=== PATIENT | male | born 1945 | race Caucasian/White ===

== ENCOUNTER 2022-11-20 10:23 | Outpatient (OUT) | payer MEDICARE, SELFPAY ==
--- NOTE | 2022-11-20 | XR_ITS ---
The [address] [address] Patient Name: OLAF BRIONES MRN: [id number] date: 1945 Sex: M Assigned Patient Location: [facility] Current Patient Location: RAD Accession/Order Number: [id number] Exam Date: 11/20/2022 11:02 Report Date: 11/20/2022 11:58 At the request of: SHANNA IVORY Procedure: XR abdomen 1V EXAM: XR abdomen 1V HISTORY: Kidney stones N20.0 COMPARISON: None. TECHNIQUE: AP view of the abdomen. FINDINGS: Nonobstructive bowel gas pattern is noted. There are bilateral renal calculi, largest on the right measuring up to 5 mm and largest on the left measuring up to 3 mm. The osseous structures are intact. XR/XR abdomen 1V IMPRESSION: Nonobstructive bowel gas pattern. Bilateral nephrolithiasis. Electronically authenticated by: SHELLEY FRIEND Date: 11/20/2022 11:58
== END 2022-11-20 10:24 | disposition home or self-care (01) ==
LOC: RAD 10:28
PROVIDERS: PCP Family Medicine; Visit Provider Urology
DX: N20.0 Calculus of kidney (principal)
CPT/HCPCS: 74018

== ENCOUNTER 2022-12-27 11:57 | Outpatient (OUT) | payer MEDICARE, SELFPAY ==
--- NOTE | 2022-12-27 12:34 | PM.CN ---
Consult Note: HPI Data of Consult Patient: new to practice Requesting Physician: Ria Kirby NP Primary Care Provider: DAV PEGUERO Consult Narrative Reason for consult: establish care Narrative: Thomas Thorne a pleasant 77 year old male presents for evaluation and management of low back pain. Today rating pain 4/10 in low back, worse with activity and experiences weakness and cramping in legs the further he walks. Patient has benefitted from back bracing and PRN tylenol. Currently on Brilinta and had a heart attack in july of this year, currently in cardiac rehab. Patient has previously had great response to thermal RFAs in lumbar spine and would like to discuss this. cc:: CC: Ria Kirby NP Review of Systems ROS Status of ROS 10 or more systems reviewed and unremarkable except as noted in history and below Musculoskeletal Reports: back pain Exam Constitutional Documenting provider has reviewed patient's vital signs: yes Common normals: no apparent distress, oriented x3, healthy appearing, alert and well nourished General appearance: cooperative HENMT Common normals: normocephalic, hearing grossly normal bilaterally and moist oral mucous membranes Head and scalp: normocephalic Eye Common normals: PERRL Pupil: PERRL Neck & C-Spine Common normals: full ROM General: normal visual inspection Chest Common normals: inspection of chest normal Respiratory Common normals: normal respiratory effort, no retractions and no use of accessory muscles Back & Pelvis Lumbar spine/lower back: ROM limited, pain with ROM and straight leg raise negative bilaterally Sacroiliac joints: SI joint(s) abnormal (bilateral positive thigh thrust fabers gaenslens and rudolph) Extremity Common normals: normal to inspection and full ROM Neuro Common normals: oriented x3, CN's II-XII intact bilaterally, moves all extremities, no focal motor deficits, no sensory deficits noted and deep tendon reflexes 2+ bilaterally Sensorium/orientation: alert Gait (neuro): antalgic Motor exam: no movement abnormalities noted and strength abnormal (BLE 4/5) Psych Common normals: mental status grossly normal, thought process normal, cooperative, affect normal, speech normal and activity/motor behavior normal Speech: normal speech Thought process: normal thought process Results Additional Findings Additional findings: I have checked an OARRS report on this patient today and there are no aberrancies noted in the prescribing history.?? A drug screen was completed and reviewed within the last year, and if there has not been a drug screen completed we ordered one today to monitor higher risk, state monitored pain medication use. As part of providing excellent, safe, comprehensive care, the following was completed at our patient's visit: 1. A medication reconciliation and review to ensure accurate knowledge of current/active medications, including asking our patients to inform us about any [id number] medications or herbal remedies/nutritional supplements/alternative remedies. 2. A review to specifically ensure our patients have had annual screening for: elevated body mass index (BMI), tobacco use, screening for depression, and screening for unhealthy alcohol use. When screening is concerning, patients are provided with education and the specific recommendation to discuss the concerning health issue and treatment options with their primary care provider. Assessment and Plan Assessment and Plan (1) Lumbar spondylosis: (2) Lumbar stenosis with neurogenic claudication: (3) Muscle spasm: (4) Bilateral sacroiliitis: Plan continue HEP continue PRN Tylenol, avoid NSAIDs with blood thinner and heart hx discussed OTC topical lidocaine patches can continue to utilize backbrace when driving for extended period of time or really physically active, cautioned over use as this can decrease muscle strength in low back and abdomen update imaging of lumbar spine with xrays flexion and extension MRI of lumbar spine without contrast to evaluate neurogenic claudication bilateral L4-5 L5-S1 mbb x2 working towards thermal rfa follow up after procedure
== END 2022-12-27 11:58 | disposition home or self-care (01) ==
LOC: PM 11:57
PROVIDERS: PCP Family Medicine; Visit Provider Nurse Practitioner
DX: M47.816 Spondylosis without myelopathy or radiculopathy, lumbar region (principal); M48.062 Spinal stenosis, lumbar region with neurogenic claudication; M62.838 Other muscle spasm; M46.1 Sacroiliitis, not elsewhere classified
CPT/HCPCS: G0463

== ENCOUNTER 2022-12-27 13:02 | Outpatient (OUT) | payer MEDICARE, SELFPAY ==
--- NOTE | 2022-12-27 | XR_ITS ---
The [address] [address] Patient Name: OLAF BRIONES MRN: [id number] date: 1945 Sex: M Assigned Patient Location: [facility] Current Patient Location: [facility] Accession/Order Number: [id number] Exam Date: 12/27/2022 15:20 Report Date: 12/27/2022 23:37 At the request of: DAVID SCRUGGS Procedure: XR lumbar spine 6V w bending EXAM: XR lumbar spine 6V w bending HISTORY: low back pain COMPARISON: None. TECHNIQUE: 7 views lumbar spine with flexion and extension FINDINGS: There are 5 lumbar type vertebral bodies. No pars defects. Grade 1 anterolisthesis at L4-5. No significant change in anterolisthesis on dynamic imaging. Vertebral body heights are maintained. Multilevel degenerative disc disease most severe at L4-5 and L5-S1. Facet arthrosis is most notable at L4-5 and L5-S1. Incidental note of aortic vascular calcification. Degenerative changes of the sacroiliac joints. XR/XR lumbar spine 6V w bending IMPRESSION: Grade 1 anterolisthesis at L4-5 without significant change on dynamic imaging. Multilevel degenerative disc disease most severe at L4-5 and L5-S1 with facet arthrosis at these levels. Electronically authenticated by: JUSTIN ELIAS Date: 12/27/2022 23:37
== END 2022-12-27 13:03 | disposition home or self-care (01) ==
LOC: RAD 13:06
PROVIDERS: PCP Family Medicine; Visit Provider Nurse Practitioner
DX: M54.50 Low back pain, unspecified (principal); M51.36 Other intervertebral disc degeneration, lumbar region
CPT/HCPCS: 72114

== ENCOUNTER 2023-01-17 10:44 | Outpatient (OUT) | payer MEDICARE, SELFPAY ==
--- NOTE | 2023-01-17 10:48 | MR_ITS ---
The [address] [address] Patient Name: OLAF BRIONES MRN: [id number] date: 1945 Sex: M Assigned Patient Location: MRI Current Patient Location: MRI Accession/Order Number: [id number] Exam Date: 01/17/2023 11:00 Report Date: 01/17/2023 12:22 At the request of: DAVID SCRUGGS Procedure: MR lumbar spine wo con MR lumbar spine wo con, 01/17/2023 11:00 AM EST INDICATION: Lumbar Stenosis COMPARISON: Prior x-ray dated 12/27/2022 TECHNIQUE: Multiplanar, multisequential MRI images of lumbar spine were obtained without contrast. FINDINGS: For dictation purposes, the lowest complete disc space in the lumbar spine considered as L5-S1. There is grade 1 anterolisthesis of L4 on L5. There is signal abnormality on T1 and T2-weighted images in the vertebral bodies of visualized spine that may suggest bone marrow reconversion in appropriate clinical setting. Bilateral renal lesions with T2 prolongation not fully characterized by this study and statistically may suggest simple renal cyst. There is normal physiologic lumbar lordosis. The vertebral height is preserved. The conus medullaris is at the level of L1. No signal abnormality within the visualized spinal cord is noted. No neural foraminal narrowing or canal stenoses at the level of T12-L1 is noted. At the level of L1-L2, there are disc bulge with mild right and moderate left neuroforaminal narrowing and no canal stenosis. At the level of L2-L3, there are disc bulge with mild bilateral neuroforaminal narrowing and mild canal stenosis. At the level of L3-4, there are disc bulge with moderate right and mild left neuroforaminal narrowing and severe canal stenosis. There is ligamentum flavum thickening and facet joint arthrosis at this level. At the level of L4-5, there are grade 1 anterolisthesis uncovering disc with moderate bilateral neuroforaminal narrowing and severe canal stenosis. There is ligamentum flavum thickening and facet joint arthrosis at this level. At the level of L5-S1, there are disc bulge with no neuroforaminal narrowing and no canal stenosis. The paraspinal muscles are unremarkable. There is a sclerotic lesion in the left iliac bone not fully characterized by this study likely a bone island. 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 Electronically authenticated by: VIRGINIA HUTCHINS Date: 01/17/2023 12:22
== END 2023-01-17 10:45 | disposition home or self-care (01) ==
LOC: MRI 10:44
PROVIDERS: PCP Family Medicine; Visit Provider Nurse Practitioner
DX: M48.062 Spinal stenosis, lumbar region with neurogenic claudication (principal); M47.816 Spondylosis without myelopathy or radiculopathy, lumbar region; M51.36 Other intervertebral disc degeneration, lumbar region
CPT/HCPCS: 72148

== ENCOUNTER 2023-02-04 09:34 | Day surgery (SDC) | payer MEDICARE, SELFPAY ==
[2023-02-04 10:16] VITALS: BP 173/77; PULSE 75; RESP 16; TEMP 37; O2SAT 98
[2023-02-04 10:16] LABS: Glucometer 209 mg/dL (74-106)
[2023-02-04 10:45] VITALS: BP 157/79; PULSE 76; RESP 18; O2SAT 99
[2023-02-04 10:49] VITALS: BP 167/77; PULSE 67; RESP 18; O2SAT 99
--- NOTE | 2023-02-04 10:50 | W.PM.PROCNOT ---
Date of procedure: 02/04/23 Pre-op diagnosis: Lumbar spondylosis Post-op diagnosis: same as pre-op Procedure: Procedure: Bilateral L4-5, L5-S1 medial branch block Medications: Bupivacaine 0.25% 6cc The patient was seen and examined in the preoperative holding area.? An informed consent was obtained and placed on the chart.? The patient was brought to the medical procedure unit and placed in the prone position.? A timeout was completed verifying correct patient, procedure site, positioning, plan, and special equipment.? Using aseptic technique, the needle was placed at left L4. Under direct fluoroscopic visualization a Quincke-tipped spinal needle was advanced to the junction of the superior articulating process with the transverse process at the designated medial branch segment.? Preceded by negative aspiration, the above-mentioned injectate was placed in 1 mL aliquots.? The procedure was repeated at left L5, S1.? The needle was removed and insertion site was covered. The same procedure, at the same levels, was completed on the right side. The patient was taken to the postprocedural recovery area and monitored for an appropriate length of time before found suitable for discharge in the company of a responsible adult. Anesthesia: Local Surgeon: Alonzo Briscoe Pathology: none sent Condition: stable Disposition: no change
[2023-02-04] MEDS: LIDOCAINE HCL 2% PF 100 MG/5 ML VIAL 1 ML INJ (10:51)
[2023-02-04] MEDS: BUPIVACAINE HCL 0.25% PF 25 MG/10 ML VIAL 8 ML INJ (10:51)
== END 2023-02-04 10:54 | disposition home or self-care (01) ==
PROVIDERS: PCP Family Medicine; Visit Provider Anesthesiology
DX: M47.816 Spondylosis without myelopathy or radiculopathy, lumbar region (principal)
CPT/HCPCS: 36415; 64493; 64494; 82948

== ENCOUNTER 2023-02-13 07:12 | Outpatient (RCR) | payer MEDICARE, SELFPAY ==
--- NOTE | 2022-10-11 13:52 | CR1_ITS ---
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
--- NOTE | 2022-11-07 15:53 | CR1_ITS ---
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
--- NOTE | 2022-12-06 08:48 | CR1_ITS ---
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
--- NOTE | 2023-01-04 10:49 | CR1_ITS ---
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
--- NOTE | 2023-02-08 15:06 | CR1_ITS ---
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
== END 2023-02-15 17:00 | disposition home or self-care (01) ==
LOC: CR 07:12
PROVIDERS: PCP Family Medicine; Visit Provider Family Medicine
DX: I25.10 Atherosclerotic heart disease of native coronary artery without angina pectoris (principal); Z98.61 Coronary angioplasty status
CPT/HCPCS: 93798

== ENCOUNTER 2023-02-13 08:42 | Outpatient (OUT) | payer MEDICARE, SELFPAY ==
--- NOTE | 2023-02-13 09:26 | P.CN_ITS ---
Consult Note: HPI Data of Consult Patient: new to practice Requesting Physician: Ria Kirby NP Primary Care Provider: DAV PEGUERO Consult Narrative Reason for consult: establish care Narrative: Thomas Thorne a pleasant 77 year old male presents for evaluation and management of low back pain. Today rating pain 8/10 in low back and bilateral thighs, worse with activity and experiences weakness and cramping in legs the further he walks. Patient has benefitted from back bracing and PRN tylenol. Currently on Brilinta and had a heart attack in july of this year, currently in cardiac rehab. Patient had 25% relief from bilateral L4-5 L5-S1 facet medial branch block #1. Would like to review MRI and additional options. cc:: CC: Ria Kirby NP Review of Systems ROS Status of ROS 10 or more systems reviewed and unremark able except as noted in history and below Musculoskeletal Reports: back pain PFSH PFSH Medical History Kidney stone Surgical History History of transurethral resection of prostate ?Z98.890 - Other specified postprocedural states (ICD-10) ?Z90.79 - Acquired absence of other genital organ(s) (ICD-10) Meds Home Medications and Allergies Home Medications Medication Instructions Recorded Confirmed Type allopurinol 300 mg tablet 300 mg PO DAILY 01/23/23 02/04/23 History amlodipine 5 mg tablet 5 mg PO DAILY 01/23/23 02/04/23 History aspirin 81 mg tablet,delayed 81 mg PO DAILY 01/23/23 02/04/23 History release atorvastatin 80 mg tablet 40 mg PO DAILY 01/23/23 02/04/23 History carvedilol 6.25 mg tablet 6.25 mg PO Q12H 01/23/23 02/04/23 History lisinopril 2.5 mg tablet 2.5 mg PO DAILY 01/23/23 02/04/23 History nitroglycerin 0.4 mg sublingual 0.4 mg sublingual Q5M PRN chest 01/23/23 02/04/23 History tablet pain ticagrelor 90 mg tablet (Brilinta) 90 mg PO Q12H 01/23/23 02/04/23 History Allergies Allergy/AdvReac Type Severity Reaction Status Date / Time albuterol Allergy Verified 02/04/23 10:09 hydrochlorothiazide Allergy Verified 02/04/23 10:09 Exam Constitutional Documenting provider has reviewed patient's vital signs: yes Common normals: no apparent distress, oriented x3, healthy appearing, alert and well nourished General appearance: cooperative HENMT Common normals: normocephalic, hearing grossly normal bilaterally and moist oral mucous membranes Head and scalp: normocephalic Eye Common normals: PERRL Pupil: PERRL Neck & C-Spine Common normals: full ROM General: normal visual inspection Chest Common normals: inspection of chest normal Respiratory Common normals: normal respiratory effort, no retractions and no use of accessory muscles Back & Pelvis Lumbar spine/lower back: ROM limited, pain with ROM and straight leg raise negative bilaterally Extremity Common normals: normal to inspection and full ROM Neuro Common normals: oriented x3, CN's II-XII intact bilaterally, moves all extremities, no focal motor deficits, no sensory deficits noted and deep tendon reflexes 2+ bilaterally Sensorium/orientation: alert Gait (neuro): antalgic Motor exam: no movement abnormalities noted and strength abnormal (BLE 4/5) Psych Common normals: mental status grossly normal, thought process normal, cooperative, affect normal, speech normal and activity/motor behavior normal Speech: normal speech Thought process: normal thought process Assessment and Plan Assessment and Plan (1) Lumbar stenosis with neurogenic claudication: Assessment and Plan: The patient has had over 3 months of moderate to severe low back pain with NC with functional impairment and inadequate response to conservative care including NSAIDS (unless there are contraindication such as concurrent blood thinners), multiple oral or topical pain medications, and home exercise program/physical therapy.? Patient has completed >6 weeks of guided home exercise program and/or formal physical therapy program without relief of their symptoms.? I have reviewed the imaging of the lumbar spine and no red flags were identified.? The imaging reveals radiographic findings consistent with lumbar stenosis and lumbar radiculopathy We discussed the risks and benefits of the procedure with the patient, and we are NOT planning on using sedation as outlined in the guidelines from Medicare unless there is a documented reason that sedation would be strongly recommended.?? ?The procedure will be completed with fluoroscopic guidance.? (2) Lumbar spondylosis: (3) Muscle spasm: (4) Lumbar radiculopathy: Plan MRI reviewed, degenerative changes noted and multilevel severe stenosis. Patient is not interested in surgical consult. Patient would like to trial ESIs bilateral L3-4 TFESI under fluoroscopy with Dr Briscoe followed by bilateral L4-5 TFESI 2 weeks following if symptoms not improved from first injection continue current medications follow up 2 weeks after injection
== END 2023-02-13 08:43 | disposition home or self-care (01) ==
LOC: PM 08:59
PROVIDERS: PCP Family Medicine; Visit Provider Nurse Practitioner
DX: M48.062 Spinal stenosis, lumbar region with neurogenic claudication (principal); M47.816 Spondylosis without myelopathy or radiculopathy, lumbar region; M62.838 Other muscle spasm; M54.16 Radiculopathy, lumbar region
CPT/HCPCS: G0463

== ENCOUNTER 2023-03-04 08:38 | Day surgery (SDC) | payer MEDICARE, SELFPAY ==
--- OUTSIDE RECORDS SUMMARY | 2023-03-04 08:43 | XMS_ITS | CCD ---
Author Name Unknown Address [id number] [place] [address] Organization [facility] Care Team Providers Care 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 Name Role Phone Jame Barraza Unavailable Unavailable Unavailable JAME BARRAZA Primary Care Physician DR SHANNA IVORY Attending Unavailable CHRIS, DR JAME Bowers Primary Care Unavailable DR SHANNA IVORY Admitting Unavailable DR SHANNA IVORY Consulting Unavailable SAGIN[place], DR AMNA Saucedo Consulting Unavailable DOMINGUEZ GUTIERREZ Admitting Unavailable DOMINGUEZ GUTIERREZ Attending Unavailable DR JAME BARRAZA Primary Care Unavailable NON STAFF Primary Care Provider Unavailsigrid Cochran DO [facility] Emergency Provider DO Steven Zamora Attending Provider NON STAFF Primary Care Provider Unavailsigrid Cochran DO [facility] Emergency Provider [phone] DO Steven Zamora Admit Provider DO Steven Zamora Attending Provider MD Juanito Barney Other Provider [phone] JAME BARRAZA Primary Care Physician [phone] Steven Zamora Admitting Unavailable Steven Zamora Attending Unavailable NON STAFF Primary Care Unavailable Juanito Barney Consulting Unavailable Jame Barraza MD Primary Care Provider [phone] Nahomi Hernandez Unavailable DAVID ANDREWS Attending Unavailable DAVID ANDREWS Admitting Unavailable Dr. Jame Barraza Primary Care Unavailab alda Ling, Dr. Canada Attending Unavailusama Ling, Dr. Canada Referring Unavaila Dr. Jame Tejeda Edward Primary Care Unavailab Curtis, Dr. Nahomi Guerrero Primary Care Unavailab alda Ling, Dr. Canada Attending Unavaila ashley Ling, Dr. [place] Referring Unavaila ashley Zamora, Dr. Ben Wilson Attending Kushal Hernandez, Dr. Nahomi Guerrero Primary Care Unavailab alda Barraza, Dr. Jame Fountain Primary Care Unavailab alda Barraza, Dr. Jame Fountain Primary Care Unavailab alda Siddiqui, Estella Unavailable Shanna IVORY Attending Unavailable Shanna IVORY Attending Unavailable Keith Panchal H Attending Unavailable Alexandre KOROMA Attending Unavailable Alexandre KOROMA Referring Unavailable Alexandre KOROMA Attending Unavailable Ashutosh Ling MD Unavailable [phone] Dav Peguero MD Primary Care Provider [phone] ASHUTOSH LING Attending Unavailable DAV PEGUERO Primary Care Unavailable Alonzo Briscoe MD Attending Unavailable Allergies Allergy Classification Reported Allergen(s) Allergy Type Date of Onset Reaction(s) Facility (20 sources) Albuterol; Translations: [albuterol] Drug Allergy 11-12-19 12 Headache (finding), Other: See Comments, Headache [facility] (17 sources) hydroCHLOROthiazide; Translations: [hydroCHLOROthiazide TABS] Drug Allergy 08-21-19 Eruption of skin (disorder), Rash [facility] (4 sources) Sulfamethoxazole / Trimethoprim; Translations: [sulfamethoxazole-trim ethoprim] Drug Allergy Unknown (qualifier value) [facility] (1 source) Albuterol Drug Allergy [facility] (6 sources) hydroCHLOROthiazide; Translations: [HYDROCHLOROTHIAZIDE] Drug Allergy 08-21-19 Rash [facility] (2 sources) Adhesive Tape; Translations: [adhesive tape] Propensity to adverse reactions 08-22-19 [facility] (1 source) Albuterol Drug Allergy 08-21-19 [facility] (1 source) hydroCHLOROthiazide Drug Allergy 08-21-19 [facility] Medications Current Medications Medication Drug Class(es) Dates Sig (Normalized) Sig (Original) Albuterol (1 source) beta2-Adrenergic Agonist Albuterol Active aspirin 81 mg delayed release oral tablet (16 sources) Platelet Aggregation Inhibitor, Nonsteroidal Anti-inflammatory Drug Start: 01-09-2023 End: 01-09-2024 take 1 tablet by mouth every other day aspirin 81 mg EC tablet Indications: Arteriosclerotic cardiovascular disease Take 1 tablet (81 mg) by mouth every other day. 45 tablet 3 01/09/2023 01/09/2024 Active Start: 11-24-2020 End: 01-09-2023 take 1 tablet by mouth once daily aspirin, enteric coated (ASPIRIN, ENTERIC COATED) 81 mg EC tablet Take 81 mg by mouth once daily. 0 11/24/2020 Active take 1 tablet by rk th once daily Aspirin 81 81 MG 1 tablet Orally Once a day Active Comment on above: Take 81 mg by mouth once daily. hydroCHLOROthiazide (1 source) Thiazide Diuretic hydroCHLOROthi azide Active Completed/Discontinued Medications Medication Drug Class(es) Dates Sig (Normalized) Sig (Original) allopurinol 300 mg oral tablet (19 sources) Xanthine Oxidase Inhibitor Start: 10-02-2018 take 1 tablet by mouth once daily allopurinol (ZYLOPRIM) 300 mg tablet Take 300 mg by mouth once daily. 0 10/02/2018 Active Comment on above: Take 300 mg by mouth once daily. amLODIPine 5 mg oral tablet (19 sources) Dihydropyridine Calcium Channel Reynaldo Start: 10-24-2018 take 1 tablet by mouth once daily amLODIPine (NORVASC) 5 mg tablet Take 5 mg by mouth once daily. 0 10/24/2018 Active Comment on above: Take 5 mg by mouth o nce daily. atorvastatin 80 mg oral tablet (7 sources) HMG-CoA Reductase Inhibitor Start: 08-22-2022 take 1 tablet by mouth once daily Atorvastatin Calcium 80 MG Oral Tablet TAKE ONE TABLET BY MOUTH ONCE A DAY Quantity: 30 Refills: 11 Ordered: 02-Oct-2022 Ben Zamora DO Start : 01-Oct-2022 Active carvedilol 6.25 mg oral tablet (10 sources) alpha-Adrenergic Reynaldo, beta-Adrenergic Reynaldo Start: 08-22-2022 take 1 tablet by mouth twice daily at mealtime carvedilol (COREG) 6.25 mg tablet Take 6.25 mg by mouth twice daily with meals. 0 08/22/2022 Active Comment on above: Take 6.25 mg by mout h twice daily with meals. cholecalciferol 0.125 mg oral capsule (6 sources) Vitamin D Vitamin D 125 MC G (5000 UT) CAPS TAKE 1 CAPSULE Daily Quantity: 0 Refills: 0 Ordered: 24-Nov-2020 DO Active diclofenac sodium 75 mg delayed release oral tablet (20 sources) Nonsteroidal Anti-inflammatory Drug Start: 09-10-2016 take 1 tablet by mouth twice daily diclofenac, EC, (VOLTAREN) 75 mg EC tablet Take 75 mg by mouth twice daily. 0 10/24/2018 Active End: 01-09-2023 take 2 tablets by mouth once daily diclofenac (Voltaren) 75 mg EC tablet Take 2 tablets (150 mg) by mouth once daily. 0 01/09/2023 Discontinued (Therapy completed) take 1 tablet by rk th twice daily Diclofenac Sodium 75MG DR TAKE ONE TABLET BY MOUTH TWICE DAILY for 30 Not-Taking Comment on above: Take 75 mg by mouth twice daily. lisinopril 2.5 mg oral tablet (10 sources) Angiotensin Converting Enzyme Inhibitor Start: 08-22-2022 take 1 tablet by mouth once daily lisinopril 2.5 mg tablet Take 2.5 mg by mouth once daily. 0 08/22/2022 Active take 1 tablet by mouth once edelmira y lisinopril 5 mg tablet Take 1 tablet (5 mg) by mouth once daily. 0 Active take 0.5 tablet by mouth once da vangie Lisinopril 5 MG Oral Tablet TAKE 1/2 TABLET DAILY. Quantity: 45 Refills: 3 Ordered: 05-Sep-2022 Eva HAHN, Ashutosh Active Comment on above: Take 2.5 mg by mouth once daily. metoprolol tartrate 25 mg oral tablet (10 sources) beta-Adrenergic Reynaldo Start: 08-20-2022 End: 08-22-2022 take 25 mg by mouth once daily Metoprolol Tartrate Discontinued 25 MG PO Daily August 20, 2022 12:00am August 22, 2022 3:22pm Start: 10-21-2020 take 1 tablet by rk th once daily metoprolol 25 mg ER Tab 25 mg = 1 tab(s), Oral, Daily, Refills(s) 0 Start Date: 9/3/21 Status: Ordered Multi Vitamin Oral Tablet (6 sources) take 1 tablet by mouth once daily Multi Vitamin Oral Tablet TAKE 1 TABLET DAILY. Quantity: 0 Refills: 0 Ordered: 24-Nov-2020 DO Active nitroglycerin 0.4 mg sublingual tablet (10 sources) Nitrate Vasodilator Start: 09-15-19 Nitroglycerin 0.4 MG Sublingual Tablet Sublingual PLACE 1 TABLET UNDER THE TONGUE EVERY 5 MINUTES FOR UP TO 3 DOSES NEEDED FOR CHEST PAIN.CALL 911 IF PAIN PERSISTS. Quantity: 1 Refills: 3 Ordered: 14-Sep-2022 Ashutosh Ling MD Start : 14-Sep-2022 Active Start: 08-22-2022 nitroglycerin sublingual (NITROQUICK) 0.4 mg SL tablet Dissolve 0.4 mg under the tongue every 5 minutes as needed for chest pain. 0 08/22/2022 Active Nitroglycerin 0. 4 MG as directed Sublingual Active Comment on above: Dissolve 0.4 mg unde r the tongue every 5 minutes as needed for chest pain. rosuvastatin calcium 20 mg oral tablet (10 sources) HMG-CoA Reductase Inhibitor Start: 3 End: 3 take 20 mg by mouth once daily Rosuvastatin Discontinued 20 MG PO Daily August 20, 2022 12:00am August 22, 2022 3:22pm Start: 10-24-2018 take 10 mg by mouth once daily rosuvastatin 20 mg Tab 10 mg = 0.5 tab(s), Oral, Daily Start Date: 10/24/18 Status: Ordered take 1 tablet by rk once daily Rosuvastatin Calcium 10 MG Oral Tablet TAKE 1 TABLET DAILY. Quantity: 90 Refills: 3 Ordered: 01-Jun-2022 Ashutosh Ling MD Active ticagrelor 90 mg oral tablet (10 sources) Start: 08-22-2022 take 1 tablet by mouth twice daily ticagrelor (BRILINTA) 90 mg tablet Take 90 mg by mouth twice daily. 0 08/22/2022 Active Brilinta 90mg Ta kke as directed Active Comment on above: Take 90 mg by mouth twice daily. trospium chloride 20 mg oral tablet (2 sources) Cholinergic Muscarinic Antagonist Start: 08-30-2022 take 1 tablet by mouth twice daily trospium (SANCTURA) 20 mg tablet Take 1 tablet by mouth twice daily for hernandez discomfort. Stop taking 48 hours before hernandez removal. 30 tablet 1 08/30/2022 Active Comment on above: Take 1 tablet by rk th twice daily for hernandez discomfort. Stop taking 48 hours before hernandez removal. Zinc (6 sources) Zinc 15 MG TABS Take 1 tablet daily Quantity: 0 Refills: 0 Ordered: 24-Nov-2020 DO Active Problems Active Problems Problem Classification Problem Date Documented Da te Episodic/Chronic Acute myocardial infarction (8 sources) Myocardial infarction; Translations: [ST elevation (STEMI) myocardial infarction of unspecified site] Onset: 08-20-2022 08-20-2022 Chronic Calculus of urinary tract (8 sources) Kidney stone; Translations: [Calculus of kidney] Onset: 10-26-2021 Episodic Coagulation and hemorrhagic disorders (2 sources) Easy bruising; Translations: [Spontaneous ecchymoses] Onset: 01-09-2023 01-09-2023 Episodic Conditions associated with dizziness or vertigo (7 sources) Dizziness; Translations: [Dizziness and giddiness] Episodic Conduction disorders (6 sources) Heart block ; Translations: [Conduction disorder, unspecified] Onset: 08-20-2022 08-20-2022 Chronic Coronary atherosclerosis and other heart disease (11 sources) Coronary arteriosclerosis; Translations: [Atherosclerotic heart disease of [place] coronary artery without angina pectoris] Onset: 08-27-2022 08-28-2022 Chronic Coronary atherosclerosis and other heart disease (9 sources) Patient post percutaneous transluminal coronary angioplasty; Translations: [Percutaneous transluminal coronary angioplasty status] Onset: 01-08-2023 01-09-2023 Episodic Diabetes mellitus without complication (5 sources) Diabetes mellitus; Translations: [Type 2 diabetes mellitus without complication] Onset: 08-27-2022 10-24-2018 Chronic Diseases of white blood cells (2 sources) Leukocytosis; Translations: [Elevated white blood cell count, unspecified] Onset: 08-27-2022 08-27-2022 Chronic Disorders of lipid metabolism (15 sources) Hyperlipidemia; Translations: [Other and unspecified hyperlipidemia] Onset: 01-08-2023 01-09-2023 Chronic E Codes: Adverse effects of medical drugs (2 sources) Adverse effect of anticoagulant antagonists, vitamin K and other coagulants, initial encounter; Translations: [Anticoagulants causing adverse effects in therapeutic use] Onset: 08-27-2022 08-27-2022 Episodic Essential hypertension (20 sources) Hypertensive disorder; Translations: [Unspecified essential hypertension] Onset: 08-27-2022 Resolved: 01-09-2023 10-24-2018 Chronic Genitourinary symptoms and ill-defined conditions (15 sources) Microscopic hematuria; Translations: [Asymptomatic microscopic hematuria] Onset: 10-27-2021 Episodic Hyperplasia of prostate (7 sources) Benign prostatic hypertrophy with outflow obstruction; Translations: [Benign prostatic hyperplasia with lower urinary tract symptoms] Onset: 10-27-2021 Chronic Immunizations and screening for infectious disease (1 source) Patient encounter status; Translations: [Other specified vaccination] Episodic Inflammatory conditions of male genital organs (3 sources) Prostatitis 10-24-2018 Episodic Nutritional deficiencies (2 sources) Undernutrition; Translations: [Mild protein-calorie malnutrition] Onset: 08-29-2022 08-29-2022 Chronic Other diseases of kidney and ureters (1 source) Urinary tract obstruction; Translations: [Other obstructive and reflux uropathy] Onset: 08-26-2022 Episodic Other ear and sense organ disorders (1 source) Impacted cerumen, bilateral Episodic Other nutritional; endocrine; and metabolic disorders (4 sources) Body mass index 25-29 - overweight; Translations: [Body Mass Index 28.0-28.9, adult] Episodic Other nutritional; endocrine; and metabolic disorders (13 sources) Overweight in adulthood with body mass index of 25 or more but less than 30; Translations: [Overweight] Onset: 01-09-2023 01-09-2023 Episodic Other nutritional; endocrine; and metabolic disorders (2 sources) Body mass index (BMI) 26.0-26.9, adult; Translations: [Body mass index (BMI) 26.0-26.9, adult] Onset: 01-09-2023 Episodic Other screening for suspected conditions (not mental disorders or infectious disease) (20 sources) Cardiovascular stress test abnormal; Translations: [Other nonspecific abnormal results of function study of cardiovascular system] Onset: 01-08-2023 01-09-2023 Episodic Screening and history of mental health and substance abuse codes (11 sources) Ex-smoker; Translations: [Personal history of tobacco use] Episodic Comment on above: former cigar smoker; Syncope (5 sources) Syncope; Translations: [Syncope and collapse] Onset: 08-20-2022 08-20-2022 Episodic Unclassified (3 sources) Asymptomatic microscopic hematuria 10-27-2021 Urinary tract infections (1 source) Urinary tract infectious disease; Translations: [Urinary tract infection, site not specified] Onset: 08-26-2022 Episodic Past or Other Problems Problem Classification Problem Date Documented Da te Episodic/Chronic Unclassified (1 source) Onset: 01-09-2023 01-09-2023 Results Test Name Value Interpretation Reference Range Facility Ambulatory Visit Summaryon 1 Ambulatory Visit Summary OLAF BRIONES :1945 Visit Date:11/26/2022 Ambulatory Visit Instructions Your Diagnosis BPH with urinary obstruction Kidney stone Asymptomatic microscopic hematuria Tests Performed Urnls Dip Stick Auto w/o Microscopy POC [id number] XR Abdomen 1 View -- Results Pending -- Please visit your patient portal for your results or contact your primary care physician. Your Care Team Attending Physician - Shanna IVORY MD Primary Care Physician - SUDHIR HAHN, DAV Martinez This Is Your Medications List Contact prescribing physician if questions or concerns Misc Prescription ([facility] ASPIRIN EC 81 MG TABLET) allopurinol (allopurinol 300 mg Tab) amlodipine (amLODIPine 5 mg Tab) atorvastatin (atorvastatin 80 mg Tab) carvedilol (carvedilol 6.25 mg Tab) lisinopril (lisinopril 2.5 mg Tab) metoprolol (metoprolol 25 mg ER Tab) nitroglycerin (nitroglycerin 0.4 mg sublingual Tab) rosuvastatin (rosuvastatin 20 mg Tab) ticagrelor (Brilinta (ticagrelor) 90 mg oral tablet) Procedures Performed Cystourethroscopy with irrigation and evacuation of multiple obstructing clots (08/29/2022), Cystourethroscopy, with fulguration (including cryosurgery or laser surgery) of trigone, bladder neck, prostatic fossa, urethra, or periurethral glands (08/29/2022), Transurethral resection; residual or regrowth of obstructive prostate tissue including control of postoperative bleeding, complete (vasectomy, meatotomy, cystourethroscopy, urethral calibration and/or dilation, and internal urethrotomy are included) (08/29/2022), Cystoscopy (08/18/2013), TURP - Transurethral resection of prostate (2006), Urodynamics (2006), Transrectal biopsy of prostate using ultrasound (US) guidance (2005), ESWL - Extracorporeal shockwave lithotripsy for renal calculus (2000). Discharge Vitals Heart Rate (Peripheral) 58 Respiratory Rate 16 Blood Pressure 140/79 Height 172 cm Height 68 in Weight 77.4 kg Weight 170.28 lb BMI 26.16 What to do next Scheduled Follow-Up Appointments Saturday 8:45 AM EDT With: CACHORRO HAHN, Shanna Sánchez Where: [facility] Pathology Noteon 11-26-2022 Pathology Note [id number] [facility] Patient Educationon 11-27-19 Patient Education Nephrology Dietary Guidelines to Help Prevent Kidney Stones Kidney stones are deposits of minerals and salts that form inside your kidneys. Your risk of developing kidney stones may be greater depending on your diet, your lifestyle, the medicines you take, and whether you have certain medical conditions. Most people can lower their chances of developing kidney stones by following the instructions below. Your dietitian may give you more specific instructions depending on your overall health and the type of kidney stones you tend to develop. What are tips for following this plan? Reading food labels ? Choose foods with no salt added or low-salt labels. Limit your salt (sodium) intake to less than 1,500 mg a day. ? Choose foods with calcium for each meal and snack. Try to eat about 300 mg of calcium at each meal. Foods that contain 200?500 mg of calcium a serving include: ? 8 oz (237 mL) of milk, wsdtgpn-atyquqkunyvi-qiewd milk, and calcium-fortifiedfruit juice. Calcium-fortified means that calcium has been added to these drinks. ? 8 oz (237 mL) of kefir, yogurt, and soy yogurt. ? 4 oz (114 g) of tofu. ? 1 oz (28 g) of cheese. ? 1 cup (150 g) of dried figs. ? 1 cup (91 g) of cooked broccoli. ? One 3 oz (85 g) can of sardines or mackerel. Most people need 1,000?1,500 mg of calcium a day. Talk to your dietitian about how much calcium is recommended for you. Shopping ? Buy plenty of fresh fruits and vegetables. Most people do not need to avoid fruits and vegetables, even if these foods contain nutrients that may contribute to kidney stones. ? When shopping for convenience foods, choose: ? Whole pieces of fruit. ? Pre-made salads with dressing on the side. ? Low-fat fruit and yogurt smoothies. ? Avoid buying frozen meals or prepared deli foods. These can be high in sodium. ? Look for foods with live cultures, such as yogurt and kefir. ? Choose high-fiber grains, such as whole-wheat breads, oat bran, and wheat cereals. Cooking ? Do not add salt to food when cooking. Place a salt shaker on the table and allow each person to add his or her own salt to taste. ? Use vegetable protein, such as beans, textured vegetable protein (TVP), or tofu, instead of meat in pasta, casseroles, and soups. Meal planning ? Eat less salt, if told by your dietitian. To do this: ? Avoid eating processed or pre-made food. ? Avoid eating fast food. ? Eat less animal protein, including cheese, meat, poultry, or fish, if told by your dietitian. To do this: ? Limit the number of times you have meat, poultry, fish, or cheese each week. Eat a diet free of meat at least 2 days a week. ? Eat only one serving each day of meat, poultry, fish, or seafood. ? When you prepare animal protein, cut pieces into small portion sizes. For most meat and fish, one serving is about the size of the palm of your hand. ? Eat at least five servings of fresh fruits and vegetables each day. To do this: ? Keep fruits and vegetables on hand for snacks. ? Eat one piece of fruit or a handful of berries with breakfast. ? Have a salad and fruit at lunch. ? Have two kinds of vegetables at dinner. ? Limit foods that are high in a substance called oxalate. These include: ? Spinach (cooked), rhubarb, beets, sweet potatoes, and Bangladeshi chard. ? Peanuts. ? Potato chips, north korean fries, and baked potatoes with skin on. ? Nuts and nut products. ? Chocolate. ? If you regularly take a diuretic medicine, make sure to eat at least 1 or 2 servings of fruits or vegetables that are high in potassium each day. These include: ? Avocado. ? Banana. ? [place], prune, carrot, or tomato juice. ? Baked potato. ? Cabbage. ? Beans and split peas. Lifestyle ? Drink enough fluid to keep your urine pale yellow. This is the most important thing you can do. Spread your fluid intake throughout the day. ? If you drink alcohol: ? Limit how much you use to: ? 0?1 drink a day for women who are not . ? 0?2 drinks a day for men. ? Be aware of how much alcohol is in your drink. In the [place] one drink equals one 12 oz bottle of beer (355 mL), one 5 oz glass of wine (148 mL), or one 1? oz glass of hard liquor (44 mL). ? Lose weight if told by your health care provider. Work with your dietitian to find an eating plan and weight loss strategies that work best for you. General information ? Talk to your health care provider and dietitian about taking daily supplements. You may be told the following depending on your health and the cause of your kidney stones: ? Not to take supplements with vitamin C. ? To take a calcium supplement. ? To take a daily probiotic supplement. ? To take other supplements such as magnesium, fish oil, or vitamin B6. ? Take ledv-itt-gelzxzf and prescription medicines only as told by your health care provider. These include supplements. What foods should I limit? Limit your in (more content not included)... Normal [facility] RAD - MISCon 11-26-2022 ED [facility] [id number] Normal [facility] Urology Office/Clinic Noteon 11-26-2022 Urology Office/Clinic Note Chief Complaint 1yr KUB HPI Staff Pt is here today for 1yr KUB due to BPH, Kidney Stone & Microscopic Hematuria. *Allopurinol 300mg qd therapy. At that time PRW discussed DC'ing PSA checks due to pt's advancing age. Since then pt has gone [place] [facility] [place] CC: Lower Pelvic Pain & Blood clots in urine PVR at that time 500ml Catheter Placed C&S 600 cfu/ml Staphylococcus species coagulase negative Sandy not indicative of a Cath specimen CTU 08/26/22 Dr Koroma did see pt, due to recent cardiac cath & heart attack, pt was transferred to [facility]. There pt underwent Cysto/Clot Evacuation/Litholapaxy & TURP 08/28/22 Stone Analysis done 08/28/22 Pt states he has had dark colored urine for yrs, has been clear since the procedures. Denies all concerns at this time. History of Present Illness Tests reviewed: reviewed UA and KUB. I have reviewed the previous health record information and history for this patient from . I have reviewed and verified the staff HPI to be accurate for this encounter. There have been no associated fever, chills, flank pain, or blood in the urine. Denies any urinary infections since last encounter. Review of Systems PHQ Score Initial Depression Screen Score: 0 ROS - Provider Constitutional: denies weight loss, denies hot flashes. Eyes: denies eye problems. Gastrointestinal: denies nausea, denies vomiting. Cardiovascular: denies chest pain or angina. Integumentary: no dryness Musculoskeletal: denies musculoskeletal symptoms. ENMT: denies otolaryngeal symptoms. Respiratory: no shortness of breath. Heme/Lymph: denies easy bleeding tendency, denies easy bruising tendency. Psychiatric: no confusion, no anxiety. Genitourinary: See HPI. Physical Exam Vitals & Measurements HR: 58(Peripheral) RR: 16 BP: 140/79 HT: 68 in HT: 172 cm WT: 77.4 kg WT: 170.28 lb BMI: 26.16 General Appearance: alert, no distress, well nourished, well developed male. Assessment/Plan 1. BPH with urinary obstruction (N40.1: Benign prostatic hyperplasia with lower urinary tract symptoms) Pt. is not on any BPH medications at this time and is doing well overall w/ his urination w/ no bothersome symptoms. Pt states [facility] 2.5 done 04/15/20. Per last note, annual PSA checks are no longer needed due to pt's advancing age. Since then pt has gone [place] [facility] [place] CC: Lower Pelvic Pain & Blood clots in urine PVR at that time 500ml Catheter Placed C&S 600 cfu/ml Staphylococcus species coagulase negative Sandy not indicative of a Cath specimen CTU 08/26/22 Dr Koroma did see pt, due to recent cardiac cath & heart attack, pt was transferred to [facility]. There pt underwent Cysto/Clot Evacuation/Litholapaxy & TURP 08/28/22 Pt states he has had dark colored urine for yrs, has been clear since the procedures. Denies all concerns at this time. 2. Kidney stone (N20.0: Calculus of kidney) KUB 10/26/21 - bilateral nephrolithiasis, greater on the left. Right side harder to visualize due to bowel content. Continues Allopurinol 300mg qd. Will continue to monitor stones. Stone Analysis done 08/28/22 - CaOx [place] 50%, CaOx [place] 40%, and minor components 10% KUB 11/20/22 - bilat renal calculi, largest on Rt measuring up to 5mm and largest on Lt measuring up to 3mm Advised pt that the size of his stones are to the point that would most likely need treatment, but we are unable to treat them due to the pt needing to be on blood thinners since having a recent heart attack. Advised pt that we will continue to monitor them with repeat imaging. Advised pt that if one of the stones leaves the kidney, they may cause pain. Follow up in 1 yr w/KUB. All questions/concerns were discussed. Pt to call the office if he encounters any issues prior. Pt acknowledges understanding. -Will order KUB. 3. Asymptomatic microscopic hematuria (R31.21: Asymptomatic microscopic hematuria) Chronic; UA today is negative for blood and infection. Denies gross hematuria. S/p Cysto done 2018. Follow-up With When Contact Information CACHORRO HAHN, JENNIFER Carvalho In 1 year [facility] [address], [place] [address]- Additional Instructions: w/KUB Patient Education Dietary Guidelines to Help Prevent Kidney Stones I, Sheila Tripathi , personally scribed for Dr. Ivory on 11/26/2022 14:08:10. . .. Problem List/Past Medical History Ongoing Asymptomatic microscopic hematuria BPH with urinary obstruction BPH without urinary obstruction Diabetes Gross hematuria Hypertension Kidney stone Microscopic hematuria Myocardial infarction Prostatitis Weak urinary stream Historical No qualifying data Procedure/Surgical History Cystourethroscopy with irrigation and evacuation of multiple obstructing clots (08/29/2022), Cystourethroscopy, with fulguration (including cryosurgery or laser surgery) of trigone, bladder n (more content not included)... [facility] Comment on above: Result Comment: Elec tronically Signed By: CACHORRO HAHN, Shanna Sánchez\.br\Date and Time Signed: 11/26/22 14:10 EDT\.br\Electronically Co-Signed By: Sheila Tripathi\.br\Date and Time Co-Signed: 11/26/22 14:08 EDT Physician Orderon 11-20-2022 Physician Order [id number]#1.00CD:127 [facility] Auth for Release of Medical Recordson 09-27-2022 Auth for Release of Medical Records [id number]#1.00CD:127 [facility] Consultation Noteon 09-20-19 Consultation Note [id number]#1.00CD:127 [facility] Consultation Note [id number]#1.00CD:127 [facility] Consultation Note [id number]#1.00CD:127 [facility] Consultation Note [id number]#1.00CD:127 [facility] Lab Reportson 09-19-2022 Lab Reports [id number]#1.00CD:127 [facility] Lab Reports [id number]#1.00CD:127 Normal [facility] Lab Reports [id number]#1.00CD:127 Normal [facility] Lab Reports [id number]#1.00CD:127 [facility] Operative Reporton Operative Report [id number]#1.00CD:127 Normal [facility] Operative Report [id number]#1.00CD:127 [facility] CNPN Telephone (UROLMN) -- OLAF BRIONES ([id number]) 1945 M Date Time Provider Department 09/06/22 JUSTINE WILSON During your visit today, we recorded the following information about you: Justine Wilson RN 09/06/2022 10:31 AM Signed ----- Message from Jocelin Gr sent at 09/06/2022 8:23 AM EDT ----- Regarding: medciation script needed Contact: Pt is calling in to see if the flomax can be called in. The pharmacy is not at [facility]. I will need to call them when its done. Dr Koroma is asking why he is on flomax? Please advise. Justine Wilson RN 09/06/2022 10:31 AM Signed I tried calling the patient, no answer. Left VM. Dr. Andrews said patient can stop the flomax and trospium. She originally had recommended the flomax for residual prostate tissue but said he doesn't need to be on it. She is fine with him following up with Dr. Koroma for further management Justine Wilson RN Allergies As of Date: 09/06/2022 Noted Allergy Reaction ALBUTEROL 11/12/2011 14 - Other: See Comments HYDROCHLOROTHIAZIDE 08/20/2022 2 - Rash Date Reviewed: 08/31/2022 Reviewed by: Tung Rojo RN - Fully Assessed Reason for Visit: Patient Update [1234] Prescriptions as of 09/06/2022 - trospium (SANCTURA) 20 mg tablet Take 1 tablet by mouth twice daily for hernandez discomfort. Stop taking 48 hours before hernandez removal. - allopurinol (ZYLOPRIM) 300 mg tablet Take 300 mg by mouth once daily. - amLODIPine (NORVASC) 5 mg tablet Take 5 mg by mouth once daily. - carvedilol (COREG) 6.25 mg tablet Take 6.25 mg by mouth twice daily with meals. - ticagrelor (BRILINTA) 90 mg tablet Take 90 mg by mouth twice daily. - aspirin, enteric coated (ASPIRIN, ENTERIC COATED) 81 mg EC tablet Take 81 mg by mouth once daily. - lisinopril 2.5 mg tablet Take 2.5 mg by mouth once daily. - diclofenac, EC, (VOLTAREN) 75 mg EC tablet Take 75 mg by mouth twice daily. - nitroglycerin sublingual (NITROQUICK) 0.4 mg SL tablet Dissolve 0.4 mg under the tongue every 5 minutes as needed for chest pain. Problem List As Of Date 09/06/2022 Noted Resolved Hematuria [R31.9] 08/27/2022 Coronary artery disease involving [place]*08/27/2022 Adverse reaction to antiplatelet agent [T45.7X5*08/27/2022 Myocardial infarction (HCC) [I21.9] 08/27/2022 Essential (primary) hypertension [I10] 08/27/2022 Type 2 diabetes mellitus without complication, *08/27/2022 Leukocytosis [D72.829] 08/27/2022 Malnutrition of mild degree (HCC) [E44.1] 08/29/2022 Encounter Status:Closed by JUSTINE WILSON RN on 09/06/22 Normal [facility] Ambulatory Visit Summaryon 0 - Ambulatory Visit Summary OLAF BRIONES :1945 Visit Date:09/05/2022 Ambulatory Visit Instructions Your Care Team Primary Care Physician - CHRIS HAHN, JAME Bowers This Is Your Medications List allopurinol (allopurinol 300 mg Tab) amlodipine (amLODIPine 5 mg Tab) diclofenac (diclofenac sodium 75 mg Oral EC Tab) metoprolol (metoprolol 25 mg ER Tab) rosuvastatin (rosuvastatin 20 mg Tab) Procedures Performed Cystoscopy (08/18/2013), TURP - Transurethral resection of prostate (2006), Urodynamics (2006), Transrectal biopsy of prostate using ultrasound (US) guidance (2005), ESWL - Extracorporeal shockwave lithotripsy for renal calculus (2000). 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,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) Post PTCA (V45.82) (Z98.61) Orders Arteriosclerotic cardiovascular disease (ASCVD) Renew: Aspirin 81 MG Oral Tablet Delayed Release; TAKE 1 TABLET DAILY Renew: Lisinopril 5 MG Oral Tablet; TAKE 1/2 TABLET DAILY Arteriosclerotic cardiovascular disease (ASCVD), Hyperlipemia Renew: Atorvastatin Calcium 80 MG Oral Tablet; TAKE 1 TABLET AT BEDTIME Arteriosclerotic cardiovascular disease (ASCVD), Post PTCA Cardiac Rehab Referral Evaluation and Treatment Evaluate AND Treat Status: Hold For - Scheduling Requested for: [id number] Agreement : I agree to have my patient participate in the phase III outpatient cardiac rehabilitation program after completion of the phase II program. Consent : I consent to have my patient participate in the cardiac rehabilitation program. I will continue regular medical care of my patient throughout his/her participation in the program. Individualized Treatment Plan and Exercise Prescription : Request the Pulp Drier Firer to share responsibility for developing an ITP and exercise prescription for your patient only during enrollment in the phase II program I authorize the Cardiac Rehabilitation Department to : Current lab values are helpful in order to assess the lipid status and individualize diet therapy. A venous blood sample will be drawn and lipids analyzed at the laboratory I authorize the Cardiac Rehabilitation Department to : Schedule a symptom limited graded exercise test with 12 lead ECG prior to starting cardiac rehabilitation and at discharge, if needed. Overweight with body mass index (BMI) of 27 to 27.9 in adult Healthy Weight Tips; Status:Complete; Done: [id number] Some eating tips that can help you lose weight.; Status:Complete; Done: [id number] SocHx: Former smoker Tobacco Use Screening; Status:Complete; Done: [id number] Patient Instructions Please bring all medicines, vitamins, and herbal supplements with you when you come to the office. Prescriptions will not be filled unless you are compliant with your follow up appointments or have a follow up appointment scheduled as per instruction of your physician. Refills should be requested at the time of your visit. Follow up in 4 months [facility] cardiac rehab -one month History of Present Illness Assessment Patient is here for follow-up continue management for history of previous evaluation for dizziness, abnormal stress test, hypertension and hyperlipidemia. Since last time I saw him he presented to the hospital with acute inferior wall myocardial infarction. Cardiac catheterization showed RCA disease and moderate LAD disease. He was treated with PCI but following that he developed hematuria ultimately went to the [facility] where he underwent TURP and removal of bladder stone. His antiplatelet was not interrupted. Patient reports he is feeling better. He denies chest pain, lightheadedness, dizziness or syncope. He reports no recurrence of her hematuria over the last few days. Assessment 1. Recent presentation with acute inferior wall myocardial infarction and PCI to the RCA with moderate disease of the LAD 2. Borderline abnormal stress test. In the past treated conservatively due to lack of angina in the past and the size of ischemia his cardiac catheterization recently showed RCA disease which was stented and moderate LAD disease 3. Hypertension controlled on home recording with component of whitecoat effect 4. Hyperlipidemia 5. Borderline abnormal EKG 6. Borderline overweight 7. Previous history of dizziness improved and no recurrence 8. Recent history of hematuria improved after TURP and removal of bladder stone Plan 1. I reviewed with the patient results of his recent cardiac catheterization, lab work recent hospitalization record 2. I told him if there is any recurrence of his hematuria we will consider either switching him to Plavix or discontinuation of aspirin down the road 3. We discussed risk factor modification 4. I recommended cardiac rehab in 4 weeks if no further hematuria 5. Follow-up in 6 months with plan to repeat lab work 6. I I advised him to notify me change in cardiac status or symptoms Surgical History Problems Denied: History of Complete colonoscopy History of Prostate surgery History of Ureteroneocystostomy History of Urinary catheter placement Current Meds Medication NameInstruction Allopurinol 300 MG Oral TabletTAKE 1 TABLET DAILY. amLODIPine Besylate 5 MG Oral TabletTAKE 1 TABLET DAILY. Aspirin EC 81 MG TBECTAKE 1 TABLET (more content not included)... Normal [employer] Tobacco Screening.on 023 Adult depression screening assessment No [facility] [employer] DO Work Phone: Fall risk assessment a) No falls within the last year [facility] [employer] 250 DO Work Phone: Tobacco use status CP b) No M [facility] [employer] 250 DO Work Phone: CNPEliana [facility] ([id number]) 1945 M Date Time Provider Department 09/04/22 DEBORAH IBARRA PODCCP During your visit today, we recorded the following information about you: Deborah Ibarra RN 09/04/2022 12:52 PM Signed PATIENT INFORMATION Record ID: [id number] Patient Name: [facility]: [facility] [place]: [facility] Attending: David Andrews Center: Urology INSTRUCTIONS SN to remind patient of appointment date, time, location All Clear All Clear SURVEY INFORMATION Medical/Nurse Outbound Sales Specialist: Deborah Ibarra 1. Your discharge instructions are important in guiding you through the recovery process. Is there anything I could help you clarify on your discharge instructions? (Standard Question) No 2. Do you have a follow up appointment related to your hospital stay scheduled within the next 30 days? (Standard Question) Yes 3. If you have a drain or catheter, have you experienced any difficulties caring for these? (Red Flag Question) No, I have instructions I can follow 4. Have you had any stomach problems such as, constipation, diarrhea, bloating, nausea/vomiting, or pain? (Red Flag Question) No 5. Many patients have concerns about their medications once they are home. Do you have any questions about getting or taking your medications? (Standard Question) No 6. Do you have any new or different symptoms? (Standard Question) No Allergies As of Date: 09/04/2022 Noted Allergy Reaction ALBUTEROL 11/12/2011 14 - Other: See Comments HYDROCHLOROTHIAZIDE 08/20/2022 2 - Rash Date Reviewed: 08/31/2022 Reviewed by: Tung Rojo RN - Fully Assessed Reason for Visit: Follow Up Phone Call [[phone]] Cmt: All Clear Prescriptions as of 09/04/2022 - trospium (SANCTURA) 20 mg tablet Take 1 tablet by mouth twice daily for hernandez discomfort. Stop taking 48 hours before hernandez removal. - allopurinol (ZYLOPRIM) 300 mg tablet Take 300 mg by mouth once daily. - amLODIPine (NORVASC) 5 mg tablet Take 5 mg by mouth once daily. - carvedilol (COREG) 6.25 mg tablet Take 6.25 mg by mouth twice daily with meals. - ticagrelor (BRILINTA) 90 mg tablet Take 90 mg by mouth twice daily. - aspirin, enteric coated (ASPIRIN, ENTERIC COATED) 81 mg EC tablet Take 81 mg by mouth once daily. - lisinopril 2.5 mg tablet Take 2.5 mg by mouth once daily. - diclofenac, EC, (VOLTAREN) 75 mg EC tablet Take 75 mg by mouth twice daily. - nitroglycerin sublingual (NITROQUICK) 0.4 mg SL tablet Dissolve 0.4 mg under the tongue every 5 minutes as needed for chest pain. Problem List As Of Date 09/04/2022 Noted Resolved Hematuria [R31.9] 08/27/2022 Coronary artery disease involving [place]*08/27/2022 Adverse reaction to antiplatelet agent [T45.7X5*08/27/2022 Myocardial infarction (HCC) [I21.9] 08/27/2022 Essential (primary) hypertension [I10] 08/27/2022 Type 2 diabetes mellitus without complication, *08/27/2022 Leukocytosis [D72.829] 08/27/2022 Malnutrition of mild degree (HCC) [E44.1] 08/29/2022 Encounter Status:Closed by DEBORAH IBARRA on 09/04/22 Normal [facility] CBC panel Auto (Bld)on 08-31 Erythrocyte distribution width (RBC) [Ratio] 12.8 % Normal 11.5-15.0 [facility] Comment on above: Order Comment: Speci men Type: BLOOD SPECIMENOrdering Facility: [facility] Address: [address] [place] [address] Performed By: #### 5 8410-2 ####[facility] LABCLIA [id number] [place] [address] [place] Hematocrit (Bld) [Volume fraction] 30.7 % Low 39.0-51.0 [facility] Comment on above: Order Comment: Speci men Type: BLOOD SPECIMENOrdering Facility: [facility] Address: [address] [place] [address] Performed By: #### 5 8410-2 ####[facility] LABCLIA [id number] [place] [address] [place] Hemoglobin (Bld) [Mass/Vol] 10.4 g/dL Low 13.0-17.0 [facility] Comment on above: Order Comment: Speci men Type: BLOOD SPECIMENOrdering Facility: [facility] Address: [address] [address] Performed By: #### 5 8410-2 ####[facility] LABIA [id number] [address] [place] MCH (RBC) [Entitic mass] 31.4 pg Normal 26.0-34.0 [facility] Comment on above: Order Comment: Speci men Type: BLOOD SPECIMENOrdering Facility: [facility] Address: [address] [address] Performed By: #### 5 8410-2 ####[facility] LABIA [id number] [address] [place] MCHC (RBC) [Mass/Vol] 33.9 g/dL Normal 30.5-36.0 [facility] Comment on above: Order Comment: Speci men Type: BLOOD SPECIMENOrdering Facility: [facility] Address: [address] [place] [address] Performed By: #### 5 8410-2 ####[facility] LABIA [id number] [address] [place] MCV (RBC) [Entitic vol] 92.7 fL Normal 80.0-100.0 [facility] Comment on above: Order Comment: Speci men Type: BLOOD SPECIMENOrdering Facility: [facility] Address: [address] Performed By: #### 5 8410-2 ####[facility] LABIA [id number] [address] [place] Nucleated RBC (Bld) [#/Vol] 10*3/uL Normal <0.01 [facility] Comment on above: Order Comment: Speci men Type: BLOOD SPECIMENOrdering Facility: [facility] Address: [address] [place], [place] [address] Performed By: #### 5 8410-2 ####[facility] LABCLIA [id number] [place] [address] [place] Platelet mean volume (Bld) [Entitic vol] 11.5 fL Normal 9.0-12.7 [facility] Comment on above: Order Comment: Speci men Type: BLOOD SPECIMENOrdering Facility: [facility] Address: [address] [place] [address] Performed By: #### 5 8410-2 ####[facility] LABIA [id number] [place] [address] [place] Platelets (Bld) [#/Vol] 194 10*3/uL Normal 150-400 [facility] Comment on above: Order Comment: Speci men Type: BLOOD SPECIMENOrdering Facility: [facility] Address: [address] Performed By: #### 5 8410-2 ####[facility] LABIA [id number] [place] [address] [place] RBC (Bld) [#/Vol] 3.31 10*6/uL Low 4.20-6.00 [facility] Comment on above: Order Comment: Speci men Type: BLOOD SPECIMENOrdering Facility: [facility] Address: [address] [place] [address] Performed By: #### 5 8410-2 ####[facility] LABCLIA [id number] [place] [address] [place] WBC (Bld) [#/Vol] 10.56 10*3/uL Normal 3.70-11.00 [facility] Comment on above: Order Comment: Speci men Type: BLOOD SPECIMENOrdering Facility: [facility] Address: [address] [place], [place] [address] Performed By: #### 5 8410-2 ####[facility] LABCLIA [id number] [place] [id number] [facility] CNDSon 08-31-2022 CNDS HNO ID: [id number] Author: David Andrews MD Service: Urology Author Type: Physician Type: Discharge Summary Filed: 08/31/2022 12:18 PM Note Text: DISCHARGE SUMMARY UROLOGY PATIENT NAME: Olaf Briones ADMISSION DATE: 08/27/2022 DISCHARGE DATE: 08/31/2022 Attending Physician: David Andrews MD Code Status: Not on file Highest Readmission Risk Score: 18 The 30 day readmissions risk score is derived from an internally validated risk model which evaluates patient level characteristics, utilization history, medication orders and lab results up until the day of discharge. Patients with a score of 40 or above are considered highest risk for readmission. Specific patient level drivers will be listed at the bottom of the summary. Reason for Hospitalization: Gross hematuria Operations During Hospitalization: Cystoscopy, cystolithopaxy, TURP Procedures During Hospitalization: Intubation for surgery Hospital Course: Patient was transferred from OSH for management of hematuria following recent STEMI s/p drug eluting stent and DAPT. - Day of admission DOA#0: AMET for dizziness likely 2/2 orthostatic hypostation. Started on empiric IV Zosyn. Blood and urine cultures obtained. EKG ordered without ST hcanges. Cardiology consulted, recommend to continue DAPT for recent stent. Urine continued to be bloody on continuous bladder irrgation. IV fluids provided. - DOA#1: Patient was evaluated by cardiology as intermediate risk and anesthesia as high risk for surgery. Echo was done showing EF 55%. Patient was taken to OR where cystoscopy revealed bleeding from intravesical prostastic regrowth. A cystoscopy, clot evac, cystolitholapaxy, and limited TURP to remove the bleeding tissue was performed. The patient was admitted to the SICU post operatively for monitoring of hemodynamic status and electrolytes given recent STEMI and water intravesical irrigation. He was stable intervention was not required - DOA#2/POD#1: Patient stable in SICU, ready to transfer to [facility]. Hernandez light pink on traction. Discontinued on Zosyn given negative blood and urine cultures. - DOA#3/POD#2: Hemoglobin continues to be stable. Urine light pink off traction. Transferred to [facility] - DOA#4/POD#3: Will discharge today with hernandez and plan for trial of void with home urologist in 1 week. Transitions of Care Critical Issues: Discharge with hernandez LABS AND PROCEDURES PENDING AT DISCHARGE: No pending results. Consulting Teams During Hospitalization: Anesthesiology: Preop clearance Cardiology: Recent STEMI, preop clearanace Treatment Team: Attending Provider: David Andrews MD Patient Condition @ Discharge: Stable Discharge Disposition: Home with Self Care Information Provided to Patient: On discharge instructions Diet: Resume pre-hospital diet Activity: Resume pre-hospital activity Wound/Surgical Site Care: None ALLERGIES Allergen Reactions Albuterol Other: See Comments Hydrochlorothiazide Rash Discharge Medications: Medication List START taking these medications trospium 20 mg tablet Commonly known as: SANCTURA Take 1 tablet by mouth twice daily for hernandez discomfort. Stop taking 48 hours before hernandez removal. CONTINUE taking these medications allopurinol 300 mg tablet Commonly known as: ZYLOPRIM amLODIPine 5 mg tablet Commonly known as: NORVASC aspirin, enteric coated 81 mg EC tablet Commonly known as: ASPIRIN, ENTERIC COATED carvedilol 6.25 mg tablet Commonly known as: COREG diclofenac (EC) 75 mg EC tablet Commonly known as: VOLTAREN lisinopril 2.5 mg tablet nitroglycerin sublingual 0.4 mg SL tablet Commonly known as: NITROQUICK ticagrelor 90 mg tablet Commonly known as: BRILINTA Where to Get Your Medications These medications were sent to [facility] [address] [place] [address] Hours: Saturday-Saturday 7am-8pm, Saturday, Saturday and Holidays 9am-5pm trospium 20 mg tablet Future Appointments: No future appointments. The patient's risk for 30-day readmission is determined using the following contributing factors: Pt variables contributing to increased readmission risk: 30 Active Medication Orders 21 Most Recent BUN Result 9.3 First Resulted Calcium During Admission 1 Insurance - Medicare SIGNATURE: Prema Feliz MD DATE: August 31, 2022 TIME: 8:41 AM [facility] STAFF PHYSICIAN NOTE OF PERSONAL INVOLVEMENT IN CARE I have reviewed the progress note obtained and documented by the resident and I personally participated in the ewing components. I have discussed the case and management of the patient's care. The following comments revise or confirm relevant ewing components of the note. VSS, no physical signs of active bleeding. Plan for DC today and with follow up locally for catheter removal and TOV. Discussed with both patient and his . Time spent on discharge > 30 minutes including care coordinatio (more content not included)... Normal [facility] Comprehensive metabolic 2000 panelon 08-31-2022 Albumin [Mass/Vol] 3.8 g/dL Low 3.9-4.9 [facility] Comment on above: Order Comment: Speci men Type: BLOOD SPECIMENOrdering Facility: [facility] Address: [address] [address] Performed By: #### 2 4323-8, , 2776-02 ####[facility] LABCLIA [id number] [place] [address] [place] ALP [Catalytic activity/Vol] 116 U/L High 38-113 [facility] Comment on above: Order Comment: Speci men Type: BLOOD SPECIMENOrdering Facility: [facility] Address: [address] [address] Performed By: #### 2 4323-8, , 2776-02 ####[facility] LABIA [id number] [address] [place] ALT [Catalytic activity/Vol] 23 U/L Normal 10-54 [facility] Comment on above: Order Comment: Speci men Type: BLOOD SPECIMENOrdering Facility: [facility] Address: [address] [address] Performed By: #### 2 4323-8, , 2776-02 ####[facility] LABIA [id number] [address] [place] Anion gap [Moles/Vol] 9 mmol/L Normal 9-18 [facility] Comment on above: Order Comment: Speci men Type: BLOOD SPECIMENOrdering Facility: [facility] Address: [address] Performed By: #### 2 4323-8, 74177-8, 2776- ####[facility] LABCLIA [id number] [place] [address] [place] AST [Catalytic activity/Vol] 19 U/L Normal 14-40 [facility] Comment on above: Order Comment: Speci men Type: BLOOD SPECIMENOrdering Facility: [facility] Address: [address] Performed By: #### 2 4323-8, 19925-9, 2776- ####[facility] LABCLIA [id number] [place] [address] [place] Bilirubin [Mass/Vol] 0.3 mg/dL Normal 0.2-1.3 [facility] Comment on above: Order Comment: Speci men Type: BLOOD SPECIMENOrdering Facility: [facility] Address: [address] [address] Performed By: #### 2 4323-8, , 2776-02 ####[facility] LABIA [id number] [place] [address] [place] Calcium [Mass/Vol] 9.1 mg/dL Normal 8.5-10.2 [facility] Comment on above: Order Comment: Speci men Type: BLOOD SPECIMENOrdering Facility: [facility] Address: [address] Performed By: #### 2 4323-8, 31066-5, 2776-02 ####[facility] LABIA [id number] [place] [address] [place] Chloride [Moles/Vol] 105 mmol/L Normal 97-105 [facility] Comment on above: Order Comment: Speci men Type: BLOOD SPECIMENOrdering Facility: [facility] Address: [address] Performed By: #### 2 4323-8, , 2776-02 ####[facility] LABCLIA [id number] [place] [address] [place] CO2 [Moles/Vol] 25 mmol/L Normal 22-30 [facility] Comment on above: Order Comment: Speci men Type: BLOOD SPECIMENOrdering Facility: [facility] Address: [address] [place] [address] Performed By: #### 2 4323-8, , 2776-02 ####[facility] LABIA [id number] [address] [place] Creatinine [Mass/Vol] 0.88 mg/dL Normal 0.73-1.22 [facility] Comment on above: Order Comment: Speci men Type: BLOOD SPECIMENOrdering Facility: [facility] Address: [address] [place] [address] Performed By: #### 2 4323-8, , 2776-02 ####[facility] LABIA [id number] [address] [place] ESTIMATED GLOMERULAR FILTRATION RATE 89 mL/min/1.73m??? Normal >=60 [facility] Comment on above: Order Comment: Speci men Type: BLOOD SPECIMENOrdering Facility: [facility] Address: [address] [place] [address] Result Comment: Mariaelena mated Glomerular Filtration Rate (eGFR) is calculated using the 2020 CKD-EPI creatinine equation. This equation utilizes serum creatinine, sex, and age as parameters. The creatinine assay has traceable calibration to isotope dilution-mass spectrometry. Refer to KDIGO guidelines for clinical interpretation. In patients with unstable renal function, e.g. those with acute kidney injury, the eGFR may not accurately reflect actual GFR. Performed By: #### 2 4323-8, , 2776-02 ####[facility] LABCLIA [id number] [place] [address] [place] Glucose [Mass/Vol] 114 mg/dL High 74-99 [facility] Comment on above: Order Comment: Speci men Type: BLOOD SPECIMENOrdering Facility: [facility] Address: [address] [place] [address] Result Comment: The [place] Diabetes Association (ADA) provides guidance for cutoff values for fasting glucose and random glucose. The ADA defines fasting as no caloric intake for at least 8 hours. Fasting plasma glucose results between 100 to 125 mg/dL indicate increased risk for diabetes (prediabetes). Fasting plasma glucose results greater than or equal to 126 mg/dL meet the criteria for diagnosis of diabetes. In the absence of unequivocal hyperglycemia, results should be confirmed by repeat testing. In a patient with classic symptoms of hyperglycemia or hyperglycemic crisis, random plasma glucose results greater than or equal to 200 mg/dL meet the criteria for diagnosis of diabetes. Reference: Standards of Medical Care in Diabetes 2016, [place] [employer]. Diabetes Care. 2016.39(Suppl 1). Performed By: #### 2 4323-8, , 2776-02 ####[facility] LABCLIA [id number] [place] [address] [place] Potassium [Moles/Vol] 4.2 mmol/L Normal 3.7-5.1 [facility] Comment on above: Order Comment: Speci men Type: BLOOD SPECIMENOrdering Facility: [facility] Address: [address] [place], [place] [address] Performed By: #### 2 4323-8, , 2776-02 ####[facility] LABCLIA [id number] [address] [place] [id number] [place] Protein [Mass/Vol] 6.1 g/dL Low 6.3-8.0 [facility] Comment on above: Order Comment: Speci men Type: BLOOD SPECIMENOrdering Facility: [facility] Address: [address] [place] [address] Performed By: #### 2 4323-8, , 2776- ####[facility] LABCLIA [id number] [place] [address] [place] Sodium [Moles/Vol] 139 mmol/L Normal 136-144 [facility] Comment on above: Order Comment: Speci men Type: BLOOD SPECIMENOrdering Facility: [facility] Address: [address] [place] [address] Performed By: #### 2 4323-8, , 2776- ####[facility] [id number] [place] [address] [place] Urea nitrogen [Mass/Vol] 21 mg/dL Normal 9-24 [facility] Comment on above: Order Comment: Speci men Type: BLOOD SPECIMENOrdering Facility: [facility] Address: [address] [place] [address] Performed By: #### 2 4323-8, , 2776-02 ####[facility] [id number] [place] [address] [place] Magnesium SerPl-mCncon 08-31 Magnesium [Mass/Vol] 2.2 mg/dL Normal 1.7-2.3 [facility] Comment on above: Order Comment: Speci men Type: BLOOD SPECIMENOrdering Facility: [facility] Address: [address] [place] [address] Performed By: #### 2 4323-8, , 2776-02 ####[facility] [id number] [address] [place] [id number] [place] PT panel Coag (PPP)on 2022 INR Coag (PPP) [Relative time] 1.0 {INR} Normal 0.9-1.3 [facility] Comment on above: Order Comment: Speci men Type: BLOOD SPECIMENOrdering Facility: [facility] Address: [address] [place] [address] Result Comment: Mago min K Antagonist (VKA) Therapeutic Range: INR 2 to 3 (Target INR of 2.5) Note: For patients treated with VKA drugs, such as warfarin, the [place] [employer] 2012 Guideline recommends a therapeutic INR range of 2 to 3 (target INR of 2.5). This recommendation includes high-risk patients with antiphospholipid syndrome with previous arterial or venous thromboembolism, current-generation mechanical or bioprosthetic aortic heart valve replacement. Note: Patients with mechanical aortic valve replacement and additional risk factors for thromboembolic events (atrial fibrillation, previous thromboembolism, LV dysfunction, hypercoagulable conditions) or an older generation mechanical AVR (i.e., ball in-Cage) or any mechanical MVR should have a INR therapeutic range of 2.5 to 3.5 (target INR of 3). David GH, et al. Chest 2012, 141:7S-47S Daniel RA, et al. [facility] 2017, 70: 252-289 Performed By: #### 3 4528-0, 25340-7 ####[facility] LABCLIA [id number] [place] [address] [place] PT Coag (PPP) [Time] 10.4 s Normal 9.7-13.0 [facility] Comment on above: Order Comment: Speci men Type: BLOOD SPECIMENOrdering Facility: [facility] Address: [address] [place] [address] Performed By: #### 3 4528-0, 24620-7 ####[facility] LABCLIA [id number] [place] [address] [place] Phosphate SerPl-mCncon 08-31 Phosphate [Mass/Vol] 3.6 mg/dL Normal 2.7-4.8 [facility] Comment on above: Order Comment: Janiei men Type: BLOOD SPECIMENOrdering Facility: [facility] Address: [address] [place] [address] Performed By: #### 2 4323-8, 13687-9, 2777-1 ####[facility] LABCLIA [id number] [place] [address] [facility] THERAPY NTon 08-31-2022 THERAPY NT HNO ID: [id number] Author: Jenna Duggan, PT Service: Physical Therapy Author Type: Physical Therapist Type: Therapy (PT/OT/Speech/Resp) Filed: 08/31/2022 10:55 AM Note Text: Physical Therapy Treatment SERVICE DATE: 08/31/2022 SERVICE TIME: 0940 to 1003 ROOM: [address] [place] [address] Recommended Discharge Disposition: Home Anticipated Discharge Needs: Physical Assist at Home Physical Assist at Home for: Cleaning, Laundry, Shopping, Transportation Supervision at Home due to: Other: See Comment (recent STEMI) Recommended Discharge Equipment: No equipment needs anticipated PT 6 Clicks Score: 22 Precautions/Activity Restrictions: Fall Risk, Lines/Tubes/Drains Current Hospital Course: 77 y/o male with PMHx of HTN, HLD, DM, recent STEMI (08/20/2022), transferred from [facility] for gross hematuria. Currently with 18Fr 3-way catheter on CBI. 08/28/22: s/p cystoscopy, clot evacuation, cystolitholapaxy, TURP. Admitted to SICU postoperatively due to pressor requirements and risk of hyponatremia due to length of TURP. 22Fr [address] hernandez placed introp, on traction and CBI. Reason for Hospital Admission: Pt 77y/o male transferred from [facility] for gross hematuria secondary to recent STEMI on 08/20/22 Relevant Past Medical History: STEMI on 08/20/22 (s/p JUHI),HTN, HLD, DM, nephrolithiasis Response to Therapy Interventions: Good Participation in Activities, On-Track to Achieve Discharge Goals Physical Therapy Problem List: Education Deficit, Pain, Safety Deficits, Impaired Self Care, Decreased Activity Tolerance, Decreased Range Of Motion, Decreased Strength, Functional Mobility Impairment, Sensory Deficit, Balance Impaired Treatment Interventions: Education, Self Care / Home Management, Energy Conservation Training, Joint Mobility, Strengthening, Functional Mobility Training, Balance Training, Neuromuscular Re-education, Edema Management, Pain Management Plan for Next Visit: Gait Training, Stair Training Home Environment Patient Lives With: Spouse Assistance Available: 24-Hour Entry To Home: Stairs Number Of Stairs Into Home: 1 Number Of Stairs To Bed/Bath: 10 (Shower available on first floor with no stairs but preferred shower in basement, bedroom 1st floor) Tub/Shower Type: Walk-in Laundry: Basement-Spouse completes Equipment Owned: Cane, Walker- Standard Prior Functional Level: Within Functional Limits Prior Functional Level Comments: Pt previously indep in all I/ADLs, self-care, and transportation. Pt previously active, enjoys mowing lawns for friends and maintaining multiple acres of family land. Baseline Cognition: Oriented to self, Oriented to place, Oriented to time, Oriented to situation Patient Report: Agreeable to PT. CURRENT FUNCTIONAL STATUS: Most recent performance Current Functional Mobility Assist Level Additional Information Rolling Supine to Sit Stand By Assistance Sit to Supine Scooting Contact Guard Assistance Sit to Stand Contact Guard Assistance Stand to Sit Contact Guard Assistance Bed to Chair Contact Guard Assistance Bed To Chair Transfer Type: Stepping Bed To Chair Transfer Equipment: Gait Belt Toilet/Commode Gait Stand By Assistance Gait Device: IV Pole Gait Distance (feet): 300 ft Stairs Contact Guard Assistance Stairs Device: Hand Held Assist Number of Stairs: 1 (x 6 trials) Curb Step Car Transfer Blank hernandez indicate activity not attempted General Deviations/Observations: Diana decreased, Flexed trunk posture -M: 8: Walk 250 feet or more Learning/Educational Needs: Discharge Plan, Disease Process, Equipment, Functional Activities/Mobility, Pain Management, Plan of Care, Changes in Plan of Care, Precautions, PT In-Hospital Exercise Program, Safety, Respiratory Function, Rehabilitation Techniques and Procedures, Family Education/Training Goals for Plan of Care: Patient/Caregiver Goals: Walk, Go Home Goals: Patient will demonstrate progress with functional mobility to allow safe discharge to home with available support and/or physical assistance. Ambulate Up and Down Steps with: Modified Independent Number of Steps: 10 Device: Rail Progress Toward Goals: Progressing as expected Rehab Potential: Good Patient will be discontinued from Physical Therapy when no further skilled needs are identified in this setting. PLAN: PT Frequency: 2 Times Per Week Plan of Care developed with: Patient TREATMENT INTERVENTIONS: Therapy Diagnosis: Reduced mobility-other Interventions Provided: Gait Training (16442) Gait Training (04017) Treatment Minutes: 23 $ Gait Training (20419) Billed Units: 2 units Training AND Education Provided in: Benefits of In-Hospital Mobility, Bed Mobility, Energy Conservation, Equipment, Exercise Program, Expected Functional Level, Gait Pattern, Reduction of Deviations, Patient Exercise/Therapy Program Support Needs, Positioning, Precautions/Restrictions, Role of Physical Therapy, Standing Balance, (more content not included)... Normal [facility] aPTT PPPon 08-31-2022 aPTT Coag (PPP) [Time] 25.2 s Normal 23.0-32.4 [facility] Comment on above: Order Comment: Speci men Type: BLOOD SPECIMENOrdering Facility: [facility] Address: [address] [place] [address] Performed By: #### 3 4528-0, 17071-8 ####[facility] LABIA [id number] [place] [address] [place] CBC panel Auto (Bld)on 08-30 Erythrocyte distribution width (RBC) [Ratio] 12.7 % Normal 11.5-15.0 [facility] Comment on above: Order Comment: Speci men Type: BLOOD SPECIMENOrdering Facility: [facility] Address: [address] [place] [address] Performed By: #### 5 8410-2 ####[facility] LABIA [id number] [place] [address] [place] Hematocrit (Bld) [Volume fraction] 30.5 % Low 39.0-51.0 [facility] Comment on above: Order Comment: Speci men Type: BLOOD SPECIMENOrdering Facility: [facility] Address: [address] [place] [address] Performed By: #### 5 8410-2 ####[facility] LABIA [id number] [place] [address] [place] Hemoglobin (Bld) [Mass/Vol] 10.4 g/dL Low 13.0-17.0 [facility] Comment on above: Order Comment: Speci men Type: BLOOD SPECIMENOrdering Facility: [facility] Address: [address] [place] [address] Performed By: #### 5 8410-2 ####[facility] LABIA [id number] [address] [place] [facility] MCH (RBC) [Entitic mass] 31.7 pg Normal 26.0-34.0 [facility] Comment on above: Order Comment: Speci men Type: BLOOD SPECIMENOrdering Facility: [facility] Address: [address] [place] [address] Performed By: #### 5 8410-2 ####[facility] LABCLIA [id number] [address] [place] [facility] MCHC (RBC) [Mass/Vol] 34.1 g/dL Normal 30.5-36.0 [facility] Comment on above: Order Comment: Speci men Type: BLOOD SPECIMENOrdering Facility: [facility] Address: [address] [place] [address] Performed By: #### 5 8410-2 ####[facility] LABCLIA [id number] [address] [place] MCV (RBC) [Entitic vol] 93.0 fL Normal 80.0-100.0 [facility] Comment on above: Order Comment: Speci men Type: BLOOD SPECIMENOrdering Facility: [facility] Address: [address] [place] [address] Performed By: #### 5 8410-2 ####[facility] LABCLIA [id number] [place] [address] [place] Nucleated RBC (Bld) [#/Vol] 10*3/uL Normal <0.01 [facility] Comment on above: Order Comment: Speci men Type: BLOOD SPECIMENOrdering Facility: [facility] Address: [address] [place], [place] [address] Performed By: #### 5 8410-2 ####[facility] LABCLIA [id number] [place] [address] [place] Platelet mean volume (Bld) [Entitic vol] 11.6 fL Normal 9.0-12.7 [facility] Comment on above: Order Comment: Speci men Type: BLOOD SPECIMENOrdering Facility: [facility] Address: [address] [place], [place] [address] Performed By: #### 5 8410-2 ####[facility] LABCLIA [id number] [place] [address] [place] Platelets (Bld) [#/Vol] 192 10*3/uL Normal 150-400 [facility] Comment on above: Order Comment: Speci men Type: BLOOD SPECIMENOrdering Facility: [facility] Address: [address] [place], [place] [address] Performed By: #### 5 8410-2 ####[facility] LABIA [id number] [place] [address] [place] RBC (Bld) [#/Vol] 3.28 10*6/uL Low 4.20-6.00 [facility] Comment on above: Order Comment: Speci men Type: BLOOD SPECIMENOrdering Facility: [facility] Address: [address] [place], [place] [address] Performed By: #### 5 8410-2 ####[facility] LABIA [id number] [place] [address] [place] WBC (Bld) [#/Vol] 15.06 10*3/uL High 3.70-11.00 [facility] Comment on above: Order Comment: Speci men Type: BLOOD SPECIMENOrdering Facility: [facility] Address: [address] [place], [place] [address] Performed By: #### 5 8410-2 ####[facility] LABIA [id number] [place] [address] [place] Comprehensive metabolic 2000 panelon 08-30-2022 Albumin [Mass/Vol] 3.4 g/dL Low 3.9-4.9 [facility] Comment on above: Order Comment: Speci men Type: BLOOD SPECIMENOrdering Facility: [facility] Address: [address] Performed By: #### 2 4323-8, 95268-6, 2776-02 ####[facility] LABCLIA [id number] [place] [address] [place] ALP [Catalytic activity/Vol] 105 U/L Normal 38-113 [facility] Comment on above: Order Comment: Speci men Type: BLOOD SPECIMENOrdering Facility: [facility] Address: [address] Performed By: #### 2 4323-8, , 2776-02 ####[facility] LABCLIA [id number] [place] [address] [place] ALT [Catalytic activity/Vol] 18 U/L Normal 10-54 [facility] Comment on above: Order Comment: Speci men Type: BLOOD SPECIMENOrdering Facility: [facility] Address: [address] Performed By: #### 2 4323-8, , 2776-02 ####[facility] LABIA [id number] [place] [address] [place] Anion gap [Moles/Vol] 11 mmol/L Normal 9-18 [facility] Comment on above: Order Comment: Speci men Type: BLOOD SPECIMENOrdering Facility: [facility] Address: [address] Performed By: #### 2 4323-8, 40494-9, 2776-02 ####[facility] LABCLIA [id number] [place] [address] [place] AST [Catalytic activity/Vol] 16 U/L Normal 14-40 [facility] Comment on above: Order Comment: Speci men Type: BLOOD SPECIMENOrdering Facility: [facility] Address: [address] Performed By: #### 2 4323-8, , 2776-02 ####[facility] LABCLIA [id number] [place] [address] [place] Bilirubin [Mass/Vol] 0.3 mg/dL Normal 0.2-1.3 [facility] Comment on above: Order Comment: Speci men Type: BLOOD SPECIMENOrdering Facility: [facility] Address: [address] Performed By: #### 2 4323-8, , 2776-02 ####[facility] LABCLIA [id number] [place] [address] [place] Calcium [Mass/Vol] 8.9 mg/dL Normal 8.5-10.2 [facility] Comment on above: Order Comment: Speci men Type: BLOOD SPECIMENOrdering Facility: [facility] Address: [address] [place], [place] [address] Performed By: #### 2 4323-8, , 2776-02 ####[facility] LABCLIA [id number] [place] [address] [place] Chloride [Moles/Vol] 103 mmol/L Normal 97-105 [facility] Comment on above: Order Comment: Speci men Type: BLOOD SPECIMENOrdering Facility: [facility] Address: [address] [place] [address] Performed By: #### 2 4323-8, , 2776-02 ####[facility] LABCLIA [id number] [place] [address] [place] CO2 [Moles/Vol] 24 mmol/L Normal 22-30 [facility] Comment on above: Order Comment: Speci men Type: BLOOD SPECIMENOrdering Facility: [facility] Address: [address] [place], [place] [address] Performed By: #### 2 4323-8, , 2776-02 ####[facility] LABCLIA [id number] [place] [address] [place] Creatinine [Mass/Vol] 0.77 mg/dL Normal 0.73-1.22 [facility] Comment on above: Order Comment: Portia tay Type: BLOOD SPECIMENOrdering Facility: [facility] Address: [address] [address] Performed By: #### 2 4323-8, , 2776-02 ####[facility] LABIA [id number] [place] [address] [place] ESTIMATED GLOMERULAR FILTRATION RATE 92 mL/min/1.73m??? Normal >=60 [facility] Comment on above: Order Comment: Portia tay Type: BLOOD SPECIMENOrdering Facility: [facility] Address: [address] [address] Result Comment: Mariaelena mated Glomerular Filtration Rate (eGFR) is calculated using the 2020 CKD-EPI creatinine equation. This equation utilizes serum creatinine, sex, and age as parameters. The creatinine assay has traceable calibration to isotope dilution-mass spectrometry. Refer to KDIGO guidelines for clinical interpretation. In patients with unstable renal function, e.g. those with acute kidney injury, the eGFR may not accurately reflect actual GFR. Performed By: #### 2 4323-8, , 2776-02 ####[facility] LABIA [id number] [place] [id number] [place] Glucose [Mass/Vol] 124 mg/dL High 74-99 [facility] Comment on above: Order Comment: Speci men Type: BLOOD SPECIMENOrdering Facility: [facility] Address: [address] [address] Result Comment: The [place] [employer] (ADA) provides guidance for cutoff values for fasting glucose and random glucose. The ADA defines fasting as no caloric intake for at least 8 hours. Fasting plasma glucose results between 100 to 125 mg/dL indicate increased risk for diabetes (prediabetes). Fasting plasma glucose results greater than or equal to 126 mg/dL meet the criteria for diagnosis of diabetes. In the absence of unequivocal hyperglycemia, results should be confirmed by repeat testing. In a patient with classic symptoms of hyperglycemia or hyperglycemic crisis, random plasma glucose results greater than or equal to 200 mg/dL meet the criteria for diagnosis of diabetes. Reference: Standards of Medical Care in Diabetes 2016, [place] [employer]. Diabetes Care. 2016.39(Suppl 1). Performed By: #### 2 4323-8, , 2776-02 ####[facility] LABCLIA [id number] [place] [address] [place] Potassium [Moles/Vol] 3.9 mmol/L Normal 3.7-5.1 [facility] Comment on above: Order Comment: Speci men Type: BLOOD SPECIMENOrdering Facility: [facility] Address: [address] [place] [address] Performed By: #### 2 4328, , 2776-02 ####[facility] LABCLIA [id number] [place] [address] [place] Protein [Mass/Vol] 6.2 g/dL Low 6.3-8.0 [facility] Comment on above: Order Comment: Speci men Type: BLOOD SPECIMENOrdering Facility: [facility] Address: [address] [place] [address] Performed By: #### 2 4323-8, , 2776-02 ####[facility] LABIA [id number] [place] [address] [place] Sodium [Moles/Vol] 138 mmol/L Normal 136-144 [facility] Comment on above: Order Comment: Speci men Type: BLOOD SPECIMENOrdering Facility: [facility] Address: [address] Performed By: #### 2 4323-8, , 2776-02 ####[facility] LABCLIA [id number] [place] [address] [place] Urea nitrogen [Mass/Vol] 22 mg/dL Normal 9-24 [facility] Comment on above: Order Comment: Portia tay Type: BLOOD SPECIMENOrdering Facility: [facility] Address: [address] [place] [address] Performed By: #### 2 4323-8, 79713-1, 2777-1 ####[facility] LABCLIA [id number] [place] [address] [place] Magnesium SerPl-mCncon 08-30 Magnesium [Mass/Vol] 2.2 mg/dL Normal 1.7-2.3 [facility] Comment on above: Order Comment: Portia tay Type: BLOOD SPECIMENOrdering Facility: [facility] Address: [address] [place] [address] Performed By: #### 2 4323-8, 97628-7, 2777-1 ####[facility] LABCLIA [id number] [place] [address] [place] PT panel Coag (PPP)on 2022 INR Coag (PPP) [Relative time] 1.1 {INR} Normal 0.9-1.3 [facility] Comment on above: Order Comment: Portia tay Type: BLOOD SPECIMENOrdering Facility: [facility] Address: [address] [place] [address] Result Comment: Mago min K Antagonist (VKA) Therapeutic Range: INR 2 to 3 (Target INR of 2.5) Note: For patients treated with VKA drugs, such as warfarin, the [place] [employer] 2012 Guideline recommends a therapeutic INR range of 2 to 3 (target INR of 2.5). This recommendation includes high-risk patients with antiphospholipid syndrome with previous arterial or venous thromboembolism, current-generation mechanical or bioprosthetic aortic heart valve replacement. Note: Patients with mechanical aortic valve replacement and additional risk factors for thromboembolic events (atrial fibrillation, previous thromboembolism, LV dysfunction, hypercoagulable conditions) or an older generation mechanical AVR (i.e., ball in-Cage) or any mechanical MVR should have a INR therapeutic range of 2.5 to 3.5 (target INR of 3). Lupett GH, et al. Chest 2012, 141:7S-47S Daniel RA, et al. [facility] 2017, 70: 252-289 Performed By: #### 3 4528-0, 51122-7 ####[facility] LABIA [id number] [address] OF [facility] PT Coag (PPP) [Time] 10.9 s Normal 9.7-13.0 [facility] Comment on above: Order Comment: Speci men Type: BLOOD SPECIMENOrdering Facility: [facility] Address: [address] [place] [address] Performed By: #### 3 4528-0, 19460-0 ####[facility] [id number] [address] Phosphate SerPl-mCncon 08-30 Phosphate [Mass/Vol] 3.2 mg/dL Normal 2.7-4.8 [facility] Comment on above: Order Comment: Specherbie tay Type: BLOOD SPECIMENOrdering Facility: [facility] Address: [address] [place] [address] Performed By: #### 2 4323-8, 64942-7, 2777-1 ####[facility] [id number] [place] [id number] [facility] THERAPY NTon 08-30-2022 THERAPY NT HNO ID: [id number] Author: Jenna Duggan, PT Service: Physical Therapy Author Type: Physical Therapist Type: Therapy (PT/OT/Speech/Resp) Filed: 08/30/2022 3:12 PM Note Text: Physical Therapy Treatment SERVICE DATE: 08/30/2022 SERVICE TIME: 1337 to 1400 ROOM: [place] [address] Recommended Discharge Disposition: Home Anticipated Discharge Needs: Physical Assist at Home Physical Assist at Home for: Cleaning, Laundry, Shopping, Transportation Supervision at Home due to: Other: See Comment (recent STEMI) Recommended Discharge Equipment: No equipment needs anticipated PT 6 Clicks Score: 22 Precautions/Activity Restrictions: Fall Risk, Lines/Tubes/Drains Current Hospital Course: 77 y/o male with PMHx of HTN, HLD, DM, recent STEMI (08/20/2022), transferred from [facility] for gross hematuria. Currently with 18Fr 3-way catheter on CBI. 08/28/22: s/p cystoscopy, clot evacuation, cystolitholapaxy, TURP. Admitted to SICU postoperatively due to pressor requirements and risk of hyponatremia due to length of TURP. 22Fr [address] hernandez placed introp, on traction and CBI. Reason for Hospital Admission: Pt 77y/o male transferred from [facility] for gross hematuria secondary to recent STEMI on 08/20/22 Relevant Past Medical History: STEMI on 08/20/22 (s/p JUHI),HTN, HLD, DM, nephrolithiasis Response to Therapy Interventions: Good Participation in Activities, On-Track to Achieve Discharge Goals Physical Therapy Problem List: Education Deficit, Pain, Safety Deficits, Impaired Self Care, Decreased Activity Tolerance, Decreased Range Of Motion, Decreased Strength, Functional Mobility Impairment, Sensory Deficit, Balance Impaired Treatment Interventions: Education, Self Care / Home Management, Energy Conservation Training, Joint Mobility, Strengthening, Functional Mobility Training, Balance Training, Neuromuscular Re-education, Edema Management, Pain Management Home Environment Patient Lives With: Spouse Assistance Available: 24-Hour Entry To Home: Stairs Number Of Stairs Into Home: 1 Number Of Stairs To Bed/Bath: 10 (Shower available on first floor with no stairs but preferred shower in basement, bedroom 1st floor) Tub/Shower Type: Walk-in Laundry: Basement-Spouse completes Equipment Owned: Cane, Walker- Standard Prior Functional Level: Within Functional Limits Prior Functional Level Comments: Pt previously indep in all I/ADLs, self-care, and transportation. Pt previously active, enjoys mowing lawns for friends and maintaining multiple acres of family land. Baseline Cognition: Oriented to self, Oriented to place, Oriented to time, Oriented to situation CURRENT FUNCTIONAL STATUS: Most recent performance Current Functional Mobility Assist Level Additional Information Rolling Supine to Sit Stand By Assistance Sit to Supine Scooting Contact Guard Assistance Sit to Stand Contact Guard Assistance Stand to Sit Contact Guard Assistance Bed to Chair Contact Guard Assistance Bed To Chair Transfer Type: Stepping Bed To Chair Transfer Equipment: Gait Belt Toilet/Commode Gait Stand By Assistance Gait Device: IV Pole Gait Distance (feet): 300 ft Stairs Curb Step Car Transfer Blank hernandez indicate activity not attempted General Deviations/Observations: Diana decreased, Flexed trunk posture -HLM: 8: Walk 250 feet or more Learning/Educational Needs: Discharge Plan, Disease Process, Equipment, Functional Activities/Mobility, Pain Management, Plan of Care, Changes in Plan of Care, Precautions, PT In-Hospital Exercise Program, Safety, Respiratory Function, Rehabilitation Techniques and Procedures, Family Education/Training Goals for Plan of Care: Patient/Caregiver Goals: Walk, Go Home Goals: Patient will demonstrate progress with functional mobility to allow safe discharge to home with available support and/or physical assistance. Ambulate Up and Down Steps with: Modified Independent Number of Steps: 10 Device: Rail Progress Toward Goals: Progressing as expected Rehab Potential: Good Patient will be discontinued from Physical Therapy when no further skilled needs are identified in this setting. PLAN: PT Frequency: 2 Times Per Week Plan of Care developed with: Patient TREATMENT INTERVENTIONS: Therapy Diagnosis: Reduced mobility-other Interventions Provided: Therapeutic Activity (52687), Gait Training (48981) Therapeutic Activity (40476) Treatment Minutes: 8 $ Therapeutic Activity (13465) Billed Units: 1 unit Gait Training (53777) Treatment Minutes: 15 $ Gait Training (51609) Billed Units: 1 unit Training AND Education Provided in: Benefits of In-Hospital Mobility, Bed Mobility, Energy Conservation, Equipment, Exercise Program, Expected Functional Level, Gait Pattern, Reduction of Deviations, Patient Exercise/Therapy Program Support Needs, Positioning, Precautions/Restrictions, Role of Physical Therapy, Standing Balance, Treatment Protocol, Transfers The Followin (more content not included)... Normal [facility] TYPE + SCREENon 08-30-2022 ABO O Normal [facility] Comment on above: Order Comment: Speci men Type: BLOOD SPECIMENOrdering Facility: [facility] Address: [address] [place], [place] [address] Performed By: #### T SCR ####[facility] B[facility] BANKCLIA [id number] [address] [place] HISTORICAL AB SCR STATUS Negative Normal [facility] Comment on above: Order Comment: Speci men Type: BLOOD SPECIMENOrdering Facility: [facility] Address: [address] [place] [address] Performed By: #### T SCR ####[facility] BLOOD BANKCLIA [id number] [address] Rh Nom (Bld) Positive Normal [facility] Comment on above: Order Comment: Speci men Type: BLOOD SPECIMENOrdering Facility: [facility] Address: [address] [place] [address] Performed By: #### T SCR ####[facility] BLOOD BANKIA [id number] [address] TYPE AND SCREEN EXPIRATION 09/02/2022 23:59 Normal [facility] Comment on above: Order Comment: Speci men Type: BLOOD SPECIMENOrdering Facility: [facility] Address: [address] [place] [address] Performed By: #### T SCR ####[facility] BLOOD BANKIA [id number] [address] aPTT PPPon 08-30-2022 aPTT Coag (PPP) [Time] 26.5 s Normal 23.0-32.[address] [facility] Comment on above: Order Comment: Speci men Type: BLOOD SPECIMENOrdering Facility: [facility] Address: [address] [place] [address] Performed By: #### 3 4528-0, 69794-6 ####[facility] LABCLIA [id number] [address] C Urineon 08-29-2022 Bacteria identified Cx Nom (U) Microbiology PROCEDURE: Urine Culture [R1] SOURCE: U Cath BODY SITE: COLLECTED DATE/TIME: 08/26/2022 18:58 EDT RECEIVED DATE/TIME: 08/26/2022 20:47 EDT START DATE/TIME: 08/26/2022 20:47 EDT FREE TEXT SOURCE: cath SYSTEM, SYSTEM SYSTEM, SYSTEM FINAL REPORTS Final Report [] Verified Date/Time: 08/29/2022 11:29 EDT 600 cfu/ml Staphylococcus species coagulase negative Sandy not indicative of a Cath specimen Performing Locations R1: This test was performed at: [facility], [address] [place] [address], [address] , , Normal [facility] Comment on above: Performed By: #### 2 323159, [id number], 1374679, [id number], [id number] #### [facility] [address] [place] [address] CBC panel Auto (Bld)on 08-29 Erythrocyte distribution width (RBC) [Ratio] 12.5 % Normal 11.5-15.0 [facility] Comment on above: Order Comment: Speci men Type: BLOOD SPECIMENOrdering Facility: [facility] Address: [address] [place] [address] Performed By: #### 5 8410-2 ####[facility] LABCLIA [id number] [place] [address] [place] Hematocrit (Bld) [Volume fraction] 30.7 % Low 39.0-51.0 [facility] Comment on above: Order Comment: Speci men Type: BLOOD SPECIMENOrdering Facility: [facility] Address: [address] [place] [address] Performed By: #### 5 8410-2 ####[facility] LABCLIA [id number] [place] [address] [place] Hemoglobin (Bld) [Mass/Vol] 10.6 g/dL Low 13.0-17.0 [facility] Comment on above: Order Comment: Speci men Type: BLOOD SPECIMENOrdering Facility: [facility] Address: [address] [place] [address] Performed By: #### 5 8410-2 ####[facility] [id number] [place] [address] [place] MCH (RBC) [Entitic mass] 32.0 pg Normal 26.0-34.0 [facility] Comment on above: Order Comment: Speci men Type: BLOOD SPECIMENOrdering Facility: [facility] Address: [address] [place] [address] Performed By: #### 5 8410-2 ####[facility] [id number] [address] STATES [facility] MCHC (RBC) [Mass/Vol] 34.5 g/dL Normal 30.5-36.0 [facility] Comment on above: Order Comment: Speci men Type: BLOOD SPECIMENOrdering Facility: [facility] Address: [address] [place] [address] Performed By: #### 5 8410-2 ####[facility] [id number] [address] STATES OF [facility] MCV (RBC) [Entitic vol] 92.7 fL Normal 80.0-100.0 [facility] Comment on above: Order Comment: Speci men Type: BLOOD SPECIMENOrdering Facility: [facility] Address: [address] [place], [place] [address] Performed By: #### 5 8410-2 ####[facility] [id number] [address] [place] Nucleated RBC (Bld) [#/Vol] 10*3/uL Normal <0.01 [facility] Comment on above: Order Comment: Speci men Type: BLOOD SPECIMENOrdering Facility: [facility] Address: [address] [place], [place] [address] Performed By: #### 5 8410-2 ####[facility] [id number] [address] [place] Platelet mean volume (Bld) [Entitic vol] 11.6 fL Normal 9.0-12.7 [facility] Comment on above: Order Comment: Speci men Type: BLOOD SPECIMENOrdering Facility: [facility] Address: [address] [place], [place] [address] Performed By: #### 5 8410-2 ####[facility] LABCLIA [id number] [place] [address] [place] Platelets (Bld) [#/Vol] 159 10*3/uL Normal 150-400 [facility] Comment on above: Order Comment: Speci men Type: BLOOD SPECIMENOrdering Facility: [facility] Address: [address] [place], [place] [address] Performed By: #### 5 8410-2 ####[facility] LABCLIA [id number] [place] [address] [place] RBC (Bld) [#/Vol] 3.31 10*6/uL Low 4.20-6.00 [facility] Comment on above: Order Comment: Speci men Type: BLOOD SPECIMENOrdering Facility: [facility] Address: [address] [place], [place] [address] Performed By: #### 5 8410-2 ####[facility] LABCLIA [id number] [place] [address] [place] WBC (Bld) [#/Vol] 13.57 10*3/uL High 3.70-11.00 [facility] Comment on above: Order Comment: Speci men Type: BLOOD SPECIMENOrdering Facility: [facility] Address: [address] [place], [place] [address] Performed By: #### 5 8410-2 ####[facility] LABCLIA [id number] [place] [address] [place] Erythrocyte distribution width (RBC) [Ratio] 12.5 % Normal 11.5-15.0 [facility] Comment on above: Order Comment: Speci men Type: BLOOD SPECIMENOrdering Facility: [facility] Address: [address] Performed By: #### 5 8410-2 ####[facility] LABIA [id number] [address] [place] Hematocrit (Bld) [Volume fraction] 25.7 % Low 39.0-51.0 [facility] Comment on above: Order Comment: Speci men Type: BLOOD SPECIMENOrdering Facility: [facility] Address: [address] Performed By: #### 5 8410-2 ####[facility] LABIA [id number] [place] [address] [place] Hemoglobin (Bld) [Mass/Vol] 9.1 g/dL Low 13.0-17.0 [facility] Comment on above: Order Comment: Speci men Type: BLOOD SPECIMENOrdering Facility: [facility] Address: [address] Performed By: #### 5 8410-2 ####[facility] LABIA [id number] [place] [address] [place] MCH (RBC) [Entitic mass] 32.4 pg Normal 26.0-34.0 [facility] Comment on above: Order Comment: Speci men Type: BLOOD SPECIMENOrdering Facility: [facility] Address: [address] Performed By: #### 5 8410-2 ####[facility] LABIA [id number] [place] [address] [place] MCHC (RBC) [Mass/Vol] 35.4 g/dL Normal 30.5-36.0 [facility] Comment on above: Order Comment: Speci men Type: BLOOD SPECIMENOrdering Facility: [facility] Address: [address] Performed By: #### 5 8410-2 ####[facility] LABIA [id number] [place] [address] [place] MCV (RBC) [Entitic vol] 91.5 fL Normal 80.0-100.0 [facility] Comment on above: Order Comment: Speci men Type: BLOOD SPECIMENOrdering Facility: [facility] Address: [address] [place] [address] Performed By: #### 5 8410-2 ####[facility] LABIA [id number] [place] [address] [place] Nucleated RBC (Bld) [#/Vol] 10*3/uL Normal <0.01 [facility] Comment on above: Order Comment: Speci men Type: BLOOD SPECIMENOrdering Facility: [facility] Address: [address] [place] [address] Performed By: #### 5 8410-2 ####[facility] [id number] [address] STATES OF [facility] Platelet mean volume (Bld) [Entitic vol] 11.1 fL Normal 9.0-12.7 [facility] Comment on above: Order Comment: Speci men Type: BLOOD SPECIMENOrdering Facility: [facility] Address: [address] [place] [address] Performed By: #### 5 8410-2 ####[facility] LABIA [id number] [address] OF [facility] Platelets (Bld) [#/Vol] 138 10*3/uL Low 150-400 [facility] Comment on above: Order Comment: Speci men Type: BLOOD SPECIMENOrdering Facility: [facility] Address: [address] [place] [address] Result Comment: No c lot detected.Results checked and verified. Performed By: #### 5 8410-2 ####[facility] LABIA [id number] [place] [address] [place] RBC (Bld) [#/Vol] 2.81 10*6/uL Low 4.20-6.00 [facility] Comment on above: Order Comment: Speci men Type: BLOOD SPECIMENOrdering Facility: [facility] Address: [address] [place] [address] Performed By: #### 5 8410-2 ####[facility] LABCLIA [id number] [address] STATES OF [facility] WBC (Bld) [#/Vol] 11.86 10*3/uL High 3.70-11.00 [facility] Comment on above: Order Comment: Speci men Type: BLOOD SPECIMENOrdering Facility: [facility] Address: [address] [place] [address] Performed By: #### 5 8410-2 ####[facility] LABCLIA [id number] [address] OF [facility] CNPNon 08-29-2022 CNPN Telephone (UROLMN) -- OLAF BRIONES ([id number]) 1945 M Date Time Provider Department 08/29/22 DAVID ANDREWS During your visit today, we recorded the following information about you: David Andrews MD 08/29/2022 7:12 PM Signed Spoke to to update her re Olaf's progress. Requested a catheter removal and TOV in ~ 1 week locally with Drs. Koroma or Cachorro. She will call tomorrow morning to set up the appointment. Allergies As of Date: 08/29/2022 Noted Allergy Reaction ALBUTEROL 11/12/2011 14 - Other: See Comments HYDROCHLOROTHIAZIDE 08/20/2022 2 - Rash Date Reviewed: 08/28/2022 Reviewed by: Shaq Jackson RN - Fully Assessed Reason for Visit: update family [Other] Prescriptions as of 08/29/2022 - allopurinol (ZYLOPRIM) 300 mg tablet Take 300 mg by mouth once daily. - amLODIPine (NORVASC) 5 mg tablet Take 5 mg by mouth once daily. - carvedilol (COREG) 6.25 mg tablet Take 6.25 mg by mouth twice daily with meals. - ticagrelor (BRILINTA) 90 mg tablet Take 90 mg by mouth twice daily. - aspirin, enteric coated (ASPIRIN, ENTERIC COATED) 81 mg EC tablet Take 81 mg by mouth once daily. - lisinopril 2.5 mg tablet Take 2.5 mg by mouth once daily. - diclofenac, EC, (VOLTAREN) 75 mg EC tablet Take 75 mg by mouth twice daily. - nitroglycerin sublingual (NITROQUICK) 0.4 mg SL tablet Dissolve 0.4 mg under the tongue every 5 minutes as needed for chest pain. Facility-Administered Medications as of 08/29/2022 - dextrose 15 gram/32 mL 15 g (TRUEPLUS) - glucagon 1 mg injection - dextrose 10% iv bolus - insulin lispro injection (rapid acting) (HumaLOG) - atorvastatin 80 mg tab(s) (LIPITOR) - carvedilol 6.25 mg tab(s) (COREG) - potassium chloride 20-40 mEq oral powder (KLOR-CON) - potassium chloride ER 20-40 mEq tab(s) (KLOR-CON) - potassium chloride iv piggyback 20 mEq/100 mL - potassium phosphate 15 mmol in NaCl 0.9% 250 mL - potassium phosphate 30 mmol in NaCl 0.9% 250 mL - potassium phosphate 45 mmol in NaCl 0.9% 500 mL - magnesium sulfate iv piggyback in sterile water 2 g 50 mL - phosphorus 500 mg tab(s) (K PHOS NEUTRAL) - sodium phosphate 15 mmol in D5W 250 mL - sodium phosphate 30 mmol in D5W 250 mL - sodium phosphate 45 mmol in NaCl 0.9% 250 mL - docusate sodium 100 mg cap(s) (COLACE) - NaCl 0.9% iv flush bag - acetaminophen 650 mg tab(s) (TYLENOL) - oxyCODONE IR 5 mg tab(s) (ROXICODONE) - ondansetron (PF) 4 mg injection (ZOFRAN) - melatonin 3 mg tab(s) - docusate sodium 100 mg cap(s) (COLACE) - allopurinol 300 mg tab(s) (ZYLOPRIM) - amLODIPine 5 mg tab(s) (NORVASC) - aspirin 81 mg chewable tab(s) - ticagrelor 90 mg tab(s) (BRILINTA) - sodium chloride 0.9 % (flush) 2-10 mL (BD POSIFLUSH) - perflutren lipid microspheres 1.1 mg/mL 1.3 mL injection (DEFINITY) Problem List As Of Date 08/29/2022 Noted Resolved Hematuria [R31.9] 08/27/2022 Coronary artery disease involving [place]*08/27/2022 Adverse reaction to antiplatelet agent [T45.7X5*08/27/2022 Myocardial infarction (HCC) [I21.9] 08/27/2022 Primary hypertension [I10] 08/27/2022 Type 2 diabetes mellitus without complication, *08/27/2022 Leukocytosis [D72.829] 08/27/2022 Malnutrition of mild degree (HCC) [E44.1] 08/29/2022 Encounter Status:Closed by DAVID ANDREWS on 08/29/22 [facility] CONSULT PROGon 08-29-2022 CONSULT PROG HNO ID: [id number] Author: Rodriguez Miller APRN.BIOINFORMATICS SOFTWARE ENGINEER Service: Cardiovascular Medicine Author Type: Nurse Practitioner Type: Consult Progress Note Filed: 08/29/2022 11:18 AM Note Text: [facility] CONSULT PROGRESS NOTE (Template ID [id number]) CONSULTING SERVICE: Cardiology: Consult Team PRIMARY SERVICE: Urology/SICU HOSPITAL DAY: #2 SUBJECTIVE INTERVAL HISTORY: Overnight, patient has remained HDS. Patient went to OR yesterday and underwent cystourethroscopy, clot evacuation, cystolitholapaxy, and TURP. Patient continues on CBI this morning. Patient denies any CP or SOB. Denies any dizziness. OBJECTIVE MEDICATIONS: Current Facility-Administered Medications Medication Dose Route Frequency docusate sodium 100 mg cap(s) (COLACE) 100 mg ORAL BID NaCl 0.9% iv flush bag 20 mL INTRAVENOUS PRN lactated ringers iv infusion 75 mL/hr INTRAVENOUS CONTINUOUS acetaminophen 650 mg tab(s) (TYLENOL) 650 mg ORAL q 4 H PRN oxyCODONE IR 5 mg tab(s) (ROXICODONE) 5 mg ORAL q 6 H PRN ondansetron (PF) 4 mg injection (ZOFRAN) 4 mg INTRAVENOUS q 6 H PRN melatonin 3 mg tab(s) 3 mg ORAL AT BEDTIME PRN docusate sodium 100 mg cap(s) (COLACE) 100 mg ORAL BID PRN allopurinol 300 mg tab(s) (ZYLOPRIM) 300 mg ORAL DAILY amLODIPine 5 mg tab(s) (NORVASC) 5 mg ORAL DAILY aspirin 81 mg chewable tab(s) 81 mg ORAL DAILY ticagrelor 90 mg tab(s) (BRILINTA) 90 mg ORAL BID piperacillin-tazobactam iv piggyback 3.375 g in dextrose (iso-osmotic) 50 mL (ZOSYN) 3.375 g INTRAVENOUS q 6 H sodium chloride 0.9 % (flush) 2-10 mL (BD POSIFLUSH) 2-10 mL INTRAVENOUS DIRECTED PRN And perflutren lipid microspheres 1.1 mg/mL 1.3 mL injection (DEFINITY) 1.3 mL INTRAVENOUS DIRECTED PRN dextrose 15 gram/32 mL 15 g (TRUEPLUS) 15 g ORAL PRN Or glucagon 1 mg injection 1 mg INTRAMUSCULAR PRN Or dextrose 10% iv bolus 12.5 g INTRAVENOUS PRN insulin lispro injection (rapid acting) (HumaLOG) SUBCUTANEOUS w MEALS AND HS atorvastatin 80 mg tab(s) (LIPITOR) 80 mg ORAL AT BEDTIME carvedilol 6.25 mg tab(s) (COREG) 6.25 mg ORAL BID w MEALS potassium chloride 20-40 mEq oral powder (KLOR-CON) 20-40 mEq ORAL/FEEDING TUBE PRN Or potassium chloride ER 20-40 mEq tab(s) (KLOR-CON) 20-40 mEq ORAL PRN Or potassium chloride iv piggyback 20 mEq/100 mL 20 mEq INTRAVENOUS PRN Or potassium phosphate 15 mmol in NaCl 0.9% 250 mL 15 mmol INTRAVENOUS PRN Or potassium phosphate 30 mmol in NaCl 0.9% 250 mL 30 mmol INTRAVENOUS PRN Or potassium phosphate 45 mmol in NaCl 0.9% 500 mL 45 mmol INTRAVENOUS PRN magnesium sulfate iv piggyback in sterile water 2 g 50 mL 2 g INTRAVENOUS PRN phosphorus 500 mg tab(s) (K PHOS NEUTRAL) 500 mg ORAL/FEEDING TUBE PRN Or sodium phosphate 15 mmol in D5W 250 mL 15 mmol INTRAVENOUS PRN Or sodium phosphate 30 mmol in D5W 250 mL 30 mmol INTRAVENOUS PRN Or sodium phosphate 45 mmol in NaCl 0.9% 250 mL 45 mmol INTRAVENOUS PRN PHYSICAL EXAM: 08/29/22 0500 08/29/22 0600 08/29/22 0700 08/29/22 0800 BP: 119/56 118/55 120/54 123/58 Pulse: 75 71 68 72 Resp: 16 15 17 16 Temp: 36.7 ?C (98.1 ?F) TempSrc: Oral SpO2: 97% 96% 96% 97% Weight: Height: General Appearance: Well developed, Well nourished and No distress Lungs: Clear Heart: Regular rate AND rhythm Abdomen: Soft Skin: Warm and Dry Extremities: No edema Neurologic/Psychiatric: Oriented to time, place AND person Intake/Output Summary (Last 24 hours) at 08/29/2022 0835 Last data filed at 08/29/2022 0700 Gross per 24 hour Intake 24027.5 ml Output 60045 ml Net 5853.5 ml TELEMETRY: SR IMAGING: TTE 08/28/2022 CONCLUSIONS: - Exam indication: Evaluation of ventricular function following ACS - The left ventricle is normal in size. Left ventricular systolic function is normal. EF = 55 ? 5% (2D biplane) Grade I left ventricular diastolic dysfunction. - The right ventricle is normal in size. Right ventricular systolic function is normal. - Estimated right ventricular systolic pressure is not reported due to an insufficient tricuspid regurgitation signal. Estimated right atrial pressure is 3 mmHg (although IVC not seen). - The patient has not had a prior CC echocardiographic exam for comparison. 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 Normal [facility] Comprehensive metabolic 2000 panelon 08-29-2022 Albumin [Mass/Vol] 4.2 g/dL Normal 3.9-4.9 [facility] Comment on above: Order Comment: Speci men Type: BLOOD SPECIMENOrdering Facility: [facility] Address: [address] [place] [address] Performed By: #### 2 4323-8 ####[facility] LABIA [id number] [place] [address] [place] ALP [Catalytic activity/Vol] 116 U/L High 38-113 [facility] Comment on above: Order Comment: Speci men Type: BLOOD SPECIMENOrdering Facility: [facility] Address: [address] [place] [address] Performed By: #### 2 4323-8 ####[facility] LABCLIA [id number] [place] [address] [place] ALT [Catalytic activity/Vol] 20 U/L Normal 10-54 [facility] Comment on above: Order Comment: Speci men Type: BLOOD SPECIMENOrdering Facility: [facility] Address: [address] [address] Performed By: #### 2 4323-8 ####[facility] LABCLIA [id number] [place] [address] [place] Anion gap [Moles/Vol] 13 mmol/L Normal 9-18 [facility] Comment on above: Order Comment: Speci men Type: BLOOD SPECIMENOrdering Facility: [facility] Address: [address] Performed By: #### 2 4323-8 ####[facility] LABCLIA [id number] [place] [address] [place] AST [Catalytic activity/Vol] 19 U/L Normal 14-40 [facility] Comment on above: Order Comment: Speci men Type: BLOOD SPECIMENOrdering Facility: [facility] Address: [address] Performed By: #### 2 4323-8 ####[facility] LABCLIA [id number] [place] [address] [place] Bilirubin [Mass/Vol] 0.4 mg/dL Normal 0.2-1.3 [facility] Comment on above: Order Comment: Speci men Type: BLOOD SPECIMENOrdering Facility: [facility] Address: [address] Performed By: #### 2 4323-8 ####[facility] LABCLIA [id number] [place] [address] [place] Calcium [Mass/Vol] 9.4 mg/dL Normal 8.5-10.2 [facility] Comment on above: Order Comment: Speci men Type: BLOOD SPECIMENOrdering Facility: [facility] Address: [address] [place] [address] Performed By: #### 2 4323-8 ####[facility] LABCLIA [id number] [place] [address] [place] Chloride [Moles/Vol] 102 mmol/L Normal 97-105 [facility] Comment on above: Order Comment: Speci men Type: BLOOD SPECIMENOrdering Facility: [facility] Address: [address] Performed By: #### 2 4323-8 ####[facility] LABCLIA [id number] [place] [address] [place] CO2 [Moles/Vol] 25 mmol/L Normal 22-30 [facility] Comment on above: Order Comment: Speci men Type: BLOOD SPECIMENOrdering Facility: [facility] Address: [address] [place] [address] Performed By: #### 2 4323-8 ####[facility] LABCLIA [id number] [place] [address] [place] Creatinine [Mass/Vol] 0.86 mg/dL Normal 0.73-1.22 [facility] Comment on above: Order Comment: Speci men Type: BLOOD SPECIMENOrdering Facility: [facility] Address: [address] [place] [address] Performed By: #### 2 4323-8 ####[facility] LABCLIA [id number] [address] [place] ESTIMATED GLOMERULAR FILTRATION RATE 89 mL/min/1.73m??? Normal >=60 [facility] Comment on above: Order Comment: Speci men Type: BLOOD SPECIMENOrdering Facility: [facility] Address: [address] [place] [address] Result Comment: Mariaelena mated Glomerular Filtration Rate (eGFR) is calculated using the 2020 CKD-EPI creatinine equation. This equation utilizes serum creatinine, sex, and age as parameters. The creatinine assay has traceable calibration to isotope dilution-mass spectrometry. Refer to KDIGO guidelines for clinical interpretation. In patients with unstable renal function, e.g. those with acute kidney injury, the eGFR may not accurately reflect actual GFR. Performed By: #### 2 4323-8 ####[facility] LABCLIA [id number] [place] [address] [place] Glucose [Mass/Vol] 166 mg/dL High 74-99 [facility] Comment on above: Order Comment: Speci men Type: BLOOD SPECIMENOrdering Facility: [facility] Address: [address] [place], [place] [address] Result Comment: The [place] Diabetes [employer] (ADA) provides guidance for cutoff values for fasting glucose and random glucose. The ADA defines fasting as no caloric intake for at least 8 hours. Fasting plasma glucose results between 100 to 125 mg/dL indicate increased risk for diabetes (prediabetes). Fasting plasma glucose results greater than or equal to 126 mg/dL meet the criteria for diagnosis of diabetes. In the absence of unequivocal hyperglycemia, results should be confirmed by repeat testing. In a patient with classic symptoms of hyperglycemia or hyperglycemic crisis, random plasma glucose results greater than or equal to 200 mg/dL meet the criteria for diagnosis of diabetes. Reference: Standards of Medical Care in Diabetes 2016, [place] [employer]. Diabetes Care. 2016.39(Suppl 1). Performed By: #### 2 4323-8 ####[facility] LABCLIA [id number] [place] [address] [place] Potassium [Moles/Vol] 3.9 mmol/L Normal 3.7-5.1 [facility] Comment on above: Order Comment: Speci men Type: BLOOD SPECIMENOrdering Facility: [facility] Address: [address] [place] [address] Performed By: #### 2 4323-8 ####[facility] LABCLIA [id number] [place] [address] [place] Protein [Mass/Vol] 6.6 g/dL Normal 6.3-8.0 [facility] Comment on above: Order Comment: Speci men Type: BLOOD SPECIMENOrdering Facility: [facility] Address: [address] [address] Performed By: #### 2 4323-8 ####[facility] LABCLIA [id number] [place] [address] [place] Sodium [Moles/Vol] 140 mmol/L Normal 136-144 [facility] Comment on above: Order Comment: Speci men Type: BLOOD SPECIMENOrdering Facility: [facility] Address: [address] Performed By: #### 2 4323-8 ####[facility] LABCLIA [id number] [place] [address] [place] Urea nitrogen [Mass/Vol] 21 mg/dL Normal 9-24 [facility] Comment on above: Order Comment: Speci men Type: BLOOD SPECIMENOrdering Facility: [facility] Address: [address] Performed By: #### 2 4323-8 ####[facility] LABCLIA [id number] [place] [address] [place] Albumin [Mass/Vol] 3.6 g/dL Low 3.9-4.9 [facility] Comment on above: Order Comment: Speci men Type: BLOOD SPECIMENOrdering Facility: [facility] Address: [address] Performed By: #### 2 4323-8 ####[facility] LABCLIA [id number] [place] [address] [place] ALP [Catalytic activity/Vol] 96 U/L Normal 38-113 [facility] Comment on above: Order Comment: Speci men Type: BLOOD SPECIMENOrdering Facility: [facility] Address: [address] Performed By: #### 2 4323-8 ####[facility] LABCLIA [id number] [place] [address] [place] ALT [Catalytic activity/Vol] 18 U/L Normal 10-54 [facility] Comment on above: Order Comment: Speci men Type: BLOOD SPECIMENOrdering Facility: [facility] Address: [address] Performed By: #### 2 4323-8 ####[facility] LABCLIA [id number] [address] [id number] [address] [place] Anion gap [Moles/Vol] 10 mmol/L Normal 9-18 [facility] Comment on above: Order Comment: Speci men Type: BLOOD SPECIMENOrdering Facility: [facility] Address: [address] [place], [place] [address] Performed By: #### 2 4323-8 ####[facility] LABCLIA [id number] [place] [address] [place] AST [Catalytic activity/Vol] 16 U/L Normal 14-40 [facility] Comment on above: Order Comment: Speci men Type: BLOOD SPECIMENOrdering Facility: [facility] Address: [address] [place], [place] [address] Performed By: #### 2 4323-8 ####[facility] LABCLIA [id number] [place] [address] [place] Bilirubin [Mass/Vol] 0.5 mg/dL Normal 0.2-1.3 [facility] Comment on above: Order Comment: Speci men Type: BLOOD SPECIMENOrdering Facility: [facility] Address: [address] [place], [place] [address] Performed By: #### 2 4323-8 ####[facility] LABCLIA [id number] [place] [address] [place] Calcium [Mass/Vol] 8.7 mg/dL Normal 8.5-10.2 [facility] Comment on above: Order Comment: Speci men Type: BLOOD SPECIMENOrdering Facility: [facility] Address: [address] [place], [place] [address] Performed By: #### 2 4323-8 ####[facility] LABCLIA [id number] [place] [address] [place] Chloride [Moles/Vol] 105 mmol/L Normal 97-105 [facility] Comment on above: Order Comment: Speci men Type: BLOOD SPECIMENOrdering Facility: [facility] Address: [address] Performed By: #### 2 4323-8 ####[facility] LABCLIA [id number] [place] [address] [place] CO2 [Moles/Vol] 24 mmol/L Normal 22-30 [facility] Comment on above: Order Comment: Speci men Type: BLOOD SPECIMENOrdering Facility: [facility] Address: [address] [address] Performed By: #### 2 4323-8 ####[facility] LABIA [id number] [place] [address] [place] Creatinine [Mass/Vol] 0.78 mg/dL Normal 0.73-1.22 [facility] Comment on above: Order Comment: Speci men Type: BLOOD SPECIMENOrdering Facility: [facility] Address: [address] [place] [address] Performed By: #### 2 4323-8 ####[facility] LABIA [id number] [place] [address] [place] ESTIMATED GLOMERULAR FILTRATION RATE 92 mL/min/1.73m??? Normal >=60 [facility] Comment on above: Order Comment: Speci men Type: BLOOD SPECIMENOrdering Facility: [facility] Address: [address] [place] [address] Result Comment: Mariaelena mated Glomerular Filtration Rate (eGFR) is calculated using the 2020 CKD-EPI creatinine equation. This equation utilizes serum creatinine, sex, and age as parameters. The creatinine assay has traceable calibration to isotope dilution-mass spectrometry. Refer to KDIGO guidelines for clinical interpretation. In patients with unstable renal function, e.g. those with acute kidney injury, the eGFR may not accurately reflect actual GFR. Performed By: #### 2 4323-8 ####[facility] LABCLIA [id number] [place] [address] [place] Glucose [Mass/Vol] 217 mg/dL High 74-99 [facility] Comment on above: Order Comment: Speci men Type: BLOOD SPECIMENOrdering Facility: [facility] Address: [address] [place] [address] Result Comment: The [place] Diabetes Association (ADA) provides guidance for cutoff values for fasting glucose and random glucose. The ADA defines fasting as no caloric intake for at least 8 hours. Fasting plasma glucose results between 100 to 125 mg/dL indicate increased risk for diabetes (prediabetes). Fasting plasma glucose results greater than or equal to 126 mg/dL meet the criteria for diagnosis of diabetes. In the absence of unequivocal hyperglycemia, results should be confirmed by repeat testing. In a patient with classic symptoms of hyperglycemia or hyperglycemic crisis, random plasma glucose results greater than or equal to 200 mg/dL meet the criteria for diagnosis of diabetes. Reference: Standards of Medical Care in Diabetes 2016, [place] [employer]. Diabetes Care. 2016.39(Suppl 1). Performed By: #### 2 4323-8 ####[facility] LABCLIA [id number] [place] [address] [place] Potassium [Moles/Vol] 3.9 mmol/L Normal 3.7-5.1 [facility] Comment on above: Order Comment: Speci men Type: BLOOD SPECIMENOrdering Facility: [facility] Address: [address] [place] [address] Performed By: #### 2 4323-8 ####[facility] LABCLIA [id number] [place] [address] [place] Protein [Mass/Vol] 5.6 g/dL Low 6.3-8.0 [facility] Comment on above: Order Comment: Speci men Type: BLOOD SPECIMENOrdering Facility: [facility] Address: [address] [place] [address] Performed By: #### 2 4323-8 ####[facility] LABCLIA [id number] [place] [address] [place] Sodium [Moles/Vol] 139 mmol/L Normal 136-144 [facility] Comment on above: Order Comment: Speci men Type: BLOOD SPECIMENOrdering Facility: [facility] Address: [address] [address] Performed By: #### 2 4323-8 ####[facility] LABCLIA [id number] [place] [address] [place] Urea nitrogen [Mass/Vol] 14 mg/dL Normal 9-24 [facility] Comment on above: Order Comment: Speci men Type: BLOOD SPECIMENOrdering Facility: [facility] Address: [address] [address] Performed By: #### 2 4323-8 ####[facility] LABIA [id number] [place] [address] [place] Albumin [Mass/Vol] 3.6 g/dL Low 3.9-4.9 [facility] Comment on above: Order Comment: Speci men Type: BLOOD SPECIMENOrdering Facility: [facility] Address: [address] [place], [place] [address] Performed By: #### 2 777-1, 30420-3, 86002-6 ####[facility] LABIA [id number] [place] [address] [place] ALP [Catalytic activity/Vol] 98 U/L Normal 38-113 [facility] Comment on above: Order Comment: Speci men Type: BLOOD SPECIMENOrdering Facility: [facility] Address: [address] Performed By: #### 2 777-1, 20931-9, 98327-6 ####[facility] LABIA [id number] [place] [address] [place] ALT [Catalytic activity/Vol] 19 U/L Normal 10-54 [facility] Comment on above: Order Comment: Speci men Type: BLOOD SPECIMENOrdering Facility: [facility] Address: [address] [place], [place] [address] Performed By: #### 2 777-1, , ####[facility] LABCLIA [id number] [place] [address] [place] Anion gap [Moles/Vol] 12 mmol/L Normal 9-18 [facility] Comment on above: Order Comment: Speci men Type: BLOOD SPECIMENOrdering Facility: [facility] Address: [address] [place], [place] [address] Performed By: #### 2 777-1, , ####[facility] LABIA [id number] [place] [address] [place] AST [Catalytic activity/Vol] 18 U/L Normal 14-40 [facility] Comment on above: Order Comment: Speci men Type: BLOOD SPECIMENOrdering Facility: [facility] Address: [address] [place] [address] Performed By: #### 2 777-1, , ####[facility] LABIA [id number] [place] [address] [place] Bilirubin [Mass/Vol] 0.7 mg/dL Normal 0.2-1.3 [facility] Comment on above: Order Comment: Speci men Type: BLOOD SPECIMENOrdering Facility: [facility] Address: [address] [place], [place] [address] Performed By: #### 2 777-1, , ####[facility] LABIA [id number] [place] [id number] [place] Calcium [Mass/Vol] 8.3 mg/dL Low 8.5-10.2 [facility] Comment on above: Order Comment: Speci men Type: BLOOD SPECIMENOrdering Facility: [facility] Address: [address] Performed By: #### 2 777-1, , ####[facility] LABIA [id number] [place] [address] [place] Chloride [Moles/Vol] 102 mmol/L Normal 97-105 [facility] Comment on above: Order Comment: Speci men Type: BLOOD SPECIMENOrdering Facility: [facility] Address: [address] [place] [address] Performed By: #### 2 777-1, , ####[facility] LABIA [id number] [place] [address] [place] CO2 [Moles/Vol] 22 mmol/L Normal 22-30 [facility] Comment on above: Order Comment: Speci men Type: BLOOD SPECIMENOrdering Facility: [facility] Address: [address] [place] [address] Performed By: #### 2 777-1, , ####[facility] LABIA [id number] [place] [address] [place] Creatinine [Mass/Vol] 0.69 mg/dL Low 0.73-1.22 [facility] Comment on above: Order Comment: Speci men Type: BLOOD SPECIMENOrdering Facility: [facility] Address: [address] [place] [address] Performed By: #### 2 777-1, , ####[facility] [id number] [place] [address] [place] ESTIMATED GLOMERULAR FILTRATION RATE 95 mL/min/1.73m??? Normal >=60 [facility] Comment on above: Order Comment: Speci men Type: BLOOD SPECIMENOrdering Facility: [facility] Address: [address] [place], [place] [address] Result Comment: Mariaelena mated Glomerular Filtration Rate (eGFR) is calculated using the 2020 CKD-EPI creatinine equation. This equation utilizes serum creatinine, sex, and age as parameters. The creatinine assay has traceable calibration to isotope dilution-mass spectrometry. Refer to KDIGO guidelines for clinical interpretation. In patients with unstable renal function, e.g. those with acute kidney injury, the eGFR may not accurately reflect actual GFR. Performed By: #### 2 777-1, , ####[facility] LABCLIA [id number] [address] [address] [place] Glucose [Mass/Vol] 202 mg/dL High 74-99 [facility] Comment on above: Order Comment: Portia tay Type: BLOOD SPECIMENOrdering Facility: [facility] Address: [address] [address] Result Comment: The [place] Diabetes Association (ADA) provides guidance for cutoff values for fasting glucose and random glucose. The ADA defines fasting as no caloric intake for at least 8 hours. Fasting plasma glucose results between 100 to 125 mg/dL indicate increased risk for diabetes (prediabetes). Fasting plasma glucose results greater than or equal to 126 mg/dL meet the criteria for diagnosis of diabetes. In the absence of unequivocal hyperglycemia, results should be confirmed by repeat testing. In a patient with classic symptoms of hyperglycemia or hyperglycemic crisis, random plasma glucose results greater than or equal to 200 mg/dL meet the criteria for diagnosis of diabetes. Reference: Standards of Medical Care in Diabetes 2016, [place] [employer]. Diabetes Care. 2016.39(Suppl 1). Performed By: #### 2 777-1, , ####[facility] LABCLIA [id number] [place] [address] [place] Potassium [Moles/Vol] 4.1 mmol/L Normal 3.7-5.1 [facility] Comment on above: Order Comment: Portia tay Type: BLOOD SPECIMENOrdering Facility: [facility] Address: [address] [id number] Performed By: #### 2 777-1, , ####[facility] LABCLIA [id number] [address] [address] [place] Protein [Mass/Vol] 5.5 g/dL Low 6.3-8.0 [facility] Comment on above: Order Comment: Speci men Type: BLOOD SPECIMENOrdering Facility: [facility] Address: [address] [place] [address] Performed By: #### 2 777-1, 72108-7, 15537-8 ####[facility] LABCLIA [id number] [place] [address] [place] Sodium [Moles/Vol] 136 mmol/L Normal 136-144 [facility] Administration Comment on above: Order Comment: Speci men Type: BLOOD SPECIMENOrdering Facility: [facility] Address: [address] [place] [address] Performed By: #### 2 777-1, 76282-0, 86810-0 ####[facility] LABCLIA [id number] [place] [address] [place] Urea nitrogen [Mass/Vol] 14 mg/dL Normal 9-24 [facility] Comment on above: Order Comment: Speci men Type: BLOOD SPECIMENOrdering Facility: [facility] Address: [address] [place] [address] Performed By: #### 2 777-1, 70563-5, ####[facility] LABCLIA [id number] [place] [address] [place] Albumin [Mass/Vol] 3.0 g/dL Low 3.9-4.9 [facility] Comment on above: Order Comment: Speci men Type: BLOOD SPECIMENOrdering Facility: [facility] Address: [address] [place] [address] Result Comment: Resu lt rechecked. Performed By: #### 1 9123-9, 2777-1, 01085-8 ####[facility] LABCLIA [id number] [place] [address] [place] ALP [Catalytic activity/Vol] 88 U/L Normal 38-113 [facility] Comment on above: Order Comment: Speci men Type: BLOOD SPECIMENOrdering Facility: [facility] Address: [address] [place] [address] Performed By: #### 1 9123-9, 27708-18, 31728-4 ####[facility] LABCLIA [id number] [place] [address] [place] ALT [Catalytic activity/Vol] 15 U/L Normal 10-54 [facility] Comment on above: Order Comment: Speci men Type: BLOOD SPECIMENOrdering Facility: [facility] Address: [address] [place], [place] [address] Performed By: #### 1 9123-9, 2776-02, 39876-0 ####[facility] LABCLIA [id number] [place] [address] [place] Anion gap [Moles/Vol] 14 mmol/L Normal 9-18 [facility] Comment on above: Order Comment: Speci men Type: BLOOD SPECIMENOrdering Facility: [facility] Address: [address] [place], [place] [address] Performed By: #### 1 9123-9, 2776-02, 27912-8 ####[facility] LABCLIA [id number] [address] [place] AST [Catalytic activity/Vol] 16 U/L Normal 14-40 [facility] Comment on above: Order Comment: Speci men Type: BLOOD SPECIMENOrdering Facility: [facility] Address: [address] [place] [phone] Performed By: #### 1 9123-9, 27708-18, 75901-6 ####[facility] LABCLIA [id number] [place] [address] [place] Bilirubin [Mass/Vol] 0.6 mg/dL Normal 0.2-1.3 [facility] Comment on above: Order Comment: Speci men Type: BLOOD SPECIMENOrdering Facility: [facility] Address: [address] Performed By: #### 1 9123-9, 2776-02, ####[facility] LABCLIA [id number] [place] [address] [place] Calcium [Mass/Vol] 8.4 mg/dL Low 8.5-10.2 [facility] Comment on above: Order Comment: Speci men Type: BLOOD SPECIMENOrdering Facility: [facility] Address: [address] Performed By: #### 1 9123-9, 2776-02, ####[facility] LABCLIA [id number] [place] [address] [place] Chloride [Moles/Vol] 103 mmol/L Normal 97-105 [facility] Comment on above: Order Comment: Speci men Type: BLOOD SPECIMENOrdering Facility: [facility] Address: [address] Performed By: #### 1 9123-9, 2776-02, ####[facility] LABCLIA [id number] [place] [address] [place] CO2 [Moles/Vol] 20 mmol/L Low 22-30 [facility] Comment on above: Order Comment: Speci men Type: BLOOD SPECIMENOrdering Facility: [facility] Address: [address] [place] [address] Performed By: #### 1 9123-9, 2776-02, ####[facility] LABCLIA [id number] [place] [address] [place] Creatinine [Mass/Vol] 0.64 mg/dL Low 0.73-1.22 [facility] Comment on above: Order Comment: Speci men Type: BLOOD SPECIMENOrdering Facility: [facility] Address: [address] [place] [address] Performed By: #### 1 9123-9, 2777-1, 57787-7 ####[facility] LABCLIA [id number] [place] [address] [place] ESTIMATED GLOMERULAR FILTRATION RATE 98 mL/min/1.73m??? Normal >=60 [facility] Comment on above: Order Comment: Portia tay Type: BLOOD SPECIMENOrdering Facility: [facility] Address: [address] [place] [phone] Result Comment: Mariaelena mated Glomerular Filtration Rate (eGFR) is calculated using the 2020 CKD-EPI creatinine equation. This equation utilizes serum creatinine, sex, and age as parameters. The creatinine assay has traceable calibration to isotope dilution-mass spectrometry. Refer to KDIGO guidelines for clinical interpretation. In patients with unstable renal function, e.g. those with acute kidney injury, the eGFR may not accurately reflect actual GFR. Performed By: #### 1 9123-9, 2777-1, 35781-0 ####[facility] LABCLIA [id number] [place] [address] [place] Glucose [Mass/Vol] 186 mg/dL High 74-99 [facility] Comment on above: Order Comment: Portia tay Type: BLOOD SPECIMENOrdering Facility: [facility] Address: [place] [phone] Result Comment: The [place] Diabetes [employer] (ADA) provides guidance for cutoff values for fasting glucose and random glucose. The ADA defines fasting as no caloric intake for at least 8 hours. Fasting plasma glucose results between 100 to 125 mg/dL indicate increased risk for diabetes (prediabetes). Fasting plasma glucose results greater than or equal to 126 mg/dL meet the criteria for diagnosis of diabetes. In the absence of unequivocal hyperglycemia, results should be confirmed by repeat testing. In a patient with classic symptoms of hyperglycemia or hyperglycemic crisis, random plasma glucose results greater than or equal to 200 mg/dL meet the criteria for diagnosis of diabetes. Reference: Standards of Medical Care in Diabetes 2016, [place] [employer] Association. Diabetes Care. 2016.39(Suppl 1). Performed By: #### 1 9123-9, 2777-1, 38153-0 ####[facility] LABIA [id number] [place] [address] [place] Potassium [Moles/Vol] 4.0 mmol/L Normal 3.7-5.1 [facility] Comment on above: Order Comment: Speci men Type: BLOOD SPECIMENOrdering Facility: [facility] Address: [address] Performed By: #### 1 9123-9, 2777-, 88963-2 ####[facility] LABIA [id number] [place] [address] [place] Protein [Mass/Vol] 5.1 g/dL Low 6.3-8.0 [facility] Comment on above: Order Comment: Speci men Type: BLOOD SPECIMENOrdering Facility: [facility] Address: [address] Performed By: #### 1 9123-9, 27708-18, 27753-0 ####[facility] LABIA [id number] [place] [address] [place] Sodium [Moles/Vol] 137 mmol/L Normal 136-144 [facility] Comment on above: Order Comment: Speci men Type: BLOOD SPECIMENOrdering Facility: [facility] Address: [address] Performed By: #### 1 9123-9, 2777-, 77885-1 ####[facility] LABIA [id number] [place] [address] [place] Urea nitrogen [Mass/Vol] 12 mg/dL Normal 9-24 [facility] Comment on above: Order Comment: Speci men Type: BLOOD SPECIMENOrdering Facility: [facility] Address: [address] Performed By: #### 1 9123-9, 2777-1, 52691-7 ####[facility] LABIA [id number] [place] [id number] [place] ECG COMPLETEon 08-29-2022 ECG COMPLETE Ventricular Rate : 7 0 BPM Atrial Rate : 70 BPM P-R Interval : 186 ms QRS Duration : 102 ms Q-T Interval : 454 ms QTC Calculation(Bazett) : 490 ms Calculated P [place] : 44 degrees Calculated R [place] : -26 degrees Calculated T [place] : -27 degrees SINUS RHYTHM WITH PREMATURE ATRIAL COMPLEXES NONSPECIFIC ST ABNORMALITY ABNORMAL ECG Confirmed by ERICK STEWARD MD ([id number]) on 08/31/2022 7:45:00 AM NAME : OLAF BRIONES PID : [id number] : 1945 Gender : Male Race : Unknown ORD : [id number] Procedure Date : Aug 29 2022 00:07:53 Edit Date : Aug 31 2022 07:45:03 Diagnosis: SINUS RHYTHM WITH PREMATURE ATRIAL COMPLEXES NONSPECIFIC ST ABNORMALITY ABNORMAL ECG Confirmed by ERICK STEWARD MD ([id number]) on 08/31/2022 7:45:00 AM Test Reason : Post-OP Location : [address] : [place] [address] Overread By : ERICK STEWARD MD Edited By : ERICK STEWARD MD Referred By : , Acquired by : NAHOMI RINALDI [facility] Magnesium SerPl-mCncon 08-29 Magnesium [Mass/Vol] 2.1 mg/dL Normal 1.7-2.3 [facility] Comment on above: Order Comment: Speci men Type: BLOOD SPECIMENOrdering Facility: [facility] Address: [address] [place] [phone] Performed By: #### 2 777-1, 23745-8, 30866-4 ####[facility] [id number] [address] Magnesium [Mass/Vol] 1.8 mg/dL Normal 1.7-2.3 [facility] Comment on above: Order Comment: Speci men Type: BLOOD SPECIMENOrdering Facility: [facility] Address: [address] [place] [address] Performed By: #### 1 9123-9, 2777-1, 94895-2 ####[facility] LABIA [id number] [place] [address] [place] PT panel Coag (PPP)on 2022 INR Coag (PPP) [Relative time] 1.0 {INR} Normal 0.9-1.3 [facility] Comment on above: Order Comment: Speci men Type: BLOOD SPECIMENOrdering Facility: [facility] Address: [address] [place] [address] Result Comment: Mago min K Antagonist (VKA) Therapeutic Range: INR 2 to 3 (Target INR of 2.5) Note: For patients treated with VKA drugs, such as warfarin, the [place] [employer] 2012 Guideline recommends a therapeutic INR range of 2 to 3 (target INR of 2.5). This recommendation includes high-risk patients with antiphospholipid syndrome with previous arterial or venous thromboembolism, current-generation mechanical or bioprosthetic aortic heart valve replacement. Note: Patients with mechanical aortic valve replacement and additional risk factors for thromboembolic events (atrial fibrillation, previous thromboembolism, LV dysfunction, hypercoagulable conditions) or an older generation mechanical AVR (i.e., ball in-Cage) or any mechanical MVR should have a INR therapeutic range of 2.5 to 3.5 (target INR of 3). David GH, et al. Chest 2012, 141:7S-47S Daniel RA, et al. [facility] 2017, 70: 252-289 Performed By: #### 3 4528-0, 64899-9 ####[facility] LABCLIA [id number] [place] [address] [place] PT Coag (PPP) [Time] 10.7 s Normal 9.7-13.0 [facility] Comment on above: Order Comment: Portia tay Type: BLOOD SPECIMENOrdering Facility: [facility] Address: [address] [place] [address] Performed By: #### 3 4528-0, 97217-8 ####[facility] LABCLIA [id number] [place] [address] [place] INR Coag (PPP) [Relative time] 1.1 {INR} Normal 0.9-1.3 [facility] Comment on above: Order Comment: Speci men Type: BLOOD SPECIMENOrdering Facility: [facility] Address: [address] [place] [address] Result Comment: Mago min K Antagonist (VKA) Therapeutic Range: INR 2 to 3 (Target INR of 2.5) Note: For patients treated with VKA drugs, such as warfarin, the [place] [employer] 2012 Guideline recommends a therapeutic INR range of 2 to 3 (target INR of 2.5). This recommendation includes high-risk patients with antiphospholipid syndrome with previous arterial or venous thromboembolism, current-generation mechanical or bioprosthetic aortic heart valve replacement. Note: Patients with mechanical aortic valve replacement and additional risk factors for thromboembolic events (atrial fibrillation, previous thromboembolism, LV dysfunction, hypercoagulable conditions) or an older generation mechanical AVR (i.e., ball in-Cage) or any mechanical MVR should have a INR therapeutic range of 2.5 to 3.5 (target INR of 3). David GH, et al. Chest 2012, 141:7S-47S Daniel RA, et al. [facility] 2017, 70: 252-289 Performed By: #### 3 4528-0, 57283-4 ####[facility] LABIA [id number] [place] [address] [place] PT Coag (PPP) [Time] 11.2 s Normal 9.7-13.0 [facility] Comment on above: Order Comment: Speci men Type: BLOOD SPECIMENOrdering Facility: [facility] Address: [place] [address] Performed By: #### 3 4528-0, 51910-4 ####[facility] LABIA [id number] [place] [address] [place] Phosphate SerPl-ncon 08-29 Phosphate [Mass/Vol] 4.9 mg/dL High 2.7-4.8 [facility] Comment on above: Order Comment: Speci men Type: BLOOD SPECIMENOrdering Facility: [facility] Address: [address] [place] [address] Performed By: #### 2 777-1, 16297-7, 00486-3 ####[facility] LABCLIA [id number] [address] OF [facility] Phosphate [Mass/Vol] 4.2 mg/dL Normal 2.7-4.8 [facility] Comment on above: Order Comment: Speci men Type: BLOOD SPECIMENOrdering Facility: [facility] Address: [address] [place], [place] [address] Performed By: #### 1 9123-9, 2777-1, 42262-5 ####[facility] LABCLIA [id number] [address] OF [facility] THERAPY NTon 08-29-2022 THERAPY NT HNO ID: [id number] Author: Jenna Duggan, PT Service: Physical Therapy Author Type: Physical Therapist Type: Therapy (PT/OT/Speech/Resp) Filed: 08/29/2022 2:51 PM Note Text: Physical Therapy Evaluation SERVICE DATE: 08/29/2022 SERVICE TIME: 1403 to 1438 ROOM: [place] [address] Recommended Discharge Disposition: Home Anticipated Discharge Needs: Physical Assist at Home Physical Assist at Home for: Cleaning, Laundry, Shopping, Transportation Supervision at Home due to: Other: See Comment (recent STEMI) Recommended Discharge Equipment: No equipment needs anticipated PT 6 Clicks Score: 20 Precautions/Activity Restrictions: Fall Risk, Lines/Tubes/Drains Current Hospital Course: 77 y/o male with PMHx of HTN, HLD, DM, recent STEMI (08/20/2022), transferred from [facility] for gross hematuria. Currently with 18Fr 3-way catheter on CBI. 08/28/22: s/p cystoscopy, clot evacuation, cystolitholapaxy, TURP. Admitted to SICU postoperatively due to pressor requirements and risk of hyponatremia due to length of TURP. 22Fr [address] hernandez placed introp, on traction and CBI. Reason for Hospital Admission: Pt 77y/o male transferred from [facility] for gross hematuria secondary to recent STEMI on 08/20/22 Relevant Past Medical History: STEMI on 08/20/22 (s/p JUHI),HTN, HLD, DM, nephrolithiasis Response to Therapy Interventions: Good Participation in Activities, On-Track to Achieve Discharge Goals Continued Skilled Needs Due to: Continued Monitoring of Vital Signs During Mobility Required, Functional Mobility/Skill Impairments, Safety Concerns Physical Therapy Problem List: Education Deficit, Pain, Safety Deficits, Impaired Self Care, Decreased Activity Tolerance, Decreased Range Of Motion, Decreased Strength, Functional Mobility Impairment, Sensory Deficit, Balance Impaired Treatment Interventions: Education, Self Care / Home Management, Energy Conservation Training, Joint Mobility, Strengthening, Functional Mobility Training, Balance Training, Neuromuscular Re-education, Edema Management, Pain Management Plan for Next Visit: Gait Training, Stair Training Home Environment Patient Lives With: Spouse Assistance Available: 24-Hour Entry To Home: Stairs Number Of Stairs Into Home: 1 Number Of Stairs To Bed/Bath: 10 (Shower available on first floor with no stairs but preferred shower in basement, bedroom 1st floor) Tub/Shower Type: Walk-in Laundry: Basement-Spouse completes Equipment Owned: Cane, Walker- Standard Prior Functional Level: Within Functional Limits Prior Functional Level Comments: Pt previously indep in all I/ADLs, self-care, and transportation. Pt previously active, enjoys mowing lawns for friends and maintaining multiple acres of family land. Baseline Cognition: Oriented to self, Oriented to place, Oriented to time, Oriented to situation Patient Report: Agreeable to PT. CURRENT FUNCTIONAL STATUS: Most recent performance Current Functional Mobility Assist Level Additional Information Rolling Supine to Sit Stand By Assistance Sit to Supine Scooting Contact Guard Assistance Sit to Stand Contact Guard Assistance Stand to Sit Contact Guard Assistance Bed to Chair Contact Guard Assistance Bed To Chair Transfer Type: Stepping Bed To Chair Transfer Equipment: Gait Belt Toilet/Commode Gait Contact Guard Assistance Gait Device: IV Pole Gait Distance (feet): 150 ft Stairs Curb Step Car Transfer Blank hernandez indicate activity not attempted General Deviations/Observations: Diana decreased, Flexed trunk posture -M: 7: Walk 25 feet or more Learning/Educational Needs: Discharge Plan, Disease Process, Equipment, Functional Activities/Mobility, Pain Management, Plan of Care, Changes in Plan of Care, Precautions, PT In-Hospital Exercise Program, Safety, Respiratory Function, Rehabilitation Techniques and Procedures, Family Education/Training Goals for Plan of Care: Patient/Caregiver Goals: Walk, Go Home Goals: Patient will demonstrate progress with functional mobility to allow safe discharge to home with available support and/or physical assistance. Ambulate Up and Down Steps with: Modified Independent Number of Steps: 10 Device: Rail Rehab Potential: Good Patient will be discontinued from Physical Therapy when no further skilled needs are identified in this setting. PLAN: PT Frequency: 2 Times Per Week Plan of Care developed with: Patient TREATMENT INTERVENTIONS: Therapy Diagnosis: Reduced mobility-other Interventions Provided: Evaluation, Therapeutic Activity (59579), Gait Training (98109) $ Evaluation-Moderate (95270) Billed Units: 1 unit Therapeutic Activity (39552) Treatment Minutes: 7 $ Therapeutic Activity (46934) Billed Units: 0 units Gait Training (23792) Treatment Minutes: 13 $ Gait Training (08822) Billed Units: 1 unit Training AND Education Provided in: Benefits of In-Hospital Mobility, Bed Mobility, Energy Conservation, Equipment, Exer (more content not included)... Normal [facility] THERAPY NT HNO ID: [id number] Author: Alia Smith OTR/L Service: Occupational Therapy Author Type: Occupational Therapist Type: Therapy (PT/OT/Speech/Resp) Filed: 08/29/2022 11:06 AM Note Text: Occupational Therapy Evaluation SERVICE DATE: 08/29/2022 SERVICE TIME: 50 to 0921 ROOM: [place] [address] Recommended Discharge Disposition: Home Anticipated Discharge Needs: Supervision at Home, Equipment, Physical Assist at Home Physical Assist at Home for: Laundry, Transportation, Shopping, Cleaning Supervision at Home due to: Other: See Comment (recent STEMI) Recommended Discharge Equipment: Grab Bars-Shower, Shower Chair OT 6 Clicks Score: 21 Precautions/Activity Restrictions: Fall Risk, Lines/Tubes/Drains Current Hospital Course: 77 y/o male with PMHx of HTN, HLD, DM, recent STEMI (08/20/2022), transferred from [facility] for gross hematuria. Currently with 18Fr 3-way catheter on CBI. 08/28/22: s/p cystoscopy, clot evacuation, cystolitholapaxy, TURP. Admitted to SICU postoperatively due to pressor requirements and risk of hyponatremia due to length of TURP. 22Fr [address] hernandez placed introp, on traction and CBI. Reason for Hospital Admission: Pt 77y/o male transferred from [facility] for gross hematuria secondary to recent STEMI on 08/20/22 Relevant Past Medical History: STEMI on 08/20/22 (s/p JUHI),HTN, HLD, DM, nephrolithiasis Assessment Comments: Nursing approved OT session. Pt agreeable throughout. Pt AANDOx4, CAM-, and demonstrated B UE ROM WFL. Pt completed grooming task with set up assist. Functional mobility assessment deferred, awaiting clarification from urology team regarding mobility orders. One additional OT visit would be beneficial to assess functional mobility as it relates to independence in I/ADLs. Occupational Therapy Problem List: Functional Mobility Impairment, Education Deficit, Safety Deficits, Impaired Self Care, Decreased Activity Tolerance Treatment Interventions: Education, Self Care/Home Management, Energy Conservation Training, Functional Mobility Training Home Environment Patient Lives With: Spouse Assistance Available: 24-Hour Entry To Home: Stairs Number Of Stairs Into Home: 1 Number Of Stairs To Bed/Bath: 10 (Shower available on first floor with no stairs but preferred shower in basement, bedroom 1st floor) Tub/Shower Type: Walk-in Laundry: Basement-Spouse completes Equipment Owned: Cane, Walker- Standard Prior Functional Level: Within Functional Limits Prior Functional Level Comments: Pt previously indep in all I/ADLs, self-care, and transportation. Pt previously active, enjoys mowing lawns for friends and maintaining multiple acres of family land. 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 Occupational Factors Life Roles: Retired, Spouse/Significant Other, Parent, Family Member Identified Strengths: Good Support System, Involvement in Hobbies/Leisure Activities, Positive Coping Strategies, Effective Communication Skills, Strong Awareness of Deficit(s), Motivation, Memory/Attention, Follows Multi-Step Commands Identified Barriers: Medical Acuity/Chronic Condition CURRENT FUNCTIONAL STATUS: Most recent performance Current Activities of Daily Living Assist Level Additional Information Feeding Set Up Grooming Set Up Bathing Upper Body Supervision Bathing Lower Body Minimal Assistance Dressing Upper Body Supervision Dressing Lower Body Minimal Assistance Toileting Contact Guard Assistance Instrumental Activities of Daily Living Assist Level Additional Information Meal/Beverage Prep Cleaning Laundry Medication Management with Strategies Functional Mobility Assist Level Additional Information Rolling Supine to Sit Sit to Supine Scooting Sit to Stand Stand to Sit Bed to Chair Toilet/Commode Shower Functional Mobility Blank hernandez indicate activity not attempted Learning/Educational Needs: Discharge Plan, Equipment, Family Education/Training, Plan of Care, Safety, Functional Activities/Mobility, Self Care Goals for Plan of Care: Patient/Caregiver Goals: Participate in meaningful activities, Improve physical, mental and/or social well-being, Reduce ADL/IADL barriers Goals: Patient will demonstrate progress with self-care, cognitive and/or coping needs identified to allow safe discharge to home with available support and/or physical assistance. Rehab Potential: Excellent Patient will be discontinued from Occupational Therapy when no further skilled needs are identified in this setting. PLAN: OT Frequency: One Additional Visit Plan of Care developed with: Patient TREATMENT INTERVENTIONS: Therapy Diagnosis: Decreased activities of daily living (ADL), Reduced mobility-other Interventions Provided: Evaluation, Self Fpc Management (88253) $ Evaluat (more content not included)... Normal [facility] aPTT PPPon 08-29-2022 aPTT Coag (PPP) [Time] 21.0 s Low 23.0-32.4 [facility] Comment on above: Order Comment: Speci men Type: BLOOD SPECIMENOrdering Facility: [facility] Address: [address] [place] [address] Performed By: #### 3 4528-0, 02573-7 ####[facility] LABCLIA [id number] [address] [facility] aPTT Coag (PPP) [Time] 26.1 s Normal 23.0-32.4 [facility] Comment on above: Order Comment: Speci men Type: BLOOD SPECIMENOrdering Facility: [facility] Address: [address] [place] [address] Performed By: #### 3 4528-0, 32318-1 ####[facility] LABCLIA [id number] [address] [address] [place] ANES POSTPROC EVALon 023 ANES POSTPROC EVAL HNO ID: [id number] Author: Michelle Day MD Service: ? Author Type: Anesthesiologist Type: Anesthesia Postprocedure Evaluation Filed: 08/28/2022 8:38 PM Note Text: POST ANESTHESIA EVALUATION NOTE : 1945 Procedure Summary Date: 08/28/22 Room / Location: [address] Anesthesia Start: 1752 Anesthesia Stop: 2030 Procedure: CYSTOURETHROSCOPY FULGURATION BLADDER (Bladder) Diagnosis: Hematuria (Hematuria [R31.9]) Surgeons: David Andrews MD Responsible Provider: Weston Avila MD Anesthesia Type: general ASA Status: 4 - Emergent Anesthesia Type: general Airway Type: LMA Last Vitals Vitals Value Taken Time BP 126/67 08/28/222029 Temp 36.7 ?C (98.1 ?F) 08/28/222025 Pulse 77 08/28/222035 Resp 27 08/28/222035 SpO2 100 % 08/28/222035 Vitals shown include unvalidated device data. Post Anesthesia Patient Status Patient Evaluation: ICU. Anticipated Disposition: ICU unplanned admission. Neurological Status: aware and responsive. Pulmonary Status: breathing comfortably on supplemental oxygen Airway Control: returned to baseline unsupported. Cardiovascular Status: stable. Pain Management: clinically adequate Postoperative Hydration: acceptable. Intraoperative Events: no significant anesthesia events Post Operative Nausea/Vomiting Status: no significant post operative nausea or vomiting Recommendation: continue current plan of care and further care per PACU/ICU/floor team. Anesthesia Observations No Documentation SIGNATURE: Michelle Day MD PATIENT NAME: Olaf Briones DATE: August 28, 2022 TIME: 8:37 PM CSN: [id number] Normal [facility] ANES PRE-OPon 08-28-2022 ANES PRE-OP HNO ID: [id number] Author: Weston Avila MD Service: ? Author Type: Anesthesiologist Type: Anesthesia Preprocedure Evaluation Filed: 08/28/2022 6:10 PM Note Text: ANESTHESIOLOGY DAY OF SURGERY NOTE : 1945 Procedure Information Anesthesia Start Date/Time: 08/28/221752 Procedure: CYSTOURETHROSCOPY FULGURATION BLADDER (Bladder) Location: [facility] Surgeons: David Andrews MD Estimated body mass index is 25.23 kg/m? as calculated from the following: Height as of this encounter: 173 cm (5' 8.11 ). Weight as of this encounter: 75.5 kg (166 lb 7.2 oz). Most recent hematocrit and potassium results: Hematocrit 32.6 08/28/2022 Potassium 4.0 08/28/2022 Relevant Problems CARDIO (+) Coronary artery disease involving [place] coronary artery of [place] heart without angina pectoris (+) Myocardial infarction (HCC) (+) Primary hypertension ENDO (+) Type 2 diabetes mellitus without complication, without long-term current use of insulin (HCC) I - PHYSICAL EVALUATION AIRWAY Patient intubated: No. Tracheostomy tube not present Mallampati: II. TM distance: >3 FB. Neck ROM: full ROM without neurological symptoms. Mouth opening: adequate. Short neck: no. Thick neck: no DENTAL Normal dental observations. II - ANESTHESIA PLAN ASA Score: 4; emergent. Anesthetic Plan: general Airway type: LMA NPO Status: adequate Beta Reynaldo Monitoring Plan Monitoring plan: standard ASA. Post Procedure Analgesic Plan Postoperative analgesic plan: parenteral or oral opioids. Informed Consent Anesthetic risks, benefits, alternatives, personnel and consent discussed: yes. Patient / Responsible Constitution Party agrees to proceed: yes Patient / Surrogate agrees to blood products: Yes DNR status not reviewed with patient and/or family prior to surgery. Significant changes in the patient condition since the History and Physical, not otherwise documented in primary service progress note: no. Potential Anesthesia issues that may suggest increased risk of complications or contraindication to planned procedure: none. Vitals Value Taken Time BP Pulse 78 08/28/221752 Resp Temp SpO2 99 % 08/28/221752 Facility-Administered Medications as of 08/28/2022 Medication Dose Route Frequency - [Held on Transfer] dextrose 15 gram/32 mL 15 g (TRUEPLUS) 15 g ORAL PRN Or - [Held on Transfer] glucagon 1 mg injection 1 mg INTRAMUSCULAR PRN Or - [Held on Transfer] dextrose 10% iv bolus 12.5 g INTRAVENOUS PRN - [Held on Transfer] insulin lispro injection (rapid acting) (HumaLOG) SUBCUTANEOUS w MEALS AND HS - [COMPLETED] NaCl 0.9% 500 mL iv bolus 500 mL INTRAVENOUS ONCE - [Held on Transfer] docusate sodium 100 mg cap(s) (COLACE) 100 mg ORAL BID - [Held on Transfer] NaCl 0.9% iv flush bag 20 mL INTRAVENOUS PRN - [Held on Transfer] lactated ringers iv infusion 75 mL/hr INTRAVENOUS CONTINUOUS - [Held on Transfer] acetaminophen 650 mg tab(s) (TYLENOL) 650 mg ORAL q 4 H PRN - [Held on Transfer] oxyCODONE IR 5 mg tab(s) (ROXICODONE) 5 mg ORAL q 6 H PRN - [Held on Transfer] ondansetron (PF) 4 mg injection (ZOFRAN) 4 mg INTRAVENOUS q 6 H PRN - [Held on Transfer] melatonin 3 mg tab(s) 3 mg ORAL AT BEDTIME PRN - [Held on Transfer] docusate sodium 100 mg cap(s) (COLACE) 100 mg ORAL BID PRN - [Held on Transfer] allopurinol 300 mg tab(s) (ZYLOPRIM) 300 mg ORAL DAILY - [Held on Transfer] amLODIPine 5 mg tab(s) (NORVASC) 5 mg ORAL DAILY - [Held on Transfer] aspirin 81 mg chewable tab(s) 81 mg ORAL DAILY - [Held on Transfer] atorvastatin 80 mg tab(s) (LIPITOR) 80 mg ORAL AT BEDTIME - [Held on Transfer] carvedilol 6.25 mg tab(s) (COREG) 6.25 mg ORAL BID w MEALS - [Held on Transfer] ticagrelor 90 mg tab(s) (BRILINTA) 90 mg ORAL BID - [Held on Transfer] piperacillin-tazobactam iv piggyback 3.375 g in dextrose (iso-osmotic) 50 mL (ZOSYN) 3.375 g INTRAVENOUS q 6 H - [Held on Transfer] sodium chloride 0.9 % (flush) 2-10 mL (BD POSIFLUSH) 2-10 mL INTRAVENOUS DIRECTED PRN And - [Held on Transfer] perflutren lipid microspheres 1.1 mg/mL 1.3 mL injection (DEFINITY) 1.3 mL INTRAVENOUS DIRECTED PRN - [COMPLETED] lactated ringers 500 mL iv bolus 500 mL INTRAVENOUS ONCE Outpatient Medications as of 08/28/2022 Medication Sig - allopurinol (ZYLOPRIM) 300 mg tablet Take 300 mg by mouth once daily. - amLODIPine (NORVASC) 5 mg tablet Take 5 mg by mouth once daily. - carvedilol (COREG) 6.25 mg tablet Take 6.25 mg by mouth twice daily with meals. - ticagrelor (BRILINTA) 90 mg tablet Take 90 mg by mouth twice daily. - aspirin, enteric coated (ASPIRIN, ENTERIC COATED) 81 mg EC tablet Take 81 mg by mouth once daily. - lisinopril 2.5 mg tablet Take 2.5 mg by mouth once daily. - diclofenac, EC, (VOLTAREN) 75 mg EC tablet Take 75 mg by mouth twice daily. - nitroglycerin sublingual (NITROQUICK) 0.4 mg SL tablet Dissolve 0.4 mg under the tongue every 5 minutes as nee (more content not included)... Normal [facility] ANES PREOPon 08-28-2022 ANES PREOP HNO ID: [id number] Author: Jaycee Bernard MD Service: Anesthesiology Author Type: Resident Type: Anesthesia PreOp Filed: 08/28/2022 1:13 PM Note Text: -- Attestation signed by Grady Church MD at 08/28/2022 3:47 PM I reviewed the pertinent patient history and agree with the resident's recommended plan for care. Grady Church MD -- GENERAL ANESTHESIA PREOPERATIVE ASSESSMENT SERVICE DATE: 08/28/2022 SERVICE TIME: 12 PM Subjective CHIEF COMPLAINT: No chief complaint on file. HPI: This is a 77 year old male with Olaf Briones is a 77 year old male with PMHx of HTN, HLD, DM, recent STEMI (s/p JUHI, on DAPT), nephrolithiasis who presents general anesthesia pre-op evaluation for cystoscopy to evaluate gross hematuria. No past medical history on file. No past surgical history on file. No family history on file. Current Facility-Administered Medications Medication Dose Route Frequency docusate sodium 100 mg cap(s) (COLACE) 100 mg ORAL BID NaCl 0.9% iv flush bag 20 mL INTRAVENOUS PRN lactated ringers iv infusion 75 mL/hr INTRAVENOUS CONTINUOUS acetaminophen 650 mg tab(s) (TYLENOL) 650 mg ORAL q 4 H PRN oxyCODONE IR 5 mg tab(s) (ROXICODONE) 5 mg ORAL q 6 H PRN ondansetron (PF) 4 mg injection (ZOFRAN) 4 mg INTRAVENOUS q 6 H PRN melatonin 3 mg tab(s) 3 mg ORAL AT BEDTIME PRN docusate sodium 100 mg cap(s) (COLACE) 100 mg ORAL BID PRN allopurinol 300 mg tab(s) (ZYLOPRIM) 300 mg ORAL DAILY amLODIPine 5 mg tab(s) (NORVASC) 5 mg ORAL DAILY aspirin 81 mg chewable tab(s) 81 mg ORAL DAILY atorvastatin 80 mg tab(s) (LIPITOR) 80 mg ORAL AT BEDTIME carvedilol 6.25 mg tab(s) (COREG) 6.25 mg ORAL BID w MEALS ticagrelor 90 mg tab(s) (BRILINTA) 90 mg ORAL BID piperacillin-tazobactam iv piggyback 3.375 g in dextrose (iso-osmotic) 50 mL (ZOSYN) 3.375 g INTRAVENOUS q 6 H sodium chloride 0.9 % (flush) 2-10 mL (BD POSIFLUSH) 2-10 mL INTRAVENOUS DIRECTED PRN And perflutren lipid microspheres 1.1 mg/mL 1.3 mL injection (DEFINITY) 1.3 mL INTRAVENOUS DIRECTED PRN ALLERGIES Allergen Reactions Albuterol Other: See Comments Hydrochlorothiazide Rash Objective Patient Vitals for the past 72 hrs: BP Temp Temp src Pulse Resp SpO2 Height Weight 08/28/22 0927 129/70 36.7 ?C (98.1 ?F) Oral 72 18 98 % -- -- 08/28/22 0523 116/57 36.5 ?C (97.7 ?F) Oral 69 18 97 % -- -- 08/28/22 0106 98/56 36.7 ?C (98.1 ?F) Oral 68 16 95 % -- -- 08/27/22 2037 124/66 37 ?C (98.6 ?F) Oral 71 16 98 % -- -- 08/27/22 1715 107/58 37.1 ?C (98.8 ?F) Oral 67 16 98 % -- -- 08/27/22 1700 107/58 -- -- 67 -- -- -- -- 08/27/22 1319 100/63 36.8 ?C (98.2 ?F) Oral 77 16 94 % -- -- 08/27/22 0859 119/75 -- -- -- -- -- -- -- 08/27/22 0848 -- -- -- -- 16 97 % -- -- 08/27/22 0846 (!) 60/34 36.7 ?C (98.1 ?F) -- 76 -- 97 % -- -- 08/27/22 0619 136/84 36.9 ?C (98.4 ?F) Oral 87 16 99 % -- -- 08/27/22 0559 -- -- -- -- -- -- 173 cm (5' 8.11 ) 75.5 kg (166 lb 7.2 oz) REVIEW OF SYSTEMS: DAY CARE HOME MOTHER: no history of DAY CARE HOME MOTHER disease RESP: no history of pulmonary disease, no smoking history CARD: history of HTN on norvasc and coreg; and history of past VT s/p JUHI (08/20/22); currently no chest pain or SOB GI: no history of GI disease RENAL: nephrolithiasis ENDO: history of diabetes with none HEME: no history of hematologic disease RHEUM: no history of rheumatologic disease PSYCHIATRIC: no history of psychiatric disease PHYSICAL EXAM: VITAL SIGNS: BP 129/70 Pulse 72 Temp 36.7 ?C (98.1 ?F) (Oral) Resp 18 Ht 173 cm (5' 8.11 ) Wt 75.5 kg (166 lb 7.2 oz) SpO2 98% BMI 25.23 kg/m? GENERAL: Healthy, Mild distress, Cooperative. NECK: no carotid bruits CARDIAC: regular rate and rhythm LUNGS: Lungs clear to auscultation. Good air entry bilaterally. NEURO: Grossly normal, no focal deficits ANESTHESIOLOGY REVIEW: PATIENT INTUBATED AND/OR HAS TRACHEOSTOMY: no MOUTH OPENING/TMJ : Full jaw ROM MICROGNATHIA/OVERBITE: no MP SCORE: MP 3 DENTITION: Intact THYROMENTAL DIST: WNL SHORT NECK: No NECK FLEX: Full ROM NECK EXTENSION: Full ROM INTUBATION HISTORY: History of general anesthesia without difficulty. ADVERSE ANESTHESIA EVENT: No history of adverse event. Does this patient accept administration of blood and/or blood products while under anesthesia:Patient WILL accept blood products. PRE-OP PLAN ORDERED: Not Applicable PLANNED ANESTHETIC: General with LMA SPECIAL ANESTHESIA CONSIDERATIONS: n/a PAIN MANAGEMENT PLAN: routine/PRN IV Body mass index is 25.23 kg/m?. EKG READING: Confirmed - normal sinus rhythm CARDIAC TESTING: Stress Test: Not done. Echocardiogram: A TTE Echocardiogram was done on 08/28/22 showing EF of 55% and normal biventricular and valvular function follows ACS event. Cardiac Cath: Not done. PFT Test: Not done. L (more content not included)... Normal [facility] BRIEF OP NOTon 08-28-2022 BRIEF OP NOT HNO ID: [id number] Author: Gt Mcgowan MD Service: Urology Author Type: Resident Type: Brief Op Note Filed: 08/28/2022 7:50 PM Note Text: BRIEF OP NOTE LOG ID: [id number] Surgery/Procedure Date: 08/28/2022 Incision/Procedure Start Time: 6:17 PM Incision Close/Procedure End Time: Surgeon(s)/Proceduralist(s ) and Outbound Sales Specialist(s): Surgeon(s) and Role: * David Andrews MD - Primary * Gt Mcgowan MD - Resident - Assisting Procedure(s): Cystourethroscopy Clot evacuation Cystolitholapaxy TURP Anesthesia: General Findings: 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; bugbee fulgurated then eventually resected Right lateral lobe, fulgurated extensively B/L ureteral orifices uninjured 22Fr 3w hernandez on traction, CBI initiated Estimated Blood Loss: 10 mls Specimens: ID Type Source Tests Collected by Time Destination 1 : bladder stone Calculus CALCULI/CALCULUS CALCULI ANALYSIS David Andrews MD 08/28/2022 7:28 PM A : Tissue PROSTATE TISSUE (CHIPS) SURGICAL PATHOLOGY David Andrews MD 08/28/2022 6:54 PM B : #2 Tissue PROSTATE TISSUE (CHIPS) SURGICAL PATHOLOGY David Andrews MD 08/28/2022 6:55 PM Complications: None Pre-Op/Pre-Procedure Diagnosis: gross hematuria, clot retention Post-Op/Post-Procedure Diagnosis: same SIGNATURE: Gt Mcgowan MD PATIENT NAME: Olaf Briones DATE: August 28, 2022 TIME: 7:48 PM PAGER/CONTACT #: p [phone] Post-op Plan: To SICU Normal [facility] Basic metabolic 2000 panelon 08-28-2022 Anion gap [Moles/Vol] 9 mmol/L Normal 9-18 [facility] Comment on above: Order Comment: Speci men Type: BLOOD SPECIMENOrdering Facility: [facility] Address: [address] [place] [address] Performed By: #### 2 4321-2 ####[facility] [id number] [place] [address] [place] Calcium [Mass/Vol] 8.8 mg/dL Normal 8.5-10.2 [facility] Comment on above: Order Comment: Speci men Type: BLOOD SPECIMENOrdering Facility: [facility] Address: [address] [address] Performed By: #### 2 4321-2 ####[facility] LABIA [id number] [place] [address] [place] Chloride [Moles/Vol] 108 mmol/L High 97-105 [facility] Comment on above: Order Comment: Speci men Type: BLOOD SPECIMENOrdering Facility: [facility] Address: [address] [address] Performed By: #### 2 4321-2 ####[facility] LABCLIA [id number] [place] [address] [place] CO2 [Moles/Vol] 24 mmol/L Normal 22-30 [facility] Comment on above: Order Comment: Speci men Type: BLOOD SPECIMENOrdering Facility: [facility] Address: [address] [place] [address] Performed By: #### 2 4321-2 ####[facility] LABIA [id number] [address] [place] Creatinine [Mass/Vol] 0.79 mg/dL Normal 0.73-1.22 [facility] Comment on above: Order Comment: Speci men Type: BLOOD SPECIMENOrdering Facility: [facility] Address: [address] [place] [address] Performed By: #### 2 4321-2 ####[facility] LABIA [id number] [address] STATES OF [facility] ESTIMATED GLOMERULAR FILTRATION RATE 91 mL/min/1.73m??? Normal >=60 [facility] Comment on above: Order Comment: Speci men Type: BLOOD SPECIMENOrdering Facility: [facility] Address: [address] [place] [address] Result Comment: Mariaelena mated Glomerular Filtration Rate (eGFR) is calculated using the 2020 CKD-EPI creatinine equation. This equation utilizes serum creatinine, sex, and age as parameters. The creatinine assay has traceable calibration to isotope dilution-mass spectrometry. Refer to KDIGO guidelines for clinical interpretation. In patients with unstable renal function, e.g. those with acute kidney injury, the eGFR may not accurately reflect actual GFR. Performed By: #### 2 4321-2 ####[facility] LABCLIA [id number] [place] [address] [place] Glucose [Mass/Vol] 137 mg/dL High 74-99 [facility] Comment on above: Order Comment: Speci men Type: BLOOD SPECIMENOrdering Facility: [facility] Address: [address] [id number] Result Comment: The [place] Diabetes Association (ADA) provides guidance for cutoff values for fasting glucose and random glucose. The ADA defines fasting as no caloric intake for at least 8 hours. Fasting plasma glucose results between 100 to 125 mg/dL indicate increased risk for diabetes (prediabetes). Fasting plasma glucose results greater than or equal to 126 mg/dL meet the criteria for diagnosis of diabetes. In the absence of unequivocal hyperglycemia, results should be confirmed by repeat testing. In a patient with classic symptoms of hyperglycemia or hyperglycemic crisis, random plasma glucose results greater than or equal to 200 mg/dL meet the criteria for diagnosis of diabetes. Reference: Standards of Medical Care in Diabetes 2016, [place] Diabetes Association. Diabetes Care. 2016.39(Suppl 1). Performed By: #### 2 4321-2 ####[facility] LABCLIA [id number] [place] [address] [place] Potassium [Moles/Vol] 4.0 mmol/L Normal 3.7-5.1 [facility] Comment on above: Order Comment: Speci men Type: BLOOD SPECIMENOrdering Facility: [facility] Address: [address] [place], [place] [address] Performed By: #### 2 4321-2 ####[facility] LABCLIA [id number] [place] [address] [place] Sodium [Moles/Vol] 141 mmol/L Normal 136-144 [facility] Comment on above: Order Comment: Speci men Type: BLOOD SPECIMENOrdering Facility: [facility] Address: [address] [phone] Performed By: #### 2 4321-2 ####[facility] LABCLIA [id number] [place] [address] [place] Urea nitrogen [Mass/Vol] 18 mg/dL Normal 9-24 [facility] Comment on above: Order Comment: Speci men Type: BLOOD SPECIMENOrdering Facility: [facility] Address: [address] [address] Performed By: #### 2 4321-2 ####[facility] [id number] [address] [place] CALCULI ANALYSISon 3 Calculus analysis [Interp] Normal [facility] Comment on above: Order Comment: Speci men Type: CALCULUS SPECIMENOrdering Facility: [facility] Address: [address] [place] [address] Result Comment: This test was developed and its performance characteristics determined by [facility]'s [facility] Pathology and Laboratory Medicine [place] ([facility]). It has not been cleared or approved by the FDA. -[facility] is regulated under CLIA as qualified to perform high-complexity testing. This test is used for clinical purposes. It should not be regarded as investigational or for research. Performed By: #### C SA ####[facility] [id number] [address] [place] CALCULUS COLOR BROWN Normal [facility] Comment on above: Order Comment: Speci men Type: CALCULUS SPECIMENOrdering Facility: [facility] Address: [address] [place] [address] Performed By: #### C SA ####[facility] [id number] [address] [place] CALCULUS COMPOSITION 1 50% Calcium Oxala te Monohydrate Normal [facility] Comment on above: Order Comment: Speci men Type: CALCULUS SPECIMENOrdering Facility: [facility] Address: [address] [place] [address] Performed By: #### C SA ####[facility] [id number] [address] [place] CALCULUS COMPOSITION 2 40% Calcium Oxala te Dihydrate Normal [facility] Comment on above: Order Comment: Speci men Type: CALCULUS SPECIMENOrdering Facility: [facility] Address: [address] [place] [address] Performed By: #### C SA ####[facility] LABIA [id number] [address] CALCULUS COMPOSITION 3 10% Minor Components Normal [facility] Comment on above: Order Comment: Speci men Type: CALCULUS SPECIMENOrdering Facility: [facility] Address: [address] [place] [address] Performed By: #### C SA ####[facility] [id number] [address] [place] CALCULUS SIZE AND WT 0.4 X 0.3 X 0.1 CM 0.0163 GRAMS Normal [facility] Comment on above: Order Comment: Speci men Type: CALCULUS SPECIMENOrdering Facility: [facility] Address: [address] [place] [address] Performed By: #### C SA ####[facility] [id number] [address] [place] CALCULUS TYPE Calculus, CALCULI/CALCULUS Normal [facility] Comment on above: Order Comment: Speci men Type: CALCULUS SPECIMENOrdering Facility: [facility] Address: [address] [place] [address] Performed By: #### C SA ####[facility] [id number] [address] [place] CBC panel Auto (Bld)on 08-28 Erythrocyte distribution width (RBC) [Ratio] 12.7 % Normal 11.5-15.0 [facility] Comment on above: Order Comment: Speci men Type: BLOOD SPECIMENOrdering Facility: [facility] Address: [address] [place] [address] Performed By: #### 5 8410-2 ####[facility] [id number] [address] [place] Hematocrit (Bld) [Volume fraction] 35.7 % Low 39.0-51.0 [facility] Comment on above: Order Comment: Speci men Type: BLOOD SPECIMENOrdering Facility: [facility] Address: [address] [place] [address] Performed By: #### 5 8410-2 ####[facility] LABCLIA [id number] [address] [place] Hemoglobin (Bld) [Mass/Vol] 12.1 g/dL Low 13.0-17.0 [facility] Comment on above: Order Comment: Speci men Type: BLOOD SPECIMENOrdering Facility: [facility] Address: [address] [place] [address] Performed By: #### 5 8410-2 ####[facility] LABCLIA [id number] [address] MCH (RBC) [Entitic mass] 31.8 pg Normal 26.0-34.0 [facility] Comment on above: Order Comment: Speci men Type: BLOOD SPECIMENOrdering Facility: [facility] Address: [address] [place], [place] [id number] Performed By: #### 5 8410-2 ####[facility] LABCLIA [id number] [address] STATES OF [facility] MCHC (RBC) [Mass/Vol] 33.9 g/dL Normal 30.5-36.0 [facility] Comment on above: Order Comment: Speci men Type: BLOOD SPECIMENOrdering Facility: [facility] Address: [address] [place], [place] [address] Performed By: #### 5 8410-2 ####[facility] LABCLIA [id number] [address] [place] MCV (RBC) [Entitic vol] 93.7 fL Normal 80.0-100.0 C [facility] Comment on above: Order Comment: Speci men Type: BLOOD SPECIMENOrdering Facility: [facility] Address: [address] Performed By: #### 5 8410-2 ####[facility] LABIA [id number] [place] [address] [place] Nucleated RBC (Bld) [#/Vol] 10*3/uL Normal <0.01 [facility] Comment on above: Order Comment: Speci men Type: BLOOD SPECIMENOrdering Facility: [facility] Address: [address] Performed By: #### 5 8410-2 ####[facility] LABIA [id number] [place] [address] [place] Platelet mean volume (Bld) [Entitic vol] 11.3 fL Normal 9.0-12.7 [facility] Comment on above: Order Comment: Speci men Type: BLOOD SPECIMENOrdering Facility: [facility] Address: [address] Performed By: #### 5 8410-2 ####[facility] LABIA [id number] [place] [address] [place] Platelets (Bld) [#/Vol] 179 10*3/uL Normal 150-400 [facility] Comment on above: Order Comment: Speci men Type: BLOOD SPECIMENOrdering Facility: [facility] Address: [address] Performed By: #### 5 8410-2 ####[facility] LABIA [id number] [place] [address] [place] RBC (Bld) [#/Vol] 3.81 10*6/uL Low 4.20-6.00 [facility] Comment on above: Order Comment: Speci men Type: BLOOD SPECIMENOrdering Facility: [facility] Address: [address] [place], [place] [address] Performed By: #### 5 8410-2 ####[facility] LABCLIA [id number] [place] [address] [place] WBC (Bld) [#/Vol] 16.02 10*3/uL High 3.70-11.00 [facility] Comment on above: Order Comment: Speci men Type: BLOOD SPECIMENOrdering [facility] Address: [address] [place], [place] [address] Performed By: #### 5 8410-2 ####[facility] LABIA [id number] [place] [address] [place] Erythrocyte distribution width (RBC) [Ratio] 12.8 % Normal 11.5-15.0 [facility] Comment on above: Order Comment: Speci men Type: BLOOD SPECIMENOrdering Facility: [facility] Address: [address] [place], [place] [address] Performed By: #### 5 8410-2 ####[facility] LABIA [id number] [address] [place] Hematocrit (Bld) [Volume fraction] 32.6 % Low 39.0-51.0 [facility] Comment on above: Order Comment: Speci men Type: BLOOD SPECIMENOrdering Facility: [facility] Address: [address] [place], [place] [address] Performed By: #### 5 8410-2 ####[facility] LABIA [id number] [place] [address] [place] Hemoglobin (Bld) [Mass/Vol] 11.1 g/dL Low 13.0-17.0 [facility] Comment on above: Order Comment: Speci men Type: BLOOD SPECIMENOrdering Facility: [facility] Address: [address] [place], [place] [address] Performed By: #### 5 8410-2 ####[facility] LABIA [id number] MCH (RBC) [Entitic mass] 31.6 pg Normal 26.0-34.0 [facility] Comment on above: Order Comment: Speci men Type: BLOOD SPECIMENOrdering Facility: [facility] Address: [address] [place] [address] Performed By: #### 5 8410-2 ####[facility] LABCLIA [id number] [address] STATES [facility] MCHC (RBC) [Mass/Vol] 34.0 g/dL Normal 30.5-36.0 [facility] Comment on above: Order Comment: Speci men Type: BLOOD SPECIMENOrdering Facility: [facility] Address: [address] [place] [address] Performed By: #### 5 8410-2 ####[facility] LABCLIA [id number] [address] OF [place] MCV (RBC) [Entitic vol] 92.9 fL Normal 80.0-100.0 [facility] Comment on above: Order Comment: Speci men Type: BLOOD SPECIMENOrdering Facility: [facility] Address: [address] [place] [address] Performed By: #### 5 8410-2 ####[facility] LABCLIA [id number] [address] [place] Nucleated RBC (Bld) [#/Vol] 10*3/uL Normal <0.01 [facility] Comment on above: Order Comment: Speci men Type: BLOOD SPECIMENOrdering Facility: [facility] Address: [address] [place], [place] [id number] Performed By: #### 5 8410-2 ####[facility] LABCLIA [id number] [address] [place] Platelet mean volume (Bld) [Entitic vol] 11.2 fL Normal 9.0-12.7 [facility] Comment on above: Order Comment: Speci men Type: BLOOD SPECIMENOrdering Facility: [facility] Address: [address] [place] [address] Performed By: #### 5 8410-2 ####[facility] LABIA [id number] [address] OF [facility] Platelets (Bld) [#/Vol] 172 10*3/uL Normal 150-400 [facility] Comment on above: Order Comment: Speci men Type: BLOOD SPECIMENOrdering Facility: [facility] Address: [address] [place] [address] Performed By: #### 5 8410-2 ####[facility] LABIA [id number] [address] STATES OF [facility] RBC (Bld) [#/Vol] 3.51 10*6/uL Low 4.20-6.00 [facility] Comment on above: Order Comment: Speci men Type: BLOOD SPECIMENOrdering Facility: [facility] Address: [address] [place] [address] Performed By: #### 5 8410-2 ####[facility] LABIA [id number] [address] OF [facility] WBC (Bld) [#/Vol] 11.53 10*3/uL High 3.70-11.00 [facility] Comment on above: Order Comment: Speci men Type: BLOOD SPECIMENOrdering Facility: [facility] Address: [address] [place], [place] [address] Performed By: #### 5 8410-2 ####[facility] [id number] [address] OF [facility] CONSULT PROGon 08-28-2022 CONSULT PROG HNO ID: [id number] Author: Uzma Bates MD Service: Cardiovascular Medicine Author Type: Physician Type: Consult Progress Note Filed: 08/28/2022 3:21 PM Note Text: [facility] CONSULT PROGRESS NOTE CONSULTING SERVICE: Cardiology: Consult Team PRIMARY SERVICE: Urology HOSPITAL DAY: #1 SUBJECTIVE -No acute events noted overnight -Remains on DAPT for recent JUHI to prox RCA -Continues on CBI, urine remains blood tinged -Hgb downtrending 13.4-->11.1 -WBC downtrending 16-->11.5, continues on IV zosyn -Denies any cardiac complaints -Denies any further episodes of dizziness since yesterday morning -ECHO this AM shows preserved biventricular function with no significant valvular abnormalities -Plan for OR with urology today for fulguration Telemetry: NSR with PACs OBJECTIVE MEDICATIONS: Current Facility-Administered Medications Medication Dose Route Frequency docusate sodium 100 mg cap(s) (COLACE) 100 mg ORAL BID NaCl 0.9% iv flush bag 20 mL INTRAVENOUS PRN lactated ringers iv infusion 75 mL/hr INTRAVENOUS CONTINUOUS acetaminophen 650 mg tab(s) (TYLENOL) 650 mg ORAL q 4 H PRN oxyCODONE IR 5 mg tab(s) (ROXICODONE) 5 mg ORAL q 6 H PRN ondansetron (PF) 4 mg injection (ZOFRAN) 4 mg INTRAVENOUS q 6 H PRN melatonin 3 mg tab(s) 3 mg ORAL AT BEDTIME PRN docusate sodium 100 mg cap(s) (COLACE) 100 mg ORAL BID PRN allopurinol 300 mg tab(s) (ZYLOPRIM) 300 mg ORAL DAILY amLODIPine 5 mg tab(s) (NORVASC) 5 mg ORAL DAILY aspirin 81 mg chewable tab(s) 81 mg ORAL DAILY atorvastatin 80 mg tab(s) (LIPITOR) 80 mg ORAL AT BEDTIME carvedilol 6.25 mg tab(s) (COREG) 6.25 mg ORAL BID w MEALS ticagrelor 90 mg tab(s) (BRILINTA) 90 mg ORAL BID piperacillin-tazobactam iv piggyback 3.375 g in dextrose (iso-osmotic) 50 mL (ZOSYN) 3.375 g INTRAVENOUS q 6 H sodium chloride 0.9 % (flush) 2-10 mL (BD POSIFLUSH) 2-10 mL INTRAVENOUS DIRECTED PRN And perflutren lipid microspheres 1.1 mg/mL 1.3 mL injection (DEFINITY) 1.3 mL INTRAVENOUS DIRECTED PRN PHYSICAL EXAM: 08/27/22203608/28/22 0106 08/28/22 0523 08/28/22 0927 BP: 124/66 98/56 116/57 129/70 Pulse: 71 68 69 72 Resp: 16 16 18 18 Temp: 37 ?C (98.6 ?F) 36.7 ?C (98.1 ?F) 36.5 ?C (97.7 ?F) 36.7 ?C (98.1 ?F) TempSrc: Oral Oral Oral Oral SpO2: 98% 95% 97% 98% Weight: Height: General Appearance: Well developed, Well nourished , and No acute distress HEENT: EOM's intact and Sclera white Lungs: Clear and Respiratory effort: normal Heart: Regular rate AND rhythm Abdomen: Soft, Round, and Non-tender Skin: Warm and Dry Musculoskeletal: No deformities Neurologic/Psychiatric: Oriented to time, place AND person : blood tinged urine Intake/Output Summary (Last 24 hours) at 08/28/2022 1213 Last data filed at 08/28/2022 1045 Gross per 24 hour Intake 51892.5 ml Output 17350 ml Net -15895.5 ml TELEMETRY: DATA: Laboratory: Recent Labs 08/28/22 0805 08/27/22 0710 WBC 11.53* 16.24* HB 11.1* 13.4 HCT 32.6* 38.5* PLT 172 214 NA 141 140 K 4.0 4.3 CHLOR 108* 105 CO2 24 22 BUN 18 17 CREAT 0.79 0.79 GLUC 137* 197* Recent Labs 08/27/22 0710 INR 1.0 ASSESSMENT / RECOMMENDATIONS / PLAN Olaf Briones is a 77M with a past medical hx of STEMI s/p JUHI to prox RCA 08/20/22 (on ASA and Brilinta), CAD with 50-70% mid to distal LAD disease, HTN, HLD, DM, nephrolithiasis s/p ESWL (2000) and TURP (2006) who presented to [facility] ED 08/26/22 for development of gross hematuria with lower pelvic pain x2 days. He was found to have elevated WBC with + UA, and started on IV atbx. He was transferred to [facility] 08/27 for further management. He was continued on continuous bladder irrigation via hernandez catheter. On the morning of 08/27, he had a near syncopal episode after standing up from bed. He began to feel dizzy and BP was noted to be 60/34 with HR 76. AMET was called. Patient was returned to bed after which he began to feel better with rise in BP to 119/75. Cardiology was subsequently consulted for hypotension. Dr. Bates reviewed OSH TTE that appeared to show normal biventricular function. Patient appeared euvolemic on exam, so cardiology recommended volume resuscitation for possible element on orthostasis, and repeated formal TTE here. In setting of recent inferolateral STEMI s/p PCI on 08/20/22, cardiology recommended continuing DAPT despite gross hematuria. On 08/28, pt had drop in Hgb from 13.4-->11.1. Urology planning on taking to OR for bladder fulguration. Urology requested cardiac risk assessment prior to OR. EKG showed NSR 68. ECHO 08/28 showed preserved biventricular function without significant valvular abnormalities. Patient's RCRI score is 1 for hx of VT, making him a class II risk. This equates to a 6.0% 30-day risk of , VT, or cardiac arrest. Pt denies any cardiac complaints. Per Dr. Bates, no absolute contraindication to proceeding with urologic p (more content not included)... Normal [facility] Comprehensive metabolic 2000 panelon 08-28-2022 Albumin [Mass/Vol] 4.1 g/dL Normal 3.9-4.9 [facility] Comment on above: Order Comment: Speci men Type: BLOOD SPECIMENOrdering Facility: [facility] Address: [address] [id number] Performed By: #### 1 9123-9, 79139-0, 2777-1 ####[facility] LABCLIA [id number] [place] [address] [place] ALP [Catalytic activity/Vol] 119 U/L High 38-113 [facility] Comment on above: Order Comment: Speci men Type: BLOOD SPECIMENOrdering Facility: [facility] Address: [address] [place] [address] Performed By: #### 1 9123-9, 55202-6, 277- ####[facility] LABCLIA [id number] [place] [address] [place] ALT [Catalytic activity/Vol] 23 U/L Normal 10-54 [facility] Comment on above: Order Comment: Speci men Type: BLOOD SPECIMENOrdering Facility: [facility] Address: [address] [place] [address] Performed By: #### 1 9123-9, 91312-3, 277- ####[facility] LABIA [id number] [place] [address] [place] Anion gap [Moles/Vol] 10 mmol/L Normal 9-18 [facility] Comment on above: Order Comment: Speci men Type: BLOOD SPECIMENOrdering Facility: [facility] Address: [address] [place] [address] Performed By: #### 1 9123-9, , 2776-02 ####[facility] LABIA [id number] [place] [address] [place] AST [Catalytic activity/Vol] 21 U/L Normal 14-40 [facility] Comment on above: Order Comment: Speci men Type: BLOOD SPECIMENOrdering Facility: [facility] Address: [address] [place] [address] Performed By: #### 1 9123-9, 57363-8, 2776- ####[facility] LABIA [id number] [place] [address] [place] Bilirubin [Mass/Vol] 1.1 mg/dL Normal 0.2-1.3 [facility] Comment on above: Order Comment: Speci men Type: BLOOD SPECIMENOrdering Facility: [facility] Address: [address] [place] [address] Performed By: #### 1 9123-9, 30417-0, 277-1 ####[facility] LABCLIA [id number] [place] [address] [place] Calcium [Mass/Vol] 9.1 mg/dL Normal 8.5-10.2 [facility] Comment on above: Order Comment: Speci men Type: BLOOD SPECIMENOrdering Facility: [facility] Address: [address] [place] [address] Performed By: #### 1 9123-9, 96323-1, 277- ####[facility] LABCLIA [id number] [place] [address] [place] Chloride [Moles/Vol] 105 mmol/L Normal 97-105 [facility] Comment on above: Order Comment: Speci men Type: BLOOD SPECIMENOrdering Facility: [facility] Address: [address] [place] [address] Performed By: #### 1 9123-9, , 277- ####[facility] LABCLIA [id number] [place] [address] [place] CO2 [Moles/Vol] 24 mmol/L Normal 22-30 [facility] Comment on above: Order Comment: Speci men Type: BLOOD SPECIMENOrdering Facility: [facility] Address: [address] [place] [address] Performed By: #### 1 9123-9, 75287-8, 277- ####[facility] LABCLIA [id number] [place] [address] [place] Creatinine [Mass/Vol] 0.76 mg/dL Normal 0.73-1.22 [facility] Comment on above: Order Comment: Speci men Type: BLOOD SPECIMENOrdering Facility: [facility] Address: [address] [place] [address] Performed By: #### 1 9123-9, 25864-9, 2777- ####[facility] LABCLIA [id number] [place] [id number] [place] ESTIMATED GLOMERULAR FILTRATION RATE 93 mL/min/1.73m??? Normal >=60 [facility] Comment on above: Order Comment: Portia tay Type: BLOOD SPECIMENOrdering Facility: [facility] Address: [address] Result Comment: Mariaelena mated Glomerular Filtration Rate (eGFR) is calculated using the 2020 CKD-EPI creatinine equation. This equation utilizes serum creatinine, sex, and age as parameters. The creatinine assay has traceable calibration to isotope dilution-mass spectrometry. Refer to KDIGO guidelines for clinical interpretation. In patients with unstable renal function, e.g. those with acute kidney injury, the eGFR may not accurately reflect actual GFR. Performed By: #### 1 9123-9, 05663-5, 2776- ####[facility] LABCLIA [id number] [place] [address] [place] Glucose [Mass/Vol] 147 mg/dL High 74-99 [facility] Comment on above: Order Comment: Portia tay Type: BLOOD SPECIMENOrdering Facility: [facility] Address: [address] [place] [address] Result Comment: The [place] Diabetes Association (ADA) provides guidance for cutoff values for fasting glucose and random glucose. The ADA defines fasting as no caloric intake for at least 8 hours. Fasting plasma glucose results between 100 to 125 mg/dL indicate increased risk for diabetes (prediabetes). Fasting plasma glucose results greater than or equal to 126 mg/dL meet the criteria for diagnosis of diabetes. In the absence of unequivocal hyperglycemia, results should be confirmed by repeat testing. In a patient with classic symptoms of hyperglycemia or hyperglycemic crisis, random plasma glucose results greater than or equal to 200 mg/dL meet the criteria for diagnosis of diabetes. Reference: Standards of Medical Care in Diabetes 2016, [place] [employer] Association. Diabetes Care. 2016.39(Suppl 1). Performed By: #### 1 9123-9, 19332-0, 7- ####[facility] LABCLIA [id number] [place] [id number] [place] Potassium [Moles/Vol] 4.2 mmol/L Normal 3.7-5.1 [facility] Comment on above: Order Comment: Speci men Type: BLOOD SPECIMENOrdering Facility: [facility] Address: [address] [place] [address] Performed By: #### 1 9123-9, 96611-8, 2776-1 ####[facility] LABCLIA [id number] [place] [address] [place] Protein [Mass/Vol] 6.6 g/dL Normal 6.3-8.0 [facility] Comment on above: Order Comment: Speci men Type: BLOOD SPECIMENOrdering Facility: [facility] Address: [address] [place] [address] Performed By: #### 1 9123-9, 37567-2, 2776- ####[facility] LABCLIA [id number] [place] [address] [place] Sodium [Moles/Vol] 139 mmol/L Normal 136-144 [facility] Comment on above: Order Comment: Speci men Type: BLOOD SPECIMENOrdering Facility: [facility] Address: [address] [place], [place] [address] Performed By: #### 1 9123-9, 52050-3, 2776- ####[facility] LABCLIA [id number] [place] [address] [place] Urea nitrogen [Mass/Vol] 14 mg/dL Normal 9-24 [facility] Comment on above: Order Comment: Speci men Type: BLOOD SPECIMENOrdering Facility: [facility] Address: [address] [place], [place] [address] Performed By: #### 1 9123-9, 23009-5, 2776- ####[facility] LABCLIA [id number] [address] [address] [place] ECHOon 08-28-2022 Echocardiography Echocardiography Rep ort: Transthoracic Echo [facility] Bedside Date of service: 08/28/2022 9:45:03 AM SYSTEMS ANALYST Ordering physician: DAVID ANDREWS Indication: Evaluation of ventricular function following ACS Technologist: Paloma Figueredo Interpreting physician: Pantera Lee MD PATIENT: Name: OLAF BRIONES : 1945 Age: 77 years Gender: M History of coronary artery disease. Previous cardiovascular interventions: PCI (2022) Primary rhythm: sinus. Height: 173.00 cm BSA: 1.90 m Weight: 75.50 kg BMI: 25.2 kg/m Heart rate 75 bpm Blood pressure 116/57 mmHg Color Doppler was utilized to interrogate the cardiac valves assessed and spectral Doppler was utilized to determine the flow velocities and pressure gradients reported in this exam. MEASUREMENTS: Value Indexed Normal Max aortic dimension 3.2 cm Ao < 3.8 Left atrial volume 41 ml (biplane A-L) 22 ml/m Willis <= 34 LV ID (diastole) 4.7 cm (2D) 2.45 cm/m LV ID (systole) 3.2 cm (2D) 1.67 cm/m IVS, leaflet tips 1.0 cm (2D) Posterior wall thickness 1.0 cm (2D) Left ventricular mass 164 g (2D) 86 g/m LV stroke volume 51 ml (2D biplane) LV end diastolic volume 93 ml (2D biplane) 49.0 ml/m 34<=EDVi<75 LV end systolic volume 42 ml (2D biplane) 22.3 ml/m Ejection Fraction 55 % (2D biplane) EF > 52 FINDINGS: LEFT VENTRICLE The left ventricle is normal in size. Left ventricular systolic function is normal. Grade I left ventricular diastolic dysfunction. Mitral annular lateral E/e': 7.9. Mitral annular septal E/e': 12.7. Wall Motion: The basal inferior segment and basal inferoseptal segment are mildly hypokinetic. All remaining scored segments are normal. RIGHT VENTRICLE The right ventricle is normal in size. Right ventricular systolic function is normal. RV systolic tissue Doppler velocity is 14.0 cm/s. Estimated right ventricular systolic pressure is not reported due to an insufficient tricuspid regurgitation signal. Estimated right atrial pressure is 3 mmHg (although IVC not seen). LEFT ATRIUM The left atrial cavity is normal in size. RIGHT ATRIUM The right atrial cavity is normal in size. Inferior Vena Cava: The inferior vena cava appears normal measuring 1.3 cm. MITRAL VALVE There is trace mitral valve regurgitation. There is mild thickening. The pressure half time is 66 msec. The peak mitral E/A ratio is 0.95. The average mitral E/e' ratio is 10.3. The mitral flow deceleration time is 227 msec. TRICUSPID VALVE The tricuspid valve leaflets are structurally normal. There is trace tricuspid valve regurgitation. AORTIC VALVE There is no aortic valve regurgitation. Tricuspid aortic valve. There is no thickening. PULMONIC VALVE There is trace pulmonic valve regurgitation. There is no thickening. AORTA The visualized aorta is normal in size. Measurements - Mid ascending aorta 3.2 cm. PULMONARY ARTERIES The pulmonary arteries are normal. INTERATRIAL SEPTUM There is no evidence of intracardiac shunting as detected by Doppler. INTERVENTRICULAR SEPTUM There is no flow through the interventricular septum as detected by Doppler. PERICARDIUM There is no pericardial effusion. There is an epicardial fat pad. CONCLUSIONS: - Exam indication: Evaluation of ventricular function following ACS - The left ventricle is normal in size. Left ventricular systolic function is normal. EF = 55 5% (2D biplane) Grade I left ventricular diastolic dysfunction. - The right ventricle is normal in size. Right ventricular systolic function is normal. - Estimated right ventricular systolic pressure is not reported due to an insufficient tricuspid regurgitation signal. Estimated right atrial pressure is 3 mmHg (although IVC not seen). - The patient has not had a prior CC echocardiographic exam for comparison. * * * Final * * * [employer] Medical Image : [id number] Normal [facility] HISTORY PHYSICALon HISTORY PHYSICAL HNO ID: [id number] Author: Earnest Portillo MD Service: Critical Care Author Type: Physician Type: HANDP Filed: 08/28/2022 10:48 PM Note Text: SERVICE DATE: 08/28/2022 SERVICE TIME: 9:49 PM SICU HANDP NOTE HPI: Olaf Briones is a 77 year old male with PMHx of recent STEMI on 08/20/22 (s/p JUHI),HTN, HLD, DM, nephrolithiasis, transferred from [facility] for gross hematuria. He is now s/p Cystourethroscopy, clot evacuation, cystolitholapaxy, and TURP on 08/28. Intraoperative course: Airway - LMA, 2 PIV, was on golden gtt in OR, received 600 cc crystalloids, no blood products given. Per surgical team there was a significant amount of irrigation done. He was transported to SICU on nasal cannula. He was admitted to SICU for close monitoring given his recent STEMI s/p JUHI. Subjective No past medical history on file. No past surgical history on file. No family history on file. Social History Occupational History Not on file Tobacco Use Smoking status: Not on file Smokeless tobacco: Not on file Substance and Sexual Activity Alcohol use: Not on file Drug use: Not on file Sexual activity: Not on file ALLERGIES Allergen Reactions Albuterol Other: See Comments Hydrochlorothiazide Rash PRIOR TO ADMISSION MEDICATIONS: allopurinol (ZYLOPRIM) 300 mg tablet, Take 300 mg by mouth once daily., Disp: , Rfl: amLODIPine (NORVASC) 5 mg tablet, Take 5 mg by mouth once daily., Disp: , Rfl: carvedilol (COREG) 6.25 mg tablet, Take 6.25 mg by mouth twice daily with meals., Disp: , Rfl: ticagrelor (BRILINTA) 90 mg tablet, Take 90 mg by mouth twice daily., Disp: , Rfl: aspirin, enteric coated (ASPIRIN, ENTERIC COATED) 81 mg EC tablet, Take 81 mg by mouth once daily., Disp: , Rfl: lisinopril 2.5 mg tablet, Take 2.5 mg by mouth once daily., Disp: , Rfl: diclofenac, EC, (VOLTAREN) 75 mg EC tablet, Take 75 mg by mouth twice daily., Disp: , Rfl: nitroglycerin sublingual (NITROQUICK) 0.4 mg SL tablet, Dissolve 0.4 mg under the tongue every 5 minutes as needed for chest pain., Disp: , Rfl: REVIEW OF SYSTEMS: PAIN ASSESSMENT: Negative for pain, history of chronic pain, or current treatment for a chronic pain condition. Denies current pain, denies nausea. All other ROS was negative Objective Admission Weight: Weight: 75.5 kg (166 lb 7.2 oz) VITAL SIGNS BP 140/64 Pulse 64 Temp (Src) 98.1 (Oral) Resp 17 Ht 5' 8.11 (1.73m) Wt 185 lb 3 oz (84.0kg) SpO2 100% BMI 28.07 kg/(m2). O2 Therapy: Nasal Cannula, Liters: 2 lactated Ringers, Last Rate: 75 mL/hr (08/28/222143) RESPIRATORY Mechanical Ventilation: No, on supplemental O2 PHYSICAL EXAM Neuro: Awake, Follows commands, Alert, and Moving all extremities Pulmonary: Clear to auscultation. Breath Sounds Equal: Yes Cardiovascular: Regular rhythm Abdomen: Soft and Positive bowel sounds Extremities: Edema- No Peripheral pulses- Present all extremities Wounds/Drsgs- Yes DATA: Diagnostic tests reviewed for today's visit: Most recent labs and imaging results. ICU Checklist Last Documented/Reviewed time: 08/28/2022 9:32 PM A= Assess, Prevent, Manage Pain Pain adequately controlled?: Yes C= Choice of Sedation and Analgesia RASS at Goal?: Yes B= Both Spontaneous Awakening and Breathing Trials Ventilator: None D= Delirium: Assess, Prevent and Manage ICU Delirium Status: CAM Negative - no action required Sleep adequate?: Yes Restraint Status: None E= Early Mobility/Excercise ICU Mobility: ICU Mobility-Pt Has Been Out of Bed: PT/OT Consults Ordered F= Family Engagement and Empowerment ICU plan of care visit at bedside in last 24 hours: Yes, Provider, RN, Patient/ designee ICU Disposition: ICU Disposition- Is Patient Clinically Ready to Transfer to [facility] or SDU?: No Discharge Planning: To be determined Prevention: Line Status: None Hernandez Status: Present, will maintain Hernandez Status Details: Surgery related/surgical need Pressure Injury Status: None GI/Stress Ulcer Prophylaxis: None - not required Nutrition is at Goal: Advancing to goal VTE Prophylaxis: Chemoprophylaxis: No chemoprophylaxis Mechanical Prophylaxis: Knee high SCD No Chemoprophylaxis Reason: Bleeding risk Assessment AND Plan Cardiovascular Primary hypertension On home amlodipine, carvedilol, lisinopril Plan -Holding home meds immediately post-op -Re-assess on POD1 and re-add home meds if HDS Myocardial infarction (HCC) recent STEMI on 08/20/22 s/p JUHI Plan -Continue DAPT with ASA and ticagrelor Coronary artery disease involving round valley coronary artery of round valley heart without angina pectoris recent STEMI on 08/20/22 s/p JUHI Plan -Continue DAPT with ASA and ticagrelor Endocrinology Type 2 diabetes mellitus without complication, without long-term current use of insulin (HCC) No (more content not included)... Normal [facility] Magnesium SerPl-mCncon 08-28 Magnesium [Mass/Vol] 2.1 mg/dL Normal 1.7-2.3 [facility] Comment on above: Order Comment: Speci men Type: BLOOD SPECIMENOrdering Facility: [facility] Address: [address] [place] [address] Performed By: #### 1 9123-9, 15912-6, 2777-1 ####[facility] LABCLIA [id number] [place] [address] [place] OPERATIVE NOon 08-28-2022 OPERATIVE NO HNO ID: [id number] Author: David Andrews MD Service: Urology Author Type: Physician Type: Operative Report Filed: 08/28/2022 8:20 PM Note Text: OPERATIVE/PROCEDURE REPORT LOG ID: [id number] Surgery/Procedure Date: 08/28/2022 Incision/Procedure Start Time: 6:17 PM Incision Close/Procedure End Time: 7:50 PM Surgeon(s)/Proceduralist(s ) and Outbound Sales Specialist(s): Surgeon(s) and Role: * David Andrews MD - Primary * Gt Mcgowan MD - Resident - Assisting Procedure(s): Cystourethroscopy Clot evacuation Cystolitholapaxy TURP Anatomic Site: Prostate, bladder, urethra Approach: Endoscopic Anesthesia: General Operative Indications: This is a 77 year old male with a history of gross hematuria in the setting of Brillinta and aspirin use following recent STEMI managed with JUHI (08/20/22) with inability to wean continuous bladder irrigation with conservative measures. After discussing the risks, benefits, and alternatives of the procedure has elected to pursue management of their condition via the aforementioned surgery. Procedure Details: The patient was correctly identified and the operative plan was confirmed with the patient and the operative team. A weight appropriate dose of prophylactic antibiotics (Zosyn) was administered intravenously prior to the procedure and sequential compression devices were applied to the lower extremities and activated prior to induction of anesthesia. General anesthesia was induced. The patient was placed in the dorsal lithotomy position. All pressure points were padded per protocol and the operative area was prepped and draped in the standard sterile fashion. The 22Fr cystopanendoscope was advanced per urethra. The urethra was unremarkable, the prostate showed a moderate TURP defect with significant trilobar regrowth at the base of the gland, and the bladder was notable for large volume moderately well-formed clot burden. We attempted to irrigate the clot out through the scope with modest success. We then used the Ellik evacuator to clear out the remaining clot. Once this was cleared out we were able to further assess the bladder, which was notable for no notable mucosal lesions, masses, or nodules with ureteral orifices in orthotopic position bilaterally. We also identified a ~12mm bladder stone. We initially attempted to fulgurate the bladder neck where we noted the most prominent bleeding from the Right lateral lobe intravesical prostatic regrowth with the bugbee electrode, however this was minimally successful. We then removed the scope in exchange for the 24 Fr resectoscope with visual obturator, which was inserted into the meatus and the urethra and bladder. We then resected the intravesical component of the Right lateral lobe, taking care to avoid injury to the Right ureteral orifice. During this resection we noted an area of what appeared to be dystrophic calcification vs incorporation of bladder stone into the prostatic tissue near the bladder neck; this was resected and sent as a separate specimen labeled prostate chips #2 . Once the offending tissue had been resected we fulgurated the area extensively, and at conclusion hemostasis was excellent. We then flushed out the prostatic chips with the scope and the Ellik evacuator. We then addressed the bladder stone, using the cold cup biopsy forceps as a stone welfare eligibility worker to allow for the stone to be extracted through the scope; it was sent off the field as a separate specimen. It was too large to be removed intact. At conclusion the ureteral orifices and the verumonantum were unharmed by the procedure. The loop was reintroduced to fulgurate and return of bleeding. The scope was removed and a 22Fr 3w hernandez catheter was placed. 30cc of water were injected into the balloon, and traction was applied. Continuous bladder irrigation was initiated and titrated to low. The patient tolerated the procedure well, emerged from anesthesia without incident. Due to his significant cardiac risk decision was made to transfer the patient to the SICU. This transport was completed without complication Pre-Op/Pre-Procedure Diagnosis: Pre-Op Diagnosis Codes: * Hematuria [R31.9] Post-Op/Post-Procedure Diagnosis: Post-Op Diagnosis Codes: * Hematuria [R31.9] Estimated Blood Loss: 10 mls Specimens: ID Type Source Tests Collected by Time Destination 1 : bladder stone Calculus CALCULI/CALCULUS CALCULI ANALYSIS David Andrews MD 08/28/2022 7:28 PM A : Tissue PROSTATE TISSUE (CHIPS) SURGICAL PATHOLOGY David Andrews MD 08/28/2022 6:54 PM B : #2 Tissue PROSTATE TISSUE (CHIPS) SURGICAL PATHOLOGY David Andrews MD 08/28/2022 6:55 PM Implantable Devices: None Drains: 22 Fr 3w Hernandez catheter with 30cc water in the balloon Complications: None Qualifier: None Dr. Andrews performed the procedure with assistance Gt Mcgowan MD dictating on behalf of David Andrews MD [facility] STAFF PHYSICIAN NOTE OF PE (more content not included)... Normal [facility] Phosphate SerPl-ncon 08-28 Phosphate [Mass/Vol] 2.9 mg/dL Normal 2.7-4.8 [facility] Comment on above: Order Comment: Speci men Type: BLOOD SPECIMENOrdering Facility: [facility] Address: [address] [place] [id number] Performed By: #### 1 9123-9, 37464-4, 2777-1 ####[facility] LABCLIA [id number] [place] [address] [place] SURGICAL PATHOLOGYon 023 CASE REPORT Normal [facility] Comment on above: Order Comment: Speci men Type: TISSUE SPECIMENOrdering Facility: [facility] Address: [address] [place] [address] Result Comment: Surg ical Pathology Report Case: [id number] Authorizing Provider: David Andrews MD Collected: 08/28/2022 06:54 PM Ordering Location: Admitting Received: 08/29/2022 07:58 AM Pathologist: Gal Poon MD Specimens: A) - PROSTATE TISSUE (CHIPS) B) - PROSTATE TISSUE (CHIPS), #2 Performed By: #### S ####[facility] LABCLIA [id number] [address] OF [place] CLINICAL HISTORY Normal [facility] Comment on above: Order Comment: Speci men Type: TISSUE SPECIMENOrdering Facility: [facility] Address: [address] [place] [address] Result Comment: Pre- op diagnosis: Hematuria [R31.9] Performed By: #### S ####[facility] LABCLIA [id number] [address] FINAL DIAGNOSIS Normal [facility] Comment on above: Order Comment: Speci men Type: TISSUE SPECIMENOrdering Facility: [facility] Address: [address] [place] [address] Result Comment: A. P rostate, transurethral resection: - Benign prostatic hyperplasia. A. 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 Performed By: #### S ####[facility] LABCLIA [id number] [address] [place] FINAL PERFORMING LAB Normal [facility] Comment on above: Order Comment: Speci men Type: TISSUE SPECIMENOrdering Facility: [facility] Address: [address] [address] Result Comment: Diag nostic interpretation performed at [facility], [address] [address] CLIA# [id number] Family Life Educator: Jacob Urias M.D. Performed By: #### S ####[facility] LABCLIA [id number] [address] OF [facility] GROSS DESCRIPTION Normal [facility] Comment on above: Order Comment: Speci men Type: TISSUE SPECIMENOrdering Facility: [facility] Address: [address] [address] Result Comment: A. P ROSTATE TISSUE (CHIPS) Received in formalin on Telfa gauze are multiple segments of irregular chatterjee-brown to chatterjee-pink, firm tissue admixed with red-brown hemorrhagic material aggregating to 8.5 x 2.3 x 0.5, and weighing approximately 3.31 g. Totally submitted in cassette A1. B. PROSTATE TISSUE (CHIPS) Received in formalin are multiple segments of irregular chatterjee to chatterjee-brown, firm tissue aggregating to 0.8 x 0.6 x 0.4 cm, and weighing approximately 0.12 g. Totally submitted in cassette B1. Gross examination performed at [facility], [address] 08/29/2022 2:10 PM Performed By: #### S ####[facility] LABCLIA [id number] [place] [address] [place] VENOUS BLOOD GASES WITH IONI ZED MAGNESIUMon 08-28-2022 BASE DEFICIT, VENOUS -1 mmol/L Normal -2-0 [facility] Comment on above: Order Comment: Speci men Type: VENOUS BLOOD SPECIMENOrdering Facility: [facility] Address: [address] [address] Performed By: #### V ALLMG ####[facility] LABCLIA [id number] [place] [address] [place] Calcium.ionized (Bld) [Mass/Vol] 1.19 mmol/L Normal 1.08-1.30 [facility] Comment on above: Order Comment: Speci men Type: VENOUS BLOOD SPECIMENOrdering Facility: [facility] Address: [address] [place] [address] Performed By: #### V ALLMG ####[facility] LABIA [id number] [place] [address] [place] Calcium.ionized adjusted to pH 7.4 (BldA) [Moles/Vol] 1.18 mmol/L Normal 1.08-1.30 [facility] Comment on above: Order Comment: Speci men Type: VENOUS BLOOD SPECIMENOrdering Facility: [facility] Address: [address] [place] [address] Performed By: #### V ALLMG ####[facility] LABIA [id number] [address] [place] Carboxyhemoglobin (BldV) [Mass fraction] 1.9 % Normal 0.0-2.0 [facility] Comment on above: Order Comment: Speci men Type: VENOUS BLOOD SPECIMENOrdering Facility: [facility] Address: [address] [place] [address] Result Comment: Carb oxyhemoglobin Reference Range for Smokers: 2.0-8.0% Performed By: #### V ALLMG ####[facility] LABIA [id number] [place] [address] [place] CO2 (BldV) [Partial pressure] 40 mm[Hg] Low 42-55 [facility] Comment on above: Order Comment: Speci men Type: VENOUS BLOOD SPECIMENOrdering Facility: [facility] Address: [address] [place], [place] [address] Performed By: #### V ALLMG ####[facility] LABIA [id number] [place] [address] [place] CO2 [Moles/Vol] 25 mmol/L Normal 25-29 [facility] Comment on above: Order Comment: Speci men Type: VENOUS BLOOD SPECIMENOrdering Facility: [facility] Address: [address] [place] [address] Performed By: #### V ALLMG ####[facility] LABCLIA [id number] [place] [address] [place] CO2 adjusted to patient's actual temperature (BldV) [Partial pressure] 40 mmHg Low 42-55 [facility] Comment on above: Order Comment: Speci men Type: VENOUS BLOOD SPECIMENOrdering Facility: [facility] Address: [address] [place] [address] Performed By: #### V ALLMG ####[facility] LABCLIA [id number] [place] [address] [place] Glucose [Mass/Vol] 120 mg/dL High 60-105 [facility] Comment on above: Order Comment: Speci men Type: VENOUS BLOOD SPECIMENOrdering Facility: [facility] Address: [address] [place], [place] [id number] Performed By: #### V ALLMG ####[facility] LABCLIA [id number] [place] [address] [place] HCO3 (Bld) [Moles/Vol] 24 mmol/L Normal 24-28 [facility] Comment on above: Order Comment: Speci men Type: VENOUS BLOOD SPECIMENOrdering Facility: [facility] Address: [address] [place], [place] [address] Performed By: #### V ALLMG ####[facility] LABCLIA [id number] [place] [address] [place] Hematocrit (Bld) [Volume fraction] 37.2 % Low 39.0-51.0 [facility] Comment on above: Order Comment: Speci men Type: VENOUS BLOOD SPECIMENOrdering Facility: [facility] Address: [address] Performed By: #### V ALLMG ####[facility] LABCLIA [id number] [place] [address] [place] Hemoglobin (Bld) [Mass/Vol] 12.1 g/dL Low 13.0-17.0 [facility] Comment on above: Order Comment: Speci men Type: VENOUS BLOOD SPECIMENOrdering Facility: [facility] Address: [address] [address] Performed By: #### V ALLMG ####[facility] LABIA [id number] [place] [address] [place] Lactate [Moles/Vol] 1.4 mmol/L Normal 0.5-2.2 [facility] Comment on above: Order Comment: Speci men Type: VENOUS BLOOD SPECIMENOrdering Facility: [facility] Address: [address] [address] Performed By: #### V ALLMG ####[facility] LABIA [id number] [place] [address] [place] Magnesium [Moles/Vol] 0.58 mmol/L Normal 0.45-0.60 [facility] Comment on above: Order Comment: Speci men Type: VENOUS BLOOD SPECIMENOrdering Facility: [facility] Address: [address] Performed By: #### V ALLMG ####[facility] LABCLIA [id number] [place] [address] [place] Methemoglobin (Bld) [Mass fraction] 1.7 % High 0.0-1.5 [facility] Comment on above: Order Comment: Speci men Type: VENOUS BLOOD SPECIMENOrdering Facility: [facility] Address: [address] [address] Performed By: #### V ALLMG ####[facility] LABCLIA [id number] [place] [address] [place] Oxygen (BldV) [Partial pressure] 96 mm[Hg] High 35-45 [facility] Comment on above: Order Comment: Speci men Type: VENOUS BLOOD SPECIMENOrdering Facility: [facility] Address: [address] [place] [address] Performed By: #### V ALLMG ####[facility] LABCLIA [id number] [place] [address] [place] Oxygen adjusted to patient's actual temperature (BldV) [Partial pressure] 96 mmHg High 35-45 [facility] Comment on above: Order Comment: Speci men Type: VENOUS BLOOD SPECIMENOrdering Facility: [facility] Address: [address] [place] [address] Performed By: #### V ALLMG ####[facility] LABCLIA [id number] [place] [address] [place] Oxygen saturation in Venous blood 97 % High 60-85 [facility] Comment on above: Order Comment: Speci men Type: VENOUS BLOOD SPECIMENOrdering Facility: [facility] Address: [address] [place], [place] [address] Performed By: #### V ALLMG ####[facility] LABCLIA [id number] [place] [address] [place] Oxyhemoglobin (BldV) [Mass fraction] 94 % High 60-85 [facility] Comment on above: Order Comment: Speci men Type: VENOUS BLOOD SPECIMENOrdering Facility: [facility] Address: [address] [place], [place] [address] Performed By: #### V ALLMG ####[facility] LABCLIA [id number] [place] [address] [place] pH (BldV) 7.39 [pH] Normal 7.32-7.42 [facility] Comment on above: Order Comment: Speci men Type: VENOUS BLOOD SPECIMENOrdering Facility: [facility] Address: [address] [address] Performed By: #### V ALLMG ####[facility] LABCLIA [id number] [place] [address] [place] pH adjusted to patient's actual temperature (BldV) 7.39 Normal 7.32-7.42 [facility] Comment on above: Order Comment: Speci men Type: VENOUS BLOOD SPECIMENOrdering Facility: [facility] Address: [address] [place] [address] Performed By: #### V ALLMG ####[facility] LABCLIA [id number] [place] [address] [place] Potassium [Moles/Vol] 3.8 mmol/L Normal 3.5-5.0 [facility] Comment on above: Order Comment: Speci men Type: VENOUS BLOOD SPECIMENOrdering Facility: [facility] Address: [address] [place] [address] Performed By: #### V ALLMG ####[facility] LABCLIA [id number] [place] [address] [place] Sodium [Moles/Vol] 139 mmol/L Normal 136-144 [facility] Comment on above: Order Comment: Speci men Type: VENOUS BLOOD SPECIMENOrdering Facility: [facility] Address: [address] [place], [place] [address] Performed By: #### V ALLMG ####[facility] LABCLIA [id number] [place] [address] [place] XR CHEST 1V FRONTAL PORTon 0 08-28-2022 XR CHEST 1V FRONTAL PORT * * *Final Report* * * DATE OF EXAM: Aug 28 2022 9:50PM AMY [id number] - XR CHEST 1V FRONTAL PORT / PROCEDURE REASON: Dyspnea on exertion (BRASWELL) * * * * Physician Interpretation * * * * EXAMINATION: CHEST RADIOGRAPH (PORTABLE SINGLE VIEW AP) Exam Date/Time: 08/28/2022 9:50 PM Clinical History: Dyspnea on exertion (BRASWELL) MQ: [id number]_6 Comparison: 08/20/2022 RESULT: Lines, tubes, and devices: None. Lungs and pleura: Mild increase of right hemidiaphragm elevation. Increase of partial atelectasis along the medial bases. No pleural effusion or pneumothorax. Cardiomediastinal silhouette: Normal sized heart. Thoracic aorta is tortuous. Other: Generalized osteopenia. IMPRESSION: See result. Shellfish Farming Supervisor: PSCB Transcribe Date/Time: Aug 28 2022 10:04P Dictated by : AMERICO ADHIKARI MD This examination was interpreted and the report reviewed and electronically signed by: AMERICO ADHIKARI MD on Aug 28 2022 10:06PM EST [id number] Normal [facility] Bacteria Bld Culton 08-28-19 23 Bacteria identified Cx Nom (Bld) CULTURE, BLOOD: No growth 5 days Normal [facility] Comment on above: Performed By: #### 6 00-7 ####[facility] LABCLIA [id number] [place] [address] [place] Bacteria identified Cx Nom (Bld) CULTURE, BLOOD: No growth 5 days Normal [facility] Comment on above: Performed By: #### 6 00-7 ####[facility] LABCLIA [id number] [place] [address] [place] Bacteria Ur Culton 3 Bacteria identified Cx Nom (U) CULTURE, URINE: No growth (<1,000 CFU/ml) Normal [facility] Comment on above: Performed By: #### 6 30-4 ####[facility] LABIA [id number] [place] [address] [place] Basic metabolic 2000 panelon 08-27-2022 Anion gap [Moles/Vol] 13 mmol/L Normal 9-18 [facility] Comment on above: Order Comment: Speci men Type: BLOOD SPECIMENOrdering Facility: [facility] Address: [address] [place] [address] [place] [id number] Performed By: #### 2 4321-2, , 2776-02 ####[facility] LABCLIA [id number] [place] [address] [place] Calcium [Mass/Vol] 9.3 mg/dL Normal 8.5-10.2 [facility] Comment on above: Order Comment: Speci men Type: BLOOD SPECIMENOrdering Facility: [facility] Address: [address] Performed By: #### 2 4321-2, , 2776-02 ####[facility] LABCLIA [id number] [place] [address] [place] Chloride [Moles/Vol] 105 mmol/L Normal 97-105 [facility] Comment on above: Order Comment: Speci men Type: BLOOD SPECIMENOrdering Facility: [facility] Address: [address] Performed By: #### 2 4321-2, , 2776-02 ####[facility] LABCLIA [id number] [place] [address] [place] CO2 [Moles/Vol] 22 mmol/L Normal 22-30 [facility] Comment on above: Order Comment: Speci men Type: BLOOD SPECIMENOrdering Facility: [facility] Address: [address] Performed By: #### 2 4321-2, , 2776-02 ####[facility] LABCLIA [id number] [place] [id number] [place] Creatinine [Mass/Vol] 0.79 mg/dL Normal 0.73-1.22 [facility] Comment on above: Order Comment: Speci men Type: BLOOD SPECIMENOrdering Facility: [facility] Address: [address] Performed By: #### 2 432-2, , 2776-02 ####[facility] LABCLIA [id number] [place] [address] [place] ESTIMATED GLOMERULAR FILTRATION RATE 91 mL/min/1.73m??? Normal >=60 [facility] Comment on above: Order Comment: Portia tay Type: BLOOD SPECIMENOrdering Facility: [facility] Address: [address] [place] [address] Result Comment: Mariaelena mated Glomerular Filtration Rate (eGFR) is calculated using the 2020 CKD-EPI creatinine equation. This equation utilizes serum creatinine, sex, and age as parameters. The creatinine assay has traceable calibration to isotope dilution-mass spectrometry. Refer to KDIGO guidelines for clinical interpretation. In patients with unstable renal function, e.g. those with acute kidney injury, the eGFR may not accurately reflect actual GFR. Performed By: #### 2 4321-2, , 2776-02 ####[facility] LABCLIA [id number] [place] [address] [place] Glucose [Mass/Vol] 197 mg/dL High 74-99 [facility] Comment on above: Order Comment: Portia tay Type: BLOOD SPECIMENOrdering Facility: [facility] Address: [address] [place] [address] Result Comment: The [place] Diabetes Association (ADA) provides guidance for cutoff values for fasting glucose and random glucose. The ADA defines fasting as no caloric intake for at least 8 hours. Fasting plasma glucose results between 100 to 125 mg/dL indicate increased risk for diabetes (prediabetes). Fasting plasma glucose results greater than or equal to 126 mg/dL meet the criteria for diagnosis of diabetes. In the absence of unequivocal hyperglycemia, results should be confirmed by repeat testing. In a patient with classic symptoms of hyperglycemia or hyperglycemic crisis, random plasma glucose results greater than or equal to 200 mg/dL meet the criteria for diagnosis of diabetes. Reference: Standards of Medical Care in Diabetes 2016, [place] [employer] Association. Diabetes Care. 2016.39(Suppl 1). Performed By: #### 2 4321-2, , 2776- ####[facility] LABCLIA [id number] [place] [id number] [place] Potassium [Moles/Vol] 4.3 mmol/L Normal 3.7-5.1 [facility] Comment on above: Order Comment: Speci men Type: BLOOD SPECIMENOrdering Facility: [facility] Address: [address] [place] [address] Performed By: #### 2 4321-2, , 2776-02 ####[facility] LABIA [id number] [place] [address] [place] Sodium [Moles/Vol] 140 mmol/L Normal 136-144 [facility] Comment on above: Order Comment: Speci men Type: BLOOD SPECIMENOrdering Facility: [facility] Address: [address] [place] [address] Performed By: #### 2 4321-2, , 2776-02 ####[facility] LABIA [id number] [place] [address] [place] Urea nitrogen [Mass/Vol] 17 mg/dL Normal 9-24 [facility] Comment on above: Order Comment: Speci men Type: BLOOD SPECIMENOrdering Facility: [facility] Address: [address] [place] [address] Performed By: #### 2 4321-2, , 2776-02 ####[facility] LABIA [id number] [place] [id number] [place] CASE MGT INIT ASSESon 2022 CASE MGT INIT ASSES HNO ID: [id number] Author: Yane George RN Service: ? Author Type: Registered Nurse Type: Care Mgt Initial Assessment Filed: 08/27/2022 5:10 PM Note Text: CARE MANAGEMENT: ASSESSMENT AND DISCHARGE PLAN SERVICE DATE: August 27, 2022 SERVICE TIME: 3:45 PM PCP: No primary care provider on file. Primary Contact: No emergency contact information on file. 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 request copy to scan for [employer] chart) Current Living Arrangements and Support Lives with: Spouse/significant other Type of Residence: Private Residence (House) Does the patient have to climb stairs at home?: stairs outside the home;stairs within the home;Yes Support: Spouse/significant other How do you manage to accomplish the following: Independent: Ambulation;Bathe/Shower;Dr ess;Meals/Meal Prep;Going to the bathroom;Medication Management;Transportation to appointments/community Current Services/Equipment Current Post-Acute Service(s): (None) Discharge Planning Patient Goal(s): General wellness, Be able to go home [place] of Choice Explained: [place] of Choice Given: No Reason Not Given: Unable to complete with this assessment - revisit Are you interested in bedside delivery of your medications? No Discharge Planning Participant(s): Patient Patient/Family Comments: Caregiver Assessment: Caregiver is ready, willing and able to meet the patient's needs as recommended by the inter-professional team: No Caregiver needed Transport at Discharge: Transportation Arrangements: Car Destination: Home Needs Prior to Discharge: Needs Prior to Discharge: To Be Determined Post-Acute Discharge Plan: Per medical record. 77 year old male w/ recent STEMI (08/20/22) s/p 3mm JUHI to prox RCA, 50 - <70% mid to distal LAD disease, mild LCX disease, HTN, HLD, DM, nephrolithiasis who was transferred from [facility] w/ gross hematuria CM met patient in room. Patient lives with spouse at home. Patient reports independence at home with adl's/iadl's prior to admission. No oxygen, or cpaps at home. Had recent VT in past. Cardiology on consult. No current home health care. Chart reviewed. PT/OT consults - not currently ordered. Pt has a 6-click score of 20. Pt on Room Air. Pt is on Zosyn IVATB meds at this time. Pts family will provide dc transport. Discharge needs TBD Medical course. Has hernandez cath in place. CM will continue to follow. SIGNATURE: Yane George RN PATIENT NAME: Olaf Briones DATE: August 27, 2022 TIME: 5:05 PM CONTACT #: [phone] Normal [facility] CBC W Auto Differential pane l (Bld)on 08-27-2022 Basophils (Bld) [#/Vol] 0.03 10*3/uL Normal <0.11 [facility] Comment on above: Order Comment: Speci men Type: BLOOD SPECIMENOrdering Facility: [facility] Address: [address] [place] [address] Performed By: #### 5 7021-8 ####[facility] LABCLIA [id number] [place] [address] [place] Basophils/100 WBC (Bld) 0.2 % Normal [facility] Comment on above: Order Comment: Speci men Type: BLOOD SPECIMENOrdering Facility: [facility] Address: [address] [place] [address] Performed By: #### 5 7021-8 ####[facility] LABCLIA [id number] [place] [address] [place] Differential cell count method Nom (Bld) Auto Normal [facility] Comment on above: Order Comment: Speci men Type: BLOOD SPECIMENOrdering Facility: [facility] Address: [address] [place] [address] Performed By: #### 5 7021-8 ####[facility] LABCLIA [id number] [place] [address] [place] Eosinophils (Bld) [#/Vol] 10*3/uL Normal <0.46 [facility] Comment on above: Order Comment: Speci men Type: BLOOD SPECIMENOrdering Facility: [facility] Address: [address] [place], [place] [address] Performed By: #### 5 7021-8 ####[facility] LABCLIA [id number] [place] [address] [place] Eosinophils/100 WBC (Bld) 0.1 % Normal [facility] Comment on above: Order Comment: Speci men Type: BLOOD SPECIMENOrdering Facility: [facility] Address: [address] [place] [address] Performed By: #### 5 7021-8 ####[facility] LABIA [id number] [place] [address] [place] Erythrocyte distribution width (RBC) [Ratio] 12.5 % Normal 11.5-15.0 [facility] Comment on above: Order Comment: Speci men Type: BLOOD SPECIMENOrdering Facility: [facility] Address: [address] [place] [address] Performed By: #### 5 7021-8 ####[facility] LABIA [id number] [place] [address] [place] Hematocrit (Bld) [Volume fraction] 38.5 % Low 39.0-51.0 [facility] Comment on above: Order Comment: Speci men Type: BLOOD SPECIMENOrdering Facility: [facility] Address: [address] [place] [address] Performed By: #### 5 7021-8 ####[facility] LABIA [id number] [place] [address] [place] Hemoglobin (Bld) [Mass/Vol] 13.4 g/dL Normal 13.0-17.0 [facility] Comment on above: Order Comment: Speci men Type: BLOOD SPECIMENOrdering Facility: [facility] Address: [address] [place], [place] [address] Performed By: #### 5 7021-8 ####[facility] LABIA [id number] [place] [address] [place] Immature granulocytes (Bld) [#/Vol] 0.10 10*3/uL High <0.10 [facility] Comment on above: Order Comment: Speci men Type: BLOOD SPECIMENOrdering Facility: [facility] Address: [address] [place], [place] [address] Performed By: #### 5 7021-8 ####[facility] LABCLIA [id number] [place] [address] [place] Immature granulocytes/100 WBC (Bld) 0.6 % Normal [facility] Comment on above: Order Comment: Speci men Type: BLOOD SPECIMENOrdering Facility: [facility] Address: [address] [place], [place] [address] Performed By: #### 5 7021-8 ####[facility] LABIA [id number] [place] [address] [place] Lymphocytes (Bld) [#/Vol] 1.16 10*3/uL Normal 1.00-4.00 [facility] Comment on above: Order Comment: Speci men Type: BLOOD SPECIMENOrdering Facility: [facility] Address: [address] [place], [place] [address] Performed By: #### 5 7021-8 ####[facility] LABIA [id number] [place] [address] [place] Lymphocytes/100 WBC (Bld) 7.1 % Normal [facility] Comment on above: Order Comment: Speci men Type: BLOOD SPECIMENOrdering Facility: [facility] Address: [address] [place], [place] [address] Performed By: #### 5 7021-8 ####[facility] LABIA [id number] [place] [address] [place] MCH (RBC) [Entitic mass] 31.5 pg Normal 26.0-34.0 [facility] Comment on above: Order Comment: Speci men Type: BLOOD SPECIMENOrdering Facility: [facility] Address: [address] [place], [place] [address] Performed By: #### 5 7021-8 ####[facility] LABIA [id number] [address] [id number] [address] [place] MCHC (RBC) [Mass/Vol] 34.8 g/dL Normal 30.5-36.0 [facility] Comment on above: Order Comment: Speci men Type: BLOOD SPECIMENOrdering Facility: [facility] Address: [address] [place] [address] Performed By: #### 5 7021-8 ####[facility] LABCLIA [id number] [place] [address] [place] MCV (RBC) [Entitic vol] 90.6 fL Normal 80.0-100.0 [facility] Comment on above: Order Comment: Speci men Type: BLOOD SPECIMENOrdering Facility: [facility] Address: [address] [place], [place] [address] Performed By: #### 5 7021-8 ####[facility] LABCLIA [id number] [place] [address] [place] Monocytes (Bld) [#/Vol] 1.00 10*3/uL High <0.87 [facility] Comment on above: Order Comment: Speci men Type: BLOOD SPECIMENOrdering Facility: [facility] Address: [address] [place], [place] [address] Performed By: #### 5 7021-8 ####[facility] LABCLIA [id number] [place] [address] [place] Monocytes/100 WBC (Bld) 6.2 % Normal [facility] Comment on above: Order Comment: Speci men Type: BLOOD SPECIMENOrdering Facility: [facility] Address: [address] [place], [place] [address] Performed By: #### 5 7021-8 ####[facility] LABCLIA [id number] [place] [address] [place] Neutrophils (Bld) [#/Vol] 13.93 10*3/uL High 1.45-7.50 [facility] Comment on above: Order Comment: Speci men Type: BLOOD SPECIMENOrdering Facility: [facility] Address: [address] Performed By: #### 5 7021-8 ####[facility] LABCLIA [id number] [address] STATES [facility] Neutrophils/100 WBC (Bld) 85.8 % Normal [facility] Comment on above: Order Comment: Speci men Type: BLOOD SPECIMENOrdering Facility: [facility] Address: [address] Performed By: #### 5 7021-8 ####[facility] LABCLIA [id number] [place] [address] [place] Nucleated RBC (Bld) [#/Vol] 10*3/uL Normal <0.01 [facility] Comment on above: Order Comment: Speci men Type: BLOOD SPECIMENOrdering Facility: [facility] Address: [address] Performed By: #### 5 7021-8 ####[facility] LABCLIA [id number] [place] [address] [place] Nucleated RBC/100 WBC (Bld) [Ratio] 0.0 /100 WBC Normal [facility] Comment on above: Order Comment: Speci men Type: BLOOD SPECIMENOrdering Facility: [facility] Address: [address] Performed By: #### 5 7021-8 ####[facility] LABCLIA [id number] [place] [address] [place] Platelet mean volume (Bld) [Entitic vol] 11.4 fL Normal 9.0-12.7 [facility] Comment on above: Order Comment: Speci men Type: BLOOD SPECIMENOrdering Facility: [facility] Address: [address] [place], [place] [address] Performed By: #### 5 7021-8 ####[facility] LABCLIA [id number] [place] [address] [place] Platelets (Bld) [#/Vol] 214 10*3/uL Normal 150-400 [facility] Comment on above: Order Comment: Speci men Type: BLOOD SPECIMENOrdering Facility: [facility] Address: [address] [place] [address] Performed By: #### 5 7021-8 ####[facility] LABIA [id number] [place] [address] [place] RBC (Bld) [#/Vol] 4.25 10*6/uL Normal 4.20-6.00 [facility] Comment on above: Order Comment: Speci men Type: BLOOD SPECIMENOrdering Facility: [facility] Address: [address] [place] [address] Performed By: #### 5 7021-8 ####[facility] LABIA [id number] [place] [address] [place] WBC (Bld) [#/Vol] 16.24 10*3/uL High 3.70-11.00 [facility] Comment on above: Order Comment: Speci men Type: BLOOD SPECIMENOrdering Facility: [facility] Address: [address] [place] [address] Performed By: #### 5 7021-8 ####[facility] LABIA [id number] [address] [place] CONFIRM BLOOD TYPEon 023 ABO O Normal [facility] Comment on above: Order Comment: Speci men Type: BLOOD SPECIMENOrdering Facility: [facility] Address: [address] [place] [address] Performed By: #### C ONABO ####[facility] BLOOD BANKIA [id number] [place] [address] [place] Rh Nom (Bld) Positive Normal [facility] Comment on above: Order Comment: Speci men Type: BLOOD SPECIMENOrdering Facility: [facility] Address: [address] [place] [address] Performed By: #### C ONABO ####[facility] BLOOD BANKCLIA [id number] [address] [place] [id number] [address] [facility] CONSULTon 08-27-2022 CONSULT HNO ID: [id number] Author: Uzma Bates MD Service: Cardiovascular Medicine Author Type: Physician Type: Consults Filed: 08/27/2022 8:39 PM Note Text: [facility] CARDIOVASCULAR MEDICINE CONSULT NOTE (Template ID [id number]) Olaf Briones [id number] PRIMARY SERVICE: Urology CONSULTING SERVICE: Cardiovascular Medicine: General Consults DATE OF ADMISSION: 08/27/2022 DATE OF CONSULT: 08/27/2022 REASON FOR CONSULT Fluid management , near-syncope HISTORY OF PRESENT ILLNESS Olaf Briones is a 77 year old male w/ recent STEMI (08/20/22) s/p 3mm JUHI to prox RCA, 50 - <70% mid to distal LAD disease, mild LCX disease, HTN, HLD, DM, nephrolithiasis who was transferred from [facility] w/ gross hematuria. Hematuria started on Thursday 08/24 w/ lower pelvic pain and blood clots. Pt came to the ED on 08/26 and was found to have leukocytosis (15), UA+ and started on ceftriaxone. On the morning of 08/27, the patient stood up for his bed to be changed and he felt dizzy w/ a BP of 60/34 and HR of 76. And AMET was called. After laying back down, the patient felt better and the BP returned to 119/75. Urology began 75 cc/hr to resuscitate him, but was concerned to bolus him considering his recent inferolateral STEMI. Pt denies chest pain, SOB, palpitations, bloody stool. 08/20/22 hospitalization: Patient was doing some yard work and felt hot, severely diaphoretic, and passed out . Pt was taken to [facility] by EMS and was found to be in complete AV block with HR in 40's, inferolateral ST elevations. In slab installer, there were concerns that pacemaker might be necessary. After stent was deployed in prox RCA,AV block resolved and HR normalized. Pt was put on ASA, Brillinta, Lisinopril (2.5), and Coreg (6.25) and was discharged two days later. PAST MEDICAL HISTORY HTN, HLD, CAD, DM FAMILY HISTORY Son- [place], Daughter- [place] HOME MEDICATIONS allopurinol (ZYLOPRIM) 300 mg tabletTake 300 mg by mouth once daily.Disp: Rfl: amLODIPine (NORVASC) 5 mg tabletTake 5 mg by mouth once daily.Disp: Rfl: carvedilol (COREG) 6.25 mg tabletTake 6.25 mg by mouth twice daily with meals.Disp: Rfl: ticagrelor (BRILINTA) 90 mg tabletTake 90 mg by mouth twice daily.Disp: Rfl: aspirin, enteric coated (ASPIRIN, ENTERIC COATED) 81 mg EC tabletTake 81 mg by mouth once daily.Disp: Rfl: lisinopril 2.5 mg tabletTake 2.5 mg by mouth once daily.Disp: Rfl: diclofenac, EC, (VOLTAREN) 75 mg EC tabletTake 75 mg by mouth twice daily.Disp: Rfl: nitroglycerin sublingual (NITROQUICK) 0.4 mg SL tabletDissolve 0.4 mg under the tongue every 5 minutes as needed for chest pain.Disp: Rfl: INPATIENT MEDICATIONS Current Facility-Administered Medications Medication Dose Route Frequency docusate sodium 100 mg cap(s) (COLACE) 100 mg ORAL BID NaCl 0.9% iv flush bag 20 mL INTRAVENOUS PRN lactated ringers iv infusion 75 mL/hr INTRAVENOUS CONTINUOUS acetaminophen 650 mg tab(s) (TYLENOL) 650 mg ORAL q 4 H PRN oxyCODONE IR 5 mg tab(s) (ROXICODONE) 5 mg ORAL q 6 H PRN ondansetron (PF) 4 mg injection (ZOFRAN) 4 mg INTRAVENOUS q 6 H PRN melatonin 3 mg tab(s) 3 mg ORAL AT BEDTIME PRN docusate sodium 100 mg cap(s) (COLACE) 100 mg ORAL BID PRN allopurinol 300 mg tab(s) (ZYLOPRIM) 300 mg ORAL DAILY amLODIPine 5 mg tab(s) (NORVASC) 5 mg ORAL DAILY aspirin 81 mg chewable tab(s) 81 mg ORAL DAILY atorvastatin 80 mg tab(s) (LIPITOR) 80 mg ORAL AT BEDTIME carvedilol 6.25 mg tab(s) (COREG) 6.25 mg ORAL BID w MEALS ticagrelor 90 mg tab(s) (BRILINTA) 90 mg ORAL BID piperacillin-tazobactam iv piggyback 3.375 g in dextrose (iso-osmotic) 50 mL (ZOSYN) 3.375 g INTRAVENOUS q 6 H ALLERGIES ALLERGIES Allergen Reactions Albuterol Other: See Comments Hydrochlorothiazide Rash COMPLETE REVIEW OF SYSTEMS Constitutional: No weight loss, malaise or fevers. HEENT: Negative for frequent or significant headaches Respiratory: Negative for cough, wheezing, or shortness of breath Cardiovascular: Negative for chest pain, leg swelling or palpitations Gastrointestinal: Negative for abdominal discomfort, blood in stools or black stools or change in bowel habits Genitourinary: Bleeding and passing clots Endocrine: Negative for cold or heat intolerance, polyuria, polydipsia and goiter Hematologic: positive for hematuria Neurologic: No history or headaches, syncope, paralysis, seizures or tremors Integumentary: Negative for lesions, rash, and itching. PHYSICAL EXAM BP 100/63 Pulse 77 Temp 36.8 ?C (98.2 ?F) (Oral) Resp 16 Ht 173 cm (5' 8.11 ) Wt 75.5 kg (166 lb 7.2 oz) SpO2 94% BMI 25.23 kg/m? General Appearance: Well developed, Well nourished , and No acute distress HEENT: PERRLA, EOM's intact, and JVD - no Lungs: Clear and Respiratory effort: normal Heart: Regular rate AND rhythm, No heaves, No lifts, No thrills, No rubs, and S1, S2 normal Abdomen: Soft, Non-tender, and Non-distended Skin: Warm, Dry, and No rash o (more content not included)... Normal [facility] CT Urogramon 08-27-2022 CT Urogram Exam Date/Time: 08/26/2022 20:26 EDT Reason for Exam: Hematuria, gross/macroscopic;Other (please specify) Report IMPRESSION: Distention of the urinary bladder, containing Hernandez catheter, with large amount of hyperdensity within the dependent bladder, suggestive of hemorrhagic products. Etiology of the hemorrhage is not determined on this study and could be posttraumatic or secondary to underlying neoplasm. Assessment for possible underlying mass or neoplasm is limited on this study and could best be assessed with cystoscopy as clinically indicated. Mild fullness of the collecting systems could relate to the bladder distention versus mild hydronephrosis. No distinct obstructing calculi. Multiple bilateral renal calculi. EXAMINATION: CT Urogram HISTORY: Hematuria, gross/macroscopic. Lower pelvic pain, blood clots, hematuria. History of kidney stones. Recent stent placement at outside facility. History of prostate biopsy and TURP. TECHNIQUE: CT protocol including unenhanced, renal parenchymal phase and excretory phase renal imaging was obtained following IV contrast. All CT scans at this facility use dose modulation, iterative reconstruction, and/or weight based dosing when appropriate to reduce radiation dose to as low as reasonably achievable. COMPARISON: None available. RESULT: Kidneys and urinary tract: Bladder: Distention of the urinary bladder, containing Hernandez catheter. Large amount of hyperdensity within the dependent bladder. Mass effect on the bladder base from enlarged prostate with calcifications. Small volume air within the nondependent bladder, which may relate to the Hernandez catheter. Mild fullness of the bilateral renal collecting systems, slightly greater on the left, which could relate to the bladder distention versus mild hydronephrosis. No distinct obstructing ureteral calculi. Multiple bilateral renal calculi, nonobstructing with the largest measuring around 5 to 6 mm. Perinephric stranding bilaterally. Large peripelvic cyst on the right. Other low-attenuation cysts bilateral kidneys. No suspicious renal lesions. Abdomen and Pelvis: Report Liver: Subcentimeter low-attenuation lesions, too small to characterize, but most likely benign. Biliary: No bile duct dilation. Gallbladder is unremarkable. Pancreas: No mass or duct dilation. Spleen: Calcified granulomas. No splenomegaly. Adrenals: No mass. GI tract: No bowel dilation. Diverticulosis but evidence for acute diverticulitis. Normal appendix. Lymph nodes: No abdominal or pelvic lymphadenopathy. Mesentery/Peritoneum: No ascites or mass. Retroperitoneum: No mass. Vasculature: The celiac axis and SMA are patent. The portal vein and branches, splenic vein, SMV, and hepatic veins are patent. Moderate arterial atherosclerotic disease without aneurysm. Pelvis: Bladder and prostate findings as above. No significant free fluid. Trace periumbilical dehiscence containing fat. Bones/Soft Tissues: No acute osseous findings. Degenerative changes. Lower thorax: Lung bases unremarkable. Coronary calcifications. Ordering Provider: Tom Salas FINAL REPORT Dictated: 08/27/2022 9:37 am Gt Alejo MD Signed (Electronic Signature): 08/27/2022 9:37 am Signed by: Gt Alejo MD Transcribed by: KEVIN Technologist: WILMER Technical Comments GFR (mL/min/1/73m2) 88 Contrast: Isovue 300 Contrast amount in ml's: 100 Normal [facility] Consultation Noteon 08-28-19 Consultation Note Patient: ARTHUR BRIONES Age: 77 years Sex: Male : 1945 Associated Diagnoses: None Author: Alexandre KOROMA MD Chief Complaint 08/26/2022 17:07 EDT pt to ER with c/o lower pelvic pain and blood clots in urine that started saturday. history of kidney stones. just had a stent placed last saturday at [facility]. sees dr ivory Thank for consultation on this 77-year-old white male who presented with the acute onset of gross hematuria inability to urinate, passage of clots. He had an NSTEMI last week and was subsequently placed on Brilinta for anticoagulation. He is a patient of Dr. Ivory and has a history of kidney stones in the distant past. He was last seen in the office back in October with a KUB. Three-way Hernandez catheter was placed with about 500 cc urinary retention. This is draining intermittently rosaura blood in the catheter is clogging up intermittently. He just returned from CT scan. He has significant suprapubic discomfort from a distended bladder at present. The entire past medical history, past surgical history, systems review, family history, social history, medications, and allergies are as noted in the admission history and physical performed by Dr. Salguero and is unchanged. Health Status Allergies: Allergic Reactions (Selected) Severity Not Documented Albuterol- Headache. Bactrim- Unknown. HydroCHLOROthiazide- Rash., Allergies (3) Active Reaction albuterol Headache Bactrim Unknown hydroCHLOROthiazide Rash Current medications: (Selected) Documented Medications Documented allopurinol 300 mg Tab: 300 mg = 1 tab(s), Oral, Daily amLODIPine 5 mg Tab: 5 mg = 1 tab(s), Oral, Daily diclofenac sodium 75 mg Oral EC Tab: 75 mg = 1 tab(s), Oral, BID metoprolol 25 mg ER Tab: 25 mg = 1 tab(s), Oral, Daily, Refills(s) 0 rosuvastatin 20 mg Tab: 10 mg = 0.5 tab(s), Oral, Daily, Home Medications (5) Active allopurinol 300 mg Tab 300 mg = 1 tab(s), Oral, Daily amLODIPine 5 mg Tab 5 mg = 1 tab(s), Oral, Daily diclofenac sodium 75 mg Oral EC Tab 75 mg = 1 tab(s), Oral, BID metoprolol 25 mg ER Tab 25 mg = 1 tab(s), Oral, Daily rosuvastatin 20 mg Tab 10 mg = 0.5 tab(s), Oral, Daily Problem list: All Problems BPH with urinary obstruction / SNOMED CT 8739077953 / Confirmed Kidney stone / SNOMED CT 367616274 / Confirmed Weak urinary stream / SNOMED CT 075206660 / Confirmed Microscopic hematuria / SNOMED CT 810052095 / Confirmed Diabetes / SNOMED CT 144105547 / Confirmed Hypertension / SNOMED CT 7887498658 / Confirmed Prostatitis / SNOMED CT 38949422 / Confirmed BPH without urinary obstruction / SNOMED CT 8598486650 / Confirmed Gross hematuria / SNOMED CT 749472642 / Confirmed Asymptomatic microscopic hematuria / SNOMED CT 4006559045 / Confirmed, Active Problems (10) Asymptomatic microscopic hematuria BPH with urinary obstruction BPH without urinary obstruction Diabetes Gross hematuria Hypertension Kidney stone Microscopic hematuria Prostatitis Weak urinary stream Histories Past Medical History: No active or resolved past medical history items have been selected or recorded. Family History: Hypertension Father Procedure history: Cystoscopy ([id number]) on 08/18/2013 at 68 Years. Comments: 10/02/2018 16:11 Katie Rincon MA 11/08/200904/2006 TURP - Transurethral resection of prostate ([id number]) in 2006 at 61 Years. Urodynamics ([id number]) in 2006 at 61 Years. Transrectal biopsy of prostate using ultrasound (US) guidance ([id number]) in 2005 at 60 Years. ESWL - Extracorporeal shockwave lithotripsy for renal calculus ([id number]) in 2000 at 55 Years. Comments: 10/02/2018 16:11 ROLA Rogers MA, Katie Cifuentes LEFT Social History Social & Psychosocial Habits Alcohol 10/24/2018 Use: Current Frequency: 1-2 times per month 08/26/2022 Risk Assessment: Denies Alcohol Use Substance Abuse 08/26/2022 Risk Assessment: Denies Substance Abuse Tobacco 10/21/2020 Tobacco Use: Never (less than 100 in l 08/26/2022 Risk Assessment: Denies Tobacco Use . Physical Examination General: Alert and oriented, Moderate distress. Eye: Pupils are equal, round and reactive to light. HENT: Normocephalic. Neck: Supple. Respiratory: Lungs are clear to auscultation. Cardiovascular: Normal rate, Regular rhythm, No murmur. Gastrointestinal: Soft, Non-tender, Non-distended. Vital Signs 08/26/2022 20:10 EDT Heart Rate Monitored 84 bpm Respiratory Rate Monitored 16 br/min Systolic Blood Pressure 197 mmHg HI Diastolic Blood Pressure 89 mmHg Mean Arterial Pressure, Cuff 125 mmHg SpO2 96 % 08/26/2022 19:17 EDT Heart Rate Monitored 63 bpm Respiratory Rate 18 br/min Systolic Blood Pressure 131 mmHg Diastolic Blood Pressure 69 mmHg Mean Arterial Pressure, Cuff 90 mmHg SpO2 96 % 08/26/2022 18:11 EDT Heart Rate Monitored 74 bpm Respiratory Rate 18 br/min Systolic Blood Pressure 147 mmHg HI Diastolic Blood Press (more content not included)... Normal [facility] Comment on above: Result Comment: Elec tronically Signed By: Alexandre KOROMA MD\.br\Date and Time Signed: 08/26/22 22:22 EDT ECG COMPLETEon 08-27-2022 ECG COMPLETE Ventricular Rate : 6 8 BPM Atrial Rate : 68 BPM P-R Interval : 186 ms QRS Duration : 102 ms Q-T Interval : 452 ms QTC Calculation(Bazett) : 480 ms Calculated P [place] : 7 degrees Calculated R [place] : -25 degrees Calculated T [place] : -33 degrees NORMAL SINUS RHYTHM MINIMAL VOLTAGE CRITERIA FOR LVH, MAY BE NORMAL VARIANT ( R in aVL ) CANNOT EXCLUDE ANTERIOR MYOCARDIAL INFARCTION , AGE UNDETERMINED ABNORMAL ECG Confirmed by GAVINO HAHN, CODY ([id number]) on 09/01/2022 3:04:36 PM NAME : OLAF BRIONES PID : [id number] : 1945 Gender : Male Race : Unknown ORD : [id number] Procedure Date : Aug 27 2022 12:56:05 Edit Date : Sep 01 2022 15:04:38 Diagnosis: NORMAL SINUS RHYTHM MINIMAL VOLTAGE CRITERIA FOR LVH, MAY BE NORMAL VARIANT ( R in aVL ) CANNOT EXCLUDE ANTERIOR MYOCARDIAL INFARCTION , AGE UNDETERMINED ABNORMAL ECG Confirmed by CODY MANCIA MD ([id number]) on 09/01/2022 3:04:36 PM Test Reason : Arrhythmia Location : 53 : 0 [facility]- Overread By : CODY MANCIA MD Edited By : CODY MANCIA MD Referred By : , Acquired by : CAROL MALDONADO [facility] ED Clinical Summaryon 2022 ED Clinical Summary (Inserted Image. Amara ble to display) [place] [id number] ED Clinical Summary Person Information Name: OLAF BRIONES Consuelo/[facility] Age: 77 Years : 1945 Sex: Male Language: Occitan PCP: JAME BARRAZA MD Marital Status: Visit Id: Visit Reason: Hematuria; Abdominal pain; POS KIDNEY STONES Speciality: Acuity: 3 Enc Type: Emergency Med Service: Emergency Arrival: 08/26/2022 16:52:40 Discharge: 08/27/2022 04:32:11 LOS: 000 11:40 Checkin: 08/26/2022 16:52:40 Checkout: 08/27/2022 04:32:11 Dispo Type: Short-Term Hosp as IP EVENTS: Event Name Event Status Request Date/Time Start Date/Time Complete Date/Time Arrive Complete 08/26/2022 16:52:40 08/26/2022 16:52:40 08/26/2022 16:52:40 Document Home Meds Request 08/26/2022 16:52:40 Triage Complete 08/26/2022 16:52:40 08/26/2022 17:11:49 08/26/2022 17:11:49 Bed Assign Complete 08/26/2022 17:06:57 08/26/2022 17:06:57 08/26/2022 17:06:57 Dr Exam Complete 08/26/2022 17:06:57 08/26/2022 17:07:31 08/26/2022 17:07:31 RN Exam Complete 08/26/2022 17:06:58 08/26/2022 18:38:58 08/26/2022 18:38:58 Registration Complete 08/26/2022 17:07:31 08/26/2022 17:27:27 08/26/2022 17:27:27 Patient Care Complete 08/26/2022 17:19:02 08/26/2022 19:28:12 Reg Complete Request 08/26/2022 17:27:27 Patient Care Request 08/26/2022 18:32:11 Pending Labs Complete 08/26/2022 18:32:11 08/26/2022 19:11:30 Lab Complete 08/26/2022 18:32:11 08/26/2022 19:11:30 Patient Care Complete 08/26/2022 18:32:11 08/26/2022 19:28:16 Pending Labs Complete 08/26/2022 18:32:12 08/26/2022 19:11:51 Lab Complete 08/26/2022 18:32:12 08/26/2022 19:11:51 Urine Collect Complete 08/26/2022 18:32:12 08/26/2022 19:11:51 Pending Labs Complete 08/26/2022 18:46:52 08/26/2022 18:46:52 08/26/2022 19:00:06 Lab Complete 08/26/2022 18:46:52 08/26/2022 18:46:52 08/26/2022 19:00:06 Pending Labs Inlab 08/26/2022 19:04:22 08/26/2022 19:04:22 Lab Inlab 08/26/2022 19:04:22 08/26/2022 19:04:22 Dr Exam Complete 08/26/2022 19:05:52 08/26/2022 19:05:52 08/26/2022 19:05:52 Registration Request 08/26/2022 19:05:52 Pending Labs Complete 08/26/2022 19:11:30 08/26/2022 19:11:30 08/26/2022 19:11:36 Lab Complete 08/26/2022 19:11:30 08/26/2022 19:11:30 08/26/2022 19:11:36 Meds Admin Complete 08/26/2022 19:18:34 08/26/2022 19:34:28 EKG Complete 08/26/2022 20:07:57 08/26/2022 20:37:22 NPO Request 08/26/2022 21:35:44 Meds Admin Request 08/26/2022 21:37:29 Patient Care Request 08/26/2022 21:38:44 Patient Care Request 08/26/2022 22:25:49 Transfer Complete 08/26/2022 22:25:49 08/27/2022 04:32:32 08/27/2022 04:32:32 Meds Admin Complete 08/27/2022 00:11:32 08/27/2022 00:23:13 Meds Admin Complete 08/27/2022 00:29:08 08/27/2022 00:57:00 Possible SIRS Request 08/27/2022 01:41:01 Meds Admin Complete 08/27/2022 01:43:43 08/27/2022 02:52:55 Discharge Complete 08/27/2022 04:32:32 08/27/2022 04:32:32 08/27/2022 04:32:32 ADDRESS: [address] [place] [id number] [facility] DOC NOTES: MEDICAL INFORMATION: Prescriptions Given: Medications to Continue with No Changes Other Medications allopurinol (allopurinol 300 mg Tab) 1 Tablets By Mouth every day. amlodipine (amLODIPine 5 mg Tab) 1 Tablets By Mouth every day. diclofenac (diclofenac sodium 75 mg Oral EC Tab) 1 Tablets By Mouth 2 times a day. metoprolol (metoprolol 25 mg ER Tab) 1 Tablets By Mouth every day. rosuvastatin (rosuvastatin 20 mg Tab) 0.5 Tablets By Mouth every day. PATIENT EDUCATION INFORMATION: Instructions: Follow up: DIAGNOSIS: 1:Urinary retention; 2:Gross hematuria; 3:Urinary tract infection; Other obstructive and reflux uropathy Normal [facility] ED Note-Physicianon 08-28-19 ED Note-Physician Patient was signed o ut to me by the outgoing physician. He presented for hematuria and urine retention. A irrigating Hernandez was placed and he was given 1 L of bladder irrigation. His urine does show nitrate positive and with bacteria and white cells concerning for UTI so he was started on Rocephin. At the time of signout plan is to reevaluate after the initial liter of bladder irrigation. After the 1 L of bladder irrigation patient's urine remained grossly bloody. I called and spoke to Dr. Koroma who is on-call for urology who recommended a CT urogram to further evaluate. CT urogram was performed and Dr. Koroma came and evaluated the patient in the ED. He manually irrigated the patient's bladder at bedside but the patient continued to have gross hematuria and clotting. Dr. Koroma then discussed with the hospitalist on-call and they were both concerned with the addition of the antiplatelet agents that there was this much acute bleeding but also if they were to hold those agents there is the risk of occlusion of the cardiac stent. They felt that the patient would be better managed at a tertiary facility due to these concerns. I called and spoke with Dr. Johnson from the [facility] who agreed to the transfer the patient for further care. Normal [facility] Comment on above: Result Comment: Elec tronically Signed By: Tom Salas DO\.br\Date and Time Signed: 08/27/22 02:17 EDT ED Patient Education Noteon 08-27-2022 ED Patient Education Note Normal [facility] ED Patient Summaryon 023 ED Patient Summary (Inserted Image. Amara ble to display) [place] [id number] Patient Discharge Instructions Person Information Name: OLAF BRIONES Age: 77 Years Arrival Date: 08/26/2022 16:52:40 Discharge Diagnosis: 1:Urinary retention; 2:Gross hematuria; 3:Urinary tract infection; Other obstructive and reflux uropathy Primary Care Physician: CHRIS HAHN, JAME Bowers Provider Information Primary Provider: Keith Panchal M.D. Advanced Tin Stacker:None The exam and treatment you received in the Emergency Department were for an urgent problem and are not intended as complete care. It is important that you follow up with a doctor, nurse practitioner, or physician?s family law legal assistant for ongoing care. If your symptoms become worse or you do not improve as expected and you are unable to reach your usual health care provider, you should return to the Emergency Department. We are available 24 hours a day. OLAF BRIONES has been given the following list of patient education materials, prescriptions and follow-up instructions: Follow-up Instructions: In the event that this physician does not participate in your insurance network, please consult with your insurance company to find a nearby participating provider. Patient Education Materials: A MESSAGE TO ALL PATIENTS REGARDING OPIOIDS PRESCRIPTION OPIOIDS: WHAT YOU NEED TO KNOW Prescription opioids can be used to help relieve mnaxitru-ro-oqlfuy pain and are often prescribed following a surgery or injury, or for certain health conditions. These medications can be an important part of the treatment but also come with serious risks. It is important to work with your healthcare provider to make sure you are getting the safest, most effective care. WHAT ARE THE RISKS AND SIDE EFFECTS OF OPIOID USE? Prescription opioids carry serious risks of addiction and overdose, especially with prolonged use. An opioid overdose, often marked by slowed breathing, can cause sudden . The use of prescription opioids can have a number of side effects as well, even when taken as directed: ? Tolerance?meaning you might need to take more of the medication for the same pain relief ? Physical dependence?meaning you have symptoms of withdrawal when a medication is stopped ? Increased sensitivity to pain ? Constipation ? Nausea, vomiting, and dry mouth ? Sleepiness and dizziness ? Confusion ? Depression ? Low levels of testosterone that can result in lower sex drive, energy, and strength ? Itching and sweating RISKS ARE GREATER WITH: ? History of drug misuse, substance use disorder, or overdose ? Mental health conditions (such as depression or anxiety) ? Sleep apnea ? Older age (65 years and older) ? Avoid alcohol while taking prescription opioids. Also, unless specifically advised by your health care provider, medications to avoid include: ? Benzodiazepines (such as Xanax or Valium) ? Muscle relaxants (such as Soma or Flexeril) ? Hypnotics (such as Ambien or Lunesta) ? Other prescription opioids KNOW YOUR OPTIONS Talk to your health care provider about ways to manage your pain that don?t involve prescription opioids. Some of these options may actually work better and have fewer risks and side effects. Options may include: ? Pain relievers such as acetaminophen, ibuprofen, and naproxen ? Some medication that are also used for depression or seizures ? Physical therapy and exercise ? Cognitive behavioral therapy, a psychological, goal-directed approach, in which patients learn how to modify physical, behavioral, and emotional triggers of pain and stress. IF YOU ARE PRESCRIBED OPIOIDS FOR PAIN: ? Never take opioids in greater amounts or more often than prescribed. ? Follow up with your primary health care provider. o Work together to create a plan on how to manage your pain. o Talk about ways to help manage your pain that don?t involve prescription opioids. o Talk about any and all concerns and side effects. ? Help prevent misuse and abuse o Never sell or share prescription opioids. o Never use another person?s prescription opioids. ? Store prescription opioids in a secure place and out of reach of others (this may include visitors, children, friends, and family). ? Safely dispose of unused prescription opioids: Find your community drug take-back program or your pharmacy mail-back program, or flush them down the toilet, following guidance from the Food and Drug Administration (www.fda.gov/Drugs/Resourc esForYou). ? Visit www.cdc.gov/drugoverdose to learn about the risks of opioids abuse and overdose. ? If you believe you may be struggling with addiction, tell your health tree care foreman and ask for guidance or call [facility] National Helpline at 8-950-385-CHZJ. y Source: US Department of Health and Human Services/Center for Disease Control & Prevention [place] H (more content not included)... Normal [facility] HISTORY PHYSICALon HISTORY PHYSICAL HNO ID: [id number] Author: David Andrews MD Service: Urology Author Type: Physician Type: HANDP Filed: 08/27/2022 9:26 PM Note Text: UROLOGY SERVICE HISTORY AND PHYSICAL Name: Olaf Briones Bed: H050 001/H050-01 Date: 08/27/2022 After Hours [facility] Pager: [phone] ASSESSMENT AND PLAN Olaf Briones is a 77 year old male with PMHx of HTN, HLD, DM, recent STEMI (s/p JUHI), nephrolithiasis, transferred from [facility] for gross hematuria. Currently with 18Fr 3-way catheter, irrigated to light pink with minimal small clots, on CBI, fast drip with light pink output. Interval/daily plan: - Continue CBI - Continue hernandez on traction - OSH pushed CTU images to [facility] #Neuro - Pain control with PO/IV analgesia #CV/Resp - -HDS -Encourage IS #GI - -Diet: GIS, will make NPO if pt needs cysto, fulguration -Colace, Zofran # - -Scr: stable -UOP: Continue to monitor -Hernandez: in place on traction, on cbi #Activity - OOB to chair and Ambulate with assistance. Stressed importance of getting out of bed #DVT prophylaxis - SCDs, on ASA, Ticagrelor #ID/Antibiotics Continue ceftriaxone, follow up UCx from OSH #Secondary Dx/Complications- See active problems below #Discharge teaching - routine #Disposition - pending course Discussed with chief, Dr. Andrews. Naomy Adkins MD, MPH Resident Urology Chief Addendum: 08/27/2022 11:32 AM 77 yoM w/ hx of HTN, HLD, DM, recent STEMI s/p JUHI, nephrolithiasis who was transferred from OSH for gross hematuria w/ 18-Fr 3-way cathter on CBI. Patient had episode of hypotension this morning with standing. AMET called, no intervention at that time as hypotension resolved spontaneously. No tachycardia during this time. Per patient felt dizzy, no CP or SOB. Hadn't stood in some time. Hgb 13.4, leukocytosis to 16.8. Afebrile. Urine clear on exam w/ moderate rate CBI. Slowed to slow drip, will see how urine does. Has calcification in bladder, would benefit from cysto inpatient if bleeding persists or worsens as this may be the source of his bloody urine. Plan for cardiology consult, serial EKG to rule out cardiac etiology. Sending cultures to rule out infection. Patient overall looks non-toxic, will continue to monitor for now. - Urine and blood cultures - Cardiology consult (page placed) - Antihypertensives w/ hold parameters - Titrate CBI to light pink - If catheter stops flowing clamp CBI and page [phone] - Will continue to follow urine, if remains clear may be able to avoid OR this admission in setting of recent STEMI requiring PCI - Working to obtain cardiology records from [facility] Gt Encarnacion MD PGY-6, Urology Pager: [phone] After 1800 and on weekends please page [phone] for assistance. Active Problems Prior VT POA: Yes - placed on ASA 81, ticagrelor 90 mg BID Nephrolithiasis POA: Yes - Monitor HLD POA: Yes - Home atorva 80 mg DM POA: Yes - SSI HTN POA: Yes - amlodipine 5mg daily, carvedilol 6.25 BID, lisinopril 2.5 mg daily HPI Olaf Briones is a 77 year old male with a history of HTN, HLD, DM, recent STEMI (s/p JUHI), nephrolithiasis, transferred from [facility] for gross hematuria. He recently had primary revascularization of proximal RCA (3mm JUHI) placed at [facility] for STEMI on August 20. He was placed on DAPT (ASA, Ticagrelor). On 08/26, the patient presented to ER with lower pelvic pain and blood clots in the urine that began Saturday. In the ED a 3-way was placed and had return of 500 cc. He had a leukocytosis to 15, Hb 14, INR 1.2, UA 3+, + nitrites, he was started on ceftriaxone. He is seen by Dr. Ivory in [facility] for nephrolithiasis. He previously had ESWL (2000), TURP in 2006. He reports not having a recent cysto or CTU with his outpt urologist. He reports emptying his bladder completely, having some intermittency, nocturia x1, he never had gross hematuria before, denies dysuria prior to hernandez placement. He denies lightheadedness, fevers, CP, SOB, abdominal pain, changes in urination, BM. No past medical history on file. No past surgical history on file. No family history on file. MEDICATIONS: Prior to Admission Medications: allopurinol (ZYLOPRIM) 300 mg tabletTake 300 mg by mouth once daily.Disp: Rfl: amLODIPine (NORVASC) 5 mg tabletTake 5 mg by mouth once daily.Disp: Rfl: carvedilol (COREG) 6.25 mg tabletTake 6.25 mg by mouth twice daily with meals.Disp: Rfl: ticagrelor (BRILINTA) 90 mg tabletTake 90 mg by mouth twice daily.Disp: Rfl: aspirin, enteric coated (ASPIRIN, ENTERIC COATED) 81 mg EC tabletTake 81 mg by mouth once daily.Disp: Rfl: lisinopril 2.5 mg tabletTake 2.5 mg by mouth once daily.Disp: Rfl: diclofenac, EC, (VOLTAREN) 75 mg EC tabletTake 75 mg by mouth twice daily.Disp: Rfl: nitroglycerin sublingual (NITROQUICK) 0.4 mg SL tabletDissolve 0.4 mg under the tongue every 5 minutes as need (more content not included)... Normal [facility] Insurance Correspondence Off 08-27-2022 Insurance Correspondence Office [id number]:127 Normal [facility] MEDICAL EMERon 08-27-2022 MEDICAL VANDANA HNO ID: [id number] Author: Francis Irizarry MD Service: Urology Author Type: Resident Type: Chg in Clinical Condition Filed: 08/27/2022 9:40 AM Note Text: Olaf Briones 08/27/2022 9:33 AM AMET for orthostatic hypotension Assessment: Olaf Briones is a 77 year old male with PMHx of HTN, HLD, DM, recent STEMI (s/p JUHI), nephrolithiasis, transferred from [facility] for gross hematuria. Currently with 18Fr 3-way catheter, from outside hospital with CBI moderate drip with light pink output. Interval events: - Patient stood up to have bed cleaned, passed a small clot and had a bladder spasm, became hypotensive to SBP in 60s and HR at 76, recovered to SBP 109 when put back into bed - WBC is 16.8, Hgb 13.4 - Currently on brillinta for recent STEMI last week at [facility]. Unable to see ECHO data, EKG at bedside with dagmar per AMET team - Carvedilol was held this AM per nursing - IVF 75 cc/hr - Patient feels asymptomatic at this time On exam, CBI with light pink output on moderate CBI drip no clots noted in tubing or bag, flowing without issue, vitals normalized, patient alert and oriented x3, discussing meds and when his is coming to visit. Stated his card setter in [place] at [facility] is Dr. Zamora. Luis Angel on brillinta for STEMI. Plan: - Will obtain Ucx and Bcx x2 - Will start empiric zosyn after cultures drawn - Coreg dosing with hold parameters for BP - EKG ordered, and reviewed with AMET team, Cardiology consulted - Will consider adjusting fluids after cardiology input - Will keep on bedrest for now given postural hypotension - Discussed with patient and nurse at bedside to have bring records from [facility] to here. Will also request ECHO report from [facility] as well. - Continue CBI, titrate to light pink Discussed with chief, Dr. Encarnacion, and staff, Dr. Sharon Irizarry MD Pager [phone], after hours or weekends please page [phone] Urology Resident, PGY-5 Normal [facility] HNO ID: [id number] Author: Claudy William APRN.BIOINFORMATICS SOFTWARE ENGINEER Service: Critical Care Author Type: Nurse Practitioner Type: Chg in Clinical Condition Filed: 08/27/2022 9:15 AM Note Text: MEDICAL EMERGENCY TEAM AMET CODE STATUS: Code Status: Not on file BACKGROUND Pt is 77 yr old male PMHx HTN, HLD, DM, STEMI s/p JUHI 08/20 who was admitted for gross hematuria REASON FOR CALL Blood Pressure: Acute decrease in Systolic Blood Pressure <90 ASSESSMENT AMET was called to bedside when pt became dizzy/lightheaded when standing at bedside. Initial B/P was 60/34 with HR of 76. Upon arrival to the room pt is at baseline with no complaints, B/P is 119/75. Pt states he felt as though he was going to faint but did not lose consciousness. Pt was NPO yesterday but ate this morning and is on IVF at 75cc/hr. Primary team is at bedside to discuss plan. Will consult cards d/t recent STEMI. DISPOSITIONS Improved Primary Team Notified: Yes PAST MEDICAL / SURGICAL HISTORY No past medical history on file. No past surgical history on file. Peripheral 08/27/22 06 External Facility Short Right Forearm 20 Gauge (Active) Placement Date/Time: 08/27/22 06 Line, Drain, Airway Placed by: (!) External Facility Type of Peripheral Line: Short Location: Right Insertion Site: Forearm Size: 20 Gauge PERTINENT DIAGNOSTICS Diagnostic Tests Reviewed: Most recent labs Primary Team Aware/Notified: Yes SIGNATURE: Claudy William APRN.CNP PATIENT NAME: Olaf Briones DATE: August 27, 2022 TIME: 9:11 AM Normal [facility] Magnesium SerPl-mCncon 08-27 Magnesium [Mass/Vol] 2.2 mg/dL Normal 1.7-2.3 [facility] Comment on above: Order Comment: Portia tay Type: BLOOD SPECIMENOrdering Facility: [facility] Address: [address] [place] [address] Performed By: #### 2 4321-2, 94034-0, 2777-1 ####[facility] LABCLIA [id number] [address] Monitor Recordon 08-27-2022 Monitor Record [id number]:127 Normal [facility] PT panel Coag (PPP)on 2022 INR Coag (PPP) [Relative time] 1.0 {INR} Normal 0.9-1.3 [facility] Comment on above: Order Comment: Portia tay Type: BLOOD SPECIMENOrdering Facility: [facility] Address: [address] [place] [address] Result Comment: Mago min K Antagonist (VKA) Therapeutic Range: INR 2 to 3 (Target INR of 2.5) Note: For patients treated with VKA drugs, such as warfarin, the [place] [employer] 2012 Guideline recommends a therapeutic INR range of 2 to 3 (target INR of 2.5). This recommendation includes high-risk patients with antiphospholipid syndrome with previous arterial or venous thromboembolism, current-generation mechanical or bioprosthetic aortic heart valve replacement. Note: Patients with mechanical aortic valve replacement and additional risk factors for thromboembolic events (atrial fibrillation, previous thromboembolism, LV dysfunction, hypercoagulable conditions) or an older generation mechanical AVR (i.e., ball in-Cage) or any mechanical MVR should have a INR therapeutic range of 2.5 to 3.5 (target INR of 3). David GH, et al. Chest 2012, 141:7S-47S Daniel RA, et al. [facility] 2017, 70: 252-289 Performed By: #### 3 4528-0, 49303-9 ####[facility] LABCLIA [id number] [place] [address] [place] PT Coag (PPP) [Time] 10.4 s Normal 9.7-13.0 [facility] Comment on above: Order Comment: Speci men Type: BLOOD SPECIMENOrdering Facility: [facility] Address: [address] [place], [place] [address] Performed By: #### 3 4528-0, 27312-9 ####[facility] LABIA [id number] [address] [place] Phosphate SerPl-mCncon 08-27 Phosphate [Mass/Vol] 3.7 mg/dL Normal 2.7-4.8 [facility] Comment on above: Order Comment: Speci men Type: BLOOD SPECIMENOrdering Facility: [facility] Address: [address] [place] [address] Performed By: #### 2 4321-2, 21468-2, 2777-1 ####[facility] LABIA [id number] [place] [address] [place] RAD - Preliminary Cat Scan R eporton 08-27-2022 RAD - Preliminary Cat Scan Report [id number]#[id number]:127 Normal [facility] TYPE + SCREENon 08-27-2022 ABO O Normal [facility] Comment on above: Order Comment: Speci men Type: BLOOD SPECIMENOrdering Facility: [facility] Address: [address] [place] [address] Performed By: #### T SCR ####[facility] BLOOD BANKCLIA [id number] [address] HISTORICAL AB SCR STATUS Negative Normal [facility] Comment on above: Order Comment: Speci men Type: BLOOD SPECIMENOrdering Facility: [facility] Address: [address] [place] [address] Performed By: #### T SCR ####[facility] BLOOD BANKCLIA [id number] [address] Rh Nom (Bld) Positive Normal [facility] Comment on above: Order Comment: Speci men Type: BLOOD SPECIMENOrdering Facility: [facility] Address: [address] [place] [address] Performed By: #### T SCR ####[facility] BLOOD BANKCLIA [id number] [address] TYPE AND SCREEN EXPIRATION 08/30/2022 23:59 Normal [facility] Comment on above: Order Comment: Speci men Type: BLOOD SPECIMENOrdering Facility: [facility] Address: [address] [place] [address] Performed By: #### T SCR ####[facility] BLOOD BANKCLIA [id number] [address] [place] Transfer Documentson 023 Transfer Documents [id number]#[id number]:127 Normal [facility] aPTT PPPon 08-27-2022 aPTT Coag (PPP) [Time] 28.7 s Normal 23.0-32.4 [facility] Comment on above: Order Comment: Speci men Type: BLOOD SPECIMENOrdering Facility: [facility] Address: [address] [place] [address] Performed By: #### 3 4528-0, 01869-7 ####[facility] LABCLIA [id number] [address] Auto Diffon 08-26-2022 Basophils/100 WBC (Bld) 0.5 % Normal 0.0-2.0 [facility] Comment on above: Order Comment: Order Added by Discern Expert. Performed By: #### 2 197267, 07565391, 4485342, 91390980, 1367163 #### [facility] [address] [place] [address] Basophils/Leukocytes Auto (Bld) [Pure # fraction] 0.1 E9/L Normal 0.0-0.2 [facility] Comment on above: Order Comment: Order Added by Discern Expert. Performed By: #### 2 713228, 77999604, 0900759, 21428745, 7401955 #### [facility] [address] [place] [address] Eosinophils/100 WBC (Bld) 0.9 % Normal 0.0-8.0 [facility] Comment on above: Order Comment: Order Added by Discern Expert. Performed By: #### 2 879565, 79886845, 2835162, 99444823, 1607591 #### [facility] [address] [place] [address]365 Eosinophils/Leukocytes Auto (Bld) [Pure # fraction] 0.1 E9/L Normal 0.0-0.5 [facility] Comment on above: Order Comment: Order Added by Discern Expert. Performed By: #### 2 285656, 43608925, 7453102, 10372012, 6517666 #### [facility] [address] [place] [address] 04808 Lymphocytes/100 WBC (Bld) 6.1 % Low 14.0-50.0 [facility] Comment on above: Order Comment: Order Added by Discern Expert. Performed By: #### 2 113671, 78745538, 7739174, 89025104, 1034758 #### [facility] [address] [place] [address] 84995 Lymphocytes/Leukocytes Auto (Bld) [Pure # fraction] 0.9 E9/L Low 1.0-4.0 [facility] Comment on above: Order Comment: Order Added by Discern Expert. Performed By: #### 2 464891, 22781279, 6479144, 70636562, 1862722 #### [facility] [address] [place] [address] Monocytes/100 WBC (Bld) 4.9 % Normal 4.0-14.0 [facility] Comment on above: Order Comment: Order Added by Discern Expert. Performed By: #### 2 716790, 45441420, 7377180, 77415107, 5708978 #### [facility] [address] [place] [address] Monocytes/Leukocytes Auto (Bld) [Pure # fraction] 0.8 E9/L Normal 0.2-1.0 [facility] Comment on above: Order Comment: Order Added by Leticia Expert. Performed By: #### 2 662876, 89893310, 8753589, 45294953, 3358781 #### [facility] [address] [place] [address]104 Neutrophils/100 WBC (Bld) 87.6 % High 36.0-75.0 [facility] Comment on above: Order Comment: Order Added by Leticia Expert. Performed By: #### 2 750765, 81184804, 6423419, 54724418, 5981896 #### [facility] [address] [place] [address] Neutrophils/Leukocytes Auto (Bld) [Pure # fraction] 13.5 E9/L High 2.0-7.5 [facility] Comment on above: Order Comment: Order Added by Leticia Expert. Performed By: #### 2 820727, 82928193, 0581037, 58719569, 0045253 #### [facility] [address] [place] [address] BMPon 08-26-2022 Creatinine [Mass/Vol] 0.9 mg/dL Normal 0.5-1.3 [facility] Comment on above: Performed By: #### 2 006459, 26260582, 3416464, 09360289, 9583425 #### [facility] [address] [place] [address] Urea nitrogen [Mass/Vol] 18 mg/dL Normal 5-21 [facility] Comment on above: Performed By: #### 2 395811, 78359358, 9689140, 76942012, 9270017 #### [facility] [address] [place] [address] Urea nitrogen/Creatinine [Mass ratio] 20 No Units Normal 10-20 [facility] Comment on above: Performed By: #### 2 272485, 90854284, 0006701, 12660190, 3196951 #### [facility] [address] [place] [address] Anion gap [Moles/Vol] 13 mmol/L Normal 6-16 [facility] Comment on above: Performed By: #### 2 132971, 57360581, 6959056, 28921432, 1028564 #### [facility] [address] [place] [address] Calcium [Mass/Vol] 8.9 mg/dL Normal 8.9-11.1 [facility] Comment on above: Performed By: #### 2 519842, 10350240, 4174896, 29718378, 4836555 #### [facility] [address] [place] [address] Chloride [Moles/Vol] 105 mmol/L Normal 101-111 [facility] Comment on above: Performed By: #### 2 485702, 89702339, 5088734, 99654033, 2526045 #### [facility] [address] [place] [address] CO2 [Moles/Vol] 24 mmol/L Normal 21-31 [facility] Comment on above: Performed By: #### 2 070912, 04472791, 0322208, 97409138, 6967888 #### [facility] [address] [place] [address] Glucose [Mass/Vol] 154 mg/dL Normal 55-199 [facility] Comment on above: Result Comment: If t his glucose result represents a fasting glucose, interpretation should refer to the following reference range: 55-99 mg/dL Performed By: #### 2 541426, 29170310, 7344776, 30443804, 5693642 #### [facility] [address] [place] [address] Potassium [Moles/Vol] 4.0 mmol/L Normal 3.5-5.3 [facility] Comment on above: Performed By: #### 2 638536, 98076103, 7926522, 42890608, 9785710 #### [facility] [address] [place] [address] Sodium [Moles/Vol] 138 mmol/L Normal 135-145 [facility] Comment on above: Performed By: #### 2 390430, 12147087, 8366994, 74347898, 8206460 #### [facility] [address] [place] [address] CBC w/ Auto Diffon 3 Erythrocyte distribution width (RBC) [Ratio] 13.4 % Normal 10.9-14.2 [facility] Comment on above: Performed By: #### 2 552647, 15139864, 9859105, 13126197, 7055200 #### [facility] [address] [place] [address] Hematocrit (Bld) [Volume fraction] 40.9 % Normal 37.7-49.0 [facility] Comment on above: Performed By: #### 2 786288, 81085316, 4772200, 04480065, 8928705 #### [facility] [address] [place] [address] Hemoglobin (Bld) [Mass/Vol] 14.0 g/dL Normal 13.5-17.5 [facility] Comment on above: Performed By: #### 2 479878, 47406254, 0307524, 80560118, 0359240 #### [facility] [address] [place] [address] MCH (RBC) [Entitic mass] 31.3 pg Normal 27.0-34.0 [facility] Comment on above: Performed By: #### 2 758474, 04032346, 2104840, 43394397, 0093472 #### [facility] [address] [place] [address] MCHC (RBC) [Mass/Vol] 34.1 g/dL Normal 31.4-36.0 [facility] Comment on above: Performed By: #### 2 922783, 17394560, 6302614, 89469840, 5021742 #### [facility] [address] [place] [address]805 MCV (RBC) [Entitic vol] 91.9 fL Normal 80.0-100.0 [facility] Comment on above: Performed By: #### 2 198772, 84709485, 7266232, 63157495, 4113543 #### [facility] [address] [place] [address] 31177 Platelet mean volume (Bld) [Entitic vol] 9.6 fL Normal 6.4-10.8 [facility] Comment on above: Performed By: #### 2 481030, 44069093, 4814291, 55255457, 0296411 #### [facility] [address] [place] [address]393 Platelets (Bld) [#/Vol] 194.0 E9/L Normal 150. 0-500. 0 [facility] Comment on above: Performed By: #### 2 829367, 47682863, 1991373, 14818482, 7987252 #### [facility] [address] [place] [address] 39285 RBC (Bld) [#/Vol] 4.4 E12/L Normal 4.3-5.9 [facility] Comment on above: Performed By: #### 2 376765, 40686638, 1556968, 41408999, 2747864 #### [facility] [address] [place] [address] WBC corrected for nucl RBC Auto (Bld) [#/Vol] 15.5 E9/L High 4.0-11.0 [facility] Comment on above: Performed By: #### 2 840071, 47822197, 6907431, 26960434, 0964142 #### [facility] [address] [place] [address] CHEMISTRYOrdered By: SYSTEM SYSTEM on 08-26-2022 Anion gap [Moles/Vol] 13 mmol/L Normal 6 - 16 mEq/L [facility] Calcium [Mass/Vol] 8.9 mg/dL Normal 8.9 - 11. 1 mg/dL [facility] Chloride [Moles/Vol] 105 mmol/L Normal 101 - 1 11 mmol/L [facility] CO2 [Moles/Vol] 24 mmol/L Normal 21 - 31 mmol/L [facility] Creatinine [Mass/Vol] 0.9 mg/dL Normal 0.5 - 1.3 mg/dL [facility] GFR/1.73 sq M.predicted among non-blacks MDRD (S/P/Bld) [Vol rate/Area] 88 mL/min/1.73 m2 Normal >=59mL/min /1.73 m2 [facility] Chem S Glucose [Mass/Vol] 154 mg/dL Normal 55 - 199 mg/dL [facility] Potassium [Moles/Vol] 4.0 mmol/L Normal 3.5 - 5.3 mmol/L [facility] Sodium [Moles/Vol] 138 mmol/L Normal 135 - 145 mmol/L [facility] Urea nitrogen [Mass/Vol] 18 mg/dL Normal 5 - 21 mg/dL [facility] Urea nitrogen/Creatinine [Mass ratio] 20 mg/mg Normal 10 - 20 [facility] COAGULATIONOrdered By: Jordan Harp on 08-26-2022 aPTT Coag (PPP) [Time] 31.1 s Normal 25.1 - 36.5 second(s) [facility] Auto Coag INR Coag (PPP) [Relative time] 1.2 {INR} Invalid Interpretation Code [facility] Auto Coag PT Coag (PPP) [Time] 12.8 s High 9.4 - 1 2.5 second(s) [facility] Auto Coag Consent for Treatmenton Consent for Treatment [id number]#1.00CD:127 Normal [facility] ED Note-Physicianon 08-27-19 ED Note-Physician Basic Information Time Seen: Keith Panchal M.D. 08/26/2022 17:07 Chief Complaint pt to ER with c/o lower pelvic pain and blood clots in urine that started saturday. history of kidney stones. just had a stent placed last saturday at [facility]. sees dr ivory History of Present Illness The patient is a 77-year-old male past medical history of coronary artery disease status post cardiac stent on Saturday who presented to the emergency room with unable to urinate. The patient stated the last time he urinated was at noon time. He states on Saturday he had a cardiac stents and he started aspirin and Brilinta on Saturday. The patient states he is passing some clots, however now he is not able to urinate at all. The patient is complaining of pain on the suprapubic region as well as lower back pain. He thinks that this can be a kidney stone. He states last kidney stone he passed was 5 to 6 years ago. He is complaining of lower back pain as well. The patient states he has history of enlarged prostate in the past. The patient denies any other associated symptoms. Review of Systems Additional ROS info: Except as noted in the above Review of Systems and in the History of Present Illness all other systems have been reviewed and are negative or noncontributory. Physical Exam Vitals & Measurements T: 36.5 ?C(Oral) HR: 63(Monitored) RR: 18 BP: 131/69 SpO2: 96% HT: 172 cm WT: 78.2 kg BMI: 26.43 General: alert, no acute distress Skin: warm, dry Head: no trauma, normocephalic Neck: Trachea midline Eye: normal conjunctiva, sclera clear Cardiovascular: regular rate and rhythm Respiratory: Lungs CTA, respirations non labored, breath sounds equal Gastrointestinal: soft, non distended, moderate tenderness to pubic region Extremities: no deformity, no trauma Neurological: Alert and oriented, CN II-XII intact, motor strength equal & normal bilaterally, sensation equal & normal bilaterally, speech normal, no focal neuro deficits, normal coordination Psychiatric: cooperative, affect appropriate for age, Medical Decision Making MEDICAL DECISION MAKING Number and Complexity of Problems Differential Diagnosis: [] [facility] Data External documents reviewed: [] My EKG interpretation: [] My CT interpretation: [] My X-ray interpretation: [] My Ultrasound interpretation: [] Decision rules/scores evaluated: [] Discussed with: [] Treatment and Disposition ED Course: The patient presented with unable to urinate. He states he had been passing some clots earlier today. Bladder scan showed over 500 mils of urine in the bladder. Three-way Hernandez catheter placed and gross hematuria came out. Initially the bladder was irrigated with a liter of saline and he continued to be bright red blood. The blood work reviewed. He does have elevated leukocytosis. Urine shows infection. He was started on Rocephin. The care of the patient was transitioned to Dr. Salas upon shift change to follow-up with the final disposition. Shared decision making: [] Code status: [] Assessment/Plan 1. Urinary retention (R33.9: Retention of urine, unspecified) 2. Gross hematuria (R31.0: Gross hematuria) 3. Urinary tract infection (N39.0: Urinary tract infection, site not specified) Orders: ceftriaxone + Sodium Chloride 0.9% intravenous solution 50 mL, 1,000 mg = 1 EA, IV Piggyback, Once, Stop date 08/26/22 19:18:00 EDT, STAT, Start date 08/26/22 19:18:00 EDT, 100 mL/hr, Infuse over 30 minute(s), 08/26/22 19:18:00 EDT Sodium Chloride 0.9% intravenous solution, Soln-IV, Misc, Once, Stop date 08/26/22 18:33:53 EDT, Physician Stop, 08/26/22 18:33:53 EDT Automated Diff Basic Metabolic Panel Bladder Scan CBC w/ Auto Diff eGFR PT & PTT Urinary Catheter Insertion Disposition Plan Discharge Prescription List Prescriptions No active prescription medications Follow-up No qualifying data available Problem List/Past Medical History Ongoing Asymptomatic microscopic hematuria BPH with urinary obstruction BPH without urinary obstruction Diabetes Gross hematuria Hypertension Kidney stone Microscopic hematuria Prostatitis Weak urinary stream Historical No qualifying data Procedure/Surgical History Cystoscopy (08/18/2013), TURP - Transurethral resection of prostate (2006), Urodynamics (2006), Transrectal biopsy of prostate using ultrasound (US) guidance (2005), ESWL - Extracorporeal shockwave lithotripsy for renal calculus (2000). Medications Inpatient No active inpatient medications Home allopurinol 300 mg Tab, 300 mg= 1 tab(s), Oral, Daily amLODIPine 5 mg Tab, 5 mg= 1 tab(s), Oral, Daily diclofenac sodium 75 mg Oral EC Tab, 75 mg= 1 tab(s), Oral, BID metoprolol 25 mg ER Tab, 25 mg= 1 tab(s), Oral, Daily rosuvastatin 20 mg Tab, 10 mg= 0.5 tab(s), Oral, Daily Allergies Bactrim (Unknown) albuterol (Headache) hydroCHLOROthiazide (Rash) Social History Alcohol - Denies Alcohol Use, (more content not included)... Normal [facility] Comment on above: Result Comment: Elec tronically Signed By: Abdulkadir Villatoro, Keith Arnold\.portia\Date and Time Signed: 08/26/22 19:20 EDT HEMATOLOGYOrdered By: SYSTEM SYSTEM on 08-26-2022 Basophils/100 WBC (Bld) 0.5 % Normal 0.0 - 2.0 % [facility] HemeAutoSS Basophils/Leukocytes Auto (Bld) [Pure # fraction] 0.1 E9/L Normal 0.0 - 0.2 E9/L [facility] HemeAutoSS Eosinophils/100 WBC (Bld) 0.9 % Normal 0.0 - 8.0 % [facility] HemeAutoSS Eosinophils/Leukocytes Auto (Bld) [Pure # fraction] 0.1 E9/L Normal 0.0 - 0.5 E9/L [facility] HemeAutoSS Lymphocytes/100 WBC (Bld) 6.1 % Low 14.0 - 50.0 % [facility] HemeAutoSS Lymphocytes/Leukocytes Auto (Bld) [Pure # fraction] 0.9 E9/L Low 1.0 - 4.0 E9/L [facility] HemeAutoSS Monocytes/100 WBC (Bld) 4.9 % Normal 4.0 - 14.0 % [facility] HemeAutoSS Monocytes/Leukocytes Auto (Bld) [Pure # fraction] 0.8 E9/L Normal 0.2 - 1.0 E9/L [facility]eAutoSS Neutrophils/100 WBC (Bld) 87.6 % High 36.0 - 75.0 % [facility]eAutoSS Neutrophils/Leukocytes Auto (Bld) [Pure # fraction] 13.5 E9/L High 2.0 - 7.5 E9/L [facility] HemeAutoSS HEMATOLOGYOrdered By: Jani Hardy on 08-26-2022 Erythrocyte distribution width (RBC) [Ratio] 13.4 % Normal 10.9 - 14.2 % [facility] Hematocrit (Bld) [Volume fraction] 40.9 % Normal 37.7 - 49.0 % [facility] Hemoglobin (Bld) [Mass/Vol] 14.0 g/dL Normal 13.5 - 17.5 gm/dL [facility] MCH (RBC) [Entitic mass] 31.3 pg Normal 27.0 - 34.0 pg [facility] MCHC (RBC) [Mass/Vol] 34.1 g/dL Normal 31.4 - 36.0 gm/dL [facility] MCV (RBC) [Entitic vol] 91.9 fL Normal 80.0 - 100.0 fL [facility] Platelet mean volume (Bld) [Entitic vol] 9.6 fL Normal 6.4 - 10.8 fL [facility]eAuto[facility] Platelets (Bld) [#/Vol] 194.0 E9/L Normal 150. 0 - 500.0 E9/L [facility] RBC (Bld) [#/Vol] 4.4 E12/L Normal 4.3 - 5.9 E12/L [facility] WBC corrected for nucl RBC Auto (Bld) [#/Vol] 15.5 E9/L High 4.0 - 11.0 E9/L [facility] HemeAutoSS Laboratory - Microbiology an d Antimicrobial susceptibilityOrdered By: Jaye Bishop on 08-26-2022 Bacteria identified Cx Nom (U) No growth to date [facility] Monitor Recordon 08-26-2022 Monitor Record [id number]#[id number]:127 Normal [facility] Monitor Record [id number]#[id number]:127 Normal [facility] PT & PTTon 08-26-2022 aPTT Coag (PPP) [Time] 31.1 second(s) Normal 25.1-36.5 [facility] Comment on above: Result Comment: Para meter 15 days - 4 weeks 1 - 5 months 6 - 11 months 1 - 5 years 6 - 10 years 11 - 17 years PTT Mean: 35.4 (27.6-45.6) Mean: 33.5 (24.8-40.7) Mean: 32.4 (25.1-40.7) Mean: 31.6 (24.0-39.2) Mean: 31.6 (26.9-38.7) Mean: 31.0 (24.6-38.4) Pediatric Reference ranges were obtained from a study by kayla Thorpe al. prepared from 1437 samples obtained at 7 different centers using the same coagulation reagent and instrumentation as [facility]. Currently there are no coagulation studies available worldwide for children to 14 days, and no normal ranges. Heparin therapeutic range (represented by Anti-Factor Xa activity of 0.2 - 0.4 U/mL) corresponds to PTT of 56.6 - 109.0 sec. Performed By: #### 2 218217, 51101906, 0819441, 78397352, 3809229 #### [facility] [address] [place] [address] INR Coag (PPP) [Relative time] 1.2 {INR} Invalid Interpretation Code [facility] Comment on above: Result Comment: INR results are specifically intended to assess patients stabilized on long-term Anticoagulation therapy suggested INR?s ?Less Intensive Anticoagulation? 2.0 ? 3.0 Conventional Range 3.0 ? 4.5 Performed By: #### 2 955227, 78795805, 5084399, 82852143, 9269983 #### [facility] [address] [place] [address] PT Coag (PPP) [Time] 12.8 second(s) High 9.4-12.5 [facility] Comment on above: Result Comment: 15 d ays - 4 weeks 1 - 5 months 6 -11 months 1 ? 5 years 6 ? 10 years 11 -17 years Mean: 11.2 (9.5 ? 12.6) Mean: 11.0 (9.7 ? 12.8) Mean: 11.0 (9.8 ? 13.0) Mean: 11.3 (9.9 ? 13.4) Mean: 11.7 (10.0 ? 14.6) Mean: 11.8 (10.0 - 14.1) Pediatric Reference ranges were obtained from a study by Oren Hester et al. prepared from 1437 samples obtained at 7 different centers using the same coagulation reagent and instrumentation as [facility]. Currently there are no coagulation studies available worldwide for children to 14 days, and no normal ranges. Performed By: #### 2 679914, 81196698, 5850457, 37267884, 6195845 #### [facility] [address] [place] [address] UA With Cult Reflexon 2022 Bacteria LM Ql (Urine sed) 1+ /HPF Abnormal Trace [facility] Comment on above: Order Comment: Urina ry Catheter Insertion triggered Urinalysis With Culture Reflex order by discern. Performed By: #### 2 123359, 82142676, 3095289, 79520153, 5071984 #### [facility] [address] [place] [address] Bilirubin Ql (U) Negative Normal Negative [facility] Comment on above: Order Comment: Urina ry Catheter Insertion triggered Urinalysis With Culture Reflex order by discern. Performed By: #### 2 283029, 61385579, 1612977, 37472979, 9532941 #### [facility] [address] [place] [address] Clarity (U) CLOUDY Abnormal Clear [facility] Comment on above: Order Comment: Urina ry Catheter Insertion triggered Urinalysis With Culture Reflex order by discern. Performed By: #### 2 197625, 69071316, 7528208, 84404291, 3344282 #### [facility] [address] [place] [address] Color (U) RED Abnormal Yellow [facility] Comment on above: Order Comment: Urina ry Catheter Insertion triggered Urinalysis With Culture Reflex order by discern. Performed By: #### 2 657281, 66104267, 6798422, 36109629, 4092956 #### [facility] [address] [place] [address] Epithelial cells.squamous LM.HPF (Urine sed) [#/Area] 0-2 Normal 0-2 [facility] Comment on above: Order Comment: Urina ry Catheter Insertion triggered Urinalysis With Culture Reflex order by discern. Performed By: #### 2 557554, 20511975, 7874122, 53358389, 9607223 #### [facility] [address] [place] [address] Glucose Test strip (U) [Mass/Vol] TRACE Abnormal Negative [facility] Comment on above: Order Comment: Urina ry Catheter Insertion triggered Urinalysis With Culture Reflex order by discern. Performed By: #### 2 070152, 92113464, 5616623, 86055123, 4868045 #### [facility] [address] [place] [address] Hemoglobin Ql (U) 3+ Abnormal Negative [facility] Comment on above: Order Comment: Urina ry Catheter Insertion triggered Urinalysis With Culture Reflex order by discern. Performed By: #### 2 122484, 90652036, 2372273, 04694755, 4049711 #### [facility] [address] [place] [address] Ketones (U) [Mass/Vol] 1+ Abnormal Negative [facility] Comment on above: Order Comment: Urina ry Catheter Insertion triggered Urinalysis With Culture Reflex order by discern. Performed By: #### 2 260555, 53784449, 7916430, 11380990, 6689647 #### [facility] [address] [place] [address] [place].plasma/[place]. RBC (Bld) [Mass ratio] >75 Abnormal 0-3 [facility] Comment on above: Order Comment: Urina ry Catheter Insertion triggered Urinalysis With Culture Reflex order by discern. Performed By: #### 2 140515, 27942049, 9874840, 68656417, 2306432 #### [facility] [address] [place] [address] Mucus Ql (Urine sed) 1+ Normal [facility] Comment on above: Order Comment: Urina ry Catheter Insertion triggered Urinalysis With Culture Reflex order by discern. Performed By: #### 2 [id number], [id number], [id number], [id number], [id number] #### [facility] [address] [place] [address] Nitrite Ql (U) Positive Abnormal Negative [facility] Comment on above: Order Comment: Urina ry Catheter Insertion triggered Urinalysis With Culture Reflex order by discern. Performed By: #### 2 [id number], [id number], [id number], [id number], [id number] #### [facility] [address] [place] [address] pH (U) 7.5 [pH] Invalid Interpretation Code 5.0-9.0 [facility] Comment on above: Order Comment: Urina ry Catheter Insertion triggered Urinalysis With Culture Reflex order by discern. Performed By: #### 2 [id number], [id number], [id number], [id number], [id number] #### [facility] [address] [place] [address] Protein (U) [Mass/Vol] 3+ Abnormal Negative [facility] Comment on above: Order Comment: Urina ry Catheter Insertion triggered Urinalysis With Culture Reflex order by discern. Performed By: #### 2 476715, [id number], [id number], [id number], [id number] #### [facility] [address] [place] [address] Specific gravity (U) [Rel density] 1.015 Invalid Interpretation Code 1.005-1.03 0 [facility] Comment on above: Order Comment: Urina ry Catheter Insertion triggered Urinalysis With Culture Reflex order by discern. Performed By: #### 2 [id number], [id number], [id number], [id number], [id number] #### [facility] [address] [place] [address] Type of Urine collection method Catheter Normal [facility] Comment on above: Order Comment: Urina ry Catheter Insertion triggered Urinalysis With Culture Reflex order by discern. Performed By: #### 2 007936, [id number], [id number], [id number], [id number] #### [facility] [address] [place] [id number] Urobilinogen Qn (U) >=8.0 Abnormal 0.0-1.0 [facility] Comment on above: Order Comment: Urina ry Catheter Insertion triggered Urinalysis With Culture Reflex order by discern. Performed By: #### 2 438829, [id number], [id number], [id number], [id number] #### [facility] [address] [place] [address] WBC Auto Ql (U) 2+ Abnormal Negative [facility] Comment on above: Order Comment: Urina ry Catheter Insertion triggered Urinalysis With Culture Reflex order by discern. Performed By: #### 2 349704, [id number], [id number], [id number], [id number] #### [facility] [address] [place] [address] WBC LM.HPF (Urine sed) [#/Area] 16-25 Abnormal 0-5 [facility] Comment on above: Order Comment: Urina ry Catheter Insertion triggered Urinalysis With Culture Reflex order by discern. Performed By: #### 2 036945, [id number], [id number], [id number], [id number] #### [facility] [address] [place] [address] URINALYSISOrdered By: Jordan quintaan on 08-26-2022 Bacteria LM Ql (Urine sed) 1+ /HPF Invalid Interpretation Code Trace/HPF [facility] UA Auto SS Bilirubin Ql (U) Negative (08/26/22 6:58 PM) Normal Negative [facility] UA Auto SS Clarity (U) Cloudy *ABN* (08/26/22 6:58 PM) Invalid Interpretation Code Clear [facility] UA Auto SS Color (U) Red *ABN* (08/26/22 6:58 PM) Invalid Interpretation Code Yellow [facility] UA Auto SS Epithelial cells.squamous LM.HPF (Urine sed) [#/Area] 0-2 /HPF Normal 0-2/HPF [facility] UA Auto SS Glucose Test strip (U) [Mass/Vol] Trace *ABN* (08/26/22 6:58 PM) Invalid Interpretation Code Negative [facility] UA Auto SS Hemoglobin Ql (U) 3+ *ABN* (08/26/22 6:58 PM) Invalid Interpretation Code Negative [facility] UA Auto SS Ketones (U) [Mass/Vol] 1+ *ABN* (08/26/22 6:58 PM) Invalid Interpretation Code Negative [facility] UA Auto SS [place].plasma/[place]. RBC (Bld) [Mass ratio] >75 /HPF Invalid Interpretation Code 0-3/HPF [facility] UA Auto SS Mucus Ql (Urine sed) 1+ (08/26/22 6:58 PM) Normal [facility] UA Auto SS Nitrite Ql (U) Positive *ABN* (08/26/22 6:58 PM) Invalid Interpretation Code Negative [facility] UA Auto SS pH (U) 7.5 *NA* (08/26/22 6:58 PM) Invalid Interpretation Code 5.0 - 9.0 [facility] UA Auto SS Protein (U) [Mass/Vol] 3+ *ABN* (08/26/22 6:58 PM) Invalid Interpretation Code Negative [facility] UA Auto SS Specific gravity (U) [Rel density] 1.015 *NA* (08/26/22 6:58 PM) Invalid Interpretation Code 1.005 - 1.030 [facility] UA Auto SS UA Spec Desc Catheter (08/26/22 6:58 PM) Normal [facility] UA Auto SS Urobilinogen Qn (U) {[place]'U}/dL Invalid Interpretation Code 0.0 - 1.0 EU/dL [facility] UA Auto SS WBC Auto Ql (U) 2+ *ABN* (08/26/22 6:58 PM) Invalid Interpretation Code Negative [facility] UA Auto SS WBC LM.HPF (Urine sed) [#/Area] 16-25 /HPF Invalid Interpretation Code 0-5/HPF [facility] Auto SS eGFRon 08-26-2022 GFR/1.73 sq M.predicted among non-blacks MDRD (S/P/Bld) [Vol rate/Area] 88 mL/min/1.73 m2 Normal >=59 [facility] Comment on above: Order Comment: Order added by Discern Expert. Result Comment: Hardboard Supervisor elio kidney disease could be indicated at eGFR's of less than 60 mL/min/1.73m2. Kidney failure is indicated at less than 15 mL/min/1.73m2. Performed By: #### 2 [id number], [id number], [id number], [id number], [id number] #### [facility] [address] [place] [address] Basic Metabolic Panelon Anion gap [Moles/Vol] 10.8 mmol/L Normal 6.0-15.0 [facility] Comment on above: Performed By: #### H S TROP #### [facility] [address] [place] [address] [place] Calcium [Mass/Vol] 9.0 mg/dL Normal 8.6-10.3 [facility] Comment on above: Performed By: #### H S TROP #### [facility] [address] [place] [address] [place] Chloride [Moles/Vol] 105 mmol/L Normal 98-107 [facility] Comment on above: Performed By: #### H S TROP #### [facility] [address] [place] [address] [place] CO2 [Moles/Vol] 26.0 mmol/L Normal 21.0-31.0 [facility] Comment on above: Performed By: #### H S TROP #### [facility] [address] [place] [address] [place] Creatinine [Mass/Vol] 0.79 mg/dL Normal 0.70-1.30 [facility] Comment on above: Performed By: #### H S TROP #### [facility] [address] [place] [address] [place] Creatinine Clr Calc Pharmacy 74.81 [facility] Comment on above: Result Comment: PERF ORMED BY: [place] [address] PATHOLOGIST FIBERGLASS MACHINE OPERATOR DREW REAL M.D. Performed By: #### H S TROP #### [address] GFR/1.73 sq M.predicted MDRD (S/P/Bld) [Vol rate/Area] mL/min/{1.73_m2} [facility] Comment on above: Performed By: #### H S TROP #### [address] Glucose [Mass/Vol] 133 mg/dL High 70-100 [facility] Comment on above: Result Comment: [place] Glucose Reference Range is dependent on time and content of last meal. Glucose of more than 200 mg/dL in a nonstressed, ambulatory subject supports the diagnosis of Diabetes Mellitus. ADA recommended reference range Performed By: #### H S TROP #### [address] Potassium [Moles/Vol] 3.8 mmol/L Normal 3.5-5.1 [facility] Comment on above: Performed By: #### H S TROP #### [place] [address] [place] Sodium [Moles/Vol] 138 mmol/L Normal 136-145 [facility] Comment on above: Performed By: #### H S TROP #### [facility] [address] [place] [address] Urea nitrogen [Mass/Vol] 20 mg/dL Normal 7-25 [facility] Comment on above: Performed By: #### H S TROP #### [place] [address] [place] Basophils Auto (Bld) [#/Vol] Ordered By: Steven Zamora on 08-22-2022 Basophils (Bld) [#/Vol] 0.0 10*3/uL 0.0-0.2 [facility] Basophils/100 WBC Auto (Bld) Ordered By: Steven Zamora on 08-22-2022 Basophils/100 WBC (Bld) 0.3 % . [facility] Calcium [Mass/volume] in Ser um or PlasmaOrdered By: Steven Zamora on 08-22-2022 Calcium [Mass/Vol] 9.0 mg/dL 8.6-10.3 [facility] Carbon dioxide, total [Moles /volume] in Serum or PlasmaOrdered By: Steven Zamora on 08-22-2022 CO2 [Moles/Vol] 26.0 mmol/L 21.0-31.0 [facility] Chloride [Moles/volume] in S jamin or PlasmaOrdered By: Steven Zamora on 08-22-2022 Chloride [Moles/Vol] 105 mmol/L 98-107 [facility] Complete Blood Count Auto Di ffon 08-22-2022 Basophils (Bld) [#/Vol] 0.0 10*3/uL Normal 0.0-0.2 [facility] Comment on above: Result Comment: PERF ORMED BY: [place] [address] PATHOLOGIST FIBERGLASS MACHINE OPERATOR DREW REAL M.D. Performed By: #### H S TROP #### [place] [address] [place] Basophils/100 WBC (Bld) 0.3 % Normal . [facility] Comment on above: Performed By: #### H S TROP #### [facility] [address] [place] [address] [place] Eosinophils (Bld) [#/Vol] 0.1 10*3/uL Normal 0.0-0.45 [facility] Comment on above: Performed By: #### H S TROP #### [place] [address] [place] Eosinophils/100 WBC (Bld) 1.6 % Normal . [facility] Comment on above: Performed By: #### H S TROP #### [place] [address] [place] Erythrocyte distribution width (RBC) [Ratio] 13.7 % Normal 12.0-14.8 [facility] Comment on above: Performed By: #### H S TROP #### [address] Hematocrit (Bld) [Volume fraction] 41.1 % Normal 38.8-50.0 [facility] Comment on above: Performed By: #### H S TROP #### [address] Hemoglobin (Bld) [Mass/Vol] 13.9 g/dL Normal 13.0-17.0 [facility] Comment on above: Performed By: #### H S TROP #### [address] Lymphocytes (Bld) [#/Vol] 1.4 10*3/uL Normal 1.00-4.8 [facility] Comment on above: Performed By: #### H S TROP #### [address] Lymphocytes/100 WBC (Bld) 15.9 % Normal . [facility] Comment on above: Performed By: #### H S TROP #### [address] MCH (RBC) [Entitic mass] 31.5 pg Normal 27.5-35.2 [facility] Comment on above: Performed By: #### H S TROP #### [address] MCV (RBC) [Entitic vol] 92.8 fL Normal 83.5-101 [facility] Comment on above: Performed By: #### H S TROP #### [address] Mean Corpuscular HGB Conc 33.9 g/dL Normal 32.5-35.6 [facility] Comment on above: Performed By: #### H S TROP #### [address] Monocytes (Bld) [#/Vol] 0.9 10*3/uL High 0.0-0.8 [facility] Comment on above: Performed By: #### H S TROP #### [facility] [address] [place] [address] [place] Monocytes/100 WBC (Bld) 9.7 % Normal . [facility] Comment on above: Performed By: #### H S TROP #### [facility] [address] Neutrophils (Bld) [#/Vol] 6.4 10*3/uL Normal 1.8-7.7 [facility] Comment on above: Performed By: #### H S TROP #### [facility] [address] Neutrophils/100 WBC (Bld) 72.5 % Normal . [facility] Comment on above: Performed By: #### H S TROP #### [facility] [address] NRBC% 0.1 /100{WBC} Normal 0-0.5 [facility] Comment on above: Performed By: #### H S TROP #### [facility] [address] Platelet mean volume (Bld) [Entitic vol] 9.6 fL Normal 6.6-10.1 [facility] Comment on above: Performed By: #### H S TROP #### [facility] [address] [place] [address] [place] Platelets (Bld) [#/Vol] 162 10*3/uL Normal 150-450 [facility] Comment on above: Performed By: #### H S TROP #### [facility] [address] [place] [address] [place] RBC (Bld) [#/Vol] 4.43 10*6/uL Normal 3.90-5.60 [facility] Comment on above: Performed By: #### H S TROP #### [facility] [address] [place] [address] WBC (Bld) [#/Vol] 8.8 10*3/uL Normal 4.1-10.5 [facility] Comment on above: Performed By: #### H S TROP #### [address] Creatinine [Mass/volume] in Serum or PlasmaOrdered By: Steven Zamora on 08-22-2022 Creatinine [Mass/Vol] 0.79 mg/dL 0.70-1.30 [facility] ECG 12 lead ECGon 08-22-2022 ECG 12 lead ECG [facility] [place] [address] Electrocardiograph Report Signed Patient: Olaf Briones MR#: [id number] 2 : 1945 Acct:[id number] Age/Sex: 77 / M ADM Date: 08/20/22 Loc: Room: [address] [place] [address] Type: ADM IN Attending Dr: Steven Zamora DO Ordering Provider: Steven Zamora DO Date of Service: 08/22/2207/10/499 ECG/ECG 12 lead ECG: Inferolateral STEMI Copies to: Test Reason : Blood Pressure : / mmHG Vent. Rate : 060 BPM Atrial Rate : 060 BPM P-R Int : 198 ms QRS Dur : 104 ms QT Int : 470 ms P-R-T Axes : 070 005 -50 degrees QTc Int : 470 ms Sinus rhythm with premature atrial complexes with aberrant conduction T wave abnormality, consider inferolateral ischemia Prolonged QT Abnormal ECG When compared with ECG of 21-AUG-2022 06:45, QRS axis shifted right Nonspecific T wave abnormality now evident in Anterior leads T wave inversion less evident in Lateral leads Confirmed by JOSHUA ATWOOD DO ([id number]) on 08/22/2022 9:06:34 AM Referred By: Electronically Signed By:JOSHUA ATWOOD DO Transcribed By: MUS Signed By Joshua Atwood DO 08/22 0906 [facility] ECH echo transthoracicon ECH echo transthoracic [facility] [address] [place] [id number] Echocardiogram Signed Patient: Olaf Briones MR#: [id number] 2 : 1945 Acct:[id number] Age/Sex: 77 / M ADM Date: 08/20/22 Loc: Room: 4E0034-0 Type: ADM IN Attending Dr: Steven aZmora DO Ordering Provider: Steven Zamora DO Date of Service: 08/21/2206/10/499 ECH/ECH echo transthoracic: Inferolateral STEMI Copies to: Rojas Resendiz MD, FACC Steven Zamora DO BSA: 1.9 m2 BP: 116/65 mmHg HR: 70 Reason For Study: Inferolateral STEMI History: PCI 08/20/22. HTN. HLD. Interpretation Summary Mild concentric left ventricular hypertrophy. Ejection Fraction = 65-70%. The left ventricular wall motion is normal. A variety of Doppler measurements indicate impaired left ventricular relaxation, which is associated with grade I/IV or mild diastolic dysfunction. The left atrium appears mildly dilated. There is no prior echocardiogram noted for this patient. Procedure/Quality: A two-dimensional transthoracic echocardiogram with color flow, Doppler and injection of contrast agent Definity was performed. The study was technically good in quality. There is no prior echocardiogram noted for this patient. Left Ventricle: Mild concentric left ventricular hypertrophy. Left ventricular systolic function is normal. Ejection Fraction = 65-70%. A variety of Doppler measurements indicate impaired left ventricular relaxation, which is associated with grade I/IV or mild diastolic dysfunction. The left ventricular wall motion is normal. Left Atrium: The left atrium appears mildly dilated. The atrial septum appears normal. Right Atrium: The right atrium appears normal in size. Right Ventricle: The right ventricular size, thickness and function are normal. Aortic Valve: The aortic valve is normal in structure and function. Mitral Valve: The mitral valve is mildly sclerotic. Tricuspid Valve: The tricuspid valve is normal. Pulmonic Valve: The pulmonic valve is not well visualized. Arteries: The aortic root is normal size. Pericardium/Pleura: No pericardial effusion seen. There is no pleural effusion. IVC/Hepatic Viens: The IVC is normal in size with an inspiratory collapse of greater then 50%, suggesting normal right atrial pressure. Miscellaneous: No thrombus, vegetation or mass is seen. Measurements with Normals IVSd: 1.3 cm (0.7-1.1 cm)LVIDd: 4.7 cm (3.7-5.4 cm) LVPWd: 1.2 cm (0.7-1.1 cm)LVIDs: 3.3 cm (2.3-3.6 cm) LA dimension: 4.1 cm (2.3-4.0 cm)Ao root diam: 3.7 cm(2.0-3.6 cm) asc Aorta Diam: 3.7 cm(2.1-3.4cm) Doppler with Normals LV V1 max: 104.1 cm/sec (0.7-1.7m/s)MV E max chela: 51.0 cm/sec(0.8-1.3m/s) MV A max chela: 79.7 cm/sec(0.0-0.0m/s) MV E/A: 0.64 (<1.5) MMode/2D Measurements Calculations TAPSE: 2.6 cm FS: 29.4 % Ao root area: LVOT diam: 2.3 cm RV S Chela: EDV(Teich): 10.5 cm2 LVOT area: 4.3 cm2 11.1 cm/sec 102.3 ml ESV(Teich): 44.7 ml EF(Teich): 56.3 % __ LVLd ap4: 9.4 cm SV(MOD-sp4): LAV(MOD-sp4): LA A2 area: 17.5 cm2 EDV(MOD-sp4): 96.6 ml 50.0 ml 160.0 ml LAV(MOD-sp2): LA A4 area: 20.1 cm2 LVLs ap4: 7.8 cm 43.6 ml LA length (vol): ESV(MOD-sp4): 6.5 cm 63.4 ml LA vol: 46.1 ml EF(MOD-sp4): 60.4 % LA vol index: 23.8 ml/m2 Doppler Measurements Calculations MV dec time: E/E' lat: 6.5 MV dec slope: Ao V2 max: 0.20 sec E/E' med: 8.6 126.2 cm/sec 260.9 cm/sec2 Ao max P.4 mmHg Ao mean P.3 mmHg Ao V2 mean: 85.6 cm/sec Ao V2 VTI: 27.1 cm MICHAEL(I,D): 3.4 cm2 MICHAEL(V,D): 3.5 cm2 __ LV V1 max PG: TV max PG: TR max chela: 4.3 mmHg 18.0 mmHg 210.4 cm/sec LV V1 mean PG: TR max P.7 mmHg 2.5 mmHg LV V1 mean: 75.9 cm/sec LV V1 VTI: 21.3 cm Transcribed By: SCV Performed At: 08/22/22 0837 Signed By: Rojas Resendiz MD, [facility] 08/22/22 1514 Normal [facility] Eosinophils Auto (Bld) [#/Vo l]Ordered By: Steven Zamora on 08-22-2022 Eosinophils (Bld) [#/Vol] 0.1 10*3/uL 0.0-0.45 [facility] Eosinophils/100 WBC Auto (Bl d)Ordered By: Steven Zamora on 08-22-2022 Eosinophils/100 WBC (Bld) 1.6 % . [facility] Erythrocyte distribution wid th Auto (RBC) [Ratio]Ordered By: Steven Zamora on 08-22-2022 Erythrocyte distribution width (RBC) [Ratio] 13.7 % 12.0-14.8 [facility] Glucose [Mass/volume] in Ser um or PlasmaOrdered By: Steven Zamora on 08-22-2022 Glucose [Mass/Vol] 133 mg/dL 70-100 [facility] Comment on above: ADA recommended refe rence rangeRandom Glucose Reference Range is dependent on time and content of last meal. Glucose of more than 200 mg/dL in a nonstressed, ambulatory subject supports the diagnosis of Diabetes Mellitus. Hematocrit Auto (Bld) [Volum e fraction]Ordered By: Steven Zamora on 08-22-2022 Hematocrit (Bld) [Volume fraction] 41.1 % 38.8-50.0 [facility] Hemoglobin [Mass/volume] in BloodOrdered By: Steven Zamora on 08-22-2022 Hemoglobin (Bld) [Mass/Vol] 13.9 g/dL 13.0-17.0 [facility] Leukocytes [#/volume] correc betty for nucleated erythrocytes in Blood by Automated counOrdered By: Steven Zamora on 08-22-2022 WBC corrected for nucl RBC Auto (Bld) [#/Vol] 8.8 10*3/uL 4.1-10.5 [facility] Lymphocytes Auto (Bld) [#/Vo l]Ordered By: Steven Zamora on 08-22-2022 Lymphocytes (Bld) [#/Vol] 1.4 10*3/uL 1.00-4.8 [facility] Lymphocytes/100 WBC Auto (Bl d)Ordered By: Steven Zamora on 08-22-2022 Lymphocytes/100 WBC (Bld) 15.9 % . [facility] MCH Auto (RBC) [Entitic mass ]Ordered By: Steven Zamora on 08-22-2022 MCH (RBC) [Entitic mass] 31.5 pg 27.5-35.2 [facility] MCHC Auto (RBC) [Mass/Vol]Or dered By: Steven Zamora on 08-22-2022 MCHC (RBC) [Mass/Vol] 33.9 g/dL 32.5-35.6 [facility] MCV Auto (RBC) [Entitic vol] Ordered By: Steven Zamora on 08-22-2022 MCV (RBC) [Entitic vol] 92.8 fL 83.5-101 [facility] Monocytes Auto (Bld) [#/Vol] Ordered By: Steven Zamora on 08-22-2022 Monocytes (Bld) [#/Vol] 0.9 10*3/uL 0.0-0.8 [facility] Monocytes/100 WBC Auto (Bld) Ordered By: Steven Zamora on 08-22-2022 Monocytes/100 WBC (Bld) 9.7 % . [facility] Neutrophils Auto (Bld) [#/Vo l]Ordered By: Steven Zamora on 08-22-2022 Neutrophils (Bld) [#/Vol] 6.4 10*3/uL 1.8-7.7 [facility] Neutrophils/100 WBC Auto (Bl d)Ordered By: Steven Zamora on 08-22-2022 Neutrophils/100 WBC (Bld) 72.5 % . [facility] No Panel InformationOrdered By: Steven Zamora on 08-22-2022 Estimated GFR (CKD-EPI) > 60.0 mL/Min [facility] Creatinine Clearance (Chem 74.81 [facility] No Panel Informationon 08-22 0.0\S\0.0 Normal 0.0-0.2 [facility]-Sandu eduardo 250 DO Work Phone: Comment on above: PERFORMED BY:[place] [id number] [place] [id number] MEDICAL DIRECTORDREW REAL M.D. 0.1\S\0.1 Normal 0-0.5 [facility]-Sandu eduardo 250 DO Work Phone: [phone] 0.9\S\0.9 above high threshold 0.0-0.8 [facility] eduardo 250 DO Work Phone: [phone] 1.4\S\1.4 Normal 1.00-4.8 [facility]-Sandu eduardo 250 DO Work Phone: [phone] 6.4\S\6.4 Normal 1.8-7.7 [facility]-Sandu eduardo 250 DO Work Phone: [phone] 0.3\S\0.3 Normal . [facility]u eduardo 250 DO Work Phone: [phone] 1.6\S\1.6 Normal . [facility]-Sand[facility] eduardo 250 DO Work Phone: [phone] 9.7\S\9.7 Normal . [facility] eduardo 250 DO Work Phone: [phone] 15.9\S\15.9 Normal . [facility]-Sandu eduardo 250 DO Work Phone: [phone] 72.5\S\72.5 Normal . [facility] eduardo 250 DO Work Phone: [phone] 9.6\S\9.6 Normal 6.6-10.1 [facility] eduardo 250 DO Work Phone: [phone] 162\S\162 Normal 150-450 [facility] Heart-u eduardo 250 DO Work Phone: [phone] 13.7\S\13.7 Normal 12.0-14.8 [facility] eduardo 250 DO Work Phone: [phone] 33.9\S\33.9 Normal 32.5-35.6 [facility] Heart-u eduardo 250 DO Work Phone: [phone] 31.5\S\31.5 Normal 27.5-35.2 [employer]-u eduardo 250 DO Work Phone: [phone] 92.8\S\92.8 Normal 83.5-101 [facility] Heart-u eduardo 250 DO Work Phone: [phone] 41.1\S\41.1 Normal 38.8-50.0 [facility] eduardo 250 DO Work Phone: [phone] 13.9\S\13.9 Normal 13.0-17.0 [employer] [facility] eduardo 250 DO Work Phone: [phone] 4.43\S\4.43 Normal 3.90-5.60 [facility] Heart-u eduardo 250 DO Work Phone: [phone] 8.8\S\8.8 Normal 4.1-10.5 [facility] Heart-u eduardo 250 DO Work Phone: [phone] > 60.0 Normal [facility] Heart-u eduardo 250 DO Work Phone: [phone] 10.8\S\10.8 Normal 6.0-15.0 [facility] Heart-u eduardo 250 DO Work Phone: [phone] 74.81\S\74.81 Normal [facility] eduardo 250 DO Work Phone: Comment on above: PERFORMED BY:[facility] SEGALAltagraciaCOREEN [place] [id number] MEDICAL DIRECTORDREW REAL M.D. 9.0\S\9.0 Normal 8.6-10.3 [facility] eduardo 250 DO Work Phone: 26.0\S\26.0 Normal 21.0-31.0 [facility] clark 250 DO Work Phone: 105\S\105 Normal 98-107 [facility] HeartCristy clark 250 DO Work Phone: 3.8\S\3.8 Normal 3.5-5.1 [facility] HeartCristy clark 250 DO Work Phone: 138\S\138 Normal 136-145 [facility] HeartCristy clark 250 DO Work Phone: [phone] 0.79\S\0.79 Normal 0.70-1.30 [facility] HeartCristy clark 250 DO Work Phone: 20\S\20 Normal 7-25 [facility] HeartCristy clark 250 DO Work Phone: 133\S\133 above high threshold 70-100 [facility] HeartCristy clark 250 DO Work Phone: Comment on above: Random Glucose Refer ence Range is dependent on time and content of last meal. Glucose of more than 200 mg/dL in a nonstressed, ambulatory subject supports the diagnosis of Diabetes Mellitus. ADA recommended reference range Nucleated erythrocytes [Pres ence] in Blood by Automated countOrdered By: Steven Zamora on 08-22-2022 Nucleated RBC Auto Ql (Bld) 0.1 /100{WBC} 0-0.5 [facility] Platelet mean volume Auto (B ld) [Entitic vol]Ordered By: Steven Zamora on 08-22-2022 Platelet mean volume (Bld) [Entitic vol] 9.6 fL 6.6-10.1 [facility] Platelets Auto (Bld) [#/Vol] Ordered By: Steven Zamora on 08-22-2022 Platelets (Bld) [#/Vol] 162 10*3/uL 150-450 [facility] Potassium [Moles/volume] in Serum or PlasmaOrdered By: Steven Zamora on 08-22-2022 Potassium [Moles/Vol] 3.8 mmol/L 3.5-5.1 [facility] RBC Auto (Bld) [#/Vol]Ordere d By: Steven Zamora on 08-22-2022 RBC (Bld) [#/Vol] 4.43 10*6/uL 3.90-5.60 [facility] Serum or plasma anion gap de terminationOrdered By: Steven Zamora on 08-22-2022 Anion gap [Moles/Vol] 10.8 mmol/L 6.0-15.0 [facility] Sodium [Moles/volume] in Ser um or PlasmaOrdered By: Steven Zamora on 08-22-2022 Sodium [Moles/Vol] 138 mmol/L 136-145 [facility] Urea nitrogen [Mass/volume] in Serum or PlasmaOrdered By: Steven Zamora on 08-22-2022 Urea nitrogen [Mass/Vol] 20 mg/dL 7-25 [facility] WBC Auto (Bld) [#/Vol]Ordere d By: Steven Zamora on 08-22-2022 WBC (Bld) [#/Vol] 8.8 10*3/uL 4.1-10.5 [facility] Basic Metabolic Panelon 07-0 Anion gap [Moles/Vol] 11.7 mmol/L Normal 6.0-15.0 [facility] Comment on above: Performed By: #### H S TROP #### [facility] [address] [place] [address] [place] Calcium [Mass/Vol] 9.4 mg/dL Normal 8.6-10.3 [facility] Comment on above: Performed By: #### H S TROP #### [facility] [address] [place] [address] [place] Chloride [Moles/Vol] 103 mmol/L Normal 98-107 [facility] Comment on above: Performed By: #### H S TROP #### [facility] [address] CO2 [Moles/Vol] 27.1 mmol/L Normal 21.0-31.0 [facility] Comment on above: Performed By: #### H S TROP #### [facility] [address] Creatinine [Mass/Vol] 0.71 mg/dL Normal 0.70-1.30 [facility] Comment on above: Performed By: #### H S TROP #### [facility] [address] [place] [address] [place] Creatinine Clr Calc Pharmacy 74.81 [facility] Comment on above: Performed By: #### H S TROP #### [place] [address] [place] GFR/1.73 sq M.predicted MDRD (S/P/Bld) [Vol rate/Area] mL/min/{1.73_m2} [facility] Comment on above: Performed By: #### H S TROP #### [place] [address] [place] Glucose [Mass/Vol] 162 mg/dL High 70-100 [facility] Comment on above: Result Comment: [place] Glucose Reference Range is dependent on time and content of last meal. Glucose of more than 200 mg/dL in a nonstressed, ambulatory subject supports the diagnosis of Diabetes Mellitus. ADA recommended reference range Performed By: #### H S TROP #### [facility] [address] [place] [address] [place] Potassium [Moles/Vol] 3.8 mmol/L Normal 3.5-5.1 [facility] Comment on above: Performed By: #### H S TROP #### [facility] [address] [place] [address] [place] Sodium [Moles/Vol] 138 mmol/L Normal 136-145 [facility] Comment on above: Performed By: #### H S TROP #### [facility] [address] [place] [address] [place] Urea nitrogen [Mass/Vol] 12 mg/dL Normal 7-25 [facility] Comment on above: Performed By: #### H S TROP #### [facility] [address] Cholesterol [Mass/volume] in Serum or PlasmaOrdered By: Steven Zamora on 08-21-2022 Cholesterol [Mass/Vol] 132 mg/dL 140-200 [facility] Comment on above: Chol less than 200 m g/dl low riskChol 201-239 mg/dl borderline riskChol 240 mg/dl and greater high risk Cholesterol in LDL Calc [Mas s/Vol]Ordered By: Steven Zamora on 08-21-2022 Cholesterol in LDL [Mass/Vol] 62 mg/dL 0-100 [facility] Comment on above: LDL ATP III CLASSIFI CATIONLDL less than 100 mg/dL OptimalLDL 100-129 mg/dL Near or above optimalLDL 130-159 mg/dL Borderline highLDL 160-189 mg/dL HighLDL greater than 189 mg/dL Very high Cholesterol in VLDL Calc [Ma ss/Vol]Ordered By: Steven Zamora on 08-21-2022 Cholesterol in VLDL [Mass/Vol] 24 mg/dL [facility] Complete Blood Count Auto Di ffon 08-21-2022 Basophils (Bld) [#/Vol] 0.0 10*3/uL Normal 0.0-0.2 [facility] Comment on above: Result Comment: PERF ORMED BY: [place] [address] PATHOLOGIST FIBERGLASS MACHINE OPERATOR DREW REAL M.D. Performed By: #### H S TROP #### [facility] [address] [place] [address] [place] Basophils/100 WBC (Bld) 0.2 % Normal . [facility] Comment on above: Performed By: #### H S TROP #### [facility] [address] [place] [address] [place] Eosinophils (Bld) [#/Vol] 0.0 10*3/uL Normal 0.0-0.45 [facility] Comment on above: Performed By: #### H S TROP #### [place] [address] [place] Eosinophils/100 WBC (Bld) 0.1 % Normal . [facility] Comment on above: Performed By: #### H S TROP #### [address] Erythrocyte distribution width (RBC) [Ratio] 13.5 % Normal 12.0-14.8 [facility] Comment on above: Performed By: #### H S TROP #### [address] Hematocrit (Bld) [Volume fraction] 42.7 % Normal 38.8-50.0 [facility] Comment on above: Performed By: #### H S TROP #### [address] Hemoglobin (Bld) [Mass/Vol] 14.6 g/dL Normal 13.0-17.0 [facility] Comment on above: Performed By: #### H S TROP #### [address] Lymphocytes (Bld) [#/Vol] 1.1 10*3/uL Normal 1.00-4.8 [facility] Comment on above: Performed By: #### H S TROP #### [address] Lymphocytes/100 WBC (Bld) 8.2 % Normal . [facility] Comment on above: Performed By: #### H S TROP #### [address] MCH (RBC) [Entitic mass] 31.4 pg Normal 27.5-35.2 [facility] Comment on above: Performed By: #### H S TROP #### [address] MCV (RBC) [Entitic vol] 91.6 fL Normal 83.5-101 [facility] Comment on above: Performed By: #### H S TROP #### [facility] [address] Mean Corpuscular HGB Conc 34.3 g/dL Normal 32.5-35.6 [facility] Comment on above: Performed By: #### H S TROP #### [address] Monocytes (Bld) [#/Vol] 0.8 10*3/uL Normal 0.0-0.8 [facility] Comment on above: Performed By: #### H S TROP #### [address] Monocytes/100 WBC (Bld) 6.1 % Normal . [facility] Comment on above: Performed By: #### H S TROP #### [address] Neutrophils (Bld) [#/Vol] 11.7 10*3/uL High 1.8-7.7 [facility] Comment on above: Performed By: #### H S TROP #### [address] Neutrophils/100 WBC (Bld) 85.4 % Normal . [facility] Comment on above: Performed By: #### H S TROP #### [address] NRBC% 0.0 /100{WBC} Normal 0-0.5 [facility] Comment on above: Performed By: #### H S TROP #### [address] Platelet mean volume (Bld) [Entitic vol] 9.5 fL Normal 6.6-10.1 [facility] Comment on above: Performed By: #### H S TROP #### [address] Platelets (Bld) [#/Vol] 171 10*3/uL Normal 150-450 [facility] Comment on above: Performed By: #### H S TROP #### [facility] [address] [place] [address] [place] RBC (Bld) [#/Vol] 4.66 10*6/uL Normal 3.90-5.60 [facility] Comment on above: Performed By: #### H S TROP #### [facility] [address] WBC (Bld) [#/Vol] 13.6 10*3/uL High 4.1-10.5 [facility] Comment on above: Performed By: #### H S TROP #### [facility] [address] ECG 12 lead ECGon 08-21-2022 ECG 12 lead ECG [facility] [place] [address] [place] [address] Electrocardiograph Report Signed Patient: Olaf Briones MR#: [id number] [birth year] : 1945 Acct:[id number] Age/Sex: 77 / M ADM Date: 08/20/22 Loc: Room: [address] [place] [address] Type: REG SDC Attending Dr: Steven Zamora DO Ordering Provider: Steven Zamora DO Date of Service: 08/21/2206/10/499 ECG/ECG 12 lead ECG: Inferolateral STEMI Copies to: Test Reason : Blood Pressure : / mmHG Vent. Rate : 071 BPM Atrial Rate : 071 BPM P-R Int : 186 ms QRS Dur : 106 ms QT Int : 398 ms P-R-T Axes : 087 186 195 degrees QTc Int : 432 ms Sinus rhythm with premature atrial complexes Right superior axis deviation T wave abnormality, consider inferior ischemia Abnormal ECG When compared with ECG of 20-AUG-2022 16:25, Significant changes have occurred Confirmed by JOSHUA ATWOOD DO ([id number]) on 08/21/2022 9:17:41 AM Referred By: Electronically Signed By:JOSHUA ATWOOD DO Transcribed By: MUS Signed By Joshua Atwood DO 08/21 0917 Normal [facility] Glucose Glucometer (BldC) [M ass/Vol]Ordered By: Steven Zamora on 08-21-2022 Glucose [Mass/Vol] 121 mg/dL [facility] Comment on above: Random Glucose Refer ence Range is dependent on time and content of last meal. Glucose of more than 200 mg/dL in a nonstressed, ambulatory subject supports the diagnosis of Diabetes Mellitus. Glucose Poct Glucometerson 0 08-21-2022 Commemt1 Glu2: Cleaned Meter [facility] Comment on above: Result Comment: PERF ORMED BY: [place] [address] PATHOLOGIST FIBERGLASS MACHINE OPERATOR DREW REAL M.D. Performed By: #### H S TROP #### [address] Glucose [Mass/Vol] 121 mg/dL Normal [facility] Comment on above: Result Comment: [place] om Glucose Reference Range is dependent on time and content of last meal. Glucose of more than 200 mg/dL in a nonstressed, ambulatory subject supports the diagnosis of Diabetes Mellitus. Performed By: #### H S TROP #### [address] Commemt1 Glu2: Cleaned Meter [facility] Comment on above: Result Comment: PERF ORMED BY: [place] [address] PATHOLOGIST FIBERGLASS MACHINE OPERATOR DREW REAL M.D. Performed By: #### H S TROP #### [address] Glucose [Mass/Vol] 137 mg/dL Normal [facility] Comment on above: Result Comment: [place] om Glucose Reference Range is dependent on time and content of last meal. Glucose of more than 200 mg/dL in a nonstressed, ambulatory subject supports the diagnosis of Diabetes Mellitus. Performed By: #### H S TROP #### [address] Laboratory - Chemistry and C hemistry - challengeon 08-21-2022 Cholesterol [Mass/Vol] 132\S\132 below low threshold 140-200 [facility]-Sandu eduardo 250 DO Work Phone: Comment on above: Chol less than 200 m g/dl low risk Chol 201-239 mg/dl borderline risk Chol 240 mg/dl and greater high risk Cholesterol in LDL [Mass/Vol] 62\S\62 Normal 0-100 -[facility]-Sandu eduardo 250 DO Work Phone: Comment on above: LDL ATP III CLASSIFI CATION LDL less than 100 mg/dL Optimal LDL 100-129 mg/dL Near or above optimal LDL 130-159 mg/dL Borderline high LDL 160-189 mg/dL High LDL greater than 189 mg/dL Very high Lipid Panelon 08-21-2022 Cholesterol [Mass/Vol] 132 mg/dL Low 140-200 [facility] Comment on above: Result Comment: Chol less than 200 mg/dl low risk Chol 201-239 mg/dl borderline risk Chol 240 mg/dl and greater high risk Performed By: #### H S TROP #### [facility] [address] [place] [address] [place] Cholesterol in HDL [Mass/Vol] 45 mg/dL Normal 23-92 [facility] Comment on above: Result Comment: HDL CHOL ATP-III CLASSIFICATION Cardiovascular Risk HDL > or equal to 60 mg/dL LOW HDL < 40 mg/dL HIGH Performed By: #### H S TROP #### [facility] [address] [place] [address] [place] Cholesterol.total/Reny sterol in HDL [Mass ratio] 2.9 {ratio} Normal <5.0 [facility] Comment on above: Result Comment: PERF ORMED BY: [place] [address] PATHOLOGIST FIBERGLASS MACHINE OPERATOR DREW REAL M.D. Performed By: #### H S TROP #### [facility] [address] [place] [id number] [place] LDL Cholesterol,Calculated 62 mg/dL Normal 0-100 [facility] Comment on above: Result Comment: LDL ATP III CLASSIFICATION LDL less than 100 mg/dL Optimal LDL 100-129 mg/dL Near or above optimal LDL 130-159 mg/dL Borderline high LDL 160-189 mg/dL High LDL greater than 189 mg/dL Very high Performed By: #### H S TROP #### [facility] [address] Triglyceride w/Reflex 124 mg/dL Normal 0-149 [facility] Comment on above: Result Comment: TRIG ATP III CLASSIFICATION TRIG less than 150 mg/dL Normal TRIG 150-199 mg/dL Borderline high TRIG 200-500 mg/dL High TRIG greater than 500 mg/dL Very high Standard traceable to the Center for Disease Conrtrol and Prevention (CDC) test method. Performed By: #### H S TROP #### [facility] [address] VLDL CHOLESTEROL 24 mg/dL Normal [facility] Comment on above: Performed By: #### H S TROP #### [facility] [address] No Panel InformationOrdered By: Steven Zamora on 08-21-2022 Bedside Glucose Comment Glu2: cleaned meter [facility] No Panel Informationon 08-21 Glu2: Cleaned Meter Normal [facility] [place] [facility]Sandu eduardo 250 DO Work Phone: Comment on above: PERFORMED BY:[facility] [place], [place] [phone] MEDICAL DIRECTORDREW REAL M.D. 121\S\121 Normal [facility]-Sandu eduardo 250 DO Work Phone: Comment on above: Random Glucose Refer ence Range is dependent on time and content of last meal. Glucose of more than 200 mg/dL in a nonstressed, ambulatory subject supports the diagnosis of Diabetes Mellitus. Glu2: Cleaned Meter Normal [facility] [place] [facility]Sandu eduardo 250 DO Work Phone: Comment on above: PERFORMED BY:[place] [address] [address] [place], [place] [id number] MEDICAL DIRECTORDREW REAL M.D. 137\S\137 Normal [facility]-Sandu eduardo 250 DO Work Phone: Comment on above: Random Glucose Refer ence Range is dependent on time and content of last meal. Glucose of more than 200 mg/dL in a nonstressed, ambulatory subject supports the diagnosis of Diabetes Mellitus. 0.0\S\0.0 Normal 0-0.5 -[facility]-[place] eduardo 250 DO Work Phone: Comment on above: PERFORMED BY:[facility] [place], [place] [phone] MEDICAL DIRECTORDREW REAL M.D. 0.8\S\0.8 Normal 0.0-0.8 -[facility]-Sandu eduardo 250 DO Work Phone: [phone] 1.1\S\1.1 Normal 1.00-4.8 -[facility]-Sandu eduardo 250 DO Work Phone: [phone] 11.7\S\11.7 Normal 6.0-15.0 -[facility]-Sandu eduardo 250 DO Work Phone: [phone] 0.2\S\0.2 Normal . [facility]-Sandu eduardo 250 DO Work Phone: [phone] 0.1\S\0.1 Normal . [facility]-Sandu eduardo 250 DO Work Phone: [phone] 6.1\S\6.1 Normal . [facility]-Sandu eduardo 250 DO Work Phone: [phone] 8.2\S\8.2 Normal . [facility]-Sandu eduardo 250 DO Work Phone: [phone] 85.4\S\85.4 Normal . [facility]-Sandu eduardo 250 DO Work Phone: [phone] 9.5\S\9.5 Normal 6.6-10.1 [facility]-Sandu eduardo 250 DO Work Phone: [phone] 171\S\171 Normal 150-450 [facility]-Sandu eduardo 250 DO Work Phone: [phone] 13.5\S\13.5 Normal 12.0-14.8 [facility]-Sandu eduardo 250 DO Work Phone: [phone] 34.3\S\34.3 Normal 32.5-35.6 [facility]-[place]and[place] eduardo 250 DO Work Phone: [phone] 31.4\S\31.4 Normal 27.5-35.2 [facility]-[place] eduardo 250 DO Work Phone: [phone] 91.6\S\91.6 Normal 83.5-101 [facility]-[place]and[place] eduardo 250 DO Work Phone: [phone] 42.7\S\42.7 Normal 38.8-50.0 [facility]-[place]and[place] eduardo 250 DO Work Phone: [phone] 14.6\S\14.6 Normal 13.0-17.0 [facility]-[place]and[place] eduardo 250 DO Work Phone: [phone] 4.66\S\4.66 Normal 3.90-5.60 [facility]-[place]and[place] eduardo 250 DO Work Phone: [phone] 13.6\S\13.6 above high threshold 4.1-10.5 [facility]-[place]and[place] eduardo 250 DO Work Phone: [phone] > 60.0 Normal [facility]-[place] eduardo 250 DO Work Phone: [phone] 74.81\S\74.81 Normal [facility]-[place]and[place] eduardo 250 DO Work Phone: [phone] 9.4\S\9.4 Normal 8.6-10.3 [facility]-[place]and[place] eduardo 250 DO Work Phone: [phone] 27.1\S\27.1 Normal 21.0-31.0 [facility]-[place] eduardo 250 DO Work Phone: [phone] 103\S\103 Normal 98-107 [facility]-[place] eduardo 250 DO Work Phone: [phone] 3.8\S\3.8 Normal 3.5-5.1 [facility]-[place] eduardo 250 DO Work Phone: [phone] 138\S\138 Normal 136-145 [facility] Carter clark 250 DO Work Phone: 0.71\S\0.71 Normal 0.70-1.30 [facility] Carter clark 250 DO Work Phone: 12\S\12 Normal 7-25 [facility] Carter clark 250 DO Work Phone: 162\S\162 above high threshold 70-100 [facility] Carter clark 250 DO Work Phone: Comment on above: Random Glucose Refer ence Range is dependent on time and content of last meal. Glucose of more than 200 mg/dL in a nonstressed, ambulatory subject supports the diagnosis of Diabetes Mellitus. ADA recommended reference range 2.9\S\2.9 Normal <5.0 [facility] Carter Adams DO Work Phone: Comment on above: PERFORMED BY:[place] [address] [place] [place], [place] [phone] MEDICAL DIRECTORDREW REAL M.D. 24\S\24 Normal [facility] Work Phone: 124\S\124 Normal 0-149 [facility] Work Phone: Comment on above: TRIG ATP III CLASSIF ICATION TRIG less than 150 mg/dL Normal TRIG 150-199 mg/dL Borderline high TRIG 200-500 mg/dL High TRIG greater than 500 mg/dL Very high Standard traceable to the Center for Disease Conrtrol and Prevention (CDC) test method. 45\S\45 Normal 23-92 [facility] Carter Adams DO Work Phone: Comment on above: HDL CHOL ATP-III CLA SSIFICATION Cardiovascular Risk HDL > or equal to 60 mg/dL LOW HDL < 40 mg/dL HIGH 12983.9\S\66798.9 Critically high 0.0-20.0 [facility] Carter clark 250 DO Work Phone: Comment on above: Critical Result : Ca lled to and read back by: MARC BUSTILLOS at: 08/21/2022 06:30:29 by:[id number] BY:[place] [address] [place] [place], [place] [id number] MEDICAL DIRECTORDREW REAL M.D. 81137.9\S\82161.9 Critically high 0.0-20.0 [facility] 250 DO Work Phone: Comment on above: Critical Result : Ca lled to and read back by: RIDGE WATERS at: 08/21/2022 04:23:36 by:[id number] BY:[place] [address] [place] [place], [place] [phone] MEDICAL DIRECTORDREW REAL M.D. 14204.3\S\77945.3 Critically high 0.0-20.0 [facility] 250 DO Work Phone: Comment on above: Critical Result : Ca lled to and read back by: SALLY BUSTILLOS at: 08/21/2022 00:52:26 by:[id number] BY:[place] [address] [place] [place], [place] [id number] MEDICAL DIRECTORDREW REAL M.D. Serum or plasma high density lipoprotein (HDL) cholesterol measurementOrdered By: Steven Zamora on 08-21-2022 Cholesterol in HDL [Mass/Vol] 45 mg/dL 23-92 [facility] Comment on above: HDL CHOL ATP-III CLA SSIFICATION Cardiovascular RiskHDL > or equal to 60 mg/dL LOWHDL < 40 mg/dL HIGH Serum or plasma total choles terol/high density lipoprotein (HDL) cholesterol mass ratOrdered By: Steven Zamora on 08-21-2022 Cholesterol.total/Reny sterol in HDL [Mass ratio] 2.9 {ratio} <5.0 [facility] Triglyceride [Mass/volume] i n Serum or PlasmaOrdered By: Steven Zamora on 08-21-2022 Triglyceride [Mass/Vol] 124 mg/dL 0-149 [facility] Comment on above: TRIG ATP III CLASSIF ICATIONTRIG less than 150 mg/dL NormalTRIG 150-199 mg/dL Borderline highTRIG 200-500 mg/dL High TRIG greater than 500 mg/dL Very highStandard traceable to the Center for Disease Conrtrol and Prevention (CDC) test method. Troponin I High Sensitivityo n 08-21-2022 Troponin I High Sensitivity 04471.9 pg/mL Off scale high 0.0-20.0 [facility] Comment on above: Result Comment: Crit ical Result : Called to and read back by: MARC BUSTILLOS at: 08/21/2022 06:30:29 by:[id number] PERFORMED BY: [place] [phone] PATHOLOGIST FIBERGLASS MACHINE OPERATOR DREW REAL M.D. Performed By: #### H S TROP #### [address] Troponin I High Sensitivity 96413.9 pg/mL Off scale high 0.0-20.0 [facility] Comment on above: Result Comment: Crit ical Result : Called to and read back by: RIDGE WATERS at: 08/21/2022 04:23:36 by:[id number] PERFORMED BY: [phone] PATHOLOGIST FIBERGLASS MACHINE OPERATOR DREW REAL M.D. Performed By: #### H S TROP #### [address] Troponin I High Sensitivity 69218.3 pg/mL Off scale high 0.0-20.0 [facility] Comment on above: Result Comment: Crit ical Result : Called to and read back by: SALLY BUSTILLOS at: 08/21/2022 00:52:26 by:[id number] PERFORMED BY: [place] [phone] PATHOLOGIST FIBERGLASS MACHINE OPERATOR DREW REAL M.D. Performed By: #### H S TROP #### [address] Troponin I.cardiac [Mass/vol ume] in Serum or Plasma by Detection limit <= 0.01 ng/Ordered By: Steven Zamora on 08-21-2022 Troponin I.cardiac DL <= 0.01 ng/mL [Mass/Vol] 86176.9 pg/mL 0.0-20.0 [facility] Comment on above: Critical Result : Ca lled to and read back by: MARC BUSTILLOS at: 08/21/2022 06:30:29 by:[id number] Activated partial thrombopla stin time (aPTT) in platelet poor plasma by coagulation aOrdered By: Cirilo Wise on 08-20-2022 aPTT Coag (PPP) [Time] 25.1 s 25.1-36.5 [facility] B-Type Natriuretic Peptideon 08-20-2022 Natriuretic peptide B (Bld) [Mass/Vol] 24.0 pg/mL Normal 5-100 [facility] Comment on above: Result Comment: PERF ORMED BY: [place] [address] PATHOLOGIST FIBERGLASS MACHINE OPERATOR DREW REAL M.D. Performed By: #### B BIOFUELS RESEARCH SCIENTIST, CK, CBC, HS TROP, BMP, PT, PTT #### [address] Basic Metabolic Panelon 07-0 Anion gap [Moles/Vol] 14.1 mmol/L Normal 6.0-15.0 [facility] Comment on above: Performed By: #### B BIOFUELS RESEARCH SCIENTIST, CK, CBC, HS TROP, BMP, PT, PTT #### [facility] [address] [place] [address] Calcium [Mass/Vol] 9.4 mg/dL Normal 8.6-10.3 [facility] Comment on above: Performed By: #### B BIOFUELS RESEARCH SCIENTIST, CK, CBC, HS TROP, BMP, PT, PTT #### [address] Chloride [Moles/Vol] 105 mmol/L Normal 98-107 [facility] Comment on above: Performed By: #### B BIOFUELS RESEARCH SCIENTIST, CK, CBC, HS TROP, BMP, PT, PTT #### [facility] [address] CO2 [Moles/Vol] 24.3 mmol/L Normal 21.0-31.0 [facility] Comment on above: Performed By: #### B BIOFUELS RESEARCH SCIENTIST, CK, CBC, HS TROP, BMP, PT, PTT #### [facility] [address] Creatinine [Mass/Vol] 0.92 mg/dL Normal 0.70-1.30 [facility] Comment on above: Performed By: #### B BIOFUELS RESEARCH SCIENTIST, CK, CBC, HS TROP, BMP, PT, PTT #### [facility] [address] Creatinine Clr Calc Pharmacy 65.05 [facility] Comment on above: Result Comment: PERF ORMED BY: [place] [address] PATHOLOGIST FIBERGLASS MACHINE OPERATOR DREW REAL M.D. Performed By: #### B BIOFUELS RESEARCH SCIENTIST, CK, CBC, HS TROP, BMP, PT, PTT #### [facility] [address] GFR/1.73 sq M.predicted MDRD (S/P/Bld) [Vol rate/Area] mL/min/{1.73_m2} [facility] Comment on above: Performed By: #### B BIOFUELS RESEARCH SCIENTIST, CK, CBC, HS TROP, BMP, PT, PTT #### [facility] [address] Glucose [Mass/Vol] 172 mg/dL High 70-100 [facility] Comment on above: Result Comment: [place] Glucose Reference Range is dependent on time and content of last meal. Glucose of more than 200 mg/dL in a nonstressed, ambulatory subject supports the diagnosis of Diabetes Mellitus. ADA recommended reference range Performed By: #### B BIOFUELS RESEARCH SCIENTIST, CK, CBC, HS TROP, BMP, PT, PTT #### [facility] [address] Potassium [Moles/Vol] 3.4 mmol/L Low 3.5-5.1 [facility] Comment on above: Performed By: #### B BIOFUELS RESEARCH SCIENTIST, CK, CBC, HS TROP, BMP, PT, PTT #### [facility] [address] Sodium [Moles/Vol] 140 mmol/L Normal 136-145 [facility] Comment on above: Performed By: #### B BIOFUELS RESEARCH SCIENTIST, CK, CBC, HS TROP, BMP, PT, PTT #### [facility] [address] Urea nitrogen [Mass/Vol] 15 mg/dL Normal 7-25 [facility] Comment on above: Performed By: #### B BIOFUELS RESEARCH SCIENTIST, CK, CBC, HS TROP, BMP, PT, PTT #### [facility] [address] Basophils Auto (Bld) [#/Vol] Ordered By: Cirilo Wise on 08-20-2022 Basophils (Bld) [#/Vol] 0.1 10*3/uL 0.0-0.2 [facility] Basophils/100 WBC Auto (Bld) Ordered By: Cirilo Wise on 08-20-2022 Basophils/100 WBC (Bld) 0.5 % . [facility] Calcium [Mass/volume] in Ser um or PlasmaOrdered By: Cirilo Wise on 08-20-2022 Calcium [Mass/Vol] 9.4 mg/dL 8.6-10.3 [facility] Carbon dioxide, total [Moles /volume] in Serum or PlasmaOrdered By: Cirilo Wise on 08-20-2022 CO2 [Moles/Vol] 24.3 mmol/L 21.0-31.0 [facility] Chloride [Moles/volume] in S jamin or PlasmaOrdered By: Cirilo Wise on 08-20-2022 Chloride [Moles/Vol] 105 mmol/L 98-107 [facility] Complete Blood Count Auto Di ffon 08-20-2022 Basophils (Bld) [#/Vol] 0.1 10*3/uL Normal 0.0-0.2 [facility] Comment on above: Result Comment: PERF ORMED BY: [place] [address] PATHOLOGIST FIBERGLASS MACHINE OPERATOR DREW REAL M.D. Performed By: #### B BIOFUELS RESEARCH SCIENTIST, CK, CBC, HS TROP, BMP, PT, PTT #### [address] Basophils/100 WBC (Bld) 0.5 % Normal . [facility] Comment on above: Performed By: #### B BIOFUELS RESEARCH SCIENTIST, CK, CBC, HS TROP, BMP, PT, PTT #### [address] Eosinophils (Bld) [#/Vol] 0.1 10*3/uL Normal 0.0-0.45 [facility] Comment on above: Performed By: #### B BIOFUELS RESEARCH SCIENTIST, CK, CBC, HS TROP, BMP, PT, PTT #### [address] Eosinophils/100 WBC (Bld) 1.3 % Normal . [facility] Comment on above: Performed By: #### B BIOFUELS RESEARCH SCIENTIST, CK, CBC, HS TROP, BMP, PT, PTT #### [address] Erythrocyte distribution width (RBC) [Ratio] 13.6 % Normal 12.0-14.8 [facility] Comment on above: Performed By: #### B BIOFUELS RESEARCH SCIENTIST, CK, CBC, HS TROP, BMP, PT, PTT #### [address] Hematocrit (Bld) [Volume fraction] 44.0 % Normal 38.8-50.0 [facility] Comment on above: Performed By: #### B BIOFUELS RESEARCH SCIENTIST, CK, CBC, HS TROP, BMP, PT, PTT #### [address] Hemoglobin (Bld) [Mass/Vol] 15.1 g/dL Normal 13.0-17.0 [facility] Comment on above: Performed By: #### B BIOFUELS RESEARCH SCIENTIST, CK, CBC, HS TROP, BMP, PT, PTT #### [address] [address] [place] Lymphocytes (Bld) [#/Vol] 2.8 10*3/uL Normal 1.00-4.8 [facility] Comment on above: Performed By: #### B BIOFUELS RESEARCH SCIENTIST, CK, CBC, HS TROP, BMP, PT, PTT #### [address] Lymphocytes/100 WBC (Bld) 26.2 % Normal . [facility] Comment on above: Performed By: #### B BIOFUELS RESEARCH SCIENTIST, CK, CBC, HS TROP, BMP, PT, PTT #### [address] MCH (RBC) [Entitic mass] 32.1 pg Normal 27.5-35.2 [facility] Comment on above: Performed By: #### B BIOFUELS RESEARCH SCIENTIST, CK, CBC, HS TROP, BMP, PT, PTT #### [address] MCV (RBC) [Entitic vol] 93.4 fL Normal 83.5-101 [facility] Comment on above: Performed By: #### B BIOFUELS RESEARCH SCIENTIST, CK, CBC, HS TROP, BMP, PT, PTT #### [address] Mean Corpuscular HGB Conc 34.4 g/dL Normal 32.5-35.6 [facility] Comment on above: Performed By: #### B BIOFUELS RESEARCH SCIENTIST, CK, CBC, HS TROP, BMP, PT, PTT #### [address] Monocytes (Bld) [#/Vol] 0.9 10*3/uL High 0.0-0.8 [facility] Comment on above: Performed By: #### B BIOFUELS RESEARCH SCIENTIST, CK, CBC, HS TROP, BMP, PT, PTT #### [address] Monocytes/100 WBC (Bld) 16.35 % Normal 0.00-20.00 [facility] Comment on above: Performed By: #### B BIOFUELS RESEARCH SCIENTIST, CK, CBC, HS TROP, BMP, PT, PTT #### [facility] [address] Monocytes/100 WBC (Bld) 7.9 % Normal . [facility] Comment on above: Performed By: #### B BIOFUELS RESEARCH SCIENTIST, CK, CBC, HS TROP, BMP, PT, PTT #### [address] Neutrophils (Bld) [#/Vol] 6.9 10*3/uL Normal 1.8-7.7 [facility] Comment on above: Performed By: #### B BIOFUELS RESEARCH SCIENTIST, CK, CBC, HS TROP, BMP, PT, PTT #### [address] Neutrophils/100 WBC (Bld) 64.1 % Normal . [facility] Comment on above: Performed By: #### B BIOFUELS RESEARCH SCIENTIST, CK, CBC, HS TROP, BMP, PT, PTT #### [address] NRBC% 0.1 /100{WBC} Normal 0-0.5 [facility] Comment on above: Performed By: #### B BIOFUELS RESEARCH SCIENTIST, CK, CBC, HS TROP, BMP, PT, PTT #### [address] Platelet mean volume (Bld) [Entitic vol] 9.7 fL Normal 6.6-10.1 [facility] Comment on above: Performed By: #### B BIOFUELS RESEARCH SCIENTIST, CK, CBC, HS TROP, BMP, PT, PTT #### [address] Platelets (Bld) [#/Vol] 215 10*3/uL Normal 150-450 [facility] Comment on above: Performed By: #### B BIOFUELS RESEARCH SCIENTIST, CK, CBC, HS TROP, BMP, PT, PTT #### [address] RBC (Bld) [#/Vol] 4.71 10*6/uL Normal 3.90-5.60 [facility] Comment on above: Performed By: #### B BIOFUELS RESEARCH SCIENTIST, CK, CBC, HS TROP, BMP, PT, PTT #### [facility] [address] WBC (Bld) [#/Vol] 10.7 10*3/uL High 4.1-10.5 [facility] Comment on above: Performed By: #### B BIOFUELS RESEARCH SCIENTIST, CK, CBC, HS TROP, BMP, PT, PTT #### [facility] [address] [place] [id number] [facility] Creatine Kinaseon 08-20-2022 CK [Catalytic activity/Vol] 115 U/L Normal [facility] Comment on above: Performed By: #### B BIOFUELS RESEARCH SCIENTIST, CK, CBC, HS TROP, BMP, PT, PTT #### [facility] [address] Creatine kinase [Enzymatic a ctivity/volume] in Serum or PlasmaOrdered By: Cirilo Wise on 08-20-2022 CK [Catalytic activity/Vol] 115 U/L [facility] Creatinine [Mass/volume] in Serum or PlasmaOrdered By: Cirilo Wise on 08-20-2022 Creatinine [Mass/Vol] 0.92 mg/dL 0.70-1.30 [facility] ECG 12 lead ECGon 08-20-2022 ECG 12 lead ECG [facility] [place] [address] [place] [address] Electrocardiograph Report Signed Patient: Olaf Briones MR#: [id number] [birth year] : 1945 Acct:[id number] Age/Sex: 77 / M ADM Date: 08/20/22 Loc: Room: [address] [place] [address] Type: REG SDC Attending Dr: Steven Zamora DO Ordering Provider: Cirilo Wise PA-C Date of Service: 08/20/2205/11/1623 ECG/ECG 12 lead ECG: Syncope Copies to: Test Reason : Blood Pressure : / mmHG Vent. Rate : 042 BPM Atrial Rate : 059 BPM P-R Int : 000 ms QRS Dur : 108 ms QT Int : 536 ms P-R-T Axes : 000 001 092 degrees QTc Int : 447 ms Junctional bradycardia Septal infarct , age undetermined Inferior injury pattern ACUTE VT / STEMI Consider right ventricular involvement in acute inferior infarct Abnormal ECG No previous ECGs available Confirmed by SHANNON COCHRAN DO ([id number]) on 08/21/2022 2:06:14 AM Referred By: Electronically Signed By:SHANNON COCHRAN DO Transcribed By: MUS Signed By Shannon Cochran DO 08/21 0206 Normal [facility] Eosinophils Auto (Bld) [#/Vo l]Ordered By: Cirilo Wise on 08-20-2022 Eosinophils (Bld) [#/Vol] 0.1 10*3/uL 0.0-0.45 [facility] Eosinophils/100 WBC Auto (Bl d)Ordered By: Cirilo Wise on 08-20-2022 Eosinophils/100 WBC (Bld) 1.3 % . [facility] Erythrocyte distribution wid th Auto (RBC) [Ratio]Ordered By: Cirilo Wise on 08-20-2022 Erythrocyte distribution width (RBC) [Ratio] 13.6 % 12.0-14.8 [facility] Glucose [Mass/volume] in Ser um or PlasmaOrdered By: Cirilo Wise on 08-20-2022 Glucose [Mass/Vol] 172 mg/dL 70-100 [facility] Comment on above: ADA recommended refe rence rangeRandom Glucose Reference Range is dependent on time and content of last meal. Glucose of more than 200 mg/dL in a nonstressed, ambulatory subject supports the diagnosis of Diabetes Mellitus. Hematocrit Auto (Bld) [Volum e fraction]Ordered By: Cirilo Wise on 08-20-2022 Hematocrit (Bld) [Volume fraction] 44.0 % 38.8-50.0 [facility] Hemoglobin [Mass/volume] in BloodOrdered By: Cirilo Wise on 08-20-2022 Hemoglobin (Bld) [Mass/Vol] 15.1 g/dL 13.0-17.0 [facility] Laboratory - CoagulationOrde red By: Cirilo Wise on 08-20-2022 PT Coag (PPP) [Time] 11.4 s 9.0-12.9 [facility] Leukocytes [#/volume] correc betty for nucleated erythrocytes in Blood by Automated counOrdered By: Cirilo Wise on 08-20-2022 WBC corrected for nucl RBC Auto (Bld) [#/Vol] 10.7 10*3/uL 4.1-10.5 [facility] Lymphocytes Auto (Bld) [#/Vo l]Ordered By: Cirilo Wise on 08-20-2022 Lymphocytes (Bld) [#/Vol] 2.8 10*3/uL 1.00-4.8 [facility] Lymphocytes/100 WBC Auto (Bl d)Ordered By: Cirilo Wise on 08-20-2022 Lymphocytes/100 WBC (Bld) 26.2 % . [facility] MCH Auto (RBC) [Entitic mass ]Ordered By: Cirilo Wise on 08-20-2022 MCH (RBC) [Entitic mass] 32.1 pg 27.5-35.2 [facility] MCHC Auto (RBC) [Mass/Vol]Or dered By: Cirilo Wise on 08-20-2022 MCHC (RBC) [Mass/Vol] 34.4 g/dL 32.5-35.6 [facility] MCV Auto (RBC) [Entitic vol] Ordered By: Cirilo Wise on 08-20-2022 MCV (RBC) [Entitic vol] 93.4 fL 83.5-101 [facility] Monocyte distribution width [Entitic volume] in Blood by AutomatedOrdered By: Cirilo Wise on 08-20-2022 Monocyte distribution width Auto (Bld) [Entitic vol] 16.35 % 0.00-20.00 [facility] Monocytes Auto (Bld) [#/Vol] Ordered By: Cirilo Wise on 08-20-2022 Monocytes (Bld) [#/Vol] 0.9 10*3/uL 0.0-0.8 [facility] Monocytes/100 WBC Auto (Bld) Ordered By: Cirilo Wise on 08-20-2022 Monocytes/100 WBC (Bld) 7.9 % . [facility] Natriuretic peptide B [Mass/ Vol]Ordered By: Cirilo Wise on 08-20-2022 Natriuretic peptide B (Bld) [Mass/Vol] 24.0 pg/mL 5-100 [facility] Neutrophils Auto (Bld) [#/Vo l]Ordered By: Cirilo Wise on 08-20-2022 Neutrophils (Bld) [#/Vol] 6.9 10*3/uL 1.8-7.7 [facility] Neutrophils/100 WBC Auto (Bl d)Ordered By: Cirilo Wise on 08-20-2022 Neutrophils/100 WBC (Bld) 64.1 % . [facility] No Panel Informationon 08-20 2529.3\S\2529.3 Critically high 0.0-20.0 MP-N orth [facility] eduardo [address] DO Work Phone: Comment on above: Critical Result : Ca lled to and read back by: ARY BUSTILLOS at: 08/20/2022 19:45:52 by:[id number] BY:[facility] [place], [place] [id number] MEDICAL DIRECTORDREW REAL M.D. No Panel InformationOrdered By: Cirilo Wise on 08-20-2022 Estimated GFR (CKD-EPI) > 60.0 mL/Min [facility] Creatinine Clearance (Chem 65.05 [facility] Nucleated erythrocytes [Pres ence] in Blood by Automated countOrdered By: Cirilo Wise on 08-20-2022 Nucleated RBC Auto Ql (Bld) 0.1 /100{WBC} 0-0.5 [facility] Partial Thromboplastin Timeo n 08-20-2022 aPTT Coag (Bld) [Time] 25.1 s Normal 25.1-36.5 [facility] Comment on above: Result Comment: PERF ORMED BY: [facility] [address] [place] [address] PATHOLOGIST FIBERGLASS MACHINE OPERATOR DREW REAL M.D. Performed By: #### B BIOFUELS RESEARCH SCIENTIST, CK, CBC, HS TROP, BMP, PT, PTT #### [facility] [address] [place] [address] [facility] Platelet mean volume Auto (B ld) [Entitic vol]Ordered By: Cirilo Wise on 08-20-2022 Platelet mean volume (Bld) [Entitic vol] 9.7 fL 6.6-10.1 [facility] Platelet poor plasma interna tional normalized ratio (INR) by coagulation assay (relatOrdered By: Cirilo Wise on 08-20-2022 INR Coag (PPP) [Relative time] 1.0 {INR} [facility] Comment on above: INR Therapeutic Rang e A) Pre- and Peroperative OAT started two weeks before surgery. NOT HIP SURGERY: 1.5 - 2.5 HIP SURGERY: 2 - 3B) Primary and secondary prevention of venous THROMBOSIS: 2 - 3C) Active venous thrombosis, pulmonary embolismand prevention of recurrent venous thrombosis: 2 - 3D) Prevention of arterial thromboembolismincluding patients with mechanical heart valves: 3 - 4.5 Platelets Auto (Bld) [#/Vol] Ordered By: Cirilo Wise on 08-20-2022 Platelets (Bld) [#/Vol] 215 10*3/uL 150-450 [facility] Potassium [Moles/volume] in Serum or PlasmaOrdered By: Cirilo Wise on 08-20-2022 Potassium [Moles/Vol] 3.4 mmol/L 3.5-5.1 [facility] Prothrombin Time INRon 08-20 INR Coag (PPP) [Relative time] 1.0 {INR} Normal [facility] Comment on above: Result Comment: INR Therapeutic Range A) Pre- and Peroperative OAT started two weeks before surgery. NOT HIP SURGERY: 1.5 - 2.5 HIP SURGERY: 2 - 3 B) Primary and secondary prevention of venous THROMBOSIS: 2 - 3 C) Active venous thrombosis, pulmonary embolism and prevention of recurrent venous thrombosis: 2 - 3 D) Prevention of arterial thromboembolism including patients with mechanical heart valves: 3 - 4.5 Performed By: #### B BIOFUELS RESEARCH SCIENTIST, CK, CBC, HS TROP, BMP, PT, PTT #### [facility] [address] [place] [address] [place] PT Coag (PPP) [Time] 11.4 s Normal 9.0-12.9 [facility] Comment on above: Performed By: #### B BIOFUELS RESEARCH SCIENTIST, CK, CBC, HS TROP, BMP, PT, PTT #### [facility] [address] [place] [address] [place] RBC Auto (Bld) [#/Vol]Ordere d By: Cirilo Wise on 08-20-2022 RBC (Bld) [#/Vol] 4.71 10*6/uL 3.90-5.60 [facility] Serum or plasma anion gap de terminationOrdered By: Cirilo Wise on 08-20-2022 Anion gap [Moles/Vol] 14.1 mmol/L 6.0-15.0 [facility] Sodium [Moles/volume] in Ser um or PlasmaOrdered By: Cirilo Wise on 08-20-2022 Sodium [Moles/Vol] 140 mmol/L 136-145 [facility] Troponin I High Sensitivityo n 08-20-2022 Troponin I High Sensitivity 9010.4 pg/mL Off scale high 0.0-20.0 [facility] Comment on above: Result Comment: Crit ical Result : Called to and read back by: ARY BUSTILLOS at: 08/20/2022 22:35:19 by:[id number] PERFORMED BY: [place] [id number] PATHOLOGIST FIBERGLASS MACHINE OPERATOR DREW REAL M.D. Performed By: #### H S TROP #### [address] Troponin I High Sensitivity 2529.3 pg/mL Off scale high 0.0-20.0 [facility] Comment on above: Result Comment: Crit ical Result : Called to and read back by: ARY BUSTILLOS at: 08/20/2022 19:45:52 by:[id number] PERFORMED BY: [id number] PATHOLOGIST FIBERGLASS MACHINE OPERATOR DREW REAL M.D. Performed By: #### H S TROP #### [facility] [address] [place] [address] Troponin I High Sensitivity 366.3 pg/mL Off scale high 0.0-20.0 [facility] Comment on above: Result Comment: Crit ical Result : Called to and read back by: SHANNON FERREIRA at: 08/20/2022 17:43:14 by:[id number] PERFORMED BY: [place] [address] PATHOLOGIST FIBERGLASS MACHINE OPERATOR DREW REAL M.D. Performed By: #### H S TROP #### [address] Troponin I.cardiac [Mass/vol ume] in Serum or Plasma by Detection limit <= 0.01 ng/Ordered By: Cirilo Wise on 08-20-2022 Troponin I.cardiac DL <= 0.01 ng/mL [Mass/Vol] 366.3 pg/mL 0.0-20.0 [facility] Comment on above: Critical Result : Ca lled to and read back by: SHANNON FERREIRA at: 08/20/2022 17:43:14 by:[id number] Urea nitrogen [Mass/volume] in Serum or PlasmaOrdered By: Cirilo Wise on 08-20-2022 Urea nitrogen [Mass/Vol] 15 mg/dL 7-25 [facility] WBC Auto (Bld) [#/Vol]Ordere d By: Cirilo Wise on 08-20-2022 WBC (Bld) [#/Vol] 10.7 10*3/uL 4.1-10.5 [facility] XR chest 1Von 08-20-2022 XR chest 1V [facility] [place] [address] [place] [address] XRay Report Signed Patient: Olaf Briones MR#: [id number] 2 : 1945 Acct:[id number] Age/Sex: 77 / M ADM Date: 08/20/22 Loc: CL Room: Type: [facility] Attending Dr: Steven Zamora DO Copies to: NEREYDA Parker DO Ordering Provider: Cirilo Wise PA-C Date of Service: 08/20/22 XR/XR chest 1V: Syncope PORTABLE AP ERECT CHEST 1630 hours CLINICAL HISTORY: Syncopal episode today COMPARISON: None Large defibrillator pads overlie the left heart. The heart is within normal limits. There is no vascular congestion. The lungs, as visualized, are clear. There is no effusion or pneumothorax. There are degenerative changes at the spine and shoulders . 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) Former smoker (V15.82) (Z87.891) former cigar smoker Overweight with body mass index (BMI) of 28 to 28.9 in adult (278.02,V85.24) (E66.3,Z68.28) Orders Abnormal EKG Renew: Aspirin EC 81 MG Oral Tablet Delayed Release; TAKE 1 TABLET DAILY Hyperlipemia Renew: Rosuvastatin Calcium 10 MG Oral Tablet; TAKE 1 TABLET DAILY Hypertension Renew: Metoprolol Succinate ER 25 MG Oral Tablet Extended Release 24 Hour; TAKE 1 TABLET DAILY Overweight with body mass index (BMI) of 28 to 28.9 in adult Healthy Weight Tips; Status:Complete - Retrospective Authorization; Done: [id number] Some eating tips that can help you lose weight.; Status:Complete - Retrospective Authorization; Done: [id number] SocHx: Former smoker Tobacco Use Screening; Status:Complete; Done: [id number] Patient Instructions Please bring all medicines, vitamins, and herbal supplements with you when you come to the office. Prescriptions will not be filled unless you are compliant with your follow up appointments or have a follow up appointment scheduled as per instruction of your physician. Refills should be requested at the time of your visit. Follow up in 1 year. Lab as scheduled with [place] Chief Complaint OLAF BRIONES is being seen for a 9 month follow-up of. History of Present Illness Patient is here for follow-up continue management for previous evaluation of dizziness, borderline abnormal stress test, hypertension and hyperlipidemia. Since last time I saw him he reports he is feeling well. He described functional class I. He denies any complaint of chest pain, palpitation, lightheadedness, dizziness or syncope he remains fairly active. Assessment 1. prior prior complaints of intermittent dizziness I suspect due to transient hypotension. Patient denies any recurrence 2. Borderline abnormal stress test. I suspect his perfusion imaging finding are related to attenuation. The patient describe functional class I. He denies any chest pain and he is completely asymptomatic. He was started recently on low-dose beta-reynaldo 3. Hypertension controlled on home recording with component of whitecoat effect 4. Hyperlipidemia 5. Borderline abnormal EKG 6. Borderline overweight Plan 1. Considering patient is completely asymptomatic I recommended for the time being continuation with observant approach. And advised him to continue low-dose aspirin and a beta-reynaldo 2. We discussed conservative versus invasive evaluation and I suggested for the time being based on the size of the defect and lack of symptoms that medical therapy appears to be more appropriate 3. I have suggested the patient to continue to check his blood pressure 2-3 times weekly to rule out transient hypotension 4. Try to retrieve his lab work from the [place] 5. We will see him back in the office in 1 year 6. I counseled the patient regarding coronary artery disease symptoms and signs and I advised him to notify me with change in cardiac status Surgical History Problems Denied: History of Complete colonoscopy History of Prostate surgery Current Meds Medication NameInstruction Allopurinol 300 MG Oral TabletTAKE 1 TABLET DAILY. amLODIPine Besylate 5 MG Oral TabletTAKE 1 TABLET DAILY. Aspirin EC 81 MG Oral Tablet Delayed ReleaseTAKE 1 TABLET DAILY. Diclofenac Sodium 75 MG Oral Tablet Delayed ReleaseTAKE 2 TABLET Daily Metoprolol Succinate ER 25 MG Oral Tablet Extended Release 24 HourTAKE 1 TABLET DAILY. Multi Vitamin Oral TabletTAKE 1 TABLET DAILY. Rosuvastatin Calcium 10 MG Oral TabletTAKE 1 TABLET DAILY. Vitamin D 125 MCG (5000 UT) CAPSTAKE 1 CAPSULE Daily Zinc 15 MG TABSTake 1 tablet daily Allergies Medication albuterol Allergy; Headache; Recorded By: Zahida Grace; 11/24/2020 8:51:49 AM hydroCHLOROthiazide TABS Allergy; Rash; Recorded By: Zahida Grace; 11/24/2020 8:51:49 AM Social History Problems Caffeine use (V49.89) (Z78.9) 1 cup of coffee daily Former smoker (V15.82) (Z87.891) former cigar smoker No alcohol use No illicit drug use Review of Systems Constitutional: not feeling tired. Cardiovascular: no intermittent leg claudication and as noted in HPI. Respiratory: no cough and no shortness of breath. Gastrointestinal: no change in bowel habits and no blood in stools. Integumentary: no skin rashes. Neurological: no seizures and no frequent falls. All other systems have been reviewed and are negative for complaint. Vitals Vital Signs Recorded: [id number] 10:52AMRecorded: 59Ngg0501 10:34AM [id number], LUE, Sitting [id number], LUE, Sitting Heart Rate72, L Radial Height5 ft 6 in Lyfknu367 lb BMI Tployluaos93.73 kg/m2 BSA Calculated1.9 Tobacco Useb) No PHQ-2 #1. Over the last 2 weeks have you felt down, depressed (more content not included)... Normal [facility] XR KUB 1 VIEWon 10-26-2021 XR KUB 1 VIEW EXAMINATION: XR KUB 1 VIEW HISTORY: Kidney stone COMPARISON: 10/19/2020 FINDINGS: KIDNEY/URETER - RIGHT: Multiple nephroliths KIDNEY/URETER - LEFT: Multiple nephroliths PELVIS: No visible ureteral calcifications. Any visible calcifications favor phleboliths. BOWEL: No abnormal dilation or deviation. BONES: No acute abnormality. Moderate degenerative changes of the spine and hips OTHER: Vascular calcifications. No abnormal gaseous collections. 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 Prescriptions will not be filled unless you are compliant with your follow up appointments or have a follow up appointment scheduled as per instruction of your physician. Refills should be requested at the time of your visit. I, Bella Osorio LPN, am scribing for and in the presence of, Dr. Ashutosh Ling MD Follow up in 9 months Chief Complaint OLAF BRIONES is being seen for a 6 month follow-up of. History of Present Illness Patient is here for follow-up and management for previous evaluation for symptoms of dizziness attributed to transient hypotension, hypertension, hyperlipidemia and borderline abnormal EKG. Since last time I saw him he reports has been feeling well. He denies complaint of chest pain, palpitation, lightheadedness, dizziness or syncope. He clearly appears to have whitecoat hypertension affect. His blood pressure tends to run a little higher in the office. He report blood pressures under excellent control at home. He denies any cardiac symptoms and describe functional class I. Assessment 1. Few prior episodes of intermittent dizziness I suspect due to transient hypotension. Patient denies any recurrence 2. Borderline abnormal stress test. I suspect his nuclear images are related to attenuation. The patient describe functional class I. He denies any chest pain and he is completely asymptomatic. He was started recently on low-dose beta-reynaldo 3. Hypertension controlled on home recording with component of whitecoat effect 4. Hyperlipidemia 5. Borderline abnormal EKG 6. Borderline overweight Plan 1. Considering patient is completely asymptomatic I recommended for the time being continuation with observant approach. And advised him to continue low-dose aspirin and a beta-reynaldo 2. We discussed conservative versus invasive evaluation and I suggested for the time being based on the size of the defect and lack of symptoms that medical therapy appears to be more appropriate 3. I have suggested the patient to continue to check his blood pressure 2-3 times weekly to rule out transient hypotension 4. I reviewed the results of his prior diagnostic testing and recent event monitor 5. We will see him back in the office in 9 months or earlier if the need arise 6. I counseled the patient regarding coronary artery disease symptoms and signs and I advised him to notify me with change in cardiac status Surgical History Problems Denied: History of Complete colonoscopy History of Prostate surgery Current Meds Medication NameInstruction Allopurinol 300 MG Oral TabletTAKE 1 TABLET DAILY. amLODIPine Besylate 5 MG Oral TabletTAKE 1 TABLET DAILY. Diclofenac Sodium 75 MG Oral Tablet Delayed ReleaseTAKE 2 TABLET Daily Metoprolol Succinate ER 25 MG Oral Tablet Extended Release 24 HourTAKE 1 TABLET DAILY. Multi Vitamin Oral TabletTAKE 1 TABLET DAILY. Rosuvastatin Calcium 10 MG Oral TabletTAKE 1 TABLET DAILY. Vitamin D 125 MCG (5000 UT) CAPSTAKE 1 CAPSULE Daily Zinc 15 MG TABSTake 1 tablet daily Patient did not bring medication list or bottles. Updated verbally with patient Allergies Medication albuterol Allergy; Headache; Recorded By: Zahida Grace; 11/24/2020 8:51:49 AM hydroCHLOROthiazide TABS Allergy; Rash; Recorded By: Zahida Grace; 11/24/2020 8:51:49 AM Social History Problems Caffeine use (V49.89) (Z78.9) 1 cup of coffee daily Former smoker (V15.82) (Z87.891) former cigar smoker No alcohol use No illicit drug use Review of Systems Constitutional: not feeling tired. Cardiovascular: no intermittent leg claudication and as noted in HPI. Respiratory: no cough and no shortness of breath. Gastrointestinal: no change in bowel habits and no blood in stools. Integumentary: no skin rashes. Neurological: no seizures and no frequent falls. All other systems have been reviewed and are negative for complaint. Vitals Vital Signs Recorded: 18Sep2021 10:16AM Heart Rate64, L Radial [id number], (more content not included)... Normal [employer] Tobacco Screening.on 022 Fall risk assessment a) No falls within the last year [facility]u eduardo 250 DO Work Phone: Tobacco use status [facility] b) No M [facility] Carter clark 250 DO Work Phone: IO EKG Electrocardiogram- 12 [place] 11-24-2020 IO EKG Electrocardiogram- 12 Lead See Scanned Document [facility] Carter Adams DO Work Phone: Tobacco Screening.on 021 Fall risk assessment a) No falls within the last year [facility] Carter Adams DO Work Phone: Tobacco use status [facility] b) No M -[facility] Carter clark 250 DO Work Phone: Vital Signs Date Time Vital Sign Value Performing Clinician Facility 01-09-2023 15:38-0500 Body height 172.7 cm Ashutosh Ling MD Work Phone: [facility] 01-09-2023 15:38-0500 Body mass index (BMI) [Ratio] 26.76 kg/m2 Ashutosh Ling MD Work Phone: [facility] 01-09-2023 15:38-0500 Body weight 79.83 kg Ashutosh Ling MD Work Phone: [facility] 01-09-2023 15:38-0500 Diastolic blood pressure 76 mm[Hg] Ashutosh Ling MD Work Phone: [facility] 01-09-2023 15:38-0500 Heart rate 58 /min Ashutosh Ling MD Work Phone: [facility] 01-09-2023 15:38-0500 Systolic blood pressure 142 mm[Hg] Ashutosh Ling MD Work Phone: [facility] 10-29-2022 11:35-0400 Body height 172.72 cm Estella Siddiqui Other [employer] Other 10-29-2022 11:35-0400 Body mass index (BMI) [Ratio] 26.64 kg/m2 Estella Siddiqui Other [employer] Other 10-29-2022 11:35-0400 Body temperature 98.2 [degF] Estella Siddiqui Other [employer] Other 10-29-2022 11:35-0400 Body weight 79.47 kg Estella Siddiqui Other [employer] Other 10-29-2022 11:35-0400 Diastolic blood pressure 76 mm[Hg] Estella Siddiqui Other [employer] Other 10-29-2022 11:35-0400 Respiratory rate 18 /min Estella Siddiqui Other [employer] Other 10-29-2022 11:35-0400 SaO2% (BldA) [Mass fraction] 98 % Estella Siddiqui Other [employer] Other 10-29-2022 11:35-0400 Systolic blood pressure 140 mm[Hg] Estella Siddiqui Other [employer] Other 09-05-2022 13:02-0400 Body height 167.64 cm Nahomi Hernandez Work Phone: [employer] DO Work Phone: 09-05-2022 13:02-0400 Body mass index (BMI) [Ratio] 27.6 kg/m2 Nahomi Hernandez Work Phone: [employer] 250 DO Work Phone: 09-05-2022 13:02-0400 Body surface area Derived from formula 1.87 m2 Nahomi Hernandez Work Phone: [facility] 250 DO Work Phone: 09-05-2022 13:02-0400 Body weight 77.57 kg Nahomi Hernandez Work Phone: [facility] 250 DO Work Phone: 09-05-2022 13:02-0400 Diastolic blood pressure 54 mm[Hg] Nahomi Bowers David Work Phone: [facility] 250 DO Work Phone: 09-05-2022 13:02-0400 Heart rate 68 /min Nahomi Bowers David Work Phone: [facility] 250 DO Work Phone: 09-05-2022 13:02-0400 Systolic blood pressure 126 mm[Hg] Nahomi Hernandez Work Phone: [facility] 250 DO Work Phone: 08-27-2022 03:30-0400 Diastolic blood pressure 76 mm[Hg] [facility] 08-27-2022 03:30-0400 Heart rate 74 /min [facility] 08-27-2022 03:30-0400 Mean blood pressure 87 mm[Hg] [facility] 08-27-2022 03:30-0400 Respiratory rate 14 /min [facility] 08-27-2022 03:30-0400 SaO2% (BldA) [Mass fraction] 96 % [facility] 08-27-2022 03:30-0400 Systolic blood pressure 110 mm[Hg] [facility] 08-27-2022 03:00-0400 Diastolic blood pressure 80 mm[Hg] [facility] 08-27-2022 03:00-0400 Heart rate 80 /min [facility] 08-27-2022 03:00-0400 Mean blood pressure 97 mm[Hg] [facility] 08-27-2022 03:00-0400 Respiratory rate 15 /min [facility] 08-27-2022 02:30-0400 Diastolic blood pressure 73 mm[Hg] [facility] 08-27-2022 02:30-0400 Heart rate 96 /min [facility] 08-27-2022 02:30-0400 Mean blood pressure 92 mm[Hg] [facility] 08-27-2022 02:30-0400 Respiratory rate 20 /min [facility] 08-27-2022 02:30-0400 SaO2% (BldA) [Mass fraction] 98 % [facility] 08-27-2022 02:30-0400 Systolic blood pressure 130 mm[Hg] [facility] 08-26-2022 19:17-0400 Respiratory rate 18 /min [facility] 08-26-2022 18:11-0400 Respiratory rate 18 /min [facility] 08-26-2022 17:07-0400 Body temperature 97.7 [degF] [facility] 08-26-2022 17:07-0400 Heart rate 83 /min [facility] 08-26-2022 17:07-0400 Respiratory rate 18 /min [facility] 08-22-2022 15:50-0400 Body temperature 98.2 [degF] [facility] 08-22-2022 15:50-0400 Diastolic blood pressure 64 mm[Hg] [facility] 08-22-2022 15:50-0400 Heart rate 64 /min [facility] 08-22-2022 15:50-0400 Respiratory rate 18 /min [facility] 08-22-2022 15:50-0400 SaO2% (BldA) [Mass fraction] 99 % [facility] 08-22-2022 15:50-0400 Systolic blood pressure 124 mm[Hg] [facility] 08-22-2022 05:48-0400 Body weight 81 kg [facility] 08-21-2022 10:27-0400 70 1 Jame Barraza Work Phone: [facility] 250 DO Work Phone: Comment on above: [id number] 08-20-2022 18:32-0400 Body height 172.72 cm [facility] 08-20-2022 17:13-0400 Heart rate 42 /min [facility] 08-20-2022 16:38-0400 Diastolic blood pressure 60 mm[Hg] [facility] 08-20-2022 16:38-0400 Respiratory rate 18 /min [facility] 08-20-2022 16:38-0400 SaO2% (BldA) [Mass fraction] 98 % [facility] 08-20-2022 16:38-0400 Systolic blood pressure 123 mm[Hg] [facility] 08-20-2022 16:25-0400 Body height 172.72 cm [facility] 08-20-2022 16:25-0400 Body temperature 97.6 [degF] [facility] 08-20-2022 16:25-0400 Body weight 81.5 kg [facility] 10-27-2021 08:55-0400 Blood Pressure Location Shanna IVORY [facility] 10-27-2021 08:55-0400 Diastolic blood pressure 76 mm[Hg] Shanna IVORY [facility] 10-27-2021 08:55-0400 Heart rate 64 /min Shanna IVORY [facility] 10-27-2021 08:55-0400 Respiratory rate 16 /min Shanna IVORY [facility] 10-27-2021 08:55-0400 Systolic blood pressure 125 mm[Hg] Shanna IVORY [facility] 03-07-2021 15:22-0500 Diastolic blood pressure 78 mm[Hg] Jame Barraza Work Phone: [facility] 250 DO Work Phone: 03-07-2021 15:22-0500 Systolic blood pressure 139 mm[Hg] Jame Barraza Work Phone: [facility] 250 DO Work Phone: 03-07-2021 14:47-0500 Body height 167.64 cm Jame Barraza Work Phone: [facility] 250 DO Work Phone: 03-07-2021 14:47-0500 Body mass index (BMI) [Ratio] 28.73 kg/m2 Jame Barraza Work Phone: [facility] 250 DO Work Phone: 03-07-2021 14:47-0500 Body surface area Derived from formula 1.9 m2 Jame Barraza Work Phone: [facility] 250 DO Work Phone: 03-07-2021 14:47-0500 Body weight 80.74 kg Jame Barraza Work Phone: [facility] 250 DO Work Phone: 03-07-2021 14:47-0500 Diastolic blood pressure 82 mm[Hg] Jame Barraza Work Phone: [facility] 250 DO Work Phone: 03-07-2021 14:47-0500 Heart rate 84 /min Jame Barraza Work Phone: [facility] 250 DO Work Phone: 03-07-2021 14:47-0500 Systolic blood pressure 172 mm[Hg] Jame Barraza Work Phone: [facility] 250 DO Work Phone: 11-24-2020 08:51-0400 Body height 167.64 cm Jame Barraza Work Phone: [facility] 250 DO Work Phone: 11-24-2020 08:51-0400 Body mass index (BMI) [Ratio] 28.08 kg/m2 Jame Barraza Work Phone: [facility] 250 DO Work Phone: 11-24-2020 08:51-0400 Body surface area Derived from formula 1.89 m2 Jame Barraza Work Phone: [facility] 250 DO Work Phone: 11-24-2020 08:51-0400 Body weight 78.93 kg Jame Barraza Work Phone: [facility] 250 DO Work Phone: 11-24-2020 08:51-0400 Diastolic blood pressure 82 mm[Hg] Jame Barraza Work Phone: [facility] 250 DO Work Phone: 11-24-2020 08:51-0400 Diastolic blood pressure 80 mm[Hg] Jame Barraza Work Phone: [facility] 250 DO Work Phone: 11-24-2020 08:51-0400 Heart rate 66 /min Jame Barraza Work Phone: [facility] 250 DO Work Phone: 11-24-2020 08:51-0400 Systolic blood pressure 136 mm[Hg] Jame Barraza Work Phone: [facility] 250 DO Work Phone: 11-24-2020 08:51-0400 Systolic blood pressure 138 mm[Hg] Jame Barraza Work Phone: [facility] 250 DO Work Phone: Encounters Encounter Date Encounter Type Care Provider Facility Start: 11-29-2023 ambulatory Shanna IVORY [facility] ty:[facility] Start: 02-04-2023 End: 02-05-2023 ambulatory Alonzo Briscoe MD Facility:[facility] Start: 01-09-2023 End: 01-09-2023 ambulatory [facility] Start: 01-09-2023 End: 01-09-2023 Office outpatient visit 25 minutes Ashutosh Ling MD Work Phone: [facility] Comment on above: Arteriosclerotic car diovascular disease (Primary Dx); Abnormal EKG; Mixed hyperlipidemia; Primary hypertension; Post PTCA; Essential hypertension; BMI 26.0-26.9,adult; Easy bruisability Start: 11-26-2022 End: 11-27-2022 ambulatory Shanna IVORY Facility:[facility] Start: 10-29-2022 End: 10-29-2022 ambulatory Estella Siddiqui Other [employer] Other Start: 10-29-2022 Office outpatient ne w 10 minutes Estella Siddiqui [facility] Start: 10-01-2022 Rx Renewal Nahomi Hernandez Work Phone: [facility] 250 DO Work Phone: Start: 09-14-2022 Rx Renewal Nahomi Hernandez Work Phone: [facility] 250 DO Work Phone: Start: 09-06-2022 Telephone encounter [facility] Comment on above: Patient Update Start: 09-05-2022 Office outpatient vi sit 25 minutes Nahominaz Hernandez Work Phone: [facility] 250 DO Work Phone: Start: 09-05-2022 Patient encounter procedure Nahomi Hernandez Work Phone: [facility] 250 DO Work Phone: Start: 09-05-[address] Ashutosh Ling Facility: Start: 09-05-2022 End: 09-06-2022 ambulatory Alexandre KOROMA Facility:[facility] Start: 09-05-2022 End: 09-05-2022 Patient encounter procedure Alexandre KOROMA [facility] Start: 09-04-2022 Telephone encounter Deborah Ibarra RN NOC Comment on above: Follow Up Phone Call (All Clear) Start: 08-27-2022 End: 08-31-2022 Evaluation and management of inpatient DAVID ANDREWS Facility:[facility] Start: 08-26-2022 End: 08-27-2022 Emergency department patient visit [facility] Start: 08-26-2022 End: 08-27-2022 Emergency department patient visit [facility] Start: 08-26-2022 End: 08-28-2022 ambulatory Alexandre KOROMA Facility:[id number] Start: 08-24-2022 Chart Update Jame Barraza Work Phone: [facility] 250 DO Work Phone: Start: 08-22-[address] Jame Barraza Facility:[id number] Start: 08-21-[address] Jame Barraza Facility:[id number] Start: 08-20-2022 End: 08-22-2022 Evaluation and management of inpatient Steven Zamora Facility:[facility] Start: 08-20-2022 End: 08-22-2022 Evaluation and management of inpatient [facility] Work Phone: Start: 08-20-2022 Admission to [facility]er Work Phone: Start: 08-20-2022 ambulatory NON STAFF [facility] Work Phone: Start: 08-20-[address] Ben Zamoar Facility:[id number] Start: 08-20-[address] Jame Barraza Facility:[id number] Start: 06-01-[address] Nahomi Hernandez Facility: Start: 05-08-2022 ambulatory Shanna IVORY Facility :[facility] Start: 10-27-2021 End: 10-27-2021 Patient encounter procedure Shanna IVORY [facility] Start: 10-26-2021 End: 10-27-[address] SHANNA IVORY Facility:[facility]1 Start: 05-04-2021 ambulatory DOMINGUEZ GUTIERREZ Faci lity:H1 Start: 03-07-2021 Office outpatient vi sit 25 minutes Jame Barraza Work Phone: [facility] 250 DO Work Phone: Start: 11-29-2020 Chart Update Jame Barraza Work Phone: [facility] 250 DO Work Phone: Start: 11-28-2020 Patient encounter procedure Jame Barraza Work Phone: [facility] [address] [place] Work Phone: Start: 11-24-2020 AUDIT Jame Barraza Work Phone: [facility] 250 DO Work Phone: Procedures Date Procedure Procedure Detail Performing Clinician Start: 08-30-2022 Antibody screen DAVID PEREZ Comment on above: Order Comment: Speci men Type: BLOOD SPECIMENOrdering Facility: [facility] Address: [address] [address] Performed By: #### T SCR ####CC MAIN BLOOD BANKCLIA [id number] [address] Start: 08-27-2022 Antibody screen DAVID RANULFO PEREZ Comment on above: Order Comment: Speci men Type: BLOOD SPECIMENOrdering Facility: [facility] Address: [address] [place] [address] Performed By: #### T SCR ####CC MAIN BLOOD BANKIA [id number] [address] Start: 08-20-[address] acement 0 Start: 08-20-2022 CL LHC & COR Angio Start: 08-20-2022 CL PCI AMI 1st Vesse l RCA JUHI Start: 08-18-2013 Cystoscopy Shanna SALDIVAR Comment on above: 11/08/200904/2006 Start: 02-18-2006 Transurethral prostatectomy Shanna IVORY Start: 02-18-2006 Urodynamic studies Kathryn IVORY Start: 02-18-2005 Transrectal biopsy o f prostate using ultrasound guidance Shanna IVORY Start: 02-19-2000 Extracorporeal shock wave lithotripsy of calculus of kidney Shanna IVORY Comment on above: LEFT Procedure on prostate Jame Barraza Work Phone: Ureterocystostomy Nahomi blevins Work Phone: Urinary catheter placement Yue Hernandez Work Phone: NEGATED: Highlighted row has not occurred! Total colonoscopy Jame Barraza Work Phone: Plan of Treatment Date Care Activity Detail Author Start: 03-27-2031 DTaP/Tdap/Td Vaccines (2 - Td or Tdap) DTaP/Tdap/Td Vaccines (2 - Td or Tdap) [facility] Start: 03-27-2031 Urine microalbumin profile DTAP,TDAP,TD (2 - Td or Tdap) [facility] Start: 06-26-2023 End: 06-26-2023 Patient encounter procedure 06/26/2023 3:10 PM EDT Office Visit [facility] [address] [place] [id number] Ashutosh Ling MD [address] [place] [address] [facility] Start: 06-07-2023 FUV, Provider: Ashutosh Ling, Status: Pen, Time: 11:20 AM FUV, Provider: Ashutosh Ling, Status: Pen, Time: 11:20 AM [facility] 250 DO Work Phone: Start: 01-09-2023 FUV, Provider: Ashutosh Ling, Status: Pen, Time: 3:30 PM FUV, Provider: Ashutosh Ling, Status: Pen, Time: 3:30 PM [facility] 250 DO Work Phone: Start: 10-19-2022 Influenza vaccination INFLUENZA (#1) [facility] Start: 09-05-2022 FUV, Provider: Ashutosh Ling, Status: Pen, Time: 12:50 PM FUV, Provider: Ashutosh Ling, Status: Pen, Time: 12:50 PM [facility] Work Phone: Start: 08-22-2022 [facility] Start: 08-20-2022 Consultation [facility] Start: 08-20-2022 Referral to cardiac rehabilitation program [facility] Start: 08-20-2022 [facility] Start: 08-20-2022 End: 08-20-2022 Hospital admission [facility] Start: 02-18-2022 ADVANCE DIRECTIVE DISCUSSION ADVANCE DIRECTIVE DISCUSSION [facility] Start: 02-18-2022 DEPRESSION ASSESSMENT DEPRESSION ASSESSMENT [facility] Start: 08-30-2021 FUV, Provider: Ashutosh Ling, Status: Pen, Time: 2:30 PM FUV, Provider: Ashutosh Ling, Status: Pen, Time: 2:30 PM -[facility] 250 DO Work Phone: Start: 04-03-2021 COVID-19 VACCINE (4 - Pfizer series) COVID-19 VACCINE (4 - Pfizer series) [facility] Start: 03-07-2021 FUV, Provider: Ashutosh Ling, Status: Pen, Time: 2:50 PM FUV, Provider: Ashutosh Ling, Status: Pen, Time: 2:50 PM -[facility] 250 DO Work Phone: Start: 11-28-2020 EVENT ELIEZER, Provider: FADUMO BENSON HEADEND TECHNICIAN 1,[id number], Status: Pen, Time: 10:30 AM EVENT ELIEZER, Provider: FADUMO BENSON HEADEND TECHNICIAN 1,[id number], Status: Pen, Time: 10:30 AM -[facility] 250 DO Work Phone: Start: 06-18-1995 SHINGRIX VACCINE (1 of 2) SHINGRIX VACCINE (1 of 2) [facility] Start: 06-18-1995 Zoster Vaccines (1 of 2) Zoster Vaccines (1 of 2) [facility] Start: 06-18-1963 ANNUAL PCP TEAM CHRONIC DISEASE VISIT ANNUAL PCP TEAM CHRONIC DISEASE VISIT [facility] Start: 06-18-1963 BP CONTROLLED (<130/80) BP CONTROLLED (<130/80) [facility] Start: 06-18-1963 Hepatitis B surface antibody level LDL CHOLESTEROL [facility] Start: 06-18-1963 HEPATITIS C SCREENING HEPATITIS C SCREENING [facility] Start: 06-18-1963 Hepatitis C screening Hepatitis C Screening [facility] Start: 06-18-1955 3 comp foot exam completed DIABETIC FOOT EXAM [facility] Start: 06-18-1955 Hepatitis B screening URINE ALBUMIN:CREATININE RATIO [facility] Start: 06-18-1955 Hepatitis C antibody, confirmatory test DILATED RETINAL EXAM [facility] Start: 1950 Hemoglobin A1c/Hemoglobin.total in Blood HBA1C [facility] Start: 1945 Lipid panel Lipid Panel [facility] Start: 1945 Medicare Annual Wellness Visit Medicare Annual Wellness Visit (AWV) [facility] Patient Education Coronary Angio plasty (DC) Coronary Stenting (DC) Angina (DC) Chest Pain (DC) Drug Eluting Stents [facility] Work Phone: Patient referral [facility] Work Phone: Immunizations Immunization Date Immunization Notes Care Provider Fa [facility] 02-18-2022 influenza nasal, unspecified formulation Deborah Ibarra RN [facility] 12-26-2021 Fluad Quadrivalent 0 .5 ML Intramuscular Prefilled Syringe Jame Barraza Work Phone: [facility] 12-26-2021 influenza, high dose seasonal, preservative-free Ashutosh Ling MD Work Phone: [facility] Work Phone: 03-27-2021 tetanus toxoid, redu shruti diphtheria toxoid, and acellular pertussis vaccine, adsorbed Deborah Ibarra RN [facility] 02-06-2021 Macrotherapy-BioNTech COVID-19 Vacc 30 MCG/0.3ML Intramuscular Suspension Jame Barraza Work Phone: [facility] 11-18-2020 influenza nasal, unspecified formulation Deborah Ibarra RN [facility] 11-10-2020 Fluad Quadrivalent 0 .5 ML Intramuscular Prefilled Syringe Jame Barraza Work Phone: [facility] 04-12-2020 Pfizer-BioNTech COVID-19 Vacc 30 MCG/0.3ML Intramuscular Suspension Jame Barraza Work Phone: [facility] 03-28-2020 COVID-19 original vaccine, age 12+ yr, monovalent (PFIZER-BIONTECH - PURPLE TOP) Deborah Ibarra RN [facility] 03-22-2020 Pfizer-BioNTLush Technologies COVID-19 Vacc 30 MCG/0.3ML Intramuscular Suspension Jame Barraza Work Phone: [facility] 03-21-2020 SARS-CoV-2 (COVID-19 ) Ad26 vaccine, recombinant Shanna IVORY [facility] Comment on above: Result Comment: unab le to give exact dates 12-16-2019 influenza (HD-IIV4) vaccine, age 65+ yr, high dose, quadrivalent, PF (FLUZONE HIGH-DOSE) Deborah Ibarra RN [facility] 12-16-2018 AS03 adjuvant Deborah Ibarra RN [facility] 12-24-2017 AS03 adjuvant Deborah Ibarra RN [facility] 12-21-2016 influenza, high dose seasonal, preservative-free Deborah Ibarra RN [facility] 02-19-2016 pneumococcal polysaccharide vaccine, 23 valent Jame Barraza Work Phone: [facility] Comment on above: Series: 11-23-2015 influenza, high dose seasonal, preservative-free Jame Barraza Work Phone: [facility] 10-20-2015 influenza nasal, unspecified formulation Deborah Ibarra RN [facility] 11-06-2014 influenza nasal, unspecified formulation Deborah Ibarra RN [facility] 11-06-2014 pneumococcal conjuga te vaccine, 13 valent Deborah Ibarra RN [facility] Payers Date Payer Category Payer Medicare [id number] 2022 Private Health Insurance [id number] 2022 Self-pay 2022 Medicare [id number] 2022 Medicare [id number] 1959 Medicare [id number] 1959 Private Health Insurance [id number] 1945 Unknown [id number] 1945 Unknown [id number] [id number] 1945 Unknown [id number] [id number]6 1945 Unknown [id number] [id number] 1945 Unknown [id number] 2.16.840.1.183895.3.579.2.356 1945 Unknown [id number] 2.840.1.532764.3.579.2.356 1945 Unknown [id number] 2.840.1.894566.3.579.2.356 1945 Unknown [id number] 2.840.1.761861.3.579.2.356 1945 Unknown [id number] 2.16840.1.944061.3.579.2.727 1945 Unknown [id number] 2.840.1.999985.3.579.2.727 1945 Unknown [id number] 2.840.1.270895.3.579.2.727 1945 Unknown [id number] 2.840.1.194764.3.579.2.727 1945 Unknown [id number] 2.16840.1.645801.3.579.2.727 1945 Unknown [id number] 2.840.1.188652.3.579.2.1244 1945 Unknown [id number] 2.840.1.437500.3.579.2.196 Private Health Insurance [facility] [id number] Unknown Unknown [id number] [id number] Social History Date Type Detail Facility Start: 01-08-2023 No alcohol use No alcohol use -[facility] DO Work Phone: Comment on above: 1 cup of coffee edelmira y; former cigar smoker; Start: 10-21-2020 End: 08-21-2022 Tobacco smoking status Never smoked tobacco (finding) [facility] Start: 01-08-2023 Sex Assigned At Male [facility] Start: 1945 Sex Assigned At Male F [facility] Tobacco smoking status [facility] Tobacco smoking consumption unknown [facility] Start: 1945 Sex Assigned At Not on file C [facility] Start: 01-08-2023 Tobacco smoking status NHIS Ex-smoker [facility] Work Phone: History of tobacco use Current smoker [facility] Work Phone: History of tobacco use Cigar Smoker [facility] Work Phone: Start: 01-08-2023 Tobacco use and exposure Smokeless tobacco non-user [facility] Work Phone: Start: 01-09-2023 Alcohol intake Ex-drinker (finding) [facility] Work Phone: Start: 12-30-2022 End: 01-09-2023 Exposure to SARS-CoV-2 (event) Not sure [facility] Medical Equipment Procedure Code Equipment Code Equipment Origin al Text Equipment Identifier Dates CL STENT BISHOP FRONTIER 3.0 X 26 FDA Start: 08-20-2022 Femoral artery closure plug/patch, synthetic polymer [id number] FDA Start: 08-20-2022 Goals Date Patient Goal Desired Activity /State Functional Status Date Assessment Result Facility 08-26-2022 Functional Status N/A [facility] 08-22-2022 Functional status Patient at [facility] Work Phone: 10-27-2021 Functional Status N/A [facility] Mental Status Date Assessment Result Facility 08-22-2022 Cognitive function Cognitive Sta tus Patient at Baseline [facility] Work Phone: Clinical Notes 10-27-2021 to 01-09-2023 Ashutosh Ling MD - 01/09/2023 3:30 PM ESTPatient Instructions Note Date & Type Note Facility 01-09-2023 History of Present illness Narrative Subjective Olaf Briones is a 77 y.o. male Chief Complaint Follow-up HPI Patient is here for follow-up continue management for history of coronary artery disease with recent PCI to the RCA with known moderate disease of the LAD, hypertension, hyperlipidemia. Since last time I saw him he reports he is feeling well. He is finishing cardiac rehab. He reported easy bruisability. He denies any other cardiac symptoms and remains very active. Assessment 1. Recent presentation with acute inferior wall myocardial infarction and PCI to the RCA with moderate disease of the LAD 2. Easy bruisability due to dual antiplatelet therapy 3. Hypertension controlled on home recording with component of whitecoat effect 4. Hyperlipidemia [facility] 5. Borderline abnormal EKG 6. Borderline overweight 7. Previous history of dizziness improved and no recurrence 8. Recent history of hematuria improved after TURP and removal of bladder stone Plan 1. I advised the patient to continue present medical therapy except reducing his aspirin to every other day considering his easy bruisability 2. I told him if there is any recurrence of his hematuria we will consider either switching him to Plavix or discontinuation of aspirin down the road 3. We discussed risk factor modification 4. I reviewed his cardiac rehab record 5. Follow-up in 6 months 6. I I advised him to notify me change in cardiac status or symptoms 7. I advised him to forward copy of his lab work [facility] Review of Systems Constitutional: Easy bruisability All other systems reviewed and are negative. Visit Vitals BP 142/76 (BP Location: Left arm, Patient Position: Sitting) Pulse 58 Ht 1.727 m (5' 8 ) Wt 79.8 kg (176 lb) BMI 26.76 kg/m Smoking Status Former BSA 1.96 m Objective Physical Exam Constitutional: Appearance: Normal appearance. He is normal weight. HENT: Nose: Nose normal. Neck: Vascular: No carotid bruit. Cardiovascular: Rate and Rhythm: Normal rate. Pulses: Normal pulses. Heart sounds: Normal heart sounds. Pulmonary: Effort: Pulmonary effort is normal. Abdominal: General: Bowel sounds are normal. Palpations: Abdomen is soft. Genitourinary: Rectum: Normal. Musculoskeletal: General: Normal range of motion. Cervical back: Normal range of motion. Right lower leg: No edema. Left lower leg: No edema. Skin: General: Skin is warm and dry. Neurological: General: No focal deficit present. Mental Status: He is alert. Psychiatric: Mood and Affect: Mood normal. Behavior: Behavior normal. Thought Content: Thought content normal. Judgment: Judgment normal. Current Medications Current Outpatient Medications: allopurinol (Zyloprim) 300 mg tablet, Take 1 tablet (300 mg) by mouth once daily., Disp: , Rfl: amLODIPine (Norvasc) 5 mg tablet, Take 1 tablet (5 mg) by mouth once daily., Disp: , Rfl: atorvastatin (Lipitor) 80 mg tablet, Take 1 tablet (80 mg) by mouth once daily at bedtime., Disp: , Rfl: carvedilol (Coreg) 6.25 mg tablet, Take 1 tablet (6.25 mg) by mouth 2 times a day with meals., Disp: , Rfl: lisinopril 5 mg tablet, Take 1 tablet (5 mg) by mouth once daily., Disp: , Rfl: nitroglycerin (Nitrostat) 0.4 mg SL tablet, Place 1 tablet (0.4 mg) under the tongue. Place 1 tablet under the tongue every 5 minutes up to 3 doses as needed for chest pain. Call 911 if pain persists, Disp: , Rfl: ticagrelor (Brilinta) 90 mg tablet, Take 1 tablet (90 mg) by mouth 2 times a day., Disp: , Rfl: aspirin 81 mg EC tablet, Take 1 tablet (81 mg) by mouth every other day., Disp: 45 tablet, Rfl: 3 Assessment/Plan 1. Arteriosclerotic cardiovascular disease Follow Up In Cardiology aspirin 81 mg EC tablet 2. Abnormal EKG Follow Up In Cardiology 3. Mixed hyperlipidemia Follow Up In Cardiology 4. Primary hypertension 5. Post PTCA 6. Essential hypertension 7. BMI 26.0-26.9,adult 8. Easy bruisability documented in this encounter [facility] Work Phone: 01-09-2023 Instructions Tarvis Peter MA - 01/09/2023 3:30 PM EST Please bring all medicines, vitamins, and herbal supplements with you when you come to the office. Prescriptions will not be filled unless you are compliant with your follow up appointments or have a follow up appointment scheduled as per instruction of your physician. Refills should be requested at the time of your visit. documented in this encounter [facility] Work Phone: 10-29-2022 Evaluation note Encounter Date Diagnosis Assessment Notes Oct, Impacted cerumen of both ears (ICD-10 - H61.23) Cerumen impaction home care material was printed Drink plenty fluids, get plenty of rest. Continue home medications as prescribed. Follow-up with your family physician for any further concerns [employer] Other 07-20-2023 Miscellaneous Notes* Telephone Encounter - Justine Wilson RN - 09/06/2022 10:31 AM EDT I tried calling the patient, no answer. Left VM. Dr. Andrews said patient can stop the flomax and trospium. She originally had recommended the flomax for residual prostate tissue but said he doesn't need to be on it. She is fine with him following up with Dr. Koroma for further management Justine Wilson RN * Telephone Encounter - Justine Wilson RN - 09/06/2022 10:31 AM EDT ----- Message from Jocelin Gr sent at 09/06/2022 8:23 AM EDT ----- Regarding: medciation script needed Contact: Pt is calling in to see if the flomax can be called in. The pharmacy is not at [facility]. I will need to call them when its done. Dr Koroma is asking why he is on flomax? Please advise. [facility] Miscellaneous Notes* Telephone Encounter - Deborah Ibarra RN - 09/04/2022 12:51 PM EDT PATIENT INFORMATION Record ID: [id number] Patient Name: [facility]: [facility]: [facility] Attending: David Andrews Center: Urology INSTRUCTIONS SN to remind patient of appointment date, time, location All Clear All Clear SURVEY INFORMATION Medical/Nurse Outbound Sales Specialist: Deborah Ibarra 1. Your discharge instructions are important in guiding you through the recovery process. Is there anything I could help you clarify on your discharge instructions? (Standard Question) No 2. Do you have a follow up appointment related to your hospital stay scheduled within the next 30 days? (Standard Question) Yes 3. If you have a drain or catheter, have you experienced any difficulties caring for these? (Red Flag Question) No, I have instructions I can follow 4. Have you had any stomach problems such as, constipation, diarrhea, bloating, nausea/vomiting, orpain? (Red Flag Question) No 5. Many patients have concerns about their medications once they are home. Do you have any questions about getting or taking your medications? (Standard Question) No 6. Do you have any new or different symptoms? (Standard Question) No [facility]23 NoteHNO ID: [id number] Author: Kathrin Dickerson RN Service: Care Management Author Type: Registered Nurse Type: Care Mgt Progress Note Filed: 08/31/2022 9:42 AM Note Text: CARE MANAGEMENT DISCHARGE NOTE SERVICE DATE: August 31, 2022 SERVICE TIME: 9:40 AM Admission Date: 08/27/2022 LOS: 4 days Discharge Arrangement Discharge Arrangement: Home with Self Care Services Arranged Medical Services: Other: See Comment (none needed) Caregiver Assessment Caregiver is ready, willing and able to meet the patient's needs as recommended by the inter-professional team: No Caregiver needed Transportation Arrangements Transportation Arrangements: Car Date of Trip: 08/31/22 Destination: Home Handoff Communication: Handoff to: Primary Care Physician Primary Care Physician Name/Phone: Jame Barraza MD [phone] Patient is medically stable for discharge, on RA, no dc needs. IMM provided on 08/30 by previous CM. Patients to discharge home. SIGNATURE: Kathrin Dickerson RN PATIENT NAME: Olaf Briones DATE: August 31, 2022 TIME: 9:40 AM CONTACT #: [id number] Note HNO ID: [id number] Author: Danyell Morris MD Service: Critical Care Author Type: Anesthesiologist Type: Progress Notes Filed: 08/31/2022 2:15 PM Note Text: SERVICE DATE: 08/31/2022 SERVICE TIME: 8:54 AM SURGICAL INTENSIVE CARE UNIT PROGRESS NOTE BRIEF HPI: Olaf Briones is a 77 year old male with PMHx of recent STEMI on 08/20/22 (s/p JUHI),HTN, HLD, DM, nephrolithiasis, transferred from [facility] for gross hematuria. He is now s/p Cystourethroscopy, clot evacuation, cystolitholapaxy, and TURP on 08/28. Intraoperative course: Airway - LMA, 2 PIV, was on golden gtt in OR, received 600 cc crystalloids, no blood products given. Per surgical team there was a significant amount of irrigation done. He was transported to SICU on nasal cannula. He was admitted to SICU for close monitoring given his recent STEMI s/p JUHI. 08/29: Patient is HDS. Primary and SICU discussed patient transfer to [facility]. 08/30:no acute events. Hemodynamically stable. 08/31: No acute events. HDS. Patient is doing well and ready for transfer/discharge per Urology. Subjective INTERVAL EVENTS: Improved Objective MEDICATIONS: Current medications and allergies reviewed. Recommended/planned medication changes discussed in detail in the A/P section below. Please refer to [facility] for list of inpatient medications. VITAL SIGNS: BP 137/62 Pulse 69 Temp 36.9 ?C (98.4 ?F) (Oral) Resp 16 Ht 173 cm (5' 8.11 ) Wt 77.9 kg (171 lb 11.8 oz) SpO2 95% BMI 26.03 kg/m? Current Weight: Weight: 77.9 kg (171 lb 11.8 oz) Admission Weight: Weight: 75.5 kg (166 lb 7.2 oz) PHYSICAL EXAM: General: Alert, no distress, cooperative, Smiling. Patient sitting up in bed on phone when examined. Skin: Skin color, texture, turgor normal. No rashes or lesions. Eyes: PERRLA, EOMI Lungs: Lungs clear to auscultation, Good diaphragmatic excursion Cardiac: Normal S1 and S2; no rubs, murmurs, or gallops Abdomen: Abdomen soft, non-tender, BS normal, No masses or organomegaly Neuro: Grossly normal cognition, motor function, and cranial nerves III-XII Pulses: 2+ radial Wound: Clean, dry and intact DATA: Diagnostic tests reviewed for today's visit: Most recent labs and imaging results. ICU Checklist Last Documented/Reviewed time: 08/31/2022 8:49 AM A= Assess, Prevent, Manage Pain Pain adequately controlled?: Yes C= Choice of Sedation and Analgesia RASS at Goal?: Yes B= Both Spontaneous Awakening and Breathing Trials Ventilator: None D= Delirium: Assess, Prevent and Manage ICU Delirium Status: CAM Negative - no action required Sleep adequate?: Yes Restraint Status: None E= Early Mobility/Excercise ICU Mobility: ICU Mobility-Pt Has Been Out of Bed: PT/OT Consults Ordered, Yes F= Family Engagement and Empowerment ICU plan of care visit at bedside in last 24 hours: Yes, Provider, RN, Patient/ designee ICU Disposition: ICU Disposition- Is Patient Clinically Ready to Transfer to RNF or SDU?: Yes, transfer to SDU or RNF today Discharge Planning: To be determined Prevention: Line Status: None Hernandez Status: Present, will maintain Hernandez Status Details: Surgery related/surgical need Pressure Injury Status: None GI/Stress Ulcer Prophylaxis: None - not required Nutrition is at Goal: Yes VTE Prophylaxis: Chemoprophylaxis: No chemoprophylaxis Mechanical Prophylaxis: Knee high SCD No Chemoprophylaxis Reason: Bleeding risk Assessment AND Plan Cardiovascular Essential (primary) hypertension Assessment: Patient on home amlodipine, carvedilol, lisinopril Plan - On home carvedilol and amlodipine - Holding home lisinopril Myocardial infarction (HCC) Assessment: STEMI on 08/19/2022 s/p JUHI Plan - Continue dual antiplatelet therapy with aspirin and ticagrelor Coronary artery disease involving [place] coronary artery of [place] heart Assessment: STEMI on 08/19/2022 s/p JUHI Plan - Continue dual antiplatelet therapy with aspirin and ticagrelor Endocrinology Type 2 diabetes mellitus without complication, without long-term current use of insulin (HCC) Assessment: Patient is not on home medications, not on home insulin. Patient given 4 units of SSI in past 24 hours. Sugars between 146-163 Plan: - SSI 3 - Monitor BG Other * Hematuria- (present on admission) S/p Cystourethroscopy, clot evacuation, cystolitholapaxy, and TURP on 08/18. Per urology there is concern for development of hyponatremia given the significant amount of irrigation that was necessary during the prodcedure. Na is stable above 135. CBI stopped at 6:30 AM today, Urology monitoring. Plan - Continue to monitor H/H - CMP q 6 hours to monitor Na - Management per urology, pending discharge/transfer Medication and Non-Pharmacologic VTE Prophylaxis/Anticoagulants Anticoagulant AND Antiplatelet Medications (From admiss (more content not included)...[facility]07-14-[facility] NoteHNO ID: [id number] Author: Prema Feliz MD Service: Urology Author Type: Resident Type: Progress Notes Filed: 08/31/2022 6:45 AM Note Text: [facility] UROLOGY PROGRESS NOTE Name: Olaf Briones Bed: H050 013/H050-13 Date: 08/31/2022 After Hours [facility] Urology Service Pager: [phone] ASSESSMENT AND PLAN Olaf Briones is a 77 year old male with PMHx of HTN, HLD, DM, recent STEMI (s/p JUHI, on Brillinta and ASA), nephrolithiasis s/p ESWL remote, BPH s/p TURP 2001, transferred from [facility] for gross hematuria. Currently with 18Fr 3-way catheter on CBI. Now 3 Days Post-Op s/p cystoscopy, clot evacuation, cystolitholapaxy, TURP. Admitted to SICU postoperatively due to pressor requirements and risk of hyponatremia due to length of TURP. 22Fr [address] hernandez placed introp, on traction and CBI. Transferred to [facility] 08/30. Interval: - AFVSS - Doing well, no CP, SOB, N/V, F/C - Hgb 10.4 stable, WBC 10, Cr 0.88 - CBI on slow drip, urine light pink, now clamped - Plan for discharge today with TOV at home w home urologist #Neuro - Pain control with PO/IV analgesia #CV/Resp - -SEAN (08/28): No wall motion abn, EF 55% -Encourage IS -Telemetry #GI - -Diet: Regular diet -Colace, Zofran # - -Scr: stable -UOP: Continue to monitor -Hernandez: Discharge with hernandez #FEN - Continue to monitor closely for hyponatremia #Activity - Bedrest #DVT prophylaxis - SCDs - Continue DAPT (ASA, Ticagrelor) #ID/Antibiotics - Bcx (08/27): NGTD x 3 day - Ucx (08/27): NGTD - Discontinued Zosyn #Secondary Dx/Complications- See active problems below #Discharge teaching - routine #Disposition - pending course, discharge today with hernandez. Will order flomax for home. Active Problems Prior VT POA: Yes - placed on ASA 81, ticagrelor 90 mg BID Nephrolithiasis POA: Yes - Monitor HLD POA: Yes - Home atorva 80 mg DM POA: Yes - SSI HTN POA: Yes - amlodipine 5mg daily, carvedilol 6.25 BID, lisinopril 2.5 mg daily Prema Feliz MD PGY-2 Resident Physician Urology Pager: [phone] For weekend or after hours issues [place] [phone] SUBJECTIVE See above Objective OBJECTIVE Vital Signs BP 114/56 Pulse 61 Temp 36.9 ?C (98.4 ?F) (Oral) Resp 15 Ht 173 cm (5' 8.11 ) Wt 77.9 kg (171 lb 11.8 oz) SpO2 95% BMI 26.03 kg/m? Input and Output Intake/Output Summary (Last 24 hours) at 08/31/2022 0645 Last data filed at 08/31/2022 0600 Gross per 24 hour Intake 6174.7 ml Output 48550 ml Net -5325.3 ml Physical Exam GEN: Alert, NAD EYES: Anicteric CV: Warm and well perfused LUNGS: Unlabored breathing on RA ABD: Soft, appropriately tender : Hernandez catheter present Labs Recent Labs 08/31/22 0024 08/30/22 0021 08/29/22 1831 08/29/22 1208 08/29/22 0323 WBC 10.56 15.06* -- -- 13.57* HB 10.4* 10.4* -- -- 10.6* HCT 30.7* 30.5* -- -- 30.7* PLT 194 192 -- -- 159 NA 139 138 140 < > 136 K 4.2 3.9 3.9 < > 4.1 CHLOR 105 103 102 < > 102 CO2 25 24 25 < > 22 BUN 21 22 21 < > 14 CREAT 0.88 0.77 0.86 < > 0.69* GLUC 114* 124* 166* < > 202* < > = values in this interval not displayed. Imaging Reviewed Prema Feliz MD PGY-2 Resident Physician Urology Pager: [phone] For weekend or after hours issues please page the [place]ager [place] [phone]23 NoteHNO ID: [id number] Author: Danyell Morris MD Service: Critical Care Author Type: Anesthesiologist Type: Progress Notes Filed: 08/30/2022 3:36 PM Note Text: SERVICE DATE: 08/30/2022 SERVICE TIME: 3:25 PM SURGICAL INTENSIVE CARE UNIT PROGRESS NOTE BRIEF HPI: Olaf Briones is a 77 year old male with PMHx of recent STEMI on 08/20/22 (s/p JUHI),HTN, HLD, DM, nephrolithiasis, transferred from [facility] for gross hematuria. He is now s/p Cystourethroscopy, clot evacuation, cystolitholapaxy, and TURP on 08/28. Intraoperative course: Airway - LMA, 2 PIV, was on golden gtt in OR, received 600 cc crystalloids, no blood products given. Per surgical team there was a significant amount of irrigation done. He was transported to SICU on nasal cannula. He was admitted to SICU for close monitoring given his recent STEMI s/p JUHI. 08/29: Patient is HDS. Primary and SICU discussed patient transfer to [facility]. 08/30:no acute events. Hemodynamically stable. Subjective INTERVAL EVENTS: hemodynamically stable. Objective MEDICATIONS: Current medications and allergies reviewed. Recommended/planned medication changes discussed in detail in the A/P section below. Please refer to [employer] for list of inpatient medications. VITAL SIGNS: BP 141/69 Pulse 76 Temp 36.9 ?C (98.4 ?F) (Oral) Resp (!) 36 Ht 173 cm (5' 8.11 ) Wt 78.3 kg (172 lb 9.9 oz) SpO2 96% BMI 26.16 kg/m? Current Weight: Weight: 84 kg (185 lb 3 oz) Admission Weight: Weight: 75.5 kg (166 lb 7.2 oz) PHYSICAL EXAM: General: Alert, no distress, cooperative Skin: Skin color, texture, turgor normal. No rashes or lesions. Eyes: PERRLA, EOMI Lungs: Lungs clear to auscultation, Good diaphragmatic excursion Cardiac: Normal S1 and S2; no rubs, murmurs, or gallops Abdomen: Abdomen soft, non-tender, BS normal, No masses or organomegaly Neuro: Grossly normal cognition, motor function, and cranial nerves III-XII Pulses: 2+ radial Wound: Clean, dry and intact DATA: Diagnostic tests reviewed for today's visit: Most recent labs and imaging results. ICU Checklist Last Documented/Reviewed time: 08/30/2022 3:23 PM A= Assess, Prevent, Manage Pain Pain adequately controlled?: Yes C= Choice of Sedation and Analgesia RASS at Goal?: Yes B= Both Spontaneous Awakening and Breathing Trials Ventilator: None D= Delirium: Assess, Prevent and Manage ICU Delirium Status: CAM Negative - no action required Sleep adequate?: Yes Restraint Status: None E= Early Mobility/Excercise ICU Mobility: ICU Mobility-Pt Has Been Out of Bed: PT/OT Consults Ordered F= Family Engagement and Empowerment ICU plan of care visit at bedside in last 24 hours: Yes, Provider, RN, Patient/ designee ICU Disposition: ICU Disposition- Is Patient Clinically Ready to Transfer to [facility] or SDU?: Yes, transfer to SDU or [facility] today Discharge Planning: To be determined Prevention: Line Status: None Hernandez Status: Present, will maintain Hernandez Status Details: Surgery related/surgical need Pressure Injury Status: None GI/Stress Ulcer Prophylaxis: None - not required Nutrition is at Goal: Yes VTE Prophylaxis: Chemoprophylaxis: No chemoprophylaxis Mechanical Prophylaxis: Knee high SCD No Chemoprophylaxis Reason: Bleeding risk Assessment AND Plan Cardiovascular Primary hypertension Assessment: Patient on home amlodipine, carvedilol, lisinopril Plan - Started home amlodipine and carvedilol - Holding homelisinopril Myocardial infarction (HCC) Assessment: STEMI on 08/19/2022 s/p JUHI Plan - Continue dual antiplatelet therapy with aspirin and ticagrelor Coronary artery disease involving [place] coronary artery of round valley heart Assessment: STEMI on 08/19/2022 s/p JUHI Plan - Continue dual antiplatelet therapy with aspirin and ticagrelor Gastrointestinal Malnutrition of mild degree (HCC) Assessment: Patient on liquid diet. Plan: - Advance to regular diet Endocrinology Type 2 diabetes mellitus without complication, without long-term current use of insulin (HCC) Assessment: Patient is not on home medications, not on home insulin. Patient given 2 units of SSI in past 24 hours. Sugars between 147-202 Plan -SSI 3 Hematology Leukocytosis Assessment: WBC count downtrending. Blood and urine cultures negative. On Zosyn since 08/27 Plan: - D/c zosyn per primary Other * Hematuria- (present on admission) S/p Cystourethroscopy, clot evacuation, cystolitholapaxy, and TURP on 08/18. Per urology there is concern for development of hyponatremia given the significant amount of irrigation that was necessary during the prodcedure. Na is stable above 135. Plan - Continue to monitor H/H - CMP q 6 hours to monitor Na - Management per urology Medication and Non-Pharmacologic VTE Prophylaxis/Anticoagulants Anticoagulant AND Antiplatel (more content not included)...[facility]07-13-2023 NoteHNO ID: [id number] Author: Prema Feliz MD Service: Urology Author Type: Resident Type: Progress Notes Filed: 08/30/2022 7:12 AM Note Text: [facility] UROLOGY PROGRESS NOTE Name: Olaf Briones Bed: H050 013/H050-13 Date: 08/30/2022 After Hours [facility] Urology Service Pager: [phone] ASSESSMENT AND PLAN Olaf Briones is a 77 year old male with PMHx of HTN, HLD, DM, recent STEMI (s/p JUHI, on Brillinta and ASA), nephrolithiasis s/p ESWL , BPH s/p TURP 2001, transferred from [facility] for gross hematuria. Currently with 18Fr 3-way catheter on CBI. Now 2 Days Post-Op s/p cystoscopy, clot evacuation, cystolitholapaxy, TURP. Admitted to SICU postoperatively due to pressor requirements and risk of hyponatremia due to length of TURP. 22Fr [address] hernandez placed introp, on traction and CBI. Awaiting bed on RNF. Interval: - Afebrile, SBPs 110s - Doing well, no CP, SOB, nausea, emesis, fevers, chills - Cr 0.77 stable - Hgb 10.4 stable, WBC 15 likely post operative - CBI very slow drip, hernandez draining light peach urine on traction - Awaiting bed on RNF #Neuro - Pain control with PO/IV analgesia #CV/Resp - -SEAN (08/28): No wall motion abn, EF 55% -Encourage IS -Telemetry #GI - -Diet: Regular diet -Colace, Zofran # - -Scr: stable -UOP: Continue to monitor -Hernandez: Continue on CBI, titrate to clear. Take off traction today and re-evaluate in afternoon #FEN - Continue to monitor closely for hyponatremia #Activity - Bedrest #DVT prophylaxis - SCDs - Continue DAPT (ASA, Ticagrelor) #ID/Antibiotics - Bcx (08/27): NGTD x 2 day - Ucx (08/27): NGTD - Discontinued Zosyn #Secondary Dx/Complications- See active problems below #Discharge teaching - routine #Disposition - pending course, will take hernandez off traction and evaluate for return of hematuria. If remains clear, will discharge today vs tomorrow Active Problems Prior VT POA: Yes - placed on ASA 81, ticagrelor 90 mg BID Nephrolithiasis POA: Yes - Monitor HLD POA: Yes - Home atorva 80 mg DM POA: Yes - SSI HTN POA: Yes - amlodipine 5mg daily, carvedilol 6.25 BID, lisinopril 2.5 mg daily Prema Feliz MD PGY-2 Resident Physician Urology Pager: [phone] For weekend or after hours issues [place] [phone] SUBJECTIVE See above Objective OBJECTIVE Vital Signs BP 111/56 Pulse 61 Temp 36.7 ?C (98.1 ?F) (Axillary) Resp 12 Ht 173 cm (5' 8.11 ) Wt 84 kg (185 lb 3 oz) SpO2 96% BMI 28.07 kg/m? Input and Output Intake/Output Summary (Last 24 hours) at 08/30/2022 0558 Last data filed at 08/30/2022 0500 Gross per 24 hour Intake 6400 ml Output 20783 ml Net -4150 ml Physical Exam GEN: Alert, NAD EYES: Anicteric CV: Warm and well perfused LUNGS: Unlabored breathing on RA ABD: Soft, appropriately tender : Hernandez catheter present Labs Recent Labs 08/30/22 0021 08/29/22 1831 08/29/22 1208 08/29/22 0323 08/29/22 0242 WBC 15.06* -- -- 13.57* 11.86* HB 10.4* -- -- 10.6* 9.1* HCT 30.5* -- -- 30.7* 25.7* PLT 192 -- -- 159 138* NA 138 140 139 136 137 K 3.9 3.9 3.9 4.1 4.0 CHLOR 103 102 105 102 103 CO2 24 25 24 22 20* BUN 22 21 14 14 12 CREAT 0.77 0.86 0.78 0.69* 0.64* GLUC 124* 166* 217* 202* 186* Imaging Reviewed Prema Feliz MD PGY-2 Resident Physician Urology Pager: [phone] For weekend or after hours issues please page the [place]ager [place] [phone] NoteHNO ID: [id number] Author: Ary Frazier RN Service: Care Management Author Type: Registered Nurse Type: Care Mgt Progress Note Filed: 08/29/2022 12:16 PM Note Text: CARE MANAGEMENT PROGRESS NOTE SERVICE DATE: 08/29/2022 SERVICE TIME: 12:12 PM LOS: 2 days Needs Prior to Discharge: To Be Determined;OT/PT Evaluation DISCHARGE PLAN Date/Time: TBD pending hospital course Disposition: home Transport: spouse will transport patient home Other Concerns: Patient lives with spouse at home. Patient reports independence at home with adl's/iadl's prior to admission. No oxygen, or cpaps at home. Had recent VT in past. Cardiology on consult. No current home health care. OT has skilled patient for home no needs, awaiting PT recommendations. No CM facilitated needs have currently been identified for this patient. Patients spouse will transport him home once discharge is confirmed. Please contact CM if discharge needs/concerns arise. D/C date TBD pending hospital course. CM will continue to follow this patient for transition of care/discharge planning. SIGNATURE: Ary Frazier RN PATIENT NAME: Olaf Briones DATE: August 29, 2022 TIME: 12:11 PM PAGER/CONTACT #: [phone]07-12-2023 NoteHNO ID: [id number] Author: Danyell Morris MD Service: Critical Care Author Type: Anesthesiologist Type: Progress Notes Filed: 08/29/2022 3:08 PM Note Text: SERVICE DATE: 08/29/2022 SERVICE TIME: 11:28 AM SURGICAL INTENSIVE CARE UNIT PROGRESS NOTE BRIEF HPI: Olaf Briones is a 77 year old male with PMHx of recent STEMI on 08/20/22 (s/p JUHI),HTN, HLD, DM, nephrolithiasis, transferred from [facility] for gross hematuria. He is now s/p Cystourethroscopy, clot evacuation, cystolitholapaxy, and TURP on 08/28. Intraoperative course: Airway - LMA, 2 PIV, was on golden gtt in OR, received 600 cc crystalloids, no blood products given. Per surgical team there was a significant amount of irrigation done. He was transported to SICU on nasal cannula. He was admitted to SICU for close monitoring given his recent STEMI s/p JUHI. 08/29: Patient is HDS. Primary and SICU discussed patient transfer to [facility]. Subjective INTERVAL EVENTS: Improved Objective MEDICATIONS: Current medications and allergies reviewed. Recommended/planned medication changes discussed in detail in the A/P section below. Please refer to [facility] for list of inpatient medications. VITAL SIGNS: BP 135/64 Pulse 80 Temp 36.7 ?C (98.1 ?F) (Oral) Resp (!) 34 Ht 173 cm (5' 8.11 ) Wt 84 kg (185 lb 3 oz) SpO2 97% BMI 28.07 kg/m? Current Weight: Weight: 84 kg (185 lb 3 oz) Admission Weight: Weight: 75.5 kg (166 lb 7.2 oz) PHYSICAL EXAM: General: Alert, no distress, cooperative Skin: Skin color, texture, turgor normal. No rashes or lesions. Eyes: PERRLA, EOMI Lungs: Lungs clear to auscultation, Good diaphragmatic excursion Cardiac: Normal S1 and S2; no rubs, murmurs, or gallops Abdomen: Abdomen soft, non-tender, BS normal, No masses or organomegaly Neuro: Grossly normal cognition, motor function, and cranial nerves III-XII Pulses: 2+ radial Wound: Clean, dry and intact DATA: Diagnostic tests reviewed for today's visit: Most recent labs and imaging results. ICU Checklist Last Documented/Reviewed time: 08/29/2022 11:20 AM A= Assess, Prevent, Manage Pain Pain adequately controlled?: Yes C= Choice of Sedation and Analgesia RASS at Goal?: Yes B= Both Spontaneous Awakening and Breathing Trials Ventilator: None D= Delirium: Assess, Prevent and Manage ICU Delirium Status: CAM Negative - no action required Sleep adequate?: Yes Restraint Status: None E= Early Mobility/Excercise ICU Mobility: ICU Mobility-Pt Has Been Out of Bed: PT/OT Consults Ordered F= Family Engagement and Empowerment ICU plan of care visit at bedside in last 24 hours: Yes, Provider, RN, Patient/ designee ICU Disposition: ICU Disposition- Is Patient Clinically Ready to Transfer [facility] or SDU?: Yes, transfer to SDU or [facility] today Discharge Planning: To be determined Prevention: Line Status: None Hernandez Status: Present, will maintain Hernandez Status Details: Surgery related/surgical need Pressure Injury Status: None GI/Stress Ulcer Prophylaxis: None - not required Nutrition is at Goal: Yes VTE Prophylaxis: Chemoprophylaxis: No chemoprophylaxis Mechanical Prophylaxis: Knee high SCD No Chemoprophylaxis Reason: Bleeding risk Assessment AND Plan Cardiovascular Essential (primary) hypertension Assessment: Patient on home amlodipine, carvedilol, lisinopril Plan - Started home amlodipine and carvedilol - Holding homelisinopril Myocardial infarction (HCC) Assessment: STEMI on 08/19/2022 s/p JUHI Plan - Continue dual antiplatelet therapy with aspirin and ticagrelor Coronary artery disease involving [place] coronary artery of [place] heart Assessment: STEMI on 08/19/2022 s/p JUHI Plan - Continue dual antiplatelet therapy with aspirin and ticagrelor Gastrointestinal Malnutrition of mild degree (HCC) Assessment: Patient on liquid diet. Plan: - Advance to regular diet Endocrinology Type 2 diabetes mellitus without complication, without long-term current use of insulin (HCC) Assessment: Patient is not on home medications, not on home insulin. Patient given 2 units of SSI in past 24 hours. Sugars between 147-202 Plan -SSI 3 Hematology Leukocytosis Assessment: WBC count downtrending. Blood and urine cultures negative. On Zosyn since 08/27 Plan: - D/c zosyn per primary Other * Hematuria- (present on admission) S/p Cystourethroscopy, clot evacuation, cystolitholapaxy, and TURP on 08/18. Per urology there is concern for development of hyponatremia given the significant amount of irrigation that was necessary during the prodcedure. Na is stable above 135. Plan - Continue to monitor H/H - CMP q 6 hours to monitor Na - Management per urology - Urology AND SICU ok for transfer to [facility] Medication and Non-Pharmacologic VTE Prophylaxis/Anticoagulants Anticoagulant AND Antiplatelet Medica (more content not included)...[facility]07-12-2023 NoteHNO ID: [id number] Author: David Andrews MD Service: Urology Author Type: Physician Type: Progress Notes Filed: 08/29/2022 7:09 PM Note Text: [facility] UROLOGY PROGRESS NOTE Name: Olaf Briones Bed: H050 013/H050-13 Date: 08/29/2022 After Hours [facility] Urology Service Pager: [phone] ASSESSMENT AND PLAN Olaf Briones is a 77 year old male with PMHx of HTN, HLD, DM, recent STEMI (s/p JUHI, on Brillinta and ASA), nephrolithiasis s/p ESWL remote, BPH s/p TURP 2001, transferred from [facility] for gross hematuria. Currently with 18Fr 3-way catheter on CBI. Now 1 Day Post-Op s/p cystoscopy, clot evacuation, cystolitholapaxy, TURP. Admitted to SICU postoperatively due to pressor requirements and risk of hyponatremia due to length of TURP. [address] hernandez placed introp, on traction and CBI. Interval: - AFVSS, off pressors - Doing well. No chest pain, SOB - Na 136, Cr 0.69 stable - Hgb 10.6 (9.1) stable - CBI at fast drip, hernandez draining crystal clear urine without clots #Neuro - Pain control with PO/IV analgesia #CV/Resp - -SEAN (08/28): No wall motion abn, EF 55% -Encourage IS -Continue telemetry on [facility] #GI - -Diet: Regular diet -Colace, Zofran # - -Scr: stable -UOP: Continue to monitor -Hernandez: Continue on CBI, titrate to clear #FEN - Continue to monitor closely for hyponatremia #Activity - Bedrest #DVT prophylaxis - SCDs - Continue DAPT (ASA, Ticagrelor) #ID/Antibiotics - Bcx (08/27): NGTD x 1 day - Ucx (08/27): NGTD - Discontinue Zosyn #Secondary Dx/Complications- See active problems below #Discharge teaching - routine #Disposition - pending course, to [facility] today if SICU agrees it is appropriate. Plan for discharge tomorrow. Active Problems Prior VT POA: Yes - placed on ASA 81, ticagrelor 90 mg BID Nephrolithiasis POA: Yes - Monitor HLD POA: Yes - Home atorva 80 mg DM POA: Yes - SSI HTN POA: Yes - amlodipine 5mg daily, carvedilol 6.25 BID, lisinopril 2.5 mg daily Prema Feliz MD PGY-2 Resident Physician Urology Pager: [phone] For weekend or after hours issues [place] [phone] CHIEF RESIDENT ADDENDUM POD#1 s/p cysto, TURP, clot evac, bladder stone removal. Doing well, 22Fr 3w hernandez with 30cc in balloon remains on moderate traction. Patient overall feels well, minimal bladder spasms, tolerating catheter with traction without significant difficulty. On my arrival CBI clamped at bags x2, urine clear light pink in proximal tubing and clear in distal tubing suggesting recent bag change with incidental lack of initiation of drip. Manually irrigated with ~180cc of saline, miniscule small clot noted in background of clear drainage. CBI resumed at slow rate, output clear faint light pink BP 123/58 Pulse 72 Temp 36.7 ?C (98.1 ?F) (Oral) Resp 16 Ht 173 cm (5' 8.11 ) Wt 84 kg (185 lb 3 oz) SpO2 97% BMI 28.07 kg/m? Intake/Output Summary (Last 24 hours) at 08/29/2022 0835 Last data filed at 08/29/2022 0700 Gross per 24 hour Intake 37688.5 ml Output 75895 ml Net 5853.5 ml Gen: No apparent distress, appears stated age, well-nourished, supine in hospital bed, appropriate affect Eyes: Anicteric, conjugate gaze Head/Neck: Normocephalic, atraumatic Pulmonary: no increased WOB on RA Cardiac: well perfused throughout Abdomen: - Soft, non-distended, non-tender in all quadrants. : - see above Plan: -Continue hernandez catheter, wean CBI -Floor today -Tele once transferred to floor -Cont brillinta and ASA, appreciate cards recs Gt Mcgowan MD Resident PGY-6 Urology [facility] Please page Dr. Feliz with any patient care issues. SUBJECTIVE See above Objective OBJECTIVE Vital Signs BP 123/58 Pulse 72 Temp 36.5 ?C (97.7 ?F) (Oral) Resp 16 Ht 173 cm (5' 8.11 ) Wt 84 kg (185 lb 3 oz) SpO2 97% BMI 28.07 kg/m? Input and Output Intake/Output Summary (Last 24 hours) at 08/29/2022 0832 Last data filed at 08/29/2022 0700 Gross per 24 hour Intake 37023.5 ml Output 10887 ml Net 5853.5 ml Physical Exam GEN: Alert, NAD EYES: Anicteric CV: Warm and well perfused LUNGS: Unlabored breathing on RA ABD: Soft, appropriately tender : Hernandez catheter present Labs Recent Labs 08/29/22 0323 08/29/22 0242 08/28/222127 WBC 13.57* 11.86* 16.02* HB 10.6* 9.1* 12.1* HCT 30.7* 25.7* 35.7* PLT 159 138* 179 NA 136 137 139 K 4.1 4.0 4.2 CHLOR 102 103 105 CO2 22 20* 24 BUN 14 12 14 CREAT 0.69* 0.64* 0.76 GLUC 202* 186* 147* Imaging Reviewed Prema Feliz MD PGY-2 Resident Physician Urology Pager: [phone] For weekend or after hours issues [place] [phone] [facility] STAFF PHYSICIAN NOTE OF PERSONAL INVOLVEMENT IN CARE I have reviewed the progress note obtained and documented by the resident (more content not included)...[facility]07-11-2023 NoteHNO ID: [id number] Author: Molly Rosado APRN.RANGE AID Service: ? Author Type: Nurse Neurological Surgeon Type: Anesthesia Procedure Notes Filed: 08/28/2022 7:27 PM Note Text: ANESTHESIOLOGY PROCEDURE NOTE PIV General Information Procedure Start Time/Medication Administration: 08/28/2022 7:26 PM Staffing RANGE AID: Molly Rosado APRN.CRNA Preparation Sterility Preparation: hand hygiene performed prior to procedure, surgical cap used, mask used, skin prep agent completely dried prior to procedure Sterility Technique Not Completely Performed Due to Extreme Emergency: No Site Prep: alcohol Procedure Details Indication: need for IV access Needle Size/Type: 18 gauge angiocath Orientation: Left Location: Hand Imaging Guidance Used: No SIGNATURE: Molly Rosado APRN.CRNA PATIENT NAME: Olaf Briones DATE: August 28, 2022 TIME: 7:26 PM CSN: [id number] Health [facility]07-11-2023 NoteHNO ID: [id number] Author: Molly Rosado APRN.RANGE AID Service: ? Author Type: Nurse Neurological Surgeon Type: Anesthesia Procedure Notes Filed: 08/28/2022 6:31 PM Note Text: ANESTHESIOLOGY PROCEDURE NOTE Airway General Information Procedure Start Time/Medication Administration: 08/28/2022 6:10 PM Patient location during procedure: OR Timeout Performed Pre-procedure: timeout performed Consent Obtained: Yes Patient identity confirmed: arm band and patient Staffing RANGE AID: Molly Rosado APRN.CRNA Indications and Patient Condition Indications for airway management: anesthesia Preoxygenated: yes anesthesia circuit Patient position: sniffing Method: asleep Cricoid Pressure: No Manual In-Line Stabilization: No Difficult Mask: No Final Airway Details Final airway type: supraglottic airway Number of attempts at approach: 1 Final Supraglottic Airway: i-gel Size 4 Seal Adequate: yes Failed airway: no Unrecognized esophageal intubation: no Airway not difficult SIGNATURE: Molly Rosado APRN.CRNA PATIENT NAME: Olaf Briones DATE: August 28, 2022 TIME: 6:31 PM CSN: [id number] Health [facility] Hospital07-11-2023 NoteHNO ID: [id number] Author: Prema Feliz MD Service: Urology Author Type: Resident Type: Progress Notes Filed: 08/28/2022 9:47 PM Note Text: [facility] UROLOGY PROGRESS NOTE Name: Olaf Briones Bed: H0 013/H050-13 Date: 08/28/2022 After Hours [facility] Urology Service Pager: [phone] ASSESSMENT AND PLAN Olaf Briones is a 77 year old male with PMHx of HTN, HLD, DM, recent STEMI (s/p JUHI, on Brillinta and ASA), nephrolithiasis s/p ESWL , BPH s/p TURP 2001, transferred from [facility] for gross hematuria. Currently with 18Fr 3-way catheter on CBI. Now Day of Surgery s/p cystoscopy, clot evacuation, cystolitholapaxy, TURP. Admitted to SICU postoperatively due to pressor requirements and risk of hyponatremia due to length of TURP. [address] hernandez placed introp, on traction and CBI. Interval: - Admitted to SICU post op for close monitoring of electrolyte status and given recent STEMI - Doing well on post op check. Denies chest pain, shortness of breath, fever, chills, bladder pressure - BP 140s, Hr 60s, on 2L NC - Off pressors - Hgb 12.1 (11.1) stable - Urine pink with CBI on moderate/fast drip, on traction #Neuro - Pain control with PO/IV analgesia #CV/Resp - -HDS -Encourage IS -SEAN (08/28): No wall motion abn, EF 55% #GI - -Diet: Clear liquids -Colace, Zofran # - -Scr: stable -UOP: Continue to monitor -Hernandez: Continue on CBI fast dripand traction #FEN - Continue to monitor closely for hyponatremia #Activity - Bedrest #DVT prophylaxis - SCDs - Continue DAPT (ASA, Ticagrelor) #ID/Antibiotics - On IV Zosyn - F/u Ucx, BCx #Secondary Dx/Complications- See active problems below #Discharge teaching - routine #Disposition - pending course, in SICU Active Problems Prior VT POA: Yes - placed on ASA 81, ticagrelor 90 mg BID Nephrolithiasis POA: Yes - Monitor HLD POA: Yes - Home atorva 80 mg DM POA: Yes - SSI HTN POA: Yes - amlodipine 5mg daily, carvedilol 6.25 BID, lisinopril 2.5 mg daily Prema Feliz MD PGY-2 Resident Physician Urology Pager: [phone] For weekend or after hours issues [place] [phone] SUBJECTIVE See above Objective OBJECTIVE Vital Signs BP 112/52 Pulse 69 Temp 36.9 ?C (98.4 ?F) (Oral) Resp 18 Ht 173 cm (5' 8.11 ) Wt 75.5 kg (166 lb 7.2 oz) SpO2 97% BMI 25.23 kg/m? Input and Output Intake/Output Summary (Last 24 hours) at 08/28/20221955 Last data filed at 08/28/2022 1830 Gross per 24 hour Intake 68175 ml Output 30561 ml Net -1875 ml Physical Exam GEN: Alert, NAD EYES: Anicteric CV: Warm and well perfused LUNGS: Unlabored breathing on RA ABD: Soft, appropriately tender : Hernandez catheter present Labs Recent Labs 08/28/22 1923 08/28/22 0805 08/27/22 0710 WBC -- 11.53* 16.24* HB -- 11.1* 13.4 HCT -- 32.6* 38.5* PLT -- 172 214 NA -- 141 140 K -- 4.0 4.3 CHLOR -- 108* 105 CO2 25 24 22 BUN -- 18 17 CREAT -- 0.79 0.79 GLUC -- 137* 197* Imaging Reviewed Prema Feliz MD PGY-2 Resident Physician Urology Pager: [phone] For weekend or after hours issues please page the [place]-call urology [place]ager [place] [phone] Health [facility] Hospital07-11-2023 NoteHNO ID: [id number] Author: Prema Feliz MD Service: Urology Author Type: Resident Type: Progress Notes Filed: 08/28/2022 8:02 AM Note Text: [facility] UROLOGY PROGRESS NOTE Name: Olaf Briones Bed: H050 013/H050-13 Date: 08/28/2022 After Hours [facility] Service Pager: [phone] ASSESSMENT AND PLAN Olaf Briones is a 77 year old male with PMHx of HTN, HLD, DM, recent STEMI (s/p JUHI, on Brillinta and ASA), nephrolithiasis s/p ESWL remote, BPH s/p TURP 2001, transferred from [facility] for gross hematuria. Currently with 18Fr 3-way catheter on CBI. Interval: Doing well today No chest pain, lightheadedness, SOB Awaiting AM labs Urine fruit punch on fast drip CBI Planning for OR for cysto, fulguration today Will need anesthesia and cards clearance prior #Neuro - Pain control with PO/IV analgesia #CV/Resp - -HDS -Encourage IS - Appreciate cardiology recs, will obtain SEAN and clearance prior to OR - Will need anesthesia clearance prior to OR #GI - -Diet: NPO -Colace, Zofran # - -Scr: stable -UOP: Continue to monitor -Hernandez: Continue on CBI #Activity - OOB to chair and Ambulate with assistance. Stressed importance of getting out of bed #DVT prophylaxis - SCDs, on ASA, Ticagrelor #ID/Antibiotics - On IV Zosyn - F/u Ucx, BCx #Secondary Dx/Complications- See active problems below #Discharge teaching - routine #Disposition - pending course, planning for OR for cysto, fulguration today Active Problems Prior VT POA: Yes - placed on ASA 81, ticagrelor 90 mg BID Nephrolithiasis POA: Yes - Monitor HLD POA: Yes - Home atorva 80 mg DM POA: Yes - SSI HTN POA: Yes - amlodipine 5mg daily, carvedilol 6.25 BID, lisinopril 2.5 mg daily Essential elements of above plan discussed with staff, Dr. Sharon Feliz MD PGY-2 Resident Physician Urology Pager: [phone] For weekend or after hours issues [place] [phone] SUBJECTIVE See above Objective OBJECTIVE Vital Signs BP 116/57 Pulse 69 Temp 36.5 ?C (97.7 ?F) (Oral) Resp 18 Ht 173 cm (5' 8.11 ) Wt 75.5 kg (166 lb 7.2 oz) SpO2 97% BMI 25.23 kg/m? Input and Output Intake/Output Summary (Last 24 hours) at 08/28/2022721 Last data filed at 08/28/2022 0716 Gross per 24 hour Intake 20138.5 ml Output 11852 ml Net -92110.5 ml Physical Exam GEN: Alert, NAD EYES: Anicteric CV: Warm and well perfused LUNGS: Unlabored breathing on RA ABD: Soft, appropriately tender : Hernandez catheter present Labs Recent Labs 08/27/22 0710 WBC 16.24* HB 13.4 HCT 38.5* PLT 214 NA 140 K 4.3 CHLOR 105 CO2 22 BUN 17 CREAT 0.79 GLUC 197* Imaging Reviewed Prema Feliz MD PGY-2 Resident Physician Urology Pager: [phone] For weekend or after hours issues please page the on-call urology pager at [phone] NoteHNO ID: [id number] Author: Naomy Adkins MD Service: Urology Author Type: Resident Type: Plan of Care Filed: 08/27/2022 7:16 AM Note Text: UROLOGY PLAN OF CARE: Continuous Bladder Irrigation PURPOSE: - To prevent blood clot formation, allow free flow of urine, and maintain indwelling hernandez catheter patency. CATHETER BLOCKAGE: - Clot retention (catheter blockage) manifests itself with suprapubic distention, severe discomfort in the lower abdomen, sensation of needing to urinate, and passing of fluid around the catheter. Other symptoms include no urine output, and vaso-vagal symptoms ie sweating, tachycardia, hypotension, rectal urgency. - If the catheter becomes blocked during continuous bladder irrigation, the irrigation should be turned off immediately to prevent further bladder filling and further discomfort to the patient. - Manual bladder irrigation is necessary when the catheter cannot be unblocked (i.e. flushed with a bc syringe through catheter port with 60cc NS and withdraw 60cc). - Notify Urology On-Call - Re-catheterization should not be attempted by nursing team. TROUBLESHOOTIN. Drainage out is less than irrigation infused. Stop the irrigation. Recalculate I AND O. Ensure that tubing is not kinked or looped below bladder level. Palpate bladder for distention. Use bladder scanner if available. If obstruction is suspected, gentle manual irrigation may be required as per physician?s orders. Notify physician if previous measures unsuccessful. 2. Increased bloody drainage or presence of clots. Increase rate of irrigation infusion as per physician?s orders. Irrigation of catheter to aid in clot removal may be indicated. If large amount blood or clots persists, notify Urology. 3. Patient complains of pain. Palpate bladder to determine presence of distention. Check drainage tubing for kinks. Observe drainage for adequate amount, presence of clots that might be blocking drainage tube. Evaluate I AND O. Avoid cold irrigation solution as it may cause bladder spasm. 4. Solution leaks around the hernandez catheter. Assess for bladder spasms. Refer to #1 - assessing for obstruction. Once obstruction has been ruled out, consider administering antispasmodics (ditropan, belladonna and opium suppositories, levsin, etc).[facility]07-09-[facility] Evaluation + Plan noteExtracted from: Title:Urology Consult and H&P 2 Author:Alexandre KOROMA MD Date:08/26/22 Patient: OLAF BRIONES Age: 77 years Sex: Male : 1945 Associated Diagnoses: None Author: Alexandre KOROMA MD Chief Complaint 08/26/2022 17:07 EDT pt to ER with c/o lower pelvic pain and blood clots in urine that started saturday. history of kidney stones. just had a stent placed last saturday at [facility]. sees dr ivory Thank for consultation on this 77-year-old white male who presented with the acute onset of gross hematuria inability to urinate, passage of clots. He had an NSTEMI last week and was subsequently placed on Brilinta for anticoagulation. He is a patient of Dr. Ivory and has a history of kidney stones in the distant past. He was last seen in the office back in October with a KUB. Three-way Hernandez catheter was placed with about 500 cc urinary retention. This is draining intermittently rosaura blood in the catheter is clogging up intermittently. He just returned from CT scan. He has significant suprapubic discomfort from a distended bladder at present. The entire past medical history, past surgical history, systems review, family history, social history, medications, and allergies are as noted in the admission history and physical performed by Dr. Salguero and is unchanged. Health Status Allergies: Allergic Reactions (Selected) Severity Not Documented Albuterol- Headache. Bactrim- Unknown. HydroCHLOROthiazide- Rash., Allergies (3) ActiveReaction albuterolHeadache BactrimUnknown hydroCHLOROthiazideRash Current medications: (Selected) Documented Medications Documented allopurinol 300 mg Tab: 300 mg = 1 tab(s), Oral, Daily amLODIPine 5 mg Tab: 5 mg = 1 tab(s), Oral, Daily diclofenac sodium 75 mg Oral EC Tab: 75 mg = 1 tab(s), Oral, BID metoprolol 25 mg ER Tab: 25 mg = 1 tab(s), Oral, Daily, Refills(s) 0 rosuvastatin 20 mg Tab: 10 mg = 0.5 tab(s), Oral, Daily, Home Medications (5) Active allopurinol 300 mg Tab 300 mg = 1 tab(s), Oral, Daily amLODIPine 5 mg Tab 5 mg = 1 tab(s), Oral, Daily diclofenac sodium 75 mg Oral EC Tab 75 mg = 1 tab(s), Oral, BID metoprolol 25 mg ER Tab 25 mg = 1 tab(s), Oral, Daily rosuvastatin 20 mg Tab 10 mg = 0.5 tab(s), Oral, Daily Problem list: All Problems BPH with urinary obstruction / SNOMED CT 9657451549 / Confirmed Kidney stone / SNOMED CT 155000338 / Confirmed Weak urinary stream / SNOMED CT 865671559 / Confirmed Microscopic hematuria / SNOMED CT 439675100 / Confirmed Diabetes / SNOMED CT 085661398 / Confirmed Hypertension / SNOMED CT 3537340366 / Confirmed Prostatitis / SNOMED CT 57927127 / Confirmed BPH without urinary obstruction / SNOMED CT 0357239503 / Confirmed Gross hematuria / SNOMED CT 106091995 / Confirmed Asymptomatic microscopic hematuria / SNOMED CT 5094123381 / Confirmed, Active Problems (10) Asymptomatic microscopic hematuria BPH with urinary obstruction BPH without urinary obstruction Diabetes Gross hematuria Hypertension Kidney stone Microscopic hematuria Prostatitis Weak urinary stream Histories Past Medical History: No active or resolved past medical history items have been selected or recorded. Family History: Hypertension Father Procedure history: Cystoscopy ([id number]) on 08/18/2013 at 68 Years. Comments: 10/02/2018 16:11 EDT - Katie Rogers MA 11/08/200904/2006 TURP - Transurethral resection of prostate ([id number]) in 2006 at 61 Years. Urodynamics (024619764) in 2006 at 61 Years. Transrectal biopsy of prostate using ultrasound (US) guidance (3240408630) in 2005 at 60 Years. ESWL - Extracorporeal shockwave lithotripsy for renal calculus (835127317) in 2000 at 55 Years. Comments: 10/02/2018 16:11 EDT - Katie Rogers MA LEFT Social History Social & Psychosocial Habits Alcohol 10/24/2018 Use: Current Frequency: 1-2 times per month 08/26/2022Risk Assessment: Denies Alcohol Use Substance Abuse 08/26/2022Risk Assessment: Denies Substance Abuse Tobacco 10/21/2020 Tobacco Use: Never (less than 100 in l 08/26/2022Risk Assessment: Denies Tobacco Use . Physical Examination General: Alert and oriented, Moderate distress. Eye: Pupils are equal, round and reactive to light. HENT: Normocephalic. Neck: Supple. Respiratory: Lungs are clear to auscultation. Cardiovascular: Normal rate, Regular rhythm, No murmur. Gastrointestinal: Soft, Non-tender, Non-distended. Vital Signs 08/26/2022 20:10 EDT Heart Rate Monitored 84 bpm Respiratory Rate Monitored 16 br/min Systolic Blood Pressure 197 mmHg HI Diastolic Blood Pressure 89 mmHg Mean Arterial Pressure, Cuff 125 mmHg SpO2 96 % 08/26/2022 19:17 EDT Heart Rate Monitored 63 bpm Respiratory Rate 18 br/min Systolic Blood Pressure 131 mmHg Diastolic Blood Pressure 69 mmHg Mean Arterial Pressure, Cuff 90 mmHg SpO2 96 % 08/26/2022 18:11 EDT Heart Rate Monitored 74 bpm Respiratory Rate 18 br/min Systolic Blood Pressure 147 mmHg HI Diastolic Blood Pressure 84 mmHg Mean Arterial Pressure, Cuff 105 mmHg SpO2 97 % 08/26/2022 17:07 EDT Temperature Oral 36.5 DegC Peripheral Pulse Rate 83 bpm Respiratory Rate 18 br/min Systolic Blood Pressure 191 mmHg HI Diastolic Blood Pressure 143 mmHg HI SpO2 100 % Measurements from flowsheet : Measurements 08/26/2022 17:07 EDT Height/Length Measured 172 cm Height/Length Dosing 172.0 cm Weight Dosing 78.2 kg Body Mass Index Measured 26.43 kg/m2 Weight Measured 78.2 kg Genitourinary: Normal genitalia for age and sex, Three-way Hernandez catheter indwelling and intermittently draining gross blood and then grossly bloody urine. Patient has some positive suprapubic distention from incomplete emptying most likely from blood clots blocking the outlet of the catheter.. Kidney: No costovertebral angle tenderness. Groin/ inguinal region: Bilateral, Within normal limits. Penis: Within normal limits. Testes: Bilateral, Within normal limits. Epididymis: Bilateral, Within normal limits. Lymphatics: No lymphadenopathy. Musculoskeletal Normal range of motion. Integumentary: Warm, Dry, Frisbee. Neurologic: Alert, Oriented, Normal sensory. Psychiatric: Cooperative, Appropriate mood & affect, Normal judgment. Review / Management Results review: Labs (Last four charted values) Hgb 14.0(AUG 26) Hct 40.9(AUG 26) Cr 0.9(AUG 26) , Lab results 08/26/2022 18:58 EDT UA Spec Desc Catheter UA Color Red UA Clarity Cloudy UA Spec Grav 1.015 UA pH 7.5 UA Protein 3+ UA Glucose Trace UA Ketones 1+ UA Bili Negative UA Blood 3+ UA Nitrite Positive UA Urobilinogen >=8.0 EU/dL UA Leuk Est 2+ UA RBC >75 /HPF UA Squam Epithelial 0-2 /HPF UA WBC 16-25 /HPF UA Bacteria 1+ /HPF UA Mucous 1+ 08/26/2022 18:42 EDT WBC 15.5 E9/L HI RBC 4.4 E12/L HGB 14.0 gm/dL Hct 40.9 % MCV 91.9 fL MCH 31.3 pg MCHC 34.1 gm/dL RDW 13.4 % Platelet 194.0 E9/L MPV 9.6 fL Neutro Auto 87.6 % HI Lymph Auto 6.1 % LOW [place] Auto 4.9 % Eos Auto 0.9 % Basophil Auto 0.5 % Neutro Absolute 13.5 E9/L HI Lymph Absolute 0.9 E9/L LOW [place] Absolute 0.8 E9/L Eos Absolute 0.1 E9/L Basophil Absolute 0.1 E9/L PT 12.8 second(s) HI INR 1.2 NA PTT 31.1 second(s) Glucose Lvl 154 mg/dL BUN 18 mg/dL Creatinine 0.9 mg/dL eGFR 88 mL/min/1.73 m2 BUN/Creat Ratio 20 Sodium Lvl 138 mmol/L Potassium Lvl 4.0 mmol/L Chloride 105 mmol/L CO2 24 mmol/L AGAP 13 mEq/L Calcium Lvl 8.9 mg/dL . Impression and Plan Diagnosis Abnormal CT scan, bladder (ZHH13-SS R93.41, Working, Medical). Anticoagulated by anticoagulation treatment (EYI99-ZX Z79.01, Working, Medical). BPH with obstruction/lower urinary tract symptoms (XWO17-EE N40.1, Working, Medical). Gross hematuria (DQX89-WC R31.0, Discharge, Medical). S/P TURP (status post transurethral resection of prostate) (SJP40-VO Z90.79, Working, Medical). Urinary retention (XAQ25-IN R33.9, Discharge, Medical). Course: Worsening, Viewed CT scan. Discussed with the patient and his . Laboratory data reviewed, urinalysis viewed. Patient has gross hematuria and an abnormal CT scan with either blood clots or still significant prostatic enlargement despite prior prostate resection versus bladder neoplasm. He has bladder distention despite indwelling catheter, most likely from blockage from the catheter outlet port by blood clots. I performed bedside manual irrigation and obtained a fair number of clots in the bladder. Catheter placed back to CBI and is draining intermittently clear and then again bright red. This most likely would indicate ongoing gross hematuria. The patient has the complicating factor of needing to be on anticoagulants given his coronary artery stenting last week. This raises many of the risks associated with the surgery including recurrent and or persistent bleeding despite operative intervention. Further review of the CT scan/CT urogram demonstrates filling defect in the bladder which could actually be prostate despite previous prostate resection. The Hernandez catheter seems to be deviated to the left. The wrist prostatic calcification and possibly a large median lobe extending inward as well. The summary is that the patient has ongoing bleeding and will require surgical intervention most likely. I have scheduled him for cystoscopy and a declotting and possible fulguration and possible further intervention tomorrow afternoon. I discussed this with the patient and his . This is a high risk procedure. The difficulty as we cannot stop his anticoagulants secondary to the recent coronary artery stenting. Currently his hemoglobin hematocrit are acceptable but this needs monitored. We will discuss with Dr. Salguero as well, admitting hospitalist. Antibiotic prophylaxis will also be recommended. N.p.o. after midnight. Addendum by Alexandre KOROMA MD on August 26, 2022 22:22 EDT Repeat hand irrigation of multiple clots over 20 min. was required approximately 15 minutes after I had just hand irrigated for approximately half an hour. Obviously there is ongoing bleeding and clot formation. Multiple clots again obtained and again placed on CBI. Currently draining pink. I had a conversation with Dr. Salguero again concerning this patient. Our concern at this point is, that if we can get him to the operating room and declot the bladder and find the bleeding etiology, perhaps a neoplastic or even a nonneoplastic process which is currently bleeding, the possibility of needing to stop his Brilinta is present in order to get him through the postoperative period. This would carry with it a significant increased risk of clotting off his coronary stent. I feel that the patient's current status warrants tertiary care center evaluation, treatment and close monitoring with the availability of specialists we do not currently have available here at [facility] continuously. I discussed this extensively with the patient. Although disappointed, he understands the predicament. I would recommend tertiary care transfer after discussing all this with Dr. Salguero from internal medicine/hospitalist service. Extracted from: Title:ED Note Author:Abdulkadir Villatoro, Keith Correa te:08/26/22 1. Urinary retention (R33.9: Retention of urine, unspecified) 2. Gross hematuria (R31.0: Gross hematuria) 3. Urinary tract infection (N39.0: Urinary tract infection, site not specified) Orders: ceftriaxone + Sodium Chloride 0.9% intravenous solution 50 mL, 1,000 mg = 1 EA, IV Piggyback, Once, Stop date 08/26/22 19:18:00 EDT, STAT, Start date 08/26/22 19:18:00 EDT, 100 mL/hr, Infuse over 30 minute(s), 08/26/22 19:18:00 EDT Sodium Chloride 0.9% intravenous solution, Soln-IV, Misc, Once, Stop date 08/26/22 18:33:53 EDT, Physician Stop, 08/26/22 18:33:53 EDT Automated Diff Basic Metabolic Panel Bladder Scan CBC w/ Auto Diff eGFR PT & PTT Urinary Catheter Insertion Future Appointments Appointment Date:11/02/2022 08:30:00 AM Scheduled Provider:Shanna IVORY MD Location:[facility] Appointment Type:URO Office Visit [facility]07-05-2023 Hospital Discharge instructions Additional Instructions DISCHARGE INSTRUCTIONS FOR ANGIOPLASTY/CORONARY/PERIPHERAL/STENT IMPLANT FOR ADULT ANTICOAGULATION -Since the greatest risk of a blood clot forming with the stent occurs in the first 2-3 weeks after implantation, you will need to take anticoagulants for at least 12-18 months. ANTICOAGULATION MEDICATION Aspirin 81mg once a day, Ticagrelor (Brilinta) 90mg twice a day STATIN MEDICATION Atorvastatin (Lipitor) 80 mg Drug-Eluting Stent (JUHI) DO NOT discontinue Brilinta/Aspirin during the first few months regardless of what you are advised by your family doctor or pharmacist, without first calling the card setter who implanted the stent. If you require pain relief during this time, please take only ACETAMINOPHEN (TYLENOL)- NO additional aspirin or ibuprofen. DISCHARGE ACTIVITIES ARE FOLLOWS: First week after discharge: -Take it easy at home, no strenuous activity. -Do not lift or pull objects over 10-15 pounds, including children, and groceries for four weeks. If puncture site is at wrist do NOT lift more than three pounds for three days. - May walk up stairs. -May shower. -No excessive scrubbing of the affected site (groin). -May ride in car. -May resume sexual intercourse after 1-2 weeks. -No MRI for 12 days. -May drive in 4-7 days. -If puncture site is at the wrist do not manipulate the wrist for 24 hours, and no soaking wrist for three days. Second Week: -May take a bath -May start walking 3 times a week for 15-20 minutes at a leisurely pace. You should be able to carry on a conversation comfortably without feeling winded. -No strenuous activity as in jogging, running, weight lifting, stair steppers, etc. until the card setter approves these activities. Check with the card setter on your first follow-up visit. CALL YOUR PHYSICIAN at [phone]: -If bleeding should occur from the catheter insertion site- apply pressure to the site then immediately call us. -Report any fever, redness, drainage, increased swelling, or firmness at the catheter insertion site. Some bruising or slight swelling may be present at the time of discharge. -Should arm or leg become cold, numb, white, or blue, contact the card setter immediately. -IF you should experience episodes of angina, e.g. chest discomfort, heaviness, tightness, pressure burning with or without radiation to the neck, jaw, arms or back- use 1 Nitrostat tablet under your tongue every 5-10 minutes and up to three tablets. IF NO RELIEF, CALL 911 or GO TO THE NEAREST EMERGENCY ROOM. -Please notify our office if you have recurrent angina. -[Cardiac Rehab Education Provided. Participation in the Cardiopulmonary Rehabilitation program is recommended. Please call Central Scheduling at [phone] to schedule your appointment.] The attending card setter or [facility] nurse clinician should provide you with specific instructions regarding activity, diet, medications, and further follow up for you. Follow the medication instructions provided on your discharge. If the dosages and instructions on this sheet differ from the dosage and instructions on the bottle, follow the instructions on the bottle. [facility] is not responsible for incorrect prescription information provided by the patient during their visit. Do not stop your medications without consulting your health care provider. Please take the list with you to your next doctor's appointment.[facility] Work Phone: 1([phone]) 539-975507-04-2023 Consult note Author Juanito Barney [facility] August 21, 2022 11:41am Note Date/Time August 21, 2022 11:41 am [facility] [address] [place] [address] Pulmonology Consult Note Signed Patient: Olaf Briones MR#: [id number] : 1945 Acct:[id number] Age/Sex: 77 / M Adm Date: 3 Loc: Room: [address] [place] [address] Type: REG SCC Attending Dr: Steven Zamora DO Copies to: NON STAFF MD Steven Lerma, ~ HPI Date/Time of Consultation: Date of Service: 08/21/2022 Time of Service: 11:36 Consulting Provider: Juanito Barney Requesting Provider: Steven Zamora Reason for Consult: Critical care management History of Present Illness History of present illness: Mr. Briones is a 77 year old male who was diagnosed with diabetes however he has not been taking medications for it , and has history of high blood pressure was admitted through the emergency room yesterday with new onset severe chest pain and near syncope. ECG in emergency room showed complete heart block along with ST elevation in the inferior lateral leads. Receiving Dock Checker was activated, patient received PCI to RCA. Heart block resolved following intervention. No events overnight. This morning, patient awake and interactive, feels better, on room air. Review of Systems Review of Systems Review of systems: No chest pain, shortness of breath, dizziness, presyncope, abdominal pain, nausea or vomiting. Review of systems negative otherwise l PMFSH Vaccinated for COVID-19?: Yes Medical History HTN (hypertension) Hypercholesteremia Kidney stones Surgical History Hx of heart artery stent 08/20/22 Social History Smoking Status: Never smoker Substance Use Type: None Meds Medications and Allergies Allergies albuterol Allergy (Verified 08/20/22 16:29) Headache hydrochlorothiazide Allergy (Verified 08/20/22 16:29) Rash adhesive tape Adverse Reaction (Verified 08/21/22 07:05) Rash Home Medications allopurinol 300 mg tablet 300 mg PO DAILY 08/20/22 [History Confirmed 08/20/22] amlodipine 5 mg tablet 5 mg PO DAILY 08/20/22 [History Confirmed 08/20/22] diclofenac sodium 75 mg tablet,delayed release 75 mg PO BID 08/20/22 [History Confirmed 08/20/22] metoprolol tartrate 25 mg tablet 25 mg PO DAILY 08/20/22 [History Confirmed 08/20/22] rosuvastatin 20 mg tablet 20 mg PO DAILY 08/20/22 [History Confirmed 08/20/22] Exam Physical Exam Vital Signs: Temp Pulse Resp BP Pulse Ox O2 Del Method 98.2 F 74 22 125/67 97 Room Air 08/21/22 08:00 08/21/22 10:00 08/21/22 10:00 08/21/22 10:00 08/21/22 10:00 08/21/22 10:00 Narrative: [employer] MOTHER: Alert and oriented x3. No focal deficits. Eyes: Pupils equal and reactive. Neck with no JVD or carotid bruit Cardiovascular exam revealed regular rate and rhythm, S1/2 normal. No gallop. Respiratory:Normal work of breathing, breath sounds symmetric, no adventurous breath sounds. GI: Abdomen soft nondistended nontender. Bowel sounds present. Musculoskeletal: No clubbing, no deformity. Lower extremities: No edema Skin: No rash Results Intake and Output I&O - Last 24 Hours: Intake & Output 08/20/22 08/21/22 08/21/22 23:59 07:59 15:59 Intake Total 250 / 250 200 / 200 Output Total 1300 / 1300 800 / 800 Balance -1050 / -1050 -600 / -600 Weight 81.5 kg 81.4 kg Labs 08/21/22 05:30 08/21/22 05:30 Assessment/Plan (1) ST elevation (STEMI) myocardial infarction: (2) Syncope: (3) Heart block: Plan 77-year-old male with history of diabetes, untreated, history of hypertension presented to emergency room with severe chest pain and presyncopal episode. He was found to have inferior lateral ST elevation VT along with complete heart block. Receiving Dock Checker was activated, patient received PCI to RCA. Patient is currently doing much better with no signs or symptoms of heart block,he is on room air. Optimizing cardiac meds as per cardiology. Glycemic control DVT prophylaxis Discussed with nursing staff Documented By: Juanito Barney MD 08/21/22 113 6 Signed By: <Electronically signed by Juanito Barney MD> 08/21/22 1141 [facility] Work Phone: 1(642) 944-887807-04-2023 Progress note Author Elpidio Andres [facility] August 21, 2022 8:11am Note Date/Time August 21, 2022 8:11a m [facility] [address] [place] [address] Cardiology Progress Note Signed Patient: Olaf Briones MR#: [id number] : 1945 Acct:[id number] Age/Sex: 77 / M Adm Date: 3 Loc: Room: [address] [place] [address] Type: REG SDC Attending Dr: Steven Zamora DO Copies to: ~ Date of Service: 08/21/2022 Subjective Principal diagnosis: Acute inferolateral STEMI status post primary PCI to RCA Interval history: Mr. Briones is doing well this morning. No residual chest pain or other anginal symptoms. Cardiac rhythm has been normal sinus on telemetry monitoring. No evidence of recurrent heart block since primary PCI. No problems at right groinsite. Some pink-tinged urine but the patient does note he has a history of nephrolithiasis and this is not unusual for him. No other complaints or issues presently. The patient has not yet ambulated. Exam Physical Exam Vital Signs: Temp Pulse Resp BP Pulse Ox O2 Del Method 97.4 F L 62 20 146/76 H 98 Room Air 08/21/22 00:00 08/21/22 07:00 08/21/22 07:00 08/21/22 07:00 08/21/22 07:00 08/21/22 07:00 Resp Effort & Inspection: normal respiratory effort, able to speak in complete sentences and symmetric chest movement Auscultation: clear to auscultation bilaterally Cardio Jugular venous pressure: no JVD Palpation: normal PMI Rate: regular rate Rhythm: regular rhythm Heart Sounds: S1 normal, S2 normal and gallop S4 gallop Pulses: femoral pulses present Other: Right groin site without bruit or hematoma 2+ pulse Objective Labs 08/21/22 05:30 08/21/22 05:30 Labs: Laboratory Results - last 24 hr 08/20/22 08/20/22 08/20/22 16:27 16:27 16:27 Corrected WBC 10.7 H Uncorrected WBC Count 10.7 H RBC 4.71 Hgb 15.1 Hct 44.0 MCV 93.4 MCH 32.1 MCHC 34.4 RDW 13.6 Plt Count 215 MPV 9.7 Neut % (Auto) 64.1 Lymph % (Auto) 26.2 [place] % (Auto) 7.9 Eos % (Auto) 1.3 Baso % (Auto) 0.5 Nucleat RBC Rel Count 0.1 Neut # (Auto) 6.9 Lymph # (Auto) 2.8 [place] # (Auto) 0.9 H Eos # (Auto) 0.1 Baso # (Auto) 0.1 Monocyte Dist Width 16.35 PT 11.4 INR 1.0 APTT 25.1 PHA Creatinine Clear 65.05 Sodium 140 Potassium 3.4 L Chloride 105 Carbon Dioxide 24.3 Anion Gap 14.1 BUN 15 Creatinine 0.92 Est GFR (CKD-EPI) > 60.0 Glucose 172 H Calcium 9.4 Total Creatine Kinase Troponin I High Sens B-Natriuretic Peptide Triglycerides Cholesterol LDL Cholesterol, Calc VLDL Cholesterol HDL Cholesterol Cholesterol/HDL Ratio 08/20/22 08/20/22 08/20/22 16:27 16:27 19:09 Corrected WBC Uncorrected WBC Count RBC Hgb Hct MCV MCH MCHC RDW Plt Count MPV Neut % (Auto) Lymph % (Auto) [place] % (Auto) Eos % (Auto) Baso % (Auto) Nucleat RBC Rel Count Neut # (Auto) Lymph # (Auto) [place] # (Auto) Eos # (Auto) Baso # (Auto) Monocyte Dist Width PT INR APTT PHA Creatinine Clear Sodium Potassium Chloride Carbon Dioxide Anion Gap BUN Creatinine Est GFR (CKD-EPI) Glucose Calcium Total Creatine Kinase 115 Troponin I High Sens 366.3 H* 2529.3 H* B-Natriuretic Peptide 24.0 Triglycerides Cholesterol LDL Cholesterol, Calc VLDL Cholesterol HDL Cholesterol Cholesterol/HDL Ratio 08/20/22 08/21/22 08/21/22 21:57 00:13 03:17 Corrected WBC Uncorrected WBC Count RBC Hgb Hct MCV MCH MCHC RDW Plt Count MPV Neut % (Auto) Lymph % (Auto) [place] % (Auto) Eos % (Auto) Baso % (Auto) Nucleat RBC Rel Count Neut # (Auto) Lymph # (Auto) [place] # (Auto) Eos # (Auto) Baso # (Auto) Monocyte Dist Width PT INR APTT PHA Creatinine Clear Sodium Potassium Chloride Carbon Dioxide Anion Gap BUN Creatinine Est GFR (CKD-EPI) Glucose Calcium Total Creatine Kinase Troponin I High Sens 9010.4 H* 28640.3 H* 48236.9 H* B-Natriuretic Peptide Triglycerides Cholesterol LDL Cholesterol, Calc VLDL Cholesterol HDL Cholesterol Cholesterol/HDL Ratio 08/21/22 08/21/22 08/21/22 05:30 05:30 05:30 Corrected WBC 13.6 H Uncorrected WBC Count 13.6 H RBC 4.66 Hgb 14.6 Hct 42.7 MCV 91.6 MCH 31.4 MCHC 34.3 RDW 13.5 Plt Count 171 MPV 9.5 Neut % (Auto) 85.4 Lymph % (Auto) 8.2 [place] % (Auto) 6.1 Eos % (Auto) 0.1 Baso % (Auto) 0.2 Nucleat RBC Rel Count 0.0 Neut # (Auto) 11.7 H Lymph # (Auto) 1.1 [place] # (Auto) 0.8 Eos # (Auto) 0.0 Baso # (Auto) 0.0 Monocyte Dist Width PT INR APTT PHA Creatinine Clear 74.81 Sodium 138 Potassium 3.8 Chloride 103 Carbon Dioxide 27.1 Anion Gap 11.7 BUN 12 Creatinine 0.71 Est GFR (CKD-EPI) > 60.0 Glucose 162 H Calcium 9.4 Total Creatine Kinase Troponin I High Sens 29769.9 H* B-Natriuretic Peptide Triglycerides 124 Cholesterol 132 L LDL Cholesterol, Calc 62 VLDL Cholesterol 24 HDL Cholesterol 45 Cholesterol/HDL Ratio 2.9 A&P - Cardiology (1) ST elevation (STEMI) myocardial infarction: Assessment/Problem Details: Patient doing well on postprocedure day #1 status post primary PCI with drug- eluting stent placement to the dominant right coronary artery in the setting of acute inferolateral STEMI. CCS 0. Patient clinically euvolemic and well compensated. Code(s): I21.3 - ST elevation (STEMI) myocardial infarction of unspecified site Status: Acute Plan: 1. Maintain dual antiplatelet therapy with aspirin and ticagrelor 2. Maintain current medical therapy for recovery of LV systolic function 3. We will ambulate today at least 3 times daily 4. Pending a favorable clinical evolution today [facility] (2) Heart block: Assessment/Problem Details: Resolved with islam of flow to the dominant right coronary artery with primary PCI and drug-eluting stent placement. Code(s): I45.9 - Conduction disorder, unspecified Status: Acute Plan Plan as above. Disposition to home likely 24 hours. Phase 2 monitor cardiac rehabilitation is strongly recommended. Time spent with patient Time Spent With Patient (min): 20 Documented By: Elpidio Andres MD 08/21/22 0807 Signed By: <Electronically signed by Elpdiio Andres MD> 08/21/22 0811 [facility] Work Phone: 1(625) 297-867507-03-2023 History and physical note Author Steven Zamora [facility] August 20, 2022 6:29pm Note Date/Time August 20, 2022 6:24p m [facility] [address] [place] [address] Cardiology H&P Signed with Addenda Patient: Olaf Briones MR#: [id number] : 1945 Acct:[id number] Age/Sex: 77 / M Adm Date: 3 Loc: Room: [address] [place] [address] Type: REG SDC Attending Dr: Steven Zamora DO Copies to: NON STAFF Steven Zamora DO~ ADDENDUM1 Impression: Inferolateral STEMI with change in complete heart block Plan: Proceed with emergent cath and PCI. A total of 60 minutes nonprocedural critical care time were devoted to the ER staff, review of ECG, Receiving Dock Checker staff, nursing staff, both patient and family both pre and post procedurally Addendum Documented By: Steven Zamora DO 08/20/221828 Addendum Signed By: <Electronically signed by Steven Zamora DO> 08/20/221828 Date of Service: 08/20/2022 Cardiology HPI History of Present Illness Chief complaint: Inferolateral STEMI HPI: Mr. Briones is a 77 year old male admitted through the emergency room with new onset severe angina and near syncope, initial ECG revealed complete heart block and inferolateral ST elevation from the squad. Upon arrival at 1621-second ECG (first ECG in the ER) revealed similar inferior lateral STEMI criteria and transient complete heart block. Discussed case with ER attending, reviewed ECGs; Receiving Dock Checker team activated, half amp of atropine ordered in addition to routine upstream antiplatelet and Antithrombin therapies. Patient arrived at the Receiving Dock Checker at 1659 underwent first balloon activation at 1724; 63 minutes doorto device time Review of Systems Review of Systems All other systems reviewed & are negative unless noted below or in HPI Constitutional Constitutional: Reports as per [facility] Eyes Eyes: Reports system reviewed and no additional complaints, except as documented ENT Ears, Nose, Mouth, and Throat: Reports system reviewed and no additional complaints, except as documented Cardiovascular Cardiovascular: Reports as per [facility], Reports chest pain at rest, Reports diaphoresis, Reports slow heart rate and Reports syncope Respiratory Respiratory: Reports system reviewed and no additional complaints, except as documented Gastrointestinal Gastrointestinal: Reports system reviewed and no additional complaints, except as documented Genitourinary Genitourinary: Reports system reviewed and no additional complaints, except as documented Musculoskeletal Musculoskeletal: Reports system reviewed and no additional complaints, except asdocumented Integumentary/Breasts Skin/Breast: Reports system reviewed and no additional complaints, except as documented Neurologic Neurologic: Reports system reviewed and no additional complaints, except as documented [facility] Medical History (Updated 08/20/22 @ 16:41 by Ariadne Solis RN) Gout HTN (hypertension) Hypercholesteremia Meds Medications and Allergies Allergies albuterol Allergy (Verified 08/20/22 16:29) Headache hydrochlorothiazide Allergy (Verified 08/20/22 16:29) Rash Exam Physical Exam Vital Signs: Temp Pulse Resp BP Pulse Ox O2 Del Method 97.6 F 42 L 18 123/60 98 Room Air 08/20/22 16:25 08/20/22 17:13 08/20/22 16:38 08/20/22 16:38 08/20/22 16:38 08/20/22 16:38 Const General: cooperative, healthy appearing, well developed, well groomed and acute distress mild Nutritional Appearance: average body habitus Orientation: alert, awake and oriented x3 HEENT Head: normal to inspection Eyes General: appearance normal, both eyes and all related structures Neck Neck: normal visual inspection Chest Chest palpation & inspection: normal inspection of the chest Resp Effort & Inspection: normal respiratory effort Auscultation: clear to auscultation bilaterally Cardio Palpation: normal PMI Rate: regular rate Rhythm: regular rhythm Heart Sounds: S1 normal and S2 normal Pulses: radial pulses present and femoral pulses present GI Inspection: normal to inspection Palpation: soft Skin General: no rashes or lesions noted Neuro General: patient alert, patient awake and patient oriented x3 Cognition: normal cognition Speech: speech normal Extrem General: no clubbing, cyanosis or edema LIN Risk Score LIN Risk Score Predictor Historical: Age > 65 Years Old and ASA use in Past 7 Days Presentation: Recent (>/=24hr) Angina, Increased Cardiac Marker and ST Deviation>/=0.05mV Score Risk Score (0-7): 5 Results: 5 Results Labs 08/20/22 16:27 08/20/22 16:27 Lab results: Cardiac Enzymes 08/20/22 08/20/22 Range/Units 16:27 16:27 Total Creatine Kinase 115 (30-223) U/L B-Natriuretic Peptide 24.0 (5-100) pg/mL CBC 08/20/22 Range/Units 16:27 RBC 4.71 (3.90-5.60) X10E6/uL Hgb 15.1 (13.0-17.0) g/dL Hct 44.0 (38.8-50.0) % Plt Count 215 (150-450) x10E3/uL Neut # (Auto) 6.9 (1.8-7.7) x10E3/uL Lymph # (Auto) 2.8 (1.00-4.8) x10E3/uL [place] # (Auto) 0.9 H (0.0-0.8) x10E3/uL Eos # (Auto) 0.1 (0.0-0.45) x10E3/uL Baso # (Auto) 0.1 (0.0-0.2) x10E3/uL Comprehensive Metabolic Panel 08/20/22 Range/Units 16:27 Sodium 140 (136-145) mmol/L Potassium 3.4 L (3.5-5.1) mmol/L Chloride 105 (98-107) mmol/L Carbon Dioxide 24.3 (21.0-31.0) mmol/L BUN 15 (7-25) mg/dL Creatinine 0.92 (0.70-1.30) mg/dL Glucose 172 H (70-100) mg/dL Calcium 9.4 (8.6-10.3) mg/dL Intake and Output 08/20/22 08/20/22 08/20/22 07:59 15:59 23:59 Other: Weight 81.5 kg Patient Weight 08/20/22 23:59 Weight 81.5 kg Lab 08/20/22 16:27 PT 11.4 INR 1.0 APTT 25.1 Documented By: Steven Zamora DO 08/20/221819 Signed By: <Electronically signed by Steven Zamora DO> 08/20/221826 [facility] Work Phone: 1(167) 315-960107-03-2023 [facility] History general Narrative - Reported * Type Description Date Surgical History TURP 2022 Hospitalization History heart attack august 20 2022 [employer] Other 09-09-2022 Hospital Discharge instructions Patient Education 10/27/2021 09:26:04 Benign Prostatic Hyperplasia Benign Prostatic Hyperplasia Benign prostatic hyperplasia (BPH) is an enlarged prostate gland that is caused by the normal agingprocess and not by cancer. The prostate is a walnut-sized gland that is involved in the production of semen. It is located in front of the rectum and below the bladder. The bladder stores urine and the urethra is the tube that carries the urine out of the body. The prostate may get bigger as a man gets older. An enlarged prostate can press on the urethra. This can make it harder to pass urine. The build-up of urine in the bladder can cause infection. Back pressure and infection may progress to bladder damage and kidney (renal) failure. What are the causes? This condition is part of a normal aging process. However, not all men develop problems from this condition. If the prostate enlarges away from the urethra, urine flow will not be blocked. If it enlarges toward the urethra and compresses it, there will be problems passing urine. What increases the risk? This condition is more likely to develop in men over the age of 50 years. What are the signs or symptoms? Symptoms of this condition include: Getting up often during the night to urinate. Needing to urinate frequently during the day. Difficulty starting urine flow. Decrease in size and strength of your urine stream. Leaking (dribbling) after urinating. Inability to pass urine. This needs immediate treatment. Inability to completely empty your bladder. Pain when you pass urine. This is more common if there is also an infection. Urinary tract infection (UTI). How is this diagnosed? This condition is diagnosed based on your medical history, a physical exam, and your symptoms. Tests will also be done, such as: A post-void bladder scan. This measures any amount of urine that may remain in your bladder after you finish urinating. A digital rectal exam. In a rectal exam, your health care provider checks your prostate by putting a lubricated, gloved finger into your rectum to feel the back of your prostate gland. This exam detects the size of your gland and any abnormal lumps or growths. An exam of your urine (urinalysis). A prostate specific antigen (PSA) screening. This is a blood test used to screen for prostate cancer. An ultrasound. This test uses sound waves to electronically produce a picture of your prostate gland. Your health care provider may refer you to a specialist in kidney and prostate diseases (urologist). How is this treated? Once symptoms begin, your health care provider will monitor your condition (active surveillance or watchful waiting). Treatment for this condition will depend on the severity of your condition. Treatment may include: Observation and yearly exams. This may be the only treatment needed if your condition and symptoms are mild. Medicines to relieve your symptoms, including: ?Medicines to shrink the prostate. ?Medicines to relax the muscle of the prostate. Surgery in severe cases. Surgery may include: ?Prostatectomy. In this procedure, the prostate tissue is removed completely through an open incision or with a laparoscope or robotics. ?Transurethral resection of the prostate (TURP). In this procedure, a tool is inserted through the opening at the tip of the penis (urethra). It is used to cut away tissue of the inner core of the prostate. The pieces are removed through the same opening of the penis. This removes the blockage. ?Transurethral incision (TUIP). In this procedure, small cuts are made in the prostate. This lessens the prostate's pressure on the urethra. ?Transurethral microwave thermotherapy (TUMT). This procedure uses microwaves to create heat. The heat destroys and removes a small amount of prostate tissue. ?Transurethral needle ablation (TUNA). This procedure uses radio frequencies to destroy and remove a small amount of prostate tissue. ?Interstitial laser coagulation (ILC). This procedure uses a laser to destroy and remove a small amount of prostate tissue. ?Transurethral electrovaporization (TUVP). This procedure uses electrodes to destroy and remove a small amount of prostate tissue. ?Prostatic urethral lift. This procedure inserts an implant to push the lobes of the prostate away from the urethra. Follow these instructions at home: Take [id number]-lqbbyld and prescription medicines only as told by your health care provider. Monitor your symptoms for any changes. Contact your health care provider with any changes. Avoid drinking large amounts of liquid before going to bed or out in public. Avoid or reduce how much caffeine or alcohol you drink. Give yourself time when you urinate. Keep all follow-up visits as told by your health care provider. This is important. Contact a health care provider if: You have unexplained back pain. Your symptoms do not get better with treatment. You develop side effects from the medicine you are taking. Your urine becomes very dark or has a bad smell. Your lower abdomen becomes distended and you have trouble passing your urine. Get help right away if: You have a fever or chills. You suddenly cannot urinate. You feel lightheaded, or very dizzy, or you faint. There are large amounts of blood or clots in the urine. Your urinary problems become hard to manage. You develop moderate to severe low back or flank pain. The flank is the side of your body between the ribs and the hip. These symptoms may represent a serious problem that is an emergency. Do not wait to see if the symptoms will go away. Get medical help right away. Call your local emergency services (911 in the [place] Do not drive yourself to the hospital. Summary Benign prostatic hyperplasia (BPH) is an enlarged prostate that is caused by the normal aging process and not by cancer. An enlarged prostate can press on the urethra. This can make it hard to pass urine. This condition is part of a normal aging process and is more likely to develop in men over the age of 50 years. Get help right away if you suddenly cannot urinate. This information is not intended to replace advice given to you by your health care provider. Make sure you discuss any questions you have with your health care provider. Document Released: 02/04/2006 Document Revised: 12/30/2018 Document Reviewed: 03/11/2017 [employer] Patient Education 2020 [employer] Follow Up Care 10/21/2020 08:48:14 With:CACHORRO HAHN, Shanna Sánchez, URL Address: [address] [place] [address]- When: Unknown [facility] Franca consult note Author Juanito Barney [facility] August 21, 2022 11:41am Note Date/Time August 21, 2022 11:41 am [facility] [address] [place] [address] Pulmonology Consult Note Signed Patient: Olaf Briones MR#: [id number] : 1945 Acct:[id number] Age/Sex: 77 / M Adm Date: 3 Loc: Room: [address] [place] [address] Type: REG SDC Attending Dr: Steven Zamora DO Copies to: NON STAFF MD Steven Lerma, ~ HPI Date/Time of Consultation: Date of Service: 08/21/2022 Time of Service: 11:36 Consulting Provider: Juanito Barney Requesting Provider: Steven Zamora Reason for Consult: Critical care management History of Present Illness History of present illness: Mr. Briones is a 77 year old male who was diagnosed with diabetes however he has not been taking medications for it , and has history of high blood pressure was admitted through the emergency room yesterday with new onset severe chest pain and near syncope. ECG in emergency room showed complete heart block along with ST elevation in the inferior lateral leads. Receiving Dock Checker was activated, patient received PCI to RCA. Heart block resolved following intervention. No events overnight. This morning, patient awake and interactive, feels better, on room air. Review of Systems Review of Systems Review of systems: No chest pain, shortness of breath, dizziness, presyncope, abdominal pain, nausea or vomiting. Review of systems negative otherwise l PMFSH Vaccinated for COVID-19?: Yes Medical History HTN (hypertension) Hypercholesteremia Kidney stones Surgical History Hx of heart artery stent 08/20/22 Social History Smoking Status: Never smoker Substance Use Type: None Meds Medications and Allergies Allergies albuterol Allergy (Verified 08/20/22 16:29) Headache hydrochlorothiazide Allergy (Verified 08/20/22 16:29) Rash adhesive tape Adverse Reaction (Verified 08/21/22 07:05) Rash Home Medications allopurinol 300 mg tablet 300 mg PO DAILY 08/20/22 [History Confirmed 08/20/22] amlodipine 5 mg tablet 5 mg PO DAILY 08/20/22 [History Confirmed 08/20/22] diclofenac sodium 75 mg tablet,delayed release 75 mg PO BID 08/20/22 [History Confirmed 08/20/22] metoprolol tartrate 25 mg tablet 25 mg PO DAILY 08/20/22 [History Confirmed 08/20/22] rosuvastatin 20 mg tablet 20 mg PO DAILY 08/20/22 [History Confirmed 08/20/22] Exam Physical Exam Vital Signs: Temp Pulse Resp BP Pulse Ox O2 Del Method 98.2 F 74 22 125/67 97 Room Air 08/21/22 08:00 08/21/22 10:00 08/21/22 10:00 08/21/22 10:00 08/21/22 10:00 08/21/22 10:00 Narrative: [employer] MOTHER: Alert and oriented x3. No focal deficits. Eyes: Pupils equal and reactive. Neck with no JVD or carotid bruit Cardiovascular exam revealed regular rate and rhythm, S1/2 normal. No gallop. Respiratory:Normal work of breathing, breath sounds symmetric, no adventurous breath sounds. GI: Abdomen soft nondistended nontender. Bowel sounds present. Musculoskeletal: No clubbing, no deformity. Lower extremities: No edema Skin: No rash Results Intake and Output I&O - Last 24 Hours: Intake & Output 08/20/22 08/21/22 08/21/22 23:59 07:59 15:59 Intake Total 250 / 250 200 / 200 Output Total 1300 / 1300 800 / 800 Balance -1050 / -1050 -600 / -600 Weight 81.5 kg 81.4 kg Labs 08/21/22 05:30 08/21/22 05:30 Assessment/Plan (1) ST elevation (STEMI) myocardial infarction: (2) Syncope: (3) Heart block: Plan 77-year-old male with history of diabetes, untreated, history of hypertension presented to emergency room with severe chest pain and presyncopal episode. He was found to have inferior lateral ST elevation VT along with complete heart block. Receiving Dock Checker was activated, patient received PCI to RCA. Patient is currently doing much better with no signs or symptoms of heart block,he is on room air. Optimizing cardiac meds as per cardiology. Glycemic control DVT prophylaxis Discussed with nursing staff Documented By: Juanito Barney MD 08/21/22 113 6 Signed By: <Electronically signed by Juanito Barney MD> 08/21/22 1141 [facility] Work Phone: Discharge summary Author Steven Zamora [facility] August 22, 2022 3:21pm Note Date/Time August 22, 2022 3:17p m [facility] [address] [place] [address] Discharge Summary Signed Patient: Olaf Briones MR#: [id number] : 1945 Acct:[id number] Age/Sex: 77 / M Adm Date: 3 Loc: Room: [address] [place] [address]: Steven Zamora DO Copies to: NON STAFF Steven Zamora DO~ Providers Date of Discharge: 08/22/22 Discharging Provider: Steven Zamora Primary Care Provider: NON STAFF Consults: 08/20/22 19:05 Consult to Pulmonology Routine Consult to Cardiac Rehabilitation Routine Discharge Diagnosis (1) ST elevation (STEMI) myocardial infarction: (2) Syncope: (3) Heart block: Final Diagnosis Final Discharge Diagnosis: 1. Inferior STEMI 2. Primary PCI ostial/proximal RCA 3. Residual mild to moderate LAD disease 4. Normal left ventricular function 5. Transient AV block associated with presentation with syncope Summary Hospital Course Hospital course: 77-year-old gentleman presents with inferior STEMI August 20, 2022 with primary revascularization of the proximal RCA with 3 mm drug-eluting stent. LV functionis preserved by echo. Patient has residual 50 less than 70% disease throughout the mid and distal LAD, mild disease of the circumflex. Troponins peaked at 16,000 on August 21 and have trended downwards. Initial presentation was syncope and AV block with associated inferior ST elevation. There is ECGs of change shehas not had any further AV block. I personally reviewed the echocardiogram reveals normal left ventricular function He has been started on appropriate guideline directed medical therapies. His metoprolol has been discontinued in favor of low-dose carvedilol. He will follow-up with Dr. Ling in the next 2 to 4 weeks. 30 minutes of dischargeplanning, follow-up arrangements, discussion regarding residual LAD disease and further follow-up. We will hold off going back to his long cutting routine for at least 7 days and counseled him on appropriate hydration especially with the summer heat and humidity. I recommended cardiac rehab. Condition Condition at Discharge: Stable Status at Discharge Functional status at discharge: independent ambulation Overall status at discharge: patient is back to baseline Time Spent with Patient Time spent providing/coordinating discharge services (# min): 30 Surgeries and Procedures Operation Date: 08/20/22 17:30 Actual Procedures p CL LHC & COR Angio - W Steve Zamora DO p CL PCI AMI 1st Vessel RCA JUHI - W Steve Zamora DO s CL Closure Device Placement 0 - W Steve Zamora DO Complications Complications: None Diagnostic Studies Completed and Pending Studies Pending studies at discharge: 08/20/22 18:01 ECG 12 lead ECG Stat 08/23/22 05:00 ECG 12 lead ECG IN AM Basic Metabolic Panel [CHEM] IN AM Complete Blood Count Auto Diff IN AM 08/24/22 05:00 Basic Metabolic Panel [CHEM] IN AM Complete Blood Count Auto Diff IN AM 08/25/22 05:00 Basic Metabolic Panel [CHEM] IN AM Complete Blood Count Auto Diff IN AM Labs on day of discharge: 08/22/22 04:22: PHA Creatinine Clear 74.81, Sodium 138, Potassium 3.8, Chloride 105, Carbon Dioxide 26.0, Anion Gap 10.8, BUN 20, Creatinine 0.79, Est GFR (CKD-EPI) > 60.0, Glucose 133 H, Calcium 9.0 08/22/22 04:22: Corrected WBC 8.8, Uncorrected WBC Count 8.8, RBC 4.43, Hgb 13.9, Hct 41.1, MCV 92.8, MCH 31.5, MCHC 33.9, RDW 13.7, Plt Count 162, MPV 9.6, Neut % (Auto) 72.5, Lymph % (Auto) 15.9, [place] % (Auto) 9.7, Eos % (Auto) 1.6, Baso % (Auto) 0.3, Nucleat RBC Rel Count 0.1, Neut # (Auto) 6.4, Lymph # (Auto) 1.4, [place] # (Auto) 0.9 H, Eos # (Auto) 0.1, Baso # (Auto) 0.0 08/21/22 21:18: POC Glucose 121, POC Glucose Comment Glu2: cleaned meter 08/21/22 15:48: POC Glucose 137, POC Glucose Comment Glu2: cleaned meter Exam Physical Exam Vital Signs: Temp Pulse Resp BP Pulse Ox O2 Del Method 98.2 F 64 18 124/64 99 Room Air 08/22/22 12:00 08/22/22 12:00 08/22/22 12:00 08/22/22 12:00 08/22/22 12:00 08/22/22 12:00 Const General: cooperative, healthy appearing, well developed and well groomed Nutritional Appearance: average body habitus Orientation: alert, awake and oriented x3 HEENT Head: normal to inspection Eyes General: appearance normal, both eyes and all related structures Neck Neck: normal visual inspection Chest Chest palpation & inspection: normal inspection of the chest Resp Effort & Inspection: normal respiratory effort Auscultation: clear to auscultation bilaterally Cardio Palpation: normal PMI Rate: regular rate Rhythm: regular rhythm Heart Sounds: S1 normal and S2 normal Pulses: radial pulses present and femoral pulses present GI Inspection: normal to inspection Palpation: soft Skin General: no rashes or lesions noted Neuro General: patient alert, patient awake and patient oriented x3 Cognition: normal cognition Speech: speech normal Extrem General: no clubbing, cyanosis or edema Discharge Plan Discharge Plan Patient Disposition: Home Comment: NO LAWN MOWING for 7 days Diet: Low-Cholesterol Additional Instructions: DISCHARGE INSTRUCTIONS FOR ANGIOPLASTY/CORONARY/PERIPHERAL/STENT IMPLANT FOR ADULT ANTICOAGULATION -Since the greatest risk of a blood clot forming with the stent occurs in the first 2-3 weeks after implantation, you will need to take anticoagulants for at least 12-18 months. ANTICOAGULATION MEDICATION Aspirin 81mg once a day, Ticagrelor (Brilinta) 90mg twice a day STATIN MEDICATION Atorvastatin (Lipitor) 80 mg Drug-Eluting Stent (JUHI) DO NOT discontinue Brilinta/Aspirin during the first few months regardless of what you are advised by your family doctor or pharmacist, without first calling the card setter who implanted the stent. If you require pain relief during this time, please take only ACETAMINOPHEN (TYLENOL)- NO additional aspirin or ibuprofen. DISCHARGE ACTIVITIES ARE FOLLOWS: First week after discharge: -Take it easy at home, no strenuous activity. -Do not lift or pull objects over 10-15 pounds, including children, and groceries for four weeks. If puncture site is at wrist do NOT lift more than three pounds for three days. - May walk up stairs. -May shower. -No excessive scrubbing of the affected site (groin). -May ride in car. -May resume sexual intercourse after 1-2 weeks. -No MRI for 12 days. -May drive in 4-7 days. -If puncture site is at the wrist do not manipulate the wrist for 24 hours, and no soaking wrist for three days. Second Week: -May take a bath -May start walking 3 times a week for 15-20 minutes at a leisurely pace. You should be able to carry on a conversation comfortably without feeling winded. -No strenuous activity as in jogging, running, weight lifting, stair steppers, etc. until the card setter approves these activities. Check with the card setter on your first follow-up visit. CALL YOUR PHYSICIAN at [phone]: -If bleeding should occur from the catheter insertion site- apply pressure to the site then immediately call us. -Report any fever, redness, drainage, increased swelling, or firmness at the catheter insertion site. Some bruising or slight swelling may be present at the time of discharge. -Should arm or leg become cold, numb, white, or blue, contact the card setter immediately. -IF you should experience episodes of angina, e.g. chest discomfort, heaviness, tightness, pressure burning with or without radiation to the neck, jaw, arms or back- use 1 Nitrostat tablet under your tongue every 5-10 minutes and up to three tablets. IF NO RELIEF, CALL 911 or GO TO THE NEAREST EMERGENCY ROOM. -Please notify our office if you have recurrent angina. -[Cardiac Rehab Education Provided. Participation in the Cardiopulmonary Rehabilitation program is recommended. Please call Central Scheduling at [phone] to schedule your appointment.] The attending card setter or [facility] nurse clinician should provide you with specific instructions regarding activity, diet, medications, and further follow up for you. Follow the medication instructions provided on your discharge. If the dosages and instructions on this sheet differ from the dosage and instructions on the bottle, follow the instructions on the bottle. [facility] is not responsible for incorrect prescription information provided by thepatient during their visit. Do not stop your medications without consulting your health care provider. Please take the list with you to your next doctor's appointment. Instructions: Coronary Angioplasty (DC), Coronary Stenting (DC), Angina (DC), Chest Pain (DC), Drug Eluting Stents Prescriptions: New atorvastatin 80 mg Tablet 80 mg PO QPM 14 Days Qty: 14 0RF nitroglycerin 0.4 mg Tablet, Sublingual 0.4 mg sublingual Q5M PRN (Reason: Chest Pain) 30 Days Qty: 25 0RF lisinopril 2.5 mg Tablet 2.5 mg PO DAILY 14 Days Qty: 14 0RF Brilinta 90 mg Tablet 90 mg PO BID 90 Days Qty: 180 3RF aspirin 81 mg Tablet,Delayed Release (Dr/Ec) 81 mg PO DAILY 14 Days Qty: 14 0RF carvedilol 6.25 mg Tablet 6.25 mg PO BID.WITH.MEALS 14 Days Qty: 28 0RF Continued amlodipine 5 mg Tablet 5 mg PO DAILY diclofenac sodium 75 mg Tablet,Delayed Release (Dr/Ec) 75 mg PO BID allopurinol 300 mg Tablet 300 mg PO DAILY Discontinued rosuvastatin 20 mg Tablet 20 mg PO DAILY metoprolol tartrate 25 mg Tablet 25 mg PO DAILY Follow Up: Ashutosh Ling MD [Active Staff] - 09/05/22 12:50 pm NON STAFF, [Primary Care Provider] - 3-5 Days Documented By: Steven Zamora DO 08/22/22 1516 Signed By: <Electronically signed by Steven Zamora DO> 08/22/22 1521 [facility] Work Phone: Evaluation + Plan note Future Appointments Appointment Date:11/02/2022 08:30:00 AM Scheduled Provider:Shanna IVORY MD Location:[facility] Appointment Type:URO Office Visit [facility] evaluation note* Diagnosis Onset Date Resolution Status Heart block acute ST elevation (STEMI) myocardial infarction acute Syncope acute [facility] Work Phone: Evaluation note* Diagnosis Arteriosclerotic cardiovascular disease- Primary Unspecified cardiovascular disease Abnormal EKG Nonspecific abnormal electrocardiogram (ECG) (EKG) Mixed hyperlipidemia Primary hypertension Unspecified essential hypertension Post PTCA Postsurgical percutaneous transluminal coronary angioplasty status Essential hypertension Unspecified essential hypertension BMI 26.0-26.9,adult Easy bruisability Other symptoms involving skin and integumentary tissues documented in this encounter [facility] Work Phone: History and physical note Author Steven Zamora [facility] August 20, 2022 6:29pm Note Date/Time August 20, 2022 6:24p m [facility] [address] [place] [address] Cardiology H&P Signed with Addenda Patient: Olaf Briones MR#: [id number] : 1945 Acct:[id number] Age/Sex: 77 / M Adm Date: 3 Loc: Room: [address] [place] [address] Type: REG SDC Attending Dr: Steven Zamora DO Copies to: NON STAFF Steven Zamora DO~ ADDENDUM1 Impression: Inferolateral STEMI with change in complete heart block Plan: Proceed with emergent cath and PCI. A total of 60 minutes nonprocedural critical care time were devoted to the ER staff, review of ECG, Receiving Dock Checker staff, nursing staff, both patient and family both pre and post procedurally Addendum Documented By: Steven Zamora DO 08/20/221828 Addendum Signed By: <Electronically signed by Steven Zamora DO> 08/20/221828 Date of Service: 08/20/2022 Cardiology HPI History of Present Illness Chief complaint: Inferolateral STEMI HPI: Mr. Briones is a 77 year old male admitted through the emergency room with new onset severe angina and near syncope, initial ECG revealed complete heart block and inferolateral ST elevation from the squad. Upon arrival at 1621-second ECG (first ECG in the ER) revealed similar inferior lateral STEMI criteria and transient complete heart block. Discussed case with ER attending, reviewed ECGs; Receiving Dock Checker team activated, half amp of atropine ordered in addition to routine upstream antiplatelet and Antithrombin therapies. Patient arrived at the Receiving [facility]er at 1659 underwent first balloon activation at 1724; 63 minutes doorto device time Review of Systems Review of Systems All other systems reviewed & are negative unless noted below or in HPI Constitutional Constitutional: Reports as per HPI Eyes Eyes: Reports system reviewed and no additional complaints, except as documented ENT Ears, Nose, Mouth, and Throat: Reports system reviewed and no additional complaints, except as documented Cardiovascular Cardiovascular: Reports as per HPI, Reports chest pain at rest, Reports diaphoresis, Reports slow heart rate and Reports syncope Respiratory Respiratory: Reports system reviewed and no additional complaints, except as documented Gastrointestinal Gastrointestinal: Reports system reviewed and no additional complaints, except as documented Genitourinary Genitourinary: Reports system reviewed and no additional complaints, except as documented Musculoskeletal Musculoskeletal: Reports system reviewed and no additional complaints, except asdocumented Integumentary/Breasts Skin/Breast: Reports system reviewed and no additional complaints, except as documented Neurologic Neurologic: Reports system reviewed and no additional complaints, except as documented [facility] Medical History (Updated 08/20/22 @ 16:41 by Ariadne Solis RN) Gout HTN (hypertension) Hypercholesteremia Meds Medications and Allergies Allergies albuterol Allergy (Verified 08/20/22 16:29) Headache hydrochlorothiazide Allergy (Verified 08/20/22 16:29) Rash Exam Physical Exam Vital Signs: Temp Pulse Resp BP Pulse Ox O2 Del Method 97.6 F 42 L 18 123/60 98 Room Air 08/20/22 16:25 08/20/22 17:13 08/20/22 16:38 08/20/22 16:38 08/20/22 16:38 08/20/22 16:38 Const General: cooperative, healthy appearing, well developed, well groomed and acute distress mild Nutritional Appearance: average body habitus Orientation: alert, awake and oriented x3 HEENT Head: normal to inspection Eyes General: appearance normal, both eyes and all related structures Neck Neck: normal visual inspection Chest Chest palpation & inspection: normal inspection of the chest Resp Effort & Inspection: normal respiratory effort Auscultation: clear to auscultation bilaterally Cardio Palpation: normal PMI Rate: regular rate Rhythm: regular rhythm Heart Sounds: S1 normal and S2 normal Pulses: radial pulses present and femoral pulses present GI Inspection: normal to inspection Palpation: soft Skin General: no rashes or lesions noted Neuro General: patient alert, patient awake and patient oriented x3 Cognition: normal cognition Speech: speech normal Extrem General: no clubbing, cyanosis or edema LIN Risk Score LIN Risk Score Predictor Historical: Age > 65 Years Old and ASA use in Past 7 Days Presentation: Recent (>/=24hr) Angina, Increased Cardiac Marker and ST Deviation>/=0.05mV Score Risk Score (0-7): 5 Results: 5 Results Labs 08/20/22 16:27 08/20/22 16:27 Lab results: Cardiac Enzymes 08/20/22 08/20/22 Range/Units 16:27 16:27 Total Creatine Kinase 115 (30-223) U/L B-Natriuretic Peptide 24.0 (5-100) pg/mL CBC 08/20/22 Range/Units 16:27 RBC 4.71 (3.90-5.60) X10E6/uL Hgb 15.1 (13.0-17.0) g/dL Hct 44.0 (38.8-50.0) % Plt Count 215 (150-450) x10E3/uL Neut # (Auto) 6.9 (1.8-7.7) x10E3/uL Lymph # (Auto) 2.8 (1.00-4.8) x10E3/uL [place] # (Auto) 0.9 H (0.0-0.8) x10E3/uL Eos # (Auto) 0.1 (0.0-0.45) x10E3/uL Baso # (Auto) 0.1 (0.0-0.2) x10E3/uL Comprehensive Metabolic Panel 08/20/22 Range/Units 16:27 Sodium 140 (136-145) mmol/L Potassium 3.4 L (3.5-5.1) mmol/L Chloride 105 (98-107) mmol/L Carbon Dioxide 24.3 (21.0-31.0) mmol/L BUN 15 (7-25) mg/dL Creatinine 0.92 (0.70-1.30) mg/dL Glucose 172 H (70-100) mg/dL Calcium 9.4 (8.6-10.3) mg/dL Intake and Output 08/20/22 08/20/22 08/20/22 07:59 15:59 23:59 Other: Weight 81.5 kg Patient Weight 08/20/22 23:59 Weight 81.5 kg Lab 08/20/22 16:27 PT 11.4 INR 1.0 APTT 25.1 Documented By: Steven Zamora DO 08/20/221819 Signed By: <Electronically signed by Steven Zamora DO> 08/20/221826 [facility] Work Phone: History of Present illness Narrative* Patient is here for follow-up for recent evaluation for symptoms of dizziness, abnormal stress testand hypertension. Since last time I saw him he reported his been feeling well. He denies any complaint of chest pain, palpitation, lightheadedness, dizziness or syncope. His recent cardiac work-up was noted and reviewed with him. Recent event monitor failed to demonstrate any significant arrhythmia. * Assessment * 1. Few prior episodes of intermittent dizziness I suspect due to transient hypotension. Patient denies any recurrence * 2. Borderline abnormal stress test. I suspect his nuclear images are related to attenuation. The patient describe functional class I. He denies any chest pain and he is completely asymptomatic. He was started recently on low-dose beta-reynaldo * 3. Hypertension controlled * 4. Hyperlipidemia * 5. Borderline abnormal EKG * 6. Borderline overweight * Plan * 1. Considering patient is completely asymptomatic I recommended for the time being continuation with observant approach. And advised him to continue low- dose aspirin and a beta-reynaldo * 2. We discussed conservative versus invasive evaluation and I suggested for the time being based onthe size of the defect and lack of symptoms that medical therapy appears to be more appropriate * 3. I have suggested the patient to continue to check his blood pressure 2-3 times weekly to rule out transient hypotension * 4. I reviewed the results of his prior diagnostic testing and recent event monitor * 5. We will see him back in the office in 6 months or earlier if the need arise * 6. I counseled the patient regarding coronary artery disease symptoms and signs and I advised him to notify me with change in cardiac status -[facility] 250 DO Work Phone: History of Present illness Narrative* Assessment * 1. prior prior complaints of intermittent dizziness I suspect due to transient hypotension. Patientdenies any recurrence * 2. Borderline abnormal stress test. I suspect his perfusion imaging finding are related to attenuation. The patient describe functional class I. He denies any chest pain and he is completely asymptomatic. He was started recently on low-dose beta-reynaldo * 3. Hypertension controlled on home recording with component of whitecoat effect * 4. Hyperlipidemia * 5. Borderline abnormal EKG * 6. Borderline overweight * Plan * 1. Considering patient is completely asymptomatic I recommended for the time being continuation with observant approach. And advised him to continue low- dose aspirin and a beta-reynaldo * 2. We discussed conservative versus invasive evaluation and I suggested for the time being based onthe size of the defect and lack of symptoms that medical therapy appears to be more appropriate * 3. I have suggested the patient to continue to check his blood pressure 2-3 times weekly to rule out transient hypotension * 4. [facility] * 5. We will see him back in the office in 1 year * 6. I counseled the patient regarding coronary artery disease symptoms and signs and I advised him to notify me with change in cardiac status -[facility] 250 DO Work Phone: History of Present illness Narrative* Assessment * Patient is here for follow-up continue management for history of previous evaluation for dizziness,abnormal stress test, hypertension and hyperlipidemia. Since last time I saw him he presented to the hospital with acute inferior wall myocardial infarction. Cardiac catheterization showed RCA disease and moderate LAD disease. He was treated with PCI but following that he developed hematuria ultimately went to the [facility] where he underwent TURP and removal of bladder stone. His antiplatelet was not interrupted. Patient reports he is feeling better. He denies chest pain, lightheadedness, dizziness or syncope. He reports no recurrence of her hematuria over the last few days. * Assessment * 1. Recent presentation with acute inferior wall myocardial infarction and PCI to the RCA with moderate disease of the LAD * 2. Borderline abnormal stress test. In the past treated conservatively due to lack of angina in thepast and the size of ischemia his cardiac catheterization recently showed RCA disease which was stented and moderate LAD disease * 3. Hypertension controlled on home recording with component of whitecoat effect * 4. Hyperlipidemia * 5. Borderline abnormal EKG * 6. Borderline overweight * 7. Previous history of dizziness improved and no recurrence * 8. Recent history of hematuria improved after TURP and removal of bladder stone * Plan * 1. I reviewed with the patient results of his recent cardiac catheterization, lab work recent hospitalization record * 2. I told him if there is any recurrence of his hematuria we will consider either switching him to Plavix or discontinuation of aspirin down the road * 3. We discussed risk factor modification * 4. I recommended cardiac rehab in 4 weeks if no further hematuria * 5. Follow-up in 6 months with plan to repeat lab work * 6. I I advised him to notify me change in cardiac status or symptoms [facility] 250 DO Work Phone: Hospital course Narrative No data available for this section [facility] Hospital Discharge instructions No data available for this section [facility] data available for this section [facility] progress note Author Elpidio Andres [facility] August 21, 2022 8:11am Note Date/Time August 21, 2022 8:11a m [facility] [address] [place] [address] Cardiology Progress Note Signed Patient: Olaf Briones MR#: [id number] : 1945 Acct:[id number] Age/Sex: 77 / M Adm Date: 3 Loc: Room: [address] [place] [address] Type: REG [facility] Attending Dr: Steven Zamora DO Copies to: ~ Date of Service: 08/21/2022 Subjective Principal diagnosis: Acute inferolateral STEMI status post primary PCI to RCA Interval history: Mr. Briones is doing well this morning. No residual chest pain or other anginal symptoms. Cardiac rhythm has been normal sinus on telemetry monitoring. No evidence of recurrent heart block since primary PCI. No problems at right groinsite. Some pink-tinged urine but the patient does note he has a history of nephrolithiasis and this is not unusual for him. No other complaints or issues presently. The patient has not yet ambulated. Exam Physical Exam Vital Signs: Temp Pulse Resp BP Pulse Ox O2 Del Method 97.4 F L 62 20 146/76 H 98 Room Air 08/21/22 00:00 08/21/22 07:00 08/21/22 07:00 08/21/22 07:00 08/21/22 07:00 08/21/22 07:00 Resp Effort & Inspection: normal respiratory effort, able to speak in complete sentences and symmetric chest movement Auscultation: clear to auscultation bilaterally Cardio Jugular venous pressure: no JVD Palpation: normal PMI Rate: regular rate Rhythm: regular rhythm Heart Sounds: S1 normal, S2 normal and gallop S4 gallop Pulses: femoral pulses present Other: Right groin site without bruit or hematoma 2+ pulse Objective Labs 08/21/22 05:30 08/21/22 05:30 Labs: Laboratory Results - last 24 hr 08/20/22 08/20/22 08/20/22 16:27 16:27 16:27 Corrected WBC 10.7 H Uncorrected WBC Count 10.7 H RBC 4.71 Hgb 15.1 Hct 44.0 MCV 93.4 MCH 32.1 MCHC 34.4 RDW 13.6 Plt Count 215 MPV 9.7 Neut % (Auto) 64.1 Lymph % (Auto) 26.2 [place] % (Auto) 7.9 Eos % (Auto) 1.3 Baso % (Auto) 0.5 Nucleat RBC Rel Count 0.1 Neut # (Auto) 6.9 Lymph # (Auto) 2.8 [place] # (Auto) 0.9 H Eos # (Auto) 0.1 Baso # (Auto) 0.1 Monocyte Dist Width 16.35 PT 11.4 INR 1.0 APTT 25.1 PHA Creatinine Clear 65.05 Sodium 140 Potassium 3.4 L Chloride 105 Carbon Dioxide 24.3 Anion Gap 14.1 BUN 15 Creatinine 0.92 Est GFR (CKD-EPI) > 60.0 Glucose 172 H Calcium 9.4 Total Creatine Kinase Troponin I High Sens B-Natriuretic Peptide Triglycerides Cholesterol LDL Cholesterol, Calc VLDL Cholesterol HDL Cholesterol Cholesterol/HDL Ratio 08/20/22 08/20/22 08/20/22 16:27 16:27 19:09 Corrected WBC Uncorrected WBC Count RBC Hgb Hct MCV MCH MCHC RDW Plt Count MPV Neut % (Auto) Lymph % (Auto) [place] % (Auto) Eos % (Auto) Baso % (Auto) Nucleat RBC Rel Count Neut # (Auto) Lymph # (Auto) [place] # (Auto) Eos # (Auto) Baso # (Auto) Monocyte Dist Width PT INR APTT PHA Creatinine Clear Sodium Potassium Chloride Carbon Dioxide Anion Gap BUN Creatinine Est GFR (CKD-EPI) Glucose Calcium Total Creatine Kinase 115 Troponin I High Sens 366.3 H* 2529.3 H* B-Natriuretic Peptide 24.0 Triglycerides Cholesterol LDL Cholesterol, Calc VLDL Cholesterol HDL Cholesterol Cholesterol/HDL Ratio 08/20/22 08/21/22 08/21/22 21:57 00:13 03:17 Corrected WBC Uncorrected WBC Count RBC Hgb Hct MCV MCH MCHC RDW Plt Count MPV Neut % (Auto) Lymph % (Auto) [place] % (Auto) Eos % (Auto) Baso % (Auto) Nucleat RBC Rel Count Neut # (Auto) Lymph # (Auto) [place] # (Auto) Eos # (Auto) Baso # (Auto) Monocyte Dist Width PT INR APTT PHA Creatinine Clear Sodium Potassium Chloride Carbon Dioxide Anion Gap BUN Creatinine Est GFR (CKD-EPI) Glucose Calcium Total Creatine Kinase Troponin I High Sens 9010.4 H* 81717.3 H* 62065.9 H* B-Natriuretic Peptide Triglycerides Cholesterol LDL Cholesterol, Calc VLDL Cholesterol HDL Cholesterol Cholesterol/HDL Ratio 08/21/22 08/21/22 08/21/22 05:30 05:30 05:30 Corrected WBC 13.6 H Uncorrected WBC Count 13.6 H RBC 4.66 Hgb 14.6 Hct 42.7 MCV 91.6 MCH 31.4 MCHC 34.3 RDW 13.5 Plt Count 171 MPV 9.5 Neut % (Auto) 85.4 Lymph % (Auto) 8.2 [place] % (Auto) 6.1 Eos % (Auto) 0.1 Baso % (Auto) 0.2 Nucleat RBC Rel Count 0.0 Neut # (Auto) 11.7 H Lymph # (Auto) 1.1 [place] # (Auto) 0.8 Eos # (Auto) 0.0 Baso # (Auto) 0.0 Monocyte Dist Width PT INR APTT PHA Creatinine Clear 74.81 Sodium 138 Potassium 3.8 Chloride 103 Carbon Dioxide 27.1 Anion Gap 11.7 BUN 12 Creatinine 0.71 Est GFR (CKD-EPI) > 60.0 Glucose 162 H Calcium 9.4 Total Creatine Kinase Troponin I High Sens 31027.9 H* B-Natriuretic Peptide Triglycerides 124 Cholesterol 132 L LDL Cholesterol, Calc 62 VLDL Cholesterol 24 HDL Cholesterol 45 Cholesterol/HDL Ratio 2.9 A&P - Cardiology (1) ST elevation (STEMI) myocardial infarction: Assessment/Problem Details: Patient doing well on postprocedure day #1 status post primary PCI with drug- eluting stent placement to the dominant right coronary artery in the setting of acute inferolateral STEMI. CCS 0. Patient clinically euvolemic and well compensated. Code(s): I21.3 - ST elevation (STEMI) myocardial infarction of unspecified site Status: Acute Plan: 1. Maintain dual antiplatelet therapy with aspirin and ticagrelor 2. Maintain current medical therapy for recovery of LV systolic function 3. We will ambulate today at least 3 times daily 4. Pending a favorable clinical evolution today [facility] ([facility]) Heart block: Assessment/Problem Details: Resolved with islam of flow to the dominant right coronary artery with primary PCI and drug-eluting stent placement. Code(s): I45.9 - Conduction disorder, unspecified Status: Acute Plan Plan as above. Disposition to home likely 24 hours. Phase 2 monitor cardiac rehabilitation is strongly recommended. Time spent with patient Time Spent With Patient (min): 20 Documented By: Elpidio Andres MD 08/21/22 0807 Signed By: <Electronically signed by Elpidio Andres MD> 08/21/22 0811 [facility] Work Phone: Reason for referral (narrative)* Consultation (Routine) - Authorized Specialty Diagnoses / Procedures Referred By Contac t Referred To Contact Cardiology Diagnoses Arteriosclerotic cardiovascular disease Abnormal EKG Mixed hyperlipidemia Procedures Follow Up In Cardiology Ashutosh Ling MD [address], [address] [address] Ashutosh Ling MD [address] [place] [address] Referral ID Status Reason Start Date Expiration Date V isits Requested Visits Authorized [id number] Authorized 01/09/2023 01/09/2024 1 1 [facility] Work Phone: Family History No Family History Records FoundUnknown Family Member Name Dates Details Family history of hypertensi on: Father(V17.49, Z82.49) Status:Active Family history of vertigo: M other(V19.3, Z83.52) Status:Active Unknown Family Member Name Dates Details Family history of hypertensi on: Father(V17.49, Z82.49) Status:Active Family history of vertigo: M other(V19.3, Z83.52) Status:Active Unknown Family Member Name Dates Details Family history of hypertensi on: Father(V17.49, Z82.49) Status:Active Family history of vertigo: M other(V19.3, Z83.52) Status:Active Unknown Family Member Name Dates Details Family history of vertigo: M other(V19.3, Z83.52) Status:Active Family history of hypertensi on: Father(V17.49, Z82.49) Status:Active Unknown Family Member Name Dates Details Family history of hypertensi on: Father(V17.49, Z82.49) Status:Active Family history of vertigo: M other(V19.3, Z83.52) Status:Active Unknown Family Member Name Dates Details Family history of hypertensi on: Father(V17.49, Z82.49) Status:Active Family history of vertigo: M other(V19.3, Z84.89) Status:Active Unknown Family Member Name Dates Details Family history of hypertensi on: Father(V17.49, Z82.49) Status:Active Family history of vertigo: M other(V19.3, Z84.89) Status:Active Unknown Family Member Name Dates Details Family history of hypertensi on: Father(V17.49, Z82.49) Status:Active Family history of vertigo: M other(V19.3, Z84.89) Status:Active Unknown Family Member Name Dates Details Family history of hypertensi on: Father(V17.49, Z82.49) Status:Active Family history of vertigo: M other(V19.3, Z84.89) Status:Active Unknown Family Member Name Dates Details Family history of hypertensi on: Father(V17.49, Z82.49) Status:Active Family history of vertigo: M other(V19.3, Z84.89) Status:Active Unknown Family Member Name Dates Details Family history of hypertensi on: Father(V17.49, Z82.49) Status:Active Family history of vertigo: M other(V19.3, Z84.89) Status:Active Chief Complaint OLAF BRIONES is being seen for Testing Results. Summary Purpose Advance Directives No Advanced Directives Records Found Advance Directive Response Recorded Date/ Time Advance Directives No August 20 4:37pm Chief Complaint and Reason for Visit Chief Complaint chest pain Reason for Visit Heart block ST elevation (STEMI) myocardial infarction Syncope Additional Source Comments Reason for Visit (unrecogniz ed section and content) Reason Comments Follow Up Phone Call All Clear Reason Comments Patient Update Reason Comments Follow-up 4 month Care Team (unrecognized sect ion and content) Team Status: Active Member Role Status Dates NON STAFF Primary Care Provider Active Team Status: Inactive Member Role Status Dates NON STAFF Primary Care Provider Active Shannon Cochran DO Emergency Provider Active Steven Zamora DO Admit Provider, Attending Provide r Active Juanito Barney MD Other Provider Active Team Status: Active Member Role Status Dates NON STAFF Primary Care Provider Active Shannon Cochran DO Emergency Provider Active W Steve Zamora , Attending Provider Active 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 Relationship Specialty Start Date End Date Jame Barraza MD [address] [place] [address] PCP - General Family Medicine 08/31/22 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 Relationship Specialty Start Date End Date Jame Barraza MD [address] [place] [address] PCP - General Family Medicine 08/31/22 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 Relationship Specialty Start Date End Date Ashutosh Ling MD [address] [facility] [address] [place] [address] PCP - [employer] PCP 08/18/22 Dav Peguero MD [address] [facility] [address] [place] [address] PCP - General Family Medicine 01/09/23 (unrecognized sect ion and content) No Status Records FoundNo Status Records FoundNo Status Records FoundNo Status Records FoundNo Status Records FoundNo Status Records FoundNo Status Records FoundNo Status Records Found INFORMATION SOURCE (unrecogn ized section and content) DATE CREATED AUTHOR 11/15/2021 [facility] DATE CREATED AUTHOR AUTHOR'S ORGANIZ ATION 09/01/2022 [facility] DATE CREATED AUTHOR AUTHOR'S ORGANIZ ATION 09/06/2022 [employer] DATE CREATED AUTHOR AUTHOR'S ORGANIZ ATION 09/07/2022 [facility] DATE CREATED AUTHOR AUTHOR'S ORGANIZ ATION 10/10/2022 [facility] DATE CREATED AUTHOR AUTHOR'S ORGANIZ ATION 11/27/2022 [facility] Center DATE CREATED AUTHOR AUTHOR'S ORGANIZ ATION 01/12/2023 [facility] DATE CREATED AUTHOR AUTHOR'S ORGANIZ ATION 02/08/2023 [facility] Goals (unrecognized section and content) Goals may be documented in a n alternate section Source Comments (unrecognize d section and content) In the event this informatio n is protected by the Federal Confidentiality of Alcohol and Drug Abuse Patient Records regulations: The Federal rules restrict any use of the information to criminally investigate or prosecute any alcohol or drug abuse patient.[facility] the event this information is protected by the Federal Confidentiality of Alcohol and Drug Abuse Patient Records regulations: The Federal rules restrict any use of the information to criminally investigate or prosecute any alcohol or drug abuse patient.[facility] FOR RECORDS PERTAINING TO PATIENTS WHO ARE OR HAVE BEEN ENROLLED IN A CHEMICAL DEPENDENCY/SUBSTANCEABUSE PROGRAM, SOME INFORMATION MAY BE OMITTED. This clinical summary was aggregated from multiple sources. Caution should be exercised in using it in the provision of clinical care. This summary normalizes information from multiple sources, and as a consequence, information in this document may materially change the coding, format and clinical context of patient data. In addition, data may be omitted in some cases. CLINICAL DECISIONS SHOULD BE BASED ON THE PRIMARY CLINICAL RECORDS. [facility] [employer] [facility] provides no warranty or guarantee of the accuracy or completeness of information in this document.
[2023-03-04 08:52] VITALS: BP 151/72; PULSE 78; RESP 16; TEMP 36.7; O2SAT 97
[2023-03-04 10:04] VITALS: BP 132/63; PULSE 61; RESP 18; O2SAT 98
--- NOTE | 2023-03-04 10:04 | W.PM.PROCNOT ---
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 Informed consent was obtained and placed on the chart.? Patient was brought to the medical procedure unit and placed in the prone position where a timeout was completed verifying the correct patient, procedure site, position, and planned special equipment using sterile aseptic technique.? Under direct fluoroscopic visualization a 25-gauge Quincke tipped spinal needle was advanced at level left L3-4 to the designated neural foramen where contrast dye was injected to show adequate spread.? There was no evidence of vascular or adverse uptake.? Epidural spread was appreciated.? The above-mentioned injectate was then placed in a 1.5 mL aliquot preceded by negative aspiration.? The needle was removed. The same procedure, at the same level, was completed on the opposite side. ? Patient was taken to the postprocedural recovery area and monitored for an appropriate length of time before found suitable for discharge in the accompaniment of a responsible adult. Anesthesia: Local Surgeon: Alonzo Briscoe Pathology: none sent Condition: stable Disposition: no change
[2023-03-04 10:06] VITALS: BP 134/68; PULSE 58; RESP 18; O2SAT 98
[2023-03-04] MEDS: DEXAMETHASONE SOD PHOS 10 MG/ML VIAL INJ (10:08)
[2023-03-04] MEDS: BUPIVACAINE HCL 0.25% PF 25 MG/10 ML VIAL INJ (10:08)
[2023-03-04] MEDS: 0.9 % SODIUM CHLORIDE 10 ML INJ (10:08)
[2023-03-04] MEDS: LIDOCAINE HCL 2% PF 100 MG/5 ML VIAL 3 ML INJ (10:09)
[2023-03-04] MEDS: IOHEXOL 240 MG/ML - 10 ML VIAL 12 MG INJ (10:09)
== END 2023-03-04 10:08 | disposition home or self-care (01) ==
PROVIDERS: PCP Family Medicine; Visit Provider Anesthesiology
DX: M48.062 Spinal stenosis, lumbar region with neurogenic claudication (principal)
CPT/HCPCS: 64483; 64484; J0665; J1100; Q9966

== ENCOUNTER 2023-03-18 08:11 | Day surgery (SDC) | payer MEDICARE, SELFPAY ==
--- OUTSIDE RECORDS SUMMARY | 2023-03-18 08:17 | XMS_ITS | CCD ---
Author Name Unknown Address [address] [facility] [address] [place] [address] Organization [facility] Care Team Providers Care Contract Mail Carrier Name Role Phone Jame Barraza Unavailable Unavailable Unavailable JAME BARRAZA Primary Care Physician DR SHANNA IVORY Attending Unavailable CHRISTI, DR JAME Bowers Primary Care Unavailable DR SHANNA IVORY Admitting Unavailable DR SHANNA IVORY Consulting Unavailable [place]EN[place], DR AMNA Saucedo Consulting Unavailable DOMINGUEZ GUTIERREZ Admitting Unavailable DOMINGUEZ GUTIERREZ Attending Unavailable DR JAME BARRAZA Primary Care Unavailable NON STAFF Primary Care Provider UnavailDO Reymundo Perezic Emergency Provider [phone] DO Steven Zamora Attending Provider NON STAFF Primary Care Provider Unavailsigrid Cochran DO Shannon Emergency Provider [phone] DO tSeven Zamora Admit Provider [phone] DO Steven Zamora Attending Provider MD Juanito Barney Other Provider JAME BARRAZA Primary Care Physician [phone] Steven Zamora Admitting Unavailable Steven Zamora Attending Unavailable NON STAFF Primary Care Unavailable Juanito Barney Consulting Unavailable Jame Barraza MD Primary Care Provider Nahomi Hernandez Unavailable DAVID ANDREWS Attending Unavailable DAVID ANDREWS Admitting Unavailable Dr. Jame Barraza Primary Care Unavailab alda Ling, Dr. [place] Attending Unavailusama Ling, Dr. [place] Referring UnavailDr. Jame Quan Primary Care Unavailab alda Hernandez, Dr. Nahomi Guerrero Primary Care Unavailab [...] KOROMA Attending Unavailable Ashutosh Ling MD Unavailable [phone] Dav Peguero MD Primary Care Provider [phone] ASHUTOSH LING Attending Unavailable DAV PEGUERO Primary Care Unavailable DAV PEGUERO Attending Unavailable Rachna HAHN, Alonzo Bobo Attending Unavailable Rachna HAHN, Alonzo Bobo Attending Unavailable Allergies Allergy Classification Reported Allergen(s) Allergy Type Date of Onset Reaction(s) Facility (20 sources) Albuterol; Translations: [albuterol] Drug Allergy 11-12-19 12 Headache (finding), Other: See Comments, Headache [facility] (17 sources) hydroCHLOROthiazide; Translations: [hydroCHLOROthiazide TABS] Drug Allergy 08-21-19 23 Eruption of skin (disorder), Rash [facility] (4 sources) Sulfamethoxazole / Trimethoprim; Translations: [sulfamethoxazole-trim ethoprim] Drug Allergy Unknown (qualifier value) [facility] (1 source) Albuterol Drug Allergy [facility] (6 sources) hydroCHLOROthiazide; Translations: [HYDROCHLOROTHIAZIDE] Drug Allergy 08-21-19 Rash [facility] (2 sources) Adhesive Tape; Translations: [adhesive tape] Propensity to adverse reactions 08-22-19 [facility] (1 source) Albuterol Drug Allergy 08-21-19 23 [facility] (1 source) hydroCHLOROthiazide Drug Allergy 08-21-19 [facility] Medications Current Medications Medication Drug Class(es) [...] tab(s), Oral, Daily, Refills(s) 0 Start Date: 10/21/20 Status: Ordered Multi Vitamin Oral Tablet (6 [...] Coronary arteriosclerosis; Translations: [Atherosclerotic heart disease of [place] coronary artery without angina pectoris] Onset: 08-27-2022 [...] Urnls Dip Stick Auto w/o Microscopy POC 04179 XR Abdomen 1 View -- Results Pending [...] HAHN, Shanna Sánchez Where: [facility] Pathology Noteon 11-26-2022 Pathology Note [id number]#1.00TIFF [facility] Patient Educationon 11-27-19 Patient Education Nephrology Dietary [...] ? 8 oz (237 mL) of milk, jtanrar-ruuvugufwrrz-rtius milk, and calcium-fortifiedfruit juice. Calcium-fortified means that [...] Spinach (cooked), rhubarb, beets, sweet potatoes, and Guamanian chard. ? Peanuts. ? Potato chips, estonian fries, and baked potatoes with skin on. ? Nuts and nut products. ? Chocolate. ? If you regularly take a diuretic medicine, make sure to eat at least 1 or 2 servings of fruits or vegetables that are high in potassium each day. These include: ? Avocado. ? Banana. ? [place], prune, carrot, or tomato juice. ? Baked [...] fish oil, or vitamin B6. ? Take zets-ede-rnikrvl and prescription medicines only as told by your health care provider. These include supplements. What foods should I limit? Limit your in (more content not included)... Normal [facility] RAD - MISCon 11-26-2022 [facility] MIS [id number]#1.00TIFF Normal [facility] Urology Office/Clinic Noteon 11-26-2022 Urology Office/Clinic Note Chief Complaint 1yr KUB HPI Staff Pt is here today for 1yr KUB due to BPH, Kidney Stone & Microscopic Hematuria. *Allopurinol 300mg qd therapy. At that time PRW discussed DC'ing PSA checks due to pt's advancing age. Since then pt has gone to [facility] 08/26/22 CC: Lower Pelvic Pain & Blood clots in urine PVR at that time 500ml Catheter Placed C&S 600 cfu/ml Staphylococcus species coagulase negative Sandy not indicative of a Cath specimen CTU 08/26/22 Dr Koroma did see pt, due to recent cardiac cath & heart attack, pt was transferred to [facility]. There pt underwent Cysto/Clot Evacuation/Litholapaxy & TURP [...] age. Since then pt has gone to [facility] 08/26/22 CC: Lower Pelvic Pain & Blood clots in urine PVR at that time 500ml Catheter Placed C&S 600 cfu/ml Staphylococcus species coagulase negative Sandy not indicative of a Cath specimen CTU 08/26/22 Dr Koroma did see pt, due to recent cardiac cath & heart attack, pt was transferred to [facility]. There pt underwent Cysto/Clot Evacuation/Litholapaxy & TURP [...] stones. Stone Analysis done 08/28/22 - CaOx [place] 50%, CaOx [place] 40%, and minor components [...] infection. Denies gross hematuria. S/p Cysto done 2017. Follow-up With When Contact Information CACHORRO HAHN, JENNIFER Carvalho In 1 year [facility] [address], [place] [address]- Additional Instructions: w/KUB Patient Education Dietary Guidelines [...] trigone, bladder n (more content not included)... [facility] Comment on above: Result Comment: Elec tronically Signed By: CACHORRO HAHN, Shanna Sánchez\.br\Date and Time Signed: 11/26/22 14:10 EDT\.br\Electronically Co-Signed By: Sheila Tripathi.br\Date and Time Co-Signed: 11/26/22 14:08 EDT Physician Orderon 11-20-2022 Physician Order [id number]#1.00CD:127 [facility] Auth for Release of Medical Recordson 09-27-2022 Auth for Release of Medical Records [id number]#1.00CD:127 [facility] Consultation Noteon 09-20-19 Consultation Note [id number]#1.00CD:127 [facility] Consultation Note [id number]#1.00CD:127 [facility] Consultation Note [id number]#1.00CD:127 [facility] Consultation Note [id number]#1.00CD:127 [facility] Lab Reportson 09-19-2022 Lab Reports [id number]#1.00CD:127 Normal [facility] Lab Reports [id number]#1.00CD:127 Normal [facility] Lab Reports [id number]#1.00CD:127 [facility] Lab Reports [id number]#1.00CD:127 [facility] Operative Reporton 3 Operative Report [id number]#1.00CD:127 [facility] Operative Report [id number]#1.00CD:127 [facility] CNPNon 09-06-2022 CNPN Telephone (UROLMN) -- OLAF BRIONES ([id number]) 1945 M Date Time Provider Department 09/06/22 JUSTINE WILSON During your visit today, we recorded the following information about you: Justine Wilson RN 09/06/2022 10:31 AM Signed ----- Message from Jocelin Gr sent at 09/06/2022 8:23 AM EDT ----- Regarding: medciation script needed Contact: Pt is calling in to see if the flomax can be called in. The pharmacy is not at [facility]. I will need to call them when [...] Hematuria [R31.9] 08/27/20[address] disease involving [facility] hinton*08/27/2022 Adverse reaction to antiplatelet agent [T45.7X5*08/27/2022 Myocardial infarction (HCC) [I21.9] 08/27/2022 Essential (primary) hypertension [I10] 08/27/2022 Type 2 diabetes mellitus without complication, *08/27/2022 Leukocytosis [D72.829] 08/27/2022 Malnutrition of mild degree (HCC) [E44.1] 08/29/2022 Encounter Status:Closed by JUSTINE WILSON RN on 09/06/22 [facility] Ambulatory Visit Summaryon 0 09-05-2022 Ambulatory Visit Summary OLAF BRIONES :1945 Visit Date:09/05/2022 Ambulatory Visit Instructions Your Care Team Primary Care Physician - CHRISTI HAHN, JAME Bowers This Is Your Medications [...] HAHN, Shanna Sánchez Where: [facility] Office Visit (Cardiology)on 09-05-2022 [...] Status: Hold For - Scheduling Requested for: [id number] Agreement : I agree to have my patient participate in the phase III outpatient cardiac rehabilitation program after completion of the phase II program. Consent : I consent to have my patient participate in the cardiac rehabilitation program. I will continue regular medical care of my patient throughout his/her participation in the program. Individualized Treatment Plan and Exercise Prescription : Request the Super[employer] to share responsibility for developing an ITP [...] in adult Healthy Weight Tips; Status:Complete; Done: [id number] Some eating tips that can help you lose weight.; Status:Complete; Done: 40Tug1413 SocHx: Former smoker Tobacco Use Screening; Status:Complete; Done: [id number] Patient Instructions Please bring all medicines, vitamins, and herbal supplements with you when you come to the office. Prescriptions will not be filled unless you are compliant with your follow up appointments or have a follow up appointment scheduled as per instruction of your physician. Refills should be requested at the time of your visit. Follow up in 4 months [facility] cardiac rehab -one month History of [...] he developed hematuria ultimately went to the [facility] where he underwent TURP and removal of [...] 1 TABLET (more content not included)... Normal Familytic Tobacco Screening.on 023 Adult depression screening assessment No [facility] Gullivearth DO Work Phone: Fall risk assessment a) No falls within the last year [facility] Gullivearth DO Work Phone: Tobacco use status CP b) No M [facility] Gullivearth DO Work Phone: [facility] BRIONES ([id number]) 1945 Date Time Provider Department 09/04/22 DEBORAH IBARRA PODCCP During your visit today, we recorded the following information about you: Deborah Ibarra RN 09/04/2022 12:52 PM Signed PATIENT INFORMATION Record ID: [id number] Patient Name: [facility]: [facility]: [facility] Attending: David Andrews Center: Urology INSTRUCTIONS SN to remind patient of appointment date, time, location All Clear All Clear SURVEY INFORMATION Medical/Nurse Cardiac/Vascular Sonographer: Deborah Ibarra 1. Your discharge instructions are [...] Reason for Visit: Follow Up Phone Call [[id number]] Cmt: All Clear Prescriptions as of 09/04/2022 [...] Hematuria [R31.9] 08/27/[address] disease [address] [facility] [place] ira hinton*08/27/2022 Adverse reaction to antiplatelet agent [T45.7X5*08/27/2022 Myocardial infarction (HCC) [I21.9] 08/27/2022 Essential (primary) hypertension [I10] 08/27/2022 Type 2 diabetes mellitus without complication, *08/27/2022 Leukocytosis [D72.829] 08/27/2022 Malnutrition of mild degree (HCC) [E44.1] 08/29/2022 Encounter Status:Closed by DEBORAH IBARRA on 09/04/22 Normal [facility] CBC panel Auto (Bld)on 08-31 Erythrocyte distribution width (RBC) [Ratio] 12.8 % Normal 11.5-15.0 [facility] Comment on above: Order Comment: Speci men Type: BLOOD SPECIMENOrdering Facility: [facility] Address: [address] [address] Performed By: #### 5 8410-2 ####[facility] LABIA [id number] [place] [address] [place] Hematocrit (Bld) [Volume fraction] 30.7 % Low 39.0-51.0 [facility] Comment on above: Order Comment: Speci men Type: BLOOD SPECIMENOrdering Facility: [facility] Address: [address] [address] Performed By: #### 5 8410-2 ####[facility] LABCLIA [id number] [place] [address] [place] Hemoglobin (Bld) [Mass/Vol] 10.4 g/dL Low 13.0-17.0 [facility] Comment on above: Order Comment: Speci men Type: BLOOD SPECIMENOrdering Facility: [facility] Address: [address] [place], [place] [address] Performed By: #### 5 8410-2 ####[facility] LABCLIA [id number] [address] [place] MCH (RBC) [Entitic mass] 31.4 pg Normal 26.0-34.0 [facility] Comment on above: Order Comment: Speci men Type: BLOOD SPECIMENOrdering Facility: [facility] Address: [address] [place], [place] [address] Performed By: #### 5 8410-2 ####[facility] LABCLIA [id number] [address] [place] MCHC (RBC) [Mass/Vol] 33.9 g/dL Normal 30.5-36.0 [facility] Comment on above: Order Comment: Speci men Type: BLOOD SPECIMENOrdering Facility: [facility] Address: [address] [place], [place] [address] Performed By: #### 5 8410-2 ####[facility] LABCLIA [id number] [place] [address] [place] MCV (RBC) [Entitic vol] 92.7 fL Normal 80.0-100.0 [facility] Comment on above: Order Comment: Speci men Type: BLOOD SPECIMENOrdering Facility: [facility] Address: [address] [place], [place] [address] Performed By: #### 5 8410-2 ####[facility] LABCLIA [id number] [address] [place] Nucleated RBC (Bld) [#/Vol] 10*3/uL Normal <0.01 [facility] Comment on above: Order Comment: Speci men Type: BLOOD SPECIMENOrdering Facility: [facility] Address: [address] Performed By: #### 5 8410-2 ####[facility] LABIA [id number] [place] [address] [place] Platelet mean volume (Bld) [Entitic vol] 11.5 fL Normal 9.0-12.7 [facility] Comment on above: Order Comment: Speci men Type: BLOOD SPECIMENOrdering Facility: [facility] Address: [address] [place], [place] [address] Performed By: #### 5 8410-2 ####[facility] LABIA [id number] [place] [address] [place] Platelets (Bld) [#/Vol] 194 10*3/uL Normal 150-400 [facility] Comment on above: Order Comment: Speci men Type: BLOOD SPECIMENOrdering Facility: [facility] Address: [address] [place], [place] [address] Performed By: #### 5 8410-2 ####[facility] LABIA [id number] [place] [address] [place] RBC (Bld) [#/Vol] 3.31 10*6/uL Low 4.20-6.00 [facility] Comment on above: Order Comment: Speci men Type: BLOOD SPECIMENOrdering Facility: [facility] Address: [address] [place], [place] [address] Performed By: #### 5 8410-2 ####[facility] LABIA [id number] [place] [address] [place] WBC (Bld) [#/Vol] 10.56 10*3/uL Normal 3.70-11.00 [facility] Comment on above: Order Comment: Speci men Type: BLOOD SPECIMENOrdering Facility: [facility] Address: [address] [place], [place] [address] Performed By: #### 5 8410-2 ####[facility] LABCLIA [id number] [address] CNon 08-31-2022 CNDS HNO ID: [id number] Author: David Andrews MD Service: Urology Author [...] stable in SICU, ready to transfer to [facility]. Hernandez light pink on traction. Discontinued on Zosyn given negative blood and urine cultures. - DOA#3/POD#2: Hemoglobin continues to be stable. Urine light pink off traction. Transferred to [facility] - DOA#4/POD#3: Will discharge today with hernandez [...] Your Medications These medications were sent to [facility] [address] [place] [address] Hours: Saturday-Saturday 7am-8pm, Saturday, Saturday and Holidays [...] DATE: August 31, 2022 TIME: 8:41 AM [facility] STAFF PHYSICIAN NOTE OF PERSONAL INVOLVEMENT IN [...] care coordinatio (more content not included)... Normal [facility] Comprehensive metabolic 2000 panelon 08-31-2022 Albumin [Mass/Vol] 3.8 g/dL Low 3.9-4.9 [facility] Comment on above: Order Comment: Speci men Type: BLOOD SPECIMENOrdering Facility: [facility] Address: [address] [place] [address] Performed By: #### 2 432-8, , 2776-02 ####[facility] LABCLIA [id number] [place] [address] [place] ALP [Catalytic activity/Vol] 116 U/L High 38-113 [facility] Comment on above: Order Comment: Speci men Type: BLOOD SPECIMENOrdering Facility: [facility] Address: [address] [place] [address] Performed By: #### 2 432-8, , 2776-02 ####[facility] LABIA [id number] [address] [place] ALT [Catalytic activity/Vol] 23 U/L Normal 10-54 [facility] Comment on above: Order Comment: Speci men Type: BLOOD SPECIMENOrdering Facility: [facility] Address: [address] [place], [place] [address] Performed By: #### 2 4323-8, , 2776-02 ####[facility] LABCLIA [id number] [place] [address] [place] Anion gap [Moles/Vol] 9 mmol/L Normal 9-18 [facility] Comment on above: Order Comment: Speci men Type: BLOOD SPECIMENOrdering Facility: [facility] Address: [address] [place], [place] [address] Performed By: #### 2 4323-8, , 2776-02 ####[facility] LABCLIA [id number] [place] [address] [place] AST [Catalytic activity/Vol] 19 U/L Normal 14-40 [facility] Comment on above: Order Comment: Speci men Type: BLOOD SPECIMENOrdering Facility: [facility] Address: [address] [place], [place] [address] Performed By: #### 2 4323-8, , 2776-02 ####[facility] LABCLIA [id number] [place] [address] [place] Bilirubin [Mass/Vol] 0.3 mg/dL Normal 0.2-1.3 [facility] Comment on above: Order Comment: Speci men Type: BLOOD SPECIMENOrdering Facility: [facility] Address: [address] [place] [address] Performed By: #### 2 4323-8, , 2776-02 ####[facility] LABCLIA [id number] [place] [address] [place] Calcium [Mass/Vol] 9.1 mg/dL Normal 8.5-10.2 [facility] Comment on above: Order Comment: Speci men Type: BLOOD SPECIMENOrdering Facility: [facility] Address: [address] [place], [place] [address] Performed By: #### 2 4323-8, , 2776-02 ####[facility] LABCLIA [id number] [place] [address] [place] Chloride [Moles/Vol] 105 mmol/L Normal 97-105 [facility] Comment on above: Order Comment: Speci men Type: BLOOD SPECIMENOrdering Facility: [facility] Address: [address] [place] [address] Performed By: #### 2 4323-8, , 2776-02 ####[facility] LABCLIA [id number] [place] [address] [place] CO2 [Moles/Vol] 25 mmol/L Normal 22-30 [facility] Comment on above: Order Comment: Speci men Type: BLOOD SPECIMENOrdering Facility: [facility] Address: [address] [place] [address] Performed By: #### 2 4323-8, , 2776-02 ####[facility] LABCLIA [id number] [address] [place] Creatinine [Mass/Vol] 0.88 mg/dL Normal 0.73-1.22 [facility] Comment on above: Order Comment: Speci men Type: BLOOD SPECIMENOrdering Facility: [facility] Address: [address] [place] [address] Performed By: #### 2 4323-8, , 2776-02 ####[facility] LABCLIA [id number] [address] [place] ESTIMATED GLOMERULAR FILTRATION RATE 89 mL/min/1.73m??? Normal >=60 [facility] Comment on above: Order Comment: Speci men Type: BLOOD SPECIMENOrdering Facility: [facility] Address: [address] [place] [address] Result Comment: Mariaelena mated Glomerular Filtration Rate [...] Performed By: #### 2 4323-8, , 2776-02 ####[facility] LABCLIA [id number] [place] [address] [place] Glucose [Mass/Vol] 114 mg/dL High 74-99 [facility] Comment on above: Order Comment: Speci men Type: BLOOD SPECIMENOrdering Facility: [facility] Address: [address] [place] [address] Result Comment: The [place] Diabetes Association (ADA) provides guidance for cutoff [...] Standards of Medical Care in Diabetes 2016, [place] Diabetes Association. Diabetes Care. 2016.39(Suppl 1). Performed By: #### 2 4323-8, , 2776- ####[facility] [id number] [place] [address] [place] Potassium [Moles/Vol] 4.2 mmol/L Normal 3.7-5.1 [facility] Comment on above: Order Comment: Speci men Type: BLOOD SPECIMENOrdering Facility: [facility] Address: [address] [place] [address] Performed By: #### 2 4323-8, , 2776-02 ####[facility] [id number] [place] [address] [place] Protein [Mass/Vol] 6.1 g/dL Low 6.3-8.0 [facility] Comment on above: Order Comment: Speci men Type: BLOOD SPECIMENOrdering Facility: [facility] Address: [address] [place] [address] Performed By: #### 2 4323-8, , 2776-02 ####[facility] LABIA [id number] [address] [place] [id number] [place] Sodium [Moles/Vol] 139 mmol/L Normal 136-144 [facility] Comment on above: Order Comment: Speci men Type: BLOOD SPECIMENOrdering Facility: [facility] Address: [address] [place] [address] Performed By: #### 2 4323-8, , 2776-02 ####[facility] LABIA [id number] [place] [address] [place] Urea nitrogen [Mass/Vol] 21 mg/dL Normal 9-24 [facility] Comment on above: Order Comment: Speci men Type: BLOOD SPECIMENOrdering Facility: [facility] Address: [address] [place] [address] Performed By: #### 2 43238, , 2776-02 ####[facility] LABIA [id number] [place] [address] [place] Magnesium SerPl-mCncon 08-31 Magnesium [Mass/Vol] 2.2 mg/dL Normal 1.7-2.3 [facility] Comment on above: Order Comment: Speci men Type: BLOOD SPECIMENOrdering Facility: [facility] Address: [address] [place] [address] Performed By: #### 2 4323-8, , 2776-02 ####[facility] [id number] [address] [id number] [place] PT panel Coag (PPP)on 2022 INR Coag (PPP) [Relative time] 1.0 {INR} Normal 0.9-1.3 [facility] Comment on above: Order Comment: Speci men Type: BLOOD SPECIMENOrdering Facility: [facility] Address: [address] [address] Result Comment: Mago min K Antagonist (VKA) Therapeutic Range: INR 2 to 3 (Target INR of 2.5) Note: For patients treated with VKA drugs, such as warfarin, the [place] [employer] 2012 Guideline recommends [...] to 3.5 (target INR of 3). David BENITEZ, et al. Chest 2012, 141:7S-47S Daniel RA, et al. [facility] 2017, 70: 252-289 Performed By: #### 3 4528-0, 77617-5 ####[facility] LABCLIA [id number] [place] [address] [place] PT Coag (PPP) [Time] 10.4 s Normal 9.7-13.0 [facility] Comment on above: Order Comment: Speci men Type: BLOOD SPECIMENOrdering Facility: [facility] Address: [address] [place] [address] Performed By: #### 3 4528-0, 77915-2 ####[facility] LABCLIA [id number] [place] [id number] [place] Phosphate SerPl-mCncon 08-31 Phosphate [Mass/Vol] 3.6 mg/dL Normal 2.7-4.8 [facility] Comment on above: Order Comment: Speci men Type: BLOOD SPECIMENOrdering Facility: [facility] Address: [address] [place] [address] Performed By: #### 2 4323-8, 86321-5, 2777-1 ####[facility] LABCLIA [id number] [address] [place] THERAPY NTon 08-31-2022 THERAPY NT HNO ID: [id number] Author: Jenna Duggan, PT Service: Physical Therapy Author Type: Physical Therapist Type: Therapy (PT/OT/Speech/Resp) Filed: 08/31/2022 10:55 AM Note Text: Physical Therapy Treatment SERVICE DATE: 08/31/2022 SERVICE TIME: 40 to 1003 ROOM: [place] [address] Recommended Discharge Disposition: Home Anticipated Discharge Needs: [...] HLD, DM, recent STEMI (08/20/2022), transferred from [facility] for gross hematuria. Currently with 18Fr 3-way catheter on CBI. 08/28/22: s/p cystoscopy, clot evacuation, cystolitholapaxy, TURP. Admitted to SICU postoperatively due to pressor requirements and risk of hyponatremia due to length of TURP. 22Fr [address] hernandez placed introp, on traction and CBI. Reason for Hospital Admission: Pt 77y/o male transferred from [facility] for gross hematuria secondary to recent STEMI [...] Diagnosis: Reduced mobility-other Interventions Provided: Gait Training (61456) Gait Training (28270) Treatment Minutes: 23 $ Gait Training (16003) Billed Units: 2 units Training AND Education Provided in: Benefits of In-Hospital Mobility, Bed Mobility, Energy Conservation, Equipment, Exercise Program, Expected Functional Level, Gait Pattern, Reduction of Deviations, Patient Exercise/Therapy Program Support Needs, Positioning, Precautions/Restrictions, Role of Physical Therapy, Standing Balance, (more content not included)... Normal [facility] aPTT PPPon 08-31-2022 aPTT Coag (PPP) [Time] 25.2 s Normal 23.0-32.4 [facility] Comment on above: Order Comment: Speci men Type: BLOOD SPECIMENOrdering Facility: [facility] Address: [address] [place] [address] Performed By: #### 3 4528-0, 89609-7 ####[facility] LABIA [id number] [place] [address] [place] CBC panel Auto (Bld)on 08-30 Erythrocyte distribution width (RBC) [Ratio] 12.7 % Normal 11.5-15.0 [facility] Comment on above: Order Comment: Speci men Type: BLOOD SPECIMENOrdering Facility: [facility] Address: [address] [place] [address] Performed By: #### 5 8410-2 ####[facility] LABIA [id number] [place] [address] [place] Hematocrit (Bld) [Volume fraction] 30.5 % Low 39.0-51.0 [facility] Comment on above: Order Comment: Speci men Type: BLOOD SPECIMENOrdering Facility: [facility] Address: [address] [place], [place] [address] Performed By: #### 5 8410-2 ####[facility] LABIA [id number] [place] [address] [place] Hemoglobin (Bld) [Mass/Vol] 10.4 g/dL Low 13.0-17.0 [facility] Comment on above: Order Comment: Speci men Type: BLOOD SPECIMENOrdering Facility: [facility] Address: [address] [place] [address] Performed By: #### 5 8410-2 ####[facility] [id number] [place] [address] [place] MCH (RBC) [Entitic mass] 31.7 pg Normal 26.0-34.0 [facility] Comment on above: Order Comment: Speci men Type: BLOOD SPECIMENOrdering Facility: [facility] Address: [address] [place] [address] Performed By: #### 5 8410-2 ####[facility] [id number] [address] [place] MCHC (RBC) [Mass/Vol] 34.1 g/dL Normal 30.5-36.0 [facility] Comment on above: Order Comment: Speci men Type: BLOOD SPECIMENOrdering Facility: [facility] Address: [address] [place] [address] Performed By: #### 5 8410-2 ####[facility] [id number] [address] STATES OF [facility] MCV (RBC) [Entitic vol] 93.0 fL Normal 80.0-100.0 [facility] Comment on above: Order Comment: Speci men Type: BLOOD SPECIMENOrdering Facility: [facility] Address: [address] [place] [address] Performed By: #### 5 8410-2 ####[facility] [id number] [address] [place] Nucleated RBC (Bld) [#/Vol] 10*3/uL Normal <0.01 [facility] Comment on above: Order Comment: Speci men Type: BLOOD SPECIMENOrdering Facility: [facility] Address: [address] [place] [address] Performed By: #### 5 8410-2 ####[facility] [id number] [address] [place] Platelet mean volume (Bld) [Entitic vol] 11.6 fL Normal 9.0-12.7 [facility] Comment on above: Order Comment: Speci men Type: BLOOD SPECIMENOrdering Facility: [facility] Address: [address] [place], [place] [address] Performed By: #### 5 8410-2 ####[facility] LABCLIA [id number] [place] [address] [place] Platelets (Bld) [#/Vol] 192 10*3/uL Normal 150-400 [facility] Comment on above: Order Comment: Speci men Type: BLOOD SPECIMENOrdering Facility: [facility] Address: [address] [place], [place] [address] Performed By: #### 5 8410-2 ####[facility] LABCLIA [id number] [place] [address] [place] RBC (Bld) [#/Vol] 3.28 10*6/uL Low 4.20-6.00 [facility] Comment on above: Order Comment: Speci men Type: BLOOD SPECIMENOrdering Facility: [facility] Address: [address] [place], [place] [address] Performed By: #### 5 8410-2 ####[facility] LABCLIA [id number] [place] [address] [place] WBC (Bld) [#/Vol] 15.06 10*3/uL High 3.70-11.00 [facility] Comment on above: Order Comment: Speci men Type: BLOOD SPECIMENOrdering Facility: [facility] Address: [address] [place], [place] [address] Performed By: #### 5 8410-2 ####[facility] LABCLIA [id number] [place] [address] [place] Comprehensive metabolic 2000 panelon 08-30-2022 Albumin [Mass/Vol] 3.4 g/dL Low 3.9-4.9 [facility] Comment on above: Order Comment: Speci men Type: BLOOD SPECIMENOrdering Facility: [facility] Address: [address] Performed By: #### 2 4323-8, , 2776-02 ####[facility] LABCLIA [id number] [place] [address] [place] ALP [Catalytic activity/Vol] 105 U/L Normal 38-113 [facility] Comment on above: Order Comment: Speci men Type: BLOOD SPECIMENOrdering Facility: [facility] Address: [address] [place] [address] Performed By: #### 2 4323-8, , 2776-02 ####[facility] LABIA [id number] [place] [address] [place] ALT [Catalytic activity/Vol] 18 U/L Normal 10-54 [facility] Comment on above: Order Comment: Speci men Type: BLOOD SPECIMENOrdering Facility: [facility] Address: [address] [place] [address] Performed By: #### 2 4323-8, , 2776-02 ####[facility] LABIA [id number] [place] [address] [place] Anion gap [Moles/Vol] 11 mmol/L Normal 9-18 [facility] Comment on above: Order Comment: Speci men Type: BLOOD SPECIMENOrdering Facility: [facility] Address: [address] Performed By: #### 2 4323-8, , 2776-02 ####[facility] LABIA [id number] [place] [address] [place] AST [Catalytic activity/Vol] 16 U/L Normal 14-40 [facility] Comment on above: Order Comment: Speci men Type: BLOOD SPECIMENOrdering Facility: [facility] Address: [address] Performed By: #### 2 4323-8, 53827-4, 2776-02 ####[facility] LABCLIA [id number] [place] [address] [place] Bilirubin [Mass/Vol] 0.3 mg/dL Normal 0.2-1.3 [facility] Comment on above: Order Comment: Speci men Type: BLOOD SPECIMENOrdering Facility: [facility] Address: [address] Performed By: #### 2 4323-8, , 2776-02 ####[facility] LABCLIA [id number] [place] [address] [place] Calcium [Mass/Vol] 8.9 mg/dL Normal 8.5-10.2 [facility] Comment on above: Order Comment: Speci men Type: BLOOD SPECIMENOrdering Facility: [facility] Address: [address] Performed By: #### 2 4323-8, , 2776-02 ####[facility] LABIA [id number] [place] [address] [place] Chloride [Moles/Vol] 103 mmol/L Normal 97-105 [facility] Comment on above: Order Comment: Speci men Type: BLOOD SPECIMENOrdering Facility: [facility] Address: [address] Performed By: #### 2 4323-8, , 2776-02 ####[facility] LABIA [id number] [place] [address] [place] CO2 [Moles/Vol] 24 mmol/L Normal 22-30 [facility] Comment on above: Order Comment: Speci men Type: BLOOD SPECIMENOrdering Facility: [facility] Address: [address] Performed By: #### 2 4323-8, 46901-5, 2776- ####[facility] LABIA [id number] [place] [address] [place] Creatinine [Mass/Vol] 0.77 mg/dL Normal 0.73-1.22 [facility] Comment on above: Order Comment: Speci men Type: BLOOD SPECIMENOrdering Facility: [facility] Address: [address] [place] [address] Performed By: #### 2 4323-8, , 2776-02 ####[facility] [id number] [place] [address] [place] ESTIMATED GLOMERULAR FILTRATION RATE 92 mL/min/1.73m??? Normal >=60 [facility] Comment on above: Order Comment: Portia tay Type: BLOOD SPECIMENOrdering Facility: [facility] Address: [address] [place] [address] Result Comment: Mariaelena mated Glomerular Filtration Rate [...] Performed By: #### 2 4323-8, , 2776-02 ####[facility] LABIA [id number] [place] [id number] [place] Glucose [Mass/Vol] 124 mg/dL High 74-99 [facility] Comment on above: Order Comment: Janiei men Type: BLOOD SPECIMENOrdering Facility: [facility] Address: [address] [place] [address] Result Comment: The [place] Diabetes Association (ADA) provides guidance for cutoff [...] Standards of Medical Care in Diabetes 2016, [place] Diabetes Association. Diabetes Care. 2016.39(Suppl 1). Performed By: #### 2 4323-8, , 2776-02 ####[facility] LABCLIA [id number] [place] [address] [place] Potassium [Moles/Vol] 3.9 mmol/L Normal 3.7-5.1 [facility] Comment on above: Order Comment: Speci men Type: BLOOD SPECIMENOrdering Facility: [facility] Address: [address] [place] [address] Performed By: #### 2 432-8, , 2776-02 ####[facility] LABCLIA [id number] [place] [address] [place] Protein [Mass/Vol] 6.2 g/dL Low 6.3-8.0 [facility] Comment on above: Order Comment: Speci men Type: BLOOD SPECIMENOrdering Facility: [facility] Address: [address] [place], [place] [address] Performed By: #### 2 4323-8, , 2776-02 ####[facility] LABCLIA [id number] [place] [address] [place] Sodium [Moles/Vol] 138 mmol/L Normal 136-144 [facility] Comment on above: Order Comment: Speci men Type: BLOOD SPECIMENOrdering Facility: [facility] Address: [address] [place], [place] [address] Performed By: #### 2 4323-8, , 2776-02 ####[facility] LABIA [id number] [place] [id number] [place] Urea nitrogen [Mass/Vol] 22 mg/dL Normal 9-24 [facility] Comment on above: Order Comment: Portia tay Type: BLOOD SPECIMENOrdering Facility: [facility] Address: [address] [place], [place] [address] Performed By: #### 2 4323-8, 25251-8, 2777-1 ####[facility] LABIA [id number] [place] [id number] [place] Magnesium SerPl-mCncon 08-30 Magnesium [Mass/Vol] 2.2 mg/dL Normal 1.7-2.3 [facility] Comment on above: Order Comment: Portia tay Type: BLOOD SPECIMENOrdering Facility: [facility] Address: [address] [place] [address] Performed By: #### 2 4323-8, 43577-8, 2777-1 ####[facility] [id number] [place] [id number] [place] PT panel Coag (PPP)on 2022 INR Coag (PPP) [Relative time] 1.1 {INR} Normal 0.9-1.3 [facility] Comment on above: Order Comment: Portia tay Type: BLOOD SPECIMENOrdering Facility: [facility] Address: [address] [place] [address] Result Comment: Mago min K Antagonist (VKA) Therapeutic Range: INR 2 to 3 (Target INR of 2.5) Note: For patients treated with VKA drugs, such as warfarin, the [place] [employer] 2012 Guideline recommends [...] Chest 2012, 141:7S-47S Daniel RA, et al. [facility] 2017, 70: 252-289 Performed By: #### 3 4528-0, 16377-8 ####[facility] LABIA [id number] [address] [place] PT Coag (PPP) [Time] 10.9 s Normal 9.7-13.0 [facility] Comment on above: Order Comment: Portia tay Type: BLOOD SPECIMENOrdering Facility: [facility] Address: [address] [place] [address] Performed By: #### 3 4528-0, 02812-7 ####[facility] [id number] [address] [place] Phosphate SerPl-mCncon 08-30 Phosphate [Mass/Vol] 3.2 mg/dL Normal 2.7-4.8 [facility] Comment on above: Order Comment: Portia tay Type: BLOOD SPECIMENOrdering Facility: [facility] Address: [address] [place] [address] Performed By: #### 2 4323-8, 60346-9, 2777-1 ####[facility] [id number] [address] [place] THERAPY NTon 08-30-2022 THERAPY NT HNO ID: [id number] Author: Jenna Duggan, PT Service: Physical Therapy Author Type: Physical Therapist Type: Therapy (PT/OT/Speech/Resp) Filed: 08/30/2022 3:12 PM Note Text: Physical Therapy Treatment SERVICE DATE: 08/30/2022 SERVICE TIME: 1337 to 1400 ROOM: [place] [address] Recommended Discharge Disposition: Home Anticipated Discharge Needs: [...] HLD, DM, recent STEMI (08/20/2022), transferred from [facility] for gross hematuria. Currently with 18Fr 3-way catheter on CBI. 08/28/22: s/p cystoscopy, clot evacuation, cystolitholapaxy, TURP. Admitted to SICU postoperatively due to pressor requirements and risk of hyponatremia due to length of TURP. 22Fr [address] hernandez placed introp, on traction and CBI. Reason for Hospital Admission: Pt 77y/o male transferred from [facility] for gross hematuria secondary to recent STEMI [...] Diagnosis: Reduced mobility-other Interventions Provided: Therapeutic Activity (75465), Gait Training (68767) Therapeutic Activity (80541) Treatment Minutes: 8 $ Therapeutic Activity (15713) Billed Units: 1 unit Gait Training (59875) Treatment Minutes: 15 $ Gait Training (31848) Billed Units: 1 unit Training AND Education Provided in: Benefits of In-Hospital Mobility, Bed Mobility, Energy Conservation, Equipment, Exercise Program, Expected Functional Level, Gait Pattern, Reduction of Deviations, Patient Exercise/Therapy Program Support Needs, Positioning, Precautions/Restrictions, Role of Physical Therapy, Standing Balance, Treatment Protocol, Transfers The Followin (more content not included)... Normal [facility] TYPE + SCREENon 08-30-2022 ABO O Normal [facility] Comment on above: Order Comment: Speci men Type: BLOOD SPECIMENOrdering Facility: [facility] Address: [address] [place] [address] Performed By: #### T SCR ####[facility]ANKCLIA [id number] HISTORICAL AB SCR STATUS Negative Normal [facility] Comment on above: Order Comment: Speci men Type: BLOOD SPECIMENOrdering Facility: [facility] Address: [address] [place] [address] Performed By: #### T SCR ####[facility] BLOOD BANKIA [id number] [address] Rh Nom (Bld) Positive Normal [facility] Comment on above: Order Comment: Speci men Type: BLOOD SPECIMENOrdering Facility: [facility] Address: [address] [place] [address] Performed By: #### T SCR ####[facility] BLOOD BANKIA [id number] [address] TYPE AND SCREEN EXPIRATION 09/02/2022 23:59 Normal [facility] Comment on above: Order Comment: Speci men Type: BLOOD SPECIMENOrdering Facility: [facility] Address: [address] [place] [address] Performed By: #### T SCR ####[facility] BLOOD BANKIA [id number] [address] aPTT PPPon 08-30-2022 aPTT Coag (PPP) [Time] 26.5 s Normal 23.0-32.4 Cl [facility] Comment on above: Order Comment: Speci men Type: BLOOD SPECIMENOrdering Facility: [facility] Address: [address] [place] [address] Performed By: #### 3 4528-0, 40693-9 ####[facility] LABCLIA [id number] [address] C Urineon 08-29-2022 Bacteria identified Cx [...] Locations R1: This test was performed at: [facility] [place], [address] [place] [address], [address] , , Normal [facility] Comment on above: Performed By: #### 2 506817, 89108140, 5723961, [id number], 7750451 #### [facility] [address] [place] [address] CBC panel Auto (Bld)on 08-29 Erythrocyte distribution width (RBC) [Ratio] 12.5 % Normal 11.5-15.0 [facility] Comment on above: Order Comment: Speci men Type: BLOOD SPECIMENOrdering Facility: [facility] Address: [address] [place] [address] Performed By: #### 5 8410-2 ####[facility] [id number] [place] [address] [place] Hematocrit (Bld) [Volume fraction] 30.7 % Low 39.0-51.0 [facility] Comment on above: Order Comment: Speci men Type: BLOOD SPECIMENOrdering Facility: [facility] Address: [address] [place] [address] Performed By: #### 5 8410-2 ####[facility] [id number] [place] [address] [place] Hemoglobin (Bld) [Mass/Vol] 10.6 g/dL Low 13.0-17.0 [facility] Comment on above: Order Comment: Speci men Type: BLOOD SPECIMENOrdering Facility: [facility] Address: [address] [place] [address] Performed By: #### 5 8410-2 ####[facility] [id number] [address] STATES [facility] MCH (RBC) [Entitic mass] 32.0 pg Normal 26.0-34.0 [facility] Comment on above: Order Comment: Speci men Type: BLOOD SPECIMENOrdering Facility: [facility] Address: [address] [place] [address] Performed By: #### 5 8410-2 ####[facility] [id number] [address] [place] MCHC (RBC) [Mass/Vol] 34.5 g/dL Normal 30.5-36.0 [facility] Comment on above: Order Comment: Speci men Type: BLOOD SPECIMENOrdering Facility: [facility] Address: [address] [place] [address] Performed By: #### 5 8410-2 ####[facility] [id number] [address] [place] MCV (RBC) [Entitic vol] 92.7 fL Normal 80.0-100.0 C [facility] Comment on above: Order Comment: Speci men Type: BLOOD SPECIMENOrdering Facility: [facility] Address: [address] [place] [address] Performed By: #### 5 8410-2 ####[facility] [id number] [address] Nucleated RBC (Bld) [#/Vol] 10*3/uL Normal <0.01 [facility] Comment on above: Order Comment: Speci men Type: BLOOD SPECIMENOrdering Facility: [facility] Address: [address] [place] [address] Performed By: #### 5 8410-2 ####[facility] [id number] [address] [address] [address] [place] Platelet mean volume (Bld) [Entitic vol] 11.6 fL Normal 9.0-12.7 [facility] Comment on above: Order Comment: Speci men Type: BLOOD SPECIMENOrdering Facility: [facility] Address: [address] [place] [address] Performed By: #### 5 8410-2 ####[facility] LABIA [id number] [place] [address] [place] Platelets (Bld) [#/Vol] 159 10*3/uL Normal 150-400 [facility] Comment on above: Order Comment: Speci men Type: BLOOD SPECIMENOrdering Facility: [facility] Address: [address] [place], [place] [address] Performed By: #### 5 8410-2 ####[facility] LABIA [id number] [place] [address] [place] RBC (Bld) [#/Vol] 3.31 10*6/uL Low 4.20-6.00 [facility] Comment on above: Order Comment: Speci men Type: BLOOD SPECIMENOrdering Facility: [facility] Address: [address] [place], [place] [address] Performed By: #### 5 8410-2 ####[facility] LABIA [id number] [place] [address] [place] WBC (Bld) [#/Vol] 13.57 10*3/uL High 3.70-11.00 [facility] Comment on above: Order Comment: Speci men Type: BLOOD SPECIMENOrdering Facility: [facility] Address: [address] [place], [place] [address] Performed By: #### 5 8410-2 ####[facility] LABIA [id number] [place] [address] [place] Erythrocyte distribution width (RBC) [Ratio] 12.5 % Normal 11.5-15.0 [facility] Comment on above: Order Comment: Speci men Type: BLOOD SPECIMENOrdering Facility: [facility] Address: [address] Performed By: #### 5 8410-2 ####[facility] LABCLIA [id number] [address] [place] Hematocrit (Bld) [Volume fraction] 25.7 % Low 39.0-51.0 [facility] Comment on above: Order Comment: Speci men Type: BLOOD SPECIMENOrdering Facility: [facility] Address: [address] [place] [address] Performed By: #### 5 8410-2 ####[facility] LABIA [id number] [address] [place] Hemoglobin (Bld) [Mass/Vol] 9.1 g/dL Low 13.0-17.0 [facility] Comment on above: Order Comment: Speci men Type: BLOOD SPECIMENOrdering Facility: [facility] Address: [address] [place] [address] Performed By: #### 5 8410-2 ####[facility] [id number] [address] [place] MCH (RBC) [Entitic mass] 32.4 pg Normal 26.0-34.0 [facility] Comment on above: Order Comment: Speci men Type: BLOOD SPECIMENOrdering Facility: [facility] Address: [address] Performed By: #### 5 8410-2 ####[facility] [id number] [address] [place] MCHC (RBC) [Mass/Vol] 35.4 g/dL Normal 30.5-36.0 [facility] Comment on above: Order Comment: Speci men Type: BLOOD SPECIMENOrdering Facility: [facility] Address: [address] [place] [address] Performed By: #### 5 8410-2 ####[facility] [id number] [address] MCV (RBC) [Entitic vol] 91.5 fL Normal 80.0-100.0 [facility] Comment on above: Order Comment: Speci men Type: BLOOD SPECIMENOrdering Facility: [facility] Address: [address] Performed By: #### 5 8410-2 ####[facility] [id number] [address] [place] Nucleated RBC (Bld) [#/Vol] 10*3/uL Normal <0.01 [facility] Comment on above: Order Comment: Speci men Type: BLOOD SPECIMENOrdering Facility: [facility] Address: [address] [place], [place] [address] Performed By: #### 5 8410-2 ####[facility] [id number] [place] [address] [place] Platelet mean volume (Bld) [Entitic vol] 11.1 fL Normal 9.0-12.7 [facility] Comment on above: Order Comment: Speci men Type: BLOOD SPECIMENOrdering Facility: [facility] Address: [address] [place], [place] [address] Performed By: #### 5 8410-2 ####[facility] [id number] [address] [place] Platelets (Bld) [#/Vol] 138 10*3/uL Low 150-400 [facility] Comment on above: Order Comment: Speci men Type: BLOOD SPECIMENOrdering Facility: [facility] Address: [address] [place] [address] Result Comment: No c lot detected.Results checked and verified. Performed By: #### 5 8410-2 ####[facility] [id number] [place] [address] [place] RBC (Bld) [#/Vol] 2.81 10*6/uL Low 4.20-6.00 [facility] Comment on above: Order Comment: Speci men Type: BLOOD SPECIMENOrdering Facility: [facility] Address: [address] [place] [address] Performed By: #### 5 8410-2 ####[facility] [id number] [place] [address] [place] [facility] WBC (Bld) [#/Vol] 11.86 10*3/uL High 3.70-11.00 [facility] Comment on above: Order Comment: Speci men Type: BLOOD SPECIMENOrdering Facility: [facility] Address: [address] [place] [address] Performed By: #### 5 8410-2 ####[facility] [id number] [address] OF [facility] CNPNon 08-29-2022 CNPN Telephone (UROFAYE) -- OLAF BRIONES ([id number]) 1945 M Date Time Provider Department 08/29/22 DAVID ANDERWS During your visit today, we recorded the [...] lipid microspheres 1.1 mg/mL 1.3 mL injection ([place]!) Problem List As Of Date 08/29/2022 Noted Resolved Hematuria [R31.9] 08/27/2022 [address] disease involving [facility]*08/27/2022 Adverse reaction to antiplatelet agent [T45.7X5*08/27/2022 Myocardial infarction (HCC) [I21.9] 08/27/2022 Primary hypertension [I10] 08/27/2022 Type 2 diabetes mellitus without complication, *08/27/2022 Leukocytosis [D72.829] 08/27/2022 Malnutrition of mild degree (HCC) [E44.1] 08/29/2022 Encounter Status:Closed by DAVID ANDREWS on 08/29/22 [facility] CONSULT PROGon 08-29-2022 CONSULT PROG HNO ID: [id number] Author: Rodriguez Miller APRN.[employer] Service: Cardiovascular Medicine Author Type: Nurse Practitioner Type: Consult Progress Note Filed: 08/29/2022 11:18 AM Note Text: [facility] CONSULT PROGRESS NOTE (Template ID [id number]) CONSULTING SERVICE: Cardiology: Consult Team PRIMARY SERVICE: [...] 08/29/2022 0700 Gross per 24 hour Intake 80120.5 ml Output 61504 ml Net 5853.5 ml TELEMETRY: SR IMAGING: [...] echocardiographic exam for comparison. Stent card from [employer] from 08/20/2022 DATA: Laboratory: Recent Labs 08/29/22 0323 08/29/22 0242 08/28/228 WBC 13.57* 11.86* 16.02* HB 10.6* 9.1* [...] (2000) and TURP (2006) who presented [facility] (more content not included)... Normal [facility] Comprehensive metabolic 2000 panelon 08-29-2022 Albumin [Mass/Vol] 4.2 g/dL Normal 3.9-4.9 [facility] Comment on above: Order Comment: Speci men Type: BLOOD SPECIMENOrdering Facility: [facility] Address: [address] [place] [address] Performed By: #### 2 4323-8 ####[facility]CL[facility] [id number] [place] [address] [place] ALP [Catalytic activity/Vol] 116 U/L High 38-113 [facility] Comment on above: Order Comment: Speci men Type: BLOOD SPECIMENOrdering Facility: [facility] Address: [address] [place] [address] Performed By: #### 2 4323-8 ####[facility]CL[facility] [id number] [place] [address] [place] ALT [Catalytic activity/Vol] 20 U/L Normal 10-54 [facility] Comment on above: Order Comment: Speci men Type: BLOOD SPECIMENOrdering Facility: [facility] Address: [address] [address] Performed By: #### 2 4323-8 ####[facility]CLIA [id number] [place] [address] [place] Anion gap [Moles/Vol] 13 mmol/L Normal 9-18 [facility] Comment on above: Order Comment: Speci men Type: BLOOD SPECIMENOrdering Facility: [facility] Address: [address] [place] [address] Performed By: #### 2 4323-8 ####[facility]CL[facility] [id number] [place] [address] [place] AST [Catalytic activity/Vol] 19 U/L Normal 14-40 [facility] Comment on above: Order Comment: Speci men Type: BLOOD SPECIMENOrdering Facility: [facility] Address: [address] [place] [address] Performed By: #### 2 4323-8 ####[facility]CL[facility] [id number] [place] [address] [place] Bilirubin [Mass/Vol] 0.4 mg/dL Normal 0.2-1.3 [facility] Comment on above: Order Comment: Speci men Type: BLOOD SPECIMENOrdering Facility: [facility] Address: [address] [place], [place] [address] Performed By: #### 2 4323-8 ####[facility]CL[facility] [id number] [place] [address] [place] Calcium [Mass/Vol] 9.4 mg/dL Normal 8.5-10.2 [facility] Comment on above: Order Comment: Speci men Type: BLOOD SPECIMENOrdering Facility: [facility] Address: [address] [place], [place] [address] Performed By: #### 2 4323-8 ####[facility]CL[facility] [id number] [place] [address] [place] Chloride [Moles/Vol] 102 mmol/L Normal 97-105 [facility] Comment on above: Order Comment: Speci men Type: BLOOD SPECIMENOrdering Facility: [facility] Address: [address] [address] Performed By: #### 2 4323-8 ####[facility]CL[facility] [id number] [place] [address] [place] CO2 [Moles/Vol] 25 mmol/L Normal 22-30 [facility] Comment on above: Order Comment: Speci men Type: BLOOD SPECIMENOrdering Facility: [facility] Address: [address] [address] Performed By: #### 2 4323-8 ####[facility] [id number] [place] [address] [place] Creatinine [Mass/Vol] 0.86 mg/dL Normal 0.73-1.22 [facility] Comment on above: Order Comment: Speci men Type: BLOOD SPECIMENOrdering Facility: [facility] Address: [address] [place] [address] Performed By: #### 2 4323-8 ####[facility] [id number] [address] [place] ESTIMATED GLOMERULAR FILTRATION RATE 89 mL/min/1.73m??? Normal >=60 [facility] Comment on above: Order Comment: Speci men Type: BLOOD SPECIMENOrdering Facility: [facility] Address: [address] [place] [address] Result Comment: Mariaelena mated Glomerular Filtration Rate [...] actual GFR. Performed By: #### 2 4323-8 ####[facility]CL[facility] [id number] [place] [address] [place] Glucose [Mass/Vol] 166 mg/dL High 74-99 [facility] Comment on above: Order Comment: Speci men Type: BLOOD SPECIMENOrdering Facility: [facility] Address: [address] [place] [address] Result Comment: The [place] Diabetes Association (ADA) provides guidance for cutoff [...] Standards of Medical Care in Diabetes 2016, [place] Diabetes Association. Diabetes Care. 2016.39(Suppl 1). Performed By: #### 2 4323-8 ####[facility]CL[facility] [id number] [place] [address] [place] Potassium [Moles/Vol] 3.9 mmol/L Normal 3.7-5.1 [facility] Comment on above: Order Comment: Speci men Type: BLOOD SPECIMENOrdering Facility: [facility] Address: [address] [place] [address] Performed By: #### 2 4323-8 ####[facility]CL[facility] [id number] [place] [address] [place] Protein [Mass/Vol] 6.6 g/dL Normal 6.3-8.0 [facility] Comment on above: Order Comment: Speci men Type: BLOOD SPECIMENOrdering Facility: [facility] Address: [address] [place] [address] Performed By: #### 2 4323-8 ####[facility]CL[facility] [id number] [place] [address] [place] Sodium [Moles/Vol] 140 mmol/L Normal 136-144 [facility] Comment on above: Order Comment: Speci men Type: BLOOD SPECIMENOrdering Facility: [facility] Address: [address] Performed By: #### 2 4323-8 ####[facility]CL[facility] [id number] [place] [address] [place] Urea nitrogen [Mass/Vol] 21 mg/dL Normal 9-24 [facility] Comment on above: Order Comment: Speci men Type: BLOOD SPECIMENOrdering Facility: [facility] Address: [address] Performed By: #### 2 4323-8 ####[facility]CL[facility] [id number] [place] [address] [place] Albumin [Mass/Vol] 3.6 g/dL Low 3.9-4.9 [facility] Comment on above: Order Comment: Speci men Type: BLOOD SPECIMENOrdering Facility: [facility] Address: [address] Performed By: #### 2 4323-8 ####[facility]CL[facility] [id number] [place] [address] [place] ALP [Catalytic activity/Vol] 96 U/L Normal 38-113 [facility] Comment on above: Order Comment: Speci men Type: BLOOD SPECIMENOrdering Facility: [facility] Address: [address] Performed By: #### 2 4323-8 ####[facility]CL[facility] [id number] [place] [address] [place] ALT [Catalytic activity/Vol] 18 U/L Normal 10-54 [facility] Comment on above: Order Comment: Speci men Type: BLOOD SPECIMENOrdering Facility: [facility] Address: [address] Performed By: #### 2 4323-8 ####[facility]CL[facility] [id number] [place] [address] [place] Anion gap [Moles/Vol] 10 mmol/L Normal 9-18 [facility] Comment on above: Order Comment: Speci men Type: BLOOD SPECIMENOrdering Facility: [facility] Address: [address] [place] [address] Performed By: #### 2 4323-8 ####[facility]CL[facility] [id number] [place] [address] [place] AST [Catalytic activity/Vol] 16 U/L Normal 14-40 [facility] Comment on above: Order Comment: Speci men Type: BLOOD SPECIMENOrdering Facility: [facility] Address: [address] [place] [address] Performed By: #### 2 4323-8 ####[facility]CL[facility] [id number] [place] [address] [place] Bilirubin [Mass/Vol] 0.5 mg/dL Normal 0.2-1.3 [facility] Comment on above: Order Comment: Speci men Type: BLOOD SPECIMENOrdering Facility: [facility] Address: [address] [place] [address] Performed By: #### 2 4323-8 ####[facility]CLIA [id number] [place] [address] [place] Calcium [Mass/Vol] 8.7 mg/dL Normal 8.5-10.2 [facility] Comment on above: Order Comment: Speci men Type: BLOOD SPECIMENOrdering Facility: [facility] Address: [address] [place], [place] [address] Performed By: #### 2 4323-8 ####[facility]CLIA [id number] [place] [address] [place] Chloride [Moles/Vol] 105 mmol/L Normal 97-105 [facility] Comment on above: Order Comment: Speci men Type: BLOOD SPECIMENOrdering Facility: [facility] Address: [address] [address] Performed By: #### 2 4323-8 ####[facility]CLIA [id number] [address] [place] [facility] CO2 [Moles/Vol] 24 mmol/L Normal 22-30 [facility] Comment on above: Order Comment: Speci men Type: BLOOD SPECIMENOrdering Facility: [facility] Address: [address] [address] Performed By: #### 2 4323-8 ####[facility] [id number] [address] Creatinine [Mass/Vol] 0.78 mg/dL Normal 0.73-1.22 [facility] Comment on above: Order Comment: Speci men Type: BLOOD SPECIMENOrdering Facility: [facility] Address: [address] [place] [address] Performed By: #### 2 4323-8 ####[facility] [id number] [address] ESTIMATED GLOMERULAR FILTRATION RATE 92 mL/min/1.73m??? Normal >=60 [facility] Comment on above: Order Comment: Speci men Type: BLOOD SPECIMENOrdering Facility: [facility] Address: [address] [place] [address] Result Comment: Mariaelena mated Glomerular Filtration Rate [...] actual GFR. Performed By: #### 2 4323-8 ####[facility]CLIA [id number] [id number] [address] [place] Glucose [Mass/Vol] 217 mg/dL High 74-99 [facility] Comment on above: Order Comment: Speci men Type: BLOOD SPECIMENOrdering Facility: [facility] Address: [address] [place] [address] Result Comment: The [place] Diabetes Association (ADA) provides guidance for cutoff [...] Standards of Medical Care in Diabetes 2016, [place] Diabetes Association. Diabetes Care. 2016.39(Suppl 1). Performed By: #### 2 4323-8 ####[facility]CL[facility] [id number] [place] [address] [place] Potassium [Moles/Vol] 3.9 mmol/L Normal 3.7-5.1 [facility] Comment on above: Order Comment: Janiei men Type: BLOOD SPECIMENOrdering Facility: [facility] Address: [address] [place] [address] Performed By: #### 2 4323-8 ####[facility]CL[facility] [id number] [place] [address] [place] Protein [Mass/Vol] 5.6 g/dL Low 6.3-8.0 [facility] Comment on above: Order Comment: Speci men Type: BLOOD SPECIMENOrdering Facility: [facility] Address: [address] [place] [address] Performed By: #### 2 4323-8 ####[facility]CLIA [id number] [place] [address] [place] Sodium [Moles/Vol] 139 mmol/L Normal 136-144 [facility] Comment on above: Order Comment: Speci men Type: BLOOD SPECIMENOrdering Facility: [facility] Address: [address] [place], [place] [address] Performed By: #### 2 4323-8 ####[facility]CLIA [id number] [place] [address] [place] Urea nitrogen [Mass/Vol] 14 mg/dL Normal 9-24 [facility] Comment on above: Order Comment: Speci men Type: BLOOD SPECIMENOrdering Facility: [facility] Address: [address] [address] Performed By: #### 2 4323-8 ####[facility] [id number] [place] [address] [place] Albumin [Mass/Vol] 3.6 g/dL Low 3.9-4.9 [facility] Comment on above: Order Comment: Speci men Type: BLOOD SPECIMENOrdering Facility: [facility] Address: [address] [place], [place] [address] Performed By: #### 2 777-1, 52246-6, 52986-3 ####[facility] [id number] [place] [address] [place] ALP [Catalytic activity/Vol] 98 U/L Normal 38-113 [facility] Comment on above: Order Comment: Speci men Type: BLOOD SPECIMENOrdering Facility: [facility] Address: [address] Performed By: #### 2 777-1, 32434-4, 36602-1 ####[facility] [id number] [place] [address] [place] ALT [Catalytic activity/Vol] 19 U/L Normal 10-54 [facility] Comment on above: Order Comment: Speci men Type: BLOOD SPECIMENOrdering Facility: [facility] Address: [address] Performed By: #### 2 777-1, 97681-4, ####[facility] [id number] [place] [address] [place] Anion gap [Moles/Vol] 12 mmol/L Normal 9-18 [facility] Comment on above: Order Comment: Speci men Type: BLOOD SPECIMENOrdering Facility: [facility] Address: [address] [address] Performed By: #### 2 777-1, 09440-4, ####[facility] [id number] [place] [address] [place] AST [Catalytic activity/Vol] 18 U/L Normal 14-40 [facility] Comment on above: Order Comment: Speci men Type: BLOOD SPECIMENOrdering Facility: [facility] Address: [address] [place] [address] Performed By: #### 2 777-1, 60497-5, ####[facility] [id number] [place] [address] [place] Bilirubin [Mass/Vol] 0.7 mg/dL Normal 0.2-1.3 [facility] Comment on above: Order Comment: Speci men Type: BLOOD SPECIMENOrdering Facility: [facility] Address: [address] [place], [place] [address] Performed By: #### 2 777-1, 43692-1, ####[facility] [id number] [place] [address] [place] Calcium [Mass/Vol] 8.3 mg/dL Low 8.5-10.2 [facility] Comment on above: Order Comment: Speci men Type: BLOOD SPECIMENOrdering Facility: [facility] Address: [address] [place], [place] [address] Performed By: #### 2 777-1, 00859-8, ####[facility] [id number] [place] [id number] [place] Chloride [Moles/Vol] 102 mmol/L Normal 97-105 [facility] Comment on above: Order Comment: Speci men Type: BLOOD SPECIMENOrdering Facility: [facility] Address: [address] [id number] Performed By: #### 2 777-1, 04895-6, ####[facility] [id number] [place] [address] [place] CO2 [Moles/Vol] 22 mmol/L Normal 22-30 [facility] Comment on above: Order Comment: Speci men Type: BLOOD SPECIMENOrdering Facility: [facility] Address: [address] [place], [place] [address] Performed By: #### 2 777-1, 51914-8, ####[facility] [id number] [place] [address] [place] Creatinine [Mass/Vol] 0.69 mg/dL Low 0.73-1.22 [facility] Comment on above: Order Comment: Speci men Type: BLOOD SPECIMENOrdering Facility: [facility] Address: [address] [place], [place] [address] Performed By: #### 2 777-1, 78105-5, ####[facility] [id number] [place] [id number] [place] ESTIMATED GLOMERULAR FILTRATION RATE 95 mL/min/1.73m??? Normal >=60 [facility] Comment on above: Order Comment: Speci men Type: BLOOD SPECIMENOrdering Facility: [facility] Address: [address] [place] [address] Result Comment: Mariaelena mated Glomerular Filtration Rate [...] GFR. Performed By: #### 2 777-1, , ####[facility]CLIA [id number] [place] [address] [place] Glucose [Mass/Vol] 202 mg/dL High 74-99 [facility] Comment on above: Order Comment: Portia tay Type: BLOOD SPECIMENOrdering Facility: [facility] Address: [address] [address] Result Comment: The [place] Diabetes Association (ADA) provides guidance for cutoff [...] Standards of Medical Care in Diabetes 2016, [place] Diabetes Association. Diabetes Care. 2016.39(Suppl 1). Performed By: #### 2 777-1, , ####[facility] [id number] [place] [address] [place] Potassium [Moles/Vol] 4.1 mmol/L Normal 3.7-5.1 [facility] Comment on above: Order Comment: Portia tay Type: BLOOD SPECIMENOrdering Facility: [facility] Address: [address] [id number] Performed By: #### 2 777-1, 10916-7, ####[facility]CL[facility] [id number] [place] [address] [place] Protein [Mass/Vol] 5.5 g/dL Low 6.3-8.0 [facility] Comment on above: Order Comment: Speci men Type: BLOOD SPECIMENOrdering Facility: [facility] Address: [address] [place] [address] Performed By: #### 2 777-1, 76103-2, ####[facility]CL[facility] [id number] [place] [address] [place] Sodium [Moles/Vol] 136 mmol/L Normal 136-144 [facility] Comment on above: Order Comment: Speci men Type: BLOOD SPECIMENOrdering Facility: [facility] Address: [address] [place] [address] Performed By: #### 2 777-1, 90829-9, ####[facility]CL[facility] [id number] [place] [address] [place] Urea nitrogen [Mass/Vol] 14 mg/dL Normal 9-24 [facility] Comment on above: Order Comment: Speci men Type: BLOOD SPECIMENOrdering Facility: [facility] Address: [address] [place] [address] Performed By: #### 2 777-1, 05770-7, ####[facility]CL[facility] [id number] [place] [address] [place] Albumin [Mass/Vol] 3.0 g/dL Low 3.9-4.9 [facility] Comment on above: Order Comment: Speci men Type: BLOOD SPECIMENOrdering Facility: [facility] Address: [address] [place] [address] Result Comment: Resu lt rechecked. Performed By: #### 1 9123-9, 2777-1, 32977-7 ####[facility]CL[facility] [id number] [place] [address] [place] ALP [Catalytic activity/Vol] 88 U/L Normal 38-113 [facility] Comment on above: Order Comment: Speci men Type: BLOOD SPECIMENOrdering Facility: [facility] Address: [address] [address] Performed By: #### 1 9123-9, 2777-1, 29566-2 ####[facility]CL[facility] [id number] [place] [address] [place] ALT [Catalytic activity/Vol] 15 U/L Normal 10-54 [facility] Comment on above: Order Comment: Speci men Type: BLOOD SPECIMENOrdering Facility: [facility] Address: [address] [place] [address] Performed By: #### 1 9123-9, 27708-18, 63828-8 ####[facility]CL[facility] [id number] [place] [address] [place] Anion gap [Moles/Vol] 14 mmol/L Normal 9-18 [facility] Comment on above: Order Comment: Speci men Type: BLOOD SPECIMENOrdering Facility: [facility] Address: [address] [place] [address] Performed By: #### 1 9123-9, 27708-18, 96034-4 ####[facility] LABCLIA [id number] [place] [address] [place] AST [Catalytic activity/Vol] 16 U/L Normal 14-40 [facility] Comment on above: Order Comment: Speci men Type: BLOOD SPECIMENOrdering Facility: [facility] Address: [address] [place] [address] Performed By: #### 1 9123-9, 277-, 18941-5 ####[facility] LABCLIA [id number] [place] [address] [place] Bilirubin [Mass/Vol] 0.6 mg/dL Normal 0.2-1.3 [facility] Comment on above: Order Comment: Speci men Type: BLOOD SPECIMENOrdering Facility: [facility] Address: [place] [address] Performed By: #### 1 9123-9, 2776-02, ####[facility] LABCLIA [id number] [place] [address] [place] Calcium [Mass/Vol] 8.4 mg/dL Low 8.5-10.2 [facility] Comment on above: Order Comment: Speci men Type: BLOOD SPECIMENOrdering Facility: [facility] Address: [place] [address] Performed By: #### 1 9123-9, 2776-02, ####[facility] LABCLIA [id number] [place] [address] [place] Chloride [Moles/Vol] 103 mmol/L Normal 97-105 [facility] Comment on above: Order Comment: Speci men Type: BLOOD SPECIMENOrdering Facility: [facility] Address: [place] [address] Performed By: #### 1 9123-9, 2776-02, ####[facility] LABCLIA [id number] [place] [address] [place] CO2 [Moles/Vol] 20 mmol/L Low 22-30 [facility] Comment on above: Order Comment: Speci men Type: BLOOD SPECIMENOrdering Facility: [facility] Address: [place] [address] Performed By: #### 1 9123-9, 2776-02, ####[facility] LABCLIA [id number] [place] [id number] [place] Creatinine [Mass/Vol] 0.64 mg/dL Low 0.73-1.22 [facility] Comment on above: Order Comment: Portia tay Type: BLOOD SPECIMENOrdering Facility: [facility] Address: [address] [place] [id number] Performed By: #### 1 9123-9, 2777-1, 54720-1 ####[facility] LABCLIA [id number] [place] [address] [place] ESTIMATED GLOMERULAR FILTRATION RATE 98 mL/min/1.73m??? Normal >=60 [facility] Comment on above: Order Comment: Portia tay Type: BLOOD SPECIMENOrdering Facility: [facility] Address: [address] [place] [place] [address] Result Comment: Mariaelena mated Glomerular Filtration Rate [...] actual GFR. Performed By: #### 1 9123-9, 2777-, 18814-9 ####[facility] LABCLIA [id number] [place] [address] [place] Glucose [Mass/Vol] 186 mg/dL High 74-99 [facility] Comment on above: Order Comment: Portia tay Type: BLOOD SPECIMENOrdering Facility: [facility] Address: [address] Result Comment: The [place] Diabetes Association (ADA) provides guidance for cutoff [...] Standards of Medical Care in Diabetes 2016, [place] Diabetes Association. Diabetes Care. 2016.39(Suppl 1). Performed By: #### 1 9123-9, 2777-, 62504-8 ####[facility] LABCLIA [id number] [address] [address] [place] Potassium [Moles/Vol] 4.0 mmol/L Normal 3.7-5.1 [facility] Comment on above: Order Comment: Speci men Type: BLOOD SPECIMENOrdering Facility: [facility] Address: [address] Performed By: #### 1 9123-9, 2777, 92523-4 ####[facility] LABIA [id number] [place] [address] [place] Protein [Mass/Vol] 5.1 g/dL Low 6.3-8.0 [facility] Comment on above: Order Comment: Speci men Type: BLOOD SPECIMENOrdering Facility: [facility] Address: [address] [place] [address] Performed By: #### 1 9123-9, 2776-02, ####[facility] LABIA [id number] [place] [address] [place] Sodium [Moles/Vol] 137 mmol/L Normal 136-144 [facility] Comment on above: Order Comment: Speci men Type: BLOOD SPECIMENOrdering Facility: [facility] Address: [address] [place] [address] Performed By: #### 1 9123-9, 27708-18, 81187-5 ####[facility] LABIA [id number] [address] [address] [place] Urea nitrogen [Mass/Vol] 12 mg/dL Normal 9-24 [facility] Comment on above: Order Comment: Speci men Type: BLOOD SPECIMENOrdering Facility: [facility] Address: [address] [place], [place] [address] Performed By: #### 1 9123-9, 2777-1, 71769-1 ####[facility] LABIA [id number] [place] [address] [place] ECG COMPLETEon 08-29-2022 ECG COMPLETE Ventricular Rate : 7 0 BPM Atrial Rate : 70 BPM P-R Interval : 186 ms QRS Duration : 102 ms Q-T Interval : 454 ms QTC Calculation(Bazett) : 490 ms Calculated P [place] : 44 degrees Calculated R [place] : -26 degrees Calculated T [place] : -27 degrees SINUS RHYTHM WITH PREMATURE ATRIAL COMPLEXES NONSPECIFIC ST ABNORMALITY ABNORMAL ECG Confirmed by ERICK STEWARD MD ([id number]) on 08/31/2022 7:45:00 AM NAME : OLAF BRIONES PID : [id number] : 1945 Gender : Male Race : Unknown ORD : [id number] Procedure Date : Aug 29 2022 00:07:53 Edit Date : Aug 31 2022 07:45:03 Diagnosis: SINUS RHYTHM WITH PREMATURE ATRIAL COMPLEXES NONSPECIFIC ST ABNORMALITY ABNORMAL ECG Confirmed by ERICK STEWARD MD (65) on 08/31/2022 7:45:00 AM Test Reason : Post-OP Location : 154 : [facility]54[facility] Overread By : ERICK STEWARD MD Edited By : ERICK STEWARD MD Referred By : , Acquired by : NAHOMI RINALDI [facility] Magnesium SerPl-mCncon 08-29 Magnesium [Mass/Vol] 2.1 mg/dL Normal 1.7-2.3 [facility] Comment on above: Order Comment: Speci men Type: BLOOD SPECIMENOrdering Facility: [facility] Address: [address] [place], [place] [address] Performed By: #### 2 777-1, 15472-4, 60595-3 ####[facility] LABIA [id number] [place] [address] [place] Magnesium [Mass/Vol] 1.8 mg/dL Normal 1.7-2.3 [facility] Comment on above: Order Comment: Speci men Type: BLOOD SPECIMENOrdering Facility: [facility] Address: [place] [address] Performed By: #### 1 9123-9, 2777-1, 16350-7 ####[facility] LABCLIA [id number] [place] [address] [place] PT panel Coag (PPP)on 2022 INR Coag (PPP) [Relative time] 1.0 {INR} Normal 0.9-1.3 [facility] Comment on above: Order Comment: Portia tay Type: BLOOD SPECIMENOrdering Facility: [facility] Address: [place] [address] Result Comment: Mago min K Antagonist (VKA) Therapeutic Range: INR 2 to 3 (Target INR of 2.5) Note: For patients treated with VKA drugs, such as warfarin, the [place] College [employer] 2012 Guideline recommends [...] Chest 2012, 141:7S-47S Daniel RA, et al. [facility] 2017, 70: 252-289 Performed By: #### 3 4528-0, 98867-7 ####[facility] LABIA [id number] [place] [address] [place] PT Coag (PPP) [Time] 10.7 s Normal 9.7-13.0 [facility] Comment on above: Order Comment: Portia tay Type: BLOOD SPECIMENOrdering Facility: [facility] Address: [place] [address] Performed By: #### 3 4528-0, 27682-0 ####[facility] LABCLIA [id number] [address] STATES OF [facility] INR Coag (PPP) [Relative time] 1.1 {INR} Normal 0.9-1.3 [facility] Comment on above: Order Comment: Speci men Type: BLOOD SPECIMENOrdering Facility: [facility] Address: [address] [place] [address] Result Comment: Mago min K Antagonist (VKA) Therapeutic Range: INR 2 to 3 (Target INR of 2.5) Note: For patients treated with VKA drugs, such as warfarin, the [place] [employer] Chest [employer]icians 2012 Guideline recommends [...] GH, et al. Chest 2012, 141:7S-47S Daniel RA et al. [facility] 2017, 70: 252-289 Performed By: #### 3 4528-0, 75375-1 ####[facility] LABCLIA [id number] [place] [address] [place] PT Coag (PPP) [Time] 11.2 s Normal 9.7-13.0 [facility] Comment on above: Order Comment: Specherbie men Type: BLOOD SPECIMENOrdering Facility: [facility] Address: [address] [place] [id number] Performed By: #### 3 4528-0, 75730-1 ####[facility] LABCLIA [id number] [address] [place] Phosphate SerPl-mCncon 08-29 Phosphate [Mass/Vol] 4.9 mg/dL High 2.7-4.8 [facility] Comment on above: Order Comment: Speci men Type: BLOOD SPECIMENOrdering Facility: [facility] Address: [address] [place], [place] [address] Performed By: #### 2 777-1, 23995-4, 81655-7 ####[facility] LABCLIA [id number] [address] OF [place] Phosphate [Mass/Vol] 4.2 mg/dL Normal 2.7-4.8 [facility] Comment on above: Order Comment: Speci men Type: BLOOD SPECIMENOrdering Facility: [facility] Address: [address] [place] [address] Performed By: #### 1 9123-9, 2777-1, 96963-5 ####[facility] LABCLIA [id number] [address] [place] THERAPY NTon 08-29-2022 THERAPY NT HNO ID: [id number] Author: Jenna Duggan, PT Service: Physical Therapy Author Type: Physical Therapist Type: Therapy (PT/OT/Speech/Resp) Filed: 08/29/2022 2:51 PM Note Text: Physical Therapy Evaluation SERVICE DATE: 08/29/2022 SERVICE TIME: 1403 to 1438 ROOM: [place] [address] Recommended Discharge Disposition: Home Anticipated Discharge Needs: [...] HLD, DM, recent STEMI (08/20/2022), transferred from [facility] for gross hematuria. Currently with 18Fr 3-way catheter on CBI. 08/28/22: s/p cystoscopy, clot evacuation, cystolitholapaxy, TURP. Admitted to SICU postoperatively due to pressor requirements and risk of hyponatremia due to length of TURP. 22Fr [address] hernandez placed introp, on traction and CBI. Reason for Hospital Admission: Pt 77y/o male transferred from [facility] for gross hematuria secondary to recent STEMI [...] General Deviations/Observations: Diana decreased, Flexed trunk posture [facility]: 7: Walk 25 feet or more Learning/Educational [...] Reduced mobility-other Interventions Provided: Evaluation, Therapeutic Activity (45621), Gait Training (96711) $ Evaluation-Moderate (56492) Billed Units: 1 unit Therapeutic Activity (30490) Treatment Minutes: 7 $ Therapeutic Activity (46597) Billed Units: 0 units Gait Training (89852) Treatment Minutes: 13 $ Gait Training (43753) Billed Units: 1 unit Training AND Education Provided in: Benefits of In-Hospital Mobility, Bed Mobility, Energy Conservation, Equipment, Exer (more content not included)... Normal [facility] THERAPY NT HNO ID: [id number] Author: Alia Smith OTR/L Service: Occupational Therapy Author Type: Occupational Therapist Type: Therapy (PT/OT/Speech/Resp) Filed: 08/29/2022 11:06 AM Note Text: Occupational Therapy Evaluation SERVICE DATE: 08/29/2022 SERVICE TIME: 849 to 920 ROOM: [place] [address] Recommended Discharge Disposition: Home Anticipated Discharge Needs: [...] HLD, DM, recent STEMI (08/20/2022), transferred from [facility] for gross hematuria. Currently with 18Fr 3-way catheter on CBI. 08/28/22: s/p cystoscopy, clot evacuation, cystolitholapaxy, TURP. Admitted to SICU postoperatively due to pressor requirements and risk of hyponatremia due to length of TURP. 22Fr [address] hernandez placed introp, on traction and CBI. 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 Normal [facility] aPTT PPPon 08-29-2022 aPTT Coag (PPP) [Time] 21.0 s Low 23.0-32.4 [facility] Comment on above: Order Comment: Speci men Type: BLOOD SPECIMENOrdering Facility: [facility] Address: [address] [place] [id number] Performed By: #### 3 4528-0, 01532-1 ####[facility] LABCLIA [id number] [address] aPTT Coag (PPP) [Time] 26.1 s Normal 23.0-32.4 [facility] Comment on above: Order Comment: Speci men Type: BLOOD SPECIMENOrdering Facility: [facility] Address: [address] [place] [address] Performed By: #### 3 4528-0, 95782-1 ####[facility] LABCLIA [id number] [place] [address] [place] ANES POSTPROC EVALon 023 ANES POSTPROC EVAL HNO ID: [id number] Author: Michelle Day MD Service: ? Author Type: Anesthesiologist Type: Anesthesia Postprocedure Evaluation Filed: 08/28/2022 8:38 PM Note Text: POST ANESTHESIA EVALUATION NOTE : 1945 Procedure Summary Date: 08/28/22 [address]hesia Start: 1752 Anesthesia Stop: 2030 Procedure: [...] August 28, 2022 TIME: 8:37 PM CSN: [id number] Normal [facility] ANES PRE-OPon 08-28-2022 ANES PRE-OP HNO ID: [id number] Author: Weston Avila MD Service: ? Author Type: Anesthesiologist Type: Anesthesia Preprocedure Evaluation Filed: 08/28/2022 6:10 PM Note Text: ANESTHESIOLOGY DAY OF SURGERY NOTE : 1945 Procedure Information Anesthesia Start Date/Time: 08/28/221752 Procedure: CYSTOURETHROSCOPY FULGURATION BLADDER (Bladder) Location: [facility] Surgeons: David Anrdews MD Estimated body mass index is 25.23 kg/m? as calculated from the following: Height as of this encounter: 173 cm (5' 8.11 ). Weight as of this encounter: 75.5 kg (166 lb 7.2 oz). Most recent hematocrit and potassium results: Hematocrit 32.6 08/28/2022 Potassium 4.0 08/28/2022 Relevant Problems CARDIO (+) Coronary artery disease involving [facility] coronary artery of [facility] heart without angina pectoris (+) Myocardial infarction [...] and consent discussed: yes. Patient / Responsible Alliance Party agrees to proceed: yes Patient / [...] as nee (more content not included)... Normal [facility] ANES PREOPon 08-28-2022 ANES PREOP HNO ID: [id number] Author: Jaycee Bernard MD Service: Anesthesiology Author [...] (166 lb 7.2 oz) REVIEW OF SYSTEMS: AGRICULTURAL CHEMICALS INSPECTOR: no history of AGRICULTURAL CHEMICALS INSPECTOR disease RESP: no history of pulmonary disease, no smoking history CARD: history of HTN on norvasc and coreg; and history of past GA s/p JUHI (08/20/22); currently no chest pain [...] done. L (more content not included)... Normal [facility] BRIEF OP NOTon 08-28-2022 BRIEF OP NOT HNO ID: [id number] Author: Gt Mcgowan MD Service: Urology Author Type: Resident Type: Brief Op Note Filed: 08/28/2022 7:50 PM Note Text: BRIEF OP NOTE LOG ID: [id number] Surgery/Procedure Date: 08/28/2022 Incision/Procedure Start Time: 6:17 PM Incision Close/Procedure End Time: Surgeon(s)/Proceduralist(s ) and Cardiac/Vascular Sonographer(s): Surgeon(s) and Role: * David Andrews MD [...] 2022 TIME: 7:48 PM PAGER/CONTACT #: p [phone] Post-op Plan: To SICU Normal [facility] Basic metabolic 2000 panelon 08-28-2022 Anion gap [Moles/Vol] 9 mmol/L Normal 9-18 [facility] Comment on above: Order Comment: Speci men Type: BLOOD SPECIMENOrdering Facility: [facility] Address: [address] [place] [address] Performed By: #### 2 4321-2 ####[facility] [id number] [place] [address] [place] Calcium [Mass/Vol] 8.8 mg/dL Normal 8.5-10.2 [facility] Comment on above: Order Comment: Speci men Type: BLOOD SPECIMENOrdering Facility: [facility] Address: [address] [place] [place] [address] Performed By: #### 2 4321-2 ####[facility] LABIA [id number] [place] [address] [place] Chloride [Moles/Vol] 108 mmol/L High 97-105 [facility] Comment on above: Order Comment: Speci men Type: BLOOD SPECIMENOrdering Facility: [facility] Address: [address] [place] [place] [address] Performed By: #### 2 4321-2 ####[facility] LABCLIA [id number] [place] [address] [place] CO2 [Moles/Vol] 24 mmol/L Normal 22-30 [facility] Comment on above: Order Comment: Speci men Type: BLOOD SPECIMENOrdering Facility: [facility] Address: [address] [place] [place] [address] Performed By: #### 2 4321-2 ####[facility] LABIA [id number] [place] [address] [place] Creatinine [Mass/Vol] 0.79 mg/dL Normal 0.73-1.22 [facility] Comment on above: Order Comment: Speci men Type: BLOOD SPECIMENOrdering Facility: [facility] Address: [address] [place] [address] Performed By: #### 2 4321-2 ####[facility] LABIA [id number] [place] [address] [place] ESTIMATED GLOMERULAR FILTRATION RATE 91 mL/min/1.73m??? Normal >=60 [facility] Comment on above: Order Comment: Speci men Type: BLOOD SPECIMENOrdering Facility: [facility] Address: [address] [place] [address] Result Comment: Mariaelena mated Glomerular Filtration Rate [...] actual GFR. Performed By: #### 2 4321-2 ####[facility] LABCLIA [id number] [place] [address] [place] Glucose [Mass/Vol] 137 mg/dL High 74-99 [facility] Comment on above: Order Comment: Speci men Type: BLOOD SPECIMENOrdering Facility: [facility] Address: [address] [place] [address] Result Comment: The [place] Diabetes Association (ADA) provides guidance for cutoff [...] Standards of Medical Care in Diabetes 2016, [place] Diabetes Association. Diabetes Care. 2016.39(Suppl 1). Performed By: #### 2 4321-2 ####[facility] LABCLIA [id number] [place] [address] [place] Potassium [Moles/Vol] 4.0 mmol/L Normal 3.7-5.1 [facility] Comment on above: Order Comment: Speci men Type: BLOOD SPECIMENOrdering Facility: [facility] Address: [address] [place] [address] Performed By: #### 2 4321-2 ####[facility] LABCLIA [id number] [place] [address] [place] Sodium [Moles/Vol] 141 mmol/L Normal 136-144 [facility] Comment on above: Order Comment: Speci men Type: BLOOD SPECIMENOrdering Facility: [facility] Address: [address] [place] [address] Performed By: #### 2 4321-2 ####[facility] LABCLIA [id number] [place] [address] [place] Urea nitrogen [Mass/Vol] 18 mg/dL Normal 9-24 [facility] Comment on above: Order Comment: Speci men Type: BLOOD SPECIMENOrdering Facility: [facility] Address: [address] [place] [address] Performed By: #### 2 4321-2 ####[facility] LABIA [id number] [address] [place] CALCULI ANALYSISon 3 Calculus analysis [Interp] Normal [facility] Comment on above: Order Comment: Speci men Type: CALCULUS SPECIMENOrdering Facility: [facility] Address: [address] [place] [address] Result Comment: This test was developed and its performance characteristics determined by [facility] [place] [facility]). It has not been cleared or approved by the FDA. -[facility] is regulated under CLIA as qualified to perform high-complexity testing. This test is used for clinical purposes. It should not be regarded as investigational or for research. Performed By: #### C SA ####[facility] LABIA [id number] [address] [place] CALCULUS COLOR BROWN Normal [facility] Comment on above: Order Comment: Speci men Type: CALCULUS SPECIMENOrdering Facility: [facility] Address: [address] [place] [address] Performed By: #### C SA ####[facility] LABIA [id number] [address] [place] CALCULUS COMPOSITION 1 50% Calcium Oxala te Monohydrate Normal [facility] Comment on above: Order Comment: Speci men Type: CALCULUS SPECIMENOrdering Facility: [facility] Address: [address] [place] [address] Performed By: #### C SA ####[facility] LABIA [id number] [address] [place] CALCULUS COMPOSITION 2 40% Calcium Oxala te Dihydrate Normal [facility] Comment on above: Order Comment: Speci men Type: CALCULUS SPECIMENOrdering Facility: [facility] Address: [address] [place] [address] Performed By: #### C SA ####[facility] LABIA [id number] [address] CALCULUS COMPOSITION 3 10% Minor Components Normal [facility] Comment on above: Order Comment: Speci men Type: CALCULUS SPECIMENOrdering Facility: [facility] Address: [address] [place] [address] Performed By: #### C SA ####[facility] LABIA [id number] [address] STATES OF [place] CALCULUS SIZE AND WT 0.4 X 0.3 X 0.1 CM 0.0163 GRAMS Normal [facility] Comment on above: Order Comment: Speci men Type: CALCULUS SPECIMENOrdering Facility: [facility] Address: [address] [place] [address] Performed By: #### C SA ####[facility] LABIA [id number] [address] [place] OF [place] CALCULUS TYPE Calculus, CALCULI/CALCULUS Normal [facility] Comment on above: Order Comment: Speci men Type: CALCULUS SPECIMENOrdering Facility: [facility] Address: [address] [place] [address] Performed By: #### C SA ####[facility] LABIA [id number] [address] [place] CBC panel Auto (Bld)on 08-28 Erythrocyte distribution width (RBC) [Ratio] 12.7 % Normal 11.5-15.0 [facility] Comment on above: Order Comment: Speci men Type: BLOOD SPECIMENOrdering Facility: [facility] Address: [address] [place] [address] Performed By: #### 5 8410-2 ####[facility] [id number] [place] [address] [place] Hematocrit (Bld) [Volume fraction] 35.7 % Low 39.0-51.0 [facility] Comment on above: Order Comment: Speci men Type: BLOOD SPECIMENOrdering Facility: [facility] Address: [address] [place] [address] Performed By: #### 5 8410-2 ####[facility] LABIA [id number] [place] [address] [place] Hemoglobin (Bld) [Mass/Vol] 12.1 g/dL Low 13.0-17.0 [facility] Comment on above: Order Comment: Speci men Type: BLOOD SPECIMENOrdering Facility: [facility] Address: [address] [place] [address] Performed By: #### 5 8410-2 ####[facility] LABIA [id number] [address] STATES OF [facility] MCH (RBC) [Entitic mass] 31.8 pg Normal 26.0-34.0 [facility] Comment on above: Order Comment: Speci men Type: BLOOD SPECIMENOrdering Facility: [facility] Address: [address] [place] [address] Performed By: #### 5 8410-2 ####[facility] [id number] [place] [address] [place] MCHC (RBC) [Mass/Vol] 33.9 g/dL Normal 30.5-36.0 [facility] Comment on above: Order Comment: Speci men Type: BLOOD SPECIMENOrdering Facility: [facility] Address: [address] [place] [address] Performed By: #### 5 8410-2 ####[facility] LABIA [id number] [place] [address] [place] MCV (RBC) [Entitic vol] 93.7 fL Normal 80.0-100.0 [facility] Comment on above: Order Comment: Speci men Type: BLOOD SPECIMENOrdering Facility: [facility] Address: [address] [place], [place] [address] Performed By: #### 5 8410-2 ####[facility] LABCLIA [id number] [place] [address] [place] Nucleated RBC (Bld) [#/Vol] 10*3/uL Normal <0.01 [facility] Comment on above: Order Comment: Speci men Type: BLOOD SPECIMENOrdering Facility: [facility] Address: [address] [place], [place] [address] Performed By: #### 5 8410-2 ####[facility] LABIA [id number] [place] [address] [place] Platelet mean volume (Bld) [Entitic vol] 11.3 fL Normal 9.0-12.7 [facility] Comment on above: Order Comment: Speci men Type: BLOOD SPECIMENOrdering Facility: [facility] Address: [address] [place], [place] [address] Performed By: #### 5 8410-2 ####[facility] LABIA [id number] [place] [address] [place] Platelets (Bld) [#/Vol] 179 10*3/uL Normal 150-400 [facility] Comment on above: Order Comment: Speci men Type: BLOOD SPECIMENOrdering Facility: [facility] Address: [address] [place] [address] Performed By: #### 5 8410-2 ####[facility] LABIA [id number] [place] [address] [place] RBC (Bld) [#/Vol] 3.81 10*6/uL Low 4.20-6.00 [facility] Comment on above: Order Comment: Speci men Type: BLOOD SPECIMENOrdering Facility: [facility] Address: [address] Performed By: #### 5 8410-2 ####[facility] LABCLIA [id number] [place] [address] [place] WBC (Bld) [#/Vol] 16.02 10*3/uL High 3.70-11.00 [facility] Comment on above: Order Comment: Speci men Type: BLOOD SPECIMENOrdering Facility: [facility] Address: [address] [place], [place] [address] Performed By: #### 5 8410-2 ####[facility] LABCLIA [id number] [place] [address] [place] Erythrocyte distribution width (RBC) [Ratio] 12.8 % Normal 11.5-15.0 [facility] Comment on above: Order Comment: Speci men Type: BLOOD SPECIMENOrdering Facility: [facility] Address: [address] [place], [place] [address] Performed By: #### 5 8410-2 ####[facility] LABCLIA [id number] [place] [address] [place] Hematocrit (Bld) [Volume fraction] 32.6 % Low 39.0-51.0 [facility] Comment on above: Order Comment: Speci men Type: BLOOD SPECIMENOrdering Facility: [facility] Address: [address] [place], [place] [address] Performed By: #### 5 8410-2 ####[facility] LABCLIA [id number] [place] [address] [place] Hemoglobin (Bld) [Mass/Vol] 11.1 g/dL Low 13.0-17.0 [facility] Comment on above: Order Comment: Speci men Type: BLOOD SPECIMENOrdering Facility: [facility] Address: [address] [place], [place] [address] Performed By: #### 5 8410-2 ####[facility] LABCLIA [id number] [address] [place] MCH (RBC) [Entitic mass] 31.6 pg Normal 26.0-34.0 [facility] Comment on above: Order Comment: Speci men Type: BLOOD SPECIMENOrdering Facility: [facility] Address: [address] [place] [address] Performed By: #### 5 8410-2 ####[facility] [id number] [address] STATES OF [facility] MCHC (RBC) [Mass/Vol] 34.0 g/dL Normal 30.5-36.0 [facility] Comment on above: Order Comment: Speci men Type: BLOOD SPECIMENOrdering Facility: [facility] Address: [address] [place] [address] Performed By: #### 5 8410-2 ####[facility] [id number] [address] [place] MCV (RBC) [Entitic vol] 92.9 fL Normal 80.0-100.0 [facility] Comment on above: Order Comment: Speci men Type: BLOOD SPECIMENOrdering Facility: [facility] Address: [address] [place] [address] Performed By: #### 5 8410-2 ####[facility] [id number] [address] STATES OF [facility] Nucleated RBC (Bld) [#/Vol] 10*3/uL Normal <0.01 [facility] Comment on above: Order Comment: Speci men Type: BLOOD SPECIMENOrdering Facility: [facility] Address: [address] [place] [address] Performed By: #### 5 8410-2 ####[facility] [id number] [address] [place] Platelet mean volume (Bld) [Entitic vol] 11.2 fL Normal 9.0-12.7 [facility] Comment on above: Order Comment: Speci men Type: BLOOD SPECIMENOrdering Facility: [facility] Address: [address] [place] [address] Performed By: #### 5 8410-2 ####[facility] LABCLIA [id number] [place] [address] [place] Platelets (Bld) [#/Vol] 172 10*3/uL Normal 150-400 [facility] Comment on above: Order Comment: Speci men Type: BLOOD SPECIMENOrdering Facility: [facility] Address: [address] [place], [place] [address] Performed By: #### 5 8410-2 ####[facility] LABIA [id number] [place] [address] [place] RBC (Bld) [#/Vol] 3.51 10*6/uL Low 4.20-6.00 [facility] Comment on above: Order Comment: Speci men Type: BLOOD SPECIMENOrdering Facility: [facility] Address: [address] [place], [place] [address] Performed By: #### 5 8410-2 ####[facility] LABIA [id number] [place] [address] [place] WBC (Bld) [#/Vol] 11.53 10*3/uL High 3.70-11.00 [facility] Comment on above: Order Comment: Speci men Type: BLOOD SPECIMENOrdering Facility: [facility] Address: [address] [place], [place] [address] Performed By: #### 5 8410-2 ####[facility] LABCLIA [id number] [address] OF [facility] CONSULT PROGon 08-28-2022 CONSULT PROG HNO ID: [id number] Author: Uzma Bates MD Service: Cardiovascular Medicine [...] 08/28/2022 1045 Gross per 24 hour Intake 39737.5 ml Output 95254 ml Net -52412.5 ml TELEMETRY: DATA: Laboratory: Recent Labs 08/28/22 [...] (2000) and TURP (2006) who presented to [facility] ED 08/26/22 for development of gross hematuria with lower pelvic pain x2 days. He was found to have elevated WBC with + UA, and started on IV atbx. He was transferred to [facility] 08/27 for further management. He was [...] RCRI score is 1 for hx of GA, making him a class II risk. This equates to a 6.0% 30-day risk of , GA, or cardiac arrest. Pt denies any cardiac complaints. Per Dr. Bates, no absolute contraindication to proceeding with urologic p (more content not included)... Normal [facility] Comprehensive metabolic 2000 panelon 08-28-2022 Albumin [Mass/Vol] 4.1 g/dL Normal 3.9-4.9 [facility] Comment on above: Order Comment: Portia tay Type: BLOOD SPECIMENOrdering Facility: [facility] Address: [address] [place] [address] Performed By: #### 1 9123-9, 41579-8, 2777-1 ####[facility] LABCLIA [id number] [place] [address] [place] ALP [Catalytic activity/Vol] 119 U/L High 38-113 [facility] Comment on above: Order Comment: Janiei men Type: BLOOD SPECIMENOrdering Facility: [facility] Address: [address] [place] [address] Performed By: #### 1 9123-9, 08180-7, 2777- ####[facility] LABCLIA [id number] [place] [address] [place] ALT [Catalytic activity/Vol] 23 U/L Normal 10-54 [facility] Comment on above: Order Comment: Speci men Type: BLOOD SPECIMENOrdering Facility: [facility] Address: [address] [place] [address] Performed By: #### 1 9123-9, 21310-2, 2777- ####[facility] LABIA [id number] [place] [address] [place] Anion gap [Moles/Vol] 10 mmol/L Normal 9-18 [facility] Comment on above: Order Comment: Speci men Type: BLOOD SPECIMENOrdering Facility: [facility] Address: [address] [place] [address] Performed By: #### 1 9123-9, 78319-0, 277- ####[facility] LABIA [id number] [place] [address] [place] AST [Catalytic activity/Vol] 21 U/L Normal 14-40 [facility] Comment on above: Order Comment: Speci men Type: BLOOD SPECIMENOrdering Facility: [facility] Address: [address] [place], [place] [address] Performed By: #### 1 9123-9, 23931-2, 2777- ####[facility] LABIA [id number] [place] [address] [place] Bilirubin [Mass/Vol] 1.1 mg/dL Normal 0.2-1.3 [facility] Comment on above: Order Comment: Speci men Type: BLOOD SPECIMENOrdering Facility: [facility] Address: [address] [place], [place] [address] Performed By: #### 1 9123-9, 42115-8, 2776-02 ####[facility] LABCLIA [id number] [place] [address] [place] Calcium [Mass/Vol] 9.1 mg/dL Normal 8.5-10.2 [facility] Comment on above: Order Comment: Speci men Type: BLOOD SPECIMENOrdering Facility: [facility] Address: [address] [place] [address] Performed By: #### 1 9123-9, 19912-2, 2776-02 ####[facility] LABCLIA [id number] [place] [address] [place] Chloride [Moles/Vol] 105 mmol/L Normal 97-105 [facility] Comment on above: Order Comment: Speci men Type: BLOOD SPECIMENOrdering Facility: [facility] Address: [address] [place] [address] Performed By: #### 1 9123-9, , 2776-02 ####[facility] LABCLIA [id number] [place] [address] [place] CO2 [Moles/Vol] 24 mmol/L Normal 22-30 [facility] Comment on above: Order Comment: Speci men Type: BLOOD SPECIMENOrdering Facility: [facility] Address: [address] Performed By: #### 1 9123-9, 92124-1, 2776-02 ####[facility] LABCLIA [id number] [place] [address] [place] Creatinine [Mass/Vol] 0.76 mg/dL Normal 0.73-1.22 [facility] Comment on above: Order Comment: Speci men Type: BLOOD SPECIMENOrdering Facility: [facility] Address: [address] Performed By: #### 1 9123-9, 64742-4, 2776-02 ####[facility] LABCLIA [id number] [place] [address] [place] ESTIMATED GLOMERULAR FILTRATION RATE 93 mL/min/1.73m??? Normal >=60 [facility] Comment on above: Order Comment: Portia tay Type: BLOOD SPECIMENOrdering Facility: [facility] Address: [address] [place] [address] Result Comment: Mariaelena mated Glomerular Filtration Rate [...] actual GFR. Performed By: #### 1 9123-9, 90205-5, 2776-02 ####[facility] LABIA [id number] [place] [address] [place] Glucose [Mass/Vol] 147 mg/dL High 74-99 [facility] Comment on above: Order Comment: Portia tay Type: BLOOD SPECIMENOrdering Facility: [facility] Address: [address] [place] [address] Result Comment: The [place] Diabetes Association (ADA) provides guidance for cutoff [...] Standards of Medical Care in Diabetes 2016, [place] Diabetes Association. Diabetes Care. 2016.39(Suppl 1). Performed By: #### 1 9123-9, 02780-7, 2776-02 ####[facility] LABCLIA [id number] [place] [address] [place] Potassium [Moles/Vol] 4.2 mmol/L Normal 3.7-5.1 [facility] Comment on above: Order Comment: Speci men Type: BLOOD SPECIMENOrdering Facility: [facility] Address: [address] [place] [address] Performed By: #### 1 9123-9, 82270-1, 277- ####[facility] LABCLIA [id number] [place] [address] [place] Protein [Mass/Vol] 6.6 g/dL Normal 6.3-8.0 [facility] Comment on above: Order Comment: Speci men Type: BLOOD SPECIMENOrdering Facility: [facility] Address: [address] [place] [address] Performed By: #### 1 9123-9, 14336-2, 277- ####[facility] LABCLIA [id number] [place] [address] [place] Sodium [Moles/Vol] 139 mmol/L Normal 136-144 [facility] Comment on above: Order Comment: Speci men Type: BLOOD SPECIMENOrdering Facility: [facility] Address: [address] [place], [place] [address] Performed By: #### 1 9123-9, 71084-3, 277- ####[facility] LABCLIA [id number] [place] [address] [place] Urea nitrogen [Mass/Vol] 14 mg/dL Normal 9-24 [facility] Comment on above: Order Comment: Speci men Type: BLOOD SPECIMENOrdering Facility: [facility] Address: [address] [place], [place] [address] Performed By: #### 1 9123-9, 16876-2, 2777- ####[facility] LABCLIA [id number] [place] [id number] [place] ECHOon 08-28-2022 Echocardiography Echocardiography Rep ort: Transthoracic Echo [facility] Bedside Date of service: 08/28/2022 9:45:03 AM Ordering physician: DAVID ANDREWS Indication: Evaluation of [...] * * Final * * * CC Material [place] [facility] Image : [id number] Normal [facility] HISTORY PHYSICALon 3 HISTORY PHYSICAL HNO ID: [id number] Author: Earnest Portillo MD Service: Critical Care Author Type: Physician Type: HANDP Filed: 08/28/2022 10:48 PM Note Text: SERVICE DATE: 08/28/2022 SERVICE TIME: 9:49 PM SICU HANDP NOTE HPI: Olaf Briones is a 77 year old male with PMHx of recent STEMI on 08/20/22 (s/p JUHI),HTN, HLD, DM, nephrolithiasis, transferred from [facility] for gross hematuria. He is now s/p [...] Is Patient Clinically Ready to Transfer to [facility] or SDU?: No Discharge Planning: To be [...] ASA and ticagrelor Coronary artery disease involving [facility] coronary artery of [facility] heart without angina pectoris recent STEMI on 08/20/22 s/p JUHI Plan -Continue DAPT with ASA and ticagrelor Endocrinology Type 2 diabetes mellitus without complication, without long-term current use of insulin (HCC) No (more content not included)... Normal [facility] Magnesium SerPl-mCncon 08-28 Magnesium [Mass/Vol] 2.1 mg/dL Normal 1.7-2.3 [facility] Comment on above: Order Comment: Speci men Type: BLOOD SPECIMENOrdering Facility: [facility] Address: [address] [place] [address] Performed By: #### 1 9123-9, 49326-4, 2777-1 ####[facility] LABCLIA [id number] [address] [place] OPERATIVE NOon 08-28-2022 OPERATIVE NO HNO ID: [id number] Author: David Andrews MD Service: Urology Author Type: Physician Type: Operative Report Filed: 08/28/2022 8:20 PM Note Text: OPERATIVE/PROCEDURE REPORT LOG ID: [id number] Surgery/Procedure Date: 08/28/2022 Incision/Procedure Start Time: 6:17 PM Incision Close/Procedure End Time: 7:50 PM Surgeon(s)/Proceduralist(s ) and Cardiac/Vascular Sonographer(s): Surgeon(s) and Role: * David Andrews MD [...] with modest success. We then used the [employer] evacuator to clear out the remaining clot. [...] cold cup biopsy forceps as a stone filtrose crusher to allow for the stone to be [...] dictating on behalf of David Andrews MD [facility] STAFF PHYSICIAN NOTE OF PE (more content not included)... Normal [facility] Phosphate SerPl-mCncon 08-28 Phosphate [Mass/Vol] 2.9 mg/dL Normal 2.7-4.8 [facility] Comment on above: Order Comment: Speci men Type: BLOOD SPECIMENOrdering Facility: [facility] Address: [address] [place] [address] [place] [address] Performed By: #### 1 9123-9, 54334-6, 2777-1 ####[facility] LABIA [id number] [address] OF [facility] SURGICAL PATHOLOGYon 023 CASE REPORT Normal [facility] Comment on above: Order Comment: Speci men Type: TISSUE SPECIMENOrdering Facility: [facility] Address: [address] [place] [address] Result Comment: Surg [facility] Pathology Report Case: [id number] Authorizing Provider: David Andrews MD Collected: 08/28/2022 06:54 PM Ordering Location: Admitting Received: 08/29/2022 07:58 AM Pathologist: Gal Poon MD Specimens: A) - PROSTATE TISSUE (CHIPS) B) - PROSTATE TISSUE (CHIPS), #2 Performed By: #### S ####[facility] [id number] [address] CLINICAL HISTORY Normal [facility] Comment on above: Order Comment: Speci men Type: TISSUE SPECIMENOrdering Facility: [facility] Address: [address] [place] [address] Result Comment: Pre- op diagnosis: Hematuria [R31.9] Performed By: #### S ####[facility] [id number] [address] FINAL DIAGNOSIS Normal [facility] Comment on above: Order Comment: Speci men Type: TISSUE SPECIMENOrdering Facility: [facility] Address: [address] [place] [address] Result Comment: A. P rostate, transurethral resection: - Benign prostatic hyperplasia. A. 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 Performed By: #### S ####[facility] LABIA [id number] [place] [address] [place] FINAL PERFORMING LAB Normal [facility] Comment on above: Order Comment: Speci men Type: TISSUE SPECIMENOrdering Facility: [facility] Address: [address] [place] [address] Result Comment: Diag nostic interpretation performed at [facility] [place] [address] CLIA# [id number] Route Vending Machine Servicer: Jacob Urias M.D. Performed By: #### S ####[facility] LABCLIA [id number] [address] STATES OF [facility] GROSS DESCRIPTION Normal [facility] Comment on above: Order Comment: Speci men Type: TISSUE SPECIMENOrdering Facility: [facility] Address: [address] [place] [address] Result Comment: A. P ROSTATE TISSUE (CHIPS) [...] in cassette B1. Gross examination performed at [facility], [address] 08/29/2022 2:10 PM Performed By: #### S ####[facility] LABCLIA [id number] [place] [address] [place] VENOUS BLOOD GASES WITH IONI ZED MAGNESIUMon 08-28-2022 BASE DEFICIT, VENOUS -1 mmol/L Normal -2-0 [facility] Comment on above: Order Comment: Speci men Type: VENOUS BLOOD SPECIMENOrdering Facility: [facility] Address: [address] Performed By: #### V ALLMG ####[facility] LABCLIA [id number] [place] [address] [place] Calcium.ionized (Bld) [Mass/Vol] 1.19 mmol/L Normal 1.08-1.30 [facility] Comment on above: Order Comment: Speci men Type: VENOUS BLOOD SPECIMENOrdering Facility: [facility] Address: [address] [place] [address] Performed By: #### V ALLMG ####[facility] LABCLIA [id number] [place] [address] [place] Calcium.ionized adjusted to pH 7.4 (BldA) [Moles/Vol] 1.18 mmol/L Normal 1.08-1.30 [facility] Comment on above: Order Comment: Speci men Type: VENOUS BLOOD SPECIMENOrdering Facility: [facility] Address: [address] [place] [address] Performed By: #### V ALLMG ####[facility] LABCLIA [id number] [place] [address] [place] Carboxyhemoglobin (BldV) [Mass fraction] 1.9 % Normal 0.0-2.0 [facility] Comment on above: Order Comment: Speci men Type: VENOUS BLOOD SPECIMENOrdering Facility: [facility] Address: [address] [place] [address] Result Comment: Carb oxyhemoglobin Reference Range for Smokers: 2.0-8.0% Performed By: #### V ALLMG ####[facility] LABIA [id number] [place] [address] [place] CO2 (BldV) [Partial pressure] 40 mm[Hg] Low 42-55 [facility] Comment on above: Order Comment: Speci men Type: VENOUS BLOOD SPECIMENOrdering Facility: [facility] Address: [address] [place] [address] Performed By: #### V ALLMG ####[facility] LABCLIA [id number] [place] [address] [place] CO2 [Moles/Vol] 25 mmol/L Normal 25-29 [facility] Comment on above: Order Comment: Speci men Type: VENOUS BLOOD SPECIMENOrdering Facility: [facility] Address: [address] [place] [address] Performed By: #### V ALLMG ####[facility] LABCLIA [id number] [place] [address] [place] CO2 adjusted to patient's actual temperature (BldV) [Partial pressure] 40 mmHg Low 42-55 [facility] Comment on above: Order Comment: Speci men Type: VENOUS BLOOD SPECIMENOrdering Facility: [facility] Address: [address] [place] [address] Performed By: #### V ALLMG ####[facility] LABCLIA [id number] [place] [address] [place] Glucose [Mass/Vol] 120 mg/dL High 60-105 [facility] Comment on above: Order Comment: Speci men Type: VENOUS BLOOD SPECIMENOrdering Facility: [facility] Address: [address] [place] [address] Performed By: #### V ALLMG ####[facility] LABCLIA [id number] [place] [address] [place] HCO3 (Bld) [Moles/Vol] 24 mmol/L Normal 24-28 [facility] Comment on above: Order Comment: Speci men Type: VENOUS BLOOD SPECIMENOrdering Facility: [facility] Address: [address] [place], [place] [address] Performed By: #### V ALLMG ####[facility] LABCLIA [id number] [place] [address] [place] Hematocrit (Bld) [Volume fraction] 37.2 % Low 39.0-51.0 [facility] Comment on above: Order Comment: Speci men Type: VENOUS BLOOD SPECIMENOrdering Facility: [facility] Address: [address] [place] [address] Performed By: #### V ALLMG ####[facility] LABIA [id number] [place] [address] [place] Hemoglobin (Bld) [Mass/Vol] 12.1 g/dL Low 13.0-17.0 [facility] Comment on above: Order Comment: Speci men Type: VENOUS BLOOD SPECIMENOrdering Facility: [facility] Address: [address] [place] [address] Performed By: #### V ALLMG ####[facility] LABIA [id number] [place] [address] [place] Lactate [Moles/Vol] 1.4 mmol/L Normal 0.5-2.2 [facility] Comment on above: Order Comment: Speci men Type: VENOUS BLOOD SPECIMENOrdering Facility: [facility] Address: [address] [place] [place] [address] Performed By: #### V ALLMG ####[facility] LABIA [id number] [place] [address] [place] Magnesium [Moles/Vol] 0.58 mmol/L Normal 0.45-0.60 [facility] Comment on above: Order Comment: Speci men Type: VENOUS BLOOD SPECIMENOrdering Facility: [facility] Address: [address] Performed By: #### V ALLMG ####[facility] LABIA [id number] [place] [address] [place] Methemoglobin (Bld) [Mass fraction] 1.7 % High 0.0-1.5 [facility] Comment on above: Order Comment: Speci men Type: VENOUS BLOOD SPECIMENOrdering Facility: [facility] Address: [address] Performed By: #### V ALLMG ####[facility] LABCLIA [id number] [place] [address] [place] Oxygen (BldV) [Partial pressure] 96 mm[Hg] High 35-45 [facility] Comment on above: Order Comment: Speci men Type: VENOUS BLOOD SPECIMENOrdering Facility: [facility] Address: [address] [place], [place] [address] Performed By: #### V ALLMG ####[facility] LABCLIA [id number] [place] [address] [place] Oxygen adjusted to patient's actual temperature (BldV) [Partial pressure] 96 mmHg High 35-45 [facility] Comment on above: Order Comment: Speci men Type: VENOUS BLOOD SPECIMENOrdering Facility: [facility] Address: [address] [place], [place] [address] Performed By: #### V ALLMG ####[facility] LABCLIA [id number] [place] [address] [place] Oxygen saturation in Venous blood 97 % High 60-85 [facility] Comment on above: Order Comment: Speci men Type: VENOUS BLOOD SPECIMENOrdering Facility: [facility] Address: [address] [place], [place] [address] Performed By: #### V ALLMG ####[facility] LABCLIA [id number] [place] [address] [place] Oxyhemoglobin (BldV) [Mass fraction] 94 % High 60-85 [facility] Comment on above: Order Comment: Speci men Type: VENOUS BLOOD SPECIMENOrdering Facility: [facility] Address: [address] [place], [place] [address] Performed By: #### V ALLMG ####[facility] LABCLIA [id number] [place] [address] [place] pH (BldV) 7.39 [pH] Normal 7.32-7.42 [facility] Comment on above: Order Comment: Speci men Type: VENOUS BLOOD SPECIMENOrdering Facility: [facility] Address: [address] [place] [address] Performed By: #### V ALLMG ####[facility] LABCLIA [id number] [place] [address] [place] pH adjusted to patient's actual temperature (BldV) 7.39 Normal 7.32-7.42 [facility] Comment on above: Order Comment: Speci men Type: VENOUS BLOOD SPECIMENOrdering Facility: [facility] Address: [address] [place] [address] Performed By: #### V ALLMG ####[facility] LABCLIA [id number] [place] [address] [place] Potassium [Moles/Vol] 3.8 mmol/L Normal 3.5-5.0 [facility] Comment on above: Order Comment: Speci men Type: VENOUS BLOOD SPECIMENOrdering Facility: [facility] Address: [address] [place] [address] Performed By: #### V ALLMG ####[facility] LABCLIA [id number] [place] [address] [place] Sodium [Moles/Vol] 139 mmol/L Normal 136-144 [facility] Comment on above: Order Comment: Speci men Type: VENOUS BLOOD SPECIMENOrdering Facility: [facility] Address: [address] [place] [address] Performed By: #### V ALLMG ####[facility] LABCLIA [id number] [place] [address] [place] XR CHEST 1V [...] tortuous. Other: Generalized osteopenia. IMPRESSION: See result. Conference Service Coordinator: PSCB Transcribe Date/Time: Aug 28 2022 10:04P Dictated by : AMERICO ADHIKARI MD This examination was interpreted and the report reviewed and electronically signed by: AMERICO ADHIKARI MD on Aug 28 2022 10:06PM EST [id number] Normal [facility] Bacteria Bld Culton 08-28-19 23 Bacteria identified Cx Nom (Bld) CULTURE, BLOOD: No growth 5 days Normal [facility] Comment on above: Performed By: #### 6 00-7 ####[facility] LABCLIA [id number] [place] [address] [place] Bacteria identified Cx Nom (Bld) CULTURE, BLOOD: No growth 5 days Normal [facility] Comment on above: Performed By: #### 6 00-7 ####[facility] LABCLIA [id number] [place] [address] [place] Bacteria Ur Culton 3 Bacteria identified Cx Nom (U) CULTURE, URINE: No growth (<1,000 CFU/ml) Normal [facility] Comment on above: Performed By: #### 6 30-4 ####[facility] LABCLIA [id number] [place] [address] [place] Basic metabolic 2000 panelon 08-27-2022 Anion gap [Moles/Vol] 13 mmol/L Normal 9-18 [facility] Comment on above: Order Comment: Speci men Type: BLOOD SPECIMENOrdering Facility: [facility] Address: [address] Performed By: #### 2 4321-2, , 2776-02 ####[facility] LABCLIA [id number] [place] [address] [place] Calcium [Mass/Vol] 9.3 mg/dL Normal 8.5-10.2 [facility] Comment on above: Order Comment: Speci men Type: BLOOD SPECIMENOrdering Facility: [facility] Address: [address] Performed By: #### 2 4321-2, , 2776-02 ####[facility] LABCLIA [id number] [place] [address] [place] Chloride [Moles/Vol] 105 mmol/L Normal 97-105 [facility] Comment on above: Order Comment: Speci men Type: BLOOD SPECIMENOrdering Facility: [facility] Address: [address] [place], [place] [address] Performed By: #### 2 4321-2, , 2776-02 ####[facility] LABCLIA [id number] [place] [address] [place] CO2 [Moles/Vol] 22 mmol/L Normal 22-30 [facility] Comment on above: Order Comment: Speci men Type: BLOOD SPECIMENOrdering Facility: [facility] Address: [address] Performed By: #### 2 4321-2, , 2776-02 ####[facility] LABCLIA [id number] [place] [id number] [place] Creatinine [Mass/Vol] 0.79 mg/dL Normal 0.73-1.22 [facility] Comment on above: Order Comment: Speci men Type: BLOOD SPECIMENOrdering Facility: [facility] Address: [address] [place] [id number] Performed By: #### 2 4321-2, 20972-6, 2776-02 ####[facility] LAB[facility] [id number] [place] [address] [place] ESTIMATED GLOMERULAR FILTRATION RATE 91 mL/min/1.73m??? Normal >=60 [facility] Comment on above: Order Comment: Portia tay Type: BLOOD SPECIMENOrdering Facility: [facility] Address: [address] Result Comment: Mariaelena mated Glomerular Filtration [...] Performed By: #### 2 4321-2, , 2776-02 ####[facility] LABIA [id number] [place] [address] [place] Glucose [Mass/Vol] 197 mg/dL High 74-99 [facility] Comment on above: Order Comment: Portia tay Type: BLOOD SPECIMENOrdering Facility: [facility] Address: [address] [place] [address] Result Comment: The Citizen Of [place] Diabetes Association (ADA) provides guidance for cutoff [...] Standards of Medical Care in Diabetes 2016, Citizen Of [place] Diabetes Association. Diabetes Care. 2016.39(Suppl 1). Performed By: #### 2 4321-2, , 2776-02 ####[facility] LABCLIA [id number] [place] [address] [place] Potassium [Moles/Vol] 4.3 mmol/L Normal 3.7-5.1 [facility] Comment on above: Order Comment: Speci men Type: BLOOD SPECIMENOrdering Facility: [facility] Address: [address] [place] [address] Performed By: #### 2 4321-2, , 2776-02 ####[facility] LABCLIA [id number] [place] [address] [place] Sodium [Moles/Vol] 140 mmol/L Normal 136-144 [facility] Comment on above: Order Comment: Speci men Type: BLOOD SPECIMENOrdering Facility: [facility] Address: [address] [place] [address] Performed By: #### 2 4321-2, , 2776-02 ####[facility] LABCLIA [id number] [place] [address] [place] Urea nitrogen [Mass/Vol] 17 mg/dL Normal 9-24 [facility] Comment on above: Order Comment: Speci men Type: BLOOD SPECIMENOrdering Facility: [facility] Address: [address] [place] [address] Performed By: #### 2 4321-2, , 2776-02 ####[facility] LABCLIA [id number] [address] [address] [place] CASE MGT INIT NICCIESon 2022 CASE MGT INIT ASSES HNO ID: [id number] Author: Ynae George RN Service: ? Author Type: Registered [...] Current Advance Directive: Health Care Power of Diet Technician Registered (Patient reports he has AD. request copy to scan for epic chart) Current Living Arrangements and Support Lives [...] General wellness, Be able to go home [place] of Choice Explained: [place] of [place] Given: No Reason Not Given: [...] HLD, DM, nephrolithiasis who was transferred from [facility] w/ gross hematuria CM met patient in room. Patient lives with spouse at home. Patient reports independence at home with adl's/iadl's prior to admission. No oxygen, or cpaps at home. Had recent GA in past. Cardiology on consult. No current [...] 27, 2022 TIME: 5:05 PM CONTACT #: [phone] Normal [facility] CBC W Auto Differential pane l (Bld)on 08-27-2022 Basophils (Bld) [#/Vol] 0.03 10*3/uL Normal <0.11 [facility] Comment on above: Order Comment: Speci men Type: BLOOD SPECIMENOrdering Facility: [facility] Address: [address] [place] [address] Performed By: #### 5 7021-8 ####[facility] LABCLIA [id number] [place] [address] [place] Basophils/100 WBC (Bld) 0.2 % Normal [facility] Comment on above: Order Comment: Speci men Type: BLOOD SPECIMENOrdering Facility: [facility] Address: [address] [place] [address] Performed By: #### 5 7021-8 ####[facility] LABCLIA [id number] [place] [address] [place] Differential cell count method Nom (Bld) Auto Normal [facility] Comment on above: Order Comment: Speci men Type: BLOOD SPECIMENOrdering Facility: [facility] Address: [address] [place] [address] Performed By: #### 5 7021-8 ####[facility] LABCLIA [id number] [place] [address] [place] Eosinophils (Bld) [#/Vol] 10*3/uL Normal <0.46 [facility] Comment on above: Order Comment: Speci men Type: BLOOD SPECIMENOrdering Facility: [facility] Address: [address] [place] [address] Performed By: #### 5 7021-8 ####[facility] LABCLIA [id number] [place] [address] [place] Eosinophils/100 WBC (Bld) 0.1 % Normal [facility] Comment on above: Order Comment: Speci men Type: BLOOD SPECIMENOrdering Facility: [facility] Address: [address] [place] [address] Performed By: #### 5 7021-8 ####[facility] LABCLIA [id number] [place] [address] [place] Erythrocyte distribution width (RBC) [Ratio] 12.5 % Normal 11.5-15.0 [facility] Comment on above: Order Comment: Speci men Type: BLOOD SPECIMENOrdering Facility: [facility] Address: [address] [place] [address] Performed By: #### 5 7021-8 ####[facility] LABIA [id number] [place] [address] [place] Hematocrit (Bld) [Volume fraction] 38.5 % Low 39.0-51.0 [facility] Comment on above: Order Comment: Speci men Type: BLOOD SPECIMENOrdering Facility: [facility] Address: [address] [place] [address] Performed By: #### 5 7021-8 ####[facility] LABIA [id number] [place] [address] [place] Hemoglobin (Bld) [Mass/Vol] 13.4 g/dL Normal 13.0-17.0 [facility] Comment on above: Order Comment: Speci men Type: BLOOD SPECIMENOrdering Facility: [facility] Address: [address] [place], [place] [address] Performed By: #### 5 7021-8 ####[facility] LABIA [id number] [place] [address] [place] Immature granulocytes (Bld) [#/Vol] 0.10 10*3/uL High <0.10 [facility] Comment on above: Order Comment: Speci men Type: BLOOD SPECIMENOrdering Facility: [facility] Address: [address] [place] [address] Performed By: #### 5 7021-8 ####[facility] LABCLIA [id number] [address] Immature granulocytes/100 WBC (Bld) 0.6 % Normal [facility] Comment on above: Order Comment: Speci men Type: BLOOD SPECIMENOrdering Facility: [facility] Address: [address] [place] [address] Performed By: #### 5 7021-8 ####[facility] LABCLIA [id number] [place] [address] [place] Lymphocytes (Bld) [#/Vol] 1.16 10*3/uL Normal 1.00-4.00 [facility] Comment on above: Order Comment: Speci men Type: BLOOD SPECIMENOrdering Facility: [facility] Address: [address] [place] [address] Performed By: #### 5 7021-8 ####[facility] LABCLIA [id number] [address] STATES [facility] Lymphocytes/100 WBC (Bld) 7.1 % Normal [facility] Comment on above: Order Comment: Speci men Type: BLOOD SPECIMENOrdering Facility: [facility] Address: [address] [place], [place] [address] Performed By: #### 5 7021-8 ####[facility] LABCLIA [id number] [place] [address] [place] MCH (RBC) [Entitic mass] 31.5 pg Normal 26.0-34.0 [facility] Comment on above: Order Comment: Speci men Type: BLOOD SPECIMENOrdering Facility: [facility] Address: [address] [place] [address] Performed By: #### 5 7021-8 ####[facility] LABCLIA [id number] [place] [address] [place] MCHC (RBC) [Mass/Vol] 34.8 g/dL Normal 30.5-36.0 [facility] Comment on above: Order Comment: Speci men Type: BLOOD SPECIMENOrdering Facility: [facility] Address: [address] [place] [address] Performed By: #### 5 7021-8 ####[facility] LABIA [id number] [place] [address] [place] MCV (RBC) [Entitic vol] 90.6 fL Normal 80.0-100.0 [facility] Comment on above: Order Comment: Speci men Type: BLOOD SPECIMENOrdering Facility: [facility] Address: [address] [place] [address] Performed By: #### 5 7021-8 ####[facility] LABIA [id number] [place] [address] [place] Monocytes (Bld) [#/Vol] 1.00 10*3/uL High <0.87 [facility] Comment on above: Order Comment: Speci men Type: BLOOD SPECIMENOrdering Facility: [facility] Address: [address] [place], [place] [address] Performed By: #### 5 7021-8 ####[facility] LABIA [id number] [place] [address] [place] Monocytes/100 WBC (Bld) 6.2 % Normal [facility] Comment on above: Order Comment: Speci men Type: BLOOD SPECIMENOrdering Facility: [facility] Address: [address] [place], [place] [address] Performed By: #### 5 7021-8 ####[facility] LABCLIA [id number] [place] [address] [place] Neutrophils (Bld) [#/Vol] 13.93 10*3/uL High 1.45-7.50 [facility] Comment on above: Order Comment: Speci men Type: BLOOD SPECIMENOrdering Facility: [facility] Address: [address] Performed By: #### 5 7021-8 ####[facility] LABIA [id number] [address] [place] Neutrophils/100 WBC (Bld) 85.8 % Normal [facility] Comment on above: Order Comment: Speci men Type: BLOOD SPECIMENOrdering Facility: [facility] Address: [address] Performed By: #### 5 7021-8 ####[facility] LABIA [id number] [place] [address] [place] Nucleated RBC (Bld) [#/Vol] 10*3/uL Normal <0.01 [facility] Comment on above: Order Comment: Speci men Type: BLOOD SPECIMENOrdering Facility: [facility] Address: [address] Performed By: #### 5 7021-8 ####[facility] LABIA [id number] [place] [address] [place] Nucleated RBC/100 WBC (Bld) [Ratio] 0.0 /100 WBC Normal [facility] Comment on above: Order Comment: Speci men Type: BLOOD SPECIMENOrdering Facility: [facility] Address: [address] [place] [address] Performed By: #### 5 7021-8 ####[facility] LABIA [id number] [place] [address] [place] Platelet mean volume (Bld) [Entitic vol] 11.4 fL Normal 9.0-12.7 [facility] Comment on above: Order Comment: Speci men Type: BLOOD SPECIMENOrdering Facility: [facility] Address: [address] Performed By: #### 5 7021-8 ####[facility] [id number] [place] [address] [place] Platelets (Bld) [#/Vol] 214 10*3/uL Normal 150-400 [facility] Comment on above: Order Comment: Speci men Type: BLOOD SPECIMENOrdering Facility: [facility] Address: [address] [place] [address] Performed By: #### 5 7021-8 ####[facility] [id number] [place] [address] [place] RBC (Bld) [#/Vol] 4.25 10*6/uL Normal 4.20-6.00 [facility] Comment on above: Order Comment: Speci men Type: BLOOD SPECIMENOrdering Facility: [facility] Address: [address] [place] [address] Performed By: #### 5 7021-8 ####[facility] [id number] [place] [address] [place] WBC (Bld) [#/Vol] 16.24 10*3/uL High 3.70-11.00 [facility] Comment on above: Order Comment: Speci men Type: BLOOD SPECIMENOrdering Facility: [facility] Address: [address] [place] [address] Performed By: #### 5 7021-8 ####[facility] [id number] [address] OF [facility] CONFIRM BLOOD TYPEon 023 ABO O Normal [facility] Comment on above: Order Comment: Speci men Type: BLOOD SPECIMENOrdering Facility: [facility] Address: [address] [place] [address] Performed By: #### C ONABO ####[facility] [id number] [address] [place] Rh Nom (Bld) Positive Normal [facility] Comment on above: Order Comment: Speci men Type: BLOOD SPECIMENOrdering Facility: [facility] Address: [address] [place] [address] Performed By: #### C ONABO ####CC [facility] BLOOD BANKCLIA [id number] [address] [id number] [id number] [facility] CONSULTon 08-27-2022 CONSULT HNO ID: [id number] Author: Uzma Bates MD Service: Cardiovascular Medicine Author Type: Physician Type: Consults Filed: 08/27/2022 8:39 PM Note Text: [facility] CARDI[facility]ASCULAR MEDICINE CONSULT NOTE (Template ID [id number]) Olaf Briones [id number] PRIMARY SERVICE: Urology CONSULTING SERVICE: Cardiovascular Medicine: [...] HLD, DM, nephrolithiasis who was transferred from [facility] w/ gross hematuria. Hematuria started on Thursday [...] passed out . 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 In clinical laboratory technologist, there were concerns that pacemaker might be necessary. After stent was deployed in prox RCA,AV block resolved and HR normalized. Pt was put on ASA, Brillinta, Lisinopril (2.5), and Coreg (6.25) and was discharged two days later. PAST MEDICAL HISTORY HTN, HLD, CAD, DM FAMILY HISTORY Son- [place], Daughter- [place] HOME MEDICATIONS allopurinol (ZYLOPRIM) 300 mg tabletTake [...] rash o (more content not included)... Normal [facility] CT Urogramon 08-27-2022 CT Urogram Exam Date/Time: [...] 300 Contrast amount in ml's: 100 Normal [facility] Consultation Noteon 08-28-19 Consultation Note Patient: ARTHUR BRIONES Age: 77 years Sex: Male : 1945 Associated Diagnoses: None Author: Alexandre KOROMA MD Chief Complaint 08/26/2022 17:07 EDT pt to ER with c/o lower pelvic pain and blood clots in urine that started saturday. history of kidney stones. just had a stent placed last saturday at [facility]. sees dr ivory Thank for consultation on [...] BPH with urinary obstruction / SNOMED CT 6803383928 / Confirmed Kidney stone / SNOMED CT 444503333 / Confirmed Weak urinary stream / SNOMED CT 952204883 / Confirmed Microscopic hematuria / SNOMED CT 048935284 / Confirmed Diabetes / SNOMED CT 269705171 / Confirmed Hypertension / SNOMED CT 4415131840 / Confirmed Prostatitis / SNOMED CT 58976792 / Confirmed BPH without urinary obstruction / SNOMED CT 9540737110 / Confirmed Gross hematuria / SNOMED CT 569247130 / Confirmed Asymptomatic microscopic hematuria / SNOMED CT 8650407376 / Confirmed, Active Problems (10) Asymptomatic microscopic hematuria BPH with urinary obstruction BPH without urinary obstruction Diabetes Gross hematuria Hypertension Kidney stone Microscopic hematuria Prostatitis Weak urinary stream Histories Past Medical History: No active or resolved past medical history items have been selected or recorded. Family History: Hypertension Father Procedure history: Cystoscopy ([id number]) on 08/18/2013 at 68 Years. Comments: 10/02/2018 16:11 ROLA - Katie Rogers MA 11/08/200904/2006 TURP - Transurethral resection of prostate ([id number]) in 2006 at 61 Years. Urodynamics (720934202) in 2006 at 61 Years. Transrectal biopsy of prostate using ultrasound (US) guidance (2760103784) in 2005 at 60 Years. ESWL - Extracorporeal shockwave lithotripsy for renal calculus (370153301) in 2000 at 55 Years. Comments: 10/02/2018 16:11 EDT - Sue RAPP, Katie Cifuentes LEFT Social History Social & [...] Blood Press (more content not included)... Normal [facility] Comment on above: Result Comment: Elec tronically Signed By: Alexandre KOROMA MD\.br\Date and Time Signed: 08/26/22 22:22 EDT ECG COMPLETEon 08-27-2022 ECG COMPLETE Ventricular Rate : 6 8 BPM Atrial Rate : 68 BPM P-R Interval : 186 ms QRS Duration : 102 ms Q-T Interval : 452 ms QTC Calculation(Bazett) : 480 ms Calculated P [place] : 7 degrees Calculated R [place] : -25 degrees Calculated T [place] : -33 degrees NORMAL SINUS RHYTHM MINIMAL VOLTAGE CRITERIA FOR LVH, MAY BE NORMAL VARIANT ( R in aVL ) CANNOT EXCLUDE ANTERIOR MYOCARDIAL INFARCTION , AGE UNDETERMINED ABNORMAL ECG Confirmed by GAVINO HAHN, CODY (57) on 09/01/2022 3:04:36 PM NAME : OLAF BRIONES PID : [id number] : 1945 Gender : Male Race : Unknown ORD : [id number] Procedure Date : Aug 27 2022 12:56:05 Edit Date : Sep 01 2022 15:04:38 Diagnosis: NORMAL SINUS RHYTHM MINIMAL VOLTAGE CRITERIA FOR LVH, MAY BE NORMAL VARIANT ( R in aVL ) CANNOT EXCLUDE ANTERIOR MYOCARDIAL INFARCTION , AGE UNDETERMINED ABNORMAL ECG Confirmed by CODY MANCIA MD (57) on 09/01/2022 3:04:36 PM Test Reason : Arrhythmia Location : 53 : H50 H050-01 Overread By : CODY MANCIA MD Edited By : CODY MANCIA MD Referred By : , Acquired by : CAROL MALDONADO [facility] ED Clinical Summaryon 2022 ED Clinical Summary (Inserted Image. Amara ble to display) [place] [id number] ED Clinical Summary Person Information Name: OLAF BRIONES Consuelo/[facility] Age: 77 Years : 1945 Sex: Male Language: Telugu PCP: JAME BARRAZA MD Marital Status: Visit [...] 08/27/2022 04:32:32 08/27/2022 04:32:32 08/27/2022 04:32:32 ADDRESS: [address] [place] [id number] [place] [address] NOTES: MEDICAL INFORMATION: Prescriptions Given: Medications to [...] infection; Other obstructive and reflux uropathy Normal [facility] ED Note-Physicianon 08-28-19 ED Note-Physician Patient [...] and spoke with Dr. Johnson from the [facility] who agreed to the transfer the patient for further care. Normal [facility] Comment on above: Result Comment: Elec tronically Signed By: Tom Salas DO\.br\Date and Time Signed: 08/27/22 02:17 EDT ED Patient Education Noteon 08-27-2022 ED Patient Education Note Normal [facility] ED Patient Summaryon 023 ED Patient Summary (Inserted Image. Amara ble to display) [place] [id number] Patient Discharge Instructions Person Information Name: OLAF BRIONES Age: 77 Years Arrival Date: 08/26/2022 16:52:40 Discharge Diagnosis: 1:Urinary retention; 2:Gross hematuria; 3:Urinary tract infection; Other obstructive and reflux uropathy Primary Care Physician: CHRISTI HAHN, JAME Bowers Provider Information Primary Provider: Abdulkadir Villatoro, Keith Arnold Advanced Butter Fat Tester:None The exam and treatment you received in the Emergency Department were for an urgent problem and are not intended as complete care. It is important that you follow up with a doctor, nurse practitioner, or physician?s assistant librarian for ongoing care. If your symptoms become [...] opioids can be used to help relieve xgvwxubz-gw-zqsnvn pain and are often prescribed following a [...] be struggling with addiction, tell your health rn progressive care and ask for guidance or call [facility] National Helpline at 2-932-672-DAPD. v Source: [place] Department of Health and Human Services/Center for Disease Control & Prevention Citizen Of [place] H (more content not included)... Normal [facility] HISTORY PHYSICALon 3 HISTORY PHYSICAL HNO ID: [id number] Author: David Andrews MD Service: Urology Author Type: Physician Type: HANDP Filed: 08/27/2022 9:26 PM Note Text: UROLOGY SERVICE HISTORY AND PHYSICAL Name: Olaf Briones Bed: H050 001/H050-01 Date: 08/27/2022 After Hours Main [facility] Urology Service Pager: [phone] ASSESSMENT AND PLAN Olaf Briones is a 77 year old male with PMHx of HTN, HLD, DM, recent STEMI (s/p JUHI), nephrolithiasis, transferred from [facility] for gross hematuria. Currently with 18Fr 3-way [...] catheter stops flowing clamp CBI and page [phone] - Will continue to follow urine, if remains clear may be able to avoid OR this admission in setting of recent STEMI requiring PCI - Working to obtain cardiology records from [facility] Gt Encarnacion MD PGY-6, Urology Pager: [phone] After 1800 and on weekends please page [phone] for assistance. Active Problems Prior GA POA: Yes - placed on ASA 81, [...] recent STEMI (s/p JUHI), nephrolithiasis, transferred from [facility] for gross hematuria. He recently had primary revascularization of proximal RCA (3mm JUHI) placed at [facility] for STEMI on August 20. He was [...] He is seen by Dr. Ivory in [facility] for nephrolithiasis. He previously had ESWL (2000), [...] as need (more content not included)... Normal [facility] Insurance Correspondence Off 08-27-2022 Insurance Correspondence Office [id number]#1.00CD:127 Normal [facility] MEDICAL EMERon 08-27-2022 [facility] HNO ID: [id number] Author: Francis Irizarry MD Service: Urology Author Type: Resident Type: Chg in Clinical Condition Filed: 08/27/2022 9:40 AM Note Text: Olaf Briones 08/27/2022 9:33 AM AMET for orthostatic hypotension Assessment: Olaf Briones is a 77 year old male with PMHx of HTN, HLD, DM, recent STEMI (s/p JUHI), nephrolithiasis, transferred from [facility] for gross hematuria. Currently with 18Fr 3-way [...] brillinta for recent STEMI last week at [facility]. Unable to see ECHO data, EKG at bedside with bigeminy per AMET team - Carvedilol was held this AM per nursing - IVF 75 cc/hr - Patient feels asymptomatic at this time On exam, CBI with light pink output on moderate CBI drip no clots noted in tubing or bag, flowing without issue, vitals normalized, patient alert and oriented x3, discussing meds and when his is coming to visit. 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 Zamora. Luis Angel on brillinta [...] at bedside to have bring records from [facility] to here. Will also request ECHO report from [facility] as well. - Continue CBI, titrate to light pink Discussed with chief, Dr. Encarnacion, and staff, Dr. Sharon Irizarry MD Pager [phone], after hours or weekends please page [phone] Urology Resident, PGY-5 Normal [facility] HNO ID: [id number] Author: Claudy William APRN.DRIVING SCHOOL INSTRUCTOR Service: Critical Care Author Type: Nurse Practitioner [...] past surgical history on file. Peripheral 08/27/22 0600 External Facility Short Right Forearm 20 Gauge (Active) Placement Date/Time: 08/27/22 0600 Line, Drain, Airway Placed by: (!) External Facility Type of Peripheral Line: Short Location: Right Insertion Site: Forearm Size: 20 Gauge [facility] Diagnostic Tests Reviewed: Most recent labs Primary Team Aware/Notified: Yes SIGNATURE: Claudy William APRN.CNP PATIENT NAME: Olaf Briones DATE: August 27, 2022 TIME: 9:11 AM Normal [facility] Magnesium SerPl-mCncon 08-27 Magnesium [Mass/Vol] 2.2 mg/dL Normal 1.7-2.3 [facility] Comment on above: Order Comment: Portia tay Type: BLOOD SPECIMENOrdering Facility: [facility] Address: [address] [place], [place] [address] Performed By: #### 2 4321-2, 10067-7, 2777-1 ####[facility] LABCLIA [id number] [facility] [address] Monitor Recordon 08-27-2022 Monitor Record [id number]#1.00CD:127 Normal [facility] PT panel Coag (PPP)on 2022 INR Coag (PPP) [Relative time] 1.0 {INR} Normal 0.9-1.3 [facility] Comment on above: Order Comment: Portia tay Type: BLOOD SPECIMENOrdering Facility: [facility] Address: [address] [place], [place] [address] Result Comment: Mago min K Antagonist (VKA) Therapeutic Range: INR 2 to 3 (Target INR of 2.5) Note: For patients treated with VKA drugs, such as warfarin, the Citizen Of [place] College of Chest [employer]icians 2012 Guideline recommends [...] Chest 2012, 141:7S-47S Daniel RA, et al. [facility] 2017, 70: 252-289 Performed By: #### 3 4528-0, 21090-2 ####[facility] LABIA [id number] [address] STATES OF [facility] PT Coag (PPP) [Time] 10.4 s Normal 9.7-13.0 [facility] Comment on above: Order Comment: Speci men Type: BLOOD SPECIMENOrdering Facility: [facility] Address: [address] [place] [address] Performed By: #### 3 4528-0, 64147-7 ####[facility] [id number] [address] OF [place] Phosphate SerPl-mCncon 08-27 Phosphate [Mass/Vol] 3.7 mg/dL Normal 2.7-4.8 [facility] Comment on above: Order Comment: Speci men Type: BLOOD SPECIMENOrdering Facility: [facility] Address: [address] [place] [address] Performed By: #### 2 4321-2, 62516-5, 2777-1 ####[facility] [id number] [address] [place] RAD - Preliminary Cat Scan R eporton 08-27-2022 RAD - Preliminary Cat Scan Report [id number]#1.00CD:127 Normal [facility] TYPE + SCREENon 08-27-2022 ABO O Normal [facility] Comment on above: Order Comment: Speci men Type: BLOOD SPECIMENOrdering Facility: [facility] Address: [address] [place] [address] Performed By: #### T SCR ####CC MAIN BLOOD BANKCLIA [id number] [address] HISTORICAL AB SCR STATUS Negative Normal [facility] Comment on above: Order Comment: Speci men Type: BLOOD SPECIMENOrdering Facility: [facility] Address: [address] [place] [address] Performed By: #### T SCR ####CC MAIN BLOOD BANKCLIA [id number] [address] [place] Rh Nom (Bld) Positive Normal [facility] Comment on above: Order Comment: Speci men Type: BLOOD SPECIMENOrdering Facility: [facility] Address: [address] [place] [address] Performed By: #### T SCR ####CC [facility] BLOOD BANKCLIA [id number] [address] OF [place] TYPE AND SCREEN EXPIRATION 08/30/2022 23:59 Normal [facility] Comment on above: Order Comment: Speci men Type: BLOOD SPECIMENOrdering Facility: [facility] Address: [address] [place] [address] Performed By: #### T SCR ####CC [facility] BLOOD BANKCLIA [id number] [place] [address] [place] Transfer Documentson 023 Transfer Documents [id number]#[id number]:127 Normal [facility] aPTT PPPon 08-27-2022 aPTT Coag (PPP) [Time] 28.7 s Normal 23.0-32.4 [facility] Comment on above: Order Comment: Speci men Type: BLOOD SPECIMENOrdering Facility: [facility] Address: [address] [place] [address] Performed By: #### 3 4528-0, 52292-3 ####[facility] LABCLIA [id number] [place] [id number] [place] Auto Diffon 08-26-2022 Basophils/100 WBC (Bld) 0.5 % Normal 0.0-2.0 [facility] Comment on above: Order Comment: Order Added by Discern Expert. Performed By: #### 2 420341, 79774151, 7892897, 50752435, 9355286 #### [facility] [address] [place] [address] Basophils/Leukocytes Auto (Bld) [Pure # fraction] 0.1 E9/L Normal 0.0-0.2 [facility] Comment on above: Order Comment: Order Added by Discern Expert. Performed By: #### 2 629731, 56565976, 5642232, 86584628, 0063977 #### [facility] [address] [place] [address] Eosinophils/100 WBC (Bld) 0.9 % Normal 0.0-8.0 [facility] Comment on above: Order Comment: Order Added by Discern Expert. Performed By: #### 2 285868, 73952750, 7385233, 36305688, 0539734 #### [facility] [address] [place] [address] Eosinophils/Leukocytes Auto (Bld) [Pure # fraction] 0.1 E9/L Normal 0.0-0.5 [facility] Comment on above: Order Comment: Order Added by Discern Expert. Performed By: #### 2 141541, 20173887, 6183568, 20109105, 6604887 #### [facility] [address] [place] [address] Lymphocytes/100 WBC (Bld) 6.1 % Low 14.0-50.0 [facility] Comment on above: Order Comment: Order Added by Discern Expert. Performed By: #### 2 727063, 14072879, 1179244, 75102723, 3724564 #### [facility] [address] [place] [address] Lymphocytes/Leukocytes Auto (Bld) [Pure # fraction] 0.9 E9/L Low 1.0-4.0 [facility] Comment on above: Order Comment: Order Added by Discern Expert. Performed By: #### 2 304766, 11238973, 8119773, 16123275, 1761553 #### [facility] [address] [place] [address] Monocytes/100 WBC (Bld) 4.9 % Normal 4.0-14.0 [facility] Comment on above: Order Comment: Order Added by Discern Expert. Performed By: #### 2 627818, 24347796, 2377323, 55419635, 9141050 #### [facility] [address] [place] [address] Monocytes/Leukocytes Auto (Bld) [Pure # fraction] 0.8 E9/L Normal 0.2-1.0 [facility] Comment on above: Order Comment: Order Added by Discern Expert. Performed By: #### 2 444495, 68062873, 5762610, 70021260, 2602266 #### [facility] [address] [place] [address] Neutrophils/100 WBC (Bld) 87.6 % High 36.0-75.0 [facility] Comment on above: Order Comment: Order Added by Discern Expert. Performed By: #### 2 251794, 11570906, 2233181, 51165922, 3555231 #### [facility] [address] [place] [address] Neutrophils/Leukocytes Auto (Bld) [Pure # fraction] 13.5 E9/L High 2.0-7.5 [facility] Comment on above: Order Comment: Order Added by Discern Expert. Performed By: #### 2 913805, 60697591, 4583068, 61919394, 3384460 #### [facility] [address] [place] [address] BMPon 08-26-2022 Creatinine [Mass/Vol] 0.9 mg/dL Normal 0.5-1.3 [facility] Comment on above: Performed By: #### 2 558978, 06244293, 6521876, 47874936, 2109720 #### [facility] [address] [place] [address] Urea nitrogen [Mass/Vol] 18 mg/dL Normal 5-21 [facility] Comment on above: Performed By: #### 2 848551, 95899210, 4496339, 64175986, 0007318 #### [facility] [address] [place] [address] Urea nitrogen/Creatinine [Mass ratio] 20 No Units Normal 10-20 [facility] Comment on above: Performed By: #### 2 685114, 42834386, 8841094, 26262938, 6307097 #### [facility] [address] [place] [address] Anion gap [Moles/Vol] 13 mmol/L Normal 6-16 [facility] Comment on above: Performed By: #### 2 410443, 47774756, 4181787, 54011741, 7006200 #### [facility] [address] [place] [address] Calcium [Mass/Vol] 8.9 mg/dL Normal 8.9-11.1 [facility] Comment on above: Performed By: #### 2 503631, 37374023, 5854886, 81259170, 2682905 #### [facility] [address] [place] [address] Chloride [Moles/Vol] 105 mmol/L Normal 101-111 [facility] Comment on above: Performed By: #### 2 823123, 97094237, 4327661, 51705807, 8895293 #### [facility] [address] [place] [address] CO2 [Moles/Vol] 24 mmol/L Normal 21-31 [facility] Comment on above: Performed By: #### 2 628148, 76937371, 0790461, 06948094, 2451492 #### [facility] [address] [place] [address] Glucose [Mass/Vol] 154 mg/dL Normal 55-199 [facility] Comment on above: Result Comment: If t his glucose result represents a fasting glucose, interpretation should refer to the following reference range: 55-99 mg/dL Performed By: #### 2 065343, 48683642, 0312716, 83052497, 8692233 #### [facility] [address] [place] [address] Potassium [Moles/Vol] 4.0 mmol/L Normal 3.5-5.3 [facility] Comment on above: Performed By: #### 2 611950, 02373972, 3033907, 54599626, 7174311 #### [facility] [address] [place] [address] Sodium [Moles/Vol] 138 mmol/L Normal 135-145 [facility] Comment on above: Performed By: #### 2 389265, 01802627, 1640245, 20971068, 6520830 #### [facility] [address] [place] [address] CBC w/ Auto Diffon 3 Erythrocyte distribution width (RBC) [Ratio] 13.4 % Normal 10.9-14.2 [facility] Comment on above: Performed By: #### 2 102160, 72605533, 5521031, 05685911, 2301510 #### [facility] [address] [place] [address] Hematocrit (Bld) [Volume fraction] 40.9 % Normal 37.7-49.0 [facility] Comment on above: Performed By: #### 2 216108, 02908382, 4282915, 42762444, 9029931 #### [facility] [address] [place] [address] Hemoglobin (Bld) [Mass/Vol] 14.0 g/dL Normal 13.5-17.5 [facility] Comment on above: Performed By: #### 2 586000, 02325541, 9623074, 30693801, 6999196 #### [facility] [address] [place] [address] MCH (RBC) [Entitic mass] 31.3 pg Normal 27.0-34.0 [facility] Comment on above: Performed By: #### 2 736287, 78266933, 6503190, 83950436, 5568659 #### [facility] [address] [place] [address] MCHC (RBC) [Mass/Vol] 34.1 g/dL Normal 31.4-36.0 [facility] Comment on above: Performed By: #### 2 112453, 07706246, 7584380, 43566127, 0323552 #### [facility] [address] [place] [address] MCV (RBC) [Entitic vol] 91.9 fL Normal 80.0-100.0 [facility] Comment on above: Performed By: #### 2 545152, 47336043, 1561054, 17885302, 4840791 #### [facility] [address] [place] [address] Platelet mean volume (Bld) [Entitic vol] 9.6 fL Normal 6.4-10.8 [facility] Comment on above: Performed By: #### 2 132421, 62695466, 9798546, 75242835, 9702172 #### [facility] [address] [place] [address] Platelets (Bld) [#/Vol] 194.0 E9/L Normal 150. 0-500. 0 [facility] Comment on above: Performed By: #### 2 951211, 38943636, 9945846, 77325819, 1665795 #### [facility] [address] [place] [address] RBC (Bld) [#/Vol] 4.4 E12/L Normal 4.3-5.9 [facility] Comment on above: Performed By: #### 2 080842, 69635869, 5624483, 24516507, 8506396 #### [facility] [address] [place] [address] WBC corrected for nucl RBC Auto (Bld) [#/Vol] 15.5 E9/L High 4.0-11.0 [facility] Comment on above: Performed By: #### 2 798435, 04977159, 0348042, 90263345, 0349944 #### [facility] [address] [place] [address] CHEMISTRYOrdered By: [employer] on 08-26-2022 Anion gap [Moles/Vol] 13 mmol/L Normal 6 - 16 mEq/L [facility] Calcium [Mass/Vol] 8.9 mg/dL Normal 8.9 - 11. 1 mg/dL [facility] Chloride [Moles/Vol] 105 mmol/L Normal 101 - 1 11 mmol/L [facility] CO2 [Moles/Vol] 24 mmol/L Normal 21 - 31 mmol/L [facility] Creatinine [Mass/Vol] 0.9 mg/dL Normal 0.5 - 1.3 mg/dL [facility] GFR/1.73 sq M.predicted among non-blacks MDRD (S/P/Bld) [Vol rate/Area] 88 mL/min/1.73 m2 Normal >=59mL/min /1.73 m2 [facility] Chem S Glucose [Mass/Vol] 154 mg/dL Normal 55 - 199 mg/dL [facility] Potassium [Moles/Vol] 4.0 mmol/L Normal 3.5 - 5.3 mmol/L [facility] Sodium [Moles/Vol] 138 mmol/L Normal 135 [...] [Relative time] 1.2 {INR} Invalid Interpretation Code [facility] Auto Coag PT Coag (PPP) [Time] 12.8 s High 9.4 - 1 2.5 second(s) [facility] Auto Coag Consent for Treatmenton Consent for Treatment [id number]#[id number]:127 Normal [facility] ED Note-Physicianon 08-27-19 ED Note-Physician Basic Information Time Seen: Keith Panchal M.D. 08/26/2022 17:07 Chief Complaint pt to ER with c/o lower pelvic pain and blood clots in urine that started saturday. history of kidney stones. just had a stent placed last saturday at [facility]. sees dr ivory History of Present Illness [...] and Complexity of Problems Differential Diagnosis: [] [facility] Data External documents reviewed: [] My EKG [...] Alcohol Use, (more content not included)... Normal [facility] Comment on above: Result Comment: Elec tronically Signed By: Keith Panchal M.D.\.br\Date and Time Signed: 08/26/22 19:20 EDT HEMATOLOGYOrdered [...] 13.5 E9/L High 2.0 - 7.5 E9/L [facility]SS HEMATOLOGYOrdered By: Jani Hardy on 08-26-2022 Erythrocyte distribution width (RBC) [Ratio] 13.4 % Normal 10.9 - 14.2 % [facility] Hematocrit (Bld) [Volume fraction] 40.9 % Normal 37.7 - 49.0 % [facility] Hemoglobin (Bld) [Mass/Vol] 14.0 g/dL Normal 13.5 - 17.5 gm/dL [facility] MCH (RBC) [Entitic mass] 31.3 pg Normal 27.0 - 34.0 pg [facility]eAutoSS MCHC (RBC) [Mass/Vol] 34.1 g/dL Normal 31.4 - 36.0 gm/dL [facility] MCV (RBC) [Entitic vol] 91.9 fL Normal 80.0 - 100.0 fL [facility]eAutoSS Platelet mean volume (Bld) [Entitic vol] 9.6 fL Normal 6.4 - 10.8 fL [facility]SS Platelets (Bld) [#/Vol] 194.0 E9/L Normal 150. 0 - 500.0 E9/L [facility] HemeAutoSS RBC (Bld) [#/Vol] 4.4 E12/L Normal 4.3 - 5.9 E12/L [facility] WBC corrected for nucl RBC Auto (Bld) [#/Vol] 15.5 E9/L High 4.0 - 11.0 E9/L [facility] HemeAutoSS Laboratory - Microbiology an d Antimicrobial susceptibilityOrdered By: Jaye Bishop on 08-26-2022 Bacteria identified Cx Nom (U) No growth to date [facility] Monitor Recordon 08-26-2022 Monitor Record [id number]#[id number]:127 Normal [facility] Monitor Record [id number]#[id number]:127 Normal [facility] PT & PTTon 08-26-2022 aPTT Coag (PPP) [Time] 31.1 second(s) Normal 25.1-36.5 [facility] Comment on above: Result Comment: Para [...] the same coagulation reagent and instrumentation as [facility]. Currently there are no coagulation studies available worldwide for children to 14 days, and no normal ranges. Heparin therapeutic range (represented by Anti-Factor Xa activity of 0.2 - 0.4 U/mL) corresponds to PTT of 56.6 - 109.0 sec. Performed By: #### 2 132225, 80450892, 4278430, 59270253, 4884485 #### [facility] [address] [place] [address] INR Coag (PPP) [Relative time] 1.2 {INR} Invalid Interpretation Code [facility] Comment on above: Result Comment: INR results are specifically intended to assess patients stabilized on long-term Anticoagulation therapy suggested INR?s ?Less Intensive Anticoagulation? 2.0 ? 3.0 Conventional Range 3.0 ? 4.5 Performed By: #### 2 420540, 83575169, 8560955, 96146228, 1732271 #### [facility] [address] [place] [address] PT Coag (PPP) [Time] 12.8 second(s) High 9.4-12.5 [facility] Comment on above: Result Comment: 15 [...] the same coagulation reagent and instrumentation as [facility]. Currently there are no coagulation studies available worldwide for children to 14 days, and no normal ranges. Performed By: #### 2 858905, 22748219, 5423659, 86783589, 8380390 #### [facility] [address] [place] [address] UA With Cult Reflexon 2022 Bacteria LM Ql (Urine sed) 1+ /HPF Abnormal Trace [facility] Comment on above: Order Comment: Urina ry Catheter Insertion triggered Urinalysis With Culture Reflex order by discern. Performed By: #### 2 994586, 18329065, 9585205, 39792769, 8521056 #### [facility] [address] [place] [address] Bilirubin Ql (U) Negative Normal Negative [facility] Comment on above: Order Comment: Urina ry Catheter Insertion triggered Urinalysis With Culture Reflex order by discern. Performed By: #### 2 333762, 48396135, 2233867, 26717206, 3469869 #### [facility] [address] [place] [address] Clarity (U) CLOUDY Abnormal Clear [facility] Comment on above: Order Comment: Urina ry Catheter Insertion triggered Urinalysis With Culture Reflex order by discern. Performed By: #### 2 943699, 43774135, 8329241, 30669559, 3789434 #### [facility] [address] [place] [address] Color (U) RED Abnormal Yellow [facility] Comment on above: Order Comment: Urina ry Catheter Insertion triggered Urinalysis With Culture Reflex order by discern. Performed By: #### 2 327623, 01807081, 4969377, 34547177, 2993373 #### [facility] [address] [place] [address] Epithelial cells.squamous LM.HPF (Urine sed) [#/Area] 0-2 Normal 0-2 [facility] Comment on above: Order Comment: Urina ry Catheter Insertion triggered Urinalysis With Culture Reflex order by discern. Performed By: #### 2 [id number], [id number], [id number], [id number], [id number] #### [facility] [address] [place] [address] Glucose Test strip (U) [Mass/Vol] TRACE Abnormal Negative [facility] Comment on above: Order Comment: Urina ry Catheter Insertion triggered Urinalysis With Culture Reflex order by discern. Performed By: #### 2 [id number], [id number], [id number], [id number], [id number] #### [facility] [address] [place] [address] Hemoglobin Ql (U) 3+ Abnormal Negative [facility] Comment on above: Order Comment: Urina ry Catheter Insertion triggered Urinalysis With Culture Reflex order by discern. Performed By: #### 2 919890, [id number], [id number], [id number], [id number] #### [facility] [address] [place] [address] Ketones (U) [Mass/Vol] 1+ Abnormal Negative [facility] Comment on above: Order Comment: Urina ry Catheter Insertion triggered Urinalysis With Culture Reflex order by discern. Performed By: #### 2 556903, 10950569, 6984489, [id number], [id number] #### [facility] [address] [place] [address] Norvelt.plasma/Norvelt. RBC (Bld) [Mass ratio] >75 Abnormal 0-3 [facility] Comment on above: Order Comment: Urina ry Catheter Insertion triggered Urinalysis With Culture Reflex order by discern. Performed By: #### 2 464172, [id number], 9400104, [id number], [id number] #### [facility] [address] [place] [address] Mucus Ql (Urine sed) 1+ Normal [facility] Comment on above: Order Comment: Urina ry Catheter Insertion triggered Urinalysis With Culture Reflex order by discern. Performed By: #### 2 962323, [id number], 4968900, [id number], [id number] #### [facility] [address] [place] [address] Nitrite Ql (U) Positive Abnormal Negative [facility] Comment on above: Order Comment: Urina ry Catheter Insertion triggered Urinalysis With Culture Reflex order by discern. Performed By: #### 2 892769, [id number], 0882800, 83365783, [id number] #### [facility] [address] [place] [address] pH (U) 7.5 [pH] Invalid Interpretation Code 5.0-9.0 [facility] Comment on above: Order Comment: Urina ry Catheter Insertion triggered Urinalysis With Culture Reflex order by discern. Performed By: #### 2 698714, 03608545, 7432448, 16649576, 8644300 #### [facility] [address] [place] [address] Protein (U) [Mass/Vol] 3+ Abnormal Negative [facility] Comment on above: Order Comment: Urina ry Catheter Insertion triggered Urinalysis With Culture Reflex order by discern. Performed By: #### 2 739246, 16881778, 2653969, 96388480, 6648610 #### [facility] [address] [place] [address] Specific gravity (U) [Rel density] 1.015 Invalid Interpretation Code 1.005-1.03 0 [facility] Comment on above: Order Comment: Urina ry Catheter Insertion triggered Urinalysis With Culture Reflex order by discern. Performed By: #### 2 422350, [id number], [id number], [id number], [id number] #### [facility] [address] [place] [address] Type of Urine collection method Catheter Normal [facility] Comment on above: Order Comment: Urina ry Catheter Insertion triggered Urinalysis With Culture Reflex order by discern. Performed By: #### 2 478372, [id number], 0398739, 66779066, 8220295 #### [facility] [address] [place] [id number] Urobilinogen Qn (U) >=8.0 Abnormal 0.0-1.0 [facility] Comment on above: Order Comment: Urina ry Catheter Insertion triggered Urinalysis With Culture Reflex order by discern. Performed By: #### 2 871631, [id number], 6038732, 01065109, [id number] #### [facility] [address] [place] [id number] WBC Auto Ql (U) 2+ Abnormal Negative [facility] Comment on above: Order Comment: Urina ry Catheter Insertion triggered Urinalysis With Culture Reflex order by discern. Performed By: #### 2 718223, [id number], 7968213, [id number], 3073787 #### [facility] [address] [place] [address] WBC LM.HPF (Urine sed) [#/Area] 16-25 Abnormal 0-5 [facility] Comment on above: Order Comment: Urina ry Catheter Insertion triggered Urinalysis With Culture Reflex order by discern. Performed By: #### 2 753511, 10111273, 7119976, [id number], [id number] #### [facility] [address] [place] [address] URINALYSISOrdered By: Jordan quintana on 08-26-2022 Bacteria LM Ql (Urine sed) [...] Interpretation Code Negative [facility] UA Auto SS Norvelt.plasma/Norvelt. RBC (Bld) [Mass ratio] >75 /HPF Invalid [...] (08/26/22 6:58 PM) Invalid Interpretation Code Negative [facility] UA Auto SS WBC LM.HPF (Urine sed) [#/Area] 16-25 /HPF Invalid Interpretation Code 0-5/HPF [facility] UA Auto SS eGFRon 08-26-2022 GFR/1.73 sq M.predicted among non-blacks MDRD (S/P/Bld) [Vol rate/Area] 88 mL/min/1.73 m2 Normal >=59 [facility] Comment on above: Order Comment: Order added by Discern Expert. Result Comment: Stator Tester elio kidney disease could be indicated at eGFR's of less than 60 mL/min/1.73m2. Kidney failure is indicated at less than 15 mL/min/1.73m2. Performed By: #### 2 740100, 13384012, 5198849, 33368916, [id number] #### [facility] [address] [place] [address] Basic Metabolic Panelon Anion gap [Moles/Vol] 10.8 mmol/L Normal 6.0-15.0 [facility] Comment on above: Performed By: #### H S TROP #### [facility] [address] [place] [address] [place] Calcium [Mass/Vol] 9.0 mg/dL Normal 8.6-10.3 [facility] Comment on above: Performed By: #### H S TROP #### [facility] [address] [place] [address] [place] Chloride [Moles/Vol] 105 mmol/L Normal 98-107 [facility] Comment on above: Performed By: #### H S TROP #### [facility] [address] [place] [address] [place] CO2 [Moles/Vol] 26.0 mmol/L Normal 21.0-31.[address] [facility] Comment on above: Performed By: #### H S TROP #### [facility] [address] [place] [address] [place] Creatinine [Mass/Vol] 0.79 mg/dL Normal 0.70-1.30 [facility] Comment on above: Performed By: #### H S TROP #### [facility] [address] [place] [address] [place] Creatinine Clr Calc Pharmacy 74.81 [facility] Comment on above: Result Comment: PERF ORMED BY: [place] [address] PATHOLOGIST PHARMACY TECHNICIAN INFUSION DREW REAL M.D. Performed By: #### H S TROP #### [place] [address] [place] GFR/1.73 sq M.predicted MDRD (S/P/Bld) [Vol rate/Area] mL/min/{1.73_m2} [facility] Comment on above: Performed By: #### H S TROP #### [address] Glucose [Mass/Vol] 133 mg/dL High 70-100 [facility] Comment on above: Result Comment: Rosine Glucose Reference Range is dependent on time and content of last meal. Glucose of more than 200 mg/dL in a nonstressed, ambulatory subject supports the diagnosis of Diabetes Mellitus. ADA recommended reference range Performed By: #### H S TROP #### [place] [address] [place] Potassium [Moles/Vol] 3.8 mmol/L Normal 3.5-5.1 [facility] Comment on above: Performed By: #### H S TROP #### [place] [address] [place] Sodium [Moles/Vol] 138 mmol/L Normal 136-145 [facility] Comment on above: Performed By: #### H S TROP #### [place] [address] [place] Urea nitrogen [Mass/Vol] 20 mg/dL Normal 7-25 [facility] Comment on above: Performed By: #### H S TROP #### [place] [address] [place] Basophils Auto (Bld) [#/Vol] Ordered By: Steven Zamora on 08-22-2022 Basophils (Bld) [#/Vol] 0.0 10*3/uL 0.0-0.2 [facility] Basophils/100 WBC Auto (Bld) Ordered By: Steven Zamora on 08-22-2022 Basophils/100 WBC (Bld) 0.3 % . [facility] Calcium [Mass/volume] in Ser um or PlasmaOrdered By: Steven Zamora on 08-22-2022 Calcium [Mass/Vol] 9.0 mg/dL 8.6-10.3 [facility] Carbon dioxide, total [Moles /volume] in Serum or PlasmaOrdered By: Steven Zamora on 08-22-2022 CO2 [Moles/Vol] 26.0 mmol/L 21.0-31.[address] [facility] Chloride [Moles/volume] in S jamin or PlasmaOrdered By: Steven Zamora on 08-22-2022 Chloride [Moles/Vol] 105 mmol/L 98-107 [facility] Complete Blood Count Auto Di ffon 08-22-2022 Basophils (Bld) [#/Vol] 0.0 10*3/uL Normal 0.0-0.2 [facility] Comment on above: Result Comment: PERF ORMED BY: [place] [address] PATHOLOGIST PHARMACY TECHNICIAN INFUSION DREW REAL M.D. Performed By: #### H S TROP #### [facility] [address] [place] [address] [place] Basophils/100 WBC (Bld) 0.3 % Normal . [facility] Comment on above: Performed By: #### H S TROP #### [facility] [address] [place] [address] [place] Eosinophils (Bld) [#/Vol] 0.1 10*3/uL Normal 0.0-0.45 [facility] Comment on above: Performed By: #### H S TROP #### [facility] [address] [place] [address] [place] Eosinophils/100 WBC (Bld) 1.6 % Normal . [facility] Comment on above: Performed By: #### H S TROP #### [facility] [address] Erythrocyte distribution width (RBC) [Ratio] 13.7 % Normal 12.0-14.8 [facility] Comment on above: Performed By: #### H S TROP #### [facility] [address] Hematocrit (Bld) [Volume fraction] 41.1 % Normal 38.8-50.0 [facility] Comment on above: Performed By: #### H S TROP #### [address] Hemoglobin (Bld) [Mass/Vol] 13.9 g/dL Normal 13.0-17.0 [facility] Comment on above: Performed By: #### H S TROP #### [address] Lymphocytes (Bld) [#/Vol] 1.4 10*3/uL Normal 1.00-4.8 [facility] Comment on above: Performed By: #### H S TROP #### [address] Lymphocytes/100 WBC (Bld) 15.9 % Normal . [facility] Comment on above: Performed By: #### H S TROP #### [address] MCH (RBC) [Entitic mass] 31.5 pg Normal 27.5-35.2 [facility] Comment on above: Performed By: #### H S TROP #### [address] MCV (RBC) [Entitic vol] 92.8 fL Normal 83.5-101 [facility] Comment on above: Performed By: #### H S TROP #### [address] Mean Corpuscular HGB Conc 33.9 g/dL Normal 32.5-35.6 [facility] Comment on above: Performed By: #### H S TROP #### [place] [address] Monocytes (Bld) [#/Vol] 0.9 10*3/uL High 0.0-0.8 [facility] Comment on above: Performed By: #### H S TROP #### [address] Monocytes/100 WBC (Bld) 9.7 % Normal . [facility] Comment on above: Performed By: #### H S TROP #### [address] Neutrophils (Bld) [#/Vol] 6.4 10*3/uL Normal 1.8-7.7 [facility] Comment on above: Performed By: #### H S TROP #### [address] Neutrophils/100 WBC (Bld) 72.5 % Normal . [facility] Comment on above: Performed By: #### H S TROP #### [address] NRBC% 0.1 /100{WBC} Normal 0-0.5 [facility] Comment on above: Performed By: #### H S TROP #### [address] Platelet mean volume (Bld) [Entitic vol] 9.6 fL Normal 6.6-10.1 [facility] Comment on above: Performed By: #### H S TROP #### [address] Platelets (Bld) [#/Vol] 162 10*3/uL Normal 150-450 [facility] Comment on above: Performed By: #### H S TROP #### [place] [address] [place] RBC (Bld) [#/Vol] 4.43 10*6/uL Normal 3.90-5.60 [facility] Comment on above: Performed By: #### H S TROP #### [place] [address] [place] WBC (Bld) [#/Vol] 8.8 10*3/uL Normal 4.1-10.5 [facility] Comment on above: Performed By: #### H S TROP #### [address] Creatinine [Mass/volume] in Serum or PlasmaOrdered By: Steven Zamora on 08-22-2022 Creatinine [Mass/Vol] 0.79 mg/dL 0.70-1.30 [facility] ECG 12 lead ECGon 08-22-2022 ECG 12 lead ECG [facility] [address] Electrocardiograph Report Signed Patient: Olaf Briones MR#: [id number] [birth year] : 1945 Acct:[id number] Age/Sex: 77 / M ADM Date: 08/20/22 Loc: Room: [address] [place] [address] Type: ADM IN Attending Dr: Steven Zamora [...] Signed By Joshua Atwood DO 08/22 0906 [facility] ECH echo transthoracicon ECH echo transthoracic [facility] [address] [place] [id number] Echocardiogram Signed Patient: Olaf Briones MR#: [id number] 2 : 1945 Acct:[id number] Age/Sex: 77 / M ADM Date: 08/20/22 Loc: Room: 8X5235-4 Type: ADM IN Attending Dr: Steven Zamora DO Ordering Provider: Steven Zamora DO Date of Service: 08/21/2206/10/499 ECH/ECH echo transthoracic: Inferolateral STEMI Copies to: Rojas Resendiz MD, FACC Steven Zmaora DO BSA: 1.9 m2 BP: 116/65 mmHg [...] V2 VTI: 27.1 cm MICHAEL(I,D): 3.4 cm2 MIHCAEL(V,D): 3.5 cm2 __ LV V1 max PG: TV max PG: TR max chela: 4.3 mmHg 18.0 mmHg 210.4 cm/sec LV V1 mean PG: TR max P.7 mmHg 2.5 mmHg LV V1 mean: 75.9 cm/sec LV V1 VTI: 21.3 cm Transcribed By: SCV Performed At: 08/22/22 0837 Signed By: Rojas Resendiz MD, [facility] 08/22/22 1514 Normal [facility] Eosinophils Auto (Bld) [#/Vo l]Ordered By: Steven Zamora on 08-22-2022 Eosinophils (Bld) [#/Vol] 0.1 10*3/uL 0.0-0.45 [facility] Eosinophils/100 WBC Auto (Bl d)Ordered By: Steven Zamora on 08-22-2022 Eosinophils/100 WBC (Bld) 1.6 % . [facility] Erythrocyte distribution wid th Auto (RBC) [Ratio]Ordered By: Steven Zamora on 08-22-2022 Erythrocyte distribution width (RBC) [Ratio] 13.7 % 12.0-14.8 [facility] Glucose [Mass/volume] in Ser um or PlasmaOrdered By: Steven Zamora on 08-22-2022 Glucose [Mass/Vol] 133 mg/dL 70-100 [facility] Comment on above: ADA recommended refe rence rangeRandom Glucose Reference Range is dependent on time and content of last meal. Glucose of more than 200 mg/dL in a nonstressed, ambulatory subject supports the diagnosis of Diabetes Mellitus. Hematocrit Auto (Bld) [Volum e fraction]Ordered By: Steven Zamora on 08-22-2022 Hematocrit (Bld) [Volume fraction] 41.1 % 38.8-50.0 [facility] Hemoglobin [Mass/volume] in BloodOrdered By: Steven Zamora on 08-22-2022 Hemoglobin (Bld) [Mass/Vol] 13.9 g/dL 13.0-17.0 [facility] Leukocytes [#/volume] correc betty for nucleated erythrocytes in Blood by Automated counOrdered By: Steven Zamora on 08-22-2022 WBC corrected for nucl RBC Auto (Bld) [#/Vol] 8.8 10*3/uL 4.1-10.5 [facility] Lymphocytes Auto (Bld) [#/Vo l]Ordered By: Steven Zamora on 08-22-2022 Lymphocytes (Bld) [#/Vol] 1.4 10*3/uL 1.00-4.8 [facility] Lymphocytes/100 WBC Auto (Bl d)Ordered By: Steven Zamora on 08-22-2022 Lymphocytes/100 WBC (Bld) 15.9 % . [facility] MCH Auto (RBC) [Entitic mass ]Ordered By: Steven Zamora on 08-22-2022 MCH (RBC) [Entitic mass] 31.5 pg 27.5-35.2 [facility] MCHC Auto (RBC) [Mass/Vol]Or dered By: Steven Zamora on 08-22-2022 MCHC (RBC) [Mass/Vol] 33.9 g/dL 32.5-35.6 [facility] MCV Auto (RBC) [Entitic vol] Ordered By: Steven Zamora on 08-22-2022 MCV (RBC) [Entitic vol] 92.8 fL 83.5-101 [facility] Monocytes Auto (Bld) [#/Vol] Ordered By: Steven Zamora on 08-22-2022 Monocytes (Bld) [#/Vol] 0.9 10*3/uL 0.0-0.8 [facility] Monocytes/100 WBC Auto (Bld) Ordered By: Steven Zamora on 08-22-2022 Monocytes/100 WBC (Bld) 9.7 % . [facility] Neutrophils Auto (Bld) [#/Vo l]Ordered By: Steven Zamora on 08-22-2022 Neutrophils (Bld) [#/Vol] 6.4 10*3/uL 1.8-7.7 [facility] Neutrophils/100 WBC Auto (Bl d)Ordered By: Steven Zamora on 08-22-2022 Neutrophils/100 WBC (Bld) 72.5 % . [facility] No Panel InformationOrdered By: Steven Zamora on 08-22-2022 Estimated GFR (CKD-EPI) > 60.0 mL/Min [facility] Creatinine Clearance (Chem 74.81 [facility] No Panel Informationon 08-22 0.0\S\0.0 Normal 0.0-0.2 [facility] ed[address]ardo [address] DO Work Phone: Comment on above: PERFORMED BY:[facility] [place], [place] [id number] MEDICAL DIRECTORDREW REAL M.D. 0.1\S\0.1 Normal 0-0.5 [facility] [address] DO Work Phone: 0.9\S\0.9 above high threshold 0.0-0.8 [facility] [address] DO Work Phone: 1.4\S\1.4 Normal 1.00-4.8 [facility] 250 DO Work Phone: [phone] 6.4\S\6.4 Normal 1.8-7.7 [facility] [address] DO Work Phone: [phone] 0.3\S\0.3 Normal . [facility] DO Work Phone: [phone] 1.6\S\1.6 Normal . [facility] DO Work Phone: [phone] 9.7\S\9.7 Normal . [facility] DO Work Phone: 15.9\S\15.9 Normal . [facility] DO Work Phone: [phone] 72.5\S\72.5 Normal . [facility] DO Work Phone: [phone] 9.6\S\9.6 Normal 6.6-10.1 [facility] DO Work Phone: [phone] 162\S\162 Normal 150-450 [facility] DO Work Phone: [phone] 13.7\S\13.7 Normal 12.0-14.8 [facility] DO Work Phone: [phone] 33.9\S\33.9 Normal 32.5-35.6 [facility] DO Work Phone: [phone] 31.5\S\31.5 Normal 27.5-35.2 [facility] [place] eduardo 250 DO Work Phone: [phone] 92.8\S\92.8 Normal 83.5-101 [facility] ed[address]ardo 250 DO Work Phone: [phone] 41.1\S\41.1 Normal 38.8-50.0 [facility] [place] eduardo 250 DO Work Phone: [phone] 13.9\S\13.9 Normal 13.0-17.0 [facility] [place] eduardo 250 DO Work Phone: [phone] 4.43\S\4.43 Normal 3.90-5.60 [facility] [place] eduardo 250 DO Work Phone: [phone] 8.8\S\8.8 Normal 4.1-10.5 [facility] DO Work Phone: [phone] > 60.0 Normal [facility] 250 DO Work Phone: [phone] 10.8\S\10.8 Normal 6.0-15.0 [facility] [place] eduardo 250 DO Work Phone: 74.81\S\74.81 Normal [facility] eduardo 250 DO Work Phone: Comment on above: PERFORMED BY:[facility] [place] [id number] MEDICAL DIRECTORDREW REAL M.D. 9.0\S\9.0 Normal 8.6-10.3 [facility] ed[address]ardo 250 DO Work Phone: 26.0\S\26.0 Normal 21.0-31.0 [facility] ed[address]ardo 250 DO Work Phone: 105\S\105 Normal 98-107 [facility] ed[address]ardo 250 DO Work Phone: 3.8\S\3.8 Normal 3.5-5.1 [facility] ed[address]ardo 250 DO Work Phone: 138\S\138 Normal 136-145 [facility] ed[address]ardo 250 DO Work Phone: 0.79\S\0.79 Normal 0.70-1.30 [facility] ed[address]ardo 250 DO Work Phone: 20\S\20 Normal 7-25 [facility] de [place] 250 DO Work Phone: 133\S\133 above high threshold 70-100 [facility] HeartRed Hawk InteractiveCamacho eduardo 250 DO Work Phone: Comment on [...] RBC Auto Ql (Bld) 0.1 /100{WBC} 0-0.5 [facility] Platelet mean volume Auto (B ld) [Entitic vol]Ordered By: Steven Zamora on 08-22-2022 Platelet mean volume (Bld) [Entitic vol] 9.6 fL 6.6-10.1 [facility] Platelets Auto (Bld) [#/Vol] Ordered By: Steven Zamora on 08-22-2022 Platelets (Bld) [#/Vol] 162 10*3/uL 150-450 [facility] Potassium [Moles/volume] in Serum or PlasmaOrdered By: Steven Zamora on 08-22-2022 Potassium [Moles/Vol] 3.8 mmol/L 3.5-5.1 [facility] RBC Auto (Bld) [#/Vol]Ordere d By: Steven Zamora on 08-22-2022 RBC (Bld) [#/Vol] 4.43 10*6/uL 3.90-5.60 [facility] Serum or plasma anion gap de terminationOrdered By: Steven Zamora on 08-22-2022 Anion gap [Moles/Vol] 10.8 mmol/L 6.0-15.0 [facility] Sodium [Moles/volume] in Ser um or PlasmaOrdered By: Steven Zamora on 08-22-2022 Sodium [Moles/Vol] 138 mmol/L 136-145 [facility] Urea nitrogen [Mass/volume] in Serum or PlasmaOrdered By: Steven Zamora on 08-22-2022 Urea nitrogen [Mass/Vol] 20 mg/dL 7-25 [facility] WBC Auto (Bld) [#/Vol]Ordere d By: Steven Zamora on 08-22-2022 WBC (Bld) [#/Vol] 8.8 10*3/uL 4.1-10.5 [facility] Basic Metabolic Panelon Anion gap [Moles/Vol] 11.7 mmol/L Normal 6.0-15.0 [facility] Comment on above: Performed By: #### H S TROP #### [address] Calcium [Mass/Vol] 9.4 mg/dL Normal 8.6-10.3 [facility] Comment on above: Performed By: #### H S TROP #### [facility] [address] [place] [address] [place] Chloride [Moles/Vol] 103 mmol/L Normal 98-107 [facility] Comment on above: Performed By: #### H S TROP #### [facility] [address] [place] [address] [place] CO2 [Moles/Vol] 27.1 mmol/L Normal 21.0-31.[address] [facility] Comment on above: Performed By: #### H S TROP #### [facility] [address] [place] [address] [place] Creatinine [Mass/Vol] 0.71 mg/dL Normal 0.70-1.30 [facility] Comment on above: Performed By: #### H S TROP #### [place] [address] [place] Creatinine Clr Calc Pharmacy 74.81 [facility] Comment on above: Performed By: #### H S TROP #### [place] [address] [place] GFR/1.73 sq M.predicted MDRD (S/P/Bld) [Vol rate/Area] mL/min/{1.73_m2} [facility] Comment on above: Performed By: #### H S TROP #### [place] [address] [place] Glucose [Mass/Vol] 162 mg/dL High 70-100 [facility] Comment on above: Result Comment: Rosine Glucose Reference Range is dependent on time and content of last meal. Glucose of more than 200 mg/dL in a nonstressed, ambulatory subject supports the diagnosis of Diabetes Mellitus. ADA recommended reference range Performed By: #### H S TROP #### [facility] [address] [place] [address] [place] Potassium [Moles/Vol] 3.8 mmol/L Normal 3.5-5.1 [facility] Comment on above: Performed By: #### H S TROP #### [place] [address] [place] Sodium [Moles/Vol] 138 mmol/L Normal 136-145 [facility] Comment on above: Performed By: #### H S TROP #### [facility] [address] [place] [address] [place] Urea nitrogen [Mass/Vol] 12 mg/dL Normal 7-25 [facility] Comment on above: Performed By: #### H S TROP #### [facility] [address] [place] [address] [place] Cholesterol [Mass/volume] in Serum or PlasmaOrdered By: Steven Zamora on 08-21-2022 Cholesterol [Mass/Vol] 132 mg/dL 140-200 [facility] Comment on above: Chol less than 200 m g/dl low riskChol 201-239 mg/dl borderline riskChol 240 mg/dl and greater high risk Cholesterol in LDL Calc [Mas s/Vol]Ordered By: Steven Zamora on 08-21-2022 Cholesterol in LDL [Mass/Vol] 62 mg/dL 0-100 [facility] Comment on above: LDL ATP III CLASSIFI CATIONLDL less than 100 mg/dL OptimalLDL 100-129 mg/dL Near or above optimalLDL 130-159 mg/dL Borderline highLDL 160-189 mg/dL HighLDL greater than 189 mg/dL Very high Cholesterol in VLDL Calc [Ma ss/Vol]Ordered By: Steven Zamora on 08-21-2022 Cholesterol in VLDL [Mass/Vol] 24 mg/dL [facility] Complete Blood Count Auto Di ffon 08-21-2022 Basophils (Bld) [#/Vol] 0.0 10*3/uL Normal 0.0-0.2 [facility] Comment on above: Result Comment: PERF ORMED BY: [place] [address] PATHOLOGIST PHARMACY TECHNICIAN INFUSION DREW REAL M.D. Performed By: #### H S TROP #### [facility] [address] [place] [address] [place] Basophils/100 WBC (Bld) 0.2 % Normal . [facility] Comment on above: Performed By: #### H S TROP #### [facility] [address] [place] [address] [place] Eosinophils (Bld) [#/Vol] 0.0 10*3/uL Normal 0.0-0.45 [facility] Comment on above: Performed By: #### H S TROP #### [address] Eosinophils/100 WBC (Bld) 0.1 % Normal . [facility] Comment on above: Performed By: #### H S TROP #### [address] Erythrocyte distribution width (RBC) [Ratio] 13.5 % Normal 12.0-14.8 [facility] Comment on above: Performed By: #### H S TROP #### [address] Hematocrit (Bld) [Volume fraction] 42.7 % Normal 38.8-50.0 [facility] Comment on above: Performed By: #### H S TROP #### [address] Hemoglobin (Bld) [Mass/Vol] 14.6 g/dL Normal 13.0-17.0 [facility] Comment on above: Performed By: #### H S TROP #### [address] Lymphocytes (Bld) [#/Vol] 1.1 10*3/uL Normal 1.00-4.8 [facility] Comment on above: Performed By: #### H S TROP #### [address] Lymphocytes/100 WBC (Bld) 8.2 % Normal . [facility] Comment on above: Performed By: #### H S TROP #### [address] MCH (RBC) [Entitic mass] 31.4 pg Normal 27.5-35.2 [facility] Comment on above: Performed By: #### H S TROP #### [address] MCV (RBC) [Entitic vol] 91.6 fL Normal 83.5-101 [facility] Comment on above: Performed By: #### H S TROP #### [facility] [address] Mean Corpuscular HGB Conc 34.3 g/dL Normal 32.5-35.6 [facility] Comment on above: Performed By: #### H S TROP #### [facility] [address] [place] [address] [place] Monocytes (Bld) [#/Vol] 0.8 10*3/uL Normal 0.0-0.8 [facility] Comment on above: Performed By: #### H S TROP #### [place] [address] [place] Monocytes/100 WBC (Bld) 6.1 % Normal . [facility] Comment on above: Performed By: #### H S TROP #### [address] Neutrophils (Bld) [#/Vol] 11.7 10*3/uL High 1.8-7.7 [facility] Comment on above: Performed By: #### H S TROP #### [place] [address] [place] Neutrophils/100 WBC (Bld) 85.4 % Normal . [facility] Comment on above: Performed By: #### H S TROP #### [place] [address] [place] NRBC% 0.0 /100{WBC} Normal 0-0.5 [facility] Comment on above: Performed By: #### H S TROP #### [place] [address] [place] Platelet mean volume (Bld) [Entitic vol] 9.5 fL Normal 6.6-10.1 [facility] Comment on above: Performed By: #### H S TROP #### [facility] [address] [place] [address] Platelets (Bld) [#/Vol] 171 10*3/uL Normal 150-450 [facility] Comment on above: Performed By: #### H S TROP #### [facility] [address] [place] [address] [place] RBC (Bld) [#/Vol] 4.66 10*6/uL Normal 3.90-5.60 [facility] Comment on above: Performed By: #### H S TROP #### [facility] [address] [place] [id number] [facility] WBC (Bld) [#/Vol] 13.6 10*3/uL High 4.1-10.5 [facility] Comment on above: Performed By: #### H S TROP #### [facility] [address] ECG 12 lead ECGon 08-21-2022 ECG 12 lead ECG [facility] Main Jber [address] [place] [address] Electrocardiograph Report Signed Patient: Olaf Briones MR#: [id number] [birth year] : 1945 Acct:[id number] Age/Sex: 77 / M ADM Date: 08/20/22 Loc: Room: [address] [place] [address] Type: REG SDC Attending Dr: Steven Zamora [...] By Joshua Atwood DO 08/21 0917 Normal [facility] Glucose Glucometer (BldC) [M ass/Vol]Ordered By: Steven Zamora on 08-21-2022 Glucose [Mass/Vol] 121 mg/dL [facility] Comment on above: Random Glucose Refer ence Range is dependent on time and content of last meal. Glucose of more than 200 mg/dL in a nonstressed, ambulatory subject supports the diagnosis of Diabetes Mellitus. Glucose Poct Glucometerson 0 08-21-2022 Commemt1 Glu2: Cleaned Meter [facility] Comment on above: Result Comment: PERF ORMED BY: [place] [address] PATHOLOGIST PHARMACY TECHNICIAN INFUSION DREW REAL M.D. Performed By: #### H S TROP #### [address] Glucose [Mass/Vol] 121 mg/dL Normal [facility] Comment on above: Result Comment: Rosine om Glucose Reference Range is dependent on time and content of last meal. Glucose of more than 200 mg/dL in a nonstressed, ambulatory subject supports the diagnosis of Diabetes Mellitus. Performed By: #### H S TROP #### [address] Commemt1 Glu2: Cleaned Meter [facility] Comment on above: Result Comment: PERF ORMED BY: [place] [address] PATHOLOGIST PHARMACY TECHNICIAN INFUSION DREW REAL M.D. Performed By: #### H S TROP #### [address] Glucose [Mass/Vol] 137 mg/dL Normal [facility] Comment on above: Result Comment: Rosine om Glucose Reference Range is dependent on time and content of last meal. Glucose of more than 200 mg/dL in a nonstressed, ambulatory subject supports the diagnosis of Diabetes Mellitus. Performed By: #### H S TROP #### [address] Laboratory - Chemistry and C hemistry - challengeon 08-21-2022 Cholesterol [Mass/Vol] 132\S\132 below low threshold 140-200 [facility]Sandu eduardo 250 DO Work Phone: Comment on above: Chol less than 200 m g/dl low risk Chol 201-239 mg/dl borderline risk Chol 240 mg/dl and greater high risk Cholesterol in LDL [Mass/Vol] 62\S\62 Normal 0-100 -[facility]u eduardo 250 DO Work Phone: Comment on above: LDL ATP III CLASSIFI CATION LDL less than 100 mg/dL Optimal LDL 100-129 mg/dL Near or above optimal LDL 130-159 mg/dL Borderline high LDL 160-189 mg/dL High LDL greater than 189 mg/dL Very high Lipid Panelon 08-21-2022 Cholesterol [Mass/Vol] 132 mg/dL Low 140-200 [facility] Comment on above: Result Comment: Chol less than 200 mg/dl low risk Chol 201-239 mg/dl borderline risk Chol 240 mg/dl and greater high risk Performed By: #### H S TROP #### [facility] [address] [place] [phone] [place] Cholesterol in HDL [Mass/Vol] 45 mg/dL Normal 23-92 [facility] Comment on above: Result Comment: HDL CHOL ATP-III CLASSIFICATION Cardiovascular Risk HDL > or equal to 60 mg/dL LOW HDL < 40 mg/dL HIGH Performed By: #### H S TROP #### [facility] [address] [place] [phone] [place] Cholesterol.total/Reny sterol in HDL [Mass ratio] 2.9 {ratio} Normal <5.0 [facility] Comment on above: Result Comment: PERF ORMED BY: [facility] [address] [place] [address] PATHOLOGIST PHARMACY TECHNICIAN INFUSION DREW REAL M.D. Performed By: #### H S TROP #### [facility] [address] [place] [phone] [place] LDL Cholesterol,Calculated 62 mg/dL Normal 0-100 [facility] Comment on above: Result Comment: LDL ATP III CLASSIFICATION LDL less than 100 mg/dL Optimal LDL 100-129 mg/dL Near or above optimal LDL 130-159 mg/dL Borderline high LDL 160-189 mg/dL High LDL greater than 189 mg/dL Very high Performed By: #### H S TROP #### [facility] [address] Triglyceride w/Reflex 124 mg/dL Normal 0-149 [facility] Comment on above: Result Comment: TRIG ATP III CLASSIFICATION TRIG less than 150 mg/dL Normal TRIG 150-199 mg/dL Borderline high TRIG 200-500 mg/dL High TRIG greater than 500 mg/dL Very high Standard traceable to the Center for Disease Conrtrol and Prevention (CDC) test method. Performed By: #### H S TROP #### [facility] [address] VLDL CHOLESTEROL 24 mg/dL Normal [facility] Comment on above: Performed By: #### H S TROP #### [facility] [address] No Panel InformationOrdered By: Steven Zamora on 08-21-2022 Bedside Glucose Comment Glu2: cleaned meter [facility] No Panel Informationon 08-21 Glu2: Cleaned Meter Normal [facility]Sandu eduardo 250 DO Work Phone: Comment on above: PERFORMED BY:[place] [address] [address] [place], [place] [phone] MEDICAL DIRECTORDREW REAL M.D. 121\S\121 Normal [facility]Sandu eduardo 250 DO Work Phone: Comment on above: Random Glucose Refer ence Range is dependent on time and content of last meal. Glucose of more than 200 mg/dL in a nonstressed, ambulatory subject supports the diagnosis of Diabetes Mellitus. Glu2: Cleaned Meter Normal [facility]Sand[facility] eduardo 250 DO Work Phone: Comment on above: PERFORMED BY:[place] [address] [address] [place], [place] [phone] MEDICAL DIRECTORDREW REAL M.D. 137\S\137 Normal [facility]u eduardo 250 DO Work Phone: Comment on above: Random Glucose Refer ence Range is dependent on time and content of last meal. Glucose of more than 200 mg/dL in a nonstressed, ambulatory subject supports the diagnosis of Diabetes Mellitus. 0.0\S\0.0 Normal 0-0.5 -[facility] eduardo 250 DO Work Phone: Comment on above: PERFORMED BY:[facility] [place], [place] [phone] MEDICAL DIRECTORDREW REAL M.D. 0.8\S\0.8 Normal 0.0-0.8 [facility] eduardo 250 DO Work Phone: [phone] 1.1\S\1.1 Normal 1.00-4.8 -[facility] eduardo 250 DO Work Phone: [phone] 11.7\S\11.7 Normal 6.0-15.0 [facility] eduardo 250 DO Work Phone: [phone] 0.2\S\0.2 Normal . [facility] eduardo 250 DO Work Phone: [phone] 0.1\S\0.1 Normal . [facility] eduardo 250 DO Work Phone: [phone] 6.1\S\6.1 Normal . [facility] eduardo 250 DO Work Phone: [phone] 8.2\S\8.2 Normal . [facility] eduardo 250 DO Work Phone: [phone] 85.4\S\85.4 Normal . [facility]Sandu eduardo 250 DO Work Phone: [phone] 9.5\S\9.5 Normal 6.6-10.1 [facility] eduardo 250 DO Work Phone: [phone] 171\S\171 Normal 150-450 [facility] eduardo 250 DO Work Phone: [phone] 13.5\S\13.5 Normal 12.0-14.8 [facility] eduardo 250 DO Work Phone: [phone] 34.3\S\34.3 Normal 32.5-35.6 [facility] eduardo 250 DO Work Phone: [phone] 31.4\S\31.4 Normal 27.5-35.2 [facility] eduardo 250 DO Work Phone: [phone] 91.6\S\91.6 Normal 83.5-101 [facility] eduardo 250 DO Work Phone: [phone] 42.7\S\42.7 Normal 38.8-50.0 [facility] eduardo 250 DO Work Phone: [phone] 14.6\S\14.6 Normal 13.0-17.0 [facility] eduardo 250 DO Work Phone: [phone] 4.66\S\4.66 Normal 3.90-5.60 [facility] eduardo 250 DO Work Phone: [phone] 13.6\S\13.6 above high threshold 4.1-10.5 [facility] eduardo 250 DO Work Phone: [phone] > 60.0 Normal [facility] eduardo 250 DO Work Phone: [phone] 74.81\S\74.81 Normal [facility] eduardo 250 DO Work Phone: [phone] 9.4\S\9.4 Normal 8.6-10.3 [facility] Fargou eduardo 250 DO Work Phone: [phone] 27.1\S\27.1 Normal 21.0-31.0 [facility] Fargou eduardo 250 DO Work Phone: [phone] 103\S\103 Normal 98-107 [facility] eduardo 250 DO Work Phone: [phone] 3.8\S\3.8 Normal 3.5-5.1 [facility] Fargou eduardo 250 DO Work Phone: 138\S\138 Normal 136-145 [facility] Carter clark 250 DO Work Phone: 0.71\S\0.71 Normal 0.70-1.30 [facility] Carter Adams DO Work Phone: 12\S\12 Normal 7-25 [facility] Carter clark 250 DO Work Phone: 162\S\162 above high threshold 70-100 [facility] Carter Adams DO Work Phone: Comment on above: Random Glucose Refer ence Range is dependent on time and content of last meal. Glucose of more than 200 mg/dL in a nonstressed, ambulatory subject supports the diagnosis of Diabetes Mellitus. ADA recommended reference range 2.9\S\2.9 Normal <5.0 [facility] Carter Adams DO Work Phone: Comment on above: PERFORMED BY:[facility] [place], [place] [phone] MEDICAL DIRECTORDERW REAL M.D. 24\S\24 Normal [facility] Carter Adams DO Work Phone: 124\S\124 Normal 0-149 [facility] Carter Adams DO Work Phone: Comment on above: TRIG ATP III CLASSIF ICATION TRIG less than 150 mg/dL Normal TRIG 150-199 mg/dL Borderline high TRIG 200-500 mg/dL High TRIG greater than 500 mg/dL Very high Standard traceable to the Center for Disease Conrtrol and Prevention (CDC) test method. 45\S\45 Normal 23-92 [facility] Carter Adams DO Work Phone: Comment on above: HDL CHOL ATP-III CLA SSIFICATION Cardiovascular Risk HDL > or equal to 60 mg/dL LOW HDL < 40 mg/dL HIGH 09403.9\S\72337.9 Critically high 0.0-20.0 [facility] 250 DO Work Phone: Comment on above: Critical Result : Ca lled to and read back by: MARC BUSTILLOS at: 08/21/2022 06:30:29 by:[id number] BY:[address] [place], [place] [phone] MEDICAL DIRECTORDREW REAL M.D. 29216.9\S\99275.9 Critically high 0.0-20.0 [facility] 250 DO Work Phone: Comment on above: Critical Result : Ca lled to and read back by: RIDGE WATERS at: 08/21/2022 04:23:36 by:[id number] BY:[address] [place], [place] [phone] MEDICAL DIRECTORDREW REAL M.D. 61833.3\S\01937.3 Critically high 0.0-20.0 [facility] 250 DO Work Phone: Comment on above: Critical Result : Ca lled to and read back by: SALLY BUSTILLOS at: 08/21/2022 00:52:26 by:[id number] BY:[place] [address] [address] [place], [place] [phone] MEDICAL DIRECTORDREW REAL M.D. Serum or plasma high density lipoprotein (HDL) cholesterol measurementOrdered By: Steven Zamora on 08-21-2022 Cholesterol in HDL [Mass/Vol] 45 mg/dL 23- [facility] Comment on above: HDL CHOL ATP-III CLA SSIFICATION Cardiovascular RiskHDL > or equal to 60 mg/dL LOWHDL < 40 mg/dL HIGH Serum or plasma total choles terol/high density lipoprotein (HDL) cholesterol mass ratOrdered By: Steven Zamora on 08-21-2022 Cholesterol.total/Reny sterol in HDL [Mass ratio] 2.9 {ratio} <5.0 [facility] Triglyceride [Mass/volume] i n Serum or PlasmaOrdered By: Steven Zamora on 08-21-2022 Triglyceride [Mass/Vol] 124 mg/dL 0-149 [facility] Comment on above: TRIG ATP III CLASSIF ICATIONTRIG less than 150 mg/dL NormalTRIG 150-199 mg/dL Borderline highTRIG 200-500 mg/dL High TRIG greater than 500 mg/dL Very highStandard traceable to the Center for Disease Conrtrol and Prevention (CDC) test method. Troponin I High Sensitivityo n 08-21-2022 Troponin I High Sensitivity 98765.9 pg/mL Off scale high 0.0-20.0 [facility] Comment on above: Result Comment: Crit ical Result : Called to and read back by: MARC BUSTILLOS at: 08/21/2022 06:30:29 by:[id number] PERFORMED BY: [place] [address] PATHOLOGIST PHARMACY TECHNICIAN INFUSION DREW REAL M.D. Performed By: #### H S TROP #### [facility] [address] [place] [address] Troponin I High Sensitivity 34115.9 pg/mL Off scale high 0.0-20.0 [facility] Comment on above: Result Comment: Crit ical Result : Called to and read back by: RIDGE WATERS at: 08/21/2022 04:23:36 by:[id number] PERFORMED BY: [place] [address] PATHOLOGIST PHARMACY TECHNICIAN INFUSION DREW REAL M.D. Performed By: #### H S TROP #### [facility] [address] [place] [address] Troponin I High Sensitivity 49379.3 pg/mL Off scale high 0.0-20.0 [facility] Comment on above: Result Comment: Crit ical Result : Called to and read back by: SALLY BUSTILLOS at: 08/21/2022 00:52:26 by:[id number] PERFORMED BY: [place] [address] PATHOLOGIST PHARMACY TECHNICIAN INFUSION DREW REAL M.D. Performed By: #### H S TROP #### [facility] [address] Troponin I.cardiac [Mass/vol ume] in Serum or Plasma by Detection limit <= 0.01 ng/Ordered By: Steven Zamora on 08-21-2022 Troponin I.cardiac DL <= 0.01 ng/mL [Mass/Vol] 11655.9 pg/mL 0.0-20.0 [facility] Comment on above: Critical Result : Ca lled to and read back by: MARC BUSTILLOS at: 08/21/2022 06:30:29 by:[id number] Activated partial thrombopla stin time (aPTT) in platelet poor plasma by coagulation aOrdered By: Cirilo Wise on 08-20-2022 aPTT Coag (PPP) [Time] 25.1 s 25.1-36.5 [facility] B-Type Natriuretic Peptideon 08-20-2022 Natriuretic peptide B (Bld) [Mass/Vol] 24.0 pg/mL Normal 5-100 [facility] Comment on above: Result Comment: PERF ORMED BY: [place] [address] PATHOLOGIST PHARMACY TECHNICIAN INFUSION DREW REAL M.D. Performed By: #### B BRIDGE TOLL COLLECTOR, CK, CBC, HS TROP, BMP, PT, PTT #### [address] Basic Metabolic Panelon 070 Anion gap [Moles/Vol] 14.1 mmol/L Normal 6.0-15.0 [facility] Comment on above: Performed By: #### B BRIDGE TOLL COLLECTOR, CK, CBC, HS TROP, BMP, PT, PTT #### [facility] [address] Calcium [Mass/Vol] 9.4 mg/dL Normal 8.6-10.3 [facility] Comment on above: Performed By: #### B BRIDGE TOLL COLLECTOR, CK, CBC, HS TROP, BMP, PT, PTT #### [address] Chloride [Moles/Vol] 105 mmol/L Normal 98-107 [facility] Comment on above: Performed By: #### B BRIDGE TOLL COLLECTOR, CK, CBC, HS TROP, BMP, PT, PTT #### [facility] [address] CO2 [Moles/Vol] 24.3 mmol/L Normal 21.0-31.[address] [facility] Comment on above: Performed By: #### B BRIDGE TOLL COLLECTOR, CK, CBC, HS TROP, BMP, PT, PTT #### [facility] [address] Creatinine [Mass/Vol] 0.92 mg/dL Normal 0.70-1.30 [facility] Comment on above: Performed By: #### B BRIDGE TOLL COLLECTOR, CK, CBC, HS TROP, BMP, PT, PTT #### [facility] [address] Creatinine Clr Calc Pharmacy 65.05 [facility] Comment on above: Result Comment: PERF ORMED BY: [place] [address] PATHOLOGIST PHARMACY TECHNICIAN INFUSION DREW REAL M.D. Performed By: #### B BRIDGE TOLL COLLECTOR, CK, CBC, HS TROP, BMP, PT, PTT #### [address] GFR/1.73 sq M.predicted MDRD (S/P/Bld) [Vol rate/Area] mL/min/{1.73_m2} [facility] Comment on above: Performed By: #### B BRIDGE TOLL COLLECTOR, CK, CBC, HS TROP, BMP, PT, PTT #### [facility] [address] Glucose [Mass/Vol] 172 mg/dL High 70-100 [facility] Comment on above: Result Comment: Rosine Glucose Reference Range is dependent on time and content of last meal. Glucose of more than 200 mg/dL in a nonstressed, ambulatory subject supports the diagnosis of Diabetes Mellitus. ADA recommended reference range Performed By: #### B BRIDGE TOLL COLLECTOR, CK, CBC, HS TROP, BMP, PT, PTT #### [address] Potassium [Moles/Vol] 3.4 mmol/L Low 3.5-5.1 [facility] Comment on above: Performed By: #### B BRIDGE TOLL COLLECTOR, CK, CBC, HS TROP, BMP, PT, PTT #### [facility] [address] Sodium [Moles/Vol] 140 mmol/L Normal 136-145 [facility] Comment on above: Performed By: #### B BRIDGE TOLL COLLECTOR, CK, CBC, HS TROP, BMP, PT, PTT #### [facility] [address] Urea nitrogen [Mass/Vol] 15 mg/dL Normal 7-25 [facility] Comment on above: Performed By: #### B BRIDGE TOLL COLLECTOR, CK, CBC, HS TROP, BMP, PT, PTT #### [facility] [address] Basophils Auto (Bld) [#/Vol] Ordered By: Cirilo Wise on 08-20-2022 Basophils (Bld) [#/Vol] 0.1 10*3/uL 0.0-0.2 [facility] Basophils/100 WBC Auto (Bld) Ordered By: Cirilo Wise on 08-20-2022 Basophils/100 WBC (Bld) 0.5 % . [facility] Calcium [Mass/volume] in Ser um or PlasmaOrdered By: Cirilo Wise on 08-20-2022 Calcium [Mass/Vol] 9.4 mg/dL 8.6-10.3 [facility] Carbon dioxide, total [Moles /volume] in Serum or PlasmaOrdered By: Cirilo Wise on 08-20-2022 CO2 [Moles/Vol] 24.3 mmol/L 21.0-31.[address] [facility] Chloride [Moles/volume] in S jamin or PlasmaOrdered By: Cirilo Wise on 08-20-2022 Chloride [Moles/Vol] 105 mmol/L 98-107 [facility] Complete Blood Count Auto Di ffon 08-20-2022 Basophils (Bld) [#/Vol] 0.1 10*3/uL Normal 0.0-0.2 [facility] Comment on above: Result Comment: PERF ORMED BY: [place] [address] PATHOLOGIST PHARMACY TECHNICIAN INFUSION DREW REAL M.D. Performed By: #### B BRIDGE TOLL COLLECTOR, CK, CBC, HS TROP, BMP, PT, PTT #### [address] Basophils/100 WBC (Bld) 0.5 % Normal . [facility] Comment on above: Performed By: #### B BRIDGE TOLL COLLECTOR, CK, CBC, HS TROP, BMP, PT, PTT #### [address] Eosinophils (Bld) [#/Vol] 0.1 10*3/uL Normal 0.0-0.45 [facility] Comment on above: Performed By: #### B BRIDGE TOLL COLLECTOR, CK, CBC, HS TROP, BMP, PT, PTT #### [address] Eosinophils/100 WBC (Bld) 1.3 % Normal . [facility] Comment on above: Performed By: #### B BRIDGE TOLL COLLECTOR, CK, CBC, HS TROP, BMP, PT, PTT #### [address] Erythrocyte distribution width (RBC) [Ratio] 13.6 % Normal 12.0-14.8 [facility] Comment on above: Performed By: #### B BRIDGE TOLL COLLECTOR, CK, CBC, HS TROP, BMP, PT, PTT #### [address] Hematocrit (Bld) [Volume fraction] 44.0 % Normal 38.8-50.0 [facility] Comment on above: Performed By: #### B BRIDGE TOLL COLLECTOR, CK, CBC, HS TROP, BMP, PT, PTT #### [address] Hemoglobin (Bld) [Mass/Vol] 15.1 g/dL Normal 13.0-17.0 [facility] Comment on above: Performed By: #### B BRIDGE TOLL COLLECTOR, CK, CBC, HS TROP, BMP, PT, PTT #### [address] Lymphocytes (Bld) [#/Vol] 2.8 10*3/uL Normal 1.00-4.8 [facility] Comment on above: Performed By: #### B BRIDGE TOLL COLLECTOR, CK, CBC, HS TROP, BMP, PT, PTT #### [address] Lymphocytes/100 WBC (Bld) 26.2 % Normal . [facility] Comment on above: Performed By: #### B BRIDGE TOLL COLLECTOR, CK, CBC, HS TROP, BMP, PT, PTT #### [address] MCH (RBC) [Entitic mass] 32.1 pg Normal 27.5-35.2 [facility] Comment on above: Performed By: #### B BRIDGE TOLL COLLECTOR, CK, CBC, HS TROP, BMP, PT, PTT #### [address] MCV (RBC) [Entitic vol] 93.4 fL Normal 83.5-101 [facility] Comment on above: Performed By: #### B BRIDGE TOLL COLLECTOR, CK, CBC, HS TROP, BMP, PT, PTT #### [address] Mean Corpuscular HGB Conc 34.4 g/dL Normal 32.5-35.6 [facility] Comment on above: Performed By: #### B BRIDGE TOLL COLLECTOR, CK, CBC, HS TROP, BMP, PT, PTT #### [address] Monocytes (Bld) [#/Vol] 0.9 10*3/uL High 0.0-0.8 [facility] Comment on above: Performed By: #### B BRIDGE TOLL COLLECTOR, CK, CBC, HS TROP, BMP, PT, PTT #### [address] Monocytes/100 WBC (Bld) 16.35 % Normal 0.00-20.00 [facility] Comment on above: Performed By: #### B BRIDGE TOLL COLLECTOR, CK, CBC, HS TROP, BMP, PT, PTT #### [facility] [address] Monocytes/100 WBC (Bld) 7.9 % Normal . [facility] Comment on above: Performed By: #### B BRIDGE TOLL COLLECTOR, CK, CBC, HS TROP, BMP, PT, PTT #### [facility] [address] Neutrophils (Bld) [#/Vol] 6.9 10*3/uL Normal 1.8-7.7 [facility] Comment on above: Performed By: #### B BRIDGE TOLL COLLECTOR, CK, CBC, HS TROP, BMP, PT, PTT #### [facility] [address] Neutrophils/100 WBC (Bld) 64.1 % Normal . [facility] Comment on above: Performed By: #### B BRIDGE TOLL COLLECTOR, CK, CBC, HS TROP, BMP, PT, PTT #### [address] NRBC% 0.1 /100{WBC} Normal 0-0.5 [facility] Comment on above: Performed By: #### B BRIDGE TOLL COLLECTOR, CK, CBC, HS TROP, BMP, PT, PTT #### [address] Platelet mean volume (Bld) [Entitic vol] 9.7 fL Normal 6.6-10.1 [facility] Comment on above: Performed By: #### B BRIDGE TOLL COLLECTOR, CK, CBC, HS TROP, BMP, PT, PTT #### [facility] [address] Platelets (Bld) [#/Vol] 215 10*3/uL Normal 150-450 [facility] Comment on above: Performed By: #### B BRIDGE TOLL COLLECTOR, CK, CBC, HS TROP, BMP, PT, PTT #### [address] RBC (Bld) [#/Vol] 4.71 10*6/uL Normal 3.90-5.60 [facility] Comment on above: Performed By: #### B BRIDGE TOLL COLLECTOR, CK, CBC, HS TROP, BMP, PT, PTT #### [address] WBC (Bld) [#/Vol] 10.7 10*3/uL High 4.1-10.5 [facility] Comment on above: Performed By: #### B BRIDGE TOLL COLLECTOR, CK, CBC, HS TROP, BMP, PT, PTT #### [facility] [address] Creatine Kinaseon 08-20-2022 CK [Catalytic activity/Vol] 115 U/L Normal [facility] Comment on above: Performed By: #### B BRIDGE TOLL COLLECTOR, CK, CBC, HS TROP, BMP, PT, PTT #### [address] Creatine kinase [Enzymatic a ctivity/volume] in Serum or PlasmaOrdered By: Cirilo Wise on 08-20-2022 CK [Catalytic activity/Vol] 115 U/L [facility] Creatinine [Mass/volume] in Serum or PlasmaOrdered By: Cirilo Wise on 08-20-2022 Creatinine [Mass/Vol] 0.92 mg/dL 0.70-1.30 [facility] ECG 12 lead ECGon 08-20-2022 ECG 12 lead ECG [facility] [address] [place] [address] Electrocardiograph Report Signed Patient: Olaf Briones MR#: [id number] 2 : 1945 Acct:[id number] Age/Sex: 77 / M ADM Date: 08/20/22 Loc: Room: [address] [place] [address] Type: REG DCC Attending Dr: Steven Zamora DO Ordering Provider: [...] , age undetermined Inferior injury pattern ACUTE GA / STEMI Consider right ventricular involvement in acute inferior infarct Abnormal ECG No previous ECGs available Confirmed by SHANNON COCHRAN DO ([id number]) on 08/21/2022 2:06:14 AM Referred By: Electronically Signed By:SHANNON COCHRAN DO Transcribed By: MUS Signed By Shannon Cochran DO 08/21 0206 Normal [facility] Eosinophils Auto (Bld) [#/Vo l]Ordered By: Cirilo Wise on 08-20-2022 Eosinophils (Bld) [#/Vol] 0.1 10*3/uL 0.0-0.45 [facility] Eosinophils/100 WBC Auto (Bl d)Ordered By: Cirilo Wise on 08-20-2022 Eosinophils/100 WBC (Bld) 1.3 % . [facility] Erythrocyte distribution wid th Auto (RBC) [Ratio]Ordered By: Cirilo Wise on 08-20-2022 Erythrocyte distribution width (RBC) [Ratio] 13.6 % 12.0-14.8 [facility] Glucose [Mass/volume] in Ser um or PlasmaOrdered By: Cirilo Wise on 08-20-2022 Glucose [Mass/Vol] 172 mg/dL 70-100 [facility] Comment on above: ADA recommended refe rence rangeRandom Glucose Reference Range is dependent on time and content of last meal. Glucose of more than 200 mg/dL in a nonstressed, ambulatory subject supports the diagnosis of Diabetes Mellitus. Hematocrit Auto (Bld) [Volum e fraction]Ordered By: Cirilo Wise on 08-20-2022 Hematocrit (Bld) [Volume fraction] 44.0 % 38.8-50.0 [facility] Hemoglobin [Mass/volume] in BloodOrdered By: Cirilo Wise on 08-20-2022 Hemoglobin (Bld) [Mass/Vol] 15.1 g/dL 13.0-17.0 [facility] Laboratory - CoagulationOrde red By: Cirilo Wise on 08-20-2022 PT Coag (PPP) [Time] 11.4 s 9.0-12.9 [facility] Leukocytes [#/volume] correc betty for nucleated erythrocytes in Blood by Automated counOrdered By: Cirilo Wise on 08-20-2022 WBC corrected for nucl RBC Auto (Bld) [#/Vol] 10.7 10*3/uL 4.1-10.5 [facility] Lymphocytes Auto (Bld) [#/Vo l]Ordered By: Cirilo Wise on 08-20-2022 Lymphocytes (Bld) [#/Vol] 2.8 10*3/uL 1.00-4.8 [facility] Lymphocytes/100 WBC Auto (Bl d)Ordered By: Cirilo Wise on 08-20-2022 Lymphocytes/100 WBC (Bld) 26.2 % . [facility] MCH Auto (RBC) [Entitic mass ]Ordered By: Cirilo Wise on 08-20-2022 MCH (RBC) [Entitic mass] 32.1 pg 27.5-35.2 [facility] MCHC Auto (RBC) [Mass/Vol]Or dered By: Cirilo Wise on 08-20-2022 MCHC (RBC) [Mass/Vol] 34.4 g/dL 32.5-35.6 [facility] MCV Auto (RBC) [Entitic vol] Ordered By: Cirilo Wise on 08-20-2022 MCV (RBC) [Entitic vol] 93.4 fL 83.5-101 [facility] Monocyte distribution width [Entitic volume] in Blood by AutomatedOrdered By: Cirilo Wise on 08-20-2022 Monocyte distribution width Auto (Bld) [Entitic vol] 16.35 % 0.00-20.00 [facility] Monocytes Auto (Bld) [#/Vol] Ordered By: Cirilo Wise on 08-20-2022 Monocytes (Bld) [#/Vol] 0.9 10*3/uL 0.0-0.8 [facility] Monocytes/100 WBC Auto (Bld) Ordered By: Cirilo Wise on 08-20-2022 Monocytes/100 WBC (Bld) 7.9 % . [facility] Natriuretic peptide B [Mass/ Vol]Ordered By: Cirilo Wise on 08-20-2022 Natriuretic peptide B (Bld) [Mass/Vol] 24.0 pg/mL 5-100 [facility] Neutrophils Auto (Bld) [#/Vo l]Ordered By: Cirilo Wise on 08-20-2022 Neutrophils (Bld) [#/Vol] 6.9 10*3/uL 1.8-7.7 [facility] Neutrophils/100 WBC Auto (Bl d)Ordered By: Cirilo Wise on 08-20-2022 Neutrophils/100 WBC (Bld) 64.1 % . [facility] No Panel Informationon 08-20 2529.3\S\2529.3 Critically high 0.0-20.0 MP-N [facility]u eduardo 250 DO Work Phone: Comment on above: Critical Result : Ca lled to and read back by: ARY BUSTILLOS at: 08/20/2022 19:45:52 by:[id number] BY:[facility], [place] [id number] MEDICAL DIRECTORDREW REAL M.D. No Panel InformationOrdered By: Cirilo Wise on 08-20-2022 Estimated GFR (CKD-EPI) > 60.0 mL/Min [facility] Creatinine Clearance (Chem 65.05 [facility] Nucleated erythrocytes [Pres ence] in Blood by Automated countOrdered By: Cirilo Wise on 08-20-2022 Nucleated RBC Auto Ql (Bld) 0.1 /100{WBC} 0-0.5 [facility] Partial Thromboplastin Timeo n 08-20-2022 aPTT Coag (Bld) [Time] 25.1 s Normal 25.1-36.5 [facility] Comment on above: Result Comment: PERF ORMED BY: [facility] [address] [place] [address] PATHOLOGIST PHARMACY TECHNICIAN INFUSION DREW REAL M.D. Performed By: #### B BRIDGE TOLL COLLECTOR, CK, CBC, HS TROP, BMP, PT, PTT #### [facility] [address] [place] [address] [facility] Platelet mean volume Auto (B ld) [Entitic vol]Ordered By: Cirilo Wise on 08-20-2022 Platelet mean volume (Bld) [Entitic vol] 9.7 fL 6.6-10.1 [facility] Platelet poor plasma interna tional normalized ratio (INR) by coagulation assay (relatOrdered By: Cirilo Wise on 08-20-2022 INR Coag (PPP) [Relative time] 1.0 {INR} [facility] Comment on above: INR Therapeutic Rang e [...] 08-20-2022 Platelets (Bld) [#/Vol] 215 10*3/uL 150-450 [facility] Potassium [Moles/volume] in Serum or PlasmaOrdered By: Cirilo Wise on 08-20-2022 Potassium [Moles/Vol] 3.4 mmol/L 3.5-5.1 [facility] Prothrombin Time INRon 08-20 INR Coag (PPP) [Relative time] 1.0 {INR} Normal [facility] Comment on above: Result Comment: INR Therapeutic [...] 3 - 4.5 Performed By: #### B BRIDGE TOLL COLLECTOR, CK, CBC, HS TROP, BMP, PT, PTT #### [facility] [address] PT Coag (PPP) [Time] 11.4 s Normal 9.0-12.9 [facility] Comment on above: Performed By: #### B BRIDGE TOLL COLLECTOR, CK, CBC, HS TROP, BMP, PT, PTT #### [facility] [address] [place] [address] [place] RBC Auto (Bld) [#/Vol]Ordere d By: Cirilo Wise on 08-20-2022 RBC (Bld) [#/Vol] 4.71 10*6/uL 3.90-5.60 [facility] Serum or plasma anion gap de terminationOrdered By: Cirilo Wise on 08-20-2022 Anion gap [Moles/Vol] 14.1 mmol/L 6.0-15.0 [facility] Sodium [Moles/volume] in Ser um or PlasmaOrdered By: Cirilo Wise on 08-20-2022 Sodium [Moles/Vol] 140 mmol/L 136-145 [facility] Troponin I High Sensitivityo n 08-20-2022 Troponin I High Sensitivity 9010.4 pg/mL Off scale high 0.0-20.0 [facility] Comment on above: Result Comment: Crit ical Result : Called to and read back by: ARY BUSTILLOS at: 08/20/2022 22:35:19 by:[id number] PERFORMED BY: [place] [address] PATHOLOGIST PHARMACY TECHNICIAN INFUSION DREW REAL M.D. Performed By: #### H S TROP #### [facility] [address] [place] [address] Troponin I High Sensitivity 2529.3 pg/mL Off scale high 0.0-20.0 [facility] Comment on above: Result Comment: Crit ical Result : Called to and read back by: ARY BUSTILLOS at: 08/20/2022 19:45:52 by:[id number] PERFORMED BY: [place] [address] PATHOLOGIST PHARMACY TECHNICIAN INFUSION DREW REAL M.D. Performed By: #### H S TROP #### [facility] [address] [place] [address] Troponin I High Sensitivity 366.3 pg/mL Off scale high 0.0-20.0 [facility] Comment on above: Result Comment: Crit ical Result : Called to and read back by: SHANNON FERREIRA at: 08/20/2022 17:43:14 by:[id number] PERFORMED BY: [place] [address] PATHOLOGIST PHARMACY TECHNICIAN INFUSION DREW REAL M.D. Performed By: #### H S TROP #### [address] Troponin I.cardiac [Mass/vol ume] in Serum or Plasma by Detection limit <= 0.01 ng/Ordered By: Cirilo Wise on 08-20-2022 Troponin I.cardiac DL <= 0.01 ng/mL [Mass/Vol] 366.3 pg/mL 0.0-20.0 [facility] Comment on above: Critical Result : Ca lled to and read back by: SHANNON FERREIRA at: 08/20/2022 17:43:14 by:[id number] Urea nitrogen [Mass/volume] in Serum or PlasmaOrdered By: Cirilo Wise on 08-20-2022 Urea nitrogen [Mass/Vol] 15 mg/dL 7-25 [facility] WBC Auto (Bld) [#/Vol]Ordere d By: Cirilo Wise on 08-20-2022 WBC (Bld) [#/Vol] 10.7 10*3/uL 4.1-10.5 [facility] XR chest 1Von 08-20-2022 XR chest 1V [facility] [address] [place] [address] XRay Report Signed Patient: Olaf Briones MR#: [id number] 2 : 1945 Acct:[id number] Age/Sex: 77 / M ADM Date: 08/20/22 Loc: Room: Type: [facility] Attending Dr: Steven Zamora DO Copies to: [...] Lucinda Monreal M.D.08/20/2022 4:50 PM Dictation Location: [place] [address] Transcribed By: [facility] 08/20/221649 Dictated By: Lucinda Monreal MD 08/20/22 1648 Signed By: 08/20/22 165 [facility] Office Visit (Cardiology)on 06-01-2022 Follow-up visit Diagnoses/Problems [...] Weight Tips; Status:Complete - Retrospective Authorization; Done: [id number] Some eating tips that can help you lose weight.; Status:Complete - Retrospective Authorization; Done: [id number] SocHx: Former smoker Tobacco Use Screening; Status:Complete; Done: [id number] Patient Instructions Please bring all medicines, vitamins, [...] in 1 year. Lab as scheduled with [place] Chief Complaint OLAF BRIONES is being seen [...] [facility] him [facility] in [...] negative for complaint. Vitals Vital Signs Recorded: [id number] 10:52AMRecorded: [id number] 10:34AM [id number], LUE, Sitting [id number], LUE, Sitting Heart Rate72, L Radial Height5 ft 6 in Rwbfed337 lb BMI Kaqjaggxvx66.73 kg/m2 BSA Calculated1.9 Tobacco Useb) No PHQ-2 #1. Over the last 2 weeks have you felt down, depressed (more content not included)... Normal Family[facility] XR KUB 1 VIEWon 10-26-2021 XR KUB [...] by: AMNA BALDWIN Date: 2021-10-26 10:33 Normal [facility] Office Visit (Cardiology)on 09-18-2021 Follow-up visit [...] Recorded: 18Sep2021 10:16AM Heart Rate64, L Radial Tmtimfnn180, (more content not included)... Normal Familytic Tobacco Screening.on 022 Fall risk assessment a) No falls within the last year [facility]Sandu eduardo 250 DO Work Phone: Tobacco use status [facility] b) No M [facility] HeartCristy clark 250 DO Work Phone: IO EKG Electrocardiogram- 12 Leadon 11-24-2020 IO EKG Electrocardiogram- 12 Lead See Scanned Document [facility] Carter clark 250 DO Work Phone: Tobacco Screening.on 021 Fall risk assessment a) No falls within the last year [facility] Carter clark 250 DO Work Phone: Tobacco use status [facility] b) No M [facility] Carter clark 250 DO Work Phone: Vital Signs Date Time Vital Sign Value Performing Clinician Facility 01-09-2023 15:38-0500 Body height 172.7 cm Ashutosh Ling MD Work Phone: [facility] 01-09-2023 15:38-0500 Body mass index (BMI) [Ratio] 26.76 kg/m2 Ashutosh Ling MD Work Phone: [facility] 01-09-2023 15:38-0500 Body weight 79.83 kg Ashutosh Ling MD Work Phone: [facility] 01-09-2023 15:38-0500 Diastolic blood pressure 76 mm[Hg] Ashutosh Ling MD Work Phone: [facility] 01-09-2023 15:38-0500 Heart rate 58 /min Ashutosh Ling MD Work Phone: [facility] 01-09-2023 15:38-0500 Systolic blood pressure 142 mm[Hg] Ashutosh Ling MD Work Phone: [facility] 10-29-2022 11:35-0400 Body height 172.72 cm Estella Siddiqui Other [facility] Other 10-29-2022 11:35-0400 Body mass index (BMI) [Ratio] 26.64 kg/m2 Estella Siddiqui Other [facility] Other 10-29-2022 11:35-0400 Body temperature 98.2 [degF] Estella Siddiqui Other [facility] Other 10-29-2022 11:35-0400 Body weight 79.47 kg Estella Siddiqui Other [facility] Other 10-29-2022 11:35-0400 Diastolic blood pressure 76 mm[Hg] Estella Siddiqui Other [facility] Other 10-29-2022 11:35-0400 Respiratory rate 18 /min Estella Siddiqui Other [facility] Other 10-29-2022 11:35-0400 SaO2% (BldA) [Mass fraction] 98 % Estella Siddiqui Other [facility] Other 10-29-2022 11:35-0400 Systolic blood pressure 140 mm[Hg] Estella Siddiqui Other [facility] Other 09-05-2022 13:02-0400 Body height 167.64 cm Nahomi Hernandez Work Phone: [employer]Madison Visedo 250 DO Work Phone: 09-05-2022 13:02-0400 Body mass index (BMI) [Ratio] 27.6 kg/m2 Nahomi Hernandez Work Phone: [employer]ison [place]ised[place] 250 DO Work Phone: 09-05-2022 13:02-0400 Body surface area Derived from formula 1.87 m2 Nahomi Hernandez Work Phone: [facility] 250 DO Work Phone: 09-05-2022 13:02-0400 Body weight 77.57 kg Nahomi Bowers David Work Phone: [facility] 250 DO Work Phone: 09-05-2022 13:02-0400 Diastolic blood pressure 54 mm[Hg] Nahomi Bowers David Work Phone: [facility] 250 DO Work Phone: 09-05-2022 13:02-0400 Heart rate 68 /min Nahomi Bowers David Work Phone: [facility] 250 DO Work Phone: 09-05-2022 13:02-0400 Systolic blood pressure 126 mm[Hg] Nahomi Bowers David Work Phone: [facility] 250 DO Work Phone: 08-27-2022 03:30-0400 Diastolic blood pressure 76 mm[Hg] [facility] 08-27-2022 03:30-0400 Heart rate 74 /min [facility] 08-27-2022 03:30-0400 Mean blood pressure 87 mm[Hg] [facility] 08-27-2022 03:30-0400 Respiratory rate 14 /min [facility] 08-27-2022 03:30-0400 SaO2% (BldA) [Mass fraction] 96 % [facility] 08-27-2022 03:30-0400 Systolic blood pressure 110 mm[Hg] [facility] 08-27-2022 03:00-0400 Diastolic blood pressure 80 mm[Hg] [facility] 08-27-2022 03:00-0400 Heart rate 80 /min [facility] 08-27-2022 03:00-0400 Mean blood pressure 97 mm[Hg] [facility] 08-27-2022 03:00-0400 Respiratory rate 15 /min [facility] 08-27-2022 02:30-0400 Diastolic blood pressure 73 mm[Hg] [facility] 08-27-2022 02:30-0400 Heart rate 96 /min [facility] 08-27-2022 02:30-0400 Mean blood pressure 92 mm[Hg] [facility] 08-27-2022 02:30-0400 Respiratory rate 20 /min [facility] 08-27-2022 02:30-0400 SaO2% (BldA) [Mass fraction] 98 % [facility] 08-27-2022 02:30-0400 Systolic blood pressure 130 mm[Hg] [facility] 08-26-2022 19:17-0400 Respiratory rate 18 /min [facility] 08-26-2022 18:11-0400 Respiratory rate 18 /min [facility] 08-26-2022 17:07-0400 Body temperature 97.7 [degF] [facility] 08-26-2022 17:07-0400 Heart rate 83 /min [facility] 08-26-2022 17:07-0400 Respiratory rate 18 /min [facility] 08-22-2022 15:50-0400 Body temperature 98.2 [degF] [facility] 08-22-2022 15:50-0400 Diastolic blood pressure 64 mm[Hg] [facility] 08-22-2022 15:50-0400 Heart rate 64 /min [facility] 08-22-2022 15:50-0400 Respiratory rate 18 /min [facility] 08-22-2022 15:50-0400 SaO2% (BldA) [Mass fraction] 99 % [facility] 08-22-2022 15:50-0400 Systolic blood pressure 124 mm[Hg] [facility] 08-22-2022 05:48-0400 Body weight [address] [facility] 08-21-2022 10:27-0400 70 1 Jame Barraza Work Phone: [facility] 250 DO Work Phone: Comment on above: [id number] 08-20-2022 18:32-0400 Body height 172.[address] [facility] 08-20-2022 17:13-0400 Heart rate 42 /min [facility] 08-20-2022 16:38-0400 Diastolic blood pressure 60 mm[Hg] [facility] 08-20-2022 16:38-0400 Respiratory rate 18 /min [facility] 08-20-2022 16:38-0400 SaO2% (BldA) [Mass fraction] 98 % [facility] 08-20-2022 16:38-0400 Systolic blood pressure 123 mm[Hg] [facility] 08-20-2022 16:25-0400 Body height 172.[address] [facility] 08-20-2022 16:25-0400 Body temperature 97.6 [degF] [facility] 08-20-2022 16:25-0400 Body weight 81.[address] [facility] 10-27-2021 08:55-0400 Blood Pressure Location Shanna IVORY [facility] 10-27-2021 08:55-0400 Diastolic blood pressure 76 mm[Hg] Shanna IVORY [facility] 10-27-2021 08:55-0400 Heart rate 64 /min Shanna IVORY [facility] 10-27-2021 08:55-0400 Respiratory rate 16 /min Shanna IVORY [facility] 10-27-2021 08:55-0400 Systolic blood pressure 125 mm[Hg] Shanna IVORY [facility] 03-07-2021 15:22-0500 Diastolic blood pressure 78 mm[Hg] Jame Barraza Work Phone: [facility] 250 DO Work Phone: 03-07-2021 15:22-0500 Systolic blood pressure 139 mm[Hg] Jame Barraza Work Phone: [facility] 250 DO Work Phone: 03-07-2021 14:47-0500 Body height 167.64 cm Jame Barraza Work Phone: [facility] 250 DO Work Phone: 03-07-2021 14:47-0500 Body mass index (BMI) [Ratio] 28.73 kg/m2 Jame Barraza Work Phone: [facility] 250 DO Work Phone: 03-07-2021 14:47-0500 Body surface area Derived from formula 1.9 m2 Jame Barraza Work Phone: [facility] 250 DO Work Phone: 03-07-2021 14:47-0500 Body weight 80.74 kg Jame Barraza Work Phone: [facility] 250 DO Work Phone: 03-07-2021 14:47-0500 Diastolic blood pressure 82 mm[Hg] Jame Barraza Work Phone: [facility] 250 DO Work Phone: 03-07-2021 14:47-0500 Heart rate 84 /min Jame Barraza Work Phone: [facility] 250 DO Work Phone: 03-07-2021 14:47-0500 Systolic blood pressure 172 mm[Hg] Jame Barraza Work Phone: [facility] 250 DO Work Phone: 11-24-2020 08:51-0400 Body height 167.64 cm Jame Barraza Work Phone: [facility] 250 DO Work Phone: 11-24-2020 08:51-0400 Body mass index (BMI) [Ratio] 28.08 kg/m2 Jame Barraza Work Phone: [facility] 250 DO Work Phone: 11-24-2020 08:51-0400 Body surface area Derived from formula 1.89 m2 Jame Barraza Work Phone: [facility] 250 DO Work Phone: 11-24-2020 08:51-0400 Body weight 78.93 kg Jame Barraza Work Phone: [facility] 250 DO Work Phone: 11-24-2020 08:51-0400 Diastolic blood pressure 82 mm[Hg] Jame Barraza Work Phone: [facility] 250 DO Work Phone: 11-24-2020 08:51-0400 Diastolic blood pressure 80 mm[Hg] Jame Barraza Work Phone: [facility] 250 DO Work Phone: 11-24-2020 08:51-0400 Heart rate 66 /min Jame Barraza Work Phone: [facility] 250 DO Work Phone: 11-24-2020 08:51-0400 Systolic blood pressure 136 mm[Hg] Jame Barraza Work Phone: [facility] 250 DO Work Phone: 11-24-2020 08:51-0400 Systolic blood pressure 138 mm[Hg] Jame Barraza Work Phone: [facility] 250 DO Work Phone: Encounters Encounter Date Encounter Type Care Provider Facility Start: 11-29-2023 ambulatory Shanna Yousif ty:[facility] Start: 03-12-2023 End: 03-12-2023 ambulatory DAV PEGUERO Not Available Start: 03-04-2023 End: 03-05-2023 ambulatory Alonzo Briscoe MD Facility: [facility] Start: 02-04-2023 End: 02-05-2023 ambulatory Alonzo Briscoe MD Facility: [facility] Start: 01-09-2023 End: 01-09-2023 ambulatory [facility] Ambulatory Start: 01-09-2023 End: 01-09-2023 Office outpatient visit 25 minutes Ashutosh Ling MD Work Phone: [facility] Comment on above: Arteriosclerotic car diovascular disease (Primary Dx); Abnormal EKG; Mixed hyperlipidemia; Primary hypertension; Post PTCA; Essential hypertension; BMI 26.0-26.9,adult; Easy bruisability Start: 11-26-2022 End: 11-27-2022 ambulatory Shanna IVORY Facility:[facility] Start: 10-29-2022 End: 10-29-2022 ambulatory Estella Siddiqui Other [employer] Other Start: 10-29-2022 Office outpatient ne w 10 minutes Estella Siddiqui [facility] Start: 10-01-2022 Rx Renewal Nahomi Hernandez Work Phone: [facility] 250 DO Work Phone: Start: 09-14-2022 Rx Renewal Nahomi Bowers David Work Phone: [facility] 250 DO Work Phone: Start: 09-06-2022 Telephone encounter Justine Rainey Urology Comment on above: Patient Update Start: 09-05-2022 Office outpatient vi sit 25 minutes Nahomi Elissa David Work Phone: [facility] 250 DO Work Phone: Start: 09-05-2022 Patient encounter procedure Nahomi Bowers David Work Phone: [facility] 250 DO Work Phone: Start: 09-05-[address] Ashutosh Ling Facility: Start: 09-05-2022 End: 09-06-2022 ambulatory Alexandre KOROMA Facility:[facility] Start: 09-05-2022 End: 09-05-2022 Patient encounter procedure Alexandre KOROMA [facility] Start: 09-04-2022 Telephone encounter Deborah Ibarra RN NOC Comment on above: Follow Up Phone Call (All Clear) Start: 08-27-2022 End: 08-31-2022 Evaluation and management of inpatient DAVID ANDREWS Facility:[facility] Start: 08-26-2022 End: 08-27-2022 Emergency department patient visit Keith Panchal Facility:[facility] Start: 08-26-2022 End: 08-27-2022 Emergency department patient visit [facility] Catalina Panchal [facility] Start: 08-26-2022 End: 08-28-2022 ambulatory Alexandre KOROMA Facility:CD:[id number] Start: 08-24-2022 Chart Update Jame Barraza Work Phone: [facility] 250 DO Work Phone: Start: 08-22-[address] Jame Barraza Facility:[id number] Start: 08-21-[address] Jame Barraza Facility:[id number] Start: 08-20-2022 End: 08-22-2022 Evaluation and management of inpatient W Steve Zamora Facility:[facility] Start: 08-20-2022 End: 08-22-2022 Evaluation and management of inpatient [facility] [place] [facility] Work Phone: Start: 08-20-2022 Admission to [facility] [employer] Work Phone: Start: 08-20-2022 ambulatory NON STAFF [facility] Work Phone: Start: 08-20-[address] Ben Zamora Facility:[id number] Start: 08-20-[address] Jame Barraza Facility:[id number] Start: 06-01-[address] Nahomi Hernandez Facility: Start: 05-08-2022 ambulatory Shanna IVORY Facility :[facility] Start: 10-27-2021 End: 10-27-2021 Patient encounter procedure Shanna IVORY [facility] Start: 10-26-2021 End: 10-27-[address] SHANNA IVORY Facility:H1 Start: 05-04-2021 ambulatory DOMINGUEZ Neely lity:H1 Start: 03-07-2021 Office outpatient vi sit 25 minutes Jame Barraza Work Phone: [facility] 250 DO Work Phone: Start: 11-29-2020 Chart Update Jame Barraza Work Phone: [facility] 250 DO Work Phone: Start: 11-28-2020 Patient encounter procedure Jame Barraza Work Phone: [facility] 250[address] [place] Work Phone: Start: 11-24-2020 AUDIT Jame Elissa Christi Work Phone: [facility] 250 DO Work Phone: Procedures Date Procedure Procedure Detail Performing Clinician Start: 08-30-2022 Antibody screen DAVID PEREZ Comment on above: Order Comment: Speci men Type: BLOOD SPECIMENOrdering Facility: [facility] Address: [address] [place] [address] Performed By: #### T SCR ####CC MAIN BLOOD BANKCLIA [id number] [address] Start: 08-27-2022 Antibody screen DAVID PEREZ Comment on above: Order Comment: Speci men Type: BLOOD SPECIMENOrdering Facility: [facility] Address: [address] [place] [address] Performed By: #### T SCR ####CC MAIN BLOOD BANKCLIA [id number] [address] Start: 08-20-[address] acement 0 Start: 08-20-2022 CL LHC & COR Angio Start: 08-20-2022 CL PCI AMI 1st Vesse l RCA JUHI Start: 08-18-2013 Cystoscopy Shanna SALDIVAR Comment on above: 11/08/200904/2006 Start: 02-18-2006 Transurethral prostatectomy Shanan IVORY Start: 02-18-2006 Urodynamic studies Kathryn IVORY Start: 02-18-2005 Transrectal biopsy o f prostate using ultrasound guidance Shanna IVORY Start: 02-19-2000 Extracorporeal shock wave lithotripsy of calculus of kidney Shanna IVORY Comment on above: LEFT Procedure on prostate Jame Barraza Work Phone: Ureterocystostomy Nahomi blevins Work Phone: Urinary catheter placement S katie Hernandez Work Phone: NEGATED: Highlighted row has not occurred! Total colonoscopy Jame Barraza Work Phone: Plan of Treatment Date Care Activity Detail Author Start: 03-27-2031 DTaP/Tdap/Td Vaccines (2 - Td or Tdap) DTaP/Tdap/Td Vaccines (2 - Td or Tdap) [facility] Start: 03-27-2031 Urine microalbumin profile DTAP,TDAP,TD (2 - Td or Tdap) [facility] Start: 06-26-2023 End: 06-26-2023 Patient encounter procedure 06/26/2023 3:10 PM EDT Office Visit [facility] [address] [address] Ashutosh Ling MD [facility] [facility] [place] [place] [address] [facility] Start: 06-07-2023 FUV, Provider: Ashutosh Ling, Status: Pen, Time: 11:20 AM FUV, Provider: Ashutosh Ling, Status: Pen, Time: 11:20 AM [facility] 250 DO Work Phone: Start: 01-09-2023 FUV, Provider: Ashutosh Ling, Status: Pen, Time: 3:30 PM FUV, Provider: Ashutosh Ling, Status: Pen, Time: 3:30 PM [facility] 250 DO Work Phone: Start: 10-19-2022 Influenza vaccination INFLUENZA (#1) [facility] Start: 09-05-2022 FUV, Provider: Ashutosh Ling, Status: Pen, Time: 12:50 PM FUV, Provider: Ashutosh Ling, Status: Pen, Time: 12:50 PM [facility] 250 DO Work Phone: Start: 08-22-2022 [facility] Start: 08-20-2022 Consultation [facility] Start: 08-20-2022 Referral to cardiac rehabilitation program [facility] Start: 08-20-2022 [facility] Start: 08-20-2022 End: 08-20-2022 Hospital admission [facility] Start: 02-18-2022 ADVANCE DIRECTIVE DISCUSSION ADVANCE DIRECTIVE DISCUSSION [facility] Start: 02-18-2022 DEPRESSION ASSESSMENT DEPRESSION ASSESSMENT [facility] Start: 08-30-2021 FUV, Provider: Ashutosh Ling, Status: Pen, Time: 2:30 PM FUV, Provider: Ashutosh Ling, Status: Pen, Time: 2:30 PM -[facility] 250 DO Work Phone: Start: 04-03-2021 COVID-19 VACCINE (4 - Pfizer series) COVID-19 VACCINE (4 - Pfizer series) [facility] Start: 03-07-2021 FUV, Provider: Ashutosh Ling, Status: Pen, Time: 2:50 PM FUV, Provider: Ashutosh Ling, Status: Pen, Time: 2:50 PM -[facility] 250 DO Work Phone: Start: 11-28-2020 EVENT ELIEZER, Provider: FADUMO [employer] 1,[id number], Status: Pen, Time: 10:30 AM EVENT ELIEZER, Provider: FADUMO [employer] 1,[id number], Status: Pen, Time: 10:30 AM [facility] 250 DO Work Phone: Start: 06-18-1995 SHINGRIX VACCINE (1 of 2) SHINGRIX VACCINE (1 of 2) [facility] Start: 06-18-1995 Zoster Vaccines (1 of 2) Zoster Vaccines (1 of 2) [facility] Start: 06-18-1963 ANNUAL PCP TEAM CHRONIC DISEASE VISIT ANNUAL PCP TEAM CHRONIC DISEASE VISIT [facility] Start: 06-18-1963 BP CONTROLLED (<130/80) BP CONTROLLED (<130/80) [facility] Start: 06-18-1963 Hepatitis B surface antibody level LDL CHOLESTEROL [facility] Start: 06-18-1963 HEPATITIS C SCREENING HEPATITIS C SCREENING [facility] Start: 06-18-1963 Hepatitis C screening Hepatitis C Screening [facility] Start: 06-18-1955 3 comp foot exam completed DIABETIC FOOT EXAM [facility] Start: 06-18-1955 Hepatitis B screening URINE ALBUMIN:CREATININE RATIO [facility] Start: 06-18-1955 Hepatitis C antibody, confirmatory test DILATED RETINAL EXAM [facility] Start: 1950 Hemoglobin A1c/Hemoglobin.total in Blood HBA1C [facility] Start: 1945 Lipid panel Lipid Panel [facility] Start: 1945 Medicare Annual Wellness Visit Medicare Annual Wellness Visit (AWV) [facility] Patient Education Coronary Angio plasty (DC) Coronary Stenting (DC) Angina (DC) Chest Pain (DC) Drug Eluting Stents [facility] Work Phone: Patient referral [facility] Work Phone: Immunizations Immunization Date Immunization Notes Care Provider [facility] 02-18-2022 influenza nasal, unspecified formulation Deborah Ibarra RN [facility] 12-26-2021 Fluad Quadrivalent 0 .5 ML Intramuscular Prefilled Syringe Jame Barraza Work Phone: [facility] 12-26-2021 influenza, high dose seasonal, preservative-free Ashutosh Ling MD Work Phone: [facility] Work Phone: 03-27-2021 tetanus toxoid, redu shruti diphtheria toxoid, and acellular pertussis vaccine, adsorbed Deborah Ibarra RN [facility] 02-06-2021 Pfizer-BioNTech COVID-19 Vacc 30 MCG/0.3ML Intramuscular Suspension Jame Barraza Work Phone: [facility] 11-18-2020 influenza nasal, unspecified formulation Deborah Ibarra RN [facility] 11-10-2020 Fluad Quadrivalent 0 .5 ML Intramuscular Prefilled Syringe Jame Barraza Work Phone: [facility] 04-12-2020 Pfizer-BioNTech COVID-19 Vacc 30 MCG/0.3ML Intramuscular Suspension Jame Barraza Work Phone: [facility] 03-28-2020 COVID-19 original vaccine, age 12+ yr, monovalent (PFIZER-BIONTECH - PURPLE TOP) Deborah Ibarra RN [facility] 03-22-2020 Pfizer-BioNTech COVID-19 Vacc 30 MCG/0.3ML Intramuscular Suspension Jame Barraza Work Phone: [facility] 03-21-2020 SARS-CoV-2 (COVID-19 ) Ad26 vaccine, recombinant Shanna IVORY [facility] Comment on above: Result Comment: unab le to give exact dates 12-16-2019 influenza (HD-IIV4) vaccine, age 65+ yr, high dose, quadrivalent, PF (FLUZONE HIGH-DOSE) Deborah Ibarra RN [facility] 12-16-2018 AS03 adjuvant Deborah Ibarra RN [facility] 12-24-2017 AS03 adjuvant Deborah Ibarra RN [facility] 12-21-2016 influenza, high dose seasonal, preservative-free Deborah Ibarra RN [facility] 02-19-2016 pneumococcal polysaccharide vaccine, 23 valent Jame Barraza Work Phone: [facility] Comment on above: Series: 11-23-2015 influenza, high dose seasonal, preservative-free Jame Barraza Work Phone: [facility] 10-20-2015 influenza nasal, unspecified formulation Deborah Ibarra RN [facility] 11-06-2014 influenza nasal, unspecified formulation Deborah Ibarra RN [facility] 11-06-2014 pneumococcal conjuga te vaccine, 13 valent Deborah Ibarra RN [facility] Payers Date Payer Category Payer Medicare [id number] 2022 Private Health Insurance [id number] 2022 Self-pay 2022 Medicare [id number] 2022 Medicare [id number] 1959 Medicare [id number] 1959 Private Health Insurance [facility] [id number] 1945 Unknown [id number] [id number] 1945 Unknown [id number] 2.16.840.1.218921.3.579.2.593 1945 Unknown [id number] 2.16.840.1.698664.3.579.2.356 1945 Unknown [id number] 2.16.840.1.175925.3.579.2.356 1945 Unknown [id number] 2.16.840.1.023748.3.579.2.356 1945 Unknown [id number] 2.16.840.1.342158.3.579.2.356 1945 Unknown [id number] 2.16.840.1.658193.3.579.2.356 1945 Unknown [id number] 2.16.840.1.085863.3.579.2.356 1945 Unknown [id number] 2.16.840.1.392143.3.579.2.727 1945 Unknown [id number] 2.16.840.1.900315.3.579.2.727 1945 Unknown [id number] 2.16.840.1.020988.3.579.2.727 1945 Unknown [id number] 2.16.840.1.926559.3.579.2.727 1945 Unknown [id number] 2.16.840.1.127350.3.579.2.727 1945 Unknown [id number] 2.16.840.1.470144.3.579.2.1244 1945 Unknown [id number] 2.16.840.1.323835.3.579.2.1259 1945 Unknown [id number] 2.16.840.1.186367.3.579.2.196 1945 Unknown [id number] 2.16.840.1.691228.3.579.2.196 Private Health Insurance [facility] [id number] Unknown Unknown [id number] [id number] Social History Date Type Detail Facility Start: 01-08-2023 No alcohol use No alcohol use -[facility] 250 DO Work Phone: Comment on above: 1 cup of coffee edelmira y; former cigar smoker; Start: 10-21-2020 End: 08-21-2022 Tobacco smoking status Never smoked tobacco (finding) [facility] Start: 01-08-2023 Sex Assigned At Male [facility] Start: 1945 Sex Assigned At Male F [facility] Tobacco smoking status [facility] Tobacco smoking consumption unknown [facility] Start: 1945 Sex Assigned At Not on file [facility] Start: 01-08-2023 Tobacco smoking status NHIS Ex-smoker [facility] Work Phone: History of tobacco use Current smoker [facility] Work Phone: History of tobacco use Cigar Smoker [facility] Work Phone: Start: 01-08-2023 Tobacco use and exposure Smokeless tobacco non-user [facility] Work Phone: Start: 01-09-2023 Alcohol intake Ex-drinker (finding) [facility] Work Phone: Start: 12-30-2022 End: 01-09-2023 Exposure to SARS-CoV-2 (event) Not sure [facility] Medical Equipment Procedure Code Equipment Code Equipment Origin al Text Equipment Identifier Dates CL STENT BISHOP FRONTIER 3.0 X 26 FDA Start: 08-20-2022 Femoral artery closure plug/patch, synthetic polymer ([id number] FDA Start: 08-20-2022 Goals Date Patient Goal Desired Activity /State Functional Status Date Assessment Result Facility 08-26-2022 Functional Status N/A [facility] 08-22-2022 Functional status Patient at Baseline [facility] Work Phone: 10-27-2021 Functional Status N/A [facility] [place] Mental Status Date Assessment Result Facility 08-22-2022 Cognitive function Cognitive Sta tus Patient at Baseline [facility] Work Phone: Clinical Notes 10-27-2021 to [...] his lab work is done through the [place] system Review of Systems Constitutional: Easy bruisability [...] 8. Easy bruisability documented in this encounter [facility] Work Phone: 01-09-2023 Instructions Travis Peter MA - 01/09/2023 3:30 PM EST [...] of your visit. documented in this encounter [facility] Work Phone: 10-29-2022 Evaluation note Encounter Date Diagnosis Assessment Notes Oct, Impacted cerumen of both ears (ICD-10 - H61.23) Cerumen impaction home care material was printed Drink plenty fluids, get plenty of rest. Continue home medications as prescribed. Follow-up with your family physician for any further concerns [employer] Other 07-20-2023 Miscellaneous Notes* Telephone Encounter - [...] called in. The pharmacy is not at [facility]. I will need to call them when its done. Dr Koroma is asking why he is on flomax? Please advise. [facility] Miscellaneous Notes* Telephone Encounter - Deborah Ibarra RN - 09/04/2022 12:51 PM EDT PATIENT INFORMATION Record ID: [id number] Patient Name: [facility]: [facility]: [facility] Attending: David Andrews Center: Urology INSTRUCTIONS SN to remind patient of appointment date, time, location All Clear All Clear SURVEY INFORMATION Medical/Nurse Cardiac/Vascular Sonographer: Deborah Ibarra 1. Your discharge instructions are [...] symptoms? (Standard Question) No [facility]23 NoteHNO ID: [id number] Author: Kathrin Dickerson RN Service: Care Management [...] Primary Care Physician Name/Phone: Jame Barraza MD [phone] Patient is medically stable for discharge, on RA, no dc needs. IMM provided on 08/30 by previous CM. Patients to discharge home. SIGNATURE: Kathrin Dickerson RN PATIENT NAME: Olaf Briones DATE: August 31, 2022 TIME: 9:40 AM CONTACT #: [phone] [facility] Note HNO ID: [id number] Author: Danyell Morris MD Service: Critical Care Author Type: Anesthesiologist Type: Progress Notes Filed: 08/31/2022 2:15 PM Note Text: SERVICE DATE: 08/31/2022 SERVICE TIME: 8:54 AM SURGICAL INTENSIVE CARE UNIT PROGRESS NOTE BRIEF HPI: Olaf Briones is a 77 year old male with PMHx of recent STEMI on 08/20/22 (s/p JUHI),HTN, HLD, DM, nephrolithiasis, transferred from [facility] for gross hematuria. He is now s/p [...] Primary and SICU discussed patient transfer to [facility]. 08/30:no acute events. Hemodynamically stable. 08/31: No acute events. HDS. Patient is doing well and ready for transfer/discharge per Urology. Subjective INTERVAL EVENTS: Improved Objective MEDICATIONS: Current medications and allergies reviewed. Recommended/planned medication changes discussed in detail in the A/P section below. Please refer to jellyfish for list of inpatient medications. VITAL SIGNS: [...] Is Patient Clinically Ready to Transfer to [facility] or SDU?: Yes, transfer to SDU or [...] aspirin and ticagrelor Coronary artery disease involving [facility] coronary artery of [facility] heart Assessment: STEMI on 08/19/2022 s/p JUHI [...] Antiplatelet Medications (From admiss (more content not included)...[facility]07-14-2023 NoteHNO ID: [id number] Author: Prema Feliz MD Service: Urology Author Type: Resident Type: Progress Notes Filed: 08/31/2022 6:45 AM Note Text: [facility] UROLOGY PROGRESS NOTE Name: Olaf Briones Bed: H050 013/H050-13 Date: 08/31/2022 After Hours [facility] Urology Service Pager: [phone] ASSESSMENT AND PLAN Olaf Briones is a 77 year old male with PMHx of HTN, HLD, DM, recent STEMI (s/p JUHI, on Brillinta and ASA), nephrolithiasis s/p ESWL remote, BPH s/p TURP 2001, transferred from [facility] for gross hematuria. Currently with 18Fr 3-way catheter on CBI. Now 3 Days Post-Op s/p cystoscopy, clot evacuation, cystolitholapaxy, TURP. Admitted to SICU postoperatively due to pressor requirements and risk of hyponatremia due to length of TURP. 22Fr [address] hernandez placed introp, on traction and CBI. Transferred to [facility] 08/30. Interval: - AFVSS - Doing well, [...] order flomax for home. Active Problems Prior [place] POA: Yes - placed on ASA 81, ticagrelor 90 mg BID Nephrolithiasis POA: Yes - Monitor HLD POA: Yes - Home atorva 80 mg DM POA: Yes - SSI HTN POA: Yes - amlodipine 5mg daily, carvedilol 6.25 BID, lisinopril 2.5 mg daily Prema Feliz MD PGY-2 Resident Physician Urology Pager: [phone] For weekend or after hours issues [place] [phone] SUBJECTIVE See above Objective OBJECTIVE Vital Signs BP 114/56 Pulse 61 Temp 36.9 ?C (98.4 ?F) (Oral) Resp 15 Ht 173 cm (5' 8.11 ) Wt 77.9 kg (171 lb 11.8 oz) SpO2 95% BMI 26.03 kg/m? Input and Output Intake/Output Summary (Last 24 hours) at 08/31/2022 0645 Last data filed at 08/31/2022 0600 Gross per 24 hour Intake 6174.7 ml Output 76795 ml Net -5325.3 ml Physical Exam GEN: [...] Feliz MD PGY-2 Resident Physician Urology Pager: [phone] For weekend or after hours issues please page the [place] [phone] [facility]07-13-2023 NoteHNO ID: [id number] Author: Danyell Morris MD Service: Critical Care Author Type: Anesthesiologist Type: Progress Notes Filed: 08/30/2022 3:36 PM Note Text: SERVICE DATE: 08/30/2022 SERVICE TIME: 3:25 PM SURGICAL INTENSIVE CARE UNIT PROGRESS NOTE BRIEF HPI: Olaf Briones is a 77 year old male with PMHx of recent STEMI on 08/20/22 (s/p JUHI),HTN, HLD, DM, nephrolithiasis, transferred from [facility] for gross hematuria. He is now s/p [...] Primary and SICU discussed patient transfer to [facility]. 08/30:no acute events. Hemodynamically stable. Subjective INTERVAL EVENTS: hemodynamically stable. Objective MEDICATIONS: Current medications and allergies reviewed. Recommended/planned medication changes discussed in detail in the A/P section below. Please refer to jellyfish for list of inpatient medications. VITAL SIGNS: [...] Is Patient Clinically Ready to Transfer to [facility] or SDU?: Yes, transfer to SDU or [facility] today Discharge Planning: To be determined Prevention: [...] aspirin and ticagrelor Coronary artery disease involving [facility] coronary artery of [facility] heart Assessment: STEMI on 08/19/2022 s/p JUHI [...] Prophylaxis/Anticoagulants Anticoagulant AND Antiplatel (more content not included)...[facility]07-13-2023 NoteHNO ID: [id number] Author: Prema Feliz MD Service: Urology Author Type: Resident Type: Progress Notes Filed: 08/30/2022 7:12 AM Note Text: [facility] UROLOGY PROGRESS NOTE Name: Olaf Briones Bed: H050 013/H050-13 Date: 08/30/2022 After Hours [facility] Urology Service Pager: [phone] ASSESSMENT AND PLAN Olaf Briones is a 77 year old male with PMHx of HTN, HLD, DM, recent STEMI (s/p JUHI, on Brillinta and ASA), nephrolithiasis s/p ESWL remote, BPH s/p TURP 2001, transferred from [facility] for gross hematuria. Currently with 18Fr 3-way catheter on CBI. Now 2 Days Post-Op s/p cystoscopy, clot evacuation, cystolitholapaxy, TURP. Admitted to SICU postoperatively due to pressor requirements and risk of hyponatremia due to length of TURP. 22Fr [address] hernandez placed introp, on traction and CBI. Awaiting bed on [facility]. Interval: - Afebrile, SBPs 110s - Doing [...] discharge today vs tomorrow Active Problems Prior [place] POA: Yes - placed on ASA 81, ticagrelor 90 mg BID Nephrolithiasis POA: Yes - Monitor HLD POA: Yes - Home atorva 80 mg DM POA: Yes - SSI HTN POA: Yes - amlodipine 5mg daily, carvedilol 6.25 BID, lisinopril 2.5 mg daily Prema Feliz MD PGY-2 Resident Physician Urology Pager: [phone] For weekend or after hours issues [place] [phone] SUBJECTIVE See above Objective OBJECTIVE Vital Signs BP 111/56 Pulse 61 Temp 36.7 ?C (98.1 ?F) (Axillary) Resp 12 Ht 173 cm (5' 8.11 ) Wt 84 kg (185 lb 3 oz) SpO2 96% BMI 28.07 kg/m? Input and Output Intake/Output Summary (Last 24 hours) at 08/30/2022 0558 Last data filed at 08/30/2022 0500 Gross per 24 hour Intake 6400 ml Output 71724 ml Net -4150 ml Physical Exam GEN: [...] Feliz MD PGY-2 Resident Physician Urology Pager: [phone] For weekend or after hours issues please page the [place] urology [place] at [phone] Children'S Medical Center07-12-2023 NoteHNO ID: [id number] Author: Ary Frazier RN Service: Care Management [...] oxygen, or cpaps at home. Had recent GA in past. Cardiology on consult. No current [...] 29, 2022 TIME: 12:11 PM PAGER/CONTACT #: [phone] Children'S Medical Center07-12-2023 NoteHNO ID: [id number] Author: Danyell Morris MD Service: Critical Care Author Type: Anesthesiologist Type: Progress Notes Filed: 08/29/2022 3:08 PM Note Text: SERVICE DATE: 08/29/2022 SERVICE TIME: 11:28 AM SURGICAL INTENSIVE CARE UNIT PROGRESS NOTE BRIEF HPI: Olaf Briones is a 77 year old male with PMHx of recent STEMI on 08/20/22 (s/p JUHI),HTN, HLD, DM, nephrolithiasis, transferred from [facility] for gross hematuria. He is now s/p [...] Primary and SICU discussed patient transfer to [facility]. Subjective INTERVAL EVENTS: Improved Objective MEDICATIONS: Current medications and allergies reviewed. Recommended/planned medication changes discussed in detail in the A/P section below. Please refer to Epic for list of inpatient medications. VITAL SIGNS: [...] Is Patient Clinically Ready to Transfer to [facility] or SDU?: Yes, transfer to SDU or [...] aspirin and ticagrelor Coronary artery disease involving [facility] coronary artery of [facility] heart Assessment: STEMI on 08/19/2022 s/p JUHI [...] Urology AND SICU ok for transfer to [facility] Medication and Non-Pharmacologic VTE Prophylaxis/Anticoagulants Anticoagulant AND Antiplatelet Medica (more content not included)...[facility]07-12-2023 NoteHNO ID: [id number] Author: David Andrews MD Service: Urology Author Type: Physician Type: Progress Notes Filed: 08/29/2022 7:09 PM Note Text: [facility] UROLOGY PROGRESS NOTE Name: Olaf Briones Bed: H050 013/H050-13 Date: 08/29/2022 After Hours [facility] Urology Service Pager: [phone] ASSESSMENT AND PLAN Olaf Briones is a 77 year old male with PMHx of HTN, HLD, DM, recent STEMI (s/p JUHI, on Brillinta and ASA), nephrolithiasis s/p ESWL remote, BPH s/p TURP 2001, transferred from [facility] for gross hematuria. Currently with 18Fr 3-way [...] EF 55% -Encourage IS -Continue telemetry on [facility] #GI - -Diet: Regular diet -Colace, Zofran [...] - routine #Disposition - pending course, to [facility] today if SICU agrees it is appropriate. Plan for discharge tomorrow. Active Problems Prior GA POA: Yes - placed on ASA 81, ticagrelor 90 mg BID Nephrolithiasis POA: Yes - Monitor HLD POA: Yes - Home atorva 80 mg DM POA: Yes - SSI HTN POA: Yes - amlodipine 5mg daily, carvedilol 6.25 BID, lisinopril 2.5 mg daily Prema Feliz MD PGY-2 Resident Physician Urology Pager: [phone] For weekend or after hours issues [place] [phone] CHIEF RESIDENT ADDENDUM POD#1 s/p cysto, TURP, [...] 08/29/2022 0700 Gross per 24 hour Intake 64535.5 ml Output 06642 ml Net 5853.5 ml Gen: No apparent [...] recs Gt Mcgowan MD Resident PGY-6 Urology [facility] Please page Dr. Feliz with any patient [...] 08/29/2022 0700 Gross per 24 hour Intake 85004.5 ml Output 01972 ml Net 5853.5 ml Physical Exam GEN: Alert, NAD EYES: Anicteric CV: Warm and well perfused LUNGS: Unlabored breathing on RA ABD: Soft, appropriately tender : Hernandez catheter present Labs Recent Labs 08/29/22 0323 08/29/22 0242 08/28/228 WBC 13.57* 11.86* 16.02* HB 10.6* 9.1* 12.1* HCT 30.7* 25.7* 35.7* PLT 159 138* 179 NA 136 137 139 K 4.1 4.0 4.2 CHLOR 102 103 105 CO2 22 20* 24 BUN 14 12 14 CREAT 0.69* 0.64* 0.76 GLUC 202* 186* 147* Imaging Reviewed Prema Feliz MD PGY-2 Resident Physician Urology Pager: [phone] For weekend or after hours issues [place] [phone] [facility] STAFF PHYSICIAN NOTE OF PERSONAL INVOLVEMENT IN CARE I have reviewed the progress note obtained and documented by the resident (more content not included)...[facility]07-11-2023 NoteHNO ID: [id number] Author: Molly Rosado APRN.CERAMIC MOLD DESIGNER Service: ? Author Type: Nurse Plastic Surgery Specialist Type: Anesthesia Procedure Notes Filed: 08/28/2022 7:27 PM Note Text: ANESTHESIOLOGY PROCEDURE NOTE PIV General Information Procedure Start Time/Medication Administration: 08/28/2022 7:26 PM Staffing CERAMIC MOLD DESIGNER: Molly Rosado APRN.CERAMIC MOLD DESIGNER Preparation Sterility Preparation: hand hygiene performed prior [...] August 28, 2022 TIME: 7:26 PM CSN: [id number] [facility]23 NoteHNO ID: [id number] Author: Molly Rosado APRN.CERAMIC MOLD DESIGNER Service: ? Author Type: Nurse Plastic Surgery Specialist Type: Anesthesia Procedure Notes Filed: 08/28/2022 6:31 PM Note Text: ANESTHESIOLOGY PROCEDURE NOTE Airway General Information Procedure Start Time/Medication Administration: 08/28/2022 6:10 PM Patient location during procedure: OR Timeout Performed Pre-procedure: timeout performed Consent Obtained: Yes Patient identity confirmed: arm band and patient Staffing CERAMIC MOLD DESIGNER: Molly Rosado APRN.CRNA Indications and Patient Condition [...] August 28, 2022 TIME: 6:31 PM CSN: [id number] [facility]'S [facility]07-11-2023 NoteHNO ID: [id number] Author: Prema Feliz MD Service: Urology Author Type: Resident Type: Progress Notes Filed: 08/28/2022 9:47 PM Note Text: [facility] UROLOGY PROGRESS NOTE Name: Olaf Briones Bed: H050 013/H050-13 Date: 08/28/2022 After Hours [facility] Urology Service Pager: [phone] ASSESSMENT AND PLAN Olaf Briones is a 77 year old male with PMHx of HTN, HLD, DM, recent STEMI (s/p JUHI, on Brillinta and ASA), nephrolithiasis s/p ESWL remote, BPH s/p TURP 2001, transferred from [facility] for gross hematuria. Currently with 18Fr 3-way [...] pending course, in SICU Active Problems Prior GA POA: Yes - placed on ASA 81, ticagrelor 90 mg BID Nephrolithiasis POA: Yes - Monitor HLD POA: Yes - Home atorva 80 mg DM POA: Yes - SSI HTN POA: Yes - amlodipine 5mg daily, carvedilol 6.25 BID, lisinopril 2.5 mg daily Prema Feliz MD PGY-2 Resident Physician Urology Pager: [phone] For weekend or after hours issues [place] [phone] SUBJECTIVE See above Objective OBJECTIVE Vital Signs BP 112/52 Pulse 69 Temp 36.9 ?C (98.4 ?F) (Oral) Resp 18 Ht 173 cm (5' 8.11 ) Wt 75.5 kg (166 lb 7.2 oz) SpO2 97% BMI 25.23 kg/m? Input and Output Intake/Output Summary (Last 24 hours) at 08/28/20221955 Last data filed at 08/28/2022 1830 Gross per 24 hour Intake 77474 ml Output 52179 ml Net -1875 ml Physical Exam GEN: [...] Feliz MD PGY-2 Resident Physician Urology Pager: [phone] For weekend or after hours issues please page the [place] [phone] [facility]07-[facility]-2023 NoteHNO ID: [id number] Author: Prema Feliz MD Service: Urology Author Type: Resident Type: Progress Notes Filed: 08/28/2022 8:02 AM Note Text: [facility] UROLOGY PROGRESS NOTE Name: Olaf Briones Bed: H050 013/H050-13 Date: 08/28/2022 After Hours [facility] Urology Service Pager: [phone] ASSESSMENT AND PLAN Olaf Briones is a 77 year old male with PMHx of HTN, HLD, DM, recent STEMI (s/p JUHI, on Brillinta and ASA), nephrolithiasis s/p ESWL , BPH s/p TURP 2001, transferred from [facility] for gross hematuria. Currently with 18Fr 3-way [...] for cysto, fulguration today Active Problems Prior GA POA: Yes - placed on ASA 81, ticagrelor 90 mg BID Nephrolithiasis POA: Yes - Monitor HLD POA: Yes - Home atorva 80 mg DM POA: Yes - SSI HTN POA: Yes - amlodipine 5mg daily, carvedilol 6.25 BID, lisinopril 2.5 mg daily Essential elements of above plan discussed with staff, Dr. Sharon Feliz MD PGY-2 Resident Physician Urology Pager: [phone] For weekend or after hours issues [place] [phone] SUBJECTIVE See above Objective OBJECTIVE Vital Signs BP 116/57 Pulse 69 Temp 36.5 ?C (97.7 ?F) (Oral) Resp 18 Ht 173 cm (5' 8.11 ) Wt 75.5 kg (166 lb 7.2 oz) SpO2 97% BMI 25.23 kg/m? Input and Output Intake/Output Summary (Last 24 hours) at 08/28/2022 0722 Last data filed at 08/28/2022 0716 Gross per 24 hour Intake 12962.5 ml Output 31560 ml Net -50309.5 ml Physical Exam GEN: Alert, NAD EYES: Anicteric CV: Warm and well perfused LUNGS: Unlabored breathing on RA ABD: Soft, appropriately tender : Hernandez catheter present Labs Recent Labs 08/27/22 0710 WBC 16.24* HB 13.4 HCT 38.5* PLT 214 NA 140 K 4.3 CHLOR 105 CO2 22 BUN 17 CREAT 0.79 GLUC 197* Imaging Reviewed Prema Feliz MD PGY-2 Resident Physician Urology Pager: [phone] For weekend or after hours issues please page the [place] [phone] [facility]'S [facility]07-10-2023 NoteHNO ID: [id number] Author: Naomy Adkins MD Service: Urology Author [...] antispasmodics (ditropan, belladonna and opium suppositories, levsin, etc).[facility]07-09-2023 Evaluation + Plan noteExtracted from: Title:Urology Consult and H&P 2 Author:Alexandre KOROMA MD Date:08/26/22 Patient: OLAF BRIONES Age: 77 years Sex: Male : 1945 Associated Diagnoses: None Author: MARCELL HAHN, Alexandre Teixeira Chief Complaint 08/26/2022 17:07 EDT pt to ER with c/o lower pelvic pain and blood clots in urine that started saturday. history of kidney stones. just had a stent placed last saturday at [facility]. sees dr ivory Thank for consultation on [...] BPH with urinary obstruction / SNOMED CT 9055396420 / Confirmed Kidney stone / SNOMED CT 819068417 / Confirmed Weak urinary stream / SNOMED CT 559250200 / Confirmed Microscopic hematuria / SNOMED CT 036199807 / Confirmed Diabetes / SNOMED CT 557770067 / Confirmed Hypertension / SNOMED CT 1050120359 / Confirmed Prostatitis / SNOMED CT 67010045 / Confirmed BPH without urinary obstruction / SNOMED CT 0485367772 / Confirmed Gross hematuria / SNOMED CT 045599204 / Confirmed Asymptomatic microscopic hematuria / SNOMED CT 7675489307 / Confirmed, Active Problems (10) Asymptomatic microscopic hematuria BPH with urinary obstruction BPH without urinary obstruction Diabetes Gross hematuria Hypertension Kidney stone Microscopic hematuria Prostatitis Weak urinary stream Histories Past Medical History: No active or resolved past medical history items have been selected or recorded. Family History: Hypertension Father Procedure history: Cystoscopy (35250889) on 08/18/2013 at 68 Years. Comments: 10/02/2018 16:11 Katie Rincon MA 11/08/200904/2006 TURP - Transurethral resection of prostate (273590707) in 2006 at 61 Years. Urodynamics (252256057) in 2006 at 61 Years. Transrectal biopsy of prostate using ultrasound (US) guidance (8023653875) in 2005 at 60 Years. ESWL - Extracorporeal shockwave lithotripsy for renal calculus (723742315) in 2000 at 55 Years. Comments: 10/02/2018 16:11 Katie Rincon MA LEFT Social History Social & Psychosocial Habits Alcohol 10/24/2018 Use: Current Frequency: 1-2 times per month 08/26/2022Risk Assessment: Denies Alcohol Use Substance Abuse 08/26/2022Risk Assessment: Denies Substance Abuse Tobacco 10/21/2020 Tobacco Use: Never (less than 100 in l 08/26/2022k Assessment: Denies Tobacco Use . Physical Examination [...] Normal range of motion. Integumentary: Warm, Dry, Burt. Neurologic: Alert, Oriented, Normal sensory. Psychiatric: Cooperative, [...] % HI Lymph Auto 6.1 % LOW [place] Auto 4.9 % Eos Auto 0.9 % Basophil Auto 0.5 % Neutro Absolute 13.5 E9/L HI Lymph Absolute 0.9 E9/L LOW [place] Absolute 0.8 E9/L Eos Absolute 0.1 E9/L [...] and Plan Diagnosis Abnormal CT scan, bladder (UQV98-AY R93.41, Working, Medical). Anticoagulated by anticoagulation treatment (BVB20-UC Z79.01, Working, Medical). BPH with obstruction/lower urinary tract symptoms (KID32-GW N40.1, Working, Medical). Gross hematuria (OPS94-VE R31.0, Discharge, Medical). S/P TURP (status post transurethral resection of prostate) (XJW53-FO Z90.79, Working, Medical). Urinary retention (BGF17-NP R33.9, Discharge, Medical). Course: Worsening, Viewed CT [...] be recommended. N.p.o. after midnight. Addendum by MARCELL HAHN, Alexandre Teixeira on August 26, 2022 22:22 EDT Repeat [...] do not currently have available here at [facility] continuously. I discussed this extensively with the patient. Although disappointed, he understands the predicament. I would recommend tertiary care transfer after discussing all this with Dr. Salguero from internal medicine/hospitalist service. Extracted from: Title:ED Note Author:Abdulkadir Villatoro, Keith Arnold Sunny te:08/26/22 1. Urinary retention (R33.9: Retention of [...] 08:30:00 AM Scheduled Provider:Shanna IVORY MD Location:[facility] Appointment Type:URO Office Visit [facility]07-05-2023 Hospital Discharge instructions Additional Instructions DISCHARGE INSTRUCTIONS [...] doctor or pharmacist, without first calling the salon professional who implanted the stent. If you require [...] weight lifting, stair steppers, etc. until the salon professional approves these activities. Check with the salon professional on your first follow-up visit. CALL YOUR PHYSICIAN at [phone]: -If bleeding should occur from the catheter insertion site- apply pressure to the site then immediately call us. -Report any fever, redness, drainage, increased swelling, or firmness at the catheter insertion site. Some bruising or slight swelling may be present at the time of discharge. -Should arm or leg become cold, numb, white, or blue, contact the salon professional immediately. -IF you should experience episodes of [...] is recommended. Please call Central Scheduling at [phone] to schedule your appointment.] The attending salon professional or [facility] nurse clinician should provide you with specific instructions regarding activity, diet, medications, and further follow up for you. Follow the medication instructions provided on your discharge. If the dosages and instructions on this sheet differ from the dosage and instructions on the bottle, follow the instructions on the bottle. [facility] is not responsible for incorrect prescription information provided by the patient during their visit. Do not stop your medications without consulting your health care provider. Please take the list with you to your next doctor's appointment.[facility] Work Phone: 1(900) 841-640607-04-2023 Consult note Author Juanito Barney [facility] August 21, 2022 11:41am Note Date/Time August 21, 2022 11:41 am [facility] [address] [place] [address] Pulmonology Consult Note Signed Patient: Olaf Briones MR#: [id number] : 1945 Acct:[id number] Age/Sex: 77 / M Adm Date: 3 Loc: Room: 4F0917-8 Type: REG SDC Attending Dr: Steven Zamora DO Copies to: NON STAFF MD Steven Lerma, DO~ HPI Date/Time of Consultation: Date of Service: [...] ST elevation in the inferior lateral leads. Supervisor Uranium Processing was activated, patient received PCI to RCA. [...] 08/21/22 10:00 08/21/22 10:00 08/21/22 10:00 Narrative: AGRICULTURAL CHEMICALS INSPECTOR: Alert and oriented x3. No focal deficits. [...] found to have inferior lateral ST elevation GA along with complete heart block. Supervisor Uranium Processing was activated, patient received PCI to RCA. Patient is currently doing much better with no signs or symptoms of heart block,he is on room air. Optimizing cardiac meds as per cardiology. Glycemic control DVT prophylaxis Discussed with nursing staff Documented By: Juanito Barney MD 08/21/22 113 6 Signed By: <Electronically signed by Juanito Barney MD> 08/21/22 1141 [facility] Work Phone: 1(155) 922-975207-04-2023 Progress note Author Elpidio Andres [facility] August 21, 2022 8:11am Note Date/Time August 21, 2022 8:11a m [facility] [address] [place] [address] Cardiology Progress Note Signed Patient: Olaf Briones MR#: [id number] : 1945 Acct:[id number] Age/Sex: 77 / M Adm Date: 3 Loc: Room: [address] [place] [address] Type: REG SDC Attending Dr: Steven Zamora [...] % (Auto) 64.1 Lymph % (Auto) 26.2 [place] % (Auto) 7.9 Eos % (Auto) 1.3 Baso % (Auto) 0.5 Nucleat RBC Rel Count 0.1 Neut # (Auto) 6.9 Lymph # (Auto) 2.8 [place] # (Auto) 0.9 H Eos # (Auto) [...] MPV Neut % (Auto) Lymph % (Auto) [place] % (Auto) Eos % (Auto) Baso % (Auto) Nucleat RBC Rel Count Neut # (Auto) Lymph # (Auto) [place] # (Auto) Eos # (Auto) Baso # [...] MPV Neut % (Auto) Lymph % (Auto) [place] % (Auto) Eos % (Auto) Baso % (Auto) Nucleat RBC Rel Count Neut # (Auto) Lymph # (Auto) [place] # (Auto) Eos # (Auto) Baso # (Auto) Monocyte Dist Width PT INR APTT PHA Creatinine Clear Sodium Potassium Chloride Carbon Dioxide Anion Gap BUN Creatinine Est GFR (CKD-EPI) Glucose Calcium Total Creatine Kinase Troponin I High Sens 9010.4 H* 20146.3 H* 25643.9 H* B-Natriuretic Peptide Triglycerides Cholesterol LDL Cholesterol, Calc VLDL Cholesterol HDL Cholesterol Cholesterol/HDL Ratio 08/21/22 08/21/22 08/21/22 05:30 05:30 05:30 Corrected WBC 13.6 H Uncorrected WBC Count 13.6 H RBC 4.66 Hgb 14.6 Hct 42.7 MCV 91.6 MCH 31.4 MCHC 34.3 RDW 13.5 Plt Count 171 MPV 9.5 Neut % (Auto) 85.4 Lymph % (Auto) 8.2 [place] % (Auto) 6.1 Eos % (Auto) 0.1 Baso % (Auto) 0.2 Nucleat RBC Rel Count 0.0 Neut # (Auto) 11.7 H Lymph # (Auto) 1.1 [place] # (Auto) 0.8 Eos # (Auto) 0.0 Baso # (Auto) 0.0 Monocyte Dist Width PT INR APTT PHA Creatinine Clear 74.81 Sodium 138 Potassium 3.8 Chloride 103 Carbon Dioxide 27.1 Anion Gap 11.7 BUN 12 Creatinine 0.71 Est GFR (CKD-EPI) > 60.0 Glucose 162 H Calcium 9.4 Total Creatine Kinase Troponin I High Sens 26357.9 H* B-Natriuretic Peptide Triglycerides 124 Cholesterol 132 [...] evolution today [facility] (2) Heart block: Assessment/Problem Details: Resolved with hinduism of flow to the dominant right coronary [...] signed by Elpidio Andres MD> 08/21/22 0811 [facility] Work Phone: 1(615) 729-866307-03-2023 History and physical note Author Steven Zamora [facility] August 20, 2022 6:29pm Note Date/Time August 20, 2022 6:24p m [facility] [address] [place] [address] Cardiology H&P Signed with Addenda Patient: Olaf Briones MR#: [id number] : 1945 Acct:[id number] Age/Sex: 77 / M Adm Date: 3 Loc: Room: [address] [place] [address] Type: REG DCC Attending Dr: Steven Zamora DO Copies to: NON STAFF Steven Zamora DO~ ADDENDUM1 Impression: Inferolateral STEMI with change in complete heart block Plan: Proceed with emergent cath and PCI. A total of 60 minutes nonprocedural critical care time were devoted to the ER staff, review of ECG, Supervisor [employer]ranium Processing staff, nursing staff, both patient and family [...] Discussed case with ER attending, reviewed ECGs; Supervisor Uranium Processing team activated, half amp of atropine ordered in addition to routine upstream antiplatelet and Antithrombin therapies. Patient arrived at the [facility] [employer] at 1659 underwent first balloon activation at [...] and no additional complaints, except as documented COUNT INCLUDES THE [facility] Medical History (Updated 08/20/22 @ 16:41 by [...] x10E3/uL Lymph # (Auto) 2.8 (1.00-4.8) x10E3/uL [place] # (Auto) 0.9 H (0.0-0.8) x10E3/uL Eos [...] <Electronically signed by Steven Zamora DO> 08/20/221826 [facility] Work Phone: 1(275) 632-429707-03-2023 [facility] Procedure note [facility]07-03-2023 History general Narrative - Reported * Type Description Date Surgical History TURP 2022 Hospitalization History heart attack august 20 2022 [employer] [facility] Other 09-09-2022 Hospital Discharge instructions Patient Education [...] urethra. Follow these instructions at home: Take cagy-kfl-jurpaxb and prescription medicines only as told by [...] 02/04/2006 Document Revised: 12/30/2018 Document Reviewed: 03/11/2017 [email or web address] Patient Education 2020 [employer] Follow Up Care 10/21/2020 08:48:14 With:CACHORRO HAHN, Shanna Sánchez, URL Address: [address] [id number]- When: Unknown [facility] consult note Author Juanito Barney [facility] August 21, 2022 11:41am Note Date/Time August 21, 2022 11:41 am [facility] [address] [id number] Pulmonology Consult Note Signed Patient: Olaf Briones MR#: [id number] : 1945 Acct:[id number] Age/Sex: 77 / M Adm Date: 3 Loc: Room: [address] [place] [address] Type: [facility] Attending Dr: Steven Zamora DO Copies to: NON STAFF MD Steven Lerma, DO~ HPI Date/Time of Consultation: Date of Service: [...] ST elevation in the inferior lateral leads. Supervisor Uranium Processing was activated, patient received PCI to RCA. [...] 08/21/22 10:00 08/21/22 10:00 08/21/22 10:00 Narrative: AGRICULTURAL CHEMICALS INSPECTOR: Alert and oriented x3. No focal deficits. [...] found to have inferior lateral ST elevation GA along with complete heart block. Supervisor Uranium Processing was activated, patient received PCI to RCA. Patient is currently doing much better with no signs or symptoms of heart block,he is on room air. Optimizing cardiac meds as per cardiology. Glycemic control DVT prophylaxis Discussed with nursing staff Documented By: Juanito Barney MD 08/21/22 113 6 Signed By: <Electronically signed by Juanito Barney MD> 08/21/22 1141 [facility] Work Phone: Discharge summary Author Steven Zamora [facility] August 22, 2022 3:21pm Note Date/Time August 22, 2022 3:17p m [facility] [address] [place] [address] Discharge Summary Signed Patient: Olaf Briones MR#: [id number] : 1945 Acct:[id number] Age/Sex: 77 / M Adm Date: 3 Loc: Room: [address] [place] [address]: Steven Zamora DO Copies to: [...] JUHI - W Steve Zamora DO s DORIAN Closure Device Placement 0 - W Steve [...] % (Auto) 72.5, Lymph % (Auto) 15.9, [place] % (Auto) 9.7, Eos % (Auto) 1.6, Baso % (Auto) 0.3, Nucleat RBC Rel Count 0.1, Neut # (Auto) 6.4, Lymph # (Auto) 1.4, [place] # (Auto) 0.9 H, Eos # (Auto) [...] doctor or pharmacist, without first calling the salon professional who implanted the stent. If you require [...] weight lifting, stair steppers, etc. until the salon professional approves these activities. Check with the salon professional on your first follow-up visit. CALL YOUR PHYSICIAN at [phone]: -If bleeding should occur from the catheter insertion site- apply pressure to the site then immediately call us. -Report any fever, redness, drainage, increased swelling, or firmness at the catheter insertion site. Some bruising or slight swelling may be present at the time of discharge. -Should arm or leg become cold, numb, white, or blue, contact the salon professional immediately. -IF you should experience episodes of [...] is recommended. Please call Central Scheduling at [phone] to schedule your appointment.] The attending salon professional or [facility] nurse clinician should provide you with specific instructions regarding activity, diet, medications, and further follow up for you. Follow the medication instructions provided on your discharge. If the dosages and instructions on this sheet differ from the dosage and instructions on the bottle, follow the instructions on the bottle. [facility] is not responsible for incorrect prescription information [...] signed by Steven Zamora DO> 08/22/22 1521 [facility] Work Phone: Evaluation + Plan note Future Appointments Appointment Date:11/02/2022 08:30:00 AM Scheduled Provider:Shanna IVORY MD Location:[facility] Appointment Type:URO Office Visit [facility] evaluation note* Diagnosis Onset Date Resolution Status Heart block acute ST elevation (STEMI) myocardial infarction acute Syncope acute [facility] Work Phone: Evaluation note* Diagnosis Arteriosclerotic cardiovascular disease- Primary Unspecified cardiovascular disease Abnormal EKG Nonspecific abnormal electrocardiogram (ECG) (EKG) Mixed hyperlipidemia Primary hypertension Unspecified essential hypertension Post PTCA Postsurgical percutaneous transluminal coronary angioplasty status Essential hypertension Unspecified essential hypertension BMI 26.0-26.9,adult Easy bruisability Other symptoms involving skin and integumentary tissues documented in this encounter [facility] Work Phone: History and physical note Author Steven Zamora [facility] August 20, 2022 6:29pm Note Date/Time August 20, 2022 6:24p m [facility] [address] [place] [address] Cardiology H&P Signed with Addenda Patient: Olaf Briones MR#: [id number] : 1945 Acct:[id number] Age/Sex: 77 / M Adm Date: 3 Loc: Room: [address] [place] [address] Type: [place] [facility] [place]: Steven Zamora DO Copies to: NON STAFF Steven Zamora DO~ ADDENDUM1 Impression: Inferolateral STEMI with change in complete heart block Plan: Proceed with emergent cath and PCI. A total of 60 minutes nonprocedural critical care time were devoted to the ER staff, review of ECG, [employer] staff, nursing staff, both patient and family both pre and post procedurally Addendum Documented By: Steven Zamora DO 08/20/22 1829 Addendum Signed By: <Electronically signed by Steven Zamora DO> 08/20/22 1829 Date of Service: 08/20/2022 Cardiology HPI History [...] Discussed case with ER attending, reviewed ECGs; [employer] team activated, half amp of atropine ordered in addition to routine upstream antiplatelet and Antithrombin therapies. Patient arrived at the [facility] [employer] [facility] at 1659 underwent first balloon activation at [...] and no additional complaints, except as documented COUNT INCLUDES THE [facility] Medical History (Updated 08/20/22 @ 16:41 by [...] x10E3/uL Lymph # (Auto) 2.8 (1.00-4.8) x10E3/uL [place] # (Auto) 0.9 H (0.0-0.8) x10E3/uL Eos [...] <Electronically signed by Steven Zamora DO> 08/20/221826 [facility] Work Phone: History of Present illness Narrative* [...] notify me with change in cardiac status [facility] 250 DO Work Phone: History of Present [...] notify me with change in cardiac status [facility] 250 DO Work Phone: History of Present [...] he developed hematuria ultimately went to the [facility] where he underwent TURP and removal of [...] me change in cardiac status or symptoms [facility] 250 DO Work Phone: Hospital course Narrative No data available for this section [facility] Hospital Discharge instructions No data available for this section [facility] data available for this section [facility] progress note Author Elpidio Andres [facility] August 21, 2022 8:11am Note Date/Time August 21, 2022 8:11a m [facility] [address] [place] [address] Cardiology Progress Note Signed Patient: Olaf Briones MR#: [id number] : 1945 Acct:[id number] Age/Sex: 77 / M Adm Date: 3 Loc: Room: [address] [place] [address] Type: REG [facility] Attending Dr: Steven Zamora [...] % (Auto) 64.1 Lymph % (Auto) 26.2 [place] % (Auto) 7.9 Eos % (Auto) 1.3 Baso % (Auto) 0.5 Nucleat RBC Rel Count 0.1 Neut # (Auto) 6.9 Lymph # (Auto) 2.8 [place] # (Auto) 0.9 H Eos # (Auto) [...] MPV Neut % (Auto) Lymph % (Auto) [place] % (Auto) Eos % (Auto) Baso % (Auto) Nucleat RBC Rel Count Neut # (Auto) Lymph # (Auto) [place] # (Auto) Eos # (Auto) Baso # [...] MPV Neut % (Auto) Lymph % (Auto) [place] % (Auto) Eos % (Auto) Baso % (Auto) Nucleat RBC Rel Count Neut # (Auto) Lymph # (Auto) [place] # (Auto) Eos # (Auto) Baso # (Auto) Monocyte Dist Width PT INR APTT PHA Creatinine Clear Sodium Potassium Chloride Carbon Dioxide Anion Gap BUN Creatinine Est GFR (CKD-EPI) Glucose Calcium Total Creatine Kinase Troponin I High Sens 9010.4 H* 24687.3 H* 19982.9 H* B-Natriuretic Peptide Triglycerides Cholesterol LDL Cholesterol, Calc VLDL Cholesterol HDL Cholesterol Cholesterol/HDL Ratio 08/21/22 08/21/22 08/21/22 05:30 05:30 05:30 Corrected WBC 13.6 H Uncorrected WBC Count 13.6 H RBC 4.66 Hgb 14.6 Hct 42.7 MCV 91.6 MCH 31.4 MCHC 34.3 RDW 13.5 Plt Count 171 MPV 9.5 Neut % (Auto) 85.4 Lymph % (Auto) 8.2 [place] % (Auto) 6.1 Eos % (Auto) 0.1 Baso % (Auto) 0.2 Nucleat RBC Rel Count 0.0 Neut # (Auto) 11.7 H Lymph # (Auto) 1.1 [place] # (Auto) 0.8 Eos # (Auto) 0.0 Baso # (Auto) 0.0 Monocyte Dist Width PT INR APTT PHA Creatinine Clear 74.81 Sodium 138 Potassium 3.8 Chloride 103 Carbon Dioxide 27.1 Anion Gap 11.7 BUN 12 Creatinine 0.71 Est GFR (CKD-EPI) > 60.0 Glucose 162 H Calcium 9.4 Total Creatine Kinase Troponin I High Sens 28399.9 H* B-Natriuretic Peptide Triglycerides 124 Cholesterol 132 [...] evolution [facility] (2) Heart block: Assessment/Problem Details: Resolved with hinduism of flow to the dominant right coronary [...] signed by Elpidio Andres MD> 08/21/22 0811 [facility] Work Phone: Reason for referral (narrative)* Consultation (Routine) - Authorized Specialty Diagnoses / Procedures Referred By Contac t Referred To Contact Cardiology Diagnoses Arteriosclerotic cardiovascular disease Abnormal EKG Mixed hyperlipidemia Procedures Follow Up In Cardiology Ashutosh Ling MD [address] [facility], [address] [address] Ashutosh Ling MD [address] [facility] [address], [address] [place] [address] Referral ID Status Reason Start Date Expiration Date V isits Requested Visits Authorized [id number] Authorized 01/09/2023 01/09/2024 1 1 [facility] Work Phone: Family History No Family [...] Date/ Time Advance Directives No August 20 3 4:37pm Chief Complaint and Reason for Visit [...] DO Emergency Provider Active Steven Zamora DO Attending Provider Active Contract Mail Carrier Relationship Specialty Start Date End Date Jame Barraza MD [address] [place] [address] PCP - General Family Medicine 08/31/22 Contract [employer]rier Relationship Specialty Start Date End Date Jame Barraza MD [address] [place] [address] PCP - General Family Medicine 08/31/22 Contract [employer]rier Relationship Specialty Start Date End Date Ashutosh Ling MD [address] [facility] [address], [address] [place] [address] PCP - [employer] PCP 08/18/22 Dav Peguero MD [address] [facility] [address] [place] [address] PCP - General Family Medicine 01/09/23 (unrecognized sect ion and content) No Status Records FoundNo Status Records FoundNo Status Records FoundNo Status Records FoundNo Status Records FoundNo Status Records FoundNo Status Records FoundNo Status Records FoundNo Status Records Found INFORMATION SOURCE (unrecogn ized section and content) DATE CREATED AUTHOR 11/15/2021 [facility] DATE CREATED AUTHOR AUTHOR'S ORGANIZ ATION 09/01/2022 [facility] DATE CREATED AUTHOR AUTHOR'S ORGANIZ ATION 09/06/2022 [employer] DATE CREATED AUTHOR AUTHOR'S ORGANIZ ATION 09/07/2022 [facility] DATE CREATED AUTHOR AUTHOR'S ORGANIZ ATION 10/10/2022 [facility] DATE CREATED AUTHOR AUTHOR'S ORGANIZ ATION 11/27/2022 [facility] DATE CREATED AUTHOR AUTHOR'S ORGANIZ ATION 01/12/2023 [facility] DATE CREATED AUTHOR AUTHOR'S ORGANIZ ATION 03/13/2023 [facility] DATE CREATED AUTHOR AUTHOR'S ORGANIZ ATION 03/13/2023 [facility] Goals (unrecognized section and content) Goals may be documented in a n alternate section Source Comments (unrecognize d section and content) In the event this informatio n is protected by the Federal Confidentiality of Alcohol and Drug Abuse Patient Records regulations: The Federal rules restrict any use of the information to criminally investigate or prosecute any alcohol or drug abuse patient.[facility] the event this information is protected by the Federal Confidentiality of Alcohol and Drug Abuse Patient Records regulations: The Federal rules restrict any use of the information to criminally investigate or prosecute any alcohol or drug abuse patient.[facility] FOR RECORDS PERTAINING TO PATIENTS WHO [...] BE BASED ON THE PRIMARY CLINICAL RECORDS. [facility] [employer] [facility]. provides no warranty or guarantee of the accuracy or completeness of information in this document.
[2023-03-18 08:44] VITALS: BP 136/86; PULSE 79; RESP 16; TEMP 36.9; O2SAT 98
[2023-03-18] MEDS: 0.9 % SODIUM CHLORIDE 10 ML INJ (09:32)
[2023-03-18] MEDS: BUPIVACAINE HCL 0.25% PF 25 MG/10 ML VIAL INJ (09:32)
[2023-03-18] MEDS: IOHEXOL 240 MG/ML - 10 ML VIAL INJ (09:32)
[2023-03-18] MEDS: TRIAMCINOLONE ACETONIDE 40 MG/ML VIAL INJ (09:32)
[2023-03-18] MEDS: LIDOCAINE HCL 2% PF 100 MG/5 ML VIAL INJ (09:32)
[2023-03-18 09:33] VITALS: BP 130/62; BP 131/69; PULSE 62; PULSE 64; RESP 18; O2SAT 100; O2SAT 97
--- NOTE | 2023-03-18 09:37 | W.PM.PROCNOT ---
Date of procedure: 03/18/23 Pre-op diagnosis: Lumbar stenosis with neurogenic claudication Post-op diagnosis: same as pre-op Procedure: Procedure: Bilateral L4-5 transforaminal epidural steroid injection Medications: Bupivacaine 0.25% 2cc, lidocaine 2% 1cc, kenalog 80mg The patient was seen and examined in the preoperative holding area.? Informed consent was obtained and placed on the chart.? Patient was brought to the medical procedure unit and placed in the prone position where a timeout was completed verifying the correct patient, procedure site, position, and planned special equipment using sterile aseptic technique.? Under direct fluoroscopic visualization a 25-gauge Quincke tipped spinal needle was advanced at level left L4-5 to the designated neural foramen where contrast dye was injected to show adequate spread.? There was no evidence of vascular or adverse uptake.? Epidural spread was appreciated.? The above-mentioned injectate was then placed in a 1.5 mL aliquot preceded by negative aspiration.? The needle was removed. The same procedure, at the same level, was completed on the opposite side. ? Patient was taken to the postprocedural recovery area and monitored for an appropriate length of time before found suitable for discharge in the accompaniment of a responsible adult. Anesthesia: Local Surgeon: Alonzo Briscoe Pathology: none sent Condition: stable Disposition: no change
== END 2023-03-18 09:41 | disposition home or self-care (01) ==
PROVIDERS: PCP Family Medicine; Visit Provider Anesthesiology
DX: M48.062 Spinal stenosis, lumbar region with neurogenic claudication (principal)
CPT/HCPCS: 64483; J0665; J3301; Q9966

== ENCOUNTER 2023-03-27 07:00 | Outpatient (RCR) | payer MEDICARE, SELFPAY ==
--- NOTE | 2023-03-06 13:42 | CR1_ITS ---
The [facility] Test Date: 2023-03-06 Pat Name: OLAF BRIONES Department: Room: - Gender: Male Manager Sound: : 1945 Requested By: DAV PEGUERO Order Number: [id number] Jorden MD: PABLO LYNNE Interpretive Statements Session Date: Electronically Signed On 03-07-2023 7:16:02 EST by PABLO LYNNE
--- NOTE | 2023-03-27 13:22 | CR1_ITS ---
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
== END 2023-04-18 12:00 | disposition home or self-care (01) ==
LOC: CR 07:00
PROVIDERS: PCP Family Medicine; Visit Provider Family Medicine
DX: I25.10 Atherosclerotic heart disease of native coronary artery without angina pectoris (principal); Z98.61 Coronary angioplasty status
CPT/HCPCS: 93798

== ENCOUNTER 2023-04-03 08:54 | Outpatient (OUT) | payer MEDICARE, SELFPAY ==
--- OUTSIDE RECORDS SUMMARY | 2023-04-03 09:09 | XMS_ITS | CCD ---
Author Name Unknown Address [address] [facility] [address] [place] [address] Organization [facility] Care Team Providers Care 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 Name Role Phone Jame Barraza Unavailable Unavailable Unavailable JAME BARRAZA Primary Care Physician DR SHANNA IVORY Attending Unavailable CHRISTI, DR JAME Bowers Primary Care Unavailable DR SHANNA IVORY Admitting Unavailable DR SHANNA IVORY Consulting Unavailable [place], DR AMNA Saucedo Consulting Unavailable DOMINGUEZ GUTIERREZ Admitting Unavailable DOMINGUEZ GUTIERREZ Attending Unavailable DR JAME BARRAZA Primary Care Unavailable NON STAFF Primary Care Provider UnavailDO Reymundo Perezic Emergency Provider DO Steven Zamora Attending Provider NON STAFF Primary Care Provider Unavailsigrid Cochran DO Shannon Emergency Provider DO Steven Zamora Admit Provider DO Steven Zamora Attending Provider MD Juanito Barney Other Provider JAME BARRAZA Primary Care Physician [phone] Steven Zamora Admitting Unavailable Steven Zamora Attending [...] KOROMA Attending Unavailable Ashutosh Ling MD Unavailable [phone] Dav Peguero MD Primary Care Provider ASHUTOSH LING Attending Unavailable DAV PEGUERO Primary Care Unavailable DAV PEGUERO Attending Unavailable Rachna HAHN, Alonzo Bobo Attending Unavailable Rachna HAHN, Alonzo Bobo Attending Unavailable Allergies Allergy Classification Reported Allergen(s) Allergy Type Date of Onset Reaction(s) Facility (20 sources) Albuterol; Translations: [albuterol] Drug Allergy 11-12-19 12 Headache (finding), Other: See Comments, Headache [facility] (17 sources) hydroCHLOROthiazide; Translations: [hydroCHLOROthiazide TABS] Drug Allergy 08-21-19 23 Eruption of skin (disorder), Rash [facility] (4 sources) Sulfamethoxazole / Trimethoprim; Translations: [sulfamethoxazole-trim ethoprim] Drug Allergy Unknown (qualifier value) [facility] (1 source) Albuterol Drug Allergy [facility] (6 sources) hydroCHLOROthiazide; Translations: [HYDROCHLOROTHIAZIDE] Drug Allergy 08-21-19 Rash [facility] Repository (2 sources) Adhesive Tape; Translations: [adhesive tape] Propensity to adverse reactions 08-22-19 [facility] (1 source) Albuterol Drug Allergy 08-21-19 23 [facility] (1 source) hydroCHLOROthiazide Drug Allergy 08-21-19 [facility] Repository Medications Current Medications Medication Drug Class(es) [...] Coronary arteriosclerosis; Translations: [Atherosclerotic heart disease of [place] coronary artery without angina pectoris] Onset: 08-27-2022 [...] Urnls Dip Stick Auto w/o Microscopy POC 11751 XR Abdomen 1 View -- Results Pending [...] HAHN, Shanna Sánchez Where: [facility] Pathology Noteon 11-26-2022 Pathology Note [id number]#1.00TIFF [facility] Patient Educationon 11-27-19 Patient Education Nephrology [...] ? 8 oz (237 mL) of milk, ykubbpu-kujxmaivbvac-pgttj milk, and calcium-fortifiedfruit juice. Calcium-fortified means that [...] Spinach (cooked), rhubarb, beets, sweet potatoes, and [place] Citizen chard. ? Peanuts. ? Potato chips, moldovan fries, and baked potatoes with skin on. ? Nuts and nut products. ? Chocolate. ? If you regularly take a diuretic medicine, make sure to eat at least 1 or 2 servings of fruits or vegetables that are high in potassium each day. These include: ? Avocado. ? Banana. ? [place], prune, carrot, or tomato juice. ? Baked [...] fish oil, or vitamin B6. ? Take whsq-otd-xouvclh and prescription medicines only as told by your health care provider. These include supplements. What foods should I limit? Limit your in (more content not included)... Normal [facility] RAD - MISCon 11-26-2022 [facility] MIS [id number]#1.00TIFF Normal [facility] Urology Office/Clinic Noteon 11-26-2022 Urology Office/Clinic Note Chief Complaint 1yr KUB HPI Staff Pt is here today for 1yr KUB due to BPH, Kidney Stone & Microscopic Hematuria. *Allopurinol 300mg qd therapy. At that time PRW discussed DC'ing PSA checks due to pt's advancing age. Since then pt has gone to [facility] ER 08/26/22 CC: Lower Pelvic Pain & Blood clots in urine PVR at that time 500ml Catheter Placed C&S 600 cfu/ml Staphylococcus species coagulase negative Sandy not indicative of a Cath specimen CTU 08/26/22 Dr Koroma did see pt, due to recent cardiac cath & heart attack, pt was transferred to [facility]. There pt underwent Cysto/Clot Evacuation/Litholapaxy & TURP [...] age. Since then pt has gone to [facility] 08/26/22 CC: Lower Pelvic Pain & Blood clots in urine PVR at that time 500ml Catheter Placed C&S 600 cfu/ml Staphylococcus species coagulase negative Sandy not indicative of a Cath specimen CTU 08/26/22 Dr Koroma did see pt, due to recent cardiac cath & heart attack, pt was transferred to [facility]. There pt underwent Cysto/Clot Evacuation/Litholapaxy & TURP [...] stones. Stone Analysis done 08/28/22 - CaOx [place] 50%, CaOx [place] 40%, and minor components [...] [facility] [address], [place] [address]- Additional Instructions: w/KUB Patient Education Dietary Guidelines [...] trigone, bladder n (more content not included)... [facility] Comment on above: Result Comment: Elec tronically Signed By: CACHORRO HAHN, Shanna Sánchez\.br\Date and Time Signed: 11/26/22 14:10 EDT\.br\Electronically Co-Signed By: Sheila Tripathi.br\Date and Time Co-Signed: 11/26/22 14:08 EDT Physician Orderon 11-20-2022 Physician Order [id number]#1.00CD:127 [facility] Auth for Release of Medical Recordson 09-27-2022 Auth for Release of Medical Records [id number]#1.00CD:127 [facility] Consultation Noteon 09-20-19 Consultation Note [id number]#1.00CD:127 [facility] Consultation Note [id number]#1.00CD:127 [facility] Consultation Note [id number]#1.00CD:127 [facility] Consultation Note [id number]#1.00CD:127 [facility] Lab Reportson 09-19-2022 Lab Reports [id number]#1.00CD:[address] [facility] Lab Reports [id number]#1.00CD:[address] [facility] Lab Reports [id number]#1.00CD:127 [facility] Lab Reports [id number]#1.00CD:127 [facility] Operative Reporton 3 Operative Report [id number]#1.00CD:127 [facility] Operative Report [id number]#1.00CD:127 [facility] CNPNon 09-06-2022 CNPN Telephone (UROLMN) -- OLAF BRIONES ([id number]) 1945 M Date Time Provider Department 09/06/22 JUSTINE WILSON During your visit today, we recorded the following information about you: Justine Wilson RN 09/06/2022 10:31 AM Signed ----- Message from Jocelin Gr sent at 09/06/2022 8:23 AM EDT ----- Regarding: medciation script needed Contact: Pt is calling in to see if the flomax can be called in. The pharmacy is not at [facility]. I will need to call them when [...] Hematuria [R31.9] 08/27/2022 Coronary artery disease involving [place] hinton*08/27/2022 Adverse reaction to antiplatelet agent [T45.7X5*08/27/2022 Myocardial infarction (HCC) [I21.9] 08/27/2022 Essential (primary) hypertension [I10] 08/27/2022 Type 2 diabetes mellitus without complication, *08/27/2022 Leukocytosis [D72.829] 08/27/2022 Malnutrition of mild degree (HCC) [E44.1] 08/29/2022 Encounter Status:Closed by JUSTINE WILSON RN on 09/06/22 [facility] Ambulatory Visit Summaryon 0 09-05-2022 Ambulatory [...] HAHN, Shanna Sánchez Where: [facility] Office Visit (Cardiology)on 09-05-2022 Follow-up visit Diagnoses/Problems [...] Status: Hold For - Scheduling Requested for: [id number] Agreement : I agree to have my patient participate in the phase III outpatient cardiac rehabilitation program after completion of the phase II program. Consent : I consent to have my patient participate in the cardiac rehabilitation program. I will continue regular medical care of my patient throughout his/her participation in the program. Individualized Treatment Plan and Exercise Prescription : Request the Software Engineer Backend to share responsibility for developing an ITP [...] in adult Healthy Weight Tips; Status:Complete; Done: [id number] Some eating tips that can help you lose weight.; Status:Complete; Done: 15Snd8919 SocHx: Former smoker Tobacco Use Screening; Status:Complete; Done: [id number] Patient Instructions Please bring all medicines, vitamins, and herbal supplements with you when you come to the office. Prescriptions will not be filled unless you are compliant with your follow up appointments or have a follow up appointment scheduled as per instruction of your physician. Refills should be requested at the time of your visit. Follow up in 4 months [facility] cardiac rehab -one month History [...] he developed hematuria ultimately went to the [facility] where he underwent TURP and removal [...] 1 TABLET (more content not included)... Normal [facility] Tobacco Screening.on 023 Adult depression screening assessment No [facility] [employer] DO Work Phone: Fall risk assessment a) No falls within the last year [facility] [employer] DO Work Phone: Tobacco use status CP b) No M [facility] [employer] DO Work Phone: [facility] OLAF BRION[facility] ([id number]) 1945 Date Time Provider Department 09/04/22 DEBORAH IBARRA PODCCP During your visit today, we recorded the following information about you: Deborah Ibarra RN 09/04/2022 12:52 PM Signed PATIENT INFORMATION Record ID: [id number] Patient Name: [facility]: [facility] [place]: [facility] Attending: David Andrews Center: Urology INSTRUCTIONS SN to remind patient of appointment date, time, location All Clear All Clear SURVEY INFORMATION Medical/Nurse Steward/Stewardess Economy Class: Deborah Ibarra 1. Your discharge instructions are [...] Reason for Visit: Follow Up Phone Call [5437] Cmt: All Clear Prescriptions as of 09/04/2022 [...] Hematuria [R31.9] 08/27/2022 Coronary artery disease involving [place] hinton*08/27/2022 Adverse reaction to antiplatelet agent [T45.7X5*08/27/2022 Myocardial infarction (HCC) [I21.9] 08/27/2022 Essential (primary) hypertension [I10] 08/27/2022 Type 2 diabetes mellitus without complication, *08/27/2022 Leukocytosis [D72.829] 08/27/2022 Malnutrition of mild degree (HCC) [E44.1] 08/29/2022 Encounter Status:Closed by DEBORAH IBARRA on 09/04/[address] [facility] CBC panel Auto (Bld)on 08-31 Erythrocyte distribution width (RBC) [Ratio] 12.8 % Normal 11.5-15.[address] [facility] Comment on above: Order Comment: Speci men Type: BLOOD SPECIMENOrdering Facility: [facility] Address: [address] [address] Performed By: #### 5 8410-2 ####[facility]IA [id number] [place] [address] [place] Hematocrit (Bld) [Volume fraction] 30.7 % Low 39.0-51.[address] [facility] Comment on above: Order Comment: Speci men Type: BLOOD SPECIMENOrdering Facility: [facility] Address: [address] [address] Performed By: #### 5 8410-2 ####[facility] LABCLIA [id number] [place] [address] [place] Hemoglobin (Bld) [Mass/Vol] 10.4 g/dL Low 13.0-17.[address] [facility] Comment on above: Order Comment: Speci men Type: BLOOD SPECIMENOrdering Facility: [facility] Address: [address] [place], [place] [address] Performed By: #### 5 8410-2 ####[facility] LABCLIA [id number] [address] [place] MCH (RBC) [Entitic mass] 31.4 pg Normal 26.0-34.[address] [facility] Comment on above: Order Comment: Speci men Type: BLOOD SPECIMENOrdering Facility: [facility] Address: [address] [place], [place] [address] Performed By: #### 5 8410-2 ####[facility] LABCL[facility] [id number] [address] [place] MCHC (RBC) [Mass/Vol] 33.9 g/dL Normal 30.5-36.0 [facility] Comment on above: Order Comment: Speci men Type: BLOOD SPECIMENOrdering Facility: [facility] Address: [address] [place], [place] [address] Performed By: #### 5 8410-2 ####[facility] LABCLIA [id number] [place] [address] [place] MCV (RBC) [Entitic vol] 92.7 fL Normal 80.0-100.0 [facility] Comment on above: Order Comment: Speci men Type: BLOOD SPECIMENOrdering Facility: [facility] Address: [address] [place], [place] [address] Performed By: #### 5 8410-2 ####[facility] LABCLIA [id number] [address] [place] Nucleated RBC (Bld) [#/Vol] 10*3/uL Normal <0.[address] [facility] Comment on above: Order Comment: Speci men Type: BLOOD SPECIMENOrdering Facility: [facility] Address: [address] Performed By: #### 5 8410-2 ####[facility] [id number] [place] [address] [place] Platelet mean volume (Bld) [Entitic vol] 11.5 fL Normal 9.0-12.[address] [facility] Comment on above: Order Comment: Speci men Type: BLOOD SPECIMENOrdering Facility: [facility] Address: [address] [place], [place] [address] Performed By: #### 5 8410-2 ####[facility] [id number] [place] [address] [place] Platelets (Bld) [#/Vol] 194 10*3/uL Normal 150-[address] [facility] Comment on above: Order Comment: Speci men Type: BLOOD SPECIMENOrdering Facility: [facility] Address: [address] [place], [place] [address] Performed By: #### 5 8410-2 ####[facility] [id number] [place] [address] [place] RBC (Bld) [#/Vol] 3.31 10*6/uL Low 4.20-6.00 [facility] Comment on above: Order Comment: Speci men Type: BLOOD SPECIMENOrdering Facility: [facility] Address: [address] [place], [place] [address] Performed By: #### 5 8410-2 ####[facility] [id number] [place] [address] [place] WBC (Bld) [#/Vol] 10.56 10*3/uL Normal 3.70-11.00 [facility] Comment on above: Order Comment: Speci men Type: BLOOD SPECIMENOrdering Facility: [facility] Address: [address] [place], [place] [address] Performed By: #### 5 8410-2 ####[facility] LABCLIA [id number] [address] CNon 08-31-2022 CNDS HNO ID: [id number] Author: David Andrews MD Service: Urology Author [...] stable in SICU, ready to transfer to [facility]. Hernandez light pink on traction. Discontinued on Zosyn given negative blood and urine cultures. - DOA#3/POD#2: Hemoglobin continues to be stable. Urine light pink off traction. Transferred to [facility] - DOA#4/POD#3: Will discharge today with hernandez and plan for trial of void with home urologist in 1 week. Transitions of Care Critical Issues: Discharge with hernandez LABS AND PROCEDURES PENDING AT DISCHARGE: No pending results. Consulting Teams During Hospitalization: Anesthesiology: Preop clearance Cardiology: Recent STEMI, preop clearanace Treatment Team: Attending Provider: David Andresw MD Patient Condition @ Discharge: Stable Discharge [...] Your Medications These medications were sent to [facility] [address] [place] [address] Hours: Saturday-Saturday 7am-8pm, Saturday, Saturday and Holidays [...] DATE: August 31, 2022 TIME: 8:41 AM [facility] STAFF PHYSICIAN NOTE OF PERSONAL INVOLVEMENT IN [...] (more content not included)... Normal [facility] Comprehensive metabolic 2000 panelon 08-31-2022 Albumin [Mass/Vol] 3.8 g/dL Low 3.9-4.9 [facility] Comment on above: Order Comment: Speci men Type: BLOOD SPECIMENOrdering Facility: [facility] Address: [address] [place] [address] Performed By: #### 2 432-8, , 2776-02 ####[facility] LABCLIA [id number] [place] [address] [place] ALP [Catalytic activity/Vol] 116 U/L High 38-[address] [facility] Comment on above: Order Comment: Speci men Type: BLOOD SPECIMENOrdering Facility: [facility] Address: [address] [place] [address] Performed By: #### 2 432-8, , 2776-02 ####[facility] [id number] [address] [place] ALT [Catalytic activity/Vol] 23 U/L Normal 10-[address] [facility] Comment on above: Order Comment: Speci men Type: BLOOD SPECIMENOrdering Facility: [facility] Address: [address] [place], [place] [address] Performed By: #### 2 4323-8, , 2776-02 ####[facility]CLIA [id number] [place] [address] [place] Anion gap [Moles/Vol] 9 mmol/L Normal 9-18 [facility] Comment on above: Order Comment: Speci men Type: BLOOD SPECIMENOrdering Facility: [facility] Address: [address] [place], [place] [address] Performed By: #### 2 4323-8, , 2776-02 ####[facility]CLIA [id number] [place] [address] [place] AST [Catalytic activity/Vol] 19 U/L Normal 14-[address] [facility] Comment on above: Order Comment: Speci men Type: BLOOD SPECIMENOrdering Facility: [facility] Address: [address] [place], [place] [address] Performed By: #### 2 4323-8, , 2776-02 ####[facility]CL[facility] [id number] [place] [address] [place] Bilirubin [Mass/Vol] 0.3 mg/dL Normal 0.2-1.3 [facility] Comment on above: Order Comment: Speci men Type: BLOOD SPECIMENOrdering Facility: [facility] Address: [address] [place] [address] Performed By: #### 2 4323-8, , 2776-02 ####[facility]CL[facility] [id number] [place] [address] [place] Calcium [Mass/Vol] 9.1 mg/dL Normal 8.5-10.2 [facility] Comment on above: Order Comment: Speci men Type: BLOOD SPECIMENOrdering Facility: [facility] Address: [address] [place], [place] [address] Performed By: #### 2 4323-8, , 2776-02 ####[facility]CL[facility] [id number] [place] [address] [place] Chloride [Moles/Vol] 105 mmol/L Normal 97-105 [facility] Comment on above: Order Comment: Speci men Type: BLOOD SPECIMENOrdering Facility: [facility] Address: [address] [place] [address] Performed By: #### 2 4323-8, , 2776-02 ####[facility]CL[facility] [id number] [place] [address] [place] CO2 [Moles/Vol] 25 mmol/L Normal 22-[address] [facility] Comment on above: Order Comment: Speci men Type: BLOOD SPECIMENOrdering Facility: [facility] Address: [address] [place] [address] Performed By: #### 2 4323-8, , 2776-02 ####[facility]CL[facility] [id number] [address] [place] Creatinine [Mass/Vol] 0.88 mg/dL Normal 0.73-1.22 [facility] Comment on above: Order Comment: Speci men Type: BLOOD SPECIMENOrdering Facility: [facility] Address: [address] [place] [address] Performed By: #### 2 4323-8, , 2776-02 ####[facility]CL[facility] [id number] [address] [place] ESTIMATED GLOMERULAR FILTRATION RATE 89 mL/min/1.73m??? Normal >=[address] [facility] Comment on above: Order Comment: Speci men Type: BLOOD SPECIMENOrdering Facility: [facility] Address: [address] [place] [address] Result Comment: Mariaelena mated Glomerular Filtration Rate [...] Performed By: #### 2 4323-8, , 2776-02 ####[facility]CL[facility] [id number] [place] [address] [place] Glucose [Mass/Vol] 114 mg/dL High 74-99 [facility] Comment on above: Order Comment: Speci men Type: BLOOD SPECIMENOrdering Facility: [facility] Address: [address] [place] [address] Result Comment: The [place] Diabetes Association (ADA) provides guidance for cutoff [...] Standards of Medical Care in Diabetes 2016, [place] [employer] Association. Diabetes Care. 2016.39(Suppl 1). Performed By: #### 2 4323-8, , 2776- ####[facility] [id number] [place] [address] [place] Potassium [Moles/Vol] 4.2 mmol/L Normal 3.7-5.1 [facility] Comment on above: Order Comment: Speci men Type: BLOOD SPECIMENOrdering Facility: [facility] Address: [address] [place] [address] Performed By: #### 2 4323-8, , 2776-02 ####[facility] [id number] [place] [address] [place] Protein [Mass/Vol] 6.1 g/dL Low 6.3-8.0 [facility] Comment on above: Order Comment: Speci men Type: BLOOD SPECIMENOrdering Facility: [facility] Address: [address] [place] [address] Performed By: #### 2 4323-8, , 2776-02 ####[facility] [id number] [place] [id number] [place] Sodium [Moles/Vol] 139 mmol/L Normal 136-144 [facility] Comment on above: Order Comment: Speci men Type: BLOOD SPECIMENOrdering Facility: [facility] Address: [address] [place] [address] Performed By: #### 2 4323-8, , 2776-02 ####[facility] [id number] [place] [address] [place] Urea nitrogen [Mass/Vol] 21 mg/dL Normal 9-[address] [facility] Comment on above: Order Comment: Speci men Type: BLOOD SPECIMENOrdering Facility: [facility] Address: [address] [place] [address] Performed By: #### 2 43238, , 2776-02 ####[facility] [id number] [place] [address] [place] Magnesium SerPl-mCncon 08-31 Magnesium [Mass/Vol] 2.2 mg/dL Normal 1.7-2.3 [facility] Comment on above: Order Comment: Speci men Type: BLOOD SPECIMENOrdering Facility: [facility] Address: [address] [place] [address] Performed By: #### 2 4323-8, , 2776-02 ####[facility] [id number] [place] [id number] [place] PT panel Coag (PPP)on 2022 INR Coag (PPP) [Relative time] 1.0 {INR} Normal 0.9-1.[address] [facility] Comment on above: Order Comment: Speci men Type: BLOOD SPECIMENOrdering Facility: [facility] Address: [address] [address] Result Comment: Mago min K Antagonist (VKA) Therapeutic Range: INR 2 to 3 (Target INR of 2.5) Note: For patients treated with VKA drugs, such as warfarin, the [place] [employer] 2012 Guideline recommends [...] Chest 2012, 141:7S-47S Daniel RA, et al. [facility] 2017, 70: 252-289 Performed By: #### 3 4528-0, 63814-6 ####[facility] [id number] [place] [address] [place] PT Coag (PPP) [Time] 10.4 s Normal 9.7-13.0 [facility] Comment on above: Order Comment: Speci men Type: BLOOD SPECIMENOrdering Facility: [facility] Address: [address] [place] [address] Performed By: #### 3 4528-0, 57331-0 ####[facility] [id number] [place] [id number] [place] Phosphate SerPl-mCncon 08-31 Phosphate [Mass/Vol] 3.6 mg/dL Normal 2.7-4.8 [facility] Comment on above: Order Comment: Speci men Type: BLOOD SPECIMENOrdering Facility: [facility] Address: [address] [place] [address] Performed By: #### 2 4323-8, 34858-7, 2777-1 ####[facility] LABCLIA [id number] [address] [place] THERAPY NTon 08-31-2022 THERAPY NT HNO ID: [id number] Author: Jenna Duggan, PT Service: Physical Therapy Author Type: Physical Therapist Type: Therapy (PT/OT/Speech/Resp) Filed: 08/31/2022 10:55 AM Note Text: Physical Therapy Treatment SERVICE DATE: 08/31/2022 SERVICE TIME: 40 to 1003 ROOM: [place] [address] Recommended Discharge Disposition: Home Anticipated Discharge Needs: [...] HLD, DM, recent STEMI (08/20/2022), transferred from [facility] for gross hematuria. Currently with 18Fr 3-way catheter on CBI. 08/28/22: s/p cystoscopy, clot evacuation, cystolitholapaxy, TURP. Admitted to SICU postoperatively due to pressor requirements and risk of hyponatremia due to length of TURP. 22Fr [address] hernandez placed introp, on traction and CBI. Reason for Hospital Admission: Pt 77y/o male transferred from [facility] for gross hematuria secondary to recent [...] Diagnosis: Reduced mobility-other Interventions Provided: Gait Training (92179) Gait Training (86683) Treatment Minutes: 23 $ Gait Training (93557) Billed Units: 2 units Training AND Education Provided in: Benefits of In-Hospital Mobility, Bed Mobility, Energy Conservation, Equipment, Exercise Program, Expected Functional Level, Gait Pattern, Reduction of Deviations, Patient Exercise/Therapy Program Support Needs, Positioning, Precautions/Restrictions, Role of Physical Therapy, Standing Balance, (more content not included)... Normal [facility] aPTT PPPon 08-31-2022 aPTT Coag (PPP) [Time] 25.2 s Normal 23.0-32.4 [facility] Comment on above: Order Comment: Speci men Type: BLOOD SPECIMENOrdering Facility: [facility] Address: [address] [place] [address] Performed By: #### 3 4528-0, 43765-8 ####[facility] LABIA [id number] [place] [address] [place] CBC panel Auto (Bld)on 08-30 Erythrocyte distribution width (RBC) [Ratio] 12.7 % Normal 11.5-15.[address] [facility] Comment on above: Order Comment: Speci men Type: BLOOD SPECIMENOrdering Facility: [facility] Address: [address] [place] [address] Performed By: #### 5 8410-2 ####[facility] LABIA [id number] [place] [address] [place] Hematocrit (Bld) [Volume fraction] 30.5 % Low 39.0-51.[address] [facility] Comment on above: Order Comment: Speci men Type: BLOOD SPECIMENOrdering Facility: [facility] Address: [address] [place], [place] [address] Performed By: #### 5 8410-2 ####[facility] LABIA [id number] [place] [address] [place] Hemoglobin (Bld) [Mass/Vol] 10.4 g/dL Low 13.0-17.[address] [facility] Comment on above: Order Comment: Speci men Type: BLOOD SPECIMENOrdering Facility: [facility] Address: [address] [place] [address] Performed By: #### 5 8410-2 ####[facility] [id number] [place] [address] [place] MCH (RBC) [Entitic mass] 31.7 pg Normal 26.0-34.[address] [facility] Comment on above: Order Comment: Speci men Type: BLOOD SPECIMENOrdering Facility: [facility] Address: [address] [place] [address] Performed By: #### 5 8410-2 ####[facility] [id number] [address] [place] MCHC (RBC) [Mass/Vol] 34.1 g/dL Normal 30.5-36.0 [facility] Comment on above: Order Comment: Speci men Type: BLOOD SPECIMENOrdering Facility: [facility] Address: [address] [place] [address] Performed By: #### 5 8410-2 ####[facility] [id number] [address] STATES OF [facility] MCV (RBC) [Entitic vol] 93.0 fL Normal 80.0-100.0 [facility] Comment on above: Order Comment: Speci men Type: BLOOD SPECIMENOrdering Facility: [facility] Address: [address] [place] [address] Performed By: #### 5 8410-2 ####[facility] [id number] [address] STATES [place] Nucleated RBC (Bld) [#/Vol] 10*3/uL Normal <0.[address] [facility] Comment on above: Order Comment: Speci men Type: BLOOD SPECIMENOrdering Facility: [facility] Address: [address] [place] [address] Performed By: #### 5 8410-2 ####[facility] [id number] [address] [place] Platelet mean volume (Bld) [Entitic vol] 11.6 fL Normal 9.0-12.[address] [facility] Comment on above: Order Comment: Speci men Type: BLOOD SPECIMENOrdering Facility: [facility] Address: [address] [place], [place] [address] Performed By: #### 5 8410-2 ####[facility] LABCLIA [id number] [place] [address] [place] Platelets (Bld) [#/Vol] 192 10*3/uL Normal 150-[address] [facility] Comment on above: Order Comment: Speci men Type: BLOOD SPECIMENOrdering Facility: [facility] Address: [address] [place] [address] Performed By: #### 5 8410-2 ####[facility] LABCLIA [id number] [place] [address] [place] RBC (Bld) [#/Vol] 3.28 10*6/uL Low 4.20-6.00 [facility] Comment on above: Order Comment: Speci men Type: BLOOD SPECIMENOrdering Facility: [facility] Address: [address] [place], [place] [address] Performed By: #### 5 8410-2 ####[facility] LABCLIA [id number] [place] [address] [place] WBC (Bld) [#/Vol] 15.06 10*3/uL High 3.70-11.00 [facility] Comment on above: Order Comment: Speci men Type: BLOOD SPECIMENOrdering Facility: [facility] Address: [address] [place], [place] [address] Performed By: #### 5 8410-2 ####[facility] LABCLIA [id number] [place] [address] [place] Comprehensive metabolic 2000 panelon 08-30-2022 Albumin [Mass/Vol] 3.4 g/dL Low 3.9-4.9 [facility] Comment on above: Order Comment: Speci men Type: BLOOD SPECIMENOrdering Facility: [facility] Address: [address] Performed By: #### 2 4323-8, , 2776-02 ####[facility] LABCLIA [id number] [place] [address] [place] ALP [Catalytic activity/Vol] 105 U/L Normal 38-[address] [facility] Comment on above: Order Comment: Speci men Type: BLOOD SPECIMENOrdering Facility: [facility] Address: [address] [place] [address] Performed By: #### 2 4323-8, , 2776-02 ####[facility] LABIA [id number] [place] [address] [place] ALT [Catalytic activity/Vol] 18 U/L Normal 10-[address] [facility] Comment on above: Order Comment: Speci men Type: BLOOD SPECIMENOrdering Facility: [facility] Address: [address] [place] [address] Performed By: #### 2 4323-8, , 2776-02 ####[facility] LABIA [id number] [place] [address] [place] Anion gap [Moles/Vol] 11 mmol/L Normal 9-18 [facility] Comment on above: Order Comment: Speci men Type: BLOOD SPECIMENOrdering Facility: [facility] Address: [address] Performed By: #### 2 4323-8, , 2776-02 ####[facility] LABIA [id number] [place] [address] [place] AST [Catalytic activity/Vol] 16 U/L Normal 14-[address] [facility] Comment on above: Order Comment: Speci men Type: BLOOD SPECIMENOrdering Facility: [facility] Address: [address] Performed By: #### 2 4323-8, 61701-3, 2776-02 ####[facility] LABCLIA [id number] [place] [address] [place] Bilirubin [Mass/Vol] 0.3 mg/dL Normal 0.2-1.3 [facility] Comment on above: Order Comment: Speci men Type: BLOOD SPECIMENOrdering Facility: [facility] Address: [address] Performed By: #### 2 4323-8, , 2776-02 ####[facility] LABCLIA [id number] [place] [address] [place] Calcium [Mass/Vol] 8.9 mg/dL Normal 8.5-10.2 [facility] Comment on above: Order Comment: Speci men Type: BLOOD SPECIMENOrdering Facility: [facility] Address: [address] Performed By: #### 2 4323-8, , 2776-02 ####[facility] LABIA [id number] [place] [address] [place] Chloride [Moles/Vol] 103 mmol/L Normal 97-105 [facility] Comment on above: Order Comment: Speci men Type: BLOOD SPECIMENOrdering Facility: [facility] Address: [address] Performed By: #### 2 4323-8, , 2776-02 ####[facility] LABIA [id number] [place] [address] [place] CO2 [Moles/Vol] 24 mmol/L Normal 22-[address] [facility] Comment on above: Order Comment: Speci men Type: BLOOD SPECIMENOrdering Facility: [facility] Address: [address] Performed By: #### 2 4323-8, 42605-1, 2776- ####[facility] LABIA [id number] [place] [address] [place] Creatinine [Mass/Vol] 0.77 mg/dL Normal 0.73-1.22 [facility] Comment on above: Order Comment: Speci men Type: BLOOD SPECIMENOrdering Facility: [facility] Address: [address] [place] [address] Performed By: #### 2 4323-8, , 2776-02 ####[facility] [id number] [place] [address] [place] ESTIMATED GLOMERULAR FILTRATION RATE 92 mL/min/1.73m??? Normal >=[address] [facility] Comment on above: Order Comment: Portia tay Type: BLOOD SPECIMENOrdering Facility: [facility] Address: [address] [place] [address] Result Comment: Mariaelena mated Glomerular Filtration Rate [...] Performed By: #### 2 4323-8, , 2776-02 ####[facility] LABIA [id number] [place] [id number] [place] Glucose [Mass/Vol] 124 mg/dL High 74-99 [facility] Comment on above: Order Comment: Janiei men Type: BLOOD SPECIMENOrdering Facility: [facility] Address: [address] [place] [address] Result Comment: The [place] [employer] (ADA) provides guidance for cutoff [...] Standards of Medical Care in Diabetes 2016, [place] [employer]. Diabetes Care. 2016.39(Suppl 1). Performed By: #### 2 4323-8, , 2776-02 ####[facility] LABCLIA [id number] [place] [address] [place] Potassium [Moles/Vol] 3.9 mmol/L Normal 3.7-5.1 [facility] Comment on above: Order Comment: Speci men Type: BLOOD SPECIMENOrdering Facility: [facility] Address: [address] [place] [address] Performed By: #### 2 432-8, , 2776-02 ####[facility] LABCLIA [id number] [place] [address] [place] Protein [Mass/Vol] 6.2 g/dL Low 6.3-8.0 [facility] Comment on above: Order Comment: Speci men Type: BLOOD SPECIMENOrdering Facility: [facility] Address: [address] [place], [place] [address] Performed By: #### 2 4323-8, , 2776-02 ####[facility] LABCLIA [id number] [place] [address] [place] Sodium [Moles/Vol] 138 mmol/L Normal 136-144 [facility] Comment on above: Order Comment: Speci men Type: BLOOD SPECIMENOrdering Facility: [facility] Address: [address] [place], [place] [address] Performed By: #### 2 4323-8, , 2776-02 ####[facility] LABIA [id number] [place] [id number] [place] Urea nitrogen [Mass/Vol] 22 mg/dL Normal 9-[address] [facility] Comment on above: Order Comment: Portia tay Type: BLOOD SPECIMENOrdering Facility: [facility] Address: [address] [place], [place] [address] Performed By: #### 2 4323-8, 17510-6, 2777-1 ####[facility] LABIA [id number] [place] [id number] [place] Magnesium SerPl-mCncon 08-30 Magnesium [Mass/Vol] 2.2 mg/dL Normal 1.7-2.3 [facility] Comment on above: Order Comment: Portia tay Type: BLOOD SPECIMENOrdering Facility: [facility] Address: [address] [place] [address] Performed By: #### 2 4323-8, 93371-9, 2777-1 ####[facility] [id number] [place] [id number] [place] PT panel Coag (PPP)on 2022 INR Coag (PPP) [Relative time] 1.1 {INR} Normal 0.9-1.[address] [facility] Comment on above: Order Comment: Portia tay Type: BLOOD SPECIMENOrdering Facility: [facility] Address: [address] [place] [address] Result Comment: Mago min K Antagonist (VKA) Therapeutic Range: INR 2 to 3 (Target INR of 2.5) Note: For patients treated with VKA drugs, such as warfarin, the [place] [employer] 2012 Guideline recommends [...] Chest 2012, 141:7S-47S Daniel RA, et al. [facility] 2017, 70: 252-289 Performed By: #### 3 4528-0, 17713-5 ####[facility] LABIA [id number] [address] STATES OF [place] PT Coag (PPP) [Time] 10.9 s Normal 9.7-13.0 [facility] Comment on above: Order Comment: Portia tay Type: BLOOD SPECIMENOrdering Facility: [facility] Address: [address] [place] [address] Performed By: #### 3 4528-0, 41190-7 ####[facility] [id number] [address] [place] Phosphate SerPl-mCncon 08-30 Phosphate [Mass/Vol] 3.2 mg/dL Normal 2.7-4.8 [facility] Comment on above: Order Comment: Portia tay Type: BLOOD SPECIMENOrdering Facility: [facility] Address: [address] [place] [address] Performed By: #### 2 4323-8, 11351-7, 2777-1 ####[facility] [id number] [address] [place] THERAPY NTon 08-30-2022 THERAPY NT HNO ID: [id number] Author: Jenna Duggan, PT Service: Physical Therapy Author Type: Physical Therapist Type: Therapy (PT/OT/Speech/Resp) Filed: 08/30/2022 3:12 PM Note Text: Physical Therapy Treatment SERVICE DATE: 08/30/2022 SERVICE TIME: 1337 to 1400 ROOM: [place] [address] Recommended Discharge Disposition: Home Anticipated Discharge Needs: [...] HLD, DM, recent STEMI (08/20/2022), transferred from [facility] for gross hematuria. Currently with 18Fr 3-way catheter on CBI. 08/28/22: s/p cystoscopy, clot evacuation, cystolitholapaxy, TURP. Admitted to SICU postoperatively due to pressor requirements and risk of hyponatremia due to length of TURP. 22Fr [address] hernandez placed introp, on traction and CBI. Reason for Hospital Admission: Pt 77y/o male transferred from [facility] for gross hematuria secondary to recent [...] Diagnosis: Reduced mobility-other Interventions Provided: Therapeutic Activity (09916), Gait Training (63644) Therapeutic Activity (86041) Treatment Minutes: 8 $ Therapeutic Activity (98172) Billed Units: 1 unit Gait Training (02107) Treatment Minutes: 15 $ Gait Training (92669) Billed Units: 1 unit Training AND Education Provided in: Benefits of In-Hospital Mobility, Bed Mobility, Energy Conservation, Equipment, Exercise Program, Expected Functional Level, Gait Pattern, Reduction of Deviations, Patient Exercise/Therapy Program Support Needs, Positioning, Precautions/Restrictions, Role of Physical Therapy, Standing Balance, Treatment Protocol, Transfers The Followin (more content not included)... Normal [facility] TYPE + SCREENon 08-30-2022 ABO O Normal [facility] Comment on above: Order Comment: Speci men Type: BLOOD SPECIMENOrdering Facility: [facility] Address: [address] [place] [address] Performed By: #### T SCR ####CC [facility] BANKCLIA [id number] HISTORICAL AB SCR STATUS Negative Normal [facility] Comment on above: Order Comment: Speci men Type: BLOOD SPECIMENOrdering Facility: [facility] Address: [address] [place] [address] Performed By: #### T SCR ####[facility] BLOOD BANKIA [id number] [address] Rh Nom (Bld) Positive Normal [facility] Comment on above: Order Comment: Speci men Type: BLOOD SPECIMENOrdering Facility: [facility] Address: [address] [place] [address] Performed By: #### T SCR ####[facility] BLOOD BANKIA [id number] [address] TYPE AND SCREEN EXPIRATION 09/02/2022 23:[address] [facility] Comment on above: Order Comment: Speci men Type: BLOOD SPECIMENOrdering Facility: [facility] Address: [address] [place] [address] Performed By: #### T SCR ####[facility] BLOOD BANKIA [id number] [address] aPTT PPPon 08-30-2022 aPTT Coag (PPP) [Time] 26.5 s Normal 23.0-32.4 [facility] Comment on above: Order Comment: Speci men Type: BLOOD SPECIMENOrdering Facility: [facility] Address: [address] [place] [address] Performed By: #### 3 4528-0, 27036-7 ####[facility] LABCLIA [id number] [address] C Urineon 08-29-2022 Bacteria identified Cx [...] Locations R1: This test was performed at: [facility], [address] [place] [address], [address] , , Normal [facility] Comment on above: Performed By: #### 2 980852, [id number], 8521585, [id number], [id number] #### [facility] [address] [place] [address] CBC panel Auto (Bld)on 08-29 Erythrocyte distribution width (RBC) [Ratio] 12.5 % Normal 11.5-15.[address] [facility] Comment on above: Order Comment: Speci men Type: BLOOD SPECIMENOrdering Facility: [facility] Address: [address] [place] [address] Performed By: #### 5 8410-2 ####[facility] [id number] [place] [address] [place] Hematocrit (Bld) [Volume fraction] 30.7 % Low 39.0-51.[address] [facility] Comment on above: Order Comment: Speci men Type: BLOOD SPECIMENOrdering Facility: [facility] Address: [address] [place] [address] Performed By: #### 5 8410-2 ####[facility] [id number] [place] [address] [place] Hemoglobin (Bld) [Mass/Vol] 10.6 g/dL Low 13.0-17.[address] [facility] Comment on above: Order Comment: Speci men Type: BLOOD SPECIMENOrdering Facility: [facility] Address: [address] [place] [address] Performed By: #### 5 8410-2 ####[facility] [id number] [address] STATES [facility] MCH (RBC) [Entitic mass] 32.0 pg Normal 26.0-34.[address] [facility] Comment on above: Order Comment: Speci men Type: BLOOD SPECIMENOrdering Facility: [facility] Address: [address] [place] [address] Performed By: #### 5 8410-2 ####[facility] [id number] [address] [place] MCHC (RBC) [Mass/Vol] 34.5 g/dL Normal 30.5-36.0 [facility] Comment on above: Order Comment: Speci men Type: BLOOD SPECIMENOrdering Facility: [facility] Address: [address] [place] [address] Performed By: #### 5 8410-2 ####[facility] [id number] [address] [place] MCV (RBC) [Entitic vol] 92.7 fL Normal 80.0-100.0 [facility] Comment on above: Order Comment: Speci men Type: BLOOD SPECIMENOrdering Facility: [facility] Address: [address] [place] [phone] Performed By: #### 5 8410-2 ####[facility] [id number] [address] Nucleated RBC (Bld) [#/Vol] 10*3/uL Normal <0.[address] [facility] Comment on above: Order Comment: Speci men Type: BLOOD SPECIMENOrdering Facility: [facility] Address: [address] [place] [address] Performed By: #### 5 8410-2 ####[facility] [id number] [id number] [address] [place] Platelet mean volume (Bld) [Entitic vol] 11.6 fL Normal 9.0-12.[address] [facility] Comment on above: Order Comment: Speci men Type: BLOOD SPECIMENOrdering Facility: [facility] Address: [address] [place] [address] Performed By: #### 5 8410-2 ####[facility] LABIA [id number] [place] [address] [place] Platelets (Bld) [#/Vol] 159 10*3/uL Normal 150-[address] [facility] Comment on above: Order Comment: Speci men Type: BLOOD SPECIMENOrdering Facility: [facility] Address: [address] [place], [place] [address] Performed By: #### 5 8410-2 ####[facility] LABIA [id number] [place] [address] [place] RBC (Bld) [#/Vol] 3.31 10*6/uL Low 4.20-6.00 [facility] Comment on above: Order Comment: Speci men Type: BLOOD SPECIMENOrdering Facility: [facility] Address: [address] [place], [place] [address] Performed By: #### 5 8410-2 ####[facility] LABIA [id number] [place] [address] [place] WBC (Bld) [#/Vol] 13.57 10*3/uL High 3.70-11.00 [facility] Comment on above: Order Comment: Speci men Type: BLOOD SPECIMENOrdering Facility: [facility] Address: [address] [place], [place] [address] Performed By: #### 5 8410-2 ####[facility] LABIA [id number] [place] [address] [place] Erythrocyte distribution width (RBC) [Ratio] 12.5 % Normal 11.5-15.[address] [facility] Comment on above: Order Comment: Speci men Type: BLOOD SPECIMENOrdering Facility: [facility] Address: [address] Performed By: #### 5 8410-2 ####[facility] LABCLIA [id number] [address] [place] Hematocrit (Bld) [Volume fraction] 25.7 % Low 39.0-51.[address] [facility] Comment on above: Order Comment: Speci men Type: BLOOD SPECIMENOrdering Facility: [facility] Address: [address] [place] [address] Performed By: #### 5 8410-2 ####[facility] LABIA [id number] [address] [place] Hemoglobin (Bld) [Mass/Vol] 9.1 g/dL Low 13.0-17.[address] [facility] Comment on above: Order Comment: Speci men Type: BLOOD SPECIMENOrdering Facility: [facility] Address: [address] [place] [address] Performed By: #### 5 8410-2 ####[facility] LABIA [id number] [address] [place] MCH (RBC) [Entitic mass] 32.4 pg Normal 26.0-34.[address] [facility] Comment on above: Order Comment: Speci men Type: BLOOD SPECIMENOrdering Facility: [facility] Address: [address] Performed By: #### 5 8410-2 ####[facility] LABIA [id number] [address] [place] MCHC (RBC) [Mass/Vol] 35.4 g/dL Normal 30.5-36.0 [facility] Comment on above: Order Comment: Speci men Type: BLOOD SPECIMENOrdering Facility: [facility] Address: [address] [place] [address] Performed By: #### 5 8410-2 ####[facility] LABIA [id number] [address] MCV (RBC) [Entitic vol] 91.5 fL Normal 80.0-100.0 [facility] Comment on above: Order Comment: Speci men Type: BLOOD SPECIMENOrdering Facility: [facility] Address: [address] Performed By: #### 5 8410-2 ####[facility] LABIA [id number] [address] [place] Nucleated RBC (Bld) [#/Vol] 10*3/uL Normal <0.01 [facility] [facility] Comment on above: Order Comment: Speci men Type: BLOOD SPECIMENOrdering Facility: [facility] Address: [address] [place], [place] [address] Performed By: #### 5 8410-2 ####[facility] [id number] [place] [address] [place] Platelet mean volume (Bld) [Entitic vol] 11.1 fL Normal 9.0-12.[address] [facility] Comment on above: Order Comment: Speci men Type: BLOOD SPECIMENOrdering Facility: [facility] Address: [address] [place], [place] [address] Performed By: #### 5 8410-2 ####[facility] [id number] [address] [place] Platelets (Bld) [#/Vol] 138 10*3/uL Low 150-[address] [facility] Comment on above: Order Comment: Speci men Type: BLOOD SPECIMENOrdering Facility: [facility] Address: [address] [place] [address] Result Comment: No c lot detected.Results checked and verified. Performed By: #### 5 8410-2 ####[facility] [id number] [place] [address] [place] RBC (Bld) [#/Vol] 2.81 10*6/uL Low 4.20-6.00 [facility] Comment on above: Order Comment: Speci men Type: BLOOD SPECIMENOrdering Facility: [facility] Address: [address] [place] [address] Performed By: #### 5 8410-2 ####[facility] [id number] [place] [address] [place] [facility] WBC (Bld) [#/Vol] 11.86 10*3/uL High 3.70-11.00 [facility] Comment on above: Order Comment: Speci men Type: BLOOD SPECIMENOrdering Facility: [facility] Address: [address] [place] [address] Performed By: #### 5 8410-2 ####[facility] [id number] [address] OF [facility] CNPNon 08-29-2022 CNPN Telephone (UROFAYE) -- OLAF BRIONES ([id number]) 1945 M Date Time Provider Department 08/29/22 [...] lipid microspheres 1.1 mg/mL 1.3 mL injection ([employer] Problem List As Of Date 08/29/2022 Noted Resolved Hematuria [R31.9] 08/27/2022 Coronary artery disease involving [place]*08/27/2022 Adverse reaction to antiplatelet agent [T45.7X5*08/27/2022 Myocardial infarction (HCC) [I21.9] 08/27/2022 Primary hypertension [I10] 08/27/2022 Type 2 diabetes mellitus without complication, *08/27/2022 Leukocytosis [D72.829] 08/27/2022 Malnutrition of mild degree (HCC) [E44.1] 08/29/2022 Encounter Status:Closed by DAVID ANDREWS on 08/29/22 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 Stent card from [employer] from 08/20/2022 DATA: Laboratory: Recent Labs 08/29/22 [...] (2000) and TURP (2006) who presented to [facility] (more content not included)... Normal [facility] Comprehensive metabolic 2000 panelon 08-29-2022 Albumin [Mass/Vol] 4.2 g/dL Normal 3.9-4.9 [facility] Comment on above: Order Comment: Speci men Type: BLOOD SPECIMENOrdering Facility: [facility] Address: [address] [place] [address] Performed By: #### 2 4323-8 ####[facility] [id number] [place] [address] [place] ALP [Catalytic activity/Vol] 116 U/L High 38-[address] [facility] Comment on above: Order Comment: Speci men Type: BLOOD SPECIMENOrdering Facility: [facility] Address: [address] [place] [address] Performed By: #### 2 4323-8 ####[facility] [id number] [place] [address] [place] ALT [Catalytic activity/Vol] 20 U/L Normal 10-[address] [facility] Comment on above: Order Comment: Speci men Type: BLOOD SPECIMENOrdering Facility: [facility] Address: [address] [address] Performed By: #### 2 4323-8 ####[facility] [id number] [place] [address] [place] Anion gap [Moles/Vol] 13 mmol/L Normal 9-18 [facility] Comment on above: Order Comment: Speci men Type: BLOOD SPECIMENOrdering Facility: [facility] Address: [address] [place] [address] Performed By: #### 2 4323-8 ####[facility] [id number] [place] [address] [place] AST [Catalytic activity/Vol] 19 U/L Normal 14-[address] [facility] Comment on above: Order Comment: Speci men Type: BLOOD SPECIMENOrdering Facility: [facility] Address: [address] [place] [address] Performed By: #### 2 4323-8 ####[facility] [id number] [place] [address] [place] Bilirubin [Mass/Vol] 0.4 mg/dL Normal 0.2-1.3 [facility] Comment on above: Order Comment: Speci men Type: BLOOD SPECIMENOrdering Facility: [facility] Address: [address] [place], [place] [address] Performed By: #### 2 4323-8 ####[facility] [id number] [place] [address] [place] Calcium [Mass/Vol] 9.4 mg/dL Normal 8.5-10.2 [facility] Comment on above: Order Comment: Speci men Type: BLOOD SPECIMENOrdering Facility: [facility] Address: [address] [place], [place] [address] Performed By: #### 2 4323-8 ####[facility] [id number] [place] [address] [place] Chloride [Moles/Vol] 102 mmol/L Normal 97-105 [facility] Comment on above: Order Comment: Speci men Type: BLOOD SPECIMENOrdering Facility: [facility] Address: [address] [address] Performed By: #### 2 4323-8 ####[facility] [id number] [place] [address] [place] CO2 [Moles/Vol] 25 mmol/L Normal 22-[address] [facility] Comment on above: Order Comment: Speci men Type: BLOOD SPECIMENOrdering Facility: [facility] Address: [address] [address] Performed By: #### 2 4323-8 ####[facility] [id number] [place] [address] [place] Creatinine [Mass/Vol] 0.86 mg/dL Normal 0.73-1.22 [facility] Comment on above: Order Comment: Speci men Type: BLOOD SPECIMENOrdering Facility: [facility] Address: [address] [place] [address] Performed By: #### 2 4323-8 ####[facility] [id number] [address] [place] ESTIMATED GLOMERULAR FILTRATION RATE 89 mL/min/1.73m??? Normal >=[address] [facility] Comment on above: Order Comment: Speci men Type: BLOOD SPECIMENOrdering Facility: [facility] Address: [address] [place] [address] Result Comment: Mariaelena mated Glomerular Filtration Rate [...] actual GFR. Performed By: #### 2 4323-8 ####[facility] [id number] [place] [address] [place] Glucose [Mass/Vol] 166 mg/dL High 74-99 [facility] Comment on above: Order Comment: Speci men Type: BLOOD SPECIMENOrdering Facility: [facility] Address: [address] [place] [address] Result Comment: The [place] Diabetes Association (ADA) provides guidance for cutoff [...] Standards of Medical Care in Diabetes 2016, [place] [employer]. Diabetes Care. 2016.39(Suppl 1). Performed By: #### 2 4323-8 ####[facility] [id number] [place] [address] [place] Potassium [Moles/Vol] 3.9 mmol/L Normal 3.7-5.1 [facility] Comment on above: Order Comment: Speci men Type: BLOOD SPECIMENOrdering Facility: [facility] Address: [address] [place] [address] Performed By: #### 2 4323-8 ####[facility] [id number] [place] [address] [place] Protein [Mass/Vol] 6.6 g/dL Normal 6.3-8.0 [facility] Comment on above: Order Comment: Speci men Type: BLOOD SPECIMENOrdering Facility: [facility] Address: [address] [place] [address] Performed By: #### 2 4323-8 ####[facility] [id number] [place] [address] [place] Sodium [Moles/Vol] 140 mmol/L Normal 136-144 [facility] Comment on above: Order Comment: Speci men Type: BLOOD SPECIMENOrdering Facility: [facility] Address: [address] Performed By: #### 2 4323-8 ####[facility] [id number] [place] [address] [place] Urea nitrogen [Mass/Vol] 21 mg/dL Normal 9-[address] [facility] Comment on above: Order Comment: Speci men Type: BLOOD SPECIMENOrdering Facility: [facility] Address: [address] Performed By: #### 2 4323-8 ####[facility] [id number] [place] [address] [place] Albumin [Mass/Vol] 3.6 g/dL Low 3.9-4.9 [facility] Comment on above: Order Comment: Speci men Type: BLOOD SPECIMENOrdering Facility: [facility] Address: [address] Performed By: #### 2 4323-8 ####[facility] [id number] [place] [address] [place] ALP [Catalytic activity/Vol] 96 U/L Normal 38-[address] [facility] Comment on above: Order Comment: Speci men Type: BLOOD SPECIMENOrdering Facility: [facility] Address: [address] Performed By: #### 2 4323-8 ####[facility] [id number] [place] [address] [place] ALT [Catalytic activity/Vol] 18 U/L Normal 10-[address] [facility] Comment on above: Order Comment: Speci men Type: BLOOD SPECIMENOrdering Facility: [facility] Address: [address] Performed By: #### 2 4323-8 ####[facility] [id number] [place] [address] [place] Anion gap [Moles/Vol] 10 mmol/L Normal 9-18 [facility] Comment on above: Order Comment: Speci men Type: BLOOD SPECIMENOrdering Facility: [facility] Address: [address] [place] [address] Performed By: #### 2 4323-8 ####[facility] [id number] [place] [address] [place] AST [Catalytic activity/Vol] 16 U/L Normal 14-[address] [facility] Comment on above: Order Comment: Speci men Type: BLOOD SPECIMENOrdering Facility: [facility] Address: [address] [place] [address] Performed By: #### 2 4323-8 ####[facility] [id number] [place] [address] [place] Bilirubin [Mass/Vol] 0.5 mg/dL Normal 0.2-1.3 [facility] Comment on above: Order Comment: Speci men Type: BLOOD SPECIMENOrdering Facility: [facility] Address: [address] [place] [address] Performed By: #### 2 4323-8 ####[facility] [id number] [place] [address] [place] Calcium [Mass/Vol] 8.7 mg/dL Normal 8.5-10.2 [facility] Comment on above: Order Comment: Speci men Type: BLOOD SPECIMENOrdering Facility: [facility] Address: [address] [place], [place] [address] Performed By: #### 2 4323-8 ####[facility] [id number] [place] [address] [place] Chloride [Moles/Vol] 105 mmol/L Normal 97-105 [facility] Comment on above: Order Comment: Speci men Type: BLOOD SPECIMENOrdering Facility: [facility] Address: [address] [address] Performed By: #### 2 4323-8 ####[facility] [id number] [address] [place] [facility] CO2 [Moles/Vol] 24 mmol/L Normal 22-[address] [facility] Comment on above: Order Comment: Speci men Type: BLOOD SPECIMENOrdering Facility: [facility] Address: [address] [address] Performed By: #### 2 4323-8 ####[facility] [id number] [address] Creatinine [Mass/Vol] 0.78 mg/dL Normal 0.73-1.22 [facility] Comment on above: Order Comment: Speci men Type: BLOOD SPECIMENOrdering Facility: [facility] Address: [address] [place] [address] Performed By: #### 2 4323-8 ####[facility] [id number] [address] ESTIMATED GLOMERULAR FILTRATION RATE 92 mL/min/1.73m??? Normal >=[address] [facility] Comment on above: Order Comment: Speci men Type: BLOOD SPECIMENOrdering Facility: [facility] Address: [address] [place] [address] Result Comment: Mariaelena mated Glomerular Filtration Rate [...] actual GFR. Performed By: #### 2 4323-8 ####[facility] [id number] [place] [id number] [address] [place] Glucose [Mass/Vol] 217 mg/dL High 74-99 [facility] Comment on above: Order Comment: Speci men Type: BLOOD SPECIMENOrdering Facility: [facility] Address: [address] [place] [address] Result Comment: The [place] Diabetes Association (ADA) provides guidance for cutoff [...] Standards of Medical Care in Diabetes 2016, [place] [employer]. Diabetes Care. 2016.39(Suppl 1). Performed By: #### 2 4323-8 ####[facility] [id number] [place] [address] [place] Potassium [Moles/Vol] 3.9 mmol/L Normal 3.7-5.1 [facility] Comment on above: Order Comment: Janiei men Type: BLOOD SPECIMENOrdering Facility: [facility] Address: [address] [place] [address] Performed By: #### 2 4323-8 ####[facility] [id number] [place] [address] [place] Protein [Mass/Vol] 5.6 g/dL Low 6.3-8.0 [facility] Comment on above: Order Comment: Speci men Type: BLOOD SPECIMENOrdering Facility: [facility] Address: [address] [place] [address] Performed By: #### 2 4323-8 ####[facility] [id number] [place] [address] [place] Sodium [Moles/Vol] 139 mmol/L Normal 136-144 [facility] Comment on above: Order Comment: Speci men Type: BLOOD SPECIMENOrdering Facility: [facility] Address: [address] [place], [place] [address] Performed By: #### 2 4323-8 ####[facility] [id number] [place] [address] [place] Urea nitrogen [Mass/Vol] 14 mg/dL Normal 9-[address] [facility] Comment on above: Order Comment: Speci men Type: BLOOD SPECIMENOrdering Facility: [facility] Address: [address] [address] Performed By: #### 2 4323-8 ####[facility] [id number] [place] [address] [place] Albumin [Mass/Vol] 3.6 g/dL Low 3.9-4.9 [facility] Comment on above: Order Comment: Speci men Type: BLOOD SPECIMENOrdering Facility: [facility] Address: [address] [place], [place] [address] Performed By: #### 2 777-1, 56606-1, 60033-8 ####[facility] [id number] [place] [address] [place] ALP [Catalytic activity/Vol] 98 U/L Normal 38-[address] [facility] Comment on above: Order Comment: Speci men Type: BLOOD SPECIMENOrdering Facility: [facility] Address: [address] Performed By: #### 2 777-1, 25055-7, 99635-5 ####[facility] [id number] [place] [address] [place] ALT [Catalytic activity/Vol] 19 U/L Normal 10-[address] [facility] Comment on above: Order Comment: Speci men Type: BLOOD SPECIMENOrdering Facility: [facility] Address: [address] Performed By: #### 2 777-1, 72347-9, ####[facility] [id number] [place] [address] [place] Anion gap [Moles/Vol] 12 mmol/L Normal 9-18 [facility] Comment on above: Order Comment: Speci men Type: BLOOD SPECIMENOrdering Facility: [facility] Address: [address] [address] Performed By: #### 2 777-1, 15496-8, ####[facility] [id number] [place] [address] [place] AST [Catalytic activity/Vol] 18 U/L Normal 14-[address] [facility] Comment on above: Order Comment: Speci men Type: BLOOD SPECIMENOrdering Facility: [facility] Address: [address] [place] [address] Performed By: #### 2 777-1, 55027-8, ####[facility] [id number] [place] [address] [place] Bilirubin [Mass/Vol] 0.7 mg/dL Normal 0.2-1.3 [facility] Comment on above: Order Comment: Speci men Type: BLOOD SPECIMENOrdering Facility: [facility] Address: [address] [place], [place] [address] Performed By: #### 2 777-1, 77252-1, ####[facility] [id number] [place] [address] [place] Calcium [Mass/Vol] 8.3 mg/dL Low 8.5-10.2 [facility] Comment on above: Order Comment: Speci men Type: BLOOD SPECIMENOrdering Facility: [facility] Address: [address] [place], [place] [address] Performed By: #### 2 777-1, 46758-8, ####[facility] [id number] [place] [id number] [place] Chloride [Moles/Vol] 102 mmol/L Normal 97-105 [facility] Comment on above: Order Comment: Speci men Type: BLOOD SPECIMENOrdering Facility: [facility] Address: [address] [id number] Performed By: #### 2 777-1, 20631-6, ####[facility] [id number] [place] [address] [place] CO2 [Moles/Vol] 22 mmol/L Normal 22-[address] [facility] Comment on above: Order Comment: Speci men Type: BLOOD SPECIMENOrdering Facility: [facility] Address: [address] [place], [place] [address] Performed By: #### 2 777-1, 92224-1, ####[facility] [id number] [place] [address] [place] Creatinine [Mass/Vol] 0.69 mg/dL Low 0.73-1.22 [facility] Comment on above: Order Comment: Speci men Type: BLOOD SPECIMENOrdering Facility: [facility] Address: [address] [place], [place] [address] Performed By: #### 2 777-1, 19555-3, ####[facility] [id number] [place] [id number] [place] ESTIMATED GLOMERULAR FILTRATION RATE 95 mL/min/1.73m??? Normal >=[address] [facility] Comment on above: Order Comment: Speci men Type: BLOOD SPECIMENOrdering Facility: [facility] Address: [address] [place] [address] Result Comment: Mariaelena mated Glomerular Filtration Rate [...] GFR. Performed By: #### 2 777-1, , ####[facility] [id number] [place] [address] [place] Glucose [Mass/Vol] 202 mg/dL High 74-99 [facility] Comment on above: Order Comment: Portia tay Type: BLOOD SPECIMENOrdering Facility: [facility] Address: [address] [address] Result Comment: The [place] Diabetes Association (ADA) provides guidance for cutoff [...] Standards of Medical Care in Diabetes 2016, [place] [employer]. Diabetes Care. 2016.39(Suppl 1). Performed By: #### 2 777-1, , ####[facility] [id number] [place] [address] [place] Potassium [Moles/Vol] 4.1 mmol/L Normal 3.7-5.1 [facility] Comment on above: Order Comment: Portia tay Type: BLOOD SPECIMENOrdering Facility: [facility] Address: [address] [id number] Performed By: #### 2 777-1, 34352-4, ####[facility] [id number] [place] [address] [place] Protein [Mass/Vol] 5.5 g/dL Low 6.3-8.0 [facility] Comment on above: Order Comment: Speci men Type: BLOOD SPECIMENOrdering Facility: [facility] Address: [address] [place] [address] Performed By: #### 2 777-1, 97010-9, ####[facility] [id number] [place] [address] [place] Sodium [Moles/Vol] 136 mmol/L Normal 136-144 [facility] Comment on above: Order Comment: Speci men Type: BLOOD SPECIMENOrdering Facility: [facility] Address: [address] [place] [address] Performed By: #### 2 777-1, 16145-1, ####[facility] [id number] [place] [address] [place] Urea nitrogen [Mass/Vol] 14 mg/dL Normal 9-[address] [facility] Comment on above: Order Comment: Speci men Type: BLOOD SPECIMENOrdering Facility: [facility] Address: [address] [place] [address] Performed By: #### 2 777-1, 89887-8, ####[facility] [id number] [place] [address] [place] Albumin [Mass/Vol] 3.0 g/dL Low 3.9-4.9 [facility] Comment on above: Order Comment: Speci men Type: BLOOD SPECIMENOrdering Facility: [facility] Address: [address] [place] [address] Result Comment: Resu lt rechecked. Performed By: #### 1 9123-9, 2777-1, 56421-1 ####[facility] [id number] [place] [address] [place] ALP [Catalytic activity/Vol] 88 U/L Normal 38-[address] [facility] Comment on above: Order Comment: Speci men Type: BLOOD SPECIMENOrdering Facility: [facility] Address: [address] [address] Performed By: #### 1 9123-9, 2777-1, 60452-8 ####[facility] [id number] [place] [address] [place] ALT [Catalytic activity/Vol] 15 U/L Normal 10-[address] [facility] Comment on above: Order Comment: Speci men Type: BLOOD SPECIMENOrdering Facility: [facility] Address: [address] [place] [address] Performed By: #### 1 9123-9, 27708-18, 27892-5 ####[facility] [id number] [place] [address] [place] Anion gap [Moles/Vol] 14 mmol/L Normal 9-18 [facility] Comment on above: Order Comment: Speci men Type: BLOOD SPECIMENOrdering Facility: [facility] Address: [address] [place] [address] Performed By: #### 1 9123-9, 27708-18, 03236-3 ####[facility] [id number] [place] [address] [place] AST [Catalytic activity/Vol] 16 U/L Normal 14-[address] [facility] Comment on above: Order Comment: Speci men Type: BLOOD SPECIMENOrdering Facility: [facility] Address: [address] [place] [address] Performed By: #### 1 9123-9, 277-, 25604-2 ####[facility] [id number] [place] [address] [place] Bilirubin [Mass/Vol] 0.6 mg/dL Normal 0.2-1.3 [facility] Comment on above: Order Comment: Speci men Type: BLOOD SPECIMENOrdering Facility: [facility] Address: [address] [place] [address] Performed By: #### 1 9123-9, 2776-02, ####[facility] [id number] [place] [address] [place] Calcium [Mass/Vol] 8.4 mg/dL Low 8.5-10.2 [facility] Comment on above: Order Comment: Speci men Type: BLOOD SPECIMENOrdering Facility: [facility] Address: [address] [place] [address] Performed By: #### 1 9123-9, 2776-02, ####[facility] [id number] [place] [address] [place] Chloride [Moles/Vol] 103 mmol/L Normal 97-105 [facility] Comment on above: Order Comment: Speci men Type: BLOOD SPECIMENOrdering Facility: [facility] Address: [address] Performed By: #### 1 9123-9, 2776-02, ####[facility] [id number] [place] [address] [place] CO2 [Moles/Vol] 20 mmol/L Low 22-[address] [facility] Comment on above: Order Comment: Speci men Type: BLOOD SPECIMENOrdering Facility: [facility] Address: [place] Performed By: #### 1 9123-9, 2776-02, ####[facility] LABCL[facility] [id number] [place] [id number] [place] Creatinine [Mass/Vol] 0.64 mg/dL Low 0.73-1.22 [facility] Comment on above: Order Comment: Portia tay Type: BLOOD SPECIMENOrdering Facility: [facility] Address: [address] [id number] Performed By: #### 1 9123-9, 2777-1, 48079-6 ####[facility] LABCL[facility] [id number] [place] [address] [place] ESTIMATED GLOMERULAR FILTRATION RATE 98 mL/min/1.73m??? Normal >=[address] [facility] Comment on above: Order Comment: Portia tay Type: BLOOD SPECIMENOrdering Facility: [facility] Address: [address] [address] Result Comment: Mariaelena mated Glomerular Filtration Rate [...] GFR. Performed By: #### 1 9123-9, 2777-, 46735-4 ####[facility] [id number] [place] [address] [place] Glucose [Mass/Vol] 186 mg/dL High 74-99 [facility] Comment on above: Order Comment: Portia tay Type: BLOOD SPECIMENOrdering Facility: [facility] Address: [address] Result Comment: The [place] Diabetes Association (ADA) provides guidance for cutoff [...] Standards of Medical Care in Diabetes 2016, [place] [employer]. Diabetes Care. 2016.39(Suppl 1). Performed By: #### 1 9123-9, 2777-, 18902-4 ####[facility] [id number] [address] [address] [place] Potassium [Moles/Vol] 4.0 mmol/L Normal 3.7-5.1 [facility] Comment on above: Order Comment: Speci men Type: BLOOD SPECIMENOrdering Facility: [facility] Address: [address] Performed By: #### 1 9123-9, 2777, 15197-9 ####[facility] LABIA [id number] [place] [address] [place] Protein [Mass/Vol] 5.1 g/dL Low 6.3-8.0 [facility] Comment on above: Order Comment: Speci men Type: BLOOD SPECIMENOrdering Facility: [facility] Address: [address] [address] Performed By: #### 1 9123-9, 2776-02, ####[facility] LABIA [id number] [place] [address] [place] Sodium [Moles/Vol] 137 mmol/L Normal 136-144 [facility] Comment on above: Order Comment: Speci men Type: BLOOD SPECIMENOrdering Facility: [facility] Address: [address] [place] [address] Performed By: #### 1 9123-9, 27708-18, 39584-8 ####[facility] LABIA [id number] [address] [address] [place] Urea nitrogen [Mass/Vol] 12 mg/dL Normal 9-[address] [facility] Comment on above: Order Comment: Speci men Type: BLOOD SPECIMENOrdering Facility: [facility] Address: [address] [place], [place] [address] Performed By: #### 1 9123-9, 2777-1, 87487-9 ####[facility] LABIA [id number] [place] [address] [place] ECG COMPLETEon 08-29-2022 ECG COMPLETE Ventricular Rate : 7 0 BPM Atrial Rate : 70 BPM P-R Interval : 186 ms QRS Duration : 102 ms Q-T Interval : 454 ms QTC Calculation(Bazett) : 490 ms Calculated P [place] : 44 degrees Calculated R [place] : -26 degrees Calculated T [place] : -27 degrees SINUS RHYTHM WITH PREMATURE ATRIAL COMPLEXES NONSPECIFIC ST ABNORMALITY ABNORMAL ECG Confirmed by ERICK STEWARD MD (65) on 08/31/2022 7:45:00 AM NAME : OLAF BRIONES PID : [id number] : 1945 Gender : Male Race : Unknown ORD : [id number] Procedure Date : Aug 29 2022 00:07:53 Edit Date : Aug 31 2022 07:45:03 Diagnosis: SINUS RHYTHM WITH PREMATURE ATRIAL COMPLEXES NONSPECIFIC ST ABNORMALITY ABNORMAL ECG Confirmed by ERICK STEWARD MD (65) on 08/31/2022 7:45:00 AM Test Reason : Post-OP Location : 154 : [facility] Overread By : ERICK STEWARD MD Edited By : ERICK STEWARD MD Referred By : , Acquired by : NAHOMI RINALDI [facility] Magnesium SerPl-mCncon 08-29 Magnesium [Mass/Vol] 2.1 mg/dL Normal 1.7-2.3 [facility] Comment on above: Order Comment: Speci men Type: BLOOD SPECIMENOrdering Facility: [facility] Address: [address] [place], [place] [address] Performed By: #### 2 777-1, 06890-2, 81119-5 ####[facility] LABIA [id number] [place] [address] [place] Magnesium [Mass/Vol] 1.8 mg/dL Normal 1.7-2.3 [facility] Comment on above: Order Comment: Speci men Type: BLOOD SPECIMENOrdering Facility: [facility] Address: [place] [place] [address] Performed By: #### 1 9123-9, 2777-1, 29593-7 ####[facility] LABCLIA [id number] [place] [address] [place] PT panel Coag (PPP)on 2022 INR Coag (PPP) [Relative time] 1.0 {INR} Normal 0.9-1.[address] [facility] Comment on above: Order Comment: Portia tay Type: BLOOD SPECIMENOrdering Facility: [facility] Address: [place] [place] [address] Result Comment: Mago min K Antagonist (VKA) Therapeutic Range: INR 2 to 3 (Target INR of 2.5) Note: For patients treated with VKA drugs, such as warfarin, the [place] [employer] 2012 Guideline recommends [...] Chest 2012, 141:7S-47S Daniel RA, et al. [facility] 2017, 70: 252-289 Performed By: #### 3 4528-0, 61398-8 ####[facility] LABIA [id number] [place] [address] [place] PT Coag (PPP) [Time] 10.7 s Normal 9.7-13.0 [facility] Comment on above: Order Comment: Portia tay Type: BLOOD SPECIMENOrdering Facility: [facility] Address: [place] [place] [address] Performed By: #### 3 4528-0, 50340-4 ####[facility]CL[facility] [id number] [address] STATES OF [facility] INR Coag (PPP) [Relative time] 1.1 {INR} Normal 0.9-1.[address] [facility] Comment on above: Order Comment: Speci men Type: BLOOD SPECIMENOrdering Facility: [facility] Address: [address] [place] [address] Result Comment: Mago min K Antagonist (VKA) Therapeutic Range: INR 2 to 3 (Target INR of 2.5) Note: For patients treated with VKA drugs, such as warfarin, the [place] [employer] 2012 Guideline recommends [...] Chest 2012, 141:7S-47S Daniel RA et al. [facility] 2017, 70: 252-289 Performed By: #### 3 4528-0, 65932-4 ####[facility]CLIA [id number] [place] [address] [place] PT Coag (PPP) [Time] 11.2 s Normal 9.7-13.0 [facility] Comment on above: Order Comment: Specherbie men Type: BLOOD SPECIMENOrdering Facility: [facility] Address: [address] [phone] Performed By: #### 3 4528-0, 66325-4 ####[facility]CL[facility] [id number] [address] [place] Phosphate SerPl-mCncon 08-29 Phosphate [Mass/Vol] 4.9 mg/dL High 2.7-4.8 [facility] Comment on above: Order Comment: Speci men Type: BLOOD SPECIMENOrdering Facility: [facility] Address: [address] [place], [place] [address] Performed By: #### 2 777-1, 51479-4, 49203-2 ####[facility]CL[facility] [id number] [address] OF [place] Phosphate [Mass/Vol] 4.2 mg/dL Normal 2.7-4.8 [facility] Comment on above: Order Comment: Speci men Type: BLOOD SPECIMENOrdering Facility: [facility] Address: [address] [place] [address] Performed By: #### 1 9123-9, 2777-1, 25995-4 ####[facility]CL[facility] [id number] [address] [place] THERAPY NTon 08-29-2022 THERAPY NT HNO ID: [id number] Author: Jenna Duggan, PT Service: Physical Therapy Author Type: Physical Therapist Type: Therapy (PT/OT/Speech/Resp) Filed: 08/29/2022 2:51 PM Note Text: Physical Therapy Evaluation SERVICE DATE: 08/29/2022 SERVICE TIME: 1403 to 1438 ROOM: [place] [address] Recommended Discharge Disposition: Home Anticipated Discharge Needs: [...] HLD, DM, recent STEMI (08/20/2022), transferred from [facility] for gross hematuria. Currently with 18Fr 3-way catheter on CBI. 08/28/22: s/p cystoscopy, clot evacuation, cystolitholapaxy, TURP. Admitted to SICU postoperatively due to pressor requirements and risk of hyponatremia due to length of TURP. 22Fr [address] hernandez placed introp, on traction and CBI. Reason for Hospital Admission: Pt 77y/o male transferred from [facility] for gross hematuria secondary to recent [...] General Deviations/Observations: Diana decreased, Flexed trunk posture [facility]: 7: Walk 25 feet or more [...] Reduced mobility-other Interventions Provided: Evaluation, Therapeutic Activity (87544), Gait Training (11841) $ Evaluation-Moderate (11953) Billed Units: 1 unit Therapeutic Activity (85078) Treatment Minutes: 7 $ Therapeutic Activity (98248) Billed Units: 0 units Gait Training (49424) Treatment Minutes: 13 $ Gait Training (93260) Billed Units: 1 unit Training AND Education Provided in: Benefits of In-Hospital Mobility, Bed Mobility, Energy Conservation, Equipment, Exer (more content not included)... Normal [facility] THERAPY NT HNO ID: [id number] Author: Alia Smith OTR/L Service: Occupational Therapy Author Type: Occupational Therapist Type: Therapy (PT/OT/Speech/Resp) Filed: 08/29/2022 11:06 AM Note Text: Occupational Therapy Evaluation SERVICE DATE: 08/29/2022 SERVICE TIME: 849 to 920 ROOM: [place] [address] Recommended Discharge Disposition: Home Anticipated Discharge Needs: [...] HLD, DM, recent STEMI (08/20/2022), transferred from [facility] for gross hematuria. Currently with 18Fr 3-way catheter on CBI. 08/28/22: s/p cystoscopy, clot evacuation, cystolitholapaxy, TURP. Admitted to SICU postoperatively due to pressor requirements and risk of hyponatremia due to length of TURP. 22Fr [address] hernandez placed introp, on traction and CBI. 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 Normal [facility] aPTT PPPon 08-29-2022 aPTT Coag (PPP) [Time] 21.0 s Low 23.0-32.4 [facility] Comment on above: Order Comment: Speci men Type: BLOOD SPECIMENOrdering Facility: [facility] Address: [address] [phone] Performed By: #### 3 4528-0, 75335-2 ####[facility] LABCLIA [id number] [address] aPTT Coag (PPP) [Time] 26.1 s Normal 23.0-32.4 [facility] Comment on above: Order Comment: Speci men Type: BLOOD SPECIMENOrdering Facility: [facility] Address: [address] [address] Performed By: #### 3 4528-0, 25018-3 ####[facility] LABCLIA [id number] [place] [address] [place] ANES POSTPROC EVALon 023 ANES POSTPROC EVAL HNO ID: [id number] Author: Michelle Day MD Service: ? Author Type: Anesthesiologist Type: Anesthesia Postprocedure Evaluation Filed: 08/28/2022 8:38 PM Note Text: POST ANESTHESIA EVALUATION NOTE : 1945 Procedure Summary Date: 08/28/22 [address] Anesthesia Start: 1752 Anesthesia Stop: 2030 [...] August 28, 2022 TIME: 8:37 PM CSN: [id number] Normal [facility] ANES PRE-OPon 08-28-2022 ANES PRE-OP HNO ID: [id number] Author: Weston Avila MD Service: ? Author Type: Anesthesiologist Type: Anesthesia Preprocedure Evaluation Filed: 08/28/2022 6:10 PM Note Text: ANESTHESIOLOGY DAY OF SURGERY NOTE : 1945 Procedure Information Anesthesia Start Date/Time: 08/28/221752 Procedure: CYSTOURETHROSCOPY FULGURATION BLADDER (Bladder) Location: [facility] Surgeons: David Andrews MD Estimated body mass index is 25.23 kg/m? as calculated from the following: Height as of this encounter: 173 cm (5' 8.11 ). Weight as of this encounter: 75.5 kg (166 lb 7.2 oz). Most recent hematocrit and potassium results: Hematocrit 32.6 08/28/2022 Potassium 4.0 08/28/2022 Relevant Problems CARDIO (+) Coronary artery disease involving [place] coronary artery of [place] heart without angina pectoris (+) Myocardial infarction [...] and consent discussed: yes. Patient / Responsible Democrat agrees to proceed: yes Patient / Surrogate [...] (more content not included)... Normal [facility] ANES PREOPon 08-28-2022 ANES PREOP HNO ID: [id number] Author: Jaycee Bernard MD Service: Anesthesiology Author [...] (166 lb 7.2 oz) REVIEW OF SYSTEMS: COLLECTION MANAGER: no history of COLLECTION MANAGER disease RESP: no history of pulmonary disease, no smoking history CARD: history of HTN on norvasc and coreg; and history of past MA s/p JUHI (08/20/22); currently no chest pain [...] (more content not included)... Normal [facility] BRIEF OP NOTon 08-28-2022 BRIEF OP NOT HNO ID: [id number] Author: Gt Mcgowan MD Service: Urology Author Type: Resident Type: Brief Op Note Filed: 08/28/2022 7:50 PM Note Text: BRIEF OP NOTE LOG ID: [id number] Surgery/Procedure Date: 08/28/2022 Incision/Procedure Start Time: 6:17 PM Incision Close/Procedure End Time: Surgeon(s)/Proceduralist(s ) and Steward/Stewardess Economy Class(s): Surgeon(s) and Role: * David Andrews MD [...] clot retention Post-Op/Post-Procedure Diagnosis: same SIGNATURE: Gt Mcogwan MD PATIENT NAME: Olaf Briones DATE: August 28, 2022 TIME: 7:48 PM PAGER/CONTACT #: p [phone] Post-op Plan: To SICU Normal [facility] Basic metabolic 2000 panelon 08-28-2022 Anion gap [Moles/Vol] 9 mmol/L Normal 9-18 [facility] Comment on above: Order Comment: Speci men Type: BLOOD SPECIMENOrdering Facility: [facility] Address: [address] [place] [address] Performed By: #### 2 4321-2 ####[facility] [id number] [place] [address] [place] Calcium [Mass/Vol] 8.8 mg/dL Normal 8.5-10.2 [facility] Comment on above: Order Comment: Speci men Type: BLOOD SPECIMENOrdering Facility: [facility] Address: [address] [address] Performed By: #### 2 4321-2 ####[facility] LABIA [id number] [place] [address] [place] Chloride [Moles/Vol] 108 mmol/L High 97-105 [facility] Comment on above: Order Comment: Speci men Type: BLOOD SPECIMENOrdering Facility: [facility] Address: [address] [address] Performed By: #### 2 4321-2 ####[facility] LABCLIA [id number] [place] [address] [place] CO2 [Moles/Vol] 24 mmol/L Normal 22-[address] [facility] Comment on above: Order Comment: Speci men Type: BLOOD SPECIMENOrdering Facility: [facility] Address: [address] [address] Performed By: #### 2 4321-2 ####[facility] LABIA [id number] [place] [address] [place] Creatinine [Mass/Vol] 0.79 mg/dL Normal 0.73-1.22 [facility] Comment on above: Order Comment: Speci men Type: BLOOD SPECIMENOrdering Facility: [facility] Address: [address] [place] [address] Performed By: #### 2 4321-2 ####[facility] LABIA [id number] [place] [address] [place] ESTIMATED GLOMERULAR FILTRATION RATE 91 mL/min/1.73m??? Normal >=[address] [facility] Comment on above: Order Comment: Speci men Type: BLOOD SPECIMENOrdering Facility: [facility] Address: [address] [place] [address] Result Comment: Mariaelena mated Glomerular Filtration Rate [...] actual GFR. Performed By: #### 2 4321-2 ####[facility] LABCLIA [id number] [place] [address] [place] Glucose [Mass/Vol] 137 mg/dL High 74-99 [facility] Comment on above: Order Comment: Speci men Type: BLOOD SPECIMENOrdering Facility: [facility] Address: [address] [place] [address] Result Comment: The [place] Diabetes Association (ADA) provides guidance for cutoff [...] Standards of Medical Care in Diabetes 2016, [place] [employer]. Diabetes Care. 2016.39(Suppl 1). Performed By: #### 2 4321-2 ####[facility]CL[facility] [id number] [place] [address] [place] Potassium [Moles/Vol] 4.0 mmol/L Normal 3.7-5.1 [facility] Comment on above: Order Comment: Speci men Type: BLOOD SPECIMENOrdering Facility: [facility] Address: [address] [place] [address] Performed By: #### 2 4321-2 ####[facility]CL[facility] [id number] [place] [address] [place] Sodium [Moles/Vol] 141 mmol/L Normal 136-144 [facility] Comment on above: Order Comment: Speci men Type: BLOOD SPECIMENOrdering Facility: [facility] Address: [address] [place] [address] Performed By: #### 2 4321-2 ####[facility]CL[facility] [id number] [place] [address] [place] Urea nitrogen [Mass/Vol] 18 mg/dL Normal 9-[address] [facility] Comment on above: Order Comment: Speci men Type: BLOOD SPECIMENOrdering Facility: [facility] Address: [address] [place] [address] Performed By: #### 2 4321-2 ####[facility] LABIA [id number] [address] [place] CALCULI ANALYSISon 3 Calculus analysis [Interp] Normal [facility] Comment on above: Order Comment: Speci men Type: CALCULUS SPECIMENOrdering Facility: [facility] Address: [address] [place] [address] Result Comment: This test was developed and its performance characteristics determined by [facility]'s [facility] [place] ([facility] It has not been cleared or approved by the FDA. -[facility] is regulated under CLIA as qualified to perform high-complexity testing. This test is used for clinical purposes. It should not be regarded as investigational or for research. Performed By: #### C SA ####[facility] LABIA [id number] [address] [place] CALCULUS COLOR BROWN Normal [facility] Comment on above: Order Comment: Speci men Type: CALCULUS SPECIMENOrdering Facility: [facility] Address: [address] [place] [address] Performed By: #### C SA ####[facility]IA [id number] [address] [place] CALCULUS COMPOSITION 1 50% Calcium Oxala te Monohydrate Normal [facility] Comment on above: Order Comment: Speci men Type: CALCULUS SPECIMENOrdering Facility: [facility] Address: [address] [place] [address] Performed By: #### C SA ####[facility]IA [id number] [address] [place] CALCULUS COMPOSITION 2 40% Calcium Oxala te Dihydrate Normal [facility] Comment on above: Order Comment: Speci men Type: CALCULUS SPECIMENOrdering Facility: [facility] Address: [address] [place] [address] Performed By: #### C SA ####[facility]IA [id number] [address] CALCULUS COMPOSITION 3 10% Minor Components Normal [facility] Comment on above: Order Comment: Speci men Type: CALCULUS SPECIMENOrdering Facility: [facility] Address: [address] [place] [address] Performed By: #### C SA ####[facility] LABIA [id number] [address] STATES OF [place] CALCULUS SIZE AND WT 0.4 X 0.3 X 0.1 CM 0.0163 GRAMS Normal [facility] Comment on above: Order Comment: Speci men Type: CALCULUS SPECIMENOrdering Facility: [facility] Address: [address] [place] [address] Performed By: #### C SA ####[facility]IA [id number] [address] STATES OF [place] CALCULUS TYPE Calculus, CALCULI/CALCULUS Normal [facility] Comment on above: Order Comment: Speci men Type: CALCULUS SPECIMENOrdering Facility: [facility] Address: [address] [place] [address] Performed By: #### C SA ####[facility]IA [id number] [address] STATES OF [place] CBC panel Auto (Bld)on 08-28 Erythrocyte distribution width (RBC) [Ratio] 12.7 % Normal 11.5-15.[address] [facility] Comment on above: Order Comment: Speci men Type: BLOOD SPECIMENOrdering Facility: [facility] Address: [address] [place] [address] Performed By: #### 5 8410-2 ####[facility] [id number] [place] [address] [place] Hematocrit (Bld) [Volume fraction] 35.7 % Low 39.0-51.[address] [facility] Comment on above: Order Comment: Speci men Type: BLOOD SPECIMENOrdering Facility: [facility] Address: [address] [place] [address] Performed By: #### 5 8410-2 ####[facility]IA [id number] [place] [address] [place] Hemoglobin (Bld) [Mass/Vol] 12.1 g/dL Low 13.0-17.[address] [facility] Comment on above: Order Comment: Speci men Type: BLOOD SPECIMENOrdering Facility: [facility] Address: [address] [place] [address] Performed By: #### 5 8410-2 ####[facility]IA [id number] [address] STATES OF [facility] MCH (RBC) [Entitic mass] 31.8 pg Normal 26.0-34.[address] [facility] Comment on above: Order Comment: Speci men Type: BLOOD SPECIMENOrdering Facility: [facility] Address: [address] [place] [address] Performed By: #### 5 8410-2 ####[facility] [id number] [place] [address] [place] MCHC (RBC) [Mass/Vol] 33.9 g/dL Normal 30.5-36.0 [facility] Comment on above: Order Comment: Speci men Type: BLOOD SPECIMENOrdering Facility: [facility] Address: [address] [place] [address] Performed By: #### 5 8410-2 ####[facility]IA [id number] [place] [address] [place] MCV (RBC) [Entitic vol] 93.7 fL Normal 80.0-100.0 [facility] Comment on above: Order Comment: Speci men Type: BLOOD SPECIMENOrdering Facility: [facility] Address: [address] [place], [place] [address] Performed By: #### 5 8410-2 ####[facility] [id number] [place] [address] [place] Nucleated RBC (Bld) [#/Vol] 10*3/uL Normal <0.[address] [facility] Comment on above: Order Comment: Speci men Type: BLOOD SPECIMENOrdering Facility: [facility] Address: [address] [place], [place] [address] Performed By: #### 5 8410-2 ####[facility] [id number] [place] [address] [place] Platelet mean volume (Bld) [Entitic vol] 11.3 fL Normal 9.0-12.[address] [facility] Comment on above: Order Comment: Speci men Type: BLOOD SPECIMENOrdering Facility: [facility] Address: [address] [place], [place] [address] Performed By: #### 5 8410-2 ####[facility] [id number] [place] [address] [place] Platelets (Bld) [#/Vol] 179 10*3/uL Normal 150-[address] [facility] Comment on above: Order Comment: Speci men Type: BLOOD SPECIMENOrdering Facility: [facility] Address: [address] [place] [address] Performed By: #### 5 8410-2 ####[facility] [id number] [place] [address] [place] RBC (Bld) [#/Vol] 3.81 10*6/uL Low 4.20-6.00 [facility] Comment on above: Order Comment: Speci men Type: BLOOD SPECIMENOrdering Facility: [facility] Address: [address] Performed By: #### 5 8410-2 ####[facility] LABCLIA [id number] [place] [address] [place] WBC (Bld) [#/Vol] 16.02 10*3/uL High 3.70-11.00 [facility] Comment on above: Order Comment: Speci men Type: BLOOD SPECIMENOrdering Facility: [facility] Address: [address] [place], [place] [address] Performed By: #### 5 8410-2 ####[facility] LABCLIA [id number] [place] [address] [place] Erythrocyte distribution width (RBC) [Ratio] 12.8 % Normal 11.5-15.[address] [facility] Comment on above: Order Comment: Speci men Type: BLOOD SPECIMENOrdering Facility: [facility] Address: [address] [place], [place] [address] Performed By: #### 5 8410-2 ####[facility] LABCLIA [id number] [place] [address] [place] Hematocrit (Bld) [Volume fraction] 32.6 % Low 39.0-51.[address] [facility] Comment on above: Order Comment: Speci men Type: BLOOD SPECIMENOrdering Facility: [facility] Address: [address] [place], [place] [address] Performed By: #### 5 8410-2 ####[facility] LABCLIA [id number] [place] [address] [place] Hemoglobin (Bld) [Mass/Vol] 11.1 g/dL Low 13.0-17.[address] [facility] Comment on above: Order Comment: Speci men Type: BLOOD SPECIMENOrdering Facility: [facility] Address: [address] [place], [place] [address] Performed By: #### 5 8410-2 ####[facility] LABCLIA [id number] [address] [place] MCH (RBC) [Entitic mass] 31.6 pg Normal 26.0-34.[address] [facility] Comment on above: Order Comment: Speci men Type: BLOOD SPECIMENOrdering Facility: [facility] Address: [address] [place] [address] Performed By: #### 5 8410-2 ####[facility] [id number] [address] STATES OF [facility] MCHC (RBC) [Mass/Vol] 34.0 g/dL Normal 30.5-36.0 [facility] Comment on above: Order Comment: Speci men Type: BLOOD SPECIMENOrdering Facility: [facility] Address: [address] [place] [address] Performed By: #### 5 8410-2 ####[facility] [id number] [address] [place] MCV (RBC) [Entitic vol] 92.9 fL Normal 80.0-100.0 [facility] Comment on above: Order Comment: Speci men Type: BLOOD SPECIMENOrdering Facility: [facility] Address: [address] [place] [address] Performed By: #### 5 8410-2 ####[facility] [id number] [address] STATES OF [facility] Nucleated RBC (Bld) [#/Vol] 10*3/uL Normal <0.[address] [facility] Comment on above: Order Comment: Speci men Type: BLOOD SPECIMENOrdering Facility: [facility] Address: [address] [place] [address] Performed By: #### 5 8410-2 ####[facility] [id number] [address] [place] Platelet mean volume (Bld) [Entitic vol] 11.2 fL Normal 9.0-12.[address] [facility] Comment on above: Order Comment: Speci men Type: BLOOD SPECIMENOrdering Facility: [facility] Address: [address] [place] [address] Performed By: #### 5 8410-2 ####[facility] LABCLIA [id number] [place] [address] [place] Platelets (Bld) [#/Vol] 172 10*3/uL Normal 150-[address] [facility] Comment on above: Order Comment: Speci men Type: BLOOD SPECIMENOrdering Facility: [facility] Address: [address] [place] [address] Performed By: #### 5 8410-2 ####[facility] LABIA [id number] [place] [address] [place] RBC (Bld) [#/Vol] 3.51 10*6/uL Low 4.20-6.00 [facility] Comment on above: Order Comment: Speci men Type: BLOOD SPECIMENOrdering Facility: [facility] Address: [address] [place] [address] Performed By: #### 5 8410-2 ####[facility] LABIA [id number] [place] [address] [place] WBC (Bld) [#/Vol] 11.53 10*3/uL High 3.70-11.00 [facility] Comment on above: Order Comment: Speci men Type: BLOOD SPECIMENOrdering Facility: [facility] Address: [address] [place], [place] [address] Performed By: #### 5 8410-2 ####[facility] LABCLIA [id number] [address] OF [facility] CONSULT PROGon 08-28-2022 CONSULT PROG HNO ID: [id number] Author: Uzma Bates MD Service: Cardiovascular Medicine [...] 08/28/2022 1045 Gross per 24 hour Intake 30218.5 ml Output 08861 ml Net -23879.5 ml TELEMETRY: DATA: Laboratory: Recent Labs 08/28/22 [...] (2000) and TURP (2006) who presented to [facility] ED 08/26/22 for development of gross hematuria with lower pelvic pain x2 days. He was found to have elevated WBC with + UA, and started on IV atbx. He was transferred to [facility] 08/27 for further management. He was continued [...] RCRI score is 1 for hx of MA, making him a class II risk. This equates to a 6.0% 30-day risk of , MA, or cardiac arrest. Pt denies any cardiac complaints. Per Dr. Bates, no absolute contraindication to proceeding with urologic p (more content not included)... Normal [facility] Comprehensive metabolic 2000 panelon 08-28-2022 Albumin [Mass/Vol] 4.1 g/dL Normal 3.9-4.9 [facility] Comment on above: Order Comment: Portia tay Type: BLOOD SPECIMENOrdering Facility: [facility] Address: [address] [place] [address] Performed By: #### 1 9123-9, 53667-0, 2777-1 ####[facility] LABCLIA [id number] [place] [address] [place] ALP [Catalytic activity/Vol] 119 U/L High 38-[address] [facility] Comment on above: Order Comment: Janiei men Type: BLOOD SPECIMENOrdering Facility: [facility] Address: [address] [place] [address] Performed By: #### 1 9123-9, 07369-5, 2777- ####[facility] LABCLIA [id number] [place] [address] [place] ALT [Catalytic activity/Vol] 23 U/L Normal 10-[address] [facility] Comment on above: Order Comment: Speci men Type: BLOOD SPECIMENOrdering Facility: [facility] Address: [address] [address] Performed By: #### 1 9123-9, 43347-4, 2777- ####[facility] LABIA [id number] [place] [address] [place] Anion gap [Moles/Vol] 10 mmol/L Normal 9-18 [facility] Comment on above: Order Comment: Speci men Type: BLOOD SPECIMENOrdering Facility: [facility] Address: [address] [place] [address] Performed By: #### 1 9123-9, 88242-3, 277- ####[facility] LABIA [id number] [place] [address] [place] AST [Catalytic activity/Vol] 21 U/L Normal 14-[address] [facility] Comment on above: Order Comment: Speci men Type: BLOOD SPECIMENOrdering Facility: [facility] Address: [address] [place] [address] Performed By: #### 1 9123-9, 83862-6, 2777- ####[facility] LABIA [id number] [place] [address] [place] Bilirubin [Mass/Vol] 1.1 mg/dL Normal 0.2-1.3 [facility] Comment on above: Order Comment: Speci men Type: BLOOD SPECIMENOrdering Facility: [facility] Address: [address] [place], [place] [address] Performed By: #### 1 9123-9, 05020-8, 2776-02 ####[facility] LABCLIA [id number] [place] [address] [place] Calcium [Mass/Vol] 9.1 mg/dL Normal 8.5-10.2 [facility] Comment on above: Order Comment: Speci men Type: BLOOD SPECIMENOrdering Facility: [facility] Address: [address] [place] [address] Performed By: #### 1 9123-9, 30901-9, 2776-02 ####[facility] LABCLIA [id number] [place] [address] [place] Chloride [Moles/Vol] 105 mmol/L Normal 97-105 [facility] Comment on above: Order Comment: Speci men Type: BLOOD SPECIMENOrdering Facility: [facility] Address: [address] [place] [address] Performed By: #### 1 9123-9, , 2776-02 ####[facility] LABCLIA [id number] [place] [address] [place] CO2 [Moles/Vol] 24 mmol/L Normal 22-[address] [facility] Comment on above: Order Comment: Speci men Type: BLOOD SPECIMENOrdering Facility: [facility] Address: [address] Performed By: #### 1 9123-9, 58554-0, 2776-02 ####[facility] LABCLIA [id number] [place] [address] [place] Creatinine [Mass/Vol] 0.76 mg/dL Normal 0.73-1.22 [facility] Comment on above: Order Comment: Speci men Type: BLOOD SPECIMENOrdering Facility: [facility] Address: [address] Performed By: #### 1 9123-9, 55824-6, 2776-02 ####[facility] LABCLIA [id number] [place] [address] [place] ESTIMATED GLOMERULAR FILTRATION RATE 93 mL/min/1.73m??? Normal >=[address] [facility] Comment on above: Order Comment: Portia tay Type: BLOOD SPECIMENOrdering Facility: [facility] Address: [address] [address] Result Comment: Mariaelena mated Glomerular Filtration Rate [...] actual GFR. Performed By: #### 1 9123-9, 72630-2, 2776-02 ####[facility] LABIA [id number] [place] [address] [place] Glucose [Mass/Vol] 147 mg/dL High 74-99 [facility] Comment on above: Order Comment: Portia tay Type: BLOOD SPECIMENOrdering Facility: [facility] Address: [address] [place] [address] Result Comment: The [place] [employer] (ADA) provides guidance for cutoff [...] Standards of Medical Care in Diabetes 2016, [place] [employer]. Diabetes Care. 2016.39(Suppl 1). Performed By: #### 1 9123-9, 96172-3, 2776-02 ####[facility] LABCLIA [id number] [place] [address] [place] Potassium [Moles/Vol] 4.2 mmol/L Normal 3.7-5.1 [facility] Comment on above: Order Comment: Speci men Type: BLOOD SPECIMENOrdering Facility: [facility] Address: [address] [place] [address] Performed By: #### 1 9123-9, 07442-2, 277- ####[facility] LABCLIA [id number] [place] [address] [place] Protein [Mass/Vol] 6.6 g/dL Normal 6.3-8.0 [facility] Comment on above: Order Comment: Speci men Type: BLOOD SPECIMENOrdering Facility: [facility] Address: [address] [place] [address] Performed By: #### 1 9123-9, 55881-7, 277- ####[facility] LABCLIA [id number] [place] [address] [place] Sodium [Moles/Vol] 139 mmol/L Normal 136-144 [facility] Comment on above: Order Comment: Speci men Type: BLOOD SPECIMENOrdering Facility: [facility] Address: [address] [place], [place] [address] Performed By: #### 1 9123-9, 32278-9, 277- ####[facility] LABCLIA [id number] [place] [address] [place] Urea nitrogen [Mass/Vol] 14 mg/dL Normal 9-[address] [facility] Comment on above: Order Comment: Speci men Type: BLOOD SPECIMENOrdering Facility: [facility] Address: [address] [place], [place] [address] Performed By: #### 1 9123-9, 82796-8, 2777- ####[facility] LABCLIA [id number] [place] [address] [place] ECHOon 08-28-2022 Echocardiography Echocardiography Rep ort: Transthoracic Echo [facility] Bedside Date of service: 08/28/2022 9:45:03 AM DATABASE ARCHITECT Ordering physician: DAVID ANDREWS Indication: Evaluation of [...] * * Final * * * CC [employer] : [id number] Normal [facility] HISTORY PHYSICALon 3 HISTORY PHYSICAL HNO ID: [id number] Author: Earnest Portillo MD Service: Critical Care Author Type: Physician Type: HANDP Filed: 08/28/2022 10:48 PM Note Text: SERVICE DATE: 08/28/2022 SERVICE TIME: 9:49 PM SICU HANDP NOTE HPI: Olaf Briones is a 77 year old male with PMHx of recent STEMI on 08/20/22 (s/p JUHI),HTN, HLD, DM, nephrolithiasis, transferred from [facility] for gross hematuria. 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 Normal [facility] Magnesium SerPl-mCncon 08-28 Magnesium [Mass/Vol] 2.1 mg/dL Normal 1.7-2.3 [facility] Comment on above: Order Comment: Speci men Type: BLOOD SPECIMENOrdering Facility: [facility] Address: [address] [place] [address] Performed By: #### 1 9123-9, 14843-7, 2777-1 ####[facility] LABCLIA [id number] [address] [place] OPERATIVE NOon 08-28-2022 OPERATIVE NO HNO ID: [id number] Author: David Andrews MD Service: Urology Author Type: Physician Type: Operative Report Filed: 08/28/2022 8:20 PM Note Text: OPERATIVE/PROCEDURE REPORT LOG ID: [id number] Surgery/Procedure Date: 08/28/2022 Incision/Procedure Start Time: 6:17 PM Incision Close/Procedure End Time: 7:50 PM Surgeon(s)/Proceduralist(s ) and Steward/Stewardess Economy Class(s): Surgeon(s) and Role: * David Andrews MD [...] with modest success. We then used the dot429 evacuator to clear out the remaining clot. 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 Normal [facility] Phosphate SerPl-mCncon 08-28 Phosphate [Mass/Vol] 2.9 mg/dL Normal 2.7-4.8 [facility] Comment on above: Order Comment: Speci men Type: BLOOD SPECIMENOrdering Facility: [facility] Address: [address] [place] [address] [place] [address] Performed By: #### 1 9123-9, 22763-4, 2777-1 ####[facility] LABIA [id number] [address] OF [facility] SURGICAL PATHOLOGYon 023 CASE REPORT Normal [facility] Comment on above: Order Comment: Speci men Type: TISSUE SPECIMENOrdering Facility: [facility] Address: [address] [place] [address] Result Comment: Surg [facility] Pathology Report Case: [id number] Authorizing Provider: David Andrews MD Collected: 08/28/2022 06:54 PM Ordering Location: Admitting Received: 08/29/2022 07:58 AM Pathologist: Gal Poon MD Specimens: A) - PROSTATE TISSUE (CHIPS) B) - PROSTATE TISSUE (CHIPS), #2 Performed By: #### S ####[facility] [id number] [address] CLINICAL HISTORY Normal [facility] Comment on above: Order Comment: Speci men Type: TISSUE SPECIMENOrdering Facility: [facility] Address: [address] [place] [address] Result Comment: Pre- op diagnosis: Hematuria [R31.9] Performed By: #### S ####[facility] [id number] [address] FINAL DIAGNOSIS Normal [facility] Comment on above: Order Comment: Speci men Type: TISSUE SPECIMENOrdering Facility: [facility] Address: [address] [place] [address] Result Comment: A. P rostate, transurethral resection: - Benign prostatic hyperplasia. A. 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 Performed By: #### S ####[facility] LABIA [id number] [place] [address] [place] FINAL PERFORMING LAB Normal [facility] Comment on above: Order Comment: Speci men Type: TISSUE SPECIMENOrdering Facility: [facility] Address: [address] [address] Result Comment: Diag nostic interpretation performed at [facility], [facility] [place] [address] CLIA# [id number] Photocopying Equipment Repairer: Jacob Urias M.D. Performed By: #### S ####[facility] LABCLIA [id number] [address] STATES OF [facility] GROSS DESCRIPTION Normal [facility] Comment on above: Order Comment: Speci men Type: TISSUE SPECIMENOrdering Facility: [facility] Address: [address] [address] Result Comment: A. P ROSTATE TISSUE (CHIPS) [...] in cassette B1. Gross examination performed at [facility], [address] 08/29/2022 2:10 PM Performed By: #### S ####[facility] LABCLIA [id number] [place] [address] [place] VENOUS BLOOD GASES WITH IONI ZED MAGNESIUMon 08-28-2022 BASE DEFICIT, VENOUS -1 mmol/L Normal -2-0 [facility] Comment on above: Order Comment: Speci men Type: VENOUS BLOOD SPECIMENOrdering Facility: [facility] Address: [address] Performed By: #### V ALLMG ####[facility] LABCLIA [id number] [place] [address] [place] Calcium.ionized (Bld) [Mass/Vol] 1.19 mmol/L Normal 1.08-1.[address] [facility] Comment on above: Order Comment: Speci men Type: VENOUS BLOOD SPECIMENOrdering Facility: [facility] Address: [address] [place] [address] Performed By: #### V ALLMG ####[facility] LABCLIA [id number] [place] [address] [place] Calcium.ionized adjusted to pH 7.4 (BldA) [Moles/Vol] 1.18 mmol/L Normal 1.08-1.[address] [facility] Comment on above: Order Comment: Speci men Type: VENOUS BLOOD SPECIMENOrdering Facility: [facility] Address: [address] [place] [address] Performed By: #### V ALLMG ####[facility] LABCLIA [id number] [place] [address] [place] Carboxyhemoglobin (BldV) [Mass fraction] 1.9 % Normal 0.0-2.[address] [facility] Comment on above: Order Comment: Speci men Type: VENOUS BLOOD SPECIMENOrdering Facility: [facility] Address: [address] [place] [address] Result Comment: Carb oxyhemoglobin Reference Range for Smokers: 2.0-8.0% Performed By: #### V ALLMG ####[facility] LABIA [id number] [place] [address] [place] CO2 (BldV) [Partial pressure] 40 mm[Hg] Low 42-[address] [facility] Comment on above: Order Comment: Speci men Type: VENOUS BLOOD SPECIMENOrdering Facility: [facility] Address: [address] [place] [address] Performed By: #### V ALLMG ####[facility] LABCLIA [id number] [place] [address] [place] CO2 [Moles/Vol] 25 mmol/L Normal 25-[address] [facility] Comment on above: Order Comment: Speci men Type: VENOUS BLOOD SPECIMENOrdering Facility: [facility] Address: [address] [place] [address] Performed By: #### V ALLMG ####[facility] LABCLIA [id number] [place] [address] [place] CO2 adjusted to patient's actual temperature (BldV) [Partial pressure] 40 mmHg Low 42-[address] [facility] Comment on above: Order Comment: Speci men Type: VENOUS BLOOD SPECIMENOrdering Facility: [facility] Address: [address] [place] [address] Performed By: #### V ALLMG ####[facility] LABCLIA [id number] [place] [address] [place] Glucose [Mass/Vol] 120 mg/dL High 60-105 [facility] Comment on above: Order Comment: Speci men Type: VENOUS BLOOD SPECIMENOrdering Facility: [facility] Address: [address] [place] [address] Performed By: #### V ALLMG ####[facility] LABCLIA [id number] [place] [address] [place] HCO3 (Bld) [Moles/Vol] 24 mmol/L Normal 24-28 [facility] Comment on above: Order Comment: Speci men Type: VENOUS BLOOD SPECIMENOrdering Facility: [facility] Address: [address] [place], [place] [address] Performed By: #### V ALLMG ####[facility] LABCLIA [id number] [place] [address] [place] Hematocrit (Bld) [Volume fraction] 37.2 % Low 39.0-51.[address] [facility] Comment on above: Order Comment: Speci men Type: VENOUS BLOOD SPECIMENOrdering Facility: [facility] Address: [address] [address] Performed By: #### V ALLMG ####[facility] LABIA [id number] [place] [address] [place] Hemoglobin (Bld) [Mass/Vol] 12.1 g/dL Low 13.0-17.[address] [facility] Comment on above: Order Comment: Speci men Type: VENOUS BLOOD SPECIMENOrdering Facility: [facility] Address: [address] [place] [address] Performed By: #### V ALLMG ####[facility] LABIA [id number] [place] [address] [place] Lactate [Moles/Vol] 1.4 mmol/L Normal 0.5-2.2 [facility] Comment on above: Order Comment: Speci men Type: VENOUS BLOOD SPECIMENOrdering Facility: [facility] Address: [address] [address] Performed By: #### V ALLMG ####[facility] LABIA [id number] [place] [address] [place] Magnesium [Moles/Vol] 0.58 mmol/L Normal 0.45-0.60 [facility] Comment on above: Order Comment: Speci men Type: VENOUS BLOOD SPECIMENOrdering Facility: [facility] Address: [address] Performed By: #### V ALLMG ####[facility] LABIA [id number] [place] [address] [place] Methemoglobin (Bld) [Mass fraction] 1.7 % High 0.0-1.[address] [facility] Comment on above: Order Comment: Speci men Type: VENOUS BLOOD SPECIMENOrdering Facility: [facility] Address: [address] Performed By: #### V ALLMG ####[facility] LABCLIA [id number] [place] [address] [place] Oxygen (BldV) [Partial pressure] 96 mm[Hg] High 35-[address] [facility] Comment on above: Order Comment: Speci men Type: VENOUS BLOOD SPECIMENOrdering Facility: [facility] Address: [address] [place], [place] [address] Performed By: #### V ALLMG ####[facility] LABCLIA [id number] [place] [address] [place] Oxygen adjusted to patient's actual temperature (BldV) [Partial pressure] 96 mmHg High 35-[address] [facility] Comment on above: Order Comment: Speci men Type: VENOUS BLOOD SPECIMENOrdering Facility: [facility] Address: [address] [place], [place] [address] Performed By: #### V ALLMG ####[facility] LABCLIA [id number] [place] [address] [place] Oxygen saturation in Venous blood 97 % High 60-[address] [facility] Comment on above: Order Comment: Speci men Type: VENOUS BLOOD SPECIMENOrdering Facility: [facility] Address: [address] [place] [address] Performed By: #### V ALLMG ####[facility] LABCLIA [id number] [place] [address] [place] Oxyhemoglobin (BldV) [Mass fraction] 94 % High 60-[address] [facility] Comment on above: Order Comment: Speci men Type: VENOUS BLOOD SPECIMENOrdering Facility: [facility] Address: [address] [place], [place] [address] Performed By: #### V ALLMG ####[facility] LABCL[facility] [id number] [place] [address] [place] pH (BldV) 7.39 [pH] Normal 7.32-7.[address] [facility] Comment on above: Order Comment: Speci men Type: VENOUS BLOOD SPECIMENOrdering Facility: [facility] Address: [address] [place] [address] Performed By: #### V ALLMG ####[facility] LABCLIA [id number] [place] [address] [place] pH adjusted to patient's actual temperature (BldV) 7.39 Normal 7.32-7.[address] [facility] Comment on above: Order Comment: Speci men Type: VENOUS BLOOD SPECIMENOrdering Facility: [facility] Address: [address] [place] [address] Performed By: #### V ALLMG ####[facility] LABCLIA [id number] [place] [address] [place] Potassium [Moles/Vol] 3.8 mmol/L Normal 3.5-5.0 [facility] Comment on above: Order Comment: Speci men Type: VENOUS BLOOD SPECIMENOrdering Facility: [facility] Address: [address] [address] Performed By: #### V ALLMG ####[facility] LABCLIA [id number] [place] [address] [place] Sodium [Moles/Vol] 139 mmol/L Normal 136-144 [facility] Comment on above: Order Comment: Speci men Type: VENOUS BLOOD SPECIMENOrdering Facility: [facility] Address: [address] [place] [address] Performed By: #### V ALLMG ####[facility] LABCLIA [id number] [place] [address] [place] XR CHEST 1V [...] tortuous. Other: Generalized osteopenia. IMPRESSION: See result. Licensed Practical Vocational Nurse: PSCB Transcribe Date/Time: Aug 28 2022 10:04P Dictated by : AMERICO ADHIKARI MD This examination was interpreted and the report reviewed and electronically signed by: AMERICO ADHIKARI MD on Aug 28 2022 10:06PM EST [id number] Normal [facility] Bacteria Bld Culton 08-28-19 23 Bacteria identified Cx Nom (Bld) CULTURE, BLOOD: No growth 5 days Normal [facility] Comment on above: Performed By: #### 6 00-7 ####[facility] LABCLIA [id number] [place] [address] [place] Bacteria identified Cx Nom (Bld) CULTURE, BLOOD: No growth 5 days Normal [facility] Comment on above: Performed By: #### 6 00-7 ####[facility] LABCLIA [id number] [place] [address] [place] Bacteria Ur Culton 3 Bacteria identified Cx Nom (U) CULTURE, URINE: No growth (<1,000 CFU/ml) Normal [facility] Comment on above: Performed By: #### 6 30-4 ####[facility] LABCLIA [id number] [place] [address] [place] Basic metabolic 2000 panelon 08-27-2022 Anion gap [Moles/Vol] 13 mmol/L Normal 9-18 [facility] Comment on above: Order Comment: Speci men Type: BLOOD SPECIMENOrdering Facility: [facility] Address: [address] Performed By: #### 2 4321-2, , 2776-02 ####[facility] LABCLIA [id number] [place] [address] [place] Calcium [Mass/Vol] 9.3 mg/dL Normal 8.5-10.2 [facility] Comment on above: Order Comment: Speci men Type: BLOOD SPECIMENOrdering Facility: [facility] Address: [address] Performed By: #### 2 4321-2, , 2776-02 ####[facility] LABCLIA [id number] [place] [address] [place] Chloride [Moles/Vol] 105 mmol/L Normal 97-105 [facility] Comment on above: Order Comment: Speci men Type: BLOOD SPECIMENOrdering Facility: [facility] Address: [address] [place], [place] [address] Performed By: #### 2 4321-2, , 2776-02 ####[facility] LABCLIA [id number] [place] [address] [place] CO2 [Moles/Vol] 22 mmol/L Normal 22-[address] [facility] Comment on above: Order Comment: Speci men Type: BLOOD SPECIMENOrdering Facility: [facility] Address: [address] Performed By: #### 2 4321-2, , 2776-02 ####[facility] LABCLIA [id number] [place] [id number] [place] Creatinine [Mass/Vol] 0.79 mg/dL Normal 0.73-1.22 [facility] Comment on above: Order Comment: Speci men Type: BLOOD SPECIMENOrdering Facility: [facility] Address: [address] [id number] Performed By: #### 2 4321-2, 46238-8, 2776-02 ####[facility] [id number] [place] [address] [place] ESTIMATED GLOMERULAR FILTRATION RATE 91 mL/min/1.73m??? Normal >=[address] [facility] Comment on above: Order Comment: Portia tay Type: BLOOD SPECIMENOrdering Facility: [facility] Address: [address] Result Comment: Mariaelena mated Glomerular Filtration [...] Performed By: #### 2 4321-2, , 2776-02 ####[facility] LABIA [id number] [place] [address] [place] Glucose [Mass/Vol] 197 mg/dL High 74-99 [facility] Comment on above: Order Comment: Portia tay Type: BLOOD SPECIMENOrdering Facility: [facility] Address: [address] [place] [address] Result Comment: The [place] Diabetes Association (ADA) provides guidance for cutoff [...] Standards of Medical Care in Diabetes 2016, [place] Diabetes Association. Diabetes Care. 2016.39(Suppl 1). Performed By: #### 2 4321-2, , 2776-02 ####[facility] LABCLIA [id number] [place] [address] [place] Potassium [Moles/Vol] 4.3 mmol/L Normal 3.7-5.1 [facility] Comment on above: Order Comment: Speci men Type: BLOOD SPECIMENOrdering Facility: [facility] Address: [address] [place] [address] Performed By: #### 2 4321-2, , 2776-02 ####[facility] LABCLIA [id number] [place] [address] [place] Sodium [Moles/Vol] 140 mmol/L Normal 136-144 [facility] Comment on above: Order Comment: Speci men Type: BLOOD SPECIMENOrdering Facility: [facility] Address: [address] [place] [address] Performed By: #### 2 4321-2, , 2776-02 ####[facility] LABCLIA [id number] [place] [address] [place] Urea nitrogen [Mass/Vol] 17 mg/dL Normal 9-[address] [facility] Comment on above: Order Comment: Speci men Type: BLOOD SPECIMENOrdering Facility: [facility] Address: [address] [place] [address] Performed By: #### 2 4321-2, , 2776-02 ####[facility] LABCLIA [id number] [address] [address] [place] CASE MGT INIT NICCIESon 2022 CASE MGT INIT ASSES HNO ID: [id number] Author: Yane George RN Service: ? Author [...] Current Advance Directive: Health Care Power of Motivational Speaker (Patient reports he has AD. request copy [...] General wellness, Be able to go home [place] of Choice Explained: [place] of [place] Given: No Reason Not Given: [...] HLD, DM, nephrolithiasis who was transferred from [facility] w/ gross hematuria CM met patient in room. Patient lives with spouse at home. Patient reports independence at home with adl's/iadl's prior to admission. No oxygen, or cpaps at home. Had recent MA in past. Cardiology on consult. No current [...] 27, 2022 TIME: 5:05 PM CONTACT #: [phone] [facility] CBC W Auto Differential pane l (Bld)on 08-27-2022 Basophils (Bld) [#/Vol] 0.03 10*3/uL Normal <0.[address] [facility] Comment on above: Order Comment: Speci men Type: BLOOD SPECIMENOrdering Facility: [facility] Address: [address] [place] [address] Performed By: #### 5 7021-8 ####[facility] LABCLIA [id number] [place] [address] [place] Basophils/100 WBC (Bld) 0.2 % Normal [facility] Comment on above: Order Comment: Speci men Type: BLOOD SPECIMENOrdering Facility: [facility] Address: [address] [place] [address] Performed By: #### 5 7021-8 ####[facility] LABCLIA [id number] [place] [address] [place] Differential cell count method Nom (Bld) Auto Normal [facility] Comment on above: Order Comment: Speci men Type: BLOOD SPECIMENOrdering Facility: [facility] Address: [address] [place] [address] Performed By: #### 5 7021-8 ####[facility] LABCLIA [id number] [place] [address] [place] Eosinophils (Bld) [#/Vol] 10*3/uL Normal <0.[address] [facility] Comment on above: Order Comment: Speci men Type: BLOOD SPECIMENOrdering Facility: [facility] Address: [address] [place] [address] Performed By: #### 5 7021-8 ####[facility] LABCLIA [id number] [place] [address] [place] Eosinophils/100 WBC (Bld) 0.1 % Normal [facility] Comment on above: Order Comment: Speci men Type: BLOOD SPECIMENOrdering Facility: [facility] Address: [address] [place] [address] Performed By: #### 5 7021-8 ####[facility] LABCLIA [id number] [place] [address] [place] Erythrocyte distribution width (RBC) [Ratio] 12.5 % Normal 11.5-15.[address] [facility] Comment on above: Order Comment: Speci men Type: BLOOD SPECIMENOrdering Facility: [facility] Address: [address] [place] [address] Performed By: #### 5 7021-8 ####[facility] LABIA [id number] [place] [address] [place] Hematocrit (Bld) [Volume fraction] 38.5 % Low 39.0-51.[address] [facility] Comment on above: Order Comment: Speci men Type: BLOOD SPECIMENOrdering Facility: [facility] Address: [address] [place] [address] Performed By: #### 5 7021-8 ####[facility] LABIA [id number] [place] [address] [place] Hemoglobin (Bld) [Mass/Vol] 13.4 g/dL Normal 13.0-17.[address] [facility] Comment on above: Order Comment: Speci men Type: BLOOD SPECIMENOrdering Facility: [facility] Address: [address] [place], [place] [address] Performed By: #### 5 7021-8 ####[facility] LABIA [id number] [place] [address] [place] Immature granulocytes (Bld) [#/Vol] 0.10 10*3/uL High <0.[address] [facility] Comment on above: Order Comment: Speci men Type: BLOOD SPECIMENOrdering Facility: [facility] Address: [address] [address] Performed By: #### 5 7021-8 ####[facility] LABCLIA [id number] [address] Immature granulocytes/100 WBC (Bld) 0.6 % Normal [facility] Comment on above: Order Comment: Speci men Type: BLOOD SPECIMENOrdering Facility: [facility] Address: [address] [place] [address] Performed By: #### 5 7021-8 ####[facility] LABCLIA [id number] [place] [address] [place] Lymphocytes (Bld) [#/Vol] 1.16 10*3/uL Normal 1.00-4.[address] [facility] Comment on above: Order Comment: Speci men Type: BLOOD SPECIMENOrdering Facility: [facility] Address: [address] [place] [address] Performed By: #### 5 7021-8 ####[facility] LABCLIA [id number] [address] STATES [facility] Lymphocytes/100 WBC (Bld) 7.1 % Normal [facility] Comment on above: Order Comment: Speci men Type: BLOOD SPECIMENOrdering Facility: [facility] Address: [address] [place], [place] [address] Performed By: #### 5 7021-8 ####[facility] LABCLIA [id number] [place] [address] [place] MCH (RBC) [Entitic mass] 31.5 pg Normal 26.0-34.[address] [facility] Comment on above: Order Comment: Speci men Type: BLOOD SPECIMENOrdering Facility: [facility] Address: [address] [place] [address] Performed By: #### 5 7021-8 ####[facility] LABCLIA [id number] [place] [address] [place] MCHC (RBC) [Mass/Vol] 34.8 g/dL Normal 30.5-36.0 [facility] Comment on above: Order Comment: Speci men Type: BLOOD SPECIMENOrdering Facility: [facility] Address: [address] [place] [address] Performed By: #### 5 7021-8 ####[facility] LABIA [id number] [place] [address] [place] MCV (RBC) [Entitic vol] 90.6 fL Normal 80.0-100.0 [facility] Comment on above: Order Comment: Speci men Type: BLOOD SPECIMENOrdering Facility: [facility] Address: [address] [place] [address] Performed By: #### 5 7021-8 ####[facility] LABIA [id number] [place] [address] [place] Monocytes (Bld) [#/Vol] 1.00 10*3/uL High <0.[address] [facility] Comment on above: Order Comment: Speci men Type: BLOOD SPECIMENOrdering Facility: [facility] Address: [address] [place], [place] [address] Performed By: #### 5 7021-8 ####[facility] LABIA [id number] [place] [address] [place] Monocytes/100 WBC (Bld) 6.2 % Normal [facility] Comment on above: Order Comment: Speci men Type: BLOOD SPECIMENOrdering Facility: [facility] Address: [address] [place], [place] [address] Performed By: #### 5 7021-8 ####[facility] LABCLIA [id number] [place] [address] [place] Neutrophils (Bld) [#/Vol] 13.93 10*3/uL High 1.45-7.[address] [facility] Comment on above: Order Comment: Speci men Type: BLOOD SPECIMENOrdering Facility: [facility] Address: [address] Performed By: #### 5 7021-8 ####[facility] LABIA [id number] [address] [place] Neutrophils/100 WBC (Bld) 85.8 % Normal [facility] Comment on above: Order Comment: Speci men Type: BLOOD SPECIMENOrdering Facility: [facility] Address: [address] Performed By: #### 5 7021-8 ####[facility] LABIA [id number] [place] [address] [place] Nucleated RBC (Bld) [#/Vol] 10*3/uL Normal <0.[address] [facility] Comment on above: Order Comment: Speci men Type: BLOOD SPECIMENOrdering Facility: [facility] Address: [address] Performed By: #### 5 7021-8 ####[facility] LABIA [id number] [place] [address] [place] Nucleated RBC/100 WBC (Bld) [Ratio] 0.0 /100 WBC Normal [facility] Comment on above: Order Comment: Speci men Type: BLOOD SPECIMENOrdering Facility: [facility] Address: [address] [place] [address] Performed By: #### 5 7021-8 ####[facility] LABIA [id number] [place] [address] [place] Platelet mean volume (Bld) [Entitic vol] 11.4 fL Normal 9.0-12.[address] [facility] Comment on above: Order Comment: Speci men Type: BLOOD SPECIMENOrdering Facility: [facility] Address: [address] Performed By: #### 5 7021-8 ####[facility] [id number] [place] [address] [place] Platelets (Bld) [#/Vol] 214 10*3/uL Normal 150-[address] [facility] Comment on above: Order Comment: Speci men Type: BLOOD SPECIMENOrdering Facility: [facility] Address: [address] [place] [address] Performed By: #### 5 7021-8 ####[facility] [id number] [place] [address] [place] RBC (Bld) [#/Vol] 4.25 10*6/uL Normal 4.20-6.00 [facility] Comment on above: Order Comment: Speci men Type: BLOOD SPECIMENOrdering Facility: [facility] Address: [address] [place] [address] Performed By: #### 5 7021-8 ####[facility] [id number] [place] [address] [place] WBC (Bld) [#/Vol] 16.24 10*3/uL High 3.70-11.00 [facility] Comment on above: Order Comment: Speci men Type: BLOOD SPECIMENOrdering Facility: [facility] Address: [address] [place] [address] Performed By: #### 5 7021-8 ####[facility] [id number] [address] OF [facility] CONFIRM BLOOD TYPEon 023 ABO O Normal [facility] Comment on above: Order Comment: Speci men Type: BLOOD SPECIMENOrdering Facility: [facility] Address: [address] [place] [address] Performed By: #### C ONABO ####[facility] BLOOD [facility] [id number] [address] [place] Rh Nom (Bld) Positive Normal [facility] Comment on above: Order Comment: Speci men Type: BLOOD SPECIMENOrdering Facility: [facility] Address: [address] [place] [address] Performed By: #### C ONABO ####CC [facility] BLOOD BANKCLIA [id number] [id number] [id number] [facility] CONSULTon 08-27-2022 CONSULT HNO ID: [id number] Author: Uzma Bates MD Service: Cardiovascular Medicine Author Type: Physician Type: Consults Filed: 08/27/2022 8:39 PM Note Text: [facility] CARDIOVASCULAR MEDICINE CONSULT NOTE (Template ID [id number]) Olaf Briones [id number] PRIMARY SERVICE: Urology CONSULTING SERVICE: Cardiovascular Medicine: General Consults DATE OF ADMISSION: 08/27/2022 DATE OF CONSULT: 08/27/2022 REASON FOR CONSULT Fluid management , near-syncope HISTORY OF PRESENT ILLNESS Oalf Briones is a 77 year old male w/ recent STEMI (08/20/22) s/p 3mm JUHI to prox RCA, 50 - <70% mid to distal LAD disease, mild LCX disease, HTN, HLD, DM, nephrolithiasis who was transferred from [facility] w/ gross hematuria. Hematuria started on [...] passed out . Pt was [facility] to [facility] by EMS and was found to be in complete AV block with HR in 40's, inferolateral ST elevations. 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 After stent was deployed in prox RCA,AV block resolved and HR normalized. Pt was put on ASA, Brillinta, Lisinopril (2.5), and Coreg (6.25) and was discharged two days later. PAST MEDICAL HISTORY HTN, HLD, CAD, DM FAMILY HISTORY Son- MA, Daughter- MA HOME MEDICATIONS allopurinol (ZYLOPRIM) 300 mg tabletTake [...] (more content not included)... Normal [facility] CT Urogramon 08-27-2022 CT Urogram Exam [...] FINAL REPORT Dictated: 08/27/2022 9:37 am Gt Aleoj MD Signed (Electronic Signature): 08/27/2022 9:37 am Signed by: Gt Alejo MD Transcribed by: KEVIN Technologist: WILMER Technical Comments GFR (mL/min/1/73m2) 88 Contrast: Isovue 300 Contrast amount in ml's: [address] [facility] Consultation Noteon 08-28-19 Consultation Note Patient: ARTHUR BRIONES Age: 77 years Sex: Male : 1945 Associated Diagnoses: None Author: Alexandre KOROMA MD Chief Complaint 08/26/2022 17:07 EDT pt to ER with c/o lower pelvic pain and blood clots in urine that started saturday. history of kidney stones. just had a stent placed last saturday at [facility]. sees dr ivory Thank for consultation [...] BPH with urinary obstruction / SNOMED CT 4204866887 / Confirmed Kidney stone / SNOMED CT 127332854 / Confirmed Weak urinary stream / SNOMED CT 900638634 / Confirmed Microscopic hematuria / SNOMED CT 447978507 / Confirmed Diabetes / SNOMED CT 939450387 / Confirmed Hypertension / SNOMED CT 9931006071 / Confirmed Prostatitis / SNOMED CT 22292166 / Confirmed BPH without urinary obstruction / SNOMED CT 8520173351 / Confirmed Gross hematuria / SNOMED CT 897604334 / Confirmed Asymptomatic microscopic hematuria / SNOMED CT 7679818744 / Confirmed, Active Problems (10) Asymptomatic microscopic hematuria BPH with urinary obstruction BPH without urinary obstruction Diabetes Gross hematuria Hypertension Kidney stone Microscopic hematuria Prostatitis Weak urinary stream Histories Past Medical History: No active or resolved past medical history items have been selected or recorded. Family History: Hypertension Father Procedure history: Cystoscopy ([id number]) on 08/18/2013 at 68 Years. Comments: 10/02/2018 16:11 ROLA - Katie Rogers MA 11/08/200904/2006 TURP - Transurethral resection of prostate (232151800) in 2006 at 61 Years. Urodynamics (193597510) in 2006 at 61 Years. Transrectal biopsy of prostate using ultrasound (US) guidance (5956458373) in 2005 at 60 Years. ESWL - Extracorporeal shockwave lithotripsy for renal calculus (835014912) in 2000 at 55 Years. Comments: 10/02/2018 [...] Press (more content not included)... Normal [facility] Comment on above: Result Comment: Elec tronically Signed By: Alexandre KOROMA MD\.br\Date and Time Signed: 08/26/22 22:22 EDT ECG COMPLETEon 08-27-2022 ECG COMPLETE Ventricular Rate : 6 8 BPM Atrial Rate : 68 BPM P-R Interval : 186 ms QRS Duration : 102 ms Q-T Interval : 452 ms QTC Calculation(Bazett) : 480 ms Calculated P [place] : 7 degrees Calculated R [place] : -25 degrees Calculated T [place] : -33 degrees NORMAL SINUS RHYTHM MINIMAL VOLTAGE CRITERIA FOR LVH, MAY BE NORMAL VARIANT ( R in aVL ) CANNOT EXCLUDE ANTERIOR MYOCARDIAL INFARCTION , AGE UNDETERMINED ABNORMAL ECG Confirmed by GAVINO HAHN, CODY ([id number]) on 09/01/2022 3:04:36 PM NAME : OLAF BRIONES PID : [id number] : 1945 Gender : Male Race : Unknown ORD : [id number] Procedure Date : Aug 27 2022 12:56:05 [...] Acquired by : CAROL MALDONADO [facility] ED Clinical Summaryon 2022 ED Clinical Summary (Inserted Image. Amara ble to display) [place] [id number] ED Clinical Summary Person Information Name: OLAF BRIONES Consuelo/[facility] Age: 77 Years : 1945 Sex: Male [...] 08/27/2022 04:32:32 08/27/2022 04:32:32 08/27/2022 04:32:32 ADDRESS: [address] [place] [id number] [place] [address] NOTES: MEDICAL INFORMATION: Prescriptions Given: Medications to [...] Other obstructive and reflux uropathy Normal [facility] ED Note-Physicianon 08-28-19 ED Note-Physician Patient [...] and spoke with Dr. Johnson from the [facility] who agreed to the transfer the patient for further care. Normal [facility] Comment on above: Result Comment: Elec tronically Signed By: Tom Salas DO\.br\Date and Time Signed: 08/27/22 02:17 EDT ED Patient Education Noteon 08-27-2022 ED Patient Education Note Normal [facility] ED Patient Summaryon 023 ED Patient Summary (Inserted Image. Amraa ble to display) [place] [id number] Patient Discharge Instructions Person Information Name: OLAF BRIONES Age: 77 Years Arrival Date: 08/26/2022 16:52:40 Discharge Diagnosis: 1:Urinary retention; 2:Gross hematuria; 3:Urinary tract infection; Other obstructive and reflux uropathy Primary Care Physician: CHRISTI HAHN, JAME Bowers Provider Information Primary Provider: Abdulkadir Villatoro, Keith Arnold Advanced Machine Overhauler:None The exam and treatment you received in the Emergency Department were for an urgent problem and are not intended as complete care. It is important that you follow up with a doctor, nurse practitioner, or physician?s assistant tennis professional for ongoing care. If your symptoms become [...] opioids can be used to help relieve pnnnksng-yl-pvoubc pain and are often prescribed following a [...] be struggling with addiction, tell your health daycare teacher and ask for guidance or call [facility] National Helpline at 5-209-040-ZCLE. v Source: [place] Department of Health and Human Services/Center for Disease Control & Prevention [place] H (more content not included)... Normal [facility] HISTORY PHYSICALon 3 HISTORY PHYSICAL HNO ID: [id number] Author: David Andrews MD Service: Urology Author Type: Physician Type: HANDP Filed: 08/27/2022 9:26 PM Note Text: UROLOGY SERVICE HISTORY AND PHYSICAL Name: Olaf Briones Bed: H050 001/H050-01 Date: 08/27/2022 After Hours [facility] Service Pager: [phone] ASSESSMENT AND PLAN Olaf Briones is a 77 year old male with PMHx of HTN, HLD, DM, recent STEMI (s/p JUHI), nephrolithiasis, transferred from [facility] for gross hematuria. Currently with 18Fr [...] catheter stops flowing clamp CBI and page [phone] - Will continue to follow urine, if remains clear may be able to avoid OR this admission in setting of recent STEMI requiring PCI - Working to obtain cardiology records from [facility] Gt Encarnacion MD PGY-6, Urology Pager: [phone] After 1800 and on weekends please page [phone] for assistance. Active Problems Prior MA POA: Yes - placed on ASA 81, [...] recent STEMI (s/p JUHI), nephrolithiasis, transferred from [facility] for gross hematuria. He recently had primary revascularization of proximal RCA (3mm JUHI) placed at [facility] for STEMI on August 20. He [...] He is seen by Dr. Ivory in [facility] for nephrolithiasis. He previously had ESWL [...] (more content not included)... Normal [facility] Insurance Correspondence Off 08-27-2022 Insurance Correspondence Office [id number]:[address] [facility] MEDICAL EMERon 08-27-2022 MEDICAL [facility] HNO ID: [id number] Author: Francis Irizarry MD Service: Urology Author Type: Resident Type: Chg in Clinical Condition Filed: 08/27/2022 9:40 AM Note Text: Olaf Briones 08/27/2022 9:33 AM AMET for orthostatic hypotension Assessment: Olaf Briones is a 77 year old male with PMHx of HTN, HLD, DM, recent STEMI (s/p JUHI), nephrolithiasis, transferred from [facility] for gross hematuria. Currently with 18Fr [...] brillinta for recent STEMI last week at [facility]. Unable to see ECHO data, EKG [...] his is coming to visit. Stated his general ledger bookkeeper in [place] at [facility] is Dr. Zamora. Luis Angel on brillinta [...] at bedside to have bring records from [facility] to here. Will also request ECHO report from [facility] as well. - Continue CBI, titrate to light pink Discussed with chief, Dr. Encarnacion, and staff, Dr. Sharon Irizarry MD Pager [phone], after hours or weekends please page [phone] Urology Resident, PGY-5 Normal [facility] HNO ID: [id number] Author: Claudy William APRN.BAR GAUGER AND LUBRICATOR TENDER Service: Critical Care Author Type: Nurse Practitioner [...] 2022 TIME: 9:11 AM Normal [facility] Magnesium SerPl-mCncon 08-27 Magnesium [Mass/Vol] 2.2 mg/dL Normal 1.7-2.3 [facility] Comment on above: Order Comment: Portia tay Type: BLOOD SPECIMENOrdering Facility: [facility] Address: [address] [place], [place] [address] Performed By: #### 2 4321-2, 38520-4, 2777-1 ####[facility] LABCLIA [id number] [facility] [address] Monitor Recordon 08-27-2022 Monitor Record [id number]#[id number]:[address] [facility] PT panel Coag (PPP)on 2022 INR Coag (PPP) [Relative time] 1.0 {INR} Normal 0.9-1.[address] [facility] Comment on above: Order Comment: Portia tay Type: BLOOD SPECIMENOrdering Facility: [facility] Address: [address] [place], [place] [address] Result Comment: Mago min K Antagonist (VKA) Therapeutic Range: INR 2 to 3 (Target INR of 2.5) Note: For patients treated with VKA drugs, such as warfarin, the [place] [employer] 2012 Guideline recommends [...] Chest 2012, 141:7S-47S Daniel RA, et al. [facility] 2017, 70: 252-289 Performed By: #### 3 4528-0, 96194-5 ####[facility] LABIA [id number] [address] STATES OF [facility] PT Coag (PPP) [Time] 10.4 s Normal 9.7-13.0 [facility] Comment on above: Order Comment: Speci men Type: BLOOD SPECIMENOrdering Facility: [facility] Address: [address] [place] [address] Performed By: #### 3 4528-0, 01732-4 ####[facility] [id number] [address] OF [place] Phosphate SerPl-mCncon 08-27 Phosphate [Mass/Vol] 3.7 mg/dL Normal 2.7-4.8 [facility] Comment on above: Order Comment: Speci men Type: BLOOD SPECIMENOrdering Facility: [facility] Address: [address] [place] [address] Performed By: #### 2 4321-2, 47092-2, 2777-1 ####[facility] [id number] [address] [place] RAD - Preliminary Cat Scan R eporton 08-27-2022 RAD - Preliminary Cat Scan Report [id number]#[id number]:[address] [facility] TYPE + SCREENon 08-27-2022 ABO O Normal [facility] Comment on above: Order Comment: Speci men Type: BLOOD SPECIMENOrdering Facility: [facility] Address: [address] [place] [address] Performed By: #### T SCR ####CC MAIN BLOOD BANKCLIA [id number] [address] HISTORICAL AB SCR STATUS Negative Normal [facility] Comment on above: Order Comment: Speci men Type: BLOOD SPECIMENOrdering Facility: [facility] Address: [address] [place] [address] Performed By: #### T SCR ####CC MAIN BLOOD BANKCLIA [id number] [address] [place] Rh Nom (Bld) Positive Normal [facility] Comment on above: Order Comment: Speci men Type: BLOOD SPECIMENOrdering Facility: [facility] Address: [address] [place] [address] Performed By: #### T SCR ####CC [facility] BLOOD BANKCLIA [id number] [address] [place] TYPE AND SCREEN EXPIRATION 08/30/2022 23:[address] [facility] Comment on above: Order Comment: Speci men Type: BLOOD SPECIMENOrdering Facility: [facility] Address: [address] [place] [address] Performed By: #### T SCR ####CC [facility] BLOOD BANKCLIA [id number] [place] [address] [place] Transfer Documentson 023 Transfer Documents [id number]#[id number]:[address] [facility] aPTT PPPon 08-27-2022 aPTT Coag (PPP) [Time] 28.7 s Normal 23.0-32.4 [facility] Comment on above: Order Comment: Speci men Type: BLOOD SPECIMENOrdering Facility: [facility] Address: [address] [place] [address] Performed By: #### 3 4528-0, 69660-7 ####[facility] LABCLIA [id number] [place] [id number] [place] Auto Diffon 08-26-2022 Basophils/100 WBC (Bld) 0.5 % Normal 0.0-2.0 [facility] Comment on above: Order Comment: Order Added by Discern Expert. Performed By: #### 2 166342, 17976130, 8309179, 85964268, 9456671 #### [facility] [address] [place] [address] Basophils/Leukocytes Auto (Bld) [Pure # fraction] 0.1 E9/L Normal 0.0-0.[address] [facility] Comment on above: Order Comment: Order Added by Discern Expert. Performed By: #### 2 931691, 28532840, 8361299, 75765667, 4391058 #### [facility] [address] [place] [address] Eosinophils/100 WBC (Bld) 0.9 % Normal 0.0-8.[address] [facility] Comment on above: Order Comment: Order Added by Discern Expert. Performed By: #### 2 529939, 46074131, 8361123, 79613026, 5990261 #### [facility] [address] [place] [address] Eosinophils/Leukocytes Auto (Bld) [Pure # fraction] 0.1 E9/L Normal 0.0-0.[address] [facility] Comment on above: Order Comment: Order Added by Discern Expert. Performed By: #### 2 822174, 91099488, 6820237, 06570654, 4361031 #### [facility] [address] [place] [address] Lymphocytes/100 WBC (Bld) 6.1 % Low 14.0-50.[address] [facility] Comment on above: Order Comment: Order Added by Discern Expert. Performed By: #### 2 912172, 30598244, 0350753, 38450293, 6953075 #### [facility] [address] [place] [address]78 Lymphocytes/Leukocytes Auto (Bld) [Pure # fraction] 0.9 E9/L Low 1.0-4.[address] [facility] Comment on above: Order Comment: Order Added by Discern Expert. Performed By: #### 2 031485, 31123656, 7072280, 91317384, 9681332 #### [facility] [address] [place] [address] Monocytes/100 WBC (Bld) 4.9 % Normal 4.0-14.0 [facility] Comment on above: Order Comment: Order Added by Discern Expert. Performed By: #### 2 409228, 01865754, 7313718, 95032160, 0920174 #### [facility] [address] [place] [address] Monocytes/Leukocytes Auto (Bld) [Pure # fraction] 0.8 E9/L Normal 0.2-1.[address] [facility] Comment on above: Order Comment: Order Added by Discern Expert. Performed By: #### 2 398422, 97623398, 2449079, 03660625, 5031334 #### [facility] [address] [place] [address] Neutrophils/100 WBC (Bld) 87.6 % High 36.0-75.[address] [facility] Comment on above: Order Comment: Order Added by Discern Expert. Performed By: #### 2 998279, 99907031, 2607281, 54376326, 6349886 #### [facility] [address] [place] [address] Neutrophils/Leukocytes Auto (Bld) [Pure # fraction] 13.5 E9/L High 2.0-7.[address] [facility] Comment on above: Order Comment: Order Added by Discern Expert. Performed By: #### 2 733623, 48582553, 9164079, 09015308, 7976162 #### [facility] [address] [place] [address] BMPon 08-26-2022 Creatinine [Mass/Vol] 0.9 mg/dL Normal 0.5-1.3 [facility] Comment on above: Performed By: #### 2 346212, 07985672, 6371372, 40831525, 6295964 #### [facility] [address] [place] [address] Urea nitrogen [Mass/Vol] 18 mg/dL Normal 5-[address] [facility] Comment on above: Performed By: #### 2 278288, 53011901, 0144699, 93174949, 3796997 #### [facility] [address] [place] [address] Urea nitrogen/Creatinine [Mass ratio] 20 No Units Normal 10-[address] [facility] Comment on above: Performed By: #### 2 278628, 44580641, 7283319, 38716432, 1722684 #### [facility] [address] [place] [address] Anion gap [Moles/Vol] 13 mmol/L Normal 6-16 [facility] Comment on above: Performed By: #### 2 939407, 86047460, 8510890, 63145028, 5005495 #### [facility] [address] [place] [address] Calcium [Mass/Vol] 8.9 mg/dL Normal 8.9-11.[address] [facility] Comment on above: Performed By: #### 2 753060, 69410517, 6500533, 62660001, 5513992 #### [facility] [address] [place] [address] Chloride [Moles/Vol] 105 mmol/L Normal 101-111 [facility] Comment on above: Performed By: #### 2 083636, 62095724, 5031631, 39923712, 2437858 #### [facility] [address] [place] [address] CO2 [Moles/Vol] 24 mmol/L Normal 21-[address] [facility] Comment on above: Performed By: #### 2 450860, 09869677, 5845826, 36804472, 2724045 #### [facility] [address] [place] [address] Glucose [Mass/Vol] 154 mg/dL Normal 55-[address] [facility] Comment on above: Result Comment: If t his glucose result represents a fasting glucose, interpretation should refer to the following reference range: 55-99 mg/dL Performed By: #### 2 606418, 93357344, 0484346, 58248612, 0835463 #### [facility] [address] [place] [address] Potassium [Moles/Vol] 4.0 mmol/L Normal 3.5-5.3 [facility] Comment on above: Performed By: #### 2 313126, 80414703, 3642384, 63751095, 9836425 #### [facility] [address] [place] [address] Sodium [Moles/Vol] 138 mmol/L Normal 135-[address] [facility] Comment on above: Performed By: #### 2 441645, 58269638, 7881153, 43796967, 9216784 #### [facility] [address] [place] [address] CBC w/ Auto Diffon 3 Erythrocyte distribution width (RBC) [Ratio] 13.4 % Normal 10.9-14.[address] [facility] Comment on above: Performed By: #### 2 169893, 38407103, 8911240, 22556290, 7783224 #### [facility] [address] [place] [address] Hematocrit (Bld) [Volume fraction] 40.9 % Normal 37.7-49.[address] [facility] Comment on above: Performed By: #### 2 397843, 25403877, 8937033, 74820000, 5394266 #### [facility] [address] [place] [address] Hemoglobin (Bld) [Mass/Vol] 14.0 g/dL Normal 13.5-17.[address] [facility] Comment on above: Performed By: #### 2 646035, 06941511, 1146987, 37475753, 4242025 #### [facility] [address] [place] [address] MCH (RBC) [Entitic mass] 31.3 pg Normal 27.0-34.[address] [facility] Comment on above: Performed By: #### 2 574111, 49968651, 6140352, 34821582, 9346357 #### [facility] [address] [place] [address] MCHC (RBC) [Mass/Vol] 34.1 g/dL Normal 31.4-36.0 [facility] Comment on above: Performed By: #### 2 019514, 43281000, 0927031, 02624466, 9334407 #### [facility] [address] [place] [address] MCV (RBC) [Entitic vol] 91.9 fL Normal 80.0-100.0 [facility] Comment on above: Performed By: #### 2 503054, 67617066, 7274541, 39141937, 8026012 #### [facility] [address] [place] [address] Platelet mean volume (Bld) [Entitic vol] 9.6 fL Normal 6.4-10.[address] [facility] Comment on above: Performed By: #### 2 469023, 59187289, 0381072, 65282886, 3468572 #### [facility] [address] [place] [address] Platelets (Bld) [#/Vol] 194.0 E9/L Normal 150. 0-500. [address] [facility] Comment on above: Performed By: #### 2 469842, 26840694, 7993029, 42840365, 4466784 #### [facility] [address] [place] [address] RBC (Bld) [#/Vol] 4.4 E12/L Normal 4.3-5.[address] [facility] Comment on above: Performed By: #### 2 171118, 91426008, 0554910, 77380112, 9107067 #### [facility] [address] [place] [address] WBC corrected for nucl RBC Auto (Bld) [#/Vol] 15.5 E9/L High 4.0-11.[address] [facility] Comment on above: Performed By: #### 2 620903, 86861255, 1807690, 14816929, 8533702 #### [facility] [address] [place] [address] CHEMISTRYOrdered By: [employer] on 08-26-2022 Anion gap [Moles/Vol] 13 [...] 88 mL/min/1.73 m2 Normal >=59mL/min /1.73 m2 [facility] Chem S Glucose [Mass/Vol] 154 mg/dL Normal [...] [Relative time] 1.2 {INR} Invalid Interpretation Code [facility] Auto Coag PT Coag (PPP) [Time] 12.8 s High 9.4 - 1 2.5 second(s) [facility] Auto Coag Consent for Treatmenton Consent for Treatment [id number]#[id number]:[address] [facility] ED Note-Physicianon 08-27-19 ED Note-Physician Basic Information Time Seen: Keith Panchal M.D. 08/26/2022 17:07 Chief Complaint pt to ER with c/o lower pelvic pain and blood clots in urine that started saturday. history of kidney stones. just had a stent placed last saturday at [facility]. sees dr ivory History of Present [...] and Complexity of Problems Differential Diagnosis: [] [facility] Data External documents reviewed: [] My EKG [...] Use, (more content not included)... Normal [facility] Comment on above: Result Comment: Elec [...] Cx Nom (U) No growth to date [facility] Monitor Recordon 08-26-2022 Monitor Record [id number]:[address] [facility] Monitor Record [id number]:[address] [facility] PT & PTTon 08-26-2022 aPTT Coag (PPP) [Time] 31.1 second(s) Normal 25.1-36.[address] [facility] Comment on above: Result Comment: Para [...] the same coagulation reagent and instrumentation as [facility]. Currently there are no coagulation studies available worldwide for children to 14 days, and no normal ranges. Heparin therapeutic range (represented by Anti-Factor Xa activity of 0.2 - 0.4 U/mL) corresponds to PTT of 56.6 - 109.0 sec. Performed By: #### 2 728160, 61483668, 6827817, 43297467, 1606339 #### [facility] [address] [place] [address] INR Coag (PPP) [Relative time] 1.2 {INR} Invalid Interpretation Code [facility] Comment on above: Result Comment: INR results are specifically intended to assess patients stabilized on long-term Anticoagulation therapy suggested INR?s ?Less Intensive Anticoagulation? 2.0 ? 3.0 Conventional Range 3.0 ? 4.5 Performed By: #### 2 724123, 54595149, 4903487, 20459996, 8122073 #### [facility] [address] [place] [address] PT Coag (PPP) [Time] 12.8 second(s) High 9.4-12.[address] [facility] Comment on above: Result Comment: 15 [...] the same coagulation reagent and instrumentation as [facility]. Currently there are no coagulation studies available worldwide for children to 14 days, and no normal ranges. Performed By: #### 2 488371, 53689835, 7565640, 61404365, 6090165 #### [facility] [address] [place] [address] UA With Cult Reflexon 2022 Bacteria LM Ql (Urine sed) 1+ /HPF Abnormal Trace [facility] Comment on above: Order Comment: Urina ry Catheter Insertion triggered Urinalysis With Culture Reflex order by discern. Performed By: #### 2 801220, 30606347, 5430342, 62257147, 1478575 #### [facility] [address] [place] [address] Bilirubin Ql (U) Negative Normal Negative [facility] Comment on above: Order Comment: Urina ry Catheter Insertion triggered Urinalysis With Culture Reflex order by discern. Performed By: #### 2 366739, 84062269, 5710956, 17741456, 0754215 #### [facility] [address] [place] [address] Clarity (U) CLOUDY Abnormal Clear [facility] Comment on above: Order Comment: Urina ry Catheter Insertion triggered Urinalysis With Culture Reflex order by discern. Performed By: #### 2 577126, 00068772, 3000330, 69611435, 2128615 #### [facility] [address] [place] [address] Color (U) RED Abnormal Yellow [facility] Comment on above: Order Comment: Urina ry Catheter Insertion triggered Urinalysis With Culture Reflex order by discern. Performed By: #### 2 166159, 47050271, 8057326, 93491513, 1777591 #### [facility] [address] [place] [address] Epithelial cells.squamous LM.HPF (Urine sed) [#/Area] 0-2 Normal 0-[address] [facility] Comment on above: Order Comment: Urina ry Catheter Insertion triggered Urinalysis With Culture Reflex order by discern. Performed By: #### 2 444784, 97408139, 9125280, 91876180, 2625626 #### [facility] [address] [place] [address] Glucose Test strip (U) [Mass/Vol] TRACE Abnormal Negative [facility] Comment on above: Order Comment: Urina ry Catheter Insertion triggered Urinalysis With Culture Reflex order by discern. Performed By: #### 2 346311, 86939823, 3401470, 39898820, 5881108 #### [facility] [address] [place] [address] Hemoglobin Ql (U) 3+ Abnormal Negative [facility] Comment on above: Order Comment: Urina ry Catheter Insertion triggered Urinalysis With Culture Reflex order by discern. Performed By: #### 2 886124, 10782590, 4410069, 49582353, 6944751 #### [facility] [address] [place] [address] Ketones (U) [Mass/Vol] 1+ Abnormal Negative Fi [facility] Comment on above: Order Comment: Urina ry Catheter Insertion triggered Urinalysis With Culture Reflex order by discern. Performed By: #### 2 910546, 53710180, 1316882, 39030480, 7409144 #### [facility] [address] [place] [address] Delco.plasma/Delco. RBC (Bld) [Mass ratio] >75 Abnormal 0-[address] [facility] Comment on above: Order Comment: Urina ry Catheter Insertion triggered Urinalysis With Culture Reflex order by discern. Performed By: #### 2 482994, 59891902, 3674567, 56054255, 6817395 #### [facility] [address] [place] [address] Mucus Ql (Urine sed) 1+ Normal [facility] Comment on above: Order Comment: Urina ry Catheter Insertion triggered Urinalysis With Culture Reflex order by discern. Performed By: #### 2 734665, 91885269, 2844287, 23433076, 2833918 #### [facility] [address] [place] [address] Nitrite Ql (U) Positive Abnormal Negative [facility] Comment on above: Order Comment: Urina ry Catheter Insertion triggered Urinalysis With Culture Reflex order by discern. Performed By: #### 2 061179, 85908953, 8130363, 56351630, 3167232 #### [facility] [address] [place] [address] pH (U) 7.5 [pH] Invalid Interpretation Code 5.0-9.[address] [facility] Comment on above: Order Comment: Urina ry Catheter Insertion triggered Urinalysis With Culture Reflex order by discern. Performed By: #### 2 140044, 11190237, 7028427, 16974537, 7786377 #### [facility] [address] [place] [address] Protein (U) [Mass/Vol] 3+ Abnormal Negative Fi [facility] Comment on above: Order Comment: Urina ry Catheter Insertion triggered Urinalysis With Culture Reflex order by discern. Performed By: #### 2 943070, 50015653, 7635743, 03406733, 3203402 #### [facility] [address] [place] [address] Specific gravity (U) [Rel density] 1.015 Invalid Interpretation Code 1.005-1.[address] [facility] Comment on above: Order Comment: Urina ry Catheter Insertion triggered Urinalysis With Culture Reflex order by discern. Performed By: #### 2 441795, 08281651, 4151425, 73114656, 5619778 #### [facility] [address] [place] [address] Type of Urine collection method Catheter Normal [facility] Comment on above: Order Comment: Urina ry Catheter Insertion triggered Urinalysis With Culture Reflex order by discern. Performed By: #### 2 161016, 48224440, 2304903, 25967044, 3543510 #### [facility] [address] [place] [address] Urobilinogen Qn (U) >=8.0 Abnormal 0.0-1.0 [facility] Comment on above: Order Comment: Urina ry Catheter Insertion triggered Urinalysis With Culture Reflex order by discern. Performed By: #### 2 453009, 21046492, 2359748, 49657666, 6935546 #### [facility] [address] [place] [address] WBC Auto Ql (U) 2+ Abnormal Negative [facility] Comment on above: Order Comment: Urina ry Catheter Insertion triggered Urinalysis With Culture Reflex order by discern. Performed By: #### 2 568846, 95727865, 7677902, 18839784, 5231095 #### [facility] [address] [place] [address] WBC LM.HPF (Urine sed) [#/Area] 16-25 Abnormal 0-[address] [facility] Comment on above: Order Comment: Urina ry Catheter Insertion triggered Urinalysis With Culture Reflex order by discern. Performed By: #### 2 312546, 06715559, 2850819, 64042244, 9733233 #### [facility] [address] [place] [address] URINALYSISOrdered By: Jordan quintana on 08-26-2022 Bacteria [...] Interpretation Code Negative [facility] UA Auto SS Delco.plasma/Delco. RBC (Bld) [Mass ratio] >75 /HPF Invalid [...] (08/26/22 6:58 PM) Invalid Interpretation Code Negative [facility] UA Auto SS WBC LM.HPF (Urine sed) [#/Area] 16-25 /HPF Invalid Interpretation Code 0-5/HPF [facility] UA Auto SS eGFRon 08-26-2022 GFR/1.73 sq M.predicted among non-blacks MDRD (S/P/Bld) [Vol rate/Area] 88 mL/min/1.73 m2 Normal >=[address] [facility] Comment on above: Order Comment: Order added by Discern Expert. Result Comment: [employer]one Software Development Engineer elio kidney disease could be indicated at eGFR's of less than 60 mL/min/1.73m2. Kidney failure is indicated at less than 15 mL/min/1.73m2. Performed By: #### 2 [id number] #### [facility] [address] [place] [address] Basic Metabolic Panelon Anion gap [Moles/Vol] 10.8 mmol/L Normal 6.0-15.0 [facility] Comment on above: Performed By: #### H S TROP #### [facility] [address] [place] [address] [place] Calcium [Mass/Vol] 9.0 mg/dL Normal 8.6-10.3 [facility] Comment on above: Performed By: #### H S TROP #### [facility] [address] [place] [address] [place] Chloride [Moles/Vol] 105 mmol/L Normal 98-107 [facility] Comment on above: Performed By: #### H S TROP #### [facility] [address] [place] [address] [place] CO2 [Moles/Vol] 26.0 mmol/L Normal 21.0-31.0 [facility] Comment on above: Performed By: #### H S TROP #### [facility] [address] [place] [address] [place] Creatinine [Mass/Vol] 0.79 mg/dL Normal 0.70-1.30 [facility] Comment on above: Performed By: #### H S TROP #### [facility] [address] [place] [address] [place] Creatinine Clr Calc Pharmacy 74.81 [facility] Comment on above: Result Comment: PERF ORMED BY: [place] [address] PATHOLOGIST MARKER MAKER DREW REAL M.D. Performed By: #### H S TROP #### [place] [address] [place] GFR/1.73 sq M.predicted MDRD (S/P/Bld) [Vol rate/Area] mL/min/{1.73_m2} [facility] Comment on above: Performed By: #### H S TROP #### [address] Glucose [Mass/Vol] 133 mg/dL High 70-100 [facility] Comment on above: Result Comment: [place] Glucose Reference Range is dependent on time and content of last meal. Glucose of more than 200 mg/dL in a nonstressed, ambulatory subject supports the diagnosis of Diabetes Mellitus. ADA recommended reference range Performed By: #### H S TROP #### [place] [address] [place] Potassium [Moles/Vol] 3.8 mmol/L Normal 3.5-5.1 [facility] Comment on above: Performed By: #### H S TROP #### [place] [address] [place] Sodium [Moles/Vol] 138 mmol/L Normal 136-145 [facility] Comment on above: Performed By: #### H S TROP #### [place] [address] [place] Urea nitrogen [Mass/Vol] 20 mg/dL Normal 7-25 [facility] Comment on above: Performed By: #### H S TROP #### [place] [address] [place] Basophils Auto (Bld) [#/Vol] Ordered By: Steven Zamora on 08-22-2022 Basophils (Bld) [#/Vol] 0.0 10*3/uL 0.0-0.2 [facility] Basophils/100 WBC Auto (Bld) Ordered By: Steven Zamora on 08-22-2022 Basophils/100 WBC (Bld) 0.3 % . [facility] Calcium [Mass/volume] in Ser um or PlasmaOrdered By: Steven Zamora on 08-22-2022 Calcium [Mass/Vol] 9.0 mg/dL 8.6-10.3 [facility] Carbon dioxide, total [Moles /volume] in Serum or PlasmaOrdered By: Steven Zamora on 08-22-2022 CO2 [Moles/Vol] 26.0 mmol/L 21.0-31.0 [facility] Chloride [Moles/volume] in S jamin or PlasmaOrdered By: Steven Zamora on 08-22-2022 Chloride [Moles/Vol] 105 mmol/L 98-107 [facility] Complete Blood Count Auto Di ffon 08-22-2022 Basophils (Bld) [#/Vol] 0.0 10*3/uL Normal 0.0-0.2 [facility] Comment on above: Result Comment: PERF ORMED BY: [place] [address] PATHOLOGIST MARKER MAKER DREW REAL M.D. Performed By: #### H S TROP #### [facility] [address] [place] [address] [place] Basophils/100 WBC (Bld) 0.3 % Normal . [facility] Comment on above: Performed By: #### H S TROP #### [facility] [address] [place] [address] [place] Eosinophils (Bld) [#/Vol] 0.1 10*3/uL Normal 0.0-0.45 [facility] Comment on above: Performed By: #### H S TROP #### [facility] [address] [place] [address] [place] Eosinophils/100 WBC (Bld) 1.6 % Normal . [facility] Comment on above: Performed By: #### H S TROP #### [facility] [address] Erythrocyte distribution width (RBC) [Ratio] 13.7 % Normal 12.0-14.8 [facility] Comment on above: Performed By: #### H S TROP #### [facility] [address] Hematocrit (Bld) [Volume fraction] 41.1 % Normal 38.8-50.0 [facility] Comment on above: Performed By: #### H S TROP #### [address] Hemoglobin (Bld) [Mass/Vol] 13.9 g/dL Normal 13.0-17.0 [facility] Comment on above: Performed By: #### H S TROP #### [address] Lymphocytes (Bld) [#/Vol] 1.4 10*3/uL Normal 1.00-4.8 [facility] Comment on above: Performed By: #### H S TROP #### [address] Lymphocytes/100 WBC (Bld) 15.9 % Normal . [facility] Comment on above: Performed By: #### H S TROP #### [address] MCH (RBC) [Entitic mass] 31.5 pg Normal 27.5-35.2 [facility] Comment on above: Performed By: #### H S TROP #### [address] MCV (RBC) [Entitic vol] 92.8 fL Normal 83.5-101 [facility] Comment on above: Performed By: #### H S TROP #### [address] Mean Corpuscular HGB Conc 33.9 g/dL Normal 32.5-35.6 [facility] Comment on above: Performed By: #### H S TROP #### [place] [address] Monocytes (Bld) [#/Vol] 0.9 10*3/uL High 0.0-0.8 [facility] Comment on above: Performed By: #### H S TROP #### [address] Monocytes/100 WBC (Bld) 9.7 % Normal . [facility] Comment on above: Performed By: #### H S TROP #### [address] Neutrophils (Bld) [#/Vol] 6.4 10*3/uL Normal 1.8-7.7 [facility] Comment on above: Performed By: #### H S TROP #### [address] Neutrophils/100 WBC (Bld) 72.5 % Normal . [facility] Comment on above: Performed By: #### H S TROP #### [address] NRBC% 0.1 /100{WBC} Normal 0-0.5 [facility] Comment on above: Performed By: #### H S TROP #### [address] Platelet mean volume (Bld) [Entitic vol] 9.6 fL Normal 6.6-10.1 [facility] Comment on above: Performed By: #### H S TROP #### [address] Platelets (Bld) [#/Vol] 162 10*3/uL Normal 150-450 [facility] Comment on above: Performed By: #### H S TROP #### [place] [address] [place] RBC (Bld) [#/Vol] 4.43 10*6/uL Normal 3.90-5.60 [facility] Comment on above: Performed By: #### H S TROP #### [place] [address] [place] WBC (Bld) [#/Vol] 8.8 10*3/uL Normal 4.1-10.5 [facility] Comment on above: Performed By: #### H S TROP #### [address] Creatinine [Mass/volume] in Serum or PlasmaOrdered By: Steven Zamora on 08-22-2022 Creatinine [Mass/Vol] 0.79 mg/dL 0.70-1.30 [facility] ECG 12 lead ECGon 08-22-2022 ECG 12 lead ECG [facility] [place] [address] Electrocardiograph Report Signed Patient: Olaf Briones MR#: [id number] [birth year] : 1945 Acct:[id number] Age/Sex: 77 / M ADM Date: 08/20/22 Loc: Room: [address] [place] [address] Type: ADM IN Attending Dr: Steven Zamora [...] Signed By Joshua Atwood DO 08/22 0906 [facility] ECH echo transthoracicon ECH echo transthoracic [facility] Main [place] [id number] Echocardiogram Signed Patient: Olaf Briones MR#: [id number] 2 : 1945 Acct:[id number] Age/Sex: 77 / M ADM Date: 08/20/22 Loc: Room: 5F8762-2 Type: ADM IN Attending Dr: Steven Zamora [...] 08/22/22 0837 Signed By: Rojas Resendiz MD, [facility] 08/22/22 1514 Normal [facility] Eosinophils Auto (Bld) [#/Vo l]Ordered By: Steven Zamora on 08-22-2022 Eosinophils (Bld) [#/Vol] 0.1 10*3/uL 0.0-0.45 [facility] Eosinophils/100 WBC Auto (Bl d)Ordered By: Steven Zamora on 08-22-2022 Eosinophils/100 WBC (Bld) 1.6 % . [facility] Erythrocyte distribution wid th Auto (RBC) [Ratio]Ordered By: Steven Zamora on 08-22-2022 Erythrocyte distribution width (RBC) [Ratio] 13.7 % 12.0-14.8 [facility] Glucose [Mass/volume] in Ser um or PlasmaOrdered By: Steven Zamora on 08-22-2022 Glucose [Mass/Vol] 133 mg/dL 70-100 [facility] Comment on above: ADA recommended refe rence rangeRandom Glucose Reference Range is dependent on time and content of last meal. Glucose of more than 200 mg/dL in a nonstressed, ambulatory subject supports the diagnosis of Diabetes Mellitus. Hematocrit Auto (Bld) [Volum e fraction]Ordered By: Steven Zamora on 08-22-2022 Hematocrit (Bld) [Volume fraction] 41.1 % 38.8-50.0 [facility] Hemoglobin [Mass/volume] in BloodOrdered By: Steven Zamora on 08-22-2022 Hemoglobin (Bld) [Mass/Vol] 13.9 g/dL 13.0-17.0 [facility] Leukocytes [#/volume] correc betty for nucleated erythrocytes in Blood by Automated counOrdered By: Steven Zamora on 08-22-2022 WBC corrected for nucl RBC Auto (Bld) [#/Vol] 8.8 10*3/uL 4.1-10.5 [facility] Lymphocytes Auto (Bld) [#/Vo l]Ordered By: Steven Zamora on 08-22-2022 Lymphocytes (Bld) [#/Vol] 1.4 10*3/uL 1.00-4.8 [facility] Lymphocytes/100 WBC Auto (Bl d)Ordered By: Steven Zamora on 08-22-2022 Lymphocytes/100 WBC (Bld) 15.9 % . [facility] MCH Auto (RBC) [Entitic mass ]Ordered By: Steven Zamora on 08-22-2022 MCH (RBC) [Entitic mass] 31.5 pg 27.5-35.2 [facility] MCHC Auto (RBC) [Mass/Vol]Or dered By: Steven Zamora on 08-22-2022 MCHC (RBC) [Mass/Vol] 33.9 g/dL 32.5-35.6 [facility] MCV Auto (RBC) [Entitic vol] Ordered By: Steven Zamora on 08-22-2022 MCV (RBC) [Entitic vol] 92.8 fL 83.5-101 [facility] Monocytes Auto (Bld) [#/Vol] Ordered By: Steven Zamora on 08-22-2022 Monocytes (Bld) [#/Vol] 0.9 10*3/uL 0.0-0.8 [facility] Monocytes/100 WBC Auto (Bld) Ordered By: Steven Zamora on 08-22-2022 Monocytes/100 WBC (Bld) 9.7 % . [facility] Neutrophils Auto (Bld) [#/Vo l]Ordered By: Steven Zamora on 08-22-2022 Neutrophils (Bld) [#/Vol] 6.4 10*3/uL 1.8-7.7 [facility] Neutrophils/100 WBC Auto (Bl d)Ordered By: Steven Zamora on 08-22-2022 Neutrophils/100 WBC (Bld) 72.5 % . [facility] No Panel InformationOrdered By: Steven Zamora on 08-22-2022 Estimated GFR (CKD-EPI) > 60.0 mL/Min [facility] Creatinine Clearance (Chem 74.81 [facility] No Panel Informationon 08-22 0.0\S\0.0 Normal 0.0-0.2 [facility]Sandu eduardo 250 DO Work Phone: Comment on above: PERFORMED BY:[facility] [place], [place] [phone] MEDICAL DIRECTORDREW REAL M.D. 0.1\S\0.1 Normal 0-0.5 [facility] 250 DO Work Phone: 0.9\S\0.9 above high threshold 0.0-0.8 [facility]ardo 250 DO Work Phone: [phone] 1.4\S\1.4 Normal 1.00-4.8 [facility] ed[facility]ardo 250 DO Work Phone: [phone] 6.4\S\6.4 Normal 1.8-7.7 [facility] ed[address]ardo 250 DO Work Phone: [phone] 0.3\S\0.3 Normal . [facility]ardo 250 DO Work Phone: [phone] 1.6\S\1.6 Normal . [facility]ardo 250 DO Work Phone: [phone] 9.7\S\9.7 Normal . [facility]ardo 250 DO Work Phone: 15.9\S\15.9 Normal . [facility]ardo 250 DO Work Phone: [phone] 72.5\S\72.5 Normal . [facility]ardo 250 DO Work Phone: [phone] 9.6\S\9.6 Normal 6.6-10.1 [facility] ed[facility]ardo 250 DO Work Phone: [phone] 162\S\162 Normal 150-450 [facility] ed[facility]ardo 250 DO Work Phone: [phone] 13.7\S\13.7 Normal 12.0-14.8 [facility] ed[facility]ardo 250 DO Work Phone: [phone] 33.9\S\33.9 Normal 32.5-35.6 [facility] eduardo 250 DO Work Phone: [phone] 31.5\S\31.5 Normal 27.5-35.2 [facility] Work Phone: [phone] 92.8\S\92.8 Normal 83.5-101 [facility]Sandu eduardo 250 DO Work Phone: [phone] 41.1\S\41.1 Normal 38.8-50.0 [facility] Work Phone: [phone] 13.9\S\13.9 Normal 13.0-17.0 [facility] DO Work Phone: [phone] 4.43\S\4.43 Normal 3.90-5.60 [facility] Work Phone: [phone] 8.8\S\8.8 Normal 4.1-10.5 [facility] eduardo 250 DO Work Phone: [phone] > 60.0 Normal [facility] eduardo 250 DO Work Phone: [phone] 10.8\S\10.8 Normal 6.0-15.0 [facility] Work Phone: 74.81\S\74.81 Normal [facility] eduardo 250 DO Work Phone: Comment on above: PERFORMED BY:[facility] [place] [phone] MEDICAL DIRECTORDREW REAL M.D. 9.0\S\9.0 Normal 8.6-10.3 [facility] eduardo 250 DO Work Phone: 26.0\S\26.0 Normal 21.0-31.0 [facility] eduardo 250 DO Work Phone: 105\S\105 Normal 98-107 [facility] eduardo 250 DO Work Phone: 3.8\S\3.8 Normal 3.5-5.1 [facility] eduardo 250 DO Work Phone: 138\S\138 Normal 136-145 [facility] eduardo 250 DO Work Phone: 0.79\S\0.79 Normal 0.70-1.30 [facility] eduardo 250 DO Work Phone: 20\S\20 Normal 7-25 [facility]Cam[place] de souzay 250 DO Work Phone: 133\S\133 above high threshold 70-100 [facility] HeartYuanVCamacho eduardo 250 DO Work Phone: Comment on [...] RBC Auto Ql (Bld) 0.1 /100{WBC} 0-0.5 [facility] Platelet mean volume Auto (B ld) [Entitic vol]Ordered By: Steven Zamora on 08-22-2022 Platelet mean volume (Bld) [Entitic vol] 9.6 fL 6.6-10.1 [facility] Platelets Auto (Bld) [#/Vol] Ordered By: Steven Zamora on 08-22-2022 Platelets (Bld) [#/Vol] 162 10*3/uL 150-450 [facility] Potassium [Moles/volume] in Serum or PlasmaOrdered By: Steven Zamora on 08-22-2022 Potassium [Moles/Vol] 3.8 mmol/L 3.5-5.1 [facility] RBC Auto (Bld) [#/Vol]Ordere d By: Steven Zamora on 08-22-2022 RBC (Bld) [#/Vol] 4.43 10*6/uL 3.90-5.60 [facility] Serum or plasma anion gap de terminationOrdered By: Steven Zamora on 08-22-2022 Anion gap [Moles/Vol] 10.8 mmol/L 6.0-15.0 [facility] Sodium [Moles/volume] in Ser um or PlasmaOrdered By: Steven Zamora on 08-22-2022 Sodium [Moles/Vol] 138 mmol/L 136-145 [facility] Urea nitrogen [Mass/volume] in Serum or PlasmaOrdered By: Steven Zamora on 08-22-2022 Urea nitrogen [Mass/Vol] 20 mg/dL 7-25 [facility] WBC Auto (Bld) [#/Vol]Ordere d By: Steven Zamora on 08-22-2022 WBC (Bld) [#/Vol] 8.8 10*3/uL 4.1-10.5 [facility] Basic Metabolic Panelon Anion gap [Moles/Vol] 11.7 mmol/L Normal 6.0-15.0 [facility] Comment on above: Performed By: #### H S TROP #### [address] Calcium [Mass/Vol] 9.4 mg/dL Normal 8.6-10.3 [facility] Comment on above: Performed By: #### H S TROP #### [facility] [address] [place] [address] [place] Chloride [Moles/Vol] 103 mmol/L Normal 98-107 [facility] Comment on above: Performed By: #### H S TROP #### [facility] [address] [place] [address] [place] CO2 [Moles/Vol] 27.1 mmol/L Normal 21.0-31.0 [facility] Comment on above: Performed By: #### H S TROP #### [facility] [address] [place] [address] [place] Creatinine [Mass/Vol] 0.71 mg/dL Normal 0.70-1.30 [facility] Comment on above: Performed By: #### H S TROP #### [place] [address] [place] Creatinine Clr Calc Pharmacy 74.81 [facility] Comment on above: Performed By: #### H S TROP #### [place] [address] [place] GFR/1.73 sq M.predicted MDRD (S/P/Bld) [Vol rate/Area] mL/min/{1.73_m2} [facility] Comment on above: Performed By: #### H S TROP #### [place] [address] [place] Glucose [Mass/Vol] 162 mg/dL High 70-100 [facility] Comment on above: Result Comment: [place] Glucose Reference Range is dependent on time and content of last meal. Glucose of more than 200 mg/dL in a nonstressed, ambulatory subject supports the diagnosis of Diabetes Mellitus. ADA recommended reference range Performed By: #### H S TROP #### [facility] [address] [place] [address] [place] Potassium [Moles/Vol] 3.8 mmol/L Normal 3.5-5.1 [facility] Comment on above: Performed By: #### H S TROP #### [place] [address] [place] Sodium [Moles/Vol] 138 mmol/L Normal 136-145 [facility] Comment on above: Performed By: #### H S TROP #### [facility] [address] [place] [address] [place] Urea nitrogen [Mass/Vol] 12 mg/dL Normal 7-25 [facility] Comment on above: Performed By: #### H S TROP #### [facility] [address] [place] [address] [place] Cholesterol [Mass/volume] in Serum or PlasmaOrdered By: Steven Zamora on 08-21-2022 Cholesterol [Mass/Vol] 132 mg/dL 140-200 [facility] Comment on above: Chol less than 200 m g/dl low riskChol 201-239 mg/dl borderline riskChol 240 mg/dl and greater high risk Cholesterol in LDL Calc [Mas s/Vol]Ordered By: Steven Zamora on 08-21-2022 Cholesterol in LDL [Mass/Vol] 62 mg/dL 0-100 [facility] Comment on above: LDL ATP III CLASSIFI CATIONLDL less than 100 mg/dL OptimalLDL 100-129 mg/dL Near or above optimalLDL 130-159 mg/dL Borderline highLDL 160-189 mg/dL HighLDL greater than 189 mg/dL Very high Cholesterol in VLDL Calc [Ma ss/Vol]Ordered By: Steven Zamora on 08-21-2022 Cholesterol in VLDL [Mass/Vol] 24 mg/dL [facility] Complete Blood Count Auto Di ffon 08-21-2022 Basophils (Bld) [#/Vol] 0.0 10*3/uL Normal 0.0-0.2 [facility] Comment on above: Result Comment: PERF ORMED BY: [place] [address] PATHOLOGIST MARKER MAKER DREW REAL M.D. Performed By: #### H S TROP #### [facility] [address] [place] [address] [place] Basophils/100 WBC (Bld) 0.2 % Normal . [facility] Comment on above: Performed By: #### H S TROP #### [facility] [address] [place] [address] [place] Eosinophils (Bld) [#/Vol] 0.0 10*3/uL Normal 0.0-0.45 [facility] Comment on above: Performed By: #### H S TROP #### [address] Eosinophils/100 WBC (Bld) 0.1 % Normal . [facility] Comment on above: Performed By: #### H S TROP #### [address] Erythrocyte distribution width (RBC) [Ratio] 13.5 % Normal 12.0-14.8 [facility] Comment on above: Performed By: #### H S TROP #### [address] Hematocrit (Bld) [Volume fraction] 42.7 % Normal 38.8-50.0 [facility] Comment on above: Performed By: #### H S TROP #### [address] Hemoglobin (Bld) [Mass/Vol] 14.6 g/dL Normal 13.0-17.0 [facility] Comment on above: Performed By: #### H S TROP #### [address] Lymphocytes (Bld) [#/Vol] 1.1 10*3/uL Normal 1.00-4.8 [facility] Comment on above: Performed By: #### H S TROP #### [address] Lymphocytes/100 WBC (Bld) 8.2 % Normal . [facility] Comment on above: Performed By: #### H S TROP #### [address] MCH (RBC) [Entitic mass] 31.4 pg Normal 27.5-35.2 [facility] Comment on above: Performed By: #### H S TROP #### [address] MCV (RBC) [Entitic vol] 91.6 fL Normal 83.5-101 [facility] Comment on above: Performed By: #### H S TROP #### [facility] [address] Mean Corpuscular HGB Conc 34.3 g/dL Normal 32.5-35.6 [facility] Comment on above: Performed By: #### H S TROP #### [facility] [address] [place] [address] [place] Monocytes (Bld) [#/Vol] 0.8 10*3/uL Normal 0.0-0.8 [facility] Comment on above: Performed By: #### H S TROP #### [place] [address] [place] Monocytes/100 WBC (Bld) 6.1 % Normal . [facility] Comment on above: Performed By: #### H S TROP #### [address] Neutrophils (Bld) [#/Vol] 11.7 10*3/uL High 1.8-7.7 [facility] Comment on above: Performed By: #### H S TROP #### [place] [address] [place] Neutrophils/100 WBC (Bld) 85.4 % Normal . [facility] Comment on above: Performed By: #### H S TROP #### [place] [address] [place] NRBC% 0.0 /100{WBC} Normal 0-0.5 [facility] Comment on above: Performed By: #### H S TROP #### [place] [address] [place] Platelet mean volume (Bld) [Entitic vol] 9.5 fL Normal 6.6-10.1 [facility] Comment on above: Performed By: #### H S TROP #### [facility] [address] [place] [address] Platelets (Bld) [#/Vol] 171 10*3/uL Normal 150-450 [facility] Comment on above: Performed By: #### H S TROP #### [facility] [address] [place] [address] [place] RBC (Bld) [#/Vol] 4.66 10*6/uL Normal 3.90-5.60 [facility] Comment on above: Performed By: #### H S TROP #### [facility] [address] [place] [id number] [facility] WBC (Bld) [#/Vol] 13.6 10*3/uL High 4.1-10.5 [facility] Comment on above: Performed By: #### H S TROP #### [facility] [address] ECG 12 lead ECGon 08-21-2022 ECG 12 lead ECG [facility] [place] [address] [place] [address] Electrocardiograph Report Signed Patient: Olaf Briones MR#: [id number] 2 : 1945 Acct:[id number] Age/Sex: 77 / M ADM Date: 08/20/22 Loc: Room: [address] [place] [address] Type: REG SDC Attending Dr: Steven Zamora [...] By Joshua Atwood DO 08/21 0917 Normal [facility] Glucose Glucometer (BldC) [M ass/Vol]Ordered By: Steven Zamora on 08-21-2022 Glucose [Mass/Vol] 121 mg/dL [facility] Comment on above: Random Glucose Refer ence Range is dependent on time and content of last meal. Glucose of more than 200 mg/dL in a nonstressed, ambulatory subject supports the diagnosis of Diabetes Mellitus. Glucose Poct Glucometerson 0 08-21-2022 Commemt1 Glu2: [facility] Comment on above: Result Comment: PERF ORMED BY: [place] [address] PATHOLOGIST MARKER MAKER DREW REAL M.D. Performed By: #### H S TROP #### [address] Glucose [Mass/Vol] 121 mg/dL Normal [facility] Comment on above: Result Comment: [place] om Glucose Reference Range is dependent on time and content of last meal. Glucose of more than 200 mg/dL in a nonstressed, ambulatory subject supports the diagnosis of Diabetes Mellitus. Performed By: #### H S TROP #### [address] Commemt1 Glu2: [facility] Comment on above: Result Comment: PERF ORMED BY: [place] [address] PATHOLOGIST MARKER MAKER DREW REAL M.D. Performed By: #### H S TROP #### [address] Glucose [Mass/Vol] 137 mg/dL Normal [facility] Comment on above: Result Comment: [place] om Glucose Reference Range is dependent on time and content of last meal. Glucose of more than 200 mg/dL in a nonstressed, ambulatory subject supports the diagnosis of Diabetes Mellitus. Performed By: #### H S TROP #### [address] Laboratory - Chemistry and C hemistry - challengeon 08-21-2022 Cholesterol [Mass/Vol] 132\S\132 below low threshold 140-200 [facility] Heart-Sandu eduardo 250 DO Work Phone: Comment on above: Chol less than 200 m g/dl low risk Chol 201-239 mg/dl borderline risk Chol 240 mg/dl and greater high risk Cholesterol in LDL [Mass/Vol] 62\S\62 Normal 0-100 -[facility] Heart-Sandu eduardo 250 DO Work Phone: Comment on above: LDL ATP III CLASSIFI CATION LDL less than 100 mg/dL Optimal LDL 100-129 mg/dL Near or above optimal LDL 130-159 mg/dL Borderline high LDL 160-189 mg/dL High LDL greater than 189 mg/dL Very high Lipid Panelon 08-21-2022 Cholesterol [Mass/Vol] 132 mg/dL Low 140-200 [facility] Comment on above: Result Comment: Chol less than 200 mg/dl low risk Chol 201-239 mg/dl borderline risk Chol 240 mg/dl and greater high risk Performed By: #### H S TROP #### [facility] [address] [id number] [place] Cholesterol in HDL [Mass/Vol] 45 mg/dL Normal 23-92 [facility] Comment on above: Result Comment: HDL CHOL ATP-III CLASSIFICATION Cardiovascular Risk HDL > or equal to 60 mg/dL LOW HDL < 40 mg/dL HIGH Performed By: #### H S TROP #### [facility] [address] [id number] [place] Cholesterol.total/Reny sterol in HDL [Mass ratio] 2.9 {ratio} Normal <5.0 [facility] Comment on above: Result Comment: PERF ORMED BY: [facility] [address] [place] [address] PATHOLOGIST MARKER MAKER DREW REAL M.D. Performed By: #### H S TROP #### [facility] [address] [id number] [place] LDL Cholesterol,Calculated 62 mg/dL Normal 0-100 [facility] Comment on above: Result Comment: LDL ATP III CLASSIFICATION LDL less than 100 mg/dL Optimal LDL 100-129 mg/dL Near or above optimal LDL 130-159 mg/dL Borderline high LDL 160-189 mg/dL High LDL greater than 189 mg/dL Very high Performed By: #### H S TROP #### [facility] [address] Triglyceride w/Reflex 124 mg/dL Normal 0-149 [facility] Comment on above: Result Comment: TRIG ATP III CLASSIFICATION TRIG less than 150 mg/dL Normal TRIG 150-199 mg/dL Borderline high TRIG 200-500 mg/dL High TRIG greater than 500 mg/dL Very high Standard traceable to the Center for Disease Conrtrol and Prevention (CDC) test method. Performed By: #### H S TROP #### [facility] [address] VLDL CHOLESTEROL 24 mg/dL Normal [facility] Comment on above: Performed By: #### H S TROP #### [facility] [address] No Panel InformationOrdered By: Steven Zamora on 08-21-2022 Bedside Glucose Comment Glu2: cleaned meter [facility] No Panel Informationon 08-21 Glu2: Cleaned Meter Normal [facility]-Sandu eduardo 250 DO Work Phone: Comment on above: PERFORMED BY:[address] [place] [address] [place] [place], [place] [phone] MEDICAL DIRECTORDREW REAL M.D. 121\S\121 Normal [facility] Heart-Sandu eduardo 250 DO Work Phone: Comment on above: Random Glucose Refer ence Range is dependent on time and content of last meal. Glucose of more than 200 mg/dL in a nonstressed, ambulatory subject supports the diagnosis of Diabetes Mellitus. Glu2: Cleaned Meter Normal [facility]-Sandu eduardo 250 DO Work Phone: Comment on above: PERFORMED BY:[address] [address] [address] [place], [place] [phone] MEDICAL DIRECTORDREW REAL M.D. 137\S\137 Normal [facility] Heart-Sandu eduardo 250 DO Work Phone: Comment on above: Random Glucose Refer ence Range is dependent on time and content of last meal. Glucose of more than 200 mg/dL in a nonstressed, ambulatory subject supports the diagnosis of Diabetes Mellitus. 0.0\S\0.0 Normal 0-0.5 -[facility]-[place] eduardo 250 DO Work Phone: [phone] Comment on above: PERFORMED BY:[facility] [place], [place] [phone] MEDICAL DIRECTORDREW REAL M.D. 0.8\S\0.8 Normal 0.0-0.8 [facility] Heart-[place]and[place] eduarod 250 DO Work Phone: [phone] 1.1\S\1.1 Normal 1.00-4.8 -[facility] Heart-[place]and[place] eduardo 250 DO Work Phone: [phone] 11.7\S\11.7 Normal 6.0-15.0 [facility]-[place] eduardo 250 DO Work Phone: [phone] 0.2\S\0.2 Normal . [facility] eduardo 250 DO Work Phone: [phone] 0.1\S\0.1 Normal . [facility]-[place] eduardo 250 DO Work Phone: [phone] 6.1\S\6.1 Normal . [facility]-[place] eudardo 250 DO Work Phone: [phone] 8.2\S\8.2 Normal . [facility]-[place] eduardo 250 DO Work Phone: [phone] 85.4\S\85.4 Normal . [facility] Heart-Sandu eduardo 250 DO Work Phone: [phone] 9.5\S\9.5 Normal 6.6-10.1 [facility]-[place] eduardo 250 DO Work Phone: [phone] 171\S\171 Normal 150-450 [facility]-[place] eduardo 250 DO Work Phone: [phone] 13.5\S\13.5 Normal 12.0-14.8 [facility]-[place] eduardo 250 DO Work Phone: [phone] 34.3\S\34.3 Normal 32.5-35.6 [facility] eduardo 250 DO Work Phone: [phone] 31.4\S\31.4 Normal 27.5-35.2 [facility]-[place] eduardo 250 DO Work Phone: [phone] 91.6\S\91.6 Normal 83.5-101 [facility]-[place] eduardo 250 DO Work Phone: [phone] 42.7\S\42.7 Normal 38.8-50.0 [facility]-[place]and[place] eduardo 250 DO Work Phone: [phone] 14.6\S\14.6 Normal 13.0-17.0 [facility] eduardo 250 DO Work Phone: [phone] 4.66\S\4.66 Normal 3.90-5.60 [facility] eduardo 250 DO Work Phone: [phone] 13.6\S\13.6 above high threshold 4.1-10.5 [facility]-[place] eduardo 250 DO Work Phone: [phone] > 60.[address] [facility] eduardo 250 DO Work Phone: [phone] 74.81\S\74.[address] [facility] eduardo 250 DO Work Phone: [phone] 9.4\S\9.4 Normal 8.6-10.3 [facility] Work Phone: [phone] 27.1\S\27.1 Normal 21.0-31.0 [facility] DO Work Phone: [phone] 103\S\103 Normal 98-107 [facility] Heart-Nandau eduardo 250 DO Work Phone: [phone] 3.8\S\3.8 Normal 3.5-5.1 [facility] DO Work Phone: 138\S\138 Normal 136-145 [facility] Carter clark 250 DO Work Phone: 0.71\S\0.71 Normal 0.70-1.30 [facility] Carter Adams DO Work Phone: 12\S\12 Normal 7-25 [facility] Carter clark 250 DO Work Phone: 162\S\162 above high threshold 70-100 [facility] Carter Adams DO Work Phone: Comment on above: Random Glucose Refer ence Range is dependent on time and content of last meal. Glucose of more than 200 mg/dL in a nonstressed, ambulatory subject supports the diagnosis of Diabetes Mellitus. ADA recommended reference range 2.9\S\2.9 Normal <5.0 [facility] Catrer Adams DO Work Phone: Comment on above: PERFORMED BY:[facility] [place], [place] [phone] MEDICAL DIRECTORDREW REAL M.D. 24\S\24 Normal [facility] Carter Adams DO Work Phone: 124\S\124 Normal 0-149 [facility] Carter Adams DO Work Phone: Comment on above: TRIG ATP III CLASSIF ICATION TRIG less than 150 mg/dL Normal TRIG 150-199 mg/dL Borderline high TRIG 200-500 mg/dL High TRIG greater than 500 mg/dL Very high Standard traceable to the Center for Disease Conrtrol and Prevention (CDC) test method. 45\S\45 Normal 23-92 [facility] Carter Adams DO Work Phone: Comment on above: HDL CHOL ATP-III CLA SSIFICATION Cardiovascular Risk HDL > or equal to 60 mg/dL LOW HDL < 40 mg/dL HIGH 33877.9\S\97357.9 Critically high 0.0-20.0 [facility] 250 DO Work Phone: Comment on above: Critical Result : Ca lled to and read back by: MARC BUSTILLOS at: 08/21/2022 06:30:29 by:[id number] BY:[address] [place], [place] [phone] MEDICAL DIRECTORDREW REAL M.D. 84552.9\S\98537.9 Critically high 0.0-20.0 [facility] 250 DO Work Phone: Comment on above: Critical Result : Ca lled to and read back by: RIDGE WATERS at: 08/21/2022 04:23:36 by:[id number] BY:[address] [place], [place] [phone] MEDICAL DIRECTORDREW REAL M.D. 24934.3\S\39977.3 Critically high 0.0-20.0 [facility] 250 DO Work Phone: Comment on above: Critical Result : Ca lled to and read back by: SALLY BUSTILLOS at: 08/21/2022 00:52:26 by:[id number] BY:[address] [address] [address] [place], [place] [phone] MEDICAL DIRECTORDREW REAL M.D. Serum or plasma high density lipoprotein (HDL) cholesterol measurementOrdered By: Steven Zamora on 08-21-2022 Cholesterol in HDL [Mass/Vol] 45 mg/dL 23- [facility] Comment on above: HDL CHOL ATP-III CLA SSIFICATION Cardiovascular RiskHDL > or equal to 60 mg/dL LOWHDL < 40 mg/dL HIGH Serum or plasma total choles terol/high density lipoprotein (HDL) cholesterol mass ratOrdered By: Steven Zamora on 08-21-2022 Cholesterol.total/Reny sterol in HDL [Mass ratio] 2.9 {ratio} <5.0 [facility] Triglyceride [Mass/volume] i n Serum or PlasmaOrdered By: Steven Zamora on 08-21-2022 Triglyceride [Mass/Vol] 124 mg/dL 0-149 [facility] Comment on above: TRIG ATP III CLASSIF ICATIONTRIG less than 150 mg/dL NormalTRIG 150-199 mg/dL Borderline highTRIG 200-500 mg/dL High TRIG greater than 500 mg/dL Very highStandard traceable to the Center for Disease Conrtrol and Prevention (CDC) test method. Troponin I High Sensitivityo n 08-21-2022 Troponin I High Sensitivity 22234.9 pg/mL Off scale high 0.0-20.0 [facility] Comment on above: Result Comment: Crit ical Result : Called to and read back by: MARC BUSTILLOS at: 08/21/2022 06:30:29 by:[id number] PERFORMED BY: [place] [address] PATHOLOGIST MARKER MAKER DREW REAL M.D. Performed By: #### H S TROP #### [facility] [address] [place] [address] Troponin I High Sensitivity 59762.9 pg/mL Off scale high 0.0-20.0 [facility] Comment on above: Result Comment: Crit ical Result : Called to and read back by: RIDGE WATERS at: 08/21/2022 04:23:36 by:[id number] PERFORMED BY: [place] [address] PATHOLOGIST MARKER MAKER DREW REAL M.D. Performed By: #### H S TROP #### [facility] [address] [place] [address] Troponin I High Sensitivity 00531.3 pg/mL Off scale high 0.0-20.0 [facility] Comment on above: Result Comment: Crit ical Result : Called to and read back by: SALLY BUSTILLOS at: 08/21/2022 00:52:26 by:[id number] PERFORMED BY: [place] [address] PATHOLOGIST MARKER MAKER DREW REAL M.D. Performed By: #### H S TROP #### [facility] [address] Troponin I.cardiac [Mass/vol ume] in Serum or Plasma by Detection limit <= 0.01 ng/Ordered By: Steven Zamora on 08-21-2022 Troponin I.cardiac DL <= 0.01 ng/mL [Mass/Vol] 05142.9 pg/mL 0.0-20.0 [facility] Comment on above: Critical Result : Ca lled to and read back by: MARC BUSTILLOS at: 08/21/2022 06:30:29 by:[id number] Activated partial thrombopla stin time (aPTT) in platelet poor plasma by coagulation aOrdered By: Cirilo Wise on 08-20-2022 aPTT Coag (PPP) [Time] 25.1 s 25.1-36.5 [facility] B-Type Natriuretic Peptideon 08-20-2022 Natriuretic peptide B (Bld) [Mass/Vol] 24.0 pg/mL Normal 5-100 [facility] Comment on above: Result Comment: PERF ORMED BY: [place] [address] PATHOLOGIST MARKER MAKER DREW REAL M.D. Performed By: #### B TMD TEACHER, CK, CBC, HS TROP, BMP, PT, PTT #### [address] Basic Metabolic Panelon 070 Anion gap [Moles/Vol] 14.1 mmol/L Normal 6.0-15.0 [facility] Comment on above: Performed By: #### B TMD TEACHER, CK, CBC, HS TROP, BMP, PT, PTT #### [facility] [address] Calcium [Mass/Vol] 9.4 mg/dL Normal 8.6-10.3 [facility] Comment on above: Performed By: #### B TMD TEACHER, CK, CBC, HS TROP, BMP, PT, PTT #### [address] Chloride [Moles/Vol] 105 mmol/L Normal 98-107 [facility] Comment on above: Performed By: #### B TMD TEACHER, CK, CBC, HS TROP, BMP, PT, PTT #### [facility] [address] CO2 [Moles/Vol] 24.3 mmol/L Normal 21.0-31.0 [facility] Comment on above: Performed By: #### B TMD TEACHER, CK, CBC, HS TROP, BMP, PT, PTT #### [facility] [address] Creatinine [Mass/Vol] 0.92 mg/dL Normal 0.70-1.30 [facility] Comment on above: Performed By: #### B TMD TEACHER, CK, CBC, HS TROP, BMP, PT, PTT #### [facility] [address] Creatinine Clr Calc Pharmacy 65.05 [facility] Comment on above: Result Comment: PERF ORMED BY: [place] [address] PATHOLOGIST MARKER MAKER DREW REAL M.D. Performed By: #### B TMD TEACHER, CK, CBC, HS TROP, BMP, PT, PTT #### [address] GFR/1.73 sq M.predicted MDRD (S/P/Bld) [Vol rate/Area] mL/min/{1.73_m2} [facility] Comment on above: Performed By: #### B TMD TEACHER, CK, CBC, HS TROP, BMP, PT, PTT #### [facility] [address] Glucose [Mass/Vol] 172 mg/dL High 70-100 [facility] Comment on above: Result Comment: [place] Glucose Reference Range is dependent on time and content of last meal. Glucose of more than 200 mg/dL in a nonstressed, ambulatory subject supports the diagnosis of Diabetes Mellitus. ADA recommended reference range Performed By: #### B TMD TEACHER, CK, CBC, HS TROP, BMP, PT, PTT #### [address] Potassium [Moles/Vol] 3.4 mmol/L Low 3.5-5.1 [facility] Comment on above: Performed By: #### B TMD TEACHER, CK, CBC, HS TROP, BMP, PT, PTT #### [facility] [address] Sodium [Moles/Vol] 140 mmol/L Normal 136-145 [facility] Comment on above: Performed By: #### B TMD TEACHER, CK, CBC, HS TROP, BMP, PT, PTT #### [facility] [address] Urea nitrogen [Mass/Vol] 15 mg/dL Normal 7-25 [facility] Comment on above: Performed By: #### B TMD TEACHER, CK, CBC, HS TROP, BMP, PT, PTT #### [facility] [address] Basophils Auto (Bld) [#/Vol] Ordered By: Cirilo Wise on 08-20-2022 Basophils (Bld) [#/Vol] 0.1 10*3/uL 0.0-0.2 [facility] Basophils/100 WBC Auto (Bld) Ordered By: Cirilo Wise on 08-20-2022 Basophils/100 WBC (Bld) 0.5 % . [facility] Calcium [Mass/volume] in Ser um or PlasmaOrdered By: Cirilo Wise on 08-20-2022 Calcium [Mass/Vol] 9.4 mg/dL 8.6-10.3 [facility] Carbon dioxide, total [Moles /volume] in Serum or PlasmaOrdered By: Cirilo Wise on 08-20-2022 CO2 [Moles/Vol] 24.3 mmol/L 21.0-31.0 [facility] Chloride [Moles/volume] in S jamin or PlasmaOrdered By: Cirilo Wise on 08-20-2022 Chloride [Moles/Vol] 105 mmol/L 98-107 [facility] Complete Blood Count Auto Di ffon 08-20-2022 Basophils (Bld) [#/Vol] 0.1 10*3/uL Normal 0.0-0.2 [facility] Comment on above: Result Comment: PERF ORMED BY: [place] [address] PATHOLOGIST MARKER MAKER DREW REAL M.D. Performed By: #### B TMD TEACHER, CK, CBC, HS TROP, BMP, PT, PTT #### [address] Basophils/100 WBC (Bld) 0.5 % Normal . [facility] Comment on above: Performed By: #### B TMD TEACHER, CK, CBC, HS TROP, BMP, PT, PTT #### [address] Eosinophils (Bld) [#/Vol] 0.1 10*3/uL Normal 0.0-0.45 [facility] Comment on above: Performed By: #### B TMD TEACHER, CK, CBC, HS TROP, BMP, PT, PTT #### [address] Eosinophils/100 WBC (Bld) 1.3 % Normal . [facility] Comment on above: Performed By: #### B TMD TEACHER, CK, CBC, HS TROP, BMP, PT, PTT #### [address] Erythrocyte distribution width (RBC) [Ratio] 13.6 % Normal 12.0-14.8 [facility] Comment on above: Performed By: #### B TMD TEACHER, CK, CBC, HS TROP, BMP, PT, PTT #### [address] Hematocrit (Bld) [Volume fraction] 44.0 % Normal 38.8-50.0 [facility] Comment on above: Performed By: #### B TMD TEACHER, CK, CBC, HS TROP, BMP, PT, PTT #### [address] Hemoglobin (Bld) [Mass/Vol] 15.1 g/dL Normal 13.0-17.0 [facility] Comment on above: Performed By: #### B TMD TEACHER, CK, CBC, HS TROP, BMP, PT, PTT #### [address] Lymphocytes (Bld) [#/Vol] 2.8 10*3/uL Normal 1.00-4.8 [facility] Comment on above: Performed By: #### B TMD TEACHER, CK, CBC, HS TROP, BMP, PT, PTT #### [address] Lymphocytes/100 WBC (Bld) 26.2 % Normal . [facility] Comment on above: Performed By: #### B TMD TEACHER, CK, CBC, HS TROP, BMP, PT, PTT #### [address] MCH (RBC) [Entitic mass] 32.1 pg Normal 27.5-35.2 [facility] Comment on above: Performed By: #### B TMD TEACHER, CK, CBC, HS TROP, BMP, PT, PTT #### [address] MCV (RBC) [Entitic vol] 93.4 fL Normal 83.5-101 [facility] Comment on above: Performed By: #### B TMD TEACHER, CK, CBC, HS TROP, BMP, PT, PTT #### [address] Mean Corpuscular HGB Conc 34.4 g/dL Normal 32.5-35.6 [facility] Comment on above: Performed By: #### B TMD TEACHER, CK, CBC, HS TROP, BMP, PT, PTT #### [address] Monocytes (Bld) [#/Vol] 0.9 10*3/uL High 0.0-0.8 [facility] Comment on above: Performed By: #### B TMD TEACHER, CK, CBC, HS TROP, BMP, PT, PTT #### [address] Monocytes/100 WBC (Bld) 16.35 % Normal 0.00-20.00 [facility] Comment on above: Performed By: #### B TMD TEACHER, CK, CBC, HS TROP, BMP, PT, PTT #### [facility] [address] Monocytes/100 WBC (Bld) 7.9 % Normal . [facility] Comment on above: Performed By: #### B TMD TEACHER, CK, CBC, HS TROP, BMP, PT, PTT #### [facility] [address] Neutrophils (Bld) [#/Vol] 6.9 10*3/uL Normal 1.8-7.7 [facility] Comment on above: Performed By: #### B TMD TEACHER, CK, CBC, HS TROP, BMP, PT, PTT #### [facility] [address] Neutrophils/100 WBC (Bld) 64.1 % Normal . [facility] Comment on above: Performed By: #### B TMD TEACHER, CK, CBC, HS TROP, BMP, PT, PTT #### [address] NRBC% 0.1 /100{WBC} Normal 0-0.5 [facility] Comment on above: Performed By: #### B TMD TEACHER, CK, CBC, HS TROP, BMP, PT, PTT #### [address] Platelet mean volume (Bld) [Entitic vol] 9.7 fL Normal 6.6-10.1 [facility] Comment on above: Performed By: #### B TMD TEACHER, CK, CBC, HS TROP, BMP, PT, PTT #### [facility] [address] Platelets (Bld) [#/Vol] 215 10*3/uL Normal 150-450 [facility] Comment on above: Performed By: #### B TMD TEACHER, CK, CBC, HS TROP, BMP, PT, PTT #### [address] RBC (Bld) [#/Vol] 4.71 10*6/uL Normal 3.90-5.60 [facility] Comment on above: Performed By: #### B TMD TEACHER, CK, CBC, HS TROP, BMP, PT, PTT #### [address] WBC (Bld) [#/Vol] 10.7 10*3/uL High 4.1-10.5 [facility] Comment on above: Performed By: #### B TMD TEACHER, CK, CBC, HS TROP, BMP, PT, PTT #### [facility] [address] Creatine Kinaseon 08-20-2022 CK [Catalytic activity/Vol] 115 U/L Normal [facility] Comment on above: Performed By: #### B TMD TEACHER, CK, CBC, HS TROP, BMP, PT, PTT #### [address] Creatine kinase [Enzymatic a ctivity/volume] in Serum or PlasmaOrdered By: Cirilo Wise on 08-20-2022 CK [Catalytic activity/Vol] 115 U/L [facility] Creatinine [Mass/volume] in Serum or PlasmaOrdered By: Cirilo Wise on 08-20-2022 Creatinine [Mass/Vol] 0.92 mg/dL 0.70-1.30 [facility] ECG 12 lead ECGon 08-20-2022 ECG 12 lead ECG [facility] [place] [address] [place] [address] Electrocardiograph Report Signed Patient: Olaf Briones MR#: [id number] [birth year] : 1945 Acct:[id number] Age/Sex: 77 / M ADM Date: 08/20/22 Loc: Room: [address] [place] [address] Type: REG [facility] Attending Dr: Steven Zamora DO Ordering Provider: [...] , age undetermined Inferior injury pattern ACUTE MA / STEMI Consider right ventricular involvement in acute inferior infarct Abnormal ECG No previous ECGs available Confirmed by SHANNON COCHRAN DO ([id number]) on 08/21/2022 2:06:14 AM Referred By: Electronically Signed By:SHANNON COCHRAN DO Transcribed By: MUS Signed By Shannon Cochran DO 08/21 0206 Normal [facility] Eosinophils Auto (Bld) [#/Vo l]Ordered By: Cirilo Wise on 08-20-2022 Eosinophils (Bld) [#/Vol] 0.1 10*3/uL 0.0-0.45 [facility] Eosinophils/100 WBC Auto (Bl d)Ordered By: Cirilo Wise on 08-20-2022 Eosinophils/100 WBC (Bld) 1.3 % . [facility] Erythrocyte distribution wid th Auto (RBC) [Ratio]Ordered By: Cirilo Wise on 08-20-2022 Erythrocyte distribution width (RBC) [Ratio] 13.6 % 12.0-14.8 [facility] Glucose [Mass/volume] in Ser um or PlasmaOrdered By: Cirilo Wise on 08-20-2022 Glucose [Mass/Vol] 172 mg/dL 70-100 [facility] Comment on above: ADA recommended refe rence rangeRandom Glucose Reference Range is dependent on time and content of last meal. Glucose of more than 200 mg/dL in a nonstressed, ambulatory subject supports the diagnosis of Diabetes Mellitus. Hematocrit Auto (Bld) [Volum e fraction]Ordered By: Cirilo Wise on 08-20-2022 Hematocrit (Bld) [Volume fraction] 44.0 % 38.8-50.0 [facility] Hemoglobin [Mass/volume] in BloodOrdered By: Cirilo Wise on 08-20-2022 Hemoglobin (Bld) [Mass/Vol] 15.1 g/dL 13.0-17.0 [facility] Laboratory - CoagulationOrde red By: Cirilo Wise on 08-20-2022 PT Coag (PPP) [Time] 11.4 s 9.0-12.9 [facility] Leukocytes [#/volume] correc ebtty for nucleated erythrocytes in Blood by Automated counOrdered By: Cirilo Wise on 08-20-2022 WBC corrected for nucl RBC Auto (Bld) [#/Vol] 10.7 10*3/uL 4.1-10.5 [facility] Lymphocytes Auto (Bld) [#/Vo l]Ordered By: Cirilo Wise on 08-20-2022 Lymphocytes (Bld) [#/Vol] 2.8 10*3/uL 1.00-4.8 [facility] Lymphocytes/100 WBC Auto (Bl d)Ordered By: Cirilo Wise on 08-20-2022 Lymphocytes/100 WBC (Bld) 26.2 % . [facility] MCH Auto (RBC) [Entitic mass ]Ordered By: Cirilo Wise on 08-20-2022 MCH (RBC) [Entitic mass] 32.1 pg 27.5-35.2 [facility] MCHC Auto (RBC) [Mass/Vol]Or dered By: Cirilo Wise on 08-20-2022 MCHC (RBC) [Mass/Vol] 34.4 g/dL 32.5-35.6 [facility] MCV Auto (RBC) [Entitic vol] Ordered By: Cirilo Wise on 08-20-2022 MCV (RBC) [Entitic vol] 93.4 fL 83.5-101 [facility] Monocyte distribution width [Entitic volume] in Blood by AutomatedOrdered By: Cirilo Wise on 08-20-2022 Monocyte distribution width Auto (Bld) [Entitic vol] 16.35 % 0.00-20.00 [facility] Monocytes Auto (Bld) [#/Vol] Ordered By: Cirilo Wise on 08-20-2022 Monocytes (Bld) [#/Vol] 0.9 10*3/uL 0.0-0.8 [facility] Monocytes/100 WBC Auto (Bld) Ordered By: Cirilo Wise on 08-20-2022 Monocytes/100 WBC (Bld) 7.9 % . [facility] Natriuretic peptide B [Mass/ Vol]Ordered By: Cirilo Wise on 08-20-2022 Natriuretic peptide B (Bld) [Mass/Vol] 24.0 pg/mL 5-100 [facility] Neutrophils Auto (Bld) [#/Vo l]Ordered By: Cirilo Wise on 08-20-2022 Neutrophils (Bld) [#/Vol] 6.9 10*3/uL 1.8-7.7 [facility] Neutrophils/100 WBC Auto (Bl d)Ordered By: Cirilo Wise on 08-20-2022 Neutrophils/100 WBC (Bld) 64.1 % . [facility] No Panel Informationon 08-20 2529.3\S\2529.3 Critically high 0.0-20.0 [facility]Sandu eduardo 250 DO Work Phone: Comment on above: Critical Result : Ca lled to and read back by: ARY BUSTILLOS at: 08/20/2022 19:45:52 by:[id number] BY:[facility] [place], [place] [id number] MEDICAL DIRECTORDREW REAL M.D. No Panel InformationOrdered By: Cirilo Wise on 08-20-2022 Estimated GFR (CKD-EPI) > 60.0 mL/Min [facility] Creatinine Clearance (Chem 65.05 [facility] Nucleated erythrocytes [Pres ence] in Blood by Automated countOrdered By: Cirilo Wise on 08-20-2022 Nucleated RBC Auto Ql (Bld) 0.1 /100{WBC} 0-0.5 [facility] Partial Thromboplastin Timeo n 08-20-2022 aPTT Coag (Bld) [Time] 25.1 s Normal 25.1-36.5 [facility] Comment on above: Result Comment: PERF ORMED BY: [facility] [address] [place] [address] PATHOLOGIST MARKER MAKER DREW REAL M.D. Performed By: #### B TMD TEACHER, CK, CBC, HS TROP, BMP, PT, PTT #### [facility] [address] [place] [address] [facility] Platelet mean volume Auto (B ld) [Entitic vol]Ordered By: Cirilo Wise on 08-20-2022 Platelet mean volume (Bld) [Entitic vol] 9.7 fL 6.6-10.1 [facility] Platelet poor plasma interna tional normalized ratio (INR) by coagulation assay (relatOrdered By: Cirilo Wise on 08-20-2022 INR Coag (PPP) [Relative time] 1.0 {INR} [facility] Comment on above: INR Therapeutic Rang e [...] 08-20-2022 Platelets (Bld) [#/Vol] 215 10*3/uL 150-450 [facility] Potassium [Moles/volume] in Serum or PlasmaOrdered By: Cirilo Wise on 08-20-2022 Potassium [Moles/Vol] 3.4 mmol/L 3.5-5.1 [facility] Prothrombin Time INRon 08-20 INR Coag (PPP) [Relative time] 1.0 {INR} Normal [facility] Comment on above: Result Comment: INR Therapeutic [...] 3 - 4.5 Performed By: #### B TMD TEACHER, CK, CBC, HS TROP, BMP, PT, PTT #### [facility] [address] PT Coag (PPP) [Time] 11.4 s Normal 9.0-12.9 [facility] Comment on above: Performed By: #### B TMD TEACHER, CK, CBC, HS TROP, BMP, PT, PTT #### [facility] [address] [place] [address] [place] RBC Auto (Bld) [#/Vol]Ordere d By: Cirilo Wise on 08-20-2022 RBC (Bld) [#/Vol] 4.71 10*6/uL 3.90-5.60 [facility] Serum or plasma anion gap de terminationOrdered By: Cirilo Wise on 08-20-2022 Anion gap [Moles/Vol] 14.1 mmol/L 6.0-15.0 [facility] Sodium [Moles/volume] in Ser um or PlasmaOrdered By: Cirilo Wise on 08-20-2022 Sodium [Moles/Vol] 140 mmol/L 136-145 [facility] Troponin I High Sensitivityo n 08-20-2022 Troponin I High Sensitivity 9010.4 pg/mL Off scale high 0.0-20.0 [facility] Comment on above: Result Comment: Crit ical Result : Called to and read back by: ARY BUSTILLOS at: 08/20/2022 22:35:19 by:[id number] PERFORMED BY: [place] [address] PATHOLOGIST MARKER MAKER DREW REAL M.D. Performed By: #### H S TROP #### [facility] [address] [place] [address] Troponin I High Sensitivity 2529.3 pg/mL Off scale high 0.0-20.0 [facility] Comment on above: Result Comment: Crit ical Result : Called to and read back by: ARY BUSTILLOS at: 08/20/2022 19:45:52 by:[id number] PERFORMED BY: [place] [address] PATHOLOGIST MARKER MAKER DREW REAL M.D. Performed By: #### H S TROP #### [facility] [address] [place] [address] Troponin I High Sensitivity 366.3 pg/mL Off scale high 0.0-20.0 [facility] Comment on above: Result Comment: Crit ical Result : Called to and read back by: SHANNON FERREIRA at: 08/20/2022 17:43:14 by:[id number] PERFORMED BY: [place] [address] PATHOLOGIST MARKER MAKER DREW REAL M.D. Performed By: #### H S TROP #### [address] Troponin I.cardiac [Mass/vol ume] in Serum or Plasma by Detection limit <= 0.01 ng/Ordered By: Cirilo Wise on 08-20-2022 Troponin I.cardiac DL <= 0.01 ng/mL [Mass/Vol] 366.3 pg/mL 0.0-20.0 [facility] Comment on above: Critical Result : Ca lled to and read back by: SHANNON FERREIRA at: 08/20/2022 17:43:14 by:[id number] Urea nitrogen [Mass/volume] in Serum or PlasmaOrdered By: Cirilo Wise on 08-20-2022 Urea nitrogen [Mass/Vol] 15 mg/dL 7-25 [facility] WBC Auto (Bld) [#/Vol]Ordere d By: Cirilo Wise on 08-20-2022 WBC (Bld) [#/Vol] 10.7 10*3/uL 4.1-10.5 [facility] XR chest 1Von 08-20-2022 XR chest 1V [facility] [employer] [address] [place] [address] XRay Report Signed Patient: Olaf Briones MR#: [id number] 2 : 1945 Acct:[id number] Age/Sex: 77 / M ADM Date: 08/20/22 Loc: Room: Type: [facility] Attending Dr: Steven Zamora DO Copies [...] Lucinda Monreal M.D.08/20/2022 4:50 PM Dictation Location: [place] [address] Transcribed By: [facility] 08/20/221649 Dictated By: Lucinda Monreal MD 08/20/22 1648 Signed By: 08/20/22 165 [facility] Office Visit (Cardiology)on 06-01-2022 Follow-up visit Diagnoses/Problems [...] Weight Tips; Status:Complete - Retrospective Authorization; Done: [id number] Some eating tips that can help you lose weight.; Status:Complete - Retrospective Authorization; Done: [id number] SocHx: Former smoker Tobacco Use Screening; Status:Complete; Done: [id number] Patient Instructions Please bring all medicines, vitamins, [...] in 1 year. Lab as scheduled with [place] Chief Complaint OLAF BRIONES is being seen [...] negative for complaint. Vitals Vital Signs Recorded: [id number] 10:52AMRecorded: 57Yco3410 10:34AM [id number], LUE, Sitting [id number], LUE, Sitting Heart Rate72, L Radial Height5 ft 6 in Lhshid379 lb BMI Plsdohfdft59.73 kg/m2 BSA Calculated1.9 Tobacco Useb) No PHQ-2 #1. Over the last 2 weeks have you felt down, depressed (more content not included)... Normal Vdolg XR KUB 1 VIEWon 10-26-2021 XR KUB [...] by: AMNA BALDWIN Date: 2021-10-26 10:33 Normal [facility] Office Visit (Cardiology)on 09-18-2021 Follow-up visit Diagnoses/Problems [...] Recorded: 18Sep2021 10:16AM Heart Rate64, L Radial [id number], (more content not included)... Normal Vdolg Tobacco Screening.on 022 Fall risk assessment a) No falls within the last year [facility]u eduardo 250 DO Work Phone: Tobacco use status [facility] b) No M [facility] HeartCristy clark 250 DO Work Phone: IO EKG Electrocardiogram- 12 Leadon 11-24-2020 IO EKG Electrocardiogram- 12 Lead See Scanned Document [facility] Carter clark 250 DO Work Phone: Tobacco Screening.on 021 Fall risk assessment a) No falls within the last year [facility] Carter clark 250 DO Work Phone: Tobacco use status [facility] b) No M [facility] Carter clark 250 DO Work Phone: Vital Signs Date Time Vital Sign Value Performing Clinician Facility 01-09-2023 15:38-0500 Body height 172.7 cm Ashutosh Ling MD Work Phone: [facility] 01-09-2023 15:38-0500 Body mass index (BMI) [Ratio] 26.76 kg/m2 Ashutosh Ling MD Work Phone: [facility] 01-09-2023 15:38-0500 Body weight 79.83 kg Ashutosh Ling MD Work Phone: [facility] 01-09-2023 15:38-0500 Diastolic blood pressure 76 mm[Hg] Ashutosh Ling MD Work Phone: [facility] 01-09-2023 15:38-0500 Heart rate 58 /min Ashutosh Ling MD Work Phone: [facility] 01-09-2023 15:38-0500 Systolic blood pressure 142 mm[Hg] Ashutosh Ling MD Work Phone: [facility] 10-29-2022 11:35-0400 Body height 172.72 cm Estella Siddiqui Other [facility] Other 10-29-2022 11:35-0400 Body mass index (BMI) [Ratio] 26.64 kg/m2 Estella Siddiqui Other [facility] Other 10-29-2022 11:35-0400 Body temperature 98.2 [degF] Estella Siddiqui Other [facility] Other 10-29-2022 11:35-0400 Body weight 79.47 kg Estella Siddiqui Other [facility] Other 10-29-2022 11:35-0400 Diastolic blood pressure 76 mm[Hg] Estella Siddiqui Other [facility] Other 10-29-2022 11:35-0400 Respiratory rate 18 /min Estella Siddiqui Other [facility] Other 10-29-2022 11:35-0400 SaO2% (BldA) [Mass fraction] 98 % Estella Siddiqui Other [facility] Other 10-29-2022 11:35-0400 Systolic blood pressure 140 mm[Hg] Estella Siddiqui Other [facility] Other 09-05-2022 13:02-0400 Body height 167.64 cm Nahomi Hernandez Work Phone: [facility] 250 DO Work Phone: 09-05-2022 13:02-0400 Body mass index (BMI) [Ratio] 27.6 kg/m2 Nahomi Hernandez Work Phone: [facility] 250 DO Work Phone: 09-05-2022 13:02-0400 Body surface area Derived from formula 1.87 m2 Nahomi Hernandez Work Phone: [facility] 250 DO Work Phone: 09-05-2022 13:02-0400 Body weight 77.57 kg Nahomi Bowers David Work Phone: [facility] 250 DO Work Phone: 09-05-2022 13:02-0400 Diastolic blood pressure 54 mm[Hg] Nahomi Bowers David Work Phone: [facility] 250 DO Work Phone: 09-05-2022 13:02-0400 Heart rate 68 /min Nahomi Bowers David Work Phone: [facility] 250 DO Work Phone: 09-05-2022 13:02-0400 Systolic blood pressure 126 mm[Hg] Nahomi Bowers David Work Phone: [facility] 250 DO Work Phone: 08-27-2022 03:30-0400 Diastolic blood pressure 76 mm[Hg] [facility] 08-27-2022 03:30-0400 Heart rate 74 /min [facility] 08-27-2022 03:30-0400 Mean blood pressure 87 mm[Hg] [facility] 08-27-2022 03:30-0400 Respiratory rate 14 /min [facility] 08-27-2022 03:30-0400 SaO2% (BldA) [Mass fraction] 96 % [facility] 08-27-2022 03:30-0400 Systolic blood pressure 110 mm[Hg] [facility] 08-27-2022 03:00-0400 Diastolic blood pressure 80 mm[Hg] [facility] 08-27-2022 03:00-0400 Heart rate 80 /min [facility] 08-27-2022 03:00-0400 Mean blood pressure 97 mm[Hg] [facility] 08-27-2022 03:00-0400 Respiratory rate 15 /min [facility] 08-27-2022 02:30-0400 Diastolic blood pressure 73 mm[Hg] [facility] 08-27-2022 02:30-0400 Heart rate 96 /min [facility] 08-27-2022 02:30-0400 Mean blood pressure 92 mm[Hg] [facility] 08-27-2022 02:30-0400 Respiratory rate 20 /min [facility] 08-27-2022 02:30-0400 SaO2% (BldA) [Mass fraction] 98 % [facility] 08-27-2022 02:30-0400 Systolic blood pressure 130 mm[Hg] [facility] 08-26-2022 19:17-0400 Respiratory rate 18 /min [facility] 08-26-2022 18:11-0400 Respiratory rate 18 /min [facility] 08-26-2022 17:07-0400 Body temperature 97.7 [degF] [facility] 08-26-2022 17:07-0400 Heart rate 83 /min [facility] 08-26-2022 17:07-0400 Respiratory rate 18 /min [facility] 08-22-2022 15:50-0400 Body temperature 98.2 [degF] [facility] 08-22-2022 15:50-0400 Diastolic blood pressure 64 mm[Hg] [facility] 08-22-2022 15:50-0400 Heart rate 64 /min [facility] 08-22-2022 15:50-0400 Respiratory rate 18 /min [facility] 08-22-2022 15:50-0400 SaO2% (BldA) [Mass fraction] 99 % [facility] 08-22-2022 15:50-0400 Systolic blood pressure 124 mm[Hg] [facility] 08-22-2022 05:48-0400 Body weight 81 kg [facility] 08-21-2022 10:27-0400 70 1 Jame Barraza Work Phone: [facility] 250 DO Work Phone: Comment on above: [id number] 08-20-2022 18:32-0400 Body height 172.72 cm [facility] 08-20-2022 17:13-0400 Heart rate 42 /min [facility] 08-20-2022 16:38-0400 Diastolic blood pressure 60 mm[Hg] [facility] 08-20-2022 16:38-0400 Respiratory rate 18 /min [facility] 08-20-2022 16:38-0400 SaO2% (BldA) [Mass fraction] 98 % [facility] 08-20-2022 16:38-0400 Systolic blood pressure 123 mm[Hg] [facility] 08-20-2022 16:25-0400 Body height 172.72 cm [facility] 08-20-2022 16:25-0400 Body temperature 97.6 [degF] [facility] 08-20-2022 16:25-0400 Body weight 81.5 kg [facility] 10-27-2021 08:55-0400 Blood Pressure Location Shanna IVORY [facility] 10-27-2021 08:55-0400 Diastolic blood pressure 76 mm[Hg] Shanna IVORY [facility] 10-27-2021 08:55-0400 Heart rate 64 /min Shanna IVORY [facility] 10-27-2021 08:55-0400 Respiratory rate 16 /min Shanna IVORY [facility] 10-27-2021 08:55-0400 Systolic blood pressure 125 mm[Hg] Shanna IVORY [facility] 03-07-2021 15:22-0500 Diastolic blood pressure 78 mm[Hg] Jame Barraza Work Phone: [facility] 250 DO Work Phone: 03-07-2021 15:22-0500 Systolic blood pressure 139 mm[Hg] Jame Barraza Work Phone: [facility] 250 DO Work Phone: 03-07-2021 14:47-0500 Body height 167.64 cm Jame Barraza Work Phone: [facility] 250 DO Work Phone: 03-07-2021 14:47-0500 Body mass index (BMI) [Ratio] 28.73 kg/m2 Jame Barraza Work Phone: [facility] 250 DO Work Phone: 03-07-2021 14:47-0500 Body surface area Derived from formula 1.9 m2 Jame Barraza Work Phone: [facility] 250 DO Work Phone: 03-07-2021 14:47-0500 Body weight 80.74 kg Jame Barraza Work Phone: [facility] 250 DO Work Phone: 03-07-2021 14:47-0500 Diastolic blood pressure 82 mm[Hg] Jame Barraza Work Phone: [facility] 250 DO Work Phone: 03-07-2021 14:47-0500 Heart rate 84 /min Jame Barraza Work Phone: [facility] 250 DO Work Phone: 03-07-2021 14:47-0500 Systolic blood pressure 172 mm[Hg] Jame Barraza Work Phone: [facility] 250 DO Work Phone: 11-24-2020 08:51-0400 Body height 167.64 cm Jame Barraza Work Phone: [facility] 250 DO Work Phone: 11-24-2020 08:51-0400 Body mass index (BMI) [Ratio] 28.08 kg/m2 Jame Barraza Work Phone: [facility] 250 DO Work Phone: 11-24-2020 08:51-0400 Body surface area Derived from formula 1.89 m2 Jame Barraza Work Phone: [facility] 250 DO Work Phone: 11-24-2020 08:51-0400 Body weight 78.93 kg Jame Barraza Work Phone: [facility] 250 DO Work Phone: 11-24-2020 08:51-0400 Diastolic blood pressure 82 mm[Hg] Jame Barraza Work Phone: [facility] 250 DO Work Phone: 11-24-2020 08:51-0400 Diastolic blood pressure 80 mm[Hg] Jame Barraza Work Phone: [facility] 250 DO Work Phone: 11-24-2020 08:51-0400 Heart rate 66 /min Jame Barraza Work Phone: [facility] 250 DO Work Phone: 11-24-2020 08:51-0400 Systolic blood pressure 136 mm[Hg] Jame Barraza Work Phone: [facility] 250 DO Work Phone: 11-24-2020 08:51-0400 Systolic blood pressure 138 mm[Hg] Jame Barraza Work Phone: [facility] 250 DO Work Phone: Encounters Encounter Date Encounter Type Care Provider Facility Start: 11-29-2023 ambulatory Shanna Yousif ty:[facility] Start: 03-12-2023 End: 03-12-2023 ambulatory DAV PEGUERO Not Available Start: 03-04-2023 End: 03-05-2023 ambulatory Alonzo Briscoe MD Facility: [facility] Start: 02-04-2023 End: 02-05-2023 ambulatory Alonzo Briscoe MD Facility: [facility] Start: 01-09-2023 End: 01-09-2023 ambulatory [facility] Ambulatory Start: 01-09-2023 End: 01-09-2023 Office outpatient visit 25 minutes Ashutosh Ling MD Work Phone: [facility] Comment on above: Arteriosclerotic car diovascular disease (Primary Dx); Abnormal EKG; Mixed hyperlipidemia; Primary hypertension; Post PTCA; Essential hypertension; BMI 26.0-26.9,adult; Easy bruisability Start: 11-26-2022 End: 11-27-2022 ambulatory Shanna IVORY Facility:[facility] Start: 10-29-2022 End: 10-29-2022 ambulatory Estella Siddiqui Other [facility] Other Start: 10-29-2022 Office outpatient ne w 10 minutes Estella Siddiqui [facility] Start: 10-01-2022 Rx Renewal Nahomi Hernandez Work Phone: [facility] 250 DO Work Phone: Start: 09-14-2022 Rx Renewal Nahomi Bowers David Work Phone: [facility] 250 DO Work Phone: Start: 09-06-2022 Telephone encounter [facility] Comment on above: Patient Update Start: 09-05-2022 Office outpatient vi sit 25 minutes Nahomi Elissa David Work Phone: [facility] 250 DO Work Phone: Start: 09-05-2022 Patient encounter procedure Nahomi Bowers David Work Phone: [facility] DO Work Phone: Start: 09-05-[address] Ashutosh Ling Facility: Start: 09-05-2022 End: 09-06-2022 ambulatory Alexandre KOROMA Facility:[facility] Start: 09-05-2022 End: 09-05-2022 Patient encounter procedure Alexandre KOROMA [facility] Start: 09-04-2022 Telephone encounter Deborah Ibarra RN NOC Comment on above: Follow Up Phone Call (All Clear) Start: 08-27-2022 End: 08-31-2022 Evaluation and management of inpatient DAVID ANDREWS Facility:[facility] Start: 08-26-2022 End: 08-27-2022 Emergency department patient visit Keith Panchal Facility:[facility] Start: 08-26-2022 End: 08-27-2022 Emergency department patient visit [facility] Catalina Panchal [facility] Start: 08-26-2022 End: 08-28-2022 ambulatory Alexandre KOROMA Facility:[id number] Start: 08-24-2022 Chart Update Jame Barraza Work Phone: [facility] 250 DO Work Phone: Start: 08-22-[address] Jame Barraza Facility:[id number] Start: 08-21-[address] Jame Barraza Facility:[id number] Start: 08-20-2022 End: 08-22-2022 Evaluation and management of inpatient W Steve Zamora Facility:[facility] Start: 08-20-2022 End: 08-22-2022 Evaluation and management of inpatient [facility] Work Phone: Start: 08-20-2022 Admission to [facility] Work Phone: Start: 08-20-2022 ambulatory NON STAFF [facility] Work Phone: Start: 08-20-[address] Ben Zamora Facility:[id number] Start: 08-20-[address] Jame Barraza Facility:[id number] Start: 06-01-[address] Nahomi Hernandez Facility: Start: 05-08-2022 ambulatory Shanna IVORY Facility :[facility] Start: 10-27-2021 End: 10-27-2021 Patient encounter procedure Shanna IVORY [facility] Start: 10-26-2021 End: 10-27-[address] SHANNA IVORY Facility:[facility] Start: 05-04-2021 ambulatory DOMINGUEZ Neely lity:[facility] Start: 03-07-2021 Office outpatient vi sit 25 minutes Jame Barraza Work Phone: [facility] 250 DO Work Phone: Start: 11-29-2020 Chart Update Jame Barraza Work Phone: [facility] 250 DO Work Phone: Start: 11-28-2020 Patient encounter procedure Jame Barraza Work Phone: [facility] [place] Work Phone: Start: 11-24-2020 AUDIT Jame Elissa Christi Work Phone: [facility] 250 DO Work Phone: Procedures Date Procedure Procedure Detail Performing Clinician Start: 08-30-2022 Antibody screen DAVID PEREZ Comment on above: Order Comment: Speci men Type: BLOOD SPECIMENOrdering Facility: [facility] Address: [address] [place] [place] [address] Performed By: #### T SCR ####CC MAIN BLOOD BANKCLIA [id number] [address] Start: 08-27-2022 Antibody screen DAVID PEREZ Comment on above: Order Comment: Speci men Type: BLOOD SPECIMENOrdering Facility: [facility] Address: [address] [place] [place] [address] Performed By: #### T SCR ####CC MAIN BLOOD BANKCLIA [id number] [address] Start: 08-20-[address] [...] DTaP/Tdap/Td Vaccines (2 - Td or Tdap) [facility] Start: 03-27-2031 Urine microalbumin profile DTAP,TDAP,TD (2 - Td or Tdap) [facility] Start: 06-26-2023 End: 06-26-2023 Patient encounter procedure 06/26/2023 3:10 PM EDT Office Visit [facility] [address] [id number] Ashutosh Ling MD [facility] [facility], [address] [place] [address] [facility] Start: 06-07-2023 FUV, Provider: Ashutosh Ling, Status: Pen, Time: 11:20 AM FUV, Provider: Ashutosh Ling, Status: Pen, Time: 11:20 AM [facility] 250 DO Work Phone: Start: 01-09-2023 FUV, Provider: Ashutosh Ling, Status: Pen, Time: 3:30 PM FUV, Provider: Ashutosh Ling, Status: Pen, Time: 3:30 PM [facility] Work Phone: Start: 10-19-2022 Influenza vaccination INFLUENZA (#1) [facility] Start: 09-05-2022 FUV, Provider: Asuhtosh Ling, Status: Pen, Time: 12:50 PM FUV, Provider: Ashutosh Ling, Status: Pen, Time: 12:50 PM [facility] 250 DO Work Phone: Start: 08-22-2022 [facility] Start: 08-20-2022 Consultation [facility] Start: 08-20-2022 Referral to cardiac rehabilitation program [facility] Start: 08-20-2022 [facility] Start: 08-20-2022 End: 08-20-2022 Hospital admission [facility] Start: 02-18-2022 ADVANCE DIRECTIVE DISCUSSION ADVANCE DIRECTIVE DISCUSSION [facility] Start: 02-18-2022 DEPRESSION ASSESSMENT DEPRESSION ASSESSMENT [facility] Start: 08-30-2021 FUV, Provider: Ashutosh Ling, Status: Pen, Time: 2:30 PM FUV, Provider: Ashutosh Ling, Status: Pen, Time: 2:30 PM -[facility] 250 DO Work Phone: Start: 04-03-2021 COVID-19 VACCINE (4 - Pfizer series) COVID-19 VACCINE (4 - Pfizer series) [facility] Start: 03-07-2021 FUV, Provider: Ashutosh Ling, Status: Pen, Time: 2:50 PM FUV, Provider: Ashutosh Ling, Status: Pen, Time: 2:50 PM -[facility] 250 DO Work Phone: Start: 11-28-2020 EVENT ELIEZER, Provider: FADUMO BENSON PUMPING STATION ENGINEER 1,[id number], Status: Pen, Time: 10:30 AM EVENT ELIEZER, Provider: FADUMO BENSON PUMPING STATION ENGINEER 1,[id number], Status: Pen, Time: 10:30 AM [facility] 250 DO Work Phone: Start: 06-18-1995 SHINGRIX VACCINE (1 of 2) SHINGRIX VACCINE (1 of 2) [facility] Start: 06-18-1995 Zoster Vaccines (1 of 2) Zoster Vaccines (1 of 2) [facility] Start: 06-18-1963 ANNUAL PCP TEAM CHRONIC DISEASE VISIT ANNUAL PCP TEAM CHRONIC DISEASE VISIT [facility] Start: 06-18-1963 BP CONTROLLED (<130/80) BP CONTROLLED (<130/80) [facility] Start: 06-18-1963 Hepatitis B surface antibody level LDL CHOLESTEROL [facility] Start: 06-18-1963 HEPATITIS C SCREENING HEPATITIS C SCREENING [facility] Start: 06-18-1963 Hepatitis C screening Hepatitis C Screening [facility] Start: 06-18-1955 3 comp foot exam completed DIABETIC FOOT EXAM [facility] Start: 06-18-1955 Hepatitis B screening URINE ALBUMIN:CREATININE RATIO [facility] Start: 06-18-1955 Hepatitis C antibody, confirmatory test DILATED RETINAL EXAM [facility] Start: 1950 Hemoglobin A1c/Hemoglobin.total in Blood HBA1C [facility] Start: 1945 Lipid panel Lipid Panel [facility] Start: 1945 Medicare Annual Wellness Visit Medicare Annual Wellness Visit (AWV) [facility] Patient Education Coronary Angio plasty (DC) Coronary Stenting (DC) Angina (DC) Chest Pain (DC) Drug Eluting Stents [facility] Work Phone: Patient referral [facility] Work Phone: Immunizations Immunization Date Immunization Notes Care Provider Fa [facility] 02-18-2022 influenza nasal, unspecified formulation Deborah [facility]barra RN [facility] [facility] 12-26-2021 Fluad Quadrivalent 0 .5 ML Intramuscular Prefilled Syringe Jame Barraza Work Phone: [facility] 12-26-2021 influenza, high dose seasonal, preservative-free Ashutosh Ling MD Work Phone: [facility] Work Phone: 03-27-2021 tetanus toxoid, redu shruti diphtheria toxoid, and acellular pertussis vaccine, adsorbed Deborah Ibarra RN [facility] 02-06-2021 Pfizer-BioNTech COVID-19 Vacc 30 MCG/0.3ML Intramuscular Suspension Jame Barraza Work Phone: [facility] 11-18-2020 influenza nasal, unspecified formulation Deborah Ibarra RN [facility] 11-10-2020 Fluad Quadrivalent 0 .5 ML Intramuscular Prefilled Syringe Jame Barraza Work Phone: [facility] 04-12-2020 Pfizer-BioNTech COVID-19 Vacc 30 MCG/0.3ML Intramuscular Suspension Jame Barraza Work Phone: [facility] 03-28-2020 COVID-19 original vaccine, age 12+ yr, monovalent (PFIZER-BIONTECH - PURPLE TOP) Deborah Ibarra RN [facility] 03-22-2020 Pfizer-BioNTech COVID-19 Vacc 30 MCG/0.3ML Intramuscular Suspension Jame Barraza Work Phone: [facility] 03-21-2020 SARS-CoV-2 (COVID-19 ) Ad26 vaccine, recombinant Shanna IVORY [facility] Comment on above: Result Comment: unab le to give exact dates 12-16-2019 influenza (HD-IIV4) vaccine, age 65+ yr, high dose, quadrivalent, PF (FLUZONE HIGH-DOSE) Deborah Ibarra RN [facility] 12-16-2018 AS03 adjuvant Deborah Ibarra RN [facility] 12-24-2017 AS03 adjuvant Deborah Ibarra RN [facility] 12-21-2016 influenza, high dose seasonal, preservative-free Deborah Ibarra RN [facility] 02-19-2016 pneumococcal polysaccharide vaccine, 23 valent Jame Barraza Work Phone: [facility] Comment on above: Series: 11-23-2015 influenza, high dose seasonal, preservative-free Jame Barraza Work Phone: [facility] 10-20-2015 influenza nasal, unspecified formulation Deborah Ibarra RN [facility] 11-06-2014 influenza nasal, unspecified formulation Deborah Ibarra RN [facility] 11-06-2014 pneumococcal conjuga te vaccine, 13 valent Deborah Ibarra RN [facility] Payers Date Payer Category Payer Medicare [id number] 2022 Private Health Insurance [id number] 2022 Self-pay 2022 Medicare [id number] 2022 Medicare [id number] 1959 Medicare [id number] 1959 Private Health Insurance [facility] [id number] 1945 Unknown [id number] [id number] 1945 Unknown [id number] 2.16.840.1.428089.3.579.2.593 1945 Unknown [id number] 2.16.840.1.126072.3.579.2.356 1945 Unknown [id number] 2.16.840.1.677294.3.579.2.356 1945 Unknown [id number] 2.16.840.1.735848.3.579.2.356 1945 Unknown [id number] 2.16.840.1.141454.3.579.2.356 1945 Unknown [id number] 2.16.840.1.720728.3.579.2.356 1945 Unknown [id number] 2.16.840.1.369714.3.579.2.356 1945 Unknown [id number] 2.16.840.1.114143.3.579.2.727 1945 Unknown [id number] 2.16.840.1.382392.3.579.2.727 1945 Unknown [id number] 2.16.840.1.392365.3.579.2.727 1945 Unknown [id number] 2.16.840.1.541204.3.579.2.727 1945 Unknown [id number] 2.16.840.1.113843.3.579.2.727 1945 Unknown [id number] 2.16.840.1.443005.3.579.2.1244 1945 Unknown [id number] 2.16.840.1.935415.3.579.2.1259 1945 Unknown [id number] 2.16.840.1.323871.3.579.2.196 1945 Unknown [id number] 2.16.840.1.335803.3.579.2.196 Private Health Insurance [facility] [id number] Unknown Unknown [id number] [id number] Social History Date Type Detail Facility Start: 01-08-2023 No alcohol use No alcohol use -[facility] 250 DO Work Phone: Comment on above: 1 cup of coffee edelmira y; former cigar smoker; Start: 10-21-2020 End: 08-21-2022 Tobacco smoking status Never smoked tobacco (finding) [facility] Start: 01-08-2023 Sex Assigned At Male [facility] Start: 1945 Sex Assigned At Male [facility] Tobacco smoking status [facility] Tobacco smoking consumption unknown [facility] Start: 1945 Sex Assigned At Not on file [facility] Start: 01-08-2023 Tobacco smoking status NHIS Ex-smoker [facility] Work Phone: History of tobacco use Current smoker [facility] Work Phone: History of tobacco use Cigar Smoker [facility] Work Phone: Start: 01-08-2023 Tobacco use and exposure Smokeless tobacco non-user [facility] Work Phone: Start: 01-09-2023 Alcohol intake Ex-drinker (finding) [facility] Work Phone: Start: 12-30-2022 End: 01-09-2023 Exposure to SARS-CoV-2 (event) Not sure [facility] Medical Equipment Procedure Code Equipment Code Equipment Origin al Text Equipment Identifier Dates CL STENT BISHOP FRONTIER 3.0 X 26 FDA Start: 08-20-2022 Femoral artery closure plug/patch, synthetic polymer ([id number] FDA Start: 08-20-2022 Goals Date Patient Goal Desired Activity /State Functional Status Date Assessment Result Facility 08-26-2022 Functional Status N/A [facility] 08-22-2022 Functional status Patient at Baseline [facility] Work Phone: 10-27-2021 Functional Status N/A [facility] Mental Status Date Assessment Result Facility 08-22-2022 Cognitive function Cognitive Sta tus Patient at Baseline [facility] Work Phone: Clinical Notes 10-27-2021 to [...] his lab work is done through the [place] system Review of Systems Constitutional: Easy bruisability [...] 8. Easy bruisability documented in this encounter [facility] Work Phone: 01-09-2023 Instructions Travis Peter [...] of your visit. documented in this encounter [facility] Work Phone: 10-29-2022 Evaluation note Encounter Date Diagnosis Assessment Notes Oct, Impacted cerumen of both ears (ICD-10 - H61.23) Cerumen impaction home care material was printed Drink plenty fluids, get plenty of rest. Continue home medications as prescribed. Follow-up with your family physician for any further concerns [facility] Other 07-20-2023 Miscellaneous Notes* Telephone Encounter - [...] called in. The pharmacy is not at [facility]. I will need to call them when its done. Dr Koroma is asking why he is on flomax? Please advise. [facility] Miscellaneous Notes* Telephone Encounter - Deborah Ibarra RN - 09/04/2022 12:51 PM EDT PATIENT INFORMATION Record ID: [id number] Patient Name: [facility]: [facility] [place]: [facility] Attending: David Andrews Center: Urology INSTRUCTIONS SN to remind patient of appointment date, time, location All Clear All Clear SURVEY INFORMATION Medical/Nurse Steward/Stewardess Economy Class: Deborah Ibarra 1. Your discharge instructions are [...] symptoms? (Standard Question) No documented in [facility]23 NoteHNO ID: [id number] Author: Kathrin Dickerson RN Service: Care Management [...] Primary Care Physician Name/Phone: Jame Barraza MD [phone] Patient is medically stable for discharge, on RA, no dc needs. IMM provided on 08/30 by previous CM. Patients to discharge home. SIGNATURE: Kathrin Dickerson RN PATIENT NAME: Olaf Briones DATE: August 31, 2022 TIME: 9:40 AM CONTACT #: [phone] Note HNO ID: [id number] Author: Danyell Morris MD Service: Critical Care Author Type: Anesthesiologist Type: Progress Notes Filed: 08/31/2022 2:15 PM Note Text: SERVICE DATE: 08/31/2022 SERVICE TIME: 8:54 AM SURGICAL INTENSIVE CARE UNIT PROGRESS NOTE BRIEF HPI: Olaf Briones is a 77 year old male with PMHx of recent STEMI on 08/20/22 (s/p JUHI),HTN, HLD, DM, nephrolithiasis, transferred from [facility] for gross hematuria. He is now [...] Primary and SICU discussed patient transfer to [facility]. 08/30:no acute events. Hemodynamically stable. 08/31: No acute events. HDS. Patient is doing well and ready for transfer/discharge per Urology. Subjective INTERVAL EVENTS: Improved Objective MEDICATIONS: Current medications and allergies reviewed. Recommended/planned medication changes discussed in detail in the A/P section below. Please refer to [employer] for list of inpatient medications. VITAL SIGNS: [...] Is Patient Clinically Ready to Transfer to [facility] or SDU?: Yes, transfer to SDU [...] aspirin and ticagrelor Coronary artery disease involving [place] coronary artery of [place] river heart Assessment: STEMI on 08/19/2022 s/p JUHI [...] (From admiss (more content not included)...[facility]07-14-2023 NoteHNO ID: [id number] Author: Prema Feliz MD Service: Urology Author Type: Resident Type: Progress Notes Filed: 08/31/2022 6:45 AM Note Text: [facility] UROLOGY PROGRESS NOTE Name: Olaf Briones Bed: H050 013/H050-13 Date: 08/31/2022 After Hours [facility] Urology Service Pager: [phone] ASSESSMENT AND PLAN Olaf Briones is a 77 year old male with PMHx of HTN, HLD, DM, recent STEMI (s/p JUHI, on Brillinta and ASA), nephrolithiasis s/p ESWL remote, BPH s/p TURP 2001, transferred from [facility] for gross hematuria. Currently with 18Fr 3-way catheter on CBI. Now 3 Days Post-Op s/p cystoscopy, clot evacuation, cystolitholapaxy, TURP. Admitted to SICU postoperatively due to pressor requirements and risk of hyponatremia due to length of TURP. 22Fr [address] hernandez placed introp, on traction and CBI. Transferred to [facility] 08/30. Interval: - AFVSS - Doing [...] order flomax for home. Active Problems Prior MA POA: Yes - placed on ASA 81, ticagrelor 90 mg BID Nephrolithiasis POA: Yes - Monitor HLD POA: Yes - Home atorva 80 mg DM POA: Yes - SSI HTN POA: Yes - amlodipine 5mg daily, carvedilol 6.25 BID, lisinopril 2.5 mg daily Prema Feliz MD PGY-2 Resident Physician Urology Pager: [phone] For weekend or after hours issues [place] [phone] SUBJECTIVE See above Objective OBJECTIVE Vital Signs BP 114/56 Pulse 61 Temp 36.9 ?C (98.4 ?F) (Oral) Resp 15 Ht 173 cm (5' 8.11 ) Wt 77.9 kg (171 lb 11.8 oz) SpO2 95% BMI 26.03 kg/m? Input and Output Intake/Output Summary (Last 24 hours) at 08/31/2022 0645 Last data filed at 08/31/2022 0600 Gross per 24 hour Intake 6174.7 ml Output 08528 ml Net -5325.3 ml Physical Exam GEN: [...] Feliz MD PGY-2 Resident Physician Urology Pager: [phone] For weekend or after hours issues please page the [place] urology [place] [phone] [facility] [address]23 NoteHNO ID: [id number] Author: Danyell Morris MD Service: Critical Care Author Type: Anesthesiologist Type: Progress Notes Filed: 08/30/2022 3:36 PM Note Text: SERVICE DATE: 08/30/2022 SERVICE TIME: 3:25 PM SURGICAL INTENSIVE CARE UNIT PROGRESS NOTE BRIEF HPI: Olaf Briones is a 77 year old male with PMHx of recent STEMI on 08/20/22 (s/p JUHI),HTN, HLD, DM, nephrolithiasis, transferred from [facility] for gross hematuria. He is now [...] Primary and SICU discussed patient transfer to [facility]. 08/30:no acute events. Hemodynamically stable. Subjective INTERVAL EVENTS: hemodynamically stable. Objective MEDICATIONS: Current medications and allergies reviewed. Recommended/planned medication changes discussed in detail in the A/P section below. Please refer to [employer] for list of inpatient medications. VITAL SIGNS: [...] Is Patient Clinically Ready to Transfer to [facility] or SDU?: Yes, transfer to SDU or [facility] today Discharge Planning: To be determined [...] aspirin and ticagrelor Coronary artery disease involving [place] coronary artery of [place] heart Assessment: STEMI on 08/19/2022 s/p JUHI [...] AND Antiplatel (more content not included)...[facility]07-13-2023 NoteHNO ID: [id number] Author: Prema Feliz MD Service: Urology Author Type: Resident Type: Progress Notes Filed: 08/30/2022 7:12 AM Note Text: [facility] UROLOGY PROGRESS NOTE Name: Olaf Briones Bed: H050 013/H050-13 Date: 08/30/2022 After Hours [facility] Urology Service Pager: [phone] ASSESSMENT AND PLAN Olaf rBiones is a 77 year old male with PMHx of HTN, HLD, DM, recent STEMI (s/p JUHI, on Brillinta and ASA), nephrolithiasis s/p ESWL remote, BPH s/p TURP 2001, transferred from [facility] for gross hematuria. Currently with 18Fr 3-way catheter on CBI. Now 2 Days Post-Op s/p cystoscopy, clot evacuation, cystolitholapaxy, TURP. Admitted to SICU postoperatively due to pressor requirements and risk of hyponatremia due to length of TURP. 22Fr [address] hernandez placed introp, on traction and CBI. Awaiting bed on [facility]. Interval: - Afebrile, SBPs 110s - Doing [...] discharge today vs tomorrow Active Problems Prior MA POA: Yes - placed on ASA 81, ticagrelor 90 mg BID Nephrolithiasis POA: Yes - Monitor HLD POA: Yes - Home atorva 80 mg DM POA: Yes - SSI HTN POA: Yes - amlodipine 5mg daily, carvedilol 6.25 BID, lisinopril 2.5 mg daily Prema Feliz MD PGY-2 Resident Physician Urology Pager: [phone] For weekend or after hours issues [place] [phone] SUBJECTIVE See above Objective OBJECTIVE Vital Signs BP 111/56 Pulse 61 Temp 36.7 ?C (98.1 ?F) (Axillary) Resp 12 Ht 173 cm (5' 8.11 ) Wt 84 kg (185 lb 3 oz) SpO2 96% BMI 28.07 kg/m? Input and Output Intake/Output Summary (Last 24 hours) at 08/30/2022 0558 Last data filed at 08/30/2022 0500 Gross per 24 hour Intake 6400 ml Output 86728 ml Net -4150 ml Physical Exam GEN: [...] Feliz MD PGY-2 Resident Physician Urology Pager: [phone] For weekend or after hours issues please page the [place] urology [place] [phone] [facility]23 NoteHNO ID: [id number] Author: Ary Frazier RN Service: Care Management [...] oxygen, or cpaps at home. Had recent MA in past. Cardiology on consult. No current [...] 29, 2022 TIME: 12:11 PM PAGER/CONTACT #: [phone] St[facility]2023 NoteHNO ID: [id number] Author: Danyell Morris MD Service: Critical Care Author Type: Anesthesiologist Type: Progress Notes Filed: 08/29/2022 3:08 PM Note Text: SERVICE DATE: 08/29/2022 SERVICE TIME: 11:28 AM SURGICAL INTENSIVE CARE UNIT PROGRESS NOTE BRIEF HPI: Olaf Briones is a 77 year old male with PMHx of recent STEMI on 08/20/22 (s/p JUHI),HTN, HLD, DM, nephrolithiasis, transferred from [facility] for gross hematuria. He is now [...] Primary and SICU discussed patient transfer to [facility]. Subjective INTERVAL EVENTS: Improved Objective MEDICATIONS: [...] Is Patient Clinically Ready to Transfer to [facility] or SDU?: Yes, transfer to SDU [...] aspirin and ticagrelor Coronary artery disease involving [place] coronary artery of [place] heart Assessment: STEMI on 08/19/2022 s/p JUHI [...] Urology AND SICU ok for transfer to [facility] Medication and Non-Pharmacologic VTE Prophylaxis/Anticoagulants Anticoagulant AND Antiplatelet Medica (more content not included)...[facility]07-12-2023 NoteHNO ID: [id number] Author: David Andrews MD Service: Urology Author Type: Physician Type: Progress Notes Filed: 08/29/2022 7:09 PM Note Text: [facility] UROLOGY PROGRESS NOTE Name: Oalf Briones Bed: H050 013/H050-13 Date: 08/29/2022 After Hours [facility] Urology Service Pager: [phone] ASSESSMENT AND PLAN Olaf Briones is a 77 year old male with PMHx of HTN, HLD, DM, recent STEMI (s/p JUHI, on Brillinta and ASA), nephrolithiasis s/p ESWL remote, BPH s/p TURP 2001, transferred from [facility] for gross hematuria. Currently with 18Fr [...] EF 55% -Encourage IS -Continue telemetry on [facility] #GI - -Diet: Regular diet -Colace, [...] - routine #Disposition - pending course, to [facility] today if SICU agrees it is appropriate. Plan for discharge tomorrow. Active Problems Prior MA POA: Yes - placed on ASA 81, ticagrelor 90 mg BID Nephrolithiasis POA: Yes - Monitor HLD POA: Yes - Home atorva 80 mg DM POA: Yes - SSI HTN POA: Yes - amlodipine 5mg daily, carvedilol 6.25 BID, lisinopril 2.5 mg daily Prema Feliz MD PGY-2 Resident Physician Urology Pager: [phone] For weekend or after hours issues [place] [phone] CHIEF RESIDENT ADDENDUM POD#1 s/p cysto, TURP, [...] 08/29/2022 0700 Gross per 24 hour Intake 50109.5 ml Output 94783 ml Net 5853.5 ml Gen: No apparent [...] recs Gt Mcgowan MD Resident PGY-6 Urology [facility] Please page Dr. Feliz with any [...] 08/29/2022 0700 Gross per 24 hour Intake 14627.5 ml Output 64684 ml Net 5853.5 ml Physical Exam GEN: [...] Feliz MD PGY-2 Resident Physician Urology Pager: [phone] For weekend or after hours issues [place] [phone] [facility] STAFF PHYSICIAN NOTE OF PERSONAL INVOLVEMENT IN CARE I have reviewed the progress note obtained and documented by the resident (more content not included)...[facility]07-11-2023 NoteHNO ID: [id number] Author: Molly Rosado APRN.MOBILE SALES ASSISTANT Service: ? Author Type: Nurse Dermatological Surgeon Type: Anesthesia Procedure Notes Filed: 08/28/2022 7:27 PM Note Text: ANESTHESIOLOGY PROCEDURE NOTE PIV General Information Procedure Start Time/Medication Administration: 08/28/2022 7:26 PM Staffing MOBILE SALES ASSISTANT: Molly Rosado APRN.MOBILE SALES ASSISTANT Preparation Sterility Preparation: hand hygiene performed prior [...] August 28, 2022 TIME: 7:26 PM CSN: [id number] St[facility]2023 NoteHNO ID: [id number] Author: Molly Rosado APRN.MOBILE SALES ASSISTANT Service: ? Author Type: Nurse Dermatological Surgeon Type: Anesthesia Procedure Notes Filed: 08/28/2022 6:31 PM Note Text: ANESTHESIOLOGY PROCEDURE NOTE Airway General Information Procedure Start Time/Medication Administration: 08/28/2022 6:10 PM Patient location during procedure: OR Timeout Performed Pre-procedure: timeout performed Consent Obtained: Yes Patient identity confirmed: arm band and patient Staffing MOBILE SALES ASSISTANT: Molly Rosado APRN.CRNA Indications and Patient Condition [...] August 28, 2022 TIME: 6:31 PM CSN: [id number] Health St[facility]07-[facility]-2023 NoteHNO ID: [id number] Author: Prema Feliz MD Service: Urology Author Type: Resident Type: Progress Notes Filed: 08/28/2022 9:47 PM Note Text: [facility] UROLOGY PROGRESS NOTE Name: Olaf Briones Bed: H050 013/H050-13 Date: 08/28/2022 After Hours [facility] Urology Service Pager: [phone] ASSESSMENT AND PLAN Olaf Briones is a 77 year old male with PMHx of HTN, HLD, DM, recent STEMI (s/p JUHI, on Brillinta and ASA), nephrolithiasis s/p ESWL remote, BPH s/p TURP 2001, transferred from [facility] for gross hematuria. Currently with 18Fr [...] pending course, in SICU Active Problems Prior MA POA: Yes - placed on ASA 81, ticagrelor 90 mg BID Nephrolithiasis POA: Yes - Monitor HLD POA: Yes - Home atorva 80 mg DM POA: Yes - SSI HTN POA: Yes - amlodipine 5mg daily, carvedilol 6.25 BID, lisinopril 2.5 mg daily Prema Feliz MD PGY-2 Resident Physician Urology Pager: [phone] For weekend or after hours issues [place] [phone] SUBJECTIVE See above Objective OBJECTIVE Vital Signs BP 112/52 Pulse 69 Temp 36.9 ?C (98.4 ?F) (Oral) Resp 18 Ht 173 cm (5' 8.11 ) Wt 75.5 kg (166 lb 7.2 oz) SpO2 97% BMI 25.23 kg/m? Input and Output Intake/Output Summary (Last 24 hours) at 08/28/20221955 Last data filed at 08/28/2022 1830 Gross per 24 hour Intake 14233 ml Output 89237 ml Net -1875 ml Physical Exam GEN: [...] Feliz MD PGY-2 Resident Physician Urology Pager: [phone] For weekend or after hours issues please page the [place]-call urology [place] [phone] [facility] [address] [facility]23 NoteHNO ID: [id number] Author: Prema Feliz MD Service: Urology Author Type: Resident Type: Progress Notes Filed: 08/28/2022 8:02 AM Note Text: [facility] UROLOGY PROGRESS NOTE Name: Olaf Briones Bed: H050 013/H050-13 Date: 08/28/2022 After Hours [facility] Urology Service Pager: [phone] ASSESSMENT AND PLAN Olaf Briones is a 77 year old male with PMHx of HTN, HLD, DM, recent STEMI (s/p JUHI, on Brillinta and ASA), nephrolithiasis s/p ESWL , BPH s/p TURP 2001, transferred from [facility] for gross hematuria. Currently with 18Fr [...] for cysto, fulguration today Active Problems Prior MA POA: Yes - placed on ASA 81, ticagrelor 90 mg BID Nephrolithiasis POA: Yes - Monitor HLD POA: Yes - Home atorva 80 mg DM POA: Yes - SSI HTN POA: Yes - amlodipine 5mg daily, carvedilol 6.25 BID, lisinopril 2.5 mg daily Essential elements of above plan discussed with staff, Dr. Sharon Feliz MD PGY-2 Resident Physician Urology Pager: [phone] For weekend or after hours issues [place] [phone] SUBJECTIVE See above Objective OBJECTIVE Vital Signs BP 116/57 Pulse 69 Temp 36.5 ?C (97.7 ?F) (Oral) Resp 18 Ht 173 cm (5' 8.11 ) Wt 75.5 kg (166 lb 7.2 oz) SpO2 97% BMI 25.23 kg/m? Input and Output Intake/Output Summary (Last 24 hours) at 08/28/2022 0722 Last data filed at 08/28/2022 0716 Gross per 24 hour Intake 51815.5 ml Output 06744 ml Net -49642.5 ml Physical Exam GEN: Alert, NAD EYES: Anicteric CV: Warm and well perfused LUNGS: Unlabored breathing on RA ABD: Soft, appropriately tender : Hernandez catheter present Labs Recent Labs 08/27/22 0710 WBC 16.24* HB 13.4 HCT 38.5* PLT 214 NA 140 K 4.3 CHLOR 105 CO2 22 BUN 17 CREAT 0.79 GLUC 197* Imaging Reviewed Prema Feliz MD PGY-2 Resident Physician Urology Pager: [phone] For weekend or after hours issues please page the on-call urology pager at [phone] St[facility]07[facility]2023 NoteHNO ID: [id number] Author: Naomy Adkins MD Service: Urology Author [...] belladonna and opium suppositories, levsin, etc).[facility]07-09-2023 Evaluation + Plan noteExtracted from: Title:Urology [...] had a stent placed last saturday at [facility]. sees dr ivory Thank for consultation [...] BPH with urinary obstruction / SNOMED CT 3550406607 / Confirmed Kidney stone / SNOMED CT 602693922 / Confirmed Weak urinary stream / SNOMED CT 720513038 / Confirmed Microscopic hematuria / SNOMED CT 488211384 / Confirmed Diabetes / SNOMED CT 363470696 / Confirmed Hypertension / SNOMED CT 2054297941 / Confirmed Prostatitis / SNOMED CT 90209097 / Confirmed BPH without urinary obstruction / SNOMED CT 2877585433 / Confirmed Gross hematuria / SNOMED CT 217430932 / Confirmed Asymptomatic microscopic hematuria / SNOMED CT 5832674173 / Confirmed, Active Problems (10) Asymptomatic microscopic hematuria BPH with urinary obstruction BPH without urinary obstruction Diabetes Gross hematuria Hypertension Kidney stone Microscopic hematuria Prostatitis Weak urinary stream Histories Past Medical History: No active or resolved past medical history items have been selected or recorded. Family History: Hypertension Father Procedure history: Cystoscopy ([id number]) on 08/18/2013 at 68 Years. Comments: 10/02/2018 16:11 Katie Rincon MA 11/08/200904/2006 TURP - Transurethral resection of prostate ([id number]) in 2006 at 61 Years. Urodynamics ([id number]) in 2006 at 61 Years. Transrectal biopsy of prostate using ultrasound (US) guidance ([id number]) in 2005 at 60 Years. ESWL - Extracorporeal shockwave lithotripsy for renal calculus ([id number]) in 2000 at 55 Years. Comments: 10/02/2018 [...] Normal range of motion. Integumentary: Warm, Dry, [place]. Neurologic: Alert, Oriented, Normal sensory. Psychiatric: Cooperative, [...] % HI Lymph Auto 6.1 % LOW [place] Auto 4.9 % Eos Auto 0.9 % Basophil Auto 0.5 % Neutro Absolute 13.5 E9/L HI Lymph Absolute 0.9 E9/L LOW [place] Absolute 0.8 E9/L Eos Absolute 0.1 E9/L [...] and Plan Diagnosis Abnormal CT scan, bladder (THJ25-WQ R93.41, Working, Medical). Anticoagulated by anticoagulation treatment (MWQ66-GL Z79.01, Working, Medical). BPH with obstruction/lower urinary tract symptoms (QVA53-RY N40.1, Working, Medical). Gross hematuria (NOJ32-XW R31.0, Discharge, Medical). S/P TURP (status post transurethral resection of prostate) (QWD31-VH Z90.79, Working, Medical). Urinary retention (IUZ53-EX R33.9, Discharge, Medical). Course: Worsening, Viewed CT [...] not currently have available here at [facility] continuously. I discussed this extensively with [...] Date:11/02/2022 08:30:00 AM Scheduled Provider:Shanna IVORY MD Location:[facility] Appointment Type:URO Office Visit [facility]07-05-2023 Hospital Discharge instructions Additional Instructions DISCHARGE [...] doctor or pharmacist, without first calling the general ledger bookkeeper who implanted the stent. If you require [...] weight lifting, stair steppers, etc. until the general ledger bookkeeper approves these activities. Check with the general ledger bookkeeper on your first follow-up visit. CALL YOUR PHYSICIAN at [phone]: -If bleeding should occur from the catheter insertion site- apply pressure to the site then immediately call us. -Report any fever, redness, drainage, increased swelling, or firmness at the catheter insertion site. Some bruising or slight swelling may be present at the time of discharge. -Should arm or leg become cold, numb, white, or blue, contact the general ledger bookkeeper immediately. -IF you should experience episodes of [...] is recommended. Please call Central Scheduling at [phone] to schedule your appointment.] The attending general ledger bookkeeper or [facility] nurse clinician should provide you with specific [...] list with you to your next doctor's appointment.[facility] Work Phone: 1(391) 682-112207-04-2023 Consult note Author Juanito Barney [facility] August 21, 2022 11:41am Note Date/Time August 21, 2022 11:41 am [facility] [address] [place] [address] Pulmonology Consult Note Signed Patient: Olaf Briones MR#: [id number] : 1945 Acct:[id number] Age/Sex: 77 / M Adm Date: 3 Loc: Room: 6G0951-7 Type: REG SDC Attending Dr: Steven Zamora [...] ST elevation in the inferior lateral leads. Kick Press Setter was activated, patient received PCI to RCA. [...] 08/21/22 10:00 08/21/22 10:00 08/21/22 10:00 Narrative: COLLECTION MANAGER: Alert and oriented x3. No focal deficits. [...] found to have inferior lateral ST elevation MA along with complete heart block. Kick Press Setter was activated, patient received PCI to RCA. Patient is currently doing much better with no signs or symptoms of heart block,he is on room air. Optimizing cardiac meds as per cardiology. Glycemic control DVT prophylaxis Discussed with nursing staff Documented By: Juanito Barney MD 08/21/22 113 6 Signed By: <Electronically signed by Juanito Barney MD> 08/21/22 1141 [facility] Work Phone: 1(816) 365-589607-04-2023 Progress note Author Elpidio Andres [facility] August 21, 2022 8:11am Note Date/Time August 21, 2022 8:11a m [facility] [address] [place] [address] Cardiology Progress Note Signed Patient: Olaf Briones MR#: [id number] : 1945 Acct:[id number] Age/Sex: 77 / M Adm Date: 3 Loc: Room: [address] [place] [address] Type: REG SDC Attending Dr: Steven Zamora [...] % (Auto) 64.1 Lymph % (Auto) 26.2 [place] % (Auto) 7.9 Eos % (Auto) 1.3 Baso % (Auto) 0.5 Nucleat RBC Rel Count 0.1 Neut # (Auto) 6.9 Lymph # (Auto) 2.8 [place] # (Auto) 0.9 H Eos # (Auto) [...] MPV Neut % (Auto) Lymph % (Auto) [place] % (Auto) Eos % (Auto) Baso % (Auto) Nucleat RBC Rel Count Neut # (Auto) Lymph # (Auto) [place] # (Auto) Eos # (Auto) Baso # [...] MPV Neut % (Auto) Lymph % (Auto) [place] % (Auto) Eos % (Auto) Baso % (Auto) Nucleat RBC Rel Count Neut # (Auto) Lymph # (Auto) [place] # (Auto) Eos # (Auto) Baso # (Auto) Monocyte Dist Width PT INR APTT PHA Creatinine Clear Sodium Potassium Chloride Carbon Dioxide Anion Gap BUN Creatinine Est GFR (CKD-EPI) Glucose Calcium Total Creatine Kinase Troponin I High Sens 9010.4 H* 94634.3 H* 20454.9 H* B-Natriuretic Peptide Triglycerides Cholesterol LDL Cholesterol, Calc VLDL Cholesterol HDL Cholesterol Cholesterol/HDL Ratio 08/21/22 08/21/22 08/21/22 05:30 05:30 05:30 Corrected WBC 13.6 H Uncorrected WBC Count 13.6 H RBC 4.66 Hgb 14.6 Hct 42.7 MCV 91.6 MCH 31.4 MCHC 34.3 RDW 13.5 Plt Count 171 MPV 9.5 Neut % (Auto) 85.4 Lymph % (Auto) 8.2 [place] % (Auto) 6.1 Eos % (Auto) 0.1 Baso % (Auto) 0.2 Nucleat RBC Rel Count 0.0 Neut # (Auto) 11.7 H Lymph # (Auto) 1.1 [place] # (Auto) 0.8 Eos # (Auto) 0.0 Baso # (Auto) 0.0 Monocyte Dist Width PT INR APTT PHA Creatinine Clear 74.81 Sodium 138 Potassium 3.8 Chloride 103 Carbon Dioxide 27.1 Anion Gap 11.7 BUN 12 Creatinine 0.71 Est GFR (CKD-EPI) > 60.0 Glucose 162 H Calcium 9.4 Total Creatine Kinase Troponin I High Sens 20177.9 H* B-Natriuretic Peptide Triglycerides 124 Cholesterol 132 [...] evolution today [facility] (2) Heart block: Assessment/Problem Details: Resolved with uatsdin of flow to the dominant right coronary [...] signed by Elpidio Andres MD> 08/21/22 0811 [facility] Work Phone: 1(625) 679-878007-03-2023 History and physical note Author Steven Zamora [facility] August 20, 2022 6:29pm Note Date/Time August 20, 2022 6:24p m [facility] [address] [place] [address] Cardiology H&P Signed with Addenda Patient: Olaf Briones MR#: [id number] : 1945 Acct:[id number] Age/Sex: 77 / M Adm Date: 3 Loc: Room: [address] [place] [address] Type: REG [facility] Attending Dr: Steven Zamora DO Copies to: NON STAFF Steven Zamora DO~ ADDENDUM1 Impression: Inferolateral STEMI with change in complete heart block Plan: Proceed with emergent cath and PCI. A total of 60 minutes nonprocedural critical care time were devoted to the ER staff, review of ECG, Kick Press Setter staff, nursing staff, both patient and family [...] Discussed case with ER attending, reviewed ECGs; Kick Press Setter team activated, half amp of atropine ordered in addition to routine upstream antiplatelet and Antithrombin therapies. Patient arrived at the Kick Press Setter at 1659 underwent first balloon activation at [...] and no additional complaints, except as documented [facility] Medical History (Updated 08/20/22 @ 16:41 [...] x10E3/uL Lymph # (Auto) 2.8 (1.00-4.8) x10E3/uL [place] # (Auto) 0.9 H (0.0-0.8) x10E3/uL Eos [...] <Electronically signed by Steven Zamora DO> 08/20/221826 [facility] Work Phone: 1(296) 222-780107-03-2023 [facility] Procedure note [facility]07-03-2023 History general Narrative - Reported * Type Description Date Surgical History TURP 2022 Hospitalization History heart attack august 20 2022 [facility] Other 09-09-2022 Hospital Discharge instructions Patient Education [...] urethra. Follow these instructions at home: Take [id number] and prescription medicines only as told by [...] 02/04/2006 Document Revised: 12/30/2018 Document Reviewed: 03/11/2017 [employer] Patient Education 2020 [employer]. Follow Up Care 10/21/2020 08:48:14 With:CACHORRO HAHN, Shanna Sánchez, URL Address: [address] [id number]- When: Unknown [facility] consult note Author Juanito Barney [facility] August 21, 2022 11:41am Note Date/Time August 21, 2022 11:41 am [facility] [address] [id number] Pulmonology Consult Note Signed Patient: Olaf Briones MR#: [id number] : 1945 Acct:[id number] Age/Sex: 77 / M Adm Date: 3 Loc: Room: [address] [place] [address] Type: [facility] Attending Dr: Steven Zamora DO Copies [...] ST elevation in the inferior lateral leads. Kick Press Setter was activated, patient received PCI to RCA. [...] 08/21/22 10:00 08/21/22 10:00 08/21/22 10:00 Narrative: COLLECTION MANAGER: Alert and oriented x3. No focal deficits. [...] found to have inferior lateral ST elevation MA along with complete heart block. Kick Press Setter was activated, patient received PCI to RCA. Patient is currently doing much better with no signs or symptoms of heart block,he is on room air. Optimizing cardiac meds as per cardiology. Glycemic control DVT prophylaxis Discussed with nursing staff Documented By: Juanito Barney MD 08/21/22 113 6 Signed By: <Electronically signed by Juanito Barney MD> 08/21/22 1141 [facility] Work Phone: Discharge summary Author Steven Zamora [facility] August 22, 2022 3:21pm Note Date/Time August 22, 2022 3:17p m [facility] [address] [place] [address] Discharge Summary Signed Patient: Olaf Briones MR#: [id number] : 1945 Acct:[id number] Age/Sex: 77 / M Adm Date: 3 Loc: Room: [address] [place] [address]: Steven Zamora DO Copies to: [...] % (Auto) 72.5, Lymph % (Auto) 15.9, [place] % (Auto) 9.7, Eos % (Auto) 1.6, Baso % (Auto) 0.3, Nucleat RBC Rel Count 0.1, Neut # (Auto) 6.4, Lymph # (Auto) 1.4, [place] # (Auto) 0.9 H, Eos # (Auto) [...] doctor or pharmacist, without first calling the general ledger bookkeeper who implanted the stent. If you require [...] weight lifting, stair steppers, etc. until the general ledger bookkeeper approves these activities. Check with the general ledger bookkeeper on your first follow-up visit. CALL YOUR PHYSICIAN at [phone]: -If bleeding should occur from the catheter insertion site- apply pressure to the site then immediately call us. -Report any fever, redness, drainage, increased swelling, or firmness at the catheter insertion site. Some bruising or slight swelling may be present at the time of discharge. -Should arm or leg become cold, numb, white, or blue, contact the general ledger bookkeeper immediately. -IF you should experience episodes of [...] is recommended. Please call Central Scheduling at [phone] to schedule your appointment.] The attending general ledger bookkeeper or [facility] nurse clinician should provide you with specific instructions regarding activity, diet, medications, and further follow up for you. Follow the medication instructions provided on your discharge. If the dosages and instructions on this sheet differ from the dosage and instructions on the bottle, follow the instructions on the bottle. [facility] is not responsible for incorrect [...] signed by Steven Zamora DO> 08/22/22 1521 [facility] Work Phone: Evaluation + Plan note Future Appointments Appointment Date:11/02/2022 08:30:00 AM Scheduled Provider:Shanna IVORY MD Location:[facility] Appointment Type:URO Office Visit [facility] evaluation note* Diagnosis Onset Date Resolution Status Heart block acute ST elevation (STEMI) myocardial infarction acute Syncope acute [facility] Work Phone: Evaluation note* Diagnosis Arteriosclerotic cardiovascular disease- Primary Unspecified cardiovascular disease Abnormal EKG Nonspecific abnormal electrocardiogram (ECG) (EKG) Mixed hyperlipidemia Primary hypertension Unspecified essential hypertension Post PTCA Postsurgical percutaneous transluminal coronary angioplasty status Essential hypertension Unspecified essential hypertension BMI 26.0-26.9,adult Easy bruisability Other symptoms involving skin and integumentary tissues documented in this encounter [facility] Work Phone: History and physical note Author Steven Zamora [facility] August 20, 2022 6:29pm Note Date/Time August 20, 2022 6:24p m [facility] [address] [place] [address] Cardiology H&P Signed with Addenda Patient: Olaf Briones MR#: [id number] : 1945 Acct:[id number] Age/Sex: 77 / M Adm Date: 3 Loc: Room: [address] [place] [address] Type: REG [facility] Attending Dr: Steven Zamora DO Copies to: NON STAFF Steven Zamora DO~ ADDENDUM1 Impression: Inferolateral STEMI with change in complete heart block Plan: Proceed with emergent cath and PCI. A total of 60 minutes nonprocedural critical care time were devoted to the ER staff, review of ECG, Kick Press Setter staff, nursing staff, both patient and family [...] Discussed case with ER attending, reviewed ECGs; Kick Press Setter team activated, half amp of atropine ordered in addition to routine upstream antiplatelet and Antithrombin therapies. Patient arrived at the Kick Press Setter at 1659 underwent first balloon activation at [...] and no additional complaints, except as documented [facility] Medical History (Updated 08/20/22 @ 16:41 [...] x10E3/uL Lymph # (Auto) 2.8 (1.00-4.8) x10E3/uL [place] # (Auto) 0.9 H (0.0-0.8) x10E3/uL Eos [...] <Electronically signed by Steven Zamora DO> 08/20/221826 [facility] Work Phone: History of Present illness [...] notify me with change in cardiac status [facility] 250 DO Work Phone: History of Present [...] notify me with change in cardiac status [facility] 250 DO Work Phone: History of Present [...] he developed hematuria ultimately went to the [facility] where he underwent TURP and removal [...] me change in cardiac status or symptoms [facility] 250 DO Work Phone: Hospital course Narrative No data available for this section [facility] Hospital Discharge instructions No data available for this section [facility] No data available for this section [facility] progress note Author Elpidio Andres [facility] August 21, 2022 8:11am Note Date/Time August 21, 2022 8:11a m [facility] [address] [place] [address] Cardiology Progress Note Signed Patient: Olaf Briones MR#: [id number] : 1945 Acct:[id number] Age/Sex: 77 / M Adm Date: 3 Loc: Room: [address] [place] [address] Type: REG SDC Attending Dr: Steven Zamora [...] % (Auto) 64.1 Lymph % (Auto) 26.2 [place] % (Auto) 7.9 Eos % (Auto) 1.3 Baso % (Auto) 0.5 Nucleat RBC Rel Count 0.1 Neut # (Auto) 6.9 Lymph # (Auto) 2.8 [place] # (Auto) 0.9 H Eos # (Auto) [...] MPV Neut % (Auto) Lymph % (Auto) [place] % (Auto) Eos % (Auto) Baso % (Auto) Nucleat RBC Rel Count Neut # (Auto) Lymph # (Auto) [place] # (Auto) Eos # (Auto) Baso # [...] MPV Neut % (Auto) Lymph % (Auto) [place] % (Auto) Eos % (Auto) Baso % (Auto) Nucleat RBC Rel Count Neut # (Auto) Lymph # (Auto) [place] # (Auto) Eos # (Auto) Baso # (Auto) Monocyte Dist Width PT INR APTT PHA Creatinine Clear Sodium Potassium Chloride Carbon Dioxide Anion Gap BUN Creatinine Est GFR (CKD-EPI) Glucose Calcium Total Creatine Kinase Troponin I High Sens 9010.4 H* 56095.3 H* 11415.9 H* B-Natriuretic Peptide Triglycerides Cholesterol LDL Cholesterol, Calc VLDL Cholesterol HDL Cholesterol Cholesterol/HDL Ratio 08/21/22 08/21/22 08/21/22 05:30 05:30 05:30 Corrected WBC 13.6 H Uncorrected WBC Count 13.6 H RBC 4.66 Hgb 14.6 Hct 42.7 MCV 91.6 MCH 31.4 MCHC 34.3 RDW 13.5 Plt Count 171 MPV 9.5 Neut % (Auto) 85.4 Lymph % (Auto) 8.2 [place] % (Auto) 6.1 Eos % (Auto) 0.1 Baso % (Auto) 0.2 Nucleat RBC Rel Count 0.0 Neut # (Auto) 11.7 H Lymph # (Auto) 1.1 [place] # (Auto) 0.8 Eos # (Auto) 0.0 Baso # (Auto) 0.0 Monocyte Dist Width PT INR APTT PHA Creatinine Clear 74.81 Sodium 138 Potassium 3.8 Chloride 103 Carbon Dioxide 27.1 Anion Gap 11.7 BUN 12 Creatinine 0.71 Est GFR (CKD-EPI) > 60.0 Glucose 162 H Calcium 9.4 Total Creatine Kinase Troponin I High Sens 72509.9 H* B-Natriuretic Peptide Triglycerides 124 Cholesterol 132 [...] evolution today [facility] (2) Heart block: Assessment/Problem Details: Resolved with uatsdin of flow to the dominant right coronary [...] signed by Elpidio Andres MD> 08/21/22 0811 [facility] Work Phone: Reason for referral (narrative)* Consultation (Routine) - Authorized Specialty Diagnoses / Procedures Referred By Contac t Referred To Contact Cardiology Diagnoses Arteriosclerotic cardiovascular disease Abnormal EKG Mixed hyperlipidemia Procedures Follow Up In Cardiology Ashutosh Ling MD [address] [facility] [address], [address] [address] Ashutosh Ling MD [address] [facility] [address], [address] [place] [address] Referral ID Status Reason Start Date Expiration Date V isits Requested Visits Authorized [id number] Authorized 01/09/2023 01/09/2024 1 1 [facility] Work Phone: Family History No Family [...] Active Steven Zamora DO Attending Provider Active 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 Relationship Specialty Start Date End Date Jame Barraza MD [address] [place] [address] PCP - General Family Medicine 08/31/22 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 Relationship Specialty Start Date End Date Jame Barraza MD [address] [place] [address] PCP - General Family Medicine 08/31/22 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 Relationship Specialty Start Date End Date Ashutosh Ling MD [address] [facility] [address] [place] [address] PCP - [employer] PCP 08/18/22 Dav Peguero MD [facility] [address] [place] [address] PCP - General Family Medicine 01/09/23 (unrecognized sect ion and content) No Status Records FoundNo Status Records FoundNo Status Records FoundNo Status Records FoundNo Status Records FoundNo Status Records FoundNo Status Records FoundNo Status Records FoundNo Status Records Found INFORMATION SOURCE (unrecogn ized section and content) DATE CREATED AUTHOR 11/15/2021 [facility] DATE CREATED AUTHOR AUTHOR'S ORGANIZ ATION 09/01/2022 [facility] DATE CREATED AUTHOR AUTHOR'S ORGANIZ ATION 09/06/2022 [employer] DATE CREATED AUTHOR AUTHOR'S ORGANIZ ATION 09/07/[address] [facility] DATE CREATED AUTHOR AUTHOR'S ORGANIZ ATION 10/10/2022 [facility] DATE CREATED AUTHOR AUTHOR'S ORGANIZ ATION 11/27/2022 [facility] DATE CREATED AUTHOR AUTHOR'S ORGANIZ ATION 01/12/2023 [facility] DATE CREATED AUTHOR AUTHOR'S ORGANIZ ATION 03/13/2023 [facility] DATE CREATED AUTHOR AUTHOR'S ORGANIZ ATION 03/13/2023 [facility] Goals (unrecognized section and content) Goals may be documented in a n alternate section Source Comments (unrecognize d section and content) In the event this informatio n is protected by the Federal Confidentiality of Alcohol and Drug Abuse Patient Records regulations: The Federal rules restrict any use of the information to criminally investigate or prosecute any alcohol or drug abuse patient.[facility] the event this information is protected by the Federal Confidentiality of Alcohol and Drug Abuse Patient Records regulations: The Federal rules restrict any use of the information to criminally investigate or prosecute any alcohol or drug abuse patient.[facility] FOR RECORDS PERTAINING TO PATIENTS WHO [...] BE BASED ON THE PRIMARY CLINICAL RECORDS. [facility] [employer] [facility]. provides no warranty or guarantee of the accuracy or completeness of information in this document.
--- NOTE | 2023-04-03 09:22 | PM.CN ---
Consult Note: HPI Data of Consult Patient: known to practice within the last 3 years Requesting Physician: Ria Kirby NP Primary Care Provider: DAV PEGUERO Consult Narrative Reason for consult: establish care Narrative: Thomas Thorne a pleasant 77 year old male presents for evaluation and management of low back pain. Today rating pain 0/10 in low back and bilateral thighs, Patient has benefitted from back bracing and PRN tylenol. Patient reporting 100% pain relief and functional improvement from bilateral L3/4 TFESI and bilateral L4/5 TFESI. MAURICIO 0%. no pain, feels great , patient very pleased with recent injection therapy. cc:: CC: Ria Kirby NP Review of Systems ROS Status of ROS 10 or more systems reviewed and unremarkable except as noted in history and below [facility] Medical History (Updated 02/28/23 @ 10:06 by Paula Be) Enlarged prostate ?N40.0 - Benign prostatic hyperplasia without lower urinary tract symptoms (ICD-10) Low back pain ?M54.50 - Low back pain, unspecified (ICD-10) Hypertension ?I10 - Essential (primary) hypertension (ICD-10) Kidney stone Surgical History History of transurethral resection of prostate ?Z98.890 - Other specified postprocedural states (ICD-10) ?Z90.79 - Acquired absence of other genital organ(s) (ICD-10) Meds Home Medications and Allergies Home Medications Medication Instructions Recorded Confirmed Type allopurinol 300 mg tablet 300 mg PO DAILY 01/23/23 03/18/23 History amlodipine 5 mg tablet 5 mg PO DAILY 01/23/23 03/18/23 History aspirin 81 mg tablet,delayed 81 mg PO DAILY 01/23/23 03/18/23 History release atorvastatin 80 mg tablet 40 mg PO DAILY 01/23/23 03/18/23 History carvedilol 6.25 mg tablet 6.25 mg PO Q12H 01/23/23 03/18/23 History lisinopril 2.5 mg tablet 2.5 mg PO DAILY 01/23/23 03/18/23 History nitroglycerin 0.4 mg sublingual 0.4 mg sublingual Q5M PRN chest 01/23/23 03/04/23 History tablet pain ticagrelor 90 mg tablet (Brilinta) 90 mg PO Q12H 01/23/23 03/18/23 History Allergies Allergy/AdvReac Type Severity Reaction Status Date / Time albuterol Allergy Verified 03/18/23 08:41 hydrochlorothiazide Allergy Verified 03/18/23 08:41 Exam Constitutional Documenting provider has reviewed patient's vital signs: yes Common normals: no apparent distress, oriented x3, healthy appearing, alert and well nourished General appearance: cooperative HENMT Common normals: normocephalic, hearing grossly normal bilaterally and moist oral mucous membranes Head and scalp: normocephalic Eye Common normals: PERRL Pupil: PERRL Neck & C-Spine Common normals: full ROM General: normal visual inspection Chest Common normals: inspection of chest normal Respiratory Common normals: normal respiratory effort, no retractions and no use of accessory muscles Back & Pelvis Lumbar spine/lower back: lumbar ROM normal and straight leg raise negative bilaterally Extremity Common normals: normal to inspection and full ROM Neuro Common normals: oriented x3, CN's II-XII intact bilaterally, moves all extremities, no focal motor deficits, no sensory deficits noted, deep tendon reflexes 2+ bilaterally and gait normal Sensorium/orientation: alert Motor exam: strength 5/5 throughout and no movement abnormalities noted Psych Common normals: mental status grossly normal, thought process normal, cooperative, affect normal, speech normal and activity/motor behavior normal Speech: normal speech Thought process: normal thought process Results Additional Findings Additional findings: I have checked an OARRS report on this patient today and there are no aberrancies noted in the prescribing history.?? A drug screen was completed and reviewed within the last year, and if there has not been a drug screen completed we ordered one today to monitor higher risk, state monitored pain medication use. As part of providing excellent, safe, comprehensive care, the following was completed at our patient's visit: 1. A medication reconciliation and review to ensure accurate knowledge of current/active medications, including asking our patients to inform us about any [id number] medications or herbal remedies/nutritional supplements/alternative remedies. 2. A review to specifically ensure our patients have had annual screening for: elevated body mass index (BMI), tobacco use, screening for depression, and screening for unhealthy alcohol use. When screening is concerning, patients are provided with education and the specific recommendation to discuss the concerning health issue and treatment options with their primary care provider. Assessment and Plan Assessment and Plan (1) Lumbar stenosis with neurogenic claudication: Plan continue HEP as tolerated f/u 3 months, sooner if needed
== END 2023-04-03 08:55 | disposition home or self-care (01) ==
PROVIDERS: PCP Family Medicine; Visit Provider Nurse Practitioner
DX: M48.062 Spinal stenosis, lumbar region with neurogenic claudication (principal)
CPT/HCPCS: G0463

== ENCOUNTER 2023-06-11 08:34 | Outpatient (OUT) | payer MEDICARE, SELFPAY ==
--- NOTE | 2023-06-11 07:40 | NM_ITS ---
Patient Name: OLAF BRIONES MR#: [id number] : 1945 Exam Date: 06/11/2023 Ordering Doctor: DR DAV PEGUERO M.D. RADIOLOGY REPORT PROCEDURE: NM TARA PERF SPECT REST STR COMPARISON: None. INDICATIONS: CHEST PAIN, CORONARY ARTERY DISEASE TECHNIQUE: Exam Description: Stress/Rest one day protocol gated SPECT Rest Imagin.3 mCi Tc-99m Cardiolite IV on 06/11/2023 Stress Imaging 30.2 mCi Tc-99m Cardiolite IV on 06/11/2023 Exercise Protocol: Ivan Heart Rate (bpm): Rest: 70 Max: 134 PMHR: 93 Blood Pressure: Rest: 168/82 Max: 192/86 Exercise Time: Minutes: 4 Seconds: 24 Stage Reached: Stage: 2 Mets 7.0 Symptoms: Rest and peak stress ECG findings were abnormal and the exercise portion of the study was abnormal per attending physician Dr. Tucker due to EKG changes. For more details please see separate cardiac stress test report. FINDINGS: QUALITY OF STUDY: PERFUSION DEFECT: LOCATION: Basal inferoseptal. Basal inferior. SIZE: Small (1-2 segments). SEVERITY: Mild. TYPE: Persistent. WALL MOTION: Normal. LV SIZE: Normal. 106 mL. TID / TCD: None; 0.9 LVEF: Normal. Calculated EF 61%. SUMMARY: Myocardial perfusion imaging study has ABNORMAL findings. CONCLUSION: 1. Small fixed area of mildly decreased uptake in the inferior wall, RCA distribution on stress images with no evidence of reversibility 2. Abnormal exercise test secondary to EKG changes Dictated by: Amrik Dubose MD on 06/11/2023 at 13:24 Approved by: Amrik Dubose MD on 06/11/2023 at 13:27
--- NOTE | 2023-06-11 11:08 | P.STRESS_ITS ---
Stress Test Stress Test Allergies Allergy/AdvReac Type Severity Reaction Status Date / Time albuterol Allergy Verified 03/18/23 08:41 hydrochlorothiazide Allergy Verified 03/18/23 08:41 Requesting physician: DAV PEGUERO Procedure: Exercise Cardiolite stress test General Information: Reason for Stress Test: CAD Cardiac History and Risk Factors: History of DE & stent. Resting 12 - Lead Electrocardiogram: Rate & rhythm: Normal sinus at a rate of 63. [place]: Normal T-waves: Inverted/biphasic in III and aVF ST-segments: Normal orientation PVC noted Stress Test: Protocol: Ivan protocol was followed, with injection of Cardiolite once target heart rate was achieved. Exercise capacity: Fair exercise capacity. Total exercise time of 4 minutes 25 seconds reached Ivan stage 2 at 2.5MPH, 12% grade, & 7 METs. Blood pressure: Initial: 168/82, Maximum: 192/86 Rate & rhythm: Patient remained in sinus rhythm during the exercise and recovery portions of the study.? The maximum heart rate was 134, which was 93% of the maximum predicted heart rate. PACs and PVCs, including a couplet, were noted. ST-segments & T-waves: At peak exercise (4m 16sec), ST-segment downsloping/depression were noted in leads II, III, V5, and V6 but there was artifact which makes it difficult to verify this. However, 4 minutes into recover, he developed ST segment downsloping in V5 & V6. Patient response/symptoms: No chest pain reported. Interpretation: Abnormal stress test with definitive ST segment downsloping in the lateral leads (V5, V6). No chest pain reported. Cardiolite imaging interpretation will be reported separately. Clinical correlation required.?
== END 2023-06-11 08:35 | disposition home or self-care (01) ==
LOC: NM 08:35
PROVIDERS: PCP Family Medicine; Visit Provider Family Medicine
DX: I25.118 Atherosclerotic heart disease of native coronary artery with other forms of angina pectoris (principal); I25.119 Atherosclerotic heart disease of native coronary artery with unspecified angina pectoris
CPT/HCPCS: 78452; 93017; A9500

== ENCOUNTER 2023-07-04 08:40 | Outpatient (OUT) | payer MEDICARE, SELFPAY ==
--- NOTE | 2023-07-04 08:53 | P.CN_ITS ---
Consult Note: HPI Data of Consult Patient: known to practice within the last 3 years Requesting Physician: Ria Kirby NP Primary Care Provider: DAV PEGUERO Consult Narrative Reason for consult: chronic back pain with NC Narrative: Thomas Thorne a pleasant 78 year old male presents for evaluation and management of low back and bilateral leg pain. Today rating pain 3/10 in low back and bilateral thighs, increasing to 8/10 with standing walking transitioning and activity, improved with sitting and rest, Patient has benefitted from back bra cing and PRN tylenol. Patient found significant improvement from prior ESIs and would like to discuss repeating. Continuing to follow with cardiology post CT, on Brilinta currently planning to transition to plavix. cc:: CC: Ria Kirby NP Review of Systems ROS Status of ROS 10 or more systems reviewed and unremark able except as noted in history and below Musculoskeletal Reports: back pain PFSH PFSH Medical History Enlarged prostate ?N40.0 - Benign prostatic hyperplasia without lower urinary tract symptoms (ICD-10) Low back pain ?M54.50 - Low back pain, unspecified (ICD-10) Hypertension ?I10 - Essential (primary) hypertension (ICD-10) Kidney stone Surgical History History of transurethral resection of prostate ?Z98.890 - Other specified postprocedural states (ICD-10) ?Z90.79 - Acquired absence of other genital organ(s) (ICD-10) Meds Home Medications and Allergies Home Medications ?Medication ?Instructions ?Recorded ?Confirmed ?Type allopurinol 300 mg tablet 300 mg PO DAILY 01/23/23 03/18/23 History amlodipine 5 mg tablet 5 mg PO DAILY 01/23/23 03/18/23 History aspirin 81 mg tablet,delayed 81 mg PO DAILY 01/23/23 03/18/23 History release atorvastatin 80 mg tablet 40 mg PO DAILY 01/23/23 03/18/23 History carvedilol 6.25 mg tablet 6.25 mg PO Q12H 01/23/23 03/18/23 History lisinopril 2.5 mg tablet 2.5 mg PO DAILY 01/23/23 03/18/23 History nitroglycerin 0.4 mg sublingual 0.4 mg sublingual Q5M PRN chest 01/23/23 03/04/23 History tablet pain ticagrelor 90 mg tablet (Brilinta) 90 mg PO Q12H 01/23/23 03/18/23 History Allergies Allergy/AdvReac Type Severity Reaction Status Date / Time albuterol Allergy Verified 03/18/23 08:41 hydrochlorothiazide Allergy Verified 03/18/23 08:41 Exam Constitutional Documenting provider has reviewed patient's vital signs: yes Common normals: no apparent distress, oriented x3, healthy appearing, alert and well nourished General appearance: cooperative HENMD Common normals: normocephalic, hearing grossly normal bilaterally and moist oral mucous membranes Head and scalp: normocephalic Eye Common normals: PERRL Pupil: PERRL Neck & C-Spine Common normals: full ROM General: normal visual inspection Chest Common normals: inspection of chest normal Respiratory Common normals: normal respiratory effort, no retractions and no use of accessory muscles Back & Pelvis Lumbar spine/lower back: ROM limited, pain with ROM, straight leg raise positive right and straight leg raise positive left Other: decreased sensation following bilateral L4-5 pattern, strength 4/5 in BLE Extremity Common normals: normal to inspection and full ROM Neuro Common normals: oriented x3, CN's II-XII intact bilaterally, moves all extremities, no focal motor deficits, no sensory deficits noted and deep tendon reflexes 2+ bilaterally Sensorium/orientation: alert Motor exam: no movement abnormalities noted and strength abnormal Psych Common normals: mental status grossly normal, thought process normal, cooperative, affect normal, speech normal and activity/motor behavior normal Speech: normal speech Thought process: normal thought process Results Additional Findings Additional findings: If on a controlled substance or opioids, I have checked an OARRS report on this patient and there are no aberrancies noted in the prescribing history.??If on a controlled substance or opioid a drug screen was completed and reviewed within the last year, and if there has not been a drug screen completed we ordered one today to monitor higher risk, state monitored pain medication use. As part of providing excellent, safe, comprehensive care, the following was completed at our patient's visit: 1. A medication reconciliation and review to ensure accurate knowledge of current/active medications, including asking our patients to inform us about any [id number] medications or herbal remedies/nutritional supplements/alternative remedies. 2. A review to specifically ensure our patients have had annual screening for screening for depression, screening for tobacco use, and screening for unhealthy alcohol use. For concerning screenings had a discussion with the patient, provided patient education, and recommended follow-up with primary care provider when appropriate. If patient noted with a risk of falling, they received education on strength, gait, and balance training to prevent future risk of falling. Assessment and Plan Assessment and Plan (1) Lumbar stenosis with neurogenic claudication: Plan repeat bilateral L4-5 TFESI under fluoroscopy, risks vs benefits reviewed. Prior KATIE provided >50% improvement in pain and functional ability greater than 3 months. will request blood thinner hold consider vertiflex in the future, educational handout provided continue HEP as tolerated, has completed greater than 6 weeks without significant improvement continue f/u with cardiology f/u 2 weeks after KATIE
== END 2023-07-04 08:41 | disposition home or self-care (01) ==
LOC: PM 08:40
PROVIDERS: PCP Family Medicine; Visit Provider Nurse Practitioner
DX: I25.118 Atherosclerotic heart disease of native coronary artery with other forms of angina pectoris (principal); I25.119 Atherosclerotic heart disease of native coronary artery with unspecified angina pectoris; M48.062 Spinal stenosis, lumbar region with neurogenic claudication
CPT/HCPCS: G0463

== ENCOUNTER 2023-07-22 09:47 | Day surgery (SDC) | payer MEDICARE, SELFPAY ==
[2023-07-22 10:07] VITALS: BP 165/78; PULSE 73; TEMP 36.8; O2SAT 98
[2023-07-22 10:38] VITALS: PULSE 65; O2SAT 94
[2023-07-22] MEDS: BUPIVACAINE HCL 0.25% PF 25 MG/10 ML VIAL INJ (10:38)
[2023-07-22] MEDS: 0.9 % SODIUM CHLORIDE 10 ML SYRINGE - SALINE FLUSH INJ (10:38)
[2023-07-22] MEDS: IOHEXOL 240 MG/ML - 10 ML VIAL INJ (10:39)
[2023-07-22] MEDS: TRIAMCINOLONE ACETONIDE 40 MG/ML VIAL INJ (10:39)
[2023-07-22] MEDS: LIDOCAINE HCL 2% PF 100 MG/5 ML VIAL INJ (10:40)
[2023-07-22 10:42] VITALS: BP 150/70; BP 153/71; PULSE 60; O2SAT 94
--- NOTE | 2023-07-22 10:43 | W.PM.PROCNOT ---
Date of procedure: 07/22/23 Pre-op diagnosis: Lumbar stenosis with neurogenic claudication Post-op diagnosis: same as pre-op Procedure: Procedure: Bilateral L4-5 transforaminal epidural steroid injection Medications: Bupivacaine 0.25% 2cc, lidocaine 2% 1cc, kenalog 80mg The patient was seen and examined in the preoperative holding area.? Informed consent was obtained and placed on the chart.? Patient was brought to the medical procedure unit and placed in the prone position where a timeout was completed verifying the correct patient, procedure site, position, and planned special equipment using sterile aseptic technique.? Under direct fluoroscopic visualization a 25-gauge Quincke tipped spinal needle was advanced at level left L4-5 to the designated neural foramen where contrast dye was injected to show adequate spread.? There was no evidence of vascular or adverse uptake.? Epidural spread was appreciated.? The above-mentioned injectate was then placed in a 1.5 mL aliquot preceded by negative aspiration.? The needle was removed. The same procedure, at the same level, was completed on the opposite side. ? Patient was taken to the postprocedural recovery area and monitored for an appropriate length of time before found suitable for discharge in the accompaniment of a responsible adult. Anesthesia: Local Surgeon: Alonzo Briscoe Pathology: none sent Condition: stable Disposition: no change
== END 2023-07-22 10:48 | disposition home or self-care (01) ==
LOC: SURGOUT 09:48
PROVIDERS: PCP Family Medicine; Visit Provider Anesthesiology
DX: M48.062 Spinal stenosis, lumbar region with neurogenic claudication (principal)
CPT/HCPCS: 64483; Q9966

== ENCOUNTER 2023-08-01 09:24 | Outpatient (OUT) | payer MEDICARE, SELFPAY ==
--- NOTE | 2023-08-01 09:39 | P.CN_ITS ---
Consult Note: HPI Data of Consult Patient: known to practice within the last 3 years Requesting Physician: Ria Kirby NP Primary Care Provider: DAV PEGUERO Consult Narrative Reason for consult: chronic back pain with NC Narrative: Thomas Thorne a pleasant 78 year old male presents for evaluation and management of low back and bilateral leg pain. Today rating pain 0/10 in low back and bilateral thighs, increasing to 3/10 with standing walking transitioning and activity, improved with sitting and rest, Patient has benefitted from back bra cing and PRN tylenol. Continuing to follow with cardiology post MN, now on plavix. Patient recently underwent bilateral L4-5 TFESI with >90% improvement in pain and functional ability ongoing. MAURICIO 9%, patient reports significant improvement in standing walking and mowing yards. cc:: CC: Ria Kirby NP Review of Systems ROS Status of ROS 10 or more systems reviewed and unremark able except as noted in history and below PFSH PFSH Medical History Enlarged prostate ?N40.0 - Benign prostatic hyperplasia without lower urinary tract symptoms (ICD-10) Low back pain ?M54.50 - Low back pain, unspecified (ICD-10) Hypertension ?I10 - Essential (primary) hypertension (ICD-10) Kidney stone Surgical History History of transurethral resection of prostate ?Z98.890 - Other specified postprocedural states (ICD-10) ?Z90.79 - Acquired absence of other genital organ(s) (ICD-10) Meds Home Medications and Allergies Home Medications ?Medication ?Instructions ?Recorded ?Confirmed ?Type allopurinol 300 mg tablet 300 mg PO DAILY 01/23/23 07/22/23 History amlodipine 5 mg tablet 5 mg PO DAILY 01/23/23 07/22/23 History aspirin 81 mg tablet,delayed 81 mg PO DAILY 01/23/23 07/22/23 History release atorvastatin 80 mg tablet 40 mg PO DAILY 01/23/23 07/22/23 History carvedilol 6.25 mg tablet 6.25 mg PO Q12H 01/23/23 07/22/23 History lisinopril 2.5 mg tablet 2.5 mg PO DAILY 01/23/23 07/22/23 History nitroglycerin 0.4 mg sublingual 0.4 mg sublingual Q5M PRN chest 01/23/23 07/22/23 History tablet pain ticagrelor 90 mg tablet (Brilinta) 90 mg PO Q12H 01/23/23 07/22/23 History Allergies Allergy/AdvReac Type Severity Reaction Status Date / Time amoxicillin Allergy Unknown Verified 07/22/23 10:03 albuterol Allergy Verified 07/22/23 10:03 hydrochlorothiazide Allergy Verified 07/22/23 10:03 Exam Constitutional Documenting provider has reviewed patient's vital signs: yes Common normals: no apparent distress, oriented x3, healthy appearing, alert and well nourished General appearance: cooperative HENMT Common normals: normocephalic, hearing grossly normal bilaterally and moist oral mucous membranes Head and scalp: normocephalic Eye Common normals: PERRL Pupil: PERRL Neck & C-Spine Common normals: full ROM General: normal visual inspection Chest Common normals: inspection of chest normal Respiratory Common normals: normal respiratory effort, no retractions and no use of accessory muscles Back & Pelvis Lumbar spine/lower back: normal to inspection, lumbar ROM normal and straight leg raise negative bilaterally Other: strength 5/5 in BLE sensation intact BLE Extremity Common normals: normal to inspection and full ROM Neuro Common normals: oriented x3, CN's II-XII intact bilaterally, moves all extremities, no focal motor deficits, no sensory deficits noted and deep tendon reflexes 2+ bilaterally Sensorium/orientation: alert Motor exam: strength 5/5 throughout and no movement abnormalities noted Psych Common normals: mental status grossly normal, thought process normal, cooperative, affect normal, speech normal and activity/motor behavior normal Speech: normal speech Thought process: normal thought process Results Additional Findings Additional findings: If on a controlled substance or opioids, I have checked an OARRS report on this patient and there are no aberrancies noted in the prescribing history.??If on a controlled substance or opioid a drug screen was completed and reviewed within the last year, and if there has not been a drug screen completed we ordered one today to monitor higher risk, state monitored pain medication use. As part of providing excellent, safe, comprehensive care, the following was completed at our patient's visit: 1. A medication reconciliation and review to ensure accurate knowledge of current/active medications, including asking our patients to inform us about any [id number] medications or herbal remedies/nutritional supplements/alternative remedies. 2. A review to specifically ensure our patients have had annual screening for s creening for depression, screening for tobacco use, and screening for unhealthy alcohol use. For concerning screenings had a discussion with the patient, provided patient education, and recommended follow-up with primary care provider when appropriate. If patient noted with a risk of falling, they received education on strength, gait, and balance training to prevent future risk of falling. Assessment and Plan Assessment and Plan (1) Lumbar stenosis with neurogenic claudication: Plan patient doing very well at this time, recent bilateral L4-5 TFESI providing >90% improvement in pain and functional ability consider vertiflex in the future, educational handout provided continue HEP as tolerated, has completed greater than 6 weeks without significant improvement continue f/u with cardiology f/u 3 months, sooner if needed
== END 2023-08-01 09:25 | disposition home or self-care (01) ==
LOC: PM 09:24
PROVIDERS: PCP Family Medicine; Visit Provider Nurse Practitioner
DX: M48.062 Spinal stenosis, lumbar region with neurogenic claudication (principal)
CPT/HCPCS: G0463

== ENCOUNTER 2023-09-13 07:26 | Outpatient (OUT) | payer OTHER, SELFPAY ==
--- OUTSIDE RECORDS SUMMARY | 2023-09-13 07:29 | XMS_ITS | CCD ---
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 Role Phone Jame Barraza Unavailable Unavailable Unavailable JAME BARRAZA Primary Care Physician DR SHANNA IVORY Attending Unavailable CHRIS, DR JAME Bowers Primary Care Unavailable DR SHANNA IVORY Admitting Unavailable DR SHANNA IVORY Consulting Unavailable NICOLASA, DR AMNA Saucedo Consulting Unavailable DOMINGUEZ GUTIERREZ Admitting Unavailable DOMINGUEZ GUTIERREZ Attending Unavailable DR JAME BARRAZA Primary Care Unavailable NON STAFF Primary Care Provider UnavailDO Shannon Perez Emergency Provider DO Steven Zamora Attending Provider NON STAFF Primary Care Provider Unavailsigrid Cochran DO Shannon Emergency Provider [phone] DO Steven Zamora Admit Provider DO Steven Zamora Attending Provider MD Juanito Barney Other Provider JAME BARRAZA Primary Care Physician Steven Zamora Admitting Unavailable Steven Zamora Attending Unavailable NON STAFF Primary Care Unavailable Juanito Barney Consulting Unavailable Jame Barraza MD Primary Care Provider [phone] Nahomi Hernandez Unavailable DAVID ANDREWS Attending Unavailable DAVID ANDREWS Admitting Unavailable Dr. Jame Barraza Primary Care Unavailab alda Ling, Dr. Canada Attending Unavailusama Ling, Dr. Canada Referring Unavaila ashley Barraza, Dr. Jame Fountain Primary Care Unavailab Dr. Nahomi Curtis Primary Care Unavailab alda Ling, Dr. Canada Attending Unavaila ble Trabvivienne, Dr. Canada Referring Unavaila ashley Zamora, Dr. Ben Wilson Attending Kushal Hernandez, Dr. Nahomi Guerrero Primary Care Unavailab alda Barraza, Dr. Jame Fountain Primary Care Unavailab alda Barraza, Dr. Jame Fountain Primary Care Unavailab le Chen, Estella Unavailable Shanna IVORY Attending Unavailable Shanna IVORY Attending Unavailable Halakisha, Astrit H Attending Unavailable Alexandre KOROMA Attending Unavailable Alexandre KOROMA Referring Unavailable Alexandre KOROMA Attending Unavailable Ashutosh Ling MD Unavailable Sudhir HAHN, Dav [facility] DAV PEGUERO Attending Unavailable SUDHIR, DAV Martinez Attending Unavailable HEMMERLUCINDA Attending Unavailable Dav Peguero MD [facility] Primary [facility] Provider [phone] ASHUTOSH LING Attending Unavailable SUDHIRDAV Morelos Primary Care Unavailable ASHUTOSH LING Attending Unavailable ASHUTOSH LING Referring Unavailable [facility]IR [facility] Unavailable Girenetta HAHN, Andmarc Bobo Attending Unavailable Gibobitis , Andrius Jihan Attending Unavailable Gieditis , Andrius Vytcherelle Attending Unavailable Gieditis , Andrius Jihan Attending Unavailable Allergies Allergy Classification Reported Allergen(s) Allergy Type Date of Onset Reaction(s) Facility (20 sources) Albuterol; Translations: [albuterol] Drug Allergy 11-12-19 12 Headache (finding), Other: See Comments, Headache [facility] (18 sources) hydroCHLOROthiazide; Translations: [hydroCHLOROthiazide TABS] Drug Allergy 08-21-19 23 Eruption of skin (disorder), Rash [facility] (4 sources) Sulfamethoxazole / Trimethoprim; Translations: [sulfamethoxazole-trim ethoprim] Drug Allergy Unknown (qualifier value) [facility] (1 source) Albuterol Drug Allergy [facility] (6 sources) hydroCHLOROthiazide; Translations: [HYDROCHLOROTHIAZIDE] Drug Allergy 08-21-19 Rash [facility] (2 sources) Adhesive Tape; Translations: [adhesive tape] Propensity to adverse reactions 08-22-[address] [facility] (1 source) Albuterol Drug Allergy 08-21-[address] [facility] Repository (1 source) hydroCHLOROthiazide Drug Allergy 08-21-[address] [facility] Rep[facility] Medications Current Medications Medication Drug Class(es) Dates Sig (Normalized) Sig (Original) Albuterol (1 source) beta2-Adrenergic Agonist Albuterol Active aspirin 81 mg delayed release oral tablet (17 sources) Platelet Aggregation Inhibitor, Nonsteroidal Anti-inflammatory Drug [...] Take 81 mg by mouth once daily. carvedilol 3.125 mg oral tablet (12 sources) alpha-Adrenergic Reynaldo, beta-Adrenergic Reynaldo Start: End: take 1 tablet by mouth twice daily at mealtime carvedilol (Coreg) 3.125 mg tablet Indications: Arteriosclerotic cardiovascular disease , Essential hypertension Take 1 tablet (3.125 mg) by mouth 2 times a day with meals. 60 tablet 11 06/26/2023 06/25/2024 Active Start: 08-22-2022 End: 06-26-2023 take 1 tablet by mouth twice daily at mealtime carvedilol (COREG) 6.25 mg tablet Take 6.25 mg by mouth twice daily with meals. 0 08/22/2022 Active Comment on above: Take 6.25 mg by mout h twice daily with meals. citalopram 10 mg oral tablet (1 source) Serotonin Reuptake Inhibitor Start: 2023 take 1 tablet by mouth once daily citalopram (CeleXA) 10 mg tablet Take 1 tablet (10 mg) by mouth once daily. 06/18/2023 Active clopidogrel 75 mg oral tablet (1 source) P2Y12 Platelet Inhibitor Start: 2023 End: 2024 take 1 tablet by mouth once daily clopidogrel (Plavix) 75 mg tablet Indications: Arteriosclerotic cardiovascular disease Take 1 tablet (75 mg) by mouth once daily. 90 tablet 3 06/26/2023 06/25/2024 Active hydroCHLOROthiazide (1 source) Thiazide Diuretic hydroCHLOROthiazide Active Completed/Discontinued Medications Medication Drug Class(es) Dates Sig (Normalized) Sig (Original) allopurinol 300 mg oral tablet (20 sources) Xanthine Oxidase Inhibitor Start: 10-02-2018 take 1 tablet by mouth once daily allopurinol (ZYLOPRIM) 300 mg tablet Take 300 mg by mouth once daily. 0 10/02/2018 Active Comment on above: Take 300 mg by mouth once daily. amLODIPine 5 mg oral tablet (20 sources) Dihydropyridine Calcium Channel Reynaldo Start: 10-24-2018 take 1 tablet by mouth once daily amLODIPine (NORVASC) 5 mg tablet Take 5 mg by mouth once daily. 0 10/24/2018 Active Comment on above: Take 5 mg by mouth o nce daily. atorvastatin 80 mg oral tablet (9 sources) HMG-CoA Reductase Inhibitor Start: 08-22-2022 End: 06-26-2023 take 1 tablet by mouth once daily Atorvastatin Calcium 80 MG Oral Tablet TAKE ONE TABLET BY MOUTH ONCE A DAY Quantity: 30 Refills: 11 Ordered: 02-Oct-2022 Ben Zamora DO Start : 01-Oct-2022 Active take 1 tablet by mouth once edelmira y atorvastatin (Lipitor) 40 mg tablet Take 1 tablet (40 mg) by mouth once daily. Active cholecalciferol 0.125 mg oral capsule (6 sources) Vitamin D Vitamin D 125 MC G (5000 UT) CAPS TAKE 1 CAPSULE Daily Quantity: 0 Refills: 0 Ordered: 24-Nov-2020 DO Active diclofenac sodium 75 mg delayed release oral tablet (20 sources) Nonsteroidal Anti-inflammatory Drug Start: 09-11-19 17 take 1 tablet by mouth twice daily diclofenac, EC, (VOLTAREN) 75 mg EC tablet Take 75 mg by mouth twice daily. 0 10/24/2018 Active End: 01-09-2023 take 2 tablets by mouth once daily diclofenac (Voltaren) 75 mg EC tablet Take 2 tablets (150 mg) by mouth once daily. 0 01/09/2023 Discontinued (Therapy completed) take 1 tablet by rk twice daily Diclofenac Sodium 75MG DR TAKE ONE TABLET BY MOUTH TWICE DAILY for 30 Not-Taking Comment on above: Take 75 mg by mouth twice daily. lisinopril 2.5 mg oral tablet (12 sources) Angiotensin Converting Enzyme Inhibitor Start: 08-22-2022 take 1 tablet by mouth once daily lisinopril 2.5 mg tablet Take 2.5 mg by mouth once daily. 0 08/22/2022 Active End: 06-26-2023 take 1 tablet by mouth once daily lisinopril 5 mg tablet Take 1 tablet (5 mg) by mouth once daily. 06/26/2023 Discontinued (Dose adjustment) take 0.5 tablet by m out once daily Lisinopril 5 MG Oral Tablet TAKE 1/2 [...] 3:22pm Start: 10-21-2020 take 1 tablet by [facility] once daily metoprolol 25 mg ER Tab 25 mg = 1 tab(s), Oral, Daily, Refills(s) 0 Start Date: 10/21/20 Status: Ordered Multi Vitamin Oral Tablet (6 sources) take 1 tablet by mouth once daily Multi Vitamin Oral Tablet TAKE 1 TABLET DAILY. Quantity: 0 Refills: 0 Ordered: 24-Nov-2020 DO Active nitroglycerin 0.4 mg sublingual tablet (11 sources) Nitrate Vasodilator Start: 08-23-19 23 Nitroglycerin 0.4 MG Sublingual Tablet Sublingual PLACE 1 TABLET UNDER THE TONGUE EVERY 5 MINUTES FOR UP TO 3 DOSES NEEDED FOR CHEST PAIN.CALL 911 IF PAIN PERSISTS. Quantity: 1 Refills: 3 Ordered: 14-Sep-2022 Ashutosh Ling MD Start : 14-Sep-2022 Active Nitroglycerin 0. 4 MG as directed [...] Status: Ordered take 1 tablet by rk th once daily Rosuvastatin Calcium 10 MG Oral Tablet TAKE 1 TABLET DAILY. Quantity: 90 Refills: 3 Ordered: 01-Jun-2022 Ashutosh Ling MD Active ticagrelor 90 mg oral tablet (11 sources) Start: 08-22-2022 End: 06-26-2023 take 1 tablet by mouth twice daily [...] Translations: [Calculus of kidney] Onset: 10-26-2021 Episodic Conditions associated with dizziness or vertigo (7 sources) Dizziness; Translations: [Dizziness and giddiness] Episodic Conduction disorders (6 sources) Heart block ; Translations: [Conduction disorder, unspecified] Onset: 08-20-2022 08-20-2022 Chronic Coronary atherosclerosis and other heart disease (13 sources) Coronary arteriosclerosis; Translations: [Atherosclerotic heart disease of ewiiaapaayp coronary artery without angina pectoris] Onset: 08-27-2022 08-28-2022 Chronic Diabetes mellitus without complication (5 sources) Diabetes mellitus; Translations: [Type 2 diabetes mellitus without complication] Onset: 08-27-2022 10-24-2018 Chronic Diseases of white blood cells (2 sources) Leukocytosis; Translations: [Elevated white blood cell count, unspecified] Onset: 08-27-2022 08-27-2022 Chronic Disorders of lipid metabolism (17 sources) Hyperlipidemia; Translations: [Other and unspecified hyperlipidemia] [...] Episodic Other nutritional; endocrine; and metabolic disorders (15 sources) Overweight in adulthood with body mass index of 25 or more but less than 30; Translations: [Overweight] Onset: 01-09-2023 01-09-2023 Episodic Residual codes; unclassified (2 sources) Never smoked tobacco; Translations: [Other specified health status] Onset: 06-26-2023 06-26-2023 Episodic Residual codes; unclassified (2 sources) Other specified health status; Translations: [Other specified health status] Onset: 06-26-2023 Episodic Screening and history of mental health [...] Classification Problem Date Documented Da te Episodic/Chronic Coagulation and hemorrhagic disorders (3 sources) Easy bruising; Translations: [Spontaneous ecchymoses] Onset: 01-09-2023 01-09-2023 Episodic Coronary atherosclerosis and other heart disease (11 sources) Patient post percutaneous transluminal coronary angioplasty; Translations: [Percutaneous transluminal coronary angioplasty status] Onset: 01-08-2023 01-09-2023 Episodic Other nutritional; endocrine; and metabolic disorders (2 sources) Body mass index (BMI) 26.0-26.9, adult; Translations: [Body mass index (BMI) 26.0-26.9, adult] Onset: 01-09-2023 Episodic Other screening for suspected conditions (not mental disorders or infectious disease) (20 sources) Cardiovascular stress test abnormal; Translations: [Other nonspecific abnormal results of function study of cardiovascular system] Onset: 01-08-2023 01-09-2023 Episodic Unclassified (2 sources) Onset: 01-09-2023 01-09-2023 Results Test Name Value Interpretation Reference Range Facility Ambulatory Visit Summaryon 1 Ambulatory Visit Summary OLAF BRIONES :1945 Visit Date:11/26/2022 Ambulatory Visit Instructions Your Diagnosis BPH with urinary obstruction Kidney stone Asymptomatic microscopic hematuria Tests Performed Urnls Dip Stick Auto w/o Microscopy POC 56117 XR Abdomen 1 View -- Results Pending -- Please visit your patient portal for your results or contact your primary care physician. Your Care Team Attending Physician - CACHORRO HAHN, Shanna Sánchez Primary Care Physician - SUDHIR HAHN, DAV [...] Follow-Up Appointments Saturday 8:45 AM EDT With: Shanna IVORY MD Where: [facility] [place] [facility] Pathology Noteon 11-26-2022 Pathology Note [id number]#1.00TIFF [facility] Patient Educationon 11-27-19 Patient Education Nephrology [...] ? 8 oz (237 mL) of milk, tpoamsm-nmeevlmfyxyj-lslxp milk, and calcium-fortifiedfruit juice. Calcium-fortified means that [...] Spinach (cooked), rhubarb, beets, sweet potatoes, and German chard. ? Peanuts. ? Potato chips, bhutanese fries, and baked potatoes with skin on. ? Nuts and nut products. ? Chocolate. ? If you regularly take a diuretic medicine, make sure to eat at least 1 or 2 servings of fruits or vegetables that are high in potassium each day. These include: ? Avocado. ? Banana. ? Coryell, prune, carrot, or tomato juice. ? Baked [...] fish oil, or vitamin B6. ? Take qeug-ykc-zcncuye and prescription medicines only as told by your health care provider. These include supplements. What foods should I limit? Limit your in (more content not included)... [facility] [id number]#1.00TIFF [facility] Urology Office/Clinic Noteon 11-26-2022 Urology Office/Clinic Note Chief Complaint 1yr KUB HPI Staff Pt is here today for 1yr KUB due to BPH, Kidney Stone & Microscopic Hematuria. *Allopurinol 300mg qd therapy. At that time PRW discussed DC'ing PSA checks due to pt's advancing age. Since then pt has gone [place] [facility] [place] CC: Lower Pelvic Pain & Blood clots in urine PVR at that time 500ml Catheter Placed C&S 600 cfu/ml Staphylococcus species coagulase negative Sandy not indicative of a Cath specimen CTU 08/26/22 Dr Koroma did see pt, due to recent cardiac cath & heart attack, pt was transferred to [facility]. There pt underwent Cysto/Clot Evacuation/Litholapaxy & [...] then pt has gone [place] [facility] [place] CC: Lower Pelvic Pain & Blood clots in urine PVR at that time 500ml Catheter Placed C&S 600 cfu/ml Staphylococcus species coagulase negative Sandy not indicative of a Cath specimen CTU 08/26/22 Dr Koroma did see pt, due to recent cardiac cath & heart attack, pt was transferred to [facility]. There pt underwent Cysto/Clot Evacuation/Litholapaxy & [...] stones. Stone Analysis done 08/28/22 - CaOx Webster 50%, CaOx Dihy 40%, and minor components [...] year [facility] [address], [place] [address]- Additional Instructions: w/KUB Patient Education Dietary Guidelines [...] trigone, bladder n (more content not included)... [facility] Comment on above: Result Comment: Elec tronically Signed By: CACHORRO HAHN, Shanna Spicer.br\Date and Time Signed: 11/26/22 14:10 EDT\.br\Electronically Co-Signed By: Sheila Tripathi.br\Date and Time Co-Signed: 11/26/22 14:08 EDT Physician Orderon 11-20-2022 Physician Order [id number]#1.00CD:127 [facility] Auth for Release of Medical Recordson 09-27-2022 Auth for Release of Medical Records [id number]#1.00CD:127 [facility] Consultation Noteon 09-20-19 Consultation Note [id number]#1.00CD:127 [facility] Consultation Note [id number]#1.00CD:127 [facility] Consultation Note [id number]#1.00CD:127 [facility] Consultation Note [id number]#1.00CD:127 [facility] Lab Reportson 09-19-2022 Lab Reports [id number]#1.00CD:127 [facility] Lab Reports [id number]#1.00CD:127 [facility] Lab Reports [id number]#1.00CD:127 [facility] Lab Reports [id number]#1.00CD:127 [facility] Operative Reporton Operative Report [id number]:127 Normal [facility] Operative Report [id number]#1.00CD:127 [facility] CNPNon 09-06-2022 CNPN Telephone (UROLMN) -- OLAF BRIONES ([id number]) 1945 M Date Time Provider Department 09/06/22 JUSTINE WILSON During your visit today, we recorded the following information about you: Justine Wilson RN 09/06/2022 10:31 AM Signed ----- Message from Jocelin Gr sent at 09/06/2022 8:23 AM EDT ----- Regarding: medciation script needed Contact: Pt is calling in to see if the flomax can be called in. The pharmacy is not at [facility]. I will need to call them when [...] Rash Date Reviewed: 08/31/2022 Reviewed by: Tung RojoBRICE - Fully Assessed Reason for Visit: Patient [...] Hematuria [R31.9] 08/27/2022 Coronary artery disease involving ewiiaapaayp hinton*08/27/2022 Adverse reaction to antiplatelet agent [T45.7X5*08/27/2022 Myocardial infarction (HCC) [I21.9] 08/27/2022 Essential (primary) hypertension [I10] 08/27/2022 Type 2 diabetes mellitus without complication, *08/27/2022 Leukocytosis [D72.829] 08/27/2022 Malnutrition of mild degree (HCC) [E44.1] 08/29/2022 Encounter Status:Closed by JUSTINE WILSON RN on 09/06/22 Normal [facility] Ambulatory Visit Summaryon 0 09-05-2022 Ambulatory [...] HAHN, Shanna Sánchez Where: [facility] Office Visit (Cardiology)on 09-05-2022 Follow-up visit [...] Status: Hold For - Scheduling Requested for: [id number] Agreement : I agree to have my patient participate in the phase III outpatient cardiac rehabilitation program after completion of the phase II program. Consent : I consent to have my patient participate in the cardiac rehabilitation program. I will continue regular medical care of my patient throughout his/her participation in the program. Individualized Treatment Plan and Exercise Prescription : Request the Process Control Board Operator to share responsibility for developing an ITP [...] in adult Healthy Weight Tips; Status:Complete; Done: [id number] Some eating tips that can help you lose weight.; Status:Complete; Done: [id number] SocHx: Former smoker Tobacco Use Screening; Status:Complete; Done: [id number] Patient Instructions Please bring all medicines, vitamins, and herbal supplements with you when you come to the office. Prescriptions will not be filled unless you are compliant with your follow up appointments or have a follow up appointment scheduled as per instruction of your physician. Refills should be requested at the time of your visit. Follow up in 4 months [facility] cardiac rehab -one month History of Present [...] he developed hematuria ultimately went to the [facility] where he underwent TURP and [...] 1 TABLET (more content not included)... Normal [facility] Tobacco Screening.on 023 Adult depression screening assessment No [facility] V I O DO Work Phone: Fall risk assessment a) No falls within the last year [facility] I O DO Work Phone: Tobacco use status [facility] b) No [facility] V I O DO Work Phone: CNPNon 09-04-2022 CNPN Telephone (PODCCP) -- OLAF BRIONES ([id number]) 1945 M Date Time Provider Department 09/04/22 DEBORAH IBARRA PODCCP During your visit today, we recorded the following information about you: Deborah Ibarra RN 09/04/2022 12:52 PM Signed PATIENT INFORMATION Record ID: [id number] Patient Name: Olaf Briones [facility]: [facility] [place]: [facility] [place] Attending: David Andrews Center: Urology INSTRUCTIONS SN to remind patient of appointment date, time, location All Clear All Clear SURVEY INFORMATION Medical/Nurse Spreading Machine Operator: Deboarh Ibarra 1. Your discharge instructions are important [...] Rash Date Reviewed: 08/31/2022 Reviewed by: Tung Rojo, RN - Fully Assessed Reason for Visit: Follow Up Phone Call [[id number]] Cmt: All Clear Prescriptions as of 09/04/2022 - trospium (SANCTURA) 20 mg tablet Take 1 tablet by mouth twice daily for hernandez discomfort. Stop taking 48 hours before hrenandez removal. - allopurinol (ZYLOPRIM) 300 mg tablet [...] Hematuria [R31.9] 08/27/2022 Coronary artery disease involving ewiiaapaayp hinton*08/27/2022 Adverse reaction to antiplatelet agent [T45.7X5*08/27/2022 Myocardial infarction (HCC) [I21.9] 08/27/2022 Essential (primary) hypertension [I10] 08/27/2022 Type 2 diabetes mellitus without complication, *08/27/2022 Leukocytosis [D72.829] 08/27/2022 Malnutrition of mild degree (HCC) [E44.1] 08/29/2022 Encounter Status:Closed by DEBORAH IBARRA on 09/04/22 [facility] CBC panel Auto (Bld)on 08-31 Erythrocyte distribution width (RBC) [Ratio] 12.8 % Normal 11.5-15.0 [facility] Comment on above: Order Comment: Speci men Type: BLOOD SPECIMENOrdering Facility: [facility] Address: [address] [place] [address] Performed By: #### 5 8410-2 ####[facility] LABIA [id number] [place] [address] [place] Hematocrit (Bld) [Volume fraction] 30.7 % Low 39.0-51.0 [facility] Comment on above: Order Comment: Portia tay Type: BLOOD SPECIMENOrdering Facility: [facility] Address: [address] [place] [address] Performed By: #### 5 8410-2 ####[facility] LABIA [id number] [place] [address] [place] Hemoglobin (Bld) [Mass/Vol] 10.4 g/dL Low 13.0-17.0 [facility] Comment on above: Order Comment: Janiei men Type: BLOOD SPECIMENOrdering Facility: [facility] Address: [address] [place] [address] Performed By: #### 5 8410-2 ####[facility] LABIA [id number] MCH (RBC) [Entitic mass] 31.4 pg Normal 26.0-34.0 [facility] Comment on above: Order Comment: Speci men Type: BLOOD SPECIMENOrdering Facility: [facility] Address: [address] [place] [address] Performed By: #### 5 8410-2 ####[facility] LABCLIA [id number] [address] [facility] MCHC (RBC) [Mass/Vol] 33.9 g/dL Normal 30.5-36.0 [facility] Comment on above: Order Comment: Speci men Type: BLOOD SPECIMENOrdering Facility: [facility] Address: [address] [place] [address] Performed By: #### 5 8410-2 ####[facility] LABCLIA [id number] [address] OF [facility] MCV (RBC) [Entitic vol] 92.7 fL Normal 80.0-100.0 C [facility] Comment on above: Order Comment: Speci men Type: BLOOD SPECIMENOrdering Facility: [facility] Address: [address] [place] [address] Performed By: #### 5 8410-2 ####[facility] LABCLIA [id number] [place] [address] [place] Nucleated RBC (Bld) [#/Vol] 10*3/uL Normal <0.01 [facility] Comment on above: Order Comment: Speci men Type: BLOOD SPECIMENOrdering Facility: [facility] Address: [address] [place], [place] [address] Performed By: #### 5 8410-2 ####[facility] LABCLIA [id number] [address] [place] Platelet mean volume (Bld) [Entitic vol] 11.5 fL Normal 9.0-12.7 [facility] Comment on above: Order Comment: Speci men Type: BLOOD SPECIMENOrdering Facility: [facility] Address: [address] [place] [address] Performed By: #### 5 8410-2 ####[facility] LABCLIA [id number] [place] [address] [place] Platelets (Bld) [#/Vol] 194 10*3/uL Normal 150-400 [facility] Comment on above: Order Comment: Speci men Type: BLOOD SPECIMENOrdering Facility: [facility] Address: [address] [place] [address] Performed By: #### 5 8410-2 ####[facility] LABIA [id number] [place] [address] [place] RBC (Bld) [#/Vol] 3.31 10*6/uL Low 4.20-6.00 [facility] Comment on above: Order Comment: Speci men Type: BLOOD SPECIMENOrdering Facility: [facility] Address: [address] [place] [address] Performed By: #### 5 8410-2 ####[facility] LABIA [id number] [place] [address] [place] WBC (Bld) [#/Vol] 10.56 10*3/uL Normal 3.70-11.00 [facility] Comment on above: Order Comment: Speci men Type: BLOOD SPECIMENOrdering Facility: [facility] Address: [address] [place] [address] Performed By: #### 5 8410-2 ####[facility] LABIA [id number] [address] [place] CNDSon 08-31-2022 CNDS HNO ID: [id number] Author: David Andrews MD Service: Urology Author [...] stable in SICU, ready to transfer to [facility]. Hernandez light pink on traction. Discontinued on Zosyn given negative blood and urine cultures. - DOA#3/POD#2: Hemoglobin continues to be stable. Urine light pink off traction. Transferred to [facility] - DOA#4/POD#3: Will discharge today with hernandez [...] to [facility] [address] [place] [address] Hours: Saturday-Saturday 7am-8pm, Saturday, Saturday and Holidays [...] DATE: August 31, 2022 TIME: 8:41 AM [facility] STAFF PHYSICIAN NOTE OF PERSONAL [...] care coordinatio (more content not included)... Normal [facility] metabolic 2000 panelon 08-31-2022 Albumin [Mass/Vol] 3.8 g/dL Low 3.9-4.9 [facility] Comment on above: Order Comment: Speci men Type: BLOOD SPECIMENOrdering Facility: [facility] Address: [address] [place] [address] Performed By: #### 2 4323-8, 06687-2, 2776-1 ####[facility] LABCLIA [id number] [place] [address] [place] ALP [Catalytic activity/Vol] 116 U/L High 38-113 [facility] Comment on above: Order Comment: Speci men Type: BLOOD SPECIMENOrdering Facility: [facility] Address: [address] [place] [address] Performed By: #### 2 4323-8, 84194-3, 2776- ####[facility] LABCLIA [id number] [place] [address] [place] ALT [Catalytic activity/Vol] 23 U/L Normal 10-54 [facility] Comment on above: Order Comment: Speci men Type: BLOOD SPECIMENOrdering Facility: [facility] Address: [address] [place] [address] Performed By: #### 2 4323-8, 83590-4, 2776- ####[facility] LABCLIA [id number] [place] [address] [place] Anion gap [Moles/Vol] 9 mmol/L Normal 9-18 [facility] Comment on above: Order Comment: Speci men Type: BLOOD SPECIMENOrdering Facility: [facility] Address: [address] [place] [address] Performed By: #### 2 4323-8, 49060-9, 2776-1 ####[facility] LABCLIA [id number] [place] [id number] [place] AST [Catalytic activity/Vol] 19 U/L Normal 14-40 [facility] Comment on above: Order Comment: Speci men Type: BLOOD SPECIMENOrdering Facility: [facility] Address: [address] [place] [address] Performed By: #### 2 4323-8, , 2776-02 ####[facility] LABCLIA [id number] [place] [address] [place] Bilirubin [Mass/Vol] 0.3 mg/dL Normal 0.2-1.3 [facility] Comment on above: Order Comment: Speci men Type: BLOOD SPECIMENOrdering Facility: [facility] Address: [address] [place] [address] Performed By: #### 2 4323-8, , 2776-02 ####[facility] LABCLIA [id number] [place] [address] [place] Calcium [Mass/Vol] 9.1 mg/dL Normal 8.5-10.2 [facility] Comment on above: Order Comment: Speci men Type: BLOOD SPECIMENOrdering Facility: [facility] Address: [address] [place] [address] Performed By: #### 2 4323-8, , 2776-02 ####[facility] LABCLIA [id number] [place] [address] [place] Chloride [Moles/Vol] 105 mmol/L Normal 97-105 [facility] Comment on above: Order Comment: Speci men Type: BLOOD SPECIMENOrdering Facility: [facility] Address: [address] [place], [place] [address] Performed By: #### 2 4323-8, , 2776-02 ####[facility] LABCLIA [id number] [place] [address] [place] CO2 [Moles/Vol] 25 mmol/L Normal 22-30 [facility] Comment on above: Order Comment: Speci men Type: BLOOD SPECIMENOrdering Facility: [facility] Address: [address] [place] [id number] Performed By: #### 2 4323-8, , 2776-02 ####[facility] LABCLIA [id number] [place] [address] [place] Creatinine [Mass/Vol] 0.88 mg/dL Normal 0.73-1.22 [facility] Comment on above: Order Comment: Speci men Type: BLOOD SPECIMENOrdering Facility: [facility] Address: [address] [place] [address] Performed By: #### 2 4323-8, , 2776-02 ####[facility] LABCLIA [id number] [place] [address] [place] ESTIMATED GLOMERULAR FILTRATION RATE 89 mL/min/1.73m??? Normal >=60 [facility] Comment on above: Order Comment: Speci men Type: BLOOD SPECIMENOrdering Facility: [facility] Address: [address] [place] [address] Result Comment: Mariaelena mated Glomerular Filtration Rate [...] Performed By: #### 2 4323-8, , 2776-02 ####[facility] LABCLIA [id number] [place] [address] [place] Glucose [Mass/Vol] 114 mg/dL High 74-99 [facility] Comment on above: Order Comment: Speci men Type: BLOOD SPECIMENOrdering Facility: [facility] Address: [address] [place] [phone] Result Comment: The [place] Diabetes [employer] (ADA) provides guidance for cutoff [...] Standards of Medical Care in Diabetes 2016, [place] [employer]. Diabetes Care. 2016.39(Suppl 1). Performed By: #### 2 4323-8, , 2776-02 ####[facility] LABIA [id number] [place] [address] [place] Potassium [Moles/Vol] 4.2 mmol/L Normal 3.7-5.1 [facility] Comment on above: Order Comment: Speci men Type: BLOOD SPECIMENOrdering Facility: [facility] Address: [address] [place] [phone] Performed By: #### 2 4323-8, , 2776-02 ####[facility] LABIA [id number] [place] [address] [place] Protein [Mass/Vol] 6.1 g/dL Low 6.3-8.0 [facility] Comment on above: Order Comment: Speci men Type: BLOOD SPECIMENOrdering Facility: [facility] Address: [address] [place] [address] Performed By: #### 2 4323-8, , 2776-02 ####[facility] LABIA [id number] [place] [address] [place] Sodium [Moles/Vol] 139 mmol/L Normal 136-144 [facility] Comment on above: Order Comment: Speci men Type: BLOOD SPECIMENOrdering Facility: [facility] Address: [address] [place] [address] Performed By: #### 2 4323-8, 57029-4, 2776- ####[facility] LABIA [id number] [place] [id number] [place] Urea nitrogen [Mass/Vol] 21 mg/dL Normal 9-24 [facility] Comment on above: Order Comment: Speci jasvir Type: BLOOD SPECIMENOrdering Facility: [facility] Address: [address] [place], [place] [address] Performed By: #### 2 4323-8, , 2776- ####[facility] [id number] [place] [id number] [place] Magnesium SerPl-mCncon 08-31 Magnesium [Mass/Vol] 2.2 mg/dL Normal 1.7-2.3 [facility] Comment on above: Order Comment: Speci jasvir Type: BLOOD SPECIMENOrdering Facility: [facility] Address: [address] [place], [place] [address] Performed By: #### 2 4323-8, , 2776-02 ####[facility] [id number] [place] [address] [place] PT panel Coag (PPP)on 2022 INR Coag (PPP) [Relative time] 1.0 {INR} Normal 0.9-1.3 [facility] Comment on above: Order Comment: Portia tay Type: BLOOD SPECIMENOrdering Facility: [facility] Address: [address] [place], [place] [address] Result Comment: Mago min K Antagonist (VKA) Therapeutic Range: INR 2 to 3 (Target INR of 2.5) Note: For patients treated with VKA drugs, such as warfarin, the [place] [employer] 2012 Guideline recommends [...] Chest 2012, 141:7S-47S Daniel RA, et al. [facility] 2017, 70: 252-289 Performed By: #### 3 4528-0, 33339-9 ####[facility]BR[facility] [id number] [address] OF [facility] PT Coag (PPP) [Time] 10.4 s Normal 9.7-13.0 [facility] Comment on above: Order Comment: Specherbie men Type: BLOOD SPECIMENOrdering Facility: [facility] Address: [address] [place] [address] Performed By: #### 3 4528-0, 74644-3 ####[facility] [id number] [address] [place] Phosphate SerPl-mCncon 08-31 Phosphate [Mass/Vol] 3.6 mg/dL Normal 2.7-4.8 [facility] Comment on above: Order Comment: Portia tay Type: BLOOD SPECIMENOrdering Facility: [facility] Address: [address] [place] [address] Performed By: #### 2 4323-8, 32661-8, 2777-1 ####[facility] [id number] [place] [id number] [facility] OF [place] THERAPY NTon 08-31-2022 THERAPY NT HNO ID: [id number] Author: Jenna Duggan, PT Service: Physical Therapy Author Type: Physical Therapist Type: Therapy (PT/OT/Speech/Resp) Filed: 08/31/2022 10:55 AM Note Text: Physical Therapy Treatment SERVICE DATE: 08/31/2022 SERVICE TIME: 0940 to 1003 ROOM: [place] [address] Recommended Discharge Disposition: Home Anticipated Discharge Needs: [...] recent STEMI (08/20/2022), transferred from [facility] for gross hematuria. Currently with 18Fr 3-way catheter on CBI. 08/28/22: s/p cystoscopy, clot evacuation, cystolitholapaxy, TURP. Admitted to SICU postoperatively due to pressor requirements and risk of hyponatremia due to length of TURP. 22Fr [address] hernandez placed introp, on traction and CBI. Reason for Hospital Admission: Pt 77y/o male transferred from [facility] for gross hematuria secondary to recent STEMI [...] General Deviations/Observations: Diana decreased, Flexed trunk posture -[facility]: 8: Walk 250 feet or more Learning/Educational [...] Diagnosis: Reduced mobility-other Interventions Provided: Gait Training (39913) Gait Training (55261) Treatment Minutes: 23 $ Gait Training (44155) Billed Units: 2 units Training AND Education Provided in: Benefits of In-Hospital Mobility, Bed Mobility, Energy Conservation, Equipment, Exercise Program, Expected Functional Level, Gait Pattern, Reduction of Deviations, Patient Exercise/Therapy Program Support Needs, Positioning, Precautions/Restrictions, Role of Physical Therapy, Standing Balance, (more content not included)... Normal [facility] aPTT PPPon 08-31-2022 aPTT Coag (PPP) [Time] 25.2 s Normal 23.0-32.[address] [facility] Comment on above: Order Comment: Speci men Type: BLOOD SPECIMENOrdering Facility: [facility] Address: [address] [place] [address] Performed By: #### 3 4528-0, 02958-6 ####[facility] LABIA [id number] [address] [place] CBC panel Auto (Bld)on 08-30 Erythrocyte distribution width (RBC) [Ratio] 12.7 % Normal 11.5-15.0 [facility] Comment on above: Order Comment: Speci men Type: BLOOD SPECIMENOrdering Facility: [facility] Address: [address] [place] [address] Performed By: #### 5 8410-2 ####[facility] LABIA [id number] [address] [place] Hematocrit (Bld) [Volume fraction] 30.5 % Low 39.0-51.0 [facility] Comment on above: Order Comment: Speci men Type: BLOOD SPECIMENOrdering Facility: [facility] Address: [address] [place] [address] Performed By: #### 5 8410-2 ####[facility] LABIA [id number] [address] [place] Hemoglobin (Bld) [Mass/Vol] 10.4 g/dL Low 13.0-17.0 [facility] Comment on above: Order Comment: Speci men Type: BLOOD SPECIMENOrdering Facility: [facility] Address: [address] [place] [address] Performed By: #### 5 8410-2 ####[facility] LABIA [id number] [address] [place] MCH (RBC) [Entitic mass] 31.7 pg Normal 26.0-34.0 [facility] Comment on above: Order Comment: Speci men Type: BLOOD SPECIMENOrdering Facility: [facility] Address: [address] [place] [address] Performed By: #### 5 8410-2 ####[facility] LABIA [id number] [address] [place] MCHC (RBC) [Mass/Vol] 34.1 g/dL Normal 30.5-36.0 [facility] Comment on above: Order Comment: Speci men Type: BLOOD SPECIMENOrdering Facility: [facility] Address: [address] [place] [phone] Performed By: #### 5 8410-2 ####[facility] LABIA [id number] [place] [address] [place] MCV (RBC) [Entitic vol] 93.0 fL Normal 80.0-100.0 [facility] Comment on above: Order Comment: Speci men Type: BLOOD SPECIMENOrdering Facility: [facility] Address: [address] [place] [phone] Performed By: #### 5 8410-2 ####[facility] [id number] [place] [address] [place] Nucleated RBC (Bld) [#/Vol] 10*3/uL Normal <0.01 [facility] Comment on above: Order Comment: Speci men Type: BLOOD SPECIMENOrdering Facility: [facility] Address: [address] [place] [address] Performed By: #### 5 8410-2 ####[facility] LABIA [id number] [address] [place] Platelet mean volume (Bld) [Entitic vol] 11.6 fL Normal 9.0-12.7 [facility] Comment on above: Order Comment: Speci men Type: BLOOD SPECIMENOrdering Facility: [facility] Address: [address] [place] [address] Performed By: #### 5 8410-2 ####[facility]BRATT[facility] [id number] [place] [id number] [place] Platelets (Bld) [#/Vol] 192 10*3/uL Normal 150-400 [facility] Comment on above: Order Comment: Speci men Type: BLOOD SPECIMENOrdering Facility: [facility] Address: [address] [place] [address] Performed By: #### 5 8410-2 ####[facility] LABCLIA [id number] [place] [address] [place] RBC (Bld) [#/Vol] 3.28 10*6/uL Low 4.20-6.00 [facility] Comment on above: Order Comment: Speci men Type: BLOOD SPECIMENOrdering Facility: [facility] Address: [address] [place] [address] Performed By: #### 5 8410-2 ####[facility] LABCLIA [id number] [place] [address] [place] WBC (Bld) [#/Vol] 15.06 10*3/uL High 3.70-11.00 [facility] Comment on above: Order Comment: Speci men Type: BLOOD SPECIMENOrdering Facility: [facility] Address: [address] [place] [address] Performed By: #### 5 8410-2 ####[facility] LABCLIA [id number] [place] [address] [place] Comprehensive metabolic 2000 panelon 08-30-2022 Albumin [Mass/Vol] 3.4 g/dL Low 3.9-4.9 [facility] Comment on above: Order Comment: Speci men Type: BLOOD SPECIMENOrdering Facility: [facility] Address: [address] [place] [address] Performed By: #### 2 4323-8, 57337-5, 2777-1 ####[facility] LABCLIA [id number] [place] [address] [place] ALP [Catalytic activity/Vol] 105 U/L Normal 38-113 [facility] Comment on above: Order Comment: Speci men Type: BLOOD SPECIMENOrdering Facility: [facility] Address: [address] [place], [place] [address] Performed By: #### 2 4323-8, , 2776-02 ####[facility] LABCLIA [id number] [place] [address] [place] ALT [Catalytic activity/Vol] 18 U/L Normal 10-54 [facility] Comment on above: Order Comment: Speci men Type: BLOOD SPECIMENOrdering Facility: [facility] Address: [address] [place] [address] Performed By: #### 2 4323-8, , 2776-02 ####[facility] LABCLIA [id number] [place] [address] [place] Anion gap [Moles/Vol] 11 mmol/L Normal 9-18 [facility] Comment on above: Order Comment: Speci men Type: BLOOD SPECIMENOrdering Facility: [facility] Address: [address] [place], [place] [address] Performed By: #### 2 4323-8, , 2776-02 ####[facility] LABCLIA [id number] [place] [address] [place] AST [Catalytic activity/Vol] 16 U/L Normal 14-40 [facility] Comment on above: Order Comment: Speci men Type: BLOOD SPECIMENOrdering Facility: [facility] Address: [address] [place], [place] [address] Performed By: #### 2 4323-8, , 2776-02 ####[facility] LABCLIA [id number] [place] [address] [place] Bilirubin [Mass/Vol] 0.3 mg/dL Normal 0.2-1.3 [facility] Comment on above: Order Comment: Speci men Type: BLOOD SPECIMENOrdering Facility: [facility] Address: [address] Performed By: #### 2 4323-8, , 2776-02 ####[facility] LABCLIA [id number] [place] [address] [place] Calcium [Mass/Vol] 8.9 mg/dL Normal 8.5-10.2 [facility] Comment on above: Order Comment: Speci men Type: BLOOD SPECIMENOrdering Facility: [facility] Address: [address] Performed By: #### 2 4323-8, , 2776-02 ####[facility] LABCLIA [id number] [place] [address] [place] Chloride [Moles/Vol] 103 mmol/L Normal 97-105 [facility] Comment on above: Order Comment: Speci men Type: BLOOD SPECIMENOrdering Facility: [facility] Address: [address] Performed By: #### 2 4323-8, , 2776-02 ####[facility] LABCLIA [id number] [place] [address] [place] CO2 [Moles/Vol] 24 mmol/L Normal 22-30 [facility] Comment on above: Order Comment: Speci men Type: BLOOD SPECIMENOrdering Facility: [facility] Address: [address] [place] [phone] Performed By: #### 2 4323-8, , 2776-02 ####[facility] LABCLIA [id number] [address] [address] [place] Creatinine [Mass/Vol] 0.77 mg/dL Normal 0.73-1.22 [facility] Comment on above: Order Comment: Speci men Type: BLOOD SPECIMENOrdering Facility: [facility] Address: [address] [phone] Performed By: #### 2 4323-8, 01431-6, 2777-1 ####[facility] LABCLIA [id number] [place] [id number] [place] ESTIMATED GLOMERULAR FILTRATION RATE 92 mL/min/1.73m??? Normal >=60 [facility] Comment on above: Order Comment: Speci men Type: BLOOD SPECIMENOrdering Facility: [facility] Address: [address] [phone] Result Comment: Mariaelena mated Glomerular Filtration Rate [...] actual GFR. Performed By: #### 2 4323-8, 42629-7, 2777-1 ####[facility] LABIA [id number] [place] [id number] [place] Glucose [Mass/Vol] 124 mg/dL High 74-99 [facility] Comment on above: Order Comment: Janieherbie jasvir Type: BLOOD SPECIMENOrdering Facility: [facility] Address: [address] [phone] Result Comment: The [place] [employer] (ADA) provides guidance for cutoff [...] Standards of Medical Care in Diabetes 2016, [place] [employer]. Diabetes Care. 2016.39(Suppl 1). Performed By: #### 2 4323-8, 57459-5, 2776-02 ####[facility] LABCLIA [id number] [address] [address] [place] Potassium [Moles/Vol] 3.9 mmol/L Normal 3.7-5.1 [facility] Comment on above: Order Comment: Speci men Type: BLOOD SPECIMENOrdering Facility: [facility] Address: [address] [place] [place] [address] Performed By: #### 2 4323-8, , 2776-02 ####[facility] LABIA [id number] [place] [address] [place] Protein [Mass/Vol] 6.2 g/dL Low 6.3-8.0 [facility] Comment on above: Order Comment: Speci men Type: BLOOD SPECIMENOrdering Facility: [facility] Address: [address] [place] [address] Performed By: #### 2 4323-8, , 2776-02 ####[facility] LABIA [id number] [place] [address] [place] Sodium [Moles/Vol] 138 mmol/L Normal 136-144 [facility] Comment on above: Order Comment: Speci men Type: BLOOD SPECIMENOrdering Facility: [facility] Address: [address] Performed By: #### 2 4323-8, , 2776-02 ####[facility] LABIA [id number] [place] [id number] [place] Urea nitrogen [Mass/Vol] 22 mg/dL Normal 9-24 [facility] Comment on above: Order Comment: Speci men Type: BLOOD SPECIMENOrdering Facility: [facility] Address: [address] Performed By: #### 2 4323-8, 92596-3, 2777-1 ####[facility] LABCLIA [id number] [place] [id number] [facility] Magnesium SerPl-mCncon 08-30 Magnesium [Mass/Vol] 2.2 mg/dL Normal 1.7-2.3 [facility] Comment on above: Order Comment: Speci men Type: BLOOD SPECIMENOrdering Facility: [facility] Address: [address] [place] [address] Performed By: #### 2 4323-8, 06769-6, 2777- ####[facility] LABIA [id number] [address] PT panel Coag (PPP)on 2022 INR Coag (PPP) [Relative time] 1.1 {INR} Normal 0.9-1.3 [facility] Comment on above: Order Comment: Speci jasvir Type: BLOOD SPECIMENOrdering Facility: [facility] Address: [address] [place] [address] Result Comment: Mago min K Antagonist (VKA) Therapeutic Range: INR 2 to 3 (Target INR of 2.5) Note: For patients treated with VKA drugs, such as warfarin, the [employer] [employer] 2012 Guideline recommends [...] BENITEZ, et al. Chest 2012, 141:7S-47S Daniel KENNEDY, et al. [facility] 2017, 70: 252-289 Performed By: #### 3 4528-0, 60028-4 ####[facility] LABIA [id number] [address] [place] PT Coag (PPP) [Time] 10.9 s Normal 9.7-13.0 [facility] Comment on above: Order Comment: Speci men Type: BLOOD SPECIMENOrdering Facility: [facility] Address: [address] [place] [address] Performed By: #### 3 4528-0, 92166-6 ####[facility] LABIA [id number] [address] Phosphate SerPl-mCncon 08-30 Phosphate [Mass/Vol] 3.2 mg/dL Normal 2.7-4.8 [facility] Comment on above: Order Comment: Speci men Type: BLOOD SPECIMENOrdering Facility: [facility] Address: [address] [place] [address] Performed By: #### 2 4323-8, 07365-3, 2777-1 ####[facility] LABIA [id number] [address] THERAPY NTon 08-30-2022 THERAPY NT HNO ID: [id number] Author: Jenna Duggan, PT Service: Physical Therapy Author Type: Physical Therapist Type: Therapy (PT/OT/Speech/Resp) Filed: 08/30/2022 3:12 PM Note Text: Physical Therapy Treatment SERVICE DATE: 08/30/2022 SERVICE TIME: 1337 to 1400 ROOM: [place] [address] Recommended Discharge Disposition: Home Anticipated Discharge Needs: [...] recent STEMI (08/20/2022), transferred from [facility] for gross hematuria. Currently with 18Fr 3-way catheter on CBI. 08/28/22: s/p cystoscopy, clot evacuation, cystolitholapaxy, TURP. Admitted to SICU postoperatively due to pressor requirements and risk of hyponatremia due to length of TURP. 22Fr [address] hernandez placed introp, on traction and CBI. Reason for Hospital Admission: Pt 77y/o male transferred from [facility] for gross hematuria secondary to recent STEMI [...] General Deviations/Observations: Diana decreased, Flexed trunk posture -[facility]: 8: Walk 250 feet or more Learning/Educational [...] Diagnosis: Reduced mobility-other Interventions Provided: Therapeutic Activity (09025), Gait Training (13585) Therapeutic Activity (11875) Treatment Minutes: 8 $ Therapeutic Activity (26145) Billed Units: 1 unit Gait Training (14917) Treatment Minutes: 15 $ Gait Training (13798) Billed Units: 1 unit Training AND Education Provided in: Benefits of In-Hospital Mobility, Bed Mobility, Energy Conservation, Equipment, Exercise Program, Expected Functional Level, Gait Pattern, Reduction of Deviations, Patient Exercise/Therapy Program Support Needs, Positioning, Precautions/Restrictions, Role of Physical Therapy, Standing Balance, Treatment Protocol, Transfers The Followin (more content not included)... Normal [facility] TYPE + SCREENon 08-30-2022 ABO O Normal [facility] Comment on above: Order Comment: Speci men Type: BLOOD SPECIMENOrdering Facility: [facility] Address: [address] [place] [address] Performed By: #### T SCR ####CC MAIN BLOOD BANKCLIA [id number] [address] STATES OF [facility] HISTORICAL AB SCR STATUS Negative Normal [facility] Comment on above: Order Comment: Speci men Type: BLOOD SPECIMENOrdering Facility: [facility] Address: [address] [place] [address] Performed By: #### T SCR ####CC MAIN BLOOD BANKCLIA [id number] [address] [place] Rh Nom (Bld) Positive Normal [facility] Comment on above: Order Comment: Speci men Type: BLOOD SPECIMENOrdering Facility: [facility] Address: [address] [address] Performed By: #### T SCR ####CC [facility] BLOOD BANKIA [id number] [address] OF [facility] TYPE AND SCREEN EXPIRATION 09/02/2022 23:59 Normal [facility] Comment on above: Order Comment: Speci men Type: BLOOD SPECIMENOrdering Facility: [facility] Address: [address] [place] [address] Performed By: #### T SCR ####CC [facility] BLOOD [facility] [id number] [address] aPTT PPPon 08-30-2022 aPTT Coag (PPP) [Time] 26.5 s Normal 23.0-32.[address] [facility] Comment on above: Order Comment: Speci men Type: BLOOD SPECIMENOrdering Facility: [facility] Address: [address] [place] [address] Performed By: #### 3 4528-0, 89266-5 ####[facility] LABCLIA [id number] [address] C Urineon 08-29-2022 Bacteria identified Cx [...] Locations R1: This test was performed at: [facility], [address] [place] [address], [address] , [place], Normal [facility] Comment on above: Performed By: #### 2 338142, [id number], 8204256, [id number], [id number] #### [facility] [address] [place] [address] CBC panel Auto (Bld)on 08-29 Erythrocyte distribution width (RBC) [Ratio] 12.5 % Normal 11.5-15.0 [facility] Comment on above: Order Comment: Speci men Type: BLOOD SPECIMENOrdering Facility: [facility] Address: [address] [place] [address] Performed By: #### 5 8410-2 ####[facility] [id number] [address] [place] Hematocrit (Bld) [Volume fraction] 30.7 % Low 39.0-51.0 [facility] Comment on above: Order Comment: Speci men Type: BLOOD SPECIMENOrdering Facility: [facility] Address: [address] [place] [address] Performed By: #### 5 8410-2 ####[facility] [id number] [address] [place] Hemoglobin (Bld) [Mass/Vol] 10.6 g/dL Low 13.0-17.0 [facility] Comment on above: Order Comment: Speci men Type: BLOOD SPECIMENOrdering Facility: [facility] Address: [address] [address] Performed By: #### 5 8410-2 ####[facility] LABIA [id number] [place] [address] [place] MCH (RBC) [Entitic mass] 32.0 pg Normal 26.0-34.0 [facility] Comment on above: Order Comment: Speci men Type: BLOOD SPECIMENOrdering Facility: [facility] Address: [address] [place] [address] Performed By: #### 5 8410-2 ####[facility] LABCLIA [id number] [address] STATES [facility] MCHC (RBC) [Mass/Vol] 34.5 g/dL Normal 30.5-36.0 [facility] Comment on above: Order Comment: Speci men Type: BLOOD SPECIMENOrdering Facility: [facility] Address: [address] Performed By: #### 5 8410-2 ####[facility] LABCLIA [id number] [address] [place] MCV (RBC) [Entitic vol] 92.7 fL Normal 80.0-100.0 [facility] Comment on above: Order Comment: Speci men Type: BLOOD SPECIMENOrdering Facility: [facility] Address: [address] Performed By: #### 5 8410-2 ####[facility] LABIA [id number] [place] [address] [place] Nucleated RBC (Bld) [#/Vol] 10*3/uL Normal <0.01 [facility] Comment on above: Order Comment: Speci men Type: BLOOD SPECIMENOrdering Facility: [facility] Address: [address] [place] [address] Performed By: #### 5 8410-2 ####[facility] LABCLIA [id number] [place] [address] [place] Platelet mean volume (Bld) [Entitic vol] 11.6 fL Normal 9.0-12.7 [facility] Comment on above: Order Comment: Speci men Type: BLOOD SPECIMENOrdering Facility: [facility] Address: [address] Performed By: #### 5 8410-2 ####[facility] LABIA [id number] [place] [address] [place] Platelets (Bld) [#/Vol] 159 10*3/uL Normal 150-400 [facility] Comment on above: Order Comment: Speci men Type: BLOOD SPECIMENOrdering Facility: [facility] Address: [address] [place] [address] Performed By: #### 5 8410-2 ####[facility] [id number] [place] [address] [place] RBC (Bld) [#/Vol] 3.31 10*6/uL Low 4.20-6.00 [facility] Comment on above: Order Comment: Speci men Type: BLOOD SPECIMENOrdering Facility: [facility] Address: [address] [place] [address] Performed By: #### 5 8410-2 ####[facility] [id number] [place] [address] [place] WBC (Bld) [#/Vol] 13.57 10*3/uL High 3.70-11.00 [facility] Comment on above: Order Comment: Speci men Type: BLOOD SPECIMENOrdering Facility: [facility] Address: [address] [place] [address] Performed By: #### 5 8410-2 ####[facility] [id number] [place] [address] [place] Erythrocyte distribution width (RBC) [Ratio] 12.5 % Normal 11.5-15.0 [facility] Comment on above: Order Comment: Speci men Type: BLOOD SPECIMENOrdering Facility: [facility] Address: [address] [place] [address] Performed By: #### 5 8410-2 ####[facility] LABBRATTLEB[facility] [id number] [place] [address] [place] Hematocrit (Bld) [Volume fraction] 25.7 % Low 39.0-51.0 [facility] Comment on above: Order Comment: Speci men Type: BLOOD SPECIMENOrdering Facility: [facility] Address: [address] [place] [address] Performed By: #### 5 8410-2 ####[facility] LABCLIA [id number] [place] [address] [place] Hemoglobin (Bld) [Mass/Vol] 9.1 g/dL Low 13.0-17.0 [facility] Comment on above: Order Comment: Speci men Type: BLOOD SPECIMENOrdering Facility: [facility] Address: [address] [place] [address] Performed By: #### 5 8410-2 ####[facility] LABCLIA [id number] [place] [address] [place] MCH (RBC) [Entitic mass] 32.4 pg Normal 26.0-34.0 [facility] Comment on above: Order Comment: Speci men Type: BLOOD SPECIMENOrdering Facility: [facility] Address: [address] [place] [address] Performed By: #### 5 8410-2 ####[facility] LABIA [id number] [place] [address] [place] MCHC (RBC) [Mass/Vol] 35.4 g/dL Normal 30.5-36.0 [facility] Comment on above: Order Comment: Speci men Type: BLOOD SPECIMENOrdering Facility: [facility] Address: [address] [place] [address] Performed By: #### 5 8410-2 ####[facility] LABIA [id number] [place] [address] [place] MCV (RBC) [Entitic vol] 91.5 fL Normal 80.0-100.0 C [facility] Comment on above: Order Comment: Speci men Type: BLOOD SPECIMENOrdering Facility: [facility] Address: [address] [address] Performed By: #### 5 8410-2 ####[facility] LABIA [id number] [place] [address] [place] Nucleated RBC (Bld) [#/Vol] 10*3/uL Normal <0.01 [facility] Comment on above: Order Comment: Speci men Type: BLOOD SPECIMENOrdering Facility: [facility] Address: [address] [place] [address] Performed By: #### 5 8410-2 ####[facility] [id number] [place] [address] [place] Platelet mean volume (Bld) [Entitic vol] 11.1 fL Normal 9.0-12.7 [facility] Comment on above: Order Comment: Speci men Type: BLOOD SPECIMENOrdering Facility: [facility] Address: [address] [place] [address] Performed By: #### 5 8410-2 ####[facility] [id number] [place] [address] [place] Platelets (Bld) [#/Vol] 138 10*3/uL Low 150-400 [facility] Comment on above: Order Comment: Speci men Type: BLOOD SPECIMENOrdering Facility: [facility] Address: [address] [place] [address] Result Comment: No c lot detected.Results checked and verified. Performed By: #### 5 8410-2 ####[facility]BRATTLEB[facility] [id number] [place] [address] [place] RBC (Bld) [#/Vol] 2.81 10*6/uL Low 4.20-6.00 [facility] Comment on above: Order Comment: Speci men Type: BLOOD SPECIMENOrdering Facility: [facility] Address: [address] [place] [address] Performed By: #### 5 8410-2 ####[facility] LABIA [id number] [place] [address] [place] WBC (Bld) [#/Vol] 11.86 10*3/uL High 3.70-11.00 [facility] Comment on above: Order Comment: Speci men Type: BLOOD SPECIMENOrdering Facility: [facility] Address: [address] [place] [id number] Performed By: #### 5 8410-2 ####[facility] LABCLIA [id number] [address] CNPEliana 08-29-2022 CNPN Telephone (ANGEL) -- OLAF BRIONES ([id number]) 1945 M Date Time Provider Department 08/29/22 [...] Hematuria [R31.9] 08/27/2022 Coronary artery disease involving ewiiaapaayp hinton*08/27/2022 Adverse reaction to antiplatelet agent [T45.7X5*08/27/2022 Myocardial infarction (HCC) [I21.9] 08/27/2022 Primary hypertension [I10] 08/27/2022 Type 2 diabetes mellitus without complication, *08/27/2022 Leukocytosis [D72.829] 08/27/2022 Malnutrition of mild degree (HCC) [E44.1] 08/29/2022 Encounter Status:Closed by DAVID ANDREWS on 08/29/22 Normal [facility] CONSULT PROGon 08-29-2022 CONSULT PROG HNO ID: [id number] Author: Rodriguez Miller APRN.PROCESSING SPECIALIST Service: Cardiovascular Medicine Author Type: Nurse Practitioner Type: Consult Progress Note Filed: 08/29/2022 11:18 AM Note Text: [facility] CONSULT PROGRESS NOTE (Template ID [id number]) CONSULTING SERVICE: Cardiology: Consult Team PRIMARY SERVICE: [...] 08/29/2022 0700 Gross per 24 hour Intake 36645.5 ml Output 84570 ml Net 5853.5 ml TELEMETRY: SR IMAGING: [...] echocardiographic exam for comparison. Stent card from [facility] from 08/20/2022 DATA: Laboratory: Recent Labs 08/29/22 03208/29/22 02408/28/228 WBC 13.57* 11.86* 16.02* HB 10.6* 9.1* [...] TURP (2006) who presented to [facility] (more content not included)... Normal [facility] Comprehensive metabolic 2000 panelon 08-29-2022 Albumin [Mass/Vol] 4.2 g/dL Normal 3.9-4.9 [facility] Comment on above: Order Comment: Speci men Type: BLOOD SPECIMENOrdering Facility: [facility] Address: [address] [address] Performed By: #### 2 4323-8 ####[facility] LABCLIA [id number] [place] [address] [place] ALP [Catalytic activity/Vol] 116 U/L High 38-113 [facility] Comment on above: Order Comment: Speci men Type: BLOOD SPECIMENOrdering Facility: [facility] Address: [address] [address] Performed By: #### 2 4323-8 ####[facility] LABCLIA [id number] [place] [address] [place] ALT [Catalytic activity/Vol] 20 U/L Normal 10-54 [facility] Comment on above: Order Comment: Speci men Type: BLOOD SPECIMENOrdering Facility: [facility] Address: [address] [address] Performed By: #### 2 4323-8 ####[facility] LABCLIA [id number] [place] [address] [place] Anion gap [Moles/Vol] 13 mmol/L Normal 9-18 [facility] Comment on above: Order Comment: Speci men Type: BLOOD SPECIMENOrdering Facility: [facility] Address: [address] [address] Performed By: #### 2 4323-8 ####[facility] LABCLIA [id number] [place] [address] [place] AST [Catalytic activity/Vol] 19 U/L Normal 14-40 [facility] Comment on above: Order Comment: Speci men Type: BLOOD SPECIMENOrdering Facility: [facility] Address: [address] [place] [address] Performed By: #### 2 4323-8 ####[facility] LABCLIA [id number] [place] [address] [place] Bilirubin [Mass/Vol] 0.4 mg/dL Normal 0.2-1.3 [facility] Comment on above: Order Comment: Speci men Type: BLOOD SPECIMENOrdering Facility: [facility] Address: [address] [place] [address] Performed By: #### 2 4323-8 ####[facility] LABCLIA [id number] [place] [address] [place] Calcium [Mass/Vol] 9.4 mg/dL Normal 8.5-10.2 [facility] Comment on above: Order Comment: Speci men Type: BLOOD SPECIMENOrdering Facility: [facility] Address: [address] [place] [address] Performed By: #### 2 4323-8 ####[facility] LABCLIA [id number] [place] [address] [place] Chloride [Moles/Vol] 102 mmol/L Normal 97-105 [facility] Comment on above: Order Comment: Speci men Type: BLOOD SPECIMENOrdering Facility: [facility] Address: [address] [place] [address] Performed By: #### 2 4323-8 ####[facility] LABCLIA [id number] [place] [address] [place] CO2 [Moles/Vol] 25 mmol/L Normal 22-30 [facility] Comment on above: Order Comment: Speci men Type: BLOOD SPECIMENOrdering Facility: [facility] Address: [address] [address] Performed By: #### 2 4323-8 ####[facility] [id number] [address] STATES OF [facility] Creatinine [Mass/Vol] 0.86 mg/dL Normal 0.73-1.22 [facility] Comment on above: Order Comment: Speci men Type: BLOOD SPECIMENOrdering Facility: [facility] Address: [address] [address] Performed By: #### 2 4323-8 ####[facility] [id number] [address] [place] ESTIMATED GLOMERULAR FILTRATION RATE 89 mL/min/1.73m??? Normal >=60 [facility] Comment on above: Order Comment: Janiei men Type: BLOOD SPECIMENOrdering Facility: [facility] Address: [address] [place] [address] Result Comment: Mariaelena mated Glomerular Filtration Rate [...] actual GFR. Performed By: #### 2 4323-8 ####[facility]BRATT[facility] [id number] [place] [address] [place] Glucose [Mass/Vol] 166 mg/dL High 74-99 [facility] Comment on above: Order Comment: Portia tay Type: BLOOD SPECIMENOrdering Facility: [facility] Address: [address] [place] [address] Result Comment: The [place] [employer] (ADA) provides guidance for cutoff [...] Standards of Medical Care in Diabetes 2016, [place] [employer]. Diabetes Care. 2016.39(Suppl 1). Performed By: #### 2 4323-8 ####[facility] LABCLIA [id number] [place] [address] [place] Potassium [Moles/Vol] 3.9 mmol/L Normal 3.7-5.1 [facility] Comment on above: Order Comment: Speci men Type: BLOOD SPECIMENOrdering Facility: [facility] Address: [address] [place] [address] Performed By: #### 2 4323-8 ####[facility] LABIA [id number] [place] [address] [place] Protein [Mass/Vol] 6.6 g/dL Normal 6.3-8.0 [facility] Comment on above: Order Comment: Speci men Type: BLOOD SPECIMENOrdering Facility: [facility] Address: [address] [place] [address] Performed By: #### 2 4323-8 ####[facility] LABCLIA [id number] [place] [address] [place] Sodium [Moles/Vol] 140 mmol/L Normal 136-144 [facility] Comment on above: Order Comment: Speci men Type: BLOOD SPECIMENOrdering Facility: [facility] Address: [address] [address] Performed By: #### 2 4323-8 ####[facility] LABCLIA [id number] [place] [address] [place] Urea nitrogen [Mass/Vol] 21 mg/dL Normal 9-24 [facility] Comment on above: Order Comment: Speci men Type: BLOOD SPECIMENOrdering Facility: [facility] Address: [address] Performed By: #### 2 4323-8 ####[facility] LABCLIA [id number] [place] [address] [place] Albumin [Mass/Vol] 3.6 g/dL Low 3.9-4.9 [facility] Comment on above: Order Comment: Speci men Type: BLOOD SPECIMENOrdering Facility: [facility] Address: [address] Performed By: #### 2 4323-8 ####[facility] LABCLIA [id number] [place] [address] [place] ALP [Catalytic activity/Vol] 96 U/L Normal 38-113 [facility] Comment on above: Order Comment: Speci men Type: BLOOD SPECIMENOrdering Facility: [facility] Address: [address] Performed By: #### 2 4323-8 ####[facility] LABCLIA [id number] [place] [address] [place] ALT [Catalytic activity/Vol] 18 U/L Normal 10-54 [facility] Comment on above: Order Comment: Speci men Type: BLOOD SPECIMENOrdering Facility: [facility] Address: [address] [id number] Performed By: #### 2 4323-8 ####[facility] LABCLIA [id number] [place] [address] [place] Anion gap [Moles/Vol] 10 mmol/L Normal 9-18 [facility] Comment on above: Order Comment: Speci men Type: BLOOD SPECIMENOrdering Facility: [facility] Address: [address] Performed By: #### 2 4323-8 ####[facility] LABCLIA [id number] [place] [address] [place] AST [Catalytic activity/Vol] 16 U/L Normal 14-40 [facility] Comment on above: Order Comment: Speci men Type: BLOOD SPECIMENOrdering Facility: [facility] Address: [address] [place] [address] Performed By: #### 2 4323-8 ####[facility] LABCLIA [id number] [place] [address] [place] Bilirubin [Mass/Vol] 0.5 mg/dL Normal 0.2-1.3 [facility] Comment on above: Order Comment: Speci men Type: BLOOD SPECIMENOrdering Facility: [facility] Address: [address] [place] [address] Performed By: #### 2 4323-8 ####[facility] LABCLIA [id number] [place] [address] [place] Calcium [Mass/Vol] 8.7 mg/dL Normal 8.5-10.2 [facility] Comment on above: Order Comment: Speci men Type: BLOOD SPECIMENOrdering Facility: [facility] Address: [address] [place], [place] [address] Performed By: #### 2 4323-8 ####[facility] LABCLIA [id number] [place] [address] [place] Chloride [Moles/Vol] 105 mmol/L Normal 97-105 [facility] Comment on above: Order Comment: Speci men Type: BLOOD SPECIMENOrdering Facility: [facility] Address: [address] [place], [place] [address] Performed By: #### 2 4323-8 ####[facility] LABCLIA [id number] [place] [address] [place] CO2 [Moles/Vol] 24 mmol/L Normal 22-30 [facility] Comment on above: Order Comment: Speci men Type: BLOOD SPECIMENOrdering Facility: [facility] Address: [address] [address] Performed By: #### 2 4323-8 ####[facility] LABIA [id number] [place] [address] [place] Creatinine [Mass/Vol] 0.78 mg/dL Normal 0.73-1.22 [facility] Comment on above: Order Comment: Speci men Type: BLOOD SPECIMENOrdering Facility: [facility] Address: [address] [address] Performed By: #### 2 4323-8 ####[facility] LABIA [id number] [place] [address] [place] ESTIMATED GLOMERULAR FILTRATION RATE 92 mL/min/1.73m??? Normal >=60 [facility] Comment on above: Order Comment: Speci men Type: BLOOD SPECIMENOrdering Facility: [facility] Address: [address] [place] [address] Result Comment: Mariaelena mated Glomerular Filtration Rate [...] actual GFR. Performed By: #### 2 4323-8 ####[facility] LABIA [id number] [place] [address] [place] Glucose [Mass/Vol] 217 mg/dL High 74-99 [facility] Comment on above: Order Comment: Speci men Type: BLOOD SPECIMENOrdering Facility: [facility] Address: [address] [address] Result Comment: The [place] Diabetes Association (ADA) provides guidance for cutoff [...] Standards of Medical Care in Diabetes 2016, [place] [employer]. Diabetes Care. 2016.39(Suppl 1). Performed By: #### 2 4323-8 ####[facility] LABCLIA [id number] [place] [address] [place] Potassium [Moles/Vol] 3.9 mmol/L Normal 3.7-5.1 [facility] Comment on above: Order Comment: Speci men Type: BLOOD SPECIMENOrdering Facility: [facility] Address: [address] [place] [address] Performed By: #### 2 4323-8 ####[facility] LABIA [id number] [place] [address] [place] Protein [Mass/Vol] 5.6 g/dL Low 6.3-8.0 [facility] Comment on above: Order Comment: Speci men Type: BLOOD SPECIMENOrdering Facility: [facility] Address: [address] [address] Performed By: #### 2 4323-8 ####[facility] LABCLIA [id number] [place] [address] [place] Sodium [Moles/Vol] 139 mmol/L Normal 136-144 [facility] Comment on above: Order Comment: Speci men Type: BLOOD SPECIMENOrdering Facility: [facility] Address: [address] [address] Performed By: #### 2 4323-8 ####[facility] LABCLIA [id number] [place] [address] [place] Urea nitrogen [Mass/Vol] 14 mg/dL Normal 9-24 [facility] Comment on above: Order Comment: Speci men Type: BLOOD SPECIMENOrdering Facility: [facility] Address: [address] [place], [place] [address] Performed By: #### 2 4323-8 ####[facility] LABCLIA [id number] [facility] [address] [place] Albumin [Mass/Vol] 3.6 g/dL Low 3.9-4.9 [facility] Comment on above: Order Comment: Speci men Type: BLOOD SPECIMENOrdering Facility: [facility] Address: [address] [place], [place] [address] Performed By: #### 2 777-1, , ####[facility] LABCLIA [id number] [place] [address] [place] ALP [Catalytic activity/Vol] 98 U/L Normal 38-113 [facility] Comment on above: Order Comment: Speci men Type: BLOOD SPECIMENOrdering Facility: [facility] Address: [address] [place], [place] [address] Performed By: #### 2 777-1, , ####[facility] LABCLIA [id number] [place] [address] [place] ALT [Catalytic activity/Vol] 19 U/L Normal 10-54 [facility] Comment on above: Order Comment: Speci men Type: BLOOD SPECIMENOrdering Facility: [facility] Address: [address] [place], [place] [address] Performed By: #### 2 777-1, , ####[facility] LABCLIA [id number] [employer] [place] [id number] [place] Anion gap [Moles/Vol] 12 mmol/L Normal 9-18 [facility] Comment on above: Order Comment: Speci men Type: BLOOD SPECIMENOrdering Facility: [facility] Address: [address] [place] [address] Performed By: #### 2 777-1, , ####[facility] LABCLIA [id number] [place] [address] [place] AST [Catalytic activity/Vol] 18 U/L Normal 14-40 [facility] Comment on above: Order Comment: Speci men Type: BLOOD SPECIMENOrdering Facility: [facility] Address: [address] [place] [address] Performed By: #### 2 777-1, 32896-8, ####[facility] LABCLIA [id number] [place] [address] [place] Bilirubin [Mass/Vol] 0.7 mg/dL Normal 0.2-1.3 [facility] Comment on above: Order Comment: Speci men Type: BLOOD SPECIMENOrdering Facility: [facility] Address: [address] [place] [address] Performed By: #### 2 777-1, , ####[facility] LABCLIA [id number] [place] [address] [place] Calcium [Mass/Vol] 8.3 mg/dL Low 8.5-10.2 [facility] Comment on above: Order Comment: Speci men Type: BLOOD SPECIMENOrdering Facility: [facility] Address: [address] [place], [place] [address] Performed By: #### 2 777-1, 11200-1, ####[facility] LABCLIA [id number] [place] [address] [place] Chloride [Moles/Vol] 102 mmol/L Normal 97-105 [facility] Comment on above: Order Comment: Speci men Type: BLOOD SPECIMENOrdering Facility: [facility] Address: [address] [address] Performed By: #### 2 777-1, 65834-0, ####[facility] LABCLIA [id number] [place] [address] [place] CO2 [Moles/Vol] 22 mmol/L Normal 22-30 [facility] Comment on above: Order Comment: Speci men Type: BLOOD SPECIMENOrdering Facility: [facility] Address: [address] [place] [address] Performed By: #### 2 777-1, , ####[facility] LABCLIA [id number] [place] [address] [place] Creatinine [Mass/Vol] 0.69 mg/dL Low 0.73-1.22 [facility] Comment on above: Order Comment: Speci men Type: BLOOD SPECIMENOrdering Facility: [facility] Address: [address] [place] [address] Performed By: #### 2 777-1, , ####[facility] LABCLIA [id number] [place] [address] [place] ESTIMATED GLOMERULAR FILTRATION RATE 95 mL/min/1.73m??? Normal >=60 [facility] Comment on above: Order Comment: Speci men Type: BLOOD SPECIMENOrdering Facility: [facility] Address: [address] [place] [address] Result Comment: Mariaelena mated Glomerular Filtration Rate [...] GFR. Performed By: #### 2 777-1, , ####[facility] LABCLIA [id number] [place] [address] [place] Glucose [Mass/Vol] 202 mg/dL High 74-99 [facility] Comment on above: Order Comment: Speci men Type: BLOOD SPECIMENOrdering Facility: [facility] Address: [address] [place] [address] Result Comment: The [place] Diabetes Association (ADA) provides guidance for cutoff [...] Standards of Medical Care in Diabetes 2016, [place] [employer]. Diabetes Care. 2016.39(Suppl 1). Performed By: #### 2 777-1, 75467-8, 38063-4 ####[facility] LABIA [id number] [place] [address] [place] Potassium [Moles/Vol] 4.1 mmol/L Normal 3.7-5.1 [facility] Comment on above: Order Comment: Speci men Type: BLOOD SPECIMENOrdering Facility: [facility] Address: [address] [place], [place] [address] Performed By: #### 2 777-1, 95513-2, 93892-7 ####[facility] LABIA [id number] [place] [address] [place] Protein [Mass/Vol] 5.5 g/dL Low 6.3-8.0 [facility] Comment on above: Order Comment: Speci men Type: BLOOD SPECIMENOrdering Facility: [facility] Address: [address] [place] [address] Performed By: #### 2 777-1, 36903-2, ####[facility] LABCLIA [id number] [place] [address] [place] Sodium [Moles/Vol] 136 mmol/L Normal 136-144 [facility] Comment on above: Order Comment: Speci men Type: BLOOD SPECIMENOrdering Facility: [facility] Address: [address] [place], [place] [address] Performed By: #### 2 777-1, 78941-6, ####[facility] LABIA [id number] [place] [address] [place] Urea nitrogen [Mass/Vol] 14 mg/dL Normal 9-24 [facility] Comment on above: Order Comment: Speci men Type: BLOOD SPECIMENOrdering Facility: [facility] Address: [address] [place] [address] Performed By: #### 2 777-1, 66697-0, ####[facility] LABIA [id number] [place] [address] [place] Albumin [Mass/Vol] 3.0 g/dL Low 3.9-4.9 [facility] Comment on above: Order Comment: Speci men Type: BLOOD SPECIMENOrdering Facility: [facility] Address: [address] [place], [place] [address] Result Comment: Resu lt rechecked. Performed By: #### 1 9123-9, 27708-18, ####[facility] LABIA [id number] [address] [place] [id number] [place] ALP [Catalytic activity/Vol] 88 U/L Normal 38-113 [facility] Comment on above: Order Comment: Speci men Type: BLOOD SPECIMENOrdering Facility: [facility] Address: [address] [place], [place] [address] Performed By: #### 1 9123-9, 27708-18, ####[facility] LABCLIA [id number] [place] [address] [place] ALT [Catalytic activity/Vol] 15 U/L Normal 10-54 [facility] Comment on above: Order Comment: Speci men Type: BLOOD SPECIMENOrdering Facility: [facility] Address: [address] [place] [address] Performed By: #### 1 9123-9, 27708-18, ####[facility] LABCLIA [id number] [place] [address] [place] Anion gap [Moles/Vol] 14 mmol/L Normal 9-18 [facility] Comment on above: Order Comment: Speci men Type: BLOOD SPECIMENOrdering Facility: [facility] Address: [address] [place] [address] Performed By: #### 1 9123-9, 27708-18, ####[facility] LABIA [id number] [place] [address] [place] AST [Catalytic activity/Vol] 16 U/L Normal 14-40 [facility] Comment on above: Order Comment: Speci men Type: BLOOD SPECIMENOrdering Facility: [facility] Address: [address] [place] [address] Performed By: #### 1 9123-9, 27708-18, ####[facility] LABCLIA [id number] [place] [address] [place] Bilirubin [Mass/Vol] 0.6 mg/dL Normal 0.2-1.3 [facility] Comment on above: Order Comment: Speci men Type: BLOOD SPECIMENOrdering Facility: [facility] Address: [address] [place] [address] Performed By: #### 1 9123-9, 27708-18, 84967-6 ####[facility] LABCLIA [id number] [place] [address] [place] Calcium [Mass/Vol] 8.4 mg/dL Low 8.5-10.2 [facility] Comment on above: Order Comment: Speci men Type: BLOOD SPECIMENOrdering Facility: [facility] Address: [address] [place] [address] Performed By: #### 1 9123-9, 2777-, 28949-1 ####[facility] LABCLIA [id number] [place] [address] [place] Chloride [Moles/Vol] 103 mmol/L Normal 97-105 [facility] Comment on above: Order Comment: Speci men Type: BLOOD SPECIMENOrdering Facility: [facility] Address: [address] [place] [address] Performed By: #### 1 9123-9, 27708-18, 92527-1 ####[facility] LABCLIA [id number] [place] [address] [place] CO2 [Moles/Vol] 20 mmol/L Low 22-30 [facility] Comment on above: Order Comment: Speci men Type: BLOOD SPECIMENOrdering Facility: [facility] Address: [address] [place] [address] Performed By: #### 1 9123-9, 27708-18, 52137-8 ####[facility] LABCLIA [id number] [place] [address] [place] Creatinine [Mass/Vol] 0.64 mg/dL Low 0.73-1.22 [facility] Comment on above: Order Comment: Speci men Type: BLOOD SPECIMENOrdering Facility: [facility] Address: [address] [place], [place] [address] Performed By: #### 1 9123-9, 277-, 43727-2 ####[facility] LABCLIA [id number] [place] [address] [place] ESTIMATED GLOMERULAR FILTRATION RATE 98 mL/min/1.73m??? Normal >=60 [facility] Comment on above: Order Comment: Portia tay Type: BLOOD SPECIMENOrdering Facility: [facility] Address: [address] [id number] Result Comment: Mariaelena mated Glomerular Filtration Rate [...] GFR. Performed By: #### 1 9123-9, 2777-, 07005-5 ####[facility] LABCLIA [id number] [place] [address] [place] Glucose [Mass/Vol] 186 mg/dL High 74-99 [facility] Comment on above: Order Comment: Portia tay Type: BLOOD SPECIMENOrdering Facility: [facility] Address: [address] Result Comment: The [place] Diabetes Association (ADA) provides guidance for cutoff [...] Standards of Medical Care in Diabetes 2016, [place] [employer]. Diabetes Care. 2016.39(Suppl 1). Performed By: #### 1 9123-9, 2777-, 71049-8 ####[facility] LABCLIA [id number] [place] [id number] [place] Potassium [Moles/Vol] 4.0 mmol/L Normal 3.7-5.1 [facility] Comment on above: Order Comment: Speci men Type: BLOOD SPECIMENOrdering Facility: [facility] Address: [address] [address] Performed By: #### 1 9123-9, 2776-02, ####[facility] LABCLIA [id number] [facility] [place] [address] [place] Protein [Mass/Vol] 5.1 g/dL Low 6.3-8.0 [facility] Comment on above: Order Comment: Speci men Type: BLOOD SPECIMENOrdering Facility: [facility] Address: [address] [address] Performed By: #### 1 9123-9, 2776-02, ####[facility] LABCLIA [id number] [place] [address] [place] Sodium [Moles/Vol] 137 mmol/L Normal 136-144 [facility] Comment on above: Order Comment: Speci men Type: BLOOD SPECIMENOrdering Facility: [facility] Address: [address] Performed By: #### 1 9123-9, 2776-02, ####[facility] LABIA [id number] [place] [address] [place] Urea nitrogen [Mass/Vol] 12 mg/dL Normal 9-24 [facility] Comment on above: Order Comment: Speci men Type: BLOOD SPECIMENOrdering Facility: [facility] Address: [address] Performed By: #### 1 9123-9, 2776-02, ####[facility] LABCLIA [id number] [employer] [facility] [address] [address] [place] ECG COMPLETEon 08-29-2022 ECG COMPLETE Ventricular Rate : 7 0 BPM Atrial Rate : 70 BPM P-R Interval : 186 ms QRS Duration : 102 ms Q-T Interval : 454 ms QTC Calculation(Bazett) : 490 ms Calculated P [employer] [place] : 44 degrees Calculated R [employer] [place] : -26 degrees Calculated T [employer] [place] : -27 degrees SINUS RHYTHM WITH PREMATURE ATRIAL COMPLEXES NONSPECIFIC ST ABNORMALITY ABNORMAL ECG Confirmed by ERICK STEWARD MD (65) on 08/31/2022 7:45:00 AM NAME : OLAF BRIONES PID : [id number] : 1945 Gender : Male Race : Unknown ORD : [id number] Procedure Date : Aug 29 2022 00:07:53 Edit Date : Aug 31 2022 07:45:03 Diagnosis: SINUS RHYTHM WITH PREMATURE ATRIAL COMPLEXES NONSPECIFIC ST ABNORMALITY ABNORMAL ECG Confirmed by ERICK STEWARD MD (65) on 08/31/2022 7:45:00 AM Test Reason : Post-OP Location : [address] [place], [place] [id number] Overread By : ERICK STEWARD MD Edited By : ERICK STEWARD MD Referred By : , Acquired by : NAHOMI RINALDI [facility] Magnesium SerPl-ncon 08-29 Magnesium [Mass/Vol] 2.1 mg/dL Normal 1.7-2.3 [facility] Comment on above: Order Comment: Speci men Type: BLOOD SPECIMENOrdering Facility: [facility] Address: [address] [place], [place] [address] Performed By: #### 2 777-1, 23374-0, 73976-7 ####[facility] LABIA [id number] [address] STATES OF [facility] Magnesium [Mass/Vol] 1.8 mg/dL Normal 1.7-2.3 [facility] Comment on above: Order Comment: Speci men Type: BLOOD SPECIMENOrdering Facility: [facility] Address: [address] [place], [place] [address] Performed By: #### 1 9123-9, 2777-1, 26298-6 ####[facility] LABCLIA [id number] [address] [address] [place] PT panel Coag (PPP)on 2022 INR Coag (PPP) [Relative time] 1.0 {INR} Normal 0.9-1.3 [facility] Comment on above: Order Comment: Portia tay Type: BLOOD SPECIMENOrdering Facility: [facility] Address: [address] [place] [address] Result Comment: Mago min K Antagonist (VKA) Therapeutic Range: INR 2 to 3 (Target INR of 2.5) Note: For patients treated with VKA drugs, such as warfarin, the [employer] [employer] 2012 Guideline recommends [...] Chest 2012, 141:7S-47S Daniel RA, et al. [facility] 2017, 70: 252-289 Performed By: #### 3 4528-0, 41402-7 ####[facility] LABIA [id number] [place] [address] [place] PT Coag (PPP) [Time] 10.7 s Normal 9.7-13.0 [facility] Comment on above: Order Comment: Portia tay Type: BLOOD SPECIMENOrdering Facility: [facility] Address: [address] [place] [id number] Performed By: #### 3 4528-0, 28858-5 ####[facility] LABIA [id number] [address] [place] INR Coag (PPP) [Relative time] 1.1 {INR} Normal 0.9-1.3 [facility] Comment on above: Order Comment: Portia tay Type: BLOOD SPECIMENOrdering Facility: [facility] Address: [address] [id number] Result Comment: Mago min K Antagonist (VKA) Therapeutic Range: INR 2 to 3 (Target INR of 2.5) Note: For patients treated with VKA drugs, such as warfarin, the [employer] 2012 Guideline recommends [...] Chest 2012, 141:7S-47S Daniel RA, et al. [facility] 2017, 70: 252-289 Performed By: #### 3 4528-0, 25938-8 ####[facility] [id number] [place] [address] [place] PT Coag (PPP) [Time] 11.2 s Normal 9.7-13.0 [facility] Comment on above: Order Comment: Speci men Type: BLOOD SPECIMENOrdering Facility: [facility] Address: [address] [place], [place] [address] Performed By: #### 3 4528-0, 75245-4 ####[facility] [id number] [place] [id number] [place] Phosphate SerPl-mCncon 08-29 Phosphate [Mass/Vol] 4.9 mg/dL High 2.7-4.8 [facility] Comment on above: Order Comment: Janiei jasvir Type: BLOOD SPECIMENOrdering Facility: [facility] Address: [address] [place], [place] [address] Performed By: #### 2 777-1, 10311-2, 09954-1 ####[facility] LABCLIA [id number] [facility] [place] [address] [place] Phosphate [Mass/Vol] 4.2 mg/dL Normal 2.7-4.8 [facility] Comment on above: Order Comment: Speci men Type: BLOOD SPECIMENOrdering Facility: [facility] Address: [address] [place] [address] Performed By: #### 1 9123-9, 2777-1, 75724-3 ####[facility] LABCLIA [id number] [facility] [place] [address] [place] THERAPY NTon 08-29-2022 THERAPY NT HNO ID: [id number] Author: Jenna Duggan, PT Service: Physical Therapy Author Type: Physical Therapist Type: Therapy (PT/OT/Speech/Resp) Filed: 08/29/2022 2:51 PM Note Text: Physical Therapy Evaluation SERVICE DATE: 08/29/2022 SERVICE TIME: 1403 to 1438 ROOM: [place] [address] Recommended Discharge Disposition: Home Anticipated Discharge Needs: [...] recent STEMI (08/20/2022), transferred from [facility] for gross hematuria. Currently with 18Fr 3-way catheter on CBI. 08/28/22: s/p cystoscopy, clot evacuation, cystolitholapaxy, TURP. Admitted to SICU postoperatively due to pressor requirements and risk of hyponatremia due to length of TURP. 22Fr [address] hernandez placed introp, on traction and CBI. Reason for Hospital Admission: Pt 77y/o male transferred from [facility] for gross hematuria secondary to recent STEMI [...] General Deviations/Observations: Diana decreased, Flexed trunk posture -[facility]: 7: Walk 25 feet or more [...] Reduced mobility-other Interventions Provided: Evaluation, Therapeutic Activity (73281), Gait Training (44851) $ Evaluation-Moderate (36135) Billed Units: 1 unit Therapeutic Activity (86904) Treatment Minutes: 7 $ Therapeutic Activity (84812) Billed Units: 0 units Gait Training (76139) Treatment Minutes: 13 $ Gait Training (10718) Billed Units: 1 unit Training AND Education Provided in: Benefits of In-Hospital Mobility, Bed Mobility, Energy Conservation, Equipment, Exer (more content not included)... Normal [facility] THERAPY NT HNO ID: [id number] Author: Alia Smith OTR/L Service: Occupational Therapy Author Type: Occupational Therapist Type: Therapy (PT/OT/Speech/Resp) Filed: 08/29/2022 11:06 AM Note Text: Occupational Therapy Evaluation SERVICE DATE: 08/29/2022 SERVICE TIME: 0850 to 0921 ROOM: [place] [address] Recommended Discharge Disposition: Home Anticipated Discharge Needs: [...] recent STEMI (08/20/2022), transferred from [facility] for gross hematuria. Currently with 18Fr 3-way catheter on CBI. 08/28/22: s/p cystoscopy, clot evacuation, cystolitholapaxy, TURP. Admitted to SICU postoperatively due to pressor requirements and risk of hyponatremia due to length of TURP. 22Fr [address] hernandez placed introp, on traction and CBI. 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 [facility] aPTT PPPon 08-29-2022 aPTT Coag (PPP) [Time] 21.0 s Low 23.0-32.4 [facility] Comment on above: Order Comment: Speci men Type: BLOOD SPECIMENOrdering Facility: [facility] Address: [address] [address] Performed By: #### 3 4528-0, 83858-5 ####[facility] [id number] [address] aPTT Coag (PPP) [Time] 26.1 s Normal 23.0-32.4 [facility] Comment on above: Order Comment: Speci men Type: BLOOD SPECIMENOrdering Facility: [facility] Address: [address] [address] Performed By: #### 3 4528-0, 38409-3 ####[facility] [id number] [address] OF [facility] ANES POSTPROC EVALon 023 ANES POSTPROC EVAL HNO ID: [id number] Author: Michelle Day MD Service: ? Author Type: Anesthesiologist Type: Anesthesia Postprocedure Evaluation Filed: 08/28/2022 8:38 PM Note Text: POST ANESTHESIA EVALUATION NOTE : 1945 Procedure Summary Date: 08/28/22 Room / Location: [address] [facility] Anesthesia Start: 1752 Anesthesia Stop: 2030 Procedure: [...] August 28, 2022 TIME: 8:37 PM CSN: [id number] [facility] ANES PRE-OPon 08-28-2022 ANES PRE-OP HNO ID: [id number] Author: Weston Avila MD Service: ? Author Type: Anesthesiologist Type: Anesthesia Preprocedure Evaluation Filed: 08/28/2022 6:10 PM Note Text: ANESTHESIOLOGY DAY OF SURGERY NOTE : 1945 Procedure Information Anesthesia Start Date/Time: 08/28/221752 Procedure: CYSTOURETHROSCOPY FULGURATION BLADDER (Bladder) Location: [place] [address] / [facility] Surgeons: David Andrews MD Estimated body mass index is 25.23 kg/m? as calculated from the following: Height as of this encounter: 173 cm (5' 8.11 ). Weight as of this encounter: 75.5 kg (166 lb 7.2 oz). 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 Patient / Responsible Republican agrees to proceed: yes Patient / Surrogate [...] Vitals Value Taken Time BP Pulse 78 08/28/22 1753 Resp Temp SpO2 99 % 08/28/22 1753 Facility-Administered Medications as of 08/28/2022 Medication Dose [...] as nee (more content not included)... Normal [facility] ANES PREOPon 08-28-2022 ANES PREOP HNO ID: [id number] Author: Jaycee Bernard MD Service: Anesthesiology Author [...] a 77 year old male with Olaf Hahl is a 77 year old male with [...] (166 lb 7.2 oz) REVIEW OF SYSTEMS: SNAP ATTACHER: no history of SNAP ATTACHER disease RESP: no history of pulmonary disease, [...] done. L (more content not included)... Normal [facility] BRIEF OP NOTon 08-28-2022 BRIEF OP NOT HNO ID: [id number] Author: Gt Mcgowan MD Service: Urology Author Type: Resident Type: Brief Op Note Filed: 08/28/2022 7:50 PM Note Text: BRIEF OP NOTE LOG ID: [id number] Surgery/Procedure Date: 08/28/2022 Incision/Procedure Start Time: 6:17 PM Incision Close/Procedure End Time: Surgeon(s)/Proceduralist(s ) and Spreading Machine Operator(s): Surgeon(s) and Role: * David Andrews MD [...] 28, 2022 TIME: 7:48 PM PAGER/CONTACT #: [phone] Post-op Plan: To SICU Normal [facility] Basic metabolic 2000 panelon 08-28-2022 Anion gap [Moles/Vol] 9 mmol/L Normal 9-18 [facility] Comment on above: Order Comment: Speci men Type: BLOOD SPECIMENOrdering Facility: [facility] Address: [address] [place] [address] Performed By: #### 2 4321-2 ####[facility] LABCLIA [id number] [place] [address] [place] Calcium [Mass/Vol] 8.8 mg/dL Normal 8.5-10.2 [facility] Comment on above: Order Comment: Speci men Type: BLOOD SPECIMENOrdering Facility: [facility] Address: [address] [place] [address] Performed By: #### 2 4321-2 ####[facility] LABCLIA [id number] [place] [address] [place] Chloride [Moles/Vol] 108 mmol/L High 97-105 [facility] Comment on above: Order Comment: Speci men Type: BLOOD SPECIMENOrdering Facility: [facility] Address: [address] [place] [address] Performed By: #### 2 4321-2 ####[facility] LABCLIA [id number] [place] [address] [place] CO2 [Moles/Vol] 24 mmol/L Normal 22-30 [facility] Comment on above: Order Comment: Speci men Type: BLOOD SPECIMENOrdering Facility: [facility] Address: [address] [address] Performed By: #### 2 4321-2 ####[facility] LABIA [id number] [address] STATES OF [facility] Creatinine [Mass/Vol] 0.79 mg/dL Normal 0.73-1.22 [facility] Comment on above: Order Comment: Speci men Type: BLOOD SPECIMENOrdering Facility: [facility] Address: [address] [address] Performed By: #### 2 4321-2 ####[facility] LABIA [id number] [address] [place] ESTIMATED GLOMERULAR FILTRATION RATE 91 mL/min/1.73m??? Normal >=60 [facility] Comment on above: Order Comment: Speci men Type: BLOOD SPECIMENOrdering Facility: [facility] Address: [address] [address] Result Comment: Mariaelena mated Glomerular Filtration Rate [...] actual GFR. Performed By: #### 2 4321-2 ####[facility] LABIA [id number] [place] [address] [place] Glucose [Mass/Vol] 137 mg/dL High 74-99 [facility] Comment on above: Order Comment: Speci men Type: BLOOD SPECIMENOrdering Facility: [facility] Address: [address] [place] [address] Result Comment: The [place] Diabetes Association (ADA) provides guidance for cutoff [...] Standards of Medical Care in Diabetes 2016, [place] [employer]. Diabetes Care. 2016.39(Suppl 1). Performed By: #### 2 4321-2 ####[facility] LABCLIA [id number] [place] [address] [place] Potassium [Moles/Vol] 4.0 mmol/L Normal 3.7-5.1 [facility] Comment on above: Order Comment: Speci men Type: BLOOD SPECIMENOrdering Facility: [facility] Address: [address] [place] [address] Performed By: #### 2 4321-2 ####[facility] LABIA [id number] [place] [address] [place] Sodium [Moles/Vol] 141 mmol/L Normal 136-144 [facility] Comment on above: Order Comment: Speci men Type: BLOOD SPECIMENOrdering Facility: [facility] Address: [address] [place] [address] Performed By: #### 2 4321-2 ####[facility] LABIA [id number] [place] [address] [place] Urea nitrogen [Mass/Vol] 18 mg/dL Normal 9-24 [facility] Comment on above: Order Comment: Speci men Type: BLOOD SPECIMENOrdering Facility: [facility] Address: [address] [place] [address] Performed By: #### 2 4321-2 ####[facility] LABIA [id number] [place] [address] [place] CALCULI ANALYSISon 3 Calculus analysis [Interp] Normal [facility] Comment on above: Order Comment: Speci men Type: CALCULUS SPECIMENOrdering Facility: [facility] Address: [address] [place] [address] Result Comment: This test was developed and its performance characteristics determined by [facility] Pathology and Laboratory Medicine [place] ([facility]). It has not been cleared or approved by the FDA. [facility] is regulated under CLIA as qualified to perform high-complexity testing. This test is used for clinical purposes. It should not be regarded as investigational or for research. Performed By: #### C SA ####[facility] LABIA [id number] [address] CALCULUS COLOR BROWN Normal [facility] Comment on above: Order Comment: Speci men Type: CALCULUS SPECIMENOrdering Facility: [facility] Address: [address] [place] [address] Performed By: #### C SA ####[facility] LABCLIA [id number] [address] CALCULUS COMPOSITION 1 50% Calcium Oxala te Monohydrate Normal [facility] Comment on above: Order Comment: Speci men Type: CALCULUS SPECIMENOrdering Facility: [facility] Address: [address] [place] [address] Performed By: #### C SA ####[facility] LABCLIA [id number] [address] OF [facility] CALCULUS COMPOSITION 2 40% Calcium Oxala te Dihydrate Normal [facility] Comment on above: Order Comment: Speci men Type: CALCULUS SPECIMENOrdering Facility: [facility] Address: [address] [place] [address] Performed By: #### C SA ####[facility] LABIA [id number] [address] OF [facility] CALCULUS COMPOSITION 3 10% Minor Components Normal [facility] Comment on above: Order Comment: Speci men Type: CALCULUS SPECIMENOrdering Facility: [facility] Address: [address] [address] Performed By: #### C SA ####[facility] LABIA [id number] [address] CALCULUS SIZE AND WT 0.4 X 0.3 X 0.1 CM 0.0163 GRAMS Normal [facility] Comment on above: Order Comment: Speci men Type: CALCULUS SPECIMENOrdering Facility: [facility] Address: [address] [place] [address] Performed By: #### C SA ####[facility] LABIA [id number] [address] [place] CALCULUS TYPE Calculus, CALCULI/CALCULUS Normal [facility] Comment on above: Order Comment: Speci men Type: CALCULUS SPECIMENOrdering Facility: [facility] Address: [address] [place] [address] Performed By: #### C SA ####[facility] [id number] [place] [address] [place] CBC panel Auto (Bld)on 08-28 Erythrocyte distribution width (RBC) [Ratio] 12.7 % Normal 11.5-15.0 [facility] Comment on above: Order Comment: Speci men Type: BLOOD SPECIMENOrdering Facility: [facility] Address: [address] [place] [address] Performed By: #### 5 8410-2 ####[facility]BRATT[facility] [id number] [place] [address] [place] Hematocrit (Bld) [Volume fraction] 35.7 % Low 39.0-51.0 [facility] Comment on above: Order Comment: Speci men Type: BLOOD SPECIMENOrdering Facility: [facility] Address: [address] [place] [address] Performed By: #### 5 8410-2 ####[facility] LABIA [id number] [place] [address] [place] Hemoglobin (Bld) [Mass/Vol] 12.1 g/dL Low 13.0-17.0 [facility] Comment on above: Order Comment: Speci men Type: BLOOD SPECIMENOrdering Facility: [facility] Address: [address] [place] [address] Performed By: #### 5 8410-2 ####[facility] LABIA [id number] [place] [address] [place] MCH (RBC) [Entitic mass] 31.8 pg Normal 26.0-34.0 [facility] Comment on above: Order Comment: Speci men Type: BLOOD SPECIMENOrdering Facility: [facility] Address: [address] [place] [address] Performed By: #### 5 8410-2 ####[facility]BRATT[facility] [id number] [address] STATES OF [facility] MCHC (RBC) [Mass/Vol] 33.9 g/dL Normal 30.5-36.0 [facility] Comment on above: Order Comment: Speci men Type: BLOOD SPECIMENOrdering Facility: [facility] Address: [address] [place] [address] Performed By: #### 5 8410-2 ####[facility]BR[facility] [id number] [address] [place] MCV (RBC) [Entitic vol] 93.7 fL Normal 80.0-100.0 C [facility] Comment on above: Order Comment: Speci men Type: BLOOD SPECIMENOrdering Facility: [facility] Address: [address] [place] [address] Performed By: #### 5 8410-2 ####[facility]BRATT[facility] [id number] [id number] [address] [place] Nucleated RBC (Bld) [#/Vol] 10*3/uL Normal <0.01 [facility] Comment on above: Order Comment: Speci men Type: BLOOD SPECIMENOrdering Facility: [facility] Address: [address] [place], [place] [address] Performed By: #### 5 8410-2 ####[facility] LABCLIA [id number] [place] [address] [place] Platelet mean volume (Bld) [Entitic vol] 11.3 fL Normal 9.0-12.7 [facility] Comment on above: Order Comment: Speci men Type: BLOOD SPECIMENOrdering Facility: [facility] Address: [address] [place], [place] [address] Performed By: #### 5 8410-2 ####[facility] LABCLIA [id number] [place] [address] [place] Platelets (Bld) [#/Vol] 179 10*3/uL Normal 150-400 [facility] Comment on above: Order Comment: Speci men Type: BLOOD SPECIMENOrdering Facility: [facility] Address: [address] [place], [place] [address] Performed By: #### 5 8410-2 ####[facility] LABIA [id number] [place] [address] [place] RBC (Bld) [#/Vol] 3.81 10*6/uL Low 4.20-6.00 [facility] Comment on above: Order Comment: Speci men Type: BLOOD SPECIMENOrdering Facility: [facility] Address: [address] [place], [place] [address] Performed By: #### 5 8410-2 ####[facility] LABCLIA [id number] [place] [address] [place] WBC (Bld) [#/Vol] 16.02 10*3/uL High 3.70-11.00 [facility] Comment on above: Order Comment: Speci men Type: BLOOD SPECIMENOrdering Facility: [facility] Address: [address] [address] Performed By: #### 5 8410-2 ####[facility] LABIA [id number] [address] [place] Erythrocyte distribution width (RBC) [Ratio] 12.8 % Normal 11.5-15.0 [facility] Comment on above: Order Comment: Speci men Type: BLOOD SPECIMENOrdering Facility: [facility] Address: [address] [place] [address] Performed By: #### 5 8410-2 ####[facility] LABIA [id number] [address] [place] Hematocrit (Bld) [Volume fraction] 32.6 % Low 39.0-51.0 [facility] Comment on above: Order Comment: Speci men Type: BLOOD SPECIMENOrdering Facility: [facility] Address: [address] [place] [address] Performed By: #### 5 8410-2 ####[facility] LABIA [id number] [place] [address] [place] Hemoglobin (Bld) [Mass/Vol] 11.1 g/dL Low 13.0-17.0 [facility] Comment on above: Order Comment: Speci men Type: BLOOD SPECIMENOrdering Facility: [facility] Address: [address] [place], [place] [address] Performed By: #### 5 8410-2 ####[facility] LABIA [id number] [place] [address] [place] MCH (RBC) [Entitic mass] 31.6 pg Normal 26.0-34.0 [facility] Comment on above: Order Comment: Speci men Type: BLOOD SPECIMENOrdering Facility: [facility] Address: [address] [place], [place] [address] Performed By: #### 5 8410-2 ####[facility] LABIA [id number] [address] STATES [facility] MCHC (RBC) [Mass/Vol] 34.0 g/dL Normal 30.5-36.0 [facility] Comment on above: Order Comment: Speci men Type: BLOOD SPECIMENOrdering Facility: [facility] Address: [address] [place], [place] [address] Performed By: #### 5 8410-2 ####[facility] LABIA [id number] [address] [place] MCV (RBC) [Entitic vol] 92.9 fL Normal 80.0-100.0 [facility] Comment on above: Order Comment: Speci men Type: BLOOD SPECIMENOrdering Facility: [facility] Address: [address] [place], [place] [address] Performed By: #### 5 8410-2 ####[facility] [id number] [address] STATES [facility] Nucleated RBC (Bld) [#/Vol] 10*3/uL Normal <0.01 [facility] Comment on above: Order Comment: Speci men Type: BLOOD SPECIMENOrdering Facility: [facility] Address: [address] [place], [place] [address] Performed By: #### 5 8410-2 ####[facility] LABIA [id number] [address] STATES [facility] Platelet mean volume (Bld) [Entitic vol] 11.2 fL Normal 9.0-12.7 [facility] Comment on above: Order Comment: Speci men Type: BLOOD SPECIMENOrdering Facility: [facility] Address: [address] [place], [place] [address] Performed By: #### 5 8410-2 ####[facility] LABIA [id number] [address] [place] Platelets (Bld) [#/Vol] 172 10*3/uL Normal 150-400 [facility] Comment on above: Order Comment: Speci men Type: BLOOD SPECIMENOrdering Facility: [facility] Address: [address] [place] [address] Performed By: #### 5 8410-2 ####[facility] LABCLIA [id number] [place] [address] [place] RBC (Bld) [#/Vol] 3.51 10*6/uL Low 4.20-6.00 [facility] Comment on above: Order Comment: Speci men Type: BLOOD SPECIMENOrdering Facility: [facility] Address: [address] [place] [address] Performed By: #### 5 8410-2 ####[facility] LABCLIA [id number] [place] [address] [facility] WBC (Bld) [#/Vol] 11.53 10*3/uL High 3.70-11.00 [facility] Comment on above: Order Comment: Speci men Type: BLOOD SPECIMENOrdering Facility: [facility] Address: [address] [place] [address] Performed By: #### 5 8410-2 ####[facility] LABCLIA [id number] [address] OF [facility] CONSULT PROGon 08-28-2022 CONSULT PROG HNO ID: [id number] Author: Uzma Bates MD Service: Cardiovascular Medicine [...] INTRAVENOUS DIRECTED PRN PHYSICAL EXAM: 08/27/22203608/28/22 0106 08/28/2252208/28/22 09 BP: 124/66 98/56 116/57 129/70 Pulse: 71 [...] 08/28/2022 1045 Gross per 24 hour Intake 72873.5 ml Output 53013 ml Net -25984.5 ml TELEMETRY: DATA: Laboratory: Recent Labs 08/28/22 [...] TURP (2006) who presented to [facility] ED 08/26/22 for development of gross hematuria with lower pelvic pain x2 days. He was found to have elevated WBC with + UA, and started on IV atbx. He was transferred to [facility] 08/27 for further management. He was continued [...] urologic p (more content not included)... Normal [facility] Comprehensive metabolic 2000 panelon 08-28-2022 Albumin [Mass/Vol] 4.1 g/dL Normal 3.9-4.9 [facility] Comment on above: Order Comment: Speci men Type: BLOOD SPECIMENOrdering Facility: [facility] Address: [address] [id number] Performed By: #### 1 9123-9, 57137-4, 27708-18 ####[facility] LABIA [id number] [place] [address] [place] ALP [Catalytic activity/Vol] 119 U/L High 38-113 [facility] Comment on above: Order Comment: Speci men Type: BLOOD SPECIMENOrdering Facility: [facility] Address: [address] [id number] Performed By: #### 1 9123-9, 58803-9, 2777 ####[facility] LABCLIA [id number] [place] [address] [place] ALT [Catalytic activity/Vol] 23 U/L Normal 10-54 [facility] Comment on above: Order Comment: Speci men Type: BLOOD SPECIMENOrdering Facility: [facility] Address: [address] [place] [address] Performed By: #### 1 9123-9, 73022-9, 277- ####[facility] LABCLIA [id number] [place] [address] [place] Anion gap [Moles/Vol] 10 mmol/L Normal 9-18 [facility] Comment on above: Order Comment: Speci men Type: BLOOD SPECIMENOrdering Facility: [facility] Address: [address] [place] [address] Performed By: #### 1 9123-9, 54727-2, 27708-18 ####[facility] LABCLIA [id number] [place] [address] [place] AST [Catalytic activity/Vol] 21 U/L Normal 14-40 [facility] Comment on above: Order Comment: Speci men Type: BLOOD SPECIMENOrdering Facility: [facility] Address: [address] [place] [address] Performed By: #### 1 9123-9, 35784-2, 27708-18 ####[facility] LABCLIA [id number] [place] [address] [place] Bilirubin [Mass/Vol] 1.1 mg/dL Normal 0.2-1.3 [facility] Comment on above: Order Comment: Speci men Type: BLOOD SPECIMENOrdering Facility: [facility] Address: [address] [place] [address] Performed By: #### 1 9123-9, 01657-2, 277- ####[facility] LABCLIA [id number] [place] [address] [place] Calcium [Mass/Vol] 9.1 mg/dL Normal 8.5-10.2 [facility] Comment on above: Order Comment: Speci men Type: BLOOD SPECIMENOrdering Facility: [facility] Address: [address] [address] Performed By: #### 1 9123-9, 09195-5, 2777- ####[facility] LABCLIA [id number] [place] [address] [place] Chloride [Moles/Vol] 105 mmol/L Normal 97-105 [facility] Comment on above: Order Comment: Speci men Type: BLOOD SPECIMENOrdering Facility: [facility] Address: [address] [address] Performed By: #### 1 9123-9, 66711-6, 2777- ####[facility] LABCLIA [id number] [place] [address] [place] CO2 [Moles/Vol] 24 mmol/L Normal 22-30 [facility] Comment on above: Order Comment: Speci men Type: BLOOD SPECIMENOrdering Facility: [facility] Address: [address] [place] [address] Performed By: #### 1 9123-9, 28296-1, 2777- ####[facility] LABCLIA [id number] [place] [address] [place] Creatinine [Mass/Vol] 0.76 mg/dL Normal 0.73-1.22 [facility] Comment on above: Order Comment: Speci men Type: BLOOD SPECIMENOrdering Facility: [facility] Address: [address] [place], [place] [id number] Performed By: #### 1 9123-9, 42046-5, 2777- ####[facility] LABIA [id number] [place] [address] [place] ESTIMATED GLOMERULAR FILTRATION RATE 93 mL/min/1.73m??? Normal >=60 [facility] Comment on above: Order Comment: Speci men Type: BLOOD SPECIMENOrdering Facility: [facility] Address: [address] [place], [place] [address] Result Comment: Mariaelena mated Glomerular Filtration Rate [...] actual GFR. Performed By: #### 1 9123-9, 91234-6, 277- ####[facility] LABCLIA [id number] [address] [address] [place] Glucose [Mass/Vol] 147 mg/dL High 74-99 [facility] Comment on above: Order Comment: Portia tay Type: BLOOD SPECIMENOrdering Facility: [facility] Address: [address] [address] Result Comment: The [place] Diabetes Association (ADA) provides guidance for cutoff [...] Standards of Medical Care in Diabetes 2016, [place] [employer]. Diabetes Care. 2016.39(Suppl 1). Performed By: #### 1 9123-9, 29117-6, 2776-02 ####[facility] LABIA [id number] [address] [address] [place] Potassium [Moles/Vol] 4.2 mmol/L Normal 3.7-5.1 [facility] Comment on above: Order Comment: Portia tay Type: BLOOD SPECIMENOrdering Facility: [facility] Address: [address] [place] [address] Performed By: #### 1 9123-9, 07744-8, 1 ####[facility] LABCLIA [id number] [place] [address] [place] Protein [Mass/Vol] 6.6 g/dL Normal 6.3-8.0 [facility] Comment on above: Order Comment: Speci men Type: BLOOD SPECIMENOrdering Facility: [facility] Address: [address] [place] [address] Performed By: #### 1 9123-9, 68971-8, 2777 ####[facility] LABIA [id number] [place] [address] [place] Sodium [Moles/Vol] 139 mmol/L Normal 136-144 [facility] Comment on above: Order Comment: Speci men Type: BLOOD SPECIMENOrdering Facility: [facility] Address: [address] [place] [address] Performed By: #### 1 9123-9, 46958-9, 2777 ####[facility] LABIA [id number] [place] [address] [place] Urea nitrogen [Mass/Vol] 14 mg/dL Normal 9-24 [facility] Comment on above: Order Comment: Speci men Type: BLOOD SPECIMENOrdering Facility: [facility] Address: [address] [place] [address] Performed By: #### 1 9123-9, 48876-1, 2777 ####[facility] LABIA [id number] [place] [id number] [place] ECHOon 08-28-2022 Echocardiography Echocardiography Rep ort: Transthoracic Echo [facility] Bedside Date of service: 08/28/2022 9:45:03 AM ESTATE TRANSACTION COORDINATOR Ordering physician: DAVID ANDREWS Indication: Evaluation of [...] * * Final * * * [facility] : [id number] Normal [facility] HISTORY PHYSICALon HISTORY PHYSICAL HNO ID: [id number] Author: Earnest Portillo MD Service: Critical Care Author Type: Physician Type: HANDP Filed: 08/28/2022 10:48 PM Note Text: SERVICE DATE: 08/28/2022 SERVICE TIME: 9:49 PM SICU HANDP NOTE HPI: Olaf Briones is a 77 year old male with PMHx of recent STEMI on 08/20/22 (s/p JUHI),HTN, HLD, DM, nephrolithiasis, transferred from [facility] for gross hematuria. He is now s/p [...] Is Patient Clinically Ready to Transfer to [facility] or SDU?: No Discharge Planning: To be [...] ASA and ticagrelor Coronary artery disease involving ewiiaapaayp coronary artery of ewiiaapaayp heart without angina pectoris recent STEMI on 08/20/22 s/p JUHI Plan -Continue DAPT with ASA and ticagrelor Endocrinology Type 2 diabetes mellitus without complication, without long-term current use of insulin (HCC) No (more content not included)... Normal [facility] Magnesium SerPl-mCncon 08-28 Magnesium [Mass/Vol] 2.1 mg/dL Normal 1.7-2.3 [facility] Comment on above: Order Comment: Speci men Type: BLOOD SPECIMENOrdering Facility: [facility] Address: [address] [place] [address] Performed By: #### 1 9123-9, 73184-9, 2777-1 ####[facility] LABCLIA [id number] [facility] ERK [address] OPERATIVE NOon 08-28-2022 OPERATIVE NO HNO ID: [id number] Author: David Andrews MD Service: Urology Author Type: Physician Type: Operative Report Filed: 08/28/2022 8:20 PM Note Text: OPERATIVE/PROCEDURE REPORT LOG ID: [id number] Surgery/Procedure Date: 08/28/2022 Incision/Procedure Start Time: 6:17 PM Incision Close/Procedure End Time: 7:50 PM Surgeon(s)/Proceduralist(s ) and Spreading Machine Operator(s): Surgeon(s) and Role: * David Andrews MD [...] cold cup biopsy forceps as a stone field marketing director to allow for the stone to be [...] dictating on behalf of David Andrews MD [facility] STAFF PHYSICIAN NOTE OF PE (more content not included)... Normal [facility] Phosphate SerPl-ncon 08-28 Phosphate [Mass/Vol] 2.9 mg/dL Normal 2.7-4.8 [facility] Comment on above: Order Comment: Speci men Type: BLOOD SPECIMENOrdering Facility: [facility] Address: [address] [id number] Performed By: #### 1 9123-9, 40202-6, 2777-1 ####[facility] LABCLIA [id number] [place] [address] [place] SURGICAL PATHOLOGYon 023 CASE REPORT Normal [facility] Comment on above: Order Comment: Speci men Type: TISSUE SPECIMENOrdering Facility: [facility] Address: [address] [place] [address] Result Comment: Surg [facility] Pathology Report Case: [id number] Authorizing Provider: David Andrews MD Collected: 08/28/2022 06:54 PM Ordering Location: Admitting Received: 08/29/2022 07:58 AM Pathologist: Gal Poon MD Specimens: A) - PROSTATE TISSUE (CHIPS) B) - PROSTATE TISSUE (CHIPS), #2 Performed By: #### S ####[facility] LABCLIA [id number] [address] OF [facility] CLINICAL HISTORY Normal [facility] Comment on above: Order Comment: Speci men Type: TISSUE SPECIMENOrdering Facility: [facility] Address: [address] [place] [address] Result Comment: Pre- op diagnosis: Hematuria [R31.9] Performed By: #### S ####[facility] LABCLIA [id number] [address] FINAL DIAGNOSIS Normal [facility] Comment on above: Order Comment: Speci men Type: TISSUE SPECIMENOrdering Facility: [facility] Address: [address] [place] [address] Result Comment: AAltagracia Teixeira rostate, transurethral resection: - Benign prostatic hyperplasia. A. 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 Performed By: #### S ####[facility] LABCLIA [id number] [address] FINAL PERFORMING LAB Normal [facility] Comment on above: Order Comment: Speci men Type: TISSUE SPECIMENOrdering Facility: [facility] Address: [address] [place] [address] Result Comment: Diag nostic interpretation performed at [facility], [address] [address] CLIA# [id number] Chain Splitter: Jacob Urias M.D. Performed By: #### S ####[facility] [id number] [place] [address] [place] GROSS DESCRIPTION Normal [facility] Comment on above: Order Comment: Speci men Type: TISSUE SPECIMENOrdering Facility: [facility] Address: [address] [address] Result Comment: A. P ROSTATE TISSUE (CHIPS) [...] in cassette B1. Gross examination performed at [facility], [address] 08/29/2022 2:10 PM Performed By: #### S ####[facility] [id number] [place] [address] [place] VENOUS BLOOD GASES WITH IONI ZED MAGNESIUMon 08-28-2022 BASE DEFICIT, VENOUS -1 mmol/L Normal -2-0 [facility] Comment on above: Order Comment: Speci men Type: VENOUS BLOOD SPECIMENOrdering Facility: [facility] Address: [address] [address] Performed By: #### V ALLMG ####[facility] [id number] [place] [address] [place] Calcium.ionized (Bld) [Mass/Vol] 1.19 mmol/L Normal 1.08-1.30 [facility] Comment on above: Order Comment: Speci men Type: VENOUS BLOOD SPECIMENOrdering Facility: [facility] Address: [address] Performed By: #### V ALLMG ####[facility] [id number] [place] [address] [place] Calcium.ionized adjusted to pH 7.4 (BldA) [Moles/Vol] 1.18 mmol/L Normal 1.08-1.30 [facility] Comment on above: Order Comment: Speci men Type: VENOUS BLOOD SPECIMENOrdering Facility: [facility] Address: [address] [address] Performed By: #### V ALLMG ####[facility] [id number] [place] [address] [place] Carboxyhemoglobin (BldV) [Mass fraction] 1.9 % Normal 0.0-2.0 [facility] Comment on above: Order Comment: Speci men Type: VENOUS BLOOD SPECIMENOrdering Facility: [facility] Address: [address] [address] Result Comment: Carb oxyhemoglobin Reference Range for Smokers: 2.0-8.0% Performed By: #### V ALLMG ####[facility] [id number] [place] [address] [place] CO2 (BldV) [Partial pressure] 40 mm[Hg] Low 42-55 [facility] Comment on above: Order Comment: Speci men Type: VENOUS BLOOD SPECIMENOrdering Facility: [facility] Address: [address] Performed By: #### V ALLMG ####[facility]BR[facility] [id number] [place] [address] [place] CO2 [Moles/Vol] 25 mmol/L Normal 25-29 [facility] Comment on above: Order Comment: Speci men Type: VENOUS BLOOD SPECIMENOrdering Facility: [facility] Address: [address] Performed By: #### V ALLMG ####[facility] LABCLIA [id number] [place] [address] [place] CO2 adjusted to patient's actual temperature (BldV) [Partial pressure] 40 mmHg Low 42-55 [facility] Comment on above: Order Comment: Speci men Type: VENOUS BLOOD SPECIMENOrdering Facility: [facility] Address: [address] [place] [address] Performed By: #### V ALLMG ####[facility] LABCLIA [id number] [place] [address] [place] Glucose [Mass/Vol] 120 mg/dL High 60-105 [facility] Comment on above: Order Comment: Speci men Type: VENOUS BLOOD SPECIMENOrdering Facility: [facility] Address: [address] [place] [address] Performed By: #### V ALLMG ####[facility] LABCLIA [id number] [place] [address] [place] HCO3 (Bld) [Moles/Vol] 24 mmol/L Normal 24-28 [facility] Comment on above: Order Comment: Speci men Type: VENOUS BLOOD SPECIMENOrdering Facility: [facility] Address: [address] [place], [place] [address] Performed By: #### V ALLMG ####[facility] LABCLIA [id number] [place] [address] [place] Hematocrit (Bld) [Volume fraction] 37.2 % Low 39.0-51.0 [facility] Comment on above: Order Comment: Speci men Type: VENOUS BLOOD SPECIMENOrdering Facility: [facility] Address: [address] [place], [place] [address] Performed By: #### V ALLMG ####[facility] LABCLIA [id number] [place] [address] [place] Hemoglobin (Bld) [Mass/Vol] 12.1 g/dL Low 13.0-17.0 [facility] Comment on above: Order Comment: Speci men Type: VENOUS BLOOD SPECIMENOrdering Facility: [facility] Address: [address] Performed By: #### V ALLMG ####[facility] LABIA [id number] [place] [address] [place] Lactate [Moles/Vol] 1.4 mmol/L Normal 0.5-2.2 [facility] Comment on above: Order Comment: Speci men Type: VENOUS BLOOD SPECIMENOrdering Facility: [facility] Address: [address] Performed By: #### V ALLMG ####[facility] LABIA [id number] [place] [address] [place] Magnesium [Moles/Vol] 0.58 mmol/L Normal 0.45-0.60 [facility] Comment on above: Order Comment: Speci men Type: VENOUS BLOOD SPECIMENOrdering Facility: [facility] Address: [address] Performed By: #### V ALLMG ####[facility] LABIA [id number] [place] [address] [place] Methemoglobin (Bld) [Mass fraction] 1.7 % High 0.0-1.5 [facility] Comment on above: Order Comment: Speci men Type: VENOUS BLOOD SPECIMENOrdering Facility: [facility] Address: [address] Performed By: #### V ALLMG ####[facility] LABIA [id number] [place] [address] [place] Oxygen (BldV) [Partial pressure] 96 mm[Hg] High 35-45 [facility] Comment on above: Order Comment: Speci men Type: VENOUS BLOOD SPECIMENOrdering Facility: [facility] Address: [address] Performed By: #### V ALLMG ####[facility] LABCLIA [id number] [place] [address] [place] Oxygen adjusted to patient's actual temperature (BldV) [Partial pressure] 96 mmHg High 35-45 [facility] Comment on above: Order Comment: Speci men Type: VENOUS BLOOD SPECIMENOrdering Facility: [facility] Address: [address] [place], [place] [address] Performed By: #### V ALLMG ####[facility] LABCLIA [id number] [place] [address] [place] Oxygen saturation in Venous blood 97 % High 60-85 [facility] Comment on above: Order Comment: Speci men Type: VENOUS BLOOD SPECIMENOrdering Facility: [facility] Address: [address] [place], [place] [address] Performed By: #### V ALLMG ####[facility] LABCLIA [id number] [place] [address] [place] Oxyhemoglobin (BldV) [Mass fraction] 94 % High 60-85 [facility] Comment on above: Order Comment: Speci men Type: VENOUS BLOOD SPECIMENOrdering Facility: [facility] Address: [address] [place], [place] [address] Performed By: #### V ALLMG ####[facility] LABCLIA [id number] [place] [address] [place] pH (BldV) 7.39 [pH] Normal 7.32-7.42 [facility] Comment on above: Order Comment: Speci men Type: VENOUS BLOOD SPECIMENOrdering Facility: [facility] Address: [address] [place], [place] [address] Performed By: #### V ALLMG ####[facility] LABCLIA [id number] [place] [address] [place] pH adjusted to patient's actual temperature (BldV) 7.39 Normal 7.32-7.42 [facility] Comment on above: Order Comment: Speci men Type: VENOUS BLOOD SPECIMENOrdering Facility: [facility] Address: [address] [place] [address] Performed By: #### V ALLMG ####[facility] LABCLIA [id number] [place] [address] [place] Potassium [Moles/Vol] 3.8 mmol/L Normal 3.5-5.0 [facility] Comment on above: Order Comment: Speci men Type: VENOUS BLOOD SPECIMENOrdering Facility: [facility] Address: [address] [place] [address] Performed By: #### V ALLMG ####[facility] LABCLIA [id number] [place] [address] [place] Sodium [Moles/Vol] 139 mmol/L Normal 136-144 [facility] Comment on above: Order Comment: Speci men Type: VENOUS BLOOD SPECIMENOrdering Facility: [facility] Address: [address] [place] [address] Performed By: #### V ALLMG ####[facility] LABCLIA [id number] [place] [address] [place] XR CHEST 1V [...] tortuous. Other: Generalized osteopenia. IMPRESSION: See result. Locker Attendant: PSCB Transcribe Date/Time: Aug 28 2022 10:04P Dictated by : AMERICO ADHIKARI MD This examination was interpreted and the report reviewed and electronically signed by: AMERICO ADHIKARI MD on Aug 28 2022 10:06PM EST [id number] Normal [facility] Bacteria Bld Culton 08-28-19 23 Bacteria identified Cx Nom (Bld) CULTURE, BLOOD: No growth 5 days Normal [facility] Comment on above: Performed By: #### 6 00-7 ####[facility] LABCLIA [id number] [place] [address] [place] Bacteria identified Cx Nom (Bld) CULTURE, BLOOD: No growth 5 days Normal [facility] Comment on above: Performed By: #### 6 00-7 ####[facility] LABCLIA [id number] [place] [address] [place] Bacteria Ur Culton 3 Bacteria identified Cx Nom (U) CULTURE, URINE: No growth (<1,000 CFU/ml) Normal [facility] Comment on above: Performed By: #### 6 30-4 ####[facility] LABCLIA [id number] [place] [address] [place] Basic metabolic 2000 panelon 08-27-2022 Anion gap [Moles/Vol] 13 mmol/L Normal 9-18 [facility] Comment on above: Order Comment: Speci men Type: BLOOD SPECIMENOrdering Facility: [facility] Address: [address] [place], [place] [address] Performed By: #### 2 4321-2, 14212-0, 2777-1 ####[facility] LABCLIA [id number] [place] [address] [place] Calcium [Mass/Vol] 9.3 mg/dL Normal 8.5-10.2 [facility] Comment on above: Order Comment: Speci men Type: BLOOD SPECIMENOrdering Facility: [facility] Address: [address] Performed By: #### 2 4321-2, , 2776-02 ####[facility] LABCLIA [id number] [place] [address] [place] Chloride [Moles/Vol] 105 mmol/L Normal 97-105 [facility] Comment on above: Order Comment: Speci men Type: BLOOD SPECIMENOrdering Facility: [facility] Address: [address] [place], [place] [address] Performed By: #### 2 4321-2, , 2776-02 ####[facility] LABCLIA [id number] [place] [address] [place] CO2 [Moles/Vol] 22 mmol/L Normal 22-30 [facility] Comment on above: Order Comment: Speci men Type: BLOOD SPECIMENOrdering Facility: [facility] Address: [address] [place], [place] [address] Performed By: #### 2 4321-2, , 2776-02 ####[facility] LABCLIA [id number] [place] [address] [place] Creatinine [Mass/Vol] 0.79 mg/dL Normal 0.73-1.22 [facility] Comment on above: Order Comment: Speci men Type: BLOOD SPECIMENOrdering Facility: [facility] Address: [address] [place], [place] [address] Performed By: #### 2 4321-2, , 2776-02 ####[facility] LABCLIA [id number] [place] [address] [place] ESTIMATED GLOMERULAR FILTRATION RATE 91 mL/min/1.73m??? Normal >=60 [facility] Comment on above: Order Comment: Speci men Type: BLOOD SPECIMENOrdering Facility: [facility] Address: [address] [place] [address] Result Comment: Mariaelena mated Glomerular Filtration Rate [...] Performed By: #### 2 4321-2, , 2776-02 ####[facility] LABCLIA [id number] [place] [address] [place] Glucose [Mass/Vol] 197 mg/dL High 74-99 [facility] Comment on above: Order Comment: Portia tay Type: BLOOD SPECIMENOrdering Facility: [facility] Address: [address] [place] [address] Result Comment: The [place] [employer] (ADA) provides guidance for cutoff [...] Standards of Medical Care in Diabetes 2016, [place] [employer]. Diabetes Care. 2016.39(Suppl 1). Performed By: #### 2 4321-2, , 2776-02 ####[facility] LABCLIA [id number] [place] [id number] [place] Potassium [Moles/Vol] 4.3 mmol/L Normal 3.7-5.1 [facility] Comment on above: Order Comment: Portia tay Type: BLOOD SPECIMENOrdering Facility: [facility] Address: [address] [place], [place] [address] Performed By: #### 2 4321-2, 60713-4, 2777 ####[facility] LABCLIA [id number] [place] [address] [place] Sodium [Moles/Vol] 140 mmol/L Normal 136-144 [facility] Comment on above: Order Comment: Speci men Type: BLOOD SPECIMENOrdering Facility: [facility] Address: [address] [place], [place] [address] Performed By: #### 2 4321-2, 97923-6, 27708-18 ####[facility] LABCLIA [id number] [place] [address] [place] Urea nitrogen [Mass/Vol] 17 mg/dL Normal 9-24 [facility] Comment on above: Order Comment: Speci men Type: BLOOD SPECIMENOrdering Facility: [facility] Address: [address] [place] [address] Performed By: #### 2 4321-2, , 27708-18 ####[facility] LABIA [id number] [place] [address] [place] CASE MGT INIT ASSESon 2022 CASE MGT INIT ASSES HNO ID: [id number] Author: Yane George RN Service: ? Author [...] Current Advance Directive: Health Care Power of Assistant Facility Manager (Patient reports he has AD. request copy [...] General wellness, Be able to go home [place] Explained: [place] Given: No Reason Not Given: [...] HLD, DM, nephrolithiasis who was transferred from [facility] w/ gross hematuria CM met patient in [...] 27, 2022 TIME: 5:05 PM CONTACT #: [phone] Normal [facility] CBC W Auto Differential pane l (Bld)on 08-27-2022 Basophils (Bld) [#/Vol] 0.03 10*3/uL Normal <0.11 [facility] Comment on above: Order Comment: Speci men Type: BLOOD SPECIMENOrdering Facility: [facility] Address: [address] Performed By: #### 5 7021-8 ####[facility] LABCLIA [id number] [address] [place] Basophils/100 WBC (Bld) 0.2 % Normal [facility] Comment on above: Order Comment: Speci men Type: BLOOD SPECIMENOrdering Facility: [facility] Address: [address] Performed By: #### 5 7021-8 ####[facility] LABCLIA [id number] [place] [address] [place] Differential cell count method Nom (Bld) Auto Normal [facility] Comment on above: Order Comment: Speci men Type: BLOOD SPECIMENOrdering Facility: [facility] Address: [address] Performed By: #### 5 7021-8 ####[facility] [facility] LABCLIA [id number] [place] [address] [place] Eosinophils (Bld) [#/Vol] 10*3/uL Normal <0.46 [facility] Comment on above: Order Comment: Speci men Type: BLOOD SPECIMENOrdering Facility: [facility] Address: [address] Performed By: #### 5 7021-8 ####[facility] LABCLIA [id number] [address] STATES OF [facility] Eosinophils/100 WBC (Bld) 0.1 % Normal [facility] Comment on above: Order Comment: Speci men Type: BLOOD SPECIMENOrdering Facility: [facility] Address: [address] [place] [address] Performed By: #### 5 7021-8 ####[facility] LABCLIA [id number] [place] [address] [place] Erythrocyte distribution width (RBC) [Ratio] 12.5 % Normal 11.5-15.0 [facility] Comment on above: Order Comment: Speci men Type: BLOOD SPECIMENOrdering Facility: [facility] Address: [address] [place] [address] Performed By: #### 5 7021-8 ####[facility] LABCLIA [id number] [place] [address] [place] Hematocrit (Bld) [Volume fraction] 38.5 % Low 39.0-51.0 [facility] Comment on above: Order Comment: Speci men Type: BLOOD SPECIMENOrdering Facility: [facility] Address: [address] [place] [address] Performed By: #### 5 7021-8 ####[facility] LABCLIA [id number] [place] [address] [place] Hemoglobin (Bld) [Mass/Vol] 13.4 g/dL Normal 13.0-17.0 [facility] Comment on above: Order Comment: Speci men Type: BLOOD SPECIMENOrdering Facility: [facility] Address: [address] [place] [address] Performed By: #### 5 7021-8 ####[facility] LABIA [id number] [place] [address] [place] Immature granulocytes (Bld) [#/Vol] 0.10 10*3/uL High <0.10 [facility] Comment on above: Order Comment: Speci men Type: BLOOD SPECIMENOrdering Facility: [facility] Address: [address] [place], [place] [address] Performed By: #### 5 7021-8 ####[facility] LABCLIA [id number] [address] [place] Immature granulocytes/100 WBC (Bld) 0.6 % Normal [facility] Comment on above: Order Comment: Speci men Type: BLOOD SPECIMENOrdering Facility: [facility] Address: [address] [place] [address] Performed By: #### 5 7021-8 ####[facility] LABCLIA [id number] [place] [address] [place] Lymphocytes (Bld) [#/Vol] 1.16 10*3/uL Normal 1.00-4.00 [facility] Comment on above: Order Comment: Speci men Type: BLOOD SPECIMENOrdering Facility: [facility] Address: [address] [place] [address] Performed By: #### 5 7021-8 ####[facility] LABCLIA [id number] [place] [address] [place] Lymphocytes/100 WBC (Bld) 7.1 % Normal [facility] Comment on above: Order Comment: Speci men Type: BLOOD SPECIMENOrdering Facility: [facility] Address: [address] Performed By: #### 5 7021-8 ####[facility] LABCLIA [id number] [place] [address] [place] MCH (RBC) [Entitic mass] 31.5 pg Normal 26.0-34.0 [facility] Comment on above: Order Comment: Speci men Type: BLOOD SPECIMENOrdering Facility: [facility] Address: [address] Performed By: #### 5 7021-8 ####[facility] LABCLIA [id number] [place] [address] [place] MCHC (RBC) [Mass/Vol] 34.8 g/dL Normal 30.5-36.0 [facility] Comment on above: Order Comment: Speci men Type: BLOOD SPECIMENOrdering Facility: [facility] Address: [address] Performed By: #### 5 7021-8 ####[facility] LABCLIA [id number] [place] [address] [place] MCV (RBC) [Entitic vol] 90.6 fL Normal 80.0-100.0 C [facility] Comment on above: Order Comment: Speci men Type: BLOOD SPECIMENOrdering Facility: [facility] Address: [address] [place] [address] Performed By: #### 5 7021-8 ####[facility] LABIA [id number] [place] [address] [place] Monocytes (Bld) [#/Vol] 1.00 10*3/uL High <0.87 [facility] Comment on above: Order Comment: Speci men Type: BLOOD SPECIMENOrdering Facility: [facility] Address: [address] [place] [address] Performed By: #### 5 7021-8 ####[facility] LABIA [id number] [place] [address] [place] Monocytes/100 WBC (Bld) 6.2 % Normal C [facility] Comment on above: Order Comment: Speci men Type: BLOOD SPECIMENOrdering Facility: [facility] Address: [address] [place], [place] [address] Performed By: #### 5 7021-8 ####[facility] LABIA [id number] [place] [address] [place] Neutrophils (Bld) [#/Vol] 13.93 10*3/uL High 1.45-7.50 [facility] Comment on above: Order Comment: Speci men Type: BLOOD SPECIMENOrdering Facility: [facility] Address: [address] [place], [place] [address] Performed By: #### 5 7021-8 ####[facility] LABIA [id number] [place] [address] [place] Neutrophils/100 WBC (Bld) 85.8 % Normal [facility] Comment on above: Order Comment: Speci men Type: BLOOD SPECIMENOrdering Facility: [facility] Address: [address] [place], [place] [address] Performed By: #### 5 7021-8 ####[facility] LABIA [id number] [place] [address] [place] Nucleated RBC (Bld) [#/Vol] 10*3/uL Normal <0.01 [facility] Comment on above: Order Comment: Speci men Type: BLOOD SPECIMENOrdering Facility: [facility] Address: [address] [place], [place] [address] Performed By: #### 5 7021-8 ####[facility] [id number] [place] [address] [place] Nucleated RBC/100 WBC (Bld) [Ratio] 0.0 /100 WBC Normal [facility] Comment on above: Order Comment: Speci men Type: BLOOD SPECIMENOrdering Facility: [facility] Address: [address] [place], [place] [address] Performed By: #### 5 7021-8 ####[facility] LABIA [id number] [place] [address] [place] Platelet mean volume (Bld) [Entitic vol] 11.4 fL Normal 9.0-12.7 [facility] Comment on above: Order Comment: Speci men Type: BLOOD SPECIMENOrdering Facility: [facility] Address: [address] [place] [address] Performed By: #### 5 7021-8 ####[facility] LABIA [id number] [place] [address] [place] Platelets (Bld) [#/Vol] 214 10*3/uL Normal 150-400 [facility] Comment on above: Order Comment: Speci men Type: BLOOD SPECIMENOrdering Facility: [facility] Address: [address] [place] [address] Performed By: #### 5 7021-8 ####[facility] LABCLIA [id number] [place] [address] [place] RBC (Bld) [#/Vol] 4.25 10*6/uL Normal 4.20-6.00 [facility] Comment on above: Order Comment: Speci men Type: BLOOD SPECIMENOrdering Facility: [facility] Address: [address] Performed By: #### 5 7021-8 ####[facility] LABCLIA [id number] [place] [address] [place] [facility] [place] WBC (Bld) [#/Vol] 16.24 10*3/uL High 3.70-11.00 [facility] Comment on above: Order Comment: Speci men Type: BLOOD SPECIMENOrdering Facility: [facility] Address: [address] Performed By: #### 5 7021-8 ####[facility] LABCLIA [id number] [address] [place] BLOOD TYPEon 023 ABO O Normal [facility] Comment on above: Order Comment: Speci men Type: BLOOD SPECIMENOrdering Facility: [facility] Address: [address] [place], [place] [address] Performed By: #### C ONABO ####[facility] BLOOD BANKCLIA [id number] [address] [place] Rh Nom (Bld) Positive Normal [facility] Comment on above: Order Comment: Speci men Type: BLOOD SPECIMENOrdering Facility: [facility] Address: [address] Performed By: #### C ONABO ####CC [facility] BLOOD BANKCLIA [id number] [place] [address] [place] CONSULTon 08-27-2022 CONSULT HNO ID: [id number] Author: Uzma Bates MD Service: Cardiovascular Medicine Author Type: Physician Type: Consults Filed: 08/27/2022 8:39 PM Note Text: [facility] CARDIOVASCULAR MEDICINE CONSULT NOTE (Template ID [id number]) Olaf Briones [id number] PRIMARY SERVICE: Urology CONSULTING SERVICE: Cardiovascular Medicine: [...] HLD, DM, nephrolithiasis who was transferred from [facility] w/ gross hematuria. Hematuria started on Thursday [...] . 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 Normal [facility] CT Urogramon 08-27-2022 CT Urogram Exam [...] 300 Contrast amount in ml's: 100 Normal [facility] Consultation Noteon 08-28-19 Consultation Note Patient: ARTHUR BRIONES Age: 77 years Sex: Male : 1945 Associated Diagnoses: None Author: Alexandre KOROMA MD Chief Complaint 08/26/2022 17:07 EDT pt to ER with c/o lower pelvic pain and blood clots in urine that started saturday. history of kidney stones. just had a stent placed last saturday at [facility]. sees dr ivory Thank for consultation on [...] BPH with urinary obstruction / SNOMED CT 4734569627 / Confirmed Kidney stone / SNOMED CT 086738162 / Confirmed Weak urinary stream / SNOMED CT 073277928 / Confirmed Microscopic hematuria / SNOMED CT 417824371 / Confirmed Diabetes / SNOMED CT 400229511 / Confirmed Hypertension / SNOMED CT 6692066795 / Confirmed Prostatitis / SNOMED CT 42468552 / Confirmed BPH without urinary obstruction / SNOMED CT 1051967379 / Confirmed Gross hematuria / SNOMED CT 477450609 / Confirmed Asymptomatic microscopic hematuria / SNOMED CT 5437994994 / Confirmed, Active Problems (10) Asymptomatic microscopic hematuria BPH with urinary obstruction BPH without urinary obstruction Diabetes Gross hematuria Hypertension Kidney stone Microscopic hematuria Prostatitis Weak urinary stream Histories Past Medical History: No active or resolved past medical history items have been selected or recorded. Family History: Hypertension Father Procedure history: Cystoscopy (80908223) on 08/18/2013 at 68 Years. Comments: 10/02/2018 16:11 Katie Rincon MA 11/08/200904/2006 TURP - Transurethral resection of prostate (761334863) in 2006 at 61 Years. Urodynamics (457680884) in 2006 at 61 Years. Transrectal biopsy of prostate using ultrasound (US) guidance (9739968967) in 2005 at 60 Years. ESWL - Extracorporeal shockwave lithotripsy for renal calculus (036739829) in 2000 at 55 Years. Comments: 10/02/2018 [...] Blood Press (more content not included)... Normal [facility] Comment on above: Result Comment: Elec tronically Signed By: Alexandre KOROMA MD.br\Date and Time Signed: 08/26/22 22:22 EDT ECG COMPLETEon 08-27-2022 ECG COMPLETE Ventricular Rate : 6 8 BPM Atrial Rate : 68 BPM P-R Interval : 186 ms QRS Duration : 102 ms Q-T Interval : 452 ms QTC Calculation(Bazett) : 480 ms Calculated P [place] : 7 degrees Calculated R [place] : -25 degrees Calculated T [place] : -33 degrees NORMAL SINUS RHYTHM MINIMAL VOLTAGE CRITERIA FOR LVH, MAY BE NORMAL VARIANT ( R in aVL ) CANNOT EXCLUDE ANTERIOR MYOCARDIAL INFARCTION , AGE UNDETERMINED ABNORMAL ECG Confirmed by CODY MANCIA MD (57) on 09/01/2022 3:04:36 PM NAME : OLAF BRIONES PID : [id number] : 1945 Gender : Male Race : Unknown ORD : [id number] Procedure Date : Aug 27 2022 12:56:05 [...] : , Acquired by : CAROL MALDONADO [facility] ED Clinical Summaryon 2022 ED Clinical Summary (Inserted Image. Amara ble to display) [address] [address] ED Clinical Summary Person Information Name: OLAF BRIONES/[facility] Age: 77 Years : 1945 Sex: Male Language: Dominican PCP: JAME BARRAZA MD Marital Status: Visit [...] 08/27/2022 04:32:32 08/27/2022 04:32:32 08/27/2022 04:32:32 ADDRESS: [address] [place] [address] [facility] DOC NOTES: MEDICAL INFORMATION: Prescriptions Given: Medications [...] infection; Other obstructive and reflux uropathy Normal [facility] ED Note-Physicianon 08-28-19 ED Note-Physician Patient was [...] and spoke with Dr. Johnson from the [facility] who agreed to the transfer the patient for further care. Normal [facility] Comment on above: Result Comment: Elec tronically Signed By: Tom Salas DO\.br\Date and Time Signed: 08/27/22 02:17 EDT ED Patient Education Noteon 08-27-2022 ED Patient Education Note Normal [facility] ED Patient Summaryon 023 ED Patient Summary (Inserted Image. Amara ble to display) [place] [id number] Patient Discharge Instructions Person Information Name: OLAF BRIONES Age: 77 Years Arrival Date: 08/26/2022 16:52:40 Discharge Diagnosis: 1:Urinary retention; 2:Gross hematuria; 3:Urinary tract infection; Other obstructive and reflux uropathy Primary Care Physician: CHRIS HAHN, JAME Bowers Provider Information Primary Provider: Keith Panchal M.D. [employer] [place] [employer] Worker:None The exam and treatment you received in the Emergency Department were for an urgent problem and are not intended as complete care. It is important that you follow up with a doctor, nurse practitioner, or physician?s surveyor's assistant for ongoing care. If your symptoms [...] opioids can be used to help relieve ccybwula-kc-uqbtne pain and are often prescribed following a [...] be struggling with addiction, tell your health manager managed care and ask for guidance or call [facility]?S Likeeds Helpline at 8-822-698-SYIT. c Source: [place] Department of Health and Human Services/Center for Disease Control & Prevention [place] H (more content not included)... Normal [facility] HISTORY PHYSICALon HISTORY PHYSICAL HNO ID: [id number] Author: David Andrews MD Service: Urology Author Type: Physician Type: HANDP Filed: 08/27/2022 9:26 PM Note Text: UROLOGY SERVICE HISTORY AND PHYSICAL Name: Olaf Briones Bed: H050 001/H050-01 Date: 08/27/2022 After Hours [facility] Pager: [phone] ASSESSMENT AND PLAN Olaf Briones is a 77 year old male with PMHx of HTN, HLD, DM, recent STEMI (s/p JUHI), nephrolithiasis, transferred from [facility] for gross hematuria. Currently with 18Fr 3-way [...] catheter stops flowing clamp CBI and page [phone] - Will continue to follow urine, if remains clear may be able to avoid OR this admission in setting of recent STEMI requiring PCI - Working to obtain cardiology records from [facility] Gt Encarnacion MD PGY-6, Urology Pager: [phone] After 1800 and on weekends please page [phone] for assistance. Active Problems Prior [place] POA: [...] (s/p JUHI), nephrolithiasis, transferred from [facility] for gross hematuria. He recently had primary revascularization of proximal RCA (3mm JUHI) placed at [facility] for STEMI on August 20. He was [...] He is seen by Dr. Ivory in [facility] for nephrolithiasis. He previously had ESWL (2000), [...] as need (more content not included)... Normal [facility] Insurance Correspondence Off iceon 08-27-2022 Insurance Correspondence Office [id number]#[id number]:127 Normal [facility] MEDICAL EMERon 08-27-2022 MEDICAL VANDANA HNO ID: [id number] Author: Francis Irizarry MD Service: Urology Author Type: Resident Type: Chg in Clinical Condition Filed: 08/27/2022 9:40 AM Note Text: Olaf Briones 08/27/2022 9:33 AM AMET for orthostatic hypotension Assessment: Olaf Briones is a 77 year old male with PMHx of HTN, HLD, DM, recent STEMI (s/p JUHI), nephrolithiasis, transferred from [facility] for gross hematuria. Currently with 18Fr 3-way [...] recent STEMI last week at [facility]. Unable to see ECHO data, EKG at [...] his is coming to visit. Stated his supervisor frame sample and pattern in [place] at [facility] is Dr. Zamora. Luis Angel on [...] to have bring records from [facility] to here. Will also request ECHO report from [facility] as well. - Continue CBI, titrate to light pink Discussed with chief, Dr. Encarnacion, and staff, Dr. Sharon Irizarry MD Pager [phone], after hours or weekends please page [phone] Urology Resident, PGY-[address] [facility] HNO ID: [id number] Author: Claudy William APRN.CNP Service: Critical Care Author Type: Nurse Practitioner [...] No past surgical history on file. Peripheral 08/27/22599 External Facility Short Right Forearm 20 Gauge (Active) Placement Date/Time: 08/27/22599 Line, Drain, Airway Placed by: (!) External Facility Type of Peripheral Line: Short Location: Right Insertion Site: Forearm Size: 20 Gauge [facility] Diagnostic Tests Reviewed: Most recent labs Primary Team Aware/Notified: Yes SIGNATURE: Claudy William APRN.PROCESSING SPECIALIST PATIENT NAME: Olaf Briones DATE: August 27, 2022 TIME: 9:11 AM Normal [facility] Magnesium SerPl-mCncon 08-27 Magnesium [Mass/Vol] 2.2 mg/dL Normal 1.7-2.3 [facility] Comment on above: Order Comment: Portia tay Type: BLOOD SPECIMENOrdering Facility: [facility] Address: [address] [place], [place] [address] Performed By: #### 2 4321-2, 08158-9, 2777-1 ####[facility] LABCLIA [id number] [facility] [id number] Monitor Recordon 08-27-2022 Monitor Record [id number]#1.00CD:127 Normal [facility] PT panel Coag (PPP)on 2022 INR Coag (PPP) [Relative time] 1.0 {INR} Normal 0.9-1.3 [facility] Comment on above: Order Comment: Portia tay Type: BLOOD SPECIMENOrdering Facility: [facility] Address: [address] [place], [place] [address] Result Comment: Mago min K Antagonist (VKA) Therapeutic Range: INR 2 to 3 (Target INR of 2.5) Note: For patients treated with VKA drugs, such as warfarin, the [place] [employer] 2012 Guideline recommends [...] GH, et al. Chest 2012, 141:7S-47S Daniel KENNEDY et al. [facility] 2017, 70: 252-289 Performed By: #### 3 4528-0, 02145-8 ####[facility] LABCLIA [id number] [address] [place] PT Coag (PPP) [Time] 10.4 s Normal 9.7-13.0 [facility] Comment on above: Order Comment: Speci men Type: BLOOD SPECIMENOrdering Facility: [facility] Address: [address] [place] [address] Performed By: #### 3 4528-0, 63211-1 ####[facility] LABCLIA [id number] [place] [address] [place] Phosphate SerPl-mCncon 08-27 Phosphate [Mass/Vol] 3.7 mg/dL Normal 2.7-4.8 [facility] Comment on above: Order Comment: Speci men Type: BLOOD SPECIMENOrdering Facility: [facility] Address: [address] [place] [address] Performed By: #### 2 4321-2, 41408-5, 2777-1 ####[facility] LABCLIA [id number] [place] [address] [place] RAD - Preliminary Cat Scan R eporton 08-27-2022 RAD - Preliminary Cat Scan Report [id number]#1.00CD:127 Normal [facility] TYPE + SCREENon 08-27-2022 ABO O Normal [facility] Comment on above: Order Comment: Speci men Type: BLOOD SPECIMENOrdering Facility: [facility] Address: [address] [place] [address] Performed By: #### T SCR ####CC [facility] BLOOD BANKCLIA [id number] [place] [address] [place] HISTORICAL AB SCR STATUS Negative Normal [facility] Comment on above: Order Comment: Speci men Type: BLOOD SPECIMENOrdering Facility: [facility] Address: [address] [place] [address] Performed By: #### T SCR ####CC [facility] BLOOD BANKCLIA [id number] [address] Rh Nom (Bld) Positive Normal [facility] Comment on above: Order Comment: Speci men Type: BLOOD SPECIMENOrdering Facility: [facility] Address: [address] [place] [address] Performed By: #### T SCR ####[facility] BLOOD BANKIA [id number] [address] TYPE AND SCREEN EXPIRATION 08/30/2022 23:59 Normal [facility] Comment on above: Order Comment: Speci men Type: BLOOD SPECIMENOrdering Facility: [facility] Address: [address] [place] [address] Performed By: #### T SCR ####[facility] BLOOD BANKIA [id number] [address] Transfer Documentson 023 Transfer Documents [id number]#1.00CD:127 Normal [facility] aPTT PPPon 08-27-2022 aPTT Coag (PPP) [Time] 28.7 s Normal 23.0-32.4 [facility] Comment on above: Order Comment: Speci men Type: BLOOD SPECIMENOrdering Facility: [facility] Address: [address] [place] [address] Performed By: #### 3 4528-0, 35092-2 ####[facility] LABCLIA [id number] [address] Auto Diffon 08-26-2022 Basophils/100 WBC (Bld) 0.5 % Normal 0.0-2.0 [facility] Comment on above: Order Comment: Order Added by Discern Expert. Performed By: #### 2 379375, 39964831, 2387311, 95790429, 4250252 #### [facility] [address] [place] [address] Basophils/Leukocytes Auto (Bld) [Pure # fraction] 0.1 E9/L Normal 0.0-0.2 [facility] Comment on above: Order Comment: Order Added by Discern Expert. Performed By: #### 2 689603, 98412565, 6766028, 85424939, 7780753 #### [facility] [address] [place] [address] Eosinophils/100 WBC (Bld) 0.9 % Normal 0.0-8.0 [facility] Comment on above: Order Comment: Order Added by Discern Expert. Performed By: #### 2 185195, 25111966, 0479516, 90010838, 4823051 #### [facility] [address] [place] [address] Eosinophils/Leukocytes Auto (Bld) [Pure # fraction] 0.1 E9/L Normal 0.0-0.5 [facility] Comment on above: Order Comment: Order Added by Discern Expert. Performed By: #### 2 399978, 62423982, 3743863, 73918039, 9405154 #### [facility] [address] [place] [address] Lymphocytes/100 WBC (Bld) 6.1 % Low 14.0-50.0 [facility] Comment on above: Order Comment: Order Added by Discern Expert. Performed By: #### 2 702871, 97512950, 9780189, 97597115, 3773454 #### [facility] [address] [place] [address] Lymphocytes/Leukocytes Auto (Bld) [Pure # fraction] 0.9 E9/L Low 1.0-4.0 [facility] Comment on above: Order Comment: Order Added by Discern Expert. Performed By: #### 2 765752, 74076791, 1920684, 29968548, 9363692 #### [facility] [address] [place] [address] Monocytes/100 WBC (Bld) 4.9 % Normal 4.0-14.0 [facility] Comment on above: Order Comment: Order Added by Discern Expert. Performed By: #### 2 760785, 48359110, 4508522, 19517043, 0602980 #### [facility] [address] [place] [address] Monocytes/Leukocytes Auto (Bld) [Pure # fraction] 0.8 E9/L Normal 0.2-1.0 [facility] Comment on above: Order Comment: Order Added by Discern Expert. Performed By: #### 2 487672, 15178959, 2314554, 16592534, 3782901 #### [facility] [address] [place] [address] Neutrophils/100 WBC (Bld) 87.6 % High 36.0-75.0 [facility] Comment on above: Order Comment: Order Added by Discern Expert. Performed By: #### 2 838214, 07072002, 1002149, 45713507, 6506620 #### [facility] [address] [place] [address] Neutrophils/Leukocytes Auto (Bld) [Pure # fraction] 13.5 E9/L High 2.0-7.5 [facility] Comment on above: Order Comment: Order Added by Discern Expert. Performed By: #### 2 761141, 05209324, 2540698, 21092253, 1820819 #### [facility] [address] [place] [address] BMPon 08-26-2022 Creatinine [Mass/Vol] 0.9 mg/dL Normal 0.5-1.3 [facility] Comment on above: Performed By: #### 2 497330, 93475950, 1420712, 75748112, 9616689 #### [facility] [address] [place] [address] Urea nitrogen [Mass/Vol] 18 mg/dL Normal 5-21 [facility] Comment on above: Performed By: #### 2 534318, 08875277, 1516406, 63043811, 7787215 #### [facility] [address] [place] [address] Urea nitrogen/Creatinine [Mass ratio] 20 No Units Normal 10-20 [facility] Comment on above: Performed By: #### 2 638994, 35796950, 9083897, 34978471, 1664857 #### [facility] [address] [place] [address] Anion gap [Moles/Vol] 13 mmol/L Normal 6-16 [facility] Comment on above: Performed By: #### 2 067829, 99047747, 9166433, 42968640, 5956034 #### [facility] [address] [place] [address] Calcium [Mass/Vol] 8.9 mg/dL Normal 8.9-11.1 [facility] Comment on above: Performed By: #### 2 124184, 22846731, 5744125, 36104636, 6991371 #### [facility] [address] [place] [address] Chloride [Moles/Vol] 105 mmol/L Normal 101-111 [facility] Comment on above: Performed By: #### 2 158922, 73968050, 6788773, 87706340, 4719331 #### [facility] [address] [place] [address] CO2 [Moles/Vol] 24 mmol/L Normal 21-31 [facility] Comment on above: Performed By: #### 2 033876, 23396284, 1710359, 51276512, 6840795 #### [facility] [address] [place] [address] Glucose [Mass/Vol] 154 mg/dL Normal 55-199 [facility] Comment on above: Result Comment: If t his glucose result represents a fasting glucose, interpretation should refer to the following reference range: 55-99 mg/dL Performed By: #### 2 469245, 47798099, 3133413, 44409443, 3183725 #### [facility] [address] [place] [address] Potassium [Moles/Vol] 4.0 mmol/L Normal 3.5-5.3 [facility] Comment on above: Performed By: #### 2 940325, 67968965, 7891763, 15107573, 2685238 #### [facility] [address] [place] [address] Sodium [Moles/Vol] 138 mmol/L Normal 135-145 [facility] Comment on above: Performed By: #### 2 334226, 75959888, 6037187, 39819559, 2949979 #### [facility] [address] [place] [address] CBC w/ Auto Diffon 3 Erythrocyte distribution width (RBC) [Ratio] 13.4 % Normal 10.9-14.2 [facility] Comment on above: Performed By: #### 2 560787, 76240687, 0619523, 07365542, 8471751 #### [facility] [address] [place] [address] Hematocrit (Bld) [Volume fraction] 40.9 % Normal 37.7-49.0 [facility] Comment on above: Performed By: #### 2 730411, 64382830, 9717130, 16521390, 7355201 #### [facility] [address] [place] [address] Hemoglobin (Bld) [Mass/Vol] 14.0 g/dL Normal 13.5-17.5 [facility] Comment on above: Performed By: #### 2 037311, 31427478, 9677275, 75883738, 4971533 #### [facility] [address] [place] [address] MCH (RBC) [Entitic mass] 31.3 pg Normal 27.0-34.0 [facility] Comment on above: Performed By: #### 2 110370, 70168518, 0435896, 60726579, 4409117 #### [facility] [address] [place] [address] MCHC (RBC) [Mass/Vol] 34.1 g/dL Normal 31.4-36.0 [facility] Comment on above: Performed By: #### 2 746605, 88863719, 0639521, 17593778, 1875518 #### [facility] [address] [place] [address] MCV (RBC) [Entitic vol] 91.9 fL Normal 80.0-100.0 [facility] Comment on above: Performed By: #### 2 088237, 23959887, 5250766, 38329443, 8860144 #### [facility] [address] [place] [address] Platelet mean volume (Bld) [Entitic vol] 9.6 fL Normal 6.4-10.8 [facility] Comment on above: Performed By: #### 2 297630, 89778808, 6094678, 11282885, 7544349 #### [facility] [address] [place], [place] [address] Platelets (Bld) [#/Vol] 194.0 E9/L Normal 150. 0-500. 0 [facility] Comment on above: Performed By: #### 2 375048, 02170398, 2456060, 98840482, 1719456 #### [facility] [address] [place], [place] [address] RBC (Bld) [#/Vol] 4.4 E12/L Normal 4.3-5.9 [facility] Comment on above: Performed By: #### 2 762917, 35528732, 4076278, 84970808, 7590707 #### [facility] [address] [place] [address] WBC corrected for nucl RBC Auto (Bld) [#/Vol] 15.5 E9/L High 4.0-11.0 [facility] Comment on above: Performed By: #### 2 823376, 90364348, 8886435, 90859545, 7840584 #### [facility] [address] [place] [address] CHEMISTRYOrdered By: SYSTEM SYSTEM on 08-26-2022 Anion gap [Moles/Vol] 13 mmol/L Normal 6 - 16 mEq/L [facility] Calcium [Mass/Vol] 8.9 mg/dL Normal 8.9 - 11. 1 mg/dL [facility] Chloride [Moles/Vol] 105 mmol/L Normal 101 - 1 11 mmol/L [facility] CO2 [Moles/Vol] 24 mmol/L Normal 21 - 31 mmol/L [facility] Creatinine [Mass/Vol] 0.9 mg/dL Normal 0.5 - 1.3 mg/dL [facility] GFR/1.73 sq M.predicted among non-blacks MDRD (S/P/Bld) [Vol rate/Area] 88 mL/min/1.73 m2 Normal >=59mL/min /1.73 m2 [facility] [place] S Glucose [Mass/Vol] 154 mg/dL Normal 55 - 199 mg/dL [facility] Potassium [Moles/Vol] 4.0 mmol/L Normal 3.5 - 5.3 mmol/L [facility] Sodium [Moles/Vol] 138 mmol/L Normal 135 - 145 mmol/L [facility] Urea nitrogen [Mass/Vol] 18 mg/dL Normal 5 - 21 mg/dL [facility] Urea nitrogen/Creatinine [Mass ratio] 20 mg/mg Normal 10 - 20 [facility] COAGULATIONOrdered By: Jordan Harp on 08-26-2022 aPTT Coag (PPP) [Time] 31.1 s Normal 25.1 - 36.5 second(s) [facility] Auto Coag INR Coag (PPP) [Relative time] 1.2 {INR} Invalid Interpretation Code [facility] PT Coag (PPP) [Time] 12.8 s High 9.4 - 1 2.5 second(s) [facility] Auto Coag Consent for Treatmenton Consent for Treatment [id number]#[id number]:127 Normal [facility] ED Note-Physicianon 08-27-19 ED Note-Physician Basic Information Time Seen: Abdulkadir Villatoro, Keith Arnold 08/26/2022 17:07 Chief Complaint pt to ER with c/o lower pelvic pain and blood clots in urine that started saturday. history of kidney stones. just had a stent placed last saturday at [facility]. sees dr ivroy History of Present Illness The patient is [...] and Complexity of Problems Differential Diagnosis: [] [facility] Data External documents reviewed: [] My [...] Alcohol Use, (more content not included)... Normal [facility] Comment on above: Result Comment: Elec tronically Signed By: Abdulkadir Villatoro, Keith Arnold\.br\Date and Time Signed: 08/26/22 19:20 EDT HEMATOLOGYOrdered [...] 87.6 % High 36.0 - 75.0 % [facility] HemeAuto[facility] Neutrophils/Leukocytes Auto (Bld) [Pure # fraction] 13.5 E9/L High 2.0 - 7.5 E9/L [facility] HemeAuto[facility] HEMATOLOGYOrdered By: Jani Hardy on 08-26-2022 Erythrocyte distribution width (RBC) [Ratio] 13.4 % Normal 10.9 - 14.2 % [facility] Hematocrit (Bld) [Volume fraction] 40.9 % Normal 37.7 - 49.0 % [facility] Hemoglobin (Bld) [Mass/Vol] 14.0 g/dL Normal 13.5 - 17.5 gm/dL [facility] MCH (RBC) [Entitic mass] 31.3 pg Normal 27.0 - 34.0 pg [facility] MCHC (RBC) [Mass/Vol] 34.1 g/dL Normal 31.4 - 36.0 gm/dL [facility] MCV (RBC) [Entitic vol] 91.9 fL Normal 80.0 - 100.0 fL [facility] Platelet mean volume (Bld) [Entitic vol] 9.6 fL Normal 6.4 - 10.8 fL [facility] Platelets (Bld) [#/Vol] 194.0 E9/L Normal 150. 0 - 500.0 E9/L [facility] RBC (Bld) [#/Vol] 4.4 E12/L Normal 4.3 - 5.9 E12/L [facility] WBC corrected for nucl RBC Auto (Bld) [#/Vol] 15.5 E9/L High 4.0 - 11.0 E9/L [facility] HemeAutoSS Laboratory - Microbiology an d Antimicrobial susceptibilityOrdered By: Jaye Bishop on 08-26-2022 Bacteria identified Cx Nom (U) No growth to date [facility] Monitor Recordon 08-26-2022 Monitor Record [id number]:127 Normal [facility] Monitor Record [id number]#[id number]:127 Normal [facility] PT & PTTon 08-26-2022 aPTT Coag (PPP) [Time] 31.1 second(s) Normal 25.1-36.5 [facility] Comment on above: Result Comment: Para meter [...] coagulation reagent and instrumentation as [facility]. Currently there are no coagulation studies available worldwide for children to 14 days, and no normal ranges. Heparin therapeutic range (represented by Anti-Factor Xa activity of 0.2 - 0.4 U/mL) corresponds to PTT of 56.6 - 109.0 sec. Performed By: #### 2 806307, 67436571, 5896469, 90223733, 1214198 #### [facility] [address] [place] [address] INR Coag (PPP) [Relative time] 1.2 {INR} Invalid Interpretation Code [facility] Comment on above: Result Comment: INR results are specifically intended to assess patients stabilized on long-term Anticoagulation therapy suggested INR?s ?Less Intensive Anticoagulation? 2.0 ? 3.0 Conventional Range 3.0 ? 4.5 Performed By: #### 2 829652, 97817736, 5195818, 28166889, 3337096 #### [facility] [address] [place] [address] PT Coag (PPP) [Time] 12.8 second(s) High 9.4-12.5 [facility] Comment on above: Result Comment: 15 d [...] coagulation reagent and instrumentation as [facility] Currently there are no coagulation studies available worldwide for children to 14 days, and no normal ranges. Performed By: #### 2 485123, 72953546, 6999235, 30593703, 0067646 #### [facility] [address] [place] [address] UA With Cult Reflexon 2022 Bacteria LM Ql (Urine sed) 1+ /HPF Abnormal Trace [facility] Comment on above: Order Comment: Urina ry Catheter Insertion triggered Urinalysis With Culture Reflex order by discern. Performed By: #### 2 806266, 96159231, 3278344, 65645664, 0521268 #### [facility] [address] [place] [address] Bilirubin Ql (U) Negative Normal Negative [facility] Comment on above: Order Comment: Urina ry Catheter Insertion triggered Urinalysis With Culture Reflex order by discern. Performed By: #### 2 217306, 70564183, 5950252, 81645154, 0372202 #### [facility] [address] [place] [address] Clarity (U) CLOUDY Abnormal Clear [facility] Comment on above: Order Comment: Urina ry Catheter Insertion triggered Urinalysis With Culture Reflex order by discern. Performed By: #### 2 016457, 33830751, 7199166, 33421666, 1601149 #### [facility] [address] [place] [address] Color (U) RED Abnormal Yellow [facility] Comment on above: Order Comment: Urina ry Catheter Insertion triggered Urinalysis With Culture Reflex order by discern. Performed By: #### 2 731880, 16077875, 2566760, 91521165, 5039196 #### [facility] [address] [place] [address] Epithelial cells.squamous LM.HPF (Urine sed) [#/Area] 0-2 Normal 0-2 [facility] Comment on above: Order Comment: Urina ry Catheter Insertion triggered Urinalysis With Culture Reflex order by discern. Performed By: #### 2 711122, 38765368, 6697301, 22306756, 1182352 #### [facility] [address] [place] [address] Glucose Test strip (U) [Mass/Vol] TRACE Abnormal Negative [facility] Comment on above: Order Comment: Urina ry Catheter Insertion triggered Urinalysis With Culture Reflex order by discern. Performed By: #### 2 309941, 77482385, 1922758, 36958411, 1754768 #### [facility] [address] [place] [address] Hemoglobin Ql (U) 3+ Abnormal Negative [facility] Comment on above: Order Comment: Urina ry Catheter Insertion triggered Urinalysis With Culture Reflex order by discern. Performed By: #### 2 954998, 56954159, 3265488, 22625708, 5134493 #### [facility] [address] [place] [address] Ketones (U) [Mass/Vol] 1+ Abnormal Negative [facility] Comment on above: Order Comment: Urina ry Catheter Insertion triggered Urinalysis With Culture Reflex order by discern. Performed By: #### 2 399380, 76987925, 1166540, 04744269, 2645732 #### [facility] [address] [place] [address] [place].plasma/[place]. RBC (Bld) [Mass ratio] >75 Abnormal 0-3 [facility] Comment on above: Order Comment: Urina ry Catheter Insertion triggered Urinalysis With Culture Reflex order by discern. Performed By: #### 2 246034, 71827593, 1897172, 46685851, 0993345 #### [facility] [address] [place] [address] Mucus Ql (Urine sed) 1+ Normal [facility] Comment on above: Order Comment: Urina ry Catheter Insertion triggered Urinalysis With Culture Reflex order by discern. Performed By: #### 2 203976, 28175939, 8482740, 52280761, 9352819 #### [facility] [address] [place] [address] Nitrite Ql (U) Positive Abnormal Negative [facility] Comment on above: Order Comment: Urina ry Catheter Insertion triggered Urinalysis With Culture Reflex order by discern. Performed By: #### 2 398784, 24556414, 6842671, 03851154, 5336247 #### [facility] [address] [place] [address] pH (U) 7.5 [pH] Invalid Interpretation Code 5.0-9.0 [facility] Comment on above: Order Comment: Urina ry Catheter Insertion triggered Urinalysis With Culture Reflex order by discern. Performed By: #### 2 351896, 90676599, 0617612, 25704942, 2701823 #### [facility] [address] [place] [address] Protein (U) [Mass/Vol] 3+ Abnormal Negative [facility] Comment on above: Order Comment: Urina ry Catheter Insertion triggered Urinalysis With Culture Reflex order by discern. Performed By: #### 2 765055, 69499297, 8454072, 30125432, 5344940 #### [facility] [address] [place] [address] Specific gravity (U) [Rel density] 1.015 Invalid Interpretation Code 1.005-1.03 0 [facility] Comment on above: Order Comment: Urina ry Catheter Insertion triggered Urinalysis With Culture Reflex order by discern. Performed By: #### 2 960264, 53517217, 9430438, 27628724, 9118012 #### [facility] [address] [place] [address] Type of Urine collection method Catheter Normal [facility] Comment on above: Order Comment: Urina ry Catheter Insertion triggered Urinalysis With Culture Reflex order by discern. Performed By: #### 2 932800, 26187908, 4350644, 24106708, 3679058 #### [facility] [address] [place] [address] Urobilinogen Qn (U) >=8.0 Abnormal 0.0-1.0 [facility] Comment on above: Order Comment: Urina ry Catheter Insertion triggered Urinalysis With Culture Reflex order by discern. Performed By: #### 2 108383, 98640487, 1473083, 85934498, 0241744 #### [facility] [address] [place] [address] WBC Auto Ql (U) 2+ Abnormal Negative [facility] Comment on above: Order Comment: Urina ry Catheter Insertion triggered Urinalysis With Culture Reflex order by discern. Performed By: #### 2 243317, 33416368, 5079749, 80379787, 7831182 #### [facility] [address] [place] [address] WBC LM.HPF (Urine sed) [#/Area] 16-25 Abnormal 0-5 [facility] Comment on above: Order Comment: Urina ry Catheter Insertion triggered Urinalysis With Culture Reflex order by discern. Performed By: #### 2 554138, 66032718, 9800130, 62556960, 8067012 #### [facility] [address] [place] [address] URINALYSISOrdered By: Jordan quintana on 08-26-2022 Bacteria [...] Interpretation Code Negative [facility] UA Auto SS [place].plasma/[place]. RBC (Bld) [Mass ratio] >75 /HPF Invalid Interpretation Code 0-3/HPF [facility] UA Auto SS Mucus Ql (Urine sed) 1+ (08/26/22 6:58 PM) Normal [facility] UA Auto SS Nitrite Ql (U) Positive *ABN* (08/26/22 6:58 PM) Invalid Interpretation Code Negative [facility]A Auto SS pH (U) 7.5 *NA* (08/26/22 6:58 PM) Invalid Interpretation Code 5.0 - 9.0 [facility] Auto SS Protein (U) [Mass/Vol] 3+ *ABN* (08/26/22 6:58 PM) Invalid Interpretation Code Negative [facility] UA Auto SS Specific gravity (U) [Rel density] 1.015 *NA* (08/26/22 6:58 PM) Invalid Interpretation Code 1.005 - 1.030 [facility]A Auto SS UA Spec Desc Catheter (08/26/22 6:58 PM) Normal [facility] UA Auto SS Urobilinogen Qn (U) {Belem'U}/dL Invalid Interpretation Code 0.0 - 1.0 EU/dL [facility] UA Auto SS WBC Auto Ql (U) 2+ *ABN* (08/26/22 6:58 PM) Invalid Interpretation Code Negative [facility] UA Auto SS WBC LM.HPF (Urine sed) [#/Area] 16-25 /HPF Invalid Interpretation Code 0-5/HPF [facility] UA Auto SS eGFRon 08-26-2022 GFR/1.73 sq M.predicted among non-blacks MDRD (S/P/Bld) [Vol rate/Area] 88 mL/min/1.73 m2 Normal >=59 [facility] Comment on above: Order Comment: Order added by Discern Expert. Result Comment: [employer] elio kidney disease could be indicated at eGFR's of less than 60 mL/min/1.73m2. Kidney failure is indicated at less than 15 mL/min/1.73m2. Performed By: #### 2 880403, 78172232, 5132889, 39173025, 6073660 #### [facility] [address] [place] [address] Basic Metabolic Panelon 07-0 Anion gap [Moles/Vol] 10.8 mmol/L Normal 6.0-15.0 [facility] Comment on above: Performed By: #### H S TROP #### [facility] [address] [place] [address] Calcium [Mass/Vol] 9.0 mg/dL Normal 8.6-10.3 [facility] Comment on above: Performed By: #### H S TROP #### [facility] [address] Chloride [Moles/Vol] 105 mmol/L Normal 98-107 [facility] Comment on above: Performed By: #### H S TROP #### [facility] [address] CO2 [Moles/Vol] 26.0 mmol/L Normal 21.0-31.0 [facility] Comment on above: Performed By: #### H S TROP #### [facility] [address] [place] [address] [place] Creatinine [Mass/Vol] 0.79 mg/dL Normal 0.70-1.30 [facility] Comment on above: Performed By: #### H S TROP #### [facility] [address] [place] [address] [place] Creatinine Clr Calc Pharmacy 74.[address] [facility] Comment on above: Result Comment: PERF ORMED BY: [place] [address] PATHOLOGIST [employer] DREW REAL M.D. Performed By: #### H S TROP #### [place] [address] [place] GFR/1.73 sq M.predicted MDRD (S/P/Bld) [Vol rate/Area] mL/min/{1.73_m2} Normal [facility] Comment on above: Performed By: #### H S TROP #### [place] [address] [place] Glucose [Mass/Vol] 133 mg/dL High 70-100 [facility] Comment on above: Result Comment: [facility] Glucose Reference Range is dependent on time and content of last meal. Glucose of more than 200 mg/dL in a nonstressed, ambulatory subject supports the diagnosis of Diabetes Mellitus. ADA recommended reference range Performed By: #### H S TROP #### [address] Potassium [Moles/Vol] 3.8 mmol/L Normal 3.5-5.1 [facility] Comment on above: Performed By: #### H S TROP #### [place] [address] [place] Sodium [Moles/Vol] 138 mmol/L Normal 136-145 [facility] Comment on above: Performed By: #### H S TROP #### [address] Urea nitrogen [Mass/Vol] 20 mg/dL Normal 7-[address] [facility] Comment on above: Performed By: #### H S TROP #### [place] [address] [place] Basophils Auto (Bld) [#/Vol] Ordered By: Steven Zamora on 08-22-2022 Basophils (Bld) [#/Vol] 0.0 10*3/uL 0.0-0.[address] [facility] Basophils/100 WBC Auto (Bld) Ordered By: Steven Zamora on 08-22-2022 Basophils/100 WBC (Bld) 0.3 % . [facility] Calcium [Mass/volume] in Ser um or PlasmaOrdered By: Steven Zamora on 07-05-2023 Calcium [Mass/Vol] 9.0 mg/dL 8.6-10.3 [facility] Carbon dioxide, total [Moles /volume] in Serum or PlasmaOrdered By: Steven Zamora on 08-22-2022 CO2 [Moles/Vol] 26.0 mmol/L 21.0-31.0 [facility] Chloride [Moles/volume] in S jamin or PlasmaOrdered By: Steven Zamora on 08-22-2022 Chloride [Moles/Vol] 105 mmol/L 98-107 [facility] Complete Blood Count Auto Di ffon 08-22-2022 Basophils (Bld) [#/Vol] 0.0 10*3/uL Normal 0.0-0.[address] [facility] Comment on above: Result Comment: PERF ORMED BY: [place] [address] PATHOLOGIST [employer] DREW REAL M.D. Performed By: #### H S TROP #### [address] Basophils/100 WBC (Bld) 0.3 % Normal . [facility] Comment on above: Performed By: #### H S TROP #### [address] Eosinophils (Bld) [#/Vol] 0.1 10*3/uL Normal 0.0-0.[address] [facility] Comment on above: Performed By: #### H S TROP #### [address] Eosinophils/100 WBC (Bld) 1.6 % Normal . [facility] Comment on above: Performed By: #### H S TROP #### [address] Erythrocyte distribution width (RBC) [Ratio] 13.7 % Normal 12.0-14.[address] [facility] Comment on above: Performed By: #### H S TROP #### [address] Hematocrit (Bld) [Volume fraction] 41.1 % Normal 38.8-50.[address] [facility] Comment on above: Performed By: #### H S TROP #### [facility] [address] Hemoglobin (Bld) [Mass/Vol] 13.9 g/dL Normal 13.0-17.[address] [facility] Comment on above: Performed By: #### H S TROP #### [facility] [address] Lymphocytes (Bld) [#/Vol] 1.4 10*3/uL Normal 1.00-4.[address] [facility] Comment on above: Performed By: #### H S TROP #### [address] Lymphocytes/100 WBC (Bld) 15.9 % Normal . [facility] Comment on above: Performed By: #### H S TROP #### [address] MCH (RBC) [Entitic mass] 31.5 pg Normal 27.5-35.[address] [facility] Comment on above: Performed By: #### H S TROP #### [address] MCV (RBC) [Entitic vol] 92.8 fL Normal 83.5-101 [facility] Comment on above: Performed By: #### H S TROP #### [address] Mean Corpuscular HGB Conc 33.9 g/dL Normal 32.5-35.[address] [facility] Comment on above: Performed By: #### H S TROP #### [place] [address] [place] Monocytes (Bld) [#/Vol] 0.9 10*3/uL High 0.0-0.[address] [facility] Comment on above: Performed By: #### H S TROP #### [address] Monocytes/100 WBC (Bld) 9.7 % Normal . [facility] Comment on above: Performed By: #### H S TROP #### [facility] [address] [place] [address] [place] Neutrophils (Bld) [#/Vol] 6.4 10*3/uL Normal 1.8-7.[address] [facility] Comment on above: Performed By: #### H S TROP #### [facility] [address] [place] [address] [place] Neutrophils/100 WBC (Bld) 72.5 % Normal . [facility] Comment on above: Performed By: #### H S TROP #### [facility] [address] [place] [address] [place] NRBC% 0.1 /100{WBC} Normal 0-0.[address] [facility] Comment on above: Performed By: #### H S TROP #### [address] Platelet mean volume (Bld) [Entitic vol] 9.6 fL Normal 6.6-10.[address] [facility] Comment on above: Performed By: #### H S TROP #### [place] [address] [place] Platelets (Bld) [#/Vol] 162 10*3/uL Normal 150-[address] [facility] Comment on above: Performed By: #### H S TROP #### [facility] [address] [place] [address] [place] RBC (Bld) [#/Vol] 4.43 10*6/uL Normal 3.90-5.60 [facility] Comment on above: Performed By: #### H S TROP #### [place] [address] [place] WBC (Bld) [#/Vol] 8.8 10*3/uL Normal 4.1-10.5 [facility] Comment on above: Performed By: #### H S TROP #### [place] [address] [place] Creatinine [Mass/volume] in Serum or PlasmaOrdered By: Steven Zamora on 08-22-2022 Creatinine [Mass/Vol] 0.79 mg/dL 0.70-1.30 [facility] ECG 12 lead ECGon 08-22-2022 ECG 12 lead ECG [facility] [place] [address] Electrocardiograph Report Signed Patient: Olaf Briones MR#: [id number] [birth year] : 1945 Acct:[id number] Age/Sex: 77 / M ADM Date: 08/20/22 Loc: Room: [address] [place] [address] Type: ADM IN Attending Dr: Steven Zamora [...] Signed By Joshua Atwood DO 08/22 [address] [facility] ECH echo transthoracicon ECH echo transthoracic [facility] [address] Echocardiogram Signed Patient: Olaf Briones MR#: [id number] 2 : 1945 Acct:[id number] Age/Sex: 77 / M ADM Date: 08/20/22 Loc: Room: [address] [place] [address] Type: ADM IN Attending Dr: Steven Zamora DO Ordering Provider: Steven Zamora DO Date of Service: 08/21/2206/10/499 ECH/ECH echo transthoracic: Inferolateral STEMI Copies to: Rojas Resendiz MD, FACC W Steve DO Noah BSA: 1.9 m2 BP: 116/65 mmHg HR: [...] [facility] 08/22/[address] [facility] Eosinophils Auto (Bld) [#/Vo l]Ordered By: Steven Zamora on 08-22-2022 Eosinophils (Bld) [#/Vol] 0.1 10*3/uL 0.0-0.[address] [facility] Eosinophils/100 WBC Auto (Bl d)Ordered By: Steven Zamora on 08-22-2022 Eosinophils/100 WBC (Bld) 1.6 % . [facility] Erythrocyte distribution wid th Auto (RBC) [Ratio]Ordered By: Steven Zamora on 08-22-2022 Erythrocyte distribution width (RBC) [Ratio] 13.7 % 12.0-14.[address] [facility] Glucose [Mass/volume] in Ser um or PlasmaOrdered By: Steven Zamora on 08-22-2022 Glucose [Mass/Vol] 133 mg/dL 70-100 [facility] Comment on above: ADA recommended refe rence rangeRandom Glucose Reference Range is dependent on time and content of last meal. Glucose of more than 200 mg/dL in a nonstressed, ambulatory subject supports the diagnosis of Diabetes Mellitus. Hematocrit Auto (Bld) [Volum e fraction]Ordered By: Steven Zamora on 08-22-2022 Hematocrit (Bld) [Volume fraction] 41.1 % 38.8-50.[address] [facility] Hemoglobin [Mass/volume] in BloodOrdered By: Steven Zamora on 08-22-2022 Hemoglobin (Bld) [Mass/Vol] 13.9 g/dL 13.0-17.[address] [facility] Leukocytes [#/volume] correc betty for nucleated erythrocytes in Blood by Automated counOrdered By: Steven Zamora on 08-22-2022 WBC corrected for nucl RBC Auto (Bld) [#/Vol] 8.8 10*3/uL 4.1-10.[address] [facility] Lymphocytes Auto (Bld) [#/Vo l]Ordered By: Steven Zamora on 08-22-2022 Lymphocytes (Bld) [#/Vol] 1.4 10*3/uL 1.00-4.[address] [facility] Lymphocytes/100 WBC Auto (Bl d)Ordered By: Steven Zamora on 08-22-2022 Lymphocytes/100 WBC (Bld) 15.9 % . [facility] MCH Auto (RBC) [Entitic mass ]Ordered By: Steven Zamora on 08-22-2022 MCH (RBC) [Entitic mass] 31.5 pg 27.5-35.[address] [facility] MCHC Auto (RBC) [Mass/Vol]Or dered By: Steven Zamora on 08-22-2022 MCHC (RBC) [Mass/Vol] 33.9 g/dL 32.5-35.6 [facility] MCV Auto (RBC) [Entitic vol] Ordered By: Steven Zamora on 08-22-2022 MCV (RBC) [Entitic vol] 92.8 fL 83.5-101 [facility] Monocytes Auto (Bld) [#/Vol] Ordered By: Steven Zamora on 08-22-2022 Monocytes (Bld) [#/Vol] 0.9 10*3/uL 0.0-0.[address] [facility] Monocytes/100 WBC Auto (Bld) Ordered By: Steven Zamora on 08-22-2022 Monocytes/100 WBC (Bld) 9.7 % . [facility] Neutrophils Auto (Bld) [#/Vo l]Ordered By: Steven Zamora on 08-22-2022 Neutrophils (Bld) [#/Vol] 6.4 10*3/uL 1.8-7.[address] [facility] Neutrophils/100 WBC Auto (Bl d)Ordered By: Steven Zamora on 08-22-2022 Neutrophils/100 WBC (Bld) 72.5 % . [facility] No Panel InformationOrdered By: Steven Zamora on 08-22-2022 Estimated GFR (CKD-EPI) > 60.0 mL/Min [facility] Pharmacy Creatinine Clearance (Chem 74.[address] [facility] No Panel Informationon 08-22 0.0\S\0.0 Normal 0.0-0.2 -[facility] Heart-Sandu eduardo 250 DO Work Phone: [phone] Comment on above: PERFORMED BY:[facility] [place], [place] [id number] MEDICAL DIRECTORRDEW REAL M.D. 0.1\S\0.1 Normal 0-0.5 [facility]-Sandu eduardo 250 DO Work Phone: [phone] 0.9\S\0.9 above high threshold 0.0-0.8 -[facility]-Sandu eduardo 250 DO Work Phone: [phone] 1.4\S\1.4 Normal 1.00-4.8 -[facility]-Sandu eduardo 250 DO Work Phone: [phone] 6.4\S\6.4 Normal 1.8-7.7 -[facility]-Sandu eduardo 250 DO Work Phone: [phone] 0.3\S\0.3 Normal . [facility]-Sandu eduardo 250 DO Work Phone: [phone] 1.6\S\1.6 Normal . [facility] eduardo 250 DO Work Phone: [phone] 9.7\S\9.7 Normal . [facility]-Sandu eduardo 250 DO Work Phone: [phone] 15.9\S\15.9 Normal . [facility]u eduardo 250 DO Work Phone: [phone] 72.5\S\72.5 Normal . [facility]u eduardo 250 DO Work Phone: [phone] 9.6\S\9.6 Normal 6.6-10.1 -[facility]-Sandu eduardo 250 DO Work Phone: [phone] 162\S\162 Normal 150-450 -[facility]-Sandu eduardo 250 DO Work Phone: [phone] 13.7\S\13.7 Normal 12.0-14.8 [facility]-Sandu eduardo 250 DO Work Phone: [phone] 33.9\S\33.9 Normal 32.5-35.6 [facility]-Sandu eduardo 250 DO Work Phone: [phone] 31.5\S\31.5 Normal 27.5-35.2 [facility]-[place] eduardo 250 DO Work Phone: [phone] 92.8\S\92.8 Normal 83.5-101 [facility]-[place] eduardo 250 DO Work Phone: [phone] 41.1\S\41.1 Normal 38.8-50.0 [facility]-[place] eduardo 250 DO Work Phone: [phone] 13.9\S\13.9 Normal 13.0-17.0 [facility] edurado 250 DO Work Phone: [phone] 4.43\S\4.43 Normal 3.90-5.60 [facility]Su eduardo 250 DO Work Phone: [phone] 8.8\S\8.8 Normal 4.1-10.5 [facility]-[place] eduardo 250 DO Work Phone: [phone] > 60.0 Normal [facility] eduardo 250 DO Work Phone: [phone] 10.8\S\10.8 Normal 6.0-15.0 [facility] eduardo 250 DO Work Phone: [phone] 74.81\S\74.81 Normal [facility]-[place] eduardo 250 DO Work Phone: [phone] Comment on above: PERFORMED BY:[place] [address] [address] [place], [place] [phone] MEDICAL DIRECTORDREW REAL M.D. 9.0\S\9.0 Normal 8.6-10.3 [facility] eduardo 250 DO Work Phone: [phone] 26.0\S\26.0 Normal 21.0-31.0 -[facility] [employer]force Insightwalter eduardo 250 DO Work Phone: 105\S\105 Normal 98-107 [facility] [employer] Insightwalter eduardo 250 DO Work Phone: 3.8\S\3.8 Normal 3.5-5.1 -[facility] [employer] Insightwalter eduardo 250 DO Work Phone: 138\S\138 Normal 136-145 -[facility] [employer] Insightwalter eduardo 250 DO Work Phone: 0.79\S\0.79 Normal 0.70-1.30 [facility] TenlegsCamacho eduardo 250 DO Work Phone: 20\S\20 Normal 7-25 -[facility] TenlegsCamacho eduardo 250 DO Work Phone: 133\S\133 above high threshold 70-100 -[facility] TenlegsCamacho eduardo 250 DO Work Phone: Comment on [...] RBC Auto Ql (Bld) 0.1 /100{WBC} 0-0.[address] [facility] Platelet mean volume Auto (B ld) [Entitic vol]Ordered By: Steven Zamora on 08-22-2022 Platelet mean volume (Bld) [Entitic vol] 9.6 fL 6.6-10.[address] [facility] Platelets Auto (Bld) [#/Vol] Ordered By: Steven Zamora on 08-22-2022 Platelets (Bld) [#/Vol] 162 10*3/uL 150-[address] [facility] Potassium [Moles/volume] in Serum or PlasmaOrdered By: Steven Zamora on 08-22-2022 Potassium [Moles/Vol] 3.8 mmol/L 3.5-5.1 [facility] RBC Auto (Bld) [#/Vol]Ordere d By: Steven Zamora on 08-22-2022 RBC (Bld) [#/Vol] 4.43 10*6/uL 3.90-5.60 [facility] Serum or plasma anion gap de terminationOrdered By: Steven Zamora on 08-22-2022 Anion gap [Moles/Vol] 10.8 mmol/L 6.0-15.0 [facility] Sodium [Moles/volume] in Ser um or PlasmaOrdered By: Steven Zamora on 08-22-2022 Sodium [Moles/Vol] 138 mmol/L 136-145 [facility] Urea nitrogen [Mass/volume] in Serum or PlasmaOrdered By: Steven Zamora on 08-22-2022 Urea nitrogen [Mass/Vol] 20 mg/dL 7-[address] [facility] WBC Auto (Bld) [#/Vol]Ordere d By: Steven Zamora on 08-22-2022 WBC (Bld) [#/Vol] 8.8 10*3/uL 4.1-10.5 [facility] Basic Metabolic Panelon 070 Anion gap [Moles/Vol] 11.7 mmol/L Normal 6.0-15.0 [facility] Comment on above: Performed By: #### H S TROP #### [facility] [address] [place] [address] [place] Calcium [Mass/Vol] 9.4 mg/dL Normal 8.6-10.3 [facility] Comment on above: Performed By: #### H S TROP #### [facility] [address] [place] [address] [place] Chloride [Moles/Vol] 103 mmol/L Normal 98-107 [facility] Comment on above: Performed By: #### H S TROP #### [facility] [address] [place] [address] [place] CO2 [Moles/Vol] 27.1 mmol/L Normal 21.0-31.0 [facility] Comment on above: Performed By: #### H S TROP #### [facility] [address] [place] [address] [place] Creatinine [Mass/Vol] 0.71 mg/dL Normal 0.70-1.30 [facility] Comment on above: Performed By: #### H S TROP #### [facility] [address] [place] [address] [place] Creatinine Clr Calc Pharmacy 74.81 [facility] Comment on above: Performed By: #### H S TROP #### [facility] [address] [place] [address] [place] GFR/1.73 sq M.predicted MDRD (S/P/Bld) [Vol rate/Area] mL/min/{1.73_m2} [facility] Comment on above: Performed By: #### H S TROP #### [place] [address] [place] Glucose [Mass/Vol] 162 mg/dL High 70-100 [facility] Comment on above: Result Comment: [facility] Glucose Reference Range is dependent on time and content of last meal. Glucose of more than 200 mg/dL in a nonstressed, ambulatory subject supports the diagnosis of Diabetes Mellitus. ADA recommended reference range Performed By: #### H S TROP #### [place] [address] [place] Potassium [Moles/Vol] 3.8 mmol/L Normal 3.5-5.1 [facility] Comment on above: Performed By: #### H S TROP #### [place] [address] [place] Sodium [Moles/Vol] 138 mmol/L Normal 136-145 [facility] Comment on above: Performed By: #### H S TROP #### [place] [address] [place] Urea nitrogen [Mass/Vol] 12 mg/dL Normal 7-[address] [facility] Comment on above: Performed By: #### H S TROP #### [facility] [address] [place] [address] [place] Cholesterol [Mass/volume] in Serum or PlasmaOrdered By: Steven Zamora on 08-21-2022 Cholesterol [Mass/Vol] 132 mg/dL 140-200 [facility] Comment on above: Chol less than 200 m g/dl low riskChol 201-239 mg/dl borderline riskChol 240 mg/dl and greater high risk Cholesterol in LDL Calc [Mas s/Vol]Ordered By: Setven Zamora on 08-21-2022 Cholesterol in LDL [Mass/Vol] 62 mg/dL 0-[address] [facility] Comment on above: LDL ATP III CLASSIFI CATIONLDL less than 100 mg/dL OptimalLDL 100-129 mg/dL Near or above optimalLDL 130-159 mg/dL Borderline highLDL 160-189 mg/dL HighLDL greater than 189 mg/dL Very high Cholesterol in VLDL Calc [Ma ss/Vol]Ordered By: Steven Zamora on 08-21-2022 Cholesterol in VLDL [Mass/Vol] 24 mg/dL [facility] Complete Blood Count Auto Di ffon 08-21-2022 Basophils (Bld) [#/Vol] 0.0 10*3/uL Normal 0.0-0.[address] [facility] Comment on above: Result Comment: PERF ORMED BY: [place] [address] PATHOLOGIST [employer] FORMS BUILDER DREW REAL M.D. Performed By: #### H S TROP #### [facility] [address] [place] [address] [place] Basophils/100 WBC (Bld) 0.2 % Normal . [facility] Comment on above: Performed By: #### H S TROP #### [facility] [address] [place] [address] [place] Eosinophils (Bld) [#/Vol] 0.0 10*3/uL Normal 0.0-0.[address] [facility] Comment on above: Performed By: #### H S TROP #### [facility] [address] [place] [address] [place] Eosinophils/100 WBC (Bld) 0.1 % Normal . [facility] Comment on above: Performed By: #### H S TROP #### [address] Erythrocyte distribution width (RBC) [Ratio] 13.5 % Normal 12.0-14.[address] [facility] Comment on above: Performed By: #### H S TROP #### [address] Hematocrit (Bld) [Volume fraction] 42.7 % Normal 38.8-50.[address] [facility] Comment on above: Performed By: #### H S TROP #### [address] Hemoglobin (Bld) [Mass/Vol] 14.6 g/dL Normal 13.0-17.[address] [facility] Comment on above: Performed By: #### H S TROP #### [address] Lymphocytes (Bld) [#/Vol] 1.1 10*3/uL Normal 1.00-4.[address] [facility] Comment on above: Performed By: #### H S TROP #### [address] Lymphocytes/100 WBC (Bld) 8.2 % Normal . [facility] Comment on above: Performed By: #### H S TROP #### [address] MCH (RBC) [Entitic mass] 31.4 pg Normal 27.5-35.[address] [facility] Comment on above: Performed By: #### H S TROP #### [address] MCV (RBC) [Entitic vol] 91.6 fL Normal 83.5-101 [facility] Comment on above: Performed By: #### H S TROP #### [address] Mean Corpuscular HGB Conc 34.3 g/dL Normal 32.5-35.[address] [facility] Comment on above: Performed By: #### H S TROP #### [address] Monocytes (Bld) [#/Vol] 0.8 10*3/uL Normal 0.0-0.[address] [facility] Comment on above: Performed By: #### H S TROP #### [facility] [address] Monocytes/100 WBC (Bld) 6.1 % Normal . [facility] Comment on above: Performed By: #### H S TROP #### [facility] [address] Neutrophils (Bld) [#/Vol] 11.7 10*3/uL High 1.8-7.[address] [facility] Comment on above: Performed By: #### H S TROP #### [address] Neutrophils/100 WBC (Bld) 85.4 % Normal . [facility] Comment on above: Performed By: #### H S TROP #### [facility] [address] [place] [address] NRBC% 0.0 /100{WBC} Normal 0-0.[address] [facility] Comment on above: Performed By: #### H S TROP #### [facility] [address] [place] [address] Platelet mean volume (Bld) [Entitic vol] 9.5 fL Normal 6.6-10.[address] [facility] Comment on above: Performed By: #### H S TROP #### [facility] [address] [place] [address] [place] Platelets (Bld) [#/Vol] 171 10*3/uL Normal 150-[address] [facility] Comment on above: Performed By: #### H S TROP #### [facility] [address] [place] [address] [place] RBC (Bld) [#/Vol] 4.66 10*6/uL Normal 3.90-5.60 [facility] Comment on above: Performed By: #### H S TROP #### [facility] [address] [place] [address] WBC (Bld) [#/Vol] 13.6 10*3/uL High 4.1-10.5 [facility] Comment on above: Performed By: #### H S TROP #### [address] ECG 12 lead ECGon 08-21-2022 ECG 12 lead ECG [facility] Main [place] [address] [place] [address] Electrocardiograph Report Signed Patient: Olaf Briones MR#: [id number] 2 : 1945 Acct:[id number] Age/Sex: 77 / M ADM Date: 08/20/22 Loc: Room: [address] [place] [address] Type: REG SDC Attending Dr: Steven Zamora [...] Signed By Joshua Atwood DO 08/21 0917 [facility] Glucose Glucometer (BldC) [M ass/Vol]Ordered By: Steven Zamora on 08-21-2022 Glucose [Mass/Vol] 121 mg/dL [facility] Comment on above: Random Glucose Refer ence Range is dependent on time and content of last meal. Glucose of more than 200 mg/dL in a nonstressed, ambulatory subject supports the diagnosis of Diabetes Mellitus. Glucose Poct Glucometerson 0 08-21-2022 Commemt1 Glu2: Cleaned Meter [facility] Comment on above: Result Comment: PERF ORMED BY: [place] [address] PATHOLOGIST MOLD FORMS BUILDER DREW REAL M.D. Performed By: #### H S TROP #### [address] Glucose [Mass/Vol] 121 mg/dL Normal [facility] Comment on above: Result Comment: [place] [facility] Glucose Reference Range is dependent on time and content of last meal. Glucose of more than 200 mg/dL in a nonstressed, ambulatory subject supports the diagnosis of Diabetes Mellitus. Performed By: #### H S TROP #### [address] Commemt1 Glu2: Cleaned Meter Normal [facility] Comment on above: Result Comment: PERF ORMED BY: [place] [address] PATHOLOGIST MOLD FORMS BUILDER DREW REAL M.D. Performed By: #### H S TROP #### [address] Glucose [Mass/Vol] 137 mg/dL Normal [facility] Comment on above: Result Comment: [place] [facility] Glucose Reference Range is dependent on time and content of last meal. Glucose of more than 200 mg/dL in a nonstressed, ambulatory subject supports the diagnosis of Diabetes Mellitus. Performed By: #### H S TROP #### [address] Laboratory - Chemistry and C hemistry - challengeon 08-21-2022 Cholesterol [Mass/Vol] 132\S\132 below low threshold 140-200 -[facility] eduardo 250 DO Work Phone: Comment on above: Chol less than 200 m g/dl low risk Chol 201-239 mg/dl borderline risk Chol 240 mg/dl and greater high risk Cholesterol in LDL [Mass/Vol] 62\S\62 Normal 0-100 [facility] eduardo 250 DO Work Phone: Comment on above: LDL ATP III CLASSIFI CATION LDL less than 100 mg/dL Optimal LDL 100-129 mg/dL Near or above optimal LDL 130-159 mg/dL Borderline high LDL 160-189 mg/dL High LDL greater than 189 mg/dL Very high Lipid Panelon 08-21-2022 Cholesterol [Mass/Vol] 132 mg/dL Low 140-200 [facility] Comment on above: Result Comment: Chol less than 200 mg/dl low risk Chol 201-239 mg/dl borderline risk Chol 240 mg/dl and greater high risk Performed By: #### H S TROP #### [facility] [address] [place] [id number] [place] Cholesterol in HDL [Mass/Vol] 45 mg/dL Normal 23-[address] [facility] Comment on above: Result Comment: HDL CHOL ATP-III CLASSIFICATION Cardiovascular Risk HDL > or equal to 60 mg/dL LOW HDL < 40 mg/dL HIGH Performed By: #### H S TROP #### [facility] [address] [place] [address] [place] Cholesterol.total/Reny sterol in HDL [Mass ratio] 2.9 {ratio} Normal <5.[address] [facility] Comment on above: Result Comment: PERF ORMED BY: [place] [address] PATHOLOGIST [employer]MS BUILDER DREW REAL M.D. Performed By: #### H S TROP #### [facility] [address] LDL Cholesterol,Calculated 62 mg/dL Normal 0-[address] [facility] Comment on above: Result Comment: LDL ATP III CLASSIFICATION LDL less than 100 mg/dL Optimal LDL 100-129 mg/dL Near or above optimal LDL 130-159 mg/dL Borderline high LDL 160-189 mg/dL High LDL greater than 189 mg/dL Very high Performed By: #### H S TROP #### [facility] [address] [place] [id number] [place] Triglyceride w/Reflex 124 mg/dL Normal 0-149 [facility] Comment on above: Result Comment: TRIG ATP III CLASSIFICATION TRIG less than 150 mg/dL Normal TRIG 150-199 mg/dL Borderline high TRIG 200-500 mg/dL High TRIG greater than 500 mg/dL Very high Standard traceable to the Center for Disease Conrtrol and Prevention (CDC) test method. Performed By: #### H S TROP #### [facility] [address] VLDL CHOLESTEROL 24 mg/dL Normal [facility] Comment on above: Performed By: #### H S TROP #### [facility] [address] No Panel InformationOrdered By: Steven Zamora on 08-21-2022 Bedside Glucose Comment Glu2: cleaned meter [facility] No Panel Informationon 08-21 Glu2: Cleaned Meter Normal -No rth [place] [facility]-Sandu eduardo 250 DO Work Phone: Comment on above: PERFORMED BY:[place] [address] [place] [place], [place] [id number] MEDICAL DIRECTORDREW REAL M.D. 121\S\121 Normal [facility] 250 DO Work Phone: Comment on above: Random Glucose Refer ence Range is dependent on time and content of last meal. Glucose of more than 200 mg/dL in a nonstressed, ambulatory subject supports the diagnosis of Diabetes Mellitus. Glu2: Cleaned Meter Normal -No rth [place] [facility]Su eduardo 250 DO Work Phone: Comment on above: PERFORMED BY:[place] [address] [place], [place] [id number] MEDICAL DIRECTORDREW REAL M.D. 137\S\137 Normal [facility] eduardo 250 DO Work Phone: Comment on above: Random Glucose Refer ence Range is dependent on time and content of last meal. Glucose of more than 200 mg/dL in a nonstressed, ambulatory subject supports the diagnosis of Diabetes Mellitus. 0.0\S\0.0 Normal 0-0.5 [facility] eduardo 250 DO Work Phone: Comment on above: PERFORMED BY:[place] [address] [place], [place] [phone] MEDICAL DIRECTORDREW REAL M.D. 0.8\S\0.8 Normal 0.0-0.8 [facility] eduardo 250 DO Work Phone: [phone] 1.1\S\1.1 Normal 1.00-4.8 [facility] eduardo 250 DO Work Phone: [phone] 11.7\S\11.7 Normal 6.0-15.0 [facility] eduardo 250 DO Work Phone: [phone] 0.2\S\0.2 Normal . [facility] eduardo 250 DO Work Phone: [phone] 0.1\S\0.1 Normal . [facility] eduardo 250 DO Work Phone: [phone] 6.1\S\6.1 Normal . [facility] eduardo 250 DO Work Phone: [phone] 8.2\S\8.2 Normal . [facility] eduardo 250 DO Work Phone: [phone] 85.4\S\85.4 Normal . [facility] eduardo 250 DO Work Phone: [phone] 9.5\S\9.5 Normal 6.6-10.1 [facility] eduardo 250 DO Work Phone: [phone] 171\S\171 Normal 150-450 [facility] eduardo 250 DO Work Phone: [phone] 13.5\S\13.5 Normal 12.0-14.8 [facility] eduardo 250 DO Work Phone: [phone] 34.3\S\34.3 Normal 32.5-35.6 [facility] eduardo 250 DO Work Phone: [phone] 31.4\S\31.4 Normal 27.5-35.2 [facility] eduardo 250 DO Work Phone: [phone] 91.6\S\91.6 Normal 83.5-101 [facility] eduardo 250 DO Work Phone: [phone] 42.7\S\42.7 Normal 38.8-50.0 [facility] eduardo 250 DO Work Phone: [phone] 14.6\S\14.6 Normal 13.0-17.0 [facility] eduardo 250 DO Work Phone: [phone] 4.66\S\4.66 Normal 3.90-5.60 [facility]-Sand[facility] eduardo 250 DO Work Phone: [phone] 13.6\S\13.6 above high threshold 4.1-10.5 -[facility] eduardo 250 DO Work Phone: > 60.0 Normal [facility] eduardo 250 DO Work Phone: [phone] 74.81\S\74.81 Normal [facility] eduardo 250 DO Work Phone: [phone] 9.4\S\9.4 Normal 8.6-10.3 [facility] eduardo 250 DO Work Phone: 27.1\S\27.1 Normal 21.0-31.0 [facility]-Cam[facility] eduardo 250 DO Work Phone: 103\S\103 Normal 98-107 [facility] eduardo 250 DO Work Phone: [phone] 3.8\S\3.8 Normal 3.5-5.1 [facility] eduardo 250 DO Work Phone: [phone] 138\S\138 Normal 136-145 [facility] eduardo 250 DO Work Phone: [phone] 0.71\S\0.71 Normal 0.70-1.30 [facility] eduardo 250 DO Work Phone: [phone] 12\S\12 Normal 7-25 [facility]-Sandu eduardo 250 DO Work Phone: 162\S\162 above high threshold 70-100 [facility] clark flo.do DO Work Phone: Comment on above: Random Glucose Refer ence Range is dependent on time and content of last meal. Glucose of more than 200 mg/dL in a nonstressed, ambulatory subject supports the diagnosis of Diabetes Mellitus. ADA recommended reference range 2.9\S\2.9 Normal <5.0 [facility] TenlegsCamacho Powtoon DO Work Phone: Comment on above: PERFORMED BY:[place] [address] [place] [id number] MEDICAL DIRECTORDREW REAL M.D. 24\S\24 Normal [facility] eduardo flo.do DO Work Phone: 124\S\124 Normal 0-149 [facility] [employer] DO Work Phone: Comment on above: TRIG ATP III CLASSIF ICATION TRIG less than 150 mg/dL Normal TRIG 150-199 mg/dL Borderline high TRIG 200-500 mg/dL High TRIG greater than 500 mg/dL Very high Standard traceable to the Center for Disease Conrtrol and Prevention (CDC) test method. 45\S\45 Normal 23-92 [facility] TenlegsCamacho clark flo.do DO Work Phone: Comment on above: HDL CHOL ATP-III CLA SSIFICATION Cardiovascular Risk HDL > or equal to 60 mg/dL LOW HDL < 40 mg/dL HIGH 37270.9\S\61057.9 Critically high 0.0-20.0 [facility] TenlegsCamacho Powtoon DO Work Phone: Comment on above: Critical Result : Ca lled to and read back by: MARC BUSTILLOS at: 08/21/2022 06:30:29 by:[id number] BY:[place] [address] [place] [id number] MEDICAL DIRECTORDREW REAL M.D. 00765.9\S\00691.9 Critically high 0.0-20.0 [facility] eduardo 250 DO Work Phone: Comment on above: Critical Result : Ca lled to and read back by: RIDGE WATERS at: 08/21/2022 04:23:36 by:[id number] BY:[place] [address] [place] [place], [place] [id number] MEDICAL DIRECTORDREW REAL M.D. 22253.3\S\36980.3 Critically high 0.0-20.0 [facility] 250 DO Work Phone: Comment on above: Critical Result : Ca lled to and read back by: SALLY BUSTILLOS at: 08/21/2022 00:52:26 by:[id number] BY:[place] [address] [place], [place] [id number] MEDICAL DIRECTORDREW REAL M.D. Serum or plasma high density lipoprotein (HDL) cholesterol measurementOrdered By: Steven Zamora on 08-21-2022 Cholesterol in HDL [Mass/Vol] 45 mg/dL 23-[address] [facility] Comment on above: HDL CHOL ATP-III CLA SSIFICATION Cardiovascular RiskHDL > or equal to 60 mg/dL LOWHDL < 40 mg/dL HIGH Serum or plasma total choles terol/high density lipoprotein (HDL) cholesterol mass ratOrdered By: Steven Zamora on 08-21-2022 Cholesterol.total/Reny sterol in HDL [Mass ratio] 2.9 {ratio} <5.[address] [facility] Triglyceride [Mass/volume] i n Serum or PlasmaOrdered By: Steven Zamora on 08-21-2022 Triglyceride [Mass/Vol] 124 mg/dL 0-149 [facility] Comment on above: TRIG ATP III CLASSIF ICATIONTRIG less than 150 mg/dL NormalTRIG 150-199 mg/dL Borderline highTRIG 200-500 mg/dL High TRIG greater than 500 mg/dL Very highStandard traceable to the Center for Disease Conrtrol and Prevention (CDC) test method. Troponin I High Sensitivityo n 08-21-2022 Troponin I High Sensitivity 30376.9 pg/mL Off scale high 0.0-20.[address] [facility] Comment on above: Result Comment: Crit ical Result : Called to and read back by: MARC BUSTILLOS at: 08/21/2022 06:30:29 by:[id number] PERFORMED BY: [place] [address] PATHOLOGIST MOLD FORMS BUILDER DREW REAL M.D. Performed By: #### H S TROP #### [facility] [address] [place] [address] Troponin I High Sensitivity 88183.9 pg/mL Off scale high 0.0-20.[address] [facility] Comment on above: Result Comment: Crit ical Result : Called to and read back by: RIDGE WATERS at: 08/21/2022 04:23:36 by:[id number] PERFORMED BY: [place] [address] PATHOLOGIST MOLD FORMS BUILDER DREW REAL M.D. Performed By: #### H S TROP #### [address] Troponin I High Sensitivity 65807.3 pg/mL Off scale high 0.0-20.[address] [facility] Comment on above: Result Comment: Crit ical Result : Called to and read back by: SALLY BUSTILLOS at: 08/21/2022 00:52:26 by:[id number] PERFORMED BY: [place] [address] PATHOLOGIST MOLD FORMS BUILDER DREW REAL M.D. Performed By: #### H S TROP #### [facility] [address] [place] [address] Troponin I.cardiac [Mass/vol ume] in Serum or Plasma by Detection limit <= 0.01 ng/Ordered By: Steven Zamora on 08-21-2022 Troponin I.cardiac DL <= 0.01 ng/mL [Mass/Vol] 66016.9 pg/mL 0.0-20.[address] [facility] Comment on above: Critical Result : Ca lled to and read back by: MARC BUSTILLOS at: 08/21/2022 06:30:29 by:[id number] Activated partial thrombopla stin time (aPTT) in platelet poor plasma by coagulation aOrdered By: Cirilo Wise on 08-20-2022 aPTT Coag (PPP) [Time] 25.1 s 25.1-36.5 [facility] B-Type Natriuretic Peptideon 08-20-2022 Natriuretic peptide B (Bld) [Mass/Vol] 24.0 pg/mL Normal 5-[address] [facility] Comment on above: Result Comment: PERF ORMED BY: [place] [address] PATHOLOGIST M[employer] FORMS BUILDER DREW REAL M.D. Performed By: #### B METAL PUNCH PRESS OPERATOR, CK, CBC, HS TROP, BMP, PT, PTT #### [address] Basic Metabolic Panelon Anion gap [Moles/Vol] 14.1 mmol/L Normal 6.0-15.0 [facility] Comment on above: Performed By: #### B METAL PUNCH PRESS OPERATOR, CK, CBC, HS TROP, BMP, PT, PTT #### [address] Calcium [Mass/Vol] 9.4 mg/dL Normal 8.6-10.3 [facility] Comment on above: Performed By: #### B METAL PUNCH PRESS OPERATOR, CK, CBC, HS TROP, BMP, PT, PTT #### [address] Chloride [Moles/Vol] 105 mmol/L Normal 98-107 [facility] Comment on above: Performed By: #### B METAL PUNCH PRESS OPERATOR, CK, CBC, HS TROP, BMP, PT, PTT #### [address] CO2 [Moles/Vol] 24.3 mmol/L Normal 21.0-31.0 [facility] Comment on above: Performed By: #### B METAL PUNCH PRESS OPERATOR, CK, CBC, HS TROP, BMP, PT, PTT #### [facility] [address] Creatinine [Mass/Vol] 0.92 mg/dL Normal 0.70-1.30 [facility] Comment on above: Performed By: #### B METAL PUNCH PRESS OPERATOR, CK, CBC, HS TROP, BMP, PT, PTT #### [facility] [address] Creatinine Clr Calc Pharmacy 65.05 [facility] Comment on above: Result Comment: PERF ORMED BY: [place] [address] PATHOLOGIST MOLD FORMS BUILDER DREW RELA M.D. Performed By: #### B METAL PUNCH PRESS OPERATOR, CK, CBC, HS TROP, BMP, PT, PTT #### [address] GFR/1.73 sq M.predicted MDRD (S/P/Bld) [Vol rate/Area] mL/min/{1.73_m2} [facility] Comment on above: Performed By: #### B METAL PUNCH PRESS OPERATOR, CK, CBC, HS TROP, BMP, PT, PTT #### [facility] [address] Glucose [Mass/Vol] 172 mg/dL High 70-100 [facility] Comment on above: Result Comment: [facility] Glucose Reference Range is dependent on time and content of last meal. Glucose of more than 200 mg/dL in a nonstressed, ambulatory subject supports the diagnosis of Diabetes Mellitus. ADA recommended reference range Performed By: #### B METAL PUNCH PRESS OPERATOR, CK, CBC, HS TROP, BMP, PT, PTT #### [facility] [address] Potassium [Moles/Vol] 3.4 mmol/L Low 3.5-5.1 [facility] Comment on above: Performed By: #### B METAL PUNCH PRESS OPERATOR, CK, CBC, HS TROP, BMP, PT, PTT #### [facility] [address] Sodium [Moles/Vol] 140 mmol/L Normal 136-145 [facility] Comment on above: Performed By: #### B METAL PUNCH PRESS OPERATOR, CK, CBC, HS TROP, BMP, PT, PTT #### [facility] [address] Urea nitrogen [Mass/Vol] 15 mg/dL Normal 7-[address] [facility] Comment on above: Performed By: #### B METAL PUNCH PRESS OPERATOR, CK, CBC, HS TROP, BMP, PT, PTT #### [facility] [address] Basophils Auto (Bld) [#/Vol] Ordered By: Cirilo Wise on 08-20-2022 Basophils (Bld) [#/Vol] 0.1 10*3/uL 0.0-0.[address] [facility] Basophils/100 WBC Auto (Bld) Ordered By: Cirilo Wise on 08-20-2022 Basophils/100 WBC (Bld) 0.5 % . [facility] Calcium [Mass/volume] in Ser um or PlasmaOrdered By: Cirilo Wise on 08-20-2022 Calcium [Mass/Vol] 9.4 mg/dL 8.6-10.3 [facility] Carbon dioxide, total [Moles /volume] in Serum or PlasmaOrdered By: Cirilo Wise on 08-20-2022 CO2 [Moles/Vol] 24.3 mmol/L 21.0-31.0 [facility] Chloride [Moles/volume] in S jamin or PlasmaOrdered By: Cirilo Wise on 08-20-2022 Chloride [Moles/Vol] 105 mmol/L 98-107 [facility] Complete Blood Count Auto Di ffon 08-20-2022 Basophils (Bld) [#/Vol] 0.1 10*3/uL Normal 0.0-0.[address] [facility] Comment on above: Result Comment: PERF ORMED BY: [facility] [address] [place] [address] PATHOLOGIST MOLD FORMS BUILDER DREW REAL M.D. Performed By: #### B METAL PUNCH PRESS OPERATOR, CK, CBC, HS TROP, BMP, PT, PTT #### [facility] [address] Basophils/100 WBC (Bld) 0.5 % Normal . [facility] Comment on above: Performed By: #### B METAL PUNCH PRESS OPERATOR, CK, CBC, HS TROP, BMP, PT, PTT #### [address] Eosinophils (Bld) [#/Vol] 0.1 10*3/uL Normal 0.0-0.[address] [facility] Comment on above: Performed By: #### B METAL PUNCH PRESS OPERATOR, CK, CBC, HS TROP, BMP, PT, PTT #### [address] Eosinophils/100 WBC (Bld) 1.3 % Normal . [facility] Comment on above: Performed By: #### B METAL PUNCH PRESS OPERATOR, CK, CBC, HS TROP, BMP, PT, PTT #### [address] Erythrocyte distribution width (RBC) [Ratio] 13.6 % Normal 12.0-14.[address] [facility] Comment on above: Performed By: #### B METAL PUNCH PRESS OPERATOR, CK, CBC, HS TROP, BMP, PT, PTT #### [address] Hematocrit (Bld) [Volume fraction] 44.0 % Normal 38.8-50.[address] [facility] Comment on above: Performed By: #### B METAL PUNCH PRESS OPERATOR, CK, CBC, HS TROP, BMP, PT, PTT #### [address] Hemoglobin (Bld) [Mass/Vol] 15.1 g/dL Normal 13.0-17.[address] [facility] Comment on above: Performed By: #### B METAL PUNCH PRESS OPERATOR, CK, CBC, HS TROP, BMP, PT, PTT #### [address] Lymphocytes (Bld) [#/Vol] 2.8 10*3/uL Normal 1.00-4.[address] [facility] Comment on above: Performed By: #### B METAL PUNCH PRESS OPERATOR, CK, CBC, HS TROP, BMP, PT, PTT #### [address] Lymphocytes/100 WBC (Bld) 26.2 % Normal . [facility] Comment on above: Performed By: #### B METAL PUNCH PRESS OPERATOR, CK, CBC, HS TROP, BMP, PT, PTT #### [address] MCH (RBC) [Entitic mass] 32.1 pg Normal 27.5-35.[address] [facility] Comment on above: Performed By: #### B METAL PUNCH PRESS OPERATOR, CK, CBC, HS TROP, BMP, PT, PTT #### [address] MCV (RBC) [Entitic vol] 93.4 fL Normal 83.5-101 [facility] Comment on above: Performed By: #### B METAL PUNCH PRESS OPERATOR, CK, CBC, HS TROP, BMP, PT, PTT #### [address] Mean Corpuscular HGB Conc 34.4 g/dL Normal 32.5-35.[address] [facility] Comment on above: Performed By: #### B METAL PUNCH PRESS OPERATOR, CK, CBC, HS TROP, BMP, PT, PTT #### [address] Monocytes (Bld) [#/Vol] 0.9 10*3/uL High 0.0-0.[address] [facility] Comment on above: Performed By: #### B METAL PUNCH PRESS OPERATOR, CK, CBC, HS TROP, BMP, PT, PTT #### [address] Monocytes/100 WBC (Bld) 16.35 % Normal 0.00-20.00 [facility] Comment on above: Performed By: #### B METAL PUNCH PRESS OPERATOR, CK, CBC, HS TROP, BMP, PT, PTT #### [address] Monocytes/100 WBC (Bld) 7.9 % Normal . [facility] Comment on above: Performed By: #### B METAL PUNCH PRESS OPERATOR, CK, CBC, HS TROP, BMP, PT, PTT #### [place] [id number] [place] Neutrophils (Bld) [#/Vol] 6.9 10*3/uL Normal 1.8-7.[address] [facility] Comment on above: Performed By: #### B METAL PUNCH PRESS OPERATOR, CK, CBC, HS TROP, BMP, PT, PTT #### [address] Neutrophils/100 WBC (Bld) 64.1 % Normal . [facility] Comment on above: Performed By: #### B METAL PUNCH PRESS OPERATOR, CK, CBC, HS TROP, BMP, PT, PTT #### [address] NRBC% 0.1 /100{WBC} Normal 0-0.[address] [facility] Comment on above: Performed By: #### B METAL PUNCH PRESS OPERATOR, CK, CBC, HS TROP, BMP, PT, PTT #### [address] Platelet mean volume (Bld) [Entitic vol] 9.7 fL Normal 6.6-10.[address] [facility] Comment on above: Performed By: #### B METAL PUNCH PRESS OPERATOR, CK, CBC, HS TROP, BMP, PT, PTT #### [address] Platelets (Bld) [#/Vol] 215 10*3/uL Normal 150-[address] [facility] Comment on above: Performed By: #### B METAL PUNCH PRESS OPERATOR, CK, CBC, HS TROP, BMP, PT, PTT #### [address] RBC (Bld) [#/Vol] 4.71 10*6/uL Normal 3.90-5.60 [facility] Comment on above: Performed By: #### B METAL PUNCH PRESS OPERATOR, CK, CBC, HS TROP, BMP, PT, PTT #### [address] WBC (Bld) [#/Vol] 10.7 10*3/uL High 4.1-10.5 [facility] Comment on above: Performed By: #### B METAL PUNCH PRESS OPERATOR, CK, CBC, HS TROP, BMP, PT, PTT #### [facility] [address] [place] [address] [place] Creatine Kinaseon 08-20-2022 CK [Catalytic activity/Vol] 115 U/L Normal [facility] Comment on above: Performed By: #### B METAL PUNCH PRESS OPERATOR, CK, CBC, HS TROP, BMP, PT, PTT #### [facility] [address] [place] [id number] [facility] Creatine kinase [Enzymatic a ctivity/volume] in Serum or PlasmaOrdered By: Cirilo Wise on 08-20-2022 CK [Catalytic activity/Vol] 115 U/L [facility] Creatinine [Mass/volume] in Serum or PlasmaOrdered By: Cirilo Wise on 08-20-2022 Creatinine [Mass/Vol] 0.92 mg/dL 0.70-1.30 [facility] ECG 12 lead ECGon 08-20-2022 ECG 12 lead ECG [facility] Main [place] [address] [place] [address] Electrocardiograph Report Signed Patient: Olaf Briones MR#: [id number] [birth year] : 1945 Acct:[id number] Age/Sex: 77 / M ADM Date: 08/20/22 Loc: Room: [address] [place] [address] Type: REG [facility] Attending Dr: Steven Zamora DO Ordering Provider: [...] ECGs available Confirmed by SHANNON COCHRAN DO ([id number]) on 08/21/2022 2:06:14 AM Referred By: Electronically Signed By:SHANNON COCHRAN DO Transcribed By: MUS Signed By Shannon Cochran DO 08/21 [address] [facility] Eosinophils Auto (Bld) [#/Vo l]Ordered By: Cirilo Wise on 08-20-2022 Eosinophils (Bld) [#/Vol] 0.1 10*3/uL 0.0-0.[address] [facility] Eosinophils/100 WBC Auto (Bl d)Ordered By: Cirilo Wise on 08-20-2022 Eosinophils/100 WBC (Bld) 1.3 % . [facility] Erythrocyte distribution wid th Auto (RBC) [Ratio]Ordered By: Cirilo Wise on 08-20-2022 Erythrocyte distribution width (RBC) [Ratio] 13.6 % 12.0-14.[address] [facility] Glucose [Mass/volume] in Ser um or PlasmaOrdered By: Cirilo Wise on 08-20-2022 Glucose [Mass/Vol] 172 mg/dL 70-100 [facility] Comment on above: ADA recommended refe rence rangeRandom Glucose Reference Range is dependent on time and content of last meal. Glucose of more than 200 mg/dL in a nonstressed, ambulatory subject supports the diagnosis of Diabetes Mellitus. Hematocrit Auto (Bld) [Volum e fraction]Ordered By: Cirilo Wise on 08-20-2022 Hematocrit (Bld) [Volume fraction] 44.0 % 38.8-50.[address] [facility] Hemoglobin [Mass/volume] in BloodOrdered By: Cirilo Wise on 08-20-2022 Hemoglobin (Bld) [Mass/Vol] 15.1 g/dL 13.0-17.[address] [facility] Laboratory - CoagulationOrde red By: Cirilo Wise on 08-20-2022 PT Coag (PPP) [Time] 11.4 s 9.0-12.9 [facility] Leukocytes [#/volume] correc betty for nucleated erythrocytes in Blood by Automated counOrdered By: Cirilo Wise on 08-20-2022 WBC corrected for nucl RBC Auto (Bld) [#/Vol] 10.7 10*3/uL 4.1-10.[address] [facility] Lymphocytes Auto (Bld) [#/Vo l]Ordered By: Cirilo Wise on 08-20-2022 Lymphocytes (Bld) [#/Vol] 2.8 10*3/uL 1.00-4.[address] [facility] Lymphocytes/100 WBC Auto (Bl d)Ordered By: Cirilo Wise on 08-20-2022 Lymphocytes/100 WBC (Bld) 26.2 % . [facility] MCH Auto (RBC) [Entitic mass ]Ordered By: Cirilo Wise on 08-20-2022 MCH (RBC) [Entitic mass] 32.1 pg 27.5-35.[address] [facility] MCHC Auto (RBC) [Mass/Vol]Or dered By: Cirilo Wise on 08-20-2022 MCHC (RBC) [Mass/Vol] 34.4 g/dL 32.5-35.6 [facility] MCV Auto (RBC) [Entitic vol] Ordered By: Cirilo Wise on 08-20-2022 MCV (RBC) [Entitic vol] 93.4 fL 83.5-101 [facility] Monocyte distribution width [Entitic volume] in Blood by AutomatedOrdered By: Cirilo Wise on 08-20-2022 Monocyte distribution width Auto (Bld) [Entitic vol] 16.35 % 0.00-20.[address] [facility] Monocytes Auto (Bld) [#/Vol] Ordered By: Cirilo Wise on 08-20-2022 Monocytes (Bld) [#/Vol] 0.9 10*3/uL 0.0-0.[address] [facility] Monocytes/100 WBC Auto (Bld) Ordered By: Cirilo Wise on 08-20-2022 Monocytes/100 WBC (Bld) 7.9 % . [facility] Natriuretic peptide B [Mass/ Vol]Ordered By: Cirilo Wise on 08-20-2022 Natriuretic peptide B (Bld) [Mass/Vol] 24.0 pg/mL 5-[address] [facility] Neutrophils Auto (Bld) [#/Vo l]Ordered By: Cirilo Wise on 08-20-2022 Neutrophils (Bld) [#/Vol] 6.9 10*3/uL 1.8-7.[address] [facility] Neutrophils/100 WBC Auto (Bl d)Ordered By: Cirilo Wise on 08-20-2022 Neutrophils/100 WBC (Bld) 64.1 % . [facility] No Panel Informationon 08-20 2529.3\S\2529.3 Critically high 0.0-20.0 [facility] [place] [facility] eduardo 250 DO Work Phone: Comment on above: Critical Result : Ca lled to and read back by: ARY BUSTILLOS at: 08/20/2022 19:45:52 by:[id number] BY:[facility] [place], [place] [id number] MEDICAL DIRECTORDREW REAL M.D. No Panel InformationOrdered By: Cirilo Wise on 08-20-2022 Estimated GFR (CKD-EPI) > 60.0 mL/Min [facility] Pharmacy Creatinine Clearance (Chem 65.[address] [facility] Nucleated erythrocytes [Pres ence] in Blood by Automated countOrdered By: Cirilo Wise on 08-20-2022 Nucleated RBC Auto Ql (Bld) 0.1 /100{WBC} 0-0.[address] [facility] Partial Thromboplastin Timeo n 08-20-2022 aPTT Coag (Bld) [Time] 25.1 s Normal 25.1-36.5 [facility] Comment on above: Result Comment: PERF ORMED BY: [facility] [address] [place] [address] PATHOLOGIST M[employer] FORMS BUILDER DREW REAL M.D. Performed By: #### B METAL PUNCH PRESS OPERATOR, CK, CBC, HS TROP, BMP, PT, PTT #### [facility] [address] [place] [id number] [facility] Platelet mean volume Auto (B ld) [Entitic vol]Ordered By: Cirilo Wise on 08-20-2022 Platelet mean volume (Bld) [Entitic vol] 9.7 fL 6.6-10.[address] [facility] Platelet poor plasma interna tional normalized ratio (INR) by coagulation assay (relatOrdered By: Cirilo Wise on 08-20-2022 INR Coag (PPP) [Relative time] 1.0 {INR} [facility] Comment on above: INR Therapeutic [...] 08-20-2022 Platelets (Bld) [#/Vol] 215 10*3/uL 150-[address] [facility] Potassium [Moles/volume] in Serum or PlasmaOrdered By: Cirilo Wise on 08-20-2022 Potassium [Moles/Vol] 3.4 mmol/L 3.5-5.1 [facility] Prothrombin Time INRon 08-20 INR Coag (PPP) [Relative time] 1.0 {INR} Normal [facility] Comment on above: Result Comment: [...] 3 - 4.5 Performed By: #### B METAL PUNCH PRESS OPERATOR, CK, CBC, HS TROP, BMP, PT, PTT #### [facility] [address] PT Coag (PPP) [Time] 11.4 s Normal 9.0-12.9 [facility] Comment on above: Performed By: #### B METAL PUNCH PRESS OPERATOR, CK, CBC, HS TROP, BMP, PT, PTT #### [facility] [address] RBC Auto (Bld) [#/Vol]Ordere d By: Cirilo Wise on 08-20-2022 RBC (Bld) [#/Vol] 4.71 10*6/uL 3.90-5.60 [facility] Serum or plasma anion gap de terminationOrdered By: Cirilo Wise on 08-20-2022 Anion gap [Moles/Vol] 14.1 mmol/L 6.0-15.0 [facility] Sodium [Moles/volume] in Ser um or PlasmaOrdered By: Cirilo Wise on 08-20-2022 Sodium [Moles/Vol] 140 mmol/L 136-145 [facility] Troponin I High Sensitivityo n 08-20-2022 Troponin I High Sensitivity 9010.4 pg/mL Off scale high 0.0-20.[address] [facility] Comment on above: Result Comment: Crit ical Result : Called to and read back by: ARY BUSTILLOS at: 08/20/2022 22:35:19 by:[id number] PERFORMED BY: [place] [address] PATHOLOGIST M[employer] FORMS BUILDER DREW REAL M.D. Performed By: #### H S TROP #### [facility] [address] [place] [address] Troponin I High Sensitivity 2529.3 pg/mL Off scale high 0.0-20.[address] [facility] Comment on above: Result Comment: Crit ical Result : Called to and read back by: ARY BUSTILLOS at: 08/20/2022 19:45:52 by:[id number] PERFORMED BY: [place] [phone] PATHOLOGIST MOLD FORMS BUILDER DREW REAL M.D. Performed By: #### H S TROP #### [facility] [address] [place] [address] Troponin I High Sensitivity 366.3 pg/mL Off scale high 0.0-20.[address] [facility] Comment on above: Result Comment: Crit ical Result : Called to and read back by: SHANNON FERREIRA at: 08/20/2022 17:43:14 by:[id number] PERFORMED BY: [place] [address] PATHOLOGIST M[employer] FORMS BUILDER DREW REAL M.D. Performed By: #### H S TROP #### [address] Troponin I.cardiac [Mass/vol ume] in Serum or Plasma by Detection limit <= 0.01 ng/Ordered By: Cirilo Wise on 08-20-2022 Troponin I.cardiac DL <= 0.01 ng/mL [Mass/Vol] 366.3 pg/mL 0.0-20.[address] [facility] Comment on above: Critical Result : Ca lled to and read back by: SHANNON FERREIRA at: 08/20/2022 17:43:14 by:[id number] Urea nitrogen [Mass/volume] in Serum or PlasmaOrdered By: Cirilo Wise on 08-20-2022 Urea nitrogen [Mass/Vol] 15 mg/dL 09-[address] [facility] WBC Auto (Bld) [#/Vol]Ordere d By: Cirilo Wise on 08-20-2022 WBC (Bld) [#/Vol] 10.7 10*3/uL 4.1-10.5 [facility] XR chest 1Von 08-20-2022 XR chest 1V [facility] Main [place] [address] [place] [address] XRay Report Signed Patient: Olaf Briones MR#: [id number] 2 : 1945 Acct:[id number] Age/Sex: 77 / M ADM Date: 08/20/22 Loc: Room: Type: [facility] Attending Dr: Steven Zamora DO Copies [...] Lucinda Monreal M.D.08/20/2022 4:50 PM Dictation Location: [place] [address] Transcribed By: [facility] 08/20/22 1650 Dictated By: Lucinda Monreal MD 08/20/22 1648 Signed By: 08/20/22 1650 [facility] Office Visit (Cardiology)on 06-01-2022 Follow-up visit Diagnoses/Problems [...] Weight Tips; Status:Complete - Retrospective Authorization; Done: [id number] Some eating tips that can help you lose weight.; Status:Complete - Retrospective Authorization; Done: [id number] SocHx: Former smoker Tobacco Use Screening; Status:Complete; Done: [id number] Patient Instructions Please bring all medicines, vitamins, [...] in 1 year. Lab as scheduled with ID Chief Complaint OLAF BRIONES is being seen [...] negative for complaint. Vitals Vital Signs Recorded: [id number] 10:52AMRecorded: 13Lwz6410 10:34AM [id number], LUE, Sitting Vwhwmeovw1760, LUE, Sitting Heart Rate72, L Radial Height5 ft 6 in Fgheeo213 lb BMI Zejntznicr59.73 kg/m2 BSA Calculated1.9 Tobacco Useb) No PHQ-2 #1. Over the last 2 weeks have you felt down, depressed (more content not included)... Normal [facility] XR KUB 1 VIEWon 10-26-2021 XR KUB [...] by: AMNA BALDWIN Date: 2021-10-26 10:33 Normal [facility] Office Visit (Cardiology)on 09-18-2021 Follow-up visit [...] Former smoker Tobacco Use Screening; Status:Complete; Done: [id number] Tobacco Use Screening; Status:Complete; Done: [id number] Patient Instructions Please bring all medicines, vitamins, [...] Recorded: 18Sep2021 10:16AM Heart Rate64, L Radial Gbpiujti342, (more content not included)... Normal [facility] Tobacco Screening.on 022 Fall risk assessment a) No falls within the last year [facility] [employer] 250 DO Work Phone: Tobacco use status [facility] b) No M [facility] [employer] 250 DO Work Phone: IO EKG Electrocardiogram- 12 Leadon 11-24-2020 IO EKG Electrocardiogram- 12 Lead See Scanned Document [facility] [employer] 250 DO Work Phone: Tobacco Screening.on 021 Fall risk assessment a) No falls within the last year [facility] [employer] 250 DO Work Phone: Tobacco use status [facility] b) No M [facility] [employer] 250 DO Work Phone: Vital Signs Date Time Vital Sign Value Performing Clinician Facility 06-26-2023 15:02-0400 Body height 172.7 cm Ashutosh Ling MD Work Phone: [facility] 06-26-2023 15:02-0400 Body mass index (BMI) [Ratio] 26.15 kg/m2 Ashutosh Ling MD Work Phone: [facility] 06-26-2023 15:02-0400 Body weight 78.02 kg Ashutosh Ling MD Work Phone: [facility] 06-26-2023 15:02-0400 Diastolic blood pressure 68 mm[Hg] Ashutosh Ling MD Work Phone: [facility] 06-26-2023 15:02-0400 Heart rate 60 /min Ashutosh Ling MD Work Phone: [facility] 06-26-2023 15:02-0400 Systolic blood pressure 120 mm[Hg] Ashutosh Ling MD Work Phone: [facility] 01-09-2023 15:38-0500 Body height 172.7 cm Ashutosh Ling MD Work Phone: [facility] 01-09-2023 15:38-0500 Body mass index (BMI) [Ratio] 26.76 kg/m2 Ashutosh Ling MD Work Phone: [facility] 01-09-2023 15:38-0500 Body weight 79.83 kg Ashutosh Ling MD Work Phone: [facility] 01-09-2023 15:38-0500 Diastolic blood pressure 76 mm[Hg] Ashutosh Ling MD Work Phone: [facility] 01-09-2023 15:38-0500 Heart rate 58 /min Ashutosh Ling MD Work Phone: [facility] 01-09-2023 15:38-0500 Systolic blood pressure 142 mm[Hg] Ashutosh Ling MD Work Phone: [facility] 10-29-2022 11:35-0400 Body height 172.72 cm Estellascottie Siddiqui Other [employer] Other 10-29-2022 11:35-0400 Body mass index (BMI) [Ratio] 26.64 kg/m2 Estella Chen Other [employer] Other 10-29-2022 11:35-0400 Body temperature 98.2 [degF] Estella Chen Other [employer] Other 10-29-2022 11:35-0400 Body weight 79.47 kg Estella Chen Other [employer] Other 10-29-2022 11:35-0400 Diastolic blood pressure 76 mm[Hg] Estella Chen Other [employer] Other 10-29-2022 11:35-0400 Respiratory rate 18 /min Estella Chen Other [employer] Other 10-29-2022 11:35-0400 SaO2% (BldA) [Mass fraction] 98 % Estella Siddiqui Other [employer] Other 10-29-2022 11:35-0400 Systolic blood pressure 140 mm[Hg] Estella Siddiqui Other [facility] [employer] Other 09-05-2022 13:02-0400 Body height 167.64 cm Nahomi Hernandez Work Phone: [facility] 250 DO Work Phone: 09-05-2022 13:02-0400 Body mass index (BMI) [Ratio] 27.6 kg/m2 Nahomi Hernandez Work Phone: [facility] 250 DO Work Phone: 09-05-2022 13:02-0400 Body surface area Derived from formula 1.87 m2 Nahomi Hernandez Work Phone: [facility] 250 DO Work Phone: 09-05-2022 13:02-0400 Body weight 77.57 kg Nahomi Hernandez Work Phone: [facility] 250 DO Work Phone: 09-05-2022 13:02-0400 Diastolic blood pressure 54 mm[Hg] Nahomi Hernandez Work Phone: [facility] 250 DO Work Phone: 09-05-2022 13:02-0400 Heart rate 68 /min Nahomi Hernandez Work Phone: [facility] 250 DO Work Phone: 09-05-2022 13:02-0400 Systolic blood pressure 126 mm[Hg] Nahomi Hernandez Work Phone: [facility] 250 DO Work Phone: 08-27-2022 03:30-0400 Diastolic blood pressure 76 mm[Hg] [facility] 08-27-2022 03:30-0400 Heart rate 74 /min [facility] 08-27-2022 03:30-0400 Mean blood pressure 87 mm[Hg] [facility] 08-27-2022 03:30-0400 Respiratory rate 14 /min [facility] 08-27-2022 03:30-0400 SaO2% (BldA) [Mass fraction] 96 % [facility] 08-27-2022 03:30-0400 Systolic blood pressure 110 mm[Hg] [facility] 08-27-2022 03:00-0400 Diastolic blood pressure 80 mm[Hg] [facility] 08-27-2022 03:00-0400 Heart rate 80 /min [facility] 08-27-2022 03:00-0400 Mean blood pressure 97 mm[Hg] [facility] 08-27-2022 03:00-0400 Respiratory rate 15 /min [facility] 08-27-2022 02:30-0400 Diastolic blood pressure 73 mm[Hg] [facility] 08-27-2022 02:30-0400 Heart rate 96 /min [facility] 08-27-2022 02:30-0400 Mean blood pressure 92 mm[Hg] [facility] 08-27-2022 02:30-0400 Respiratory rate 20 /min [facility] 08-27-2022 02:30-0400 SaO2% (BldA) [Mass fraction] 98 % [facility] 08-27-2022 02:30-0400 Systolic blood pressure 130 mm[Hg] [facility] 08-26-2022 19:17-0400 Respiratory rate 18 /min [facility] 08-26-2022 18:11-0400 Respiratory rate 18 /min [facility] 08-26-2022 17:07-0400 Body temperature 97.7 [degF] [facility] 08-26-2022 17:07-0400 Heart rate 83 /min [facility] 08-26-2022 17:07-0400 Respiratory rate 18 /min [facility] 08-22-2022 15:50-0400 Body temperature 98.2 [degF] [facility] 08-22-2022 15:50-0400 Diastolic blood pressure 64 mm[Hg] [facility] 08-22-2022 15:50-0400 Heart rate 64 /min [facility] 08-22-2022 15:50-0400 Respiratory rate 18 /min [facility] 08-22-2022 15:50-0400 SaO2% (BldA) [Mass fraction] 99 % [facility] 08-22-2022 15:50-0400 Systolic blood pressure 124 mm[Hg] [facility] 08-22-2022 05:48-0400 Body weight 81 kg [facility] 08-21-2022 10:27-0400 70 1 Jame Musaight Work Phone: [facility] 250 DO Work Phone: Comment on above: [id number] 08-20-2022 18:32-0400 Body height 172.72 cm [facility] 08-20-2022 17:13-0400 Heart rate 42 /min [facility] 08-20-2022 16:38-0400 Diastolic blood pressure 60 mm[Hg] [facility] 08-20-2022 16:38-0400 Respiratory rate 18 /min [facility] 08-20-2022 16:38-0400 SaO2% (BldA) [Mass fraction] 98 % [facility] 08-20-2022 16:38-0400 Systolic blood pressure 123 mm[Hg] [facility] 08-20-2022 16:25-0400 Body height 172.72 cm [facility] 08-20-2022 16:25-0400 Body temperature 97.6 [degF] [facility] 08-20-2022 16:25-0400 Body weight 81.5 kg [facility] 10-27-2021 08:55-0400 Blood Pressure Location Shanna IVORY [facility] 10-27-2021 08:55-0400 Diastolic blood pressure 76 mm[Hg] Shanna IVORY [facility] 10-27-2021 08:55-0400 Heart rate 64 /min Shanna IVORY [facility] 10-27-2021 08:55-0400 Respiratory rate 16 /min Shanna IVORY [facility] 10-27-2021 08:55-0400 Systolic blood pressure 125 mm[Hg] Shannasuresh IVORY [facility] 03-07-2021 15:22-0500 Diastolic blood pressure 78 mm[Hg] Jame Barraza Work Phone: [facility] 250 DO Work Phone: 03-07-2021 15:22-0500 Systolic blood pressure 139 mm[Hg] Jame Barraza Work Phone: [facility] 250 DO Work Phone: 03-07-2021 14:47-0500 Body height 167.64 cm Jame Barraza Work Phone: [facility] 250 DO Work Phone: 03-07-2021 14:47-0500 Body mass index (BMI) [Ratio] 28.73 kg/m2 Jame Barraza Work Phone: [facility] 250 DO Work Phone: 03-07-2021 14:47-0500 Body surface area Derived from formula 1.9 m2 Jame Barraza Work Phone: [facility] 250 DO Work Phone: 03-07-2021 14:47-0500 Body weight 80.74 kg Jame Barraza Work Phone: [facility] 250 DO Work Phone: 03-07-2021 14:47-0500 Diastolic blood pressure 82 mm[Hg] Jame Barraza Work Phone: [facility] 250 DO Work Phone: 03-07-2021 14:47-0500 Heart rate 84 /min Jame Barraza Work Phone: [facility] 250 DO Work Phone: 03-07-2021 14:47-0500 Systolic blood pressure 172 mm[Hg] Jame Barraza Work Phone: [facility] 250 DO Work Phone: 11-24-2020 08:51-0400 Body height 167.64 cm Jame Barraza Work Phone: [facility] 250 DO Work Phone: 11-24-2020 08:51-0400 Body mass index (BMI) [Ratio] 28.08 kg/m2 Jame Barraza Work Phone: [facility] 250 DO Work Phone: 11-24-2020 08:51-0400 Body surface area Derived from formula 1.89 m2 Jame Barraza Work Phone: [facility] 250 DO Work Phone: 11-24-2020 08:51-0400 Body weight 78.93 kg Jame Barraza Work Phone: [facility] 250 DO Work Phone: 11-24-2020 08:51-0400 Diastolic blood pressure 82 mm[Hg] Jame Barraza Work Phone: [facility] 250 DO Work Phone: 11-24-2020 08:51-0400 Diastolic blood pressure 80 mm[Hg] Jame Barraza Work Phone: [facility] 250 DO Work Phone: 11-24-2020 08:51-0400 Heart rate 66 /min Jame Barraza Work Phone: [facility] 250 DO Work Phone: 11-24-2020 08:51-0400 Systolic blood pressure 136 mm[Hg] Jame Barraza Work Phone: [facility] 250 DO Work Phone: 11-24-2020 08:51-0400 Systolic blood pressure 138 mm[Hg] Jame Barraza Work Phone: [facility] 250 DO Work Phone: Encounters Encounter Date Encounter Type Care Provider Facility Start: 11-29-2023 ambulatory Shanna Yousif ty:LAYTON Schulte Start: 07-22-2023 End: 07-22-2023 ambulatory Alonzo Briscoe MD Facility: [facility] Start: 06-26-2023 End: 06-26-2023 [facility] Start: 06-26-2023 End: 06-26-2023 Office outpatient visit 25 minutes Ashutosh Ling MD Work Phone: [facility] Comment on above: Essential hypertensi on (Primary Dx); Arteriosclerotic cardiovascular disease; Abnormal EKG; Mixed hyperlipidemia; Post PTCA; BMI 26.0-26.9,adult; Never smoked tobacco Start: 06-18-2023 End: 06-18-2023 ambulatory LUCINDA VICKERS Not Available Start: 05-21-2023 End: 05-21-2023 ambulatory DAV Martinez SUDHIR Not Available Start: 03-18-2023 End: 03-18-2023 ambulatory [facility] Start: 03-12-2023 End: 03-12-2023 ambulatory DAV Martinez SUDHIR Not Available Start: 03-04-2023 End: 03-04-2023 ambulatory Alonzo Briscoe MD Facility:[facility] Start: 02-04-2023 End: 02-04-2023 ambulatory Alonzo Briscoe MD Facility:[facility] Start: 01-09-2023 End: 01-09-2023 [facility] Start: 01-09-2023 End: 01-09-2023 Office outpatient visit 25 minutes Ashutosh Ling MD Work Phone: [facility] Comment on above: Arteriosclerotic car diovascular disease (Primary Dx); Abnormal EKG; Mixed hyperlipidemia; Primary hypertension; Post PTCA; Essential hypertension; BMI 26.0-26.9,adult; Easy bruisability Start: 11-26-2022 End: 11-27-2022 ambulatory Shanna IVORY Facility:[facility] Start: 10-29-2022 End: 10-29-2022 ambulatory Estella Siddiqui Other [facility] [employer] Other Start: 10-29-2022 Office outpatient ne w 10 minutes Estella Siddiqui [facility] Start: 10-01-2022 Rx Renewal Nahomi Hernandez Work Phone: [facility] 250 DO Work Phone: Start: 09-14-2022 Rx Renewal Nahomi Hernandez Work Phone: [facility] 250 DO Work Phone: Start: 09-06-2022 Telephone encounter [facility] Comment on above: Patient Update Start: 09-05-2022 Office outpatient vi sit 25 minutes Nahomi Hernandez Work Phone: [facility] 250 DO Work Phone: Start: 09-05-2022 Patient encounter procedure Nahomi Elissa David Work Phone: [facility] 250 DO Work Phone: Start: 09-05-[address] Ashutosh Ling Facility:[facility] Start: 09-05-2022 End: 09-06-2022 ambulatory Alexandre KOROMA Facility:[facility] Start: 09-05-2022 End: 09-05-2022 Patient encounter procedure Alexandre KOROMA [facility] Start: 09-04-2022 Telephone encounter Deborah Ibarra RN NOC Comment on above: Follow Up Phone Call (All Clear) Start: 08-27-2022 End: 08-31-2022 Evaluation and management of inpatient DAVID ANDREWS Facility:[facility] Start: 08-26-2022 End: 08-27-2022 Emergency department patient visit [facility] Start: 08-26-2022 End: 08-27-2022 Emergency department patient visit [facility] Start: 08-26-2022 End: 08-28-2022 ambulatory Alexandre KOROMA Facility:CD:[id number] Start: 08-24-2022 Chart Update Jame Barraza Work Phone: [facility] 250 DO Work Phone: Start: 08-22-[address] Jame Barraza Facility:[id number] Start: 08-21-[address] Jame Barraza Facility:[id number] Start: 08-20-2022 End: 08-22-2022 Evaluation and management of inpatient Steven Zamora Facility:[facility] Start: 08-20-2022 End: 08-22-2022 Evaluation and management of inpatient [facility] Work Phone: Start: 08-20-2022 Admission to [facility] Instructor Work Phone: Start: 08-20-2022 ambulatory NON STAFF [facility] Work Phone: Start: 08-20-[address] Ben Zamora Facility:[id number] Start: 08-20-[address] Jame Barraza Facility:[id number] Start: 06-01-[address] Nahomi Hernandez Facility: Start: 05-08-2022 ambulatory Shanna IVORY Facility :[facility] Start: 10-27-2021 End: 10-27-2021 Patient encounter procedure Shanna IVORY [facility] Start: 10-26-2021 End: 10-27-[address] SHANNA IVORY Facility:[facility] Start: 05-04-2021 ambulatory DOMINGUEZ GUTIERREZ Faci lity:H1 Start: 03-07-2021 Office outpatient vi sit 25 minutes Jame Barraza Work Phone: [facility] 250 DO Work Phone: Start: 11-29-2020 Chart Update Jame Barraza Work Phone: [facility] 250 DO Work Phone: Start: 11-28-2020 Patient encounter procedure Jame Barraza Work Phone: [facility] [place] Work Phone: Start: 11-24-2020 AUDIT Jame Barraza Work Phone: [facility] 250 DO Work Phone: Procedures Date Procedure Procedure Detail Performing Clinician Start: 06-26-2023 FOLLOW UP IN CARDIOLOGY AHSUTOSH LING Start: 08-30-2022 Antibody screen DAVID PEREZ Comment on above: Order Comment: Speci men Type: BLOOD SPECIMENOrdering Facility: [facility] Address: [address] [place] [address] Performed By: #### T SCR ####CC MAIN BLOOD BANKCLIA [id number] [address] Start: 08-27-2022 Antibody screen DAVID RANULFO PEREZ Comment on above: Order Comment: Speci men Type: BLOOD SPECIMENOrdering Facility: [facility] Address: [address] [place] [place] [address] Performed By: #### T SCR ####CC MAIN BLOOD BANKCLIA [id number] [address] Start: 08-20-[address] [...] DTaP/Tdap/Td Vaccines (2 - Td or Tdap) [facility] Start: 03-27-2031 Urine microalbumin profile DTAP,TDAP,TD (2 - Td or Tdap) [facility] Start: 03-13-2024 End: 03-13-2024 Patient encounter procedure 03/13/2024 11:20 AM EST Office Visit [place] [id number] [facility] [address] [place] [id number] Ashutosh Ling MD [address] [facility] [address] [place] [address] [facility] Start: 06-26-2023 End: 06-26-2023 Patient encounter procedure 06/26/2023 3:10 PM EDT Office Visit [facility] [address] [facility] [address] [place] [id number] Ashutosh Ling MD [address] [facility] [address] [place] [address] [facility] Start: 06-07-2023 FUV, Provider: Ashutosh Ling, Status: Pen, Time: 11:20 AM FUV, Provider: Ashutosh Ling, Status: Pen, Time: 11:20 AM [facility] Work [facility]: Start: 01-09-2023 FUV, Provider: Ashutosh Ling, Status: Pen, Time: 3:30 PM FUV, Provider: Ashutosh Ling, Status: Pen, Time: 3:30 PM [facility] Work [facility]: Start: 10-19-2022 COVID-19 Vaccine ( season) COVID-19 Vaccine ( season) [facility] Start: 10-19-2022 Influenza vaccination INFLUENZA (#1) [facility] Start: 09-05-2022 FUV, Provider: Ashutosh Ling, Status: Pen, Time: 12:50 PM FUV, Provider: Ashutosh Ling, Status: Pen, Time: 12:50 PM [facility] 250 DO Work Phone: Start: 08-22-[address] [facility] Start: 08-20-[address] [facility] Start: 08-20-2022 Referral to cardiac rehabilitation program [facility] Start: 08-20-[address] [facility] Start: 08-20-2022 End: 08-20-2022 Hospital admission [facility] Start: 02-18-2022 ADVANCE DIRECTIVE DISCUSSION ADVANCE DIRECTIVE DISCUSSION [facility] Start: 02-18-2022 DEPRESSION ASSESSMENT DEPRESSION ASSESSMENT [facility] Start: 08-30-2021 FUV, Provider: Ashutosh Ling, Status: Pen, Time: 2:30 PM FUV, Provider: Ashutosh Ling, Status: Pen, Time: 2:30 PM [facility] DO Work Phone: Start: 04-03-2021 COVID-19 VACCINE (4 - Pfizer series) COVID-19 VACCINE (4 - Pfizer series) [facility] Start: 03-07-2021 FUV, Provider: Ashutosh Ling, Status: Pen, Time: 2:50 PM FUV, Provider: Ashutosh Ling, Status: Pen, Time: 2:50 PM [facility] 250 DO Work Phone: Start: 11-28-2020 EVENT ELIEZER, Provider: FADUMO BENSON AUDITING CODER 1,[id number], Status: Pen, Time: 10:30 AM EVENT ELIEZER, Provider: FADUMO BENSON AUDITING CODER 1,[id number], Status: Pen, Time: 10:30 AM [facility] DO Work Phone: Start: 2005 RSV patients and/or patients aged 60+ years (1 - 1-dose 60+ series) RSV patients and/or patients aged 60+ years (1 - 1-dose 60+ series) [facility] Start: 06-18-1995 SHINGRIX VACCINE (1 of 2) SHINGRIX VACCINE (1 of 2) [facility] Start: 06-18-1995 Zoster Vaccines (1 of 2) Zoster Vaccines (1 of 2) [facility] Start: 06-18-1963 ANNUAL PCP TEAM CHRONIC DISEASE VISIT ANNUAL PCP TEAM CHRONIC DISEASE VISIT [facility] Start: 06-18-1963 BP CONTROLLED (<130/80) BP CONTROLLED (<130/80) [facility] Start: 06-18-1963 Diabetes mellitus screening Diabetes Screening [facility] Start: 06-18-1963 Hepatitis B surface antibody level LDL CHOLESTEROL [facility] Start: 06-18-1963 HEPATITIS C SCREENING HEPATITIS C SCREENING [facility] Start: 06-18-1963 Hepatitis C screening Hepatitis C Screening [facility] Start: 06-18-1955 3 comp foot exam completed DIABETIC FOOT EXAM [facility] Start: 06-18-1955 Hepatitis B screening URINE ALBUMIN:CREATININE RATIO [facility] Start: 06-18-1955 Hepatitis C antibody, confirmatory test DILATED RETINAL EXAM [facility] Start: 1950 Hemoglobin A1c/Hemoglobin.total in Blood HBA1C [facility] Start: 1945 Lipid panel Lipid Panel [facility] Start: 1945 Medicare Annual Wellness Visit Medicare Annual Wellness Visit (AWV) [facility] Patient Education Coronary Angio plasty (DC) Coronary Stenting (DC) Angina (DC) Chest Pain (DC) Drug Eluting Stents [facility] Work Phone: Patient referral [facility] Work Phone: Immunizations Immunization Date Immunization Notes Care Provider Fa cility 02-18-2022 influenza nasal, unspecified formulation Deborah Ibarra RN [facility] 12-26-2021 Fluad Quadrivalent 0 .5 ML Intramuscular Prefilled Syringe Jame Barraza Work Phone: [facility] 12-26-2021 influenza, high dose seasonal, preservative-free Ashutosh Ling MD Work Phone: [facility] Work Phone: 03-27-2021 tetanus toxoid, redu shruti diphtheria toxoid, and acellular pertussis vaccine, adsorbed Deborah Ibarra RN [facility] 02-06-2021 Pfizer-BioNTech COVID-19 Vacc 30 MCG/0.3ML Intramuscular Suspension Jame Barraza Work Phone: [facility] 11-18-2020 influenza nasal, unspecified formulation Deborah Ibarra RN [facility] 11-10-2020 Fluad Quadrivalent 0 .5 ML Intramuscular Prefilled Syringe Jame Barraza Work Phone: [facility] 04-12-2020 Pfizer-BioNTech COVID-19 Vacc 30 MCG/0.3ML Intramuscular Suspension Jame Barraza Work Phone: [facility] 03-28-2020 COVID-19 original vaccine, age 12+ yr, monovalent (PFIZER-BIONTECH - PURPLE TOP) Deborah Ibarra RN [facility] 03-22-2020 Pfizer-BioNTech COVID-19 Vacc 30 MCG/0.3ML Intramuscular Suspension Jame Barraza Work Phone: [facility] 03-21-2020 SARS-CoV-2 (COVID-19 ) Ad26 vaccine, recombinant Shanna IVORY [facility] Comment on above: Result Comment: unab le to give exact dates 12-16-2019 influenza (HD-IIV4) vaccine, age 65+ yr, high dose, quadrivalent, PF (FLUZONE HIGH-DOSE) Deborah Ibarra RN [facility] 12-16-2018 AS03 adjuvant Deborah Ibarra RN [facility] 12-24-2017 AS03 adjuvant Deborah Ibarra RN [facility] 12-21-2016 influenza, high dose seasonal, preservative-free Deborah Ibarra RN [facility] 02-19-2016 pneumococcal polysaccharide vaccine, 23 valent Jame Barraza Work Phone: [facility] Comment on above: Series: 11-23-2015 influenza, high dose seasonal, preservative-free Jame Barraza Work Phone: [facility] 10-20-2015 influenza nasal, unspecified formulation Deborah Ibarra RN [facility] 11-06-2014 influenza nasal, unspecified formulation Deborah Ibarra RN [facility] 11-06-2014 pneumococcal conjuga te vaccine, 13 valent Deborah Ibarra RN [facility] Payers Date Payer Category Payer Medicare [id number] 2022 Private Health Insurance [facility] [id number] 2022 Self-pay 2022 Medicare [id number] 2022 Medicare [id number] 1959 Medicare [id number] 1959 Private Health Insurance [facility] [id number] 1945 Unknown [id number] 2.840.1.097566.3.579.2.593 1945 Unknown [id number] 2.840.1.390026.3.579.2.593 1945 Unknown [id number] 2.840.1.282795.3.579.2.356 1945 Unknown [id number] 2.840.1.716544.3.579.2.356 1945 Unknown [id number] 2.840.1.653673.3.579.2.356 1945 Unknown [id number] 2.16840.1.169712.3.579.2.356 1945 Unknown [id number] 2.16840.1.332763.3.579.2.356 1945 Unknown [id number] 2.16840.1.846489.3.579.2.356 1945 Unknown [id number] 2.16840.1.177601.3.579.2.727 1945 Unknown [id number] 2.16.840.1.982456.3.579.2.727 1945 Unknown [id number] 2.16.840.1.411291.3.579.2.727 1945 Unknown [id number] 2.16.840.1.178412.3.579.2.727 1945 Unknown [id number] 2.16.840.1.978306.3.579.2.727 1945 Unknown [id number] 2.16.840.1.233325.3.579.2.1259 1945 Unknown [id number] 2.16.840.1.000256.3.579.2.1259 1945 Unknown [id number] 2.16.840.1.846104.3.579.2.1259 1945 Unknown [id number] 2.16.840.1.716184.3.579.2.1244 1945 Unknown [id number] 2.16.840.1.906190.3.579.2.1244 1945 Unknown [id number] 2.16.840.1.042617.3.579.2.196 1945 Unknown [id number] 2.16.840.1.762267.3.579.2.196 1945 Unknown [id number] 2.16.840.1.886263.3.579.2.196 1945 Unknown [id number] 2.16.840.1.760310.3.579.2.196 Private Health Insurance [facility] [id number] Unknown Unknown [id number] 2.16.840.1.145874.3.579.2.531 Social History Date Type Detail Facility Start: 01-08-2023 End: 01-09-2023 No alcohol use No alcohol use [facility] DO Work Phone: Comment on above: 1 cup of coffee edelmira y; former cigar smoker; Start: 10-21-2020 End: 06-26-2023 Tobacco smoking status Never smoked tobacco (finding) [facility] Start: 01-08-2023 End: 01-09-2023 Sex Assigned At Male [facility] Start: 1945 Sex Assigned At Male [facility] Tobacco smoking status [facility] Tobacco smoking consumption unknown [facility] Start: 1945 Sex Assigned At Not on file [facility] Start: 01-08-2023 Tobacco smoking status NHIS Ex-smoker [facility] Work Phone: History of tobacco use Current smoker [facility] Work Phone: History of tobacco use Cigar Smoker [facility] Work Phone: Start: 01-08-2023 End: 06-26-2023 Tobacco use and exposure Smokeless tobacco non-user [facility] Work Phone: Start: 01-09-2023 End: 06-26-2023 Alcohol intake Ex-drinker (finding) [facility] Work Phone: Start: 12-30-2022 End: 06-26-2023 Exposure to SARS-CoV-2 (event) Not sure [facility] Medical Equipment Procedure Code Equipment Code Equipment Origin al Text Equipment Identifier Dates CL STENT BISHOP FRONTIER 3.0 X 26 FDA Start: 08-20-2022 Femoral artery closure plug/patch, synthetic polymer ()[id number] FDA Start: 08-20-2022 Goals Date Patient Goal Desired Activity /State Functional Status Date Assessment Result Facility 08-26-2022 Functional Status N/A [facility] 08-22-2022 Functional status Patient at Baseline [facility] Work Phone: 10-27-2021 Functional Status N/A [facility] [place] Mental Status Date Assessment Result Facility 08-22-2022 Cognitive function Cognitive Sta tus Patient at Baseline [facility] Work Phone: Clinical Notes 10-27-2021 to 06-26-2023 Ashutosh Ling MD - 06/26/2023 3:10 PM EDTPatient InstructionsMomeño Ling MD - 01/09/2023 3:30 PM ESTPatient Instructions Note Date & Type Note Facility 06-26-2023 History of Present illness Narrative Subjective Olaf Briones is a 78 y.o. male Chief Complaint Follow-up HPI Patient is here for follow-up continue management for previous presentation with inferior wall myocardial infarction with known moderate disease of the LAD, hypertension, hyperlipidemia. He reported few months back he was having vague chest heaviness and shortness of breath. He was referred for a stress test that was clinically negative. His imaging showed fixed inferior defect and no ischemia. He did have abnormal EKG response to exercise but no chest pain. Patient described functional class I. He denies any recent complaint of chest pain, palpitation, lightheadedness, dizziness or syncope. He remains fairly active. His only complaint is mild fatigue Presentation with Assessment 1. Recent presentation with acute inferior wall myocardial infarction last year and PCI to the RCA with moderate disease of the LAD. He had complained of some vague chest heaviness few months back. His stress test was negative clinically and myocardial perfusion images just showed a small fixed inferior defect. He did have an abnormal EKG response to exercise which I suspect is falsely positive 2. Easy bruisability due to dual antiplatelet therapy seem to have improved with reducing the dose of aspirin 3. Hypertension controlled on home recording with component of whitecoat effect 4. Hyperlipidemia [facility] 5. Borderline abnormal EKG 6. Borderline overweight 7. Previous history of dizziness improved and no recurrence 8. Recent history of hematuria improved after TURP and removal of bladder stone 9. Fatigue probably due to beta-reynaldo Plan 1. I advised the patient to cut down his Coreg by half and advised him he can switch his Brilinta to Plavix 2. I told him if there is any recurrence of his hematuria we will consider either switching him to Plavix or discontinuation of aspirin down the road 3. We discussed risk factor modification 4. I advised him to continue phase 3 cardiac rehab 5. Follow-up in 6 months 6. I I advised him to notify me change in cardiac status or symptoms 7. I advised him to forward copy of his lab work is done through the [facility] system Review of Systems Cardiovascular: Positive for chest pain. All other systems reviewed and are negative. Vitals: 06/26/23 1502 BP: 120/68 BP Location: Left arm Patient Position: Sitting Pulse: 60 Weight: 78 kg (172 lb) Height: 1.727 m (5' 8 ) Objective Physical Exam Constitutional: Appearance: Normal appearance. HENT: Nose: Nose normal. Neck: Vascular: No carotid bruit. Cardiovascular: Rate and Rhythm: Normal rate. Pulses: Normal pulses. Heart sounds: Normal heart sounds. Pulmonary: Effort: Pulmonary effort is normal. Abdominal: General: Bowel sounds are normal. Palpations: Abdomen is soft. Musculoskeletal: General: Normal range of motion. Cervical back: Normal range of motion. Right lower leg: No edema. Left lower leg: No edema. Skin: General: Skin is warm and dry. Neurological: General: No focal deficit present. Mental Status: He is alert. Psychiatric: Mood and Affect: Mood normal. Behavior: Behavior normal. Thought Content: Thought content normal. Judgment: Judgment normal. Allergies Albuterol and Hydrochlorothiazide Current Medications Current Outpatient Medications: allopurinol (Zyloprim) 300 mg tablet, Take 1 tablet (300 mg) by mouth once daily., Disp: , Rfl: amLODIPine (Norvasc) 5 mg tablet, Take 1 tablet (5 mg) by mouth once daily., Disp: , Rfl: aspirin 81 mg EC tablet, Take 1 tablet (81 mg) by mouth every other day., Disp: 45 tablet, Rfl: 3 atorvastatin (Lipitor) 40 mg tablet, Take 1 tablet (40 mg) by mouth once daily., Disp: , Rfl: citalopram (CeleXA) 10 mg tablet, Take 1 tablet (10 mg) by mouth once daily., Disp: , Rfl: lisinopril 2.5 mg tablet, Take 1 tablet (2.5 mg) by mouth once daily., Disp: , Rfl: nitroglycerin (Nitrostat) 0.4 mg SL tablet, Place 1 tablet (0.4 mg) under the tongue. Place 1 tablet under the tongue every 5 minutes up to 3 doses as needed for chest pain. Call 911 if pain persists, Disp: , Rfl: carvedilol (Coreg) 3.125 mg tablet, Take 1 tablet (3.125 mg) by mouth 2 times a day with meals., Disp: 60 tablet, Rfl: 11 clopidogrel (Plavix) 75 mg tablet, Take 1 tablet (75 mg) by mouth once daily., Disp: 90 tablet, Rfl: 3 Assessment/Plan 1. Essential hypertension carvedilol (Coreg) 3.125 mg tablet 2. Arteriosclerotic cardiovascular disease Follow Up In Cardiology Follow Up In Cardiology clopidogrel (Plavix) 75 mg tablet carvedilol (Coreg) 3.125 mg tablet 3. Abnormal EKG Follow Up In Cardiology 4. Mixed hyperlipidemia Follow Up In Cardiology 5. Post PTCA 6. BMI 26.0-26.9,adult 7. Never smoked tobacco Scribe Attestation By signing my name below, IMandy LPN, Scribe attest that this documentation has been prepared under the direction and in the presence of Ashutosh Ling MD. Provider Attestation - Scribe documentation All medical record entries made by the Scribe were at my direction and personally dictated by me. I have reviewed the chart and agree that the record accurately reflects my personal performance of the history, physical exam, discussion and plan. documented in this encounter [facility] Work Phone: 06-26-2023 Instructions Mandy Munoz LPN - 06/26/2023 3:10 PM EDT Please bring all medicines, vitamins, and herbal supplements with you when you come to the office. Prescriptions will not be filled unless you are compliant with your follow up appointments or have a follow up appointment scheduled as per instruction of your physician. Refills should be requested at the time of your visit. BMI was above normal measurement. Current weight: 78 kg (172 lb) Weight change since last visit (-) denotes wt loss -4 lbs Weight loss needed to achieve BMI 25: 7.9 Lbs Weight loss needed to achieve BMI 30: -24.9 Lbs Provided instructions on dietary changes. Follow up 6 months Stop Brilinta when rx runs out. Start Plavix 75 mg Reduce Coreg 3.125 mg two times daily documented in this encounter [facility] Work Phone: 01-09-2023 History of Present illness Narrative Subjective [...] his lab work is done through the [employer] system Review of Systems Constitutional: Easy bruisability [...] 8. Easy bruisability documented in this encounter [facility] Work Phone: 01-09-2023 Instructions Travis Peter [...] of your visit. documented in this encounter [facility] Work Phone: 10-29-2022 Evaluation note Encounter Date Diagnosis Assessment Notes Oct, Impacted cerumen of both ears (ICD-10 - H61.23) Cerumen impaction home care material was printed Drink plenty fluids, get plenty of rest. Continue home medications as prescribed. Follow-up with your family physician for any further concerns [facility] Other 07-20-2023 Miscellaneous Notes* Telephone Encounter - [...] called in. The pharmacy is not at [facility]. I will need to call them when its done. Dr Koroma is asking why he is on flomax? Please advise. [facility] Misc[facility] Notes* Telephone Encounter - Deborah Ibarra RN - 09/04/2022 12:51 PM EDT PATIENT INFORMATION Record ID: [id number] Patient Name: [facility]: [facility] [place]: [facility] [place] Attending: David Andrews Center: Urology INSTRUCTIONS SN to remind patient of appointment date, time, location All Clear All Clear SURVEY INFORMATION Medical/Nurse Spreading Machine Operator: Deborah Ibarra 1. Your discharge instructions are [...] symptoms? (Standard Question) No [facility]23 NoteHNO ID: [id number] Author: Kathrin Dickerson RN Service: Care Management [...] Primary Care Physician Name/Phone: Jame Barraza MD [phone] Patient is medically stable for discharge, on RA, no dc needs. IMM provided on 08/30 by previous CM. Patients to discharge home. SIGNATURE: Kathrin Dickerson RN PATIENT NAME: Olaf Briones DATE: August 31, 2022 TIME: 9:40 AM CONTACT #: [phone] Note HNO ID: [id number] Author: Danyell Morris MD Service: Critical Care Author Type: Anesthesiologist Type: Progress Notes Filed: 08/31/2022 2:15 PM Note Text: SERVICE DATE: 08/31/2022 SERVICE TIME: 8:54 AM SURGICAL INTENSIVE CARE UNIT PROGRESS NOTE BRIEF HPI: Olaf Briones is a 77 year old male with PMHx of recent STEMI on 08/20/22 (s/p JUHI),HTN, HLD, DM, nephrolithiasis, transferred from [facility] for gross hematuria. He is now s/p [...] Primary and SICU discussed patient transfer to [facility]. 08/30:no acute events. Hemodynamically stable. 08/31: No acute events. HDS. Patient is doing well and ready for transfer/discharge per Urology. Subjective INTERVAL EVENTS: Improved Objective MEDICATIONS: Current medications and allergies reviewed. Recommended/planned medication changes discussed in detail in the A/P section below. Please refer to [facility] for list of inpatient medications. VITAL SIGNS: [...] aspirin and ticagrelor Coronary artery disease involving ewiiaapaayp coronary artery of ewiiaapaayp heart Assessment: STEMI on 08/19/2022 s/p JUHI [...] Antiplatelet Medications (From admiss (more content not included)...[facility]-14[facility]23 NoteHNO ID: [id number] Author: Prema Feliz MD Service: Urology Author Type: Resident Type: Progress Notes Filed: 08/31/2022 6:45 AM Note Text: [facility] UROLOGY PROGRESS NOTE Name: Olaf Briones Bed: H050 013/H050-13 Date: 08/31/2022 After Hours [facility] Urology Service Pager: [phone] ASSESSMENT AND PLAN Olaf Briones is a 77 year old male with PMHx of HTN, HLD, DM, recent STEMI (s/p JUHI, on Brillinta and ASA), nephrolithiasis s/p ESWL , BPH s/p TURP 2001, transferred from [facility] for gross hematuria. Currently with 18Fr 3-way catheter on CBI. Now 3 Days Post-Op s/p cystoscopy, clot evacuation, cystolitholapaxy, TURP. Admitted to SICU postoperatively due to pressor requirements and risk of hyponatremia due to length of TURP. 22Fr [address] hernandez placed introp, on traction and CBI. Transferred to [facility] 08/30. Interval: - AFVSS - Doing well, [...] Feliz MD PGY-2 Resident Physician Urology Pager: [phone] For weekend or after hours issues [place] [phone] SUBJECTIVE See above Objective OBJECTIVE Vital Signs BP 114/56 Pulse 61 Temp 36.9 ?C (98.4 ?F) (Oral) Resp 15 Ht 173 cm (5' 8.11 ) Wt 77.9 kg (171 lb 11.8 oz) SpO2 95% BMI 26.03 kg/m? Input and Output Intake/Output Summary (Last 24 hours) at 08/31/2022 0645 Last data filed at 08/31/2022 0600 Gross per 24 hour Intake 6174.7 ml Output 81118 ml Net -5325.3 ml Physical Exam GEN: [...] Feliz MD PGY-2 Resident Physician Urology Pager: [phone] For weekend or after hours issues please page [place] [phone] NoteHNO ID: [id number] Author: Danyell Morris MD Service: Critical Care Author Type: Anesthesiologist Type: Progress Notes Filed: 08/30/2022 3:36 PM Note Text: SERVICE DATE: 08/30/2022 SERVICE TIME: 3:25 PM SURGICAL INTENSIVE CARE UNIT PROGRESS NOTE BRIEF HPI: Olaf Briones is a 77 year old male with PMHx of recent STEMI on 08/20/22 (s/p JUHI),HTN, HLD, DM, nephrolithiasis, transferred from [facility] for gross hematuria. He is now s/p [...] Primary and SICU discussed patient transfer to [facility]. 08/30:no acute events. Hemodynamically stable. Subjective INTERVAL EVENTS: hemodynamically stable. Objective MEDICATIONS: Current medications and allergies reviewed. Recommended/planned medication changes discussed in detail in the A/P section below. Please refer to [facility] for list of inpatient medications. VITAL SIGNS: [...] Is Patient Clinically Ready to Transfer to [facility] or SDU?: Yes, transfer to SDU or [facility] today Discharge Planning: To be determined Prevention: [...] aspirin and ticagrelor Coronary artery disease involving ewiiaapaayp coronary artery of ewiiaapaayp heart Assessment: STEMI on 08/19/2022 s/p JUHI [...] Prophylaxis/Anticoagulants Anticoagulant AND Antiplatel (more content not included)...[facility] NoteHNO ID: [id number] Author: Prema Feliz MD Service: Urology Author Type: Resident Type: Progress Notes Filed: 08/30/2022 7:12 AM Note Text: [facility] UROLOGY PROGRESS NOTE Name: Olaf Briones Bed: H050 013/H050-13 Date: 08/30/2022 After Hours [facility] Urology Service Pager: [phone] ASSESSMENT AND PLAN Olaf Briones is a 77 year old male with PMHx of HTN, HLD, DM, recent STEMI (s/p JUHI, on Brillinta and ASA), nephrolithiasis s/p ESWL , BPH s/p TURP 2001, transferred from [facility] for gross hematuria. Currently with 18Fr 3-way catheter on CBI. Now 2 Days Post-Op s/p cystoscopy, clot evacuation, cystolitholapaxy, TURP. Admitted to SICU postoperatively due to pressor requirements and risk of hyponatremia due to length of TURP. 22Fr [address] hernandez placed introp, on traction and CBI. Awaiting bed on [facility]. Interval: - Afebrile, SBPs 110s - Doing [...] Feliz MD PGY-2 Resident Physician Urology Pager: [phone] For weekend or after hours issues [place] [phone] SUBJECTIVE See above Objective OBJECTIVE Vital Signs BP 111/56 Pulse 61 Temp 36.7 ?C (98.1 ?F) (Axillary) Resp 12 Ht 173 cm (5' 8.11 ) Wt 84 kg (185 lb 3 oz) SpO2 96% BMI 28.07 kg/m? Input and Output Intake/Output Summary (Last 24 hours) at 08/30/2022 0558 Last data filed at 08/30/2022 0500 Gross per 24 hour Intake 6400 ml Output 97943 ml Net -4150 ml Physical Exam GEN: Alert, NAD EYES: Anicteric CV: Warm and well perfused LUNGS: Unlabored breathing on RA ABD: Soft, appropriately tender : Hernandze catheter present Labs Recent Labs 08/30/22 0021 [...] Feliz MD PGY-2 Resident Physician Urology Pager: [phone] For weekend or after hours issues please page the [place] [phone]07-12-2023 NoteHNO ID: [id number] Author: Ary Frazier RN Service: Care Management [...] patient for transition of care/discharge planning. SIGNATURE: Ayr Frazier RN PATIENT NAME: Olaf Briones DATE: August 29, 2022 TIME: 12:11 PM PAGER/CONTACT #: [phone]07-12-2023 NoteHNO ID: [id number] Author: Danyell Morris MD Service: Critical Care Author Type: Anesthesiologist Type: Progress Notes Filed: 08/29/2022 3:08 PM Note Text: SERVICE DATE: 08/29/2022 SERVICE TIME: 11:28 AM SURGICAL INTENSIVE CARE UNIT PROGRESS NOTE BRIEF HPI: Olaf Briones is a 77 year old male with PMHx of recent STEMI on 08/20/22 (s/p JUHI),HTN, HLD, DM, nephrolithiasis, transferred from [facility] for gross hematuria. He is now s/p [...] Primary and SICU discussed patient transfer to [facility]. Subjective INTERVAL EVENTS: Improved Objective MEDICATIONS: Current medications and allergies reviewed. Recommended/planned medication changes discussed in detail in the A/P section below. Please refer to [facility] for list of inpatient medications. VITAL SIGNS: [...] Is Patient Clinically Ready to Transfer to [facility] or SDU?: Yes, transfer to SDU or [facility] today Discharge Planning: To be determined Prevention: [...] aspirin and ticagrelor Coronary artery disease involving ewiiaapaayp coronary artery of ewiiaapaayp heart Assessment: STEMI on 08/19/2022 s/p JUHI [...] Urology AND SICU ok for transfer to [facility] Medication and Non-Pharmacologic VTE Prophylaxis/Anticoagulants Anticoagulant AND Antiplatelet Medica (more content not included)...[facility]07-12-2023 NoteHNO ID: [id number] Author: David Andrews MD Service: Urology Author Type: Physician Type: Progress Notes Filed: 08/29/2022 7:09 PM Note Text: [facility] UROLOGY PROGRESS NOTE Name: Olaf Briones Bed: H050 013/H050-13 Date: 08/29/2022 After Hours [facility] Urology Service Pager: [phone] ASSESSMENT AND PLAN Olaf Briones is a 77 year old male with PMHx of HTN, HLD, DM, recent STEMI (s/p JUHI, on Brillinta and ASA), nephrolithiasis s/p ESWL remote, BPH s/p TURP 2001, transferred from [facility] for gross hematuria. Currently with 18Fr 3-way [...] EF 55% -Encourage IS -Continue telemetry on [facility] #GI - -Diet: Regular diet -Colace, Zofran [...] - routine #Disposition - pending course, to [facility] today if SICU agrees it is appropriate. [...] Feliz MD PGY-2 Resident Physician Urology Pager: [phone] For weekend or after hours issues [place] [phone] CHIEF RESIDENT ADDENDUM POD#1 s/p cysto, TURP, [...] 08/29/2022 0700 Gross per 24 hour Intake 61187.5 ml Output 88297 ml Net 5853.5 ml Gen: No apparent [...] recs Gt Mcgowan MD Resident PGY-6 Urology [facility] [place] [facility] Please page Dr. Feliz with any [...] 08/29/2022 0700 Gross per 24 hour Intake 28807.5 ml Output 95497 ml Net 5853.5 ml Physical Exam GEN: Alert, NAD EYES: Anicteric CV: Warm and well perfused LUNGS: Unlabored breathing on RA ABD: Soft, appropriately tender : Hernandez catheter present Labs Recent Labs 08/29/22 0323 08/29/22 0242 08/28/22 2128 WBC 13.57* 11.86* 16.02* HB 10.6* 9.1* 12.1* HCT 30.7* 25.7* 35.7* PLT 159 138* 179 NA 136 137 139 K 4.1 4.0 4.2 CHLOR 102 103 105 CO2 22 20* 24 BUN 14 12 14 CREAT 0.69* 0.64* 0.76 GLUC 202* 186* 147* Imaging Reviewed Prema Feliz MD PGY-2 Resident Physician Urology Pager: [phone] For weekend or after hours issues [place] [phone] [facility] STAFF PHYSICIAN NOTE OF PERSONAL INVOLVEMENT IN CARE I have reviewed the progress note obtained and documented by the resident (more content not included)...[facility]07-11-2023 NoteHNO ID: [id number] Author: Molly Rosado APRN.PROCUREMENT ACCOUNTANT Service: ? Author Type: Nurse Bill Of Materials Clerk Type: Anesthesia Procedure Notes Filed: 08/28/2022 7:27 PM Note Text: ANESTHESIOLOGY PROCEDURE NOTE PIV General Information Procedure Start Time/Medication Administration: 08/28/2022 7:26 PM Staffing PROCUREMENT ACCOUNTANT: Molly Rosado APRN.CRNA Preparation Sterility Preparation: hand [...] August 28, 2022 TIME: 7:26 PM CSN: [id number] Hospital07-11-2023 NoteHNO ID: [id number] Author: Molly Rosado APRN.CRNA Service: ? Author Type: Nurse Bill Of Materials Clerk Type: Anesthesia Procedure Notes Filed: 08/28/2022 6:31 PM Note Text: ANESTHESIOLOGY PROCEDURE NOTE Airway General Information Procedure Start Time/Medication Administration: 08/28/2022 6:10 PM Patient location during procedure: OR Timeout Performed Pre-procedure: timeout performed Consent Obtained: Yes Patient identity confirmed: arm band and patient Staffing PROCUREMENT ACCOUNTANT: Molly Rosado APRN.CRNA Indications and Patient Condition [...] August 28, 2022 TIME: 6:31 PM CSN: [id number] Hospital07-11-2023 NoteHNO ID: [id number] Author: Prema Feliz MD Service: Urology Author Type: Resident Type: Progress Notes Filed: 08/28/2022 9:47 PM Note Text: [facility] UROLOGY PROGRESS NOTE Name: Olaf Briones Bed: H050 013/H050-13 Date: 08/28/2022 After Hours [facility] Service Pager: [phone] ASSESSMENT AND PLAN Olaf Briones is a 77 year old male with PMHx of HTN, HLD, DM, recent STEMI (s/p JUHI, on Brillinta and ASA), nephrolithiasis s/p ESWL , BPH s/p TURP 2001, transferred from [facility] for gross hematuria. Currently with 18Fr 3-way [...] Feliz MD PGY-2 Resident Physician Urology Pager: [phone] For weekend or after hours issues please [place] [phone] SUBJECTIVE See above Objective OBJECTIVE Vital Signs BP 112/52 Pulse 69 Temp 36.9 ?C (98.4 ?F) (Oral) Resp 18 Ht 173 cm (5' 8.11 ) Wt 75.5 kg (166 lb 7.2 oz) SpO2 97% BMI 25.23 kg/m? Input and Output Intake/Output Summary (Last 24 hours) at 08/28/20221955 Last data filed at 08/28/2022 1830 Gross per 24 hour Intake 43743 ml Output 38674 ml Net -1875 ml Physical Exam GEN: [...] Feliz MD PGY-2 Resident Physician Urology Pager: [phone] For weekend or after hours issues please page the [place] urology [place]ager [place] [phone] NoteHNO ID: [id number] Author: Prema Feliz MD Service: Urology Author Type: Resident Type: Progress Notes Filed: 08/28/2022 8:02 AM Note Text: [facility] UROLOGY PROGRESS NOTE Name: Olaf Briones Bed: H050 013/H050-13 Date: 08/28/2022 After Hours [facility] Urology Service Pager: [phone] ASSESSMENT AND PLAN Olaf Briones is a 77 year old male with PMHx of HTN, HLD, DM, recent STEMI (s/p JUHI, on Brillinta and ASA), nephrolithiasis s/p ESWL remote, BPH s/p TURP 2001, transferred from [facility] for gross hematuria. 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 Input and Output Intake/Output Summary (Last 24 hours) at 08/28/2022 07 Last data filed at 08/28/2022 0716 Gross per 24 hour Intake 53713.5 ml Output 31706 ml Net -59532.5 ml Physical Exam GEN: Alert, NAD EYES: Anicteric CV: Warm and well perfused LUNGS: Unlabored breathing on RA ABD: Soft, appropriately tender : Hernandez catheter present Labs Recent Labs 08/27/22 0710 WBC 16.24* HB 13.4 HCT 38.5* PLT 214 NA 140 K 4.3 CHLOR 105 CO2 22 BUN 17 CREAT 0.79 GLUC 197* Imaging Reviewed Prema Feliz MD PGY-2 Resident Physician Urology Pager: [phone] For weekend or after hours issues please page the [place] [phone] NoteHNO ID: [id number] Author: Naomy Adkins MD Service: Urology Author [...] antispasmodics (ditropan, belladonna and opium suppositories, levsin, etc).[facility]07[facility]09[facility] Evaluation + Plan noteExtracted from: Title:Urology [...] had a stent placed last saturday at [facility]. sees dr ivory Thank for consultation on [...] BPH with urinary obstruction / SNOMED CT 9214329062 / Confirmed Kidney stone / SNOMED CT 732739499 / Confirmed Weak urinary stream / SNOMED CT 414132831 / Confirmed Microscopic hematuria / SNOMED CT 743466597 / Confirmed Diabetes / SNOMED CT 107587066 / Confirmed Hypertension / SNOMED CT 1577296861 / Confirmed Prostatitis / SNOMED CT 83843390 / Confirmed BPH without urinary obstruction / SNOMED CT 7900734464 / Confirmed Gross hematuria / SNOMED CT 865060616 / Confirmed Asymptomatic microscopic hematuria / SNOMED CT 3849495359 / Confirmed, Active Problems (10) Asymptomatic microscopic hematuria BPH with urinary obstruction BPH without urinary obstruction Diabetes Gross hematuria Hypertension Kidney stone Microscopic hematuria Prostatitis Weak urinary stream Histories Past Medical History: No active or resolved past medical history items have been selected or recorded. Family History: Hypertension Father Procedure history: Cystoscopy (65157112) on 08/18/2013 at 68 Years. Comments: 10/02/2018 16:11 EDT - Katie Rogers MA 11/08/200904/2006 TURP - Transurethral resection of prostate (910037219) in 2006 at 61 Years. Urodynamics (233523500) in 2006 at 61 Years. Transrectal biopsy of prostate using ultrasound (US) guidance (7221866123) in 2005 at 60 Years. ESWL - Extracorporeal shockwave lithotripsy for renal calculus (184701137) in 2000 at 55 Years. Comments: 10/02/2018 [...] Normal range of motion. Integumentary: Warm, Dry, [place]. Neurologic: Alert, Oriented, Normal sensory. Psychiatric: Cooperative, [...] % HI Lymph Auto 6.1 % LOW Webster Auto 4.9 % Eos Auto 0.9 % Basophil Auto 0.5 % Neutro Absolute 13.5 E9/L HI Lymph Absolute 0.9 E9/L LOW Webster Absolute 0.8 E9/L Eos Absolute 0.1 E9/L [...] and Plan Diagnosis Abnormal CT scan, bladder (VQZ28-CR R93.41, Working, Medical). Anticoagulated by anticoagulation treatment (TVK43-VS Z79.01, Working, Medical). BPH with obstruction/lower urinary tract symptoms (GWS59-BS N40.1, Working, Medical). Gross hematuria (THS91-VY R31.0, Discharge, Medical). S/P TURP (status post transurethral resection of prostate) (FFD68-LL Z90.79, Working, Medical). Urinary retention (OFJ26-QZ R33.9, Discharge, Medical). Course: Worsening, Viewed CT [...] do not currently have available here at [facility] continuously. I discussed this extensively with the [...] 08:30:00 AM Scheduled Provider:Shanna IVORY MD Location:[facility] Appointment Type:URO Office Visit [facility]07-05-2023 Hospital Discharge instructions Additional Instructions [...] doctor or pharmacist, without first calling the supervisor frame sample and pattern who implanted the stent. If you require [...] weight lifting, stair steppers, etc. until the supervisor frame sample and pattern approves these activities. Check with the supervisor frame sample and pattern on your first follow-up visit. CALL YOUR PHYSICIAN at [phone]: -If bleeding should occur from the catheter insertion site- apply pressure to the site then immediately call us. -Report any fever, redness, drainage, increased swelling, or firmness at the catheter insertion site. Some bruising or slight swelling may be present at the time of discharge. -Should arm or leg become cold, numb, white, or blue, contact the supervisor frame sample and pattern immediately. -IF you should experience episodes of [...] is recommended. Please call Central Scheduling at [phone] to schedule your appointment.] The attending supervisor frame sample and pattern or [facility] nurse clinician should provide you with specific instructions regarding activity, diet, medications, and further follow up for you. Follow the medication instructions provided on your discharge. If the dosages and instructions on this sheet differ from the dosage and instructions on the bottle, follow the instructions on the bottle. [facility] is not responsible for incorrect prescription information provided by the patient during their visit. Do not stop your medications without consulting your health care provider. Please take the list with you to your next doctor's appointment.[facility] Work Phone: 1(455) 685-775907-04-2023 Consult note Author Juanito Barney [facility] August 21, 2022 11:41am Note Date/Time August 21, 2022 11:41 am [facility] [address] [place], [place] [address] Pulmonology Consult Note Signed Patient: Olaf Briones MR#: [id number] : 1945 Acct:[id number] Age/Sex: 77 / M Adm Date: 3 Loc: 4C Room: 6R5847-3 Type: REG SDC Attending Dr: Steven Zamora [...] ST elevation in the inferior lateral leads. Chemistry Instructor was activated, patient received PCI to RCA. [...] 08/21/22 10:00 08/21/22 10:00 08/21/22 10:00 Narrative: SNAP ATTACHER: Alert and oriented x3. No focal deficits. [...] elevation GA along with complete heart block. Chemistry Instructor was activated, patient received PCI to RCA. Patient is currently doing much better with no signs or symptoms of heart block,he is on room air. Optimizing cardiac meds as per cardiology. Glycemic control DVT prophylaxis Discussed with nursing staff Documented By: Juanito Barney MD 08/21/22 113 6 Signed By: <Electronically signed by Juanito Barney MD> 08/21/22 1141 [facility] Work Phone: 1(552) 684-499307-04-2023 Progress note Author Elpidio Andres [facility] August 21, 2022 8:11am Note Date/Time August 21, 2022 8:11a m [facility] [address] [place] [address] Cardiology Progress Note Signed Patient: Olaf Briones MR#: [id number] : 1945 Acct:[id number] Age/Sex: 77 / M Adm Date: 3 Loc: Room: [address] [place] [address] Type: REG SDC Attending Dr: Steven Zamora [...] % (Auto) 64.1 Lymph % (Auto) 26.2 Webster % (Auto) 7.9 Eos % (Auto) 1.3 Baso % (Auto) 0.5 Nucleat RBC Rel Count 0.1 Neut # (Auto) 6.9 Lymph # (Auto) 2.8 Webster # (Auto) 0.9 H Eos # (Auto) [...] MPV Neut % (Auto) Lymph % (Auto) Webster % (Auto) Eos % (Auto) Baso % (Auto) Nucleat RBC Rel Count Neut # (Auto) Lymph # (Auto) Webster # (Auto) Eos # (Auto) Baso # [...] MPV Neut % (Auto) Lymph % (Auto) Webster % (Auto) Eos % (Auto) Baso % (Auto) Nucleat RBC Rel Count Neut # (Auto) Lymph # (Auto) Webster # (Auto) Eos # (Auto) Baso # (Auto) Monocyte Dist Width PT INR APTT PHA Creatinine Clear Sodium Potassium Chloride Carbon Dioxide Anion Gap BUN Creatinine Est GFR (CKD-EPI) Glucose Calcium Total Creatine Kinase Troponin I High Sens 9010.4 H* 23425.3 H* 23452.9 H* B-Natriuretic Peptide Triglycerides Cholesterol LDL Cholesterol, Calc VLDL Cholesterol HDL Cholesterol Cholesterol/HDL Ratio 0708/21/22 08/21/22 05:30 05:30 05:30 Corrected WBC 13.6 H Uncorrected WBC Count 13.6 H RBC 4.66 Hgb 14.6 Hct 42.7 MCV 91.6 MCH 31.4 MCHC 34.3 RDW 13.5 Plt Count 171 MPV 9.5 Neut % (Auto) 85.4 Lymph % (Auto) 8.2 Webster % (Auto) 6.1 Eos % (Auto) 0.1 Baso % (Auto) 0.2 Nucleat RBC Rel Count 0.0 Neut # (Auto) 11.7 H Lymph # (Auto) 1.1 Webster # (Auto) 0.8 Eos # (Auto) 0.0 Baso # (Auto) 0.0 Monocyte Dist Width PT INR APTT PHA Creatinine Clear 74.81 Sodium 138 Potassium 3.8 Chloride 103 Carbon Dioxide 27.1 Anion Gap 11.7 BUN 12 Creatinine 0.71 Est GFR (CKD-EPI) > 60.0 Glucose 162 H Calcium 9.4 Total Creatine Kinase Troponin I High Sens 77979.9 H* B-Natriuretic Peptide Triglycerides 124 Cholesterol 132 [...] evolution today [facility] ([facility]) Heart block: Assessment/Problem Details: Resolved with synagogue of flow to the dominant right coronary artery with primary PCI and drug-eluting stent placement. Code(s): I45.9 - Conduction disorder, unspecified Status: Acute Plan Plan as above. Disposition to home likely 24 hours. Phase 2 monitor cardiac rehabilitation is strongly recommended. Time spent with patient Time Spent With Patient (min): 20 Documented By: Elpidio Andres MD 08/21/2207 Signed By: <Electronically signed by Elpidio Andres MD> 08/21/2211 [facility] Work Phone: [phone]) 858-929207-03-2023 History and physical note Author Steven Zamora [facility] August 20, 2022 6:29pm Note Date/Time August 20, 2022 6:24p m [facility] [address] [place] [address] Cardiology H&P Signed with Addenda Patient: Olaf Briones MR#: [id number] : 1945 Acct:[id number] Age/Sex: 77 / M Adm Date: 3 Loc: Room: [address] [place] [address] Type: REG SDC Attending Dr: Steven Zamora DO Copies to: NON STAFF Steven Zamora DO~ ADDENDUM1 Impression: Inferolateral STEMI with change in complete heart block Plan: Proceed with emergent cath and PCI. A total of 60 minutes nonprocedural critical care time were devoted to the ER staff, review of ECG, Chemistry Instructor staff, nursing staff, both patient and family [...] Discussed case with ER attending, reviewed ECGs; Chemistry Instructor team activated, half amp of atropine ordered in addition to routine upstream antiplatelet and Antithrombin therapies. Patient arrived at the Chemistry Instructor at 1659 underwent first balloon activation at [...] and no additional complaints, except as documented [facility] Medical History (Updated 08/20/22 @ 16:41 [...] x10E3/uL Lymph # (Auto) 2.8 (1.00-4.8) x10E3/uL Webster # (Auto) 0.9 H (0.0-0.8) x10E3/uL Eos [...] APTT 25.1 Documented By: Steven Zamora DO 08/20/22 7710 Signed By: <Electronically signed by Steven Zamora DO> 08/20/22 1827 [facility] Work Phone: 1(517) 361-625707-03-[address] [facility] [facility] [facility] Procedure [address] [facility]07-03-2023 History general Narrative - Reported * Type Description Date Surgical History TURP 2022 Hospitalization History heart attack august 20 2022 [facility] Other 09-09-2022 Hospital Discharge instructions Patient Education [...] urethra. Follow these instructions at home: Take caaw-twv-zqostgt and prescription medicines only as told by [...] 02/04/2006 Document Revised: 12/30/2018 Document Reviewed: 03/11/2017 [employer] Patient Education 2020 [employer]. Follow Up Care 10/21/2020 08:48:14 With:CACHORRO HAHN, Shanna Sánchez, URL Address: [address] [place] [address]- When: Unknown [facility] consult note Author Juanito Barney [facility] August 21, 2022 11:41am Note Date/Time August 21, 2022 11:41 am [facility] [address] [place] [address] Pulmonology Consult Note Signed Patient: Olaf Briones MR#: [id number] : 1945 Acct:[id number] Age/Sex: 77 / M Adm Date: 3 Loc: Room: [address] [place] [address] Type: REG SDC Attending Dr: Steven Zamora [...] ST elevation in the inferior lateral leads. Chemistry Instructor was activated, patient received PCI to RCA. [...] 08/21/22 10:00 08/21/22 10:00 08/21/22 10:00 Narrative: SNAP ATTACHER: Alert and oriented x3. No focal deficits. [...] elevation GA along with complete heart block. Chemistry Instructor was activated, patient received PCI to RCA. Patient is currently doing much better with no signs or symptoms of heart block,he is on room air. Optimizing cardiac meds as per cardiology. Glycemic control DVT prophylaxis Discussed with nursing staff Documented By: Juanito Barney MD 08/21/22 113 6 Signed By: <Electronically signed by Juanito Barney MD> 08/21/22 1141 [facility] Work Phone: Discharge summary Author Steven Zamora [facility] August 22, 2022 3:21pm Note Date/Time August 22, 2022 3:17p m [facility] [address] [place] [address] Discharge Summary Signed Patient: Olaf Briones MR#: [id number] : 1945 Acct:[id number] Age/Sex: 77 / M Adm Date: 3 Loc: Room: [address] [place] [address]: Steven Zamora DO Copies to: [...] % (Auto) 72.5, Lymph % (Auto) 15.9, Webster % (Auto) 9.7, Eos % (Auto) 1.6, Baso % (Auto) 0.3, Nucleat RBC Rel Count 0.1, Neut # (Auto) 6.4, Lymph # (Auto) 1.4, Webster # (Auto) 0.9 H, Eos # (Auto) [...] doctor or pharmacist, without first calling the supervisor frame sample and pattern who implanted the stent. If you require [...] weight lifting, stair steppers, etc. until the supervisor frame sample and pattern approves these activities. Check with the supervisor frame sample and pattern on your first follow-up visit. CALL YOUR PHYSICIAN at [phone]: -If bleeding should occur from the catheter insertion site- apply pressure to the site then immediately call us. -Report any fever, redness, drainage, increased swelling, or firmness at the catheter insertion site. Some bruising or slight swelling may be present at the time of discharge. -Should arm or leg become cold, numb, white, or blue, contact the supervisor frame sample and pattern immediately. -IF you should experience episodes of [...] is recommended. Please call Central Scheduling at [phone] to schedule your appointment.] The attending supervisor frame sample and pattern or [facility] nurse clinician should provide you with specific instructions regarding activity, diet, medications, and further follow up for you. Follow the medication instructions provided on your discharge. If the dosages and instructions on this sheet differ from the dosage and instructions on the bottle, follow the instructions on the bottle. [facility] is not responsible for incorrect [...] 08/22/22 1516 Signed By: <Electronically signed by Stevne Zamora DO> 08/22/22 1521 [facility] Work Phone: Evaluation + Plan note Future Appointments Appointment Date:11/02/2022 08:30:00 AM Scheduled Provider:Shanna IVORY MD Location:[facility] Appointment Type:URO Office Visit [facility] evaluation note* Diagnosis Onset Date Resolution Status Heart block acute ST elevation (STEMI) myocardial infarction acute Syncope acute [facility] Work Phone: Evaluation note* Diagnosis Arteriosclerotic cardiovascular disease- Primary Unspecified cardiovascular disease Abnormal EKG Nonspecific abnormal electrocardiogram (ECG) (EKG) Mixed hyperlipidemia Primary hypertension Unspecified essential hypertension Post PTCA Postsurgical percutaneous transluminal coronary angioplasty status Essential hypertension Unspecified essential hypertension BMI 26.0-26.9,adult Easy bruisability Other symptoms involving skin and integumentary tissues documented in this encounter [facility] Work Phone: Evaluation note* Diagnosis Essential hypertension- Primary Unspecified essential hypertension Arteriosclerotic cardiovascular disease Unspecified cardiovascular disease Abnormal EKG Nonspecific abnormal electrocardiogram (ECG) (EKG) Mixed hyperlipidemia Post PTCA Postsurgical percutaneous transluminal coronary angioplasty status BMI 26.0-26.9,adult Never smoked tobacco documented in this encounter [facility] Work Phone: History and physical note Author Steven Zamora [facility] August 20, 2022 6:29pm Note Date/Time August 20, 2022 6:24p m [facility] [address] [place] [address] Cardiology H&P Signed with Addenda Patient: Olaf Briones MR#: [id number] : 1945 Acct:[id number] Age/Sex: 77 / M Adm Date: 3 Loc: Room: [address] [place] [address] Type: REG SDC Attending Dr: Steven Zamora DO Copies to: NON STAFF Steven Zamora DO~ ADDENDUM1 Impression: Inferolateral STEMI with change in complete heart block Plan: Proceed with emergent cath and PCI. A total of 60 minutes nonprocedural critical care time were devoted to the ER staff, review of ECG, Chemistry Instructor staff, nursing staff, both patient and family [...] Discussed case with ER attending, reviewed ECGs; Chemistry Instructor team activated, half amp of atropine ordered in addition to routine upstream antiplatelet and Antithrombin therapies. Patient arrived at the Chemistry Instructor at 1659 underwent first balloon activation at [...] and no additional complaints, except as documented [facility] Medical History (Updated 08/20/22 @ 16:41 [...] x10E3/uL Lymph # (Auto) 2.8 (1.00-4.8) x10E3/uL Webster # (Auto) 0.9 H (0.0-0.8) x10E3/uL Eos [...] <Electronically signed by Steven Zamora DO> 08/20/221826 [facility] Work Phone: History of Present illness [...] notify me with change in cardiac status -[facility] DO Work Phone: History [...] notify me with change in cardiac status -[facility] 250 DO Work Phone: History [...] he developed hematuria ultimately went to the [facility] where he underwent TURP and [...] me change in cardiac status or symptoms [facility] 250 DO Work Phone: Hospital course Narrative No data available for this section [facility] Discharge instructions No data available for this section [facility] No data available for this section [facility] progress note Author Elpidio Andres [facility] August 21, 2022 8:11am Note Date/Time August 21, 2022 8:11a m [facility] [address] [place] [address] Cardiology Progress Note Signed Patient: Olaf Briones MR#: [id number] : 1945 Acct:[id number] Age/Sex: 77 / M Adm Date: 3 Loc: Room: [address] [place] [address] Type: REG SDC Attending Dr: Steven Zamora [...] % (Auto) 64.1 Lymph % (Auto) 26.2 Webster % (Auto) 7.9 Eos % (Auto) 1.3 Baso % (Auto) 0.5 Nucleat RBC Rel Count 0.1 Neut # (Auto) 6.9 Lymph # (Auto) 2.8 Webster # (Auto) 0.9 H Eos # (Auto) [...] MPV Neut % (Auto) Lymph % (Auto) Webster % (Auto) Eos % (Auto) Baso % (Auto) Nucleat RBC Rel Count Neut # (Auto) Lymph # (Auto) Webster # (Auto) Eos # (Auto) Baso # [...] MPV Neut % (Auto) Lymph % (Auto) Webster % (Auto) Eos % (Auto) Baso % (Auto) Nucleat RBC Rel Count Neut # (Auto) Lymph # (Auto) Webster # (Auto) Eos # (Auto) Baso # (Auto) Monocyte Dist Width PT INR APTT PHA Creatinine Clear Sodium Potassium Chloride Carbon Dioxide Anion Gap BUN Creatinine Est GFR (CKD-EPI) Glucose Calcium Total Creatine Kinase Troponin I High Sens 9010.4 H* 16849.3 H* 50687.9 H* B-Natriuretic Peptide Triglycerides Cholesterol LDL Cholesterol, Calc VLDL Cholesterol HDL Cholesterol Cholesterol/HDL Ratio 08/21/22 08/21/22 08/21/22 05:30 05:30 05:30 Corrected WBC 13.6 H Uncorrected WBC Count 13.6 H RBC 4.66 Hgb 14.6 Hct 42.7 MCV 91.6 MCH 31.4 MCHC 34.3 RDW 13.5 Plt Count 171 MPV 9.5 Neut % (Auto) 85.4 Lymph % (Auto) 8.2 Webster % (Auto) 6.1 Eos % (Auto) 0.1 Baso % (Auto) 0.2 Nucleat RBC Rel Count 0.0 Neut # (Auto) 11.7 H Lymph # (Auto) 1.1 Webster # (Auto) 0.8 Eos # (Auto) 0.0 Baso # (Auto) 0.0 Monocyte Dist Width PT INR APTT PHA Creatinine Clear 74.81 Sodium 138 Potassium 3.8 Chloride 103 Carbon Dioxide 27.1 Anion Gap 11.7 BUN 12 Creatinine 0.71 Est GFR (CKD-EPI) > 60.0 Glucose 162 H Calcium 9.4 Total Creatine Kinase Troponin I High Sens 07128.9 H* B-Natriuretic Peptide Triglycerides 124 Cholesterol 132 [...] evolution today [facility] (2) Heart block: Assessment/Problem Details: Resolved with synagogue of flow to the dominant right coronary [...] signed by Elpidio Andres MD> 08/21/22 0811 [facility] Work Phone: Reason for referral (narrative)* Consultation (Routine) - Authorized Specialty Diagnoses / Procedures Referred By Contac t Referred To Contact Cardiology Diagnoses Arteriosclerotic cardiovascular disease Abnormal EKG Mixed hyperlipidemia Procedures Follow Up In Cardiology Ashutosh Ling MD [address] [facility] 2, [address] [place] [address] Ashutosh Ling MD [address] [facility] [address], [address] [place] [address] Referral ID Status Reason Start Date Expiration Date V isits Requested Visits Authorized [id number] Authorized 01/09/2023 01/09/2024 1 1 [facility] Work Phone: Reason for referral (narrative)* Consultation (Routine) - Authorized Specialty Diagnoses / Procedures Referred By Mellissa shin Referred To Contact Cardiology Diagnoses Arteriosclerotic cardiovascular disease Procedures Follow Up In Cardiology Ashutosh Ling MD 703 [facility] 2, [address] [address] Ashutosh Ling MD [address] [place] [address] [address], [address] [address] Referral ID Status Reason Start Date Expiration Date V isits Requested Visits Authorized [id number] Authorized 06/26/2023 06/25/2024 1 1 [facility] Work Phone: Family History No Family [...] Patient Update Reason Comments Follow-up 4 month Reason Comments Follow-up 6m Specialty Diagnoses / Procedures Referred By Contdotty t Referred To Contact Cardiology Diagnoses Arteriosclerotic cardiovascular disease Abnormal EKG Mixed hyperlipidemia Procedures Follow Up In Cardiology Ashutosh Ling MD 7[address] [facility] [address], [address] [address] Ashutosh Ling MD 703 [facility] 2, [address] [address] [place] [address] Referral ID Status Reason Start Date Expiration Date V isits Requested Visits Authorized [id number] Authorized 01/09/2023 01/09/2024 1 1 Care Team (unrecognized sect ion and content) Team Status: Active Member Role Status Dates NON STAFF Primary Care Provider Active Team Status: Inactive Member Role Status Dates NON STAFF Primary Care Provider Active Shannon Cochran DO Emergency Provider Active Steven Zamora , DO Admit Provider, Attending Provide r Active Juanito Barney MD Other Provider Active Team Status: Active Member Role Status Dates NON STAFF Primary Care Provider Active Shannon Cochran , Emergency Provider Active W Steve Zamora , DO Attending Provider Active [employer] Relationship Specialty Start Date End Date Jame Barraza MD [address], [place] [id number] PCP - General Family Medicine 08/31/22 [employer] Relationship Specialty Start Date End Date Jame Barraza MD [address] [phone] PCP - General Family Medicine 08/31/22 [employer] Relationship Specialty Start Date End Date Ashutosh Ling MD [address] [facility] [address], [address] [place], [place] [id number] PCP - [employer] PCP 08/18/22 Dav Peguero MD [address] [facility] [address] [place] [address] PCP - General Family Medicine 01/09/23 [employer] Relationship Specialty Start Date End Date Dav Peguero MD PCP - General Family Medicine 01/09/23 (unrecognized sect ion and content) No Status Records FoundNo Status Records FoundNo Status Records FoundNo Status Records FoundNo Status Records FoundNo Status Records FoundNo Status Records FoundNo Status Records FoundNo Status Records Found INFORMATION SOURCE (unrecogn ized section and content) DATE CREATED AUTHOR 11/15/2021 [facility] DATE CREATED AUTHOR AUTHOR'S ORGANIZ ATION 09/01/2022 [facility] DATE CREATED AUTHOR AUTHOR'S ORGANIZ ATION 09/06/2022 [employer] DATE CREATED AUTHOR AUTHOR'S ORGANIZ ATION 09/07/2022 [facility] DATE CREATED AUTHOR AUTHOR'S ORGANIZ ATION 10/10/2022 [facility] ical Center DATE CREATED AUTHOR AUTHOR'S ORGANIZ ATION 11/27/2022 [facility] DATE CREATED AUTHOR AUTHOR'S ORGANIZ ATION 06/19/2023 [facility] EPIC DATE CREATED AUTHOR AUTHOR'S ORGANIZ ATION 06/28/2023 [facility] DATE CREATED AUTHOR AUTHOR'S ORGANIZ ATION 08/01/2023 [facility] Goals (unrecognized section and content) Goals may be documented in a n alternate section Source Comments (unrecognize d section and content) In the event this informatio n is protected by the Federal Confidentiality of Alcohol and Drug Abuse Patient Records regulations: The Federal rules restrict any use of the information to criminally investigate or prosecute any alcohol or drug abuse patient.[facility] the event this information is protected by the Federal Confidentiality of Alcohol and Drug Abuse Patient Records regulations: The Federal rules restrict any use of the information to criminally investigate or prosecute any alcohol or drug abuse patient.[facility] FOR RECORDS PERTAINING TO PATIENTS WHO [...] BE BASED ON THE PRIMARY CLINICAL RECORDS. [facility]. provides no warranty or guarantee of the accuracy or completeness of information in this document.
--- NOTE | 2023-09-13 08:00 | CA_ITS ---
Patient Name: OLAF BRIONES MR#: [id number] : 1945 Exam Date: 09/13/2023 Ordering Doctor: Non-Staff Physician ECHOCARDIOGRAM REPORT PROCEDURE: CA ECHO DOPPLER COMPLETE INDICATIONS: Hypertension, Coronary artery disease, shortness of breath COMPARISON: None. DESCRIPTION: COMPLETE ECHOCARDIOGRAM Real-time transthoracic echocardiography with 2D, M-mode, spectral and color flow Doppler performed. QUALITY: Technical quality was good. LEFT VENTRICLE: Normal chamber size. Proximal septal hypertrophy (sigmoid septum). LV EF: Global left ventricular systolic function is low normal limits; visually estimated ejection fraction is 50 to 55%. Abnormal septal motion: this may be related to bundle branch block. DIASTOLIC: Diastolic function is indeterminate. ATRIAL SEPTUM: Visually appears intact. LEFT ATRIUM: Moderate dilatation. RIGHT ATRIUM: Normal chamber size. RIGHT VENTRICLE: Normal chamber size. Normal right ventricular systolic function. TRICUSPID VALVE: Normal mobility and thickness. No stenosis with mild regurgitation. No evidence of pulmonary hypertension. RVSP 29 mmHg MITRAL VALVE: Normal mobility and thickness. No evidence of mitral valve stenosis. There is no mitral annular calcification. Trivial mitral regurgitation. AORTIC VALVE: Normal trileaflet appearance. Mild calcification. Normal leaflet mobility. No evidence of aortic valve stenosis. No aortic regurgitation. AORTIC ROOT: Normal diameter and appearance. PULMONIC VALVE: Normal thickness and mobility. No stenosis. No regurgitation. PERICARDIUM: Anterior free space; trivial effusion versus fat pad. IVC: Collapses with inspirations. IVC is normal in size. CONCLUSION: 1. Global left ventricular systolic function is lower normal limits; visually estimated ejection fraction is 50 to 55% 2. The right ventricle is normal in size and systolic function 3. The left atrium is moderately dilated 4. Diastolic function is indeterminate 5. Mild tricuspid regurgitation 6. Anterior free space; trivial effusion versus fat pad Adult Echocardiography Procedure Report Left Ventricle LVEDD (3.7 - 5.6 cm): 5.06 cm LVESD (2.2 - 4.0 cm): 4.04 cm LVIVS thickness (0.6 - 1.2 cm): 1.12 cm LVPW thickness (0.5 - 1.0 cm): 1.02 cm e': 0.11 m/s E - e': 5.98 LVOT Max Gradient: 1.63 mm[Hg] LVOT Area (cm2): 0.64 m/s Peak Velocity (LVOT): 0.64 m/s Mean Velocity (LVOT): 0.50 m/s LVOT Diameter 2.28 cm Left Atrium LA Volume Index (2D A2C): 40.94 ml/m2 Left Atrium Systolic Dimension: 3.85 cm Mitral Valve MV E to A Ratio: 0.93 Mitral Valve A-Wave Peak Velocity: 0.70 m/s Mitral Valve E-Wave Peak Velocity: 0.65 m/s Right Ventricle Aorta AO Root Diam: 3.46 cm Ascending Ao Diam: 2.63 cm Aortic Valve AoV Area (Peak Spencer): 1.82 cm2, 1.82 cm2 AoV Area (VTI): 2.07 cm2, 2.07 cm2 Peak Velocity(Antegrade Flow): 1.43 m/s Peak Gradient(Antegrade Flow): 8.15 mm[Hg] Mean Velocity(Antegrade Flow): 0.96 m/s Mean Gradient(Antegrade Flow): 4.22 mm[Hg] Velocity Time Integral: 36.76 cm Tricuspid Valve Peak Velocity (Regurgitant Flow): 2.56 m/s, 2.39 m/s Pulmonic Valve Mean Gradient: 2.41 mm[Hg] Mean Velocity: 0.72 m/s Peak Velocity: 1.07 m/s, 1.04 m/s Peak Gradient: 4.32 mm[Hg], 4.56 mm[Hg] Right Atrium Right Atrium Systolic Pressure: 29.13 ml, 29.13 ml Dictated by: Ceci Shelton M.D. on 09/13/2023 at 15:00 Approved by: Ceci Shelton M.D. on 09/13/2023 at 15:04
--- NOTE | 2023-09-13 08:38 | XR_ITS ---
The [address] [address] Patient Name: OLAF BRIONES MRN: [id number] date: 1945 Sex: M Assigned Patient Location: CARD Current Patient Location: CARD Accession/Order Number: [id number] Exam Date: 09/13/2023 08:42 Report Date: 09/13/2023 18:19 At the request of: NON-STAFF PHYSICIAN Procedure: XR chest 2V EXAM: XR chest 2V HISTORY: Hypertension, Shortness Of Breath COMPARISON: None. TECHNIQUE: Upright PA and lateral chest x-ray FINDINGS: The heart is not enlarged and the vasculature is not distended. No acute infiltrate, effusion or pneumothorax is identified. The osseous structures are grossly intact. XR/XR chest 2V IMPRESSION: No acute infiltrate or evidence of cardiac decompensation. Electronically authenticated by: DOMINGUEZ TRUJILLO Date: 09/13/2023 18:19
== END 2023-09-13 07:27 | disposition home or self-care (01) ==
PROVIDERS: PCP Family Medicine
DX: I25.10 Atherosclerotic heart disease of native coronary artery without angina pectoris (principal); I10 Essential (primary) hypertension; R06.02 Shortness of breath
CPT/HCPCS: 71046; 93306; 94010

== ENCOUNTER 2023-10-31 09:40 | Outpatient (OUT) | payer MEDICARE, SELFPAY ==
--- OUTSIDE RECORDS SUMMARY | 2023-10-31 09:51 | XMS_ITS | CCD ---
Author Organization [facility] Inform ion [facility] Care Team Providers Care Graphics Artist Name Role Phone Jame Barraza Unavailable Unavailable Unavailable JAME BARRAZA Primary Care Physician DR SHANNA VIORY Attending Unavailable CHRIS, DR JAME Bowers Primary Care Unavailable DR SHANNA IVORY Admitting Unavailable DR SHANNA IVORY Consulting Unavailable NICOLASA, DR AMNA Saucedo Consulting Unavailable DOMINGUEZ GUTIERREZ Admitting Unavailable DOMINGUEZ GUTIERREZ Attending Unavailable DR JAME BARRAZA Primary Care Unavailable NON STAFF Primary Care Provider UnavailDO Shannon Perez Emergency Provider [phone] DO Steven Zamora Attending Provider NON STAFF Primary Care Provider Unavailsigrid Cochran DO Shannon Emergency Provider [phone] DO Steven Zamora Admit Provider DO Steven [...] Primary Care Unavailab alda Barraza, Dr. Jame Fuontain Primary Care Unavailab le Chen, Estella Unavailable Shanna IVORY Attending Unavailable Shanna IVORY Attending Unavailable Halakisha, Astrit H Attending Unavailable Alexandre KOROMA Attending Unavailable Alexandre KOROMA Referring Unavailable Alexandre KOROMA Attending Unavailable Ashutosh Ling MD Unavailable Sudhir HAHN, Dav [facility] Provider [phone] DAV PEGUERO Attending Unavailable SUDHIR, DAV Martinez Attending Unavailable HEMMERLUCINDA Attending Unavailable Dav Peguero MD [facility] Primary Care Provider ASHUTOSH LING Attending Unavailable SUDHIRDAV Morelos Primary Care Unavailable ASHUTOSH LING Attending Unavailable ASHUTOSH LING Referring Unavailable [facility]UDHIR [facility] Unavailable Girenetta HAHN, Andmarc Bobo Attending Unavailable Gibobitis , Andrius Jihan Attending Unavailable Gieditis , Andrius Vytcherelle Attending Unavailable Gieditis , Andrius Jihan Attending Unavailable Allergies Allergy Classification Reported Allergen(s) Allergy Type Date of Onset Reaction(s) Facility (20 sources) Albuterol; Translations: [albuterol] Drug Allergy 11-12-19 12 Headache (finding), Other: See Comments, Headache [facility] (18 sources) hydroCHLOROthiazide; Translations: [hydroCHLOROthiazide TABS] Drug Allergy 08-21-19 23 Eruption of skin (disorder), Rash [facility] (4 sources) Sulfamethoxazole / Trimethoprim; Translations: [sulfamethoxazole-trim ethoprim] Drug Allergy Unknown (qualifier value) [facility] (1 source) Albuterol Drug Allergy [facility] (6 sources) hydroCHLOROthiazide; Translations: [HYDROCHLOROTHIAZIDE] Drug Allergy 08-21-19 Rash [facility] (2 sources) Adhesive Tape; Translations: [adhesive tape] Propensity to adverse reactions 08-22-19 Rash [facility] (1 source) Albuterol Drug Allergy 08-21-19 [facility] (1 source) hydroCHLOROthiazide Drug Allergy 08-21-19 [facility] Medications Current Medications Medication Drug [...] 3:22pm Start: 10-21-2020 take 1 tablet by [facility] once daily metoprolol 25 mg ER [...] Coronary arteriosclerosis; Translations: [Atherosclerotic heart disease of ute coronary artery without angina pectoris] Onset: 08-27-2022 [...] Urnls Dip Stick Auto w/o Microscopy POC 94130 XR Abdomen 1 View -- Results Pending [...] Shanna IVORY MD Where: [facility] Franca Tyler [facility] Pathology Noteon 11-26-2022 Pathology Note [id number]#1.00TIFF [facility] Patient Educationon 11-27-19 Patient Education Nephrology Dietary [...] ? 8 oz (237 mL) of milk, itlwslb-aovkyuhwwlng-gmvvj milk, and calcium-fortifiedfruit juice. Calcium-fortified means that [...] Spinach (cooked), rhubarb, beets, sweet potatoes, and [place] chard. ? Peanuts. ? Potato chips, italian fries, and baked potatoes with skin on. ? Nuts and nut products. ? Chocolate. ? If you regularly take a diuretic medicine, make sure to eat at least 1 or 2 servings of fruits or vegetables that are high in potassium each day. These include: ? Avocado. ? Banana. ? Graham, prune, carrot, or tomato juice. ? Baked [...] fish oil, or vitamin B6. ? Take dtcn-izi-apfvmix and prescription medicines only as told by your health care provider. These include supplements. What foods should I limit? Limit your in (more content not included)... Normal [facility] RAD - MISFormerly [facility] 11-26-2022 [facility] [id number]#1.00TIFF Normal [facility] Urology Office/Clinic Noteon 11-26-2022 Urology Office/Clinic Note Chief Complaint 1yr KUB HPI Staff Pt is here today for 1yr KUB due to BPH, Kidney Stone & Microscopic Hematuria. *Allopurinol 300mg qd therapy. At that time PRW discussed DC'ing PSA checks due to pt's advancing age. Since then pt has gone to [facility] 08/26/22 CC: Lower Pelvic Pain & Blood clots in urine PVR at that time 500ml Catheter Placed C&S 600 cfu/ml Staphylococcus species coagulase negative Sandy not indicative of a Cath specimen CTU 08/26/22 Dr Koroma did see pt, due to recent cardiac cath & heart attack, pt was transferred to [facility]. There pt underwent Cysto/Clot Evacuation/Litholapaxy & [...] age. Since then pt has gone to [facility] 08/26/22 CC: Lower Pelvic Pain & Blood clots in urine PVR at that time 500ml Catheter Placed C&S 600 cfu/ml Staphylococcus species coagulase negative Sandy not indicative of a Cath specimen CTU 08/26/22 Dr Koroma did see pt, due to recent cardiac cath & heart attack, pt was transferred to [facility]. There pt underwent Cysto/Clot Evacuation/Litholapaxy & [...] stones. Stone Analysis done 08/28/22 - CaOx Barrow 50%, CaOx Dihy 40%, and minor components [...] [facility] [address], [place] [address]- Additional Instructions: w/KUB Patient Education Dietary Guidelines [...] trigone, bladder n (more content not included)... [facility] Comment on above: Result Comment: Elec tronically Signed By: CACHORRO HAHN, Shanna Spicer.br\Date and Time Signed: 11/26/22 14:10 EDT\.br\Electronically Co-Signed By: Sheila Tripathi.br\Date and Time Co-Signed: 11/26/22 14:08 EDT Physician Orderon 11-20-2022 Physician Order [id number]#1.00CD:127 [facility] Auth for Release of Medical Recordson 09-27-2022 Auth for Release of Medical Records [id number]#1.00CD:127 [facility] Consultation Noteon 09-20-19 Consultation Note [id number]#1.00CD:127 [facility] Consultation Note [id number]#1.00CD:127 [facility] Consultation Note [id number]#1.00CD:127 [facility] Consultation Note [id number]#1.00CD:127 [facility] Lab Reportson 09-19-2022 Lab Reports [id number]#1.00CD:127 [facility] Lab Reports [id number]#1.00CD:127 [facility] Lab Reports [id number]#1.00CD:127 [facility] Lab Reports [id number]#1.00CD:127 Normal [facility] Operative Reporton Operative Report [id number]#1.00CD:127 Normal [facility] Operative Report [id number]#1.00CD:127 Normal [facility] CNPNon 09-06-2022 CNPN Telephone (UROLMN) -- OLAF BRIONES ([id number]) 1945 M Date Time Provider Department 09/06/22 JUSTINE WILSON During your visit today, we recorded the following information about you: Justine Wilson RN 09/06/2022 10:31 AM Signed ----- Message from Jocelin Gr sent at 09/06/2022 8:23 AM EDT ----- Regarding: medciation script needed Contact: Pt is calling in to see if the flomax can be called in. The pharmacy is not at [facility] I will need to call them when [...] Hematuria [R31.9] 08/27/2022 Coronary artery disease involving ute hinton*08/27/2022 Adverse reaction to antiplatelet agent [T45.7X5*08/27/2022 Myocardial infarction (HCC) [I21.9] 08/27/2022 Essential (primary) hypertension [I10] 08/27/2022 Type 2 diabetes mellitus without complication, *08/27/2022 Leukocytosis [D72.829] 08/27/2022 Malnutrition of mild degree (HCC) [E44.1] 08/29/2022 Encounter Status:Closed by JUSTINE WILSON RN on 09/06/22 Normal [facility] Ambulatory Visit Summaryon 0 09-05-2022 Ambulatory [...] HAHN, Shanna Sánchez Where: [facility] Office Visit (Cardiology)on 09-05-2022 [...] Status: Hold For - Scheduling Requested for: [id number] Agreement : I agree to have my patient participate in the phase III outpatient cardiac rehabilitation program after completion of the phase II program. Consent : I consent to have my patient participate in the cardiac rehabilitation program. I will continue regular medical care of my patient throughout his/her participation in the program. Individualized Treatment Plan and Exercise Prescription : Request the Eeler to share responsibility for developing an ITP [...] in adult Healthy Weight Tips; Status:Complete; Done: [id number] Some eating tips that can help you lose weight.; Status:Complete; Done: [id number] SocHx: Former smoker Tobacco Use Screening; Status:Complete; Done: [id number] Patient Instructions Please bring all medicines, vitamins, and herbal supplements with you when you come to the office. Prescriptions will not be filled unless you are compliant with your follow up appointments or have a follow up appointment scheduled as per instruction of your physician. Refills should be requested at the time of your visit. Follow up in 4 months [facility] cardiac rehab -one month History of Present [...] he developed hematuria ultimately went to the [facility] where he underwent TURP and removal [...] 1 TABLET (more content not included)... Normal [facility] Tobacco Screening.on 023 Adult depression screening assessment No [facility] [employer] DO Work Phone: Fall risk assessment a) No falls within the last year [facility] [employer] DO Work Phone: Tobacco use status CPHS b) No M [facility] [employer] DO Work Phone: CNPNon 09-04-2022 CNPN Telephone (PODCCP) -- OLAF BRIONES ([id number]) 1945 M Date Time Provider Department 09/04/22 DEBORAH IBARRA PODCCP During your visit today, we recorded the following information about you: Deborah Ibarra RN 09/04/2022 12:52 PM Signed PATIENT INFORMATION Record ID: [id number] Patient Name: Olaf Briones [facility] Center: [facility] Agency: Counts Include [facility] Attending: David Andrews Center: Urology INSTRUCTIONS SN to remind patient of appointment date, time, location All Clear All Clear SURVEY INFORMATION Medical/Nurse Graduate Assistant: Deborah Ibarra 1. Your discharge instructions are [...] Reason for Visit: Follow Up Phone Call [8792] Cmt: All Clear Prescriptions as of 09/04/2022 [...] Hematuria [R31.9] 08/27/2022 Coronary artery disease involving ute hinton*08/27/2022 Adverse reaction to antiplatelet agent [T45.7X5*08/27/2022 Myocardial infarction (HCC) [I21.9] 08/27/2022 Essential (primary) hypertension [I10] 08/27/2022 Type 2 diabetes mellitus without complication, *08/27/2022 Leukocytosis [D72.829] 08/27/2022 Malnutrition of mild degree (HCC) [E44.1] 08/29/2022 Encounter Status:Closed by DEBORAH IBARRA on 09/04/22 Normal [facility] CBC panel Auto (Bld)on 08-31 Erythrocyte distribution width (RBC) [Ratio] 12.8 % Normal 11.5-15.0 [facility] Comment on above: Order Comment: Speci men Type: BLOOD SPECIMENOrdering Facility: [facility] Address: [address] [place] [address] Performed By: #### 5 8410-2 ####[facility] LABIA [id number] [place] [address] [place] Hematocrit (Bld) [Volume fraction] 30.7 % Low 39.0-51.0 [facility] Comment on above: Order Comment: Portia tay Type: BLOOD SPECIMENOrdering Facility: [facility] Address: [address] [place] [address] Performed By: #### 5 8410-2 ####[facility] LABIA [id number] [place] [address] [place] Hemoglobin (Bld) [Mass/Vol] 10.4 g/dL Low 13.0-17.0 [facility] Comment on above: Order Comment: Janiei men Type: BLOOD SPECIMENOrdering Facility: [facility] Address: [address] [place] [address] Performed By: #### 5 8410-2 ####[facility] LABIA [id number] MCH (RBC) [Entitic mass] 31.4 pg Normal 26.0-34.0 [facility] Comment on above: Order Comment: Speci men Type: BLOOD SPECIMENOrdering Facility: [facility] Address: [address] [place] [address] Performed By: #### 5 8410-2 ####[facility] LABCLIA [id number] [address] STATES [facility] MCHC (RBC) [Mass/Vol] 33.9 g/dL Normal 30.5-36.0 [facility] Comment on above: Order Comment: Speci men Type: BLOOD SPECIMENOrdering Facility: [facility] Address: [address] [place] [address] Performed By: #### 5 8410-2 ####[facility] LABCLIA [id number] [address] OF [facility] MCV (RBC) [Entitic vol] 92.7 fL Normal 80.0-100.0 [facility] Comment on above: Order Comment: Speci men Type: BLOOD SPECIMENOrdering Facility: [facility] Address: [address] [place] [address] Performed By: #### 5 8410-2 ####[facility] LABCLIA [id number] [place] [address] [place] Nucleated RBC (Bld) [#/Vol] 10*3/uL Normal <0.01 [facility] Comment on above: Order Comment: Speci men Type: BLOOD SPECIMENOrdering Facility: [facility] Address: [address] [place], [place] [address] Performed By: #### 5 8410-2 ####[facility] LABCLIA [id number] [address] [place] Platelet mean volume (Bld) [Entitic vol] 11.5 fL Normal 9.0-12.7 [facility] Comment on above: Order Comment: Speci men Type: BLOOD SPECIMENOrdering Facility: [facility] Address: [address] [place] [address] Performed By: #### 5 8410-2 ####[facility] LABCLIA [id number] [place] [address] [place] Platelets (Bld) [#/Vol] 194 10*3/uL Normal 150-400 [facility] Comment on above: Order Comment: Speci men Type: BLOOD SPECIMENOrdering Facility: [facility] Address: [address] [place] [address] Performed By: #### 5 8410-2 ####[facility] LABIA [id number] [place] [address] [place] RBC (Bld) [#/Vol] 3.31 10*6/uL Low 4.20-6.00 [facility] Comment on above: Order Comment: Speci men Type: BLOOD SPECIMENOrdering Facility: [facility] Address: [address] [place] [address] Performed By: #### 5 8410-2 ####[facility] LABIA [id number] [place] [address] [place] WBC (Bld) [#/Vol] 10.56 10*3/uL Normal 3.70-11.00 [facility] Comment on above: Order Comment: Speci men Type: BLOOD SPECIMENOrdering Facility: [facility] Address: [address] [place] [address] Performed By: #### 5 8410-2 ####[facility] LABIA [id number] [address] [place] CNDSon 08-31-2022 CNDS HNO ID: [id number] Author: David Andrews MD Service: Urology Author [...] stable in SICU, ready to transfer to [facility]. Hernandez light pink on traction. Discontinued on Zosyn given negative blood and urine cultures. - DOA#3/POD#2: Hemoglobin continues to be stable. Urine light pink off traction. Transferred to [facility] - DOA#4/POD#3: Will discharge today with [...] Your Medications These medications were sent to [facility] [address] [place] [address] Hours: Saturday-Saturday 7am-8pm, Saturday, Saturday and Holidays [...] DATE: August 31, 2022 TIME: 8:41 AM [facility] STAFF PHYSICIAN NOTE OF PERSONAL INVOLVEMENT [...] care coordinatio (more content not included)... Normal [facility] metabolic 2000 panelon 08-31-2022 Albumin [Mass/Vol] 3.8 g/dL Low 3.9-4.9 [facility] Comment on above: Order Comment: Speci men Type: BLOOD SPECIMENOrdering Facility: [facility] Address: [address] [place] [address] Performed By: #### 2 4323-8, 11260-0, 2776-1 ####[facility] LABCLIA [id number] [place] [address] [place] ALP [Catalytic activity/Vol] 116 U/L High 38-113 [facility] Comment on above: Order Comment: Speci men Type: BLOOD SPECIMENOrdering Facility: [facility] Address: [address] [place] [address] Performed By: #### 2 4323-8, 01603-1, 2776- ####[facility] LABCLIA [id number] [place] [address] [place] ALT [Catalytic activity/Vol] 23 U/L Normal 10-54 [facility] Comment on above: Order Comment: Speci men Type: BLOOD SPECIMENOrdering Facility: [facility] Address: [address] [place] [address] Performed By: #### 2 4323-8, 83270-7, 2776- ####[facility] LABCLIA [id number] [place] [address] [place] Anion gap [Moles/Vol] 9 mmol/L Normal 9-18 [facility] Comment on above: Order Comment: Speci men Type: BLOOD SPECIMENOrdering Facility: [facility] Address: [address] [place] [address] Performed By: #### 2 4323-8, 40981-7, 2776-1 ####[facility] LABCLIA [id number] [place] [id number] [place] AST [Catalytic activity/Vol] 19 U/L Normal 14-40 [facility] Comment on above: Order Comment: Speci men Type: BLOOD SPECIMENOrdering Facility: [facility] Address: [address] [place] [address] Performed By: #### 2 4323-8, , 2776-02 ####[facility] LABCLIA [id number] [place] [address] [place] Bilirubin [Mass/Vol] 0.3 mg/dL Normal 0.2-1.3 [facility] Comment on above: Order Comment: Speci men Type: BLOOD SPECIMENOrdering Facility: [facility] Address: [address] [place] [address] Performed By: #### 2 4323-8, , 2776-02 ####[facility] LABCLIA [id number] [place] [address] [place] Calcium [Mass/Vol] 9.1 mg/dL Normal 8.5-10.2 [facility] Comment on above: Order Comment: Speci men Type: BLOOD SPECIMENOrdering Facility: [facility] Address: [address] [place] [address] Performed By: #### 2 4323-8, , 2776-02 ####[facility] LABCLIA [id number] [place] [address] [place] Chloride [Moles/Vol] 105 mmol/L Normal 97-105 [facility] Comment on above: Order Comment: Speci men Type: BLOOD SPECIMENOrdering Facility: [facility] Address: [address] [place], [place] [address] Performed By: #### 2 4323-8, , 2776-02 ####[facility] LABCLIA [id number] [place] [address] [place] CO2 [Moles/Vol] 25 mmol/L Normal 22-30 [facility] Comment on above: Order Comment: Speci men Type: BLOOD SPECIMENOrdering Facility: [facility] Address: [address] [place] [phone] Performed By: #### 2 4323-8, , 2776-02 ####[facility] LABCLIA [id number] [place] [address] [place] Creatinine [Mass/Vol] 0.88 mg/dL Normal 0.73-1.22 [facility] Comment on above: Order Comment: Speci men Type: BLOOD SPECIMENOrdering Facility: [facility] Address: [address] [place] [address] Performed By: #### 2 4323-8, , 2776-02 ####[facility] LABCLIA [id number] [place] [address] [place] ESTIMATED GLOMERULAR FILTRATION RATE 89 mL/min/1.73m??? Normal >=60 [facility] Comment on above: Order Comment: Speci men Type: BLOOD SPECIMENOrdering Facility: [facility] Address: [address] [place] [address] Result Comment: Mariaelena mated Glomerular Filtration Rate [...] Performed By: #### 2 4323-8, , 2776-02 ####[facility] LABCLIA [id number] [place] [address] [place] Glucose [Mass/Vol] 114 mg/dL High 74-99 [facility] Comment on above: Order Comment: Speci men Type: BLOOD SPECIMENOrdering Facility: [facility] Address: [address] [place] [place] [phone] Result Comment: The [place] Diabetes Association (ADA) provides guidance for cutoff [...] Standards of Medical Care in Diabetes 2016, [place] [employer] Association. Diabetes Care. 2016.39(Suppl 1). Performed By: #### 2 4323-8, , 2776-02 ####[facility] LABIA [id number] [place] [address] [place] Potassium [Moles/Vol] 4.2 mmol/L Normal 3.7-5.1 [facility] Comment on above: Order Comment: Speci men Type: BLOOD SPECIMENOrdering Facility: [facility] Address: [address] [place] [place] [phone] Performed By: #### 2 4323-8, , 2776-02 ####[facility] LABIA [id number] [place] [address] [place] Protein [Mass/Vol] 6.1 g/dL Low 6.3-8.0 [facility] Comment on above: Order Comment: Speci men Type: BLOOD SPECIMENOrdering Facility: [facility] Address: [address] [place] [address] Performed By: #### 2 4323-8, , 2776-02 ####[facility] LABIA [id number] [place] [address] [place] Sodium [Moles/Vol] 139 mmol/L Normal 136-144 [facility] Comment on above: Order Comment: Speci men Type: BLOOD SPECIMENOrdering Facility: [facility] Address: [address] [place] [address] Performed By: #### 2 4323-8, 15799-1, 2776- ####[facility] LABIA [id number] [place] [id number] [place] Urea nitrogen [Mass/Vol] 21 mg/dL Normal 9-24 [facility] Comment on above: Order Comment: Speci jasvir Type: BLOOD SPECIMENOrdering Facility: [facility] Address: [address] [place], [place] [address] Performed By: #### 2 4323-8, , 2776- ####[facility] [id number] [place] [id number] [place] Magnesium SerPl-mCncon 08-31 Magnesium [Mass/Vol] 2.2 mg/dL Normal 1.7-2.3 [facility] Comment on above: Order Comment: Speci jasvir Type: BLOOD SPECIMENOrdering Facility: [facility] Address: [address] [place], [place] [address] Performed By: #### 2 4323-8, , 2776-02 ####[facility] [id number] [place] [address] [place] PT panel Coag (PPP)on 2022 INR Coag (PPP) [Relative time] 1.0 {INR} Normal 0.9-1.3 [facility] Comment on above: Order Comment: Portia tay Type: BLOOD SPECIMENOrdering Facility: [facility] Address: [address] [place], [place] [address] Result Comment: Mago min K Antagonist (VKA) Therapeutic Range: INR 2 to 3 (Target INR of 2.5) Note: For patients treated with VKA drugs, such as warfarin, the [place] [employer] 2012 Guideline recommends [...] Chest 2012, 141:7S-47S Daniel RA, et al. [facility] 2017, 70: 252-289 Performed By: #### 3 4528-0, 48966-9 ####[facility] [id number] [address] OF [facility] PT Coag (PPP) [Time] 10.4 s Normal 9.7-13.0 [facility] Comment on above: Order Comment: Specherbie men Type: BLOOD SPECIMENOrdering Facility: [facility] Address: [address] [place] [address] Performed By: #### 3 4528-0, 09307-7 ####[facility] [id number] [address] OF [place] Phosphate SerPl-mCncon 08-31 Phosphate [Mass/Vol] 3.6 mg/dL Normal 2.7-4.8 [facility] Comment on above: Order Comment: Portia tay Type: BLOOD SPECIMENOrdering Facility: [facility] Address: [address] [place] [address] Performed By: #### 2 4323-8, 02761-2, 2777-1 ####[facility] [id number] [place] [id number] [facility] [place] THERAPY NTon 08-31-2022 THERAPY NT HNO ID: [id number] Author: Jenna Duggan, PT Service: Physical Therapy Author Type: Physical Therapist Type: Therapy (PT/OT/Speech/Resp) Filed: 08/31/2022 10:55 AM Note Text: Physical Therapy Treatment SERVICE DATE: 08/31/2022 SERVICE TIME: 0940 to 1003 ROOM: [place] [address] Recommended Discharge Disposition: Home Anticipated Discharge Needs: [...] HLD, DM, recent STEMI (08/20/2022), transferred from [facility] for gross hematuria. Currently with 18Fr 3-way catheter on CBI. 08/28/22: s/p cystoscopy, clot evacuation, cystolitholapaxy, TURP. Admitted to SICU postoperatively due to pressor requirements and risk of hyponatremia due to length of TURP. 22Fr [address] hernandez placed introp, on traction and CBI. Reason for Hospital Admission: Pt 77y/o male transferred from [facility] for gross hematuria secondary to recent [...] General Deviations/Observations: Diana decreased, Flexed trunk posture -[facility]: 8: Walk 250 feet or more [...] Diagnosis: Reduced mobility-other Interventions Provided: Gait Training (37621) Gait Training (35213) Treatment Minutes: 23 $ Gait Training (17800) Billed Units: 2 units Training AND Education Provided in: Benefits of In-Hospital Mobility, Bed Mobility, Energy Conservation, Equipment, Exercise Program, Expected Functional Level, Gait Pattern, Reduction of Deviations, Patient Exercise/Therapy Program Support Needs, Positioning, Precautions/Restrictions, Role of Physical Therapy, Standing Balance, (more content not included)... Normal [facility] aPTT PPPon 08-31-2022 aPTT Coag (PPP) [Time] 25.2 s Normal 23.0-32.4 [facility] Comment on above: Order Comment: Speci men Type: BLOOD SPECIMENOrdering Facility: [facility] Address: [address] [address] Performed By: #### 3 4528-0, 90143-3 ####[facility] LABIA [id number] [address] [place] CBC panel Auto (Bld)on 08-30 Erythrocyte distribution width (RBC) [Ratio] 12.7 % Normal 11.5-15.0 [facility] Comment on above: Order Comment: Speci men Type: BLOOD SPECIMENOrdering Facility: [facility] Address: [address] [place] [address] Performed By: #### 5 8410-2 ####[facility] LABIA [id number] [address] [place] Hematocrit (Bld) [Volume fraction] 30.5 % Low 39.0-51.0 [facility] Comment on above: Order Comment: Speci men Type: BLOOD SPECIMENOrdering Facility: [facility] Address: [address] [place] [address] Performed By: #### 5 8410-2 ####[facility] LABIA [id number] [address] [place] Hemoglobin (Bld) [Mass/Vol] 10.4 g/dL Low 13.0-17.0 [facility] Comment on above: Order Comment: Speci men Type: BLOOD SPECIMENOrdering Facility: [facility] Address: [address] [place] [address] Performed By: #### 5 8410-2 ####[facility] LABIA [id number] [address] [place] MCH (RBC) [Entitic mass] 31.7 pg Normal 26.0-34.0 [facility] Comment on above: Order Comment: Speci men Type: BLOOD SPECIMENOrdering Facility: [facility] Address: [address] [place] [address] Performed By: #### 5 8410-2 ####[facility] LABIA [id number] [address] [place] MCHC (RBC) [Mass/Vol] 34.1 g/dL Normal 30.5-36.0 [facility] Comment on above: Order Comment: Speci men Type: BLOOD SPECIMENOrdering Facility: [facility] Address: [address] [place] [phone] Performed By: #### 5 8410-2 ####[facility] LABIA [id number] [place] [address] [place] MCV (RBC) [Entitic vol] 93.0 fL Normal 80.0-100.0 [facility] Comment on above: Order Comment: Speci men Type: BLOOD SPECIMENOrdering Facility: [facility] Address: [address] [place] [phone] Performed By: #### 5 8410-2 ####[facility] [id number] [place] [address] [place] Nucleated RBC (Bld) [#/Vol] 10*3/uL Normal <0.01 [facility] Comment on above: Order Comment: Speci men Type: BLOOD SPECIMENOrdering Facility: [facility] Address: [address] [place] [address] Performed By: #### 5 8410-2 ####[facility] LABIA [id number] [address] [place] Platelet mean volume (Bld) [Entitic vol] 11.6 fL Normal 9.0-12.7 [facility] Comment on above: Order Comment: Speci men Type: BLOOD SPECIMENOrdering Facility: [facility] Address: [address] [place] [address] Performed By: #### 5 8410-2 ####[facility] [id number] [place] [id number] [place] Platelets (Bld) [#/Vol] 192 10*3/uL Normal 150-400 [facility] Comment on above: Order Comment: Speci men Type: BLOOD SPECIMENOrdering Facility: [facility] Address: [address] [place] [address] Performed By: #### 5 8410-2 ####[facility] LABCLIA [id number] [place] [address] [place] RBC (Bld) [#/Vol] 3.28 10*6/uL Low 4.20-6.00 [facility] Comment on above: Order Comment: Speci men Type: BLOOD SPECIMENOrdering Facility: [facility] Address: [address] [place] [address] Performed By: #### 5 8410-2 ####[facility] LABCLIA [id number] [place] [address] [place] WBC (Bld) [#/Vol] 15.06 10*3/uL High 3.70-11.00 [facility] Comment on above: Order Comment: Speci men Type: BLOOD SPECIMENOrdering Facility: [facility] Address: [address] [place] [address] Performed By: #### 5 8410-2 ####[facility] LABCLIA [id number] [place] [address] [place] Comprehensive metabolic 2000 panelon 08-30-2022 Albumin [Mass/Vol] 3.4 g/dL Low 3.9-4.9 [facility] Comment on above: Order Comment: Speci men Type: BLOOD SPECIMENOrdering Facility: [facility] Address: [address] [place] [address] Performed By: #### 2 4323-8, 19809-6, 2777-1 ####[facility] LABCLIA [id number] [place] [address] [place] ALP [Catalytic activity/Vol] 105 U/L Normal 38-113 [facility] Comment on above: Order Comment: Speci men Type: BLOOD SPECIMENOrdering Facility: [facility] Address: [address] [place], [place] [address] Performed By: #### 2 4323-8, , 2776-02 ####[facility] LABCLIA [id number] [place] [address] [place] ALT [Catalytic activity/Vol] 18 U/L Normal 10-54 [facility] Comment on above: Order Comment: Speci men Type: BLOOD SPECIMENOrdering Facility: [facility] Address: [address] [place] [address] Performed By: #### 2 4323-8, , 2776-02 ####[facility] LABCLIA [id number] [place] [address] [place] Anion gap [Moles/Vol] 11 mmol/L Normal 9-18 [facility] Comment on above: Order Comment: Speci men Type: BLOOD SPECIMENOrdering Facility: [facility] Address: [address] [place], [place] [address] Performed By: #### 2 4323-8, , 2776-02 ####[facility] LABCLIA [id number] [place] [address] [place] AST [Catalytic activity/Vol] 16 U/L Normal 14-40 [facility] Comment on above: Order Comment: Speci men Type: BLOOD SPECIMENOrdering Facility: [facility] Address: [address] [place], [place] [address] Performed By: #### 2 4323-8, , 2776-02 ####[facility] LABCLIA [id number] [place] [address] [place] Bilirubin [Mass/Vol] 0.3 mg/dL Normal 0.2-1.3 [facility] Comment on above: Order Comment: Speci men Type: BLOOD SPECIMENOrdering Facility: [facility] Address: [address] Performed By: #### 2 4323-8, , 2776-02 ####[facility] LABCLIA [id number] [place] [address] [place] Calcium [Mass/Vol] 8.9 mg/dL Normal 8.5-10.2 [facility] Comment on above: Order Comment: Speci men Type: BLOOD SPECIMENOrdering Facility: [facility] Address: [address] Performed By: #### 2 4323-8, , 2776-02 ####[facility] LABCLIA [id number] [place] [address] [place] Chloride [Moles/Vol] 103 mmol/L Normal 97-105 [facility] Comment on above: Order Comment: Speci men Type: BLOOD SPECIMENOrdering Facility: [facility] Address: [address] Performed By: #### 2 4323-8, , 2776-02 ####[facility] LABCLIA [id number] [place] [address] [place] CO2 [Moles/Vol] 24 mmol/L Normal 22-30 [facility] Comment on above: Order Comment: Speci men Type: BLOOD SPECIMENOrdering Facility: [facility] Address: [address] [phone] Performed By: #### 2 4323-8, , 2776-02 ####[facility] LABCLIA [id number] [address] [address] [place] Creatinine [Mass/Vol] 0.77 mg/dL Normal 0.73-1.22 [facility] Comment on above: Order Comment: Speci men Type: BLOOD SPECIMENOrdering Facility: [facility] Address: [address] [phone] Performed By: #### 2 4323-8, 53051-9, 2777-1 ####[facility] LABCLIA [id number] [place] [address] [place] ESTIMATED GLOMERULAR FILTRATION RATE 92 mL/min/1.73m??? Normal >=60 [facility] Comment on above: Order Comment: Speci men Type: BLOOD SPECIMENOrdering Facility: [facility] Address: [address] [phone] Result Comment: Mariaelena mated Glomerular Filtration Rate [...] actual GFR. Performed By: #### 2 4323-8, 82503-4, 2777-1 ####[facility] LABIA [id number] [place] [id number] [place] Glucose [Mass/Vol] 124 mg/dL High 74-99 [facility] Comment on above: Order Comment: Janieherbie jasvir Type: BLOOD SPECIMENOrdering Facility: [facility] Address: [address] [phone] Result Comment: The [place] [employer] Association (ADA) provides guidance for cutoff [...] Standards of Medical Care in Diabetes 2016, [place] [employer]. Diabetes Care. 2016.39(Suppl 1). Performed By: #### 2 4323-8, 17880-0, 2776-02 ####[facility] LABCLIA [id number] [address] [address] [place] Potassium [Moles/Vol] 3.9 mmol/L Normal 3.7-5.1 [facility] Comment on above: Order Comment: Speci men Type: BLOOD SPECIMENOrdering Facility: [facility] Address: [address] [address] Performed By: #### 2 4323-8, , 2776-02 ####[facility] LABIA [id number] [place] [address] [place] Protein [Mass/Vol] 6.2 g/dL Low 6.3-8.0 [facility] Comment on above: Order Comment: Speci men Type: BLOOD SPECIMENOrdering Facility: [facility] Address: [address] [address] Performed By: #### 2 4323-8, , 2776-02 ####[facility] LABIA [id number] [place] [address] [place] Sodium [Moles/Vol] 138 mmol/L Normal 136-144 [facility] Comment on above: Order Comment: Speci men Type: BLOOD SPECIMENOrdering Facility: [facility] Address: [address] Performed By: #### 2 4323-8, , 2776-02 ####[facility] LABIA [id number] [place] [address] [place] Urea nitrogen [Mass/Vol] 22 mg/dL Normal 9-24 [facility] Comment on above: Order Comment: Speci men Type: BLOOD SPECIMENOrdering Facility: [facility] Address: [address] Performed By: #### 2 4323-8, 98365-5, 2777-1 ####[facility] LABCLIA [id number] [place] [address] [facility] Magnesium SerPl-mCncon 08-30 Magnesium [Mass/Vol] 2.2 mg/dL Normal 1.7-2.3 [facility] Comment on above: Order Comment: Speci men Type: BLOOD SPECIMENOrdering Facility: [facility] Address: [address] [place] [address] Performed By: #### 2 4323-8, 57428-9, 2777- ####[facility] LABIA [id number] [address] PT panel Coag (PPP)on 2022 INR Coag (PPP) [Relative time] 1.1 {INR} Normal 0.9-1.3 [facility] Comment on above: Order Comment: Speci jasvir Type: BLOOD SPECIMENOrdering Facility: [facility] Address: [address] [place] [address] Result Comment: Mago min K Antagonist (VKA) Therapeutic Range: INR 2 to 3 (Target INR of 2.5) Note: For patients treated with VKA drugs, such as warfarin, the [place] [employer] 2012 Guideline recommends [...] Chest 2012, 141:7S-47S Daniel KENNEDY, et al. [facility] 2017, 70: 252-289 Performed By: #### 3 4528-0, 69488-8 ####[facility] LABIA [id number] [address] [place] PT Coag (PPP) [Time] 10.9 s Normal 9.7-13.0 [facility] Comment on above: Order Comment: Speci men Type: BLOOD SPECIMENOrdering Facility: [facility] Address: [address] [place] [address] Performed By: #### 3 4528-0, 98592-9 ####[facility] LABIA [id number] [address] Phosphate SerPl-mCncon 08-30 Phosphate [Mass/Vol] 3.2 mg/dL Normal 2.7-4.8 [facility] Comment on above: Order Comment: Speci men Type: BLOOD SPECIMENOrdering Facility: [facility] Address: [address] [place] [address] Performed By: #### 2 4323-8, 45906-6, 2777-1 ####[facility] LABIA [id number] [address] THERAPY NTon 08-30-2022 THERAPY NT HNO ID: [id number] Author: Jenna Duggan, PT Service: Physical Therapy Author Type: Physical Therapist Type: Therapy (PT/OT/Speech/Resp) Filed: 08/30/2022 3:12 PM Note Text: Physical Therapy Treatment SERVICE DATE: 08/30/2022 SERVICE TIME: 1337 to 1400 ROOM: [place] [address] Recommended Discharge Disposition: Home Anticipated Discharge Needs: [...] HLD, DM, recent STEMI (08/20/2022), transferred from [facility] for gross hematuria. Currently with 18Fr 3-way catheter on CBI. 08/28/22: s/p cystoscopy, clot evacuation, cystolitholapaxy, TURP. Admitted to SICU postoperatively due to pressor requirements and risk of hyponatremia due to length of TURP. 22Fr [address] hernandez placed introp, on traction and CBI. Reason for Hospital Admission: Pt 77y/o male transferred from [facility] for gross hematuria secondary to recent [...] ft Stairs Curb Step Car Transfer Blank hernandze indicate activity not attempted General Deviations/Observations: Diana decreased, Flexed trunk posture -[facility]: 8: Walk 250 feet or more [...] Diagnosis: Reduced mobility-other Interventions Provided: Therapeutic Activity (37117), Gait Training (83641) Therapeutic Activity (70462) Treatment Minutes: 8 $ Therapeutic Activity (84703) Billed Units: 1 unit Gait Training (85116) Treatment Minutes: 15 $ Gait Training (82067) Billed Units: 1 unit Training AND Education Provided in: Benefits of In-Hospital Mobility, Bed Mobility, Energy Conservation, Equipment, Exercise Program, Expected Functional Level, Gait Pattern, Reduction of Deviations, Patient Exercise/Therapy Program Support Needs, Positioning, Precautions/Restrictions, Role of Physical Therapy, Standing Balance, Treatment Protocol, Transfers The Followin (more content not included)... Normal [facility] TYPE + SCREENon 08-30-2022 ABO O Normal [facility] Comment on above: Order Comment: Speci men Type: BLOOD SPECIMENOrdering Facility: [facility] Address: [address] [place] [address] Performed By: #### T SCR ####[facility] B[facility] BANKCLIA [id number] [address] STATES OF [facility] HISTORICAL AB SCR STATUS Negative Normal [facility] Comment on above: Order Comment: Speci men Type: BLOOD SPECIMENOrdering Facility: [facility] Address: [address] [place] [address] Performed By: #### T SCR ####[facility] BLO[facility] BANKCLIA [id number] [address] [place] Rh Nom (Bld) Positive Normal [facility] Comment on above: Order Comment: Speci men Type: BLOOD SPECIMENOrdering Facility: [facility] Address: [address] [address] Performed By: #### T SCR ####[facility] BLOOD BANKIA [id number] [address] OF [facility] TYPE AND SCREEN EXPIRATION 09/02/2022 23:59 Normal [facility] Comment on above: Order Comment: Speci men Type: BLOOD SPECIMENOrdering Facility: [facility] Address: [address] [place] [address] Performed By: #### T SCR ####[facility] BLOOD [facility] [id number] [address] aPTT PPPon 08-30-2022 aPTT Coag (PPP) [Time] 26.5 s Normal 23.0-32.4 [facility] Comment on above: Order Comment: Speci men Type: BLOOD SPECIMENOrdering Facility: [facility] Address: [address] [place] [address] Performed By: #### 3 4528-0, 18657-9 ####[facility] LABCLIA [id number] [address] C Urineon 08-29-2022 Bacteria identified Cx [...] Locations R1: This test was performed at: [facility], [address] [place] [address], [address] , [place], Normal [facility] Comment on above: Performed By: #### 2 604023, 80670228, 5485384, 18259844, 3647753 #### [facility] [address] [place] [address] CBC panel Auto (Bld)on 08-29 Erythrocyte distribution width (RBC) [Ratio] 12.5 % Normal 11.5-15.0 [facility] Comment on above: Order Comment: Speci men Type: BLOOD SPECIMENOrdering Facility: [facility] Address: [address] [place] [address] Performed By: #### 5 8410-2 ####[facility] [id number] [address] [place] Hematocrit (Bld) [Volume fraction] 30.7 % Low 39.0-51.0 [facility] Comment on above: Order Comment: Speci men Type: BLOOD SPECIMENOrdering Facility: [facility] Address: [address] [place] [address] Performed By: #### 5 8410-2 ####[facility] [id number] [address] [place] Hemoglobin (Bld) [Mass/Vol] 10.6 g/dL Low 13.0-17.0 [facility] Comment on above: Order Comment: Speci men Type: BLOOD SPECIMENOrdering Facility: [facility] Address: [address] [place] [address] Performed By: #### 5 8410-2 ####[facility] LABIA [id number] [place] [address] [place] MCH (RBC) [Entitic mass] 32.0 pg Normal 26.0-34.0 [facility] Comment on above: Order Comment: Speci men Type: BLOOD SPECIMENOrdering Facility: [facility] Address: [address] [place] [address] Performed By: #### 5 8410-2 ####[facility] LABCLIA [id number] [address] STATES [facility] MCHC (RBC) [Mass/Vol] 34.5 g/dL Normal 30.5-36.0 [facility] Comment on above: Order Comment: Speci men Type: BLOOD SPECIMENOrdering Facility: [facility] Address: [address] Performed By: #### 5 8410-2 ####[facility] LABCLIA [id number] [address] [place] MCV (RBC) [Entitic vol] 92.7 fL Normal 80.0-100.0 [facility] Comment on above: Order Comment: Speci men Type: BLOOD SPECIMENOrdering Facility: [facility] Address: [address] Performed By: #### 5 8410-2 ####[facility] LABIA [id number] [place] [address] [place] Nucleated RBC (Bld) [#/Vol] 10*3/uL Normal <0.01 [facility] Comment on above: Order Comment: Speci men Type: BLOOD SPECIMENOrdering Facility: [facility] Address: [address] [place] [address] Performed By: #### 5 8410-2 ####[facility] LABCLIA [id number] [place] [address] [place] Platelet mean volume (Bld) [Entitic vol] 11.6 fL Normal 9.0-12.7 [facility] Comment on above: Order Comment: Speci men Type: BLOOD SPECIMENOrdering Facility: [facility] Address: [address] Performed By: #### 5 8410-2 ####[facility] LABIA [id number] [place] [address] [place] Platelets (Bld) [#/Vol] 159 10*3/uL Normal 150-400 [facility] Comment on above: Order Comment: Speci men Type: BLOOD SPECIMENOrdering Facility: [facility] Address: [address] [place] [address] Performed By: #### 5 8410-2 ####[facility] [id number] [place] [address] [place] RBC (Bld) [#/Vol] 3.31 10*6/uL Low 4.20-6.00 [facility] Comment on above: Order Comment: Speci men Type: BLOOD SPECIMENOrdering Facility: [facility] Address: [address] [place] [address] Performed By: #### 5 8410-2 ####[facility] [id number] [place] [address] [place] WBC (Bld) [#/Vol] 13.57 10*3/uL High 3.70-11.00 [facility] Comment on above: Order Comment: Speci men Type: BLOOD SPECIMENOrdering Facility: [facility] Address: [address] [place] [address] Performed By: #### 5 8410-2 ####[facility] [id number] [place] [address] [place] Erythrocyte distribution width (RBC) [Ratio] 12.5 % Normal 11.5-15.0 [facility] Comment on above: Order Comment: Speci men Type: BLOOD SPECIMENOrdering Facility: [facility] Address: [address] [place] [address] Performed By: #### 5 8410-2 ####[facility] [id number] [place] [address] [place] Hematocrit (Bld) [Volume fraction] 25.7 % Low 39.0-51.0 [facility] Comment on above: Order Comment: Speci men Type: BLOOD SPECIMENOrdering Facility: [facility] Address: [address] [place] [address] Performed By: #### 5 8410-2 ####[facility] LABCLIA [id number] [place] [address] [place] Hemoglobin (Bld) [Mass/Vol] 9.1 g/dL Low 13.0-17.0 [facility] Comment on above: Order Comment: Speci men Type: BLOOD SPECIMENOrdering Facility: [facility] Address: [address] [place] [address] Performed By: #### 5 8410-2 ####[facility] LABCLIA [id number] [place] [address] [place] MCH (RBC) [Entitic mass] 32.4 pg Normal 26.0-34.0 [facility] Comment on above: Order Comment: Speci men Type: BLOOD SPECIMENOrdering Facility: [facility] Address: [address] [place] [address] Performed By: #### 5 8410-2 ####[facility] LABIA [id number] [place] [address] [place] MCHC (RBC) [Mass/Vol] 35.4 g/dL Normal 30.5-36.0 [facility] Comment on above: Order Comment: Speci men Type: BLOOD SPECIMENOrdering Facility: [facility] Address: [address] [place] [address] Performed By: #### 5 8410-2 ####[facility] LABIA [id number] [place] [address] [place] MCV (RBC) [Entitic vol] 91.5 fL Normal 80.0-100.0 [facility] Comment on above: Order Comment: Speci men Type: BLOOD SPECIMENOrdering Facility: [facility] Address: [address] [address] Performed By: #### 5 8410-2 ####[facility] LABIA [id number] [place] [address] [place] Nucleated RBC (Bld) [#/Vol] 10*3/uL Normal <0.01 [facility] Comment on above: Order Comment: Speci men Type: BLOOD SPECIMENOrdering Facility: [facility] Address: [address] [place] [address] Performed By: #### 5 8410-2 ####[facility] [id number] [place] [address] [place] Platelet mean volume (Bld) [Entitic vol] 11.1 fL Normal 9.0-12.7 [facility] Comment on above: Order Comment: Speci men Type: BLOOD SPECIMENOrdering Facility: [facility] Address: [address] [place] [address] Performed By: #### 5 8410-2 ####[facility] [id number] [place] [address] [place] Platelets (Bld) [#/Vol] 138 10*3/uL Low 150-400 [facility] Comment on above: Order Comment: Speci men Type: BLOOD SPECIMENOrdering Facility: [facility] Address: [address] [place] [address] Result Comment: No c lot detected.Results checked and verified. Performed By: #### 5 8410-2 ####[facility] [id number] [place] [address] [place] RBC (Bld) [#/Vol] 2.81 10*6/uL Low 4.20-6.00 [facility] Comment on above: Order Comment: Speci men Type: BLOOD SPECIMENOrdering Facility: [facility] Address: [address] [place] [address] Performed By: #### 5 8410-2 ####[facility] LABIA [id number] [place] [address] [place] WBC (Bld) [#/Vol] 11.86 10*3/uL High 3.70-11.00 [facility] Comment on above: Order Comment: Speci men Type: BLOOD SPECIMENOrdering Facility: [facility] Address: [address] [id number] Performed By: #### 5 8410-2 ####[facility] LABCLIA [id number] [address] [place]PE[place] 08-29-2022 CNPN Telephone (ANGEL) -- OLAF BRIONES ([id number]) 1945 M Date Time Provider Department 08/29/22 [...] Hematuria [R31.9] 08/27/2022 Coronary artery disease involving ute hinton*08/27/2022 Adverse reaction to antiplatelet agent [T45.7X5*08/27/2022 Myocardial infarction (HCC) [I21.9] 08/27/2022 Primary hypertension [I10] 08/27/2022 Type 2 diabetes mellitus without complication, *08/27/2022 Leukocytosis [D72.829] 08/27/2022 Malnutrition of mild degree (HCC) [E44.1] 08/29/2022 Encounter Status:Closed by DAVID ANDREWS on 08/29/22 Normal [facility] CONSULT PROGon 08-29-2022 CONSULT PROG HNO ID: [id number] Author: Rodriguez Miller APRN.CRYPTOANALYSIS TEACHER Service: Cardiovascular Medicine Author Type: Nurse Practitioner Type: Consult Progress Note Filed: 08/29/2022 11:18 AM Note Text: [facility] CONSULT PROGRESS NOTE (Template ID [id number]) CONSULTING SERVICE: Cardiology: Consult Team PRIMARY SERVICE: [...] 08/29/2022 0700 Gross per 24 hour Intake 01951.5 ml Output 35026 ml Net 5853.5 ml TELEMETRY: SR IMAGING: [...] echocardiographic exam for comparison. Stent card from [facility] from 08/20/2022 DATA: Laboratory: Recent Labs 08/29/22 [...] (2000) and TURP (2006) who presented to [facility] (more content not included)... Normal [facility] Comprehensive metabolic 2000 panelon 08-29-2022 Albumin [Mass/Vol] 4.2 g/dL Normal 3.9-4.9 [facility] Comment on above: Order Comment: Speci men Type: BLOOD SPECIMENOrdering Facility: [facility] Address: [address] [address] Performed By: #### 2 4323-8 ####[facility] LABCLIA [id number] [place] [address] [place] ALP [Catalytic activity/Vol] 116 U/L High 38-113 [facility] Comment on above: Order Comment: Speci men Type: BLOOD SPECIMENOrdering Facility: [facility] Address: [address] [address] Performed By: #### 2 4323-8 ####[facility] LABCLIA [id number] [place] [address] [place] ALT [Catalytic activity/Vol] 20 U/L Normal 10-54 [facility] Comment on above: Order Comment: Speci men Type: BLOOD SPECIMENOrdering Facility: [facility] Address: [address] [address] Performed By: #### 2 4323-8 ####[facility] LABCLIA [id number] [place] [address] [place] Anion gap [Moles/Vol] 13 mmol/L Normal 9-18 [facility] Comment on above: Order Comment: Speci men Type: BLOOD SPECIMENOrdering Facility: [facility] Address: [address] [address] Performed By: #### 2 4323-8 ####[facility] LABCLIA [id number] [place] [address] [place] AST [Catalytic activity/Vol] 19 U/L Normal 14-40 [facility] Comment on above: Order Comment: Speci men Type: BLOOD SPECIMENOrdering Facility: [facility] Address: [address] [place] [address] Performed By: #### 2 4323-8 ####[facility] LABCLIA [id number] [place] [address] [place] Bilirubin [Mass/Vol] 0.4 mg/dL Normal 0.2-1.3 [facility] Comment on above: Order Comment: Speci men Type: BLOOD SPECIMENOrdering Facility: [facility] Address: [address] [place] [address] Performed By: #### 2 4323-8 ####[facility] LABCLIA [id number] [place] [address] [place] Calcium [Mass/Vol] 9.4 mg/dL Normal 8.5-10.2 [facility] Comment on above: Order Comment: Speci men Type: BLOOD SPECIMENOrdering Facility: [facility] Address: [address] [place] [address] Performed By: #### 2 4323-8 ####[facility] LABCLIA [id number] [place] [address] [place] Chloride [Moles/Vol] 102 mmol/L Normal 97-105 [facility] Comment on above: Order Comment: Speci men Type: BLOOD SPECIMENOrdering Facility: [facility] Address: [address] [place] [address] Performed By: #### 2 4323-8 ####[facility] LABCLIA [id number] [place] [address] [place] CO2 [Moles/Vol] 25 mmol/L Normal 22-30 [facility] Comment on above: Order Comment: Speci men Type: BLOOD SPECIMENOrdering Facility: [facility] Address: [address] [address] Performed By: #### 2 4323-8 ####[facility] [id number] [address] STATES OF [facility] Creatinine [Mass/Vol] 0.86 mg/dL Normal 0.73-1.22 [facility] Comment on above: Order Comment: Speci men Type: BLOOD SPECIMENOrdering Facility: [facility] Address: [address] [address] Performed By: #### 2 4323-8 ####[facility] [id number] [address] [place] ESTIMATED GLOMERULAR FILTRATION RATE 89 mL/min/1.73m??? Normal >=60 [facility] Comment on above: Order Comment: Janiei men Type: BLOOD SPECIMENOrdering Facility: [facility] Address: [address] [place] [address] Result Comment: Mariaelena mated Glomerular Filtration Rate [...] actual GFR. Performed By: #### 2 4323-8 ####[facility] [id number] [place] [address] [place] Glucose [Mass/Vol] 166 mg/dL High 74-99 [facility] Comment on above: Order Comment: Portia tay Type: BLOOD SPECIMENOrdering Facility: [facility] Address: [address] [place] [address] Result Comment: The [place] [employer] Association (ADA) provides guidance for cutoff [...] Standards of Medical Care in Diabetes 2016, [place] [employer]. Diabetes Care. 2016.39(Suppl 1). Performed By: #### 2 4323-8 ####[facility] LABCLIA [id number] [place] [address] [place] Potassium [Moles/Vol] 3.9 mmol/L Normal 3.7-5.1 [facility] Comment on above: Order Comment: Speci men Type: BLOOD SPECIMENOrdering Facility: [facility] Address: [address] [place] [address] Performed By: #### 2 4323-8 ####[facility] LABIA [id number] [place] [address] [place] Protein [Mass/Vol] 6.6 g/dL Normal 6.3-8.0 [facility] Comment on above: Order Comment: Speci men Type: BLOOD SPECIMENOrdering Facility: [facility] Address: [address] [place] [address] Performed By: #### 2 4323-8 ####[facility] LABCLIA [id number] [place] [address] [place] Sodium [Moles/Vol] 140 mmol/L Normal 136-144 [facility] Comment on above: Order Comment: Speci men Type: BLOOD SPECIMENOrdering Facility: [facility] Address: [address] [address] Performed By: #### 2 4323-8 ####[facility] LABCLIA [id number] [place] [address] [place] Urea nitrogen [Mass/Vol] 21 mg/dL Normal 9-24 [facility] Comment on above: Order Comment: Speci men Type: BLOOD SPECIMENOrdering Facility: [facility] Address: [address] Performed By: #### 2 4323-8 ####[facility] LABCLIA [id number] [place] [address] [place] Albumin [Mass/Vol] 3.6 g/dL Low 3.9-4.9 [facility] Comment on above: Order Comment: Speci men Type: BLOOD SPECIMENOrdering Facility: [facility] Address: [address] Performed By: #### 2 4323-8 ####[facility] LABCLIA [id number] [place] [address] [place] ALP [Catalytic activity/Vol] 96 U/L Normal 38-113 [facility] Comment on above: Order Comment: Speci men Type: BLOOD SPECIMENOrdering Facility: [facility] Address: [address] Performed By: #### 2 4323-8 ####[facility] LABCLIA [id number] [place] [address] [place] ALT [Catalytic activity/Vol] 18 U/L Normal 10-54 [facility] Comment on above: Order Comment: Speci men Type: BLOOD SPECIMENOrdering Facility: [facility] Address: [address] [id number] Performed By: #### 2 4323-8 ####[facility] LABCLIA [id number] [place] [address] [place] Anion gap [Moles/Vol] 10 mmol/L Normal 9-18 [facility] Comment on above: Order Comment: Speci men Type: BLOOD SPECIMENOrdering Facility: [facility] Address: [address] Performed By: #### 2 4323-8 ####[facility] LABCLIA [id number] [place] [address] [place] AST [Catalytic activity/Vol] 16 U/L Normal 14-40 [facility] Comment on above: Order Comment: Speci men Type: BLOOD SPECIMENOrdering Facility: [facility] Address: [address] [place] [address] Performed By: #### 2 4323-8 ####[facility] LABCLIA [id number] [place] [address] [place] Bilirubin [Mass/Vol] 0.5 mg/dL Normal 0.2-1.3 [facility] Comment on above: Order Comment: Speci men Type: BLOOD SPECIMENOrdering Facility: [facility] Address: [address] [place] [address] Performed By: #### 2 4323-8 ####[facility] LABCLIA [id number] [place] [address] [place] Calcium [Mass/Vol] 8.7 mg/dL Normal 8.5-10.2 [facility] Comment on above: Order Comment: Speci men Type: BLOOD SPECIMENOrdering Facility: [facility] Address: [address] [place], [place] [address] Performed By: #### 2 4323-8 ####[facility] LABCLIA [id number] [place] [address] [place] Chloride [Moles/Vol] 105 mmol/L Normal 97-105 [facility] Comment on above: Order Comment: Speci men Type: BLOOD SPECIMENOrdering Facility: [facility] Address: [address] [place], [place] [address] Performed By: #### 2 4323-8 ####[facility] LABCLIA [id number] [place] [address] [place] CO2 [Moles/Vol] 24 mmol/L Normal 22-30 [facility] Comment on above: Order Comment: Speci men Type: BLOOD SPECIMENOrdering Facility: [facility] Address: [address] [address] Performed By: #### 2 4323-8 ####[facility] LABIA [id number] [place] [address] [place] Creatinine [Mass/Vol] 0.78 mg/dL Normal 0.73-1.22 [facility] Comment on above: Order Comment: Speci men Type: BLOOD SPECIMENOrdering Facility: [facility] Address: [address] [address] Performed By: #### 2 4323-8 ####[facility] LABIA [id number] [place] [address] [place] ESTIMATED GLOMERULAR FILTRATION RATE 92 mL/min/1.73m??? Normal >=60 [facility] Comment on above: Order Comment: Speci men Type: BLOOD SPECIMENOrdering Facility: [facility] Address: [address] [place] [address] Result Comment: Mariaelena mated Glomerular Filtration Rate [...] actual GFR. Performed By: #### 2 4323-8 ####[facility] LABIA [id number] [place] [address] [place] Glucose [Mass/Vol] 217 mg/dL High 74-99 [facility] Comment on above: Order Comment: Speci men Type: BLOOD SPECIMENOrdering Facility: [facility] Address: [address] [address] Result Comment: The [place] Diabetes Association (ADA) provides guidance for cutoff [...] Standards of Medical Care in Diabetes 2016, [place] [employer]. Diabetes Care. 2016.39(Suppl 1). Performed By: #### 2 4323-8 ####[facility] LABCLIA [id number] [place] [address] [place] Potassium [Moles/Vol] 3.9 mmol/L Normal 3.7-5.1 [facility] Comment on above: Order Comment: Speci men Type: BLOOD SPECIMENOrdering Facility: [facility] Address: [address] [place] [address] Performed By: #### 2 4323-8 ####[facility] LABIA [id number] [place] [address] [place] Protein [Mass/Vol] 5.6 g/dL Low 6.3-8.0 [facility] Comment on above: Order Comment: Speci men Type: BLOOD SPECIMENOrdering Facility: [facility] Address: [address] [address] Performed By: #### 2 4323-8 ####[facility] LABCLIA [id number] [place] [address] [place] Sodium [Moles/Vol] 139 mmol/L Normal 136-144 [facility] Comment on above: Order Comment: Speci men Type: BLOOD SPECIMENOrdering Facility: [facility] Address: [address] [address] Performed By: #### 2 4323-8 ####[facility] LABCLIA [id number] [place] [address] [place] Urea nitrogen [Mass/Vol] 14 mg/dL Normal 9-24 [facility] Comment on above: Order Comment: Speci men Type: BLOOD SPECIMENOrdering Facility: [facility] Address: [address] [place], [place] [address] Performed By: #### 2 4323-8 ####[facility] LABCLIA [id number] [place] [address] [place] Albumin [Mass/Vol] 3.6 g/dL Low 3.9-4.9 [facility] Comment on above: Order Comment: Speci men Type: BLOOD SPECIMENOrdering Facility: [facility] Address: [address] [place], [place] [address] Performed By: #### 2 777-1, , ####[facility] LABCLIA [id number] [place] [address] [place] ALP [Catalytic activity/Vol] 98 U/L Normal 38-113 [facility] Comment on above: Order Comment: Speci men Type: BLOOD SPECIMENOrdering Facility: [facility] Address: [address] [place], [place] [address] Performed By: #### 2 777-1, , ####[facility] LABCLIA [id number] [facility] [place] [address] [place] ALT [Catalytic activity/Vol] 19 U/L Normal 10-54 [facility] Comment on above: Order Comment: Speci men Type: BLOOD SPECIMENOrdering Facility: [facility] Address: [address] [place] [address] Performed By: #### 2 777-1, , ####[facility] LABCLIA [id number] [facility] [place] [id number] [place] Anion gap [Moles/Vol] 12 mmol/L Normal 9-18 [facility] Comment on above: Order Comment: Speci men Type: BLOOD SPECIMENOrdering Facility: [facility] Address: [address] [place] [address] Performed By: #### 2 777-1, , ####[facility] LABCLIA [id number] [place] [address] [place] AST [Catalytic activity/Vol] 18 U/L Normal 14-40 [facility] Comment on above: Order Comment: Speci men Type: BLOOD SPECIMENOrdering Facility: [facility] Address: [address] [place] [address] Performed By: #### 2 777-1, 82809-9, ####[facility] LABCLIA [id number] [place] [address] [place] Bilirubin [Mass/Vol] 0.7 mg/dL Normal 0.2-1.3 [facility] Comment on above: Order Comment: Speci men Type: BLOOD SPECIMENOrdering Facility: [facility] Address: [address] [place] [address] Performed By: #### 2 777-1, , ####[facility] LABCLIA [id number] [place] [address] [place] Calcium [Mass/Vol] 8.3 mg/dL Low 8.5-10.2 [facility] Comment on above: Order Comment: Speci men Type: BLOOD SPECIMENOrdering Facility: [facility] Address: [address] [place] [address] Performed By: #### 2 777-1, 82571-0, ####[facility] LABCLIA [id number] [place] [address] [place] Chloride [Moles/Vol] 102 mmol/L Normal 97-105 [facility] Comment on above: Order Comment: Speci men Type: BLOOD SPECIMENOrdering Facility: [facility] Address: [address] [address] Performed By: #### 2 777-1, 89695-3, ####[facility] LABCLIA [id number] [place] [address] [place] CO2 [Moles/Vol] 22 mmol/L Normal 22-30 [facility] Comment on above: Order Comment: Speci men Type: BLOOD SPECIMENOrdering Facility: [facility] Address: [address] [place] [address] Performed By: #### 2 777-1, , ####[facility] LABCLIA [id number] [place] [address] [place] Creatinine [Mass/Vol] 0.69 mg/dL Low 0.73-1.22 [facility] Comment on above: Order Comment: Speci men Type: BLOOD SPECIMENOrdering Facility: [facility] Address: [address] [place] [address] Performed By: #### 2 777-1, , ####[facility] LABCLIA [id number] [place] [address] [place] ESTIMATED GLOMERULAR FILTRATION RATE 95 mL/min/1.73m??? Normal >=60 [facility] Comment on above: Order Comment: Speci men Type: BLOOD SPECIMENOrdering Facility: [facility] Address: [address] [place] [address] Result Comment: Mariaelena mated Glomerular Filtration Rate [...] GFR. Performed By: #### 2 777-1, , ####[facility] LABCLIA [id number] [place] [address] [place] Glucose [Mass/Vol] 202 mg/dL High 74-99 [facility] Comment on above: Order Comment: Speci men Type: BLOOD SPECIMENOrdering Facility: [facility] Address: [address] [place] [address] Result Comment: The [place] Diabetes Association (ADA) provides guidance for cutoff [...] Standards of Medical Care in Diabetes 2016, [place] [employer]. Diabetes Care. 2016.39(Suppl 1). Performed By: #### 2 777-1, 61581-3, 58921-5 ####[facility] LABIA [id number] [place] [address] [place] Potassium [Moles/Vol] 4.1 mmol/L Normal 3.7-5.1 [facility] Comment on above: Order Comment: Speci men Type: BLOOD SPECIMENOrdering Facility: [facility] Address: [address] [place], [place] [address] Performed By: #### 2 777-1, 42922-7, 38020-9 ####[facility] LABIA [id number] [place] [address] [place] Protein [Mass/Vol] 5.5 g/dL Low 6.3-8.0 [facility] Comment on above: Order Comment: Speci men Type: BLOOD SPECIMENOrdering Facility: [facility] Address: [address] [place] [address] Performed By: #### 2 777-1, 10444-1, ####[facility] LABCLIA [id number] [place] [address] [place] Sodium [Moles/Vol] 136 mmol/L Normal 136-144 [facility] Comment on above: Order Comment: Speci men Type: BLOOD SPECIMENOrdering Facility: [facility] Address: [address] [place], [place] [address] Performed By: #### 2 777-1, 08924-6, ####[facility] LABIA [id number] [place] [address] [place] Urea nitrogen [Mass/Vol] 14 mg/dL Normal 9-24 [facility] Comment on above: Order Comment: Speci men Type: BLOOD SPECIMENOrdering Facility: [facility] Address: [address] [place] [address] Performed By: #### 2 777-1, 33280-2, ####[facility] LABIA [id number] [place] [address] [place] Albumin [Mass/Vol] 3.0 g/dL Low 3.9-4.9 [facility] Comment on above: Order Comment: Speci men Type: BLOOD SPECIMENOrdering Facility: [facility] Address: [address] [place] [address] Result Comment: Resu lt rechecked. Performed By: #### 1 9123-9, 27708-18, ####[facility] LABIA [id number] [place] [id number] [place] ALP [Catalytic activity/Vol] 88 U/L Normal 38-113 [facility] Comment on above: Order Comment: Speci men Type: BLOOD SPECIMENOrdering Facility: [facility] Address: [address] [place], [place] [id number] Performed By: #### 1 9123-9, 27708-18, ####[facility] LABCLIA [id number] [place] [address] [place] ALT [Catalytic activity/Vol] 15 U/L Normal 10-54 [facility] Comment on above: Order Comment: Speci men Type: BLOOD SPECIMENOrdering Facility: [facility] Address: [address] [place] [address] Performed By: #### 1 9123-9, 27708-18, ####[facility] LABCLIA [id number] [place] [address] [place] Anion gap [Moles/Vol] 14 mmol/L Normal 9-18 [facility] Comment on above: Order Comment: Speci men Type: BLOOD SPECIMENOrdering Facility: [facility] Address: [address] [place] [address] Performed By: #### 1 9123-9, 27708-18, ####[facility] LABIA [id number] [place] [address] [place] AST [Catalytic activity/Vol] 16 U/L Normal 14-40 [facility] Comment on above: Order Comment: Speci men Type: BLOOD SPECIMENOrdering Facility: [facility] Address: [address] [place] [address] Performed By: #### 1 9123-9, 27708-18, ####[facility] LABCLIA [id number] [place] [address] [place] Bilirubin [Mass/Vol] 0.6 mg/dL Normal 0.2-1.3 [facility] Comment on above: Order Comment: Speci men Type: BLOOD SPECIMENOrdering Facility: [facility] Address: [address] [place] [address] Performed By: #### 1 9123-9, 27708-18, 15198-1 ####[facility] LABCLIA [id number] [place] [address] [place] Calcium [Mass/Vol] 8.4 mg/dL Low 8.5-10.2 [facility] Comment on above: Order Comment: Speci men Type: BLOOD SPECIMENOrdering Facility: [facility] Address: [address] [place] [address] Performed By: #### 1 9123-9, 2777-, 33686-4 ####[facility] LABCLIA [id number] [place] [address] [place] Chloride [Moles/Vol] 103 mmol/L Normal 97-105 [facility] Comment on above: Order Comment: Speci men Type: BLOOD SPECIMENOrdering Facility: [facility] Address: [address] [place] [address] Performed By: #### 1 9123-9, 27708-18, 22200-3 ####[facility] LABCLIA [id number] [place] [address] [place] CO2 [Moles/Vol] 20 mmol/L Low 22-30 [facility] Comment on above: Order Comment: Speci men Type: BLOOD SPECIMENOrdering Facility: [facility] Address: [address] [place] [address] Performed By: #### 1 9123-9, 27708-18, 73956-6 ####[facility] LABCLIA [id number] [place] [address] [place] Creatinine [Mass/Vol] 0.64 mg/dL Low 0.73-1.22 [facility] Comment on above: Order Comment: Speci men Type: BLOOD SPECIMENOrdering Facility: [facility] Address: [address] [place], [place] [address] Performed By: #### 1 9123-9, 277-, 91988-5 ####[facility] LABCLIA [id number] [place] [address] [place] ESTIMATED GLOMERULAR FILTRATION RATE 98 mL/min/1.73m??? Normal >=60 [facility] Comment on above: Order Comment: Portia tay Type: BLOOD SPECIMENOrdering Facility: [facility] Address: [address] [place] [phone] Result Comment: Mariaelena mated Glomerular Filtration Rate [...] GFR. Performed By: #### 1 9123-9, 2777-, 64319-6 ####[facility] LABCLIA [id number] [place] [address] [place] Glucose [Mass/Vol] 186 mg/dL High 74-99 [facility] Comment on above: Order Comment: Portia tay Type: BLOOD SPECIMENOrdering Facility: [facility] Address: [address] Result Comment: The [place] Diabetes Association (ADA) provides guidance for cutoff [...] Standards of Medical Care in Diabetes 2016, [place] [employer]. Diabetes Care. 2016.39(Suppl 1). Performed By: #### 1 9123-9, 2777-, 59145-8 ####[facility] LABCLIA [id number] [place] [id number] [place] Potassium [Moles/Vol] 4.0 mmol/L Normal 3.7-5.1 [facility] Comment on above: Order Comment: Speci men Type: BLOOD SPECIMENOrdering Facility: [facility] Address: [address] [place] [address] Performed By: #### 1 9123-9, 2776-02, ####[facility] LABCLIA [id number] [place] [address] [place] Protein [Mass/Vol] 5.1 g/dL Low 6.3-8.0 [facility] Comment on above: Order Comment: Speci men Type: BLOOD SPECIMENOrdering Facility: [facility] Address: [address] [place] [address] Performed By: #### 1 9123-9, 2776-02, ####[facility] LABCLIA [id number] [place] [address] [place] Sodium [Moles/Vol] 137 mmol/L Normal 136-144 [facility] Comment on above: Order Comment: Speci men Type: BLOOD SPECIMENOrdering Facility: [facility] Address: [place] Performed By: #### 1 9123-9, 2776-02, ####[facility] LABIA [id number] [place] [address] [place] Urea nitrogen [Mass/Vol] 12 mg/dL Normal 9-24 [facility] Comment on above: Order Comment: Speci men Type: BLOOD SPECIMENOrdering Facility: [facility] Address: [place] Performed By: #### 1 9123-9, 2776-02, ####[facility] LABCLIA [id number] [facility] [address] [address] [place] ECG COMPLETEon 08-29-2022 ECG COMPLETE Ventricular Rate : 7 0 BPM Atrial Rate : 70 BPM P-R Interval : 186 ms QRS Duration : 102 ms Q-T Interval : 454 ms QTC Calculation(Bazett) : 490 ms Calculated P [place] : 44 degrees Calculated R [place] : -26 degrees Calculated T [place] : -27 degrees SINUS RHYTHM WITH PREMATURE ATRIAL COMPLEXES NONSPECIFIC ST ABNORMALITY ABNORMAL ECG Confirmed by ERICK STEWARD MD ([id number]) on 08/31/2022 7:45:00 AM NAME : OLAF BRIONES PID : [id number] : 1945 Gender : Male Race : Unknown ORD : [id number] Procedure Date : Aug 29 2022 00:07:53 Edit Date : Aug 31 2022 07:45:03 Diagnosis: SINUS RHYTHM WITH PREMATURE ATRIAL COMPLEXES NONSPECIFIC ST ABNORMALITY ABNORMAL ECG Confirmed by ERICK STEWARD MD (65) on 08/31/2022 7:45:00 AM Test Reason : Post-OP Location : [address] [place], [place] [address] Overread By : ERICK STEWARD MD Edited By : ERICK STEWARD MD Referred By : , Acquired by : NAHOMI RINLADI [facility] Magnesium SerPl-ncon 08-29 Magnesium [Mass/Vol] 2.1 mg/dL Normal 1.7-2.3 [facility] Comment on above: Order Comment: Speci men Type: BLOOD SPECIMENOrdering Facility: [facility] Address: [address] [place], [place] [phone] Performed By: #### 2 777-1, 87728-4, 27176-7 ####[facility] LABIA [id number] [address] STATES OF [facility] Magnesium [Mass/Vol] 1.8 mg/dL Normal 1.7-2.3 [facility] Comment on above: Order Comment: Speci men Type: BLOOD SPECIMENOrdering Facility: [facility] Address: [address] [place], [place] [phone] Performed By: #### 1 9123-9, 2777-1, 08432-5 ####[facility] LABCLIA [id number] [address] [address] [place] PT panel Coag (PPP)on 2022 INR Coag (PPP) [Relative time] 1.0 {INR} Normal 0.9-1.3 [facility] Comment on above: Order Comment: Portia tay Type: BLOOD SPECIMENOrdering Facility: [facility] Address: [address] [place] [address] Result Comment: Mago min K Antagonist (VKA) Therapeutic Range: INR 2 to 3 (Target INR of 2.5) Note: For patients treated with VKA drugs, such as warfarin, the [place] [employer] 2012 Guideline recommends [...] Chest 2012, 141:7S-47S Daniel RA, et al. [facility] 2017, 70: 252-289 Performed By: #### 3 4528-0, 63782-3 ####[facility] LABIA [id number] [place] [address] [place] PT Coag (PPP) [Time] 10.7 s Normal 9.7-13.0 [facility] Comment on above: Order Comment: Portia tay Type: BLOOD SPECIMENOrdering Facility: [facility] Address: [address] [place] [address] Performed By: #### 3 4528-0, 48544-2 ####[facility] LABIA [id number] [address] [place] INR Coag (PPP) [Relative time] 1.1 {INR} Normal 0.9-1.3 [facility] Comment on above: Order Comment: Portia tay Type: BLOOD SPECIMENOrdering Facility: [facility] Address: [address] [place] [phone] Result Comment: Mago min K Antagonist (VKA) Therapeutic Range: INR 2 to 3 (Target INR of 2.5) Note: For patients treated with VKA drugs, such as warfarin, the [place] [employer] 2012 Guideline recommends [...] Chest 2012, 141:7S-47S Daniel RA, et al. [facility] 2017, 70: 252-289 Performed By: #### 3 4528-0, 37203-3 ####[facility] [id number] [place] [address] [place] PT Coag (PPP) [Time] 11.2 s Normal 9.7-13.0 [facility] Comment on above: Order Comment: Speci men Type: BLOOD SPECIMENOrdering Facility: [facility] Address: [address] [place], [place] [phone] Performed By: #### 3 4528-0, 16580-6 ####[facility] [id number] [place] [address] [place] Phosphate SerPl-mCncon 08-29 Phosphate [Mass/Vol] 4.9 mg/dL High 2.7-4.8 [facility] Comment on above: Order Comment: Janiei jasvir Type: BLOOD SPECIMENOrdering Facility: [facility] Address: [address] [place], [place] [phone] Performed By: #### 2 777-1, 37608-6, 34050-7 ####[facility] LABCLIA [id number] [place] [address] [place] Phosphate [Mass/Vol] 4.2 mg/dL Normal 2.7-4.8 [facility] Comment on above: Order Comment: Speci men Type: BLOOD SPECIMENOrdering Facility: [facility] Address: [address] [place] [address] Performed By: #### 1 9123-9, 2777-1, 31757-5 ####[facility] LABCLIA [id number] [place] [address] [place] THERAPY NTon 08-29-2022 THERAPY NT HNO ID: [id number] Author: Jenna Duggan, PT Service: Physical Therapy Author Type: Physical Therapist Type: Therapy (PT/OT/Speech/Resp) Filed: 08/29/2022 2:51 PM Note Text: Physical Therapy Evaluation SERVICE DATE: 08/29/2022 SERVICE TIME: 1403 to 1438 ROOM: [place] [address] Recommended Discharge Disposition: Home Anticipated Discharge Needs: [...] HLD, DM, recent STEMI (08/20/2022), transferred from [facility] for gross hematuria. Currently with 18Fr 3-way catheter on CBI. 08/28/22: s/p cystoscopy, clot evacuation, cystolitholapaxy, TURP. Admitted to SICU postoperatively due to pressor requirements and risk of hyponatremia due to length of TURP. 22Fr [address] hernandez placed introp, on traction and CBI. Reason for Hospital Admission: Pt 77y/o male transferred from [facility] for gross hematuria secondary to recent [...] General Deviations/Observations: Diana decreased, Flexed trunk posture -[facility]: 7: Walk 25 feet or more [...] Reduced mobility-other Interventions Provided: Evaluation, Therapeutic Activity (54337), Gait Training (08632) $ Evaluation-Moderate (34798) Billed Units: 1 unit Therapeutic Activity (56900) Treatment Minutes: 7 $ Therapeutic Activity (39296) Billed Units: 0 units Gait Training (62252) Treatment Minutes: 13 $ Gait Training (74156) Billed Units: 1 unit Training AND Education Provided in: Benefits of In-Hospital Mobility, Bed Mobility, Energy Conservation, Equipment, Exer (more content not included)... [facility] THERAPY NT HNO ID: [id number] Author: Alia Smtih OTR/L Service: Occupational Therapy Author Type: Occupational Therapist Type: Therapy (PT/OT/Speech/Resp) Filed: 08/29/2022 11:06 AM Note Text: Occupational Therapy Evaluation SERVICE DATE: 08/29/2022 SERVICE TIME: 0850 to 0921 ROOM: [place] [address] Recommended Discharge Disposition: Home Anticipated Discharge Needs: [...] HLD, DM, recent STEMI (08/20/2022), transferred from [facility] for gross hematuria. Currently with 18Fr 3-way catheter on CBI. 08/28/22: s/p cystoscopy, clot evacuation, cystolitholapaxy, TURP. Admitted to SICU postoperatively due to pressor requirements and risk of hyponatremia due to length of TURP. 22Fr [address] hernandez placed introp, on traction and CBI. 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 [facility] aPTT PPPon 08-29-2022 aPTT Coag (PPP) [Time] 21.0 s Low 23.0-32.4 [facility] Comment on above: Order Comment: Speci men Type: BLOOD SPECIMENOrdering Facility: [facility] Address: [address] [place] [address] Performed By: #### 3 4528-0, 81273-8 ####[facility] [id number] [address] aPTT Coag (PPP) [Time] 26.1 s Normal 23.0-32.4 [facility] Comment on above: Order Comment: Speci men Type: BLOOD SPECIMENOrdering Facility: [facility] Address: [address] [place] [address] Performed By: #### 3 4528-0, 10389-3 ####[facility] [id number] [address] OF [facility] ANES POSTPROC EVALon 023 ANES POSTPROC EVAL HNO ID: [id number] Author: Michelle Day MD Service: ? Author Type: Anesthesiologist Type: Anesthesia Postprocedure Evaluation Filed: 08/28/2022 8:38 PM Note Text: POST ANESTHESIA EVALUATION NOTE : 1945 Procedure Summary Date: 08/28/22 Room / Location: [address] [facility] Anesthesia Start: 1752 Anesthesia [...] August 28, 2022 TIME: 8:37 PM CSN: [id number] [facility] ANES PRE-OPon 08-28-2022 ANES PRE-OP HNO ID: [id number] Author: Weston Avila MD Service: ? Author Type: Anesthesiologist Type: Anesthesia Preprocedure Evaluation Filed: 08/28/2022 6:10 PM Note Text: ANESTHESIOLOGY DAY OF SURGERY NOTE : 1945 Procedure Information Anesthesia Start Date/Time: 08/28/221752 Procedure: CYSTOURETHROSCOPY FULGURATION BLADDER (Bladder) Location: [place] [address] / [facility] Surgeons: David Andrews MD Estimated body mass index is 25.23 kg/m? as calculated from the following: Height as of this encounter: 173 cm (5' 8.11 ). Weight as of this encounter: 75.5 kg (166 lb 7.2 oz). Most recent hematocrit and potassium results: Hematocrit 32.6 08/28/2022 Potassium 4.0 08/28/2022 Relevant Problems CARDIO (+) Coronary artery disease involving ute coronary artery of ute heart without angina pectoris (+) Myocardial infarction [...] as nee (more content not included)... 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 L (more content not included)... [facility] BRIEF OP NOTon 08-28-2022 BRIEF OP NOT HNO ID: [id number] Author: Gt Mcgowan MD Service: Urology Author Type: Resident Type: Brief Op Note Filed: 08/28/2022 7:50 PM Note Text: BRIEF OP NOTE LOG ID: [id number] Surgery/Procedure Date: 08/28/2022 Incision/Procedure Start Time: 6:17 PM Incision Close/Procedure End Time: Surgeon(s)/Proceduralist(s ) and Graduate Assistant(s): Surgeon(s) and Role: * David Andrews MD [...] 2022 TIME: 7:48 PM PAGER/CONTACT #: [phone] Post-op Plan: To SICU Normal [facility] Basic metabolic 2000 panelon 08-28-2022 Anion gap [Moles/Vol] 9 mmol/L Normal 9-18 [facility] Comment on above: Order Comment: Speci men Type: BLOOD SPECIMENOrdering Facility: [facility] Address: [address] [place] [address] Performed By: #### 2 4321-2 ####[facility] LABCLIA [id number] [place] [address] [place] Calcium [Mass/Vol] 8.8 mg/dL Normal 8.5-10.2 [facility] Comment on above: Order Comment: Speci men Type: BLOOD SPECIMENOrdering Facility: [facility] Address: [address] [place] [address] Performed By: #### 2 4321-2 ####[facility] LABCLIA [id number] [place] [address] [place] Chloride [Moles/Vol] 108 mmol/L High 97-105 [facility] Comment on above: Order Comment: Speci men Type: BLOOD SPECIMENOrdering Facility: [facility] Address: [address] [place] [address] Performed By: #### 2 4321-2 ####[facility] LABCLIA [id number] [place] [address] [place] CO2 [Moles/Vol] 24 mmol/L Normal 22-30 [facility] Comment on above: Order Comment: Speci men Type: BLOOD SPECIMENOrdering Facility: [facility] Address: [address] [place] [address] Performed By: #### 2 4321-2 ####[facility] LABIA [id number] [address] STATES OF [facility] Creatinine [Mass/Vol] 0.79 mg/dL Normal 0.73-1.22 [facility] Comment on above: Order Comment: Speci men Type: BLOOD SPECIMENOrdering Facility: [facility] Address: [address] [place] [address] Performed By: #### 2 4321-2 ####[facility] LABIA [id number] [address] [place] ESTIMATED GLOMERULAR FILTRATION RATE 91 mL/min/1.73m??? Normal >=60 [facility] Comment on above: Order Comment: Speci men Type: BLOOD SPECIMENOrdering Facility: [facility] Address: [address] [place] [address] Result Comment: Mariaelena mated Glomerular Filtration Rate [...] actual GFR. Performed By: #### 2 4321-2 ####[facility] LABIA [id number] [place] [address] [place] Glucose [Mass/Vol] 137 mg/dL High 74-99 [facility] Comment on above: Order Comment: Speci men Type: BLOOD SPECIMENOrdering Facility: [facility] Address: [address] [place] [address] Result Comment: The [place] Diabetes Association (ADA) provides guidance for cutoff [...] Standards of Medical Care in Diabetes 2016, [place] [employer]. Diabetes Care. 2016.39(Suppl 1). Performed By: #### 2 4321-2 ####[facility] LABCLIA [id number] [place] [address] [place] Potassium [Moles/Vol] 4.0 mmol/L Normal 3.7-5.1 [facility] Comment on above: Order Comment: Speci men Type: BLOOD SPECIMENOrdering Facility: [facility] Address: [address] [place] [address] Performed By: #### 2 4321-2 ####[facility] LABIA [id number] [place] [address] [place] Sodium [Moles/Vol] 141 mmol/L Normal 136-144 [facility] Comment on above: Order Comment: Speci men Type: BLOOD SPECIMENOrdering Facility: [facility] Address: [address] [place] [address] Performed By: #### 2 4321-2 ####[facility] LABIA [id number] [place] [address] [place] Urea nitrogen [Mass/Vol] 18 mg/dL Normal 9-24 [facility] Comment on above: Order Comment: Speci men Type: BLOOD SPECIMENOrdering Facility: [facility] Address: [address] [place] [address] Performed By: #### 2 4321-2 ####[facility] LABIA [id number] [place] [address] [place] CALCULI ANALYSISon 3 Calculus analysis [Interp] Normal [facility] Comment on above: Order Comment: Speci men Type: CALCULUS SPECIMENOrdering Facility: [facility] Address: [address] [place] [address] Result Comment: This test was developed and its performance characteristics determined by [facility]'s [facility] Path[facility] Laboratory Medicine [facility] ([facility]). It has not been cleared or approved by the FDA. [facility] is regulated under CLIA as qualified to perform high-complexity testing. This test is used for clinical purposes. It should not be regarded as investigational or for research. Performed By: #### C SA ####[facility] LABIA [id number] [address] CALCULUS COLOR BROWN Normal [facility] Comment on above: Order Comment: Speci men Type: CALCULUS SPECIMENOrdering Facility: [facility] Address: [address] [place] [address] Performed By: #### C SA ####[facility] LABCLIA [id number] [address] CALCULUS COMPOSITION 1 50% Calcium Oxala te Monohydrate Normal [facility] Comment on above: Order Comment: Speci men Type: CALCULUS SPECIMENOrdering Facility: [facility] Address: [address] [place] [address] Performed By: #### C SA ####[facility] LABCLIA [id number] [address] OF [facility] CALCULUS COMPOSITION 2 40% Calcium Oxala te Dihydrate Normal [facility] Comment on above: Order Comment: Speci men Type: CALCULUS SPECIMENOrdering Facility: [facility] Address: [address] [place] [address] Performed By: #### C SA ####[facility] LABIA [id number] [address] OF [facility] CALCULUS COMPOSITION 3 10% Minor Components Normal [facility] Comment on above: Order Comment: Speci men Type: CALCULUS SPECIMENOrdering Facility: [facility] Address: [address] [place] [address] Performed By: #### C SA ####[facility] LABIA [id number] [address] CALCULUS SIZE AND WT 0.4 X 0.3 X 0.1 CM 0.0163 GRAMS Normal [facility] Comment on above: Order Comment: Speci men Type: CALCULUS SPECIMENOrdering Facility: [facility] Address: [address] [place] [address] Performed By: #### C SA ####[facility] LABIA [id number] [address] [place] CALCULUS TYPE Calculus, CALCULI/CALCULUS Normal [facility] Comment on above: Order Comment: Speci men Type: CALCULUS SPECIMENOrdering Facility: [facility] Address: [address] [place] [address] Performed By: #### C SA ####[facility] [id number] [place] [address] [place] CBC panel Auto (Bld)on 08-28 Erythrocyte distribution width (RBC) [Ratio] 12.7 % Normal 11.5-15.0 [facility] Comment on above: Order Comment: Speci men Type: BLOOD SPECIMENOrdering Facility: [facility] Address: [address] [place] [address] Performed By: #### 5 8410-2 ####[facility] [id number] [place] [address] [place] Hematocrit (Bld) [Volume fraction] 35.7 % Low 39.0-51.0 [facility] Comment on above: Order Comment: Speci men Type: BLOOD SPECIMENOrdering Facility: [facility] Address: [address] [place] [address] Performed By: #### 5 8410-2 ####[facility] LABIA [id number] [place] [address] [place] Hemoglobin (Bld) [Mass/Vol] 12.1 g/dL Low 13.0-17.0 [facility] Comment on above: Order Comment: Speci men Type: BLOOD SPECIMENOrdering Facility: [facility] Address: [address] [place] [address] Performed By: #### 5 8410-2 ####[facility] LABIA [id number] [place] [address] [place] MCH (RBC) [Entitic mass] 31.8 pg Normal 26.0-34.0 [facility] Comment on above: Order Comment: Speci men Type: BLOOD SPECIMENOrdering Facility: [facility] Address: [address] [place] [address] Performed By: #### 5 8410-2 ####[facility] [id number] [address] STATES OF [facility] MCHC (RBC) [Mass/Vol] 33.9 g/dL Normal 30.5-36.0 [facility] Comment on above: Order Comment: Speci men Type: BLOOD SPECIMENOrdering Facility: [facility] Address: [address] [place] [address] Performed By: #### 5 8410-2 ####[facility] [id number] [address] [place] MCV (RBC) [Entitic vol] 93.7 fL Normal 80.0-100.0 [facility] Comment on above: Order Comment: Speci men Type: BLOOD SPECIMENOrdering Facility: [facility] Address: [address] [place] [address] Performed By: #### 5 8410-2 ####[facility] [id number] [address] [id number] [address] [place] Nucleated RBC (Bld) [#/Vol] 10*3/uL Normal <0.01 [facility] Comment on above: Order Comment: Speci men Type: BLOOD SPECIMENOrdering Facility: [facility] Address: [address] [place], [place] [address] Performed By: #### 5 8410-2 ####[facility] LABCLIA [id number] [place] [address] [place] Platelet mean volume (Bld) [Entitic vol] 11.3 fL Normal 9.0-12.7 [facility] Comment on above: Order Comment: Speci men Type: BLOOD SPECIMENOrdering Facility: [facility] Address: [address] [place], [place] [address] Performed By: #### 5 8410-2 ####[facility] LABCLIA [id number] [place] [address] [place] Platelets (Bld) [#/Vol] 179 10*3/uL Normal 150-400 [facility] Comment on above: Order Comment: Speci men Type: BLOOD SPECIMENOrdering Facility: [facility] Address: [address] [place] [address] Performed By: #### 5 8410-2 ####[facility] LABIA [id number] [place] [address] [place] RBC (Bld) [#/Vol] 3.81 10*6/uL Low 4.20-6.00 [facility] Comment on above: Order Comment: Speci men Type: BLOOD SPECIMENOrdering Facility: [facility] Address: [address] [place] [address] Performed By: #### 5 8410-2 ####[facility] LABCLIA [id number] [place] [address] [place] WBC (Bld) [#/Vol] 16.02 10*3/uL High 3.70-11.00 [facility] Comment on above: Order Comment: Speci men Type: BLOOD SPECIMENOrdering Facility: [facility] Address: [address] [address] Performed By: #### 5 8410-2 ####[facility] LABIA [id number] [address] [place] Erythrocyte distribution width (RBC) [Ratio] 12.8 % Normal 11.5-15.0 [facility] Comment on above: Order Comment: Speci men Type: BLOOD SPECIMENOrdering Facility: [facility] Address: [address] [place] [address] Performed By: #### 5 8410-2 ####[facility] LABIA [id number] [address] [place] Hematocrit (Bld) [Volume fraction] 32.6 % Low 39.0-51.0 [facility] Comment on above: Order Comment: Speci men Type: BLOOD SPECIMENOrdering Facility: [facility] Address: [address] [place] [address] Performed By: #### 5 8410-2 ####[facility] LABIA [id number] [place] [address] [place] Hemoglobin (Bld) [Mass/Vol] 11.1 g/dL Low 13.0-17.0 [facility] Comment on above: Order Comment: Speci men Type: BLOOD SPECIMENOrdering Facility: [facility] Address: [address] [place] [address] Performed By: #### 5 8410-2 ####[facility] LABIA [id number] [place] [address] [place] MCH (RBC) [Entitic mass] 31.6 pg Normal 26.0-34.0 [facility] Comment on above: Order Comment: Speci men Type: BLOOD SPECIMENOrdering Facility: [facility] Address: [address] [place] [address] Performed By: #### 5 8410-2 ####[facility] LABIA [id number] [address] STATES [facility] MCHC (RBC) [Mass/Vol] 34.0 g/dL Normal 30.5-36.0 [facility] Comment on above: Order Comment: Speci men Type: BLOOD SPECIMENOrdering Facility: [facility] Address: [address] [place] [address] Performed By: #### 5 8410-2 ####[facility] LABIA [id number] [address] [place] MCV (RBC) [Entitic vol] 92.9 fL Normal 80.0-100.0 [facility] Comment on above: Order Comment: Speci men Type: BLOOD SPECIMENOrdering Facility: [facility] Address: [address] [place] [address] Performed By: #### 5 8410-2 ####[facility] [id number] [address] STATES [facility] Nucleated RBC (Bld) [#/Vol] 10*3/uL Normal <0.01 [facility] Comment on above: Order Comment: Speci men Type: BLOOD SPECIMENOrdering Facility: [facility] Address: [address] [place] [address] Performed By: #### 5 8410-2 ####[facility] LABIA [id number] [address] STATES [facility] Platelet mean volume (Bld) [Entitic vol] 11.2 fL Normal 9.0-12.7 [facility] Comment on above: Order Comment: Speci men Type: BLOOD SPECIMENOrdering Facility: [facility] Address: [address] [place] [address] Performed By: #### 5 8410-2 ####[facility] LABIA [id number] [address] [place] Platelets (Bld) [#/Vol] 172 10*3/uL Normal 150-400 [facility] Comment on above: Order Comment: Speci men Type: BLOOD SPECIMENOrdering Facility: [facility] Address: [address] [place] [address] Performed By: #### 5 8410-2 ####[facility] LABCLIA [id number] [place] [address] [place] RBC (Bld) [#/Vol] 3.51 10*6/uL Low 4.20-6.00 [facility] Comment on above: Order Comment: Speci men Type: BLOOD SPECIMENOrdering Facility: [facility] Address: [address] [place] [address] Performed By: #### 5 8410-2 ####[facility] LABCLIA [id number] [place] [address] [place] [facility] WBC (Bld) [#/Vol] 11.53 10*3/uL High 3.70-11.00 [facility] Comment on above: Order Comment: Speci men Type: BLOOD SPECIMENOrdering Facility: [facility] Address: [address] [place] [address] Performed By: #### 5 8410-2 ####[facility] LABCLIA [id number] [address] OF [facility] CONSULT PROGon 08-28-2022 CONSULT PROG HNO ID: [id number] Author: Uzma Bates MD Service: Cardiovascular Medicine [...] 08/28/2022 1045 Gross per 24 hour Intake 38749.5 ml Output 17269 ml Net -78614.5 ml TELEMETRY: DATA: Laboratory: Recent Labs 08/28/22 [...] (2000) and TURP (2006) who presented to [facility] ED 08/26/22 for development of gross hematuria with lower pelvic pain x2 days. He was found to have elevated WBC with + UA, and started on IV atbx. He was transferred to [facility] 08/27 for further management. 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 This equates to a 6.0% 30-day risk of , NM, or cardiac arrest. Pt denies any cardiac complaints. Per Dr. Bates, no absolute contraindication to proceeding with urologic p (more content not included)... Normal [facility] Comprehensive metabolic 2000 panelon 08-28-2022 Albumin [Mass/Vol] 4.1 g/dL Normal 3.9-4.9 [facility] Comment on above: Order Comment: Speci men Type: BLOOD SPECIMENOrdering Facility: [facility] Address: [address] [id number] Performed By: #### 1 9123-9, 83491-7, 27708-18 ####[facility] LABIA [id number] [place] [address] [place] ALP [Catalytic activity/Vol] 119 U/L High 38-113 [facility] Comment on above: Order Comment: Speci men Type: BLOOD SPECIMENOrdering Facility: [facility] Address: [address] [phone] Performed By: #### 1 9123-9, 40262-2, 2777 ####[facility] LABCLIA [id number] [place] [address] [place] ALT [Catalytic activity/Vol] 23 U/L Normal 10-54 [facility] Comment on above: Order Comment: Speci men Type: BLOOD SPECIMENOrdering Facility: [facility] Address: [address] [place] [address] Performed By: #### 1 9123-9, 79421-0, 277- ####[facility] LABCLIA [id number] [place] [address] [place] Anion gap [Moles/Vol] 10 mmol/L Normal 9-18 [facility] Comment on above: Order Comment: Speci men Type: BLOOD SPECIMENOrdering Facility: [facility] Address: [address] [place] [address] Performed By: #### 1 9123-9, 79243-6, 27708-18 ####[facility] LABCLIA [id number] [place] [address] [place] AST [Catalytic activity/Vol] 21 U/L Normal 14-40 [facility] Comment on above: Order Comment: Speci men Type: BLOOD SPECIMENOrdering Facility: [facility] Address: [address] [place] [address] Performed By: #### 1 9123-9, 90986-2, 27708-18 ####[facility] LABCLIA [id number] [place] [address] [place] Bilirubin [Mass/Vol] 1.1 mg/dL Normal 0.2-1.3 [facility] Comment on above: Order Comment: Speci men Type: BLOOD SPECIMENOrdering Facility: [facility] Address: [address] [place] [address] Performed By: #### 1 9123-9, 40076-0, 277- ####[facility] LABCLIA [id number] [place] [address] [place] Calcium [Mass/Vol] 9.1 mg/dL Normal 8.5-10.2 [facility] Comment on above: Order Comment: Speci men Type: BLOOD SPECIMENOrdering Facility: [facility] Address: [address] [address] Performed By: #### 1 9123-9, 63464-6, 2777- ####[facility] LABCLIA [id number] [place] [address] [place] Chloride [Moles/Vol] 105 mmol/L Normal 97-105 [facility] Comment on above: Order Comment: Speci men Type: BLOOD SPECIMENOrdering Facility: [facility] Address: [address] [address] Performed By: #### 1 9123-9, 02815-7, 2777- ####[facility] LABCLIA [id number] [place] [address] [place] CO2 [Moles/Vol] 24 mmol/L Normal 22-30 [facility] Comment on above: Order Comment: Speci men Type: BLOOD SPECIMENOrdering Facility: [facility] Address: [address] [place] [address] Performed By: #### 1 9123-9, 95408-4, 2777- ####[facility] LABCLIA [id number] [place] [address] [place] Creatinine [Mass/Vol] 0.76 mg/dL Normal 0.73-1.22 [facility] Comment on above: Order Comment: Speci men Type: BLOOD SPECIMENOrdering Facility: [facility] Address: [address] [place] [address] Performed By: #### 1 9123-9, 53554-6, 2777- ####[facility] LABIA [id number] [place] [address] [place] ESTIMATED GLOMERULAR FILTRATION RATE 93 mL/min/1.73m??? Normal >=60 [facility] Comment on above: Order Comment: Speci men Type: BLOOD SPECIMENOrdering Facility: [facility] Address: [address] [place] [address] Result Comment: Mariaelena mated Glomerular Filtration Rate [...] actual GFR. Performed By: #### 1 9123-9, 96096-5, 277- ####[facility] LABCLIA [id number] [address] [address] [place] Glucose [Mass/Vol] 147 mg/dL High 74-99 [facility] Comment on above: Order Comment: Portia tay Type: BLOOD SPECIMENOrdering Facility: [facility] Address: [address] [phone] Result Comment: The [place] Diabetes Association (ADA) provides guidance for cutoff [...] Standards of Medical Care in Diabetes 2016, [place] [employer]. Diabetes Care. 2016.39(Suppl 1). Performed By: #### 1 9123-9, 69805-8, 2776-02 ####[facility] LABIA [id number] [address] [address] [place] Potassium [Moles/Vol] 4.2 mmol/L Normal 3.7-5.1 [facility] Comment on above: Order Comment: Portia tay Type: BLOOD SPECIMENOrdering Facility: [facility] Address: [address] [place] [address] Performed By: #### 1 9123-9, 11080-6, 1 ####[facility] LABCLIA [id number] [place] [address] [place] Protein [Mass/Vol] 6.6 g/dL Normal 6.3-8.0 [facility] Comment on above: Order Comment: Speci men Type: BLOOD SPECIMENOrdering Facility: [facility] Address: [address] [place] [address] Performed By: #### 1 9123-9, 40304-7, 2777 ####[facility] LABIA [id number] [place] [address] [place] Sodium [Moles/Vol] 139 mmol/L Normal 136-144 [facility] Comment on above: Order Comment: Speci men Type: BLOOD SPECIMENOrdering Facility: [facility] Address: [address] [place] [address] Performed By: #### 1 9123-9, 34576-3, 2777 ####[facility] LABIA [id number] [place] [address] [place] Urea nitrogen [Mass/Vol] 14 mg/dL Normal 9-24 [facility] Comment on above: Order Comment: Speci men Type: BLOOD SPECIMENOrdering Facility: [facility] Address: [address] [place] [address] Performed By: #### 1 9123-9, 11162-0, 2777 ####[facility] LABIA [id number] [address] [place] [id number] [place] ECHOon 08-28-2022 Echocardiography Echocardiography Rep ort: Transthoracic Echo [facility] Bedside Date of service: 08/28/2022 9:45:03 AM ASSISTANT Ordering physician: DAVID ANDREWS Indication: Evaluation of [...] * * Final * * * [facility] Medical Image : [id number] Normal [facility] HISTORY PHYSICALon HISTORY PHYSICAL HNO ID: [id number] Author: Earnest Portillo MD Service: Critical Care Author Type: Physician Type: HANDP Filed: 08/28/2022 10:48 PM Note Text: SERVICE DATE: 08/28/2022 SERVICE TIME: 9:49 PM SICU HANDP NOTE HPI: Olaf Briones is a 77 year old male with PMHx of recent STEMI on 08/20/22 (s/p JUHI),HTN, HLD, DM, nephrolithiasis, transferred from [facility] for gross hematuria. He is now [...] Is Patient Clinically Ready to Transfer to [facility] or SDU?: No Discharge Planning: To [...] ASA and ticagrelor Coronary artery disease involving ute coronary artery of ute heart without angina pectoris recent STEMI on 08/20/22 s/p JUHI Plan -Continue DAPT with ASA and ticagrelor Endocrinology Type 2 diabetes mellitus without complication, without long-term current use of insulin (HCC) No (more content not included)... Normal [facility] Magnesium SerPl-mCncon 08-28 Magnesium [Mass/Vol] 2.1 mg/dL Normal 1.7-2.3 [facility] Comment on above: Order Comment: Speci men Type: BLOOD SPECIMENOrdering Facility: [facility] Address: [address] [place] [address] Performed By: #### 1 9123-9, 15957-0, 2777-1 ####[facility] LABCLIA [id number] [facility] [address] OPERATIVE NOon 08-28-2022 OPERATIVE NO HNO ID: [id number] Author: David Andrews MD Service: Urology Author Type: Physician Type: Operative Report Filed: 08/28/2022 8:20 PM Note Text: OPERATIVE/PROCEDURE REPORT LOG ID: [id number] Surgery/Procedure Date: 08/28/2022 Incision/Procedure Start Time: 6:17 PM Incision Close/Procedure End Time: 7:50 PM Surgeon(s)/Proceduralist(s ) and Graduate Assistant(s): Surgeon(s) and Role: * David Andrews MD [...] 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 Normal [facility] Phosphate SerPl-ncon 08-28 Phosphate [Mass/Vol] 2.9 mg/dL Normal 2.7-4.8 [facility] Comment on above: Order Comment: Speci men Type: BLOOD SPECIMENOrdering Facility: [facility] Address: [address] [phone] Performed By: #### 1 9123-9, 75254-6, 2777-1 ####[facility] LABCLIA [id number] [place] [address] [place] SURGICAL PATHOLOGYon 023 CASE REPORT Normal [facility] Comment on above: Order Comment: Speci men Type: TISSUE SPECIMENOrdering Facility: [facility] Address: [address] [place] [address] Result Comment: Surg [facility] Pathology Report Case: [id number] Authorizing Provider: David Andrews MD Collected: 08/28/2022 06:54 PM Ordering Location: Admitting Received: 08/29/2022 07:58 AM Pathologist: Gal Poon MD Specimens: A) - PROSTATE TISSUE (CHIPS) B) - PROSTATE TISSUE (CHIPS), #2 Performed By: #### S ####[facility] LABCLIA [id number] [address] OF [facility] CLINICAL HISTORY Normal [facility] Comment on above: Order Comment: Speci men Type: TISSUE SPECIMENOrdering Facility: [facility] Address: [address] [place] [address] Result Comment: Pre- op diagnosis: Hematuria [R31.9] Performed By: #### S ####[facility] LABCLIA [id number] [address] FINAL DIAGNOSIS Normal [facility] Comment on above: Order Comment: Speci men Type: TISSUE SPECIMENOrdering Facility: [facility] Address: [address] [place] [address] Result Comment: AAltagracia Teixeira rostate, transurethral resection: - Benign prostatic hyperplasia. A. 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 Performed By: #### S ####[facility] LABCLIA [id number] [address] FINAL PERFORMING LAB Normal [facility] Comment on above: Order Comment: Speci men Type: TISSUE SPECIMENOrdering Facility: [facility] Address: [address] [place] [address] Result Comment: Diag nostic interpretation performed at [facility], [address] [address] CLIA# [id number] Print Support Specialist: Jacob Urias M.D. Performed By: #### S ####[facility] [id number] [place] [address] [place] GROSS DESCRIPTION Normal [facility] Comment on above: Order Comment: Speci men Type: TISSUE SPECIMENOrdering Facility: [facility] Address: [address] [address] Result Comment: A. P ROSTATE TISSUE (CHIPS) [...] in cassette B1. Gross examination performed at [facility], [address] 08/29/2022 2:10 PM Performed By: #### S ####[facility] [id number] [place] [address] [place] VENOUS BLOOD GASES WITH IONI ZED MAGNESIUMon 08-28-2022 BASE DEFICIT, VENOUS -1 mmol/L Normal -2-0 [facility] Comment on above: Order Comment: Speci men Type: VENOUS BLOOD SPECIMENOrdering Facility: [facility] Address: [address] [address] Performed By: #### V ALLMG ####[facility] [id number] [place] [address] [place] Calcium.ionized (Bld) [Mass/Vol] 1.19 mmol/L Normal 1.08-1.30 [facility] Comment on above: Order Comment: Speci men Type: VENOUS BLOOD SPECIMENOrdering Facility: [facility] Address: [address] Performed By: #### V ALLMG ####[facility] [id number] [place] [address] [place] Calcium.ionized adjusted to pH 7.4 (BldA) [Moles/Vol] 1.18 mmol/L Normal 1.08-1.30 [facility] Comment on above: Order Comment: Speci men Type: VENOUS BLOOD SPECIMENOrdering Facility: [facility] Address: [address] [address] Performed By: #### V ALLMG ####[facility] [id number] [place] [address] [place] Carboxyhemoglobin (BldV) [Mass fraction] 1.9 % Normal 0.0-2.0 [facility] Comment on above: Order Comment: Speci men Type: VENOUS BLOOD SPECIMENOrdering Facility: [facility] Address: [address] [address] Result Comment: Carb oxyhemoglobin Reference Range for Smokers: 2.0-8.0% Performed By: #### V ALLMG ####[facility] [id number] [place] [address] [place] CO2 (BldV) [Partial pressure] 40 mm[Hg] Low 42-55 [facility] Comment on above: Order Comment: Speci men Type: VENOUS BLOOD SPECIMENOrdering Facility: [facility] Address: [address] Performed By: #### V ALLMG ####[facility] [id number] [place] [address] [place] CO2 [Moles/Vol] 25 mmol/L Normal 25-29 [facility] Comment on above: Order Comment: Speci men Type: VENOUS BLOOD SPECIMENOrdering Facility: [facility] Address: [address] Performed By: #### V ALLMG ####[facility] LABCLIA [id number] [place] [address] [place] CO2 adjusted to patient's actual temperature (BldV) [Partial pressure] 40 mmHg Low 42-55 [facility] Comment on above: Order Comment: Speci men Type: VENOUS BLOOD SPECIMENOrdering Facility: [facility] Address: [address] [place] [address] Performed By: #### V ALLMG ####[facility] LABCLIA [id number] [place] [address] [place] Glucose [Mass/Vol] 120 mg/dL High 60-105 [facility] Comment on above: Order Comment: Speci men Type: VENOUS BLOOD SPECIMENOrdering Facility: [facility] Address: [address] [place] [address] Performed By: #### V ALLMG ####[facility] LABCLIA [id number] [place] [address] [place] HCO3 (Bld) [Moles/Vol] 24 mmol/L Normal 24-28 [facility] Comment on above: Order Comment: Speci men Type: VENOUS BLOOD SPECIMENOrdering Facility: [facility] Address: [address] [place], [place] [address] Performed By: #### V ALLMG ####[facility] LABCLIA [id number] [place] [address] [place] Hematocrit (Bld) [Volume fraction] 37.2 % Low 39.0-51.0 [facility] Comment on above: Order Comment: Speci men Type: VENOUS BLOOD SPECIMENOrdering Facility: [facility] Address: [address] [place], [place] [address] Performed By: #### V ALLMG ####[facility] LABCLIA [id number] [place] [address] [place] Hemoglobin (Bld) [Mass/Vol] 12.1 g/dL Low 13.0-17.0 [facility] Comment on above: Order Comment: Speci men Type: VENOUS BLOOD SPECIMENOrdering Facility: [facility] Address: [address] Performed By: #### V ALLMG ####[facility] LABIA [id number] [place] [address] [place] Lactate [Moles/Vol] 1.4 mmol/L Normal 0.5-2.2 [facility] Comment on above: Order Comment: Speci men Type: VENOUS BLOOD SPECIMENOrdering Facility: [facility] Address: [address] Performed By: #### V ALLMG ####[facility] LABIA [id number] [place] [address] [place] Magnesium [Moles/Vol] 0.58 mmol/L Normal 0.45-0.60 [facility] Comment on above: Order Comment: Speci men Type: VENOUS BLOOD SPECIMENOrdering Facility: [facility] Address: [address] Performed By: #### V ALLMG ####[facility] LABIA [id number] [place] [address] [place] Methemoglobin (Bld) [Mass fraction] 1.7 % High 0.0-1.5 [facility] Comment on above: Order Comment: Speci men Type: VENOUS BLOOD SPECIMENOrdering Facility: [facility] Address: [address] Performed By: #### V ALLMG ####[facility] LABIA [id number] [place] [address] [place] Oxygen (BldV) [Partial pressure] 96 mm[Hg] High 35-45 [facility] Comment on above: Order Comment: Speci men Type: VENOUS BLOOD SPECIMENOrdering Facility: [facility] Address: [address] Performed By: #### V ALLMG ####[facility] LABCLIA [id number] [place] [address] [place] Oxygen adjusted to patient's actual temperature (BldV) [Partial pressure] 96 mmHg High 35-45 [facility] Comment on above: Order Comment: Speci men Type: VENOUS BLOOD SPECIMENOrdering Facility: [facility] Address: [address] [place] [address] Performed By: #### V ALLMG ####[facility] LABCLIA [id number] [place] [address] [place] Oxygen saturation in Venous blood 97 % High 60-85 [facility] Comment on above: Order Comment: Speci men Type: VENOUS BLOOD SPECIMENOrdering Facility: [facility] Address: [address] [place] [address] Performed By: #### V ALLMG ####[facility] LABCLIA [id number] [place] [address] [place] Oxyhemoglobin (BldV) [Mass fraction] 94 % High 60-85 [facility] Comment on above: Order Comment: Speci men Type: VENOUS BLOOD SPECIMENOrdering Facility: [facility] Address: [address] [place] [address] Performed By: #### V ALLMG ####[facility] LABCLIA [id number] [place] [address] [place] pH (BldV) 7.39 [pH] Normal 7.32-7.42 [facility] Comment on above: Order Comment: Speci men Type: VENOUS BLOOD SPECIMENOrdering Facility: [facility] Address: [address] [place], [place] [address] Performed By: #### V ALLMG ####[facility] LABCLIA [id number] [place] [address] [place] pH adjusted to patient's actual temperature (BldV) 7.39 Normal 7.32-7.42 [facility] Comment on above: Order Comment: Speci men Type: VENOUS BLOOD SPECIMENOrdering Facility: [facility] Address: [address] [place] [address] Performed By: #### V ALLMG ####[facility] LABCLIA [id number] [place] [address] [place] Potassium [Moles/Vol] 3.8 mmol/L Normal 3.5-5.0 [facility] Comment on above: Order Comment: Speci men Type: VENOUS BLOOD SPECIMENOrdering Facility: [facility] Address: [address] [place] [address] Performed By: #### V ALLMG ####[facility] LABCLIA [id number] [place] [address] [place] Sodium [Moles/Vol] 139 mmol/L Normal 136-144 [facility] Comment on above: Order Comment: Speci men Type: VENOUS BLOOD SPECIMENOrdering Facility: [facility] Address: [address] [place] [address] Performed By: #### V ALLMG ####[facility] LABCLIA [id number] [place] [address] [place] XR CHEST 1V [...] tortuous. Other: Generalized osteopenia. IMPRESSION: See result. 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 Transcribe Date/Time: Aug 28 2022 10:04P Dictated by : AMERICO ADHIKARI MD This examination was interpreted and the report reviewed and electronically signed by: AMERICO ADHIKARI MD on Aug 28 2022 10:06PM EST [id number] Normal [facility] Bacteria Bld Culton 08-28-19 23 Bacteria identified Cx Nom (Bld) CULTURE, BLOOD: No growth 5 days Normal [facility] Comment on above: Performed By: #### 6 00-7 ####[facility] LABCLIA [id number] [place] [address] [place] Bacteria identified Cx Nom (Bld) CULTURE, BLOOD: No growth 5 days Normal [facility] Comment on above: Performed By: #### 6 00-7 ####[facility] LABCLIA [id number] [place] [address] [place] Bacteria Ur Culton 3 Bacteria identified Cx Nom (U) CULTURE, URINE: No growth (<1,000 CFU/ml) Normal [facility] Comment on above: Performed By: #### 6 30-4 ####[facility] LABCLIA [id number] [place] [address] [place] Basic metabolic 2000 panelon 08-27-2022 Anion gap [Moles/Vol] 13 mmol/L Normal 9-18 [facility] Comment on above: Order Comment: Speci men Type: BLOOD SPECIMENOrdering Facility: [facility] Address: [address] [place], [place] [address] Performed By: #### 2 4321-2, 85214-1, 2777-1 ####[facility] LABCLIA [id number] [place] [address] [place] Calcium [Mass/Vol] 9.3 mg/dL Normal 8.5-10.2 [facility] Comment on above: Order Comment: Speci men Type: BLOOD SPECIMENOrdering Facility: [facility] Address: [address] Performed By: #### 2 4321-2, , 2776-02 ####[facility] LABCLIA [id number] [facility] [place] [address] [place] Chloride [Moles/Vol] 105 mmol/L Normal 97-105 [facility] Comment on above: Order Comment: Speci men Type: BLOOD SPECIMENOrdering Facility: [facility] Address: [address] [place] [address] Performed By: #### 2 4321-2, , 2776-02 ####[facility] LABCLIA [id number] [place] [address] [place] CO2 [Moles/Vol] 22 mmol/L Normal 22-30 [facility] Comment on above: Order Comment: Speci men Type: BLOOD SPECIMENOrdering Facility: [facility] Address: [address] [place], [place] [address] Performed By: #### 2 4321-2, , 2776-02 ####[facility] LABCLIA [id number] [place] [address] [place] Creatinine [Mass/Vol] 0.79 mg/dL Normal 0.73-1.22 [facility] Comment on above: Order Comment: Speci men Type: BLOOD SPECIMENOrdering Facility: [facility] Address: [address] [place] [address] Performed By: #### 2 4321-2, , 2776-02 ####[facility] LABCLIA [id number] [place] [address] [place] ESTIMATED GLOMERULAR FILTRATION RATE 91 mL/min/1.73m??? Normal >=60 [facility] Comment on above: Order Comment: Speci men Type: BLOOD SPECIMENOrdering Facility: [facility] Address: [address] [place] [address] Result Comment: Mariaelena mated Glomerular Filtration Rate [...] Performed By: #### 2 4321-2, , 2776-02 ####[facility] LABCLIA [id number] [place] [address] [place] Glucose [Mass/Vol] 197 mg/dL High 74-99 [facility] Comment on above: Order Comment: Portia tay Type: BLOOD SPECIMENOrdering Facility: [facility] Address: [address] [place] [address] Result Comment: The [place] [employer] (ADA) provides guidance for cutoff [...] Standards of Medical Care in Diabetes 2016, [place] [employer]. Diabetes Care. 2016.39(Suppl 1). Performed By: #### 2 4321-2, , 2776-02 ####[facility] LABCLIA [id number] [place] [address] [place] Potassium [Moles/Vol] 4.3 mmol/L Normal 3.7-5.1 [facility] Comment on above: Order Comment: Portia tay Type: BLOOD SPECIMENOrdering Facility: [facility] Address: [address] [place], [place] [address] Performed By: #### 2 4321-2, 01819-4, 2777 ####[facility] LABCLIA [id number] [place] [id number] [place] Sodium [Moles/Vol] 140 mmol/L Normal 136-144 [facility] Comment on above: Order Comment: Speci men Type: BLOOD SPECIMENOrdering Facility: [facility] Address: [address] [place], [place] [address] Performed By: #### 2 4321-2, 67562-6, 27708-18 ####[facility] LABCLIA [id number] [place] [address] [place] Urea nitrogen [Mass/Vol] 17 mg/dL Normal 9-24 [facility] Comment on above: Order Comment: Speci men Type: BLOOD SPECIMENOrdering Facility: [facility] Address: [address] [place] [address] Performed By: #### 2 4321-2, , 27708-18 ####[facility] LABIA [id number] [place] [address] [place] CASE MGT INIT ASSESon 2022 CASE MGT INIT ASSES HNO ID: [id number] Author: Yane George RN Service: ? Author [...] Current Advance Directive: Health Care Power of Respiratory Therapy Instructor (Patient reports he has AD. request copy [...] General wellness, Be able to go home [place] Choice Explained: [place] of [place] Given: No Reason Not Given: [...] nephrolithiasis who was transferred from [facility] w/ gross hematuria CM met patient in room. Patient lives with spouse at home. Patient reports independence at home with adl's/iadl's prior to admission. No oxygen, or cpaps at home. Had recent NM in past. Cardiology on consult. No current [...] 27, 2022 TIME: 5:05 PM CONTACT #: [phone] Normal [facility] CBC W Auto Differential pane l (Bld)on 08-27-2022 Basophils (Bld) [#/Vol] 0.03 10*3/uL Normal <0.11 [facility] Comment on above: Order Comment: Speci men Type: BLOOD SPECIMENOrdering Facility: [facility] Address: [address] Performed By: #### 5 7021-8 ####[facility] LABCLIA [id number] [address] [place] Basophils/100 WBC (Bld) 0.2 % Normal [facility] Comment on above: Order Comment: Speci men Type: BLOOD SPECIMENOrdering Facility: [facility] Address: [address] Performed By: #### 5 7021-8 ####[facility] LABCLIA [id number] [place] [address] [place] Differential cell count method Nom (Bld) Auto Normal [facility] Comment on above: Order Comment: Speci men Type: BLOOD SPECIMENOrdering Facility: [facility] Address: [address] Performed By: #### 5 7021-8 ####[facility] LABCLIA [id number] [place] [address] [place] Eosinophils (Bld) [#/Vol] 10*3/uL Normal <0.46 [facility] Comment on above: Order Comment: Speci men Type: BLOOD SPECIMENOrdering Facility: [facility] Address: [address] Performed By: #### 5 7021-8 ####[facility] LABCLIA [id number] [address] STATES OF [facility] Eosinophils/100 WBC (Bld) 0.1 % Normal [facility] Comment on above: Order Comment: Speci men Type: BLOOD SPECIMENOrdering Facility: [facility] Address: [address] [place] [address] Performed By: #### 5 7021-8 ####[facility] LABCLIA [id number] [place] [address] [place] Erythrocyte distribution width (RBC) [Ratio] 12.5 % Normal 11.5-15.0 [facility] Comment on above: Order Comment: Speci men Type: BLOOD SPECIMENOrdering Facility: [facility] Address: [address] [place] [address] Performed By: #### 5 7021-8 ####[facility] LABCLIA [id number] [place] [address] [place] Hematocrit (Bld) [Volume fraction] 38.5 % Low 39.0-51.0 [facility] Comment on above: Order Comment: Speci men Type: BLOOD SPECIMENOrdering Facility: [facility] Address: [address] [place] [address] Performed By: #### 5 7021-8 ####[facility] LABCLIA [id number] [place] [address] [place] Hemoglobin (Bld) [Mass/Vol] 13.4 g/dL Normal 13.0-17.0 [facility] Comment on above: Order Comment: Speci men Type: BLOOD SPECIMENOrdering Facility: [facility] Address: [address] [place] [address] Performed By: #### 5 7021-8 ####[facility] LABIA [id number] [place] [address] [place] Immature granulocytes (Bld) [#/Vol] 0.10 10*3/uL High <0.10 [facility] Comment on above: Order Comment: Speci men Type: BLOOD SPECIMENOrdering Facility: [facility] Address: [address] [place], [place] [address] Performed By: #### 5 7021-8 ####[facility] LABCLIA [id number] [address] [place] Immature granulocytes/100 WBC (Bld) 0.6 % Normal [facility] Comment on above: Order Comment: Speci men Type: BLOOD SPECIMENOrdering Facility: [facility] Address: [address] [place] [address] Performed By: #### 5 7021-8 ####[facility] LABCLIA [id number] [place] [address] [place] Lymphocytes (Bld) [#/Vol] 1.16 10*3/uL Normal 1.00-4.00 [facility] Comment on above: Order Comment: Speci men Type: BLOOD SPECIMENOrdering Facility: [facility] Address: [address] [place] [address] Performed By: #### 5 7021-8 ####[facility] LABCLIA [id number] [place] [address] [place] Lymphocytes/100 WBC (Bld) 7.1 % Normal [facility] Comment on above: Order Comment: Speci men Type: BLOOD SPECIMENOrdering Facility: [facility] Address: [address] Performed By: #### 5 7021-8 ####[facility] LABCLIA [id number] [place] [address] [place] MCH (RBC) [Entitic mass] 31.5 pg Normal 26.0-34.0 [facility] Comment on above: Order Comment: Speci men Type: BLOOD SPECIMENOrdering Facility: [facility] Address: [address] Performed By: #### 5 7021-8 ####[facility] LABCLIA [id number] [place] [address] [place] MCHC (RBC) [Mass/Vol] 34.8 g/dL Normal 30.5-36.0 [facility] Comment on above: Order Comment: Speci men Type: BLOOD SPECIMENOrdering Facility: [facility] Address: [address] Performed By: #### 5 7021-8 ####[facility] LABCLIA [id number] [place] [address] [place] MCV (RBC) [Entitic vol] 90.6 fL Normal 80.0-100.0 [facility] Comment on above: Order Comment: Speci men Type: BLOOD SPECIMENOrdering Facility: [facility] Address: [address] [place] [address] Performed By: #### 5 7021-8 ####[facility] LABIA [id number] [place] [address] [place] Monocytes (Bld) [#/Vol] 1.00 10*3/uL High <0.87 [facility] Comment on above: Order Comment: Speci men Type: BLOOD SPECIMENOrdering Facility: [facility] Address: [address] [place] [address] Performed By: #### 5 7021-8 ####[facility] LABIA [id number] [place] [address] [place] Monocytes/100 WBC (Bld) 6.2 % Normal [facility] Comment on above: Order Comment: Speci men Type: BLOOD SPECIMENOrdering Facility: [facility] Address: [address] [place] [address] Performed By: #### 5 7021-8 ####[facility] LABIA [id number] [place] [address] [place] Neutrophils (Bld) [#/Vol] 13.93 10*3/uL High 1.45-7.50 [facility] Comment on above: Order Comment: Speci men Type: BLOOD SPECIMENOrdering Facility: [facility] Address: [address] [place] [address] Performed By: #### 5 7021-8 ####[facility] LABIA [id number] [place] [address] [place] Neutrophils/100 WBC (Bld) 85.8 % Normal [facility] Comment on above: Order Comment: Speci men Type: BLOOD SPECIMENOrdering Facility: [facility] Address: [address] [place] [address] Performed By: #### 5 7021-8 ####[facility] LABIA [id number] [place] [address] [place] Nucleated RBC (Bld) [#/Vol] 10*3/uL Normal <0.01 [facility] Comment on above: Order Comment: Speci men Type: BLOOD SPECIMENOrdering Facility: [facility] Address: [address] [place] [address] Performed By: #### 5 7021-8 ####[facility] [id number] [place] [address] [place] Nucleated RBC/100 WBC (Bld) [Ratio] 0.0 /100 WBC Normal [facility] Comment on above: Order Comment: Speci men Type: BLOOD SPECIMENOrdering Facility: [facility] Address: [address] [place] [address] Performed By: #### 5 7021-8 ####[facility] LABIA [id number] [place] [address] [place] Platelet mean volume (Bld) [Entitic vol] 11.4 fL Normal 9.0-12.7 [facility] Comment on above: Order Comment: Speci men Type: BLOOD SPECIMENOrdering Facility: [facility] Address: [address] [place] [address] Performed By: #### 5 7021-8 ####[facility] LABIA [id number] [place] [address] [place] Platelets (Bld) [#/Vol] 214 10*3/uL Normal 150-400 [facility] Comment on above: Order Comment: Speci men Type: BLOOD SPECIMENOrdering Facility: [facility] Address: [address] [place] [address] Performed By: #### 5 7021-8 ####[facility] LABCLIA [id number] [place] [address] [place] RBC (Bld) [#/Vol] 4.25 10*6/uL Normal 4.20-6.00 [facility] Comment on above: Order Comment: Speci men Type: BLOOD SPECIMENOrdering Facility: [facility] Address: [address] Performed By: #### 5 7021-8 ####[facility] LABCLIA [id number] [place] [address] [place] [facility] [place] WBC (Bld) [#/Vol] 16.24 10*3/uL High 3.70-11.00 [facility] Comment on above: Order Comment: Speci men Type: BLOOD SPECIMENOrdering Facility: [facility] Address: [address] Performed By: #### 5 7021-8 ####[facility] LABCLIA [id number] [address] [place] BLOOD TYPEon 023 ABO O Normal [facility] Comment on above: Order Comment: Speci men Type: BLOOD SPECIMENOrdering Facility: [facility] Address: [address] [place] [address] Performed By: #### C ONABO ####[facility] BLOOD BANKCLIA [id number] [address] [place] Rh Nom (Bld) Positive Normal [facility] Comment on above: Order Comment: Speci men Type: BLOOD SPECIMENOrdering Facility: [facility] Address: [address] Performed By: #### C ONABO ####[facility] BLOOD BANKCLIA [id number] [place] [address] [place] CONSULTon 08-27-2022 CONSULT HNO ID: [id number] Author: Uzma Bates MD Service: Cardiovascular Medicine Author Type: Physician Type: Consults Filed: 08/27/2022 8:39 PM Note Text: [facility] CARDIOVASCULAR MEDICINE CONSULT NOTE (Template ID [id number]) Olaf Briones [id number] PRIMARY SERVICE: Urology CONSULTING SERVICE: Cardiovascular Medicine: [...] nephrolithiasis who was transferred from [facility] w/ gross hematuria. Hematuria started on Thursday [...] passed out . 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 After stent was deployed in prox RCA,AV block resolved and HR normalized. Pt was put on ASA, Brillinta, Lisinopril (2.5), and Coreg (6.25) and was discharged two days later. PAST MEDICAL HISTORY HTN, HLD, CAD, DM FAMILY HISTORY Son- [place], Daughter- [place] HOME MEDICATIONS allopurinol (ZYLOPRIM) 300 mg tabletTake [...] rash o (more content not included)... Normal [facility] CT Urogramon 08-27-2022 CT Urogram Exam [...] 300 Contrast amount in ml's: 100 Normal [facility] Consultation Noteon 08-28-19 Consultation Note Patient: ARTHUR BRIONES Age: 77 years Sex: Male : 1945 Associated Diagnoses: None Author: Alexandre KOROMA MD Chief Complaint 08/26/2022 17:07 EDT pt to ER with c/o lower pelvic pain and blood clots in urine that started saturday. history of kidney stones. just had a stent placed last saturday at [facility]. sees dr ivory Thank for consultation on [...] BPH with urinary obstruction / SNOMED CT 3466559354 / Confirmed Kidney stone / SNOMED CT 609904140 / Confirmed Weak urinary stream / SNOMED CT 136527182 / Confirmed Microscopic hematuria / SNOMED CT 826905983 / Confirmed Diabetes / SNOMED CT 059900155 / Confirmed Hypertension / SNOMED CT 3237845986 / Confirmed Prostatitis / SNOMED CT 01283842 / Confirmed BPH without urinary obstruction / SNOMED CT 5466440989 / Confirmed Gross hematuria / SNOMED CT 712254011 / Confirmed Asymptomatic microscopic hematuria / SNOMED CT 9498723252 / Confirmed, Active Problems (10) Asymptomatic microscopic hematuria BPH with urinary obstruction BPH without urinary obstruction Diabetes Gross hematuria Hypertension Kidney stone Microscopic hematuria Prostatitis Weak urinary stream Histories Past Medical History: No active or resolved past medical history items have been selected or recorded. Family History: Hypertension Father Procedure history: Cystoscopy ([id number]) on 08/18/2013 at 68 Years. Comments: 10/02/2018 16:11 Katie Rincon MA 11/08/200904/2006 TURP - Transurethral resection of prostate ([id number]) in 2006 at 61 Years. Urodynamics ([id number]) in 2006 at 61 Years. Transrectal biopsy of prostate using ultrasound (US) guidance ([id number]) in 2005 at 60 Years. ESWL - Extracorporeal shockwave lithotripsy for renal calculus ([id number]) in 2000 at 55 Years. Comments: 10/02/2018 [...] Blood Press (more content not included)... Normal [facility] Comment on above: Result Comment: Elec tronically Signed By: Alexandre KOROMA MD.br\Date and Time Signed: 08/26/22 22:22 EDT ECG COMPLETEon 08-27-2022 ECG COMPLETE Ventricular Rate : 6 8 BPM Atrial Rate : 68 BPM P-R Interval : 186 ms QRS Duration : 102 ms Q-T Interval : 452 ms QTC Calculation(Bazett) : 480 ms Calculated P [place] : 7 degrees Calculated R [place] : -25 degrees Calculated T [place] : -33 degrees NORMAL SINUS RHYTHM MINIMAL VOLTAGE CRITERIA FOR LVH, MAY BE NORMAL VARIANT ( R in aVL ) CANNOT EXCLUDE ANTERIOR MYOCARDIAL INFARCTION , AGE UNDETERMINED ABNORMAL ECG Confirmed by CODY MANCIA MD ([id number]) on 09/01/2022 3:04:36 PM NAME : OLAF BRIONES PID : [id number] : 1945 Gender : Male Race : Unknown ORD : [id number] Procedure Date : Aug 27 2022 12:56:05 [...] : , Acquired by : CAROL MALDONADO [facility] ED Clinical Summaryon 2022 ED Clinical Summary (Inserted Image. Amara ble to display) [address] [address] ED Clinical Summary Person Information Name: OLAF BRIONES/[facility] Age: 77 Years : 1945 Sex: Male Language: Greek PCP: JAME BARRAZA MD Marital Status: Visit [...] 08/27/2022 04:32:32 08/27/2022 04:32:32 08/27/2022 04:32:32 ADDRESS: [address] [place] [address] [facility] DOC NOTES: MEDICAL INFORMATION: Prescriptions Given: [...] infection; Other obstructive and reflux uropathy Normal [facility] ED Note-Physicianon 08-28-19 ED Note-Physician Patient [...] and spoke with Dr. Johnson from the [facility] who agreed to the transfer the patient for further care. Normal [facility] Comment on above: Result Comment: Elec tronically Signed By: Tom Salas DO\.br\Date and Time Signed: 08/27/22 02:17 EDT ED Patient Education Noteon 08-27-2022 ED Patient Education Note Normal [facility] ED Patient Summaryon 023 ED Patient Summary (Inserted Image. Amara ble to display) [place] [id number] Patient Discharge Instructions Person Information Name: OLAF BRIONES Age: 77 Years Arrival Date: 08/26/2022 16:52:40 Discharge Diagnosis: 1:Urinary retention; 2:Gross hematuria; 3:Urinary tract infection; Other obstructive and reflux uropathy Primary Care Physician: CHRIS HAHN, JAME Bowers Provider Information Primary Provider: Keith Panchal M.D. Advanced Motion Picture Equipment Machinist:None The exam and treatment you received in the Emergency Department were for an urgent problem and are not intended as complete care. It is important that you follow up with a doctor, nurse practitioner, or physician?s embalmer assistant for ongoing care. If your symptoms [...] opioids can be used to help relieve edkozwba-px-pjhdrg pain and are often prescribed following a [...] be struggling with addiction, tell your health long term care social worker and ask for guidance or call [facility] [employer] Helpline at [phone]. w Source: US Department of Health and Human Services/Center for Disease Control & Prevention [place] H (more content not included)... Normal [facility] HISTORY PHYSICALon HISTORY PHYSICAL HNO ID: [id number] Author: David Andrews MD Service: Urology Author Type: Physician Type: HANDP Filed: 08/27/2022 9:26 PM Note Text: UROLOGY SERVICE HISTORY AND PHYSICAL Name: Olaf Briones Bed: H050 001/H050-01 Date: 08/27/2022 After Hours [facility] [facility] Service Pager: [phone] ASSESSMENT AND PLAN Olaf Briones is a 77 year old male with PMHx of HTN, HLD, DM, recent STEMI (s/p JUHI), nephrolithiasis, transferred from [facility] for gross hematuria. Currently with 18Fr [...] catheter stops flowing clamp CBI and page [phone] - Will continue to follow urine, if remains clear may be able to avoid OR this admission in setting of recent STEMI requiring PCI - Working to obtain cardiology records from [facility] Gt Encarnacion MD PGY-6, Urology Pager: [phone] After 1800 and on weekends please page [phone] for assistance. Active Problems Prior NM POA: Yes - placed on ASA 81, [...] recent STEMI (s/p JUHI), nephrolithiasis, transferred from [facility] for gross hematuria. He recently had primary revascularization of proximal RCA (3mm JUHI) placed at [facility] for STEMI on August 20. He [...] seen by Dr. Ivory in [facility] for nephrolithiasis. He previously had ESWL (2000), [...] as need (more content not included)... Normal [facility] Insurance Correspondence Off iceon 08-27-2022 Insurance Correspondence Office [id number]#[id number]:127 Normal [facility] MEDICAL EMERon 08-27-2022 MEDICAL VANDANA HNO ID: [id number] Author: Francis Irizarry MD Service: Urology Author Type: Resident Type: Chg in Clinical Condition Filed: 08/27/2022 9:40 AM Note Text: Olaf Briones 08/27/2022 9:33 AM AMET for orthostatic hypotension Assessment: Olaf Briones is a 77 year old male with PMHx of HTN, HLD, DM, recent STEMI (s/p JUHI), nephrolithiasis, transferred from [facility] for gross hematuria. Currently with 18Fr [...] brillinta for recent STEMI last week at [facility]. Unable to see ECHO data, EKG [...] his is coming to visit. Stated his improvement director in [employer] at [facility] is Dr. Zamora. Luis Angel on [...] at bedside to have bring records from [facility] to here. Will also request ECHO report from [facility] as well. - Continue CBI, titrate to light pink Discussed with chief, Dr. Encarnacion, and staff, Dr. 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 PATIENT NAME: Olaf Briones DATE: August 27, 2022 TIME: 9:11 AM Normal [facility] Magnesium SerPl-mCncon 08-27 Magnesium [Mass/Vol] 2.2 mg/dL Normal 1.7-2.3 [facility] Comment on above: Order Comment: Portia tay Type: BLOOD SPECIMENOrdering Facility: [facility] Address: [address] [place], [place] [address] Performed By: #### 2 4321-2, 96689-0, 2777-1 ####[facility] LABCLIA [id number] [facility] [id number] Monitor Recordon 08-27-2022 Monitor Record [id number]#1.00CD:127 Normal [facility] PT panel Coag (PPP)on 2022 INR Coag (PPP) [Relative time] 1.0 {INR} Normal 0.9-1.3 [facility] Comment on above: Order Comment: Portia tay Type: BLOOD SPECIMENOrdering Facility: [facility] Address: [address] [place], [place] [address] Result Comment: Mago min K Antagonist (VKA) Therapeutic Range: INR 2 to 3 (Target INR of 2.5) Note: For patients treated with VKA drugs, such as warfarin, the [place] [employer] 2012 Guideline recommends [...] Chest 2012, 141:7S-47S Daniel KENNEDY et al. [facility] 2017, 70: 252-289 Performed By: #### 3 4528-0, 59576-3 ####[facility] LABCLIA [id number] [address] [place] PT Coag (PPP) [Time] 10.4 s Normal 9.7-13.0 [facility] Comment on above: Order Comment: Speci men Type: BLOOD SPECIMENOrdering Facility: [facility] Address: [address] [place] [address] Performed By: #### 3 4528-0, 13574-1 ####[facility] LABCLIA [id number] [place] [address] [place] Phosphate SerPl-mCncon 08-27 Phosphate [Mass/Vol] 3.7 mg/dL Normal 2.7-4.8 [facility] Comment on above: Order Comment: Speci men Type: BLOOD SPECIMENOrdering Facility: [facility] Address: [address] [place] [address] Performed By: #### 2 4321-2, 96294-9, 2777-1 ####[facility] LABCLIA [id number] [place] [address] [place] RAD - Preliminary Cat Scan R eporton 08-27-2022 RAD - Preliminary Cat Scan Report [id number]#1.00CD:127 Normal [facility] TYPE + SCREENon 08-27-2022 ABO O Normal [facility] Comment on above: Order Comment: Speci men Type: BLOOD SPECIMENOrdering Facility: [facility] Address: [address] [place] [address] Performed By: #### T SCR ####[facility] BLOOD BANKCLIA [id number] [place] [address] [place] HISTORICAL AB SCR STATUS Negative Normal [facility] Comment on above: Order Comment: Speci men Type: BLOOD SPECIMENOrdering Facility: [facility] Address: [address] [place] [address] Performed By: #### T SCR ####[facility] BLOOD BANKCLIA [id number] [address] Rh Nom (Bld) Positive Normal [facility] Comment on above: Order Comment: Speci men Type: BLOOD SPECIMENOrdering Facility: [facility] Address: [address] [place] [address] Performed By: #### T SCR ####[facility] BLOOD BANKIA [id number] [address] TYPE AND SCREEN EXPIRATION 08/30/2022 23:59 Normal [facility] Comment on above: Order Comment: Speci men Type: BLOOD SPECIMENOrdering Facility: [facility] Address: [address] [place] [address] Performed By: #### T SCR ####[facility] BLOOD BANKIA [id number] [address] Transfer Documentson 023 Transfer Documents [id number]#[id number]:127 Normal [facility] aPTT PPPon 08-27-2022 aPTT Coag (PPP) [Time] 28.7 s Normal 23.0-32.4 [facility] Comment on above: Order Comment: Speci men Type: BLOOD SPECIMENOrdering Facility: [facility] Address: [address] [place] [address] Performed By: #### 3 4528-0, 58902-8 ####[facility] LABCLIA [id number] [address] Auto Diffon 08-26-2022 Basophils/100 WBC (Bld) 0.5 % Normal 0.0-2.0 [facility] Comment on above: Order Comment: Order Added by Discern Expert. Performed By: #### 2 191446, 66562841, 8136568, 59713762, 3236909 #### [facility] [address] [place] [address] Basophils/Leukocytes Auto (Bld) [Pure # fraction] 0.1 E9/L Normal 0.0-0.2 [facility] Comment on above: Order Comment: Order Added by Discern Expert. Performed By: #### 2 691198, 04439360, 7564630, 29091025, 0240368 #### [facility] [address] [place] [address] Eosinophils/100 WBC (Bld) 0.9 % Normal 0.0-8.0 [facility] Comment on above: Order Comment: Order Added by Discern Expert. Performed By: #### 2 612620, 89449638, 9753748, 13358689, 6640825 #### [facility] [address] [place] [address] Eosinophils/Leukocytes Auto (Bld) [Pure # fraction] 0.1 E9/L Normal 0.0-0.5 [facility] Comment on above: Order Comment: Order Added by Discern Expert. Performed By: #### 2 581400, 86001995, 7881493, 43493534, 1857378 #### [facility] [address] [place] [address] Lymphocytes/100 WBC (Bld) 6.1 % Low 14.0-50.0 [facility] Comment on above: Order Comment: Order Added by Discern Expert. Performed By: #### 2 925401, 29914301, 6876934, 33746773, 5319554 #### [facility] [address] [place] [address] Lymphocytes/Leukocytes Auto (Bld) [Pure # fraction] 0.9 E9/L Low 1.0-4.0 [facility] Comment on above: Order Comment: Order Added by Discern Expert. Performed By: #### 2 503554, 27046380, 0440034, 96253560, 9748396 #### [facility] [address] [place] [address] Monocytes/100 WBC (Bld) 4.9 % Normal 4.0-14.0 [facility] Comment on above: Order Comment: Order Added by Discern Expert. Performed By: #### 2 306247, 10941691, 2979711, 36199291, 6540060 #### [facility] [address] [place] [address] Monocytes/Leukocytes Auto (Bld) [Pure # fraction] 0.8 E9/L Normal 0.2-1.0 [facility] Comment on above: Order Comment: Order Added by Discern Expert. Performed By: #### 2 204726, 94366890, 1406750, 40855415, 9222603 #### [facility] [address] [place] [address] Neutrophils/100 WBC (Bld) 87.6 % High 36.0-75.0 [facility] Comment on above: Order Comment: Order Added by Discern Expert. Performed By: #### 2 593385, 60383237, 7181232, 80987676, 1538535 #### [facility] [address] [place] [address] Neutrophils/Leukocytes Auto (Bld) [Pure # fraction] 13.5 E9/L High 2.0-7.5 [facility] Comment on above: Order Comment: Order Added by Discern Expert. Performed By: #### 2 957233, 65065065, 2598878, 03803197, 8887520 #### [facility] [address] [place] [address] BMPon 08-26-2022 Creatinine [Mass/Vol] 0.9 mg/dL Normal 0.5-1.3 [facility] Comment on above: Performed By: #### 2 883636, 43740134, 3720521, 55229524, 1787776 #### [facility] [address] [place] [address] Urea nitrogen [Mass/Vol] 18 mg/dL Normal 5-21 [facility] Comment on above: Performed By: #### 2 336118, 51062246, 3342424, 78588728, 3815453 #### [facility] [address] [place] [address] Urea nitrogen/Creatinine [Mass ratio] 20 No Units Normal 10-20 [facility] Comment on above: Performed By: #### 2 661744, 59529080, 8379552, 84065814, 9696477 #### [facility] [address] [place] [address] Anion gap [Moles/Vol] 13 mmol/L Normal 6-16 [facility] Comment on above: Performed By: #### 2 980945, 70965460, 9963197, 26607074, 7728550 #### [facility] [address] [place] [address] Calcium [Mass/Vol] 8.9 mg/dL Normal 8.9-11.1 [facility] Comment on above: Performed By: #### 2 551641, 08483593, 5252189, 37958929, 9619087 #### [facility] [address] [place] [address] Chloride [Moles/Vol] 105 mmol/L Normal 101-111 [facility] Comment on above: Performed By: #### 2 027770, 72634772, 1350413, 70669776, 5824662 #### [facility] [address] [place] [address] CO2 [Moles/Vol] 24 mmol/L Normal 21-31 [facility] Comment on above: Performed By: #### 2 305717, 66851772, 4850443, 75490617, 2230484 #### [facility] [address] [place] [address] Glucose [Mass/Vol] 154 mg/dL Normal 55-199 [facility] Comment on above: Result Comment: If t his glucose result represents a fasting glucose, interpretation should refer to the following reference range: 55-99 mg/dL Performed By: #### 2 710856, 06213556, 9398428, 51130332, 4662268 #### [facility] [address] [place] [address] Potassium [Moles/Vol] 4.0 mmol/L Normal 3.5-5.3 [facility] Comment on above: Performed By: #### 2 208329, 50006497, 5658415, 22185673, 6890247 #### [facility] [address] [place] [address] Sodium [Moles/Vol] 138 mmol/L Normal 135-145 [facility] Comment on above: Performed By: #### 2 948327, 76017827, 2135726, 70963057, 5993829 #### [facility] [address] [place] [address] CBC w/ Auto Diffon 3 Erythrocyte distribution width (RBC) [Ratio] 13.4 % Normal 10.9-14.2 [facility] Comment on above: Performed By: #### 2 184927, 56922783, 2240268, 18487589, 4977134 #### [facility] [address] [place] [address] Hematocrit (Bld) [Volume fraction] 40.9 % Normal 37.7-49.0 [facility] Comment on above: Performed By: #### 2 618201, 64880900, 4598987, 41451445, 4072486 #### [facility] [address] [place] [address] Hemoglobin (Bld) [Mass/Vol] 14.0 g/dL Normal 13.5-17.5 [facility] Comment on above: Performed By: #### 2 679177, 88716708, 8885522, 84531509, 9862922 #### [facility] [address] [place] [address] MCH (RBC) [Entitic mass] 31.3 pg Normal 27.0-34.0 [facility] Comment on above: Performed By: #### 2 635742, 99708718, 6817355, 30989892, 6757517 #### [facility] [address] [place] [address] MCHC (RBC) [Mass/Vol] 34.1 g/dL Normal 31.4-36.0 [facility] Comment on above: Performed By: #### 2 554463, 06918139, 4808491, 49055006, 4904379 #### [facility] [address] [place] [address] MCV (RBC) [Entitic vol] 91.9 fL Normal 80.0-100.0 [facility] Comment on above: Performed By: #### 2 773283, 79342269, 5279538, 88785199, 6607229 #### [facility] [address] [place] [address] Platelet mean volume (Bld) [Entitic vol] 9.6 fL Normal 6.4-10.8 [facility] Comment on above: Performed By: #### 2 388547, 83230603, 3525266, 43534158, 6325440 #### [facility] [address] [place], [place] [address] Platelets (Bld) [#/Vol] 194.0 E9/L Normal 150. 0-500. 0 [facility] Comment on above: Performed By: #### 2 949681, 48974924, 2120040, 63254779, 5682411 #### [facility] [address] [place], [place] [address] RBC (Bld) [#/Vol] 4.4 E12/L Normal 4.3-5.9 [facility] Comment on above: Performed By: #### 2 146635, 62669258, 8796954, 97031425, 2912091 #### [facility] [address] [place] [address] WBC corrected for nucl RBC Auto (Bld) [#/Vol] 15.5 E9/L High 4.0-11.0 [facility] Comment on above: Performed By: #### 2 441516, 69450469, 9002397, 62833048, 8969105 #### [facility] [address] [place] [address] CHEMISTRYOrdered By: SYSTEM SYSTEM on 08-26-2022 Anion [...] 88 mL/min/1.73 m2 Normal >=59mL/min /1.73 m2 [facility] Chem S Glucose [Mass/Vol] 154 mg/dL Normal [...] 31.1 s Normal 25.1 - 36.5 second(s) [facility] Auto Coag INR Coag (PPP) [Relative time] 1.2 {INR} Invalid Interpretation Code [facility] Auto Coag PT Coag (PPP) [Time] 12.8 s High 9.4 - 1 2.5 second(s) [facility] Auto Coag Consent for Treatmenton Consent for Treatment [id number]#[id number]:127 Normal [facility] ED Note-Physicianon 08-27-19 ED Note-Physician Basic Information Time Seen: Abdulkadir Villatoro, Keith Arnold 08/26/2022 17:07 Chief Complaint pt to ER with c/o lower pelvic pain and blood clots in urine that started saturday. history of kidney stones. just had a stent placed last saturday at [facility]. sees dr ivory History of Present Illness [...] and Complexity of Problems Differential Diagnosis: [] [facility] Data External documents reviewed: [] My [...] Alcohol Use, (more content not included)... Normal [facility] Comment on above: Result Comment: Elec [...] 87.6 % High 36.0 - 75.0 % [facility] HemeAutoSS Neutrophils/Leukocytes Auto (Bld) [Pure # fraction] 13.5 E9/L High 2.0 - 7.5 E9/L [facility] HemeAutoSS HEMATOLOGYOrdered By: Jani Hardy on 08-26-2022 Erythrocyte distribution width (RBC) [Ratio] 13.4 % Normal 10.9 - 14.2 % [facility] HemeAutoSS Hematocrit (Bld) [Volume fraction] 40.9 % Normal 37.7 - 49.0 % [facility] HemeAutoSS Hemoglobin (Bld) [Mass/Vol] 14.0 g/dL Normal 13.5 - 17.5 gm/dL [facility] HemeAutoSS MCH (RBC) [Entitic mass] 31.3 pg Normal 27.0 - 34.0 pg [facility] HemeAutoSS MCHC (RBC) [Mass/Vol] 34.1 g/dL Normal 31.4 - 36.0 gm/dL [facility] HemeAutoSS MCV (RBC) [Entitic vol] 91.9 fL Normal 80.0 - 100.0 fL [facility] HemeAutoSS Platelet mean volume (Bld) [Entitic vol] 9.6 fL Normal 6.4 - 10.8 fL [facility] HemeAutoSS Platelets (Bld) [#/Vol] 194.0 E9/L Normal 150. 0 - 500.0 E9/L [facility] HemeAutoSS RBC (Bld) [#/Vol] 4.4 E12/L Normal 4.3 - 5.9 E12/L [facility] HemeAutoSS WBC corrected for nucl RBC Auto (Bld) [#/Vol] 15.5 E9/L High 4.0 - 11.0 E9/L [facility] HemeAutoSS Laboratory - Microbiology an d Antimicrobial susceptibilityOrdered By: Jaye Bishop on 08-26-2022 Bacteria identified Cx Nom (U) No growth to date [facility] Monitor Recordon 08-26-2022 Monitor Record [id number]#[id number]:127 Normal [facility] Monitor Record [id number]#[id number]:127 Normal [facility] PT & PTTon 08-26-2022 aPTT Coag (PPP) [Time] 31.1 second(s) Normal 25.1-36.5 [facility] Comment on above: Result Comment: Para [...] the same coagulation reagent and instrumentation as [facility]. Currently there are no coagulation studies available worldwide for children to 14 days, and no normal ranges. Heparin therapeutic range (represented by Anti-Factor Xa activity of 0.2 - 0.4 U/mL) corresponds to PTT of 56.6 - 109.0 sec. Performed By: #### 2 853936, 96854125, 3724706, 24229832, 7789666 #### [facility] [address] [place] [address] INR Coag (PPP) [Relative time] 1.2 {INR} Invalid Interpretation Code [facility] Comment on above: Result Comment: INR results are specifically intended to assess patients stabilized on long-term Anticoagulation therapy suggested INR?s ?Less Intensive Anticoagulation? 2.0 ? 3.0 Conventional Range 3.0 ? 4.5 Performed By: #### 2 449972, 62905769, 7218153, 61402625, 6395709 #### [facility] [address] [place] [address] PT Coag (PPP) [Time] 12.8 second(s) High 9.4-12.5 [facility] Comment on above: Result Comment: 15 [...] the same coagulation reagent and instrumentation as [facility]. Currently there are no coagulation studies available worldwide for children to 14 days, and no normal ranges. Performed By: #### 2 517802, 59974635, 6937610, 48763503, 9589941 #### [facility] [address] [place] [address] UA With Cult Reflexon 2022 Bacteria LM Ql (Urine sed) 1+ /HPF Abnormal Trace [facility] Comment on above: Order Comment: Urina ry Catheter Insertion triggered Urinalysis With Culture Reflex order by discern. Performed By: #### 2 975138, 69673792, 0460779, 66999328, 7922094 #### [facility] [address] [place] [address] Bilirubin Ql (U) Negative Normal Negative [facility] Comment on above: Order Comment: Urina ry Catheter Insertion triggered Urinalysis With Culture Reflex order by discern. Performed By: #### 2 178057, 97041762, 3902262, 11132175, 6243067 #### [facility] [address] [place] [address] Clarity (U) CLOUDY Abnormal Clear [facility] Comment on above: Order Comment: Urina ry Catheter Insertion triggered Urinalysis With Culture Reflex order by discern. Performed By: #### 2 258279, 88839413, 1693153, 98675325, 0532461 #### [facility] [address] [place] [address] Color (U) RED Abnormal Yellow [facility] Comment on above: Order Comment: Urina ry Catheter Insertion triggered Urinalysis With Culture Reflex order by discern. Performed By: #### 2 454506, 16690222, 1462390, 83905249, 3305689 #### [facility] [address] [place] [address] Epithelial cells.squamous LM.HPF (Urine sed) [#/Area] 0-2 Normal 0-2 [facility] Comment on above: Order Comment: Urina ry Catheter Insertion triggered Urinalysis With Culture Reflex order by discern. Performed By: #### 2 241879, 99195834, 6021975, 34484001, 0811008 #### [facility] [address] [place] [address] Glucose Test strip (U) [Mass/Vol] TRACE Abnormal Negative [facility] Comment on above: Order Comment: Urina ry Catheter Insertion triggered Urinalysis With Culture Reflex order by discern. Performed By: #### 2 907531, 49403055, 3008962, 55387425, 3750308 #### [facility] [address] [place] [address] Hemoglobin Ql (U) 3+ Abnormal Negative [facility] Comment on above: Order Comment: Urina ry Catheter Insertion triggered Urinalysis With Culture Reflex order by discern. Performed By: #### 2 [id number], [id number], [id number], [id number], [id number] #### [facility] [address] [place] [address] Ketones (U) [Mass/Vol] 1+ Abnormal Negative [facility] Comment on above: Order Comment: Urina ry Catheter Insertion triggered Urinalysis With Culture Reflex order by discern. Performed By: #### 2 139140, [id number], [id number], [id number], [id number] #### [facility] [address] [place] [address] Burt.plasma/Burt. RBC (Bld) [Mass ratio] >75 Abnormal 0-3 [facility] Comment on above: Order Comment: Urina ry Catheter Insertion triggered Urinalysis With Culture Reflex order by discern. Performed By: #### 2 515796, [id number], [id number], [id number], [id number] #### [facility] [address] [place] [address] Mucus Ql (Urine sed) 1+ Normal [facility] Comment on above: Order Comment: Urina ry Catheter Insertion triggered Urinalysis With Culture Reflex order by discern. Performed By: #### 2 511980, [id number], [id number], [id number], [id number] #### [facility] [address] [place] [address] Nitrite Ql (U) Positive Abnormal Negative [facility] Comment on above: Order Comment: Urina ry Catheter Insertion triggered Urinalysis With Culture Reflex order by discern. Performed By: #### 2 209653, [id number], [id number], [id number], [id number] #### [facility] [address] [place] [address] pH (U) 7.5 [pH] Invalid Interpretation Code 5.0-9.0 [facility] Comment on above: Order Comment: Urina ry Catheter Insertion triggered Urinalysis With Culture Reflex order by discern. Performed By: #### 2 063703, [id number], 1239741, [id number], [id number] #### [facility] [address] [place] [address] Protein (U) [Mass/Vol] 3+ Abnormal Negative [facility] Comment on above: Order Comment: Urina ry Catheter Insertion triggered Urinalysis With Culture Reflex order by discern. Performed By: #### 2 043834, [id number], 5828694, [id number], [id number] #### [facility] [address] [place] [address] Specific gravity (U) [Rel density] 1.015 Invalid Interpretation Code 1.005-1.03 0 [facility] Comment on above: Order Comment: Urina ry Catheter Insertion triggered Urinalysis With Culture Reflex order by discern. Performed By: #### 2 563876, [id number], 5394666, [id number], [id number] #### [facility] [address] [place] [address] Type of Urine collection method Catheter Normal [facility] Comment on above: Order Comment: Urina ry Catheter Insertion triggered Urinalysis With Culture Reflex order by discern. Performed By: #### 2 866679, [id number], 2345005, [id number], [id number] #### [facility] [address] [place] [address] Urobilinogen Qn (U) >=8.0 Abnormal 0.0-1.0 [facility] Comment on above: Order Comment: Urina ry Catheter Insertion triggered Urinalysis With Culture Reflex order by discern. Performed By: #### 2 014539, [id number], 8756100, [id number], [id number] #### [facility] [address] [place] [address] WBC Auto Ql (U) 2+ Abnormal Negative [facility] Comment on above: Order Comment: Urina ry Catheter Insertion triggered Urinalysis With Culture Reflex order by discern. Performed By: #### 2 031594, [id number], 1965625, [id number], [id number] #### [facility] [address] [place] [address] WBC LM.HPF (Urine sed) [#/Area] 16-25 Abnormal 0-5 [facility] Comment on above: Order Comment: Urina ry Catheter Insertion triggered Urinalysis With Culture Reflex order by discern. Performed By: #### 2 387596, [id number], 5320025, [id number], [id number] #### [facility] [address] [place] [address] URINALYSISOrdered By: Jordan quintana on 08-26-2022 Bacteria [...] Interpretation Code Negative [facility] UA Auto SS Burt.plasma/Burt. RBC (Bld) [Mass ratio] >75 /HPF Invalid Interpretation Code 0-3/HPF [facility] UA Auto SS Mucus Ql (Urine sed) 1+ (08/26/22 6:58 PM) Normal [facility] UA Auto SS Nitrite Ql (U) Positive [...] Spec Desc Catheter (08/26/22 6:58 PM) Normal [facility] UA Auto SS Urobilinogen Qn (U) {Belem'U}/dL [...] [Vol rate/Area] 88 mL/min/1.73 m2 Normal >=59 [facility] Comment on above: Order Comment: Order added by Discern Expert. Result Comment: [employer] Consultant elio kidney disease could be indicated at eGFR's of less than 60 mL/min/1.73m2. Kidney failure is indicated at less than 15 mL/min/1.73m2. Performed By: #### 2 657462, [id number], [id number], [id number], [id number] #### [facility] [address] [place] [address] Basic Metabolic Panelon 07-0 Anion gap [Moles/Vol] 10.8 mmol/L Normal 6.0-15.0 [facility] Comment on above: Performed By: #### H S TROP #### [facility] [address] [place] [address] Calcium [Mass/Vol] 9.0 mg/dL Normal 8.6-10.3 [facility] Comment on above: Performed By: #### H S TROP #### [facility] [address] Chloride [Moles/Vol] 105 mmol/L Normal 98-107 [facility] Comment on above: Performed By: #### H S TROP #### [facility] [address] CO2 [Moles/Vol] 26.0 mmol/L Normal 21.0-31.0 [facility] Comment on above: Performed By: #### H S TROP #### [facility] [address] [place] [address] [place] Creatinine [Mass/Vol] 0.79 mg/dL Normal 0.70-1.30 [facility] Comment on above: Performed By: #### H S TROP #### [facility] [address] [place] [address] [place] Creatinine Clr Calc Pharmacy 74.81 Normal [facility] Comment on above: Result Comment: PERF ORMED BY: [place] [address] PATHOLOGIST DROP CLIPPER DREW REAL M.D. Performed By: #### H S TROP #### [place] [address] [place] GFR/1.73 sq M.predicted MDRD (S/P/Bld) [Vol rate/Area] mL/min/{1.73_m2} Normal [facility] Comment on above: Performed By: #### H S TROP #### [place] [address] [place] Glucose [Mass/Vol] 133 mg/dL High 70-100 [facility] Comment on above: Result Comment: [facility] Glucose Reference Range is dependent on time and content of last meal. Glucose of more than 200 mg/dL in a nonstressed, ambulatory subject supports the diagnosis of Diabetes Mellitus. ADA recommended reference range Performed By: #### H S TROP #### [address] Potassium [Moles/Vol] 3.8 mmol/L Normal 3.5-5.1 [facility] Comment on above: Performed By: #### H S TROP #### [place] [address] [place] Sodium [Moles/Vol] 138 mmol/L Normal 136-145 [facility] Comment on above: Performed By: #### H S TROP #### [address] Urea nitrogen [Mass/Vol] 20 mg/dL Normal 7-25 [facility] Comment on above: Performed By: #### H S TROP #### [place] [address] [place] Basophils Auto (Bld) [#/Vol] Ordered By: Steven Zamora on 08-22-2022 Basophils (Bld) [#/Vol] 0.0 10*3/uL 0.0-0.2 [facility] Basophils/100 WBC Auto (Bld) Ordered By: Steven Zamora on 08-22-2022 Basophils/100 WBC (Bld) 0.3 % . [facility] Calcium [Mass/volume] in Ser um or PlasmaOrdered By: Steven Zamora on 07-05-2023 Calcium [Mass/Vol] 9.0 mg/dL 8.6-10.3 [facility] Carbon dioxide, total [Moles /volume] in Serum or PlasmaOrdered By: Steven Zamora on 08-22-2022 CO2 [Moles/Vol] 26.0 mmol/L 21.0-31.0 [facility] Chloride [Moles/volume] in S jamin or PlasmaOrdered By: Steven Zamora on 08-22-2022 Chloride [Moles/Vol] 105 mmol/L 98-107 [facility] Complete Blood Count Auto Di ffon 08-22-2022 Basophils (Bld) [#/Vol] 0.0 10*3/uL Normal 0.0-0.2 [facility] Comment on above: Result Comment: PERF ORMED BY: [place] [address] PATHOLOGIST DROP CLIPPER DREW REAL M.D. Performed By: #### H S TROP #### [address] Basophils/100 WBC (Bld) 0.3 % Normal . [facility] Comment on above: Performed By: #### H S TROP #### [address] Eosinophils (Bld) [#/Vol] 0.1 10*3/uL Normal 0.0-0.45 [facility] Comment on above: Performed By: #### H S TROP #### [address] Eosinophils/100 WBC (Bld) 1.6 % Normal . [facility] Comment on above: Performed By: #### H S TROP #### [address] Erythrocyte distribution width (RBC) [Ratio] 13.7 % Normal 12.0-14.8 [facility] Comment on above: Performed By: #### H S TROP #### [address] Hematocrit (Bld) [Volume fraction] 41.1 % Normal 38.8-50.0 [facility] Comment on above: Performed By: #### H S TROP #### [facility] [address] Hemoglobin (Bld) [Mass/Vol] 13.9 g/dL Normal 13.0-17.0 [facility] Comment on above: Performed By: #### H S TROP #### [facility] [address] Lymphocytes (Bld) [#/Vol] 1.4 10*3/uL Normal 1.00-4.8 [facility] Comment on above: Performed By: #### H S TROP #### [address] Lymphocytes/100 WBC (Bld) 15.9 % Normal . [facility] Comment on above: Performed By: #### H S TROP #### [address] MCH (RBC) [Entitic mass] 31.5 pg Normal 27.5-35.2 [facility] Comment on above: Performed By: #### H S TROP #### [address] MCV (RBC) [Entitic vol] 92.8 fL Normal 83.5-101 F [facility] Comment on above: Performed By: #### H S TROP #### [address] Mean Corpuscular HGB Conc 33.9 g/dL Normal 32.5-35.6 [facility] Comment on above: Performed By: #### H S TROP #### [place] [address] [place] Monocytes (Bld) [#/Vol] 0.9 10*3/uL High 0.0-0.8 [facility] Comment on above: Performed By: #### H S TROP #### [address] Monocytes/100 WBC (Bld) 9.7 % Normal . [facility] Comment on above: Performed By: #### H S TROP #### [facility] [address] [place] [address] [place] Neutrophils (Bld) [#/Vol] 6.4 10*3/uL Normal 1.8-7.7 [facility] Comment on above: Performed By: #### H S TROP #### [facility] [address] [place] [address] [place] Neutrophils/100 WBC (Bld) 72.5 % Normal . [facility] Comment on above: Performed By: #### H S TROP #### [facility] [address] [place] [address] [place] NRBC% 0.1 /100{WBC} Normal 0-0.5 [facility] Comment on above: Performed By: #### H S TROP #### [address] Platelet mean volume (Bld) [Entitic vol] 9.6 fL Normal 6.6-10.1 [facility] Comment on above: Performed By: #### H S TROP #### [place] [address] [place] Platelets (Bld) [#/Vol] 162 10*3/uL Normal 150-450 [facility] Comment on above: Performed By: #### H S TROP #### [facility] [address] [place] [address] [place] RBC (Bld) [#/Vol] 4.43 10*6/uL Normal 3.90-5.60 [facility] Comment on above: Performed By: #### H S TROP #### [place] [address] [place] WBC (Bld) [#/Vol] 8.8 10*3/uL Normal 4.1-10.5 [facility] Comment on above: Performed By: #### H S TROP #### [place] [address] [place] Creatinine [Mass/volume] in Serum or PlasmaOrdered By: Steven Zamora on 08-22-2022 Creatinine [Mass/Vol] 0.79 mg/dL 0.70-1.30 [facility] ECG 12 lead ECGon 08-22-2022 [address] [facility] [place] [address] Electrocardiograph Report Signed Patient: Olaf Briones MR#: [id number] [birth year] : 1945 Acct:[id number] Age/Sex: 77 / M ADM Date: 08/20/22 Loc: Room: [address] [place] [address] Type: ADM IN Attending Dr: Steven Zamora [...] By Joshua Atwood DO 08/22 0906 Normal [facility] ECH echo transthoracicon ECH echo transthoracic [facility] [place] [address] Echocardiogram Signed Patient: Olaf Briones MR#: [id number] 2 : 1945 Acct:[id number] Age/Sex: 77 / M ADM Date: 08/20/22 Loc: Room: [address] [place] [address] Type: ADM IN Attending Dr: Steven Zamora [...] 08/22/22 0837 Signed By: Rojas Resendiz MD, [facility] 08/22/22 1514 Normal [facility] Eosinophils Auto (Bld) [#/Vo l]Ordered By: Steven Zamora on 08-22-2022 Eosinophils (Bld) [#/Vol] 0.1 10*3/uL 0.0-0.45 [facility] Eosinophils/100 WBC Auto (Bl d)Ordered By: Steven Zamora on 08-22-2022 Eosinophils/100 WBC (Bld) 1.6 % . [facility] Erythrocyte distribution wid th Auto (RBC) [Ratio]Ordered By: Steven Zamora on 08-22-2022 Erythrocyte distribution width (RBC) [Ratio] 13.7 % 12.0-14.8 [facility] Glucose [Mass/volume] in Ser um or PlasmaOrdered By: Steven Zamora on 08-22-2022 Glucose [Mass/Vol] 133 mg/dL 70-100 [facility] Comment on above: ADA recommended refe rence rangeRandom Glucose Reference Range is dependent on time and content of last meal. Glucose of more than 200 mg/dL in a nonstressed, ambulatory subject supports the diagnosis of Diabetes Mellitus. Hematocrit Auto (Bld) [Volum e fraction]Ordered By: Steven Zamora on 08-22-2022 Hematocrit (Bld) [Volume fraction] 41.1 % 38.8-50.0 [facility] Hemoglobin [Mass/volume] in BloodOrdered By: Steven Zamora on 08-22-2022 Hemoglobin (Bld) [Mass/Vol] 13.9 g/dL 13.0-17.0 [facility] Leukocytes [#/volume] correc betty for nucleated erythrocytes in Blood by Automated counOrdered By: Steven Zamora on 08-22-2022 WBC corrected for nucl RBC Auto (Bld) [#/Vol] 8.8 10*3/uL 4.1-10.5 [facility] Lymphocytes Auto (Bld) [#/Vo l]Ordered By: Steven Zamora on 08-22-2022 Lymphocytes (Bld) [#/Vol] 1.4 10*3/uL 1.00-4.8 [facility] Lymphocytes/100 WBC Auto (Bl d)Ordered By: Steven Zamora on 08-22-2022 Lymphocytes/100 WBC (Bld) 15.9 % . [facility] MCH Auto (RBC) [Entitic mass ]Ordered By: Steven Zamora on 08-22-2022 MCH (RBC) [Entitic mass] 31.5 pg 27.5-35.2 [facility] MCHC Auto (RBC) [Mass/Vol]Or dered By: Steven Zamora on 08-22-2022 MCHC (RBC) [Mass/Vol] 33.9 g/dL 32.5-35.6 [facility] MCV Auto (RBC) [Entitic vol] Ordered By: Steven Zamora on 08-22-2022 MCV (RBC) [Entitic vol] 92.8 fL 83.5-101 F [facility] Monocytes Auto (Bld) [#/Vol] Ordered By: Steven Zamora on 08-22-2022 Monocytes (Bld) [#/Vol] 0.9 10*3/uL 0.0-0.8 [facility] Monocytes/100 WBC Auto (Bld) Ordered By: Steven Zamora on 08-22-2022 Monocytes/100 WBC (Bld) 9.7 % . [facility] Neutrophils Auto (Bld) [#/Vo l]Ordered By: Steven Zamora on 08-22-2022 Neutrophils (Bld) [#/Vol] 6.4 10*3/uL 1.8-7.7 [facility] Neutrophils/100 WBC Auto (Bl d)Ordered By: Steven Zamora on 08-22-2022 Neutrophils/100 WBC (Bld) 72.5 % . [facility] No Panel InformationOrdered By: Steven Zamora on 08-22-2022 Estimated GFR (CKD-EPI) > 60.0 mL/Min [facility] Creatinine Clearance (Chem 74.81 [facility] No Panel Informationon 08-22 0.0\S\0.0 Normal 0.0-0.2 -[facility]-Sandu eduardo 250 DO Work Phone: [phone] Comment on above: PERFORMED BY:[facility] [place] [phone] MEDICAL DIRECTORDREW REAL M.D. 0.1\S\0.1 Normal 0-0.5 [facility]u ed[address]ardo [address] DO Work Phone: [phone] 0.9\S\0.9 above high threshold 0.0-0.8 -[facility]u ed[address]ardo 250 DO Work Phone: [phone] 1.4\S\1.4 Normal 1.00-4.8 -[facility]u eduardo 250 DO Work Phone: [phone] 6.4\S\6.4 Normal 1.8-7.7 -[facility]-Sandu eduardo 250 DO Work Phone: [phone] 0.3\S\0.3 Normal . [facility] ed[address]ardo [address] DO Work Phone: [phone] 1.6\S\1.6 Normal . [facility] ed[address]ardo [address] DO Work Phone: [phone] 9.7\S\9.7 Normal . [facility] ed[address]ardo [address] DO Work Phone: [phone] 15.9\S\15.9 Normal . [facility] ed[address]ardo [address] DO Work Phone: [phone] 72.5\S\72.5 Normal . [facility] ed[address]ardo 250 DO Work Phone: [phone] 9.6\S\9.6 Normal 6.6-10.1 -[facility]u ed[address]ardo [address] DO Work Phone: [phone] 162\S\162 Normal 150-450 -[facility]u eduardo 250 DO Work Phone: [phone] 13.7\S\13.7 Normal 12.0-14.8 [facility]u ed[address]ardo 250 DO Work Phone: [phone] 33.9\S\33.9 Normal 32.5-35.6 [facility]-Sandu eduardo 250 DO Work Phone: [phone] 31.5\S\31.5 Normal 27.5-35.2 [facility]-[place] eduardo 250 DO Work Phone: [phone] 92.8\S\92.8 Normal 83.5-101 [facility]-[place] eduardo 250 DO Work Phone: [phone] 41.1\S\41.1 Normal 38.8-50.0 [facility]-[place] eduardo 250 DO Work Phone: [phone] 13.9\S\13.9 Normal 13.0-17.0 [facility] DO Work Phone: [phone] 4.43\S\4.43 Normal 3.90-5.60 [facility] DO Work Phone: [phone] 8.8\S\8.8 Normal 4.1-10.5 [facility]-[place] eduardo 250 DO Work Phone: [phone] > 60.0 Normal [facility] DO Work Phone: [phone] 10.8\S\10.8 Normal 6.0-15.0 [facility] DO Work Phone: [phone] 74.81\S\74.81 Normal [facility]-[place] eduardo 250 DO Work Phone: [phone] Comment on above: PERFORMED BY:[place] [address] [address] [place], [place] [phone] MEDICAL DIRECTORDREW REAL M.D. 9.0\S\9.0 Normal 8.6-10.3 [facility] ed[facility]ardo 250 DO Work Phone: 26.0\S\26.0 Normal 21.0-31.0 -[facility] Dahuwalter eduardo 250 DO Work Phone: 105\S\105 Normal 98-107 [facility] Dahuwalter eduardo 250 DO Work Phone: 3.8\S\3.8 Normal 3.5-5.1 -[facility] Dahuwalter eduardo 250 DO Work Phone: 138\S\138 Normal 136-145 -[facility] Dahuwalter eduardo 250 DO Work Phone: 0.79\S\0.79 Normal 0.70-1.30 [facility] [employer].comCamacho eduardo 250 DO Work Phone: [phone] 20\S\20 Normal 7-25 -[facility] [employer]Cone[employer].comCamacho eduardo 250 DO Work Phone: 133\S\133 above high threshold 70-100 -[facility] [employer]one[employer].comCamacho eduardo 250 DO Work Phone: Comment on [...] RBC Auto Ql (Bld) 0.1 /100{WBC} 0-0.5 [facility] Platelet mean volume Auto (B ld) [Entitic vol]Ordered By: Steven Zamora on 08-22-2022 Platelet mean volume (Bld) [Entitic vol] 9.6 fL 6.6-10.1 [facility] Platelets Auto (Bld) [#/Vol] Ordered By: Steven Zamora on 08-22-2022 Platelets (Bld) [#/Vol] 162 10*3/uL 150-450 [facility] Potassium [Moles/volume] in Serum or PlasmaOrdered By: Steven Zamora on 08-22-2022 Potassium [Moles/Vol] 3.8 mmol/L 3.5-5.1 [facility] RBC Auto (Bld) [#/Vol]Ordere d By: Steven Zamora on 08-22-2022 RBC (Bld) [#/Vol] 4.43 10*6/uL 3.90-5.60 [facility] Serum or plasma anion gap de terminationOrdered By: Steven Zamora on 08-22-2022 Anion gap [Moles/Vol] 10.8 mmol/L 6.0-15.0 [facility] Sodium [Moles/volume] in Ser um or PlasmaOrdered By: Steven Zamora on 08-22-2022 Sodium [Moles/Vol] 138 mmol/L 136-145 [facility] Urea nitrogen [Mass/volume] in Serum or PlasmaOrdered By: Steven Zamora on 08-22-2022 Urea nitrogen [Mass/Vol] 20 mg/dL 7-25 [facility] WBC Auto (Bld) [#/Vol]Ordere d By: Steven Zamora on 08-22-2022 WBC (Bld) [#/Vol] 8.8 10*3/uL 4.1-10.5 [facility] Basic Metabolic Panelon 070 Anion gap [Moles/Vol] 11.7 mmol/L Normal 6.0-15.0 [facility] Comment on above: Performed By: #### H S TROP #### [facility] [address] [place] [address] [place] Calcium [Mass/Vol] 9.4 mg/dL Normal 8.6-10.3 [facility] Comment on above: Performed By: #### H S TROP #### [facility] [address] [place] [address] [place] Chloride [Moles/Vol] 103 mmol/L Normal 98-107 [facility] Comment on above: Performed By: #### H S TROP #### [facility] [address] [place] [address] [place] CO2 [Moles/Vol] 27.1 mmol/L Normal 21.0-31.0 [facility] Comment on above: Performed By: #### H S TROP #### [facility] [address] [place] [address] [place] Creatinine [Mass/Vol] 0.71 mg/dL Normal 0.70-1.30 [facility] Comment on above: Performed By: #### H S TROP #### [facility] [address] [place] [address] [place] Creatinine Clr Calc Pharmacy 74.81 [facility] Comment on above: Performed By: #### H S TROP #### [facility] [address] [place] [address] [place] GFR/1.73 sq M.predicted MDRD (S/P/Bld) [Vol rate/Area] mL/min/{1.73_m2} [facility] Comment on above: Performed By: #### H S TROP #### [place] [address] [place] Glucose [Mass/Vol] 162 mg/dL High 70-100 [facility] Comment on above: Result Comment: [facility] Glucose Reference Range is dependent on time and content of last meal. Glucose of more than 200 mg/dL in a nonstressed, ambulatory subject supports the diagnosis of Diabetes Mellitus. ADA recommended reference range Performed By: #### H S TROP #### [place] [address] [place] Potassium [Moles/Vol] 3.8 mmol/L Normal 3.5-5.1 [facility] Comment on above: Performed By: #### H S TROP #### [place] [address] [place] Sodium [Moles/Vol] 138 mmol/L Normal 136-145 [facility] Comment on above: Performed By: #### H S TROP #### [place] [address] [place] Urea nitrogen [Mass/Vol] 12 mg/dL Normal 7-25 [facility] Comment on above: Performed By: #### H S TROP #### [facility] [address] [place] [address] [place] Cholesterol [Mass/volume] in Serum or PlasmaOrdered By: Steven Zamora on 08-21-2022 Cholesterol [Mass/Vol] 132 mg/dL 140-200 [facility] Comment on above: Chol less than 200 m g/dl low riskChol 201-239 mg/dl borderline riskChol 240 mg/dl and greater high risk Cholesterol in LDL Calc [Mas s/Vol]Ordered By: Steven Zamora on 08-21-2022 Cholesterol in LDL [Mass/Vol] 62 mg/dL 0-100 [facility] Comment on above: LDL ATP III CLASSIFI CATIONLDL less than 100 mg/dL OptimalLDL 100-129 mg/dL Near or above optimalLDL 130-159 mg/dL Borderline highLDL 160-189 mg/dL HighLDL greater than 189 mg/dL Very high Cholesterol in VLDL Calc [Ma ss/Vol]Ordered By: Steven Zamora on 08-21-2022 Cholesterol in VLDL [Mass/Vol] 24 mg/dL [facility] Complete Blood Count Auto Di ffon 08-21-2022 Basophils (Bld) [#/Vol] 0.0 10*3/uL Normal 0.0-0.2 [facility] Comment on above: Result Comment: PERF ORMED BY: [place] [address] PATHOLOGIST DROP CLIPPER DREW REAL M.D. Performed By: #### H S TROP #### [facility] [address] [place] [address] [place] Basophils/100 WBC (Bld) 0.2 % Normal . [facility] Comment on above: Performed By: #### H S TROP #### [facility] [address] [place] [address] [place] Eosinophils (Bld) [#/Vol] 0.0 10*3/uL Normal 0.0-0.45 [facility] Comment on above: Performed By: #### H S TROP #### [facility] [address] [place] [address] [place] Eosinophils/100 WBC (Bld) 0.1 % Normal . [facility] Comment on above: Performed By: #### H S TROP #### [address] Erythrocyte distribution width (RBC) [Ratio] 13.5 % Normal 12.0-14.8 [facility] Comment on above: Performed By: #### H S TROP #### [address] Hematocrit (Bld) [Volume fraction] 42.7 % Normal 38.8-50.0 [facility] Comment on above: Performed By: #### H S TROP #### [address] Hemoglobin (Bld) [Mass/Vol] 14.6 g/dL Normal 13.0-17.0 [facility] Comment on above: Performed By: #### H S TROP #### [address] Lymphocytes (Bld) [#/Vol] 1.1 10*3/uL Normal 1.00-4.8 [facility] Comment on above: Performed By: #### H S TROP #### [address] Lymphocytes/100 WBC (Bld) 8.2 % Normal . [facility] Comment on above: Performed By: #### H S TROP #### [address] MCH (RBC) [Entitic mass] 31.4 pg Normal 27.5-35.2 [facility] Comment on above: Performed By: #### H S TROP #### [address] MCV (RBC) [Entitic vol] 91.6 fL Normal 83.5-101 F [facility] Comment on above: Performed By: #### H S TROP #### [address] Mean Corpuscular HGB Conc 34.3 g/dL Normal 32.5-35.6 [facility] Comment on above: Performed By: #### H S TROP #### [address] Monocytes (Bld) [#/Vol] 0.8 10*3/uL Normal 0.0-0.8 [facility] Comment on above: Performed By: #### H S TROP #### [facility] [address] Monocytes/100 WBC (Bld) 6.1 % Normal . [facility] Comment on above: Performed By: #### H S TROP #### [facility] [address] Neutrophils (Bld) [#/Vol] 11.7 10*3/uL High 1.8-7.7 [facility] Comment on above: Performed By: #### H S TROP #### [address] Neutrophils/100 WBC (Bld) 85.4 % Normal . [facility] Comment on above: Performed By: #### H S TROP #### [facility] [address] [place] [address] NRBC% 0.0 /100{WBC} Normal 0-0.5 [facility] Comment on above: Performed By: #### H S TROP #### [facility] [address] [place] [address] Platelet mean volume (Bld) [Entitic vol] 9.5 fL Normal 6.6-10.1 [facility] Comment on above: Performed By: #### H S TROP #### [facility] [address] [place] [address] [place] Platelets (Bld) [#/Vol] 171 10*3/uL Normal 150-450 [facility] Comment on above: Performed By: #### H S TROP #### [facility] [address] [place] [address] [place] RBC (Bld) [#/Vol] 4.66 10*6/uL Normal 3.90-5.60 [facility] Comment on above: Performed By: #### H S TROP #### [facility] [address] [place] [address] WBC (Bld) [#/Vol] 13.6 10*3/uL High 4.1-10.5 [facility] Comment on above: Performed By: #### H S TROP #### [address] ECG 12 lead ECGon 08-21-2022 ECG [address] [facility] [address] [place] [address] [place] [address] Electrocardiograph Report Signed Patient: Olaf Briones MR#: [id number] [birth year] : 1945 Acct:[id number] Age/Sex: 77 / M ADM Date: 08/20/22 Loc: Room: [address] [place] [address] Type: REG SDC Attending Dr: Steven Zamora [...] Signed By Joshua Atwood DO 08/21 0917 [facility] Glucose Glucometer (BldC) [M ass/Vol]Ordered By: Steven Zamora on 08-21-2022 Glucose [Mass/Vol] 121 mg/dL [facility] Comment on above: Random Glucose Refer ence Range is dependent on time and content of last meal. Glucose of more than 200 mg/dL in a nonstressed, ambulatory subject supports the diagnosis of Diabetes Mellitus. Glucose Poct Glucometerson 0 08-21-2022 Commemt1 Glu2: Cleaned Meter [facility] Comment on above: Result Comment: PERF ORMED BY: [place] [address] PATHOLOGIST DROP CLIPPER DREW REAL M.D. Performed By: #### H S TROP #### [address] Glucose [Mass/Vol] 121 mg/dL Normal [facility] Comment on above: Result Comment: [place] om Glucose Reference Range is dependent on time and content of last meal. Glucose of more than 200 mg/dL in a nonstressed, ambulatory subject supports the diagnosis of Diabetes Mellitus. Performed By: #### H S TROP #### [address] Commemt1 Glu2: Cleaned Meter Normal [facility] Comment on above: Result Comment: PERF ORMED BY: [place] [address] PATHOLOGIST DROP CLIPPER DREW REAL M.D. Performed By: #### H S TROP #### [address] Glucose [Mass/Vol] 137 mg/dL Normal [facility] Comment on above: Result Comment: [place] om Glucose Reference Range is dependent on time and content of last meal. Glucose of more than 200 mg/dL in a nonstressed, ambulatory subject supports the diagnosis of Diabetes Mellitus. Performed By: #### H S TROP #### [address] Laboratory - Chemistry and C hemistry - challengeon 08-21-2022 Cholesterol [Mass/Vol] 132\S\132 below low threshold 140-200 -[facility] DO Work Phone: Comment on above: Chol less than 200 m g/dl low risk Chol 201-239 mg/dl borderline risk Chol 240 mg/dl and greater high risk Cholesterol in LDL [Mass/Vol] 62\S\62 Normal 0-100 [facility] DO Work Phone: Comment on above: LDL ATP III CLASSIFI CATION LDL less than 100 mg/dL Optimal LDL 100-129 mg/dL Near or above optimal LDL 130-159 mg/dL Borderline high LDL 160-189 mg/dL High LDL greater than 189 mg/dL Very high Lipid Panelon 08-21-2022 Cholesterol [Mass/Vol] 132 mg/dL Low 140-200 [facility] Comment on above: Result Comment: Chol less than 200 mg/dl low risk Chol 201-239 mg/dl borderline risk Chol 240 mg/dl and greater high risk Performed By: #### H S TROP #### [facility] [address] [place] [id number] [place] Cholesterol in HDL [Mass/Vol] 45 mg/dL Normal 23-92 [facility] Comment on above: Result Comment: HDL CHOL ATP-III CLASSIFICATION Cardiovascular Risk HDL > or equal to 60 mg/dL LOW HDL < 40 mg/dL HIGH Performed By: #### H S TROP #### [facility] [address] [place] [address] [place] Cholesterol.total/Reny sterol in HDL [Mass ratio] 2.9 {ratio} Normal <5.0 [facility] Comment on above: Result Comment: PERF ORMED BY: [place] [address] PATHOLOGIST DROP CLIPPER DREW REAL M.D. Performed By: #### H S TROP #### [facility] [address] LDL Cholesterol,Calculated 62 mg/dL Normal 0-100 [facility] Comment on above: Result Comment: LDL ATP III CLASSIFICATION LDL less than 100 mg/dL Optimal LDL 100-129 mg/dL Near or above optimal LDL 130-159 mg/dL Borderline high LDL 160-189 mg/dL High LDL greater than 189 mg/dL Very high Performed By: #### H S TROP #### [facility] [address] [place] [id number] [place] Triglyceride w/Reflex 124 mg/dL Normal 0-149 [facility] Comment on above: Result Comment: TRIG ATP III CLASSIFICATION TRIG less than 150 mg/dL Normal TRIG 150-199 mg/dL Borderline high TRIG 200-500 mg/dL High TRIG greater than 500 mg/dL Very high Standard traceable to the Center for Disease Conrtrol and Prevention (CDC) test method. Performed By: #### H S TROP #### [facility] [address] VLDL CHOLESTEROL 24 mg/dL Normal [facility] Comment on above: Performed By: #### H S TROP #### [facility] [address] No Panel InformationOrdered By: Steven Zamora on 08-21-2022 Bedside Glucose Comment Glu2: cleaned meter [facility] No Panel Informationon 08-21 Glu2: Cleaned Meter Normal -No rth [place] [facility] eduardo 250 DO Work Phone: Comment on above: PERFORMED BY:[place] [address] [address] BEASLEY[address]OLD [place], [place] [phone] MEDICAL DIRECTORDREW REAL M.D. 121\S\121 Normal [facility] 250 DO Work Phone: Comment on above: Random Glucose Refer ence Range is dependent on time and content of last meal. Glucose of more than 200 mg/dL in a nonstressed, ambulatory subject supports the diagnosis of Diabetes Mellitus. Glu2: Cleaned Meter Normal -No rth [place] [facility] DO Work Phone: Comment on above: PERFORMED BY:[place] [address] [address] BRITO[address] [place], [place] [phone] MEDICAL DIRECTORDREW REAL M.D. 137\S\137 Normal [facility] DO Work Phone: Comment on above: Random Glucose Refer ence Range is dependent on time and content of last meal. Glucose of more than 200 mg/dL in a nonstressed, ambulatory subject supports the diagnosis of Diabetes Mellitus. 0.0\S\0.0 Normal 0-0.5 [facility] DO Work Phone: Comment on above: PERFORMED BY:[place] [address] [address] [place], [place] [phone] MEDICAL DIRECTORDREW REAL M.D. 0.8\S\0.8 Normal 0.0-0.8 [facility] eduardo 250 DO Work Phone: [phone] 1.1\S\1.1 Normal 1.00-4.8 [facility] eduardo 250 DO Work Phone: [phone] 11.7\S\11.7 Normal 6.0-15.0 [facility] eduardo 250 DO Work Phone: [phone] 0.2\S\0.2 Normal . [facility] eduardo 250 DO Work Phone: [phone] 0.1\S\0.1 Normal . [facility] 250 DO Work Phone: [phone] 6.1\S\6.1 Normal . [facility] eduardo 250 DO Work Phone: [phone] 8.2\S\8.2 Normal . [facility] eduardo 250 DO Work Phone: [phone] 85.4\S\85.4 Normal . [facility] eduardo 250 DO Work Phone: [phone] 9.5\S\9.5 Normal 6.6-10.1 [facility] eduardo 250 DO Work Phone: [phone] 171\S\171 Normal 150-450 [facility] eduardo 250 DO Work Phone: [phone] 13.5\S\13.5 Normal 12.0-14.8 [facility] eduardo 250 DO Work Phone: [phone] 34.3\S\34.3 Normal 32.5-35.6 [facility] eduardo 250 DO Work Phone: [phone] 31.4\S\31.4 Normal 27.5-35.2 [facility] eduardo 250 DO Work Phone: [phone] 91.6\S\91.6 Normal 83.5-101 [facility] eduardo 250 DO Work Phone: [phone] 42.7\S\42.7 Normal 38.8-50.0 [facility] eduardo 250 DO Work Phone: [phone] 14.6\S\14.6 Normal 13.0-17.0 [facility] eduardo 250 DO Work Phone: [phone] 4.66\S\4.66 Normal 3.90-5.60 [facility] eduardo 250 DO Work Phone: [phone] 13.6\S\13.6 above high threshold 4.1-10.5 -[facility] eduardo 250 DO Work Phone: > 60.0 Normal [facility] eduardo 250 DO Work Phone: [phone] 74.81\S\74.81 Normal [facility] eduardo 250 DO Work Phone: [phone] 9.4\S\9.4 Normal 8.6-10.3 [facility] eduardo 250 DO Work Phone: 27.1\S\27.1 Normal 21.0-31.0 [facility] eduardo 250 DO Work Phone: 103\S\103 Normal 98-107 [facility] eduardo 250 DO Work Phone: [phone] 3.8\S\3.8 Normal 3.5-5.1 [facility] eduardo 250 DO Work Phone: [phone] 138\S\138 Normal 136-145 [facility] eduardo 250 DO Work Phone: [phone] 0.71\S\0.71 Normal 0.70-1.30 [facility] eduardo 250 DO Work Phone: [phone] 12\S\12 Normal 7-25 [facility] eduardo 250 DO Work Phone: 162\S\162 above high threshold 70-100 [facility] [employer] DO Work Phone: Comment on above: Random Glucose Refer ence Range is dependent on time and content of last meal. Glucose of more than 200 mg/dL in a nonstressed, ambulatory subject supports the diagnosis of Diabetes Mellitus. ADA recommended reference range 2.9\S\2.9 Normal <5.0 [facility] [employer] DO Work Phone: Comment on above: PERFORMED BY:[place] [address] [address] [place] [phone] MEDICAL DIRECTORDREW REAL M.D. 24\S\24 Normal [facility] eduardo [employer] DO Work Phone: 124\S\124 Normal 0-149 [facility] DO Work Phone: Comment on above: TRIG ATP III CLASSIF ICATION TRIG less than 150 mg/dL Normal TRIG 150-199 mg/dL Borderline high TRIG 200-500 mg/dL High TRIG greater than 500 mg/dL Very high Standard traceable to the Center for Disease Conrtrol and Prevention (CDC) test method. 45\S\45 Normal 23-92 [facility] [employer] clark [employer] [place] [employer] DO Work Phone: Comment on above: HDL CHOL ATP-III CLA SSIFICATION Cardiovascular Risk HDL > or equal to 60 mg/dL LOW HDL < 40 mg/dL HIGH 29338.9\S\07838.9 Critically high 0.0-20.0 [facility] [employer] DO Work Phone: Comment on above: Critical Result : Ca lled to and read back by: MARC BUSTILLOS at: 08/21/2022 06:30:29 by:[id number] BY:[place] [address] [address] [place] [phone] MEDICAL DIRECTORDREW REAL M.D. 31096.9\S\64253.9 Critically high 0.0-20.0 [facility] eduardo 250 DO Work Phone: Comment on above: Critical Result : Ca lled to and read back by: RIDGE WATERS at: 08/21/2022 04:23:36 by:[id number] BY:[place] [address] [place] [place], [place] [phone] MEDICAL DIRECTORDREW REAL M.D. 96235.3\S\45924.3 Critically high 0.0-20.0 [facility] 250 DO Work Phone: Comment on above: Critical Result : Ca lled to and read back by: SALLY BUSTILLOS at: 08/21/2022 00:52:26 by:[id number] BY:[place] [address] [address] [place], [place] [phone] MEDICAL DIRECTORDREW REAL M.D. Serum or plasma high density lipoprotein (HDL) cholesterol measurementOrdered By: Steven Zamroa on 08-21-2022 Cholesterol in HDL [Mass/Vol] 45 mg/dL 23-92 [facility] Comment on above: HDL CHOL ATP-III CLA SSIFICATION Cardiovascular RiskHDL > or equal to 60 mg/dL LOWHDL < 40 mg/dL HIGH Serum or plasma total choles terol/high density lipoprotein (HDL) cholesterol mass ratOrdered By: Steven Zamora on 08-21-2022 Cholesterol.total/Reny sterol in HDL [Mass ratio] 2.9 {ratio} <5.0 [facility] Triglyceride [Mass/volume] i n Serum or PlasmaOrdered By: Steven Zamora on 08-21-2022 Triglyceride [Mass/Vol] 124 mg/dL 0-149 F [facility] Comment on above: TRIG ATP III CLASSIF ICATIONTRIG less than 150 mg/dL NormalTRIG 150-199 mg/dL Borderline highTRIG 200-500 mg/dL High TRIG greater than 500 mg/dL Very highStandard traceable to the Center for Disease Conrtrol and Prevention (CDC) test method. Troponin I High Sensitivityo n 08-21-2022 Troponin I High Sensitivity 32159.9 pg/mL Off scale high 0.0-20.0 [facility] Comment on above: Result Comment: Crit ical Result : Called to and read back by: MARC BUSTILLOS at: 08/21/2022 06:30:29 by:[id number] PERFORMED BY: [place] [id number] PATHOLOGIST DROP CLIPPER DREW REAL M.D. Performed By: #### H S TROP #### [facility] [address] [place] [address] Troponin I High Sensitivity 78322.9 pg/mL Off scale high 0.0-20.0 [facility] Comment on above: Result Comment: Crit ical Result : Called to and read back by: RIDGE WATERS at: 08/21/2022 04:23:36 by:[id number] PERFORMED BY: [place] [address] PATHOLOGIST DROP CLIPPER DREW REAL M.D. Performed By: #### H S TROP #### [address] Troponin I High Sensitivity 60439.3 pg/mL Off scale high 0.0-20.0 [facility] Comment on above: Result Comment: Crit ical Result : Called to and read back by: SALLY BUSTILLOS at: 08/21/2022 00:52:26 by:[id number] PERFORMED BY: [place] [id number] PATHOLOGIST DROP CLIPPER DREW REAL M.D. Performed By: #### H S TROP #### [facility] [address] [place] [address] Troponin I.cardiac [Mass/vol ume] in Serum or Plasma by Detection limit <= 0.01 ng/Ordered By: Steven Zamora on 08-21-2022 Troponin I.cardiac DL <= 0.01 ng/mL [Mass/Vol] 12161.9 pg/mL 0.0-20.0 [facility] Comment on above: Critical Result : Ca lled to and read back by: MARC BUSTILLOS at: 08/21/2022 06:30:29 by:[id number] Activated partial thrombopla stin time (aPTT) in platelet poor plasma by coagulation aOrdered By: Cirilo Wise on 08-20-2022 aPTT Coag (PPP) [Time] 25.1 s 25.1-36.5 [facility] B-Type Natriuretic Peptideon 08-20-2022 Natriuretic peptide B (Bld) [Mass/Vol] 24.0 pg/mL Normal 5-100 [facility] Comment on above: Result Comment: PERF ORMED BY: [place] [address] PATHOLOGIST DROP CLIPPER DREW REAL M.D. Performed By: #### B LABEL DRIER, CK, CBC, HS TROP, BMP, PT, PTT #### [address] Basic Metabolic Panelon Anion gap [Moles/Vol] 14.1 mmol/L Normal 6.0-15.0 [facility] Comment on above: Performed By: #### B LABEL DRIER, CK, CBC, HS TROP, BMP, PT, PTT #### [address] Calcium [Mass/Vol] 9.4 mg/dL Normal 8.6-10.3 [facility] Comment on above: Performed By: #### B LABEL DRIER, CK, CBC, HS TROP, BMP, PT, PTT #### [address] Chloride [Moles/Vol] 105 mmol/L Normal 98-107 [facility] Comment on above: Performed By: #### B LABEL DRIER, CK, CBC, HS TROP, BMP, PT, PTT #### [address] CO2 [Moles/Vol] 24.3 mmol/L Normal 21.0-31.0 [facility] Comment on above: Performed By: #### B LABEL DRIER, CK, CBC, HS TROP, BMP, PT, PTT #### [facility] [address] Creatinine [Mass/Vol] 0.92 mg/dL Normal 0.70-1.30 [facility] Comment on above: Performed By: #### B LABEL DRIER, CK, CBC, HS TROP, BMP, PT, PTT #### [facility] [address] Creatinine Clr Calc Pharmacy 65.05 [facility] Comment on above: Result Comment: PERF ORMED BY: [place] [address] PATHOLOGIST DROP CLIPPER DREW REAL M.D. Performed By: #### B LABEL DRIER, CK, CBC, HS TROP, BMP, PT, PTT #### [address] GFR/1.73 sq M.predicted MDRD (S/P/Bld) [Vol rate/Area] mL/min/{1.73_m2} [facility] Comment on above: Performed By: #### B LABEL DRIER, CK, CBC, HS TROP, BMP, PT, PTT #### [facility] [address] Glucose [Mass/Vol] 172 mg/dL High 70-100 [facility] Comment on above: Result Comment: [facility] Glucose Reference Range is dependent on time and content of last meal. Glucose of more than 200 mg/dL in a nonstressed, ambulatory subject supports the diagnosis of Diabetes Mellitus. ADA recommended reference range Performed By: #### B LABEL DRIER, CK, CBC, HS TROP, BMP, PT, PTT #### [facility] [address] Potassium [Moles/Vol] 3.4 mmol/L Low 3.5-5.1 [facility] Comment on above: Performed By: #### B LABEL DRIER, CK, CBC, HS TROP, BMP, PT, PTT #### [facility] [address] Sodium [Moles/Vol] 140 mmol/L Normal 136-145 [facility] Comment on above: Performed By: #### B LABEL DRIER, CK, CBC, HS TROP, BMP, PT, PTT #### [facility] [address] Urea nitrogen [Mass/Vol] 15 mg/dL Normal 7-25 [facility] Comment on above: Performed By: #### B LABEL DRIER, CK, CBC, HS TROP, BMP, PT, PTT #### [facility] [address] Basophils Auto (Bld) [#/Vol] Ordered By: Cirilo Wise on 08-20-2022 Basophils (Bld) [#/Vol] 0.1 10*3/uL 0.0-0.2 [facility] Basophils/100 WBC Auto (Bld) Ordered By: Cirilo Wise on 08-20-2022 Basophils/100 WBC (Bld) 0.5 % . [facility] Calcium [Mass/volume] in Ser um or PlasmaOrdered By: Cirilo Wise on 08-20-2022 Calcium [Mass/Vol] 9.4 mg/dL 8.6-10.3 [facility] Carbon dioxide, total [Moles /volume] in Serum or PlasmaOrdered By: Cirilo Wise on 08-20-2022 CO2 [Moles/Vol] 24.3 mmol/L 21.0-31.0 [facility] Chloride [Moles/volume] in S jamin or PlasmaOrdered By: Cirilo Wise on 08-20-2022 Chloride [Moles/Vol] 105 mmol/L 98-107 [facility] Complete Blood Count Auto Di ffon 08-20-2022 Basophils (Bld) [#/Vol] 0.1 10*3/uL Normal 0.0-0.2 [facility] Comment on above: Result Comment: PERF ORMED BY: [facility] [address] [place] [address] PATHOLOGIST DROP CLIPPER DREW REAL M.D. Performed By: #### B LABEL DRIER, CK, CBC, HS TROP, BMP, PT, PTT #### [facility] [address] Basophils/100 WBC (Bld) 0.5 % Normal . [facility] Comment on above: Performed By: #### B LABEL DRIER, CK, CBC, HS TROP, BMP, PT, PTT #### [address] Eosinophils (Bld) [#/Vol] 0.1 10*3/uL Normal 0.0-0.45 [facility] Comment on above: Performed By: #### B LABEL DRIER, CK, CBC, HS TROP, BMP, PT, PTT #### [address] Eosinophils/100 WBC (Bld) 1.3 % Normal . [facility] Comment on above: Performed By: #### B LABEL DRIER, CK, CBC, HS TROP, BMP, PT, PTT #### [address] Erythrocyte distribution width (RBC) [Ratio] 13.6 % Normal 12.0-14.8 [facility] Comment on above: Performed By: #### B LABEL DRIER, CK, CBC, HS TROP, BMP, PT, PTT #### [address] Hematocrit (Bld) [Volume fraction] 44.0 % Normal 38.8-50.0 [facility] Comment on above: Performed By: #### B LABEL DRIER, CK, CBC, HS TROP, BMP, PT, PTT #### [address] Hemoglobin (Bld) [Mass/Vol] 15.1 g/dL Normal 13.0-17.0 [facility] Comment on above: Performed By: #### B LABEL DRIER, CK, CBC, HS TROP, BMP, PT, PTT #### [address] Lymphocytes (Bld) [#/Vol] 2.8 10*3/uL Normal 1.00-4.8 [facility] Comment on above: Performed By: #### B LABEL DRIER, CK, CBC, HS TROP, BMP, PT, PTT #### [address] Lymphocytes/100 WBC (Bld) 26.2 % Normal . [facility] Comment on above: Performed By: #### B LABEL DRIER, CK, CBC, HS TROP, BMP, PT, PTT #### [address] MCH (RBC) [Entitic mass] 32.1 pg Normal 27.5-35.2 [facility] Comment on above: Performed By: #### B LABEL DRIER, CK, CBC, HS TROP, BMP, PT, PTT #### [address] MCV (RBC) [Entitic vol] 93.4 fL Normal 83.5-101 F [facility] Comment on above: Performed By: #### B LABEL DRIER, CK, CBC, HS TROP, BMP, PT, PTT #### [address] Mean Corpuscular HGB Conc 34.4 g/dL Normal 32.5-35.6 [facility] Comment on above: Performed By: #### B LABEL DRIER, CK, CBC, HS TROP, BMP, PT, PTT #### [address] Monocytes (Bld) [#/Vol] 0.9 10*3/uL High 0.0-0.8 [facility] Comment on above: Performed By: #### B LABEL DRIER, CK, CBC, HS TROP, BMP, PT, PTT #### [address] [address] Monocytes/100 WBC (Bld) 16.35 % Normal 0.00-20.00 F [facility] Comment on above: Performed By: #### B LABEL DRIER, CK, CBC, HS TROP, BMP, PT, PTT #### [address] Monocytes/100 WBC (Bld) 7.9 % Normal . F [facility] Comment on above: Performed By: #### B LABEL DRIER, CK, CBC, HS TROP, BMP, PT, PTT #### [place] [id number] [place] Neutrophils (Bld) [#/Vol] 6.9 10*3/uL Normal 1.8-7.7 [facility] Comment on above: Performed By: #### B LABEL DRIER, CK, CBC, HS TROP, BMP, PT, PTT #### [address] Neutrophils/100 WBC (Bld) 64.1 % Normal . [facility] Comment on above: Performed By: #### B LABEL DRIER, CK, CBC, HS TROP, BMP, PT, PTT #### [address] NRBC% 0.1 /100{WBC} Normal 0-0.5 [facility] Comment on above: Performed By: #### B LABEL DRIER, CK, CBC, HS TROP, BMP, PT, PTT #### [address] Platelet mean volume (Bld) [Entitic vol] 9.7 fL Normal 6.6-10.1 [facility] Comment on above: Performed By: #### B LABEL DRIER, CK, CBC, HS TROP, BMP, PT, PTT #### [address] Platelets (Bld) [#/Vol] 215 10*3/uL Normal 150-450 [facility] Comment on above: Performed By: #### B LABEL DRIER, CK, CBC, HS TROP, BMP, PT, PTT #### [address] RBC (Bld) [#/Vol] 4.71 10*6/uL Normal 3.90-5.60 [facility] Comment on above: Performed By: #### B LABEL DRIER, CK, CBC, HS TROP, BMP, PT, PTT #### [address] WBC (Bld) [#/Vol] 10.7 10*3/uL High 4.1-10.5 [facility] Comment on above: Performed By: #### B LABEL DRIER, CK, CBC, HS TROP, BMP, PT, PTT #### [facility] [address] [place] [address] [place] Creatine Kinaseon 08-20-2022 CK [Catalytic activity/Vol] 115 U/L Normal [facility] Comment on above: Performed By: #### B LABEL DRIER, CK, CBC, HS TROP, BMP, PT, PTT #### [facility] [address] [place] [id number] [facility] Creatine kinase [Enzymatic a ctivity/volume] in Serum or PlasmaOrdered By: Cirilo Wise on 08-20-2022 CK [Catalytic activity/Vol] 115 U/L [facility] Creatinine [Mass/volume] in Serum or PlasmaOrdered By: Cirilo Wise on 08-20-2022 Creatinine [Mass/Vol] 0.92 mg/dL 0.70-1.30 [facility] ECG 12 lead ECGon 08-20-[address] [facility] [place] [address] [place] [address] Electrocardiograph Report Signed Patient: Olaf Briones MR#: [id number] 2 : 1945 Acct:[id number] Age/Sex: 77 / M ADM Date: 08/20/22 Loc: Room: [address] [place] [address] Type: REG [facility] Attending Dr: Steven Zamora DO Ordering Provider: [...] , age undetermined Inferior injury pattern ACUTE NM / STEMI Consider right ventricular involvement in acute inferior infarct Abnormal ECG No previous ECGs available Confirmed by SHANNON COCHRAN DO ([id number]) on 08/21/2022 2:06:14 AM Referred By: Electronically Signed By:SHANNON COCHRAN DO Transcribed By: MUS Signed By Shannon Cochran DO 08/21 0206 Normal [facility] Eosinophils Auto (Bld) [#/Vo l]Ordered By: Cirilo Wise on 08-20-2022 Eosinophils (Bld) [#/Vol] 0.1 10*3/uL 0.0-0.45 [facility] Eosinophils/100 WBC Auto (Bl d)Ordered By: Cirilo Wise on 08-20-2022 Eosinophils/100 WBC (Bld) 1.3 % . [facility] Erythrocyte distribution wid th Auto (RBC) [Ratio]Ordered By: Cirilo Wise on 08-20-2022 Erythrocyte distribution width (RBC) [Ratio] 13.6 % 12.0-14.8 [facility] Glucose [Mass/volume] in Ser um or PlasmaOrdered By: Cirilo Wise on 08-20-2022 Glucose [Mass/Vol] 172 mg/dL 70-100 [facility] Comment on above: ADA recommended refe rence rangeRandom Glucose Reference Range is dependent on time and content of last meal. Glucose of more than 200 mg/dL in a nonstressed, ambulatory subject supports the diagnosis of Diabetes Mellitus. Hematocrit Auto (Bld) [Volum e fraction]Ordered By: Cirilo Wise on 08-20-2022 Hematocrit (Bld) [Volume fraction] 44.0 % 38.8-50.0 [facility] Hemoglobin [Mass/volume] in BloodOrdered By: Cirilo Wise on 08-20-2022 Hemoglobin (Bld) [Mass/Vol] 15.1 g/dL 13.0-17.0 [facility] Laboratory - CoagulationOrde red By: Cirilo Wise on 08-20-2022 PT Coag (PPP) [Time] 11.4 s 9.0-12.9 [facility] Leukocytes [#/volume] correc betty for nucleated erythrocytes in Blood by Automated counOrdered By: Cirilo Wise on 08-20-2022 WBC corrected for nucl RBC Auto (Bld) [#/Vol] 10.7 10*3/uL 4.1-10.5 [facility] Lymphocytes Auto (Bld) [#/Vo l]Ordered By: Cirilo Wise on 08-20-2022 Lymphocytes (Bld) [#/Vol] 2.8 10*3/uL 1.00-4.8 [facility] Lymphocytes/100 WBC Auto (Bl d)Ordered By: Cirilo Wise on 08-20-2022 Lymphocytes/100 WBC (Bld) 26.2 % . [facility] MCH Auto (RBC) [Entitic mass ]Ordered By: Cirilo Wise on 08-20-2022 MCH (RBC) [Entitic mass] 32.1 pg 27.5-35.2 [facility] MCHC Auto (RBC) [Mass/Vol]Or dered By: Cirilo Wise on 08-20-2022 MCHC (RBC) [Mass/Vol] 34.4 g/dL 32.5-35.6 [facility] MCV Auto (RBC) [Entitic vol] Ordered By: Cirilo Wise on 08-20-2022 MCV (RBC) [Entitic vol] 93.4 fL 83.5-101 F [facility] Monocyte distribution width [Entitic volume] in Blood by AutomatedOrdered By: Cirilo Wise on 08-20-2022 Monocyte distribution width Auto (Bld) [Entitic vol] 16.35 % 0.00-20.00 [facility] Monocytes Auto (Bld) [#/Vol] Ordered By: Cirilo Wise on 08-20-2022 Monocytes (Bld) [#/Vol] 0.9 10*3/uL 0.0-0.8 [facility] Monocytes/100 WBC Auto (Bld) Ordered By: Cirilo Wise on 08-20-2022 Monocytes/100 WBC (Bld) 7.9 % . [facility] Natriuretic peptide B [Mass/ Vol]Ordered By: Cirilo Wise on 08-20-2022 Natriuretic peptide B (Bld) [Mass/Vol] 24.0 pg/mL 5-100 [facility] Neutrophils Auto (Bld) [#/Vo l]Ordered By: Cirilo Wise on 08-20-2022 Neutrophils (Bld) [#/Vol] 6.9 10*3/uL 1.8-7.7 [facility] Neutrophils/100 WBC Auto (Bl d)Ordered By: Cirilo Wise on 08-20-2022 Neutrophils/100 WBC (Bld) 64.1 % . [facility] No Panel Informationon 08-20 2529.3\S\2529.3 Critically high 0.0-20.0 MP-N orth [facility] 250 DO Work Phone: Comment on above: Critical Result : Ca lled to and read back by: ARY BUSTILLOS at: 08/20/2022 19:45:52 by:[id number] BY:[facility] [place], [place] [phone] MEDICAL DIRECTORDREW REAL M.D. No Panel InformationOrdered By: Cirilo Wise on 08-20-2022 Estimated GFR (CKD-EPI) > 60.0 mL/Min [facility] Creatinine Clearance (Chem 65.05 [facility] Nucleated erythrocytes [Pres ence] in Blood by Automated countOrdered By: Cirilo Wise on 08-20-2022 Nucleated RBC Auto Ql (Bld) 0.1 /100{WBC} 0-0.5 [facility] Partial Thromboplastin Timeo n 08-20-2022 aPTT Coag (Bld) [Time] 25.1 s Normal 25.1-36.5 [facility] Comment on above: Result Comment: PERF ORMED BY: [facility] [address] [place] [address] PATHOLOGIST DROP CLIPPER DREW REAL M.D. Performed By: #### B LABEL DRIER, CK, CBC, HS TROP, BMP, PT, PTT #### [facility] [address] [place] [id number] [facility] Platelet mean volume Auto (B ld) [Entitic vol]Ordered By: Cirilo Wise on 08-20-2022 Platelet mean volume (Bld) [Entitic vol] 9.7 fL 6.6-10.1 [facility] Platelet poor plasma interna tional normalized ratio (INR) by coagulation assay (relatOrdered By: Cirilo Wise on 08-20-2022 INR Coag (PPP) [Relative time] 1.0 {INR} [facility] Comment on above: INR Therapeutic Rang [...] 08-20-2022 Platelets (Bld) [#/Vol] 215 10*3/uL 150-450 [facility] Potassium [Moles/volume] in Serum or PlasmaOrdered By: Cirilo Wise on 08-20-2022 Potassium [Moles/Vol] 3.4 mmol/L 3.5-5.1 [facility] Prothrombin Time INRon 08-20 INR Coag (PPP) [Relative time] 1.0 {INR} Normal [facility] Comment on above: Result Comment: INR [...] 3 - 4.5 Performed By: #### B LABEL DRIER, CK, CBC, HS TROP, BMP, PT, PTT #### [facility] [address] PT Coag (PPP) [Time] 11.4 s Normal 9.0-12.9 [facility] Comment on above: Performed By: #### B LABEL DRIER, CK, CBC, HS TROP, BMP, PT, PTT #### [facility] [address] RBC Auto (Bld) [#/Vol]Ordere d By: Cirilo Wise on 08-20-2022 RBC (Bld) [#/Vol] 4.71 10*6/uL 3.90-5.60 [facility] Serum or plasma anion gap de terminationOrdered By: Cirilo Wise on 08-20-2022 Anion gap [Moles/Vol] 14.1 mmol/L 6.0-15.0 [facility] Sodium [Moles/volume] in Ser um or PlasmaOrdered By: Cirilo Wise on 08-20-2022 Sodium [Moles/Vol] 140 mmol/L 136-145 [facility] Troponin I High Sensitivityo n 08-20-2022 Troponin I High Sensitivity 9010.4 pg/mL Off scale high 0.0-20.0 [facility] Comment on above: Result Comment: Crit ical Result : Called to and read back by: ARY BUSTILLOS at: 08/20/2022 22:35:19 by:[id number] PERFORMED BY: [place] [address] PATHOLOGIST DROP CLIPPER DREW REAL M.D. Performed By: #### H S TROP #### [facility] [address] [place] [address] Troponin I High Sensitivity 2529.3 pg/mL Off scale high 0.0-20.0 [facility] Comment on above: Result Comment: Crit ical Result : Called to and read back by: ARY BUSTILLOS at: 08/20/2022 19:45:52 by:[id number] PERFORMED BY: [place] [phone] PATHOLOGIST DROP CLIPPER DREW REAL M.D. Performed By: #### H S TROP #### [facility] [address] [place] [address] Troponin I High Sensitivity 366.3 pg/mL Off scale high 0.0-20.0 [facility] Comment on above: Result Comment: Crit ical Result : Called to and read back by: SHANNON FERREIRA at: 08/20/2022 17:43:14 by:[id number] PERFORMED BY: [place] [address] PATHOLOGIST DROP CLIPPER DREW REAL M.D. Performed By: #### H S TROP #### [address] Troponin I.cardiac [Mass/vol ume] in Serum or Plasma by Detection limit <= 0.01 ng/Ordered By: Cirilo Wise on 08-20-2022 Troponin I.cardiac DL <= 0.01 ng/mL [Mass/Vol] 366.3 pg/mL 0.0-20.0 [facility] Comment on above: Critical Result : Ca lled to and read back by: SHANNON FERREIRA at: 08/20/2022 17:43:14 by:[id number] Urea nitrogen [Mass/volume] in Serum or PlasmaOrdered By: Cirilo Wise on 08-20-2022 Urea nitrogen [Mass/Vol] 15 mg/dL 09-11 [facility] WBC Auto (Bld) [#/Vol]Ordere d By: Cirilo Wise on 08-20-2022 WBC (Bld) [#/Vol] 10.7 10*3/uL 4.1-10.5 [facility] XR chest 1Von 08-20-[address] [facility] [place] [address] [place] [address] XRay Report Signed Patient: Olaf Briones MR#: [id number] 2 : 1945 Acct:[id number] Age/Sex: 77 / M ADM Date: 08/20/22 [...] Lucinda Monreal M.D.08/20/2022 4:50 PM Dictation Location: [place] [address] Transcribed By: [facility] 08/20/22 1650 Dictated By: Lucinda Monreal MD 08/20/22 1648 Signed By: 08/20/22 1650 [facility] Office Visit (Cardiology)on 06-01-2022 Follow-up visit Diagnoses/Problems [...] Weight Tips; Status:Complete - Retrospective Authorization; Done: [id number] Some eating tips that can help you lose weight.; Status:Complete - Retrospective Authorization; Done: [id number] SocHx: Former smoker Tobacco Use Screening; Status:Complete; Done: [id number] Patient Instructions Please bring all medicines, vitamins, [...] in 1 year. Lab as scheduled with ME Chief Complaint OLAF BRIONES is being seen [...] negative for complaint. Vitals Vital Signs Recorded: [id number] 10:52AMRecorded: 82Ukp2656 10:34AM [id number], LUE, Sitting [id number], LUE, Sitting Heart Rate72, L Radial Height5 ft 6 in Mgjoja065 lb BMI Vqwvxileiz53.73 kg/m2 BSA Calculated1.9 Tobacco Useb) No PHQ-2 #1. Over the last 2 weeks have you felt down, depressed (more content not included)... Normal [place] XR KUB 1 VIEWon 10-26-2021 XR KUB [...] by: AMNA BALDWIN Date: 2021-10-26 10:33 Normal [facility] Office Visit (Cardiology)on 09-18-2021 Follow-up visit [...] Former smoker Tobacco Use Screening; Status:Complete; Done: [id number] Tobacco Use Screening; Status:Complete; Done: [id number] Patient Instructions Please bring all medicines, vitamins, [...] Recorded: 18Sep2021 10:16AM Heart Rate64, L Radial Spctsyzl322, (more content not included)... Normal [place] Tobacco Screening.on 022 Fall risk assessment a) No falls within the last year [facility] [employer] 250 DO Work Phone: Tobacco use status [facility] b) No M [facility] [employer] 250 DO Work Phone: IO EKG Electrocardiogram- 12 Leadon 11-24-2020 IO EKG Electrocardiogram- 12 Lead See Scanned Document [facility] [employer] 250 DO Work Phone: Tobacco Screening.on 021 Fall risk assessment a) No falls within the last year [facility] [employer] eduardo 250 DO Work Phone: Tobacco use status [facility] b) No M [facility] [employer] 250 DO Work Phone: Vital Signs Date Time Vital Sign Value Performing Clinician Facility 06-26-2023 15:02-0400 Body height 172.7 cm Ashutosh Ling MD Work Phone: [facility] 06-26-2023 15:02-0400 Body mass index (BMI) [Ratio] 26.15 kg/m2 Ashutosh Ling MD Work Phone: [facility] 06-26-2023 15:02-0400 Body weight 78.02 kg Ashutosh Ling MD Work Phone: [facility] 06-26-2023 15:02-0400 Diastolic blood pressure 68 mm[Hg] Ashutosh Ling MD Work Phone: [facility] 06-26-2023 15:02-0400 Heart rate 60 /min Ashutosh Ling MD Work Phone: [facility] 06-26-2023 15:02-0400 Systolic blood pressure 120 mm[Hg] Ashutosh Ling MD Work Phone: [facility] 01-09-2023 15:38-0500 Body height 172.7 cm Ashutosh Ling MD Work Phone: [facility] 01-09-2023 15:38-0500 Body mass index (BMI) [Ratio] 26.76 kg/m2 Ashutosh Ling MD Work Phone: [facility] 01-09-2023 15:38-0500 Body weight 79.83 kg Ashutosh Ling MD Work Phone: [facility] 01-09-2023 15:38-0500 Diastolic blood pressure 76 mm[Hg] Ashutosh Ling MD Work Phone: [facility] 01-09-2023 15:38-0500 Heart rate 58 /min Ashutosh Ling MD Work Phone: [facility] 01-09-2023 15:38-0500 Systolic blood pressure 142 mm[Hg] Ashutosh Ling MD Work Phone: [facility] 10-29-2022 11:35-0400 Body height 172.72 cm Estellascottie Siddiqui Other [employer] Other 10-29-2022 11:35-0400 Body mass index (BMI) [Ratio] 26.64 kg/m2 Estella Chen Other [employer] Other 10-29-2022 11:35-0400 Body temperature 98.2 [degF] Estella Chen Other [employer] Other 10-29-2022 11:35-0400 Body weight 79.47 kg Estella Chen Other [employer] Other 10-29-2022 11:35-0400 Diastolic blood pressure 76 mm[Hg] Etsella Chen Other [employer] Other 10-29-2022 11:35-0400 Respiratory rate 18 /min Estella Chen Other [employer] Other 10-29-2022 11:35-0400 SaO2% (BldA) [Mass fraction] 98 % Estella Siddiqui Other [employer] Other 10-29-2022 11:35-0400 Systolic blood pressure 140 mm[Hg] Estella Siddiqui Other [facility] [employer] Other 09-05-2022 13:02-0400 Body height 167.64 cm Nahomi Hernandez Work Phone: [facility] 250 DO Work Phone: 09-05-2022 13:02-0400 Body mass index (BMI) [Ratio] 27.6 kg/m2 Nahomi Hernandez Work Phone: [facility] [employer] 250 DO Work Phone: 09-05-2022 13:02-0400 Body surface area Derived from formula 1.87 m2 Nahomi Hernandez Work Phone: [facility] [employer] 250 DO Work Phone: 09-05-2022 13:02-0400 Body weight 77.57 kg Nahomi Hernandez Work Phone: [facility] [employer] 250 DO Work Phone: 09-05-2022 13:02-0400 Diastolic blood pressure 54 mm[Hg] Nahomi Hernandez Work Phone: [facility] [employer] 250 DO Work Phone: 09-05-2022 13:02-0400 Heart rate 68 /min Nahomi Hernandez Work Phone: [facility] [employer] 250 DO Work Phone: 09-05-2022 13:02-0400 Systolic blood pressure 126 mm[Hg] Nahomi Hernandez Work Phone: [facility] [employer] 250 DO Work Phone: 08-27-2022 03:30-0400 Diastolic blood pressure 76 mm[Hg] [facility] 08-27-2022 03:30-0400 Heart rate 74 /min [facility] 08-27-2022 03:30-0400 Mean blood pressure 87 mm[Hg] [facility] 08-27-2022 03:30-0400 Respiratory rate 14 /min [facility] 08-27-2022 03:30-0400 SaO2% (BldA) [Mass fraction] 96 % [facility] 08-27-2022 03:30-0400 Systolic blood pressure 110 mm[Hg] [facility] 08-27-2022 03:00-0400 Diastolic blood pressure 80 mm[Hg] [facility] 08-27-2022 03:00-0400 Heart rate 80 /min [facility] 08-27-2022 03:00-0400 Mean blood pressure 97 mm[Hg] [facility] 08-27-2022 03:00-0400 Respiratory rate 15 /min [facility] 08-27-2022 02:30-0400 Diastolic blood pressure 73 mm[Hg] [facility] 08-27-2022 02:30-0400 Heart rate 96 /min [facility] 08-27-2022 02:30-0400 Mean blood pressure 92 mm[Hg] [facility] 08-27-2022 02:30-0400 Respiratory rate 20 /min [facility] 08-27-2022 02:30-0400 SaO2% (BldA) [Mass fraction] 98 % [facility] 08-27-2022 02:30-0400 Systolic blood pressure 130 mm[Hg] [facility] 08-26-2022 19:17-0400 Respiratory rate 18 /min [facility] 08-26-2022 18:11-0400 Respiratory rate 18 /min [facility] 08-26-2022 17:07-0400 Body temperature 97.7 [degF] [facility] 08-26-2022 17:07-0400 Heart rate 83 /min [facility] 08-26-2022 17:07-0400 Respiratory rate 18 /min [facility] 08-22-2022 15:50-0400 Body temperature 98.2 [degF] [facility] 08-22-2022 15:50-0400 Diastolic blood pressure 64 mm[Hg] [facility] 08-22-2022 15:50-0400 Heart rate 64 /min [facility] 08-22-2022 15:50-0400 Respiratory rate 18 /min [facility] 08-22-2022 15:50-0400 SaO2% (BldA) [Mass fraction] 99 % [facility] 08-22-2022 15:50-0400 Systolic blood pressure 124 mm[Hg] [facility] 08-22-2022 05:48-0400 Body weight 81 kg [facility] 08-21-2022 10:27-0400 70 1 Jame Musaight Work Phone: [facility] [employer] 250 DO Work Phone: Comment on above: [id number] 08-20-2022 18:32-0400 Body height 172.72 cm [facility] 08-20-2022 17:13-0400 Heart rate 42 /min [facility] 08-20-2022 16:38-0400 Diastolic blood pressure 60 mm[Hg] [facility] 08-20-2022 16:38-0400 Respiratory rate 18 /min [facility] 08-20-2022 16:38-0400 SaO2% (BldA) [Mass fraction] 98 % [facility] 08-20-2022 16:38-0400 Systolic blood pressure 123 mm[Hg] [facility] 08-20-2022 16:25-0400 Body height 172.72 cm [facility] 08-20-2022 16:25-0400 Body temperature 97.6 [degF] [facility] 08-20-2022 16:25-0400 Body weight 81.5 kg [facility] 10-27-2021 08:55-0400 Blood Pressure Location Shanna [facility] 10-27-2021 08:55-0400 Diastolic blood pressure 76 mm[Hg] Shanna IVORY [facility] 10-27-2021 08:55-0400 Heart rate 64 /min Shanna IVORY [facility] 10-27-2021 08:55-0400 Respiratory rate 16 /min Shanna IVORY [facility] 10-27-2021 08:55-0400 Systolic blood pressure 125 mm[Hg] Shannasuresh IVORY [facility] 03-07-2021 15:22-0500 Diastolic blood pressure 78 mm[Hg] Jame Barraza Work Phone: [facility] [employer] 250 DO Work Phone: 03-07-2021 15:22-0500 Systolic blood pressure 139 mm[Hg] Jame Barraza Work Phone: [facility] 250 DO Work Phone: 03-07-2021 14:47-0500 Body height 167.64 cm Jame Barraza Work Phone: [facility] [employer] 250 DO Work Phone: 03-07-2021 14:47-0500 Body mass index (BMI) [Ratio] 28.73 kg/m2 Jame Barraza Work Phone: [facility] [employer] 250 DO Work Phone: 03-07-2021 14:47-0500 Body surface area Derived from formula 1.9 m2 Jame Barraza Work Phone: [facility] [employer] 250 DO Work Phone: 03-07-2021 14:47-0500 Body weight 80.74 kg Jame Barraza Work Phone: [facility] 250 DO Work Phone: 03-07-2021 14:47-0500 Diastolic blood pressure 82 mm[Hg] Jame Barraza Work Phone: [facility] [employer] 250 DO Work Phone: 03-07-2021 14:47-0500 Heart rate 84 /min Jame Barraza Work Phone: [facility] [employer] 250 DO Work Phone: 03-07-2021 14:47-0500 Systolic blood pressure 172 mm[Hg] Jame Barraza Work Phone: [facility] [employer] 250 DO Work Phone: 11-24-2020 08:51-0400 Body height 167.64 cm Jame Barraza Work Phone: [facility] [employer] 250 DO Work Phone: 11-24-2020 08:51-0400 Body mass index (BMI) [Ratio] 28.08 kg/m2 Jame Barraza Work Phone: [facility] [employer] 250 DO Work Phone: 11-24-2020 08:51-0400 Body surface area Derived from formula 1.89 m2 Jame Barraza Work Phone: [facility] [employer] 250 DO Work Phone: 11-24-2020 08:51-0400 Body weight 78.93 kg Jame Barraza Work Phone: [facility] [employer] 250 DO Work Phone: 11-24-2020 08:51-0400 Diastolic blood pressure 82 mm[Hg] Jame Barraza Work Phone: [facility] 250 DO Work Phone: 11-24-2020 08:51-0400 Diastolic blood pressure 80 mm[Hg] Jame Barraza Work Phone: [facility] 250 DO Work Phone: 11-24-2020 08:51-0400 Heart rate 66 /min Jame Barraza Work Phone: [facility] [employer] 250 DO Work Phone: 11-24-2020 08:51-0400 Systolic blood pressure 136 mm[Hg] Jame Barraza Work Phone: [facility] 250 DO Work Phone: 11-24-2020 08:51-0400 Systolic blood pressure 138 mm[Hg] Jame Barraza Work Phone: [facility] [employer] 250 DO Work Phone: Encounters Encounter Date Encounter Type Care Provider Facility Start: 11-29-2023 ambulatory Shanna Yousif ty:LAYTON Schulte Start: 07-22-2023 End: 07-22-2023 ambulatory Alonzo Briscoe MD Facility: [facility] Start: 06-26-2023 End: 06-26[facility]2023 [facility] Start: 06-26-2023 End: 06-26-2023 Office outpatient visit 25 minutes Ashutosh Ling MD Work Phone: [facility] Comment on above: Essential hypertensi on (Primary Dx); Arteriosclerotic cardiovascular disease; Abnormal EKG; Mixed hyperlipidemia; Post PTCA; BMI 26.0-26.9,adult; Never smoked tobacco Start: 06-18-2023 End: 06-18-2023 ambulatory LUCINDA VICKERS Not Available Start: 05-21-2023 End: 05-21-2023 ambulatory DAV Martinez SUDHIR Not Available Start: 03-18-2023 End: 03-18-2023 ambulatory [facility] Start: 03-12-2023 End: 03-12-2023 ambulatory DAV Martinez SUDHIR Not Available Start: 03-04-2023 End: 03-04-2023 ambulatory Alonzo Briscoe MD Facility:[facility] Start: 02-04-2023 End: 02-04-2023 ambulatory Alonzo Briscoe MD Facility:[facility] Start: 01-09-2023 End: 01-09-2023 [facility] Start: 01-09-2023 End: 01-09-2023 Office outpatient visit 25 minutes Ahsutosh Ling MD Work Phone: [facility] Comment on above: Arteriosclerotic car diovascular disease (Primary Dx); Abnormal EKG; Mixed hyperlipidemia; Primary hypertension; Post PTCA; Essential hypertension; BMI 26.0-26.9,adult; Easy bruisability Start: 11-26-2022 End: 11-27-2022 ambulatory Shanna IVORY Facility:[facility] Start: 10-29-2022 End: 10-29-2022 ambulatory Estella Siddiqui Other [place] [employer] Other Start: 10-29-2022 Office outpatient ne w 10 minutes Estella Siddiqui [facility] [place] Start: 10-01-2022 Rx Renewal Nahomi Hernandez Work Phone: [facility] [address] DO Work Phone: Start: 09-14-2022 Rx Renewal Naohmi Hernandez Work Phone: [facility] [address] DO Work Phone: Start: 09-06-2022 Telephone encounter Justine Rainey Urology Comment on above: Patient Update Start: 09-05-2022 Office outpatient vi sit 25 minutes Nahomi Hernandez Work Phone: [facility] 250 DO Work Phone: Start: 09-05-2022 Patient encounter procedure Nahomi Elissa David Work Phone: [facility] 250 DO Work Phone: Start: 09-05-[address] Ashutosh Ling Facility:On license of [facility] Start: 09-05-2022 End: 09-06-2022 ambulatory Alexandre KOROMA Facility:[facility] Start: 09-05-2022 End: 09-05-2022 Patient encounter procedure Alexandre KOROMA [facility] Start: 09-04-2022 Telephone encounter Deborah Ibarra RN NOC Comment on above: Follow Up Phone Call (All Clear) Start: 08-27-2022 End: 08-31-2022 Evaluation and management of inpatient DAVID ANDREWS Facility:[facility] Start: 08-26-2022 End: 08-27-2022 Emergency department patient visit [facility] Facility:[facility] Start: 08-26-2022 End: 08-27-2022 Emergency department patient visit [facility] Start: 08-26-2022 End: 08-28-2022 ambulatory Alexandre KOROMA Facility:CD:[id number] Start: 08-24-2022 Chart Update Jame Barraza Work Phone: [facility] 250 DO Work Phone: Start: 08-22-[address] Jame Barraza Facility:[id number] Start: 08-21-[address] Jame Barraza Facility:[id number] Start: 08-20-2022 End: 08-22-2022 Evaluation and management of inpatient Steven Zamora Facility:[facility] Start: 08-20-2022 End: 08-22-2022 Evaluation and management of inpatient [facility] Work Phone: Start: 08-20-2022 Admission to [facility] Worker Work Phone: Start: 08-20-2022 ambulatory NON STAFF [facility] Work Phone: Start: 08-20-[address] Ben Zamora Facility:[id number] Start: 08-20-[address] Jame Barraza Facility:[id number] Start: 06-01-[address] Nahomi Hernandez Facility: Start: 05-08-2022 ambulatory Shanna IVORY Facility :[facility] Jal Start: 10-27-2021 End: 10-27-2021 Patient encounter procedure Shanna IVORY [facility] Start: 10-26-2021 End: 10-27-[address] SHANNA IVORY Facility:H1 Start: 05-04-2021 ambulatory DOMINGUEZ GUTIERREZ Faci lity:H1 Start: 03-07-2021 Office outpatient vi sit 25 minutes Jame Barraza Work Phone: [facility] 250 DO Work Phone: Start: 11-29-2020 Chart Update Jame Barraza Work Phone: [facility] 250 DO Work Phone: Start: 11-28-2020 Patient encounter procedure Jame Barraza Work Phone: [facility] [address] [place] Work Phone: Start: 11-24-2020 AUDIT Jame Barraza Work Phone: [facility] 250 DO Work Phone: Procedures Date Procedure Procedure Detail Performing Clinician Start: 06-26-2023 FOLLOW UP IN CARDIOLOGY ASHUTOSH LING Start: 08-30-2022 Antibody screen DAVID PEREZ Comment on above: Order Comment: Speci men Type: BLOOD SPECIMENOrdering Facility: [facility] Address: [address] [address] Performed By: #### T SCR ####CC MAIN BLOOD BANKCLIA [id number] [address] Start: 08-27-2022 Antibody screen DAVID RANULFO PEREZ Comment on above: Order Comment: Speci men Type: BLOOD SPECIMENOrdering Facility: [facility] Address: [address] [address] Performed By: #### T SCR ####CC MAIN BLOOD BANKCLIA [id number] [address] Start: 08-20-[address] [...] DTaP/Tdap/Td Vaccines (2 - Td or Tdap) [facility] Start: 03-27-2031 Urine microalbumin profile DTAP,TDAP,TD (2 - Td or Tdap) [facility] Start: 03-13-2024 End: 03-13-2024 Patient encounter procedure 03/13/2024 11:20 AM EST Office Visit [place] [id number] [facility] [address] [place] [id number] Ashutosh Ling MD [address] [facility] [address] [place] [address] [facility] Start: 06-26-2023 End: 06-26-2023 Patient encounter procedure 06/26/2023 3:10 PM EDT Office Visit [facility] [address] [facility] [address] [place] [phone] Ashutosh Ling MD [address] [facility] [address] [place] [address] [facility] Start: 06-07-2023 FUV, Provider: Ashutosh Ling, Status: Pen, Time: 11:20 AM FUV, Provider: Ashutosh Ling, Status: Pen, Time: 11:20 AM [facility] Work Phone: Start: 01-09-2023 FUV, Provider: Ashutosh Ling, Status: Pen, Time: 3:30 PM FUV, Provider: Ashutosh Ling, Status: Pen, Time: 3:30 PM [facility] DO Work Phone: Start: 10-19-2022 COVID-19 Vaccine ( season) COVID-19 Vaccine ( season) [facility] Start: 10-19-2022 Influenza vaccination INFLUENZA (#1) [facility] Start: 09-05-2022 FUV, Provider: Ashutosh Ling, Status: Pen, Time: 12:50 PM FUV, Provider: Ashutosh Ling, Status: Pen, Time: 12:50 PM [facility] DO Work Phone: Start: 08-22-2022 [facility] Start: 08-20-2022 Consultation [facility] Start: 08-20-2022 Referral to cardiac rehabilitation program [facility] Start: 08-20-2022 [facility] Start: 08-20-2022 End: 08-20-2022 Hospital admission [facility] Start: 02-18-2022 ADVANCE DIRECTIVE DISCUSSION ADVANCE DIRECTIVE DISCUSSION [facility] Start: 02-18-2022 DEPRESSION ASSESSMENT DEPRESSION ASSESSMENT [facility] Start: 08-30-2021 FUV, Provider: Ashutosh Ling, Status: Pen, Time: 2:30 PM FUV, Provider: Ashutosh Ling, Status: Pen, Time: 2:30 PM [facility] [address] DO Work Phone: Start: 04-03-2021 COVID-19 VACCINE (4 - Pfizer series) COVID-19 VACCINE (4 - Pfizer series) [facility] Start: 03-07-2021 FUV, Provider: Ashutosh Ling, Status: Pen, Time: 2:50 PM FUV, Provider: Ashutosh Ling, Status: Pen, Time: 2:50 PM [facility] DO Work Phone: Start: 11-28-2020 EVENT ELIEZER, Provider: FADUMO BENSON DUMPMAN 1,[id number], Status: Pen, Time: 10:30 AM EVENT ELIEZER, Provider: FADUMO BENSON DUMPMAN 1,[id number], Status: Pen, Time: 10:30 AM [facility] 250 DO Work Phone: Start: 2005 RSV patients and/or patients aged 60+ years (1 - 1-dose 60+ series) RSV patients and/or patients aged 60+ years (1 - 1-dose 60+ series) [facility] Start: 06-18-1995 SHINGRIX VACCINE (1 of 2) SHINGRIX VACCINE (1 of 2) [facility] Start: 06-18-1995 Zoster Vaccines (1 of 2) Zoster Vaccines (1 of 2) [facility] Start: 06-18-1963 ANNUAL PCP TEAM CHRONIC DISEASE VISIT ANNUAL PCP TEAM CHRONIC DISEASE VISIT [facility] Start: 06-18-1963 BP CONTROLLED (<130/80) BP CONTROLLED (<130/80) [facility] Start: 06-18-1963 Diabetes mellitus screening Diabetes Screening [facility] Start: 06-18-1963 Hepatitis B surface antibody level LDL CHOLESTEROL [facility] Start: 06-18-1963 HEPATITIS C SCREENING HEPATITIS C SCREENING [facility] Start: 06-18-1963 Hepatitis C screening Hepatitis C Screening [facility] Start: 06-18-1955 3 comp foot exam completed DIABETIC FOOT EXAM [facility] Start: 06-18-1955 Hepatitis B screening URINE ALBUMIN:CREATININE RATIO [facility] Start: 06-18-1955 Hepatitis C antibody, confirmatory test DILATED RETINAL EXAM [facility] Start: 1950 Hemoglobin A1c/Hemoglobin.total in Blood HBA1C [facility] Start: 1945 Lipid panel Lipid Panel [facility] Start: 1945 Medicare Annual Wellness Visit Medicare Annual Wellness Visit (AWV) [facility] Patient Education Coronary Angio plasty (DC) Coronary Stenting (DC) Angina (DC) Chest Pain (DC) Drug Eluting Stents [facility] Work Phone: Patient referral [facility] Work Phone: Immunizations Immunization Date Immunization Notes Care Provider Fa cility 02-18-2022 influenza nasal, unspecified formulation Deborah Ibarra RN [facility] 12-26-2021 Fluad Quadrivalent 0 .5 ML Intramuscular Prefilled Syringe Jame Barraza Work Phone: [facility] 12-26-2021 influenza, high dose seasonal, preservative-free Ashutosh Ling MD Work Phone: [facility] Work Phone: 03-27-2021 tetanus toxoid, redu shruti diphtheria toxoid, and acellular pertussis vaccine, adsorbed Deborah Ibarra RN [facility] 02-06-2021 Pfizer-BioNTech COVID-19 Vacc 30 MCG/0.3ML Intramuscular Suspension Jame Barraza Work Phone: [facility] 11-18-2020 influenza nasal, unspecified formulation Deborah Ibarra RN [facility] 11-10-2020 Fluad Quadrivalent 0 .5 ML Intramuscular Prefilled Syringe Jame Barraza Work Phone: [facility] 04-12-2020 Pfizer-BioNTech COVID-19 Vacc 30 MCG/0.3ML Intramuscular Suspension Jame Barraza Work Phone: [facility] 03-28-2020 COVID-19 original vaccine, age 12+ yr, monovalent (PFIZER-BIONTECH - PURPLE TOP) Deborah Ibarra RN [facility] 03-22-2020 Pfizer-BioNTech COVID-19 Vacc 30 MCG/0.3ML Intramuscular Suspension Jame Barraza Work Phone: [facility] 03-21-2020 SARS-CoV-2 (COVID-19 ) Ad26 vaccine, recombinant Shanna IVORY [facility] Comment on above: Result Comment: unab le to give exact dates 12-16-2019 influenza (HD-IIV4) vaccine, age 65+ yr, high dose, quadrivalent, PF (FLUZONE HIGH-DOSE) Deborah Ibarra RN [facility] 12-16-2018 AS03 adjuvant Deborah Ibarra RN [facility] 12-24-2017 AS03 adjuvant Deborah Ibarra RN [facility] 12-21-2016 influenza, high dose seasonal, preservative-free Deborah Ibarra RN [facility] 02-19-2016 pneumococcal polysaccharide vaccine, 23 valent Jame Barraza Work Phone: [facility] Comment on above: Series: 11-23-2015 influenza, high dose seasonal, preservative-free Jame Barraza Work Phone: [facility] 10-20-2015 influenza nasal, unspecified formulation Deborah Ibarra RN [facility] 11-06-2014 influenza nasal, unspecified formulation Deborah Ibarra RN [facility] 11-06-2014 pneumococcal conjuga te vaccine, 13 valent Deborah Ibarra RN [facility] Payers Date Payer Category Payer Medicare [id number] 2022 Private Health Insurance [facility] [id number] 2022 Self-pay 2022 Medicare [id number] 2022 Medicare [id number] 1959 Medicare [id number] [address] [facility] [id number] 1945 Unknown [id number] 2.840.1.193743.3.579.2.593 1945 Unknown [id number] 2.840.1.030677.3.579.2.593 1945 Unknown [id number] 2.840.1.698861.3.579.2.356 1945 Unknown [id number] 2.840.1.146196.3.579.2.356 1945 Unknown [id number] 2.840.1.702278.3.579.2.356 1945 Unknown [id number] 2.16840.1.461322.3.579.2.356 1945 Unknown [id number] 2.16840.1.077227.3.579.2.356 1945 Unknown [id number] 2.16840.1.353166.3.579.2.356 1945 Unknown [id number] 2.16840.1.862405.3.579.2.727 1945 Unknown [id number] 2.16.840.1.836918.3.579.2.727 1945 Unknown [id number] 2.16.840.1.598482.3.579.2.727 1945 Unknown [id number] 2.16.840.1.495590.3.579.2.727 1945 Unknown [id number] 2.16.840.1.276260.3.579.2.727 1945 Unknown [id number] 2.16.840.1.929598.3.579.2.1259 1945 Unknown [id number] 2.16.840.1.731570.3.579.2.1259 1945 Unknown [id number] 2.16.840.1.149178.3.579.2.1259 1945 Unknown [id number] 2.16.840.1.341442.3.579.2.1244 1945 Unknown [id number] 2.16.840.1.450113.3.579.2.1244 1945 Unknown [id number] 2.16.840.1.031376.3.579.2.196 1945 Unknown [id number] 2.16.840.1.904942.3.579.2.196 1945 Unknown [id number] 2.16.840.1.479270.3.579.2.196 1945 Unknown [id number] 2.16.840.1.312407.3.579.2.196 Private Health Insurance [facility] [id number] Unknown Unknown [id number] 2.16.840.1.895246.3.579.2.531 Social History Date Type Detail Facility Start: 01-08-2023 End: 01-09-2023 No alcohol use No alcohol use [facility] [address] DO Work Phone: Comment on above: 1 cup of coffee edelmira y; former cigar smoker; Start: 10-21-2020 End: 06-26-2023 Tobacco smoking status Never smoked tobacco (finding) [facility] Franca Start: 01-08-2023 End: 01-09-2023 Sex Assigned At Male [facility] Start: 1945 Sex Assigned At Male [facility] Tobacco smoking status [facility] Tobacco smoking consumption unknown [facility] Start: 1945 Sex Assigned At Not on file [facility] Start: 01-08-2023 Tobacco smoking status NHIS Ex-smoker [facility] Work Phone: History of tobacco use Current smoker [facility] Work Phone: History of tobacco use Cigar Smoker [facility] Work Phone: Start: 01-08-2023 End: 06-26-2023 Tobacco use and exposure Smokeless tobacco non-user [facility] Work Phone: Start: 01-09-2023 End: 06-26-2023 Alcohol intake Ex-drinker (finding) [facility] Work Phone: Start: 12-30-2022 End: 06-26-2023 Exposure to SARS-CoV-2 (event) Not sure [facility] Medical Equipment Procedure Code Equipment Code Equipment Origin al Text Equipment Identifier Dates CL STENT BISHOP FRONTIER 3.0 X 26 FDA Start: 08-20-2022 Femoral artery closure plug/patch, synthetic polymer ()[id number] FDA Start: 08-20-2022 Goals Date Patient Goal Desired Activity /State Functional Status Date Assessment Result Facility 08-26-2022 Functional Status N/A [facility] 08-22-2022 Functional status Patient at Baseline [facility] Work Phone: 10-27-2021 Functional Status N/A [facility] Jal Mental Status Date Assessment Result Facility 08-22-2022 Cognitive function Cognitive Sta tus Patient at Baseline [facility] Work Phone: Clinical Notes 10-27-2021 to [...] his lab work is done through the [facility] system Review of Systems Cardiovascular: Positive for [...] discussion and plan. documented in this encounter [facility] Work Phone: 06-26-2023 Instructions Mandy Munoz LPN [...] two times daily documented in this encounter [facility] Work Phone: 01-09-2023 History of Present illness [...] his lab work is done through the [facility] system Review of Systems Constitutional: Easy bruisability [...] 8. Easy bruisability documented in this encounter [facility] Work Phone: 01-09-2023 Instructions Travis Peter MA [...] of your visit. documented in this encounter [facility] Work Phone: 10-29-2022 Evaluation note Encounter Date Diagnosis Assessment Notes Oct, Impacted cerumen of both ears (ICD-10 - H61.23) Cerumen impaction home care material was printed Drink plenty fluids, get plenty of rest. Continue home medications as prescribed. Follow-up with your family physician for any further concerns [employer] Other 07-20-2023 Miscellaneous Notes* Telephone Encounter - [...] called in. The pharmacy is not at [facility] I will need to call them when its done. Dr Koroma is asking why he is on flomax? Please advise. [facility] Miscellaneous Notes* Telephone Encounter - Deborah Ibarra RN - 09/04/2022 12:51 PM EDT PATIENT INFORMATION Record ID: [id number] Patient Name: [facility]: [facility] Agency: Counts Include [facility] Beds At [facility] Attending: David Andrews Center: Urology INSTRUCTIONS SN to remind patient of appointment date, time, location All Clear All Clear SURVEY INFORMATION Medical/Nurse Graduate Assistant: Deborah Ibarra 1. Your discharge instructions are [...] symptoms? (Standard Question) No documented in this encounterUniversity Hospitals [facility]07-14-2023 NoteHNO ID: [id number] Author: Kathrin Dickerson RN Service: Care Management [...] Primary Care Physician Name/Phone: Jame Barraza MD [phone] Patient is medically stable for discharge, on RA, no dc needs. IMM provided on 08/30 by previous CM. Patients to discharge home. SIGNATURE: Kathrin Dickerson RN PATIENT NAME: Olaf Briones DATE: August 31, 2022 TIME: 9:40 AM CONTACT #: [phone] Note HNO ID: [id number] Author: Danyell Morris MD Service: Critical Care Author Type: Anesthesiologist Type: Progress Notes Filed: 08/31/2022 2:15 PM Note Text: SERVICE DATE: 08/31/2022 SERVICE TIME: 8:54 AM SURGICAL INTENSIVE CARE UNIT PROGRESS NOTE BRIEF HPI: Olaf Briones is a 77 year old male with PMHx of recent STEMI on 08/20/22 (s/p JUHI),HTN, HLD, DM, nephrolithiasis, transferred from [facility] for gross hematuria. He is now [...] Primary and SICU discussed patient transfer to [facility]. 08/30:no acute events. Hemodynamically stable. 08/31: No acute events. HDS. Patient is doing well and ready for transfer/discharge per Urology. Subjective INTERVAL EVENTS: Improved Objective MEDICATIONS: Current medications and allergies reviewed. Recommended/planned medication changes discussed in detail in the A/P section below. Please refer to [facility] for list of inpatient medications. VITAL [...] aspirin and ticagrelor Coronary artery disease involving ute coronary artery of ute heart Assessment: STEMI on 08/19/2022 s/p JUHI [...] Antiplatelet Medications (From admiss (more content not included)...[facility]07-14-2023 NoteHNO ID: [id number] Author: Prema Feliz MD Service: Urology Author Type: Resident Type: Progress Notes Filed: 08/31/2022 6:45 AM Note Text: [facility] UROLOGY PROGRESS NOTE Name: Olaf Briones Bed: H050 013/H050-13 Date: 08/31/2022 After Hours [facility] Urology Service Pager: [phone] ASSESSMENT AND PLAN Olaf Briones is a 77 year old male with PMHx of HTN, HLD, DM, recent STEMI (s/p JUHI, on Brillinta and ASA), nephrolithiasis s/p ESWL , BPH s/p TURP 2001, transferred from [facility] for gross hematuria. Currently with 18Fr 3-way catheter on CBI. Now 3 Days Post-Op s/p cystoscopy, clot evacuation, cystolitholapaxy, TURP. Admitted to SICU postoperatively due to pressor requirements and risk of hyponatremia due to length of TURP. 22Fr [address] hernandez placed introp, on traction and CBI. Transferred to [facility] 08/30. Interval: - AFVSS - Doing [...] order flomax for home. Active Problems Prior NM POA: Yes - placed on ASA 81, ticagrelor 90 mg BID Nephrolithiasis POA: Yes - Monitor HLD POA: Yes - Home atorva 80 mg DM POA: Yes - SSI HTN POA: Yes - amlodipine 5mg daily, carvedilol 6.25 BID, lisinopril 2.5 mg daily Prema Feliz MD PGY-2 Resident Physician Urology Pager: [phone] For weekend or after hours issues [place] [phone] SUBJECTIVE See above Objective OBJECTIVE Vital Signs BP 114/56 Pulse 61 Temp 36.9 ?C (98.4 ?F) (Oral) Resp 15 Ht 173 cm (5' 8.11 ) Wt 77.9 kg (171 lb 11.8 oz) SpO2 95% BMI 26.03 kg/m? Input and Output Intake/Output Summary (Last 24 hours) at 08/31/2022 0645 Last data filed at 08/31/2022 0600 Gross per 24 hour Intake 6174.7 ml Output 38120 ml Net -5325.3 ml Physical Exam GEN: [...] Feliz MD PGY-2 Resident Physician Urology Pager: [phone] For weekend or after hours issues please page the [place] [phone] [facility]07-13-2023 NoteHNO ID: [id number] Author: Danyell Morris MD Service: Critical Care Author Type: Anesthesiologist Type: Progress Notes Filed: 08/30/2022 3:36 PM Note Text: SERVICE DATE: 08/30/2022 SERVICE TIME: 3:25 PM SURGICAL INTENSIVE CARE UNIT PROGRESS NOTE BRIEF HPI: Olaf Briones is a 77 year old male with PMHx of recent STEMI on 08/20/22 (s/p JUHI),HTN, HLD, DM, nephrolithiasis, transferred from [facility] for gross hematuria. He is now [...] Primary and SICU discussed patient transfer to [facility]. 08/30:no acute events. Hemodynamically stable. Subjective INTERVAL EVENTS: hemodynamically stable. Objective MEDICATIONS: Current medications and allergies reviewed. Recommended/planned medication changes discussed in detail in the A/P section below. Please refer to [facility] for list of inpatient medications. VITAL SIGNS: [...] Is Patient Clinically Ready to Transfer to [facility] or SDU?: Yes, transfer to SDU or [facility] today Discharge Planning: To be determined [...] aspirin and ticagrelor Coronary artery disease involving ute coronary artery of ute heart Assessment: STEMI on 08/19/2022 s/p JUHI [...] Prophylaxis/Anticoagulants Anticoagulant AND Antiplatel (more content not included)...[facility]07-13-2023 NoteHNO ID: [id number] Author: Prema Felzi MD Service: Urology Author Type: Resident Type: Progress Notes Filed: 08/30/2022 7:12 AM Note Text: [facility] UROLOGY PROGRESS NOTE Name: Olaf Briones Bed: H050 013/H050-13 Date: 08/30/2022 After Hours [facility] Urology Service Pager: [phone] ASSESSMENT AND PLAN Olaf Briones is a 77 year old male with PMHx of HTN, HLD, DM, recent STEMI (s/p JUHI, on Brillinta and ASA), nephrolithiasis s/p ESWL , BPH s/p TURP 2001, transferred from [facility] for gross hematuria. Currently with 18Fr 3-way catheter on CBI. Now 2 Days Post-Op s/p cystoscopy, clot evacuation, cystolitholapaxy, TURP. Admitted to SICU postoperatively due to pressor requirements and risk of hyponatremia due to length of TURP. 22Fr [address] hernandez placed introp, on traction and CBI. Awaiting bed on [facility]. Interval: - Afebrile, SBPs 110s - [...] discharge today vs tomorrow Active Problems Prior NM POA: Yes - placed on ASA 81, ticagrelor 90 mg BID Nephrolithiasis POA: Yes - Monitor HLD POA: Yes - Home atorva 80 mg DM POA: Yes - SSI HTN POA: Yes - amlodipine 5mg daily, carvedilol 6.25 BID, lisinopril 2.5 mg daily Prema Feliz MD PGY-2 Resident Physician Urology Pager: [phone] For weekend or after hours issues [place] [phone] SUBJECTIVE See above Objective OBJECTIVE Vital Signs BP 111/56 Pulse 61 Temp 36.7 ?C (98.1 ?F) (Axillary) Resp 12 Ht 173 cm (5' 8.11 ) Wt 84 kg (185 lb 3 oz) SpO2 96% BMI 28.07 kg/m? Input and Output Intake/Output Summary (Last 24 hours) at 08/30/2022 0558 Last data filed at 08/30/2022 0500 Gross per 24 hour Intake 6400 ml Output 75304 ml Net -4150 ml Physical Exam GEN: [...] Feliz MD PGY-2 Resident Physician Urology Pager: [phone] For weekend or after hours issues please page the [place] [phone] NoteHNO ID: [id number] Author: Ary Frazier RN Service: Care Management [...] oxygen, or cpaps at home. Had recent NM in past. Cardiology on consult. No current [...] 29, 2022 TIME: 12:11 PM PAGER/CONTACT #: [phone] Hospital07-12-2023 NoteHNO ID: [id number] Author: Danyell Morris MD Service: Critical Care Author Type: Anesthesiologist Type: Progress Notes Filed: 08/29/2022 3:08 PM Note Text: SERVICE DATE: 08/29/2022 SERVICE TIME: 11:28 AM SURGICAL INTENSIVE CARE UNIT PROGRESS NOTE BRIEF HPI: Olaf Briones is a 77 year old male with PMHx of recent STEMI on 08/20/22 (s/p JUHI),HTN, HLD, DM, nephrolithiasis, transferred from [facility] for gross hematuria. He is now [...] Primary and SICU discussed patient transfer to [facility]. Subjective INTERVAL EVENTS: Improved Objective MEDICATIONS: Current medications and allergies reviewed. Recommended/planned medication changes discussed in detail in the A/P section below. Please refer to [facility] for list of inpatient medications. VITAL SIGNS: [...] Is Patient Clinically Ready to Transfer to [facility] or SDU?: Yes, transfer to SDU or [facility] today Discharge Planning: To be determined [...] aspirin and ticagrelor Coronary artery disease involving ute coronary artery of ute heart Assessment: STEMI on 08/19/2022 s/p JUHI [...] Urology AND SICU ok for transfer to [facility] Medication and Non-Pharmacologic VTE Prophylaxis/Anticoagulants Anticoagulant AND Antiplatelet Medica (more content not included)...[facility]-12[facility]23 NoteHNO ID: [id number] Author: David Andrews MD Service: Urology Author Type: Physician Type: Progress Notes Filed: 08/29/2022 7:09 PM Note Text: [facility] UROLOGY PROGRESS NOTE Name: Olaf Briones Bed: H050 013/H050-13 Date: 08/29/2022 After Hours [facility] Urology Service Pager: [phone] ASSESSMENT AND PLAN Olaf Briones is a 77 year old male with PMHx of HTN, HLD, DM, recent STEMI (s/p JUHI, on Brillinta and ASA), nephrolithiasis s/p ESWL remote, BPH s/p TURP 2001, transferred from [facility] for gross hematuria. Currently with 18Fr [...] EF 55% -Encourage IS -Continue telemetry on [facility] #GI - -Diet: Regular diet -Colace, [...] - routine #Disposition - pending course, to [facility] today if SICU agrees it is appropriate. Plan for discharge tomorrow. Active Problems Prior NM POA: Yes - placed on ASA 81, ticagrelor 90 mg BID Nephrolithiasis POA: Yes - Monitor HLD POA: Yes - Home atorva 80 mg DM POA: Yes - SSI HTN POA: Yes - amlodipine 5mg daily, carvedilol 6.25 BID, lisinopril 2.5 mg daily Prema Feliz MD PGY-2 Resident Physician Urology Pager: [phone] For weekend or after hours issues [place] [phone] CHIEF RESIDENT ADDENDUM POD#1 s/p cysto, TURP, [...] 08/29/2022 0700 Gross per 24 hour Intake 93887.5 ml Output 44234 ml Net 5853.5 ml Gen: No apparent [...] recs Gt Mcgowan MD Resident PGY-6 Urology Counts Include 234 Beds At [facility] Please page Dr. Feliz with any patient [...] 08/29/2022 0700 Gross per 24 hour Intake 27944.5 ml Output 64942 ml Net 5853.5 ml Physical Exam GEN: [...] Feliz MD PGY-2 Resident Physician Urology Pager: [phone] For weekend or after hours issues [place] [phone] [facility] STAFF PHYSICIAN NOTE OF PERSONAL INVOLVEMENT IN CARE I have reviewed the progress note obtained and documented by the resident (more content not included)...[facility]-11-2023 NoteHNO ID: [id number] Author: Molly Rosado APRN.LIFE ENRICHMENT MANAGER Service: ? Author Type: Nurse Business Support Professional Type: Anesthesia Procedure Notes Filed: 08/28/2022 7:27 PM Note Text: ANESTHESIOLOGY PROCEDURE NOTE PIV General Information Procedure Start Time/Medication Administration: 08/28/2022 7:26 PM Staffing LIFE ENRICHMENT MANAGER: Molly Rosado APRN.CRNA Preparation Sterility Preparation: hand [...] August 28, 2022 TIME: 7:26 PM CSN: [id number] Hospital07-11-2023 NoteHNO ID: [id number] Author: Molly Rosado APRN.CRNA Service: ? Author Type: Nurse Business Support Professional Type: Anesthesia Procedure Notes Filed: 08/28/2022 6:31 PM Note Text: ANESTHESIOLOGY PROCEDURE NOTE Airway General Information Procedure Start Time/Medication Administration: 08/28/2022 6:10 PM Patient location during procedure: OR Timeout Performed Pre-procedure: timeout performed Consent Obtained: Yes Patient identity confirmed: arm band and patient Staffing LIFE ENRICHMENT MANAGER: Molly Rosado APRN.CRNA Indications and Patient Condition [...] August 28, 2022 TIME: 6:31 PM CSN: [id number] Hospital07-11-2023 NoteHNO ID: [id number] Author: Prema Feliz MD Service: Urology Author Type: Resident Type: Progress Notes Filed: 08/28/2022 9:47 PM Note Text: [facility] UROLOGY PROGRESS NOTE Name: Olaf Briones Bed: H050 013/H050-13 Date: 08/28/2022 After Hours [facility] Service Pager: [phone] ASSESSMENT AND PLAN Olaf Briones is a 77 year old male with PMHx of HTN, HLD, DM, recent STEMI (s/p JUHI, on Brillinta and ASA), nephrolithiasis s/p ESWL , BPH s/p TURP 2001, transferred from [facility] for gross hematuria. Currently with 18Fr [...] pending course, in SICU Active Problems Prior NM POA: Yes - placed on ASA 81, ticagrelor 90 mg BID Nephrolithiasis POA: Yes - Monitor HLD POA: Yes - Home atorva 80 mg DM POA: Yes - SSI HTN POA: Yes - amlodipine 5mg daily, carvedilol 6.25 BID, lisinopril 2.5 mg daily Prema Feliz MD PGY-2 Resident Physician Urology Pager: [phone] For weekend or after hours issues [place] [phone] SUBJECTIVE See above Objective OBJECTIVE Vital Signs BP 112/52 Pulse 69 Temp 36.9 ?C (98.4 ?F) (Oral) Resp 18 Ht 173 cm (5' 8.11 ) Wt 75.5 kg (166 lb 7.2 oz) SpO2 97% BMI 25.23 kg/m? Input and Output Intake/Output Summary (Last 24 hours) at 08/28/20221955 Last data filed at 08/28/2022 1830 Gross per 24 hour Intake 35772 ml Output 01968 ml Net -1875 ml Physical Exam GEN: [...] Feliz MD PGY-2 Resident Physician Urology Pager: [phone] For weekend or after hours issues please page the [place] [phone] Hospital07-11-2023 NoteHNO ID: [id number] Author: Prema Feliz MD Service: Urology Author Type: Resident Type: Progress Notes Filed: 08/28/2022 8:02 AM Note Text: [facility] UROLOGY PROGRESS NOTE Name: Olaf Briones Bed: H050 013/H050-13 Date: 08/28/2022 After Hours [facility] Urology Service Pager: [phone] ASSESSMENT AND PLAN Olaf Briones is a 77 year old male with PMHx of HTN, HLD, DM, recent STEMI (s/p JUHI, on Brillinta and ASA), nephrolithiasis s/p ESWL remote, BPH s/p TURP 2001, transferred from [facility] for gross hematuria. Currently with 18Fr [...] for cysto, fulguration today Active Problems Prior NM POA: Yes - placed on ASA 81, ticagrelor 90 mg BID Nephrolithiasis POA: Yes - Monitor HLD POA: Yes - Home atorva 80 mg DM POA: Yes - SSI HTN POA: Yes - amlodipine 5mg daily, carvedilol 6.25 BID, lisinopril 2.5 mg daily Essential elements of above plan discussed with staff, Dr. Sharon Feliz MD PGY-2 Resident Physician Urology Pager: [phone] For weekend or after hours issues [place] [phone] SUBJECTIVE See above Objective OBJECTIVE Vital Signs BP 116/57 Pulse 69 Temp 36.5 ?C (97.7 ?F) (Oral) Resp 18 Ht 173 cm (5' 8.11 ) Wt 75.5 kg (166 lb 7.2 oz) SpO2 97% BMI 25.23 kg/m? Input and Output Intake/Output Summary (Last 24 hours) at 08/28/2022 07 Last data filed at 08/28/2022 0716 Gross per 24 hour Intake 63658.5 ml Output 03836 ml Net -89272.5 ml Physical Exam GEN: Alert, NAD EYES: Anicteric CV: Warm and well perfused LUNGS: Unlabored breathing on RA ABD: Soft, appropriately tender : Hernandez catheter present Labs Recent Labs 08/27/22 0710 WBC 16.24* HB 13.4 HCT 38.5* PLT 214 NA 140 K 4.3 CHLOR 105 CO2 22 BUN 17 CREAT 0.79 GLUC 197* Imaging Reviewed Prema Feliz MD PGY-2 Resident Physician Urology Pager: [phone] For weekend or after hours issues please page the on-call urology [place]ager at [phone] Hospital07-10-2023 NoteHNO ID: [id number] Author: Naomy Adkins MD Service: Urology Author [...] antispasmodics (ditropan, belladonna and opium suppositories, levsin, etc).[facility]07-09-2023 Evaluation + Plan noteExtracted from: Title:Urology [...] a stent placed last saturday at [facility]. sees dr ivory Thank for consultation on [...] BPH with urinary obstruction / SNOMED CT 7513877745 / Confirmed Kidney stone / SNOMED CT 683609823 / Confirmed Weak urinary stream / SNOMED CT 621766754 / Confirmed Microscopic hematuria / SNOMED CT 190407078 / Confirmed Diabetes / SNOMED CT 313647206 / Confirmed Hypertension / SNOMED CT 1515136437 / Confirmed Prostatitis / SNOMED CT 68977085 / Confirmed BPH without urinary obstruction / SNOMED CT 3042323116 / Confirmed Gross hematuria / SNOMED CT 824009322 / Confirmed Asymptomatic microscopic hematuria / SNOMED CT 8320261991 / Confirmed, Active Problems (10) Asymptomatic microscopic hematuria BPH with urinary obstruction BPH without urinary obstruction Diabetes Gross hematuria Hypertension Kidney stone Microscopic hematuria Prostatitis Weak urinary stream Histories Past Medical History: No active or resolved past medical history items have been selected or recorded. Family History: Hypertension Father Procedure history: Cystoscopy (91359163) on 08/18/2013 at 68 Years. Comments: 10/02/2018 16:11 EDT - Katie Rogers MA 11/08/200904/2006 TURP - Transurethral resection of prostate (813585600) in 2006 at 61 Years. Urodynamics (541630416) in 2006 at 61 Years. Transrectal biopsy of prostate using ultrasound (US) guidance (7878130214) in 2005 at 60 Years. ESWL - Extracorporeal shockwave lithotripsy for renal calculus (130221397) in 2000 at 55 Years. Comments: 10/02/2018 [...] Normal range of motion. Integumentary: Warm, Dry, Edna. Neurologic: Alert, Oriented, Normal sensory. Psychiatric: Cooperative, [...] % HI Lymph Auto 6.1 % LOW Barrow Auto 4.9 % Eos Auto 0.9 % Basophil Auto 0.5 % Neutro Absolute 13.5 E9/L HI Lymph Absolute 0.9 E9/L LOW Barrow Absolute 0.8 E9/L Eos Absolute 0.1 E9/L [...] and Plan Diagnosis Abnormal CT scan, bladder (KYY60-MU R93.41, Working, Medical). Anticoagulated by anticoagulation treatment (PLV55-LH Z79.01, Working, Medical). BPH with obstruction/lower urinary tract symptoms (HTE77-AV N40.1, Working, Medical). Gross hematuria (CSD84-HS R31.0, Discharge, Medical). S/P TURP (status post transurethral resection of prostate) (JYA85-ED Z90.79, Working, Medical). Urinary retention (YLS79-ZA R33.9, Discharge, Medical). Course: Worsening, Viewed CT [...] do not currently have available here at [facility] continuously. I discussed this extensively with [...] Date:11/02/2022 08:30:00 AM Scheduled Provider:Shanna IVORY MD Location:[facility] Appointment Type:URO Office Visit [facility]07-05-2023 Hospital Discharge instructions Additional Instructions DISCHARGE [...] doctor or pharmacist, without first calling the improvement director who implanted the stent. If you require [...] weight lifting, stair steppers, etc. until the improvement director approves these activities. Check with the improvement director on your first follow-up visit. CALL YOUR PHYSICIAN at [phone]: -If bleeding should occur from the catheter insertion site- apply pressure to the site then immediately call us. -Report any fever, redness, drainage, increased swelling, or firmness at the catheter insertion site. Some bruising or slight swelling may be present at the time of discharge. -Should arm or leg become cold, numb, white, or blue, contact the improvement director immediately. -IF you should experience episodes of [...] is recommended. Please call Central Scheduling at [phone] to schedule your appointment.] The attending improvement director or [facility] nurse clinician should provide you with specific instructions regarding activity, diet, medications, and further follow up for you. Follow the medication instructions provided on your discharge. If the dosages and instructions on this sheet differ from the dosage and instructions on the bottle, follow the instructions on the bottle. [facility] is not responsible for incorrect prescription information provided by the patient during their visit. Do not stop your medications without consulting your health care provider. Please take the list with you to your next doctor's appointment.[facility] Work Phone: 1(654) 436-340707-04-2023 Consult note Author Juanito Barney [facility] August 21, 2022 11:41am Note Date/Time August 21, 2022 11:41 am [facility] [address] [place], [place] [id number] Pulmonology Consult Note Signed Patient: Olaf Briones MR#: [id number] : 1945 Acct:[id number] Age/Sex: 77 / M Adm Date: 3 Loc: 4C Room: 0X5936-9 Type: REG SDC Attending Dr: Steven Zamora [...] ST elevation in the inferior lateral leads. Aniline Press Worker was activated, patient received PCI to RCA. [...] 08/21/22 10:00 08/21/22 10:00 08/21/22 10:00 Narrative: CATHODE RAY TUBE SALVAGE PROCESSOR: Alert and oriented x3. No focal deficits. [...] found to have inferior lateral ST elevation NM along with complete heart block. Aniline Press Worker was activated, patient received PCI to RCA. Patient is currently doing much better with no signs or symptoms of heart block,he is on room air. Optimizing cardiac meds as per cardiology. Glycemic control DVT prophylaxis Discussed with nursing staff Documented By: Juanito Barney MD 08/21/22 113 6 Signed By: <Electronically signed by Juanito Barney MD> 08/21/22 1141 [facility] Work Phone: 1(798) 233-417807-04-2023 Progress note Author Elpidio Andres [facility] August 21, 2022 8:11am Note Date/Time August 21, 2022 8:11a m [facility] [address] [place] [address] Cardiology Progress Note Signed Patient: Olaf Briones MR#: [id number] : 1945 Acct:[id number] Age/Sex: 77 / M Adm Date: 3 Loc: Room: [address] [place] [address] Type: REG SDC Attending Dr: Steven Zamora [...] % (Auto) 64.1 Lymph % (Auto) 26.2 Barrow % (Auto) 7.9 Eos % (Auto) 1.3 Baso % (Auto) 0.5 Nucleat RBC Rel Count 0.1 Neut # (Auto) 6.9 Lymph # (Auto) 2.8 Barrow # (Auto) 0.9 H Eos # (Auto) [...] MPV Neut % (Auto) Lymph % (Auto) Barrow % (Auto) Eos % (Auto) Baso % (Auto) Nucleat RBC Rel Count Neut # (Auto) Lymph # (Auto) Barrow # (Auto) Eos # (Auto) Baso # [...] MPV Neut % (Auto) Lymph % (Auto) Barrow % (Auto) Eos % (Auto) Baso % (Auto) Nucleat RBC Rel Count Neut # (Auto) Lymph # (Auto) Barrow # (Auto) Eos # (Auto) Baso # (Auto) Monocyte Dist Width PT INR APTT PHA Creatinine Clear Sodium Potassium Chloride Carbon Dioxide Anion Gap BUN Creatinine Est GFR (CKD-EPI) Glucose Calcium Total Creatine Kinase Troponin I High Sens 9010.4 H* 47321.3 H* 53600.9 H* B-Natriuretic Peptide Triglycerides Cholesterol LDL Cholesterol, Calc VLDL Cholesterol HDL Cholesterol Cholesterol/HDL Ratio 0708/21/22 08/21/22 05:30 05:30 05:30 Corrected WBC 13.6 H Uncorrected WBC Count 13.6 H RBC 4.66 Hgb 14.6 Hct 42.7 MCV 91.6 MCH 31.4 MCHC 34.3 RDW 13.5 Plt Count 171 MPV 9.5 Neut % (Auto) 85.4 Lymph % (Auto) 8.2 Barrow % (Auto) 6.1 Eos % (Auto) 0.1 Baso % (Auto) 0.2 Nucleat RBC Rel Count 0.0 Neut # (Auto) 11.7 H Lymph # (Auto) 1.1 Barrow # (Auto) 0.8 Eos # (Auto) 0.0 Baso # (Auto) 0.0 Monocyte Dist Width PT INR APTT PHA Creatinine Clear 74.81 Sodium 138 Potassium 3.8 Chloride 103 Carbon Dioxide 27.1 Anion Gap 11.7 BUN 12 Creatinine 0.71 Est GFR (CKD-EPI) > 60.0 Glucose 162 H Calcium 9.4 Total Creatine Kinase Troponin I High Sens 35915.9 H* B-Natriuretic Peptide Triglycerides 124 Cholesterol 132 [...] (2) Heart block: Assessment/Problem Details: Resolved with moravian of flow to the dominant right coronary [...] <Electronically signed by Elpidio Andres MD> 08/21/2211 [facility] Work Phone: 1(748) 999-667107-03-2023 History and physical note Author Steven Zamora [facility] August 20, 2022 6:29pm Note Date/Time August 20, 2022 6:24p m [facility] [address] [place] [address] Cardiology H&P Signed with Addenda Patient: Olaf Briones MR#: [id number] : 1945 Acct:[id number] Age/Sex: 77 / M Adm Date: 3 Loc: Room: [address] [place] [address] Type: REG SDC Attending Dr: Steven Zamora DO Copies to: NON STAFF Steven Zamora DO~ ADDENDUM1 Impression: Inferolateral STEMI with change in complete heart block Plan: Proceed with emergent cath and PCI. A total of 60 minutes nonprocedural critical care time were devoted to the ER staff, review of ECG, Aniline Press Worker staff, nursing staff, both patient and family [...] Discussed case with ER attending, reviewed ECGs; Aniline Press Worker team activated, half amp of atropine ordered in addition to routine upstream antiplatelet and Antithrombin therapies. Patient arrived at the Aniline Press Worker at 1659 underwent first balloon activation at [...] and no additional complaints, except as documented [facility] Medical History (Updated 08/20/22 @ 16:41 by [...] x10E3/uL Lymph # (Auto) 2.8 (1.00-4.8) x10E3/uL Barrow # (Auto) 0.9 H (0.0-0.8) x10E3/uL Eos [...] 25.1 Documented By: Steven Zamora DO 08/20/22 5770 Signed By: <Electronically signed by Steven Zamora DO> 08/20/22 1827 [facility] Work Phone: 1(693) 632-918407-03-2023 [facility] Procedure note [facility]07-03-2023 History general Narrative - Reported * Type Description Date Surgical History TURP 2022 Hospitalization History heart attack august 20 2022 Team-Match Other 09-09-2022 Hospital Discharge instructions Patient Education [...] urethra. Follow these instructions at home: Take uyyy-wda-srdfimj and prescription medicines only as told by [...] 02/04/2006 Document Revised: 12/30/2018 Document Reviewed: 03/11/2017 [employer] Patient Education 2020 setObject. Follow Up Care 10/21/2020 08:48:14 With:CACHORRO HAHN, Shanna Sánchez, URL Address: [address] [place] [address]- When: Unknown [facility] consult note Author Juanito Barney [facility] August 21, 2022 11:41am Note Date/Time August 21, 2022 11:41 am [facility] [address] [place] [address] Pulmonology Consult Note Signed Patient: Olaf Briones MR#: [id number] : 1945 Acct:[id number] Age/Sex: 77 / M Adm Date: 3 Loc: Room: [address] [place] [address] Type: REG SDC Attending Dr: Steven Zamora [...] ST elevation in the inferior lateral leads. Aniline Press Worker was activated, patient received PCI to RCA. [...] 08/21/22 10:00 08/21/22 10:00 08/21/22 10:00 Narrative: CATHODE RAY TUBE SALVAGE PROCESSOR: Alert and oriented x3. No focal deficits. [...] found to have inferior lateral ST elevation NM along with complete heart block. Aniline Press Worker was activated, patient received PCI to RCA. Patient is currently doing much better with no signs or symptoms of heart block,he is on room air. Optimizing cardiac meds as per cardiology. Glycemic control DVT prophylaxis Discussed with nursing staff Documented By: Juanito Barney MD 08/21/22 113 6 Signed By: <Electronically signed by Juanito Barney MD> 08/21/22 1141 [facility] Work Phone: Discharge summary Author Steven Zamora [facility] August 22, 2022 3:21pm Note Date/Time August 22, 2022 3:17p m [facility] [address] [place] [address] Discharge Summary Signed Patient: Olaf Briones MR#: [id number] : 1945 Acct:[id number] Age/Sex: 77 / M Adm Date: 3 Loc: Room: [address] [place] [address]: Steven Zamora DO Copies to: [...] % (Auto) 72.5, Lymph % (Auto) 15.9, Barrow % (Auto) 9.7, Eos % (Auto) 1.6, Baso % (Auto) 0.3, Nucleat RBC Rel Count 0.1, Neut # (Auto) 6.4, Lymph # (Auto) 1.4, Barrow # (Auto) 0.9 H, Eos # (Auto) [...] doctor or pharmacist, without first calling the improvement director who implanted the stent. If you require [...] weight lifting, stair steppers, etc. until the improvement director approves these activities. Check with the improvement director on your first follow-up visit. CALL YOUR PHYSICIAN at [phone]: -If bleeding should occur from the catheter insertion site- apply pressure to the site then immediately call us. -Report any fever, redness, drainage, increased swelling, or firmness at the catheter insertion site. Some bruising or slight swelling may be present at the time of discharge. -Should arm or leg become cold, numb, white, or blue, contact the improvement director immediately. -IF you should experience episodes of [...] is recommended. Please call Central Scheduling at [phone] to schedule your appointment.] The attending improvement director or [facility] nurse clinician should provide you with specific instructions regarding activity, diet, medications, and further follow up for you. Follow the medication instructions provided on your discharge. If the dosages and instructions on this sheet differ from the dosage and instructions on the bottle, follow the instructions on the bottle. [facility] is not responsible for incorrect prescription [...] signed by Steven Zamora DO> 08/22/22 1521 [facility] Work Phone: Evaluation + Plan note Future Appointments Appointment Date:11/02/2022 08:30:00 AM Scheduled Provider:Shanna IVORY MD Location:[facility] Appointment Type:URO Office Visit [facility] evaluation note* Diagnosis Onset Date Resolution Status Heart block acute ST elevation (STEMI) myocardial infarction acute Syncope acute [facility] Work Phone: Evaluation note* Diagnosis Arteriosclerotic cardiovascular disease- Primary Unspecified cardiovascular disease Abnormal EKG Nonspecific abnormal electrocardiogram (ECG) (EKG) Mixed hyperlipidemia Primary hypertension Unspecified essential hypertension Post PTCA Postsurgical percutaneous transluminal coronary angioplasty status Essential hypertension Unspecified essential hypertension BMI 26.0-26.9,adult Easy bruisability Other symptoms involving skin and integumentary tissues documented in this encounter [facility] Work Phone: Evaluation note* Diagnosis Essential hypertension- Primary Unspecified essential hypertension Arteriosclerotic cardiovascular disease Unspecified cardiovascular disease Abnormal EKG Nonspecific abnormal electrocardiogram (ECG) (EKG) Mixed hyperlipidemia Post PTCA Postsurgical percutaneous transluminal coronary angioplasty status BMI 26.0-26.9,adult Never smoked tobacco documented in this encounter [facility] Work Phone: History and physical note Author Steven Zamora [facility] August 20, 2022 6:29pm Note Date/Time August 20, 2022 6:24p m [facility] [address] [place] [address] Cardiology H&P Signed with Addenda Patient: Olaf Briones MR#: [id number] : 1945 Acct:[id number] Age/Sex: 77 / M Adm Date: 3 Loc: Room: [address] [place] [address] Type: REG SDC Attending Dr: Steven Zamora DO Copies to: NON STAFF Steven Zamora DO~ ADDENDUM1 Impression: Inferolateral STEMI with change in complete heart block Plan: Proceed with emergent cath and PCI. A total of 60 minutes nonprocedural critical care time were devoted to the ER staff, review of ECG, [employer] staff, nursing staff, both patient and family [...] Discussed case with ER attending, reviewed ECGs; [employer] team activated, half amp of atropine ordered in addition to routine upstream antiplatelet and Antithrombin therapies. Patient arrived at the [facility] at 1659 underwent first balloon activation at [...] and no additional complaints, except as documented [facility] Medical History (Updated 08/20/22 @ 16:41 by [...] x10E3/uL Lymph # (Auto) 2.8 (1.00-4.8) x10E3/uL Barrow # (Auto) 0.9 H (0.0-0.8) x10E3/uL Eos [...] <Electronically signed by Steven Zamora DO> 08/20/221826 [facility] Work Phone: History of Present illness [...] notify me with change in cardiac status -[facility] DO Work Phone: History of Present [...] notify me with change in cardiac status -[facility] DO Work Phone: History of Present [...] he developed hematuria ultimately went to the [facility] where he underwent TURP and removal [...] me change in cardiac status or symptoms [facility] 250 DO Work Phone: Hospital course Narrative No data available for this section [facility] Discharge instructions No data available for this section [facility] data available for this section [facility] progress note Author Elpidio Andres [facility] August 21, 2022 8:11am Note Date/Time August 21, 2022 8:11a m [facility] [address] [place] [address] Cardiology Progress Note Signed Patient: Olaf Briones MR#: [id number] : 1945 Acct:[id number] Age/Sex: 77 / M Adm Date: 3 Loc: Room: [address] [place] [address] Type: REG SDC Attending Dr: Steven Zamora [...] % (Auto) 64.1 Lymph % (Auto) 26.2 Barrow % (Auto) 7.9 Eos % (Auto) 1.3 Baso % (Auto) 0.5 Nucleat RBC Rel Count 0.1 Neut # (Auto) 6.9 Lymph # (Auto) 2.8 Barrow # (Auto) 0.9 H Eos # (Auto) [...] MPV Neut % (Auto) Lymph % (Auto) Barrow % (Auto) Eos % (Auto) Baso % (Auto) Nucleat RBC Rel Count Neut # (Auto) Lymph # (Auto) Barrow # (Auto) Eos # (Auto) Baso # [...] MPV Neut % (Auto) Lymph % (Auto) Barrow % (Auto) Eos % (Auto) Baso % (Auto) Nucleat RBC Rel Count Neut # (Auto) Lymph # (Auto) Barrow # (Auto) Eos # (Auto) Baso # (Auto) Monocyte Dist Width PT INR APTT PHA Creatinine Clear Sodium Potassium Chloride Carbon Dioxide Anion Gap BUN Creatinine Est GFR (CKD-EPI) Glucose Calcium Total Creatine Kinase Troponin I High Sens 9010.4 H* 14292.3 H* 42111.9 H* B-Natriuretic Peptide Triglycerides Cholesterol LDL Cholesterol, Calc VLDL Cholesterol HDL Cholesterol Cholesterol/HDL Ratio 08/21/22 08/21/22 08/21/22 05:30 05:30 05:30 Corrected WBC 13.6 H Uncorrected WBC Count 13.6 H RBC 4.66 Hgb 14.6 Hct 42.7 MCV 91.6 MCH 31.4 MCHC 34.3 RDW 13.5 Plt Count 171 MPV 9.5 Neut % (Auto) 85.4 Lymph % (Auto) 8.2 Barrow % (Auto) 6.1 Eos % (Auto) 0.1 Baso % (Auto) 0.2 Nucleat RBC Rel Count 0.0 Neut # (Auto) 11.7 H Lymph # (Auto) 1.1 Barrow # (Auto) 0.8 Eos # (Auto) 0.0 Baso # (Auto) 0.0 Monocyte Dist Width PT INR APTT PHA Creatinine Clear 74.81 Sodium 138 Potassium 3.8 Chloride 103 Carbon Dioxide 27.1 Anion Gap 11.7 BUN 12 Creatinine 0.71 Est GFR (CKD-EPI) > 60.0 Glucose 162 H Calcium 9.4 Total Creatine Kinase Troponin I High Sens 06743.9 H* B-Natriuretic Peptide Triglycerides 124 Cholesterol 132 [...] (2) Heart block: Assessment/Problem Details: Resolved with moravian of flow to the dominant right coronary [...] signed by Elpidio Andres MD> 08/21/22 0811 [facility] Work Phone: Reason for referral (narrative)* Consultation (Routine) - Authorized Specialty Diagnoses / Procedures Referred By Contac t Referred To Contact Cardiology Diagnoses Arteriosclerotic cardiovascular disease Abnormal EKG Mixed hyperlipidemia Procedures Follow Up In Cardiology Ashutosh Ling MD [address] [facility] [place] [address] Ashutosh Ling MD [address] [facility] [place] [address] Referral ID Status Reason Start Date Expiration Date V isits Requested Visits Authorized [id number] Authorized 01/09/2023 01/09/2024 1 1 [facility] Work Phone: Reason for referral (narrative)* Consultation (Routine) - Authorized Specialty Diagnoses / Procedures Referred By Mellissa shin Referred To Contact Cardiology Diagnoses Arteriosclerotic cardiovascular disease Procedures Follow Up In Cardiology Ashutosh Ling MD [address] [facility] 2, [address] [address] Ashutosh Ling MD [address] [place] [address] [address], [address] [address] Referral ID Status Reason Start Date Expiration Date V isits Requested Visits Authorized [id number] Authorized 06/26/2023 06/25/2024 1 1 [facility] Work Phone: Family History No Family History [...] Up In Cardiology Ashutosh Ling MD [address] [facility] [address], [address] [address] Ashutosh Ling MD [address] [facility], [address] [place] [address] Referral ID Status Reason Start Date Expiration Date V isits Requested Visits Authorized [id number] Authorized 01/09/2023 01/09/2024 1 1 Care Team [...] Steve Zamora , DO Attending Provider Active Graphics Artist Relationship Specialty Start Date End Date Jame Barraza MD [address], [place] [id number] PCP - General Family Medicine 08/31/22 Graphics Artist Relationship Specialty Start Date End Date Jame Barraza MD [address] [id number] PCP - General Family Medicine 08/31/22 Graphics Artist Relationship Specialty Start Date End Date Ashutosh Ling MD [address] [facility], [address] [place], [place] [id number] PCP - [employer] PCP 08/18/22 Dav Peguero MD [address] [facility] [address] [place] [address] PCP - General Family Medicine 01/09/23 Graphics Artist Relationship Specialty Start Date End Date Dav [...] DATE CREATED AUTHOR AUTHOR'S ORGANIZ ATION 09/01/2022 [facility] DATE CREATED AUTHOR AUTHOR'S ORGANIZ ATION 09/06/2022 [facility] DATE CREATED AUTHOR AUTHOR'S ORGANIZ ATION 09/07/2022 [facility] DATE CREATED AUTHOR AUTHOR'S ORGANIZ ATION 10/10/2022 [facility] DATE CREATED AUTHOR AUTHOR'S ORGANIZ ATION 11/27/2022 [facility] DATE CREATED AUTHOR AUTHOR'S ORGANIZ ATION 06/19/2023 [facility] EPIC DATE CREATED AUTHOR AUTHOR'S ORGANIZ ATION 06/28/2023 [facility] DATE CREATED AUTHOR AUTHOR'S ORGANIZ ATION 08/01/2023 [facility] Goals (unrecognized section and content) Goals may be documented in a n alternate section Source Comments (unrecognize d section and content) In the event this informatio n is protected by the Federal Confidentiality of Alcohol and Drug Abuse Patient Records regulations: The Federal rules restrict any use of the information to criminally investigate or prosecute any alcohol or drug abuse patient.[facility] the event this information is protected by the Federal Confidentiality of Alcohol and Drug Abuse Patient Records regulations: The Federal rules restrict any use of the information to criminally investigate or prosecute any alcohol or drug abuse patient.[facility] FOR RECORDS PERTAINING TO PATIENTS WHO ARE [...] THE PRIMARY CLINICAL RECORDS. [facility] [facility]. provides no warranty or guarantee of the accuracy or completeness of information in this document.
--- NOTE | 2023-10-31 10:10 | PM.CN ---
Consult Note: HPI Data of Consult Patient: known to practice within the last 3 years Requesting Physician: Ria Kirby NP Primary Care Provider: DAV PEGUERO Consult Narrative Reason for consult: chronic back pain with NC Narrative: Thomas Thorne a pleasant 78 year old male presents for evaluation and management of low back and bilateral leg pain. Today rating pain 2/10 in low back and bilateral thighs, increasing to 4/10 with standing walking transitioning and activity, improved with sitting and rest, Patient has benefitted from back bracing and PRN tylenol. Continuing to follow with cardiology post AL, now on plavix. Patient reports moderate benefit from previous TFESIs, greater than 50% improvement for 3 months but pain has returned to baseline. cc:: CC: Ria Kirby NP Review of Systems ROS Status of ROS 10 or more systems reviewed and unremarkable except as noted in history and below Musculoskeletal Reports: back pain and extremity pain PFSH PFSH Medical History Enlarged prostate ?N40.0 - Benign prostatic hyperplasia without lower urinary tract symptoms (ICD-10) Low back pain ?M54.50 - Low back pain, unspecified (ICD-10) Hypertension ?I10 - Essential (primary) hypertension (ICD-10) Kidney stone Surgical History History of transurethral resection of prostate ?Z98.890 - Other specified postprocedural states (ICD-10) ?Z90.79 - Acquired absence of other genital organ(s) (ICD-10) Meds Home Medications and Allergies Home Medications ?Medication ?Instructions ?Recorded ?Confirmed ?Type allopurinol 300 mg tablet 300 mg PO DAILY 01/23/23 07/22/23 History amlodipine 5 mg tablet 5 mg PO DAILY 01/23/23 07/22/23 History aspirin 81 mg tablet,delayed 81 mg PO DAILY 01/23/23 07/22/23 History release atorvastatin 80 mg tablet 40 mg PO DAILY 01/23/23 07/22/23 History carvedilol 6.25 mg tablet 6.25 mg PO Q12H 01/23/23 07/22/23 History lisinopril 2.5 mg tablet 2.5 mg PO DAILY 01/23/23 07/22/23 History nitroglycerin 0.4 mg sublingual 0.4 mg sublingual Q5M PRN chest 01/23/23 07/22/23 History tablet pain ticagrelor 90 mg tablet (Brilinta) 90 mg PO Q12H 01/23/23 07/22/23 History Allergies Allergy/AdvReac Type Severity Reaction Status Date / Time amoxicillin Allergy Unknown Verified 07/22/23 10:03 albuterol Allergy Verified 07/22/23 10:03 hydrochlorothiazide Allergy Verified 07/22/23 10:03 Exam Constitutional Documenting provider has reviewed patient's vital signs: yes Common normals: no apparent distress, oriented x3, healthy appearing, alert and well nourished General appearance: cooperative HENMT Common normals: normocephalic, hearing grossly normal bilaterally and moist oral mucous membranes Head and scalp: normocephalic Eye Common normals: PERRL Pupil: PERRL Neck & C-Spine Common normals: full ROM General: normal visual inspection Chest Common normals: inspection of chest normal Respiratory Common normals: normal respiratory effort, no retractions and no use of accessory muscles Back & Pelvis Lumbar spine/lower back: normal to inspection, lumbar ROM normal and straight leg raise negative bilaterally Other: strength 5/5 in BLE sensation intact BLE intermittent heaviness weakness and radicular pain with standing and walking, improved with forward flexion and rest Extremity Common normals: normal to inspection and full ROM Neuro Common normals: oriented x3, CN's II-XII intact bilaterally, moves all extremities, no focal motor deficits, no sensory deficits noted and deep tendon reflexes 2+ bilaterally Sensorium/orientation: alert Motor exam: strength 5/5 throughout and no movement abnormalities noted Psych Common normals: mental status grossly normal, thought process normal, cooperative, affect normal, speech normal and activity/motor behavior normal Speech: normal speech Thought process: normal thought process Results Additional Findings Additional findings: If on a controlled substance or opioids, I have checked an [place]AR[place] report on this patient and there are no aberrancies noted in the prescribing history.??If on a controlled substance or opioid a drug screen was completed and reviewed within the last year, and if there has not been a drug screen completed we ordered one today to monitor higher risk, state monitored pain medication use. As part of providing excellent, safe, comprehensive care, the following was completed at our patient's visit: 1. A medication reconciliation and review to ensure accurate knowledge of current/active medications, including asking our patients to inform us about any [id number] medications or herbal remedies/nutritional supplements/alternative remedies. 2. A review to specifically ensure our patients have had annual screening for screening for depression, screening for tobacco use, and screening for unhealthy alcohol use. For concerning screenings had a discussion with the patient, provided patient education, and recommended follow-up with primary care provider when appropriate. If patient noted with a risk of falling, they received education on strength, gait, and balance training to prevent future risk of falling. 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 patient would like to further think about his options. f/u as needed
== END 2023-10-31 09:41 | disposition home or self-care (01) ==
PROVIDERS: PCP Family Medicine; Visit Provider Nurse Practitioner
DX: M48.062 Spinal stenosis, lumbar region with neurogenic claudication (principal); M62.838 Other muscle spasm; M47.816 Spondylosis without myelopathy or radiculopathy, lumbar region; M46.1 Sacroiliitis, not elsewhere classified
CPT/HCPCS: G0463

== ENCOUNTER 2023-11-28 08:10 | Outpatient (OUT) | payer MEDICARE, SELFPAY ==
--- OUTSIDE RECORDS SUMMARY | 2023-11-28 08:28 | XMS_ITS | CCD ---
Author Organization [facility] Inform ion [facility] Care Team Providers Care Blending Kettle Tender Name Role Phone Jame Barraza Unavailable Unavailable Unavailable JAME BARRAZA Primary Care Physician [phone] DR SHANNA IVORY Attending Unavailable CHRIS, DR JAME Bowers Primary Care Unavailable DR SHANNA IVORY Admitting Unavailable DR SHANNA IVORY Consulting Unavailable NICOLASA, DR AMNA Saucedo Consulting Unavailable DOMINGUEZ GUTIERREZ Admitting Unavailable DOMINGUEZ GUTIERREZ Attending Unavailable DR JAME BARRAZA Primary Care Unavailable NON STAFF Primary Care Provider UnavailDO Shannon Perez Emergency Provider [phone] DO Steven Zamora Attending Provider NON STAFF Primary Care Provider Unavailsigrid Cochran DO Shannon Emergency Provider DO Steven Zamora Admit Provider DO Steven Zamora Attending Provider [phone] MD Juanito Barney Other Provider JAME BARRAZA [...] Ashutosh Ling MD Unavailable Sudhir HAHN, Dav [facility] Primary Care Provider [phone] DAV PEGUERO Attending Unavailable SUDHIR, DAV Martinez Attending Unavailable HEMMERLUCINDA Attending Unavailable Dav Peguero MD [facility] Primary Care Provider ASHUTOSH LING Attending Unavailable SUDHIRDAV Morelos Primary Care Unavailable ASHUTOSH LING Attending Unavailable ASHUTOSH LING Referring Unavailable [facility]IR [facility] Unavailable Girenetta HAHN, Andmarc Bobo Attending Unavailable Gibobitis , Andrius Jihan Attending Unavailable Gieditis , Andrius Vytcherelle Attending Unavailable Gieditis , Andrius Jihan Attending Unavailable Allergies Allergy Classification Reported Allergen(s) Allergy Type Date of Onset Reaction(s) Facility (20 sources) Albuterol; Translations: [albuterol] Drug Allergy 11-12-19 12 Headache (finding), Other: See Comments, Headache [facility] (18 sources) hydroCHLOROthiazide; Translations: [hydroCHLOROthiazide TABS] Drug Allergy 08-21-19 23 Eruption of skin (disorder), Rash [facility] (4 sources) Sulfamethoxazole / Trimethoprim; Translations: [sulfamethoxazole-trim ethoprim] Drug Allergy Unknown (qualifier value) [facility] (1 source) Albuterol Drug Allergy [facility] (6 sources) hydroCHLOROthiazide; Translations: [HYDROCHLOROTHIAZIDE] Drug Allergy 08-21-19 Rash [facility] (2 sources) Adhesive Tape; Translations: [adhesive tape] Propensity to adverse reactions 08-22-19 Rash [facility] (1 source) Albuterol Drug Allergy 08-21-19 [facility] (1 source) hydroCHLOROthiazide Drug Allergy 08-21-19 [facility] Medications Current Medications Medication Drug [...] 3:22pm Start: 10-21-2020 take 1 tablet by [facility] once daily metoprolol 25 mg ER [...] Coronary arteriosclerosis; Translations: [Atherosclerotic heart disease of belkofski coronary artery without angina pectoris] Onset: 08-27-2022 [...] Urnls Dip Stick Auto w/o Microscopy POC 41462 XR Abdomen 1 View -- Results Pending [...] Shanna IVORY MD Where: [facility] Pathology Noteon 11-26-2022 Pathology Note [id number]#1.00TIFF [facility] Patient Educationon 11-27-19 Patient Education [...] ? 8 oz (237 mL) of milk, vcmmcfr-laycdfdmnqaj-uohmy milk, and calcium-fortifiedfruit juice. Calcium-fortified means that [...] Spinach (cooked), rhubarb, beets, sweet potatoes, and Palauan chard. ? Peanuts. ? Potato chips, turks and caicos islander fries, and baked potatoes with skin on. ? Nuts and nut products. ? Chocolate. ? If you regularly take a diuretic medicine, make sure to eat at least 1 or 2 servings of fruits or vegetables that are high in potassium each day. These include: ? Avocado. ? Banana. ? [place], prune, carrot, or tomato juice. ? Baked [...] fish oil, or vitamin B6. ? Take igql-zhr-eaqzbvj and prescription medicines only as told by your health care provider. These include supplements. What foods should I limit? Limit your in (more content not included)... Normal [facility] [id number]#1.00TIFF Normal [facility] Urology Office/Clinic Noteon 11-26-2022 Urology Office/Clinic Note Chief Complaint 1yr KUB HPI Staff Pt is here today for 1yr KUB due to BPH, Kidney Stone & Microscopic Hematuria. *Allopurinol 300mg qd therapy. At that time PRW discussed DC'ing PSA checks due to pt's advancing age. Since then pt has gone to [facility] ER 08/26/22 CC: Lower Pelvic Pain & Blood clots in urine PVR at that time 500ml Catheter Placed C&S 600 cfu/ml Staphylococcus species coagulase negative Sandy not indicative of a Cath specimen CTU 08/26/22 Dr Koroma did see pt, due to recent cardiac cath & heart attack, pt was transferred to [facility]. There pt underwent Cysto/Clot Evacuation/Litholapaxy & TURP [...] age. Since then pt has gone to [facility] ER 08/26/22 CC: Lower Pelvic Pain & Blood clots in urine PVR at that time 500ml Catheter Placed C&S 600 cfu/ml Staphylococcus species coagulase negative Sandy not indicative of a Cath specimen CTU 08/26/22 Dr Koroma did see pt, due to recent cardiac cath & heart attack, pt was transferred to [facility]. There pt underwent Cysto/Clot Evacuation/Litholapaxy & TURP [...] stones. Stone Analysis done 08/28/22 - CaOx [place] 50%, CaOx [place] 40%, and minor components [...] [facility] [address], [place] [address]- Additional Instructions: w/KUB Patient Education Dietary Guidelines [...] trigone, bladder n (more content not included)... [facility] Comment on above: Result Comment: Elec tronically Signed By: CACHORRO HAHN, Shanna Spicer.br\Date and Time Signed: 11/26/22 14:10 EDT\.br\Electronically Co-Signed By: Sheila Tripathi.br\Date and Time Co-Signed: 11/26/22 14:08 EDT Physician Orderon 11-20-2022 Physician Order [id number]#1.00CD:127 [facility] Auth for Release of Medical Recordson 09-27-2022 Auth for Release of Medical Records [id number]#1.00CD:127 [facility] Consultation Noteon 09-20-19 Consultation Note [id number]#1.00CD:127 [facility] Consultation Note [id number]#1.00CD:127 [facility] Consultation Note [id number]#1.00CD:127 [facility] Consultation Note [id number]#1.00CD:127 [facility] Lab Reportson 09-19-2022 Lab Reports [id number]#1.00CD:127 [facility] Lab Reports [id number]#1.00CD:127 [facility] Lab Reports [id number]#1.00CD:127 [facility] Lab Reports [id number]#1.00CD:127 Normal [facility] Operative Reporton Operative Report [id number]#1.00CD:127 Normal [facility] Operative Report [id number]#1.00CD:127 Normal [facility] CNPNon 09-06-2022 CNPN Telephone (UROLMN) -- OLAF BRIONES ([id number]) 1945 M Date Time Provider Department 09/06/22 JUSTINE WILSON During your visit today, we recorded the following information about you: Justine Wilson RN 09/06/2022 10:31 AM Signed ----- Message from Jocelin Gr sent at 09/06/2022 8:23 AM EDT ----- Regarding: medciation script needed Contact: Pt is calling in to see if the flomax can be called in. The pharmacy is not at [facility]. I will need to call them [...] Hematuria [R31.9] 08/27/2022 Coronary artery disease involving belkofski hinton*08/27/2022 Adverse reaction to antiplatelet agent [T45.7X5*08/27/2022 Myocardial infarction (HCC) [I21.9] 08/27/2022 Essential (primary) hypertension [I10] 08/27/2022 Type 2 diabetes mellitus without complication, *08/27/2022 Leukocytosis [D72.829] 08/27/2022 Malnutrition of mild degree (HCC) [E44.1] 08/29/2022 Encounter Status:Closed by JUSTINE WILSON RN on 09/06/22 Normal [facility] Ambulatory Visit Summaryon 0 09-05-2022 Ambulatory [...] Shanna Sánchez Where: [facility] Office Visit (Cardiology)on 09-05-2022 Follow-up visit [...] Status: Hold For - Scheduling Requested for: [id number] Agreement : I agree to have my patient participate in the phase III outpatient cardiac rehabilitation program after completion of the phase II program. Consent : I consent to have my patient participate in the cardiac rehabilitation program. I will continue regular medical care of my patient throughout his/her participation in the program. Individualized Treatment Plan and Exercise Prescription : Request the Ginning Operator to share responsibility for developing an [...] in adult Healthy Weight Tips; Status:Complete; Done: [id number] Some eating tips that can help you lose weight.; Status:Complete; Done: 33Cph2726 SocHx: Former smoker Tobacco Use Screening; Status:Complete; Done: 28Xnp3724 Patient Instructions Please bring all medicines, vitamins, and herbal supplements with you when you come to the office. Prescriptions will not be filled unless you are compliant with your follow up appointments or have a follow up appointment scheduled as per instruction of your physician. Refills should be requested at the time of your visit. Follow up in 4 months [facility] cardiac rehab -one month History of [...] he developed hematuria ultimately went to the [facility] where he underwent TURP and [...] 1 TABLET (more content not included)... Normal [employer] Tobacco Screening.on 023 Adult depression screening assessment No [facility] [employer] DO Work Phone: Fall risk assessment a) No falls within the last year [facility] [employer] DO Work Phone: Tobacco use status CPHS b) No [facility] [employer] DO Work Phone: CNPNon 09-04-2022 CNPN Telephone (PODCCP) -- OLAF BRIONES ([id number]) 1945 M Date Time Provider Department 09/04/22 DEBORAH IBARRA PODCCP During your visit today, we recorded the following information about you: Deborah Ibarra RN 09/04/2022 12:52 PM Signed PATIENT INFORMATION Record ID: [id number] Patient Name: Olaf Briones [facility] [place]: [facility] [place] Attending: David Andrews Center: Urology INSTRUCTIONS SN to remind patient of appointment date, time, location All Clear All Clear SURVEY INFORMATION Medical/Nurse Social Research Assistant: Deborah Ibarra 1. Your discharge instructions [...] Reason for Visit: Follow Up Phone Call [0200] Cmt: All Clear Prescriptions as of 09/04/2022 [...] Hematuria [R31.9] 08/27/2022 Coronary artery disease involving belkofski hinton*08/27/2022 Adverse reaction to antiplatelet agent [T45.7X5*08/27/2022 Myocardial infarction (HCC) [I21.9] 08/27/2022 Essential (primary) hypertension [I10] 08/27/2022 Type 2 diabetes mellitus without complication, *08/27/2022 Leukocytosis [D72.829] 08/27/2022 Malnutrition of mild degree (HCC) [E44.1] 08/29/2022 Encounter Status:Closed by DEBORAH IBARRA on 09/04/22 Normal [facility] CBC panel Auto (Bld)on 08-31 Erythrocyte distribution width (RBC) [Ratio] 12.8 % Normal 11.5-15.0 [facility] Comment on above: Order Comment: Speci men Type: BLOOD SPECIMENOrdering Facility: [facility] Address: [address] [place] [address] Performed By: #### 5 8410-2 ####[facility] LABIA [id number] [place] [address] [place] Hematocrit (Bld) [Volume fraction] 30.7 % Low 39.0-51.0 [facility] Comment on above: Order Comment: Portia tay Type: BLOOD SPECIMENOrdering Facility: [facility] Address: [address] [place] [address] Performed By: #### 5 8410-2 ####[facility] LABIA [id number] [place] [address] [place] Hemoglobin (Bld) [Mass/Vol] 10.4 g/dL Low 13.0-17.0 [facility] Comment on above: Order Comment: Janiei men Type: BLOOD SPECIMENOrdering Facility: [facility] Address: [address] [place] [address] Performed By: #### 5 8410-2 ####[facility] LABIA [id number] [address] MCH (RBC) [Entitic mass] 31.4 pg Normal 26.0-34.0 [facility] Comment on above: Order Comment: Speci men Type: BLOOD SPECIMENOrdering Facility: [facility] Address: [address] [place] [address] Performed By: #### 5 8410-2 ####[facility] LABCLIA [id number] [address] STATES [facility] MCHC (RBC) [Mass/Vol] 33.9 g/dL Normal 30.5-36.0 [facility] Comment on above: Order Comment: Speci men Type: BLOOD SPECIMENOrdering Facility: [facility] Address: [address] [place] [address] Performed By: #### 5 8410-2 ####[facility] LABCLIA [id number] [address] OF [facility] MCV (RBC) [Entitic vol] 92.7 fL Normal 80.0-100.0 [facility] Comment on above: Order Comment: Speci men Type: BLOOD SPECIMENOrdering Facility: [facility] Address: [address] [place] [address] Performed By: #### 5 8410-2 ####[facility] LABCLIA [id number] [place] [address] [place] Nucleated RBC (Bld) [#/Vol] 10*3/uL Normal <0.01 [facility] Comment on above: Order Comment: Speci men Type: BLOOD SPECIMENOrdering Facility: [facility] Address: [address] [place], [place] [address] Performed By: #### 5 8410-2 ####[facility] LABCLIA [id number] [address] [place] Platelet mean volume (Bld) [Entitic vol] 11.5 fL Normal 9.0-12.7 [facility] Comment on above: Order Comment: Speci men Type: BLOOD SPECIMENOrdering Facility: [facility] Address: [address] [place] [address] Performed By: #### 5 8410-2 ####[facility] LABCLIA [id number] [place] [address] [place] Platelets (Bld) [#/Vol] 194 10*3/uL Normal 150-400 [facility] Comment on above: Order Comment: Speci men Type: BLOOD SPECIMENOrdering Facility: [facility] Address: [address] [place] [address] Performed By: #### 5 8410-2 ####[facility] LABIA [id number] [place] [address] [place] RBC (Bld) [#/Vol] 3.31 10*6/uL Low 4.20-6.00 [facility] Comment on above: Order Comment: Speci men Type: BLOOD SPECIMENOrdering Facility: [facility] Address: [address] [place] [address] Performed By: #### 5 8410-2 ####[facility] LABIA [id number] [place] [address] [place] WBC (Bld) [#/Vol] 10.56 10*3/uL Normal 3.70-11.00 [facility] Comment on above: Order Comment: Speci men Type: BLOOD SPECIMENOrdering Facility: [facility] Address: [address] [place] [address] Performed By: #### 5 8410-2 ####[facility] LABIA [id number] [address] OF [place] CNDSon 08-31-2022 CNDS HNO ID: [id number] Author: David Andrews MD Service: Urology Author [...] stable in SICU, ready to transfer to [facility]. Hernandez light pink on traction. Discontinued on Zosyn given negative blood and urine cultures. - DOA#3/POD#2: Hemoglobin continues to be stable. Urine light pink off traction. Transferred to [facility] - DOA#4/POD#3: Will discharge today with hernandez [...] Your Medications These medications were sent to [facility] [address] [place] [address] Hours: Saturday-Saturday 7am-8pm, Saturday, Saturday and Holidays [...] DATE: August 31, 2022 TIME: 8:41 AM [facility] STAFF PHYSICIAN NOTE OF PERSONAL INVOLVEMENT [...] care coordinatio (more content not included)... Normal [facility] metabolic 2000 panelon 08-31-2022 Albumin [Mass/Vol] 3.8 g/dL Low 3.9-4.9 [facility] Comment on above: Order Comment: Speci men Type: BLOOD SPECIMENOrdering Facility: [facility] Address: [address] [place] [address] Performed By: #### 2 4323-8, 58826-3, 2776-1 ####[facility] LABCLIA [id number] [place] [address] [place] ALP [Catalytic activity/Vol] 116 U/L High 38-113 [facility] Comment on above: Order Comment: Speci men Type: BLOOD SPECIMENOrdering Facility: [facility] Address: [address] [place] [address] Performed By: #### 2 4323-8, 05706-5, 2776- ####[facility] LABCLIA [id number] [place] [address] [place] ALT [Catalytic activity/Vol] 23 U/L Normal 10-54 [facility] Comment on above: Order Comment: Speci men Type: BLOOD SPECIMENOrdering Facility: [facility] Address: [address] [place] [address] Performed By: #### 2 4323-8, 91528-3, 2776- ####[facility] LABCLIA [id number] [place] [address] [place] Anion gap [Moles/Vol] 9 mmol/L Normal 9-18 [facility] Comment on above: Order Comment: Speci men Type: BLOOD SPECIMENOrdering Facility: [facility] Address: [address] [place] [address] Performed By: #### 2 4323-8, 57591-5, 2776-1 ####[facility] LABCLIA [id number] [place] [id number] [place] AST [Catalytic activity/Vol] 19 U/L Normal 14-40 [facility] Comment on above: Order Comment: Speci men Type: BLOOD SPECIMENOrdering Facility: [facility] Address: [address] [place] [address] Performed By: #### 2 4323-8, , 2776-02 ####[facility] LABCLIA [id number] [place] [address] [place] Bilirubin [Mass/Vol] 0.3 mg/dL Normal 0.2-1.3 [facility] Comment on above: Order Comment: Speci men Type: BLOOD SPECIMENOrdering Facility: [facility] Address: [address] [place] [address] Performed By: #### 2 4323-8, , 2776-02 ####[facility] LABCLIA [id number] [place] [address] [place] Calcium [Mass/Vol] 9.1 mg/dL Normal 8.5-10.2 [facility] Comment on above: Order Comment: Speci men Type: BLOOD SPECIMENOrdering Facility: [facility] Address: [address] [place] [address] Performed By: #### 2 4323-8, , 2776-02 ####[facility] LABCLIA [id number] [place] [address] [place] Chloride [Moles/Vol] 105 mmol/L Normal 97-105 [facility] Comment on above: Order Comment: Speci men Type: BLOOD SPECIMENOrdering Facility: [facility] Address: [address] [place], [place] [address] Performed By: #### 2 4323-8, , 2776-02 ####[facility] LABCLIA [id number] [place] [address] [place] CO2 [Moles/Vol] 25 mmol/L Normal 22-30 [facility] Comment on above: Order Comment: Speci men Type: BLOOD SPECIMENOrdering Facility: [facility] Address: [address] [place] [id number] Performed By: #### 2 4323-8, , 2776-02 ####[facility] LABCLIA [id number] [place] [address] [place] Creatinine [Mass/Vol] 0.88 mg/dL Normal 0.73-1.22 [facility] Comment on above: Order Comment: Speci men Type: BLOOD SPECIMENOrdering Facility: [facility] Address: [address] [place] [address] Performed By: #### 2 4323-8, , 2776-02 ####[facility] LABCLIA [id number] [place] [address] [place] ESTIMATED GLOMERULAR FILTRATION RATE 89 mL/min/1.73m??? Normal >=60 [facility] Comment on above: Order Comment: Speci men Type: BLOOD SPECIMENOrdering Facility: [facility] Address: [address] [place] [address] Result Comment: Mariaelena mated Glomerular Filtration Rate [...] By: #### 2 4323-8, , 2776-02 ####[facility] LABCLIA [id number] [place] [address] [place] Glucose [Mass/Vol] 114 mg/dL High 74-99 [facility] Comment on above: Order Comment: Speci men Type: BLOOD SPECIMENOrdering Facility: [facility] Address: [address] [id number] Result Comment: The [place] Diabetes Association (ADA) provides guidance for cutoff [...] Standards of Medical Care in Diabetes 2016, [place] [employer]. Diabetes Care. 2016.39(Suppl 1). Performed By: #### 2 4323-8, , 2776-02 ####[facility] LABIA [id number] [place] [address] [place] Potassium [Moles/Vol] 4.2 mmol/L Normal 3.7-5.1 [facility] Comment on above: Order Comment: Speci men Type: BLOOD SPECIMENOrdering Facility: [facility] Address: [address] [place] [phone] Performed By: #### 2 4323-8, , 2776-02 ####[facility] LABIA [id number] [place] [address] [place] Protein [Mass/Vol] 6.1 g/dL Low 6.3-8.0 [facility] Comment on above: Order Comment: Speci men Type: BLOOD SPECIMENOrdering Facility: [facility] Address: [address] [place] [address] Performed By: #### 2 4323-8, , 2776-02 ####[facility] LABIA [id number] [place] [address] [place] Sodium [Moles/Vol] 139 mmol/L Normal 136-144 [facility] Comment on above: Order Comment: Speci men Type: BLOOD SPECIMENOrdering Facility: [facility] Address: [address] [place] [address] Performed By: #### 2 4323-8, 26418-2, 2776- ####[facility] LABIA [id number] [place] [id number] [place] Urea nitrogen [Mass/Vol] 21 mg/dL Normal 9-24 [facility] Comment on above: Order Comment: Speci jasvir Type: BLOOD SPECIMENOrdering Facility: [facility] Address: [address] [place], [place] [address] Performed By: #### 2 4323-8, , 2776- ####[facility] [id number] [place] [id number] [place] Magnesium SerPl-mCncon 08-31 Magnesium [Mass/Vol] 2.2 mg/dL Normal 1.7-2.3 [facility] Comment on above: Order Comment: Speci jasvir Type: BLOOD SPECIMENOrdering Facility: [facility] Address: [address] [place], [place] [address] Performed By: #### 2 4323-8, , 2776-02 ####[facility] [id number] [place] [address] [place] PT panel Coag (PPP)on 2022 INR Coag (PPP) [Relative time] 1.0 {INR} Normal 0.9-1.3 [facility] Comment on above: Order Comment: Portia tay Type: BLOOD SPECIMENOrdering Facility: [facility] Address: [address] [place], [place] [address] Result Comment: Mago min K Antagonist (VKA) Therapeutic Range: INR 2 to 3 (Target INR of 2.5) Note: For patients treated with VKA drugs, such as warfarin, the [place] [employer] 2012 Guideline recommends [...] Chest 2012, 141:7S-47S Daniel RA, et al. [facility] 2017, 70: 252-289 Performed By: #### 3 4528-0, 27280-4 ####[facility] [facility] [id number] [address] OF [facility] PT Coag (PPP) [Time] 10.4 s Normal 9.7-13.0 [facility] Comment on above: Order Comment: Specherbie men Type: BLOOD SPECIMENOrdering Facility: [facility] Address: [address] [place] [address] Performed By: #### 3 4528-0, 71161-7 ####[facility] [id number] [address] OF [place] Phosphate SerPl-mCncon 08-31 Phosphate [Mass/Vol] 3.6 mg/dL Normal 2.7-4.8 [facility] Comment on above: Order Comment: Portia tay Type: BLOOD SPECIMENOrdering Facility: [facility] Address: [address] [place] [address] Performed By: #### 2 4323-8, 23657-0, 2777-1 ####[facility] [id number] [place] [id number] [facility] OF [place] THERAPY NTon 08-31-2022 THERAPY NT HNO ID: [id number] Author: Jenna Duggan, PT Service: Physical Therapy Author Type: Physical Therapist Type: Therapy (PT/OT/Speech/Resp) Filed: 08/31/2022 10:55 AM Note Text: Physical Therapy Treatment SERVICE DATE: 08/31/2022 SERVICE TIME: 0940 to 1003 ROOM: [place] [address] Recommended Discharge Disposition: Home Anticipated Discharge Needs: [...] HLD, DM, recent STEMI (08/20/2022), transferred from [facility] for gross hematuria. Currently with 18Fr 3-way catheter on CBI. 08/28/22: s/p cystoscopy, clot evacuation, cystolitholapaxy, TURP. Admitted to SICU postoperatively due to pressor requirements and risk of hyponatremia due to length of TURP. 22Fr [address] hernandez placed introp, on traction and CBI. Reason for Hospital Admission: Pt 77y/o male transferred from [facility] for gross hematuria secondary to recent [...] General Deviations/Observations: Diana decreased, Flexed trunk posture -[facility]: 8: Walk 250 feet or more [...] Diagnosis: Reduced mobility-other Interventions Provided: Gait Training (31963) Gait Training (14717) Treatment Minutes: 23 $ Gait Training (27946) Billed Units: 2 units Training AND Education Provided in: Benefits of In-Hospital Mobility, Bed Mobility, Energy Conservation, Equipment, Exercise Program, Expected Functional Level, Gait Pattern, Reduction of Deviations, Patient Exercise/Therapy Program Support Needs, Positioning, Precautions/Restrictions, Role of Physical Therapy, Standing Balance, (more content not included)... Normal [facility] aPTT PPPon 08-31-2022 aPTT Coag (PPP) [Time] 25.2 s Normal 23.0-32.4 Cl [facility] Comment on above: Order Comment: Speci men Type: BLOOD SPECIMENOrdering Facility: [facility] Address: [address] [address] Performed By: #### 3 4528-0, 74977-1 ####[facility] LABIA [id number] [address] STATES OF [place] CBC panel Auto (Bld)on 08-30 Erythrocyte distribution width (RBC) [Ratio] 12.7 % Normal 11.5-15.0 [facility] Comment on above: Order Comment: Speci men Type: BLOOD SPECIMENOrdering Facility: [facility] Address: [address] [place] [address] Performed By: #### 5 8410-2 ####[facility] LABIA [id number] [address] [place] Hematocrit (Bld) [Volume fraction] 30.5 % Low 39.0-51.0 [facility] Comment on above: Order Comment: Speci men Type: BLOOD SPECIMENOrdering Facility: [facility] Address: [address] [place] [address] Performed By: #### 5 8410-2 ####[facility] LABIA [id number] [address] [place] Hemoglobin (Bld) [Mass/Vol] 10.4 g/dL Low 13.0-17.0 [facility] Comment on above: Order Comment: Speci men Type: BLOOD SPECIMENOrdering Facility: [facility] Address: [address] [place] [address] Performed By: #### 5 8410-2 ####[facility] LABIA [id number] [address] [place] MCH (RBC) [Entitic mass] 31.7 pg Normal 26.0-34.0 [facility] Comment on above: Order Comment: Speci men Type: BLOOD SPECIMENOrdering Facility: [facility] Address: [address] [place] [address] Performed By: #### 5 8410-2 ####[facility] LABIA [id number] [address] [place] MCHC (RBC) [Mass/Vol] 34.1 g/dL Normal 30.5-36.0 [facility] Comment on above: Order Comment: Speci men Type: BLOOD SPECIMENOrdering Facility: [facility] Address: [address] [place] [phone] Performed By: #### 5 8410-2 ####[facility] LABIA [id number] [place] [address] [place] MCV (RBC) [Entitic vol] 93.0 fL Normal 80.0-100.0 [facility] Comment on above: Order Comment: Speci men Type: BLOOD SPECIMENOrdering Facility: [facility] Address: [address] [place] [phone] Performed By: #### 5 8410-2 ####[facility] [id number] [place] [address] [place] Nucleated RBC (Bld) [#/Vol] 10*3/uL Normal <0.01 [facility] Comment on above: Order Comment: Speci men Type: BLOOD SPECIMENOrdering Facility: [facility] Address: [address] [place] [address] Performed By: #### 5 8410-2 ####[facility] LABIA [id number] [address] [place] Platelet mean volume (Bld) [Entitic vol] 11.6 fL Normal 9.0-12.7 [facility] Comment on above: Order Comment: Speci men Type: BLOOD SPECIMENOrdering Facility: [facility] Address: [address] [place] [address] Performed By: #### 5 8410-2 ####[facility] [id number] [place] [id number] [place] Platelets (Bld) [#/Vol] 192 10*3/uL Normal 150-400 [facility] Comment on above: Order Comment: Speci men Type: BLOOD SPECIMENOrdering Facility: [facility] Address: [address] [place] [address] Performed By: #### 5 8410-2 ####[facility] [id number] [place] [address] [place] RBC (Bld) [#/Vol] 3.28 10*6/uL Low 4.20-6.00 [facility] Comment on above: Order Comment: Speci men Type: BLOOD SPECIMENOrdering Facility: [facility] Address: [address] [place] [address] Performed By: #### 5 8410-2 ####[facility] [id number] [place] [address] [place] WBC (Bld) [#/Vol] 15.06 10*3/uL High 3.70-11.00 [facility] Comment on above: Order Comment: Speci men Type: BLOOD SPECIMENOrdering Facility: [facility] Address: [address] [place] [address] Performed By: #### 5 8410-2 ####[facility] [id number] [place] [address] [place] Comprehensive metabolic 2000 panelon 08-30-2022 Albumin [Mass/Vol] 3.4 g/dL Low 3.9-4.9 [facility] Comment on above: Order Comment: Speci men Type: BLOOD SPECIMENOrdering Facility: [facility] Address: [address] [place] [address] Performed By: #### 2 4323-8, 70147-3, 2777-1 ####[facility] [id number] [place] [address] [place] ALP [Catalytic activity/Vol] 105 U/L Normal 38-113 [facility] Comment on above: Order Comment: Speci men Type: BLOOD SPECIMENOrdering Facility: [facility] Address: [address] [place], [place] [address] Performed By: #### 2 4323-8, , 2776-02 ####[facility] [id number] [place] [address] [place] ALT [Catalytic activity/Vol] 18 U/L Normal 10-54 [facility] Comment on above: Order Comment: Speci men Type: BLOOD SPECIMENOrdering Facility: [facility] Address: [address] [place] [address] Performed By: #### 2 4323-8, , 2776-02 ####[facility] [id number] [place] [address] [place] Anion gap [Moles/Vol] 11 mmol/L Normal 9-18 [facility] Comment on above: Order Comment: Speci men Type: BLOOD SPECIMENOrdering Facility: [facility] Address: [address] [place], [place] [address] Performed By: #### 2 4323-8, , 2776-02 ####[facility] [id number] [place] [address] [place] AST [Catalytic activity/Vol] 16 U/L Normal 14-40 [facility] Comment on above: Order Comment: Speci men Type: BLOOD SPECIMENOrdering Facility: [facility] Address: [address] [place], [place] [address] Performed By: #### 2 4323-8, , 2776-02 ####[facility] [id number] [place] [address] [place] Bilirubin [Mass/Vol] 0.3 mg/dL Normal 0.2-1.3 [facility] Comment on above: Order Comment: Speci men Type: BLOOD SPECIMENOrdering Facility: [facility] Address: [address] Performed By: #### 2 4323-8, , 2776-02 ####[facility] [id number] [place] [address] [place] Calcium [Mass/Vol] 8.9 mg/dL Normal 8.5-10.2 [facility] Comment on above: Order Comment: Speci men Type: BLOOD SPECIMENOrdering Facility: [facility] Address: [address] Performed By: #### 2 4323-8, , 2776-02 ####[facility] [id number] [place] [address] [place] Chloride [Moles/Vol] 103 mmol/L Normal 97-105 [facility] Comment on above: Order Comment: Speci men Type: BLOOD SPECIMENOrdering Facility: [facility] Address: [address] Performed By: #### 2 4323-8, , 2776-02 ####[facility] [id number] [place] [address] [place] CO2 [Moles/Vol] 24 mmol/L Normal 22-30 [facility] Comment on above: Order Comment: Speci men Type: BLOOD SPECIMENOrdering Facility: [facility] Address: [address] [place] [id number] Performed By: #### 2 4323-8, , 2776-02 ####[facility] [id number] [address] [address] [place] Creatinine [Mass/Vol] 0.77 mg/dL Normal 0.73-1.22 [facility] Comment on above: Order Comment: Speci men Type: BLOOD SPECIMENOrdering Facility: [facility] Address: [address] [id number] Performed By: #### 2 4323-8, 73609-4, 2777-1 ####[facility] [id number] [place] [id number] [place] ESTIMATED GLOMERULAR FILTRATION RATE 92 mL/min/1.73m??? Normal >=60 [facility] Comment on above: Order Comment: Speci men Type: BLOOD SPECIMENOrdering Facility: [facility] Address: [address] [id number] Result Comment: Mariaelena mated Glomerular Filtration Rate [...] actual GFR. Performed By: #### 2 4323-8, 10179-2, 2777-1 ####[facility] LABIA [id number] [place] [id number] [place] Glucose [Mass/Vol] 124 mg/dL High 74-99 [facility] Comment on above: Order Comment: Janieherbie jasvir Type: BLOOD SPECIMENOrdering Facility: [facility] Address: [address] [place] [id number] Result Comment: The [place] [employer] Association (ADA) provides guidance for cutoff [...] Standards of Medical Care in Diabetes 2016, [place] [employer]. Diabetes Care. 2016.39(Suppl 1). Performed By: #### 2 4323-8, 32286-8, 2776-02 ####[facility] [id number] [address] [address] [place] Potassium [Moles/Vol] 3.9 mmol/L Normal 3.7-5.1 [facility] Comment on above: Order Comment: Speci men Type: BLOOD SPECIMENOrdering Facility: [facility] Address: [address] [place] [address] Performed By: #### 2 4323-8, , 2776-02 ####[facility] LABIA [id number] [place] [address] [place] Protein [Mass/Vol] 6.2 g/dL Low 6.3-8.0 [facility] Comment on above: Order Comment: Speci men Type: BLOOD SPECIMENOrdering Facility: [facility] Address: [address] [address] Performed By: #### 2 4323-8, , 2776-02 ####[facility] LAB[facility] [id number] [place] [address] [place] Sodium [Moles/Vol] 138 mmol/L Normal 136-144 [facility] Comment on above: Order Comment: Speci men Type: BLOOD SPECIMENOrdering Facility: [facility] Address: [address] Performed By: #### 2 4323-8, , 2776-02 ####[facility] LABIA [id number] [place] [id number] [place] Urea nitrogen [Mass/Vol] 22 mg/dL Normal 9-24 [facility] Comment on above: Order Comment: Speci men Type: BLOOD SPECIMENOrdering Facility: [facility] Address: [address] Performed By: #### 2 4323-8, 69629-9, 2777-1 ####[facility] LABCLIA [id number] [place] [id number] [facility] Magnesium SerPl-mCncon 08-30 Magnesium [Mass/Vol] 2.2 mg/dL Normal 1.7-2.3 [facility] Comment on above: Order Comment: Speci men Type: BLOOD SPECIMENOrdering Facility: [facility] Address: [address] [place] [address] Performed By: #### 2 4323-8, 03870-3, 2777- ####[facility] LABIA [id number] [address] PT panel Coag (PPP)on 2022 INR Coag (PPP) [Relative time] 1.1 {INR} Normal 0.9-1.3 [facility] Comment on above: Order Comment: Speci jasvir Type: BLOOD SPECIMENOrdering Facility: [facility] Address: [address] [place] [address] Result Comment: Mago min K Antagonist (VKA) Therapeutic Range: INR 2 to 3 (Target INR of 2.5) Note: For patients treated with VKA drugs, such as warfarin, the [place] [employer] 2012 Guideline recommends [...] Chest 2012, 141:7S-47S Daniel KENNEDY, et al. [facility] 2017, 70: 252-289 Performed By: #### 3 4528-0, 89215-9 ####[facility] LABIA [id number] [address] [place] PT Coag (PPP) [Time] 10.9 s Normal 9.7-13.0 [facility] Comment on above: Order Comment: Speci men Type: BLOOD SPECIMENOrdering Facility: [facility] Address: [address] [place] [address] Performed By: #### 3 4528-0, 44912-1 ####[facility] LABIA [id number] [address] Phosphate SerPl-mCncon 08-30 Phosphate [Mass/Vol] 3.2 mg/dL Normal 2.7-4.8 [facility] Comment on above: Order Comment: Speci men Type: BLOOD SPECIMENOrdering Facility: [facility] Address: [address] [place] [address] Performed By: #### 2 4323-8, 10820-4, 2777-1 ####[facility] LABIA [id number] [address] THERAPY NTon 08-30-2022 THERAPY NT HNO ID: [id number] Author: Jenna Duggan, PT Service: Physical Therapy Author Type: Physical Therapist Type: Therapy (PT/OT/Speech/Resp) Filed: 08/30/2022 3:12 PM Note Text: Physical Therapy Treatment SERVICE DATE: 08/30/2022 SERVICE TIME: 1337 to 1400 ROOM: [place] [address] Recommended Discharge Disposition: Home Anticipated Discharge Needs: [...] HLD, DM, recent STEMI (08/20/2022), transferred from [facility] for gross hematuria. Currently with 18Fr 3-way catheter on CBI. 08/28/22: s/p cystoscopy, clot evacuation, cystolitholapaxy, TURP. Admitted to SICU postoperatively due to pressor requirements and risk of hyponatremia due to length of TURP. 22Fr [address] hernandez placed introp, on traction and CBI. Reason for Hospital Admission: Pt 77y/o male transferred from [facility] for gross hematuria secondary to recent [...] General Deviations/Observations: Diana decreased, Flexed trunk posture -[facility]: 8: Walk 250 feet or more [...] Diagnosis: Reduced mobility-other Interventions Provided: Therapeutic Activity (86150), Gait Training (15190) Therapeutic Activity (74012) Treatment Minutes: 8 $ Therapeutic Activity (64352) Billed Units: 1 unit Gait Training (86556) Treatment Minutes: 15 $ Gait Training (63136) Billed Units: 1 unit Training AND Education Provided in: Benefits of In-Hospital Mobility, Bed Mobility, Energy Conservation, Equipment, Exercise Program, Expected Functional Level, Gait Pattern, Reduction of Deviations, Patient Exercise/Therapy Program Support Needs, Positioning, Precautions/Restrictions, Role of Physical Therapy, Standing Balance, Treatment Protocol, Transfers The Followin (more content not included)... Normal [facility] TYPE + SCREENon 08-30-2022 ABO O Normal [facility] Comment on above: Order Comment: Speci men Type: BLOOD SPECIMENOrdering Facility: [facility] Address: [address] [place] [address] Performed By: #### T SCR ####CC [facility]IN BLOOD BANKCLIA [id number] [address] STATES OF [facility] HISTORICAL AB SCR STATUS Negative Normal [facility] Comment on above: Order Comment: Speci men Type: BLOOD SPECIMENOrdering Facility: [facility] Address: [address] [place] [address] Performed By: #### T SCR ####CC [facility]IN BLOOD BANKCLIA [id number] [address] [place] Rh Nom (Bld) Positive Normal [facility] Comment on above: Order Comment: Speci men Type: BLOOD SPECIMENOrdering Facility: [facility] Address: [address] [address] Performed By: #### T SCR ####CC [facility] BLOOD BANKIA [id number] [address] OF [facility] TYPE AND SCREEN EXPIRATION 09/02/2022 23:59 Normal [facility] Comment on above: Order Comment: Speci men Type: BLOOD SPECIMENOrdering Facility: [facility] Address: [address] [place] [address] Performed By: #### T SCR ####CC [facility] B[facility]OD [facility] [id number] [address] aPTT PPPon 08-30-2022 aPTT Coag (PPP) [Time] 26.5 s Normal 23.0-32.4 Cl [facility] Comment on above: Order Comment: Speci men Type: BLOOD SPECIMENOrdering Facility: [facility] Address: [address] [place] [address] Performed By: #### 3 4528-0, 68993-1 ####[facility] LABCLIA [id number] [address] C Urineon 08-29-2022 Bacteria identified Cx [...] Locations R1: This test was performed at: [facility], [address] [place] [address], [address] , [place], Normal [facility] Comment on above: Performed By: #### 2 793630, 11653177, 3175711, [id number], 5440310 #### [facility] [address] [place] [address] CBC panel Auto (Bld)on 08-29 Erythrocyte distribution width (RBC) [Ratio] 12.5 % Normal 11.5-15.0 [facility] Comment on above: Order Comment: Speci men Type: BLOOD SPECIMENOrdering Facility: [facility] Address: [address] [place] [address] Performed By: #### 5 8410-2 ####[facility] [id number] [address] [place] Hematocrit (Bld) [Volume fraction] 30.7 % Low 39.0-51.0 [facility] Comment on above: Order Comment: Speci men Type: BLOOD SPECIMENOrdering Facility: [facility] Address: [address] [place] [address] Performed By: #### 5 8410-2 ####[facility] [id number] [address] [place] Hemoglobin (Bld) [Mass/Vol] 10.6 g/dL Low 13.0-17.0 [facility] Comment on above: Order Comment: Speci men Type: BLOOD SPECIMENOrdering Facility: [facility] Address: [address] [address] Performed By: #### 5 8410-2 ####[facility] LABIA [id number] [place] [address] [place] MCH (RBC) [Entitic mass] 32.0 pg Normal 26.0-34.0 [facility] Comment on above: Order Comment: Speci men Type: BLOOD SPECIMENOrdering Facility: [facility] Address: [address] [place] [address] Performed By: #### 5 8410-2 ####[facility] LABCLIA [id number] [address] STATES [facility] MCHC (RBC) [Mass/Vol] 34.5 g/dL Normal 30.5-36.0 [facility] Comment on above: Order Comment: Speci men Type: BLOOD SPECIMENOrdering Facility: [facility] Address: [address] Performed By: #### 5 8410-2 ####[facility] LABCLIA [id number] [address] [place] MCV (RBC) [Entitic vol] 92.7 fL Normal 80.0-100.0 [facility] Comment on above: Order Comment: Speci men Type: BLOOD SPECIMENOrdering Facility: [facility] Address: [address] Performed By: #### 5 8410-2 ####[facility] LABIA [id number] [place] [address] [place] Nucleated RBC (Bld) [#/Vol] 10*3/uL Normal <0.01 [facility] Comment on above: Order Comment: Speci men Type: BLOOD SPECIMENOrdering Facility: [facility] Address: [address] [place] [address] Performed By: #### 5 8410-2 ####[facility] LABCLIA [id number] [place] [address] [place] Platelet mean volume (Bld) [Entitic vol] 11.6 fL Normal 9.0-12.7 [facility] Comment on above: Order Comment: Speci men Type: BLOOD SPECIMENOrdering Facility: [facility] Address: [address] Performed By: #### 5 8410-2 ####[facility] LABIA [id number] [place] [address] [place] Platelets (Bld) [#/Vol] 159 10*3/uL Normal 150-400 [facility] Comment on above: Order Comment: Speci men Type: BLOOD SPECIMENOrdering Facility: [facility] Address: [address] [place] [address] Performed By: #### 5 8410-2 ####[facility] [id number] [place] [address] [place] RBC (Bld) [#/Vol] 3.31 10*6/uL Low 4.20-6.00 [facility] Comment on above: Order Comment: Speci men Type: BLOOD SPECIMENOrdering Facility: [facility] Address: [address] [place] [address] Performed By: #### 5 8410-2 ####[facility] [id number] [place] [address] [place] WBC (Bld) [#/Vol] 13.57 10*3/uL High 3.70-11.00 [facility] Comment on above: Order Comment: Speci men Type: BLOOD SPECIMENOrdering Facility: [facility] Address: [address] [place] [address] Performed By: #### 5 8410-2 ####[facility] [id number] [place] [address] [place] Erythrocyte distribution width (RBC) [Ratio] 12.5 % Normal 11.5-15.0 [facility] Comment on above: Order Comment: Speci men Type: BLOOD SPECIMENOrdering Facility: [facility] Address: [address] [place] [address] Performed By: #### 5 8410-2 ####[facility] [id number] [place] [address] [place] Hematocrit (Bld) [Volume fraction] 25.7 % Low 39.0-51.0 [facility] Comment on above: Order Comment: Speci men Type: BLOOD SPECIMENOrdering Facility: [facility] Address: [address] [place] [address] Performed By: #### 5 8410-2 ####[facility] LABCLIA [id number] [place] [address] [place] Hemoglobin (Bld) [Mass/Vol] 9.1 g/dL Low 13.0-17.0 [facility] Comment on above: Order Comment: Speci men Type: BLOOD SPECIMENOrdering Facility: [facility] Address: [address] [place] [address] Performed By: #### 5 8410-2 ####[facility] LABCLIA [id number] [place] [address] [place] MCH (RBC) [Entitic mass] 32.4 pg Normal 26.0-34.0 [facility] Comment on above: Order Comment: Speci men Type: BLOOD SPECIMENOrdering Facility: [facility] Address: [address] [place] [address] Performed By: #### 5 8410-2 ####[facility] LABIA [id number] [place] [address] [place] MCHC (RBC) [Mass/Vol] 35.4 g/dL Normal 30.5-36.0 [facility] Comment on above: Order Comment: Speci men Type: BLOOD SPECIMENOrdering Facility: [facility] Address: [address] [place] [address] Performed By: #### 5 8410-2 ####[facility] LABIA [id number] [place] [address] [place] MCV (RBC) [Entitic vol] 91.5 fL Normal 80.0-100.0 [facility] Comment on above: Order Comment: Speci men Type: BLOOD SPECIMENOrdering Facility: [facility] Address: [address] [address] Performed By: #### 5 8410-2 ####[facility] LABIA [id number] [place] [address] [place] Nucleated RBC (Bld) [#/Vol] 10*3/uL Normal <0.01 [facility] Comment on above: Order Comment: Speci men Type: BLOOD SPECIMENOrdering Facility: [facility] Address: [address] [place] [address] Performed By: #### 5 8410-2 ####[facility] [id number] [place] [address] [place] Platelet mean volume (Bld) [Entitic vol] 11.1 fL Normal 9.0-12.7 [facility] Comment on above: Order Comment: Speci men Type: BLOOD SPECIMENOrdering Facility: [facility] Address: [address] [place] [address] Performed By: #### 5 8410-2 ####[facility] [id number] [place] [address] [place] Platelets (Bld) [#/Vol] 138 10*3/uL Low 150-400 [facility] Comment on above: Order Comment: Speci men Type: BLOOD SPECIMENOrdering Facility: [facility] Address: [address] [place] [address] Result Comment: No c lot detected.Results checked and verified. Performed By: #### 5 8410-2 ####[facility] [id number] [place] [address] [place] RBC (Bld) [#/Vol] 2.81 10*6/uL Low 4.20-6.00 [facility] Comment on above: Order Comment: Speci men Type: BLOOD SPECIMENOrdering Facility: [facility] Address: [address] [place] [address] Performed By: #### 5 8410-2 ####[facility] LABIA [id number] [place] [address] [place] WBC (Bld) [#/Vol] 11.86 10*3/uL High 3.70-11.00 [facility] Comment on above: Order Comment: Speci men Type: BLOOD SPECIMENOrdering Facility: [facility] Address: [address] [id number] Performed By: #### 5 8410-2 ####[facility] LABCLIA [id number] [address] CNPEl[place] 08-29-2022 CNPN Telephone (ANGEL) -- OLAF BRIONES ([id number]) 1945 M Date Time Provider Department 08/29/22 [...] Hematuria [R31.9] 08/27/2022 Coronary artery disease involving belkofski hintno*08/27/2022 Adverse reaction to antiplatelet agent [T45.7X5*08/27/2022 Myocardial infarction (HCC) [I21.9] 08/27/2022 Primary hypertension [I10] 08/27/2022 Type 2 diabetes mellitus without complication, *08/27/2022 Leukocytosis [D72.829] 08/27/2022 Malnutrition of mild degree (HCC) [E44.1] 08/29/2022 Encounter Status:Closed by DAVID ANDREWS on 08/29/22 Normal [facility] CONSULT PROGon 08-29-2022 CONSULT PROG HNO ID: [id number] Author: Rodriguez Miller APRN.SILVICULTURE TEACHER Service: Cardiovascular Medicine Author Type: Nurse Practitioner Type: Consult Progress Note Filed: 08/29/2022 11:18 AM Note Text: [facility] CONSULT PROGRESS NOTE (Template ID [id number]) CONSULTING SERVICE: Cardiology: Consult Team PRIMARY SERVICE: [...] 08/29/2022 0700 Gross per 24 hour Intake 12404.5 ml Output 22718 ml Net 5853.5 ml TELEMETRY: SR IMAGING: [...] for comparison. Stent card from [facility] from 08/20/2022 DATA: Laboratory: Recent Labs 08/29/22 [...] (2000) and TURP (2006) who presented to [facility] (more content not included)... Normal [facility] Comprehensive metabolic 2000 panelon 08-29-2022 Albumin [Mass/Vol] 4.2 g/dL Normal 3.9-4.9 [facility] Comment on above: Order Comment: Speci men Type: BLOOD SPECIMENOrdering Facility: [facility] Address: [address] [address] Performed By: #### 2 4323-8 ####[facility] LABCLIA [id number] [place] [address] [place] ALP [Catalytic activity/Vol] 116 U/L High 38-113 [facility] Comment on above: Order Comment: Speci men Type: BLOOD SPECIMENOrdering Facility: [facility] Address: [address] [address] Performed By: #### 2 4323-8 ####[facility] LABCLIA [id number] [place] [address] [place] ALT [Catalytic activity/Vol] 20 U/L Normal 10-54 [facility] Comment on above: Order Comment: Speci men Type: BLOOD SPECIMENOrdering Facility: [facility] Address: [address] [address] Performed By: #### 2 4323-8 ####[facility] LABCLIA [id number] [place] [address] [place] Anion gap [Moles/Vol] 13 mmol/L Normal 9-18 [facility] Comment on above: Order Comment: Speci men Type: BLOOD SPECIMENOrdering Facility: [facility] Address: [address] [address] Performed By: #### 2 4323-8 ####[facility] LABCLIA [id number] [place] [address] [place] AST [Catalytic activity/Vol] 19 U/L Normal 14-40 [facility] Comment on above: Order Comment: Speci men Type: BLOOD SPECIMENOrdering Facility: [facility] Address: [address] [place] [address] Performed By: #### 2 4323-8 ####[facility] LABCLIA [id number] [place] [address] [place] Bilirubin [Mass/Vol] 0.4 mg/dL Normal 0.2-1.3 [facility] Comment on above: Order Comment: Speci men Type: BLOOD SPECIMENOrdering Facility: [facility] Address: [address] [place] [address] Performed By: #### 2 4323-8 ####[facility] LABCLIA [id number] [place] [address] [place] Calcium [Mass/Vol] 9.4 mg/dL Normal 8.5-10.2 [facility] Comment on above: Order Comment: Speci men Type: BLOOD SPECIMENOrdering Facility: [facility] Address: [address] [place] [address] Performed By: #### 2 4323-8 ####[facility] LABCLIA [id number] [place] [address] [place] Chloride [Moles/Vol] 102 mmol/L Normal 97-105 [facility] Comment on above: Order Comment: Speci men Type: BLOOD SPECIMENOrdering Facility: [facility] Address: [address] [place] [address] Performed By: #### 2 4323-8 ####[facility] LABCLIA [id number] [place] [address] [place] CO2 [Moles/Vol] 25 mmol/L Normal 22-30 [facility] Comment on above: Order Comment: Speci men Type: BLOOD SPECIMENOrdering Facility: [facility] Address: [address] [address] Performed By: #### 2 4323-8 ####[facility] [id number] [address] STATES OF [facility] Creatinine [Mass/Vol] 0.86 mg/dL Normal 0.73-1.22 [facility] Comment on above: Order Comment: Speci men Type: BLOOD SPECIMENOrdering Facility: [facility] Address: [address] [address] Performed By: #### 2 4323-8 ####[facility] [id number] [address] [place] ESTIMATED GLOMERULAR FILTRATION RATE 89 mL/min/1.73m??? Normal >=60 [facility] Comment on above: Order Comment: Janiei men Type: BLOOD SPECIMENOrdering Facility: [facility] Address: [address] [place] [address] Result Comment: Mariaelena mated Glomerular Filtration Rate [...] actual GFR. Performed By: #### 2 4323-8 ####[facility] [id number] [place] [address] [place] Glucose [Mass/Vol] 166 mg/dL High 74-99 [facility] Comment on above: Order Comment: Portia tay Type: BLOOD SPECIMENOrdering Facility: [facility] Address: [address] [place] [address] Result Comment: The [place] Diabetes Association (ADA) provides guidance for cutoff [...] Standards of Medical Care in Diabetes 2016, [place] [employer]. Diabetes Care. 2016.39(Suppl 1). Performed By: #### 2 4323-8 ####[facility] LABCLIA [id number] [place] [address] [place] Potassium [Moles/Vol] 3.9 mmol/L Normal 3.7-5.1 [facility] Comment on above: Order Comment: Speci men Type: BLOOD SPECIMENOrdering Facility: [facility] Address: [address] [place] [address] Performed By: #### 2 4323-8 ####[facility] LABIA [id number] [place] [address] [place] Protein [Mass/Vol] 6.6 g/dL Normal 6.3-8.0 [facility] Comment on above: Order Comment: Speci men Type: BLOOD SPECIMENOrdering Facility: [facility] Address: [address] [place] [address] Performed By: #### 2 4323-8 ####[facility] LABCLIA [id number] [place] [address] [place] Sodium [Moles/Vol] 140 mmol/L Normal 136-144 [facility] Comment on above: Order Comment: Speci men Type: BLOOD SPECIMENOrdering Facility: [facility] Address: [address] [address] Performed By: #### 2 4323-8 ####[facility] LABCLIA [id number] [place] [address] [place] Urea nitrogen [Mass/Vol] 21 mg/dL Normal 9-24 [facility] Comment on above: Order Comment: Speci men Type: BLOOD SPECIMENOrdering Facility: [facility] Address: [address] Performed By: #### 2 4323-8 ####[facility] LABCLIA [id number] [place] [address] [place] Albumin [Mass/Vol] 3.6 g/dL Low 3.9-4.9 [facility] Comment on above: Order Comment: Speci men Type: BLOOD SPECIMENOrdering Facility: [facility] Address: [address] Performed By: #### 2 4323-8 ####[facility] LABCLIA [id number] [place] [address] [place] ALP [Catalytic activity/Vol] 96 U/L Normal 38-113 [facility] Comment on above: Order Comment: Speci men Type: BLOOD SPECIMENOrdering Facility: [facility] Address: [address] Performed By: #### 2 4323-8 ####[facility] LABCLIA [id number] [place] [address] [place] ALT [Catalytic activity/Vol] 18 U/L Normal 10-54 [facility] Comment on above: Order Comment: Speci men Type: BLOOD SPECIMENOrdering Facility: [facility] Address: [address] [id number] Performed By: #### 2 4323-8 ####[facility] LABCLIA [id number] [place] [address] [place] Anion gap [Moles/Vol] 10 mmol/L Normal 9-18 [facility] Comment on above: Order Comment: Speci men Type: BLOOD SPECIMENOrdering Facility: [facility] Address: [address] Performed By: #### 2 4323-8 ####[facility] LABCLIA [id number] [place] [address] [place] AST [Catalytic activity/Vol] 16 U/L Normal 14-40 [facility] Comment on above: Order Comment: Speci men Type: BLOOD SPECIMENOrdering Facility: [facility] Address: [address] [place] [address] Performed By: #### 2 4323-8 ####[facility] LABCLIA [id number] [place] [address] [place] Bilirubin [Mass/Vol] 0.5 mg/dL Normal 0.2-1.3 [facility] Comment on above: Order Comment: Speci men Type: BLOOD SPECIMENOrdering Facility: [facility] Address: [address] [place] [address] Performed By: #### 2 4323-8 ####[facility] LABCLIA [id number] [place] [address] [place] Calcium [Mass/Vol] 8.7 mg/dL Normal 8.5-10.2 [facility] Comment on above: Order Comment: Speci men Type: BLOOD SPECIMENOrdering Facility: [facility] Address: [address] [place], [place] [address] Performed By: #### 2 4323-8 ####[facility] LABCLIA [id number] [place] [address] [place] Chloride [Moles/Vol] 105 mmol/L Normal 97-105 [facility] Comment on above: Order Comment: Speci men Type: BLOOD SPECIMENOrdering Facility: [facility] Address: [address] [place], [place] [address] Performed By: #### 2 4323-8 ####[facility] LABCLIA [id number] [place] [address] [place] CO2 [Moles/Vol] 24 mmol/L Normal 22-30 [facility] Comment on above: Order Comment: Speci men Type: BLOOD SPECIMENOrdering Facility: [facility] Address: [address] [address] Performed By: #### 2 4323-8 ####[facility] LABIA [id number] [place] [address] [place] Creatinine [Mass/Vol] 0.78 mg/dL Normal 0.73-1.22 [facility] Comment on above: Order Comment: Speci men Type: BLOOD SPECIMENOrdering Facility: [facility] Address: [address] [address] Performed By: #### 2 4323-8 ####[facility] LABIA [id number] [place] [address] [place] ESTIMATED GLOMERULAR FILTRATION RATE 92 mL/min/1.73m??? Normal >=60 [facility] Comment on above: Order Comment: Speci men Type: BLOOD SPECIMENOrdering Facility: [facility] Address: [address] [place] [address] Result Comment: Mariaelena mated Glomerular Filtration Rate [...] actual GFR. Performed By: #### 2 4323-8 ####[facility] LABIA [id number] [place] [address] [place] Glucose [Mass/Vol] 217 mg/dL High 74-99 [facility] Comment on above: Order Comment: Speci men Type: BLOOD SPECIMENOrdering Facility: [facility] Address: [address] [address] Result Comment: The [place] Diabetes Association (ADA) provides guidance for cutoff [...] Standards of Medical Care in Diabetes 2016, [place] [employer]. Diabetes Care. 2016.39(Suppl 1). Performed By: #### 2 4323-8 ####[facility] LABCLIA [id number] [place] [address] [place] Potassium [Moles/Vol] 3.9 mmol/L Normal 3.7-5.1 [facility] Comment on above: Order Comment: Speci men Type: BLOOD SPECIMENOrdering Facility: [facility] Address: [address] [place] [address] Performed By: #### 2 4323-8 ####[facility] LABIA [id number] [place] [address] [place] Protein [Mass/Vol] 5.6 g/dL Low 6.3-8.0 [facility] Comment on above: Order Comment: Speci men Type: BLOOD SPECIMENOrdering Facility: [facility] Address: [address] [address] Performed By: #### 2 4323-8 ####[facility] LABCLIA [id number] [place] [address] [place] Sodium [Moles/Vol] 139 mmol/L Normal 136-144 [facility] Comment on above: Order Comment: Speci men Type: BLOOD SPECIMENOrdering Facility: [facility] Address: [address] [address] Performed By: #### 2 4323-8 ####[facility] LABCLIA [id number] [place] [address] [place] Urea nitrogen [Mass/Vol] 14 mg/dL Normal 9-24 [facility] Comment on above: Order Comment: Speci men Type: BLOOD SPECIMENOrdering Facility: [facility] Address: [address] [place], [place] [address] Performed By: #### 2 4323-8 ####[facility] LABCLIA [id number] [facility] [place] [address] [place] Albumin [Mass/Vol] 3.6 g/dL Low 3.9-4.9 [facility] Comment on above: Order Comment: Speci men Type: BLOOD SPECIMENOrdering Facility: [facility] Address: [address] [place], [place] [address] Performed By: #### 2 777-1, , ####[facility] LABCLIA [id number] [place] [address] [place] ALP [Catalytic activity/Vol] 98 U/L Normal 38-113 [facility] Comment on above: Order Comment: Speci men Type: BLOOD SPECIMENOrdering Facility: [facility] Address: [address] [place], [place] [address] Performed By: #### 2 777-1, , ####[facility] LABCLIA [id number] [facility] [place] [address] [place] ALT [Catalytic activity/Vol] 19 U/L Normal 10-54 [facility] Comment on above: Order Comment: Speci men Type: BLOOD SPECIMENOrdering Facility: [facility] Address: [address] [place], [place] [address] Performed By: #### 2 777-1, , ####[facility] LABCLIA [id number] [facility] [place] [id number] [place] Anion gap [Moles/Vol] 12 mmol/L Normal 9-18 [facility] Comment on above: Order Comment: Speci men Type: BLOOD SPECIMENOrdering Facility: [facility] Address: [address] [place] [address] Performed By: #### 2 777-1, , ####[facility] LABCLIA [id number] [place] [address] [place] AST [Catalytic activity/Vol] 18 U/L Normal 14-40 [facility] Comment on above: Order Comment: Speci men Type: BLOOD SPECIMENOrdering Facility: [facility] Address: [address] [place] [address] Performed By: #### 2 777-1, 15889-5, ####[facility] LABCLIA [id number] [place] [address] [place] Bilirubin [Mass/Vol] 0.7 mg/dL Normal 0.2-1.3 [facility] Comment on above: Order Comment: Speci men Type: BLOOD SPECIMENOrdering Facility: [facility] Address: [address] [place] [address] Performed By: #### 2 777-1, , ####[facility] LABCLIA [id number] [place] [address] [place] Calcium [Mass/Vol] 8.3 mg/dL Low 8.5-10.2 [facility] Comment on above: Order Comment: Speci men Type: BLOOD SPECIMENOrdering Facility: [facility] Address: [address] [place], [place] [address] Performed By: #### 2 777-1, 83794-0, ####[facility] LABCLIA [id number] [place] [address] [place] Chloride [Moles/Vol] 102 mmol/L Normal 97-105 [facility] Comment on above: Order Comment: Speci men Type: BLOOD SPECIMENOrdering Facility: [facility] Address: [address] [address] Performed By: #### 2 777-1, 67724-4, ####[facility] LABCLIA [id number] [place] [address] [place] CO2 [Moles/Vol] 22 mmol/L Normal 22-30 [facility] Comment on above: Order Comment: Speci men Type: BLOOD SPECIMENOrdering Facility: [facility] Address: [address] [place] [address] Performed By: #### 2 777-1, , ####[facility] LABCLIA [id number] [place] [address] [place] Creatinine [Mass/Vol] 0.69 mg/dL Low 0.73-1.22 [facility] Comment on above: Order Comment: Speci men Type: BLOOD SPECIMENOrdering Facility: [facility] Address: [address] [place] [address] Performed By: #### 2 777-1, , ####[facility] LABCLIA [id number] [place] [address] [place] ESTIMATED GLOMERULAR FILTRATION RATE 95 mL/min/1.73m??? Normal >=60 [facility] Comment on above: Order Comment: Speci men Type: BLOOD SPECIMENOrdering Facility: [facility] Address: [address] [place] [address] Result Comment: Mariaelena mated Glomerular Filtration Rate [...] GFR. Performed By: #### 2 777-1, , ####[facility] LABCLIA [id number] [place] [address] [place] Glucose [Mass/Vol] 202 mg/dL High 74-99 [facility] Comment on above: Order Comment: Speci men Type: BLOOD SPECIMENOrdering Facility: [facility] Address: [address] [place] [address] Result Comment: The [place] Diabetes Association (ADA) provides guidance for cutoff [...] Standards of Medical Care in Diabetes 2016, [place] [employer]. Diabetes Care. 2016.39(Suppl 1). Performed By: #### 2 777-1, 76756-6, 88571-5 ####[facility] LABIA [id number] [place] [address] [place] Potassium [Moles/Vol] 4.1 mmol/L Normal 3.7-5.1 [facility] Comment on above: Order Comment: Speci men Type: BLOOD SPECIMENOrdering Facility: [facility] Address: [address] [place], [place] [address] Performed By: #### 2 777-1, 43314-9, 74288-2 ####[facility] LABIA [id number] [place] [address] [place] Protein [Mass/Vol] 5.5 g/dL Low 6.3-8.0 [facility] Comment on above: Order Comment: Speci men Type: BLOOD SPECIMENOrdering Facility: [facility] Address: [address] [place] [address] Performed By: #### 2 777-1, 55863-4, ####[facility] LABCLIA [id number] [place] [address] [place] Sodium [Moles/Vol] 136 mmol/L Normal 136-144 [facility] Comment on above: Order Comment: Speci men Type: BLOOD SPECIMENOrdering Facility: [facility] Address: [address] [place], [place] [address] Performed By: #### 2 777-1, 17600-7, ####[facility] LABIA [id number] [place] [address] [place] Urea nitrogen [Mass/Vol] 14 mg/dL Normal 9-24 [facility] Comment on above: Order Comment: Speci men Type: BLOOD SPECIMENOrdering Facility: [facility] Address: [address] [place] [address] Performed By: #### 2 777-1, 11031-1, ####[facility] LABIA [id number] [place] [address] [place] Albumin [Mass/Vol] 3.0 g/dL Low 3.9-4.9 [facility] Comment on above: Order Comment: Speci men Type: BLOOD SPECIMENOrdering Facility: [facility] Address: [address] [place], [place] [address] Result Comment: Resu lt rechecked. Performed By: #### 1 9123-9, 27708-18, ####[facility] LABIA [id number] [place] [id number] [place] ALP [Catalytic activity/Vol] 88 U/L Normal 38-113 [facility] Comment on above: Order Comment: Speci men Type: BLOOD SPECIMENOrdering Facility: [facility] Address: [address] [place], [place] [address] Performed By: #### 1 9123-9, 27708-18, ####[facility] LABCLIA [id number] [place] [address] [place] ALT [Catalytic activity/Vol] 15 U/L Normal 10-54 [facility] Comment on above: Order Comment: Speci men Type: BLOOD SPECIMENOrdering Facility: [facility] Address: [address] [place] [address] Performed By: #### 1 9123-9, 27708-18, ####[facility] LABCLIA [id number] [place] [address] [place] Anion gap [Moles/Vol] 14 mmol/L Normal 9-18 [facility] Comment on above: Order Comment: Speci men Type: BLOOD SPECIMENOrdering Facility: [facility] Address: [address] [place] [address] Performed By: #### 1 9123-9, 27708-18, ####[facility] LABIA [id number] [place] [address] [place] AST [Catalytic activity/Vol] 16 U/L Normal 14-40 [facility] Comment on above: Order Comment: Speci men Type: BLOOD SPECIMENOrdering Facility: [facility] Address: [address] [place] [address] Performed By: #### 1 9123-9, 27708-18, ####[facility] LABCLIA [id number] [place] [address] [place] Bilirubin [Mass/Vol] 0.6 mg/dL Normal 0.2-1.3 [facility] Comment on above: Order Comment: Speci men Type: BLOOD SPECIMENOrdering Facility: [facility] Address: [address] [place] [address] Performed By: #### 1 9123-9, 27708-18, 15389-4 ####[facility] LABCLIA [id number] [place] [address] [place] Calcium [Mass/Vol] 8.4 mg/dL Low 8.5-10.2 [facility] Comment on above: Order Comment: Speci men Type: BLOOD SPECIMENOrdering Facility: [facility] Address: [address] [place] [address] Performed By: #### 1 9123-9, 2777-, 80856-7 ####[facility] LABCLIA [id number] [place] [address] [place] Chloride [Moles/Vol] 103 mmol/L Normal 97-105 [facility] Comment on above: Order Comment: Speci men Type: BLOOD SPECIMENOrdering Facility: [facility] Address: [address] [place] [address] Performed By: #### 1 9123-9, 27708-18, 94548-7 ####[facility] LABCLIA [id number] [place] [address] [place] CO2 [Moles/Vol] 20 mmol/L Low 22-30 [facility] Comment on above: Order Comment: Speci men Type: BLOOD SPECIMENOrdering Facility: [facility] Address: [address] [place] [address] Performed By: #### 1 9123-9, 27708-18, 95825-8 ####[facility] LABCLIA [id number] [place] [address] [place] Creatinine [Mass/Vol] 0.64 mg/dL Low 0.73-1.22 [facility] Comment on above: Order Comment: Speci men Type: BLOOD SPECIMENOrdering Facility: [facility] Address: [address] [place], [place] [address] Performed By: #### 1 9123-9, 277-, 66670-3 ####[facility] LABCLIA [id number] [place] [address] [place] ESTIMATED GLOMERULAR FILTRATION RATE 98 mL/min/1.73m??? Normal >=60 [facility] Comment on above: Order Comment: Portia tay Type: BLOOD SPECIMENOrdering Facility: [facility] Address: [address] [place] [id number] Result Comment: Mariaelena mated Glomerular Filtration Rate [...] GFR. Performed By: #### 1 9123-9, 2777-, 35181-0 ####[facility] LABCLIA [id number] [place] [address] [place] Glucose [Mass/Vol] 186 mg/dL High 74-99 [facility] Comment on above: Order Comment: Portia tay Type: BLOOD SPECIMENOrdering Facility: [facility] Address: [address] Result Comment: The [place] Diabetes Association (ADA) provides guidance for cutoff [...] Standards of Medical Care in Diabetes 2016, [place] [employer]. Diabetes Care. 2016.39(Suppl 1). Performed By: #### 1 9123-9, 2777-, 58555-0 ####[facility] LABCLIA [id number] [place] [id number] [place] Potassium [Moles/Vol] 4.0 mmol/L Normal 3.7-5.1 [facility] Comment on above: Order Comment: Speci men Type: BLOOD SPECIMENOrdering Facility: [facility] Address: [address] [place] [address] Performed By: #### 1 9123-9, 2776-02, ####[facility] LABCLIA [id number] [facility] [place] [address] [place] Protein [Mass/Vol] 5.1 g/dL Low 6.3-8.0 [facility] Comment on above: Order Comment: Speci men Type: BLOOD SPECIMENOrdering Facility: [facility] Address: [place] [place] [address] Performed By: #### 1 9123-9, 2776-02, ####[facility] LABCLIA [id number] [place] [address] [place] Sodium [Moles/Vol] 137 mmol/L Normal 136-144 [facility] Comment on above: Order Comment: Speci men Type: BLOOD SPECIMENOrdering Facility: [facility] Address: [place] Performed By: #### 1 9123-9, 2776-02, ####[facility] LABIA [id number] [place] [address] [place] Urea nitrogen [Mass/Vol] 12 mg/dL Normal 9-24 [facility] Comment on above: Order Comment: Speci men Type: BLOOD SPECIMENOrdering Facility: [facility] Address: [place] Performed By: #### 1 9123-9, 2776-02, ####[facility] LABCLIA [id number] [facility] [address] [address] [place] ECG COMPLETEon 08-29-2022 ECG COMPLETE Ventricular Rate : 7 0 BPM Atrial Rate : 70 BPM P-R Interval : 186 ms QRS Duration : 102 ms Q-T Interval : 454 ms QTC Calculation(Bazett) : 490 ms Calculated P [place] : 44 degrees Calculated R [place] : -26 degrees Calculated T [place] : -27 degrees SINUS RHYTHM WITH PREMATURE ATRIAL COMPLEXES NONSPECIFIC ST ABNORMALITY ABNORMAL ECG Confirmed by ERICK STEWARD MD ([id number]) on 08/31/2022 7:45:00 AM NAME : OLAF BRIONES PID : [id number] : 1945 Gender : Male Race : Unknown ORD : [id number] Procedure Date : Aug 29 2022 00:07:53 Edit Date : Aug 31 2022 07:45:03 Diagnosis: SINUS RHYTHM WITH PREMATURE ATRIAL COMPLEXES NONSPECIFIC ST ABNORMALITY ABNORMAL ECG Confirmed by ERICK STEWARD MD (65) on 08/31/2022 7:45:00 AM Test Reason : Post-OP Location : [address] [place], [place] [address] Overread By : ERICK STEWARD MD Edited By : ERICK STEWARD MD Referred By : , Acquired by : NAHOMI RINALDI [facility] Magnesium SerPl-ncon 08-29 Magnesium [Mass/Vol] 2.1 mg/dL Normal 1.7-2.3 [facility] Comment on above: Order Comment: Speci men Type: BLOOD SPECIMENOrdering Facility: [facility] Address: [address] [place], [place] [address] Performed By: #### 2 777-1, 67006-9, 27431-0 ####[facility] LABIA [id number] [address] STATES OF [facility] Magnesium [Mass/Vol] 1.8 mg/dL Normal 1.7-2.3 [facility] Comment on above: Order Comment: Speci men Type: BLOOD SPECIMENOrdering Facility: [facility] Address: [address] [place], [place] [phone] Performed By: #### 1 9123-9, 2777-1, 59508-6 ####[facility] LABCLIA [id number] [address] [address] [place] PT panel Coag (PPP)on 2022 INR Coag (PPP) [Relative time] 1.0 {INR} Normal 0.9-1.3 [facility] Comment on above: Order Comment: Portia tay Type: BLOOD SPECIMENOrdering Facility: [facility] Address: [address] [place] [address] Result Comment: Mago min K Antagonist (VKA) Therapeutic Range: INR 2 to 3 (Target INR of 2.5) Note: For patients treated with VKA drugs, such as warfarin, the [place] [employer] 2012 Guideline recommends [...] Chest 2012, 141:7S-47S Daniel RA, et al. [facility] 2017, 70: 252-289 Performed By: #### 3 4528-0, 36027-7 ####[facility] LABIA [id number] [place] [address] [place] PT Coag (PPP) [Time] 10.7 s Normal 9.7-13.0 [facility] Comment on above: Order Comment: Portia tay Type: BLOOD SPECIMENOrdering Facility: [facility] Address: [address] [place] [address] Performed By: #### 3 4528-0, 77327-6 ####[facility] LABIA [id number] [address] [place] INR Coag (PPP) [Relative time] 1.1 {INR} Normal 0.9-1.3 [facility] Comment on above: Order Comment: Portia tay Type: BLOOD SPECIMENOrdering Facility: [facility] Address: [address] [place] [id number] Result Comment: Mago min K Antagonist (VKA) Therapeutic Range: INR 2 to 3 (Target INR of 2.5) Note: For patients treated with VKA drugs, such as warfarin, the [place] [employer] 2012 Guideline recommends [...] Chest 2012, 141:7S-47S Daniel RA, et al. [facility] 2017, 70: 252-289 Performed By: #### 3 4528-0, 53380-4 ####[facility] [id number] [place] [address] [place] PT Coag (PPP) [Time] 11.2 s Normal 9.7-13.0 [facility] Comment on above: Order Comment: Speci men Type: BLOOD SPECIMENOrdering Facility: [facility] Address: [address] [place], [place] [address] Performed By: #### 3 4528-0, 32475-6 ####[facility] [id number] [place] [id number] [place] Phosphate SerPl-mCncon 08-29 Phosphate [Mass/Vol] 4.9 mg/dL High 2.7-4.8 [facility] Comment on above: Order Comment: Janiei jasvir Type: BLOOD SPECIMENOrdering Facility: [facility] Address: [address] [place], [place] [phone] Performed By: #### 2 777-1, 67824-5, 60102-8 ####[facility] LABCLIA [id number] [facility] [place] [address] [place] Phosphate [Mass/Vol] 4.2 mg/dL Normal 2.7-4.8 [facility] Comment on above: Order Comment: Speci men Type: BLOOD SPECIMENOrdering Facility: [facility] Address: [address] [place] [address] Performed By: #### 1 9123-9, 2777-1, 31899-4 ####[facility] LABCLIA [id number] [facility] [place] [place] [address] [place] THERAPY NTon 08-29-2022 THERAPY NT HNO ID: [id number] Author: Jenna Duggan, PT Service: Physical Therapy Author Type: Physical Therapist Type: Therapy (PT/OT/Speech/Resp) Filed: 08/29/2022 2:51 PM Note Text: Physical Therapy Evaluation SERVICE DATE: 08/29/2022 SERVICE TIME: 1403 to 1438 ROOM: [place] [address] Recommended Discharge Disposition: Home Anticipated Discharge Needs: [...] HLD, DM, recent STEMI (08/20/2022), transferred from [facility] for gross hematuria. Currently with 18Fr 3-way catheter on CBI. 08/28/22: s/p cystoscopy, clot evacuation, cystolitholapaxy, TURP. Admitted to SICU postoperatively due to pressor requirements and risk of hyponatremia due to length of TURP. 22Fr [address] hernandez placed introp, on traction and CBI. Reason for Hospital Admission: Pt 77y/o male transferred from [facility] for gross hematuria secondary to recent [...] General Deviations/Observations: Diana decreased, Flexed trunk posture -[facility]: 7: Walk 25 feet or more [...] Reduced mobility-other Interventions Provided: Evaluation, Therapeutic Activity (55188), Gait Training (12711) $ Evaluation-Moderate (13151) Billed Units: 1 unit Therapeutic Activity (82702) Treatment Minutes: 7 $ Therapeutic Activity (70572) Billed Units: 0 units Gait Training (71816) Treatment Minutes: 13 $ Gait Training (37063) Billed Units: 1 unit Training AND Education Provided in: Benefits of In-Hospital Mobility, Bed Mobility, Energy Conservation, Equipment, Exer (more content not included)... Normal [facility] THERAPY NT HNO ID: [id number] Author: Alia Smith OTR/L Service: Occupational Therapy Author Type: Occupational Therapist Type: Therapy (PT/OT/Speech/Resp) Filed: 08/29/2022 11:06 AM Note Text: Occupational Therapy Evaluation SERVICE DATE: 08/29/2022 SERVICE TIME: 0850 to 0921 ROOM: [place] [address] Recommended Discharge Disposition: Home Anticipated Discharge Needs: [...] HLD, DM, recent STEMI (08/20/2022), transferred from [facility] for gross hematuria. Currently with 18Fr 3-way catheter on CBI. 08/28/22: s/p cystoscopy, clot evacuation, cystolitholapaxy, TURP. Admitted to SICU postoperatively due to pressor requirements and risk of hyponatremia due to length of TURP. 22Fr [address] hernandez placed introp, on traction and CBI. 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 Normal [facility] aPTT PPPon 08-29-2022 aPTT Coag (PPP) [Time] 21.0 s Low 23.0-32.4 [facility] Comment on above: Order Comment: Speci men Type: BLOOD SPECIMENOrdering Facility: [facility] Address: [address] [place] [address] Performed By: #### 3 4528-0, 19774-1 ####[facility] [id number] [address] aPTT Coag (PPP) [Time] 26.1 s Normal 23.0-32.4 [facility] Comment on above: Order Comment: Speci men Type: BLOOD SPECIMENOrdering Facility: [facility] Address: [address] [place] [address] Performed By: #### 3 4528-0, 46811-9 ####[facility] [id number] [address] OF [facility] ANES POSTPROC EVALon 023 ANES POSTPROC EVAL HNO ID: [id number] Author: Michelle Day MD Service: ? Author Type: Anesthesiologist Type: Anesthesia Postprocedure Evaluation Filed: 08/28/2022 8:38 PM Note Text: POST ANESTHESIA EVALUATION NOTE : 1945 Procedure Summary Date: 08/28/22 Room / Location: [address] [facility] Anesthesia Start: 1752 Anesthesia [...] August 28, 2022 TIME: 8:37 PM CSN: [id number] Normal [facility] ANES PRE-OPon 08-28-2022 ANES PRE-OP HNO ID: [id number] Author: Weston Avila MD Service: ? Author Type: Anesthesiologist Type: Anesthesia Preprocedure Evaluation Filed: 08/28/2022 6:10 PM Note Text: ANESTHESIOLOGY DAY OF SURGERY NOTE : 1945 Procedure Information Anesthesia Start Date/Time: 08/28/221752 Procedure: CYSTOURETHROSCOPY FULGURATION BLADDER (Bladder) Location: [place] [address] / [facility] Surgeons: David Andrews MD Estimated body mass index is 25.23 kg/m? as calculated from the following: Height as of this encounter: 173 cm (5' 8.11 ). Weight as of this encounter: 75.5 kg (166 lb 7.2 oz). 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 Normal [facility] ANES PREOPon 08-28-2022 ANES PREOP HNO ID: [id number] Author: Jaycee Bernard MD Service: Anesthesiology Author [...] (166 lb 7.2 oz) REVIEW OF SYSTEMS: ALIGNING CHECKER: no history of ALIGNING CHECKER disease RESP: no history of pulmonary disease, no smoking history CARD: history of HTN on norvasc and coreg; and history of past [place] s/p JUHI (08/20/22); currently no chest pain [...] done. L (more content not included)... Normal [facility] BRIEF OP NOTon 08-28-2022 BRIEF OP NOT HNO ID: [id number] Author: Gt Mcgowan MD Service: Urology Author Type: Resident Type: Brief Op Note Filed: 08/28/2022 7:50 PM Note Text: BRIEF OP NOTE LOG ID: [id number] Surgery/Procedure Date: 08/28/2022 Incision/Procedure Start Time: 6:17 PM Incision Close/Procedure End Time: Surgeon(s)/Proceduralist(s ) and Social Research Assistant(s): Surgeon(s) and Role: * David Andrews [...] 2022 TIME: 7:48 PM PAGER/CONTACT #: [phone] Post-op Plan: To SICU Normal [facility] Basic metabolic 2000 panelon 08-28-2022 Anion gap [Moles/Vol] 9 mmol/L Normal 9-18 [facility] Comment on above: Order Comment: Speci men Type: BLOOD SPECIMENOrdering Facility: [facility] Address: [address] [place] [address] Performed By: #### 2 4321-2 ####[facility] LABCLIA [id number] [place] [address] [place] Calcium [Mass/Vol] 8.8 mg/dL Normal 8.5-10.2 [facility] Comment on above: Order Comment: Speci men Type: BLOOD SPECIMENOrdering Facility: [facility] Address: [address] [place] [address] Performed By: #### 2 4321-2 ####[facility] LABCLIA [id number] [place] [address] [place] Chloride [Moles/Vol] 108 mmol/L High 97-105 [facility] Comment on above: Order Comment: Speci men Type: BLOOD SPECIMENOrdering Facility: [facility] Address: [address] [place] [address] Performed By: #### 2 4321-2 ####[facility] LABCLIA [id number] [place] [address] [place] CO2 [Moles/Vol] 24 mmol/L Normal 22-30 [facility] Comment on above: Order Comment: Speci men Type: BLOOD SPECIMENOrdering Facility: [facility] Address: [address] [place] [address] Performed By: #### 2 4321-2 ####[facility] LABIA [id number] [address] STATES OF [facility] Creatinine [Mass/Vol] 0.79 mg/dL Normal 0.73-1.22 [facility] Comment on above: Order Comment: Speci men Type: BLOOD SPECIMENOrdering Facility: [facility] Address: [address] [place] [address] Performed By: #### 2 4321-2 ####[facility] LABIA [id number] [address] [place] ESTIMATED GLOMERULAR FILTRATION RATE 91 mL/min/1.73m??? Normal >=60 [facility] Comment on above: Order Comment: Speci men Type: BLOOD SPECIMENOrdering Facility: [facility] Address: [address] [place] [address] Result Comment: Mariaelena mated Glomerular Filtration Rate [...] actual GFR. Performed By: #### 2 4321-2 ####[facility] LABIA [id number] [place] [address] [place] Glucose [Mass/Vol] 137 mg/dL High 74-99 [facility] Comment on above: Order Comment: Speci men Type: BLOOD SPECIMENOrdering Facility: [facility] Address: [address] [place] [address] Result Comment: The [place] Diabetes Association (ADA) provides guidance for cutoff [...] Standards of Medical Care in Diabetes 2016, [place] [employer]. Diabetes Care. 2016.39(Suppl 1). Performed By: #### 2 4321-2 ####[facility] LABCLIA [id number] [place] [address] [place] Potassium [Moles/Vol] 4.0 mmol/L Normal 3.7-5.1 [facility] Comment on above: Order Comment: Speci men Type: BLOOD SPECIMENOrdering Facility: [facility] Address: [address] [place] [address] Performed By: #### 2 4321-2 ####[facility] LABIA [id number] [place] [address] [place] Sodium [Moles/Vol] 141 mmol/L Normal 136-144 [facility] Comment on above: Order Comment: Speci men Type: BLOOD SPECIMENOrdering Facility: [facility] Address: [address] [place] [address] Performed By: #### 2 4321-2 ####[facility] LABIA [id number] [place] [address] [place] Urea nitrogen [Mass/Vol] 18 mg/dL Normal 9-24 [facility] Comment on above: Order Comment: Speci men Type: BLOOD SPECIMENOrdering Facility: [facility] Address: [address] [place] [address] Performed By: #### 2 4321-2 ####[facility] LABIA [id number] [place] [address] [place] CALCULI ANALYSISon 3 Calculus analysis [Interp] Normal [facility] Comment on above: Order Comment: Speci men Type: CALCULUS SPECIMENOrdering Facility: [facility] Address: [address] [place] [address] Result Comment: This test was developed and its performance characteristics determined by [facility] Pathology and Laboratory Medicine [place] ([facility]). It has not been cleared or approved by the FDA. [facility] is regulated under CLIA as qualified to perform high-complexity testing. This test is used for clinical purposes. It should not be regarded as investigational or for research. Performed By: #### C SA ####[facility] LABIA [id number] [address] CALCULUS COLOR BROWN Normal [facility] Comment on above: Order Comment: Speci men Type: CALCULUS SPECIMENOrdering Facility: [facility] Address: [address] [place] [address] Performed By: #### C SA ####[facility] LABCLIA [id number] [address] CALCULUS COMPOSITION 1 50% Calcium Oxala te Monohydrate Normal [facility] Comment on above: Order Comment: Speci men Type: CALCULUS SPECIMENOrdering Facility: [facility] Address: [address] [place] [address] Performed By: #### C SA ####[facility] LABCLIA [id number] [address] OF [facility] CALCULUS COMPOSITION 2 40% Calcium Oxala te Dihydrate Normal [facility] Comment on above: Order Comment: Speci men Type: CALCULUS SPECIMENOrdering Facility: [facility] Address: [address] [place] [address] Performed By: #### C SA ####[facility] LABIA [id number] [address] OF [facility] CALCULUS COMPOSITION 3 10% Minor Components Normal [facility] Comment on above: Order Comment: Speci men Type: CALCULUS SPECIMENOrdering Facility: [facility] Address: [address] [address] Performed By: #### C SA ####[facility] LABIA [id number] [address] CALCULUS SIZE AND WT 0.4 X 0.3 X 0.1 CM 0.0163 GRAMS Normal [facility] Comment on above: Order Comment: Speci men Type: CALCULUS SPECIMENOrdering Facility: [facility] Address: [address] [place] [address] Performed By: #### C SA ####[facility] LABIA [id number] [address] [place] CALCULUS TYPE Calculus, CALCULI/CALCULUS Normal [facility] Comment on above: Order Comment: Speci men Type: CALCULUS SPECIMENOrdering Facility: [facility] Address: [address] [place] [address] Performed By: #### C SA ####[facility] [id number] [place] [address] [place] CBC panel Auto (Bld)on 08-28 Erythrocyte distribution width (RBC) [Ratio] 12.7 % Normal 11.5-15.0 [facility] Comment on above: Order Comment: Speci men Type: BLOOD SPECIMENOrdering Facility: [facility] Address: [address] [place] [address] Performed By: #### 5 8410-2 ####[facility] [id number] [place] [address] [place] Hematocrit (Bld) [Volume fraction] 35.7 % Low 39.0-51.0 [facility] Comment on above: Order Comment: Speci men Type: BLOOD SPECIMENOrdering Facility: [facility] Address: [address] [place] [address] Performed By: #### 5 8410-2 ####[facility] LABIA [id number] [place] [address] [place] [place] Hemoglobin (Bld) [Mass/Vol] 12.1 g/dL Low 13.0-17.0 [facility] Comment on above: Order Comment: Speci men Type: BLOOD SPECIMENOrdering Facility: [facility] Address: [address] [place] [address] Performed By: #### 5 8410-2 ####[facility] LABIA [id number] [place] [address] [place] MCH (RBC) [Entitic mass] 31.8 pg Normal 26.0-34.0 [facility] Comment on above: Order Comment: Speci men Type: BLOOD SPECIMENOrdering Facility: [facility] Address: [address] [place] [address] Performed By: #### 5 8410-2 ####[facility] [id number] [address] STATES OF [facility] MCHC (RBC) [Mass/Vol] 33.9 g/dL Normal 30.5-36.0 [facility] Comment on above: Order Comment: Speci men Type: BLOOD SPECIMENOrdering Facility: [facility] Address: [address] [place] [address] Performed By: #### 5 8410-2 ####[facility]GIFF[facility] [id number] [address] STATES OF [place] MCV (RBC) [Entitic vol] 93.7 fL Normal 80.0-100.0 [facility] Comment on above: Order Comment: Speci men Type: BLOOD SPECIMENOrdering Facility: [facility] Address: [address] [place] [address] Performed By: #### 5 8410-2 ####[facility]GIFF[facility] [id number] [address] [address] [place] Nucleated RBC (Bld) [#/Vol] 10*3/uL Normal <0.01 [facility] Comment on above: Order Comment: Speci men Type: BLOOD SPECIMENOrdering Facility: [facility] Address: [address] [place], [place] [address] Performed By: #### 5 8410-2 ####[facility] LABCLIA [id number] [place] [address] [place] Platelet mean volume (Bld) [Entitic vol] 11.3 fL Normal 9.0-12.7 [facility] Comment on above: Order Comment: Speci men Type: BLOOD SPECIMENOrdering Facility: [facility] Address: [address] [place], [place] [address] Performed By: #### 5 8410-2 ####[facility] LABCLIA [id number] [place] [address] [place] Platelets (Bld) [#/Vol] 179 10*3/uL Normal 150-400 [facility] Comment on above: Order Comment: Speci men Type: BLOOD SPECIMENOrdering Facility: [facility] Address: [address] [place], [place] [address] Performed By: #### 5 8410-2 ####[facility] LABIA [id number] [place] [address] [place] RBC (Bld) [#/Vol] 3.81 10*6/uL Low 4.20-6.00 [facility] Comment on above: Order Comment: Speci men Type: BLOOD SPECIMENOrdering Facility: [facility] Address: [address] [place], [place] [address] Performed By: #### 5 8410-2 ####[facility] LABCLIA [id number] [place] [address] [place] WBC (Bld) [#/Vol] 16.02 10*3/uL High 3.70-11.00 [facility] Comment on above: Order Comment: Speci men Type: BLOOD SPECIMENOrdering Facility: [facility] Address: [address] [address] Performed By: #### 5 8410-2 ####[facility] LABIA [id number] [address] STATES OF [place] Erythrocyte distribution width (RBC) [Ratio] 12.8 % Normal 11.5-15.0 [facility] Comment on above: Order Comment: Speci men Type: BLOOD SPECIMENOrdering Facility: [facility] Address: [address] [place] [address] Performed By: #### 5 8410-2 ####[facility] LABIA [id number] [address] STATES OF [place] Hematocrit (Bld) [Volume fraction] 32.6 % Low 39.0-51.0 [facility] Comment on above: Order Comment: Speci men Type: BLOOD SPECIMENOrdering Facility: [facility] Address: [address] [place] [address] Performed By: #### 5 8410-2 ####[facility] LABIA [id number] [place] [address] [place] Hemoglobin (Bld) [Mass/Vol] 11.1 g/dL Low 13.0-17.0 [facility] Comment on above: Order Comment: Speci men Type: BLOOD SPECIMENOrdering Facility: [facility] Address: [address] [place], [place] [address] Performed By: #### 5 8410-2 ####[facility] LABIA [id number] [place] [address] [place] MCH (RBC) [Entitic mass] 31.6 pg Normal 26.0-34.0 [facility] Comment on above: Order Comment: Speci men Type: BLOOD SPECIMENOrdering Facility: [facility] Address: [address] [place], [place] [address] Performed By: #### 5 8410-2 ####[facility] LABIA [id number] [address] STATES [facility] MCHC (RBC) [Mass/Vol] 34.0 g/dL Normal 30.5-36.0 [facility] Comment on above: Order Comment: Speci men Type: BLOOD SPECIMENOrdering Facility: [facility] Address: [address] [place] [address] Performed By: #### 5 8410-2 ####[facility] LABIA [id number] [address] STATES OF [place] MCV (RBC) [Entitic vol] 92.9 fL Normal 80.0-100.0 [facility] Comment on above: Order Comment: Speci men Type: BLOOD SPECIMENOrdering Facility: [facility] Address: [address] [place], [place] [address] Performed By: #### 5 8410-2 ####[facility] [id number] [address] STATES [facility] Nucleated RBC (Bld) [#/Vol] 10*3/uL Normal <0.01 [facility] Comment on above: Order Comment: Speci men Type: BLOOD SPECIMENOrdering Facility: [facility] Address: [address] [place] [address] Performed By: #### 5 8410-2 ####[facility] LABIA [id number] [address] STATES [facility] Platelet mean volume (Bld) [Entitic vol] 11.2 fL Normal 9.0-12.7 [facility] Comment on above: Order Comment: Speci men Type: BLOOD SPECIMENOrdering Facility: [facility] Address: [address] [place], [place] [address] Performed By: #### 5 8410-2 ####[facility] LABIA [id number] [address] OF [place] Platelets (Bld) [#/Vol] 172 10*3/uL Normal 150-400 [facility] Comment on above: Order Comment: Speci men Type: BLOOD SPECIMENOrdering Facility: [facility] Address: [address] [place] [address] Performed By: #### 5 8410-2 ####[facility] LABCLIA [id number] [place] [address] [place] RBC (Bld) [#/Vol] 3.51 10*6/uL Low 4.20-6.00 [facility] Comment on above: Order Comment: Speci men Type: BLOOD SPECIMENOrdering Facility: [facility] Address: [address] [place] [address] Performed By: #### 5 8410-2 ####[facility] LABCLIA [id number] [place] [address] [place] [facility] WBC (Bld) [#/Vol] 11.53 10*3/uL High 3.70-11.00 [facility] Comment on above: Order Comment: Speci men Type: BLOOD SPECIMENOrdering Facility: [facility] Address: [address] [place] [address] Performed By: #### 5 8410-2 ####[facility] LABCLIA [id number] [address] OF [facility] CONSULT PROGon 08-28-2022 CONSULT PROG HNO ID: [id number] Author: Uzma Bates MD Service: Cardiovascular Medicine [...] 08/28/2022 1045 Gross per 24 hour Intake 41660.5 ml Output 30858 ml Net -08750.5 ml TELEMETRY: DATA: Laboratory: Recent Labs 08/28/22 [...] (2000) and TURP (2006) who presented to [facility] ED 08/26/22 for development of gross hematuria with lower pelvic pain x2 days. He was found to have elevated WBC with + UA, and started on IV atbx. He was transferred to [facility] 08/27 for further management. He was [...] RCRI score is 1 for hx of [place], making him a class II risk. This equates to a 6.0% 30-day risk of , [place], or cardiac arrest. Pt denies any cardiac complaints. Per Dr. Bates, no absolute contraindication to proceeding with urologic p (more content not included)... Normal [facility] Comprehensive metabolic 2000 panelon 08-28-2022 Albumin [Mass/Vol] 4.1 g/dL Normal 3.9-4.9 [facility] Comment on above: Order Comment: Speci men Type: BLOOD SPECIMENOrdering Facility: [facility] Address: [address] [id number] Performed By: #### 1 9123-9, 29783-9, 27708-18 ####[facility] LABIA [id number] [place] [address] [place] ALP [Catalytic activity/Vol] 119 U/L High 38-113 [facility] Comment on above: Order Comment: Speci men Type: BLOOD SPECIMENOrdering Facility: [facility] Address: [address] [id number] Performed By: #### 1 9123-9, 41645-9, 2777 ####[facility] LABCLIA [id number] [place] [address] [place] ALT [Catalytic activity/Vol] 23 U/L Normal 10-54 [facility] Comment on above: Order Comment: Speci men Type: BLOOD SPECIMENOrdering Facility: [facility] Address: [address] [place] [address] Performed By: #### 1 9123-9, 03668-6, 277- ####[facility] LABCLIA [id number] [place] [address] [place] Anion gap [Moles/Vol] 10 mmol/L Normal 9-18 [facility] Comment on above: Order Comment: Speci men Type: BLOOD SPECIMENOrdering Facility: [facility] Address: [address] [place] [address] Performed By: #### 1 9123-9, 01036-3, 27708-18 ####[facility] LABCLIA [id number] [place] [address] [place] AST [Catalytic activity/Vol] 21 U/L Normal 14-40 [facility] Comment on above: Order Comment: Speci men Type: BLOOD SPECIMENOrdering Facility: [facility] Address: [address] [place] [address] Performed By: #### 1 9123-9, 10637-4, 27708-18 ####[facility] LABCLIA [id number] [place] [address] [place] Bilirubin [Mass/Vol] 1.1 mg/dL Normal 0.2-1.3 [facility] Comment on above: Order Comment: Speci men Type: BLOOD SPECIMENOrdering Facility: [facility] Address: [address] [place] [address] Performed By: #### 1 9123-9, 04009-4, 277- ####[facility] LABCLIA [id number] [place] [address] [place] Calcium [Mass/Vol] 9.1 mg/dL Normal 8.5-10.2 [facility] Comment on above: Order Comment: Speci men Type: BLOOD SPECIMENOrdering Facility: [facility] Address: [address] [address] Performed By: #### 1 9123-9, 94673-5, 2777- ####[facility] LABCLIA [id number] [place] [address] [place] Chloride [Moles/Vol] 105 mmol/L Normal 97-105 [facility] Comment on above: Order Comment: Speci men Type: BLOOD SPECIMENOrdering Facility: [facility] Address: [address] [address] Performed By: #### 1 9123-9, 40918-7, 2777- ####[facility] LABCLIA [id number] [place] [address] [place] CO2 [Moles/Vol] 24 mmol/L Normal 22-30 [facility] Comment on above: Order Comment: Speci men Type: BLOOD SPECIMENOrdering Facility: [facility] Address: [address] [place] [address] Performed By: #### 1 9123-9, 37854-9, 2777- ####[facility] LABCLIA [id number] [place] [address] [place] Creatinine [Mass/Vol] 0.76 mg/dL Normal 0.73-1.22 [facility] Comment on above: Order Comment: Speci men Type: BLOOD SPECIMENOrdering Facility: [facility] Address: [address] [place], [place] [address] Performed By: #### 1 9123-9, 82870-7, 2777- ####[facility] LABIA [id number] [place] [address] [place] ESTIMATED GLOMERULAR FILTRATION RATE 93 mL/min/1.73m??? Normal >=60 [facility] Comment on above: Order Comment: Speci men Type: BLOOD SPECIMENOrdering Facility: [facility] Address: [address] [place], [place] [address] Result Comment: Mariaelena mated Glomerular Filtration Rate [...] actual GFR. Performed By: #### 1 9123-9, 05696-3, 277- ####[facility] LABCLIA [id number] [address] [address] [place] Glucose [Mass/Vol] 147 mg/dL High 74-99 [facility] Comment on above: Order Comment: Portia tay Type: BLOOD SPECIMENOrdering Facility: [facility] Address: [address] [id number] Result Comment: The [place] Diabetes Association (ADA) provides guidance for cutoff [...] Standards of Medical Care in Diabetes 2016, [place] [employer]. Diabetes Care. 2016.39(Suppl 1). Performed By: #### 1 9123-9, 73580-6, 2776-02 ####[facility] LABIA [id number] [address] [address] [place] Potassium [Moles/Vol] 4.2 mmol/L Normal 3.7-5.1 [facility] Comment on above: Order Comment: Portia tay Type: BLOOD SPECIMENOrdering Facility: [facility] Address: [address] [place] [address] Performed By: #### 1 9123-9, 81729-0, 1 ####[facility] LABCLIA [id number] [place] [address] [place] Protein [Mass/Vol] 6.6 g/dL Normal 6.3-8.0 [facility] Comment on above: Order Comment: Speci men Type: BLOOD SPECIMENOrdering Facility: [facility] Address: [address] [place] [address] Performed By: #### 1 9123-9, 22621-6, 2777 ####[facility] LABIA [id number] [place] [address] [place] Sodium [Moles/Vol] 139 mmol/L Normal 136-144 [facility] Comment on above: Order Comment: Speci men Type: BLOOD SPECIMENOrdering Facility: [facility] Address: [address] [place] [address] Performed By: #### 1 9123-9, 53174-8, 2777 ####[facility] LABIA [id number] [place] [address] [place] Urea nitrogen [Mass/Vol] 14 mg/dL Normal 9-24 [facility] Comment on above: Order Comment: Speci men Type: BLOOD SPECIMENOrdering Facility: [facility] Address: [address] [place] [address] Performed By: #### 1 9123-9, 46088-2, 2777 ####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 Ordering physician: DAVID ANDREWS Indication: Evaluation of [...] * * Final * * * CC [employer] Medical Image : [id number] Normal [facility] HISTORY PHYSICALon HISTORY PHYSICAL HNO ID: [id number] Author: Earnest Portillo MD Service: Critical Care Author Type: Physician Type: HANDP Filed: 08/28/2022 10:48 PM Note Text: SERVICE DATE: 08/28/2022 SERVICE TIME: 9:49 PM SICU HANDP NOTE HPI: Olaf Briones is a 77 year old male with PMHx of recent STEMI on 08/20/22 (s/p JUHI),HTN, HLD, DM, nephrolithiasis, transferred from [facility] for gross hematuria. 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 Normal [facility] Magnesium SerPl-mCncon 08-28 Magnesium [Mass/Vol] 2.1 mg/dL Normal 1.7-2.3 [facility] Comment on above: Order Comment: Speci men Type: BLOOD SPECIMENOrdering Facility: [facility] Address: [address] [place] [address] Performed By: #### 1 9123-9, 35280-8, 2777-1 ####[facility] LABCLIA [id number] [facility] [address] OPERATIVE NOon 08-28-2022 OPERATIVE NO HNO ID: [id number] Author: David Andrews MD Service: Urology Author Type: Physician Type: Operative Report Filed: 08/28/2022 8:20 PM Note Text: OPERATIVE/PROCEDURE REPORT LOG ID: [id number] Surgery/Procedure Date: 08/28/2022 Incision/Procedure Start Time: 6:17 PM Incision Close/Procedure End Time: 7:50 PM Surgeon(s)/Proceduralist(s ) and Social Research Assistant(s): Surgeon(s) and Role: * David Andrews [...] cold cup biopsy forceps as a stone physician/allergy/immunology to allow for the stone to be [...] dictating on behalf of David Andrews MD [facility] STAFF PHYSICIAN NOTE OF PE (more content not included)... Normal [facility] Phosphate SerPl-ncon 08-28 Phosphate [Mass/Vol] 2.9 mg/dL Normal 2.7-4.8 [facility] Comment on above: Order Comment: Speci men Type: BLOOD SPECIMENOrdering Facility: [facility] Address: [address] [id number] Performed By: #### 1 9123-9, 80740-2, 2777-1 ####[facility] LABCLIA [id number] [place] [address] [place] SURGICAL PATHOLOGYon 023 CASE REPORT Normal [facility] Comment on above: Order Comment: Speci men Type: TISSUE SPECIMENOrdering Facility: [facility] Address: [address] [place] [address] Result Comment: Surg [facility] Pathology Report Case: [id number] Authorizing Provider: David Andrews MD Collected: 08/28/2022 06:54 PM Ordering Location: Admitting Received: 08/29/2022 07:58 AM Pathologist: Gal Poon MD Specimens: A) - PROSTATE TISSUE (CHIPS) B) - PROSTATE TISSUE (CHIPS), #2 Performed By: #### S ####[facility] LABCLIA [id number] [address] OF [facility] CLINICAL HISTORY Normal [facility] Comment on above: Order Comment: Speci men Type: TISSUE SPECIMENOrdering Facility: [facility] Address: [address] [place] [address] Result Comment: Pre- op diagnosis: Hematuria [R31.9] Performed By: #### S ####[facility] LABCLIA [id number] [address] FINAL DIAGNOSIS Normal [facility] Comment on above: Order Comment: Speci men Type: TISSUE SPECIMENOrdering Facility: [facility] Address: [address] [place] [address] Result Comment: AAltagracia Teixeira rostate, transurethral resection: - Benign prostatic hyperplasia. A. 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 Performed By: #### S ####[facility] LABCLIA [id number] [address] FINAL PERFORMING LAB Normal [facility] Comment on above: Order Comment: Speci men Type: TISSUE SPECIMENOrdering Facility: [facility] Address: [address] [place] [address] Result Comment: Diag nostic interpretation performed at [facility], [address] [address] CLIA# [id number] Glove Cutter: Jacob Urias M.D. Performed By: #### S ####[facility] [id number] [place] [address] [place] GROSS DESCRIPTION Normal [facility] Comment on above: Order Comment: Speci men Type: TISSUE SPECIMENOrdering Facility: [facility] Address: [address] [address] Result Comment: A. P ROSTATE TISSUE (CHIPS) [...] in cassette B1. Gross examination performed at [facility], [address] 08/29/2022 2:10 PM Performed By: #### S ####[facility] [id number] [place] [address] [place] VENOUS BLOOD GASES WITH IONI ZED MAGNESIUMon 08-28-2022 BASE DEFICIT, VENOUS -1 mmol/L Normal -2-0 [facility] Comment on above: Order Comment: Speci men Type: VENOUS BLOOD SPECIMENOrdering Facility: [facility] Address: [address] [address] Performed By: #### V ALLMG ####[facility] [id number] [place] [address] [place] Calcium.ionized (Bld) [Mass/Vol] 1.19 mmol/L Normal 1.08-1.30 [facility] Comment on above: Order Comment: Speci men Type: VENOUS BLOOD SPECIMENOrdering Facility: [facility] Address: [address] Performed By: #### V ALLMG ####[facility] [id number] [place] [address] [place] Calcium.ionized adjusted to pH 7.4 (BldA) [Moles/Vol] 1.18 mmol/L Normal 1.08-1.30 [facility] Comment on above: Order Comment: Speci men Type: VENOUS BLOOD SPECIMENOrdering Facility: [facility] Address: [address] [address] Performed By: #### V ALLMG ####[facility] [id number] [place] [address] [place] Carboxyhemoglobin (BldV) [Mass fraction] 1.9 % Normal 0.0-2.0 [facility] Comment on above: Order Comment: Speci men Type: VENOUS BLOOD SPECIMENOrdering Facility: [facility] Address: [address] [address] Result Comment: Carb oxyhemoglobin Reference Range for Smokers: 2.0-8.0% Performed By: #### V ALLMG ####[facility] [id number] [place] [address] [place] CO2 (BldV) [Partial pressure] 40 mm[Hg] Low 42-55 [facility] Comment on above: Order Comment: Speci men Type: VENOUS BLOOD SPECIMENOrdering Facility: [facility] Address: [address] Performed By: #### V ALLMG ####[facility] [id number] [place] [address] [place] CO2 [Moles/Vol] 25 mmol/L Normal 25-29 [facility] Comment on above: Order Comment: Speci men Type: VENOUS BLOOD SPECIMENOrdering Facility: [facility] Address: [address] Performed By: #### V ALLMG ####[facility] LABCLIA [id number] [place] [address] [place] CO2 adjusted to patient's actual temperature (BldV) [Partial pressure] 40 mmHg Low 42-55 [facility] Comment on above: Order Comment: Speci men Type: VENOUS BLOOD SPECIMENOrdering Facility: [facility] Address: [address] [place] [address] Performed By: #### V ALLMG ####[facility] LABCLIA [id number] [place] [address] [place] Glucose [Mass/Vol] 120 mg/dL High 60-105 [facility] Comment on above: Order Comment: Speci men Type: VENOUS BLOOD SPECIMENOrdering Facility: [facility] Address: [address] [place] [address] Performed By: #### V ALLMG ####[facility] LABCLIA [id number] [place] [address] [place] HCO3 (Bld) [Moles/Vol] 24 mmol/L Normal 24-28 [facility] Comment on above: Order Comment: Speci men Type: VENOUS BLOOD SPECIMENOrdering Facility: [facility] Address: [address] [place], [place] [address] Performed By: #### V ALLMG ####[facility] LABCLIA [id number] [place] [address] [place] Hematocrit (Bld) [Volume fraction] 37.2 % Low 39.0-51.0 [facility] Comment on above: Order Comment: Speci men Type: VENOUS BLOOD SPECIMENOrdering Facility[facility] Address: [address] [place], [place] [address] Performed By: #### V ALLMG ####[facility] LABCLIA [id number] [place] [address] [place] Hemoglobin (Bld) [Mass/Vol] 12.1 g/dL Low 13.0-17.0 [facility] Comment on above: Order Comment: Speci men Type: VENOUS BLOOD SPECIMENOrdering Facility: [facility] Address: [address] Performed By: #### V ALLMG ####[facility] LABIA [id number] [place] [address] [place] Lactate [Moles/Vol] 1.4 mmol/L Normal 0.5-2.2 [facility] Comment on above: Order Comment: Speci men Type: VENOUS BLOOD SPECIMENOrdering Facility: [facility] Address: [address] Performed By: #### V ALLMG ####[facility] LABIA [id number] [place] [address] [place] Magnesium [Moles/Vol] 0.58 mmol/L Normal 0.45-0.60 [facility] Comment on above: Order Comment: Speci men Type: VENOUS BLOOD SPECIMENOrdering Facility: [facility] Address: [address] Performed By: #### V ALLMG ####[facility] LABIA [id number] [place] [address] [place] Methemoglobin (Bld) [Mass fraction] 1.7 % High 0.0-1.5 [facility] Comment on above: Order Comment: Speci men Type: VENOUS BLOOD SPECIMENOrdering Facility: [facility] Address: [address] Performed By: #### V ALLMG ####[facility] LABIA [id number] [place] [address] [place] Oxygen (BldV) [Partial pressure] 96 mm[Hg] High 35-45 [facility] Comment on above: Order Comment: Speci men Type: VENOUS BLOOD SPECIMENOrdering Facility: [facility] Address: [address] Performed By: #### V ALLMG ####[facility] LABCLIA [id number] [place] [address] [place] Oxygen adjusted to patient's actual temperature (BldV) [Partial pressure] 96 mmHg High 35-45 [facility] Comment on above: Order Comment: Speci men Type: VENOUS BLOOD SPECIMENOrdering Facility: [facility] Address: [address] [place], [place] [address] Performed By: #### V ALLMG ####[facility] LABCLIA [id number] [place] [address] [place] Oxygen saturation in Venous blood 97 % High 60-85 [facility] Comment on above: Order Comment: Speci men Type: VENOUS BLOOD SPECIMENOrdering Facility: [facility] Address: [address] [place], [place] [address] Performed By: #### V ALLMG ####[facility] LABCLIA [id number] [place] [address] [place] Oxyhemoglobin (BldV) [Mass fraction] 94 % High 60-85 [facility] Comment on above: Order Comment: Speci men Type: VENOUS BLOOD SPECIMENOrdering Facility: [facility] Address: [address] [place], [place] [address] Performed By: #### V ALLMG ####[facility] LABCLIA [id number] [place] [address] [place] pH (BldV) 7.39 [pH] Normal 7.32-7.42 [facility] Comment on above: Order Comment: Speci men Type: VENOUS BLOOD SPECIMENOrdering Facility: [facility] Address: [address] [place] [address] Performed By: #### V ALLMG ####[facility] LABCLIA [id number] [place] [address] [place] pH adjusted to patient's actual temperature (BldV) 7.39 Normal 7.32-7.42 [facility] Comment on above: Order Comment: Speci men Type: VENOUS BLOOD SPECIMENOrdering Facility: [facility] Address: [address] [place] [address] Performed By: #### V ALLMG ####[facility] LABCLIA [id number] [place] [address] [place] Potassium [Moles/Vol] 3.8 mmol/L Normal 3.5-5.0 [facility] Comment on above: Order Comment: Speci men Type: VENOUS BLOOD SPECIMENOrdering Facility: [facility] Address: [address] [place] [address] Performed By: #### V ALLMG ####[facility] LABCLIA [id number] [place] [address] [place] Sodium [Moles/Vol] 139 mmol/L Normal 136-144 [facility] Comment on above: Order Comment: Speci men Type: VENOUS BLOOD SPECIMENOrdering Facility: [facility] Address: [address] [place] [address] Performed By: #### V ALLMG ####[facility] LABCLIA [id number] [place] [address] [place] XR CHEST 1V [...] tortuous. Other: Generalized osteopenia. IMPRESSION: See result. Region Manager: PSCB Transcribe Date/Time: Aug 28 2022 10:04P Dictated by : AMERICO ADHIKARI MD This examination was interpreted and the report reviewed and electronically signed by: AMERICO ADHIKARI MD on Aug 28 2022 10:06PM EST [id number] Normal [facility] Bacteria Bld Culton 08-28-19 23 Bacteria identified Cx Nom (Bld) CULTURE, BLOOD: No growth 5 days Normal [facility] Comment on above: Performed By: #### 6 00-7 ####[facility] LABCLIA [id number] [place] [address] [place] Bacteria identified Cx Nom (Bld) CULTURE, BLOOD: No growth 5 days Normal [facility] Comment on above: Performed By: #### 6 00-7 ####[facility] LABCLIA [id number] [place] [address] [place] Bacteria Ur Culton 3 Bacteria identified Cx Nom (U) CULTURE, URINE: No growth (<1,000 CFU/ml) Normal [facility] Comment on above: Performed By: #### 6 30-4 ####[facility] LABCLIA [id number] [place] [address] [place] Basic metabolic 2000 panelon 08-27-2022 Anion gap [Moles/Vol] 13 mmol/L Normal 9-18 [facility] Comment on above: Order Comment: Speci men Type: BLOOD SPECIMENOrdering Facility: [facility] Address: [address] [place], [place] [address] Performed By: #### 2 4321-2, 37606-6, 2777-1 ####[facility] LABCLIA [id number] [place] [address] [place] Calcium [Mass/Vol] 9.3 mg/dL Normal 8.5-10.2 [facility] Comment on above: Order Comment: Speci men Type: BLOOD SPECIMENOrdering Facility: [facility] Address: [address] Performed By: #### 2 4321-2, , 2776-02 ####[facility] LABCLIA [id number] [facility] [place] [address] [place] Chloride [Moles/Vol] 105 mmol/L Normal 97-105 [facility] Comment on above: Order Comment: Speci men Type: BLOOD SPECIMENOrdering Facility: [facility] Address: [address] [place], [place] [address] Performed By: #### 2 4321-2, , 2776-02 ####[facility] LABCLIA [id number] [place] [address] [place] CO2 [Moles/Vol] 22 mmol/L Normal 22-30 [facility] Comment on above: Order Comment: Speci men Type: BLOOD SPECIMENOrdering Facility: [facility] Address: [address] [place], [place] [address] Performed By: #### 2 4321-2, , 2776-02 ####[facility] LABCLIA [id number] [place] [address] [place] Creatinine [Mass/Vol] 0.79 mg/dL Normal 0.73-1.22 [facility] Comment on above: Order Comment: Speci men Type: BLOOD SPECIMENOrdering Facility: [facility] Address: [address] [place], [place] [address] Performed By: #### 2 4321-2, , 2776-02 ####[facility] LABCLIA [id number] [place] [address] [place] ESTIMATED GLOMERULAR FILTRATION RATE 91 mL/min/1.73m??? Normal >=60 [facility] Comment on above: Order Comment: Speci men Type: BLOOD SPECIMENOrdering Facility: [facility] Address: [address] [place] [address] Result Comment: Mariaelena mated Glomerular Filtration Rate [...] Performed By: #### 2 4321-2, , 2776-02 ####[facility] LABCLIA [id number] [place] [address] [place] Glucose [Mass/Vol] 197 mg/dL High 74-99 [facility] Comment on above: Order Comment: Portia tay Type: BLOOD SPECIMENOrdering Facility: [facility] Address: [address] [place] [address] Result Comment: The [place] [employer] (ADA) provides guidance for cutoff [...] Standards of Medical Care in Diabetes 2016, [place] [employer]. Diabetes Care. 2016.39(Suppl 1). Performed By: #### 2 4321-2, , 2776-02 ####[facility] LABCLIA [id number] [place] [id number] [place] Potassium [Moles/Vol] 4.3 mmol/L Normal 3.7-5.1 [facility] Comment on above: Order Comment: Portia tay Type: BLOOD SPECIMENOrdering Facility: [facility] Address: [address] [place], [place] [address] Performed By: #### 2 4321-2, 04059-0, 2777 ####[facility] LABCLIA [id number] [place] [address] [place] Sodium [Moles/Vol] 140 mmol/L Normal 136-144 [facility] Comment on above: Order Comment: Speci men Type: BLOOD SPECIMENOrdering Facility: [facility] Address: [address] [place], [place] [address] Performed By: #### 2 4321-2, 10609-8, 27708-18 ####[facility] LABCLIA [id number] [place] [address] [place] Urea nitrogen [Mass/Vol] 17 mg/dL Normal 9-24 [facility] Comment on above: Order Comment: Speci men Type: BLOOD SPECIMENOrdering Facility: [facility] Address: [address] [place] [address] Performed By: #### 2 4321-2, , 27708-18 ####[facility] LABIA [id number] [place] [address] [place] CASE MGT INIT ASSESon 2022 CASE MGT INIT ASSES HNO ID: [id number] Author: Yane George RN Service: ? Author [...] Current Advance Directive: Health Care Power of Kettle Loader (Patient reports he has AD. request copy [...] General wellness, Be able to go home Morrow of Choice Explained: Morrow of Choice Given: No Reason Not Given: [...] oxygen, or cpaps at home. Had recent [place] in past. Cardiology on consult. No current [...] 27, 2022 TIME: 5:05 PM CONTACT #: [phone] Normal [facility] CBC W Auto Differential pane l (Bld)on 08-27-2022 Basophils (Bld) [#/Vol] 0.03 10*3/uL Normal <0.11 [facility] Comment on above: Order Comment: Speci men Type: BLOOD SPECIMENOrdering Facility: [facility] Address: [address] Performed By: #### 5 7021-8 ####[facility] LABCLIA [id number] [address] [place] Basophils/100 WBC (Bld) 0.2 % Normal [facility] Comment on above: Order Comment: Speci men Type: BLOOD SPECIMENOrdering Facility: [facility] Address: [address] Performed By: #### 5 7021-8 ####[facility] LABCLIA [id number] [place] [address] [place] Differential cell count method Nom (Bld) Auto Normal [facility] Comment on above: Order Comment: Speci men Type: BLOOD SPECIMENOrdering Facility: [facility] Address: [address] Performed By: #### 5 7021-8 ####[facility] LABCLIA [id number] [place] [address] [place] Eosinophils (Bld) [#/Vol] 10*3/uL Normal <0.46 [facility] Comment on above: Order Comment: Speci men Type: BLOOD SPECIMENOrdering Facility: [facility] Address: [address] Performed By: #### 5 7021-8 ####[facility] LABCLIA [id number] [address] STATES OF [facility] Eosinophils/100 WBC (Bld) 0.1 % Normal [facility] Comment on above: Order Comment: Speci men Type: BLOOD SPECIMENOrdering Facility: [facility] Address: [address] [place] [address] Performed By: #### 5 7021-8 ####[facility] LABCLIA [id number] [place] [address] [place] Erythrocyte distribution width (RBC) [Ratio] 12.5 % Normal 11.5-15.0 [facility] Comment on above: Order Comment: Speci men Type: BLOOD SPECIMENOrdering Facility: [facility] Address: [address] [place] [address] Performed By: #### 5 7021-8 ####[facility] LABCLIA [id number] [place] [address] [place] Hematocrit (Bld) [Volume fraction] 38.5 % Low 39.0-51.0 [facility] Comment on above: Order Comment: Speci men Type: BLOOD SPECIMENOrdering Facility: [facility] Address: [address] [place] [address] Performed By: #### 5 7021-8 ####[facility] LABCLIA [id number] [place] [address] [place] Hemoglobin (Bld) [Mass/Vol] 13.4 g/dL Normal 13.0-17.0 [facility] Comment on above: Order Comment: Speci men Type: BLOOD SPECIMENOrdering Facility: [facility] Address: [address] [place] [address] Performed By: #### 5 7021-8 ####[facility] LABIA [id number] [place] [address] [place] Immature granulocytes (Bld) [#/Vol] 0.10 10*3/uL High <0.10 [facility] Comment on above: Order Comment: Speci men Type: BLOOD SPECIMENOrdering Facility: [facility] Address: [address] [place], [place] [address] Performed By: #### 5 7021-8 ####[facility] LABCLIA [id number] [address] [place] Immature granulocytes/100 WBC (Bld) 0.6 % Normal [facility] Comment on above: Order Comment: Speci men Type: BLOOD SPECIMENOrdering Facility: [facility] Address: [address] [place] [address] Performed By: #### 5 7021-8 ####[facility] LABCLIA [id number] [place] [address] [place] Lymphocytes (Bld) [#/Vol] 1.16 10*3/uL Normal 1.00-4.00 [facility] Comment on above: Order Comment: Speci men Type: BLOOD SPECIMENOrdering Facility: [facility] Address: [address] [place] [address] Performed By: #### 5 7021-8 ####[facility] LABCLIA [id number] [place] [address] [place] Lymphocytes/100 WBC (Bld) 7.1 % Normal [facility] Comment on above: Order Comment: Speci men Type: BLOOD SPECIMENOrdering Facility: [facility] Address: [address] Performed By: #### 5 7021-8 ####[facility] LABCLIA [id number] [place] [address] [place] MCH (RBC) [Entitic mass] 31.5 pg Normal 26.0-34.0 [facility] Comment on above: Order Comment: Speci men Type: BLOOD SPECIMENOrdering Facility: [facility] Address: [address] Performed By: #### 5 7021-8 ####[facility] LABCLIA [id number] [place] [address] [place] MCHC (RBC) [Mass/Vol] 34.8 g/dL Normal 30.5-36.0 [facility] Comment on above: Order Comment: Speci men Type: BLOOD SPECIMENOrdering Facility: [facility] Address: [address] Performed By: #### 5 7021-8 ####[facility] LABCLIA [id number] [place] [address] [place] MCV (RBC) [Entitic vol] 90.6 fL Normal 80.0-100.0 [facility] Comment on above: Order Comment: Speci men Type: BLOOD SPECIMENOrdering Facility: [facility] Address: [address] [place] [address] Performed By: #### 5 7021-8 ####[facility] LABIA [id number] [place] [address] [place] Monocytes (Bld) [#/Vol] 1.00 10*3/uL High <0.87 [facility] Comment on above: Order Comment: Speci men Type: BLOOD SPECIMENOrdering Facility: [facility] Address: [address] [place] [address] Performed By: #### 5 7021-8 ####[facility] LABIA [id number] [place] [address] [place] Monocytes/100 WBC (Bld) 6.2 % Normal [facility] Comment on above: Order Comment: Speci men Type: BLOOD SPECIMENOrdering Facility: [facility] Address: [address] [place], [place] [address] Performed By: #### 5 7021-8 ####[facility] LABIA [id number] [place] [address] [place] Neutrophils (Bld) [#/Vol] 13.93 10*3/uL High 1.45-7.50 [facility] Comment on above: Order Comment: Speci men Type: BLOOD SPECIMENOrdering Facility: [facility] Address: [address] [place], [place] [address] Performed By: #### 5 7021-8 ####[facility] LABIA [id number] [place] [address] [place] Neutrophils/100 WBC (Bld) 85.8 % Normal [facility] Comment on above: Order Comment: Speci men Type: BLOOD SPECIMENOrdering Facility: [facility] Address: [address] [place] [address] Performed By: #### 5 7021-8 ####[facility] LABIA [id number] [place] [address] [place] Nucleated RBC (Bld) [#/Vol] 10*3/uL Normal <0.01 [facility] Comment on above: Order Comment: Speci men Type: BLOOD SPECIMENOrdering Facility: [facility] Address: [address] [place], [place] [address] Performed By: #### 5 7021-8 ####[facility] LABGIFF[facility] [id number] [place] [address] [place] Nucleated RBC/100 WBC (Bld) [Ratio] 0.0 /100 WBC Normal [facility] Comment on above: Order Comment: Speci men Type: BLOOD SPECIMENOrdering Facility: [facility] Address: [address] [place], [place] [address] Performed By: #### 5 7021-8 ####[facility] LABIA [id number] [place] [address] [place] Platelet mean volume (Bld) [Entitic vol] 11.4 fL Normal 9.0-12.7 [facility] Comment on above: Order Comment: Speci men Type: BLOOD SPECIMENOrdering Facility: [facility] Address: [address] [place] [address] Performed By: #### 5 7021-8 ####[facility] LABIA [id number] [place] [address] [place] Platelets (Bld) [#/Vol] 214 10*3/uL Normal 150-400 [facility] Comment on above: Order Comment: Speci men Type: BLOOD SPECIMENOrdering Facility: [facility] Address: [address] [place] [address] Performed By: #### 5 7021-8 ####[facility] LABCLIA [id number] [place] [address] [place] RBC (Bld) [#/Vol] 4.25 10*6/uL Normal 4.20-6.00 [facility] Comment on above: Order Comment: Speci men Type: BLOOD SPECIMENOrdering Facility: [facility] Address: [address] Performed By: #### 5 7021-8 ####[facility] LABCLIA [id number] [place] [address] [facility] [place] WBC (Bld) [#/Vol] 16.24 10*3/uL High 3.70-11.00 [facility] Comment on above: Order Comment: Speci men Type: BLOOD SPECIMENOrdering Facility: [facility] Address: [address] Performed By: #### 5 7021-8 ####[facility] LABCLIA [id number] [address] [place] BLOOD TYPEon 023 ABO O Normal [facility] Comment on above: Order Comment: Speci men Type: BLOOD SPECIMENOrdering Facility: [facility] Address: [address] [place], [place] [address] Performed By: #### C ONABO ####[facility] BLOOD BANKCLIA [id number] [address] [place] Rh Nom (Bld) Positive Normal [facility] Comment on above: Order Comment: Speci men Type: BLOOD SPECIMENOrdering Facility: [facility] Address: [address] Performed By: #### C ONABO ####[facility] BLOOD BANKCLIA [id number] [place] [address] [place] CONSULTon 08-27-2022 CONSULT HNO ID: [id number] Author: Uzma Bates MD Service: Cardiovascular Medicine Author Type: Physician Type: Consults Filed: 08/27/2022 8:39 PM Note Text: [facility] CARDIOVASCULAR MEDICINE CONSULT NOTE (Template ID [id number]) Olaf Briones [id number] PRIMARY SERVICE: Urology CONSULTING SERVICE: Cardiovascular Medicine: [...] passed out . 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 In cytology laboratory manager, there were concerns that pacemaker might be necessary. After stent was deployed in prox RCA,AV block resolved and HR normalized. Pt was put on ASA, Brillinta, Lisinopril (2.5), and Coreg (6.25) and was discharged two days later. PAST MEDICAL HISTORY HTN, HLD, CAD, DM FAMILY HISTORY Son[place] D[place] HOME MEDICATIONS allopurinol (ZYLOPRIM) 300 mg tabletTake [...] rash o (more content not included)... Normal [facility] CT Urogramon 08-27-2022 CT Urogram Exam [...] 300 Contrast amount in ml's: 100 Normal [facility] Consultation Noteon 08-28-19 Consultation Note Patient: [...] BPH with urinary obstruction / SNOMED CT 7976331646 / Confirmed Kidney stone / SNOMED CT 761886304 / Confirmed Weak urinary stream / SNOMED CT 935790811 / Confirmed Microscopic hematuria / SNOMED CT 847188682 / Confirmed Diabetes / SNOMED CT 621782765 / Confirmed Hypertension / SNOMED CT 9694388238 / Confirmed Prostatitis / SNOMED CT 67726874 / Confirmed BPH without urinary obstruction / SNOMED CT 1397142838 / Confirmed Gross hematuria / SNOMED CT 684022192 / Confirmed Asymptomatic microscopic hematuria / SNOMED CT 6533237269 / Confirmed, Active Problems (10) Asymptomatic microscopic hematuria BPH with urinary obstruction BPH without urinary obstruction Diabetes Gross hematuria Hypertension Kidney stone Microscopic hematuria Prostatitis Weak urinary stream Histories Past Medical History: No active or resolved past medical history items have been selected or recorded. Family History: Hypertension Father Procedure history: Cystoscopy ([id number]) on 08/18/2013 at 68 Years. Comments: 10/02/2018 16:11 Katie Rincon MA 11/08/200904/2006 TURP - Transurethral resection of prostate ([id number]) in 2006 at 61 Years. Urodynamics (824875481) in 2006 at 61 Years. Transrectal biopsy of prostate using ultrasound (US) guidance (2027583086) in 2005 at 60 Years. ESWL - Extracorporeal shockwave lithotripsy for renal calculus (815632488) in 2000 at 55 Years. Comments: 10/02/2018 [...] Blood Press (more content not included)... Normal [facility] Comment on above: Result Comment: Elec tronically Signed By: Alexandre KOROMA MD.br\Date and Time Signed: 08/26/22 22:22 EDT ECG COMPLETEon 08-27-2022 ECG COMPLETE Ventricular Rate : 6 8 BPM Atrial Rate : 68 BPM P-R Interval : 186 ms QRS Duration : 102 ms Q-T Interval : 452 ms QTC Calculation(Bazett) : 480 ms Calculated P [place] : 7 degrees Calculated R [place] : -25 degrees Calculated T [place] : -33 degrees NORMAL SINUS RHYTHM MINIMAL VOLTAGE CRITERIA FOR LVH, MAY BE NORMAL VARIANT ( R in aVL ) CANNOT EXCLUDE ANTERIOR MYOCARDIAL INFARCTION , AGE UNDETERMINED ABNORMAL ECG Confirmed by CODY MANCIA MD ([id number]) on 09/01/2022 3:04:36 PM NAME : OLAF BRIONES PID : [id number] : 1945 Gender : Male Race : Unknown ORD : [id number] Procedure Date : Aug 27 2022 12:56:05 [...] : , Acquired by : CAROL MALDONADO [facility] ED Clinical Summaryon 2022 ED Clinical Summary (Inserted Image. Amara ble to display) [address] [address] ED Clinical Summary Person Information Name: OLAF BRIONES/[facility] Age: 77 Years : 1945 Sex: Male Language: Slovenian PCP: JAME BARRAZA MD Marital Status: Visit [...] 08/27/2022 04:32:32 08/27/2022 04:32:32 08/27/2022 04:32:32 ADDRESS: [address] [place] [id number] [facility] DOC NOTES: MEDICAL INFORMATION: Prescriptions Given: Medications [...] infection; Other obstructive and reflux uropathy Normal [facility] ED Note-Physicianon 08-28-19 ED Note-Physician Patient [...] and spoke with Dr. Johnson from the [facility] who agreed to the transfer the patient for further care. Normal [facility] Comment on above: Result Comment: Elec tronically Signed By: Tom Salas DO\.br\Date and Time Signed: 08/27/22 02:17 EDT ED Patient Education Noteon 08-27-2022 ED Patient Education Note Normal [facility] ED Patient Summaryon 023 ED Patient Summary (Inserted Image. Amara ble to display) [place] [id number] Patient Discharge Instructions Person Information Name: OLAF BRIONES Age: 77 Years Arrival Date: 08/26/2022 16:52:40 Discharge Diagnosis: 1:Urinary retention; 2:Gross hematuria; 3:Urinary tract infection; Other obstructive and reflux uropathy Primary Care Physician: CHRIS HAHN, JAME Bowers Provider Information Primary Provider: Keith Panchal M.D. Advanced Boat Finisher:None The exam and treatment you received in the Emergency Department were for an urgent problem and are not intended as complete care. It is important that you follow up with a doctor, nurse practitioner, or physician?s trust operations assistant for ongoing care. If your symptoms [...] opioids can be used to help relieve skpjkpcw-hq-eigxhx pain and are often prescribed following a [...] be struggling with addiction, tell your health pet care attendant and ask for guidance or call [facility]?S PharmAbcine Helpline at [phone]. z Source: US Department of Health and Human Services/Center for Disease Control & Prevention [place] H (more content not included)... Normal [facility] HISTORY PHYSICALon HISTORY PHYSICAL HNO ID: [id number] Author: David Andrews MD Service: Urology Author Type: Physician Type: HANDP Filed: 08/27/2022 9:26 PM Note Text: UROLOGY SERVICE HISTORY AND PHYSICAL Name: Olaf Briones Bed: H050 001/H050-01 Date: 08/27/2022 After Hours [facility] Pager: [phone] ASSESSMENT AND PLAN Olaf Briones is a 77 year old male with PMHx of HTN, HLD, DM, recent STEMI (s/p JUHI), nephrolithiasis, transferred from [facility] for gross hematuria. Currently with 18Fr [...] catheter stops flowing clamp CBI and page [phone] - Will continue to follow urine, if remains clear may be able to avoid OR this admission in setting of recent STEMI requiring PCI - Working to obtain cardiology records from [facility] Gt Encarnacion MD PGY-6, Urology Pager: [phone] After 1800 and on weekends please page [phone] for assistance. Active Problems Prior [place] POA: Yes - placed on ASA 81, [...] recent STEMI (s/p JUHI), nephrolithiasis, transferred from [facility] for gross hematuria. He recently had primary revascularization of proximal RCA (3mm JUHI) placed at [facility] for STEMI on August 20. He [...] as need (more content not included)... Normal [facility] Insurance Correspondence Off iceon 08-27-2022 Insurance Correspondence Office [id number]#[id number]:127 Normal [facility] MEDICAL EMERon 08-27-2022 MEDICAL VANDANA HNO ID: [id number] Author: Francis Irizarry MD Service: Urology Author Type: Resident Type: Chg in Clinical Condition Filed: 08/27/2022 9:40 AM Note Text: Olaf Briones 08/27/2022 9:33 AM AMET for orthostatic hypotension Assessment: Olaf Briones is a 77 year old male with PMHx of HTN, HLD, DM, recent STEMI (s/p JUHI), nephrolithiasis, transferred from [facility] for gross hematuria. Currently with 18Fr [...] brillinta for recent STEMI last week at [facility]. Unable to see ECHO data, EKG [...] his is coming to visit. 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 Zamora. Luis Angel on brillinta [...] at bedside to have bring records from [facility] to here. Will also request ECHO report from [facility] as well. - Continue CBI, titrate to light pink Discussed with chief, Dr. Encarnacion, and staff, Dr. 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 LABCLIA [id number] [facility] [id number] Monitor Recordon 08-27-2022 Monitor Record [id number]#1.00CD:127 Normal [facility] PT panel Coag (PPP)on 2022 INR Coag (PPP) [Relative time] 1.0 {INR} Normal 0.9-1.3 [facility] Comment on above: Order Comment: Portia tay Type: BLOOD SPECIMENOrdering Facility: [facility] Address: [address] [place], [place] [phone] Result Comment: Mago min K Antagonist (VKA) Therapeutic Range: INR 2 to 3 (Target INR of 2.5) Note: For patients treated with VKA drugs, such as warfarin, the [place] [employer] 2012 Guideline recommends [...] Chest 2012, 141:7S-47S Daniel KENNEDY et al. [facility] 2017, 70: 252-289 Performed By: #### 3 4528-0, 39498-8 ####[facility] LABCLIA [id number] [address] [place] PT Coag (PPP) [Time] 10.4 s Normal 9.7-13.0 [facility] Comment on above: Order Comment: Speci men Type: BLOOD SPECIMENOrdering Facility: [facility] Address: [address] [place] [address] Performed By: #### 3 4528-0, 91514-5 ####[facility] LABCLIA [id number] [place] [address] [place] Phosphate SerPl-mCncon 08-27 Phosphate [Mass/Vol] 3.7 mg/dL Normal 2.7-4.8 [facility] Comment on above: Order Comment: Speci men Type: BLOOD SPECIMENOrdering Facility: [facility] Address: [address] [place] [address] Performed By: #### 2 4321-2, 53075-4, 2777-1 ####[facility] LABCLIA [id number] [place] [address] [place] RAD - Preliminary Cat Scan R eporton 08-27-2022 RAD - Preliminary Cat Scan Report [id number]#1.00CD:127 Normal [facility] TYPE + SCREENon 08-27-2022 ABO O Normal [facility] Comment on above: Order Comment: Speci men Type: BLOOD SPECIMENOrdering Facility: [facility] Address: [address] [place] [address] Performed By: #### T SCR ####CC [facility] BLOOD BANKCLIA [id number] [place] [address] [place] HISTORICAL AB SCR STATUS Negative Normal [facility] Comment on above: Order Comment: Speci men Type: BLOOD SPECIMENOrdering Facility: [facility] Address: [address] [place] [address] Performed By: #### T SCR ####CC [facility] BLOOD BANKCLIA [id number] [address] Rh Nom (Bld) Positive Normal [facility] Comment on above: Order Comment: Speci men Type: BLOOD SPECIMENOrdering Facility: [facility] Address: [address] [place] [address] Performed By: #### T SCR ####CC [facility] BLOOD BANKIA [id number] [address] TYPE AND SCREEN EXPIRATION 08/30/2022 23:59 Normal [facility] Comment on above: Order Comment: Speci men Type: BLOOD SPECIMENOrdering Facility: [facility] Address: [address] [place] [address] Performed By: #### T SCR ####CC [facility] BLOOD BANKIA [id number] [address] Transfer Documentson 023 Transfer Documents [id number]#[id number]:127 Normal [facility] aPTT PPPon 08-27-2022 aPTT Coag (PPP) [Time] 28.7 s Normal 23.0-32.4 [facility] Comment on above: Order Comment: Speci men Type: BLOOD SPECIMENOrdering Facility: [facility] Address: [address] [place] [address] Performed By: #### 3 4528-0, 77989-3 ####[facility] LABCLIA [id number] [address] Auto Diffon 08-26-2022 Basophils/100 WBC (Bld) 0.5 % Normal 0.0-2.0 F [facility] Comment on above: Order Comment: Order Added by Discern Expert. Performed By: #### 2 289292, 25645681, 0006426, 27038136, 5314499 #### [facility] [address] [place] [address] Basophils/Leukocytes Auto (Bld) [Pure # fraction] 0.1 E9/L Normal 0.0-0.2 [facility] Comment on above: Order Comment: Order Added by Discern Expert. Performed By: #### 2 430476, 45874138, 8232579, 45437697, 6582489 #### [facility] [address] [place] [address] Eosinophils/100 WBC (Bld) 0.9 % Normal 0.0-8.0 [facility] Comment on above: Order Comment: Order Added by Discern Expert. Performed By: #### 2 970837, 25802346, 1544576, 40916723, 6847485 #### [facility] [address] [place] [address] Eosinophils/Leukocytes Auto (Bld) [Pure # fraction] 0.1 E9/L Normal 0.0-0.5 [facility] Comment on above: Order Comment: Order Added by Discern Expert. Performed By: #### 2 113738, 49242813, 7686784, 33669286, 1531279 #### [facility] [address] [place] [address] Lymphocytes/100 WBC (Bld) 6.1 % Low 14.0-50.0 [facility] Comment on above: Order Comment: Order Added by Discern Expert. Performed By: #### 2 829311, 43142490, 8997126, 16482953, 0997263 #### [facility] [address] [place] [address] Lymphocytes/Leukocytes Auto (Bld) [Pure # fraction] 0.9 E9/L Low 1.0-4.0 [facility] Comment on above: Order Comment: Order Added by Discern Expert. Performed By: #### 2 371508, 18708512, 4883072, 47401268, 2409472 #### [facility] [address] [place] [address] Monocytes/100 WBC (Bld) 4.9 % Normal 4.0-14.0 F [facility] Comment on above: Order Comment: Order Added by Discern Expert. Performed By: #### 2 065486, 83423600, 4375728, 59473670, 7428308 #### [facility] [address] [place] [address] Monocytes/Leukocytes Auto (Bld) [Pure # fraction] 0.8 E9/L Normal 0.2-1.0 [facility] Comment on above: Order Comment: Order Added by Discern Expert. Performed By: #### 2 073050, 80589778, 6948970, 70846283, 6343623 #### [facility] [address] [place] [address] Neutrophils/100 WBC (Bld) 87.6 % High 36.0-75.0 [facility] Comment on above: Order Comment: Order Added by Discern Expert. Performed By: #### 2 618022, 98709694, 4053224, 54180866, 1457736 #### [facility] [address] [place] [address] Neutrophils/Leukocytes Auto (Bld) [Pure # fraction] 13.5 E9/L High 2.0-7.5 [facility] Comment on above: Order Comment: Order Added by Discern Expert. Performed By: #### 2 874380, 17827152, 1750484, 01107165, 7102510 #### [facility] [address] [place] [address] BMPon 08-26-2022 Creatinine [Mass/Vol] 0.9 mg/dL Normal 0.5-1.3 [facility] Comment on above: Performed By: #### 2 397279, 84918701, 9981021, 17136928, 0165484 #### [facility] [address] [place] [address] Urea nitrogen [Mass/Vol] 18 mg/dL Normal 5-21 [facility] Comment on above: Performed By: #### 2 408474, 56701399, 3184522, 16345324, 3430311 #### [facility] [address] [place] [address] Urea nitrogen/Creatinine [Mass ratio] 20 No Units Normal 10-20 [facility] Comment on above: Performed By: #### 2 245120, 95445954, 6189965, 75298542, 1125094 #### [facility] [address] [place] [address] Anion gap [Moles/Vol] 13 mmol/L Normal 6-16 [facility] Comment on above: Performed By: #### 2 834681, 11874431, 4564937, 18565441, 1713864 #### [facility] [address] [place] [address] Calcium [Mass/Vol] 8.9 mg/dL Normal 8.9-11.1 [facility] Comment on above: Performed By: #### 2 540049, 41007596, 8765480, 34584017, 1282869 #### [facility] [address] [place] [address] Chloride [Moles/Vol] 105 mmol/L Normal 101-111 [facility] Comment on above: Performed By: #### 2 793205, 11402779, 0201553, 66787910, 6759701 #### [facility] [address] [place] [address] CO2 [Moles/Vol] 24 mmol/L Normal 21-31 [facility] Comment on above: Performed By: #### 2 890982, 89243138, 4693304, 40348357, 0752319 #### [facility] [address] [place] [address] Glucose [Mass/Vol] 154 mg/dL Normal 55-199 [facility] Comment on above: Result Comment: If t his glucose result represents a fasting glucose, interpretation should refer to the following reference range: 55-99 mg/dL Performed By: #### 2 660936, 36168221, 8851286, 28410918, 5066118 #### [facility] [address] [place] [address] Potassium [Moles/Vol] 4.0 mmol/L Normal 3.5-5.3 [facility] Comment on above: Performed By: #### 2 463297, 72507082, 9116728, 26620676, 6692374 #### [facility] [address] [place] [address] Sodium [Moles/Vol] 138 mmol/L Normal 135-145 [facility] Comment on above: Performed By: #### 2 457104, 62289413, 6793368, 04342012, 5880476 #### [facility] [address] [place] [address] CBC w/ Auto Diffon 3 Erythrocyte distribution width (RBC) [Ratio] 13.4 % Normal 10.9-14.2 [facility] Comment on above: Performed By: #### 2 702978, 67579514, 4056677, 19792645, 7426782 #### [facility] [address] [place] [address] Hematocrit (Bld) [Volume fraction] 40.9 % Normal 37.7-49.0 [facility] Comment on above: Performed By: #### 2 120890, 61985883, 6305675, 76181558, 4882241 #### [facility] [address] [place] [address] Hemoglobin (Bld) [Mass/Vol] 14.0 g/dL Normal 13.5-17.5 [facility] Comment on above: Performed By: #### 2 278323, 81051024, 4960690, 18369496, 2519405 #### [facility] [address] [place] [address] MCH (RBC) [Entitic mass] 31.3 pg Normal 27.0-34.0 [facility] Comment on above: Performed By: #### 2 671134, 38634644, 5090695, 81474918, 5273118 #### [facility] [address] [place] [address] MCHC (RBC) [Mass/Vol] 34.1 g/dL Normal 31.4-36.0 [facility] Comment on above: Performed By: #### 2 523396, 59346686, 9197568, 48753787, 0981191 #### [facility] [address] [place] [address] MCV (RBC) [Entitic vol] 91.9 fL Normal 80.0-100.0 [facility] Comment on above: Performed By: #### 2 674203, 10621896, 4389840, 73425214, 7249286 #### [facility] [address] [place] [address] Platelet mean volume (Bld) [Entitic vol] 9.6 fL Normal 6.4-10.8 [facility] Comment on above: Performed By: #### 2 038126, 40175321, 2193848, 64985616, 4020052 #### [facility] [address] [place], [place] [address] Platelets (Bld) [#/Vol] 194.0 E9/L Normal 150. 0-500. 0 [facility] Comment on above: Performed By: #### 2 420291, 21039828, 7348384, 25318483, 7129951 #### [facility] [address] [place], [place] [address] RBC (Bld) [#/Vol] 4.4 E12/L Normal 4.3-5.9 [facility] Comment on above: Performed By: #### 2 365443, 86874708, 9586081, 44520373, 9281031 #### [facility] [address] [place] [address] WBC corrected for nucl RBC Auto (Bld) [#/Vol] 15.5 E9/L High 4.0-11.0 [facility] Comment on above: Performed By: #### 2 049793, 41681090, 3392148, 20380464, 8593662 #### [facility] [address] [place] [address] CHEMISTRYOrdered By: SYSTEM SYSTEM on 08-26-2022 Anion [...] 88 mL/min/1.73 m2 Normal >=59mL/min /1.73 m2 [facility] Chem S Glucose [Mass/Vol] 154 mg/dL Normal [...] 31.1 s Normal 25.1 - 36.5 second(s) [facility] Auto Coag INR Coag (PPP) [Relative time] 1.2 {INR} Invalid Interpretation Code [facility] Auto Coag PT Coag (PPP) [Time] 12.8 s High 9.4 - 1 2.5 second(s) [facility] Auto Coag Consent for Treatmenton Consent for Treatment [id number]#[id number]:127 Normal [facility] ED Note-Physicianon 08-27-19 ED Note-Physician Basic [...] and Complexity of Problems Differential Diagnosis: [] [facility] Data External documents reviewed: [] [...] Alcohol Use, (more content not included)... Normal [facility] Comment on above: Result Comment: Elec [...] 87.6 % High 36.0 - 75.0 % [facility] HemeAutoSS Neutrophils/Leukocytes Auto (Bld) [Pure # fraction] 13.5 E9/L High 2.0 - 7.5 E9/L [facility] HemeAutoSS HEMATOLOGYOrdered By: Jani Hardy on 08-26-2022 Erythrocyte distribution width (RBC) [Ratio] 13.4 % Normal 10.9 - 14.2 % [facility] HemeAutoSS Hematocrit (Bld) [Volume fraction] 40.9 % Normal 37.7 - 49.0 % [facility] HemeAutoSS Hemoglobin (Bld) [Mass/Vol] 14.0 g/dL Normal 13.5 - 17.5 gm/dL [facility] HemeAutoSS MCH (RBC) [Entitic mass] 31.3 pg Normal 27.0 - 34.0 pg [facility] HemeAutoSS MCHC (RBC) [Mass/Vol] 34.1 g/dL Normal 31.4 - 36.0 gm/dL [facility] HemeAutoSS MCV (RBC) [Entitic vol] 91.9 fL Normal 80.0 - 100.0 fL [facility] HemeAutoSS Platelet mean volume (Bld) [Entitic vol] 9.6 fL Normal 6.4 - 10.8 fL [facility] HemeAutoSS Platelets (Bld) [#/Vol] 194.0 E9/L Normal 150. 0 - 500.0 E9/L [facility] HemeAutoSS RBC (Bld) [#/Vol] 4.4 E12/L Normal 4.3 - 5.9 E12/L [facility] HemeAutoSS WBC corrected for nucl RBC Auto (Bld) [#/Vol] 15.5 E9/L High 4.0 - 11.0 E9/L [facility] HemeAutoSS Laboratory - Microbiology an d Antimicrobial susceptibilityOrdered By: Jaye Bishop on 08-26-2022 Bacteria identified Cx Nom (U) No growth to date [facility] Monitor Recordon 08-26-2022 Monitor Record [id number]#[id number]:127 Normal [facility] Monitor Record [id number]#[id number]:127 Normal [facility] PT & PTTon 08-26-2022 aPTT Coag (PPP) [Time] 31.1 second(s) Normal 25.1-36.5 [facility] Comment on above: Result Comment: Para [...] the same coagulation reagent and instrumentation as [facility]. Currently there are no coagulation studies available worldwide for children to 14 days, and no normal ranges. Heparin therapeutic range (represented by Anti-Factor Xa activity of 0.2 - 0.4 U/mL) corresponds to PTT of 56.6 - 109.0 sec. Performed By: #### 2 497578, 52685527, 1240588, 23050846, 8011664 #### [facility] [address] [place] [address] INR Coag (PPP) [Relative time] 1.2 {INR} Invalid Interpretation Code [facility] Comment on above: Result Comment: INR results are specifically intended to assess patients stabilized on long-term Anticoagulation therapy suggested INR?s ?Less Intensive Anticoagulation? 2.0 ? 3.0 Conventional Range 3.0 ? 4.5 Performed By: #### 2 872745, 68427724, 4003816, 53615092, 3582266 #### [facility] [address] [place] [address] PT Coag (PPP) [Time] 12.8 second(s) High 9.4-12.5 [facility] Comment on above: Result Comment: 15 [...] the same coagulation reagent and instrumentation as [facility]. Currently there are no coagulation studies available worldwide for children to 14 days, and no normal ranges. Performed By: #### 2 458984, 95808451, 6324040, 30904578, 0209956 #### [facility] [address] [place] [address] UA With Cult Reflexon 2022 Bacteria LM Ql (Urine sed) 1+ /HPF Abnormal Trace [facility] Comment on above: Order Comment: Urina ry Catheter Insertion triggered Urinalysis With Culture Reflex order by discern. Performed By: #### 2 960967, 86075424, 5933937, 48619759, 3137852 #### [facility] [address] [place] [address] Bilirubin Ql (U) Negative Normal Negative [facility] Comment on above: Order Comment: Urina ry Catheter Insertion triggered Urinalysis With Culture Reflex order by discern. Performed By: #### 2 350986, 96555462, 2928184, 44826159, 8007479 #### [facility] [address] [place] [address] Clarity (U) CLOUDY Abnormal Clear [facility] Comment on above: Order Comment: Urina ry Catheter Insertion triggered Urinalysis With Culture Reflex order by discern. Performed By: #### 2 303403, 53253899, 4319981, 01526045, 9735314 #### [facility] [address] [place] [address] Color (U) RED Abnormal Yellow [facility] Comment on above: Order Comment: Urina ry Catheter Insertion triggered Urinalysis With Culture Reflex order by discern. Performed By: #### 2 178913, 67203898, 3731963, 92997898, 4121840 #### [facility] [address] [place] [address] Epithelial cells.squamous LM.HPF (Urine sed) [#/Area] 0-2 Normal 0-2 [facility] Comment on above: Order Comment: Urina ry Catheter Insertion triggered Urinalysis With Culture Reflex order by discern. Performed By: #### 2 241197, 78161253, 5709098, 58851906, 9422554 #### [facility] [address] [place] [address] Glucose Test strip (U) [Mass/Vol] TRACE Abnormal Negative [facility] Comment on above: Order Comment: Urina ry Catheter Insertion triggered Urinalysis With Culture Reflex order by discern. Performed By: #### 2 833045, 72173240, 7106346, 56824918, 9933847 #### [facility] [address] [place] [address] Hemoglobin Ql (U) 3+ Abnormal Negative [facility] Comment on above: Order Comment: Urina ry Catheter Insertion triggered Urinalysis With Culture Reflex order by discern. Performed By: #### 2 213975, 30994473, 6230348, 43466020, 5745845 #### [facility] [address] [place] [address] Ketones (U) [Mass/Vol] 1+ Abnormal Negative Fi [facility] Comment on above: Order Comment: Urina ry Catheter Insertion triggered Urinalysis With Culture Reflex order by discern. Performed By: #### 2 658841, 54690932, 5824250, 89484355, 5401413 #### [facility] [address] [place] [address] [place].plasma/[place]. RBC (Bld) [Mass ratio] >75 Abnormal 0-3 [facility] Comment on above: Order Comment: Urina ry Catheter Insertion triggered Urinalysis With Culture Reflex order by discern. Performed By: #### 2 088633, 88173995, 3298782, 64104553, 5011635 #### [facility] [address] [place] [address] Mucus Ql (Urine sed) 1+ Normal [facility] Comment on above: Order Comment: Urina ry Catheter Insertion triggered Urinalysis With Culture Reflex order by discern. Performed By: #### 2 723374, 20580342, 7878556, 51394732, 4389032 #### [facility] [address] [place] [address] Nitrite Ql (U) Positive Abnormal Negative [facility] Comment on above: Order Comment: Urina ry Catheter Insertion triggered Urinalysis With Culture Reflex order by discern. Performed By: #### 2 [id number], [id number], [id number], [id number], [id number] #### [facility] [address] [place] [address] pH (U) 7.5 [pH] Invalid Interpretation Code 5.0-9.0 [facility] Comment on above: Order Comment: Urina ry Catheter Insertion triggered Urinalysis With Culture Reflex order by discern. Performed By: #### 2 [id number], [id number], [id number], [id number], [id number] #### [facility] [address] [place] [address] Protein (U) [Mass/Vol] 3+ Abnormal Negative Fi [facility] Comment on above: Order Comment: Urina ry Catheter Insertion triggered Urinalysis With Culture Reflex order by discern. Performed By: #### 2 [id number], [id number], [id number], [id number], [id number] #### [facility] [address] [place] [address] Specific gravity (U) [Rel density] 1.015 Invalid Interpretation Code 1.005-1.03 0 [facility] Comment on above: Order Comment: Urina ry Catheter Insertion triggered Urinalysis With Culture Reflex order by discern. Performed By: #### 2 [id number], [id number], [id number], [id number], [id number] #### [facility] [address] [place] [address] Type of Urine collection method Catheter Normal [facility] Comment on above: Order Comment: Urina ry Catheter Insertion triggered Urinalysis With Culture Reflex order by discern. Performed By: #### 2 120920, [id number], [id number], [id number], [id number] #### [facility] [address] [place] [address] Urobilinogen Qn (U) >=8.0 Abnormal 0.0-1.[address] [facility] Comment on above: Order Comment: Urina ry Catheter Insertion triggered Urinalysis With Culture Reflex order by discern. Performed By: #### 2 748430, [id number], [id number], [id number], [id number] #### [facility] [address] [place] [address] WBC Auto Ql (U) 2+ Abnormal Negative [facility] Comment on above: Order Comment: Urina ry Catheter Insertion triggered Urinalysis With Culture Reflex order by discern. Performed By: #### 2 536213, [id number], [id number], [id number], [id number] #### [facility] [address] [place] [address] WBC LM.HPF (Urine sed) [#/Area] 16-25 Abnormal 0-5 [facility] Comment on above: Order Comment: Urina ry Catheter Insertion triggered Urinalysis With Culture Reflex order by discern. Performed By: #### 2 910970, [id number], [id number], [id number], [id number] #### [facility] [address] [place] [address] URINALYSISOrdered By: Jordan quintana on 08-26-2022 Bacteria [...] Interpretation Code Negative [facility] UA Auto SS [place].plasma/[place]. RBC (Bld) [Mass ratio] >75 /HPF Invalid Interpretation Code 0-3/HPF [facility] UA Auto SS Mucus Ql (Urine sed) 1+ (08/26/22 6:58 PM) Normal [facility] UA Auto SS Nitrite Ql (U) Positive [...] Spec Desc Catheter (08/26/22 6:58 PM) Normal [facility] UA Auto SS Urobilinogen Qn (U) {Belem'U}/dL [...] [Vol rate/Area] 88 mL/min/1.73 m2 Normal >=59 [facility] Comment on above: Order Comment: Order added by Discern Expert. Result Comment: Grants Analyst elio kidney disease could be indicated at eGFR's of less than 60 mL/min/1.73m2. Kidney failure is indicated at less than 15 mL/min/1.73m2. Performed By: #### 2 [id number], [id number], [id number], [id number], [id number] #### [facility] [address] [place] [address] Basic Metabolic Panelon 07-0 Anion gap [Moles/Vol] 10.8 mmol/L Normal 6.0-15.0 [facility] Comment on above: Performed By: #### H S TROP #### [facility] [address] [place] [address] Calcium [Mass/Vol] 9.0 mg/dL Normal 8.6-10.3 [facility] Comment on above: Performed By: #### H S TROP #### [facility] [address] Chloride [Moles/Vol] 105 mmol/L Normal 98-107 [facility] Comment on above: Performed By: #### H S TROP #### [facility] [address] CO2 [Moles/Vol] 26.0 mmol/L Normal 21.0-31.0 [facility] Comment on above: Performed By: #### H S TROP #### [facility] [address] [place] [address] [place] Creatinine [Mass/Vol] 0.79 mg/dL Normal 0.70-1.30 [facility] Comment on above: Performed By: #### H S TROP #### [facility] [address] [place] [address] [place] Creatinine Clr Calc Pharmacy 74.81 Normal [facility] Comment on above: Result Comment: PERF ORMED BY: [place] [address] PATHOLOGIST PUMP SERVICE SUPERVISOR DREW REAL M.D. Performed By: #### H S TROP #### [place] [address] [place] GFR/1.73 sq M.predicted MDRD (S/P/Bld) [Vol rate/Area] mL/min/{1.73_m2} Normal [facility] Comment on above: Performed By: #### H S TROP #### [place] [address] [place] Glucose [Mass/Vol] 133 mg/dL High 70-100 [facility] Comment on above: Result Comment: [facility] Glucose Reference Range is dependent on time and content of last meal. Glucose of more than 200 mg/dL in a nonstressed, ambulatory subject supports the diagnosis of Diabetes Mellitus. ADA recommended reference range Performed By: #### H S TROP #### [address] Potassium [Moles/Vol] 3.8 mmol/L Normal 3.5-5.1 [facility] Comment on above: Performed By: #### H S TROP #### [place] [address] [place] Sodium [Moles/Vol] 138 mmol/L Normal 136-145 [facility] Comment on above: Performed By: #### H S TROP #### [address] Urea nitrogen [Mass/Vol] 20 mg/dL Normal 7-25 [facility] Comment on above: Performed By: #### H S TROP #### [place] [address] [place] Basophils Auto (Bld) [#/Vol] Ordered By: Steven Zamora on 08-22-2022 Basophils (Bld) [#/Vol] 0.0 10*3/uL 0.0-0.2 [facility] Basophils/100 WBC Auto (Bld) Ordered By: Steven Zamora on 08-22-2022 Basophils/100 WBC (Bld) 0.3 % . [facility] Calcium [Mass/volume] in Ser um or PlasmaOrdered By: Steven Zamora on 07-05-2023 Calcium [Mass/Vol] 9.0 mg/dL 8.6-10.3 [facility] Carbon dioxide, total [Moles /volume] in Serum or PlasmaOrdered By: Steven Zamora on 08-22-2022 CO2 [Moles/Vol] 26.0 mmol/L 21.0-31.0 [facility] Chloride [Moles/volume] in S jamin or PlasmaOrdered By: Steven Zamora on 08-22-2022 Chloride [Moles/Vol] 105 mmol/L 98-107 [facility] Complete Blood Count Auto Di ffon 08-22-2022 Basophils (Bld) [#/Vol] 0.0 10*3/uL Normal 0.0-0.2 [facility] Comment on above: Result Comment: PERF ORMED BY: [place] [address] PATHOLOGIST PUMP SERVICE SUPERVISOR DREW REAL M.D. Performed By: #### H S TROP #### [address] Basophils/100 WBC (Bld) 0.3 % Normal . [facility] Comment on above: Performed By: #### H S TROP #### [address] Eosinophils (Bld) [#/Vol] 0.1 10*3/uL Normal 0.0-0.45 [facility] Comment on above: Performed By: #### H S TROP #### [address] Eosinophils/100 WBC (Bld) 1.6 % Normal . [facility] Comment on above: Performed By: #### H S TROP #### [address] Erythrocyte distribution width (RBC) [Ratio] 13.7 % Normal 12.0-14.8 [facility] Comment on above: Performed By: #### H S TROP #### [address] Hematocrit (Bld) [Volume fraction] 41.1 % Normal 38.8-50.0 [facility] Comment on above: Performed By: #### H S TROP #### [facility] [address] Hemoglobin (Bld) [Mass/Vol] 13.9 g/dL Normal 13.0-17.0 [facility] Comment on above: Performed By: #### H S TROP #### [facility] [address] Lymphocytes (Bld) [#/Vol] 1.4 10*3/uL Normal 1.00-4.8 [facility] Comment on above: Performed By: #### H S TROP #### [address] Lymphocytes/100 WBC (Bld) 15.9 % Normal . [facility] Comment on above: Performed By: #### H S TROP #### [address] MCH (RBC) [Entitic mass] 31.5 pg Normal 27.5-35.2 [facility] Comment on above: Performed By: #### H S TROP #### [address] MCV (RBC) [Entitic vol] 92.8 fL Normal 83.5-[address] [facility] Comment on above: Performed By: #### H S TROP #### [address] Mean Corpuscular HGB Conc 33.9 g/dL Normal 32.5-35.6 [facility] Comment on above: Performed By: #### H S TROP #### [place] [address] [place] Monocytes (Bld) [#/Vol] 0.9 10*3/uL High 0.0-0.8 [facility] Comment on above: Performed By: #### H S TROP #### [address] Monocytes/100 WBC (Bld) 9.7 % Normal . [facility] Comment on above: Performed By: #### H S TROP #### [facility] [address] [place] [address] [place] Neutrophils (Bld) [#/Vol] 6.4 10*3/uL Normal 1.8-7.7 [facility] Comment on above: Performed By: #### H S TROP #### [facility] [address] [place] [address] [place] Neutrophils/100 WBC (Bld) 72.5 % Normal . [facility] Comment on above: Performed By: #### H S TROP #### [facility] [address] [place] [address] [place] NRBC% 0.1 /100{WBC} Normal 0-0.5 [facility] Comment on above: Performed By: #### H S TROP #### [address] Platelet mean volume (Bld) [Entitic vol] 9.6 fL Normal 6.6-10.1 [facility] Comment on above: Performed By: #### H S TROP #### [place] [address] [place] Platelets (Bld) [#/Vol] 162 10*3/uL Normal 150-450 [facility] Comment on above: Performed By: #### H S TROP #### [facility] [address] [place] [address] [place] RBC (Bld) [#/Vol] 4.43 10*6/uL Normal 3.90-5.60 [facility] Comment on above: Performed By: #### H S TROP #### [place] [address] [place] WBC (Bld) [#/Vol] 8.8 10*3/uL Normal 4.1-10.5 [facility] Comment on above: Performed By: #### H S TROP #### [place] [address] [place] Creatinine [Mass/volume] in Serum or PlasmaOrdered By: Steven Zamora on 08-22-2022 Creatinine [Mass/Vol] 0.79 mg/dL 0.70-1.30 [facility] ECG 12 lead ECGon 08-22-2022 ECG 12 lead ECG [facility] [place] [address] Electrocardiograph Report Signed Patient: Olaf Briones MR#: [id number] [birth year] : 1945 Acct:[id number] Age/Sex: 77 / M ADM Date: 08/20/22 Loc: Room: [address] [place] [address] Type: ADM IN Attending Dr: Steven Zamora [...] By Joshua Atwood DO 08/22 0906 Normal [facility] ECH echo transthoracicon ECH echo transthoracic [facility] [place] [address] Echocardiogram Signed Patient: Olaf Briones MR#: [id number] 2 : 1945 Acct:[id number] Age/Sex: 77 / M ADM Date: 08/20/22 Loc: Room: [address] [place] [address] Type: ADM IN Attending Dr: Steven Zamora [...] 08/22/22 0837 Signed By: Rojas Resendiz MD, [facility] 08/22/22 1514 Normal [facility] Eosinophils Auto (Bld) [#/Vo l]Ordered By: Steven Zamora on 08-22-2022 Eosinophils (Bld) [#/Vol] 0.1 10*3/uL 0.0-0.45 [facility] Eosinophils/100 WBC Auto (Bl d)Ordered By: Steven Zamora on 08-22-2022 Eosinophils/100 WBC (Bld) 1.6 % . [facility] Erythrocyte distribution wid th Auto (RBC) [Ratio]Ordered By: Steven Zamora on 08-22-2022 Erythrocyte distribution width (RBC) [Ratio] 13.7 % 12.0-14.8 [facility] Glucose [Mass/volume] in Ser um or PlasmaOrdered By: Steven Zamora on 08-22-2022 Glucose [Mass/Vol] 133 mg/dL 70-100 [facility] Comment on above: ADA recommended refe rence rangeRandom Glucose Reference Range is dependent on time and content of last meal. Glucose of more than 200 mg/dL in a nonstressed, ambulatory subject supports the diagnosis of Diabetes Mellitus. Hematocrit Auto (Bld) [Volum e fraction]Ordered By: Steven Zamora on 08-22-2022 Hematocrit (Bld) [Volume fraction] 41.1 % 38.8-50.0 [facility] Hemoglobin [Mass/volume] in BloodOrdered By: Steven Zamora on 08-22-2022 Hemoglobin (Bld) [Mass/Vol] 13.9 g/dL 13.0-17.0 [facility] Leukocytes [#/volume] correc betty for nucleated erythrocytes in Blood by Automated counOrdered By: Steven Zamora on 08-22-2022 WBC corrected for nucl RBC Auto (Bld) [#/Vol] 8.8 10*3/uL 4.1-10.5 [facility] Lymphocytes Auto (Bld) [#/Vo l]Ordered By: Steven Zamora on 08-22-2022 Lymphocytes (Bld) [#/Vol] 1.4 10*3/uL 1.00-4.8 [facility] Lymphocytes/100 WBC Auto (Bl d)Ordered By: Steven Zamora on 08-22-2022 Lymphocytes/100 WBC (Bld) 15.9 % . [facility] MCH Auto (RBC) [Entitic mass ]Ordered By: Steven Zamora on 08-22-2022 MCH (RBC) [Entitic mass] 31.5 pg 27.5-35.2 [facility] MCHC Auto (RBC) [Mass/Vol]Or dered By: Steven Zamora on 08-22-2022 MCHC (RBC) [Mass/Vol] 33.9 g/dL 32.5-35.6 [facility] MCV Auto (RBC) [Entitic vol] Ordered By: Steven Zamora on 08-22-2022 MCV (RBC) [Entitic vol] 92.8 fL 83.5-[address] [facility] Monocytes Auto (Bld) [#/Vol] Ordered By: Steven Zamora on 08-22-2022 Monocytes (Bld) [#/Vol] 0.9 10*3/uL 0.0-0.8 [facility] Monocytes/100 WBC Auto (Bld) Ordered By: Steven Zamora on 08-22-2022 Monocytes/100 WBC (Bld) 9.7 % . [facility] Neutrophils Auto (Bld) [#/Vo l]Ordered By: Steven Zamora on 08-22-2022 Neutrophils (Bld) [#/Vol] 6.4 10*3/uL 1.8-7.7 [facility] Neutrophils/100 WBC Auto (Bl d)Ordered By: Steven Zamora on 08-22-2022 Neutrophils/100 WBC (Bld) 72.5 % . [facility] No Panel InformationOrdered By: Steven Zamora on 08-22-2022 Estimated GFR (CKD-EPI) > 60.0 mL/Min [facility] Creatinine Clearance (Chem 74.81 [facility] No Panel Informationon 08-22 0.0\S\0.0 Normal 0.0-0.2 -[facility] eduardo 250 DO Work Phone: [phone] Comment on above: PERFORMED BY:[facility] [place] [id number] MEDICAL DIRECTORDREW REAL M.D. 0.1\S\0.1 Normal 0-0.5 [facility]u ed[address]ardo 250 DO Work Phone: [phone] 0.9\S\0.9 above high threshold 0.0-0.8 -[facility] eduardo 250 DO Work Phone: [phone] 1.4\S\1.4 Normal 1.00-4.8 -[facility] eduardo 250 DO Work Phone: [phone] 6.4\S\6.4 Normal 1.8-7.7 -[facility] eduardo 250 DO Work Phone: [phone] 0.3\S\0.3 Normal . [facility] ed[address]ardo 250 DO Work Phone: [phone] 1.6\S\1.6 Normal . [facility] ed[address]ardo 250 DO Work Phone: [phone] 9.7\S\9.7 Normal . [facility] ed[address]ardo 250 DO Work Phone: [phone] 15.9\S\15.9 Normal . [facility] ed[address]ardo 250 DO Work Phone: [phone] 72.5\S\72.5 Normal . [facility] ed[address]ardo 250 DO Work Phone: [phone] 9.6\S\9.6 Normal 6.6-10.1 -[facility] eduardo 250 DO Work Phone: [phone] 162\S\162 Normal 150-450 -[facility] eduardo 250 DO Work Phone: [phone] 13.7\S\13.7 Normal 12.0-14.8 [facility] eduardo 250 DO Work Phone: [phone] 33.9\S\33.9 Normal 32.5-35.6 [facility] eduardo 250 DO Work Phone: [phone] 31.5\S\31.5 Normal 27.5-35.2 [facility]-[place] eduardo 250 DO Work Phone: [phone] 92.8\S\92.8 Normal 83.5-101 [facility]-[place] eduardo 250 DO Work Phone: [phone] 41.1\S\41.1 Normal 38.8-50.0 [facility]-[place] eduardo 250 DO Work Phone: [phone] 13.9\S\13.9 Normal 13.0-17.0 [facility] 250 DO Work Phone: [phone] 4.43\S\4.43 Normal 3.90-5.60 [facility] 250 DO Work Phone: [phone] 8.8\S\8.8 Normal 4.1-10.5 [facility]-[place] eduardo 250 DO Work Phone: [phone] > 60.0 Normal [facility] DO Work Phone: [phone] 10.8\S\10.8 Normal 6.0-15.0 [facility] 250 DO Work Phone: [phone] 74.81\S\74.81 Normal [facility]-[place] eduardo 250 DO Work Phone: [phone] Comment on above: PERFORMED BY:[place] [address] [place], [place] [id number] MEDICAL DIRECTORDREW REAL M.D. 9.0\S\9.0 Normal 8.6-10.3 [facility] eduardo 250 DO Work Phone: 26.0\S\26.0 Normal 21.0-31.0 -[facility] [employer] eduardo 250 DO Work Phone: 105\S\105 Normal 98-107 [facility] [employer] eduardo 250 DO Work Phone: 3.8\S\3.8 Normal 3.5-5.1 -[facility] [employer] eduardo 250 DO Work Phone: [phone] 138\S\138 Normal 136-145 -[facility] [employer] eduardo 250 DO Work Phone: 0.79\S\0.79 Normal 0.70-1.30 [facility] [employer] eduardo 250 DO Work Phone: 20\S\20 Normal 7-25 -[facility] [employer]tefyCamacho eduardo 250 DO Work Phone: [phone] 133\S\133 above high threshold 70-100 -[facility] EntefyCamacho eduardo 250 DO Work Phone: Comment on [...] RBC Auto Ql (Bld) 0.1 /100{WBC} 0-0.5 [facility] Platelet mean volume Auto (B ld) [Entitic vol]Ordered By: Steven Zamora on 08-22-2022 Platelet mean volume (Bld) [Entitic vol] 9.6 fL 6.6-10.1 [facility] Platelets Auto (Bld) [#/Vol] Ordered By: Steven Zamora on 08-22-2022 Platelets (Bld) [#/Vol] 162 10*3/uL 150-450 [facility] Potassium [Moles/volume] in Serum or PlasmaOrdered By: Steven Zamora on 08-22-2022 Potassium [Moles/Vol] 3.8 mmol/L 3.5-5.1 [facility] RBC Auto (Bld) [#/Vol]Ordere d By: Steven Zamora on 08-22-2022 RBC (Bld) [#/Vol] 4.43 10*6/uL 3.90-5.60 [facility] Serum or plasma anion gap de terminationOrdered By: Steven Zamora on 08-22-2022 Anion gap [Moles/Vol] 10.8 mmol/L 6.0-15.0 [facility] Sodium [Moles/volume] in Ser um or PlasmaOrdered By: Steven Zamora on 08-22-2022 Sodium [Moles/Vol] 138 mmol/L 136-145 [facility] Urea nitrogen [Mass/volume] in Serum or PlasmaOrdered By: Steven Zamora on 08-22-2022 Urea nitrogen [Mass/Vol] 20 mg/dL 7-25 [facility] WBC Auto (Bld) [#/Vol]Ordere d By: Steven Zamora on 08-22-2022 WBC (Bld) [#/Vol] 8.8 10*3/uL 4.1-10.5 [facility] Basic Metabolic Panelon 070 Anion gap [Moles/Vol] 11.7 mmol/L Normal 6.0-15.0 [facility] Comment on above: Performed By: #### H S TROP #### [facility] [address] [place] [address] [place] Calcium [Mass/Vol] 9.4 mg/dL Normal 8.6-10.3 [facility] Comment on above: Performed By: #### H S TROP #### [facility] [address] [place] [address] [place] Chloride [Moles/Vol] 103 mmol/L Normal 98-107 [facility] Comment on above: Performed By: #### H S TROP #### [facility] [address] [place] [address] [place] CO2 [Moles/Vol] 27.1 mmol/L Normal 21.0-31.0 [facility] Comment on above: Performed By: #### H S TROP #### [facility] [address] [place] [address] [place] Creatinine [Mass/Vol] 0.71 mg/dL Normal 0.70-1.30 [facility] Comment on above: Performed By: #### H S TROP #### [facility] [address] [place] [address] [place] Creatinine Clr Calc Pharmacy 74.81 [facility] Comment on above: Performed By: #### H S TROP #### [facility] [address] [place] [address] [place] GFR/1.73 sq M.predicted MDRD (S/P/Bld) [Vol rate/Area] mL/min/{1.73_m2} [facility] Comment on above: Performed By: #### H S TROP #### [place] [address] [place] Glucose [Mass/Vol] 162 mg/dL High 70-100 [facility] Comment on above: Result Comment: [facility] Glucose Reference Range is dependent on time and content of last meal. Glucose of more than 200 mg/dL in a nonstressed, ambulatory subject supports the diagnosis of Diabetes Mellitus. ADA recommended reference range Performed By: #### H S TROP #### [place] [address] [place] Potassium [Moles/Vol] 3.8 mmol/L Normal 3.5-5.1 [facility] Comment on above: Performed By: #### H S TROP #### [place] [address] [place] Sodium [Moles/Vol] 138 mmol/L Normal 136-145 [facility] Comment on above: Performed By: #### H S TROP #### [place] [address] [place] Urea nitrogen [Mass/Vol] 12 mg/dL Normal 7-25 [facility] Comment on above: Performed By: #### H S TROP #### [facility] [address] [place] [address] [place] Cholesterol [Mass/volume] in Serum or PlasmaOrdered By: Steven Zamora on 08-21-2022 Cholesterol [Mass/Vol] 132 mg/dL 140-200 [facility] Comment on above: Chol less than 200 m g/dl low riskChol 201-239 mg/dl borderline riskChol 240 mg/dl and greater high risk Cholesterol in LDL Calc [Mas s/Vol]Ordered By: Steven Zamora on 08-21-2022 Cholesterol in LDL [Mass/Vol] 62 mg/dL 0-100 [facility] Comment on above: LDL ATP III CLASSIFI CATIONLDL less than 100 mg/dL OptimalLDL 100-129 mg/dL Near or above optimalLDL 130-159 mg/dL Borderline highLDL 160-189 mg/dL HighLDL greater than 189 mg/dL Very high Cholesterol in VLDL Calc [Ma ss/Vol]Ordered By: Steven Zamora on 08-21-2022 Cholesterol in VLDL [Mass/Vol] 24 mg/dL [facility] Complete Blood Count Auto Di ffon 08-21-2022 Basophils (Bld) [#/Vol] 0.0 10*3/uL Normal 0.0-0.2 [facility] Comment on above: Result Comment: PERF ORMED BY: [place] [address] PATHOLOGIST PUMP SERVICE SUPERVISOR DREW REAL M.D. Performed By: #### H S TROP #### [facility] [address] [place] [address] [place] Basophils/100 WBC (Bld) 0.2 % Normal . [facility] Comment on above: Performed By: #### H S TROP #### [facility] [address] [place] [address] [place] Eosinophils (Bld) [#/Vol] 0.0 10*3/uL Normal 0.0-0.45 [facility] Comment on above: Performed By: #### H S TROP #### [facility] [address] [place] [address] [place] Eosinophils/100 WBC (Bld) 0.1 % Normal . [facility] Comment on above: Performed By: #### H S TROP #### [address] Erythrocyte distribution width (RBC) [Ratio] 13.5 % Normal 12.0-14.8 [facility] Comment on above: Performed By: #### H S TROP #### [address] Hematocrit (Bld) [Volume fraction] 42.7 % Normal 38.8-50.0 [facility] Comment on above: Performed By: #### H S TROP #### [address] Hemoglobin (Bld) [Mass/Vol] 14.6 g/dL Normal 13.0-17.0 [facility] Comment on above: Performed By: #### H S TROP #### [address] Lymphocytes (Bld) [#/Vol] 1.1 10*3/uL Normal 1.00-4.8 [facility] Comment on above: Performed By: #### H S TROP #### [address] Lymphocytes/100 WBC (Bld) 8.2 % Normal . [facility] Comment on above: Performed By: #### H S TROP #### [address] MCH (RBC) [Entitic mass] 31.4 pg Normal 27.5-35.2 [facility] Comment on above: Performed By: #### H S TROP #### [address] MCV (RBC) [Entitic vol] 91.6 fL Normal 83.5-[address] [facility] Comment on above: Performed By: #### H S TROP #### [address] Mean Corpuscular HGB Conc 34.3 g/dL Normal 32.5-35.6 [facility] Comment on above: Performed By: #### H S TROP #### [address] Monocytes (Bld) [#/Vol] 0.8 10*3/uL Normal 0.0-0.8 [facility] Comment on above: Performed By: #### H S TROP #### [facility] [address] Monocytes/100 WBC (Bld) 6.1 % Normal . [facility] Comment on above: Performed By: #### H S TROP #### [facility] [address] Neutrophils (Bld) [#/Vol] 11.7 10*3/uL High 1.8-7.7 [facility] Comment on above: Performed By: #### H S TROP #### [address] Neutrophils/100 WBC (Bld) 85.4 % Normal . [facility] Comment on above: Performed By: #### H S TROP #### [facility] [address] [place] [address] NRBC% 0.0 /100{WBC} Normal 0-0.5 [facility] Comment on above: Performed By: #### H S TROP #### [facility] [address] [place] [address] Platelet mean volume (Bld) [Entitic vol] 9.5 fL Normal 6.6-10.1 [facility] Comment on above: Performed By: #### H S TROP #### [facility] [address] [place] [address] [place] Platelets (Bld) [#/Vol] 171 10*3/uL Normal 150-450 [facility] Comment on above: Performed By: #### H S TROP #### [facility] [address] [place] [address] [place] RBC (Bld) [#/Vol] 4.66 10*6/uL Normal 3.90-5.60 [facility] Comment on above: Performed By: #### H S TROP #### [facility] [address] [place] [address] WBC (Bld) [#/Vol] 13.6 10*3/uL High 4.1-10.5 [facility] Comment on above: Performed By: #### H S TROP #### [address] ECG 12 lead ECGon 08-21-2022 ECG 12 lead ECG [facility] [address] [place] [address] [place] [address] Electrocardiograph Report Signed Patient: Olaf Briones MR#: [id number] 2 : 1945 Acct:[id number] Age/Sex: 77 / M ADM Date: 08/20/22 Loc: Room: [address] [place] [address] Type: REG SDC Attending Dr: Steven Zamora [...] Signed By Joshua Atwood DO 08/21 0917 [facility] Glucose Glucometer (BldC) [M ass/Vol]Ordered By: Steven Zamora on 08-21-2022 Glucose [Mass/Vol] 121 mg/dL [facility] Comment on above: Random Glucose Refer ence Range is dependent on time and content of last meal. Glucose of more than 200 mg/dL in a nonstressed, ambulatory subject supports the diagnosis of Diabetes Mellitus. Glucose Poct Glucometerson 0 08-21-2022 Commemt1 Glu2: Cleaned Meter [facility] Comment on above: Result Comment: PERF ORMED BY: [place] [address] PATHOLOGIST PUMP SERVICE SUPERVISOR DREW REAL M.D. Performed By: #### H S TROP #### [address] Glucose [Mass/Vol] 121 mg/dL Normal [facility] Comment on above: Result Comment: [place] om Glucose Reference Range is dependent on time and content of last meal. Glucose of more than 200 mg/dL in a nonstressed, ambulatory subject supports the diagnosis of Diabetes Mellitus. Performed By: #### H S TROP #### [address] Commemt1 Glu2: Cleaned Meter Normal [facility] Comment on above: Result Comment: PERF ORMED BY: [place] [address] PATHOLOGIST PUMP SERVICE SUPERVISOR DREW REAL M.D. Performed By: #### H S TROP #### [address] Glucose [Mass/Vol] 137 mg/dL Normal [facility] Comment on above: Result Comment: [place] Glucose Reference Range is dependent on time and content of last meal. Glucose of more than 200 mg/dL in a nonstressed, ambulatory subject supports the diagnosis of Diabetes Mellitus. Performed By: #### H S TROP #### [address] Laboratory - Chemistry and C hemistry - challengeon 08-21-2022 Cholesterol [Mass/Vol] 132\S\132 below low threshold 140-200 [facility] 250 DO Work Phone: Comment on above: Chol less than 200 m g/dl low risk Chol 201-239 mg/dl borderline risk Chol 240 mg/dl and greater high risk Cholesterol in LDL [Mass/Vol] 62\S\62 Normal 0-100 [facility] DO Work Phone: Comment on above: LDL ATP III CLASSIFI CATION LDL less than 100 mg/dL Optimal LDL 100-129 mg/dL Near or above optimal LDL 130-159 mg/dL Borderline high LDL 160-189 mg/dL High LDL greater than 189 mg/dL Very high Lipid Panelon 08-21-2022 Cholesterol [Mass/Vol] 132 mg/dL Low 140-200 [facility] Comment on above: Result Comment: Chol less than 200 mg/dl low risk Chol 201-239 mg/dl borderline risk Chol 240 mg/dl and greater high risk Performed By: #### H S TROP #### [facility] [address] [place] [id number] [place] Cholesterol in HDL [Mass/Vol] 45 mg/dL Normal 23-92 [facility] Comment on above: Result Comment: HDL CHOL ATP-III CLASSIFICATION Cardiovascular Risk HDL > or equal to 60 mg/dL LOW HDL < 40 mg/dL HIGH Performed By: #### H S TROP #### [facility] [address] [place] [address] [place] Cholesterol.total/Reny sterol in HDL [Mass ratio] 2.9 {ratio} Normal <5.0 [facility] Comment on above: Result Comment: PERF ORMED BY: [place] [address] PATHOLOGIST PUMP SERVICE SUPERVISOR DREW REAL M.D. Performed By: #### H S TROP #### [facility] [address] LDL Cholesterol,Calculated 62 mg/dL Normal 0-100 [facility] Comment on above: Result Comment: LDL ATP III CLASSIFICATION LDL less than 100 mg/dL Optimal LDL 100-129 mg/dL Near or above optimal LDL 130-159 mg/dL Borderline high LDL 160-189 mg/dL High LDL greater than 189 mg/dL Very high Performed By: #### H S TROP #### [facility] [address] [place] [id number] [place] Triglyceride w/Reflex 124 mg/dL Normal 0-149 [facility] Comment on above: Result Comment: TRIG ATP III CLASSIFICATION TRIG less than 150 mg/dL Normal TRIG 150-199 mg/dL Borderline high TRIG 200-500 mg/dL High TRIG greater than 500 mg/dL Very high Standard traceable to the Center for Disease Conrtrol and Prevention (CDC) test method. Performed By: #### H S TROP #### [facility] [address] VLDL CHOLESTEROL 24 mg/dL Normal [facility] Comment on above: Performed By: #### H S TROP #### [facility] [address] No Panel InformationOrdered By: Steven Zamora on 08-21-2022 Bedside Glucose Comment Glu2: cleaned meter [facility] No Panel Informationon 08-21 Glu2: Cleaned Meter Normal -No rth [facility] eduardo 250 DO Work Phone: Comment on above: PERFORMED BY:[place] [address] [address] [place], [place] [phone] MEDICAL DIRECTORDREW REAL M.D. 121\S\121 Normal [facility] 250 DO Work Phone: Comment on above: Random Glucose Refer ence Range is dependent on time and content of last meal. Glucose of more than 200 mg/dL in a nonstressed, ambulatory subject supports the diagnosis of Diabetes Mellitus. Glu2: Cleaned Meter Normal -No rth [facility] 250 DO Work Phone: Comment on above: PERFORMED BY:[place] [address] [address] [place], [place] [phone] MEDICAL DIRECTORDREW REAL M.D. 137\S\137 Normal [facility] 250 DO Work Phone: Comment on above: Random Glucose Refer ence Range is dependent on time and content of last meal. Glucose of more than 200 mg/dL in a nonstressed, ambulatory subject supports the diagnosis of Diabetes Mellitus. 0.0\S\0.0 Normal 0-0.5 [facility] 250 DO Work Phone: Comment on above: PERFORMED BY:[place] [address] [place] [place], [place] [phone] MEDICAL DIRECTORDREW REAL M.D. 0.8\S\0.8 Normal 0.0-0.8 [facility] eduardo 250 DO Work Phone: [phone] 1.1\S\1.1 Normal 1.00-4.8 [facility] eduardo 250 DO Work Phone: [phone] 11.7\S\11.7 Normal 6.0-15.0 [facility] eduardo 250 DO Work Phone: [phone] 0.2\S\0.2 Normal . [facility] eduardo 250 DO Work Phone: [phone] 0.1\S\0.1 Normal . [facility] eduardo 250 DO Work Phone: [phone] 6.1\S\6.1 Normal . [facility] eduardo 250 DO Work Phone: [phone] 8.2\S\8.2 Normal . [facility] eduardo 250 DO Work Phone: [phone] 85.4\S\85.4 Normal . [facility] eduardo 250 DO Work Phone: [phone] 9.5\S\9.5 Normal 6.6-10.1 [facility] eduardo 250 DO Work Phone: [phone] 171\S\171 Normal 150-450 [facility] eduardo 250 DO Work Phone: [phone] 13.5\S\13.5 Normal 12.0-14.8 [facility] eduardo 250 DO Work Phone: [phone] 34.3\S\34.3 Normal 32.5-35.6 [facility] eduardo 250 DO Work Phone: [phone] 31.4\S\31.4 Normal 27.5-35.2 [facility] eduardo 250 DO Work Phone: [phone] 91.6\S\91.6 Normal 83.5-101 [facility] eduardo 250 DO Work Phone: [phone] 42.7\S\42.7 Normal 38.8-50.0 [facility] eduardo 250 DO Work Phone: [phone] 14.6\S\14.6 Normal 13.0-17.0 [facility] eduardo 250 DO Work Phone: [phone] 4.66\S\4.66 Normal 3.90-5.60 [facility] eduardo 250 DO Work Phone: [phone] 13.6\S\13.6 above high threshold 4.1-10.5 -[facility] eduardo 250 DO Work Phone: > 60.0 Normal [facility] eduardo 250 DO Work Phone: [phone] 74.81\S\74.81 Normal [facility] eduardo 250 DO Work Phone: [phone] 9.4\S\9.4 Normal 8.6-10.3 [facility] eduardo 250 DO Work Phone: 27.1\S\27.1 Normal 21.0-31.0 [facility] eduardo 250 DO Work Phone: 103\S\103 Normal 98-107 [facility] eduardo 250 DO Work Phone: [phone] 3.8\S\3.8 Normal 3.5-5.1 [facility] eduardo 250 DO Work Phone: [phone] 138\S\138 Normal 136-145 [facility] eduardo 250 DO Work Phone: [phone] 0.71\S\0.71 Normal 0.70-1.30 [facility] eduardo 250 DO Work Phone: [phone] 12\S\12 Normal 7-25 [facility] eduardo 250 DO Work Phone: 162\S\162 above high threshold 70-100 [facility] [employer] DO Work Phone: Comment on above: Random Glucose Refer ence Range is dependent on time and content of last meal. Glucose of more than 200 mg/dL in a nonstressed, ambulatory subject supports the diagnosis of Diabetes Mellitus. ADA recommended reference range 2.9\S\2.9 Normal <5.0 [facility] [employer] DO Work Phone: Comment on above: PERFORMED BY:[place] [address] [address] [place] [phone] MEDICAL DIRECTORDREW REAL M.D. 24\S\24 Normal [facility] eduardo [employer] DO Work Phone: 124\S\124 Normal 0-149 [facility] Work Phone: Comment on above: TRIG ATP III CLASSIF ICATION TRIG less than 150 mg/dL Normal TRIG 150-199 mg/dL Borderline high TRIG 200-500 mg/dL High TRIG greater than 500 mg/dL Very high Standard traceable to the Center for Disease Conrtrol and Prevention (CDC) test method. 45\S\45 Normal 23-92 [facility] [employer] clark [employer] DO Work Phone: Comment on above: HDL CHOL ATP-III CLA SSIFICATION Cardiovascular Risk HDL > or equal to 60 mg/dL LOW HDL < 40 mg/dL HIGH 10155.9\S\15616.9 Critically high 0.0-20.0 [facility] [employer] DO Work Phone: Comment on above: Critical Result : Ca lled to and read back by: MARC BUSTILLOS at: 08/21/2022 06:30:29 by:[id number] BY:[place] [address] [address] [place] [phone] MEDICAL DIRECTORDREW REAL M.D. 15382.9\S\32058.9 Critically high 0.0-20.0 [facility] eduardo 250 DO Work Phone: Comment on above: Critical Result : Ca lled to and read back by: RIDGE WATERS at: 08/21/2022 04:23:36 by:[id number] BY:[place] [address] [address] [place], [place] [phone] MEDICAL DIRECTORDREW REAL M.D. 04152.3\S\90512.3 Critically high 0.0-20.0 [facility] 250 DO Work Phone: Comment on above: Critical Result : Ca lled to and read back by: SALLY BUSTILLOS at: 08/21/2022 00:52:26 by:[id number] BY:[place] [address] [address] [place], [place] [phone] MEDICAL DIRECTORDREW REAL M.D. Serum or plasma high density lipoprotein (HDL) cholesterol measurementOrdered By: Steven Zamora on 08-21-2022 Cholesterol in HDL [Mass/Vol] 45 mg/dL 23-92 [facility] Comment on above: HDL CHOL ATP-III CLA SSIFICATION Cardiovascular RiskHDL > or equal to 60 mg/dL LOWHDL < 40 mg/dL HIGH Serum or plasma total choles terol/high density lipoprotein (HDL) cholesterol mass ratOrdered By: Steven Zamora on 08-21-2022 Cholesterol.total/Reny sterol in HDL [Mass ratio] 2.9 {ratio} <5.0 [facility] Triglyceride [Mass/volume] i n Serum or PlasmaOrdered By: Steven Zamora on 08-21-2022 Triglyceride [Mass/Vol] 124 mg/dL 0-[address] [facility] Comment on above: TRIG ATP III CLASSIF ICATIONTRIG less than 150 mg/dL NormalTRIG 150-199 mg/dL Borderline highTRIG 200-500 mg/dL High TRIG greater than 500 mg/dL Very highStandard traceable to the Center for Disease Conrtrol and Prevention (CDC) test method. Troponin I High Sensitivityo n 08-21-2022 Troponin I High Sensitivity 23400.9 pg/mL Off scale high 0.0-20.0 [facility] Comment on above: Result Comment: Crit ical Result : Called to and read back by: MARC BUSTILLOS at: 08/21/2022 06:30:29 by:[id number] PERFORMED BY: [place] [address] PATHOLOGIST PUMP SERVICE SUPERVISOR DREW REAL M.D. Performed By: #### H S TROP #### [facility] [address] [place] [address] Troponin I High Sensitivity 26555.9 pg/mL Off scale high 0.0-20.0 [facility] Comment on above: Result Comment: Crit ical Result : Called to and read back by: RIDGE WATERS at: 08/21/2022 04:23:36 by:[id number] PERFORMED BY: [place] [address] PATHOLOGIST PUMP SERVICE SUPERVISOR DREW REAL M.D. Performed By: #### H S TROP #### [address] Troponin I High Sensitivity 74194.3 pg/mL Off scale high 0.0-20.0 [facility] Comment on above: Result Comment: Crit ical Result : Called to and read back by: SALLY BUSTILLOS at: 08/21/2022 00:52:26 by:[id number] PERFORMED BY: [place] [address] PATHOLOGIST PUMP SERVICE SUPERVISOR DREW REAL M.D. Performed By: #### H S TROP #### [facility] [address] [place] [address] Troponin I.cardiac [Mass/vol ume] in Serum or Plasma by Detection limit <= 0.01 ng/Ordered By: Steven Zamora on 08-21-2022 Troponin I.cardiac DL <= 0.01 ng/mL [Mass/Vol] 56124.9 pg/mL 0.0-20.0 [facility] Comment on above: Critical Result : Ca lled to and read back by: MARC BUSTILLOS at: 08/21/2022 06:30:29 by:[id number] Activated partial thrombopla stin time (aPTT) in platelet poor plasma by coagulation aOrdered By: Cirilo Wise on 08-20-2022 aPTT Coag (PPP) [Time] 25.1 s 25.1-36.5 [facility] B-Type Natriuretic Peptideon 08-20-2022 Natriuretic peptide B (Bld) [Mass/Vol] 24.0 pg/mL Normal 5-100 [facility] Comment on above: Result Comment: PERF ORMED BY: [place] [address] PATHOLOGIST PUMP SERVICE SUPERVISOR DREW REAL M.D. Performed By: #### B RELIGIOUS STUDIES PROFESSOR, CK, CBC, HS TROP, BMP, PT, PTT #### [address] Basic Metabolic Panelon Anion gap [Moles/Vol] 14.1 mmol/L Normal 6.0-15.0 [facility] Comment on above: Performed By: #### B RELIGIOUS STUDIES PROFESSOR, CK, CBC, HS TROP, BMP, PT, PTT #### [address] Calcium [Mass/Vol] 9.4 mg/dL Normal 8.6-10.3 [facility] Comment on above: Performed By: #### B RELIGIOUS STUDIES PROFESSOR, CK, CBC, HS TROP, BMP, PT, PTT #### [address] Chloride [Moles/Vol] 105 mmol/L Normal 98-107 [facility] Comment on above: Performed By: #### B RELIGIOUS STUDIES PROFESSOR, CK, CBC, HS TROP, BMP, PT, PTT #### [address] CO2 [Moles/Vol] 24.3 mmol/L Normal 21.0-31.0 [facility] Comment on above: Performed By: #### B RELIGIOUS STUDIES PROFESSOR, CK, CBC, HS TROP, BMP, PT, PTT #### [facility] [address] Creatinine [Mass/Vol] 0.92 mg/dL Normal 0.70-1.30 [facility] Comment on above: Performed By: #### B RELIGIOUS STUDIES PROFESSOR, CK, CBC, HS TROP, BMP, PT, PTT #### [facility] [address] Creatinine Clr Calc Pharmacy 65.05 [facility] Comment on above: Result Comment: PERF ORMED BY: [place] [address] PATHOLOGIST PUMP SERVICE SUPERVISOR DREW REAL M.D. Performed By: #### B RELIGIOUS STUDIES PROFESSOR, CK, CBC, HS TROP, BMP, PT, PTT #### [address] GFR/1.73 sq M.predicted MDRD (S/P/Bld) [Vol rate/Area] mL/min/{1.73_m2} [facility] Comment on above: Performed By: #### B RELIGIOUS STUDIES PROFESSOR, CK, CBC, HS TROP, BMP, PT, PTT #### [facility] [address] Glucose [Mass/Vol] 172 mg/dL High 70-100 [facility] Comment on above: Result Comment: [facility] Glucose Reference Range is dependent on time and content of last meal. Glucose of more than 200 mg/dL in a nonstressed, ambulatory subject supports the diagnosis of Diabetes Mellitus. ADA recommended reference range Performed By: #### B RELIGIOUS STUDIES PROFESSOR, CK, CBC, HS TROP, BMP, PT, PTT #### [facility] [address] Potassium [Moles/Vol] 3.4 mmol/L Low 3.5-5.1 [facility] Comment on above: Performed By: #### B RELIGIOUS STUDIES PROFESSOR, CK, CBC, HS TROP, BMP, PT, PTT #### [facility] [address] Sodium [Moles/Vol] 140 mmol/L Normal 136-145 [facility] Comment on above: Performed By: #### B RELIGIOUS STUDIES PROFESSOR, CK, CBC, HS TROP, BMP, PT, PTT #### [facility] [address] Urea nitrogen [Mass/Vol] 15 mg/dL Normal 7-25 [facility] Comment on above: Performed By: #### B RELIGIOUS STUDIES PROFESSOR, CK, CBC, HS TROP, BMP, PT, PTT #### [facility] [address] Basophils Auto (Bld) [#/Vol] Ordered By: Cirilo Wise on 08-20-2022 Basophils (Bld) [#/Vol] 0.1 10*3/uL 0.0-0.2 [facility] Basophils/100 WBC Auto (Bld) Ordered By: Cirilo Wise on 08-20-2022 Basophils/100 WBC (Bld) 0.5 % . [facility] Calcium [Mass/volume] in Ser um or PlasmaOrdered By: Cirilo Wise on 08-20-2022 Calcium [Mass/Vol] 9.4 mg/dL 8.6-10.3 [facility] Carbon dioxide, total [Moles /volume] in Serum or PlasmaOrdered By: Cirilo Wise on 08-20-2022 CO2 [Moles/Vol] 24.3 mmol/L 21.0-31.0 [facility] Chloride [Moles/volume] in S jmain or PlasmaOrdered By: Cirilo Wise on 08-20-2022 Chloride [Moles/Vol] 105 mmol/L 98-107 [facility] Complete Blood Count Auto Di ffon 08-20-2022 Basophils (Bld) [#/Vol] 0.1 10*3/uL Normal 0.0-0.2 [facility] Comment on above: Result Comment: PERF ORMED BY: [facility] [address] [place] [address] PATHOLOGIST PUMP SERVICE SUPERVISOR DREW REAL M.D. Performed By: #### B RELIGIOUS STUDIES PROFESSOR, CK, CBC, HS TROP, BMP, PT, PTT #### [facility] [address] Basophils/100 WBC (Bld) 0.5 % Normal . [facility] Comment on above: Performed By: #### B RELIGIOUS STUDIES PROFESSOR, CK, CBC, HS TROP, BMP, PT, PTT #### [address] Eosinophils (Bld) [#/Vol] 0.1 10*3/uL Normal 0.0-0.45 [facility] Comment on above: Performed By: #### B RELIGIOUS STUDIES PROFESSOR, CK, CBC, HS TROP, BMP, PT, PTT #### [address] Eosinophils/100 WBC (Bld) 1.3 % Normal . [facility] Comment on above: Performed By: #### B RELIGIOUS STUDIES PROFESSOR, CK, CBC, HS TROP, BMP, PT, PTT #### [address] Erythrocyte distribution width (RBC) [Ratio] 13.6 % Normal 12.0-14.8 [facility] Comment on above: Performed By: #### B RELIGIOUS STUDIES PROFESSOR, CK, CBC, HS TROP, BMP, PT, PTT #### [address] Hematocrit (Bld) [Volume fraction] 44.0 % Normal 38.8-50.0 [facility] Comment on above: Performed By: #### B RELIGIOUS STUDIES PROFESSOR, CK, CBC, HS TROP, BMP, PT, PTT #### [address] Hemoglobin (Bld) [Mass/Vol] 15.1 g/dL Normal 13.0-17.0 [facility] Comment on above: Performed By: #### B RELIGIOUS STUDIES PROFESSOR, CK, CBC, HS TROP, BMP, PT, PTT #### [address] Lymphocytes (Bld) [#/Vol] 2.8 10*3/uL Normal 1.00-4.8 [facility] Comment on above: Performed By: #### B RELIGIOUS STUDIES PROFESSOR, CK, CBC, HS TROP, BMP, PT, PTT #### [address] Lymphocytes/100 WBC (Bld) 26.2 % Normal . [facility] Comment on above: Performed By: #### B RELIGIOUS STUDIES PROFESSOR, CK, CBC, HS TROP, BMP, PT, PTT #### [address] MCH (RBC) [Entitic mass] 32.1 pg Normal 27.5-35.2 [facility] Comment on above: Performed By: #### B RELIGIOUS STUDIES PROFESSOR, CK, CBC, HS TROP, BMP, PT, PTT #### [address] MCV (RBC) [Entitic vol] 93.4 fL Normal 83.5-[address] [facility] Comment on above: Performed By: #### B RELIGIOUS STUDIES PROFESSOR, CK, CBC, HS TROP, BMP, PT, PTT #### [address] Mean Corpuscular HGB Conc 34.4 g/dL Normal 32.5-35.6 [facility] Comment on above: Performed By: #### B RELIGIOUS STUDIES PROFESSOR, CK, CBC, HS TROP, BMP, PT, PTT #### [address] Monocytes (Bld) [#/Vol] 0.9 10*3/uL High 0.0-0.8 [facility] Comment on above: Performed By: #### B RELIGIOUS STUDIES PROFESSOR, CK, CBC, HS TROP, BMP, PT, PTT #### [address] Monocytes/100 WBC (Bld) 16.35 % Normal 0.00-20.[address] [facility] Comment on above: Performed By: #### B RELIGIOUS STUDIES PROFESSOR, CK, CBC, HS TROP, BMP, PT, PTT #### [address] Monocytes/100 WBC (Bld) 7.9 % Normal . [facility] Comment on above: Performed By: #### B RELIGIOUS STUDIES PROFESSOR, CK, CBC, HS TROP, BMP, PT, PTT #### [place] [id number] [place] Neutrophils (Bld) [#/Vol] 6.9 10*3/uL Normal 1.8-7.7 [facility] Comment on above: Performed By: #### B RELIGIOUS STUDIES PROFESSOR, CK, CBC, HS TROP, BMP, PT, PTT #### [address] Neutrophils/100 WBC (Bld) 64.1 % Normal . [facility] Comment on above: Performed By: #### B RELIGIOUS STUDIES PROFESSOR, CK, CBC, HS TROP, BMP, PT, PTT #### [address] NRBC% 0.1 /100{WBC} Normal 0-0.5 [facility] Comment on above: Performed By: #### B RELIGIOUS STUDIES PROFESSOR, CK, CBC, HS TROP, BMP, PT, PTT #### [address] Platelet mean volume (Bld) [Entitic vol] 9.7 fL Normal 6.6-10.1 [facility] Comment on above: Performed By: #### B RELIGIOUS STUDIES PROFESSOR, CK, CBC, HS TROP, BMP, PT, PTT #### [address] Platelets (Bld) [#/Vol] 215 10*3/uL Normal 150-450 [facility] Comment on above: Performed By: #### B RELIGIOUS STUDIES PROFESSOR, CK, CBC, HS TROP, BMP, PT, PTT #### [address] RBC (Bld) [#/Vol] 4.71 10*6/uL Normal 3.90-5.60 [facility] Comment on above: Performed By: #### B RELIGIOUS STUDIES PROFESSOR, CK, CBC, HS TROP, BMP, PT, PTT #### [address] WBC (Bld) [#/Vol] 10.7 10*3/uL High 4.1-10.5 [facility] Comment on above: Performed By: #### B RELIGIOUS STUDIES PROFESSOR, CK, CBC, HS TROP, BMP, PT, PTT #### [facility] [facility] [address] [place] [address] [place] Creatine Kinaseon 08-20-2022 CK [Catalytic activity/Vol] 115 U/L Normal [facility] Comment on above: Performed By: #### B RELIGIOUS STUDIES PROFESSOR, CK, CBC, HS TROP, BMP, PT, PTT #### [facility] [address] [place] [id number] [facility] Creatine kinase [Enzymatic a ctivity/volume] in Serum or PlasmaOrdered By: Cirilo Wise on 08-20-2022 CK [Catalytic activity/Vol] 115 U/L [facility] Creatinine [Mass/volume] in Serum or PlasmaOrdered By: Cirilo Wise on 08-20-2022 Creatinine [Mass/Vol] 0.92 mg/dL 0.70-1.30 [facility] ECG 12 lead ECGon 08-20-2022 ECG 12 lead ECG [facility] [place] [address] [place] [address] Electrocardiograph Report Signed Patient: Olaf Briones MR#: [id number] 2 : 1945 Acct:[id number] Age/Sex: 77 / M ADM Date: 08/20/22 Loc: Room: [address] [place] [address] Type: REG [facility] Attending Dr: Steven Zamora DO Ordering Provider: [...] , age undetermined Inferior injury pattern ACUTE [place] / STEMI Consider right ventricular involvement in acute inferior infarct Abnormal ECG No previous ECGs available Confirmed by SHANNON COCRHAN DO ([id number]) on 08/21/2022 2:06:14 AM Referred By: Electronically Signed By:SHANNON COCHRAN DO Transcribed By: MUS Signed By Shannon Cochran DO 08/21 0206 Normal [facility] Eosinophils Auto (Bld) [#/Vo l]Ordered By: Cirilo Wise on 08-20-2022 Eosinophils (Bld) [#/Vol] 0.1 10*3/uL 0.0-0.45 [facility] Eosinophils/100 WBC Auto (Bl d)Ordered By: Cirilo Wise on 08-20-2022 Eosinophils/100 WBC (Bld) 1.3 % . [facility] Erythrocyte distribution wid th Auto (RBC) [Ratio]Ordered By: Cirilo Wise on 08-20-2022 Erythrocyte distribution width (RBC) [Ratio] 13.6 % 12.0-14.8 [facility] Glucose [Mass/volume] in Ser um or PlasmaOrdered By: Cirilo Wise on 08-20-2022 Glucose [Mass/Vol] 172 mg/dL 70-100 [facility] Comment on above: ADA recommended refe rence rangeRandom Glucose Reference Range is dependent on time and content of last meal. Glucose of more than 200 mg/dL in a nonstressed, ambulatory subject supports the diagnosis of Diabetes Mellitus. Hematocrit Auto (Bld) [Volum e fraction]Ordered By: Cirilo Wise on 08-20-2022 Hematocrit (Bld) [Volume fraction] 44.0 % 38.8-50.0 [facility] Hemoglobin [Mass/volume] in BloodOrdered By: Cirilo Wise on 08-20-2022 Hemoglobin (Bld) [Mass/Vol] 15.1 g/dL 13.0-17.0 [facility] Laboratory - CoagulationOrde red By: Cirilo Wise on 08-20-2022 PT Coag (PPP) [Time] 11.4 s 9.0-12.9 [facility] Leukocytes [#/volume] correc betty for nucleated erythrocytes in Blood by Automated counOrdered By: Cirilo Wise on 08-20-2022 WBC corrected for nucl RBC Auto (Bld) [#/Vol] 10.7 10*3/uL 4.1-10.5 [facility] Lymphocytes Auto (Bld) [#/Vo l]Ordered By: Cirilo Wise on 08-20-2022 Lymphocytes (Bld) [#/Vol] 2.8 10*3/uL 1.00-4.8 [facility] Lymphocytes/100 WBC Auto (Bl d)Ordered By: Cirilo iWse on 08-20-2022 Lymphocytes/100 WBC (Bld) 26.2 % . [facility] MCH Auto (RBC) [Entitic mass ]Ordered By: Cirilo Wise on 08-20-2022 MCH (RBC) [Entitic mass] 32.1 pg 27.5-35.2 [facility] MCHC Auto (RBC) [Mass/Vol]Or dered By: Cirilo Wise on 08-20-2022 MCHC (RBC) [Mass/Vol] 34.4 g/dL 32.5-35.6 [facility] MCV Auto (RBC) [Entitic vol] Ordered By: Cirilo Wise on 08-20-2022 MCV (RBC) [Entitic vol] 93.4 fL 83.5-[address] [facility] Monocyte distribution width [Entitic volume] in Blood by AutomatedOrdered By: Cirilo Wise on 08-20-2022 Monocyte distribution width Auto (Bld) [Entitic vol] 16.35 % 0.00-20.00 [facility] Monocytes Auto (Bld) [#/Vol] Ordered By: Cirilo Wise on 08-20-2022 Monocytes (Bld) [#/Vol] 0.9 10*3/uL 0.0-0.8 [facility] Monocytes/100 WBC Auto (Bld) Ordered By: Cirilo Wise on 08-20-2022 Monocytes/100 WBC (Bld) 7.9 % . [facility] Natriuretic peptide B [Mass/ Vol]Ordered By: Cirilo Wise on 08-20-2022 Natriuretic peptide B (Bld) [Mass/Vol] 24.0 pg/mL 5-100 [facility] Neutrophils Auto (Bld) [#/Vo l]Ordered By: Cirilo Wise on 08-20-2022 Neutrophils (Bld) [#/Vol] 6.9 10*3/uL 1.8-7.7 [facility] Neutrophils/100 WBC Auto (Bl d)Ordered By: Cirilo Wise on 08-20-2022 Neutrophils/100 WBC (Bld) 64.1 % . [facility] No Panel Informationon 08-20 2529.3\S\2529.3 Critically high 0.0-20.0 [facility] eduardo 250 DO Work Phone: Comment on above: Critical Result : Ca lled to and read back by: ARY BUSTILLOS at: 08/20/2022 19:45:52 by:[id number] BY:[facility] [place], [place] [id number] MEDICAL DIRECTORDREW REAL M.D. No Panel InformationOrdered By: Cirilo Wise on 08-20-2022 Estimated GFR (CKD-EPI) > 60.0 mL/Min [facility] Creatinine Clearance (Chem 65.05 [facility] Nucleated erythrocytes [Pres ence] in Blood by Automated countOrdered By: Cirilo Wise on 08-20-2022 Nucleated RBC Auto Ql (Bld) 0.1 /100{WBC} 0-0.5 [facility] Partial Thromboplastin Timeo n 08-20-2022 aPTT Coag (Bld) [Time] 25.1 s Normal 25.1-36.5 [facility] Comment on above: Result Comment: PERF ORMED BY: [facility] [address] [place] [address] PATHOLOGIST PUMP SERVICE SUPERVISOR DREW REAL M.D. Performed By: #### B RELIGIOUS STUDIES PROFESSOR, CK, CBC, HS TROP, BMP, PT, PTT #### [facility] [address] [place] [id number] [facility] Platelet mean volume Auto (B ld) [Entitic vol]Ordered By: Cirilo Wise on 08-20-2022 Platelet mean volume (Bld) [Entitic vol] 9.7 fL 6.6-10.1 [facility] Platelet poor plasma interna tional normalized ratio (INR) by coagulation assay (relatOrdered By: Cirilo Wise on 08-20-2022 INR Coag (PPP) [Relative time] 1.0 {INR} [facility] Comment on above: INR Therapeutic Rang [...] 08-20-2022 Platelets (Bld) [#/Vol] 215 10*3/uL 150-450 [facility] Potassium [Moles/volume] in Serum or PlasmaOrdered By: Cirilo Wise on 08-20-2022 Potassium [Moles/Vol] 3.4 mmol/L 3.5-5.1 [facility] Prothrombin Time INRon 08-20 INR Coag (PPP) [Relative time] 1.0 {INR} Normal [facility] Comment on above: Result Comment: INR [...] 3 - 4.5 Performed By: #### B RELIGIOUS STUDIES PROFESSOR, CK, CBC, HS TROP, BMP, PT, PTT #### [facility] [address] PT Coag (PPP) [Time] 11.4 s Normal 9.0-12.9 [facility] Comment on above: Performed By: #### B RELIGIOUS STUDIES PROFESSOR, CK, CBC, HS TROP, BMP, PT, PTT #### [facility] [address] RBC Auto (Bld) [#/Vol]Ordere d By: Cirilo Wise on 08-20-2022 RBC (Bld) [#/Vol] 4.71 10*6/uL 3.90-5.60 [facility] Serum or plasma anion gap de terminationOrdered By: Cirilo Wise on 08-20-2022 Anion gap [Moles/Vol] 14.1 mmol/L 6.0-15.0 [facility] Sodium [Moles/volume] in Ser um or PlasmaOrdered By: Cirilo Wise on 08-20-2022 Sodium [Moles/Vol] 140 mmol/L 136-145 [facility] Troponin I High Sensitivityo n 08-20-2022 Troponin I High Sensitivity 9010.4 pg/mL Off scale high 0.0-20.0 [facility] Comment on above: Result Comment: Crit ical Result : Called to and read back by: ARY BUSTILLOS at: 08/20/2022 22:35:19 by:[id number] PERFORMED BY: [place] [address] PATHOLOGIST PUMP SERVICE SUPERVISOR DREW REAL M.D. Performed By: #### H S TROP #### [facility] [address] [place] [address] Troponin I High Sensitivity 2529.3 pg/mL Off scale high 0.0-20.0 [facility] Comment on above: Result Comment: Crit ical Result : Called to and read back by: ARY BUSTILLOS at: 08/20/2022 19:45:52 by:[id number] PERFORMED BY: [place] [phone] PATHOLOGIST PUMP SERVICE SUPERVISOR DREW REAL M.D. Performed By: #### H S TROP #### [facility] [address] [place] [address] Troponin I High Sensitivity 366.3 pg/mL Off scale high 0.0-20.0 [facility] Comment on above: Result Comment: Crit ical Result : Called to and read back by: SHANNON FERREIRA at: 08/20/2022 17:43:14 by:[id number] PERFORMED BY: [place] [address] PATHOLOGIST PUMP SERVICE SUPERVISOR DREW REAL M.D. Performed By: #### H S TROP #### [address] Troponin I.cardiac [Mass/vol ume] in Serum or Plasma by Detection limit <= 0.01 ng/Ordered By: Cirilo Wise on 08-20-2022 Troponin I.cardiac DL <= 0.01 ng/mL [Mass/Vol] 366.3 pg/mL 0.0-20.0 [facility] Comment on above: Critical Result : Ca lled to and read back by: SHANNON FERREIRA at: 08/20/2022 17:43:14 by:[id number] Urea nitrogen [Mass/volume] in Serum or PlasmaOrdered By: Cirilo Wise on 08-20-2022 Urea nitrogen [Mass/Vol] 15 mg/dL 09-11 [facility] WBC Auto (Bld) [#/Vol]Ordere d By: Cirilo Wise on 08-20-2022 WBC (Bld) [#/Vol] 10.7 10*3/uL 4.1-10.5 [facility] XR chest 1Von 08-20-2022 XR chest 1V [facility] [place] [address] [place] [address] XRay Report Signed Patient: Olaf Briones MR#: [id number] 2 : 1945 Acct:[id number] Age/Sex: 77 / M ADM Date: 08/20/22 Loc: Room: Type: [facility] Attending Dr: Steven Zamora DO [...] Lucinda Monreal M.D.08/20/2022 4:50 PM Dictation Location: [place] [address] Transcribed By: [facility] 08/20/22 1650 Dictated By: Lucinda Monreal MD 08/20/22 1648 Signed By: 08/20/22 1650 [facility] Office Visit (Cardiology)on 06-01-2022 Follow-up visit [...] Weight Tips; Status:Complete - Retrospective Authorization; Done: [id number] Some eating tips that can help you lose weight.; Status:Complete - Retrospective Authorization; Done: [id number] SocHx: Former smoker Tobacco Use Screening; Status:Complete; Done: [id number] Patient Instructions Please bring all medicines, vitamins, [...] in 1 year. Lab as scheduled with [place] Chief Complaint OLAF BRIONES is being seen [...] negative for complaint. Vitals Vital Signs Recorded: [id number] 10:52AMRecorded: [id number] 10:34AM [id number], LUE, Sitting Mlkaujcui5494, LUE, Sitting Heart Rate72, L Radial Height5 ft 6 in Krddgk515 lb BMI Zwvsxkmkfm55.73 kg/m2 BSA Calculated1.9 Tobacco Useb) No PHQ-2 #1. Over the last 2 weeks have you felt down, depressed (more content not included)... Normal [employer] XR KUB 1 VIEWon 10-26-2021 XR KUB [...] by: AMNA BALDWIN Date: 2021-10-26 10:33 Normal [facility] Office Visit (Cardiology)on 09-18-2021 Follow-up visit [...] Former smoker Tobacco Use Screening; Status:Complete; Done: [id number] Tobacco Use Screening; Status:Complete; Done: [id number] Patient Instructions Please bring all medicines, vitamins, [...] Recorded: 18Sep2021 10:16AM Heart Rate64, L Radial Visfudcf469, (more content not included)... Normal [employer] Tobacco Screening.on 022 Fall risk assessment a) No falls within the last year [facility] [employer] 250 DO Work Phone: Tobacco use status [facility] b) No [facility] [employer] 250 DO Work Phone: IO EKG Electrocardiogram- 12 Leadon 11-24-2020 IO EKG Electrocardiogram- 12 Lead See Scanned Document [facility] [employer] 250 DO Work Phone: Tobacco Screening.on 021 Fall risk assessment a) No falls within the last year [facility] [employer] eduardo 250 DO Work Phone: Tobacco use status [facility] b) No [facility] [employer] 250 DO Work Phone: Vital Signs Date Time Vital Sign Value Performing Clinician Facility 06-26-2023 15:02-0400 Body height 172.7 cm Ashutosh Ling MD Work Phone: [facility] 06-26-2023 15:02-0400 Body mass index (BMI) [Ratio] 26.15 kg/m2 Ashutosh Ling MD Work Phone: [facility] 06-26-2023 15:02-0400 Body weight 78.02 kg Ashutosh Ling MD Work Phone: [facility] 06-26-2023 15:02-0400 Diastolic blood pressure 68 mm[Hg] Ashutosh Ling MD Work Phone: [facility] 06-26-2023 15:02-0400 Heart rate 60 /min Ashutosh Ling MD Work Phone: [facility] 06-26-2023 15:02-0400 Systolic blood pressure 120 mm[Hg] Ashutosh Ling MD Work Phone: [facility] 01-09-2023 15:38-0500 Body height 172.7 cm Ashutosh Ling MD Work Phone: [facility] 01-09-2023 15:38-0500 Body mass index (BMI) [Ratio] 26.76 kg/m2 Ashutosh Ling MD Work Phone: [facility] 01-09-2023 15:38-0500 Body weight 79.83 kg Ashutosh Ling MD Work Phone: [facility] 01-09-2023 15:38-0500 Diastolic blood pressure 76 mm[Hg] Ashutosh Ling MD Work Phone: [facility] 01-09-2023 15:38-0500 Heart rate 58 /min Ashutosh Ling MD Work Phone: [facility] 01-09-2023 15:38-0500 Systolic blood pressure 142 mm[Hg] Ashutosh Ling MD Work Phone: [facility] 10-29-2022 11:35-0400 Body height 172.72 cm [employer]ell[employer]ott[employer] Siddiqui Other [employer] Other 10-29-2022 11:35-0400 Body mass index (BMI) [Ratio] 26.64 kg/m2 Estella Chen Other [employer] Other 10-29-2022 11:35-0400 Body temperature 98.2 [degF] Estella Chen Other [employer] Other 10-29-2022 11:35-0400 Body weight 79.47 kg Estella Chen Other [employer] Other 10-29-2022 11:35-0400 Diastolic blood pressure 76 mm[Hg] Estella Chen Other [employer] Other 10-29-2022 11:35-0400 Respiratory rate 18 /min Estella Chen Other [employer] Other 10-29-2022 11:35-0400 SaO2% (BldA) [Mass fraction] 98 % Estella Siddiqui Other [employer] Other 10-29-2022 11:35-0400 Systolic blood pressure 140 mm[Hg] Estella Siddiqui Other [facility] [employer] Other 09-05-2022 13:02-0400 Body height 167.64 cm Nahomi Hernandez Work Phone: [facility] [employer] 250 DO Work Phone: 09-05-2022 13:02-0400 Body mass index (BMI) [Ratio] 27.6 kg/m2 Nahomi Hernandez Work Phone: [facility] 250 DO Work Phone: 09-05-2022 13:02-0400 Body surface area Derived from formula 1.87 m2 Nahomi Hernandez Work Phone: [facility] 250 DO Work Phone: 09-05-2022 13:02-0400 Body weight 77.57 kg Nahomi Hernandez Work Phone: [facility] 250 DO Work Phone: 09-05-2022 13:02-0400 Diastolic blood pressure 54 mm[Hg] Nahomi Hernandez Work Phone: [facility] 250 DO Work Phone: 09-05-2022 13:02-0400 Heart rate 68 /min Nahomi Hernandez Work Phone: [facility] 250 DO Work Phone: 09-05-2022 13:02-0400 Systolic blood pressure 126 mm[Hg] Nahomi Hernandez Work Phone: [facility] 250 DO Work Phone: 08-27-2022 03:30-0400 Diastolic blood pressure 76 mm[Hg] [facility] 08-27-2022 03:30-0400 Heart rate 74 /min [facility] 08-27-2022 03:30-0400 Mean blood pressure 87 mm[Hg] [facility] 08-27-2022 03:30-0400 Respiratory rate 14 /min [facility] 08-27-2022 03:30-0400 SaO2% (BldA) [Mass fraction] 96 % [facility] 08-27-2022 03:30-0400 Systolic blood pressure 110 mm[Hg] [facility] 08-27-2022 03:00-0400 Diastolic blood pressure 80 mm[Hg] [facility] 08-27-2022 03:00-0400 Heart rate 80 /min [facility] 08-27-2022 03:00-0400 Mean blood pressure 97 mm[Hg] [facility] 08-27-2022 03:00-0400 Respiratory rate 15 /min [facility] 08-27-2022 02:30-0400 Diastolic blood pressure 73 mm[Hg] [facility] 08-27-2022 02:30-0400 Heart rate 96 /min [facility] 08-27-2022 02:30-0400 Mean blood pressure 92 mm[Hg] [facility] 08-27-2022 02:30-0400 Respiratory rate 20 /min [facility] 08-27-2022 02:30-0400 SaO2% (BldA) [Mass fraction] 98 % [facility] 08-27-2022 02:30-0400 Systolic blood pressure 130 mm[Hg] [facility] 08-26-2022 19:17-0400 Respiratory rate 18 /min [facility] 08-26-2022 18:11-0400 Respiratory rate 18 /min [facility] 08-26-2022 17:07-0400 Body temperature 97.7 [degF] [facility] 08-26-2022 17:07-0400 Heart rate 83 /min [facility] 08-26-2022 17:07-0400 Respiratory rate 18 /min [facility] 08-22-2022 15:50-0400 Body temperature 98.2 [degF] [facility] 08-22-2022 15:50-0400 Diastolic blood pressure 64 mm[Hg] [facility] 08-22-2022 15:50-0400 Heart rate 64 /min [facility] 08-22-2022 15:50-0400 Respiratory rate 18 /min [facility] 08-22-2022 15:50-0400 SaO2% (BldA) [Mass fraction] 99 % [facility] 08-22-2022 15:50-0400 Systolic blood pressure 124 mm[Hg] [facility] 08-22-2022 05:48-0400 Body weight 81 kg [facility] 08-21-2022 10:27-0400 70 1 Jame Musaight Work Phone: [facility] 250 DO Work Phone: Comment on above: [id number] 08-20-2022 18:32-0400 Body height 172.72 cm [facility] 08-20-2022 17:13-0400 Heart rate 42 /min [facility] 08-20-2022 16:38-0400 Diastolic blood pressure 60 mm[Hg] [facility] 08-20-2022 16:38-0400 Respiratory rate 18 /min [facility] 08-20-2022 16:38-0400 SaO2% (BldA) [Mass fraction] 98 % [facility] 08-20-2022 16:38-0400 Systolic blood pressure 123 mm[Hg] [facility] 08-20-2022 16:25-0400 Body height 172.72 cm [facility] 08-20-2022 16:25-0400 Body temperature 97.6 [degF] [facility] 08-20-2022 16:25-0400 Body weight 81.5 kg [facility] 10-27-2021 08:55-0400 Blood Pressure Location Shanna IVORY [facility] 10-27-2021 08:55-0400 Diastolic blood pressure 76 mm[Hg] Shanna IVORY [facility] 10-27-2021 08:55-0400 Heart rate 64 /min Shanna IVORY [facility] 10-27-2021 08:55-0400 Respiratory rate 16 /min Shanna IVORY [facility] 10-27-2021 08:55-0400 Systolic blood pressure 125 mm[Hg] Shannasuresh IVORY [facility] 03-07-2021 15:22-0500 Diastolic blood pressure 78 mm[Hg] Jame Barraza Work Phone: [facility] 250 DO Work Phone: 03-07-2021 15:22-0500 Systolic blood pressure 139 mm[Hg] Jame Barraza Work Phone: [facility] 250 DO Work Phone: 03-07-2021 14:47-0500 Body height 167.64 cm Jame Barraza Work Phone: [facility] 250 DO Work Phone: 03-07-2021 14:47-0500 Body mass index (BMI) [Ratio] 28.73 kg/m2 Jame Barraza Work Phone: [facility] 250 DO Work Phone: 03-07-2021 14:47-0500 Body surface area Derived from formula 1.9 m2 Jame Barraza Work Phone: [facility] 250 DO Work Phone: 03-07-2021 14:47-0500 Body weight 80.74 kg Jame Barraza Work Phone: [facility] 250 DO Work Phone: 03-07-2021 14:47-0500 Diastolic blood pressure 82 mm[Hg] Jame Barraza Work Phone: [facility] 250 DO Work Phone: 03-07-2021 14:47-0500 Heart rate 84 /min Jame Barraza Work Phone: [facility] 250 DO Work Phone: 03-07-2021 14:47-0500 Systolic blood pressure 172 mm[Hg] Jame Barraza Work Phone: [facility] 250 DO Work Phone: 11-24-2020 08:51-0400 Body height 167.64 cm Jame Barraza Work Phone: [facility] 250 DO Work Phone: 11-24-2020 08:51-0400 Body mass index (BMI) [Ratio] 28.08 kg/m2 Jame Barraza Work Phone: [facility] 250 DO Work Phone: 11-24-2020 08:51-0400 Body surface area Derived from formula 1.89 m2 Jame Barraza Work Phone: [facility] 250 DO Work Phone: 11-24-2020 08:51-0400 Body weight 78.93 kg Jame Barraza Work Phone: [facility] 250 DO Work Phone: 11-24-2020 08:51-0400 Diastolic blood pressure 82 mm[Hg] Jame Barraza Work Phone: [facility] 250 DO Work Phone: 11-24-2020 08:51-0400 Diastolic blood pressure 80 mm[Hg] Jame Barraza Work Phone: [facility] 250 DO Work Phone: 11-24-2020 08:51-0400 Heart rate 66 /min Jame Barraza Work Phone: [facility] 250 DO Work Phone: 11-24-2020 08:51-0400 Systolic blood pressure 136 mm[Hg] Jame Barraza Work Phone: [facility] 250 DO Work Phone: 11-24-2020 08:51-0400 Systolic blood pressure 138 mm[Hg] Jame Barraza Work Phone: [facility] 250 DO Work Phone: Encounters Encounter Date Encounter Type Care Provider Facility Start: 11-29-2023 ambulatory Shanna Yousif ty:LAYTON Schulte Start: 07-22-2023 End: 07-22-2023 ambulatory Alonzo Briscoe MD Facility: [facility] Start: 06-26-2023 End: 06-26-2023 [facility] Start: 06-26-2023 End: 06-26-2023 Office outpatient visit 25 minutes Ashutosh Ling MD Work Phone: [facility] Comment on above: Essential hypertensi on (Primary Dx); Arteriosclerotic cardiovascular disease; Abnormal EKG; Mixed hyperlipidemia; Post PTCA; BMI 26.0-26.9,adult; Never smoked tobacco Start: 06-18-2023 End: 06-18-2023 ambulatory LUCINDA VICKERS Not Available Start: 05-21-2023 End: 05-21-2023 ambulatory DAV Martinez SUDHIR Not Available Start: 03-18-2023 End: 03-18-2023 ambulatory [facility] Start: 03-12-2023 End: 03-12-2023 ambulatory DAV Martinez SUDHIR Not Available Start: 03-04-2023 End: 03-04-2023 ambulatory Alonzo Briscoe MD Facility:[facility] Start: 02-04-2023 End: 02-04-2023 ambulatory Alonzo Briscoe MD Facility:[facility] Start: 01-09-2023 End: 01-09-2023 [facility] Start: 01-09-2023 End: 01-09-2023 Office outpatient visit 25 minutes Ashutosh Ling MD Work Phone: [facility] Comment on above: Arteriosclerotic car diovascular disease (Primary Dx); Abnormal EKG; Mixed hyperlipidemia; Primary hypertension; Post PTCA; Essential hypertension; BMI 26.0-26.9,adult; Easy bruisability Start: 11-26-2022 End: 11-27-2022 ambulatory Shanna IVORY Facility:[facility] Start: 10-29-2022 End: 10-29-2022 ambulatory Estella Siddiqui Other [employer] Other Start: 10-29-2022 Office outpatient ne w 10 minutes Estella Siddiqui [facility] Start: 10-01-2022 Rx Renewal Nahomi Hernandez Work Phone: [facility] 250 DO Work Phone: Start: 09-14-2022 Rx Renewal Nahomi Hernandez Work Phone: [facility] 250 DO Work Phone: Start: 09-06-2022 Telephone encounter [facility] Comment on above: Patient Update Start: 09-05-2022 Office outpatient vi sit 25 minutes Nahomi Hernandez Work Phone: [facility] 250 DO Work Phone: Start: 09-05-2022 Patient encounter procedure Nahomi Elissa David Work Phone: [facility] 250 DO Work Phone: Start: 09-05-[address] Ashutosh Ling Facility:[facility] Start: 09-05-2022 End: 09-06-2022 ambulatory Alexandre KOROMA Facility:[facility] Start: 09-05-2022 End: 09-05-2022 Patient encounter procedure Alexandre KOROMA [facility] Start: 09-04-2022 Telephone encounter Deborah Ibarra RN NOC Comment on above: Follow Up Phone Call (All Clear) Start: 08-27-2022 End: 08-31-2022 Evaluation and management of inpatient DAVID ANDREWS Facility:[facility] Start: 08-26-2022 End: 08-27-2022 Emergency department patient visit [facility] Facility:[facility] Start: 08-26-2022 End: 08-27-2022 Emergency department patient visit [facility] Start: 08-26-2022 End: 08-28-2022 ambulatory Alexandre KOROMA Facility:CD:[id number] Start: 08-24-2022 Chart Update Jame Barraza Work Phone: [facility] 250 DO Work Phone: Start: 08-22-[address] Jame Barraza Facility:[id number] Start: 08-21-[address] Jame Barraza Facility:[id number] Start: 08-20-2022 End: 08-22-2022 Evaluation and management of inpatient Steven Zamora Facility:[facility] Start: 08-20-2022 End: 08-22-2022 Evaluation and management of inpatient [facility] [place] [facility] Work Phone: Start: 08-20-2022 Admission to [facility] Work Phone: Start: 08-20-2022 ambulatory NON STAFF [facility] Work Phone: Start: 08-20-[address] Ben Zamora Facility:[id number] Start: 08-20-[address] Jame Barraza Facility:[id number] Start: 06-01-[address] Nahomi Hernandez Facility: Start: 05-08-2022 ambulatory Shanna IVORY Facility :[facility] Start: 10-27-2021 End: 10-27-2021 Patient encounter procedure Shanna IVORY [facility] Start: 10-26-2021 End: 10-27-[address] SHANNA IVORY Facility:H1 Start: 05-04-2021 ambulatory DOMINGUEZ GUTIERREZ Faci lity:H1 Start: 03-07-2021 Office outpatient vi sit 25 minutes Jame Barraza Work Phone: [facility] [address] DO Work Phone: Start: 11-29-2020 Chart Update Jame Barraza Work Phone: [facility] [address] DO Work Phone: Start: 11-28-2020 Patient encounter procedure Jame Barraza Work Phone: [facility] [address] [place] Work Phone: Start: 11-24-2020 AUDIT Jame Barraza Work Phone: [facility] DO Work Phone: Procedures Date Procedure Procedure Detail Performing Clinician Start: 06-26-2023 FOLLOW UP IN CARDIOLOGY ASHUTOSH LING Start: 08-30-2022 Antibody screen DAVID PEREZ Comment on above: Order Comment: Speci men Type: BLOOD SPECIMENOrdering Facility: [facility] Address: [address] [address] Performed By: #### T SCR ####CC MAIN BLOOD BANKCLIA [id number] [address] Start: 08-27-2022 Antibody screen DAVID RANULFO PEREZ Comment on above: Order Comment: Speci men Type: BLOOD SPECIMENOrdering Facility: [facility] Address: [address] [address] Performed By: #### T SCR ####CC MAIN BLOOD BANKCLIA [id number] [address] Start: 08-20-[address] [...] DTaP/Tdap/Td Vaccines (2 - Td or Tdap) [facility] Start: 03-27-2031 Urine microalbumin profile DTAP,TDAP,TD (2 - Td or Tdap) [facility] Start: 03-13-2024 End: 03-13-2024 Patient encounter procedure 03/13/2024 11:20 AM EST Office Visit [place] [id number] [facility] [address] [place] [id number] Ashutosh Ling MD [address] [facility] [address] [place] [address] [facility] Start: 06-26-2023 End: 06-26-2023 Patient encounter procedure 06/26/2023 3:10 PM EDT Office Visit [facility] [address] [facility] [address] [place] [id number] Ashutosh Ling MD [address] [facility] [address] [place] [address] [facility] Start: 06-07-2023 FUV, Provider: Ashutosh Ling, Status: Pen, Time: 11:20 AM FUV, Provider: Ashutosh Ling, Status: Pen, [facility]: [facility] Work [facility]: Start: 01-09-2023 FUV, Provider: Ashutosh Ling, Status: Pen, Time: 3:30 PM FUV, Provider: Ashutosh Ling, Status: Pen, Time: 3:30 PM [facility] Work Phone: Start: 10-19-2022 COVID-19 Vaccine ( season) COVID-19 Vaccine ( season) [facility] Start: 10-19-2022 Influenza vaccination INFLUENZA (#1) [facility] Start: 09-05-2022 FUV, Provider: Ashutosh Ling, Status: Pen, Time: 12:50 PM FUV, Provider: Ashutosh Ling, Status: Pen, Time: 12:50 PM [facility] DO Work Phone: Start: 08-22-2022 [facility] Start: 08-20-2022 Consultation [facility] Start: 08-20-2022 Referral to cardiac rehabilitation program [facility] Start: 08-20-2022 [facility] Start: 08-20-2022 End: 08-20-2022 Hospital admission [facility] Start: 02-18-2022 ADVANCE DIRECTIVE DISCUSSION ADVANCE DIRECTIVE DISCUSSION [facility] Start: 02-18-2022 DEPRESSION ASSESSMENT DEPRESSION ASSESSMENT [facility] Start: 08-30-2021 FUV, Provider: Ashutosh Ling, Status: Pen, Time: 2:30 PM FUV, Provider: Ashutosh Ling, Status: Pen, Time: 2:30 PM [facility] DO Work Phone: Start: 04-03-2021 COVID-19 VACCINE (4 - Pfizer series) COVID-19 VACCINE (4 - Pfizer series) [facility] Start: 03-07-2021 FUV, Provider: Ashutosh Ling, Status: Pen, Time: 2:50 PM FUV, Provider: Ashutosh Ling, Status: Pen, Time: 2:50 PM [facility] [address] DO Work Phone: Start: 11-28-2020 EVENT ELIEZER, Provider: FADUMO BENSON BRAND ENGINEER 1,[id number], Status: Pen, Time: 10:30 AM EVENT ELIEZER, Provider: FADUMO BENSON BRAND ENGINEER 1,[id number], Status: Pen, Time: 10:30 AM [facility] DO Work Phone: Start: 2005 RSV patients and/or patients aged 60+ years (1 - 1-dose 60+ series) RSV patients and/or patients aged 60+ years (1 - 1-dose 60+ series) [facility] Start: 06-18-1995 SHINGRIX VACCINE (1 of 2) SHINGRIX VACCINE (1 of 2) [facility] Start: 06-18-1995 Zoster Vaccines (1 of 2) Zoster Vaccines (1 of 2) [facility] Start: 06-18-1963 ANNUAL PCP TEAM CHRONIC DISEASE VISIT ANNUAL PCP TEAM CHRONIC DISEASE VISIT [facility] Start: 06-18-1963 BP CONTROLLED (<130/80) BP CONTROLLED (<130/80) [facility] Start: 06-18-1963 Diabetes mellitus screening Diabetes Screening [facility] Start: 06-18-1963 Hepatitis B surface antibody level LDL CHOLESTEROL [facility] Start: 06-18-1963 HEPATITIS C SCREENING HEPATITIS C SCREENING [facility] Start: 06-18-1963 Hepatitis C screening Hepatitis C Screening [facility] Start: 06-18-1955 3 comp foot exam completed DIABETIC FOOT EXAM [facility] Start: 06-18-1955 Hepatitis B screening URINE ALBUMIN:CREATININE RATIO [facility] Start: 06-18-1955 Hepatitis C antibody, confirmatory test DILATED RETINAL EXAM [facility] Start: 1950 Hemoglobin A1c/Hemoglobin.total in Blood HBA1C [facility] Start: 1945 Lipid panel Lipid Panel [facility] Start: 1945 Medicare Annual Wellness Visit Medicare Annual Wellness Visit (AWV) [facility] Patient Education Coronary Angio plasty (DC) Coronary Stenting (DC) Angina (DC) Chest Pain (DC) Drug Eluting Stents [facility] Work Phone: Patient referral [facility] Work Phone: Immunizations Immunization Date Immunization Notes Care Provider Fa cility 02-18-2022 influenza nasal, unspecified formulation Deborah Ibarra RN [facility] 12-26-2021 Fluad Quadrivalent 0 .5 ML Intramuscular Prefilled Syringe Jame Barraza Work Phone: [facility] 12-26-2021 influenza, high dose seasonal, preservative-free Ashutosh Ling MD Work Phone: [facility] Work Phone: 03-27-2021 tetanus toxoid, redu shruti diphtheria toxoid, and acellular pertussis vaccine, adsorbed Deborah Ibarra RN [facility] 02-06-2021 Pfizer-BioNTech COVID-19 Vacc 30 MCG/0.3ML Intramuscular Suspension Jame Barraza Work Phone: [facility] 11-18-2020 influenza nasal, unspecified formulation Deborah Ibarra RN [facility] 11-10-2020 Fluad Quadrivalent 0 .5 ML Intramuscular Prefilled Syringe Jame Barraza Work Phone: [facility] 04-12-2020 Pfizer-BioNTech COVID-19 Vacc 30 MCG/0.3ML Intramuscular Suspension Jame Barraza Work Phone: [facility] 03-28-2020 COVID-19 original vaccine, age 12+ yr, monovalent (PFIZER-BIONTECH - PURPLE TOP) Deborah Ibarra RN [facility] 03-22-2020 Pfizer-BioNTech COVID-19 Vacc 30 MCG/0.3ML Intramuscular Suspension Jame Barraza Work Phone: [facility] 03-21-2020 SARS-CoV-2 (COVID-19 ) Ad26 vaccine, recombinant Shanna IVORY [facility] Comment on above: Result Comment: unab le to give exact dates 12-16-2019 influenza (HD-IIV4) vaccine, age 65+ yr, high dose, quadrivalent, PF (FLUZONE HIGH-DOSE) Deborah Ibarra RN [facility] 12-16-2018 AS03 adjuvant Deborah Ibarra RN [facility] 12-24-2017 AS03 adjuvant Deborah Ibarra RN [facility] 12-21-2016 influenza, high dose seasonal, preservative-free Deborah Ibarra RN [facility] 02-19-2016 pneumococcal polysaccharide vaccine, 23 valent Jame Barraza Work Phone: [facility] Comment on above: Series: 11-23-2015 influenza, high dose seasonal, preservative-free Jame Barraza Work Phone: [facility] 10-20-2015 influenza nasal, unspecified formulation Deborah Iabrra RN [facility] 11-06-2014 influenza nasal, unspecified formulation Deborah Ibarra RN [facility] 11-06-2014 pneumococcal conjuga te vaccine, 13 valent Deborah Ibarra RN [facility] Payers Date Payer Category Payer Medicare [id number] 2022 Private Health Insurance [facility] [id number] 2022 Self-pay 2022 Medicare [id number] 2022 Medicare [id number] 1959 Medicare [id number] 1959 Private Health Insurance [facility] [id number] 1945 Unknown [id number] 2.840.1.098770.3.579.2.593 1945 Unknown [id number] 2.840.1.313252.3.579.2.593 1945 Unknown [id number] 2.840.1.620441.3.579.2.356 1945 Unknown [id number] 2.840.1.304267.3.579.2.356 1945 Unknown [id number] 2.840.1.500137.3.579.2.356 1945 Unknown [id number] 2.16840.1.850161.3.579.2.356 1945 Unknown [id number] 2.16840.1.061859.3.579.2.356 1945 Unknown [id number] 2.16840.1.943848.3.579.2.356 1945 Unknown [id number] 2.16840.1.137041.3.579.2.727 1945 Unknown [id number] 2.16.840.1.182239.3.579.2.727 1945 Unknown [id number] 2.16.840.1.595634.3.579.2.727 1945 Unknown [id number] 2.16.840.1.492567.3.579.2.727 1945 Unknown [id number] 2.16.840.1.340363.3.579.2.727 1945 Unknown [id number] 2.16.840.1.032016.3.579.2.1259 1945 Unknown [id number] 2.16.840.1.173859.3.579.2.1259 1945 Unknown [id number] 2.16.840.1.524088.3.579.2.1259 1945 Unknown [id number] 2.16.840.1.041588.3.579.2.1244 1945 Unknown [id number] 2.16.840.1.442539.3.579.2.1244 1945 Unknown [id number] 2.16.840.1.829862.3.579.2.196 1945 Unknown [id number] 2.16.840.1.381421.3.579.2.196 1945 Unknown [id number] 2.16.840.1.063434.3.579.2.196 1945 Unknown [id number] 2.16.840.1.964163.3.579.2.196 Private Health Insurance [facility] [id number] Unknown Unknown [id number] 2.16.840.1.180657.3.579.2.531 Social History Date Type Detail Facility Start: 01-08-2023 End: 01-09-2023 No alcohol use No alcohol use [facility] [address] DO Work Phone: Comment on above: 1 cup of coffee edelmira y; former cigar smoker; Start: 10-21-2020 End: 06-26-2023 Tobacco smoking status Never smoked tobacco (finding) [facility] Start: 01-08-2023 End: 01-09-2023 Sex Assigned At Male [facility] Start: 1945 Sex Assigned At Male [facility] Tobacco smoking status [facility] Tobacco smoking consumption unknown [facility] Start: 1945 Sex Assigned At Not on file [facility] Start: 01-08-2023 Tobacco smoking status NHIS Ex-smoker [facility] Work Phone: History of tobacco use Current smoker [facility] Work Phone: History of tobacco use Cigar Smoker [facility] Work Phone: Start: 01-08-2023 End: 06-26-2023 Tobacco use and exposure Smokeless tobacco non-user [facility] Work Phone: Start: 01-09-2023 End: 06-26-2023 Alcohol intake Ex-drinker (finding) [facility] Work Phone: Start: 12-30-2022 End: 06-26-2023 Exposure to SARS-CoV-2 (event) Not sure [facility] Medical Equipment Procedure Code Equipment Code Equipment Origin al Text Equipment Identifier Dates CL STENT BISHOP FRONTIER 3.0 X 26 FDA Start: 08-20-2022 Femoral artery closure plug/patch, synthetic polymer ()[id number] FDA Start: 08-20-2022 Goals Date Patient Goal Desired Activity /State Functional Status Date Assessment Result Facility 08-26-2022 Functional Status N/A [facility] 08-22-2022 Functional status Patient at Baseline [facility] Work Phone: 10-27-2021 Functional Status N/A [facility] Mental Status Date Assessment Result Facility 08-22-2022 Cognitive function Cognitive Sta tus Patient at Baseline [facility] Work Phone: Clinical Notes 10-27-2021 to 06-26-2023 [...] [place] lab [place] Review of Systems Cardiovascular: Positive for [...] discussion and plan. documented in this encounter [facility] Work Phone: 06-26-2023 Instructions Mandy Munoz [...] two times daily documented in this encounter [facility] Work Phone: 01-09-2023 History of Present [...] his lab work is done through the [facility] system Review of Systems Constitutional: Easy bruisability [...] 8. Easy bruisability documented in this encounter [facility] Work Phone: 01-09-2023 Instructions Travis Peter [...] of your visit. documented in this encounter [facility] Work Phone: 10-29-2022 Evaluation note Encounter Date Diagnosis Assessment Notes Oct, Impacted cerumen of both ears (ICD-10 - H61.23) Cerumen impaction home care material was printed Drink plenty fluids, get plenty of rest. Continue home medications as prescribed. Follow-up with your family physician for any further concerns [facility] Other 07-20-2023 Miscellaneous Notes* Telephone Encounter - [...] called in. The pharmacy is not at [facility]. I will need to call them when its done. Dr Koroma is asking why he is on flomax? Please advise. [facility] Miscellaneous Notes* Telephone Encounter - Deborah Ibarra RN - 09/04/2022 12:51 PM EDT PATIENT INFORMATION Record ID: [id number] Patient Name: [facility]: [facility]: [facility] [place] Attending: David Andrews Center: Urology INSTRUCTIONS SN to remind patient of appointment date, time, location All Clear All Clear SURVEY INFORMATION Medical/Nurse Social Research Assistant: Deborah Ibarra 1. Your discharge instructions [...] symptoms? (Standard Question) No [facility]23 NoteHNO ID: [id number] Author: Kathrin Dickerson RN Service: Care Management [...] Primary Care Physician Name/Phone: Jame Barraza MD [phone] Patient is medically stable for discharge, on RA, no dc needs. IMM provided on 08/30 by previous CM. Patients to discharge home. SIGNATURE: Kathrin Dickerson RN PATIENT NAME: Olaf Briones DATE: August 31, 2022 TIME: 9:40 AM CONTACT #: [phone] Note HNO ID: [id number] Author: Danyell Morris MD Service: Critical Care Author Type: Anesthesiologist Type: Progress Notes Filed: 08/31/2022 2:15 PM Note Text: SERVICE DATE: 08/31/2022 SERVICE TIME: 8:54 AM SURGICAL INTENSIVE CARE UNIT PROGRESS NOTE BRIEF HPI: Olaf Briones is a 77 year old male with PMHx of recent STEMI on 08/20/22 (s/p JUHI),HTN, HLD, DM, nephrolithiasis, transferred from [facility] for gross hematuria. He is now [...] Primary and SICU discussed patient transfer to [facility]. 08/30:no acute events. Hemodynamically stable. 08/31: No acute events. HDS. Patient is doing well and ready for transfer/discharge per Urology. Subjective INTERVAL EVENTS: Improved Objective MEDICATIONS: Current medications and allergies reviewed. Recommended/planned medication changes discussed in detail in the A/P section below. Please refer to [facility] for list of inpatient medications. [...] aspirin and ticagrelor Coronary artery disease involving belkofski coronary artery of belkofski heart Assessment: STEMI on 08/19/2022 s/p JUHI [...] Antiplatelet Medications (From admiss (more content not included)...[facility]07-14-2023 NoteHNO ID: [id number] Author: Prema Feliz MD Service: Urology Author Type: Resident Type: Progress Notes Filed: 08/31/2022 6:45 AM Note Text: [facility] UROLOGY PROGRESS NOTE Name: Olaf Briones Bed: H050 013/H050-13 Date: 08/31/2022 After Hours [facility] Urology Service Pager: [phone] ASSESSMENT AND PLAN Olaf Briones is a 77 year old male with PMHx of HTN, HLD, DM, recent STEMI (s/p JUHI, on Brillinta and ASA), nephrolithiasis s/p ESWL , BPH s/p TURP 2001, transferred from [facility] for gross hematuria. Currently with 18Fr 3-way catheter on CBI. Now 3 Days Post-Op s/p cystoscopy, clot evacuation, cystolitholapaxy, TURP. Admitted to SICU postoperatively due to pressor requirements and risk of hyponatremia due to length of TURP. 22Fr [address] hernandez placed introp, on traction and CBI. Transferred to [facility] 08/30. Interval: - AFVSS - Doing well, [...] order flomax for home. Active Problems Prior [place] POA: Yes - placed on ASA 81, ticagrelor 90 mg BID Nephrolithiasis POA: Yes - Monitor HLD POA: Yes - Home atorva 80 mg DM POA: Yes - SSI HTN POA: Yes - amlodipine 5mg daily, carvedilol 6.25 BID, lisinopril 2.5 mg daily Prema Feliz MD PGY-2 Resident Physician Urology Pager: [phone] For weekend or after hours issues [place] [phone] SUBJECTIVE See above Objective OBJECTIVE Vital Signs BP 114/56 Pulse 61 Temp 36.9 ?C (98.4 ?F) (Oral) Resp 15 Ht 173 cm (5' 8.11 ) Wt 77.9 kg (171 lb 11.8 oz) SpO2 95% BMI 26.03 kg/m? Input and Output Intake/Output Summary (Last 24 hours) at 08/31/2022 0645 Last data filed at 08/31/2022 0600 Gross per 24 hour Intake 6174.7 ml Output 07691 ml Net -5325.3 ml Physical Exam GEN: [...] Feliz MD PGY-2 Resident Physician Urology Pager: [phone] For weekend or after hours issues please page the [place]-call urology [place]ager [place] [phone] [facility]07-13-2023 NoteHNO ID: [id number] Author: Danyell Morris MD Service: Critical Care Author Type: Anesthesiologist Type: Progress Notes Filed: 08/30/2022 3:36 PM Note Text: SERVICE DATE: 08/30/2022 SERVICE TIME: 3:25 PM SURGICAL INTENSIVE CARE UNIT PROGRESS NOTE BRIEF HPI: Olaf Briones is a 77 year old male with PMHx of recent STEMI on 08/20/22 (s/p JUHI),HTN, HLD, DM, nephrolithiasis, transferred from [facility] for gross hematuria. He is now [...] Primary and SICU discussed patient transfer to [facility]. 08/30:no acute events. Hemodynamically stable. Subjective INTERVAL EVENTS: hemodynamically stable. Objective MEDICATIONS: Current medications and allergies reviewed. Recommended/planned medication changes discussed in detail in the A/P section below. Please refer to [facility] for list of inpatient medications. VITAL SIGNS: [...] Is Patient Clinically Ready to Transfer to [facility] or SDU?: Yes, transfer to SDU or [facility] today Discharge Planning: To be determined Prevention: [...] aspirin and ticagrelor Coronary artery disease involving belkofski coronary artery of belkofski heart Assessment: STEMI on 08/19/2022 s/p JUHI [...] Prophylaxis/Anticoagulants Anticoagulant AND Antiplatel (more content not included)...[facility]07-13-2023 NoteHNO ID: [id number] Author: Prema Feliz MD Service: Urology Author Type: Resident Type: Progress Notes Filed: 08/30/2022 7:12 AM Note Text: [facility] UROLOGY PROGRESS NOTE Name: Olaf Briones Bed: H050 013/H050-13 Date: 08/30/2022 After Hours [facility] Urology Service Pager: [phone] ASSESSMENT AND PLAN Olaf Briones is a 77 year old male with PMHx of HTN, HLD, DM, recent STEMI (s/p JUHI, on Brillinta and ASA), nephrolithiasis s/p ESWL , BPH s/p TURP 2001, transferred from [facility] for gross hematuria. Currently with 18Fr 3-way catheter on CBI. Now 2 Days Post-Op s/p cystoscopy, clot evacuation, cystolitholapaxy, TURP. Admitted to SICU postoperatively due to pressor requirements and risk of hyponatremia due to length of TURP. 22Fr [address] hernandez placed introp, on traction and CBI. Awaiting bed on [facility]. Interval: - Afebrile, SBPs 110s - Doing [...] discharge today vs tomorrow Active Problems Prior [place] POA: Yes - placed on ASA 81, ticagrelor 90 mg BID Nephrolithiasis POA: Yes - Monitor HLD POA: Yes - Home atorva 80 mg DM POA: Yes - SSI HTN POA: Yes - amlodipine 5mg daily, carvedilol 6.25 BID, lisinopril 2.5 mg daily Prema Feliz MD PGY-2 Resident Physician Urology Pager: [phone] For weekend or after hours issues [place] [phone] SUBJECTIVE See above Objective OBJECTIVE Vital Signs BP 111/56 Pulse 61 Temp 36.7 ?C (98.1 ?F) (Axillary) Resp 12 Ht 173 cm (5' 8.11 ) Wt 84 kg (185 lb 3 oz) SpO2 96% BMI 28.07 kg/m? Input and Output Intake/Output Summary (Last 24 hours) at 08/30/2022 0558 Last data filed at 08/30/2022 0500 Gross per 24 hour Intake 6400 ml Output 60679 ml Net -4150 ml Physical Exam GEN: [...] Feliz MD PGY-2 Resident Physician Urology Pager: [phone] For weekend or after hours issues please page the [place]-call urology [place] [phone] Grove City [facility]07-12-2023 NoteHNO ID: [id number] Author: Ary Frazier RN Service: Care Management [...] oxygen, or cpaps at home. Had recent [place] in past. Cardiology on consult. No current [...] 29, 2022 TIME: 12:11 PM PAGER/CONTACT #: [phone] Grove City [facility]07-12-2023 NoteHNO ID: [id number] Author: Danyell Morris MD Service: Critical Care Author Type: Anesthesiologist Type: Progress Notes Filed: 08/29/2022 3:08 PM Note Text: SERVICE DATE: 08/29/2022 SERVICE TIME: 11:28 AM SURGICAL INTENSIVE CARE UNIT PROGRESS NOTE BRIEF HPI: Olaf Briones is a 77 year old male with PMHx of recent STEMI on 08/20/22 (s/p JUHI),HTN, HLD, DM, nephrolithiasis, transferred from [facility] for gross hematuria. He is now [...] Primary and SICU discussed patient transfer to [facility]. Subjective INTERVAL EVENTS: Improved Objective MEDICATIONS: Current medications and allergies reviewed. Recommended/planned medication changes discussed in detail in the A/P section below. Please refer to enGene for list of inpatient medications. VITAL SIGNS: [...] Is Patient Clinically Ready to Transfer to [facility] or SDU?: Yes, transfer to SDU or [facility] today Discharge Planning: To be determined Prevention: [...] aspirin and ticagrelor Coronary artery disease involving belkofski coronary artery of belkofski heart Assessment: STEMI on 08/19/2022 s/p JUIH Plan - Continue dual antiplatelet therapy with [...] Urology AND SICU ok for transfer to [facility] Medication and Non-Pharmacologic VTE Prophylaxis/Anticoagulants Anticoagulant AND Antiplatelet Medica (more content not included)...[facility]07-12-2023 NoteHNO ID: [id number] Author: David Andrews MD Service: Urology Author Type: Physician Type: Progress Notes Filed: 08/29/2022 7:09 PM Note Text: [facility] UROLOGY PROGRESS NOTE Name: Olaf Briones Bed: H050 013/H050-13 Date: 08/29/2022 After Hours [facility] Urology Service Pager: [phone] ASSESSMENT AND PLAN Olaf Briones is a 77 year old male with PMHx of HTN, HLD, DM, recent STEMI (s/p JUHI, on Brillinta and ASA), nephrolithiasis s/p ESWL remote, BPH s/p TURP 2001, transferred from [facility] for gross hematuria. Currently with 18Fr [...] EF 55% -Encourage IS -Continue telemetry on [facility] #GI - -Diet: Regular diet -Colace, Zofran [...] - routine #Disposition - pending course, to [facility] today if SICU agrees it is appropriate. Plan for discharge tomorrow. Active Problems Prior [place] POA: Yes - placed on ASA 81, ticagrelor 90 mg BID Nephrolithiasis POA: Yes - Monitor HLD POA: Yes - Home atorva 80 mg DM POA: Yes - SSI HTN POA: Yes - amlodipine 5mg daily, carvedilol 6.25 BID, lisinopril 2.5 mg daily Prema Feliz MD PGY-2 Resident Physician Urology Pager: [phone] For weekend or after hours issues [place] [phone] CHIEF RESIDENT ADDENDUM POD#1 s/p cysto, TURP, [...] 08/29/2022 0700 Gross per 24 hour Intake 24850.5 ml Output 03038 ml Net 5853.5 ml Gen: No apparent [...] recs Gt Mcgowan MD Resident PGY-6 Urology [facility] Urologic and Kidney [facility] Please page Dr. Feliz with [...] 08/29/2022 0700 Gross per 24 hour Intake 67699.5 ml Output 12093 ml Net 5853.5 ml Physical Exam GEN: [...] Feliz MD PGY-2 Resident Physician Urology Pager: [phone] For weekend or after hours issues [place] [phone] [facility] STAFF PHYSICIAN NOTE OF PERSONAL INVOLVEMENT IN CARE I have reviewed the progress note obtained and documented by the resident (more content not included)...[facility]07-11-2023 NoteHNO ID: [id number] Author: Molly Rosado APRN.DATA COMMUNICATIONS SOFTWARE CONSULTANT Service: ? Author Type: Nurse [facility] Type: Anesthesia Procedure Notes Filed: 08/28/2022 7:27 PM Note Text: ANESTHESIOLOGY PROCEDURE NOTE PIV General Information Procedure Start Time/Medication Administration: 08/28/2022 7:26 PM Staffing DATA COMMUNICATIONS SOFTWARE CONSULTANT: Molly Rosado APRN.CRNA Preparation Sterility Preparation: hand [...] August 28, 2022 TIME: 7:26 PM CSN: [id number] [facility]-2023 NoteHNO ID: [id number] Author: Molly Rosado APRN.CRNA Service: ? Author Type: Nurse [facility] Type: Anesthesia Procedure Notes Filed: 08/28/2022 6:31 PM Note Text: ANESTHESIOLOGY PROCEDURE NOTE Airway General Information Procedure Start Time/Medication Administration: 08/28/2022 6:10 PM Patient location during procedure: OR Timeout Performed Pre-procedure: timeout performed Consent Obtained: Yes Patient identity confirmed: arm band and patient Staffing DATA COMMUNICATIONS SOFTWARE CONSULTANT: Molly Rosado APRN.CRNA Indications and Patient Condition [...] August 28, 2022 TIME: 6:31 PM CSN: [id number] [facility]07-[facility]-2023 NoteHNO ID: [id number] Author: Prema Feliz MD Service: Urology Author Type: Resident Type: Progress Notes Filed: 08/28/2022 9:47 PM Note Text: [facility] UROLOGY PROGRESS NOTE Name: Olaf Briones Bed: H050 013/H050-13 Date: 08/28/2022 After Hours [facility] Service Pager: [phone] ASSESSMENT AND PLAN Olaf Briones is a 77 year old male with PMHx of HTN, HLD, DM, recent STEMI (s/p JUHI, on Brillinta and ASA), nephrolithiasis s/p ESWL , BPH s/p TURP 2001, transferred from [facility] for gross hematuria. Currently with 18Fr [...] pending course, in SICU Active Problems Prior [place] POA: Yes - placed on ASA 81, ticagrelor 90 mg BID Nephrolithiasis POA: Yes - Monitor HLD POA: Yes - Home atorva 80 mg DM POA: Yes - SSI HTN POA: Yes - amlodipine 5mg daily, carvedilol 6.25 BID, lisinopril 2.5 mg daily Prema Feliz MD PGY-2 Resident Physician Urology Pager: [phone] For weekend or after hours issues [place] [phone] SUBJECTIVE See above Objective OBJECTIVE Vital Signs BP 112/52 Pulse 69 Temp 36.9 ?C (98.4 ?F) (Oral) Resp 18 Ht 173 cm (5' 8.11 ) Wt 75.5 kg (166 lb 7.2 oz) SpO2 97% BMI 25.23 kg/m? Input and Output Intake/Output Summary (Last 24 hours) at 08/28/20221955 Last data filed at 08/28/2022 1830 Gross per 24 hour Intake 17887 ml Output 68195 ml Net -1875 ml Physical Exam GEN: [...] Feliz MD PGY-2 Resident Physician Urology Pager: [phone] For weekend or after hours issues please page the [place] [phone]23 NoteHNO ID: [id number] Author: Prema Feliz MD Service: Urology Author Type: Resident Type: Progress Notes Filed: 08/28/2022 8:02 AM Note Text: [facility] UROLOGY PROGRESS NOTE Name: Olaf Briones Bed: H050 013/H050-13 Date: 08/28/2022 After Hours [facility] Urology Service Pager: [phone] ASSESSMENT AND PLAN Olaf Briones is a 77 year old male with PMHx of HTN, HLD, DM, recent STEMI (s/p JUHI, on Brillinta and ASA), nephrolithiasis s/p ESWL remote, BPH s/p TURP 2001, transferred from [facility] for gross hematuria. Currently with 18Fr [...] - -Scr: stable -UOP: Continue to monitor -Henrandez: Continue on CBI #Activity - OOB to chair and Ambulate with assistance. Stressed importance of getting out of bed #DVT prophylaxis - SCDs, on ASA, Ticagrelor #ID/Antibiotics - On IV Zosyn - F/u Ucx, BCx #Secondary Dx/Complications- See active problems below #Discharge teaching - routine #Disposition - pending course, planning for OR for cysto, fulguration today Active Problems Prior [place] POA: Yes - placed on ASA 81, ticagrelor 90 mg BID Nephrolithiasis POA: Yes - Monitor HLD POA: Yes - Home atorva 80 mg DM POA: Yes - SSI HTN POA: Yes - amlodipine 5mg daily, carvedilol 6.25 BID, lisinopril 2.5 mg daily Essential elements of above plan discussed with staff, Dr. Sharon Feliz MD PGY-2 Resident Physician Urology Pager: [phone] For weekend or after hours issues [place] [phone] SUBJECTIVE See above Objective OBJECTIVE Vital Signs BP 116/57 Pulse 69 Temp 36.5 ?C (97.7 ?F) (Oral) Resp 18 Ht 173 cm (5' 8.11 ) Wt 75.5 kg (166 lb 7.2 oz) SpO2 97% BMI 25.23 kg/m? Input and Output Intake/Output Summary (Last 24 hours) at 08/28/2022 07 Last data filed at 08/28/2022 0716 Gross per 24 hour Intake 21100.5 ml Output 83114 ml Net -00871.5 ml Physical Exam GEN: Alert, NAD EYES: Anicteric CV: Warm and well perfused LUNGS: Unlabored breathing on RA ABD: Soft, appropriately tender : Hernandez catheter present Labs Recent Labs 08/27/22 0710 WBC 16.24* HB 13.4 HCT 38.5* PLT 214 NA 140 K 4.3 CHLOR 105 CO2 22 BUN 17 CREAT 0.79 GLUC 197* Imaging Reviewed Prema Feliz MD PGY-2 Resident Physician Urology Pager: [phone] For weekend or after hours issues please page the [place]-call urology [place]ager at [phone] Grove City [facility]-10-2023 NoteHNO ID: [id number] Author: Naomy Adkins MD Service: Urology Author [...] antispasmodics (ditropan, belladonna and opium suppositories, levsin, etc).[facility]07-09-2023 Evaluation + Plan noteExtracted from: Title:Urology [...] BPH with urinary obstruction / SNOMED CT 1603990568 / Confirmed Kidney stone / SNOMED CT 038345958 / Confirmed Weak urinary stream / SNOMED CT 647712353 / Confirmed Microscopic hematuria / SNOMED CT 358285901 / Confirmed Diabetes / SNOMED CT 136172621 / Confirmed Hypertension / SNOMED CT 4094729181 / Confirmed Prostatitis / SNOMED CT 44041329 / Confirmed BPH without urinary obstruction / SNOMED CT 4802053454 / Confirmed Gross hematuria / SNOMED CT 429361164 / Confirmed Asymptomatic microscopic hematuria / SNOMED CT 6560282879 / Confirmed, Active Problems (10) Asymptomatic microscopic hematuria BPH with urinary obstruction BPH without urinary obstruction Diabetes Gross hematuria Hypertension Kidney stone Microscopic hematuria Prostatitis Weak urinary stream Histories Past Medical History: No active or resolved past medical history items have been selected or recorded. Family History: Hypertension Father Procedure history: Cystoscopy (46779312) on 08/18/2013 at 68 Years. Comments: 10/02/2018 16:11 EDT - Katie Rogers MA 11/08/200904/2006 TURP - Transurethral resection of prostate (947575700) in 2006 at 61 Years. Urodynamics (397285978) in 2006 at 61 Years. Transrectal biopsy of prostate using ultrasound (US) guidance (2221867754) in 2005 at 60 Years. ESWL - Extracorporeal shockwave lithotripsy for renal calculus (562116044) in 2000 at 55 Years. Comments: 10/02/2018 [...] Normal range of motion. Integumentary: Warm, Dry, [place]. Neurologic: Alert, Oriented, Normal sensory. Psychiatric: Cooperative, [...] % HI Lymph Auto 6.1 % LOW [place] Auto 4.9 % Eos Auto 0.9 % Basophil Auto 0.5 % Neutro Absolute 13.5 E9/L HI Lymph Absolute 0.9 E9/L LOW [place] Absolute 0.8 E9/L Eos Absolute 0.1 E9/L [...] and Plan Diagnosis Abnormal CT scan, bladder (VZP47-GC R93.41, Working, Medical). Anticoagulated by anticoagulation treatment (QGB12-BR Z79.01, Working, Medical). BPH with obstruction/lower urinary tract symptoms (GVW76-PM N40.1, Working, Medical). Gross hematuria (WKJ20-CY R31.0, Discharge, Medical). S/P TURP (status post transurethral resection of prostate) (AMZ36-MM Z90.79, Working, Medical). Urinary retention (LWG08-YB R33.9, Discharge, Medical). Course: Worsening, Viewed CT [...] do not currently have available here at [facility] continuously. I discussed this extensively with [...] Date:11/02/2022 08:30:00 AM Scheduled Provider:Shanna IVORY MD Location:[facility] Appointment Type:URO Office Visit [facility]07-05-2023 Hospital Discharge instructions Additional Instructions [...] doctor or pharmacist, without first calling the mac artist who implanted the stent. If you require [...] weight lifting, stair steppers, etc. until the mac artist approves these activities. Check with the mac artist on your first follow-up visit. CALL YOUR PHYSICIAN at [phone]: -If bleeding should occur from the catheter insertion site- apply pressure to the site then immediately call us. -Report any fever, redness, drainage, increased swelling, or firmness at the catheter insertion site. Some bruising or slight swelling may be present at the time of discharge. -Should arm or leg become cold, numb, white, or blue, contact the mac artist immediately. -IF you should experience episodes of [...] is recommended. Please call Central Scheduling at [phone] to schedule your appointment.] The attending mac artist or [facility] nurse clinician should provide you with specific instructions regarding activity, diet, medications, and further follow up for you. Follow the medication instructions provided on your discharge. If the dosages and instructions on this sheet differ from the dosage and instructions on the bottle, follow the instructions on the bottle. [facility] is not responsible for incorrect prescription information provided by the patient during their visit. Do not stop your medications without consulting your health care provider. Please take the list with you to your next doctor's appointment.[facility] Work Phone: 1(364) 744-670107-04-2023 Consult note Author Juanito Barney [facility] August 21, 2022 11:41am Note Date/Time August 21, 2022 11:41 am [facility] [address] [place], [place] [id number] Pulmonology Consult Note Signed Patient: Olaf Briones MR#: [id number] : 1945 Acct:[id number] Age/Sex: 77 / M Adm Date: 3 Loc: 4C Room: 6T3896-8 Type: REG SDC Attending Dr: Steven Zamora [...] ST elevation in the inferior lateral leads. Battery Filler was activated, patient received PCI to RCA. [...] 08/21/22 10:00 08/21/22 10:00 08/21/22 10:00 Narrative: ALIGNING CHECKER: Alert and oriented x3. No focal deficits. [...] found to have inferior lateral ST elevation [place] along with complete heart block. Battery Filler was activated, patient received PCI to RCA. Patient is currently doing much better with no signs or symptoms of heart block,he is on room air. Optimizing cardiac meds as per cardiology. Glycemic control DVT prophylaxis Discussed with nursing staff Documented By: Juanito Barney MD 08/21/22 113 6 Signed By: <Electronically signed by Juanito Barney MD> 08/21/22 1141 [facility] Work Phone: 1(400) 919-608607-04-2023 Progress note Author Elpidio Andres [facility] August 21, 2022 8:11am Note Date/Time August 21, 2022 8:11a m [facility] [address] [place] [address] Cardiology Progress Note Signed Patient: Olaf Briones MR#: [id number] : 1945 Acct:[id number] Age/Sex: 77 / M Adm Date: 3 Loc: Room: [address] [place] [address] Type: REG SDC Attending Dr: Steven Zamora [...] % (Auto) 64.1 Lymph % (Auto) 26.2 [place] % (Auto) 7.9 Eos % (Auto) 1.3 Baso % (Auto) 0.5 Nucleat RBC Rel Count 0.1 Neut # (Auto) 6.9 Lymph # (Auto) 2.8 [place] # (Auto) 0.9 H Eos # (Auto) [...] MPV Neut % (Auto) Lymph % (Auto) [place] % (Auto) Eos % (Auto) Baso % (Auto) Nucleat RBC Rel Count Neut # (Auto) Lymph # (Auto) [place] # (Auto) Eos # (Auto) Baso # [...] MPV Neut % (Auto) Lymph % (Auto) [place] % (Auto) Eos % (Auto) Baso % (Auto) Nucleat RBC Rel Count Neut # (Auto) Lymph # (Auto) [place] # (Auto) Eos # (Auto) Baso # (Auto) Monocyte Dist Width PT INR APTT PHA Creatinine Clear Sodium Potassium Chloride Carbon Dioxide Anion Gap BUN Creatinine Est GFR (CKD-EPI) Glucose Calcium Total Creatine Kinase Troponin I High Sens 9010.4 H* 88245.3 H* 59793.9 H* B-Natriuretic Peptide Triglycerides Cholesterol LDL Cholesterol, Calc VLDL Cholesterol HDL Cholesterol Cholesterol/HDL Ratio 0708/21/22 08/21/22 05:30 05:30 05:30 Corrected WBC 13.6 H Uncorrected WBC Count 13.6 H RBC 4.66 Hgb 14.6 Hct 42.7 MCV 91.6 MCH 31.4 MCHC 34.3 RDW 13.5 Plt Count 171 MPV 9.5 Neut % (Auto) 85.4 Lymph % (Auto) 8.2 [place] % (Auto) 6.1 Eos % (Auto) 0.1 Baso % (Auto) 0.2 Nucleat RBC Rel Count 0.0 Neut # (Auto) 11.7 H Lymph # (Auto) 1.1 [place] # (Auto) 0.8 Eos # (Auto) 0.0 Baso # (Auto) 0.0 Monocyte Dist Width PT INR APTT PHA Creatinine Clear 74.81 Sodium 138 Potassium 3.8 Chloride 103 Carbon Dioxide 27.1 Anion Gap 11.7 BUN 12 Creatinine 0.71 Est GFR (CKD-EPI) > 60.0 Glucose 162 H Calcium 9.4 Total Creatine Kinase Troponin I High Sens 61403.9 H* B-Natriuretic Peptide Triglycerides 124 Cholesterol 132 [...] evolution today [facility] (2) Heart block: Assessment/Problem Details: Resolved [...] <Electronically signed by Elpidio Andres MD> 08/21/2211 [facility] Work Phone: 1(651) 388-605607-03-2023 History and physical note Author Steven Zamora [facility] August 20, 2022 6:29pm Note Date/Time August 20, 2022 6:24p m [facility] [address] [place] [address] Cardiology H&P Signed with Addenda Patient: Olaf Briones MR#: [id number] : 1945 Acct:[id number] Age/Sex: 77 / M Adm Date: 3 Loc: Room: [address] [place] [address] Type: REG SDC Attending Dr: Steven Zamora DO Copies to: NON STAFF Steven Zamora DO~ ADDENDUM1 Impression: Inferolateral STEMI with change in complete heart block Plan: Proceed with emergent cath and PCI. A total of 60 minutes nonprocedural critical care time were devoted to the ER staff, review of ECG, Battery Filler staff, nursing staff, both patient and family [...] Discussed case with ER attending, reviewed ECGs; Battery Filler team activated, half amp of atropine ordered in addition to routine upstream antiplatelet and Antithrombin therapies. Patient arrived at the Battery Filler at 1659 underwent first balloon activation at [...] and no additional complaints, except as documented [facility] Medical History (Updated 08/20/22 @ 16:41 by [...] x10E3/uL Lymph # (Auto) 2.8 (1.00-4.8) x10E3/uL [place] # (Auto) 0.9 H (0.0-0.8) x10E3/uL Eos [...] 25.1 Documented By: Steven Zamora DO 08/20/22 6400 Signed By: <Electronically signed by Steven Zamora DO> 08/20/22 1827 [facility] Work Phone: 1(405) 329-430107-03-2023 [facility] Procedure note [facility]07-03-2023 History general Narrative - Reported * Type Description Date Surgical History TURP 2022 Hospitalization History heart attack august 20 2022 [facility] Other 09-09-2022 Hospital Discharge instructions Patient Education [...] urethra. Follow these instructions at home: Take xrxh-yei-polvpjo and prescription medicines only as told by [...] 02/04/2006 Document Revised: 12/30/2018 Document Reviewed: 03/11/2017 [employer] Patient Education 2020 [employer]. Follow Up Care 10/21/2020 08:48:14 With:CACHORRO HAHN, Shanna Sánchez, URL Address: [address] [place] [address]- When: Unknown [facility] consult note Author Juanito Barney [facility] August 21, 2022 11:41am Note Date/Time August 21, 2022 11:41 am [facility] [address] [place] [address] Pulmonology Consult Note Signed Patient: Olaf Briones MR#: [id number] : 1945 Acct:[id number] Age/Sex: 77 / M Adm Date: 3 Loc: Room: [address] [place] [address] Type: REG SDC Attending Dr: Steven Zamora [...] ST elevation in the inferior lateral leads. Battery Filler was activated, patient received PCI to RCA. [...] 08/21/22 10:00 08/21/22 10:00 08/21/22 10:00 Narrative: ALIGNING CHECKER: Alert and oriented x3. No focal deficits. [...] found to have inferior lateral ST elevation [place] along with complete heart block. Battery Filler was activated, patient received PCI to RCA. Patient is currently doing much better with no signs or symptoms of heart block,he is on room air. Optimizing cardiac meds as per cardiology. Glycemic control DVT prophylaxis Discussed with nursing staff Documented By: Juanito Barney MD 08/21/22 113 6 Signed By: <Electronically signed by Juanito Barney MD> 08/21/22 1141 [facility] Work Phone: Discharge summary Author Steven Zamora [facility] August 22, 2022 3:21pm Note Date/Time August 22, 2022 3:17p m [facility] [address] [place] [address] Discharge Summary Signed Patient: Olaf Briones MR#: [id number] : 1945 Acct:[id number] Age/Sex: 77 / M Adm Date: 3 Loc: Room: [address] [place] [address]: Steven Zamora DO Copies to: [...] % (Auto) 72.5, Lymph % (Auto) 15.9, [place] % (Auto) 9.7, Eos % (Auto) 1.6, Baso % (Auto) 0.3, Nucleat RBC Rel Count 0.1, Neut # (Auto) 6.4, Lymph # (Auto) 1.4, [place] # (Auto) 0.9 H, Eos # (Auto) [...] doctor or pharmacist, without first calling the mac artist who implanted the stent. If you require [...] weight lifting, stair steppers, etc. until the mac artist approves these activities. Check with the mac artist on your first follow-up visit. CALL YOUR PHYSICIAN at [phone]: -If bleeding should occur from the catheter insertion site- apply pressure to the site then immediately call us. -Report any fever, redness, drainage, increased swelling, or firmness at the catheter insertion site. Some bruising or slight swelling may be present at the time of discharge. -Should arm or leg become cold, numb, white, or blue, contact the mac artist immediately. -IF you should experience episodes of [...] is recommended. Please call Central Scheduling at [phone] to schedule your appointment.] The attending mac artist or [facility] nurse clinician should provide you with specific instructions regarding activity, diet, medications, and further follow up for you. Follow the medication instructions provided on your discharge. If the dosages and instructions on this sheet differ from the dosage and instructions on the bottle, follow the instructions on the bottle. [facility] is not responsible for incorrect prescription [...] signed by Steven Zamora DO> 08/22/22 1521 [facility] Work Phone: Evaluation + Plan note Future Appointments Appointment Date:11/02/2022 08:30:00 AM Scheduled Provider:Shanna IVORY MD Location:[facility] Appointment Type:URO Office Visit [facility] evaluation note* Diagnosis Onset Date Resolution Status Heart block acute ST elevation (STEMI) myocardial infarction acute Syncope acute [facility] Work Phone: Evaluation note* Diagnosis Arteriosclerotic cardiovascular disease- Primary Unspecified cardiovascular disease Abnormal EKG Nonspecific abnormal electrocardiogram (ECG) (EKG) Mixed hyperlipidemia Primary hypertension Unspecified essential hypertension Post PTCA Postsurgical percutaneous transluminal coronary angioplasty status Essential hypertension Unspecified essential hypertension BMI 26.0-26.9,adult Easy bruisability Other symptoms involving skin and integumentary tissues documented in this encounter [facility] Work Phone: Evaluation note* Diagnosis Essential hypertension- Primary Unspecified essential hypertension Arteriosclerotic cardiovascular disease Unspecified cardiovascular disease Abnormal EKG Nonspecific abnormal electrocardiogram (ECG) (EKG) Mixed hyperlipidemia Post PTCA Postsurgical percutaneous transluminal coronary angioplasty status BMI 26.0-26.9,adult Never smoked tobacco documented in this encounter [facility] Work Phone: History and physical note Author Steven Zamora [facility] August 20, 2022 6:29pm Note Date/Time August 20, 2022 6:24p m [facility] [address] [place] [address] Cardiology H&P Signed with Addenda Patient: Olaf Briones MR#: [id number] : 1945 Acct:[id number] Age/Sex: 77 / M Adm Date: 3 Loc: Room: [address] [place] [address] Type: REG SDC Attending Dr: Steven Zamora DO Copies to: NON STAFF Steven Zamora DO~ ADDENDUM1 Impression: Inferolateral STEMI with change in complete heart block Plan: Proceed with emergent cath and PCI. A total of 60 minutes nonprocedural critical care time were devoted to the ER staff, review of ECG, Battery Filler staff, nursing staff, both patient and family [...] Discussed case with ER attending, reviewed ECGs; Battery Filler team activated, half amp of atropine ordered in addition to routine upstream antiplatelet and Antithrombin therapies. Patient arrived at the [facility] at 1659 underwent first balloon activation at [...] and no additional complaints, except as documented [facility] Medical History (Updated 08/20/22 @ 16:41 by [...] x10E3/uL Lymph # (Auto) 2.8 (1.00-4.8) x10E3/uL [place] # (Auto) 0.9 H (0.0-0.8) x10E3/uL Eos [...] <Electronically signed by Steven Zamora DO> 08/20/221826 [facility] Work Phone: History of Present illness Narrative* [...] notify me with change in cardiac status -[facility] DO Work Phone: History [...] notify me with change in cardiac status -[facility] DO Work Phone: History [...] he developed hematuria ultimately went to the [facility] where he underwent TURP and [...] me change in cardiac status or symptoms [facility] 250 DO Work Phone: Hospital course Narrative No data available for this section [facility] Discharge instructions No data available for this section [facility] No data available for this section [facility] progress note Author Elpidio Andres [facility] August 21, 2022 8:11am Note Date/Time August 21, 2022 8:11a m [facility] [address] [place] [address] Cardiology Progress Note Signed Patient: Olaf Briones MR#: [id number] : 1945 Acct:[id number] Age/Sex: 77 / M Adm Date: 3 Loc: Room: [address] [place] [address] Type: REG SDC Attending Dr: Steven Zamora [...] % (Auto) 64.1 Lymph % (Auto) 26.2 [place] % (Auto) 7.9 Eos % (Auto) 1.3 Baso % (Auto) 0.5 Nucleat RBC Rel Count 0.1 Neut # (Auto) 6.9 Lymph # (Auto) 2.8 [place] # (Auto) 0.9 H Eos # (Auto) [...] MPV Neut % (Auto) Lymph % (Auto) [place] % (Auto) Eos % (Auto) Baso % (Auto) Nucleat RBC Rel Count Neut # (Auto) Lymph # (Auto) [place] # (Auto) Eos # (Auto) Baso # [...] MPV Neut % (Auto) Lymph % (Auto) [place] % (Auto) Eos % (Auto) Baso % (Auto) Nucleat RBC Rel Count Neut # (Auto) Lymph # (Auto) [place] # (Auto) Eos # (Auto) Baso # (Auto) Monocyte Dist Width PT INR APTT PHA Creatinine Clear Sodium Potassium Chloride Carbon Dioxide Anion Gap BUN Creatinine Est GFR (CKD-EPI) Glucose Calcium Total Creatine Kinase Troponin I High Sens 9010.4 H* 09833.3 H* 06311.9 H* B-Natriuretic Peptide Triglycerides Cholesterol LDL Cholesterol, Calc VLDL Cholesterol HDL Cholesterol Cholesterol/HDL Ratio 08/21/22 08/21/22 08/21/22 05:30 05:30 05:30 Corrected WBC 13.6 H Uncorrected WBC Count 13.6 H RBC 4.66 Hgb 14.6 Hct 42.7 MCV 91.6 MCH 31.4 MCHC 34.3 RDW 13.5 Plt Count 171 MPV 9.5 Neut % (Auto) 85.4 Lymph % (Auto) 8.2 [place] % (Auto) 6.1 Eos % (Auto) 0.1 Baso % (Auto) 0.2 Nucleat RBC Rel Count 0.0 Neut # (Auto) 11.7 H Lymph # (Auto) 1.1 [place] # (Auto) 0.8 Eos # (Auto) 0.0 Baso # (Auto) 0.0 Monocyte Dist Width PT INR APTT PHA Creatinine Clear 74.81 Sodium 138 Potassium 3.8 Chloride 103 Carbon Dioxide 27.1 Anion Gap 11.7 BUN 12 Creatinine 0.71 Est GFR (CKD-EPI) > 60.0 Glucose 162 H Calcium 9.4 Total Creatine Kinase Troponin I High Sens 00398.9 H* B-Natriuretic Peptide Triglycerides 124 Cholesterol 132 [...] [facility] (2) Heart block: Assessment/Problem Details: Resolved [...] signed by Elpidio Andres MD> 08/21/22 0811 [facility] Work Phone: Reason for referral (narrative)* Consultation (Routine) - Authorized Specialty Diagnoses / Procedures Referred By Contac t Referred To Contact Cardiology Diagnoses Arteriosclerotic cardiovascular disease Abnormal EKG Mixed hyperlipidemia Procedures Follow Up In Cardiology Ashutosh Ling MD [address] [facility] [address], [address] [place] [address] Ashutosh Ling MD [address] [facility] [address], [address] [place] [address] Referral ID Status Reason Start Date Expiration Date V isits Requested Visits Authorized [id number] Authorized 01/09/2023 01/09/2024 1 1 [facility] Work Phone: Reason for referral (narrative)* Consultation (Routine) - Authorized Specialty Diagnoses / Procedures Referred By Mellissa shin Referred To Contact Cardiology Diagnoses Arteriosclerotic cardiovascular disease Procedures Follow Up In Cardiology Ashutosh Ling MD [address] [facility] 2, [address] [address] Ashutosh Ling MD [address] [place] [address] 2, [address] [address] Referral ID Status Reason Start Date Expiration Date V isits Requested Visits Authorized [id number] Authorized 06/26/2023 06/25/2024 1 1 [facility] Work Phone: Family History No Family [...] Up In Cardiology Ashutosh Ling MD [address] [facility] 2, [address] [address] Ashutosh Ling MD [address] [facility] [address], [address] [place] [address] Referral ID Status Reason Start Date Expiration Date V isits Requested Visits Authorized [id number] Authorized 01/09/2023 01/09/2024 1 1 Care Team [...] Steve Zamora , DO Attending Provider Active Blending Kettle Tender Relationship Specialty Start Date End Date Jame Barraza MD [address] [place], [place] [phone] PCP - General Family Medicine 08/31/22 Blending Kettle Tender Relationship Specialty Start Date End Date Jame Barraza MD [address] [id number] PCP - General Family Medicine 08/31/22 [employer]ending Kettle Tender Relationship Specialty Start Date End Date Ashutosh Ling MD [address] [facility] [address], [address] [place], [place] [phone] PCP - [employer] PCP 08/18/22 Dav Peguero MD [address] [facility] [address] [place] [address] PCP - General Family Medicine 01/09/23 Blending Kettle Tender Relationship Specialty Start Date End Date Dav [...] CREATED AUTHOR AUTHOR'S ORGANIZ ATION 09/01/2022 [facility] DATE CREATED AUTHOR AUTHOR'S ORGANIZ ATION 09/06/2022 [employer] DATE CREATED AUTHOR AUTHOR'S ORGANIZ ATION 09/07/2022 [facility] DATE CREATED AUTHOR AUTHOR'S ORGANIZ ATION 10/10/2022 [facility] DATE CREATED AUTHOR AUTHOR'S ORGANIZ ATION 11/27/2022 [facility] Spencer [facility] ical Center DATE CREATED AUTHOR AUTHOR'S ORGANIZ ATION 06/19/2023 [facility] EPIC DATE CREATED AUTHOR AUTHOR'S ORGANIZ ATION 06/28/2023 [facility] DATE CREATED AUTHOR AUTHOR'S ORGANIZ ATION 08/01/2023 [facility] Goals (unrecognized section and content) Goals may be documented in a n alternate section Source Comments (unrecognize d section and content) In the event this informatio n is protected by the Federal Confidentiality of Alcohol and Drug Abuse Patient Records regulations: The Federal rules restrict any use of the information to criminally investigate or prosecute any alcohol or drug abuse patient.[facility] the event this information is protected by the Federal Confidentiality of Alcohol and Drug Abuse Patient Records regulations: The Federal rules restrict any use of the information to criminally investigate or prosecute any alcohol or drug abuse patient.[facility] FOR RECORDS PERTAINING TO PATIENTS WHO ARE [...] BE BASED ON THE PRIMARY CLINICAL RECORDS. [facility] [employer] [facility]. provides no warranty or guarantee of the accuracy or completeness of information in this document.
--- NOTE | 2023-11-28 08:30 | XR_ITS ---
The [address] [address] Patient Name: OLAF BRIONES MRN: [id number] date: 1945 Sex: M Assigned Patient Location: [facility] Current Patient Location: Accession/Order Number: [id number] Exam Date: 11/28/2023 08:32 Report Date: 11/29/2023 04:56 At the request of: SHANNA IVORY Procedure: XR abdomen 1V EXAMINATION: XR abdomen 1V HISTORY: Kidney Stones COMPARISON: XR abdomen 11/20/2022 FINDINGS: KIDNEY/URETER - RIGHT: Numerous tiny calcifications projecting over the kidney. KIDNEY/URETER - LEFT: Numerous calcifications projecting over kidney, largest is 5 mm. PELVIS: No appreciable ureteral stones. BOWEL: No abnormal dilation or deviation. BONES: No acute abnormality. OTHER: Negative. No abnormal gaseous collections. XR/XR abdomen 1V IMPRESSION: 1. Grossly stable bilateral nephrolithiasis. Electronically authenticated by: KEYLA POZO Date: 11/29/2023 04:56
== END 2023-11-28 08:11 | disposition home or self-care (01) ==
LOC: RAD 08:22
PROVIDERS: PCP Family Medicine; Visit Provider Urology
DX: N20.0 Calculus of kidney (principal)
CPT/HCPCS: 74018

== ENCOUNTER 2023-12-13 11:40 | Outpatient (OUT) | payer MEDICARE, SELFPAY ==
--- OUTSIDE RECORDS SUMMARY | 2023-12-11 12:06 | XMS_ITS | CCD ---
Author Organization [facility] CliniSyil Care Team Providers Care Supervisor Graphite Name Role Phone Jame Barraza Unavailable Unavailable Unavailable JAME BARRAZA Primary Care Physician [phone] DR SHANNA IVORY Attending Unavailable CHRISTI, DR JAME Bowers Primary Care Unavailable DR SHANNA IVORY Admitting Unavailable DR SHANNA IVORY Consulting Unavailable HAMLIN, DR AMNA Saucedo Consulting Unavailable DOMINGUEZ GUTIERREZ Admitting Unavailable DOMINGUEZ GUTIERREZ Attending Unavailable DR JAME BARRAZA Primary Care Unavailable NON STAFF Primary Care Provider Unavailsigrid Cochran DO Shannon Emergency Provider [phone] DO Steven Zamora Attending Provider NON STAFF Primary Care Provider Unavailsigrid Cochran DO Shannon Emergency Provider DO Steven Zamora Admit Provider DO Steven Zamora Attending Provider [phone] MD Juanito Barney Other Provider JAME BARRAZA Primary Care Physician Steven Zamora Admitting Unavailable Steven Zamora Attending Unavailable NON STAFF Primary Care Unavailable Juanito Barney Consulting Unavailable Jame Barraza MD Primary Care Provider Nahomi Hernandez Unavailable DAVID ANDREWS Attending Unavailable DAVID ANDREWS Admitting Unavailable Dr. Jame Barraza Primary Care Unavailab alda Ling, Dr. Canada Attending Unavailusama Ling, Dr. Canada Referring Unavailusama Barraza, Dr. Jame Fountain Primary Care Unavailab alda Hernandez, Dr. Nahomi Guerrero Primary Care Unavailab alda Ling, Dr. Canada Attending Unavaila ble Eva, Dr. Canada Referring Unavaila ashley Zamora, Dr. Ben Wilson Attending Kushal Hernandez, Dr. Nahomi Guerrero Primary Care Unavailab alda Barraza, Dr. Jame Fountain Primary Care Unavailab alda Barraza, Dr. Jame Fountain Primary Care Unavailab alda Siddiqui, Estella Unavailable Ashutosh Ling MD Unavailable [phone] Dav Peguero MD Primary Care Provider DAV PEGUERO Attending Unavailable DAV PEGUERO Attending Unavailable LUCINDA VICKERS Attending Unavailable Anat HAHN, Dav [facility] Primary [facility] Provider ASHUTOSH LING Attending Unavailable DAV PEGUERO Primary Care Unavailable ASHUTOSH LING Attending Unavailable ASHUTOSH LING Referring Unavailable DAV PEGUERO Primary Care Unavailable Rachna HAHN, Alonzo Bobo Attending Unavailable Rachna HAHN, Andmarc Bobo Attending Unavailable Rachna HAHN, Andrius Jihan Attending Unavailable Rachna HAHN, Alonzo Bobo Attending Unavailable Shanna IVORY Attending Unavailable Shanna IVORY Attending Unavailable DAV PEGUERO Primary Care Physician [phone] Allergies Allergy Classification Reported Allergen(s) Allergy Type Date of Onset Reaction(s) Facility (20 sources) Albuterol; Translations: [albuterol] Drug Allergy 11-12-19 12 Headache (finding), Other: See Comments, Headache [facility] (19 sources) hydroCHLOROthiazide; Translations: [hydroCHLOROthiazide TABS] Drug Allergy 08-21-19 23 Eruption of skin (disorder), Rash [facility] (5 sources) Sulfamethoxazole / Trimethoprim; Translations: [sulfamethoxazole-trim ethoprim] Drug Allergy Unknown (qualifier value) [facility] (1 source) Albuterol Drug Allergy [facility] (6 sources) hydroCHLOROthiazide; Translations: [HYDROCHLOROTHIAZIDE] Drug Allergy 08-21-19 23 Rash [facility] Repository (2 sources) Adhesive Tape; Translations: [adhesive tape] Propensity to adverse reactions 08-22-19 Rash [facility] (1 source) Albuterol Drug Allergy 08-21-19 [facility] Repository (1 source) hydroCHLOROthiazide Drug Allergy 08-21-19 [facility] Repository (2 sources) Amoxicillin; Translations: [amoxicillin] Drug Allergy Blood in urine (finding) [facility] Repository Medications Current Medications Medication Drug Class(es) Dates Sig (Normalized) Sig (Original) Albuterol (1 source) beta2-Adrenergic Agonist Albuterol Active allopurinol 300 mg oral tablet (20 sources) Xanthine Oxidase Inhibitor Start: 10-02-2018 take 1 tablet by mouth once daily allopurinol 300 mg Tab 300 mg = 1 tab(s), Oral, Daily Start Date: 10/02/18 Status: Ordered Comment on above: Take 300 mg by mouth once daily. amLODIPine 5 mg oral tablet (20 sources) Dihydropyridine Calcium Channel Reynaldo Start: 10-24-2018 take 1 tablet by mouth once daily amLODIPine 5 mg Tab 5 mg = 1 tab(s), Oral, Daily Start Date: 10/24/18 Status: Ordered Comment on above: Take 5 mg by mouth o nce daily. aspirin 81 mg delayed release oral tablet (19 sources) Platelet Aggregation Inhibitor, Nonsteroidal Anti-inflammatory Drug Start: 11-29-2023 take 1 tablet by mouth once daily aspirin 81 mg Oral EC Tab See Instructions, 1 tab(s) Oral Daily, Refills(s) 0 Start Date: 11/29/23 Status: Ordered Start: 01-09-2023 End: 01-09-2024 take 1 tablet by mouth every other day aspirin 81 mg EC tablet Indications: Arteriosclerotic cardiovascular disease Take 1 tablet (81 mg) by mouth every other day. 45 tablet 3 01/09/2023 01/09/2024 Active Start: 11-26-2022 [facility] ASP[facility] 81 MG TABLET [facility] ASPIRIN EC 81 MG TABLET Start Date: 11/26/22 Status: Ordered Start: 11-24-2020 End: 01-09-2023 take 1 tablet by mouth once daily aspirin, enteric coated (ASPIRIN, ENTERIC COATED) 81 mg EC tablet Take 81 mg by mouth once daily. 0 11/24/2020 Active take 1 tablet by rk th once daily Aspirin 81 81 MG 1 tablet Orally Once a day Active Comment on above: Take 81 mg by mouth once daily. atorvastatin 40 mg oral tablet (10 sources) HMG-CoA Reductase Inhibitor Start: take 1 tablet by mouth once daily atorvastatin 40 mg Tab 40 mg = 1 tab(s), Oral, Daily, Refills(s) 0 Start Date: 11/29/23 Status: Ordered Start: 08-22-2022 End: 06-26-2023 take 1 tablet by mouth once daily Atorvastatin Calcium 80 MG Oral Tablet TAKE ONE TABLET BY MOUTH ONCE A DAY Quantity: 30 Refills: 11 Ordered: 02-Oct-2022 NoahBen sanchez DO Start : 01-Oct-2022 Active take 1 tablet by rk th once daily atorvastatin (Lipitor) 40 mg tablet Take 1 tablet (40 mg) by mouth once daily. Active carvedilol 3.125 mg oral tablet (13 sources) alpha-Adrenergic Reynaldo, beta-Adrenergic Reynaldo Start: 06-26-2023 End: 06-25-2024 take 1 tablet by mouth twice daily at mealtime carvedilol (Coreg) 3.125 mg tablet Indications: Arteriosclerotic cardiovascular disease , Essential hypertension Take 1 tablet (3.125 mg) by mouth 2 times a day with meals. 60 tablet 11 06/26/2023 06/25/2024 Active Start: 08-22-2022 End: 06-26-2023 carvedilol 6.25 mg Tab Refil ls(s) 0 Start Date: 11/26/22 Status: Ordered Comment on above: Take 6.25 mg by mout h twice daily with meals. citalopram 10 mg oral tablet (1 source) Serotonin Reuptake Inhibitor Start: 2023 take 1 tablet by mouth once daily citalopram (CeleXA) 10 mg tablet Take 1 tablet (10 mg) by mouth once daily. 06/18/2023 Active clopidogrel 75 mg oral tablet (2 sources) P2Y12 Platelet Inhibitor Start: 2023 End: 2024 take 1 tablet by mouth once daily Plavix 75 mg Tab 75 mg = 1 tab(s), Oral, Daily, Refills(s) 0 Start Date: 11/29/23 Status: Ordered hydroCHLOROthiazide (1 source) Thiazide Diuretic hydroCHLOROthi azide Active lisinopril 2.5 mg oral tablet (13 sources) Angiotensin Converting Enzyme Inhibitor Start: 2022 lisinopril 2.5 mg Tab Refills(s) 0 Start Date: 11/26/22 Status: Ordered End: 06-26-2023 take 1 tablet by mouth once daily lisinopril 5 mg tablet Take 1 tablet (5 mg) by mouth once daily. 06/26/2023 Discontinued (Dose adjustment) take 0.5 tablet by m outh once daily Lisinopril 5 MG Oral Tablet TAKE 1/2 TABLET DAILY. Quantity: 45 Refills: 3 Ordered: 05-Sep-2022 Ashutosh Ling MD Active Comment on above: Take 2.5 mg by mouth once daily. nitroglycerin 0.4 mg sublingual tablet (12 sources) Nitrate Vasodilator Start: 11-26-2022 nitroglycerin 0.4 mg sublingual Tab Refills(s) 0 Start Date: 11/26/22 Status: Ordered Start: 08-22-2022 Nitroglycerin 0.4 MG Sublingual Tablet Sublingual PLACE [...] 5 minutes as needed for chest pain. Completed/Discontinued Medications Medication Drug Class(es) Dates Sig (Normalized) Sig (Original) cholecalciferol 0.125 mg oral capsule (6 sources) Vitamin D Vitamin D 125 MCG (5000 UT) CAPS TAKE 1 CAPSULE Daily [...] Take 75 mg by mouth twice daily. metoprolol tartrate 25 mg oral tablet [...] 0 Refills: 0 Ordered: 24-Nov-2020 DO Active rosuvastatin calcium 20 mg oral tablet (10 sources) HMG-CoA Reductase Inhibitor Start: End: take 20 mg by mouth once daily [...] DAILY. Quantity: 90 Refills: 3 Ordered: 01-Jun-2022 Eva HAHN, Ashutosh Active ticagrelor 90 mg oral tablet (11 sources) Start: 08-22-2022 End: 06-26-2023 take 1 tablet by mouth twice daily ticagrelor (BRILINTA) 90 mg tablet Take 90 mg by mouth twice daily. 0 08/22/2022 Active Brilinta 90mg Ta gianfranco as directed Active Comment on above: Take [...] Documented Da te Episodic/Chronic Acute myocardial infarction (9 sources) Myocardial infarction; Translations: [ST elevation (STEMI) myocardial infarction of unspecified site] Onset: 08-20-2022 08-20-2022 Chronic Calculus of urinary tract (10 sources) Kidney stone; Translations: [Calculus of kidney] Onset: 10-26-2021 Episodic Conditions associated with dizziness or vertigo (7 sources) Dizziness; Translations: [Dizziness and giddiness] Episodic Conduction disorders (6 sources) Heart block ; Translations: [Conduction disorder, unspecified] Onset: 08-20-2022 08-20-2022 Chronic Coronary atherosclerosis and other heart disease (13 sources) Coronary arteriosclerosis; Translations: [Atherosclerotic heart disease of [place] coronary artery without angina pectoris] Onset: 08-27-2022 [...] 10-24-2018 Chronic Genitourinary symptoms and ill-defined conditions (19 sources) Microscopic hematuria; Translations: [Asymptomatic microscopic hematuria] Onset: 10-27-2021 Episodic Hyperplasia of prostate (10 sources) Benign prostatic hypertrophy with outflow obstruction; Translations: [Benign prostatic hyperplasia with lower urinary tract symptoms] Onset: 10-27-2021 Chronic Immunizations and screening for infectious disease (1 source) Patient encounter status; Translations: [Other specified vaccination] Episodic Inflammatory conditions of male genital organs (4 sources) Prostatitis 10-24-2018 Episodic Nutritional deficiencies (2 sources) Undernutrition; Translations: [Mild protein-calorie malnutrition] Onset: 08-29-2022 08-29-2022 Chronic Other aftercare (1 source) Long-term current use of anticoagulant; Translations: [terminal carman (current) use of anticoagulants] Onset: 11-29-2023 Episodic Other diseases of kidney and ureters (1 source) Urinary tract obstruction; Translations: [Other obstructive and reflux uropathy] Onset: 08-26-2022 Episodic Other ear and sense organ disorders (1 source) Impacted cerumen, bilateral Episodic Other male genital disorders (2 sources) Male erectile dysfunction, unspecified; Translations: [Erectile dysfunction] Onset: 11-29-2023 Chronic Other nutritional; endocrine; and metabolic disorders (4 [...] and collapse] Onset: 08-20-2022 08-20-2022 Episodic Unclassified (4 sources) Asymptomatic microscopic hematuria 10-27-2021 Unclassified (1 source) Drug therapy finding 11-29-2023 Urinary tract infections (1 source) Urinary tract [...] Ambulatory Visit Summaryon 1 Ambulatory Visit Summary Ambulatory Visit Summary OLAF BRIONES Steven :1945 Visit Date:11/29/2023 Ambulatory Visit Instructions Your Diagnosis Kidney stone BPH with urinary obstruction Erectile dysfunction Asymptomatic microscopic hematuria Anticoagulated Your Care Team Attending Physician - Shanna IVOYR MD Primary Care Physician - DAV PEGUERO MD This Is Your Medications List Contact prescribing physician if questions or concerns Misc Prescription ([facility] ASPIRIN EC 81 MG TABLET) allopurinol (allopurinol 300 mg Tab) amlodipine (amLODIPine 5 mg Tab) aspirin (aspirin 81 mg Oral EC Tab) atorvastatin (atorvastatin 40 mg Tab) carvedilol (carvedilol 6.25 mg Tab) clopidogrel (Plavix 75 mg Tab) lisinopril (lisinopril 2.5 mg Tab) nitroglycerin (nitroglycerin 0.4 mg sublingual Tab) Procedures Performed Cystourethroscopy with irrigation and evacuation [...] lithotripsy for renal calculus (2000). Discharge Vitals Temperature (Temporal Artery) 37 ?C Heart Rate (Peripheral) 65 Respiratory Rate 16 Blood Pressure 129/65 Height 172 cm Height 68 in Weight 75.4 kg Weight 165.88 lb BMI 25.49 What to do next Scheduled Follow-Up Appointments Saturday 8:45 AM EST With: Shanna IVORY MD Where: [facility] [address] [place] [address]- You Need to Schedule the Following Appointments Follow Up with Shanna IVORY MD, URL When: Where: [facility] [address], [place] [address]- Medications What How Much When Instructions Unchanged allopurinol (allopurinol 300 mg Tab) 1 Tablets By Mouth Every day Contact prescribing physician if questions or concerns Unchanged amlodipine (amLODIPine 5 mg Tab) 1 Tablets By Mouth Every day Contact prescribing physician if questions or concerns Unchanged aspirin (aspirin 81 mg Oral EC Tab) See instructions 1 tab(s) Oral Daily Contact prescribing physician if questions or concerns Unchanged atorvastatin (atorvastatin 40 mg Tab) 1 Tablets By Mouth Every day Contact prescribing physician if questions or concerns Unchanged carvedilol (carvedilol 6.25 mg Tab) Contact prescribing physician if questions or concerns Unchanged clopidogrel (Plavix 75 mg Tab) 1 Tablets By Mouth Every day Contact prescribing physician if questions or concerns Unchanged lisinopril (lisinopril 2.5 mg Tab) Contact prescribing physician if questions or concerns Unchanged Misc Prescription ([facility] ASPIRIN EC 81 MG TABLET) 0 Contact prescribing physician if questions or concerns Unchanged nitroglycerin (nitroglycerin 0.4 mg sublingual Tab) Contact prescribing physician if questions or concerns Allergies Bactrim (Unknown) albuterol (Headache) amoxicillin (Hematuria) hydroCHLOROthiazide (Rash) Problems Ongoing - Any problem that you are currently receiving treatment for. Anticoagulated Asymptomatic microscopic hematuria BPH with urinary obstruction BPH without urinary obstruction Erectile dysfunction Gross hematuria Hypertension Kidney stone Microscopic hematuria Myocardial infarction Prostatitis Weak urinary stream Patient Survey You may receive a survey via text or e-mail asking about your office visit. Please share your experience with us by completing your survey. We appreciate your feedback and thank you for choosing us for your care. Education Materials 24-Hour Urine Collection Why am I having this test? A 24-hour urine specimen is a lab test that requires you to collect all of your urine for an entire day. This is sometimes called a timed urine test. It can provide more information than a single urine sample. There are many reasons to have this test. Your health care provider may order the test to check for or monitor the following conditions: ? High blood pressure. ? Kidney disease. ? Kidney stones. ? Urinary tract infections. ? . ? Diabetes. How do I prepare for this test? ? You may be asked to follow a special diet during or before the collection period. Follow any instructions from your health care provider. If no special instructions are given, you may eat and drink normally. ? Take [id number] and prescription medicines (more content not included)... Normal [facility] Urology Office/Clinic Noteon 11-29-2023 Urology Office/Clinic Note Urology Office/Clinic Note Chief Complaint kidney stone, BPH HPI Staff 1 yr w/ KUB. Previous dx: BPH with obstruction, kidney stone, AMH. S/p TURP 08/28/22 at [facility]. *Allopurinol 300mg qd Dysuria: denies Incomplete bladder emptying: denies Hematuria: denies Frequency: denies Urgency: denies Nocturia: 0-1x once in a while Stream: good steady Leaking: denies Post void dripping: denies Wearing pads/ Depends: denies Urge incontinence: denies Stress incontinence: denies Incontinence without Sensory Awareness: denies Abdominal pain: denies Flank pain: denies Sexual complaints: denies History of Present Illness Tests reviewed: UA, KUB I have reviewed the previous health record information and history for this patient from Dr. Ivory. I have reviewed and verified the staff HPI to be accurate for this encounter. Review of Systems PHQ Score Initial Depression Screen Score: 0 SCORE ROS - Provider Constitutional: denies weight loss, denies hot flashes. Eyes: denies eye problems. Gastrointestinal: denies nausea, denies vomiting. Cardiovascular: denies chest pain or angina. Integumentary: no dryness Musculoskeletal: denies musculoskeletal symptoms. ENMT: denies otolaryngeal symptoms. Respiratory: no shortness of breath. Heme/Lymph: denies easy bleeding tendency, denies easy bruising tendency. Psychiatric: no confusion, no anxiety. Genitourinary: See HPI. Physical Exam Vitals & Measurements T: 37 ?C(Temporal Artery) HR: 65(Peripheral) RR: 16 BP: 129/65 HT: 68 in HT: 172 cm WT: 75.4 kg WT: 165.88 lb BMI: 25.49 General Appearance: alert, no distress, well nourished, well developed male. Assessment/Plan 1. Kidney stone (N20.0: Calculus of kidney) No metabolic workup since 2019. KUB 10/26/21 - Bilateral stones, L>R. R side obscured. Stone Analysis 08/28/22 - 50% CaOx Jack, 40% CaOx Di, and 10% minor components. KUB 11/20/22 - Bilat renal calculi, largest on R measuring up to 5 mm and largest on L measuring up to 3 mm. KUB 11/28/23 [facility] - Numerous tiny stones bilaterally, largest 5 mm L kidney. Taking Allopurinol 300 mg qd. No stone issues since prior OV. Reviewed imaging with pt. Not a candidate for ESWL due to #5. Would only be a candidate for laser litho however still greater risk of bleeding due to AC. Discussed metabolic workup including 24 hour urine and blood work for stone prevention. Follow up 4 mos with metabolic workup or sooner if needed. Pt understands and agrees with plan. 2. BPH with urinary obstruction (N40.1: Benign prostatic hyperplasia with lower urinary tract symptoms) S/P TURP 2006. [1] S/p TURP 08/28/22 at [facility]. Not taking any prostate or bladder meds. Voiding well. 3. Erectile dysfunction (N52.9: Male erectile dysfunction, unspecified) Shares unable to achieve erection after second TURP, was able to achieve after first TURP. Explained potential cause of this (extensive coagulation from bleeding.). 4. Asymptomatic microscopic hematuria (R31.21: Asymptomatic microscopic hematuria) Chronic [1]. Pt unable to provide urine sample today. 5. Anticoagulated (Z79.01: terminal carman (current) use of anticoagulants) No longer on Brilinta (due to SE of back pain) now on Plavix. Also Aspirin qod. Follow-up With When Contact Information CACHORRO HAHN, Shanna Sánchez, URL [facility] [address], [place] [address]- Additional Instructions: 4 mos with metabolic workup Patient Education 24-Hour Urine Collection Laser Therapy for Kidney Stones I, Cathi Ivan, personally scribed for Dr. Ivory on 11/29/2023 09:47:20. . Documentation recorded by the scribe, Cathi Ivan, accurately reflects the services(s) I performed and decisions made by me. Authenticated by Dr. Ivory on 11/29/2023 09:53:46. Problem List/Past Medical History Ongoing Anticoagulated Asymptomatic microscopic hematuria BPH with urinary obstruction BPH without urinary obstruction Erectile dysfunction Gross hematuria Hypertension Kidney stone Microscopic hematuria [...] ESWL - Extracorporeal shockwave lithotripsy for renal ca (more content not included)... Normal [facility] Comment on above: Result Comment: Elec tronically Signed By: Shanna IVORY MD\.br\Date and Time Signed: 11/29/23 09:53 EDT\.br\Electronically Co-Signed By: Cathi Ivan\.br\Date and Time Co-Signed: 11/29/23 09:47 EDT Sea 09-06-2022 CNPN Telephone (UROLMN) -- OLAF BRIONES ([id number]) 1945 M Date Time Provider Department 09/06/22 [...] tried calling the patient, no answer. Left . Dr. Andrews said patient can stop the [...] Date Reviewed: 08/31/2022 Reviewed by: Tung Rojo, BRICE - Fully Assessed Reason for Visit: Patient [...] Hematuria [R31.9] 08/27/2022 Coronary artery disease involving [place] hinton*08/27/2022 Adverse reaction to antiplatelet agent [T45.7X5*08/27/2022 Myocardial infarction (HCC) [I21.9] 08/27/2022 Essential (primary) hypertension [I10] 08/27/2022 Type 2 diabetes mellitus without complication, *08/27/2022 Leukocytosis [D72.829] 08/27/2022 Malnutrition of mild degree (HCC) [E44.1] 08/29/2022 Encounter Status:Closed by JUSTINE WILSON RN on 09/06/22 Normal [facility] Office Visit (Cardiology)on 09-05-2022 Follow-up visit [...] Status: Hold For - Scheduling Requested for: [id number] Agreement : I agree to have my patient participate in the phase III outpatient cardiac rehabilitation program after completion of the phase II program. Consent : I consent to have my patient participate in the cardiac rehabilitation program. I will continue regular medical care of my patient throughout his/her participation in the program. Individualized Treatment Plan and Exercise Prescription : Request the Furniture Lumber Production Worker to share responsibility for developing an ITP [...] in adult Healthy Weight Tips; Status:Complete; Done: [id number] Some eating tips that can help you lose weight.; Status:Complete; Done: [id number] SocHx: Former smoker Tobacco Use Screening; Status:Complete; Done: [id number] Patient Instructions Please bring all medicines, vitamins, and herbal supplements with you when you come to the office. Prescriptions will not be filled unless you are compliant with your follow up appointments or have a follow up appointment scheduled as per instruction of your physician. Refills should be requested at the time of your visit. Follow up in 4 months Same meds cardiac rehab -one month History of Present [...] he developed hematuria ultimately went to the [facility] where he underwent TURP and removal [...] 1 TABLET (more content not included)... Normal [employer] Tobacco Screening.on 023 Adult depression screening assessment No [facility] [employer] DO Work Phone: Fall risk assessment a) No falls within the last year [facility] [employer] 250 DO Work Phone: Tobacco use status [facility] b) No [facility]-Sandu eduardo 250 DO Work Phone: Sea 09-04-2022 CNPN Telephone (PODCCP) -- OLAF BRIONES ([id number]) 1945 M Date Time Provider Department 09/04/22 DEBORAH IBARRA PODCCP During your visit today, we recorded the following information about you: Deborah Ibarra RN 09/04/2022 12:52 PM Signed PATIENT INFORMATION Record ID: [id number] Patient Name: Olaf Briones Hospital: [facility] [place]: [facility] [place] Attending: David Andrews Center: Urology INSTRUCTIONS SN to remind patient of appointment date, time, location All Clear All Clear SURVEY INFORMATION Medical/Nurse Uniform Patrol Police Officer: Deborah Ibarra 1. Your discharge instructions are [...] Reason for Visit: Follow Up Phone Call [[id number]] Cmt: All Clear Prescriptions as of 09/04/2022 [...] Hematuria [R31.9] 08/27/2022 Coronary artery disease involving [place] hinton*08/27/2022 Adverse reaction to antiplatelet agent [T45.7X5*08/27/2022 Myocardial infarction (HCC) [I21.9] 08/27/2022 Essential (primary) hypertension [I10] 08/27/2022 Type 2 diabetes mellitus without complication, *08/27/2022 Leukocytosis [D72.829] 08/27/2022 Malnutrition of mild degree (HCC) [E44.1] 08/29/2022 Encounter Status:Closed by DEBORAH IBARRA on 09/04/22 Normal [facility] CBC panel Auto (Bld)on 08-31 Erythrocyte distribution width (RBC) [Ratio] 12.8 % Normal 11.5-15.0 [facility] Comment on above: Order Comment: Speci men Type: BLOOD SPECIMENOrdering Facility: [facility] Address: [address] [place] [id number] Performed By: #### 5 [id number] ####[facility] LABCLIA [id number] [place] Hematocrit (Bld) [Volume fraction] 30.7 % Low 39.0-51.0 [facility] Comment on above: Order Comment: Speci men Type: BLOOD SPECIMENOrdering Facility: [facility] Address: [address] [place] [address] Performed By: #### 5 8410-2 ####[facility] LABIA [id number] [address] STATES OF [facility] Hemoglobin (Bld) [Mass/Vol] 10.4 g/dL Low 13.0-17.0 [facility] Comment on above: Order Comment: Speci men Type: BLOOD SPECIMENOrdering Facility: [facility] Address: [address] [place] [address] Performed By: #### 5 8410-2 ####[facility] LABIA [id number] [address] [place] [facility] MCH (RBC) [Entitic mass] 31.4 pg Normal 26.0-34.0 [facility] Comment on above: Order Comment: Speci men Type: BLOOD SPECIMENOrdering Facility: [facility] Address: [address] [place] [address] Performed By: #### 5 8410-2 ####[facility] [id number] [address] [place] MCHC (RBC) [Mass/Vol] 33.9 g/dL Normal 30.5-36.0 [facility] Comment on above: Order Comment: Speci men Type: BLOOD SPECIMENOrdering Facility: [facility] Address: [address] [place], [place] [address] Performed By: #### 5 8410-2 ####[facility] LABIA [id number] [place] [address] [place] MCV (RBC) [Entitic vol] 92.7 fL Normal 80.0-100.0 [facility] Comment on above: Order Comment: Speci men Type: BLOOD SPECIMENOrdering Facility: [facility] Address: [address] Performed By: #### 5 8410-2 ####[facility]IA [id number] [place] [address] [place] Nucleated RBC (Bld) [#/Vol] 10*3/uL Normal <0.01 [facility] Comment on above: Order Comment: Speci men Type: BLOOD SPECIMENOrdering Facility: [facility] Address: [address] Performed By: #### 5 8410-2 ####[facility]IA [id number] [place] [address] [place] Platelet mean volume (Bld) [Entitic vol] 11.5 fL Normal 9.0-12.7 [facility] Comment on above: Order Comment: Speci men Type: BLOOD SPECIMENOrdering Facility: [facility] Address: [address] Performed By: #### 5 8410-2 ####[facility]IA [id number] [place] [address] [place] Platelets (Bld) [#/Vol] 194 10*3/uL Normal 150-400 [facility] Comment on above: Order Comment: Speci men Type: BLOOD SPECIMENOrdering Facility: [facility] Address: [address] [place] [address] Performed By: #### 5 8410-2 ####[facility] [id number] [place] [address] [place] RBC (Bld) [#/Vol] 3.31 10*6/uL Low 4.20-6.00 [facility] Comment on above: Order Comment: Speci men Type: BLOOD SPECIMENOrdering Facility: [facility] Address: [address] [place] [address] Performed By: #### 5 8410-2 ####[facility] LABCLIA [id number] [address] [address] [facility] [place] WBC (Bld) [#/Vol] 10.56 10*3/uL Normal 3.70-11.00 [facility] Comment on above: Order Comment: Speci men Type: BLOOD SPECIMENOrdering Facility: [facility] Address: [address] [place] [address] Performed By: #### 5 8410-2 ####[facility] LABCLIA [id number] [address] [address] [facility] CNDSon 08-31-2022 CNDS HNO ID: [id number] Author: David Andrews MD Service: Urology Author [...] SICU, ready to transfer to [facility]. Hernandez light pink on traction. Discontinued on Zosyn given negative blood and urine cultures. - DOA#3/POD#2: Hemoglobin continues to be stable. Urine light pink off traction. Transferred to [facility] - DOA#4/POD#3: Will discharge today with hernandez [...] Your Medications These medications were sent to [facility] [address] [place] [address] Hours: Saturday-Saturday 7am-8pm, Saturday, Saturday and Holidays [...] 2022 TIME: 8:41 AM [facility] STAFF PHYSICIAN NOTE OF PERSONAL INVOLVEMENT IN [...] care coordinatio (more content not included)... Normal [facility] Comprehensive metabolic 2000 panelon 08-31-2022 Albumin [Mass/Vol] 3.8 g/dL Low 3.9-4.9 [facility] Comment on above: Order Comment: Specherbie tay Type: BLOOD SPECIMENOrdering Facility: [facility] Address: [address] [place], [place] [address] Performed By: #### 2 4323-8, , 2776-02 ####[facility] LABCLIA [id number] [place] [address] [place] ALP [Catalytic activity/Vol] 116 U/L High 38-113 [facility] Comment on above: Order Comment: Speci men Type: BLOOD SPECIMENOrdering Facility: [facility] Address: [address] [place] [address] Performed By: #### 2 4323-8, , 2776-02 ####[facility] LABCLIA [id number] [place] [id number] [place] ALT [Catalytic activity/Vol] 23 U/L Normal 10-54 [facility] Comment on above: Order Comment: Speci men Type: BLOOD SPECIMENOrdering Facility: [facility] Address: [address] Performed By: #### 2 4323-8, , 2776-02 ####[facility] LABCLIA [id number] [place] [address] [place] Anion gap [Moles/Vol] 9 mmol/L Normal 9-18 [facility] Comment on above: Order Comment: Speci men Type: BLOOD SPECIMENOrdering Facility: [facility] Address: [address] Performed By: #### 2 4323-8, , 2776-02 ####[facility] LABCLIA [id number] [place] [address] [place] AST [Catalytic activity/Vol] 19 U/L Normal 14-40 [facility] Comment on above: Order Comment: Speci men Type: BLOOD SPECIMENOrdering Facility: [facility] Address: [address] Performed By: #### 2 4323-8, , 2776-02 ####[facility] LABCLIA [id number] [place] [address] [place] Bilirubin [Mass/Vol] 0.3 mg/dL Normal 0.2-1.3 [facility] Comment on above: Order Comment: Speci men Type: BLOOD SPECIMENOrdering Facility: [facility] Address: [address] Performed By: #### 2 4323-8, , 2776-02 ####[facility] LABCLIA [id number] [place] [id number] [place] Calcium [Mass/Vol] 9.1 mg/dL Normal 8.5-10.2 [facility] Comment on above: Order Comment: Speci men Type: BLOOD SPECIMENOrdering Facility: [facility] Address: [address] [place] [address] Performed By: #### 2 4323-8, , 2776-02 ####[facility] LABCLIA [id number] [place] [address] [place] Chloride [Moles/Vol] 105 mmol/L Normal 97-105 [facility] Comment on above: Order Comment: Speci men Type: BLOOD SPECIMENOrdering Facility: [facility] Address: [address] [place] [address] Performed By: #### 2 4323-8, , 2776-02 ####[facility] LABCLIA [id number] [place] [address] [place] CO2 [Moles/Vol] 25 mmol/L Normal 22-30 [facility] Comment on above: Order Comment: Speci men Type: BLOOD SPECIMENOrdering Facility: [facility] Address: [address] [place] [address] Performed By: #### 2 4323-8, , 2776-02 ####[facility] LABCLIA [id number] [place] [address] [place] Creatinine [Mass/Vol] 0.88 mg/dL Normal 0.73-1.22 [facility] Comment on above: Order Comment: Speci men Type: BLOOD SPECIMENOrdering Facility: [facility] Address: [address] [place] [address] Performed By: #### 2 4323-8, , 2776-02 ####[facility] LABCLIA [id number] [place] [address] [place] ESTIMATED GLOMERULAR FILTRATION RATE 89 mL/min/1.73m??? Normal >=60 [facility] Comment on above: Order Comment: Speci men Type: BLOOD SPECIMENOrdering Facility: [facility] Address: [address] [place] [address] Result Comment: Mariaelena mated Glomerular Filtration Rate [...] 2 4323-8, , 2776-02 ####[facility]IA [id number] [place] [id number] [place] Glucose [Mass/Vol] 114 mg/dL High 74-99 [facility] Comment on above: Order Comment: Speci men Type: BLOOD SPECIMENOrdering Facility: [facility] Address: [address] [place] [address] Result Comment: The [place] Diabetes [employer] (ADA) provides guidance for cutoff [...] Standards of Medical Care in Diabetes 2016, [place] [employer]. Diabetes Care. 2016.39(Suppl 1). Performed By: #### 2 4323-8, , 2776-02 ####[facility] [id number] [address] [address] [place] Potassium [Moles/Vol] 4.2 mmol/L Normal 3.7-5.1 [facility] Comment on above: Order Comment: Speci men Type: BLOOD SPECIMENOrdering Facility: [facility] Address: [address] [place] [id number] Performed By: #### 2 4323-8, 47847-1, 2776-02 ####[facility] LABCLIA [id number] [address] [address] [place] Protein [Mass/Vol] 6.1 g/dL Low 6.3-8.0 [facility] Comment on above: Order Comment: Speci men Type: BLOOD SPECIMENOrdering Facility: [facility] Address: [address] [place] [id number] Performed By: #### 2 4323-8, , 2776-02 ####[facility] LABCLIA [id number] [place] [address] [place] Sodium [Moles/Vol] 139 mmol/L Normal 136-144 [facility] Comment on above: Order Comment: Speci men Type: BLOOD SPECIMENOrdering Facility: [facility] Address: [address] [place], [place] [phone] Performed By: #### 2 4323-8, , 2776-02 ####[facility] LABCLIA [id number] [place] [address] [place] Urea nitrogen [Mass/Vol] 21 mg/dL Normal 9-24 [facility] Comment on above: Order Comment: Speci men Type: BLOOD SPECIMENOrdering Facility: [facility] Address: [address] [place] [address] Performed By: #### 2 4323-8, , 2776-02 ####[facility] LABCLIA [id number] [place] [id number] [place] Magnesium SerPl-mCncon 08-31 Magnesium [Mass/Vol] 2.2 mg/dL Normal 1.7-2.3 [facility] Comment on above: Order Comment: Speci men Type: BLOOD SPECIMENOrdering Facility: [facility] Address: [address] [place] [address] Performed By: #### 2 4323-8, 07048-2, 2777-1 ####[facility] LABCLIA [id number] [place] [address] [place] PT panel Coag (PPP)on 2022 INR Coag (PPP) [Relative time] 1.0 {INR} Normal 0.9-1.3 [facility] Comment on above: Order Comment: Speci men Type: BLOOD SPECIMENOrdering Facility: [facility] Address: [address] [place] [address] Result Comment: Mago min K Antagonist (VKA) Therapeutic Range: INR 2 to 3 (Target INR of 2.5) Note: For patients treated with VKA drugs, such as warfarin, the [place] [employer] 2012 Guideline recommends [...] Chest 2012, 141:7S-47S Daniel RA, et al. [facility] 2017, 70: 252-289 Performed By: #### 3 4528-0, 09575-2 ####[facility] LABCLIA [id number] [place] [id number] [place] PT Coag (PPP) [Time] 10.4 s Normal 9.7-13.0 [facility] Comment on above: Order Comment: Speci men Type: BLOOD SPECIMENOrdering Facility: [facility] Address: [address] [place] [address] Performed By: #### 3 4528-0, 94415-1 ####[facility] LABCLIA [id number] [place] [id number] [facility] [place] Phosphate SerPl-mCncon 08-31 Phosphate [Mass/Vol] 3.6 mg/dL Normal 2.7-4.8 [facility] Comment on above: Order Comment: Speci men Type: BLOOD SPECIMENOrdering Facility: [facility] Address: [address] [place] [address] Performed By: #### 2 4323-8, 79969-1, 2777-1 ####[facility] LABCLIA [id number] [address] OF [facility] THERAPY NTon 08-31-2022 THERAPY NT HNO ID: [id number] Author: Jenna Duggan PT Service: Physical Therapy Author Type: Physical Therapist Type: Therapy (PT/OT/Speech/Resp) Filed: 08/31/2022 10:55 AM Note Text: Physical Therapy Treatment SERVICE DATE: 08/31/2022 SERVICE TIME: 0940 to 1003 ROOM: [place] [address] Recommended Discharge Disposition: Home Anticipated Discharge Needs: [...] HLD, DM, recent STEMI (08/20/2022), transferred from [facility] for gross hematuria. Currently with 18Fr 3-way catheter on CBI. 08/28/22: s/p cystoscopy, clot evacuation, cystolitholapaxy, TURP. Admitted to SICU postoperatively due to pressor requirements and risk of hyponatremia due to length of TURP. 22Fr [address] hernandez placed introp, on traction and CBI. Reason for Hospital Admission: Pt 77y/o male transferred from [facility] for gross hematuria secondary to recent STEMI [...] Diagnosis: Reduced mobility-other Interventions Provided: Gait Training (20692) Gait Training (99217) Treatment Minutes: 23 $ Gait Training (83012) Billed Units: 2 units Training AND Education Provided in: Benefits of In-Hospital Mobility, Bed Mobility, Energy Conservation, Equipment, Exercise Program, Expected Functional Level, Gait Pattern, Reduction of Deviations, Patient Exercise/Therapy Program Support Needs, Positioning, Precautions/Restrictions, Role of Physical Therapy, Standing Balance, (more content not included)... Normal [facility] aPTT PPPon 08-31-2022 aPTT Coag (PPP) [Time] 25.2 s Normal 23.0-32.4 [facility] Comment on above: Order Comment: Speci men Type: BLOOD SPECIMENOrdering Facility: [facility] Address: [address] [place] [address] Performed By: #### 3 4528-0, 20477-3 ####[facility] LABCLIA [id number] [place] [address] [place] CBC panel Auto (Bld)on 08-30 Erythrocyte distribution width (RBC) [Ratio] 12.7 % Normal 11.5-15.0 [facility] Comment on above: Order Comment: Speci men Type: BLOOD SPECIMENOrdering Facility: [facility] Address: [address] [place] [address] Performed By: #### 5 8410-2 ####[facility] LABCLIA [id number] [place] [address] [place] Hematocrit (Bld) [Volume fraction] 30.5 % Low 39.0-51.0 [facility] Comment on above: Order Comment: Speci men Type: BLOOD SPECIMENOrdering Facility: [facility] Address: [address] [place] [address] Performed By: #### 5 8410-2 ####[facility]IA [id number] [address] [place] Hemoglobin (Bld) [Mass/Vol] 10.4 g/dL Low 13.0-17.0 [facility] Comment on above: Order Comment: Speci men Type: BLOOD SPECIMENOrdering Facility: [facility] Address: [address] [place], [place] [address] Performed By: #### 5 8410-2 ####[facility]IA [id number] [address] [place] MCH (RBC) [Entitic mass] 31.7 pg Normal 26.0-34.0 [facility] Comment on above: Order Comment: Speci men Type: BLOOD SPECIMENOrdering Facility: [facility] Address: [address] [place], [place] [address] Performed By: #### 5 8410-2 ####[facility] [id number] [address] [place] MCHC (RBC) [Mass/Vol] 34.1 g/dL Normal 30.5-36.0 [facility] Comment on above: Order Comment: Speci men Type: BLOOD SPECIMENOrdering Facility: [facility] Address: [address] [place], [place] [address] Performed By: #### 5 8410-2 ####[facility]IA [id number] [address] [place] MCV (RBC) [Entitic vol] 93.0 fL Normal 80.0-100.0 [facility] Comment on above: Order Comment: Speci men Type: BLOOD SPECIMENOrdering Facility: [facility] Address: [address] [place], [place] [address] Performed By: #### 5 8410-2 ####[facility] LABIA [id number] [place] [address] [place] Nucleated RBC (Bld) [#/Vol] 10*3/uL Normal <0.01 [facility] Comment on above: Order Comment: Speci men Type: BLOOD SPECIMENOrdering Facility: [facility] Address: [address] [place] [address] Performed By: #### 5 8410-2 ####[facility] [id number] [place] [address] [place] Platelet mean volume (Bld) [Entitic vol] 11.6 fL Normal 9.0-12.7 [facility] Comment on above: Order Comment: Speci men Type: BLOOD SPECIMENOrdering Facility: [facility] Address: [address] [place] [address] Performed By: #### 5 8410-2 ####[facility]IA [id number] [place] [address] [place] Platelets (Bld) [#/Vol] 192 10*3/uL Normal 150-400 [facility] Comment on above: Order Comment: Speci men Type: BLOOD SPECIMENOrdering Facility: [facility] Address: [address] [place], [place] [address] Performed By: #### 5 8410-2 ####[facility]IA [id number] [place] [address] [place] RBC (Bld) [#/Vol] 3.28 10*6/uL Low 4.20-6.00 [facility] Comment on above: Order Comment: Speci men Type: BLOOD SPECIMENOrdering Facility: [facility] Address: [address] [place], [place] [address] Performed By: #### 5 8410-2 ####[facility] LABCLIA [id number] [place] [address] [place] WBC (Bld) [#/Vol] 15.06 10*3/uL High 3.70-11.00 [facility] Comment on above: Order Comment: Speci men Type: BLOOD SPECIMENOrdering Facility: [facility] Address: [address] [place] [address] Performed By: #### 5 8410-2 ####[facility] LABCLIA [id number] [place] [address] [place] Comprehensive metabolic 2000 panelon 08-30-2022 Albumin [Mass/Vol] 3.4 g/dL Low 3.9-4.9 [facility] Comment on above: Order Comment: Speci men Type: BLOOD SPECIMENOrdering Facility: [facility] Address: [address] [place] [address] Performed By: #### 2 4323-8, , 2776- ####[facility] LABCLIA [id number] [place] [address] [place] ALP [Catalytic activity/Vol] 105 U/L Normal 38-113 [facility] Comment on above: Order Comment: Speci men Type: BLOOD SPECIMENOrdering Facility: [facility] Address: [address] [place] [address] Performed By: #### 2 4323-8, , 2776-02 ####[facility] LABIA [id number] [address] [place] ALT [Catalytic activity/Vol] 18 U/L Normal 10-54 [facility] Comment on above: Order Comment: Speci men Type: BLOOD SPECIMENOrdering Facility: [facility] Address: [address] [place] [address] Performed By: #### 2 4323-8, , 2776-02 ####[facility] LABCLIA [id number] [place] [address] [place] Anion gap [Moles/Vol] 11 mmol/L Normal 9-18 [facility] Comment on above: Order Comment: Speci men Type: BLOOD SPECIMENOrdering Facility: [facility] Address: [address] [place] [address] Performed By: #### 2 4323-8, , 2776-02 ####[facility] LABCLIA [id number] [place] [address] [place] AST [Catalytic activity/Vol] 16 U/L Normal 14-40 [facility] Comment on above: Order Comment: Speci men Type: BLOOD SPECIMENOrdering Facility: [facility] Address: [address] [place] [address] Performed By: #### 2 4323-8, , 2776-02 ####[facility] LABCLIA [id number] [place] [address] [place] Bilirubin [Mass/Vol] 0.3 mg/dL Normal 0.2-1.3 [facility] Comment on above: Order Comment: Speci men Type: BLOOD SPECIMENOrdering Facility: [facility] Address: [address] [place] [address] Performed By: #### 2 4323-8, , 2776-02 ####[facility] LABCLIA [id number] [place] [address] [place] Calcium [Mass/Vol] 8.9 mg/dL Normal 8.5-10.2 [facility] Comment on above: Order Comment: Speci men Type: BLOOD SPECIMENOrdering Facility: [facility] Address: [address] Performed By: #### 2 4323-8, , 2776-02 ####[facility] LABCLIA [id number] [place] [address] [place] Chloride [Moles/Vol] 103 mmol/L Normal 97-105 [facility] Comment on above: Order Comment: Speci men Type: BLOOD SPECIMENOrdering Facility: [facility] Address: [address] [place] [address] Performed By: #### 2 4323-8, , 2776-02 ####[facility] LABCLIA [id number] [place] [address] [place] CO2 [Moles/Vol] 24 mmol/L Normal 22-30 [facility] Comment on above: Order Comment: Speci men Type: BLOOD SPECIMENOrdering Facility: [facility] Address: [address] [place] [address] Performed By: #### 2 4323-8, , 2776-02 ####[facility] LABCLIA [id number] [place] [address] [place] Creatinine [Mass/Vol] 0.77 mg/dL Normal 0.73-1.22 [facility] Comment on above: Order Comment: Speci men Type: BLOOD SPECIMENOrdering Facility: [facility] Address: [address] [place] [address] Performed By: #### 2 4323-8, , 2776-02 ####[facility] LABCLIA [id number] [address] [place] ESTIMATED GLOMERULAR FILTRATION RATE 92 mL/min/1.73m??? Normal >=60 [facility] Comment on above: Order Comment: Speci men Type: BLOOD SPECIMENOrdering Facility: [facility] Address: [address] [place] [address] Result Comment: Mariaelena mated Glomerular Filtration Rate [...] actual GFR. Performed By: #### 2 4323-8, 48456-7, 2776-02 ####[facility] LABCLIA [id number] [place] [address] [place] Glucose [Mass/Vol] 124 mg/dL High 74-99 [facility] Comment on above: Order Comment: Speci men Type: BLOOD SPECIMENOrdering Facility: [facility] Address: [address] [place] [address] Result Comment: The [place] [employer] (ADA) provides guidance for cutoff [...] Standards of Medical Care in Diabetes 2016, [place] [employer]. Diabetes Care. 2016.39(Suppl 1). Performed By: #### 2 4323-8, 65189-9, 2776- ####[facility] LABIA [id number] [place] [address] [place] Potassium [Moles/Vol] 3.9 mmol/L Normal 3.7-5.1 [facility] Comment on above: Order Comment: Speci men Type: BLOOD SPECIMENOrdering Facility: [facility] Address: [address] [place] [address] Performed By: #### 2 4323-8, , 27708-18 ####[facility] LABIA [id number] [place] [address] [place] Protein [Mass/Vol] 6.2 g/dL Low 6.3-8.0 [facility] Comment on above: Order Comment: Speci men Type: BLOOD SPECIMENOrdering Facility: [facility] Address: [address] [place] [address] Performed By: #### 2 4323-8, , 2776-02 ####[facility] [id number] [place] [id number] [place] Sodium [Moles/Vol] 138 mmol/L Normal 136-144 [facility] Comment on above: Order Comment: Speci men Type: BLOOD SPECIMENOrdering Facility: [facility] Address: [address] [place] [address] Performed By: #### 2 4323-8, , 2776-02 ####[facility] [id number] [place] [address] [place] Urea nitrogen [Mass/Vol] 22 mg/dL Normal 9-24 [facility] Comment on above: Order Comment: Speci men Type: BLOOD SPECIMENOrdering Facility: [facility] Address: [address] [place] [address] Performed By: #### 2 4323-8, , 2776-02 ####[facility] [id number] [place] [id number] [place] Magnesium SerPl-mCncon 08-30 Magnesium [Mass/Vol] 2.2 mg/dL Normal 1.7-2.3 [facility] Comment on above: Order Comment: Speci men Type: BLOOD SPECIMENOrdering Facility: [facility] Address: [address] [place] [address] Performed By: #### 2 4323-8, , 2776-02 ####[facility] [id number] [place] [id number] [place] PT panel Coag (PPP)on 2022 INR Coag (PPP) [Relative time] 1.1 {INR} Normal 0.9-1.3 [facility] Comment on above: Order Comment: Speci men Type: BLOOD SPECIMENOrdering Facility: [facility] Address: [address] [place], [place] [address] Result Comment: Mago min K Antagonist (VKA) Therapeutic Range: INR 2 to 3 (Target INR of 2.5) Note: For patients treated with VKA drugs, such as warfarin, the [place] [employer] 2012 Guideline recommends [...] Chest 2012, 141:7S-47S Daniel RA, et al. [facility] 2017, 70: 252-289 Performed By: #### 3 4528-0, 33013-2 ####[facility] LABCLIA [id number] [place] [address] [place] PT Coag (PPP) [Time] 10.9 s Normal 9.7-13.0 [facility] Comment on above: Order Comment: Speci men Type: BLOOD SPECIMENOrdering Facility: [facility] Address: [address] [place] [address] Performed By: #### 3 4528-0, 35144-2 ####[facility] [id number] [place] [id number] [place] Phosphate SerPl-mCncon 08-30 Phosphate [Mass/Vol] 3.2 mg/dL Normal 2.7-4.8 [facility] Comment on above: Order Comment: Speci men Type: BLOOD SPECIMENOrdering Facility: [facility] Address: [address] [place] [address] Performed By: #### 2 4323-8, 72972-4, 2777-1 ####[facility] LABCLIA [id number] [place] [id number] [place] THERAPY NTon 08-30-2022 THERAPY NT HNO ID: [id number] Author: Jenna Duggan, PT Service: Physical Therapy Author Type: Physical Therapist Type: Therapy (PT/OT/Speech/Resp) Filed: 08/30/2022 3:12 PM Note Text: Physical Therapy Treatment SERVICE DATE: 08/30/2022 SERVICE TIME: 1337 to 1400 ROOM: [place] [address] Recommended Discharge Disposition: Home Anticipated Discharge Needs: [...] HLD, DM, recent STEMI (08/20/2022), transferred from [facility] for gross hematuria. Currently with 18Fr 3-way catheter on CBI. 08/28/22: s/p cystoscopy, clot evacuation, cystolitholapaxy, TURP. Admitted to SICU postoperatively due to pressor requirements and risk of hyponatremia due to length of TURP. 22Fr [address] hernandez placed introp, on traction and CBI. Reason for Hospital Admission: Pt 77y/o male transferred from [facility] for gross hematuria secondary to recent STEMI [...] General Deviations/Observations: Diana decreased, Flexed trunk posture [facility]: 8: Walk 250 feet or more [...] Diagnosis: Reduced mobility-other Interventions Provided: Therapeutic Activity (96750), Gait Training (83779) Therapeutic Activity (23329) Treatment Minutes: 8 $ Therapeutic Activity (05411) Billed Units: 1 unit Gait Training (98290) Treatment Minutes: 15 $ Gait Training (54826) Billed Units: 1 unit Training AND Education Provided in: Benefits of In-Hospital Mobility, Bed Mobility, Energy Conservation, Equipment, Exercise Program, Expected Functional Level, Gait Pattern, Reduction of Deviations, Patient Exercise/Therapy Program Support Needs, Positioning, Precautions/Restrictions, Role of Physical Therapy, Standing Balance, Treatment Protocol, Transfers The Followin (more content not included)... Normal [facility] TYPE + SCREENon 08-30-2022 ABO O Normal [facility] Comment on above: Order Comment: Speci men Type: BLOOD SPECIMENOrdering Facility: [facility] Address: [address] [place] [address] Performed By: #### T SCR ####[facility] BANKCLIA [id number] [address] HISTORICAL AB SCR STATUS Negative Normal [facility] Comment on above: Order Comment: Speci men Type: BLOOD SPECIMENOrdering Facility: [facility] Address: [address] [place] [address] Performed By: #### T SCR ####[facility] BLOOD BANKCLIA [id number] [address] [place] Rh Nom (Bld) Positive Normal [facility] Comment on above: Order Comment: Speci men Type: BLOOD SPECIMENOrdering Facility: [facility] Address: [address] [place] [address] Performed By: #### T SCR ####[facility] BLOOD BANKCLIA [id number] [address] TYPE AND SCREEN EXPIRATION 09/02/2022 23:59 Normal [facility] Comment on above: Order Comment: Speci men Type: BLOOD SPECIMENOrdering Facility: [facility] Address: [address] [place] [address] Performed By: #### T SCR ####[facility] BLOOD BANKCLIA [id number] [address] [place] aPTT PPPon 08-30-2022 aPTT Coag (PPP) [Time] 26.5 s Normal 23.0-32.4 [facility] Comment on above: Order Comment: Speci men Type: BLOOD SPECIMENOrdering Facility: [facility] Address: [address] [place] [address] Performed By: #### 3 4528-0, 95285-6 ####[facility] [id number] [address] [place] CBC panel Auto (Bld)on 08-29 Erythrocyte distribution width (RBC) [Ratio] 12.5 % Normal 11.5-15.0 [facility] Comment on above: Order Comment: Speci men Type: BLOOD SPECIMENOrdering Facility: [facility] Address: [address] [place] [address] Performed By: #### 5 8410-2 ####[facility] [id number] [address] [place] Hematocrit (Bld) [Volume fraction] 30.7 % Low 39.0-51.0 [facility] Comment on above: Order Comment: Speci men Type: BLOOD SPECIMENOrdering Facility: [facility] Address: [address] [place] [address] Performed By: #### 5 8410-2 ####[facility] [id number] [address] [place] Hemoglobin (Bld) [Mass/Vol] 10.6 g/dL Low 13.0-17.0 [facility] Comment on above: Order Comment: Speci men Type: BLOOD SPECIMENOrdering Facility: [facility] Address: [address] [place] [address] Performed By: #### 5 8410-2 ####[facility] [id number] [address] [place] MCH (RBC) [Entitic mass] 32.0 pg Normal 26.0-34.0 [facility] Comment on above: Order Comment: Speci men Type: BLOOD SPECIMENOrdering Facility: [facility] Address: [address] [place] [address] Performed By: #### 5 8410-2 ####[facility] [id number] [address] MCHC (RBC) [Mass/Vol] 34.5 g/dL Normal 30.5-36.0 [facility] Comment on above: Order Comment: Speci men Type: BLOOD SPECIMENOrdering Facility: [facility] Address: [address] [place], [place] [address] Performed By: #### 5 8410-2 ####[facility] [id number] [address] [place] MCV (RBC) [Entitic vol] 92.7 fL Normal 80.0-100.0 [facility] Comment on above: Order Comment: Speci men Type: BLOOD SPECIMENOrdering Facility: [facility] Address: [address] [place], [place] [address] Performed By: #### 5 8410-2 ####[facility] [id number] [address] [place] Nucleated RBC (Bld) [#/Vol] 10*3/uL Normal <0.01 [facility] Comment on above: Order Comment: Speci men Type: BLOOD SPECIMENOrdering Facility: [facility] Address: [address] [place] [id number] Performed By: #### 5 8410-2 ####[facility] [id number] [address] [place] Platelet mean volume (Bld) [Entitic vol] 11.6 fL Normal 9.0-12.7 [facility] Comment on above: Order Comment: Speci men Type: BLOOD SPECIMENOrdering Facility: [facility] Address: [address] [place], [place] [address] Performed By: #### 5 8410-2 ####[facility] [id number] [place] [address] [place] Platelets (Bld) [#/Vol] 159 10*3/uL Normal 150-400 [facility] Comment on above: Order Comment: Speci men Type: BLOOD SPECIMENOrdering Facility: [facility] Address: [address] [place] [address] Performed By: #### 5 8410-2 ####[facility] LABCLIA [id number] [place] [address] [place] RBC (Bld) [#/Vol] 3.31 10*6/uL Low 4.20-6.00 [facility] Comment on above: Order Comment: Speci men Type: BLOOD SPECIMENOrdering Facility: [facility] Address: [address] [place] [address] Performed By: #### 5 8410-2 ####[facility] LABCLIA [id number] [place] [address] [place] WBC (Bld) [#/Vol] 13.57 10*3/uL High 3.70-11.00 [facility] Comment on above: Order Comment: Speci men Type: BLOOD SPECIMENOrdering Facility: [facility] Address: [address] [place], [place] [address] Performed By: #### 5 8410-2 ####[facility] LABCLIA [id number] [place] [address] [place] Erythrocyte distribution width (RBC) [Ratio] 12.5 % Normal 11.5-15.0 [facility] Comment on above: Order Comment: Speci men Type: BLOOD SPECIMENOrdering Facility: [facility] Address: [address] [place], [place] [address] Performed By: #### 5 8410-2 ####[facility] LABCLIA [id number] [place] [address] [place] Hematocrit (Bld) [Volume fraction] 25.7 % Low 39.0-51.0 [facility] Comment on above: Order Comment: Speci men Type: BLOOD SPECIMENOrdering Facility: [facility] Address: [address] [place] [address] Performed By: #### 5 8410-2 ####[facility] LABCL[facility] [id number] [place] [address] [place] Hemoglobin (Bld) [Mass/Vol] 9.1 g/dL Low 13.0-17.0 [facility] Comment on above: Order Comment: Speci men Type: BLOOD SPECIMENOrdering Facility: [facility] Address: [address] [place] [address] Performed By: #### 5 8410-2 ####[facility] [id number] [address] [place] MCH (RBC) [Entitic mass] 32.4 pg Normal 26.0-34.0 [facility] Comment on above: Order Comment: Speci men Type: BLOOD SPECIMENOrdering Facility: [facility] Address: [address] [place] [address] Performed By: #### 5 8410-2 ####[facility] [id number] [address] [place] MCHC (RBC) [Mass/Vol] 35.4 g/dL Normal 30.5-36.0 [facility] Comment on above: Order Comment: Speci men Type: BLOOD SPECIMENOrdering Facility: [facility] Address: [address] Performed By: #### 5 8410-2 ####[facility] [id number] [address] [place] MCV (RBC) [Entitic vol] 91.5 fL Normal 80.0-100.0 [facility] Comment on above: Order Comment: Speci men Type: BLOOD SPECIMENOrdering Facility: [facility] Address: [address] Performed By: #### 5 8410-2 ####[facility] [id number] [place] [address] [place] Nucleated RBC (Bld) [#/Vol] 10*3/uL Normal <0.01 [facility] Comment on above: Order Comment: Speci men Type: BLOOD SPECIMENOrdering Facility: [facility] Address: [address] [place] [address] Performed By: #### 5 8410-2 ####[facility] [id number] [place] [address] [place] [facility] [place] Platelet mean volume (Bld) [Entitic vol] 11.1 fL Normal 9.0-12.7 [facility] Comment on above: Order Comment: Speci men Type: BLOOD SPECIMENOrdering Facility: [facility] Address: [address] [place] [address] Performed By: #### 5 8410-2 ####[facility] [id number] [place] [address] [place] Platelets (Bld) [#/Vol] 138 10*3/uL Low 150-400 [facility] Comment on above: Order Comment: Speci men Type: BLOOD SPECIMENOrdering Facility: [facility] Address: [address] [place] [address] Result Comment: No c lot detected.Results checked and verified. Performed By: #### 5 8410-2 ####[facility] [id number] [place] [address] [place] RBC (Bld) [#/Vol] 2.81 10*6/uL Low 4.20-6.00 [facility] Comment on above: Order Comment: Speci men Type: BLOOD SPECIMENOrdering Facility: [facility] Address: [address] [place] [address] Performed By: #### 5 8410-2 ####[facility] [id number] [place] [address] [place] WBC (Bld) [#/Vol] 11.86 10*3/uL High 3.70-11.00 [facility] Comment on above: Order Comment: Speci men Type: BLOOD SPECIMENOrdering Facility: [facility] Address: [address] [place] [address] Performed By: #### 5 8410-2 ####[facility] [id number] [address] [place] Sea 08-29-2022 CNPN Telephone (ANGEL) -- OLAF BRIONES ([id number]) 1945 M Date Time Provider Department 08/29/22 [...] Hematuria [R31.9] 08/27/2022 Coronary artery disease involving o[place]inkie hinton*08/27/2022 Adverse reaction to antiplatelet agent [T45.7X5*08/27/2022 Myocardial infarction (HCC) [I21.9] 08/27/2022 Primary hypertension [I10] 08/27/2022 Type 2 diabetes mellitus without complication, *08/27/2022 Leukocytosis [D72.829] 08/27/2022 Malnutrition of mild degree (HCC) [E44.1] 08/29/2022 Encounter Status:Closed by DAVID ANDREWS on 08/29/22 Normal [facility] CONSULT PROGon 08-29-2022 CONSULT PROG HNO ID: [id number] Author: Rodriguez Miller APRN.SERVER ENGINEER Service: Cardiovascular Medicine Author Type: Nurse Practitioner Type: Consult Progress Note Filed: 08/29/2022 11:18 AM Note Text: [facility] CONSULT PROGRESS NOTE (Template ID [id number]) CONSULTING SERVICE: Cardiology: Consult Team PRIMARY SERVICE: [...] 08/29/2022 0700 Gross per 24 hour Intake 54491.5 ml Output 75148 ml Net 5853.5 ml TELEMETRY: SR IMAGING: [...] echocardiographic exam for comparison. Stent card from [facility] from 08/20/2022 DATA: Laboratory: Recent Labs 08/29/2232208/29/2224108/28/228 WBC 13.57* 11.86* 16.02* HB 10.6* 9.1* 12.1* HCT 30.7* 25.7* 35.7* PLT 159 138* 179 NA 136 137 139 K 4.1 4.0 4.2 CHLOR 102 103 105 CO2 22 20* 24 BUN 14 12 14 CREAT 0.69* 0.64* 0.76 GLUC 202* 186* 147* Recent Labs 08/29/22 03208/29/22 0242 08/27/22 0710 INR 1.0 1.1 1.0 ASSESSMENT / RECOMMENDATIONS / PLAN Olaf Briones is a 77M with a past medical hx of STEMI s/p JUHI to prox RCA 08/20/22 (on ASA and Brilinta), CAD with 50-70% mid to distal LAD disease, HTN, HLD, DM, nephrolithiasis s/p ESWL (2001) and TURP (2007) who presented to [facility] (more content not included)... Normal [facility] Comprehensive metabolic 2000 panelon 08-29-2022 Albumin [Mass/Vol] 4.2 g/dL Normal 3.9-4.9 [facility] Comment on above: Order Comment: Speci men Type: BLOOD SPECIMENOrdering Facility: [facility] Address: [address] [place] [address] Performed By: #### 2 4323-8 ####[facility] LABCLIA [id number] [place] [address] [place] ALP [Catalytic activity/Vol] 116 U/L High 38-113 [facility] Comment on above: Order Comment: Speci men Type: BLOOD SPECIMENOrdering Facility: [facility] Address: [address] [place] [address] Performed By: #### 2 4323-8 ####[facility] LABCLIA [id number] [address] STATES OF [facility] ALT [Catalytic activity/Vol] 20 U/L Normal 10-54 [facility] Comment on above: Order Comment: Speci men Type: BLOOD SPECIMENOrdering Facility: [facility] Address: [address] Performed By: #### 2 4323-8 ####[facility] LABCLIA [id number] [place] [address] [place] Anion gap [Moles/Vol] 13 mmol/L Normal 9-18 [facility] Comment on above: Order Comment: Speci men Type: BLOOD SPECIMENOrdering Facility: [facility] Address: [address] [place] [address] Performed By: #### 2 4323-8 ####[facility] LABCLIA [id number] [place] [address] [place] AST [Catalytic activity/Vol] 19 U/L Normal 14-40 [facility] Comment on above: Order Comment: Speci men Type: BLOOD SPECIMENOrdering Facility: [facility] Address: [address] [place] [address] Performed By: #### 2 4323-8 ####[facility] LABCL[facility] [id number] [place] [address] [place] Bilirubin [Mass/Vol] 0.4 mg/dL Normal 0.2-1.3 [facility] Comment on above: Order Comment: Speci men Type: BLOOD SPECIMENOrdering Facility: [facility] Address: [address] [place], [place] [address] Performed By: #### 2 4323-8 ####[facility] LABCLIA [id number] [place] [address] [place] Calcium [Mass/Vol] 9.4 mg/dL Normal 8.5-10.2 [facility] Comment on above: Order Comment: Speci men Type: BLOOD SPECIMENOrdering Facility: [facility] Address: [address] [place], [place] [address] Performed By: #### 2 4323-8 ####[facility]CLIA [id number] [place] [address] [place] Chloride [Moles/Vol] 102 mmol/L Normal 97-105 [facility] Comment on above: Order Comment: Speci men Type: BLOOD SPECIMENOrdering Facility: [facility] Address: [address] [place], [place] [address] Performed By: #### 2 4323-8 ####[facility]CL[facility] [id number] [place] [address] [place] CO2 [Moles/Vol] 25 mmol/L Normal 22-30 [facility] Comment on above: Order Comment: Speci men Type: BLOOD SPECIMENOrdering Facility: [facility] Address: [address] [place] [id number] Performed By: #### 2 4323-8 ####[facility] [id number] [address] STATES OF [facility] Creatinine [Mass/Vol] 0.86 mg/dL Normal 0.73-1.22 [facility] Comment on above: Order Comment: Speci men Type: BLOOD SPECIMENOrdering Facility: [facility] Address: [address] [place] [address] Performed By: #### 2 4323-8 ####[facility] [id number] [address] OF [facility] ESTIMATED GLOMERULAR FILTRATION RATE 89 mL/min/1.73m??? Normal >=60 [facility] Comment on above: Order Comment: Speci men Type: BLOOD SPECIMENOrdering Facility: [facility] Address: [address] [place] [address] Result Comment: Mariaelena mated Glomerular Filtration Rate [...] GFR. Performed By: #### 2 4323-8 ####[facility] [id number] [place] [address] [place] Glucose [Mass/Vol] 166 mg/dL High 74-99 [facility] Comment on above: Order Comment: Speci men Type: BLOOD SPECIMENOrdering Facility: [facility] Address: [address] [place] [address] Result Comment: The [place] [employer] (ADA) provides guidance for cutoff [...] Standards of Medical Care in Diabetes 2016, [place] [employer]. Diabetes Care. 2016.39(Suppl 1). Performed By: #### 2 4323-8 ####[facility] LABCL[facility] [id number] [place] [address] [place] Potassium [Moles/Vol] 3.9 mmol/L Normal 3.7-5.1 [facility] Comment on above: Order Comment: Speci men Type: BLOOD SPECIMENOrdering Facility: [facility] Address: [address] [place] [address] Performed By: #### 2 4323-8 ####[facility] [id number] [place] [address] [place] Protein [Mass/Vol] 6.6 g/dL Normal 6.3-8.0 [facility] Comment on above: Order Comment: Speci men Type: BLOOD SPECIMENOrdering Facility: [facility] Address: [address] [place] [address] Performed By: #### 2 4323-8 ####[facility] [id number] [place] [address] [place] Sodium [Moles/Vol] 140 mmol/L Normal 136-144 [facility] Comment on above: Order Comment: Speci men Type: BLOOD SPECIMENOrdering Facility: [facility] Address: [address] [place] [address] Performed By: #### 2 4323-8 ####[facility] LABCL[facility] [id number] [place] [address] [place] Urea nitrogen [Mass/Vol] 21 mg/dL Normal 9-24 [facility] Comment on above: Order Comment: Speci men Type: BLOOD SPECIMENOrdering Facility: [facility] Address: [address] [place] [address] Performed By: #### 2 4323-8 ####[facility] [id number] [place] [address] [place] Albumin [Mass/Vol] 3.6 g/dL Low 3.9-4.9 [facility] Comment on above: Order Comment: Speci men Type: BLOOD SPECIMENOrdering Facility: [facility] Address: [address] [place] [address] Performed By: #### 2 4323-8 ####[facility]CL[facility] [id number] [place] [address] [place] ALP [Catalytic activity/Vol] 96 U/L Normal 38-113 [facility] Comment on above: Order Comment: Speci men Type: BLOOD SPECIMENOrdering Facility: [facility] Address: [address] [place], [place] [address] Performed By: #### 2 4323-8 ####[facility]CL[facility] [id number] [place] [address] [place] ALT [Catalytic activity/Vol] 18 U/L Normal 10-54 [facility] Comment on above: Order Comment: Speci men Type: BLOOD SPECIMENOrdering Facility: [facility] Address: [address] [place], [place] [address] Performed By: #### 2 4323-8 ####[facility] [id number] [place] [address] [place] Anion gap [Moles/Vol] 10 mmol/L Normal 9-18 [facility] Comment on above: Order Comment: Speci men Type: BLOOD SPECIMENOrdering Facility: [facility] Address: [address] [place], [place] [address] Performed By: #### 2 4323-8 ####[facility] [id number] [place] [address] [place] AST [Catalytic activity/Vol] 16 U/L Normal 14-40 [facility] Comment on above: Order Comment: Speci men Type: BLOOD SPECIMENOrdering Facility: [facility] Address: [address] [place] [address] Performed By: #### 2 4323-8 ####[facility] LABCLIA [id number] [place] [address] [place] Bilirubin [Mass/Vol] 0.5 mg/dL Normal 0.2-1.3 [facility] Comment on above: Order Comment: Speci men Type: BLOOD SPECIMENOrdering Facility: [facility] Address: [address] [place] [address] Performed By: #### 2 4323-8 ####[facility] LABCLIA [id number] [place] [address] [place] Calcium [Mass/Vol] 8.7 mg/dL Normal 8.5-10.2 [facility] Comment on above: Order Comment: Speci men Type: BLOOD SPECIMENOrdering Facility: [facility] Address: [address] [place] [address] Performed By: #### 2 4323-8 ####[facility] LABCLIA [id number] [place] [address] [place] Chloride [Moles/Vol] 105 mmol/L Normal 97-105 [facility] Comment on above: Order Comment: Speci men Type: BLOOD SPECIMENOrdering Facility: [facility] Address: [address] [place], [place] [address] Performed By: #### 2 4323-8 ####[facility] LABCLIA [id number] [place] [address] [place] CO2 [Moles/Vol] 24 mmol/L Normal 22-30 [facility] Comment on above: Order Comment: Speci men Type: BLOOD SPECIMENOrdering Facility: [facility] Address: [address] [address] Performed By: #### 2 4323-8 ####[facility] LABIA [id number] [address] STATES OF [facility] Creatinine [Mass/Vol] 0.78 mg/dL Normal 0.73-1.22 [facility] Comment on above: Order Comment: Speci men Type: BLOOD SPECIMENOrdering Facility: [facility] Address: [address] [address] Performed By: #### 2 4323-8 ####[facility] LABIA [id number] [address] [place] ESTIMATED GLOMERULAR FILTRATION RATE 92 mL/min/1.73m??? Normal >=60 [facility] Comment on above: Order Comment: Speci men Type: BLOOD SPECIMENOrdering Facility: [facility] Address: [address] [place] [address] Result Comment: Mariaelena mated Glomerular Filtration Rate [...] GFR. Performed By: #### 2 4323-8 ####[facility] LABIA [id number] [place] [address] [place] Glucose [Mass/Vol] 217 mg/dL High 74-99 [facility] Comment on above: Order Comment: Speci men Type: BLOOD SPECIMENOrdering Facility: [facility] Address: [address] [place] [address] Result Comment: The [place] Diabetes Association (ADA) provides guidance for cutoff [...] Standards of Medical Care in Diabetes 2016, [place] [employer]. Diabetes Care. 2016.39(Suppl 1). Performed By: #### 2 4323-8 ####[facility] LABCLIA [id number] [place] [address] [place] Potassium [Moles/Vol] 3.9 mmol/L Normal 3.7-5.1 [facility] Comment on above: Order Comment: Speci men Type: BLOOD SPECIMENOrdering Facility: [facility] Address: [address] [place] [address] Performed By: #### 2 4323-8 ####[facility] LABIA [id number] [place] [address] [place] Protein [Mass/Vol] 5.6 g/dL Low 6.3-8.0 [facility] Comment on above: Order Comment: Speci men Type: BLOOD SPECIMENOrdering Facility: [facility] Address: [address] [place] [address] Performed By: #### 2 4323-8 ####[facility] LABIA [id number] [place] [address] [place] Sodium [Moles/Vol] 139 mmol/L Normal 136-144 [facility] Comment on above: Order Comment: Speci men Type: BLOOD SPECIMENOrdering Facility: [facility] Address: [address] [place] [address] Performed By: #### 2 4323-8 ####[facility] LABIA [id number] [place] [address] [place] Urea nitrogen [Mass/Vol] 14 mg/dL Normal 9-24 [facility] Comment on above: Order Comment: Speci men Type: BLOOD SPECIMENOrdering Facility: [facility] Address: [address] [place], [place] [address] Performed By: #### 2 4323-8 ####[facility] LABCLIA [id number] [place] [address] [place] Albumin [Mass/Vol] 3.6 g/dL Low 3.9-4.9 [facility] Comment on above: Order Comment: Speci men Type: BLOOD SPECIMENOrdering Facility: [facility] Address: [address] [place], [place] [address] Performed By: #### 2 777-1, , ####[facility] LABCLIA [id number] [place] [address] [place] ALP [Catalytic activity/Vol] 98 U/L Normal 38-113 [facility] Comment on above: Order Comment: Speci men Type: BLOOD SPECIMENOrdering Facility: [facility] Address: [address] [place], [place] [address] Performed By: #### 2 777-1, , ####[facility] LABCLIA [id number] [place] [address] [place] ALT [Catalytic activity/Vol] 19 U/L Normal 10-54 [facility] Comment on above: Order Comment: Speci men Type: BLOOD SPECIMENOrdering Facility: [facility] Address: [address] [place] [address] Performed By: #### 2 777-1, , ####[facility] LABCLIA [id number] [place] [address] [place] Anion gap [Moles/Vol] 12 mmol/L Normal 9-18 [facility] Comment on above: Order Comment: Speci men Type: BLOOD SPECIMENOrdering Facility: [facility] Address: [address] [place] [address] Performed By: #### 2 777-1, 42200-1, ####[facility] LABCLIA [id number] [place] [address] [place] AST [Catalytic activity/Vol] 18 U/L Normal 14-40 [facility] Comment on above: Order Comment: Speci men Type: BLOOD SPECIMENOrdering Facility: [facility] Address: [address] [place], [place] [address] Performed By: #### 2 777-1, 82541-9, ####[facility] LABCLIA [id number] [place] [address] [place] Bilirubin [Mass/Vol] 0.7 mg/dL Normal 0.2-1.3 [facility] Comment on above: Order Comment: Speci men Type: BLOOD SPECIMENOrdering Facility: [facility] Address: [address] [place], [place] [address] Performed By: #### 2 777-1, 75829-5, ####[facility] LABCLIA [id number] [place] [address] [place] Calcium [Mass/Vol] 8.3 mg/dL Low 8.5-10.2 [facility] Comment on above: Order Comment: Speci men Type: BLOOD SPECIMENOrdering Facility: [facility] Address: [address] [place] [address] Performed By: #### 2 777-1, 03768-1, ####[facility] LABIA [id number] [place] [address] [place] Chloride [Moles/Vol] 102 mmol/L Normal 97-105 [facility] Comment on above: Order Comment: Speci men Type: BLOOD SPECIMENOrdering Facility: [facility] Address: [address] [place] [address] Performed By: #### 2 777-1, 73108-9, ####[facility] LABIA [id number] [place] [address] [place] CO2 [Moles/Vol] 22 mmol/L Normal 22-30 [facility] Comment on above: Order Comment: Speci men Type: BLOOD SPECIMENOrdering Facility: [facility] Address: [address] [place] [address] Performed By: #### 2 777-1, 44583-3, ####[facility] LABIA [id number] [place] [address] [place] Creatinine [Mass/Vol] 0.69 mg/dL Low 0.73-1.22 [facility] Comment on above: Order Comment: Speci men Type: BLOOD SPECIMENOrdering Facility: [facility] Address: [address] [place] [address] Performed By: #### 2 777-1, , ####[facility] LABIA [id number] [place] [address] [place] ESTIMATED GLOMERULAR FILTRATION RATE 95 mL/min/1.73m??? Normal >=60 [facility] Comment on above: Order Comment: Speci men Type: BLOOD SPECIMENOrdering Facility: [facility] Address: [address] [place] [address] Result Comment: Mariaelena mated Glomerular Filtration Rate [...] actual GFR. Performed By: #### 2 777-1, 41286-2, 58383-5 ####[facility] LABIA [id number] [place] [address] [place] Glucose [Mass/Vol] 202 mg/dL High 74-99 [facility] Comment on above: Order Comment: Speci men Type: BLOOD SPECIMENOrdering Facility: [facility] Address: [address] [place] [address] Result Comment: The [place] Diabetes Association (ADA) provides guidance for cutoff [...] Standards of Medical Care in Diabetes 2016, [place] [employer]. Diabetes Care. 2016.39(Suppl 1). Performed By: #### 2 777-1, , ####[facility] LABIA [id number] [place] [address] [place] Potassium [Moles/Vol] 4.1 mmol/L Normal 3.7-5.1 [facility] Comment on above: Order Comment: Speci men Type: BLOOD SPECIMENOrdering Facility: [facility] Address: [address] [place], [place] [address] Performed By: #### 2 777-1, , ####[facility] LABIA [id number] [place] [address] [place] Protein [Mass/Vol] 5.5 g/dL Low 6.3-8.0 [facility] Comment on above: Order Comment: Speci men Type: BLOOD SPECIMENOrdering Facility: [facility] Address: [address] [place], [place] [address] Performed By: #### 2 777-1, , ####[facility] LABCLIA [id number] [place] [address] [place] Sodium [Moles/Vol] 136 mmol/L Normal 136-144 [facility] Comment on above: Order Comment: Speci men Type: BLOOD SPECIMENOrdering Facility: [facility] Address: [address] [place] [address] Performed By: #### 2 777-1, , ####[facility] LABCLIA [id number] [place] [address] [place] Urea nitrogen [Mass/Vol] 14 mg/dL Normal 9-24 [facility] Comment on above: Order Comment: Speci men Type: BLOOD SPECIMENOrdering Facility: [facility] Address: [address] [place] [address] Performed By: #### 2 777-1, , ####[facility] LABCLIA [id number] [place] [address] [place] Albumin [Mass/Vol] 3.0 g/dL Low 3.9-4.9 [facility] Comment on above: Order Comment: Speci men Type: BLOOD SPECIMENOrdering Facility: [facility] Address: [address] [place] [address] Result Comment: Resu lt rechecked. Performed By: #### 1 9123-9, 27708-18, ####[facility] LABCLIA [id number] [address] [address] [place] ALP [Catalytic activity/Vol] 88 U/L Normal 38-113 [facility] Comment on above: Order Comment: Speci men Type: BLOOD SPECIMENOrdering Facility: [facility] Address: [address] [place], [place] [address] Performed By: #### 1 9123-9, 277-, ####[facility] LABCLIA [id number] [place] [address] [place] ALT [Catalytic activity/Vol] 15 U/L Normal 10-54 [facility] Comment on above: Order Comment: Speci men Type: BLOOD SPECIMENOrdering Facility: [facility] Address: [address] [place] [address] Performed By: #### 1 9123-9, 2777-1, 79188-1 ####[facility] LABCLIA [id number] [place] [address] [place] Anion gap [Moles/Vol] 14 mmol/L Normal 9-18 [facility] Comment on above: Order Comment: Speci men Type: BLOOD SPECIMENOrdering Facility: [facility] Address: [address] [place] [address] Performed By: #### 1 9123-9, 2777-, 74832-5 ####[facility] LABCLIA [id number] [address] [place] AST [Catalytic activity/Vol] 16 U/L Normal 14-40 [facility] Comment on above: Order Comment: Speci men Type: BLOOD SPECIMENOrdering Facility: [facility] Address: [address] [place] [address] Performed By: #### 1 9123-9, 2777-1, 53365-8 ####[facility] LABCLIA [id number] [address] [place] Bilirubin [Mass/Vol] 0.6 mg/dL Normal 0.2-1.3 [facility] Comment on above: Order Comment: Speci men Type: BLOOD SPECIMENOrdering Facility: [facility] Address: [address] [place] [address] Performed By: #### 1 9123-9, 2777-1, 65503-7 ####[facility] LABCLIA [id number] [id number] [address] [place] Calcium [Mass/Vol] 8.4 mg/dL Low 8.5-10.2 [facility] Comment on above: Order Comment: Speci men Type: BLOOD SPECIMENOrdering Facility: [facility] Address: [address] [place] [address] Performed By: #### 1 9123-9, 2777-1, 33849-8 ####[facility] LABCLIA [id number] [place] [address] [place] Chloride [Moles/Vol] 103 mmol/L Normal 97-105 [facility] Comment on above: Order Comment: Speci men Type: BLOOD SPECIMENOrdering Facility: [facility] Address: [address] [place] [address] Performed By: #### 1 9123-9, 27708-18, 45094-3 ####[facility] LABCLIA [id number] [place] [address] [place] CO2 [Moles/Vol] 20 mmol/L Low 22-30 [facility] Comment on above: Order Comment: Speci men Type: BLOOD SPECIMENOrdering Facility: [facility] Address: [address] [place] [address] Performed By: #### 1 9123-9, 27708-18, 17699-4 ####[facility] LABCLIA [id number] [place] [address] [place] Creatinine [Mass/Vol] 0.64 mg/dL Low 0.73-1.22 [facility] Comment on above: Order Comment: Speci men Type: BLOOD SPECIMENOrdering Facility: [facility] Address: [address] [place], [place] [address] Performed By: #### 1 9123-9, 277-, 09002-8 ####[facility] LABCLIA [id number] [facility] [place] [place] [address] [place] ESTIMATED GLOMERULAR FILTRATION RATE 98 mL/min/1.73m??? Normal >=60 [facility] Comment on above: Order Comment: Specherbie tay Type: BLOOD SPECIMENOrdering Facility: [facility] Address: [place] [address] Result Comment: Mariaelena mated Glomerular Filtration Rate [...] GFR. Performed By: #### 1 9123-9, 2777-1, 23438-3 ####[facility] LABIA [id number] [place] [address] [place] Glucose [Mass/Vol] 186 mg/dL High 74-99 [facility] Comment on above: Order Comment: Portia tay Type: BLOOD SPECIMENOrdering Facility: [facility] Address: [place] [address] Result Comment: The [place] Diabetes Association (ADA) provides guidance for cutoff [...] Standards of Medical Care in Diabetes 2016, [place] [employer]. Diabetes Care. 2016.39(Suppl 1). Performed By: #### 1 9123-9, 2777-1, 23452-0 ####[facility] LABIA [id number] [address] [address] [place] Potassium [Moles/Vol] 4.0 mmol/L Normal 3.7-5.1 [facility] Comment on above: Order Comment: Speci men Type: BLOOD SPECIMENOrdering Facility: [facility] Address: [address] [address] Performed By: #### 1 9123-9, 27708-18, ####[facility] LABCLIA [id number] [place] [address] [place] Protein [Mass/Vol] 5.1 g/dL Low 6.3-8.0 [facility] Comment on above: Order Comment: Speci men Type: BLOOD SPECIMENOrdering Facility: [facility] Address: [address] [address] Performed By: #### 1 9123-9, 27708-18, ####[facility] LABIA [id number] [place] [address] [place] Sodium [Moles/Vol] 137 mmol/L Normal 136-144 [facility] Comment on above: Order Comment: Speci men Type: BLOOD SPECIMENOrdering Facility: [facility] Address: [address] [place] [address] Performed By: #### 1 9123-9, 2776-02, ####[facility] LABIA [id number] [place] [address] [place] Urea nitrogen [Mass/Vol] 12 mg/dL Normal 9-24 [facility] Comment on above: Order Comment: Speci men Type: BLOOD SPECIMENOrdering Facility: [facility] Address: [address] Performed By: #### 1 9123-9, 2776-02, ####[facility] LABIA [id number] [place] [address] [place] ECG COMPLETEon 08-29-2022 ECG COMPLETE Ventricular Rate : 7 0 BPM Atrial Rate : 70 BPM P-R Interval : 186 ms QRS Duration : 102 ms Q-T Interval : 454 ms QTC Calculation(Bazett) : 490 ms Calculated P [place] : 44 degrees Calculated R [place] : -26 degrees Calculated T [place] : -27 degrees SINUS RHYTHM WITH PREMATURE ATRIAL COMPLEXES NONSPECIFIC ST ABNORMALITY ABNORMAL ECG Confirmed by ERICK STEWARD MD (65) on 08/31/2022 7:45:00 AM NAME : OLAF BRIONES PID : [id number] : 1945 Gender : Male Race : Unknown ORD : [id number] Procedure Date : Aug 29 2022 00:07:53 Edit Date : Aug 31 2022 07:45:03 Diagnosis: SINUS RHYTHM WITH PREMATURE ATRIAL COMPLEXES NONSPECIFIC ST ABNORMALITY ABNORMAL ECG Confirmed by ERICK STEWARD MD (65) on 08/31/2022 7:45:00 AM Test Reason : Post-OP Location : 154 : [facility]54- Overread By : ERICK STEWARD MD Edited By : ERICK STEWARD MD Referred By : , Acquired by : NAHOMI RINALDI [facility] Magnesium [Mass/Vol] 2.1 mg/dL Normal 1.7-2.3 [facility] Comment on above: Order Comment: Speci men Type: BLOOD SPECIMENOrdering Facility: [facility] Address: [address] [place] [address] Performed By: #### 2 777-1, 38215-0, 90123-8 ####[facility] [id number] [address] STATES OF [facility] Magnesium [Mass/Vol] 1.8 mg/dL Normal 1.7-2.3 [facility] Comment on above: Order Comment: Speci men Type: BLOOD SPECIMENOrdering Facility: [facility] Address: [address] [place] [address] Performed By: #### 1 9123-9, 2777-1, 24403-3 ####[facility] LABIA [id number] [place] [id number] [place] PT panel Coag (PPP)on 2022 INR Coag (PPP) [Relative time] 1.0 {INR} Normal 0.9-1.3 [facility] Comment on above: Order Comment: Portia tay Type: BLOOD SPECIMENOrdering Facility: [facility] Address: [address] [place] [address] Result Comment: Mago min K Antagonist (VKA) Therapeutic Range: INR 2 to 3 (Target INR of 2.5) Note: For patients treated with VKA drugs, such as warfarin, the [place] [employer] 2012 Guideline recommends [...] Chest 2012, 141:7S-47S Daniel RA, et al. [facility] 2017, 70: 252-289 Performed By: #### 3 4528-0, 47838-9 ####[facility] [id number] [place] [address] [place] PT Coag (PPP) [Time] 10.7 s Normal 9.7-13.0 [facility] Comment on above: Order Comment: Portia tay Type: BLOOD SPECIMENOrdering Facility: [facility] Address: [address] [place] [id number] Performed By: #### 3 4528-0, 33505-8 ####[facility] [id number] [place] [address] [place] INR Coag (PPP) [Relative time] 1.1 {INR} Normal 0.9-1.3 [facility] Comment on above: Order Comment: Portia tay Type: BLOOD SPECIMENOrdering Facility: [facility] Address: [place] [address] Result Comment: Mago min K Antagonist (VKA) Therapeutic Range: INR 2 to 3 (Target INR of 2.5) Note: For patients treated with VKA drugs, such as warfarin, the [place] [employer] 2012 Guideline recommends [...] Chest 2012, 141:7S-47S Daniel KENNEDY, et al. [facility] 2017, 70: 252-289 Performed By: #### 3 4528-0, 61415-8 ####[facility] LABCLIA [id number] [place] [address] [place] PT Coag (PPP) [Time] 11.2 s Normal 9.7-13.0 [facility] Comment on above: Order Comment: Speci men Type: BLOOD SPECIMENOrdering Facility: [facility] Address: [address] [place] [id number] Performed By: #### 3 4528-0, 94568-7 ####[facility] LABCLIA [id number] [place] [id number] [place] Phosphate SerPl-mCncon 08-29 Phosphate [Mass/Vol] 4.9 mg/dL High 2.7-4.8 [facility] Comment on above: Order Comment: Speci men Type: BLOOD SPECIMENOrdering Facility: [facility] Address: [address] [place] [phone] Performed By: #### 2 777-1, 68202-4, 45762-9 ####[facility] LABCLIA [id number] [facility] [id number] [place] [address] [place] Phosphate [Mass/Vol] 4.2 mg/dL Normal 2.7-4.8 [facility] Comment on above: Order Comment: Speci men Type: BLOOD SPECIMENOrdering Facility: [facility] Address: [address] [place] [address] Performed By: #### 1 9123-9, 2777-1, 15638-6 ####[facility]CL[facility] [id number] [facility] [place] [address] [place] THERAPY NTon 08-29-2022 THERAPY NT HNO ID: [id number] Author: Jenna Duggan, PT Service: Physical Therapy Author Type: Physical Therapist Type: Therapy (PT/OT/Speech/Resp) Filed: 08/29/2022 2:51 PM Note Text: Physical Therapy Evaluation SERVICE DATE: 08/29/2022 SERVICE TIME: 1403 to 1438 ROOM: [place] [address] Recommended Discharge Disposition: Home Anticipated Discharge Needs: [...] HLD, DM, recent STEMI (08/20/2022), transferred from [facility] for gross hematuria. Currently with 18Fr 3-way catheter on CBI. 08/28/22: s/p cystoscopy, clot evacuation, cystolitholapaxy, TURP. Admitted to SICU postoperatively due to pressor requirements and risk of hyponatremia due to length of TURP. 22Fr [address] hernandez placed introp, on traction and CBI. Reason for Hospital Admission: Pt 77y/o male transferred from [facility] for gross hematuria secondary to recent STEMI [...] Reduced mobility-other Interventions Provided: Evaluation, Therapeutic Activity (07724), Gait Training (11764) $ Evaluation-Moderate (42679) Billed Units: 1 unit Therapeutic Activity (53606) Treatment Minutes: 7 $ Therapeutic Activity (08112) Billed Units: 0 units Gait Training (98450) Treatment Minutes: 13 $ Gait Training (15334) Billed Units: 1 unit Training AND Education Provided in: Benefits of In-Hospital Mobility, Bed Mobility, Energy Conservation, Equipment, Exer (more content not included)... Normal [facility] THERAPY NT HNO ID: [id number] Author: BLAYNE Miles/L Service: Occupational Therapy Author Type: Occupational Therapist Type: Therapy (PT/OT/Speech/Resp) Filed: 08/29/2022 11:06 AM Note Text: Occupational Therapy Evaluation SERVICE DATE: 08/29/2022 SERVICE TIME: 50 to 0921 ROOM: [place] [address] Recommended Discharge Disposition: Home Anticipated Discharge Needs: [...] HLD, DM, recent STEMI (08/20/2022), transferred from [facility] for gross hematuria. Currently with 18Fr 3-way catheter on CBI. 08/28/22: s/p cystoscopy, clot evacuation, cystolitholapaxy, TURP. Admitted to SICU postoperatively due to pressor requirements and risk of hyponatremia due to length of TURP. 22Fr [address] hernandez placed introp, on traction and CBI. 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 Normal [facility] aPTT PPPon 08-29-2022 aPTT Coag (PPP) [Time] 21.0 s Low 23.0-32.4 [facility] Comment on above: Order Comment: Speci men Type: BLOOD SPECIMENOrdering Facility: [facility] Address: [address] [place] [address] Performed By: #### 3 4528-0, 26024-9 ####[facility] [id number] [address] aPTT Coag (PPP) [Time] 26.1 s Normal 23.0-32.4 [facility] Comment on above: Order Comment: Speci men Type: BLOOD SPECIMENOrdering Facility: [facility] Address: [address] [place] [address] Performed By: #### 3 4528-0, 09932-1 ####[facility] [id number] [address] [place] ANES POSTPROC EVALon 023 ANES POSTPROC EVAL HNO ID: [id number] Author: Michelle Day MD Service: ? Author Type: Anesthesiologist Type: Anesthesia Postprocedure Evaluation Filed: 08/28/2022 8:38 PM Note Text: POST ANESTHESIA EVALUATION NOTE : 1945 Procedure Summary Date: 08/28/22 Room / Location: [place] [address] [facility] Anesthesia Start: 1752 Anesthesia Stop: [...] August 28, 2022 TIME: 8:37 PM CSN: [id number] Normal [facility] ANES PRE-OPon 08-28-2022 ANES PRE-OP HNO ID: [id number] Author: Weston Avila MD Service: ? Author Type: Anesthesiologist Type: Anesthesia Preprocedure Evaluation Filed: 08/28/2022 6:10 PM Note Text: ANESTHESIOLOGY DAY OF SURGERY NOTE : 1945 Procedure Information Anesthesia Start Date/Time: 08/28/221752 Procedure: CYSTOURETHROSCOPY FULGURATION BLADDER (Bladder) Location: [place] [address] [facility] Surgeons: David Andrews MD Estimated body mass index is 25.23 kg/m? as calculated from the following: Height as of this encounter: 173 cm (5' 8.11 ). Weight as of this encounter: 75.5 kg (166 lb 7.2 oz). Most recent hematocrit and potassium results: Hematocrit 32.6 08/28/2022 Potassium 4.0 08/28/2022 Relevant Problems CARDIO (+) Coronary artery disease involving [place] coronary artery of [place] heart without angina pectoris (+) Myocardial infarction [...] and consent discussed: yes. Patient / Responsible Libertarian agrees to proceed: yes Patient / Surrogate [...] as nee (more content not included)... Normal [facility] ANES PREOPon 08-28-2022 ANES PREOP HNO ID: [id number] Author: Jaycee Bernard MD Service: Anesthesiology Author [...] Oral 68 16 95 % -- -- 07/10/23 2037 124/66 37 ?C (98.6 ?F) Oral [...] (166 lb 7.2 oz) REVIEW OF SYSTEMS: BELL ATTENDANT: no history of BELL ATTENDANT disease RESP: no history of pulmonary disease, no smoking history CARD: history of HTN on norvasc and coreg; and history of past CT s/p JUHI (08/20/22); currently no chest pain [...] done. L (more content not included)... Normal [facility] BRIEF OP NOTon 08-28-2022 BRIEF OP NOT HNO ID: [id number] Author: Gt Mcgowan MD Service: Urology Author Type: Resident Type: Brief Op Note Filed: 08/28/2022 7:50 PM Note Text: BRIEF OP NOTE LOG ID: [id number] Surgery/Procedure Date: 08/28/2022 Incision/Procedure Start Time: 6:17 PM Incision Close/Procedure End Time: Surgeon(s)/Proceduralist(s ) and Uniform Patrol Police Officer(s): Surgeon(s) and Role: * David Andrews MD [...] bladder stone Calculus CALCULI/CALCULUS CALCULI ANALYSIS David Anderws MD 08/28/2022 7:28 PM A : Tissue PROSTATE TISSUE (CHIPS) SURGICAL PATHOLOGY David Andrews MD 08/28/2022 6:54 PM B : #2 Tissue PROSTATE TISSUE (CHIPS) SURGICAL PATHOLOGY David Andrews MD 08/28/2022 6:55 PM Complications: None Pre-Op/Pre-Procedure Diagnosis: gross hematuria, clot retention Post-Op/Post-Procedure Diagnosis: same SIGNATURE: Gt Mcgowan MD PATIENT NAME: Olaf Briones DATE: August 28, 2022 TIME: 7:48 PM PAGER/CONTACT #: p [phone] Post-op Plan: To SICU Normal [facility] Basic metabolic 2000 panelon 08-28-2022 Anion gap [Moles/Vol] 9 mmol/L Normal 9-18 [facility] Comment on above: Order Comment: Speci men Type: BLOOD SPECIMENOrdering Facility: [facility] Address: [address] [place] [address] Performed By: #### 2 4321-2 ####[facility] [id number] [place] [address] [place] Calcium [Mass/Vol] 8.8 mg/dL Normal 8.5-10.2 [facility] Comment on above: Order Comment: Speci men Type: BLOOD SPECIMENOrdering Facility: [facility] Address: [address] [place] [address] Performed By: #### 2 4321-2 ####[facility] [id number] [place] [address] [place] Chloride [Moles/Vol] 108 mmol/L High 97-105 [facility] Comment on above: Order Comment: Speci men Type: BLOOD SPECIMENOrdering Facility: [facility] Address: [address] [place] [address] Performed By: #### 2 4321-2 ####[facility] [id number] [place] [address] [place] CO2 [Moles/Vol] 24 mmol/L Normal 22-30 [facility] Comment on above: Order Comment: Speci men Type: BLOOD SPECIMENOrdering Facility: [facility] Address: [address] [id number] Performed By: #### 2 4321-2 ####[facility] LAB[facility] [id number] [address] STATES OF [facility] Creatinine [Mass/Vol] 0.79 mg/dL Normal 0.73-1.22 [facility] Comment on above: Order Comment: Speci men Type: BLOOD SPECIMENOrdering Facility: [facility] Address: [address] [address] Performed By: #### 2 4321-2 ####[facility] [id number] [address] OF [facility] ESTIMATED GLOMERULAR FILTRATION RATE 91 mL/min/1.73m??? Normal >=60 [facility] Comment on above: Order Comment: Speci men Type: BLOOD SPECIMENOrdering Facility: [facility] Address: [address] [place] [address] Result Comment: Mariaelena mated Glomerular Filtration Rate [...] GFR. Performed By: #### 2 4321-2 ####[facility] [id number] [place] [address] [place] Glucose [Mass/Vol] 137 mg/dL High 74-99 [facility] Comment on above: Order Comment: Speci men Type: BLOOD SPECIMENOrdering Facility: [facility] Address: [address] [place] [address] Result Comment: The [place] Diabetes Association (ADA) provides guidance for cutoff [...] Standards of Medical Care in Diabetes 2016, [place] [employer]. Diabetes Care. 2016.39(Suppl 1). Performed By: #### 2 4321-2 ####[facility] [id number] [place] [address] [place] Potassium [Moles/Vol] 4.0 mmol/L Normal 3.7-5.1 [facility] Comment on above: Order Comment: Speci men Type: BLOOD SPECIMENOrdering Facility: [facility] Address: [address] [place] [address] Performed By: #### 2 4321-2 ####[facility] [id number] [place] [address] [place] Sodium [Moles/Vol] 141 mmol/L Normal 136-144 [facility] Comment on above: Order Comment: Speci men Type: BLOOD SPECIMENOrdering Facility: [facility] Address: [address] [place] [address] Performed By: #### 2 4321-2 ####[facility] [id number] [place] [address] [place] Urea nitrogen [Mass/Vol] 18 mg/dL Normal 9-24 [facility] Comment on above: Order Comment: Speci men Type: BLOOD SPECIMENOrdering Facility: [facility] Address: [address] [place] [address] Performed By: #### 2 4321-2 ####[facility] LAB[facility] [id number] [place] [address] [place] CALCULI ANALYSISon 3 Calculus analysis [Interp] Normal [facility] Comment on above: Order Comment: Speci men Type: CALCULUS SPECIMENOrdering Facility: [facility] Address: [address] [place] [address] Result Comment: This test was developed and its performance characteristics determined by [facility] [place] ([facility]). It has not been cleared or approved by the FDA. -[facility] is regulated under CLIA as qualified to perform high-complexity testing. This test is used for clinical purposes. It should not be regarded as investigational or for research. Performed By: #### C SA ####[facility] [id number] [address] [place] CALCULUS COLOR BROWN Normal [facility] Comment on above: Order Comment: Speci men Type: CALCULUS SPECIMENOrdering Facility: [facility] Address: [address] [place] [address] Performed By: #### C SA ####[facility] [id number] [address] OF [facility] CALCULUS COMPOSITION 1 50% Calcium Oxala te Monohydrate Normal [facility] Comment on above: Order Comment: Speci men Type: CALCULUS SPECIMENOrdering Facility: [facility] Address: [address] [place] [address] Performed By: #### C SA ####[facility] [id number] [address] [place] CALCULUS COMPOSITION 2 40% Calcium Oxala te Dihydrate Normal [facility] Comment on above: Order Comment: Speci men Type: CALCULUS SPECIMENOrdering Facility: [facility] Address: [address] [place] [address] Performed By: #### C SA ####[facility] [id number] [address] [place] CALCULUS COMPOSITION 3 10% Minor Components Normal [facility] Comment on above: Order Comment: Speci men Type: CALCULUS SPECIMENOrdering Facility: [facility] Address: [address] [place] [address] Performed By: #### C SA ####[facility] [id number] [address] STATES [place] CALCULUS SIZE AND WT 0.4 X 0.3 X 0.1 CM 0.0163 GRAMS Normal [facility] Comment on above: Order Comment: Speci men Type: CALCULUS SPECIMENOrdering Facility: [facility] Address: [address] [place] [address] Performed By: #### C SA ####[facility] [id number] [address] [place] CALCULUS TYPE Calculus, CALCULI/CALCULUS Normal [facility] Comment on above: Order Comment: Speci men Type: CALCULUS SPECIMENOrdering Facility: [facility] Address: [address] [place] [address] Performed By: #### C SA ####[facility] LABIA [id number] [place] [address] [place] CBC panel Auto (Bld)on 08-28 Erythrocyte distribution width (RBC) [Ratio] 12.7 % Normal 11.5-15.0 [facility] Comment on above: Order Comment: Speci men Type: BLOOD SPECIMENOrdering Facility: [facility] Address: [address] Performed By: #### 5 8410-2 ####[facility] [id number] [place] [address] [place] Hematocrit (Bld) [Volume fraction] 35.7 % Low 39.0-51.0 [facility] Comment on above: Order Comment: Speci men Type: BLOOD SPECIMENOrdering Facility: [facility] Address: [address] [place] [address] Performed By: #### 5 8410-2 ####[facility]CL[facility] [id number] [address] STATES OF [facility] Hemoglobin (Bld) [Mass/Vol] 12.1 g/dL Low 13.0-17.0 [facility] Comment on above: Order Comment: Speci men Type: BLOOD SPECIMENOrdering Facility: [facility] Address: [address] [place] [address] Performed By: #### 5 8410-2 ####[facility] [id number] [address] MCH (RBC) [Entitic mass] 31.8 pg Normal 26.0-34.0 [facility] Comment on above: Order Comment: Speci men Type: BLOOD SPECIMENOrdering Facility: [facility] Address: [address] [place] [address] Performed By: #### 5 8410-2 ####[facility] [id number] [address] MCHC (RBC) [Mass/Vol] 33.9 g/dL Normal 30.5-36.0 [facility] Comment on above: Order Comment: Speci men Type: BLOOD SPECIMENOrdering Facility: [facility] Address: [address] [place] [address] Performed By: #### 5 8410-2 ####[facility] LABIA [id number] [address] STATES OF [facility] MCV (RBC) [Entitic vol] 93.7 fL Normal 80.0-100.0 [facility] Comment on above: Order Comment: Speci men Type: BLOOD SPECIMENOrdering Facility: [facility] Address: [address] [place], [place] [address] Performed By: #### 5 8410-2 ####[facility] [id number] [address] [place] Nucleated RBC (Bld) [#/Vol] 10*3/uL Normal <0.01 [facility] Comment on above: Order Comment: Speci men Type: BLOOD SPECIMENOrdering Facility: [facility] Address: [address] [place], [place] [address] Performed By: #### 5 8410-2 ####[facility]CL[facility] [id number] [place] [address] [place] Platelet mean volume (Bld) [Entitic vol] 11.3 fL Normal 9.0-12.7 [facility] Comment on above: Order Comment: Speci men Type: BLOOD SPECIMENOrdering Facility: [facility] Address: [address] [place], [place] [address] Performed By: #### 5 8410-2 ####[facility] [id number] [place] [address] [place] Platelets (Bld) [#/Vol] 179 10*3/uL Normal 150-400 [facility] Comment on above: Order Comment: Speci men Type: BLOOD SPECIMENOrdering Facility: [facility] Address: [address] [place], [place] [address] Performed By: #### 5 8410-2 ####[facility]CL[facility] [id number] [place] [address] [place] RBC (Bld) [#/Vol] 3.81 10*6/uL Low 4.20-6.00 [facility] Comment on above: Order Comment: Speci men Type: BLOOD SPECIMENOrdering Facility: [facility] Address: [address] [place], [place] [address] Performed By: #### 5 8410-2 ####[facility]CL[facility] [id number] [place] [address] [place] WBC (Bld) [#/Vol] 16.02 10*3/uL High 3.70-11.00 [facility] Comment on above: Order Comment: Speci men Type: BLOOD SPECIMENOrdering Facility: [facility] Address: [address] Performed By: #### 5 8410-2 ####[facility] [id number] [address] [place] Erythrocyte distribution width (RBC) [Ratio] 12.8 % Normal 11.5-15.0 [facility] Comment on above: Order Comment: Speci men Type: BLOOD SPECIMENOrdering Facility: [facility] Address: [address] Performed By: #### 5 8410-2 ####[facility]CL[facility] [id number] [place] [address] [place] Hematocrit (Bld) [Volume fraction] 32.6 % Low 39.0-51.0 [facility] Comment on above: Order Comment: Speci men Type: BLOOD SPECIMENOrdering Facility: [facility] Address: [address] [place], [place] [address] Performed By: #### 5 8410-2 ####[facility] [id number] [place] [address] [place] Hemoglobin (Bld) [Mass/Vol] 11.1 g/dL Low 13.0-17.0 [facility] Comment on above: Order Comment: Speci men Type: BLOOD SPECIMENOrdering Facility: [facility] Address: [address] Performed By: #### 5 8410-2 ####[facility] [id number] [place] [address] [place] MCH (RBC) [Entitic mass] 31.6 pg Normal 26.0-34.0 [facility] Comment on above: Order Comment: Speci men Type: BLOOD SPECIMENOrdering Facility: [facility] Address: [address] [place], [place] [address] Performed By: #### 5 8410-2 ####[facility] [id number] [place] [address] [place] MCHC (RBC) [Mass/Vol] 34.0 g/dL Normal 30.5-36.0 [facility] Comment on above: Order Comment: Speci men Type: BLOOD SPECIMENOrdering Facility: [facility] Address: [address] [place] [address] Performed By: #### 5 8410-2 ####[facility] [id number] [place] [address] [place] MCV (RBC) [Entitic vol] 92.9 fL Normal 80.0-100.0 [facility] Comment on above: Order Comment: Speci men Type: BLOOD SPECIMENOrdering Facility: [facility] Address: [address] [place] [address] Performed By: #### 5 8410-2 ####[facility] [id number] [place] [address] [place] Nucleated RBC (Bld) [#/Vol] 10*3/uL Normal <0.01 [facility] Comment on above: Order Comment: Speci men Type: BLOOD SPECIMENOrdering Facility: [facility] Address: [address] [place], [place] [address] Performed By: #### 5 8410-2 ####[facility] LABIA [id number] [place] [address] [place] Platelet mean volume (Bld) [Entitic vol] 11.2 fL Normal 9.0-12.7 [facility] Comment on above: Order Comment: Speci men Type: BLOOD SPECIMENOrdering Facility: [facility] Address: [address] [place], [place] [address] Performed By: #### 5 8410-2 ####[facility] [id number] [place] [address] [place] Platelets (Bld) [#/Vol] 172 10*3/uL Normal 150-400 [facility] Comment on above: Order Comment: Speci men Type: BLOOD SPECIMENOrdering Facility: [facility] Address: [address] [place] [address] Performed By: #### 5 8410-2 ####[facility]CL[facility] [id number] [place] [address] [place] [facility] RBC (Bld) [#/Vol] 3.51 10*6/uL Low 4.20-6.00 [facility] Comment on above: Order Comment: Speci men Type: BLOOD SPECIMENOrdering Facility: [facility] Address: [address] [place] [address] Performed By: #### 5 8410-2 ####[facility]CL[facility] [id number] [place] [address] [place] WBC (Bld) [#/Vol] 11.53 10*3/uL High 3.70-11.00 [facility] Comment on above: Order Comment: Speci men Type: BLOOD SPECIMENOrdering Facility: [facility] Address: [address] [place] [address] Performed By: #### 5 8410-2 ####[facility] LABCL[facility] [id number] [address] STATES OF [facility] CONSULT PROGon 08-28-2022 CONSULT PROG HNO ID: [id number] Author: Uzma Bates MD Service: Cardiovascular Medicine [...] 1.3 mL INTRAVENOUS DIRECTED PRN PHYSICAL EXAM: 08/27/22203608/28/226 08/28/2252208/28/22926 BP: 124/66 98/56 116/57 129/70 Pulse: 71 [...] 08/28/2022 1045 Gross per 24 hour Intake 51972.5 ml Output 28390 ml Net -21228.5 ml TELEMETRY: DATA: Laboratory: Recent Labs 08/28/22 [...] (2000) and TURP (2006) who presented to [facility] ED 08/26/22 for development of gross hematuria with lower pelvic pain x2 days. He was found to have elevated WBC with + UA, and started on IV atbx. He was transferred to [facility] 08/27 for further management. He was [...] RCRI score is [address], making him a class II risk. This equates to a 6.0% 30-day risk of , CT, or cardiac arrest. Pt denies any cardiac complaints. Per Dr. Bates, no absolute contraindication to proceeding with urologic p (more content not included)... Normal [facility] Comprehensive metabolic 2000 panelon 08-28-2022 Albumin [Mass/Vol] 4.1 g/dL Normal 3.9-4.9 [facility] Comment on above: Order Comment: Speci men Type: BLOOD SPECIMENOrdering Facility: [facility] Address: [address] [address] Performed By: #### 1 9123-9, 77642-4, 2777- ####[facility] [id number] [place] [address] [place] ALP [Catalytic activity/Vol] 119 U/L High 38-113 [facility] Comment on above: Order Comment: Speci men Type: BLOOD SPECIMENOrdering Facility: [facility] Address: [address] [id number] Performed By: #### 1 9123-9, 49182-4, 2777- ####[facility] [id number] [address] [place] ALT [Catalytic activity/Vol] 23 U/L Normal 10-54 [facility] Comment on above: Order Comment: Speci men Type: BLOOD SPECIMENOrdering Facility: [facility] Address: [address] [address] Performed By: #### 1 9123-9, 09907-6, 2777- ####[facility] [id number] [place] [address] [place] Anion gap [Moles/Vol] 10 mmol/L Normal 9-18 [facility] Comment on above: Order Comment: Speci men Type: BLOOD SPECIMENOrdering Facility: [facility] Address: [address] [place] [address] Performed By: #### 1 9123-9, 09877-4, 277- ####[facility] [id number] [place] [address] [place] AST [Catalytic activity/Vol] 21 U/L Normal 14-40 [facility] Comment on above: Order Comment: Speci men Type: BLOOD SPECIMENOrdering Facility: [facility] Address: [address] [place] [address] Performed By: #### 1 9123-9, 93900-4, 27708-18 ####[facility] [id number] [place] [address] [place] Bilirubin [Mass/Vol] 1.1 mg/dL Normal 0.2-1.3 [facility] Comment on above: Order Comment: Speci men Type: BLOOD SPECIMENOrdering Facility: [facility] Address: [address] [place] [address] Performed By: #### 1 9123-9, 52169-4, 2777- ####[facility] [id number] [place] [address] [place] Calcium [Mass/Vol] 9.1 mg/dL Normal 8.5-10.2 [facility] Comment on above: Order Comment: Speci men Type: BLOOD SPECIMENOrdering Facility: [facility] Address: [address] [place] [address] Performed By: #### 1 9123-9, 64739-0, 2777- ####[facility] [id number] [place] [address] [place] Chloride [Moles/Vol] 105 mmol/L Normal 97-105 [facility] Comment on above: Order Comment: Speci men Type: BLOOD SPECIMENOrdering Facility: [facility] Address: [address] Performed By: #### 1 9123-9, 62422-8, 2777- ####[facility] [id number] [place] [address] [place] CO2 [Moles/Vol] 24 mmol/L Normal 22-30 [facility] Comment on above: Order Comment: Speci men Type: BLOOD SPECIMENOrdering Facility: [facility] Address: [address] [place], [place] [address] Performed By: #### 1 9123-9, 21928-2, 2777- ####[facility] [id number] [place] [address] [place] Creatinine [Mass/Vol] 0.76 mg/dL Normal 0.73-1.22 [facility] Comment on above: Order Comment: Speci men Type: BLOOD SPECIMENOrdering Facility: [facility] Address: [address] [place], [place] [address] Performed By: #### 1 9123-9, 65647-4, 2777- ####[facility] [id number] [place] [address] [place] ESTIMATED GLOMERULAR FILTRATION RATE 93 mL/min/1.73m??? Normal >=60 [facility] Comment on above: Order Comment: Speci men Type: BLOOD SPECIMENOrdering Facility: [facility] Address: [address] [place] [address] Result Comment: Mariaelena mated Glomerular Filtration Rate [...] actual GFR. Performed By: #### 1 9123-9, 78024-2, 2776- ####[facility] LABCLIA [id number] [place] [address] [place] Glucose [Mass/Vol] 147 mg/dL High 74-99 [facility] Comment on above: Order Comment: Portia tay Type: BLOOD SPECIMENOrdering Facility: [facility] Address: [address] [place] [address] Result Comment: The [place] Diabetes Association (ADA) provides guidance for cutoff [...] Standards of Medical Care in Diabetes 2016, [place] [employer] Association. Diabetes Care. 2016.39(Suppl 1). Performed By: #### 1 9123-9, , 2776-02 ####[facility] LABCLIA [id number] [place] [address] [place] Potassium [Moles/Vol] 4.2 mmol/L Normal 3.7-5.1 [facility] Comment on above: Order Comment: Portia tay Type: BLOOD SPECIMENOrdering Facility: [facility] Address: [address] [place] [address] Performed By: #### 1 9123-9, 44039-2, 2776-02 ####[facility] LABCLIA [id number] [place] [address] [place] Protein [Mass/Vol] 6.6 g/dL Normal 6.3-8.0 [facility] Comment on above: Order Comment: Speci men Type: BLOOD SPECIMENOrdering Facility: [facility] Address: [address] [place] [address] Performed By: #### 1 9123-9, 32378-7, 2777-1 ####[facility] LABIA [id number] [place] [address] [place] Sodium [Moles/Vol] 139 mmol/L Normal 136-144 [facility] Comment on above: Order Comment: Speci men Type: BLOOD SPECIMENOrdering Facility: [facility] Address: [address] [place] [address] Performed By: #### 1 9123-9, 26985-0, 2777-1 ####[facility] LABIA [id number] [place] [address] [place] Urea nitrogen [Mass/Vol] 14 mg/dL Normal 9-24 [facility] Comment on above: Order Comment: Speci men Type: BLOOD SPECIMENOrdering Facility: [facility] Address: [address] [place] [address] Performed By: #### 1 9123-9, 35262-8, 2777-1 ####[facility] LABIA [id number] [place] [id number] [place] ECHOon 08-28-2022 Echocardiography Echocardiography Rep ort: Transthoracic Echo [facility] Bedside Date of service: 08/28/2022 9:45:03 AM MEDICINE PHYSICIAN Ordering physician: DAVID ANDREWS Indication: Evaluation of [...] * * Final * * * CC [facility] Image : [id number] Normal [facility] HISTORY PHYSICALon HISTORY PHYSICAL HNO ID: [id number] Author: Earnest Portillo MD Service: Critical Care Author Type: Physician Type: HANDP Filed: 08/28/2022 10:48 PM Note Text: SERVICE DATE: 08/28/2022 SERVICE TIME: 9:49 PM SICU HANDP NOTE HPI: Olaf Briones is a 77 year old male with PMHx of recent STEMI on 08/20/22 (s/p JUHI),HTN, HLD, DM, nephrolithiasis, transferred from [facility] for gross hematuria. 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 Normal [facility] Magnesium SerPl-mCncon 08-28 Magnesium [Mass/Vol] 2.1 mg/dL Normal 1.7-2.3 [facility] Comment on above: Order Comment: Speci men Type: BLOOD SPECIMENOrdering Facility: [facility] Address: [address] [place] [address] Performed By: #### 1 9123-9, 82604-9, 2777-1 ####[facility] LABCLIA [id number] [facility] [address] OPERATIVE NOon 08-28-2022 OPERATIVE NO HNO ID: [id number] Author: David Andrews MD Service: Urology Author Type: Physician Type: Operative Report Filed: 08/28/2022 8:20 PM Note Text: OPERATIVE/PROCEDURE REPORT LOG ID: [id number] Surgery/Procedure Date: 08/28/2022 Incision/Procedure Start Time: 6:17 PM Incision Close/Procedure End Time: 7:50 PM Surgeon(s)/Proceduralist(s ) and Uniform Patrol Police Officer(s): Surgeon(s) and Role: * David Andrews MD [...] cold cup biopsy forceps as a stone director general to allow for the stone to be [...] of David Andrews MD [facility] STAFF PHYSICIAN NOTE OF PE (more content not included)... Normal [facility] Phosphate SerPl-ncon 08-28 Phosphate [Mass/Vol] 2.9 mg/dL Normal 2.7-4.8 [facility] Comment on above: Order Comment: Speci men Type: BLOOD SPECIMENOrdering Facility: [facility] Address: [address] [place] [address] Performed By: #### 1 9123-9, 15603-3, 2777-1 ####[facility] LABCLIA [id number] [address] OF [facility] SURGICAL PATHOLOGYon 023 CASE REPORT Normal [facility] Comment on above: Order Comment: Speci men Type: TISSUE SPECIMENOrdering Facility: [facility] Address: [address] [place] [address] Result Comment: Surg ical Pathology Report Case: [id number] Authorizing Provider: aDvid Andrews MD Collected: 08/28/2022 06:54 PM Ordering Location: Admitting Received: 08/29/2022 07:58 AM Pathologist: Gal Poon MD Specimens: A) - PROSTATE TISSUE (CHIPS) B) - PROSTATE TISSUE (CHIPS), #2 Performed By: #### S ####[facility] LABCLIA [id number] [address] OF [facility] CLINICAL HISTORY Normal [facility] Comment on above: Order Comment: Speci men Type: TISSUE SPECIMENOrdering Facility: [facility] Address: [address] [place] [address] Result Comment: Pre- op diagnosis: Hematuria [R31.9] Performed By: #### S ####[facility] LABCLIA [id number] [address] FINAL DIAGNOSIS Normal [facility] Comment on above: Order Comment: Speci men Type: TISSUE SPECIMENOrdering Facility: [facility] Address: [address] [place] [address] Result Comment: Frank Teixeira rostate, transurethral resection: - Benign prostatic hyperplasia. A. 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 Performed By: #### S ####[facility] LABCLIA [id number] [address] FINAL PERFORMING LAB Normal [facility] Comment on above: Order Comment: Speci men Type: TISSUE SPECIMENOrdering Facility: [facility] Address: [address] [place] [address] Result Comment: Diag nostic interpretation performed at [facility], [address] [place] [address] CLIA# [id number] Railroad Brake Repairer: Jacob Urias M.D. Performed By: #### S ####[facility] LABIA [id number] [place] [address] [place] GROSS DESCRIPTION Normal [facility] Comment on above: Order Comment: Speci men Type: TISSUE SPECIMENOrdering Facility: [facility] Address: [address] [place] [address] Result Comment: A. P ROSTATE TISSUE (CHIPS) [...] in cassette B1. Gross examination performed at [facility], [address] 08/29/2022 2:10 PM Performed By: #### S ####[facility] [id number] [place] [address] [place] VENOUS BLOOD GASES WITH IONI ZED MAGNESIUMon 08-28-2022 BASE DEFICIT, VENOUS -1 mmol/L Normal -2-0 [facility] Comment on above: Order Comment: Speci men Type: VENOUS BLOOD SPECIMENOrdering Facility: [facility] Address: [address] [place] [address] Performed By: #### V ALLMG ####[facility] [id number] [place] [address] [place] Calcium.ionized (Bld) [Mass/Vol] 1.19 mmol/L Normal 1.08-1.30 [facility] Comment on above: Order Comment: Speci men Type: VENOUS BLOOD SPECIMENOrdering Facility: [facility] Address: [address] [place] [address] Performed By: #### V ALLMG ####[facility] LABCLIA [id number] [place] [address] [place] Calcium.ionized adjusted to pH 7.4 (BldA) [Moles/Vol] 1.18 mmol/L Normal 1.08-1.30 [facility] Comment on above: Order Comment: Speci men Type: VENOUS BLOOD SPECIMENOrdering Facility: [facility] Address: [address] [place] [address] Performed By: #### V ALLMG ####[facility] LABCLIA [id number] [place] [address] [place] Carboxyhemoglobin (BldV) [Mass fraction] 1.9 % Normal 0.0-2.0 [facility] Comment on above: Order Comment: Speci men Type: VENOUS BLOOD SPECIMENOrdering Facility: [facility] Address: [address] [place], [place] [address] Result Comment: Carb oxyhemoglobin Reference Range for Smokers: 2.0-8.0% Performed By: #### V ALLMG ####[facility] LABCLIA [id number] [place] [address] [place] CO2 (BldV) [Partial pressure] 40 mm[Hg] Low 42-55 [facility] Comment on above: Order Comment: Speci men Type: VENOUS BLOOD SPECIMENOrdering Facility: [facility] Address: [address] Performed By: #### V ALLMG ####[facility] LABCLIA [id number] [place] [address] [place] CO2 [Moles/Vol] 25 mmol/L Normal 25-29 [facility] Comment on above: Order Comment: Speci men Type: VENOUS BLOOD SPECIMENOrdering Facility: [facility] Address: [address] [place], [place] [address] Performed By: #### V ALLMG ####[facility] LABCLIA [id number] [address] [place] CO2 adjusted to patient's actual temperature (BldV) [Partial pressure] 40 mmHg Low 42-55 [facility] Comment on above: Order Comment: Speci men Type: VENOUS BLOOD SPECIMENOrdering Facility: [facility] Address: [address] [place] [address] Performed By: #### V ALLMG ####[facility] LABCLIA [id number] [place] [address] [place] Glucose [Mass/Vol] 120 mg/dL High 60-105 [facility] Comment on above: Order Comment: Speci men Type: VENOUS BLOOD SPECIMENOrdering Facility: [facility] Address: [address] [place] [address] Performed By: #### V ALLMG ####[facility] LABCLIA [id number] [place] [address] [place] HCO3 (Bld) [Moles/Vol] 24 mmol/L Normal 24-28 [facility] Comment on above: Order Comment: Speci men Type: VENOUS BLOOD SPECIMENOrdering Facility: [facility] Address: [address] [place] [address] Performed By: #### V ALLMG ####[facility] LABCLIA [id number] [place] [address] [place] Hematocrit (Bld) [Volume fraction] 37.2 % Low 39.0-51.0 [facility] Comment on above: Order Comment: Speci men Type: VENOUS BLOOD SPECIMENOrdering Facility: [facility] Address: [address] [place], [place] [address] Performed By: #### V ALLMG ####[facility] LABCLIA [id number] [place] [address] [place] Hemoglobin (Bld) [Mass/Vol] 12.1 g/dL Low 13.0-17.0 [facility] Comment on above: Order Comment: Speci men Type: VENOUS BLOOD SPECIMENOrdering Facility: [facility] Address: [address] Performed By: #### V ALLMG ####[facility] LABCLIA [id number] [place] [address] [place] Lactate [Moles/Vol] 1.4 mmol/L Normal 0.5-2.2 [facility] Comment on above: Order Comment: Speci men Type: VENOUS BLOOD SPECIMENOrdering Facility: [facility] Address: [address] Performed By: #### V ALLMG ####[facility] LABIA [id number] [place] [address] [place] Magnesium [Moles/Vol] 0.58 mmol/L Normal 0.45-0.60 [facility] Comment on above: Order Comment: Speci men Type: VENOUS BLOOD SPECIMENOrdering Facility: [facility] Address: [address] Performed By: #### V ALLMG ####[facility] LABIA [id number] [place] [address] [place] Methemoglobin (Bld) [Mass fraction] 1.7 % High 0.0-1.5 [facility] Comment on above: Order Comment: Speci men Type: VENOUS BLOOD SPECIMENOrdering Facility: [facility] Address: [address] Performed By: #### V ALLMG ####[facility] LABIA [id number] [place] [address] [place] Oxygen (BldV) [Partial pressure] 96 mm[Hg] High 35-45 [facility] Comment on above: Order Comment: Speci men Type: VENOUS BLOOD SPECIMENOrdering Facility: [facility] Address: [address] Performed By: #### V ALLMG ####[facility] LABCLIA [id number] [place] [address] [place] Oxygen adjusted to patient's actual temperature (BldV) [Partial pressure] 96 mmHg High 35-45 [facility] Comment on above: Order Comment: Speci men Type: VENOUS BLOOD SPECIMENOrdering Facility: [facility] Address: [address] [place] [address] Performed By: #### V ALLMG ####[facility] LABCLIA [id number] [place] [address] [place] Oxygen saturation in Venous blood 97 % High 60-85 [facility] Comment on above: Order Comment: Speci men Type: VENOUS BLOOD SPECIMENOrdering Facility: [facility] Address: [address] [place] [address] Performed By: #### V ALLMG ####[facility] LABCLIA [id number] [place] [address] [place] Oxyhemoglobin (BldV) [Mass fraction] 94 % High 60-85 [facility] Comment on above: Order Comment: Speci men Type: VENOUS BLOOD SPECIMENOrdering Facility: [facility] Address: [address] [place] [address] Performed By: #### V ALLMG ####[facility] LABCLIA [id number] [place] [address] [place] pH (BldV) 7.39 [pH] Normal 7.32-7.42 [facility] Comment on above: Order Comment: Speci men Type: VENOUS BLOOD SPECIMENOrdering Facility: [facility] Address: [address] [place], [place] [address] Performed By: #### V ALLMG ####[facility] LABCLIA [id number] [place] [address] [place] pH adjusted to patient's actual temperature (BldV) 7.39 Normal 7.32-7.42 [facility] Comment on above: Order Comment: Speci men Type: VENOUS BLOOD SPECIMENOrdering Facility: [facility] Address: [address] [place] [address] Performed By: #### V ALLMG ####[facility] LABCLIA [id number] [address] [place] Potassium [Moles/Vol] 3.8 mmol/L Normal 3.5-5.0 [facility] Comment on above: Order Comment: Speci men Type: VENOUS BLOOD SPECIMENOrdering Facility: [facility] Address: [address] [place] [address] Performed By: #### V ALLMG ####[facility] LABCLIA [id number] [place] [address] [place] Sodium [Moles/Vol] 139 mmol/L Normal 136-144 [facility] Comment on above: Order Comment: Speci men Type: VENOUS BLOOD SPECIMENOrdering Facility: [facility] Address: [address] [place] [address] Performed By: #### V ALLMG ####[facility] LABCLIA [id number] [place] [address] [place] XR CHEST 1V [...] tortuous. Other: Generalized osteopenia. IMPRESSION: See result. Shelf Filler: PSCB Transcribe Date/Time: Aug 28 2022 10:04P Dictated by : AMERICO ADHIKARI MD This examination was interpreted and the report reviewed and electronically signed by: AMERICO ADHIKARI MD on Aug 28 2022 10:06PM EST [id number] Normal [facility] Bacteria Bld Culton 08-28-19 23 Bacteria identified Cx Nom (Bld) CULTURE, BLOOD: No growth 5 days Normal [facility] Comment on above: Performed By: #### 6 00-7 ####[facility] LABCLIA [id number] [place] [address] [place] Bacteria identified Cx Nom (Bld) CULTURE, BLOOD: No growth 5 days Normal [facility] Comment on above: Performed By: #### 6 00-7 ####[facility] LABCLIA [id number] [place] [address] [place] Bacteria Ur Culton 3 Bacteria identified Cx Nom (U) CULTURE, URINE: No growth (<1,000 CFU/ml) Normal [facility] Comment on above: Performed By: #### 6 30-4 ####[facility] LABCLIA [id number] [place] [address] [place] Basic metabolic 2000 panelon 08-27-2022 Anion gap [Moles/Vol] 13 mmol/L Normal 9-18 [facility] Comment on above: Order Comment: Speci men Type: BLOOD SPECIMENOrdering Facility: [facility] Address: [address] [place], [place] [address] Performed By: #### 2 4321-2, 29445-4, 2777-1 ####[facility] LABCLIA [id number] [place] [address] [place] Calcium [Mass/Vol] 9.3 mg/dL Normal 8.5-10.2 [facility] Comment on above: Order Comment: Speci men Type: BLOOD SPECIMENOrdering Facility: [facility] Address: [address] [place], [place] [address] Performed By: #### 2 4321-2, , 2776-02 ####[facility] LABCLIA [id number] [place] [address] [place] Chloride [Moles/Vol] 105 mmol/L Normal 97-105 [facility] Comment on above: Order Comment: Speci men Type: BLOOD SPECIMENOrdering Facility: [facility] Address: [address] [place] [address] Performed By: #### 2 4321-2, , 2776-02 ####[facility] LABCLIA [id number] [place] [address] [place] CO2 [Moles/Vol] 22 mmol/L Normal 22-30 [facility] Comment on above: Order Comment: Speci men Type: BLOOD SPECIMENOrdering Facility: [facility] Address: [address] [place] [address] Performed By: #### 2 4321-2, , 2776-02 ####[facility] LABCLIA [id number] [place] [address] [place] Creatinine [Mass/Vol] 0.79 mg/dL Normal 0.73-1.22 [facility] Comment on above: Order Comment: Speci men Type: BLOOD SPECIMENOrdering Facility: [facility] Address: [address] [place], [place] [address] Performed By: #### 2 4321-2, , 2776-02 ####[facility] LABCLIA [id number] [place] [address] [place] ESTIMATED GLOMERULAR FILTRATION RATE 91 mL/min/1.73m??? Normal >=60 [facility] Comment on above: Order Comment: Speci men Type: BLOOD SPECIMENOrdering Facility: [facility] Address: [address] [place] [address] Result Comment: Mariaelena mated Glomerular Filtration Rate [...] By: #### 2 4321-2, , 2776-02 ####[facility] LABCLIA [id number] [address] [address] [place] Glucose [Mass/Vol] 197 mg/dL High 74-99 [facility] Comment on above: Order Comment: Specherbie men Type: BLOOD SPECIMENOrdering Facility: [facility] Address: [address] [place] [address] Result Comment: The [place] Diabetes [employer] (ADA) provides guidance for cutoff [...] Standards of Medical Care in Diabetes 2016, [place] [employer]. Diabetes Care. 2016.39(Suppl 1). Performed By: #### 2 4321-2, , 2776-02 ####[facility] LABCLIA [id number] [address] [address] [place] Potassium [Moles/Vol] 4.3 mmol/L Normal 3.7-5.1 [facility] Comment on above: Order Comment: Speci men Type: BLOOD SPECIMENOrdering Facility: [facility] Address: [address] [place] [address] Performed By: #### 2 4321-2, 21829-8, 2776-02 ####[facility] LABCLIA [id number] [address] [address] [place] Sodium [Moles/Vol] 140 mmol/L Normal 136-144 [facility] Comment on above: Order Comment: Speci men Type: BLOOD SPECIMENOrdering Facility: [facility] Address: [address] [place] [address] Performed By: #### 2 4321-2, , 2776-02 ####[facility] LABCLIA [id number] [place] [address] [place] Urea nitrogen [Mass/Vol] 17 mg/dL Normal 9-24 [facility] Comment on above: Order Comment: Speci men Type: BLOOD SPECIMENOrdering Facility: [facility] Address: [address] [place] [address] Performed By: #### 2 4321-2, , 2776-02 ####[facility] LABCLIA [id number] [place] [id number] [place] CASE MGT INIT ASSESon 2022 CASE MGT INIT ASSES HNO ID: [id number] Author: Yane George RN Service: ? Author [...] Current Advance Directive: Health Care Power of Helicopter Pilot (Patient reports he has AD. request copy [...] General wellness, Be able to go home [place] Explained: [place] Given: No Reason Not Given: [...] HLD, DM, nephrolithiasis who was transferred from [facility] w/ gross hematuria CM met patient in room. Patient lives with spouse at home. Patient reports independence at home with adl's/iadl's prior to admission. No oxygen, or cpaps at home. Had recent CT in past. Cardiology on consult. No current [...] 27, 2022 TIME: 5:05 PM CONTACT #: [phone] Normal [facility] CBC W Auto Differential pane l (Bld)on 08-27-2022 Basophils (Bld) [#/Vol] 0.03 10*3/uL Normal <0.11 [facility] Comment on above: Order Comment: Speci men Type: BLOOD SPECIMENOrdering Facility: [facility] Address: [address] Performed By: #### 5 7021-8 ####[facility] LABCLIA [id number] [address] [place] [facility] Basophils/100 WBC (Bld) 0.2 % Normal [facility] Comment on above: Order Comment: Speci men Type: BLOOD SPECIMENOrdering Facility: [facility] Address: [address] Performed By: #### 5 7021-8 ####[facility] LABCLIA [id number] [address] OF [facility] Differential cell count method Nom (Bld) Auto Normal [facility] Comment on above: Order Comment: Speci men Type: BLOOD SPECIMENOrdering Facility: [facility] Address: [address] [place] [address] Performed By: #### 5 7021-8 ####[facility] LABCLIA [id number] [place] [address] [place] Eosinophils (Bld) [#/Vol] 10*3/uL Normal <0.46 [facility] Comment on above: Order Comment: Speci men Type: BLOOD SPECIMENOrdering Facility: [facility] Address: [address] Performed By: #### 5 7021-8 ####[facility] LABCLIA [id number] [address] STATES OF [facility] Eosinophils/100 WBC (Bld) 0.1 % Normal [facility] Comment on above: Order Comment: Speci men Type: BLOOD SPECIMENOrdering Facility: [facility] Address: [address] [place], [place] [address] Performed By: #### 5 7021-8 ####[facility] LABCLIA [id number] [address] [place] Erythrocyte distribution width (RBC) [Ratio] 12.5 % Normal 11.5-15.0 [facility] Comment on above: Order Comment: Speci men Type: BLOOD SPECIMENOrdering Facility: [facility] Address: [address] [place] [address] Performed By: #### 5 7021-8 ####[facility] LABCLIA [id number] [place] [address] [place] Hematocrit (Bld) [Volume fraction] 38.5 % Low 39.0-51.0 [facility] Comment on above: Order Comment: Speci men Type: BLOOD SPECIMENOrdering Facility: [facility] Address: [address] [place] [address] Performed By: #### 5 7021-8 ####[facility] LABCLIA [id number] [place] [address] [place] Hemoglobin (Bld) [Mass/Vol] 13.4 g/dL Normal 13.0-17.0 [facility] Comment on above: Order Comment: Speci men Type: BLOOD SPECIMENOrdering Facility: [facility] Address: [address] [place], [place] [address] Performed By: #### 5 7021-8 ####[facility] LABIA [id number] [place] [address] [place] Immature granulocytes (Bld) [#/Vol] 0.10 10*3/uL High <0.10 [facility] Comment on above: Order Comment: Speci men Type: BLOOD SPECIMENOrdering Facility: [facility] Address: [address] [place], [place] [address] Performed By: #### 5 7021-8 ####[facility] LABCLIA [id number] [place] [address] [place] Immature granulocytes/100 WBC (Bld) 0.6 % Normal [facility] Comment on above: Order Comment: Speci men Type: BLOOD SPECIMENOrdering Facility: [facility] Address: [address] Performed By: #### 5 7021-8 ####[facility] LABCLIA [id number] [place] [address] [place] Lymphocytes (Bld) [#/Vol] 1.16 10*3/uL Normal 1.00-4.00 [facility] Comment on above: Order Comment: Speci men Type: BLOOD SPECIMENOrdering Facility: [facility] Address: [address] [place] [address] Performed By: #### 5 7021-8 ####[facility] LABCLIA [id number] [address] [place] Lymphocytes/100 WBC (Bld) 7.1 % Normal [facility] Comment on above: Order Comment: Speci men Type: BLOOD SPECIMENOrdering Facility: [facility] Address: [address] [place], [place] [address] Performed By: #### 5 7021-8 ####[facility] LABCLIA [id number] [place] [address] [place] MCH (RBC) [Entitic mass] 31.5 pg Normal 26.0-34.0 [facility] Comment on above: Order Comment: Speci men Type: BLOOD SPECIMENOrdering Facility: [facility] Address: [address] [place], [place] [address] Performed By: #### 5 7021-8 ####[facility] LABCLIA [id number] [place] [address] [place] MCHC (RBC) [Mass/Vol] 34.8 g/dL Normal 30.5-36.0 [facility] Comment on above: Order Comment: Speci men Type: BLOOD SPECIMENOrdering Facility: [facility] Address: [address] [place], [place] [address] Performed By: #### 5 7021-8 ####[facility] LABCLIA [id number] [place] [address] [place] MCV (RBC) [Entitic vol] 90.6 fL Normal 80.0-100.0 [facility] Comment on above: Order Comment: Speci men Type: BLOOD SPECIMENOrdering Facility: [facility] Address: [address] [place] [address] Performed By: #### 5 7021-8 ####[facility] LABIA [id number] [place] [address] [place] Monocytes (Bld) [#/Vol] 1.00 10*3/uL High <0.87 [facility] Comment on above: Order Comment: Speci men Type: BLOOD SPECIMENOrdering Facility: [facility] Address: [address] [place] [address] Performed By: #### 5 7021-8 ####[facility] LABIA [id number] [place] [address] [place] Monocytes/100 WBC (Bld) 6.2 % Normal [facility] Comment on above: Order Comment: Speci men Type: BLOOD SPECIMENOrdering Facility: [facility] Address: [address] [place] [address] Performed By: #### 5 7021-8 ####[facility] LABIA [id number] [place] [address] [place] Neutrophils (Bld) [#/Vol] 13.93 10*3/uL High 1.45-7.50 [facility] Comment on above: Order Comment: Speci men Type: BLOOD SPECIMENOrdering Facility: [facility] Address: [address] [place], [place] [address] Performed By: #### 5 7021-8 ####[facility] LABCLIA [id number] [place] [address] [place] Neutrophils/100 WBC (Bld) 85.8 % Normal [facility] Comment on above: Order Comment: Speci men Type: BLOOD SPECIMENOrdering Facility: [facility] Address: [address] [place] [address] Performed By: #### 5 7021-8 ####[facility] LABIA [id number] [place] [address] [place] Nucleated RBC (Bld) [#/Vol] 10*3/uL Normal <0.01 [facility] Comment on above: Order Comment: Speci men Type: BLOOD SPECIMENOrdering Facility: [facility] Address: [address] Performed By: #### 5 7021-8 ####[facility] LABIA [id number] [place] [address] [place] Nucleated RBC/100 WBC (Bld) [Ratio] 0.0 /100 WBC Normal [facility] Comment on above: Order Comment: Speci men Type: BLOOD SPECIMENOrdering Facility: [facility] Address: [address] Performed By: #### 5 7021-8 ####[facility] LABIA [id number] [place] [address] [place] Platelet mean volume (Bld) [Entitic vol] 11.4 fL Normal 9.0-12.7 [facility] Comment on above: Order Comment: Speci men Type: BLOOD SPECIMENOrdering Facility: [facility] Address: [address] [place] [address] Performed By: #### 5 7021-8 ####[facility] LABIA [id number] [place] [address] [place] Platelets (Bld) [#/Vol] 214 10*3/uL Normal 150-400 [facility] Comment on above: Order Comment: Speci men Type: BLOOD SPECIMENOrdering Facility: [facility] Address: [address] [place] [address] Performed By: #### 5 7021-8 ####[facility] LABCLIA [id number] [place] [address] [place] RBC (Bld) [#/Vol] 4.25 10*6/uL Normal 4.20-6.00 [facility] Comment on above: Order Comment: Speci men Type: BLOOD SPECIMENOrdering Facility: [facility] Address: [address] [place] [address] Performed By: #### 5 7021-8 ####[facility] LABCLIA [id number] [place] [address] [place] WBC (Bld) [#/Vol] 16.24 10*3/uL High 3.70-11.00 [facility] Comment on above: Order Comment: Speci men Type: BLOOD SPECIMENOrdering Facility: [facility] Address: [address] [place] [address] Performed By: #### 5 7021-8 ####[facility] LABCLIA [id number] [address] [place] BLOOD TYPEon 023 ABO O Normal [facility] Comment on above: Order Comment: Speci men Type: BLOOD SPECIMENOrdering Facility: [facility] Address: [address] [place] [address] Performed By: #### C ONABO ####[facility] BLOOD BANKCLIA [id number] [address] [place] Rh Nom (Bld) Positive Normal [facility] Comment on above: Order Comment: Speci men Type: BLOOD SPECIMENOrdering Facility: [facility] Address: [address] [place] [address] Performed By: #### C ONABO ####[facility]IN BLOOD BANKCLIA [id number] [address] [place] CONSULTon 08-27-2022 CONSULT HNO ID: [id number] Author: Uzma Bates MD Service: Cardiovascular Medicine Author Type: Physician Type: Consults Filed: 08/27/2022 8:39 PM Note Text: [facility] CARDI[facility]ASCULAR MEDICINE CONSULT NOTE (Template ID [id number]) Olaf Briones [id number] PRIMARY SERVICE: Urology CONSULTING SERVICE: Cardiovascular Medicine: [...] HLD, DM, nephrolithiasis who was transferred from [facility] w/ gross hematuria. Hematuria started on Thursday [...] passed out . Pt was taken to [facility] by EMS and was found to be in complete AV block with HR in 40's, inferolateral ST elevations. 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 After stent was deployed in prox RCA,AV block resolved and HR normalized. Pt was put on ASA, Brillinta, Lisinopril (2.5), and Coreg (6.25) and was discharged two days later. PAST MEDICAL HISTORY HTN, HLD, CAD, DM FAMILY HISTORY Son- CT, Daughter- CT HOME MEDICATIONS allopurinol (ZYLOPRIM) 300 mg tabletTake [...] rash o (more content not included)... Normal [facility] ECG COMPLETEon 08-27-2022 ECG COMPLETE Ventricular Rate : 6 8 BPM Atrial Rate : 68 BPM P-R Interval : 186 ms QRS Duration : 102 ms Q-T Interval : 452 ms QTC Calculation(Bazett) : 480 ms Calculated P [place] : 7 degrees Calculated R [place] : -25 degrees Calculated T [place] : -33 degrees NORMAL SINUS RHYTHM MINIMAL VOLTAGE CRITERIA FOR LVH, MAY BE NORMAL VARIANT ( R in aVL ) CANNOT EXCLUDE ANTERIOR MYOCARDIAL INFARCTION , AGE UNDETERMINED ABNORMAL ECG Confirmed by CODY MANCIA MD ([id number]) on 09/01/2022 3:04:36 PM NAME : OLAF BRIONES PID : [id number] : 1945 Gender : Male Race : Unknown ORD : [id number] Procedure Date : Aug 27 2022 12:56:05 [...] : , Acquired by : CAROL MALDONADO [facility] HISTORY PHYSICALon HISTORY PHYSICAL HNO ID: [id number] Author: David Andrews MD Service: Urology Author Type: Physician Type: HANDP Filed: 08/27/2022 9:26 PM Note Text: UROLOGY SERVICE HISTORY AND PHYSICAL Name: Olaf Briones Bed: H050 001/H050- Date: 08/27/2022 After Hours [facility] Urology Service Pager: [phone] ASSESSMENT AND PLAN Olaf Briones is a 77 year old male with PMHx of HTN, HLD, DM, recent STEMI (s/p JUHI), nephrolithiasis, transferred from [facility] for gross hematuria. Currently with 18Fr 3-way [...] s/p JUHI, nephrolithiasis who was transferred from [facility] for gross hematuria w/ 18-Fr 3-way cathter [...] catheter stops flowing clamp CBI and page [phone] - Will continue to follow urine, if remains clear may be able to avoid OR this admission in setting of recent STEMI requiring PCI - Working to obtain cardiology records from [facility] Gt Encarnacion MD PGY-6, Urology Pager: [phone] After 1800 and on weekends please page [phone] for assistance. Active Problems Prior CT POA: Yes - placed on ASA 81, [...] recent STEMI (s/p JUHI), nephrolithiasis, transferred from [facility] for gross hematuria. He recently had primary revascularization of proximal RCA (3mm JUHI) placed at [facility] for STEMI on August 20. He was [...] He is seen by Dr. Ivory in [facility] for nephrolithiasis. He previously had ESWL (2000), [...] as need (more content not included)... Normal [facility] 08-27-2022 MEDICAL [facility] HNO ID: [id number] Author: Francis Irizarry MD Service: Urology Author Type: Resident Type: Chg in Clinical Condition Filed: 08/27/2022 9:40 AM Note Text: Olaf Briones 08/27/2022 9:33 AM AMET for orthostatic hypotension Assessment: Olaf Briones is a 77 year old male with PMHx of HTN, HLD, DM, recent STEMI (s/p JUHI), nephrolithiasis, transferred from [facility] for gross hematuria. Currently with 18Fr 3-way [...] brillinta for recent STEMI last week at [facility]. Unable to see ECHO data, EKG at [...] his is coming to visit. Stated his soft crab shedder in [place] at [facility] is Dr. Zamora. Luis Angel on [...] at bedside to have bring records from [facility] to here. Will also request ECHO report from [facility] as well. - Continue CBI, titrate to light pink Discussed with chief, Dr. Encarnacion, and staff, Dr. Sharon Irizarry MD Pager [phone], after hours or weekends please page [phone] Urology Resident, PGY-5 Normal [facility] HNO ID: [id number] Author: Claudy William APRN.SERVER ENGINEER Service: Critical Care Author Type: Nurse [...] Primary Team Aware/Notified: Yes SIGNATURE: Claudy William APRN.JOCELYN PATIENT NAME: Olaf Briones DATE: August 27, 2022 TIME: 9:11 AM Normal [facility] Magnesium SerPl-mCncon 08-27 Magnesium [Mass/Vol] 2.2 mg/dL Normal 1.7-2.3 [facility] Comment on above: Order Comment: Speci jasvir Type: BLOOD SPECIMENOrdering Facility: [facility] Address: [address] [place] [address] Performed By: #### 2 4321-2, 82478-7, 2777-1 ####[facility] LABCLIA [id number] [address] [place] PT panel Coag (PPP)on 2022 INR Coag (PPP) [Relative time] 1.0 {INR} Normal 0.9-1.3 [facility] Comment on above: Order Comment: Janiei jasvir Type: BLOOD SPECIMENOrdering Facility: [facility] Address: [address] [place] [address] Result Comment: Mago min K Antagonist (VKA) Therapeutic Range: INR 2 to 3 (Target INR of 2.5) Note: For patients treated with VKA drugs, such as warfarin, the [place] [employer] 2012 Guideline recommends [...] Chest 2012, 141:7S-47S Daniel KENNEDY, et al. [facility] 2017, 70: 252-289 Performed By: #### 3 4528-0, 79355-5 ####[facility] LABCLIA [id number] [place] [address] [place] PT Coag (PPP) [Time] 10.4 s Normal 9.7-13.0 [facility] Comment on above: Order Comment: Speci men Type: BLOOD SPECIMENOrdering Facility: [facility] Address: [address] Performed By: #### 3 4528-0, 27245-1 ####[facility] LABCLIA [id number] [place] [id number] [place] Phosphate SerPl-mCncon 08-27 Phosphate [Mass/Vol] 3.7 mg/dL Normal 2.7-4.8 [facility] Comment on above: Order Comment: Speci men Type: BLOOD SPECIMENOrdering Facility: [facility] Address: [address] [place] [address] Performed By: #### 2 4321-2, 96873-0, 2777-1 ####[facility] LABCLIA [id number] [place] [address] [place] TYPE + SCREENon 08-27-2022 ABO O Normal [facility] Comment on above: Order Comment: Speci men Type: BLOOD SPECIMENOrdering Facility: [facility] Address: [address] [place] [address] Performed By: #### T SCR ####CC MAIN BLOOD BANKCLIA [id number] [address] [place] HISTORICAL AB SCR STATUS Negative Normal [facility] Comment on above: Order Comment: Speci men Type: BLOOD SPECIMENOrdering Facility: [facility] Address: [address] [place] [address] Performed By: #### T SCR ####[facility] BLOOD BANKIA [id number] [place] [address] [place] Rh Nom (Bld) Positive Normal [facility] Comment on above: Order Comment: Speci men Type: BLOOD SPECIMENOrdering Facility: [facility] Address: [address] [place] [address] Performed By: #### T SCR ####CC MAIN BLOOD BANKCLIA [id number] [address] STATES [place] TYPE AND SCREEN EXPIRATION 08/30/2022 23:59 Normal [facility] Comment on above: Order Comment: Speci men Type: BLOOD SPECIMENOrdering Facility: [facility] Address: [address] [place], [place] [address] Performed By: #### T SCR ####CC MAIN BLOOD BANKIA [id number] [place] [address] [place] aPTT PPPon 08-27-2022 aPTT Coag (PPP) [Time] 28.7 s Normal 23.0-32.4 [facility] Comment on above: Order Comment: Speci men Type: BLOOD SPECIMENOrdering Facility: [facility] Address: [address] [place], [place] [address] Performed By: #### 3 4528-0, 37037-7 ####[facility] LABCLIA [id number] LOAN [facility] [id number] STATES OF [facility] CHEMISTRYOrdered By: SYSTEM SYSTEM on 08-26-2022 Anion gap [Moles/Vol] 13 mmol/L Normal 6 - 16 mEq/L [facility] Calcium [Mass/Vol] 8.9 mg/dL Normal 8.9 - 11. 1 mg/dL [facility] Remisol Chloride [Moles/Vol] 105 mmol/L Normal 101 - 1 11 mmol/L [facility] Remisol CO2 [Moles/Vol] 24 mmol/L Normal 21 - 31 mmol/L [facility] Remisol Creatinine [Mass/Vol] 0.9 mg/dL Normal 0.5 - 1.3 mg/dL [facility] GFR/1.73 sq M.predicted among non-blacks MDRD (S/P/Bld) [Vol rate/Area] 88 mL/min/1.73 m2 Normal >=59mL/min /1.73 m2 [facility] Chem S Glucose [Mass/Vol] 154 mg/dL Normal 55 - 199 mg/dL [facility] Remisol Potassium [Moles/Vol] 4.0 mmol/L Normal 3.5 [...] s High 9.4 - 1 2.5 second(s) [facility] Auto Coag HEMATOLOGYOrdered By: SYSTEM SYSTEM on 08-26-2022 Basophils/100 [...] Cx Nom (U) No growth to date [facility] URINALYSISOrdered By: Jordan quintana on 08-26-2022 Bacteria [...] Interpretation Code Negative [facility] UA Auto SS Stark.plasma/Stark. RBC (Bld) [Mass ratio] >75 /HPF Invalid Interpretation Code 0-3/HPF [facility] UA Auto SS Mucus Ql (Urine sed) 1+ (08/26/22 6:58 PM) Normal [facility] UA Auto SS Nitrite Ql (U) Positive *ABN* (08/26/22 6:58 PM) Invalid Interpretation Code Negative [facility] UA Auto SS pH (U) 7.5 *NA* (08/26/22 6:58 PM) Invalid Interpretation Code 5.0 - 9.0 [facility] UA Auto SS Protein (U) [Mass/Vol] 3+ *ABN* (08/26/22 6:58 PM) Invalid Interpretation Code Negative [facility] UA Auto SS Specific gravity (U) [Rel density] 1.015 *NA* (08/26/22 6:58 PM) Invalid Interpretation Code 1.005 - 1.030 [facility] UA Auto SS UA Spec Desc Catheter (08/26/22 6:58 PM) Normal [facility] UA Auto SS Urobilinogen Qn (U) {Belem'U}/dL Invalid Interpretation Code 0.0 - 1.0 EU/dL [facility] UA Auto SS WBC Auto Ql (U) 2+ *ABN* (08/26/22 6:58 PM) Invalid Interpretation Code Negative [facility] UA Auto SS WBC LM.HPF (Urine sed) [#/Area] 16-25 /HPF Invalid Interpretation Code 0-5/HPF [facility] UA Auto SS Basic Metabolic Panelon 07-0 Anion gap [Moles/Vol] 10.8 mmol/L Normal 6.0-15.0 [facility] Comment on above: Performed By: #### H S TROP #### [facility] [address] [place] [address] [place] Calcium [Mass/Vol] 9.0 mg/dL Normal 8.6-10.3 [facility] Comment on above: Performed By: #### H S TROP #### [facility] [address] [place] [address] [place] Chloride [Moles/Vol] 105 mmol/L Normal 98-107 [facility] Comment on above: Performed By: #### H S TROP #### [facility] [address] [place] [id number] [place] CO2 [Moles/Vol] 26.0 mmol/L Normal 21.0-31.0 [facility] Comment on above: Performed By: #### H S TROP #### [facility] [address] [place] [address] [place] Creatinine [Mass/Vol] 0.79 mg/dL Normal 0.70-1.30 [facility] Comment on above: Performed By: #### H S TROP #### [place] [address] [place] Creatinine Clr Calc Pharmacy 74.81 Normal [facility] Comment on above: Result Comment: PERF ORMED BY: [place] [address] PATHOLOGIST SANDER AND BUFFER DREW REAL M.D. Performed By: #### H S TROP #### [place] [address] [place] GFR/1.73 sq M.predicted MDRD (S/P/Bld) [Vol rate/Area] mL/min/{1.73_m2} Normal [facility] Comment on above: Performed By: #### H S TROP #### [address] Glucose [Mass/Vol] 133 mg/dL High 70-100 [facility] Comment on above: Result Comment: [place] Glucose Reference Range is dependent on time and content of last meal. Glucose of more than 200 mg/dL in a nonstressed, ambulatory subject supports the diagnosis of Diabetes Mellitus. ADA recommended reference range Performed By: #### H S TROP #### [address] Potassium [Moles/Vol] 3.8 mmol/L Normal 3.5-5.1 [facility] Comment on above: Performed By: #### H S TROP #### [place] [address] [place] Sodium [Moles/Vol] 138 mmol/L Normal 136-145 [facility] Comment on above: Performed By: #### H S TROP #### [place] [address] [place] Urea nitrogen [Mass/Vol] 20 mg/dL Normal 7-25 [facility] Comment on above: Performed By: #### H S TROP #### [place] [address] [place] Basophils Auto (Bld) [#/Vol] Ordered By: Steven Zamora on 08-22-2022 Basophils (Bld) [#/Vol] 0.0 10*3/uL 0.0-0.2 [facility] Basophils/100 WBC Auto (Bld) Ordered By: Steven Zamora on 08-22-2022 Basophils/100 WBC (Bld) 0.3 % . F [facility] Calcium [Mass/volume] in Ser um or PlasmaOrdered By: Steven Zamora on 08-22-2022 Calcium [Mass/Vol] 9.0 mg/dL 8.6-10.3 [facility] Carbon dioxide, total [Moles /volume] in Serum or PlasmaOrdered By: Steven Zamora on 08-22-2022 CO2 [Moles/Vol] 26.0 mmol/L 21.0-31.0 [facility] Chloride [Moles/volume] in S jamin or PlasmaOrdered By: Steven Zamora on 08-22-2022 Chloride [Moles/Vol] 105 mmol/L 98-107 [facility] Complete Blood Count Auto Di ffon 08-22-2022 Basophils (Bld) [#/Vol] 0.0 10*3/uL Normal 0.0-0.2 [facility] Comment on above: Result Comment: PERF ORMED BY: [place] [address] PATHOLOGIST [employer] DREW REAL M.D. Performed By: #### H S TROP #### [facility] [address] [place] [address] [place] Basophils/100 WBC (Bld) 0.3 % Normal . F [facility] Comment on above: Performed By: #### H S TROP #### [facility] [address] [place] [address] [place] Eosinophils (Bld) [#/Vol] 0.1 10*3/uL Normal 0.0-0.45 [facility] Comment on above: Performed By: #### H S TROP #### [facility] [address] [place] [address] [place] Eosinophils/100 WBC (Bld) 1.6 % Normal . [facility] Comment on above: Performed By: #### H S TROP #### [facility] [address] Erythrocyte distribution width (RBC) [Ratio] 13.7 % Normal 12.0-14.8 [facility] Comment on above: Performed By: #### H S TROP #### [address] Hematocrit (Bld) [Volume fraction] 41.1 % Normal 38.8-50.0 [facility] Comment on above: Performed By: #### H S TROP #### [address] Hemoglobin (Bld) [Mass/Vol] 13.9 g/dL Normal 13.0-17.0 [facility] Comment on above: Performed By: #### H S TROP #### [address] Lymphocytes (Bld) [#/Vol] 1.4 10*3/uL Normal 1.00-4.8 [facility] Comment on above: Performed By: #### H S TROP #### [address] Lymphocytes/100 WBC (Bld) 15.9 % Normal . [facility] Comment on above: Performed By: #### H S TROP #### [address] MCH (RBC) [Entitic mass] 31.5 pg Normal 27.5-35.2 [facility] Comment on above: Performed By: #### H S TROP #### [address] MCV (RBC) [Entitic vol] 92.8 fL Normal 83.5-101 F [facility] Comment on above: Performed By: #### H S TROP #### [address] Mean Corpuscular HGB Conc 33.9 g/dL Normal 32.5-35.6 [facility] Comment on above: Performed By: #### H S TROP #### [facility] [address] [place] [address] [place] Monocytes (Bld) [#/Vol] 0.9 10*3/uL High 0.0-0.8 [facility] Comment on above: Performed By: #### H S TROP #### [facility] [address] [place] [address] [place] Monocytes/100 WBC (Bld) 9.7 % Normal . F [facility] Comment on above: Performed By: #### H S TROP #### [address] Neutrophils (Bld) [#/Vol] 6.4 10*3/uL Normal 1.8-7.7 [facility] Comment on above: Performed By: #### H S TROP #### [address] Neutrophils/100 WBC (Bld) 72.5 % Normal . [facility] Comment on above: Performed By: #### H S TROP #### [address] NRBC% 0.1 /100{WBC} Normal 0-0.5 [facility] Comment on above: Performed By: #### H S TROP #### [address] Platelet mean volume (Bld) [Entitic vol] 9.6 fL Normal 6.6-10.1 [facility] Comment on above: Performed By: #### H S TROP #### [place] [address] [place] Platelets (Bld) [#/Vol] 162 10*3/uL Normal 150-450 [facility] Comment on above: Performed By: #### H S TROP #### [place] [address] [place] RBC (Bld) [#/Vol] 4.43 10*6/uL Normal 3.90-5.60 [facility] Comment on above: Performed By: #### H S TROP #### [address] [address] [place] WBC (Bld) [#/Vol] 8.8 10*3/uL Normal 4.1-10.5 [facility] Comment on above: Performed By: #### H S TROP #### [facility] [address] [place] [address] Creatinine [Mass/volume] in Serum or PlasmaOrdered By: Steven Zamora on 08-22-2022 Creatinine [Mass/Vol] 0.79 mg/dL 0.70-1.30 [facility] ECG 12 lead ECGon 08-22-2022 ECG 12 lead ECG [facility] [place] [address] Electrocardiograph Report Signed Patient: Olaf Briones MR#: [id number] [birth year] : 1945 Acct:[id number] Age/Sex: 77 / M ADM Date: 08/20/22 Loc: Room: [address] [place] [address] Type: ADM IN Attending Dr: Steven Zamora [...] Signed By Joshua Atwood DO 08/22 0906 [facility] ECH echo transthoracicon ECH echo transthoracic [facility] Main [place] [id number] Echocardiogram Signed Patient: Olaf Briones MR#: [id number] 2 : 1945 Acct:[id number] Age/Sex: 77 / M ADM Date: 08/20/22 Loc: Room: 3Z9797-8 Type: ADM IN Attending Dr: Steven Zamora [...] 08/22/22 0837 Signed By: Rojas Resendiz MD, [facility] 08/22/22 1514 Normal [facility] Eosinophils Auto (Bld) [#/Vo l]Ordered By: Steven Zamora on 08-22-2022 Eosinophils (Bld) [#/Vol] 0.1 10*3/uL 0.0-0.45 [facility] Eosinophils/100 WBC Auto (Bl d)Ordered By: Steven Zamora on 08-22-2022 Eosinophils/100 WBC (Bld) 1.6 % . [facility] Erythrocyte distribution wid th Auto (RBC) [Ratio]Ordered By: Steven Zamora on 08-22-2022 Erythrocyte distribution width (RBC) [Ratio] 13.7 % 12.0-14.8 [facility] Glucose [Mass/volume] in Ser um or PlasmaOrdered By: Steven Zamora on 08-22-2022 Glucose [Mass/Vol] 133 mg/dL 70-100 [facility] Comment on above: ADA recommended refe rence rangeRandom Glucose Reference Range is dependent on time and content of last meal. Glucose of more than 200 mg/dL in a nonstressed, ambulatory subject supports the diagnosis of Diabetes Mellitus. Hematocrit Auto (Bld) [Volum e fraction]Ordered By: Steven Zamora on 08-22-2022 Hematocrit (Bld) [Volume fraction] 41.1 % 38.8-50.0 [facility] Hemoglobin [Mass/volume] in BloodOrdered By: Steven Zamora on 08-22-2022 Hemoglobin (Bld) [Mass/Vol] 13.9 g/dL 13.0-17.0 [facility] Leukocytes [#/volume] correc betty for nucleated erythrocytes in Blood by Automated counOrdered By: Steven Zamora on 08-22-2022 WBC corrected for nucl RBC Auto (Bld) [#/Vol] 8.8 10*3/uL 4.1-10.5 [facility] Lymphocytes Auto (Bld) [#/Vo l]Ordered By: Steven Zamora on 08-22-2022 Lymphocytes (Bld) [#/Vol] 1.4 10*3/uL 1.00-4.8 [facility] Lymphocytes/100 WBC Auto (Bl d)Ordered By: Steven Zamora on 08-22-2022 Lymphocytes/100 WBC (Bld) 15.9 % . [facility] MCH Auto (RBC) [Entitic mass ]Ordered By: Steven Zamora on 08-22-2022 MCH (RBC) [Entitic mass] 31.5 pg 27.5-35.2 [facility] MCHC Auto (RBC) [Mass/Vol]Or dered By: Steven Zamora on 08-22-2022 MCHC (RBC) [Mass/Vol] 33.9 g/dL 32.5-35.6 [facility] MCV Auto (RBC) [Entitic vol] Ordered By: Steven Zamora on 08-22-2022 MCV (RBC) [Entitic vol] 92.8 fL 83.5-101 [facility] Monocytes Auto (Bld) [#/Vol] Ordered By: Steven Zamora on 08-22-2022 Monocytes (Bld) [#/Vol] 0.9 10*3/uL 0.0-0.8 [facility] Monocytes/100 WBC Auto (Bld) Ordered By: Steven Zamora on 08-22-2022 Monocytes/100 WBC (Bld) 9.7 % . [facility] Neutrophils Auto (Bld) [#/Vo l]Ordered By: Steven Zamora on 08-22-2022 Neutrophils (Bld) [#/Vol] 6.4 10*3/uL 1.8-7.7 [facility] Neutrophils/100 WBC Auto (Bl d)Ordered By: Steven Zamora on 08-22-2022 Neutrophils/100 WBC (Bld) 72.5 % . [facility] No Panel InformationOrdered By: Steven Zamora on 08-22-2022 Estimated GFR (CKD-EPI) > 60.0 mL/Min [facility] Creatinine Clearance (Chem 74.81 [facility] No Panel Informationon 08-22 0.0\S\0.0 Normal 0.0-0.2 -[facility] Heart-[facility]u eduardo 250 DO Work Phone: Comment on above: PERFORMED BY:[facility] [place] [id number] MEDICAL DIRECTORDREW REAL M.D. 0.1\S\0.1 Normal 0-0.5 -[facility] eduardo 250 DO Work Phone: 0.9\S\0.9 above high threshold 0.0-0.8 -[facility] eduardo 250 DO Work Phone: 1.4\S\1.4 Normal 1.00-4.8 -[facility] eduardo 250 DO Work Phone: [phone] 6.4\S\6.4 Normal 1.8-7.7 -[facility] eduardo 250 DO Work Phone: [phone] 0.3\S\0.3 Normal . [facility] eduardo 250 DO Work Phone: [phone] 1.6\S\1.6 Normal . [facility] eduardo 250 DO Work Phone: 9.7\S\9.7 Normal . [facility]-Sand[facility] eduarod 250 DO Work Phone: 15.9\S\15.9 Normal . [facility] eduardo 250 DO Work Phone: [phone] 72.5\S\72.5 Normal . [facility] eduardo 250 DO Work Phone: 9.6\S\9.6 Normal 6.6-10.1 [facility] eduardo 250 DO Work Phone: [phone] 162\S\162 Normal 150-450 [facility] DO Work Phone: 13.7\S\13.7 Normal 12.0-14.8 [facility] eduardo 250 DO Work Phone: 33.9\S\33.9 Normal 32.5-35.6 [facility] DO Work Phone: 31.5\S\31.5 Normal 27.5-35.2 [facility] DO Work Phone: 92.8\S\92.8 Normal 83.5-101 [facility]-Pepscanu eduardo 250 DO Work Phone: 41.1\S\41.1 Normal 38.8-50.0 [facility] eduardo 250 DO Work Phone: 13.9\S\13.9 Normal 13.0-17.0 [facility]Pepscanu eduardo 250 DO Work Phone: 4.43\S\4.43 Normal 3.90-5.60 [facility]Pepscanu eduardo 250 DO Work Phone: [phone] 8.8\S\8.8 Normal 4.1-10.5 [facility] DO Work Phone: [phone] > 60.0 Normal [facility] 250 DO Work Phone: [phone] 10.8\S\10.8 Normal 6.0-15.0 [facility]-Camacho eduardo 250 DO Work Phone: 74.81\S\74.81 Normal -[facility] Heart-Camacho clark 250 DO Work Phone: Comment on above: PERFORMED BY:[facility]REZ [id number] MEDICAL DIRECTORDREW REAL M.D. 9.0\S\9.0 Normal 8.6-10.3 [facility]-Camacho de souzay 250 DO Work Phone: 26.0\S\26.0 Normal 21.0-31.0 [facility] clark 250 DO Work Phone: 105\S\105 Normal 98-107 [facility] HeartCristy clark 250 DO Work Phone: 3.8\S\3.8 Normal 3.5-5.1 [facility] HeartCristy clark 250 DO Work Phone: 138\S\138 Normal 136-145 [facility] HeartCristy clark 250 DO Work Phone: 0.79\S\0.79 Normal 0.70-1.30 [facility] HeartCristy clark 250 DO Work Phone: 20\S\20 Normal 7-25 [facility] HeartCristy clark 250 DO Work Phone: 133\S\133 above high threshold 70-100 [facility] HeartCristy clark 250 DO Work Phone: [...] RBC Auto Ql (Bld) 0.1 /100{WBC} 0-0.5 [facility] Platelet mean volume Auto (B ld) [Entitic vol]Ordered By: Steven Zamora on 08-22-2022 Platelet mean volume (Bld) [Entitic vol] 9.6 fL 6.6-10.1 [facility] Platelets Auto (Bld) [#/Vol] Ordered By: Steven Zamora on 08-22-2022 Platelets (Bld) [#/Vol] 162 10*3/uL 150-450 [facility] Potassium [Moles/volume] in Serum or PlasmaOrdered By: Steven Zamora on 08-22-2022 Potassium [Moles/Vol] 3.8 mmol/L 3.5-5.1 [facility] RBC Auto (Bld) [#/Vol]Ordere d By: Steven Zamora on 08-22-2022 RBC (Bld) [#/Vol] 4.43 10*6/uL 3.90-5.60 [facility] Serum or plasma anion gap de terminationOrdered By: Steven Zamora on 08-22-2022 Anion gap [Moles/Vol] 10.8 mmol/L 6.0-15.0 [facility] Sodium [Moles/volume] in Ser um or PlasmaOrdered By: Steven Zamora on 08-22-2022 Sodium [Moles/Vol] 138 mmol/L 136-145 [facility] Urea nitrogen [Mass/volume] in Serum or PlasmaOrdered By: Steven Zamora on 08-22-2022 Urea nitrogen [Mass/Vol] 20 mg/dL 7-25 [facility] WBC Auto (Bld) [#/Vol]Ordere d By: Steven Zamora on 08-22-2022 WBC (Bld) [#/Vol] 8.8 10*3/uL 4.1-10.5 [facility] Basic Metabolic Panelon Anion gap [Moles/Vol] 11.7 mmol/L Normal 6.0-15.0 [facility] Comment on above: Performed By: #### H S TROP #### [address] Calcium [Mass/Vol] 9.4 mg/dL Normal 8.6-10.3 [facility] Comment on above: Performed By: #### H S TROP #### [facility] [address] [place] [address] [place] Chloride [Moles/Vol] 103 mmol/L Normal 98-107 [facility] Comment on above: Performed By: #### H S TROP #### [facility] [address] [place] [address] [place] CO2 [Moles/Vol] 27.1 mmol/L Normal 21.0-31.0 [facility] Comment on above: Performed By: #### H S TROP #### [facility] [address] [place] [address] [place] Creatinine [Mass/Vol] 0.71 mg/dL Normal 0.70-1.30 [facility] Comment on above: Performed By: #### H S TROP #### [place] [address] [place] Creatinine Clr Calc Pharmacy 74.81 [facility] Comment on above: Performed By: #### H S TROP #### [place] [address] [place] GFR/1.73 sq M.predicted MDRD (S/P/Bld) [Vol rate/Area] mL/min/{1.73_m2} [facility] Comment on above: Performed By: #### H S TROP #### [place] [address] [place] Glucose [Mass/Vol] 162 mg/dL High 70-100 [facility] Comment on above: Result Comment: [place] Glucose Reference Range is dependent on time and content of last meal. Glucose of more than 200 mg/dL in a nonstressed, ambulatory subject supports the diagnosis of Diabetes Mellitus. ADA recommended reference range Performed By: #### H S TROP #### [facility] [address] [place] [address] [place] Potassium [Moles/Vol] 3.8 mmol/L Normal 3.5-5.1 [facility] Comment on above: Performed By: #### H S TROP #### [place] [address] [place] Sodium [Moles/Vol] 138 mmol/L Normal 136-145 [facility] Comment on above: Performed By: #### H S TROP #### [facility] [address] Urea nitrogen [Mass/Vol] 12 mg/dL Normal 7-25 [facility] Comment on above: Performed By: #### H S TROP #### [facility] [address] [place] [address] [place] Cholesterol [Mass/volume] in Serum or PlasmaOrdered By: Steven Zamora on 08-21-2022 Cholesterol [Mass/Vol] 132 mg/dL 140-200 [facility] Comment on above: Chol less than 200 m g/dl low riskChol 201-239 mg/dl borderline riskChol 240 mg/dl and greater high risk Cholesterol in LDL Calc [Mas s/Vol]Ordered By: Steven Zamora on 08-21-2022 Cholesterol in LDL [Mass/Vol] 62 mg/dL 0-100 [facility] Comment on above: LDL ATP III CLASSIFI CATIONLDL less than 100 mg/dL OptimalLDL 100-129 mg/dL Near or above optimalLDL 130-159 mg/dL Borderline highLDL 160-189 mg/dL HighLDL greater than 189 mg/dL Very high Cholesterol in VLDL Calc [Ma ss/Vol]Ordered By: Steven Zamora on 08-21-2022 Cholesterol in VLDL [Mass/Vol] 24 mg/dL [facility] Complete Blood Count Auto Di ffon 08-21-2022 Basophils (Bld) [#/Vol] 0.0 10*3/uL Normal 0.0-0.2 [facility] Comment on above: Result Comment: PERF ORMED BY: [place] [address] PATHOLOGIST [employer] DREW REAL M.D. Performed By: #### H S TROP #### [facility] [address] [place] [address] [place] Basophils/100 WBC (Bld) 0.2 % Normal . [facility] Comment on above: Performed By: #### H S TROP #### [facility] [address] [place] [address] [place] Eosinophils (Bld) [#/Vol] 0.0 10*3/uL Normal 0.0-0.45 [facility] Comment on above: Performed By: #### H S TROP #### [address] Eosinophils/100 WBC (Bld) 0.1 % Normal . [facility] Comment on above: Performed By: #### H S TROP #### [address] Erythrocyte distribution width (RBC) [Ratio] 13.5 % Normal 12.0-14.8 [facility] Comment on above: Performed By: #### H S TROP #### [address] Hematocrit (Bld) [Volume fraction] 42.7 % Normal 38.8-50.0 [facility] Comment on above: Performed By: #### H S TROP #### [address] Hemoglobin (Bld) [Mass/Vol] 14.6 g/dL Normal 13.0-17.0 [facility] Comment on above: Performed By: #### H S TROP #### [address] Lymphocytes (Bld) [#/Vol] 1.1 10*3/uL Normal 1.00-4.8 [facility] Comment on above: Performed By: #### H S TROP #### [address] Lymphocytes/100 WBC (Bld) 8.2 % Normal . [facility] Comment on above: Performed By: #### H S TROP #### [address] MCH (RBC) [Entitic mass] 31.4 pg Normal 27.5-35.2 [facility] Comment on above: Performed By: #### H S TROP #### [address] MCV (RBC) [Entitic vol] 91.6 fL Normal 83.5-101 [facility] Comment on above: Performed By: #### H S TROP #### [facility] [address] Mean Corpuscular HGB Conc 34.3 g/dL Normal 32.5-35.6 [facility] Comment on above: Performed By: #### H S TROP #### [facility] [address] [place] [address] [place] Monocytes (Bld) [#/Vol] 0.8 10*3/uL Normal 0.0-0.8 [facility] Comment on above: Performed By: #### H S TROP #### [address] Monocytes/100 WBC (Bld) 6.1 % Normal . [facility] Comment on above: Performed By: #### H S TROP #### [address] Neutrophils (Bld) [#/Vol] 11.7 10*3/uL High 1.8-7.7 [facility] Comment on above: Performed By: #### H S TROP #### [place] [address] [place] Neutrophils/100 WBC (Bld) 85.4 % Normal . [facility] Comment on above: Performed By: #### H S TROP #### [place] [address] [place] NRBC% 0.0 /100{WBC} Normal 0-0.5 [facility] Comment on above: Performed By: #### H S TROP #### [place] [address] [place] Platelet mean volume (Bld) [Entitic vol] 9.5 fL Normal 6.6-10.1 [facility] Comment on above: Performed By: #### H S TROP #### [facility] [address] [place] [address] [place] Platelets (Bld) [#/Vol] 171 10*3/uL Normal 150-450 [facility] Comment on above: Performed By: #### H S TROP #### [facility] [address] [place] [address] [place] RBC (Bld) [#/Vol] 4.66 10*6/uL Normal 3.90-5.60 [facility] Comment on above: Performed By: #### H S TROP #### [facility] [address] [place] [id number] [place] WBC (Bld) [#/Vol] 13.6 10*3/uL High 4.1-10.5 [facility] Comment on above: Performed By: #### H S TROP #### [facility] [address] ECG 12 lead ECGon 08-21-2022 ECG 12 lead ECG [facility] Main [place] [address] [place] [address] Electrocardiograph Report Signed Patient: Olaf Briones MR#: [id number] 2 : 1945 Acct:[id number] Age/Sex: 77 / M ADM Date: 08/20/22 Loc: Room: [address] [place] [address] Type: [facility] Attending Dr: Steven Zamora DO Ordering Provider: [...] By Joshua Atwood DO 08/21 0917 Normal [facility] Glucose Glucometer (BldC) [M ass/Vol]Ordered By: Steven Zamora on 08-21-2022 Glucose [Mass/Vol] 121 mg/dL [facility] Comment on above: Random Glucose Refer ence Range is dependent on time and content of last meal. Glucose of more than 200 mg/dL in a nonstressed, ambulatory subject supports the diagnosis of Diabetes Mellitus. Glucose Poct Glucometerson 0 08-21-2022 Commemt1 Glu2: Cleaned Meter [facility] Comment on above: Result Comment: PERF ORMED BY: [place] [address] PATHOLOGIST [employer] DREW REAL M.D. Performed By: #### H S TROP #### [address] Glucose [Mass/Vol] 121 mg/dL Normal [facility] Comment on above: Result Comment: [place] om Glucose Reference Range is dependent on time and content of last meal. Glucose of more than 200 mg/dL in a nonstressed, ambulatory subject supports the diagnosis of Diabetes Mellitus. Performed By: #### H S TROP #### [address] Commemt1 Glu2: Cleaned Meter [facility] Comment on above: Result Comment: PERF ORMED BY: [place] [address] PATHOLOGIST [employer] DREW REAL M.D. Performed By: #### H S TROP #### [address] Glucose [Mass/Vol] 137 mg/dL Normal [facility] Comment on above: Result Comment: [place] om Glucose Reference Range is dependent on time and content of last meal. Glucose of more than 200 mg/dL in a nonstressed, ambulatory subject supports the diagnosis of Diabetes Mellitus. Performed By: #### H S TROP #### [address] Laboratory - Chemistry and C hemistry - challengeon 08-21-2022 Cholesterol [Mass/Vol] 132\S\132 below low threshold 140-200 [facility] eduardo 250 DO Work Phone: Comment on above: Chol less than 200 m g/dl low risk Chol 201-239 mg/dl borderline risk Chol 240 mg/dl and greater high risk Cholesterol in LDL [Mass/Vol] 62\S\62 Normal 0-100 [facility] [employer] eduardo 250 DO Work Phone: Comment on above: LDL ATP III CLASSIFI CATION LDL less than 100 mg/dL Optimal LDL 100-129 mg/dL Near or above optimal LDL 130-159 mg/dL Borderline high LDL 160-189 mg/dL High LDL greater than 189 mg/dL Very high Lipid Panelon 08-21-2022 Cholesterol [Mass/Vol] 132 mg/dL Low 140-200 [facility] Comment on above: Result Comment: Chol less than 200 mg/dl low risk Chol 201-239 mg/dl borderline risk Chol 240 mg/dl and greater high risk Performed By: #### H S TROP #### [facility] [address] [place] [id number] [place] Cholesterol in HDL [Mass/Vol] 45 mg/dL Normal 23-92 [facility] Comment on above: Result Comment: HDL CHOL ATP-III CLASSIFICATION Cardiovascular Risk HDL > or equal to 60 mg/dL LOW HDL < 40 mg/dL HIGH Performed By: #### H S TROP #### [facility] [address] [place] [id number] [place] Cholesterol.total/Reny sterol in HDL [Mass ratio] 2.9 {ratio} Normal <5.0 [facility] Comment on above: Result Comment: PERF ORMED BY: [facility] [address] [place] [id number] PATHOLOGIST [employer] DREW REAL M.D. Performed By: #### H S TROP #### [facility] [address] [place] [id number] [place] LDL Cholesterol,Calculated 62 mg/dL Normal 0-100 [facility] Comment on above: Result Comment: LDL ATP III CLASSIFICATION LDL less than 100 mg/dL Optimal LDL 100-129 mg/dL Near or above optimal LDL 130-159 mg/dL Borderline high LDL 160-189 mg/dL High LDL greater than 189 mg/dL Very high Performed By: #### H S TROP #### [facility] [address] Triglyceride w/Reflex 124 mg/dL Normal 0-149 [facility] Comment on above: Result Comment: TRIG ATP III CLASSIFICATION TRIG less than 150 mg/dL Normal TRIG 150-199 mg/dL Borderline high TRIG 200-500 mg/dL High TRIG greater than 500 mg/dL Very high Standard traceable to the Center for Disease Conrtrol and Prevention (CDC) test method. Performed By: #### H S TROP #### [facility] [address] VLDL CHOLESTEROL 24 mg/dL Normal [facility] Comment on above: Performed By: #### H S TROP #### [facility] [address] No Panel InformationOrdered By: Steven Zamora on 08-21-2022 Bedside Glucose Comment Glu2: cleaned meter [facility] No Panel Informationon 08-21 Glu2: Cleaned Meter Normal [facility] [place] [facility] eduardo 250 DO Work Phone: Comment on above: PERFORMED BY:[place] [address] [place], [place] [phone] MEDICAL DIRECTORDREW REAL M.D. 121\S\121 Normal -[facility] eduardo 250 DO Work Phone: Comment on above: Random Glucose Refer ence Range is dependent on time and content of last meal. Glucose of more than 200 mg/dL in a nonstressed, ambulatory subject supports the diagnosis of Diabetes Mellitus. Glu2: Cleaned Meter Normal [facility] [place] [facility] eduardo 250 DO Work Phone: Comment on above: PERFORMED BY:[place] [address] [place], [place] [id number] MEDICAL DIRECTORDREW REAL M.D. 137\S\137 Normal [facility] eduardo 250 DO Work Phone: Comment on above: Random Glucose Refer ence Range is dependent on time and content of last meal. Glucose of more than 200 mg/dL in a nonstressed, ambulatory subject supports the diagnosis of Diabetes Mellitus. 0.0\S\0.0 Normal 0-0.5 [facility] eduardo 250 DO Work Phone: Comment on above: PERFORMED BY:[place] [address] [place] [place], [place] [phone] MEDICAL DIRECTORDREW REAL M.D. 0.8\S\0.8 Normal 0.0-0.8 [facility] eduardo 250 DO Work Phone: [phone] 1.1\S\1.1 Normal 1.00-4.8 [facility] eduardo 250 DO Work Phone: [phone] 11.7\S\11.7 Normal 6.0-15.0 [facility] eduardo 250 DO Work Phone: [phone] 0.2\S\0.2 Normal . [facility] eduardo 250 DO Work Phone: [phone] 0.1\S\0.1 Normal . [facility] eduardo 250 DO Work Phone: 6.1\S\6.1 Normal . [facility] eduardo 250 DO Work Phone: [phone] 8.2\S\8.2 Normal . [facility] eduardo 250 DO Work Phone: [phone] 85.4\S\85.4 Normal . [facility] eduardo 250 DO Work Phone: [phone] 9.5\S\9.5 Normal 6.6-10.1 [facility] eduardo 250 DO Work Phone: [phone] 171\S\171 Normal 150-450 [facility] eduardo 250 DO Work Phone: [phone] 13.5\S\13.5 Normal 12.0-14.8 [facility] DO Work Phone: [phone] 34.3\S\34.3 Normal 32.5-35.6 [facility] 250 DO Work Phone: [phone] 31.4\S\31.4 Normal 27.5-35.2 [facility] eduardo 250 DO Work Phone: [phone] 91.6\S\91.6 Normal 83.5-101 [facility] 250 DO Work Phone: [phone] 42.7\S\42.7 Normal 38.8-50.0 [facility] eduardo 250 DO Work Phone: [phone] 14.6\S\14.6 Normal 13.0-17.0 [facility] eduardo 250 DO Work Phone: [phone] 4.66\S\4.66 Normal 3.90-5.60 [facility] eduardo 250 DO Work Phone: [phone] 13.6\S\13.6 above high threshold 4.1-10.5 [facility] eduardo 250 DO Work Phone: [phone] > 60.0 Normal [facility] eduardo 250 DO Work Phone: [phone] 74.81\S\74.81 Normal [facility] eduardo 250 DO Work Phone: [phone] 9.4\S\9.4 Normal 8.6-10.3 [facility] eduardo 250 DO Work Phone: [phone] 27.1\S\27.1 Normal 21.0-31.0 [facility] eduardo 250 DO Work Phone: [phone] 103\S\103 Normal 98-107 [facility] eduardo 250 DO Work Phone: [phone] 3.8\S\3.8 Normal 3.5-5.1 [facility] eduardo 250 DO Work Phone: 138\S\138 Normal 136-145 [facility] Carter Adams DO Work Phone: 0.71\S\0.71 Normal 0.70-1.30 [facility] Carter Adams DO Work Phone: 12\S\12 Normal 7-25 [facility] Carter Adams DO Work Phone: 162\S\162 above high threshold 70-100 [facility] Carter Adams DO Work Phone: Comment on above: Random Glucose Refer ence Range is dependent on time and content of last meal. Glucose of more than 200 mg/dL in a nonstressed, ambulatory subject supports the diagnosis of Diabetes Mellitus. ADA recommended reference range 2.9\S\2.9 Normal <5.0 [facility] Carter Adams DO Work Phone: Comment on above: PERFORMED BY:[facility] [place] [phone] MEDICAL DIRECTORDREW REAL M.D. 24\S\24 Normal [facility] Carter Adams DO Work Phone: 124\S\124 Normal 0-149 [facility] Carter Adams DO Work Phone: Comment on above: TRIG ATP III CLASSIF ICATION TRIG less than 150 mg/dL Normal TRIG 150-199 mg/dL Borderline high TRIG 200-500 mg/dL High TRIG greater than 500 mg/dL Very high Standard traceable to the Center for Disease Conrtrol and Prevention (CDC) test method. 45\S\45 Normal 23-92 [facility] Carter Adams DO Work Phone: Comment on above: HDL CHOL ATP-III CLA SSIFICATION Cardiovascular Risk HDL > or equal to 60 mg/dL LOW HDL < 40 mg/dL HIGH 22596.9\S\91444.9 Critically high 0.0-20.0 [facility] 250 DO Work Phone: Comment on above: Critical Result : Ca lled to and read back by: MARC BUSTILLOS at: 08/21/2022 06:30:29 by:[id number] BY:[address] [place], [place] [id number] MEDICAL DIRECTORDREW REAL M.D. 25772.9\S\71152.9 Critically high 0.0-20.0 [facility] 250 DO Work Phone: Comment on above: Critical Result : Ca lled to and read back by: RIDGE WATERS at: 08/21/2022 04:23:36 by:[id number] BY:[address] [place], [place] [id number] MEDICAL DIRECTORDREW REAL M.D. 37610.3\S\16609.3 Critically high 0.0-20.0 [facility] 250 DO Work Phone: Comment on above: Critical Result : Ca lled to and read back by: SALLY BUSTILLOS at: 08/21/2022 00:52:26 by:[id number] BY:[address] [place], [place] [phone] MEDICAL DIRECTORDREW REAL M.D. Serum or plasma high density lipoprotein (HDL) cholesterol measurementOrdered By: Steven Zamora on 08-21-2022 Cholesterol in HDL [Mass/Vol] 45 mg/dL 23-92 [facility] Comment on above: HDL CHOL ATP-III CLA SSIFICATION Cardiovascular RiskHDL > or equal to 60 mg/dL LOWHDL < 40 mg/dL HIGH Serum or plasma total choles terol/high density lipoprotein (HDL) cholesterol mass ratOrdered By: Steven Zamora on 08-21-2022 Cholesterol.total/Reny sterol in HDL [Mass ratio] 2.9 {ratio} <5.0 [facility] Triglyceride [Mass/volume] i n Serum or PlasmaOrdered By: Steven Zamora on 08-21-2022 Triglyceride [Mass/Vol] 124 mg/dL 0-149 [facility] Comment on above: TRIG ATP III CLASSIF ICATIONTRIG less than 150 mg/dL NormalTRIG 150-199 mg/dL Borderline highTRIG 200-500 mg/dL High TRIG greater than 500 mg/dL Very highStandard traceable to the Center for Disease Conrtrol and Prevention (CDC) test method. Troponin I High Sensitivityo n 08-21-2022 Troponin I High Sensitivity 73780.9 pg/mL Off scale high 0.0-20.0 [facility] Comment on above: Result Comment: Crit ical Result : Called to and read back by: MARC BUSTILLOS at: 08/21/2022 06:30:29 by:[id number] PERFORMED BY: [place] [address] PATHOLOGIST [employer] DREW REAL M.D. Performed By: #### H S TROP #### [facility] [address] [place] [address] Troponin I High Sensitivity 73015.9 pg/mL Off scale high 0.0-20.0 [facility] Comment on above: Result Comment: Crit ical Result : Called to and read back by: RIDGE WATERS at: 08/21/2022 04:23:36 by:[id number] PERFORMED BY: [place] [address] PATHOLOGIST [employer] DREW REAL M.D. Performed By: #### H S TROP #### [address] Troponin I High Sensitivity 17504.3 pg/mL Off scale high 0.0-20.0 [facility] Comment on above: Result Comment: Crit ical Result : Called to and read back by: SALLY BUSTILLOS at: 08/21/2022 00:52:26 by:[id number] PERFORMED BY: [place] [address] PATHOLOGIST [employer] DREW REAL M.D. Performed By: #### H S TROP #### [facility] [address] Troponin I.cardiac [Mass/vol ume] in Serum or Plasma by Detection limit <= 0.01 ng/Ordered By: Steven Zamora on 08-21-2022 Troponin I.cardiac DL <= 0.01 ng/mL [Mass/Vol] 56866.9 pg/mL 0.0-20.0 [facility] Comment on above: Critical Result : Ca lled to and read back by: MARC BUSTILLOS at: 08/21/2022 06:30:29 by:[id number] Activated partial thrombopla stin time (aPTT) in platelet poor plasma by coagulation aOrdered By: Cirilo Wise on 08-20-2022 aPTT Coag (PPP) [Time] 25.1 s 25.1-36.5 [facility] B-Type Natriuretic Peptideon 08-20-2022 Natriuretic peptide B (Bld) [Mass/Vol] 24.0 pg/mL Normal 5-100 [facility] Comment on above: Result Comment: PERF ORMED BY: [place] [address] PATHOLOGIST [employer] DREW REAL M.D. Performed By: #### B RIGGER UP, CK, CBC, HS TROP, BMP, PT, PTT #### [address] Basic Metabolic Panelon 07-0 Anion gap [Moles/Vol] 14.1 mmol/L Normal 6.0-15.0 [facility] Comment on above: Performed By: #### B RIGGER UP, CK, CBC, HS TROP, BMP, PT, PTT #### [facility] [address] Calcium [Mass/Vol] 9.4 mg/dL Normal 8.6-10.3 [facility] Comment on above: Performed By: #### B RIGGER UP, CK, CBC, HS TROP, BMP, PT, PTT #### [address] Chloride [Moles/Vol] 105 mmol/L Normal 98-107 [facility] Comment on above: Performed By: #### B RIGGER UP, CK, CBC, HS TROP, BMP, PT, PTT #### [facility] [address] CO2 [Moles/Vol] 24.3 mmol/L Normal 21.0-31.0 [facility] Comment on above: Performed By: #### B RIGGER UP, CK, CBC, HS TROP, BMP, PT, PTT #### [facility] [address] Creatinine [Mass/Vol] 0.92 mg/dL Normal 0.70-1.30 [facility] Comment on above: Performed By: #### B RIGGER UP, CK, CBC, HS TROP, BMP, PT, PTT #### [facility] [address] Creatinine Clr Calc Pharmacy 65.05 [facility] Comment on above: Result Comment: PERF ORMED BY: [place] [address] PATHOLOGIST [employer] DREW REAL M.D. Performed By: #### B RIGGER UP, CK, CBC, HS TROP, BMP, PT, PTT #### [address] GFR/1.73 sq M.predicted MDRD (S/P/Bld) [Vol rate/Area] mL/min/{1.73_m2} [facility] Comment on above: Performed By: #### B RIGGER UP, CK, CBC, HS TROP, BMP, PT, PTT #### [facility] [address] Glucose [Mass/Vol] 172 mg/dL High 70-100 [facility] Comment on above: Result Comment: [place] Glucose Reference Range is dependent on time and content of last meal. Glucose of more than 200 mg/dL in a nonstressed, ambulatory subject supports the diagnosis of Diabetes Mellitus. ADA recommended reference range Performed By: #### B RIGGER UP, CK, CBC, HS TROP, BMP, PT, PTT #### [facility] [address] Potassium [Moles/Vol] 3.4 mmol/L Low 3.5-5.1 [facility] Comment on above: Performed By: #### B RIGGER UP, CK, CBC, HS TROP, BMP, PT, PTT #### [facility] [address] Sodium [Moles/Vol] 140 mmol/L Normal 136-145 [facility] Comment on above: Performed By: #### B RIGGER UP, CK, CBC, HS TROP, BMP, PT, PTT #### [facility] [address] Urea nitrogen [Mass/Vol] 15 mg/dL Normal 7-25 [facility] Comment on above: Performed By: #### B RIGGER UP, CK, CBC, HS TROP, BMP, PT, PTT #### [facility] [address] Basophils Auto (Bld) [#/Vol] Ordered By: Cirilo Wise on 08-20-2022 Basophils (Bld) [#/Vol] 0.1 10*3/uL 0.0-0.2 [facility] Basophils/100 WBC Auto (Bld) Ordered By: Cirilo Wise on 08-20-2022 Basophils/100 WBC (Bld) 0.5 % . [facility] Calcium [Mass/volume] in Ser um or PlasmaOrdered By: Cirilo Wise on 08-20-2022 Calcium [Mass/Vol] 9.4 mg/dL 8.6-10.3 [facility] Carbon dioxide, total [Moles /volume] in Serum or PlasmaOrdered By: Cirilo Wise on 08-20-2022 CO2 [Moles/Vol] 24.3 mmol/L 21.0-31.0 [facility] Chloride [Moles/volume] in S jamin or PlasmaOrdered By: Cirilo Wise on 08-20-2022 Chloride [Moles/Vol] 105 mmol/L 98-107 [facility] Complete Blood Count Auto Di ffon 08-20-2022 Basophils (Bld) [#/Vol] 0.1 10*3/uL Normal 0.0-0.2 [facility] Comment on above: Result Comment: PERF ORMED BY: [place] [address] PATHOLOGIST [employer] DREW REAL M.D. Performed By: #### B RIGGER UP, CK, CBC, HS TROP, BMP, PT, PTT #### [address] Basophils/100 WBC (Bld) 0.5 % Normal . [facility] Comment on above: Performed By: #### B RIGGER UP, CK, CBC, HS TROP, BMP, PT, PTT #### [address] Eosinophils (Bld) [#/Vol] 0.1 10*3/uL Normal 0.0-0.45 [facility] Comment on above: Performed By: #### B RIGGER UP, CK, CBC, HS TROP, BMP, PT, PTT #### [address] Eosinophils/100 WBC (Bld) 1.3 % Normal . [facility] Comment on above: Performed By: #### B RIGGER UP, CK, CBC, HS TROP, BMP, PT, PTT #### [address] Erythrocyte distribution width (RBC) [Ratio] 13.6 % Normal 12.0-14.8 [facility] Comment on above: Performed By: #### B RIGGER UP, CK, CBC, HS TROP, BMP, PT, PTT #### [address] Hematocrit (Bld) [Volume fraction] 44.0 % Normal 38.8-50.0 [facility] Comment on above: Performed By: #### B RIGGER UP, CK, CBC, HS TROP, BMP, PT, PTT #### [address] Hemoglobin (Bld) [Mass/Vol] 15.1 g/dL Normal 13.0-17.0 [facility] Comment on above: Performed By: #### B RIGGER UP, CK, CBC, HS TROP, BMP, PT, PTT #### [address] Lymphocytes (Bld) [#/Vol] 2.8 10*3/uL Normal 1.00-4.8 [facility] Comment on above: Performed By: #### B RIGGER UP, CK, CBC, HS TROP, BMP, PT, PTT #### [address] Lymphocytes/100 WBC (Bld) 26.2 % Normal . [facility] Comment on above: Performed By: #### B RIGGER UP, CK, CBC, HS TROP, BMP, PT, PTT #### [address] MCH (RBC) [Entitic mass] 32.1 pg Normal 27.5-35.2 [facility] Comment on above: Performed By: #### B RIGGER UP, CK, CBC, HS TROP, BMP, PT, PTT #### [address] MCV (RBC) [Entitic vol] 93.4 fL Normal 83.5-101 [facility] Comment on above: Performed By: #### B RIGGER UP, CK, CBC, HS TROP, BMP, PT, PTT #### [address] Mean Corpuscular HGB Conc 34.4 g/dL Normal 32.5-35.6 [facility] Comment on above: Performed By: #### B RIGGER UP, CK, CBC, HS TROP, BMP, PT, PTT #### [address] Monocytes (Bld) [#/Vol] 0.9 10*3/uL High 0.0-0.8 [facility] Comment on above: Performed By: #### B RIGGER UP, CK, CBC, HS TROP, BMP, PT, PTT #### [address] Monocytes/100 WBC (Bld) 16.35 % Normal 0.00-20.00 [facility] Comment on above: Performed By: #### B RIGGER UP, CK, CBC, HS TROP, BMP, PT, PTT #### [facility] [address] [place] [address] [place] Monocytes/100 WBC (Bld) 7.9 % Normal . [facility] Comment on above: Performed By: #### B RIGGER UP, CK, CBC, HS TROP, BMP, PT, PTT #### [facility] [address] [place] [address] [place] Neutrophils (Bld) [#/Vol] 6.9 10*3/uL Normal 1.8-7.7 [facility] Comment on above: Performed By: #### B RIGGER UP, CK, CBC, HS TROP, BMP, PT, PTT #### [address] Neutrophils/100 WBC (Bld) 64.1 % Normal . [facility] Comment on above: Performed By: #### B RIGGER UP, CK, CBC, HS TROP, BMP, PT, PTT #### [address] NRBC% 0.1 /100{WBC} Normal 0-0.5 [facility] Comment on above: Performed By: #### B RIGGER UP, CK, CBC, HS TROP, BMP, PT, PTT #### [address] Platelet mean volume (Bld) [Entitic vol] 9.7 fL Normal 6.6-10.1 [facility] Comment on above: Performed By: #### B RIGGER UP, CK, CBC, HS TROP, BMP, PT, PTT #### [place] [address] [place] Platelets (Bld) [#/Vol] 215 10*3/uL Normal 150-450 [facility] Comment on above: Performed By: #### B RIGGER UP, CK, CBC, HS TROP, BMP, PT, PTT #### [place] [address] [place] RBC (Bld) [#/Vol] 4.71 10*6/uL Normal 3.90-5.60 [facility] Comment on above: Performed By: #### B RIGGER UP, CK, CBC, HS TROP, BMP, PT, PTT #### [address] WBC (Bld) [#/Vol] 10.7 10*3/uL High 4.1-10.5 [facility] Comment on above: Performed By: #### B RIGGER UP, CK, CBC, HS TROP, BMP, PT, PTT #### [address] Creatine Kinaseon 08-20-2022 CK [Catalytic activity/Vol] 115 U/L Normal [facility] Comment on above: Performed By: #### B RIGGER UP, CK, CBC, HS TROP, BMP, PT, PTT #### [address] Creatine kinase [Enzymatic a ctivity/volume] in Serum or PlasmaOrdered By: Cirilo Wise on 08-20-2022 CK [Catalytic activity/Vol] 115 U/L [facility] Creatinine [Mass/volume] in Serum or PlasmaOrdered By: Cirilo Wise on 08-20-2022 Creatinine [Mass/Vol] 0.92 mg/dL 0.70-1.30 [facility] ECG 12 lead ECGon 08-20-2022 ECG 12 lead ECG [facility] Main [place] [address] [place] [address] Electrocardiograph Report Signed Patient: Olaf Briones MR#: [id number] 2 : 1945 Acct:[id number] Age/Sex: 77 / M ADM Date: 08/20/22 Loc: Room: [address] [place] [address] Type: REG [facility] Attending Dr: Steven Zamora DO Ordering Provider: [...] , age undetermined Inferior injury pattern ACUTE CT / STEMI Consider right ventricular involvement in acute inferior infarct Abnormal ECG No previous ECGs available Confirmed by SHANNON COCHRAN DO ([id number]) on 08/21/2022 2:06:14 AM Referred By: Electronically Signed By:SHANNON COCHRAN DO Transcribed By: MUS Signed By Shannon Cochran DO 08/21 0206 Normal [facility] Eosinophils Auto (Bld) [#/Vo l]Ordered By: Cirilo Wise on 08-20-2022 Eosinophils (Bld) [#/Vol] 0.1 10*3/uL 0.0-0.45 [facility] Eosinophils/100 WBC Auto (Bl d)Ordered By: Cirilo Wise on 08-20-2022 Eosinophils/100 WBC (Bld) 1.3 % . [facility] Erythrocyte distribution wid th Auto (RBC) [Ratio]Ordered By: Cirilo Wise on 08-20-2022 Erythrocyte distribution width (RBC) [Ratio] 13.6 % 12.0-14.8 [facility] Glucose [Mass/volume] in Ser um or PlasmaOrdered By: Cirilo Wise on 08-20-2022 Glucose [Mass/Vol] 172 mg/dL 70-100 [facility] Comment on above: ADA recommended refe rence rangeRandom Glucose Reference Range is dependent on time and content of last meal. Glucose of more than 200 mg/dL in a nonstressed, ambulatory subject supports the diagnosis of Diabetes Mellitus. Hematocrit Auto (Bld) [Volum e fraction]Ordered By: Cirilo Wise on 08-20-2022 Hematocrit (Bld) [Volume fraction] 44.0 % 38.8-50.0 [facility] Hemoglobin [Mass/volume] in BloodOrdered By: Cirilo Wise on 08-20-2022 Hemoglobin (Bld) [Mass/Vol] 15.1 g/dL 13.0-17.0 [facility] Laboratory - CoagulationOrde red By: Cirilo Wise on 08-20-2022 PT Coag (PPP) [Time] 11.4 s 9.0-12.9 [facility] Leukocytes [#/volume] correc betty for nucleated erythrocytes in Blood by Automated counOrdered By: Cirilo Wise on 08-20-2022 WBC corrected for nucl RBC Auto (Bld) [#/Vol] 10.7 10*3/uL 4.1-10.5 [facility] Lymphocytes Auto (Bld) [#/Vo l]Ordered By: Cirilo Wise on 08-20-2022 Lymphocytes (Bld) [#/Vol] 2.8 10*3/uL 1.00-4.8 [facility] Lymphocytes/100 WBC Auto (Bl d)Ordered By: Cirilo Wise on 08-20-2022 Lymphocytes/100 WBC (Bld) 26.2 % . [facility] MCH Auto (RBC) [Entitic mass ]Ordered By: Cirilo Wise on 08-20-2022 MCH (RBC) [Entitic mass] 32.1 pg 27.5-35.2 [facility] MCHC Auto (RBC) [Mass/Vol]Or dered By: Cirilo Wise on 08-20-2022 MCHC (RBC) [Mass/Vol] 34.4 g/dL 32.5-35.6 [facility] MCV Auto (RBC) [Entitic vol] Ordered By: Cirilo Wise on 08-20-2022 MCV (RBC) [Entitic vol] 93.4 fL 83.5-101 [facility] Monocyte distribution width [Entitic volume] in Blood by AutomatedOrdered By: Cirilo Wise on 08-20-2022 Monocyte distribution width Auto (Bld) [Entitic vol] 16.35 % 0.00-20.00 [facility] Monocytes Auto (Bld) [#/Vol] Ordered By: Cirilo Wise on 08-20-2022 Monocytes (Bld) [#/Vol] 0.9 10*3/uL 0.0-0.8 [facility] Monocytes/100 WBC Auto (Bld) Ordered By: Cirilo Wise on 08-20-2022 Monocytes/100 WBC (Bld) 7.9 % . [facility] Natriuretic peptide B [Mass/ Vol]Ordered By: Cirilo Wise on 08-20-2022 Natriuretic peptide B (Bld) [Mass/Vol] 24.0 pg/mL 5-100 [facility] Neutrophils Auto (Bld) [#/Vo l]Ordered By: Cirilo Wise on 08-20-2022 Neutrophils (Bld) [#/Vol] 6.9 10*3/uL 1.8-7.7 [facility] Neutrophils/100 WBC Auto (Bl d)Ordered By: Cirilo Wise on 08-20-2022 Neutrophils/100 WBC (Bld) 64.1 % . [facility] No Panel Informationon 08-20 2529.3\S\2529.3 Critically high 0.0-20.0 [facility] eduardo 250 DO Work Phone: Comment on above: Critical Result : Ca lled to and read back by: ARY BUSTILLOS at: 08/20/2022 19:45:52 by:[id number] BY:[facility] [facility], [place] [phone] MEDICAL DIRECTORDREW REAL M.D. No Panel InformationOrdered By: Cirilo Wise on 08-20-2022 Estimated GFR (CKD-EPI) > 60.0 mL/Min [facility] Creatinine Clearance (Chem 65.05 [facility] Nucleated erythrocytes [Pres ence] in Blood by Automated countOrdered By: Cirilo Wise on 08-20-2022 Nucleated RBC Auto Ql (Bld) 0.1 /100{WBC} 0-0.5 [facility] Partial Thromboplastin Timeo n 08-20-2022 aPTT Coag (Bld) [Time] 25.1 s Normal 25.1-36.5 [facility] Comment on above: Result Comment: PERF ORMED BY: [facility] [address] [place] [address] PATHOLOGIST [employer] DREW REAL M.D. Performed By: #### B RIGGER UP, CK, CBC, HS TROP, BMP, PT, PTT #### [facility] [address] [place] [address] [facility] Platelet mean volume Auto (B ld) [Entitic vol]Ordered By: Cirilo Wise on 08-20-2022 Platelet mean volume (Bld) [Entitic vol] 9.7 fL 6.6-10.1 [facility] Platelet poor plasma interna tional normalized ratio (INR) by coagulation assay (relatOrdered By: Cirilo Wise on 08-20-2022 INR Coag (PPP) [Relative time] 1.0 {INR} [facility] Comment on above: INR Therapeutic Rang [...] 08-20-2022 Platelets (Bld) [#/Vol] 215 10*3/uL 150-450 [facility] Potassium [Moles/volume] in Serum or PlasmaOrdered By: Cirilo Wise on 08-20-2022 Potassium [Moles/Vol] 3.4 mmol/L 3.5-5.1 [facility] Prothrombin Time INRon 08-20 INR Coag (PPP) [Relative time] 1.0 {INR} Normal [facility] Comment on above: Result Comment: INR [...] 3 - 4.5 Performed By: #### B RIGGER UP, CK, CBC, HS TROP, BMP, PT, PTT #### [facility] [address] PT Coag (PPP) [Time] 11.4 s Normal 9.0-12.9 [facility] Comment on above: Performed By: #### B RIGGER UP, CK, CBC, HS TROP, BMP, PT, PTT #### [place] [address] RBC Auto (Bld) [#/Vol]Ordere d By: Cirilo Wise on 08-20-2022 RBC (Bld) [#/Vol] 4.71 10*6/uL 3.90-5.60 [facility] Serum or plasma anion gap de terminationOrdered By: Cirilo Wise on 08-20-2022 Anion gap [Moles/Vol] 14.1 mmol/L 6.0-15.0 [facility] Sodium [Moles/volume] in Ser um or PlasmaOrdered By: Cirilo Wise on 08-20-2022 Sodium [Moles/Vol] 140 mmol/L 136-145 [facility] Troponin I High Sensitivityo n 08-20-2022 Troponin I High Sensitivity 9010.4 pg/mL Off scale high 0.0-20.0 [facility] Comment on above: Result Comment: Crit ical Result : Called to and read back by: ARY BUSTILLOS at: 08/20/2022 22:35:19 by:[id number] PERFORMED BY: [place] [address] PATHOLOGIST [employer] DREW REAL M.D. Performed By: #### H S TROP #### [address] Troponin I High Sensitivity 2529.3 pg/mL Off scale high 0.0-20.0 [facility] Comment on above: Result Comment: Crit ical Result : Called to and read back by: ARY BUSTILLOS at: 08/20/2022 19:45:52 by:[id number] PERFORMED BY: [place] [address] PATHOLOGIST [employer] DREW REAL M.D. Performed By: #### H S TROP #### [address] Troponin I High Sensitivity 366.3 pg/mL Off scale high 0.0-20.0 [facility] Comment on above: Result Comment: Crit ical Result : Called to and read back by: SHANNON FERREIRA at: 08/20/2022 17:43:14 by:[id number] PERFORMED BY: [place] [address] PATHOLOGIST [employer] DREW REAL M.D. Performed By: #### H S TROP #### [address] Troponin I.cardiac [Mass/vol ume] in Serum or Plasma by Detection limit <= 0.01 ng/Ordered By: Cirilo Wise on 08-20-2022 Troponin I.cardiac DL <= 0.01 ng/mL [Mass/Vol] 366.3 pg/mL 0.0-20.0 [facility] Comment on above: Critical Result : Ca lled to and read back by: SHANNON FERREIRA at: 08/20/2022 17:43:14 by:[id number] Urea nitrogen [Mass/volume] in Serum or PlasmaOrdered By: Cirilo Wise on 08-20-2022 Urea nitrogen [Mass/Vol] 15 mg/dL 7-25 [facility] WBC Auto (Bld) [#/Vol]Ordere d By: Cirilo Wise on 08-20-2022 WBC (Bld) [#/Vol] 10.7 10*3/uL 4.1-10.5 [facility] XR chest 1Von 08-20-2022 XR chest 1V [facility] [place] [address] XRay Report Signed Patient: Olaf Briones MR#: [id number] 2 : 1945 Acct:[id number] Age/Sex: 77 / M ADM Date: 08/20/22 Loc: Room: Type: [facility] Attending Dr: Steven Zamora DO [...] Lucinda Monreal M.D.08/20/2022 4:50 PM Dictation Location: [place] [address] Transcribed By: TERRI 08/20/22 165 Dictated By: Lucinda Monreal MD 08/20/22 1648 Signed By: 08/20/22 165 [facility] Office Visit (Cardiology)on 06-01-2022 Follow-up visit [...] Weight Tips; Status:Complete - Retrospective Authorization; Done: [id number] Some eating tips that can help you lose weight.; Status:Complete - Retrospective Authorization; Done: [id number] SocHx: Former smoker Tobacco Use Screening; Status:Complete; Done: [id number] Patient Instructions Please bring all medicines, vitamins, [...] in 1 year. Lab as scheduled with [place] Chief Complaint OLAF BRIONES is being seen [...] negative for complaint. Vitals Vital Signs Recorded: [id number] 10:52AMRecorded: [id number] 10:34AM [id number], LUE, Sitting [id number], LUE, Sitting Heart Rate72, L Radial Height5 ft 6 in Kkpzjv953 lb BMI Cobhgnqouh29.73 kg/m2 BSA Calculated1.9 Tobacco Useb) No PHQ-2 #1. Over the last 2 weeks have you felt down, depressed (more content not included)... Normal [employer] XR KUB 1 VIEWon 10-26-2021 XR KUB [...] by: AMNA BALDWIN Date: 2021-10-26 10:33 Normal [facility] Office Visit (Cardiology)on 09-18-2021 Follow-up [...] Recorded: 18Sep2021 10:16AM Heart Rate64, L Radial [id number], (more content not included)... Normal [employer] Tobacco Screening.on 022 Fall risk assessment a) No falls within the last year [facility]-Sandu eduardo 250 DO Work Phone: Tobacco use status CPHS b) No [facility] HeartCristy de souzay 250 DO Work Phone: IO EKG Electrocardiogram- 12 Leadon 11-24-2020 IO EKG Electrocardiogram- 12 Lead See Scanned Document [facility] HeartCristy de souzay 250 DO Work Phone: Tobacco Screening.on 021 Fall risk assessment a) No falls within the last year [facility] Carter de souzay 250 DO Work Phone: Tobacco use status CPHS b) No M [facility] HeartCristy clark 250 DO Work Phone: Vital Signs Date Time Vital Sign Value Performing Clinician Facility 11-29-2023 09:02-0400 Blood Pressure Location Shanna IVORY [facility] 11-29-2023 09:02-0400 Body temperature 98.6 [degF] Shanna IVORY [facility] 11-29-2023 09:02-0400 Diastolic blood pressure 65 mm[Hg] Shanna IVORY [facility] 11-29-2023 09:02-0400 Heart rate 65 /min Shanna IVORY [facility] 11-29-2023 09:02-0400 Respiratory rate 16 /min Shanna IVORY [facility] 11-29-2023 09:02-0400 Systolic blood pressure 129 mm[Hg] Shanna IVORY [facility] 06-26-2023 15:02-0400 Body height 172.7 cm Ashutosh Ling MD Work Phone: [facility] 06-26-2023 15:02-0400 Body mass index (BMI) [Ratio] 26.15 kg/m2 Ashutosh Ling MD Work Phone: [facility] 06-26-2023 15:02-0400 Body weight 78.02 kg Ashutosh Ling MD Work Phone: [facility] 06-26-2023 15:02-0400 Diastolic blood pressure 68 mm[Hg] Ashutosh Ling MD Work Phone: [facility] 06-26-2023 15:02-0400 Heart rate 60 /min Ashutosh Ling MD Work Phone: [facility] 06-26-2023 15:02-0400 Systolic blood pressure 120 mm[Hg] Ashutosh Ling MD Work Phone: [facility] 01-09-2023 15:38-0500 Body height 172.7 cm Ashutosh Ling MD Work Phone: [facility] 01-09-2023 15:38-0500 Body mass index (BMI) [Ratio] 26.76 kg/m2 Ashutosh Ling MD Work Phone: [facility] 01-09-2023 15:38-0500 Body weight 79.83 kg Ashutosh Ling MD Work Phone: [facility] 01-09-2023 15:38-0500 Diastolic blood pressure 76 mm[Hg] Ashutosh Ling MD Work Phone: [facility] 01-09-2023 15:38-0500 Heart rate 58 /min Ashutosh Ling MD Work Phone: [facility] 01-09-2023 15:38-0500 Systolic blood pressure 142 mm[Hg] Ashutosh Ling MD Work Phone: [facility] 10-29-2022 11:35-0400 Body height 172.72 cm Estella Siddiqui Other [employer] [place] Other 10-29-2022 11:35-0400 Body mass index (BMI) [Ratio] 26.64 kg/m2 Estella Siddiqui Other [employer] [place] Other 10-29-2022 11:35-0400 Body temperature 98.2 [degF] Estella Siddiqui Other [employer] [place] Other 10-29-2022 11:35-0400 Body weight 79.47 kg Estella Siddiqui Other [employer] [place] Other 10-29-2022 11:35-0400 Diastolic blood pressure 76 mm[Hg] Estella Siddiqui Other [employer] [place] Other 10-29-2022 11:35-0400 Respiratory rate 18 /min Estella Siddiqui Other [employer] [place] Other 10-29-2022 11:35-0400 SaO2% (BldA) [Mass fraction] 98 % Estella Siddiqui Other [employer] [place] Other 10-29-2022 11:35-0400 Systolic blood pressure 140 mm[Hg] Estella Siddiqui Other [employer] [place] Other 09-05-2022 13:02-0400 Body height 167.64 cm Nahomi Hernandez Work Phone: [facility] 250 DO Work Phone: 09-05-2022 13:02-0400 Body mass index (BMI) [Ratio] 27.6 kg/m2 Nahomi Hernandez Work Phone: [facility] 250 DO Work Phone: 09-05-2022 13:02-0400 Body surface area Derived from formula 1.87 m2 Nahomi Hernandez Work Phone: [facility] 250 DO Work Phone: 09-05-2022 13:02-0400 Body weight 77.57 kg Nahomi Hernandez Work Phone: [facility] 250 DO Work Phone: 09-05-2022 13:02-0400 Diastolic blood pressure 54 mm[Hg] Nahomi Hernandez Work Phone: [facility] 250 DO Work Phone: 09-05-2022 13:02-0400 Heart rate 68 /min Nahomi Hernandez Work Phone: [facility] 250 DO Work Phone: 09-05-2022 13:02-0400 Systolic blood pressure 126 mm[Hg] Nahomi Hernandez Work Phone: [facility] 250 DO Work Phone: 08-27-2022 03:30-0400 Diastolic blood pressure 76 mm[Hg] [facility] 08-27-2022 03:30-0400 Heart rate 74 /min [facility] 08-27-2022 03:30-0400 Mean blood pressure 87 mm[Hg] [facility] 08-27-2022 03:30-0400 Respiratory rate 14 /min [facility] 08-27-2022 03:30-0400 SaO2% (BldA) [Mass fraction] 96 % [facility] 08-27-2022 03:30-0400 Systolic blood pressure 110 mm[Hg] [facility] 08-27-2022 03:00-0400 Diastolic blood pressure 80 mm[Hg] [facility] 08-27-2022 03:00-0400 Heart rate 80 /min [facility] 08-27-2022 03:00-0400 Mean blood pressure 97 mm[Hg] [facility] 08-27-2022 03:00-0400 Respiratory rate 15 /min [facility] 08-27-2022 02:30-0400 Diastolic blood pressure 73 mm[Hg] [facility] 08-27-2022 02:30-0400 Heart rate 96 /min [facility] 08-27-2022 02:30-0400 Mean blood pressure 92 mm[Hg] [facility] 08-27-2022 02:30-0400 Respiratory rate 20 /min [facility] 08-27-2022 02:30-0400 SaO2% (BldA) [Mass fraction] 98 % [facility] 08-27-2022 02:30-0400 Systolic blood pressure 130 mm[Hg] [facility] 08-26-2022 19:17-0400 Respiratory rate 18 /min [facility] 08-26-2022 18:11-0400 Respiratory rate 18 /min [facility] 08-26-2022 17:07-0400 Body temperature 97.7 [degF] [facility] 08-26-2022 17:07-0400 Heart rate 83 /min [facility] 08-26-2022 17:07-0400 Respiratory rate 18 /min [facility] 08-22-2022 15:50-0400 Body temperature 98.2 [degF] [facility] 08-22-2022 15:50-0400 Diastolic blood pressure 64 mm[Hg] [facility] 08-22-2022 15:50-0400 Heart rate 64 /min [facility] 08-22-2022 15:50-0400 Respiratory rate 18 /min [facility] 08-22-2022 15:50-0400 SaO2% (BldA) [Mass fraction] 99 % [facility] 08-22-2022 15:50-0400 Systolic blood pressure 124 mm[Hg] [facility] 08-22-2022 05:48-0400 Body weight 81 kg [facility] 08-21-2022 10:27-0400 70 1 Jame Barraza Work Phone: [facility] 250 DO Work Phone: Comment on above: [id number] 08-20-2022 18:32-0400 Body height 172.72 cm [facility] 08-20-2022 17:13-0400 Heart rate 42 /min [facility] 08-20-2022 16:38-0400 Diastolic blood pressure 60 mm[Hg] [facility] 08-20-2022 16:38-0400 Respiratory rate 18 /min [facility] 08-20-2022 16:38-0400 SaO2% (BldA) [Mass fraction] 98 % [facility] 08-20-2022 16:38-0400 Systolic blood pressure 123 mm[Hg] [facility] 08-20-2022 16:25-0400 Body height 172.72 cm [facility] 08-20-2022 16:25-0400 Body temperature 97.6 [degF] [facility] 08-20-2022 16:25-0400 Body weight 81.5 kg [facility] 10-27-2021 08:55-0400 Blood Pressure Location Shanna IVORY [facility] 10-27-2021 08:55-0400 Diastolic blood pressure 76 mm[Hg] Shanna IVORY [facility] 10-27-2021 08:55-0400 Heart rate 64 /min Shanna IVORY [facility] 10-27-2021 08:55-0400 Respiratory rate 16 /min Shanna IVORY [facility] 10-27-2021 08:55-0400 Systolic blood pressure 125 mm[Hg] Shanna IVORY [facility] 03-07-2021 15:22-0500 Diastolic blood pressure 78 mm[Hg] Jame Barraza Work Phone: [facility] 250 DO Work Phone: 03-07-2021 15:22-0500 Systolic blood pressure 139 mm[Hg] Jame Barraza Work Phone: [facility] 250 DO Work Phone: 03-07-2021 14:47-0500 Body height 167.64 cm Jame Barraza Work Phone: [facility] 250 DO Work Phone: 03-07-2021 14:47-0500 Body mass index (BMI) [Ratio] 28.73 kg/m2 Jame Barraza Work Phone: [facility] 250 DO Work Phone: 03-07-2021 14:47-0500 Body surface area Derived from formula 1.9 m2 Jame Barraza Work Phone: [facility] 250 DO Work Phone: 03-07-2021 14:47-0500 Body weight 80.74 kg Jame Barraza Work Phone: [facility] 250 DO Work Phone: 03-07-2021 14:47-0500 Diastolic blood pressure 82 mm[Hg] Jame Barraza Work Phone: [facility] 250 DO Work Phone: 03-07-2021 14:47-0500 Heart rate 84 /min Jame Bowers Christi Work Phone: [facility] 250 DO Work Phone: 03-07-2021 14:47-0500 Systolic blood pressure 172 mm[Hg] Jame [place] Work Phone: [facility] 250 DO Work Phone: 11-24-2020 08:51-0400 Body height 167.64 cm Jame [place] Work Phone: [facility] 250 DO Work Phone: 11-24-2020 08:51-0400 Body mass index (BMI) [Ratio] 28.08 kg/m2 Jame Elissa Barraza Work Phone: [facility] 250 DO Work Phone: 11-24-2020 08:51-0400 Body surface area Derived from formula 1.89 m2 Jame [place] Work Phone: [facility] 250 DO Work Phone: 11-24-2020 08:51-0400 Body weight 78.93 kg Jame Musaight Work Phone: [facility] 250 DO Work Phone: 11-24-2020 08:51-0400 Diastolic blood pressure 82 mm[Hg] Jame Musaight Work Phone: [facility] 250 DO Work Phone: 11-24-2020 08:51-0400 Diastolic blood pressure 80 mm[Hg] Jame Musaight Work Phone: [facility] 250 DO Work Phone: 11-24-2020 08:51-0400 Heart rate 66 /min Jame Barraza Work Phone: [facility] 250 DO Work Phone: 11-24-2020 08:51-0400 Systolic blood pressure 136 mm[Hg] Jame Barraza Work Phone: [facility] 250 DO Work Phone: 11-24-2020 08:51-0400 Systolic blood pressure 138 mm[Hg] Jame Barraza Work Phone: [facility] 250 DO Work Phone: Encounters Encounter Date Encounter Type Care Provider Facility Start: 03-27-2024 ambulatory Shanna Yousif ty:[facility] Start: 11-29-2023 End: 11-29-2023 ambulatory Shanna IVORY Facility:[facility] Start: 11-29-2023 End: 11-29-2023 Patient encounter procedure Shanna IVORY [facility] Start: 07-22-2023 End: 07-22-2023 ambulatory Alonzo Briscoe MD Facility:[facility] Start: 06-26-2023 End: 06-26-2023 ambulatory [facility]ulatory Start: 06-26-2023 End: 06-26-2023 Office outpatient visit 25 minutes Ashutosh Ling MD Work Phone: [facility] Comment on above: Essential hypertensi on (Primary Dx); Arteriosclerotic cardiovascular disease; Abnormal EKG; Mixed hyperlipidemia; Post PTCA; BMI 26.0-26.9,adult; Never smoked tobacco Start: 06-18-2023 End: 06-18-2023 ambulatory LUCINDA VICKERS Not Available Start: 05-21-2023 End: 05-21-2023 ambulatory DAV PEGUERO Not Available Start: 03-18-2023 End: 03-18-2023 ambulatory Alonzo Briscoe MD Facility: [facility] Start: 03-12-2023 End: 03-12-2023 ambulatory DAV PEGUERO Not Available Start: 03-04-2023 End: 03-04-2023 ambulatory Alonzo Briscoe MD Facility: [facility] Start: 02-04-2023 End: 02-04-2023 ambulatory Alonzo Briscoe MD Facility:[facility] Start: 01-09-2023 End: 01-09-20[facility] Start: 01-09-2023 End: 01-09-2023 Office outpatient visit 25 minutes Ashutosh Ling MD Work Phone: [facility] Comment on above: Arteriosclerotic car diovascular disease (Primary Dx); Abnormal EKG; Mixed hyperlipidemia; Primary hypertension; Post PTCA; Essential hypertension; BMI 26.0-26.9,adult; Easy bruisability Start: 10-29-2022 End: 10-29-2022 ambulatory sEtella Siddiqui Other [facility] Stroz Friedberg Other Start: 10-29-2022 Office outpatient ne w 10 minutes Estella Siddiqui [facility] Start: 10-01-2022 Rx Renewal Nahomi Hernandez Work Phone: [facility] 250 DO Work Phone: Start: 09-14-2022 Rx Renewal Nahomi Hernandez Work Phone: [facility] 250 DO Work Phone: Start: 09-06-2022 Telephone encounter [facility] Comment on above: Patient Update Start: 09-05-2022 Office outpatient vi sit 25 minutes Nahomi Hernandez Work Phone: [facility] 250 DO Work Phone: Start: 09-05-2022 Patient encounter procedure [facility] Work Phone: Start: 09-05-[address] Ashutosh Ling Facility: Start: 09-05-2022 End: 09-05-2022 Patient encounter procedure Alexandre KOROMA [facility] Start: 09-04-2022 Telephone encounter Deborah Ibarra RN NOC Comment on above: Follow Up Phone Call (All Clear) Start: 08-27-2022 End: 08-31-2022 Evaluation and management of inpatient DAVID ANDREWS Facility:[facility] Start: 08-26-2022 End: 08-27-2022 Emergency department patient visit Keith Panchal [facility] Start: 08-24-2022 Chart Update Jame Barraza Work Phone: [facility] 250 DO Work Phone: Start: 08-22-[address] Jame Barraza Facility:[id number] Start: 08-21-[address] Jame Barraza Facility:[id number] Start: 08-20-2022 End: 08-22-2022 Evaluation and management of inpatient Steven Zamora Facility:[facility] Start: 08-20-2022 End: 08-22-2022 Evaluation and management of inpatient [facility] [place] Work Phone: Start: 08-20-2022 Admission to [facility] Work Phone: Start: 08-20-2022 ambulatory NON STAFF [facility] Work Phone: Start: 08-20-[address] Ben Zamora Facility:[id number] Start: 08-20-[address] Jame Barraza Facility:[id number] Start: 06-01-[address] Nahomi Hernandez Facility: Start: 10-27-2021 End: 10-27-2021 Patient encounter procedure Shanna IVORY [facility] Start: 10-26-2021 End: 10-27-[address] SHANNA IVORY Facility:[facility]1 Start: 05-04-2021 ambulatory DOMINGUEZ GUTIERREZ Faci lity:H1 Start: 03-07-2021 Office outpatient vi sit 25 minutes Jame Barraza Work Phone: [facility] 250 DO Work Phone: Start: 11-29-2020 Chart Update Jame Barraza Work Phone: [facility] 250 DO Work Phone: Start: 11-28-2020 Patient encounter procedure Jame Barraza Work Phone: [facility] 250[address] [place] Work Phone: Start: 11-24-2020 AUDIT Jame Barraza Work Phone: [facility] 250 DO Work Phone: Procedures Date Procedure Procedure Detail Performing Clinician Start: 06-26-2023 FOLLOW UP IN CARDIOLOGY ASHUTOSH LING Start: 08-30-2022 Antibody screen DAVID PEREZ Comment on above: Order Comment: Speci men Type: BLOOD SPECIMENOrdering Facility: [facility] Address: [address] [place] [address] Performed By: #### T SCR ####CC MAIN BLOOD BANKCLIA [id number] [facility] [id number] [place] [address] [place] Start: 08-29-2022 Cysto w/irrig & evac multple obstructing clots Shanna IVORY Start: 08-29-2022 Trurl rescj residual/regrowth obstr prstate tiss Shanna IVORY Start: 08-27-2022 Antibody screen DAVID PEREZ Comment on above: Order Comment: Speci men Type: BLOOD SPECIMENOrdering Facility: [facility] Address: [address] [place] [address] Performed By: #### T SCR ####CC MAIN BLOOD BANKCLIA [id number] [address] [address] [id number] [address] [place] Start: 08-20-[address] acement [...] - Td or Tdap) [facility] Start: 03-27-2031 Urine microalbumin profile DTAP,TDAP,TD (2 - Td or Tdap) [facility] Start: 03-13-2024 End: 03-13-2024 Patient encounter procedure 03/13/2024 11:20 AM EST Office Visit [address] [phone] Ashutosh Ling MD [address] [facility] [place] [address] [facility] Start: 06-26-2023 End: 06-26-2023 Patient encounter procedure 06/26/2023 3:10 PM EDT Office Visit [facility] [address] [facility] [address] [place] [phone] Ashutosh Ling [facility] [facility] [place] [address] [facility] Start: 06-07-2023 FUV, Provider: Ashutosh Ling, Status: Pen, Time: 11:20 AM FUV, Provider: Ashutosh Ling, Status: Pen, Time: 11:20 AM [facility] Work Phone: Start: 01-09-2023 FUV, Provider: Ashutosh Ling, Status: Pen, Time: 3:30 PM FUV, Provider: Ashutosh Ling, Status: Pen, Time: 3:30 PM [facility] 250 DO Work Phone: Start: 10-19-2022 COVID-19 Vaccine ( season) COVID-19 Vaccine ( season) [facility] Start: 10-19-2022 Influenza vaccination INFLUENZA (#1) [facility] Start: 09-05-2022 FUV, Provider: Ashutosh Ling, Status: Pen, Time: 12:50 PM FUV, Provider: Ashutosh Ling, Status: Pen, Time: 12:50 PM [facility] Work [facility]: Start: 08-22-2022 [facility] Start: 08-20-2022 Consultation [facility] Start: 08-20-2022 Referral to cardiac rehabilitation program [facility] Start: 08-20-2022 [facility] Start: 08-20-2022 End: 08-20-2022 Hospital admission [facility] Start: 02-18-2022 ADVANCE DIRECTIVE DISCUSSION ADVANCE DIRECTIVE DISCUSSION [facility] Start: 02-18-2022 DEPRESSION ASSESSMENT DEPRESSION ASSESSMENT [facility] Start: 08-30-2021 FUV, Provider: Ashutosh Ling, Status: Pen, Time: 2:30 PM FUV, Provider: Ashutosh Ling, Status: Pen, Time: 2:30 PM -[facility] 250 DO Work Phone: Start: 04-03-2021 COVID-19 VACCINE (4 - Pfizer series) COVID-19 VACCINE (4 - Pfizer series) [facility] Start: 03-07-2021 FUV, Provider: Ashutosh Ling, Status: Pen, Time: 2:50 PM FUV, Provider: Ashutosh Ling, Status: Pen, Time: 2:50 PM -[facility] 250 DO Work Phone: Start: 11-28-2020 EVENT ELIEZER, Provider: FADUMO BENSON [employer] 1,[id number], Status: Pen, Time: 10:30 AM EVENT 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 Start: 06-18-1995 SHINGRIX VACCINE (1 of 2) SHINGRIX VACCINE (1 of 2) [facility] Start: 06-18-1995 Zoster Vaccines (1 of 2) Zoster Vaccines (1 of 2) [facility] Start: 06-18-1963 ANNUAL PCP TEAM CHRONIC DISEASE VISIT ANNUAL PCP TEAM CHRONIC DISEASE VISIT [facility] Start: 06-18-1963 BP CONTROLLED (<130/80) BP CONTROLLED (<130/80) [facility] Start: 06-18-1963 Diabetes mellitus screening Diabetes Screening [facility] Start: 06-18-1963 Hepatitis B surface antibody level LDL CHOLESTEROL [facility] Start: 06-18-1963 HEPATITIS C SCREENING HEPATITIS C SCREENING [facility] Start: 06-18-1963 Hepatitis C screening Hepatitis C Screening [facility] Start: 06-18-1955 3 comp foot exam completed DIABETIC FOOT EXAM [facility] Start: 06-18-1955 Hepatitis B screening URINE ALBUMIN:CREATININE RATIO [facility] Start: 06-18-1955 Hepatitis C antibody, confirmatory test DILATED RETINAL EXAM [facility] Start: 1950 Hemoglobin A1c/Hemoglobin.total in Blood HBA1C [facility] Start: 1945 Lipid panel Lipid Panel [facility] Start: 1945 Medicare Annual Wellness Visit Medicare Annual Wellness Visit (AWV) [facility] Patient Education Coronary Angio plasty (DC) Coronary Stenting (DC) Angina (DC) Chest Pain (DC) Drug Eluting Stents [facility] Work Phone: Patient referral [facility] Work Phone: Immunizations Immunization Date Immunization Notes Care Provider [facility] 11-19-2022 influenza virus vaccine, unspecified formulation Shanna IVORY [facility] 02-18-2022 influenza nasal, unspecified formulation Deborah Ibarra RN [facility] 12-26-2021 Fluad Quadrivalent 0 .5 ML Intramuscular Prefilled Syringe Jame Barraza Work Phone: [facility] 12-26-2021 influenza virus vaccine, unspecified formulation Shanna IVORY [facility] 12-26-2021 influenza, high dose seasonal, preservative-free Ashutosh Ling MD Work Phone: [facility] Work Phone: 03-27-2021 tetanus toxoid, redu shruti diphtheria toxoid, and acellular pertussis vaccine, adsorbed Deborah Ibarra RN [facility] 02-06-2021 Pfizer-BioNTech COVID-19 Vacc 30 MCG/0.3ML Intramuscular Suspension Jame Barraza Work Phone: [facility] 11-18-2020 influenza nasal, unspecified formulation Deborah Ibarra RN [facility] 11-10-2020 Fluad Quadrivalent 0 .5 ML Intramuscular Prefilled Syringe Jame Barraza Work Phone: [facility] 11-10-2020 influenza virus vaccine, unspecified formulation Shanna IVORY [facility] 04-12-2020 Pfizer-BioNTech COVID-19 Vacc 30 MCG/0.3ML Intramuscular Suspension Jame Barraza Work Phone: [facility] Comment on above: Result Comment: 2022: [id number] 03-28-2020 COVID-19 original vaccine, age 12+ yr, monovalent (PFIZER-BIONTECH - PURPLE TOP) Deborah Ibarra RN [facility] 03-22-2020 Pfizer-BioNTech COVID-19 Vacc 30 MCG/0.3ML Intramuscular Suspension Jame Barraza Work Phone: [facility] Comment on above: Result Comment: 2022: [id number] 03-21-2020 SARS-CoV-2 (COVID-19 ) Ad26 vaccine, recombinant Shanna IVORY [facility] Comment on above: Result Comment: unab le to give exact dates 12-16-2019 influenza (HD-IIV4) vaccine, age 65+ yr, high dose, quadrivalent, PF (FLUZONE HIGH-DOSE) Deborah Ibarra RN [facility] 12-16-2018 AS03 adjuvant Deborah Ibarra [facility] 12-24-2017 AS03 adjuvant Deborah Ibarra RN [facility] 12-21-2016 influenza, high dose seasonal, preservative-free Deborah Ibarra RN [facility] 02-19-2016 pneumococcal polysaccharide vaccine, 23 valent Jame Barraza Work Phone: [facility] Comment on above: Series: 11-23-2015 influenza virus vaccine, unspecified formulation Shanna IVORY [facility] 11-23-2015 influenza, high dose seasonal, preservative-free Jame Elissa [place] Work Phone: [facility] 10-20-2015 influenza nasal, unspecified formulation Deborah Ibarra RN [facility] 11-06-2014 influenza nasal, unspecified formulation Deborah Ibarra RN [facility] 11-06-2014 pneumococcal conjuga te vaccine, 13 valent Deborah Ibarra RN [facility] Payers Date Payer Category Payer Self-pay 2022 Medicare [id number] 2022 Medicare [id number] 1959 Medicare [id number] 1959 Private Health Insurance CAP [id number] 1945 Unknown [id number] 1945 Unknown [id number] 2.840.1.172301.3.579.2.593 1945 Unknown [id number] 2.840.1.851879.3.579.2.356 1945 Unknown [id number] 2.840.1.262150.3.579.2.356 1945 Unknown [id number] 2.16840.1.409779.3.579.2.356 1945 Unknown [id number] 2.16840.1.533557.3.579.2.356 1945 Unknown [id number] 2.840.1.639664.3.579.2.356 1945 Unknown [id number] 2.16.840.1.962241.3.579.2.356 1945 Unknown [id number] 2.16.840.1.890166.3.579.2.1259 1945 Unknown [id number] 2.16.840.1.802647.3.579.2.1259 1945 Unknown [id number] 2.16.840.1.480366.3.579.2.1259 1945 Unknown [id number] 2.16.840.1.474558.3.579.2.1244 1945 Unknown [id number] 2.16.840.1.013820.3.579.2.1244 1945 Unknown [id number] 2.16.840.1.176749.3.579.2.196 1945 Unknown [id number] 2.16.840.1.446778.3.579.2.196 1945 Unknown [id number] 2.16.840.1.706065.3.579.2.196 1945 Unknown [id number] 2.16.840.1.277415.3.579.2.196 1945 Unknown [id number] 2.16.840.1.277190.3.579.2.727 1945 Unknown [id number] 2.16.840.1.338445.3.579.2.727 Private Health Insurance [facility] [id number] Unknown Unknown [id number] 2.16.840.1.766711.3.579.2.531 Social History Date Type Detail Facility Start: 01-08-2023 End: 01-09-2023 No alcohol use No alcohol use [place] [address] DO Work Phone: Comment on above: 1 cup of coffee edelmira y; former cigar smoker; Start: 10-21-2020 End: 11-29-2023 Tobacco smoking status Never smoked tobacco (finding) [facility] Start: 01-08-2023 End: 01-09-2023 Sex Assigned At Male [facility] Start: 1945 Sex Assigned At Male F [facility] Tobacco smoking status [facility] Tobacco smoking consumption unknown [facility] Start: 1945 Sex Assigned At Not on file [facility] Start: 01-08-2023 Tobacco smoking status NHIS Ex-smoker [facility] Work Phone: History of tobacco use Current smoker [facility] Work Phone: History of tobacco use Cigar Smoker [facility] Work Phone: Start: 01-08-2023 End: 06-26-2023 Tobacco use and exposure Smokeless tobacco non-user [facility] Work Phone: Start: 01-09-2023 End: 06-26-2023 Alcohol intake Ex-drinker (finding) [facility] Work Phone: Start: 12-30-2022 End: 06-26-2023 Exposure to SARS-CoV-2 (event) Not sure [facility] Tobacco smoking status Never [facility] Medical Equipment Procedure Code Equipment Code Equipment Origin al Text Equipment Identifier Dates CL STENT BISHOP FRONTIER 3.0 X 26 FDA Start: 08-20-2022 Femoral artery closure plug/patch, synthetic polymer ([id number] FDA Start: 08-20-2022 Goals Date Patient Goal Desired Activity /State Functional Status Date Assessment Result Facility 11-29-2023 Functional Status N/A [facility] 08-26-2022 Functional Status N/A [facility] 08-22-2022 Functional status Patient at Baseline [facility] Work Phone: 10-27-2021 Functional Status N/A [facility] Mental Status Date Assessment Result Facility 08-22-2022 Cognitive function Cognitive Sta tus Patient at Baseline [facility] Work Phone: Clinical Notes 10-27-2021 to 11-29-2023 Ashutosh Ling MD - 06/26/2023 3:10 PM EDTPatient InstructionsAshutosh Ling MD - 01/09/2023 3:30 PM ESTPatient Instructions Note Date & Type Note Facility 11-29-2023 Hospital Discharge instructions Patient Education 11/29/2023 09:42:02 24-Hour Urine Collection 24-Hour Urine Collection Why am I having this test? A 24-hour urine specimen is a lab test that requires you to collect all of your urine for an entire day. This is sometimes called a timed urine test. It can provide more information than a single urine sample. There are many reasons to have this test. Your health care provider may order the test to check for or monitor the following conditions: High blood pressure. Kidney disease. Kidney stones. Urinary tract infections. . Diabetes. How do I prepare for this test? You may be asked to follow a special diet during or before the collection period. Follow any instructions from your health care provider. If no special instructions are given, you may eat and drink normally. Take cuoa-pro-qypgbet and prescription medicines only as told by your health care provider. Let your health care provider know about any medicines that you are taking, including tzdq-xnh-tmisnax medicines, vitamins, herbs, and supplements. Choose a collection day when you can be at home or when you have a place to store the urine. All urine must be collected during the testing period. How do I do a 24-hour urine collection? When you get up in the morning, urinate in the toilet and flush. Write down the time. This will be your start time on the day of collection and your end time on the next morning. From the start time on, all of your urine should be kept in the collection jug that you received from the lab. If the jug that is given to you already has liquid in it, that is okay. Do not throw out the liquid or rinse out the jug. Urinate into a specimen container, such as a urinal or stovall that sits over the toilet. Pour the urine from the container into the collection jug. Be careful not to spill any of the urine. Use the equipment provided by the lab. Do not let any toilet paper or stool (feces) get into the jug. This will contaminate the sample. Stop collecting your urine 24 hours after you started. Collect the last specimen as close as possible to the end of the 24-hour period. Keep the jug cool in an ice chest or keep it in the refrigerator during collection. When the 24-hour collection is complete, take the jug to the lab as soon as possible. Keep the jug cool in an ice chest while you are bringing it to the lab. What do the results mean? Talk with your health care provider about what your results mean. Questions to ask your health care provider Ask your health care provider, or the department that is doing the test: When will my results be ready? How will I get my results? What are my treatment options? What other tests do I need? What are my next steps? Summary A 24-hour urine specimen is a lab test that requires you to collect all of your urine for an entire day. When you get up in the morning, urinate in the toilet and flush. Write down the time. For the next 24 hours, collect all of your urine in the collection jug that you received from the lab. Keep the jug cool while collecting the urine and while bringing it back to the lab. Take the jug of urine back to the lab as soon as possible after the collection period has ended. This information is not intended to replace advice given to you by your health care provider. Make sure you discuss any questions you have with your health care provider. Document Revised: 08/11/2021 Document Reviewed: 08/11/2021 [employer] Patient Education 2023 [employer] 11/29/2023 09:40:32 Laser Therapy for Kidney Stones Laser Therapy for Kidney Stones Laser therapy for kidney stones is a procedure to break up rock-like masses that form inside the kidneys (kidney stones). It is done using a device that beams a strong light (laser) on the kidney stones. This breaks the stones up into small pieces. These small pieces may leave your body when you pee (urinate) or may be taken out during the procedure. You may need laser therapy if you have kidney stones that are painful or that are stopping you from being able to pee. Tell a health care provider about: Any allergies you have. All medicines you are taking, including vitamins, herbs, eye drops, creams, and rrut-wif-cidnxfz medicines. Any problems you or family members have had with anesthesia. Any bleeding problems you have. Any surgeries you have had. Any medical conditions you have. Whether you are or may be . What are the risks? Your health care provider will talk with you about risks. These may include: Infection. Bleeding. Allergic reactions to medicines. Damage to: ?The part of your body that drains pee (urine) from the bladder (urethra). ?The bladder. ?The tube that connects the bladder to the kidneys (ureter). Urinary tract infection (UTI). Urethral stricture. This is when the urethra is narrowed by scarring. Trouble peeing. Blockage of the kidney. This may be caused by a piece of kidney stone. What happens before the procedure? When to stop eating and drinking Follow instructions from your provider about what you may eat and drink. These may include: 8 hours before the procedure ?Stop eating most foods. Do not eat meat, fried foods, or fatty foods. ?Eat only light foods, such as toast or crackers. ?All liquids are okay except energy drinks and alcohol. 6 hours before the procedure ?Stop eating. ?Drink only clear liquids, such as water, clear fruit juice, black coffee, plain tea, and sports drinks. ?Do not drink energy drinks or alcohol. 2 hours before the procedure ?Stop drinking all liquids. ?You may be allowed to take medicines with small sips of water. If you do not follow your provider's instructions, your procedure may be delayed or canceled. Medicines Ask your provider about: ?Changing or stopping your regular medicines. These include any diabetes medicines or blood thinners you take. ?Taking medicines such as aspirin and ibuprofen. These medicines can thin your blood. Do not take them unless your provider tells you to. ?Taking qaob-zeh-nbjyjsu medicines, vitamins, herbs, and supplements. Tests You may have a physical exam before the procedure. You may also have tests done. These may include: ?Imaging tests. ?Blood or pee tests. Surgery safety Ask your provider: ?How your surgery site will be marked. ?What steps will be taken to help prevent infection. These steps may include: ?Removing hair at the surgery site. ?Washing skin with a soap that kills germs. ?Taking antibiotics. General instructions Do not use any products that contain nicotine or tobacco for at least 4 weeks before the procedure. These products include cigarettes, chewing tobacco, and vaping devices, such as e-cigarettes. If you need help quitting, ask your provider. If you will be going home right after the procedure, plan to have a responsible adult: ?Take you home from the hospital or clinic. You will not be allowed to drive. ?Care for you for the time you are told. What happens during the procedure? An IV will be inserted into one of your veins. You will be given: ?A sedative. This helps you relax. ?Anesthesia. This keeps you from feeling pain. It will make you fall asleep for surgery. A tool with a camera on the end (ureteroscope) will be put into your urethra. It will be moved through your bladder to your kidney. It will send pictures to a screen in the operating room. This will show what parts of your kidney need to be treated. A tube will be put through the ureteroscope. It will be moved into your kidney. The laser device will be put into your kidney through the tube. The laser will be used to break up the kidney stones. A tool with a tiny wire basket may be put through the tube into your kidney. This can help remove the small pieces of the kidney stone. A small mesh tube (stent) may be placed to allow your kidney to drain. The tube and ureteroscope will be taken out at the end of the surgery. The procedure may vary among providers and hospitals. What happens after the procedure? Your blood pressure, heart rate, breathing rate, and blood oxygen level will be monitored until you leave the hospital or clinic. If you had a stent placed, it may have a string that will be secured to your skin. This helps your provider remove the stent. You may be given a strainer to collect any stone pieces that you pass in your pee. Your provider may have these tested. This information is not intended to replace advice given to you by your health care provider. Make sure you discuss any questions you have with your health care provider. Document Revised: 10/05/2022 Document Reviewed: 10/05/2022 [employer] Patient Education 2023 [employer]. Follow Up Care 11/26/2022 14:10:52 With:CACHORRO HAHN, Shanna Sánchez, URL Address: [facility] [address] [place] [address]- When: Unknown [facility] Franca 11-29-2023 Note Patient Education Nephrology Laser Therapy for Kidney Stones Laser therapy for kidney stones is a procedure to break up rock-like masses that form inside the kidneys (kidney stones). It is done using a device that beams a strong light (laser) on the kidney stones. This breaks the stones up into small pieces. These small pieces may leave your body when you pee (urinate) or may be taken out during the procedure. You may need laser therapy if you have kidney stones that are painful or that are stopping you from being able to pee. Tell a health care provider about: ? Any allergies you have. ? All medicines you are taking, including vitamins, herbs, eye drops, creams, and uhix-fxd-hqvrbmx medicines. ? Any problems you or family members have had with anesthesia. ? Any bleeding problems you have. ? Any surgeries you have had. ? Any medical conditions you have. ? Whether you are or may be . What are the risks? Your health care provider will talk with you about risks. These may include: ? Infection. ? Bleeding. ? Allergic reactions to medicines. ? Damage to: ? The part of your body that drains pee (urine) from the bladder (urethra). ? The bladder. ? The tube that connects the bladder to the kidneys (ureter). ? Urinary tract infection (UTI). ? Urethral stricture. This is when the urethra is narrowed by scarring. ? Trouble peeing. ? Blockage of the kidney. This may be caused by a piece of kidney stone. What happens before the procedure? When to stop eating and drinking Follow instructions from your provider about what you may eat and drink. These may include: ? 8 hours before the procedure ? Stop eating most foods. Do not eat meat, fried foods, or fatty foods. ? Eat only light foods, such as toast or crackers. ? All liquids are okay except energy drinks and alcohol. ? 6 hours before the procedure ? Stop eating. ? Drink only clear liquids, such as water, clear fruit juice, black coffee, plain tea, and sports drinks. ? Do not drink energy drinks or alcohol. ? 2 hours before the procedure ? Stop drinking all liquids. ? You may be allowed to take medicines with small sips of water. ? If you do not follow your provider's instructions, your procedure may be delayed or canceled. Medicines ? Ask your provider about: ? Changing or stopping your regular medicines. These include any diabetes medicines or blood thinners you take. ? Taking medicines such as aspirin and ibuprofen. These medicines can thin your blood. Do not take them unless your provider tells you to. ? Taking hnxa-dpt-plypsxz medicines, vitamins, herbs, and supplements. Tests ? You may have a physical exam before the procedure. You may also have tests done. These may include: ? Imaging tests. ? Blood or pee tests. Surgery safety ? Ask your provider: ? How your surgery site will be marked. ? What steps will be taken to help prevent infection. These steps may include: ? Removing hair at the surgery site. ? Washing skin with a soap that kills germs. ? Taking antibiotics. General instructions ? Do not use any products that contain nicotine or tobacco for at least 4 weeks before the procedure. These products include cigarettes, chewing tobacco, and vaping devices, such as e-cigarettes. If you need help quitting, ask your provider. ? If you will be going home right after the procedure, plan to have a responsible adult: ? Take you home from the hospital or clinic. You will not be allowed to drive. ? Care for you for the time you are told. What happens during the procedure? ? An IV will be inserted into one of your veins. ? You will be given: ? A sedative. This helps you relax. ? Anesthesia. This keeps you from feeling pain. It will make you fall asleep for surgery. ? A tool with a camera on the end (ureteroscope) will be put into your urethra. It will be moved through your bladder to your kidney. It will send pictures to a screen in the operating room. This will show what parts of your kidney need to be treated. ? A tube will be put through the ureteroscope. It will be moved into your kidney. ? The laser device will be put into your kidney through the tube. The laser will be used to break up the kidney stones. ? A tool with a tiny wire basket may be put through the tube into your kidney. This can help remove the small pieces of the kidney stone. ? A small mesh tube (stent) may be placed to allow your kidney to drain. ? The tube and ureteroscope will be taken out at the end of the surgery. The procedure may vary among providers and hospitals. What happens after the procedure? ? Your blood pressure, heart rate, breathing rate, and blood oxygen level will be monitored until you leave the hospital or clinic. ? If you had a stent placed, it may have a string that will be secured to your skin. This helps your provider remove the stent. ? You may be given a strainer to col (more content not included)... [facility] 06-26-2023 History of Present illness Narrative Subjective [...] his lab work is done through the [place] system Review of Systems Cardiovascular: Positive for [...] plan. documented in this encounter [facility] Work Phone: 06-26-2023 Instructions Mandy Munoz [...] daily documented in this encounter [facility] Work Phone: 01-09-2023 History of Present [...] bruisability documented in this encounter [facility] Work Phone: 01-09-2023 Instructions Travis Peter [...] visit. documented in this encounter [facility] Work Phone: 10-29-2022 Evaluation note Encounter Date Diagnosis Assessment Notes Oct, Impacted cerumen of both ears (ICD-10 - H61.23) Cerumen impaction home care material was printed Drink plenty fluids, get plenty of rest. Continue home medications as prescribed. Follow-up with your family physician for any further concerns [employer] Other 07-20-2023 Miscellaneous Notes* Telephone Encounter - [...] on flomax? Please advise. [facility] Miscellaneous Notes* Telephone Encounter - Deborah Ibarra RN - 09/04/2022 12:51 PM EDT PATIENT INFORMATION Record ID: [id number] Patient Name: [facility]: [facility] [place]: [facility] [place] Attending: David Andrews Center: Urology INSTRUCTIONS SN to remind patient of appointment date, time, location All Clear All Clear SURVEY INFORMATION Medical/Nurse [employer] Officer: Deborah Ibarra 1. Your discharge instructions are [...] symptoms? (Standard Question) No [facility] NoteHNO ID: [id number] Author: Kathrin Dickerson RN Service: Care Management [...] Primary Care Physician Name/Phone: Jame Barraza MD [phone] Patient is medically stable for discharge, on RA, no dc needs. IMM provided on 08/30 by previous CM. Patients to discharge home. SIGNATURE: Kathrin Dickerson RN PATIENT NAME: Olaf Briones DATE: August 31, 2022 TIME: 9:40 AM CONTACT #: [phone] Note HNO ID: [id number] Author: Danyell Morris MD Service: Critical Care Author Type: Anesthesiologist Type: Progress Notes Filed: 08/31/2022 2:15 PM Note Text: SERVICE DATE: 08/31/2022 SERVICE TIME: 8:54 AM SURGICAL INTENSIVE CARE UNIT PROGRESS NOTE BRIEF HPI: Olaf Briones is a 77 year old male with PMHx of recent STEMI on 08/20/22 (s/p JUHI),HTN, HLD, DM, nephrolithiasis, transferred from [facility] for gross hematuria. He is now s/p [...] SICU discussed patient transfer to [facility]. 08/30:no acute events. Hemodynamically stable. 08/31: No acute events. HDS. Patient is doing well and ready for transfer/discharge per Urology. Subjective INTERVAL EVENTS: Improved Objective MEDICATIONS: Current medications and allergies reviewed. Recommended/planned medication changes discussed in detail in the A/P section below. Please refer to [facility] for list of inpatient medications. VITAL SIGNS: [...] aspirin and ticagrelor Coronary artery disease involving [place] coronary artery of [place] heart Assessment: STEMI on 08/19/2022 s/p JUHI [...] Antiplatelet Medications (From admiss (more content not included)...[facility]07-14-2023 NoteHNO ID: [id number] Author: Prema Feliz MD Service: Urology Author Type: Resident Type: Progress Notes Filed: 08/31/2022 6:45 AM Note Text: [facility] UROLOGY PROGRESS NOTE Name: Olaf Briones Bed: H050 [id number]/H050-13 Date: 08/31/2022 After Hours [facility] Service Pager: [phone] ASSESSMENT AND PLAN Olaf Briones is a 77 year old male with PMHx of HTN, HLD, DM, recent STEMI (s/p JUHI, on Brillinta and ASA), nephrolithiasis s/p ESWL , BPH s/p TURP 2001, transferred from [facility] for gross hematuria. Currently with 18Fr 3-way catheter on CBI. Now 3 Days Post-Op s/p cystoscopy, clot evacuation, cystolitholapaxy, TURP. Admitted to SICU postoperatively due to pressor requirements and risk of hyponatremia due to length of TURP. 22Fr [address] hernandez placed introp, on traction and CBI. Transferred to [facility] 08/30. Interval: - AFVSS - Doing well, [...] order flomax for home. Active Problems Prior CT POA: Yes - placed on ASA 81, ticagrelor 90 mg BID Nephrolithiasis POA: Yes - Monitor HLD POA: Yes - Home atorva 80 mg DM POA: Yes - SSI HTN POA: Yes - amlodipine 5mg daily, carvedilol 6.25 BID, lisinopril 2.5 mg daily Prema Feliz MD PGY-2 Resident Physician Urology Pager: [phone] For weekend or after hours issues [place] [phone] SUBJECTIVE See above Objective OBJECTIVE Vital Signs BP 114/56 Pulse 61 Temp 36.9 ?C (98.4 ?F) (Oral) Resp 15 Ht 173 cm (5' 8.11 ) Wt 77.9 kg (171 lb 11.8 oz) SpO2 95% BMI 26.03 kg/m? Input and Output Intake/Output Summary (Last 24 hours) at 08/31/2022 0645 Last data filed at 08/31/2022 0600 Gross per 24 hour Intake 6174.7 ml Output 39602 ml Net -5325.3 ml Physical Exam GEN: [...] Feliz MD PGY-2 Resident Physician Urology Pager: [phone] For weekend or after hours issues please page [place] [phone] NoteHNO ID: [id number] Author: Danyell Morris MD Service: Critical Care Author Type: Anesthesiologist Type: Progress Notes Filed: 08/30/2022 3:36 PM Note Text: SERVICE DATE: 08/30/2022 SERVICE TIME: 3:25 PM SURGICAL INTENSIVE CARE UNIT PROGRESS NOTE BRIEF HPI: Olaf Briones is a 77 year old male with PMHx of recent STEMI on 08/20/22 (s/p JUHI),HTN, HLD, DM, nephrolithiasis, transferred from [facility] for gross hematuria. He is now s/p [...] SICU discussed patient transfer to [facility]. 08/30:no acute events. Hemodynamically stable. Subjective INTERVAL EVENTS: hemodynamically stable. Objective MEDICATIONS: Current medications and allergies reviewed. Recommended/planned medication changes discussed in detail in the A/P section below. Please refer to [facility] for list of inpatient medications. VITAL SIGNS: [...] Clinically Ready to Transfer to [facility] or SDU?: Yes, transfer to SDU or [facility] today Discharge Planning: To be determined Prevention: [...] aspirin and ticagrelor Coronary artery disease involving [place] coronary artery of [place] heart Assessment: STEMI on 08/19/2022 s/p JUHI [...] Prophylaxis/Anticoagulants Anticoagulant AND Antiplatel (more content not included)...[facility]07-13-2023 NoteHNO ID: [id number] Author: Prema Feliz MD Service: Urology Author Type: Resident Type: Progress Notes Filed: 08/30/2022 7:12 AM Note Text: [facility] UROLOGY PROGRESS NOTE Name: Olaf Briones Bed: H050 013/H050-13 Date: 08/30/2022 After Hours [facility] Urology Service Pager: [phone] ASSESSMENT AND PLAN Olaf Briones is a 77 year old male with PMHx of HTN, HLD, DM, recent STEMI (s/p JUHI, on Brillinta and ASA), nephrolithiasis s/p ESWL , BPH s/p TURP 2001, transferred from [facility] for gross hematuria. Currently with 18Fr 3-way catheter on CBI. Now 2 Days Post-Op s/p cystoscopy, clot evacuation, cystolitholapaxy, TURP. Admitted to SICU postoperatively due to pressor requirements and risk of hyponatremia due to length of TURP. 22Fr [address] hernandez placed introp, on traction and CBI. Awaiting bed on [facility]. Interval: - Afebrile, SBPs 110s - Doing [...] discharge today vs tomorrow Active Problems Prior CT POA: Yes - placed on ASA 81, ticagrelor 90 mg BID Nephrolithiasis POA: Yes - Monitor HLD POA: Yes - Home atorva 80 mg DM POA: Yes - SSI HTN POA: Yes - amlodipine 5mg daily, carvedilol 6.25 BID, lisinopril 2.5 mg daily Prema Feliz MD PGY-2 Resident Physician Urology Pager: [phone] For weekend or after hours issues [place] [phone] SUBJECTIVE See above Objective OBJECTIVE Vital Signs BP 111/56 Pulse 61 Temp 36.7 ?C (98.1 ?F) (Axillary) Resp 12 Ht 173 cm (5' 8.11 ) Wt 84 kg (185 lb 3 oz) SpO2 96% BMI 28.07 kg/m? Input and Output Intake/Output Summary (Last 24 hours) at 08/30/2022 0558 Last data filed at 08/30/2022 0500 Gross per 24 hour Intake 6400 ml Output 18100 ml Net -4150 ml Physical Exam GEN: [...] Feliz MD PGY-2 Resident Physician Urology Pager: [phone] For weekend or after hours issues please page the [place] [phone] NoteHNO ID: [id number] Author: Ary Frazier RN Service: Care Management [...] oxygen, or cpaps at home. Had recent CT in past. Cardiology on consult. No current [...] 29, 2022 TIME: 12:11 PM PAGER/CONTACT #: [phone] NoteHNO ID: [id number] Author: Danyell Morris MD Service: Critical Care Author Type: Anesthesiologist Type: Progress Notes Filed: 08/29/2022 3:08 PM Note Text: SERVICE DATE: 08/29/2022 SERVICE TIME: 11:28 AM SURGICAL INTENSIVE CARE UNIT PROGRESS NOTE BRIEF HPI: Olaf Briones is a 77 year old male with PMHx of recent STEMI on 08/20/22 (s/p JUHI),HTN, HLD, DM, nephrolithiasis, transferred from [facility] for gross hematuria. He is now s/p [...] SICU discussed patient transfer to [facility]. Subjective INTERVAL EVENTS: Improved Objective MEDICATIONS: Current medications and allergies reviewed. Recommended/planned medication changes discussed in detail in the A/P section below. Please refer to [facility] for list of inpatient medications. VITAL SIGNS: [...] Clinically Ready to Transfer to [facility] or SDU?: Yes, transfer to SDU or [facility] today Discharge Planning: To be determined Prevention: [...] aspirin and ticagrelor Coronary artery disease involving [place] coronary artery of [place] heart Assessment: STEMI on 08/19/2022 s/p JUHI [...] SICU ok for transfer to [facility] Medication and Non-Pharmacologic VTE Prophylaxis/Anticoagulants Anticoagulant AND Antiplatelet Medica (more content not included)...[facility]07-12-2023 NoteHNO ID: [id number] Author: David Andrews MD Service: Urology Author Type: Physician Type: Progress Notes Filed: 08/29/2022 7:09 PM Note Text: [facility] UROLOGY PROGRESS NOTE Name: Olaf Briones Bed: H050 013/H050-13 Date: 08/29/2022 After Hours [facility] Urology Service Pager: [phone] ASSESSMENT AND PLAN Olaf Briones is a 77 year old male with PMHx of HTN, HLD, DM, recent STEMI (s/p JUHI, on Brillinta and ASA), nephrolithiasis s/p ESWL remote, BPH s/p TURP 2001, transferred from [facility] for gross hematuria. Currently with 18Fr 3-way [...] -Encourage IS -Continue telemetry on [facility] #GI - -Diet: Regular diet -Colace, Zofran [...] #Disposition - pending course, to [facility] today if SICU agrees it is appropriate. Plan for discharge tomorrow. Active Problems Prior CT POA: Yes - placed on ASA 81, ticagrelor 90 mg BID Nephrolithiasis POA: Yes - Monitor HLD POA: Yes - Home atorva 80 mg DM POA: Yes - SSI HTN POA: Yes - amlodipine 5mg daily, carvedilol 6.25 BID, lisinopril 2.5 mg daily Prema Feliz MD PGY-2 Resident Physician Urology Pager: [phone] For weekend or after hours issues [place] [phone] CHIEF RESIDENT ADDENDUM POD#1 s/p cysto, TURP, [...] 08/29/2022 0700 Gross per 24 hour Intake 81026.5 ml Output 66433 ml Net 5853.5 ml Gen: No apparent [...] recs Gt Mcgowan MD Resident PGY-6 Urology [facility] [facility] Please page Dr. Feliz with any [...] 08/29/2022 0700 Gross per 24 hour Intake 16204.5 ml Output 24064 ml Net 5853.5 ml Physical Exam GEN: [...] Feliz MD PGY-2 Resident Physician Urology Pager: [phone] For weekend or after hours issues [place] [phone] [facility] STAFF PHYSICIAN NOTE OF PERSONAL INVOLVEMENT IN CARE I have reviewed the progress note obtained and documented by the resident (more content not included)...[facility]07-11-2023 NoteHNO ID: [id number] Author: Molly Rosado APRN.SUPERVISING FLOORPERSON Service: ? Author Type: Nurse Program Project Manager Type: Anesthesia Procedure Notes Filed: 08/28/2022 7:27 PM Note Text: ANESTHESIOLOGY PROCEDURE NOTE PIV General Information Procedure Start Time/Medication Administration: 08/28/2022 7:26 PM Staffing SUPERVISING FLOORPERSON: Molly Rosado APRN.CRNA Preparation Sterility Preparation: hand [...] August 28, 2022 TIME: 7:26 PM CSN: [id number] Clinic [facility]07-[facility]-2023 NoteHNO ID: [id number] Author: Molly Rosado APRN.SUPERVISING FLOORPERSON Service: ? Author Type: Nurse Program Project Manager Type: Anesthesia Procedure Notes Filed: 08/28/2022 6:31 PM Note Text: ANESTHESIOLOGY PROCEDURE NOTE Airway General Information Procedure Start Time/Medication Administration: 08/28/2022 6:10 PM Patient location during procedure: OR Timeout Performed Pre-procedure: timeout performed Consent Obtained: Yes Patient identity confirmed: arm band and patient Staffing SUPERVISING FLOORPERSON: Molly Rosado APRN.CRNA Indications and Patient Condition [...] August 28, 2022 TIME: 6:31 PM CSN: [id number] Clinic [facility]07-11-2023 NoteHNO ID: [id number] Author: Prema Feliz MD Service: Urology Author Type: Resident Type: Progress Notes Filed: 08/28/2022 9:47 PM Note Text: [facility] UROLOGY PROGRESS NOTE Name: Olaf Briones Bed: H050 013/H050-13 Date: 08/28/2022 After Hours [facility] Urology Service Pager: [phone] ASSESSMENT AND PLAN Olaf Briones is a 77 year old male with PMHx of HTN, HLD, DM, recent STEMI (s/p JUHI, on Brillinta and ASA), nephrolithiasis s/p ESWL remote, BPH s/p TURP 2001, transferred from [facility] for gross hematuria. Currently with 18Fr 3-way [...] pending course, in SICU Active Problems Prior CT POA: Yes - placed on ASA 81, ticagrelor 90 mg BID Nephrolithiasis POA: Yes - Monitor HLD POA: Yes - Home atorva 80 mg DM POA: Yes - SSI HTN POA: Yes - amlodipine 5mg daily, carvedilol 6.25 BID, lisinopril 2.5 mg daily Prema Feliz MD PGY-2 Resident Physician Urology Pager: [phone] For weekend or after hours issues [place] [phone] SUBJECTIVE See above Objective OBJECTIVE Vital Signs BP 112/52 Pulse 69 Temp 36.9 ?C (98.4 ?F) (Oral) Resp 18 Ht 173 cm (5' 8.11 ) Wt 75.5 kg (166 lb 7.2 oz) SpO2 97% BMI 25.23 kg/m? Input and Output Intake/Output Summary (Last 24 hours) at 08/28/20221955 Last data filed at 08/28/2022 1830 Gross per 24 hour Intake 33915 ml Output 55406 ml Net -1875 ml Physical Exam GEN: [...] Feliz MD PGY-2 Resident Physician Urology Pager: [phone] For weekend or after hours issues please page the [place] urology [place] [phone] Clinic [facility]inte [facility]07-11-2023 NoteHNO ID: [id number] Author: Prema Feliz MD Service: Urology Author Type: Resident Type: Progress Notes Filed: 08/28/2022 8:02 AM Note Text: [facility] UROLOGY PROGRESS NOTE Name: Olaf Briones Bed: H050 013/H050-13 Date: 08/28/2022 After Hours [facility] [place] [facility] Service Pager: [phone] ASSESSMENT AND PLAN Olaf Briones is a 77 year old male with PMHx of HTN, HLD, DM, recent STEMI (s/p JUHI, on Brillinta and ASA), nephrolithiasis s/p ESWL , BPH s/p TURP 2001, transferred from [facility] for gross hematuria. Currently with 18Fr 3-way [...] for cysto, fulguration today Active Problems Prior CT POA: Yes - placed on ASA 81, ticagrelor 90 mg BID Nephrolithiasis POA: Yes - Monitor HLD POA: Yes - Home atorva 80 mg DM POA: Yes - SSI HTN POA: Yes - amlodipine 5mg daily, carvedilol 6.25 BID, lisinopril 2.5 mg daily Essential elements of above plan discussed with staff, Dr. Sharon Feliz MD PGY-2 Resident Physician Urology Pager: [phone] For weekend or after hours issues [place] [phone] SUBJECTIVE See above Objective OBJECTIVE Vital Signs BP 116/57 Pulse 69 Temp 36.5 ?C (97.7 ?F) (Oral) Resp 18 Ht 173 cm (5' 8.11 ) Wt 75.5 kg (166 lb 7.2 oz) SpO2 97% BMI 25.23 kg/m? Input and Output Intake/Output Summary (Last 24 hours) at 08/28/2022721 Last data filed at 08/28/2022 0716 Gross per 24 hour Intake 19767.5 ml Output 77186 ml Net -69797.5 ml Physical Exam GEN: Alert, NAD EYES: Anicteric CV: Warm and well perfused LUNGS: Unlabored breathing on RA ABD: Soft, appropriately tender : Hernandez catheter present Labs Recent Labs 08/27/22 0710 WBC 16.24* HB 13.4 HCT 38.5* PLT 214 NA 140 K 4.3 CHLOR 105 CO2 22 BUN 17 CREAT 0.79 GLUC 197* Imaging Reviewed Prema Feliz MD PGY-2 Resident Physician Urology Pager: [phone] For weekend or after hours issues please page the [place] [phone] Clinic [facility]inte [facility]07-10-2023 NoteHNO ID: [id number] Author: Naomy Adkins MD Service: Urology Author [...] antispasmodics (ditropan, belladonna and opium suppositories, levsin, etc).[facility]07-09-2023 Evaluation + Plan noteExtracted from: Title:Urology [...] had a stent placed last saturday at [facility]. sees dr ivory Thank for consultation on [...] BPH with urinary obstruction / SNOMED CT 1711008319 / Confirmed Kidney stone / SNOMED CT 610661137 / Confirmed Weak urinary stream / SNOMED CT 648740520 / Confirmed Microscopic hematuria / SNOMED CT 833693960 / Confirmed Diabetes / SNOMED CT 763301952 / Confirmed Hypertension / SNOMED CT 1110112690 / Confirmed Prostatitis / SNOMED CT 98165632 / Confirmed BPH without urinary obstruction / SNOMED CT 6340218656 / Confirmed Gross hematuria / SNOMED CT 291962122 / Confirmed Asymptomatic microscopic hematuria / SNOMED CT 5913307904 / Confirmed, Active Problems (10) Asymptomatic microscopic hematuria BPH with urinary obstruction BPH without urinary obstruction Diabetes Gross hematuria Hypertension Kidney stone Microscopic hematuria Prostatitis Weak urinary stream Histories Past Medical History: No active or resolved past medical history items have been selected or recorded. Family History: Hypertension Father Procedure history: Cystoscopy (51364904) on 08/18/2013 at 68 Years. Comments: 10/02/2018 16:11 CORTEZT - Katie Rogers MA 11/08/200904/2006 TURP - Transurethral resection of prostate (615921575) in 2006 at 61 Years. Urodynamics (732012687) in 2006 at 61 Years. Transrectal biopsy of prostate using ultrasound (US) guidance (3933563806) in 2005 at 60 Years. ESWL - Extracorporeal shockwave lithotripsy for renal calculus (171479424) in 2000 at 55 Years. Comments: 10/02/2018 [...] Normal range of motion. Integumentary: Warm, Dry, [place]. Neurologic: Alert, Oriented, Normal sensory. Psychiatric: Cooperative, [...] % HI Lymph Auto 6.1 % LOW Jack Auto 4.9 % Eos Auto 0.9 % Basophil Auto 0.5 % Neutro Absolute 13.5 E9/L HI Lymph Absolute 0.9 E9/L LOW Jack Absolute 0.8 E9/L Eos Absolute 0.1 E9/L [...] and Plan Diagnosis Abnormal CT scan, bladder (GKL41-FD R93.41, Working, Medical). Anticoagulated by anticoagulation treatment (NAI32-PM Z79.01, Working, Medical). BPH with obstruction/lower urinary tract symptoms (LLG61-QO N40.1, Working, Medical). Gross hematuria (ACN19-QH R31.0, Discharge, Medical). S/P TURP (status post transurethral resection of prostate) (INF12-QS Z90.79, Working, Medical). Urinary retention (XFB73-DZ R33.9, Discharge, Medical). Course: Worsening, Viewed CT [...] do not currently have available here at [facility] continuously. I discussed this extensively with [...] Date:11/02/2022 08:30:00 AM Scheduled Provider:Shanna IVORY MD Location:[facility] Appointment Type:URO Office Visit [facility]07-05-2023 Hospital Discharge instructions Additional Instructions DISCHARGE [...] doctor or pharmacist, without first calling the soft crab shedder who implanted the stent. If you require [...] weight lifting, stair steppers, etc. until the soft crab shedder approves these activities. Check with the soft crab shedder on your first follow-up visit. CALL YOUR PHYSICIAN at [phone]: -If bleeding should occur from the catheter insertion site- apply pressure to the site then immediately call us. -Report any fever, redness, drainage, increased swelling, or firmness at the catheter insertion site. Some bruising or slight swelling may be present at the time of discharge. -Should arm or leg become cold, numb, white, or blue, contact the soft crab shedder immediately. -IF you should experience episodes of [...] is recommended. Please call Central Scheduling at [phone] to schedule your appointment.] The attending soft crab shedder or [facility] nurse clinician should provide you with specific instructions regarding activity, diet, medications, and further follow up for you. Follow the medication instructions provided on your discharge. If the dosages and instructions on this sheet differ from the dosage and instructions on the bottle, follow the instructions on the bottle. [facility] is not responsible for incorrect prescription information provided by the patient during their visit. Do not stop your medications without consulting your health care provider. Please take the list with you to your next doctor's appointment.[facility] Work Phone: 1(498) 504-860007-04-2023 Consult note Author Juanito Barney [facility] August 21, 2022 11:41am Note Date/Time August 21, 2022 11:41 am [facility] [address] [place] [address] Pulmonology Consult Note Signed Patient: Olaf Briones MR#: [id number] : 1945 Acct:[id number] Age/Sex: 77 / M Adm Date: 3 Loc: Room: [address] [place] [address] Type: REG [facility] Attending Dr: Steven Zamora DO [...] ST elevation in the inferior lateral leads. [employer] was activated, patient received PCI to RCA. 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 No focal deficits. [...] found to have inferior lateral ST elevation CT along with complete heart block. [employer] was activated, patient received PCI to RCA. Patient is currently doing much better with no signs or symptoms of heart block,he is on room air. Optimizing cardiac meds as per cardiology. Glycemic control DVT prophylaxis Discussed with nursing staff Documented By: Juanito Barney MD 08/21/22 113 6 Signed By: <Electronically signed by Juanito Barney MD> 08/21/22 1141 [facility] Work Phone: 1(970) 481-453607-04-2023 Progress note Author Elpidio Andres [facility] August 21, 2022 8:11am Note Date/Time August 21, 2022 8:11a m [facility] [address] [place] [address] Cardiology Progress Note Signed Patient: Olaf Briones MR#: [id number] : 1945 Acct:[id number] Age/Sex: 77 / M Adm Date: 3 Loc: Room: [address] [place] [address] Type: REG [facility] Attending Dr: Steven Zamora [...] % (Auto) 64.1 Lymph % (Auto) 26.2 Jack % (Auto) 7.9 Eos % (Auto) 1.3 Baso % (Auto) 0.5 Nucleat RBC Rel Count 0.1 Neut # (Auto) 6.9 Lymph # (Auto) 2.8 Jack # (Auto) 0.9 H Eos # (Auto) [...] MPV Neut % (Auto) Lymph % (Auto) Jack % (Auto) Eos % (Auto) Baso % (Auto) Nucleat RBC Rel Count Neut # (Auto) Lymph # (Auto) Jack # (Auto) Eos # (Auto) Baso # [...] MPV Neut % (Auto) Lymph % (Auto) Jack % (Auto) Eos % (Auto) Baso % (Auto) Nucleat RBC Rel Count Neut # (Auto) Lymph # (Auto) Jack # (Auto) Eos # (Auto) Baso # (Auto) Monocyte Dist Width PT INR APTT PHA Creatinine Clear Sodium Potassium Chloride Carbon Dioxide Anion Gap BUN Creatinine Est GFR (CKD-EPI) Glucose Calcium Total Creatine Kinase Troponin I High Sens 9010.4 H* 29015.3 H* 14346.9 H* B-Natriuretic Peptide Triglycerides Cholesterol LDL Cholesterol, Calc VLDL Cholesterol HDL Cholesterol Cholesterol/HDL Ratio 08/21/22 08/21/22 08/21/22 05:30 05:30 05:30 Corrected WBC 13.6 H Uncorrected WBC Count 13.6 H RBC 4.66 Hgb 14.6 Hct 42.7 MCV 91.6 MCH 31.4 MCHC 34.3 RDW 13.5 Plt Count 171 MPV 9.5 Neut % (Auto) 85.4 Lymph % (Auto) 8.2 Jack % (Auto) 6.1 Eos % (Auto) 0.1 Baso % (Auto) 0.2 Nucleat RBC Rel Count 0.0 Neut # (Auto) 11.7 H Lymph # (Auto) 1.1 Jack # (Auto) 0.8 Eos # (Auto) 0.0 Baso # (Auto) 0.0 Monocyte Dist Width PT INR APTT PHA Creatinine Clear 74.81 Sodium 138 Potassium 3.8 Chloride 103 Carbon Dioxide 27.1 Anion Gap 11.7 BUN 12 Creatinine 0.71 Est GFR (CKD-EPI) > 60.0 Glucose 162 H Calcium 9.4 Total Creatine Kinase Troponin I High Sens 65020.9 H* B-Natriuretic Peptide Triglycerides 124 Cholesterol 132 [...] evolution today [facility] (2) Heart block: Assessment/Problem Details: Resolved [...] signed by Elpidio Andres MD> 08/21/22 0811 [facility] Work Phone: 1(303) 162-252407-03-2023 History and physical note Author Steven Zamora [facility] August 20, 2022 6:29pm Note Date/Time August 20, 2022 6:24p m [facility] [address] [place] [address] Cardiology H&P Signed with Addenda Patient: Olaf Briones MR#: [id number] : 1945 Acct:[id number] Age/Sex: 77 / M Adm Date: 3 Loc: Room: [address] [place] [address] Type: [facility] Attending Dr: Steven Zamora DO Copies to: NON STAFF Steven Zamora DO~ ADDENDUM1 Impression: Inferolateral STEMI with change in complete heart block Plan: Proceed with emergent cath and PCI. A total of 60 minutes nonprocedural critical care time were devoted to the ER staff, review of ECG, [employer] staff, nursing staff, both patient and family [...] Discussed case with ER attending, reviewed ECGs; [employer] team activated, half amp of atropine ordered in addition to routine upstream antiplatelet and Antithrombin therapies. Patient arrived at the [employer] at 1659 underwent first balloon activation at 1724; 63 minutes doorto device time Review of Systems Review of Systems All other systems reviewed & are negative unless noted below or in HPI Constitutional Constitutional: Reports as per [facility] Eyes Eyes: Reports system reviewed and no additional complaints, except as documented ENT Ears, Nose, Mouth, and Throat: Reports system reviewed and no additional complaints, except as documented Cardiovascular Cardiovascular: Reports as per [facility], Reports chest pain at rest, Reports [...] and no additional complaints, except as documented [facility] Medical History (Updated 08/20/22 @ 16:41 by [...] x10E3/uL Lymph # (Auto) 2.8 (1.00-4.8) x10E3/uL Jack # (Auto) 0.9 H (0.0-0.8) x10E3/uL Eos [...] <Electronically signed by Steven Zamora DO> 08/20/221826 [facility] Work Phone: 1(453) 220-800707-03-2023 [facility]23 Procedure note [facility]07-03-2023 History general Narrative - Reported * Type Description Date Surgical History TURP 2022 Hospitalization History heart attack august 20 2022 [employer] Other 09-09-2022 Hospital Discharge instructions Patient Education [...] urethra. Follow these instructions at home: Take srhk-men-iugfugl and prescription medicines only as told by [...] 02/04/2006 Document Revised: 12/30/2018 Document Reviewed: 03/11/2017 [employer] Patient Education 2020 [employer]. Follow Up Care 10/21/2020 08:48:14 With:CACHORRO HAHN, Shanna R, URL Address: [address] [place] [address]- When: Unknown [facility] Franca consult note Author Juanito Barney [facility] August 21, 2022 11:41am Note Date/Time August 21, 2022 11:41 am [facility] [address] [place] [address] Pulmonology Consult Note Signed Patient: Olaf Briones MR#: [id number] : 1945 Acct:[id number] Age/Sex: 77 / M Adm Date: 3 Loc: Room: [address] [place] [address] Type: REG [facility] Attending Dr: Steven Zamora DO [...] ST elevation in the inferior lateral leads. [employer] was activated, patient received PCI to RCA. 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 No focal deficits. [...] found to have inferior lateral ST elevation CT along with complete heart block. [employer] was activated, patient received PCI to RCA. Patient is currently doing much better with no signs or symptoms of heart block,he is on room air. Optimizing cardiac meds as per cardiology. Glycemic control DVT prophylaxis Discussed with nursing staff Documented By: Juanito Barney MD 08/21/22 113 6 Signed By: <Electronically signed by Juanito Barney MD> 08/21/22 1141 [facility] Work Phone: Discharge summary Author Steven Zamora [facility] August 22, 2022 3:21pm Note Date/Time August 22, 2022 3:17p m [facility] [address] [place] [address] Discharge Summary Signed Patient: Olaf Briones MR#: [id number] : 1945 Acct:[id number] Age/Sex: 77 / M Adm Date: 3 Loc: Room: [address] [place] [address]: Steven Zamora DO Copies to: [...] % (Auto) 72.5, Lymph % (Auto) 15.9, Jack % (Auto) 9.7, Eos % (Auto) 1.6, Baso % (Auto) 0.3, Nucleat RBC Rel Count 0.1, Neut # (Auto) 6.4, Lymph # (Auto) 1.4, Jack # (Auto) 0.9 H, Eos # (Auto) [...] doctor or pharmacist, without first calling the soft crab shedder who implanted the stent. If you require [...] weight lifting, stair steppers, etc. until the soft crab shedder approves these activities. Check with the soft crab shedder on your first follow-up visit. CALL YOUR PHYSICIAN at [phone]: -If bleeding should occur from the catheter insertion site- apply pressure to the site then immediately call us. -Report any fever, redness, drainage, increased swelling, or firmness at the catheter insertion site. Some bruising or slight swelling may be present at the time of discharge. -Should arm or leg become cold, numb, white, or blue, contact the soft crab shedder immediately. -IF you should experience episodes of [...] is recommended. Please call Central Scheduling at [phone] to schedule your appointment.] The attending soft crab shedder or [facility] nurse clinician should provide you with specific instructions regarding activity, diet, medications, and further follow up for you. Follow the medication instructions provided on your discharge. If the dosages and instructions on this sheet differ from the dosage and instructions on the bottle, follow the instructions on the bottle. [facility] is not responsible for incorrect prescription [...] signed by Steven Zamora DO> 08/22/22 1521 [facility] Work Phone: Evaluation + Plan note Future Appointments Appointment Date:11/02/2022 08:30:00 AM Scheduled Provider:Shanna IVORY MD Location:[facility] Appointment Type:URO Office Visit [facility] evaluation + Plan note Future Appointments Appointment Date:03/27/2024 08:45:00 AM Scheduled Provider:Shanna IVORY MD Location:[facility] Appointment Type:URO Office Visit [facility] evaluation note* Diagnosis Onset Date Resolution Status Heart block acute ST elevation (STEMI) myocardial infarction acute Syncope acute [facility] Work Phone: Evaluation note* Diagnosis Arteriosclerotic cardiovascular disease- Primary Unspecified cardiovascular disease Abnormal EKG Nonspecific abnormal electrocardiogram (ECG) (EKG) Mixed hyperlipidemia Primary hypertension Unspecified essential hypertension Post PTCA Postsurgical percutaneous transluminal coronary angioplasty status Essential hypertension Unspecified essential hypertension BMI 26.0-26.9,adult Easy bruisability Other symptoms involving skin and integumentary tissues documented in this encounter [facility] Work Phone: Evaluation note* Diagnosis Essential hypertension- Primary Unspecified essential hypertension Arteriosclerotic cardiovascular disease Unspecified cardiovascular disease Abnormal EKG Nonspecific abnormal electrocardiogram (ECG) (EKG) Mixed hyperlipidemia Post PTCA Postsurgical percutaneous transluminal coronary angioplasty status BMI 26.0-26.9,adult Never smoked tobacco documented in this encounter [facility] Work Phone: History and physical note Author Steven Zamora [facility] August 20, 2022 6:29pm Note Date/Time August 20, 2022 6:24p m [facility] [address] [place] [address] Cardiology H&P Signed with Addenda Patient: Olaf Briones MR#: [id number] : 1945 Acct:[id number] Age/Sex: 77 / M Adm Date: 3 Loc: Room: [address] [place] [address] Type: REG [facility] Attending Dr: Steven Zamora DO Copies to: NON STAFF Steven Zamora DO~ ADDENDUM1 Impression: Inferolateral STEMI with change in complete heart block Plan: Proceed with emergent cath and PCI. A total of 60 minutes nonprocedural critical care time were devoted to the ER staff, review of ECG, [employer] staff, nursing staff, both patient and family [...] Discussed case with ER attending, reviewed ECGs; [employer] team activated, half amp of atropine ordered in addition to routine upstream antiplatelet and Antithrombin therapies. Patient arrived at the [facility] at 1659 underwent first balloon activation at [...] and no additional complaints, except as documented [facility] Medical History (Updated 08/20/22 @ 16:41 by [...] x10E3/uL Lymph # (Auto) 2.8 (1.00-4.8) x10E3/uL Jack # (Auto) 0.9 H (0.0-0.8) x10E3/uL Eos [...] <Electronically signed by Steven Zamora DO> 08/20/221826 [facility] Work Phone: History of Present [...] notify me with change in cardiac status [facility] 250 DO Work Phone: History of [...] notify me with change in cardiac status [facility] 250 DO Work Phone: History of [...] he developed hematuria ultimately went to the [facility] where he underwent TURP and removal [...] me change in cardiac status or symptoms [facility] 250 DO Work Phone: Hospital course Narrative No data available for this section [facility] Hospital Discharge instructions No data available for this section [facility] data available for this section [facility] progress note Author Elpidio Andres [facility] August 21, 2022 8:11am Note Date/Time August 21, 2022 8:11a m [facility] [address] [place] [address] Cardiology Progress Note Signed Patient: Olaf Briones MR#: [id number] : 1945 Acct:[id number] Age/Sex: 77 / M Adm Date: 3 Loc: Room: [address] [place] [address] Type: REG [facility] Attending Dr: Steven Zamora [...] % (Auto) 64.1 Lymph % (Auto) 26.2 Jack % (Auto) 7.9 Eos % (Auto) 1.3 Baso % (Auto) 0.5 Nucleat RBC Rel Count 0.1 Neut # (Auto) 6.9 Lymph # (Auto) 2.8 Jack # (Auto) 0.9 H Eos # (Auto) [...] MPV Neut % (Auto) Lymph % (Auto) Jack % (Auto) Eos % (Auto) Baso % (Auto) Nucleat RBC Rel Count Neut # (Auto) Lymph # (Auto) Jack # (Auto) Eos # (Auto) Baso # [...] MPV Neut % (Auto) Lymph % (Auto) Jack % (Auto) Eos % (Auto) Baso % (Auto) Nucleat RBC Rel Count Neut # (Auto) Lymph # (Auto) Jack # (Auto) Eos # (Auto) Baso # (Auto) Monocyte Dist Width PT INR APTT PHA Creatinine Clear Sodium Potassium Chloride Carbon Dioxide Anion Gap BUN Creatinine Est GFR (CKD-EPI) Glucose Calcium Total Creatine Kinase Troponin I High Sens 9010.4 H* 02355.3 H* 83445.9 H* B-Natriuretic Peptide Triglycerides Cholesterol LDL Cholesterol, Calc VLDL Cholesterol HDL Cholesterol Cholesterol/HDL Ratio 08/21/22 08/21/22 08/21/22 05:30 05:30 05:30 Corrected WBC 13.6 H Uncorrected WBC Count 13.6 H RBC 4.66 Hgb 14.6 Hct 42.7 MCV 91.6 MCH 31.4 MCHC 34.3 RDW 13.5 Plt Count 171 MPV 9.5 Neut % (Auto) 85.4 Lymph % (Auto) 8.2 Jack % (Auto) 6.1 Eos % (Auto) 0.1 Baso % (Auto) 0.2 Nucleat RBC Rel Count 0.0 Neut # (Auto) 11.7 H Lymph # (Auto) 1.1 Jack # (Auto) 0.8 Eos # (Auto) 0.0 Baso # (Auto) 0.0 Monocyte Dist Width PT INR APTT PHA Creatinine Clear 74.81 Sodium 138 Potassium 3.8 Chloride 103 Carbon Dioxide 27.1 Anion Gap 11.7 BUN 12 Creatinine 0.71 Est GFR (CKD-EPI) > 60.0 Glucose 162 H Calcium 9.4 Total Creatine Kinase Troponin I High Sens 49187.9 H* B-Natriuretic Peptide Triglycerides 124 Cholesterol 132 [...] [facility] (2) Heart block: Assessment/Problem Details: Resolved [...] signed by Elpidio Andres MD> 08/21/22 0811 [facility] Work Phone: Reason for referral (narrative)* Consultation (Routine) - Authorized Specialty Diagnoses / Procedures Referred By Contac t Referred To Contact Cardiology Diagnoses Arteriosclerotic cardiovascular disease Abnormal EKG Mixed hyperlipidemia Procedures Follow Up In Cardiology Ashutosh Ling MD [address] [facility] 2, [place] [address] [place] [address] Ashutosh Ling MD [address] [place] [address] 2, [address] [address] Referral ID Status Reason Start Date Expiration Date V isits Requested Visits Authorized [id number] Authorized 01/09/2023 01/09/2024 1 1 [facility] Work Phone: Reason for referral (narrative)* Consultation (Routine) - Authorized Specialty Diagnoses / Procedures Referred By Mellissa shin Referred To Contact Cardiology Diagnoses Arteriosclerotic cardiovascular disease Procedures Follow Up In Cardiology Ashutosh Ling MD [address] [place] [address] 2, [address] [address] Ashutosh Ling MD [address] [place] [address] 2, [address] [address] Referral ID Status Reason Start Date Expiration Date V isits Requested Visits Authorized [id number] Authorized 06/26/2023 06/25/2024 [address] [facility] Work Phone: Family History Unknown Family Member Name Dates Details Family [...] for Testing Results. Summary Purpose Advance Directives Advance Directive Response Recorded Date/ Time Advance [...] 6m Specialty Diagnoses / Procedures Referred By Contac t Referred To Contact Cardiology Diagnoses Arteriosclerotic cardiovascular disease Abnormal EKG Mixed hyperlipidemia Procedures Follow Up In Cardiology Ashutosh Ling MD [address] [facility] 2, [address] [address] Ashutosh Ling MD [facility] [facility] 2, [address] [address] Referral ID Status Reason Start Date Expiration Date V isits Requested Visits Authorized [id number] Authorized 01/09/2023 01/09/2024 1 1 Care Team (unrecognized sect ion and content) Personnel Name: DAV PEGUERO MD Address: Address: [address] [place] [address] Team Status: Active Member Role Status Dates [...] Active Steven Zamora DO Attending Provider Active Supervisor Graphite Relationship Specialty Start Date End Date Jame Barraza MD [address] [phone] PCP - General Family Medicine 08/31/22 Supervisor Graphite Relationship Specialty Start Date End Date Jame Barraza MD [address] [phone] PCP - General Family Medicine 08/31/22 Supervisor Graphite Relationship Specialty Start Date End Date Ashutosh Ling MD [address] [facility] [address], [address] [address] PCP - [employer] PCP 08/18/22 Dav Peguero MD [address] [place] [address] [place] [address] PCP - General Family Medicine 01/09/23 Supervisor Graphite Relationship Specialty Start Date End Date Dav Peguero MD PCP - General Family Medicine 01/09/23 (unrecognized sect ion and content) No Status Records FoundNo Status Records FoundNo Status Records FoundNo Status Records FoundNo Status Records FoundNo Status Records FoundNo Status Records FoundNo Status Records FoundNo Status Records Found INFORMATION SOURCE (unrecogn ized section and content) DATE CREATED AUTHOR 11/15/2021 [facility] DATE CREATED AUTHOR AUTHOR'S ORGANIZ ATION 09/01/2022 [facility] DATE CREATED AUTHOR AUTHOR'S ORGANIZ ATION 09/06/2022 [employer] DATE CREATED AUTHOR AUTHOR'S ORGANIZ ATION 09/07/2022 [facility] DATE CREATED AUTHOR AUTHOR'S ORGANIZ ATION 10/10/2022 [facility] DATE CREATED AUTHOR AUTHOR'S ORGANIZ ATION 06/19/2023 [facility] DATE CREATED AUTHOR AUTHOR'S ORGANIZ ATION 06/28/2023 [facility] DATE CREATED AUTHOR AUTHOR'S ORGANIZ ATION 08/01/2023 [facility] DATE CREATED AUTHOR AUTHOR'S ORGANIZ ATION 12/01/2023 [facility] Goals (unrecognized section and content) Goals may be documented in a n alternate section Source Comments (unrecognize d section and content) In the event this informatio n is protected by the Federal Confidentiality of Alcohol and Drug Abuse Patient Records regulations: The Federal rules restrict any use of the information to criminally investigate or prosecute any alcohol or drug abuse patient.[facility] the event this information is protected by the Federal Confidentiality of Alcohol and Drug Abuse Patient Records regulations: The Federal rules restrict any use of the information to criminally investigate or prosecute any alcohol or drug abuse patient.[facility] FOR RECORDS PERTAINING TO PATIENTS WHO [...] BE BASED ON THE PRIMARY CLINICAL RECORDS. [employer] [facility]. provides no warranty or guarantee of the accuracy or completeness of information in this document.
--- OUTSIDE RECORDS SUMMARY | 2023-12-13 11:44 | XMS_ITS | CCD ---
Author Organization [facility] CliniSyne Care Team Providers Care Customer Supply Coordinator Name Role Phone Jame Barraza Unavailable Unavailable Unavailable JAME BARRAZA Primary Care Physician DR SHANNA IVORY Attending Unavailable CHRISTI, DR JAME Bowers Primary Care Unavailable DR SHANNA IVORY Admitting Unavailable DR SHANNA IVORY Consulting Unavailable BONDUEL, DR AMNA Saucedo Consulting Unavailable DOMINGUEZ GUTIERREZ Admitting Unavailable DOMINGUEZ GUTIERREZ Attending Unavailable DR JAME BARRAZA Primary Care Unavailable NON STAFF Primary Care Provider Unavailsigrid Cochran DO [facility] Emergency Provider DO Steven Zamora Attending Provider [phone] NON STAFF Primary Care Provider Unavailsigrid Cochran DO [facility] Emergency Provider [phone] DO Steven Zamora Admit Provider [phone] DO Steven Zamora Attending Provider MD Juanito Barney Other Provider JAME BARRAZA Primary Care Physician Steven Zamora Admitting Unavailable Steven Zamora Attending Unavailable NON STAFF Primary Care Unavailable Juanito Barney Consulting Unavailable Jame Barraza MD Primary Care Provider [phone] Nahomi Hernandez Unavailable DAVID ANDREWS Attending Unavailable [...] Siddiqui, Estella Unavailable Ashutosh Ling MD Unavailable Dav Peguero MD Primary Care Provider DAV PEGUERO Attending Unavailable DAV PEGUERO Attending Unavailable LUCINDA VICKERS Attending Unavailable Anat HAHN, Dav [facility] Primary Care Provider ASHUTOSH LING [...] Attending Unavailable DAV PEGUERO Primary Care Physician Allergies Allergy Classification Reported Allergen(s) Allergy Type Date of Onset Reaction(s) Facility (20 sources) Albuterol; Translations: [albuterol] Drug Allergy 11-12-19 12 Headache (finding), Other: See Comments, Headache [facility] (19 sources) hydroCHLOROthiazide; Translations: [hydroCHLOROthiazide TABS] Drug Allergy 08-21-19 23 Eruption of skin (disorder), Rash [facility] (5 sources) Sulfamethoxazole / Trimethoprim; Translations: [sulfamethoxazole-trim ethoprim] Drug Allergy Unknown (qualifier value) [facility] (1 source) Albuterol Drug Allergy [facility] Repository (6 sources) hydroCHLOROthiazide; Translations: [HYDROCHLOROTHIAZIDE] Drug Allergy 08-21-19 23 Rash [facility] Repository (2 sources) Adhesive Tape; Translations: [adhesive tape] Propensity to adverse reactions 08-22-19 Rash [facility] (1 source) Albuterol Drug Allergy 08-21-19 [facility] Repository (1 source) hydroCHLOROthiazide Drug Allergy 08-21-19 [facility] Repository (2 sources) Amoxicillin; Translations: [amoxicillin] Drug Allergy Blood in urine (finding) [facility] Repository Medications Current Medications Medication Drug Class(es) [...] Coronary arteriosclerosis; Translations: [Atherosclerotic heart disease of sycuan coronary artery without angina pectoris] Onset: 08-27-2022 [...] source) Long-term current use of anticoagulant; 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 ? Take somz-ssm-ofpzppy and prescription medicines (more content not included)... Normal [facility] Urology Office/Clinic Noteon 11-29-2023 Urology Office/Clinic Note Urology Office/Clinic Note Chief Complaint kidney stone, BPH HPI Staff 1 yr w/ KUB. Previous dx: BPH with obstruction, kidney stone, AMH. S/p TURP 08/28/22 at [facility]. *Allopurinol 300mg qd Dysuria: denies Incomplete bladder [...] obscured. Stone Analysis 08/28/22 - 50% CaOx Ralls, 40% CaOx Di, and 10% minor components. [...] TURP 2006. [1] S/p TURP 08/28/22 at [facility]. Not taking any prostate or bladder meds. Voiding well. 3. Erectile dysfunction (N52.9: Male erectile dysfunction, unspecified) Shares unable to achieve erection after second TURP, was able to achieve after first TURP. Explained potential cause of this (extensive coagulation from bleeding.). 4. Asymptomatic microscopic hematuria (R31.21: Asymptomatic microscopic hematuria) Chronic [1]. Pt unable to provide urine sample today. 5. 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 Also Aspirin qod. Follow-up With When Contact Information CACHORRO HAHN, Shanna Sánchez, URL [facility] [address], [place] [address]- Additional Instructions: 4 mos with metabolic workup [...] renal ca (more content not included)... Normal [facility] Comment on above: Result Comment: Elec tronically Signed By: Shanna IVORY MD\.br\Date and Time Signed: 11/29/23 09:53 EDT\.br\Electronically Co-Signed By: Cathi Ivan\.br\Date and Time Co-Signed: 11/29/23 09:47 EDT Sea 09-06-2022 CNPN Telephone (UROLMN) -- OLAF BRIONES ([id number]) 1945 M Date Time Provider Department 09/06/22 JUSTINE WILSON During your visit today, we recorded the following information about you: Justine Wilson RN 09/06/2022 10:31 AM Signed ----- Message from Jocelin Gr sent at 09/06/2022 8:23 AM EDT ----- Regarding: medciation script needed Contact: Pt is calling in to see if the flomax can be called in. The pharmacy is not at [facility]. I will need to call them when [...] Hematuria [R31.9] 08/27/2022 Coronary artery disease involving sycuan hinton*08/27/2022 Adverse reaction to antiplatelet agent [T45.7X5*08/27/2022 Myocardial infarction (HCC) [I21.9] 08/27/2022 Essential (primary) hypertension [I10] 08/27/2022 Type 2 diabetes mellitus without complication, *08/27/2022 Leukocytosis [D72.829] 08/27/2022 Malnutrition of mild degree (HCC) [E44.1] 08/29/2022 Encounter Status:Closed by JUSTIEN WILSON RN on 09/06/22 Normal [facility] Office Visit (Cardiology)on 09-05-2022 Follow-up visit [...] Status: Hold For - Scheduling Requested for: 11Vjp0121 Agreement : I agree to have my patient participate in the phase III outpatient cardiac rehabilitation program after completion of the phase II program. Consent : I consent to have my patient participate in the cardiac rehabilitation program. I will continue regular medical care of my patient throughout his/her participation in the program. Individualized Treatment Plan and Exercise Prescription : Request the Project Hire to share responsibility for developing an ITP [...] in adult Healthy Weight Tips; Status:Complete; Done: [id number] Some eating tips that can help you lose weight.; Status:Complete; Done: 05Ztv8586 SocHx: Former smoker Tobacco Use Screening; Status:Complete; Done: 45Pgx6496 Patient Instructions Please bring all medicines, vitamins, [...] he developed hematuria ultimately went to the [facility] where he underwent TURP and removal [...] 1 TABLET (more content not included)... Normal [employer] Tobacco Screening.on 023 Adult depression screening assessment No [facility] ishBowl DO Work Phone: Fall risk assessment a) No falls within the last year [facility] [employer] 250 DO Work Phone: Tobacco use status CPHS b) No M [facility] Heart-Sandu eduardo 250 DO Work Phone: Sea 09-04-2022 CNPN Telephone (PODCCP) -- OLAF BRIONES ([id number]) 1945 M Date Time Provider Department 09/04/22 DEBORAH IBARRA PODCCP During your visit today, we recorded the following information about you: Deborah Ibarra RN 09/04/2022 12:52 PM Signed PATIENT INFORMATION Record ID: [id number] Patient Name: [facility]: [facility] [place]: [facility] [place] Attending: David Andrews Center: Urology INSTRUCTIONS SN to remind patient of appointment date, time, location All Clear All Clear SURVEY INFORMATION Medical/Nurse Cloth Dyeing Range Tender: Deborah Ibarra 1. Your discharge instructions are [...] Reason for Visit: Follow Up Phone Call [5017] Cmt: All Clear Prescriptions as of 09/04/2022 [...] Hematuria [R31.9] 08/27/2022 Coronary artery disease involving sycuan hinton*08/27/2022 Adverse reaction to antiplatelet agent [T45.7X5*08/27/2022 Myocardial infarction (HCC) [I21.9] 08/27/2022 Essential (primary) hypertension [I10] 08/27/2022 Type 2 diabetes mellitus without complication, *08/27/2022 Leukocytosis [D72.829] 08/27/2022 Malnutrition of mild degree (HCC) [E44.1] 08/29/2022 Encounter Status:Closed by DEBORAH IBARRA on 09/04/22 Normal [facility] CBC panel Auto (Bld)on 08-31 Erythrocyte distribution width (RBC) [Ratio] 12.8 % Normal 11.5-15.0 [facility] Comment on above: Order Comment: Speci men Type: BLOOD SPECIMENOrdering Facility: [facility] Address: [address] [place] [address] Performed By: #### 5 8410-2 ####[facility] LABCLIA [id number] [address] [place] Hematocrit (Bld) [Volume fraction] 30.7 % Low 39.0-51.0 [facility] Comment on above: Order Comment: Speci men Type: BLOOD SPECIMENOrdering Facility: [facility] Address: [address] [place] [address] Performed By: #### 5 8410-2 ####[facility] LABIA [id number] [address] STATES OF [facility] Hemoglobin (Bld) [Mass/Vol] 10.4 g/dL Low 13.0-17.0 [facility] Comment on above: Order Comment: Speci men Type: BLOOD SPECIMENOrdering Facility: [facility] Address: [address] [place] [address] Performed By: #### 5 8410-2 ####[facility] LABIA [id number] [address] STATES OF [facility] MCH (RBC) [Entitic mass] 31.4 pg Normal 26.0-34.0 [facility] Comment on above: Order Comment: Speci men Type: BLOOD SPECIMENOrdering Facility: [facility] Address: [address] [place] [address] Performed By: #### 5 8410-2 ####[facility] LABIA [id number] [address] [place] MCHC (RBC) [Mass/Vol] 33.9 g/dL Normal 30.5-36.0 [facility] Comment on above: Order Comment: Speci men Type: BLOOD SPECIMENOrdering Facility: [facility] Address: [address] [place], [place] [address] Performed By: #### 5 8410-2 ####[facility] LABIA [id number] [place] [address] [place] MCV (RBC) [Entitic vol] 92.7 fL Normal 80.0-100.0 C [facility] Comment on above: Order Comment: Speci men Type: BLOOD SPECIMENOrdering Facility: [facility] Address: [address] Performed By: #### 5 8410-2 ####[facility] LABIA [id number] [place] [address] [place] Nucleated RBC (Bld) [#/Vol] 10*3/uL Normal <0.01 [facility] Comment on above: Order Comment: Speci men Type: BLOOD SPECIMENOrdering Facility: [facility] Address: [address] Performed By: #### 5 8410-2 ####[facility] LABIA [id number] [place] [address] [place] Platelet mean volume (Bld) [Entitic vol] 11.5 fL Normal 9.0-12.7 [facility] Comment on above: Order Comment: Speci men Type: BLOOD SPECIMENOrdering Facility: [facility] Address: [address] Performed By: #### 5 8410-2 ####[facility] LABIA [id number] [place] [address] [place] Platelets (Bld) [#/Vol] 194 10*3/uL Normal 150-400 [facility] Comment on above: Order Comment: Speci men Type: BLOOD SPECIMENOrdering Facility: [facility] Address: [address] [place] [address] Performed By: #### 5 8410-2 ####[facility] LABIA [id number] [place] [address] [place] RBC (Bld) [#/Vol] 3.31 10*6/uL Low 4.20-6.00 [facility] Comment on above: Order Comment: Speci men Type: BLOOD SPECIMENOrdering Facility: [facility] Address: [address] [place] [address] Performed By: #### 5 8410-2 ####[facility] LABCLIA [id number] [address] [address] [place] [facility] [place] WBC (Bld) [#/Vol] 10.56 10*3/uL Normal 3.70-11.00 [facility] Comment on above: Order Comment: Speci men Type: BLOOD SPECIMENOrdering Facility: [facility] Address: [address] [place] [place] [address] Performed By: #### 5 8410-2 ####[facility] LABCLIA [id number] [address] [address] [facility] CNDSon 08-31-2022 CNDS HNO ID: [id number] Author: David Andrews MD Service: Urology Author [...] stable in SICU, ready to transfer to [facility]. Hernandez light pink on traction. Discontinued on Zosyn given negative blood and urine cultures. - DOA#3/POD#2: Hemoglobin continues to be stable. Urine light pink off traction. Transferred to [facility] - DOA#4/POD#3: Will discharge today with [...] Your Medications These medications were sent to [facility] [address] [place] [address] Hours: Saturday-Saturday 7am-8pm, Saturday, Saturday and Holidays [...] August 31, 2022 TIME: 8:41 AM [facility] STAFF PHYSICIAN NOTE OF PERSONAL INVOLVEMENT [...] care coordinatio (more content not included)... Normal [facility] Comprehensive metabolic 2000 panelon 08-31-2022 Albumin [Mass/Vol] 3.8 g/dL Low 3.9-4.9 [facility] Comment on above: Order Comment: Specherbie tay Type: BLOOD SPECIMENOrdering Facility: [facility] Address: [address] [place], [place] [address] Performed By: #### 2 4323-8, , 2776-02 ####[facility] LABCLIA [id number] [place] [address] [place] ALP [Catalytic activity/Vol] 116 U/L High 38-113 [facility] Comment on above: Order Comment: Speci men Type: BLOOD SPECIMENOrdering Facility: [facility] Address: [address] [place] [address] Performed By: #### 2 4323-8, , 2776-02 ####[facility] LABCLIA [id number] [place] [id number] [place] ALT [Catalytic activity/Vol] 23 U/L Normal 10-54 [facility] Comment on above: Order Comment: Speci men Type: BLOOD SPECIMENOrdering Facility: [facility] Address: [address] Performed By: #### 2 4323-8, , 2776-02 ####[facility] LABCLIA [id number] [place] [address] [place] Anion gap [Moles/Vol] 9 mmol/L Normal 9-18 [facility] Comment on above: Order Comment: Speci men Type: BLOOD SPECIMENOrdering Facility: [facility] Address: [address] Performed By: #### 2 4323-8, , 2776-02 ####[facility] LABCLIA [id number] [place] [address] [place] AST [Catalytic activity/Vol] 19 U/L Normal 14-40 [facility] Comment on above: Order Comment: Speci men Type: BLOOD SPECIMENOrdering Facility: [facility] Address: [address] Performed By: #### 2 4323-8, , 2776-02 ####[facility] LABCLIA [id number] [place] [address] [place] Bilirubin [Mass/Vol] 0.3 mg/dL Normal 0.2-1.3 [facility] Comment on above: Order Comment: Speci men Type: BLOOD SPECIMENOrdering Facility: [facility] Address: [address] Performed By: #### 2 4323-8, , 2776-02 ####[facility] LABCLIA [id number] [place] [address] [place] Calcium [Mass/Vol] 9.1 mg/dL Normal 8.5-10.2 [facility] Comment on above: Order Comment: Speci men Type: BLOOD SPECIMENOrdering Facility: [facility] Address: [address] [place] [address] Performed By: #### 2 4323-8, , 2776-02 ####[facility] LABCLIA [id number] [place] [address] [place] Chloride [Moles/Vol] 105 mmol/L Normal 97-105 [facility] Comment on above: Order Comment: Speci men Type: BLOOD SPECIMENOrdering Facility: [facility] Address: [address] [place] [address] Performed By: #### 2 4323-8, , 2776-02 ####[facility] LABCLIA [id number] [place] [address] [place] CO2 [Moles/Vol] 25 mmol/L Normal 22-30 [facility] Comment on above: Order Comment: Speci men Type: BLOOD SPECIMENOrdering Facility: [facility] Address: [address] [place] [address] Performed By: #### 2 4323-8, , 2776-02 ####[facility] LABCLIA [id number] [place] [address] [place] Creatinine [Mass/Vol] 0.88 mg/dL Normal 0.73-1.22 [facility] Comment on above: Order Comment: Speci men Type: BLOOD SPECIMENOrdering Facility: [facility] Address: [address] [place] [address] Performed By: #### 2 4323-8, , 2776-02 ####[facility] LABCLIA [id number] [place] [address] [place] ESTIMATED GLOMERULAR FILTRATION RATE 89 mL/min/1.73m??? Normal >=60 [facility] Comment on above: Order Comment: Speci men Type: BLOOD SPECIMENOrdering Facility: [facility] Address: [address] [place] [address] Result Comment: Mariaelena mated Glomerular Filtration Rate [...] Performed By: #### 2 4323-8, , 2776-02 ####[facility] LABIA [id number] [place] [id number] [place] Glucose [Mass/Vol] 114 mg/dL High 74-99 [facility] Comment on above: Order Comment: Speci men Type: BLOOD SPECIMENOrdering Facility: [facility] Address: [address] [place] [address] Result Comment: The [place] Diabetes Association (ADA) provides guidance for cutoff [...] Standards of Medical Care in Diabetes 2016, [place] Diabetes Association. Diabetes Care. 2016.39(Suppl 1). Performed By: #### 2 4323-8, , 2776-02 ####[facility] LABIA [id number] [address] [address] [place] Potassium [Moles/Vol] 4.2 mmol/L Normal 3.7-5.1 [facility] Comment on above: Order Comment: Speci men Type: BLOOD SPECIMENOrdering Facility: [facility] Address: [address] [place] [address] Performed By: #### 2 4323-8, 74933-2, 2776-02 ####[facility] LABCLIA [id number] [address] [address] [place] Protein [Mass/Vol] 6.1 g/dL Low 6.3-8.0 [facility] Comment on above: Order Comment: Speci men Type: BLOOD SPECIMENOrdering Facility: [facility] Address: [address] [place] [id number] Performed By: #### 2 4323-8, , 2776-02 ####[facility] LABCLIA [id number] [place] [address] [place] Sodium [Moles/Vol] 139 mmol/L Normal 136-144 [facility] Comment on above: Order Comment: Speci men Type: BLOOD SPECIMENOrdering Facility: [facility] Address: [address] [place], [place] [address] Performed By: #### 2 4323-8, , 2776-02 ####[facility] LABCLIA [id number] [place] [address] [place] Urea nitrogen [Mass/Vol] 21 mg/dL Normal 9-24 [facility] Comment on above: Order Comment: Speci men Type: BLOOD SPECIMENOrdering Facility: [facility] Address: [address] [place] [address] Performed By: #### 2 4323-8, , 2776-02 ####[facility] LABCLIA [id number] [place] [address] [place] Magnesium SerPl-mCncon 08-31 Magnesium [Mass/Vol] 2.2 mg/dL Normal 1.7-2.3 [facility] Comment on above: Order Comment: Speci men Type: BLOOD SPECIMENOrdering Facility: [facility] Address: [address] [place] [address] Performed By: #### 2 4323-8, 25100-2, 2777-1 ####[facility] LABCLIA [id number] [place] [address] [place] PT panel Coag (PPP)on 2022 INR Coag (PPP) [Relative time] 1.0 {INR} Normal 0.9-1.3 [facility] Comment on above: Order Comment: Speci men Type: BLOOD SPECIMENOrdering Facility: [facility] Address: [address] [place] [address] Result Comment: Mago min K Antagonist (VKA) Therapeutic Range: INR 2 to 3 (Target INR of 2.5) Note: For patients treated with VKA drugs, such as warfarin, the [place] [employer] 2012 Guideline recommends [...] 70: 252-289 Performed By: #### 3 4528-0, 49911-9 ####[facility] LABCLIA [id number] [place] [address] [place] PT Coag (PPP) [Time] 10.4 s Normal 9.7-13.0 [facility] Comment on above: Order Comment: Speci men Type: BLOOD SPECIMENOrdering Facility: [facility] Address: [address] [place] [address] Performed By: #### 3 4528-0, 79994-5 ####[facility] LABCLIA [id number] [place] [address] [facility] [place] Phosphate SerPl-mCncon 08-31 Phosphate [Mass/Vol] 3.6 mg/dL Normal 2.7-4.8 [facility] Comment on above: Order Comment: Speci men Type: BLOOD SPECIMENOrdering Facility: [facility] Address: [address] [place] [address] Performed By: #### 2 4323-8, 74674-3, 2777-1 ####[facility] LABCLIA [id number] [address] OF [facility] THERAPY NTon 08-31-2022 THERAPY NT HNO ID: [id number] Author: Jenna Duggan PT Service: Physical Therapy Author Type: Physical Therapist Type: Therapy (PT/OT/Speech/Resp) Filed: 08/31/2022 10:55 AM Note Text: Physical Therapy Treatment SERVICE DATE: 08/31/2022 SERVICE TIME: 0940 to 1003 ROOM: [place] [address] Recommended Discharge Disposition: Home Anticipated Discharge Needs: [...] DM, recent STEMI (08/20/2022), transferred from [facility] for gross hematuria. Currently with 18Fr 3-way catheter on CBI. 08/28/22: s/p cystoscopy, clot evacuation, cystolitholapaxy, TURP. Admitted to SICU postoperatively due to pressor requirements and risk of hyponatremia due to length of TURP. 22Fr [address] hernandez placed introp, on traction and CBI. Reason for Hospital Admission: Pt 77y/o male transferred from [facility] for gross hematuria secondary to recent [...] Diagnosis: Reduced mobility-other Interventions Provided: Gait Training (37886) Gait Training (96709) Treatment Minutes: 23 $ Gait Training (22057) Billed Units: 2 units Training AND Education Provided in: Benefits of In-Hospital Mobility, Bed Mobility, Energy Conservation, Equipment, Exercise Program, Expected Functional Level, Gait Pattern, Reduction of Deviations, Patient Exercise/Therapy Program Support Needs, Positioning, Precautions/Restrictions, Role of Physical Therapy, Standing Balance, (more content not included)... Normal [facility] aPTT PPPon 08-31-2022 aPTT Coag (PPP) [Time] 25.2 s Normal 23.0-32.4 [facility] Comment on above: Order Comment: Speci men Type: BLOOD SPECIMENOrdering Facility: [facility] Address: [address] [place] [address] Performed By: #### 3 4528-0, 26294-3 ####[facility] LABCLIA [id number] [place] [address] [place] CBC panel Auto (Bld)on 08-30 Erythrocyte distribution width (RBC) [Ratio] 12.7 % Normal 11.5-15.0 [facility] Comment on above: Order Comment: Speci men Type: BLOOD SPECIMENOrdering Facility: [facility] Address: [address] [place] [address] Performed By: #### 5 8410-2 ####[facility] LABCLIA [id number] [place] [address] [place] Hematocrit (Bld) [Volume fraction] 30.5 % Low 39.0-51.0 [facility] Comment on above: Order Comment: Speci men Type: BLOOD SPECIMENOrdering Facility: [facility] Address: [address] [place] [address] Performed By: #### 5 8410-2 ####[facility] LABIA [id number] [address] [place] Hemoglobin (Bld) [Mass/Vol] 10.4 g/dL Low 13.0-17.0 [facility] Comment on above: Order Comment: Speci men Type: BLOOD SPECIMENOrdering Facility: [facility] Address: [address] [place], [place] [address] Performed By: #### 5 8410-2 ####[facility] LABIA [id number] [address] [place] MCH (RBC) [Entitic mass] 31.7 pg Normal 26.0-34.0 [facility] Comment on above: Order Comment: Speci men Type: BLOOD SPECIMENOrdering Facility: [facility] Address: [address] [place], [place] [address] Performed By: #### 5 8410-2 ####[facility] [id number] [address] [place] MCHC (RBC) [Mass/Vol] 34.1 g/dL Normal 30.5-36.0 [facility] Comment on above: Order Comment: Speci men Type: BLOOD SPECIMENOrdering Facility: [facility] Address: [address] [place], [place] [address] Performed By: #### 5 8410-2 ####[facility] LABIA [id number] [address] [place] MCV (RBC) [Entitic vol] 93.0 fL Normal 80.0-100.0 [facility] Comment on above: Order Comment: Speci men Type: BLOOD SPECIMENOrdering Facility: [facility] Address: [address] [place], [place] [address] Performed By: #### 5 8410-2 ####[facility] LABIA [id number] [place] [address] [place] Nucleated RBC (Bld) [#/Vol] 10*3/uL Normal <0.01 [facility] Comment on above: Order Comment: Speci men Type: BLOOD SPECIMENOrdering Facility: [facility] Address: [address] [place] [address] Performed By: #### 5 8410-2 ####[facility] LABIA [id number] [place] [address] [place] Platelet mean volume (Bld) [Entitic vol] 11.6 fL Normal 9.0-12.7 [facility] Comment on above: Order Comment: Speci men Type: BLOOD SPECIMENOrdering Facility: [facility] Address: [address] [place] [address] Performed By: #### 5 8410-2 ####[facility] LABIA [id number] [place] [address] [place] Platelets (Bld) [#/Vol] 192 10*3/uL Normal 150-400 [facility] Comment on above: Order Comment: Speci men Type: BLOOD SPECIMENOrdering Facility: [facility] Address: [address] [place], [place] [address] Performed By: #### 5 8410-2 ####[facility] LABIA [id number] [place] [address] [place] RBC (Bld) [#/Vol] 3.28 10*6/uL Low 4.20-6.00 [facility] Comment on above: Order Comment: Speci men Type: BLOOD SPECIMENOrdering Facility: [facility] Address: [address] [place], [place] [address] Performed By: #### 5 8410-2 ####[facility] LABCLIA [id number] [place] [address] [place] WBC (Bld) [#/Vol] 15.06 10*3/uL High 3.70-11.00 [facility] Comment on above: Order Comment: Speci men Type: BLOOD SPECIMENOrdering Facility: [facility] Address: [address] [place] [address] Performed By: #### 5 8410-2 ####[facility] LABCLIA [id number] [place] [address] [place] Comprehensive metabolic 2000 panelon 08-30-2022 Albumin [Mass/Vol] 3.4 g/dL Low 3.9-4.9 [facility] Comment on above: Order Comment: Speci men Type: BLOOD SPECIMENOrdering Facility: [facility] Address: [address] [place] [address] Performed By: #### 2 4323-8, , 2776- ####[facility] LABCLIA [id number] [place] [address] [place] ALP [Catalytic activity/Vol] 105 U/L Normal 38-113 [facility] Comment on above: Order Comment: Speci men Type: BLOOD SPECIMENOrdering Facility: [facility] Address: [address] [place] [address] Performed By: #### 2 4323-8, , 2776-02 ####[facility] LABIA [id number] [address] [place] ALT [Catalytic activity/Vol] 18 U/L Normal 10-54 [facility] Comment on above: Order Comment: Speci men Type: BLOOD SPECIMENOrdering Facility: [facility] Address: [address] [place] [address] Performed By: #### 2 4323-8, , 2776-02 ####[facility] LABCLIA [id number] [place] [address] [place] Anion gap [Moles/Vol] 11 mmol/L Normal 9-18 [facility] Comment on above: Order Comment: Speci men Type: BLOOD SPECIMENOrdering Facility: [facility] Address: [address] [place] [address] Performed By: #### 2 4323-8, , 2776-02 ####[facility] LABCLIA [id number] [place] [address] [place] AST [Catalytic activity/Vol] 16 U/L Normal 14-40 [facility] Comment on above: Order Comment: Speci men Type: BLOOD SPECIMENOrdering Facility: [facility] Address: [address] [place] [address] Performed By: #### 2 4323-8, , 2776-02 ####[facility] LABCLIA [id number] [place] [address] [place] Bilirubin [Mass/Vol] 0.3 mg/dL Normal 0.2-1.3 [facility] Comment on above: Order Comment: Speci men Type: BLOOD SPECIMENOrdering Facility: [facility] Address: [address] [place] [address] Performed By: #### 2 4323-8, , 2776-02 ####[facility] LABCLIA [id number] [place] [address] [place] Calcium [Mass/Vol] 8.9 mg/dL Normal 8.5-10.2 [facility] Comment on above: Order Comment: Speci men Type: BLOOD SPECIMENOrdering Facility: [facility] Address: [address] Performed By: #### 2 4323-8, , 2776-02 ####[facility] LABCLIA [id number] [place] [address] [place] Chloride [Moles/Vol] 103 mmol/L Normal 97-105 [facility] Comment on above: Order Comment: Speci men Type: BLOOD SPECIMENOrdering Facility: [facility] Address: [address] [place] [address] Performed By: #### 2 4323-8, , 2776-02 ####[facility] LABCLIA [id number] [place] [address] [place] CO2 [Moles/Vol] 24 mmol/L Normal 22-30 [facility] Comment on above: Order Comment: Speci men Type: BLOOD SPECIMENOrdering Facility: [facility] Address: [address] [place] [address] Performed By: #### 2 4323-8, , 2776-02 ####[facility] LABCLIA [id number] [place] [address] [place] Creatinine [Mass/Vol] 0.77 mg/dL Normal 0.73-1.22 [facility] Comment on above: Order Comment: Speci men Type: BLOOD SPECIMENOrdering Facility: [facility] Address: [address] [place] [address] Performed By: #### 2 4323-8, , 2776-02 ####[facility] LABCLIA [id number] [address] [place] ESTIMATED GLOMERULAR FILTRATION RATE 92 mL/min/1.73m??? Normal >=60 [facility] Comment on above: Order Comment: Speci men Type: BLOOD SPECIMENOrdering Facility: [facility] Address: [address] [place] [address] Result Comment: Mariaelena mated Glomerular Filtration Rate [...] actual GFR. Performed By: #### 2 4323-8, 43826-0, 2776-02 ####[facility] LABCLIA [id number] [place] [address] [place] Glucose [Mass/Vol] 124 mg/dL High 74-99 [facility] Comment on above: Order Comment: Speci men Type: BLOOD SPECIMENOrdering Facility: [facility] Address: [address] [place] [address] Result Comment: The [place] [employer] Association (ADA) provides guidance for cutoff [...] Standards of Medical Care in Diabetes 2016, [place] [employer]. Diabetes Care. 2016.39(Suppl 1). Performed By: #### 2 4323-8, 63870-8, 2776- ####[facility] LABIA [id number] [place] [address] [place] Potassium [Moles/Vol] 3.9 mmol/L Normal 3.7-5.1 [facility] Comment on above: Order Comment: Speci men Type: BLOOD SPECIMENOrdering Facility: [facility] Address: [address] [place] [address] Performed By: #### 2 4323-8, , 27708-18 ####[facility] LABIA [id number] [place] [address] [place] Protein [Mass/Vol] 6.2 g/dL Low 6.3-8.0 [facility] Comment on above: Order Comment: Speci men Type: BLOOD SPECIMENOrdering Facility: [facility] Address: [address] [place] [address] Performed By: #### 2 4323-8, , 2776-02 ####[facility] LABIA [id number] [place] [id number] [place] Sodium [Moles/Vol] 138 mmol/L Normal 136-144 [facility] Comment on above: Order Comment: Speci men Type: BLOOD SPECIMENOrdering Facility: [facility] Address: [address] [place] [address] Performed By: #### 2 4323-8, , 2776-02 ####[facility] LABIA [id number] [place] [address] [place] Urea nitrogen [Mass/Vol] 22 mg/dL Normal 9-24 [facility] Comment on above: Order Comment: Speci men Type: BLOOD SPECIMENOrdering Facility: [facility] Address: [address] [place] [address] Performed By: #### 2 4323-8, , 2776-02 ####[facility] LABIA [id number] [place] [id number] [place] Magnesium SerPl-mCncon 08-30 Magnesium [Mass/Vol] 2.2 mg/dL Normal 1.7-2.3 [facility] Comment on above: Order Comment: Speci men Type: BLOOD SPECIMENOrdering Facility: [facility] Address: [address] [place] [address] Performed By: #### 2 4323-8, , 2776-02 ####[facility] [id number] [place] [address] [place] PT panel Coag (PPP)on 2022 INR Coag (PPP) [Relative time] 1.1 {INR} Normal 0.9-1.3 [facility] Comment on above: Order Comment: Speci men Type: BLOOD SPECIMENOrdering Facility: [facility] Address: [address] [place], [place] [address] Result Comment: Mago min K Antagonist (VKA) Therapeutic Range: INR 2 to 3 (Target INR of 2.5) Note: For patients treated with VKA drugs, such as warfarin, the [place] [employer] 2012 Guideline recommends [...] 70: 252-289 Performed By: #### 3 4528-0, 41284-7 ####[facility] LABCLIA [id number] [place] [address] [place] PT Coag (PPP) [Time] 10.9 s Normal 9.7-13.0 [facility] Comment on above: Order Comment: Speci men Type: BLOOD SPECIMENOrdering Facility: [facility] Address: [address] [place] [address] Performed By: #### 3 4528-0, 79062-2 ####[facility] LABIA [id number] [place] [address] [place] Phosphate SerPl-mCncon 08-30 Phosphate [Mass/Vol] 3.2 mg/dL Normal 2.7-4.8 [facility] Comment on above: Order Comment: Speci men Type: BLOOD SPECIMENOrdering Facility: [facility] Address: [address] [place] [address] Performed By: #### 2 4323-8, 33950-3, 2777-1 ####[facility] LABCLIA [id number] [place] [id number] [place] THERAPY NTon 08-30-2022 THERAPY NT HNO ID: [id number] Author: Jenna Duggan, PT Service: Physical Therapy Author Type: Physical Therapist Type: Therapy (PT/OT/Speech/Resp) Filed: 08/30/2022 3:12 PM Note Text: Physical Therapy Treatment SERVICE DATE: 08/30/2022 SERVICE TIME: 1337 to 1400 ROOM: [place] [address] Recommended Discharge Disposition: Home Anticipated Discharge Needs: [...] DM, recent STEMI (08/20/2022), transferred from [facility] for gross hematuria. Currently with 18Fr 3-way catheter on CBI. 08/28/22: s/p cystoscopy, clot evacuation, cystolitholapaxy, TURP. Admitted to SICU postoperatively due to pressor requirements and risk of hyponatremia due to length of TURP. 22Fr [address] hernandez placed introp, on traction and CBI. Reason for Hospital Admission: Pt 77y/o male transferred from [facility] for gross hematuria secondary to recent [...] General Deviations/Observations: Diana decreased, Flexed trunk posture [facility]: 8: Walk 250 feet or more Learning/Educational [...] Diagnosis: Reduced mobility-other Interventions Provided: Therapeutic Activity (48738), Gait Training (76503) Therapeutic Activity (49307) Treatment Minutes: 8 $ Therapeutic Activity (28403) Billed Units: 1 unit Gait Training (03517) Treatment Minutes: 15 $ Gait Training (35131) Billed Units: 1 unit Training AND Education Provided in: Benefits of In-Hospital Mobility, Bed Mobility, Energy Conservation, Equipment, Exercise Program, Expected Functional Level, Gait Pattern, Reduction of Deviations, Patient Exercise/Therapy Program Support Needs, Positioning, Precautions/Restrictions, Role of Physical Therapy, Standing Balance, Treatment Protocol, Transfers The Followin (more content not included)... Normal [facility] TYPE + SCREENon 08-30-2022 ABO O Normal [facility] Comment on above: Order Comment: Speci men Type: BLOOD SPECIMENOrdering Facility: [facility] Address: [address] [place] [address] Performed By: #### T SCR ####CC [facility]IN BLOOD BANKCLIA [id number] [address] HISTORICAL AB SCR STATUS Negative Normal [facility] Comment on above: Order Comment: Speci men Type: BLOOD SPECIMENOrdering Facility: [facility] Address: [address] [place] [address] Performed By: #### T SCR ####CC MAIN BLOOD BANKCLIA [id number] [address] [place] Rh Nom (Bld) Positive Normal [facility] Comment on above: Order Comment: Speci men Type: BLOOD SPECIMENOrdering Facility: [facility] Address: [address] [place] [address] Performed By: #### T SCR ####CC MAIN BLOOD BANKCLIA [id number] [address] TYPE AND SCREEN EXPIRATION 09/02/2022 23:59 Normal [facility] Comment on above: Order Comment: Speci men Type: BLOOD SPECIMENOrdering Facility: [facility] Address: [address] [place] [address] Performed By: #### T SCR ####CC MAIN BLOOD BANKCLIA [id number] [address] [place] aPTT PPPon 08-30-2022 aPTT Coag (PPP) [Time] 26.5 s Normal 23.0-32.4 [facility] Comment on above: Order Comment: Speci men Type: BLOOD SPECIMENOrdering Facility: [facility] Address: [address] [place] [address] Performed By: #### 3 4528-0, 93849-7 ####[facility] LABIA [id number] [address] [place] CBC panel Auto (Bld)on 08-29 Erythrocyte distribution width (RBC) [Ratio] 12.5 % Normal 11.5-15.0 [facility] Comment on above: Order Comment: Speci men Type: BLOOD SPECIMENOrdering Facility: [facility] Address: [address] [place] [address] Performed By: #### 5 8410-2 ####[facility] LABIA [id number] [address] [place] Hematocrit (Bld) [Volume fraction] 30.7 % Low 39.0-51.0 [facility] Comment on above: Order Comment: Speci men Type: BLOOD SPECIMENOrdering Facility: [facility] Address: [address] [place] [address] Performed By: #### 5 8410-2 ####[facility] LABIA [id number] [address] [place] Hemoglobin (Bld) [Mass/Vol] 10.6 g/dL Low 13.0-17.0 [facility] Comment on above: Order Comment: Speci men Type: BLOOD SPECIMENOrdering Facility: [facility] Address: [address] [place] [address] Performed By: #### 5 8410-2 ####[facility] LABIA [id number] [address] [place] MCH (RBC) [Entitic mass] 32.0 pg Normal 26.0-34.0 [facility] Comment on above: Order Comment: Speci men Type: BLOOD SPECIMENOrdering Facility: [facility] Address: [address] [place] [address] Performed By: #### 5 8410-2 ####[facility] LABIA [id number] [address] MCHC (RBC) [Mass/Vol] 34.5 g/dL Normal 30.5-36.0 [facility] Comment on above: Order Comment: Speci men Type: BLOOD SPECIMENOrdering Facility: [facility] Address: [address] [place], [place] [address] Performed By: #### 5 8410-2 ####[facility] LABIA [id number] [address] [place] MCV (RBC) [Entitic vol] 92.7 fL Normal 80.0-100.0 [facility] Comment on above: Order Comment: Speci men Type: BLOOD SPECIMENOrdering Facility: [facility] Address: [address] [place], [place] [address] Performed By: #### 5 8410-2 ####[facility] [id number] [address] [place] Nucleated RBC (Bld) [#/Vol] 10*3/uL Normal <0.01 [facility] Comment on above: Order Comment: Speci men Type: BLOOD SPECIMENOrdering Facility: [facility] Address: [address] [place] [id number] Performed By: #### 5 8410-2 ####[facility] LABIA [id number] [address] [place] Platelet mean volume (Bld) [Entitic vol] 11.6 fL Normal 9.0-12.7 [facility] Comment on above: Order Comment: Speci men Type: BLOOD SPECIMENOrdering Facility: [facility] Address: [address] [place], [place] [address] Performed By: #### 5 8410-2 ####[facility] LABIA [id number] [place] [address] [place] Platelets (Bld) [#/Vol] 159 10*3/uL Normal 150-400 [facility] Comment on above: Order Comment: Speci men Type: BLOOD SPECIMENOrdering Facility: [facility] Address: [address] [place] [address] Performed By: #### 5 8410-2 ####[facility] LABCLIA [id number] [place] [address] [place] RBC (Bld) [#/Vol] 3.31 10*6/uL Low 4.20-6.00 [facility] Comment on above: Order Comment: Speci men Type: BLOOD SPECIMENOrdering Facility: [facility] Address: [address] [place] [address] Performed By: #### 5 8410-2 ####[facility] LABCLIA [id number] [place] [address] [place] WBC (Bld) [#/Vol] 13.57 10*3/uL High 3.70-11.00 [facility] Comment on above: Order Comment: Speci men Type: BLOOD SPECIMENOrdering Facility: [facility] Address: [address] [place], [place] [address] Performed By: #### 5 8410-2 ####[facility] LABCLIA [id number] [place] [address] [place] Erythrocyte distribution width (RBC) [Ratio] 12.5 % Normal 11.5-15.0 [facility] Comment on above: Order Comment: Speci men Type: BLOOD SPECIMENOrdering Facility: [facility] Address: [address] [place], [place] [address] Performed By: #### 5 8410-2 ####[facility] LABCLIA [id number] [place] [address] [place] Hematocrit (Bld) [Volume fraction] 25.7 % Low 39.0-51.0 [facility] Comment on above: Order Comment: Speci men Type: BLOOD SPECIMENOrdering Facility: [facility] Address: [address] [place] [address] Performed By: #### 5 8410-2 ####[facility] LABCLIA [id number] [place] [address] [place] Hemoglobin (Bld) [Mass/Vol] 9.1 g/dL Low 13.0-17.0 [facility] Comment on above: Order Comment: Speci men Type: BLOOD SPECIMENOrdering Facility: [facility] Address: [address] [place] [address] Performed By: #### 5 8410-2 ####[facility] LABIA [id number] [address] [place] MCH (RBC) [Entitic mass] 32.4 pg Normal 26.0-34.0 [facility] Comment on above: Order Comment: Speci men Type: BLOOD SPECIMENOrdering Facility: [facility] Address: [address] [place] [address] Performed By: #### 5 8410-2 ####[facility] LABIA [id number] [address] [place] MCHC (RBC) [Mass/Vol] 35.4 g/dL Normal 30.5-36.0 [facility] Comment on above: Order Comment: Speci men Type: BLOOD SPECIMENOrdering Facility: [facility] Address: [address] Performed By: #### 5 8410-2 ####[facility] LABIA [id number] [address] [place] MCV (RBC) [Entitic vol] 91.5 fL Normal 80.0-100.0 [facility] Comment on above: Order Comment: Speci men Type: BLOOD SPECIMENOrdering Facility: [facility] Address: [address] Performed By: #### 5 8410-2 ####[facility] LABIA [id number] [place] [address] [place] Nucleated RBC (Bld) [#/Vol] 10*3/uL Normal <0.01 [facility] Comment on above: Order Comment: Speci men Type: BLOOD SPECIMENOrdering Facility: [facility] Address: [address] [place] [address] Performed By: #### 5 8410-2 ####[facility] [id number] [place] [address] [place] [facility] [place] Platelet mean volume (Bld) [Entitic vol] 11.1 fL Normal 9.0-12.7 [facility] Comment on above: Order Comment: Speci men Type: BLOOD SPECIMENOrdering Facility: [facility] Address: [address] [place] [address] Performed By: #### 5 8410-2 ####[facility] [id number] [place] [address] [place] Platelets (Bld) [#/Vol] 138 10*3/uL Low 150-400 [facility] Comment on above: Order Comment: Speci men Type: BLOOD SPECIMENOrdering Facility: [facility] Address: [address] [place] [address] Result Comment: No c lot detected.Results checked and verified. Performed By: #### 5 8410-2 ####[facility] [id number] [place] [address] [place] RBC (Bld) [#/Vol] 2.81 10*6/uL Low 4.20-6.00 [facility] Comment on above: Order Comment: Speci men Type: BLOOD SPECIMENOrdering Facility: [facility] Address: [address] [place] [address] Performed By: #### 5 8410-2 ####[facility] LABIA [id number] [place] [address] [place] WBC (Bld) [#/Vol] 11.86 10*3/uL High 3.70-11.00 [facility] Comment on above: Order Comment: Speci men Type: BLOOD SPECIMENOrdering Facility: [facility] Address: [address] [place] [address] Performed By: #### 5 8410-2 ####[facility] LABIA [id number] [address] [place] 08-29-2022 CNPN Telephone (ANGEL) -- OLAF BRIONES ([id number]) 1945 M Date Time Provider Department 08/29/22 [...] Hematuria [R31.9] 08/27/2022 Coronary artery disease involving sycuan hinton*08/27/2022 Adverse reaction to antiplatelet agent [T45.7X5*08/27/2022 Myocardial infarction (HCC) [I21.9] 08/27/2022 Primary hypertension [I10] 08/27/2022 Type 2 diabetes mellitus without complication, *08/27/2022 Leukocytosis [D72.829] 08/27/2022 Malnutrition of mild degree (HCC) [E44.1] 08/29/2022 Encounter Status:Closed by DAVID ANDREWS on 08/29/22 Normal [facility] CONSULT PROGon 08-29-2022 CONSULT PROG HNO ID: [id number] Author: Rodriguez Miller APRN.CEMENT [employer]PER Service: Cardiovascular Medicine Author Type: Nurse Practitioner Type: Consult Progress Note Filed: 08/29/2022 11:18 AM Note Text: [facility] CONSULT PROGRESS NOTE (Template ID [id number]) CONSULTING SERVICE: Cardiology: Consult Team PRIMARY SERVICE: [...] 08/29/2022 0700 Gross per 24 hour Intake 21734.5 ml Output 26068 ml Net 5853.5 ml TELEMETRY: SR IMAGING: [...] echocardiographic exam for comparison. Stent card from [facility] from 08/20/2022 DATA: Laboratory: Recent Labs 08/29/2232208/29/2224108/28/228 [...] (2001) and TURP (2007) who presented to [facility] (more content not included)... Normal [facility] Comprehensive metabolic 2000 panelon 08-29-2022 Albumin [Mass/Vol] 4.2 g/dL Normal 3.9-4.9 [facility] Comment on above: Order Comment: Speci men Type: BLOOD SPECIMENOrdering Facility: [facility] Address: [address] [place] [address] Performed By: #### 2 4323-8 ####[facility] LABCLIA [id number] [place] [address] [place] ALP [Catalytic activity/Vol] 116 U/L High 38-113 [facility] Comment on above: Order Comment: Speci men Type: BLOOD SPECIMENOrdering Facility: [facility] Address: [address] [place] [place] [address] Performed By: #### 2 4323-8 ####[facility] LABCLIA [id number] [address] STATES OF [facility] ALT [Catalytic activity/Vol] 20 U/L Normal 10-54 [facility] Comment on above: Order Comment: Speci men Type: BLOOD SPECIMENOrdering Facility: [facility] Address: [address] Performed By: #### 2 4323-8 ####[facility] LABCLIA [id number] [place] [address] [place] Anion gap [Moles/Vol] 13 mmol/L Normal 9-18 [facility] Comment on above: Order Comment: Speci men Type: BLOOD SPECIMENOrdering Facility: [facility] Address: [address] [place] [address] Performed By: #### 2 4323-8 ####[facility] LABCLIA [id number] [place] [address] [place] AST [Catalytic activity/Vol] 19 U/L Normal 14-40 [facility] Comment on above: Order Comment: Speci men Type: BLOOD SPECIMENOrdering Facility: [facility] Address: [address] [place] [address] Performed By: #### 2 4323-8 ####[facility] LABCLIA [id number] [place] [address] [place] Bilirubin [Mass/Vol] 0.4 mg/dL Normal 0.2-1.3 [facility] Comment on above: Order Comment: Speci men Type: BLOOD SPECIMENOrdering Facility: [facility] Address: [address] [place], [place] [address] Performed By: #### 2 4323-8 ####[facility] LABCLIA [id number] [place] [address] [place] Calcium [Mass/Vol] 9.4 mg/dL Normal 8.5-10.2 [facility] Comment on above: Order Comment: Speci men Type: BLOOD SPECIMENOrdering Facility: [facility] Address: [address] [place], [place] [address] Performed By: #### 2 4323-8 ####[facility] LABCLIA [id number] [place] [address] [place] Chloride [Moles/Vol] 102 mmol/L Normal 97-105 [facility] Comment on above: Order Comment: Speci men Type: BLOOD SPECIMENOrdering Facility: [facility] Address: [address] [place], [place] [address] Performed By: #### 2 4323-8 ####[facility] LABCLIA [id number] [place] [address] [place] CO2 [Moles/Vol] 25 mmol/L Normal 22-30 [facility] Comment on above: Order Comment: Speci men Type: BLOOD SPECIMENOrdering Facility: [facility] Address: [address] [place] [address] Performed By: #### 2 4323-8 ####[facility] LABIA [id number] [address] STATES OF [facility] Creatinine [Mass/Vol] 0.86 mg/dL Normal 0.73-1.22 [facility] Comment on above: Order Comment: Speci men Type: BLOOD SPECIMENOrdering Facility: [facility] Address: [address] [place] [place] [address] Performed By: #### 2 4323-8 ####[facility] LABIA [id number] [address] OF [facility] ESTIMATED GLOMERULAR FILTRATION RATE 89 mL/min/1.73m??? Normal >=60 [facility] Comment on above: Order Comment: Speci men Type: BLOOD SPECIMENOrdering Facility: [facility] Address: [address] [place] [place] [address] Result Comment: Mariaelena mated Glomerular Filtration Rate [...] actual GFR. Performed By: #### 2 4323-8 ####[facility] LABIA [id number] [place] [address] [place] Glucose [Mass/Vol] 166 mg/dL High 74-99 [facility] Comment on above: Order Comment: Speci men Type: BLOOD SPECIMENOrdering Facility: [facility] Address: [address] [place] [address] Result Comment: The [place] Diabetes Association (ADA) provides guidance for cutoff [...] Standards of Medical Care in Diabetes 2016, [place] [employer]. Diabetes Care. 2016.39(Suppl 1). Performed By: #### 2 4323-8 ####[facility] LABCLIA [id number] [place] [address] [place] Potassium [Moles/Vol] 3.9 mmol/L Normal 3.7-5.1 [facility] Comment on above: Order Comment: Speci men Type: BLOOD SPECIMENOrdering Facility: [facility] Address: [address] [place] [address] Performed By: #### 2 4323-8 ####[facility] LABIA [id number] [place] [address] [place] Protein [Mass/Vol] 6.6 g/dL Normal 6.3-8.0 [facility] Comment on above: Order Comment: Speci men Type: BLOOD SPECIMENOrdering Facility: [facility] Address: [address] [place] [address] Performed By: #### 2 4323-8 ####[facility] LABIA [id number] [place] [address] [place] Sodium [Moles/Vol] 140 mmol/L Normal 136-144 [facility] Comment on above: Order Comment: Speci men Type: BLOOD SPECIMENOrdering Facility: [facility] Address: [address] [place] [address] Performed By: #### 2 4323-8 ####[facility] LABCLIA [id number] [place] [address] [place] Urea nitrogen [Mass/Vol] 21 mg/dL Normal 9-24 [facility] Comment on above: Order Comment: Speci men Type: BLOOD SPECIMENOrdering Facility: [facility] Address: [address] [place] [place] [address] Performed By: #### 2 4323-8 ####[facility] LABCLIA [id number] [place] [address] [place] Albumin [Mass/Vol] 3.6 g/dL Low 3.9-4.9 [facility] Comment on above: Order Comment: Speci men Type: BLOOD SPECIMENOrdering Facility: [facility] Address: [address] [place] [address] Performed By: #### 2 4323-8 ####[facility] LABCLIA [id number] [place] [address] [place] ALP [Catalytic activity/Vol] 96 U/L Normal 38-113 [facility] Comment on above: Order Comment: Speci men Type: BLOOD SPECIMENOrdering Facility: [facility] Address: [address] [place], [place] [address] Performed By: #### 2 4323-8 ####[facility] LABCLIA [id number] [place] [address] [place] ALT [Catalytic activity/Vol] 18 U/L Normal 10-54 [facility] Comment on above: Order Comment: Speci men Type: BLOOD SPECIMENOrdering Facility: [facility] Address: [address] [place], [place] [address] Performed By: #### 2 4323-8 ####[facility] LABCLIA [id number] [place] [address] [place] Anion gap [Moles/Vol] 10 mmol/L Normal 9-18 [facility] Comment on above: Order Comment: Speci men Type: BLOOD SPECIMENOrdering Facility: [facility] Address: [address] [place], [place] [address] Performed By: #### 2 4323-8 ####[facility] LABCLIA [id number] [place] [address] [place] AST [Catalytic activity/Vol] 16 U/L Normal 14-40 [facility] Comment on above: Order Comment: Speci men Type: BLOOD SPECIMENOrdering Facility: [facility] Address: [address] [place] [address] Performed By: #### 2 4323-8 ####[facility] LABCLIA [id number] [place] [address] [place] Bilirubin [Mass/Vol] 0.5 mg/dL Normal 0.2-1.3 [facility] Comment on above: Order Comment: Speci men Type: BLOOD SPECIMENOrdering Facility: [facility] Address: [address] [place] [address] Performed By: #### 2 4323-8 ####[facility] LABCLIA [id number] [place] [address] [place] Calcium [Mass/Vol] 8.7 mg/dL Normal 8.5-10.2 [facility] Comment on above: Order Comment: Speci men Type: BLOOD SPECIMENOrdering Facility: [facility] Address: [address] [place] [address] Performed By: #### 2 4323-8 ####[facility] LABCLIA [id number] [place] [address] [place] Chloride [Moles/Vol] 105 mmol/L Normal 97-105 [facility] Comment on above: Order Comment: Speci men Type: BLOOD SPECIMENOrdering Facility: [facility] Address: [address] [place], [place] [address] Performed By: #### 2 4323-8 ####[facility] LABCLIA [id number] [place] [address] [place] CO2 [Moles/Vol] 24 mmol/L Normal 22-30 [facility] Comment on above: Order Comment: Speci men Type: BLOOD SPECIMENOrdering Facility: [facility] Address: [address] [place] [address] Performed By: #### 2 4323-8 ####[facility] LABIA [id number] [address] STATES OF [facility] Creatinine [Mass/Vol] 0.78 mg/dL Normal 0.73-1.22 [facility] Comment on above: Order Comment: Speci men Type: BLOOD SPECIMENOrdering Facility: [facility] Address: [address] [place] [place] [address] Performed By: #### 2 4323-8 ####[facility] LABIA [id number] [address] STATES OF [place] ESTIMATED GLOMERULAR FILTRATION RATE 92 mL/min/1.73m??? Normal >=60 [facility] Comment on above: Order Comment: Speci men Type: BLOOD SPECIMENOrdering Facility: [facility] Address: [address] [place] [address] Result Comment: Mariaelena mated Glomerular Filtration Rate [...] actual GFR. Performed By: #### 2 4323-8 ####[facility] LABIA [id number] [place] [address] [place] Glucose [Mass/Vol] 217 mg/dL High 74-99 [facility] Comment on above: Order Comment: Speci men Type: BLOOD SPECIMENOrdering Facility: [facility] Address: [address] [place] [address] Result Comment: The [place] Diabetes Association (ADA) provides guidance for cutoff [...] Standards of Medical Care in Diabetes 2016, [place] [employer]. Diabetes Care. 2016.39(Suppl 1). Performed By: #### 2 4323-8 ####[facility] LABCLIA [id number] [place] [address] [place] Potassium [Moles/Vol] 3.9 mmol/L Normal 3.7-5.1 [facility] Comment on above: Order Comment: Speci men Type: BLOOD SPECIMENOrdering Facility: [facility] Address: [address] [place] [address] Performed By: #### 2 4323-8 ####[facility] LABIA [id number] [place] [address] [place] Protein [Mass/Vol] 5.6 g/dL Low 6.3-8.0 [facility] Comment on above: Order Comment: Speci men Type: BLOOD SPECIMENOrdering Facility: [facility] Address: [address] [place] [address] Performed By: #### 2 4323-8 ####[facility] LABIA [id number] [place] [address] [place] Sodium [Moles/Vol] 139 mmol/L Normal 136-144 [facility] Comment on above: Order Comment: Speci men Type: BLOOD SPECIMENOrdering Facility: [facility] Address: [address] [place] [address] Performed By: #### 2 4323-8 ####[facility] LABIA [id number] [place] [address] [place] Urea nitrogen [Mass/Vol] 14 mg/dL Normal 9-24 [facility] Comment on above: Order Comment: Speci men Type: BLOOD SPECIMENOrdering Facility: [facility] Address: [address] [place], [place] [address] Performed By: #### 2 4323-8 ####[facility] LABCLIA [id number] [place] [address] [place] Albumin [Mass/Vol] 3.6 g/dL Low 3.9-4.9 [facility] Comment on above: Order Comment: Speci men Type: BLOOD SPECIMENOrdering Facility: [facility] Address: [address] [place], [place] [address] Performed By: #### 2 777-1, , ####[facility] LABCLIA [id number] [place] [address] [place] ALP [Catalytic activity/Vol] 98 U/L Normal 38-113 [facility] Comment on above: Order Comment: Speci men Type: BLOOD SPECIMENOrdering Facility: [facility] Address: [address] [place], [place] [address] Performed By: #### 2 777-1, , ####[facility] LABCLIA [id number] [place] [address] [place] ALT [Catalytic activity/Vol] 19 U/L Normal 10-54 [facility] Comment on above: Order Comment: Speci men Type: BLOOD SPECIMENOrdering Facility: [facility] Address: [address] [place] [address] Performed By: #### 2 777-1, , ####[facility] LABCLIA [id number] [place] [address] [place] Anion gap [Moles/Vol] 12 mmol/L Normal 9-18 [facility] Comment on above: Order Comment: Speci men Type: BLOOD SPECIMENOrdering Facility: [facility] Address: [address] [place] [address] Performed By: #### 2 777-1, 77094-1, ####[facility] LABCLIA [id number] [place] [address] [place] AST [Catalytic activity/Vol] 18 U/L Normal 14-40 [facility] Comment on above: Order Comment: Speci men Type: BLOOD SPECIMENOrdering Facility: [facility] Address: [address] [place], [place] [address] Performed By: #### 2 777-1, 50330-0, ####[facility] LABCLIA [id number] [place] [address] [place] Bilirubin [Mass/Vol] 0.7 mg/dL Normal 0.2-1.3 [facility] Comment on above: Order Comment: Speci men Type: BLOOD SPECIMENOrdering Facility: [facility] Address: [address] [place], [place] [address] Performed By: #### 2 777-1, 44883-1, ####[facility] LABCLIA [id number] [place] [address] [place] Calcium [Mass/Vol] 8.3 mg/dL Low 8.5-10.2 [facility] Comment on above: Order Comment: Speci men Type: BLOOD SPECIMENOrdering Facility: [facility] Address: [address] [place] [address] Performed By: #### 2 777-1, 44077-1, ####[facility] LABIA [id number] [place] [address] [place] Chloride [Moles/Vol] 102 mmol/L Normal 97-105 [facility] Comment on above: Order Comment: Speci men Type: BLOOD SPECIMENOrdering Facility: [facility] Address: [address] [place] [address] Performed By: #### 2 777-1, 61848-0, ####[facility] LABIA [id number] [place] [address] [place] CO2 [Moles/Vol] 22 mmol/L Normal 22-30 [facility] Comment on above: Order Comment: Speci men Type: BLOOD SPECIMENOrdering Facility: [facility] Address: [address] [place] [address] Performed By: #### 2 777-1, 96228-8, ####[facility] LABIA [id number] [place] [address] [place] Creatinine [Mass/Vol] 0.69 mg/dL Low 0.73-1.22 [facility] Comment on above: Order Comment: Speci men Type: BLOOD SPECIMENOrdering Facility: [facility] Address: [address] [place] [address] Performed By: #### 2 777-1, , ####[facility] LABIA [id number] [place] [address] [place] ESTIMATED GLOMERULAR FILTRATION RATE 95 mL/min/1.73m??? Normal >=60 [facility] Comment on above: Order Comment: Speci men Type: BLOOD SPECIMENOrdering Facility: [facility] Address: [address] [place] [address] Result Comment: Mariaelena mated Glomerular Filtration Rate [...] actual GFR. Performed By: #### 2 777-1, 55075-3, 89398-3 ####[facility] LABIA [id number] [place] [address] [place] Glucose [Mass/Vol] 202 mg/dL High 74-99 [facility] Comment on above: Order Comment: Speci men Type: BLOOD SPECIMENOrdering Facility: [facility] Address: [address] [place] [address] Result Comment: The [place] Diabetes Association (ADA) provides guidance for cutoff [...] Standards of Medical Care in Diabetes 2016, [place] [employer]. Diabetes Care. 2016.39(Suppl 1). Performed By: #### 2 777-1, , ####[facility] LABIA [id number] [place] [address] [place] Potassium [Moles/Vol] 4.1 mmol/L Normal 3.7-5.1 [facility] Comment on above: Order Comment: Speci men Type: BLOOD SPECIMENOrdering Facility: [facility] Address: [address] [place], [place] [address] Performed By: #### 2 777-1, , ####[facility] LABIA [id number] [place] [id number] [place] Protein [Mass/Vol] 5.5 g/dL Low 6.3-8.0 [facility] Comment on above: Order Comment: Speci men Type: BLOOD SPECIMENOrdering Facility: [facility] Address: [address] [place], [place] [address] Performed By: #### 2 777-1, , ####[facility] LABCLIA [id number] [place] [address] [place] Sodium [Moles/Vol] 136 mmol/L Normal 136-144 [facility] Comment on above: Order Comment: Speci men Type: BLOOD SPECIMENOrdering Facility: [facility] Address: [address] [place] [address] Performed By: #### 2 777-1, , ####[facility] LABCLIA [id number] [place] [address] [place] Urea nitrogen [Mass/Vol] 14 mg/dL Normal 9-24 [facility] Comment on above: Order Comment: Speci men Type: BLOOD SPECIMENOrdering Facility: [facility] Address: [address] [place] [address] Performed By: #### 2 777-1, , ####[facility] LABCLIA [id number] [place] [address] [place] Albumin [Mass/Vol] 3.0 g/dL Low 3.9-4.9 [facility] Comment on above: Order Comment: Speci men Type: BLOOD SPECIMENOrdering Facility: [facility] Address: [address] [place] [address] Result Comment: Resu lt rechecked. Performed By: #### 1 9123-9, 27708-18, ####[facility] LABCLIA [id number] [address] [address] [place] ALP [Catalytic activity/Vol] 88 U/L Normal 38-113 [facility] Comment on above: Order Comment: Speci men Type: BLOOD SPECIMENOrdering Facility: [facility] Address: [address] [place], [place] [address] Performed By: #### 1 9123-9, 277-, ####[facility] LABCLIA [id number] [place] [address] [place] ALT [Catalytic activity/Vol] 15 U/L Normal 10-54 [facility] Comment on above: Order Comment: Speci men Type: BLOOD SPECIMENOrdering Facility: [facility] Address: [address] [place] [address] Performed By: #### 1 9123-9, 2777-1, 82201-1 ####[facility] LABCLIA [id number] [place] [address] [place] Anion gap [Moles/Vol] 14 mmol/L Normal 9-18 [facility] Comment on above: Order Comment: Speci men Type: BLOOD SPECIMENOrdering Facility: [facility] Address: [address] [place] [address] Performed By: #### 1 9123-9, 2777-, 37654-7 ####[facility] LABCLIA [id number] [address] [place] AST [Catalytic activity/Vol] 16 U/L Normal 14-40 [facility] Comment on above: Order Comment: Speci men Type: BLOOD SPECIMENOrdering Facility: [facility] Address: [address] [place] [address] Performed By: #### 1 9123-9, 2777-1, 67320-1 ####[facility] LABCLIA [id number] [address] [place] Bilirubin [Mass/Vol] 0.6 mg/dL Normal 0.2-1.3 [facility] Comment on above: Order Comment: Speci men Type: BLOOD SPECIMENOrdering Facility: [facility] Address: [address] [place] [address] Performed By: #### 1 9123-9, 2777-1, 78892-3 ####[facility] LABCLIA [id number] [id number] [address] [place] Calcium [Mass/Vol] 8.4 mg/dL Low 8.5-10.2 [facility] Comment on above: Order Comment: Speci men Type: BLOOD SPECIMENOrdering Facility: [facility] Address: [address] [place] [address] Performed By: #### 1 9123-9, 2777-1, 91784-8 ####[facility] LABCLIA [id number] [place] [address] [place] Chloride [Moles/Vol] 103 mmol/L Normal 97-105 [facility] Comment on above: Order Comment: Speci men Type: BLOOD SPECIMENOrdering Facility: [facility] Address: [address] [place] [address] Performed By: #### 1 9123-9, 27708-18, 31835-5 ####[facility] LABCLIA [id number] [place] [address] [place] CO2 [Moles/Vol] 20 mmol/L Low 22-30 [facility] Comment on above: Order Comment: Speci men Type: BLOOD SPECIMENOrdering Facility: [facility] Address: [address] [place] [address] Performed By: #### 1 9123-9, 27708-18, 00736-9 ####[facility] LABCLIA [id number] [place] [address] [place] Creatinine [Mass/Vol] 0.64 mg/dL Low 0.73-1.22 [facility] Comment on above: Order Comment: Speci men Type: BLOOD SPECIMENOrdering Facility: [facility] [facility] Address: [address] [place], [place] [address] Performed By: #### 1 9123-9, 277-, 09547-0 ####[facility] LABCLIA [id number] [place] [place] [address] [place] ESTIMATED GLOMERULAR FILTRATION RATE 98 mL/min/1.73m??? Normal >=60 [facility] Comment on above: Order Comment: Specherbie tay Type: BLOOD SPECIMENOrdering Facility: [facility] Address: [place] [address] Result Comment: Mariaelena mated Glomerular Filtration Rate [...] GFR. Performed By: #### 1 9123-9, 2777-1, 34678-8 ####[facility] LABIA [id number] [place] [address] [place] Glucose [Mass/Vol] 186 mg/dL High 74-99 [facility] Comment on above: Order Comment: Portia tay Type: BLOOD SPECIMENOrdering Facility: [facility] Address: [address] [address] Result Comment: The [place] Diabetes Association (ADA) provides guidance for cutoff [...] Standards of Medical Care in Diabetes 2016, [place] Diabetes Association. Diabetes Care. 2016.39(Suppl 1). Performed By: #### 1 9123-9, 2777-1, 77407-8 ####[facility] LABIA [id number] [address] [address] [place] Potassium [Moles/Vol] 4.0 mmol/L Normal 3.7-5.1 [facility] Comment on above: Order Comment: Speci men Type: BLOOD SPECIMENOrdering Facility: [facility] Address: [address] [place] [address] Performed By: #### 1 9123-9, 27708-18, ####[facility] LABCLIA [id number] [place] [address] [place] Protein [Mass/Vol] 5.1 g/dL Low 6.3-8.0 [facility] Comment on above: Order Comment: Speci men Type: BLOOD SPECIMENOrdering Facility: [facility] Address: [address] [place] [address] Performed By: #### 1 9123-9, 27708-18, ####[facility] LABIA [id number] [place] [address] [place] Sodium [Moles/Vol] 137 mmol/L Normal 136-144 [facility] Comment on above: Order Comment: Speci men Type: BLOOD SPECIMENOrdering Facility: [facility] Address: [address] [place] [address] Performed By: #### 1 9123-9, 2776-02, ####[facility] LABIA [id number] [place] [address] [place] Urea nitrogen [Mass/Vol] 12 mg/dL Normal 9-24 [facility] Comment on above: Order Comment: Speci men Type: BLOOD SPECIMENOrdering Facility: [facility] Address: [address] Performed By: #### 1 9123-9, 2776-02, ####[facility] LABIA [id number] [place] [address] [place] ECG COMPLETEon 08-29-2022 ECG COMPLETE Ventricular Rate : 7 0 BPM Atrial Rate : 70 BPM P-R Interval : 186 ms QRS Duration : 102 ms Q-T Interval : 454 ms QTC Calculation(Bazett) : 490 ms Calculated P [place] : 44 degrees Calculated R [place] : -26 degrees Calculated T [place] : -27 degrees SINUS RHYTHM WITH PREMATURE ATRIAL COMPLEXES NONSPECIFIC ST ABNORMALITY ABNORMAL ECG Confirmed by ERICK STEWARD MD (65) on 08/31/2022 7:45:00 AM NAME : OLAF BRIONES PID : [id number] : 1945 Gender : Male Race : Unknown ORD : [id number] Procedure Date : Aug 29 2022 00:07:53 Edit Date : Aug 31 2022 07:45:03 Diagnosis: SINUS RHYTHM WITH PREMATURE ATRIAL COMPLEXES NONSPECIFIC ST ABNORMALITY ABNORMAL ECG Confirmed by ERICK STEWARD MD (65) on 08/31/2022 7:45:00 AM Test Reason : Post-OP Location : 154 : [facility]54- Overread By : ERICK STEWARD MD Edited By : ERICK STEWARD MD Referred By : , Acquired by : NAHOMI RINALDI [facility] Magnesium [Mass/Vol] 2.1 mg/dL Normal 1.7-2.3 [facility] Comment on above: Order Comment: Speci men Type: BLOOD SPECIMENOrdering Facility: [facility] Address: [address] [place] [address] Performed By: #### 2 777-1, 48951-1, 64437-8 ####[facility] [id number] [address] STATES OF [facility] Magnesium [Mass/Vol] 1.8 mg/dL Normal 1.7-2.3 [facility] Comment on above: Order Comment: Speci men Type: BLOOD SPECIMENOrdering Facility: [facility] Address: [address] [place] [address] Performed By: #### 1 9123-9, 2777-1, 13340-4 ####[facility] LABIA [id number] [place] [address] [place] PT panel Coag (PPP)on 2022 INR Coag (PPP) [Relative time] 1.0 {INR} Normal 0.9-1.3 [facility] Comment on above: Order Comment: Portia tay Type: BLOOD SPECIMENOrdering Facility: [facility] Address: [address] [place] [address] Result Comment: Mago min K Antagonist (VKA) Therapeutic Range: INR 2 to 3 (Target INR of 2.5) Note: For patients treated with VKA drugs, such as warfarin, the [place] [employer] 2012 Guideline recommends [...] 70: 252-289 Performed By: #### 3 4528-0, 34040-7 ####[facility] [id number] [place] [address] [place] PT Coag (PPP) [Time] 10.7 s Normal 9.7-13.0 [facility] Comment on above: Order Comment: Portia tay Type: BLOOD SPECIMENOrdering Facility: [facility] Address: [address] [place] [id number] Performed By: #### 3 4528-0, 99327-4 ####[facility] [id number] [place] [address] [place] INR Coag (PPP) [Relative time] 1.1 {INR} Normal 0.9-1.3 [facility] Comment on above: Order Comment: Portia tay Type: BLOOD SPECIMENOrdering Facility: [facility] Address: [place] [address] Result Comment: Mago min K Antagonist (VKA) Therapeutic Range: INR 2 to 3 (Target INR of 2.5) Note: For patients treated with VKA drugs, such as warfarin, the [place] [employer] 2012 Guideline recommends [...] 70: 252-289 Performed By: #### 3 4528-0, 54679-3 ####[facility] LABCLIA [id number] [place] [address] [place] PT Coag (PPP) [Time] 11.2 s Normal 9.7-13.0 [facility] Comment on above: Order Comment: Speci men Type: BLOOD SPECIMENOrdering Facility: [facility] Address: [address] [place] [phone] Performed By: #### 3 4528-0, 41703-4 ####[facility] LABCLIA [id number] [place] [address] [place] Phosphate SerPl-mCncon 08-29 Phosphate [Mass/Vol] 4.9 mg/dL High 2.7-4.8 [facility] Comment on above: Order Comment: Speci men Type: BLOOD SPECIMENOrdering Facility: [facility] Address: [address] [place] [phone] Performed By: #### 2 777-1, 98964-3, 61621-2 ####[facility] LABCLIA [id number] [facility] [id number] [place] [address] [place] Phosphate [Mass/Vol] 4.2 mg/dL Normal 2.7-4.8 [facility] Comment on above: Order Comment: Speci men Type: BLOOD SPECIMENOrdering Facility: [facility] Address: [address] [place] [address] Performed By: #### 1 9123-9, 2777-1, 16617-1 ####[facility] LABCLIA [id number] [place] [address] [place] THERAPY NTon 08-29-2022 THERAPY NT HNO ID: [id number] Author: Jenna Duggan, PT Service: Physical Therapy Author Type: Physical Therapist Type: Therapy (PT/OT/Speech/Resp) Filed: 08/29/2022 2:51 PM Note Text: Physical Therapy Evaluation SERVICE DATE: 08/29/2022 SERVICE TIME: 1403 to 1438 ROOM: [place] [address] Recommended Discharge Disposition: Home Anticipated Discharge Needs: [...] DM, recent STEMI (08/20/2022), transferred from [facility] for gross hematuria. Currently with 18Fr 3-way catheter on CBI. 08/28/22: s/p cystoscopy, clot evacuation, cystolitholapaxy, TURP. Admitted to SICU postoperatively due to pressor requirements and risk of hyponatremia due to length of TURP. 22Fr [address] hernandez placed introp, on traction and CBI. Reason for Hospital Admission: Pt 77y/o male transferred from [facility] for gross hematuria secondary to recent [...] Reduced mobility-other Interventions Provided: Evaluation, Therapeutic Activity (86930), Gait Training (69507) $ Evaluation-Moderate (46800) Billed Units: 1 unit Therapeutic Activity (95531) Treatment Minutes: 7 $ Therapeutic Activity (54507) Billed Units: 0 units Gait Training (58976) Treatment Minutes: 13 $ Gait Training (73453) Billed Units: 1 unit Training AND Education Provided in: Benefits of In-Hospital Mobility, Bed Mobility, Energy Conservation, Equipment, Exer (more content not included)... Normal [facility] THERAPY NT HNO ID: [id number] Author: BLAYNE Miles/L Service: Occupational Therapy Author Type: Occupational Therapist Type: Therapy (PT/OT/Speech/Resp) Filed: 08/29/2022 11:06 AM Note Text: Occupational Therapy Evaluation SERVICE DATE: 08/29/2022 SERVICE TIME: 50 to 0921 ROOM: [place] [address] Recommended Discharge Disposition: Home Anticipated Discharge Needs: [...] DM, recent STEMI (08/20/2022), transferred from [facility] for gross hematuria. Currently with 18Fr 3-way catheter on CBI. 08/28/22: s/p cystoscopy, clot evacuation, cystolitholapaxy, TURP. Admitted to SICU postoperatively due to pressor requirements and risk of hyponatremia due to length of TURP. 22Fr [address] hernandez placed introp, on traction and CBI. 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 Normal [facility] aPTT PPPon 08-29-2022 aPTT Coag (PPP) [Time] 21.0 s Low 23.0-32.4 [facility] Comment on above: Order Comment: Speci men Type: BLOOD SPECIMENOrdering Facility: [facility] Address: [address] [place] [address] Performed By: #### 3 4528-0, 94338-2 ####[facility] [id number] [address] aPTT Coag (PPP) [Time] 26.1 s Normal 23.0-32.4 [facility] Comment on above: Order Comment: Speci men Type: BLOOD SPECIMENOrdering Facility: [facility] Address: [address] [place] [address] Performed By: #### 3 4528-0, 08652-8 ####[facility] [id number] [address] [place] ANES POSTPROC EVALon 023 ANES POSTPROC EVAL HNO ID: [id number] Author: Michelle Day MD Service: ? Author Type: Anesthesiologist Type: Anesthesia Postprocedure Evaluation Filed: 08/28/2022 8:38 PM Note Text: POST ANESTHESIA EVALUATION NOTE : 1945 Procedure Summary Date: 08/28/22 Room / Location: [place] [address] [facility] Anesthesia Start: 1752 Anesthesia [...] August 28, 2022 TIME: 8:37 PM CSN: [id number] Normal [facility] ANES PRE-OPon 08-28-2022 ANES PRE-OP HNO ID: [id number] Author: Weston Avila MD Service: ? Author Type: Anesthesiologist Type: Anesthesia Preprocedure Evaluation Filed: 08/28/2022 6:10 PM Note Text: ANESTHESIOLOGY DAY OF SURGERY NOTE : 1945 Procedure Information Anesthesia Start Date/Time: 08/28/221752 Procedure: CYSTOURETHROSCOPY FULGURATION BLADDER (Bladder) Location: [place] [address] [facility] Surgeons: David Andrews MD Estimated body mass index is 25.23 kg/m? as calculated from the following: Height as of this encounter: 173 cm (5' 8.11 ). Weight as of this encounter: 75.5 kg (166 lb 7.2 oz). Most recent hematocrit and potassium results: Hematocrit 32.6 08/28/2022 Potassium 4.0 08/28/2022 Relevant Problems CARDIO (+) Coronary artery disease involving sycuan coronary artery of sycuan heart without angina pectoris (+) Myocardial infarction [...] as nee (more content not included)... 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 L (more content not included)... Normal [facility] BRIEF OP NOTon 08-28-2022 BRIEF OP NOT HNO ID: [id number] Author: Gt Mcgowan MD Service: Urology Author Type: Resident Type: Brief Op Note Filed: 08/28/2022 7:50 PM Note Text: BRIEF OP NOTE LOG ID: [id number] Surgery/Procedure Date: 08/28/2022 Incision/Procedure Start Time: 6:17 PM Incision Close/Procedure End Time: Surgeon(s)/Proceduralist(s ) and Cloth Dyeing Range Tender(s): Surgeon(s) and Role: * David Andrews MD [...] #2 Tissue PROSTATE TISSUE (CHIPS) SURGICAL PATHOLOGY Daivd Andrews MD 08/28/2022 6:55 PM Complications: None Pre-Op/Pre-Procedure Diagnosis: gross hematuria, clot retention Post-Op/Post-Procedure Diagnosis: same SIGNATURE: Gt Mcgowan MD PATIENT NAME: Olaf Briones DATE: August 28, 2022 TIME: 7:48 PM PAGER/CONTACT #: p [phone] Post-op Plan: To SICU Normal [facility] Basic metabolic 2000 panelon 08-28-2022 Anion gap [Moles/Vol] 9 mmol/L Normal 9-18 [facility] Comment on above: Order Comment: Speci men Type: BLOOD SPECIMENOrdering Facility: [facility] Address: [address] [place] [address] Performed By: #### 2 4321-2 ####[facility] LABCLIA [id number] [place] [address] [place] Calcium [Mass/Vol] 8.8 mg/dL Normal 8.5-10.2 [facility] Comment on above: Order Comment: Speci men Type: BLOOD SPECIMENOrdering Facility: [facility] Address: [address] [place] [address] Performed By: #### 2 4321-2 ####[facility] LABCLIA [id number] [place] [address] [place] Chloride [Moles/Vol] 108 mmol/L High 97-105 [facility] Comment on above: Order Comment: Speci men Type: BLOOD SPECIMENOrdering Facility: [facility] Address: [address] [place] [address] Performed By: #### 2 4321-2 ####[facility] LABCLIA [id number] [place] [address] [place] CO2 [Moles/Vol] 24 mmol/L Normal 22-30 [facility] Comment on above: Order Comment: Speci men Type: BLOOD SPECIMENOrdering Facility: [facility] Address: [address] [place] [id number] Performed By: #### 2 4321-2 ####[facility] LABIA [id number] [address] STATES OF [facility] Creatinine [Mass/Vol] 0.79 mg/dL Normal 0.73-1.22 [facility] Comment on above: Order Comment: Speci men Type: BLOOD SPECIMENOrdering Facility: [facility] Address: [address] [place] [address] Performed By: #### 2 4321-2 ####[facility] LABIA [id number] [address] OF [facility] ESTIMATED GLOMERULAR FILTRATION RATE 91 mL/min/1.73m??? Normal >=60 [facility] Comment on above: Order Comment: Speci men Type: BLOOD SPECIMENOrdering Facility: [facility] Address: [address] [place] [address] Result Comment: Mariaelena mated Glomerular Filtration Rate [...] actual GFR. Performed By: #### 2 4321-2 ####[facility] LABIA [id number] [place] [address] [place] Glucose [Mass/Vol] 137 mg/dL High 74-99 [facility] Comment on above: Order Comment: Speci men Type: BLOOD SPECIMENOrdering Facility: [facility] Address: [address] [place] [address] Result Comment: The [place] Diabetes Association (ADA) provides guidance for cutoff [...] Standards of Medical Care in Diabetes 2016, [place] [employer]. Diabetes Care. 2016.39(Suppl 1). Performed By: #### 2 4321-2 ####[facility] LABCLIA [id number] [place] [address] [place] Potassium [Moles/Vol] 4.0 mmol/L Normal 3.7-5.1 [facility] Comment on above: Order Comment: Speci men Type: BLOOD SPECIMENOrdering Facility: [facility] Address: [address] [place] [address] Performed By: #### 2 4321-2 ####[facility] LABIA [id number] [place] [address] [place] Sodium [Moles/Vol] 141 mmol/L Normal 136-144 [facility] Comment on above: Order Comment: Speci men Type: BLOOD SPECIMENOrdering Facility: [facility] Address: [address] [place] [address] Performed By: #### 2 4321-2 ####[facility] LABIA [id number] [place] [address] [place] Urea nitrogen [Mass/Vol] 18 mg/dL Normal 9-24 [facility] Comment on above: Order Comment: Speci men Type: BLOOD SPECIMENOrdering Facility: [facility] Address: [address] [place] [address] Performed By: #### 2 4321-2 ####[facility] LABIA [id number] [place] [address] [place] CALCULI ANALYSISon 3 Calculus analysis [Interp] Normal [facility] Comment on above: Order Comment: Speci men Type: CALCULUS SPECIMENOrdering Facility: [facility] Address: [address] [place] [address] Result Comment: This test was developed and its performance characteristics determined by [facility]'s [facility] Pathology and Laboratory Medicine [place] ([facility]). It has not been cleared or approved by the FDA. -[facility] is regulated under CLIA as qualified to perform high-complexity testing. This test is used for clinical purposes. It should not be regarded as investigational or for research. Performed By: #### C SA ####[facility] LABIA [id number] [address] OF [place] CALCULUS COLOR BROWN Normal [facility] Comment on above: Order Comment: Speci men Type: CALCULUS SPECIMENOrdering Facility: [facility] Address: [address] [place] [address] Performed By: #### C SA ####[facility] LABIA [id number] [address] OF [facility] CALCULUS COMPOSITION 1 50% Calcium Oxala te Monohydrate Normal [facility] Comment on above: Order Comment: Speci men Type: CALCULUS SPECIMENOrdering Facility: [facility] Address: [address] [place] [address] Performed By: #### C SA ####[facility] LABIA [id number] [address] OF [place] CALCULUS COMPOSITION 2 40% Calcium Oxala te Dihydrate Normal [facility] Comment on above: Order Comment: Speci men Type: CALCULUS SPECIMENOrdering Facility: [facility] Address: [address] [place] [address] Performed By: #### C SA ####[facility] LABIA [id number] [address] [place] CALCULUS COMPOSITION 3 10% Minor Components Normal [facility] Comment on above: Order Comment: Speci men Type: CALCULUS SPECIMENOrdering Facility: [facility] Address: [address] [place] [address] Performed By: #### C SA ####[facility] LABCLIA [id number] [address] STATES OF [place] CALCULUS SIZE AND WT 0.4 X 0.3 X 0.1 CM 0.0163 GRAMS Normal [facility] Comment on above: Order Comment: Speci men Type: CALCULUS SPECIMENOrdering Facility: [facility] Address: [address] [place] [address] Performed By: #### C SA ####[facility] LABIA [id number] [address] STATES OF [place] CALCULUS TYPE Calculus, CALCULI/CALCULUS Normal [facility] Comment on above: Order Comment: Speci men Type: CALCULUS SPECIMENOrdering Facility: [facility] Address: [address] [place] [address] Performed By: #### C SA ####[facility] LABIA [id number] [place] [address] [place] CBC panel Auto (Bld)on 08-28 Erythrocyte distribution width (RBC) [Ratio] 12.7 % Normal 11.5-15.0 [facility] Comment on above: Order Comment: Speci men Type: BLOOD SPECIMENOrdering Facility: [facility] Address: [address] Performed By: #### 5 8410-2 ####[facility] LABIA [id number] [place] [address] [place] Hematocrit (Bld) [Volume fraction] 35.7 % Low 39.0-51.0 [facility] Comment on above: Order Comment: Speci men Type: BLOOD SPECIMENOrdering Facility: [facility] Address: [address] [place] [address] Performed By: #### 5 8410-2 ####[facility] LABCLIA [id number] [address] STATES OF [facility] Hemoglobin (Bld) [Mass/Vol] 12.1 g/dL Low 13.0-17.0 [facility] Comment on above: Order Comment: Speci men Type: BLOOD SPECIMENOrdering Facility: [facility] Address: [address] [place] [address] Performed By: #### 5 8410-2 ####[facility] LABIA [id number] [address] MCH (RBC) [Entitic mass] 31.8 pg Normal 26.0-34.0 [facility] Comment on above: Order Comment: Speci men Type: BLOOD SPECIMENOrdering Facility: [facility] Address: [address] [place] [address] Performed By: #### 5 8410-2 ####[facility] LABIA [id number] [address] MCHC (RBC) [Mass/Vol] 33.9 g/dL Normal 30.5-36.0 [facility] Comment on above: Order Comment: Speci men Type: BLOOD SPECIMENOrdering Facility: [facility] Address: [address] [place] [address] Performed By: #### 5 8410-2 ####[facility] LABIA [id number] [address] STATES OF [facility] MCV (RBC) [Entitic vol] 93.7 fL Normal 80.0-100.0 C [facility] Comment on above: Order Comment: Speci men Type: BLOOD SPECIMENOrdering Facility: [facility] Address: [address] [place], [place] [address] Performed By: #### 5 8410-2 ####[facility] LABIA [id number] [address] STATES OF [place] Nucleated RBC (Bld) [#/Vol] 10*3/uL Normal <0.01 [facility] Comment on above: Order Comment: Speci men Type: BLOOD SPECIMENOrdering Facility: [facility] Address: [address] [place], [place] [address] Performed By: #### 5 8410-2 ####[facility] LABCLIA [id number] [place] [address] [place] Platelet mean volume (Bld) [Entitic vol] 11.3 fL Normal 9.0-12.7 [facility] Comment on above: Order Comment: Speci men Type: BLOOD SPECIMENOrdering Facility: [facility] Address: [address] [place], [place] [address] Performed By: #### 5 8410-2 ####[facility] LABCLIA [id number] [place] [address] [place] Platelets (Bld) [#/Vol] 179 10*3/uL Normal 150-400 [facility] Comment on above: Order Comment: Speci men Type: BLOOD SPECIMENOrdering Facility: [facility] Address: [address] [place], [place] [address] Performed By: #### 5 8410-2 ####[facility] LABCLIA [id number] [place] [address] [place] RBC (Bld) [#/Vol] 3.81 10*6/uL Low 4.20-6.00 [facility] Comment on above: Order Comment: Speci men Type: BLOOD SPECIMENOrdering Facility: [facility] Address: [address] [place], [place] [address] Performed By: #### 5 8410-2 ####[facility] LABCLIA [id number] [place] [address] [place] WBC (Bld) [#/Vol] 16.02 10*3/uL High 3.70-11.00 [facility] Comment on above: Order Comment: Speci men Type: BLOOD SPECIMENOrdering Facility: [facility] Address: [address] Performed By: #### 5 8410-2 ####[facility] LABCLIA [id number] [address] [place] Erythrocyte distribution width (RBC) [Ratio] 12.8 % Normal 11.5-15.0 [facility] Comment on above: Order Comment: Speci men Type: BLOOD SPECIMENOrdering Facility: [facility] Address: [address] Performed By: #### 5 8410-2 ####[facility] LABCLIA [id number] [place] [address] [place] Hematocrit (Bld) [Volume fraction] 32.6 % Low 39.0-51.0 [facility] Comment on above: Order Comment: Speci men Type: BLOOD SPECIMENOrdering Facility: [facility] Address: [address] [place], [place] [address] Performed By: #### 5 8410-2 ####[facility] LABCLIA [id number] [place] [address] [place] Hemoglobin (Bld) [Mass/Vol] 11.1 g/dL Low 13.0-17.0 [facility] Comment on above: Order Comment: Speci men Type: BLOOD SPECIMENOrdering Facility: [facility] Address: [address] Performed By: #### 5 8410-2 ####[facility] LABCLIA [id number] [place] [address] [place] MCH (RBC) [Entitic mass] 31.6 pg Normal 26.0-34.0 [facility] Comment on above: Order Comment: Speci men Type: BLOOD SPECIMENOrdering Facility: [facility] Address: [address] [place], [place] [address] Performed By: #### 5 8410-2 ####[facility] LABCLIA [id number] [place] [address] [place] MCHC (RBC) [Mass/Vol] 34.0 g/dL Normal 30.5-36.0 [facility] Comment on above: Order Comment: Speci men Type: BLOOD SPECIMENOrdering Facility: [facility] Address: [address] [place] [address] Performed By: #### 5 8410-2 ####[facility] LABIA [id number] [place] [address] [place] MCV (RBC) [Entitic vol] 92.9 fL Normal 80.0-100.0 [facility] Comment on above: Order Comment: Speci men Type: BLOOD SPECIMENOrdering Facility: [facility] Address: [address] [place] [address] Performed By: #### 5 8410-2 ####[facility] LABIA [id number] [place] [address] [place] Nucleated RBC (Bld) [#/Vol] 10*3/uL Normal <0.01 [facility] Comment on above: Order Comment: Speci men Type: BLOOD SPECIMENOrdering Facility: [facility] Address: [address] [place], [place] [address] Performed By: #### 5 8410-2 ####[facility] LABIA [id number] [place] [address] [place] Platelet mean volume (Bld) [Entitic vol] 11.2 fL Normal 9.0-12.7 [facility] Comment on above: Order Comment: Speci men Type: BLOOD SPECIMENOrdering Facility: [facility] Address: [address] [place], [place] [address] Performed By: #### 5 8410-2 ####[facility] LABIA [id number] [place] [address] [place] Platelets (Bld) [#/Vol] 172 10*3/uL Normal 150-400 [facility] Comment on above: Order Comment: Speci men Type: BLOOD SPECIMENOrdering Facility: [facility] Address: [address] [place] [address] Performed By: #### 5 8410-2 ####[facility] LABCLIA [id number] [place] [address] [place] [facility] RBC (Bld) [#/Vol] 3.51 10*6/uL Low 4.20-6.00 [facility] Comment on above: Order Comment: Speci men Type: BLOOD SPECIMENOrdering Facility: [facility] Address: [address] [place] [address] Performed By: #### 5 8410-2 ####[facility] LABCLIA [id number] [place] [address] [place] WBC (Bld) [#/Vol] 11.53 10*3/uL High 3.70-11.00 [facility] Comment on above: Order Comment: Speci men Type: BLOOD SPECIMENOrdering Facility: [facility] Address: [address] [place] [address] Performed By: #### 5 8410-2 ####[facility] LABCLIA [id number] [address] STATES OF [facility] CONSULT PROGon 08-28-2022 CONSULT PROG HNO ID: [id number] Author: Uzma Bates MD Service: Cardiovascular Medicine [...] 08/28/2022 1045 Gross per 24 hour Intake 46473.5 ml Output 23781 ml Net -70808.5 ml TELEMETRY: DATA: Laboratory: Recent Labs 08/28/22 [...] and TURP (2006) who presented to [facility] ED 08/26/22 for development of gross hematuria with lower pelvic pain x2 days. He was found to have elevated WBC with + UA, and started on IV atbx. He was transferred to [facility] 08/27 for further management. He was [...] RCRI score is 1 for hx of FL, making him a class II risk. This equates to a 6.0% 30-day risk of , FL, or cardiac arrest. Pt denies any cardiac complaints. Per Dr. Bates, no absolute contraindication to proceeding with urologic p (more content not included)... Normal [facility] Comprehensive metabolic 2000 panelon 08-28-2022 Albumin [Mass/Vol] 4.1 g/dL Normal 3.9-4.9 [facility] Comment on above: Order Comment: Speci men Type: BLOOD SPECIMENOrdering Facility: [facility] Address: [address] [place] [address] Performed By: #### 1 9123-9, 29667-0, 2777- ####[facility] LABIA [id number] [place] [address] [place] ALP [Catalytic activity/Vol] 119 U/L High 38-113 [facility] Comment on above: Order Comment: Speci men Type: BLOOD SPECIMENOrdering Facility: [facility] Address: [address] [place] [place] [address] Performed By: #### 1 9123-9, 49231-5, 2777- ####[facility] LABIA [id number] [address] [place] ALT [Catalytic activity/Vol] 23 U/L Normal 10-54 [facility] Comment on above: Order Comment: Speci men Type: BLOOD SPECIMENOrdering Facility: [facility] Address: [address] [place] [address] Performed By: #### 1 9123-9, 53446-6, 2777- ####[facility] LABCLIA [id number] [place] [address] [place] Anion gap [Moles/Vol] 10 mmol/L Normal 9-18 [facility] Comment on above: Order Comment: Speci men Type: BLOOD SPECIMENOrdering Facility: [facility] Address: [address] [place] [address] Performed By: #### 1 9123-9, 45675-5, 277- ####[facility] LABIA [id number] [place] [address] [place] AST [Catalytic activity/Vol] 21 U/L Normal 14-40 [facility] Comment on above: Order Comment: Speci men Type: BLOOD SPECIMENOrdering Facility: [facility] Address: [address] [place] [address] Performed By: #### 1 9123-9, 72195-6, 27708-18 ####[facility] LABIA [id number] [place] [address] [place] Bilirubin [Mass/Vol] 1.1 mg/dL Normal 0.2-1.3 [facility] Comment on above: Order Comment: Speci men Type: BLOOD SPECIMENOrdering Facility: [facility] Address: [address] [place] [address] Performed By: #### 1 9123-9, 92812-8, 2777- ####[facility] LABIA [id number] [place] [address] [place] Calcium [Mass/Vol] 9.1 mg/dL Normal 8.5-10.2 [facility] Comment on above: Order Comment: Speci men Type: BLOOD SPECIMENOrdering Facility: [facility] Address: [address] [place] [address] Performed By: #### 1 9123-9, 06803-6, 2777- ####[facility] LABIA [id number] [place] [address] [place] Chloride [Moles/Vol] 105 mmol/L Normal 97-105 [facility] Comment on above: Order Comment: Speci men Type: BLOOD SPECIMENOrdering Facility: [facility] Address: [address] Performed By: #### 1 9123-9, 19105-5, 2777- ####[facility] LABIA [id number] [place] [address] [place] CO2 [Moles/Vol] 24 mmol/L Normal 22-30 [facility] Comment on above: Order Comment: Speci men Type: BLOOD SPECIMENOrdering Facility: [facility] Address: [address] [place], [place] [address] Performed By: #### 1 9123-9, 62821-6, 2777- ####[facility] LABIA [id number] [place] [address] [place] Creatinine [Mass/Vol] 0.76 mg/dL Normal 0.73-1.22 [facility] Comment on above: Order Comment: Speci men Type: BLOOD SPECIMENOrdering Facility: [facility] Address: [address] [place], [place] [address] Performed By: #### 1 9123-9, 60596-0, 2777- ####[facility] [id number] [place] [address] [place] ESTIMATED GLOMERULAR FILTRATION RATE 93 mL/min/1.73m??? Normal >=60 [facility] Comment on above: Order Comment: Speci men Type: BLOOD SPECIMENOrdering Facility: [facility] Address: [address] [place] [address] Result Comment: Mariaelena mated Glomerular Filtration Rate [...] actual GFR. Performed By: #### 1 9123-9, 57804-5, 2776- ####[facility] LABCLIA [id number] [place] [address] [place] Glucose [Mass/Vol] 147 mg/dL High 74-99 [facility] Comment on above: Order Comment: Portia tay Type: BLOOD SPECIMENOrdering Facility: [facility] Address: [address] [place] [address] Result Comment: The [place] Diabetes Association (ADA) provides guidance for cutoff [...] Standards of Medical Care in Diabetes 2016, [place] [employer] Association. Diabetes Care. 2016.39(Suppl 1). Performed By: #### 1 9123-9, , 2776-02 ####[facility] LABCLIA [id number] [place] [address] [place] Potassium [Moles/Vol] 4.2 mmol/L Normal 3.7-5.1 [facility] Comment on above: Order Comment: Portia tay Type: BLOOD SPECIMENOrdering Facility: [facility] Address: [address] [place] [address] Performed By: #### 1 9123-9, 39739-9, 2776-02 ####[facility] LABCLIA [id number] [place] [address] [place] Protein [Mass/Vol] 6.6 g/dL Normal 6.3-8.0 [facility] Comment on above: Order Comment: Speci men Type: BLOOD SPECIMENOrdering Facility: [facility] Address: [address] [place] [address] Performed By: #### 1 9123-9, 12909-4, 2777-1 ####[facility] LABIA [id number] [place] [address] [place] Sodium [Moles/Vol] 139 mmol/L Normal 136-144 [facility] Comment on above: Order Comment: Speci men Type: BLOOD SPECIMENOrdering Facility: [facility] Address: [address] [place] [address] Performed By: #### 1 9123-9, 64473-5, 2777-1 ####[facility] LABIA [id number] [place] [address] [place] Urea nitrogen [Mass/Vol] 14 mg/dL Normal 9-24 [facility] Comment on above: Order Comment: Speci men Type: BLOOD SPECIMENOrdering Facility: [facility] Address: [address] [place] [address] Performed By: #### 1 9123-9, 01056-0, 2777-1 ####[facility] LABIA [id number] [place] [address] [place] ECHOon 08-28-2022 Echocardiography Echocardiography Rep ort: Transthoracic Echo [facility] Bedside Date of service: 08/28/2022 9:45:03 AM EXTENSION AGENT Ordering physician: DAVID ANDREWS Indication: Evaluation of [...] * * Final * * * [facility] : [id number] Normal [facility] HISTORY PHYSICALon HISTORY PHYSICAL HNO ID: [id number] Author: Earnest Portillo MD Service: Critical Care Author Type: Physician Type: HANDP Filed: 08/28/2022 10:48 PM Note Text: SERVICE DATE: 08/28/2022 SERVICE TIME: 9:49 PM SICU HANDP NOTE HPI: Olaf Briones is a 77 year old male with PMHx of recent STEMI on 08/20/22 (s/p JUHI),HTN, HLD, DM, nephrolithiasis, transferred from [facility] for gross hematuria. 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 Normal [facility] Magnesium SerPl-mCncon 08-28 Magnesium [Mass/Vol] 2.1 mg/dL Normal 1.7-2.3 [facility] Comment on above: Order Comment: Speci men Type: BLOOD SPECIMENOrdering Facility: [facility] Address: [address] [place] [address] Performed By: #### 1 9123-9, 48613-0, 2777-1 ####[facility] LABCLIA [id number] [facility] [address] OPERATIVE NOon 08-28-2022 OPERATIVE NO HNO ID: [id number] Author: David Andrews MD Service: Urology Author Type: Physician Type: Operative Report Filed: 08/28/2022 8:20 PM Note Text: OPERATIVE/PROCEDURE REPORT LOG ID: [id number] Surgery/Procedure Date: 08/28/2022 Incision/Procedure Start Time: 6:17 PM Incision Close/Procedure End Time: 7:50 PM Surgeon(s)/Proceduralist(s ) and Cloth Dyeing Range Tender(s): Surgeon(s) and Role: * David Andrews MD [...] cup biopsy forceps as a stone crusher wet ground mica to allow for the stone to be [...] on behalf of David Andrews MD [facility] STAFF PHYSICIAN NOTE OF PE (more content not included)... Normal [facility] Phosphate SerPl-ncon 08-28 Phosphate [Mass/Vol] 2.9 mg/dL Normal 2.7-4.8 [facility] Comment on above: Order Comment: Speci men Type: BLOOD SPECIMENOrdering Facility: [facility] Address: [address] [place] [address] Performed By: #### 1 9123-9, 97558-6, 2777-1 ####[facility] LABCLIA [id number] [address] OF [facility] SURGICAL PATHOLOGYon 023 CASE REPORT Normal [facility] Comment on above: Order Comment: Speci men Type: TISSUE SPECIMENOrdering Facility: [facility] Address: [address] [place] [address] Result Comment: Surg ical Pathology Report Case: [id number] Authorizing Provider: David Andrews MD Collected: 08/28/2022 06:54 PM Ordering Location: Admitting Received: 08/29/2022 07:58 AM Pathologist: Gal Poon MD Specimens: A) - PROSTATE TISSUE (CHIPS) B) - PROSTATE TISSUE (CHIPS), #2 Performed By: #### S ####[facility] LABCLIA [id number] [address] OF [facility] CLINICAL HISTORY Normal [facility] Comment on above: Order Comment: Speci men Type: TISSUE SPECIMENOrdering Facility: [facility] Address: [address] [place] [address] Result Comment: Pre- op diagnosis: Hematuria [R31.9] Performed By: #### S ####[facility] LABCLIA [id number] [address] FINAL DIAGNOSIS Normal [facility] Comment on above: Order Comment: Speci men Type: TISSUE SPECIMENOrdering Facility: [facility] Address: [address] [place] [address] Result Comment: Frank Teixeira rostate, transurethral resection: - Benign prostatic hyperplasia. A. 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 Performed By: #### S ####[facility] LABCLIA [id number] [address] FINAL PERFORMING LAB Normal [facility] Comment on above: Order Comment: Speci men Type: TISSUE SPECIMENOrdering Facility: [facility] Address: [address] [place] [address] Result Comment: Diag nostic interpretation performed at [facility], [address] [address] CLIA# [id number] Taker Off Braker Machine: Jacob Urias M.D. Performed By: #### S ####[facility] LABIA [id number] [place] [address] [place] GROSS DESCRIPTION Normal [facility] Comment on above: Order Comment: Speci men Type: TISSUE SPECIMENOrdering Facility: [facility] Address: [address] [place] [address] Result Comment: A. P ROSTATE TISSUE (CHIPS) [...] in cassette B1. Gross examination performed at [facility], [address] 08/29/2022 2:10 PM Performed By: #### S ####[facility] [id number] [place] [address] [place] VENOUS BLOOD GASES WITH IONI ZED MAGNESIUMon 08-28-2022 BASE DEFICIT, VENOUS -1 mmol/L Normal -2-0 [facility] Comment on above: Order Comment: Speci men Type: VENOUS BLOOD SPECIMENOrdering Facility: [facility] Address: [address] [address] Performed By: #### V ALLMG ####[facility] [id number] [place] [address] [place] Calcium.ionized (Bld) [Mass/Vol] 1.19 mmol/L Normal 1.08-1.30 [facility] Comment on above: Order Comment: Speci men Type: VENOUS BLOOD SPECIMENOrdering Facility: [facility] Address: [address] [place] [address] Performed By: #### V ALLMG ####[facility] LABCLIA [id number] [place] [address] [place] Calcium.ionized adjusted to pH 7.4 (BldA) [Moles/Vol] 1.18 mmol/L Normal 1.08-1.30 [facility] Comment on above: Order Comment: Speci men Type: VENOUS BLOOD SPECIMENOrdering Facility: [facility] Address: [address] [place] [address] Performed By: #### V ALLMG ####[facility] LABCLIA [id number] [place] [address] [place] Carboxyhemoglobin (BldV) [Mass fraction] 1.9 % Normal 0.0-2.0 [facility] Comment on above: Order Comment: Speci men Type: VENOUS BLOOD SPECIMENOrdering Facility: [facility] Address: [address] [place], [place] [address] Result Comment: Carb oxyhemoglobin Reference Range for Smokers: 2.0-8.0% Performed By: #### V ALLMG ####[facility] LABCLIA [id number] [place] [address] [place] CO2 (BldV) [Partial pressure] 40 mm[Hg] Low 42-55 [facility] Comment on above: Order Comment: Speci men Type: VENOUS BLOOD SPECIMENOrdering Facility: [facility] Address: [address] Performed By: #### V ALLMG ####[facility] LABCLIA [id number] [place] [address] [place] CO2 [Moles/Vol] 25 mmol/L Normal 25-29 [facility] Comment on above: Order Comment: Speci men Type: VENOUS BLOOD SPECIMENOrdering Facility: [facility] Address: [address] [place], [place] [address] Performed By: #### V ALLMG ####[facility] LABCLIA [id number] [address] [place] CO2 adjusted to patient's actual temperature (BldV) [Partial pressure] 40 mmHg Low 42-55 [facility] Comment on above: Order Comment: Speci men Type: VENOUS BLOOD SPECIMENOrdering Facility: [facility] Address: [address] [place] [address] Performed By: #### V ALLMG ####[facility] LABCLIA [id number] [place] [address] [place] Glucose [Mass/Vol] 120 mg/dL High 60-105 [facility] Comment on above: Order Comment: Speci men Type: VENOUS BLOOD SPECIMENOrdering Facility: [facility] Address: [address] [place] [address] Performed By: #### V ALLMG ####[facility] LABCLIA [id number] [place] [address] [place] HCO3 (Bld) [Moles/Vol] 24 mmol/L Normal 24-28 [facility] Comment on above: Order Comment: Speci men Type: VENOUS BLOOD SPECIMENOrdering Facility: [facility] Address: [address] [place] [address] Performed By: #### V ALLMG ####[facility] LABCLIA [id number] [place] [address] [place] Hematocrit (Bld) [Volume fraction] 37.2 % Low 39.0-51.0 [facility] Comment on above: Order Comment: Speci men Type: VENOUS BLOOD SPECIMENOrdering Facility: [facility] Address: [address] [place], [place] [address] Performed By: #### V ALLMG ####[facility] LABCLIA [id number] [place] [address] [place] Hemoglobin (Bld) [Mass/Vol] 12.1 g/dL Low 13.0-17.0 [facility] Comment on above: Order Comment: Speci men Type: VENOUS BLOOD SPECIMENOrdering Facility: [facility] Address: [address] Performed By: #### V ALLMG ####[facility] LABCLIA [id number] [place] [address] [place] Lactate [Moles/Vol] 1.4 mmol/L Normal 0.5-2.2 [facility] Comment on above: Order Comment: Speci men Type: VENOUS BLOOD SPECIMENOrdering Facility: [facility] Address: [address] Performed By: #### V ALLMG ####[facility] LABIA [id number] [place] [address] [place] Magnesium [Moles/Vol] 0.58 mmol/L Normal 0.45-0.60 [facility] Comment on above: Order Comment: Speci men Type: VENOUS BLOOD SPECIMENOrdering Facility: [facility] Address: [address] Performed By: #### V ALLMG ####[facility] LABIA [id number] [place] [address] [place] Methemoglobin (Bld) [Mass fraction] 1.7 % High 0.0-1.5 [facility] Comment on above: Order Comment: Speci men Type: VENOUS BLOOD SPECIMENOrdering Facility: [facility] Address: [address] Performed By: #### V ALLMG ####[facility] LABIA [id number] [place] [address] [place] Oxygen (BldV) [Partial pressure] 96 mm[Hg] High 35-45 [facility] Comment on above: Order Comment: Speci men Type: VENOUS BLOOD SPECIMENOrdering Facility: [facility] Address: [address] Performed By: #### V ALLMG ####[facility] LABCLIA [id number] [place] [address] [place] Oxygen adjusted to patient's actual temperature (BldV) [Partial pressure] 96 mmHg High 35-45 [facility] Comment on above: Order Comment: Speci men Type: VENOUS BLOOD SPECIMENOrdering Facility: [facility] Address: [address] [place] [address] Performed By: #### V ALLMG ####[facility] LABCLIA [id number] [place] [address] [place] Oxygen saturation in Venous blood 97 % High 60-85 [facility] Comment on above: Order Comment: Speci men Type: VENOUS BLOOD SPECIMENOrdering Facility: [facility] Address: [address] [place] [address] Performed By: #### V ALLMG ####[facility] LABCLIA [id number] [place] [address] [place] Oxyhemoglobin (BldV) [Mass fraction] 94 % High 60-85 [facility] Comment on above: Order Comment: Speci men Type: VENOUS BLOOD SPECIMENOrdering Facility: [facility] Address: [address] [place] [address] Performed By: #### V ALLMG ####[facility] LABCLIA [id number] [place] [address] [place] pH (BldV) 7.39 [pH] Normal 7.32-7.42 [facility] Comment on above: Order Comment: Speci men Type: VENOUS BLOOD SPECIMENOrdering Facility: [facility] Address: [address] [place], [place] [address] Performed By: #### V ALLMG ####[facility] LABCLIA [id number] [place] [address] [place] pH adjusted to patient's actual temperature (BldV) 7.39 Normal 7.32-7.42 [facility] Comment on above: Order Comment: Speci men Type: VENOUS BLOOD SPECIMENOrdering Facility: [facility] Address: [address] [place] [address] Performed By: #### V ALLMG ####[facility] LABCLIA [id number] [address] [place] Potassium [Moles/Vol] 3.8 mmol/L Normal 3.5-5.0 [facility] Comment on above: Order Comment: Speci men Type: VENOUS BLOOD SPECIMENOrdering Facility: [facility] Address: [address] [place] [address] Performed By: #### V ALLMG ####[facility] LABCLIA [id number] [place] [address] [place] Sodium [Moles/Vol] 139 mmol/L Normal 136-144 [facility] Comment on above: Order Comment: Speci men Type: VENOUS BLOOD SPECIMENOrdering Facility: [facility] Address: [address] [place] [address] Performed By: #### V ALLMG ####[facility] LABCLIA [id number] [place] [address] [place] XR CHEST 1V [...] tortuous. Other: Generalized osteopenia. IMPRESSION: See result. Cane Weigher: PSCB Transcribe Date/Time: Aug 28 2022 10:04P Dictated by : AMERICO ADHIKARI MD This examination was interpreted and the report reviewed and electronically signed by: AMERICO ADHIKARI MD on Aug 28 2022 10:06PM EST [id number] Normal [facility] Bacteria Bld Culton 08-28-19 23 Bacteria identified Cx Nom (Bld) CULTURE, BLOOD: No growth 5 days Normal [facility] Comment on above: Performed By: #### 6 00-7 ####[facility] LABCLIA [id number] [place] [address] [place] Bacteria identified Cx Nom (Bld) CULTURE, BLOOD: No growth 5 days Normal [facility] Comment on above: Performed By: #### 6 00-7 ####[facility] LABCLIA [id number] [place] [address] [place] Bacteria Ur Culton 3 Bacteria identified Cx Nom (U) CULTURE, URINE: No growth (<1,000 CFU/ml) Normal [facility] Comment on above: Performed By: #### 6 30-4 ####[facility] LABCLIA [id number] [place] [address] [place] Basic metabolic 2000 panelon 08-27-2022 Anion gap [Moles/Vol] 13 mmol/L Normal 9-18 [facility] Comment on above: Order Comment: Speci men Type: BLOOD SPECIMENOrdering Facility: [facility] Address: [address] [place], [place] [address] Performed By: #### 2 4321-2, 56503-0, 2777-1 ####[facility] LABCLIA [id number] [place] [address] [place] Calcium [Mass/Vol] 9.3 mg/dL Normal 8.5-10.2 [facility] Comment on above: Order Comment: Speci men Type: BLOOD SPECIMENOrdering Facility: [facility] Address: [address] [place], [place] [address] Performed By: #### 2 4321-2, , 2776-02 ####[facility] LABCLIA [id number] [place] [address] [place] Chloride [Moles/Vol] 105 mmol/L Normal 97-105 [facility] Comment on above: Order Comment: Speci men Type: BLOOD SPECIMENOrdering Facility: [facility] Address: [address] [place] [address] Performed By: #### 2 4321-2, , 2776-02 ####[facility] LABCLIA [id number] [place] [address] [place] CO2 [Moles/Vol] 22 mmol/L Normal 22-30 [facility] Comment on above: Order Comment: Speci men Type: BLOOD SPECIMENOrdering Facility: [facility] Address: [address] [place] [address] Performed By: #### 2 4321-2, , 2776-02 ####[facility] LABCLIA [id number] [place] [address] [place] Creatinine [Mass/Vol] 0.79 mg/dL Normal 0.73-1.22 [facility] Comment on above: Order Comment: Speci men Type: BLOOD SPECIMENOrdering Facility: [facility] Address: [address] [place], [place] [address] Performed By: #### 2 4321-2, , 2776-02 ####[facility] LABCLIA [id number] [place] [address] [place] ESTIMATED GLOMERULAR FILTRATION RATE 91 mL/min/1.73m??? Normal >=60 [facility] Comment on above: Order Comment: Speci men Type: BLOOD SPECIMENOrdering Facility: [facility] Address: [address] [place] [address] Result Comment: Mariaelena mated Glomerular Filtration Rate [...] Performed By: #### 2 4321-2, , 2776-02 ####[facility] LABCLIA [id number] [address] [address] [place] Glucose [Mass/Vol] 197 mg/dL High 74-99 [facility] Comment on above: Order Comment: Specherbie men Type: BLOOD SPECIMENOrdering Facility: [facility] Address: [address] [place] [address] Result Comment: The [place] Diabetes Association (ADA) provides guidance for cutoff [...] Standards of Medical Care in Diabetes 2016, [place] [employer]. Diabetes Care. 2016.39(Suppl 1). Performed By: #### 2 4321-2, , 2776-02 ####[facility] LABCLIA [id number] [address] [address] [place] Potassium [Moles/Vol] 4.3 mmol/L Normal 3.7-5.1 [facility] Comment on above: Order Comment: Speci men Type: BLOOD SPECIMENOrdering Facility: [facility] Address: [address] [place] [address] Performed By: #### 2 4321-2, 00382-3, 2776-02 ####[facility] LABCLIA [id number] [address] [address] [place] Sodium [Moles/Vol] 140 mmol/L Normal 136-144 [facility] Comment on above: Order Comment: Speci men Type: BLOOD SPECIMENOrdering Facility: [facility] Address: [address] [place] [address] Performed By: #### 2 4321-2, , 2776-02 ####[facility] LABCLIA [id number] [place] [address] [place] Urea nitrogen [Mass/Vol] 17 mg/dL Normal 9-24 [facility] Comment on above: Order Comment: Speci men Type: BLOOD SPECIMENOrdering Facility: [facility] Address: [address] [place] [address] Performed By: #### 2 4321-2, , 2776-02 ####[facility] LABCLIA [id number] [place] [address] [place] CASE MGT INIT ASSESon 2022 CASE MGT INIT ASSES HNO ID: [id number] Author: Yane George RN Service: ? Author [...] Current Advance Directive: Health Care Power of Journeyman Carpenter (Patient reports he has AD. request copy [...] General wellness, Be able to go home Frankewing of Choice Explained: Frankewing of Choice Given: No Reason Not Given: [...] HLD, DM, nephrolithiasis who was transferred from [facility] w/ gross hematuria CM met patient in room. Patient lives with spouse at home. Patient reports independence at home with adl's/iadl's prior to admission. No oxygen, or cpaps at home. Had recent [place] in past. Cardiology on consult. No current [...] 27, 2022 TIME: 5:05 PM CONTACT #: [phone] Normal [facility] CBC W Auto Differential pane l (Bld)on 08-27-2022 Basophils (Bld) [#/Vol] 0.03 10*3/uL Normal <0.11 [facility] Comment on above: Order Comment: Speci men Type: BLOOD SPECIMENOrdering Facility: [facility] Address: [address] Performed By: #### 5 7021-8 ####[facility] LABCLIA [id number] [address] [place] [facility] Basophils/100 WBC (Bld) 0.2 % Normal C [facility] Comment on above: Order Comment: Speci men Type: BLOOD SPECIMENOrdering Facility: [facility] Address: [address] Performed By: #### 5 7021-8 ####[facility] LABCLIA [id number] [address] OF [facility] Differential cell count method Nom (Bld) Auto Normal [facility] Comment on above: Order Comment: Speci men Type: BLOOD SPECIMENOrdering Facility: [facility] Address: [address] [place] [address] Performed By: #### 5 7021-8 ####[facility] LABCLIA [id number] [place] [address] [place] Eosinophils (Bld) [#/Vol] 10*3/uL Normal <0.46 [facility] Comment on above: Order Comment: Speci men Type: BLOOD SPECIMENOrdering Facility: [facility] Address: [address] Performed By: #### 5 7021-8 ####[facility] LABCLIA [id number] [address] STATES OF [facility] Eosinophils/100 WBC (Bld) 0.1 % Normal [facility] Comment on above: Order Comment: Speci men Type: BLOOD SPECIMENOrdering Facility: [facility] Address: [address] [place], [place] [address] Performed By: #### 5 7021-8 ####[facility] LABCLIA [id number] [address] [place] Erythrocyte distribution width (RBC) [Ratio] 12.5 % Normal 11.5-15.0 [facility] Comment on above: Order Comment: Speci men Type: BLOOD SPECIMENOrdering Facility: [facility] Address: [address] [place] [address] Performed By: #### 5 7021-8 ####[facility] LABCLIA [id number] [place] [address] [place] Hematocrit (Bld) [Volume fraction] 38.5 % Low 39.0-51.0 [facility] Comment on above: Order Comment: Speci men Type: BLOOD SPECIMENOrdering Facility: [facility] Address: [address] [place] [address] Performed By: #### 5 7021-8 ####[facility] LABCLIA [id number] [place] [address] [place] Hemoglobin (Bld) [Mass/Vol] 13.4 g/dL Normal 13.0-17.0 [facility] Comment on above: Order Comment: Speci men Type: BLOOD SPECIMENOrdering Facility: [facility] Address: [address] [place], [place] [address] Performed By: #### 5 7021-8 ####[facility] LABIA [id number] [place] [address] [place] Immature granulocytes (Bld) [#/Vol] 0.10 10*3/uL High <0.10 [facility] Comment on above: Order Comment: Speci men Type: BLOOD SPECIMENOrdering Facility: [facility] Address: [address] [place], [place] [address] Performed By: #### 5 7021-8 ####[facility] LABCLIA [id number] [place] [address] [place] Immature granulocytes/100 WBC (Bld) 0.6 % Normal [facility] Comment on above: Order Comment: Speci men Type: BLOOD SPECIMENOrdering Facility: [facility] Address: [address] Performed By: #### 5 7021-8 ####[facility] LABCLIA [id number] [place] [address] [place] Lymphocytes (Bld) [#/Vol] 1.16 10*3/uL Normal 1.00-4.00 [facility] Comment on above: Order Comment: Speci men Type: BLOOD SPECIMENOrdering Facility: [facility] Address: [address] [place] [place] [address] Performed By: #### 5 7021-8 ####[facility] LABCLIA [id number] [address] [place] Lymphocytes/100 WBC (Bld) 7.1 % Normal [facility] Comment on above: Order Comment: Speci men Type: BLOOD SPECIMENOrdering Facility: [facility] Address: [address] [place], [place] [address] Performed By: #### 5 7021-8 ####[facility] LABCLIA [id number] [place] [address] [place] MCH (RBC) [Entitic mass] 31.5 pg Normal 26.0-34.0 [facility] Comment on above: Order Comment: Speci men Type: BLOOD SPECIMENOrdering Facility: [facility] Address: [address] [place], [place] [address] Performed By: #### 5 7021-8 ####[facility] LABCLIA [id number] [place] [address] [place] MCHC (RBC) [Mass/Vol] 34.8 g/dL Normal 30.5-36.0 [facility] Comment on above: Order Comment: Speci men Type: BLOOD SPECIMENOrdering Facility: [facility] Address: [address] [place], [place] [address] Performed By: #### 5 7021-8 ####[facility] LABCLIA [id number] [place] [address] [place] MCV (RBC) [Entitic vol] 90.6 fL Normal 80.0-100.0 C [facility] Comment on above: Order Comment: Speci men Type: BLOOD SPECIMENOrdering Facility: [facility] Address: [address] [place] [address] Performed By: #### 5 7021-8 ####[facility] LABIA [id number] [place] [address] [place] Monocytes (Bld) [#/Vol] 1.00 10*3/uL High <0.87 [facility] Comment on above: Order Comment: Speci men Type: BLOOD SPECIMENOrdering Facility: [facility] Address: [address] [place] [address] Performed By: #### 5 7021-8 ####[facility] LABIA [id number] [place] [address] [place] Monocytes/100 WBC (Bld) 6.2 % Normal C [facility] Comment on above: Order Comment: Speci men Type: BLOOD SPECIMENOrdering Facility: [facility] Address: [address] [place] [address] Performed By: #### 5 7021-8 ####[facility] LABIA [id number] [place] [address] [place] Neutrophils (Bld) [#/Vol] 13.93 10*3/uL High 1.45-7.50 [facility] Comment on above: Order Comment: Speci men Type: BLOOD SPECIMENOrdering Facility: [facility] Address: [address] [place], [place] [address] Performed By: #### 5 7021-8 ####[facility] LABCLIA [id number] [place] [address] [place] Neutrophils/100 WBC (Bld) 85.8 % Normal [facility] Comment on above: Order Comment: Speci men Type: BLOOD SPECIMENOrdering Facility: [facility] Address: [address] [place] [address] Performed By: #### 5 7021-8 ####[facility] LABIA [id number] [place] [address] [place] Nucleated RBC (Bld) [#/Vol] 10*3/uL Normal <0.01 [facility] Comment on above: Order Comment: Speci men Type: BLOOD SPECIMENOrdering Facility: [facility] Address: [address] Performed By: #### 5 7021-8 ####[facility] LABIA [id number] [place] [address] [place] Nucleated RBC/100 WBC (Bld) [Ratio] 0.0 /100 WBC Normal [facility] Comment on above: Order Comment: Speci men Type: BLOOD SPECIMENOrdering Facility: [facility] Address: [address] Performed By: #### 5 7021-8 ####[facility] LABIA [id number] [place] [address] [place] Platelet mean volume (Bld) [Entitic vol] 11.4 fL Normal 9.0-12.7 [facility] Comment on above: Order Comment: Speci men Type: BLOOD SPECIMENOrdering Facility: [facility] Address: [address] [place] [address] Performed By: #### 5 7021-8 ####[facility] LABIA [id number] [place] [address] [place] Platelets (Bld) [#/Vol] 214 10*3/uL Normal 150-400 [facility] Comment on above: Order Comment: Speci men Type: BLOOD SPECIMENOrdering Facility: [facility] Address: [address] [place] [address] Performed By: #### 5 7021-8 ####[facility] LABCLIA [id number] [place] [address] [place] RBC (Bld) [#/Vol] 4.25 10*6/uL Normal 4.20-6.00 [facility] Comment on above: Order Comment: Speci men Type: BLOOD SPECIMENOrdering Facility: [facility] Address: [address] [place] [address] Performed By: #### 5 7021-8 ####[facility] LABCLIA [id number] [place] [address] [place] WBC (Bld) [#/Vol] 16.24 10*3/uL High 3.70-11.00 [facility] Comment on above: Order Comment: Speci men Type: BLOOD SPECIMENOrdering Facility: [facility] Address: [address] [place] [address] Performed By: #### 5 7021-8 ####[facility] LABCLIA [id number] [address] [place] BLOOD TYPEon 023 ABO O Normal [facility] Comment on above: Order Comment: Speci men Type: BLOOD SPECIMENOrdering Facility: [facility] Address: [address] [place] [address] Performed By: #### C ONABO ####[facility] BLO[facility] BANKCLIA [id number] [address] [place] Rh Nom (Bld) Positive Normal [facility] Comment on above: Order Comment: Speci men Type: BLOOD SPECIMENOrdering Facility: [facility] Address: [address] [place] [address] Performed By: #### C ONABO ####[facility] MAIN BLOOD BANKCLIA [id number] [address] [place] CONSULTon 08-27-2022 CONSULT HNO ID: [id number] Author: Uzma Bates MD Service: Cardiovascular Medicine Author Type: Physician Type: Consults Filed: 08/27/2022 8:39 PM Note Text: [facility] CARDI[facility]ASCULAR MEDICINE CONSULT NOTE (Template ID [id number]) Olaf Briones [id number] PRIMARY SERVICE: Urology CONSULTING SERVICE: Cardiovascular Medicine: [...] HLD, DM, nephrolithiasis who was transferred from [facility] w/ gross hematuria. Hematuria started on Thursday [...] out . 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 In laborer laboratory, there were concerns that pacemaker might be necessary. After stent was deployed in prox RCA,AV block resolved and HR normalized. Pt was put on ASA, Brillinta, Lisinopril (2.5), and Coreg (6.25) and was discharged two days later. PAST MEDICAL HISTORY HTN, HLD, CAD, DM FAMILY HISTORY Son- [place], Daughter- [place] HOME MEDICATIONS allopurinol (ZYLOPRIM) 300 mg tabletTake [...] rash o (more content not included)... Normal [facility] ECG COMPLETEon 08-27-2022 ECG COMPLETE Ventricular Rate : 6 8 BPM Atrial Rate : 68 BPM P-R Interval : 186 ms QRS Duration : 102 ms Q-T Interval : 452 ms QTC Calculation(Bazett) : 480 ms Calculated P [place] : 7 degrees Calculated R [place] : -25 degrees Calculated T [place] : -33 degrees NORMAL SINUS RHYTHM MINIMAL VOLTAGE CRITERIA FOR LVH, MAY BE NORMAL VARIANT ( R in aVL ) CANNOT EXCLUDE ANTERIOR MYOCARDIAL INFARCTION , AGE UNDETERMINED ABNORMAL ECG Confirmed by CODY MANCIA MD (57) on 09/01/2022 3:04:36 PM NAME : OLAF BRIONES PID : [id number] : 1945 Gender : Male Race : Unknown ORD : [id number] Procedure Date : Aug 27 2022 12:56:05 [...] : , Acquired by : CAROL MALDONADO [facility] HISTORY PHYSICALon HISTORY PHYSICAL HNO ID: [id number] Author: David Andrews MD Service: Urology Author Type: Physician Type: HANDP Filed: 08/27/2022 9:26 PM Note Text: UROLOGY SERVICE HISTORY AND PHYSICAL Name: Olaf Briones Bed: H050 001/H050- Date: 08/27/2022 After Hours [facility] Urology Service Pager: [phone] ASSESSMENT AND PLAN Olaf Briones is a 77 year old male with PMHx of HTN, HLD, DM, recent STEMI (s/p JUHI), nephrolithiasis, transferred from [facility] for gross hematuria. Currently with 18Fr [...] catheter stops flowing clamp CBI and page [phone] - Will continue to follow urine, if remains clear may be able to avoid OR this admission in setting of recent STEMI requiring PCI - Working to obtain cardiology records from [facility] Gt Encarnacion MD PGY-6, Urology Pager: [phone] After 1800 and on weekends please page [phone] for assistance. Active Problems Prior [place] POA: Yes - placed on ASA 81, [...] STEMI (s/p JUHI), nephrolithiasis, transferred from [facility] for gross hematuria. He recently had primary revascularization of proximal RCA (3mm JUHI) placed at [facility] for STEMI on August 20. He [...] He is seen by Dr. Ivory in [facility] for nephrolithiasis. He previously had ESWL (2000), [...] as need (more content not included)... Normal [facility] 08-27-2022 MEDICAL [facility] HNO ID: [id number] Author: Francis Irizarry MD Service: Urology Author Type: Resident Type: Chg in Clinical Condition Filed: 08/27/2022 9:40 AM Note Text: Olaf Briones 08/27/2022 9:33 AM AMET for orthostatic hypotension Assessment: Olaf Briones is a 77 year old male with PMHx of HTN, HLD, DM, recent STEMI (s/p JUHI), nephrolithiasis, transferred from [facility] for gross hematuria. Currently with 18Fr [...] for recent STEMI last week at [facility]. Unable to see ECHO data, EKG [...] his is coming to visit. Stated his cloud security architect in [place] at [facility] is Dr. Zamora. Luis Angel on brillinta [...] bedside to have bring records from [facility] to here. Will also request ECHO report from [facility] as well. - Continue CBI, titrate to light pink Discussed with chief, Dr. Encarnacion, and staff, Dr. Sharon Irizarry MD Pager [phone], after hours or weekends please page [phone] Urology Resident, PGY-5 Normal [facility] HNO ID: [id number] Author: Claudy William APRN.CEMENT MASON HELPER Service: Critical Care Author Type: Nurse Practitioner [...] August 27, 2022 TIME: 9:11 AM Normal [facility] Magnesium SerPl-mCncon 08-27 Magnesium [Mass/Vol] 2.2 mg/dL Normal 1.7-2.3 [facility] Comment on above: Order Comment: Speci jasvir Type: BLOOD SPECIMENOrdering Facility: [facility] Address: [address] [place] [address] Performed By: #### 2 4321-2, 21793-8, 2777-1 ####[facility] LABCLIA [id number] [address] [place] PT panel Coag (PPP)on 2022 INR Coag (PPP) [Relative time] 1.0 {INR} Normal 0.9-1.3 [facility] Comment on above: Order Comment: Janiei jasvir Type: BLOOD SPECIMENOrdering Facility: [facility] Address: [address] [place] [address] Result Comment: Mago min K Antagonist (VKA) Therapeutic Range: INR 2 to 3 (Target INR of 2.5) Note: For patients treated with VKA drugs, such as warfarin, the [place] [employer] 2012 Guideline recommends [...] 70: 252-289 Performed By: #### 3 4528-0, 60559-3 ####[facility] LABCLIA [id number] [place] [address] [place] PT Coag (PPP) [Time] 10.4 s Normal 9.7-13.0 [facility] Comment on above: Order Comment: Speci men Type: BLOOD SPECIMENOrdering Facility: [facility] Address: [address] Performed By: #### 3 4528-0, 61733-7 ####[facility] LABCLIA [id number] [place] [id number] [place] Phosphate SerPl-mCncon 08-27 Phosphate [Mass/Vol] 3.7 mg/dL Normal 2.7-4.8 [facility] Comment on above: Order Comment: Speci men Type: BLOOD SPECIMENOrdering Facility: [facility] Address: [address] [place] [address] Performed By: #### 2 4321-2, 10919-0, 2777-1 ####[facility] LABCLIA [id number] [place] [address] [place] TYPE + SCREENon 08-27-2022 ABO O Normal [facility] Comment on above: Order Comment: Speci men Type: BLOOD SPECIMENOrdering Facility: [facility] Address: [address] [place] [address] Performed By: #### T SCR ####CC MAIN BLOOD BANKCLIA [id number] [address] OF [place] HISTORICAL AB SCR STATUS Negative Normal [facility] Comment on above: Order Comment: Speci men Type: BLOOD SPECIMENOrdering Facility: [facility] Address: [address] [place] [address] Performed By: #### T SCR ####CC [facility] BLOOD BANKIA [id number] [place] [address] [place] Rh Nom (Bld) Positive Normal [facility] Comment on above: Order Comment: Speci men Type: BLOOD SPECIMENOrdering Facility: [facility] Address: [address] [place] [address] Performed By: #### T SCR ####CC MAIN BLOOD BANKCLIA [id number] [address] [place] OF [place] TYPE AND SCREEN EXPIRATION 08/30/2022 23:59 Normal [facility] Comment on above: Order Comment: Speci men Type: BLOOD SPECIMENOrdering Facility: [facility] Address: [address] [place], [place] [address] Performed By: #### T SCR ####CC MAIN BLOOD BANKIA [id number] [place] [address] [place] aPTT PPPon 08-27-2022 aPTT Coag (PPP) [Time] 28.7 s Normal 23.0-32.4 [facility] Comment on above: Order Comment: Speci men Type: BLOOD SPECIMENOrdering Facility: [facility] Address: [address] [place], [place] [address] Performed By: #### 3 4528-0, 56357-9 ####[facility] LABCLIA [id number] LOAN [facility] [id number] STATES OF [facility] CHEMISTRYOrdered By: SYSTEM SYSTEM on 08-26-2022 [...] 88 mL/min/1.73 m2 Normal >=59mL/min /1.73 m2 [facility] Chem S Glucose [Mass/Vol] 154 mg/dL Normal [...] Cx Nom (U) No growth to date [facility] URINALYSISOrdered By: Jordan quintana on 08-26-2022 Bacteria [...] Interpretation Code Negative [facility] UA Auto SS [place].plasma/[place]. RBC (Bld) [Mass ratio] >75 /HPF Invalid Interpretation Code 0-3/HPF [facility] UA Auto SS Mucus Ql (Urine sed) 1+ (08/26/22 6:58 PM) Normal [facility] UA Auto SS Nitrite Ql (U) Positive *ABN* (08/26/22 6:58 PM) Invalid Interpretation Code Negative [facility] UA Auto SS pH (U) 7.5 *NA* (08/26/22 6:58 PM) Invalid Interpretation Code 5.0 - 9.0 [facility] UA Auto SS Protein (U) [Mass/Vol] 3+ *ABN* (08/26/22 6:58 PM) Invalid Interpretation Code Negative [facility] UA Auto SS Specific gravity (U) [Rel density] 1.015 *NA* (08/26/22 6:58 PM) Invalid Interpretation Code 1.005 - 1.030 [facility]A Auto SS UA Spec Desc Catheter (08/26/22 6:58 PM) Normal [facility] UA Auto SS Urobilinogen Qn (U) {Belem'U}/dL Invalid Interpretation Code 0.0 - 1.0 EU/dL [facility] UA Auto SS WBC Auto Ql (U) 2+ *ABN* (08/26/22 6:58 PM) Invalid Interpretation Code Negative [facility] UA Auto SS WBC LM.HPF (Urine sed) [#/Area] 16-25 /HPF Invalid Interpretation Code 0-5/HPF [facility] UA Auto SS Basic Metabolic Panelon 07-0 Anion gap [Moles/Vol] 10.8 mmol/L Normal 6.0-15.0 [facility] Comment on above: Performed By: #### H S TROP #### [facility] [address] [place] [address] [place] Calcium [Mass/Vol] 9.0 mg/dL Normal 8.6-10.3 [facility] Comment on above: Performed By: #### H S TROP #### [facility] [address] [place] [address] [place] Chloride [Moles/Vol] 105 mmol/L Normal 98-107 [facility] Comment on above: Performed By: #### H S TROP #### [facility] [address] [place] [id number] [place] CO2 [Moles/Vol] 26.0 mmol/L Normal 21.0-31.0 [facility] Comment on above: Performed By: #### H S TROP #### [facility] [address] [place] [address] [place] Creatinine [Mass/Vol] 0.79 mg/dL Normal 0.70-1.30 [facility] Comment on above: Performed By: #### H S TROP #### [place] [address] [place] Creatinine Clr Calc Pharmacy 74.81 Normal [facility] Comment on above: Result Comment: PERF ORMED BY: [place] [address] PATHOLOGIST OIL FI[employer] EQUIPMENT MECHANIC DREW REAL M.D. Performed By: #### H S TROP #### [place] [address] [place] GFR/1.73 sq M.predicted MDRD (S/P/Bld) [Vol rate/Area] mL/min/{1.73_m2} Normal [facility] Comment on above: Performed By: #### H S TROP #### [address] Glucose [Mass/Vol] 133 mg/dL High 70-100 [facility] Comment on above: Result Comment: Schulter Glucose Reference Range is dependent on time and content of last meal. Glucose of more than 200 mg/dL in a nonstressed, ambulatory subject supports the diagnosis of Diabetes Mellitus. ADA recommended reference range Performed By: #### H S TROP #### [address] Potassium [Moles/Vol] 3.8 mmol/L Normal 3.5-5.1 [facility] Comment on above: Performed By: #### H S TROP #### [place] [address] [place] Sodium [Moles/Vol] 138 mmol/L Normal 136-145 [facility] Comment on above: Performed By: #### H S TROP #### [place] [address] [place] Urea nitrogen [Mass/Vol] 20 mg/dL Normal 7-25 [facility] Comment on above: Performed By: #### H S TROP #### [place] [address] [place] Basophils Auto (Bld) [#/Vol] Ordered By: Steven Zamora on 08-22-2022 Basophils (Bld) [#/Vol] 0.0 10*3/uL 0.0-0.2 [facility] Basophils/100 WBC Auto (Bld) Ordered By: Steven Zamora on 08-22-2022 Basophils/100 WBC (Bld) 0.3 % . F [facility] Calcium [Mass/volume] in Ser um or PlasmaOrdered By: Steven Zamora on 08-22-2022 Calcium [Mass/Vol] 9.0 mg/dL 8.6-10.3 [facility] Carbon dioxide, total [Moles /volume] in Serum or PlasmaOrdered By: Steven Zamora on 08-22-2022 CO2 [Moles/Vol] 26.0 mmol/L 21.0-31.0 [facility] Chloride [Moles/volume] in S jamin or PlasmaOrdered By: Steven Zamora on 08-22-2022 Chloride [Moles/Vol] 105 mmol/L 98-107 [facility] Complete Blood Count Auto Di ffon 08-22-2022 Basophils (Bld) [#/Vol] 0.0 10*3/uL Normal 0.0-0.2 [facility] Comment on above: Result Comment: PERF ORMED BY: [place] [address] PATHOLOGIST OIL FIELD EQUIPMENT MECHANIC DREW REAL M.D. Performed By: #### H S TROP #### [facility] [address] [place] [address] [place] Basophils/100 WBC (Bld) 0.3 % Normal . [facility] Comment on above: Performed By: #### H S TROP #### [facility] [address] [place] [address] [place] Eosinophils (Bld) [#/Vol] 0.1 10*3/uL Normal 0.0-0.45 [facility] Comment on above: Performed By: #### H S TROP #### [facility] [address] [place] [address] [place] Eosinophils/100 WBC (Bld) 1.6 % Normal . [facility] Comment on above: Performed By: #### H S TROP #### [facility] [address] Erythrocyte distribution width (RBC) [Ratio] 13.7 % Normal 12.0-14.8 [facility] Comment on above: Performed By: #### H S TROP #### [address] Hematocrit (Bld) [Volume fraction] 41.1 % Normal 38.8-50.0 [facility] Comment on above: Performed By: #### H S TROP #### [address] Hemoglobin (Bld) [Mass/Vol] 13.9 g/dL Normal 13.0-17.0 [facility] Comment on above: Performed By: #### H S TROP #### [address] Lymphocytes (Bld) [#/Vol] 1.4 10*3/uL Normal 1.00-4.8 [facility] Comment on above: Performed By: #### H S TROP #### [address] Lymphocytes/100 WBC (Bld) 15.9 % Normal . [facility] Comment on above: Performed By: #### H S TROP #### [address] MCH (RBC) [Entitic mass] 31.5 pg Normal 27.5-35.2 [facility] Comment on above: Performed By: #### H S TROP #### [address] MCV (RBC) [Entitic vol] 92.8 fL Normal 83.5-101 F [facility] Comment on above: Performed By: #### H S TROP #### [address] Mean Corpuscular HGB Conc 33.9 g/dL Normal 32.5-35.6 [facility] Comment on above: Performed By: #### H S TROP #### [facility] [address] [place] [address] [place] Monocytes (Bld) [#/Vol] 0.9 10*3/uL High 0.0-0.8 [facility] Comment on above: Performed By: #### H S TROP #### [facility] [address] [place] [address] [place] Monocytes/100 WBC (Bld) 9.7 % Normal . [facility] Comment on above: Performed By: #### H S TROP #### [address] Neutrophils (Bld) [#/Vol] 6.4 10*3/uL Normal 1.8-7.7 [facility] Comment on above: Performed By: #### H S TROP #### [address] Neutrophils/100 WBC (Bld) 72.5 % Normal . [facility] Comment on above: Performed By: #### H S TROP #### [address] NRBC% 0.1 /100{WBC} Normal 0-0.5 [facility] Comment on above: Performed By: #### H S TROP #### [address] Platelet mean volume (Bld) [Entitic vol] 9.6 fL Normal 6.6-10.1 [facility] Comment on above: Performed By: #### H S TROP #### [place] [address] [place] Platelets (Bld) [#/Vol] 162 10*3/uL Normal 150-450 [facility] Comment on above: Performed By: #### H S TROP #### [place] [address] [place] RBC (Bld) [#/Vol] 4.43 10*6/uL Normal 3.90-5.60 [facility] Comment on above: Performed By: #### H S TROP #### [address] [address] [place] WBC (Bld) [#/Vol] 8.8 10*3/uL Normal 4.1-10.5 [facility] Comment on above: Performed By: #### H S TROP #### [facility] [address] [place] [address] Creatinine [Mass/volume] in Serum or PlasmaOrdered By: Steven Zamora on 08-22-2022 Creatinine [Mass/Vol] 0.79 mg/dL 0.70-1.30 [facility] ECG 12 lead ECGon 08-22-2022 ECG 12 lead ECG [facility] [place] [address] Electrocardiograph Report Signed Patient: Olaf Briones MR#: [id number] 2 : 1945 Acct:[id number] Age/Sex: 77 / M ADM Date: 08/20/22 Loc: Room: [address] [place] [address] Type: ADM IN Attending Dr: Steven Zamora [...] 08/22 0906 [facility] ECH echo transthoracicon ECH echo transthoracic [facility] Main [place] [id number] Echocardiogram Signed Patient: Olaf Briones MR#: [id number] 2 : 1945 Acct:[id number] Age/Sex: 77 / M ADM Date: 08/20/22 Loc: Room: 6D5821-3 Type: ADM IN Attending Dr: Steven Zamora [...] 08/22/22 0837 Signed By: Rojas Resendiz MD, [facility] 08/22/22 1514 Normal [facility] Eosinophils Auto (Bld) [#/Vo l]Ordered By: Steven Zamora on 08-22-2022 Eosinophils (Bld) [#/Vol] 0.1 10*3/uL 0.0-0.45 [facility] Eosinophils/100 WBC Auto (Bl d)Ordered By: Steven Zamora on 08-22-2022 Eosinophils/100 WBC (Bld) 1.6 % . [facility] Erythrocyte distribution wid th Auto (RBC) [Ratio]Ordered By: Steven Zamora on 08-22-2022 Erythrocyte distribution width (RBC) [Ratio] 13.7 % 12.0-14.8 [facility] Glucose [Mass/volume] in Ser um or PlasmaOrdered By: Steven Zamora on 08-22-2022 Glucose [Mass/Vol] 133 mg/dL 70-100 [facility] Comment on above: ADA recommended refe rence rangeRandom Glucose Reference Range is dependent on time and content of last meal. Glucose of more than 200 mg/dL in a nonstressed, ambulatory subject supports the diagnosis of Diabetes Mellitus. Hematocrit Auto (Bld) [Volum e fraction]Ordered By: Steven Zamora on 08-22-2022 Hematocrit (Bld) [Volume fraction] 41.1 % 38.8-50.0 [facility] Hemoglobin [Mass/volume] in BloodOrdered By: Steven Zamora on 08-22-2022 Hemoglobin (Bld) [Mass/Vol] 13.9 g/dL 13.0-17.0 [facility] Leukocytes [#/volume] correc betty for nucleated erythrocytes in Blood by Automated counOrdered By: Steven Zamora on 08-22-2022 WBC corrected for nucl RBC Auto (Bld) [#/Vol] 8.8 10*3/uL 4.1-10.5 [facility] Lymphocytes Auto (Bld) [#/Vo l]Ordered By: Steven Zamora on 08-22-2022 Lymphocytes (Bld) [#/Vol] 1.4 10*3/uL 1.00-4.8 [facility] Lymphocytes/100 WBC Auto (Bl d)Ordered By: Steven Zamora on 08-22-2022 Lymphocytes/100 WBC (Bld) 15.9 % . [facility] MCH Auto (RBC) [Entitic mass ]Ordered By: Steven Zamora on 08-22-2022 MCH (RBC) [Entitic mass] 31.5 pg 27.5-35.2 [facility] MCHC Auto (RBC) [Mass/Vol]Or dered By: Steven Zamora on 08-22-2022 MCHC (RBC) [Mass/Vol] 33.9 g/dL 32.5-35.6 [facility] MCV Auto (RBC) [Entitic vol] Ordered By: Steven Zamora on 08-22-2022 MCV (RBC) [Entitic vol] 92.8 fL 83.5-101 F [facility] Monocytes Auto (Bld) [#/Vol] Ordered By: Steven Zamora on 08-22-2022 Monocytes (Bld) [#/Vol] 0.9 10*3/uL 0.0-0.8 [facility] Monocytes/100 WBC Auto (Bld) Ordered By: Steven Zamora on 08-22-2022 Monocytes/100 WBC (Bld) 9.7 % . F [facility] Neutrophils Auto (Bld) [#/Vo l]Ordered By: Steven Zamora on 08-22-2022 Neutrophils (Bld) [#/Vol] 6.4 10*3/uL 1.8-7.7 [facility] Neutrophils/100 WBC Auto (Bl d)Ordered By: Steven Zamora on 08-22-2022 Neutrophils/100 WBC (Bld) 72.5 % . [facility] No Panel InformationOrdered By: Steven Zamora on 08-22-2022 Estimated GFR (CKD-EPI) > 60.0 mL/Min [facility] Creatinine Clearance (Chem 74.81 [facility] No Panel Informationon 08-22 0.0\S\0.0 Normal 0.0-0.2 -[facility]-Sandu eduardo 250 DO Work Phone: Comment on above: PERFORMED BY:[facility] [place], [place] [phone] MEDICAL DIRECTORDREW REAL M.D. 0.1\S\0.1 Normal 0-0.5 -[facility]u eduardo 250 DO Work Phone: 0.9\S\0.9 above high threshold 0.0-0.8 -[facility]u eduardo 250 DO Work Phone: 1.4\S\1.4 Normal 1.00-4.8 -[facility]u eduardo 250 DO Work Phone: [phone] 6.4\S\6.4 Normal 1.8-7.7 -[facility]-Sandu eduardo 250 DO Work Phone: [phone] 0.3\S\0.3 Normal . [facility]-Sandu eduardo 250 DO Work Phone: [phone] 1.6\S\1.6 Normal . [facility]-Sandu eduardo 250 DO Work Phone: 9.7\S\9.7 Normal . [facility]-Sandu eduardo 250 DO Work Phone: 15.9\S\15.9 Normal . [facility]-Sandu eduardo 250 DO Work Phone: [phone] 72.5\S\72.5 Normal . [facility]-Sandu eduardo 250 DO Work Phone: 9.6\S\9.6 Normal 6.6-10.1 [facility]-Sandu eduardo 250 DO Work Phone: [phone] 162\S\162 Normal 150-450 [facility] 250 DO Work Phone: 13.7\S\13.7 Normal 12.0-14.8 [facility]-Sandu eduardo 250 DO Work Phone: 33.9\S\33.9 Normal 32.5-35.6 [facility] ed[facility] 250 DO Work Phone: 31.5\S\31.5 Normal 27.5-35.2 [facility] ed[facility] 250 DO Work Phone: 92.8\S\92.8 Normal 83.5-101 [facility] Heart-iValidate.meu eduardo 250 DO Work Phone: 41.1\S\41.1 Normal 38.8-50.0 [facility]-Nandau eduardo 250 DO Work Phone: 13.9\S\13.9 Normal 13.0-17.0 [facility] Heart-iValidate.meu eduardo 250 DO Work Phone: 4.43\S\4.43 Normal 3.90-5.60 [facility] Heart-iValidate.meu eduardo 250 DO Work Phone: [phone] 8.8\S\8.8 Normal 4.1-10.5 [facility] ed[facility] 250 DO Work Phone: [phone] > 60.0 Normal [facility] ed[facility] 250 DO Work Phone: [phone] 10.8\S\10.8 Normal 6.0-15.0 [facility] Heart-[place] eduardo 250 DO Work Phone: 74.81\S\74.81 Normal -[facility]-[place] clark 250 DO Work Phone: Comment on above: PERFORMED BY:[facility]1111 [address] RAMÍREZ [phone] MEDICAL DIRECTORDREW REAL M.D. 9.0\S\9.0 Normal 8.6-10.3 [facility] Heart-[place] de souzay 250 DO Work Phone: 26.0\S\26.0 Normal 21.0-31.0 [facility]-[place] clark 250 DO Work Phone: 105\S\105 Normal 98-107 [facility] HeartCristy clark 250 DO Work Phone: [phone] 3.8\S\3.8 Normal 3.5-5.1 [facility] HeartCristy clark 250 DO Work Phone: 138\S\138 Normal 136-145 [facility] HeartCristy clark 250 DO Work Phone: 0.79\S\0.79 Normal 0.70-1.30 [facility] HeartCristy clark 250 DO Work Phone: 20\S\20 Normal 7-25 [facility] HeartCristy clark 250 DO Work Phone: 133\S\133 above high threshold 70-100 [facility] HeartCristy clark 250 DO Work Phone: [...] RBC Auto Ql (Bld) 0.1 /100{WBC} 0-0.5 [facility] Platelet mean volume Auto (B ld) [Entitic vol]Ordered By: Steven Zamora on 08-22-2022 Platelet mean volume (Bld) [Entitic vol] 9.6 fL 6.6-10.1 [facility] Platelets Auto (Bld) [#/Vol] Ordered By: Steven Zamora on 08-22-2022 Platelets (Bld) [#/Vol] 162 10*3/uL 150-450 [facility] Potassium [Moles/volume] in Serum or PlasmaOrdered By: Steven Zamora on 08-22-2022 Potassium [Moles/Vol] 3.8 mmol/L 3.5-5.1 [facility] RBC Auto (Bld) [#/Vol]Ordere d By: Steven Zamora on 08-22-2022 RBC (Bld) [#/Vol] 4.43 10*6/uL 3.90-5.60 [facility] Serum or plasma anion gap de terminationOrdered By: Steven Zamora on 08-22-2022 Anion gap [Moles/Vol] 10.8 mmol/L 6.0-15.0 [facility] Sodium [Moles/volume] in Ser um or PlasmaOrdered By: Steven Zamora on 08-22-2022 Sodium [Moles/Vol] 138 mmol/L 136-145 [facility] Urea nitrogen [Mass/volume] in Serum or PlasmaOrdered By: Steven Zamora on 08-22-2022 Urea nitrogen [Mass/Vol] 20 mg/dL 7-25 [facility] WBC Auto (Bld) [#/Vol]Ordere d By: Steven Zamora on 08-22-2022 WBC (Bld) [#/Vol] 8.8 10*3/uL 4.1-10.5 [facility] Basic Metabolic Panelon Anion gap [Moles/Vol] 11.7 mmol/L Normal 6.0-15.0 [facility] Comment on above: Performed By: #### H S TROP #### [address] Calcium [Mass/Vol] 9.4 mg/dL Normal 8.6-10.3 [facility] Comment on above: Performed By: #### H S TROP #### [facility] [address] [place] [address] [place] Chloride [Moles/Vol] 103 mmol/L Normal 98-107 [facility] Comment on above: Performed By: #### H S TROP #### [facility] [address] [place] [address] [place] CO2 [Moles/Vol] 27.1 mmol/L Normal 21.0-31.0 [facility] Comment on above: Performed By: #### H S TROP #### [facility] [address] [place] [address] [place] Creatinine [Mass/Vol] 0.71 mg/dL Normal 0.70-1.30 [facility] Comment on above: Performed By: #### H S TROP #### [place] [address] [place] Creatinine Clr Calc Pharmacy 74.81 [facility] Comment on above: Performed By: #### H S TROP #### [place] [address] [place] GFR/1.73 sq M.predicted MDRD (S/P/Bld) [Vol rate/Area] mL/min/{1.73_m2} [facility] Comment on above: Performed By: #### H S TROP #### [place] [address] [place] Glucose [Mass/Vol] 162 mg/dL High 70-100 [facility] Comment on above: Result Comment: [facility]ter Glucose Reference Range is dependent on time and content of last meal. Glucose of more than 200 mg/dL in a nonstressed, ambulatory subject supports the diagnosis of Diabetes Mellitus. ADA recommended reference range Performed By: #### H S TROP #### [facility] [address] [place] [address] [place] Potassium [Moles/Vol] 3.8 mmol/L Normal 3.5-5.1 [facility] Comment on above: Performed By: #### H S TROP #### [place] [address] [place] Sodium [Moles/Vol] 138 mmol/L Normal 136-145 [facility] Comment on above: Performed By: #### H S TROP #### [facility] [address] Urea nitrogen [Mass/Vol] 12 mg/dL Normal 7-25 [facility] Comment on above: Performed By: #### H S TROP #### [facility] [address] [place] [address] [place] Cholesterol [Mass/volume] in Serum or PlasmaOrdered By: Steven Zamora on 08-21-2022 Cholesterol [Mass/Vol] 132 mg/dL 140-200 [facility] Comment on above: Chol less than 200 m g/dl low riskChol 201-239 mg/dl borderline riskChol 240 mg/dl and greater high risk Cholesterol in LDL Calc [Mas s/Vol]Ordered By: Steven Zamora on 08-21-2022 Cholesterol in LDL [Mass/Vol] 62 mg/dL 0-100 [facility] Comment on above: LDL ATP III CLASSIFI CATIONLDL less than 100 mg/dL OptimalLDL 100-129 mg/dL Near or above optimalLDL 130-159 mg/dL Borderline highLDL 160-189 mg/dL HighLDL greater than 189 mg/dL Very high Cholesterol in VLDL Calc [Ma ss/Vol]Ordered By: Steven Zamora on 08-21-2022 Cholesterol in VLDL [Mass/Vol] 24 mg/dL [facility] Complete Blood Count Auto Di ffon 08-21-2022 Basophils (Bld) [#/Vol] 0.0 10*3/uL Normal 0.0-0.2 [facility] Comment on above: Result Comment: PERF ORMED BY: [place] [address] PATHOLOGIST OIL FIELD EQUIPMENT MECHANIC DREW REAL M.D. Performed By: #### H S TROP #### [facility] [address] [place] [address] [place] Basophils/100 WBC (Bld) 0.2 % Normal . [facility] Comment on above: Performed By: #### H S TROP #### [facility] [address] [place] [address] [place] Eosinophils (Bld) [#/Vol] 0.0 10*3/uL Normal 0.0-0.45 [facility] Comment on above: Performed By: #### H S TROP #### [address] Eosinophils/100 WBC (Bld) 0.1 % Normal . [facility] Comment on above: Performed By: #### H S TROP #### [address] Erythrocyte distribution width (RBC) [Ratio] 13.5 % Normal 12.0-14.8 [facility] Comment on above: Performed By: #### H S TROP #### [address] Hematocrit (Bld) [Volume fraction] 42.7 % Normal 38.8-50.0 [facility] Comment on above: Performed By: #### H S TROP #### [address] Hemoglobin (Bld) [Mass/Vol] 14.6 g/dL Normal 13.0-17.0 [facility] Comment on above: Performed By: #### H S TROP #### [address] Lymphocytes (Bld) [#/Vol] 1.1 10*3/uL Normal 1.00-4.8 [facility] Comment on above: Performed By: #### H S TROP #### [address] Lymphocytes/100 WBC (Bld) 8.2 % Normal . [facility] Comment on above: Performed By: #### H S TROP #### [address] [address] MCH (RBC) [Entitic mass] 31.4 pg Normal 27.5-35.2 [facility] Comment on above: Performed By: #### H S TROP #### [address] MCV (RBC) [Entitic vol] 91.6 fL Normal 83.5-101 F [facility] Comment on above: Performed By: #### H S TROP #### [facility] [address] Mean Corpuscular HGB Conc 34.3 g/dL Normal 32.5-35.6 [facility] Comment on above: Performed By: #### H S TROP #### [facility] [address] [place] [address] [place] Monocytes (Bld) [#/Vol] 0.8 10*3/uL Normal 0.0-0.8 [facility] Comment on above: Performed By: #### H S TROP #### [address] Monocytes/100 WBC (Bld) 6.1 % Normal . F [facility] Comment on above: Performed By: #### H S TROP #### [address] Neutrophils (Bld) [#/Vol] 11.7 10*3/uL High 1.8-7.7 [facility] Comment on above: Performed By: #### H S TROP #### [place] [address] [place] Neutrophils/100 WBC (Bld) 85.4 % Normal . [facility] Comment on above: Performed By: #### H S TROP #### [place] [address] [place] NRBC% 0.0 /100{WBC} Normal 0-0.5 [facility] Comment on above: Performed By: #### H S TROP #### [place] [address] [place] Platelet mean volume (Bld) [Entitic vol] 9.5 fL Normal 6.6-10.1 [facility] Comment on above: Performed By: #### H S TROP #### [facility] [address] [place] [address] [place] Platelets (Bld) [#/Vol] 171 10*3/uL Normal 150-450 [facility] Comment on above: Performed By: #### H S TROP #### [facility] [address] [place] [address] [place] RBC (Bld) [#/Vol] 4.66 10*6/uL Normal 3.90-5.60 [facility] Comment on above: Performed By: #### H S TROP #### [facility] [address] [place] [id number] [place] WBC (Bld) [#/Vol] 13.6 10*3/uL High 4.1-10.5 [facility] Comment on above: Performed By: #### H S TROP #### [facility] [address] ECG 12 lead ECGon 08-21-2022 ECG 12 lead ECG [facility] [place] [address] [place] [address] Electrocardiograph Report Signed Patient: Olaf Briones MR#: [id number] [birth year] : 1945 Acct:[id number] Age/Sex: 77 / M ADM Date: 08/20/22 Loc: Room: [address] [place] [address] Type: [facility] Attending Dr: Steven Zamora DO Ordering Provider: [...] By Joshua Atwood DO 08/21 0917 Normal [facility] Glucose Glucometer (BldC) [M ass/Vol]Ordered By: Steven Zamora on 08-21-2022 Glucose [Mass/Vol] 121 mg/dL [facility] Comment on above: Random Glucose Refer ence Range is dependent on time and content of last meal. Glucose of more than 200 mg/dL in a nonstressed, ambulatory subject supports the diagnosis of Diabetes Mellitus. Glucose Poct Glucometerson 0 08-21-2022 Commemt1 Glu2: Cleaned Meter [facility] Comment on above: Result Comment: PERF ORMED BY: [place] [address] PATHOLOGIST OIL FIELD EQUIPMENT MECHANIC DREW REAL M.D. Performed By: #### H S TROP #### [address] Glucose [Mass/Vol] 121 mg/dL Normal [facility] Comment on above: Result Comment: Schulter om Glucose Reference Range is dependent on time and content of last meal. Glucose of more than 200 mg/dL in a nonstressed, ambulatory subject supports the diagnosis of Diabetes Mellitus. Performed By: #### H S TROP #### [address] Commemt1 Glu2: Cleaned Meter [facility] Comment on above: Result Comment: PERF ORMED BY: [place] [address] PATHOLOGIST OIL FIELD EQUIPMENT MECHANIC DREW REAL M.D. Performed By: #### H S TROP #### [address] Glucose [Mass/Vol] 137 mg/dL Normal [facility] Comment on above: Result Comment: Schulter om Glucose Reference Range is dependent on time and content of last meal. Glucose of more than 200 mg/dL in a nonstressed, ambulatory subject supports the diagnosis of Diabetes Mellitus. Performed By: #### H S TROP #### [address] Laboratory - Chemistry and C hemistry - challengeon 08-21-2022 Cholesterol [Mass/Vol] 132\S\132 below low threshold 140-200 [facility] eduardo 250 DO Work Phone: Comment on above: Chol less than 200 m g/dl low risk Chol 201-239 mg/dl borderline risk Chol 240 mg/dl and greater high risk Cholesterol in LDL [Mass/Vol] 62\S\62 Normal 0-100 [facility] [employer] eduardo 250 DO Work Phone: Comment on above: LDL ATP III CLASSIFI CATION LDL less than 100 mg/dL Optimal LDL 100-129 mg/dL Near or above optimal LDL 130-159 mg/dL Borderline high LDL 160-189 mg/dL High LDL greater than 189 mg/dL Very high Lipid Panelon 08-21-2022 Cholesterol [Mass/Vol] 132 mg/dL Low 140-200 [facility] Comment on above: Result Comment: Chol less than 200 mg/dl low risk Chol 201-239 mg/dl borderline risk Chol 240 mg/dl and greater high risk Performed By: #### H S TROP #### [facility] [address] [place] [id number] [place] Cholesterol in HDL [Mass/Vol] 45 mg/dL Normal 23-92 [facility] Comment on above: Result Comment: HDL CHOL ATP-III CLASSIFICATION Cardiovascular Risk HDL > or equal to 60 mg/dL LOW HDL < 40 mg/dL HIGH Performed By: #### H S TROP #### [facility] [address] [place] [id number] [place] Cholesterol.total/Reny sterol in HDL [Mass ratio] 2.9 {ratio} Normal <5.0 [facility] Comment on above: Result Comment: PERF ORMED BY: [facility] [address] [place] [id number] PATHOLOGIST OIL FIELD EQUIPMENT MECHANIC DREW REAL M.D. Performed By: #### H S TROP #### [facility] [address] [place] [id number] [place] LDL Cholesterol,Calculated 62 mg/dL Normal 0-100 [facility] Comment on above: Result Comment: LDL ATP III CLASSIFICATION LDL less than 100 mg/dL Optimal LDL 100-129 mg/dL Near or above optimal LDL 130-159 mg/dL Borderline high LDL 160-189 mg/dL High LDL greater than 189 mg/dL Very high Performed By: #### H S TROP #### [facility] [address] Triglyceride w/Reflex 124 mg/dL Normal 0-149 [facility] Comment on above: Result Comment: TRIG ATP III CLASSIFICATION TRIG less than 150 mg/dL Normal TRIG 150-199 mg/dL Borderline high TRIG 200-500 mg/dL High TRIG greater than 500 mg/dL Very high Standard traceable to the Center for Disease Conrtrol and Prevention (CDC) test method. Performed By: #### H S TROP #### [facility] [address] VLDL CHOLESTEROL 24 mg/dL Normal [facility] Comment on above: Performed By: #### H S TROP #### [facility] [address] No Panel InformationOrdered By: Steven Zamora on 08-21-2022 Bedside Glucose Comment Glu2: cleaned meter [facility] No Panel Informationon 08-21 Glu2: Cleaned Meter Normal [facility] eduardo 250 DO Work Phone: Comment on above: PERFORMED BY:[place] [address] [address] [place], [place] [phone] MEDICAL DIRECTORDREW REAL M.D. 121\S\121 [facility] -[facility] eduardo 250 DO Work Phone: Comment on above: Random Glucose Refer ence Range is dependent on time and content of last meal. Glucose of more than 200 mg/dL in a nonstressed, ambulatory subject supports the diagnosis of Diabetes Mellitus. Glu2: Cleaned Meter Normal [facility] eduardo 250 DO Work Phone: Comment on above: PERFORMED BY:[place] [address] [address] [place], [place] [phone] MEDICAL DIRECTORDREW REAL M.D. 137\S\137 Normal [facility] eduardo 250 DO Work Phone: Comment on above: Random Glucose Refer ence Range is dependent on time and content of last meal. Glucose of more than 200 mg/dL in a nonstressed, ambulatory subject supports the diagnosis of Diabetes Mellitus. 0.0\S\0.0 Normal 0-0.5 [facility] eduardo 250 DO Work Phone: Comment on above: PERFORMED BY:[place] [address] [address] [place], [place] [phone] MEDICAL DIRECTORDREW REAL M.D. 0.8\S\0.8 Normal 0.0-0.8 [facility] eduardo 250 DO Work Phone: [phone] 1.1\S\1.1 Normal 1.00-4.8 [facility] eduardo 250 DO Work Phone: [phone] 11.7\S\11.7 Normal 6.0-15.0 [facility] eduardo 250 DO Work Phone: [phone] 0.2\S\0.2 Normal . [facility] eduardo 250 DO Work Phone: [phone] 0.1\S\0.1 Normal . [facility] eduardo 250 DO Work Phone: 6.1\S\6.1 Normal . [facility] eduardo 250 DO Work Phone: [phone] 8.2\S\8.2 Normal . [facility] eduardo 250 DO Work Phone: [phone] 85.4\S\85.4 Normal . [facility] eduardo 250 DO Work Phone: [phone] 9.5\S\9.5 Normal 6.6-10.1 [facility] eduardo 250 DO Work Phone: [phone] 171\S\171 Normal 150-450 [facility] eduardo 250 DO Work Phone: [phone] 13.5\S\13.5 Normal 12.0-14.8 [facility] eduardo 250 DO Work Phone: [phone] 34.3\S\34.3 Normal 32.5-35.6 [facility] eduardo 250 DO Work Phone: [phone] 31.4\S\31.4 Normal 27.5-35.2 [facility] eduardo 250 DO Work Phone: [phone] 91.6\S\91.6 Normal 83.5-101 [facility] eduardo 250 DO Work Phone: [phone] 42.7\S\42.7 Normal 38.8-50.0 [facility] eduardo 250 DO Work Phone: [phone] 14.6\S\14.6 Normal 13.0-17.0 [facility] eduardo 250 DO Work Phone: [phone] 4.66\S\4.66 Normal 3.90-5.60 [facility] eduardo 250 DO Work Phone: [phone] 13.6\S\13.6 above high threshold 4.1-10.5 [facility] eduardo 250 DO Work Phone: [phone] > 60.0 Normal [facility] eduardo 250 DO Work Phone: [phone] 74.81\S\74.81 Normal [facility] eduardo 250 DO Work Phone: [phone] 9.4\S\9.4 Normal 8.6-10.3 [facility] eduardo 250 DO Work Phone: [phone] 27.1\S\27.1 Normal 21.0-31.0 [facility] eduardo 250 DO Work Phone: [phone] 103\S\103 Normal 98-107 [facility] eduardo 250 DO Work Phone: [phone] 3.8\S\3.8 Normal 3.5-5.1 [facility] eduardo 250 DO Work Phone: 138\S\138 Normal 136-145 [facility] Carter Adams DO Work Phone: 0.71\S\0.71 Normal 0.70-1.30 [facility] Carter Adams DO Work Phone: 12\S\12 Normal 7-25 [facility] Carter Adams DO Work Phone: 162\S\162 above high threshold 70-100 [facility] Carter Adams DO Work Phone: Comment on above: Random Glucose Refer ence Range is dependent on time and content of last meal. Glucose of more than 200 mg/dL in a nonstressed, ambulatory subject supports the diagnosis of Diabetes Mellitus. ADA recommended reference range 2.9\S\2.9 Normal <5.0 [facility] Carter Adams DO Work Phone: Comment on above: PERFORMED BY:[facility] [place], [place] [phone] MEDICAL DIRECTORDREW REAL M.D. 24\S\24 Normal [facility] Carter Adams DO Work Phone: 124\S\124 Normal 0-149 [facility] Carter Adams DO Work Phone: Comment on above: TRIG ATP III CLASSIF ICATION TRIG less than 150 mg/dL Normal TRIG 150-199 mg/dL Borderline high TRIG 200-500 mg/dL High TRIG greater than 500 mg/dL Very high Standard traceable to the Center for Disease Conrtrol and Prevention (CDC) test method. 45\S\45 Normal 23-92 [facility] Carter Adams DO Work Phone: Comment on above: HDL CHOL ATP-III CLA SSIFICATION Cardiovascular Risk HDL > or equal to 60 mg/dL LOW HDL < 40 mg/dL HIGH 95787.9\S\10928.9 Critically high 0.0-20.0 [facility] 250 DO Work Phone: Comment on above: Critical Result : Ca lled to and read back by: MARC BUSTILLOS at: 08/21/2022 06:30:29 by:[id number] BY:[address] [place], [place] [phone] MEDICAL DIRECTORDREW REAL M.D. 57946.9\S\84956.9 Critically high 0.0-20.0 [facility] 250 DO Work Phone: Comment on above: Critical Result : Ca lled to and read back by: RIDGE WATERS at: 08/21/2022 04:23:36 by:[id number] BY:[address] [place], [place] [phone] MEDICAL DIRECTORDREW REAL M.D. 71882.3\S\59069.3 Critically high 0.0-20.0 [facility] 250 DO Work Phone: Comment on above: Critical Result : Ca lled to and read back by: SALLY BUSTILLOS at: 08/21/2022 00:52:26 by:[id number] BY:[address] [place], [place] [phone] MEDICAL DIRECTORDREW REAL M.D. Serum or plasma high density lipoprotein (HDL) cholesterol measurementOrdered By: Steven Zamora on 08-21-2022 Cholesterol in HDL [Mass/Vol] 45 mg/dL 23-92 [facility] Comment on above: HDL CHOL ATP-III CLA SSIFICATION Cardiovascular RiskHDL > or equal to 60 mg/dL LOWHDL < 40 mg/dL HIGH Serum or plasma total choles terol/high density lipoprotein (HDL) cholesterol mass ratOrdered By: Steven Zamora on 08-21-2022 Cholesterol.total/Reny sterol in HDL [Mass ratio] 2.9 {ratio} <5.0 [facility] Triglyceride [Mass/volume] i n Serum or PlasmaOrdered By: Steven Zamora on 08-21-2022 Triglyceride [Mass/Vol] 124 mg/dL 0-149 [facility] Comment on above: TRIG ATP III CLASSIF ICATIONTRIG less than 150 mg/dL NormalTRIG 150-199 mg/dL Borderline highTRIG 200-500 mg/dL High TRIG greater than 500 mg/dL Very highStandard traceable to the Center for Disease Conrtrol and Prevention (CDC) test method. Troponin I High Sensitivityo n 08-21-2022 Troponin I High Sensitivity 06157.9 pg/mL Off scale high 0.0-20.0 [facility] Comment on above: Result Comment: Crit ical Result : Called to and read back by: MARC BUSTILLOS at: 08/21/2022 06:30:29 by:[id number] PERFORMED BY: [place] [address] PATHOLOGIST OIL FIELD EQUIPMENT MECHANIC DREW REAL M.D. Performed By: #### H S TROP #### [facility] [address] [place] [address] Troponin I High Sensitivity 45718.9 pg/mL Off scale high 0.0-20.0 [facility] Comment on above: Result Comment: Crit ical Result : Called to and read back by: RIDGE WATERS at: 08/21/2022 04:23:36 by:[id number] PERFORMED BY: [place] [address] PATHOLOGIST OIL FIELD EQUIPMENT MECHANIC DREW REAL M.D. Performed By: #### H S TROP #### [address] Troponin I High Sensitivity 37627.3 pg/mL Off scale high 0.0-20.0 [facility] Comment on above: Result Comment: Crit ical Result : Called to and read back by: SALLY BUSTILLOS at: 08/21/2022 00:52:26 by:[id number] PERFORMED BY: [place] [address] PATHOLOGIST OIL FIELD EQUIPMENT MECHANIC DREW REAL M.D. Performed By: #### H S TROP #### [facility] [address] Troponin I.cardiac [Mass/vol ume] in Serum or Plasma by Detection limit <= 0.01 ng/Ordered By: Steven Zamora on 08-21-2022 Troponin I.cardiac DL <= 0.01 ng/mL [Mass/Vol] 89282.9 pg/mL 0.0-20.0 [facility] Comment on above: Critical Result : Ca lled to and read back by: MARC BUSTILLOS at: 08/21/2022 06:30:29 by:[id number] Activated partial thrombopla stin time (aPTT) in platelet poor plasma by coagulation aOrdered By: Cirilo Wise on 08-20-2022 aPTT Coag (PPP) [Time] 25.1 s 25.1-36.5 [facility] B-Type Natriuretic Peptideon 08-20-2022 Natriuretic peptide B (Bld) [Mass/Vol] 24.0 pg/mL Normal 5-100 [facility] Comment on above: Result Comment: PERF ORMED BY: [place] [address] PATHOLOGIST OIL FIELD EQUIPMENT MECHANIC DREW REAL M.D. Performed By: #### B AUTOMATIC GLOVE FORMER, CK, CBC, HS TROP, BMP, PT, PTT #### [address] Basic Metabolic Panelon 07-0 Anion gap [Moles/Vol] 14.1 mmol/L Normal 6.0-15.0 [facility] Comment on above: Performed By: #### B AUTOMATIC GLOVE FORMER, CK, CBC, HS TROP, BMP, PT, PTT #### [facility] [address] Calcium [Mass/Vol] 9.4 mg/dL Normal 8.6-10.3 [facility] Comment on above: Performed By: #### B AUTOMATIC GLOVE FORMER, CK, CBC, HS TROP, BMP, PT, PTT #### [address] Chloride [Moles/Vol] 105 mmol/L Normal 98-107 [facility] Comment on above: Performed By: #### B AUTOMATIC GLOVE FORMER, CK, CBC, HS TROP, BMP, PT, PTT #### [facility] [address] CO2 [Moles/Vol] 24.3 mmol/L Normal 21.0-31.0 [facility] Comment on above: Performed By: #### B AUTOMATIC GLOVE FORMER, CK, CBC, HS TROP, BMP, PT, PTT #### [facility] [address] Creatinine [Mass/Vol] 0.92 mg/dL Normal 0.70-1.30 [facility] Comment on above: Performed By: #### B AUTOMATIC GLOVE FORMER, CK, CBC, HS TROP, BMP, PT, PTT #### [facility] [address] Creatinine Clr Calc Pharmacy 65.05 [facility] Comment on above: Result Comment: PERF ORMED BY: [place] [address] PATHOLOGIST OIL FIELD EQUIPMENT MECHANIC DRWE REAL M.D. Performed By: #### B AUTOMATIC GLOVE FORMER, CK, CBC, HS TROP, BMP, PT, PTT #### [address] GFR/1.73 sq M.predicted MDRD (S/P/Bld) [Vol rate/Area] mL/min/{1.73_m2} [facility] Comment on above: Performed By: #### B AUTOMATIC GLOVE FORMER, CK, CBC, HS TROP, BMP, PT, PTT #### [facility] [address] Glucose [Mass/Vol] 172 mg/dL High 70-100 [facility] Comment on above: Result Comment: [place] Glucose Reference Range is dependent on time and content of last meal. Glucose of more than 200 mg/dL in a nonstressed, ambulatory subject supports the diagnosis of Diabetes Mellitus. ADA recommended reference range Performed By: #### B AUTOMATIC GLOVE FORMER, CK, CBC, HS TROP, BMP, PT, PTT #### [facility] [address] Potassium [Moles/Vol] 3.4 mmol/L Low 3.5-5.1 [facility] Comment on above: Performed By: #### B AUTOMATIC GLOVE FORMER, CK, CBC, HS TROP, BMP, PT, PTT #### [facility] [address] Sodium [Moles/Vol] 140 mmol/L Normal 136-145 [facility] Comment on above: Performed By: #### B AUTOMATIC GLOVE FORMER, CK, CBC, HS TROP, BMP, PT, PTT #### [facility] [address] Urea nitrogen [Mass/Vol] 15 mg/dL Normal 7-25 [facility] Comment on above: Performed By: #### B AUTOMATIC GLOVE FORMER, CK, CBC, HS TROP, BMP, PT, PTT #### [facility] [address] Basophils Auto (Bld) [#/Vol] Ordered By: Cirilo Wise on 08-20-2022 Basophils (Bld) [#/Vol] 0.1 10*3/uL 0.0-0.2 [facility] Basophils/100 WBC Auto (Bld) Ordered By: Cirilo Wise on 08-20-2022 Basophils/100 WBC (Bld) 0.5 % . [facility] Calcium [Mass/volume] in Ser um or PlasmaOrdered By: Cirilo Wise on 08-20-2022 Calcium [Mass/Vol] 9.4 mg/dL 8.6-10.3 [facility] Carbon dioxide, total [Moles /volume] in Serum or PlasmaOrdered By: Cirilo Wise on 08-20-2022 CO2 [Moles/Vol] 24.3 mmol/L 21.0-31.0 [facility] Chloride [Moles/volume] in S jamin or PlasmaOrdered By: Cirilo Wise on 08-20-2022 Chloride [Moles/Vol] 105 mmol/L 98-107 [facility] Complete Blood Count Auto Di ffon 08-20-2022 Basophils (Bld) [#/Vol] 0.1 10*3/uL Normal 0.0-0.2 [facility] Comment on above: Result Comment: PERF ORMED BY: [place] [address] PATHOLOGIST OIL FIELD EQUIPMENT MECHANIC DREW REAL M.D. Performed By: #### B AUTOMATIC GLOVE FORMER, CK, CBC, HS TROP, BMP, PT, PTT #### [address] Basophils/100 WBC (Bld) 0.5 % Normal . [facility] Comment on above: Performed By: #### B AUTOMATIC GLOVE FORMER, CK, CBC, HS TROP, BMP, PT, PTT #### [address] Eosinophils (Bld) [#/Vol] 0.1 10*3/uL Normal 0.0-0.45 [facility] Comment on above: Performed By: #### B AUTOMATIC GLOVE FORMER, CK, CBC, HS TROP, BMP, PT, PTT #### [address] Eosinophils/100 WBC (Bld) 1.3 % Normal . [facility] Comment on above: Performed By: #### B AUTOMATIC GLOVE FORMER, CK, CBC, HS TROP, BMP, PT, PTT #### [address] Erythrocyte distribution width (RBC) [Ratio] 13.6 % Normal 12.0-14.8 [facility] Comment on above: Performed By: #### B AUTOMATIC GLOVE FORMER, CK, CBC, HS TROP, BMP, PT, PTT #### [address] Hematocrit (Bld) [Volume fraction] 44.0 % Normal 38.8-50.0 [facility] Comment on above: Performed By: #### B AUTOMATIC GLOVE FORMER, CK, CBC, HS TROP, BMP, PT, PTT #### [address] Hemoglobin (Bld) [Mass/Vol] 15.1 g/dL Normal 13.0-17.0 [facility] Comment on above: Performed By: #### B AUTOMATIC GLOVE FORMER, CK, CBC, HS TROP, BMP, PT, PTT #### [address] Lymphocytes (Bld) [#/Vol] 2.8 10*3/uL Normal 1.00-4.8 [facility] Comment on above: Performed By: #### B AUTOMATIC GLOVE FORMER, CK, CBC, HS TROP, BMP, PT, PTT #### [address] Lymphocytes/100 WBC (Bld) 26.2 % Normal . [facility] Comment on above: Performed By: #### B AUTOMATIC GLOVE FORMER, CK, CBC, HS TROP, BMP, PT, PTT #### [address] MCH (RBC) [Entitic mass] 32.1 pg Normal 27.5-35.2 [facility] Comment on above: Performed By: #### B AUTOMATIC GLOVE FORMER, CK, CBC, HS TROP, BMP, PT, PTT #### [address] MCV (RBC) [Entitic vol] 93.4 fL Normal 83.5-101 [facility] Comment on above: Performed By: #### B AUTOMATIC GLOVE FORMER, CK, CBC, HS TROP, BMP, PT, PTT #### [address] Mean Corpuscular HGB Conc 34.4 g/dL Normal 32.5-35.6 [facility] Comment on above: Performed By: #### B AUTOMATIC GLOVE FORMER, CK, CBC, HS TROP, BMP, PT, PTT #### [address] Monocytes (Bld) [#/Vol] 0.9 10*3/uL High 0.0-0.8 [facility] Comment on above: Performed By: #### B AUTOMATIC GLOVE FORMER, CK, CBC, HS TROP, BMP, PT, PTT #### [address] Monocytes/100 WBC (Bld) 16.35 % Normal 0.00-20.00 [facility] Comment on above: Performed By: #### B AUTOMATIC GLOVE FORMER, CK, CBC, HS TROP, BMP, PT, PTT #### [facility] [address] [place] [address] [place] Monocytes/100 WBC (Bld) 7.9 % Normal . [facility] Comment on above: Performed By: #### B AUTOMATIC GLOVE FORMER, CK, CBC, HS TROP, BMP, PT, PTT #### [facility] [address] [place] [address] [place] Neutrophils (Bld) [#/Vol] 6.9 10*3/uL Normal 1.8-7.7 [facility] Comment on above: Performed By: #### B AUTOMATIC GLOVE FORMER, CK, CBC, HS TROP, BMP, PT, PTT #### [address] Neutrophils/100 WBC (Bld) 64.1 % Normal . [facility] Comment on above: Performed By: #### B AUTOMATIC GLOVE FORMER, CK, CBC, HS TROP, BMP, PT, PTT #### [address] NRBC% 0.1 /100{WBC} Normal 0-0.5 [facility] Comment on above: Performed By: #### B AUTOMATIC GLOVE FORMER, CK, CBC, HS TROP, BMP, PT, PTT #### [address] Platelet mean volume (Bld) [Entitic vol] 9.7 fL Normal 6.6-10.1 [facility] Comment on above: Performed By: #### B AUTOMATIC GLOVE FORMER, CK, CBC, HS TROP, BMP, PT, PTT #### [place] [address] [place] Platelets (Bld) [#/Vol] 215 10*3/uL Normal 150-450 [facility] Comment on above: Performed By: #### B AUTOMATIC GLOVE FORMER, CK, CBC, HS TROP, BMP, PT, PTT #### [place] [address] [place] RBC (Bld) [#/Vol] 4.71 10*6/uL Normal 3.90-5.60 [facility] Comment on above: Performed By: #### B AUTOMATIC GLOVE FORMER, CK, CBC, HS TROP, BMP, PT, PTT #### [address] WBC (Bld) [#/Vol] 10.7 10*3/uL High 4.1-10.5 [facility] Comment on above: Performed By: #### B AUTOMATIC GLOVE FORMER, CK, CBC, HS TROP, BMP, PT, PTT #### [address] Creatine Kinaseon 08-20-2022 CK [Catalytic activity/Vol] 115 U/L Normal [facility] Comment on above: Performed By: #### B AUTOMATIC GLOVE FORMER, CK, CBC, HS TROP, BMP, PT, PTT #### [address] Creatine kinase [Enzymatic a ctivity/volume] in Serum or PlasmaOrdered By: Cirilo Wise on 08-20-2022 CK [Catalytic activity/Vol] 115 U/L [facility] Creatinine [Mass/volume] in Serum or PlasmaOrdered By: Cirilo Wise on 08-20-2022 Creatinine [Mass/Vol] 0.92 mg/dL 0.70-1.30 [facility] ECG 12 lead ECGon 08-20-2022 ECG 12 lead ECG [facility] Main [place] [address] [place] [address] Electrocardiograph Report Signed Patient: Olaf Briones MR#: [id number] 2 : 1945 Acct:[id number] Age/Sex: 77 / M ADM Date: 08/20/22 Loc: Room: [address] [place] [address] Type: [facility] Attending Dr: Steven Zamora DO [...] , age undetermined Inferior injury pattern ACUTE FL / STEMI Consider right ventricular involvement in acute inferior infarct Abnormal ECG No previous ECGs available Confirmed by SHANNON COCHRAN DO ([id number]) on 08/21/2022 2:06:14 AM Referred By: Electronically Signed By:SHANNON COCHRAN DO Transcribed By: MUS Signed By Shannon Cochran DO 08/21 0206 Normal [facility] Eosinophils Auto (Bld) [#/Vo l]Ordered By: Cirilo Wise on 08-20-2022 Eosinophils (Bld) [#/Vol] 0.1 10*3/uL 0.0-0.45 [facility] Eosinophils/100 WBC Auto (Bl d)Ordered By: Cirilo Wise on 08-20-2022 Eosinophils/100 WBC (Bld) 1.3 % . [facility] Erythrocyte distribution wid th Auto (RBC) [Ratio]Ordered By: Cirilo Wise on 08-20-2022 Erythrocyte distribution width (RBC) [Ratio] 13.6 % 12.0-14.8 [facility] Glucose [Mass/volume] in Ser um or PlasmaOrdered By: Cirilo Wise on 08-20-2022 Glucose [Mass/Vol] 172 mg/dL 70-100 [facility] Comment on above: ADA recommended refe rence rangeRandom Glucose Reference Range is dependent on time and content of last meal. Glucose of more than 200 mg/dL in a nonstressed, ambulatory subject supports the diagnosis of Diabetes Mellitus. Hematocrit Auto (Bld) [Volum e fraction]Ordered By: Cirilo Wise on 08-20-2022 Hematocrit (Bld) [Volume fraction] 44.0 % 38.8-50.0 [facility] Hemoglobin [Mass/volume] in BloodOrdered By: Cirilo Wise on 08-20-2022 Hemoglobin (Bld) [Mass/Vol] 15.1 g/dL 13.0-17.0 [facility] Laboratory - CoagulationOrde red By: Cirilo Wise on 08-20-2022 PT Coag (PPP) [Time] 11.4 s 9.0-12.9 [facility] Leukocytes [#/volume] correc betty for nucleated erythrocytes in Blood by Automated counOrdered By: Cirilo Wise on 08-20-2022 WBC corrected for nucl RBC Auto (Bld) [#/Vol] 10.7 10*3/uL 4.1-10.5 [facility] Lymphocytes Auto (Bld) [#/Vo l]Ordered By: Cirilo Wise on 08-20-2022 Lymphocytes (Bld) [#/Vol] 2.8 10*3/uL 1.00-4.8 [facility] Lymphocytes/100 WBC Auto (Bl d)Ordered By: Cirilo Wise on 08-20-2022 Lymphocytes/100 WBC (Bld) 26.2 % . [facility] MCH Auto (RBC) [Entitic mass ]Ordered By: Cirilo Wise on 08-20-2022 MCH (RBC) [Entitic mass] 32.1 pg 27.5-35.2 [facility] MCHC Auto (RBC) [Mass/Vol]Or dered By: Cirilo Wise on 08-20-2022 MCHC (RBC) [Mass/Vol] 34.4 g/dL 32.5-35.6 [facility] MCV Auto (RBC) [Entitic vol] Ordered By: Cirilo Wise on 08-20-2022 MCV (RBC) [Entitic vol] 93.4 fL 83.5-101 F [facility] Monocyte distribution width [Entitic volume] in Blood by AutomatedOrdered By: Cirilo Wise on 08-20-2022 Monocyte distribution width Auto (Bld) [Entitic vol] 16.35 % 0.00-20.00 [facility] Monocytes Auto (Bld) [#/Vol] Ordered By: Cirilo Wise on 08-20-2022 Monocytes (Bld) [#/Vol] 0.9 10*3/uL 0.0-0.8 [facility] Monocytes/100 WBC Auto (Bld) Ordered By: Cirilo Wise on 08-20-2022 Monocytes/100 WBC (Bld) 7.9 % . F [facility] Natriuretic peptide B [Mass/ Vol]Ordered By: Cirilo Wise on 08-20-2022 Natriuretic peptide B (Bld) [Mass/Vol] 24.0 pg/mL 5-100 [facility] Neutrophils Auto (Bld) [#/Vo l]Ordered By: Cirilo Wise on 08-20-2022 Neutrophils (Bld) [#/Vol] 6.9 10*3/uL 1.8-7.7 [facility] Neutrophils/100 WBC Auto (Bl d)Ordered By: Cirilo Wise on 08-20-2022 Neutrophils/100 WBC (Bld) 64.1 % . [facility] No Panel Informationon 08-20 2529.3\S\2529.3 Critically high 0.0-20.0 [facility] eduardo 250 DO Work Phone: Comment on above: Critical Result : Ca lled to and read back by: ARY BUSTILLOS at: 08/20/2022 19:45:52 by:[id number] BY:[facility] [facility], [place] [id number] MEDICAL DIRECTORDREW REAL M.D. No Panel InformationOrdered By: Cirilo Wise on 08-20-2022 Estimated GFR (CKD-EPI) > 60.0 mL/Min [facility] Creatinine Clearance (Chem 65.05 [facility] Nucleated erythrocytes [Pres ence] in Blood by Automated countOrdered By: Cirilo Wise on 08-20-2022 Nucleated RBC Auto Ql (Bld) 0.1 /100{WBC} 0-0.5 [facility] Partial Thromboplastin Timeo n 08-20-2022 aPTT Coag (Bld) [Time] 25.1 s Normal 25.1-36.5 [facility] Comment on above: Result Comment: PERF ORMED BY: [facility] [address] [place] [address] PATHOLOGIST OIL FIELD EQUIPMENT MECHANIC DREW REAL M.D. Performed By: #### B AUTOMATIC GLOVE FORMER, CK, CBC, HS TROP, BMP, PT, PTT #### [facility] [address] [place] [address] [facility] Platelet mean volume Auto (B ld) [Entitic vol]Ordered By: Cirilo Wise on 08-20-2022 Platelet mean volume (Bld) [Entitic vol] 9.7 fL 6.6-10.1 [facility] Platelet poor plasma interna tional normalized ratio (INR) by coagulation assay (relatOrdered By: Cirilo Wise on 08-20-2022 INR Coag (PPP) [Relative time] 1.0 {INR} [facility] Comment on above: INR Therapeutic [...] 08-20-2022 Platelets (Bld) [#/Vol] 215 10*3/uL 150-450 [facility] Potassium [Moles/volume] in Serum or PlasmaOrdered By: Cirilo Wise on 08-20-2022 Potassium [Moles/Vol] 3.4 mmol/L 3.5-5.1 [facility] Prothrombin Time INRon 08-20 INR Coag (PPP) [Relative time] 1.0 {INR} Normal [facility] Comment on above: Result [...] 3 - 4.5 Performed By: #### B AUTOMATIC GLOVE FORMER, CK, CBC, HS TROP, BMP, PT, PTT #### [facility] [address] PT Coag (PPP) [Time] 11.4 s Normal 9.0-12.9 [facility] Comment on above: Performed By: #### B AUTOMATIC GLOVE FORMER, CK, CBC, HS TROP, BMP, PT, PTT #### [place] [address] RBC Auto (Bld) [#/Vol]Ordere d By: Cirilo Wise on 08-20-2022 RBC (Bld) [#/Vol] 4.71 10*6/uL 3.90-5.60 [facility] Serum or plasma anion gap de terminationOrdered By: Cirilo Wise on 08-20-2022 Anion gap [Moles/Vol] 14.1 mmol/L 6.0-15.0 [facility] Sodium [Moles/volume] in Ser um or PlasmaOrdered By: Cirilo Wise on 08-20-2022 Sodium [Moles/Vol] 140 mmol/L 136-145 [facility] Troponin I High Sensitivityo n 08-20-2022 Troponin I High Sensitivity 9010.4 pg/mL Off scale high 0.0-20.0 [facility] Comment on above: Result Comment: Crit ical Result : Called to and read back by: ARY BUSTILLOS at: 08/20/2022 22:35:19 by:[id number] PERFORMED BY: [place] [address] PATHOLOGIST OIL FIELD EQUIPMENT MECHANIC DREW REAL M.D. Performed By: #### H S TROP #### [address] Troponin I High Sensitivity 2529.3 pg/mL Off scale high 0.0-20.0 [facility] Comment on above: Result Comment: Crit ical Result : Called to and read back by: ARY BUSTILLOS at: 08/20/2022 19:45:52 by:[id number] PERFORMED BY: [place] [address] PATHOLOGIST OIL FIELD EQUIPMENT MECHANIC DREW REAL M.D. Performed By: #### H S TROP #### [address] Troponin I High Sensitivity 366.3 pg/mL Off scale high 0.0-20.0 [facility] Comment on above: Result Comment: Crit ical Result : Called to and read back by: SHANNON FERREIRA at: 08/20/2022 17:43:14 by:[id number] PERFORMED BY: [place] [address] PATHOLOGIST OIL FIELD EQUIPMENT MECHANIC DREW REAL M.D. Performed By: #### H S TROP #### [address] Troponin I.cardiac [Mass/vol ume] in Serum or Plasma by Detection limit <= 0.01 ng/Ordered By: Cirilo Wise on 08-20-2022 Troponin I.cardiac DL <= 0.01 ng/mL [Mass/Vol] 366.3 pg/mL 0.0-20.0 [facility] Comment on above: Critical Result : Ca lled to and read back by: SHANNON FERREIRA at: 08/20/2022 17:43:14 by:[id number] Urea nitrogen [Mass/volume] in Serum or PlasmaOrdered By: Cirilo Wise on 08-20-2022 Urea nitrogen [Mass/Vol] 15 mg/dL 7-25 [facility] WBC Auto (Bld) [#/Vol]Ordere d By: Cirilo Wise on 08-20-2022 WBC (Bld) [#/Vol] 10.7 10*3/uL 4.1-10.5 [facility] XR chest 1Von 08-20-2022 XR chest 1V [facility] [place] [address] XRay Report Signed Patient: Olaf Briones MR#: [id number] 2 : 1945 Acct:[id number] Age/Sex: 77 / M ADM Date: 08/20/22 Loc: Room: Type: [facility] Attending Dr: Steven Zamora DO Copies to: [...] M.D.08/20/2022 4:50 PM Dictation Location: [place] [address] Transcribed By: TERRI 08/20/22 165 Dictated By: Lucinda Monreal MD 08/20/22 1648 Signed By: 08/20/22 165 [facility] Office Visit (Cardiology)on 06-01-2022 Follow-up visit Diagnoses/Problems [...] Weight Tips; Status:Complete - Retrospective Authorization; Done: [id number] Some eating tips that can help you lose weight.; Status:Complete - Retrospective Authorization; Done: [id number] SocHx: Former smoker Tobacco Use Screening; Status:Complete; Done: [id number] Patient Instructions Please bring all medicines, vitamins, [...] in 1 year. Lab as scheduled with [place] Chief Complaint OLAF BRIONES is being seen [...] negative for complaint. Vitals Vital Signs Recorded: [id number] 10:52AMRecorded: 45Lce4568 10:34AM [id number], LUE, Sitting [id number], LUE, Sitting Heart Rate72, L Radial Height5 ft 6 in Hgeeqw166 lb BMI Zyualukhxq43.73 kg/m2 BSA Calculated1.9 Tobacco Useb) No PHQ-2 #1. Over the last 2 weeks have you felt down, depressed (more content not included)... Normal [employer] XR KUB 1 VIEWon 10-26-2021 XR KUB [...] by: AMNA BALDWIN Date: 2021-10-26 10:33 Normal [facility] Office Visit (Cardiology)on 09-18-2021 Follow-up [...] Recorded: 18Sep2021 10:16AM Heart Rate64, L Radial Akxujtca056, (more content not included)... Normal [employer] Tobacco Screening.on 022 Fall risk assessment a) No falls within the last year [facility]Sandu eduardo 250 DO Work Phone: Tobacco use status [facility]PHS b) No M [facility] HeartCristy de souzay 250 DO Work Phone: IO EKG Electrocardiogram- 12 Leadon 11-24-2020 IO EKG Electrocardiogram- 12 Lead See Scanned Document [facility] HeartCristy de souzay 250 DO Work Phone: Tobacco Screening.on 021 Fall risk assessment a) No falls within the last year [facility] Carter de souzay 250 DO Work Phone: Tobacco use status [facility]PHS b) No M [facility] HeartCristy clark 250 DO Work Phone: Vital Signs Date Time Vital Sign Value Performing Clinician Facility 11-29-2023 09:02-0400 Blood Pressure Location Shanna IVORY [facility] 11-29-2023 09:02-0400 Body temperature 98.6 [degF] Shanna IVORY [facility] 11-29-2023 09:02-0400 Diastolic blood pressure 65 mm[Hg] Shanna IVORY [facility] 11-29-2023 09:02-0400 Heart rate 65 /min Shanna IVORY [facility] 11-29-2023 09:02-0400 Respiratory rate 16 /min Shanna IVORY [facility] 11-29-2023 09:02-0400 Systolic blood pressure 129 mm[Hg] Shanna IVORY [facility] 06-26-2023 15:02-0400 Body height 172.7 cm Ashutosh Ling MD Work Phone: [facility] 06-26-2023 15:02-0400 Body mass index (BMI) [Ratio] 26.15 kg/m2 Ashutosh Ling MD Work Phone: [facility] 06-26-2023 15:02-0400 Body weight 78.02 kg Ashutosh Ling MD Work Phone: [facility] 06-26-2023 15:02-0400 Diastolic blood pressure 68 mm[Hg] Ashutosh Ling MD Work Phone: [facility] 06-26-2023 15:02-0400 Heart rate 60 /min Ashutosh Ling MD Work Phone: [facility] 06-26-2023 15:02-0400 Systolic blood pressure 120 mm[Hg] Ashutosh Ling MD Work Phone: [facility] 01-09-2023 15:38-0500 Body height 172.7 cm Ashutosh Ling MD Work Phone: [facility] 01-09-2023 15:38-0500 Body mass index (BMI) [Ratio] 26.76 kg/m2 Ashutosh Ling MD Work Phone: [facility] 01-09-2023 15:38-0500 Body weight 79.83 kg Ashutosh Ling MD Work Phone: [facility] 01-09-2023 15:38-0500 Diastolic blood pressure 76 mm[Hg] Ashutosh Ling MD Work Phone: [facility] 01-09-2023 15:38-0500 Heart rate 58 /min Ashutosh Ling MD Work Phone: [facility] 01-09-2023 15:38-0500 Systolic blood pressure 142 mm[Hg] Ashutosh Ling MD Work Phone: [facility] 10-29-2022 11:35-0400 Body height 172.72 cm Estella Siddiqui Other [facility] Other 10-29-2022 11:35-0400 Body mass index (BMI) [Ratio] 26.64 kg/m2 Estella Siddiqui Other [facility] Other 10-29-2022 11:35-0400 Body temperature 98.2 [degF] Estella Siddiqui Other [facility] Other 10-29-2022 11:35-0400 Body weight 79.47 kg Estella Siddiqui Other [facility] Other 10-29-2022 11:35-0400 Diastolic blood pressure 76 mm[Hg] Estella Siddiqui Other [facility] Other 10-29-2022 11:35-0400 Respiratory rate 18 /min Estella Siddiqui Other [facility] Other 10-29-2022 11:35-0400 SaO2% (BldA) [Mass fraction] 98 % Estella Siddiqui Other [facility] Other 10-29-2022 11:35-0400 Systolic blood pressure 140 mm[Hg] Estella Siddiqui Other [facility] Other 09-05-2022 13:02-0400 Body height 167.64 cm Nahomi Hernandez Work Phone: [facility]Coreen 250 DO Work Phone: 09-05-2022 13:02-0400 Body mass index (BMI) [Ratio] 27.6 kg/m2 Nahomi Hernandez Work Phone: [facility] 250 DO Work Phone: 09-05-2022 13:02-0400 Body surface area Derived from formula 1.87 m2 Nahomi Hernandez Work Phone: [facility] 250 DO Work Phone: 09-05-2022 13:02-0400 Body weight 77.57 kg Nahomi Hernandez Work Phone: [facility] 250 DO Work Phone: 09-05-2022 13:02-0400 Diastolic blood pressure 54 mm[Hg] Nahomi Hernandez Work Phone: [facility] 250 DO Work Phone: 09-05-2022 13:02-0400 Heart rate 68 /min Nahomi Hernandez Work Phone: [facility] 250 DO Work Phone: 09-05-2022 13:02-0400 Systolic blood pressure 126 mm[Hg] Nahomi Hernandez Work Phone: [facility] 250 DO Work Phone: 08-27-2022 03:30-0400 Diastolic blood pressure 76 mm[Hg] [facility] 08-27-2022 03:30-0400 Heart rate 74 /min [facility] 08-27-2022 03:30-0400 Mean blood pressure 87 mm[Hg] [facility] 08-27-2022 03:30-0400 Respiratory rate 14 /min [facility] 08-27-2022 03:30-0400 SaO2% (BldA) [Mass fraction] 96 % [facility] 08-27-2022 03:30-0400 Systolic blood pressure 110 mm[Hg] [facility] 08-27-2022 03:00-0400 Diastolic blood pressure 80 mm[Hg] [facility] 08-27-2022 03:00-0400 Heart rate 80 /min [facility] 08-27-2022 03:00-0400 Mean blood pressure 97 mm[Hg] [facility] 08-27-2022 03:00-0400 Respiratory rate 15 /min [facility] 08-27-2022 02:30-0400 Diastolic blood pressure 73 mm[Hg] [facility] 08-27-2022 02:30-0400 Heart rate 96 /min [facility] 08-27-2022 02:30-0400 Mean blood pressure 92 mm[Hg] [facility] 08-27-2022 02:30-0400 Respiratory rate 20 /min [facility] 08-27-2022 02:30-0400 SaO2% (BldA) [Mass fraction] 98 % [facility] 08-27-2022 02:30-0400 Systolic blood pressure 130 mm[Hg] [facility] 08-26-2022 19:17-0400 Respiratory rate 18 /min [facility] 08-26-2022 18:11-0400 Respiratory rate 18 /min [facility] 08-26-2022 17:07-0400 Body temperature 97.7 [degF] [facility] 08-26-2022 17:07-0400 Heart rate 83 /min [facility] 08-26-2022 17:07-0400 Respiratory rate 18 /min [facility] 08-22-2022 15:50-0400 Body temperature 98.2 [degF] [facility] 08-22-2022 15:50-0400 Diastolic blood pressure 64 mm[Hg] [facility] 08-22-2022 15:50-0400 Heart rate 64 /min [facility] 08-22-2022 15:50-0400 Respiratory rate 18 /min [facility] 08-22-2022 15:50-0400 SaO2% (BldA) [Mass fraction] 99 % [facility] 08-22-2022 15:50-0400 Systolic blood pressure 124 mm[Hg] [facility] 08-22-2022 05:48-0400 Body weight 81 kg [facility] 08-21-2022 10:27-0400 70 1 Jame Barraza Work Phone: [facility] 250 DO Work Phone: Comment on above: [id number] 08-20-2022 18:32-0400 Body height 172.72 cm [facility] 08-20-2022 17:13-0400 Heart rate 42 /min [facility] 08-20-2022 16:38-0400 Diastolic blood pressure 60 mm[Hg] [facility] 08-20-2022 16:38-0400 Respiratory rate 18 /min [facility] 08-20-2022 16:38-0400 SaO2% (BldA) [Mass fraction] 98 % [facility] 08-20-2022 16:38-0400 Systolic blood pressure 123 mm[Hg] [facility] 08-20-2022 16:25-0400 Body height 172.72 cm [facility] 08-20-2022 16:25-0400 Body temperature 97.6 [degF] [facility] 08-20-2022 16:25-0400 Body weight 81.5 kg [facility] 10-27-2021 08:55-0400 Blood Pressure Location Shanna IVORY [facility] 10-27-2021 08:55-0400 Diastolic blood pressure 76 mm[Hg] Shanna IVORY [facility] 10-27-2021 08:55-0400 Heart rate 64 /min Shanna IVORY [facility] 10-27-2021 08:55-0400 Respiratory rate 16 /min Shanna IVORY [facility] 10-27-2021 08:55-0400 Systolic blood pressure 125 mm[Hg] Shanna IVORY [facility] 03-07-2021 15:22-0500 Diastolic blood pressure 78 mm[Hg] Jame Barraza Work Phone: [facility] 250 DO Work Phone: 03-07-2021 15:22-0500 Systolic blood pressure 139 mm[Hg] Jame Barraza Work Phone: [facility] 250 DO Work Phone: 03-07-2021 14:47-0500 Body height 167.64 cm Jame Barraza Work Phone: [facility] 250 DO Work Phone: 03-07-2021 14:47-0500 Body mass index (BMI) [Ratio] 28.73 kg/m2 Jame Barraza Work Phone: [facility] 250 DO Work Phone: 03-07-2021 14:47-0500 Body surface area Derived from formula 1.9 m2 Jame Barraza Work Phone: [facility] 250 DO Work Phone: 03-07-2021 14:47-0500 Body weight 80.74 kg Jame Barraza Work Phone: [facility] 250 DO Work Phone: 03-07-2021 14:47-0500 Diastolic blood pressure 82 mm[Hg] Jame Barraza Work Phone: [facility] 250 DO Work Phone: 03-07-2021 14:47-0500 Heart rate 84 /min Jame Bowers Christi Work Phone: [facility] 250 DO Work Phone: 03-07-2021 14:47-0500 Systolic blood pressure 172 mm[Hg] Jame [place] Work Phone: [facility] 250 DO Work Phone: 11-24-2020 08:51-0400 Body height 167.64 cm Jame [place]i Work Phone: [facility] 250 DO Work Phone: 11-24-2020 08:51-0400 Body mass index (BMI) [Ratio] 28.08 kg/m2 Jame Elissa Barraza Work Phone: [facility] 250 DO Work Phone: 11-24-2020 08:51-0400 Body surface area Derived from formula 1.89 m2 Jame [place]i Work Phone: [facility] 250 DO Work Phone: 11-24-2020 08:51-0400 Body weight 78.93 kg Jame Musaight Work Phone: [facility] 250 DO Work Phone: 11-24-2020 08:51-0400 Diastolic blood pressure 82 mm[Hg] Jame Musaight Work Phone: [facility] 250 DO Work Phone: 11-24-2020 08:51-0400 Diastolic blood pressure 80 mm[Hg] Jame Musaight Work Phone: [facility] 250 DO Work Phone: 11-24-2020 08:51-0400 Heart rate 66 /min Jame Barraza Work Phone: [facility] 250 DO Work Phone: 11-24-2020 08:51-0400 Systolic blood pressure 136 mm[Hg] Jame Barraza Work Phone: [facility] 250 DO Work Phone: 11-24-2020 08:51-0400 Systolic blood pressure 138 mm[Hg] Jame Barraza Work Phone: [facility] 250 DO Work Phone: Encounters Encounter Date Encounter Type Care Provider Facility Start: 03-27-2024 ambulatory Shanna Yousif ty:[facility] Start: 11-29-2023 End: 11-29-2023 ambulatory Shanna IVORY Facility:[facility] Start: 11-29-2023 End: 11-29-2023 Patient encounter procedure Shanna IVORY [facility] Start: 07-22-2023 End: 07-22-2023 ambulatory Alonzo Briscoe MD Facility:[facility] Start: 06-26-2023 End: 06-26-2023 ambulatory [facility] Start: 06-26-2023 End: 06-26-2023 Office outpatient visit 25 minutes Ashutosh Ling MD Work Phone: [facility] Comment on above: Essential hypertensi on (Primary [...] 02-04-2023 End: 02-04-2023 ambulatory Alonzo Briscoe MD Facility:[facility] Start: 01-09-2023 End: 01-09-2023 [facility] Start: 01-09-2023 End: 01-09-2023 Office outpatient visit 25 minutes Ashutosh Ling MD Work Phone: [facility] Comment on above: Arteriosclerotic car diovascular disease (Primary Dx); Abnormal EKG; Mixed hyperlipidemia; Primary hypertension; Post PTCA; Essential hypertension; BMI 26.0-26.9,adult; Easy bruisability Start: 10-29-2022 End: 10-29-2022 ambulatory Estella Siddiqui Other [facility] HERMEL DELOR Other Start: 10-29-2022 Office outpatient ne w 10 minutes Estella Siddiqui [facility] Start: 10-01-2022 Rx Renewal Nahomi Hernandez Work Phone: [facility] 250 DO Work Phone: Start: 09-14-2022 Rx Renewal Nahomi Hernandez Work Phone: [facility] 250 DO Work Phone: Start: 09-06-2022 Telephone encounter [facility] Comment on above: Patient Update Start: 09-05-2022 Office outpatient vi sit 25 minutes Nahomi Hernandez Work Phone: [facility] 250 DO Work Phone: Start: 09-05-2022 Patient encounter [facility] Work Phone: Start: 09-05-[address] Ashutosh Ling Facility: Start: 09-05-2022 End: 09-05-2022 Patient encounter procedure Alexandre KOROMA [facility] Start: 09-04-2022 Telephone encounter Deborah Ibarra RN NOC Comment on above: Follow Up Phone Call (All Clear) Start: 08-27-2022 End: 08-31-2022 Evaluation and management of inpatient DAVID ANDREWS Facility:[facility] Start: 08-26-2022 End: 08-27-2022 Emergency department patient visit Keith Panchal [facility] Start: 08-24-2022 Chart Update Jame Barraza Work Phone: [facility] 250 DO Work Phone: Start: 08-22-[address] Jame Barraza Facility:[id number] Start: 08-21-[address] Jame Barraza Facility:[id number] Start: 08-20-2022 End: 08-22-2022 Evaluation and management of inpatient Steven Zamora Facility:[facility] Start: 08-20-2022 End: 08-22-2022 Evaluation and management of inpatient [facility] Work Phone: Start: 08-20-2022 Admission to [facility]-Clinical Rn Liaison Work Phone: Start: 08-20-2022 ambulatory NON STAFF [facility] Work Phone: Start: 08-20-[address] Bne Zamora Facility:[id number] Start: 08-20-[address] Jame Barraza Facility:[id number] Start: 06-01-[address] Nahomi Hernandez Facility: Start: 10-27-2021 End: 10-27-2021 Patient encounter procedure Shanna IVORY [facility] Start: 10-26-2021 End: 10-27-[address] SHANNA IVORY Facility:H1 Start: 05-04-2021 ambulatory DOMINGUEZ GUTIERREZ Faci lity:H1 Start: 03-07-2021 Office outpatient vi sit 25 minutes Jame Barraza Work Phone: [facility] 250 DO Work Phone: Start: 11-29-2020 Chart Update Jame Barraza Work Phone: [facility] 250 DO Work Phone: Start: 11-28-2020 Patient encounter procedure Jame Barraza Work Phone: [facility] 250[address] [place] Work Phone: Start: 11-24-2020 AUDIT Jame Barraza Work Phone: [facility] 250 DO Work Phone: Procedures Date Procedure Procedure Detail Performing Clinician Start: 06-26-2023 FOLLOW UP IN CARDIOLOGY ASHUTOSH LING Start: 08-30-2022 Antibody screen DAVID PEREZ Comment on above: Order Comment: Speci men Type: BLOOD SPECIMENOrdering Facility: [facility] Address: [address] [place] [address] Performed By: #### T SCR ####CC MAIN BLOOD BANKCLIA [id number] [facility] [id number] [place] [address] [place] Start: 08-29-2022 Cysto w/irrig & evac multple obstructing clots Shanna IVORY Start: 08-29-2022 Trurl rescj residual/regrowth obstr prstate tiss Shanna IVORY Start: 08-27-2022 Antibody screen DAVID PEREZ Comment on above: Order Comment: Speci men Type: BLOOD SPECIMENOrdering Facility: [facility] Address: [address] [place] [address] Performed By: #### T SCR ####CC MAIN BLOOD BANKCLIA [id number] [employer] [place] [id number], [place] [address] [place] Start: 08-20-2022 CL [...] DTaP/Tdap/Td Vaccines (2 - Td or Tdap) [facility] Start: 03-27-2031 Urine microalbumin profile DTAP,TDAP,TD (2 - Td or Tdap) [facility] Start: 03-13-2024 End: 03-13-2024 Patient encounter procedure 03/13/2024 11:20 AM EST Office Visit [address] [phone] Ashutosh Ling MD [address] [facility] [address] [place] [address] [facility] Start: 06-26-2023 End: 06-26-2023 Patient encounter procedure 06/26/2023 3:10 PM EDT Office Visit [facility] [address] [facility] [place] [address] [place] [phone] Ashutosh Ling MD [facility] [facility] [address] [place] [address] [facility] Start: 06-07-2023 FUV, Provider: Ashutosh Ling, Status: Pen, Time: 11:20 AM FUV, Provider: Ashutosh Ling, Status: Pen, Time: 11:20 AM [facility] DO Work Phone: Start: 01-09-2023 FUV, Provider: Ashutosh Ling, Status: Pen, Time: 3:30 PM FUV, Provider: Ashutosh Ling, Status: Pen, Time: 3:30 PM [facility] 250 DO Work Phone: Start: 10-19-2022 COVID-19 Vaccine ( season) COVID-19 Vaccine ( season) [facility] Start: 10-19-2022 Influenza vaccination INFLUENZA (#1) [facility] Start: 09-05-2022 FUV, Provider: Ashutosh Ling, Status: Pen, Time: 12:50 PM FUV, Provider: Ashutosh Ling, Status: Pen, Time: 12:50 PM [facility] Work Phone: Start: 08-22-2022 [facility] Start: 08-20-2022 Consultation [facility] Start: 08-20-2022 Referral to cardiac rehabilitation program [facility] Start: 08-20-2022 [facility] Start: 08-20-2022 End: 08-20-2022 Hospital admission [facility] Start: 02-18-2022 ADVANCE DIRECTIVE DISCUSSION ADVANCE DIRECTIVE DISCUSSION [facility] Start: 02-18-2022 DEPRESSION ASSESSMENT DEPRESSION ASSESSMENT [facility] Start: 08-30-2021 FUV, Provider: Ashutosh Ling, Status: Pen, Time: 2:30 PM FUV, Provider: Ashutosh Ling, Status: Pen, Time: 2:30 PM -[facility] 250 DO Work Phone: Start: 04-03-2021 COVID-19 VACCINE (4 - Pfizer series) COVID-19 VACCINE (4 - Pfizer series) [facility] Start: 03-07-2021 FUV, Provider: Ashutosh Ling, Status: Pen, Time: 2:50 PM FUV, Provider: Ashutosh Ling, Status: Pen, Time: 2:50 PM -[facility] 250 DO Work Phone: Start: 11-28-2020 EVENT ELIEZER, Provider: FADUMO BENSON STONEWORK SUPERVISOR 1,[id number], Status: Pen, Time: 10:30 AM EVENT ELIEZER, Provider: FADUMO BENSON STONEWORK SUPERVISOR 1,[id number], Status: Pen, Time: 10:30 AM [facility] 250 DO Work Phone: Start: 2005 RSV patients and/or patients aged 60+ years (1 - 1-dose 60+ series) RSV patients and/or patients aged 60+ years (1 - 1-dose 60+ series) [facility] Start: 06-18-1995 SHINGRIX VACCINE (1 of 2) SHINGRIX VACCINE (1 of 2) [facility] Start: 06-18-1995 Zoster Vaccines (1 of 2) Zoster Vaccines (1 of 2) [facility] Start: 06-18-1963 ANNUAL PCP TEAM CHRONIC DISEASE VISIT ANNUAL PCP TEAM CHRONIC DISEASE VISIT [facility] Start: 06-18-1963 BP CONTROLLED (<130/80) BP CONTROLLED (<130/80) [facility] Start: 06-18-1963 Diabetes mellitus screening Diabetes Screening [facility] Start: 06-18-1963 Hepatitis B surface antibody level LDL CHOLESTEROL [facility] Start: 06-18-1963 HEPATITIS C SCREENING HEPATITIS C SCREENING [facility] Start: 06-18-1963 Hepatitis C screening Hepatitis C Screening [facility] Start: 06-18-1955 3 comp foot exam completed DIABETIC FOOT EXAM [facility] Start: 06-18-1955 Hepatitis B screening URINE ALBUMIN:CREATININE RATIO [facility] Start: 06-18-1955 Hepatitis C antibody, confirmatory test DILATED RETINAL EXAM [facility] Start: 1950 Hemoglobin A1c/Hemoglobin.total in Blood HBA1C [facility] Start: 1945 Lipid panel Lipid Panel [facility] Start: 1945 Medicare Annual Wellness Visit Medicare Annual Wellness Visit (AWV) [facility] Patient Education Coronary Angio plasty (DC) Coronary Stenting (DC) Angina (DC) Chest Pain (DC) Drug Eluting Stents [facility] Work Phone: Patient referral [facility] Work Phone: Immunizations Immunization Date Immunization Notes Care Provider Fa [facility] 11-19-2022 influenza virus vaccine, unspecified formulation Shanna IVORY [facility] 02-18-2022 influenza nasal, unspecified formulation Deborah Ibarra RN [facility] 12-26-2021 Fluad Quadrivalent 0 .5 ML Intramuscular Prefilled Syringe Jame Barraza Work Phone: [facility] 12-26-2021 influenza virus vaccine, unspecified formulation Shanna IVORY [facility] 12-26-2021 influenza, high dose seasonal, preservative-free Ashutosh Ling MD Work Phone: [facility] Work Phone: 03-27-2021 tetanus toxoid, redu shruti diphtheria toxoid, and acellular pertussis vaccine, adsorbed Deborah Ibarra RN [facility] 02-06-2021 Pfizer-BioNTech COVID-19 Vacc 30 MCG/0.3ML Intramuscular Suspension Jame Barraza Work Phone: [facility] 11-18-2020 influenza nasal, unspecified formulation Deborah Ibarra RN [facility] 11-10-2020 Fluad Quadrivalent 0 .5 ML Intramuscular Prefilled Syringe Jame Barraza Work Phone: [facility] 11-10-2020 influenza virus vaccine, unspecified formulation Shanna IVORY [facility] 04-12-2020 Pfizer-BioNTech COVID-19 Vacc 30 MCG/0.3ML Intramuscular Suspension Jame Barraza Work Phone: [facility] Comment on above: Result Comment: 2022: TPV70 03-28-2020 COVID-19 original vaccine, age 12+ yr, monovalent (PFIZER-BIONTECH - PURPLE TOP) Deborah Ibarra RN [facility] 03-22-2020 Pfizer-BioNTech COVID-19 Vacc 30 MCG/0.3ML Intramuscular Suspension Jame Barraza Work Phone: [facility] Comment on above: Result Comment: 2022: TPV70 03-21-2020 SARS-CoV-2 (COVID-19 ) Ad26 vaccine, recombinant Shanna IVORY [facility] Comment on above: Result Comment: unab le to give exact dates 12-16-2019 influenza (HD-IIV4) vaccine, age 65+ yr, high dose, quadrivalent, PF (FLUZONE HIGH-DOSE) Deborah Ibarra RN [facility] 12-16-2018 AS03 adjuvant Deborah Ibarra [facility] 12-24-2017 AS03 adjuvant Deborah Ibarra RN [facility] 12-21-2016 influenza, high dose seasonal, preservative-free Deborah Ibarra RN [facility] 02-19-2016 pneumococcal polysaccharide vaccine, 23 valent Jame Barraza Work Phone: [facility] Comment on above: Series: 11-23-2015 influenza virus vaccine, unspecified formulation Shanna IVORY [facility] 11-23-2015 influenza, high dose seasonal, preservative-free Jame Elissa Barraza Work Phone: [facility] 10-20-2015 influenza nasal, unspecified formulation Deborah Ibarra RN [facility] 11-06-2014 influenza nasal, unspecified formulation Deborah Ibarra RN [facility] 11-06-2014 pneumococcal conjuga te vaccine, 13 valent Deborah Ibarra RN [facility] Payers Date Payer Category Payer Self-pay 2022 Medicare [id number] 2022 Medicare [id number] 1959 Medicare [id number] 1959 Private Health Insurance CAP [id number] 1945 Unknown [id number] 1945 Unknown [id number] 2.840.1.360643.3.579.2.593 1945 Unknown [id number] 2.840.1.463401.3.579.2.356 1945 Unknown [id number] 2.840.1.766789.3.579.2.356 1945 Unknown [id number] 2.16840.1.362103.3.579.2.356 1945 Unknown [id number] 2.16840.1.090931.3.579.2.356 1945 Unknown [id number] 2.840.1.071519.3.579.2.356 1945 Unknown [id number] 2.16.840.1.526833.3.579.2.356 1945 Unknown [id number] 2.16.840.1.297557.3.579.2.1259 1945 Unknown [id number] 2.16.840.1.449971.3.579.2.1259 1945 Unknown [id number] 2.16.840.1.876491.3.579.2.1259 1945 Unknown [id number] 2.16.840.1.307952.3.579.2.1244 1945 Unknown [id number] 2.16.840.1.130006.3.579.2.1244 1945 Unknown [id number] 2.16.840.1.078612.3.579.2.196 1945 Unknown [id number] 2.16.840.1.843275.3.579.2.196 1945 Unknown [id number] 2.16.840.1.491382.3.579.2.196 1945 Unknown [id number] 2.16.840.1.524386.3.579.2.196 1945 Unknown [id number] 2.16.840.1.535111.3.579.2.727 1945 Unknown [id number] 2.16.840.1.574373.3.579.2.727 Private Health Insurance [facility] [id number] Unknown Unknown [id number] [id number]1 Social History Date Type Detail Facility Start: 01-08-2023 End: 01-09-2023 No alcohol use No alcohol use [place] [address] DO Work Phone: Comment on above: 1 cup of coffee edelmira y; former cigar smoker; Start: 10-21-2020 End: 11-29-2023 Tobacco smoking status Never smoked tobacco (finding) [facility] Start: 01-08-2023 End: 01-09-2023 Sex Assigned At Male [facility] Start: 1945 Sex Assigned At Male F [facility] Tobacco smoking status [facility] Tobacco smoking consumption unknown [facility] Start: 1945 Sex Assigned At Not on file [facility] Start: 01-08-2023 Tobacco smoking status NHIS Ex-smoker [facility] Work Phone: History of tobacco use Current smoker [facility] Work Phone: History of tobacco use Cigar Smoker [facility] Work Phone: Start: 01-08-2023 End: 06-26-2023 Tobacco use and exposure Smokeless tobacco non-user [facility] Work Phone: Start: 01-09-2023 End: 06-26-2023 Alcohol intake Ex-drinker (finding) [facility] Work Phone: Start: 12-30-2022 End: 06-26-2023 Exposure to SARS-CoV-2 (event) Not sure [facility] Tobacco smoking status Never [facility] Medical Equipment Procedure Code Equipment Code Equipment Origin al Text Equipment Identifier Dates CL STENT BISHOP FRONTIER 3.0 X 26 FDA Start: 08-20-2022 Femoral artery closure plug/patch, synthetic polymer ([id number] FDA Start: 08-20-2022 Goals Date Patient Goal Desired Activity /State Functional Status Date Assessment Result Facility 11-29-2023 Functional Status N/A [facility] 08-26-2022 Functional Status N/A [facility] 08-22-2022 Functional status Patient at Baseline [facility] Work Phone: 10-27-2021 Functional Status N/A [facility] Mental Status Date Assessment Result Facility 08-22-2022 Cognitive function Cognitive Sta tus Patient at Baseline [facility] Work Phone: Clinical Notes 10-27-2021 to [...] you may eat and drink normally. Take qlrz-uyt-ezfefmy and prescription medicines only as told by your health care provider. Let your health care provider know about any medicines that you are taking, including xxuk-uxr-bsxjiwj medicines, vitamins, herbs, and supplements. Choose a [...] provider. Document Revised: 08/11/2021 Document Reviewed: 08/11/2021 [employer] Patient Education 2023 [employer] 11/29/2023 09:40:32 Laser Therapy for Kidney [...] including vitamins, herbs, eye drops, creams, and lfpx-guk-cmmozeq medicines. Any problems you or family members [...] unless your provider tells you to. ?Taking ucwb-odj-jydrbai medicines, vitamins, herbs, and supplements. Tests You [...] provider. Document Revised: 10/05/2022 Document Reviewed: 10/05/2022 [employer] Patient Education 2023 [employer]. Follow Up Care 11/26/2022 14:10:52 With:CACHORRO HAHN, Shanna Sánchez, URL Address: [facility] [address] [place] [address]- When: Unknown [facility] 11-29-2023 Note Patient Education Nephrology Laser [...] including vitamins, herbs, eye drops, creams, and krlk-gyj-lnaheoy medicines. ? Any problems you or family [...] your provider tells you to. ? Taking xtsw-ndj-ohegayk medicines, vitamins, herbs, and supplements. Tests ? [...] strainer to col (more content not included)... [facility] 06-26-2023 History of Present illness Narrative Subjective [...] his lab work is done through the [place] system Review of Systems Cardiovascular: Positive for [...] discussion and plan. documented in this encounter [facility] Work Phone: 06-26-2023 Instructions Mandy Munoz [...] two times daily documented in this encounter [facility] Work Phone: 01-09-2023 History of Present [...] 8. Easy bruisability documented in this encounter [facility] Work Phone: 01-09-2023 Instructions Travis Peter [...] of your visit. documented in this encounter [facility] Work Phone: 10-29-2022 Evaluation note Encounter Date Diagnosis Assessment Notes Oct, Impacted cerumen of both ears (ICD-10 - H61.23) Cerumen impaction home care material was printed Drink plenty fluids, get plenty of rest. Continue home medications as prescribed. Follow-up with your family physician for any further concerns [facility] Other 07-20-2023 Miscellaneous Notes* Telephone Encounter - [...] called in. The pharmacy is not at [facility]. I will need to call them when its done. Dr Koroma is asking why he is on flomax? Please advise. [facility] Miscellaneous Notes* Telephone Encounter - Deborah Ibarra RN - 09/04/2022 12:51 PM EDT PATIENT INFORMATION Record ID: [id number] Patient Name: [facility]: [facility]: [facility] [place] Attending: David Andrews Center: Urology INSTRUCTIONS SN to remind patient of appointment date, time, location All Clear All Clear SURVEY INFORMATION Medical/Nurse Cloth Dyeing Range Tender: Deborah Ibarra 1. Your discharge instructions are [...] symptoms? (Standard Question) No documented in this [facility]-2023 NoteHNO ID: [id number] Author: Kathrin Dickerson RN Service: Care Management [...] Primary Care Physician Name/Phone: Jame Barraza MD [phone] Patient is medically stable for discharge, on RA, no dc needs. IMM provided on 08/30 by previous CM. Patients to discharge home. SIGNATURE: Kathrin Dickerson RN PATIENT NAME: Olaf Briones DATE: August 31, 2022 TIME: 9:40 AM CONTACT #: [phone] Note HNO ID: [id number] Author: Danyell Morris MD Service: Critical Care Author Type: Anesthesiologist Type: Progress Notes Filed: 08/31/2022 2:15 PM Note Text: SERVICE DATE: 08/31/2022 SERVICE TIME: 8:54 AM SURGICAL INTENSIVE CARE UNIT PROGRESS NOTE BRIEF HPI: Olaf Briones is a 77 year old male with PMHx of recent STEMI on 08/20/22 (s/p JUHI),HTN, HLD, DM, nephrolithiasis, transferred from [facility] for gross hematuria. He is now [...] Primary and SICU discussed patient transfer to [facility]. 08/30:no acute events. Hemodynamically stable. 08/31: No acute events. HDS. Patient is doing well and ready for transfer/discharge per Urology. Subjective INTERVAL EVENTS: Improved Objective MEDICATIONS: Current medications and allergies reviewed. Recommended/planned medication changes discussed in detail in the A/P section below. Please refer to [facility] for list of inpatient medications. VITAL [...] aspirin and ticagrelor Coronary artery disease involving sycuan coronary artery of sycuan heart Assessment: STEMI on 08/19/2022 s/p JUHI [...] Antiplatelet Medications (From admiss (more content not included)...[facility] NoteHNO ID: [id number] Author: Prema Feliz MD Service: Urology Author Type: Resident Type: Progress Notes Filed: 08/31/2022 6:45 AM Note Text: [facility] UROLOGY PROGRESS NOTE Name: Olaf Briones Bed: H050 013/H050-13 Date: 08/31/2022 After Hours [facility] Urology Service Pager: [phone] ASSESSMENT AND PLAN Olaf Briones is a 77 year old male with PMHx of HTN, HLD, DM, recent STEMI (s/p JUHI, on Brillinta and ASA), nephrolithiasis s/p ESWL , BPH s/p TURP 2001, transferred from [facility] for gross hematuria. Currently with 18Fr 3-way catheter on CBI. Now 3 Days Post-Op s/p cystoscopy, clot evacuation, cystolitholapaxy, TURP. Admitted to SICU postoperatively due to pressor requirements and risk of hyponatremia due to length of TURP. 22Fr [address] hernandez placed introp, on traction and CBI. Transferred to [facility] 08/30. Interval: - AFVSS - Doing [...] order flomax for home. Active Problems Prior [place] POA: Yes - placed on ASA 81, ticagrelor 90 mg BID Nephrolithiasis POA: Yes - Monitor HLD POA: Yes - Home atorva 80 mg DM POA: Yes - SSI HTN POA: Yes - amlodipine 5mg daily, carvedilol 6.25 BID, lisinopril 2.5 mg daily Prema Feliz MD PGY-2 Resident Physician Urology Pager: [phone] For weekend or after hours issues [place] [phone] SUBJECTIVE See above Objective OBJECTIVE Vital Signs BP 114/56 Pulse 61 Temp 36.9 ?C (98.4 ?F) (Oral) Resp 15 Ht 173 cm (5' 8.11 ) Wt 77.9 kg (171 lb 11.8 oz) SpO2 95% BMI 26.03 kg/m? Input and Output Intake/Output Summary (Last 24 hours) at 08/31/2022 0645 Last data filed at 08/31/2022 0600 Gross per 24 hour Intake 6174.7 ml Output 61691 ml Net -5325.3 ml Physical Exam GEN: [...] Feliz MD PGY-2 Resident Physician Urology Pager: [phone] For weekend or after hours issues please page the [place]rology [place] [phone]-2023 NoteHNO ID: [id number] Author: Danyell Morris MD Service: Critical Care Author Type: Anesthesiologist Type: Progress Notes Filed: 08/30/2022 3:36 PM Note Text: SERVICE DATE: 08/30/2022 SERVICE TIME: 3:25 PM SURGICAL INTENSIVE CARE UNIT PROGRESS NOTE BRIEF HPI: Olaf Briones is a 77 year old male with PMHx of recent STEMI on 08/20/22 (s/p JUHI),HTN, HLD, DM, nephrolithiasis, transferred from [facility] for gross hematuria. He is now [...] Primary and SICU discussed patient transfer to [facility]. 08/30:no acute events. Hemodynamically stable. Subjective INTERVAL EVENTS: hemodynamically stable. Objective MEDICATIONS: Current medications and allergies reviewed. Recommended/planned medication changes discussed in detail in the A/P section below. Please refer to [facility] for list of inpatient medications. VITAL SIGNS: [...] Is Patient Clinically Ready to Transfer to [facility] or SDU?: Yes, transfer to SDU or [facility] today Discharge Planning: To be determined [...] aspirin and ticagrelor Coronary artery disease involving sycuan coronary artery of sycuan heart Assessment: STEMI on 08/19/2022 s/p JUHI [...] Prophylaxis/Anticoagulants Anticoagulant AND Antiplatel (more content not included)...[facility]23 NoteHNO ID: [id number] Author: Prema Feliz MD Service: Urology Author Type: Resident Type: Progress Notes Filed: 08/30/2022 7:12 AM Note Text: [facility] UROLOGY PROGRESS NOTE Name: Olaf Briones Bed: H050 013/H050-13 Date: 08/30/2022 After Hours [facility] Urology Service Pager: [phone] ASSESSMENT AND PLAN Olaf Briones is a 77 year old male with PMHx of HTN, HLD, DM, recent STEMI (s/p JUHI, on Brillinta and ASA), nephrolithiasis s/p ESWL , BPH s/p TURP 2001, transferred from [facility] for gross hematuria. Currently with 18Fr 3-way catheter on CBI. Now 2 Days Post-Op s/p cystoscopy, clot evacuation, cystolitholapaxy, TURP. Admitted to SICU postoperatively due to pressor requirements and risk of hyponatremia due to length of TURP. 22Fr [address] hernandez placed introp, on traction and CBI. Awaiting bed on [facility]. Interval: - Afebrile, SBPs 110s - [...] discharge today vs tomorrow Active Problems Prior [place] POA: Yes - placed on ASA 81, ticagrelor 90 mg BID Nephrolithiasis POA: Yes - Monitor HLD POA: Yes - Home atorva 80 mg DM POA: Yes - SSI HTN POA: Yes - amlodipine 5mg daily, carvedilol 6.25 BID, lisinopril 2.5 mg daily Prema Feliz MD PGY-2 Resident Physician Urology Pager: [phone] For weekend or after hours issues [place] [phone] SUBJECTIVE See above Objective OBJECTIVE Vital Signs BP 111/56 Pulse 61 Temp 36.7 ?C (98.1 ?F) (Axillary) Resp 12 Ht 173 cm (5' 8.11 ) Wt 84 kg (185 lb 3 oz) SpO2 96% BMI 28.07 kg/m? Input and Output Intake/Output Summary (Last 24 hours) at 08/30/2022 0558 Last data filed at 08/30/2022 0500 Gross per 24 hour Intake 6400 ml Output 65860 ml Net -4150 ml Physical Exam GEN: [...] Feliz MD PGY-2 Resident Physician Urology Pager: [phone] For weekend or after hours issues please page the [place] [phone]23 NoteHNO ID: [id number] Author: Ary Frazier RN Service: Care Management [...] oxygen, or cpaps at home. Had recent FL in past. Cardiology on consult. No current [...] 29, 2022 TIME: 12:11 PM PAGER/CONTACT #: [phone]07-12-2023 NoteHNO ID: [id number] Author: Danyell Morris MD Service: Critical Care Author Type: Anesthesiologist Type: Progress Notes Filed: 08/29/2022 3:08 PM Note Text: SERVICE DATE: 08/29/2022 SERVICE TIME: 11:28 AM SURGICAL INTENSIVE CARE UNIT PROGRESS NOTE BRIEF HPI: Olaf Briones is a 77 year old male with PMHx of recent STEMI on 08/20/22 (s/p JUHI),HTN, HLD, DM, nephrolithiasis, transferred from [facility] for gross hematuria. He is now [...] Primary and SICU discussed patient transfer to [facility]. Subjective INTERVAL EVENTS: Improved Objective MEDICATIONS: Current medications and allergies reviewed. Recommended/planned medication changes discussed in detail in the A/P section below. Please refer to [employer] for list of inpatient medications. VITAL SIGNS: [...] Is Patient Clinically Ready to Transfer to [facility] or SDU?: Yes, transfer to SDU or [facility] today Discharge Planning: To be determined [...] aspirin and ticagrelor Coronary artery disease involving sycuan coronary artery of sycuan heart Assessment: STEMI on 08/19/2022 s/p JUHI [...] Urology AND SICU ok for transfer to [facility] Medication and Non-Pharmacologic VTE Prophylaxis/Anticoagulants Anticoagulant AND Antiplatelet Medica (more content not included)...[facility]07-12-2023 NoteHNO ID: [id number] Author: David Andrews MD Service: Urology Author Type: Physician Type: Progress Notes Filed: 08/29/2022 7:09 PM Note Text: [facility] UROLOGY PROGRESS NOTE Name: Olaf Briones Bed: H050 013/H050-13 Date: 08/29/2022 After Hours [facility] Urology Service Pager: [phone] ASSESSMENT AND PLAN Olaf Briones is a 77 year old male with PMHx of HTN, HLD, DM, recent STEMI (s/p JUHI, on Brillinta and ASA), nephrolithiasis s/p ESWL remote, BPH s/p TURP 2001, transferred from [facility] for gross hematuria. Currently with 18Fr [...] EF 55% -Encourage IS -Continue telemetry on [facility] #GI - -Diet: Regular diet -Colace, [...] - routine #Disposition - pending course, to [facility] today if SICU agrees it is appropriate. Plan for discharge tomorrow. Active Problems Prior FL POA: Yes - placed on ASA 81, ticagrelor 90 mg BID Nephrolithiasis POA: Yes - Monitor HLD POA: Yes - Home atorva 80 mg DM POA: Yes - SSI HTN POA: Yes - amlodipine 5mg daily, carvedilol 6.25 BID, lisinopril 2.5 mg daily Prema Feliz MD PGY-2 Resident Physician Urology Pager: [phone] For weekend or after hours issues [place] [phone] CHIEF RESIDENT ADDENDUM POD#1 s/p cysto, TURP, [...] 08/29/2022 0700 Gross per 24 hour Intake 16504.5 ml Output 34036 ml Net 5853.5 ml Gen: No apparent [...] recs Gt Mcgowan MD Resident PGY-6 Urology [facility] [place] [facility] Please page Dr. Feliz with any [...] 08/29/2022 0700 Gross per 24 hour Intake 16135.5 ml Output 78554 ml Net 5853.5 ml Physical Exam GEN: [...] Feliz MD PGY-2 Resident Physician Urology Pager: [phone] For weekend or after hours issues [place] [phone] [facility] STAFF PHYSICIAN NOTE OF PERSONAL INVOLVEMENT IN CARE I have reviewed the progress note obtained and documented by the resident (more content not included)...[facility]07-11-2023 NoteHNO ID: [id number] Author: Molly Rosado APRN.JIGGER CROWN POUNCING MACHINE OPERATOR Service: ? Author Type: Nurse Employment Consultant Type: Anesthesia Procedure Notes Filed: 08/28/2022 7:27 PM Note Text: ANESTHESIOLOGY PROCEDURE NOTE PIV General Information Procedure Start Time/Medication Administration: 08/28/2022 7:26 PM Staffing JIGGER CROWN POUNCING MACHINE OPERATOR: Molly Rosado APRN.CRNA Preparation Sterility Preparation: hand [...] August 28, 2022 TIME: 7:26 PM CSN: [id number] Hospital07-11-2023 NoteHNO ID: [id number] Author: Molly Rosado APRN.JIGGER CROWN POUNCING MACHINE OPERATOR Service: ? Author Type: Nurse Employment Consultant Type: Anesthesia Procedure Notes Filed: 08/28/2022 6:31 PM Note Text: ANESTHESIOLOGY PROCEDURE NOTE Airway General Information Procedure Start Time/Medication Administration: 08/28/2022 6:10 PM Patient location during procedure: OR Timeout Performed Pre-procedure: timeout performed Consent Obtained: Yes Patient identity confirmed: arm band and patient Staffing JIGGER CROWN POUNCING MACHINE OPERATOR: Molly Rosado APRN.CRNA Indications and Patient Condition [...] August 28, 2022 TIME: 6:31 PM CSN: [id number] Hospital07-11-2023 NoteHNO ID: [id number] Author: Prema Feliz MD Service: Urology Author Type: Resident Type: Progress Notes Filed: 08/28/2022 9:47 PM Note Text: [facility] UROLOGY PROGRESS NOTE Name: Olaf Briones Bed: H050 013/H050-13 Date: 08/28/2022 After Hours [facility] Urology Service Pager: [phone] ASSESSMENT AND PLAN Olaf Briones is a 77 year old male with PMHx of HTN, HLD, DM, recent STEMI (s/p JUHI, on Brillinta and ASA), nephrolithiasis s/p ESWL remote, BPH s/p TURP 2001, transferred from [facility] for gross hematuria. Currently with 18Fr [...] pending course, in SICU Active Problems Prior FL POA: Yes - placed on ASA 81, ticagrelor 90 mg BID Nephrolithiasis POA: Yes - Monitor HLD POA: Yes - Home atorva 80 mg DM POA: Yes - SSI HTN POA: Yes - amlodipine 5mg daily, carvedilol 6.25 BID, lisinopril 2.5 mg daily Prema Feliz MD PGY-2 Resident Physician Urology Pager: [phone] For weekend or after hours issues [place] [phone] SUBJECTIVE See above Objective OBJECTIVE Vital Signs BP 112/52 Pulse 69 Temp 36.9 ?C (98.4 ?F) (Oral) Resp 18 Ht 173 cm (5' 8.11 ) Wt 75.5 kg (166 lb 7.2 oz) SpO2 97% BMI 25.23 kg/m? Input and Output Intake/Output Summary (Last 24 hours) at 08/28/20221955 Last data filed at 08/28/2022 1830 Gross per 24 hour Intake 59853 ml Output 40715 ml Net -1875 ml Physical Exam GEN: [...] Feliz MD PGY-2 Resident Physician Urology Pager: [phone] For weekend or after hours issues please page the on-call urology [place]ager at [phone] Hospital07-11-2023 NoteHNO ID: [id number] Author: Prema Feliz MD Service: Urology Author Type: Resident Type: Progress Notes Filed: 08/28/2022 8:02 AM Note Text: [facility] UROLOGY PROGRESS NOTE Name: Olaf Briones Bed: H050 013/H050-13 Date: 08/28/2022 After Hours [facility] [place] [facility] Service Pager: [phone] ASSESSMENT AND PLAN Olaf Briones is a 77 year old male with PMHx of HTN, HLD, DM, recent STEMI (s/p JUHI, on Brillinta and ASA), nephrolithiasis s/p ESWL , BPH s/p TURP 2001, transferred from [facility] for gross hematuria. Currently with 18Fr [...] for cysto, fulguration today Active Problems Prior FL POA: Yes - placed on ASA 81, ticagrelor 90 mg BID Nephrolithiasis POA: Yes - Monitor HLD POA: Yes - Home atorva 80 mg DM POA: Yes - SSI HTN POA: Yes - amlodipine 5mg daily, carvedilol 6.25 BID, lisinopril 2.5 mg daily Essential elements of above plan discussed with staff, Dr. Sharon Feliz MD PGY-2 Resident Physician Urology Pager: [phone] For weekend or after hours issues [place] [phone] SUBJECTIVE See above Objective OBJECTIVE Vital Signs BP 116/57 Pulse 69 Temp 36.5 ?C (97.7 ?F) (Oral) Resp 18 Ht 173 cm (5' 8.11 ) Wt 75.5 kg (166 lb 7.2 oz) SpO2 97% BMI 25.23 kg/m? Input and Output Intake/Output Summary (Last 24 hours) at 08/28/2022721 Last data filed at 08/28/2022 0716 Gross per 24 hour Intake 50725.5 ml Output 85789 ml Net -76460.5 ml Physical Exam GEN: Alert, NAD EYES: Anicteric CV: Warm and well perfused LUNGS: Unlabored breathing on RA ABD: Soft, appropriately tender : Hernandez catheter present Labs Recent Labs 08/27/22 0710 WBC 16.24* HB 13.4 HCT 38.5* PLT 214 NA 140 K 4.3 CHLOR 105 CO2 22 BUN 17 CREAT 0.79 GLUC 197* Imaging Reviewed Prema Feliz MD PGY-2 Resident Physician Urology Pager: [phone] For weekend or after hours issues please page the [place]-call urology [place]ager [place] [phone] Hospital07-10-2023 NoteHNO ID: [id number] Author: Naomy Adkins MD Service: Urology Author [...] antispasmodics (ditropan, belladonna and opium suppositories, levsin, etc).[facility]07-09-2023 Evaluation + Plan noteExtracted from: Title:Urology [...] had a stent placed last saturday at [facility]. sees dr ivory Thank for consultation on [...] BPH with urinary obstruction / SNOMED CT 9206819686 / Confirmed Kidney stone / SNOMED CT 204325614 / Confirmed Weak urinary stream / SNOMED CT 045220531 / Confirmed Microscopic hematuria / SNOMED CT 490214831 / Confirmed Diabetes / SNOMED CT 145637243 / Confirmed Hypertension / SNOMED CT 2930937407 / Confirmed Prostatitis / SNOMED CT 73071874 / Confirmed BPH without urinary obstruction / SNOMED CT 1189154342 / Confirmed Gross hematuria / SNOMED CT 928645311 / Confirmed Asymptomatic microscopic hematuria / SNOMED CT 2044146568 / Confirmed, Active Problems (10) Asymptomatic microscopic hematuria BPH with urinary obstruction BPH without urinary obstruction Diabetes Gross hematuria Hypertension Kidney stone Microscopic hematuria Prostatitis Weak urinary stream Histories Past Medical History: No active or resolved past medical history items have been selected or recorded. Family History: Hypertension Father Procedure history: Cystoscopy (93968798) on 08/18/2013 at 68 Years. Comments: 10/02/2018 16:11 CORTEZT - Katie Rogers MA 11/08/200904/2006 TURP - Transurethral resection of prostate (942700731) in 2006 at 61 Years. Urodynamics (366760007) in 2006 at 61 Years. Transrectal biopsy of prostate using ultrasound (US) guidance (3763886064) in 2005 at 60 Years. ESWL - Extracorporeal shockwave lithotripsy for renal calculus (081755468) in 2000 at 55 Years. Comments: 10/02/2018 [...] Normal range of motion. Integumentary: Warm, Dry, [place]. Neurologic: Alert, Oriented, Normal sensory. Psychiatric: Cooperative, [...] % HI Lymph Auto 6.1 % LOW Ralls Auto 4.9 % Eos Auto 0.9 % Basophil Auto 0.5 % Neutro Absolute 13.5 E9/L HI Lymph Absolute 0.9 E9/L LOW Ralls Absolute 0.8 E9/L Eos Absolute 0.1 E9/L [...] and Plan Diagnosis Abnormal CT scan, bladder (SNC97-TS R93.41, Working, Medical). Anticoagulated by anticoagulation treatment (HNI50-UH Z79.01, Working, Medical). BPH with obstruction/lower urinary tract symptoms (ZYB52-WR N40.1, Working, Medical). Gross hematuria (PCL97-MQ R31.0, Discharge, Medical). S/P TURP (status post transurethral resection of prostate) (KFL05-WU Z90.79, Working, Medical). Urinary retention (QXH03-GZ R33.9, Discharge, Medical). Course: Worsening, Viewed CT [...] do not currently have available here at [facility] continuously. I discussed this extensively with the [...] Date:11/02/2022 08:30:00 AM Scheduled Provider:Shanna IVORY MD Location:[facility] Appointment Type:URO Office Visit [facility]07-05-2023 Hospital Discharge instructions Additional Instructions DISCHARGE INSTRUCTIONS [...] doctor or pharmacist, without first calling the cloud security architect who implanted the stent. If you require [...] weight lifting, stair steppers, etc. until the cloud security architect approves these activities. Check with the cloud security architect on your first follow-up visit. CALL YOUR PHYSICIAN at [phone]: -If bleeding should occur from the catheter insertion site- apply pressure to the site then immediately call us. -Report any fever, redness, drainage, increased swelling, or firmness at the catheter insertion site. Some bruising or slight swelling may be present at the time of discharge. -Should arm or leg become cold, numb, white, or blue, contact the cloud security architect immediately. -IF you should experience episodes of [...] is recommended. Please call Central Scheduling at [phone] to schedule your appointment.] The attending cloud security architect or [facility] nurse clinician should provide you with specific instructions regarding activity, diet, medications, and further follow up for you. Follow the medication instructions provided on your discharge. If the dosages and instructions on this sheet differ from the dosage and instructions on the bottle, follow the instructions on the bottle. [facility] is not responsible for incorrect prescription information provided by the patient during their visit. Do not stop your medications without consulting your health care provider. Please take the list with you to your next doctor's appointment.[facility] Work Phone: [phone]) 473-346907-04-2023 Consult note Author Juanito Barney [facility] August 21, 2022 11:41am Note Date/Time August 21, 2022 11:41 am [facility] [address] [place] [address] Pulmonology Consult Note Signed Patient: Olaf Briones MR#: [id number] : 1945 Acct:[id number] Age/Sex: 77 / M Adm Date: 3 Loc: Room: [address] [place] [address] Type: REG [facility] Attending Dr: Steven Zamora DO Copies to: [...] ST elevation in the inferior lateral leads. Clinical Rn Liaison was activated, patient received PCI to RCA. 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 No focal deficits. [...] found to have inferior lateral ST elevation FL along with complete heart block. Clinical Rn Liaison was activated, patient received PCI to RCA. Patient is currently doing much better with no signs or symptoms of heart block,he is on room air. Optimizing cardiac meds as per cardiology. Glycemic control DVT prophylaxis Discussed with nursing staff Documented By: Juanito Barney MD 08/21/22 113 6 Signed By: <Electronically signed by Juanito Barney MD> 08/21/[address] [facility] Work Phone: [phone]) 770-472707-04-2023 Progress note Author Elpidio Andres [facility] August 21, 2022 8:11am Note Date/Time August 21, 2022 8:11a m [facility] [address] [place] [address] Cardiology Progress Note Signed Patient: Olaf Briones MR#: [id number] : 1945 Acct:[id number] Age/Sex: 77 / M Adm Date: 3 Loc: Room: [address] [place] [address] Type: REG [facility] Attending Dr: Steven Zamora [...] % (Auto) 64.1 Lymph % (Auto) 26.2 Ralls % (Auto) 7.9 Eos % (Auto) 1.3 Baso % (Auto) 0.5 Nucleat RBC Rel Count 0.1 Neut # (Auto) 6.9 Lymph # (Auto) 2.8 Ralls # (Auto) 0.9 H Eos # (Auto) [...] MPV Neut % (Auto) Lymph % (Auto) Ralls % (Auto) Eos % (Auto) Baso % (Auto) Nucleat RBC Rel Count Neut # (Auto) Lymph # (Auto) Ralls # (Auto) Eos # (Auto) Baso # [...] MPV Neut % (Auto) Lymph % (Auto) Ralls % (Auto) Eos % (Auto) Baso % (Auto) Nucleat RBC Rel Count Neut # (Auto) Lymph # (Auto) Ralls # (Auto) Eos # (Auto) Baso # (Auto) Monocyte Dist Width PT INR APTT PHA Creatinine Clear Sodium Potassium Chloride Carbon Dioxide Anion Gap BUN Creatinine Est GFR (CKD-EPI) Glucose Calcium Total Creatine Kinase Troponin I High Sens 9010.4 H* 65024.3 H* 73948.9 H* B-Natriuretic Peptide Triglycerides Cholesterol LDL Cholesterol, Calc VLDL Cholesterol HDL Cholesterol Cholesterol/HDL Ratio 08/21/22 08/21/22 08/21/22 05:30 05:30 05:30 Corrected WBC 13.6 H Uncorrected WBC Count 13.6 H RBC 4.66 Hgb 14.6 Hct 42.7 MCV 91.6 MCH 31.4 MCHC 34.3 RDW 13.5 Plt Count 171 MPV 9.5 Neut % (Auto) 85.4 Lymph % (Auto) 8.2 Ralls % (Auto) 6.1 Eos % (Auto) 0.1 Baso % (Auto) 0.2 Nucleat RBC Rel Count 0.0 Neut # (Auto) 11.7 H Lymph # (Auto) 1.1 Ralls # (Auto) 0.8 Eos # (Auto) 0.0 Baso # (Auto) 0.0 Monocyte Dist Width PT INR APTT PHA Creatinine Clear 74.81 Sodium 138 Potassium 3.8 Chloride 103 Carbon Dioxide 27.1 Anion Gap 11.7 BUN 12 Creatinine 0.71 Est GFR (CKD-EPI) > 60.0 Glucose 162 H Calcium 9.4 Total Creatine Kinase Troponin I High Sens 21110.9 H* B-Natriuretic Peptide Triglycerides 124 Cholesterol 132 [...] evolution today [facility]. (2) Heart block: Assessment/Problem Details: Resolved with jainism of flow to the dominant right coronary [...] signed by Elpidio Andres MD> 08/21/22 0811 [facility] Work Phone: 1(953) 955-642807-03-2023 History and physical note Author Steven Zamora [facility] August 20, 2022 6:29pm Note Date/Time August 20, 2022 6:24p m [facility] [address] [place] [address] Cardiology H&P Signed with Addenda Patient: Olaf Briones MR#: [id number] : 1945 Acct:[id number] Age/Sex: 77 / M Adm Date: 3 Loc: Room: [address] [place] [address] Type: [facility] Attending Dr: Steven Zamora DO Copies to: NON STAFF Steven Zamora DO~ ADDENDUM1 Impression: Inferolateral STEMI with change in complete heart block Plan: Proceed with emergent cath and PCI. A total of 60 minutes nonprocedural critical care time were devoted to the ER staff, review of ECG, Clinical Rn Liaison staff, nursing staff, both patient and family [...] Discussed case with ER attending, reviewed ECGs; Clinical Rn Liaison team activated, half amp of atropine ordered in addition to routine upstream antiplatelet and Antithrombin therapies. Patient arrived at the Clinical Rn Liaison at 1659 underwent first balloon activation at 1724; 63 minutes doorto device time Review of Systems Review of Systems All other systems reviewed & are negative unless noted below or in HPI Constitutional Constitutional: Reports as per [facility] Eyes Eyes: Reports system reviewed and no additional complaints, except as documented ENT Ears, Nose, Mouth, and Throat: Reports system reviewed and no additional complaints, except as documented Cardiovascular Cardiovascular: Reports as per [facility], Reports chest pain at rest, Reports [...] and no additional complaints, except as documented [facility] Medical History (Updated 08/20/22 @ 16:41 by [...] x10E3/uL Lymph # (Auto) 2.8 (1.00-4.8) x10E3/uL Ralls # (Auto) 0.9 H (0.0-0.8) x10E3/uL Eos [...] <Electronically signed by Steven Zamora DO> 08/20/221826 [facility] Work Phone: 1(389) 997-206107-03-2023 [facility]23 Procedure note [facility]07-03-2023 History general Narrative - Reported * Type Description Date Surgical History TURP 2022 Hospitalization History heart attack august 20 2022 Rebit Other 09-09-2022 Hospital Discharge instructions Patient Education [...] urethra. Follow these instructions at home: Take daye-gti-uqvyuaa and prescription medicines only as told by [...] 02/04/2006 Document Revised: 12/30/2018 Document Reviewed: 03/11/2017 [employer] Patient Education 2020 [employer]. Follow Up Care 10/21/2020 08:48:14 With:CACHORRO HAHN, Shanna R, URL Address: [address] [place] [address]- When: Unknown [facility] consult note Author Juanito Barney [facility] August 21, 2022 11:41am Note Date/Time August 21, 2022 11:41 am [facility] [address] [place] [address] Pulmonology Consult Note Signed Patient: Olaf Briones MR#: [id number] : 1945 Acct:[id number] Age/Sex: 77 / M Adm Date: 3 Loc: Room: [address] [place] [address] Type: REG [facility] Attending Dr: Steven Zamora DO Copies to: [...] ST elevation in the inferior lateral leads. Clinical Rn Liaison was activated, patient received PCI to RCA. 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 No focal deficits. [...] found to have inferior lateral ST elevation FL along with complete heart block. Clinical Rn Liaison was activated, patient received PCI to RCA. Patient is currently doing much better with no signs or symptoms of heart block,he is on room air. Optimizing cardiac meds as per cardiology. Glycemic control DVT prophylaxis Discussed with nursing staff Documented By: Juanito Barney MD 08/21/22 113 6 Signed By: <Electronically signed by Juanito Barney MD> 08/21/22 1141 [facility] Work Phone: Discharge summary Author Steven Zamora [facility] August 22, 2022 3:21pm Note Date/Time August 22, 2022 3:17p m [facility] [address] [place] [address] Discharge Summary Signed Patient: Olaf Briones MR#: [id number] : 1945 Acct:[id number] Age/Sex: 77 / M Adm Date: 3 Loc: Room: [address] [place] [address]: Steven Zamora DO Copies to: [...] % (Auto) 72.5, Lymph % (Auto) 15.9, Ralls % (Auto) 9.7, Eos % (Auto) 1.6, Baso % (Auto) 0.3, Nucleat RBC Rel Count 0.1, Neut # (Auto) 6.4, Lymph # (Auto) 1.4, Ralls # (Auto) 0.9 H, Eos # (Auto) [...] doctor or pharmacist, without first calling the cloud security architect who implanted the stent. If you require [...] weight lifting, stair steppers, etc. until the cloud security architect approves these activities. Check with the cloud security architect on your first follow-up visit. CALL YOUR PHYSICIAN at [phone]: -If bleeding should occur from the catheter insertion site- apply pressure to the site then immediately call us. -Report any fever, redness, drainage, increased swelling, or firmness at the catheter insertion site. Some bruising or slight swelling may be present at the time of discharge. -Should arm or leg become cold, numb, white, or blue, contact the cloud security architect immediately. -IF you should experience episodes of [...] is recommended. Please call Central Scheduling at [phone] to schedule your appointment.] The attending cloud security architect or [facility] nurse clinician should provide you with specific instructions regarding activity, diet, medications, and further follow up for you. Follow the medication instructions provided on your discharge. If the dosages and instructions on this sheet differ from the dosage and instructions on the bottle, follow the instructions on the bottle. [facility] is not responsible for [...] signed by Steven Zamora DO> 08/22/[address] [facility] Work Phone: Evaluation + Plan note Future Appointments Appointment Date:11/02/2022 08:30:00 AM Scheduled Provider:Shanna IVORY MD Location:[facility] Appointment Type:URO Office Visit [facility] evaluation + Plan note Future Appointments Appointment Date:03/27/2024 08:45:00 AM Scheduled Provider:Shanna IVORY MD Location:[facility] Appointment Type:URO Office Visit [facility] evaluation note* Diagnosis Onset Date Resolution Status Heart block acute ST elevation (STEMI) myocardial infarction acute Syncope acute [facility] Work Phone: Evaluation note* Diagnosis Arteriosclerotic cardiovascular disease- Primary Unspecified cardiovascular disease Abnormal EKG Nonspecific abnormal electrocardiogram (ECG) (EKG) Mixed hyperlipidemia Primary hypertension Unspecified essential hypertension Post PTCA Postsurgical percutaneous transluminal coronary angioplasty status Essential hypertension Unspecified essential hypertension BMI 26.0-26.9,adult Easy bruisability Other symptoms involving skin and integumentary tissues documented in this encounter [facility] [facility] Work Phone: Evaluation note* Diagnosis Essential hypertension- Primary Unspecified essential hypertension Arteriosclerotic cardiovascular disease Unspecified cardiovascular disease Abnormal EKG Nonspecific abnormal electrocardiogram (ECG) (EKG) Mixed hyperlipidemia Post PTCA Postsurgical percutaneous transluminal coronary angioplasty status BMI 26.0-26.9,adult Never smoked tobacco documented in this encounter [facility] Work Phone: History and physical note Author Steven Zamora [facility] August 20, 2022 6:29pm Note Date/Time August 20, 2022 6:24p m [facility] [address] [place] [address] Cardiology H&P Signed with Addenda Patient: Olaf Briones MR#: [id number] : 1945 Acct:[id number] Age/Sex: 77 / M Adm Date: 3 Loc: Room: [address] [place] [address] Type: REG [facility] Attending Dr: Steven Zamora DO Copies to: NON STAFF Steven Zamora DO~ ADDENDUM1 Impression: Inferolateral STEMI with change in complete heart block Plan: Proceed with emergent cath and PCI. A total of 60 minutes nonprocedural critical care time were devoted to the ER staff, review of ECG, Clinical Rn Liaison staff, nursing staff, both patient and family both pre and post procedurally Addendum Documented By: Steven Zaomra DO 08/20/221828 Addendum Signed By: <Electronically signed [...] Discussed case with ER attending, reviewed ECGs; Clinical Rn Liaison team activated, half amp of atropine ordered in addition to routine upstream antiplatelet and Antithrombin therapies. Patient arrived at the Clinical Rn Liaison at 1659 underwent first balloon activation at [...] and no additional complaints, except as documented [facility] Medical History (Updated 08/20/22 @ 16:41 by [...] x10E3/uL Lymph # (Auto) 2.8 (1.00-4.8) x10E3/uL Ralls # (Auto) 0.9 H (0.0-0.8) x10E3/uL Eos [...] <Electronically signed by Steven Zamora DO> 08/20/221826 [facility] Work Phone: History of Present illness [...] notify me with change in cardiac status [facility] 250 DO Work Phone: History of [...] notify me with change in cardiac status [facility] 250 DO Work Phone: History of [...] he developed hematuria ultimately went to the [facility] where he underwent TURP and removal [...] me change in cardiac status or symptoms [facility] 250 DO Work Phone: Hospital course Narrative No data available for this section [facility] Hospital Discharge instructions No data available for this section [facility] No data available for this section [facility] progress note Author Elpidio Andres [facility] August 21, 2022 8:11am Note Date/Time August 21, 2022 8:11a m [facility] [address] [place] [address] Cardiology Progress Note Signed Patient: Olaf Briones MR#: [id number] : 1945 Acct:[id number] Age/Sex: 77 / M Adm Date: 3 Loc: Room: [address] [place] [address] Type: REG [facility] Attending Dr: Steven Zamora [...] % (Auto) 64.1 Lymph % (Auto) 26.2 Ralls % (Auto) 7.9 Eos % (Auto) 1.3 Baso % (Auto) 0.5 Nucleat RBC Rel Count 0.1 Neut # (Auto) 6.9 Lymph # (Auto) 2.8 Ralls # (Auto) 0.9 H Eos # (Auto) [...] MPV Neut % (Auto) Lymph % (Auto) Ralls % (Auto) Eos % (Auto) Baso % (Auto) Nucleat RBC Rel Count Neut # (Auto) Lymph # (Auto) Ralls # (Auto) Eos # (Auto) Baso # [...] MPV Neut % (Auto) Lymph % (Auto) Ralls % (Auto) Eos % (Auto) Baso % (Auto) Nucleat RBC Rel Count Neut # (Auto) Lymph # (Auto) Ralls # (Auto) Eos # (Auto) Baso # (Auto) Monocyte Dist Width PT INR APTT PHA Creatinine Clear Sodium Potassium Chloride Carbon Dioxide Anion Gap BUN Creatinine Est GFR (CKD-EPI) Glucose Calcium Total Creatine Kinase Troponin I High Sens 9010.4 H* 00521.3 H* 60520.9 H* B-Natriuretic Peptide Triglycerides Cholesterol LDL Cholesterol, Calc VLDL Cholesterol HDL Cholesterol Cholesterol/HDL Ratio 08/21/22 08/21/22 08/21/22 05:30 05:30 05:30 Corrected WBC 13.6 H Uncorrected WBC Count 13.6 H RBC 4.66 Hgb 14.6 Hct 42.7 MCV 91.6 MCH 31.4 MCHC 34.3 RDW 13.5 Plt Count 171 MPV 9.5 Neut % (Auto) 85.4 Lymph % (Auto) 8.2 Ralls % (Auto) 6.1 Eos % (Auto) 0.1 Baso % (Auto) 0.2 Nucleat RBC Rel Count 0.0 Neut # (Auto) 11.7 H Lymph # (Auto) 1.1 Ralls # (Auto) 0.8 Eos # (Auto) 0.0 Baso # (Auto) 0.0 Monocyte Dist Width PT INR APTT PHA Creatinine Clear 74.81 Sodium 138 Potassium 3.8 Chloride 103 Carbon Dioxide 27.1 Anion Gap 11.7 BUN 12 Creatinine 0.71 Est GFR (CKD-EPI) > 60.0 Glucose 162 H Calcium 9.4 Total Creatine Kinase Troponin I High Sens 84333.9 H* B-Natriuretic Peptide Triglycerides 124 Cholesterol 132 [...] evolution today [facility]. (2) Heart block: Assessment/Problem Details: Resolved with jainism of flow to the dominant right coronary [...] signed by Elpidio Andres MD> 08/21/[address] [facility] Work Phone: Reason for referral (narrative)* Consultation (Routine) - Authorized Specialty Diagnoses / Procedures Referred By Contac t Referred To Contact Cardiology Diagnoses Arteriosclerotic cardiovascular disease Abnormal EKG Mixed hyperlipidemia Procedures Follow Up In Cardiology Ashutosh Ling MD [address] [facility] 2, [place] [address] [place] [address] Ashutosh Ling MD [address] [place] [address] [address], [address] [address] Referral ID Status Reason Start Date Expiration Date V isits Requested Visits Authorized [id number] Authorized 01/09/2023 01/09/2024 1 1 [facility] Work Phone: Reason for referral (narrative)* Consultation (Routine) - Authorized Specialty Diagnoses / Procedures Referred By Mellissa shin Referred To Contact Cardiology Diagnoses Arteriosclerotic cardiovascular disease Procedures Follow Up In Cardiology Ashutosh Ling MD [address] [place] [address] 2, [address] [address] Ashutosh Ling MD [address] [place] [address] 2, [address] [address] Referral ID Status Reason Start Date Expiration Date V isits Requested Visits Authorized [id number] Authorized 06/26/2023 06/25/2024 1 1 [facility] Work Phone: Family History Unknown Family [...] Up In Cardiology Ashutosh Ling MD [address] [facility] 2, [address] [address] Ashutosh Ling MD [facility] [address], [address] [address] Referral ID Status Reason Start Date Expiration Date V isits Requested Visits Authorized [id number] Authorized 01/09/2023 01/09/2024 1 1 Care Team (unrecognized sect ion and content) Personnel Name: DAV PEGUERO MD Address: Address: [address] [place] [address] Team Status: Active Member Role Status Dates [...] Active Steven Zamora DO Attending Provider Active Customer Supply Coordinator Relationship Specialty Start Date End Date Jame Barraza MD [address] [phone] PCP - General Family Medicine 08/31/22 Customer Supply Coordinator Relationship Specialty Start Date End Date Jame Barraza MD [address] [phone] PCP - General Family Medicine 08/31/22 Customer Supply Coordinator Relationship Specialty Start Date End Date Ashutosh Ling MD [address] [facility] 2, [address] [address] PCP - [employer] PCP 08/18/22 Dav Peguero MD [address] [place] [address] [place] [address] PCP - General Family Medicine 01/09/23 Customer Supply Coordinator Relationship Specialty Start Date End Date Dav Peguero MD PCP - General Family Medicine 01/09/23 (unrecognized sect ion and content) No Status Records FoundNo Status Records FoundNo Status Records FoundNo Status Records FoundNo Status Records FoundNo Status Records FoundNo Status Records FoundNo Status Records FoundNo Status Records Found INFORMATION SOURCE (unrecogn ized section and content) DATE CREATED AUTHOR 11/15/2021 [facility] pitia DATE CREATED AUTHOR AUTHOR'S ORGANIZ ATION 09/01/2022 [facility] DATE CREATED AUTHOR AUTHOR'S ORGANIZ ATION 09/06/2022 [facility] DATE CREATED AUTHOR AUTHOR'S ORGANIZ ATION 09/07/2022 [facility] DATE CREATED AUTHOR AUTHOR'S ORGANIZ ATION 10/10/2022 [facility] DATE CREATED AUTHOR AUTHOR'S ORGANIZ ATION 06/19/2023 [facility] EPIC DATE CREATED AUTHOR AUTHOR'S ORGANIZ ATION 06/28/2023 [facility] DATE CREATED AUTHOR AUTHOR'S ORGANIZ ATION 08/01/2023 [facility] DATE CREATED AUTHOR AUTHOR'S ORGANIZ ATION 12/01/2023 [facility] Goals (unrecognized section and content) Goals [...] or prosecute any alcohol or drug abuse patient.[facility] FOR RECORDS PERTAINING TO PATIENTS WHO [...] BE BASED ON THE PRIMARY CLINICAL RECORDS. [employer] [facility]. provides no warranty or guarantee of the accuracy or completeness of information in this document.
[2023-12-13 12:48] LABS: Calcium 9.2 mg/dL (8.5-10.1); Carbon Dioxide 26.1 mmol/L (21.0-32.0); Chloride 106 mmol/L (98-107); Estimated GFR (African America >60 (>=60 mL/min/1.73m^2); Estimated GFR (Non-African Ame >60 (>=60 mL/min/1.73m^2); Phosphorus 3.5 mg/dL (2.6-4.7); Sodium 141 mmol/L (136-145); Uric Acid 3.6 mg/dL (3.5-7.2)
[2023-12-13 13:21] LABS: Calcium Urine Random 15.6 mg/dL (5.1-21.0); Creatinine Urine Random 131.94 mg/dL (20.00-300.00); Sodium Urine Random 113 mmol/L (30-90)
[2023-12-13 13:23] LABS: Calcium 24 Hour Urine 202.8 mg/24hr (100.0-300.0); Creatinine 24 Hour Urine 1715.22 mg/24 hr (1000.0-2000.00); Sodium 24 Hour Urine 147 mmol/24h (40-220); Total Volume 24 Hour Urine 1300 mL/24hr
[2023-12-14 08:13] LABS: Magnesium, U 11.1 mg/dL (Not Estab.); Magnesium,Urine 24hr 141.5 mg/24 hr (12.0-293.0); Phosphorus, Urine 104.5 mg/dL (Not Estab.); Phosphorus,Urine 24h 1332 mg/24 hr (390-1425); Uric Acid, Urine 33.9 mg/dL (Not Estab.); Uric Acid,Urine 24hr 432.2 mg/24 hr (136.1-771.1)
[2023-12-14 11:09] LABS: PTH, Intact 42 pg/mL (15-65)
[2023-12-18 14:09] LABS: Citric Acid, U, 24hr 685 mg/24 hr (320-1240); Citric Acid, Urine 537 mg/L (Undefined)
[2023-12-18 15:09] LABS: Oxalates, Urine 24 mg/L (Undefined); Oxalates, Urine 24hr 31 mg/24 hr (7-44)
== END 2023-12-13 11:41 | disposition home or self-care (01) ==
LOC: LAB 11:40
PROVIDERS: PCP Family Medicine; Visit Provider Urology
DX: N20.0 Calculus of kidney (principal)
CPT/HCPCS: 36415; 81050; 82310; 82340; 82374; 82435; 82507; 82565; 82570; 83735; 83945; 83970; 84100; 84105; 84295; 84300; 84520; 84550; 84560

== ENCOUNTER 2024-07-30 10:11 | Outpatient (OUT) | payer MEDICARE, SELFPAY ==
--- OUTSIDE RECORDS SUMMARY | 2024-07-30 10:13 | XMS_ITS | Encounter Summary ---
Author Organization [facility] Address [address] [place] [address] Care Team Providers Care Sofa Inspector Name Role Phone Christiano Coppola MD Primary Care Provider [phone] Christiano Coppola MD Unavailable Encounter Details Date Type Department Care Team (Late st Contact Info) Description 05/06/2024 Abstract [facility] 112 [facility] 110 [place] [phone] Christiano Coppola MD [address] [facility] 110 [place] [address] Social History Tobacco Use Types Packs/Day Years Used Date Smoking Tobacco: Never Smokeless Tobacco: Never Alcohol Use Standard Drinks/Week Comments Defer 0 (1 standard drink = 0.6 oz pur e alcohol) PHQ-2 Answer Date Recorded Patient Health Questionnaire-2 Score 0 04/02/2024 Sex and Gender Information Value Date Recorded Sex Assigned at Not on file Legal Sex Male 9:48 AM EDT Gender Identity Not on file Sexual Orientation Not on file documented as of this encounter Plan of Treatment Not on file documented as of this encounter Visit Diagnoses Not on filedocumented in this encounter Additional Health Concerns Assessment Noted Time PHQ-9 Depression Total Score: 9 06/18/19 24 11:06 AM EDT documented as of this encounter Care Teams Sofa Inspector Relationship Specialty Start Date End Date Christiano Coppola MD [address] [facility] 110 [place] [address] PCP - General Family Medicine 10/09/22 Christiano Coppola MD [address] [place] [facility] 110 [place] [address] PCP - [facility] 05/20/23 [birth year]/17/[birth year] documented as of this encounter
--- OUTSIDE RECORDS SUMMARY | 2024-07-30 10:13 | XMS_ITS | Encounter Summary ---
Author Organization [facility] Address [address] [place] [address] Care Team Providers Care Planning Associate Name Role Phone Christiano Coppola MD Primary Care Provider [phone] Christiano Coppola MD Unavailable Encounter Details Date Type Department Care Team (Late st Contact Info) Description 04/02/2024 Abstract [facility] [address] [place] [address] [place] [id number] Christiano Coppola MD [address] [place] [address] [place] [address] Social History Tobacco Use Types Packs/Day Years [...] on file documented as of this encounter Functional Status * Over the past 2 weeks, how often have you been bothered by any of the following problems? Question Answer Date of Assessment Author Little interest or pleasure in doing things Not at all 04/02/2024 12:00 PM EST Romina Barth MA Feeling down, depressed, or hopeless Not at all 04/02/2024 12:00 PM EST Romina Barth MA Patient Health Questionnaire -2 Score 0 04/02/2024 12:00 PM EST Romina Barth MA documented as of this encounter Plan of Treatment Not on file documented as of this encounter Visit Diagnoses Not on filedocumented in this encounter Additional Health Concerns Assessment Noted Time PHQ-9 Depression Total Score: 9 06/18/19 24 11:06 AM EDT documented as of this encounter Care Teams Planning Associate Relationship Specialty Start Date End Date Christiano Coppola MD [address] [facility] 110 [place] [address] PCP - General Family Medicine 10/09/22 Christiano Coppola MD [address] [facility] 110 [place] [address] PCP - [facility] 05/20/23 [birth year] documented as of this encounter
--- OUTSIDE RECORDS SUMMARY | 2024-07-30 10:13 | XMS_ITS | Encounter Summary ---
Author Organization [facility] Address [address] [place] [address] Care Team Providers Care Honey Blender Name Role Phone Christiano Coppola MD Primary Care Provider [phone] Christiano Coppola MD Unavailable Reason for Referral * Consultation (Routine) - Authorized Specialty Diagnoses / Procedures Referred By Contdotty t Referred To Contact Neurosurgery Diagnoses Arthritis of low back Christiano Coppola MD [address] [address] Phone: tel: fax: Tello Drew MD [address] [place] [address], [address] [place] [address] Phone: tel: fax: Referral ID Status Reason Start Date Expiration Date Visits Requested Visits Authorized [id number] Authorized Specialty Services Required 07/20/2024 01/16/2025 1 1 Encounter Details Date Type Department Care Team (Late st Contact Info) Description 07/20/2024 Orders Only [facility] [address] [address] Christiano Coppola MD [address] [address] Arthritis of low back Social History Tobacco Use Types Packs/Day Years [...] as of this encounter Plan of Treatment Scheduled Referrals Name Type Priority Associated Diagnoses Order Schedule Ambulatory referral to Neurosurgery Outpatient Referral Routine Arthritis of low back Expected: 07/20/2024 (Approximate), Expires: 01/19/2025 documented as of this encounter Visit Diagnoses Diagnosis Arthritis of low back documented in this encounter Additional Health Concerns Assessment Noted Time PHQ-9 Depression Total Score: 9 06/18/19 24 11:06 AM EDT documented as of this encounter Care Teams Honey Blender Relationship Specialty Start Date End Date Christiano Coppola MD 112 [facility] 110 [place] [address] PCP - General Family Medicine 10/09/22 Christiano Coppola MD [address] [facility] 110 [place] [address] PCP - [facility] 05/20/23 [birth year] documented as of this encounter
--- OUTSIDE RECORDS SUMMARY | 2024-07-30 10:13 | XMS_ITS | Encounter Summary ---
Author Organization [facility] Address [address] [place] [address] Phone Care Team Providers Care Pocket Assembler Name Role Phone Christiano Coppola MD Primary Care Provider [phone] Encounter Details Date Type Department Care Team (Late st Contact Info) Description 01/20/2023 Patient Risk Score [facility] Care Management [address] [facility] [place] [address] [place] [address] Social History Tobacco Use Types Packs/Day Years Used Date Smoking Tobacco: Former Cigars Smokeless Tobacco: Never Alcohol Use Standard Drinks/Week Comments Not Currently 0 (1 standard drink = 0.6 oz pur e alcohol) Sex and Gender Information Value Date Recorded Sex Assigned at Not on file Legal Sex Male 10:21 AM EST Gender Identity Not on file Sexual Orientation Not on file COVID-19 Exposure Response Date Recorded In the last 10 days, have yo u been in contact with someone who was confirmed or suspected to have Coronavirus/COVID-19? No / Unsure 01/09/2023 3:14 PM EST documented as of this encounter Plan of Treatment Not on file documented as of this encounter Visit Diagnoses Not on filedocumented in this encounter Additional Health Concerns Assessment Noted Time A fall risk assessment has been complete d for the patient 01/09/2023 3:39 PM EST documented as of this encounter Care Teams Pocket Assembler Relationship Specialty Start Date End Date Christiano Coppola MD PCP - General Family Medicine 01/09/23 documented as of this encounter
--- OUTSIDE RECORDS SUMMARY | 2024-07-30 10:13 | XMS_ITS | Encounter Summary ---
Author Organization [facility] Address [address] [place] [address] Care Team Providers Care Hand Fretted Instrument Maker Name Role Phone Christiano Coppola MD Primary Care Provider [phone] Christiano Coppola MD Unavailable Encounter Details Date Type Department Care Team (Late st Contact Info) Description 04/09/2024 Abstract [facility] 112 [facility] 110 [place] [phone] Christiano Coppola MD [address] [facility] 110 [place] [address] Social History Tobacco Use Types Packs/Day Years [...] documented as of this encounter Care Teams Hand Fretted Instrument Maker Relationship Specialty Start Date End Date Christiano Coppoal MD [address] [facility] 110 [place] [address] PCP - General Family Medicine 10/09/22 Christiano Coppola MD [address] [facility] 110 [place] [address] PCP - [facility] 05/20/23 06/17/65 documented as of this encounter
--- OUTSIDE RECORDS SUMMARY | 2024-07-30 10:13 | XMS_ITS | Encounter Summary ---
Author Organization [facility] Address [address] [place] [address] Phone Care Team Providers Care Shake Packer Name Role Phone Daniel Hernandez MD Primary Care Provider [phone] Christiano Coppola MD Primary Care Provider [phone] Encounter Details Date Type Department Care Team (Late st Contact Info) Description 11/20/2022 Patient Risk Score [facility] [place] [address] [place] [address] [place] [address] Social History Tobacco Use Types Packs/Day Years Used Date Smoking Tobacco: Never Assessed Sex and Gender Information Value Date Recorded Sex Assigned at Not on file Legal Sex Male 10:21 AM EST Gender Identity Not on file Sexual Orientation Not on file documented as of this encounter Plan of Treatment Not on file documented as of this encounter Visit Diagnoses Not on filedocumented in this encounter Care Teams Shake Packer Relationship Specialty Start Date End Date Daniel Hernandez MD [address] [place] [address] [place] [address] PCP - General 09/05/22 01/08/23 Christiano Coppola MD [address] [place] [address] [place] [address] PCP - General Family Medicine 01/09/23 documented as of this encounter
--- OUTSIDE RECORDS SUMMARY | 2024-07-30 10:13 | XMS_ITS | Encounter Summary ---
Author Organization [facility] Address [address] [place] [address] Care Team Providers Care Trust Clerk Name Role Phone Christiano Coppola MD Primary Care Provider [phone] Christiano Coppola MD Unavailable Encounter Details Date Type Department Care Team (Late st Contact Info) Description 06/26/2024 Abstract [facility] 112 [facility] 110 [place] [phone] Christiano Coppola MD [address] [facility] 110 [place] [address] Social History Tobacco Use Types Packs/Day Years [...] documented as of this encounter Care Teams Trust Clerk Relationship Specialty Start Date End Date Christiano Coppola MD [address] [facility] 110 [place] [address] PCP - General Family Medicine 10/09/22 Christiano Coppola MD [address] [facility] [address] [place] [address] PCP - [facility] 05/20/23 06/17/65 documented as of this encounter
--- OUTSIDE RECORDS SUMMARY | 2024-07-30 10:13 | XMS_ITS | Encounter Summary ---
Author Organization [facility] Address [address] [place] [address] Phone Care Team Providers Care Skills Trainer Name Role Phone Daniel Hernandez MD Primary Care Provider [phone] Christiano Coppola MD Primary Care Provider [phone] Encounter Details Date Type Department Care Team (Late st Contact Info) Description 12/21/2022 Patient Risk Score [facility] Care Management [address] [place] [address] [place] [address] Social History Tobacco Use Types Packs/Day Years [...] on filedocumented in this encounter Care Teams Skills Trainer Relationship Specialty Start Date End Date Daniel Hernandez MD [address] [place] [address] [place] [address] PCP - General 09/05/22 01/08/23 Christiano Coppola MD [address] [place] [address] [place] [address] PCP - General Family Medicine 01/09/23 documented as of this encounter
--- OUTSIDE RECORDS SUMMARY | 2024-07-30 10:13 | XMS_ITS | Clinical Summary ---
Author Organization [facility] Healthcare Address [address] [place] [address] Care Team Providers Care Funeral Home Attendant Name Role Phone Christiano Coppola MD Primary Care Provider [phone] Christiano Coppola MD Unavailable Allergies Active Allergy Reactions Criticality Noted Date Comments Albuterol Low 10/31/2022 Hydrochlorothiazide Medium 10/31/2022 Medications amLODIPine (Norvasc) 5 MG tablet Take by mouth Daily. Active allopurinol (Zyloprim) 300 MG tablet Take by mouth. Active [facility] Aspirin Low Dose 81 MG EC tablet TAKE 1 TABLET BY MOUTH EVERY DAY FOR 14 DAYS 3 Active atorvastatin (Lipitor) 80 MG tablet Take 80 mg by mouth in the morning. 3 Active carvedilol (Coreg) 6.25 MG tablet TAKE 1 TABLET BY MOUTH TWICE A DAY WITH A MEAL/FOOD Active lisinopril 2.5 MG tablet Take 2.5 mg by mouth in the morning. Active nitroglycerin (Nitrostat) 0.[address] 0.4 mg under the tongue. 3 Active ticagrelor (Brilinta) 90 MG tablet Take 90 mg by mouth in the morning and 90 mg in the evening. 3 Active citalopram (CeleXA) 10 MG tabletIndicati ons:Current mild episode of major depressive disorder without prior episode TAKE 1 TABLET (10 MG) BY MOUTH DAILY. 90 tablet 3 5 Active citalopram (CeleXA) 10 MG tabletIndicati ons:Current mild episode of major depressive disorder without prior episode TAKE 1 TABLET (10 MG) BY MOUTH DAILY. 90 tablet 1 4 07/21/19 25 Discontinued Active Problems Problem Noted Date Diagnosed Date Sciatica 04/02/2024 Never smoked tobacco 06/26/2023 Dyspnea on exertion 05/21/2023 Assessment & Plan (05/21/2023 11:47 AM EDT): With known CAD and stents, needs stress test Chest pain due to CAD 05/21/2023 Assessment & Plan (05/21/2023 11:48 AM EDT): Needs f/up cardiologfy Atherosclerosis of aorta (I70.0) 05/21/2023 Medicare annual wellness visit, initial 03/12/19 Assessment & Plan (04/02/2024 1:32 PM EST): Colonoscopy every 10 years or Cologuard every 3 years ages 50-75 Flu Vaccine yearly Pneumovax and Prevnar Mammo yearly for women and PSA yearly for men Labs/Screening yearly to rule out Diabetes, Chronic Kidney disease and liver disease Hepatitis Screen forat risk populations Shingles vaccine after 65 if indicated Tetanus Vaccine every 10 years Lipids yearly under the age of 75 If Smoking history: one time CT scan of chest and Ultrasound of Aorta to screen for Anuerysm Assessment & Plan (03/12/2023 10:29 AM EST): Colonoscopy every 10 years or Cologuard every 3 years ages 50-75 Flu Vaccine yearly Pneumovax and Prevnar Mammo yearly for women and PSA yearly for men Labs/Screening yearly to rule out Diabetes, Chronic Kidney disease and liver disease Hepatitis Screen forat risk populations Shingles vaccine after 65 if indicated Tetanus Vaccine every 10 years Lipids yearly under the age of 75 If Smoking history: one time CT scan of chest and Ultrasound of Aorta to screen for Anuerysm BMI 26.0-26.9,adult 01/09/2023 Easy bruisability 01/09/2023 Abnormal EKG 01/08/2023 Mixed hyperlipidemia 01/08/2023 Post PTCA 01/08/2023 Coronary artery disease of n ative artery of [place] heart with stable angina pectoris 11/05/2022 Assessment & Plan (05/21/2023 11:48 AM EDT): If has chest pain, heaviness, and SOB and Diaphoresis Assessment & Plan (11/05/2022 2:14 PM EDT): F/U Dr. Zamora Continue Current Meds Gout 11/05/2022 Assessment & Plan (11/05/2022 2:15 PM EDT): No MS kidney Stones Kidney stones 11/05/2022 Assessment & Plan (11/05/2022 2:14 PM EDT): He is on Allopurinol Primary hypertension 11/05/2022 Assessment & Plan (11/05/2022 2:14 PM EDT): Our specific goals, for your hypertension, is to keep your blood pressure less than 140/90, and the importance of weight control. We made recommendations on how to control your blood pressure, and minimize your risk of these copmplications. We also discussed your current barriers to a healthy living and importance of healthy diet and exercise. Prior to your visit today we have reviewed your chart and formed a plan to assist with providing you the best possible care. We reviewed the possible complications of hypertension including, stroke, heart failure and kidney impairment. In addition, we discussed your medications, the importance of taking them as prescribed. DASH diet handouts Malnutrition of mild degree (HHS-HCC) 08/29/2022 Overview (11/05/2022): Last Assessment & Plan: Assessment: Patient on liquid diet. Plan: - Advance to regular diet Adverse reaction to antiplatelet agent 3 Hematuria 08/27/2022 Overview (11/05/2022): Last Assessment & Plan: S/p Cystourethroscopy, clot evacuation, cystolitholapaxy, and TURP on 08/18. Per urology there is concern for development of hyponatremia given the significant amount of irrigation that was necessary during the prodcedure. Na is stable above 135. CBI stopped at 6:30 AM today, Urology monitoring. Plan - Continue to monitor H/H - CMP q 6 hours to monitor Na - Management per urology, pending discharge/transfer Leukocytosis 08/27/2022 Overview (11/05/2022): Last Assessment & Plan: Assessment: WBC count downtrending. Blood and urine cultures negative. On Zosyn since 08/27 Plan: - D/c zosyn per primary Myocardial infarction 08/27/2022 Overview (11/05/2022): Last Assessment & Plan: Assessment: STEMI on 08/19/2022 s/p JUHI Plan - Continue dual antiplatelet therapy with aspirin and ticagrelor Type 2 diabetes mellitus wit hout complication, without long-term current use of insulin 08/27/2022 Overview (11/05/2022): Last Assessment & Plan: Assessment: Patient is not on home medications, not on home insulin. Patient given 4 units of SSI in past 24 hours. Sugars between 146-163 Plan: - SSI 3 - Monitor BG Assessment & Plan (04/02/2024 1:31 PM EST): No Tobacco use Follow ADA 1800 diet low carbohydrate Continue Med Compliance Goal LDL less than 100 Goal BP 130/80 Goal HgbA1c < 7.0% Monitor Feet, monitor for infection Needs Exercise Yearly eye exams Prior to your visit today we reviewed your chart and outlined testing and treatment needed for your care. Reviewed poissble complications of diabetes including, loss of vision, kidney failure and increased risk of heart attacks and stroke. We made recommendations on how to control your blood sugars, and minimize your risk of these complications. We discussed your current barriers to a healthy living and importance of healthy diet and exercise. Assessment & Plan (03/12/2023 10:11 AM EST): No Tobacco use Follow ADA 1800 diet low carbohydrate Continue Med Compliance Goal LDL less than 100 Goal BP 130/80 Goal HgbA1c < 7.0% Monitor Feet, monitor for infection Needs Exercise Yearly eye exams Prior to your visit today we reviewed your chart and outlined testing and treatment needed for your care. Reviewed poissble complications of diabetes including, loss of vision, kidney failure and increased risk of heart attacks and stroke. We made recommendations on how to control your blood sugars, and minimize your risk of these complications. We discussed your current barriers to a healthy living and importance of healthy diet and exercise. Recommend Jardiance Encounters Date Type Department Care Team Description 07/20/2024 Orders Only [facility] [address] [place] [id number] Christiano Coppola MD Arthritis of low back 07/20/2024 Refill [facility] [address] [place] [phone] Lucinda Demarco PA Current mild episode of major depressive disorder without prior episode 06/26/2024 Abstract [facility] [address] [place] [id number] Christiano Coppola MD 05/06/2024 Abstract [facility] [address] [place] [id number] Christiano Coppola MD from Last 3 Months Immunizations Immunization Administration Dates Next Due AS03 Adjuvant 12/16/2018,12/24/2017 Influenza Nasal, Unspecified 02/18/2022, 11/18/2020,10/20/2015,11/06 Influenza, High Dose Seasona l, Preservative Free 11/18/2023,12/26/2021,12/21/2016,11/22 Influenza, High-dose Seasona l, Quadrivalent, Preservative Free 11/19/2022,12/16/2019 Influenza, Seasonal, Quadriv alent, Adjuvanted 12/26/2021,11/10/2020 Influenza, live, intranasal 02/18/2022 Pneumococcal Conjugate PCV 13 11/06/2014 Pneumococcal Polysaccharide PPSV23 02/19/2016 Tdap 03/27/2021 Social History Tobacco Use Types Packs/Day Years Used Date Smoking Tobacco: Never Smokeless Tobacco: Never Tobacco Cessation:Counseling Given: Not Answered Alcohol Use Standard Drinks/Week Comments Defer 0 (1 standard drink = 0.6 oz pur e alcohol) PHQ-2 Answer Date Recorded Patient Health Questionnaire-2 Score 0 04/02/2024 Sex and Gender Information Value Date Recorded Sex Assigned at Not on file Legal Sex Male 9:48 AM EDT Gender Identity Not on file Sexual Orientation Not on file Last Filed Vital Signs Vital Sign Reading Time Taken Comments Blood Pressure 138/72 04/02/2024 1:08 PM EST Pulse 72 04/02/2024 1:08 PM EST Temperature - - Respiratory Rate 16 06/18/2023 10:37 AM EDT Oxygen Saturation 97% 04/02/2024 1:08 PM EST Inhaled Oxygen Concentration - - Weight 83 kg (183 lb) 04/02/2024 1:08 PM EST Height 175.3 cm (5' 9 ) 04/02/2024 1:08 PM EST Body Mass Index 27.02 04/02/2024 1:08 PM EST Plan of Treatment Health Maintenance Due Date Last Done Comments Diabetes: Retinopathy Screening 06/18/1955 Diabetes: Hemoglobin A1C 06/30/2024 025, 06/18/2023, 03/12/2023 Medicare Annual Wellness (AWV) 04/02/2025 04/02/2024 , 03/12/2023 Diabetes: Urine Protein Screening 04/03/2025 025, 03/15/2023 Pneumococcal Vaccine: 65+ Years Completed , 11/06/2014 Influenza Vaccine Completed 11/18/2023, , 02/18/2022, Additional history exists Procedures Procedure Name Priority Date/Time Associated Diagnosis Comments MICROALBUMIN / CREATININE URINE RATIO Routine 04/03/2024 8:19 AM EST Medicare annual wellness visit, initial Type 2 diabetes mellitus without complication, without long-term current use of insulin (HCC) POCT GLYCATED HEMOGLOBIN, TOTAL Routine 04/02/2024 1:28 PM EST Type 2 diabetes mellitus without complication, without long-term current use of insulin (HCC) from Last 3 Months or Most Recently Relevant to Health Maintenance Results * Microalbumin / creatinine urine ratio (04/03/2024 8:19 AM EST) CREATININE, RANDOM URINE 117 20 - 320 mg/dL [facility] ALBUMIN, URINE 0.9 See Note: mg/dL [facility] Comment: Reference Range: Reference Range Not established ALBUMIN/CREATININE RATIO, RANDOM URINE 8 <30 mg/g creat [facility] Comment: The ADA defines abnormalities in albumin excretion as follows: Albuminuria Category Result (mg/g creatinine) Normal to Mildly increased <30 Moderately increased 30-299 Severely increased > OR = 300 The ADA recommends that at least two of three specimens collected within a 3-6 month period be abnormal before considering a patient to be within a diagnostic category. Urine Urine specimen obtained by clean catch procedure / Unknown 04/03/2024 8:19 AM EST 04/03/2024 3:38 PM EST Narrative [facility] - 04/05/2024 4:17 AM EST FASTING:YES FASTING: YES Resulting Agency Comment Performing Organization Information Site ID: [id number] Name: [facility] Address: [address] [place] [address], [address] [place] [id number] Director: Brennon Zhong MD us Christiano Coppola MD LAB URINE ORDERABLES Final Resul t Performing Organization Address City/State/[facility] Co de Phone Number [facility] * (ABNORMAL) POCT Glycated hemoglobin, total (04/02/2024 1:28 PM EST) Hemoglobin A1C 6.7 Blood 04/02/2024 1:28 PM EST us Christiano Coppola MD POINT OF CARE TEST ENTER/EDIT OR DERABLES Final Result from Last 3 Months or Most Recently Relevant to Health Maintenance Insurance [place] [address] MEDICARE COMPLETE Care Teams Funeral Home Attendant Relationship Specialty Start Date End Date Christiano Coppola MD [address] [facility] [address] [place] [address] PCP - General Family Medicine 10/09/22 Christiano Coppola MD [address] [facility] [address] [place] [address] PCP - [facility] 05/20/23 [birth year]/17/[birth year]
--- OUTSIDE RECORDS SUMMARY | 2024-07-30 10:13 | XMS_ITS | Clinical Summary ---
Author Organization [facility] Address [address] [place] [address] Phone Care Team Providers Care Interactive Media Project Manager Name Role Phone Christiano Coppola MD Primary Care Provider [phone] Allergies Active Allergy Reactions Criticality Noted Date Comments Albuterol Headache Low 01/08/2023 Hydrochlorothiazide Rash Low 01/08/2023 Medications allopurinol (Zyloprim) 300 mg tablet Take 1 tablet (300 mg) by mouth once daily. Active amLODIPine (Norvasc) 5 mg tablet Take 1 tablet (5 mg) by mouth once daily. Active nitroglycerin (Nitrostat) 0.[address] 1 tablet (0.4 mg) under the tongue. Place 1 tablet under the tongue every 5 minutes up to 3 doses as needed for chest pain. Call 911 if pain persists Active lisinopril 2.5 mg tablet Take 1 tablet (2.5 mg) by mouth once daily. Active atorvastatin (Lipitor) 40 mg tablet Take 1 tablet (40 mg) by mouth once daily. Active citalopram (CeleXA) 10 mg tablet Take 1 tablet (10 mg) by mouth once daily. 4 Active carvedilol (Coreg) 3.125 mg tabletIndications:A rteriosclerotic cardiovascular disease,Essential hypertension Take 1 tablet (3.125 mg) by mouth 2 times a day with meals. 60 tablet 11 4 Active aspirin 81 mg EC tablet Take 1 tablet (81 mg) by mouth every other day. Active Active Problems Problem Noted Date Diagnosed Date Never smoked tobacco 06/26/2023 BMI 28.0-28.9,adult 01/09/2023 Easy bruisability 01/09/2023 Abnormal EKG 01/08/2023 Mixed hyperlipidemia 01/08/2023 Arteriosclerotic cardiovascular disease 01/09/20 Post PTCA 01/08/2023 Essential hypertension 01/08/2023 Resolved Problems Problem Noted Date Diagnosed Date Resolved Date Hypertension 01/08/2023 01/09/2023 Immunizations Immunization Administration Dates Next Due Flu vaccine, trivalent, pres ervative free, HIGH-DOSE, age 65y+ (Fluzone) 12/26/2021 Influenza, seasonal, injectable 11/06/2023 Pfizer Purple Cap SARS-CoV-2 02/06/2021,04/12/19,03/22/2020 Pneumococcal polysaccharide vaccine, 23-valent, age 2 years and older (PNEUMOVAX 23) 02/19/2016 Social History Tobacco Use Types Packs/Day Years Used Date Smoking Tobacco: Never Smokeless Tobacco: Never Alcohol Use Standard Drinks/Week Comments Never 0 (1 standard drink = 0.6 oz pur e alcohol) Sex and Gender Information Value Date Recorded Sex Assigned at Not on file Legal Sex Male 10:21 AM EST Gender Identity Not on file Sexual Orientation Not on file Last Filed Vital Signs Vital Sign Reading Time Taken Comments Blood Pressure 126/58 03/13/2024 11:12 AM EST Pulse 56 03/13/2024 11:12 AM EST Temperature - - Respiratory Rate - - Oxygen Saturation - - Inhaled Oxygen Concentration - - Weight 84.8 kg (187 lb) 03/13/2024 11:12 AM EST Height 172.7 cm (5' 8 ) 03/13/2024 11:12 AM EST Body Mass Index 28.43 03/13/2024 11:12 AM EST Plan of Treatment Health Maintenance Due Date Last Done Comments Lipid Panel 1945 Medicare Annual Wellness Visit (AWV) 1945 Hepatitis C Screening 06/18/1963 Zoster Vaccines (1 of 2) 06/18/1995 RSV High Risk: (Elderly (60+) or Population) (1 - 1-dose 75+ series) 2020 COVID-19 Vaccine ( season) 2023 02/06/2021, 04/12/2020, 03/22/2020 DTaP/Tdap/Td Vaccines (2 - Td or Tdap) 03/27/2031 03/27/2021 Pneumococcal Vaccine Completed 02/19/2016, 11/06/2014, 09/11/2010 Influenza Vaccine Completed 11/18/2023, , 11/19/2022, Additional history exists HIB Vaccines Aged Out No longer eligi ble based on patient's age to complete this topic HPV Vaccines Aged Out No longer eligi ble based on patient's age to complete this topic Hepatitis A Vaccines Aged Out No long er eligible based on patient's age to complete this topic Hepatitis B Vaccines Aged Out No long er eligible based on patient's age to complete this topic IPV Vaccines Aged Out No longer eligi ble based on patient's age to complete this topic Meningococcal Vaccine Aged Out No kevin mannie eligible based on patient's age to complete this topic Rotavirus Vaccines Aged Out No longer eligible based on patient's age to complete this topic Insurance [employer] MEDICARE [employer] MEDICARE Care Teams Interactive Media Project Manager Relationship Specialty Start Date End Date Christiano Coppola MD PCP - General Family Medicine 01/09/23
--- OUTSIDE RECORDS SUMMARY | 2024-07-30 10:14 | XMS_ITS | Encounter Summary ---
Author Organization [facility] Address [address] [place] [address] Care Team Providers Care Locks Inspector Name Role Phone Christiano Coppola MD Primary Care Provider [phone] Christiano Coppola MD Unavailable Encounter Details Date Type Department Care Team (Late st Contact Info) Description 12/28/2022 Orders Only [facility] [address] [facility] [address] [place] [id number] A, Unknown Practice [address] [place], [place] [id number] Social History Tobacco Use Types Packs/Day Years Used Date Smoking Tobacco: Never Smokeless Tobacco: Never Sex and Gender Information Value Date Recorded Sex Assigned at Not on file Legal Sex Male 9:48 AM EDT Gender Identity Not on file Sexual Orientation Not on file documented as of this encounter Plan of Treatment Not on file documented as of this encounter Procedures Procedure Name Priority Date/Time Associated Diagnosis Comments X-RAY : SPINE, LUMBAR Routine 12/27/2022 9:06 AM EST documented in this encounter Results * X-RAY : SPINE, LUMBAR (12/27/2022 9:06 AM EST) Anatomical Region Laterality Modality Radiographic Kristi ging Unknown Practice A IMG XR PROCEDURES Final Resul t documented in this encounter Visit Diagnoses Not on filedocumented in this encounter Care Teams Locks Inspector Relationship Specialty Start Date End Date Christiano Coppola MD [address] [facility] [address] [place] [address] PCP - General Family Medicine 10/09/22 Christiano Coppola MD [address] [facility] [address] [place], [place] [id number] [facility] 05/20/23 06/17/65 documented as of this encounter
--- OUTSIDE RECORDS SUMMARY | 2024-07-30 10:14 | XMS_ITS | Encounter Summary ---
Author Organization [facility] Address [address] [place] [address] Care Team Providers Care Butcher Or Smallgoods Maker Name Role Phone Christiano Coppola MD Primary Care Provider [phone] Christiano Coppola MD Unavailable Encounter Details Date Type Department Care Team (Late st Contact Info) Description 09/13/2023 Clinisync Result Encounter [facility] External Department Unsolicited Provider, Generic External Data Social History Tobacco Use Types Packs/Day Years Used Date Smoking Tobacco: Never Smokeless Tobacco: Never Alcohol Use Standard Drinks/Week Comments Defer 0 (1 standard drink = 0.6 oz pur e alcohol) PHQ-2 Answer Date Recorded Patient Health Questionnaire-2 Score 4 06/18/2023 Sex and Gender Information Value Date Recorded Sex Assigned at Not on file Legal Sex Male 9:48 AM EDT Gender Identity Not on file Sexual Orientation Not on file documented as of this encounter Plan of Treatment Not on file documented as of this encounter Procedures Procedure Name Priority Date/Time Associated Diagnosis Comments RT PULMONARY FUNCTION TEST 09/13/2023 7:44 AM EDT documented in this encounter Results * RT PULMONARY FUNCTION TEST (09/13/2023 7:44 AM EDT) Anatomical Region Laterality Modality Other 09/13/2023 7:44 AM EDT Narrative 09/23/2023 7:48 AM EDT [address] [address] Respiratory Report Signed Patient: OLAF BRIONES MR#: [id number] : 1945 Acct:[id number] Age/Sex: 78 / M ADM Date: 09/13/23 Loc: CARD Attending Dr: Non-Staff Physician Villatoro Ordering Physician: Sisi Martinez M.D. Date of Service: 09/13/23 Procedure(s): RT pulmonary function test Accession Number(s): [id number] cc: [facility] Test Date: 2023-09-13 Pat Name: OLAF BRIONES Department: Room: - Gender: Male Manager Requirements: Corrine Salinas,BUSINESS SYSTEMS ADMINISTRATOR : 1945 Requested By: [id number] Order Number: [id number] Reading MD: Martin Tucker Interpretive Statements Spirometry was completed according to ATS criteria. Findings were considered accurate and reproducible. No bronchodilator was administered due to normal spirometric values. Spirometry: -FEV1/FVC: Normal @ 74% -FEV1: Normal @ 98% -FVC: Normal @ 94% Flow-volume loop: -'Scooping/coving' of the expiratory limb -Mild flattening of inspiratory limb Impressions: -Technically normal spirometry, though FEV1/FVC is trending towards a mild obstructive pattern. Mild flattening of the inspiratory limb which may indicate a variable extrathoracic obstruction. Clinical correlation required. Electronically Signed On 09-23-2023 7:47:33 EDT by Martin Tucker Dictated By: Martin Tucker D.O. Signed By: 09/23/23 0748 DD/ 0744 TD/TT: [employer] Internship: Procedure Note Radiology, Radiologist, - 09/23/2023 [place] [address] Respiratory Report Signed Patient: OLAF BRIONES WMR#: [id number] : 1945cct:[id number] Age/Sex: 78 / MADM Date: 09/13/23 Loc: CARD Attending Dr: Non-Staff Physician Villatoro Ordering Physician: Sisi Martinez M.D. Date of Service: 09/13/23 Procedure(s): RT pulmonary function test Accession Number(s): [id number] cc: [facility] Test Date: 2023-09-13 Pat Name: OLAF BRIONES Department: Room: - Gender: Male Manager Requirements: Corrine SalinasTOYA : 1945 Requested By: [id number] Order Number: [id number] Reading MD: Martin Tucker Interpretive Statements Spirometry was completed according to ATS criteria. Findings wereconsidered accurate and reproducible. No bronchodilator was administered due tonormal spirometric values. Spirometry: -FEV1/FVC: Normal @ 74% -FEV1: Normal @ 98% -FVC: Normal @ 94% Flow-volume loop: -'Scooping/coving' of the expiratory limb -Mild flattening of inspiratory limb Impressions: -Technically normal spirometry, though FEV1/FVC is trending towards a mild obstructive pattern. Mild flattening of the inspiratory limb which may indicate a variable extrathoracic obstruction. Clinical correlation required. Electronically Signed On 09-23-2023 7:47:33 EDT by Martin Tucker Dictated By: Martin Tucker D.O. Signed By:09/23/23 0748 DD/ TD/TT: [employer] Compl[employer] Internship: us Generic External Data Provider [facility] Final Result documented in this encounter Visit Diagnoses Not on filedocumented in this encounter Additional Health Concerns Assessment Noted Time PHQ-9 Depression Total Score: 9 06/18/19 24 11:06 AM EDT documented as of this encounter Care Teams Butcher Or Smallgoods Maker Relationship Specialty Start Date End Date Christiano Coppola MD [address] [facility] [address] [place] [address] PCP - General Family Medicine 10/09/22 Christiano Coppola MD [address] [facility] [address] [place] [address] PCP - [facility] 05/20/23 06/17/65 documented as of this encounter
--- OUTSIDE RECORDS SUMMARY | 2024-07-30 10:14 | XMS_ITS | Encounter Summary ---
Author Organization [facility] Address [address] [place] [address] Care Team Providers Care Supervising Editor News Reel Name Role Phone Christiano Coppola MD Primary Care Provider [phone] Christiano Coppola MD Unavailable Encounter Details Date Type Department Care Team (Late st Contact Info) Description 03/18/2023 Abstract [facility] [address] [facility] 110 [place] [phone] Christiano Coppola MD [address] [facility] 110 [place] [address] Social History Tobacco Use Types Packs/Day Years Used Date Smoking Tobacco: Never Smokeless Tobacco: Never PHQ-2 Answer Date Recorded Patient Health Questionnaire-2 Score 0 03/12/2023 Sex and Gender Information Value Date Recorded Sex Assigned at Not on file Legal Sex Male 9:48 AM EDT Gender Identity Not on file Sexual Orientation Not on file documented as of this encounter Plan of Treatment Not on file documented as of this encounter Visit Diagnoses Not on filedocumented in this encounter Care Teams Supervising Editor News Reel Relationship Specialty Start Date End Date Christiano Coppola MD [address] [facility] 110 [place] [address] PCP - General Family Medicine 10/09/22 Christiano Coppola MD [address] [facility] 110 [place] [address] PCP - [facility] 05/20/23 06/17/65 documented as of this encounter
--- OUTSIDE RECORDS SUMMARY | 2024-07-30 10:14 | XMS_ITS | Encounter Summary ---
Author Organization [facility] Address [address] [facility] [place] [address] Care Team Providers Care Comic Writer Name Role Phone Christiano Coppola MD Primary Care Provider [phone] Christiano Coppola MD Unavailable Encounter Details Date Type Department Care Team (Late st Contact Info) Description 01/17/2023 Abstract [facility] [address] [facility] 110 [place] [phone] Christiano Coppola MD [address] [facility] 110 [place] [address] Social History Tobacco Use Types Packs/Day Years [...] on filedocumented in this encounter Care Teams Comic Writer Relationship Specialty Start Date End Date Christiano Coppola MD [address] [facility] 110 [place] [address] PCP - General Family Medicine 10/09/22 Christiano Coppola MD [address] [facility] 110 [place] [address] PCP - [facility] 05/20/23 06/17/65 documented as of this encounter
--- OUTSIDE RECORDS SUMMARY | 2024-07-30 10:14 | XMS_ITS | Referral Summary ---
Author Organization [facility] Address [address] [place] [address] Care Team Providers Care Welfare Visitor Name Role Phone Unavailable Primary Care Provider Unavailabl e Social History Tobacco Use Types Packs/Day Years Used Date Smoking Tobacco: Never Assessed [place] Safety & Environment Answer Date Rec orded Fear of Current or Ex-Partner Not on file Emotionally Abused Not on file 04/11/2023 Physically Abused Not on file 04/11/2023 Sexually Abused Not on file 04/11/2023 Physically or Sexually Abused Not on file Sex and Gender Information Value Date Recorded Sex Assigned at Not on file Legal Sex Male 12:42 AM EDT Gender Identity Not on file Sexual Orientation Not on file Plan of Treatment Not on file Insurance [facility] [employer] [address]
--- OUTSIDE RECORDS SUMMARY | 2024-07-30 10:14 | XMS_ITS | Encounter Summary ---
Author Organization [facility] Address [address] [place] [address] Care Team Providers Care Cardroom Attendant Name Role Phone Christiano Peguero MD Primary Care Provider Christiano Peguero MD Unavailable Encounter Details Date Type Department Care Team (Late st Contact Info) Description 03/06/2023 Clinisync Result Encounter N[facility]S External Department Unsolicited Christiano Peguero MD [address] [facility] 110 [place] [address] Social History Tobacco Use Types Packs/Day Years [...] Procedure Name Priority Date/Time Associated Diagnosis Comments ITP 03/06/2023 1:25 PM EST documented in this encounter Results * ITP (03/06/2023 1:25 PM EST) Anatomical Region Laterality Modality Other 03/06/2023 1:25 PM EST Narrative 03/07/2023 7:16 AM EST The [address] [address] Cardiac Rehab Report Signed Patient: OLAF BRIONES MR#: [id number] : 1945 Acct:[id number] Age/Sex: 77 / M ADM Date: 03/06/23 Loc: CR Attending Dr: NAHOMI BUENO Ordering Physician: CHRISTIANO PEGUERO Date of Service: 03/06/23 Procedure(s): ITP Accession Number(s): [id number] cc: The [facility] Test Date: 2023-03-06 Pat Name: OLAF BRIONES Department: Room: - Gender: Male General Warehouse Associate: : 1945 Requested By: CHRISTIANO PEGUERO Order Number: [id number] Jorden MD: TAIWO LYNNE Interpretive Statements Session Date: Electronically Signed On 03-07-2023 7:16:02 EST by TAIWO LYNNE Dictated By: Taiwo Lynne D.O. Signed By: 03/07/23 0716 03/07/23 0716 DD/ 1325 TD/TT: Assembling Motor Builder: Procedure Note Radiology, Radiologist, MD - 03/07/2023 [place] [address] Cardiac Rehab Report Signed Patient: OLAF BRIONES WMR#: [id number] : 1945cct:[id number] Age/Sex: 77 / MADM Date: 03/06/23 Loc: CR Attending Dr: NAHOMI BUENO Ordering Physician: CHRISTIANO PEGUERO Date of Service: 03/06/23 Procedure(s): ITP Accession Number(s): [id number] cc: [facility] Test Date: 2023-03-06 Pat Name: OLAF BRIONES Department: Room: - Gender: Male General Warehouse Associate: : 1945 Requested By: CHRISTIANO PEGUERO Order Number: [id number] Jorden MD: TAIWO LYNNE Interpretive Statements Session Date: Electronically Signed On 03-07-2023 7:16:02 EST by TAIWO LYNNE Dictated By: Taiwo Lynne D.O. Signed By:03/07/23 0716 03/07/23 0716 DD/ 1325 TD/TT: Assembling Motor Builder: Christiano Peguero MD [facility] Final Result documented in this encounter Visit Diagnoses Not on filedocumented in this encounter Care Teams Cardroom Attendant Relationship Specialty Start Date End Date Christiano Peguero MD [address] [place] [address] PCP - General Family Medicine 10/09/22 Christiano Peguero MD [address] [place] [address] PCP - [facility] 05/20/23 06/17/65 documented as of this encounter
--- OUTSIDE RECORDS SUMMARY | 2024-07-30 10:14 | XMS_ITS | Encounter Summary ---
Author Organization [facility] Address [address] [place] [address] Care Team Providers Care Supervisor Floor Assembly Name Role Phone Christiano Peguero MD Primary Care Provider [phone] Christiano Peguero MD Unavailable Encounter Details Date Type Department Care Team (Late st Contact Info) Description 12/27/2022 Clinisync Result Encounter NOMS External Department Unsolicited [...] Procedure Name Priority Date/Time Associated Diagnosis Comments XR LUMBAR SPINE 6V W BENDING 12/27/2022 11:37 PM EST documented in this encounter Results * XR LUMBAR SPINE 6V W BENDING (12/27/2022 11:37 PM EST) Anatomical Region Laterality Modality Other 12/27/2022 11:3 7 PM EST Narrative 12/27/2022 11:37 PM EST The [address] [address] XRay Report Signed Patient: OLAF BRIONES MR#: [id number] : 1945 Acct:[id number] Age/Sex: 77 / M ADM Date: 12/27/22 Loc: RAD Attending Dr: David Scruggs NP Ordering Physician: David Scruggs NP Date of Service: 12/27/22 Procedure(s): XR lumbar spine 6V w bending Accession Number(s): [id number] cc: CHRISTIANO PEGUERO Anna NP The [place] [id number] Patient Name: OLAF RBIONES MRN: [id number] date: 1945 Sex: M Assigned Patient Location: RAD Current Patient Location: [facility] Accession/Order Number: [id number] Exam Date: 12/27/2022 15:20 Report Date: 12/27/2022 23:37 At the request of: DAVID SCRUGGS Procedure: XR lumbar spine 6V w bending EXAM: XR lumbar spine 6V w bending HISTORY: low back pain COMPARISON: None. TECHNIQUE: 7 views lumbar spine with flexion and extension FINDINGS: There are 5 lumbar type vertebral bodies. No pars defects. Grade 1 anterolisthesis at L4-5. No significant change in anterolisthesis on dynamic imaging. Vertebral body heights are maintained. Multilevel degenerative disc disease most severe at L4-5 and L5-S1. Facet arthrosis is most notable at L4-5 and L5-S1. Incidental note of aortic vascular calcification. Degenerative changes of the sacroiliac joints. XR/XR lumbar spine 6V w bending IMPRESSION: Grade 1 anterolisthesis at L4-5 without significant change on dynamic imaging. Multilevel degenerative disc disease most severe at L4-5 and L5-S1 with facet arthrosis at these levels. Electronically authenticated by: JUSTIN SCOTT Date: 12/27/2022 23:37 Dictated By: Justin Scott M.D. Signed By: 12/27/222338 DD/ 36 TD/TT: Equipment Sterilizer: Procedure Note Radiology, Radiologist, MD - 12/28/[address] [address] XRay Report Signed Patient: OLAF BRIONES WMR#: [id number] : 1945cct:[id number] Age/Sex: 77 / MADM Date: 12/27/22 Loc: ILIA Attending Dr: David Scruggs NP Ordering Physician: David Scruggs NP Date of Service: 12/27/22 Procedure(s): XR lumbar spine 6V w bending Accession Number(s): [id number] cc: CHRISTIANO PEGUERO ; David Scruggs LIGHT BULB TESTER [place] [address] Patient Name: OLAF BRIONES MRN: [facility]:[id number] date: 1945 Sex: M Assigned Patient Location: [facility] Current Patient Location: [facility] Accession/Order Number: [id number] Exam Date: 12/27/2022 15:20 Report Date: 12/27/2022 23:37 At the request of: DAVID SCRUGGS Procedure: XR lumbar spine 6V w bending EXAM: XR lumbar spine 6V w bending HISTORY: low back pain COMPARISON: None. TECHNIQUE: 7 views lumbar spine with flexion and extension FINDINGS: There are 5 lumbar type vertebral bodies. No pars defects. Grade1 anterolisthesis at L4-5. No significant change in anterolisthesis ondynamic imaging. Vertebral body heights are maintained. Multilevel degenerativedisc disease most severe at L4-5 and L5-S1. Facet arthrosis is most notable atL4-5 and L5-S1. Incidental note of aortic vascular calcification. Degenerative changes of the sacroiliac joints. XR/XR lumbar spine 6V w bending IMPRESSION: Grade 1 anterolisthesis at L4-5 without significant change on dynamicimaging. Multilevel degenerative disc disease most severe at L4-5 and L5-S1 withfacet arthrosis at these levels. Electronically authenticated by: JUSTIN SCOTT Date: 12/27/2022 23:37 Dictated By: Justin Scott M.D. Signed By:12/27/222338 DD/ 36 TD/TT: Equipment Sterilizer: Generic External Data Provider [facility] Final Result documented in this encounter Visit Diagnoses Not on filedocumented in this encounter Care Teams Supervisor Floor Assembly Relationship Specialty Start Date End Date Christiano Peguero MD [address] [place] [address] [address] PCP - General Family Medicine 10/09/22 Christiano Peguero MD [address] [place] [address] [address] [facility] 05/20/23 06/17/65 documented as of this encounter
--- OUTSIDE RECORDS SUMMARY | 2024-07-30 10:14 | XMS_ITS | Encounter Summary ---
Author Organization [facility] Address [address] [place] [address] Care Team Providers Care Network Operations Technician Name Role Phone Christiano Peguero MD Primary Care Provider [phone] Christiano Peguero MD Unavailable Encounter Details Date Type Department Care Team (Late st Contact Info) Description 06/11/2023 Clinisync Result Encounter NOMS External Department Unsolicited Christiano Peguero MD [address] [facility] 110 [place] [address] Social History Tobacco Use Types [...] Procedure Name Priority Date/Time Associated Diagnosis Comments NM TARA PERF SPECT REST STR 06/11/2023 1:27 PM EDT documented in this encounter Results * NM TARA PERF SPECT REST STR (06/11/2023 1:27 PM EDT) Anatomical Region Laterality Modality Other 06/11/2023 1:27 PM EDT Narrative 06/11/2023 1:28 PM EDT The [address] [address] Nuclear Medicine Report Signed Patient: OLAF BRIONES MR#: [id number] : 1945 Acct:[id number] Age/Sex: 77 / M ADM Date: 06/11/23 Loc: NM Attending Dr: CHRISTIANO PEGUERO Ordering Physician: CHRISTIANO PEGUERO Date of Service: 06/11/23 Procedure(s): NM tara perf SPECT rest str Accession Number(s): [id number] cc: CHRISTIANO PEGUERO Patient Name: OLAF BRIONES MR#: [id number] : 1945 Exam Date: 06/11/2023 Ordering Doctor: DR CHRISTIANO PEGUERO M.D. RADIOLOGY REPORT PROCEDURE: NM TARA PERF SPECT REST STR COMPARISON: None. INDICATIONS: CHEST PAIN, CORONARY ARTERY DISEASE TECHNIQUE: Exam Description: Stress/Rest one day protocol gated SPECT Rest Imagin.3 mCi Tc-99m Cardiolite IV on 06/11/2023 Stress Imaging 30.2 mCi Tc-99m Cardiolite IV on 06/11/2023 Exercise Protocol: Ivan Heart Rate (bpm): Rest: 70 Max: 134 PMHR: 93 Blood Pressure: Rest: 168/82 Max: 192/86 Exercise Time: Minutes: 4 Seconds: 24 Stage Reached: Stage: 2 Mets 7.0 Symptoms: Rest and peak stress ECG findings were abnormal and the exercise portion of the study was abnormal per attending physician Dr. Tucker due to EKG changes. For more details please see separate cardiac stress test report. FINDINGS: QUALITY OF STUDY: PERFUSION DEFECT: LOCATION: Basal inferoseptal. Basal inferior. SIZE: Small (1-2 segments). SEVERITY: Mild. TYPE: Persistent. WALL MOTION: Normal. LV SIZE: Normal. 106 mL. TID / TCD: None; 0.9 LVEF: Normal. Calculated EF 61%. SUMMARY: Myocardial perfusion imaging study has ABNORMAL findings. CONCLUSION: 1. Small fixed area of mildly decreased uptake in the inferior wall, RCA distribution on stress images with no evidence of reversibility 2. Abnormal exercise test secondary to EKG changes Dictated by: Amrik Dubose MD on 06/11/2023 at 13:24 Approved by: Amrik Dubose MD on 06/11/2023 at 13:27 Dictated By: Amrik Dubose M.D. Signed By: 06/11/23 1328 DD/ 1327 TD/TT: Financial Agent: Procedure Note Radiology, Radiologist, - 06/12/2023 [place] [address] Nuclear Medicine Report Signed Patient: OLAF BRIONES WMR#: [id number] : 1945cct:[id number] Age/Sex: 77 / MADM Date: 06/11/23 Loc: NM Attending Dr: CHRISTIANO PEGUERO Ordering Physician: CHRISTIANO PEGUERO Date of Service: 06/11/23 Procedure(s): NM tara perf SPECT rest str Accession Number(s): [id number] cc: RAMAN PEGUERODEV Patient Name: OLAF BRIONES MR#: [id number] : 1945 Exam Date: 06/11/2023 Ordering Doctor: DR CHRISTIANO PEGUERO M.D. RADIOLOGY REPORT PROCEDURE: NM TARA PERF SPECT REST STR COMPARISON: None. INDICATIONS: CHEST PAIN, CORONARY ARTERY DISEASE TECHNIQUE: Exam Description: Stress/Rest one day protocol gated SPECT Rest Imagin.3 mCi Tc-99m Cardiolite IV on 06/11/2023 Stress Imaging 30.2 mCi Tc-99m Cardiolite IV on 06/11/2023 Exercise Protocol: Ivan Heart Rate (bpm): Rest: 70 Max: 134 PMHR: 93 Blood Pressure: Rest: 168/82 Max: 192/86 Exercise Time: Minutes: 4 Seconds: 24 Stage Reached: Stage: 2 Mets 7.0 Symptoms: Rest and peak stress ECG findings were abnormal and the exercise portionof the study was abnormal per attending physician Dr. Tucker due to EKGchanges. For more details please see separate cardiac stress test report. FINDINGS: QUALITY OF STUDY: PERFUSION DEFECT: LOCATION: Basal inferoseptal. Basal inferior. SIZE: Small (1-2 segments). SEVERITY: Mild. TYPE: Persistent. WALL MOTION: Normal. LV SIZE: Normal. 106 mL. TID / TCD: None; 0.9 LVEF: Normal. Calculated EF 61%. SUMMARY: Myocardial perfusion imaging study has ABNORMAL findings. CONCLUSION: 1. Small fixed area of mildly decreased uptake in the inferior wall, RCA distribution on stress images with no evidence of reversibility 2. Abnormal exercise test secondary to EKG changes Dictated by: Amrik Dubose MD on 06/11/2023 at 13:24 Approved by: Amrik Dubose MD on 06/11/2023 at 13:27 Dictated By: Amrik Dubose M.D. Signed By:06/11/23 1328 DD/ 1327 TD/TT: Financial Agent: us Christiano Peguero MD [facility] Final Result documented in this encounter Visit Diagnoses Not on filedocumented in this encounter Care Teams Network Operations Technician Relationship Specialty Start Date End Date Christiano Peguero MD [address] [facility] 110 [place] [address] PCP - General Family Medicine 10/09/22 Christiano Peguero MD [address] [facility] 110 [place] [address] PCP - [facility] 05/20/23 06/17/65 documented as of this encounter
--- OUTSIDE RECORDS SUMMARY | 2024-07-30 10:14 | XMS_ITS | Encounter Summary ---
Author Organization [facility] Address [address] [place] [address] Care Team Providers Care Willow Machine Operator Name Role Phone Christiano Peguero MD Primary Care Provider [phone] Christiano Peguero MD Unavailable Encounter Details Date [...] Name Priority Date/Time Associated Diagnosis Comments XR CHEST 2V 09/13/2023 6:19 PM EDT documented in this encounter Results * XR CHEST 2V (09/13/2023 6:19 PM EDT) Anatomical Region Laterality Modality Other 09/13/2023 6:19 PM EDT Narrative 09/13/2023 6:21 PM EDT The [address] [address] XRay Report Signed Patient: OLAF BRIONES MR#: [id number] : 1945 Acct:[id number] Age/Sex: 78 / M ADM Date: 09/13/23 Loc: CARD Attending Dr: Eliana-Staff Physician Villatoro Ordering Physician: Sisi Martinez M.D. Date of Service: 09/13/23 Procedure(s): XR chest 2V Accession Number(s): [id number] cc: CHRISTIANO PEGUERO ; PhysicianSisi M.D. The [address] [address] Patient Name: OLAF BRIONES MRN: [id number] date: 1945 Sex: M Assigned Patient Location: CARD Current Patient Location: CARD Accession/Order Number: [id number] Exam Date: 09/13/2023 08:42 Report Date: 09/13/2023 18:19 At the request of: NON-STAFF PHYSICIAN Procedure: XR chest 2V EXAM: XR chest 2V HISTORY: Hypertension, Shortness Of Breath COMPARISON: None. TECHNIQUE: Upright PA and lateral chest x-ray FINDINGS: The heart is not enlarged and the vasculature is not distended. No acute infiltrate, effusion or pneumothorax is identified. The osseous structures are grossly intact. XR/XR chest 2V IMPRESSION: No acute infiltrate or evidence of cardiac decompensation. Electronically authenticated by: DOMINGUEZ WEIR Date: 09/13/2023 18:19 Dictated By: Dominguez Weir M.D. Signed By: 09/13/231820 DD/ 18 TD/TT: Air Traffic Systems Technician: Procedure Note Radiology, Radiologist, MD - 09/16/2023 [place] [address] XRay Report Signed Patient: OLAF BRIONES WMR#: [id number] : 1945cct:[id number] Age/Sex: 78 / MADM Date: 09/13/23 Loc: CARD Attending Dr: Non-Staff Physician Villatoro Ordering Physician: Sisi Martinez M.D. Date of Service: 09/13/23 Procedure(s): XR chest 2V Accession Number(s): [id number] cc: CHRISTIANO PEGUERO ; PhysicianSisi M.D. The [address] [address] Patient Name: OLAF BRIONES MRN: [facility]:[id number] date: 1945 Sex: M Assigned Patient Location: CARD Current Patient Location: CARD Accession/Order Number: [id number] Exam Date: 09/13/2023 08:42 Report Date: 09/13/2023 18:19 At the request of: NON-STAFF PHYSICIAN Procedure: XR chest 2V EXAM: XR chest 2V HISTORY: Hypertension, Shortness Of Breath COMPARISON: None. TECHNIQUE: Upright PA and lateral chest x-ray FINDINGS: The heart is not enlarged and the vasculature is not distended.No acute infiltrate, effusion or pneumothorax is identified. The osseous structures are grossly intact. XR/XR chest 2V IMPRESSION: No acute infiltrate or evidence of cardiac decompensation. Electronically authenticated by: DOMINGUEZ WEIR Date: 09/13/2023 18:19 Dictated By: Dominguez Weir M.D. Signed By:09/13/231820 DD/ 18 TD/TT: Air Traffic Systems Technician: Generic External Data Provider [facility] Final Result documented in this encounter Visit Diagnoses Not on filedocumented in this encounter Additional Health Concerns Assessment Noted Time PHQ-9 Depression Total Score: 9 06/18/19 24 11:06 AM EDT documented as of this encounter Care Teams Willow Machine Operator Relationship Specialty Start Date End Date Christiano Peguero MD 112 [facility] 110 [place] [address] PCP - General Family Medicine 10/09/22 Christiano Peguero MD [address] [facility] 110 [place] [address] [address] - [facility] 05/20/23 06/17/65 documented as of this encounter
--- OUTSIDE RECORDS SUMMARY | 2024-07-30 10:14 | XMS_ITS | Encounter Summary ---
Author Organization [facility] Address [address] [facility] [place] [address] Care Team Providers Care Project Management Analyst Name Role Phone Christiano Coppola MD Primary Care Provider [phone] Christiano Coppola MD Unavailable Encounter Details Date Type Department Care Team (Late st Contact Info) Description 02/13/2023 Abstract [facility] [address] [facility] 110 [place] [phone] Christiano Coppola MD [address] [facility] 110 [place] [address] Social History Tobacco Use Types Packs/Day Years [...] on filedocumented in this encounter Care Teams Project Management Analyst Relationship Specialty Start Date End Date Christiano Coppola MD [address] [facility] 110 [place] [address] PCP - General Family Medicine 10/09/22 Christiano Coppola MD [address] [facility] 110 [place] [address] PCP - [facility] 05/20/23 06/17/65 documented as of this encounter
--- OUTSIDE RECORDS SUMMARY | 2024-07-30 10:14 | XMS_ITS | Encounter Summary ---
Author Organization [facility] Address [address] [facility] [place] [address] Care Team Providers Care Fleet Director Name Role Phone Christiano Coppola MD Primary Care Provider [phone] Christiano Coppola MD Unavailable Encounter Details Date Type Department Care Team (Late st Contact Info) Description 02/13/2023 Abstract [facility] FM [address] [facility] 110 [place] [phone] Christiano Coppola MD [address] [facility] 110 [place] [address] Social History Tobacco Use Types Packs/Day Years [...] on filedocumented in this encounter Care Teams Fleet Director Relationship Specialty Start Date End Date Christiano Coppola MD [address] [facility] 110 [place] [address] PCP - General Family Medicine 10/09/22 Christiano Coppola MD [address] [facility] 110 [place] [address] PCP - [facility] 05/20/23 06/17/65 documented as of this encounter
--- OUTSIDE RECORDS SUMMARY | 2024-07-30 10:14 | XMS_ITS | Encounter Summary ---
Author Organization [facility] Address [address] [place] [address] Care Team Providers Care Superintendent Laundry Name Role Phone Christiano Coppola MD Primary Care Provider [phone] Christiano Coppola MD Unavailable Encounter Details Date Type Department Care Team (Late st Contact Info) Description 03/13/2024 Abstract [facility] FM 112 [facility] 110 [place] [phone] Christiano Coppola MD [address] [facility] 110 [place] [address] Social History Tobacco Use Types Packs/Day Years [...] documented as of this encounter Care Teams Superintendent Laundry Relationship Specialty Start Date End Date Christiano Coppola MD [address] [facility] 110 [place] [address] PCP - General Family Medicine 10/09/22 Christiano Coppola MD [address] [facility] 110 [place] [address] PCP - [facility] 05/20/23 06/17/65 documented as of this encounter
--- OUTSIDE RECORDS SUMMARY | 2024-07-30 10:14 | XMS_ITS | Encounter Summary ---
Author Organization [facility] Address [address] [facility] [place] [address] Care Team Providers Care Blankbook Forwarder Name Role Phone Christiano Coppola MD Primary Care Provider [phone] Christiano Coppola MD Unavailable Encounter Details Date Type Department Care Team (Late st Contact Info) Description 10/09/2022 Abstract [facility] [address] [facility] 110 [place] [id number] Christiano Coppola MD [address] [facility] 110 [place] [address] Social History Tobacco Use Types Packs/Day Years [...] on filedocumented in this encounter Care Teams Blankbook Forwarder Relationship Specialty Start Date End Date Christiano Coppola MD [address] [facility] 110 [place] [address] PCP - General Family Medicine 10/09/22 Christiano Coppola MD [address] [facility] 110 [place] [address] PCP - [facility] 05/20/23 06/17/65 documented as of this encounter
--- OUTSIDE RECORDS SUMMARY | 2024-07-30 10:14 | XMS_ITS | Encounter Summary ---
Author Organization [facility] Address [address] [facility] [place] [address] Care Team Providers Care Cigar Sorter Name Role Phone Christiano Coppola MD Primary Care Provider [phone] Christiano Coppola MD Unavailable Encounter Details Date Type Department Care Team (Late st Contact Info) Description 12/27/2022 Abstract [facility] FM [address] [facility] [address] [place] [id number] Christiano Coppola MD [address] [facility] 110 [place] [address] Social History Tobacco Use Types Packs/Day Years [...] on filedocumented in this encounter Care Teams Cigar Sorter Relationship Specialty Start Date End Date Christiano Coppola MD [address] [facility] 110 [place] [address] PCP - General Family Medicine 10/09/22 Christiano Coppola MD [address] [facility] 110 [place] [address] PCP - [facility] 05/20/23 06/17/65 documented as of this encounter
--- OUTSIDE RECORDS SUMMARY | 2024-07-30 10:14 | XMS_ITS | Encounter Summary ---
Author Organization [facility] Address [address] [place] [address] Care Team Providers Care Advertising Operations Coordinator Name Role Phone Christiano Peguero MD Primary Care Provider [phone] Christiano Peguero MD Unavailable Encounter Details Date [...] Procedure Name Priority Date/Time Associated Diagnosis Comments CA ECHO DOPPLER COMPLETE 09/13/2023 3:04 PM EDT documented in this encounter Results * CA ECHO DOPPLER COMPLETE (09/13/2023 3:04 PM EDT) Anatomical Region Laterality Modality Other 09/13/2023 3:04 PM EDT Narrative 09/13/2023 3:05 PM EDT The [address] [address] Cardiology Report Signed Patient: OLAF BRIONES MR#: [id number] : 1945 Acct:[id number] Age/Sex: 78 / M ADM Date: 09/13/23 Loc: CARD Attending Dr: Non-Staff Physician Villatoro Ordering Physician: Sisi Martinez M.D. Date of Service: 09/13/23 Procedure(s): CA echo doppler complete Accession Number(s): [id number] cc: CHRISTIANO PEGUERO ; Physician,Non-Staff Irving Patient Name: OLAF BRIONES MR#: [id number] : 1945 Exam Date: 09/13/2023 Ordering Doctor: Non-Staff Physician ECHOCARDIOGRAM REPORT PROCEDURE: CA ECHO DOPPLER COMPLETE INDICATIONS: Hypertension, Coronary artery disease, shortness of breath COMPARISON: None. DESCRIPTION: COMPLETE ECHOCARDIOGRAM Real-time transthoracic echocardiography with 2D, M-mode, spectral and color flow Doppler performed. QUALITY: Technical quality was good. LEFT VENTRICLE: Normal chamber size. Proximal septal hypertrophy (sigmoid septum). LV EF: Global left ventricular systolic function is low normal limits; visually estimated ejection fraction is 50 to 55%. Abnormal septal motion: this may be related to bundle branch block. DIASTOLIC: Diastolic function is indeterminate. ATRIAL SEPTUM: Visually appears intact. LEFT ATRIUM: Moderate dilatation. RIGHT ATRIUM: Normal chamber size. RIGHT VENTRICLE: Normal chamber size. Normal right ventricular systolic function. TRICUSPID VALVE: Normal mobility and thickness. No stenosis with mild regurgitation. No evidence of pulmonary hypertension. RVSP 29 mmHg MITRAL VALVE: Normal mobility and thickness. No evidence of mitral valve stenosis. There is no mitral annular calcification. Trivial mitral regurgitation. AORTIC VALVE: Normal trileaflet appearance. Mild calcification. Normal leaflet mobility. No evidence of aortic valve stenosis. No aortic regurgitation. AORTIC ROOT: Normal diameter and appearance. PULMONIC VALVE: Normal thickness and mobility. No stenosis. No regurgitation. PERICARDIUM: Anterior free space; trivial effusion versus fat pad. IVC: Collapses with inspirations. IVC is normal in size. CONCLUSION: 1. Global left ventricular systolic function is lower normal limits; visually estimated ejection fraction is 50 to 55% 2. The right ventricle is normal in size and systolic function 3. The left atrium is moderately dilated 4. Diastolic function is indeterminate 5. Mild tricuspid regurgitation 6. Anterior free space; trivial effusion versus fat pad Adult Echocardiography Procedure Report Left Ventricle LVEDD (3.7 - 5.6 cm): 5.06 cm LVESD (2.2 - 4.0 cm): 4.04 cm LVIVS thickness (0.6 - 1.2 cm): 1.12 cm LVPW thickness (0.5 - 1.0 cm): 1.02 cm e': 0.11 m/s E - e': 5.98 LVOT Max Gradient: 1.63 mm[Hg] LVOT Area (cm2): 0.64 m/s Peak Velocity (LVOT): 0.64 m/s Mean Velocity (LVOT): 0.50 m/s LVOT Diameter 2.28 cm Left Atrium LA Volume Index (2D A2C): 40.94 ml/m2 Left Atrium Systolic Dimension: 3.85 cm Mitral Valve MV E to A Ratio: 0.93 Mitral Valve A-Wave Peak Velocity: 0.70 m/s Mitral Valve E-Wave Peak Velocity: 0.65 m/s Right Ventricle Aorta AO Root Diam: 3.46 cm Ascending Ao Diam: 2.63 cm Aortic Valve AoV Area (Peak Spencer): 1.82 cm2, 1.82 cm2 AoV Area (VTI): 2.07 cm2, 2.07 cm2 Peak Velocity(Antegrade Flow): 1.43 m/s Peak Gradient(Antegrade Flow): 8.15 mm[Hg] Mean Velocity(Antegrade Flow): 0.96 m/s Mean Gradient(Antegrade Flow): 4.22 mm[Hg] Velocity Time Integral: 36.76 cm Tricuspid Valve Peak Velocity (Regurgitant Flow): 2.56 m/s, 2.39 m/s Pulmonic Valve Mean Gradient: 2.41 mm[Hg] Mean Velocity: 0.72 m/s Peak Velocity: 1.07 m/s, 1.04 m/s Peak Gradient: 4.32 mm[Hg], 4.56 mm[Hg] Right Atrium Right Atrium Systolic Pressure: 29.13 ml, 29.13 ml Dictated by: Ceci Shelton M.D. on 09/13/2023 at 15:00 Approved by: Ceci Shelton M.D. on 09/13/2023 at 15:04 Dictated By: Ceci Shelton M.D. Signed By: 09/13/23 1505 DD/ 1504 TD/TT: Flying I Instructor: Procedure Note Radiology, Radiologist, - 09/13/2023 [place] [address] Cardiology Report Signed Patient: OLAF BRIONES WMR#: [id number] : 1945cct:[id number] Age/Sex: 78 / MADM Date: 09/13/23 Loc: CARD Attending Dr: Non-Staff Physician Irving Ordering Physician: Sisi Martinez M.D. Date of Service: 09/13/23 Procedure(s): CA echo doppler complete Accession Number(s): [id number] cc: CHRISTIANO PEGUERO ; Sisi Martinez M.D. Patient Name: OLAF BRIONES MR#: [id number] : 1945 Exam Date: 09/13/2023 Ordering Doctor: Non-Staff Physician ECHOCARDIOGRAM REPORT PROCEDURE: CA ECHO DOPPLER COMPLETE INDICATIONS: Hypertension, Coronary artery disease, shortness ofbreath COMPARISON: None. DESCRIPTION: COMPLETE ECHOCARDIOGRAM Real-time transthoracic echocardiography with 2D, M-mode, spectral and color flow Dopplerperformed. QUALITY: Technical quality was good. LEFT VENTRICLE: Normal chamber size. Proximal septal hypertrophy(sigmoid septum). LV EF: Global left ventricular systolic function is low normal limits; visually estimated ejection fraction is 50 to 55%. Abnormal septalmotion: this may be related to bundle branch block. DIASTOLIC: Diastolic function is indeterminate. ATRIAL SEPTUM: Visually appears intact. LEFT ATRIUM: Moderate dilatation. RIGHT ATRIUM: Normal chamber size. RIGHT VENTRICLE: Normal chamber size. Normal right ventricularsystolic function. TRICUSPID VALVE: Normal mobility and thickness. No stenosis with mild regurgitation. No evidence of pulmonary hypertension. RVSP 29 mmHg MITRAL VALVE: Normal mobility and thickness. No evidence of mitralvalve stenosis. There is no mitral annular calcification. Trivial mitral regurgitation. AORTIC VALVE: Normal trileaflet appearance. Mild calcification.Normal leaflet mobility. No evidence of aortic valve stenosis. No aortic regurgitation. AORTIC ROOT: Normal diameter and appearance. PULMONIC VALVE: Normal thickness and mobility. No stenosis. No regurgitation. PERICARDIUM: Anterior free space; trivial effusion versus fat pad. IVC: Collapses with inspirations. IVC is normal in size. CONCLUSION: 1. Global left ventricular systolic function is lower normal limits;visually estimated ejection fraction is 50 to 55% 2. The right ventricle is normal in size and systolic function 3. The left atrium is moderately dilated 4. Diastolic function is indeterminate 5. Mild tricuspid regurgitation 6. Anterior free space; trivial effusion versus fat pad Adult Echocardiography Procedure Report Left Ventricle LVEDD (3.7 - 5.6 cm): 5.06 cm LVESD (2.2 - 4.0 cm): 4.04 cm LVIVS thickness (0.6 - 1.2 cm): 1.12 cm LVPW thickness (0.5 - 1.0 cm): 1.02 cm e': 0.11 m/s E - e': 5.98 LVOT Max Gradient: 1.63 mm[Hg] LVOT Area (cm2): 0.64 m/s Peak Velocity (LVOT): 0.64 m/s Mean Velocity (LVOT): 0.50 m/s LVOT Diameter 2.28 cm Left Atrium LA Volume Index (2D A2C): 40.94 ml/m2 Left Atrium Systolic Dimension: 3.85 cm Mitral Valve MV E to A Ratio: 0.93 Mitral Valve A-Wave Peak Velocity: 0.70 m/s Mitral Valve E-Wave Peak Velocity: 0.65 m/s Right Ventricle Aorta AO Root Diam: 3.46 cm Ascending Ao Diam: 2.63 cm Aortic Valve AoV Area (Peak Spencer): 1.82 cm2, 1.82 cm2 AoV Area (VTI): 2.07 cm2, 2.07 cm2 Peak Velocity(Antegrade Flow): 1.43 m/s Peak Gradient(Antegrade Flow): 8.15 mm[Hg] Mean Velocity(Antegrade Flow): 0.96 m/s Mean Gradient(Antegrade Flow): 4.22 mm[Hg] Velocity Time Integral: 36.76 cm Tricuspid Valve Peak Velocity (Regurgitant Flow): 2.56 m/s, 2.39 m/s Pulmonic Valve Mean Gradient: 2.41 mm[Hg] Mean Velocity: 0.72 m/s Peak Velocity: 1.07 m/s, 1.04 m/s Peak Gradient: 4.32 mm[Hg], 4.56 mm[Hg] Right Atrium Right Atrium Systolic Pressure: 29.13 ml, 29.13 ml Dictated by: Ceci Shelton M.D. on 09/13/2023 at 15:00 Approved by: Ceci Shelton M.D. on 09/13/2023 at 15:04 Dictated By: Ceci Shelton M.D. Signed By:09/13/23 1505 DD/ 1504 TD/TT: Flying I Instructor: us Generic External Data Provider [facility] Final Result documented in this encounter Visit Diagnoses Not on filedocumented in this encounter Additional Health Concerns Assessment Noted Time PHQ-9 Depression Total Score: 9 06/18/19 24 11:06 AM EDT documented as of this encounter Care Teams Advertising Operations Coordinator Relationship Specialty Start Date End Date Christiano Peguero MD [address] [facility] 110 [place] [address] PCP - General Family Medicine 10/09/22 Christiano Peguero MD [address] [facility] 110 [place] [address] PCP - [facility] 05/20/23 06/17/65 documented as of this encounter
--- OUTSIDE RECORDS SUMMARY | 2024-07-30 10:14 | XMS_ITS | Encounter Summary ---
Author Organization [facility] Address [address] [place] [address] Care Team Providers Care Water Maintenance Supervisor Name Role Phone Christiano Peguero MD Primary Care Provider [phone] Christiano Peguero MD Unavailable Encounter Details Date Type Department Care Team (Late st Contact Info) Description 01/17/2023 Clinisync Result Encounter [facility] External Department Unsolicited [...] Procedure Name Priority Date/Time Associated Diagnosis Comments MR LUMBAR SPINE WO CON 01/17/2023 12:22 PM EST documented in this encounter Results * MR LUMBAR SPINE WO CON (01/17/2023 12:22 PM EST) Anatomical Region Laterality Modality Other 01/17/2023 12:2 2 PM EST Narrative 01/17/2023 12:22 PM EST The [address] [address] Magnetic Resonance Report Signed Patient: OLAF BRIONES MR#: [id number] : 1945 Acct:[id number] Age/Sex: 77 / M ADM Date: 01/17/23 Loc: MRI Attending Dr: David Scruggs NP Ordering Physician: David Scruggs NP Date of Service: 01/17/23 Procedure(s): MR lumbar spine wo con Accession Number(s): [id number] cc: CHRISTIANO PEGUERO Anna NP [address], [place] [address] Patient Name: OLAF BRIONES MRN: [id number] date: 1945 Sex: M Assigned Patient Location: MRI Current Patient Location: MRI Accession/Order Number: [id number] Exam Date: 01/17/2023 11:00 Report Date: 01/17/2023 12:22 At the request of: DAVID SCRUGGS Procedure: MR lumbar spine wo con MR lumbar spine wo con, 01/17/2023 11:00 AM EST INDICATION: Lumbar Stenosis COMPARISON: Prior x-ray dated 12/27/2022 TECHNIQUE: Multiplanar, multisequential MRI images of lumbar spine were obtained without contrast. FINDINGS: For dictation purposes, the lowest complete disc space in the lumbar spine considered as L5-S1. There is grade 1 anterolisthesis of L4 on L5. There is signal abnormality on T1 and T2-weighted images in the vertebral bodies of visualized spine that may suggest bone marrow reconversion in appropriate clinical setting. Bilateral renal lesions with T2 prolongation not fully characterized by this study and statistically may suggest simple renal cyst. There is normal physiologic lumbar lordosis. The vertebral height is preserved. The conus medullaris is at the level of L1. No signal abnormality within the visualized spinal cord is noted. No neural foraminal narrowing or canal stenoses at the level of T12-L1 is noted. At the level of L1-L2, there are disc bulge with mild right and moderate left neuroforaminal narrowing and no canal stenosis. At the level of L2-L3, there are disc bulge with mild bilateral neuroforaminal narrowing and mild canal stenosis. At the level of L3-4, there are disc bulge with moderate right and mild left neuroforaminal narrowing and severe canal stenosis. There is ligamentum flavum thickening and facet joint arthrosis at this level. At the level of L4-5, there are grade 1 anterolisthesis uncovering disc with moderate bilateral neuroforaminal narrowing and severe canal stenosis. There is ligamentum flavum thickening and facet joint arthrosis at this level. At the level of L5-S1, there are disc bulge with no neuroforaminal narrowing and no canal stenosis. The paraspinal muscles are unremarkable. There is a sclerotic lesion in the left iliac bone not fully characterized by this study likely a bone island. 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 Electronically authenticated by: DARIO VELÁSQUEZ Date: 01/17/2023 12:22 Dictated By: Dario Velásquez M.D. Signed By: 01/17/23 1225 DD/ 1222 TD/TT: Pbx Repairer: Procedure Note Radiology, Radiologist, MD - 01/17/2023 [place] [address] Magnetic Resonance Report Signed Patient: OLAF BRIONES WMR#: [id number] : 1945cct:[id number] Age/Sex: 77 / MADM Date: 01/17/23 Loc: MRI Attending Dr: David Scruggs RECORD FILING CLERK Ordering Physician: David Scruggs NP Date of Service: 01/17/23 Procedure(s): MR lumbar spine wo con Accession Number(s): [id number] cc: CHRISTIANO PEGUERO ; David Scruggs NP [place] [address] Patient Name: OLAF BRIONES MRN: [id number] date: 1945 Sex: M Assigned Patient Location: MRI Current Patient Location: MRI Accession/Order Number: [id number] Exam Date: 01/17/2023 11:00 Report Date: 01/17/2023 12:22 At the request of: DAVID SCRUGGS Procedure: MR lumbar spine wo con MR lumbar spine wo con, 01/17/2023 11:00 AM EST INDICATION: Lumbar Stenosis COMPARISON: Prior x-ray dated 12/27/2022 TECHNIQUE: Multiplanar, multisequential MRI images of lumbar spine were obtained without contrast. FINDINGS: For dictation purposes, the lowest complete disc space in the lumbar spine considered as L5-S1. There is grade 1 anterolisthesis of L4 on L5. There is signal abnormality on T1 and T2-weighted images in the vertebral bodies of visualized spine that may suggest bone marrow reconversion in appropriate clinical setting. Bilateral renal lesions with T2 prolongation not fully characterized bythis study and statistically may suggest simple renal cyst. There is normal physiologic lumbar lordosis. The vertebral height is preserved. The conus medullaris is at the level of L1. No signal abnormality withinthe visualized spinal cord is noted. No neural foraminal narrowing or canal stenoses at the level of T12-L1 is noted. At the level of L1-L2, there are disc bulge with mild right and moderateleft neuroforaminal narrowing and no canal stenosis. At the level of L2-L3, there are disc bulge with mild bilateralneuroforaminal narrowing and mild canal stenosis. At the level of L3-4, there are disc bulge with moderate right and mildleft neuroforaminal narrowing and severe canal stenosis. There is ligamentumflavum thickening and facet joint arthrosis at this level. At the level of L4-5, there are grade 1 anterolisthesis uncovering discwith moderate bilateral neuroforaminal narrowing and severe canal stenosis.There is ligamentum flavum thickening and facet joint arthrosis at this level. At the level of L5-S1, there are disc bulge with no neuroforaminalnarrowing and no canal stenosis. The paraspinal muscles are unremarkable. There is a sclerotic lesion inthe left iliac bone not fully characterized by this study likely a boneisland. MR/MR lumbar spine wo con IMPRESSION: Moderate to severe degenerative changes of lumbar spine in particular atL3-L4 and L4-L5. Electronically authenticated by: DARIO VELÁSQUEZ Date: 01/17/2023 12:22 Dictated By: Dario Velásquez M.D. Signed By:01/17/23 1225 DD/ 1222 TD/TT: Pbx Repairer: Generic External Data Provider [facility] Final Result documented in this encounter Visit Diagnoses Not on filedocumented in this encounter Care Teams Water Maintenance Supervisor Relationship Specialty Start Date End Date Christiano Peguero MD [address] [address] PCP - General Family Medicine 10/09/22 Christiano Peguero MD [address] [address] [facility] 05/20/23 06/17/65 documented as of this encounter
--- OUTSIDE RECORDS SUMMARY | 2024-07-30 10:14 | XMS_ITS | Encounter Summary ---
Author Organization [facility] Address [address] [place] [address] Care Team Providers Care Product Introduction Manager Name Role Phone Christiano Peguero MD Primary Care Provider [phone] Christiano Peguero MD Unavailable Encounter Details Date Type Department Care Team (Late st Contact Info) Description 11/29/2023 Clinisync Result Encounter [facility] External Department Unsolicited [...] Name Priority Date/Time Associated Diagnosis Comments XR ABDOMEN 1V 11/29/2023 4:56 AM EDT documented in this encounter Results * XR ABDOMEN 1V (11/29/2023 4:56 AM EDT) Anatomical Region Laterality Modality Other 11/29/2023 4:56 AM EDT Narrative 11/29/2023 4:59 AM EDT The [address] [address] XRay Report Signed Patient: OLAF BRIONES MR#: [id number] : 1945 Acct:[id number] Age/Sex: 78 / M ADM Date: 11/28/23 Loc: RAD Attending Dr: Shanna Ivory M.D. Ordering Physician: Shanna Ivory M.D. Date of Service: 11/28/23 Procedure(s): XR abdomen 1V Accession Number(s): [id number] cc: CHRISTIANO PEGUERO ; Shanna Ivory M.D. The [address] [id number] Patient Name: OLAF BRIONES MRN: [id number] date: 1945 Sex: M Assigned Patient Location: RAD Current Patient Location: Accession/Order Number: [id number] Exam Date: 11/28/2023 08:32 Report Date: 11/29/2023 04:56 At the request of: SHANNA IVORY Procedure: XR abdomen 1V EXAMINATION: XR abdomen 1V HISTORY: Kidney Stones COMPARISON: XR abdomen 11/20/2022 FINDINGS: KIDNEY/URETER - RIGHT: Numerous tiny calcifications projecting over the kidney. KIDNEY/URETER - LEFT: Numerous calcifications projecting over kidney, largest is 5 mm. PELVIS: No appreciable ureteral stones. BOWEL: No abnormal dilation or deviation. BONES: No acute abnormality. OTHER: Negative. No abnormal gaseous collections. XR/XR abdomen 1V IMPRESSION: 1. Grossly stable bilateral nephrolithiasis. Electronically authenticated by: ANTONI ANDERS Date: 11/29/2023 04:56 Dictated By: Antoni Anders M.D. Signed By: 11/29/23458 DD/ 5 TD/TT: Agricultural Equipment Salesperson: Procedure Note Radiology, Radiologist, MD - 11/29/2023 [place] [address] XRay Report Signed Patient: OLAF BRIONES WMR#: [id number] : 1945cct:[id number] Age/Sex: 78 / MADM Date: 11/28/23 Loc: RAD Attending Dr: Shanna Ivory M.D. Ordering Physician: Shanna Ivory M.D. Date of Service: 11/28/23 Procedure(s): XR abdomen 1V Accession Number(s): [id number] cc: CHRISTIANO PEGUERO ; Shanna Ivory M.D. [address] [id number] Patient Name: OLAF BRIONES MRN: [id number] date: 1945 Sex: M Assigned Patient Location: [facility] Current Patient Location: Accession/Order Number: [id number] Exam Date: 11/28/2023 08:32 Report Date: 11/29/2023 04:56 At the request of: SHANNA IVORY Procedure: XR abdomen 1V EXAMINATION: XR abdomen 1V HISTORY: Kidney Stones COMPARISON: XR abdomen 11/20/2022 FINDINGS: KIDNEY/URETER - RIGHT: Numerous tiny calcifications projecting over the kidney. KIDNEY/URETER - LEFT: Numerous calcifications projecting over kidney,largest is 5 mm. PELVIS: No appreciable ureteral stones. BOWEL: No abnormal dilation or deviation. BONES: No acute abnormality. OTHER: Negative. No abnormal gaseous collections. XR/XR abdomen 1V IMPRESSION: 1. Grossly stable bilateral nephrolithiasis. Electronically authenticated by: ANTONI ANDERS Date: 11/29/2023 04:56 Dictated By: Antoni Anders M.D. Signed By:11/29/23 0459 DD/ 0456 TD/TT: Agricultural Equipment Salesperson: Generic External Data Provider [facility] Final Result documented in this encounter Visit Diagnoses Not on filedocumented in this encounter Additional Health Concerns Assessment Noted Time PHQ-9 Depression Total Score: 9 06/18/19 24 11:06 AM EDT documented as of this encounter Care Teams Product Introduction Manager Relationship Specialty Start Date End Date Christiano Peguero MD [address] [facility] 110 [place] [address] PCP - General Family Medicine 10/09/22 Christiano Peguero MD [address] [facility] 110 [place] [address] PCP - [facility] 05/20/23 06/17/65 documented as of this encounter
--- OUTSIDE RECORDS SUMMARY | 2024-07-30 10:14 | XMS_ITS | Encounter Summary ---
Author Organization [facility] Address [address] [place] [address] Care Team Providers Care Tie Man Name Role Phone Christiano Peguero MD Primary Care Provider [phone] Christiano Peguero MD Unavailable Encounter Details Date Type Department Care Team (Late st Contact Info) Description 11/20/2022 Clinisync Result Encounter [facility] External Department Unsolicited [...] Date/Time Associated Diagnosis Comments XR ABDOMEN 1V 11/20/2022 11:58 AM EDT documented in this encounter Results * XR ABDOMEN 1V (11/20/2022 11:58 AM EDT) Anatomical Region Laterality Modality Other 11/20/2022 11:5 8 AM EDT Narrative 11/20/2022 11:58 AM EDT The [address] [address] XRay Report Signed Patient: OLAF BRIONES MR#: [id number] : 1945 Acct:[id number] Age/Sex: 77 / M ADM Date: 11/20/22 Loc: RAD Attending Dr: Shanna Ivory M.D. Ordering Physician: Shanna Ivory M.D. Date of Service: 11/20/22 Procedure(s): XR abdomen 1V Accession Number(s): [id number] cc: CHRISTIANO PEGUERO ; Shanna Ivory M.D. The [address] [address] Patient Name: OLAF BRIONES MRN: [id number] date: 1945 Sex: M Assigned Patient Location: [facility] Current Patient Location: RAD Accession/Order Number: [id number] Exam Date: 11/20/2022 11:02 Report Date: 11/20/2022 11:58 At the request of: SHANNA IVORY Procedure: XR abdomen 1V EXAM: XR abdomen 1V HISTORY: Kidney stones N20.0 COMPARISON: None. TECHNIQUE: AP view of the abdomen. FINDINGS: Nonobstructive bowel gas pattern is noted. There are bilateral renal calculi, largest on the right measuring up to 5 mm and largest on the left measuring up to 3 mm. The osseous structures are intact. XR/XR abdomen 1V IMPRESSION: Nonobstructive bowel gas pattern. Bilateral nephrolithiasis. Electronically authenticated by: SHELLEY FRIEND Date: 11/20/2022 11:58 Dictated By: Shelley Friend M.D. Signed By: 11/20/22 1201 DD/ 1158 TD/TT: Screw Down: Procedure Note Radiology, Radiologist, MD - 11/20/2022 [place] [address] XRay Report Signed Patient: OLAF BRIONES WMR#: [id number] : 1945cct:[id number] Age/Sex: 77 / MADM Date: 11/20/22 Loc: RAD Attending Dr: Shanna Ivory M.D. Ordering Physician: Shanna Ivory M.D. Date of Service: 11/20/22 Procedure(s): XR abdomen 1V Accession Number(s): [id number] cc: CHRISTIANO PEGUERO Patrick M.D. The [address] [id number] Patient Name: OLAF BRIONES MRN: [id number] date: 1945 Sex: M Assigned Patient Location: [facility] Current Patient Location: RAD Accession/Order Number: [id number] Exam Date: 11/20/2022 11:02 Report Date: 11/20/2022 11:58 At the request of: SHANNA IVORY Procedure: XR abdomen 1V EXAM: XR abdomen 1V HISTORY: Kidney stones N20.0 COMPARISON: None. TECHNIQUE: AP view of the abdomen. FINDINGS: Nonobstructive bowel gas pattern is noted. There are bilateral renal calculi, largest on the right measuring up to 5mm and largest on the left measuring up to 3 mm. The osseous structures are intact. XR/XR abdomen 1V IMPRESSION: Nonobstructive bowel gas pattern. Bilateral nephrolithiasis. Electronically authenticated by: SHELLEY FRIEND Date: 11/20/2022 11:58 Dictated By: Shelley Friend M.D. Signed By:11/20/22 1201 DD/ 1158 TD/TT: Screw Down: us Generic External Data Provider [facility] Final Result documented in this encounter Visit Diagnoses Not on filedocumented in this encounter Care Teams Tie Man Relationship Specialty Start Date End Date Christiano Peguero MD [address] [facility] [address] [place] [address] PCP - General Family Medicine 10/09/22 Christiano Peguero MD [address] [facility] [address] [place] [address] PCP - [facility] 05/20/23 06/17/65 documented as of this encounter
--- OUTSIDE RECORDS SUMMARY | 2024-07-30 10:14 | XMS_ITS | Clinical Summary ---
Author Organization [facility] Address [address] [place] [address] Care Team Providers Care Stream Control Officer Name Role Phone Mora Barraza MD Primary Care Provider Unav ailable Allergies Active Allergy Reactions Criticality Noted Date Comments Albuterol Other: See Comments 11/12/2011 Hydrochlorothiazide Rash 08/20/2022 Medications allopurinol (ZYLOPRIM) 300 mg tablet Take 300 mg by mouth once daily. 10/02/2018 Active amLODIPine (NORVASC) 5 mg tablet Take 5 mg by mouth once daily. 10/24/2018 Active carvedilol (COREG) 6.25 mg tablet Take 6.25 mg by mouth twice daily with meals. 08/22/2022 Active ticagrelor (BRILINTA) 90 mg tablet Take 90 mg by mouth twice daily. 08/22/2022 Active aspirin, enteric coated (ASPIRIN, ENTERIC COATED) 81 mg EC tablet Take 81 mg by mouth once daily. 11/24/2020 Active lisinopril 2.5 mg tablet Take 2.5 mg by mouth once daily. 08/22/2022 Active diclofenac, EC, (VOLTAREN) 75 mg EC tablet Take 75 mg by mouth twice daily. 10/24/2018 Active nitroglycerin sublingual (NITROQUICK) 0.4 mg SL tablet Dissolve 0.4 mg under the tongue every 5 minutes as needed for chest pain. 08/22/2022 Active trospium (SANCTURA) 20 mg tablet Take 1 tablet by mouth twice daily for montague discomfort. Stop taking 48 hours before montague removal. 30 tablet 1 08/31/2022 6:35 PM EDT 08/30/2022 Active Active Problems Problem Noted Date Diagnosed Date Malnutrition of mild degree 08/29/2022 Assessment & Plan (08/29/2022 11:28 AM EDT): Assessment: Patient on liquid diet. Plan: - Advance to regular diet Hematuria 08/27/2022 Assessment & Plan (08/31/2022 8:54 AM EDT): S/p Cystourethroscopy, clot evacuation, cystolitholapaxy, and TURP on 08/18. Per urology there is concern for development of hyponatremia given the significant amount of irrigation that was necessary during the prodcedure. Na is stable above 135. CBI stopped at 6:30 AM today, Urology monitoring. Plan - Continue to monitor H/H - CMP q 6 hours to monitor Na - Management per urology, pending discharge/transfer Assessment & Plan (08/30/2022 3:24 PM EDT): S/p Cystourethroscopy, clot evacuation, cystolitholapaxy, and TURP on 08/18. Per urology there is concern for development of hyponatremia given the significant amount of irrigation that was necessary during the prodcedure. Na is stable above 135. Plan - Continue to monitor H/H - CMP q 6 hours to monitor Na - Management per urology Assessment & Plan (08/29/2022 11:22 AM EDT): S/p Cystourethroscopy, clot evacuation, cystolitholapaxy, and TURP on 08/18. Per urology there is concern for development of hyponatremia given the significant amount of irrigation that was necessary during the prodcedure. Na is stable above 135. Plan - Continue to monitor H/H - CMP q 6 hours to monitor Na - Management per urology Assessment & Plan (08/28/2022 9:43 PM EDT): S/p Cystourethroscopy, clot evacuation, cystolitholapaxy, and TURP on 08/18. Per urology there is concern for development of hyponatremia given the significant amount of irrigation that was necessary during the prodcedure. Plan - Continue to monitor H/H - CMP q 6 hours to monitor Na - Management per urology Coronary artery disease invo lving kashia coronary artery of kashia heart 08/27/2022 Assessment & Plan (08/31/2022 8:51 AM EDT): Assessment: STEMI on 08/19/2022 s/p JUHI Plan - Continue dual antiplatelet therapy with aspirin and ticagrelor Assessment & Plan (08/30/2022 3:24 PM EDT): Assessment: STEMI on 08/19/2022 s/p JUHI Plan - Continue dual antiplatelet therapy with aspirin and ticagrelor Assessment & Plan (08/29/2022 11:23 AM EDT): Assessment: STEMI on 08/19/2022 s/p JUHI Plan - Continue dual antiplatelet therapy with aspirin and ticagrelor Assessment & Plan (08/28/2022 9:36 PM EDT): recent STEMI on 08/20/22 s/p JUHI Plan -Continue DAPT with ASA and ticagrelor Adverse reaction to antiplatelet agent Myocardial infarction 08/27/2022 Assessment & Plan (08/31/2022 8:52 AM EDT): Assessment: STEMI on 08/19/2022 s/p JUHI Plan - Continue dual antiplatelet therapy with aspirin and ticagrelor Assessment & Plan (08/30/2022 3:24 PM EDT): Assessment: STEMI on 08/19/2022 s/p JUHI Plan - Continue dual antiplatelet therapy with aspirin and ticagrelor Assessment & Plan (08/29/2022 11:23 AM EDT): Assessment: STEMI on 08/19/2022 s/p JUHI Plan - Continue dual antiplatelet therapy with aspirin and ticagrelor Assessment & Plan (08/28/2022 9:36 PM EDT): recent STEMI on 08/20/22 s/p JUHI Plan -Continue DAPT with ASA and ticagrelor Essential (primary) hypertension 08/27/2022 Assessment & Plan (08/31/2022 8:52 AM EDT): Assessment: Patient on home amlodipine, carvedilol, lisinopril Plan - On home carvedilol and amlodipine - Holding home lisinopril Assessment & Plan (08/30/2022 3:24 PM EDT): Assessment: Patient on home amlodipine, carvedilol, lisinopril Plan - Started home amlodipine and carvedilol - Holding homelisinopril Assessment & Plan (08/29/2022 11:25 AM EDT): Assessment: Patient on home amlodipine, carvedilol, lisinopril Plan - Started home amlodipine and carvedilol - Holding homelisinopril Assessment & Plan (08/28/2022 9:41 PM EDT): On home amlodipine, carvedilol, lisinopril Plan -Holding home meds immediately post-op -Re-assess on POD1 and re-add home meds if HDS Type 2 diabetes mellitus wit hout complication, without long-term current use of insulin 08/27/2022 Assessment & Plan (08/31/2022 8:53 AM EDT): Assessment: Patient is not on home medications, not on home insulin. Patient given 4 units of SSI in past 24 hours. Sugars between 146-163 Plan: - SSI 3 - Monitor BG Assessment & Plan (08/30/2022 3:24 PM EDT): Assessment: Patient is not on home medications, not on home insulin. Patient given 2 units of SSI in past 24 hours. Sugars between 147-202 Plan -SSI 3 Assessment & Plan (08/29/2022 11:26 AM EDT): Assessment: Patient is not on home medications, not on home insulin. Patient given 2 units of SSI in past 24 hours. Sugars between 147-202 Plan -SSI 3 Assessment & Plan (08/28/2022 9:48 PM EDT): Not on home medications, not on home insulin Plan -SSI Leukocytosis 08/27/2022 Assessment & Plan (08/29/2022 11:27 AM EDT): Assessment: WBC count downtrending. Blood and urine cultures negative. On Zosyn since 08/27 Plan: - D/c zosyn per primary Immunizations Immunization Administration Dates Next Due AS03 adjuvant 12/16/2018,12/24/2017 COVID-19 original vaccine, a ge 12+ yr, monovalent (FashioholicNTPillGuard - PURPLE TOP) 02/06/2021,04/12/2020,03/28/2020 influenza (HD-IIV3) vaccine, age 65+ yr, high dose, trivalent, PF (FLUZONE HIGH-DOSE) 12/21/2016,11/23/2015 influenza (HD-IIV4) vaccine, age 65+ yr, high dose, quadrivalent, PF (FLUZONE HIGH-DOSE) 12/16/2019 influenza (LAIV) vaccine, na stephon, unspecified formulation 02/18/2022,11/18/2020,10/20/2015,11/06 influenza (aIIV4) vaccine, a ge 65+ yr, quadrivalent, PF (FLUAD QUAD) 12/26/2021,11/10/2020 pneumococcal conjugate (PCV1 3) vaccine, 13 valent (PREVNAR 13) 11/06/2014 pneumococcal polysaccharide (PPV23) vaccine, 23 valent (PNEUMOVAX 23) 02/19/2016 tetanus diphtheria pertussis (Tdap) vaccine, age 7+ yr (ADACEL, BOOSTRIX) 03/27/2021 Social History Tobacco Use Types Packs/Day Years Used Date Smoking Tobacco: Never Assessed Sex and Gender Information Value Date Recorded Sex Assigned at Not on file Legal Sex Male 10:42 PM EDT Gender Identity Not on file Sexual Orientation Not on file Last Filed Vital Signs Vital Sign Reading Time Taken Comments Blood Pressure 132/60 08/31/2022 5:00 PM EDT Pulse 77 08/31/2022 5:00 PM EDT Temperature 36.7 C (98 F) 08/31/2022 4:00 PM EDT Respiratory Rate 27 08/31/2022 5:00 PM EDT Oxygen Saturation 97% 08/31/2022 5:00 PM EDT Inhaled Oxygen Concentration - - Weight 77.9 kg (171 lb 11.8 oz) 08/31/2022 8:00 AM EDT Height 173 cm (5' 8.11 ) 08/27/2022 5:59 AM EDT Body Mass Index 26.03 08/27/2022 5:59 AM EDT Plan of Treatment Health Maintenance Due Date Last Done Comments Anxiety Screening 06/18/1963 Depression Screening 06/18/1963 Shingrix Vaccine (1 of 2) 06/18/1995 RSV Vaccine (1 - 1-dose 75+ series) 2020 Covid-19 Vaccine ( - 2023-2 5 season) 2023 02/06/2021, 04/12/2020, 03/28/2020 Advance Directive Discussion 02/19/2024 Influenza Vaccine (Season Ended) 2024 02/18/2022, 12/26/2021, 11/18/2020, Additional history exists Diabetes Screening 08/31/2025 08/31/2022, 0 08/30/2022, 08/29/2022, Additional history exists DTaP,Tdap,Td Vaccine (2 - Td or Tdap) 03/27/2031 03/27/2021 Pneumococcal Vaccine: 50+ Completed 2016, 11/06/2014, 09/11/2010 Procedures Procedure Name Priority Date/Time Associated Diagnosis Comments COMPREHENSIVE METABOLIC PANEL STAT 08/31/2022 12:24 AM EDT from Last 3 Months or Most Recently Relevant to Health Maintenance Results * (ABNORMAL) COMP METABOLIC PANEL (08/31/2022 12:24 AM EDT) Protein, Total 6.1(L) 6.3 - 8.0 g/dL 08/31/2022 1:30 AM EDT [facility] Albumin 3.8(L) 3.9 - 4.9 g/dL 08/31/2022 1:30 AM EDT [facility] Calcium, Total 9.1 8.5 - 10.2 mg/dL 08/31/2022 1:30 AM EDT [facility] Bilirubin, Total 0.3 0.2 - 1.3 mg/dL 08/31/2022 1:30 AM [facility] Alkaline Phosphatase 116(H) 38 - 113 U/L 08/31/2022 1:30 AM [facility] AST 19 14 - 40 U/L 08/31/2022 1:30 AM [facility] ALT 23 10 - 54 U/L 08/31/2022 1:30 AM [facility] Glucose 114(H) 74 - 99 mg/dL 08/31/2022 1:30 AM [facility] Comment: The [place] Diabetes Association (ADA) provides guidance for cutoff [...] Standards of Medical Care in Diabetes 2016, [place] Diabetes Association. Diabetes Care. 2016.39(Suppl 1). BUN 21 9 - 24 mg/dL 08/31/2022 1:30 AM [facility] Creatinine 0.88 0.73 - 1.22 mg/dL 08/31/2022 1:30 AM [facility] Sodium 139 136 - 144 mmol/L 08/31/2022 1:30 AM [facility] Potassium 4.2 3.7 - 5.1 mmol/L 08/31/2022 1:30 AM [facility] Chloride 105 97 - 105 mmol/L 08/31/2022 1:30 AM [facility] CO2 25 22 - 30 mmol/L 08/31/2022 1:30 AM [facility] Anion Gap 9 9 - 18 mmol/L 08/31/2022 1:30 AM [facility] Estimated Glomerular Filtration Rate 89 >=60 mL/min/1.7 3m 08/31/2022 1:30 AM EDT [facility] Comment:Estimated Glomerular Filtration Rate (eGFR) is calculated using the 2020 CKD-EPI creatinine equation. This equation utilizes serum creatinine, sex, and age as parameters. The creatinine assay has traceable calibration to isotope dilution- mass spectrometry. Refer to KDIGO guidelines for clinical interpretation. In patients with unstable renal function, e.g. those with acute kidney injury, the eGFR may not accurately reflect actual GFR. Blood BLOOD SPECIMEN / Unknown Venipuncture / Unknown 08/31/2022 12:24 AM EDT 08/31/2022 12:36 AM EDT us Ria Herrera MD LABORATORY Final Result [facility] [address] [id number], from Last 3 Months or Most Recently Relevant to Health [place] [address] Care Teams Stream Control Officer Relationship Specialty Start Date End Date Mora Barraza MD PCP - General Family Medicine 08/31/22
--- OUTSIDE RECORDS SUMMARY | 2024-07-30 10:14 | XMS_ITS | Encounter Summary ---
Author Organization [facility] Address [address] [facility] [place] [address] Care Team Providers Care Vinyl Flooring Installer Name Role Phone Christiano Coppola MD Primary Care Provider [phone] Christiano Coppola MD Unavailable Encounter Details Date Type Department Care Team (Late st Contact Info) Description 02/04/2023 Abstract [facility] [address] [facility] 110 [place] [id number] Christiano Coppola MD [address] [facility] 110 [place] [address] Social History Tobacco Use Types Packs/Day Years [...] on filedocumented in this encounter Care Teams Vinyl Flooring Installer Relationship Specialty Start Date End Date Christiano Coppola MD [address] [facility] [address] [place] [address] PCP - General Family Medicine 10/09/22 Christiano Coppola MD [address] [facility] [address] [place] [address] PCP - [facility] 05/20/23 06/17/65 documented as of this encounter
--- OUTSIDE RECORDS SUMMARY | 2024-07-30 10:14 | XMS_ITS | Encounter Summary ---
Author Organization [facility] Address [address] [place] [address] Care Team Providers Care Car Wiper Name Role Phone Christiano Coppola MD Primary Care Provider [phone] Christiano Coppola MD Unavailable Encounter Details Date Type Department Care Team (Late st Contact Info) Description 11/21/2022 Orders Only [facility] [address] [facility] [address] [place] [address] A, Unknown Practice [address] [place], [place] [address] Social History Tobacco Use Types Packs/Day Years [...] Priority Date/Time Associated Diagnosis Comments XR ABDOMEN 1 VIEW Routine 11/20/2022 8:26 AM EDT documented in this encounter Results * XR abdomen 1 view (11/20/2022 8:26 AM EDT) Anatomical Region Laterality Modality Abdomen Radiographic Kristi ging us Unknown Practice A IMG XR PROCEDURES Final Resul t documented in this encounter Visit Diagnoses Not on filedocumented in this encounter Care Teams Car Wiper Relationship Specialty Start Date End Date Christiano Coppola MD [address] [facility] [address] [place], [place] [id number] PCP - General Family Medicine 10/09/22 Christiano Coppola MD [address] [facility] [address] [place] [address] [facility] 05/20/23 06/17/65 documented as of this encounter
--- OUTSIDE RECORDS SUMMARY | 2024-07-30 10:14 | XMS_ITS | Encounter Summary ---
Author Organization [facility] Address [address] [place] [address] Care Team Providers Care Craft Recruiter Name Role Phone Christiano Coppola MD Primary Care Provider [phone] Christiano Coppola MD Unavailable Encounter Details Date Type Department Care Team (Late st Contact Info) Description 06/19/2023 Orders Only [facility] [address] [facility] [address] [place] [phone] Unallocated, Noms Provider, [address] [place] [address] Social History Tobacco Use Types Packs/Day Years [...] Procedure Name Priority Date/Time Associated Diagnosis Comments SCANNED LABS Routine 06/19/2023 1:11 PM EDT documented in this encounter Results * SCANNED LABS (06/19/2023 1:11 PM EDT) us Noms Provider Unallocated LAB CHG PERFORMABLE S Final Result documented in this encounter Visit Diagnoses Not on filedocumented in this encounter Additional Health Concerns Assessment Noted Time PHQ-9 Depression Total Score: 9 06/18/19 24 11:06 AM EDT documented as of this encounter Care Teams Craft Recruiter Relationship Specialty Start Date End Date Christiano Coppola MD [address] [facility] [address] [place] [address] PCP - General Family Medicine 10/09/22 Christiano Coppola MD [address] [facility] 110 [place] [address] PCP - [facility] 05/20/23 06/17/65 documented as of this encounter
--- OUTSIDE RECORDS SUMMARY | 2024-07-30 10:14 | XMS_ITS | Encounter Summary ---
Author Organization [facility] Address [address] [place] [address] Care Team Providers Care Gas Cutter Name Role Phone Christiano Coppola MD Primary Care Provider [phone] Christiano Coppola MD Unavailable Encounter Details Date Type Department Care Team (Late st Contact Info) Description 06/27/2023 Abstract [facility] [address] [facility] 110 [place] [phone] Christiano Coppola MD 112 [facility] 110 [place] [address] Social History Tobacco Use Types Packs/Day Years [...] documented as of this encounter Care Teams Gas Cutter Relationship Specialty Start Date End Date Christiano Coppola MD 112 [facility] 110 [place] [address] PCP - General Family Medicine 10/09/22 Christiano Coppola MD [address] [facility] 110 [place] [address] PCP - [facility] 05/20/23 06/17/65 documented as of this encounter
--- OUTSIDE RECORDS SUMMARY | 2024-07-30 10:14 | XMS_ITS | Encounter Summary ---
Author Organization [facility] Address [address] [place] [address] Care Team Providers Care Reporter Name Role Phone Christiano Coppola MD Primary Care Provider [phone] Christiano Coppola MD Unavailable Encounter Details Date Type Department Care Team (Late st Contact Info) Description 03/13/2023 Abstract [facility] [address] [facility] 110 [place] [phone] Christiano Coppola MD [address] [facility] 110 [place] [address] Social History Tobacco Use Types Packs/Day Years [...] on filedocumented in this encounter Care Teams Reporter Relationship Specialty Start Date End Date Christiano Coppola MD [address] [facility] 110 [place] [address] PCP - General Family Medicine 10/09/22 Christiano Coppola MD [address] [facility] 110 [place] [address] PCP - [facility] 05/20/23 06/17/65 documented as of this encounter
--- OUTSIDE RECORDS SUMMARY | 2024-07-30 10:14 | XMS_ITS | Clinical Summary ---
Author Organization [facility] Address [address] [place] [address] Care Team Providers Care Compensation Director Name Role Phone Unavailable Primary Care Provider [...] Orientation Not on file Plan of Treatment Health Maintenance Due Date Last Done Comments Medicare Annual Wellness (AWV) 1945 Depression Screening 1957 Pneumococcal Vaccine: 50+ Ye ars (1 of 2 - PCV) 1964 Adult Tetanus 06/18/1967 Zoster Vaccines (1 of 2) 06/18/1995 Fall Risk Screening 2010 COVID-19 Vaccine (2023-2 5 season) 2023 Influenza Vaccine (Season Ended) 2024 HIB Vaccines Aged Out No longer eligi ble based on patient's age to complete this topic HPV Vaccines Aged Out No longer eligi ble based on patient's age to complete this topic IPV Vaccines Aged Out No longer eligi ble based on patient's age to complete this topic Meningococcal B Vaccine Aged Out No l onger eligible based on patient's age to complete this topic Meningococcal Vaccine Aged Out No kevin mannie eligible based on patient's age to complete this topic Rotavirus Vaccines Aged Out No longer eligible based on patient's age to complete this topic Insurance [facility] [employer] MEDICARE
--- OUTSIDE RECORDS SUMMARY | 2024-07-30 10:14 | XMS_ITS | Encounter Summary ---
Author Organization [facility] Address [address] [place] [address] Care Team Providers Care Cnc Manufacturing Engineer Name Role Phone Christiano Coppola MD Primary Care Provider [phone] Christiano Coppola MD Unavailable Reason for Visit * Reason Comments Med Refill Encounter Details Date Type Department Care Team (Late st Contact Info) Description 07/20/2024 Refill [facility] [address] [facility] 110 [place] [phone] Lucinda Demarco, PA 112 [facility] 110 [place] [address] Current mild episode of major depressive disorder without prior episode Social History Tobacco Use Types Packs/Day Years [...] as of this encounter Visit Diagnoses Diagnosis Current mild episode of major depressive disorder without prior episode documented in this encounter Additional Health Concerns Assessment Noted Time PHQ-9 Depression Total Score: 9 06/18/19 24 11:06 AM EDT documented as of this encounter Care Teams Cnc Manufacturing Engineer Relationship Specialty Start Date End Date Christiano Coppola MD 112 [facility] 110 [place] [address] PCP - General Family Medicine 10/09/22 Christiano Coppola MD 112 [facility] 110 [place] [address] [facility] 05/20/23 06/17/65 documented as of this encounter
--- OUTSIDE RECORDS SUMMARY | 2024-07-30 10:14 | XMS_ITS | Encounter Summary ---
Author Organization [facility] Address [address] [facility] [place] [address] Care Team Providers Care Fitting Room Supervisor Name Role Phone Christiano Coppola MD Primary Care Provider [phone] Christiano Coppola MD Unavailable Encounter Details Date Type Department Care Team (Late st Contact Info) Description 03/06/2023 Abstract [facility] [address] [facility] [address] [place] [phone] Christiano Coppola MD [address] [facility] 110 [place] [address] Social History Tobacco Use Types Packs/Day Years [...] on filedocumented in this encounter Care Teams Fitting Room Supervisor Relationship Specialty Start Date End Date Christiano Coppola MD [address] [facility] [address] [place] [address] PCP - General Family Medicine 10/09/22 Christiano Coppola MD [address] [facility] [address] [place] [address] PCP - [facility] 05/20/23 06/17/65 documented as of this encounter
--- NOTE | 2024-07-30 10:57 | PM.CN ---
Consult Note: HPI Data of Consult Patient: known to practice within the last 3 years Requesting Physician: Ria Kirby NP Primary Care Provider: DAV PEGUERO Consult Narrative Reason for consult: low back and BLE pain Narrative: Thomas Thorne a pleasant 79 year old male presents for evaluation of moderate to severe low back and BLE pain, hx of severe stenosis and degenerative changes. historically has responded very well to interventional therapy, last KATIE provided >50% improvement greater than 3 months. Since last visit he has noticed increased pain radiating into his groin and penis which makes him feel he has to urinate. Pain 2/10 aching increasing to 8/10 with standing, walking, twisting, pushing, pulling. pain improves significantly with forward flexion and sitting. cc:: CC: Ria Kirby NP Review of Systems ROS Status of ROS 10 or more systems reviewed and unremarkable except as noted in history and below [facility] Medical History Enlarged prostate ?N40.0 - Benign prostatic hyperplasia without lower urinary tract symptoms (ICD-10) Low back pain ?M54.50 - Low back pain, unspecified (ICD-10) Hypertension ?I10 - Essential (primary) hypertension (ICD-10) Kidney stone Surgical History History of transurethral resection of prostate ?Z98.890 - Other specified postprocedural states (ICD-10) ?Z90.79 - Acquired absence of other genital organ(s) (ICD-10) Meds Home Medications and Allergies Home Medications ?Medication ?Instructions ?Recorded ?Confirmed ?Type allopurinol 300 mg tablet 300 mg PO DAILY 01/23/23 07/22/23 History amlodipine 5 mg tablet 5 mg PO DAILY 01/23/23 07/22/23 History aspirin 81 mg tablet,delayed 81 mg PO DAILY 01/23/23 07/22/23 History release atorvastatin 80 mg tablet 40 mg PO DAILY 01/23/23 07/22/23 History carvedilol 6.25 mg tablet 6.25 mg PO Q12H 01/23/23 07/22/23 History lisinopril 2.5 mg tablet 2.5 mg PO DAILY 01/23/23 07/22/23 History nitroglycerin 0.4 mg sublingual 0.4 mg sublingual Q5M PRN chest 01/23/23 07/22/23 History tablet pain ticagrelor 90 mg tablet (Brilinta) 90 mg PO Q12H 01/23/23 07/22/23 History Allergies Allergy/AdvReac Type Severity Reaction Status Date / Time amoxicillin Allergy Unknown Verified 07/22/23 10:03 albuterol Allergy Verified 07/22/23 10:03 hydrochlorothiazide Allergy Verified 07/22/23 10:03 Exam Constitutional Documenting provider has reviewed patient's vital signs: yes Common normals: no apparent distress, oriented x3, healthy appearing, alert and well nourished General appearance: cooperative HENMT Common normals: normocephalic, hearing grossly normal bilaterally and moist oral mucous membranes Head and scalp: normocephalic Eye Common normals: PERRL Pupil: PERRL Neck & C-Spine Common normals: full ROM General: normal visual inspection Chest Common normals: inspection of chest normal Respiratory Common normals: normal respiratory effort, no retractions and no use of accessory muscles Back & Pelvis Lumbar spine/lower back: pain with ROM, straight leg raise positive right and straight leg raise positive left Sacroiliac joints: SI joints normal Other: strength 4/5 in BLE decreased sensation bilateral L4,5,S1 Extremity Common normals: normal to inspection and full ROM Other: negative internal/external rotation of bilateral hips Neuro Common normals: oriented x3 Sensorium/orientation: alert Psych Common normals: mental status grossly normal, thought process normal, cooperative, affect normal, speech normal and activity/motor behavior normal Speech: normal speech Thought process: normal thought process Results Additional Findings Additional findings: If on a controlled substance or opioids, I have checked an [place]AR[place] report on this patient and there are no aberrancies noted in the prescribing history.??If on a controlled substance or opioid a drug screen was completed and reviewed within the last year, and if there has not been a drug screen completed we ordered one today to monitor higher risk, state monitored pain medication use. As part of providing excellent, safe, comprehensive care, the following was completed at our patient's visit: 1. A medication reconciliation and review to ensure accurate knowledge of current/active medications, including asking our patients to inform us about any [id number]-[id number] medications or herbal remedies/nutritional supplements/alternative remedies. 2. A review to specifically ensure our patients have had annual screening for screening for depression, screening for tobacco use, and screening for unhealthy alcohol use. For concerning screenings had a discussion with the patient, provided patient education, and recommended follow-up with primary care provider when appropriate. If patient noted with a risk of falling, they received education on strength, gait, and balance training to prevent future risk of falling. Portions of this note may have been carried over from the previous visit and updated as appropriate. Please note this office utilizes paper charting in addition to the electronic medical record. A list of current medications, vitals, and PMH is available there as the clinical staff outside of myself do not have access to [employer] charting during the clinic day operations. As part of providing quality comprehensive care the current medications, vitals, and PMH were reviewed in the paper chart. Assessment and Plan Assessment and Plan (1) Cauda equina syndrome: (2) Lumbar stenosis with neurogenic claudication: Assessment and Plan: The patient has had over 3 months of moderate to severe low back and BLE pain with functional impairment and inadequate response to conservative care including NSAIDS (unless there are contraindication such as concurrent blood thinners), multiple oral or topical pain medications, and home exercise program/physical therapy.? Patient has completed >6 weeks of guided home exercise program and/or formal physical therapy program without relief of their symptoms.? Plan update stat lumbar MRI without contrast, hx of moderate to severe lumbar stenosis and degenerative changes I am concerned for worsening of stenosis. declining gabapentin at this time. continue tylenol PRN. f/u to review lumbar MRI
== END 2024-07-30 10:12 | disposition home or self-care (01) ==
LOC: PM 10:11
PROVIDERS: PCP Family Medicine; Visit Provider Nurse Practitioner
DX: G83.4 Cauda equina syndrome (principal); M48.062 Spinal stenosis, lumbar region with neurogenic claudication
CPT/HCPCS: G0463

== ENCOUNTER 2024-07-31 10:43 | Outpatient (OUT) | payer MEDICARE, SELFPAY ==
--- OUTSIDE RECORDS SUMMARY | 2024-07-24 07:40 | XMS_ITS ---
Author Organization [facility] Address [address] [place] [address] Care Team Providers Care Cream Hauler Name Role Phone Christiano Coppola MD Primary Care Provider UnavailFannie Honeycutt Unavailable [phone] REASON FOR VISIT LUMBAR PAIN Encounters Encounter Location Date Provider Diagnosis [facility] Office [address] [place] [address] [place] [address] 07/24/2024 Fannie Norton Plan Of Treatment No Information Progress Notes * OLAF BRIONES WDOB:1945 (79 yo M)Acc No.[id number]:07/24/2024 Patient: OLAF SHI Provider: Yue Rangel MD, PhD :1945 A ge:79 Y S ex:Male Date:07/24/2024 Address:Count includes the [facility] [place], [id number] Pcp:Christiano Coppola MD Subjective: * Chief Complaints: * 1 . LUMBAR PAIN. * Medical History: Objective: * Vitals: Assessment: Plan: * Treatment: Forms: * Images: * Electronic signature of Felicia Norton MD, PHD on 07/31/2024 at 10:45 AM EDT Sign off status: Pending * Provider: Yue Rangel MD, PhD Date: 07/24/2024 Generated for Antwan ng/Fageovani/eTransmitting on: 07/31/2024 10:45 AM EDT
--- OUTSIDE RECORDS SUMMARY | 2024-07-31 10:45 | XMS_ITS | Encounter Summary ---
Author Organization [facility] Address [address] [place] [address] Care Team Providers Care Rejector Name Role Phone Christiano Coppola MD Primary Care Provider [phone] Christiano Coppola MD Unavailable Reason for Referral * Consultation (Routine) - Authorized Specialty Diagnoses / Procedures Referred By Contdotty t Referred To Contact Neurosurgery Diagnoses Arthritis of low back Christiano Coppola MD [address] [address] Phone: tel: fax: Tello Drew MD [address] [place] [address], [address] [place] [address] Phone: tel: fax: Referral ID Status Reason Start Date Expiration Date Visits Requested Visits Authorized [id number] Authorized Specialty Services Required 07/20/2024 01/16/2025 1 1 Encounter Details Date Type Department Care Team (Late st Contact Info) Description 07/20/2024 Orders Only [facility] [address] [address] Christiano Coppola MD [address] [address] Arthritis of low back Social History Tobacco [...] documented as of this encounter Care Teams Rejector Relationship Specialty Start Date End Date Christiano Coppola MD 112 [facility] 110 [place] [address] PCP - General Family Medicine 10/09/22 Christiano Coppola MD 112 [facility] 110 [place] [address] PCP - [facility] 05/20/23 06/17/65 documented as of this encounter
--- OUTSIDE RECORDS SUMMARY | 2024-07-31 10:45 | XMS_ITS | Clinical Summary ---
Author Organization [facility] Address [address] [place] [address] Phone Care Team Providers Care Director Medical Writing Name Role Phone Christiano Coppola MD Primary Care Provider [phone] Allergies Active Allergy Reactions Criticality Noted Date [...] HEALTHCARE MEDICARE [employer] MEDICARE Care Teams Director Medical Writing Relationship Specialty Start Date End Date Christiano Coppola MD PCP - General Family Medicine 01/09/23
--- OUTSIDE RECORDS SUMMARY | 2024-07-31 10:45 | XMS_ITS | Clinical Summary ---
Author Organization [facility] Address [address] [place] [address] Care Team Providers Care Manager Club Name Role Phone Christiano Coppola MD Primary Care Provider [phone] Christiano Coppola MD Unavailable Allergies Active Allergy [...] artery disease of n ative artery of [place] heart with stable angina pectoris 11/05/2022 Assessment [...] Description 07/20/2024 Orders Only [facility] 112 [facility] 110 [place] [address] Christiano Coppola MD Arthritis of low back 07/20/2024 Refill [facility] 112 [facility] 110 [place] [address] Lucinda Demarco PA Current mild episode of major depressive disorder without prior episode 06/26/2024 Abstract [facility] 112 [facility] 110 [place] [address] Christiano Coppola MD 05/06/2024 Abstract [facility] 112 [facility] [address] [place] [address] Christiano Coppola MD from Last 3 Months [...] Performing Organization Information Site ID: QPT Name: [facility] Address: [address] [place] [address], [address] [place] [phone] Director: Brennon Zhong MD us Christiano Coppola MD LAB URINE ORDERABLES Final Resul t Performing Organization Address City/State/[facility] Co de Phone Number [facility] * (ABNORMAL) POCT Glycated hemoglobin, total (04/02/2024 1:28 PM EST) Hemoglobin A1C 6.7 Blood 04/02/2024 1:28 PM EST us Christiano Coppola MD POINT OF CARE TEST ENTER/EDIT OR DERABLES Final Result from Last 3 Months or Most Recently Relevant to Health Maintenance Insurance [place] [address] MEDICARE COMPLETE Care Teams Manager Club Relationship Specialty Start Date End Date Christiano Coppola MD [address] [facility] 110 [place] [address] PCP - General Family Medicine 10/09/22 Christiano Coppola MD [address] [facility] 110 [place] [address] PCP - [facility] 05/20/23 06/17/65
--- OUTSIDE RECORDS SUMMARY | 2024-07-31 10:45 | XMS_ITS | Encounter Summary ---
Author Organization [facility] Address [address] [place] [address] Phone Care Team Providers Care Fisheries Technical Officer Name Role Phone Daniel Hernandez MD Primary Care Provider [phone] Christiano Coppola MD Primary Care Provider [phone] Encounter Details Date Type Department Care Team (Late st Contact Info) Description 11/20/2022 Patient Risk Score [facility] [place] Management [address] [place] [phone] Social History Tobacco Use Types Packs/Day Years [...] on filedocumented in this encounter Care Teams Fisheries Technical Officer Relationship Specialty Start Date End Date Daniel Hernandez MD [address] [place] [address] [place] [address] PCP - General 09/05/22 01/08/23 Christiano Coppola MD [address] [place] [address] [place] [address] PCP - General Family Medicine 01/09/23 documented as of this encounter
--- OUTSIDE RECORDS SUMMARY | 2024-07-31 10:45 | XMS_ITS | Encounter Summary ---
Author Organization [facility] Address [address] [place] [address] Care Team Providers Care Silk Screen Etcher Name Role Phone Christiano Coppola MD Primary Care Provider [phone] Christiano Coppola MD Unavailable Encounter Details Date Type Department Care Team (Late st Contact Info) Description 05/06/2024 Abstract [facility] 112 [facility] 110 [place] [phone] Christiano Coppola MD [address] [facility] 110 [place] [address] Social History Tobacco Use Types Packs/Day Years [...] documented as of this encounter Care Teams Silk Screen Etcher Relationship Specialty Start Date End Date Christiano Coppola MD [address] [facility] 110 [place] [address] PCP - General Family Medicine 10/09/22 Christiano Coppola MD [address] [facility] 110 [place] [address] PCP - [facility] 05/20/23 06/17/65 documented as of this encounter
--- OUTSIDE RECORDS SUMMARY | 2024-07-31 10:45 | XMS_ITS | Encounter Summary ---
Author Organization [facility] Address [address] [place] [address] Care Team Providers Care Drink Mixer Name Role Phone Christiano Coppola MD Primary Care Provider [phone] Christiano Coppola MD Unavailable Encounter Details Date Type Department Care Team (Late st Contact Info) Description 04/09/2024 Abstract [facility] 112 [facility] 110 [place] [phone] Christiano Coppola MD [address] [facility] 110 [place] [address] Social History Tobacco Use Types Packs/Day Years [...] documented as of this encounter Care Teams Drink Mixer Relationship Specialty Start Date End Date Christiano Coppola MD [address] [facility] 110 [place] [address] PCP - General Family Medicine 10/09/22 Christiano Coppola MD [address] [facility] 110 [place] [address] PCP - [facility] 05/20/23 06/17/65 documented as of this encounter
--- OUTSIDE RECORDS SUMMARY | 2024-07-31 10:45 | XMS_ITS | Encounter Summary ---
Author Organization [facility] Address [address] [place] [address] Phone Care Team Providers Care Last Greaser Name Role Phone Daniel Hernandez MD Primary Care Provider [phone] Christiano Coppola MD Primary Care Provider [phone] Encounter Details Date Type Department Care Team (Late st Contact Info) Description 12/21/2022 Patient Risk Score [facility] Care Management [address] [place] [phone] Social History Tobacco Use Types Packs/Day Years [...] on filedocumented in this encounter Care Teams Last Greaser Relationship Specialty Start Date End Date Daniel Hernandez MD [address] [place] [address] [place] [address] PCP - General 09/05/22 01/08/23 Christiano Coppola MD [address] [place] [address] [place] [address] PCP - General Family Medicine 01/09/23 documented as of this encounter
--- OUTSIDE RECORDS SUMMARY | 2024-07-31 10:45 | XMS_ITS | Clinical Summary ---
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 08/27/2022 Assessment & Plan (08/31/2022 8:51 [...] original vaccine, a ge 12+ yr, monovalent ([email or web address] - PURPLE TOP) 02/06/2021,04/12/2020,03/28/2020 influenza (HD-IIV3) vaccine, [...] - 8.0 g/dL 08/31/2022 1:30 AM EDT [facility] Albumin 3.8(L) 3.9 - 4.9 g/dL 08/31/2022 1:30 AM EDT [facility] Calcium, Total 9.1 8.5 - 10.2 mg/dL 08/31/2022 1:30 AM EDT [facility] Bilirubin, Total 0.3 0.2 - 1.3 mg/dL 08/31/2022 1:30 AM [facility] Alkaline Phosphatase 116(H) 38 - 113 U/L 08/31/2022 1:30 AM [facility] AST 19 14 - 40 U/L 08/31/2022 1:30 AM [facility] ALT 23 10 - 54 U/L 08/31/2022 1:30 AM [facility] Glucose 114(H) 74 - 99 mg/dL 08/31/2022 1:30 AM [facility] Comment: The [place] Diabetes Association (ADA) provides guidance for cutoff [...] Standards of Medical Care in Diabetes 2016, [place] Diabetes Association. Diabetes Care. 2016.39(Suppl 1). BUN 21 9 - 24 mg/dL 08/31/2022 1:30 AM [facility] Creatinine 0.88 0.73 - 1.22 mg/dL 08/31/2022 1:30 AM [facility] Sodium 139 136 - 144 mmol/L 08/31/2022 1:30 AM [facility] Potassium 4.2 3.7 - 5.1 mmol/L 08/31/2022 1:30 AM [facility] Chloride 105 97 - 105 mmol/L 08/31/2022 1:30 AM [facility] CO2 25 22 - 30 mmol/L 08/31/2022 1:30 AM [facility] Anion Gap 9 9 - 18 mmol/L 08/31/2022 1:30 AM [facility] Estimated Glomerular Filtration Rate 89 >=60 mL/min/1.7 3m 08/31/2022 1:30 AM EDT [facility] Comment:Estimated Glomerular Filtration Rate (eGFR) is [...] us Ria Herrera MD LABORATORY Final Result [facility] [address] [id number], from Last 3 Months or Most Recently Relevant to Health Maintenance Insurance Care Teams Embedded Software Development Engineer Relationship Specialty Start Date End Date Mora Barraza MD PCP - General Family Medicine 08/31/22
--- OUTSIDE RECORDS SUMMARY | 2024-07-31 10:45 | XMS_ITS | Encounter Summary ---
Author Organization [facility] Address [address] [place] [address] Care Team Providers Care Curator Of Manuscripts Name Role Phone Christiano Coppola MD Primary Care Provider [phone] Christiano Coppola MD Unavailable Encounter Details Date Type Department Care Team (Late st Contact Info) Description 06/26/2024 Abstract [facility] [address] [facility] 110 [place] [phone] Christiano Coppola MD [address] [facility] 110 [place] [address] Social History Tobacco Use Types Packs/Day Years [...] documented as of this encounter Care Teams Curator Of Manuscripts Relationship Specialty Start Date End Date Christiano Coppola MD [address] [facility] 110 [place] [address] PCP - General Family Medicine 10/09/22 Christiano Coppola MD [address] [facility] 110 [place] [address] PCP - [facility] 05/20/23 06/17/65 documented as of this encounter
--- OUTSIDE RECORDS SUMMARY | 2024-07-31 10:45 | XMS_ITS | Encounter Summary ---
Author Organization [facility] Address [address] [place] [address] Phone Care Team Providers Care Electrical Calibrator Name Role Phone Christiano Coppola MD Primary Care Provider [phone] Encounter Details Date Type Department Care Team (Late st Contact Info) Description 01/20/2023 Patient Risk Score [facility] Care Management [address] [facility] [address] [place] [address] Social History Tobacco Use Types [...] documented as of this encounter Care Teams Electrical Calibrator Relationship Specialty Start Date End Date Christiano Coppola MD PCP - General Family Medicine 01/09/23 documented as of this encounter
--- OUTSIDE RECORDS SUMMARY | 2024-07-31 10:45 | XMS_ITS | Encounter Summary ---
Author Organization [facility] Address [address] [place] [address] Care Team Providers Care Sulfonator Operator Name Role Phone Christiano Coppola MD Primary Care Provider [phone] Christiano Coppola MD Unavailable Encounter Details Date Type Department Care Team (Late st Contact Info) Description 04/02/2024 Abstract [facility] [address] [place] [address] [place] [phone] Christiano Coppola MD [address] [place] [address] [place] [address] Social History Tobacco Use Types Packs/Day Years [...] documented as of this encounter Care Teams Sulfonator Operator Relationship Specialty Start Date End Date Christiano Coppola MD [address] [facility] 110 [place] [address] PCP - General Family Medicine 10/09/22 Christiano Coppola MD [address] [facility] 110 [place] [address] PCP - [facility] 05/20/23 06/17/65 documented as of this encounter
--- OUTSIDE RECORDS SUMMARY | 2024-07-31 10:46 | XMS_ITS | Encounter Summary ---
Author Organization [facility] Address [address] [place] [address] Care Team Providers Care Armature Bander Name Role Phone Christiano Peguero MD Primary Care Provider [phone] Christiano Peguero MD Unavailable Encounter Details Date [...] EDT Narrative 09/13/2023 6:21 PM EDT The [address] [address] XRay Report Signed Patient: OLAF BRIONES MR#: [id number] : 1945 Acct:[id number] Age/Sex: 78 / M ADM Date: 09/13/23 Loc: CARD Attending Dr: Eliana-Staff Physician Villatoro Ordering Physician: Sisi Martinez M.D. Date of Service: 09/13/23 Procedure(s): XR chest 2V Accession Number(s): [id number] cc: CHRISTIANO PEGUERO ; PhysicianSisi M.D. The [address] [address] Patient Name: OLAF BRIONES MRN: [id number] date: 1945 Sex: M Assigned Patient Location: CARD Current Patient Location: CARD Accession/Order Number: [id number] Exam Date: 09/13/2023 08:42 Report Date: 09/13/2023 [...] M.D. Signed By: 09/13/231820 DD/ 18 TD/TT: Word Processing Machine Operator: Procedure Note Radiology, Radiologist, MD - 09/16/2023 [place] [address] XRay Report Signed Patient: OLAF BRIONES WMR#: [id number] : 1945cct:[id number] Age/Sex: 78 / MADM Date: 09/13/23 Loc: CARD Attending Dr: Non-Staff Physician Villatoro Ordering Physician: Sisi Martinez M.D. Date of Service: 09/13/23 Procedure(s): XR chest 2V Accession Number(s): [id number] cc: CHRISTIANO PEGUERO ; PhysicianSisi M.D. The [address] [address] Patient Name: OLAF BRIONES MRN: [facility]:[id number] date: 1945 Sex: M Assigned Patient Location: CARD Current Patient Location: CARD Accession/Order Number: [id number] Exam Date: 09/13/2023 08:42 Report Date: 09/13/2023 [...] Weir M.D. Signed By:09/13/231820 DD/ 18 TD/TT: Word Processing Machine Operator: Generic External Data Provider [facility] Final Result documented in this encounter Visit Diagnoses Not on filedocumented in this encounter Additional Health Concerns Assessment Noted Time PHQ-9 Depression Total Score: 9 06/18/19 24 11:06 AM EDT documented as of this encounter Care Teams Armature Bander Relationship Specialty Start Date End Date Christiano Peguero MD [address] [facility] 110 [place] [address] PCP - General Family Medicine 10/09/22 Christiano Peguero MD [address] [place] [facility] 110 [place] [address] PCP - [facility] 05/20/23 06/17/65 documented as of this encounter
--- OUTSIDE RECORDS SUMMARY | 2024-07-31 10:46 | XMS_ITS | Patient Health Record ---
Author Organization [facility] Address [address] [place] [address] Care Team Providers Care Boiling Off Winder Name Role Phone Anat HAHN, Christiano Primary Care Provider Dom van Errol Pazmartir Unavailable [phone] Reason For Referral No Information Plan Of Treatment No Information Insurance Providers Payer Name Payer Address Payer Phone Subscriber Number Group Number Insured Name Patient Relationship to Insured Coverage Start Date Coverage End Date MEDICARE [employer] [address] [address] [place] [phone] [id number] OLAF BRIONES Self - patient is the insured 5
--- OUTSIDE RECORDS SUMMARY | 2024-07-31 10:46 | XMS_ITS | Encounter Summary ---
Author Organization [facility] Address [address] [place] [address] Care Team Providers Care Cnc Machinist Name Role Phone Christiano Coppola MD Primary Care Provider [phone] Christiano Coppola MD Unavailable Encounter Details Date Type Department Care Team (Late st Contact Info) Description 06/19/2023 Orders Only [facility] [address] [place] [address] [place] [phone] Unallocated, Noms Provider, [address] [place] [address] Social History Tobacco Use Types Packs/Day Years [...] as of this encounter Care Teams Cnc Machinist Relationship Specialty Start Date End Date Christiano Coppola MD [address] [place] [address] [place] [address] PCP - General Family Medicine 10/09/22 Christiano Coppola MD [address] [facility] 110 [place] [address] PCP - [facility] 05/20/23 06/17/65 documented as of this encounter
--- OUTSIDE RECORDS SUMMARY | 2024-07-31 10:46 | XMS_ITS | Encounter Summary ---
Author Organization [facility] Address [address] [facility] [place] [address] Care Team Providers Care Store Stock Associate Name Role Phone Christiano Coppola MD Primary Care Provider [phone] Christiano Coppola MD Unavailable Encounter Details Date Type Department Care Team (Late st Contact Info) Description 03/06/2023 Abstract [facility] [address] [facility] 110 [place] [address] Christiano Coppola MD [address] [facility] 110 [place] [address] Social History Tobacco Use Types Packs/Day Years [...] on filedocumented in this encounter Care Teams Store Stock Associate Relationship Specialty Start Date End Date Christiano Coppola MD [address] [facility] 110 [place] [address] PCP - General Family Medicine 10/09/22 Christiano Coppola MD [address] [facility] 110 [place] [address] PCP - [facility] 05/20/23 06/17/65 documented as of this encounter
--- OUTSIDE RECORDS SUMMARY | 2024-07-31 10:46 | XMS_ITS | Encounter Summary ---
Author Organization [facility] Address [address] [facility] [place] [address] Care Team Providers Care Printing Sales Representative Name Role Phone Christiano Coppola MD Primary Care Provider [phone] Christiano Coppola MD Unavailable Encounter Details Date Type Department Care Team (Late st Contact Info) Description 01/17/2023 Abstract [facility] [address] [facility] 110 [place] [address] Christiano Coppola MD [address] [facility] 110 [place] [address] Social History Tobacco Use Types Packs/Day Years [...] on filedocumented in this encounter Care Teams Printing Sales Representative Relationship Specialty Start Date End Date Christiano Coppola MD [address] [facility] 110 [place] [address] PCP - General Family Medicine 10/09/22 Christiano Coppola MD [address] [facility] 110 [place] [address] PCP - [facility] 05/20/23 06/17/65 documented as of this encounter
--- OUTSIDE RECORDS SUMMARY | 2024-07-31 10:46 | XMS_ITS | Encounter Summary ---
Author Organization [facility] Address [address] [place] [address] Care Team Providers Care Manager Foreign Name Role Phone Christiano Peguero MD Primary Care Provider [phone] Christiano Peguero MD Unavailable Encounter Details Date [...] EDT Narrative 09/13/2023 3:05 PM EDT The [address] [address] Cardiology Report Signed Patient: OLAF BRIONES MR#: [id number] : 1945 Acct:[id number] Age/Sex: 78 / M ADM Date: 09/13/23 Loc: CARD Attending Dr: Non-Staff Physician Villatoro Ordering Physician: Sisi Martinez M.D. Date of Service: 09/13/23 Procedure(s): CA echo doppler complete Accession Number(s): [id number] cc: CHRISTIANO PEGUERO ; Physician,Non-Staff Irving Patient Name: OLAF BRIONES MR#: [id number] : 1945 Exam Date: 09/13/2023 Ordering Doctor: [...] Signed By: 09/13/23 1505 DD/ 1504 TD/TT: Health Care Coordinator: Procedure Note Radiology, Radiologist, - 09/13/2023 [place] [address] Cardiology Report Signed Patient: OLAF BRIONES WMR#: [id number] : 1945cct:[id number] Age/Sex: 78 / MADM Date: 09/13/23 Loc: CARD Attending Dr: Non-Staff Physician Irving Ordering Physician: Sisi Martinez M.D. Date of Service: 09/13/23 Procedure(s): CA echo doppler complete Accession Number(s): [id number] cc: CHRISTIANO PEGUERO ; Sisi Martinez M.D. Patient Name: OLAF BRIONES MR#: [id number] : 1945 Exam Date: 09/13/2023 Ordering Doctor: [...] M.D. Signed By:09/13/23 1505 DD/ 1504 TD/TT: Health Care Coordinator: us Generic External Data Provider [facility] Final Result documented in this encounter Visit Diagnoses Not on filedocumented in this encounter Additional Health Concerns Assessment Noted Time PHQ-9 Depression Total Score: 9 06/18/19 24 11:06 AM EDT documented as of this encounter Care Teams Manager Foreign Relationship Specialty Start Date End Date Christiano Peguero MD 112 [facility] 110 [place] [address] PCP - General Family Medicine 10/09/22 Christiano Peguero MD 112 [facility] 110 [place] [address] PCP - [facility] 05/20/23 06/17/65 documented as of this encounter
--- OUTSIDE RECORDS SUMMARY | 2024-07-31 10:46 | XMS_ITS | Encounter Summary ---
Author Organization [facility] Address [address] [place] [address] Care Team Providers Care Online Media Director Name Role Phone Christiano Coppola MD Primary Care Provider [phone] Christiano Coppola MD Unavailable Encounter Details Date Type Department Care Team (Late st Contact Info) Description 12/28/2022 Orders Only [facility] [address] [facility] 110 [place] [phone] A, Unknown Practice [address] [place], [place] [address] Social History Tobacco Use Types Packs/Day Years [...] on filedocumented in this encounter Care Teams Online Media Director Relationship Specialty Start Date End Date Christiano Coppola MD [address] [facility] 110 [place] [address] PCP - General Family Medicine 10/09/22 Christiano Coppola MD [address] [facility] 110 [place], [place] [phone] [facility] 05/20/23 06/17/65 documented as of this encounter
--- OUTSIDE RECORDS SUMMARY | 2024-07-31 10:46 | XMS_ITS | Encounter Summary ---
Author Organization [facility] Address [address] [place] [address] Care Team Providers Care Sports Internship Name Role Phone Christiano Coppola MD Primary Care Provider [phone] Christiano Coppola MD Unavailable Encounter Details Date Type Department Care Team (Late st Contact Info) Description 06/27/2023 Abstract [facility] FM 112 [facility] 110 [place] [address] Christiano Coppola MD 112 [facility] 110 [place] [address] Social History Tobacco Use Types Packs/Day Years [...] documented as of this encounter Care Teams Sports Internship Relationship Specialty Start Date End Date Christiano Coppola MD 112 [facility] 110 [place] [address] PCP - General Family Medicine 10/09/22 Christiano Coppola MD [address] [place] [facility] 110 [place] [address] PCP - [facility] 05/20/23 06/17/65 documented as of this encounter
--- OUTSIDE RECORDS SUMMARY | 2024-07-31 10:46 | XMS_ITS | Encounter Summary ---
Author Organization [facility] Address [address] [place] [address] Care Team Providers Care Printing Equipment Mechanic Apprentice Name Role Phone Christiano Peguero MD Primary Care Provider [phone] Christiano Peguero MD Unavailable Encounter Details Date [...] EDT Narrative 11/29/2023 4:59 AM EDT The [address] [address] XRay Report Signed Patient: OLAF BRIONES MR#: [id number] : 1945 Acct:[id number] Age/Sex: 78 / M ADM Date: 11/28/23 Loc: RAD Attending Dr: Shanna Ivory M.D. Ordering Physician: Shanna Ivory M.D. Date of Service: 11/28/23 Procedure(s): XR abdomen 1V Accession Number(s): [id number] cc: CHRISTIANO PEGUERO ; Shanna Ivory M.D. The [address] [id number] Patient Name: OLAF BRIONES MRN: [id number] date: 1945 Sex: M Assigned Patient Location: RAD Current Patient Location: Accession/Order Number: [id number] Exam Date: 11/28/2023 08:32 Report Date: 11/29/2023 [...] M.D. Signed By: 11/29/23458 DD/ 5 TD/TT: Tapering Machine Operator: Procedure Note Radiology, Radiologist, MD - 11/29/2023 [place] [address] XRay Report Signed Patient: OLAF BRIONES WMR#: [id number] : 1945cct:[id number] Age/Sex: 78 / MADM Date: 11/28/23 Loc: RAD Attending Dr: Shanna Ivory M.D. Ordering Physician: Shanna Ivory M.D. Date of Service: 11/28/23 Procedure(s): XR abdomen 1V Accession Number(s): [id number] cc: CHRISTIANO PEGUERO ; Shanna Ivory M.D. [address] [id number] Patient Name: OLAF BRIONES MRN: [id number] date: 1945 Sex: M Assigned Patient Location: [facility] Current Patient Location: Accession/Order Number: [id number] Exam Date: 11/28/2023 08:32 Report Date: 11/29/2023 [...] M.D. Signed By:11/29/23 0459 DD/ 0456 TD/TT: Tapering Machine Operator: Generic External Data Provider [facility] Final Result documented in this encounter Visit Diagnoses Not on filedocumented in this encounter Additional Health Concerns Assessment Noted Time PHQ-9 Depression Total Score: 9 06/18/19 24 11:06 AM EDT documented as of this encounter Care Teams Printing Equipment Mechanic Apprentice Relationship Specialty Start Date End Date Christiano Peguero MD [address] [facility] 110 [place] [address] PCP - General Family Medicine 10/09/22 Christiano Peguero MD [address] [facility] 110 [place] [address] PCP - [facility] 05/20/23 06/17/65 documented as of this encounter
--- OUTSIDE RECORDS SUMMARY | 2024-07-31 10:46 | XMS_ITS | Encounter Summary ---
Author Organization [facility] Address [address] [place] [address] Care Team Providers Care Land Commissioner Name Role Phone Christiano Peguero MD Primary Care Provider [phone] Christiano Peguero MD Unavailable Encounter Details Date [...] EST Narrative 12/27/2022 11:37 PM EST The [address] [address] XRay Report Signed Patient: OLAF BRIONES MR#: [id number] : 1945 Acct:[id number] Age/Sex: 77 / M ADM Date: 12/27/22 Loc: RAD Attending Dr: David Scruggs NP Ordering Physician: David Scruggs NP Date of Service: 12/27/22 Procedure(s): XR lumbar spine 6V w bending Accession Number(s): [id number] cc: CHRISTIANO PEGUERO Anna NP The [place] [id number] Patient Name: OLAF BRIONES MRN: [id number] date: 1945 Sex: M Assigned Patient Location: RAD Current Patient Location: [facility] Accession/Order Number: [id number] Exam Date: 12/27/2022 15:20 Report Date: 12/27/2022 [...] M.D. Signed By: 12/27/222338 DD/ 36 TD/TT: Dental Assistant: Procedure Note Radiology, Radiologist, MD - 12/28/[address] [address] XRay Report Signed Patient: OLAF BRIONES WMR#: [id number] : 1945cct:[id number] Age/Sex: 77 / MADM Date: 12/27/22 Loc: IL[place] Attending Dr: David Scruggs NP Ordering Physician: David Scruggs NP Date of Service: 12/27/22 Procedure(s): XR lumbar spine 6V w bending Accession Number(s): [id number] cc: CHRISTIANO PEGUERO ; David Scruggs LANGUAGE ASST [place] [address] Patient Name: OLAF BRIONES MRN: [facility]:[id number] date: 1945 Sex: M Assigned Patient Location: [facility] Current Patient Location: [facility] Accession/Order Number: [id number] Exam Date: 12/27/2022 15:20 Report Date: 12/27/2022 [...] Scott M.D. Signed By:12/27/222338 DD/ 36 TD/TT: Dental Assistant: Generic External Data Provider [facility] Final Result documented in this encounter Visit Diagnoses Not on filedocumented in this encounter Care Teams Land Commissioner Relationship Specialty Start Date End Date Christiano Peguero MD [address] [place] [address] [address] PCP - General Family Medicine 10/09/22 Christiano Peguero MD [address] [place] [address] [address] [facility] 05/20/23 06/17/65 documented as of this encounter
--- OUTSIDE RECORDS SUMMARY | 2024-07-31 10:46 | XMS_ITS | Encounter Summary ---
Author Organization [facility] Address [address] [place] [address] Care Team Providers Care Delivery Analyst Name Role Phone Christiano Coppola MD Primary Care Provider [phone] Christiano Coppola MD Unavailable Encounter Details Date Type Department Care Team (Late st Contact Info) Description 03/13/2024 Abstract [facility] FM 112 [facility] 110 [place] [address] Christiano Coppola MD [address] [facility] 110 [place] [address] Social History Tobacco Use Types Packs/Day Years [...] documented as of this encounter Care Teams Delivery Analyst Relationship Specialty Start Date End Date Christiano Coppola MD [address] [facility] 110 [place] [address] PCP - General Family Medicine 10/09/22 Christiano Coppola MD [address] [facility] 110 [place] [address] PCP - [facility] 05/20/23 06/17/65 documented as of this encounter
--- OUTSIDE RECORDS SUMMARY | 2024-07-31 10:46 | XMS_ITS | Encounter Summary ---
Author Organization [facility] Address [address] [place] [address] Care Team Providers Care Children'S Zoo Caretaker Name Role Phone Christiano Peguero MD Primary Care Provider [phone] Christiano Peguero MD Unavailable Encounter Details Date Type Department Care Team (Late st Contact Info) Description 03/06/2023 Clinisync Result Encounter [facility] External Department Unsolicited Christiano Peguero MD [address] [facility] 110 [place] [address] Social History Tobacco Use Types [...] EST Narrative 03/07/2023 7:16 AM EST The [address] [address] Cardiac Rehab Report Signed Patient: OLAF BRIONES MR#: [id number] : 1945 Acct:[id number] Age/Sex: 77 / M ADM Date: 03/06/23 Loc: CR Attending Dr: NAHOMI BUENO Ordering Physician: CHRISTIANO PEGUERO Date of Service: 03/06/23 Procedure(s): ITP Accession Number(s): [id number] cc: The [facility] Test Date: 2023-03-06 Pat Name: OLAF BRIONES Department: Room: - Gender: Male Package Liner: : 1945 Requested By: CHRISTIANO PEGUERO Order Number: [id number] Jorden MD: TAIWO LYNNE Interpretive Statements Session Date: Electronically Signed On 03-07-2023 7:16:02 EST by TAIWO LYNNE Dictated By: Taiwo Lynne D.O. Signed By: 03/07/23 0716 03/07/23 0716 DD/ 1325 TD/TT: Merchandise Collector: Procedure Note Radiology, Radiologist, MD - 03/07/2023 [place] [address] Cardiac Rehab Report Signed Patient: OLAF BRIONES WMR#: [id number] : 1945cct:[id number] Age/Sex: 77 / MADM Date: 03/06/23 Loc: CR Attending Dr: NAHOMI BUENO Ordering Physician: CHRISTIANO PEGUERO Date of Service: 03/06/23 Procedure(s): ITP Accession Number(s): [id number] cc: The [facility] Test Date: 2023-03-06 Pat Name: OLAF BRIONES Department: Room: - Gender: Male Package Liner: : 1945 Requested By: CHRISTIANO PEGUERO Order Number: [id number] Jorden MD: TAIWO LYNNE Interpretive Statements Session Date: Electronically Signed On 03-07-2023 7:16:02 EST by TAIWO LYNNE Dictated By: Taiwo Lynne D.O. Signed By:03/07/23 0716 03/07/23 0716 DD/ 1325 TD/TT: Merchandise Collector: Christiano Peguero MD [facility] Final Result documented in this encounter Visit Diagnoses Not on filedocumented in this encounter Care Teams Children'S Zoo Caretaker Relationship Specialty Start Date End Date Christiano Peguero MD [address] [place] [address] PCP - General Family Medicine 10/09/22 Christiano Peguero MD [address] [place] [address] PCP - [facility] 05/20/23 06/17/65 documented as of this encounter
--- OUTSIDE RECORDS SUMMARY | 2024-07-31 10:46 | XMS_ITS | Clinical Summary ---
Author Organization [facility] Address [address] [place] [address] Care Team Providers Care Aircraft Armorer Name Role Phone Unavailable Primary Care Provider [...] patient's age to complete this topic Insurance [facility] UNITED [employer] MEDICARE
--- OUTSIDE RECORDS SUMMARY | 2024-07-31 10:46 | XMS_ITS | Encounter Summary ---
Author Organization [facility] Address [address] [place] [address] Care Team Providers Care Mash Tub Cooker Name Role Phone Christiano Coppola MD Primary Care Provider [phone] Christiano Coppola MD Unavailable Encounter Details Date Type Department Care Team (Late st Contact Info) Description 03/18/2023 Abstract [facility] FM [address] [facility] 110 [place] [phone] Christiano Coppola MD [address] [facility] 110 [place] [address] Social History Tobacco Use Types Packs/Day Years [...] on filedocumented in this encounter Care Teams Mash Tub Cooker Relationship Specialty Start Date End Date Christiano Coppola MD [address] [facility] 110 [place] [address] PCP - General Family Medicine 10/09/22 Christiano Coppola MD [address] [facility] 110 [place] [address] PCP - [facility] 05/20/23 06/17/65 documented as of this encounter
--- OUTSIDE RECORDS SUMMARY | 2024-07-31 10:46 | XMS_ITS | Encounter Summary ---
Author Organization [facility] Address [address] [facility] [place] [address] Care Team Providers Care Organizational Research Consultant Name Role Phone Christiano Coppola MD Primary Care Provider [phone] Christiano Coppola MD Unavailable Encounter Details Date Type Department Care Team (Late st Contact Info) Description 12/27/2022 Abstract [facility] FM [address] [facility] 110 [place] [address] Christiano Coppola MD [address] [facility] 110 [place] [address] Social History Tobacco Use Types Packs/Day Years [...] on filedocumented in this encounter Care Teams Organizational Research Consultant Relationship Specialty Start Date End Date Christiano Coppola MD [address] [facility] 110 [place] [address] PCP - General Family Medicine 10/09/22 Christiano Coppola MD [address] [facility] 110 [place] [address] PCP - [facility] 05/20/23 06/17/65 documented as of this encounter
--- OUTSIDE RECORDS SUMMARY | 2024-07-31 10:46 | XMS_ITS | Encounter Summary ---
Author Organization [facility] Address [address] [facility] [place] [address] Care Team Providers Care Technical Service Representative Name Role Phone Christiano Coppola MD Primary Care Provider [phone] Christiano Coppola MD Unavailable Encounter Details Date Type Department Care Team (Late st Contact Info) Description 02/13/2023 Abstract [facility] FM [address] [facility] 110 [place] [phone] Christiano Coppola MD [address] [facility] 110 [place] [address] Social History Tobacco Use Types Packs/Day Years [...] on filedocumented in this encounter Care Teams Technical Service Representative Relationship Specialty Start Date End Date Christiano Coppola MD [address] [facility] 110 [place] [address] PCP - General Family Medicine 10/09/22 Christiano Coppola MD [address] [facility] 110 [place] [address] PCP - [facility] 05/20/23 06/17/65 documented as of this encounter
--- OUTSIDE RECORDS SUMMARY | 2024-07-31 10:46 | XMS_ITS | Referral Summary ---
Author Organization The [facility] Address [address] [place] [address] Care Team Providers Care Oracle Adf Developer Name Role Phone Unavailable Primary Care Provider [...] Plan of Treatment Not on file Insurance [facility] UNITED HEALTHCARE MEDICARE
--- OUTSIDE RECORDS SUMMARY | 2024-07-31 10:46 | XMS_ITS | Encounter Summary ---
Author Organization [facility] Address [address] [place] [address] Care Team Providers Care Sr. Director Product Management Name Role Phone Christiano Coppola MD Primary Care Provider [phone] Christiano Coppola MD Unavailable Encounter Details Date [...] AM EDT Narrative 09/23/2023 7:48 AM EDT [address] [address] Respiratory Report Signed Patient: OLAF BRIONES MR#: [id number] : 1945 Acct:[id number] Age/Sex: 78 / M ADM Date: 09/13/23 Loc: CARD Attending Dr: Non-Staff Physician Villatoro Ordering Physician: Sisi Martinez M.D. Date of Service: 09/13/23 Procedure(s): RT pulmonary function test Accession Number(s): [id number] cc: [facility] Test Date: 2023-09-13 Pat Name: OLAF BRIONES Department: Room: - Gender: Male Calcine Furnace Tender: Corrine Salinas,RN LPN LVN : 1945 Requested By: [id number] Order Number: [id number] Reading MD: Martin Tucker Interpretive Statements Spirometry [...] Signed By: 09/23/23 0748 DD/ 0744 TD/TT: Grocery Clerk: Procedure Note Radiology, Radiologist, - 09/23/2023 [place] [address] Respiratory Report Signed Patient: OLAF BRIONES WMR#: [id number] : 1945cct:[id number] Age/Sex: 78 / MADM Date: 09/13/23 Loc: CARD Attending Dr: Non-Staff Physician Villatoro Ordering Physician: Sisi Martinez M.D. Date of Service: 09/13/23 Procedure(s): RT pulmonary function test Accession Number(s): [id number] cc: [facility] Test Date: 2023-09-13 Pat Name: OLAF BRIONES Department: Room: - Gender: Male Calcine Furnace Tender: Corrine SalinasTOYA : 1945 Requested By: [id number] Order Number: [id number] Reading MD: Martin Tucker Interpretive Statements Spirometry [...] Tucker D.O. Signed By:09/23/23 0748 DD/ TD/TT: Grocery Clerk: us Generic External Data Provider [facility] Final Result documented in this encounter Visit Diagnoses Not on filedocumented in this encounter Additional Health Concerns Assessment Noted Time PHQ-9 Depression Total Score: 9 06/18/19 24 11:06 AM EDT documented as of this encounter Care Teams Sr. Director Product Management Relationship Specialty Start Date End Date Christiano Coppola MD 112 [facility] 110 [place] [address] PCP - General Family Medicine 10/09/22 Christiano Coppola MD [address] [facility] 110 [place] [address] PCP - [facility] 05/20/23 06/17/65 documented as of this encounter
--- OUTSIDE RECORDS SUMMARY | 2024-07-31 10:46 | XMS_ITS | Encounter Summary ---
Author Organization [facility] Address [address] [facility] [place] [address] Care Team Providers Care Plastic Sheeting Cutter Name Role Phone Christiano Coppola MD Primary Care Provider [phone] Christiano Coppola MD Unavailable Encounter Details Date Type Department Care Team (Late st Contact Info) Description 02/04/2023 Abstract [facility] [address] [facility] 110 [place] [phone] Christiano Coppola MD [address] [facility] 110 [place] [address] Social History Tobacco Use Types Packs/Day Years [...] on filedocumented in this encounter Care Teams Plastic Sheeting Cutter Relationship Specialty Start Date End Date Christiano Coppola MD [address] [facility] 110 [place] [address] PCP - General Family Medicine 10/09/22 Christiano Coppola MD [address] [facility] 110 [place] [address] PCP - [facility] 05/20/23 06/17/65 documented as of this encounter
--- OUTSIDE RECORDS SUMMARY | 2024-07-31 10:46 | XMS_ITS | Encounter Summary ---
Author Organization [facility] Address [address] [place] [address] Care Team Providers Care Shelter Monitor Name Role Phone Christiano Coppola MD Primary Care Provider [phone] Christiano Coppola MD Unavailable Encounter Details Date Type Department Care Team (Late st Contact Info) Description 03/13/2023 Abstract [facility] [address] [facility] 110 [place] [phone] Christiano Coppola MD [address] [facility] 110 [place] [address] Social History Tobacco Use Types Packs/Day Years [...] on filedocumented in this encounter Care Teams Shelter Monitor Relationship Specialty Start Date End Date Christiano Coppola MD [address] [facility] [address] [place] [address] PCP - General Family Medicine 10/09/22 Christiano Coppola MD [address] [facility] 110 [place] [address] PCP - [facility] 05/20/23 06/17/65 documented as of this encounter
--- OUTSIDE RECORDS SUMMARY | 2024-07-31 10:46 | XMS_ITS | Encounter Summary ---
Author Organization [facility] Address [address] [place] [address] Care Team Providers Care Horticultural Specialty Grower Inside Name Role Phone Christiano Coppola MD Primary Care Provider [phone] Christiano Coppola MD Unavailable Encounter Details Date Type Department Care Team (Late st Contact Info) Description 02/13/2023 Abstract [facility] [address] [facility] 110 [place] [phone] Christiano Coppola MD [address] [facility] 110 [place] [address] Social History Tobacco Use Types Packs/Day Years [...] on filedocumented in this encounter Care Teams Horticultural Specialty Grower Inside Relationship Specialty Start Date End Date Christiano Coppola MD [address] [facility] 110 [place] [address] PCP - General Family Medicine 10/09/22 Christiano Coppola MD [address] [facility] 110 [place] [address] PCP - [facility] 05/20/23 06/17/65 documented as of this encounter
--- OUTSIDE RECORDS SUMMARY | 2024-07-31 10:46 | XMS_ITS | Encounter Summary ---
Author Organization [facility] Address [address] [place] [address] Care Team Providers Care Red Hat Engineer Name Role Phone hCristiano Coppola MD Primary Care Provider [phone] Christiano Coppola MD Unavailable Reason for Visit * Reason Comments Med Refill Encounter Details Date Type Department Care Team (Late st Contact Info) Description 07/20/2024 Refill [facility] [address] [facility] 110 [place] [phone] Lucinda Demarco, PA [address] [facility] 110 [place] [address] Current mild episode of major depressive disorder [...] documented as of this encounter Care Teams Red Hat Engineer Relationship Specialty Start Date End Date Christiano Coppola MD 112 [facility] 110 [place] [address] PCP - General Family Medicine 10/09/22 Christiano Coppola MD [address] [facility] 110 [place] [address] [facility] 05/20/23 06/17/65 documented as of this encounter
--- OUTSIDE RECORDS SUMMARY | 2024-07-31 10:46 | XMS_ITS | Encounter Summary ---
Author Organization [facility] Address [address] [place] [address] Care Team Providers Care Sustainable Design Consultant Name Role Phone Christiano Peguero MD Primary Care Provider [phone] Christiano Peguero MD Unavailable Encounter Details Date [...] EST Narrative 01/17/2023 12:22 PM EST The [address] [address] Magnetic Resonance Report Signed Patient: OLAF BRIONES MR#: [id number] : 1945 Acct:[id number] Age/Sex: 77 / M ADM Date: 01/17/23 Loc: MRI Attending Dr: David Scruggs NP Ordering Physician: David Scruggs NP Date of Service: 01/17/23 Procedure(s): MR lumbar spine wo con Accession Number(s): [id number] cc: CHRISTIANO PEGUERO Anna NP [address], [place] [address] Patient Name: OLAF BRIONES MRN: [id number] date: 1945 Sex: M Assigned Patient Location: MRI Current Patient Location: MRI Accession/Order Number: [id number] Exam Date: 01/17/2023 11:00 Report Date: 01/17/2023 [...] Signed By: 01/17/23 1225 DD/ 1222 TD/TT: Tree Warden: Procedure Note Radiology, Radiologist, MD - 01/17/2023 [place] [address] Magnetic Resonance Report Signed Patient: OLAF BRIONES WMR#: [id number] : 1945cct:[id number] Age/Sex: 77 / MADM Date: 01/17/23 Loc: MRI Attending Dr: David Scruggs SECURITY SUPPORT ANALYST Ordering Physician: David Scruggs NP Date of Service: 01/17/23 Procedure(s): MR lumbar spine wo con Accession Number(s): [id number] cc: CHRISTIANO PEGUERO ; David Scruggs NP [place] [address] Patient Name: OLAF BRIONES MRN: [id number] date: 1945 Sex: M Assigned Patient Location: MRI Current Patient Location: MRI Accession/Order Number: [id number] Exam Date: 01/17/2023 11:00 Report Date: 01/17/2023 [...] M.D. Signed By:01/17/23 1225 DD/ 1222 TD/TT: Tree Warden: Generic External Data Provider [facility] Final Result documented in this encounter Visit Diagnoses Not on filedocumented in this encounter Care Teams Sustainable Design Consultant Relationship Specialty Start Date End Date Christiano Peguero MD [address] [address] PCP - General Family Medicine 10/09/22 Christiano Peguero MD [address] [address] [facility] 05/20/23 06/17/65 documented as of this encounter
--- NOTE | 2024-07-31 10:47 | MR_ITS ---
The [address] [address] Patient Name: OLAF BROINES MRN: [id number] date: 1945 Sex: M Assigned Patient Location: MRI Current Patient Location: MRI Accession/Order Number: [id number] Exam Date: 07/31/2024 11:52 Report Date: 07/31/2024 12:07 At the request of: DAVID SCRUGGS NP Procedure: MR lumbar spine wo con MRI LUMBAR SPINE WITHOUT CONTRAST COMPARISON: 01/17/2023 CLINICAL DATA: Chronic back pain with radiculopathy bilaterally and weakness. Multiecho imaging in the axial and sagittal plane was performed without contrast. There is continued slight anterolisthesis of L4 and L5. Heterogeneous bone marrow is again noted. There are no acute compression fractures or marrow edema. The conus medullaris is within normal limits for caliber, position and signal intensity. Bilateral renal cysts are seen. There are no other paraspinal soft tissue abnormalities. At T12-L1, there is no disc disease or stenosis. At L1-2, there is slight loss of disc height. Mild annular disc bulging is again visualized greater extending laterally. Mild thecal sac effacement is present. Moderate bilateral foraminal encroachment is noted. At L2-3, the disc is within normal limits for height. Annular disc bulging is again visualized. There is minor facet and ligamentous hypertrophy. There is mild to moderate thecal sac effacement and bilateral foraminal encroachment. At L3-4, the disc is within normal limits for height. There is annular disc bulging with extension laterally on both sides. There is facet and ligamentous hypertrophy with severe central stenosis similar to the prior. There is moderate foraminal encroachment on the right and mild to moderate on the left. At L4-5, there is annular disc bulging. There is facet and ligamentous hypertrophy with severe central stenosis and near complete effacement of the thecal sac. There is at least moderate narrowing of the neural foramen on both sides, greater on the left. At the lumbosacral junction no significant disc bulge or herniation is present. There is mild facet disease. No stenosis is identified. MR/MR lumbar spine wo con IMPRESSION: CONTINUED HETEROGENEOUS BONE MARROW. 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 Impression dictated by: Lucinda Monreal M.D. 07/31/2024 12:07 PM Dictation Location: [place] [address] Electronically authenticated by: [id number] Y Date: 07/31/2024 12:07
--- OUTSIDE RECORDS SUMMARY | 2024-07-31 10:47 | XMS_ITS | Encounter Summary ---
Author Organization [facility] Address [address] [place] [address] Care Team Providers Care Tool And Die Maker Level Five Name Role Phone Christiano Peguero MD Primary Care Provider [phone] Christiano Peguero MD Unavailable Encounter Details Date [...] EDT Narrative 11/20/2022 11:58 AM EDT The [address] [address] XRay Report Signed Patient: OLAF BRIONES MR#: [id number] : 1945 Acct:[id number] Age/Sex: 77 / M ADM Date: 11/20/22 Loc: RAD Attending Dr: Shanna Ivory M.D. Ordering Physician: Shanna Ivory M.D. Date of Service: 11/20/22 Procedure(s): XR abdomen 1V Accession Number(s): [id number] cc: CHRISTIANO PEGUERO ; Shanna Ivory M.D. The [address] [address] Patient Name: OLAF BRIONES MRN: [id number] date: 1945 Sex: M Assigned Patient Location: [facility] Current Patient Location: RAD Accession/Order Number: [id number] Exam Date: 11/20/2022 11:02 Report Date: 11/20/2022 [...] Signed By: 11/20/22 1201 DD/ 1158 TD/TT: Sql Architect: Procedure Note Radiology, Radiologist, MD - 11/20/2022 [place] [address] XRay Report Signed Patient: OLAF BRIONES WMR#: [id number] : 1945cct:[id number] Age/Sex: 77 / MADM Date: 11/20/22 Loc: RAD Attending Dr: Shanna Ivory M.D. Ordering Physician: Shanna Ivory M.D. Date of Service: 11/20/22 Procedure(s): XR abdomen 1V Accession Number(s): [id number] cc: CHRISTIANO PEGUERO Patrick M.D. The [address] [id number] Patient Name: OLAF BRIONES MRN: [id number] date: 1945 Sex: M Assigned Patient Location: [facility] Current Patient Location: RAD Accession/Order Number: [id number] Exam Date: 11/20/2022 11:02 Report Date: 11/20/2022 [...] M.D. Signed By:11/20/22 1201 DD/ 1158 TD/TT: Sql Architect: us Generic External Data Provider [facility] Final Result documented in this encounter Visit Diagnoses Not on filedocumented in this encounter Care Teams Tool And Die Maker Level Five Relationship Specialty Start Date End Date Christiano Peguero MD [address] [facility] 110 [place] [address] PCP - General Family Medicine 10/09/22 Christiano Peguero MD [address] [facility] 110 [place] [address] PCP - [facility] 05/20/23 06/17/65 documented as of this encounter
--- OUTSIDE RECORDS SUMMARY | 2024-07-31 10:47 | XMS_ITS | Encounter Summary ---
Author Organization [facility] Address [address] [facility] [place] [address] Care Team Providers Care Captain Waiter/Waitress Name Role Phone Christiano Coppola MD Primary Care Provider [phone] Christiano Coppola MD Unavailable Encounter Details Date Type Department Care Team (Late st Contact Info) Description 10/09/2022 Abstract [facility] [address] [facility] 110 [place] [phone] Christiano Coppola MD [address] [facility] 110 [place] [address] Social History Tobacco Use Types Packs/Day Years [...] on filedocumented in this encounter Care Teams Captain Waiter/Waitress Relationship Specialty Start Date End Date Christiano Coppola MD [address] [facility] 110 [place] [address] PCP - General Family Medicine 10/09/22 Christiano Coppola MD [address] [facility] 110 [place] [address] PCP - [facility] 05/20/23 06/17/65 documented as of this encounter
--- OUTSIDE RECORDS SUMMARY | 2024-07-31 10:47 | XMS_ITS | Encounter Summary ---
Author Organization [facility] Address [address] [place] [address] Care Team Providers Care Prison Teacher Name Role Phone Christiano Peguero MD Primary Care Provider [phone] Christiano Peguero MD Unavailable Encounter Details Date Type Department Care Team (Late st Contact Info) Description 06/11/2023 Clinisync Result Encounter [facility] External Department Unsolicited Christiano Peguero MD [address] [facility] 110 [place] [address] Social History Tobacco Use Types [...] EDT Narrative 06/11/2023 1:28 PM EDT The [address] [address] Nuclear Medicine Report Signed Patient: OLAF BRIONES MR#: [id number] : 1945 Acct:[id number] Age/Sex: 77 / M ADM Date: 06/11/23 Loc: NM Attending Dr: CHRISTIANO PEGUERO Ordering Physician: CHRISTIANO PEGUERO Date of Service: 06/11/23 Procedure(s): NM tara perf SPECT rest str Accession Number(s): [id number] cc: CHRISTIANO PEGUERO Patient Name: OLAF BRIONES MR#: [id number] : 1945 Exam Date: 06/11/2023 Ordering Doctor: [...] Signed By: 06/11/23 1328 DD/ 1327 TD/TT: Manager Perioperative: Procedure Note Radiology, Radiologist, - 06/12/2023 [place] [address] Nuclear Medicine Report Signed Patient: OLAF BRIONES WMR#: [id number] : 1945cct:[id number] Age/Sex: 77 / MADM Date: 06/11/23 Loc: NM Attending Dr: CHRISTIANO PEGUERO Ordering Physician: CHRISTIANO PEGUERO Date of Service: 06/11/23 Procedure(s): NM tara perf SPECT rest str Accession Number(s): [id number] cc: RAMAN PEGUERODEV Patient Name: OLAF BRIONES MR#: [id number] : 1945 Exam Date: 06/11/2023 Ordering Doctor: [...] M.D. Signed By:06/11/23 1328 DD/ 1327 TD/TT: Manager Perioperative: us Christiano Peguero MD [facility] Final Result documented in this encounter Visit Diagnoses Not on filedocumented in this encounter Care Teams Prison Teacher Relationship Specialty Start Date End Date Christiano Peguero MD [address] [facility] 110 [place] [address] PCP - General Family Medicine 10/09/22 Christiano Peguero MD [address] [facility] 110 [place] [address] PCP - [facility] 05/20/23 06/17/65 documented as of this encounter
--- OUTSIDE RECORDS SUMMARY | 2024-07-31 10:47 | XMS_ITS | Encounter Summary ---
Author Organization [facility] Address [address] [place] [address] Care Team Providers Care Fisher Hoop Net Name Role Phone Christiano Coppola MD Primary Care Provider [phone] Christiano Coppola MD Unavailable Encounter Details Date Type Department Care Team (Late st Contact Info) Description 11/21/2022 Orders Only [facility] [address] [facility] 110 [place] [address] A, Unknown Practice [address] [place], [place] [address] Social History Tobacco Use Types Packs/Day Years [...] on filedocumented in this encounter Care Teams Fisher Hoop Net Relationship Specialty Start Date End Date Christiano Coppola MD [address] [facility] [address] [place], [place] [id number] PCP - General Family Medicine 10/09/22 Christiano Coppola MD [address] [facility] [address] [place] [address] [facility] 05/20/23 06/17/65 documented as of this encounter
== END 2024-07-31 10:44 | disposition home or self-care (01) ==
LOC: MRI 10:43
PROVIDERS: PCP Family Medicine; Visit Provider Nurse Practitioner
DX: M48.062 Spinal stenosis, lumbar region with neurogenic claudication (principal); G83.4 Cauda equina syndrome; M51.369 Other intervertebral disc degeneration, lumbar region without mention of lumbar back pain or lower extremity pain
CPT/HCPCS: 72148

== ENCOUNTER 2024-08-06 11:00 | Outpatient (OUT) | payer MEDICARE, SELFPAY ==
--- OUTSIDE RECORDS SUMMARY | 2024-07-24 07:40 | XMS_ITS ---
Author Organization [facility] Address [address] [place] [address] Care Team Providers Care Aircraft Engine Cylinder Mechanic Name Role Phone Christiano Coppola MD Primary Care Provider UnavailFannie Honeycutt Unavailable [phone] REASON FOR VISIT LUMBAR PAIN Encounters Encounter Location Date Provider Diagnosis [facility] Office [address] [place] [address] [place] [address] 07/24/2024 Fannie Norton Plan Of Treatment No Information Progress Notes * OLAF BRIONES WDOB:1945 (79 yo M)Acc No.[id number]:07/24/2024 Patient: OLAF SHI Provider: Yue Rangel MD, PhD :1945 A ge:79 Y S ex:Male Date:07/24/2024 Address:[facility] [place], [id number] Pcp:Christiano Coppola MD Subjective: * Chief Complaints: * 1 . LUMBAR PAIN. * Medical History: Objective: * Vitals: Assessment: Plan: * Treatment: Forms: * Images: * Electronic signature of Felicia Norton MD, PHD on 08/06/2024 at 02:10 PM EDT Sign off status: Pending * Provider: Yue Rangel MD, PhD Date: 07/24/2024 Generated for nAtwan ng/Fageovani/eTransmitting on: 08/06/2024 02:10 PM EDT
--- NOTE | 2024-08-06 13:51 | PM.CN ---
Consult Note: HPI Data of Consult Patient: known to practice within the last 3 years Requesting Physician: Ria Kirby NP Primary Care Provider: DAV PEGUERO Consult Narrative Reason for consult: low back and BLE pain Narrative: Thomas Thorne a pleasant 79 year old male presents for evaluation of moderate to severe low back and BLE pain, hx of severe stenosis and degenerative changes. historically has responded very well to interventional therapy, last KATIE provided >50% improvement greater than 3 months. Since last visit he has noticed increased pain radiating into his groin and penis which makes him feel he has to urinate. Pain 2/10 aching increasing to 8/10 with standing, walking, twisting, pushing, pulling. pain improves significantly with forward flexion and sitting. cc:: CC: Ria Kirby NP Review of Systems ROS Status of ROS 10 or more systems reviewed and unremarkable except as noted in history and below [facility] Medical History Enlarged prostate ?N40.0 - Benign prostatic hyperplasia without lower urinary tract symptoms (ICD-10) Low back pain ?M54.50 - Low back pain, unspecified (ICD-10) Hypertension ?I10 - Essential (primary) hypertension (ICD-10) Kidney stone Surgical History History of transurethral resection of prostate ?Z98.890 - Other specified postprocedural states (ICD-10) ?Z90.79 - Acquired absence of other genital organ(s) (ICD-10) Meds Home Medications and Allergies Home Medications ?Medication ?Instructions ?Recorded ?Confirmed ?Type allopurinol 300 mg tablet 300 mg PO DAILY 01/23/23 07/22/23 History amlodipine 5 mg tablet 5 mg PO DAILY 01/23/23 07/22/23 History aspirin 81 mg tablet,delayed 81 mg PO DAILY 01/23/23 07/22/23 History release atorvastatin 80 mg tablet 40 mg PO DAILY 01/23/23 07/22/23 History carvedilol 6.25 mg tablet 6.25 mg PO Q12H 01/23/23 07/22/23 History lisinopril 2.5 mg tablet 2.5 mg PO DAILY 01/23/23 07/22/23 History nitroglycerin 0.4 mg sublingual 0.4 mg sublingual Q5M PRN chest 01/23/23 07/22/23 History tablet pain ticagrelor 90 mg tablet (Brilinta) 90 mg PO Q12H 01/23/23 07/22/23 History Allergies Allergy/AdvReac Type Severity Reaction Status Date / Time amoxicillin Allergy Unknown Verified 07/22/23 10:03 albuterol Allergy Verified 07/22/23 10:03 hydrochlorothiazide Allergy Verified 07/22/23 10:03 Exam Constitutional Documenting provider has reviewed patient's vital signs: yes Common normals: no apparent distress, oriented x3, healthy appearing, alert and well nourished General appearance: cooperative HENMT Common normals: normocephalic, hearing grossly normal bilaterally and moist oral mucous membranes Head and scalp: normocephalic Eye Common normals: PERRL Pupil: PERRL Neck & C-Spine Common normals: full ROM General: normal visual inspection Chest Common normals: inspection of chest normal Respiratory Common normals: normal respiratory effort, no retractions and no use of accessory muscles Back & Pelvis Lumbar spine/lower back: pain with ROM, straight leg raise positive right and straight leg raise positive left Sacroiliac joints: SI joints normal Other: strength 4/5 in BLE decreased sensation bilateral L4,5,S1 Extremity Common normals: normal to inspection and full ROM Other: negative internal/external rotation of bilateral hips Neuro Common normals: oriented x3 Sensorium/orientation: alert Psych Common normals: mental status grossly normal, thought process normal, cooperative, affect normal, speech normal and activity/motor behavior normal Speech: normal speech Thought process: normal thought process Results Imaging Lumbar MRI: Attestation: I have reviewed the pertinent imaging results. Radiologist's impression: There is continued slight anterolisthesis of L4 and L5. Heterogeneous bone marrow is again noted. There are no acute compression fractures or marrow edema. The conus medullaris is within normal limits for caliber, position and signal intensity. Bilateral renal cysts are seen. There are no other paraspinal soft tissue abnormalities. At T12-L1, there is no disc disease or stenosis. At L1-2, there is slight loss of disc height. Mild annular disc bulging is again visualized greater extending laterally. Mild thecal sac effacement is present. Moderate bilateral foraminal encroachment is noted. At L2-3, the disc is within normal limits for height. Annular disc bulging is again visualized. There is minor facet and ligamentous hypertrophy. There is mild to moderate thecal sac effacement and bilateral foraminal encroachment. At L3-4, the disc is within normal limits for height. There is annular disc bulging with extension laterally on both sides. There is facet and ligamentous hypertrophy with severe central stenosis similar to the prior. There is moderate foraminal encroachment on the right and mild to moderate on the left. At L4-5, there is annular disc bulging. There is facet and ligamentous hypertrophy with severe central stenosis and near complete effacement of the thecal sac. There is at least moderate narrowing of the neural foramen on both sides, greater on the left. At the lumbosacral junction no significant disc bulge or herniation is present. There is mild facet disease. No stenosis is identified. Additional Findings Additional findings: If on a controlled substance or opioids, I have checked an [place]AR[place] report on this patient and there are no aberrancies noted in the prescribing history.??If on a controlled substance or opioid a drug screen was completed and reviewed within the last year, and if there has not been a drug screen completed we ordered one today to monitor higher risk, state monitored pain medication use. As part of providing excellent, safe, comprehensive care, the following was completed at our patient's visit: 1. A medication reconciliation and review to ensure accurate knowledge of current/active medications, including asking our patients to inform us about any kebb-hau-jjuglza medications or herbal remedies/nutritional supplements/alternative remedies. 2. A review to specifically ensure our patients have had annual screening for screening for depression, screening for tobacco use, and screening for unhealthy alcohol use. For concerning screenings had a discussion with the patient, provided patient education, and recommended follow-up with primary care provider when appropriate. If patient noted with a risk of falling, they received education on strength, gait, and balance training to prevent future risk of falling. Portions of this note may have been carried over from the previous visit and updated as appropriate. Please note this office utilizes paper charting in addition to the electronic medical record. A list of current medications, vitals, and PMH is available there as the clinical staff outside of myself do not have access to [employer] charting during the clinic day operations. As part of providing quality comprehensive care the current medications, vitals, and PMH were reviewed in the paper chart. Assessment and Plan Assessment and Plan (1) Lumbar stenosis with neurogenic claudication: Assessment and Plan: The patient has had over 3 months of moderate to severe low back and BLE pain with functional impairment and inadequate response to conservative care including NSAIDS (unless there are contraindication such as concurrent blood thinners), multiple oral or topical pain medications, and home exercise program/physical therapy.? Patient has completed >6 weeks of guided home exercise program and/or formal physical therapy program without relief of their symptoms.? The Oswestry Disability Index was completed, and the patient scored a 14%.? We discussed the risks and benefits of the procedure with the patient, and we are NOT planning on using sedation as outlined in the guidelines from Medicare unless there is a documented reason that sedation would be strongly recommended.?? Plan lumbar MRI reviewed with pt. will refer to Dr Drew NS for evaluation although pt is not interested in surgical intervention i would like him to be evaluated to discuss risks/benefits. proceed with bilateral L4/5 TFESI under fluoroscopy for lumbar stenosis with NC at this time. f/u 2 weeks after injection
--- OUTSIDE RECORDS SUMMARY | 2024-08-06 14:10 | XMS_ITS | Encounter Summary ---
Author Organization [facility] Address [address] [place] [address] Care Team Providers Care Buffing Machine Operator Semiautomatic Name Role Phone Christiano Coppola MD Primary Care Provider [phone] Christiano Coppola MD Unavailable Encounter Details Date Type Department Care Team (Late st Contact Info) Description 03/13/2024 Abstract [facility] 112 [facility] 110 [place] [phone] Christiano Coppola MD [address] [facility] 110 [place] [address] Social History Tobacco Use Types Packs/Day Years [...] documented as of this encounter Care Teams Buffing Machine Operator Semiautomatic Relationship Specialty Start Date End Date Christiano Coppola MD [address] [facility] 110 [place] [address] PCP - General Family Medicine 10/09/22 Christiano Coppola MD [address] [facility] 110 [place] [address] PCP - [facility] 05/20/23 06/17/65 documented as of this encounter
--- OUTSIDE RECORDS SUMMARY | 2024-08-06 14:10 | XMS_ITS | Encounter Summary ---
Author Organization [facility] Address [address] [place] [address] Care Team Providers Care Beam Dyer Operator Name Role Phone Christiano Peguero MD [...] EDT Narrative 09/13/2023 6:21 PM EDT The [address] [address] XRay Report Signed Patient: OLAF BRIONES MR#: [id number] : 1945 Acct:[id number] Age/Sex: 78 / M ADM Date: 09/13/23 Loc: CARD Attending Dr: Eliana-Staff Physician Villatoro Ordering Physician: Sisi Martinez M.D. Date of Service: 09/13/23 Procedure(s): XR chest 2V Accession Number(s): [id number] cc: CHRISTIANO PEGUERO ; PhysicianSisi M.D. The [address] [address] Patient Name: OLAF BRIONES MRN: [id number] date: 1945 Sex: M Assigned Patient Location: CARD Current Patient Location: CARD Accession/Order Number: [id number] Exam Date: 09/13/2023 08:42 Report Date: 09/13/2023 [...] M.D. Signed By: 09/13/231820 DD/ 18 TD/TT: Building Trades Instructor: Procedure Note Radiology, Radiologist, MD - 09/16/2023 [place] [address] XRay Report Signed Patient: OLAF BRIONES WMR#: [id number] : 1945cct:[id number] Age/Sex: 78 / MADM Date: 09/13/23 Loc: CARD Attending Dr: Non-Staff Physician Villatoro Ordering Physician: Sisi Martinez M.D. Date of Service: 09/13/23 Procedure(s): XR chest 2V Accession Number(s): [id number] cc: CHRISTIANO PEGUERO ; PhysicianSisi M.D. The [address] [address] Patient Name: OLAF BRIONES MRN: [facility]:[id number] date: 1945 Sex: M Assigned Patient Location: CARD Current Patient Location: CARD Accession/Order Number: [id number] Exam Date: 09/13/2023 08:42 Report Date: 09/13/2023 [...] Weir M.D. Signed By:09/13/231820 DD/ 18 TD/TT: Building Trades Instructor: Generic External Data Provider [facility] Final Result documented in this encounter Visit Diagnoses Not on filedocumented in this encounter Additional Health Concerns Assessment Noted Time PHQ-9 Depression Total Score: 9 06/18/19 24 11:06 AM EDT documented as of this encounter Care Teams Beam Dyer Operator Relationship Specialty Start Date End Date Christiano Peguero MD 112 [facility] 110 [place] [address] PCP - General Family Medicine 10/09/22 Christiano Peguero MD [address] [facility] 110 [place] [address] PCP - [facility] 05/20/23 06/17/65 documented as of this encounter
--- OUTSIDE RECORDS SUMMARY | 2024-08-06 14:10 | XMS_ITS | Encounter Summary ---
Author Organization [facility] Address [address] [place] [address] Care Team Providers Care Business Asst Name Role Phone Christiano Coppola MD Primary Care Provider [phone] Christiano Coppola MD Unavailable Encounter Details Date Type Department Care Team (Late st Contact Info) Description 12/28/2022 Orders Only [facility] [address] [facility] 110 [place] [id number] A, Unknown Practice [address] [place], [place] [address] Social History Tobacco Use Types Packs/Day Years [...] on filedocumented in this encounter Care Teams Business Asst Relationship Specialty Start Date End Date Christiano Coppola MD [address] [facility] 110 [place] [address] PCP - General Family Medicine 10/09/22 Christiano Coppola MD [address] [facility] 110 [place], [place] [id number] [facility] 05/20/23 06/17/65 documented as of this encounter
--- OUTSIDE RECORDS SUMMARY | 2024-08-06 14:10 | XMS_ITS | Encounter Summary ---
Author Organization [facility] Address [address] [facility] [place] [address] Care Team Providers Care Circuit Design Engineer Name Role Phone Christiano Coppola MD Primary Care Provider [phone] Christiano Coppola MD Unavailable Encounter Details Date Type Department Care Team (Late st Contact Info) Description 02/04/2023 Abstract [facility] [address] [facility] 110 [place] [phone] Christiano Coppola MD [address] [facility] 110 [place] [address] Social History Tobacco Use Types Packs/Day Years [...] on filedocumented in this encounter Care Teams Circuit Design Engineer Relationship Specialty Start Date End Date Christiano Coppola MD [address] [facility] 110 [place] [address] PCP - General Family Medicine 10/09/22 Christiano Coppola MD [address] [facility] 110 [place] [address] PCP - [facility] 05/20/23 06/17/65 documented as of this encounter
--- OUTSIDE RECORDS SUMMARY | 2024-08-06 14:10 | XMS_ITS | Encounter Summary ---
Author Organization [facility] Address [address] [place] [address] Care Team Providers Care Wooden Barrel Mechanic Name Role Phone Christiano Peguero MD Primary Care Provider [phone] Christiano Peguero MD Unavailable Encounter Details Date [...] EDT Narrative 11/29/2023 4:59 AM EDT The [address] [address] XRay Report Signed Patient: OLAF BRIONES MR#: [id number] : 1945 Acct:[id number] Age/Sex: 78 / M ADM Date: 11/28/23 Loc: RAD Attending Dr: Shanna Ivory M.D. Ordering Physician: Shanna Ivory M.D. Date of Service: 11/28/23 Procedure(s): XR abdomen 1V Accession Number(s): [id number] cc: CHRISTIANO PEGUERO ; Shanna Ivory M.D. The [address] [id number] Patient Name: OLAF BRIONES MRN: [id number] date: 1945 Sex: M Assigned Patient Location: RAD Current Patient Location: Accession/Order Number: [id number] Exam Date: 11/28/2023 08:32 Report Date: 11/29/2023 [...] M.D. Signed By: 11/29/23458 DD/ 5 TD/TT: Nursery Hand: Procedure Note Radiology, Radiologist, MD - 11/29/2023 [place] [address] XRay Report Signed Patient: OLAF BRIONES WMR#: [id number] : 1945cct:[id number] Age/Sex: 78 / MADM Date: 11/28/23 Loc: RAD Attending Dr: Shanna Ivory M.D. Ordering Physician: Shanna Ivory M.D. Date of Service: 11/28/23 Procedure(s): XR abdomen 1V Accession Number(s): [id number] cc: CHRISTIANO PEGUERO ; Shanna Ivory M.D. [address] [id number] Patient Name: OLAF BRIONES MRN: [id number] date: 1945 Sex: M Assigned Patient Location: [facility] Current Patient Location: Accession/Order Number: [id number] Exam Date: 11/28/2023 08:32 Report Date: 11/29/2023 [...] M.D. Signed By:11/29/23 0459 DD/ 0456 TD/TT: Nursery Hand: Generic External Data Provider [facility] Final Result documented in this encounter Visit Diagnoses Not on filedocumented in this encounter Additional Health Concerns Assessment Noted Time PHQ-9 Depression Total Score: 9 06/18/19 24 11:06 AM EDT documented as of this encounter Care Teams Wooden Barrel Mechanic Relationship Specialty Start Date End Date Christiano Peguero MD [address] [facility] 110 [place] [address] PCP - General Family Medicine 10/09/22 Christiano Peguero MD [address] [facility] 110 [place] [address] PCP - [facility] 05/20/23 06/17/65 documented as of this encounter
--- OUTSIDE RECORDS SUMMARY | 2024-08-06 14:10 | XMS_ITS | Encounter Summary ---
Author Organization [facility] Address [address] [place] [address] Care Team Providers Care Delivery Professional Name Role Phone Christiano Coppola MD Primary Care Provider [phone] Christiano Coppola MD Unavailable Encounter Details Date Type Department Care Team (Late st Contact Info) Description 03/13/2023 Abstract [facility] [address] [facility] 110 [place] [phone] Christiano Coppola MD [address] [facility] 110 [place] [address] Social History Tobacco Use Types Packs/Day Years [...] on filedocumented in this encounter Care Teams Delivery Professional Relationship Specialty Start Date End Date Christiano Coppola MD [address] [facility] 110 [place] [address] PCP - General Family Medicine 10/09/22 Christiano Coppola MD [address] [facility] 110 [place] [address] PCP - [facility] 05/20/23 06/17/65 documented as of this encounter
--- OUTSIDE RECORDS SUMMARY | 2024-08-06 14:10 | XMS_ITS | Encounter Summary ---
Author Organization [facility] Address [address] [place] [address] Phone Care Team Providers Care Senior Coldfusion Developer Name Role Phone Christiano Coppola MD Primary Care Provider [phone] Encounter Details Date Type Department Care Team (Late st Contact Info) Description 01/20/2023 Patient Risk Score ACO Care Management [address] [facility] [address] [place] [address] Social History Tobacco Use Types [...] documented as of this encounter Care Teams Senior Coldfusion Developer Relationship Specialty Start Date End Date Christiano Coppola MD PCP - General Family Medicine 01/09/23 documented as of this encounter
--- OUTSIDE RECORDS SUMMARY | 2024-08-06 14:10 | XMS_ITS | Encounter Summary ---
Author Organization [facility] Address [address] [place] [address] Phone Care Team Providers Care Tunnel Mucker Name Role Phone Daniel Hernandez MD Primary Care Provider [phone] Christiano Coppola MD Primary Care Provider [phone] Encounter Details Date Type Department Care Team (Late st Contact Info) Description 12/21/2022 Patient Risk Score AC Care Management [address] [place] [address] [place] [address] Social History Tobacco Use Types Packs/Day Years [...] on filedocumented in this encounter Care Teams Tunnel Mucker Relationship Specialty Start Date End Date Daniel Hernandez MD [address] [place] [address] [place] [address] PCP - General 09/05/22 01/08/23 Christiano Coppola MD [address] [place] [address] [place] [address] PCP - General Family Medicine 01/09/23 documented as of this encounter
--- OUTSIDE RECORDS SUMMARY | 2024-08-06 14:10 | XMS_ITS | Encounter Summary ---
Author Organization [facility] Address [address] [facility] [place] [address] Care Team Providers Care Ground Wood Supervisor Name Role Phone Christiano Coppola MD Primary Care Provider [phone] Christiano Coppola MD Unavailable Encounter Details Date Type Department Care Team (Late st Contact Info) Description 03/06/2023 Abstract [facility] FM [address] [facility] 110 [place] [phone] Christiano Coppola MD [address] [facility] 110 [place] [address] Social History Tobacco Use Types Packs/Day Years [...] on filedocumented in this encounter Care Teams Ground Wood Supervisor Relationship Specialty Start Date End Date Christiano Coppola MD [address] [facility] 110 [place] [address] PCP - General Family Medicine 10/09/22 Christiano Coppola MD [address] [facility] 110 [place] [address] PCP - [facility] 05/20/23 06/17/65 documented as of this encounter
--- OUTSIDE RECORDS SUMMARY | 2024-08-06 14:10 | XMS_ITS | Encounter Summary ---
Author Organization [facility] Address [address] [place] [address] Care Team Providers Care Pastry Mixer Name Role Phone Christiano Peguero MD Primary Care Provider [phone] Christiano Peguero MD Unavailable Encounter Details Date [...] EDT Narrative 09/13/2023 3:05 PM EDT The [address] [address] Cardiology Report Signed Patient: OLAF BRIONES MR#: [id number] : 1945 Acct:[id number] Age/Sex: 78 / M ADM Date: 09/13/23 Loc: CARD Attending Dr: Non-Staff Physician Villatoro Ordering Physician: Sisi Martinez M.D. Date of Service: 09/13/23 Procedure(s): CA echo doppler complete Accession Number(s): [id number] cc: CHRISTIANO PEGUERO ; Physician,Non-Staff Irving Patient Name: OLAF BRIONES MR#: [id number] : 1945 Exam Date: 09/13/2023 Ordering Doctor: [...] Signed By: 09/13/23 1505 DD/ 1504 TD/TT: Shift Commander: Procedure Note Radiology, Radiologist, - 09/13/2023 [place] [address] Cardiology Report Signed Patient: OLAF BRIONES WMR#: [id number] : 1945cct:[id number] Age/Sex: 78 / MADM Date: 09/13/23 Loc: CARD Attending Dr: Non-Staff Physician Irving Ordering Physician: Sisi Martinez M.D. Date of Service: 09/13/23 Procedure(s): CA echo doppler complete Accession Number(s): [id number] cc: CHRISTIANO PEGUERO ; Sisi Martinez M.D. Patient Name: OLAF BRIONES MR#: [id number] : 1945 Exam Date: 09/13/2023 Ordering Doctor: [...] M.D. Signed By:09/13/23 1505 DD/ 1504 TD/TT: Shift Commander: us Generic External Data Provider [facility] Final Result documented in this encounter Visit Diagnoses Not on filedocumented in this encounter Additional Health Concerns Assessment Noted Time PHQ-9 Depression Total Score: 9 06/18/19 24 11:06 AM EDT documented as of this encounter Care Teams Pastry Mixer Relationship Specialty Start Date End Date Christiano Peguero MD 112 [facility] 110 [place] [address] PCP - General Family Medicine 10/09/22 Christiano Peguero MD 112 [facility] 110 [place] [address] PCP - [facility] 05/20/23 06/17/65 documented as of this encounter
--- OUTSIDE RECORDS SUMMARY | 2024-08-06 14:10 | XMS_ITS | Encounter Summary ---
Author Organization [facility] Address [address] [place] [address] Care Team Providers Care Production Support Manager Name Role Phone Christiano Peguero MD Primary Care Provider [phone] Christiano Peguero MD Unavailable Encounter Details Date Type Department Care Team (Late st Contact Info) Description 07/31/2024 Clinisync Result Encounter [facility] External Department Unsolicited [...] Diagnosis Comments MR LUMBAR SPINE WO CON 07/31/2024 12:07 PM EDT documented in this encounter Results * MR LUMBAR SPINE WO CON (07/31/2024 12:07 PM EDT) Anatomical Region Laterality Modality Other 07/31/2024 12:0 7 PM EDT Narrative 07/31/2024 12:10 PM EDT The [address] [address] Magnetic Resonance Report Signed Patient: OLAF BRIONES MR#: [id number] : 1945 Acct:[id number] Age/Sex: 79 / M ADM Date: 07/31/24 Loc: MRI Attending Dr: David Scruggs NP Ordering Physician: David Scruggs NP Date of Service: 07/31/24 Procedure(s): MR lumbar spine wo con Accession Number(s): [id number] cc: CHRISTIANO PEGUERO Anna NP The [address] [address] Patient Name: OLAF BRIONES MRN: [id number] date: 1945 Sex: M Assigned Patient Location: MRI Current Patient Location: MRI Accession/Order Number: [id number] Exam Date: 07/31/2024 11:52 Report Date: 07/31/2024 12:07 At the request of: DAVID SCRUGGS NP Procedure: MR lumbar spine wo con MRI LUMBAR SPINE WITHOUT CONTRAST COMPARISON: 01/17/2023 CLINICAL DATA: Chronic back pain with radiculopathy bilaterally and weakness. Multiecho imaging in the axial and sagittal plane was performed without contrast. There is continued slight anterolisthesis of L4 and L5. Heterogeneous bone marrow is again noted. There are no acute compression fractures or marrow edema. The conus medullaris is within normal limits for caliber, position and signal intensity. Bilateral renal cysts are seen. There are no other paraspinal soft tissue abnormalities. At T12-L1, there is no disc disease or stenosis. At L1-2, there is slight loss of disc height. Mild annular disc bulging is again visualized greater extending laterally. Mild thecal sac effacement is present. Moderate bilateral foraminal encroachment is noted. At L2-3, the disc is within normal limits for height. Annular disc bulging is again visualized. There is minor facet and ligamentous hypertrophy. There is mild to moderate thecal sac effacement and bilateral foraminal encroachment. At L3-4, the disc is within normal limits for height. There is annular disc bulging with extension laterally on both sides. There is facet and ligamentous hypertrophy with severe central stenosis similar to the prior. There is moderate foraminal encroachment on the right and mild to moderate on the left. At L4-5, there is annular disc bulging. There is facet and ligamentous hypertrophy with severe central stenosis and near complete effacement of the thecal sac. There is at least moderate narrowing of the neural foramen on both sides, greater on the left. At the lumbosacral junction no significant disc bulge or herniation is present. There is mild facet disease. No stenosis is identified. MR/MR lumbar spine wo con IMPRESSION: CONTINUED HETEROGENEOUS BONE MARROW. 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 Impression dictated by: Lucinda Monreal M.D. 07/31/2024 12:07 PM Dictation Location: [place] [address] Electronically authenticated by: [id number] Y Date: 07/31/2024 12:07 Dictated By: Lucinda Monreal M.D. Signed By: 07/31/24 1210 DD/ 1207 TD/TT: Industrial Methods Consultant: Procedure Note Radiology, Radiologist, MD - 07/31/2024 [place] [address] Magnetic Resonance Report Signed Patient: OLAF BRIONES WMR#: [id number] : 1945cct:[id number] Age/Sex: 79 / MADM Date: 07/31/24 Loc: MRI Attending Dr: David Scruggs NP Ordering Physician: David Scruggs NP Date of Service: 07/31/24 Procedure(s): MR lumbar spine wo con Accession Number(s): [id number] cc: CHRISTIANO PEGUERO ; David Scruggs NP The [place] [address] Patient Name: OLAF BRIONES MRN: [facility]:[id number] date: 1945 Sex: M Assigned Patient Location: MRI Current Patient Location: MRI Accession/Order Number: [id number] Exam Date: 07/31/2024 11:52 Report Date: 07/31/2024 12:07 At the request of: DAVID SCRUGGS NP Procedure: MR lumbar spine wo con MRI LUMBAR SPINE WITHOUT CONTRAST COMPARISON: 01/17/2023 CLINICAL DATA: Chronic back pain with radiculopathy bilaterally andweakness. Multiecho imaging in the axial and sagittal plane was performed without contrast. There is continued slight anterolisthesis of L4 and L5. Heterogeneousbone marrow is again noted. There are no acute compression fractures or marrow edema. The conus medullaris is within normal limits for caliber, positionand signal intensity. Bilateral renal cysts are seen. There are no other paraspinal soft tissue abnormalities. At T12-L1, there is no disc disease or stenosis. At L1-2, there is slight loss of disc height. Mild annular disc bulgingis again visualized greater extending laterally. Mild thecal sac effacementis present. Moderate bilateral foraminal encroachment is noted. At L2-3, the disc is within normal limits for height. Annular discbulging is again visualized. There is minor facet and ligamentous hypertrophy.There is mild to moderate thecal sac effacement and bilateral foraminalencroachment. At L3-4, the disc is within normal limits for height. There is annulardisc bulging with extension laterally on both sides. There is facet and ligamentous hypertrophy with severe central stenosis similar to the prior. There is moderate foraminal encroachment on the right and mild to moderateon the left. At L4-5, there is annular disc bulging. There is facet and ligamentous hypertrophy with severe central stenosis and near complete effacement ofthe thecal sac. There is at least moderate narrowing of the neural foramen on both sides, greater on the left. At the lumbosacral junction no significant disc bulge or herniation is present. There is mild facet disease. No stenosis is identified. MR/MR lumbar spine wo con IMPRESSION: CONTINUED HETEROGENEOUS BONE MARROW. 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 Impression dictated by: Lucinda Monreal M.D. 07/31/2024 12:07 PM Dictation Location: [place] [address] Electronically authenticated by: [id number] Y Date: 2:07 Dictated By: Lucinda Monreal M.D. Signed By:07/31/24 1210 DD/ 1207 TD/TT: Industrial Methods Consultant: us Generic External Data Provider [facility] Final Result documented in this encounter Visit Diagnoses Not on filedocumented in this encounter Additional Health Concerns Assessment Noted Time PHQ-9 Depression Total Score: 9 04/30/20 24 11:06 AM EDT documented as of this encounter Care Teams Production Support Manager Relationship Specialty Start Date End Date Christiano Peguero MD 112 [facility] 110 [place] [address] PCP - General Family Medicine 10/09/22 Christiano Peguero MD 112 [facility] 110 [place] [address] PCP - [facility] 05/20/23 06/17/65 documented as of this encounter
--- OUTSIDE RECORDS SUMMARY | 2024-08-06 14:10 | XMS_ITS | Clinical Summary ---
Author Organization [facility] Address [address] [place] [address] Care Team Providers Care Signal Circuit Designer Name Role Phone Unavailable Primary Care Provider [...] patient's age to complete this topic Insurance [facility] UNITED [employer] MEDICARE
--- OUTSIDE RECORDS SUMMARY | 2024-08-06 14:10 | XMS_ITS | Patient Health Record ---
Author Organization [facility] Address [address] [place] [address] Care Team Providers Care Psychologist Experimental Name Role Phone Anat HAHN, Christiano Primary Care Provider Dom van Errol Pazmartir Unavailable [phone] Reason For Referral No Information Plan Of Treatment No Information Insurance Providers Payer Name Payer Address Payer Phone Subscriber Number Group Number Insured Name Patient Relationship to Insured Coverage Start Date Coverage End Date MEDICARE UNITED [employer] [address] [address] [place] [address] [id number] OLAF BRIONES Self - patient is the insured 5
--- OUTSIDE RECORDS SUMMARY | 2024-08-06 14:10 | XMS_ITS | Encounter Summary ---
Author Organization [facility] Address [address] [place] [address] Care Team Providers Care Antique Furniture Reproducer Name Role Phone Christiano Coppola MD Primary Care Provider [phone] Christiano Coppola MD Unavailable Encounter Details Date Type Department Care Team (Late st Contact Info) Description 05/06/2024 Abstract [facility] FM 112 [facility] 110 [place] [phone] Christiano Coppola MD [address] [facility] 110 [place] [address] Social History Tobacco Use Types Packs/Day Years [...] documented as of this encounter Care Teams Antique Furniture Reproducer Relationship Specialty Start Date End Date Christiano Coppola MD [address] [facility] 110 [place] [address] PCP - General Family Medicine 10/09/22 Christiano Coppola MD [address] [facility] 110 [place] [address] PCP - [facility] 05/20/23 06/17/65 documented as of this encounter
--- OUTSIDE RECORDS SUMMARY | 2024-08-06 14:10 | XMS_ITS | Referral Summary ---
Author Organization [facility] Address [address] [place] [address] Care Team Providers Care Wall Taper Name Role Phone Unavailable Primary Care Provider [...] Treatment Not on file Insurance [facility] UNITED HE[employer]CARE MEDICARE
--- OUTSIDE RECORDS SUMMARY | 2024-08-06 14:10 | XMS_ITS | Clinical Summary ---
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 11/05/2022 Assessment [...] Encounters Date Type Department Care Team Description 07/31/2024 Clinisync Result Encounter [facility] External Department Unsolicited Provider, Generic External Data 07/20/2024 Orders Only [facility] [address] [facility] [address] [place] [address] Christiano Peguero MD Arthritis of low back 07/20/2024 Refill [facility] [address] [facility] [address] [place] [address] Lucinda Demarco PA Current mild episode of major depressive disorder without prior episode 06/26/2024 Abstract [facility] [address] [facility] [address] [place] [address] Christiano Peguero MD 05/06/2024 Abstract [facility] [address] [facility] [address] [place] [address] Christiano Peguero MD from Last 3 Months Immunizations Immunization [...] 025, 03/15/2023 Pneumococcal Vaccine: 65+ Years Completed 7, 11/06/2014 Influenza Vaccine Completed 11/18/2023, , 02/18/2022, Additional history exists Procedures Procedure Name Priority Date/Time Associated Diagnosis Comments MR LUMBAR SPINE WO CON 07/31/2024 12:07 PM EDT MICROALBUMIN / CREATININE URINE RATIO Routine 04/03/2024 8:19 AM EST Medicare annual wellness visit, initial Type 2 diabetes mellitus without complication, without long-term current use of insulin (HCC) POCT GLYCATED HEMOGLOBIN, TOTAL Routine 04/02/2024 1:28 PM EST Type 2 diabetes mellitus without complication, without long-term current use of insulin (HCC) from Last 3 Months or Most Recently Relevant to Health Maintenance Results * MR LUMBAR SPINE WO CON (07/31/2024 12:07 PM EDT) Anatomical Region Laterality Modality Other 07/31/2024 12:0 7 PM EDT Narrative 07/31/2024 12:10 PM EDT [address] [address] Magnetic Resonance Report Signed Patient: OLAF BRIONES MR#: [id number] : 1945 Acct:[id number] Age/Sex: 79 / M ADM Date: 07/31/24 Loc: MRI Attending Dr: David Scruggs NP Ordering Physician: David Scruggs NP Date of Service: 07/31/24 Procedure(s): MR lumbar spine wo con Accession Number(s): [id number] cc: CHRISTIANO PEGUERO ; David Scruggs NP [place] [id number] Patient Name: OLAF BRIONES MRN: [id number] date: 1945 Sex: M Assigned Patient Location: MRI Current Patient Location: MRI Accession/Order Number: [id number] Exam Date: 07/31/2024 11:52 Report Date: 07/31/2024 [...] Monreal M.D. 07/31/2024 12:07 PM Dictation Location: [place] [address] Electronically authenticated by: [id number] Y Date: 07/31/2024 12:07 Dictated By: Lucinda Monreal M.D. Signed By: 07/31/24 1210 DD/ 1207 TD/TT: Telemetry Monitor: Procedure Note Radiology, Radiologist, MD - 07/31/[address] [address] Magnetic Resonance Report Signed Patient: OLAF BRIONES WMR#: [id number] : 6Acct:[id number] Age/Sex: 79 / MADM Date: 07/31/24 Loc: MRI Attending Dr: David Scruggs NP Ordering Physician: David Scruggs NP Date of Service: 07/31/24 Procedure(s): MR lumbar spine wo con Accession Number(s): [id number] cc: CHRISTIANO PEGUERO ; David Scruggs NP The [address] [address] Patient Name: OLAF BRIONES MRN: [id number] date: 1945 Sex: M Assigned Patient Location: MRI Current Patient Location: MRI Accession/Order Number: [id number] Exam Date: 07/31/2024 11:52 Report Date: 07/31/2024 [...] Monreal M.D. 07/31/2024 12:07 PM Dictation Location: [place] [address] Electronically authenticated by: [id number] Y Date: 2:07 Dictated By: Lucinda Monreal M.D. Signed By:07/31/24 1210 DD/ 1207 TD/TT: Telemetry Monitor: us Generic External Data Provider [facility] Final Result * Microalbumin / creatinine urine ratio (04/03/2024 [...] Performing Organization Information Site ID: QPT Name: [employer] [facility] Address: [address] [place] [address], [address] [place] [id number] Director: Brennon Zhong MD Christiano Peguero MD LAB URINE ORDERABLES Final Resul t [facility] * (ABNORMAL) POCT Glycated hemoglobin, total (04/02/2024 1:28 PM EST) Hemoglobin A1C 6.7 Blood 04/02/2024 1:28 PM EST us Christiano Peguero MD POINT OF CARE TEST ENTER/EDIT OR DERABLES Final Result from Last 3 Months or Most Recently Relevant to Health Maintenance Insurance [facility] MEDICARE COMPLETE Care Teams Logistics Tech Relationship Specialty Start Date End Date Christiano Peguero MD [address] [facility] [address] [place] [address] PCP - General Family Medicine 10/09/22 Christiano Peguero MD [address] [facility] 110 [place] [address] PCP - [facility] 05/20/23 06/17/65
--- OUTSIDE RECORDS SUMMARY | 2024-08-06 14:10 | XMS_ITS | Encounter Summary ---
Author Organization [facility] Address [address] [facility] [place] [address] Care Team Providers Care Reinforcing Rod Layer Name Role Phone Christiano Coppola MD Primary Care Provider [phone] Christiano Coppola MD Unavailable Encounter Details Date Type Department Care Team (Late st Contact Info) Description 01/17/2023 Abstract [facility] [address] [facility] 110 [place] [phone] Christiano Coppola MD [address] [facility] 110 [place] [address] Social History Tobacco Use Types Packs/Day Years [...] on filedocumented in this encounter Care Teams Reinforcing Rod Layer Relationship Specialty Start Date End Date Christiano Coppola MD [address] [facility] 110 [place] [address] PCP - General Family Medicine 10/09/22 Christiano Coppola MD [address] [facility] 110 [place] [address] PCP - [facility] 05/20/23 06/17/65 documented as of this encounter
--- OUTSIDE RECORDS SUMMARY | 2024-08-06 14:10 | XMS_ITS | Encounter Summary ---
Author Organization [facility] Address [address] [place] [address] Care Team Providers Care Tray Line Supervisor Name Role Phone Christiano Coppola MD Primary Care Provider [phone] Christiano Coppola MD Unavailable Encounter Details Date [...] AM EDT Narrative 09/23/2023 7:48 AM EDT [address] [address] Respiratory Report Signed Patient: OLAF BRIONES MR#: [id number] : 1945 Acct:[id number] Age/Sex: 78 / M ADM Date: 09/13/23 Loc: CARD Attending Dr: Non-Staff Physician Villatoro Ordering Physician: Sisi Martinez M.D. Date of Service: 09/13/23 Procedure(s): RT pulmonary function test Accession Number(s): [id number] cc: [facility] Test Date: 2023-09-13 Pat Name: OLAF BRIONES Department: Room: - Gender: Male Director Of Academic: Corrine Salinas,BUS MONITOR : 1945 Requested By: [id number] Order Number: [id number] Reading MD: Martin Tucker Interpretive Statements Spirometry [...] Signed By: 09/23/23 0748 DD/ 0744 TD/TT: Certified Professional Coder: Procedure Note Radiology, Radiologist, - 09/23/2023 [place] [address] Respiratory Report Signed Patient: OLAF BRIONES WMR#: [id number] : 1945cct:[id number] Age/Sex: 78 / MADM Date: 09/13/23 Loc: CARD Attending Dr: Non-Staff Physician Villatoro Ordering Physician: Sisi Martinez M.D. Date of Service: 09/13/23 Procedure(s): RT pulmonary function test Accession Number(s): [id number] cc: [facility] Test Date: 2023-09-13 Pat Name: OLAF BRIONES Department: Room: - Gender: Male Director Of Academic: Corrine SalinasTOYA : 1945 Requested By: [id number] Order Number: [id number] Reading MD: Martin Tucker Interpretive Statements Spirometry [...] Tucker D.O. Signed By:09/23/23 0748 DD/ TD/TT: Certified Professional Coder: us Generic External Data Provider [facility] Final Result documented in this encounter Visit Diagnoses Not on filedocumented in this encounter Additional Health Concerns Assessment Noted Time PHQ-9 Depression Total Score: 9 06/18/19 24 11:06 AM EDT documented as of this encounter Care Teams Tray Line Supervisor Relationship Specialty Start Date End Date Christiano Coppola MD 112 [facility] 110 [place] [address] PCP - General Family Medicine 10/09/22 Christiano Coppola MD [address] [facility] 110 [place] [address] PCP - [facility] 05/20/23 06/17/65 documented as of this encounter
--- OUTSIDE RECORDS SUMMARY | 2024-08-06 14:10 | XMS_ITS | Encounter Summary ---
Author Organization [facility] Address [address] [place] [address] Care Team Providers Care Portfolio Mgr Name Role Phone Christiano Peguero MD Primary Care Provider [phone] Christiano Peguero MD Unavailable Encounter Details Date [...] EST Narrative 12/27/2022 11:37 PM EST The [address] [address] XRay Report Signed Patient: OLAF BRIONES MR#: [id number] : 1945 Acct:[id number] Age/Sex: 77 / M ADM Date: 12/27/22 Loc: RAD Attending Dr: David Scruggs NP Ordering Physician: David Scruggs NP Date of Service: 12/27/22 Procedure(s): XR lumbar spine 6V w bending Accession Number(s): [id number] cc: CHRISTIANO PEGUERO Anna NP The [place] [id number] Patient Name: OLAF BRIONES MRN: [id number] date: 1945 Sex: M Assigned Patient Location: RAD Current Patient Location: [facility] Accession/Order Number: [id number] Exam Date: 12/27/2022 15:20 Report Date: 12/27/2022 [...] M.D. Signed By: 12/27/222338 DD/ 36 TD/TT: Fashion Styling Intern: Procedure Note Radiology, Radiologist, MD - 12/28/[address] [address] XRay Report Signed Patient: OLAF BRIONES WMR#: [id number] : 1945cct:[id number] Age/Sex: 77 / MADM Date: 12/27/22 Loc: [facility] Attending Dr: David Scruggs NP Ordering Physician: David Scruggs NP Date of Service: 12/27/22 Procedure(s): XR lumbar spine 6V w bending Accession Number(s): [id number] cc: CHRISTIANO PEGUERO ; David Scruggs CLINICAL RESEARCH SPECIALIST [place] [address] Patient Name: OLAF BRIONES MRN: [facility]:[id number] date: 1945 Sex: M Assigned Patient Location: [facility] Current Patient Location: [facility] Accession/Order Number: [id number] Exam Date: 12/27/2022 15:20 Report Date: 12/27/2022 [...] Scott M.D. Signed By:12/27/222338 DD/ 36 TD/TT: Fashion Styling Intern: Generic External Data Provider [facility] Final Result documented in this encounter Visit Diagnoses Not on filedocumented in this encounter Care Teams Portfolio Mgr Relationship Specialty Start Date End Date Christiano Peguero MD [address] [address] PCP - General Family Medicine 10/09/22 Christiano Peguero MD [address] [address] [facility] 05/20/23 06/17/65 documented as of this encounter
--- OUTSIDE RECORDS SUMMARY | 2024-08-06 14:10 | XMS_ITS | Encounter Summary ---
Author Organization [facility] Address [address] [place] [address] Care Team Providers Care Sawmilling Operator Name Role Phone Christiano Coppola MD Primary Care Provider [phone] Christiano Coppola MD Unavailable Encounter Details Date Type Department Care Team (Late st Contact Info) Description 06/27/2023 Abstract [facility] 112 [facility] 110 [place] [address] Christiano Coppola MD 112 [facility] 110 [place] [address] Social History Tobacco Use Types Packs/Day Years [...] documented as of this encounter Care Teams Sawmilling Operator Relationship Specialty Start Date End Date Christiano Coppola MD [address] [facility] 110 [place] [address] PCP - General Family Medicine 10/09/22 Christiano Coppola MD [address] [facility] 110 [place] [address] PCP - [facility] 05/20/23 06/17/65 documented as of this encounter
--- OUTSIDE RECORDS SUMMARY | 2024-08-06 14:10 | XMS_ITS | Encounter Summary ---
Author Organization [facility] Address [address] [place] [address] Phone Care Team Providers Care Regulatory Compliance Specialist Name Role Phone Daniel Hernandez MD Primary Care Provider [phone] Christiano Coppola MD Primary Care Provider [phone] Encounter Details Date Type Department Care Team (Late st Contact Info) Description 11/20/2022 Patient Risk Score [facility] Care Management [address] [place] [address] [place] [phone] Social History Tobacco Use Types Packs/Day Years [...] on filedocumented in this encounter Care Teams Regulatory Compliance Specialist Relationship Specialty Start Date End Date Daniel Hernandez MD [address] [place] [address] [place] [address] PCP - General 09/05/22 01/08/23 Christiano Coppola MD [address] [place] [address] [place] [address] PCP - General Family Medicine 01/09/23 documented as of this encounter
--- OUTSIDE RECORDS SUMMARY | 2024-08-06 14:10 | XMS_ITS | Encounter Summary ---
Author Organization [facility] Address [address] [place] [address] Care Team Providers Care Special Loan Officer Name Role Phone Christiano Peguero MD Primary Care Provider [phone] Christiano Peguero MD Unavailable Encounter Details Date [...] EST Narrative 01/17/2023 12:22 PM EST The [address] [address] Magnetic Resonance Report Signed Patient: OLAF BRIONES MR#: [id number] : 1945 Acct:[id number] Age/Sex: 77 / M ADM Date: 01/17/23 Loc: MRI Attending Dr: David Scruggs NP Ordering Physician: David Scruggs NP Date of Service: 01/17/23 Procedure(s): MR lumbar spine wo con Accession Number(s): [id number] cc: CHRISTIANO PEGUERO Anna NP [address] [place] [address], [place] [address] Patient Name: OLAF BRIONES MRN: [id number] date: 1945 Sex: M Assigned Patient Location: MRI Current Patient Location: MRI Accession/Order Number: [id number] Exam Date: 01/17/2023 11:00 Report Date: 01/17/2023 [...] Signed By: 01/17/23 1225 DD/ 1222 TD/TT: Microbiology Technician: Procedure Note Radiology, Radiologist, MD - 01/17/2023 [place] [address] Magnetic Resonance Report Signed Patient: OLAF BRIONES WMR#: [id number] : 1945cct:[id number] Age/Sex: 77 / MADM Date: 01/17/23 Loc: MRI Attending Dr: David Scruggs RACE AND SPORTS BOOK WRITER Ordering Physician: David Scruggs NP Date of Service: 01/17/23 Procedure(s): MR lumbar spine wo con Accession Number(s): [id number] cc: CHRISTIANO PEGUERO ; David Scruggs NP [place] [address] Patient Name: OLAF BRIONES MRN: [id number] date: 1945 Sex: M Assigned Patient Location: MRI Current Patient Location: MRI Accession/Order Number: [id number] Exam Date: 01/17/2023 11:00 Report Date: 01/17/2023 [...] M.D. Signed By:01/17/23 1225 DD/ 1222 TD/TT: Microbiology Technician: Generic External Data Provider [facility] Final Result documented in this encounter Visit Diagnoses Not on filedocumented in this encounter Care Teams Special Loan Officer Relationship Specialty Start Date End Date Christiano Peguero MD [address] [address] PCP - General Family Medicine 10/09/22 Christiano Peguero MD [address] [address] [facility] 05/20/23 06/17/65 documented as of this encounter
--- OUTSIDE RECORDS SUMMARY | 2024-08-06 14:10 | XMS_ITS | Encounter Summary ---
Author Organization [facility] Address [address] [place] [address] Care Team Providers Care Administrative Assistant Data Entry Name Role Phone Christiano Coppola MD Primary Care Provider [phone] Christiano Coppola MD Unavailable Encounter Details Date Type Department Care Team (Late st Contact Info) Description 04/09/2024 Abstract [facility] FM 112 [facility] 110 [place] [address] Christiano Coppola MD [address] [facility] 110 [place] [address] Social History Tobacco Use Types Packs/Day Years [...] documented as of this encounter Care Teams Administrative Assistant Data Entry Relationship Specialty Start Date End Date Christiano Coppola MD [address] [facility] 110 [place] [address] PCP - General Family Medicine 10/09/22 Christiano Coppola MD [address] [facility] 110 [place] [address] PCP - [facility] 05/20/23 06/17/65 documented as of this encounter
--- OUTSIDE RECORDS SUMMARY | 2024-08-06 14:10 | XMS_ITS | Encounter Summary ---
Author Organization [facility] Address [address] [place] [address] Care Team Providers Care Mold Carrier Name Role Phone Christiano Coppola MD Primary Care Provider [phone] Christiano Coppola MD Unavailable Encounter Details Date Type Department Care Team (Late st Contact Info) Description 06/19/2023 Orders Only [facility] [address] [place] [address] [place] [phone] Unallocated, Noms Provider, [address] [place] [address] Social History Tobacco Use Types Packs/Day Years [...] documented as of this encounter Care Teams Mold Carrier Relationship Specialty Start Date End Date Christiano Coppola MD [address] [place] [address] [place] [address] PCP - General Family Medicine 10/09/22 Christiano Coppola MD [address] [facility] [address] [place] [address] PCP - [facility] 05/20/23 06/17/65 documented as of this encounter
--- OUTSIDE RECORDS SUMMARY | 2024-08-06 14:10 | XMS_ITS | Encounter Summary ---
Author Organization [facility] Address [address] [facility] [place] [address] Care Team Providers Care Avionics Manager Name Role Phone Christiano Coppola MD Primary Care Provider [phone] Christiano Coppola MD Unavailable Encounter Details Date Type Department Care Team (Late st Contact Info) Description 12/27/2022 Abstract [facility] [address] [facility] 110 [place] [address] Christiano Coppola MD [address] [facility] 110 [place] [address] Social History Tobacco Use Types Packs/Day Years [...] on filedocumented in this encounter Care Teams Avionics Manager Relationship Specialty Start Date End Date Christiano Coppoal MD [address] [facility] 110 [place] [address] PCP - General Family Medicine 10/09/22 Christiano Coppola MD [address] [facility] 110 [place] [address] PCP - [facility] 05/20/23 06/17/65 documented as of this encounter
--- OUTSIDE RECORDS SUMMARY | 2024-08-06 14:10 | XMS_ITS | Encounter Summary ---
Author Organization [facility] Address [address] [place] [address] Care Team Providers Care Veneer Splicer Name Role Phone Christiano Coppola MD Primary Care Provider [phone] Christiano Coppola MD Unavailable Encounter Details Date Type Department Care Team (Late st Contact Info) Description 04/02/2024 Abstract [facility] [address] [place] [address] [place] [address] Christiano Coppola MD [address] [place] [address] [place] [address] Social History Tobacco Use Types Packs/Day Years [...] documented as of this encounter Care Teams Veneer Splicer Relationship Specialty Start Date End Date Christiano Coppola MD [address] [facility] 110 [place] [address] PCP - General Family Medicine 10/09/22 Christiano Coppola MD [address] [facility] 110 [place] [address] PCP - [facility] 05/20/23 06/17/65 documented as of this encounter
--- OUTSIDE RECORDS SUMMARY | 2024-08-06 14:10 | XMS_ITS | Encounter Summary ---
Author Organization [facility] Address [address] [facility] [place] [address] Care Team Providers Care Community Development Planner Name Role Phone Christiano Coppola MD Primary Care Provider [phone] Christiano Coppola MD Unavailable Encounter Details Date Type Department Care Team (Late st Contact Info) Description 02/13/2023 Abstract [facility] [address] [email or web address] 110 [place] [phone] Christiano Coppola MD [address] [facility] 110 [place] [address] Social History Tobacco Use Types Packs/Day Years [...] on filedocumented in this encounter Care Teams Community Development Planner Relationship Specialty Start Date End Date Christiano Coppola MD [address] [facility] 110 [place] [address] PCP - General Family Medicine 10/09/22 Christiano Coppola MD [address] [facility] 110 [place] [address] PCP - [facility] 05/20/23 06/17/65 documented as of this encounter
--- OUTSIDE RECORDS SUMMARY | 2024-08-06 14:10 | XMS_ITS | Encounter Summary ---
Author Organization [facility] Address [address] [place] [facility] [address] Care Team Providers Care Veterinary Parasitologist Name Role Phone Christiano Coppola MD Primary Care Provider [phone] Christiano Coppola MD Unavailable Encounter Details Date Type Department Care Team (Late st Contact Info) Description 02/13/2023 Abstract [facility] [address] [facility] 110 [place] [phone] Christiano Coppola MD [address] [facility] 110 [place] [address] Social History Tobacco Use Types Packs/Day Years [...] on filedocumented in this encounter Care Teams Veterinary Parasitologist Relationship Specialty Start Date End Date Christiano Coppola MD [address] [facility] 110 [place] [address] PCP - General Family Medicine 10/09/22 Christiano Coppola MD [address] [facility] 110 [place] [address] PCP - [facility] 05/20/23 06/17/65 documented as of this encounter
--- OUTSIDE RECORDS SUMMARY | 2024-08-06 14:10 | XMS_ITS | Clinical Summary ---
Author Organization [facility] Address [address] [place] [address] Phone Care Team Providers Care Project Finance Analyst Name Role Phone Christiano Coppola MD Primary Care Provider [phone] Allergies Active Allergy Reactions Criticality Noted Date [...] HEALTHCARE MEDICARE [employer] MEDICARE Care Teams Project Finance Analyst Relationship Specialty Start Date End Date Christiano Coppola MD PCP - General Family Medicine 01/09/23
--- OUTSIDE RECORDS SUMMARY | 2024-08-06 14:10 | XMS_ITS | Encounter Summary ---
Author Organization [facility] Address [address] [place] [address] Care Team Providers Care Bean Snapper Name Role Phone Christiano Peguero MD Primary Care Provider [phone] Christiano Peguero MD Unavailable Encounter Details Date Type Department Care Team (Late st Contact Info) Description 03/06/2023 Clinisync Result Encounter [facility] External Department Unsolicited Christiano Peguero MD [address] [facility] 110 [place] [address] Social History Tobacco Use Types [...] EST Narrative 03/07/2023 7:16 AM EST The [address] [address] Cardiac Rehab Report Signed Patient: OLAF BRIONES MR#: [id number] : 1945 Acct:[id number] Age/Sex: 77 / M ADM Date: 03/06/23 Loc: CR Attending Dr: NAHOMI BUENO Ordering Physician: CHRISTIANO PEGUERO Date of Service: 03/06/23 Procedure(s): ITP Accession Number(s): [id number] cc: The [facility] Test Date: 2023-03-06 Pat Name: OLAF BRIONES Department: Room: - Gender: Male Finisher Hot Strip: : 1945 Requested By: CHRISTIANO PEGUERO Order Number: [id number] Jorden MD: TAIWO LYNNE Interpretive Statements Session Date: Electronically Signed On 03-07-2023 7:16:02 EST by TAIWO LYNNE Dictated By: Taiwo Lynne D.O. Signed By: 03/07/23 0716 03/07/23 0716 DD/ 1325 TD/TT: Electro Mechanic: Procedure Note Radiology, Radiologist, MD - 03/07/2023 [place] [address] Cardiac Rehab Report Signed Patient: OLAF BRIONES WMR#: [id number] : 1945cct:[id number] Age/Sex: 77 / MADM Date: 03/06/23 Loc: CR Attending Dr: NAHOMI BUENO Ordering Physician: CHRISTIANO PEGUERO Date of Service: 03/06/23 Procedure(s): ITP Accession Number(s): [id number] cc: The [facility] Test Date: 2023-03-06 Pat Name: OLAF BRIONES Department: Room: - Gender: Male Finisher Hot Strip: : 1945 Requested By: CHRISTIANO PEGUERO Order Number: [id number] Jorden MD: TAIWO LYNNE Interpretive Statements Session Date: Electronically Signed On 03-07-2023 7:16:02 EST by TAIWO LYNNE Dictated By: Taiwo Lynne D.O. Signed By:03/07/23 0716 03/07/23 0716 DD/ 1325 TD/TT: Electro Mechanic: Christiano Peguero MD [facility] Final Result documented in this encounter Visit Diagnoses Not on filedocumented in this encounter Care Teams Bean Snapper Relationship Specialty Start Date End Date Christiano Peguero MD [address] [place] [address] PCP - General Family Medicine 10/09/22 Christiano Peguero MD [address] [place] [address] PCP - [facility] 05/20/23 06/17/65 documented as of this encounter
--- OUTSIDE RECORDS SUMMARY | 2024-08-06 14:10 | XMS_ITS | Encounter Summary ---
Author Organization [facility] Address [address] [place] [address] Care Team Providers Care Yarn Dumper Name Role Phone Christiano Coppola MD Primary Care Provider [phone] Christiano Coppola MD Unavailable Encounter Details Date Type Department Care Team (Late st Contact Info) Description 03/18/2023 Abstract [facility] [address] [facility] 110 [place] [phone] Christiano Coppola MD [address] [facility] 110 [place] [address] Social History Tobacco Use Types Packs/Day Years [...] on filedocumented in this encounter Care Teams Yarn Dumper Relationship Specialty Start Date End Date Christiano Coppola MD [address] [facility] 110 [place] [address] PCP - General Family Medicine 10/09/22 Christiano Coppola MD [address] [facility] 110 [place] [address] PCP - [facility] 05/20/23 06/17/65 documented as of this encounter
--- OUTSIDE RECORDS SUMMARY | 2024-08-06 14:10 | XMS_ITS | Clinical Summary ---
Author Organization [facility] Address [address] [place] [address] Care Team Providers Care Vp Analysis Name Role Phone Mora Barraza MD Primary [...] per urology Coronary artery disease invo lving [place] coronary artery of [place] heart 08/27/2022 Assessment & Plan (08/31/2022 8:51 [...] original vaccine, a ge 12+ yr, monovalent ([employer] - PURPLE TOP) 02/06/2021,04/12/2020,03/28/2020 influenza (HD-IIV3) vaccine, [...] - 8.0 g/dL 08/31/2022 1:30 AM EDT [facility] Albumin 3.8(L) 3.9 - 4.9 g/dL 08/31/2022 1:30 AM EDT [facility] Calcium, Total 9.1 8.5 - 10.2 mg/dL 08/31/2022 1:30 AM EDT [facility] Bilirubin, Total 0.3 0.2 - 1.3 mg/dL 08/31/2022 1:30 AM [facility] Alkaline Phosphatase 116(H) 38 - 113 U/L 08/31/2022 1:30 AM [facility] AST 19 14 - 40 U/L 08/31/2022 1:30 AM [facility] ALT 23 10 - 54 U/L 08/31/2022 1:30 AM [facility] Glucose 114(H) 74 - 99 mg/dL 08/31/2022 1:30 AM [facility] Comment: The Citizen Of The [place] Diabetes Association (ADA) provides guidance for cutoff [...] Medical Care in Diabetes 2016, Citizen Of The [place] Diabetes Association. Diabetes Care. 2016.39(Suppl 1). BUN 21 9 - 24 mg/dL 08/31/2022 1:30 AM [facility] Creatinine 0.88 0.73 - 1.22 mg/dL 08/31/2022 1:30 AM [facility] Sodium 139 136 - 144 mmol/L 08/31/2022 1:30 AM [facility] Potassium 4.2 3.7 - 5.1 mmol/L 08/31/2022 1:30 AM [facility] Chloride 105 97 - 105 mmol/L 08/31/2022 1:30 AM [facility] CO2 25 22 - 30 mmol/L 08/31/2022 1:30 AM [facility] Anion Gap 9 9 - 18 mmol/L 08/31/2022 1:30 AM [facility] Estimated Glomerular Filtration Rate 89 >=60 mL/min/1.7 3m 08/31/2022 1:30 AM EDT [facility] Comment:Estimated Glomerular Filtration Rate (eGFR) [...] us Ria Herrera MD LABORATORY Final Result [facility] [address] [id number], from Last 3 Months or Most Recently Relevant [place] [address] Care Teams Vp Analysis Relationship Specialty Start Date End Date Mora Barraza MD PCP - General Family Medicine 08/31/22
--- OUTSIDE RECORDS SUMMARY | 2024-08-06 14:11 | XMS_ITS | Encounter Summary ---
Author Organization [facility] Address [address] [place] [address] Care Team Providers Care Clinical Physician Assistant Name Role Phone Christiano Peguero MD Primary Care Provider [phone] Christiano Peguero MD Unavailable Encounter Details Date Type Department Care Team (Late st Contact Info) Description 06/11/2023 Clinisync Result Encounter [facility] External Department Unsolicited Christiano Peguero MD [address] [facility] 110 [place] [address] Social History Tobacco Use Types [...] EDT Narrative 06/11/2023 1:28 PM EDT The [address] [address] Nuclear Medicine Report Signed Patient: OLAF BRIONES MR#: [id number] : 1945 Acct:[id number] Age/Sex: 77 / M ADM Date: 06/11/23 Loc: NM Attending Dr: CHRISTIANO PEGUERO Ordering Physician: CHRISTIANO PEGUERO Date of Service: 06/11/23 Procedure(s): NM tara perf SPECT rest str Accession Number(s): [id number] cc: CHRISTIANO PEGUERO Patient Name: OLAF BRIONES MR#: [id number] : 1945 Exam Date: 06/11/2023 Ordering Doctor: [...] Signed By: 06/11/23 1328 DD/ 1327 TD/TT: Kitchen Designer: Procedure Note Radiology, Radiologist, - 06/12/2023 [place] [address] Nuclear Medicine Report Signed Patient: OLAF BRIONES WMR#: [id number] : 1945cct:[id number] Age/Sex: 77 / MADM Date: 06/11/23 Loc: NM Attending Dr: CHRISTIANO PEGUERO Ordering Physician: CHRISTIANO PEGUERO Date of Service: 06/11/23 Procedure(s): NM tara perf SPECT rest str Accession Number(s): [id number] cc: RAMAN PEGUERODEV Patient Name: OLAF BRIONES MR#: [id number] : 1945 Exam Date: 06/11/2023 Ordering Doctor: [...] M.D. Signed By:06/11/23 1328 DD/ 1327 TD/TT: Kitchen Designer: us Christiano Peguero MD [facility] Final Result documented in this encounter Visit Diagnoses Not on filedocumented in this encounter Care Teams Clinical Physician Assistant Relationship Specialty Start Date End Date Christiano Peguero MD [address] [facility] 110 [place] [address] PCP - General Family Medicine 10/09/22 Christiano Peguero MD [address] [facility] 110 [place] [address] PCP - [facility] 05/20/23 06/17/65 documented as of this encounter
--- OUTSIDE RECORDS SUMMARY | 2024-08-06 14:11 | XMS_ITS | Encounter Summary ---
Author Organization [facility] Address [address] [place] [address] Care Team Providers Care Patternmaker Plaster And Plastic Name Role Phone Christiano Coppola MD Primary Care Provider [phone] Christiano Coppola MD Unavailable Encounter Details Date Type Department Care Team (Late st Contact Info) Description 11/21/2022 Orders Only [facility] [address] [facility] 110 [place] [address] A, Unknown Practice [address] [place], [place] [phone] Social History Tobacco Use Types Packs/Day Years [...] on filedocumented in this encounter Care Teams Patternmaker Plaster And Plastic Relationship Specialty Start Date End Date Christiano Coppola MD [address] [facility] [address] [place], [place] [phone] PCP - General Family Medicine 10/09/22 Christiano Coppola MD [address] [facility] [address] [place] [address] [facility] 05/20/23 06/17/65 documented as of this encounter
--- OUTSIDE RECORDS SUMMARY | 2024-08-06 14:11 | XMS_ITS | Encounter Summary ---
Author Organization [facility] Address [address] [facility] [place] [address] Care Team Providers Care Brewery Pumper Name Role Phone Christiano Coppola MD Primary Care Provider [phone] Christiano Coppola MD Unavailable Encounter Details Date Type Department Care Team (Late st Contact Info) Description 10/09/2022 Abstract [facility] [address] [facility] 110 [place] [phone] Christiano Coppola MD [address] [facility] 110 [place] [address] Social History Tobacco Use Types Packs/Day Years [...] on filedocumented in this encounter Care Teams Brewery Pumper Relationship Specialty Start Date End Date Christiano Coppola MD [address] [facility] 110 [place] [address] PCP - General Family Medicine 10/09/22 Christiano Coppola MD [address] [facility] 110 [place] [address] PCP - [facility] 05/20/23 06/17/65 documented as of this encounter
--- OUTSIDE RECORDS SUMMARY | 2024-08-06 14:11 | XMS_ITS | Encounter Summary ---
Author Organization [facility] Address [address] [place] [address] Care Team Providers Care Vision Teacher Name Role Phone Christiano Peguero MD Primary Care Provider [phone] Christiano Peguero MD Unavailable Encounter Details Date [...] EDT Narrative 11/20/2022 11:58 AM EDT The [address] [address] XRay Report Signed Patient: OLAF BRIONES MR#: [id number] : 1945 Acct:[id number] Age/Sex: 77 / M ADM Date: 11/20/22 Loc: RAD Attending Dr: Shanna Ivory M.D. Ordering Physician: Shanna Ivory M.D. Date of Service: 11/20/22 Procedure(s): XR abdomen 1V Accession Number(s): [id number] cc: CHRISTIANO PEGUERO ; Shanna Ivory M.D. The [address] [address] Patient Name: OLAF BRIONES MRN: [id number] date: 1945 Sex: M Assigned Patient Location: [facility] Current Patient Location: RAD Accession/Order Number: [id number] Exam Date: 11/20/2022 11:02 Report Date: 11/20/2022 [...] Signed By: 11/20/22 1201 DD/ 1158 TD/TT: Filenet Architect: Procedure Note Radiology, Radiologist, MD - 11/20/2022 [place] [address] XRay Report Signed Patient: OLAF BRIONES WMR#: [id number] : 1945cct:[id number] Age/Sex: 77 / MADM Date: 11/20/22 Loc: RAD Attending Dr: Shanna Ivory M.D. Ordering Physician: Shanna Ivory M.D. Date of Service: 11/20/22 Procedure(s): XR abdomen 1V Accession Number(s): [id number] cc: CHRISTIANO PEGUERO Patrick M.D. The [address] [id number] Patient Name: OLAF BRIONES MRN: [id number] date: 1945 Sex: M Assigned Patient Location: [facility] Current Patient Location: RAD Accession/Order Number: [id number] Exam Date: 11/20/2022 11:02 Report Date: 11/20/2022 [...] M.D. Signed By:11/20/22 1201 DD/ 1158 TD/TT: Filenet Architect: us Generic External Data Provider [facility] Final Result documented in this encounter Visit Diagnoses Not on filedocumented in this encounter Care Teams Vision Teacher Relationship Specialty Start Date End Date Christiano Peguero MD [address] [facility] 110 [place] [address] PCP - General Family Medicine 10/09/22 Christiano Peguero MD [address] [facility] 110 [place] [address] PCP - [facility] 05/20/23 06/17/65 documented as of this encounter
== END 2024-08-06 11:01 | disposition home or self-care (01) ==
LOC: PM 14:08
PROVIDERS: PCP Family Medicine; Visit Provider Nurse Practitioner
DX: M48.062 Spinal stenosis, lumbar region with neurogenic claudication (principal)
CPT/HCPCS: G0463

== ENCOUNTER 2024-08-17 09:23 | Day surgery (SDC) | payer MEDICARE, SELFPAY ==
--- OUTSIDE RECORDS SUMMARY | 2024-08-17 09:27 | XMS_ITS | Encounter Summary ---
Author Organization [facility] Address [address] [place] [address] Care Team Providers Care Street Commissioner Name Role Phone Christiano Coppola MD Primary Care Provider [phone] Christiano Coppola MD Unavailable Encounter Details Date Type Department Care Team (Late st Contact Info) Description 06/19/2023 Orders Only [facility] [address] [facility] [address] [place] [phone] Unallocated, Noms Provider, [address] [place] [address] Social History Tobacco Use Types Packs/Day Years [...] documented as of this encounter Care Teams Street Commissioner Relationship Specialty Start Date End Date Christiano Coppola MD [address] [facility] [address] [place] [address] PCP - General Family Medicine 10/09/22 Christiano Coppola MD [address] [facility] 110 [place] [address] PCP - [facility] 05/20/23 06/17/65 documented as of this encounter
--- OUTSIDE RECORDS SUMMARY | 2024-08-17 09:27 | XMS_ITS | Clinical Summary ---
Author Organization [facility] Address [address] [place] [address] Care Team Providers Care Provider Relations Manager Name Role Phone Mora Barraza MD Primary [...] per urology Coronary artery disease invo lving [place] coronary artery of [place] heart 08/27/2022 Assessment & Plan (08/31/2022 8:51 AM EDT): Assessment: STEMI on 08/19/2022 s/p JUHI Plan - Continue dual antiplatelet therapy with aspirin and ticagrelor Assessment & Plan (08/30/2022 3:24 PM EDT): Assessment: STEMI on 08/19/2022 s/p JUIH Plan [...] original vaccine, a ge 12+ yr, monovalent ([employer] - PURPLE TOP) 02/06/2021,04/12/2020,03/28/2020 influenza (HD-IIV3) vaccine, [...] - 8.0 g/dL 08/31/2022 1:30 AM EDT [facility] Albumin 3.8(L) 3.9 - 4.9 g/dL 08/31/2022 1:30 AM EDT [facility] Calcium, Total 9.1 8.5 - 10.2 mg/dL 08/31/2022 1:30 AM EDT [facility] Bilirubin, Total 0.3 0.2 - 1.3 mg/dL 08/31/2022 1:30 AM [facility] Alkaline Phosphatase 116(H) 38 - 113 U/L 08/31/2022 1:30 AM [facility] AST 19 14 - 40 U/L 08/31/2022 1:30 AM [facility] ALT 23 10 - 54 U/L 08/31/2022 1:30 AM [facility] Glucose 114(H) 74 - 99 mg/dL 08/31/2022 1:30 AM [facility] Comment: The [place] Diabetes Association (ADA) provides guidance for cutoff [...] Standards of Medical Care in Diabetes 2016, [place] Diabetes Association. Diabetes Care. 2016.39(Suppl 1). BUN 21 9 - 24 mg/dL 08/31/2022 1:30 AM [facility] Creatinine 0.88 0.73 - 1.22 mg/dL 08/31/2022 1:30 AM [facility] Sodium 139 136 - 144 mmol/L 08/31/2022 1:30 AM [facility] Potassium 4.2 3.7 - 5.1 mmol/L 08/31/2022 1:30 AM [facility] Chloride 105 97 - 105 mmol/L 08/31/2022 1:30 AM [facility] CO2 25 22 - 30 mmol/L 08/31/2022 1:30 AM [facility] Anion Gap 9 9 - 18 mmol/L 08/31/2022 1:30 AM [facility] Estimated Glomerular Filtration Rate 89 >=60 mL/min/1.7 3m 08/31/2022 1:30 AM EDT [facility] Comment:Estimated Glomerular Filtration Rate (eGFR) [...] us Ria Herrera MD LABORATORY Final Result [facility] [address] [id number], from Last 3 Months or Most Recently Relevant to Health Maintenance Insurance Care Teams Provider Relations Manager Relationship Specialty Start Date End Date Mora Barraza MD PCP - General Family Medicine 08/31/22
--- OUTSIDE RECORDS SUMMARY | 2024-08-17 09:27 | XMS_ITS | Clinical Summary ---
Author Organization [facility] Address [address] [place] [address] Care Team Providers Care Technical Project Coordinator Name Role Phone Christiano Peguero MD Primary Care Provider [phone] Christiano Peguero MD Unavailable Allergies Active Allergy [...] artery disease of n ative artery of [place] heart with stable angina pectoris 11/05/2022 Assessment [...] Only [facility] [address] [place] [address] [place] [address] Christiano Peguero MD Arthritis of low back 07/20/2024 Refill [facility] [address] [place] [address] [place] [address] Lucinda Demarco PA Current mild episode of major depressive disorder without prior episode 06/26/2024 Abstract [facility] [address] [facility] 110 [place] [address] Christiano Peguero MD from Last 3 Months [...] PM EDT Narrative 07/31/2024 12:10 PM EDT [address] [address] Magnetic Resonance Report Signed Patient: OLAF BRIONES MR#: [id number] : 1945 Acct:[id number] Age/Sex: 79 / M ADM Date: 07/31/24 Loc: MRI Attending Dr: David Scruggs NP Ordering Physician: David Scruggs NP Date of Service: 07/31/24 Procedure(s): MR lumbar spine wo con Accession Number(s): [id number] cc: CHRISTIANO PEGUERO ; David Scruggs NP [address] [address] Patient Name: OLAF BRIONES MRN: [id number] date: 1945 Sex: M Assigned Patient Location: MRI Current Patient Location: MRI Accession/Order Number: [id number] Exam Date: 07/31/2024 11:52 Report Date: 07/31/2024 [...] Monreal M.D. 07/31/2024 12:07 PM Dictation Location: [address] [address] Electronically authenticated by: [id number] Y Date: 07/31/2024 12:07 Dictated By: Lucinda Monreal M.D. Signed By: 07/31/24 1210 DD/ 1207 TD/TT: Call Manager: Procedure Note Radiology, Radiologist, MD - 07/31/2024 [place] [address] Magnetic Resonance Report Signed Patient: OLAF BRIONES WMR#: [id number] : 1945cct:[id number] Age/Sex: 79 / MADM Date: 07/31/24 Loc: MRI Attending Dr: David Scruggs NP Ordering Physician: David Scruggs NP Date of Service: 07/31/24 Procedure(s): MR lumbar spine wo con Accession Number(s): [id number] cc: CHRISTIANO PEGUERO ; David Scruggs NP The [address] [id number] Patient Name: OLAF BRIONES MRN: [id number] date: 1945 Sex: M Assigned Patient Location: MRI Current Patient Location: MRI Accession/Order Number: [id number] Exam Date: 07/31/2024 11:52 Report Date: 07/31/2024 [...] Monreal M.D. 07/31/2024 12:07 PM Dictation Location: [facility]-02 Electronically authenticated by: [id number] Y Date: 2:07 Dictated By: Lucinda Monreal M.D. Signed By:07/31/24 1210 DD/ 1207 TD/TT: Call Manager: us Generic External Data Provider [facility] [...] Performing Organization Information Site ID: QPT Name: [facility] Address: [address] [place] [phone] Director: Brennon Zhong MD Christiano Peguero MD LAB URINE ORDERABLES Final Resul t [facility] * (ABNORMAL) POCT Glycated hemoglobin, total (04/02/2024 1:28 PM EST) Hemoglobin A1C 6.7 Blood 04/02/2024 1:28 PM EST Christiano Peguero MD POINT OF CARE TEST ENTER/EDIT OR DERABLES Final Result from Last 3 Months or Most Recently Relevant to Health Maintenance Insurance [place] [address] Care Teams Technical Project Coordinator Relationship Specialty Start Date End Date Christiano Peguero MD [address] [facility] 110 [place] [address] PCP - General Family Medicine 10/09/22 Christiano Peguero MD [address] [facility] 110 [place] [address] PCP - [facility] 05/20/23 06/17/65
--- OUTSIDE RECORDS SUMMARY | 2024-08-17 09:27 | XMS_ITS | Encounter Summary ---
Author Organization [facility] Address [address] [place] [address] Care Team Providers Care Emergency Service Worker Name Role Phone Christiano Coppola MD Primary Care Provider [phone] Christiano Coppola MD Unavailable Encounter Details Date Type Department Care Team (Late st Contact Info) Description 04/02/2024 Abstract [facility] [address] [place] [address] [place] [phone] Christiano Coppola MD [address] [place] [address] [place] [address] Social History Tobacco Use Types Packs/Day Years [...] documented as of this encounter Care Teams Emergency Service Worker Relationship Specialty Start Date End Date Christiano Coppola MD [address] [facility] 110 [place] [address] PCP - General Family Medicine 10/09/22 Christiano Coppola MD [address] [facility] 110 [place] [address] PCP - [facility] 05/20/23 06/17/65 documented as of this encounter
--- OUTSIDE RECORDS SUMMARY | 2024-08-17 09:27 | XMS_ITS | Encounter Summary ---
Author Organization [facility] Address [address] [place] [address] Care Team Providers Care Car Mechanic Helper Name Role Phone Christiano Coppola MD Primary Care Provider [phone] Christiano Coppola MD Unavailable Encounter Details Date Type Department Care Team (Late st Contact Info) Description 04/09/2024 Abstract [facility] [address] [facility] 110 [place] [phone] Christiano Coppola MD [address] [facility] 110 [place] [address] Social History Tobacco Use Types Packs/Day Years [...] documented as of this encounter Care Teams Car Mechanic Helper Relationship Specialty Start Date End Date Christiano Coppola MD [address] [facility] 110 [place] [address] PCP - General Family Medicine 10/09/22 Christiano Coppola MD [address] [facility] 110 [place] [address] PCP - [facility] 05/20/23 06/17/65 documented as of this encounter
--- OUTSIDE RECORDS SUMMARY | 2024-08-17 09:27 | XMS_ITS | Encounter Summary ---
Author Organization [facility] Address [address] [place] [address] Phone Care Team Providers Care Geriatric Nurse Practitioner Name Role Phone Christiano Coppola MD Primary Care Provider [phone] Encounter Details Date Type Department Care Team (Late st Contact Info) Description 01/20/2023 Patient Risk Score ACO Care Management [address] [facility] [place] [address] [place] [address] Social History Tobacco Use Types [...] documented as of this encounter Care Teams Geriatric Nurse Practitioner Relationship Specialty Start Date End Date Christiano Coppola MD PCP - General Family Medicine 01/09/23 documented as of this encounter
--- OUTSIDE RECORDS SUMMARY | 2024-08-17 09:27 | XMS_ITS | Encounter Summary ---
Author Organization [facility] Address [address] [place] [address] Phone Care Team Providers Care Whipped Topping Mixer Name Role Phone Daniel Hernandez MD Primary Care Provider [phone] Christiano Coppola MD Primary Care Provider [phone] Encounter Details Date Type Department Care Team (Late st Contact Info) Description 11/20/2022 Patient Risk Score [facility] Care Management [address] [place] [phone] Social History Tobacco Use Types Packs/Day Years [...] on filedocumented in this encounter Care Teams Whipped Topping Mixer Relationship Specialty Start Date End Date Daniel Hernandez MD [address] [place] [address] [place] [address] PCP - General 09/05/22 01/08/23 Christiano Coppola MD [address] [place] [address] [place] [address] PCP - General Family Medicine 01/09/23 documented as of this encounter
--- OUTSIDE RECORDS SUMMARY | 2024-08-17 09:27 | XMS_ITS | Encounter Summary ---
Author Organization [facility] Address [address] [facility] [place] [address] Care Team Providers Care Automobile Service Station Manager Name Role Phone Christiano Coppola MD Primary Care Provider [phone] Christiano Coppola MD Unavailable Encounter Details Date Type Department Care Team (Late st Contact Info) Description 06/26/2024 Abstract [facility] 112 [facility] 110 [place] [phone] Christiano Coppola MD [address] [facility] 110 [place] [address] Social History Tobacco Use Types Packs/Day Years [...] documented as of this encounter Care Teams Automobile Service Station Manager Relationship Specialty Start Date End Date Christiano Coppola MD [address] [facility] 110 [place] [address] PCP - General Family Medicine 10/09/22 Christiano Coppola MD [address] [facility] 110 [place] [address] PCP - [facility] 05/20/23 06/17/65 documented as of this encounter
--- OUTSIDE RECORDS SUMMARY | 2024-08-17 09:27 | XMS_ITS | Clinical Summary ---
Author Organization [facility] Address [address] [place] [address] Care Team Providers Care Skin Installer Name Role Phone Unavailable Primary Care Provider [...] Annual Wellness (AWV) 1945 Depression Screening 1957 Adult Tetanus 06/18/1967 Pneumococcal Vaccine: 50+ Ye ars (1 of 1 - PCV) 06/18/1995 Zoster Vaccines (1 of 2) 06/18/1995 Fall Risk Screening 2010 COVID-19 Vaccine ( - 2023-2 5 season) 2023 Influenza Vaccine (Season Ended) [...] patient's age to complete this topic Insurance [facility] UNITED [employer]CARE MEDICARE
--- OUTSIDE RECORDS SUMMARY | 2024-08-17 09:27 | XMS_ITS | Clinical Summary ---
Author Organization [facility] Address [address] [address] Phone Care Team Providers Care Learning Disabilities Specialist Name Role Phone Christiano Coppola MD Primary Care Provider [phone] Allergies Active Allergy Reactions Criticality Noted Date [...] age to complete this topic HPV Vaccines (No Doses Required) Completed Hepatitis A Vaccines Aged Out No long [...] HEALTHCARE MEDICARE UNITED [employer] MEDICARE Care Teams Learning Disabilities Specialist Relationship Specialty Start Date End Date Christiano Coppola MD PCP - General Family Medicine 01/09/23
--- OUTSIDE RECORDS SUMMARY | 2024-08-17 09:27 | XMS_ITS | Encounter Summary ---
Author Organization [facility] Address [address] [place] [address] Phone Care Team Providers Care Seed And Fertilizer Specialist Name Role Phone Daniel Hernandez MD Primary Care Provider [phone] Christiano Coppola MD Primary Care Provider [phone] Encounter Details Date Type Department Care Team (Late st Contact Info) Description 12/21/2022 Patient Risk Score [facility] Care Management [address] [place] [phone] Social History Tobacco Use Types Packs/Day Years [...] on filedocumented in this encounter Care Teams Seed And Fertilizer Specialist Relationship Specialty Start Date End Date Daniel Hernandez MD [address] [place] [address] [place] [address] PCP - General 09/05/22 01/08/23 Christiano Coppola MD [address] [place] [address] [place] [address] PCP - General Family Medicine 01/09/23 documented as of this encounter
--- OUTSIDE RECORDS SUMMARY | 2024-08-17 09:27 | XMS_ITS | Encounter Summary ---
Author Organization [facility] Address [address] [place] [address] Care Team Providers Care Field Reimbursement Manager Name Role Phone Christiano Coppola MD Primary Care Provider [phone] Christiano Coppola MD Unavailable Encounter Details Date Type Department Care Team (Late st Contact Info) Description 05/06/2024 Abstract [facility] FM 112 [facility] 110 [place] [phone] Christiano Coppola MD [address] [facility] 110 [place] [address] Social History Tobacco Use Types Packs/Day Years [...] documented as of this encounter Care Teams Field Reimbursement Manager Relationship Specialty Start Date End Date Christiano Coppola MD [address] [facility] 110 [place] [address] PCP - General Family Medicine 10/09/22 Christiano Coppola MD [address] [facility] 110 [place] [address] PCP - [facility] 05/20/23 06/17/65 documented as of this encounter
--- OUTSIDE RECORDS SUMMARY | 2024-08-17 09:28 | XMS_ITS | Encounter Summary ---
Author Organization [facility] Address [address] [place] [address] Care Team Providers Care Panel Machine Setter Name Role Phone Christiano Coppola MD Primary Care Provider [phone] Christiano Cpopola MD Unavailable Encounter Details Date Type Department Care Team (Late st Contact Info) Description 10/09/2022 Abstract [facility] [address] [facility] 110 [place] [phone] Christiano Coppola MD [address] [facility] 110 [place] [address] Social History Tobacco Use Types Packs/Day Years [...] on filedocumented in this encounter Care Teams Panel Machine Setter Relationship Specialty Start Date End Date Christiano Coppola MD [address] [facility] 110 [place] [address] PCP - General Family Medicine 10/09/22 Christiano Coppola MD [address] [facility] 110 [place] [address] PCP - [facility] 05/20/23 06/17/65 documented as of this encounter
--- OUTSIDE RECORDS SUMMARY | 2024-08-17 09:28 | XMS_ITS | Encounter Summary ---
Author Organization [facility] Address [address] [place] [address] Care Team Providers Care Veneer Jointer Helper Name Role Phone Christiano Peguero MD Primary Care Provider [phone] Christiano Peguero MD Unavailable Encounter Details Date [...] EST Narrative 12/27/2022 11:37 PM EST The [address] [address] XRay Report Signed Patient: OLAF BRIONES MR#: [id number] : 1945 Acct:[id number] Age/Sex: 77 / M ADM Date: 12/27/22 Loc: RAD Attending Dr: David Scruggs NP Ordering Physician: David Scruggs NP Date of Service: 12/27/22 Procedure(s): XR lumbar spine 6V w bending Accession Number(s): [id number] cc: CHRISTIANO PEGUERO Anna NP The [place] [id number] Patient Name: OLAF BRIONES MRN: [id number] date: 1945 Sex: M Assigned Patient Location: RAD Current Patient Location: [facility] Accession/Order Number: [id number] Exam Date: 12/27/2022 15:20 Report Date: 12/27/2022 [...] M.D. Signed By: 12/27/222338 DD/ 36 TD/TT: Cnmt: Procedure Note Radiology, Radiologist, MD - 12/28/[address] [address] XRay Report Signed Patient: OLAF BRIONES WMR#: [id number] : 1945cct:[id number] Age/Sex: 77 / MADM Date: 12/27/22 Loc: [facility] Attending Dr: David Scruggs NP Ordering Physician: David Scruggs NP Date of Service: 12/27/22 Procedure(s): XR lumbar spine 6V w bending Accession Number(s): [id number] cc: CHRISTIANO PEGUERO ; David Scruggs DISPATCHER RADIOACTIVE WAST[employer] DISPOSAL [place] [address] Patient Name: OLAF BRIONES MRN: [facility]:[id number] date: 1945 Sex: M Assigned Patient Location: [facility] Current Patient Location: [facility] Accession/Order Number: [id number] Exam Date: 12/27/2022 15:20 Report Date: 12/27/2022 [...] Scott M.D. Signed By:12/27/222338 DD/ 36 TD/TT: Cnmt: Generic External Data Provider [facility] Final Result documented in this encounter Visit Diagnoses Not on filedocumented in this encounter Care Teams Veneer Jointer Helper Relationship Specialty Start Date End Date Christiano Peguero MD [address] [address] PCP - General Family Medicine 10/09/22 Christiano Peguero MD [address] [address] [facility] 05/20/23 06/17/65 documented as of this encounter
--- OUTSIDE RECORDS SUMMARY | 2024-08-17 09:28 | XMS_ITS | Encounter Summary ---
Author Organization [facility] Address [address] [facility] [place] [address] Care Team Providers Care Rv Body Mechanic Name Role Phone Christiano Coppola MD Primary Care Provider [phone] Christiano Coppola MD Unavailable Encounter Details Date Type Department Care Team (Late st Contact Info) Description 02/13/2023 Abstract [facility] FM [address] [facility] 110 [place] [phone] Christiano Coppola MD [address] [facility] 110 [place] [address] Social History Tobacco Use Types Packs/Day Years [...] on filedocumented in this encounter Care Teams Rv Body Mechanic Relationship Specialty Start Date End Date Christiano Coppola MD [address] [facility] 110 [place] [address] PCP - General Family Medicine 10/09/22 Christiano Coppola MD [address] [facility] 110 [place] [address] PCP - [facility] 05/20/23 06/17/65 documented as of this encounter
--- OUTSIDE RECORDS SUMMARY | 2024-08-17 09:28 | XMS_ITS | Encounter Summary ---
Author Organization [facility] Address [address] [place] [address] Care Team Providers Care Miniature Set Constructor Name Role Phone Christiano Peguero MD Primary Care Provider [phone] Christiano Peguero MD Unavailable Encounter Details Date [...] EDT Narrative 11/29/2023 4:59 AM EDT The [address] [address] XRay Report Signed Patient: OLFA BRIONES MR#: [id number] : 1945 Acct:[id number] Age/Sex: 78 / M ADM Date: 11/28/23 Loc: RAD Attending Dr: Shanna Ivory M.D. Ordering Physician: Shanna Ivory M.D. Date of Service: 11/28/23 Procedure(s): XR abdomen 1V Accession Number(s): [id number] cc: CHRISTIANO PEGUERO ; Shanna Ivory M.D. The [address] [id number] Patient Name: OLAF BRIONES MRN: [id number] date: 1945 Sex: M Assigned Patient Location: RAD Current Patient Location: Accession/Order Number: [id number] Exam Date: 11/28/2023 08:32 Report Date: 11/29/2023 [...] M.D. Signed By: 11/29/23458 DD/ 5 TD/TT: Entry Level Buyer: Procedure Note Radiology, Radiologist, MD - 11/29/2023 [place] [address] XRay Report Signed Patient: OLAF BRIONES WMR#: [id number] : 1945cct:[id number] Age/Sex: 78 / MADM Date: 11/28/23 Loc: RAD Attending Dr: Shanna Ivory M.D. Ordering Physician: Shanna Ivory M.D. Date of Service: 11/28/23 Procedure(s): XR abdomen 1V Accession Number(s): [id number] cc: CHRISTIANO PEGUERO ; Shanna Ivory M.D. [address] [id number] Patient Name: OLAF BRIONES MRN: [id number] date: 1945 Sex: M Assigned Patient Location: [facility] Current Patient Location: Accession/Order Number: [id number] Exam Date: 11/28/2023 08:32 Report Date: 11/29/2023 [...] M.D. Signed By:11/29/23 0459 DD/ 0456 TD/TT: Entry Level Buyer: Generic External Data Provider [facility] Final Result documented in this encounter Visit Diagnoses Not on filedocumented in this encounter Additional Health Concerns Assessment Noted Time PHQ-9 Depression Total Score: 9 06/18/19 24 11:06 AM EDT documented as of this encounter Care Teams Miniature Set Constructor Relationship Specialty Start Date End Date Christiano Peguero MD [address] [facility] 110 [place] [address] PCP - General Family Medicine 10/09/22 Christiano Peguero MD [address] [facility] 110 [place] [address] PCP - [facility] 05/20/23 06/17/65 documented as of this encounter
--- OUTSIDE RECORDS SUMMARY | 2024-08-17 09:28 | XMS_ITS | Encounter Summary ---
Author Organization [facility] Address [address] [facility] [place] [address] Care Team Providers Care Chauffeur Motorbus Name Role Phone Christiano Coppola MD Primary Care Provider [phone] Christiano Coppola MD Unavailable Encounter Details Date Type Department Care Team (Late st Contact Info) Description 03/06/2023 Abstract [facility] FM [address] [facility] 110 [place] [phone] Christiano Coppola MD [address] [facility] 110 [place] [address] Social History Tobacco Use Types Packs/Day Years [...] on filedocumented in this encounter Care Teams Chauffeur Motorbus Relationship Specialty Start Date End Date Christiano Coppola MD [address] [facility] 110 [place] [address] PCP - General Family Medicine 10/09/22 Christiano Coppola MD [address] [facility] 110 [place] [address] PCP - [facility] 05/20/23 06/17/65 documented as of this encounter
--- OUTSIDE RECORDS SUMMARY | 2024-08-17 09:28 | XMS_ITS | Encounter Summary ---
Author Organization [facility] Address [address] [place] [address] Care Team Providers Care Transverse Abdominal Muscle Surgeon Name Role Phone Christiano Peguero MD Primary Care Provider [phone] Christiano Peguero MD Unavailable Encounter Details Date [...] EDT Narrative 09/13/2023 6:21 PM EDT The [address] [address] XRay Report Signed Patient: OLAF BRIONES MR#: [id number] : 1945 Acct:[id number] Age/Sex: 78 / M ADM Date: 09/13/23 Loc: CARD Attending Dr: Non-Staff Physician Villatoro Ordering Physician: Sisi Martinez M.D. Date of Service: 09/13/23 Procedure(s): XR chest 2V Accession Number(s): [id number] cc: CHRISTIANO PEGUERO ; PhysicianSisi M.D. The [address] [address] Patient Name: OLAF BRIONES MRN: [id number] date: 1945 Sex: M Assigned Patient Location: CARD Current Patient Location: CARD Accession/Order Number: [id number] Exam Date: 09/13/2023 08:42 Report Date: 09/13/2023 [...] M.D. Signed By: 09/13/231820 DD/ 18 TD/TT: Embosser Operator: Procedure Note Radiology, Radiologist, MD - 09/16/2023 [place] [address] XRay Report Signed Patient: OLAF BRIONES WMR#: [id number] : 1945cct:[id number] Age/Sex: 78 / MADM Date: 09/13/23 Loc: CARD Attending Dr: Non-Staff Physician Villatoro Ordering Physician: Sisi Martinez M.D. Date of Service: 09/13/23 Procedure(s): XR chest 2V Accession Number(s): [id number] cc: CHRISTIANO PEGUERO ; PhysicianSisi M.D. The [address] [address] Patient Name: OLAF BRIONES MRN: [facility]:[id number] date: 1945 Sex: M Assigned Patient Location: CARD Current Patient Location: CARD Accession/Order Number: [id number] Exam Date: 09/13/2023 08:42 Report Date: 09/13/2023 [...] Weir M.D. Signed By:09/13/231820 DD/ 18 TD/TT: Embosser Operator: Generic External Data Provider [facility] Final Result documented in this encounter Visit Diagnoses Not on filedocumented in this encounter Additional Health Concerns Assessment Noted Time PHQ-9 Depression Total Score: 9 06/18/19 24 11:06 AM EDT documented as of this encounter Care Teams Transverse Abdominal Muscle Surgeon Relationship Specialty Start Date End Date Christiano Peguero MD [address] [facility] 110 [place] [address] PCP - General Family Medicine 10/09/22 Christiano Peguero MD [address] [facility] 110 [place] [address] PCP - [facility] 05/20/23 06/17/65 documented as of this encounter
--- OUTSIDE RECORDS SUMMARY | 2024-08-17 09:28 | XMS_ITS | Encounter Summary ---
Author Organization [facility] Address [address] [place] [address] Care Team Providers Care Announcer Name Role Phone Christiano Peguero MD Primary Care Provider [phone] Christiano Peguero MD Unavailable Encounter Details Date Type Department Care Team (Late st Contact Info) Description 06/11/2023 Clinisync Result Encounter NOMS External Department Unsolicited Christiano Peguero MD [address] [facility] [address] [place] [address] Social History Tobacco Use Types [...] EDT Narrative 06/11/2023 1:28 PM EDT The [address] [address] Nuclear Medicine Report Signed Patient: OLAF BRIONES MR#: [id number] : 1945 Acct:[id number] Age/Sex: 77 / M ADM Date: 06/11/23 Loc: NM Attending Dr: CHRISTIANO PEGUERO Ordering Physician: CHRISTIANO PEGUERO Date of Service: 06/11/23 Procedure(s): NM tara perf SPECT rest str Accession Number(s): [id number] cc: CHRISTIANO PEGUERO Patient Name: OLAF BRIONES MR#: [id number] : 1945 Exam Date: 06/11/2023 Ordering Doctor: [...] Signed By: 06/11/23 1328 DD/ 1327 TD/TT: Treatment Coordinator: Procedure Note Radiology, Radiologist, - 06/12/2023 [place] [address] Nuclear Medicine Report Signed Patient: OLAF BRIONES WMR#: [id number] : 1945cct:[id number] Age/Sex: 77 / MADM Date: 06/11/23 Loc: [place] Attending Dr: CHRISTIANO PEGUERO Ordering Physician: CHRISTIANO PEGUERO Date of Service: 06/11/23 Procedure(s): NM tara perf SPECT rest str Accession Number(s): [id number] cc: RAMAN PEGUERODEV Patient Name: OLAF BRIONES MR#: [id number] : 1945 Exam Date: 06/11/2023 Ordering Doctor: [...] M.D. Signed By:06/11/23 1328 DD/ 1327 TD/TT: Treatment Coordinator: us Christiano Peguero MD [facility] Final Result documented in this encounter Visit Diagnoses Not on filedocumented in this encounter Care Teams Announcer Relationship Specialty Start Date End Date Christiano Peguero MD [address] [facility] [address] [place] [address] PCP - General Family Medicine 10/09/22 Christiano Peguero MD [address] [facility] [address] [place] [address] PCP - [facility] 05/20/23 06/17/65 documented as of this encounter
--- OUTSIDE RECORDS SUMMARY | 2024-08-17 09:28 | XMS_ITS | Encounter Summary ---
Author Organization [facility] Address [address] [place] [address] Care Team Providers Care Nursing Home Manager Name Role Phone Christiano Peguero MD Primary Care Provider [phone] Christiano Peguero MD Unavailable Encounter Details Date [...] EST Narrative 01/17/2023 12:22 PM EST The [address] [address] Magnetic Resonance Report Signed Patient: OLAF BRIONES MR#: [id number] : 1945 Acct:[id number] Age/Sex: 77 / M ADM Date: 01/17/23 Loc: MRI Attending Dr: David Scruggs NP Ordering Physician: David Scruggs NP Date of Service: 01/17/23 Procedure(s): MR lumbar spine wo con Accession Number(s): [id number] cc: CHRISTIANO PEGUERO Anna NP [address], [place] [address] Patient Name: OLAF BRIONES MRN: [id number] date: 1945 Sex: M Assigned Patient Location: MRI Current Patient Location: MRI Accession/Order Number: [id number] Exam Date: 01/17/2023 11:00 Report Date: 01/17/2023 [...] Signed By: 01/17/23 1225 DD/ 1222 TD/TT: Irrigation Manager: Procedure Note Radiology, Radiologist, MD - 01/17/2023 [place] [address] Magnetic Resonance Report Signed Patient: OLAF BRIONES WMR#: [id number] : 1945cct:[id number] Age/Sex: 77 / MADM Date: 01/17/23 Loc: MRI Attending Dr: David Scruggs ORIENTAL RUG STRETCHER Ordering Physician: David Scruggs NP Date of Service: 01/17/23 Procedure(s): MR lumbar spine wo con Accession Number(s): [id number] cc: CHRISTIANO PEGUERO ; David Scruggs NP [place] [address] Patient Name: OLAF BRIONES MRN: [id number] date: 1945 Sex: M Assigned Patient Location: MRI Current Patient Location: MRI Accession/Order Number: [id number] Exam Date: 01/17/2023 11:00 Report Date: 01/17/2023 [...] M.D. Signed By:01/17/23 1225 DD/ 1222 TD/TT: Irrigation Manager: Generic External Data Provider [facility] Final Result documented in this encounter Visit Diagnoses Not on filedocumented in this encounter Care Teams Nursing Home Manager Relationship Specialty Start Date End Date Christiano Peguero MD [address] [address] PCP - General Family Medicine 10/09/22 Christiano Peguero MD [address] [address] [facility] 05/20/23 06/17/65 documented as of this encounter
--- OUTSIDE RECORDS SUMMARY | 2024-08-17 09:28 | XMS_ITS | Encounter Summary ---
Author Organization [facility] Address [address] [place] [address] Care Team Providers Care Web Press Roll Tender Name Role Phone Christiano Coppola MD Primary Care Provider [phone] Christiano Coppola MD Unavailable Encounter Details Date Type Department Care Team (Late st Contact Info) Description 03/13/2024 Abstract [facility] CI FM 112 [facility] 110 [place] [phone] Christiano Coppola MD [address] [facility] 110 [place] [address] Social History Tobacco Use Types Packs/Day Years [...] documented as of this encounter Care Teams Web Press Roll Tender Relationship Specialty Start Date End Date Christiano Coppola MD [address] [facility] 110 [place] [address] PCP - General Family Medicine 10/09/22 Christiano Coppola MD [address] [facility] 110 [place] [address] PCP - [facility] 05/20/23 06/17/65 documented as of this encounter
--- OUTSIDE RECORDS SUMMARY | 2024-08-17 09:28 | XMS_ITS | Encounter Summary ---
Author Organization [facility] Address [address] [facility] [place] [address] Care Team Providers Care Rice Cleaning Machine Tender Name Role Phone Christiano Coppola MD Primary Care Provider [phone] Christiano Coppola MD Unavailable Encounter Details Date Type Department Care Team (Late st Contact Info) Description 02/04/2023 Abstract [facility] CI FM [address] [place] [address] [place] [phone] Christiano Coppola MD [address] [facility] 110 [place] [address] Social History Tobacco Use Types Packs/Day Years [...] on filedocumented in this encounter Care Teams Rice Cleaning Machine Tender Relationship Specialty Start Date End Date Christiano Coppola MD [address] [facility] 110 [place] [address] PCP - General Family Medicine 10/09/22 Christiano Coppola MD [address] [facility] 110 [place] [address] PCP - [facility] 05/20/23 06/17/65 documented as of this encounter
--- OUTSIDE RECORDS SUMMARY | 2024-08-17 09:28 | XMS_ITS | Referral Summary ---
Author Organization [facility] Address [address] [place] [address] Care Team Providers Care Sales Agent Insurance Name Role Phone Unavailable Primary Care Provider [...] Plan of Treatment Not on file Insurance [employer] [employer] MEDICARE
--- OUTSIDE RECORDS SUMMARY | 2024-08-17 09:28 | XMS_ITS | Encounter Summary ---
Author Organization [facility] Address [address] [place] [address] Care Team Providers Care Keyboard Teacher Name Role Phone Christiano Peguero MD Primary Care Provider [phone] Christiano Peguero MD Unavailable Encounter Details Date [...] EDT Narrative 09/13/2023 3:05 PM EDT The [address] [address] Cardiology Report Signed Patient: OLAF BRIONES MR#: [id number] : 1945 Acct:[id number] Age/Sex: 78 / M ADM Date: 09/13/23 Loc: CARD Attending Dr: Non-Staff Physician Villatoro Ordering Physician: Sisi Martinez M.D. Date of Service: 09/13/23 Procedure(s): CA echo doppler complete Accession Number(s): [id number] cc: CHRISTIANO PEGUERO ; Physician,Non-Staff Irving Patient Name: OLAF BRIONES MR#: [id number] : 1945 Exam Date: 09/13/2023 Ordering Doctor: [...] Signed By: 09/13/23 1505 DD/ 1504 TD/TT: Community Services Manager: Procedure Note Radiology, Radiologist, - 09/13/2023 [place] [address] Cardiology Report Signed Patient: OLAF BRIONES WMR#: [id number] : 1945cct:[id number] Age/Sex: 78 / MADM Date: 09/13/23 Loc: CARD Attending Dr: Non-Staff Physician Irving Ordering Physician: Sisi Martinez M.D. Date of Service: 09/13/23 Procedure(s): CA echo doppler complete Accession Number(s): [id number] cc: CHRISTIANO PEGUERO ; Sisi Martinez M.D. Patient Name: OLAF BRIONES MR#: [id number] : 1945 Exam Date: 09/13/2023 Ordering Doctor: [...] M.D. Signed By:09/13/23 1505 DD/ 1504 TD/TT: Community Services Manager: us Generic External Data Provider [facility] Final Result documented in this encounter Visit Diagnoses Not on filedocumented in this encounter Additional Health Concerns Assessment Noted Time PHQ-9 Depression Total Score: 9 06/18/19 24 11:06 AM EDT documented as of this encounter Care Teams Keyboard Teacher Relationship Specialty Start Date End Date Christiano Peguero MD [address] [facility] 110 [place] [address] PCP - General Family Medicine 10/09/22 Christiano Peguero MD 112 [facility] 110 [place] [address] PCP - [facility] 05/20/23 06/17/65 documented as of this encounter
--- OUTSIDE RECORDS SUMMARY | 2024-08-17 09:28 | XMS_ITS | Encounter Summary ---
Author Organization [facility] Address [address] [facility] [place] [address] Care Team Providers Care City Planning Engineer Name Role Phone Christiano Coppola MD Primary Care Provider [phone] Christiano Coppola MD Unavailable Encounter Details Date Type Department Care Team (Late st Contact Info) Description 12/27/2022 Abstract [facility] [address] [facility] 110 [place] [phone] Christiano Coppola MD [address] [facility] 110 [place] [address] Social History Tobacco Use Types Packs/Day Years [...] on filedocumented in this encounter Care Teams City Planning Engineer Relationship Specialty Start Date End Date Chirstiano Coppola MD [address] [facility] 110 [place] [address] PCP - General Family Medicine 10/09/22 Christiano Coppola MD [address] [facility] 110 [place] [address] PCP - [facility] 05/20/23 06/17/65 documented as of this encounter
--- OUTSIDE RECORDS SUMMARY | 2024-08-17 09:28 | XMS_ITS | Encounter Summary ---
Author Organization [facility] Address [address] [facility] [place] [address] Care Team Providers Care Family Counselor Name Role Phone Christiano Coppola MD Primary Care Provider [phone] Christiano Coppola MD Unavailable Encounter Details Date Type Department Care Team (Late st Contact Info) Description 02/13/2023 Abstract [facility] [address] [facility] 110 [place] [phone] Christiano Coppola MD [address] [facility] 110 [place] [address] Social History Tobacco Use Types Packs/Day Years [...] on filedocumented in this encounter Care Teams Family Counselor Relationship Specialty Start Date End Date Christiano Coppola MD [address] [facility] 110 [place] [address] PCP - General Family Medicine 10/09/22 Christiano Coppola MD [address] [facility] 110 [place] [address] PCP - [facility] 05/20/23 06/17/65 documented as of this encounter
--- OUTSIDE RECORDS SUMMARY | 2024-08-17 09:28 | XMS_ITS | Encounter Summary ---
Author Organization [facility] Address [address] [place] [address] Care Team Providers Care Etymology Teacher Name Role Phone Christiano Coppola MD Primary Care Provider [phone] Christiano Coppola MD Unavailable Encounter Details Date Type Department Care Team (Late st Contact Info) Description 03/18/2023 Abstract [facility] [address] [facility] 110 [place] [phone] Christiano Coppola MD [address] [facility] 110 [place] [address] Social History Tobacco Use Types Packs/Day Years [...] on filedocumented in this encounter Care Teams Etymology Teacher Relationship Specialty Start Date End Date Christiano Coppola MD [address] [facility] 110 [place] [address] PCP - General Family Medicine 10/09/22 Christiano Coppola MD [address] [facility] 110 [place] [address] PCP - [facility] 05/20/23 06/17/65 documented as of this encounter
--- OUTSIDE RECORDS SUMMARY | 2024-08-17 09:28 | XMS_ITS | Encounter Summary ---
Author Organization [facility] Address [address] [place] [address] Care Team Providers Care Steam Room Attendant Name Role Phone Christiano Peguero MD Primary Care Provider [phone] Christiano Peguero MD Unavailable Encounter Details Date Type Department Care Team (Late st Contact Info) Description 03/06/2023 Clinisync Result Encounter [facility] External Department Unsolicited Christiano Peguero MD [address] [facility] 110 [place] [address] Social History Tobacco Use Types [...] EST Narrative 03/07/2023 7:16 AM EST The [address] [address] Cardiac Rehab Report Signed Patient: OLAF BRIONES MR#: [id number] : 1945 Acct:[id number] Age/Sex: 77 / M ADM Date: 03/06/23 Loc: CR Attending Dr: NAHOMI BUENO Ordering Physician: CHRISTIANO PEGUERO Date of Service: 03/06/23 Procedure(s): ITP Accession Number(s): [id number] cc: [facility] Test Date: 2023-03-06 Pat Name: OLAF BRIONES Department: Room: - Gender: Male Hash Slinger: : 1945 Requested By: CHRISTIANO PEGUERO Order Number: [id number] Jorden MD: TAIWO LYNNE Interpretive Statements Session Date: Electronically Signed On 03-07-2023 7:16:02 EST by TAIWO LYNNE Dictated By: Taiwo Lynne D.O. Signed By: 03/07/23 0716 03/07/23 0716 DD/ 1325 TD/TT: Clean Rice Grader And Reel Tender: Procedure Note Radiology, Radiologist, MD - 03/07/2023 [place] [address] Cardiac Rehab Report Signed Patient: OLAF BRIONES WMR#: [id number] : 1945cct:[id number] Age/Sex: 77 / MADM Date: 03/06/23 Loc: CR Attending Dr: NAHOMI BUENO Ordering Physician: CHRISTIANO PEGUERO Date of Service: 03/06/23 Procedure(s): ITP Accession Number(s): [id number] cc: [facility] Test Date: 2023-03-06 Pat Name: OLAF BRIONES Department: Room: - Gender: Male Hash Slinger: : 1945 Requested By: CHRISTIANO PEGUERO Order Number: [id number] Jorden MD: TAIWO LYNNE Interpretive Statements Session Date: Electronically Signed On 03-07-2023 7:16:02 EST by TAIWO LYNNE Dictated By: Taiwo Lynne D.O. Signed By:03/07/23 0716 03/07/23 0716 DD/ 1325 TD/TT: Clean Rice Grader And Reel Tender: Christiano Peguero MD [facility] Final Result documented in this encounter Visit Diagnoses Not on filedocumented in this encounter Care Teams Steam Room Attendant Relationship Specialty Start Date End Date Christiano Peguero MD [address] [place] [address] PCP - General Family Medicine 10/09/22 Christiano Peguero MD [address] [place] [address] PCP - [facility] 05/20/23 06/17/65 documented as of this encounter
--- OUTSIDE RECORDS SUMMARY | 2024-08-17 09:28 | XMS_ITS | Encounter Summary ---
Author Organization [facility] Address [address] [place] [address] Care Team Providers Care Oil Pump Station Operator Chief Name Role Phone Christiano Coppola MD Primary Care Provider [phone] Christiano Coppola MD Unavailable Encounter Details Date Type Department Care Team (Late st Contact Info) Description 01/17/2023 Abstract [facility] [address] [facility] 110 [place] [phone] Christiano Coppola MD [address] [facility] 110 [place] [address] Social History Tobacco Use Types Packs/Day Years [...] on filedocumented in this encounter Care Teams Oil Pump Station Operator Chief Relationship Specialty Start Date End Date Christiano Coppola MD [address] [facility] 110 [place] [address] PCP - General Family Medicine 10/09/22 Christiano Coppola MD [address] [facility] 110 [place] [address] PCP - [facility] 05/20/23 06/17/65 documented as of this encounter
--- OUTSIDE RECORDS SUMMARY | 2024-08-17 09:28 | XMS_ITS | Encounter Summary ---
Author Organization [facility] Address [address] [place] [address] Care Team Providers Care Real Estate Administrative Assistant Name Role Phone Christiano Coppola MD Primary Care Provider [phone] Christiano Coppola MD Unavailable Encounter Details Date Type Department Care Team (Late st Contact Info) Description 11/21/2022 Orders Only [facility] [address] [facility] 110 [place] [address] A, Unknown Practice [address] [place], [place] [address] Social History Tobacco Use Types Packs/Day Years [...] on filedocumented in this encounter Care Teams Real Estate Administrative Assistant Relationship Specialty Start Date End Date Christiano Coppola MD [address] [facility] [address] [place], [place] [address] PCP - General Family Medicine 10/09/22 Christiano Coppola MD [address] [facility] [address] [place] [address] [facility] 05/20/23 06/17/65 documented as of this encounter
--- OUTSIDE RECORDS SUMMARY | 2024-08-17 09:28 | XMS_ITS | Encounter Summary ---
Author Organization [facility] Address [address] [place] [address] Care Team Providers Care Doweling Machine Operator Name Role Phone Christiano Coppola MD Primary Care Provider [phone] Christiano Coppola MD Unavailable Encounter Details Date Type Department Care Team (Late st Contact Info) Description 12/28/2022 Orders Only [facility] [address] [facility] 110 [place] [phone] A, Unknown Practice [address] [place], [place] [address] Social History Tobacco Use Types Packs/Day Years [...] on filedocumented in this encounter Care Teams Doweling Machine Operator Relationship Specialty Start Date End Date Christiano Coppola MD [address] [facility] 110 [place] [address] PCP - General Family Medicine 10/09/22 Christiano Coppola MD [address] [facility] 110 [place], [place] [id number] [facility] 05/20/23 06/17/65 documented as of this encounter
--- OUTSIDE RECORDS SUMMARY | 2024-08-17 09:28 | XMS_ITS | Encounter Summary ---
Author Organization [facility] Address [address] [place] [address] Care Team Providers Care Provider Relations Rep Name Role Phone Christiano Coppola MD Primary Care Provider [phone] Christiano Coppola MD Unavailable Encounter Details Date [...] AM EDT Narrative 09/23/2023 7:48 AM EDT [address] [address] Respiratory Report Signed Patient: OLAF BRIONES MR#: [id number] : 1945 Acct:[id number] Age/Sex: 78 / M ADM Date: 09/13/23 Loc: CARD Attending Dr: Non-Staff Physician Villatoro Ordering Physician: Sisi Martinez M.D. Date of Service: 09/13/23 Procedure(s): RT pulmonary function test Accession Number(s): [id number] cc: [facility] Test Date: 2023-09-13 Pat Name: OLAF BRIONES Department: Room: - Gender: Male Cardroom Worker: Corrine Salinas,MEMBERSHIP SECRETARY : 1945 Requested By: [id number] Order Number: [id number] Reading MD: Martin Tucker Interpretive Statements Spirometry [...] Signed By: 09/23/23 0748 DD/ 0744 TD/TT: Elementary Math Tutor: Procedure Note Radiology, Radiologist, - 09/23/2023 [place] [address] Respiratory Report Signed Patient: OLAF BRIONES WMR#: [id number] : 1945cct:[id number] Age/Sex: 78 / MADM Date: 09/13/23 Loc: CARD Attending Dr: Non-Staff Physician Villatoro Ordering Physician: Sisi Martinez M.D. Date of Service: 09/13/23 Procedure(s): RT pulmonary function test Accession Number(s): [id number] cc: [facility] Test Date: 2023-09-13 Pat Name: OLAF BRIONES Department: Room: - Gender: Male Cardroom Worker: Corrine SalinasTOYA : 1945 Requested By: [id number] Order Number: [id number] Reading MD: Martin Tucker Interpretive Statements Spirometry [...] Tucker D.O. Signed By:09/23/23 0748 DD/ TD/TT: Elementary Math Tutor: us Generic External Data Provider [facility] Final Result documented in this encounter Visit Diagnoses Not on filedocumented in this encounter Additional Health Concerns Assessment Noted Time PHQ-9 Depression Total Score: 9 06/18/19 24 11:06 AM EDT documented as of this encounter Care Teams Provider Relations Rep Relationship Specialty Start Date End Date Christiano Coppola MD 112 [facility] 110 [place] [address] PCP - General Family Medicine 10/09/22 Christiano Coppola MD [address] [facility] 110 [place] [address] PCP - [facility] 05/20/23 06/17/65 documented as of this encounter
--- OUTSIDE RECORDS SUMMARY | 2024-08-17 09:28 | XMS_ITS | Encounter Summary ---
Author Organization [facility] Address [address] [place] [address] Care Team Providers Care Incinerator Plant General Supervisor Name Role Phone Christiano Coppola MD Primary Care Provider [phone] Christiano Coppola MD Unavailable Encounter Details Date Type Department Care Team (Late st Contact Info) Description 03/13/2023 Abstract [facility] [address] [facility] 110 [place] [phone] Christiano Coppola MD [address] [facility] 110 [place] [address] Social History Tobacco Use Types Packs/Day Years [...] on filedocumented in this encounter Care Teams Incinerator Plant General Supervisor Relationship Specialty Start Date End Date Christiano Coppola MD [address] [facility] 110 [place] [address] PCP - General Family Medicine 10/09/22 Christiano Coppola MD [address] [facility] 110 [place] [address] [facility] - [facility] 05/20/23 06/17/65 documented as of this encounter
--- OUTSIDE RECORDS SUMMARY | 2024-08-17 09:28 | XMS_ITS | Encounter Summary ---
Author Organization [facility] Address [address] [facility] [address] Care Team Providers Care It Program Manager Name Role Phone Christiano Coppola MD Primary Care Provider [phone] Christiano Coppola MD Unavailable Encounter Details Date Type Department Care Team (Late st Contact Info) Description 06/27/2023 Abstract [facility] 112 [facility] 110 [place] [address] Christiano Coppola MD 112 [facility] 110 [place] [address] Social History Tobacco Use Types Packs/Day Years [...] documented as of this encounter Care Teams It Program Manager Relationship Specialty Start Date End Date Christiano Coppola MD 112 [facility] 110 [place] [address] PCP - General Family Medicine 10/09/22 Christiano Coppola MD [address] [facility] 110 [place] [address] PCP - [facility] 05/20/23 06/17/65 documented as of this encounter
--- OUTSIDE RECORDS SUMMARY | 2024-08-17 09:28 | XMS_ITS | Encounter Summary ---
Author Organization [facility] Address [address] [place] [address] Care Team Providers Care Grinder Lap Name Role Phone Christiano Peguero MD Primary Care Provider [phone] Christiano Peguero MD Unavailable Encounter Details Date [...] EDT Narrative 11/20/2022 11:58 AM EDT The [address] [address] XRay Report Signed Patient: OLAF BRIONES MR#: [id number] : 1945 Acct:[id number] Age/Sex: 77 / M ADM Date: 11/20/22 Loc: RAD Attending Dr: Shanna Ivory M.D. Ordering Physician: Shanna Ivory M.D. Date of Service: 11/20/22 Procedure(s): XR abdomen 1V Accession Number(s): [id number] cc: CHRISTIANO PEGUERO ; Shanna Ivory M.D. The [address] [address] Patient Name: OLAF BRIONES MRN: [id number] date: 1945 Sex: M Assigned Patient Location: [facility] Current Patient Location: RAD Accession/Order Number: [id number] Exam Date: 11/20/2022 11:02 Report Date: 11/20/2022 [...] Signed By: 11/20/22 1201 DD/ 1158 TD/TT: Application Development Director: Procedure Note Radiology, Radiologist, MD - 11/20/2022 [place] [address] XRay Report Signed Patient: OLAF BRIONES WMR#: [id number] : 1945cct:[id number] Age/Sex: 77 / MADM Date: 11/20/22 Loc: RAD Attending Dr: Shanna Ivory M.D. Ordering Physician: Shanna Ivory M.D. Date of Service: 11/20/22 Procedure(s): XR abdomen 1V Accession Number(s): [id number] cc: CHRISTIANO PEGUERO Patrick M.D. The [address] [id number] Patient Name: OLAF BRIONES MRN: [id number] date: 1945 Sex: M Assigned Patient Location: [facility] Current Patient Location: RAD Accession/Order Number: [id number] Exam Date: 11/20/2022 11:02 Report Date: 11/20/2022 [...] M.D. Signed By:11/20/22 1201 DD/ 1158 TD/TT: Application Development Director: us Generic External Data Provider [facility] Final Result documented in this encounter Visit Diagnoses Not on filedocumented in this encounter Care Teams Grinder Lap Relationship Specialty Start Date End Date Christiano Peguero MD [address] [facility] 110 [place] [address] PCP - General Family Medicine 10/09/22 Christiano Peguero MD [address] [facility] 110 [place] [address] PCP - [facility] 05/20/23 06/17/65 documented as of this encounter
[2024-08-17 09:53] VITALS: BP 168/78; PULSE 72; TEMP 36.6; O2SAT 99
[2024-08-17 10:32] VITALS: BP 147/55; PULSE 60; O2SAT 96
[2024-08-17 10:33] VITALS: BP 148/72; PULSE 60; O2SAT 96
[2024-08-17] MEDS: BUPIVACAINE HCL 0.25% PF 25 MG/10 ML VIAL INJ (10:34)
[2024-08-17] MEDS: IOHEXOL 240 MG/ML - 10 ML VIAL INJ (10:34)
[2024-08-17] MEDS: 0.9 % SODIUM CHLORIDE 10 ML SYRINGE - SALINE FLUSH INJ (10:34)
[2024-08-17] MEDS: LIDOCAINE HCL 2% 400 MG/20 ML MDV 3 ML INJ (10:35)
[2024-08-17] MEDS: METHYLPREDNISOLONE ACETATE 80 MG/ML VIAL INJ (10:35)
--- NOTE | 2024-08-17 10:38 | W.PM.PROCNOT ---
Date of procedure: 08/17/24 Pre-op diagnosis: Pain due to lumbar stenosis with neurogenic claudication Post-op diagnosis: same as pre-op Procedure: Procedure: Bilateral L4-5 transforaminal epidural steroid injection Medications: Bupivacaine 0.25% 2cc, lidocaine 2% 1cc, depomedrol 80mg The patient was seen and examined in the preoperative holding area.? Informed consent was obtained and placed on the chart.? Patient was brought to the medical procedure unit and placed in the prone position where a timeout was completed verifying the correct patient, procedure site, position, and planned special equipment using sterile aseptic technique.? Under direct fluoroscopic visualization a 25-gauge Quincke tipped spinal needle was advanced at level left L4-5 to the designated neural foramen where contrast dye was injected to show adequate spread.? There was no evidence of vascular or adverse uptake.? Epidural spread was appreciated.? The above-mentioned injectate was then placed in a 1.5 mL aliquot preceded by negative aspiration.? The needle was removed. The same procedure, at the same level, was completed on the opposite side. ? Patient was taken to the postprocedural recovery area and monitored for an appropriate length of time before found suitable for discharge in the accompaniment of a responsible adult. Anesthesia: Local Surgeon: Alonzo Briscoe Pathology: none sent Condition: stable Disposition: no change
== END 2024-08-17 10:41 | disposition home or self-care (01) ==
LOC: SURGOUT 09:25
PROVIDERS: PCP Family Medicine; Visit Provider Anesthesiology
DX: M48.062 Spinal stenosis, lumbar region with neurogenic claudication (principal); M54.50 Low back pain, unspecified
CPT/HCPCS: 64483; J0665; J1010; Q9966

== ENCOUNTER 2024-08-27 10:10 | Outpatient (OUT) | payer MEDICARE, SELFPAY ==
--- OUTSIDE RECORDS SUMMARY | 2024-08-27 10:13 | XMS_ITS | Encounter Summary ---
Author Organization [facility] Address [address] [place] [address] Care Team Providers Care Hand Cigar Maker Name Role Phone Christiano Coppola MD Primary Care Provider [phone] Christiano Coppola MD Unavailable Encounter Details Date Type Department Care Team (Late st Contact Info) Description 06/26/2024 Abstract [facility] 112 [facility] 110 [place] [phone] Christiano Coppola MD [address] [facility] 110 [place] [address] Social History Tobacco Use Types Packs/Day Years [...] as of this encounter Care Teams Hand Cigar Maker Relationship Specialty Start Date End Date Christiano Coppola MD [address] [facility] 110 [place] [address] PCP - General Family Medicine 10/09/22 Christiano Coppola MD [address] [facility] 110 [place] [address] PCP - [facility] 05/20/23 06/17/65 documented as of this encounter
--- OUTSIDE RECORDS SUMMARY | 2024-08-27 10:13 | XMS_ITS | Encounter Summary ---
Author Organization [facility] Address [address] [place] [address] Phone Care Team Providers Care It Architecture Analyst Name Role Phone Daniel Hernandez MD Primary Care Provider [phone] Christiano Coppola MD Primary Care Provider [phone] Encounter Details Date Type Department Care Team (Late st Contact Info) Description 11/20/2022 Patient Risk Score [facility] Care Management [address] [place] [phone] Social History Tobacco Use Types Packs/Day Years [...] on filedocumented in this encounter Care Teams It Architecture Analyst Relationship Specialty Start Date End Date Daniel Hernandez MD [address] [place] [address] [place] [address] PCP - General 09/05/22 01/08/23 Christiano Coppola MD [address] [place] [address] [place] [address] PCP - General Family Medicine 01/09/23 documented as of this encounter
--- OUTSIDE RECORDS SUMMARY | 2024-08-27 10:13 | XMS_ITS | Clinical Summary ---
Author Organization [facility] Healthcare Address [address] [place] [address] Care Team Providers Care Early Childhood Education Specialist Name Role Phone Christiano Peguero MD Primary Care Provider [phone] Christiano Peguero MD Unavailable Allergies Active Allergy Reactions Criticality Noted Date Comments Albuterol Low 10/31/2022 Hydrochlorothiazide Medium 10/31/2022 Medications amLODIPine (Norvasc) 5 MG tablet Take by mouth Daily. Active allopurinol (Zyloprim) 300 MG tablet Take by mouth. Active [facility] Aspirin Low Dose 81 MG EC tablet TAKE 1 TABLET BY MOUTH EVERY DAY FOR 14 DAYS 08/22/2022 Active atorvastatin (Lipitor) 80 MG tablet Take 80 mg by mouth in the morning. 09/08/2022 Active carvedilol (Coreg) 6.25 MG tablet TAKE 1 TABLET BY MOUTH TWICE A DAY WITH A MEAL/FOOD Active lisinopril 2.5 MG tablet Take 2.5 mg by mouth in the morning. Active nitroglycerin (Nitrostat) 0.[address] 0.4 mg under the tongue. 08/22/2022 Active ticagrelor (Brilinta) 90 MG tablet Take 90 mg by mouth in the morning and 90 mg in the evening. 08/22/2022 Active citalopram (CeleXA) 10 MG tabletIndicatio ns:Current mild episode of major depressive disorder without prior episode TAKE 1 TABLET (10 MG) BY MOUTH DAILY. 90 tablet 3 07/20/2024 Active Active Problems Problem Noted Date Diagnosed Date Sciatica 04/02/2024 Never smoked tobacco 06/26/2023 Dyspnea on exertion 05/21/2023 Assessment & Plan (05/21/2023 11:47 AM EDT): With known CAD and stents, needs stress test Chest pain due to CAD 05/21/2023 Assessment & Plan (05/21/2023 11:48 AM EDT): Needs f/up cardiologfy Atherosclerosis of aorta (I70.0) 05/21/2023 Medicare annual wellness visit, initial 03/12/19 24 Assessment & Plan (04/02/2024 1:32 PM EST): [...] artery disease of n ative artery of [place] heart with stable angina pectoris 11/05/2022 Assessment [...] FM [address] [place] [address] [place] [phone] Christiano Peguero MD Arthritis of low back 07/20/2024 Refill [facility] [address] [place] [address] [place] [address] Lucinda Demarco PA Current mild episode of major depressive disorder without prior episode 06/26/2024 Abstract [facility] [address] [place] [address] [place] [address] Christiano Peguero MD from Last 3 Months [...] Diabetes: Hemoglobin A1C 06/30/2024 025, 06/18/2023, 03/12/2023 Influenza Vaccine (#1) 2024 4, 11/19/2022, 02/18/2022, Additional history exists Medicare Annual Wellness (AWV) 04/02/2025 04/02/2024 , 03/12/2023 Diabetes: Urine Protein Screening 04/03/2025 025, 03/15/2023 Pneumococcal Vaccine: 65+ Years Completed 7, 11/06/2014 Procedures Procedure Name Priority Date/Time Associated Diagnosis [...] EDT Narrative 07/31/2024 12:10 PM EDT The [address] [address] Magnetic Resonance Report Signed Patient: OLAF BRIONES MR#: [id number] : 1945 Acct:[id number] Age/Sex: 79 / M ADM Date: 07/31/24 Loc: MRI Attending Dr: David Scruggs NP Ordering Physician: David Scruggs NP Date of Service: 07/31/24 Procedure(s): MR lumbar spine wo con Accession Number(s): [id number] cc: CHRISTIANO PEGUERO ; David Scruggs NP [place] [id number] Patient Name: OLAF BRIONES MRN: [id number] date: 1945 Sex: M Assigned Patient Location: MRI Current Patient Location: MRI Accession/Order Number: [id number] Exam Date: 07/31/2024 11:52 Report Date: 07/31/2024 [...] Monreal M.D. 07/31/2024 12:07 PM Dictation Location: [place] [address] Electronically authenticated by: [id number] Y Date: 07/31/2024 12:07 Dictated By: Lucinda Monreal M.D. Signed By: 07/31/24 1210 DD/ 1207 TD/TT: Independent Beauty Consultant: Procedure Note Radiology, Radiologist, MD - 07/31/2024 The [place] [id number] Magnetic Resonance Report Signed Patient: OLAF BRIONES WMR#: [id number] : 1945cct:[id number] Age/Sex: 79 / MADM Date: 07/31/24 Loc: MRI Attending Dr: David Scruggs NP Ordering Physician: David Scruggs NP Date of Service: 07/31/24 Procedure(s): MR lumbar spine wo con Accession Number(s): [id number] cc: CHRISTIANO PEGUERO Anna NP The [address] [address] Patient Name: OLAF BRIONES MRN: [id number] date: 1945 Sex: M Assigned Patient Location: MRI Current Patient Location: MRI Accession/Order Number: [id number] Exam Date: 07/31/2024 11:52 Report Date: 07/31/2024 [...] Monreal M.D. 07/31/2024 12:07 PM Dictation Location: [place] [address] Electronically authenticated by: [id number] Y Date: 2:07 Dictated By: Lucinda Monreal M.D. Signed By:07/31/24 1210 DD/ 1207 TD/TT: Independent Beauty Consultant: us Generic External Data Provider [facility] [...] Performing Organization Information Site ID: QPT Name: [facility] Address: [address] [place] [address], [address] [place] [phone] Director: Brennon Zhong MD Christiano Peguero MD LAB URINE ORDERABLES Final Resul t [facility] * (ABNORMAL) POCT Glycated hemoglobin, total (04/02/2024 1:28 PM EST) Hemoglobin A1C 6.7 Blood 04/02/2024 1:28 PM EST Christiano Peguero MD POINT OF CARE TEST ENTER/EDIT OR DERABLES Final Result from Last 3 Months or Most Recently Relevant to Health Maintenance Insurance [place] [address] Care Teams Early Childhood Education Specialist Relationship Specialty Start Date End Date Christiano Peguero MD [facility] 110 [place] [address] PCP - General Family Medicine 10/09/22 Christiano Peguero MD [facility] 110 [place] [address] PCP - [facility] 05/20/23 06/17/65
--- OUTSIDE RECORDS SUMMARY | 2024-08-27 10:13 | XMS_ITS | Encounter Summary ---
Author Organization [facility] Address [address] [place] [address] Care Team Providers Care Swimmer Name Role Phone Christiano Coppola MD Primary Care Provider [phone] Christiano Coppola MD Unavailable Encounter Details Date Type Department Care Team (Late st Contact Info) Description 04/02/2024 Abstract [facility] [address] [place] [address] [place] [phone] Christiano Coppola MD [address] [place] [address] [place] [address] Social History Tobacco Use Types Packs/Day Years [...] documented as of this encounter Care Teams Swimmer Relationship Specialty Start Date End Date Christiano Coppola MD [address] [facility] 110 [place] [address] PCP - General Family Medicine 10/09/22 Christiano Coppola MD [address] [facility] 110 [place] [address] PCP - [facility] 05/20/23 06/17/65 documented as of this encounter
--- OUTSIDE RECORDS SUMMARY | 2024-08-27 10:13 | XMS_ITS | Encounter Summary ---
Author Organization [facility] Address [address] [place] [address] Phone Care Team Providers Care Slitter Service And Setter Name Role Phone Daniel Hernandez MD Primary Care Provider [phone] Christiano Coppola MD Primary Care Provider [phone] Encounter Details Date Type Department Care Team (Late st Contact Info) Description 12/21/2022 Patient Risk Score AC Care Management [address] [place] [address] [place] [phone] Social History Tobacco Use Types Packs/Day Years [...] on filedocumented in this encounter Care Teams Slitter Service And Setter Relationship Specialty Start Date End Date Daniel Hernandez MD [address] [place] [address] [place] [address] PCP - General 09/05/22 01/08/23 Christiano Coppola MD [address] [place] [address] [place] [address] PCP - General Family Medicine 01/09/23 documented as of this encounter
--- OUTSIDE RECORDS SUMMARY | 2024-08-27 10:13 | XMS_ITS | Clinical Summary ---
Author Organization [facility] Address [address] [place] [address] Phone Care Team Providers Care Laboratory Animal Facility Supervisor Name Role Phone Christiano Coppola MD Primary Care Provider [phone] Allergies Active Allergy Reactions Criticality Noted Date [...] Vaccine ( season) 2023 02/06/2021, 04/12/2020, 03/22/2020 Influenza Vaccine (#1) 2024 4, 11/06/2023, 11/19/2022, Additional history exists DTaP/Tdap/Td Vaccines (2 - Td or Tdap) 03/27/2031 03/27/2021 Pneumococcal Vaccine Completed 02/19/2016, 11/06/2014, 09/11/2010 HIB Vaccines Aged Out No longer eligi [...] HEALTHCARE MEDICARE UNITED HEALTHCARE MEDICARE Care Teams Laboratory Animal Facility Supervisor Relationship Specialty Start Date End Date Christiano Coppola MD PCP - General Family Medicine 01/09/23
--- OUTSIDE RECORDS SUMMARY | 2024-08-27 10:13 | XMS_ITS | Encounter Summary ---
Author Organization [facility] Address [address] [place] [address] Care Team Providers Care Extractor Plant Operator Name Role Phone Christiano Peguero MD Primary Care Provider [phone] Christiano Peguero MD Unavailable Encounter Details Date [...] EDT Narrative 11/29/2023 4:59 AM EDT The [address] [address] XRay Report Signed Patient: OLAF BRIONES MR#: [id number] : 1945 Acct:[id number] Age/Sex: 78 / M ADM Date: 11/28/23 Loc: RAD Attending Dr: Shanna Ivory M.D. Ordering Physician: Shanna Ivory M.D. Date of Service: 11/28/23 Procedure(s): XR abdomen 1V Accession Number(s): [id number] cc: CHRISTIANO PEGUERO ; Shanna Ivory M.D. The [address] [id number] Patient Name: OLAF BRIONES MRN: [id number] date: 1945 Sex: M Assigned Patient Location: RAD Current Patient Location: Accession/Order Number: [id number] Exam Date: 11/28/2023 08:32 Report Date: 11/29/2023 [...] M.D. Signed By: 11/29/23458 DD/ 5 TD/TT: Ordnance Engineer: Procedure Note Radiology, Radiologist, MD - 11/29/[address] [place] [address] XRay Report Signed Patient: OLAF BRIONES WMR#: [id number] : 1945cct:[id number] Age/Sex: 78 / MADM Date: 11/28/23 Loc: RAD Attending Dr: Shanna Ivory M.D. Ordering Physician: Shanna Ivory M.D. Date of Service: 11/28/23 Procedure(s): XR abdomen 1V Accession Number(s): [id number] cc: CHRISTIANO PEGUERO ; Shanna Ivory M.D. [address] [id number] Patient Name: OLAF BRIONES MRN: [id number] date: 1945 Sex: M Assigned Patient Location: [facility] Current Patient Location: Accession/Order Number: [id number] Exam Date: 11/28/2023 08:32 Report Date: 11/29/2023 [...] M.D. Signed By:11/29/23 0459 DD/ 0456 TD/TT: Ordnance Engineer: Generic External Data Provider [facility] Final Result documented in this encounter Visit Diagnoses Not on filedocumented in this encounter Additional Health Concerns Assessment Noted Time PHQ-9 Depression Total Score: 9 06/18/19 24 11:06 AM EDT documented as of this encounter Care Teams Extractor Plant Operator Relationship Specialty Start Date End Date Christiano Peguero MD [address] [facility] 110 [place] [address] PCP - General Family Medicine 10/09/22 Christiano Peguero MD [address] [facility] 110 [place] [address] PCP - [facility] 05/20/23 06/17/65 documented as of this encounter
--- OUTSIDE RECORDS SUMMARY | 2024-08-27 10:13 | XMS_ITS | Encounter Summary ---
Author Organization [facility] Address [address] [place] [address] Care Team Providers Care Aviculturist Name Role Phone Christiano Coppola MD Primary Care Provider [phone] Christiano Coppola MD Unavailable Encounter Details Date Type Department Care Team (Late st Contact Info) Description 06/19/2023 Orders Only [facility] [address] [place] [address] [place] [phone] Unallocated, Noms Provider, [address] [place] [address] Social History Tobacco Use Types Packs/Day Years [...] documented as of this encounter Care Teams Aviculturist Relationship Specialty Start Date End Date Christiano Coppola MD [address] [place] [address] [place] [address] PCP - General Family Medicine 10/09/22 Christiano Coppola MD [address] [facility] 110 [place] [address] PCP - [facility] 05/20/23 06/17/65 documented as of this encounter
--- OUTSIDE RECORDS SUMMARY | 2024-08-27 10:13 | XMS_ITS | Encounter Summary ---
Author Organization [facility] Address [address] [place] [address] Care Team Providers Care Pst Supervisor Name Role Phone Christiano Coppola MD Primary Care Provider [phone] Christiano Coppola MD Unavailable Encounter Details Date Type Department Care Team (Late st Contact Info) Description 04/09/2024 Abstract [facility] 112 [facility] 110 [place] [phone] Christiano Coppola MD [address] [place] [address] [place] [address] Social History Tobacco Use Types Packs/Day Years [...] documented as of this encounter Care Teams Pst Supervisor Relationship Specialty Start Date End Date Christiano Coppola MD [address] [facility] 110 [place] [address] PCP - General Family Medicine 10/09/22 Christiano Coppola MD [address] [facility] 110 [place] [address] PCP - [facility] 05/20/23 06/17/65 documented as of this encounter
--- OUTSIDE RECORDS SUMMARY | 2024-08-27 10:13 | XMS_ITS | Encounter Summary ---
Author Organization [facility] Address [address] [place] [address] Phone Care Team Providers Care Automotive Electrical Fitter Name Role Phone Christiano Coppola MD Primary Care Provider [phone] Encounter Details Date Type Department Care Team (Late st Contact Info) Description 01/20/2023 Patient Risk Score ACO Care Management [address] [facility] [place] [address] [place] [address] Social History Tobacco Use Types [...] documented as of this encounter Care Teams Automotive Electrical Fitter Relationship Specialty Start Date End Date Christiano Coppola MD PCP - General Family Medicine 01/09/23 documented as of this encounter
--- OUTSIDE RECORDS SUMMARY | 2024-08-27 10:13 | XMS_ITS | Encounter Summary ---
Author Organization [facility] Address [address] [place] [address] Care Team Providers Care Test Baker Name Role Phone Christiano Coppola MD Primary Care Provider [phone] Christiano Coppola MD Unavailable Encounter Details Date Type Department Care Team (Late st Contact Info) Description 05/06/2024 Abstract [facility] 112 [facility] 110 [place] [phone] Christiano Coppola MD [address] [facility] 110 [place] [address] Social History Tobacco Use Types Packs/Day Years [...] documented as of this encounter Care Teams Test Baker Relationship Specialty Start Date End Date Christiano Coppola MD [address] [facility] 110 [place] [address] PCP - General Family Medicine 10/09/22 Christiano Coppola MD [address] [facility] 110 [place] [address] PCP - [facility] 05/20/23 06/17/65 documented as of this encounter
--- OUTSIDE RECORDS SUMMARY | 2024-08-27 10:13 | XMS_ITS | Clinical Summary ---
Author Organization [facility] Address [address] [place] [address] Care Team Providers Care Director Software Development Name Role Phone Mora Barraza MD Primary [...] per urology Coronary artery disease invo lving [place] coronary artery of [place] heart 08/27/2022 Assessment & Plan (08/31/2022 8:51 [...] original vaccine, a ge 12+ yr, monovalent (AlleantiaNTBrandark - PURPLE TOP) 02/06/2021,04/12/2020,03/28/2020 influenza (HD-IIV3) vaccine, [...] - 1-dose 75+ series) 2020 Covid-19 Vaccine (2023-2 5 season) 2023 02/06/2021, 04/12/2020, 03/28/2020 Advance Directive Discussion 02/19/2024 Influenza Vaccine (#1) 2024 , 12/26/2021, 11/18/2020, Additional history exists Diabetes Screening [...] - 8.0 g/dL 08/31/2022 1:30 AM EDT [facility] Albumin 3.8(L) 3.9 - 4.9 g/dL 08/31/2022 1:30 AM EDT [facility] Calcium, Total 9.1 8.5 - 10.2 mg/dL 08/31/2022 1:30 AM EDT [facility] Bilirubin, Total 0.3 0.2 - 1.3 mg/dL 08/31/2022 1:30 AM [facility] Alkaline Phosphatase 116(H) 38 - 113 U/L 08/31/2022 1:30 AM [facility] AST 19 14 - 40 U/L 08/31/2022 1:30 AM [facility] ALT 23 10 - 54 U/L 08/31/2022 1:30 AM [facility] Glucose 114(H) 74 - 99 mg/dL 08/31/2022 1:30 AM [facility] Comment: The [place] Diabetes Association (ADA) provides guidance for cutoff [...] Standards of Medical Care in Diabetes 2016, [place] Diabetes Association. Diabetes Care. 2016.39(Suppl 1). BUN 21 9 - 24 mg/dL 08/31/2022 1:30 AM [facility] Creatinine 0.88 0.73 - 1.22 mg/dL 08/31/2022 1:30 AM [facility] Sodium 139 136 - 144 mmol/L 08/31/2022 1:30 AM [facility] Potassium 4.2 3.7 - 5.1 mmol/L 08/31/2022 1:30 AM [facility] Chloride 105 97 - 105 mmol/L 08/31/2022 1:30 AM [facility] CO2 25 22 - 30 mmol/L 08/31/2022 1:30 AM [facility] Anion Gap 9 9 - 18 mmol/L 08/31/2022 1:30 AM [facility] Estimated Glomerular Filtration Rate 89 >=60 mL/min/1.7 3m 08/31/2022 1:30 AM EDT [facility] Comment:Estimated Glomerular Filtration Rate [...] us Ria Herrera MD LABORATORY Final Result [facility] [address] [place] [id number], from Last 3 Months or Most Recently Relevant to Health Maintenance Insurance Care Teams Director Software Development Relationship Specialty Start Date End Date Mora Barraza MD PCP - General Family Medicine 08/31/22
--- OUTSIDE RECORDS SUMMARY | 2024-08-27 10:13 | XMS_ITS | Encounter Summary ---
Author Organization [facility] Address [address] [place] [address] Care Team Providers Care Fire Management Officer Name Role Phone Christiano Coppola MD Primary Care Provider [phone] Christiano Coppola MD Unavailable Encounter Details Date Type Department Care Team (Late st Contact Info) Description 03/13/2024 Abstract [facility] 112 [facility] 110 [place] [phone] Christiano Coppola MD [address] [facility] 110 [place] [address] Social History Tobacco Use Types Packs/Day Years [...] documented as of this encounter Care Teams Fire Management Officer Relationship Specialty Start Date End Date Christiano Coppola MD [address] [facility] 110 [place] [address] PCP - General Family Medicine 10/09/22 Christiano Coppola MD [address] [facility] 110 [place] [address] PCP - [facility] 05/20/23 06/17/65 documented as of this encounter
--- OUTSIDE RECORDS SUMMARY | 2024-08-27 10:13 | XMS_ITS | Clinical Summary ---
Author Organization [facility] Address [address] [place] [address] Care Team Providers Care Curriculum Writer Name Role Phone Unavailable Primary Care Provider [...] - 2023-2 5 season) 2023 Influenza Vaccine (#1) 2024 HIB Vaccines Aged Out No longer [...] patient's age to complete this topic Insurance [facility] UNITED HEALTHCARE MEDICARE
--- OUTSIDE RECORDS SUMMARY | 2024-08-27 10:14 | XMS_ITS | Encounter Summary ---
Author Organization [facility] Address [address] [place] [address] Care Team Providers Care Vehicle Dynamics Engineer Name Role Phone Christiano Coppola MD Primary Care Provider [phone] Christiano Coppola MD Unavailable Encounter Details Date Type Department Care Team (Late st Contact Info) Description 11/21/2022 Orders Only [facility] [address] [facility] 110 [place] [address] A, Unknown Practice [address] [place], [place] [phone] Social History Tobacco Use Types Packs/Day Years [...] on filedocumented in this encounter Care Teams Vehicle Dynamics Engineer Relationship Specialty Start Date End Date Christiano Coppola MD [address] [place] [address] [place], [place] [phone] PCP - General Family Medicine 10/09/22 Christiano Coppola MD [address] [place] [address] [place] [address] [facility] 05/20/23 06/17/65 documented as of this encounter
--- OUTSIDE RECORDS SUMMARY | 2024-08-27 10:14 | XMS_ITS | Encounter Summary ---
Author Organization [facility] Address [address] [place] [address] Care Team Providers Care Robotic Maintenance Technician Name Role Phone Christiano Coppola MD Primary Care Provider [phone] Christiano Coppola MD Unavailable Encounter Details Date Type Department Care Team (Late st Contact Info) Description 03/13/2023 Abstract [facility] [address] [facility] 110 [place] [phone] Christiano Coppola MD [address] [facility] 110 [place] [address] Social History Tobacco Use Types Packs/Day Years [...] on filedocumented in this encounter Care Teams Robotic Maintenance Technician Relationship Specialty Start Date End Date Christiano Coppola MD [address] [facility] 110 [place] [address] PCP - General Family Medicine 10/09/22 Christiano Coppola MD [address] [facility] 110 [place] [address] PCP - [facility] 05/20/23 06/17/65 documented as of this encounter
--- OUTSIDE RECORDS SUMMARY | 2024-08-27 10:14 | XMS_ITS | Encounter Summary ---
Author Organization [facility] Address [address] [place] [address] Care Team Providers Care Wagon Drill Operator Name Role Phone Christiano Peguero MD Primary Care Provider [phone] Christiano Peguero MD Unavailable Encounter Details Date [...] Narrative 01/17/2023 12:22 PM EST The [address] [address] Magnetic Resonance Report Signed Patient: OLAF BRINOES MR#: [id number] : 1945 Acct:[id number] Age/Sex: 77 / M ADM Date: 01/17/23 Loc: MRI Attending Dr: David Scruggs NP Ordering Physician: David Scruggs NP Date of Service: 01/17/23 Procedure(s): MR lumbar spine wo con Accession Number(s): [id number] cc: CHRISTIANO PEGUERO Anna NP [address], [place] [address] Patient Name: OLAF BRIONES MRN: [id number] date: 1945 Sex: M Assigned Patient Location: MRI Current Patient Location: MRI Accession/Order Number: [id number] Exam Date: 01/17/2023 11:00 Report Date: 01/17/2023 [...] Signed By: 01/17/23 1225 DD/ 1222 TD/TT: Padded Products Inspector Trimmer: Procedure Note Radiology, Radiologist, MD - 01/17/2023 [place] [address] Magnetic Resonance Report Signed Patient: OLAF BRIONES WMR#: [id number] : 1945cct:[id number] Age/Sex: 77 / MADM Date: 01/17/23 Loc: MRI Attending Dr: David Scruggs MANAGER OF CUSTOMER BILLING Ordering Physician: David Scruggs NP Date of Service: 01/17/23 Procedure(s): MR lumbar spine wo con Accession Number(s): [id number] cc: CHRISTIANO PEGUERO ; David Scruggs NP [place] [address] Patient Name: OLAF BRIONES MRN: [id number] date: 1945 Sex: M Assigned Patient Location: MRI Current Patient Location: MRI Accession/Order Number: [id number] Exam Date: 01/17/2023 11:00 Report Date: 01/17/2023 [...] M.D. Signed By:01/17/23 1225 DD/ 1222 TD/TT: Padded Products Inspector Trimmer: Generic External Data Provider [facility] Final Result documented in this encounter Visit Diagnoses Not on filedocumented in this encounter Care Teams Wagon Drill Operator Relationship Specialty Start Date End Date Christiano Peguero MD [address] [place] [address] [address] PCP - General Family Medicine 10/09/22 Christiano Peguero MD [address] [address] [facility] 05/20/23 06/17/65 documented as of this encounter
--- OUTSIDE RECORDS SUMMARY | 2024-08-27 10:14 | XMS_ITS | Encounter Summary ---
Author Organization [facility] Address [address] [facility] [place] [address] Care Team Providers Care Motorbike Courier Name Role Phone Christiano Coppola MD Primary Care Provider [phone] Christiano Coppola MD Unavailable Encounter Details Date Type Department Care Team (Late st Contact Info) Description 12/27/2022 Abstract [facility] [address] [facility] 110 [place] [phone] Christiano oCppola MD [address] [facility] 110 [place] [address] Social History Tobacco Use Types Packs/Day Years [...] on filedocumented in this encounter Care Teams Motorbike Courier Relationship Specialty Start Date End Date Christiano Coppola MD [address] [facility] 110 [place] [address] PCP - General Family Medicine 10/09/22 Christiano Coppola MD [address] [facility] 110 [place] [address] PCP - [facility] 05/20/23 06/17/65 documented as of this encounter
--- OUTSIDE RECORDS SUMMARY | 2024-08-27 10:14 | XMS_ITS | Encounter Summary ---
Author Organization [facility] Address [address] [place] [address] Care Team Providers Care Set Up Mold Technician Name Role Phone Christiano Peugero MD Primary Care Provider [phone] Christiano Peguero MD Unavailable Encounter Details Date [...] EDT Narrative 09/13/2023 6:21 PM EDT The [address] [address] XRay Report Signed Patient: OLAF BRIONES MR#: [id number] : 1945 Acct:[id number] Age/Sex: 78 / M ADM Date: 09/13/23 Loc: CARD Attending Dr: Non-Staff Physician Villatoro Ordering Physician: Sisi Martinez M.D. Date of Service: 09/13/23 Procedure(s): XR chest 2V Accession Number(s): [id number] cc: CHRISTIANO PEGUERO ; PhysicianSisi M.D. The [address] [address] Patient Name: OLAF BRIONES MRN: [id number] date: 1945 Sex: M Assigned Patient Location: CARD Current Patient Location: CARD Accession/Order Number: [id number] Exam Date: 09/13/2023 08:42 Report Date: 09/13/2023 [...] M.D. Signed By: 09/13/231820 DD/ 18 TD/TT: Lawyer Criminal: Procedure Note Radiology, Radiologist, MD - 09/16/2023 [place] [address] XRay Report Signed Patient: OLAF BRIONES WMR#: [id number] : 1945cct:[id number] Age/Sex: 78 / MADM Date: 09/13/23 Loc: CARD Attending Dr: Non-Staff Physician Villatoro Ordering Physician: Sisi Martinez M.D. Date of Service: 09/13/23 Procedure(s): XR chest 2V Accession Number(s): [id number] cc: CHRISTIANO PEGUERO ; PhysicianSisi M.D. The [address] [address] Patient Name: OLAF BRIONES MRN: [facility]:[id number] date: 1945 Sex: M Assigned Patient Location: CARD Current Patient Location: CARD Accession/Order Number: [id number] Exam Date: 09/13/2023 08:42 Report Date: 09/13/2023 [...] Weir M.D. Signed By:09/13/231820 DD/ 18 TD/TT: Lawyer Criminal: Generic External Data Provider [facility] Final Result documented in this encounter Visit Diagnoses Not on filedocumented in this encounter Additional Health Concerns Assessment Noted Time PHQ-9 Depression Total Score: 9 06/18/19 24 11:06 AM EDT documented as of this encounter Care Teams Set Up Mold Technician Relationship Specialty Start Date End Date Christiano Peguero MD [address] [facility] 110 [place] [address] PCP - General Family Medicine 10/09/22 Christiano Peguero MD [address] [facility] 110 [place] [address] PCP - [facility] 05/20/23 06/17/65 documented as of this encounter
--- OUTSIDE RECORDS SUMMARY | 2024-08-27 10:14 | XMS_ITS | Encounter Summary ---
Author Organization [facility] Address [address] [place] [address] Care Team Providers Care Retort Load Expediter Name Role Phone Christiano Coppola MD Primary Care Provider [phone] Christiano Coppola MD Unavailable Encounter Details Date Type Department Care Team (Late st Contact Info) Description 02/04/2023 Abstract [facility] [address] [facility] 110 [place] [phone] Christiano Coppola MD [address] [facility] 110 [place] [address] Social History Tobacco Use Types Packs/Day Years [...] on filedocumented in this encounter Care Teams Retort Load Expediter Relationship Specialty Start Date End Date Christiano Coppola MD [address] [facility] 110 [place] [address] PCP - General Family Medicine 10/09/22 Christiano Coppola MD [address] [facility] 110 [place] [address] PCP - [facility] 05/20/23 06/17/65 documented as of this encounter
--- OUTSIDE RECORDS SUMMARY | 2024-08-27 10:14 | XMS_ITS | Encounter Summary ---
Author Organization [facility] Address [address] [place] [address] Care Team Providers Care Auto Service Writer Name Role Phone Christiano Peguero MD Primary Care Provider [phone] Christiano Peguero MD Unavailable Encounter Details Date [...] EDT Narrative 09/13/2023 3:05 PM EDT The [address] [address] Cardiology Report Signed Patient: OLAF BRIONES MR#: [id number] : 1945 Acct:[id number] Age/Sex: 78 / M ADM Date: 09/13/23 Loc: CARD Attending Dr: Non-Staff Physician Villatoro Ordering Physician: Sisi Martinez M.D. Date of Service: 09/13/23 Procedure(s): CA echo doppler complete Accession Number(s): [id number] cc: CHRISTIANO PEGUERO ; Physician,Non-Staff Irving Patient Name: OLAF BRIONES MR#: [id number] : 1945 Exam Date: 09/13/2023 Ordering Doctor: [...] Signed By: 09/13/23 1505 DD/ 1504 TD/TT: Supervisor Train Operations: Procedure Note Radiology, Radiologist, - 09/13/2023 [place] [address] Cardiology Report Signed Patient: OLAF BRIONES WMR#: [id number] : 1945cct:[id number] Age/Sex: 78 / MADM Date: 09/13/23 Loc: CARD Attending Dr: Non-Staff Physician Irving Ordering Physician: Sisi Martinez M.D. Date of Service: 09/13/23 Procedure(s): CA echo doppler complete Accession Number(s): [id number] cc: CHRISTIANO PEGUERO ; Sisi Martinez M.D. Patient Name: OLAF BRIONES MR#: [id number] : 1945 Exam Date: 09/13/2023 Ordering Doctor: [...] M.D. Signed By:09/13/23 1505 DD/ 1504 TD/TT: Supervisor Train Operations: us Generic External Data Provider [facility] Final Result documented in this encounter Visit Diagnoses Not on filedocumented in this encounter Additional Health Concerns Assessment Noted Time PHQ-9 Depression Total Score: 9 06/18/19 24 11:06 AM EDT documented as of this encounter Care Teams Auto Service Writer Relationship Specialty Start Date End Date Christiano Peguero MD 112 [facility] 110 [place] [address] PCP - General Family Medicine 10/09/22 Christiano Peguero MD 112 [facility] 110 [place] [address] PCP - [facility] 05/20/23 06/17/65 documented as of this encounter
--- OUTSIDE RECORDS SUMMARY | 2024-08-27 10:14 | XMS_ITS | Encounter Summary ---
Author Organization [facility] Address [address] [place] [address] Care Team Providers Care Senior Rd Engineer Name Role Phone Christiano Peguero MD Primary Care Provider [phone] Christiano Peguero MD Unavailable Encounter Details Date [...] EDT Narrative 11/20/2022 11:58 AM EDT The [address] [address] XRay Report Signed Patient: OLAF BRIONES MR#: [id number] : 1945 Acct:[id number] Age/Sex: 77 / M ADM Date: 11/20/22 Loc: RAD Attending Dr: Shanna Ivory M.D. Ordering Physician: Shanna Ivory M.D. Date of Service: 11/20/22 Procedure(s): XR abdomen 1V Accession Number(s): [id number] cc: CHRISTIANO PEGUERO ; Shanna Ivory M.D. The [address] [address] Patient Name: OLAF BRIONES MRN: [id number] date: 1945 Sex: M Assigned Patient Location: [facility] Current Patient Location: RAD Accession/Order Number: [id number] Exam Date: 11/20/2022 11:02 Report Date: 11/20/2022 [...] Signed By: 11/20/22 1201 DD/ 1158 TD/TT: Farm Hand: Procedure Note Radiology, Radiologist, MD - 11/20/2022 [place] [address] XRay Report Signed Patient: OLAF BRIONES WMR#: [id number] : 1945cct:[id number] Age/Sex: 77 / MADM Date: 11/20/22 Loc: RAD Attending Dr: Shanna Ivory M.D. Ordering Physician: Shanna Ivory M.D. Date of Service: 11/20/22 Procedure(s): XR abdomen 1V Accession Number(s): [id number] cc: CHRISTIANO PEGUERO Patrick M.D. The [address] [id number] Patient Name: OLAF BRIONES MRN: [id number] date: 1945 Sex: M Assigned Patient Location: [facility] Current Patient Location: RAD Accession/Order Number: [id number] Exam Date: 11/20/2022 11:02 Report Date: 11/20/2022 [...] M.D. Signed By:11/20/22 1201 DD/ 1158 TD/TT: Farm Hand: us Generic External Data Provider [facility] Final Result documented in this encounter Visit Diagnoses Not on filedocumented in this encounter Care Teams Senior Rd Engineer Relationship Specialty Start Date End Date Christiano Peguero MD [address] [facility] 110 [place] [address] PCP - General Family Medicine 10/09/22 Christiano Peguero MD [address] [facility] 110 [place] [address] PCP - [facility] 05/20/23 06/17/65 documented as of this encounter
--- OUTSIDE RECORDS SUMMARY | 2024-08-27 10:14 | XMS_ITS | Encounter Summary ---
Author Organization [facility] Address [address] [place] [address] Care Team Providers Care Health Science Instructor Name Role Phone Christiano Coppola MD Primary Care Provider [phone] Christiano Coppola MD Unavailable Encounter Details Date Type Department Care Team (Late st Contact Info) Description 02/13/2023 Abstract [facility] [address] [facility] 110 [place] [phone] Christiano Coppola MD [address] [facility] 110 [place] [address] Social History Tobacco Use Types Packs/Day Years [...] on filedocumented in this encounter Care Teams Health Science Instructor Relationship Specialty Start Date End Date Christiano Coppola MD [address] [facility] 110 [place] [address] PCP - General Family Medicine 10/09/22 Christiano Coppola MD [address] [facility] 110 [place] [address] PCP - [facility] 05/20/23 06/17/65 documented as of this encounter
--- OUTSIDE RECORDS SUMMARY | 2024-08-27 10:14 | XMS_ITS | Encounter Summary ---
Author Organization [facility] Address [address] [place] [address] Care Team Providers Care Area Supervisor Name Role Phone Christiano Peguero MD Primary Care Provider [phone] Christiano Peguero MD Unavailable Encounter Details Date [...] EST Narrative 12/27/2022 11:37 PM EST The [address] [address] XRay Report Signed Patient: OLAF BRIONES MR#: [id number] : 1945 Acct:[id number] Age/Sex: 77 / M ADM Date: 12/27/22 Loc: RAD Attending Dr: David Scruggs NP Ordering Physician: David Scruggs NP Date of Service: 12/27/22 Procedure(s): XR lumbar spine 6V w bending Accession Number(s): [id number] cc: CHRISTIANO PEGUERO Anna NP The [place] [id number] Patient Name: OLAF BRIONES MRN: [id number] date: 1945 Sex: M Assigned Patient Location: RAD Current Patient Location: [facility] Accession/Order Number: [id number] Exam Date: 12/27/2022 15:20 Report Date: 12/27/2022 [...] M.D. Signed By: 12/27/222338 DD/ 36 TD/TT: Patient Care Associate: Procedure Note Radiology, Radiologist, MD - 12/28/[address] [address] XRay Report Signed Patient: OLAF BRIONES WMR#: [id number] : 1945cct:[id number] Age/Sex: 77 / MADM Date: 12/27/22 Loc: ILIA Attending Dr: David Scruggs NP Ordering Physician: David Scruggs NP Date of Service: 12/27/22 Procedure(s): XR lumbar spine 6V w bending Accession Number(s): [id number] cc: CHRISTIANO PEGUERO ; David Scruggs MEMBER SERVICES COORDINATOR [place] [address] Patient Name: OLAF BRIONES MRN: [facility]:[id number] date: 1945 Sex: M Assigned Patient Location: [facility] Current Patient Location: [facility] Accession/Order Number: [id number] Exam Date: 12/27/2022 15:20 Report Date: 12/27/2022 [...] Scott M.D. Signed By:12/27/222338 DD/ 36 TD/TT: Patient Care Associate: Generic External Data Provider [facility] Final Result documented in this encounter Visit Diagnoses Not on filedocumented in this encounter Care Teams Area Supervisor Relationship Specialty Start Date End Date Christiano Peguero MD [address] [place] [address] [address] PCP - General Family Medicine 10/09/22 Christiano Peguero MD [address] [place] [address] [address] [facility] 05/20/23 06/17/65 documented as of this encounter
--- OUTSIDE RECORDS SUMMARY | 2024-08-27 10:14 | XMS_ITS | Encounter Summary ---
Author Organization [facility] Address [address] [facility] [place] [address] Care Team Providers Care Collection Systems Technician Name Role Phone Christiano Coppola MD Primary Care Provider [phone] Christiano Coppola MD Unavailable Encounter Details Date Type Department Care Team (Late st Contact Info) Description 01/17/2023 Abstract [facility] FM [address] [facility] 110 [place] [phone] Christiano Coppola MD [address] [facility] 110 [place] [address] Social History Tobacco Use Types Packs/Day Years [...] on filedocumented in this encounter Care Teams Collection Systems Technician Relationship Specialty Start Date End Date Christiano Coppola MD [address] [facility] 110 [place] [address] PCP - General Family Medicine 10/09/22 Christiano Coppola MD [address] [facility] 110 [place] [address] [facility] 05/20/23 06/17/65 documented as of this encounter
--- OUTSIDE RECORDS SUMMARY | 2024-08-27 10:14 | XMS_ITS | Encounter Summary ---
Author Organization [facility] Address [address] [facility] [place] [address] Care Team Providers Care Fractionation Supervisor Name Role Phone Christiano Coppola MD Primary Care Provider [phone] Christiano Coppola MD Unavailable Encounter Details Date Type Department Care Team (Late st Contact Info) Description 03/06/2023 Abstract [facility] FM [address] [facility] 110 [place] [phone] Christiano Coppola MD [address] [facility] 110 [place] [address] Social History Tobacco Use Types Packs/Day Years [...] on filedocumented in this encounter Care Teams Fractionation Supervisor Relationship Specialty Start Date End Date Christiano Coppola MD [address] [facility] 110 [place] [address] PCP - General Family Medicine 10/09/22 Christiano Coppola MD [address] [facility] 110 [place] [address] PCP - [facility] 05/20/23 06/17/65 documented as of this encounter
--- OUTSIDE RECORDS SUMMARY | 2024-08-27 10:14 | XMS_ITS | Encounter Summary ---
Author Organization [facility] Address [address] [place] [address] Care Team Providers Care Event Specialist Product Demonstrator Name Role Phone Christiano Peguero MD Primary Care Provider [phone] Christiano Peguero MD Unavailable Encounter Details Date Type Department Care Team (Late st Contact Info) Description 06/11/2023 Clinisync Result Encounter N[facility] External Department Unsolicited Christiano Peguero MD [address] [facility] 110 [place] [address] Social History Tobacco Use Types [...] EDT Narrative 06/11/2023 1:28 PM EDT The [address] [address] Nuclear Medicine Report Signed Patient: OLAF BRIONES MR#: [id number] : 1945 Acct:[id number] Age/Sex: 77 / M ADM Date: 06/11/23 Loc: NM Attending Dr: CHRISTIANO PEGUERO Ordering Physician: CHRISTIANO PEGUERO Date of Service: 06/11/23 Procedure(s): NM tara perf SPECT rest str Accession Number(s): [id number] cc: CHRISTIANO PEGUERO Patient Name: OLAF BRIONES MR#: [id number] : 1945 Exam Date: 06/11/2023 Ordering Doctor: [...] Signed By: 06/11/23 1328 DD/ 1327 TD/TT: Product Development Actuary: Procedure Note Radiology, Radiologist, - 06/12/2023 [place] [address] Nuclear Medicine Report Signed Patient: OLAF BRIONES WMR#: [id number] : 1945cct:[id number] Age/Sex: 77 / MADM Date: 06/11/23 Loc: NM Attending Dr: CHRISTIANO PEGUERO Ordering Physician: CHRISTIANO PEGUERO Date of Service: 06/11/23 Procedure(s): NM tara perf SPECT rest str Accession Number(s): [id number] cc: RAMAN PEGUERODEV Patient Name: OLAF BRIONES MR#: [id number] : 1945 Exam Date: 06/11/2023 Ordering Doctor: [...] M.D. Signed By:06/11/23 1328 DD/ 1327 TD/TT: Product Development Actuary: us Christiano Peguero MD [facility] Final Result documented in this encounter Visit Diagnoses Not on filedocumented in this encounter Care Teams Event Specialist Product Demonstrator Relationship Specialty Start Date End Date Christiano Peguero MD [address] [facility] 110 [place] [address] PCP - General Family Medicine 10/09/22 Christiano Peguero MD [address] [facility] 110 [place] [address] PCP - [facility] 05/20/23 06/17/65 documented as of this encounter
--- OUTSIDE RECORDS SUMMARY | 2024-08-27 10:14 | XMS_ITS | Encounter Summary ---
Author Organization [facility] Address [address] [place] [address] Care Team Providers Care Staffing Specialist Name Role Phone Christiano Coppola MD Primary Care Provider [phone] Christiano Coppola MD Unavailable Encounter Details Date Type Department Care Team (Late st Contact Info) Description 03/18/2023 Abstract [facility] FM [address] [facility] 110 [place] [phone] Christiano Coppola MD [address] [facility] 110 [place] [address] Social History Tobacco Use Types Packs/Day Years [...] on filedocumented in this encounter Care Teams Staffing Specialist Relationship Specialty Start Date End Date Christiano Coppola MD [address] [facility] 110 [place] [address] PCP - General Family Medicine 10/09/22 Christiano Coppola MD [address] [facility] 110 [place] [address] PCP - [facility] 05/20/23 06/17/65 documented as of this encounter
--- OUTSIDE RECORDS SUMMARY | 2024-08-27 10:14 | XMS_ITS | Encounter Summary ---
Author Organization [facility] Address [address] [place] [address] Care Team Providers Care Hydraulic Jack Mechanic Name Role Phone Christiano Coppola MD Primary Care Provider Christiano Coppola MD Unavailable Encounter Details Date [...] AM EDT Narrative 09/23/2023 7:48 AM EDT [address] [address] Respiratory Report Signed Patient: OLAF BRIONES MR#: [id number] : 1945 Acct:[id number] Age/Sex: 78 / M ADM Date: 09/13/23 Loc: CARD Attending Dr: Non-Staff Physician Villatoro Ordering Physician: Sisi Martinez M.D. Date of Service: 09/13/23 Procedure(s): RT pulmonary function test Accession Number(s): [id number] cc: The [facility] Test Date: 2023-09-13 Pat Name: OLAF BRIONES Department: Room: - Gender: Male Cloth Bleaching Range Back Tender: Corrine Salinas,SYSTEMS ADMINISTRATION ANALYST : 1945 Requested By: [id number] Order Number: [id number] Reading MD: Martin Tucker Interpretive Statements Spirometry [...] Signed By: 09/23/23 0748 DD/ 0744 TD/TT: High School Foreign Language Tutor: Procedure Note Radiology, Radiologist, - 09/23/2023 [place] [address] Respiratory Report Signed Patient: OLAF BRIONES WMR#: [id number] : 1945cct:[id number] Age/Sex: 78 / MADM Date: 09/13/23 Loc: CARD Attending Dr: Non-Staff Physician Villatoro Ordering Physician: Sisi Martinez M.D. Date of Service: 09/13/23 Procedure(s): RT pulmonary function test Accession Number(s): [id number] cc: The [facility] Test Date: 2023-09-13 Pat Name: OLAF BRIONES Department: Room: - Gender: Male Cloth Bleaching Range Back Tender: Corrine SalinasTOYA : 1945 Requested By: [id number] Order Number: [id number] Reading MD: Martin Tucker Interpretive Statements Spirometry [...] Tucker D.O. Signed By:09/23/23 0748 DD/ TD/TT: High School Foreign Language Tutor: us Generic External Data Provider [facility] Final Result documented in this encounter Visit Diagnoses Not on filedocumented in this encounter Additional Health Concerns Assessment Noted Time PHQ-9 Depression Total Score: 9 06/18/19 24 11:06 AM EDT documented as of this encounter Care Teams Hydraulic Jack Mechanic Relationship Specialty Start Date End Date Christiano Coppola MD [address] [facility] 110 [place] [address] PCP - General Family Medicine 10/09/22 Christiano Coppola MD [address] [facility] 110 [place] [address] PCP - [facility] 05/20/23 06/17/65 documented as of this encounter
--- OUTSIDE RECORDS SUMMARY | 2024-08-27 10:14 | XMS_ITS | Encounter Summary ---
Author Organization [facility] Address [address] [place] [address] Care Team Providers Care Tinter Photograph Name Role Phone Christiano Peguero MD Primary Care Provider [phone] Christiano Peguero MD Unavailable Encounter Details Date Type Department Care Team (Late st Contact Info) Description 03/06/2023 Clinisync Result Encounter NOMS External Department Unsolicited Christiano Peguero MD [address] [facility] 110 [place] [address] Social History Tobacco Use Types [...] EST Narrative 03/07/2023 7:16 AM EST The [address] [address] Cardiac Rehab Report Signed Patient: OLAF BRIONES MR#: [id number] : 1945 Acct:[id number] Age/Sex: 77 / M ADM Date: 03/06/23 Loc: CR Attending Dr: NAHOMI BUENO Ordering Physician: CHRISTIANO PEGUERO Date of Service: 03/06/23 Procedure(s): ITP Accession Number(s): [id number] cc: The [facility] Test Date: 2023-03-06 Pat Name: OLAF BRIONES Department: Room: - Gender: Male 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 Signed By:03/07/23 0716 03/07/23 0716 DD/ 1325 TD/TT: Meter Tester: Christiano Peguero MD [facility] Final Result documented in this encounter Visit Diagnoses Not on filedocumented in this encounter Care Teams Tinter Photograph Relationship Specialty Start Date End Date Christiano Peguero MD [address] [place] [address] PCP - General Family Medicine 10/09/22 Christiano Peguero MD [address] [place] [address] PCP - [facility] 05/20/23 06/17/65 documented as of this encounter
--- OUTSIDE RECORDS SUMMARY | 2024-08-27 10:14 | XMS_ITS | Encounter Summary ---
Author Organization [facility] Address [address] [place] [address] Care Team Providers Care Director Food Safety Name Role Phone Christiano Coppola MD Primary Care Provider [phone] Christiano Coppola MD Unavailable Encounter Details Date Type Department Care Team (Late st Contact Info) Description 06/27/2023 Abstract [facility] [address] [facility] 110 [place] [phone] Christiano Coppola MD 112 [facility] 110 [place] [address] Social History Tobacco Use Types Packs/Day Years [...] documented as of this encounter Care Teams Director Food Safety Relationship Specialty Start Date End Date Christiano Coppola MD [address] [facility] 110 [place] [address] PCP - General Family Medicine 10/09/22 Christiano Coppola MD [address] [facility] 110 [place] [address] PCP - [facility] 05/20/23 06/17/65 documented as of this encounter
--- OUTSIDE RECORDS SUMMARY | 2024-08-27 10:14 | XMS_ITS | Encounter Summary ---
Author Organization [facility] Address [address] [place] [address] Care Team Providers Care Ballet Dancer Name Role Phone Christiano Coppola MD Primary Care Provider [phone] Christiano Coppola MD Unavailable Encounter Details Date Type Department Care Team (Late st Contact Info) Description 02/13/2023 Abstract [facility] [address] [facility] 110 [place] [phone] Christiano Coppola MD [address] [facility] [address] [place] [address] Social History Tobacco Use Types Packs/Day Years [...] on filedocumented in this encounter Care Teams Ballet Dancer Relationship Specialty Start Date End Date Christiano Coppola MD [address] [facility] [address] [place] [address] PCP - General Family Medicine 10/09/22 Christiano Coppoal MD [address] [facility] [address] [place] [address] PCP - [facility] 05/20/23 06/17/65 documented as of this encounter
--- OUTSIDE RECORDS SUMMARY | 2024-08-27 10:14 | XMS_ITS | Encounter Summary ---
Author Organization [facility] Address [address] [place] [address] Care Team Providers Care Straddle Truck Driver Name Role Phone Christiano Coppola MD Primary Care Provider [phone] Christiano Coppola MD Unavailable Encounter Details Date Type Department Care Team (Late st Contact Info) Description 12/28/2022 Orders Only [facility] [address] [facility] 110 [place] [phone] A, Unknown Practice [address] [place], [place] [id number] Social History Tobacco Use Types Packs/Day Years [...] on filedocumented in this encounter Care Teams Straddle Truck Driver Relationship Specialty Start Date End Date Christiano Coppola MD [address] [facility] 110 [place] [address] PCP - General Family Medicine 10/09/22 Christiano Coppola MD [address] [facility] 110 [place], [place] [id number] [facility] 05/20/23 06/17/65 documented as of this encounter
--- OUTSIDE RECORDS SUMMARY | 2024-08-27 10:14 | XMS_ITS | Encounter Summary ---
Author Organization [facility] Address [address] [facility] [place] [address] Care Team Providers Care Snow Ranger Name Role Phone Christiano Coppola MD Primary Care Provider [phone] Christiano Coppola MD Unavailable Encounter Details Date Type Department Care Team (Late st Contact Info) Description 10/09/2022 Abstract [facility] [address] [facility] 110 [place] [phone] Christiano Coppola MD [address] [facility] 110 [place] [address] Social History Tobacco Use Types Packs/Day Years [...] on filedocumented in this encounter Care Teams Snow Ranger Relationship Specialty Start Date End Date Christiano Coppola MD [address] [facility] 110 [place] [address] PCP - General Family Medicine 10/09/22 Christiano Coppola MD [address] [facility] [address] [place] [address] PCP - [facility] 05/20/23 06/17/65 documented as of this encounter
--- NOTE | 2024-08-27 10:29 | PM.CN ---
Consult Note: HPI Data of Consult Patient: known to practice within the last 3 years Requesting Physician: Ria Kirby NP Primary Care Provider: DAV PEGUERO Consult Narrative Reason for consult: low back and BLE pain Narrative: Thomas Thorne a pleasant 79 year old male presents for evaluation of moderate to severe low back and BLE pain, hx of severe stenosis and degenerative changes. recently underwent bilateral L4/5 TFESI with 80% improvement ongoing. declined to schedule NS consult as pain is well controlled. cc:: CC: Ria Kirby NP Review of Systems ROS Status of ROS 10 or more systems reviewed and unremarkable except as noted in history and below Genitourinary Denies: painful urination, urinary frequency, urinary urgency or difficulty urinating Musculoskeletal Denies: back pain or joint pain PFSH PFSH Medical History Enlarged prostate ?N40.0 - Benign prostatic hyperplasia without lower urinary tract symptoms (ICD-10) Low back pain ?M54.50 - Low back pain, unspecified (ICD-10) Hypertension ?I10 - Essential (primary) hypertension (ICD-10) Kidney stone Surgical History History of transurethral resection of prostate ?Z98.890 - Other specified postprocedural states (ICD-10) ?Z90.79 - Acquired absence of other genital organ(s) (ICD-10) Meds Home Medications and Allergies Home Medications ?Medication ?Instructions ?Recorded ?Confirmed ?Type allopurinol 300 mg tablet 300 mg PO DAILY 01/23/23 08/17/24 History amlodipine 5 mg tablet 5 mg PO DAILY 01/23/23 08/17/24 History aspirin 81 mg tablet,delayed 81 mg PO DAILY 01/23/23 08/17/24 History release atorvastatin 80 mg tablet 40 mg PO DAILY 01/23/23 08/17/24 History carvedilol 6.25 mg tablet 6.25 mg PO Q12H 01/23/23 08/17/24 History lisinopril 2.5 mg tablet 2.5 mg PO DAILY 01/23/23 08/17/24 History nitroglycerin 0.4 mg sublingual 0.4 mg sublingual Q5M PRN chest 01/23/23 08/17/24 History tablet pain Allergies Allergy/AdvReac Type Severity Reaction Status Date / Time amoxicillin Allergy Unknown Rash Verified 08/17/24 09:51 albuterol Allergy Headache Verified 08/17/24 09:51 hydrochlorothiazide Allergy Rash Verified 08/17/24 09:51 Exam Constitutional Documenting provider has reviewed patient's vital signs: yes Common normals: no apparent distress, oriented x3, healthy appearing, alert and well nourished General appearance: cooperative HENMT Common normals: normocephalic, hearing grossly normal bilaterally and moist oral mucous membranes Head and scalp: normocephalic Eye Common normals: PERRL Pupil: PERRL Neck & C-Spine Common normals: full ROM General: normal visual inspection Chest Common normals: inspection of chest normal Respiratory Common normals: normal respiratory effort, no retractions and no use of accessory muscles Back & Pelvis Lumbar spine/lower back: lumbar ROM normal and straight leg raise negative bilaterally; ROM not limited and no pain with ROM Sacroiliac joints: SI joints normal Other: strength 5/5 in BLE sensation intact BLE Extremity Common normals: normal to inspection and full ROM Other: negative internal/external rotation of bilateral hips Neuro Common normals: oriented x3 Sensorium/orientation: alert Psych Common normals: mental status grossly normal, thought process normal, cooperative, affect normal, speech normal and activity/motor behavior normal Speech: normal speech Thought process: normal thought process Results Imaging Lumbar MRI: Attestation: I have reviewed the pertinent imaging results. Radiologist's impression: There is continued slight anterolisthesis of L4 and L5. Heterogeneous bone marrow is again noted. There are no acute compression fractures or marrow edema. The conus medullaris is within normal limits for caliber, position and signal intensity. Bilateral renal cysts are seen. There are no other paraspinal soft tissue abnormalities. At T12-L1, there is no disc disease or stenosis. At L1-2, there is slight loss of disc height. Mild annular disc bulging is again visualized greater extending laterally. Mild thecal sac effacement is present. Moderate bilateral foraminal encroachment is noted. At L2-3, the disc is within normal limits for height. Annular disc bulging is again visualized. There is minor facet and ligamentous hypertrophy. There is mild to moderate thecal sac effacement and bilateral foraminal encroachment. At L3-4, the disc is within normal limits for height. There is annular disc bulging with extension laterally on both sides. There is facet and ligamentous hypertrophy with severe central stenosis similar to the prior. There is moderate foraminal encroachment on the right and mild to moderate on the left. At L4-5, there is annular disc bulging. There is facet and ligamentous hypertrophy with severe central stenosis and near complete effacement of the thecal sac. There is at least moderate narrowing of the neural foramen on both sides, greater on the left. At the lumbosacral junction no significant disc bulge or herniation is present. There is mild facet disease. No stenosis is identified. Additional Findings Additional findings: If on a controlled substance or opioids, I have checked an [place] report on this patient and there are no aberrancies noted in the prescribing history.??If on a controlled substance or opioid a drug screen was completed and reviewed within the last year, and if there has not been a drug screen completed we ordered one today to monitor higher risk, state monitored pain medication use. As part of providing excellent, safe, comprehensive care, the following was completed at our patient's visit: 1. A medication reconciliation and review to ensure accurate knowledge of current/active medications, including asking our patients to inform us about any [id number] medications or herbal remedies/nutritional supplements/alternative remedies. 2. A review to specifically ensure our patients have had annual screening for screening for depression, screening for tobacco use, and screening for unhealthy alcohol use. For concerning screenings had a discussion with the patient, provided patient education, and recommended follow-up with primary care provider when appropriate. If patient noted with a risk of falling, they received education on strength, gait, and balance training to prevent future risk of falling. Portions of this note may have been carried over from the previous visit and updated as appropriate. Please note this office utilizes paper charting in addition to the electronic medical record. A list of current medications, vitals, and PMH is available there as the clinical staff outside of myself do not have access to [email or web address] charting during the clinic day operations. As part of providing quality comprehensive care the current medications, vitals, and PMH were reviewed in the paper chart. Assessment and Plan Assessment and Plan (1) Lumbar stenosis with neurogenic claudication: Assessment and Plan: The patient has had over 3 months of moderate to severe low back and BLE pain with functional impairment and inadequate response to conservative care including NSAIDS (unless there are contraindication such as concurrent blood thinners), multiple oral or topical pain medications, and home exercise program/physical therapy.? Patient has completed >6 weeks of guided home exercise program and/or formal physical therapy program without relief of their symptoms.? The Oswestry Disability Index was completed, and the patient scored a 18%.? ? Plan continue HEP as tolerated continue prn tylenol pain well controlled at this time /10 increasing to 2/10 fu 3 months, sooner if needed
== END 2024-08-27 10:11 | disposition home or self-care (01) ==
LOC: PM 10:10
PROVIDERS: PCP Family Medicine; Visit Provider Nurse Practitioner
DX: M48.062 Spinal stenosis, lumbar region with neurogenic claudication (principal)
CPT/HCPCS: G0463

== ENCOUNTER 2024-11-26 10:34 | Outpatient (OUT) | payer MEDICARE, SELFPAY ==
--- OUTSIDE RECORDS SUMMARY | 2024-11-26 10:51 | XMS_ITS | CCD ---
Author Organization [facility] Care Team Providers Care Chainman Name Role Phone Jame Barraza Unavailable Unavailable Unavailable JAME BARRAZA Primary Care Physician DR SHANNA VIORY Attending Unavailable CHRISTI, DR JAME Bowers Primary Care Unavailable CACHORRO, DR OTERO Admitting Unavailable DR SHANNA IVORY Consulting Unavailable GUAYANILLA, DR AMNA Saucedo Consulting Unavailable DOMINGUEZ GUTIERREZ Admitting Unavailable DOMINGUEZ GUTIERREZ Attending Unavailable DR JAME BARRAZA Primary Care Unavailable NON STAFF Primary Care Provider Unavailsigrid Cochran DO [facility] Emergency Provider DO Steven Zamora Attending Provider [phone] NON STAFF Primary Care Provider Unavailsigrid Cochran DO [facility] Emergency Provider [phone] DO Steven Zamora Admit Provider [phone] DO Steven Zamora Attending Provider [phone] MD Juanito Barney Other Provider [phone] JAME BARRAZA Primary Care Physician Jame Barraza MD Primary Care Provider Nahomi Hernandez Unavailable DAVID ANDREWS Attending Unavailable DAVID ANDREWS Admitting Unavailable Dr. Jame Barraza Primary Care Rodrigo Cabral, Dr. Canada Attending Unavaila ashley Ling, Dr. Canada Referring Unavaila ashley Barraza, Dr. Jame Fountain Primary Care Unavailab Curtis, Dr. Nahomi Guerrero Primary Care Unavailab alda Ling, Dr. Canada Attending Unavaila ashley Ling, Dr. Mourhaf Referring Unavaila ashley Zamora, Dr. Ben Wilson Attending Kushal Hernandez, Dr. Nahomi Guerrero Primary Care Unavailab alda Barraza, Dr. Jame Fountain Primary Care Unavailab alda Barraza, Dr. Jame Fountain Primary Care Unavailab Estella Garcia Unavailable Ashutosh Ling MD Unavailable Sudhir HAHN, Dav Ng Primary Care Provider Dav Peguero MD Primary Care Provider DAV PEGUERO Primary Care Physician Dav Peguero MD Primary Care Provider [phone] Dav Peguero MD Unavailable ASHUTOSH LING Attending Unavailable ASHUTOSH LING Referring Unavailable DAV PEGUERO Primary Care Unavailable Shanna IVORY Attending Unavailable Shanna IVORY Attending Unavailable Shanna IVORY Attending Unavailable DAV PEGUERO Attending Unavailable DAV PEGUERO Attending Unavailable LUCINDA VICKERS Attending Unavailable Dav Peguero Primary Care Unavailable Benigno Harper Attending Benigno Nye Admitting Dav Carbajal MD Primary Care Provider Benigno Harper MD Attending Provider Rachna HAHN, Alonzo Bobo Attending Unavailable Allergies Allergy Classification Reported Allergen(s) Allergy Type Date of Onset Reaction(s) Facility (20 sources) Albuterol; Translations: [albuterol] Drug Allergy 11-12-19 12 Headache (finding), Other: See Comments, Headache [facility] (20 sources) hydroCHLOROthiazide; Translations: [hydroCHLOROthiazide TABS] Drug Allergy 08-21-19 23 Eruption of skin (disorder), Rash [facility] (6 sources) Sulfamethoxazole / Trimethoprim; Translations: [sulfamethoxazole-trim ethoprim] Drug Allergy Unknown (qualifier value) [facility] (1 source) Albuterol Drug Allergy [facility] (9 sources) hydroCHLOROthiazide; Translations: [HYDROCHLOROTHIAZIDE] Drug Allergy 08-21-19 [facility] (5 sources) Adhesive Tape; Translations: [adhesive tape] Propensity to adverse reactions 08-22-19 [facility] (5 sources) Amoxicillin; Translations: [amoxicillin] Drug Allergy 06-26-19 Blood in urine (finding) [facility] (5 sources) hydroCHLOROthiazide Drug Allergy 11-01-19 [facility] (1 source) Albuterol Drug Allergy 06-26-19 [facility] (1 source) Amoxicillin Drug Allergy 06-26-19 [facility] (1 source) hydroCHLOROthiazide Drug Allergy 06-26-19 [facility] Medications Current Medications Medication Drug Class(es) Dates Sig (Normalized) Sig (Original) Albuterol (1 source) beta2-Adrenergic Agonist Albuterol Active allopurinol 300 mg oral tablet (20 sources) Xanthine Oxidase Inhibitor Start: 10-02-2018 take 1 tablet by mouth once daily Allopurinol 300 mg Tablet Active 300 MG PO Daily August 20, 2022 12:00am Comment on above: Take 300 mg by mouth once daily. amLODIPine 5 mg oral tablet (20 sources) Dihydropyridine Calcium Channel Reynaldo Start: 10-24-2018 take 1 tablet by mouth once daily Amlodipine 5 mg Tablet Active 5 MG PO Daily August 20, 2022 12:00am Comment on above: Take 5 mg by mouth o nce daily. aspirin 81 mg delayed release oral tablet (20 sources) Platelet Aggregation Inhibitor, Nonsteroidal Anti-inflammatory Drug [...] take 1 tablet by mouth once daily [facility] Aspirin Low Dose 81 MG EC tablet TAKE 1 TABLET BY MOUTH EVERY DAY FOR 14 DAYS 08/22/2022 Active take 1 tablet by mouth once edelmira y Aspirin 81 81 MG 1 tablet Orally Once a day Active Comment on above: Take 81 mg by mouth once daily. atorvastatin 40 mg oral tablet (20 sources) HMG-CoA Reductase Inhibitor Start: take 1 tablet by mouth once daily at bedtime Atorvastatin 40 mg tablet Active 40 MG PO Daily at bedtime June 25, 2024 12:00am Start: 11-29-2023 take 1 tablet by rk th once daily atorvastatin 40 mg Tab 40 mg = 1 tab(s), Oral, Daily, Refills(s) 0 Start Date: 11/29/23 Status: Ordered Start: 08-22-2022 End: 06-25-2024 take 1 tablet by mouth in the morning atorvastatin (Lipitor) 80 MG tablet Take 80 mg by mouth in the morning. 09/08/2022 Active carvedilol 3.125 mg oral tablet (20 sources) alpha-Adrenergic Reynaldo, beta-Adrenergic Reynaldo Start: 06-26-2023 End: 06-25-2024 take 1 tablet by mouth twice daily at mealtime Carvedilol 3.125 mg tablet Active 3.125 MG PO Twice daily June 25, 2024 12:00am must administer with a meal/food Start: 08-22-2022 End: 06-25-2024 take 1 tablet by mouth twice daily at mealtime Carvedilol 6.25 mg Tablet Discontinued 6.25 MG PO Twice daily with meals August 22, 2022 12:00am June 25, 2024 2:02pm Comment on above: Take 6.25 mg by mout h twice daily with meals. citalopram 10 mg oral tablet (10 sources) Serotonin Reuptake Inhibitor Start: 07-20-2024 take 1 tablet by mouth once daily citalopram (CeleXA) 10 MG tablet Indications: Current mild episode of major depressive disorder without prior episode TAKE 1 TABLET (10 MG) BY MOUTH DAILY. 90 tablet 3 07/20/2024 Active Start: 05-05-2024 Citalopram 10 mg tablet Active MG PO May 05, 2024 12:00am Start: 06-18-2023 take 1 tablet by rk th once daily citalopram (CeleXA) 10 MG tablet Indications: Current mild episode of major depressive disorder without prior episode (HCC) (CMS/HCC) TAKE 1 TABLET (10 MG) BY MOUTH DAILY. 90 tablet 1 01/06/2024 Active hydroCHLOROthiazide (1 source) Thiazide Diuretic hydroCHLOROthi azide Active lisinopril 5 mg oral tablet (20 sources) Angiotensin Converting Enzyme Inhibitor Start: 2024 take 1 tablet by mouth once daily Lisinopril 5 mg tablet Active 5 MG PO Daily 90 90 June 25, 2024 12:00am Start: 08-22-2022 End: 06-25-2024 take 1 tablet by mouth once daily Lisinopril 2.5 mg Tablet Discontinued 2.5 MG PO Daily 14 August 22, 2022 12:00am June 25, 2024 3:07pm End: 06-26-2023 take 1 tablet by mouth [...] once daily. nitroglycerin 0.4 mg sublingual tablet (20 sources) Nitrate Vasodilator Start: 11-26-2022 nitroglycerin 0.4 mg sublingual Tab Refills(s) 0 Start Date: 11/26/22 Status: Ordered Start: 08-22-2022 nitroglycerin (Nitrostat) 0.[address] 0.4 mg under the tongue. 08/22/2022 Active Nitroglycerin 0. 4 MG as directed Sublingual Active Comment on above: Dissolve 0.4 mg unde r the tongue every 5 minutes as needed for chest pain. ticagrelor 90 mg oral tablet (19 sources) Start: 08-22-2022 End: 05-05-2024 take 1 tablet by mouth in the morning ticagrelor (Brilinta) 90 MG tablet Take 90 mg by mouth in the morning and 90 mg in the evening. 08/22/2022 Active Brilinta 90mg Ta kke as directed Active Comment on above: Take 90 mg by mouth twice daily. Completed/Discontinued Medications Medication Drug Class(es) Dates Sig (Normalized) Sig (Original) cholecalciferol 0.125 mg oral capsule (6 sources) Vitamin D Vitamin D 125 MC G (5000 UT) CAPS TAKE 1 CAPSULE Daily Quantity: 0 Refills: 0 Ordered: 24-Nov-2020 DO Active clopidogrel 75 mg oral tablet (10 sources) P2Y12 Platelet Inhibitor Start: 06-26-2023 End: 06-25-2024 take 1 tablet by mouth once daily Clopidogrel (Plavix) 75 mg tablet Discontinued 75 MG PO Daily May 05, 2024 12:00am June 25, 2024 3:08pm diclofenac sodium 75 mg delayed release oral tablet (20 sources) Nonsteroidal Anti-inflammatory Drug Start: 09-10-2016 End: 06-25-2024 take 1 tablet by mouth twice daily Diclofenac Sodium 75 mg Tablet,Delayed Release (Dr/Ec) Discontinued 75 MG PO Twice daily August 20, 2022 12:00am June 25, 2024 2:02pm End: 01-09-2023 take 2 tablets by mouth [...] daily. metoprolol tartrate 25 mg oral tablet (13 sources) beta-Adrenergic Reynaldo Start: 08-20-2022 End: 08-22-2022 take 1 tablet by mouth once daily Metoprolol Tartrate 25 mg Tablet Discontinued 25 MG PO Daily August 20, 2022 12:00am August 22, 2022 3:22pm Start: 10-21-2020 take 1 tablet by rk once daily metoprolol 25 mg ER Tab 25 mg = 1 tab(s), Oral, Daily, Refills(s) 0 Start Date: 10/21/20 Status: Ordered Multi Vitamin Oral Tablet (6 sources) take 1 tablet by mouth once daily Multi Vitamin Oral Tablet TAKE 1 TABLET DAILY. Quantity: 0 Refills: 0 Ordered: 24-Nov-2020 DO Active rosuvastatin calcium 20 mg oral tablet (13 sources) HMG-CoA Reductase Inhibitor Start: End: take 1 tablet by mouth once daily Rosuvastatin 20 mg Tablet Discontinued 20 MG PO Daily August 20, [...] 3 Ordered: 01-Jun-2022 Ashutosh Ling MD Active trospium chloride 20 mg oral tablet (2 sources) Cholinergic Muscarinic Antagonist Start: 08-30-2022 take 1 tablet by mouth twice daily trospium (SANCTURA) 20 mg tablet Take 1 tablet by mouth twice daily for hernandez discomfort. Stop taking 48 hours before hernandez removal. 30 tablet 1 08/30/2022 Active Comment on above: Take 1 tablet by mouth twice daily for f oley discomfort. Stop taking 48 hours before hernandez removal. Zinc (6 sources) Zinc 15 MG TABS Take 1 tablet daily Quantity: 0 Refills: 0 Ordered: 24-Nov-2020 DO Active Problems Active Problems Problem Classification Problem Date Documented Date Episodic/Chronic Acute myocardial infarction (15 sources) Myocardial infarction; Translations: [ST elevation (STEMI) myocardial infarction of unspecified site] Onset: 08-27-2022 08-20-2022 Chronic Conditions associated with dizziness or vertigo (7 sources) Dizziness; Translations: [Dizziness and giddiness] Episodic Conduction disorders (7 sources) Heart block ; Translations: [Conduction disorder, unspecified] 08-20-2022 Chronic Coronary atherosclerosis and other heart disease (20 sources) Coronary arteriosclerosis; Translations: [Atherosclerotic heart disease of [place] coronary artery without angina pectoris] Onset: 08-27-2022 08-28-2022 Chronic Diabetes mellitus without complication (12 sources) Diabetes mellitus; Translations: [Type 2 diabetes mellitus without complication] Onset: 08-27-2022 10-24-2018 Chronic Diseases of white blood cells (7 sources) Leukocytosis; Translations: [Elevated white blood cell count, unspecified] Onset: 08-27-2022 08-27-2022 Chronic Disorders of lipid metabolism (20 sources) Hyperlipidemia; Translations: [Other and unspecified hyperlipidemia] Onset: 01-08-2023 01-09-2023 Chronic Essential hypertension (20 sources) Hypertensive disorder; Translations: [Unspecified essential hypertension] Onset: 08-27-2022 Resolved: 01-09-2023 10-24-2018 Chronic Gout and other crystal arthropathies (5 sources) Gout; Translations: [Gout, unspecified] Onset: 11-05-2022 11-05-2022 Chronic Hyperplasia of prostate (13 sources) Benign prostatic hypertrophy with outflow obstruction; Translations: [Benign prostatic hyperplasia with lower urinary tract symptoms] Onset: 10-27-2021 Chronic Immunizations and screening for infectious disease (1 source) Patient encounter status; Translations: [Other specified vaccination] Episodic Inflammatory conditions of male genital organs (5 sources) Prostatitis 10-24-2018 Episodic Nutritional deficiencies (7 sources) Undernutrition; Translations: [Mild protein-calorie malnutrition] Onset: 08-29-2022 08-29-2022 Chronic Other aftercare (2 sources) Long-term current use of anticoagulant; Translations: [assisted (current) use of anticoagulants] Onset: 11-29-2023 Episodic Other diseases of kidney and ureters (1 source) Urinary tract obstruction; Translations: [Other obstructive and reflux uropathy] Onset: 08-26-2022 Episodic Other ear and sense organ disorders (3 sources) Impacted cerumen, bilateral; Translations: [Impacted cerumen] Episodic Other male genital disorders (4 sources) Male erectile dysfunction, unspecified; Translations: [Erectile dysfunction] Onset: 11-29-2023 Chronic Other nutritional; endocrine; and metabolic disorders (4 sources) Body mass index 25-29 - overweight; Translations: [Body Mass Index 28.0-28.9, adult] Episodic Peripheral and visceral atherosclerosis (6 sources) Atherosclerosis of aorta; Translations: [Atherosclerosis of aorta] Onset: 05-21-2023 05-21-2023 Chronic Screening and history of mental health and substance abuse codes (11 sources) Ex-smoker; Translations: [Personal history of tobacco use] Episodic Comment on above: former cigar smoker; Syncope (5 sources) Syncope; Translations: [Syncope and collapse] 08-20-2022 Episodic Unclassified (5 sources) Asymptomatic microscopic hematuria 10-27-2021 Unclassified (2 sources) Drug therapy finding 11-29-2023 Urinary tract infections (1 source) Urinary tract infectious disease; Translations: [Urinary tract infection, site not specified] Onset: 08-26-2022 Episodic Past or Other Problems Problem Classification Problem Date Documented Da te Episodic/Chronic Calculus of urinary tract (17 sources) Kidney stone; Translations: [Calculus of kidney] Onset: 10-26-2021 Episodic Coagulation and hemorrhagic disorders (10 sources) Easy bruising; Translations: [Spontaneous ecchymoses] Onset: 01-09-2023 01-09-2023 Episodic Coronary atherosclerosis and other heart disease (19 sources) Patient post percutaneous transluminal coronary angioplasty; Translations: [Percutaneous transluminal coronary angioplasty status] Onset: 01-08-2023 01-09-2023 Episodic E Codes: Adverse effects of medical drugs (7 sources) Adverse effect of anticoagulant antagonists, vitamin K and other coagulants, initial encounter; Translations: [Anticoagulants causing adverse effects in therapeutic use] Onset: 08-27-2022 08-27-2022 Episodic Genitourinary symptoms and ill-defined conditions (20 sources) Microscopic hematuria; Translations: [Asymptomatic microscopic hematuria] Onset: 10-27-2021 Episodic Mood disorders (5 sources) Mood disorders Onset: 06-18-2023 06-18-2023 Other lower respiratory disease (5 sources) Dyspnea on exertion; Translations: [Other forms of dyspnea] Onset: 05-21-2023 05-21-2023 Episodic Other nutritional; endocrine; and metabolic disorders (20 sources) Overweight in adulthood with body mass [...] of cardiovascular system] Onset: 01-08-2023 01-09-2023 Episodic Residual codes; unclassified (8 sources) Never smoked tobacco; Translations: [Other specified health status] Onset: 06-26-2023 06-26-2023 Episodic Residual codes; unclassified (2 sources) Other specified health status; Translations: [Other specified health status] Onset: 06-26-2023 Episodic Spondylosis; intervertebral disc disorders; other back problems (5 sources) Sciatica; Translations: [Sciatica, unspecified side] Onset: 04-02-2024 04-02-2024 Episodic Unclassified (3 sources) Onset: 01-09-2023 Resolved: 03-13-2024 01-09-2023 Results Test Name Value Interpretation Reference Range Facility [place] [address] Magnetic Resonance Report Signed Patient: OLAF BRIONES MR#: [id number] : 1945 Acct:[id number] Age/Sex: 79 / M ADM Date: 07/31/24 Loc: MRI Attending Dr: David Kirby NP Ordering Physician: David Kirby NP Date of Service: 07/31/24 Procedure(s): MR lumbar spine wo con Accession Number(s): [id number] cc: DAV PEGUERO ; David Kirby NP [place] [id number] Patient Name: OLAF BRIONES MRN: [id number] date: 1945 Sex: M Assigned Patient Location: MRI Current Patient Location: MRI Accession/Order Number: [id number] Exam Date: 07/31/2024 11:52 Report Date: 07/31/2024 12:07 At the request of: DAVID KIRBY NP Procedure: MR lumbar spine wo con [...] Monreal M.D. 07/31/2024 12:07 PM Dictation Location: [place] [address] Electronically authenticated by: [id number] Y Date: 07/31/2024 12:07 Dictated By: Lucinda Monreal M.D. Signed By: 07/31/24 1210 DD/ 1207 TD/TT: Rubber Thread Spooler: [facility] Radiology, Radiologi MD yo - 07/31/2024 [place] [address] Magnetic Resonance Report Signed Patient: OLAF BRIONES MR#: [id number] : 1945 Acct:[id number] Age/Sex: 79 / M ADM Date: 07/31/24 Loc: MRI Attending Dr: David Kirby NP Ordering Physician: David Kirby NP Date of Service: 07/31/24 Procedure(s): MR lumbar spine wo con Accession Number(s): [id number] cc: DAV PEGUERO ; David Kirby NP [address] [address] Patient Name: OLAF BRIONES MRN: [facility]:[id number] date: 1945 Sex: M Assigned Patient Location: MRI Current Patient Location: MRI Accession/Order Number: [id number] Exam Date: 07/31/2024 11:52 Report Date: 07/31/2024 12:07 At the request of: DAVID KIRBY NP Procedure: MR lumbar spine wo con [...] Monreal M.D. 07/31/2024 12:07 PM Dictation Location: [place] [address] Electronically authenticated by: [id number] Y Date: 07/31/2024 12:07 Dictated By: Lucinda Monreal M.D. Signed By: 07/31/24 1210 DD/ 1207 TD/TT: Rubber Thread Spooler: [facility] Radiology Study observation (narrative) [facility] MR LUMBAR SPINE WO CONOrdere d By: Radiologist Radiology on 07-31-2024 [facility] Smartsheet Work Phone: [facility] ECG *CARDIOLOGY ONLY*on 06-25-2024 [facility] ECG *CARDIOLOGY ONLY* [facility] [address] [place] [address] [place] [address] Electrocardiograph Report Signed Patient: Olaf Briones MR#: [id number] 2 : 1945 Acct:[id number] Age/Sex: 79 / M ADM Date: 06/25/24 Loc: [facility] Room: Type: [facility] Attending Dr: Benigno Harper MD Ordering Provider: Benigno Harper MD Date of Service: 06/25/2410/13/1351 ECG/FPG ECG *CARDIOLOGY ONLY*: I25.10 - Atherosclerotic heart disease of [place] coronary... Copies to: Test Reason : Blood Pressure : */* mmHG Vent. Rate : 62 BPM Atrial Rate : 62 BPM P-R Int : 198 ms QRS Dur : 104 ms QT Int : 438 ms P-R-T Axes : 32 -16 3 degrees QTcB Int : 444 ms Sinus rhythm with premature atrial complexes Septal infarct , age undetermined Abnormal ECG When compared with ECG of 22-Aug-2022 07:45, T wave inversion less evident in Inferior leads T wave inversion no longer evident in Lateral leads Confirmed by Benigno Harper ([id number]) on 06/25/2024 6:07:54 PM Referred By: Electronically Signed By: Benigno Harper Transcribed By: MUS Signed By Benigno Harper MD 06/25/24 1807 Normal [facility] ALBUMIN, RANDOM URINE W/CREA Jenny 04-05-2024 ALBUMIN, URINE 0.9 mg/dL Normal See Note: [facility] Comment on above: Result Comment: Marily aranda Range: Reference Range Not established Performed By: #### 7 600, 6517 #### [facility] [address], [address] [place] [address] Outside Salesman: Brennon Zhong MD #### [id number], [id number] #### [facility] [address] [place], [place] [phone] Outside Salesman: Agnes Cervantes ALBUMIN/CREATININE RATIO, RANDOM URINE 8 mg/g creat Normal <30 [facility] Comment on above: Result Comment: The ADA defines abnormalities in albumin excretion as follows: Albuminuria Category Result (mg/g creatinine) Normal to Mildly increased <30 Moderately increased 30-299 Severely increased > OR = 300 The ADA recommends that at least two of three specimens collected within a 3-6 month period be abnormal before considering a patient to be within a diagnostic category. Performed By: #### 7 600, 6517 #### [facility] [address], [address] [place] [address] Outside Salesman: Brennon Zhong MD #### [id number], [id number] #### [facility] [address] [place], [place] [phone] Outside Salesman: Agnes Cervantes Creatinine (U) [Mass/Vol] 117 mg/dL Normal 20-320 [facility] Comment on above: Performed By: #### 7 600, 6517 #### [facility] [address], [address] [place] [address] Outside Salesman: Brennon Zhong MD #### [id number], [id number] #### [facility] [address] [place] [phone] Outside Salesman: Agnes Cervantes CBC (INCLUDES DIFF/PLT)on Basophils (Bld) [#/Vol] 0.021 10*3/uL Normal 0-200 [facility] Comment on above: Performed By: #### 7 600, 6517 #### [facility] [place] [address] [address] , [address] [place] [address] Outside Salesman: Brennon Zhong MD #### [id number], [id number] #### [facility] [address] Outside Salesman: Agnes Cervantes Basophils/100 WBC (Bld) 0.3 % Normal [facility] Comment on above: Performed By: #### 7 600, 6517 #### [facility] [place] [address] [address] , [address] [place] [address] Outside Salesman: Brennon Zhong MD #### [id number], [id number] #### [facility] [address] Outside Salesman: Agnes Cervantes Eosinophils (Bld) [#/Vol] 0.099 10*3/uL Normal 15-500 [facility] Comment on above: Performed By: #### 7 600, 6517 #### [facility] [place] [address] [address] , [address] [place] [address] Outside Salesman: Brennon Zhong MD #### [id number], [id number] #### [facility] [address] Outside Salesman: Agnes Cervantes Eosinophils/100 WBC (Bld) 1.4 % Normal [facility] Comment on above: Performed By: #### 7 600, 6517 #### [facility] [place] [address] [address] , [address] [place] [address] Outside Salesman: Brennon Zhong MD #### [id number], [id number] #### [facility] [address] Outside Salesman: Agnes Cervantes Erythrocyte distribution width (RBC) [Ratio] 13.6 % Normal 11.0-15.0 [facility] Comment on above: Performed By: #### 7 600, 6517 #### [facility] [place] [address] [address] , [address] [place] [address] Outside Salesman: Brennon Zhong MD #### [id number], [id number] #### [facility] [address] Outside Salesman: Agnes Cervantes Hematocrit (Bld) [Volume fraction] 43.9 % Normal 38.5-50.0 [facility] Comment on above: Performed By: #### 7 600, 6517 #### [facility] [place] [address], [address] [place] [address] Outside Salesman: Brennon Zhong MD #### [id number], [id number] #### [facility] [address] Outside Salesman: Agnes Cervantes Hemoglobin (Bld) [Mass/Vol] 14.9 g/dL Normal 13.2-17.1 [facility] Comment on above: Performed By: #### 7 600, 6517 #### [facility] [place] [address], [address] [place] [address] Outside Salesman: Brennon Zhong MD #### [id number], [id number] #### [facility] [address] Outside Salesman: Agnes Cervantes Lymphocytes (Bld) [#/Vol] 1.761 10*3/uL Normal 850-3900 [facility] Comment on above: Performed By: #### 7 600, 6517 #### [facility] [address], [address] [place] [address] Outside Salesman: Brennon Zhong MD #### [id number], [id number] #### [facility] [address] [place] [address] Outside Salesman: Agnes Cervantes Lymphocytes/100 WBC (Bld) 24.8 % Normal [facility] Comment on above: Performed By: #### 7 600, 6517 #### [facility] [address], [address] [place] [address] Outside Salesman: Brennon Zhong MD #### [id number], [id number] #### [facility] [address] [place], [place] [id number] Outside Salesman: Agnes Cervantes MCH (RBC) [Entitic mass] 31.7 pg Normal 27.0-33.0 [facility] Comment on above: Performed By: #### 7 600, 6517 #### [facility] [address] [address], [address] [place] [address] Outside Salesman: Brennon Zhong MD #### [id number], [id number] #### [facility] [address] [place] [address] Outside Salesman: Agnes Cervantes MCHC (RBC) [Mass/Vol] 33.9 g/dL Normal 32.0-36.[address] [facility] Comment on above: Result Comment: For adults, a slight decrease in the calculated MCHC value (in the range of 30 to 32 g/dL) is most likely not clinically significant; however, it should be interpreted with caution in correlation with other red cell parameters and the patient's clinical condition. Performed By: #### 7 600, 6517 #### [facility] [address], [address] [place] [address] Outside Salesman: Brennon Zhong MD #### [id number], [id number] #### [facility] [address] Outside Salesman: Agnes Cervantes MCV (RBC) [Entitic vol] 93.4 fL Normal 80.0-100.0 Q uest Diagnostics Comment on above: Performed By: #### 7 600, 6517 #### [facility] [address], [address] [place] [address] Outside Salesman: Brennon Zhong MD #### [id number], [id number] #### [facility] [address] [place] [address] Outside Salesman: Agnes Cervantes Monocytes (Bld) [#/Vol] 0.568 10*3/uL Normal 200-950 [facility] Comment on above: Performed By: #### 7 600, 6517 #### [facility] [place] [address] [address] , [address] [place] [address] Outside Salesman: Brennon Zhong MD #### [id number], [id number] #### [facility] [address] Outside Salesman: Agnes Cervantes Monocytes/100 WBC (Bld) 8.0 % Normal [facility] Comment on above: Performed By: #### 7 600, 6517 #### [facility] [place] [address], [address] [place] [address] Outside Salesman: Brennon Zhong MD #### [id number], [id number] #### [facility] [address] Outside Salesman: Agnes Cervantes Neutrophils (Bld) [#/Vol] 4.651 10*3/uL Normal 9210-0825 [facility] Comment on above: Performed By: #### 7 600, 6517 #### [facility] [place] [address], [address] [place] [address] Outside Salesman: Brennon Zhong MD #### [id number], [id number] #### [facility] [address] Outside Salesman: Agnes Cervantes Neutrophils/100 WBC (Bld) 65.5 % Normal [facility] Comment on above: Performed By: #### 7 600, 6517 #### [facility] [address], [address] [place] [address] Outside Salesman: Brennon Zhong MD #### [id number], [id number] #### [facility] [address] Outside Salesman: Agnes Cervantes Platelet mean volume (Bld) [Entitic vol] 10.9 fL Normal 7.5-12.5 [facility] Comment on above: Performed By: #### 7 600, 6517 #### [facility] [address], [address] [place] [address] Outside Salesman: Brennon Zhong MD #### [id number], 70320 #### [place] [address] Outside Salesman: Agnes Cervantes Platelets (Bld) [#/Vol] 225 10*3/uL Normal 140-400 [facility] Comment on above: Performed By: #### 7 600, 6517 #### [facility] [place] [address] [facility], [address] [place] [address] Outside Salesman: Brennon Zhong MD #### [id number], 79007 #### [facility] [address] [place] [phone] Outside Salesman: Agnes Cervantes RBC (Bld) [#/Vol] 4.70 10*6/uL Normal 4.20-5.80 [facility] Comment on above: Performed By: #### 7 600, 6517 #### [facility] [address], [address] [place] [address] Outside Salesman: Brennon Zhong MD #### [id number], [id number] #### [facility] Outside Salesman: Agnes Cervantes WBC (Bld) [#/Vol] 7.1 10*3/uL Normal 3.8-10.8 [facility] Comment on above: Performed By: #### 7 600, 6517 #### [facility] [address], [address] [place] [address] Outside Salesman: Brennon Zhong MD #### [id number], 79881 #### [facility] [address] [place] [phone] Outside Salesman: Agnes Cervantes [facility] 04-05-2024 Albumin [Mass/Vol] 4.3 g/dL Normal 3.6-5.1 [facility] Comment on above: Performed By: #### 7 600, 6517 #### [facility] [address], [address] [place] [address] Outside Salesman: Brennon Zhong MD #### [id number], [id number] #### [place] [address] Outside Salesman: Agnes Cervantes Albumin/Globulin [Mass ratio] 1.9 {ratio} Normal 1.0-2.5 [facility] Comment on above: Performed By: #### 7 600, 6517 #### [facility] [address], [address] [place] [address] Outside Salesman: Brennon Zhong MD #### [id number], 60326 #### [place] [address] Outside Salesman: Agnes Cervantes ALP [Catalytic activity/Vol] 141 U/L Normal 35-144 [facility] Comment on above: Performed By: #### 7 600, 6517 #### [facility] [address], [address] [place] [address] Outside Salesman: Brennon Zhong MD #### [id number], 68811 #### [facility] [address] [place] [address] Outside Salesman: Agnes Cervantes ALT [Catalytic activity/Vol] 29 U/L Normal 9-46 [facility] Comment on above: Performed By: #### 7 600, 6517 #### [facility] [address], [address] [place] [address] Outside Salesman: Brennon Zhong MD #### [id number], 25570 #### [facility] [address] [place] [address] Outside Salesman: Agnes Cervantes AST [Catalytic activity/Vol] 22 U/L Normal 10-35 [facility] Comment on above: Performed By: #### 7 600, 6517 #### [facility] [address], [address] [place] [address] Outside Salesman: Brennon Zhong MD #### 6399, 23520 #### [facility] [address] [place] [address] Outside Salesman: Agnes Blantoni Bilirubin [Mass/Vol] 0.7 mg/dL Normal 0.2-1.2 Ques t Diagnostics Comment on above: Performed By: #### 7 600, 6517 #### [facility] [address], [address] [place] [address] Outside Salesman: Brennon Zhong MD #### [id number], 31357 #### [facility] [address] [place] [address] Outside Salesman: Agnes Blantoni BUN/CREATININE RATIO SEE NOTE: Normal 6-22 Ques t [facility] Comment on above: Result Comment: Not Reported: BUN and Creatinine are within reference range. Performed By: #### 7 600, 7717 #### [facility] [address], [address] [place] [address] Outside Salesman: Brennon Zhong MD #### 6399, 11375 #### [facility] [address] [place] [address] Outside Salesman: Agnes Sánchez Flati Calcium [Mass/Vol] 9.3 mg/dL Normal 8.6-10.3 [facility] Comment on above: Performed By: #### 7 600, 6517 #### [facility] [address], [address] [place] [address] Outside Salesman: Brennon Zhong MD #### [id number], 59873 #### [facility] [address] [place] [address] Outside Salesman: Agnes Sánchez Flati Chloride [Moles/Vol] 105 mmol/L Normal 98-110 Ques t [facility] Comment on above: Performed By: #### 7 600, 6517 #### [facility] [address], [address] [place] [address] Outside Salesman: Brennon Zhong MD #### [id number], 86889 #### [facility] [address] [place] [address] Outside Salesman: Agnes R Flati CO2 [Moles/Vol] 29 mmol/L Normal 20-32 [facility] Comment on above: Performed By: #### 7 600, 6517 #### [facility] [address], [address] [place] [address] Outside Salesman: Brennon Zhong MD #### 6399, 75310 #### [facility] [address] [place] [address] Outside Salesman: Agnes Cervantes Creatinine [Mass/Vol] 0.76 mg/dL Normal 0.70-1.[address] [facility] Comment on above: Performed By: #### 7 600, 6517 #### [facility] [address], [address] [place] [address] Outside Salesman: Brennon Zhong MD #### 6399, 84509 #### [facility] [address] [place] [address] Outside Salesman: Agnes eCrvantes GFR/1.73 sq M.predicted among non-blacks MDRD (S/P/Bld) [Vol rate/Area] 92 mL/min/{1.73_m2} Normal > OR = 60 [facility] Comment on above: Performed By: #### 7 600, 6517 #### [facility] [place] [address] Outside Salesman: Brennon Zhong MD #### 6399, 24421 #### [facility] [address] [place] [address] Outside Salesman: Agnes Cervantes Globulin (S) [Mass/Vol] 2.3 g/dL Normal 1.9-3.7 [facility] Comment on above: Performed By: #### 7 600, 6517 #### [facility] [address], [address] [place] [address] Outside Salesman: Brennon Zhong MD #### 6399, 22929 #### [facility] [phone] Outside Salesman: Agnes Cervantes Glucose [Mass/Vol] 134 mg/dL High 65-99 [facility] Comment on above: Result Comment: Fasting reference interval For someone without known diabetes, a glucose value >125 mg/dL indicates that they may have diabetes and this should be confirmed with a follow-up test. Performed By: #### 7 600, 6517 #### [facility] [address], [address] [place] [address] Outside Salesman: Brennon Zhong MD #### 6399, [id number] #### [facility] [address] [place] [address] Outside Salesman: Agnes Sánchez Flati Potassium [Moles/Vol] 4.5 mmol/L Normal 3.5-5.[address] [facility] [address] [facility] Comment on above: Performed By: #### 7 600, 6517 #### [facility] [address], [address] [place] [address] Outside Salesman: Brennon Zhong MD #### 6399, 90010 #### [facility] [address] [place] [address] Outside Salesman: Agnes Sánchez Flati Protein [Mass/Vol] 6.6 g/dL Normal 6.1-8.1 [facility] Comment on above: Performed By: #### 7 600, 6517 #### [facility] [address], [address] [place] [address] Outside Salesman: Brennon Zhong MD #### 6399, 58702 #### [facility] [address] [place] [address] Outside Salesman: Agnes Sánchez Flati Sodium [Moles/Vol] 141 mmol/L Normal 135-146 [facility] Comment on above: Performed By: #### 7 600, 6517 #### [facility] [address], [address] [place] [address] Outside Salesman: Brennon Zhong MD #### 6399, 59876 #### [facility] [address] Outside Salesman: Agnes Blantoni Urea nitrogen [Mass/Vol] 16 mg/dL Normal 7-25 [facility] Comment on above: Performed By: #### 7 600, 6517 #### [facility] [address], [address] [place] [address] Outside Salesman: Brennon Zhong MD #### 6399, 46552 #### [facility] [address] Outside Salesman: Agnes Cervantes LIPID PANEL, [facility] - Cholesterol [Mass/Vol] 118 mg/dL Normal <200 Qu est Diagnostics Comment on above: Order Comment: FASTI NG:YES FASTING: YES Performed By: #### 7 600, 6517 #### [facility] [address], [address] [place] [address] Outside Salesman: Brennon Zhong MD #### 6399, 19426 #### [facility] [address] Outside Salesman: Agnes Cervantes Cholesterol in HDL [Mass/Vol] 45 mg/dL Normal > OR = 40 [facility] Comment on above: Order Comment: FASTI NG:YES FASTING: YES Performed By: #### 7 600, 6517 #### [facility] [address], [address] [place] [address] Outside Salesman: Brennon Zhong MD #### 6399, 14851 #### [facility] [address] Outside Salesman: Agnes Cervantes Cholesterol in LDL [Mass/Vol] 52 mg/dL Normal [facility] Comment on above: Order Comment: FASTI NG:YES FASTING: YES Result Comment: Refe rence range: <100 Desirable range <100 mg/dL for primary prevention; <70 mg/dL for patients with CHD or diabetic patients with > or = 2 CHD risk factors. LDL-C is now calculated using the Brendon calculation, which is a validated novel method providing better accuracy than the Friedewald equation in the estimation of LDL-C. Suresh RUBIO et al. MICHAEL. 2013;310(19): 5109-3140 (http://education.Inventic.Zweemie/faq/ZDK817) Performed By: #### 7 600, 6517 #### [facility] [address], [address] [place] [address] Outside Salesman: Brennon Zhong MD #### 6399, 84884 #### [facility] [address] [place] [address] Outside Salesman: Agnes Cervantes Cholesterol.total/Reny sterol in HDL [Mass ratio] 2.6 {ratio} Normal <5.0 [facility] Comment on above: Order Comment: FASTI NG:YES FASTING: YES Performed By: #### 7 600, 6517 #### [facility] [address], [address] [place] [address] Outside Salesman: Brennon Zhong MD #### 6399, 62472 #### [facility] [address] Outside Salesman: Agnes Cervantes NON HDL CHOLESTEROL 73 mg/dL (calc) Normal <130 [facility] Comment on above: Order Comment: FASTI NG:YES FASTING: YES Result Comment: For patients with diabetes plus 1 major ASCVD risk factor, treating to a non-HDL-C goal of <100 mg/dL (LDL-C of <70 mg/dL) is considered a therapeutic option. Performed By: #### 7 600, 6517 #### [facility] [address], [address] [place] [address] Outside Salesman: Brennon Zhong MD #### 6399, 54808 #### [facility] [address] [place], [place] [phone] Outside Salesman: Agnes Cervantes Triglyceride [Mass/Vol] 125 mg/dL Normal <150 Q [facility] Comment on above: Order Comment: FASTI NG:YES FASTING: YES Performed By: #### 7 600, 6517 #### [facility] [address], [address] [place] [address] Outside Salesman: Brennon Zhong MD #### 6399, 67945 #### [facility] [address] [place] [address] Outside Salesman: Agnes Cervantes PSA, TOTALon 04-05-2024 PSA, TOTAL 1.60 ng/mL Normal < OR = 4.00 [facility] Comment on above: Result Comment: The total PSA value from this assay system is standardized against the WHO standard. The test result will be approximately 20% lower when compared to the equimolar-standardized total PSA (Shira Gotebo). Comparison of serial PSA results should be interpreted with this fact in mind. This test was performed using the Siemens chemiluminescent method. Values obtained from different assay methods cannot be used interchangeably. PSA levels, regardless of value, should not be interpreted as absolute evidence of the presence or absence of disease. Performed By: #### 7 600, 6517 #### [facility] [address], [address] [place] [address] Outside Salesman: Brennon Zhong MD #### 6399, 45991 #### [facility] [place] [address] Outside Salesman: Agnes Cervantes [facility] - Hematology and Cell countson 04-02-2024 HbA1c (Bld) [Mass fraction] 6.7 % [facility] No Panel Informationon 04-02 Interpretation and review of laboratory results Abnormal [facility] Urology Office/Clinic Noteon 03-27-2024 Urology Office/Clinic Note Urology Office/Clinic Note Chief Complaint kidney stone HPI Staff 78yr old male pt here for 4mo f/u with metabolic workup. S/P TURP 2006, & [facility] Previous Dx: kidney stone, BPH with urinary obstruction, erectile dysfunction, asymptomatic microscopic hematuria, anticoagulated Dysuria: denies Incomplete bladder emptying: denies Hematuria: denies Frequency: denies Urgency: denies Nocturia: 1x Stream: no straining or intermittency Leaking: denies Post void dripping: denies Wearing pads/ Depends: denies Urge incontinence: denies Stress incontinence: denies Incontinence without Sensory Awareness: denies Abdominal pain: denies Flank pain: denies Sexual complaints: denies History of Present Illness Tests reviewed: reviewed met w/up. I have reviewed the previous health record information and history for this patient from Dr. Ivory I have reviewed and verified the staff HPI to be accurate for this encounter. There have been no associated fever, chills, flank pain, or blood in the urine. Denies any urinary infections since last encounter. Review of Systems PHQ Score Initial Depression Screen Score: 3 SCORE ROS - Provider Constitutional: denies weight [...] Physical Exam Vitals & Measurements T: 37 ???C(Temporal Artery) HR: 68(Peripheral) RR: 16 BP: 135/76 HT: 68 in HT: 172 cm WT: 84 kg WT: 185.188 lb BMI: 28.39 General Appearance: alert, no distress, well nourished, well developed male.. Assessment/Plan 1. Kidney stone (N20.0: Calculus of kidney) No metabolic workup since 2019. KUB 10/26/21 - Bilateral stones, L>R. R side obscured. Stone Analysis 08/28/22 - 50% CaOx Hardeman, 40% CaOx Di, and 10% minor components. KUB 11/20/22 - Bilat renal calculi, largest on R measuring up to 5 mm and largest on L measuring up to 3 mm. KUB 11/28/23 [facility] - Numerous tiny stones bilaterally, largest 5 mm L kidney. [facility] All[facility] 300 mg qd[facility]. Denies pain or passage of stones since last visit. Met w/up 12/13/23 - total volume 1300 (low) high urine sodium 113 (30-90) Serum labs 12/13/23 - wnl. Results reviewed with pt. Advised pt that he needs to drastically increase his water intake. Recommended pt to increase fluid intake to ten to twelve 16oz bottles a day; preferably water, clear pop, and sugar free lemonade. Decrease salt intake in diet. -Aim for 2-3 L of water per day -Decrease added salt in diet Follow up in 1 year w/ KUB. 2. BPH with urinary obstruction (N40.1: Benign prostatic hyperplasia with lower urinary tract symptoms) S/p TURP 2006. [1] S/p [facility]URP 08[facility]28/22 [facility]. No urine sample provided. Not taking any prostate or bladder meds. Voiding well. 3. Erectile dysfunction (N52.9: Male erectile dysfunction, unspecified) Shares unable to achieve erection after second TURP, was able to achieve after first TURP. Explained potential cause of this (extensive coagulation from bleeding). 4. Asymptomatic microscopic hematuria (R31.21: Asymptomatic microscopic hematuria) Chronic [1]. Pt unable to provide urine sample today. Denies gross hematuria. 5. Anticoagulated (Z79.01: supervisor intermediates (current) use of anticoagulants) No longer on Brilinta (due to SE of back pain) now on Plavix. Also Aspirin qod. Follow-up With When Contact Information CACHORRO HAHN, Shanna Sánchez, URL [address] [place] [address]- Additional Instructions: 1 year w/ KUB Patient Education Dietary Guidelines to Help Prevent Kidney Stones I, Esperanza Gupta, personally scribed for Dr. Ivory on 03/27/2024 09:26:21. . Documentation recorded by the scribe, Esperanza Gupta, accurately reflects the services(s) I performed and decisions made by me. Authenticated by Dr. Ivory on 03/27/2024 09:27:45. Problem List/Past Medical History Ongoing Anticoagulated Asymptomatic [...] Transurethral resection; residual or regrowth of obstructive prost (more content not included)... Normal [facility] Comment on above: Result Comment: Elec tronically Signed By: Shanna IVORY MD\.br\Date and Time Signed: 03/27/24 09:27 EST\.br\Electronically Co-Signed By: Esperanza Gupta.br\Date and Time Co-Signed: 03/27/24 09:26 EST ALL BUNon 12-13-2023 Urea nitrogen [Mass/Vol] 15 mg/dL 7.0 - 18.0 mg/dL [facility] ALL CARBON DIOXIDEon CO2 [Moles/Vol] 26.1 mmol/L 21.0 - 32.0 mmol/L [facility] ALL CHLORIDEon 12-13-2023 Chloride [Moles/Vol] 106 mmol/L 98 - 10 7 mmol/L [facility] ALL PHOSPHOROUSon 12-13-2023 Phosphate [Mass/Vol] 3.5 mg/dL 2.6 - 4 .7 mg/dL [facility] ALL SODIUMon 12-13-2023 Sodium [Moles/Vol] 141 mmol/L 136 - 145 mmol/L [facility] ALL URIC ACIDon 12-13-2023 Urate [Mass/Vol] 3.6 mg/dL 3.5 - 7.2 mg/dL [facility] CALCIUM 24 HOUR URINEon 11-19 CALCIUM 24 HOUR URINE 202.8 [facility] CALCIUM URINE RANDOM 15.6 mg/dL 5.1 - 2 1.0 mg/dL [facility] CALCIUMon 12-13-2023 Calcium [Mass/Vol] 9.2 mg/dL 8.5 - 10. 1 mg/dL [facility] CREATININE 24 HOUR URINEon 1 CREATININE 24 HOUR URINE 1715.22 [facility] CREATININE URINE RANDOM 131.94 mg/dL 20.0 0 - 300.00 mg/dL [facility] TOTAL VOLUME 24 HOUR URINE 1300 mL/24hr [facility] No Panel Informationon 12-12 [facility] SODIUM 24 HOUR URINEon 12-12 Interpretation and review of laboratory results Abnormal [facility] Sodium (U) [Moles/Vol] 113 mmol/L High 30 - 90 mmol/L [facility] SODIUM 24 HOUR URINE 147 [facility] CREATININEon 12-13-2023 Creatinine [Mass/Vol] 0.98 mg/dL 0.70 - 1.30 mg/dL [facility] GFR/1.73 sq M.predicted CKD-EPI (S/P/Bld) [Vol rate/Area] >60 >=60 mL/min/1.7 3m 2 [facility] EGFR-NON AF CHINESE >60 >=60 mL/min/1.7 3m 2 [facility] Ambulatory Visit Summaryon 1 Ambulatory Visit Summary Ambulatory Visit Summary OLAF BRIONES :1945 Visit Date:11/29/2023 Ambulatory Visit Instructions Your Diagnosis Kidney stone BPH with urinary obstruction Erectile dysfunction Asymptomatic microscopic hematuria Anticoagulated Your Care Team Attending Physician - CACHORRO [...] - Extracorporeal shockwave lithotripsy for renal calculus (2001). Discharge Vitals Temperature (Temporal Artery) 37 ?C Heart Rate (Peripheral) 65 Respiratory Rate 16 Blood Pressure 129/65 Height 172 cm Height 68 in Weight 75.4 kg Weight 165.88 lb BMI 25.49 What to do next Scheduled Follow-Up Appointments Saturday 8:45 AM EST With: Shanna IVORY MD Where: [facility] [address] [place] [address]- You Need to Schedule the Following Appointments Follow Up with Shanna IVORY MD, URL When: Where: [facility] [address] [place] [address]- Medications What How Much When Instructions Unchanged [...] may eat and drink normally. ? Take [id number] and prescription medicines (more content not included)... Normal [facility] Urology Office/Clinic Noteon 11-29-2023 Urology Office/Clinic Note Urology Office/Clinic Note Chief Complaint kidney stone, BPH HPI Staff 1 yr w/ KUB. Previous dx: BPH with obstruction, kidney stone, AMH. S/p [facility]URP 08/28/22 [facility]. *Allopurinol 300mg qd Dysuria: denies Incomplete bladder [...] Calculus of kidney) No metabolic workup since 2018. KUB 10/26/21 - Bilateral stones, L>R. R side obscured. Stone Analysis 08/28/22 - 50% CaOx Hardeman, 40% CaOx Di, and 10% minor components. [...] TURP 2006. [1] S/p TURP 08/28/22 [facility]. Not taking any prostate or bladder meds. Voiding well. 3. Erectile dysfunction (N52.9: Male erectile dysfunction, unspecified) Shares unable to achieve erection after second TURP, was able to achieve after first TURP. Explained potential cause of this (extensive coagulation from bleeding.). 4. Asymptomatic microscopic hematuria (R31.21: Asymptomatic microscopic hematuria) Chronic [1]. Pt unable to provide urine sample today. 5. Anticoagulated (Z79.01: assisted (current) use of anticoagulants) No longer on Brilinta (due to SE of back pain) now on Plavix. Also Aspirin qod. Follow-up With When Contact Information CACHORRO HAHN, Shanna Sánchez, URL [facility] [address], [place] [address]- Additional Instructions: 4 mos with metabolic workup [...] renal ca (more content not included)... Normal [facility] Comment on above: Result Comment: Elec tronically Signed By: Shanna IVORY MD\.br\Date and Time Signed: 11/29/23 09:53 EDT\.br\Electronically Co-Signed By: Cathi Ivan\.br\Date and Time Co-Signed: 11/29/23 09:47 EDT Sea 09-06-2022 JOCELYNN Telephone (URON) ----- OLAF BRIONES ([id number]) 1945 M Date Time Provider Department 09/06/22 JUSTINE WILSON During your visit today, we recorded the following information about you: Justine Wilson RN 09/06/2022 10:31 AM Signed ----- Message from Jocelin Gr sent at 09/06/2022 8:23 AM EDT ----- Regarding: medciation script needed Contact: Pt is calling in to see if the flomax can be called in. The pharmacy is not at [facility]. I will need to call them [...] Hematuria [R31.9] 08/27/2022 Coronary artery disease involving [employer]*08/27/2022 Adverse reaction to antiplatelet agent [T45.7X5*08/27/2022 Myocardial infarction (HCC) [I21.9] 08/27/2022 Essential (primary) hypertension [I10] 08/27/2022 Type 2 diabetes mellitus without complication, *08/27/2022 Leukocytosis [D72.829] 08/27/2022 Malnutrition of mild degree (HCC) [E44.1] 08/29/2022 Encounter Status:Closed by JUSTINE WILSON RN on 09/06/22 Normal [facility] Office Visit (Cardiology)on 09-05-2022 Follow-up visit [...] Status: Hold For - Scheduling Requested for: [id number] Agreement : I agree to have my patient participate in the phase III outpatient cardiac rehabilitation program after completion of the phase II program. Consent : I consent to have my patient participate in the cardiac rehabilitation program. I will continue regular medical care of my patient throughout his/her participation in the program. Individualized Treatment Plan and Exercise Prescription : Request the Outside Salesman to share responsibility for developing an ITP [...] in adult Healthy Weight Tips; Status:Complete; Done: [id number] Some eating tips that can help you lose weight.; Status:Complete; Done: [id number] SocHx: Former smoker Tobacco Use Screening; Status:Complete; Done: [id number] Patient Instructions Please bring all medicines, vitamins, and herbal supplements with you when you come to the office. Prescriptions will not be filled unless you are compliant with your follow up appointments or have a follow up appointment scheduled as per instruction of your physician. Refills should be requested at the time of your visit. Follow up in 4 months Same [facility] cardiac rehab -one month History of Present [...] he developed hematuria ultimately went to the [facility] where he underwent TURP and removal [...] 1 TABLET (more content not included)... Normal [email or web address] Tobacco Screening.on 023 Adult depression screening assessment No [facility] [employer] DO Work Phone: Fall risk assessment a) No falls within the last year [facility] [employer] 250 DO Work Phone: Tobacco use status CPHS b) No M [facility] [employer] DO Work Phone: Sea [facility]20[facility] ----- OLAF BRIONES ([id number]) 1945 M Date Time Provider Department 09/04/22 DEBORAH IBARRA PODCCPuneet During your visit today, we recorded the following information about you: Deborah Ibarra RN 09/04/2022 12:52 PM Signed PATIENT INFORMATION Record ID: [id number] Patient Name: [facility]: [facility]: [facility] Attending: David Andrews Center: Urology INSTRUCTIONS SN to remind patient of appointment date, time, location All Clear All Clear SURVEY INFORMATION Medical/Nurse Gameplay Engineer: Deborah Ibarra 1. Your discharge instructions are [...] Reason for Visit: Follow Up Phone Call [6149] Cmt: All Clear Prescriptions as of 09/04/2022 [...] Hematuria [R31.9] 08/27/2022 Coronary artery disease involving [employer]*08/27/2022 Adverse reaction to antiplatelet agent [T45.7X5*08/27/2022 [...] Type: BLOOD SPECIMENOrdering Facility: [facility] Address: [address] [place] [address] Performed By: #### 5 8410-2 ####[facility] LABIA [id number] [place] [address] [place] Hematocrit (Bld) [Volume fraction] 30.7 % Low 39.0-51.0 [facility] Comment on above: Order Comment: Speci men Type: BLOOD SPECIMENOrdering Facility: [facility] Address: [address] [place] [address] Performed By: #### 5 8410-2 ####[facility] LABCLIA [id number] [place] [address] [place] Hemoglobin (Bld) [Mass/Vol] 10.4 g/dL Low 13.0-17.0 [facility] Comment on above: Order Comment: Speci men Type: BLOOD SPECIMENOrdering Facility: [facility] Address: [address] Performed By: #### 5 8410-2 ####[facility] LABIA [id number] [address] STATES OF [facility] MCH (RBC) [Entitic mass] 31.4 pg Normal 26.0-34.0 [facility] Comment on above: Order Comment: Speci men Type: BLOOD SPECIMENOrdering Facility: [facility] Address: [address] Performed By: #### 5 8410-2 ####[facility] LABIA [id number] [address] MCHC (RBC) [Mass/Vol] 33.9 g/dL Normal 30.5-36.0 [facility] Comment on above: Order Comment: Speci men Type: BLOOD SPECIMENOrdering Facility: [facility] Address: [address] Performed By: #### 5 8410-2 ####[facility] LABIA [id number] [address] STATES [facility] MCV (RBC) [Entitic vol] 92.7 fL Normal 80.0-100.0 [facility] Comment on above: Order Comment: Speci men Type: BLOOD SPECIMENOrdering Facility: [facility] Address: [address] Performed By: #### 5 8410-2 ####[facility] [id number] [address] [place] Nucleated RBC (Bld) [#/Vol] 10*3/uL Normal <0.01 [facility] Comment on above: Order Comment: Speci men Type: BLOOD SPECIMENOrdering Facility: [facility] Address: [address] Performed By: #### 5 8410-2 ####[facility] LABCLIA [id number] [place] [address] [place] Platelet mean volume (Bld) [Entitic vol] 11.5 fL Normal 9.0-12.7 [facility] Comment on above: Order Comment: Speci men Type: BLOOD SPECIMENOrdering Facility: [facility] Address: [address] Performed By: #### 5 8410-2 ####[facility] LABIA [id number] [place] [address] [place] Platelets (Bld) [#/Vol] 194 10*3/uL Normal 150-400 [facility] Comment on above: Order Comment: Speci men Type: BLOOD SPECIMENOrdering Facility: [facility] Address: [address] [place], [place] [address] Performed By: #### 5 8410-2 ####[facility] LABIA [id number] [place] [address] [place] RBC (Bld) [#/Vol] 3.31 10*6/uL Low 4.20-6.00 [facility] Comment on above: Order Comment: Speci men Type: BLOOD SPECIMENOrdering Facility: [facility] Address: [address] [place] [address] Performed By: #### 5 8410-2 ####[facility] LABCLIA [id number] [place] [address] [place] WBC (Bld) [#/Vol] 10.56 10*3/uL Normal 3.70-11.00 [facility] Comment on above: Order Comment: Speci men Type: BLOOD SPECIMENOrdering Facility: [facility] Address: [address] [place], [place] [address] Performed By: #### 5 8410-2 ####[facility] LABCLIA [id number] [place] [id number] [facility] CNDSon 08-31-2022 CNDS HNO ID: [id number] Author: David Andrews MD Service: Urology Author [...] stable in SICU, ready to transfer to [facility]. Hernandez light pink on traction. Discontinued on Zosyn given negative blood and urine cultures. - DOA#3/POD#2: Hemoglobin continues to be stable. Urine light pink off traction. Transferred to [facility] - DOA#4/POD#3: Will discharge today with hernandez [...] These medications were sent to [facility] [address] [place] [address] Hours: Saturday-Saturday 7am-8pm, Saturday, Saturday and Holidays [...] DATE: August 31, 2022 TIME: 8:41 AM [facility] STAFF PHYSICIAN NOTE [...] care coordinatio (more content not included)... Normal [facility] Comprehensive metabolic 2000 panelon 08-31-2022 Albumin [Mass/Vol] 3.8 g/dL Low 3.9-4.9 [facility] Comment on above: Order Comment: Speci men Type: BLOOD SPECIMENOrdering Facility: [facility] Address: [address] [place] [address] Performed By: #### 2 4323-8, , 2776-02 ####[facility] LABIA [id number] [place] [address] [place] ALP [Catalytic activity/Vol] 116 U/L High 38-113 [facility] Comment on above: Order Comment: Speci men Type: BLOOD SPECIMENOrdering Facility: [facility] Address: [address] [place] [address] Performed By: #### 2 4323-8, , 2776-02 ####[facility] LABIA [id number] [address] [place] ALT [Catalytic activity/Vol] 23 U/L Normal 10-54 [facility] Comment on above: Order Comment: Speci men Type: BLOOD SPECIMENOrdering Facility: [facility] Address: [address] Performed By: #### 2 4323-8, , 2776-02 ####[facility] LABIA [id number] [place] [address] [place] Anion gap [Moles/Vol] 9 mmol/L Normal 9-18 [facility] Comment on above: Order Comment: Speci men Type: BLOOD SPECIMENOrdering Facility: [facility] Address: [address] [place] [address] Performed By: #### 2 4323-8, 41057-2, 2776-02 ####[facility] LABCLIA [id number] [place] [address] [place] AST [Catalytic activity/Vol] 19 U/L Normal 14-40 [facility] Comment on above: Order Comment: Speci men Type: BLOOD SPECIMENOrdering Facility: [facility] Address: [address] [place], [place] [address] Performed By: #### 2 4323-8, , 2776-02 ####[facility] LABIA [id number] [place] [address] [place] Bilirubin [Mass/Vol] 0.3 mg/dL Normal 0.2-1.3 [facility] Comment on above: Order Comment: Speci men Type: BLOOD SPECIMENOrdering Facility: [facility] Address: [address] [place] [address] Performed By: #### 2 4323-8, , 2776-02 ####[facility] LABIA [id number] [place] [address] [place] Calcium [Mass/Vol] 9.1 mg/dL Normal 8.5-10.2 [facility] Comment on above: Order Comment: Speci men Type: BLOOD SPECIMENOrdering Facility: [facility] Address: [address] [place] [address] Performed By: #### 2 4323-8, , 2776-02 ####[facility] LABIA [id number] [place] [address] [place] Chloride [Moles/Vol] 105 mmol/L Normal 97-105 [facility] Comment on above: Order Comment: Speci men Type: BLOOD SPECIMENOrdering Facility: [facility] Address: [address] [place] [address] Performed By: #### 2 4323-8, , 2776-02 ####[facility] LABCLIA [id number] [place] [address] [place] CO2 [Moles/Vol] 25 mmol/L Normal 22-30 [facility] Comment on above: Order Comment: Speci men Type: BLOOD SPECIMENOrdering Facility: [facility] Address: [address] [place] [address] Performed By: #### 2 4323-8, , 2776-02 ####[facility] LABIA [id number] [place] [address] [place] Creatinine [Mass/Vol] 0.88 mg/dL Normal 0.73-1.22 [facility] Comment on above: Order Comment: Speci men Type: BLOOD SPECIMENOrdering Facility: [facility] Address: [address] [place] [address] Performed By: #### 2 432-8, , 2776-02 ####[facility] LABIA [id number] [place] [address] [place] ESTIMATED GLOMERULAR FILTRATION RATE 89 mL/min/1.73m??? Normal >=60 [facility] Comment on above: Order Comment: Speci men Type: BLOOD SPECIMENOrdering Facility: [facility] Address: [address] [place] [address] Result Comment: Mariaelena mated Glomerular Filtration Rate [...] Performed By: #### 2 4323-8, , 2776-02 ####[facility] LABIA [id number] [place] [address] [place] Glucose [Mass/Vol] 114 mg/dL High 74-99 [facility] Comment on above: Order Comment: Speci men Type: BLOOD SPECIMENOrdering Facility: [facility] Address: [address] [place] [address] Result Comment: The [place] Diabetes Association (ADA) provides guidance for cutoff [...] Standards of Medical Care in Diabetes 2016, [place] [employer]. Diabetes Care. 2016.39(Suppl 1). Performed By: #### 2 4323-8, , 2776-02 ####[facility] LABCLIA [id number] [place] [address] [place] Potassium [Moles/Vol] 4.2 mmol/L Normal 3.7-5.1 [facility] Comment on above: Order Comment: Speci men Type: BLOOD SPECIMENOrdering Facility: [facility] Address: [address] [place], [place] [address] Performed By: #### 2 4323-8, , 2776-02 ####[facility] LABCLIA [id number] [place] [address] [place] Protein [Mass/Vol] 6.1 g/dL Low 6.3-8.0 [facility] Comment on above: Order Comment: Speci men Type: BLOOD SPECIMENOrdering Facility: [facility] Address: [address] [place], [place] [address] Performed By: #### 2 4323-8, , 2776-02 ####[facility] LABCLIA [id number] [place] [address] [place] Sodium [Moles/Vol] 139 mmol/L Normal 136-144 [facility] Comment on above: Order Comment: Speci men Type: BLOOD SPECIMENOrdering Facility: [facility] Address: [address] [place] [address] Performed By: #### 2 4323-8, 44359-0, 2776-1 ####[facility] [id number] [place] [address] [place] Urea nitrogen [Mass/Vol] 21 mg/dL Normal 9-24 [facility] Comment on above: Order Comment: Speci men Type: BLOOD SPECIMENOrdering Facility: [facility] Address: [address] [place] [address] Performed By: #### 2 4323-8, , 2776-02 ####[facility] [id number] [place] [address] [place] Magnesium SerPl-mCncon 08-31 Magnesium [Mass/Vol] 2.2 mg/dL Normal 1.7-2.3 [facility] Comment on above: Order Comment: Speci men Type: BLOOD SPECIMENOrdering Facility: [facility] Address: [address] [place] [address] Performed By: #### 2 4323-8, , 2776- ####[facility] [id number] [place] [id number] [place] PT panel Coag (PPP)on 2022 INR Coag (PPP) [Relative time] 1.0 {INR} Normal 0.9-1.3 [facility] Comment on above: Order Comment: Speci men Type: BLOOD SPECIMENOrdering Facility: [facility] Address: [address] [place], [place] [phone] Result Comment: Mago min K Antagonist (VKA) Therapeutic Range: INR 2 to 3 (Target INR of 2.5) Note: For patients treated with VKA drugs, such as warfarin, the [place] [employer] 2012 Guideline recommends [...] Chest 2012, 141:7S-47S Daniel RA, et al. [facility] 2017, 70: 252-289 Performed By: #### 3 4528-0, 81781-8 ####[facility] LABCLIA [id number] [address] [place] PT Coag (PPP) [Time] 10.4 s Normal 9.7-13.0 [facility] Comment on above: Order Comment: Speci men Type: BLOOD SPECIMENOrdering Facility: [facility] Address: [address] [place] [address] Performed By: #### 3 4528-0, 98109-5 ####[facility] LABCLIA [id number] [place] [address] [place] Phosphate SerPl-mCncon 08-31 Phosphate [Mass/Vol] 3.6 mg/dL Normal 2.7-4.8 [facility] Comment on above: Order Comment: Speci men Type: BLOOD SPECIMENOrdering Facility: [facility] Address: [address] [place] [address] Performed By: #### 2 4323-8, 74636-0, 2777-1 ####[facility] LABCLIA [id number] [place] [address] [place] THERAPY NTon 07-14-2023 THERAPY NT HNO ID: [id number] Author: Jenna Duggan, PT Service: Physical Therapy Author Type: Physical Therapist Type: Therapy (PT/OT/Speech/Resp) Filed: 08/31/2022 10:55 AM Note Text: Physical Therapy Treatment SERVICE DATE: 08/31/2022 SERVICE TIME: 0940 to 1003 ROOM: [place] [address] Recommended Discharge Disposition: Home Anticipated Discharge Needs: [...] DM, recent STEMI (08/20/2022), transferred from [facility] for gross hematuria. Currently with 18Fr 3-way catheter on CBI. 08/28/22: s/p cystoscopy, clot evacuation, cystolitholapaxy, TURP. Admitted to SICU postoperatively due to pressor requirements and risk of hyponatremia due to length of TURP. 22Fr [address] hernandez placed introp, on traction and CBI. Reason for Hospital Admission: Pt 77y/o male transferred from [facility] for gross hematuria secondary to recent STEMI [...] Diagnosis: Reduced mobility-other Interventions Provided: Gait Training (52099) Gait Training (77593) Treatment Minutes: 23 $ Gait Training (88645) Billed Units: 2 units Training AND Education Provided in: Benefits of In-Hospital Mobility, Bed Mobility, Energy Conservation, Equipment, Exercise Program, Expected Functional Level, Gait Pattern, Reduction of Deviations, Patient Exercise/Therapy Program Support Needs, Positioning, Precautions/Restrictions, Role of Physical Therapy, Standing Balance, (more content not included)... Normal [facility] aPTT PPPon 08-31-2022 aPTT Coag (PPP) [Time] 25.2 s Normal 23.0-32.4 [facility] Comment on above: Order Comment: Speci men Type: BLOOD SPECIMENOrdering Facility: [facility] Address: [address] [place] [address] Performed By: #### 3 4528-0, 37484-1 ####[facility] LABIA [id number] [place] [address] [place] CBC panel Auto (Bld)on 08-30 Erythrocyte distribution width (RBC) [Ratio] 12.7 % Normal 11.5-15.0 [facility] Comment on above: Order Comment: Speci men Type: BLOOD SPECIMENOrdering Facility: [facility] Address: [address] [place] [address] Performed By: #### 5 8410-2 ####[facility] LABIA [id number] [place] [address] [place] Hematocrit (Bld) [Volume fraction] 30.5 % Low 39.0-51.0 [facility] Comment on above: Order Comment: Speci men Type: BLOOD SPECIMENOrdering Facility: [facility] Address: [address] [place] [address] Performed By: #### 5 8410-2 ####[facility] LABIA [id number] [place] [address] [place] Hemoglobin (Bld) [Mass/Vol] 10.4 g/dL Low 13.0-17.0 [facility] Comment on above: Order Comment: Speci men Type: BLOOD SPECIMENOrdering Facility: [facility] Address: [address] [place] [address] Performed By: #### 5 8410-2 ####[facility] LABIA [id number] [address] MCH (RBC) [Entitic mass] 31.7 pg Normal 26.0-34.0 [facility] Comment on above: Order Comment: Speci men Type: BLOOD SPECIMENOrdering Facility: [facility] Address: [address] [place] [address] Performed By: #### 5 8410-2 ####[facility] LABCLIA [id number] [address] [place] MCHC (RBC) [Mass/Vol] 34.1 g/dL Normal 30.5-36.0 [facility] Comment on above: Order Comment: Speci men Type: BLOOD SPECIMENOrdering Facility: [facility] Address: [address] [place] [address] Performed By: #### 5 8410-2 ####[facility] LABCLIA [id number] [address] [place] MCV (RBC) [Entitic vol] 93.0 fL Normal 80.0-100.0 [facility] Comment on above: Order Comment: Speci men Type: BLOOD SPECIMENOrdering Facility: [facility] Address: [address] [place] [address] Performed By: #### 5 8410-2 ####[facility] LABCLIA [id number] [address] [place] Nucleated RBC (Bld) [#/Vol] 10*3/uL Normal <0.01 [facility] Comment on above: Order Comment: Speci men Type: BLOOD SPECIMENOrdering Facility: [facility] Address: [address] [place], [place] [phone] Performed By: #### 5 8410-2 ####[facility] LABCLIA [id number] [place] [address] [place] Platelet mean volume (Bld) [Entitic vol] 11.6 fL Normal 9.0-12.7 [facility] Comment on above: Order Comment: Speci men Type: BLOOD SPECIMENOrdering Facility: [facility] Address: [address] [place] [address] Performed By: #### 5 8410-2 ####[facility] LABCLIA [id number] [place] [address] [place] Platelets (Bld) [#/Vol] 192 10*3/uL Normal 150-400 [facility] Comment on above: Order Comment: Speci men Type: BLOOD SPECIMENOrdering Facility: [facility] Address: [address] [place] [address] Performed By: #### 5 8410-2 ####[facility] LABIA [id number] [place] [address] [place] RBC (Bld) [#/Vol] 3.28 10*6/uL Low 4.20-6.00 [facility] Comment on above: Order Comment: Speci men Type: BLOOD SPECIMENOrdering Facility: [facility] Address: [address] [place] [address] Performed By: #### 5 8410-2 ####[facility] LABIA [id number] [place] [address] [place] WBC (Bld) [#/Vol] 15.06 10*3/uL High 3.70-11.00 [facility] Comment on above: Order Comment: Speci men Type: BLOOD SPECIMENOrdering Facility: [facility] Address: [address] [place] [address] Performed By: #### 5 8410-2 ####[facility] LABIA [id number] [place] [address] [place] Comprehensive metabolic 2000 panelon 08-30-2022 Albumin [Mass/Vol] 3.4 g/dL Low 3.9-4.9 [facility] Comment on above: Order Comment: Speci men Type: BLOOD SPECIMENOrdering Facility: [facility] Address: [address] [place] [address] Performed By: #### 2 4323-8, 95610-3, 2776- ####[facility] LABCLIA [id number] [place] [address] [place] ALP [Catalytic activity/Vol] 105 U/L Normal 38-113 [facility] Comment on above: Order Comment: Speci men Type: BLOOD SPECIMENOrdering Facility: [facility] Address: [address] [place] [address] Performed By: #### 2 4323-8, 69779-4, 2776- ####[facility] LABCLIA [id number] [place] [address] [place] ALT [Catalytic activity/Vol] 18 U/L Normal 10-54 [facility] Comment on above: Order Comment: Speci men Type: BLOOD SPECIMENOrdering Facility: [facility] Address: [address] [place] [address] Performed By: #### 2 4323-8, , 2776-02 ####[facility] LABIA [id number] [place] [address] [place] Anion gap [Moles/Vol] 11 mmol/L Normal 9-18 [facility] Comment on above: Order Comment: Speci men Type: BLOOD SPECIMENOrdering Facility: [facility] Address: [address] [address] [place] [id number] Performed By: #### 2 4323-8, , 2776-02 ####[facility] LABCLIA [id number] [place] [address] [place] AST [Catalytic activity/Vol] 16 U/L Normal 14-40 [facility] Comment on above: Order Comment: Speci men Type: BLOOD SPECIMENOrdering Facility: [facility] Address: [address] [place], [place] [address] Performed By: #### 2 4323-8, , 2776-02 ####[facility] LABCLIA [id number] [place] [address] [place] Bilirubin [Mass/Vol] 0.3 mg/dL Normal 0.2-1.3 [facility] Comment on above: Order Comment: Speci men Type: BLOOD SPECIMENOrdering Facility: [facility] Address: [address] [place], [place] [address] Performed By: #### 2 432-8, , 2776-02 ####[facility] LABCLIA [id number] [place] [address] [place] Calcium [Mass/Vol] 8.9 mg/dL Normal 8.5-10.2 [facility] Comment on above: Order Comment: Speci men Type: BLOOD SPECIMENOrdering Facility: [facility] Address: [address] [place] [address] Performed By: #### 2 432-8, , 2776-02 ####[facility] LABCLIA [id number] [place] [address] [place] Chloride [Moles/Vol] 103 mmol/L Normal 97-105 [facility] Comment on above: Order Comment: Speci men Type: BLOOD SPECIMENOrdering Facility: [facility] Address: [address] [place], [place] [address] Performed By: #### 2 432-8, , 2776-02 ####[facility] LABCLIA [id number] [place] [address] [place] CO2 [Moles/Vol] 24 mmol/L Normal 22-30 [facility] Comment on above: Order Comment: Speci men Type: BLOOD SPECIMENOrdering Facility: [facility] Address: [address] Performed By: #### 2 4323-8, , 2776-02 ####[facility] LABCLIA [id number] [address] [address] [place] Creatinine [Mass/Vol] 0.77 mg/dL Normal 0.73-1.22 [facility] Comment on above: Order Comment: Portia tay Type: BLOOD SPECIMENOrdering Facility: [facility] Address: [address] [place] [place] [address] Performed By: #### 2 4323-8, , 2776-02 ####[facility] LABCLIA [id number] [place] [address] [place] ESTIMATED GLOMERULAR FILTRATION RATE 92 mL/min/1.73m??? Normal >=60 [facility] Comment on above: Order Comment: Portia tay Type: BLOOD SPECIMENOrdering Facility: [facility] Address: [address] [address] Result Comment: Mariaelena mated Glomerular Filtration Rate [...] Performed By: #### 2 4323-8, , 2776-02 ####[facility] LABIA [id number] [place] [id number] [place] Glucose [Mass/Vol] 124 mg/dL High 74-99 [facility] Comment on above: Order Comment: Portia tay Type: BLOOD SPECIMENOrdering Facility: [facility] Address: [address] [address] Result Comment: The [place] Diabetes Association (ADA) provides guidance for cutoff [...] Standards of Medical Care in Diabetes 2016, [place] [employer]. Diabetes Care. 2016.39(Suppl 1). Performed By: #### 2 4323-8, , 2776-02 ####[facility] LABCLIA [id number] [place] [address] [place] Potassium [Moles/Vol] 3.9 mmol/L Normal 3.7-5.1 [facility] Comment on above: Order Comment: Portia tay Type: BLOOD SPECIMENOrdering Facility: [facility] Address: [address] [place] [address] Performed By: #### 2 4323-8, , 2776-02 ####[facility] LABCLIA [id number] [place] [address] [place] Protein [Mass/Vol] 6.2 g/dL Low 6.3-8.0 [facility] Comment on above: Order Comment: Portia tay Type: BLOOD SPECIMENOrdering Facility: [facility] Address: [address] [place] [address] Performed By: #### 2 4323-8, , 2776-02 ####[facility] LABCLIA [id number] [place] [address] [place] Sodium [Moles/Vol] 138 mmol/L Normal 136-144 [facility] Comment on above: Order Comment: Portia tay Type: BLOOD SPECIMENOrdering Facility: [facility] Address: [address] [place] [address] Performed By: #### 2 4323-8, , 2776-02 ####[facility] LABCLIA [id number] [place] [address] [place] Urea nitrogen [Mass/Vol] 22 mg/dL Normal 9-24 [facility] Comment on above: Order Comment: Portia tay Type: BLOOD SPECIMENOrdering Facility: [facility] Address: [address] [place] [address] Performed By: #### 2 4323-8, 56119-7, 2777-1 ####[facility] LABCLIA [id number] [place] [id number] [place] Magnesium SerPl-mCncon 08-30 Magnesium [Mass/Vol] 2.2 mg/dL Normal 1.7-2.3 [facility] Comment on above: Order Comment: Portia tay Type: BLOOD SPECIMENOrdering Facility: [facility] Address: [address] [place], [place] [address] Performed By: #### 2 4323-8, 83643-3, 2777-1 ####[facility] LABIA [id number] [place] [address] [place] PT panel Coag (PPP)on 2022 INR Coag (PPP) [Relative time] 1.1 {INR} Normal 0.9-1.3 [facility] Comment on above: Order Comment: Portia tay Type: BLOOD SPECIMENOrdering Facility: [facility] Address: [address] [place] [address] Result Comment: Mago min K Antagonist (VKA) Therapeutic Range: INR 2 to 3 (Target INR of 2.5) Note: For patients treated with VKA drugs, such as warfarin, the [place] [employer] 2012 Guideline recommends [...] Chest 2012, 141:7S-47S Daniel RA, et al. [facility] 2017, 70: 252-289 Performed By: #### 3 4528-0, 52197-7 ####[facility] LABIA [id number] [address] [facility] PT Coag (PPP) [Time] 10.9 s Normal 9.7-13.0 [facility] Comment on above: Order Comment: Speci men Type: BLOOD SPECIMENOrdering Facility: [facility] Address: [address] [place] [address] Performed By: #### 3 4528-0, 44517-3 ####[facility] [id number] [address] Phosphate SerPl-mCncon 08-30 Phosphate [Mass/Vol] 3.2 mg/dL Normal 2.7-4.8 [facility] Comment on above: Order Comment: Portia tay Type: BLOOD SPECIMENOrdering Facility: [facility] Address: [address] [place] [address] Performed By: #### 2 4323-8, 96488-8, 2777-1 ####[facility] [id number] [address] THERAPY NTon 08-30-2022 THERAPY NT HNO ID: [id number] Author: Jenna Duggan, PT Service: Physical Therapy Author Type: Physical Therapist Type: Therapy (PT/OT/Speech/Resp) Filed: 08/30/2022 3:12 PM Note Text: Physical Therapy Treatment SERVICE DATE: 08/30/2022 SERVICE TIME: 1337 to 1400 ROOM: [place] [address] Recommended Discharge Disposition: Home Anticipated Discharge Needs: [...] DM, recent STEMI (08/20/2022), transferred from [facility] for gross hematuria. Currently with 18Fr 3-way catheter on CBI. 08/28/22: s/p cystoscopy, clot evacuation, cystolitholapaxy, TURP. Admitted to SICU postoperatively due to pressor requirements and risk of hyponatremia due to length of TURP. 22Fr [address] hernandez placed introp, on traction and CBI. Reason for Hospital Admission: Pt 77y/o male transferred from [facility] for gross hematuria secondary to recent STEMI [...] Diagnosis: Reduced mobility-other Interventions Provided: Therapeutic Activity (49543), Gait Training (97403) Therapeutic Activity (65671) Treatment Minutes: 8 $ Therapeutic Activity (46443) Billed Units: 1 unit Gait Training (63955) Treatment Minutes: 15 $ Gait Training (40341) Billed Units: 1 unit Training AND Education [...] Type: BLOOD SPECIMENOrdering Facility: [facility] Address: [address] [place], [place] [address] Performed By: #### T SCR ####CC [facility] BLOOD BANKCLIA [id number] [address] [place] HISTORICAL AB SCR STATUS Negative Normal [facility] Comment on above: Order Comment: Speci men Type: BLOOD SPECIMENOrdering Facility: [facility] Address: [address] [place] [address] Performed By: #### T SCR ####CC [facility] BLOOD BANKCLIA [id number] [address] Rh Nom (Bld) Positive Normal [facility] Comment on above: Order Comment: Speci men Type: BLOOD SPECIMENOrdering Facility: [facility] Address: [address] [place] [address] Performed By: #### T SCR ####CC [facility] BLOOD BANKIA [id number] [address] TYPE AND SCREEN EXPIRATION 09/02/2022 23:59 Normal [facility] Comment on above: Order Comment: Speci men Type: BLOOD SPECIMENOrdering Facility: [facility] Address: [address] [place] [address] Performed By: #### T SCR ####CC [facility] BLOOD BANKIA [id number] [address] [place] aPTT PPPon 08-30-2022 aPTT Coag (PPP) [Time] 26.5 s Normal 23.0-32.4 [facility] Comment on above: Order Comment: Speci men Type: BLOOD SPECIMENOrdering Facility: [facility] Address: [address] [place], [place] [address] Performed By: #### 3 4528-0, 13661-6 ####[facility] LABCLIA [id number] [address] CBC panel Auto (Bld)on 08-29 Erythrocyte distribution width (RBC) [Ratio] 12.5 % Normal 11.5-15.0 [facility] Comment on above: Order Comment: Speci men Type: BLOOD SPECIMENOrdering Facility: [facility] Address: [address] [place] [address] Performed By: #### 5 8410-2 ####[facility] LABIA [id number] [address] [place] Hematocrit (Bld) [Volume fraction] 30.7 % Low 39.0-51.0 [facility] Comment on above: Order Comment: Speci men Type: BLOOD SPECIMENOrdering Facility: [facility] Address: [address] [place] [address] Performed By: #### 5 8410-2 ####[facility] LABIA [id number] [place] [address] [place] Hemoglobin (Bld) [Mass/Vol] 10.6 g/dL Low 13.0-17.0 [facility] Comment on above: Order Comment: Speci men Type: BLOOD SPECIMENOrdering Facility: [facility] Address: [address] [place] [address] Performed By: #### 5 8410-2 ####[facility] [id number] [address] [place] MCH (RBC) [Entitic mass] 32.0 pg Normal 26.0-34.0 [facility] Comment on above: Order Comment: Speci men Type: BLOOD SPECIMENOrdering Facility: [facility] Address: [address] [place] [address] Performed By: #### 5 8410-2 ####[facility] LABIA [id number] [address] [place] MCHC (RBC) [Mass/Vol] 34.5 g/dL Normal 30.5-36.0 [facility] Comment on above: Order Comment: Speci men Type: BLOOD SPECIMENOrdering Facility: [facility] Address: [address] [place] [address] Performed By: #### 5 8410-2 ####[facility] [id number] [address] [place] MCV (RBC) [Entitic vol] 92.7 fL Normal 80.0-100.0 [facility] Comment on above: Order Comment: Speci men Type: BLOOD SPECIMENOrdering Facility: [facility] Address: [address] [place] [address] Performed By: #### 5 8410-2 ####[facility] LABIA [id number] [place] [address] [place] Nucleated RBC (Bld) [#/Vol] 10*3/uL Normal <0.01 [facility] Comment on above: Order Comment: Speci men Type: BLOOD SPECIMENOrdering Facility: [facility] Address: [address] [place] [address] Performed By: #### 5 8410-2 ####[facility] LABIA [id number] [place] [address] [place] Platelet mean volume (Bld) [Entitic vol] 11.6 fL Normal 9.0-12.7 [facility] Comment on above: Order Comment: Speci men Type: BLOOD SPECIMENOrdering Facility: [facility] Address: [address] [place] [address] Performed By: #### 5 8410-2 ####[facility] LABIA [id number] [place] [address] [place] Platelets (Bld) [#/Vol] 159 10*3/uL Normal 150-400 [facility] Comment on above: Order Comment: Speci men Type: BLOOD SPECIMENOrdering Facility: [facility] Address: [address] [place] [address] Performed By: #### 5 8410-2 ####[facility] LABIA [id number] [place] [address] [place] RBC (Bld) [#/Vol] 3.31 10*6/uL Low 4.20-6.00 [facility] Comment on above: Order Comment: Speci men Type: BLOOD SPECIMENOrdering Facility: [facility] Address: [address] Performed By: #### 5 8410-2 ####[facility] LABCLIA [id number] [place] [address] [place] WBC (Bld) [#/Vol] 13.57 10*3/uL High 3.70-11.00 [facility] Comment on above: Order Comment: Speci men Type: BLOOD SPECIMENOrdering Facility: [facility] Address: [address] Performed By: #### 5 8410-2 ####[facility] LABIA [id number] [place] [address] [place] Erythrocyte distribution width (RBC) [Ratio] 12.5 % Normal 11.5-15.0 [facility] Comment on above: Order Comment: Speci men Type: BLOOD SPECIMENOrdering Facility: [facility] Address: [address] Performed By: #### 5 8410-2 ####[facility] LABIA [id number] [place] [address] [place] Hematocrit (Bld) [Volume fraction] 25.7 % Low 39.0-51.0 [facility] Comment on above: Order Comment: Speci men Type: BLOOD SPECIMENOrdering Facility: [facility] Address: [address] Performed By: #### 5 8410-2 ####[facility] LABIA [id number] [place] [address] [place] Hemoglobin (Bld) [Mass/Vol] 9.1 g/dL Low 13.0-17.0 [facility] Comment on above: Order Comment: Speci men Type: BLOOD SPECIMENOrdering Facility: [facility] Address: [address] Performed By: #### 5 8410-2 ####[facility] LABIA [id number] [address] MCH (RBC) [Entitic mass] 32.4 pg Normal 26.0-34.0 [facility] Comment on above: Order Comment: Speci men Type: BLOOD SPECIMENOrdering Facility: [facility] Address: [address] Performed By: #### 5 8410-2 ####[facility] [id number] [address] [place] MCHC (RBC) [Mass/Vol] 35.4 g/dL Normal 30.5-36.0 [facility] Comment on above: Order Comment: Speci men Type: BLOOD SPECIMENOrdering Facility: [facility] Address: [address] [place] [address] Performed By: #### 5 8410-2 ####[facility] [id number] [address] [place] MCV (RBC) [Entitic vol] 91.5 fL Normal 80.0-100.0 [facility] Comment on above: Order Comment: Speci men Type: BLOOD SPECIMENOrdering Facility: [facility] Address: [address] [place] [address] Performed By: #### 5 8410-2 ####[facility] LABIA [id number] [address] [place] Nucleated RBC (Bld) [#/Vol] 10*3/uL Normal <0.01 [facility] Comment on above: Order Comment: Speci men Type: BLOOD SPECIMENOrdering Facility: [facility] Address: [address] [place] [address] Performed By: #### 5 8410-2 ####[facility] LABIA [id number] [place] [address] [place] Platelet mean volume (Bld) [Entitic vol] 11.1 fL Normal 9.0-12.7 [facility] Comment on above: Order Comment: Speci men Type: BLOOD SPECIMENOrdering Facility: [facility] Address: [address] [place] [address] Performed By: #### 5 8410-2 ####[facility] LABIA [id number] [place] [address] [place] Platelets (Bld) [#/Vol] 138 10*3/uL Low 150-400 [facility] Comment on above: Order Comment: Speci men Type: BLOOD SPECIMENOrdering Facility: [facility] Address: [address] [place] [address] Result Comment: No c lot detected.Results checked and verified. Performed By: #### 5 8410-2 ####[facility] LABIA [id number] [place] [address] [place] RBC (Bld) [#/Vol] 2.81 10*6/uL Low 4.20-6.00 [facility] Comment on above: Order Comment: Speci men Type: BLOOD SPECIMENOrdering Facility: [facility] Address: [address] [place] [address] Performed By: #### 5 8410-2 ####[facility] LABIA [id number] [place] [address] [place] WBC (Bld) [#/Vol] 11.86 10*3/uL High 3.70-11.00 [facility] Comment on above: Order Comment: Speci men Type: BLOOD SPECIMENOrdering Facility: [facility] Address: [address] [place] [address] Performed By: #### 5 8410-2 ####[facility] LABIA [id number] [place] [address] [place] CNPNon 08-29-2022 CNPN Telephone (UROLMN) ----- ANSELMOOLAF ([id number]) 1945 M Date Time Provider Department 08/29/22 [...] Rash Date Reviewed: 08/28/2022 Reviewed by: Shaq Jackson, BRICE - Fully Assessed Reason for Visit: update [...] Hematuria [R31.9] 08/27/2022 Coronary artery disease involving [employer]*08/27/2022 Adverse reaction to antiplatelet agent [T45.7X5*08/27/2022 Myocardial infarction (HCC) [I21.9] 08/27/2022 Primary hypertension [I10] 08/27/2022 Type 2 diabetes mellitus without complication, *08/27/2022 Leukocytosis [D72.829] 08/27/2022 Malnutrition of mild degree (HCC) [E44.1] 08/29/2022 Encounter Status:Closed by DAVID ANDREWS on 08/29/22 [facility] CONSULT PROGon 08-29-2022 CONSULT PROG HNO ID: [id number] Author: Rodriguez Miller APRN.WINE MASTER Service: Cardiovascular Medicine Author Type: Nurse Practitioner Type: Consult Progress Note Filed: 08/29/2022 11:18 AM Note Text: [facility] CONSULT PROGRESS NOTE (Template ID [id number]) CONSULTING SERVICE: Cardiology: Consult Team PRIMARY SERVICE: [...] 08/29/2022 0700 Gross per 24 hour Intake 57222.5 ml Output 62971 ml Net 5853.5 ml TELEMETRY: SR IMAGING: [...] for comparison. Stent card from [facility] from 08/20/2022 DATA: Laboratory: Recent Labs 08/29/2232208/29/2224108/28/222127 WBC 13.57* 11.86* 16.02* HB 10.6* 9.1* 12.1* HCT 30.7* 25.7* 35.7* PLT 159 138* 179 NA 136 137 139 K 4.1 4.0 4.2 CHLOR 102 103 105 CO2 22 20* 24 BUN 14 12 14 CREAT 0.69* 0.64* 0.76 GLUC 202* 186* 147* Recent Labs 08/29/22 03208/29/22 02408/27/22 0710 INR 1.0 1.1 1.0 ASSESSMENT / RECOMMENDATIONS / PLAN Olaf Briones is a 77M with a past medical hx of STEMI s/p JUHI to prox RCA 08/20/22 (on ASA and Brilinta), CAD with 50-70% mid to distal LAD disease, HTN, HLD, DM, nephrolithiasis s/p ESWL (2000) and TURP (2006) who presented to [facility] (more content not included)... Normal [facility] Comprehensive metabolic 2000 panelon 08-29-2022 Albumin [Mass/Vol] 4.2 g/dL Normal 3.9-4.9 [facility] Comment on above: Order Comment: Speci men Type: BLOOD SPECIMENOrdering Facility: [facility] Address: [address] [place] [address] Performed By: #### 2 4323-8 ####[facility] LABCLIA [id number] [place] [address] [place] ALP [Catalytic activity/Vol] 116 U/L High 38-113 [facility] Comment on above: Order Comment: Speci men Type: BLOOD SPECIMENOrdering Facility: [facility] Address: [address] [place] [address] Performed By: #### 2 4323-8 ####[facility] LABCLIA [id number] [place] [address] [place] ALT [Catalytic activity/Vol] 20 U/L Normal 10-54 [facility] Comment on above: Order Comment: Speci men Type: BLOOD SPECIMENOrdering Facility: [facility] Address: [address] [place] [address] Performed By: #### 2 4323-8 ####[facility] LABCLIA [id number] [place] [address] [place] Anion gap [Moles/Vol] 13 mmol/L Normal 9-18 [facility] Comment on above: Order Comment: Speci men Type: BLOOD SPECIMENOrdering Facility: [facility] Address: [address] [place] [address] Performed By: #### 2 4323-8 ####[facility] LABCLIA [id number] [place] [address] [place] AST [Catalytic activity/Vol] 19 U/L Normal 14-40 [facility] Comment on above: Order Comment: Speci men Type: BLOOD SPECIMENOrdering Facility: [facility] Address: [address] [place] [address] Performed By: #### 2 4323-8 ####[facility] LABCLIA [id number] [place] [address] [place] Bilirubin [Mass/Vol] 0.4 mg/dL Normal 0.2-1.3 [facility] Comment on above: Order Comment: Speci men Type: BLOOD SPECIMENOrdering Facility: [facility] Address: [address] Performed By: #### 2 4323-8 ####[facility] LABCLIA [id number] [place] [address] [place] Calcium [Mass/Vol] 9.4 mg/dL Normal 8.5-10.2 [facility] Comment on above: Order Comment: Speci men Type: BLOOD SPECIMENOrdering Facility: [facility] Address: [address] Performed By: #### 2 4323-8 ####[facility] LABCLIA [id number] [place] [address] [place] Chloride [Moles/Vol] 102 mmol/L Normal 97-105 [facility] Comment on above: Order Comment: Speci men Type: BLOOD SPECIMENOrdering Facility: [facility] Address: [address] Performed By: #### 2 4323-8 ####[facility] LABCLIA [id number] [place] [address] [place] CO2 [Moles/Vol] 25 mmol/L Normal 22-30 [facility] Comment on above: Order Comment: Speci men Type: BLOOD SPECIMENOrdering Facility: [facility] Address: [address] Performed By: #### 2 4323-8 ####[facility] LABCLIA [id number] [place] [address] [place] Creatinine [Mass/Vol] 0.86 mg/dL Normal 0.73-1.22 [facility] Comment on above: Order Comment: Speci men Type: BLOOD SPECIMENOrdering Facility: [facility] Address: [address] [address] Performed By: #### 2 4323-8 ####[facility] LABCLIA [id number] [place] [id number] [place] ESTIMATED GLOMERULAR FILTRATION RATE 89 mL/min/1.73m??? Normal >=60 [facility] Comment on above: Order Comment: Portia tay Type: BLOOD SPECIMENOrdering Facility: [facility] Address: [address] [place] [address] Result Comment: Mariaelena mated Glomerular Filtration Rate [...] actual GFR. Performed By: #### 2 4323-8 ####[facility] LABCLIA [id number] [place] [address] [place] Glucose [Mass/Vol] 166 mg/dL High 74-99 [facility] Comment on above: Order Comment: Portia tay Type: BLOOD SPECIMENOrdering Facility: [facility] Address: [address] [place] [address] Result Comment: The [place] Diabetes Association (ADA) provides guidance for cutoff [...] Standards of Medical Care in Diabetes 2016, [place] [employer]. Diabetes Care. 2016.39(Suppl 1). Performed By: #### 2 4323-8 ####[facility] LABCLIA [id number] [place] [address] [place] Potassium [Moles/Vol] 3.9 mmol/L Normal 3.7-5.1 [facility] Comment on above: Order Comment: Speci men Type: BLOOD SPECIMENOrdering Facility: [facility] Address: [address] Performed By: #### 2 4323-8 ####[facility] LABCLIA [id number] [place] [address] [place] Protein [Mass/Vol] 6.6 g/dL Normal 6.3-8.0 [facility] Comment on above: Order Comment: Speci men Type: BLOOD SPECIMENOrdering Facility: [facility] Address: [address] Performed By: #### 2 4323-8 ####[facility] LABCLIA [id number] [place] [address] [place] Sodium [Moles/Vol] 140 mmol/L Normal 136-144 [facility] Comment on above: Order Comment: Speci men Type: BLOOD SPECIMENOrdering Facility: [facility] Address: [address] Performed By: #### 2 4323-8 ####[facility] LABCLIA [id number] [place] [address] [place] Urea nitrogen [Mass/Vol] 21 mg/dL Normal 9-24 [facility] Comment on above: Order Comment: Speci men Type: BLOOD SPECIMENOrdering Facility: [facility] Address: [address] Performed By: #### 2 4323-8 ####[facility] LABCLIA [id number] [place] [address] [place] Albumin [Mass/Vol] 3.6 g/dL Low 3.9-4.9 [facility] Comment on above: Order Comment: Speci men Type: BLOOD SPECIMENOrdering Facility: [facility] Address: [address] Performed By: #### 2 4323-8 ####[facility] LABCLIA [id number] [place] [address] [place] ALP [Catalytic activity/Vol] 96 U/L Normal 38-113 [facility] Comment on above: Order Comment: Speci men Type: BLOOD SPECIMENOrdering Facility: [facility] Address: [address] [place] [address] Performed By: #### 2 4323-8 ####[facility] LABCLIA [id number] [place] [address] [place] ALT [Catalytic activity/Vol] 18 U/L Normal 10-54 [facility] Comment on above: Order Comment: Speci men Type: BLOOD SPECIMENOrdering Facility: [facility] Address: [address] [place] [address] Performed By: #### 2 4323-8 ####[facility] LABCLIA [id number] [place] [address] [place] Anion gap [Moles/Vol] 10 mmol/L Normal 9-18 [facility] Comment on above: Order Comment: Speci men Type: BLOOD SPECIMENOrdering Facility: [facility] Address: [address] [place] [address] Performed By: #### 2 4323-8 ####[facility] LABCLIA [id number] [place] [address] [place] AST [Catalytic activity/Vol] 16 U/L Normal 14-40 [facility] Comment on above: Order Comment: Speci men Type: BLOOD SPECIMENOrdering Facility: [facility] Address: [address] [place] [address] Performed By: #### 2 4323-8 ####[facility] LABCLIA [id number] [place] [address] [place] Bilirubin [Mass/Vol] 0.5 mg/dL Normal 0.2-1.3 [facility] Comment on above: Order Comment: Speci men Type: BLOOD SPECIMENOrdering Facility: [facility] Address: [address] Performed By: #### 2 4323-8 ####[facility] LABCLIA [id number] [place] [address] [place] Calcium [Mass/Vol] 8.7 mg/dL Normal 8.5-10.2 [facility] Comment on above: Order Comment: Speci men Type: BLOOD SPECIMENOrdering Facility: [facility] Address: [address] Performed By: #### 2 4323-8 ####[facility] LABCLIA [id number] [place] [address] [place] Chloride [Moles/Vol] 105 mmol/L Normal 97-105 [facility] Comment on above: Order Comment: Speci men Type: BLOOD SPECIMENOrdering Facility: [facility] Address: [address] Performed By: #### 2 4323-8 ####[facility] LABCLIA [id number] [place] [address] [place] CO2 [Moles/Vol] 24 mmol/L Normal 22-30 [facility] Comment on above: Order Comment: Speci men Type: BLOOD SPECIMENOrdering Facility: [facility] Address: [address] Performed By: #### 2 4323-8 ####[facility] LABCLIA [id number] [place] [address] [place] Creatinine [Mass/Vol] 0.78 mg/dL Normal 0.73-1.22 [facility] Comment on above: Order Comment: Speci men Type: BLOOD SPECIMENOrdering Facility: [facility] Address: [address] Performed By: #### 2 4323-8 ####[facility] LABCLIA [id number] [place] [address] [place] ESTIMATED GLOMERULAR FILTRATION RATE 92 mL/min/1.73m??? Normal >=60 [facility] Comment on above: Order Comment: Portia tay Type: BLOOD SPECIMENOrdering Facility: [facility] Address: [address] [place] [address] Result Comment: Mariaelena mated Glomerular Filtration Rate [...] actual GFR. Performed By: #### 2 4323-8 ####[facility] LABIA [id number] [place] [address] [place] Glucose [Mass/Vol] 217 mg/dL High 74-99 [facility] Comment on above: Order Comment: Portia tay Type: BLOOD SPECIMENOrdering Facility: [facility] Address: [address] [place] [address] Result Comment: The [place] Diabetes Association (ADA) provides guidance for cutoff [...] Standards of Medical Care in Diabetes 2016, [place] [employer]. Diabetes Care. 2016.39(Suppl 1). Performed By: #### 2 4323-8 ####[facility] LABIA [id number] [place] [address] [place] Potassium [Moles/Vol] 3.9 mmol/L Normal 3.7-5.1 [facility] Comment on above: Order Comment: Speci men Type: BLOOD SPECIMENOrdering Facility: [facility] Address: [address] Performed By: #### 2 4323-8 ####[facility] LABCLIA [id number] [place] [address] [place] Protein [Mass/Vol] 5.6 g/dL Low 6.3-8.0 [facility] Comment on above: Order Comment: Speci men Type: BLOOD SPECIMENOrdering Facility: [facility] Address: [address] [place] [address] Performed By: #### 2 4323-8 ####[facility] LABCLIA [id number] [place] [address] [place] Sodium [Moles/Vol] 139 mmol/L Normal 136-144 [facility] Comment on above: Order Comment: Speci men Type: BLOOD SPECIMENOrdering Facility: [facility] Address: [address] [place] [address] Performed By: #### 2 4323-8 ####[facility] LABCLIA [id number] [place] [address] [place] Urea nitrogen [Mass/Vol] 14 mg/dL Normal 9-24 [facility] Comment on above: Order Comment: Speci men Type: BLOOD SPECIMENOrdering Facility: [facility] Address: [address] Performed By: #### 2 4323-8 ####[facility] LABCLIA [id number] [place] [address] [place] Albumin [Mass/Vol] 3.6 g/dL Low 3.9-4.9 [facility] Comment on above: Order Comment: Speci men Type: BLOOD SPECIMENOrdering Facility: [facility] Address: [address] [place], [place] [address] Performed By: #### 2 777-1, 24477-6, ####[facility] LABCLIA [id number] [place] [address] [place] ALP [Catalytic activity/Vol] 98 U/L Normal 38-113 [facility] Comment on above: Order Comment: Speci men Type: BLOOD SPECIMENOrdering Facility: [facility] Address: [address] Performed By: #### 2 777-1, 16202-3, ####[facility] LABCLIA [id number] [place] [address] [place] ALT [Catalytic activity/Vol] 19 U/L Normal 10-54 [facility] Comment on above: Order Comment: Speci men Type: BLOOD SPECIMENOrdering Facility: [facility] Address: [address] Performed By: #### 2 777-1, , ####[facility] LABCLIA [id number] [place] [address] [place] Anion gap [Moles/Vol] 12 mmol/L Normal 9-18 [facility] Comment on above: Order Comment: Speci men Type: BLOOD SPECIMENOrdering Facility: [facility] Address: [address] [place] [address] Performed By: #### 2 777-1, 08716-4, ####[facility] LABIA [id number] [place] [id number] [place] AST [Catalytic activity/Vol] 18 U/L Normal 14-40 [facility] Comment on above: Order Comment: Speci men Type: BLOOD SPECIMENOrdering Facility: [facility] Address: [address] Performed By: #### 2 777-1, 16794-3, ####[facility] LABCLIA [id number] [place] [address] [place] Bilirubin [Mass/Vol] 0.7 mg/dL Normal 0.2-1.3 [facility] Comment on above: Order Comment: Speci men Type: BLOOD SPECIMENOrdering Facility: [facility] Address: [address] Performed By: #### 2 777-1, , ####[facility] LABCLIA [id number] [place] [address] [place] Calcium [Mass/Vol] 8.3 mg/dL Low 8.5-10.2 [facility] Comment on above: Order Comment: Speci men Type: BLOOD SPECIMENOrdering Facility: [facility] Address: [address] [place], [place] [address] Performed By: #### 2 777-1, , ####[facility] LABCLIA [id number] [place] [address] [place] Chloride [Moles/Vol] 102 mmol/L Normal 97-105 [facility] Comment on above: Order Comment: Speci men Type: BLOOD SPECIMENOrdering Facility: [facility] Address: [address] [place] [address] Performed By: #### 2 777-1, , ####[facility] LABCLIA [id number] [place] [id number] [place] CO2 [Moles/Vol] 22 mmol/L Normal 22-30 [facility] Comment on above: Order Comment: Speci men Type: BLOOD SPECIMENOrdering Facility: [facility] Address: [address] [place] [address] Performed By: #### 2 777-1, , ####[facility] LABCLIA [id number] [place] [address] [place] Creatinine [Mass/Vol] 0.69 mg/dL Low 0.73-1.22 [facility] Comment on above: Order Comment: Portia tay Type: BLOOD SPECIMENOrdering Facility: [facility] Address: [address] [place] [address] Performed By: #### 2 777-1, , ####[facility] LABIA [id number] [place] [address] [place] ESTIMATED GLOMERULAR FILTRATION RATE 95 mL/min/1.73m??? Normal >=60 [facility] Comment on above: Order Comment: Portia tay Type: BLOOD SPECIMENOrdering Facility: [facility] Address: [address] [place] [address] Result Comment: Mariaelena mated Glomerular Filtration Rate [...] GFR. Performed By: #### 2 777-1, , ####[facility] LABIA [id number] [place] [address] [place] Glucose [Mass/Vol] 202 mg/dL High 74-99 [facility] Comment on above: Order Comment: Portia tay Type: BLOOD SPECIMENOrdering Facility: [facility] Address: [address] [place] [address] Result Comment: The [place] Diabetes [employer] (ADA) provides guidance for cutoff [...] Standards of Medical Care in Diabetes 2016, [place] [employer]. Diabetes Care. 2016.39(Suppl 1). Performed By: #### 2 777-1, 21022-0, ####[facility] LABCLIA [id number] [place] [address] [place] Potassium [Moles/Vol] 4.1 mmol/L Normal 3.7-5.1 [facility] Comment on above: Order Comment: Speci men Type: BLOOD SPECIMENOrdering Facility: [facility] Address: [address] [place] [address] Performed By: #### 2 777-1, , ####[facility] LABCLIA [id number] [place] [address] [place] Protein [Mass/Vol] 5.5 g/dL Low 6.3-8.0 [facility] Comment on above: Order Comment: Speci men Type: BLOOD SPECIMENOrdering Facility: [facility] Address: [address] Performed By: #### 2 777-1, , ####[facility] LABCLIA [id number] [place] [address] [place] Sodium [Moles/Vol] 136 mmol/L Normal 136-144 [facility] Comment on above: Order Comment: Speci men Type: BLOOD SPECIMENOrdering Facility: [facility] Address: [address] [place] [address] Performed By: #### 2 777-1, , ####[facility] LABCLIA [id number] [place] [id number] [place] Urea nitrogen [Mass/Vol] 14 mg/dL Normal 9-24 [facility] Comment on above: Order Comment: Speci men Type: BLOOD SPECIMENOrdering Facility: [facility] Address: [address] [place] [address] Performed By: #### 2 777-1, 97472-7, 88509-0 ####[facility] LABCLIA [id number] [place] [address] [place] Albumin [Mass/Vol] 3.0 g/dL Low 3.9-4.9 [facility] Comment on above: Order Comment: Speci men Type: BLOOD SPECIMENOrdering Facility: [facility] Address: [address] [place] [address] Result Comment: Resu lt rechecked. Performed By: #### 1 9123-9, 2777-1, 99976-0 ####[facility] LABCLIA [id number] [place] [address] [place] ALP [Catalytic activity/Vol] 88 U/L Normal 38-113 [facility] Comment on above: Order Comment: Speci men Type: BLOOD SPECIMENOrdering Facility: [facility] Address: [address] [place] [address] Performed By: #### 1 9123-9, 2777-1, 13767-5 ####[facility] LABCLIA [id number] [place] [address] [place] ALT [Catalytic activity/Vol] 15 U/L Normal 10-54 [facility] Comment on above: Order Comment: Speci men Type: BLOOD SPECIMENOrdering Facility: [facility] Address: [address] [place] [address] Performed By: #### 1 9123-9, 277-1, 06634-9 ####[facility] LABCLIA [id number] [place] [id number] [place] Anion gap [Moles/Vol] 14 mmol/L Normal 9-18 [facility] Comment on above: Order Comment: Speci men Type: BLOOD SPECIMENOrdering Facility: [facility] Address: [address] [place] [address] Performed By: #### 1 9123-9, 2776-02, ####[facility] LABCLIA [id number] [place] [address] [place] AST [Catalytic activity/Vol] 16 U/L Normal 14-40 [facility] Comment on above: Order Comment: Speci men Type: BLOOD SPECIMENOrdering Facility: [facility] Address: [address] [place] [address] Performed By: #### 1 9123-9, 2776-02, ####[facility] LABCLIA [id number] [place] [address] [place] Bilirubin [Mass/Vol] 0.6 mg/dL Normal 0.2-1.3 [facility] Comment on above: Order Comment: Speci men Type: BLOOD SPECIMENOrdering Facility: [facility] Address: [address] [place] [address] Performed By: #### 1 9123-9, 2776-02, ####[facility] LABCLIA [id number] [place] [address] [place] Calcium [Mass/Vol] 8.4 mg/dL Low 8.5-10.2 [facility] Comment on above: Order Comment: Speci men Type: BLOOD SPECIMENOrdering Facility: [facility] Address: [address] [place] [address] Performed By: #### 1 9123-9, 2776-02, ####[facility] LABCLIA [id number] [place] [address] [place] Chloride [Moles/Vol] 103 mmol/L Normal 97-105 [facility] Comment on above: Order Comment: Speci men Type: BLOOD SPECIMENOrdering Facility: [facility] Address: [address] [place] [address] Performed By: #### 1 9123-9, 27708-18, ####[facility] LABCLIA [id number] [place] [address] [place] CO2 [Moles/Vol] 20 mmol/L Low 22-30 [facility] Comment on above: Order Comment: Speci men Type: BLOOD SPECIMENOrdering Facility: [facility] Address: [address] [place] [address] Performed By: #### 1 9123-9, 2776-02, ####[facility] LABCLIA [id number] [place] [address] [place] Creatinine [Mass/Vol] 0.64 mg/dL Low 0.73-1.22 [facility] Comment on above: Order Comment: Speci men Type: BLOOD SPECIMENOrdering Facility: [facility] Address: [address] [place] [address] Performed By: #### 1 9123-9, 2776-02, ####[facility] LABCLIA [id number] [place] [address] [place] ESTIMATED GLOMERULAR FILTRATION RATE 98 mL/min/1.73m??? Normal >=60 [facility] Comment on above: Order Comment: Speci men Type: BLOOD SPECIMENOrdering Facility: [facility] Address: [address] [place] [address] Result Comment: Mariaelena mated Glomerular Filtration Rate [...] actual GFR. Performed By: #### 1 9123-9, 27708-18, 14245-3 ####[facility] LABCLIA [id number] [place] [address] [place] Glucose [Mass/Vol] 186 mg/dL High 74-99 [facility] Comment on above: Order Comment: Speci men Type: BLOOD SPECIMENOrdering Facility: [facility] Address: [address] [place] [address] Result Comment: The [place] [employer] (ADA) provides guidance for cutoff [...] Standards of Medical Care in Diabetes 2016, [place] [employer]. Diabetes Care. 2016.39(Suppl 1). Performed By: #### 1 9123-9, 2777-, 04749-0 ####[facility] LABIA [id number] [place] [address] [place] Potassium [Moles/Vol] 4.0 mmol/L Normal 3.7-5.1 [facility] Comment on above: Order Comment: Janiei men Type: BLOOD SPECIMENOrdering Facility: [facility] Address: [address] [place], [place] [address] Performed By: #### 1 9123-9, 2777-, 25736-3 ####[facility] LABIA [id number] [place] [address] [place] Protein [Mass/Vol] 5.1 g/dL Low 6.3-8.0 [facility] Comment on above: Order Comment: Speci men Type: BLOOD SPECIMENOrdering Facility: [facility] Address: [address] [place], [place] [address] Performed By: #### 1 9123-9, 2777-1, 81575-9 ####[facility] LABCLIA [id number] [address] [address] [place] Sodium [Moles/Vol] 137 mmol/L Normal 136-144 [facility] Comment on above: Order Comment: Speci men Type: BLOOD SPECIMENOrdering Facility: [facility] Address: [address] [place] [address] [place] [address] Performed By: #### 1 9123-9, 2777-1, 01872-5 ####[facility] LABIA [id number] [place] [id number] [place] Urea nitrogen [Mass/Vol] 12 mg/dL Normal 9-24 [facility] Comment on above: Order Comment: Speci men Type: BLOOD SPECIMENOrdering Facility: [facility] Address: [facility] [address] Performed By: #### 1 9123-9, 2777-1, 72444-3 ####[facility] LABIA [id number] [place] [id number] [place] ECG COMPLETEon 08-29-2022 ECG COMPLETE Ventricular Rate : 7 0 BPM Atrial Rate : 70 BPM P-R Interval : 186 ms QRS Duration : 102 ms Q-T Interval : 454 ms QTC Calculation(Bazett) : 490 ms Calculated P [place] : 44 degrees Calculated R [place] : -26 degrees Calculated T [place] : -27 degrees SINUS RHYTHM WITH PREMATURE ATRIAL COMPLEXES NONSPECIFIC ST ABNORMALITY ABNORMAL ECG Confirmed by ERICK STEWARD MD (65) on 08/31/2022 7:45:00 AM NAME : OLAF BRIONES PID : [id number] : 1945 Gender : Male Race : Unknown ORD : [id number] Procedure Date : Aug 29 2022 00:07:53 Edit Date : Aug 31 2022 07:45:03 Diagnosis: SINUS RHYTHM WITH PREMATURE ATRIAL COMPLEXES NONSPECIFIC ST ABNORMALITY ABNORMAL ECG Confirmed by ERICK STEWARD MD (65) on 08/31/2022 7:45:00 AM Test Reason : Post-OP Location : 154 : G54 G054-06 Overread By : ERICK STEWARD MD Edited By : ERICK STEWARD MD Referred By : , Acquired by : NAHOMI RINALDI [facility] Magnesium SerPl-mCncon 08-29 Magnesium [Mass/Vol] 2.1 mg/dL Normal 1.7-2.3 [facility] Comment on above: Order Comment: Portia tay Type: BLOOD SPECIMENOrdering Facility: [facility] Address: [address] [place] [address] Performed By: #### 2 777-1, 05504-1, 74067-2 ####[facility] [id number] [place] [address] [place] Magnesium [Mass/Vol] 1.8 mg/dL Normal 1.7-2.3 [facility] Comment on above: Order Comment: Portia tay Type: BLOOD SPECIMENOrdering Facility: [facility] Address: [address] [place] [address] Performed By: #### 1 9123-9, 2777-1, 89549-5 ####[facility] [id number] [address] [place] PT panel Coag (PPP)on 2022 INR Coag (PPP) [Relative time] 1.0 {INR} Normal 0.9-1.3 [facility] Comment on above: Order Comment: Portia tay Type: BLOOD SPECIMENOrdering Facility: [facility] Address: [address] [place] [address] Result Comment: Mago min K Antagonist (VKA) Therapeutic Range: INR 2 to 3 (Target INR of 2.5) Note: For patients treated with VKA drugs, such as warfarin, the [place] [employer] 2012 Guideline recommends [...] Chest 2012, 141:7S-47S Daniel RA, et al. [facility] 2017, 70: 252-289 Performed By: #### 3 4528-0, 19401-7 ####[facility] LABCLIA [id number] [place] [address] [place] PT Coag (PPP) [Time] 10.7 s Normal 9.7-13.0 [facility] Comment on above: Order Comment: Speci men Type: BLOOD SPECIMENOrdering Facility: [facility] Address: [address] [place] [address] Performed By: #### 3 4528-0, 80696-3 ####[facility] LABIA [id number] [place] [address] [place] INR Coag (PPP) [Relative time] 1.1 {INR} Normal 0.9-1.3 [facility] Comment on above: Order Comment: Speci men Type: BLOOD SPECIMENOrdering Facility: [facility] Address: [address] [place] [address] Result Comment: Mago min K Antagonist (VKA) Therapeutic Range: INR 2 to 3 (Target INR of 2.5) Note: For patients treated with VKA drugs, such as warfarin, the [place] [employer] 2012 Guideline recommends [...] Chest 2012, 141:7S-47S Daniel RA, et al. [facility] 2017, 70: 252-289 Performed By: #### 3 4528-0, 17914-2 ####[facility] LABCLIA [id number] [address] [place] PT Coag (PPP) [Time] 11.2 s Normal 9.7-13.0 [facility] Comment on above: Order Comment: Speci men Type: BLOOD SPECIMENOrdering Facility: [facility] Address: [address] [place] [address] Performed By: #### 3 4528-0, 01889-1 ####[facility] LABIA [id number] [address] [place] Phosphate SerPl-mCncon 08-29 Phosphate [Mass/Vol] 4.9 mg/dL High 2.7-4.8 [facility] Comment on above: Order Comment: Speci men Type: BLOOD SPECIMENOrdering Facility: [facility] Address: [address] [place] [address] Performed By: #### 2 777-1, 20018-7, 58237-8 ####[facility] LABIA [id number] [address] STATES OF [facility] Phosphate [Mass/Vol] 4.2 mg/dL Normal 2.7-4.8 [facility] Comment on above: Order Comment: Speci men Type: BLOOD SPECIMENOrdering Facility: [facility] Address: [address] [place] [address] Performed By: #### 1 9123-9, 2777-1, 73787-5 ####[facility] LABCLIA [id number] [place] [id number] [place] THERAPY NTon 08-29-2022 THERAPY NT HNO ID: [id number] Author: Jenna Duggan, PT Service: Physical Therapy Author Type: Physical Therapist Type: Therapy (PT/OT/Speech/Resp) Filed: 08/29/2022 2:51 PM Note Text: Physical Therapy Evaluation SERVICE DATE: 08/29/2022 SERVICE TIME: 1403 to 1438 ROOM: [place] [address] Recommended Discharge Disposition: Home Anticipated Discharge Needs: [...] DM, recent STEMI (08/20/2022), transferred from [facility] for gross hematuria. Currently with 18Fr 3-way catheter on CBI. 08/28/22: s/p cystoscopy, clot evacuation, cystolitholapaxy, TURP. Admitted to SICU postoperatively due to pressor requirements and risk of hyponatremia due to length of TURP. 22Fr [address] hernandez placed introp, on traction and CBI. Reason for Hospital Admission: Pt 77y/o male transferred from [facility] for gross hematuria secondary to recent STEMI [...] Reduced mobility-other Interventions Provided: Evaluation, Therapeutic Activity (63937), Gait Training (34788) $ Evaluation-Moderate (12734) Billed Units: 1 unit Therapeutic Activity (72436) Treatment Minutes: 7 $ Therapeutic Activity (49089) Billed Units: 0 units Gait Training (73581) Treatment Minutes: 13 $ Gait Training (12506) Billed Units: 1 unit Training AND Education Provided in: Benefits of In-Hospital Mobility, Bed Mobility, Energy Conservation, Equipment, Exer (more content not included)... Normal [facility] THERAPY NT HNO ID: [id number] Author: Alia Smith, DANYELLR/Cherry Service: Occupational Therapy Author Type: Occupational Therapist Type: Therapy (PT/OT/Speech/Resp) Filed: 08/29/2022 11:06 AM Note Text: Occupational Therapy Evaluation SERVICE DATE: 08/29/2022 SERVICE TIME: 849 to 920 ROOM: [place] [address] Recommended Discharge Disposition: Home Anticipated Discharge Needs: [...] DM, recent STEMI (08/20/2022), transferred from [facility] for gross hematuria. Currently with 18Fr 3-way catheter on CBI. 08/28/22: s/p cystoscopy, clot evacuation, cystolitholapaxy, TURP. Admitted to SICU postoperatively due to pressor requirements and risk of hyponatremia due to length of TURP. 22Fr [address] hernandez placed introp, on traction and CBI. 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 Normal [facility] aPTT PPPon 08-29-2022 aPTT Coag (PPP) [Time] 21.0 s Low 23.0-32.4 [facility] Comment on above: Order Comment: Speci men Type: BLOOD SPECIMENOrdering Facility: [facility] Address: [address] [place] [address] Performed By: #### 3 4528-0, 10709-5 ####[facility] LABCLIA [id number] [address] STATES OF [facility] aPTT Coag (PPP) [Time] 26.1 s Normal 23.0-32.4 [facility] Comment on above: Order Comment: Speci men Type: BLOOD SPECIMENOrdering Facility: [facility] Address: [address] [place] [address] Performed By: #### 3 4528-0, 53249-0 ####[facility] LABCLIA [id number] [place] [address] [place] ANES POSTPROC EVALon 023 ANES POSTPROC EVAL HNO ID: [id number] Author: Michelle Day MD Service: ? Author Type: Anesthesiologist Type: Anesthesia Postprocedure Evaluation Filed: 08/28/2022 8:38 PM Note Text: POST ANESTHESIA EVALUATION NOTE : 1945 Procedure Summary Date: 08/28/22 Room / Location: [address] Anesthesia Start: 1752 Anesthesia Stop: 2030 [...] August 28, 2022 TIME: 8:37 PM CSN: [id number] Normal [facility] ANES PRE-OPon 08-28-2022 ANES PRE-OP HNO ID: [id number] Author: Weston Avila MD Service: ? Author Type: Anesthesiologist Type: Anesthesia Preprocedure Evaluation Filed: 08/28/2022 6:10 PM Note Text: ANESTHESIOLOGY DAY OF SURGERY NOTE : 1945 Procedure Information Anesthesia Start Date/Time: 08/28/221752 Procedure: CYSTOURETHROSCOPY FULGURATION BLADDER (Bladder) Location: MAIN OR[facility] Surgeons: David Andrews MD Estimated body mass index is 25.23 kg/m? as calculated from the following: Height as of this encounter: 173 cm (5' 8.11 ). Weight as of this encounter: 75.5 kg (166 lb 7.2 oz). Most recent hematocrit and potassium results: Hematocrit 32.6 08/28/2022 Potassium 4.0 08/28/2022 Relevant Problems CARDIO (+) Coronary artery disease involving [place] coronary artery of [place] heart without angina pectoris (+) Myocardial infarction [...] and consent discussed: yes. Patient / Responsible [employer] agrees to proceed: yes Patient / [...] 78 08/28/221752 Resp Temp SpO2 99 % 08/28/22 175 Facility-Administered Medications as of 08/28/2022 Medication Dose [...] ANES PREOPon 08-28-2022 ANES PREOP HNO ID: [id number] Author: Jaycee Bernard MD Service: Anesthesiology Author Type: Resident Type: Anesthesia PreOp Filed: 08/28/2022 1:13 PM Note Text: ----- Attestation signed by Grady Church MD at 08/28/2022 3:47 PM I reviewed the pertinent patient history and agree with the resident's recommended plan for care. Grady Church MD ----- GENERAL ANESTHESIA PREOPERATIVE ASSESSMENT SERVICE DATE: 08/28/2022 SERVICE TIME: 12 PM Subjective CHIEF COMPLAINT: No chief complaint on file. 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 RESP: no history of pulmonary disease, no smoking history CARD: history of HTN on norvasc and coreg; and history of past AR s/p JUHI (08/20/22); currently no chest pain [...] NOTon 08-28-2022 BRIEF OP NOT HNO ID: [id number] Author: Gt Mcgowan MD Service: Urology Author Type: Resident Type: Brief Op Note Filed: 08/28/2022 7:50 PM Note Text: BRIEF OP NOTE LOG ID: [id number] Surgery/Procedure Date: 08/28/2022 Incision/Procedure Start Time: 6:17 PM Incision Close/Procedure End Time: Surgeon(s)/Proceduralist( s) and Gameplay Engineer(s): Surgeon(s) and Role: * David Andrews MD [...] 2022 TIME: 7:48 PM PAGER/CONTACT #: [phone] Post-op Plan: To SICU Normal [facility] Basic metabolic 2000 panelon 08-28-2022 Anion gap [Moles/Vol] 9 mmol/L Normal 9-18 [facility] Comment on above: Order Comment: Speci men Type: BLOOD SPECIMENOrdering Facility: [facility] Address: [address] [place] [address] Performed By: #### 2 4321-2 ####[facility] LABCLIA [id number] [place] [address] [place] Calcium [Mass/Vol] 8.8 mg/dL Normal 8.5-10.2 [facility] Comment on above: Order Comment: Speci men Type: BLOOD SPECIMENOrdering Facility: [facility] Address: [address] [place] [address] Performed By: #### 2 4321-2 ####[facility] LABCLIA [id number] [place] [address] [place] Chloride [Moles/Vol] 108 mmol/L High 97-105 [facility] Comment on above: Order Comment: Speci men Type: BLOOD SPECIMENOrdering Facility: [facility] Address: [address] [place] [place] [address] Performed By: #### 2 4321-2 ####[facility] LABCLIA [id number] [place] [address] [place] CO2 [Moles/Vol] 24 mmol/L Normal 22-30 [facility] Comment on above: Order Comment: Speci men Type: BLOOD SPECIMENOrdering Facility: [facility] Address: [address] Performed By: #### 2 4321-2 ####[facility] LABCLIA [id number] [place] [address] [place] Creatinine [Mass/Vol] 0.79 mg/dL Normal 0.73-1.22 [facility] Comment on above: Order Comment: Speci men Type: BLOOD SPECIMENOrdering Facility: [facility] Address: [address] [place] [address] Performed By: #### 2 4321-2 ####[facility] LABCLIA [id number] [place] [address] [place] ESTIMATED GLOMERULAR FILTRATION RATE 91 mL/min/1.73m??? Normal >=60 [facility] Comment on above: Order Comment: Portia tay Type: BLOOD SPECIMENOrdering Facility: [facility] Address: [address] [place] [address] Result Comment: Mariaelena mated Glomerular Filtration Rate [...] actual GFR. Performed By: #### 2 4321-2 ####[facility] LABCLIA [id number] [place] [address] [place] Glucose [Mass/Vol] 137 mg/dL High 74-99 [facility] Comment on above: Order Comment: Portia tay Type: BLOOD SPECIMENOrdering Facility: [facility] Address: [address] [place] [address] Result Comment: The [place] Diabetes Association (ADA) provides guidance for cutoff [...] Standards of Medical Care in Diabetes 2016, [place] [employer] Association. Diabetes Care. 2016.39(Suppl 1). Performed By: #### 2 4321-2 ####[facility] LABCLIA [id number] [place] [address] [place] Potassium [Moles/Vol] 4.0 mmol/L Normal 3.7-5.1 [facility] Comment on above: Order Comment: Speci men Type: BLOOD SPECIMENOrdering Facility: [facility] Address: [address] [place] [address] Performed By: #### 2 4321-2 ####[facility] LABCLIA [id number] [address] [place] Sodium [Moles/Vol] 141 mmol/L Normal 136-144 [facility] Comment on above: Order Comment: Speci men Type: BLOOD SPECIMENOrdering Facility: [facility] Address: [address] [place] [address] Performed By: #### 2 4321-2 ####[facility] LABIA [id number] [address] [place] Urea nitrogen [Mass/Vol] 18 mg/dL Normal 9-24 [facility] Comment on above: Order Comment: Speci men Type: BLOOD SPECIMENOrdering Facility: [facility] Address: [address] [place] [address] Performed By: #### 2 4321-2 ####[facility] LABIA [id number] [address] CALCULI ANALYSISon 3 Calculus analysis [Interp] Normal [facility] Comment on above: Order Comment: Speci men Type: CALCULUS SPECIMENOrdering Facility: [facility] Address: [address] [place] [address] Result Comment: This test was developed and its performance characteristics determined by [facility]'s Olaf JAltagracia [facility] Pathology and Laboratory Medicine [place] ([facility]). It has not been cleared or approved by the FDA. [facility] is regulated under CLIA as qualified to perform high-complexity testing. This test is used for clinical purposes. It should not be regarded as investigational or for research. Performed By: #### C SA ####[facility] LABCLIA [id number] [address] [place] CALCULUS COLOR BROWN Normal [facility] Comment on above: Order Comment: Speci men Type: CALCULUS SPECIMENOrdering Facility: [facility] Address: [address] [place] [address] Performed By: #### C SA ####[facility] LABCLIA [id number] [address] [place] CALCULUS COMPOSITION 1 50% Calcium Oxala te Monohydrate Normal [facility] Comment on above: Order Comment: Speci men Type: CALCULUS SPECIMENOrdering Facility: [facility] Address: [address] [place] [address] Performed By: #### C SA ####[facility] LABIA [id number] [address] CALCULUS COMPOSITION 2 40% Calcium Oxala te Dihydrate Normal [facility] Comment on above: Order Comment: Speci men Type: CALCULUS SPECIMENOrdering Facility: [facility] Address: [address] [place] [address] Performed By: #### C SA ####[facility] LABIA [id number] [address] CALCULUS COMPOSITION 3 10% Minor Components Normal [facility] Comment on above: Order Comment: Speci men Type: CALCULUS SPECIMENOrdering Facility: [facility] Address: [address] [place], [place] [id number] Performed By: #### C SA ####[facility] LABCLIA [id number] [address] [place] CALCULUS SIZE AND WT 0.4 X 0.3 X 0.1 CM 0.0163 GRAMS Normal [facility] Comment on above: Order Comment: Speci men Type: CALCULUS SPECIMENOrdering Facility: [facility] Address: [address] [place] [address] Performed By: #### C SA ####[facility] LABCLIA [id number] [address] [place] CALCULUS TYPE Calculus, CALCULI/CALCULUS Normal [facility] Comment on above: Order Comment: Speci men Type: CALCULUS SPECIMENOrdering Facility: [facility] Address: [address] [place] [address] Performed By: #### C SA ####[facility] LABCLIA [id number] [address] [place] CBC panel Auto (Bld)on 08-28 Erythrocyte distribution width (RBC) [Ratio] 12.7 % Normal 11.5-15.0 [facility] Comment on above: Order Comment: Speci men Type: BLOOD SPECIMENOrdering Facility: [facility] Address: [address] [place] [address] Performed By: #### 5 8410-2 ####[facility] LABIA [id number] [address] [place] Hematocrit (Bld) [Volume fraction] 35.7 % Low 39.0-51.0 [facility] Comment on above: Order Comment: Speci men Type: BLOOD SPECIMENOrdering Facility: [facility] Address: [address] [place] [address] Performed By: #### 5 8410-2 ####[facility] LABCLIA [id number] [address] [place] Hemoglobin (Bld) [Mass/Vol] 12.1 g/dL Low 13.0-17.0 [facility] Comment on above: Order Comment: Speci men Type: BLOOD SPECIMENOrdering Facility: [facility] Address: [address] [place] [address] Performed By: #### 5 8410-2 ####[facility] LABCLIA [id number] [place] [address] [place] MCH (RBC) [Entitic mass] 31.8 pg Normal 26.0-34.0 [facility] Comment on above: Order Comment: Speci men Type: BLOOD SPECIMENOrdering Facility: [facility] Address: [address] [place], [place] [id number] Performed By: #### 5 8410-2 ####[facility] LABIA [id number] [place] [address] [place] MCHC (RBC) [Mass/Vol] 33.9 g/dL Normal 30.5-36.0 [facility] Comment on above: Order Comment: Speci men Type: BLOOD SPECIMENOrdering Facility: [facility] Address: [address] [place] [id number] Performed By: #### 5 8410-2 ####[facility] [id number] [place] [address] [place] MCV (RBC) [Entitic vol] 93.7 fL Normal 80.0-100.0 [facility] Comment on above: Order Comment: Speci men Type: BLOOD SPECIMENOrdering Facility: [facility] Address: [address] [place], [place] [id number] Performed By: #### 5 8410-2 ####[facility] LABIA [id number] [place] [address] [place] Nucleated RBC (Bld) [#/Vol] 10*3/uL Normal <0.01 [facility] Comment on above: Order Comment: Speci men Type: BLOOD SPECIMENOrdering Facility: [facility] Address: [address] Performed By: #### 5 8410-2 ####[facility] LABIA [id number] [place] [address] [place] Platelet mean volume (Bld) [Entitic vol] 11.3 fL Normal 9.0-12.7 [facility] Comment on above: Order Comment: Speci men Type: BLOOD SPECIMENOrdering Facility: [facility] Address: [address] [place] [address] Performed By: #### 5 8410-2 ####[facility] LABCLIA [id number] [place] [address] [place] Platelets (Bld) [#/Vol] 179 10*3/uL Normal 150-400 [facility] Comment on above: Order Comment: Speci men Type: BLOOD SPECIMENOrdering Facility: [facility] Address: [address] Performed By: #### 5 8410-2 ####[facility] LABIA [id number] [place] [address] [place] [facility] [place] RBC (Bld) [#/Vol] 3.81 10*6/uL Low 4.20-6.00 [facility] Comment on above: Order Comment: Speci men Type: BLOOD SPECIMENOrdering Facility: [facility] Address: [address] Performed By: #### 5 8410-2 ####[facility] LABIA [id number] [place] [address] [place] WBC (Bld) [#/Vol] 16.02 10*3/uL High 3.70-11.00 [facility] Comment on above: Order Comment: Speci men Type: BLOOD SPECIMENOrdering Facility: [facility] Address: [address] [place] [address] Performed By: #### 5 8410-2 ####[facility] LABIA [id number] [place] [address] [place] Erythrocyte distribution width (RBC) [Ratio] 12.8 % Normal 11.5-15.0 [facility] Comment on above: Order Comment: Speci men Type: BLOOD SPECIMENOrdering Facility: [facility] Address: [address] Performed By: #### 5 8410-2 ####[facility] LABIA [id number] [place] [address] [place] Hematocrit (Bld) [Volume fraction] 32.6 % Low 39.0-51.0 [facility] Comment on above: Order Comment: Speci men Type: BLOOD SPECIMENOrdering Facility: [facility] Address: [address] [place] [address] Performed By: #### 5 8410-2 ####[facility] [id number] [place] [address] [place] Hemoglobin (Bld) [Mass/Vol] 11.1 g/dL Low 13.0-17.0 [facility] Comment on above: Order Comment: Speci men Type: BLOOD SPECIMENOrdering Facility: [facility] Address: [address] [place] [address] Performed By: #### 5 8410-2 ####[facility] [id number] [address] [place] MCH (RBC) [Entitic mass] 31.6 pg Normal 26.0-34.0 [facility] Comment on above: Order Comment: Speci men Type: BLOOD SPECIMENOrdering Facility: [facility] Address: [address] [place] [address] Performed By: #### 5 8410-2 ####[facility] [id number] [place] [address] [place] MCHC (RBC) [Mass/Vol] 34.0 g/dL Normal 30.5-36.0 [facility] Comment on above: Order Comment: Speci men Type: BLOOD SPECIMENOrdering Facility: [facility] Address: [address] [place] [address] Performed By: #### 5 8410-2 ####[facility] [id number] [place] [address] [place] MCV (RBC) [Entitic vol] 92.9 fL Normal 80.0-100.0 [facility] Comment on above: Order Comment: Speci men Type: BLOOD SPECIMENOrdering Facility: [facility] Address: [address] [place], [place] [id number] Performed By: #### 5 8410-2 ####[facility] LABCLIA [id number] [place] [address] [place] Nucleated RBC (Bld) [#/Vol] 10*3/uL Normal <0.01 [facility] Comment on above: Order Comment: Speci men Type: BLOOD SPECIMENOrdering Facility: [facility] Address: [address] [place] [phone] Performed By: #### 5 8410-2 ####[facility] LABIA [id number] [place] [address] [place] Platelet mean volume (Bld) [Entitic vol] 11.2 fL Normal 9.0-12.7 [facility] Comment on above: Order Comment: Speci men Type: BLOOD SPECIMENOrdering Facility: [facility] Address: [address] [place] [id number] Performed By: #### 5 8410-2 ####[facility] LABIA [id number] [place] [address] [place] Platelets (Bld) [#/Vol] 172 10*3/uL Normal 150-400 [facility] Comment on above: Order Comment: Speci men Type: BLOOD SPECIMENOrdering Facility: [facility] Address: [address] [place] [address] Performed By: #### 5 8410-2 ####[facility] LABCLIA [id number] [place] [address] [place] RBC (Bld) [#/Vol] 3.51 10*6/uL Low 4.20-6.00 [facility] Comment on above: Order Comment: Speci men Type: BLOOD SPECIMENOrdering Facility: [facility] Address: [address] [id number] Performed By: #### 5 8410-2 ####[facility] LABIA [id number] [address] OF [facility] WBC (Bld) [#/Vol] 11.53 10*3/uL High 3.70-11.00 [facility] Comment on above: Order Comment: Speci men Type: BLOOD SPECIMENOrdering Facility: [facility] Address: [address] [id number] Performed By: #### 5 8410-2 ####[facility] LABIA [id number] [address] [facility] CONSULT PROGon 08-28-2022 CONSULT PROG HNO ID: [id number] Author: Uzma Bates MD Service: Cardiovascular Medicine [...] 08/28/2022 1045 Gross per 24 hour Intake 41643.5 ml Output 77191 ml Net -43612.5 ml TELEMETRY: DATA: Laboratory: Recent Labs 08/28/22 [...] and TURP (2006) who presented to [facility] ED 08/26/22 for development of gross hematuria with lower pelvic pain x2 days. He was found to have elevated WBC with + UA, and started on IV atbx. He was transferred to [facility] 08/27 for further management. He [...] RCRI score is 1 for hx of AR, making him a class II risk. This equates to a 6.0% 30-day risk of , AR, or cardiac arrest. Pt denies any cardiac complaints. Per Dr. Bates, no absolute contraindication to proceeding with urologic p (more content not included)... Normal [facility] Comprehensive metabolic 2000 panelon 08-28-2022 Albumin [Mass/Vol] 4.1 g/dL Normal 3.9-4.9 [facility] Comment on above: Order Comment: Speci men Type: BLOOD SPECIMENOrdering Facility: [facility] Address: [address] [address] Performed By: #### 1 9123-9, 31532-2, 277- ####[facility] LABCLIA [id number] [place] [address] [place] ALP [Catalytic activity/Vol] 119 U/L High 38-113 [facility] Comment on above: Order Comment: Speci men Type: BLOOD SPECIMENOrdering Facility: [facility] Address: [address] [address] Performed By: #### 1 9123-9, 19149-0, 2776- ####[facility] LABCLIA [id number] [place] [address] [place] ALT [Catalytic activity/Vol] 23 U/L Normal 10-54 [facility] Comment on above: Order Comment: Speci men Type: BLOOD SPECIMENOrdering Facility: [facility] Address: [address] [address] Performed By: #### 1 9123-9, 34061-6, 2776- ####[facility] LABIA [id number] [place] [address] [place] Anion gap [Moles/Vol] 10 mmol/L Normal 9-18 [facility] Comment on above: Order Comment: Speci men Type: BLOOD SPECIMENOrdering Facility: [facility] Address: [address] [address] Performed By: #### 1 9123-9, 20815-6, 2776-02 ####[facility] LABCLIA [id number] [place] [address] [place] AST [Catalytic activity/Vol] 21 U/L Normal 14-40 [facility] Comment on above: Order Comment: Speci men Type: BLOOD SPECIMENOrdering Facility: [facility] Address: [address] [place] [address] Performed By: #### 1 9123-9, 70170-4, 2776-02 ####[facility] LABCLIA [id number] [place] [address] [place] Bilirubin [Mass/Vol] 1.1 mg/dL Normal 0.2-1.3 [facility] Comment on above: Order Comment: Speci men Type: BLOOD SPECIMENOrdering Facility: [facility] Address: [address] [place] [address] Performed By: #### 1 9123-9, 43285-5, 2776-02 ####[facility] LABCLIA [id number] [place] [address] [place] Calcium [Mass/Vol] 9.1 mg/dL Normal 8.5-10.2 [facility] Comment on above: Order Comment: Speci men Type: BLOOD SPECIMENOrdering Facility: [facility] Address: [address] [place] [phone] Performed By: #### 1 9123-9, 77139-6, 2776-02 ####[facility] LABCLIA [id number] [place] [address] [place] Chloride [Moles/Vol] 105 mmol/L Normal 97-105 [facility] Comment on above: Order Comment: Speci men Type: BLOOD SPECIMENOrdering Facility: [facility] Address: [address] [place] [phone] Performed By: #### 1 9123-9, 97584-6, 27708-18 ####[facility] LABCLIA [id number] [place] [address] [place] CO2 [Moles/Vol] 24 mmol/L Normal 22-30 [facility] Comment on above: Order Comment: Speci men Type: BLOOD SPECIMENOrdering Facility: [facility] Address: [address] [place] [address] Performed By: #### 1 9123-9, 93152-3, 2776- ####[facility] LABIA [id number] [place] [address] [place] Creatinine [Mass/Vol] 0.76 mg/dL Normal 0.73-1.22 [facility] Comment on above: Order Comment: Speci men Type: BLOOD SPECIMENOrdering Facility: [facility] Address: [address] [place] [address] Performed By: #### 1 9123-9, , 2776-02 ####[facility] [id number] [place] [address] [place] ESTIMATED GLOMERULAR FILTRATION RATE 93 mL/min/1.73m??? Normal >=60 [facility] Comment on above: Order Comment: Speci men Type: BLOOD SPECIMENOrdering Facility: [facility] Address: [address] [place] [address] Result Comment: Mariaelena mated Glomerular Filtration Rate [...] actual GFR. Performed By: #### 1 9123-9, 87282-4, 2776- ####[facility] LABIA [id number] [place] [address] [place] Glucose [Mass/Vol] 147 mg/dL High 74-99 [facility] Comment on above: Order Comment: Speci men Type: BLOOD SPECIMENOrdering Facility: [facility] Address: [address] [phone] Result Comment: The [place] Diabetes Association (ADA) provides guidance for cutoff [...] Standards of Medical Care in Diabetes 2016, [place] [employer]. Diabetes Care. 2016.39(Suppl 1). Performed By: #### 1 9123-9, 75123-4, 2777- ####[facility] LABCLIA [id number] [place] [address] [place] Potassium [Moles/Vol] 4.2 mmol/L Normal 3.7-5.1 [facility] Comment on above: Order Comment: Portia tay Type: BLOOD SPECIMENOrdering Facility: [facility] Address: [address] [place] [address] Performed By: #### 1 9123-9, 96331-4, 2777- ####[facility] LABCLIA [id number] [place] [address] [place] Protein [Mass/Vol] 6.6 g/dL Normal 6.3-8.0 [facility] Comment on above: Order Comment: Portia tay Type: BLOOD SPECIMENOrdering Facility: [facility] Address: [address] [place], [place] [phone] Performed By: #### 1 9123-9, 00540-8, 2777-1 ####[facility] LABCLIA [id number] [place] [address] [place] Sodium [Moles/Vol] 139 mmol/L Normal 136-144 [facility] Comment on above: Order Comment: Speci men Type: BLOOD SPECIMENOrdering Facility: [facility] Address: [address] [phone] Performed By: #### 1 9123-9, 74364-3, 2777-1 ####[facility] LABCLIA [id number] [place] [address] [place] Urea nitrogen [Mass/Vol] 14 mg/dL Normal 9-24 [facility] Comment on above: Order Comment: Speci men Type: BLOOD SPECIMENOrdering Facility: [facility] Address: [address] [phone] Performed By: #### 1 9123-9, 81834-2, 2777-1 ####[facility] LABCLIA [id number] [address] [place] ECHOon 08-28-2022 Echocardiography Echocardiography Rep ort: Transthoracic Echo [facility] Bedside Date of service: 08/28/2022 9:45:03 AM [employer] Ordering physician: DAVID ANDREWS Indication: Evaluation of [...] * * Final * * * CC [employer] Image : [id number] Normal [facility] HISTORY PHYSICALon HISTORY PHYSICAL HNO ID: [id number] Author: Earnest Portillo MD Service: Critical Care Author Type: Physician Type: HANDP Filed: 08/28/2022 10:48 PM Note Text: SERVICE DATE: 08/28/2022 SERVICE TIME: 9:49 PM SICU HANDP NOTE HPI: Olaf Briones is a 77 year old male with PMHx of recent STEMI on 08/20/22 (s/p JUHI),HTN, HLD, DM, nephrolithiasis, transferred from [facility] for gross hematuria. 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 Normal [facility] Magnesium SerPl-mCncon 08-28 Magnesium [Mass/Vol] 2.1 mg/dL Normal 1.7-2.3 [facility] Comment on above: Order Comment: Speci men Type: BLOOD SPECIMENOrdering Facility: [facility] Address: [address] [place] [address] Performed By: #### 1 9123-9, 48472-4, 2777-1 ####[facility] LABCLIA [id number] [facility] [facility] [id number] [place] [address] [place] OPERATIVE NOon 08-28-2022 OPERATIVE NO HNO ID: [id number] Author: David Andrews MD Service: Urology Author Type: Physician Type: Operative Report Filed: 08/28/2022 8:20 PM Note Text: OPERATIVE/PROCEDURE REPORT LOG ID: [id number] Surgery/Procedure Date: 08/28/2022 Incision/Procedure Start Time: 6:17 PM Incision Close/Procedure End Time: 7:50 PM Surgeon(s)/Proceduralist( s) and Gameplay Engineer(s): Surgeon(s) and Role: * David Andrews MD [...] cold cup biopsy forceps as a stone ice crusher to allow for the stone to [...] content not included)... Normal [facility] Phosphate [Mass/Vol] 2.9 mg/dL Normal 2.7-4.8 [facility] Comment on above: Order Comment: Speci men Type: BLOOD SPECIMENOrdering Facility: [facility] Address: [address] [place] [address] Performed By: #### 1 9123-9, 87857-2, 2777-1 ####[facility] LABIA [id number] [address] [place] SURGICAL PATHOLOGYon 023 CASE REPORT Normal [facility] Comment on above: Order Comment: Speci men Type: TISSUE SPECIMENOrdering Facility: [facility] Address: [address] [place] [address] Result Comment: Surg ical Pathology Report Case: [id number] Authorizing Provider: David Andrews MD Collected: 08/28/2022 06:54 PM Ordering Location: Admitting Received: 08/29/2022 07:58 AM Pathologist: Gal Poon MD Specimens: A) - PROSTATE TISSUE (CHIPS) B) - PROSTATE TISSUE (CHIPS), #2 Performed By: #### S ####[facility] LABCLIA [id number] [address] [place] CLINICAL HISTORY Normal [facility] Comment on above: Order Comment: Speci men Type: TISSUE SPECIMENOrdering Facility: [facility] Address: [address] [place] [address] Result Comment: Pre- op diagnosis: Hematuria [R31.9] Performed By: #### S ####[facility] LABCLIA [id number] [address] FINAL DIAGNOSIS Normal [facility] Comment on above: Order Comment: Speci men Type: TISSUE SPECIMENOrdering Facility: [facility] Address: [address] [place] [address] Result Comment: AAltagracia smythate, transurethral resection: - Benign prostatic hyperplasia. A. 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 Performed By: #### S ####[facility] LABCLIA [id number] [address] FINAL PERFORMING LAB Normal [facility] Comment on above: Order Comment: Speci men Type: TISSUE SPECIMENOrdering Facility: [facility] Address: [address] [place] [address] Result Comment: Diag nostic interpretation performed at [facility], [address] [address] CLIA# [id number] Community Service Technician: Jacob Urias M.D. Performed By: #### S ####[facility] LABCLIA [id number] [address] GROSS DESCRIPTION Normal [facility] Comment on above: Order Comment: Speci men Type: TISSUE SPECIMENOrdering Facility: [facility] Address: [address] [place] [address] Result Comment: A. P ROSTATE TISSUE (CHIPS) [...] in cassette B1. Gross examination performed at [facility], [address] 08/29/2022 2:10 PM Performed By: #### S ####[facility] LABCLIA [id number] [place] [address] [place] VENOUS BLOOD GASES WITH IONI ZED MAGNESIUMon 08-28-2022 BASE DEFICIT, VENOUS -1 mmol/L Normal -2-0 [facility] Comment on above: Order Comment: Speci men Type: VENOUS BLOOD SPECIMENOrdering Facility: [facility] Address: [address] [place] [address] Performed By: #### V ALLMG ####[facility] LABIA [id number] [place] [address] [place] Calcium.ionized (Bld) [Mass/Vol] 1.19 mmol/L Normal 1.08-1.30 [facility] Comment on above: Order Comment: Speci men Type: VENOUS BLOOD SPECIMENOrdering Facility: [facility] Address: [address] [place] [address] Performed By: #### V ALLMG ####[facility] LABCLIA [id number] [place] [address] [place] Calcium.ionized adjusted to pH 7.4 (BldA) [Moles/Vol] 1.18 mmol/L Normal 1.08-1.30 [facility] Comment on above: Order Comment: Speci men Type: VENOUS BLOOD SPECIMENOrdering Facility: [facility] Address: [address] [place] [address] Performed By: #### V ALLMG ####[facility] LABCLIA [id number] [place] [address] [place] Carboxyhemoglobin (BldV) [Mass fraction] 1.9 % Normal 0.0-2.0 [facility] Comment on above: Order Comment: Speci men Type: VENOUS BLOOD SPECIMENOrdering Facility: [facility] Address: [address] [place] [address] Result Comment: Carb oxyhemoglobin Reference Range for Smokers: 2.0-8.0% Performed By: #### V ALLMG ####[facility] LABCLIA [id number] [place] [address] [place] CO2 (BldV) [Partial pressure] 40 mm[Hg] Low 42-55 [facility] Comment on above: Order Comment: Speci men Type: VENOUS BLOOD SPECIMENOrdering Facility: [facility] Address: [address] [place] [address] Performed By: #### V ALLMG ####[facility] LABCLIA [id number] [place] [address] [place] CO2 [Moles/Vol] 25 mmol/L Normal 25-29 [facility] Comment on above: Order Comment: Speci men Type: VENOUS BLOOD SPECIMENOrdering Facility: [facility] Address: [address] [place] [address] Performed By: #### V ALLMG ####[facility] LABCLIA [id number] [place] [address] [place] CO2 adjusted to patient's actual temperature (BldV) [Partial pressure] 40 mmHg Low 42-55 [facility] Comment on above: Order Comment: Speci men Type: VENOUS BLOOD SPECIMENOrdering Facility: [facility] Address: [address] [place], [place] [phone] Performed By: #### V ALLMG ####[facility] LABCLIA [id number] [place] [address] [place] Glucose [Mass/Vol] 120 mg/dL High 60-105 [facility] Comment on above: Order Comment: Speci men Type: VENOUS BLOOD SPECIMENOrdering Facility: [facility] Address: [address] Performed By: #### V ALLMG ####[facility] LABCLIA [id number] [place] [address] [place] HCO3 (Bld) [Moles/Vol] 24 mmol/L Normal 24-28 [facility] Comment on above: Order Comment: Speci men Type: VENOUS BLOOD SPECIMENOrdering Facility: [facility] Address: [address] Performed By: #### V ALLMG ####[facility] LABIA [id number] [place] [address] [place] Hematocrit (Bld) [Volume fraction] 37.2 % Low 39.0-51.0 [facility] Comment on above: Order Comment: Speci men Type: VENOUS BLOOD SPECIMENOrdering Facility: [facility] Address: [address] [place], [place] [phone] Performed By: #### V ALLMG ####[facility] LABIA [id number] [place] [address] [place] Hemoglobin (Bld) [Mass/Vol] 12.1 g/dL Low 13.0-17.0 [facility] Comment on above: Order Comment: Speci men Type: VENOUS BLOOD SPECIMENOrdering Facility: [facility] Address: [address] [place], [place] [phone] Performed By: #### V ALLMG ####[facility] LABIA [id number] [place] [address] [place] Lactate [Moles/Vol] 1.4 mmol/L Normal 0.5-2.2 [facility] Comment on above: Order Comment: Speci men Type: VENOUS BLOOD SPECIMENOrdering Facility: [facility] Address: [address] Performed By: #### V ALLMG ####[facility] LABIA [id number] [place] [address] [place] Magnesium [Moles/Vol] 0.58 mmol/L Normal 0.45-0.60 [facility] Comment on above: Order Comment: Speci men Type: VENOUS BLOOD SPECIMENOrdering Facility: [facility] Address: [address] [place] [phone] Performed By: #### V ALLMG ####[facility] LABIA [id number] [place] [address] [place] Methemoglobin (Bld) [Mass fraction] 1.7 % High 0.0-1.5 [facility] Comment on above: Order Comment: Speci men Type: VENOUS BLOOD SPECIMENOrdering Facility: [facility] Address: [address] [place] [address] Performed By: #### V ALLMG ####[facility] LABIA [id number] [address] [place] Oxygen (BldV) [Partial pressure] 96 mm[Hg] High 35-45 [facility] Comment on above: Order Comment: Speci men Type: VENOUS BLOOD SPECIMENOrdering Facility: [facility] Address: [address] [place] [phone] Performed By: #### V ALLMG ####[facility] LABIA [id number] [place] [address] [place] Oxygen adjusted to patient's actual temperature (BldV) [Partial pressure] 96 mmHg High 35-45 [facility] Comment on above: Order Comment: Speci men Type: VENOUS BLOOD SPECIMENOrdering Facility: [facility] Address: [address] [place] [phone] Performed By: #### V ALLMG ####[facility] LABIA [id number] [place] [address] [place] Oxygen saturation in Venous blood 97 % High 60-85 [facility] Comment on above: Order Comment: Speci men Type: VENOUS BLOOD SPECIMENOrdering Facility: [facility] Address: [address] [place] [phone] Performed By: #### V ALLMG ####[facility] LABCLIA [id number] [place] [address] [place] Oxyhemoglobin (BldV) [Mass fraction] 94 % High 60-85 [facility] Comment on above: Order Comment: Speci men Type: VENOUS BLOOD SPECIMENOrdering Facility: [facility] Address: [address] [place] [phone] Performed By: #### V ALLMG ####[facility] LABCLIA [id number] [place] [address] [place] pH (BldV) 7.39 [pH] Normal 7.32-7.42 [facility] Comment on above: Order Comment: Speci men Type: VENOUS BLOOD SPECIMENOrdering Facility: [facility] Address: [address] [place] [phone] Performed By: #### V ALLMG ####[facility] LABIA [id number] [place] [address] [place] pH adjusted to patient's actual temperature (BldV) 7.39 Normal 7.32-7.42 [facility] Comment on above: Order Comment: Speci men Type: VENOUS BLOOD SPECIMENOrdering Facility: [facility] Address: [address] [place] [phone] Performed By: #### V ALLMG ####[facility] LABIA [id number] [place] [address] [place] Potassium [Moles/Vol] 3.8 mmol/L Normal 3.5-5.0 [facility] Comment on above: Order Comment: Speci men Type: VENOUS BLOOD SPECIMENOrdering Facility: [facility] Address: [address] [place] [phone] Performed By: #### V ALLMG ####[facility] LABCLIA [id number] [place] [address] [place] Sodium [Moles/Vol] 139 mmol/L Normal 136-144 [facility] Comment on above: Order Comment: Speci men Type: VENOUS BLOOD SPECIMENOrdering Facility: [facility] Address: [address] [address] Performed By: #### V ALLMG ####[facility] LABCLIA [id number] [place] [address] [place] XR CHEST 1V [...] tortuous. Other: Generalized osteopenia. IMPRESSION: See result. Rubber Thread Spooler: PSCB Transcribe Date/Time: Aug 28 2022 10:04P [...] on above: Performed By: #### 6 00-7 ####[facility] LABCLIA [id number] [place] [address] [place] Bacteria identified Cx Nom (Bld) CULTURE, BLOOD: No growth 5 days Normal [facility] Comment on above: Performed By: #### 6 00-7 ####[facility] LABCLIA [id number] [place] [id number] [place] Bacteria Ur Culton 3 Bacteria identified Cx Nom (U) CULTURE, URINE: No growth (<1,000 CFU/ml) Normal [facility] Comment on above: Performed By: #### 6 30-4 ####[facility] LABCLIA [id number] [place] [address] [place] Basic metabolic 2000 panelon 08-27-2022 Anion gap [Moles/Vol] 13 mmol/L Normal 9-18 [facility] Comment on above: Order Comment: Speci men Type: BLOOD SPECIMENOrdering Facility: [facility] Address: [address] [place] [address] Performed By: #### 2 4321-2, , 2776-02 ####[facility] LABCLIA [id number] [place] [address] [place] Calcium [Mass/Vol] 9.3 mg/dL Normal 8.5-10.2 [facility] Comment on above: Order Comment: Speci men Type: BLOOD SPECIMENOrdering Facility: [facility] Address: [address] [place] [address] Performed By: #### 2 4321-2, , 2776-02 ####[facility] LABCLIA [id number] [place] [address] [place] Chloride [Moles/Vol] 105 mmol/L Normal 97-105 [facility] Comment on above: Order Comment: Speci men Type: BLOOD SPECIMENOrdering Facility: [facility] Address: [address] [place] [phone] Performed By: #### 2 4321-2, , 2776-02 ####[facility] LABCLIA [id number] [place] [address] [place] CO2 [Moles/Vol] 22 mmol/L Normal 22-30 [facility] Comment on above: Order Comment: Speci men Type: BLOOD SPECIMENOrdering Facility: [facility] [facility] Address: [address] [place], [place] [id number] Performed By: #### 2 4321-2, , 2776-02 ####[facility] LABIA [id number] [place] [address] [place] Creatinine [Mass/Vol] 0.79 mg/dL Normal 0.73-1.22 [facility] Comment on above: Order Comment: Speci men Type: BLOOD SPECIMENOrdering Facility: [facility] Address: [address] [place] [address] Performed By: #### 2 4321-2, , 2776-02 ####[facility] LABIA [id number] [place] [address] [place] ESTIMATED GLOMERULAR FILTRATION RATE 91 mL/min/1.73m??? Normal >=60 [facility] Comment on above: Order Comment: Speci men Type: BLOOD SPECIMENOrdering Facility: [facility] Address: [address] [place] [address] Result Comment: Mariaelena mated Glomerular Filtration Rate [...] Performed By: #### 2 4321-2, , 2776-02 ####[facility] LABIA [id number] [place] [id number] [place] Glucose [Mass/Vol] 197 mg/dL High 74-99 [facility] Comment on above: Order Comment: Speci men Type: BLOOD SPECIMENOrdering Facility: [facility] Address: [address] [place] [address] Result Comment: The [place] Diabetes Association (ADA) provides guidance for cutoff [...] Standards of Medical Care in Diabetes 2016, [place] Diabetes Association. Diabetes Care. 2016.39(Suppl 1). Performed By: #### 2 4321-2, , 2776-02 ####[facility] LABCLIA [id number] [place] [address] [place] Potassium [Moles/Vol] 4.3 mmol/L Normal 3.7-5.1 [facility] Comment on above: Order Comment: Speci men Type: BLOOD SPECIMENOrdering Facility: [facility] Address: [address] [place], [place] [address] Performed By: #### 2 4321-2, , 2776-02 ####[facility] LABCLIA [id number] [place] [address] [place] Sodium [Moles/Vol] 140 mmol/L Normal 136-144 [facility] Comment on above: Order Comment: Speci men Type: BLOOD SPECIMENOrdering Facility: [facility] Address: [address] [place], [place] [address] Performed By: #### 2 4321-2, , 2776-02 ####[facility] LABCLIA [id number] [place] [id number] [place] Urea nitrogen [Mass/Vol] 17 mg/dL Normal 9-24 [facility] Comment on above: Order Comment: Speci men Type: BLOOD SPECIMENOrdering Facility: [facility] Address: [address] [place] [address] Performed By: #### 2 4321-2, 28191-1, 2777-1 ####[facility] [id number] [place] [id number] [place] CASE MGT INIT ASSESon 2022 CASE MGT INIT ASSES HNO ID: [id number] Author: Yane George RN Service: ? Author [...] Current Advance Directive: Health Care Power of Material Requisitioner (Patient reports he has AD. request copy to scan for [employer] chart) Current Living Arrangements and Support Lives with: Spouse/significant other Type of Residence: Private Residence (House) Does the patient have to climb stairs at home?: stairs outside the home;stairs within the home;Yes Support: Spouse/significant other How do you manage to accomplish the following: Independent: Ambulation;Bathe/Shower;D ress;Meals/Meal Prep;Going to the bathroom;Medication Management;Transportation to appointments/community Current Services/Equipment Current Post-Acute Service(s): (None) Discharge Planning Patient Goal(s): General wellness, Be able to go home Sasser of Choice Explained: Sasser of Choice Given: No Reason Not Given: [...] nephrolithiasis who was transferred from [facility] w/ gross hematuria CM met patient in room. Patient lives with spouse at home. Patient reports independence at home with adl's/iadl's prior to admission. No oxygen, or cpaps at home. Had recent AR in past. Cardiology on consult. No current home health care. Chart reviewed. PT/OT consults - not currently ordered. Pt has a 6-click score of 20. Pt on Room Air. Pt is on Zosyn IVATB meds at this time. Pts family will provide dc transport. Discharge needs TBD Medical course. Has hrenandez cath in place. CM will continue to follow. SIGNATURE: Yane George RN PATIENT NAME: Olaf Briones DATE: August 27, 2022 TIME: 5:05 PM CONTACT #: [phone] Normal [facility] CBC W Auto Differential pane l (Bld)on 08-27-2022 Basophils (Bld) [#/Vol] 0.03 10*3/uL Normal <0.11 [facility] Comment on above: Order Comment: Speci men Type: BLOOD SPECIMENOrdering Facility: [facility] Address: [address] [place] [address] Performed By: #### 5 7021-8 ####[facility] LABCLIA [id number] [place] [address] [place] Basophils/100 WBC (Bld) 0.2 % Normal [facility] Comment on above: Order Comment: Speci men Type: BLOOD SPECIMENOrdering Facility: [facility] Address: [address] [place] [address] Performed By: #### 5 7021-8 ####[facility] LABCLIA [id number] [place] [address] [place] Differential cell count method Nom (Bld) Auto Normal [facility] Comment on above: Order Comment: Speci men Type: BLOOD SPECIMENOrdering Facility: [facility] Address: [address] [place] [address] Performed By: #### 5 7021-8 ####[facility] LABCLIA [id number] [place] [address] [place] Eosinophils (Bld) [#/Vol] 10*3/uL Normal <0.46 [facility] Comment on above: Order Comment: Speci men Type: BLOOD SPECIMENOrdering Facility: [facility] Address: [address] [place] [address] Performed By: #### 5 7021-8 ####[facility] LABCLIA [id number] [place] [address] [place] Eosinophils/100 WBC (Bld) 0.1 % Normal [facility] Comment on above: Order Comment: Speci men Type: BLOOD SPECIMENOrdering Facility: [facility] Address: [address] [place], [place] [id number] Performed By: #### 5 7021-8 ####[facility] LABCLIA [id number] [place] [address] [place] Erythrocyte distribution width (RBC) [Ratio] 12.5 % Normal 11.5-15.0 [facility] Comment on above: Order Comment: Speci men Type: BLOOD SPECIMENOrdering Facility: [facility] Address: [address] [place], [place] [address] Performed By: #### 5 7021-8 ####[facility] LABCLIA [id number] [place] [address] [place] Hematocrit (Bld) [Volume fraction] 38.5 % Low 39.0-51.0 [facility] Comment on above: Order Comment: Speci men Type: BLOOD SPECIMENOrdering Facility: [facility] Address: [address] Performed By: #### 5 7021-8 ####[facility] LABCLIA [id number] [place] [address] [place] Hemoglobin (Bld) [Mass/Vol] 13.4 g/dL Normal 13.0-17.0 [facility] Comment on above: Order Comment: Speci men Type: BLOOD SPECIMENOrdering Facility: [facility] Address: [address] Performed By: #### 5 7021-8 ####[facility] LABCLIA [id number] [place] [address] [place] Immature granulocytes (Bld) [#/Vol] 0.10 10*3/uL High <0.10 [facility] Comment on above: Order Comment: Speci men Type: BLOOD SPECIMENOrdering Facility: [facility] Address: [address] Performed By: #### 5 7021-8 ####[facility] LABCLIA [id number] [place] [address] [place] Immature granulocytes/100 WBC (Bld) 0.6 % Normal [facility] Comment on above: Order Comment: Speci men Type: BLOOD SPECIMENOrdering Facility: [facility] Address: [address] Performed By: #### 5 7021-8 ####[facility] LABCLIA [id number] [place] [address] [place] Lymphocytes (Bld) [#/Vol] 1.16 10*3/uL Normal 1.00-4.00 [facility] Comment on above: Order Comment: Speci men Type: BLOOD SPECIMENOrdering Facility: [facility] Address: [address] Performed By: #### 5 7021-8 ####[facility] LABCLIA [id number] [address] [place] Lymphocytes/100 WBC (Bld) 7.1 % Normal [facility] Comment on above: Order Comment: Speci men Type: BLOOD SPECIMENOrdering Facility: [facility] Address: [address] [place] [address] Performed By: #### 5 7021-8 ####[facility] LABIA [id number] [address] MCH (RBC) [Entitic mass] 31.5 pg Normal 26.0-34.0 [facility] Comment on above: Order Comment: Speci men Type: BLOOD SPECIMENOrdering Facility: [facility] Address: [address] [place] [address] Performed By: #### 5 7021-8 ####[facility] LABIA [id number] [address] MCHC (RBC) [Mass/Vol] 34.8 g/dL Normal 30.5-36.0 [facility] Comment on above: Order Comment: Speci men Type: BLOOD SPECIMENOrdering Facility: [facility] Address: [address] [place], [place] [address] Performed By: #### 5 7021-8 ####[facility] LABIA [id number] [address] [place] MCV (RBC) [Entitic vol] 90.6 fL Normal 80.0-100.0 C [facility] Comment on above: Order Comment: Speci men Type: BLOOD SPECIMENOrdering Facility: [facility] Address: [address] [place], [place] [address] Performed By: #### 5 7021-8 ####[facility] LABIA [id number] [address] [place] Monocytes (Bld) [#/Vol] 1.00 10*3/uL High <0.87 [facility] Comment on above: Order Comment: Speci men Type: BLOOD SPECIMENOrdering Facility: [facility] Address: [address] Performed By: #### 5 7021-8 ####[facility] LABCLIA [id number] [place] [address] [place] Monocytes/100 WBC (Bld) 6.2 % Normal [facility] Comment on above: Order Comment: Speci men Type: BLOOD SPECIMENOrdering Facility: [facility] Address: [address] Performed By: #### 5 7021-8 ####[facility] LABIA [id number] [place] [address] [place] Neutrophils (Bld) [#/Vol] 13.93 10*3/uL High 1.45-7.50 [facility] Comment on above: Order Comment: Speci men Type: BLOOD SPECIMENOrdering Facility: [facility] Address: [address] Performed By: #### 5 7021-8 ####[facility] LABIA [id number] [place] [address] [place] Neutrophils/100 WBC (Bld) 85.8 % Normal [facility] Comment on above: Order Comment: Speci men Type: BLOOD SPECIMENOrdering Facility: [facility] Address: [address] Performed By: #### 5 7021-8 ####[facility] LABIA [id number] [place] [address] [place] Nucleated RBC (Bld) [#/Vol] 10*3/uL Normal <0.01 [facility] Comment on above: Order Comment: Speci men Type: BLOOD SPECIMENOrdering Facility: [facility] Address: [address] Performed By: #### 5 7021-8 ####[facility] LABCLIA [id number] [place] [address] [place] Nucleated RBC/100 WBC (Bld) [Ratio] 0.0 /100 WBC Normal [facility] Comment on above: Order Comment: Speci men Type: BLOOD SPECIMENOrdering Facility: [facility] Address: [address] [place], [place] [address] Performed By: #### 5 7021-8 ####[facility] LABIA [id number] [place] [address] [place] Platelet mean volume (Bld) [Entitic vol] 11.4 fL Normal 9.0-12.7 [facility] Comment on above: Order Comment: Speci men Type: BLOOD SPECIMENOrdering Facility: [facility] Address: [address] [place], [place] [address] Performed By: #### 5 7021-8 ####[facility] LABIA [id number] [place] [address] [place] Platelets (Bld) [#/Vol] 214 10*3/uL Normal 150-400 [facility] Comment on above: Order Comment: Speci men Type: BLOOD SPECIMENOrdering Facility: [facility] Address: [address] [place] [address] Performed By: #### 5 7021-8 ####[facility] LABIA [id number] [place] [address] [place] RBC (Bld) [#/Vol] 4.25 10*6/uL Normal 4.20-6.00 [facility] Comment on above: Order Comment: Speci men Type: BLOOD SPECIMENOrdering Facility: [facility] Address: [address] [place], [place] [address] Performed By: #### 5 7021-8 ####[facility] LABIA [id number] [address] [place] WBC (Bld) [#/Vol] 16.24 10*3/uL High 3.70-11.00 [facility] Comment on above: Order Comment: Speci men Type: BLOOD SPECIMENOrdering Facility: [facility] Address: [address] [place] [address] Performed By: #### 5 7021-8 ####[facility] LABCLIA [id number] [address] [place] BLOOD TYPEon 023 ABO O Normal [facility] Comment on above: Order Comment: Speci men Type: BLOOD SPECIMENOrdering Facility: [facility] Address: [address] [place] [address] Performed By: #### C ONABO ####[facility] BLOOD BANKCLIA [id number] [address] Rh Nom (Bld) Positive Normal [facility] Comment on above: Order Comment: Speci men Type: BLOOD SPECIMENOrdering Facility: [facility] Address: [address] [place] [address] Performed By: #### C ONABO ####[facility] BLOOD BANKCLIA [id number] [address] CONSULTon 08-27-2022 CONSULT HNO ID: [id number] Author: Uzma Bates MD Service: Cardiovascular Medicine Author Type: Physician Type: Consults Filed: 08/27/2022 8:39 PM Note Text: [facility] CARDIOVASCULAR MEDICINE CONSULT NOTE (Template ID [id number]) Olaf Briones [id number] PRIMARY SERVICE: Urology CONSULTING SERVICE: Cardiovascular Medicine: [...] nephrolithiasis who was transferred from [facility] w/ gross hematuria. Hematuria started on Thursday [...] out . 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 In laboratory monitor, there were concerns that pacemaker might be necessary. After stent was deployed in prox RCA,AV block resolved and HR normalized. Pt was put on ASA, Brillinta, Lisinopril (2.5), and Coreg (6.25) and was discharged two days later. PAST MEDICAL HISTORY HTN, HLD, CAD, DM FAMILY HISTORY Son- AR, Daughter- AR HOME MEDICATIONS allopurinol (ZYLOPRIM) 300 mg tabletTake [...] (more content not included)... Normal [facility] ECG COMPLETEon 08-27-2022 ECG COMPLETE Ventricular Rate : 6 8 BPM Atrial Rate : 68 BPM P-R Interval : 186 ms QRS Duration : 102 ms Q-T Interval : 452 ms QTC Calculation(Bazett) : 480 ms Calculated P [place] : 7 degrees Calculated R [place] : -25 degrees Calculated T [place] : -33 degrees NORMAL SINUS RHYTHM MINIMAL VOLTAGE CRITERIA FOR LVH, MAY BE NORMAL VARIANT ( R in aVL ) CANNOT EXCLUDE ANTERIOR MYOCARDIAL INFARCTION , AGE UNDETERMINED ABNORMAL ECG Confirmed by CODY MANCIA MD (57) on 09/01/2022 3:04:36 PM NAME : OLAF BRIONES PID : [id number] : 1945 Gender : Male Race : Unknown ORD : [id number] Procedure Date : Aug 27 2022 12:56:05 Edit Date : Sep 01 2022 15:04:38 Diagnosis: NORMAL SINUS RHYTHM MINIMAL VOLTAGE CRITERIA FOR LVH, MAY BE NORMAL VARIANT ( R in aVL ) CANNOT EXCLUDE ANTERIOR MYOCARDIAL INFARCTION , AGE UNDETERMINED ABNORMAL ECG Confirmed by CODY MANCIA MD (57) on 09/01/2022 3:04:36 PM Test Reason : Arrhythmia Location : 53 : 0 H050-01 Overread By : CODY MANCIA MD Edited By : CODY MANCIA MD Referred By : , Acquired by : CAROL MALDONADO Normal [facility] HISTORY PHYSICALon HISTORY PHYSICAL HNO ID: [id number] Author: David Andrews MD Service: Urology Author Type: Physician Type: HANDP Filed: 08/27/2022 9:26 PM Note Text: UROLOGY SERVICE HISTORY AND PHYSICAL Name: Olaf Briones Bed: H050 001/H050-01 Date: 08/27/2022 After Hours [facility] Pager: [phone] ASSESSMENT AND PLAN Olaf Briones is a 77 year old male with PMHx of HTN, HLD, DM, recent STEMI (s/p JUHI), nephrolithiasis, transferred from [facility] for gross hematuria. Currently with 18Fr 3-way [...] catheter stops flowing clamp CBI and page [phone] - Will continue to follow urine, if remains clear may be able to avoid OR this admission in setting of recent STEMI requiring PCI - Working to obtain cardiology records from [facility] Gt Encarnacion MD PGY-6, Urology Pager: [phone] After 1800 and on weekends please page [phone] for assistance. Active Problems Prior AR POA: Yes - placed on ASA 81, [...] STEMI (s/p JUHI), nephrolithiasis, transferred from [facility] for gross hematuria. He recently had primary revascularization of proximal RCA (3mm JUHI) placed at [facility] for STEMI on August 20. He was [...] seen by Dr. Ivory in [facility] for nephrolithiasis. He previously had ESWL (2000), [...] as need (more content not included)... [facility] HNO ID: [id number] Author: Francis Irizarry MD Service: Urology Author Type: Resident Type: Chg in Clinical Condition Filed: 08/27/2022 9:40 AM Note Text: Olaf Briones 08/27/2022 9:33 AM AMET for orthostatic hypotension Assessment: Olaf Briones is a 77 year old male with PMHx of HTN, HLD, DM, recent STEMI (s/p JUHI), nephrolithiasis, transferred from [facility] for gross hematuria. Currently with 18Fr 3-way [...] for recent STEMI last week at [facility]. Unable to see ECHO data, EKG at [...] his is coming to visit. 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 is Dr. Zamora. Luis Angel on brillinta [...] bedside to have bring records from [facility] to here. Will also request ECHO report from [facility] as well. - Continue CBI, titrate to light pink Discussed with chief, Dr. Encarnacion, and staff, Dr. Sharon Irizarry MD Pager [phone], after hours or weekends please page [phone] Urology Resident, PGY-5 Normal [facility] HNO ID: [id number] Author: Claudy William APRN.WINE MASTER Service: Critical Care Author Type: Nurse Practitioner [...] 08-27 Magnesium [Mass/Vol] 2.2 mg/dL Normal 1.7-2.3 [facility] Comment on above: Order Comment: Portia tay Type: BLOOD SPECIMENOrdering Facility: [facility] Address: [address] [place] [address] Performed By: #### 2 4321-2, 94295-1, 2777-1 ####[facility] LABCLIA [id number] [address] [facility] PT panel Coag (PPP)on 2022 INR Coag (PPP) [Relative time] 1.0 {INR} Normal 0.9-1.3 [facility] Comment on above: Order Comment: Portia tay Type: BLOOD SPECIMENOrdering Facility: [facility] Address: [address] [place] [address] Result Comment: Mago min K Antagonist (VKA) Therapeutic Range: INR 2 to 3 (Target INR of 2.5) Note: For patients treated with VKA drugs, such as warfarin, the [place] [employer] 2012 Guideline recommends [...] Chest 2012, 141:7S-47S Daniel RA, et al. [facility] 2017, 70: 252-289 Performed By: #### 3 4528-0, 08377-1 ####[facility] LABCLIA [id number] [place] [address] [place] PT Coag (PPP) [Time] 10.4 s Normal 9.7-13.0 [facility] Comment on above: Order Comment: Speci men Type: BLOOD SPECIMENOrdering Facility: [facility] Address: [address] [place] [address] Performed By: #### 3 4528-0, 65427-0 ####[facility] LABCLIA [id number] [address] [place] Phosphate SerPl-mCncon 08-27 Phosphate [Mass/Vol] 3.7 mg/dL Normal 2.7-4.8 [facility] Comment on above: Order Comment: Speci men Type: BLOOD SPECIMENOrdering Facility: [facility] Address: [address] [place] [address] Performed By: #### 2 4321-2, 54895-3, 2777-1 ####[facility] LABCLIA [id number] [address] [place] TYPE + SCREENon 08-27-2022 ABO O Normal [facility] Comment on above: Order Comment: Speci men Type: BLOOD SPECIMENOrdering Facility: [facility] Address: [address] [place] [address] Performed By: #### T SCR ####CC [facility] BLOOD BANKCLIA [id number] [address] [place] HISTORICAL AB SCR STATUS Negative Normal [facility] Comment on above: Order Comment: Speci men Type: BLOOD SPECIMENOrdering Facility: [facility] Address: [address] [place] [address] Performed By: #### T SCR ####CC [facility] BLOOD BANKCLIA [id number] [address] Rh Nom (Bld) Positive Normal [facility] Comment on above: Order Comment: Speci men Type: BLOOD SPECIMENOrdering Facility: [facility] Address: [address] [place] [address] Performed By: #### T SCR ####CC [facility] BLOOD BANKIA [id number] [address] TYPE AND SCREEN EXPIRATION 08/30/2022 23:59 Normal [facility] Comment on above: Order Comment: Speci men Type: BLOOD SPECIMENOrdering Facility: [facility] Address: [address] [place] [address] Performed By: #### T SCR ####CC [facility] BLOOD BANKCLIA [id number] [address] [place] aPTT PPPon 08-27-2022 aPTT Coag (PPP) [Time] 28.7 s Normal 23.0-32.4 [facility] Comment on above: Order Comment: Speci men Type: BLOOD SPECIMENOrdering Facility: [facility] Address: [address] [place] [address] Performed By: #### 3 4528-0, 97779-4 ####[facility] LABCLIA [id number] [address] [place] CHEMISTRYOrdered By: SYSTEM SYSTEM on 08-26-2022 Anion gap [Moles/Vol] 13 mmol/L Normal 6 - 16 mEq/L [facility] Calcium [Mass/Vol] 8.9 mg/dL Normal 8.9 - 11. 1 mg/dL [facility] Chloride [Moles/Vol] 105 mmol/L Normal 101 - 1 11 mmol/L [facility] CO2 [Moles/Vol] 24 mmol/L Normal 21 - 31 mmol/L [facility] Creatinine [Mass/Vol] 0.9 mg/dL Normal 0.5 - 1.3 mg/dL [facility] GFR/1.73 sq M.predicted among non-blacks MDRD (S/P/Bld) [Vol rate/Area] 88 mL/min/1.73 m2 Normal >=59mL/min /1.73 m2 FT [facility] S Glucose [Mass/Vol] 154 mg/dL Normal 55 - 199 mg/dL [facility] Potassium [Moles/Vol] 4.0 mmol/L Normal 3.5 - 5.3 mmol/L [facility] Sodium [Moles/Vol] 138 mmol/L Normal 135 - 145 mmol/L [facility] Urea nitrogen [Mass/Vol] 18 mg/dL Normal 5 - 21 mg/dL [facility] Urea nitrogen/Creatinine [Mass ratio] 20 mg/mg [...] Cx Nom (U) No growth to date [facility] [facility] URINALYSISOrdered By: Jordan quintana on 08-26-2022 [...] [#/Area] 0-2 /HPF Normal 0-2/HPF [facility] UA Aut o SS Glucose Test strip (U) [Mass/Vol] Trace *ABN* (08/26/22 6:58 PM) Invalid Interpretation Code Negative [facility] UA Auto SS Hemoglobin Ql (U) 3+ *ABN* (08/26/22 6:58 PM) Invalid Interpretation Code Negative [facility] UA Auto SS Ketones (U) [Mass/Vol] 1+ *ABN* (08/26/22 6:58 PM) Invalid Interpretation Code Negative [facility] UA Auto SS [place].plasma/[place]. RBC (Bld) [Mass ratio] >75 /HPF Invalid [...] (08/26/22 6:58 PM) Invalid Interpretation Code Negative [facility] UA Auto SS WBC LM.HPF (Urine sed) [#/Area] 16-25 /HPF Invalid Interpretation Code 0-5/HPF [facility] UA Auto SS Basophils Auto (Bld) [#/Vol] Ordered By: Steven Zamora on 08-22-2022 Basophils (Bld) [#/Vol] 0.0 10*3/uL 0.0-0.2 [facility] Basophils/100 WBC Auto (Bld) Ordered By: Steven Zamora on 08-22-2022 Basophils/100 WBC (Bld) 0.3 % . [facility] Calcium [Mass/volume] in Ser um or PlasmaOrdered By: Steven Zamora on 08-22-2022 Calcium [Mass/Vol] 9.0 mg/dL 8.6-10.3 [facility] Carbon dioxide, total [Moles /volume] in Serum or PlasmaOrdered By: Steven Zamora on 08-22-2022 CO2 [Moles/Vol] 26.0 mmol/L 21.0-31.0 [facility] Chloride [Moles/volume] in S jamin or PlasmaOrdered By: Steven Zamora on 08-22-2022 Chloride [Moles/Vol] 105 mmol/L 98-107 [facility] Creatinine [Mass/volume] in Serum or PlasmaOrdered By: Steven Zamora on 08-22-2022 Creatinine [Mass/Vol] 0.79 mg/dL 0.70-1.30 [facility] Eosinophils Auto (Bld) [#/Vo l]Ordered By: Steven Zamora on 08-22-2022 Eosinophils (Bld) [#/Vol] 0.1 10*3/uL 0.0-0.45 [facility] Eosinophils/100 WBC Auto (Bl d)Ordered By: Steven Zamora on 08-22-2022 Eosinophils/100 WBC (Bld) 1.6 % . [facility] Erythrocyte distribution wid th Auto (RBC) [Ratio]Ordered By: Steven Zamora on 08-22-2022 Erythrocyte distribution width (RBC) [Ratio] 13.7 % 12.0-14.8 [facility] Glucose [Mass/volume] in Ser um or PlasmaOrdered By: Steven Zamora on 08-22-2022 Glucose [Mass/Vol] 133 mg/dL 70-100 [facility] Comment on above: ADA recommended refe rence rangeRandom Glucose Reference Range is dependent on time and content of last meal. Glucose of more than 200 mg/dL in a nonstressed, ambulatory subject supports the diagnosis of Diabetes Mellitus. Hematocrit Auto (Bld) [Volum e fraction]Ordered By: Steven Zamora on 08-22-2022 Hematocrit (Bld) [Volume fraction] 41.1 % 38.8-50.0 [facility] Hemoglobin [Mass/volume] in BloodOrdered By: Steven Zamora on 08-22-2022 Hemoglobin (Bld) [Mass/Vol] 13.9 g/dL 13.0-17.0 [facility] Leukocytes [#/volume] correc betty for nucleated erythrocytes in Blood by Automated counOrdered By: Steven Zamora on 08-22-2022 WBC corrected for nucl RBC Auto (Bld) [#/Vol] 8.8 10*3/uL 4.1-10.5 [facility] Lymphocytes Auto (Bld) [#/Vo l]Ordered By: Steven Zamora on 08-22-2022 Lymphocytes (Bld) [#/Vol] 1.4 10*3/uL 1.00-4.8 [facility] Lymphocytes/100 WBC Auto (Bl d)Ordered By: Steven Zamora on 08-22-2022 Lymphocytes/100 WBC (Bld) 15.9 % . [facility] MCH Auto (RBC) [Entitic mass ]Ordered By: Steven Zamora on 08-22-2022 MCH (RBC) [Entitic mass] 31.5 pg 27.5-35.2 [facility] MCHC Auto (RBC) [Mass/Vol]Or dered By: Steven Zamora on 08-22-2022 MCHC (RBC) [Mass/Vol] 33.9 g/dL 32.5-35.6 [facility] MCV Auto (RBC) [Entitic vol] Ordered By: Steven Zamora on 08-22-2022 MCV (RBC) [Entitic vol] 92.8 fL 83.5-101 [facility] Monocytes Auto (Bld) [#/Vol] Ordered By: Steven Zamora on 08-22-2022 Monocytes (Bld) [#/Vol] 0.9 10*3/uL 0.0-0.8 [facility] Monocytes/100 WBC Auto (Bld) Ordered By: Steven Zamora on 08-22-2022 Monocytes/100 WBC (Bld) 9.7 % . [facility] Neutrophils Auto (Bld) [#/Vo l]Ordered By: Steven Zamora on 08-22-2022 Neutrophils (Bld) [#/Vol] 6.4 10*3/uL 1.8-7.7 [facility] Neutrophils/100 WBC Auto (Bl d)Ordered By: Steven Zamora on 08-22-2022 Neutrophils/100 WBC (Bld) 72.5 % . [facility] No Panel InformationOrdered By: Steven Zamora on 08-22-2022 Estimated GFR (CKD-EPI) > 60.0 mL/Min [facility] Creatinine Clearance (Chem 74.81 [facility] No Panel Informationon 08-22 0.0\S\0.0 Normal 0.0-0.2 [facility] [employer] [place] [address] DO Work Phone: Comment on above: PERFORMED BY:[place] [address] [place], [place] [phone] MEDICAL DIRECTORDREW REAL M.D. 0.1\S\0.1 Normal 0-0.5 [facility] [address] DO Work Phone: 0.9\S\0.9 above high threshold 0.0-0.8 [facility] [address] DO Work Phone: 1.4\S\1.4 Normal 1.00-4.8 [facility] [address] DO Work Phone: 6.4\S\6.4 Normal 1.8-7.7 [facility] [address] DO Work Phone: 0.3\S\0.3 Normal . [facility] [address] DO Work Phone: 1.6\S\1.6 Normal . [facility] [address] DO Work Phone: 9.7\S\9.7 Normal . [facility] [address] DO Work Phone: 15.9\S\15.9 Normal . [facility] [address] DO Work Phone: 72.5\S\72.5 Normal . [facility] [address] DO Work Phone: 9.6\S\9.6 Normal 6.6-10.1 [facility] [address] DO Work Phone: 162\S\162 Normal 150-450 [facility] [address] DO Work Phone: 13.7\S\13.7 Normal 12.0-14.8 [facility] [address] DO Work Phone: 33.9\S\33.9 Normal 32.5-35.6 [facility] [address] DO Work Phone: 31.5\S\31.5 Normal 27.5-35.2 [facility] [address] DO Work Phone: 92.8\S\92.8 Normal 83.5-101 [facility] [address] DO Work Phone: 41.1\S\41.1 Normal 38.8-50.0 [facility] [address] DO Work Phone: 13.9\S\13.9 Normal 13.0-17.0 [facility] [address] DO Work Phone: 4.43\S\4.43 Normal 3.90-5.60 [facility] [address] DO Work Phone: [phone] 8.8\S\8.8 Normal 4.1-10.5 [facility] [employer] [address] DO Work Phone: [phone] > 60.0 Normal [facility] [employer] [address] DO Work Phone: 10.8\S\10.8 Normal 6.0-15.0 [facility] [employer] [address] DO Work Phone: [phone] 74.81\S\74.81 Normal [facility] [employer] [address] DO Work Phone: Comment on above: PERFORMED BY:[place] [address] [place], [place] [phone] MEDICAL DIRECTORDREW REAL M.D. 9.0\S\9.0 Normal 8.6-10.3 [facility] [employer] [address] DO Work Phone: 26.0\S\26.0 Normal 21.0-31.0 [facility] [employer] [address] DO Work Phone: 105\S\105 Normal 98-107 [facility] [employer] [address] DO Work Phone: 3.8\S\3.8 Normal 3.5-5.1 [facility] [employer] [address] DO Work Phone: 138\S\138 Normal 136-145 [facility] [employer] [address] DO Work Phone: 0.79\S\0.79 Normal 0.70-1.30 [facility] [employer] [address] DO Work Phone: [phone] 20\S\20 Normal 7-25 [facility] [employer] [address] DO Work Phone: 133\S\133 above high threshold 70-100 [facility] [employer] [address] DO Work Phone: Comment on above: [...] RBC Auto Ql (Bld) 0.1 /100{WBC} 0-0.5 [facility] Platelet mean volume Auto (B ld) [Entitic vol]Ordered By: Steven Zamora on 08-22-2022 Platelet mean volume (Bld) [Entitic vol] 9.6 fL 6.6-10.1 [facility] Platelets Auto (Bld) [#/Vol] Ordered By: Steven Zamora on 08-22-2022 Platelets (Bld) [#/Vol] 162 10*3/uL 150-450 [facility] Potassium [Moles/volume] in Serum or PlasmaOrdered By: Steven Zamora on 08-22-2022 Potassium [Moles/Vol] 3.8 mmol/L 3.5-5.1 [facility] RBC Auto (Bld) [#/Vol]Ordere d By: Steven Zamora on 08-22-2022 RBC (Bld) [#/Vol] 4.43 10*6/uL 3.90-5.60 [facility] Serum or plasma anion gap de terminationOrdered By: Steven Zamora on 08-22-2022 Anion gap [Moles/Vol] 10.8 mmol/L 6.0-15.0 [facility] Sodium [Moles/volume] in Ser um or PlasmaOrdered By: Steven Zamora on 08-22-2022 Sodium [Moles/Vol] 138 mmol/L 136-145 [facility] Urea nitrogen [Mass/volume] in Serum or PlasmaOrdered By: Steven Zamora on 08-22-2022 Urea nitrogen [Mass/Vol] 20 mg/dL 7-25 [facility] WBC Auto (Bld) [#/Vol]Ordere d By: Steven Zamora on 08-22-2022 WBC (Bld) [#/Vol] 8.8 10*3/uL 4.1-10.5 [facility] Cholesterol [Mass/volume] in Serum or PlasmaOrdered By: Steven Zamora on 08-21-2022 Cholesterol [Mass/Vol] 132 mg/dL 140-200 [facility] Comment on above: Chol less than 200 m g/dl low riskChol 201-239 mg/dl borderline riskChol 240 mg/dl and greater high risk Cholesterol in LDL Calc [Mas s/Vol]Ordered By: Steven Zamora on 08-21-2022 Cholesterol in LDL [Mass/Vol] 62 mg/dL 0-100 [facility] Comment on above: LDL ATP III CLASSIFI CATIONLDL less than 100 mg/dL OptimalLDL 100-129 mg/dL Near or above optimalLDL 130-159 mg/dL Borderline highLDL 160-189 mg/dL HighLDL greater than 189 mg/dL Very high Cholesterol in VLDL Calc [Ma ss/Vol]Ordered By: Steven Zamora on 08-21-2022 Cholesterol in VLDL [Mass/Vol] 24 mg/dL [facility] Glucose Glucometer (BldC) [M ass/Vol]Ordered By: Steven Zamora on 08-21-2022 Glucose [Mass/Vol] 121 mg/dL [facility] Comment on above: Random Glucose Refer ence Range is dependent on time and content of last meal. Glucose of more than 200 mg/dL in a nonstressed, ambulatory subject supports the diagnosis of Diabetes Mellitus. Laboratory - Chemistry and C hemistry - challengeon 08-21-2022 Cholesterol [Mass/Vol] 132\S\132 below low threshold 140-200 -[facility] [address] DO Work Phone: Comment on above: Chol less than 200 m g/dl low risk Chol 201-239 mg/dl borderline risk Chol 240 mg/dl and greater high risk Cholesterol in LDL [Mass/Vol] 62\S\62 Normal 0-100 -[facility] [address] DO Work Phone: Comment on above: LDL ATP III CLASSIFI CATION LDL less than 100 mg/dL Optimal LDL 100-129 mg/dL Near or above optimal LDL 130-159 mg/dL Borderline high LDL 160-189 mg/dL High LDL greater than 189 mg/dL Very high No Panel InformationOrdered By: Steven Zamora on 08-21-2022 Bedside Glucose Comment Glu2: cleaned meter [facility] No Panel Informationon 08-21 Glu2: Cleaned Meter Normal [facility] [place] [facility] [address] DO Work Phone: [phone] Comment on above: PERFORMED BY:[facility] [place], [place] [phone] MEDICAL DIRECTORDREW REAL M.D. 121\S\121 Normal [facility] [address] DO Work Phone: [phone] Comment on above: Random Glucose Refer ence Range is dependent on time and content of last meal. Glucose of more than 200 mg/dL in a nonstressed, ambulatory subject supports the diagnosis of Diabetes Mellitus. Glu2: Cleaned Meter Normal [facility] [place] [facility] [address] DO Work Phone: [phone] Comment on above: PERFORMED BY:[place] [address] [place], [place] [phone] MEDICAL DIRECTORDREW REAL M.D. 137\S\137 Normal [facility] [address] DO Work Phone: [phone] Comment on above: Random Glucose Refer ence Range is dependent on time and content of last meal. Glucose of more than 200 mg/dL in a nonstressed, ambulatory subject supports the diagnosis of Diabetes Mellitus. 0.0\S\0.0 Normal 0-0.5 [facility] [address] DO Work Phone: [phone] Comment on above: PERFORMED BY:[facility] [place], [place] [phone] MEDICAL DIRECTORDREW REAL M.D. 0.8\S\0.8 Normal 0.0-0.8 [facility] [address] DO Work Phone: [phone] 1.1\S\1.1 Normal 1.00-4.8 [facility] [address] DO Work Phone: [phone] 11.7\S\11.7 Normal 6.0-15.0 [facility] [address] DO Work Phone: 0.2\S\0.2 Normal . [facility] [address] DO Work Phone: 0.1\S\0.1 Normal . [facility] [address] DO Work Phone: 6.1\S\6.1 Normal . [facility] [address] DO Work Phone: 8.2\S\8.2 Normal . [facility] [address] DO Work Phone: 85.4\S\85.4 Normal . [facility] [address] DO Work Phone: 9.5\S\9.5 Normal 6.6-10.1 [facility] [address] DO Work Phone: 171\S\171 Normal 150-450 [facility] [address] DO Work Phone: 13.5\S\13.5 Normal 12.0-14.8 [facility] [address] DO Work Phone: 34.3\S\34.3 Normal 32.5-35.6 [facility] [address] DO Work Phone: 31.4\S\31.4 Normal 27.5-35.2 [facility] [address] DO Work Phone: 91.6\S\91.6 Normal 83.5-101 [facility] [address] DO Work Phone: 42.7\S\42.7 Normal 38.8-50.0 [facility] [address] DO Work Phone: 14.6\S\14.6 Normal 13.0-17.0 [facility] [address] DO Work Phone: 4.66\S\4.66 Normal 3.90-5.60 [facility] [address] DO Work Phone: 13.6\S\13.6 above high threshold 4.1-10.5 [facility] [address] [address] DO Work Phone: [phone] > 60.0 Normal [facility] [address] [address] DO Work Phone: 74.81\S\74.81 Normal [facility] [address] [address] DO Work Phone: 9.4\S\9.4 Normal 8.6-10.3 [facility] [place] [address] DO Work Phone: 27.1\S\27.1 Normal 21.0-31.0 [facility] [address] [address] DO Work Phone: 103\S\103 Normal 98-107 [facility] [address] [address] DO Work Phone: [phone] 3.8\S\3.8 Normal 3.5-5.1 [facility] [address] [address] DO Work Phone: 138\S\138 Normal 136-145 [facility] [address] [address] DO Work Phone: 0.71\S\0.71 Normal 0.70-1.30 [facility] [address] [address] DO Work Phone: [phone] 12\S\12 Normal 7-25 [facility] [address] [address] DO Work Phone: 162\S\162 above high threshold 70-100 [facility] [address] [address] DO Work Phone: [phone] Comment on above: Random Glucose Refer ence Range is dependent on time and content of last meal. Glucose of more than 200 mg/dL in a nonstressed, ambulatory subject supports the diagnosis of Diabetes Mellitus. ADA recommended reference range 2.9\S\2.9 Normal <5.0 [facility] [address] [address] DO Work Phone: [phone] Comment on above: PERFORMED BY:[facility] [place], [place] [phone] MEDICAL DIRECTORDREW REAL M.D. 24\S\24 Normal [place] [address] DO Work Phone: 124\S\124 Normal 0-149 [place] [address] DO Work Phone: Comment on above: TRIG ATP III CLASSIF ICATION TRIG less than 150 mg/dL Normal TRIG 150-199 mg/dL Borderline high TRIG 200-500 mg/dL High TRIG greater than 500 mg/dL Very high Standard traceable to the Center for Disease Conrtrol and Prevention (CDC) test method. 45\S\45 Normal 23-92 [place] [address] DO Work Phone: Comment on above: HDL CHOL ATP-III CLA SSIFICATION Cardiovascular Risk HDL > or equal to 60 mg/dL LOW HDL < 40 mg/dL HIGH 97077.9\S\91217.9 Critically high 0.0-20.0 [place] [address] DO Work Phone: Comment on above: Critical Result : Ca lled to and read back by: MARC BUSTILLOS at: 08/21/2022 06:30:29 by:[id number] BY:[place] [address] [place], [place] [phone] MEDICAL DIRECTORDREW REAL M.D. 12897.9\S\01359.9 Critically high 0.0-20.0 [place] [address] DO Work Phone: Comment on above: Critical Result : Ca lled to and read back by: RIDGE WATERS at: 08/21/2022 04:23:36 by:[id number] BY:[place] [address] [place], [place] [phone] MEDICAL DIRECTORDREW REAL M.D. 72778.3\S\23636.3 Critically high 0.0-20.0 [place] [address] DO Work Phone: Comment on above: Critical Result : Ca lled to and read back by: SALLY BUSTILLOS at: 08/21/2022 00:52:26 by:[id number] BY:[facility] [place], [place] [phone] MEDICAL DIRECTORDREW REAL M.D. Serum or plasma high density lipoprotein (HDL) cholesterol measurementOrdered By: Steven Zamora on 08-21-2022 Cholesterol in HDL [Mass/Vol] 45 mg/dL 23-92 [facility] Comment on above: HDL CHOL ATP-III CLA SSIFICATION Cardiovascular RiskHDL > or equal to 60 mg/dL LOWHDL < 40 mg/dL HIGH Serum or plasma total choles terol/high density lipoprotein (HDL) cholesterol mass ratOrdered By: Steven Zamora on 08-21-2022 Cholesterol.total/Reny sterol in HDL [Mass ratio] 2.9 {ratio} <5.0 [facility] Triglyceride [Mass/volume] i n Serum or PlasmaOrdered By: Steven Zamora on 08-21-2022 Triglyceride [Mass/Vol] 124 mg/dL 0-149 [facility] Comment on above: TRIG ATP III CLASSIF ICATIONTRIG less than 150 mg/dL NormalTRIG 150-199 mg/dL Borderline highTRIG 200-500 mg/dL High TRIG greater than 500 mg/dL Very highStandard traceable to the Center for Disease Conrtrol and Prevention (CDC) test method. Troponin I.cardiac [Mass/vol ume] in Serum or Plasma by Detection limit <= 0.01 ng/Ordered By: Steven Zamora on 08-21-2022 Troponin I.cardiac DL <= 0.01 ng/mL [Mass/Vol] 80018.9 pg/mL 0.0-20.0 [facility] Comment on above: Critical Result : Ca lled to and read back by: MARC BUSTILLOS at: 08/21/2022 06:30:29 by:[id number] Activated partial thrombopla stin time (aPTT) in platelet poor plasma by coagulation aOrdered By: Cirilo Wise on 08-20-2022 aPTT Coag (PPP) [Time] 25.1 s 25.1-36.5 [facility] Basophils Auto (Bld) [#/Vol] Ordered By: Cirilo Wise on 08-20-2022 Basophils (Bld) [#/Vol] 0.1 10*3/uL 0.0-0.2 [facility] Basophils/100 WBC Auto (Bld) Ordered By: Cirilo Wise on 08-20-2022 Basophils/100 WBC (Bld) 0.5 % . [facility] Calcium [Mass/volume] in Ser um or PlasmaOrdered By: Cirilo Wise on 08-20-2022 Calcium [Mass/Vol] 9.4 mg/dL 8.6-10.3 [facility] Carbon dioxide, total [Moles /volume] in Serum or PlasmaOrdered By: Cirilo Wise on 08-20-2022 CO2 [Moles/Vol] 24.3 mmol/L 21.0-31.0 [facility] Chloride [Moles/volume] in S jamin or PlasmaOrdered By: Cirilo Wise on 08-20-2022 Chloride [Moles/Vol] 105 mmol/L 98-107 [facility] Creatine kinase [Enzymatic a ctivity/volume] in Serum or PlasmaOrdered By: Cirilo Wise on 08-20-2022 CK [Catalytic activity/Vol] 115 U/L 30-223 [facility] Creatinine [Mass/volume] in Serum or PlasmaOrdered By: Cirilo Wise on 08-20-2022 Creatinine [Mass/Vol] 0.92 mg/dL 0.70-1.30 [facility] Eosinophils Auto (Bld) [#/Vo l]Ordered By: Cirilo Wise on 08-20-2022 Eosinophils (Bld) [#/Vol] 0.1 10*3/uL 0.0-0.45 [facility] Eosinophils/100 WBC Auto (Bl d)Ordered By: Cirilo Wise on 08-20-2022 Eosinophils/100 WBC (Bld) 1.3 % . [facility] Erythrocyte distribution wid th Auto (RBC) [Ratio]Ordered By: Cirilo Wise on 08-20-2022 Erythrocyte distribution width (RBC) [Ratio] 13.6 % 12.0-14.8 [facility] Glucose [Mass/volume] in Ser um or PlasmaOrdered By: Cirilo Wise on 08-20-2022 Glucose [Mass/Vol] 172 mg/dL 70-100 [facility] Comment on above: ADA recommended refe rence rangeRandom Glucose Reference Range is dependent on time and content of last meal. Glucose of more than 200 mg/dL in a nonstressed, ambulatory subject supports the diagnosis of Diabetes Mellitus. Hematocrit Auto (Bld) [Volum e fraction]Ordered By: Cirilo Wise on 08-20-2022 Hematocrit (Bld) [Volume fraction] 44.0 % 38.8-50.0 [facility] Hemoglobin [Mass/volume] in BloodOrdered By: Cirilo Wise on 08-20-2022 Hemoglobin (Bld) [Mass/Vol] 15.1 g/dL 13.0-17.0 [facility] Laboratory - CoagulationOrde red By: Cirilo Wise on 08-20-2022 PT Coag (PPP) [Time] 11.4 s 9.0-12.9 [facility] Leukocytes [#/volume] correc betty for nucleated erythrocytes in Blood by Automated counOrdered By: Cirilo Wise on 08-20-2022 WBC corrected for nucl RBC Auto (Bld) [#/Vol] 10.7 10*3/uL 4.1-10.5 [facility] Lymphocytes Auto (Bld) [#/Vo l]Ordered By: Cirilo Wise on 08-20-2022 Lymphocytes (Bld) [#/Vol] 2.8 10*3/uL 1.00-4.8 [facility] Lymphocytes/100 WBC Auto (Bl d)Ordered By: Cirilo Wise on 08-20-2022 Lymphocytes/100 WBC (Bld) 26.2 % . [facility] MCH Auto (RBC) [Entitic mass ]Ordered By: Cirilo Wise on 08-20-2022 MCH (RBC) [Entitic mass] 32.1 pg 27.5-35.2 [facility] MCHC Auto (RBC) [Mass/Vol]Or dered By: Cirilo Wise on 08-20-2022 MCHC (RBC) [Mass/Vol] 34.4 g/dL 32.5-35.6 [facility] MCV Auto (RBC) [Entitic vol] Ordered By: Cirilo Wise on 08-20-2022 MCV (RBC) [Entitic vol] 93.4 fL 83.5-101 [facility] Monocyte distribution width [Entitic volume] in Blood by AutomatedOrdered By: Cirilo Wise on 08-20-2022 Monocyte distribution width Auto (Bld) [Entitic vol] 16.35 % 0.00-20.00 [facility] Monocytes Auto (Bld) [#/Vol] Ordered By: Cirilo Wise on 08-20-2022 Monocytes (Bld) [#/Vol] 0.9 10*3/uL 0.0-0.8 [facility] Monocytes/100 WBC Auto (Bld) Ordered By: Cirilo Wise on 08-20-2022 Monocytes/100 WBC (Bld) 7.9 % . [facility] Natriuretic peptide B [Mass/ Vol]Ordered By: Cirilo Wise on 08-20-2022 Natriuretic peptide B (Bld) [Mass/Vol] 24.0 pg/mL 5-100 [facility] Neutrophils Auto (Bld) [#/Vo l]Ordered By: Cirilo Wise on 08-20-2022 Neutrophils (Bld) [#/Vol] 6.9 10*3/uL 1.8-7.7 [facility] Neutrophils/100 WBC Auto (Bl d)Ordered By: Cirilo Wise on 08-20-2022 Neutrophils/100 WBC (Bld) 64.1 % . [facility] No Panel Informationon 08-20 2529.3\S\2529.3 Critically high 0.0-20.0 [facility] [address] DO Work Phone: Comment on above: Critical Result : Ca lled to and read back by: ARY BUSTILLOS at: 08/20/2022 19:45:52 by:[id number] BY:[facility] [place], [place] [phone] MEDICAL DIRECTORDREW REAL M.D. No Panel InformationOrdered By: Cirilo Wise on 08-20-2022 Estimated GFR (CKD-EPI) > 60.0 mL/Min [facility] Creatinine Clearance (Chem 65.05 [facility] Nucleated erythrocytes [Pres ence] in Blood by Automated countOrdered By: Cirilo Wise on 08-20-2022 Nucleated RBC Auto Ql (Bld) 0.1 /100{WBC} 0-0.5 [facility] Platelet mean volume Auto (B ld) [Entitic vol]Ordered By: Cirilo Wise on 08-20-2022 Platelet mean volume (Bld) [Entitic vol] 9.7 fL 6.6-10.1 [facility] Platelet poor plasma interna tional normalized ratio (INR) by coagulation assay (relatOrdered By: Cirilo Wise on 08-20-2022 INR Coag (PPP) [Relative time] 1.0 {INR} [facility] Comment on above: INR Therapeutic Rang [...] 08-20-2022 Platelets (Bld) [#/Vol] 215 10*3/uL 150-450 [facility] Potassium [Moles/volume] in Serum or PlasmaOrdered By: Cirilo Wise on 08-20-2022 Potassium [Moles/Vol] 3.4 mmol/L 3.5-5.1 [facility] RBC Auto (Bld) [#/Vol]Ordere d By: Cirilo Wise on 08-20-2022 RBC (Bld) [#/Vol] 4.71 10*6/uL 3.90-5.60 [facility] Serum or plasma anion gap de terminationOrdered By: Cirilo Wise on 08-20-2022 Anion gap [Moles/Vol] 14.1 mmol/L 6.0-15.0 [facility] Sodium [Moles/volume] in Ser um or PlasmaOrdered By: Cirilo Wise on 08-20-2022 Sodium [Moles/Vol] 140 mmol/L 136-145 [facility] Troponin I.cardiac [Mass/vol ume] in Serum or Plasma by Detection limit <= 0.01 ng/Ordered By: Cirilo Wise on 08-20-2022 Troponin I.cardiac DL <= 0.01 ng/mL [Mass/Vol] 366.3 pg/mL 0.0-20.0 [facility] Comment on above: Critical Result : Ca lled to and read back by: SHANNON FERREIRA at: 08/20/2022 17:43:14 by:[id number] Urea nitrogen [Mass/volume] in Serum or PlasmaOrdered By: Cirilo Wise on 08-20-2022 Urea nitrogen [Mass/Vol] 15 mg/dL 7-25 [facility] WBC Auto (Bld) [#/Vol]Ordere d By: Cirilo Wise on 08-20-2022 WBC (Bld) [#/Vol] 10.7 10*3/uL 4.1-10.5 [facility] Office Visit (Cardiology)on 06-01-2022 Follow-up visit Diagnoses/Problems [...] Weight Tips; Status:Complete - Retrospective Authorization; Done: 01Jun2022 Some eating tips that can help you lose weight.; Status:Complete - Retrospective Authorization; Done: 01Jun2022 SocHx: Former smoker Tobacco Use Screening; Status:Complete; Done: [id number] Patient Instructions Please bring all medicines, vitamins, [...] in 1 year. Lab as scheduled with [place] Chief Complaint OLAF BRIONES is being seen [...] to retrieve his lab work from the [place] 5. We will see him back in [...] negative for complaint. Vitals Vital Signs Recorded: [id number] 10:52AMRecorded: 28Sum9946 10:34AM [id number], LUE, Sitting [id number], LUE, Sitting Heart Rate72, L Radial Height5 ft 6 in Ubcdxi178 lb BMI Kanuagzbbs45.73 kg/m2 BSA Calculated1.9 Tobacco Useb) No PHQ-2 #1. Over the last 2 weeks have you felt down, depressed (more content not included)... Normal [email or web address] XR KUB 1 VIEWon 10-26-2021 XR KUB [...] AMNA BALDWIN Date: 2021-10-26 10:33 Normal [facility] Office Visit (Cardiology)on 09-18-2021 Follow-up visit [...] lose weight.; Status:Complete - Retrospective Authorization; Done: [id number] SocHx: Former smoker Tobacco Use Screening; Status:Complete; Done: [id number] Tobacco Use Screening; Status:Complete; Done: [id number] Patient Instructions Please bring all medicines, vitamins, and herbal supplements with you when you come to the office. Prescriptions will not be filled unless you are compliant with your follow up appointments or have a follow up appointment scheduled as per instruction of your physician. Refills should be requested at the time of your visit. Bella Proctor LPN, am scribing for and in the [...] Recorded: 18Sep2021 10:16AM Heart Rate64, L Radial Stmxhghf551, (more content not included)... Normal [facility] Tobacco Screening.on 022 Fall risk assessment a) No falls within the last year [facility] 250 DO Work Phone: Tobacco use status [facility] b) No M [facility] [place] 250 DO Work Phone: [phone] IO EKG Electrocardiogram- 12 Leadon 11-24-2020 IO EKG Electrocardiogram- 12 Lead See Scanned Document [facility] 250 DO Work Phone: [phone] Tobacco Screening.on Fall risk assessment a) No falls within the last year [email or web address] 250 DO Work Phone: [phone] Tobacco use status [facility] b) No M [facility] [place] 250 DO Work Phone: [phone] Vital Signs Date Time Vital Sign Value Performing Clinician Facility 06-25-2024 14:08-0400 Body height 172.72 cm Dav Peguero MD Work Phone: [facility] 06-25-2024 14:08-0400 Body mass index (BMI) [Ratio] 27.5 kg/m2 Dav Peguero MD Work Phone: [facility] 06-25-2024 14:08-0400 Body weight 82.1 kg Dav Peguero MD Work Phone: [facility] 06-25-2024 14:08-0400 Diastolic blood pressure 70 mm[Hg] Dav Peguero MD Work Phone: [facility] 06-25-2024 14:08-0400 Heart rate 53 /min Dav Peguero MD Work Phone: [facility] 06-25-2024 14:08-0400 Respiratory rate 18 /min Dav Peguero MD Work Phone: [facility] 06-25-2024 14:08-0400 SaO2% (BldA) [Mass fraction] 98 % Dav Peguero MD Work Phone: [facility] 06-25-2024 14:08-0400 Systolic blood pressure 144 mm[Hg] Dav Peguero MD Work Phone: [facility] 05-05-2024 12:46-0400 Body height 175.[address] [facility] 05-05-2024 12:46-0400 Body mass index (BMI) [Ratio] 26.2 kg/m2 [facility] 05-05-2024 12:46-0400 Body temperature 98.3 [degF] [facility] 05-05-2024 12:46-0400 Body weight 80.[address] [facility] 05-05-2024 12:46-0400 Diastolic blood pressure 71 mm[Hg] [facility] 05-05-2024 12:46-0400 Heart rate 66 /min [facility] 05-05-2024 12:46-0400 Respiratory rate 16 /min [facility] 05-05-2024 12:46-0400 SaO2% (BldA) [Mass fraction] 96 % [facility] 05-05-2024 12:46-0400 Systolic blood pressure 135 mm[Hg] [facility] 04-02-2024 13:08-0500 Body height 175.3 cm Dav Peguero MD Work Phone: [facility] 04-02-2024 13:08-0500 Body mass index (BMI) [Ratio] 27.02 kg/m2 Dav Peguero MD Work Phone: [facility] 04-02-2024 13:08-0500 Body weight 83.01 kg Dav Peguero MD Work Phone: [facility] 04-02-2024 13:08-0500 Diastolic blood pressure 72 mm[Hg] Dav Peguero MD Work Phone: [facility] 04-02-2024 13:08-0500 Heart rate 72 /min Dav Peguero MD Work Phone: [facility] 04-02-2024 13:08-0500 SaO2% (BldA) [Mass fraction] 97 % Dav Peguero MD Work Phone: [facility] 04-02-2024 13:08-0500 Systolic blood pressure 138 mm[Hg] Dav Peguero MD Work Phone: [facility] 03-27-2024 08:54-0500 Blood Pressure Location Shanna IVORY [facility] 03-27-2024 08:54-0500 Body temperature 98.6 [degF] Shanna IVORY [facility] 03-27-2024 08:54-0500 Diastolic blood pressure 76 mm[Hg] Shanna IVORY [facility] 03-27-2024 08:54-0500 Heart rate 68 /min Shannasuresh IVORY [facility] 03-27-2024 08:54-0500 Respiratory rate 16 /min Shanna IVORY [facility] 03-27-2024 08:54-0500 Systolic blood pressure 135 mm[Hg] Shanna IVORY [facility] 03-13-2024 11:12-0500 Body height 172.7 cm Ashutosh Ling MD Work Phone: [facility] 03-13-2024 11:12-0500 Body mass index (BMI) [Ratio] 28.43 kg/m2 Ashutosh Ling MD Work Phone: [facility] 03-13-2024 11:12-0500 Body weight 84.82 kg Ashutosh Ling MD Work Phone: [facility] 03-13-2024 11:12-0500 Diastolic blood pressure 58 mm[Hg] Ashutosh Ling MD Work Phone: [facility] 03-13-2024 11:12-0500 Heart rate 56 /min Ashutosh Ling MD Work Phone: [facility] 03-13-2024 11:12-0500 Systolic blood pressure 126 mm[Hg] Ashutosh Ling MD Work Phone: [facility] 11-29-2023 09:02-0400 Blood Pressure Location Shanna IVORY [facility] 11-29-2023 09:02-0400 Body temperature 98.6 [degF] Shanna IVORY [facility] 11-29-2023 09:02-0400 Diastolic blood pressure 65 mm[Hg] Shanna IVORY [facility] 11-29-2023 09:02-0400 Heart rate 65 /min Shanna IVORY [facility] 11-29-2023 09:02-0400 Respiratory rate 16 /min Shanna IVORY [facility] 11-29-2023 09:02-0400 Systolic blood pressure 129 mm[Hg] Shanna IVORY [facility] 06-26-2023 15:02-0400 Body height 172.7 cm Ashutosh Ling MD Work Phone: [facility] 06-26-2023 15:02-0400 Body mass index (BMI) [Ratio] 26.15 kg/m2 Ashutosh Ling MD Work Phone: [facility] 06-26-2023 15:02-0400 Body weight 78.02 kg Ashutosh Ling MD Work Phone: [facility] 06-26-2023 15:02-0400 Diastolic blood pressure 68 mm[Hg] Ashutosh Ling MD Work Phone: [facility] 06-26-2023 15:02-0400 Heart rate 60 /min Ashutosh Ling MD Work Phone: [facility] 06-26-2023 15:02-0400 Systolic blood pressure 120 mm[Hg] Ashutosh Ling MD Work Phone: [facility] 01-09-2023 15:38-0500 Body height 172.7 cm Ashutosh Ling MD Work Phone: [facility] 01-09-2023 15:38-0500 Body mass index (BMI) [Ratio] 26.76 kg/m2 Ashutosh Ling MD Work Phone: [facility] 01-09-2023 15:38-0500 Body weight 79.83 kg Ashutosh Ling MD Work Phone: [facility] 01-09-2023 15:38-0500 Diastolic blood pressure 76 mm[Hg] Ashutosh Ling MD Work Phone: [facility] 01-09-2023 15:38-0500 Heart rate 58 /min Ashutosh Ling MD Work Phone: [facility] 01-09-2023 15:38-0500 Systolic blood pressure 142 mm[Hg] Ashutosh Ling MD Work Phone: [facility] 10-29-2022 11:35-0400 Body height 172.72 cm Estella Siddiqui Other [employer] Other 10-29-2022 11:35-0400 Body mass index (BMI) [Ratio] 26.64 kg/m2 Estella Siddiqui Other [employer] Other 10-29-2022 11:35-0400 Body temperature 98.2 [degF] Estella Siddiqui Other [employer] Other 10-29-2022 11:35-0400 Body weight 79.47 kg Estella Siddiqui Other [employer] Other 10-29-2022 11:35-0400 Diastolic blood pressure 76 mm[Hg] Estella Siddiqui Other [employer] Other 10-29-2022 11:35-0400 Respiratory rate 18 /min Estella Siddiqui Other [employer] Other 10-29-2022 11:35-0400 SaO2% (BldA) [Mass fraction] 98 % Estella Siddiqui Other [employer] Other 10-29-2022 11:35-0400 Systolic blood pressure 140 mm[Hg] Estella Siddiqui Other [employer] Other 09-05-2022 13:02-0400 Body height 167.64 cm Nahomi Hernandez Work Phone: [facility] [employer] 250 DO Work Phone: 09-05-2022 13:02-0400 Body mass index (BMI) [Ratio] 27.6 kg/m2 Nahomi Hernandez Work Phone: [facility] [employer] 250 DO Work Phone: 09-05-2022 13:02-0400 Body surface area Derived from formula 1.87 m2 Nahomi Bowers David Work Phone: [facility] 250 DO Work Phone: 09-05-2022 13:02-0400 Body weight 77.57 kg Nahomi Bowers David Work Phone: [facility] 250 DO Work Phone: 09-05-2022 13:02-0400 Diastolic blood pressure 54 mm[Hg] Nahomi Hernandez Work Phone: [facility] 250 DO Work Phone: 09-05-2022 13:02-0400 Heart rate 68 /min Nahomi Hernandez Work Phone: [facility] 250 DO Work Phone: 09-05-2022 13:02-0400 Systolic blood pressure 126 mm[Hg] Nahomi Hernandez Work Phone: [facility] 250 DO Work Phone: 08-27-2022 03:30-0400 Diastolic blood pressure 76 mm[Hg] [facility] 08-27-2022 03:30-0400 Heart rate 74 /min [facility] 08-27-2022 03:30-0400 Mean blood pressure 87 mm[Hg] [facility] 08-27-2022 03:30-0400 Respiratory rate 14 /min [facility] 08-27-2022 03:30-0400 SaO2% (BldA) [Mass fraction] 96 % [facility] 08-27-2022 03:30-0400 Systolic blood pressure 110 mm[Hg] [facility] 08-27-2022 03:00-0400 Diastolic blood pressure 80 mm[Hg] [facility] 08-27-2022 03:00-0400 Heart rate 80 /min [facility] 08-27-2022 03:00-0400 Mean blood pressure 97 mm[Hg] [facility] 08-27-2022 03:00-0400 Respiratory rate 15 /min [facility] 08-27-2022 02:30-0400 Diastolic blood pressure 73 mm[Hg] [facility] 08-27-2022 02:30-0400 Heart rate 96 /min [facility] 08-27-2022 02:30-0400 Mean blood pressure 92 mm[Hg] [facility] 08-27-2022 02:30-0400 Respiratory rate 20 /min [facility] 08-27-2022 02:30-0400 SaO2% (BldA) [Mass fraction] 98 % [facility] 08-27-2022 02:30-0400 Systolic blood pressure 130 mm[Hg] [facility] 08-26-2022 19:17-0400 Respiratory rate 18 /min [facility] 08-26-2022 18:11-0400 Respiratory rate 18 /min [facility] 08-26-2022 17:07-0400 Body temperature 97.7 [degF] [facility] 08-26-2022 17:07-0400 Heart rate 83 /min [facility] 08-26-2022 17:07-0400 Respiratory rate 18 /min [facility] 08-22-2022 15:50-0400 Body temperature 98.2 [degF] [facility] 08-22-2022 15:50-0400 Diastolic blood pressure 64 mm[Hg] [facility] 08-22-2022 15:50-0400 Heart rate 64 /min [facility] 08-22-2022 15:50-0400 Respiratory rate 18 /min [facility] 08-22-2022 15:50-0400 SaO2% (BldA) [Mass fraction] 99 % [facility] 08-22-2022 15:50-0400 Systolic blood pressure 124 mm[Hg] [facility] 08-22-2022 05:48-0400 Body weight [address] [facility] 08-21-2022 10:27-0400 70 1 Jame Musaight Work Phone: [facility] 250 DO Work Phone: Comment on above: [id number] 08-20-2022 18:32-0400 Body height 172.[address] [facility] 08-20-2022 17:13-0400 Heart rate 42 /min [facility] 08-20-2022 16:38-0400 Diastolic blood pressure 60 mm[Hg] [facility] 08-20-2022 16:38-0400 Respiratory rate 18 /min [facility] 08-20-2022 16:38-0400 SaO2% (BldA) [Mass fraction] 98 % [facility] 08-20-2022 16:38-0400 Systolic blood pressure 123 mm[Hg] [facility] 08-20-2022 16:25-0400 Body height 172.[address] [facility] 08-20-2022 16:25-0400 Body temperature 97.6 [degF] [facility] 08-20-2022 16:25-0400 Body weight 81.[address] [facility] 10-27-2021 08:55-0400 Blood Pressure Location Shanna IVORY [facility] 10-27-2021 08:55-0400 Diastolic blood pressure 76 mm[Hg] Shanna IVORY [facility] 10-27-2021 08:55-0400 Heart rate 64 /min Shanna IVORY [facility] 10-27-2021 08:55-0400 Respiratory rate 16 /min Shanna IVORY [facility] 10-27-2021 08:55-0400 Systolic blood pressure 125 mm[Hg] Shanna IVORY [facility] 03-07-2021 15:22-0500 Diastolic blood pressure 78 mm[Hg] Jame Barraza Work Phone: [facility] 250 DO Work Phone: 03-07-2021 15:22-0500 Systolic blood pressure 139 mm[Hg] Jame Barraza Work Phone: [facility] 250 DO Work Phone: 03-07-2021 14:47-0500 Body height 167.64 cm Jame Barraza Work Phone: [facility] 250 DO Work Phone: 03-07-2021 14:47-0500 Body mass index (BMI) [Ratio] 28.73 kg/m2 Jame Barraza Work Phone: [facility] 250 DO Work Phone: 03-07-2021 14:47-0500 Body surface area Derived from formula 1.9 m2 Jame Barraza Work Phone: [facility] 250 DO Work Phone: 03-07-2021 14:47-0500 Body weight 80.74 kg Jame Barraza Work Phone: [facility] 250 DO Work Phone: 03-07-2021 14:47-0500 Diastolic blood pressure 82 mm[Hg] Jame Barraza Work Phone: [facility] 250 DO Work Phone: 03-07-2021 14:47-0500 Heart rate 84 /min Jame Bowers Barraza Work Phone: [facility] 250 DO Work Phone: 03-07-2021 14:47-0500 Systolic blood pressure 172 mm[Hg] Jame Bowers Barraza Work Phone: [facility] 250 DO Work Phone: 11-24-2020 08:51-0400 Body height 167.64 cm Jame Bowers Barraza Work Phone: [facility] 250 DO Work Phone: 11-24-2020 08:51-0400 Body mass index (BMI) [Ratio] 28.08 kg/m2 Jame Bowers Barraza Work Phone: [facility] 250 DO Work Phone: 11-24-2020 08:51-0400 Body surface area Derived from formula 1.89 m2 Jame Bowers Barraza Work Phone: [facility] 250 DO Work Phone: 11-24-2020 08:51-0400 Body weight 78.93 kg Jame Bowers Barraza Work Phone: [facility] 250 DO Work Phone: 11-24-2020 08:51-0400 Diastolic blood pressure 82 mm[Hg] Jame Elissa Barraza Work Phone: [facility] 250 DO Work Phone: 11-24-2020 08:51-0400 Diastolic blood pressure 80 mm[Hg] Jame Elissa Barraza Work Phone: [facility] 250 DO Work Phone: 11-24-2020 08:51-0400 Heart rate 66 /min Jame Elissa Barraza Work Phone: [facility] 250 DO Work Phone: 11-24-2020 08:51-0400 Systolic blood pressure 136 mm[Hg] Jame Barraza Work Phone: [facility] 250 DO Work Phone: 11-24-2020 08:51-0400 Systolic blood pressure 138 mm[Hg] Jame Elissa Barraza Work Phone: [facility] 250 DO Work Phone: Encounters Encounter Date Encounter Type Care Provider Facility Start: 04-02-2025 ambulatory Shanna Yousif ty:[facility] Start: 08-17-2024 End: 08-17-2024 ambulatory Alonzo Briscoe MD Facility:[facility] Start: 07-31-2024 End: 07-31-2024 Clinisync Result Encounter Generic External Data Provider [facility] External Department Unsolicited Start: 07-31-2024 End: 07-31-2024 Clinisync Result Encounter Generic External Data Provider [facility] External Department Unsolicited Start: 06-25-2024 End: 06-25-2024 ambulatory Dav Peguero Facility:[facility] Start: 06-25-2024 End: 06-25-2024 Patient encounter procedure Dav Peguero MD Work Phone: [facility] Physician [facility] Work Phone: Start: 05-05-2024 End: 05-05-2024 ambulatory [facility] Work Phone: Start: 05-05-2024 End: 05-05-2024 Patient encounter procedure [facility] Physician [facility] [place] Work Phone: Start: 04-02-2024 End: 04-02-2024 Bamboo flowsjerry Peguero MD Work Phone: [facility] Start: 04-02-2024 End: 04-02-2024 Bamboo flowsjerry Peguero MD Work Phone: [facility] Start: 04-02-2024 End: 04-02-2024 Assay of hemosiderin, quant Dav Peguero MD Work Phone: [facility] Start: 04-02-2024 End: 04-02-2024 Patient encounter procedure Dav Peguero MD Work Phone: [facility] Comment on above: Routine general medi tawn[facility] examination at [facility] (Primary Dx); Benign essential hypertension ([facility]); Nocturia; Medicare annual wellness visit, initial; Type 2 diabetes mellitus without complication, without long-term current use of insulin (CMS/[facility]); Mixed hyperlipidemia (CMS/[facility]); Sciatica, unspecified laterality; Coronary artery disease of [place] artery of [place] heart with stable angina pectoris ([facility]/HCC) Start: 04-02-2024 End: 04-02-2024 ambulatory DAV PEGUERO Not Available Start: 03-27-2024 End: 03-27-2024 ambulatory Shanna IVORY Facility: [place] Start: 03-27-2024 End: 03-27-2024 Patient encounter procedure Shanna IVORY [facility] Start: 03-13-2024 End: 03-13-2024 Office outpatient visit 25 minutes Ashutosh Ling MD Work Phone: [facility] Comment on above: Arteriosclerotic car diovascular disease (Primary Dx); Post PTCA; Mixed hyperlipidemia; Abnormal EKG; Essential hypertension; Easy bruisability; Never smoked tobacco; BMI 28.0-28.9,adult Start: 12-13-2023 End: 12-13-2023 Clinisync Result Encounter Generic External Data Provider [facility] External Department Unsolicited Start: 12-13-2023 End: 12-13-2023 Clinisync Result Encounter Generic External Data Provider [facility] External Department Unsolicited Start: 11-29-2023 End: 11-29-2023 ambulatory Shanna IVORY Facility:[facility] Start: 11-29-2023 End: 11-29-2023 Patient encounter procedure Shanna IVORY [facility] Start: 06-26-2023 End: 06-26-2023 Office outpatient visit 25 minutes Ashutosh Ling MD Work Phone: [facility] Comment on above: Essential hypertensi on (Primary Dx); Arteriosclerotic cardiovascular disease; Abnormal EKG; Mixed hyperlipidemia; Post PTCA; BMI 26.0-26.9,adult; Never smoked tobacco Start: 06-26-2023 End: 06-26-2023 ambulatory [facility] Start: 06-18-2023 End: 06-18-2023 ambulatory LUCINDA Martinez RANCHO Not Available Start: 05-21-2023 End: 05-21-2023 ambulatory DAV Martinez SUDHIR Not Available Start: 03-12-2023 Patient encounter procedure Generic Provider [facility] Start: 01-09-2023 End: 01-09-2023 Office outpatient visit 25 minutes Ashutosh Ling MD Work Phone: [facility] Comment on above: Arteriosclerotic car diovascular disease (Primary Dx); Abnormal EKG; Mixed hyperlipidemia; Primary hypertension; Post PTCA; Essential hypertension; BMI 26.0-26.9,adult; Easy bruisability Start: 10-29-2022 End: 10-29-2022 ambulatory Estella Siddiqui Other [employer] Other Start: 10-29-2022 Office outpatient ne w 10 minutes Estella Siddiqui [facility] [place] Start: 10-01-2022 Rx Renewal Nahomi Hernandez Work Phone: [facility] 250 DO Work Phone: Start: 09-14-2022 Rx Renewal Nahomi Hernandez Work Phone: [facility] 250 DO Work Phone: Start: 09-06-2022 Telephone encounter Justine Katie R N Urology Comment on above: Patient Update Start: 09-05-2022 Office outpatient vi sit 25 minutes Nahomi Elissa David Work Phone: [facility] 250 DO Work Phone: Start: 09-05-2022 Patient encounter procedure Nahomi Elissa David Work Phone: [facility] 250 DO Work Phone: Start: 09-05-[address] Ashutosh Ling Facility: Start: 09-05-2022 End: 09-05-2022 Patient encounter procedure Alexandre KOROMA [facility] Start: 09-04-2022 Telephone encounter Deborah Ibarra RN NOC Comment on above: Follow Up Phone Call (All Clear) Start: 08-27-2022 End: 08-31-2022 Evaluation and management of inpatient DAVID ANDREWS Facility:[facility] Start: 08-26-2022 End: 08-27-2022 Emergency department patient visit Keith Panchal [facility] Start: 08-24-2022 Chart Update Jame Barraza Work Phone: [facility] 250 DO Work Phone: Start: 08-22-[address] Jame Barraza Facility:[id number] Start: 08-21-[address] Jame Barraza Facility:[id number] Start: 08-20-2022 End: 08-22-2022 Evaluation and management of inpatient [facility] Work Phone: Start: 08-20-2022 Admission to [facility] Work Phone: Start: 08-20-2022 ambulatory NON STAFF [facility] Work Phone: Start: 08-20-[address] Ben Zamora Facility:[id number] Start: 08-20-[address] Jame Barraza Facility:[id number] Start: 06-01-[address] Nahomi Hernandez Facility: Start: 10-27-2021 End: 10-27-2021 Patient encounter procedure Shanna IVORY [facility] Start: 10-26-2021 End: 10-27-[address] SHANNA IVORY Facility:[facility] Start: 05-04-2021 ambulatory DOMINGUEZ GUTIERREZ Faci lity:H1 Start: 03-07-2021 Office outpatient vi sit 25 minutes Jame Barraza Work Phone: [facility] 250 DO Work Phone: Start: 11-29-2020 Chart Update Jame Barraza Work Phone: [facility] 250 DO Work Phone: Start: 11-28-2020 Patient encounter procedure Jame Barraza Work Phone: [facility] [address] [place] Work Phone: Start: 11-24-2020 AUDIT Jame Barraza Work Phone: [facility] 250 DO Work Phone: Procedures Date Procedure Procedure Detail Performing Clinician Start: 07-31-2024 MR LUMBAR SPINE WO CON Generic External Data Provider Start: 04-02-2024 Hemoglobin glycosylated a1c Dav Peguero MD Work Phone: Start: 12-13-2023 ALL BUN Generic Ex ternal Data Provider Start: 12-13-2023 ALL CARBON DIOXIDE Gene braydon External Data Provider Start: 12-13-2023 ALL CHLORIDE Generic Ex ternal Data Provider Start: 12-13-2023 ALL PHOSPHOROUS Generic External Data Provider Start: 12-13-2023 ALL SODIUM Generic Ex ternal Data Provider Start: 12-13-2023 ALL URIC ACID Generic E xternal Data Provider Start: 12-13-2023 [facility] CALCIUM Generic Ex ternal Data Provider Start: 12-13-2023 [facility] CREATININE Generic External Data Provider Start: 12-13-2023 CALCIUM 24 HOUR URINE G eneric External Data Provider Start: 12-13-2023 CREATININE 24 HOUR URINE Generic External Data Provider Start: 12-13-2023 SODIUM 24 HOUR URINE Ge neric External Data Provider Start: 06-26-2023 FOLLOW UP IN CARDIOLOGY ASHUTOSH LING Start: 08-30-2022 Antibody screen DAVID PEREZ Comment on above: Order Comment: Speci men Type: BLOOD SPECIMENOrdering Facility: [facility] Address: [address] [place] [address] Performed By: #### T SCR ####CC MAIN BLOOD BANKCLIA [id number] [address] Start: 08-29-2022 Cysto w/irrig & evac multple obstructing clots Shanna IVORY Start: 08-29-2022 Trurl rescj residual/regrowth obstr prstate tiss Shanna IVORY Start: 08-27-2022 Antibody screen DAVID PEREZ Comment on above: Order Comment: Speci men Type: BLOOD SPECIMENOrdering Facility: [facility] Address: [address] [place] [address] Performed By: #### T SCR ####CC MAIN BLOOD BANKIA [id number] [address] Start: 08-20-[address] [...] wave lithotripsy of calculus of kidney Shanna CACHORRO Comment on above: LEFT History of placement of stent for coronary artery disease S/P coronary artery stent placement Dav Peguero MD Work Phone: Comment on above: 2022 Procedure on prostate Jame Elissa Christi Work Phone: Ureterocystostomy Nahomi blevins Work Phone: Urinary catheter placement S katie Hernandez Work Phone: NEGATED: Highlighted row has not occurred! Total colonoscopy Jame Elissa MusaBarraza Work Phone: Plan of Treatment Date Care Activity Detail Author Start: 03-27-2031 DTaP/Tdap/Td Vaccine s (2 - Td or Tdap) DTaP/Tdap/Td Vaccines (2 - Td or Tdap) [facility] Start: 03-27-2031 Urine microalbumin profile DTAP,TDAP,TD (2 - Td or Tdap) [facility] Start: 04-03-2025 Urine screening for protein Diabetes: Urine Protein Screening [facility] Start: 04-02-2025 Medicare Annual Well ness (AWV) Medicare Annual Wellness (AWV) [facility] Start: 11-27-2024 End: 11-27-2024 Patient encounter procedure 11/27/2024 10:50 AM EDT Office Visit [facility] [address] [facility] [address] [place] [id number] Ashutosh Ling MD [address] [facility] [address], [place] [address] [place] [address] [facility] Start: 06-30-2024 Hemoglobin A1c measurement Diabetes: Hemoglobin A1C [facility] Start: 06-25-2024 [facility] Start: 04-02-2024 End: 04-02-2025 CBC W Auto Differential panel - Blood CBC and differential Lab Routine Benign essential hypertension (CMS/HCC) Nocturia Medicare annual wellness visit, initial Type 2 diabetes mellitus without complication, without long-term current use of insulin (CMS/HCC) Mixed hyperlipidemia (CMS/HCC) Expected: 04/02/2024 (Approximate), Expires: 04/02/2025 [facility] Work Phone: Comment on above: Expected: 04/02/2024 (Approximate), Expires: 04/02/2025 Start: 04-02-2024 End: 04-02-2025 Comprehensive metabolic 2000 panel - Serum or Plasma Comprehensive metabolic panel Lab Routine Benign essential hypertension (CMS/HCC) Nocturia Medicare annual wellness visit, initial Type 2 diabetes mellitus without complication, without long-term current use of insulin (CMS/HCC) Mixed hyperlipidemia (CMS/HCC) Expected: 04/02/2024 (Approximate), Expires: 04/02/2025 [facility] Comment on above: Expected: 04/02/2024 (Approximate), Expires: 04/02/2025 Start: 04-02-2024 End: 04-02-2025 Lipid 1996 panel - Serum or Plasma Lipid panel Lab Routine Medicare annual wellness visit, initial Mixed hyperlipidemia (CMS/HCC) Expected: 04/02/2024 (Approximate), Expires: 04/02/2025 [facility] Comment on above: Expected: 04/02/2024 (Approximate), Expires: 04/02/2025 Start: 04-02-2024 End: 04-02-2025 Microalbumin/Creatinine panel in random Urine Microalbumin / creatinine urine ratio Lab Routine Medicare annual wellness visit, initial Type 2 diabetes mellitus without complication, without long-term current use of insulin (CMS/HCC) Expected: 04/02/2024 (Approximate), Expires: 04/02/2025 [facility] Comment on above: Expected: 04/02/2024 (Approximate), Expires: 04/02/2025 Start: 04-02-2024 End: 04-02-2025 Prostate specific Ag [Mass/volume] in Serum or Plasma PSA Lab Routine Nocturia Medicare annual wellness visit, initial Expected: 04/02/2024 (Approximate), Expires: 04/02/2025 [facility] Comment on above: Expected: 04/02/2024 (Approximate), Expires: 04/02/2025 Start: 04-02-2024 End: 04-02-2024 Patient encounter procedure 04/02/2024 1:00 PM EST Office Visit [facility] [address] [facility] [address] [place] [address] Dav Peguero MD [address] [facility] [address] [place] [address] Arrived [facility] Comment on above: Arrived Start: 03-15-2024 Urine screening for protein Diabetes: Urine Protein Screening [facility] Start: 03-13-2024 End: 03-13-2024 Patient encounter procedure 03/13/2024 11:20 AM EST Office Visit [address] [phone] Ashutosh Ling MD [address] [facility] [address], [facility] [address] [place] [address] [facility] Start: 03-12-2024 Medicare Annual Well ness (AWV) Medicare Annual Wellness (AWV) [facility] Start: 10-20-2023 COVID-19 Vaccine ( season) COVID-19 Vaccine ( season) [facility] Start: 10-20-2023 Influenza vaccination Influenza Vacc ine (#1) [facility] Start: 09-17-2023 Hemoglobin A1c measurement Diabetes: Hemoglobin A1C [facility] Start: 06-26-2023 End: 06-26-2023 Patient encounter procedure 06/26/2023 3:10 PM EDT Office Visit [address] [phone] Ashutosh Ling MD [address] [facility] [address], [address] [address] [facility] Start: 06-07-2023 FUV, Provider: Ashutosh Ling, Status: Pen, Time: 11:20 AM FUV, Provider: Ashutosh Ling, Status: Pen, Time: 11:20 AM [facility] 250 DO Work Phone: Start: 01-09-2023 FUV, Provider: Ashutosh Ling, Status: Pen, Time: 3:30 PM FUV, Provider: Ashutosh Ling, Status: Pen, Time: 3:30 PM [facility] 250 DO Work Phone: Start: 10-19-2022 COVID-19 Vaccine ( season) COVID-19 Vaccine () [facility] Start: 10-19-2022 Influenza vaccination INFLUENZA (#1) [facility] Start: 09-05-2022 FUV, Provider: Ashutosh Ling, Status: Pen, Time: 12:50 PM FUV, Provider: Ashutosh Ling, Status: Pen, Time: 12:50 PM [facility] Work Phone: Start: 08-22-2022 [facility] Start: 08-20-2022 Consultation [facility] Start: 08-20-2022 Referral to cardiac rehabilitation program [facility] Start: 08-20-2022 [facility] Start: 08-20-2022 End: 08-20-2022 Hospital admission [facility] Start: 02-18-2022 ADVANCE DIRECTIVE DISCUSSION ADVANCE DIRECTIVE DISCUSSION [facility] Start: 02-18-2022 DEPRESSION ASSESSMENT DEPRESSION ASS ESSMENT [facility] Start: 08-30-2021 FUV, Provider: Ashutosh Ling, Status: Pen, Time: 2:30 PM FUV, Provider: Ashutosh Ling, Status: Pen, Time: 2:30 PM [facility] Work Phone: Start: 04-03-2021 COVID-19 VACCINE (4 - Pfizer series) COVID-19 VACCINE (4 - Pfizer series) [facility] Start: 03-07-2021 FUV, Provider: Ashutosh Ling, Status: Pen, Time: 2:50 PM FUV, Provider: Ashutosh Ling, Status: Pen, Time: 2:50 PM [facility] 250 DO Work Phone: Start: 11-28-2020 EVENT ELIEZER, Provider : [facility] CL[facility] 1,[id number], Status: Pen, Time: 10:30 AM EVENT ELIEZER, Provider: [facility] CL[facility] 1,[id number], Status: Pen, Time: 10:30 AM [facility] 250 DO Work Phone: Start: 2020 RSV High Risk: (Elde rly (60+) or Population) (1 - 1-dose 75+ series) RSV High Risk: (Elderly (60+) or Population) (1 - 1-dose 75+ series) [facility] Start: 2005 RSV patient s and/or patients aged 60+ years (1 - 1-dose 60+ series) RSV patients and/or patients aged 60+ years (1 - 1-dose 60+ series) [facility] Start: 06-18-1995 SHINGRIX VACCINE (1 of 2) SHINGRIX VACCINE (1 of 2) [facility] Start: 06-18-1995 Zoster Vaccines (1 of 2) Zoster Vacc tosha (1 of 2) [facility] Start: 06-18-1963 ANNUAL PCP TEAM GRIT BLASTER ATIF DISEASE VISIT ANNUAL PCP TEAM CHRONIC DISEASE VISIT [facility] Start: 06-18-1963 BP CONTROLLED (<130/80) BP CONTROLLE D (<130/80) [facility] Start: 06-18-1963 Diabetes mellitus screening Diabetes Screening [facility] Start: 06-18-1963 Hepatitis B surface antibody level LDL CHOLESTEROL [facility] Start: 06-18-1963 HEPATITIS C SCREENING HEPATITIS C [facility] Start: 06-18-1963 Hepatitis C screening Hepatitis C [facility] Start: 06-18-1955 3 comp foot exam completed DIABETIC FOOT EXAM [facility] Start: 06-18-1955 Glaucoma screening Diabetes: R etinopathy Screening [facility] Start: 06-18-1955 Hepatitis B screening URINE AL BUMIN:CREATININE RATIO [facility] Start: 06-18-1955 Hepatitis C antibody , confirmatory test DILATED RETINAL EXAM [facility] Start: 1950 Hemoglobin A1c/Hemoglobin.total in Blood HBA1C [facility] Start: 1945 Lipid panel Lipid Panel [facility] Start: 1945 Medicare Annual Well ness Visit Medicare Annual Wellness Visit (AWV) [facility] Patient Education Coronary Angio plasty (DC) Coronary Stenting (DC) Angina (DC) Chest Pain (DC) Drug Eluting Stents [facility] Work Phone: Patient referral [facility] Work Phone: Immunizations Immunization Date Immunization Notes Care Provider [facility] 11-18-2023 influenza, high dose seasonal, preservative-free Dav Peguero MD Work Phone: [facility] 11-06-2023 influenza, seasonal, injectable Ashutosh Ling MD Work Phone: [facility] Work Phone: 11-19-2022 influenza virus vaccine, unspecified formulation Shanna IVORY [facility] 11-19-2022 Influenza, High-dose Seasonal, Quadrivalent, Preservative Free Generic Provider [facility] 02-18-2022 influenza nasal, unspecified formulation Deborah Ibarra RN [facility] 02-18-2022 influenza virus vaccine, live, attenuated, for intranasal use Generic Provider [facility] 12-26-2021 Fluad Quadrivalent 0 .5 ML Intramuscular Prefilled Syringe Jame Barraza Work Phone: [facility] 12-26-2021 influenza virus vaccine, unspecified formulation Shanna IVORY [facility] 12-26-2021 influenza, high dose seasonal, preservative-free Ashutosh Ling MD Work Phone: [facility] Work Phone: 03-27-2021 tetanus toxoid, redu shruti diphtheria toxoid, and acellular pertussis vaccine, adsorbed Deborah Ibarra RN [facility] 02-06-2021 Pfizer-BioNTech COVID-19 Vacc 30 MCG/0.3ML Intramuscular Suspension Jame Barraza Work Phone: [facility] 11-18-2020 influenza nasal, unspecified formulation Deborah Ibarra RN [facility] 11-10-2020 Fluad Quadrivalent 0 .5 ML Intramuscular Prefilled Syringe Jame Barraza Work Phone: [facility] 11-10-2020 influenza virus vaccine, unspecified formulation Shanna IVORY [facility] 04-12-2020 Pfizer-BioNTech COVID-19 Vacc 30 MCG/0.3ML Intramuscular Suspension Jame Barraza Work Phone: [facility] Comment on above: Result Comment: 2022: [id number] 03-28-2020 COVID-19 original vaccine, age 12+ yr, monovalent (PFIZER-BIONTECH - PURPLE TOP) Deborah Ibarra RN [facility] 03-22-2020 Pfizer-BioNTech COVID-19 Vacc 30 MCG/0.3ML Intramuscular Suspension Jame Braraza Work Phone: [facility] Comment on above: Result Comment: 2022: TPV70 03-21-2020 SARS-CoV-2 (COVID-19 ) Ad26 vaccine, recombinant Shanna IVORY [facility] Comment on above: Result Comment: unab le to give exact dates 12-16-2019 influenza (HD-IIV4) vaccine, age 65+ yr, high dose, quadrivalent, PF (FLUZONE HIGH-DOSE) Deborah Ibarra RN [facility] 12-16-2018 AS03 adjuvant Deborah Ibarra RN [facility] 12-24-2017 AS03 adjuvant Deborah Ibarra RN [facility] 12-21-2016 influenza, high dose seasonal, preservative-free Deborah Ibarra RN [facility] 02-19-2016 pneumococcal polysaccharide vaccine, 23 valent Jame Barraza Work Phone: [facility] Comment on above: Series: 11-23-2015 influenza virus vaccine, unspecified formulation Shanna IVORY [facility] 11-23-2015 influenza, high dose seasonal, preservative-free Jame Barraza Work Phone: [facility] 10-20-2015 influenza nasal, unspecified formulation Deborah Ibarra RN [facility] 11-06-2014 influenza nasal, unspecified formulation Deborah Ibarra RN [facility] 11-06-2014 pneumococcal conjuga te vaccine, 13 valent Deborah Ibarra RN [facility] Payers Date Payer Category Payer Self-pay 2022 Medicare (Managed Care) [id number]. [id number] 2022 Medicare [id number] 2022 Medicare [id number] 1959 Medicare [id number] 1959 Private Health Insurance CAP [id number] 1945 Unknown [id number] 1945 Unknown [id number] [id number] 1945 Unknown [id number] 2..[id number] 1945 Unknown [id number] [id number] 1945 Unknown [id number] [id number] 1945 Unknown [id number] 2.16.840.1.457675.3.579.2.356 1945 Unknown [id number] 2.16.840.1.452100.3.579.2.356 1945 Unknown [id number] 2.16.840.1.818138.3.579.2.356 1945 Unknown [id number] 2.16.840.1.074493.3.579.2.1244 1945 Unknown [id number] 2.16.840.1.027170.3.579.2.727 1945 Unknown [id number] 2.16.840.1.336086.3.579.2.727 1945 Unknown [id number] 2.16.840.1.381019.3.579.2.727 1945 Unknown [id number] 2.16.840.1.480404.3.579.2.1259 1945 Unknown [id number] 2.16.840.1.328792.3.579.2.1259 1945 Unknown [id number] 2.16.840.1.115705.3.579.2.1259 1945 Unknown [id number] [id number] Private Health Insurance [facility] [id number] Unknown Unknown [id number] Social History Date Type Detail Facility Start: 01-08-2023 End: 04-02-2024 No alcohol use No alcohol use [facility] Work Phone: Comment on above: 1 cup of coffee edelmira y; former cigar smoker; Start: 10-21-2020 End: 10-31-2022 Tobacco smoking status Never smoked tobacco (finding) [facility] Start: 01-08-2023 End: 04-02-2024 Sex Assigned At Male [facility] Start: 1945 Sex Assigned At Male F [facility] Tobacco smoking stat [facility] Tobacco smoking consumption unknown [facility] Start: 1945 Sex Assigned At Not on file C [facility] Start: 01-08-2023 [facility] Work Phone: History of tobacco use Current smoker [facility] Work Phone: History of tobacco use Cigar Smoker [facility] Work Phone: Start: 10-31-2022 End: 01-08-2023 Tobacco use and exposure Smokeless tobacco non-user [facility] Work Phone: Start: 01-09-2023 End: 06-26-2023 Alcohol intake Ex-drinker (finding) [facility] Work Phone: Start: 12-30-2022 End: 03-13-2024 Exposure to SARS-CoV-2 (event) Not sure [facility] Tobacco smoking status Never [facility] Start: 06-18-2023 End: 04-02-2024 Alcoholic beverage intake Defer [facility] Start: 03-13-2024 Alcoholic beverage intake Lifetime non-drinker (finding) [facility] Work Phone: Start: 05-05-2024 End: 06-26-2024 Sex Male (finding) [facility] Medical Equipment Procedure Code Equipment Code Equipment Origin al Text Equipment Identifier Dates CL STENT BISHOP FRONTIER 3.0 X 26 FDA Start: 08-20-2022 Femoral artery closure plug/patch, synthetic polymer [id number] FDA Start: 08-20-2022 CL STENT BISHOP FRONTIER 3.0 X 26 FDA Start: 08-20-2022 CL STENT BISHOP FRONTIER 3.0 X 26 FDA Start: 08-20-2022 CL STENT BISHOP FRONTIER 3.0 X 26 FDA Start: 08-20-2022 Goals Date Patient Goal Desired Activity /State Functional Status Date Assessment Result Facility 03-27-2024 Functional Status N/A [facility] 11-29-2023 Functional Status N/A [facility] 08-26-2022 Functional Status N/A [facility] 08-22-2022 Functional status Patient at Baseline [facility] Work Phone: 10-27-2021 Functional Status N/A [facility] Mental Status Date Assessment Result Facility 08-22-2022 Cognitive function Cognitive Sta tus Patient at Baseline [facility] Work Phone: Clinical Notes 10-27-2021 to 05-05-2024 Note Date & Type Note Facility 05-05-2024 Evaluation note Diagnosis Onset Date Resolution Bilateral impacted cerumen noneactive May 05, 2024 12:34pm [facility] Work Phone: 1(795) 789-638503-18-2025 Evaluation note* Diagnosis Onset Date Resolution Status Admit Date Bilateral impacted cerumen noneactiv e May 05, 2024 12:34pm Coronary artery disease involving [place] coronary artery of [place] heart [place] acute June 1:39pm Essential (primary) hypertension acute June 25, 2024 1: 39pm Mixed hyperlipidemia acute June 25, 2024 1:39pm S/P coronary artery stent placement acute June 25, 2024 1: 39pm [facility] Work Phone: 1(326) 104-460202-13-2025 History of Present illness Narrative* Dav Peguero MD - 04/02/2024 1:32 PM ESTAssociated Problem(s): Medicare annual wellness visit, initial Colonoscopy every 10 years or Cologuard every 3 years ages 50-75 Flu Vaccine yearly Pneumovax and Prevnar Mammo yearly for women and PSA yearly for men Labs/Screening yearly to rule out Diabetes, Chronic Kidney disease and liver disease Hepatitis Screen forat risk populations Shingles vaccine after65 if indicated Tetanus Vaccine every 10 years Lipids yearly under the age of 75 If Smoking history: one time CT scan of chest and Ultrasound of Aorta to screen for Anuerysm * Dav Peguero MD - 04/02/2024 1:31 PM ESTAssociated Problem(s): Type 2 diabetes mellitus without complication, without long-term current useof insulin (CMS/[facility]) No Tobacco use Follow ADA 1800 diet low carbohydrate Continue Med Compliance Goal LDL less than 100Goal BP 130/80 Goal HgbA1c < 7.0% Monitor Feet, monitor for infection Needs Exercise Yearly eye exams Prior to your visit today we reviewed your chart and outlined testing and treatment needed foryour care. Reviewed poissble complications of diabetes including, loss of vision, kidney failure and increased risk of heart attacks and stroke. We made recommendations on how to control your blood sugars, and minimize your risk of these complications. We discussed your current barriers to a healthy living and importance of healthy diet and exercise. * Dav Peguero MD - 04/02/2024 1:00 PM EST Images from the original note were not included. Subjective : Chief Complaint: Olaf Briones is an 78 y.o. male here for an annual wellness visit. I have reviewed and reconciled the history and medication list with the patient today. Current Outpatient Medications Medication Sig Dispense Refill clopidogrel (Plavix) 75 MG tablet Take 75 mg by mouth in the morning. allopurinol (Zyloprim) 300 MG tablet Take by mouth. amLODIPine (Norvasc) 5 MG tablet Take by mouth Daily. atorvastatin (Lipitor) 80 MG tablet Take 80 mg by mouth in the morning. carvedilol (Coreg) 6.25 MG tablet TAKE 1 TABLET BY MOUTH TWICE A DAY WITH A MEAL/FOOD citalopram (CeleXA) 10 MG tablet TAKE 1 TABLET (10 MG) BY MOUTH DAILY. 90 tablet 1 [facility] Aspirin Low Dose 81 MG EC tablet TAKE 1 TABLET BY MOUTH EVERY DAY FOR 14 DAYS lisinopril 2.5 MG tablet Take 2.5 mg by mouth in the morning. nitroglycerin (Nitrostat) 0.[address] 0.4 mg under the tongue. ticagrelor (Brilinta) 90 MG tablet Take 90 mg by mouth in the morning and 90 mg in the evening. No current facility-administered medications for this visit. Review of Systems Constitutional: Negative for chills, fatigue, fever and unexpected weight change. Respiratory: Negative for cough. Cardiovascular: Negative for chest pain. Gastrointestinal: Negative for abdominal pain, blood in stool, constipation, diarrhea, nausea and vomiting. Genitourinary: Negative for dysuria, enuresis, frequency and hematuria. Musculoskeletal: Negative for back pain. Neurological: Negative for dizziness, tremors, syncope, facial asymmetry and speech difficulty. Psychiatric/Behavioral: Negative for agitation, behavioral problems, confusion and dysphoric mood. The patient is not nervous/anxious. List of current healthcare providers: Patient Care Team: Dav Peguero MD as PCP - General (Family Medicine) Dav Peguero MD as PCP - [employer] Medicare Annual Visit Over the past 2 weeks, how often have you been bothered by any of the following problems? Little interest or pleasure in doing things: Not at all Feeling down, depressed, or hopeless: Not at all Patient Health Questionnaire-2 Score: 0 Viveros Fall Risk History of Falling, Immediate or Within 3 Months: Yes Health Risk Assessment Form Do you need help eating, bathing, using the toilet, dressing, or getting around your home?: No Can you prepare your own meals?: Yes Can you do your own housework without help?: Yes Can you shop for groceries or clothes without help?: Yes Do you exercise for about 20 minutes 3 or more days a week?: Yes How confident are you that you can control and manage most of your health problems?: Very confident Can you mange your money, credit cards and accounts, pay bills and taxes?: Yes Vision Screening: Yes, no gross abnormalities Hearing Screening: Yes, no gross abnormalities Cognitive Screening Self Assessment: No overt cognitive deficiency is apparent by direct observation Three Word Registration: Banana, [place], Chair Clock Drawing: Normal Clock - 2 Three Word Recall: 1/3 words correct - 1 Total Score (0-5 Points): 3 Pain Assessment Pain Score: 5 - Moderate pain Advance Care Planning Do you have a living will?: Yes Do you have a medical power of geography head?: Yes Objective : BP 138/72 Pulse 72 Ht 5' 9 Wt 183 lb SpO2 97% BMI 27.02 kg/m No results found. Physical Exam Vitals reviewed. Constitutional: Appearance: Normal appearance. HENT: Head: Normocephalic. Neck: Vascular: No carotid bruit. Cardiovascular: Rate and Rhythm: Normal rate and regular rhythm. Pulses: Normal pulses. Pulmonary: Effort: Pulmonary effort is normal. Breath sounds: Normal breath sounds. Neurological: General: No focal deficit present. Mental Status: He is alert and oriented to person, place, and time. Psychiatric: Mood and Affect: Mood normal. Assessment/Plan : The following health maintenance schedule was reviewed with the patient and provided in printed form in the after visit summary: Health Maintenance Topic Date Due Diabetes: Retinopathy Screening Never done Medicare Annual Wellness (AWV) 03/12/2024 Diabetes: Urine Protein Screening 03/15/2024 Diabetes: Hemoglobin A1C 06/30/2024 Influenza Vaccine Completed Pneumococcal Vaccine: 65+ Years Completed Advance Care Planning Patient willing to discuss ACP. If in place, renew periodically. If not in place, recommend obtaining ACP. Assessment/Plan Problem List Items Addressed This Visit Coronary artery disease of [place] artery of [place] heart with stable angina pectoris ([facility]) Relevant Orders Ambulatory referral to Cardiology Type 2 diabetes mellitus without complication, without long-term current use of insulin ([facility]) No Tobacco use Follow ADA 1800 diet low carbohydrate Continue Med Compliance Goal LDL less than 100Goal BP 130/80 Goal HgbA1c < 7.0% Monitor Feet, monitor for infection Needs Exercise Yearly eye exams Prior to your visit today we reviewed your chart and outlined testing and treatment needed foryour care. Reviewed poissble complications of diabetes including, loss of vision, kidney failure and increased risk of heart attacks and stroke. We made recommendations on how to control your blood sugars, and minimize your risk of these complications. We discussed your current barriers to a healthy living and importance of healthy diet and exercise. Relevant Orders CBC and differential Comprehensive metabolic panel Microalbumin / creatinine urine ratio POCT Glycated hemoglobin, total (Completed) Mixed hyperlipidemia ([facility]) Relevant Orders CBC and differential Comprehensive metabolic panel Lipid panel Medicare annual wellness visit, initial Colonoscopy every 10 years or Cologuard every 3 years ages 50-75 Flu Vaccine yearly Pneumovax and Prevnar Mammo yearly for women and PSA yearly for men Labs/Screening yearly to rule out Diabetes, Chronic Kidney disease and liver disease Hepatitis Screen forat risk populations Shingles vaccine after65 if indicated Tetanus Vaccine every 10 years Lipids yearly under the age of 75 If Smoking history: one time CT scan of chest and Ultrasound of Aorta to screen for Anuerysm Relevant Orders CBC and differential Comprehensive metabolic panel Lipid panel PSA Microalbumin / creatinine urine ratio Sciatica Other Visit Diagnoses Routine general medical examination at health care facility - Primary Benign essential hypertension (CMS/HCC) Relevant Orders CBC and differential Comprehensive metabolic panel Nocturia Relevant Orders CBC and differential Comprehensive metabolic panel PSA Orders Placed This Encounter Procedures CBC and differential Standing Status: Future Number of Occurrences: 1 Standing Expiration Date: 04/02/2025 Order Specific Question: Print requisition? Answer: No Comprehensive metabolic panel Standing Status: Future Number of Occurrences: 1 Standing Expiration Date: 04/02/2025 Order Specific Question: Print requisition? Answer: No Lipid panel Standing Status: Future Number of Occurrences: 1 Standing Expiration Date: 04/02/2025 PSA Standing Status: Future Number of Occurrences: 1 Standing Expiration Date: 04/02/2025 Order Specific Question: Print requisition? Answer: No Microalbumin / creatinine urine ratio Standing Status: Future Number of Occurrences: 1 Standing Expiration Date: 04/02/2025 Order Specific Question: Print requisition? Answer: No Ambulatory referral to Cardiology Please fax to sarika erazo in [facility] on [address] Standing Status: Future Standing Expiration Date: 09/30/2024 Referral Priority: Routine Referral Type: Consultation Referral Reason: Specialty Services Required Requested Specialty: Cardiology Number of Visits Requested: 1 POCT Glycated hemoglobin, total Electronically signed by Dav Peguero MD on April 02, 2024 [facility] Discharge instructions Patient Education 03/27/2024 09:23:01 Dietary Guidelines to Help Prevent Kidney Stones Dietary Guidelines to Help Prevent Kidney Stones Kidney stones are deposits of minerals and salts that form inside your kidneys. Your risk of developing kidney stones may be greater depending on your diet, your lifestyle, the medicines you take, and whether you have certain medical conditions. Most people can lower their risks of developing kidney stones by following these dietary guidelines. Your dietitian may give you more specific instructions depending on your overall health and the type of kidney stones you tend to develop. What are tips for following this plan? Reading food labels Choose foods with no salt added or low-salt labels. Limit your salt (sodium) intake to less than 1,500 mg a day. Choose foods with calcium for each meal and snack. Try to eat about 300 mg of calcium at each meal.Foods that contain 200 500 mg of calcium a serving include: ?8 oz (237 mL) of milk, zmonwon-hqfxrlwymauc-dstny milk, and calcium- fortifiedfruit juice. Calcium-fortified means that calcium has been added to these drinks. ?8 oz (237 mL) of kefir, yogurt, and soy yogurt. ?4 oz (114 g) of tofu. ?1 oz (28 g) of cheese. ?1 cup (150 g) of dried figs. ?1 cup (91 g) of cooked broccoli. ?One 3 oz (85 g) can of sardines or mackerel. Most people need 1,000 1,500 mg of calcium a day. Talk to your dietitian about how much calcium is recommended for you. Shopping Buy plenty of fresh fruits and vegetables. Most people do not need to avoid fruits and vegetables, even if these foods contain nutrients that may contribute to kidney stones. When shopping for convenience foods, choose: ?Whole pieces of fruit. ?Pre-made salads with dressing on the side. ?Low-fat fruit and yogurt smoothies. Avoid buying frozen meals or prepared deli foods. These can be high in sodium. Look for foods with live cultures, such as yogurt and kefir. Choose high-fiber grains, such as whole-wheat breads, oat bran, and wheat cereals. Cooking Do not add salt to food when cooking. Place a salt shaker on the table and allow each person to addtheir own salt to taste. Use vegetable protein, such as beans, textured vegetable protein (TVP), or tofu, instead of meat inpasta, casseroles, and soups. Meal planning Eat less salt, if told by your dietitian. To do this: ?Avoid eating processed or pre-made food. ?Avoid eating fast food. Eat less animal protein, including cheese, meat, poultry, or fish, if told by your dietitian. To dothis: ?Limit the number of times you have meat, poultry, fish, or cheese each week. Eat a diet free of meat at least 2 days a week. ?Eat only one serving each day of meat, poultry, fish, or seafood. ?When you prepare animal proteins, cut pieces into small portion sizes. For most meat and fish, oneserving is about the size of the palm of your hand. Eat at least five servings of fresh fruits and vegetables each day. To do this: ?Keep fruits and vegetables on hand for snacks. ?Eat one piece of fruit or a handful of berries with breakfast. ?Have a salad and fruit at lunch. ?Have two kinds of vegetables at dinner. You may be told to limit foods that are high in a substance called oxalate. These include: ?Spinach (cooked), rhubarb, beets, sweet potatoes, and [place] chard. ?Peanuts. ?Potato chips, bahraini fries, and baked potatoes with skin on. ?Nuts and nut products. ?Chocolate. If you regularly take a diuretic medicine, make sure to eat at least 1 or 2 servings of fruits or vegetables that are high in potassium each day. These include: ?Avocado. ?Banana. ?[place], prune, carrot, or tomato juice. ?Baked potato. ?Cabbage. ?Beans and split peas. Lifestyle Drink enough fluid to keep your urine pale yellow. This is the most important thing you can do. Spread your fluid intake throughout the day. If you drink alcohol: ?Limit how much you have to: ?0 1 drink a day for women who are not . ?0 2 drinks a day for men. ?Know how much alcohol is in your drink. In the [place] one drink equals one 12 oz bottle of beer (355 mL), one 5 oz glass of wine (148 mL), or one 1 oz glass of hard liquor (44 mL). Lose weight if told by your health care provider. Work with your dietitian to find an eating plan and weight loss strategies that work best for you. General information Talk to your health care provider and dietitian about taking daily supplements. Depending on your health and the cause of your kidney stones, you may be told: ?Do not take high-dose supplements of vitamin C (1,000 mg a day or more). ?To take a calcium supplement. ?To take a daily probiotic supplement. ?To take other supplements such as magnesium, fish oil, or vitamin B6. Take buii-lfn-opnrlpi and prescription medicines only as told by your health care provider. These include supplements. What foods should I limit? Limit your intake of the following foods, or eat them as told by your dietitian. Vegetables Spinach. Rhubarb. Beets. Canned vegetables. Pickles. Olives. Baked potatoes with skin. Grains Wheat bran. Baked goods. Salted crackers. Cereals high in sugar. Meats and other proteins Nuts. Nut butters. Large portions of meat, poultry, or fish. Salted, precooked, or cured meats, such as sausages, meat loaves, and hot dogs. Dairy Cheeses. Beverages Regular soft drinks. Regular vegetable juice. Seasonings and condiments Seasoning blends with salt. Salad dressings. Soy sauce. Ketchup. Barbecue sauce. Other foods Canned soups. Canned pasta sauce. Casseroles. Pizza. Lasagna. Frozen meals. Potato chips. [place]akut fries. The items listed above may not be a complete list of foods and beverages you should limit. Contact a dietitian for more information. What foods should I avoid? Talk to your dietitian about specific foods you should avoid based on the type of kidney stones youhave and your overall health. Fruits Grapefruit. The item listed above may not be a complete list of foods and beverages you should avoid. Contact adietitian for more information. Summary Kidney stones are deposits of minerals and salts that form inside your kidneys. You can lower your risk of kidney stones by making changes to your diet. The most important thing you can do is drink enough fluid. Drink enough fluid to keep your urine pale yellow. Talk to your dietitian about how much calcium you should have each day, and eat less salt and animal protein as told by your dietitian. This information is not intended to replace advice given to you by your health care provider. Make sure you discuss any questions you have with your health care provider. Document Revised: 05/17/2022 Document Reviewed: 05/17/2022 Elsevier Patient Education 2023 [employer]. Follow Up Care 11/29/2023 09:51:27 With:CACHORRO HAHN, Shanna Sánchez, URL Address: [address] [place] [address] [place] [address]- When: Unknown [facility] Franca 02-07-2025 NotePatient Education Nephrology Dietary Guidelines to Help Prevent Kidney Stones Kidney stones are deposits of minerals and salts that form inside your kidneys. Your risk of developing kidney stones may be greater depending on your diet, your lifestyle, the medicines you take, and whether you have certain medical conditions. Most people can lower their risks of developing kidney stones by following these dietary guidelines. Your dietitian may give you more specific instructions depending on your overall health and the type of kidney stones you tend to develop. What are tips for following this plan? Reading food labels ??? Choose foods with no salt added or low-salt labels. Limit your salt (sodium) intake to lessthan 1,500 mg a day. ??? Choose foods with calcium for each meal and snack. Try to eat about 300 mg of calcium at each meal. Foods that contain 200?500 mg of calcium a serving include: ? 8 oz (237 mL) of milk, vpdsyvj-qlpcerltdnxh-yytls milk, and calcium- fortifiedfruit juice. Calcium-fortified means that calcium has been [...] much calcium is recommended for you. Shopping ??? Buy plenty of fresh fruits and vegetables. Most people do not need to avoid fruits and vegetables, even if these foods contain nutrients that may contribute to kidney stones. ??? When shopping for convenience foods, choose: ? Whole pieces of fruit. ? Pre-made salads with dressing on the side. ? Low-fat fruit and yogurt smoothies. ??? Avoid buying frozen meals or prepared deli foods. These can be high in sodium. ??? Look for foods with live cultures, such as yogurt and kefir. ??? Choose high-fiber grains, such as whole-wheat breads, oat bran, and wheat cereals. Cooking ??? Do not add salt to food when cooking. Place a salt shaker on the table and allow each person toadd their own salt to taste. ??? Use vegetable protein, such as beans, textured vegetable protein (TVP), or tofu, instead of meat in pasta, casseroles, and soups. Meal planning ??? Eat less salt, if told by your dietitian. To do this: ? Avoid eating processed or pre-made food. ? Avoid eating fast food. ??? Eat less animal protein, including cheese, meat, poultry, or fish, if told by your dietitian. To do this: ? Limit the number of times you have meat, poultry, fish, or cheese each week. Eat a diet free of meat at least 2 days a week. ? Eat only one serving each day of meat, poultry, fish, or seafood. ? When you prepare animal proteins, cut pieces into small portion sizes. For most meat and fish, one serving is about the size of the palm of your hand. ??? Eat at least five servings of fresh fruits and vegetables each day. To do this: ? Keep fruits and vegetables on hand for snacks. ? Eat one piece of fruit or a handful of berries with breakfast. ? Have a salad and fruit at lunch. ? Have two kinds of vegetables at dinner. ??? You may be told to limit foods that are high in a substance called oxalate. These include: ? Spinach (cooked), rhubarb, beets, sweet potatoes, and [place] chard. ? Peanuts. ? Potato chips, bahraini fries, and baked potatoes with skin on. ? Nuts and nut products. ? Chocolate. ??? If you regularly take a diuretic medicine, make sure to eat at least 1 or 2 servings of fruits or vegetables that are high in potassium each day. These include: ? Avocado. ? Banana. ? [place], prune, carrot, or tomato juice. ? Baked potato. ? Cabbage. ? Beans and split peas. Lifestyle ??? Drink enough fluid to keep your urine pale yellow. This is the most important thing you can do.Spread your fluid intake throughout the day. ??? If you drink alcohol: ? Limit how much you have to: ? 0?1 drink a day for women who are not . ? 0?2 drinks a day for men. ? Know how much alcohol is in your drink. In the [place] one drink equals one 12 oz bottle of beer (355 mL), one 5 oz glass of wine (148 mL), or one 1? oz glass of hard liquor (44 mL). ??? Lose weight if told by your health care provider. Work with your dietitian to find an eating plan and weight loss strategies that work best for you. General information ??? Talk to your health care provider and dietitian about taking daily supplements. Depending on your health and the cause of your kidney stones, you may be told: ? Do not take high-dose supplements of vitamin C (1,000 mg a day or more). ? To take a calcium supplement. ? To take a daily probiotic supplement. ? To take other supplements such as magnesium, fish oil, or vitamin B6. ??? Take hjye-iqo-dgtwilm and prescription medicines only as told by your health (more content not included)...[facility]01-24-2025 History of Present illness Narrative* Ashutosh Ling MD - 03/13/2024 11:20 AM EST Subjective Olaf Briones is a 78 y.o. male Chief Complaint Follow-up HPI Patient is here for follow-up under management for previous presentation with inferior wall myocardial infarction and angioplasty to the RCA with mild disease of the LAD, history of hypertension hyperlipidemia and easy bruisability. Since last time I saw him he denies any cardiac complaint of chestpain, palpitation, lightheadedness, dizziness or syncope. He reports his bruisability improved after we did reduce the dose of aspirin. [facility] Assessment 1. Previous presentation with acute inferior wall myocardial infarction and PCI to the RCA with moderate disease of the LAD last year in July 2. Easy bruisability due to dual antiplatelet therapy improved after we reduced the dose of aspirin 3. Hypertension controlled 4. Hyperlipidemia he [facility] 5. Borderline abnormal EKG 6. Borderline overweight 7. Previous history of dizziness improved and no recurrence 8. Recent history of hematuria improved after TURP and removal of bladder stone no recurrence Plan 1. I advised the patient to continue present medical therapy 2. Patient [facility] 3. We discussed risk factor modification 4. I I will see him back in the office in 9 months and follow-up 5. I I advised him to notify me change in cardiac status or symptoms 6. I given the permission to hold aspirin and Plavix for 3 days prior to his tooth extraction Review of Systems All other systems reviewed and are negative. Vitals: 03/13/24 1112 BP: 126/58 BP Location: Right arm Patient Position: Sitting Pulse: 56 Weight: 84.8 kg (187 lb) Height: 1.727 m (5' 8 ) [...] mg) by mouth every other day., Disp: , Rfl: atorvastatin (Lipitor) 40 mg tablet, Take 1 tablet (40 mg) by mouth once daily., Disp: , Rfl: carvedilol (Coreg) 3.125 mg tablet, Take 1 tablet (3.125 mg) by mouth 2 times a day with meals., Disp: 60 tablet, Rfl: 11 citalopram (CeleXA) 10 mg tablet, Take 1 tablet (10 mg) by mouth once daily., Disp: , Rfl: clopidogrel (Plavix) 75 mg tablet, Take 1 tablet (75 mg) by mouth once daily., Disp: 90 tablet, Rfl: 3 lisinopril 2.5 mg tablet, Take 1 tablet (2.5 mg) by mouth once daily., Disp: , Rfl: nitroglycerin (Nitrostat) 0.4 mg SL tablet, Place 1 tablet (0.4 mg) under the tongue. Place 1 tablet under the tongue every 5 minutes up to 3 doses as needed for chest pain. Call 911 if pain persists, Disp: , Rfl: Assessment/Plan 1. Arteriosclerotic cardiovascular disease Follow Up In Cardiology Follow Up In Cardiology 2. Post PTCA 3. Mixed hyperlipidemia 4. Abnormal EKG 5. Essential hypertension 6. Easy bruisability 7. Never smoked tobacco 8. BMI 28.0-28.9,adult Scribe Attestation By signing my name below, I, Denisse James RN , Scribe attest that this documentation has been prepared under the direction and in the presence of MD Susannah. Provider Attestation - Scribe documentation All medical record entries made by the Scribe were at my direction and personally dictated by me. Ihave reviewed the chart and agree that the record accurately reflects my personal performance of the history, physical exam, discussion and plan. documented in this [facility] Work Phone: [phone]) 156-100301-24-2025 Instructions* Patient Instructions* Denisse Mosher RN - 03/13/2024 11:20 AM EST Please bring all medicines, vitamins, and herbal supplements with you when you come to the office. Prescriptions will not be filled unless you are compliant with your follow up appointments or have a follow up appointment scheduled as per instruction of your physician. Refills should be requested at the time of your visit. BMI was above normal measurement. Current weight: 84.8 kg (187 lb) Weight change since last visit (-) denotes wt loss 15 lbs Weight loss needed to achieve BMI 25: 22.9 Lbs Weight loss needed to achieve BMI 30: -9.9 Lbs Provided instructions on dietary changes Provided instructions on exercise. documented in this [facility] Work Phone: 1(913) 966-420310-11-2024 Hospital Discharge instructions Patient Education 11/29/2023 09:42:02 24-Hour Urine Collection 24-Hour Urine Collection Why am I having this test? A 24-hour urine specimen is a lab test that requires you to collect all of your urine for an entireday. This is sometimes called a timed urine test. It can provide more information than a single urine sample. There are many reasons to have this test. Your health care provider may order the test to check foror monitor the following conditions: High blood pressure. Kidney disease. Kidney stones. Urinary tract infections. . Diabetes. How do I prepare for this test? You may be asked to follow a special diet during or before the collection period. Follow any instructions from your health care provider. If no special instructions are given, you may eat and drink normally. Take puaj-css-womoqmy and prescription medicines only as told by your health care provider. Let your health care provider know about any medicines that you are taking, including krzi-tux-pdkjorn medicines, vitamins, herbs, and supplements. Choose a [...] is okay. Do not throw out the liquidor rinse out the jug. Urinate into a [...] collect all of your urine for an entireday. When you get up in the morning, [...] provider. Document Revised: 08/11/2021 Document Reviewed: 08/11/2021 [employer] Patient Education 2023 [employer] 11/29/2023 09:40:32 Laser Therapy for Kidney [...] are painful or that are stopping you frombeing able to pee. Tell a health care provider about: Any allergies you have. All medicines you are taking, including vitamins, herbs, eye drops, creams, and uadp-kdr-debpkqd medicines. Any problems you or family members [...] unless your provider tells you to. ?Taking fjuf-vzo-jvmhrux medicines, vitamins, herbs, and supplements. Tests You [...] for at least 4 weeks before the procedure.These products include cigarettes, chewing tobacco, and vaping [...] blood oxygen level will be monitored until youleave the hospital or clinic. If you had [...] provider. Document Revised: 10/05/2022 Document Reviewed: 10/05/2022 [employer] Patient Education 2023 [employer]. Follow Up Care 11/26/2022 14:10:52 With:CACHORRO HAHN, Shanna Sánchez, JENNIFER Address: [facility] [address], [place] [address]- When: [facility] NotePatient Education Nephrology Laser Therapy for Kidney Stones [...] are painful or that are stopping you frombeing able to pee. Tell a health care provider about: ? Any allergies you have. ? All medicines you are taking, including vitamins, herbs, eye drops, creams, and alps-jjd-idqhvfq medicines. ? Any problems you or family [...] your provider tells you to. ? Taking zyhg-btx-objhyeg medicines, vitamins, herbs, and supplements. Tests ? [...] tube into your kidney. This can help removethe small pieces of the kidney stone. ? [...] a strainer to col (more content not included)...[facility]05-08-2024 History of Present illness Narrative* Ashutosh Ling MD - 06/26/2023 3:10 PM EDT Subjective Olaf Briones is a 78 y.o. [...] his lab work is done through the [place] [facility] Review of Systems Cardiovascular: Positive for [...] the direction and in the presence of MD Susannah. Provider Attestation - Scribe documentation All medical record entries made by the Scribe were at my direction and personally dictated by me. Ihave reviewed the chart and agree that the record accurately reflects my personal performance of the history, physical exam, discussion and plan. documented in this [facility] Work Phone: 1(878) 822-564605-08-2024 Instructions* Patient Instructions* Mandy Munoz LPN - 06/26/2023 3:10 PM [...] mg two times daily documented in this [facility] Work Phone: 1(729) 446-321911-22-2023 History of Present illness Narrative* Ashutosh Ling MD - 01/09/2023 3:30 PM EST Subjective Olaf Briones is a 77 y.o. [...] by mouth once daily at bedtime., Disp: ,Rfl: carvedilol (Coreg) 6.25 mg tablet, Take 1 [...] 26.0-26.9,adult 8. Easy bruisability [facility] Work Phone: 1(705) 243-386811-22-2023 Instructions* Patient Instructions* Travis Peter MA - 01/09/2023 3:30 PM [...] time of your visit. documented in [facility] Work Phone: [phone]) 959-251509-11-2023 Evaluation note* Encounter Date Diagnosis Assessment Notes Treatment Notes Treatment Clinical Notes Oct, Impacted cerumen of both ears (ICD-10 - H61.23) Cerumen impaction home care material was printed Drink plenty fluids, get plenty of rest. Continue home medications as prescribed. Follow-up with your family physician for any further concerns [employer] Other 07-20-2023 Miscellaneous Notes* Telephone Encounter - [...] called in. The pharmacy is not at [facility]. I will need to call them when its done. Dr Koroma is asking why he is on flomax? Please advise. documented in this encounterA[facility] Miscellaneous Notes* Telephone Encounter - Deborah Ibarra RN - 09/04/2022 12:51 PM EDT PATIENT INFORMATION Record ID: [id number] Patient Name: [facility]: [facility]: [facility] Attending: [facility]: Urology INSTRUCTIONS SN to remind patient of appointment date, time, location All Clear All Clear SURVEY INFORMATION Medical/Nurse Gameplay Engineer: Deborah Ibarra 1. Your discharge instructions are [...] symptoms? (Standard Question) No documented in this encounterAultman Orrville [facility]07-14-2023 NoteHNO ID: [id number] Author: Kathrin Dickerson RN Service: Care Management [...] Primary Care Physician Name/Phone: Jame Barraza MD [phone] Patient is medically stable for discharge, on RA, no dc needs. IMM provided on 08/30 by previous CM. Patients to discharge home. SIGNATURE: Kathrin Dickerson RN PATIENT NAME: Olaf Briones DATE: August 31, 2022 TIME: 9:40 AM CONTACT #: [phone] Hospital07-14-2023 Note HNO ID: [id number] Author: Danyell Morris MD Service: Critical Care Author Type: Anesthesiologist Type: Progress Notes Filed: 08/31/2022 2:15 PM Note Text: SERVICE DATE: 08/31/2022 SERVICE TIME: 8:54 AM SURGICAL INTENSIVE CARE UNIT PROGRESS NOTE BRIEF HPI: Olaf Briones is a 77 year old male with PMHx of recent STEMI on 08/20/22 (s/p JUHI),HTN, HLD, DM, nephrolithiasis, transferred from [facility] for gross hematuria. He is now s/p [...] Primary and SICU discussed patient transfer to [facility]. 08/30:no acute events. Hemodynamically stable. 08/31: No acute events. HDS. Patient is doing well and ready for transfer/discharge per Urology. Subjective INTERVAL EVENTS: Improved Objective MEDICATIONS: Current medications and allergies reviewed. Recommended/planned medication changes discussed in detail in the A/P section below. Please refer to Bundle It for list of inpatient medications. 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 Assessment: STEMI on 08/19/2022 s/p JUHI [...] (more content not included)...[facility]-14-[facility]23 NoteHNO ID: [id number] Author: Prema Feliz MD Service: Urology Author Type: Resident Type: Progress Notes Filed: 08/31/2022 6:45 AM Note Text: [facility] UROLOGY PROGRESS NOTE Name: Olaf Briones Bed: H050 013/H050-13 Date: 08/31/2022 After Hours [facility] U[facility] Service Pager: [phone] ASSESSMENT AND PLAN Olaf Briones is a 77 year old male with PMHx of HTN, HLD, DM, recent STEMI (s/p JUHI, on Brillinta and ASA), nephrolithiasis s/p ESWL , BPH s/p TURP 2001, transferred from [facility] for gross hematuria. Currently with 18Fr 3-way catheter on CBI. Now 3 Days Post-Op s/p cystoscopy, clot evacuation, cystolitholapaxy, TURP. Admitted to SICU postoperatively due to pressor requirements and risk of hyponatremia due to length of TURP. 22Fr [address] hernandez placed introp, on traction and CBI. Transferred to [facility] 08/30. Interval: - AFVSS - Doing well, [...] order flomax for home. Active Problems Prior AR POA: Yes - placed on ASA 81, ticagrelor 90 mg BID Nephrolithiasis POA: Yes - Monitor HLD POA: Yes - Home atorva 80 mg DM POA: Yes - SSI HTN POA: Yes - amlodipine 5mg daily, carvedilol 6.25 BID, lisinopril 2.5 mg daily Prema Feliz MD PGY-2 Resident Physician Urology Pager: [phone] For weekend or after hours issues [place] [phone] SUBJECTIVE See above Objective OBJECTIVE Vital Signs BP 114/56 Pulse 61 Temp 36.9 ?C (98.4 ?F) (Oral) Resp 15 Ht 173 cm (5' 8.11 ) Wt 77.9 kg (171 lb 11.8 oz) SpO2 95% BMI 26.03 kg/m? Input and Output Intake/Output Summary (Last 24 hours) at 08/31/2022 0645 Last data filed at 08/31/2022 0600 Gross per 24 hour Intake 6174.7 ml Output 65041 ml Net -5325.3 ml Physical Exam GEN: [...] Feliz MD PGY-2 Resident Physician Urology Pager: [phone] For weekend or after hours issues please page the on-call urology [place]ager [place] [phone] Hospital07-13-2023 NoteHNO ID: [id number] Author: Danyell Morris MD Service: Critical Care Author Type: Anesthesiologist Type: Progress Notes Filed: 08/30/2022 3:36 PM Note Text: SERVICE DATE: 08/30/2022 SERVICE TIME: 3:25 PM SURGICAL INTENSIVE CARE UNIT PROGRESS NOTE BRIEF HPI: Olaf Briones is a 77 year old male with PMHx of recent STEMI on 08/20/22 (s/p JUHI),HTN, HLD, DM, nephrolithiasis, transferred from [facility] for gross hematuria. He is now s/p [...] Primary and SICU discussed patient transfer to [facility]. 08/30:no acute events. Hemodynamically stable. Subjective INTERVAL EVENTS: hemodynamically stable. Objective MEDICATIONS: Current medications and allergies reviewed. Recommended/planned medication changes discussed in detail in the A/P section below. Please refer to Bundle It for list of inpatient medications. VITAL SIGNS: [...] Is Patient Clinically Ready to Transfer to [facility] or SDU?: Yes, transfer to SDU or [facility] today Discharge Planning: To be determined Prevention: [...] aspirin and ticagrelor Coronary artery disease involving united auburn coronary artery of united auburn heart Assessment: STEMI on 08/19/2022 s/p JUHI [...] (more content not included)...[facility]-13-[facility]23 NoteHNO ID: [id number] Author: Prema Feliz MD Service: Urology Author Type: Resident Type: Progress Notes Filed: 08/30/2022 7:12 AM Note Text: [facility] UROLOGY PROGRESS NOTE Name: Olaf Briones Bed: H050 013/H050-13 Date: 08/30/2022 After Hours [facility] Urology Service Pager: [phone] ASSESSMENT AND PLAN Olaf Briones is a 77 year old male with PMHx of HTN, HLD, DM, recent STEMI (s/p JUHI, on Brillinta and ASA), nephrolithiasis s/p ESWL remote, BPH s/p TURP 2001, transferred from [facility] for gross hematuria. Currently with 18Fr 3-way [...] discharge today vs tomorrow Active Problems Prior AR POA: Yes - placed on ASA 81, ticagrelor 90 mg BID Nephrolithiasis POA: Yes - Monitor HLD POA: Yes - Home atorva 80 mg DM POA: Yes - SSI HTN POA: Yes - amlodipine 5mg daily, carvedilol 6.25 BID, lisinopril 2.5 mg daily Prema Feliz MD PGY-2 Resident Physician Urology Pager: [phone] For weekend or after hours issues [place] [phone] SUBJECTIVE See above Objective OBJECTIVE Vital Signs BP 111/56 Pulse 61 Temp 36.7 ?C (98.1 ?F) (Axillary) Resp 12 Ht 173 cm (5' 8.11 ) Wt 84 kg (185 lb 3 oz) SpO2 96% BMI 28.07 kg/m? Input and Output Intake/Output Summary (Last 24 hours) at 08/30/2022 0558 Last data filed at 08/30/2022 0500 Gross per 24 hour Intake 6400 ml Output 50932 ml Net -4150 ml Physical Exam GEN: [...] Feliz MD PGY-2 Resident Physician Urology Pager: [phone] For weekend or after hours issues please page the on-call urology [place]ager at [phone] Hospital07-12-2023 NoteHNO ID: [id number] Author: Ary Frazier RN Service: Care Management [...] oxygen, or cpaps at home. Had recent AR in past. Cardiology on consult. No current [...] 29, 2022 TIME: 12:11 PM PAGER/CONTACT #: [phone] Hospital07-12-2023 NoteHNO ID: [id number] Author: Danyell Morris MD Service: Critical Care Author Type: Anesthesiologist Type: Progress Notes Filed: 08/29/2022 3:08 PM Note Text: SERVICE DATE: 08/29/2022 SERVICE TIME: 11:28 AM SURGICAL INTENSIVE CARE UNIT PROGRESS NOTE BRIEF HPI: Olaf Briones is a 77 year old male with PMHx of recent STEMI on 08/20/22 (s/p JUHI),HTN, HLD, DM, nephrolithiasis, transferred from [facility] for gross hematuria. He is now s/p [...] Primary and SICU discussed patient transfer to [facility]. Subjective INTERVAL EVENTS: Improved Objective MEDICATIONS: Current medications and allergies reviewed. Recommended/planned medication changes discussed in detail in the A/P section below. Please refer to Bundle It for list of inpatient medications. VITAL SIGNS: [...] Is Patient Clinically Ready to Transfer to [facility] or SDU?: Yes, transfer to SDU or [facility] today Discharge Planning: To be determined Prevention: [...] aspirin and ticagrelor Coronary artery disease involving united auburn coronary artery of united auburn heart Assessment: STEMI on 08/19/2022 s/p JUHI [...] Urology AND SICU ok for transfer to [facility] Medication and Non-Pharmacologic VTE Prophylaxis/Anticoagulants Anticoagulant AND Antiplatelet Medica (more content not included)...[facility]07-12-[facility]23 NoteHNO ID: [id number] Author: David Andrews MD Service: Urology Author Type: Physician Type: Progress Notes Filed: 08/29/2022 7:09 PM Note Text: [facility] UROLOGY PROGRESS NOTE Name: Olaf Briones Bed: H050 013/H050-13 Date: 08/29/2022 After Hours [facility] Service Pager: [phone] ASSESSMENT AND PLAN Olaf Briones is a 77 year old male with PMHx of HTN, HLD, DM, recent STEMI (s/p JUHI, on Brillinta and ASA), nephrolithiasis s/p ESWL remote, BPH s/p TURP 2001, transferred from [facility] for gross hematuria. Currently with 18Fr 3-way catheter on I. Now 1 Day Post-Op s/p cystoscopy, clot [...] EF 55% -Encourage IS -Continue telemetry on [facility] #GI - -Diet: Regular diet -Colace, Zofran [...] - routine #Disposition - pending course, to [facility] today if SICU agrees it is appropriate. Plan for discharge tomorrow. Active Problems Prior AR POA: Yes - placed on ASA 81, ticagrelor 90 mg BID Nephrolithiasis POA: Yes - Monitor HLD POA: Yes - Home atorva 80 mg DM POA: Yes - SSI HTN POA: Yes - amlodipine 5mg daily, carvedilol 6.25 BID, lisinopril 2.5 mg daily Prema Feliz MD PGY-2 Resident Physician Urology Pager: [phone] For weekend or after hours issues [place] [phone] CHIEF RESIDENT ADDENDUM POD#1 s/p cysto, TURP, [...] 08/29/2022 0700 Gross per 24 hour Intake 85759.5 ml Output 54307 ml Net 5853.5 ml Gen: No apparent [...] recs Gt Mcgowan MD Resident PGY-6 Urology [facility] Please page Dr. Feliz with [...] 08/29/2022 0700 Gross per 24 hour Intake 70180.5 ml Output 27713 ml Net 5853.5 ml Physical Exam GEN: [...] Feliz MD PGY-2 Resident Physician Urology Pager: [phone] For weekend or after hours issues [place] [phone] [facility] STAFF PHYSICIAN NOTE OF PERSONAL INVOLVEMENT IN CARE I have reviewed the progress note obtained and documented by the resident (more content not included)...[facility]07-11-2023 NoteHNO ID: [id number] Author: Molly Rosado APRN.MACHINE SANDER Service: ? Author Type: Nurse Residential Caregiver Type: Anesthesia Procedure Notes Filed: 08/28/2022 7:27 PM Note Text: ANESTHESIOLOGY PROCEDURE NOTE PIV General Information Procedure Start Time/Medication Administration: 08/28/2022 7:26 PM Staffing MACHINE SANDER: Molly Rosado APRN.MACHINE SANDER Preparation Sterility Preparation: hand hygiene performed prior to procedure, surgical cap used, mask used, skin prep agent completely dried prior to procedure Sterility Technique Not Completely Performed Due to Extreme Emergency: No Site Prep: alcohol Procedure Details Indication: need for IV access Needle Size/Type: 18 gauge angiocath Orientation: Left Location: Hand Imaging Guidance Used: No SIGNATURE: Molly Rosado APRN.MACHINE SANDER PATIENT NAME: Olaf Briones DATE: August 28, 2022 TIME: 7:26 PM CSN: [id number] Hospital07-11-2023 NoteHNO ID: [id number] Author: Molly Rosado APRN.MACHINE SANDER Service: ? Author Type: Nurse Residential Caregiver Type: Anesthesia Procedure Notes Filed: 08/28/2022 6:31 PM Note Text: ANESTHESIOLOGY PROCEDURE NOTE Airway General Information Procedure Start Time/Medication Administration: 08/28/2022 6:10 PM Patient location during procedure: OR Timeout Performed Pre-procedure: timeout performed Consent Obtained: Yes Patient identity confirmed: arm band and patient Staffing MACHINE SANDER: Molly Rosado APRN.MACHINE SANDER Indications and Patient Condition Indications for airway [...] no Airway not difficult SIGNATURE: Molly Rosado APRN.MACHINE SANDER PATIENT NAME: Olaf Briones DATE: August 28, 2022 TIME: 6:31 PM CSN: [id number] Hospital07-11-2023 NoteHNO ID: [id number] Author: Prema Feliz MD Service: Urology Author Type: Resident Type: Progress Notes Filed: 08/28/2022 9:47 PM Note Text: [facility] UROLOGY PROGRESS NOTE Name: Olaf Briones Bed: H050 013/H050-13 Date: 08/28/2022 After Hours [facility] Urology Service Pager: [phone] ASSESSMENT AND PLAN Olaf Briones is a 77 year old male with PMHx of HTN, HLD, DM, recent STEMI (s/p JUHI, on Brillinta and ASA), nephrolithiasis s/p ESWL , BPH s/p TURP 2001, transferred from [facility] for gross hematuria. Currently with 18Fr 3-way [...] pending course, in SICU Active Problems Prior AR POA: Yes - placed on ASA 81, ticagrelor 90 mg BID Nephrolithiasis POA: Yes - Monitor HLD POA: Yes - Home atorva 80 mg DM POA: Yes - SSI HTN POA: Yes - amlodipine 5mg daily, carvedilol 6.25 BID, lisinopril 2.5 mg daily Prema Feliz MD PGY-2 Resident Physician Urology Pager: [phone] For weekend or after hours issues [place] [phone] SUBJECTIVE See above Objective OBJECTIVE Vital Signs BP 112/52 Pulse 69 Temp 36.9 ?C (98.4 ?F) (Oral) Resp 18 Ht 173 cm (5' 8.11 ) Wt 75.5 kg (166 lb 7.2 oz) SpO2 97% BMI 25.23 kg/m? Input and Output Intake/Output Summary (Last 24 hours) at 08/28/20221955 Last data filed at 08/28/2022 1830 Gross per 24 hour Intake 59756 ml Output 41089 ml Net -1875 ml Physical Exam GEN: [...] Feliz MD PGY-2 Resident Physician Urology Pager: [phone] For weekend or after hours issues please page the [place]-call urology [place] [phone] Hospital07-11-2023 NoteHNO ID: [id number] Author: Prema Feliz MD Service: Urology Author Type: Resident Type: Progress Notes Filed: 08/28/2022 8:02 AM Note Text: [facility] UROLOGY PROGRESS NOTE Name: Olaf Briones Bed: H050 013/H050-13 Date: 08/28/2022 After Hours [facility] Service Pager: [phone] ASSESSMENT AND PLAN Olaf Briones is a 77 year old male with PMHx of HTN, HLD, DM, recent STEMI (s/p JUHI, on Brillinta and ASA), nephrolithiasis s/p ESWL , BPH s/p TURP 2001, transferred from [facility] for gross hematuria. Currently with 18Fr 3-way [...] for cysto, fulguration today Active Problems Prior AR POA: Yes - placed on ASA 81, ticagrelor 90 mg BID Nephrolithiasis POA: Yes - Monitor HLD POA: Yes - Home atorva 80 mg DM POA: Yes - SSI HTN POA: Yes - amlodipine 5mg daily, carvedilol 6.25 BID, lisinopril 2.5 mg daily Essential elements of above plan discussed with staff, Dr. Sharon Feliz MD PGY-2 Resident Physician Urology Pager: [phone] For weekend or after hours issues [place] [phone] SUBJECTIVE See above Objective OBJECTIVE Vital Signs BP 116/57 Pulse 69 Temp 36.5 ?C (97.7 ?F) (Oral) Resp 18 Ht 173 cm (5' 8.11 ) Wt 75.5 kg (166 lb 7.2 oz) SpO2 97% BMI 25.23 kg/m? Input and Output Intake/Output Summary (Last 24 hours) at 08/28/2022721 Last data filed at 08/28/2022 0716 Gross per 24 hour Intake 81601.5 ml Output 89033 ml Net -11700.5 ml Physical Exam GEN: Alert, NAD EYES: Anicteric CV: Warm and well perfused LUNGS: Unlabored breathing on RA ABD: Soft, appropriately tender : Hernandez catheter present Labs Recent Labs 08/27/22 0710 WBC 16.24* HB 13.4 HCT 38.5* PLT 214 NA 140 K 4.3 CHLOR 105 CO2 22 BUN 17 CREAT 0.79 GLUC 197* Imaging Reviewed Prema Feliz MD PGY-2 Resident Physician Urology Pager: [phone] For weekend or after hours issues please page the on-call urology pager at [phone] Hospital07-10-2023 NoteHNO ID: [id number] Author: Naomy Adkins MD Service: Urology Author [...] stent placed last saturday at [facility]. sees dr ivory Thank for consultation on [...] cc urinary retention. This is draining intermittently roasura blood in the catheter is clogging up [...] BPH with urinary obstruction / SNOMED CT 9753423899 / Confirmed Kidney stone / SNOMED CT 392314440 / Confirmed Weak urinary stream / SNOMED CT 427464534 / Confirmed Microscopic hematuria / SNOMED CT 341791667 / Confirmed Diabetes / SNOMED CT 786143771 / Confirmed Hypertension / SNOMED CT 7957697118 / Confirmed Prostatitis / SNOMED CT 71494628 / Confirmed BPH without urinary obstruction / SNOMED CT 7160640177 / Confirmed Gross hematuria / SNOMED CT 587942362 / Confirmed Asymptomatic microscopic hematuria / SNOMED CT 8394355899 / Confirmed, Active Problems (10) Asymptomatic microscopic hematuria BPH with urinary obstruction BPH without urinary obstruction Diabetes Gross hematuria Hypertension Kidney stone Microscopic hematuria Prostatitis Weak urinary stream Histories Past Medical History: No active or resolved past medical history items have been selected or recorded. Family History: Hypertension Father Procedure history: Cystoscopy (31218398) on 08/18/2013 at 68 Years. Comments: 10/02/2018 16:11 EDT - Katie Rogers MA 11/08/200904/2006 TURP - Transurethral resection of prostate ([id number]) in 2006 at 61 Years. Urodynamics (881872060) in 2006 at 61 Years. Transrectal biopsy of prostate using ultrasound (US) guidance (0657196903) in 2005 at 60 Years. ESWL - Extracorporeal shockwave lithotripsy for renal calculus (386648068) in 2000 at 55 Years. Comments: 10/02/2018 [...] Normal range of motion. Integumentary: Warm, Dry, Lynch. Neurologic: Alert, Oriented, Normal sensory. Psychiatric: Cooperative, [...] % HI Lymph Auto 6.1 % LOW Hardeman Auto 4.9 % Eos Auto 0.9 % Basophil Auto 0.5 % Neutro Absolute 13.5 E9/L HI Lymph Absolute 0.9 E9/L LOW Hardeman Absolute 0.8 E9/L Eos Absolute 0.1 E9/L [...] and Plan Diagnosis Abnormal CT scan, bladder (GHO35-FZ R93.41, Working, Medical). Anticoagulated by anticoagulation treatment (AZH02-SF Z79.01, Working, Medical). BPH with obstruction/lower urinary tract symptoms (LUD24-WI N40.1, Working, Medical). Gross hematuria (IBM96-GT R31.0, Discharge, Medical). S/P TURP (status post transurethral resection of prostate) (CPC24-OV Z90.79, Working, Medical). Urinary retention (MIJ22-KB R33.9, Discharge, Medical). Course: Worsening, Viewed CT [...] do not currently have available here at [facility] continuously. I discussed this extensively with the [...] AM Scheduled Provider:Shanna IVORY MD Location:[facility] Appointment Type:URO Office Visit [facility]07-05-2023 Hospital Discharge instructions Additional Instructions [...] doctor or pharmacist, without first calling the director retirement who implanted the stent. If you require [...] weight lifting, stair steppers, etc. until the director retirement approves these activities. Check with the director retirement on your first follow-up visit. CALL YOUR PHYSICIAN at [phone]: -If bleeding should occur from the catheter insertion site- apply pressure to the site then immediately call us. -Report any fever, redness, drainage, increased swelling, or firmness at the catheter insertion site. Some bruising or slight swelling may be present at the time of discharge. -Should arm or leg become cold, numb, white, or blue, contact the director retirement immediately. -IF you should experience episodes of [...] is recommended. Please call Central Scheduling at [phone] to schedule your appointment.] The attending director retirement or [facility] nurse clinician should provide you with specific instructions regarding activity, diet, medications, and further follow up for you. Follow the medication instructions provided on your discharge. If the dosages and instructions on this sheet differ from the dosage and instructions on the bottle, follow the instructions on the bottle. [facility] is not responsible for incorrect prescription information provided by the patient during their visit. Do not stop your medications without consulting your health care provider. Please take the list with you to your next doctor's appointment.[facility] Work Phone: 1(132) 113-817807-04-2023 Consult note Author Juanito Barney [facility] August 21, 2022 11:41am Note Date/Time August 21, 2022 11:41 am [facility] [address] [place] [address] Pulmonology Consult Note Signed Patient: Olaf Briones MR#: [id number] : 1945 Acct:[id number] Age/Sex: 77 / M Adm Date: 3 Loc: Room: [address] [place] [address] Type: REG SDC Attending Dr: Steven Zamora [...] ST elevation in the inferior lateral leads. Civil Transportation Engineer was activated, patient received PCI to RCA. [...] 08/21/22 10:00 08/21/22 10:00 08/21/22 10:00 Narrative: MOBILE HOME MECHANIC: Alert and oriented x3. No focal deficits. [...] found to have inferior lateral ST elevation AR along with complete heart block. Civil Transportation Engineer was activated, patient received PCI to RCA. Patient is currently doing much better with no signs or symptoms of heart block,he is on room air. Optimizing cardiac meds as per cardiology. Glycemic control DVT prophylaxis Discussed with nursing staff Documented By: Juanito Barney MD 08/21/22 113 6 Signed By: <Electronically signed by Juanito Barney MD> 08/21/22 1141 [facility] Work Phone: 1(972) 511-750607-04-2023 Progress note Author Elpidio Andres [facility] August 21, 2022 8:11am Note Date/Time August 21, 2022 8:11a m [facility] [address] [place] [address] Cardiology Progress Note Signed Patient: Olaf Briones MR#: [id number] : 1945 Acct:[id number] Age/Sex: 77 / M Adm Date: 3 Loc: Room: [address] [place] [address] Type: REG SDC Attending Dr: Steven Zamora [...] % (Auto) 64.1 Lymph % (Auto) 26.2 Hardeman % (Auto) 7.9 Eos % (Auto) 1.3 Baso % (Auto) 0.5 Nucleat RBC Rel Count 0.1 Neut # (Auto) 6.9 Lymph # (Auto) 2.8 Hardeman # (Auto) 0.9 H Eos # (Auto) [...] MPV Neut % (Auto) Lymph % (Auto) Hardeman % (Auto) Eos % (Auto) Baso % (Auto) Nucleat RBC Rel Count Neut # (Auto) Lymph # (Auto) Hardeman # (Auto) Eos # (Auto) Baso # [...] MPV Neut % (Auto) Lymph % (Auto) Hardeman % (Auto) Eos % (Auto) Baso % (Auto) Nucleat RBC Rel Count Neut # (Auto) Lymph # (Auto) Hardeman # (Auto) Eos # (Auto) Baso # (Auto) Monocyte Dist Width PT INR APTT PHA Creatinine Clear Sodium Potassium Chloride Carbon Dioxide Anion Gap BUN Creatinine Est GFR (CKD-EPI) Glucose Calcium Total Creatine Kinase Troponin I High Sens 9010.4 H* 81934.3 H* 60983.9 H* B-Natriuretic Peptide Triglycerides Cholesterol LDL Cholesterol, Calc VLDL Cholesterol HDL Cholesterol Cholesterol/HDL Ratio 08/21/22 08/21/22 08/21/22 05:30 05:30 05:30 Corrected WBC 13.6 H Uncorrected WBC Count 13.6 H RBC 4.66 Hgb 14.6 Hct 42.7 MCV 91.6 MCH 31.4 MCHC 34.3 RDW 13.5 Plt Count 171 MPV 9.5 Neut % (Auto) 85.4 Lymph % (Auto) 8.2 Hardeman % (Auto) 6.1 Eos % (Auto) 0.1 Baso % (Auto) 0.2 Nucleat RBC Rel Count 0.0 Neut # (Auto) 11.7 H Lymph # (Auto) 1.1 Hardeman # (Auto) 0.8 Eos # (Auto) 0.0 Baso # (Auto) 0.0 Monocyte Dist Width PT INR APTT PHA Creatinine Clear 74.81 Sodium 138 Potassium 3.8 Chloride 103 Carbon Dioxide 27.1 Anion Gap 11.7 BUN 12 Creatinine 0.71 Est GFR (CKD-EPI) > 60.0 Glucose 162 H Calcium 9.4 Total Creatine Kinase Troponin I High Sens 71430.9 H* B-Natriuretic Peptide Triglycerides 124 Cholesterol 132 [...] evolution today we will plan for disposition [place] tomorrow. (2) Heart block: Assessment/Problem Details: Resolved with sikh of flow to the dominant right coronary [...] by Elpidio Andres MD> 08/21/22 0811 [facility] Work Phone: 1(712) 207-661607-03-2023 History and physical note Author Steven Zamora [facility] August 20, 2022 6:29pm Note Date/Time August 20, 2022 6:24p m [facility] [address] [place] [address] Cardiology H&P Signed with Addenda Patient: Olaf Briones MR#: [id number] : 1945 Acct:[id number] Age/Sex: 77 / M Adm Date: 3 Loc: Room: [address] [place] [address] Type: REG SDC Attending Dr: Steven Zamora DO Copies to: NON STAFF Steven Zamora DO~ ADDENDUM1 Impression: Inferolateral STEMI with change in complete heart block Plan: Proceed with emergent cath and PCI. A total of 60 minutes nonprocedural critical care time were devoted to the ER staff, review of ECG, Civil Transportation Engineer staff, nursing staff, both patient and family [...] Discussed case with ER attending, reviewed ECGs; Civil Transportation Engineer team activated, half amp of atropine ordered in addition to routine upstream antiplatelet and Antithrombin therapies. Patient arrived at the Civil Transportation Engineer at 1659 underwent first balloon activation at [...] additional complaints, except as documented [facility] Medical History (Updated 08/20/22 @ 16:41 by [...] x10E3/uL Lymph # (Auto) 2.8 (1.00-4.8) x10E3/uL Hardeman # (Auto) 0.9 H (0.0-0.8) x10E3/uL Eos # (Auto) 0.1 (0.0-0.45) x10E3/uL Baso # (Auto) 0.1 (0.0-0.2) x10E3/uL Comprehensive Metabolic Panel 08/20/22 Range/Units 16:27 Sodium 140 (136-145) mmol/L Potassium 3.4 L (3.5-5.1) mmol/L Chloride 105 (98-107) mmol/L Carbon Dioxide 24.3 (21.0-31.0) mmol/L BUN 15 (7-25) mg/dL Creatinine 0.92 (0.70-1.30) mg/dL Glucose 172 H (70-100) mg/dL Calcium 9.4 (8.6-10.3) mg/dL Intake and Output 08/20/22 08/20/2223 07:59 15:59 23:59 Other: Weight 81.5 kg Patient Weight 08/20/22 23:59 Weight 81.5 kg Lab 08/20/22 16:27 PT 11.4 INR 1.0 APTT 25.1 Documented By: Steven Zamora DO 08/20/221819 Signed By: <Electronically signed by Steven Zamora DO> 08/20/221826 [facility] Work Phone: 1(189) 930-301407-03-2023 [facility] History general Narrative - Reported * Type Description Date Surgical History TURP 2022 Hospitalization History heart attack august 20 2022 [facility] Other 09-09-2022 Hospital Discharge instructions Patient Education [...] urethra. Follow these instructions at home: Take nsab-fla-acdxusp and prescription medicines only as told by [...] 02/04/2006 Document Revised: 12/30/2018 Document Reviewed: 03/11/2017 [employer] Patient Education 2020 [employer]. Follow Up Care 10/21/2020 08:48:14 With:CACHORRO HAHN, Shanna Sánchez, URL Address: [address] [place] [address]- When: Unknown [facility] Franca consbjs note Author Juanito Barney [facility] August 21, 2022 11:41am Note Date/Time August 21, 2022 11:41 am [facility] [address] [place] [address] Pulmonology Consult Note Signed Patient: Olaf Briones MR#: [id number] : 1945 Acct:[id number] Age/Sex: 77 / M Adm Date: 3 Loc: Room: [address] [place] [address] Type: REG SDC Attending Dr: Steven Zamora [...] ST elevation in the inferior lateral leads. Civil Transportation Engineer was activated, patient received PCI to RCA. [...] 08/21/22 10:00 08/21/22 10:00 08/21/22 10:00 Narrative: [employer]: Alert and oriented x3. No focal deficits. [...] found to have inferior lateral ST elevation AR along with complete heart block. Civil Transportation Engineer was activated, patient received PCI to RCA. Patient is currently doing much better with no signs or symptoms of heart block,he is on room air. Optimizing cardiac meds as per cardiology. Glycemic control DVT prophylaxis Discussed with nursing staff Documented By: Juanito Barney MD 08/21/22 113 6 Signed By: <Electronically signed by Juanito Barney MD> 08/21/22 1141 [facility] Work Phone: Discharge summary Author Steven Zamora [facility] August 22, 2022 3:21pm Note Date/Time August 22, 2022 3:17p m [facility] [address] [place] [address] Discharge Summary Signed Patient: Olaf Briones MR#: [id number] : 1945 Acct:[id number] Age/Sex: 77 / M Adm Date: 3 Loc: Room: [address] [place] [address]: Steven Zamora DO Copies to: [...] % (Auto) 72.5, Lymph % (Auto) 15.9, Hardeman % (Auto) 9.7, Eos % (Auto) 1.6, Baso % (Auto) 0.3, Nucleat RBC Rel Count 0.1, Neut # (Auto) 6.4, Lymph # (Auto) 1.4, Hardeman # (Auto) 0.9 H, Eos # (Auto) [...] doctor or pharmacist, without first calling the director retirement who implanted the stent. If you require [...] weight lifting, stair steppers, etc. until the director retirement approves these activities. Check with the director retirement on your first follow-up visit. CALL YOUR PHYSICIAN at [phone]: -If bleeding should occur from the catheter insertion site- apply pressure to the site then immediately call us. -Report any fever, redness, drainage, increased swelling, or firmness at the catheter insertion site. Some bruising or slight swelling may be present at the time of discharge. -Should arm or leg become cold, numb, white, or blue, contact the director retirement immediately. -IF you should experience episodes of [...] is recommended. Please call Central Scheduling at [phone] to schedule your appointment.] The attending director retirement or [facility] nurse clinician should provide you with specific instructions regarding activity, diet, medications, and further follow up for you. Follow the medication instructions provided on your discharge. If the dosages and instructions on this sheet differ from the dosage and instructions on the bottle, follow the instructions on the bottle. [facility] is not responsible for incorrect prescription [...] signed by Steven Zamora DO> 08/22/22 1521 [facility] Work Phone: Evaluation + Plan note Future Appointments Appointment Date:11/02/2022 08:30:00 AM Scheduled Provider:Shanna IVORY MD Location:[facility] Appointment Type:URO Office Visit [facility] evaluation + Plan note Future Appointments Appointment Date:03/27/2024 08:45:00 AM Scheduled Provider:Shanna IVORY MD Location:[facility] Appointment Type:URO Office Visit [facility] evaluation + Plan note Future Appointments Appointment Date:04/02/2025 08:00:00 AM Scheduled Provider:Shanna IVORY MD Location:[facility] Appointment Type:URO Office Visit [facility] evaluation note* Diagnosis Onset Date Resolution Status Heart block acute ST elevation (STEMI) myocardial infarction acute Syncope acute [facility] Work Phone: evaluation note* Diagnosis Arteriosclerotic cardiovascular disease- Primary Unspecified cardiovascular disease Abnormal EKG Nonspecific abnormal electrocardiogram (ECG) (EKG) Mixed hyperlipidemia Primary hypertension Unspecified essential hypertension Post PTCA Postsurgical percutaneous transluminal coronary angioplasty status Essential hypertension Unspecified essential hypertension BMI 26.0-26.9,adult Easy bruisability Other symptoms involving skin and integumentary tissues documented in this encounter [facility] Work Phone: Evaluation note* Diagnosis Essential hypertension- Primary Unspecified essential hypertension Arteriosclerotic cardiovascular disease Unspecified cardiovascular disease Abnormal EKG Nonspecific abnormal electrocardiogram (ECG) (EKG) Mixed hyperlipidemia Post PTCA Postsurgical percutaneous transluminal coronary angioplasty status BMI 26.0-26.9,adult Never smoked tobacco documented in this encounter [facility] Work Phone: Evaluation note* Diagnosis Arteriosclerotic cardiovascular disease- Primary Unspecified cardiovascular disease Post PTCA Postsurgical percutaneous transluminal coronary angioplasty status Mixed hyperlipidemia Abnormal EKG Nonspecific abnormal electrocardiogram (ECG) (EKG) Essential hypertension Unspecified essential hypertension Easy bruisability Other symptoms involving skin and integumentary tissues Never smoked tobacco BMI 28.0-28.9,adult documented in this encounter [facility] Work Phone: Evaluation note* Diagnosis Coronary artery disease involving [place] coronary artery of [place] heart without angina pectoris (CMS/HCC)- Primary Gout, unspecified cause, unspecified chronicity, unspecified site Kidney stones Calculus of kidney Primary hypertension (CMS/HCC) Unspecified essential hypertension Routine general medical examination at health care facility- Primary Routine general medical examination at a health care facility Abnormal glucose tolerance test Impaired glucose tolerance test Benign essential hypertension (CMS/HCC) Essential hypertension, benign Nocturia Medicare annual wellness visit, initial Coronary artery disease involving [place] coronary artery of [place] heart without angina pectoris (CMS/HCC) Primary hypertension (CMS/HCC) Unspecified essential hypertension Type 2 diabetes mellitus without complication, without long-term current use of insulin ([facility]/HCC) Need for hepatitis C screening test Special screening examination for other specified viral diseases Dyspnea on exertion- Primary Other dyspnea and respiratory abnormality Coronary artery disease of [place] artery of [place] heart with stable angina pectoris (CMS/HCC) Chest pain due to CAD (CMS/HCC) Atherosclerosis of aorta (I70.0) Atherosclerosis of aorta Routine general medical examination at health care facility- Primary Routine general medical examination at a health care facility Benign essential hypertension ([facility]/HCC) Essential hypertension, benign Nocturia Medicare annual wellness visit, initial Type 2 diabetes mellitus without complication, without long-term current use of insulin ([facility]/HCC) Mixed hyperlipidemia ([facility]/HCC) Mixed hyperlipidemia Sciatica, unspecified laterality Coronary artery disease of [place] artery of [place] heart with stable angina pectoris ([facility]/HCC) documented in this encounter [facility] HealthcareEvaluation noteNo assessment information availableSelect [facility] Work Phone: History and physical note Author Steven Zamora [facility] August 20, 2022 6:29pm Note Date/Time August 20, 2022 6:24p m [facility] [address] [place] [address] Cardiology H&P Signed with Addenda Patient: Olaf Briones MR#: [id number] : 1945 Acct:[id number] Age/Sex: 77 / M Adm Date: 3 Loc: Room: [address] [place] [address] Type: REG SDC Attending Dr: Steven Zamora DO Copies to: NON STAFF Steven Zamora DO~ ADDENDUM1 Impression: Inferolateral STEMI with change in complete heart block Plan: Proceed with emergent cath and PCI. A total of 60 minutes nonprocedural critical care time were devoted to the ER staff, review of ECG, Civil Transportation Engineer staff, nursing staff, both patient and family [...] Discussed case with ER attending, reviewed ECGs; Civil Transportation Engineer team activated, half amp of atropine ordered in addition to routine upstream antiplatelet and Antithrombin therapies. Patient arrived at the Civil Transportation Engineer at 1659 underwent first balloon activation at [...] additional complaints, except as documented [facility] Medical History (Updated 08/20/22 @ 16:41 by [...] x10E3/uL Lymph # (Auto) 2.8 (1.00-4.8) x10E3/uL Hardeman # (Auto) 0.9 H (0.0-0.8) x10E3/uL Eos [...] <Electronically signed by Steven Zamora DO> 08/20/221826 [facility] Work Phone: History of Present [...] notify me with change in cardiac status [facility] [employer] DO Work Phone: History of Present illness [...] notify me with change in cardiac status [facility] [employer] 250 DO Work Phone: History of Present [...] he developed hematuria ultimately went to the [facility] where he underwent TURP and removal [...] me change in cardiac status or symptoms [facility] 250 DO Work Phone: Hospital course Narrative No data available for this section [facility] Hospital Discharge instructions No data available for this section [facility] No data available for this section [facility] progress note Author Elpidio Andres [facility] August 21, 2022 8:11am Note Date/Time August 21, 2022 8:11a m [facility] [address] [place] [address] Cardiology Progress Note Signed Patient: Olaf Briones MR#: [id number] : 1945 Acct:[id number] Age/Sex: 77 / M Adm Date: 3 Loc: Room: [address] [place] [address] Type: REG SDC Attending Dr: Steven Zamora [...] % (Auto) 64.1 Lymph % (Auto) 26.2 Hardeman % (Auto) 7.9 Eos % (Auto) 1.3 Baso % (Auto) 0.5 Nucleat RBC Rel Count 0.1 Neut # (Auto) 6.9 Lymph # (Auto) 2.8 Hardeman # (Auto) 0.9 H Eos # (Auto) [...] MPV Neut % (Auto) Lymph % (Auto) Hardeman % (Auto) Eos % (Auto) Baso % (Auto) Nucleat RBC Rel Count Neut # (Auto) Lymph # (Auto) Hardeman # (Auto) Eos # (Auto) Baso # [...] MPV Neut % (Auto) Lymph % (Auto) Hardeman % (Auto) Eos % (Auto) Baso % (Auto) Nucleat RBC Rel Count Neut # (Auto) Lymph # (Auto) Hardeman # (Auto) Eos # (Auto) Baso # (Auto) Monocyte Dist Width PT INR APTT PHA Creatinine Clear Sodium Potassium Chloride Carbon Dioxide Anion Gap BUN Creatinine Est GFR (CKD-EPI) Glucose Calcium Total Creatine Kinase Troponin I High Sens 9010.4 H* 44204.3 H* 98044.9 H* B-Natriuretic Peptide Triglycerides Cholesterol LDL Cholesterol, Calc VLDL Cholesterol HDL Cholesterol Cholesterol/HDL Ratio 08/21/22 08/21/22 08/21/22 05:30 05:30 05:30 Corrected WBC 13.6 H Uncorrected WBC Count 13.6 H RBC 4.66 Hgb 14.6 Hct 42.7 MCV 91.6 MCH 31.4 MCHC 34.3 RDW 13.5 Plt Count 171 MPV 9.5 Neut % (Auto) 85.4 Lymph % (Auto) 8.2 Hardeman % (Auto) 6.1 Eos % (Auto) 0.1 Baso % (Auto) 0.2 Nucleat RBC Rel Count 0.0 Neut # (Auto) 11.7 H Lymph # (Auto) 1.1 Hardeman # (Auto) 0.8 Eos # (Auto) 0.0 Baso # (Auto) 0.0 Monocyte Dist Width PT INR APTT PHA Creatinine Clear 74.81 Sodium 138 Potassium 3.8 Chloride 103 Carbon Dioxide 27.1 Anion Gap 11.7 BUN 12 Creatinine 0.71 Est GFR (CKD-EPI) > 60.0 Glucose 162 H Calcium 9.4 Total Creatine Kinase Troponin I High Sens 92433.9 H* B-Natriuretic Peptide Triglycerides 124 Cholesterol 132 [...] evolution today [facility] (2) Heart block: Assessment/Problem Details: Resolved with sikh of flow to the dominant right coronary [...] signed by Elpidio Andres MD> 08/21/22 0811 [facility] Work Phone: Reason for referral (narrative)* Consultation (Routine) - Authorized Specialty Diagnoses / Procedures Referred By Contac t Referred To Contact Cardiology Diagnoses Arteriosclerotic cardiovascular disease Abnormal EKG Mixed hyperlipidemia Procedures Follow Up In Cardiology Ashutosh Ling MD [address] [place] [address] Ashutosh Ling MD [address] [place] [address] Referral ID Status Reason Start Date Expiration Date V isits Requested Visits Authorized [id number] Authorized 01/09/2023 01/09/2024 1 1 [facility] Work Phone: Reason for referral (narrative)* Consultation (Routine) - Authorized Specialty Diagnoses / Procedures Referred By Contdotty t Referred To Contact Cardiology Diagnoses Arteriosclerotic cardiovascular disease Procedures Follow Up In Cardiology Ashutosh Ling MD [address] [place] [address] Ashutosh Ling MD [address] [place] [id number] Referral ID Status Reason Start Date Expiration Date V isits Requested Visits Authorized [id number] Authorized 06/26/2023 06/25/2024 1 1 [facility] Work Phone: Family History No Family History [...] history of vertigo: M other(V19.3, Z84.89) Status:Active Relationship Condition Age at Onset Recorded Date/T sim mother Diabetes mellitus Unknown Heart disease Unknown father Hypertension Unknown brother Heart disease Unknown Myocardial infarction Unknown History of percutane ous transluminal coronary angioplasty Unknown Paroxysmal atrial fibrillation Unknown Chief Complaint OLAF BRIONES is being seen for Testing Results. Summary Purpose Advance Directives No Advanced Directives Records Found Advance Directive Response Recorded Date/ Time Advance Directives No August 20 4:37pm Chief Complaint and Reason for Visit Chief Complaint chest pain Reason for Visit Heart block ST elevation (STEMI) myocardial infarction Syncope Chief Complaint Admit Date Clogged ears May 05, 2024 12: 34pm Chief Complaint Admit Date Clogged ears May 05, 2024 12: 34pm NEW PATIENT June 25, 2024 1:39pm Reason for Visit Admit Date Bilateral impacted cerumen May 05 12:34pm Reason for Visit Admit Date Bilateral impacted cerumen May 05 12:34pm Coronary artery disease invo lving united [place] coronary artery of united [place] heart wi June 25, 2024 1:39pm Essential (primary) hypertension June 1:39pm Mixed hyperlipidemia June 25, 2024 1:39p m S/P coronary artery stent placement June 25, 2024 1:39pm Additional Source Comments Reason for Visit (unrecogniz ed section and content) Reason Comments Follow Up Phone Call All Clear Reason Comments Patient Update Reason Comments Follow-up 4 month Reason Comments Follow-up 6m Specialty Diagnoses / Procedures Referred By Mellissa shin Referred To Contact Cardiology Diagnoses Arteriosclerotic cardiovascular disease Abnormal EKG Mixed hyperlipidemia Procedures Follow Up In Cardiology Ashutosh Ling MD [address] [facility] 2, [address] [address] Ashutosh Ling MD [address] [place], [place] [address], [address] [place] [address] Referral ID Status Reason Start Date Expiration Date V isits Requested Visits Authorized [id number] Authorized 01/09/2023 01/09/2024 1 1 Specialty Diagnoses / Procedures Referred By Contdotty t Referred To Contact Cardiology Diagnoses Arteriosclerotic cardiovascular disease Procedures Follow Up In Cardiology Ashutosh Ling MD [address] [facility] 2, [facility] [address] [place] [address] Phone: tel: fax: Ashutosh Ling MD [address] [facility] 2, [facility] [address] [place] [address] Phone: tel: fax: Referral ID Status Reason Start Date Expiration Date V isits Requested Visits Authorized [id number] Authorized 06/26/2023 06/25/2024 1 1 Reason Comments Medicare Annual Wellness Visit Subsequen t Care Team (unrecognized sect ion and content) Team Status: Active Member Role Status Dates NON STAFF Primary Care Provider Active Team Status: Inactive Member Role Status Dates NON STAFF Primary Care Provider Active Shannon Cochran , Emergency Provider Active Steven Zamora , Admit Provider, Attending Provide r Active Juanito Barney MD Other Provider Active Team Status: Active Member Role Status Dates NON STAFF Primary Care Provider Active Shannon Cochran , Emergency Provider Active Steven Zamora , DO Attending Provider Active Chainman Relationship Specialty Start Date End Date Jame Barraza MD [address] [place], [place] [id number] PCP - General Family Medicine 08/31/22 Chainman Relationship Specialty Start Date End Date Jame Barraza MD [address] [place], [place] [id number] PCP - General Family Medicine 08/31/22 Chainman Relationship Specialty Start Date End Date Ashutosh Ling MD [address] [facility] 2, [facility] [address] [place] [address] PCP - [employer] PCP 08/18/22 Dav Peguero MD [address] [facility] [address] [place] [address] PCP - General Family Medicine 01/09/23 Chainman Relationship Specialty Start Date End Date Dav Peguero MD PCP - General Family Medicine 01/09/23 Chainman Relationship Specialty Start Date End Date Dav ePguero MD [address] [place] [address] PCP - General Family Medicine 10/09/22 Dav Peguero MD [address] [place] [address] [facility] 05/20/23 06/17/65 Chainman Relationship Specialty Start Date End Date Dav Peguero MD PCP - General Family Medicine 01/09/23 Chainman Relationship Specialty Start Date End Date Dav Peguero MD [address] [place] [address] PCP - General Family Medicine 10/09/22 Dav Peguero MD [address] [place] [address] [facility] 05/20/23 06/17/65 Chainman Relationship Specialty Start Date End Date Dav Peguero MD [address] [place] [address] PCP - General Family Medicine 10/09/22 Dav Peguero MD [address] [facility] [address] [place] [address] [facility] 05/20/23 06/17/65 Team Status: Active Member Role Status Dates Dav Peguero MD Primary Care Provider Active Team Status: Inactive Member Role Status Dates Dav Peguero MD Primary Care Provider Active S tart: May 05, 2024 End: May 05, 2024 Kenia Amos APRN Attending Provider Active Start: May 05, 2024 End: May 05, 2024 Team Status: Inactive Member Role Status Dates Benigno Harper MD Attending Provider Activ e Start: June 25, 2024 End: June 25, 2024 Dav Peguero MD Primary Care Provide r, Referring Provider Active Start: June 25, 2024 End: June 25, 2024 Team Status: Active Member Role Status Dates Dav Pegureo MD Primary Care Provider Active S tart: June 25, 2024 Benigno Harper MD Attending Provider Activ e Start: June 25, 2024 Team Status: Inactive Member Role Status Dates Dav Peguero MD Primary Care Provider Active S tart: June 25, 2024 End: June 25, 2024 Benigno Harper MD Attending Provider Activ e Start: June 25, 2024 End: June 25, 2024 Chainman Relationship Specialty Start Date End Date Dav Peguero MD 112 [facility] [address] [place] [address] PCP - General Family Medicine 10/09/22 Dav Peguero MD [address] [address] [facility] 05/20/23 06/17/65 (unrecognized sect ion and content) No Status Records FoundNo Status Records FoundNo Status Records FoundNo Status Records FoundNo Status Records FoundNo Status Records FoundNo Status Records FoundNo Status Records FoundNo Status Records FoundNo Status Records Found INFORMATION SOURCE (unrecogn ized section and content) DATE CREATED AUTHOR 11/15/2021 [facility] DATE CREATED AUTHOR AUTHOR'S ORGANIZ ATION 09/06/2022 [email or web address] DATE CREATED AUTHOR AUTHOR'S ORGANIZ ATION 09/07/2022 [facility] DATE CREATED AUTHOR AUTHOR'S ORGANIZ ATION 10/10/2022 [facility] DATE CREATED AUTHOR AUTHOR'S ORGANIZ ATION 02/28/2024 [facility] DATE CREATED AUTHOR AUTHOR'S ORGANIZ ATION 03/29/2024 [facility] DATE CREATED AUTHOR AUTHOR'S ORGANIZ ATION 04/04/2024 [facility] EPIC DATE CREATED AUTHOR AUTHOR'S ORGANIZ ATION 04/06/2024 [facility] DATE CREATED AUTHOR AUTHOR'S ORGANIZ ATION 06/27/2024 [facility] DATE CREATED AUTHOR AUTHOR'S ORGANIZ ATION 09/04/2024 [facility] Goals (unrecognized section and content) Goals may be documented in a n alternate section Source Comments (unrecognize d section and content) In the event this informatio n is protected by the Federal Confidentiality of Alcohol and Drug Abuse Patient Records regulations: The Federal rules restrict any use of the information to criminally investigate or prosecute any alcohol or drug abuse patient.[facility] the event this information is protected by the Federal Confidentiality of Alcohol and Drug Abuse Patient Records regulations: The Federal rules restrict any use of the information to criminally investigate or prosecute any alcohol or drug abuse patient.[facility] FOR RECORDS PERTAINING TO PATIENTS WHO [...] BE BASED ON THE PRIMARY CLINICAL RECORDS. [employer] provides no warranty or guarantee of the accuracy or completeness of information in this document.
--- NOTE | 2024-11-26 11:08 | PM.CN ---
Consult Note: HPI Data of Consult Patient: known to practice within the last 3 years Requesting Physician: Ria Kirby NP Primary Care Provider: DAV PEGUERO Consult Narrative Reason for consult: low back and BLE pain Narrative: Thomas Thorne a pleasant 79 year old male presents for evaluation of moderate to severe low back and BLE pain, hx of severe stenosis and degenerative changes. Previously underwent bilateral L4/5 TFESI with 80% improvement ongoing. declined to schedule NS consult as pain is well controlled. cc:: CC: Ria Kirby NP Review of Systems ROS Status of ROS 10 or more systems reviewed and unremarkable except as noted in history and below Genitourinary Denies: painful urination, urinary frequency, urinary urgency or difficulty urinating Musculoskeletal Denies: back pain or joint pain PFSH PFSH Medical History Enlarged prostate ?N40.0 - Benign prostatic hyperplasia without lower urinary tract symptoms (ICD-10) Low back pain ?M54.50 - Low back pain, unspecified (ICD-10) Hypertension ?I10 - Essential (primary) hypertension (ICD-10) Kidney stone Surgical History History of transurethral resection of prostate ?Z98.890 - Other specified postprocedural states (ICD-10) ?Z90.79 - Acquired absence of other genital organ(s) (ICD-10) Meds Home Medications and Allergies Home Medications ?Medication ?Instructions ?Recorded ?Confirmed ?Type allopurinol 300 mg tablet 300 mg PO DAILY 01/23/23 08/17/24 History amlodipine 5 mg tablet 5 mg PO DAILY 01/23/23 08/17/24 History aspirin 81 mg tablet,delayed 81 mg PO DAILY 01/23/23 08/17/24 History release atorvastatin 80 mg tablet 40 mg PO DAILY 01/23/23 08/17/24 History carvedilol 6.25 mg tablet 6.25 mg PO Q12H 01/23/23 08/17/24 History lisinopril 2.5 mg tablet 2.5 mg PO DAILY 01/23/23 08/17/24 History nitroglycerin 0.4 mg sublingual 0.4 mg sublingual Q5M PRN chest 01/23/23 08/17/24 History tablet pain Allergies Allergy/AdvReac Type Severity Reaction Status Date / Time amoxicillin Allergy Unknown Rash Verified 08/17/24 09:51 albuterol Allergy Headache Verified 08/17/24 09:51 hydrochlorothiazide Allergy Rash Verified 08/17/24 09:51 Exam Constitutional Documenting provider has reviewed patient's vital signs: yes Common normals: no apparent distress, oriented x3, healthy appearing, alert and well nourished General appearance: cooperative HENMT Common normals: normocephalic, hearing grossly normal bilaterally and moist oral mucous membranes Head and scalp: normocephalic Eye Common normals: PERRL Pupil: PERRL Neck & C-Spine Common normals: full ROM General: normal visual inspection Chest Common normals: inspection of chest normal Respiratory Common normals: normal respiratory effort, no retractions and no use of accessory muscles Back & Pelvis Lumbar spine/lower back: lumbar ROM normal and straight leg raise negative bilaterally; ROM not limited and no pain with ROM Sacroiliac joints: SI joints normal Other: strength 5/5 in BLE sensation intact BLE Extremity Common normals: normal to inspection and full ROM Other: negative internal/external rotation of bilateral hips Neuro Common normals: oriented x3 Sensorium/orientation: alert Psych Common normals: mental status grossly normal, thought process normal, cooperative, affect normal, speech normal and activity/motor behavior normal Speech: normal speech Thought process: normal thought process Results Imaging Lumbar MRI: Attestation: I have reviewed the pertinent imaging results. Radiologist's impression: There is continued slight anterolisthesis of L4 and L5. Heterogeneous bone marrow is again noted. There are no acute compression fractures or marrow edema. The conus medullaris is within normal limits for caliber, position and signal intensity. Bilateral renal cysts are seen. There are no other paraspinal soft tissue abnormalities. At T12-L1, there is no disc disease or stenosis. At L1-2, there is slight loss of disc height. Mild annular disc bulging is again visualized greater extending laterally. Mild thecal sac effacement is present. Moderate bilateral foraminal encroachment is noted. At L2-3, the disc is within normal limits for height. Annular disc bulging is again visualized. There is minor facet and ligamentous hypertrophy. There is mild to moderate thecal sac effacement and bilateral foraminal encroachment. At L3-4, the disc is within normal limits for height. There is annular disc bulging with extension laterally on both sides. There is facet and ligamentous hypertrophy with severe central stenosis similar to the prior. There is moderate foraminal encroachment on the right and mild to moderate on the left. At L4-5, there is annular disc bulging. There is facet and ligamentous hypertrophy with severe central stenosis and near complete effacement of the thecal sac. There is at least moderate narrowing of the neural foramen on both sides, greater on the left. At the lumbosacral junction no significant disc bulge or herniation is present. There is mild facet disease. No stenosis is identified. Additional Findings Additional findings: If on a controlled substance or opioids, I have checked an [place] report on this patient and there are no aberrancies noted in the prescribing history.??If on a controlled substance or opioid a drug screen was completed and reviewed within the last year, and if there has not been a drug screen completed we ordered one today to monitor higher risk, state monitored pain medication use. As part of providing excellent, safe, comprehensive care, the following was completed at our patient's visit: 1. A medication reconciliation and review to ensure accurate knowledge of current/active medications, including asking our patients to inform us about any [id number] medications or herbal remedies/nutritional supplements/alternative remedies. 2. A review to specifically ensure our patients have had annual screening for screening for depression, screening for tobacco use, and screening for unhealthy alcohol use. For concerning screenings had a discussion with the patient, provided patient education, and recommended follow-up with primary care provider when appropriate. If patient noted with a risk of falling, they received education on strength, gait, and balance training to prevent future risk of falling. Portions of this note may have been carried over from the previous visit and updated as appropriate. Please note this office utilizes paper charting in addition to the electronic medical record. A list of current medications, vitals, and PMH is available there as the clinical staff outside of myself do not have access to [employer] charting during the clinic day operations. As part of providing quality comprehensive care the current medications, vitals, and PMH were reviewed in the paper chart. Assessment and Plan Assessment and Plan (1) Lumbar stenosis with neurogenic claudication: Assessment and Plan: The patient has had over 3 months of moderate to severe low back and BLE pain with functional impairment and inadequate response to conservative care including NSAIDS (unless there are contraindication such as concurrent blood thinners), multiple oral or topical pain medications, and home exercise program/physical therapy.? Patient has completed >6 weeks of guided home exercise program and/or formal physical therapy program without relief of their symptoms.? The Oswestry Disability Index was completed, and the patient scored a 27%.? ? Plan repeat bilateral L4-5 TFESI under fluoroscopy as needed, previous KATIE providing significant relief continue HEP as tolerated continue prn tylenol f/u PRN
== END 2024-11-26 10:35 | disposition home or self-care (01) ==
LOC: PM 10:35
PROVIDERS: PCP Family Medicine; Visit Provider Nurse Practitioner
DX: M48.062 Spinal stenosis, lumbar region with neurogenic claudication (principal)
CPT/HCPCS: G0463

== ENCOUNTER 2024-12-07 11:13 | Day surgery (SDC) | payer MEDICARE, SELFPAY ==
--- OUTSIDE RECORDS SUMMARY | 2024-12-07 11:19 | XMS_ITS | CCD ---
Author Organization [facility] CliniSyil Care Team Providers Care Sports Physician Name Role Phone Jame Barraza Unavailable Unavailable Unavailable JAME BARRAZA Primary Care Physician [phone] DR SHANNA IVORY Attending Unavailable CHRISTI, DR JAME Bowers Primary Care Unavailable CACHORRO, DR OTERO Admitting Unavailable DR SHANNA IVORY Consulting Unavailable [place], DR AMNA Saucedo Consulting Unavailable DOMINGUEZ GUTIERREZ Admitting Unavailable DOMINGUEZ GUTIERREZ Attending Unavailable DR JAME BARRAZA Primary Care Unavailable NON STAFF Primary Care Provider Dom Cochran DO [facility] Provider [phone] DO Steven Zamora Attending Provider [phone] NON STAFF Primary Care Provider Unavailsigrid Cochran DO [facility] Provider [phone] DO Steven Zamora Admit Provider DO Steven Zamora Attending Provider MD Juanito Barney Other Provider [phone] JAME BARRAZA Primary Care Physician Jame Barraza [...] Physician Dav Peguero MD Primary Care Provider Dav Peguero MD Unavailable ASHUTOSH LING Attending Unavailable ASHUTOSH LING Referring Unavailable DAV PEGUERO Primary Care Unavailable Shanna IVORY Attending Unavailable Shnana IVORY Attending Unavailable Shanna IVORY Attending Unavailable DAV PEGUERO Attending Unavailable DAV PEGUERO Attending Unavailable LUCINDA VICKERS Attending Unavailable Dav Peguero Primary Care Unavailable Benigno Harper Attending Benigno Nye Admitting Dva Carbajal MD Primary Care Provider Benigno Harper MD Attending Provider Rachna HAHN, Alonzo Bobo Attending Unavailable Allergies Allergy Classification Reported Allergen(s) Allergy Type Date of Onset Reaction(s) Facility (20 sources) Albuterol; Translations: [albuterol] Drug Allergy 11-12-19 12 Headache (finding), Other: See Comments, Headache [facility] (20 sources) hydroCHLOROthiazide; Translations: [hydroCHLOROthiazide TABS] Drug Allergy 08-21-19 23 Eruption of skin (disorder), Rash [facility] (6 sources) Sulfamethoxazole / Trimethoprim; Translations: [sulfamethoxazole-trim ethoprim] Drug Allergy Unknown (qualifier value) [facility] (1 source) Albuterol Drug Allergy [facility] (9 sources) hydroCHLOROthiazide; Translations: [HYDROCHLOROTHIAZIDE] Drug Allergy 08-21-19 [facility] (5 sources) Adhesive Tape; Translations: [adhesive tape] Propensity to adverse reactions 08-22-19 [facility] (5 sources) Amoxicillin; Translations: [amoxicillin] Drug Allergy 06-26-19 Blood in urine (finding) [facility] (5 sources) hydroCHLOROthiazide Drug Allergy 11-01-19 [facility] (1 source) Albuterol Drug Allergy 06-26-19 [facility] Repository (1 source) Amoxicillin Drug Allergy 06-26-19 [facility] (1 source) hydroCHLOROthiazide Drug Allergy 06-26-19 [facility] Repository Medications Current Medications Medication [...] Coronary arteriosclerosis; Translations: [Atherosclerotic heart disease of solomon coronary artery without angina pectoris] Onset: 08-27-2022 [...] sources) Long-term current use of anticoagulant; 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] Onset: 11-29-2023 Episodic [...] Range Facility [place] [address] Magnetic Resonance Report Signed Patient: OLAF BRIONES MR#: [id number] : 1945 Acct:[id number] Age/Sex: 79 / M ADM Date: 07/31/24 Loc: MRI Attending Dr: David Kirby NP Ordering Physician: David Kirby NP Date of Service: 07/31/24 Procedure(s): MR lumbar spine wo con Accession Number(s): [id number] cc: DAV PEGUERO ; David Kirby NP [place] [id number] Patient Name: OLAF BRIONES MRN: [id number] date: 1945 Sex: M Assigned Patient Location: MRI Current Patient Location: MRI Accession/Order Number: [id number] Exam Date: 07/31/2024 11:52 Report Date: 07/31/2024 [...] Monreal M.D. 07/31/2024 12:07 PM Dictation Location: [place] [address] Electronically authenticated by: [id number] Y Date: 07/31/2024 12:07 Dictated By: Lucinda Monreal M.D. Signed By: 07/31/24 1210 DD/ 1207 TD/TT: Staff Sonographer: [facility] Radiology, Radiologi MD yo - 07/31/2024 [place] [address] Magnetic Resonance Report Signed Patient: OLAF BRIONES MR#: [id number] : 1945 Acct:[id number] Age/Sex: 79 / M ADM Date: 07/31/24 Loc: MRI Attending Dr: David Kirby NP Ordering Physician: David Kirby NP Date of Service: 07/31/24 Procedure(s): MR lumbar spine wo con Accession Number(s): [id number] cc: DAV PEGUERO ; David Kirby NP [address] [address] Patient Name: OLAF BRIONES MRN: [facility]:[id number] date: 1945 Sex: M Assigned Patient Location: MRI Current Patient Location: MRI Accession/Order Number: [id number] Exam Date: 07/31/2024 11:52 Report Date: 07/31/2024 [...] Monreal M.D. 07/31/2024 12:07 PM Dictation Location: [place] [address] Electronically authenticated by: [id number] Y Date: 07/31/2024 12:07 Dictated By: Lucinda Monreal M.D. Signed By: 07/31/24 1210 DD/ 1207 TD/TT: Staff Sonographer: [facility] Radiology Study observation (narrative) [facility] MR LUMBAR SPINE WO CONOrdere d By: Radiologist Radiology on 07-31-2024 [facility] [employer] Work Phone: [facility] ECG *CARDIOLOGY ONLY*on 06-25-2024 [facility] ECG *CARDIOLOGY ONLY* [facility] Main [place] [address] [place] [address] Electrocardiograph Report Signed Patient: Olaf Briones MR#: [id number] : 1945 Acct:[id number] Age/Sex: 79 / M ADM Date: 06/25/24 Loc: [facility] Room: Type: [facility] Attending Dr: Benigno Harper MD Ordering Provider: Benigno Harper MD Date of Service: 06/25/2410/13/1351 ECG/[facility] ECG *CARDIOLOGY ONLY*: I25.10 - Atherosclerotic heart disease of solomon coronary... Copies to: Test Reason : Blood [...] in Lateral leads Confirmed by Benigno Harper ([id number]) on 06/25/2024 6:07:54 PM Referred By: Electronically Signed By: Benigno Harper Transcribed By: MUS Signed By Benigno Harper MD 06/25/24 1807 Normal [facility] ALBUMIN, RANDOM URINE W/CREA Jenny 04-05-2024 ALBUMIN, URINE 0.9 mg/dL Normal See Note: [facility] Comment on above: Result Comment: Marily aranda Range: Reference Range Not established Performed By: #### 7 600, 6517 #### [facility] [address], [address] [place] [address] [employer]: Brennon Zhong MD #### [id number], 05819 #### [facility] [address] [place], [place] [phone] [employer] Roller: Agnes Cervantes ALBUMIN/CREATININE RATIO, RANDOM URINE 8 [...] #### 7 600, 6517 #### [facility] [address], [address] [place] [address] [employer]: Brennon Zhong MD #### 6399, 92534 #### [facility] [address] [place], [place] [phone] [employer] Roller: Agnes Cervantes Creatinine (U) [Mass/Vol] 117 mg/dL Normal 20-320 [facility] Comment on above: Performed By: #### 7 600, 6517 #### [facility] [address], [address] [place] [address] [employer] Roller: Brennon Zhong MD #### 6399, 35991 #### [facility] [address] [place] [phone] [employer]ler: Agnes Cervantes CBC (INCLUDES DIFF/PLT)on Basophils (Bld) [#/Vol] 0.021 10*3/uL Normal 0-200 [facility] Comment on above: Performed By: #### 7 600, 6517 #### [facility] [place] [address] [place] , [address] [place] [address] [employer]ler: Brennon Zhong MD #### 6399, 72941 #### [facility] [address] [employer]ler: Agnes Cervantes Basophils/100 WBC (Bld) 0.3 % Normal [facility] Comment on above: Performed By: #### 7 600, 6517 #### [facility] [place] [address] [place] , [address] [place] [address] [employer] Roller: Brennon Zhong MD #### 6399, 42603 #### [facility] [address] [employer]ler: Agnes Cervantes Eosinophils (Bld) [#/Vol] 0.099 10*3/uL Normal 15-500 [facility] Comment on above: Performed By: #### 7 600, 6517 #### [facility] [place] [address] [place] , [address] [place] [address] [employer]ler: Brennon Zhong MD #### 6399, 25470 #### [facility] [address] [employer]ler: Agnes Cervantes Eosinophils/100 WBC (Bld) 1.4 % Normal [facility] Comment on above: Performed By: #### 7 600, 6517 #### [facility] [place] [address] [place] , [address] [place] [address] [employer] Roller: Brennon Zhong MD #### 6399, 32292 #### [facility] [address] [employer]ler: Agnes Cervantes Erythrocyte distribution width (RBC) [Ratio] 13.6 % Normal 11.0-15.0 [facility] Comment on above: Performed By: #### 7 600, 6517 #### [facility] [place] [address] [place] , [address] [place] [address] [employer] Roller: Brennon Zhong MD #### 6399, 15843 #### [facility] [address] [employer] Roller: Agnes Cervantes Hematocrit (Bld) [Volume fraction] 43.9 % Normal 38.5-50.0 [facility] Comment on above: Performed By: #### 7 600, 6517 #### [facility] [place] [address], [address] [place] [address] [employer] Roller: Brennon Zhong MD #### 6399, 10141 #### [facility] [address] [employer] Roller: Agnes Cervantes Hemoglobin (Bld) [Mass/Vol] 14.9 g/dL Normal 13.2-17.1 [facility] Comment on above: Performed By: #### 7 600, 6517 #### [facility] [place] [address], [address] [place] [address] [employer] Roller: Brennon Zhong MD #### 6399, 62024 #### [facility] [address] [employer] Roller: Agnes Cervantes Lymphocytes (Bld) [#/Vol] 1.761 10*3/uL Normal 850-3900 [facility] Comment on above: Performed By: #### 7 600, 6517 #### [facility] [address], [address] [place] [address] [employer] Roller: Brennon Zhong MD #### 6399, 04070 #### [facility] [address] [place] [address] Cheese [employer]ake Roller: Agnes Cervantes Lymphocytes/100 WBC (Bld) 24.8 % Normal [facility] Comment on above: Performed By: #### 7 600, 6517 #### [facility] [address], [address] [place] [address] Cheese [employer] Roller: Brennon Zhong MD #### 6399, 50975 #### [facility] [address] [place], [place] [phone] [employer] Roller: Agnes Cervantes MCH (RBC) [Entitic mass] 31.7 pg Normal 27.0-33.0 [facility] Comment on above: Performed By: #### 7 600, 6517 #### [facility] [address], [address] [place] [address] Cheese Pancake Roller: Brennon Zhong MD #### 6399, 30575 #### [facility] [address] [place] [address] [employer]ake Roller: Agnes Cervantes MCHC (RBC) [Mass/Vol] 33.9 g/dL [...] #### 7 600, 6517 #### [facility] [address], [address] [place] [address] [employer] Roller: Brennon Zhong MD #### 6399, 399[address] #### [facility] [place] [address] [employer]ler: Agnes Cervantes MCV (RBC) [Entitic vol] 93.4 fL Normal 80.0-100.0 [facility] Comment on above: Performed By: #### 7 600, 6517 #### [facility] [address], [address] [place] [address] [employer] Roller: Brennon Zhong MD #### 6399, 71060 #### [facility] [address] [place] [address] [employer]ake Roller: Agnes Cervantes Monocytes (Bld) [#/Vol] 0.568 10*3/uL Normal 200-950 [facility] Comment on above: Performed By: #### 7 600, 6517 #### [facility] [place] [address] [place] , [address] [place] [address] Cheese [employer] Roller: Brennon Zhong MD #### 6399, 29782 #### [facility] [address] [employer] Pancake Roller: Agnes Cervantes Monocytes/100 WBC (Bld) 8.0 % Normal [facility] Comment on above: Performed By: #### 7 600, 6517 #### [facility] [place] [address], [address] [place] [address] [employer]ake Roller: Brennon Zhong MD #### 6399, 30478 #### [facility] [address] [employer] Roller: Agnes Cervantes Neutrophils (Bld) [#/Vol] 4.651 10*3/uL Normal 3462-6088 [facility] Comment on above: Performed By: #### 7 600, 6517 #### [facility] [place] [address], [address] [place] [address] Cheese Pancake Roller: Brennon Zhong MD #### 6399, 23571 #### [facility] [address] Cheese Pancake Roller: Agnes Cervantes Neutrophils/100 WBC (Bld) 65.5 % Normal [facility] Comment on above: Performed By: #### 7 600, 6517 #### [facility] [address], [address] [place] [address] Cheese [employer]ake Roller: Brennon Zhong MD #### 6399, 91722 #### [facility] [address] [employer]ake Roller: Agnes Cervantes Platelet mean volume (Bld) [Entitic vol] 10.9 fL Normal 7.5-12.5 [facility] Comment on above: Performed By: #### 7 600, 6517 #### [facility] [address], [address] [place] [address] Cheese [employer] Roller: Brennon Zhong MD #### 6399, 36132 #### [place] [address] Cheese Pancake Roller: Agnes Cervantes Platelets (Bld) [#/Vol] 225 10*3/uL Normal 140-400 [facility] Comment on above: Performed By: #### 7 600, 6517 #### [facility] [place] [id number] [facility], [address] [place] [address] Cheese Pancake Roller: Brennon Zhong MD #### 6399, 60316 #### [facility] [address] [place] [phone] Cheese [employer]ake Roller: Agnes Cervantes RBC (Bld) [#/Vol] 4.70 10*6/uL Normal 4.20-5.80 [facility] Comment on above: Performed By: #### 7 600, 6517 #### [facility] [address], [address] [place] [address] Cheese Pancake Roller: Brennon Zhong MD #### 6399, 85128 #### [facility] Cheese Pancake Roller: Agnes Cervantes WBC (Bld) [#/Vol] 7.1 10*3/uL Normal 3.8-10.8 [facility] Comment on above: Performed By: #### 7 600, 6517 #### [facility] [address], [address] [place] [address] Cheese Pancake Roller: Brennon Zhong MD #### 6399, 20620 #### [facility] [address] [place] [phone] [employer] Pancake Roller: Agnes Cervantes [facility] 04-05-2024 Albumin [Mass/Vol] 4.3 g/dL Normal 3.6-5.1 [facility] Comment on above: Performed By: #### 7 600, 6517 #### [facility] [address], [address] [place] [address] Cheese Pancake Roller: Brennon Zhong MD #### 6399, 63168 #### [place] [address] Cheese Pancake Roller: Agnes Cervantes Albumin/Globulin [Mass ratio] 1.9 {ratio} Normal 1.0-2.5 [facility] Comment on above: Performed By: #### 7 600, 6517 #### [facility] [address], [address] [place] [address] Cheese Pancake Roller: Brennon Zhong MD #### 6399, 43707 #### [place] [address] Cheese Pancake Roller: Agnes Cervantes ALP [Catalytic activity/Vol] 141 U/L Normal 35-144 [facility] Comment on above: Performed By: #### 7 600, 6517 #### [facility] [address], [address] [place] [address] Cheese Pancake Roller: Brennon Zhong MD #### 6399, 90553 #### [facility] [address] [place] [address] Cheese Pancake Roller: Agnes Cervantes ALT [Catalytic activity/Vol] 29 U/L Normal 9-46 [facility] Comment on above: Performed By: #### 7 600, 6517 #### [facility] [address], [address] [place] [address] Cheese Pancake Roller: Brennon Zhong MD #### 6399, 39758 #### [facility] [address] [place] [address] Cheese Pancake Roller: Agnes Cervantes AST [Catalytic activity/Vol] 22 U/L Normal 10-35 [facility] Comment on above: Performed By: #### 7 600, 6517 #### [facility] [address], [address] [place] [address] Cheese Pancake Roller: Brennon Zhong MD #### 6399, 30291 #### [facility] [address] [place] [address] Cheese Pancake Roller: Agnes Blantoni Bilirubin [Mass/Vol] 0.7 mg/dL Normal 0.2-1.2 [facility] Comment on above: Performed By: #### 7 600, 6517 #### [facility] [address], [address] [place] [address] Cheese Pancake Roller: Brennon Zhong MD #### 6399, 28881 #### [facility] [address] [place] [address] Cheese Pancake Roller: Agnes Blantoni BUN/CREATININE RATIO SEE NOTE: Normal 6-22 [facility] Comment on above: Result Comment: Not Reported: BUN and Creatinine are within reference range. Performed By: #### 7 600, 3617 #### [facility] [address], [address] [place] [address] Cheese [employer] Roller: Brennon Zhong MD #### 6399, 59288 #### [facility] [address] [place] [address] [employer] Roller: Agnes Sánchez Flati Calcium [Mass/Vol] 9.3 mg/dL Normal 8.6-10.3 [facility] Comment on above: Performed By: #### 7 600, 6517 #### [facility] [address], [address] [place] [address] [employer] Roller: Brennon Zhong MD #### 6399, 66888 #### [facility] [address] [place] [address] [employer] Roller: Agnes Sánchez Flati Chloride [Moles/Vol] 105 mmol/L Normal 98-110 [facility] Comment on above: Performed By: #### 7 600, 6517 #### [facility] [address], [address] [place] [address] Cheese Pancake Roller: Brennon Zhong MD #### 6399, 99612 #### [facility] [address] [place] [address] [employer] Roller: Agnes R Flati CO2 [Moles/Vol] 29 mmol/L Normal 20-32 [facility] Comment on above: Performed By: #### 7 600, 6517 #### [facility] [address], [address] [place] [address] Cheese Pancake Roller: Brennon Zhong MD #### 6399, 62395 #### [facility] [address] [place] [address] Cheese Pancake Roller: Agnes Cervantes Creatinine [Mass/Vol] 0.76 mg/dL Normal 0.70-1.[address] [facility] Comment on above: Performed By: #### 7 600, 6517 #### [facility] [address], [address] [place] [address] Cheese Pancake Roller: Brennon Zhong MD #### 6399, 81618 #### [facility] [address] [place] [address] Cheese [employer]ake Roller: Agnes Cervantes GFR/1.73 sq M.predicted among non-blacks MDRD (S/P/Bld) [Vol rate/Area] 92 mL/min/{1.73_m2} Normal > OR = 60 [facility] Comment on above: Performed By: #### 7 600, 6517 #### [facility] [place] [address] [employer]ler: Brennon Zhong MD #### 6399, 32454 #### [facility] [address] [place] [address] Cheese Pancake Roller: Agnes Cervantes Globulin (S) [Mass/Vol] 2.3 g/dL Normal 1.9-3.7 [facility] Comment on above: Performed By: #### 7 600, 6517 #### [facility] [address], [address] [place] [address] Cheese [employer] Roller: Brennon Zhong MD #### 6399, 49405 #### [facility] [phone] Cheese Pancake Roller: Agnes Cervantes Glucose [Mass/Vol] 134 mg/dL High 65-99 [facility] Comment on above: Result Comment: Fasting reference interval For someone without known diabetes, a glucose value >125 mg/dL indicates that they may have diabetes and this should be confirmed with a follow-up test. Performed By: #### 7 600, 6517 #### [facility] [address], [address] [place] [address] Cheese [employer] Roller: Brennon Zhong MD #### 6399, 68863 #### [facility] [address] [place] [address] Cheese [employer]ake Roller: Agnes Sánchez Flati Potassium [Moles/Vol] 4.5 mmol/L Normal 3.5-5.[address] [facility] Comment on above: Performed By: #### 7 600, 6517 #### [facility] [address], [address] [place] [address] Cheese Pancake Roller: Brennon Zhong MD #### 6399, 56782 #### [facility] [address] [place] [address] Cheese [employer]ake Roller: Agnes Sánchez Flati Protein [Mass/Vol] 6.6 g/dL Normal 6.1-8.1 [facility] Comment on above: Performed By: #### 7 600, 6517 #### [facility] [address], [address] [place] [address] Cheese [employer]ake Roller: Brennon Zhong MD #### 6399, 69964 #### [facility] [address] [place] [address] Cheese [employer] Roller: Agnes Sánchez Flati Sodium [Moles/Vol] 141 mmol/L Normal 135-146 [facility] Comment on above: Performed By: #### 7 600, 6517 #### [facility] [address], [address] [place] [address] Cheese [employer] Roller: Brennon Zhong MD #### 6399, 80512 #### [facility] [address] Cheese [employer]ake Roller: Agnes Blantoni Urea nitrogen [Mass/Vol] 16 mg/dL Normal 7-25 [facility] Comment on above: Performed By: #### 7 600, 6517 #### [facility] [address], [address] [place] [address] Cheese [employer] Roller: Brennon Zhong MD #### 6399, 86244 #### [facility] [address] Cheese Pancake Roller: Agnes Cervantes LIPID PANEL, [facility] - Cholesterol [Mass/Vol] 118 mg/dL Normal <200 [facility] Comment on above: Order Comment: FASTI NG:YES FASTING: YES Performed By: #### 7 600, 6517 #### [facility] [address], [address] [place] [address] Cheese [employer]ake Roller: Brennon Zhong MD #### 6399, 16300 #### [facility] [address] [employer]ake Roller: Agnes Cervantes Cholesterol in HDL [Mass/Vol] 45 mg/dL Normal > OR = 40 [facility] Comment on above: Order Comment: FASTI NG:YES FASTING: YES Performed By: #### 7 600, 6517 #### [facility] [address], [address] [place] [address] Cheese [employer] Roller: Brennon Zhong MD #### 6399, 02404 #### [facility] [address] [employer]ler: Agnes Cervantes Cholesterol in LDL [Mass/Vol] 52 [...] LDL-C. Suresh RUBIO et al. MICHAEL. 2013;310(19): 9375-5686 (http://education.Bacula.Composeright/faq/YAK662) Performed By: #### 7 600, 6517 #### [facility] [address], [address] [place] [address] Cheese [employer] Roller: Brennon Zhong MD #### 6399, 27871 #### [facility] [address] [place] [address] [employer] Roller: Agnes Cervantes Cholesterol.total/Reny sterol in HDL [Mass ratio] 2.6 {ratio} Normal <5.0 [facility] Comment on above: Order Comment: FASTI NG:YES FASTING: YES Performed By: #### 7 600, 6517 #### [facility] [address], [address] [place] [address] [employer] Roller: Brennon Zhong MD #### 6399, 65316 #### [facility] [place] [address] [employer] Roller: Agnes Cervantes NON HDL CHOLESTEROL 73 mg/dL (calc) Normal <130 [facility] Comment on above: Order Comment: FASTI NG:YES FASTING: YES Result Comment: For patients with diabetes plus 1 major ASCVD risk factor, treating to a non-HDL-C goal of <100 mg/dL (LDL-C of <70 mg/dL) is considered a therapeutic option. Performed By: #### 7 600, 6517 #### [facility] [address], [address] [place] [address] Cheese [employer] Roller: Brennon Zhong MD #### 6399, 72015 #### [facility] [address] [place], [place] [phone] Cheese Pancake Roller: Agnes Cervantes Triglyceride [Mass/Vol] 125 mg/dL Normal <150 [facility] Comment on above: Order Comment: FASTI NG:YES FASTING: YES Performed By: #### 7 600, 6517 #### [facility] [address], [address] [place] [address] Cheese [employer] Roller: Brennon Zhong MD #### [id number], [id number] #### [facility] [address] [place] [address] [employer]: Agnes Cervantes PSA, TOTALon 04-05-2024 PSA, TOTAL 1.60 ng/mL Normal < OR = 4.00 [facility] Comment on above: Result Comment: The total PSA value from this assay system is standardized against the WHO standard. The test result will be approximately 20% lower when compared to the equimolar-standardized total PSA (Shira Ernesto). Comparison of serial PSA results should be interpreted with this fact in mind. This test was performed using the Siemens chemiluminescent method. Values obtained from different assay methods cannot be used interchangeably. PSA levels, regardless of value, should not be interpreted as absolute evidence of the presence or absence of disease. Performed By: #### 7 600, 6517 #### [facility] [address], [address] [place] [address] [employer] Roller: Brennon Zhong MD #### 6399, [address]74 #### [facility] [place] [address] [employer]ler: Agnes Cervantes Laboratory - Hematology and Cell countson 04-02-2024 HbA1c (Bld) [Mass fraction] 6.7 % [facility] No Panel Informationon 04-02 Interpretation and review of laboratory results Abnormal [facility] Urology Office/Clinic Noteon 03-27-2024 Urology Office/Clinic Note Urology Office/Clinic Note Chief Complaint kidney stone HPI Staff 78yr old male pt here for 4mo f/u with metabolic workup. S/P TURP 2006, & TURP 08/28/22 at [facility]. Previous Dx: kidney stone, BPH with urinary [...] obscured. Stone Analysis 08/28/22 - 50% CaOx [place], 40% CaOx Di, and 10% minor components. [...] TURP 2006. [1] S/p TURP 08/28/22 at [facility]. No urine sample provided. Not taking any [...] today. Denies gross hematuria. 5. Anticoagulated (Z79.01: detention (current) use of anticoagulants) No longer on Brilinta (due to SE of back pain) now on Plavix. Also Aspirin qod. Follow-up With When Contact Information CACHORRO HAHN, Shanna Sánchez, URL [address] [place] [address]- Additional Instructions: 1 year w/ KUB Patient [...] obstructive prost (more content not included)... Normal [facility] Comment on above: Result Comment: Elec tronically Signed By: Shanna IVORY MD\.br\Date and Time Signed: 03/27/24 09:27 EST\.br\Electronically Co-Signed By: Esperanza Gupta.br\Date and Time Co-Signed: 03/27/24 09:26 EST ALL BUNon 12-13-2023 Urea nitrogen [Mass/Vol] 15 mg/dL 7.0 - 18.0 mg/dL [facility] ALL CARBON DIOXIDEon CO2 [Moles/Vol] 26.1 mmol/L 21.0 - 32.0 mmol/L [facility] ALL CHLORIDEon 12-13-2023 Chloride [Moles/Vol] 106 mmol/L 98 - 10 7 mmol/L [facility] ALL PHOSPHOROUSon 12-13-2023 Phosphate [Mass/Vol] 3.5 mg/dL 2.6 - 4 .7 mg/dL [facility] ALL SODIUMon 12-13-2023 Sodium [Moles/Vol] 141 mmol/L 136 - 145 mmol/L [facility] ALL URIC ACIDon 12-13-2023 Urate [Mass/Vol] 3.6 mg/dL 3.5 - 7.2 mg/dL [facility] CALCIUM 24 HOUR URINEon 11-19 CALCIUM 24 HOUR URINE 202.8 [facility] CALCIUM URINE RANDOM 15.6 mg/dL 5.1 - 2 1.0 mg/dL [facility] CALCIUMon 12-13-2023 Calcium [Mass/Vol] 9.2 mg/dL 8.5 - 10. 1 mg/dL [facility] CREATININE 24 HOUR URINEon 1 CREATININE 24 HOUR URINE 1715.22 [facility] CREATININE URINE RANDOM 131.94 mg/dL 20.0 0 - 300.00 mg/dL [facility] TOTAL VOLUME 24 HOUR URINE 1300 mL/24hr [facility] No Panel Informationon 12-12 [facility] SODIUM 24 HOUR URINEon 12-12 Interpretation and review of laboratory results Abnormal [facility] Sodium (U) [Moles/Vol] 113 mmol/L High 30 - 90 mmol/L [facility] SODIUM 24 HOUR URINE 147 [facility] CREATININEon 12-13-2023 Creatinine [Mass/Vol] 0.98 mg/dL 0.70 - 1.30 mg/dL [facility] GFR/1.73 sq M.predicted CKD-EPI (S/P/Bld) [Vol rate/Area] >60 >=60 mL/min/1.7 3m 2 [facility] EGFR-NON AF MONEGASQUE >60 >=60 mL/min/1.7 3m 2 [facility] Ambulatory Visit Summaryon 1 Ambulatory Visit [...] Shanna IVORY MD Where: [facility] [address] [facility] [place] [address]- You Need to Schedule the Following Appointments Follow Up with Shanna IVORY MD, URL When: Where: [facility] [address], [place] [address]- Medications What How Much When Instructions Unchanged [...] may eat and drink normally. ? Take wiyg-nha-ksaphaz and prescription medicines (more content not included)... Normal [facility] Urology Office/Clinic Noteon 11-29-2023 Urology Office/Clinic Note Urology Office/Clinic Note Chief Complaint kidney stone, BPH HPI Staff 1 yr w/ KUB. Previous dx: BPH with obstruction, kidney stone, AMH. S/p TURP 08/28/22 at [facility]. *Allopurinol 300mg qd Dysuria: denies Incomplete [...] obscured. Stone Analysis 08/28/22 - 50% CaOx [place], 40% CaOx Di, and 10% minor components. [...] TURP 2006. [1] S/p TURP 08/28/22 at [facility]. Not taking any prostate or bladder meds. Voiding well. 3. Erectile dysfunction (N52.9: Male erectile dysfunction, unspecified) Shares unable to achieve erection after second TURP, was able to achieve after first TURP. Explained potential cause of this (extensive coagulation from bleeding.). 4. Asymptomatic microscopic hematuria (R31.21: Asymptomatic microscopic hematuria) Chronic [1]. Pt unable to provide urine sample today. 5. Anticoagulated (Z79.01: detention (current) use of anticoagulants) No longer on Brilinta (due to SE of back pain) now on Plavix. Also Aspirin qod. Follow-up With When Contact Information CACHORRO HAHN, Shanna Sánchez, URL [facility] [address], [place] [address]- Additional Instructions: 4 mos with metabolic workup [...] renal ca (more content not included)... Normal [facility] Comment on above: Result Comment: Elec tronically Signed By: Shanna IVORY MD\.br\Date and Time Signed: 11/29/23 09:53 EDT\.br\Electronically Co-Signed By: Cathi Ivan\.br\Date and Time Co-Signed: 11/29/23 09:47 EDT Sea 09-06-2022 JOCELYNN Telephone (URON) ----- OLAF BRIONES ([id number]) 1945 M Date Time Provider Department 09/06/22 JUSTINE WILSON During your visit today, we recorded the following information about you: Justine Wilson RN 09/06/2022 10:31 AM Signed ----- Message from Jocelin Gr sent at 09/06/2022 8:23 AM EDT ----- Regarding: medciation script needed Contact: Pt is calling in to see if the flomax can be called in. The pharmacy is not at [facility]. I will need to call them when [...] Hematuria [R31.9] 08/27/2022 Coronary artery disease involving solomon hinton*08/27/2022 Adverse reaction to antiplatelet agent [T45.7X5*08/27/2022 Myocardial infarction (HCC) [I21.9] 08/27/2022 Essential (primary) hypertension [I10] 08/27/2022 Type 2 diabetes mellitus without complication, *08/27/2022 Leukocytosis [D72.829] 08/27/2022 Malnutrition of mild degree (HCC) [E44.1] 08/29/2022 Encounter Status:Closed by JUSTINE WILSON RN on 09/06/[address] [facility] Office Visit (Cardiology)on 09-05-2022 Follow-up [...] Status: Hold For - Scheduling Requested for: [id number] Agreement : I agree to have my patient participate in the phase III outpatient cardiac rehabilitation program after completion of the phase II program. Consent : I consent to have my patient participate in the cardiac rehabilitation program. I will continue regular medical care of my patient throughout his/her participation in the program. Individualized Treatment Plan and Exercise Prescription : Request the Cheese Pancake Roller to share responsibility for developing an ITP [...] in adult Healthy Weight Tips; Status:Complete; Done: [id number] Some eating tips that can help you lose weight.; Status:Complete; Done: [id number] SocHx: Former smoker Tobacco Use Screening; Status:Complete; Done: [id number] Patient Instructions Please bring all medicines, vitamins, and herbal supplements with you when you come to the office. Prescriptions will not be filled unless you are compliant with your follow up appointments or have a follow up appointment scheduled as per instruction of your physician. Refills should be requested at the time of your visit. Follow up in 4 months [facility] -one month History of Present [...] he developed hematuria ultimately went to the [facility] where he underwent TURP and removal [...] 1 TABLET (more content not included)... Normal [facility] Tobacco Screening.on 023 Adult depression screening assessment No [facility] [employer] DO Work Phone: Fall risk assessment a) No falls within the last year [facility] [employer] 250 DO Work Phone: Tobacco use status CPHS b) No M [facility] [employer] DO Work Phone: Sea [facility] ----- OLAF BRIONES ([id number]) 1945 M Date Time Provider Department 09/04/22 DEBORAH IBARRA PODCCPuneet During your visit today, we recorded the following information about you: Deborah Ibarra RN 09/04/2022 12:52 PM Signed PATIENT INFORMATION Record ID: [id number] Patient Name: [facility]: [facility]: [facility] Attending: David Andrews Center: Urology INSTRUCTIONS SN to remind patient of appointment date, time, location All Clear All Clear SURVEY INFORMATION Medical/Nurse Taxi Cab Driver: Deborah Ibarra 1. Your discharge instructions are [...] Reason for Visit: Follow Up Phone Call [1362] Cmt: All Clear Prescriptions as of 09/04/2022 [...] Hematuria [R31.9] 08/27/2022 Coronary artery disease involving solomon hinton*08/27/2022 Adverse reaction to antiplatelet agent [T45.7X5*08/27/2022 Myocardial infarction (HCC) [I21.9] 08/27/2022 Essential (primary) hypertension [I10] 08/27/2022 Type 2 diabetes mellitus without complication, *08/27/2022 Leukocytosis [D72.829] 08/27/2022 Malnutrition of mild degree (HCC) [E44.1] 08/29/2022 Encounter Status:Closed by DEBORAH IBARRA on 09/04/[address] [facility] CBC panel Auto (Bld)on 08-31 Erythrocyte distribution width (RBC) [Ratio] 12.8 % Normal 11.5-15.[address] [facility] Comment on above: Order Comment: Speci men Type: BLOOD SPECIMENOrdering Facility: [facility] Address: [address] [place] [address] Performed By: #### 5 8410-2 ####[facility] LABIA [id number] [place] [address] [place] Hematocrit (Bld) [Volume fraction] 30.7 % Low 39.0-51.[address] [facility] Comment on above: Order Comment: Speci men Type: BLOOD SPECIMENOrdering Facility: [facility] Address: [address] [place] [address] Performed By: #### 5 8410-2 ####[facility] LABCLIA [id number] [place] [address] [place] Hemoglobin (Bld) [Mass/Vol] 10.4 g/dL Low 13.0-17.[address] [facility] Comment on above: Order Comment: Speci men Type: BLOOD SPECIMENOrdering Facility: [facility] Address: [address] Performed By: #### 5 8410-2 ####[facility]IA [id number] [address] STATES OF [facility] MCH (RBC) [Entitic mass] 31.4 pg Normal 26.0-34.[address] [facility] Comment on above: Order Comment: Speci men Type: BLOOD SPECIMENOrdering Facility: [facility] Address: [address] Performed By: #### 5 8410-2 ####[facility] LABIA [id number] [address] MCHC (RBC) [Mass/Vol] 33.9 g/dL Normal 30.5-36.0 [facility] Comment on above: Order Comment: Speci men Type: BLOOD SPECIMENOrdering Facility: [facility] Address: [address] Performed By: #### 5 8410-2 ####[facility] LABIA [id number] [address] STATES [facility] MCV (RBC) [Entitic vol] 92.7 fL Normal 80.0-100.0 C [facility] Comment on above: Order Comment: Speci men Type: BLOOD SPECIMENOrdering Facility: [facility] Address: [address] Performed By: #### 5 8410-2 ####[facility] [id number] [address] [place] Nucleated RBC (Bld) [#/Vol] 10*3/uL Normal <0.[address] [facility] Comment on above: Order Comment: Speci men Type: BLOOD SPECIMENOrdering Facility: [facility] Address: [address] Performed By: #### 5 8410-2 ####[facility] LABCLIA [id number] [place] [address] [place] Platelet mean volume (Bld) [Entitic vol] 11.5 fL Normal 9.0-12.[address] [facility] Comment on above: Order Comment: Speci men Type: BLOOD SPECIMENOrdering Facility: [facility] Address: [address] Performed By: #### 5 8410-2 ####[facility]IA [id number] [place] [address] [place] Platelets (Bld) [#/Vol] 194 10*3/uL Normal 150-[address] [facility] Comment on above: Order Comment: Speci men Type: BLOOD SPECIMENOrdering Facility: [facility] Address: [address] [place], [place] [address] Performed By: #### 5 8410-2 ####[facility]IA [id number] [place] [address] [place] RBC (Bld) [#/Vol] 3.31 10*6/uL Low 4.20-6.00 [facility] Comment on above: Order Comment: Speci men Type: BLOOD SPECIMENOrdering Facility: [facility] Address: [address] [place] [address] Performed By: #### 5 8410-2 ####[facility] LABCLIA [id number] [place] [address] [place] WBC (Bld) [#/Vol] 10.56 10*3/uL Normal 3.70-11.00 [facility] Comment on above: Order Comment: Speci men Type: BLOOD SPECIMENOrdering Facility: [facility] Address: [address] [place], [place] [address] Performed By: #### 5 8410-2 ####[facility] LABCLIA [id number] [place] [id number] [facility] CNDSon 08-31-2022 CNDS HNO ID: [id number] Author: David Andrews MD Service: Urology Author [...] stable in SICU, ready to transfer to [facility]. Hernandez light pink on traction. Discontinued on Zosyn given negative blood and urine cultures. - DOA#3/POD#2: Hemoglobin continues to be stable. Urine light pink off traction. Transferred to [facility] - DOA#4/POD#3: Will discharge today with [...] These medications were sent to [facility] [address] [place] [address] Hours: Saturday-Saturday 7am-8pm, Saturday, Saturday and Holidays [...] content not included)... Normal [facility] Comprehensive metabolic 2000 panelon 08-31-2022 Albumin [Mass/Vol] 3.8 g/dL Low 3.9-4.9 [facility] Comment on above: Order Comment: Speci men Type: BLOOD SPECIMENOrdering Facility: [facility] Address: [address] [place] [address] Performed By: #### 2 4323-8, , 2776-02 ####[facility] LABIA [id number] [place] [address] [place] ALP [Catalytic activity/Vol] 116 U/L High 38-[address] [facility] Comment on above: Order Comment: Speci men Type: BLOOD SPECIMENOrdering Facility: [facility] Address: [address] [place] [address] Performed By: #### 2 4323-8, , 2776-02 ####[facility] LABIA [id number] [address] [place] ALT [Catalytic activity/Vol] 23 U/L Normal 10-[address] [facility] Comment on above: Order Comment: Speci men Type: BLOOD SPECIMENOrdering Facility: [facility] Address: [address] Performed By: #### 2 4323-8, , 2776-02 ####[facility] LABIA [id number] [place] [address] [place] Anion gap [Moles/Vol] 9 mmol/L Normal 9-18 [facility] Comment on above: Order Comment: Speci men Type: BLOOD SPECIMENOrdering Facility: [facility] Address: [address] [place] [address] Performed By: #### 2 4323-8, 62282-3, 2776-02 ####[facility] LABCLIA [id number] [place] [address] [place] AST [Catalytic activity/Vol] 19 U/L Normal 14-[address] [facility] Comment on above: Order Comment: Speci men Type: BLOOD SPECIMENOrdering Facility: [facility] Address: [address] [place], [place] [address] Performed By: #### 2 4323-8, , 2776-02 ####[facility] LABIA [id number] [place] [address] [place] Bilirubin [Mass/Vol] 0.3 mg/dL Normal 0.2-1.3 [facility] Comment on above: Order Comment: Speci men Type: BLOOD SPECIMENOrdering Facility: [facility] Address: [address] [place] [address] Performed By: #### 2 4323-8, , 2776-02 ####[facility] LABIA [id number] [place] [address] [place] Calcium [Mass/Vol] 9.1 mg/dL Normal 8.5-10.2 [facility] Comment on above: Order Comment: Speci men Type: BLOOD SPECIMENOrdering Facility: [facility] Address: [address] [place], [place] [address] Performed By: #### 2 4323-8, , 2776-02 ####[facility] LABIA [id number] [place] [address] [place] Chloride [Moles/Vol] 105 mmol/L Normal 97-105 [facility] Comment on above: Order Comment: Speci men Type: BLOOD SPECIMENOrdering Facility: [facility] Address: [address] [place], [place] [address] Performed By: #### 2 4323-8, , 2776-02 ####[facility] LABCLIA [id number] [place] [address] [place] CO2 [Moles/Vol] 25 mmol/L Normal 22-[address] [facility] Comment on above: Order Comment: Speci men Type: BLOOD SPECIMENOrdering Facility: [facility] Address: [address] [place] [address] Performed By: #### 2 4323-8, , 2776-02 ####[facility] LABIA [id number] [place] [address] [place] Creatinine [Mass/Vol] 0.88 mg/dL Normal 0.73-1.22 [facility] Comment on above: Order Comment: Speci men Type: BLOOD SPECIMENOrdering Facility: [facility] Address: [address] [place] [address] Performed By: #### 2 432-8, , 2776-02 ####[facility] LABIA [id number] [place] [address] [place] ESTIMATED GLOMERULAR FILTRATION RATE 89 mL/min/1.73m??? Normal >=[address] [facility] Comment on above: Order Comment: Speci men Type: BLOOD SPECIMENOrdering Facility: [facility] Address: [address] [place] [address] Result Comment: Mariaelena mated Glomerular Filtration Rate [...] #### 2 4323-8, , 2776-02 ####[facility] LABIA [id number] [place] [address] [place] Glucose [Mass/Vol] 114 mg/dL High 74-99 [facility] Comment on above: Order Comment: Speci men Type: BLOOD SPECIMENOrdering Facility: [facility] Address: [address] [place] [address] Result Comment: The [place] [employer] Association (ADA) provides guidance for cutoff [...] Standards of Medical Care in Diabetes 2016, [place] [employer]. Diabetes Care. 2016.39(Suppl 1). Performed By: #### 2 4323-8, , 2776-02 ####[facility] LABCLIA [id number] [place] [address] [place] Potassium [Moles/Vol] 4.2 mmol/L Normal 3.7-5.1 [facility] Comment on above: Order Comment: Speci men Type: BLOOD SPECIMENOrdering Facility: [facility] Address: [address] [place] [address] Performed By: #### 2 4323-8, , 2776-02 ####[facility] LABCLIA [id number] [place] [address] [place] Protein [Mass/Vol] 6.1 g/dL Low 6.3-8.0 [facility] Comment on above: Order Comment: Speci men Type: BLOOD SPECIMENOrdering Facility: [facility] Address: [address] [place], [place] [address] Performed By: #### 2 4323-8, , 2776-02 ####[facility] LABCLIA [id number] [place] [address] [place] Sodium [Moles/Vol] 139 mmol/L Normal 136-144 [facility] Comment on above: Order Comment: Speci men Type: BLOOD SPECIMENOrdering Facility: [facility] Address: [address] [place] [address] Performed By: #### 2 4323-8, 18356-4, 2776-1 ####[facility] [id number] [place] [address] [place] Urea nitrogen [Mass/Vol] 21 mg/dL Normal 9-[address] [facility] Comment on above: Order Comment: Speci men Type: BLOOD SPECIMENOrdering Facility: [facility] Address: [address] [place] [address] Performed By: #### 2 4323-8, , 2776-02 ####[facility] [id number] [place] [address] [place] Magnesium SerPl-mCncon 08-31 Magnesium [Mass/Vol] 2.2 mg/dL Normal 1.7-2.3 [facility] Comment on above: Order Comment: Speci men Type: BLOOD SPECIMENOrdering Facility: [facility] Address: [address] [place] [address] Performed By: #### 2 4323-8, , 2776- ####[facility] [id number] [place] [id number] [place] PT panel Coag (PPP)on 2022 INR Coag (PPP) [Relative time] 1.0 {INR} Normal 0.9-1.[address] [facility] Comment on above: Order Comment: Speci men Type: BLOOD SPECIMENOrdering Facility: [facility] Address: [address] [place], [place] [address] Result Comment: Mago min K Antagonist (VKA) Therapeutic Range: INR 2 to 3 (Target INR of 2.5) Note: For patients treated with VKA drugs, such as warfarin, the [place] [employer] 2012 Guideline recommends [...] Chest 2012, 141:7S-47S Daniel RA, et al. [facility] 2017, 70: 252-289 Performed By: #### 3 4528-0, 55142-6 ####[facility] LABCLIA [id number] [address] [place] PT Coag (PPP) [Time] 10.4 s Normal 9.7-13.0 [facility] Comment on above: Order Comment: Speci men Type: BLOOD SPECIMENOrdering Facility: [facility] Address: [address] [place] [address] Performed By: #### 3 4528-0, 94892-7 ####[facility] LABCLIA [id number] [place] [address] [place] Phosphate SerPl-mCncon 08-31 Phosphate [Mass/Vol] 3.6 mg/dL Normal 2.7-4.8 [facility] Comment on above: Order Comment: Speci men Type: BLOOD SPECIMENOrdering Facility: [facility] Address: [address] [place] [address] Performed By: #### 2 4323-8, 20840-9, 2777-1 ####[facility] LABCLIA [id number] [place] [address] [place] THERAPY NTon 07-14-2023 THERAPY NT HNO ID: [id number] Author: Jenna Duggan, PT Service: Physical Therapy Author Type: Physical Therapist Type: Therapy (PT/OT/Speech/Resp) Filed: 08/31/2022 10:55 AM Note Text: Physical Therapy Treatment SERVICE DATE: 08/31/2022 SERVICE TIME: 0940 to 1003 ROOM: [place] [address] Recommended Discharge Disposition: Home Anticipated Discharge Needs: [...] HLD, DM, recent STEMI (08/20/2022), transferred from [facility] for gross hematuria. Currently with 18Fr 3-way catheter on CBI. 08/28/22: s/p cystoscopy, clot evacuation, cystolitholapaxy, TURP. Admitted to SICU postoperatively due to pressor requirements and risk of hyponatremia due to length of TURP. 22Fr [address] hernandez placed introp, on traction and CBI. Reason for Hospital Admission: Pt 77y/o male transferred from [facility] for gross hematuria secondary to recent [...] Diagnosis: Reduced mobility-other Interventions Provided: Gait Training (64622) Gait Training (39771) Treatment Minutes: 23 $ Gait Training (21334) Billed Units: 2 units Training AND Education Provided in: Benefits of In-Hospital Mobility, Bed Mobility, Energy Conservation, Equipment, Exercise Program, Expected Functional Level, Gait Pattern, Reduction of Deviations, Patient Exercise/Therapy Program Support Needs, Positioning, Precautions/Restrictions, Role of Physical Therapy, Standing Balance, (more content not included)... Normal [facility] aPTT PPPon 08-31-2022 aPTT Coag (PPP) [Time] 25.2 s Normal 23.0-32.4 [facility] Comment on above: Order Comment: Speci men Type: BLOOD SPECIMENOrdering Facility: [facility] Address: [address] [place] [address] Performed By: #### 3 4528-0, 91928-7 ####[facility] LABIA [id number] [place] [address] [place] CBC panel Auto (Bld)on 08-30 Erythrocyte distribution width (RBC) [Ratio] 12.7 % Normal 11.5-15.[address] [facility] Comment on above: Order Comment: Speci men Type: BLOOD SPECIMENOrdering Facility: [facility] Address: [address] [place] [address] Performed By: #### 5 8410-2 ####[facility] LABIA [id number] [place] [address] [place] Hematocrit (Bld) [Volume fraction] 30.5 % Low 39.0-51.[address] [facility] Comment on above: Order Comment: Speci men Type: BLOOD SPECIMENOrdering Facility: [facility] Address: [address] [place] [address] Performed By: #### 5 8410-2 ####[facility] LABIA [id number] [place] [address] [place] Hemoglobin (Bld) [Mass/Vol] 10.4 g/dL Low 13.0-17.[address] [facility] Comment on above: Order Comment: Speci men Type: BLOOD SPECIMENOrdering Facility: [facility] Address: [address] [place] [address] Performed By: #### 5 8410-2 ####[facility] LABIA [id number] [address] MCH (RBC) [Entitic mass] 31.7 pg Normal 26.0-34.[address] [facility] Comment on above: Order Comment: Speci men Type: BLOOD SPECIMENOrdering Facility: [facility] Address: [address] [place] [address] Performed By: #### 5 8410-2 ####[facility] LABCLIA [id number] [address] [place] MCHC (RBC) [Mass/Vol] 34.1 g/dL Normal 30.5-36.0 [facility] Comment on above: Order Comment: Speci men Type: BLOOD SPECIMENOrdering Facility: [facility] Address: [address] [place] [address] Performed By: #### 5 8410-2 ####[facility] LABCLIA [id number] [address] [place] MCV (RBC) [Entitic vol] 93.0 fL Normal 80.0-100.0 [facility] Comment on above: Order Comment: Speci men Type: BLOOD SPECIMENOrdering Facility: [facility] Address: [address] [place] [address] Performed By: #### 5 8410-2 ####[facility] LABCLIA [id number] [address] [place] Nucleated RBC (Bld) [#/Vol] 10*3/uL Normal <0.[address] [facility] Comment on above: Order Comment: Speci men Type: BLOOD SPECIMENOrdering Facility: [facility] Address: [address] [place], [place] [address] Performed By: #### 5 8410-2 ####[facility] LABCLIA [id number] [place] [address] [place] Platelet mean volume (Bld) [Entitic vol] 11.6 fL Normal 9.0-12.[address] [facility] Comment on above: Order Comment: Speci men Type: BLOOD SPECIMENOrdering Facility: [facility] Address: [address] [place] [address] Performed By: #### 5 8410-2 ####[facility] LABCLIA [id number] [place] [address] [place] Platelets (Bld) [#/Vol] 192 10*3/uL Normal 150-[address] [facility] Comment on above: Order Comment: Speci men Type: BLOOD SPECIMENOrdering Facility: [facility] Address: [address] [place] [address] Performed By: #### 5 8410-2 ####[facility] LABIA [id number] [place] [address] [place] RBC (Bld) [#/Vol] 3.28 10*6/uL Low 4.20-6.00 [facility] Comment on above: Order Comment: Speci men Type: BLOOD SPECIMENOrdering Facility: [facility] Address: [address] [place] [address] Performed By: #### 5 8410-2 ####[facility] LABIA [id number] [place] [address] [place] WBC (Bld) [#/Vol] 15.06 10*3/uL High 3.70-11.00 [facility] Comment on above: Order Comment: Speci men Type: BLOOD SPECIMENOrdering Facility: [facility] Address: [address] [place], [place] [address] Performed By: #### 5 8410-2 ####[facility] LABIA [id number] [place] [address] [place] Comprehensive metabolic 2000 panelon 08-30-2022 Albumin [Mass/Vol] 3.4 g/dL Low 3.9-4.9 [facility] Comment on above: Order Comment: Speci men Type: BLOOD SPECIMENOrdering Facility: [facility] Address: [address] [place] [address] Performed By: #### 2 4323-8, 53926-4, 2776- ####[facility] LABCLIA [id number] [place] [address] [place] ALP [Catalytic activity/Vol] 105 U/L Normal 38-[address] [facility] Comment on above: Order Comment: Speci men Type: BLOOD SPECIMENOrdering Facility: [facility] Address: [address] [address] Performed By: #### 2 4323-8, 70544-0, 2776- ####[facility] LABCLIA [id number] [place] [address] [place] ALT [Catalytic activity/Vol] 18 U/L Normal 10-[address] [facility] Comment on above: Order Comment: Speci men Type: BLOOD SPECIMENOrdering Facility: [facility] Address: [address] [place] [address] Performed By: #### 2 4323-8, , 2776-02 ####[facility] LABIA [id number] [place] [address] [place] Anion gap [Moles/Vol] 11 mmol/L Normal 9-18 [facility] Comment on above: Order Comment: Speci men Type: BLOOD SPECIMENOrdering Facility: [facility] Address: [address] [place], [place] [address] Performed By: #### 2 4323-8, , 2776-02 ####[facility] LABCLIA [id number] [place] [address] [place] AST [Catalytic activity/Vol] 16 U/L Normal 14-[address] [facility] Comment on above: Order Comment: Speci men Type: BLOOD SPECIMENOrdering Facility: [facility] Address: [address] [place], [place] [address] Performed By: #### 2 4323-8, , 2776-02 ####[facility] LABCLIA [id number] [place] [address] [place] Bilirubin [Mass/Vol] 0.3 mg/dL Normal 0.2-1.3 [facility] Comment on above: Order Comment: Speci men Type: BLOOD SPECIMENOrdering Facility: [facility] Address: [address] [place], [place] [address] Performed By: #### 2 432-8, , 2776-02 ####[facility] LABCLIA [id number] [place] [address] [place] Calcium [Mass/Vol] 8.9 mg/dL Normal 8.5-10.2 [facility] Comment on above: Order Comment: Speci men Type: BLOOD SPECIMENOrdering Facility: [facility] Address: [address] [place] [address] Performed By: #### 2 432-8, , 2776-02 ####[facility] LABCLIA [id number] [place] [address] [place] Chloride [Moles/Vol] 103 mmol/L Normal 97-105 [facility] Comment on above: Order Comment: Speci men Type: BLOOD SPECIMENOrdering Facility: [facility] Address: [address] [place], [place] [address] Performed By: #### 2 432-8, , 2776-02 ####[facility] LABCLIA [id number] [place] [address] [place] CO2 [Moles/Vol] 24 mmol/L Normal 22-[address] [facility] Comment on above: Order Comment: Speci men Type: BLOOD SPECIMENOrdering Facility: [facility] Address: [address] Performed By: #### 2 4323-8, , 2776-02 ####[facility] LABCLIA [id number] [address] [address] [place] Creatinine [Mass/Vol] 0.77 mg/dL Normal 0.73-1.22 [facility] Comment on above: Order Comment: Portia tay Type: BLOOD SPECIMENOrdering Facility: [facility] Address: [address] [address] Performed By: #### 2 4323-8, , 2776-02 ####[facility] LABCLIA [id number] [place] [address] [place] ESTIMATED GLOMERULAR FILTRATION RATE 92 mL/min/1.73m??? Normal >=[address] [facility] Comment on above: Order Comment: Portia tay Type: BLOOD SPECIMENOrdering Facility: [facility] Address: [address] [address] Result Comment: Mariaelena mated Glomerular Filtration Rate [...] #### 2 4323-8, , 2776-02 ####[facility] LABIA [id number] [place] [address] [place] Glucose [Mass/Vol] 124 mg/dL High 74-99 [facility] Comment on above: Order Comment: Portia tay Type: BLOOD SPECIMENOrdering Facility: [facility] Address: [address] [address] Result Comment: The [place] [employer] (ADA) provides guidance for cutoff [...] Standards of Medical Care in Diabetes 2016, [place] [employer]. Diabetes Care. 2016.39(Suppl 1). Performed By: #### 2 4323-8, , 2776-02 ####[facility] LABCLIA [id number] [place] [address] [place] Potassium [Moles/Vol] 3.9 mmol/L Normal 3.7-5.1 [facility] Comment on above: Order Comment: Portia tay Type: BLOOD SPECIMENOrdering Facility: [facility] Address: [address] [place] [address] Performed By: #### 2 4323-8, , 2776-02 ####[facility] LABCLIA [id number] [place] [address] [place] Protein [Mass/Vol] 6.2 g/dL Low 6.3-8.0 [facility] Comment on above: Order Comment: Portia tay Type: BLOOD SPECIMENOrdering Facility: [facility] Address: [address] [place] [address] Performed By: #### 2 4323-8, , 2776-02 ####[facility] LABCLIA [id number] [place] [address] [place] Sodium [Moles/Vol] 138 mmol/L Normal 136-144 [facility] Comment on above: Order Comment: Portia tay Type: BLOOD SPECIMENOrdering Facility: [facility] Address: [address] [place] [address] Performed By: #### 2 4323-8, , 2776-02 ####[facility] LABCLIA [id number] [place] [address] [place] Urea nitrogen [Mass/Vol] 22 mg/dL Normal 9-[address] [facility] Comment on above: Order Comment: Portia tay Type: BLOOD SPECIMENOrdering Facility: [facility] Address: [address] [place] [address] Performed By: #### 2 4323-8, 61694-8, 2777-1 ####[facility] LABCLIA [id number] [place] [address] [place] Magnesium SerPl-mCncon 08-30 Magnesium [Mass/Vol] 2.2 mg/dL Normal 1.7-2.3 [facility] Comment on above: Order Comment: Portia tay Type: BLOOD SPECIMENOrdering Facility: [facility] Address: [address] [place], [place] [address] Performed By: #### 2 4323-8, 03717-8, 2777-1 ####[facility] LABIA [id number] [place] [address] [place] PT panel Coag (PPP)on 2022 INR Coag (PPP) [Relative time] 1.1 {INR} Normal 0.9-1.[address] [facility] Comment on above: Order Comment: Portia tay Type: BLOOD SPECIMENOrdering Facility: [facility] Address: [address] [place] [address] Result Comment: Mago min K Antagonist (VKA) Therapeutic Range: INR 2 to 3 (Target INR of 2.5) Note: For patients treated with VKA drugs, such as warfarin, the [place] [employer] 2012 Guideline recommends [...] Chest 2012, 141:7S-47S Daniel RA, et al. [facility] 2017, 70: 252-289 Performed By: #### 3 4528-0, 97458-2 ####[facility] LABIA [id number] [address] OF [facility] PT Coag (PPP) [Time] 10.9 s Normal 9.7-13.0 [facility] Comment on above: Order Comment: Speci men Type: BLOOD SPECIMENOrdering Facility: [facility] Address: [address] [place] [address] Performed By: #### 3 4528-0, 84110-6 ####[facility] [id number] [address] Phosphate SerPl-mCncon 08-30 Phosphate [Mass/Vol] 3.2 mg/dL Normal 2.7-4.8 [facility] Comment on above: Order Comment: Portia tay Type: BLOOD SPECIMENOrdering Facility: [facility] Address: [address] [place] [address] Performed By: #### 2 4323-8, 61975-8, 2777-1 ####[facility] [id number] [address] THERAPY NTon 08-30-2022 THERAPY NT HNO ID: [id number] Author: Jenna Duggan, PT Service: Physical Therapy Author Type: Physical Therapist Type: Therapy (PT/OT/Speech/Resp) Filed: 08/30/2022 3:12 PM Note Text: Physical Therapy Treatment SERVICE DATE: 08/30/2022 SERVICE TIME: 1337 to 1400 ROOM: [place] [address] Recommended Discharge Disposition: Home Anticipated Discharge Needs: [...] HLD, DM, recent STEMI (08/20/2022), transferred from [facility] for gross hematuria. Currently with 18Fr 3-way catheter on CBI. 08/28/22: s/p cystoscopy, clot evacuation, cystolitholapaxy, TURP. Admitted to SICU postoperatively due to pressor requirements and risk of hyponatremia due to length of TURP. 22Fr [address] hernandez placed introp, on traction and CBI. Reason for Hospital Admission: Pt 77y/o male transferred from [facility] for gross hematuria secondary to recent [...] Diagnosis: Reduced mobility-other Interventions Provided: Therapeutic Activity (95070), Gait Training (89385) Therapeutic Activity (71548) Treatment Minutes: 8 $ Therapeutic Activity (47988) Billed Units: 1 unit Gait Training (59022) Treatment Minutes: 15 $ Gait Training (38800) Billed Units: 1 unit Training AND Education Provided in: Benefits of In-Hospital Mobility, Bed Mobility, Energy Conservation, Equipment, Exercise Program, Expected Functional Level, Gait Pattern, Reduction of Deviations, Patient Exercise/Therapy Program Support Needs, Positioning, Precautions/Restrictions, Role of Physical Therapy, Standing Balance, Treatment Protocol, Transfers The Followin (more content not included)... Normal [facility] TYPE + SCREENon 08-30-2022 ABO O Normal [facility] Comment on above: Order Comment: Speci men Type: BLOOD SPECIMENOrdering Facility: [facility] Address: [address] [place], [place] [address] Performed By: #### T SCR ####CC [facility]IN BLOOD BANKCLIA [id number] [address] [place] HISTORICAL AB SCR STATUS Negative Normal [facility] Comment on above: Order Comment: Speci men Type: BLOOD SPECIMENOrdering Facility: [facility] Address: [address] [place] [address] Performed By: #### T SCR ####[facility] BLOOD BANKCLIA [id number] [address] Rh Nom (Bld) Positive Normal [facility] Comment on above: Order Comment: Speci men Type: BLOOD SPECIMENOrdering Facility: [facility] Address: [address] [place] [address] Performed By: #### T SCR ####[facility] BLOOD BANKIA [id number] [address] TYPE AND SCREEN EXPIRATION 09/02/2022 23:[address] [facility] Comment on above: Order Comment: Speci men Type: BLOOD SPECIMENOrdering Facility: [facility] Address: [address] [place] [address] Performed By: #### T SCR ####[facility] BLOOD BANKIA [id number] [address] [place] aPTT PPPon 08-30-2022 aPTT Coag (PPP) [Time] 26.5 s Normal 23.0-32.4 [facility] Comment on above: Order Comment: Speci men Type: BLOOD SPECIMENOrdering Facility: [facility] Address: [address] [place], [place] [address] Performed By: #### 3 4528-0, 62593-8 ####[facility] LABCLIA [id number] [address] CBC panel Auto (Bld)on 08-29 Erythrocyte distribution width (RBC) [Ratio] 12.5 % Normal 11.5-15.[address] [facility] Comment on above: Order Comment: Speci men Type: BLOOD SPECIMENOrdering Facility: [facility] Address: [address] [place], [place] [address] Performed By: #### 5 8410-2 ####[facility] LABIA [id number] [address] [place] Hematocrit (Bld) [Volume fraction] 30.7 % Low 39.0-51.[address] [facility] Comment on above: Order Comment: Speci men Type: BLOOD SPECIMENOrdering Facility: [facility] Address: [address] [place], [place] [address] Performed By: #### 5 8410-2 ####[facility] LABIA [id number] [place] [address] [place] Hemoglobin (Bld) [Mass/Vol] 10.6 g/dL Low 13.0-17.[address] [facility] Comment on above: Order Comment: Speci men Type: BLOOD SPECIMENOrdering Facility: [facility] Address: [address] [place], [place] [address] Performed By: #### 5 8410-2 ####[facility] [id number] [address] [place] MCH (RBC) [Entitic mass] 32.0 pg Normal 26.0-34.[address] [facility] Comment on above: Order Comment: Speci men Type: BLOOD SPECIMENOrdering Facility: [facility] Address: [address] [place], [place] [address] Performed By: #### 5 8410-2 ####[facility] LABIA [id number] [address] [place] MCHC (RBC) [Mass/Vol] 34.5 g/dL Normal 30.5-36.0 [facility] Comment on above: Order Comment: Speci men Type: BLOOD SPECIMENOrdering Facility: [facility] Address: [address] [place], [place] [address] Performed By: #### 5 8410-2 ####[facility] [id number] [address] [place] MCV (RBC) [Entitic vol] 92.7 fL Normal 80.0-100.0 [facility] Comment on above: Order Comment: Speci men Type: BLOOD SPECIMENOrdering Facility: [facility] Address: [address] [place], [place] [address] Performed By: #### 5 8410-2 ####[facility] LABIA [id number] [place] [address] [place] Nucleated RBC (Bld) [#/Vol] 10*3/uL Normal <0.[address] [facility] Comment on above: Order Comment: Speci men Type: BLOOD SPECIMENOrdering Facility: [facility] Address: [address] [place], [place] [address] Performed By: #### 5 8410-2 ####[facility] LABIA [id number] [place] [address] [place] Platelet mean volume (Bld) [Entitic vol] 11.6 fL Normal 9.0-12.[address] [facility] Comment on above: Order Comment: Speci men Type: BLOOD SPECIMENOrdering Facility: [facility] Address: [address] [place], [place] [address] Performed By: #### 5 8410-2 ####[facility] LABIA [id number] [place] [address] [place] Platelets (Bld) [#/Vol] 159 10*3/uL Normal 150-[address] [facility] Comment on above: Order Comment: Speci men Type: BLOOD SPECIMENOrdering Facility: [facility] Address: [address] [place], [place] [address] Performed By: #### 5 8410-2 ####[facility] LABIA [id number] [place] [address] [place] RBC (Bld) [#/Vol] 3.31 10*6/uL Low 4.20-6.00 [facility] Comment on above: Order Comment: Speci men Type: BLOOD SPECIMENOrdering Facility: [facility] Address: [address] Performed By: #### 5 8410-2 ####[facility] LABCLIA [id number] [place] [address] [place] WBC (Bld) [#/Vol] 13.57 10*3/uL High 3.70-11.00 [facility] Comment on above: Order Comment: Speci men Type: BLOOD SPECIMENOrdering Facility: [facility] Address: [address] Performed By: #### 5 8410-2 ####[facility] LABIA [id number] [place] [address] [place] Erythrocyte distribution width (RBC) [Ratio] 12.5 % Normal 11.5-15.[address] [facility] Comment on above: Order Comment: Speci men Type: BLOOD SPECIMENOrdering Facility: [facility] Address: [address] Performed By: #### 5 8410-2 ####[facility] LABIA [id number] [place] [address] [place] Hematocrit (Bld) [Volume fraction] 25.7 % Low 39.0-51.[address] [facility] Comment on above: Order Comment: Speci men Type: BLOOD SPECIMENOrdering Facility: [facility] Address: [address] Performed By: #### 5 8410-2 ####[facility] LABIA [id number] [place] [address] [place] Hemoglobin (Bld) [Mass/Vol] 9.1 g/dL Low 13.0-17.[address] [facility] Comment on above: Order Comment: Speci men Type: BLOOD SPECIMENOrdering Facility: [facility] Address: [address] Performed By: #### 5 8410-2 ####[facility] LABIA [id number] [address] MCH (RBC) [Entitic mass] 32.4 pg Normal 26.0-34.[address] [facility] Comment on above: Order Comment: Speci men Type: BLOOD SPECIMENOrdering Facility: [facility] Address: [address] Performed By: #### 5 8410-2 ####[facility] [id number] [address] [place] MCHC (RBC) [Mass/Vol] 35.4 g/dL Normal 30.5-36.0 [facility] Comment on above: Order Comment: Speci men Type: BLOOD SPECIMENOrdering Facility: [facility] Address: [address] [place], [place] [address] Performed By: #### 5 8410-2 ####[facility] [id number] [address] [place] MCV (RBC) [Entitic vol] 91.5 fL Normal 80.0-100.0 [facility] Comment on above: Order Comment: Speci men Type: BLOOD SPECIMENOrdering Facility: [facility] Address: [address] [place], [place] [address] Performed By: #### 5 8410-2 ####[facility] LABIA [id number] [address] [place] Nucleated RBC (Bld) [#/Vol] 10*3/uL Normal <0.[address] [facility] Comment on above: Order Comment: Speci men Type: BLOOD SPECIMENOrdering Facility: [facility] Address: [address] [place], [place] [address] Performed By: #### 5 8410-2 ####[facility] LABIA [id number] [place] [address] [place] Platelet mean volume (Bld) [Entitic vol] 11.1 fL Normal 9.0-12.[address] [facility] Comment on above: Order Comment: Speci men Type: BLOOD SPECIMENOrdering Facility: [facility] Address: [address] [place] [address] Performed By: #### 5 8410-2 ####[facility] LABIA [id number] [place] [address] [place] Platelets (Bld) [#/Vol] 138 10*3/uL Low 150-[address] [facility] Comment on above: Order Comment: Speci men Type: BLOOD SPECIMENOrdering Facility: [facility] Address: [address] [place] [address] Result Comment: No c lot detected.Results checked and verified. Performed By: #### 5 8410-2 ####[facility] LABIA [id number] [place] [address] [place] RBC (Bld) [#/Vol] 2.81 10*6/uL Low 4.20-6.00 [facility] Comment on above: Order Comment: Speci men Type: BLOOD SPECIMENOrdering Facility: [facility] Address: [address] [place] [address] Performed By: #### 5 8410-2 ####[facility] LABIA [id number] [place] [address] [place] WBC (Bld) [#/Vol] 11.86 10*3/uL High 3.70-11.00 [facility] Comment on above: Order Comment: Speci men Type: BLOOD SPECIMENOrdering Facility: [facility] Address: [address] [place] [address] Performed By: #### 5 8410-2 ####[facility] LABIA [id number] [place] [address] [place] CNPNon 08-29-2022 CNPN Telephone (UROLMN) ----- ANSELMOOLAF ([id number]) 1945 M Date Time Provider Department 08/29/22 [...] Hematuria [R31.9] 08/27/2022 Coronary artery disease involving solomon hinton*08/27/2022 Adverse reaction to antiplatelet agent [T45.7X5*08/27/2022 Myocardial infarction (HCC) [I21.9] 08/27/2022 Primary hypertension [I10] 08/27/2022 Type 2 diabetes mellitus without complication, *08/27/2022 Leukocytosis [D72.829] 08/27/2022 Malnutrition of mild degree (HCC) [E44.1] 08/29/2022 Encounter Status:Closed by DAVID ANDREWS on 08/29/22 [facility] CONSULT PROGon 08-29-2022 CONSULT PROG HNO ID: [id number] Author: Rodriguez Miller APRN.CHURCH SUPERVISOR Service: Cardiovascular Medicine Author Type: Nurse Practitioner Type: Consult Progress Note Filed: 08/29/2022 11:18 AM Note Text: [facility] CONSULT PROGRESS NOTE (Template ID [id number]) CONSULTING SERVICE: Cardiology: Consult Team PRIMARY SERVICE: [...] 08/29/2022 0700 Gross per 24 hour Intake 12726.5 ml Output 28703 ml Net 5853.5 ml TELEMETRY: SR IMAGING: [...] for comparison. Stent card from [facility] from 08/20/2022 DATA: Laboratory: Recent Labs 08/29/2232208/29/2224108/28/222127 [...] (2000) and TURP (2006) who presented to [facility] (more content not included)... Normal [facility] Comprehensive metabolic 2000 panelon 08-29-2022 Albumin [Mass/Vol] 4.2 g/dL Normal 3.9-4.9 [facility] Comment on above: Order Comment: Speci men Type: BLOOD SPECIMENOrdering Facility: [facility] Address: [address] [place] [address] Performed By: #### 2 4323-8 ####[facility] LABCLIA [id number] [place] [address] [place] ALP [Catalytic activity/Vol] 116 U/L High 38-[address] [facility] Comment on above: Order Comment: Speci men Type: BLOOD SPECIMENOrdering Facility: [facility] Address: [address] [place] [address] Performed By: #### 2 4323-8 ####[facility] LABCLIA [id number] [place] [address] [place] ALT [Catalytic activity/Vol] 20 U/L Normal 10-[address] [facility] Comment on above: Order Comment: Speci men Type: BLOOD SPECIMENOrdering Facility: [facility] Address: [address] [place] [address] Performed By: #### 2 4323-8 ####[facility] LABCLIA [id number] [place] [address] [place] Anion gap [Moles/Vol] 13 mmol/L Normal 9-18 [facility] Comment on above: Order Comment: Speci men Type: BLOOD SPECIMENOrdering Facility: [facility] Address: [address] [place] [address] Performed By: #### 2 4323-8 ####[facility] LABCLIA [id number] [place] [address] [place] AST [Catalytic activity/Vol] 19 U/L Normal 14-[address] [facility] Comment on above: Order Comment: Speci men Type: BLOOD SPECIMENOrdering Facility: [facility] Address: [address] [place] [address] Performed By: #### 2 4323-8 ####[facility] LABCLIA [id number] [place] [address] [place] Bilirubin [Mass/Vol] 0.4 mg/dL Normal 0.2-1.3 [facility] Comment on above: Order Comment: Speci men Type: BLOOD SPECIMENOrdering Facility: [facility] Address: [address] Performed By: #### 2 4323-8 ####[facility] LABCLIA [id number] [place] [address] [place] Calcium [Mass/Vol] 9.4 mg/dL Normal 8.5-10.2 [facility] Comment on above: Order Comment: Speci men Type: BLOOD SPECIMENOrdering Facility: [facility] Address: [address] Performed By: #### 2 4323-8 ####[facility] LABCLIA [id number] [place] [address] [place] Chloride [Moles/Vol] 102 mmol/L Normal 97-105 [facility] Comment on above: Order Comment: Speci men Type: BLOOD SPECIMENOrdering Facility: [facility] Address: [address] Performed By: #### 2 4323-8 ####[facility] LABCLIA [id number] [place] [address] [place] CO2 [Moles/Vol] 25 mmol/L Normal 22-[address] [facility] Comment on above: Order Comment: Speci men Type: BLOOD SPECIMENOrdering Facility: [facility] Address: [address] Performed By: #### 2 4323-8 ####[facility] LABCLIA [id number] [place] [address] [place] Creatinine [Mass/Vol] 0.86 mg/dL Normal 0.73-1.22 [facility] Comment on above: Order Comment: Speci men Type: BLOOD SPECIMENOrdering Facility: [facility] Address: [address] Performed By: #### 2 4323-8 ####[facility] LABCLIA [id number] [place] [id number] [place] ESTIMATED GLOMERULAR FILTRATION RATE 89 mL/min/1.73m??? Normal >=[address] [facility] Comment on above: Order Comment: Portia tay Type: BLOOD SPECIMENOrdering Facility: [facility] Address: [address] [place] [address] Result Comment: Mariaelena mated Glomerular Filtration Rate [...] Performed By: #### 2 4323-8 ####[facility] LABCLIA [id number] [place] [address] [place] Glucose [Mass/Vol] 166 mg/dL High 74-99 [facility] Comment on above: Order Comment: Portia tay Type: BLOOD SPECIMENOrdering Facility: [facility] Address: [address] [place] [address] Result Comment: The [place] [employer] (ADA) provides guidance for cutoff [...] Standards of Medical Care in Diabetes 2016, [place] [employer]. Diabetes Care. 2016.39(Suppl 1). Performed By: #### 2 4323-8 ####[facility] LABCLIA [id number] [place] [address] [place] Potassium [Moles/Vol] 3.9 mmol/L Normal 3.7-5.1 [facility] Comment on above: Order Comment: Speci men Type: BLOOD SPECIMENOrdering Facility: [facility] Address: [address] Performed By: #### 2 4323-8 ####[facility] LABCLIA [id number] [place] [address] [place] Protein [Mass/Vol] 6.6 g/dL Normal 6.3-8.0 [facility] Comment on above: Order Comment: Speci men Type: BLOOD SPECIMENOrdering Facility: [facility] Address: [address] Performed By: #### 2 4323-8 ####[facility] LABCLIA [id number] [place] [address] [place] Sodium [Moles/Vol] 140 mmol/L Normal 136-144 [facility] Comment on above: Order Comment: Speci men Type: BLOOD SPECIMENOrdering Facility: [facility] Address: [address] Performed By: #### 2 4323-8 ####[facility] LABCLIA [id number] [place] [address] [place] Urea nitrogen [Mass/Vol] 21 mg/dL Normal 9-[address] [facility] Comment on above: Order Comment: Speci men Type: BLOOD SPECIMENOrdering Facility: [facility] Address: [address] Performed By: #### 2 4323-8 ####[facility] LABCLIA [id number] [place] [address] [place] Albumin [Mass/Vol] 3.6 g/dL Low 3.9-4.9 [facility] Comment on above: Order Comment: Speci men Type: BLOOD SPECIMENOrdering Facility: [facility] Address: [address] Performed By: #### 2 4323-8 ####[facility] LABCLIA [id number] [place] [address] [place] ALP [Catalytic activity/Vol] 96 U/L Normal 38-[address] [facility] Comment on above: Order Comment: Speci men Type: BLOOD SPECIMENOrdering Facility: [facility] Address: [address] [place] [address] Performed By: #### 2 4323-8 ####[facility] LABCLIA [id number] [place] [address] [place] ALT [Catalytic activity/Vol] 18 U/L Normal 10-[address] [facility] Comment on above: Order Comment: Speci men Type: BLOOD SPECIMENOrdering Facility: [facility] Address: [address] [place] [address] Performed By: #### 2 4323-8 ####[facility] LABCLIA [id number] [place] [address] [place] Anion gap [Moles/Vol] 10 mmol/L Normal 9-18 [facility] Comment on above: Order Comment: Speci men Type: BLOOD SPECIMENOrdering Facility: [facility] Address: [address] [place] [address] Performed By: #### 2 4323-8 ####[facility] LABCLIA [id number] [place] [address] [place] AST [Catalytic activity/Vol] 16 U/L Normal 14-[address] [facility] Comment on above: Order Comment: Speci men Type: BLOOD SPECIMENOrdering Facility: [facility] Address: [address] [place] [address] Performed By: #### 2 4323-8 ####[facility] LABCLIA [id number] [place] [address] [place] Bilirubin [Mass/Vol] 0.5 mg/dL Normal 0.2-1.3 [facility] Comment on above: Order Comment: Speci men Type: BLOOD SPECIMENOrdering Facility: [facility] Address: [address] Performed By: #### 2 4323-8 ####[facility] LABCLIA [id number] [place] [address] [place] Calcium [Mass/Vol] 8.7 mg/dL Normal 8.5-10.2 [facility] Comment on above: Order Comment: Speci men Type: BLOOD SPECIMENOrdering Facility: [facility] Address: [address] Performed By: #### 2 4323-8 ####[facility] LABCLIA [id number] [place] [address] [place] Chloride [Moles/Vol] 105 mmol/L Normal 97-105 [facility] Comment on above: Order Comment: Speci men Type: BLOOD SPECIMENOrdering Facility: [facility] Address: [address] Performed By: #### 2 4323-8 ####[facility] LABCLIA [id number] [place] [address] [place] CO2 [Moles/Vol] 24 mmol/L Normal 22-[address] [facility] Comment on above: Order Comment: Speci men Type: BLOOD SPECIMENOrdering Facility: [facility] Address: [address] Performed By: #### 2 4323-8 ####[facility] LABCLIA [id number] [place] [address] [place] Creatinine [Mass/Vol] 0.78 mg/dL Normal 0.73-1.22 [facility] Comment on above: Order Comment: Speci men Type: BLOOD SPECIMENOrdering Facility: [facility] Address: [address] Performed By: #### 2 4323-8 ####[facility] LABCLIA [id number] [place] [address] [place] ESTIMATED GLOMERULAR FILTRATION RATE 92 mL/min/1.73m??? Normal >=[address] [facility] Comment on above: Order Comment: Portia tay Type: BLOOD SPECIMENOrdering Facility: [facility] Address: [address] [place] [address] Result Comment: Mariaelena mated Glomerular Filtration Rate [...] Performed By: #### 2 4323-8 ####[facility] LABIA [id number] [place] [address] [place] Glucose [Mass/Vol] 217 mg/dL High 74-99 [facility] Comment on above: Order Comment: Portia tay Type: BLOOD SPECIMENOrdering Facility: [facility] Address: [address] [place] [address] Result Comment: The [place] Diabetes [employer] (ADA) provides guidance for cutoff [...] Standards of Medical Care in Diabetes 2016, [place] [employer]. Diabetes Care. 2016.39(Suppl 1). Performed By: #### 2 4323-8 ####[facility] LABIA [id number] [place] [address] [place] Potassium [Moles/Vol] 3.9 mmol/L Normal 3.7-5.1 [facility] Comment on above: Order Comment: Speci men Type: BLOOD SPECIMENOrdering Facility: [facility] Address: [address] Performed By: #### 2 4323-8 ####[facility] LABCLIA [id number] [place] [address] [place] Protein [Mass/Vol] 5.6 g/dL Low 6.3-8.0 [facility] Comment on above: Order Comment: Speci men Type: BLOOD SPECIMENOrdering Facility: [facility] Address: [address] [place] [address] Performed By: #### 2 4323-8 ####[facility] LABCLIA [id number] [place] [address] [place] Sodium [Moles/Vol] 139 mmol/L Normal 136-144 [facility] Comment on above: Order Comment: Speci men Type: BLOOD SPECIMENOrdering Facility: [facility] Address: [address] [place] [address] Performed By: #### 2 4323-8 ####[facility] LABCLIA [id number] [place] [address] [place] Urea nitrogen [Mass/Vol] 14 mg/dL Normal 9-[address] [facility] Comment on above: Order Comment: Speci men Type: BLOOD SPECIMENOrdering Facility: [facility] Address: [address] Performed By: #### 2 4323-8 ####[facility] LABCLIA [id number] [place] [address] [place] Albumin [Mass/Vol] 3.6 g/dL Low 3.9-4.9 [facility] Comment on above: Order Comment: Speci men Type: BLOOD SPECIMENOrdering Facility: [facility] Address: [address] [place], [place] [address] Performed By: #### 2 777-1, 56847-2, ####[facility] LABCLIA [id number] [place] [address] [place] ALP [Catalytic activity/Vol] 98 U/L Normal 38-[address] [facility] Comment on above: Order Comment: Speci men Type: BLOOD SPECIMENOrdering Facility: [facility] Address: [address] Performed By: #### 2 777-1, 04090-0, ####[facility] LABCLIA [id number] [place] [address] [place] ALT [Catalytic activity/Vol] 19 U/L Normal 10-[address] [facility] Comment on above: Order Comment: Speci men Type: BLOOD SPECIMENOrdering Facility: [facility] Address: [address] Performed By: #### 2 777-1, , ####[facility] LABCLIA [id number] [place] [address] [place] Anion gap [Moles/Vol] 12 mmol/L Normal 9-18 [facility] Comment on above: Order Comment: Speci men Type: BLOOD SPECIMENOrdering Facility: [facility] Address: [address] [place] [address] Performed By: #### 2 777-1, 34227-1, ####[facility] LABIA [id number] [place] [id number] [place] AST [Catalytic activity/Vol] 18 U/L Normal 14-[address] [facility] Comment on above: Order Comment: Speci men Type: BLOOD SPECIMENOrdering Facility: [facility] Address: [address] Performed By: #### 2 777-1, 69589-3, ####[facility] LABCLIA [id number] [place] [address] [place] Bilirubin [Mass/Vol] 0.7 mg/dL Normal 0.2-1.3 [facility] Comment on above: Order Comment: Speci men Type: BLOOD SPECIMENOrdering Facility: [facility] Address: [address] Performed By: #### 2 777-1, , ####[facility] LABCLIA [id number] [place] [address] [place] Calcium [Mass/Vol] 8.3 mg/dL Low 8.5-10.2 [facility] Comment on above: Order Comment: Speci men Type: BLOOD SPECIMENOrdering Facility: [facility] Address: [address] [place], [place] [address] Performed By: #### 2 777-1, , ####[facility] LABCLIA [id number] [place] [address] [place] Chloride [Moles/Vol] 102 mmol/L Normal 97-105 [facility] Comment on above: Order Comment: Speci men Type: BLOOD SPECIMENOrdering Facility: [facility] Address: [address] [place] [address] Performed By: #### 2 777-1, , ####[facility] LABCLIA [id number] [place] [id number] [place] CO2 [Moles/Vol] 22 mmol/L Normal 22-[address] [facility] Comment on above: Order Comment: Speci men Type: BLOOD SPECIMENOrdering Facility: [facility] Address: [address] [place] [address] Performed By: #### 2 777-1, , ####[facility] LABCLIA [id number] [place] [address] [place] Creatinine [Mass/Vol] 0.69 mg/dL Low 0.73-1.22 [facility] Comment on above: Order Comment: Portia tay Type: BLOOD SPECIMENOrdering Facility: [facility] Address: [address] [place] [address] Performed By: #### 2 777-1, , ####[facility] LABIA [id number] [place] [address] [place] ESTIMATED GLOMERULAR FILTRATION RATE 95 mL/min/1.73m??? Normal >=[address] [facility] Comment on above: Order Comment: Portia tay Type: BLOOD SPECIMENOrdering Facility: [facility] Address: [address] [place] [address] Result Comment: Mariaelena mated Glomerular Filtration Rate [...] By: #### 2 777-1, , ####[facility] LABIA [id number] [place] [address] [place] Glucose [Mass/Vol] 202 mg/dL High 74-99 [facility] Comment on above: Order Comment: Portia tay Type: BLOOD SPECIMENOrdering Facility: [facility] Address: [address] [place] [address] Result Comment: The [place] Diabetes [employer] (ADA) provides guidance for cutoff [...] Standards of Medical Care in Diabetes 2016, [place] [employer]. Diabetes Care. 2016.39(Suppl 1). Performed By: #### 2 777-1, 63511-0, ####[facility] LABCLIA [id number] [place] [address] [place] Potassium [Moles/Vol] 4.1 mmol/L Normal 3.7-5.1 [facility] Comment on above: Order Comment: Speci men Type: BLOOD SPECIMENOrdering Facility: [facility] Address: [address] [place] [address] Performed By: #### 2 777-1, , ####[facility] LABCLIA [id number] [place] [address] [place] Protein [Mass/Vol] 5.5 g/dL Low 6.3-8.0 [facility] Comment on above: Order Comment: Speci men Type: BLOOD SPECIMENOrdering Facility: [facility] Address: [address] Performed By: #### 2 777-1, , ####[facility] LABCLIA [id number] [place] [address] [place] Sodium [Moles/Vol] 136 mmol/L Normal 136-144 [facility] Comment on above: Order Comment: Speci men Type: BLOOD SPECIMENOrdering Facility: [facility] Address: [address] [place] [address] Performed By: #### 2 777-1, , ####[facility] LABCLIA [id number] [place] [id number] [place] Urea nitrogen [Mass/Vol] 14 mg/dL Normal 9-[address] [facility] Comment on above: Order Comment: Speci men Type: BLOOD SPECIMENOrdering Facility: [facility] Address: [address] [place], [place] [address] Performed By: #### 2 777-1, 53478-3, 70693-2 ####[facility] LABCLIA [id number] [place] [address] [place] Albumin [Mass/Vol] 3.0 g/dL Low 3.9-4.9 [facility] Comment on above: Order Comment: Speci men Type: BLOOD SPECIMENOrdering Facility: [facility] Address: [address] [place], [place] [address] Result Comment: Resu lt rechecked. Performed By: #### 1 9123-9, 2777-1, 35658-0 ####[facility] LABCLIA [id number] [place] [address] [place] ALP [Catalytic activity/Vol] 88 U/L Normal 38-[address] [facility] Comment on above: Order Comment: Speci men Type: BLOOD SPECIMENOrdering Facility: [facility] Address: [address] [place] [address] Performed By: #### 1 9123-9, 2777-1, 33396-1 ####[facility] LABCLIA [id number] [place] [address] [place] ALT [Catalytic activity/Vol] 15 U/L Normal 10-[address] [facility] Comment on above: Order Comment: Speci men Type: BLOOD SPECIMENOrdering Facility: [facility] Address: [address] [place], [place] [address] Performed By: #### 1 9123-9, 277-1, 47716-9 ####[facility] LABCLIA [id number] [place] [id number] [place] Anion gap [Moles/Vol] 14 mmol/L Normal 9-18 [facility] Comment on above: Order Comment: Speci men Type: BLOOD SPECIMENOrdering Facility: [facility] Address: [address] [place], [place] [address] Performed By: #### 1 9123-9, 2776-02, ####[facility] LABCLIA [id number] [place] [address] [place] AST [Catalytic activity/Vol] 16 U/L Normal 14-[address] [facility] Comment on above: Order Comment: Speci men Type: BLOOD SPECIMENOrdering Facility: [facility] Address: [address] [place], [place] [address] Performed By: #### 1 9123-9, 2776-02, ####[facility] LABCLIA [id number] [place] [address] [place] Bilirubin [Mass/Vol] 0.6 mg/dL Normal 0.2-1.3 [facility] Comment on above: Order Comment: Speci men Type: BLOOD SPECIMENOrdering Facility: [facility] Address: [address] [place], [place] [address] Performed By: #### 1 9123-9, 2776-02, ####[facility] LABCLIA [id number] [place] [address] [place] Calcium [Mass/Vol] 8.4 mg/dL Low 8.5-10.2 [facility] Comment on above: Order Comment: Speci men Type: BLOOD SPECIMENOrdering Facility: [facility] Address: [address] [place], [place] [address] Performed By: #### 1 9123-9, 2776-02, ####[facility] LABCLIA [id number] [place] [address] [place] Chloride [Moles/Vol] 103 mmol/L Normal 97-105 [facility] Comment on above: Order Comment: Speci men Type: BLOOD SPECIMENOrdering Facility: [facility] Address: [address] [place] [address] Performed By: #### 1 9123-9, 27708-18, ####[facility] LABCLIA [id number] [place] [address] [place] CO2 [Moles/Vol] 20 mmol/L Low 22-[address] [facility] Comment on above: Order Comment: Speci men Type: BLOOD SPECIMENOrdering Facility: [facility] Address: [address] [place] [address] Performed By: #### 1 9123-9, 2776-02, ####[facility] LABCLIA [id number] [place] [address] [place] Creatinine [Mass/Vol] 0.64 mg/dL Low 0.73-1.22 [facility] Comment on above: Order Comment: Speci men Type: BLOOD SPECIMENOrdering Facility: [facility] Address: [address] [place] [address] Performed By: #### 1 9123-9, 2776-02, ####[facility] LABCLIA [id number] [place] [address] [place] ESTIMATED GLOMERULAR FILTRATION RATE 98 mL/min/1.73m??? Normal >=[address] [facility] Comment on above: Order Comment: Speci men Type: BLOOD SPECIMENOrdering Facility: [facility] Address: [address] [place] [address] Result Comment: Mariaelena mated Glomerular Filtration Rate [...] GFR. Performed By: #### 1 9123-9, 27708-18, 90927-0 ####[facility] LABCLIA [id number] [place] [address] [place] Glucose [Mass/Vol] 186 mg/dL High 74-99 [facility] Comment on above: Order Comment: Speci men Type: BLOOD SPECIMENOrdering Facility: [facility] Address: [address] [place] [address] Result Comment: The [place] Diabetes [employer] (ADA) provides guidance for cutoff [...] Standards of Medical Care in Diabetes 2016, [place] [employer]. Diabetes Care. 2016.39(Suppl 1). Performed By: #### 1 9123-9, 2777-, 38975-4 ####[facility] LABIA [id number] [place] [address] [place] Potassium [Moles/Vol] 4.0 mmol/L Normal 3.7-5.1 [facility] Comment on above: Order Comment: Janiei men Type: BLOOD SPECIMENOrdering Facility: [facility] Address: [address] [place] [address] Performed By: #### 1 9123-9, 2777-, 29709-2 ####[facility] LABIA [id number] [place] [address] [place] Protein [Mass/Vol] 5.1 g/dL Low 6.3-8.0 [facility] Comment on above: Order Comment: Speci men Type: BLOOD SPECIMENOrdering Facility: [facility] Address: [address] [place] [address] Performed By: #### 1 9123-9, 2777-1, 10296-0 ####[facility] LABCLIA [id number] [address] [address] [place] Sodium [Moles/Vol] 137 mmol/L Normal 136-144 [facility] Comment on above: Order Comment: Speci men Type: BLOOD SPECIMENOrdering Facility: [facility] Address: [address] [place] [address] [place] [address] Performed By: #### 1 9123-9, 2777-1, 30263-8 ####[facility] LABIA [id number] [place] [address] [place] Urea nitrogen [Mass/Vol] 12 mg/dL Normal 9-[address] [facility] Comment on above: Order Comment: Speci men Type: BLOOD SPECIMENOrdering Facility: [facility] Address: [facility] [place] [address] Performed By: #### 1 9123-9, 2777-1, 46726-2 ####[facility] LABIA [id number] [place] [address] [place] ECG COMPLETEon 08-29-2022 ECG COMPLETE Ventricular Rate : 7 0 BPM Atrial Rate : 70 BPM P-R Interval : 186 ms QRS Duration : 102 ms Q-T Interval : 454 ms QTC Calculation(Bazett) : 490 ms Calculated P Murdo : 44 degrees Calculated R Murdo : -26 degrees Calculated T Murdo : -27 degrees SINUS RHYTHM WITH PREMATURE ATRIAL COMPLEXES NONSPECIFIC ST ABNORMALITY ABNORMAL ECG Confirmed by ERICK STEWARD MD ([id number]) on 08/31/2022 7:45:00 AM NAME : OLAF BRIONES PID : [id number] : 1945 Gender : Male Race : Unknown ORD : [id number] Procedure Date : Aug 29 2022 00:07:53 [...] by : NAHOMI RINALDI [facility] Magnesium SerPl-mCncon 08-29 Magnesium [Mass/Vol] 2.1 mg/dL Normal 1.7-2.3 [facility] Comment on above: Order Comment: Portia tay Type: BLOOD SPECIMENOrdering Facility: [facility] Address: [address] [place] [address] Performed By: #### 2 777-1, 30606-8, 52955-9 ####[facility] [id number] [place] [address] [place] Magnesium [Mass/Vol] 1.8 mg/dL Normal 1.7-2.3 [facility] Comment on above: Order Comment: Portia tay Type: BLOOD SPECIMENOrdering Facility: [facility] Address: [address] [place] [address] Performed By: #### 1 9123-9, 2777-1, 77035-5 ####[facility] [id number] [address] [place] PT panel Coag (PPP)on 2022 INR Coag (PPP) [Relative time] 1.0 {INR} Normal 0.9-1.[address] [facility] Comment on above: Order Comment: Portia tay Type: BLOOD SPECIMENOrdering Facility: [facility] Address: [address] [place] [address] Result Comment: Mago min K Antagonist (VKA) Therapeutic Range: INR 2 to 3 (Target INR of 2.5) Note: For patients treated with VKA drugs, such as warfarin, the [place] [employer] 2012 Guideline recommends [...] Chest 2012, 141:7S-47S Daniel RA, et al. [facility] 2017, 70: 252-289 Performed By: #### 3 4528-0, 88826-1 ####[facility] LABCLIA [id number] [place] [address] [place] PT Coag (PPP) [Time] 10.7 s Normal 9.7-13.0 [facility] Comment on above: Order Comment: Speci men Type: BLOOD SPECIMENOrdering Facility: [facility] Address: [address] [place] [address] Performed By: #### 3 4528-0, 32373-6 ####[facility] LABIA [id number] [place] [address] [place] INR Coag (PPP) [Relative time] 1.1 {INR} Normal 0.9-1.[address] [facility] Comment on above: Order Comment: Speci men Type: BLOOD SPECIMENOrdering Facility: [facility] Address: [address] [place] [address] Result Comment: Mago min K Antagonist (VKA) Therapeutic Range: INR 2 to 3 (Target INR of 2.5) Note: For patients treated with VKA drugs, such as warfarin, the [place] [employer] 2012 Guideline recommends [...] Chest 2012, 141:7S-47S Daniel RA, et al. [facility] 2017, 70: 252-289 Performed By: #### 3 4528-0, 77098-0 ####[facility] LABCLIA [id number] [address] [place] PT Coag (PPP) [Time] 11.2 s Normal 9.7-13.0 [facility] Comment on above: Order Comment: Speci men Type: BLOOD SPECIMENOrdering Facility: [facility] Address: [address] [place] [address] Performed By: #### 3 4528-0, 37791-1 ####[facility] LABIA [id number] [address] [place] Phosphate SerPl-mCncon 08-29 Phosphate [Mass/Vol] 4.9 mg/dL High 2.7-4.8 [facility] Comment on above: Order Comment: Speci men Type: BLOOD SPECIMENOrdering Facility: [facility] Address: [address] [place] [address] Performed By: #### 2 777-1, 65805-7, 66593-2 ####[facility] LABIA [id number] [address] STATES OF [facility] Phosphate [Mass/Vol] 4.2 mg/dL Normal 2.7-4.8 [facility] Comment on above: Order Comment: Speci men Type: BLOOD SPECIMENOrdering Facility: [facility] Address: [address] [place] [address] Performed By: #### 1 9123-9, 2777-1, 87774-9 ####[facility] LABCLIA [id number] [place] [id number] [place] THERAPY NTon 08-29-2022 THERAPY NT HNO ID: [id number] Author: Jenna Duggan, PT Service: Physical Therapy Author Type: Physical Therapist Type: Therapy (PT/OT/Speech/Resp) Filed: 08/29/2022 2:51 PM Note Text: Physical Therapy Evaluation SERVICE DATE: 08/29/2022 SERVICE TIME: 1403 to 1438 ROOM: [place] [address] Recommended Discharge Disposition: Home Anticipated Discharge Needs: [...] HLD, DM, recent STEMI (08/20/2022), transferred from [facility] for gross hematuria. Currently with 18Fr 3-way catheter on CBI. 08/28/22: s/p cystoscopy, clot evacuation, cystolitholapaxy, TURP. Admitted to SICU postoperatively due to pressor requirements and risk of hyponatremia due to length of TURP. 22Fr [address] hernandez placed introp, on traction and CBI. Reason for Hospital Admission: Pt 77y/o male transferred from [facility] for gross hematuria secondary to recent [...] Reduced mobility-other Interventions Provided: Evaluation, Therapeutic Activity (21564), Gait Training (20078) $ Evaluation-Moderate (21451) Billed Units: 1 unit Therapeutic Activity (19921) Treatment Minutes: 7 $ Therapeutic Activity (60614) Billed Units: 0 units Gait Training (82180) Treatment Minutes: 13 $ Gait Training (83366) Billed Units: 1 unit Training AND Education Provided in: Benefits of In-Hospital Mobility, Bed Mobility, Energy Conservation, Equipment, Exer (more content not included)... Normal [facility] THERAPY NT HNO ID: [id number] Author: Alia Smith, DANYELLR/Cherry Service: Occupational Therapy Author Type: Occupational Therapist Type: Therapy (PT/OT/Speech/Resp) Filed: 08/29/2022 11:06 AM Note Text: Occupational Therapy Evaluation SERVICE DATE: 08/29/2022 SERVICE TIME: 849 to 920 ROOM: [place] [address] Recommended Discharge Disposition: Home Anticipated Discharge Needs: [...] HLD, DM, recent STEMI (08/20/2022), transferred from [facility] for gross hematuria. Currently with 18Fr 3-way catheter on CBI. 08/28/22: s/p cystoscopy, clot evacuation, cystolitholapaxy, TURP. Admitted to SICU postoperatively due to pressor requirements and risk of hyponatremia due to length of TURP. 22Fr [address] hernandez placed introp, on traction and CBI. 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 Normal [facility] aPTT PPPon 08-29-2022 aPTT Coag (PPP) [Time] 21.0 s Low 23.0-32.4 [facility] Comment on above: Order Comment: Speci men Type: BLOOD SPECIMENOrdering Facility: [facility] Address: [address] [place] [address] Performed By: #### 3 4528-0, 07414-6 ####[facility] LABCLIA [id number] [address] STATES OF [facility] aPTT Coag (PPP) [Time] 26.1 s Normal 23.0-32.4 [facility] Comment on above: Order Comment: Speci men Type: BLOOD SPECIMENOrdering Facility: [facility] Address: [address] [place] [address] Performed By: #### 3 4528-0, 24238-4 ####[facility] LABCLIA [id number] [place] [address] [place] ANES POSTPROC EVALon 023 ANES POSTPROC EVAL HNO ID: [id number] Author: Michelle Day MD Service: ? Author Type: Anesthesiologist Type: Anesthesia Postprocedure Evaluation Filed: 08/28/2022 8:38 PM Note Text: POST ANESTHESIA EVALUATION NOTE : 1945 Procedure Summary Date: 08/28/22 Room / Location: [address] Anesthesia Start: 1752 Anesthesia Stop: 2030 Procedure: CYSTOURETHROSCOPY FULGURATION BLADDER (Bladder) Diagnosis: Hematuria (Hematuria [R31.9]) Surgeons: David Andrews MD Responsible Provider: Weston Aivla MD Anesthesia Type: general ASA Status: 4 [...] August 28, 2022 TIME: 8:37 PM CSN: [id number] Normal [facility] ANES PRE-OPon 08-28-2022 ANES PRE-OP HNO ID: [id number] Author: Weston Avila MD Service: ? 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 Normal [facility] ANES PREOPon 08-28-2022 ANES PREOP HNO ID: [id number] Author: Jaycee Bernard MD Service: Anesthesiology Author [...] (166 lb 7.2 oz) REVIEW OF SYSTEMS: CLINICAL PROGRAM DIRECTOR: no history of CLINICAL PROGRAM DIRECTOR disease RESP: no history of pulmonary disease, no smoking history CARD: history of HTN on norvasc and coreg; and history of past DE s/p JUHI (08/20/22); currently no chest pain [...] content not included)... Normal [facility] BRIEF OP NOTon 08-28-2022 BRIEF OP NOT HNO ID: [id number] Author: Gt Mcgowan MD Service: Urology Author Type: Resident Type: Brief Op Note Filed: 08/28/2022 7:50 PM Note Text: BRIEF OP NOTE LOG ID: [id number] Surgery/Procedure Date: 08/28/2022 Incision/Procedure Start Time: 6:17 PM Incision Close/Procedure End Time: Surgeon(s)/Proceduralist( s) and Taxi Cab Driver(s): Surgeon(s) and Role: * David Andrews MD [...] 2022 TIME: 7:48 PM PAGER/CONTACT #: [phone] Post-op Plan: To SICU Normal [facility] Basic metabolic 2000 panelon 08-28-2022 Anion gap [Moles/Vol] 9 mmol/L Normal 9-18 [facility] Comment on above: Order Comment: Speci men Type: BLOOD SPECIMENOrdering Facility: [facility] Address: [address] [place] [address] Performed By: #### 2 4321-2 ####[facility] LABCLIA [id number] [place] [address] [place] Calcium [Mass/Vol] 8.8 mg/dL Normal 8.5-10.2 [facility] Comment on above: Order Comment: Speci men Type: BLOOD SPECIMENOrdering Facility: [facility] Address: [address] [place] [address] Performed By: #### 2 4321-2 ####[facility] LABCLIA [id number] [place] [address] [place] Chloride [Moles/Vol] 108 mmol/L High 97-105 [facility] Comment on above: Order Comment: Speci men Type: BLOOD SPECIMENOrdering Facility: [facility] Address: [address] [place] [address] Performed By: #### 2 4321-2 ####[facility] LABCLIA [id number] [place] [address] [place] CO2 [Moles/Vol] 24 mmol/L Normal 22-[address] [facility] Comment on above: Order Comment: Speci men Type: BLOOD SPECIMENOrdering Facility: [facility] Address: [address] Performed By: #### 2 4321-2 ####[facility] LABCLIA [id number] [place] [address] [place] Creatinine [Mass/Vol] 0.79 mg/dL Normal 0.73-1.22 [facility] Comment on above: Order Comment: Speci men Type: BLOOD SPECIMENOrdering Facility: [facility] Address: [address] [place] [address] Performed By: #### 2 4321-2 ####[facility] LABCLIA [id number] [place] [address] [place] ESTIMATED GLOMERULAR FILTRATION RATE 91 mL/min/1.73m??? Normal >=[address] [facility] Comment on above: Order Comment: Portia tay Type: BLOOD SPECIMENOrdering Facility: [facility] Address: [address] [place] [address] Result Comment: Mariaelena mated Glomerular Filtration Rate [...] Performed By: #### 2 4321-2 ####[facility] LABCLIA [id number] [place] [address] [place] Glucose [Mass/Vol] 137 mg/dL High 74-99 [facility] Comment on above: Order Comment: Portia tay Type: BLOOD SPECIMENOrdering Facility: [facility] Address: [address] [place] [address] Result Comment: The [place] Diabetes Association (ADA) provides guidance for cutoff [...] Standards of Medical Care in Diabetes 2016, [place] [employer]. Diabetes Care. 2016.39(Suppl 1). Performed By: #### 2 4321-2 ####[facility] LABCLIA [id number] [place] [address] [place] Potassium [Moles/Vol] 4.0 mmol/L Normal 3.7-5.1 [facility] Comment on above: Order Comment: Speci men Type: BLOOD SPECIMENOrdering Facility: [facility] Address: [address] [place] [address] Performed By: #### 2 4321-2 ####[facility] LABCLIA [id number] [address] [place] Sodium [Moles/Vol] 141 mmol/L Normal 136-144 [facility] Comment on above: Order Comment: Speci men Type: BLOOD SPECIMENOrdering Facility: [facility] Address: [address] [place] [address] Performed By: #### 2 4321-2 ####[facility] LABIA [id number] [address] [place] Urea nitrogen [Mass/Vol] 18 mg/dL Normal 9-[address] [facility] Comment on above: Order Comment: Speci men Type: BLOOD SPECIMENOrdering Facility: [facility] Address: [address] [place] [address] Performed By: #### 2 4321-2 ####[facility] LABIA [id number] [address] CALCULI ANALYSISon 3 Calculus analysis [Interp] Normal [facility] Comment on above: Order Comment: Speci men Type: CALCULUS SPECIMENOrdering Facility: [facility] Address: [address] [place] [address] Result Comment: This test was developed and its performance characteristics determined by [facility]'s Olaf JAltagracia [facility] Pathology and Laboratory Medicine [place] ([facility]). It has not been cleared or approved by the FDA. RT-PL[facility] is regulated under CLIA as qualified to perform high-complexity testing. This test is used for clinical purposes. It should not be regarded as investigational or for research. Performed By: #### C SA ####[facility] LABCLIA [id number] [address] [place] CALCULUS COLOR BROWN Normal [facility] Comment on above: Order Comment: Speci men Type: CALCULUS SPECIMENOrdering Facility: [facility] Address: [address] [place] [address] Performed By: #### C SA ####[facility] LABCLIA [id number] [address] [place] CALCULUS COMPOSITION 1 50% Calcium Oxala te Monohydrate Normal [facility] Comment on above: Order Comment: Speci men Type: CALCULUS SPECIMENOrdering Facility: [facility] Address: [address] [place] [address] Performed By: #### C SA ####[facility] LABIA [id number] [address] CALCULUS COMPOSITION 2 40% Calcium Oxala te Dihydrate Normal [facility] Comment on above: Order Comment: Speci men Type: CALCULUS SPECIMENOrdering Facility: [facility] Address: [address] [place] [address] Performed By: #### C SA ####[facility] LABIA [id number] [address] CALCULUS COMPOSITION 3 10% Minor Components Normal [facility] Comment on above: Order Comment: Speci men Type: CALCULUS SPECIMENOrdering Facility: [facility] Address: [address] [place], [place] [address] Performed By: #### C SA ####[facility] LABCLIA [id number] [address] [place] CALCULUS SIZE AND WT 0.4 X 0.3 X 0.1 CM 0.0163 GRAMS Normal [facility] Comment on above: Order Comment: Speci men Type: CALCULUS SPECIMENOrdering Facility: [facility] Address: [address] [place] [address] Performed By: #### C SA ####[facility] LABCLIA [id number] [address] [place] CALCULUS TYPE Calculus, CALCULI/CALCULUS Normal [facility] Comment on above: Order Comment: Speci men Type: CALCULUS SPECIMENOrdering Facility: [facility] Address: [address] [place] [address] Performed By: #### C SA ####[facility] LABCLIA [id number] [address] [place] CBC panel Auto (Bld)on 08-28 Erythrocyte distribution width (RBC) [Ratio] 12.7 % Normal 11.5-15.[address] [facility] Comment on above: Order Comment: Speci men Type: BLOOD SPECIMENOrdering Facility: [facility] Address: [address] [place] [address] Performed By: #### 5 8410-2 ####[facility] LABIA [id number] [address] [place] Hematocrit (Bld) [Volume fraction] 35.7 % Low 39.0-51.[address] [facility] Comment on above: Order Comment: Speci men Type: BLOOD SPECIMENOrdering Facility: [facility] Address: [address] [place] [address] Performed By: #### 5 8410-2 ####[facility] LABCLIA [id number] [address] [place] Hemoglobin (Bld) [Mass/Vol] 12.1 g/dL Low 13.0-17.[address] [facility] Comment on above: Order Comment: Speci men Type: BLOOD SPECIMENOrdering Facility: [facility] Address: [address] [place] [address] Performed By: #### 5 8410-2 ####[facility] LABCLIA [id number] [place] [address] [place] MCH (RBC) [Entitic mass] 31.8 pg Normal 26.0-34.[address] [facility] Comment on above: Order Comment: Speci men Type: BLOOD SPECIMENOrdering Facility: [facility] Address: [address] [place], [place] [address] Performed By: #### 5 8410-2 ####[facility] LABIA [id number] [place] [address] [place] MCHC (RBC) [Mass/Vol] 33.9 g/dL Normal 30.5-36.0 [facility] Comment on above: Order Comment: Speci men Type: BLOOD SPECIMENOrdering Facility: [facility] Address: [address] [place], [place] [address] Performed By: #### 5 8410-2 ####[facility] [id number] [place] [address] [place] MCV (RBC) [Entitic vol] 93.7 fL Normal 80.0-100.0 [facility] Comment on above: Order Comment: Speci men Type: BLOOD SPECIMENOrdering Facility: [facility] Address: [address] [place], [place] [address] Performed By: #### 5 8410-2 ####[facility] LABIA [id number] [place] [address] [place] Nucleated RBC (Bld) [#/Vol] 10*3/uL Normal <0.[address] [facility] Comment on above: Order Comment: Speci men Type: BLOOD SPECIMENOrdering Facility: [facility] Address: [address] Performed By: #### 5 8410-2 ####[facility] LABIA [id number] [place] [address] [place] Platelet mean volume (Bld) [Entitic vol] 11.3 fL Normal 9.0-12.[address] [facility] Comment on above: Order Comment: Speci men Type: BLOOD SPECIMENOrdering Facility: [facility] Address: [address] [place] [address] Performed By: #### 5 8410-2 ####[facility] LABCLIA [id number] [place] [address] [place] Platelets (Bld) [#/Vol] 179 10*3/uL Normal 150-[address] [facility] Comment on above: Order Comment: Speci men Type: BLOOD SPECIMENOrdering Facility: [facility] Address: [address] Performed By: #### 5 8410-2 ####[facility] LABIA [id number] [place] [address] [facility] [place] RBC (Bld) [#/Vol] 3.81 10*6/uL Low 4.20-6.00 [facility] Comment on above: Order Comment: Speci men Type: BLOOD SPECIMENOrdering Facility: [facility] Address: [address] Performed By: #### 5 8410-2 ####[facility] LABIA [id number] [place] [address] [place] WBC (Bld) [#/Vol] 16.02 10*3/uL High 3.70-11.00 [facility] Comment on above: Order Comment: Speci men Type: BLOOD SPECIMENOrdering Facility: [facility] Address: [address] [place] [address] Performed By: #### 5 8410-2 ####[facility] LABIA [id number] [place] [address] [place] Erythrocyte distribution width (RBC) [Ratio] 12.8 % Normal 11.5-15.[address] [facility] Comment on above: Order Comment: Speci men Type: BLOOD SPECIMENOrdering Facility: [facility] Address: [address] Performed By: #### 5 8410-2 ####[facility] LABIA [id number] [place] [address] [place] Hematocrit (Bld) [Volume fraction] 32.6 % Low 39.0-51.[address] [facility] Comment on above: Order Comment: Speci men Type: BLOOD SPECIMENOrdering Facility: [facility] Address: [address] [place] [address] Performed By: #### 5 8410-2 ####[facility] [id number] [place] [address] [place] Hemoglobin (Bld) [Mass/Vol] 11.1 g/dL Low 13.0-17.[address] [facility] Comment on above: Order Comment: Speci men Type: BLOOD SPECIMENOrdering Facility: [facility] Address: [address] [place] [address] Performed By: #### 5 8410-2 ####[facility] [id number] [address] [place] MCH (RBC) [Entitic mass] 31.6 pg Normal 26.0-34.[address] [facility] Comment on above: Order Comment: Speci men Type: BLOOD SPECIMENOrdering Facility: [facility] Address: [address] [place] [address] Performed By: #### 5 8410-2 ####[facility] [id number] [place] [address] [place] MCHC (RBC) [Mass/Vol] 34.0 g/dL Normal 30.5-36.0 [facility] Comment on above: Order Comment: Speci men Type: BLOOD SPECIMENOrdering Facility: [facility] Address: [address] [place] [address] Performed By: #### 5 8410-2 ####[facility] [id number] [place] [address] [place] MCV (RBC) [Entitic vol] 92.9 fL Normal 80.0-100.0 [facility] Comment on above: Order Comment: Speci men Type: BLOOD SPECIMENOrdering Facility: [facility] Address: [address] [place], [place] [address] Performed By: #### 5 8410-2 ####[facility] LABCLIA [id number] [place] [address] [place] Nucleated RBC (Bld) [#/Vol] 10*3/uL Normal <0.[address] [facility] Comment on above: Order Comment: Speci men Type: BLOOD SPECIMENOrdering Facility: [facility] Address: [address] [place], [place] [address] Performed By: #### 5 8410-2 ####[facility] LABIA [id number] [place] [address] [place] Platelet mean volume (Bld) [Entitic vol] 11.2 fL Normal 9.0-12.[address] [facility] Comment on above: Order Comment: Speci men Type: BLOOD SPECIMENOrdering Facility: [facility] Address: [address] [place], [place] [address] Performed By: #### 5 8410-2 ####[facility] LABIA [id number] [place] [address] [place] Platelets (Bld) [#/Vol] 172 10*3/uL Normal 150-[address] [facility] Comment on above: Order Comment: Speci men Type: BLOOD SPECIMENOrdering Facility: [facility] Address: [address] [place], [place] [address] Performed By: #### 5 8410-2 ####[facility] LABCLIA [id number] [place] [address] [place] RBC (Bld) [#/Vol] 3.51 10*6/uL Low 4.20-6.00 [facility] Comment on above: Order Comment: Speci men Type: BLOOD SPECIMENOrdering Facility: [facility] Address: [address] [place] [id number] Performed By: #### 5 8410-2 ####[facility] LABIA [id number] [address] OF [facility] WBC (Bld) [#/Vol] 11.53 10*3/uL High 3.70-11.00 [facility] Comment on above: Order Comment: Speci men Type: BLOOD SPECIMENOrdering Facility: [facility] Address: [address] [place] [phone] Performed By: #### 5 8410-2 ####[facility] LABIA [id number] [address] OF [facility] CONSULT PROGon 08-28-2022 CONSULT PROG HNO ID: [id number] Author: Uzma Bates MD Service: Cardiovascular Medicine [...] 08/28/2022 1045 Gross per 24 hour Intake 61378.5 ml Output 70828 ml Net -16117.5 ml TELEMETRY: DATA: Laboratory: Recent Labs 08/28/22 [...] (2000) and TURP (2006) who presented to [facility] ED 08/26/22 for development of gross hematuria with lower pelvic pain x2 days. He was found to have elevated WBC with + UA, and started on IV atbx. He was transferred to [facility] 08/27 for further management. He was continued [...] RCRI score is 1 for hx of DE, making him a class II risk. This equates to a 6.0% 30-day risk of , DE, or cardiac arrest. Pt denies any cardiac complaints. Per Dr. Bates, no absolute contraindication to proceeding with urologic p (more content not included)... Normal [facility] Comprehensive metabolic 2000 panelon 08-28-2022 Albumin [Mass/Vol] 4.1 g/dL Normal 3.9-4.9 [facility] Comment on above: Order Comment: Speci men Type: BLOOD SPECIMENOrdering Facility: [facility] Address: [address] [place] [address] Performed By: #### 1 9123-9, 46534-2, 277- ####[facility] LABCLIA [id number] [place] [address] [place] ALP [Catalytic activity/Vol] 119 U/L High 38-[address] [facility] Comment on above: Order Comment: Speci men Type: BLOOD SPECIMENOrdering Facility: [facility] Address: [address] [place] [address] Performed By: #### 1 9123-9, 57509-7, 2776- ####[facility] LABCLIA [id number] [place] [address] [place] ALT [Catalytic activity/Vol] 23 U/L Normal 10-[address] [facility] Comment on above: Order Comment: Speci men Type: BLOOD SPECIMENOrdering Facility: [facility] Address: [address] [place] [address] Performed By: #### 1 9123-9, 03821-6, 2776- ####[facility] LABIA [id number] [place] [address] [place] Anion gap [Moles/Vol] 10 mmol/L Normal 9-18 [facility] Comment on above: Order Comment: Speci men Type: BLOOD SPECIMENOrdering Facility: [facility] Address: [address] [place] [address] Performed By: #### 1 9123-9, 13845-2, 2776-02 ####[facility] LABCLIA [id number] [place] [address] [place] AST [Catalytic activity/Vol] 21 U/L Normal 14-[address] [facility] Comment on above: Order Comment: Speci men Type: BLOOD SPECIMENOrdering Facility: [facility] Address: [address] [place] [address] Performed By: #### 1 9123-9, 78844-1, 2776-02 ####[facility] LABCLIA [id number] [place] [address] [place] Bilirubin [Mass/Vol] 1.1 mg/dL Normal 0.2-1.3 [facility] Comment on above: Order Comment: Speci men Type: BLOOD SPECIMENOrdering Facility: [facility] Address: [address] [place] [address] Performed By: #### 1 9123-9, 21696-9, 2776-02 ####[facility] LABCLIA [id number] [place] [address] [place] Calcium [Mass/Vol] 9.1 mg/dL Normal 8.5-10.2 [facility] Comment on above: Order Comment: Speci men Type: BLOOD SPECIMENOrdering Facility: [facility] Address: [address] [place], [place] [address] Performed By: #### 1 9123-9, 20731-0, 2776-02 ####[facility] LABCLIA [id number] [place] [address] [place] Chloride [Moles/Vol] 105 mmol/L Normal 97-105 [facility] Comment on above: Order Comment: Speci men Type: BLOOD SPECIMENOrdering Facility: [facility] Address: [address] [place], [place] [address] Performed By: #### 1 9123-9, 74342-9, 27708-18 ####[facility] LABCLIA [id number] [place] [address] [place] CO2 [Moles/Vol] 24 mmol/L Normal 22-[address] [facility] Comment on above: Order Comment: Speci men Type: BLOOD SPECIMENOrdering Facility: [facility] Address: [address] [place] [address] Performed By: #### 1 9123-9, 73217-6, 2776- ####[facility] LABIA [id number] [place] [address] [place] Creatinine [Mass/Vol] 0.76 mg/dL Normal 0.73-1.22 [facility] Comment on above: Order Comment: Speci men Type: BLOOD SPECIMENOrdering Facility: [facility] Address: [address] [place] [address] Performed By: #### 1 9123-9, , 2776-02 ####[facility] [id number] [place] [address] [place] ESTIMATED GLOMERULAR FILTRATION RATE 93 mL/min/1.73m??? Normal >=[address] [facility] Comment on above: Order Comment: Speci men Type: BLOOD SPECIMENOrdering Facility: [facility] Address: [address] [place] [address] Result Comment: Mariaelena mated Glomerular Filtration Rate [...] actual GFR. Performed By: #### 1 9123-9, 35952-4, 2776- ####[facility] LABIA [id number] [place] [address] [place] Glucose [Mass/Vol] 147 mg/dL High 74-99 [facility] Comment on above: Order Comment: Speci men Type: BLOOD SPECIMENOrdering Facility: [facility] Address: [address] [place] [phone] Result Comment: The [place] [employer] Association (ADA) provides guidance for cutoff [...] Standards of Medical Care in Diabetes 2016, [place] [employer]. Diabetes Care. 2016.39(Suppl 1). Performed By: #### 1 9123-9, 78091-2, 2777- ####[facility] LABCLIA [id number] [place] [address] [place] Potassium [Moles/Vol] 4.2 mmol/L Normal 3.7-5.1 [facility] Comment on above: Order Comment: Portia tay Type: BLOOD SPECIMENOrdering Facility: [facility] Address: [address] [place] [address] Performed By: #### 1 9123-9, 61396-3, 2777- ####[facility] LABCLIA [id number] [place] [address] [place] Protein [Mass/Vol] 6.6 g/dL Normal 6.3-8.0 [facility] Comment on above: Order Comment: Portia tay Type: BLOOD SPECIMENOrdering Facility: [facility] Address: [address] [place] [employer] [place], [place] [address] Performed By: #### 1 9123-9, 54923-6, 2777-1 ####[facility] LABCLIA [id number] [place] [address] [place] Sodium [Moles/Vol] 139 mmol/L Normal 136-144 [facility] Comment on above: Order Comment: Speci men Type: BLOOD SPECIMENOrdering Facility: [facility] Address: [address] [place] [phone] Performed By: #### 1 9123-9, 48294-1, 2777-1 ####[facility] LABCLIA [id number] [place] [address] [place] Urea nitrogen [Mass/Vol] 14 mg/dL Normal 9-[address] [facility] Comment on above: Order Comment: Speci men Type: BLOOD SPECIMENOrdering Facility: [facility] Address: [address] [place] [phone] Performed By: #### 1 9123-9, 20683-8, 2777-1 ####[facility] LABCLIA [id number] [address] [place] ECHOon 08-28-2022 Echocardiography Echocardiography Rep ort: Transthoracic Echo [facility] Bedside Date of service: 08/28/2022 9:45:03 AM BENCH MOLDER Ordering physician: DAVID ANDERWS Indication: Evaluation of ventricular function following ACS Technologist: aPloma Figueredo Interpreting physician: Pantera Lee MD PATIENT: [...] * * Final * * * CC [facility] : [id number] Normal [facility] HISTORY PHYSICALon HISTORY PHYSICAL HNO ID: [id number] Author: Earnest Portillo MD Service: Critical Care Author Type: Physician Type: HANDP Filed: 08/28/2022 10:48 PM Note Text: SERVICE DATE: 08/28/2022 SERVICE TIME: 9:49 PM SICU HANDP NOTE HPI: Olaf Briones is a 77 year old male with PMHx of recent STEMI on 08/20/22 (s/p JUHI),HTN, HLD, DM, nephrolithiasis, transferred from [facility] for gross hematuria. He is now [...] ASA and ticagrelor Coronary artery disease involving solomon coronary artery of solomon heart without angina pectoris recent STEMI on 08/20/22 s/p JUHI Plan -Continue DAPT with ASA and ticagrelor Endocrinology Type 2 diabetes mellitus without complication, without long-term current use of insulin (HCC) No (more content not included)... Normal [facility] Magnesium SerPl-mCncon 08-28 Magnesium [Mass/Vol] 2.1 mg/dL Normal 1.7-2.3 [facility] Comment on above: Order Comment: Speci men Type: BLOOD SPECIMENOrdering Facility: [facility] Address: [address] [place] [address] Performed By: #### 1 9123-9, 98938-5, 2777-1 ####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 Normal [facility] Phosphate [Mass/Vol] 2.9 mg/dL Normal 2.7-4.8 [facility] Comment on above: Order Comment: Speci men Type: BLOOD SPECIMENOrdering Facility: [facility] Address: [address] [place] [address] Performed By: #### 1 9123-9, 68326-5, 2777-1 ####[facility] LABIA [id number] [address] [place] SURGICAL PATHOLOGYon 023 CASE REPORT Normal [facility] Comment on above: Order Comment: Speci men Type: TISSUE SPECIMENOrdering Facility: [facility] Address: [address] [place] [address] Result Comment: Surg ical Pathology Report Case: [id number] Authorizing Provider: David Andrews MD Collected: 08/28/2022 06:54 PM Ordering Location: Admitting Received: 08/29/2022 07:58 AM Pathologist: Gal Poon MD Specimens: A) - PROSTATE TISSUE (CHIPS) B) - PROSTATE TISSUE (CHIPS), #2 Performed By: #### S ####[facility] LABCLIA [id number] [address] [place] CLINICAL HISTORY Normal [facility] Comment on above: Order Comment: Speci men Type: TISSUE SPECIMENOrdering Facility: [facility] Address: [address] [place] [address] Result Comment: Pre- op diagnosis: Hematuria [R31.9] Performed By: #### S ####[facility] LABCLIA [id number] [address] FINAL DIAGNOSIS Normal [facility] Comment on above: Order Comment: Speci men Type: TISSUE SPECIMENOrdering Facility: [facility] Address: [address] [place] [address] Result Comment: AAltagracia smythate, transurethral resection: - Benign prostatic hyperplasia. A. 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 Performed By: #### S ####[facility] LABCLIA [id number] [address] FINAL PERFORMING LAB Normal [facility] Comment on above: Order Comment: Speci men Type: TISSUE SPECIMENOrdering Facility: [facility] Address: [address] [place] [address] Result Comment: Diag nostic interpretation performed at [facility], [address] [address] CLIA# [id number] Senior Sql Server Database Developer: Jacob Urias M.D. Performed By: #### S ####[facility] LABCLIA [id number] [address] GROSS DESCRIPTION Normal [facility] Comment on above: Order Comment: Speci men Type: TISSUE SPECIMENOrdering Facility: [facility] Address: [address] [place] [address] Result Comment: A. P ROSTATE TISSUE (CHIPS) [...] in cassette B1. Gross examination performed at [facility], [address] 08/29/2022 2:10 PM Performed By: #### S ####[facility] LABCLIA [id number] [place] [address] [place] VENOUS BLOOD GASES WITH IONI ZED MAGNESIUMon 08-28-2022 BASE DEFICIT, VENOUS -1 mmol/L Normal -2-0 [facility] Comment on above: Order Comment: Speci men Type: VENOUS BLOOD SPECIMENOrdering Facility: [facility] Address: [address] [place] [address] Performed By: #### V ALLMG ####[facility] LABIA [id number] [place] [address] [place] Calcium.ionized (Bld) [Mass/Vol] 1.19 mmol/L Normal 1.08-1.[address] [facility] Comment on above: Order Comment: Speci men Type: VENOUS BLOOD SPECIMENOrdering Facility: [facility] Address: [address] [place] [address] Performed By: #### V ALLMG ####[facility] LABCLIA [id number] [place] [address] [place] Calcium.ionized adjusted to pH 7.4 (BldA) [Moles/Vol] 1.18 mmol/L Normal 1.08-1.[address] [facility] Comment on above: Order Comment: Speci men Type: VENOUS BLOOD SPECIMENOrdering Facility: [facility] Address: [address] [place] [address] Performed By: #### V ALLMG ####[facility] LABCLIA [id number] [place] [address] [place] Carboxyhemoglobin (BldV) [Mass fraction] 1.9 % Normal 0.0-2.[address] [facility] Comment on above: Order Comment: Speci men Type: VENOUS BLOOD SPECIMENOrdering Facility: [facility] Address: [address] [place] [address] Result Comment: Carb oxyhemoglobin Reference Range for Smokers: 2.0-8.0% Performed By: #### V ALLMG ####[facility] LABCLIA [id number] [place] [address] [place] CO2 (BldV) [Partial pressure] 40 mm[Hg] Low 42-[address] [facility] Comment on above: Order Comment: Speci men Type: VENOUS BLOOD SPECIMENOrdering Facility: [facility] Address: [address] [place] [address] Performed By: #### V ALLMG ####[facility] LABCLIA [id number] [place] [address] [place] CO2 [Moles/Vol] 25 mmol/L Normal 25-[address] [facility] Comment on above: Order Comment: Speci men Type: VENOUS BLOOD SPECIMENOrdering Facility: [facility] Address: [address] [place] [address] Performed By: #### V ALLMG ####[facility] LABCLIA [id number] [place] [address] [place] CO2 adjusted to patient's actual temperature (BldV) [Partial pressure] 40 mmHg Low 42-[address] [facility] Comment on above: Order Comment: Speci men Type: VENOUS BLOOD SPECIMENOrdering Facility: [facility] Address: [address] [place], [place] [id number] Performed By: #### V ALLMG ####[facility] LABCLIA [id number] [place] [address] [place] Glucose [Mass/Vol] 120 mg/dL High 60-105 [facility] Comment on above: Order Comment: Speci men Type: VENOUS BLOOD SPECIMENOrdering Facility: [facility] Address: [address] Performed By: #### V ALLMG ####[facility] LABCLIA [id number] [place] [address] [place] HCO3 (Bld) [Moles/Vol] 24 mmol/L Normal 24-28 [facility] Comment on above: Order Comment: Speci men Type: VENOUS BLOOD SPECIMENOrdering Facility: [facility] Address: [address] Performed By: #### V ALLMG ####[facility] LABIA [id number] [place] [address] [place] Hematocrit (Bld) [Volume fraction] 37.2 % Low 39.0-51.[address] [facility] Comment on above: Order Comment: Speci men Type: VENOUS BLOOD SPECIMENOrdering Facility: [facility] Address: [address] [place], [place] [id number] Performed By: #### V ALLMG ####[facility] LABIA [id number] [place] [address] [place] Hemoglobin (Bld) [Mass/Vol] 12.1 g/dL Low 13.0-17.[address] [facility] Comment on above: Order Comment: Speci men Type: VENOUS BLOOD SPECIMENOrdering Facility: [facility] Address: [address] [place], [place] [address] Performed By: #### V ALLMG ####[facility] LABIA [id number] [place] [address] [place] Lactate [Moles/Vol] 1.4 mmol/L Normal 0.5-2.2 [facility] Comment on above: Order Comment: Speci men Type: VENOUS BLOOD SPECIMENOrdering Facility: [facility] Address: [address] Performed By: #### V ALLMG ####[facility] LABIA [id number] [place] [address] [place] Magnesium [Moles/Vol] 0.58 mmol/L Normal 0.45-0.60 [facility] Comment on above: Order Comment: Speci men Type: VENOUS BLOOD SPECIMENOrdering Facility: [facility] Address: [address] [place], [place] [id number] Performed By: #### V ALLMG ####[facility] LABIA [id number] [place] [address] [place] Methemoglobin (Bld) [Mass fraction] 1.7 % High 0.0-1.[address] [facility] Comment on above: Order Comment: Speci men Type: VENOUS BLOOD SPECIMENOrdering Facility: [facility] Address: [address] [place] [address] Performed By: #### V ALLMG ####[facility] LABIA [id number] [address] [place] Oxygen (BldV) [Partial pressure] 96 mm[Hg] High 35-[address] [facility] Comment on above: Order Comment: Speci men Type: VENOUS BLOOD SPECIMENOrdering Facility: [facility] Address: [address] [place], [place] [address] Performed By: #### V ALLMG ####[facility] LABIA [id number] [place] [address] [place] Oxygen adjusted to patient's actual temperature (BldV) [Partial pressure] 96 mmHg High 35-[address] [facility] Comment on above: Order Comment: Speci men Type: VENOUS BLOOD SPECIMENOrdering Facility: [facility] Address: [address] [place], [place] [address] Performed By: #### V ALLMG ####[facility] LABIA [id number] [place] [address] [place] Oxygen saturation in Venous blood 97 % High 60-[address] [facility] Comment on above: Order Comment: Speci men Type: VENOUS BLOOD SPECIMENOrdering Facility: [facility] Address: [address] [place], [place] [id number] Performed By: #### V ALLMG ####[facility] LABCLIA [id number] [place] [address] [place] Oxyhemoglobin (BldV) [Mass fraction] 94 % High 60-[address] [facility] [facility] Comment on above: Order Comment: Speci men Type: VENOUS BLOOD SPECIMENOrdering Facility: [facility] Address: [address] [place], [place] [address] Performed By: #### V ALLMG ####[facility] LABCLIA [id number] [place] [address] [place] pH (BldV) 7.39 [pH] Normal 7.32-7.[address] [facility] Comment on above: Order Comment: Speci men Type: VENOUS BLOOD SPECIMENOrdering Facility: [facility] Address: [address] [place], [place] [address] Performed By: #### V ALLMG ####[facility] LABIA [id number] [place] [address] [place] pH adjusted to patient's actual temperature (BldV) 7.39 Normal 7.32-7.[address] [facility] Comment on above: Order Comment: Speci men Type: VENOUS BLOOD SPECIMENOrdering Facility: [facility] Address: [address] [place], [place] [address] Performed By: #### V ALLMG ####[facility] LABIA [id number] [place] [address] [place] Potassium [Moles/Vol] 3.8 mmol/L Normal 3.5-5.0 [facility] Comment on above: Order Comment: Speci men Type: VENOUS BLOOD SPECIMENOrdering Facility: [facility] Address: [address] [place], [place] [address] Performed By: #### V ALLMG ####[facility] LABCLIA [id number] [place] [address] [place] Sodium [Moles/Vol] 139 mmol/L Normal 136-144 [facility] Comment on above: Order Comment: Speci men Type: VENOUS BLOOD SPECIMENOrdering Facility: [facility] Address: [address] [place] [address] Performed By: #### V ALLMG ####[facility] LABCLIA [id number] [place] [address] [place] XR CHEST 1V [...] tortuous. Other: Generalized osteopenia. IMPRESSION: See result. Staff Sonographer: PSCB Transcribe Date/Time: Aug 28 2022 10:04P Dictated by : AMERICO ADHIKARI MD This examination was interpreted and the report reviewed and electronically signed by: AMERICO ADHIKARI MD on Aug 28 2022 10:06PM EST [id number] Normal [facility] Bacteria Bld Culton 08-28-19 23 Bacteria identified Cx Nom (Bld) CULTURE, BLOOD: No growth 5 days Normal [facility] Comment on above: Performed By: #### 6 00-7 ####[facility] LABCLIA [id number] [place] [address] [place] Bacteria identified Cx Nom (Bld) CULTURE, BLOOD: No growth 5 days Normal [facility] Comment on above: Performed By: #### 6 00-7 ####[facility] LABCLIA [id number] [place] [id number] [place] Bacteria Ur Culton 3 Bacteria identified Cx Nom (U) CULTURE, URINE: No growth (<1,000 CFU/ml) Normal [facility] Comment on above: Performed By: #### 6 30-4 ####[facility] LABCLIA [id number] [place] [address] [place] Basic metabolic 2000 panelon 08-27-2022 Anion gap [Moles/Vol] 13 mmol/L Normal 9-18 [facility] Comment on above: Order Comment: Speci men Type: BLOOD SPECIMENOrdering Facility: [facility] Address: [address] [place] [address] Performed By: #### 2 4321-2, , 2776-02 ####[facility] LABCLIA [id number] [place] [address] [place] Calcium [Mass/Vol] 9.3 mg/dL Normal 8.5-10.2 [facility] Comment on above: Order Comment: Speci men Type: BLOOD SPECIMENOrdering Facility: [facility] Address: [address] [place] [address] Performed By: #### 2 4321-2, , 2776-02 ####[facility] LABCLIA [id number] [place] [address] [place] Chloride [Moles/Vol] 105 mmol/L Normal 97-105 [facility] Comment on above: Order Comment: Speci men Type: BLOOD SPECIMENOrdering Facility: [facility] Address: [address] [place], [place] [address] Performed By: #### 2 4321-2, , 2776-02 ####[facility] LABCLIA [id number] [place] [address] [place] CO2 [Moles/Vol] 22 mmol/L Normal 22-[address] [facility] Comment on above: Order Comment: Speci men Type: BLOOD SPECIMENOrdering Facility: [facility] Address: [address] [place], [place] [address] Performed By: #### 2 4321-2, , 2776-02 ####[facility] LABIA [id number] [place] [address] [place] Creatinine [Mass/Vol] 0.79 mg/dL Normal 0.73-1.22 [facility] Comment on above: Order Comment: Speci men Type: BLOOD SPECIMENOrdering Facility: [facility] Address: [address] [place] [address] Performed By: #### 2 4321-2, , 2776-02 ####[facility] LABIA [id number] [place] [address] [place] ESTIMATED GLOMERULAR FILTRATION RATE 91 mL/min/1.73m??? Normal >=[address] [facility] Comment on above: Order Comment: Speci men Type: BLOOD SPECIMENOrdering Facility: [facility] Address: [address] [place] [address] Result Comment: Mariaelena mated Glomerular Filtration Rate [...] #### 2 4321-2, , 2776-02 ####[facility] LABIA [id number] [place] [id number] [place] Glucose [Mass/Vol] 197 mg/dL High 74-99 [facility] Comment on above: Order Comment: Speci men Type: BLOOD SPECIMENOrdering Facility: [facility] Address: [address] [place] [address] Result Comment: The [place] Diabetes Association (ADA) provides guidance for cutoff [...] Standards of Medical Care in Diabetes 2016, [place] [employer]. Diabetes Care. 2016.39(Suppl 1). Performed By: #### 2 4321-2, , 2776-02 ####[facility] LABCLIA [id number] [place] [address] [place] Potassium [Moles/Vol] 4.3 mmol/L Normal 3.7-5.1 [facility] Comment on above: Order Comment: Speci men Type: BLOOD SPECIMENOrdering Facility: [facility] Address: [address] [place] [address] Performed By: #### 2 4321-2, , 2776-02 ####[facility] LABCLIA [id number] [place] [address] [place] Sodium [Moles/Vol] 140 mmol/L Normal 136-144 [facility] Comment on above: Order Comment: Speci men Type: BLOOD SPECIMENOrdering Facility: [facility] Address: [address] [place], [place] [address] Performed By: #### 2 4321-2, , 2776-02 ####[facility] LABCLIA [id number] [place] [address] [place] Urea nitrogen [Mass/Vol] 17 mg/dL Normal 9-[address] [facility] Comment on above: Order Comment: Speci men Type: BLOOD SPECIMENOrdering Facility: [facility] Address: [address] [place] [address] Performed By: #### 2 4321-2, 49077-8, 2777-1 ####[facility] [id number] [place] [id number] [place] CASE MGT INIT ASSESon 2022 CASE MGT INIT ASSES HNO ID: [id number] Author: Yane George RN Service: ? Author [...] Current Advance Directive: Health Care Power of Director Embalmer (Patient reports he has AD. request copy to scan for Scopely chart) Current Living Arrangements and Support Lives [...] General wellness, Be able to go home [place] Choice Explained: [place] Choice Given: No Reason Not Given: [...] nephrolithiasis who was transferred from [facility] w/ gross hematuria CM met patient in room. Patient lives with spouse at home. Patient reports independence at home with adl's/iadl's prior to admission. No oxygen, or cpaps at home. Had recent DE in past. Cardiology on consult. No current [...] 27, 2022 TIME: 5:05 PM CONTACT #: [phone] [facility] CBC W Auto Differential pane l (Bld)on 08-27-2022 Basophils (Bld) [#/Vol] 0.03 10*3/uL Normal <0.[address] [facility] Comment on above: Order Comment: Speci men Type: BLOOD SPECIMENOrdering Facility: [facility] Address: [address] [place] [address] Performed By: #### 5 7021-8 ####[facility] LABCLIA [id number] [place] [address] [place] Basophils/100 WBC (Bld) 0.2 % Normal C [facility] Comment on above: Order Comment: Speci men Type: BLOOD SPECIMENOrdering Facility: [facility] Address: [address] [place] [address] Performed By: #### 5 7021-8 ####[facility] LABCLIA [id number] [place] [address] [place] Differential cell count method Nom (Bld) Auto Normal [facility] Comment on above: Order Comment: Speci men Type: BLOOD SPECIMENOrdering Facility: [facility] Address: [address] [place] [address] Performed By: #### 5 7021-8 ####[facility] LABCLIA [id number] [place] [address] [place] Eosinophils (Bld) [#/Vol] 10*3/uL Normal <0.[address] [facility] Comment on above: Order Comment: Speci men Type: BLOOD SPECIMENOrdering Facility: [facility] Address: [address] [place] [address] Performed By: #### 5 7021-8 ####[facility] LABCLIA [id number] [place] [address] [place] Eosinophils/100 WBC (Bld) 0.1 % Normal [facility] Comment on above: Order Comment: Speci men Type: BLOOD SPECIMENOrdering Facility: [facility] Address: [address] [place], [place] [address] Performed By: #### 5 7021-8 ####[facility] LABCLIA [id number] [place] [address] [place] Erythrocyte distribution width (RBC) [Ratio] 12.5 % Normal 11.5-15.[address] [facility] Comment on above: Order Comment: Speci men Type: BLOOD SPECIMENOrdering Facility: [facility] Address: [address] [place], [place] [address] Performed By: #### 5 7021-8 ####[facility] LABCLIA [id number] [place] [address] [place] Hematocrit (Bld) [Volume fraction] 38.5 % Low 39.0-51.[address] [facility] Comment on above: Order Comment: Speci men Type: BLOOD SPECIMENOrdering Facility: [facility] Address: [address] Performed By: #### 5 7021-8 ####[facility] LABCLIA [id number] [place] [address] [place] Hemoglobin (Bld) [Mass/Vol] 13.4 g/dL Normal 13.0-17.[address] [facility] Comment on above: Order Comment: Speci men Type: BLOOD SPECIMENOrdering Facility: [facility] Address: [address] Performed By: #### 5 7021-8 ####[facility] LABCLIA [id number] [place] [address] [place] Immature granulocytes (Bld) [#/Vol] 0.10 10*3/uL High <0.[address] [facility] Comment on above: Order Comment: Speci men Type: BLOOD SPECIMENOrdering Facility: [facility] Address: [address] Performed By: #### 5 7021-8 ####[facility] LABCLIA [id number] [place] [address] [place] Immature granulocytes/100 WBC (Bld) 0.6 % Normal [facility] Comment on above: Order Comment: Speci men Type: BLOOD SPECIMENOrdering Facility: [facility] Address: [address] Performed By: #### 5 7021-8 ####[facility] LABCLIA [id number] [place] [address] [place] Lymphocytes (Bld) [#/Vol] 1.16 10*3/uL Normal 1.00-4.[address] [facility] Comment on above: Order Comment: Speci men Type: BLOOD SPECIMENOrdering Facility: [facility] Address: [address] Performed By: #### 5 7021-8 ####[facility] LABCLIA [id number] [address] [place] Lymphocytes/100 WBC (Bld) 7.1 % Normal [facility] Comment on above: Order Comment: Speci men Type: BLOOD SPECIMENOrdering Facility: [facility] Address: [address] [place] [address] Performed By: #### 5 7021-8 ####[facility] LABIA [id number] [address] MCH (RBC) [Entitic mass] 31.5 pg Normal 26.0-34.[address] [facility] Comment on above: Order Comment: Speci men Type: BLOOD SPECIMENOrdering Facility: [facility] Address: [address] [place] [address] Performed By: #### 5 7021-8 ####[facility] LABIA [id number] [address] MCHC (RBC) [Mass/Vol] 34.8 g/dL Normal 30.5-36.0 [facility] Comment on above: Order Comment: Speci men Type: BLOOD SPECIMENOrdering Facility: [facility] Address: [address] [place], [place] [address] Performed By: #### 5 7021-8 ####[facility] LABIA [id number] [address] [place] MCV (RBC) [Entitic vol] 90.6 fL Normal 80.0-100.0 C [facility] Comment on above: Order Comment: Speci men Type: BLOOD SPECIMENOrdering Facility: [facility] Address: [address] [place], [place] [address] Performed By: #### 5 7021-8 ####[facility] LABIA [id number] [address] [place] Monocytes (Bld) [#/Vol] 1.00 10*3/uL High <0.[address] [facility] Comment on above: Order Comment: Speci men Type: BLOOD SPECIMENOrdering Facility: [facility] Address: [address] Performed By: #### 5 7021-8 ####[facility] LABCLIA [id number] [place] [address] [place] Monocytes/100 WBC (Bld) 6.2 % Normal [facility] Comment on above: Order Comment: Speci men Type: BLOOD SPECIMENOrdering Facility: [facility] Address: [address] Performed By: #### 5 7021-8 ####[facility] LABIA [id number] [place] [address] [place] Neutrophils (Bld) [#/Vol] 13.93 10*3/uL High 1.45-7.[address] [facility] Comment on above: Order Comment: Speci men Type: BLOOD SPECIMENOrdering Facility: [facility] Address: [address] Performed By: #### 5 7021-8 ####[facility] LABIA [id number] [place] [address] [place] Neutrophils/100 WBC (Bld) 85.8 % Normal [facility] Comment on above: Order Comment: Speci men Type: BLOOD SPECIMENOrdering Facility: [facility] Address: [address] Performed By: #### 5 7021-8 ####[facility] LABIA [id number] [place] [address] [place] Nucleated RBC (Bld) [#/Vol] 10*3/uL Normal <0.[address] [facility] Comment on above: Order Comment: Speci men Type: BLOOD SPECIMENOrdering Facility: [facility] Address: [address] Performed By: #### 5 7021-8 ####[facility] LABCLIA [id number] [place] [address] [place] Nucleated RBC/100 WBC (Bld) [Ratio] 0.0 /100 WBC Normal [facility] Comment on above: Order Comment: Speci men Type: BLOOD SPECIMENOrdering Facility: [facility] Address: [address] [place], [place] [address] Performed By: #### 5 7021-8 ####[facility] LABIA [id number] [place] [address] [place] Platelet mean volume (Bld) [Entitic vol] 11.4 fL Normal 9.0-12.[address] [facility] Comment on above: Order Comment: Speci men Type: BLOOD SPECIMENOrdering Facility: [facility] Address: [address] [place], [place] [address] Performed By: #### 5 7021-8 ####[facility] LABIA [id number] [place] [address] [place] Platelets (Bld) [#/Vol] 214 10*3/uL Normal 150-[address] [facility] Comment on above: Order Comment: Speci men Type: BLOOD SPECIMENOrdering Facility: [facility] Address: [address] [place], [place] [address] Performed By: #### 5 7021-8 ####[facility] LABIA [id number] [place] [address] [place] RBC (Bld) [#/Vol] 4.25 10*6/uL Normal 4.20-6.00 [facility] Comment on above: Order Comment: Speci men Type: BLOOD SPECIMENOrdering Facility: [facility] Address: [address] [place], [place] [address] Performed By: #### 5 7021-8 ####[facility] LABIA [id number] [address] [place] WBC (Bld) [#/Vol] 16.24 10*3/uL High 3.70-11.00 [facility] Comment on above: Order Comment: Speci men Type: BLOOD SPECIMENOrdering Facility: [facility] Address: [address] [place] [address] Performed By: #### 5 7021-8 ####[facility] LABCLIA [id number] [address] [place] BLOOD TYPEon 023 ABO O Normal [facility] Comment on above: Order Comment: Speci men Type: BLOOD SPECIMENOrdering Facility: [facility] Address: [address] [place] [address] Performed By: #### C ONABO ####[facility] BLOOD BANKCLIA [id number] [address] Rh Nom (Bld) Positive Normal [facility] Comment on above: Order Comment: Speci men Type: BLOOD SPECIMENOrdering Facility: [facility] Address: [address] [place] [address] Performed By: #### C ONABO ####[facility] BLOOD BANKCLIA [id number] [address] CONSULTon 08-27-2022 CONSULT HNO ID: [id number] Author: Uzma Bates MD Service: Cardiovascular Medicine Author Type: Physician Type: Consults Filed: 08/27/2022 8:39 PM Note Text: [facility] CARDIOVASCULAR MEDICINE CONSULT NOTE (Template ID [id number]) Olaf Briones [id number] PRIMARY SERVICE: Urology CONSULTING SERVICE: Cardiovascular Medicine: [...] nephrolithiasis who was transferred from [facility] w/ gross hematuria. Hematuria started on Thursday [...] passed out . Pt was taken to [facility] by EMS and was found to be in complete AV block with HR in 40's, inferolateral ST elevations. In label maker, there were concerns that pacemaker might be necessary. After stent was deployed in prox RCA,AV block resolved and HR normalized. Pt was put on ASA, Brillinta, Lisinopril (2.5), and Coreg (6.25) and was discharged two days later. PAST MEDICAL HISTORY HTN, HLD, CAD, DM FAMILY HISTORY Son- [place], Daughter- DE HOME MEDICATIONS allopurinol (ZYLOPRIM) 300 mg tabletTake [...] content not included)... Normal [facility] ECG COMPLETEon 08-27-2022 ECG COMPLETE Ventricular Rate : 6 8 BPM Atrial Rate : 68 BPM P-R Interval : 186 ms QRS Duration : 102 ms Q-T Interval : 452 ms QTC Calculation(Bazett) : 480 ms Calculated P Murdo : 7 degrees Calculated R Murdo : -25 degrees Calculated T Murdo : -33 degrees NORMAL SINUS RHYTHM MINIMAL VOLTAGE CRITERIA FOR LVH, MAY BE NORMAL VARIANT ( R in aVL ) CANNOT EXCLUDE ANTERIOR MYOCARDIAL INFARCTION , AGE UNDETERMINED ABNORMAL ECG Confirmed by CODY MANCIA MD ([id number]) on 09/01/2022 3:04:36 PM NAME : OLAF BRIONES PID : [id number] : 1945 Gender : Male Race : Unknown ORD : [id number] Procedure Date : Aug 27 2022 12:56:05 [...] , Acquired by : CAROL MALDONADO Normal [facility] HISTORY PHYSICALon HISTORY PHYSICAL HNO ID: [id number] Author: David Andrews MD Service: Urology Author Type: Physician Type: HANDP Filed: 08/27/2022 9:26 PM Note Text: UROLOGY SERVICE HISTORY AND PHYSICAL Name: Olaf Briones Bed: H050 001/H050-01 Date: 08/27/2022 After Hours [facility] [place] [facility] Pager: [phone] ASSESSMENT AND PLAN Olaf Briones is a 77 year old male with PMHx of HTN, HLD, DM, recent STEMI (s/p JUHI), nephrolithiasis, transferred from [facility] for gross hematuria. Currently with 18Fr [...] catheter stops flowing clamp CBI and page [phone] - Will continue to follow urine, if remains clear may be able to avoid OR this admission in setting of recent STEMI requiring PCI - Working to obtain cardiology records from [facility] Gt Encarnacion MD PGY-6, Urology Pager: [phone] After 1800 and on weekends please page [phone] for assistance. Active Problems Prior DE POA: Yes - placed on ASA 81, [...] recent STEMI (s/p JUHI), nephrolithiasis, transferred from [facility] for gross hematuria. He recently had primary revascularization of proximal RCA (3mm JUHI) placed at [facility] for STEMI on August 20. He [...] seen by Dr. Ivory in [facility] for nephrolithiasis. He previously had ESWL (2000), [...] as need (more content not included)... [facility] HNO ID: [id number] Author: Francis Irizarry MD Service: Urology Author Type: Resident Type: Chg in Clinical Condition Filed: 08/27/2022 9:40 AM Note Text: Olaf Briones 08/27/2022 9:33 AM AMET for orthostatic hypotension Assessment: Olaf Briones is a 77 year old male with PMHx of HTN, HLD, DM, recent STEMI (s/p JUHI), nephrolithiasis, transferred from [facility] for gross hematuria. Currently with 18Fr [...] brillinta for recent STEMI last week at [facility]. Unable to see ECHO data, EKG [...] his is coming to visit. Stated his mysql developer in [place] at [facility] is Dr. Zamora. Luis Angel on brillinta [...] at bedside to have bring records from [facility] to here. Will also request ECHO report from [facility] as well. - Continue CBI, titrate to light pink Discussed with chief, Dr. Encarnacion, and staff, Dr. Sharon Irizarry MD Pager [phone], after hours or weekends please page [phone] Urology Resident, PGY-5 Normal [facility] HNO ID: [id number] Author: Claudy William APRN.CHURCH SUPERVISOR Service: Critical Care Author Type: Nurse Practitioner [...] TIME: 9:11 AM Normal [facility] Magnesium SerPl-mCncon 08-27 Magnesium [Mass/Vol] 2.2 mg/dL Normal 1.7-2.3 [facility] Comment on above: Order Comment: Portia tay Type: BLOOD SPECIMENOrdering Facility: [facility] Address: [address] [place] [address] Performed By: #### 2 4321-2, 44705-6, 2777-1 ####[facility] LABCLIA [id number] [address] OF [facility] PT panel Coag (PPP)on 2022 INR Coag (PPP) [Relative time] 1.0 {INR} Normal 0.9-1.[address] [facility] Comment on above: Order Comment: Portia tay Type: BLOOD SPECIMENOrdering Facility: [facility] Address: [address] [place] [address] Result Comment: Mago min K Antagonist (VKA) Therapeutic Range: INR 2 to 3 (Target INR of 2.5) Note: For patients treated with VKA drugs, such as warfarin, the [place] [employer] 2012 Guideline recommends [...] Chest 2012, 141:7S-47S Daniel RA, et al. [facility] 2017, 70: 252-289 Performed By: #### 3 4528-0, 79743-1 ####[facility] LABCLIA [id number] [place] [address] [place] PT Coag (PPP) [Time] 10.4 s Normal 9.7-13.0 [facility] Comment on above: Order Comment: Speci men Type: BLOOD SPECIMENOrdering Facility: [facility] Address: [address] [place] [address] Performed By: #### 3 4528-0, 30726-4 ####[facility] LABCLIA [id number] [address] [place] Phosphate SerPl-mCncon 08-27 Phosphate [Mass/Vol] 3.7 mg/dL Normal 2.7-4.8 [facility] [facility] Comment on above: Order Comment: Speci men Type: BLOOD SPECIMENOrdering Facility: [facility] Address: [address] [place] [address] Performed By: #### 2 4321-2, 65265-6, 2777-1 ####[facility] LABCLIA [id number] [address] [place] TYPE + SCREENon 08-27-2022 ABO O Normal [facility] Comment on above: Order Comment: Speci men Type: BLOOD SPECIMENOrdering Facility: [facility] Address: [address] [place] [address] Performed By: #### T SCR ####[facility] BLOOD BANKCLIA [id number] [address] [place] HISTORICAL AB SCR STATUS Negative Normal [facility] Comment on above: Order Comment: Speci men Type: BLOOD SPECIMENOrdering Facility: [facility] Address: [address] [address] Performed By: #### T SCR ####CC MAIN BLOOD BANKCLIA [id number] [address] Rh Nom (Bld) Positive Normal [facility] Comment on above: Order Comment: Speci men Type: BLOOD SPECIMENOrdering Facility: [facility] Address: [address] [address] Performed By: #### T SCR ####[facility] BLOOD BANKIA [id number] [address] TYPE AND SCREEN EXPIRATION 08/30/2022 23:[address] [facility] Comment on above: Order Comment: Speci men Type: BLOOD SPECIMENOrdering Facility: [facility] Address: [address] [address] Performed By: #### T SCR ####[facility] BLOOD BANKCLIA [id number] [address] [place] aPTT PPPon 08-27-2022 aPTT Coag (PPP) [Time] 28.7 s Normal 23.0-32.4 Cl [facility] Comment on above: Order Comment: Speci men Type: BLOOD SPECIMENOrdering Facility: [facility] Address: [address] [address] Performed By: #### 3 4528-0, 97290-9 ####[facility] LABCLIA [id number] [address] OF [place] CHEMISTRYOrdered By: SYSTEM SYSTEM [...] Cx Nom (U) No growth to date [facility] URINALYSISOrdered By: Jordan quintana on 08-26-2022 [...] Interpretation Code Negative [facility] UA Auto SS [facility].plasma/[facility]. RBC (Bld) [Mass ratio] >75 /HPF Invalid [...] 08-22-2022 Basophils (Bld) [#/Vol] 0.0 10*3/uL 0.0-0.2 [facility] Basophils/100 WBC Auto (Bld) Ordered By: Steven Zamora on 08-22-2022 Basophils/100 WBC (Bld) 0.3 % . [facility] Calcium [Mass/volume] in Ser um or PlasmaOrdered By: Steven Zamora on 08-22-2022 Calcium [Mass/Vol] 9.0 mg/dL 8.6-10.3 [facility] Carbon dioxide, total [Moles /volume] in Serum or PlasmaOrdered By: Steven Zamora on 08-22-2022 CO2 [Moles/Vol] 26.0 mmol/L 21.0-31.0 [facility] Chloride [Moles/volume] in S jamin or PlasmaOrdered By: Steven Zamora on 08-22-2022 Chloride [Moles/Vol] 105 mmol/L 98-107 [facility] Creatinine [Mass/volume] in Serum or PlasmaOrdered By: Steven Zamora on 08-22-2022 Creatinine [Mass/Vol] 0.79 mg/dL 0.70-1.30 [facility] Eosinophils Auto (Bld) [#/Vo l]Ordered By: Steven Zamora on 08-22-2022 Eosinophils (Bld) [#/Vol] 0.1 10*3/uL 0.0-0.45 [facility] Eosinophils/100 WBC Auto (Bl d)Ordered By: Steven Zamora on 08-22-2022 Eosinophils/100 WBC (Bld) 1.6 % . [facility] Erythrocyte distribution wid th Auto (RBC) [Ratio]Ordered By: Steven Zamora on 08-22-2022 Erythrocyte distribution width (RBC) [Ratio] 13.7 % 12.0-14.8 [facility] Glucose [Mass/volume] in Ser um or PlasmaOrdered By: Steven Zamora on 08-22-2022 Glucose [Mass/Vol] 133 mg/dL 70-100 [facility] Comment on above: ADA recommended refe rence rangeRandom Glucose Reference Range is dependent on time and content of last meal. Glucose of more than 200 mg/dL in a nonstressed, ambulatory subject supports the diagnosis of Diabetes Mellitus. Hematocrit Auto (Bld) [Volum e fraction]Ordered By: Steven Zamora on 08-22-2022 Hematocrit (Bld) [Volume fraction] 41.1 % 38.8-50.0 [facility] Hemoglobin [Mass/volume] in BloodOrdered By: Steven Zamora on 08-22-2022 Hemoglobin (Bld) [Mass/Vol] 13.9 g/dL 13.0-17.0 [facility] Leukocytes [#/volume] correc betty for nucleated erythrocytes in Blood by Automated counOrdered By: Steven Zamora on 08-22-2022 WBC corrected for nucl RBC Auto (Bld) [#/Vol] 8.8 10*3/uL 4.1-10.5 [facility] Lymphocytes Auto (Bld) [#/Vo l]Ordered By: Steven Zamora on 08-22-2022 Lymphocytes (Bld) [#/Vol] 1.4 10*3/uL 1.00-4.8 [facility] Lymphocytes/100 WBC Auto (Bl d)Ordered By: Steven Zamora on 08-22-2022 Lymphocytes/100 WBC (Bld) 15.9 % . [facility] MCH Auto (RBC) [Entitic mass ]Ordered By: Steven Zamora on 08-22-2022 MCH (RBC) [Entitic mass] 31.5 pg 27.5-35.2 [facility] MCHC Auto (RBC) [Mass/Vol]Or dered By: Steven Zamora on 08-22-2022 MCHC (RBC) [Mass/Vol] 33.9 g/dL 32.5-35.6 [facility] MCV Auto (RBC) [Entitic vol] Ordered By: Steven Zamora on 08-22-2022 MCV (RBC) [Entitic vol] 92.8 fL 83.5-101 [facility] Monocytes Auto (Bld) [#/Vol] Ordered By: Steven Zamora on 08-22-2022 Monocytes (Bld) [#/Vol] 0.9 10*3/uL 0.0-0.8 [facility] Monocytes/100 WBC Auto (Bld) Ordered By: Steven Zamora on 08-22-2022 Monocytes/100 WBC (Bld) 9.7 % . [facility] Neutrophils Auto (Bld) [#/Vo l]Ordered By: Steven Zamora on 08-22-2022 Neutrophils (Bld) [#/Vol] 6.4 10*3/uL 1.8-7.7 [facility] Neutrophils/100 WBC Auto (Bl d)Ordered By: Steven Zamora on 08-22-2022 Neutrophils/100 WBC (Bld) 72.5 % . [facility] No Panel InformationOrdered By: Steven Zamora on 08-22-2022 Estimated GFR (CKD-EPI) > 60.0 mL/Min [facility] Creatinine Clearance (Chem 74.81 [facility] No Panel Informationon 08-22 0.0\S\0.0 Normal 0.0-0.2 [facility] [employer] [place] [address] DO Work Phone: Comment on above: PERFORMED BY:[address] [address] [place] [place], [place] [phone] MEDICAL DIRECTORDREW REAL M.D. 0.1\S\0.1 Normal 0-0.5 [facility] [address] DO Work Phone: 0.9\S\0.9 above high threshold 0.0-0.8 [facility] [address] DO Work Phone: 1.4\S\1.4 Normal 1.00-4.8 [facility] [address] DO Work Phone: 6.4\S\6.4 Normal 1.8-7.7 [facility] [address] DO Work Phone: 0.3\S\0.3 Normal . [facility] [address] DO Work Phone: 1.6\S\1.6 Normal . [facility] [address] DO Work Phone: 9.7\S\9.7 Normal . [facility] [address] DO Work Phone: 15.9\S\15.9 Normal . [facility] [address] DO Work Phone: 72.5\S\72.5 Normal . [facility] [address] DO Work Phone: 9.6\S\9.6 Normal 6.6-10.1 [facility] [address] DO Work Phone: 162\S\162 Normal 150-450 [facility] [address] DO Work Phone: 13.7\S\13.7 Normal 12.0-14.8 [facility] [address] DO Work Phone: 33.9\S\33.9 Normal 32.5-35.6 [facility] [address] DO Work Phone: 31.5\S\31.5 Normal 27.5-35.2 [facility] [address] DO Work Phone: 92.8\S\92.8 Normal 83.5-101 [facility] [address] DO Work Phone: 41.1\S\41.1 Normal 38.8-50.0 [facility] [address] DO Work Phone: 13.9\S\13.9 Normal 13.0-17.0 [facility] [address] DO Work Phone: 4.43\S\4.43 Normal 3.90-5.60 [facility] [address] DO Work Phone: [phone] 8.8\S\8.8 Normal 4.1-10.5 [facility] [address] [address] DO Work Phone: [phone] > 60.0 Normal [facility] [address] DO Work Phone: 10.8\S\10.8 Normal 6.0-15.0 [facility] [address] DO Work Phone: [phone] 74.81\S\74.81 Normal [facility] [address] DO Work Phone: Comment on above: PERFORMED BY:[address] [address] [address] [place], [place] [phone] MEDICAL DIRECTORDREW REAL M.D. 9.0\S\9.0 Normal 8.6-10.3 [facility] [address] DO Work Phone: 26.0\S\26.0 Normal 21.0-31.0 [facility] [address] DO Work Phone: 105\S\105 Normal 98-107 [facility] [address] DO Work Phone: 3.8\S\3.8 Normal 3.5-5.1 [facility] [address] [address] DO Work Phone: 138\S\138 Normal 136-145 [facility] [address] DO Work Phone: 0.79\S\0.79 Normal 0.70-1.30 [facility] [address] DO Work Phone: [phone] 20\S\20 Normal 7-25 [facility] [address] [address] DO Work Phone: 133\S\133 above high threshold 70-100 [facility] [address] DO Work Phone: [...] RBC Auto Ql (Bld) 0.1 /100{WBC} 0-0.5 [facility] Platelet mean volume Auto (B ld) [Entitic vol]Ordered By: Steven Zamora on 08-22-2022 Platelet mean volume (Bld) [Entitic vol] 9.6 fL 6.6-10.1 [facility] Platelets Auto (Bld) [#/Vol] Ordered By: Steven Zamora on 08-22-2022 Platelets (Bld) [#/Vol] 162 10*3/uL 150-450 [facility] Potassium [Moles/volume] in Serum or PlasmaOrdered By: Steven Zamora on 08-22-2022 Potassium [Moles/Vol] 3.8 mmol/L 3.5-5.1 [facility] RBC Auto (Bld) [#/Vol]Ordere d By: Steven Zamora on 08-22-2022 RBC (Bld) [#/Vol] 4.43 10*6/uL 3.90-5.60 [facility] Serum or plasma anion gap de terminationOrdered By: Steven Zamora on 08-22-2022 Anion gap [Moles/Vol] 10.8 mmol/L 6.0-15.0 [facility] Sodium [Moles/volume] in Ser um or PlasmaOrdered By: Steven Zamora on 08-22-2022 Sodium [Moles/Vol] 138 mmol/L 136-145 [facility] Urea nitrogen [Mass/volume] in Serum or PlasmaOrdered By: Steven Zamora on 08-22-2022 Urea nitrogen [Mass/Vol] 20 mg/dL 7-25 [facility] WBC Auto (Bld) [#/Vol]Ordere d By: Steven Zamora on 08-22-2022 WBC (Bld) [#/Vol] 8.8 10*3/uL 4.1-10.5 [facility] Cholesterol [Mass/volume] in Serum or PlasmaOrdered By: Steven Zamora on 08-21-2022 Cholesterol [Mass/Vol] 132 mg/dL 140-200 [facility] Comment on above: Chol less than 200 m g/dl low riskChol 201-239 mg/dl borderline riskChol 240 mg/dl and greater high risk Cholesterol in LDL Calc [Mas s/Vol]Ordered By: Steven Zamora on 08-21-2022 Cholesterol in LDL [Mass/Vol] 62 mg/dL 0-100 [facility] Comment on above: LDL ATP III CLASSIFI CATIONLDL less than 100 mg/dL OptimalLDL 100-129 mg/dL Near or above optimalLDL 130-159 mg/dL Borderline highLDL 160-189 mg/dL HighLDL greater than 189 mg/dL Very high Cholesterol in VLDL Calc [Ma ss/Vol]Ordered By: Steven Zamora on 08-21-2022 Cholesterol in VLDL [Mass/Vol] 24 mg/dL [facility] Glucose Glucometer (BldC) [M ass/Vol]Ordered By: Steven Zamora on 08-21-2022 Glucose [Mass/Vol] 121 mg/dL [facility] Comment on above: Random Glucose Refer ence Range is dependent on time and content of last meal. Glucose of more than 200 mg/dL in a nonstressed, ambulatory subject supports the diagnosis of Diabetes Mellitus. Laboratory - Chemistry and C hemistry - challengeon 08-21-2022 Cholesterol [Mass/Vol] 132\S\132 below low threshold 140-200 -[facility] [address] DO Work Phone: Comment on above: Chol less than 200 m g/dl low risk Chol 201-239 mg/dl borderline risk Chol 240 mg/dl and greater high risk Cholesterol in LDL [Mass/Vol] 62\S\62 Normal 0-100 -[facility] [address] DO Work Phone: Comment on above: LDL ATP III CLASSIFI CATION LDL less than 100 mg/dL Optimal LDL 100-129 mg/dL Near or above optimal LDL 130-159 mg/dL Borderline high LDL 160-189 mg/dL High LDL greater than 189 mg/dL Very high No Panel InformationOrdered By: Steven Zamora on 08-21-2022 Bedside Glucose Comment Glu2: cleaned meter [facility] No Panel Informationon 08-21 Glu2: Cleaned Meter Normal [facility] [place] [facility] [address] DO Work Phone: [phone] Comment on above: PERFORMED BY:[facility] [place], [place] [phone] MEDICAL DIRECTORDREW REAL M.D. 121\S\121 Normal [facility] [address] DO Work Phone: [phone] Comment on above: Random Glucose Refer ence Range is dependent on time and content of last meal. Glucose of more than 200 mg/dL in a nonstressed, ambulatory subject supports the diagnosis of Diabetes Mellitus. Glu2: Cleaned Meter Normal [facility] [place] [facility] [address] DO Work Phone: [phone] Comment on above: PERFORMED BY:[address] [address] [address] [place], [place] [phone] MEDICAL DIRECTORDREW REAL M.D. 137\S\137 Normal [facility] [address] DO Work Phone: [phone] Comment on above: Random Glucose Refer ence Range is dependent on time and content of last meal. Glucose of more than 200 mg/dL in a nonstressed, ambulatory subject supports the diagnosis of Diabetes Mellitus. 0.0\S\0.0 Normal 0-0.5 [facility] [address] DO Work Phone: [phone] Comment on above: PERFORMED BY:[facility] [place], [place] [phone] MEDICAL DIRECTORDREW REAL M.D. 0.8\S\0.8 Normal 0.0-0.8 [facility] [address] DO Work Phone: [phone] 1.1\S\1.1 Normal 1.00-4.8 [facility] [address] DO Work Phone: [phone] 11.7\S\11.7 Normal 6.0-15.0 [facility] [address] DO Work Phone: 0.2\S\0.2 Normal . [facility] [address] DO Work Phone: 0.1\S\0.1 Normal . [facility] [address] DO Work Phone: 6.1\S\6.1 Normal . [facility] [address] DO Work Phone: 8.2\S\8.2 Normal . [facility] [address] DO Work Phone: 85.4\S\85.4 Normal . [facility] [address] DO Work Phone: 9.5\S\9.5 Normal 6.6-10.1 [facility] [address] DO Work Phone: 171\S\171 Normal 150-450 [facility] [address] DO Work Phone: 13.5\S\13.5 Normal 12.0-14.8 [facility] [address] DO Work Phone: 34.3\S\34.3 Normal 32.5-35.6 [facility] [address] DO Work Phone: 31.4\S\31.4 Normal 27.5-35.2 [facility] [address] DO Work Phone: 91.6\S\91.6 Normal 83.5-101 [facility] [address] DO Work Phone: 42.7\S\42.7 Normal 38.8-50.0 [facility] [address] DO Work Phone: 14.6\S\14.6 Normal 13.0-17.0 [facility] [address] DO Work Phone: 4.66\S\4.66 Normal 3.90-5.60 [facility] [address] DO Work Phone: 13.6\S\13.6 above high threshold 4.1-10.5 [facility] [address] [address] DO Work Phone: [phone] > 60.0 Normal [facility] [address] [address] DO Work Phone: 74.81\S\74.81 Normal [facility] [address] DO Work Phone: 9.4\S\9.4 Normal 8.6-10.3 [facility] [address] [address] DO Work Phone: 27.1\S\27.1 Normal 21.0-31.0 [facility] [address] [address] DO Work Phone: 103\S\103 Normal 98-107 [facility] [address] [address] DO Work Phone: [phone] 3.8\S\3.8 Normal 3.5-5.1 [facility] [address] [address] DO Work Phone: 138\S\138 Normal 136-145 [facility] [address] [address] DO Work Phone: 0.71\S\0.71 Normal 0.70-1.30 [facility] [address] [address] DO Work Phone: [phone] 12\S\12 Normal 7-25 [facility] [address] [address] DO Work Phone: 162\S\162 above high threshold 70-100 [facility] [address] [address] DO Work Phone: [phone] Comment on above: Random Glucose Refer ence Range is dependent on time and content of last meal. Glucose of more than 200 mg/dL in a nonstressed, ambulatory subject supports the diagnosis of Diabetes Mellitus. ADA recommended reference range 2.9\S\2.9 Normal <5.0 [facility] [address] DO Work Phone: [phone] Comment on above: PERFORMED BY:[facility] [place], [place] [phone] MEDICAL DIRECTORDREW REAL M.D. 24\S\24 Normal [place] [address] DO Work Phone: 124\S\124 Normal 0-149 [address] [address] DO Work Phone: Comment on above: TRIG ATP III CLASSIF ICATION TRIG less than 150 mg/dL Normal TRIG 150-199 mg/dL Borderline high TRIG 200-500 mg/dL High TRIG greater than 500 mg/dL Very high Standard traceable to the Center for Disease Conrtrol and Prevention (CDC) test method. 45\S\45 Normal 23-92 [address] [address] DO Work Phone: Comment on above: HDL CHOL ATP-III CLA SSIFICATION Cardiovascular Risk HDL > or equal to 60 mg/dL LOW HDL < 40 mg/dL HIGH 32703.9\S\65177.9 Critically high 0.0-20.0 [place] [address] DO Work Phone: Comment on above: Critical Result : Ca lled to and read back by: MARC BUSTILLOS at: 08/21/2022 06:30:29 by:[id number] BY:[address] [address] [address] [place], [place] [phone] MEDICAL DIRECTORDREW REAL M.D. 26049.9\S\46179.9 Critically high 0.0-20.0 [place] [address] DO Work Phone: Comment on above: Critical Result : Ca lled to and read back by: RIDGE WATERS at: 08/21/2022 04:23:36 by:[id number] BY:[address] [address] [address] [place], [place] [phone] MEDICAL DIRECTORDREW REAL M.D. 00840.3\S\12750.3 Critically high 0.0-20.0 [place] [address] DO Work Phone: Comment on above: Critical Result : Ca lled to and read back by: SALLY BUSTILLOS at: 08/21/2022 00:52:26 by:[id number] BY:[facility] [place], [place] [phone] MEDICAL DIRECTORDREW REAL M.D. Serum or plasma high density lipoprotein (HDL) cholesterol measurementOrdered By: Steven Zamora on 08-21-2022 Cholesterol in HDL [Mass/Vol] 45 mg/dL 23-92 [facility] Comment on above: HDL CHOL ATP-III CLA SSIFICATION Cardiovascular RiskHDL > or equal to 60 mg/dL LOWHDL < 40 mg/dL HIGH Serum or plasma total choles terol/high density lipoprotein (HDL) cholesterol mass ratOrdered By: Steven Zamora on 08-21-2022 Cholesterol.total/Reny sterol in HDL [Mass ratio] 2.9 {ratio} <5.0 [facility] Triglyceride [Mass/volume] i n Serum or PlasmaOrdered By: Steven Zamora on 08-21-2022 Triglyceride [Mass/Vol] 124 mg/dL 0-149 [facility] Comment on above: TRIG ATP [...] Troponin I.cardiac DL <= 0.01 ng/mL [Mass/Vol] 31267.9 pg/mL 0.0-20.0 [facility] Comment on above: Critical Result : Ca lled to and read back by: MARC BUSTILLOS at: 08/21/2022 06:30:29 by:[id number] Activated partial thrombopla stin time (aPTT) in platelet poor plasma by coagulation aOrdered By: Cirilo Wise on 08-20-2022 aPTT Coag (PPP) [Time] 25.1 s 25.1-36.5 [facility] Basophils Auto (Bld) [#/Vol] Ordered By: Cirilo Wise on 08-20-2022 Basophils (Bld) [#/Vol] 0.1 10*3/uL 0.0-0.2 [facility] Basophils/100 WBC Auto (Bld) Ordered By: Cirilo Wise on 08-20-2022 Basophils/100 WBC (Bld) 0.5 % . [facility] Calcium [Mass/volume] in Ser um or PlasmaOrdered By: Cirilo Wise on 08-20-2022 Calcium [Mass/Vol] 9.4 mg/dL 8.6-10.3 [facility] Carbon dioxide, total [Moles /volume] in Serum or PlasmaOrdered By: Cirilo Wise on 08-20-2022 CO2 [Moles/Vol] 24.3 mmol/L 21.0-31.0 [facility] Chloride [Moles/volume] in S jamin or PlasmaOrdered By: Cirilo Wise on 08-20-2022 Chloride [Moles/Vol] 105 mmol/L 98-107 [facility] Creatine kinase [Enzymatic a ctivity/volume] in Serum or PlasmaOrdered By: Cirilo Wise on 08-20-2022 CK [Catalytic activity/Vol] 115 U/L 30-223 [facility] Creatinine [Mass/volume] in Serum or PlasmaOrdered By: Cirilo Wise on 08-20-2022 Creatinine [Mass/Vol] 0.92 mg/dL 0.70-1.30 [facility] Eosinophils Auto (Bld) [#/Vo l]Ordered By: Cirilo Wise on 08-20-2022 Eosinophils (Bld) [#/Vol] 0.1 10*3/uL 0.0-0.45 [facility] Eosinophils/100 WBC Auto (Bl d)Ordered By: Cirilo Wise on 08-20-2022 Eosinophils/100 WBC (Bld) 1.3 % . [facility] Erythrocyte distribution wid th Auto (RBC) [Ratio]Ordered By: Cirilo Wise on 08-20-2022 Erythrocyte distribution width (RBC) [Ratio] 13.6 % 12.0-14.8 [facility] Glucose [Mass/volume] in Ser um or PlasmaOrdered By: Cirilo Wise on 08-20-2022 Glucose [Mass/Vol] 172 mg/dL 70-100 [facility] Comment on above: ADA recommended refe rence rangeRandom Glucose Reference Range is dependent on time and content of last meal. Glucose of more than 200 mg/dL in a nonstressed, ambulatory subject supports the diagnosis of Diabetes Mellitus. Hematocrit Auto (Bld) [Volum e fraction]Ordered By: Cirilo Wise on 08-20-2022 Hematocrit (Bld) [Volume fraction] 44.0 % 38.8-50.0 [facility] Hemoglobin [Mass/volume] in BloodOrdered By: Cirilo Wise on 08-20-2022 Hemoglobin (Bld) [Mass/Vol] 15.1 g/dL 13.0-17.0 [facility] Laboratory - CoagulationOrde red By: Cirilo Wise on 08-20-2022 PT Coag (PPP) [Time] 11.4 s 9.0-12.9 [facility] Leukocytes [#/volume] correc betty for nucleated erythrocytes in Blood by Automated counOrdered By: Cirilo Wise on 08-20-2022 WBC corrected for nucl RBC Auto (Bld) [#/Vol] 10.7 10*3/uL 4.1-10.5 [facility] Lymphocytes Auto (Bld) [#/Vo l]Ordered By: Cirilo Wise on 08-20-2022 Lymphocytes (Bld) [#/Vol] 2.8 10*3/uL 1.00-4.8 [facility] Lymphocytes/100 WBC Auto (Bl d)Ordered By: Cirilo Wise on 08-20-2022 Lymphocytes/100 WBC (Bld) 26.2 % . [facility] MCH Auto (RBC) [Entitic mass ]Ordered By: Cirilo Wise on 08-20-2022 MCH (RBC) [Entitic mass] 32.1 pg 27.5-35.2 [facility] MCHC Auto (RBC) [Mass/Vol]Or dered By: Cirilo Wise on 08-20-2022 MCHC (RBC) [Mass/Vol] 34.4 g/dL 32.5-35.6 [facility] MCV Auto (RBC) [Entitic vol] Ordered By: Cirilo Wise on 08-20-2022 MCV (RBC) [Entitic vol] 93.4 fL 83.5-101 [facility] Monocyte distribution width [Entitic volume] in Blood by AutomatedOrdered By: Cirilo Wise on 08-20-2022 Monocyte distribution width Auto (Bld) [Entitic vol] 16.35 % 0.00-20.00 [facility] Monocytes Auto (Bld) [#/Vol] Ordered By: Cirilo Wise on 08-20-2022 Monocytes (Bld) [#/Vol] 0.9 10*3/uL 0.0-0.8 [facility] Monocytes/100 WBC Auto (Bld) Ordered By: Cirilo Wise on 08-20-2022 Monocytes/100 WBC (Bld) 7.9 % . [facility] Natriuretic peptide B [Mass/ Vol]Ordered By: Cirilo Wise on 08-20-2022 Natriuretic peptide B (Bld) [Mass/Vol] 24.0 pg/mL 5-100 [facility] Neutrophils Auto (Bld) [#/Vo l]Ordered By: Cirilo Wise on 08-20-2022 Neutrophils (Bld) [#/Vol] 6.9 10*3/uL 1.8-7.7 [facility] Neutrophils/100 WBC Auto (Bl d)Ordered By: Cirilo Wise on 08-20-2022 Neutrophils/100 WBC (Bld) 64.1 % . [facility] No Panel Informationon 08-20 2529.3\S\2529.3 Critically high 0.0-20.0 [facility] [place] [facility] [address] DO Work Phone: Comment on above: Critical Result : Ca lled to and read back by: ARY BUSTILLOS at: 08/20/2022 19:45:52 by:[id number] BY:[facility] [place], [place] [phone] MEDICAL DIRECTORDREW REAL M.D. No Panel InformationOrdered By: Cirilo Wise on 08-20-2022 Estimated GFR (CKD-EPI) > 60.0 mL/Min [facility] Creatinine Clearance (Chem 65.05 [facility] Nucleated erythrocytes [Pres ence] in Blood by Automated countOrdered By: Cirilo Wise on 08-20-2022 Nucleated RBC Auto Ql (Bld) 0.1 /100{WBC} 0-0.5 [facility] Platelet mean volume Auto (B ld) [Entitic vol]Ordered By: Cirilo Wise on 08-20-2022 Platelet mean volume (Bld) [Entitic vol] 9.7 fL 6.6-10.1 [facility] Platelet poor plasma interna tional normalized ratio (INR) by coagulation assay (relatOrdered By: Cirilo Wise on 08-20-2022 INR Coag (PPP) [Relative time] 1.0 {INR} [facility] Comment on above: INR Therapeutic [...] 08-20-2022 Platelets (Bld) [#/Vol] 215 10*3/uL 150-450 [facility] Potassium [Moles/volume] in Serum or PlasmaOrdered By: Cirilo Wise on 08-20-2022 Potassium [Moles/Vol] 3.4 mmol/L 3.5-5.1 [facility] RBC Auto (Bld) [#/Vol]Ordere d By: Cirilo Wise on 08-20-2022 RBC (Bld) [#/Vol] 4.71 10*6/uL 3.90-5.60 [facility] Serum or plasma anion gap de terminationOrdered By: Cirilo Wise on 08-20-2022 Anion gap [Moles/Vol] 14.1 mmol/L 6.0-15.0 [facility] Sodium [Moles/volume] in Ser um or PlasmaOrdered By: Cirilo Wise on 08-20-2022 Sodium [Moles/Vol] 140 mmol/L 136-145 [facility] Troponin I.cardiac [Mass/vol ume] in Serum or Plasma by Detection limit <= 0.01 ng/Ordered By: Cirilo Wise on 08-20-2022 Troponin I.cardiac DL <= 0.01 ng/mL [Mass/Vol] 366.3 pg/mL 0.0-20.0 [facility] Comment on above: Critical Result : Ca lled to and read back by: SHANNON FERREIRA at: 08/20/2022 17:43:14 by:[id number] Urea nitrogen [Mass/volume] in Serum or PlasmaOrdered By: Cirilo Wise on 08-20-2022 Urea nitrogen [Mass/Vol] 15 mg/dL 7-25 [facility] WBC Auto (Bld) [#/Vol]Ordere d By: Cirilo Wise on 08-20-2022 WBC (Bld) [#/Vol] 10.7 10*3/uL 4.1-10.5 [facility] Office Visit (Cardiology)on 06-01-2022 Follow-up visit [...] Former smoker Tobacco Use Screening; Status:Complete; Done: [id number] Patient Instructions Please bring all medicines, vitamins, [...] in 1 year. Lab as scheduled with [facility] Chief Complaint OLAF BRIONES is being seen [...] to retrieve his lab work from the [facility] 5. We will see him back in [...] negative for complaint. Vitals Vital Signs Recorded: [id number] 10:52AMRecorded: [id number] 10:34AM [id number], LUE, Sitting [id number], LUE, Sitting Heart Rate72, L Radial Height5 ft 6 in Ptpxwu303 lb BMI Dahasjvkdx67.73 kg/m2 BSA Calculated1.9 Tobacco Useb) No PHQ-2 #1. Over the last 2 weeks have you felt down, depressed (more content not included)... Normal [facility] XR KUB 1 VIEWon 10-26-2021 XR KUB [...] AMNA BALDWIN Date: 2021-10-26 10:33 Normal [facility] Office Visit (Cardiology)on 09-18-2021 Follow-up visit [...] lose weight.; Status:Complete - Retrospective Authorization; Done: [id number] SocHx: Former smoker Tobacco Use Screening; Status:Complete; Done: [id number] Tobacco Use Screening; Status:Complete; Done: [id number] Patient Instructions Please bring all medicines, vitamins, [...] hydroCHLOROthiazide TABS Allergy; Rash; Recorded By: Zahida Grcae; 11/24/2020 8:51:49 AM Social History Problems Caffeine [...] Recorded: 18Sep2021 10:16AM Heart Rate64, L Radial [id number], (more content not included)... Normal [facility] Tobacco Screening.on 022 Fall risk assessment a) No falls within the last year [facility]Sand[facility] 250 DO Work Phone: Tobacco use status [facility] b) No M [facility]i-Human Patientsus Sem[employer] 250 DO Work Phone: [phone] IO EKG Electrocardiogram- 12 [place] 11-24-2020 IO EKG Electrocardiogram- 12 Lead See Scanned Document [facility]Nandaus [facility] 250 DO Work Phone: [phone] Tobacco Screening.on Fall risk assessment a) No falls within the last year [facility] 250 DO Work Phone: [phone] Tobacco use status [facility] b) No M [facility] [employer] 250 DO Work Phone: [phone] Vital Signs Date Time Vital Sign Value Performing Clinician Facility 06-25-2024 14:08-0400 Body height 172.72 cm Dav Peguero MD Work Phone: [facility] 06-25-2024 14:08-0400 Body mass index (BMI) [Ratio] 27.5 kg/m2 Dav Peguero MD Work Phone: [facility] 06-25-2024 14:08-0400 Body weight 82.1 kg Dav Peguero MD Work Phone: [facility] 06-25-2024 14:08-0400 Diastolic blood pressure 70 mm[Hg] Dav Peguero MD Work Phone: [facility] 06-25-2024 14:08-0400 Heart rate 53 /min Dav Peguero MD Work Phone: [facility] 06-25-2024 14:08-0400 Respiratory rate 18 /min Dav Peguero MD Work Phone: [facility] 06-25-2024 14:08-0400 SaO2% (BldA) [Mass fraction] 98 % Dav Peguero MD Work Phone: [facility] 06-25-2024 14:08-0400 Systolic blood pressure 144 mm[Hg] Dav Peguero MD Work Phone: [facility] 05-05-2024 12:46-0400 Body height 175.26 cm [facility] 05-05-2024 12:46-0400 Body mass index (BMI) [Ratio] 26.2 kg/m2 [facility] 05-05-2024 12:46-0400 Body temperature 98.3 [degF] [facility] 05-05-2024 12:46-0400 Body weight 80.73 kg [facility] 05-05-2024 12:46-0400 Diastolic blood pressure 71 mm[Hg] [facility] 05-05-2024 12:46-0400 Heart rate 66 /min [facility] 05-05-2024 12:46-0400 Respiratory rate 16 /min [facility] 05-05-2024 12:46-0400 SaO2% (BldA) [Mass fraction] 96 % [facility] 05-05-2024 12:46-0400 Systolic blood pressure 135 mm[Hg] [facility] 04-02-2024 13:08-0500 Body height 175.3 cm Dav Peguero MD Work Phone: [facility] 04-02-2024 13:08-0500 Body mass index (BMI) [Ratio] 27.02 kg/m2 Dav Peguero MD Work Phone: [facility] 04-02-2024 13:08-0500 Body weight 83.01 kg Dav Peguero MD Work Phone: [facility] 04-02-2024 13:08-0500 Diastolic blood pressure 72 mm[Hg] Dav Peguero MD Work Phone: [facility] 04-02-2024 13:08-0500 Heart rate 72 /min Dav Peguero MD Work Phone: [facility] 04-02-2024 13:08-0500 SaO2% (BldA) [Mass fraction] 97 % Dav Peguero MD Work Phone: [facility] 04-02-2024 13:08-0500 Systolic blood pressure 138 mm[Hg] Dav Peguero MD Work Phone: [facility] 03-27-2024 08:54-0500 Blood Pressure Location Shanna IVORY [facility] 03-27-2024 08:54-0500 Body temperature 98.6 [degF] Shanna IVORY [facility] 03-27-2024 08:54-0500 Diastolic blood pressure 76 mm[Hg] Shanna IVORY [facility] 03-27-2024 08:54-0500 Heart rate 68 /min Shannasuresh IVORY [facility] 03-27-2024 08:54-0500 Respiratory rate 16 /min Shanna IVORY [facility] 03-27-2024 08:54-0500 Systolic blood pressure 135 mm[Hg] Shanna IVORY [facility] 03-13-2024 11:12-0500 Body height 172.7 cm Ashutosh Ling MD Work Phone: [facility] 03-13-2024 11:12-0500 Body mass index (BMI) [Ratio] 28.43 kg/m2 Ashutosh Ling MD Work Phone: [facility] 03-13-2024 11:12-0500 Body weight 84.82 kg Ashutosh Ling MD Work Phone: [facility] 03-13-2024 11:12-0500 Diastolic blood pressure 58 mm[Hg] Ashutosh Ling MD Work Phone: [facility] 03-13-2024 11:12-0500 Heart rate 56 /min Ashutosh Ling MD Work Phone: [facility] 03-13-2024 11:12-0500 Systolic blood pressure 126 mm[Hg] Ashutosh Ling MD Work Phone: [facility] 11-29-2023 09:02-0400 Blood Pressure Location Shanna IVORY [facility] 11-29-2023 09:02-0400 Body temperature 98.6 [degF] Shanna IVORY [facility] 11-29-2023 09:02-0400 Diastolic blood pressure 65 mm[Hg] Shanna IVORY [facility] 11-29-2023 09:02-0400 Heart rate 65 /min Shanna IVORY [facility] 11-29-2023 09:02-0400 Respiratory rate 16 /min Shanna IVORY [facility] 11-29-2023 09:02-0400 Systolic blood pressure 129 mm[Hg] Shanna IVORY [facility] 06-26-2023 15:02-0400 Body height 172.7 cm Ashutosh Ling MD Work Phone: [facility] 06-26-2023 15:02-0400 Body mass index (BMI) [Ratio] 26.15 kg/m2 Ashutosh Ling MD Work Phone: [facility] 06-26-2023 15:02-0400 Body weight 78.02 kg Ashutosh Ling MD Work Phone: [facility] 06-26-2023 15:02-0400 Diastolic blood pressure 68 mm[Hg] Ashutosh Ling MD Work Phone: [facility] 06-26-2023 15:02-0400 Heart rate 60 /min Ashutosh Ling MD Work Phone: [facility] 06-26-2023 15:02-0400 Systolic blood pressure 120 mm[Hg] Ashutosh Ling MD Work Phone: [facility] 01-09-2023 15:38-0500 Body height 172.7 cm Ashutosh Ling MD Work Phone: [facility] 01-09-2023 15:38-0500 Body mass index (BMI) [Ratio] 26.76 kg/m2 Ashutosh Ling MD Work Phone: [facility] 01-09-2023 15:38-0500 Body weight 79.83 kg Ashutosh Ling MD Work Phone: [facility] 01-09-2023 15:38-0500 Diastolic blood pressure 76 mm[Hg] Ashutosh Ling MD Work Phone: [facility] 01-09-2023 15:38-0500 Heart rate 58 /min Ashutosh Ling MD Work Phone: [facility] 01-09-2023 15:38-0500 Systolic blood pressure 142 mm[Hg] Ashutosh Ling MD Work Phone: [facility] 10-29-2022 11:35-0400 Body height 172.72 cm Estella Siddiqui Other [facility] Other 10-29-2022 11:35-0400 Body mass index (BMI) [Ratio] 26.64 kg/m2 Estella Siddiqui Other [facility] Other 10-29-2022 11:35-0400 Body temperature 98.2 [degF] Estella Siddiqui Other [facility] Other 10-29-2022 11:35-0400 Body weight 79.47 kg Estella Siddiqui Other [facility] Other 10-29-2022 11:35-0400 Diastolic blood pressure 76 mm[Hg] Estella Siddiqui Other [facility] Other 10-29-2022 11:35-0400 Respiratory rate 18 /min Estella Siddiqui Other [facility] Other 10-29-2022 11:35-0400 SaO2% (BldA) [Mass fraction] 98 % Estella Siddiqui Other [facility] Other 10-29-2022 11:35-0400 Systolic blood pressure 140 mm[Hg] Estella Siddiqui Other [facility] Other 09-05-2022 13:02-0400 Body height 167.64 cm Nahomi Hernandez Work Phone: [employer] [employer] 250 DO Work Phone: 09-05-2022 13:02-0400 Body mass index (BMI) [Ratio] 27.6 kg/m2 Nahomi Hernandez Work Phone: [employer] [employer] 250 DO Work Phone: 09-05-2022 13:02-0400 Body surface area Derived from formula 1.87 m2 Nahomi Bowers David Work Phone: [facility] 250 DO Work Phone: 09-05-2022 13:02-0400 Body weight 77.57 kg Nahomi Bowers David Work Phone: [facility] 250 DO Work Phone: 09-05-2022 13:02-0400 Diastolic blood pressure 54 mm[Hg] Nahomi Hernandez Work Phone: [facility] 250 DO Work Phone: 09-05-2022 13:02-0400 Heart rate 68 /min Nahomi Hernandez Work Phone: [facility] 250 DO Work Phone: 09-05-2022 13:02-0400 Systolic blood pressure 126 mm[Hg] Nahomi Hernandez Work Phone: [facility] 250 DO Work Phone: 08-27-2022 03:30-0400 Diastolic blood pressure 76 mm[Hg] [facility] 08-27-2022 03:30-0400 Heart rate 74 /min [facility] 08-27-2022 03:30-0400 Mean blood pressure 87 mm[Hg] [facility] 08-27-2022 03:30-0400 Respiratory rate 14 /min [facility] 08-27-2022 03:30-0400 SaO2% (BldA) [Mass fraction] 96 % [facility] 08-27-2022 03:30-0400 Systolic blood pressure 110 mm[Hg] [facility] 08-27-2022 03:00-0400 Diastolic blood pressure 80 mm[Hg] [facility] 08-27-2022 03:00-0400 Heart rate 80 /min [facility] 08-27-2022 03:00-0400 Mean blood pressure 97 mm[Hg] [facility] 08-27-2022 03:00-0400 Respiratory rate 15 /min [facility] 08-27-2022 02:30-0400 Diastolic blood pressure 73 mm[Hg] [facility] 08-27-2022 02:30-0400 Heart rate 96 /min [facility] 08-27-2022 02:30-0400 Mean blood pressure 92 mm[Hg] [facility] 08-27-2022 02:30-0400 Respiratory rate 20 /min [facility] 08-27-2022 02:30-0400 SaO2% (BldA) [Mass fraction] 98 % [facility] 08-27-2022 02:30-0400 Systolic blood pressure 130 mm[Hg] [facility] 08-26-2022 19:17-0400 Respiratory rate 18 /min [facility] 08-26-2022 18:11-0400 Respiratory rate 18 /min [facility] 08-26-2022 17:07-0400 Body temperature 97.7 [degF] [facility] 08-26-2022 17:07-0400 Heart rate 83 /min [facility] 08-26-2022 17:07-0400 Respiratory rate 18 /min [facility] 08-22-2022 15:50-0400 Body temperature 98.2 [degF] [facility] 08-22-2022 15:50-0400 Diastolic blood pressure 64 mm[Hg] [facility] 08-22-2022 15:50-0400 Heart rate 64 /min [facility] 08-22-2022 15:50-0400 Respiratory rate 18 /min [facility] 08-22-2022 15:50-0400 SaO2% (BldA) [Mass fraction] 99 % [facility] 08-22-2022 15:50-0400 Systolic blood pressure 124 mm[Hg] [facility] 08-22-2022 05:48-0400 Body weight 81 kg [facility] 08-21-2022 10:27-0400 70 1 Jame Musaight Work Phone: [facility] 250 DO Work Phone: Comment on above: [id number] 08-20-2022 18:32-0400 Body height 172.72 cm [facility] 08-20-2022 17:13-0400 Heart rate 42 /min [facility] 08-20-2022 16:38-0400 Diastolic blood pressure 60 mm[Hg] [facility] 08-20-2022 16:38-0400 Respiratory rate 18 /min [facility] 08-20-2022 16:38-0400 SaO2% (BldA) [Mass fraction] 98 % [facility] 08-20-2022 16:38-0400 Systolic blood pressure 123 mm[Hg] [facility] 08-20-2022 16:25-0400 Body height 172.72 cm [facility] 08-20-2022 16:25-0400 Body temperature 97.6 [degF] [facility] 08-20-2022 16:25-0400 Body weight 81.5 kg [facility] 10-27-2021 08:55-0400 Blood Pressure Location Shanna IVORY [facility] 10-27-2021 08:55-0400 Diastolic blood pressure 76 mm[Hg] Shanna IVORY [facility] 10-27-2021 08:55-0400 Heart rate 64 /min Shanna IVORY [facility] 10-27-2021 08:55-0400 Respiratory rate 16 /min Shanna IVORY [facility] 10-27-2021 08:55-0400 Systolic blood pressure 125 mm[Hg] Shanna IVORY [facility] 03-07-2021 15:22-0500 Diastolic blood pressure 78 mm[Hg] Jame Barraza Work Phone: [facility] 250 DO Work Phone: 03-07-2021 15:22-0500 Systolic blood pressure 139 mm[Hg] Jame Barraza Work Phone: [facility] 250 DO Work Phone: 03-07-2021 14:47-0500 Body height 167.64 cm Jame Barraza Work Phone: [facility] 250 DO Work Phone: 03-07-2021 14:47-0500 Body mass index (BMI) [Ratio] 28.73 kg/m2 Jame Barraza Work Phone: [facility] 250 DO Work Phone: 03-07-2021 14:47-0500 Body surface area Derived from formula 1.9 m2 Jame Barraza Work Phone: [facility] 250 DO Work Phone: 03-07-2021 14:47-0500 Body weight 80.74 kg Jame Barraza Work Phone: [facility] 250 DO Work Phone: 03-07-2021 14:47-0500 Diastolic blood pressure 82 mm[Hg] Jame Barraza Work Phone: [facility] 250 DO Work Phone: 03-07-2021 14:47-0500 Heart rate 84 /min Jame Bowers Barraza Work Phone: [facility] 250 DO Work Phone: 03-07-2021 14:47-0500 Systolic blood pressure 172 mm[Hg] Jame Bowers Barraza Work Phone: [facility] 250 DO Work Phone: 11-24-2020 08:51-0400 Body height 167.64 cm Jame Bowers Barraza Work Phone: [facility] 250 DO Work Phone: 11-24-2020 08:51-0400 Body mass index (BMI) [Ratio] 28.08 kg/m2 Jame Bowers Barraza Work Phone: [facility] 250 DO Work Phone: 11-24-2020 08:51-0400 Body surface area Derived from formula 1.89 m2 Jame Bowers Barraza Work Phone: [facility] 250 DO Work Phone: 11-24-2020 08:51-0400 Body weight 78.93 kg Jame Bowers Barraza Work Phone: [facility] 250 DO Work Phone: 11-24-2020 08:51-0400 Diastolic blood pressure 82 mm[Hg] Jame Elissa Barraza Work Phone: [facility] 250 DO Work Phone: 11-24-2020 08:51-0400 Diastolic blood pressure 80 mm[Hg] Jame Elissa Barraza Work Phone: [facility] 250 DO Work Phone: 11-24-2020 08:51-0400 Heart rate 66 /min Jame Elissa Barraza Work Phone: [facility] 250 DO Work Phone: 11-24-2020 08:51-0400 Systolic blood pressure 136 mm[Hg] Jame Barraza Work Phone: [facility] 250 DO Work Phone: 11-24-2020 08:51-0400 Systolic blood pressure 138 mm[Hg] Jame Elissa Barraza Work Phone: [facility] 250 DO Work Phone: Encounters Encounter Date Encounter Type Care Provider Facility Start: 04-02-2025 ambulatory Shanna Yousif ty:[facility] Start: 08-17-2024 End: 08-17-2024 ambulatory Alonzo Briscoe MD Facility:[facility] Start: 07-31-2024 End: 07-31-2024 Clinisync Result Encounter Generic External Data Provider [facility] External Department Unsolicited Start: 07-31-2024 End: 07-31-2024 Clinisync Result Encounter Generic External Data Provider [facility] External Department Unsolicited Start: 06-25-2024 End: 06-25-2024 ambulatory Dav Peguero Facility:[facility] Start: 06-25-2024 End: 06-25-2024 Patient encounter procedure Dav Peguero MD Work Phone: [facility] Physician [facility] Work Phone: Start: 05-05-2024 End: 05-05-2024 ambulatory [facility] Work Phone: Start: 05-05-2024 End: 05-05-2024 Patient encounter procedure [facility] Physician [facility] Work Phone: Start: 04-02-2024 End: 04-02-2024 Bamboo flowsjerry Peguero MD Work Phone: [facility] Start: 04-02-2024 End: 04-02-2024 Bamboo flowsjerry Peguero MD Work Phone: [facility] Start: 04-02-2024 End: 04-02-2024 Assay of hemosiderin, quant Dav Peguero MD Work Phone: [facility] Start: 04-02-2024 End: 04-02-2024 Patient encounter procedure Dav Peguero MD Work Phone: [facility] Comment on above: Routine general medi tawnya examination at [facility] facility (Primary Dx); Benign essential hypertension ([facility]); Nocturia; Medicare annual wellness visit, initial; Type 2 diabetes mellitus without complication, without long-term current use of insulin (CMS/[facility]); Mixed hyperlipidemia (CMS/[facility]); Sciatica, unspecified laterality; 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 ([facility]/HCC) Start: 04-02-2024 End: 04-02-2024 ambulatory DAV PEGUERO Not Available Start: 03-27-2024 End: 03-27-2024 ambulatory Shanna IVORY Facility: [place] Start: 03-27-2024 End: 03-27-2024 Patient encounter procedure Shanna IVORY [facility] Start: 03-13-2024 End: 03-13-2024 Office outpatient visit 25 minutes Ashutosh Ling MD Work Phone: [facility] Comment on above: Arteriosclerotic car diovascular disease (Primary Dx); Post PTCA; Mixed hyperlipidemia; Abnormal EKG; Essential hypertension; Easy bruisability; Never smoked tobacco; BMI 28.0-28.9,adult Start: 12-13-2023 End: 12-13-2023 Clinisync Result Encounter Generic External Data Provider [facility] External Department Unsolicited Start: 12-13-2023 End: 12-13-2023 Clinisync Result Encounter Generic External Data Provider [facility] External Department Unsolicited Start: 11-29-2023 End: 11-29-2023 ambulatory Shanna IVORY Facility:[facility] Start: 11-29-2023 End: 11-29-2023 Patient encounter procedure Shanna IVORY [facility] Start: 06-26-2023 End: 06-26-2023 Office outpatient visit 25 minutes Ashutosh Ling MD Work Phone: [facility] Comment on above: Essential hypertensi on (Primary Dx); Arteriosclerotic cardiovascular disease; Abnormal EKG; Mixed hyperlipidemia; Post PTCA; BMI 26.0-26.9,adult; Never smoked tobacco Start: 06-26-2023 End: 06-26-2023 ambulatory [facility] Start: 06-18-2023 End: 06-18-2023 ambulatory LUCINDA Martinez ARNCHO Not Available Start: 05-21-2023 End: 05-21-2023 ambulatory DAV Martinez SUDHIR Not Available Start: 03-12-2023 Patient encounter procedure Generic Provider [facility] Start: 01-09-2023 End: 01-09-2023 Office outpatient visit 25 minutes Ashutosh Ling MD Work Phone: [facility] Comment on above: Arteriosclerotic car diovascular disease (Primary Dx); Abnormal EKG; Mixed hyperlipidemia; Primary hypertension; Post PTCA; Essential hypertension; BMI 26.0-26.9,adult; Easy bruisability Start: 10-29-2022 End: 10-29-2022 ambulatory Estella Siddiqui Other [facility] Other Start: 10-29-2022 Office outpatient ne w 10 minutes Estella Siddiqui [facility] [place] Start: 10-01-2022 Rx Renewal Nahomi Hernandez Work Phone: [facility] 250 DO Work Phone: Start: 09-14-2022 Rx Renewal Nahomi Hernandez Work Phone: [facility] 250 DO Work Phone: Start: 09-06-2022 Telephone encounter Justine Katie R N U[facility] Comment on above: Patient Update Start: 09-05-2022 Office outpatient vi sit 25 minutes Nahomi Elissa David Work Phone: [facility] 250 DO Work Phone: Start: 09-05-2022 Patient encounter procedure Nahomi Elissa David Work Phone: [facility] 250 DO Work Phone: Start: 09-05-[address] Ashutosh Ling Facility: Start: 09-05-2022 End: 09-05-2022 Patient encounter procedure Alexandre KOROMA [facility] Start: 09-04-2022 Telephone encounter Deborah Ibarra RN NOC Comment on above: Follow Up Phone Call (All Clear) Start: 08-27-2022 End: 08-31-2022 Evaluation and management of inpatient DAVID ANDREWS Facility:[facility] Start: 08-26-2022 End: 08-27-2022 Emergency department patient visit Keith Panchal [facility] Start: 08-24-2022 Chart Update Jame Barraza Work Phone: [facility] 250 DO Work Phone: Start: 08-22-[address] Jame Barraza Facility:[id number] Start: 08-21-[address] Jame Barraza Facility:[id number] Start: 08-20-2022 End: 08-22-2022 Evaluation and management of inpatient [facility] Work Phone: Start: 08-20-2022 Admission to [facility] Work Phone: Start: 08-20-2022 ambulatory NON STAFF [facility] Work Phone: Start: 08-20-[address] Ben Zamora Facility:[id number] Start: 08-20-[address] Jame Barraza Facility:[id number] Start: 06-01-[address] Nahomi Hernandez Facility: Start: 10-27-2021 End: 10-27-2021 Patient encounter procedure Shanna IVORY [facility] Start: 10-26-2021 End: 10-27-[address] SHANNA IVORY Facility:[id number] Start: 05-04-2021 ambulatory DOMINGUEZ GUTIERREZ Faci lity:[facility]1 Start: 03-07-2021 Office outpatient vi sit 25 minutes Jame Barraza Work Phone: [facility] 250 DO Work Phone: Start: 11-29-2020 Chart Update Jame Barraza Work Phone: [facility] 250 DO Work Phone: Start: 11-28-2020 Patient encounter procedure Jame Barraza Work Phone: [facility] [address] [place] Work Phone: Start: 11-24-2020 AUDIT Jame Barraza Work Phone: [facility] 250 DO Work Phone: Procedures Date Procedure [...] Comment: Speci men Type: BLOOD SPECIMENOrdering Facility: [facility] Address: [address] [place], [place] [id number] Performed By: #### T SCR ####CC MAIN BLOOD BANKCLIA [id number] [address] Start: 08-29-2022 Cysto w/irrig & evac multple obstructing clots Shanna IVORY Start: 08-29-2022 Trurl rescj residual/regrowth obstr prstate tiss Shanna IVORY Start: 08-27-2022 Antibody screen DAVID PEREZ Comment on above: Order Comment: Speci men Type: BLOOD SPECIMENOrdering Facility: [facility] Address: [address] [place] [address] Performed By: #### T SCR ####CC MAIN BLOOD BANKIA [id number] [address] Start: 08-20-[address] [...] DTaP/Tdap/Td Vaccines (2 - Td or Tdap) [facility] Start: 03-27-2031 Urine microalbumin profile DTAP,TDAP,TD (2 - Td or Tdap) [facility] Start: 04-03-2025 Urine screening for protein Diabetes: Urine Protein Screening [facility] Start: 04-02-2025 Medicare Annual Well ness (AWV) Medicare Annual Wellness (AWV) [facility] Start: 11-27-2024 End: 11-27-2024 Patient encounter procedure 11/27/2024 10:50 AM EDT Office Visit [facility] [address] [facility] [address] [place] [id number] Ashutosh Ling MD [address] [facility] [address], [address] [place] [address] [facility] Start: 06-30-2024 Hemoglobin A1c measurement Diabetes: Hemoglobin A1C [facility] Start: 06-25-2024 [facility] Start: 04-02-2024 End: 04-02-2025 CBC W Auto Differential panel - Blood CBC and differential Lab Routine Benign essential hypertension (CMS/HCC) Nocturia Medicare annual wellness visit, initial Type 2 diabetes mellitus without complication, without long-term current use of insulin (CMS/HCC) Mixed hyperlipidemia (CMS/HCC) Expected: 04/02/2024 (Approximate), Expires: 04/02/2025 [facility] Work Phone: Comment on above: Expected: 04/02/2024 (Approximate), Expires: 04/02/2025 Start: 04-02-2024 End: 04-02-2025 Comprehensive metabolic 2000 panel - Serum or Plasma Comprehensive metabolic panel Lab Routine Benign essential hypertension (CMS/HCC) Nocturia Medicare annual wellness visit, initial Type 2 diabetes mellitus without complication, without long-term current use of insulin (CMS/HCC) Mixed hyperlipidemia (CMS/HCC) Expected: 04/02/2024 (Approximate), Expires: 04/02/2025 [facility] Comment on above: Expected: 04/02/2024 (Approximate), Expires: 04/02/2025 Start: 04-02-2024 End: 04-02-2025 Lipid 1996 panel - Serum or Plasma Lipid panel Lab Routine Medicare annual wellness visit, initial Mixed hyperlipidemia (CMS/HCC) Expected: 04/02/2024 (Approximate), Expires: 04/02/2025 [facility] Comment on above: Expected: 04/02/2024 (Approximate), Expires: 04/02/2025 Start: 04-02-2024 End: 04-02-2025 Microalbumin/Creatinine panel in random Urine Microalbumin / creatinine urine ratio Lab Routine Medicare annual wellness visit, initial Type 2 diabetes mellitus without complication, without long-term current use of insulin (CMS/HCC) Expected: 04/02/2024 (Approximate), Expires: 04/02/2025 [facility] Comment on above: Expected: 04/02/2024 (Approximate), Expires: 04/02/2025 Start: 04-02-2024 End: 04-02-2025 Prostate specific Ag [Mass/volume] in Serum or Plasma PSA Lab Routine Nocturia Medicare annual wellness visit, initial Expected: 04/02/2024 (Approximate), Expires: 04/02/2025 [facility] Comment on above: Expected: 04/02/2024 (Approximate), Expires: 04/02/2025 Start: 04-02-2024 End: 04-02-2024 Patient encounter procedure 04/02/2024 1:00 PM EST Office Visit [facility] [address] [facility] [address] [place] [address] Dav Peguero MD [address] [facility] [address] [place] [address] Arrived [facility] Comment on above: Arrived Start: 03-15-2024 Urine screening for protein Diabetes: Urine Protein Screening [facility] Start: 03-13-2024 End: 03-13-2024 Patient encounter procedure 03/13/2024 11:20 AM EST Office Visit [address] [address] Ashutosh Ling MD [address] [facility] [address], [facility] [address] [place] [address] [facility] Start: 03-12-2024 Medicare Annual Well ness (AWV) Medicare Annual Wellness (AWV) [facility] Start: 10-20-2023 COVID-19 Vaccine ( season) COVID-19 Vaccine ( season) [facility] Start: 10-20-2023 Influenza vaccination Influenza Vacc ine (#1) [facility] Start: 09-17-2023 Hemoglobin A1c measurement Diabetes: Hemoglobin A1C [facility] Start: 06-26-2023 End: 06-26-2023 Patient encounter procedure 06/26/2023 3:10 PM EDT Office Visit [address] [phone] Ashutosh Ling MD [address] [facility] [address], [address] [address] [facility] Start: 06-07-2023 FUV, Provider: Ashutosh Ling, Status: Pen, Time: 11:20 AM FUV, Provider: Ashutosh Ling, Status: Pen, Time: 11:20 AM [facility] [address] DO Work Phone: Start: 01-09-2023 FUV, Provider: Ashutosh Ling, Status: Pen, Time: 3:30 PM FUV, Provider: Ashutosh Ling, Status: Pen, Time: 3:30 PM [facility] 250 DO Work Phone: Start: 10-19-2022 COVID-19 Vaccine ( season) COVID-19 Vaccine () [facility] Start: 10-19-2022 Influenza vaccination INFLUENZA (#1) [facility] Start: 09-05-2022 FUV, Provider: Ashutosh Ling, Status: Pen, Time: 12:50 PM FUV, Provider: Ashutosh Ling, Status: Pen, Time: 12:50 PM [facility] DO Work Phone: Start: 08-22-2022 [facility] Start: 08-20-2022 Consultation [facility] Start: 08-20-2022 Referral to cardiac rehabilitation program [facility] Start: 08-20-2022 [facility] Start: 08-20-2022 End: 08-20-2022 Hospital admission [facility] Start: 02-18-2022 ADVANCE DIRECTIVE DISCUSSION ADVANCE DIRECTIVE DISCUSSION [facility] Start: 02-18-2022 DEPRESSION ASSESSMENT DEPRESSION ASS ESSMENT [facility] Start: 08-30-2021 FUV, Provider: Ashutosh Ling, Status: Pen, Time: 2:30 PM FUV, Provider: Ashutosh Ling, Status: Pen, Time: 2:30 PM [facility] 250 DO Work Phone: Start: 04-03-2021 COVID-19 VACCINE (4 - Pfizer series) COVID-19 VACCINE (4 - Pfizer series) [facility] Start: 03-07-2021 FUV, Provider: Ashutosh Ling, Status: Pen, Time: 2:50 PM FUV, Provider: Ashutosh Ling, Status: Pen, Time: 2:50 PM [facility] DO Work Phone: Start: 11-28-2020 EVENT ELIEZER, Provider : FADUMO BENSON APPLICATION SYSTEMS ENGINEER 1,[id number], Status: Pen, Time: 10:30 AM EVENT ELIEZER, Provider: FADUMO BENSON APPLICATION SYSTEMS ENGINEER 1,[id number], Status: Pen, Time: 10:30 AM [facility] DO Work Phone: Start: 2020 RSV High Risk: (Elde rly (60+) or Population) (1 - 1-dose 75+ series) RSV High Risk: (Elderly (60+) or Population) (1 - 1-dose 75+ series) [facility] Start: 2005 RSV patient s and/or patients aged 60+ years (1 - 1-dose 60+ series) RSV patients and/or patients aged 60+ years (1 - 1-dose 60+ series) [facility] Start: 06-18-1995 SHINGRIX VACCINE (1 of 2) SHINGRIX VACCINE (1 of 2) [facility] Start: 06-18-1995 Zoster Vaccines (1 of 2) Zoster Vacc tosha (1 of 2) [facility] Start: 06-18-1963 ANNUAL PCP TEAM MILLED LUMBER 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 ATIF DISEASE VISIT ANNUAL PCP TEAM CHRONIC DISEASE VISIT [facility] Start: 06-18-1963 BP CONTROLLED (<130/80) BP CONTROLLE D (<130/80) [facility] Start: 06-18-1963 Diabetes mellitus screening Diabetes Screening [facility] Start: 06-18-1963 Hepatitis B surface antibody level LDL CHOLESTEROL [facility] Start: 06-18-1963 HEPATITIS C SCREENING HEPATITIS C [facility] Start: 06-18-1963 Hepatitis C screening Hepatitis C [facility] Start: 06-18-1955 3 comp foot exam completed DIABETIC FOOT EXAM [facility] Start: 06-18-1955 Glaucoma screening Diabetes: R etinopathy Screening [facility] Start: 06-18-1955 Hepatitis B screening URINE AL BUMIN:CREATININE RATIO [facility] Start: 06-18-1955 Hepatitis C antibody , confirmatory test DILATED RETINAL EXAM [facility] Start: 1950 Hemoglobin A1c/Hemoglobin.total in Blood HBA1C [facility] Start: 1945 Lipid panel Lipid Panel [facility] Start: 1945 Medicare Annual Well ness Visit Medicare Annual Wellness Visit (AWV) [facility] Patient Education Coronary Angio plasty (DC) Coronary Stenting (DC) Angina (DC) Chest Pain (DC) Drug Eluting Stents [facility] Work Phone: Patient referral [facility] Work Phone: Immunizations Immunization Date Immunization Notes Care Provider [facility] 11-18-2023 influenza, high dose seasonal, preservative-free Dav Peguero MD Work Phone: [facility] 11-06-2023 influenza, seasonal, injectable Ashutosh Ling MD Work Phone: [facility] Work Phone: 11-19-2022 influenza virus vaccine, unspecified formulation Shanna IVORY [facility] 11-19-2022 Influenza, High-dose Seasonal, Quadrivalent, Preservative Free Generic Provider [facility] 02-18-2022 influenza nasal, unspecified formulation Deborah Ibarra RN [facility] 02-18-2022 influenza virus vaccine, live, attenuated, for intranasal use Generic Provider [facility] 12-26-2021 Fluad Quadrivalent 0 .5 ML Intramuscular Prefilled Syringe Jame Barraza Work Phone: [facility] 12-26-2021 influenza virus vaccine, unspecified formulation Shanna IVORY [facility] 12-26-2021 influenza, high dose seasonal, preservative-free Ashutosh Ling MD Work Phone: [facility] Work Phone: 03-27-2021 tetanus toxoid, redu shruti diphtheria toxoid, and acellular pertussis vaccine, adsorbed Deborah Ibarra RN [facility] 02-06-2021 Pfizer-BioNTech COVID-19 Vacc 30 MCG/0.3ML Intramuscular Suspension Jame Barraza Work Phone: [facility] 11-18-2020 influenza nasal, unspecified formulation Deborah Ibarra RN [facility] 11-10-2020 Fluad Quadrivalent 0 .5 ML Intramuscular Prefilled Syringe Jame Barraza Work Phone: [facility] 11-10-2020 influenza virus vaccine, unspecified formulation Shanna IVORY [facility] 04-12-2020 Pfizer-BioNTech COVID-19 Vacc 30 MCG/0.3ML Intramuscular Suspension Jame Barraza Work Phone: [facility] Comment on above: Result Comment: 2022: TPV70 03-28-2020 COVID-19 original vaccine, age 12+ yr, monovalent (PFIZER-BIONTECH - PURPLE TOP) Deborah Ibarra RN [facility] 03-22-2020 Pfizer-BioNTech COVID-19 Vacc 30 MCG/0.3ML Intramuscular Suspension Jame Barraza Work Phone: [facility] Comment on above: Result Comment: 2022: TPV70 03-21-2020 SARS-CoV-2 (COVID-19 ) Ad26 vaccine, recombinant Shanna IVORY [facility] Comment on above: Result Comment: unab le to give exact dates 12-16-2019 influenza (HD-IIV4) vaccine, age 65+ yr, high dose, quadrivalent, PF (FLUZONE HIGH-DOSE) Deborah Ibarra RN [facility] 12-16-2018 AS03 adjuvant Deborah Ibarra RN [facility] 12-24-2017 AS03 adjuvant Deborah Ibarra RN [facility] 12-21-2016 influenza, high dose seasonal, preservative-free Deborah Ibarra RN [facility] 02-19-2016 pneumococcal polysaccharide vaccine, 23 valent Jame Barraza Work Phone: [facility] Comment on above: Series: 11-23-2015 influenza virus vaccine, unspecified formulation Shanna IVORY [facility] 11-23-2015 influenza, high dose seasonal, preservative-free Jame Barraza Work Phone: [facility] 10-20-2015 influenza nasal, unspecified formulation Deborah Ibarra RN [facility] 11-06-2014 influenza nasal, unspecified formulation Deborah Ibarra RN [facility] 11-06-2014 pneumococcal conjuga te vaccine, 13 valent Deborah Ibarra RN [facility] Payers Date Payer Category Payer Self-pay 2022 Medicare (Managed Care) [id number]. [id number] 2022 Medicare [id number] 2022 Medicare [id number] 1959 Medicare [id number] 1959 Private Health Insurance [id number] 1945 Unknown [id number] [id number] 1945 Unknown [id number] 2.840.1.884752.3.579.2.593 1945 Unknown [id number] 2..840.1.229382.3.579.2.356 1945 Unknown [id number] 2.16.840.1.099177.3.579.2.356 1945 Unknown [id number] 2.16.840.1.067538.3.579.2.356 1945 Unknown [id number] 2.16.840.1.511852.3.579.2.356 1945 Unknown [id number] 2.16.840.1.763822.3.579.2.356 1945 Unknown [id number] 2.16.840.1.491044.3.579.2.356 1945 Unknown [id number] 2.16.840.1.836671.3.579.2.1244 1945 Unknown [id number] 2.16.840.1.210995.3.579.2.727 1945 Unknown [id number] 2.16.840.1.621759.3.579.2.727 1945 Unknown [id number] 2.16.840.1.193187.3.579.2.727 1945 Unknown [id number] 2.16.840.1.873162.3.579.2.1259 1945 Unknown [id number] 2.16.840.1.661802.3.579.2.1259 1945 Unknown [id number] 2.16.840.1.732491.3.579.2.1259 1945 Unknown [id number] 2.16.840.1.729629.3.579.2.196 Private Health Insurance [facility] [id number] Unknown Unknown [id number] [id number] Social History Date Type Detail Facility Start: 01-08-2023 End: 04-02-2024 No alcohol use No alcohol use [facility] Work Phone: Comment on above: 1 cup of coffee edelmira y; former cigar smoker; Start: 10-21-2020 End: 10-31-2022 Tobacco smoking status Never smoked tobacco (finding) [facility] Start: 01-08-2023 End: 04-02-2024 Sex Assigned At Male [facility] Start: 1945 Sex Assigned At Male F [facility] Tobacco smoking stat [facility] Tobacco smoking consumption unknown [facility] Start: 1945 Sex Assigned At Not on file C [facility] Start: 01-08-2023 [facility] Work Phone: History of tobacco use Current smoker [facility] Work Phone: History of tobacco use [facility] Work Phone: Start: 10-31-2022 End: 01-08-2023 Tobacco use and exposure Smokeless tobacco non-user [facility] Work Phone: Start: 01-09-2023 End: 06-26-2023 Alcohol intake Ex-drinker (finding) [facility] Work Phone: Start: 12-30-2022 End: 03-13-2024 Exposure to SARS-CoV-2 (event) Not sure [facility] Tobacco smoking status Never [facility] Start: 06-18-2023 End: 04-02-2024 Alcoholic beverage intake Defer [facility] Start: 03-13-2024 Alcoholic beverage intake Lifetime non-drinker (finding) [facility] Work Phone: Start: 05-05-2024 End: 06-26-2024 Sex Male (finding) [facility] Medical Equipment Procedure Code Equipment Code Equipment Origin al Text Equipment Identifier Dates CL STENT BISHOP FRONTIER 3.0 X 26 FDA Start: 08-20-2022 Femoral artery closure plug/patch, synthetic polymer [id number] FDA Start: 08-20-2022 CL STENT BISHOP FRONTIER 3.0 X 26 FDA Start: 08-20-2022 CL STENT BISHOP FRONTIER 3.0 X 26 FDA Start: 08-20-2022 CL STENT BISHOP FRONTIER 3.0 X 26 FDA Start: 08-20-2022 Goals Date Patient Goal Desired Activity /State Functional Status Date Assessment Result Facility 03-27-2024 Functional Status N/A [facility] 11-29-2023 Functional Status N/A [facility] 08-26-2022 Functional Status N/A [facility] 08-22-2022 Functional status Patient at Baseline [facility] Work Phone: 10-27-2021 Functional Status N/A [facility] Mental Status Date Assessment Result Facility 08-22-2022 Cognitive function Cognitive Sta tus Patient at Baseline [facility] Work Phone: Clinical Notes 10-27-2021 to 05-05-2024 Note Date & Type Note Facility 05-05-2024 Evaluation note Diagnosis Onset Date Resolution Bilateral impacted cerumen noneactive May 05, 2024 12:34pm [facility] Work Phone: 1(693) 464-383003-18-2025 Evaluation note* Diagnosis Onset Date Resolution Status Admit Date Bilateral impacted cerumen noneactiv e May 05, 2024 12:34pm Coronary artery disease involving solomon coronary artery of solomon heart wi acute June 1:39pm Essential (primary) hypertension acute June 25, 2024 1: 39pm Mixed hyperlipidemia acute June 25, 2024 1:39pm S/P coronary artery stent placement acute June 25, 2024 1: 39pm [facility] Work Phone: 1(178) 203-122802-13-2025 History of Present illness Narrative* Dav Peguero [...] without complication, without long-term current useof insulin (CMS/[facility]) No Tobacco use Follow ADA 1800 diet [...] by direct observation Three Word Registration: Banana, [place], Chair Clock Drawing: Normal Clock - 2 Three Word Recall: 1/3 words correct - 1 Total Score (0-5 Points): 3 Pain Assessment Pain Score: 5 - Moderate pain Advance Care Planning Do you have a living will?: Yes Do you have a medical power of document review attorney?: Yes Objective : BP 138/72 Pulse 72 [...] Addressed This Visit 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 ([facility]) Relevant Orders Ambulatory referral to Cardiology Type 2 diabetes mellitus without complication, without long-term current use of insulin ([facility]) No Tobacco use Follow ADA 1800 diet [...] POCT Glycated hemoglobin, total (Completed) Mixed hyperlipidemia ([facility]) Relevant Orders CBC and differential Comprehensive metabolic [...] Cardiology Please fax to sarika erazo in [facility] on [address] Standing Status: Future Standing Expiration Date: 09/30/2024 Referral Priority: Routine Referral Type: Consultation Referral Reason: Specialty Services Required Requested Specialty: Cardiology Number of Visits Requested: 1 POCT Glycated hemoglobin, total Electronically signed by Dav Peguero MD on April 02, 2024 documented [id number] Hospital Discharge instructions Patient Education 03/27/2024 09:23:01 [...] include: ?8 oz (237 mL) of milk, osdydty-slfcmggnxwuv-tpwuc milk, and calcium- fortifiedfruit juice. Calcium-fortified means [...] ?Spinach (cooked), rhubarb, beets, sweet potatoes, and Tristanian chard. ?Peanuts. ?Potato chips, upper sorbian fries, and baked potatoes with skin on. ?Nuts and nut products. ?Chocolate. If you regularly take a diuretic medicine, make sure to eat at least 1 or 2 servings of fruits or vegetables that are high in potassium each day. These include: ?Avocado. ?Banana. ?Mingo, prune, carrot, or tomato juice. ?Baked potato. [...] magnesium, fish oil, or vitamin B6. Take hldb-rwu-eznlbkk and prescription medicines only as told by [...] Casseroles. Pizza. Lasagna. Frozen meals. Potato chips. Khmer fries. The items listed above may not [...] Document Reviewed: 05/17/2022 Elsevier Patient Education 2023 [employer]. Follow Up Care 11/29/2023 09:51:27 With:CACHORRO HAHN, Shanna Sánchez, URL Address: [address] [place] [address] [place] [address]- When: Unknown [facility] Franca 02-07-2025 NotePatient Education Nephrology Dietary [...] ? 8 oz (237 mL) of milk, hxgpshf-tdecwpssnrvq-ksvby milk, and calcium- fortifiedfruit juice. Calcium-fortified means [...] Spinach (cooked), rhubarb, beets, sweet potatoes, and Tristanian chard. ? Peanuts. ? Potato chips, upper sorbian fries, and baked potatoes with skin on. ? Nuts and nut products. ? Chocolate. ??? If you regularly take a diuretic medicine, make sure to eat at least 1 or 2 servings of fruits or vegetables that are high in potassium each day. These include: ? Avocado. ? Banana. ? Mingo, prune, carrot, or tomato juice. ? Baked [...] fish oil, or vitamin B6. ??? Take wwdm-jal-pngehas and prescription medicines only as told by your health (more content not included)...[facility]01-24-2025 History of Present illness Narrative* Ashutosh Ling [...] exam, discussion and plan. documented in this [facility] Work Phone: 1(188) 112-372601-24-2025 Instructions* Patient Instructions* Denisse Mosher RN - [...] Provided instructions on exercise. documented in this [facility] Work Phone: 1(898) 149-974810-11-2024 Hospital Discharge instructions Patient Education 11/29/2023 09:42:02 [...] you may eat and drink normally. Take fswv-rfz-guniihi and prescription medicines only as told by your health care provider. Let your health care provider know about any medicines that you are taking, including tqic-dyt-fyordpt medicines, vitamins, herbs, and supplements. Choose a [...] provider. Document Revised: 08/11/2021 Document Reviewed: 08/11/2021 [employer] Patient Education 2023 [employer] 11/29/2023 09:40:32 Laser Therapy for Kidney [...] including vitamins, herbs, eye drops, creams, and bvvl-yfm-xpupthp medicines. Any problems you or family members [...] unless your provider tells you to. ?Taking mhip-www-xqvzopd medicines, vitamins, herbs, and supplements. Tests You [...] provider. Document Revised: 10/05/2022 Document Reviewed: 10/05/2022 [employer] Patient Education 2023 [employer]. Follow Up Care 11/26/2022 14:10:52 With:CACHORRO HAHN, Shanna Sánchez, JENNIFER Address: [facility] [address], [place] [address]- When: Unknown [facility]2024 NotePatient Education Nephrology Laser Therapy [...] including vitamins, herbs, eye drops, creams, and rbge-oxx-nsfsgte medicines. ? Any problems you or family [...] your provider tells you to. ? Taking wiii-ycb-slfnduh medicines, vitamins, herbs, and supplements. Tests ? [...] a strainer to col (more content not included)...[facility]05-08-2024 History of Present illness Narrative* Ashutosh Ling MD - 06/26/2023 3:10 PM EDT Subjective Olfa Briones is a 78 y.o. male Chief [...] his lab work is done through the [facility] Review of Systems Cardiovascular: Positive for [...] exam, discussion and plan. documented in this [facility] Work Phone: 1(156) 319-350705-08-2024 Instructions* Patient Instructions* Mandy Munoz LPN - [...] mg two times daily documented in this [facility] Work Phone: 1(489) 273-147411-22-2023 History of Present illness Narrative* Ashutosh Ling [...] 26.0-26.9,adult 8. Easy bruisability [facility]: 1(355) 507-574311-22-2023 Instructions* Patient Instructions* Travis Peter MA - [...] time of your visit. [facility] Work Phone: 1(910) 892-380609-11-2023 Evaluation note* Encounter Date Diagnosis Assessment Notes Treatment Notes Treatment Clinical Notes Oct, Impacted cerumen of both ears (ICD-10 - H61.23) Cerumen impaction home care material was printed Drink plenty fluids, get plenty of rest. Continue home medications as prescribed. Follow-up with your family physician for any further concerns [facility] Other 07-20-2023 Miscellaneous Notes* Telephone Encounter - [...] called in. The pharmacy is not at [facility]. I will need to call them when its done. Dr Koroma is asking why he is on flomax? Please advise. [facility] Miscellaneous Notes* Telephone Encounter - Deborah Ibarra RN - 09/04/2022 12:51 PM EDT PATIENT INFORMATION Record ID: [id number] Patient Name: Formerly [facility]: [facility]: [facility] Attending: [facility]: Urology INSTRUCTIONS SN to remind patient of appointment date, time, location All Clear All Clear SURVEY INFORMATION Medical/Nurse Taxi Cab Driver: Deborah Ibarra 1. Your discharge instructions are [...] symptoms? (Standard Question) No documented in [facility]Day[facility]23 NoteHNO ID: [id number] Author: Kathrin Dickerson RN Service: Care Management [...] Primary Care Physician Name/Phone: Jame Barraza MD [phone] Patient is medically stable for discharge, on RA, no dc needs. IMM provided on 08/30 by previous CM. Patients to discharge home. SIGNATURE: Kathrin Dickerson RN PATIENT NAME: Olaf Briones DATE: August 31, 2022 TIME: 9:40 AM CONTACT #: [phone]23 Note HNO ID: [id number] Author: Danyell Morris MD Service: Critical Care Author Type: Anesthesiologist Type: Progress Notes Filed: 08/31/2022 2:15 PM Note Text: SERVICE DATE: 08/31/2022 SERVICE TIME: 8:54 AM SURGICAL INTENSIVE CARE UNIT PROGRESS NOTE BRIEF HPI: Olaf Briones is a 77 year old male with PMHx of recent STEMI on 08/20/22 (s/p JUHI),HTN, HLD, DM, nephrolithiasis, transferred from [facility] for gross hematuria. He is now [...] Primary and SICU discussed patient transfer to [facility]. 08/30:no acute events. Hemodynamically stable. 08/31: No acute events. HDS. Patient is doing well and ready for transfer/discharge per Urology. Subjective INTERVAL EVENTS: Improved Objective MEDICATIONS: Current medications and allergies reviewed. Recommended/planned medication changes discussed in detail in the A/P section below. Please refer to [facility] for list of inpatient medications. VITAL SIGNS: [...] aspirin and ticagrelor Coronary artery disease involving solomon coronary artery of solomon heart Assessment: STEMI on 08/19/2022 s/p JUHI [...] admiss (more content not included)...[facility]07-14-2023 NoteHNO ID: [id number] Author: Prema Feliz MD Service: Urology Author Type: Resident Type: Progress Notes Filed: 08/31/2022 6:45 AM Note Text: [facility] UROLOGY PROGRESS NOTE Name: Olaf Briones Bed: H050 013/H050-13 Date: 08/31/2022 After Hours [facility] Urology Service Pager: [phone] ASSESSMENT AND PLAN Olaf Briones is a 77 year old male with PMHx of HTN, HLD, DM, recent STEMI (s/p JUHI, on Brillinta and ASA), nephrolithiasis s/p ESWL , BPH s/p TURP 2001, transferred from [facility] for gross hematuria. Currently with 18Fr 3-way catheter on CBI. Now 3 Days Post-Op s/p cystoscopy, clot evacuation, cystolitholapaxy, TURP. Admitted to SICU postoperatively due to pressor requirements and risk of hyponatremia due to length of TURP. 22Fr [address] hernandez placed introp, on traction and CBI. Transferred to [facility] 08/30. Interval: - AFVSS - Doing [...] order flomax for home. Active Problems Prior DE POA: Yes - placed on ASA 81, ticagrelor 90 mg BID Nephrolithiasis POA: Yes - Monitor HLD POA: Yes - Home atorva 80 mg DM POA: Yes - SSI HTN POA: Yes - amlodipine 5mg daily, carvedilol 6.25 BID, lisinopril 2.5 mg daily Prema Feliz MD PGY-2 Resident Physician Urology Pager: [phone] For weekend or after hours issues [place] [phone] SUBJECTIVE See above Objective OBJECTIVE Vital Signs BP 114/56 Pulse 61 Temp 36.9 ?C (98.4 ?F) (Oral) Resp 15 Ht 173 cm (5' 8.11 ) Wt 77.9 kg (171 lb 11.8 oz) SpO2 95% BMI 26.03 kg/m? Input and Output Intake/Output Summary (Last 24 hours) at 08/31/2022 0645 Last data filed at 08/31/2022 0600 Gross per 24 hour Intake 6174.7 ml Output 39758 ml Net -5325.3 ml Physical Exam GEN: [...] Feliz MD PGY-2 Resident Physician Urology Pager: [phone] For weekend or after hours issues please page the [place]rology [place] [phone]07-[facility]-2023 NoteHNO ID: [id number] Author: Danyell Morris MD Service: Critical Care Author Type: Anesthesiologist Type: Progress Notes Filed: 08/30/2022 3:36 PM Note Text: SERVICE DATE: 08/30/2022 SERVICE TIME: 3:25 PM SURGICAL INTENSIVE CARE UNIT PROGRESS NOTE BRIEF HPI: Olaf Briones is a 77 year old male with PMHx of recent STEMI on 08/20/22 (s/p JUHI),HTN, HLD, DM, nephrolithiasis, transferred from [facility] for gross hematuria. He is now [...] Primary and SICU discussed patient transfer to [facility]. 08/30:no acute events. Hemodynamically stable. Subjective INTERVAL EVENTS: hemodynamically stable. Objective MEDICATIONS: Current medications and allergies reviewed. Recommended/planned medication changes discussed in detail in the A/P section below. Please refer to [facility] for list of inpatient medications. VITAL SIGNS: [...] Is Patient Clinically Ready to Transfer to [facility] or SDU?: Yes, transfer to SDU or [facility] today Discharge Planning: To be determined [...] aspirin and ticagrelor Coronary artery disease involving solomon coronary artery of solomon heart Assessment: STEMI on 08/19/2022 s/p JUHI [...] Antiplatel (more content not included)...[facility]07-13-2023 NoteHNO ID: [id number] Author: Prema Feliz MD Service: Urology Author Type: Resident Type: Progress Notes Filed: 08/30/2022 7:12 AM Note Text: [facility] UROLOGY PROGRESS NOTE Name: Olaf Briones Bed: H050 013/H050-13 Date: 08/30/2022 After Hours [facility] Urology Service Pager: [phone] ASSESSMENT AND PLAN Olaf Briones is a 77 year old male with PMHx of HTN, HLD, DM, recent STEMI (s/p JUHI, on Brillinta and ASA), nephrolithiasis s/p ESWL remote, BPH s/p TURP 2001, transferred from [facility] for gross hematuria. Currently with 18Fr [...] discharge today vs tomorrow Active Problems Prior DE POA: Yes - placed on ASA 81, ticagrelor 90 mg BID Nephrolithiasis POA: Yes - Monitor HLD POA: Yes - Home atorva 80 mg DM POA: Yes - SSI HTN POA: Yes - amlodipine 5mg daily, carvedilol 6.25 BID, lisinopril 2.5 mg daily Prema Feliz MD PGY-2 Resident Physician Urology Pager: [phone] For weekend or after hours issues [place] [phone] SUBJECTIVE See above Objective OBJECTIVE Vital Signs BP 111/56 Pulse 61 Temp 36.7 ?C (98.1 ?F) (Axillary) Resp 12 Ht 173 cm (5' 8.11 ) Wt 84 kg (185 lb 3 oz) SpO2 96% BMI 28.07 kg/m? Input and Output Intake/Output Summary (Last 24 hours) at 08/30/2022 0558 Last data filed at 08/30/2022 0500 Gross per 24 hour Intake 6400 ml Output 75249 ml Net -4150 ml Physical Exam GEN: [...] Feliz MD PGY-2 Resident Physician Urology Pager: [phone] For weekend or after hours issues please page the on-call urology [place]ager at [phone] Health St. [facility]07-12-2023 NoteHNO ID: [id number] Author: Ary Frazier RN Service: Care Management [...] oxygen, or cpaps at home. Had recent DE in past. Cardiology on consult. No current [...] 29, 2022 TIME: 12:11 PM PAGER/CONTACT #: [phone] Health St. [facility]07-12-2023 NoteHNO ID: [id number] Author: Danyell Morris MD Service: Critical Care Author Type: Anesthesiologist Type: Progress Notes Filed: 08/29/2022 3:08 PM Note Text: SERVICE DATE: 08/29/2022 SERVICE TIME: 11:28 AM SURGICAL INTENSIVE CARE UNIT PROGRESS NOTE BRIEF HPI: Olaf Briones is a 77 year old male with PMHx of recent STEMI on 08/20/22 (s/p JUHI),HTN, HLD, DM, nephrolithiasis, transferred from [facility] for gross hematuria. He is now [...] Primary and SICU discussed patient transfer to [facility]. Subjective INTERVAL EVENTS: Improved Objective MEDICATIONS: Current medications and allergies reviewed. Recommended/planned medication changes discussed in detail in the A/P section below. Please refer to [facility] for list of inpatient medications. VITAL SIGNS: [...] Is Patient Clinically Ready to Transfer to [facility] or SDU?: Yes, transfer to SDU or [facility] today Discharge Planning: To be determined [...] aspirin and ticagrelor Coronary artery disease involving solomon coronary artery of solomon heart Assessment: STEMI on 08/19/2022 s/p JUHI [...] Urology AND SICU ok for transfer to [facility] Medication and Non-Pharmacologic VTE Prophylaxis/Anticoagulants Anticoagulant AND Antiplatelet Medica (more content not included)...[facility]07-12-2023 NoteHNO ID: [id number] Author: David Andrews MD Service: Urology Author Type: Physician Type: Progress Notes Filed: 08/29/2022 7:09 PM Note Text: [facility] UROLOGY PROGRESS NOTE Name: Olaf Briones Bed: H050 013/H050-13 Date: 08/29/2022 After Hours [facility] Service Pager: [phone] ASSESSMENT AND PLAN Olaf Briones is a 77 year old male with PMHx of HTN, HLD, DM, recent STEMI (s/p JUHI, on Brillinta and ASA), nephrolithiasis s/p ESWL remote, BPH s/p TURP 2001, transferred from [facility] for gross hematuria. Currently with 18Fr [...] EF 55% -Encourage IS -Continue telemetry on [facility] #GI - -Diet: Regular diet -Colace, [...] - routine #Disposition - pending course, to [facility] today if SICU agrees it is appropriate. Plan for discharge tomorrow. Active Problems Prior DE POA: Yes - placed on ASA 81, ticagrelor 90 mg BID Nephrolithiasis POA: Yes - Monitor HLD POA: Yes - Home atorva 80 mg DM POA: Yes - SSI HTN POA: Yes - amlodipine 5mg daily, carvedilol 6.25 BID, lisinopril 2.5 mg daily Prema Feliz MD PGY-2 Resident Physician Urology Pager: [phone] For weekend or after hours issues [place] [phone] CHIEF RESIDENT ADDENDUM POD#1 s/p cysto, TURP, [...] 08/29/2022 0700 Gross per 24 hour Intake 20747.5 ml Output 52492 ml Net 5853.5 ml Gen: No apparent [...] Mcgowan MD Resident PGY-6 Urology [facility] Please page Dr. Feliz with any [...] 08/29/2022 0700 Gross per 24 hour Intake 49516.5 ml Output 34230 ml Net 5853.5 ml Physical Exam GEN: [...] Feliz MD PGY-2 Resident Physician Urology Pager: [phone] For weekend or after hours issues [place] [phone] [facility] STAFF PHYSICIAN NOTE OF PERSONAL INVOLVEMENT IN CARE I have reviewed the progress note obtained and documented by the resident (more content not included)...[facility]07-11-2023 NoteHNO ID: [id number] Author: Molly Rosado APRN.TUBER MACHINE OPERATOR Service: ? Author Type: Nurse Household Chores Type: Anesthesia Procedure Notes Filed: 08/28/2022 7:27 PM Note Text: ANESTHESIOLOGY PROCEDURE NOTE PIV General Information Procedure Start Time/Medication Administration: 08/28/2022 7:26 PM Staffing TUBER MACHINE OPERATOR: Molly Rosado APRN.TUBER MACHINE OPERATOR Preparation Sterility Preparation: hand hygiene performed prior to procedure, surgical cap used, mask used, skin prep agent completely dried prior to procedure Sterility Technique Not Completely Performed Due to Extreme Emergency: No Site Prep: alcohol Procedure Details Indication: need for IV access Needle Size/Type: 18 gauge angiocath Orientation: Left Location: Hand Imaging Guidance Used: No SIGNATURE: Molly Rosado APRN.TUBER MACHINE OPERATOR PATIENT NAME: Olaf Briones DATE: August 28, 2022 TIME: 7:26 PM CSN: [id number] Health St. [facility]07-11-2023 NoteHNO ID: [id number] Author: Molly Rosado APRN.TUBER MACHINE OPERATOR Service: ? Author Type: Nurse Household Chores Type: Anesthesia Procedure Notes Filed: 08/28/2022 6:31 PM Note Text: ANESTHESIOLOGY PROCEDURE NOTE Airway General Information Procedure Start Time/Medication Administration: 08/28/2022 6:10 PM Patient location during procedure: OR Timeout Performed Pre-procedure: timeout performed Consent Obtained: Yes Patient identity confirmed: arm band and patient Staffing TUBER MACHINE OPERATOR: Molly Rosado APRN.TUBER MACHINE OPERATOR Indications and Patient Condition Indications for airway [...] no Airway not difficult SIGNATURE: Molly Rosado APRN.TUBER MACHINE OPERATOR PATIENT NAME: Olaf Briones DATE: August 28, 2022 TIME: 6:31 PM CSN: [id number] Health St. [facility]07-11-2023 NoteHNO ID: [id number] Author: Prema Feliz MD Service: Urology Author Type: Resident Type: Progress Notes Filed: 08/28/2022 9:47 PM Note Text: [facility] UROLOGY PROGRESS NOTE Name: Olaf Briones Bed: H050 013/H050-13 Date: 08/28/2022 After Hours [facility] Urology Service Pager: [phone] ASSESSMENT AND PLAN Olaf Briones is a 77 year old male with PMHx of HTN, HLD, DM, recent STEMI (s/p JUHI, on Brillinta and ASA), nephrolithiasis s/p ESWL , BPH s/p TURP 2001, transferred from [facility] for gross hematuria. Currently with 18Fr 3-way catheter on CBI. Now Day of Surgery s/p cystoscopy, clot evacuation, cystolitholapaxy, TURP. Admitted to SICU postoperatively due to pressor requirements and risk of hyponatremia due to length of TURP. 22[address] hernadnez placed introp, on traction and CBI. Interval: [...] pending course, in SICU Active Problems Prior DE POA: Yes - placed on ASA 81, ticagrelor 90 mg BID Nephrolithiasis POA: Yes - Monitor HLD POA: Yes - Home atorva 80 mg DM POA: Yes - SSI HTN POA: Yes - amlodipine 5mg daily, carvedilol 6.25 BID, lisinopril 2.5 mg daily Prema Feliz MD PGY-2 Resident Physician Urology Pager: [phone] For weekend or after hours issues [place] [phone] SUBJECTIVE See above Objective OBJECTIVE Vital Signs BP 112/52 Pulse 69 Temp 36.9 ?C (98.4 ?F) (Oral) Resp 18 Ht 173 cm (5' 8.11 ) Wt 75.5 kg (166 lb 7.2 oz) SpO2 97% BMI 25.23 kg/m? Input and Output Intake/Output Summary (Last 24 hours) at 08/28/20221955 Last data filed at 08/28/2022 1830 Gross per 24 hour Intake 12737 ml Output 79530 ml Net -1875 ml Physical Exam GEN: [...] Feliz MD PGY-2 Resident Physician Urology Pager: [phone] For weekend or after hours issues please page the [place] [phone] Health St[address] [facility]07-11-2023 NoteHNO ID: [id number] Author: Prema Feliz MD Service: Urology Author Type: Resident Type: Progress Notes Filed: 08/28/2022 8:02 AM Note Text: [facility] UROLOGY PROGRESS NOTE Name: Olaf Briones Bed: H050 013/H050-13 Date: 08/28/2022 After Hours [facility] Service Pager: [phone] ASSESSMENT AND PLAN Olaf Briones is a 77 year old male with PMHx of HTN, HLD, DM, recent STEMI (s/p JUHI, on Brillinta and ASA), nephrolithiasis s/p ESWL , BPH s/p TURP 2001, transferred from [facility] for gross hematuria. Currently with 18Fr [...] for cysto, fulguration today Active Problems Prior DE POA: Yes - placed on ASA 81, ticagrelor 90 mg BID Nephrolithiasis POA: Yes - Monitor HLD POA: Yes - Home atorva 80 mg DM POA: Yes - SSI HTN POA: Yes - amlodipine 5mg daily, carvedilol 6.25 BID, lisinopril 2.5 mg daily Essential elements of above plan discussed with staff, Dr. Sharon Feliz MD PGY-2 Resident Physician Urology Pager: [phone] For weekend or after hours issues [place] [phone] SUBJECTIVE See above Objective OBJECTIVE Vital Signs BP 116/57 Pulse 69 Temp 36.5 ?C (97.7 ?F) (Oral) Resp 18 Ht 173 cm (5' 8.11 ) Wt 75.5 kg (166 lb 7.2 oz) SpO2 97% BMI 25.23 kg/m? Input and Output Intake/Output Summary (Last 24 hours) at 08/28/2022721 Last data filed at 08/28/2022 0716 Gross per 24 hour Intake 61756.5 ml Output 41420 ml Net -47517.5 ml Physical Exam GEN: Alert, NAD EYES: Anicteric CV: Warm and well perfused LUNGS: Unlabored breathing on RA ABD: Soft, appropriately tender : Hernandez catheter present Labs Recent Labs 08/27/22 0710 WBC 16.24* HB 13.4 HCT 38.5* PLT 214 NA 140 K 4.3 CHLOR 105 CO2 22 BUN 17 CREAT 0.79 GLUC 197* Imaging Reviewed Prema Feliz MD PGY-2 Resident Physician Urology Pager: [phone] For weekend or after hours issues please page the on-call urology [place]ager at [phone] Health St[address] [facility]07-10-2023 NoteHNO ID: [id number] Author: Naomy Adkins MD Service: Urology Author [...] and opium suppositories, levsin, etc).[facility]07-09-2023 Evaluation + Plan noteExtracted from: [...] stent placed last saturday at [facility]. sees dr ivory Thank for consultation on [...] BPH with urinary obstruction / SNOMED CT 2181435276 / Confirmed Kidney stone / SNOMED CT 255818145 / Confirmed Weak urinary stream / SNOMED CT 393004030 / Confirmed Microscopic hematuria / SNOMED CT 225597676 / Confirmed Diabetes / SNOMED CT 428891512 / Confirmed Hypertension / SNOMED CT 8018362100 / Confirmed Prostatitis / SNOMED CT 62666308 / Confirmed BPH without urinary obstruction / SNOMED CT 8680584637 / Confirmed Gross hematuria / SNOMED CT 928899312 / Confirmed Asymptomatic microscopic hematuria / SNOMED CT 1433307425 / Confirmed, Active Problems (10) Asymptomatic microscopic hematuria BPH with urinary obstruction BPH without urinary obstruction Diabetes Gross hematuria Hypertension Kidney stone Microscopic hematuria Prostatitis Weak urinary stream Histories Past Medical History: No active or resolved past medical history items have been selected or recorded. Family History: Hypertension Father Procedure history: Cystoscopy (56085096) on 08/18/2013 at 68 Years. Comments: 10/02/2018 16:11 EDT - Katie Rogers MA 11/08/200904/2006 TURP - Transurethral resection of prostate (688161697) in 2006 at 61 Years. Urodynamics (412664754) in 2006 at 61 Years. Transrectal biopsy of prostate using ultrasound (US) guidance (7080907924) in 2005 at 60 Years. ESWL - Extracorporeal shockwave lithotripsy for renal calculus (647505723) in 2000 at 55 Years. Comments: 10/02/2018 [...] Normal range of motion. Integumentary: Warm, Dry, [place]. Neurologic: Alert, Oriented, Normal sensory. Psychiatric: Cooperative, [...] % HI Lymph Auto 6.1 % LOW Louisa Auto 4.9 % Eos Auto 0.9 % Basophil Auto 0.5 % Neutro Absolute 13.5 E9/L HI Lymph Absolute 0.9 E9/L LOW Louisa Absolute 0.8 E9/L Eos Absolute 0.1 E9/L [...] and Plan Diagnosis Abnormal CT scan, bladder (YZT63-WE R93.41, Working, Medical). Anticoagulated by anticoagulation treatment (USR69-SW Z79.01, Working, Medical). BPH with obstruction/lower urinary tract symptoms (VKH62-CY N40.1, Working, Medical). Gross hematuria (KAJ97-JR R31.0, Discharge, Medical). S/P TURP (status post transurethral resection of prostate) (PNS82-QG Z90.79, Working, Medical). Urinary retention (LIG08-IB R33.9, Discharge, Medical). Course: Worsening, Viewed CT [...] be prostate despite previous prostate resection. The Hrenandez catheter seems to be deviated to the [...] do not currently have available here at [facility] continuously. I discussed this extensively with the patient. Although disappointed, he understands the predicament. I would recommend tertiary care transfer after discussing all this with Dr. Salguero from internal medicine/hospitalist service. Extracted from: Title:ED Note Author:Abdulkdair Villatoro, Keith Correa te:08/26/22 1. Urinary retention [...] Date:11/02/2022 08:30:00 AM Scheduled Provider:Shanna IVORY MD Location:[facility] Appointment Type:URO Office Visit [facility]07-05-2023 Hospital Discharge instructions Additional Instructions DISCHARGE [...] doctor or pharmacist, without first calling the mysql developer who implanted the stent. If you require [...] weight lifting, stair steppers, etc. until the mysql developer approves these activities. Check with the mysql developer on your first follow-up visit. CALL YOUR PHYSICIAN at [phone]: -If bleeding should occur from the catheter insertion site- apply pressure to the site then immediately call us. -Report any fever, redness, drainage, increased swelling, or firmness at the catheter insertion site. Some bruising or slight swelling may be present at the time of discharge. -Should arm or leg become cold, numb, white, or blue, contact the mysql developer immediately. -IF you should experience episodes of [...] is recommended. Please call Central Scheduling at [phone] to schedule your appointment.] The attending mysql developer or [facility] nurse clinician should provide you with specific instructions regarding activity, diet, medications, and further follow up for you. Follow the medication instructions provided on your discharge. If the dosages and instructions on this sheet differ from the dosage and instructions on the bottle, follow the instructions on the bottle. [facility] is not responsible for incorrect prescription information provided by the patient during their visit. Do not stop your medications without consulting your health care provider. Please take the list with you to your next doctor's appointment.[facility] Work Phone: 1(114) 177-574607-04-2023 Consult note Author Juanito Barney [facility] August 21, 2022 11:41am Note Date/Time August 21, 2022 11:41 am [facility] [address] [place] [address] Pulmonology Consult Note Signed Patient: Olaf Briones MR#: [id number] : 1945 Acct:[id number] Age/Sex: 77 / M Adm Date: 3 Loc: Room: [address] [place] [address] Type: REG SDC Attending Dr: Steven Zamora [...] ST elevation in the inferior lateral leads. Maple Syrup Maker was activated, patient received PCI to RCA. [...] 08/21/22 10:00 08/21/22 10:00 08/21/22 10:00 Narrative: CLINICAL PROGRAM DIRECTOR: Alert and oriented x3. No focal deficits. [...] found to have inferior lateral ST elevation DE along with complete heart block. Maple Syrup Maker was activated, patient received PCI to RCA. Patient is currently doing much better with no signs or symptoms of heart block,he is on room air. Optimizing cardiac meds as per cardiology. Glycemic control DVT prophylaxis Discussed with nursing staff Documented By: Juanito Barney MD 08/21/22 113 6 Signed By: <Electronically signed by Juanito Barney MD> 08/21/22 1141 [facility] Work Phone: 1(962) 329-599307-04-2023 Progress note Author Elpidio Andres [facility] August 21, 2022 8:11am Note Date/Time August 21, 2022 8:11a m [facility] [address] [place] [address] Cardiology Progress Note Signed Patient: Olaf Briones MR#: [id number] : 1945 Acct:[id number] Age/Sex: 77 / M Adm Date: 3 Loc: Room: [address] [place] [address] Type: REG SDC Attending Dr: Steven Zamora [...] % (Auto) 64.1 Lymph % (Auto) 26.2 Louisa % (Auto) 7.9 Eos % (Auto) 1.3 Baso % (Auto) 0.5 Nucleat RBC Rel Count 0.1 Neut # (Auto) 6.9 Lymph # (Auto) 2.8 Louisa # (Auto) 0.9 H Eos # (Auto) [...] MPV Neut % (Auto) Lymph % (Auto) Louisa % (Auto) Eos % (Auto) Baso % (Auto) Nucleat RBC Rel Count Neut # (Auto) Lymph # (Auto) Louisa # (Auto) Eos # (Auto) Baso # [...] MPV Neut % (Auto) Lymph % (Auto) Louisa % (Auto) Eos % (Auto) Baso % (Auto) Nucleat RBC Rel Count Neut # (Auto) Lymph # (Auto) Louisa # (Auto) Eos # (Auto) Baso # (Auto) Monocyte Dist Width PT INR APTT PHA Creatinine Clear Sodium Potassium Chloride Carbon Dioxide Anion Gap BUN Creatinine Est GFR (CKD-EPI) Glucose Calcium Total Creatine Kinase Troponin I High Sens 9010.4 H* 92020.3 H* 43421.9 H* B-Natriuretic Peptide Triglycerides Cholesterol LDL Cholesterol, Calc VLDL Cholesterol HDL Cholesterol Cholesterol/HDL Ratio 08/21/22 08/21/22 08/21/22 05:30 05:30 05:30 Corrected WBC 13.6 H Uncorrected WBC Count 13.6 H RBC 4.66 Hgb 14.6 Hct 42.7 MCV 91.6 MCH 31.4 MCHC 34.3 RDW 13.5 Plt Count 171 MPV 9.5 Neut % (Auto) 85.4 Lymph % (Auto) 8.2 Louisa % (Auto) 6.1 Eos % (Auto) 0.1 Baso % (Auto) 0.2 Nucleat RBC Rel Count 0.0 Neut # (Auto) 11.7 H Lymph # (Auto) 1.1 Louisa # (Auto) 0.8 Eos # (Auto) 0.0 Baso # (Auto) 0.0 Monocyte Dist Width PT INR APTT PHA Creatinine Clear 74.81 Sodium 138 Potassium 3.8 Chloride 103 Carbon Dioxide 27.1 Anion Gap 11.7 BUN 12 Creatinine 0.71 Est GFR (CKD-EPI) > 60.0 Glucose 162 H Calcium 9.4 Total Creatine Kinase Troponin I High Sens 40954.9 H* B-Natriuretic Peptide Triglycerides 124 Cholesterol 132 [...] evolution today we will plan for disposition [facility] tomorrow. (2) Heart block: Assessment/Problem Details: Resolved with yazdanism of flow to the dominant right coronary [...] Elpidio Andres MD> 08/21/22 0811 [facility] Work Phone: 1(540) 586-303407-03-2023 History and physical note Author Steven Zamora [facility] August 20, 2022 6:29pm Note Date/Time August 20, 2022 6:24p m [facility] [address] [place] [address] Cardiology H&P Signed with Addenda Patient: Olaf Briones MR#: [id number] : 1945 Acct:[id number] Age/Sex: 77 / M Adm Date: 3 Loc: Room: [address] [place] [address] Type: REG SDC Attending Dr: Steven Zamora DO Copies to: NON STAFF Steven Zamora DO~ ADDENDUM1 Impression: Inferolateral STEMI with change in complete heart block Plan: Proceed with emergent cath and PCI. A total of 60 minutes nonprocedural critical care time were devoted to the ER staff, review of ECG, [facility] [facility] staff, nursing staff, both patient and family [...] Discussed case with ER attending, reviewed ECGs; [facility] [facility] team activated, half amp of atropine ordered in addition to routine upstream antiplatelet and Antithrombin therapies. Patient arrived at the [facility] at 1659 underwent first balloon activation at [...] additional complaints, except as documented [facility] Medical History (Updated 08/20/22 @ 16:41 by [...] x10E3/uL Lymph # (Auto) 2.8 (1.00-4.8) x10E3/uL Louisa # (Auto) 0.9 H (0.0-0.8) x10E3/uL Eos [...] <Electronically signed by Steven Zamora DO> 08/20/221826 [facility] Work Phone: 1(809) 834-403507-03-2023 [facility] note [facility]2023 History general Narrative - Reported * Type Description Date Surgical History TURP 2022 Hospitalization History heart attack august 20 2022 [facility] Other 09-09-2022 Hospital Discharge instructions Patient Education [...] urethra. Follow these instructions at home: Take xota-rgy-[id number] and prescription medicines only as told by [...] 02/04/2006 Document Revised: 12/30/2018 Document Reviewed: 03/11/2017 [employer] Patient Education 2020 [employer]. Follow Up Care 10/21/2020 08:48:14 With:CACHORRO HAHN, Shanna Sánchez, URL Address: [address] [place] [address]- When: Unknown [facility] consirv note Author Juanito Barney [facility] August 21, 2022 11:41am Note Date/Time August 21, 2022 11:41 am [facility] [address] [place] [address] Pulmonology Consult Note Signed Patient: Olaf Briones MR#: [id number] : 1945 Acct:[id number] Age/Sex: 77 / M Adm Date: 3 Loc: Room: [address] [place] [address] Type: REG SDC Attending Dr: Steven Zamora [...] ST elevation in the inferior lateral leads. [facility] [facility] was activated, patient received PCI to RCA. [...] 08/21/22 10:00 08/21/22 10:00 08/21/22 10:00 Narrative: CLINICAL PROGRAM DIRECTOR: Alert and oriented x3. No focal deficits. [...] found to have inferior lateral ST elevation DE along with complete heart block. [facility] [facility] was activated, patient received PCI to RCA. Patient is currently doing much better with no signs or symptoms of heart block,he is on room air. Optimizing cardiac meds as per cardiology. Glycemic control DVT prophylaxis Discussed with nursing staff Documented By: Juanito Barney MD 08/21/22 113 6 Signed By: <Electronically signed by Juanito Barney MD> 08/21/22 1141 [facility] Work Phone: Discharge summary Author Steven Zamora [facility] August 22, 2022 3:21pm Note Date/Time August 22, 2022 3:17p m [facility] [address] [place] [address] Discharge Summary Signed Patient: Olaf Briones MR#: [id number] : 1945 Acct:[id number] Age/Sex: 77 / M Adm Date: 3 Loc: Room: [address] [place] [address]: Steven Zamora DO Copies to: NON STAFF Steven Zamora DO~ Providers Date of Discharge: 08/22/22 Discharging Provider: tSeven Zamora Primary Care Provider: NON STAFF Consults: [...] % (Auto) 72.5, Lymph % (Auto) 15.9, Louisa % (Auto) 9.7, Eos % (Auto) 1.6, Baso % (Auto) 0.3, Nucleat RBC Rel Count 0.1, Neut # (Auto) 6.4, Lymph # (Auto) 1.4, Louisa # (Auto) 0.9 H, Eos # (Auto) [...] doctor or pharmacist, without first calling the mysql developer who implanted the stent. If you require [...] weight lifting, stair steppers, etc. until the mysql developer approves these activities. Check with the mysql developer on your first follow-up visit. CALL YOUR PHYSICIAN at [phone]: -If bleeding should occur from the catheter insertion site- apply pressure to the site then immediately call us. -Report any fever, redness, drainage, increased swelling, or firmness at the catheter insertion site. Some bruising or slight swelling may be present at the time of discharge. -Should arm or leg become cold, numb, white, or blue, contact the mysql developer immediately. -IF you should experience episodes of [...] is recommended. Please call Central Scheduling at [phone] to schedule your appointment.] The attending mysql developer or [facility] nurse clinician should provide you with specific instructions regarding activity, diet, medications, and further follow up for you. Follow the medication instructions provided on your discharge. If the dosages and instructions on this sheet differ from the dosage and instructions on the bottle, follow the instructions on the bottle. [facility] is not responsible for incorrect [...] signed by Steven Zamora DO> 08/22/22 1521 [facility] Work Phone: Evaluation + Plan note Future Appointments Appointment Date:11/02/2022 08:30:00 AM Scheduled Provider:Shanna IVORY MD Location:[facility] Appointment Type:URO Office Visit [facility] evaluation + Plan note Future Appointments Appointment Date:03/27/2024 08:45:00 AM Scheduled Provider:Shanna IVORY MD Location:[facility] Appointment Type:URO Office Visit [facility] evaluation + Plan note Future Appointments Appointment Date:04/02/2025 08:00:00 AM Scheduled Provider:Shanna IVOYR MD Location:[facility] Appointment Type:URO Office Visit [facility] evaluation note* Diagnosis Onset Date Resolution Status Heart block acute ST elevation (STEMI) myocardial infarction acute Syncope acute [facility] Work Phone: evaluation note* Diagnosis Arteriosclerotic cardiovascular disease- Primary Unspecified cardiovascular disease Abnormal EKG Nonspecific abnormal electrocardiogram (ECG) (EKG) Mixed hyperlipidemia Primary hypertension Unspecified essential hypertension Post PTCA Postsurgical percutaneous transluminal coronary angioplasty status Essential hypertension Unspecified essential hypertension BMI 26.0-26.9,adult Easy bruisability Other symptoms involving skin and integumentary tissues documented in this encounter [facility] Work Phone: Evaluation note* Diagnosis Essential hypertension- Primary Unspecified essential hypertension Arteriosclerotic cardiovascular disease Unspecified cardiovascular disease Abnormal EKG Nonspecific abnormal electrocardiogram (ECG) (EKG) Mixed hyperlipidemia Post PTCA Postsurgical percutaneous transluminal coronary angioplasty status BMI 26.0-26.9,adult Never smoked tobacco documented in this encounter [facility] Work Phone: Evaluation note* Diagnosis Arteriosclerotic cardiovascular disease- Primary Unspecified cardiovascular disease Post PTCA Postsurgical percutaneous transluminal coronary angioplasty status Mixed hyperlipidemia Abnormal EKG Nonspecific abnormal electrocardiogram (ECG) (EKG) Essential hypertension Unspecified essential hypertension Easy bruisability Other symptoms involving skin and integumentary tissues Never smoked tobacco BMI 28.0-28.9,adult documented in this encounter [facility] Work Phone: Evaluation note* Diagnosis Coronary artery disease involving solomon coronary artery of solomon heart without angina pectoris (CMS/HCC)- Primary Gout, [...] wellness visit, initial Coronary artery disease involving solomon coronary artery of solomon heart without angina pectoris (CMS/HCC) Primary hypertension (CMS/HCC) Unspecified essential hypertension Type 2 diabetes mellitus without complication, without long-term current use of insulin ([facility]/HCC) Need for hepatitis C screening test Special screening examination for other specified viral diseases Dyspnea on exertion- Primary Other dyspnea and respiratory abnormality 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 (CMS/HCC) Chest pain due to CAD (CMS/HCC) Atherosclerosis of aorta (I70.0) Atherosclerosis of aorta Routine general medical examination at health care facility- Primary Routine general medical examination at a health care facility Benign essential hypertension ([facility]/HCC) Essential hypertension, benign Nocturia Medicare annual wellness visit, initial Type 2 diabetes mellitus without complication, without long-term current use of insulin ([facility]/HCC) Mixed hyperlipidemia ([facility]/HCC) Mixed hyperlipidemia Sciatica, unspecified laterality 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 ([facility]/HCC) documented in this encounter [facility] HealthcareEvaluation noteNo assessment information availableAd[facility] Work Phone: History and physical note Author Steven Zamora [facility] August 20, 2022 6:29pm Note Date/Time August 20, 2022 6:24p m [facility] [address] [place] [address] Cardiology H&P Signed with Addenda Patient: Olaf Briones MR#: [id number] : 1945 Acct:[id number] Age/Sex: 77 / M Adm Date: 3 Loc: Room: [address] [place] [address] Type: REG SDC Attending Dr: Steven Zamora DO Copies to: NON STAFF Steven Zamora DO~ ADDENDUM1 Impression: Inferolateral STEMI with change in complete heart block Plan: Proceed with emergent cath and PCI. A total of 60 minutes nonprocedural critical care time were devoted to the ER staff, review of ECG, [employer] staff, nursing staff, both patient and family both pre and post procedurally Addendum Documented By: Steven Zamora DO 08/20/221828 Addendum Signed By: <Electronically signed by Steven Zamora DO> 08/20/221828 Date of Service: 08/20/2022 Cardiology HPI History of Present Illness Chief complaint: Inferolateral STEMI HPI: Mr. rBiones is a 77 year old male admitted through the emergency room with new onset severe angina and near syncope, initial ECG revealed complete heart block and inferolateral ST elevation from the squad. Upon arrival at 1621-second ECG (first ECG in the ER) revealed similar inferior lateral STEMI criteria and transient complete heart block. Discussed case with ER attending, reviewed ECGs; [employer] [facility] team activated, half amp of atropine ordered in addition to routine upstream antiplatelet and Antithrombin therapies. Patient arrived at the [facility] at 1659 underwent first balloon activation at [...] additional complaints, except as documented [facility] Medical History (Updated 08/20/22 @ 16:41 by [...] x10E3/uL Lymph # (Auto) 2.8 (1.00-4.8) x10E3/uL Louisa # (Auto) 0.9 H (0.0-0.8) x10E3/uL Eos [...] <Electronically signed by Steven Zamora DO> 08/20/221826 [facility] Work Phone: History of Present [...] notify me with change in cardiac status [facility] [employer] DO Work Phone: History of Present illness [...] notify me with change in cardiac status [facility] [employer] 250 DO Work Phone: History of Present [...] he developed hematuria ultimately went to the [facility] where he underwent TURP and removal [...] me change in cardiac status or symptoms [facility] 250 DO Work Phone: Hospital course Narrative No data available for this section [facility] Hospital Discharge instructions No data available for this section [facility] No data available for this section [facility] progress note Author Elpidio Andres [facility] August 21, 2022 8:11am Note Date/Time August 21, 2022 8:11a m [facility] [address] [place] [address] Cardiology Progress Note Signed Patient: Olaf Briones MR#: [id number] : 1945 Acct:[id number] Age/Sex: 77 / M Adm Date: 3 Loc: Room: [address] [place] [address] Type: REG SDC Attending Dr: Steven Zamora [...] % (Auto) 64.1 Lymph % (Auto) 26.2 Louisa % (Auto) 7.9 Eos % (Auto) 1.3 Baso % (Auto) 0.5 Nucleat RBC Rel Count 0.1 Neut # (Auto) 6.9 Lymph # (Auto) 2.8 Louisa # (Auto) 0.9 H Eos # (Auto) [...] MPV Neut % (Auto) Lymph % (Auto) Louisa % (Auto) Eos % (Auto) Baso % (Auto) Nucleat RBC Rel Count Neut # (Auto) Lymph # (Auto) Louisa # (Auto) Eos # (Auto) Baso # [...] MPV Neut % (Auto) Lymph % (Auto) Louisa % (Auto) Eos % (Auto) Baso % (Auto) Nucleat RBC Rel Count Neut # (Auto) Lymph # (Auto) Louisa # (Auto) Eos # (Auto) Baso # (Auto) Monocyte Dist Width PT INR APTT PHA Creatinine Clear Sodium Potassium Chloride Carbon Dioxide Anion Gap BUN Creatinine Est GFR (CKD-EPI) Glucose Calcium Total Creatine Kinase Troponin I High Sens 9010.4 H* 88721.3 H* 61016.9 H* B-Natriuretic Peptide Triglycerides Cholesterol LDL Cholesterol, Calc VLDL Cholesterol HDL Cholesterol Cholesterol/HDL Ratio 08/21/22 08/21/22 08/21/22 05:30 05:30 05:30 Corrected WBC 13.6 H Uncorrected WBC Count 13.6 H RBC 4.66 Hgb 14.6 Hct 42.7 MCV 91.6 MCH 31.4 MCHC 34.3 RDW 13.5 Plt Count 171 MPV 9.5 Neut % (Auto) 85.4 Lymph % (Auto) 8.2 Louisa % (Auto) 6.1 Eos % (Auto) 0.1 Baso % (Auto) 0.2 Nucleat RBC Rel Count 0.0 Neut # (Auto) 11.7 H Lymph # (Auto) 1.1 Louisa # (Auto) 0.8 Eos # (Auto) 0.0 Baso # (Auto) 0.0 Monocyte Dist Width PT INR APTT PHA Creatinine Clear 74.81 Sodium 138 Potassium 3.8 Chloride 103 Carbon Dioxide 27.1 Anion Gap 11.7 BUN 12 Creatinine 0.71 Est GFR (CKD-EPI) > 60.0 Glucose 162 H Calcium 9.4 Total Creatine Kinase Troponin I High Sens 57747.9 H* B-Natriuretic Peptide Triglycerides 124 Cholesterol 132 [...] evolution today we will [facility]. (2) Heart block: Assessment/Problem Details: Resolved with yazdanism of flow to the dominant right coronary [...] signed by Elpidio Andres MD> 08/21/22 0811 [facility] Work Phone: Reason for referral (narrative)* Consultation (Routine) - Authorized Specialty Diagnoses / Procedures Referred By Contac t Referred To Contact Cardiology Diagnoses Arteriosclerotic cardiovascular disease Abnormal EKG Mixed hyperlipidemia Procedures Follow Up In Cardiology Ashutosh Ling MD [address] [place] [address] Ashutosh Ling MD [address] [place] [address] Referral ID Status Reason Start Date Expiration Date V isits Requested Visits Authorized [id number] Authorized 01/09/2023 01/09/2024 1 1 [facility] Work Phone: Reason for referral (narrative)* Consultation (Routine) - Authorized Specialty Diagnoses / Procedures Referred By Contdotty t Referred To Contact Cardiology Diagnoses Arteriosclerotic cardiovascular disease Procedures Follow Up In Cardiology Ashutosh Ling MD [address] [place] [address] Ashutosh Ling MD [address] [place] [id number] Referral ID Status Reason Start Date Expiration Date V isits Requested Visits Authorized [id number] Authorized 06/26/2023 06/25/2024 1 1 [facility] Work Phone: Family History No Family [...] 05 12:34pm Coronary artery disease invo lving solomon coronary artery of solomon heart [place] June 25, 2024 1:39pm Essential [...] Cardiology Ashutosh Ling MD [address] [facility] 2, [address] [address] Ashutosh Ling MD [address] [place], [place] [address] 2, [address] [place] [address] Referral ID Status Reason Start Date Expiration Date V isits Requested Visits Authorized [id number] Authorized 01/09/2023 01/09/2024 1 1 Specialty Diagnoses / Procedures Referred By Contdotty t Referred To Contact Cardiology Diagnoses Arteriosclerotic cardiovascular disease Procedures Follow Up In Cardiology Ashutosh Ling MD [address] [facility] 2, [facility] [address] [place] [address] Phone: tel: fax: Ashutosh Ling MD [address] [facility] 2, [facility] [address] [place] [address] Phone: tel: fax: Referral ID Status Reason Start Date Expiration Date V isits Requested Visits Authorized [id number] Authorized 06/26/2023 06/25/2024 1 1 Reason Comments [...] Steven Zamora , DO Attending Provider Active Sports Physician Relationship Specialty Start Date End Date Jame Barraza MD [address] [place], [place] [id number] PCP - General Family Medicine 08/31/22 Sports Physician Relationship Specialty Start Date End Date Jame Barraza MD [address] [place], [place] [id number] PCP - General Family Medicine 08/31/22 Sports Physician Relationship Specialty Start Date End Date Ashutosh Ling MD [address] [facility] 2, [facility] [address] [place] [address] PCP - [employer] PCP 08/18/22 Dav Peguero MD [address] [facility] [address] [place] [address] PCP - General Family Medicine 01/09/23 Sports Physician Relationship Specialty Start Date End Date Dav Peguero MD PCP - General Family Medicine 01/09/23 Sports Physician Relationship Specialty Start Date End Date Dav Peguero MD [address] [place] [address] PCP - General Family Medicine 10/09/22 Dav Peguero MD [address] [place] [address] [facility] 05/20/23 06/17/65 Sports Physician Relationship Specialty Start Date End Date Dav Peguero MD PCP - General Family Medicine 01/09/23 Sports Physician Relationship Specialty Start Date End Date Dav Peguero MD [address] [place] [address] PCP - General Family Medicine 10/09/22 Dav Peguero MD [address] [place] [address] [facility] 05/20/23 06/17/65 Sports Physician Relationship Specialty Start Date End Date Dav Pegureo MD [address] [place] [address] PCP - General Family Medicine 10/09/22 Dav Peguero MD [address] [facility] [address] [place] [address] [facility] 05/20/23 06/17/65 Team Status: Active Member Role [...] June 25, 2024 End: June 25, 2024 Sports Physician Relationship Specialty Start Date End Date Dav Peguero MD [address] [facility] [address] [place] [address] PCP - General Family Medicine 10/09/22 Dav Peguero MD [address] [address] PCP - [facility] 05/20/23 06/17/65 (unrecognized sect ion and content) No Status Records FoundNo Status Records FoundNo Status Records FoundNo Status Records FoundNo Status Records FoundNo Status Records FoundNo Status Records FoundNo Status Records FoundNo Status Records FoundNo Status Records Found INFORMATION SOURCE (unrecogn ized section and content) DATE CREATED AUTHOR 11/15/2021 [facility] DATE CREATED AUTHOR AUTHOR'S ORGANIZ ATION 09/06/2022 [facility] DATE CREATED AUTHOR AUTHOR'S ORGANIZ ATION 09/07/[address] [facility] DATE CREATED AUTHOR AUTHOR'S ORGANIZ ATION 10/10/2022 [facility] DATE CREATED AUTHOR AUTHOR'S ORGANIZ ATION 02/28/2024 [facility] DATE CREATED AUTHOR AUTHOR'S ORGANIZ ATION 03/29/2024 [facility] DATE CREATED AUTHOR AUTHOR'S ORGANIZ ATION 04/04/2024 [facility] DATE CREATED AUTHOR AUTHOR'S ORGANIZ ATION 04/06/2024 [facility] DATE CREATED AUTHOR AUTHOR'S ORGANIZ ATION 06/27/2024 [facility] DATE CREATED AUTHOR AUTHOR'S ORGANIZ ATION 09/04/2024 [facility] Goals (unrecognized section and content) Goals may be documented in a n alternate section Source Comments (unrecognize d section and content) In the event this informatio n is protected by the Federal Confidentiality of Alcohol and Drug Abuse Patient Records regulations: The Federal rules restrict any use of the information to criminally investigate or prosecute any alcohol or drug abuse patient.[facility] the event this information is protected by the Federal Confidentiality of Alcohol and Drug Abuse Patient Records regulations: The Federal rules restrict any use of the information to criminally investigate or prosecute any alcohol or drug abuse patient.[facility] FOR RECORDS PERTAINING TO PATIENTS WHO [...] BE BASED ON THE PRIMARY CLINICAL RECORDS. [employer] provides no warranty or guarantee of the accuracy or completeness of information in this document.
[2024-12-07 11:21] VITALS: BP 139/68; PULSE 75; TEMP 37.2; O2SAT 99
[2024-12-07 12:01] VITALS: BP 148/65; PULSE 67; O2SAT 96
[2024-12-07] MEDS: 0.9 % SODIUM CHLORIDE 10 ML SYRINGE - SALINE FLUSH INJ (12:03)
[2024-12-07] MEDS: BUPIVACAINE HCL 0.25% PF 25 MG/10 ML VIAL 2 ML INJ (12:03)
[2024-12-07] MEDS: IOHEXOL 240 MG/ML - 10 ML VIAL INJ (12:04)
[2024-12-07] MEDS: METHYLPREDNISOLONE ACETATE 80 MG/ML VIAL INJ (12:04)
[2024-12-07] MEDS: LIDOCAINE HCL 2% 400 MG/20 ML MDV 3 ML INJ (12:04)
--- NOTE | 2024-12-07 12:05 | W.PM.PROCNOT ---
Date of procedure: 12/07/24 Pre-op diagnosis: Pain due to lumbar stenosis with neurogenic claudication Post-op diagnosis: same as pre-op Procedure: Procedure: Bilateral L4-5 transforaminal epidural steroid injection Medications: Bupivacaine 0.25% 2cc, lidocaine 2% 1cc, depomedrol 80mg The patient was seen and examined in the preoperative holding area.? Informed consent was obtained and placed on the chart.? Patient was brought to the medical procedure unit and placed in the prone position where a timeout was completed verifying the correct patient, procedure site, position, and planned special equipment using sterile aseptic technique.? Under direct fluoroscopic visualization a 25-gauge Quincke tipped spinal needle was advanced at level left L4-5 to the designated neural foramen where contrast dye was injected to show adequate spread.? There was no evidence of vascular or adverse uptake.? Epidural spread was appreciated.? The above-mentioned injectate was then placed in a 1.5 mL aliquot preceded by negative aspiration.? The needle was removed. The same procedure, at the same level, was completed on the opposite side. ? Patient was taken to the postprocedural recovery area and monitored for an appropriate length of time before found suitable for discharge in the accompaniment of a responsible adult. Anesthesia: Local Surgeon: Alonzo Briscoe Pathology: none sent Condition: stable Disposition: no change
[2024-12-07 12:06] VITALS: BP 137/65; PULSE 68; O2SAT 96
== END 2024-12-07 12:12 | disposition home or self-care (01) ==
PROVIDERS: PCP Family Medicine; Visit Provider Anesthesiology
DX: M48.062 Spinal stenosis, lumbar region with neurogenic claudication (principal); M54.50 Low back pain, unspecified; E11.8 Type 2 diabetes mellitus with unspecified complications
CPT/HCPCS: 36415; 64483; 82948; J0665; J1010; Q9966

== ENCOUNTER 2024-12-16 08:50 | Outpatient (OUT) | payer MEDICARE, SELFPAY ==
--- OUTSIDE RECORDS SUMMARY | 2024-12-16 08:53 | XMS_ITS | Clinical Summary ---
Author Organization [facility] Address [address] [place] [address] Care Team Providers Care Resin Mixer Name Role Phone Mora Barraza MD Primary Care Provider Unav ailable Allergies Active AllergyReactionsCriticalityNoted DateCommentsAlbuterolOther: See Comments 11/12/20115236EysnkaegfixabscratfVnjq61/03/2023 Medications MedicationSigDispense QuantityRefillsLast FilledStart DateEnd DateStatus allopurinol (ZYLOPRIM) 300 mg tablet Take 300 mg by mouth once daily.10/02/2018Active amLODIPine (NORVASC) 5 mg tablet Take 5 mg by mouth once daily.10/24/2018Active carvedilol (COREG) 6.25 mg tablet Take 6.25 mg by mouth twice daily with meals.08/22/2022ctive ticagrelor (BRILINTA) 90 mg tablet Take 90 mg by mouth twice daily.08/22/2022ctive aspirin, enteric coated (ASPIRIN, ENTERIC COATED) 81 mg EC tablet Take 81 mg by mouth once daily.11/24/2020ctive lisinopril 2.5 mg tablet Take 2.5 mg by mouth once daily.08/22/2022ctive diclofenac, EC, (VOLTAREN) 75 mg EC tablet Take 75 mg by mouth twice daily.10/24/2018Active nitroglycerin sublingual (NITROQUICK) 0.4 mg SL tablet Dissolve 0.4 mg under the tongue every 5 minutes as needed for chest pain. 08/22/2022ctive trospium (SANCTURA) 20 mg tablet Take 1 tablet by mouth twice daily for montague discomfort. Stop taking 48 hours before montague removal. 30 tablet 6:35 PM EDT08/30/2022ctive Active Problems ProblemNoted DateDiagnosed DateMalnutrition of mild fwyhxw3108/29/2022 Assessment & Plan (08/29/2022 11:28 AM EDT): Assessment: Patient on liquid diet. Plan: - Advance to regular diet Kckntmisq77/10/2023 Assessment & Plan (08/31/2022 8:54 AM EDT): [...] - Management per urology Coronary artery disease involving rosebud coronary artery of rosebud heart 08/27/2022 Assessment & Plan (08/31/2022 8:51 [...] ASA and ticagrelor Adverse reaction to antiplatelet agent08/27/2022Myocardial aopcvylpeq99/10/2023 Assessment & Plan (08/31/2022 8:52 AM EDT): [...] DAPT with ASA and ticagrelor Essential (primary) acgrvdufzesm37/10/2023 Assessment & Plan (08/31/2022 8:52 AM EDT): [...] meds if HDS Type 2 diabetes mellitus without complication, without long-term current use of smevduo1808/27/2022 Assessment & Plan (08/31/2022 8:53 AM EDT): [...] medications, not on home insulin Plan -SSI Fgjxccylhzfy22/10/2023 Assessment & Plan (08/29/2022 11:27 AM EDT): Assessment: WBC count downtrending. Blood and urine cultures negative. On Zosyn since 08/27 Plan: - D/c zosyn per primary Immunizations ImmunizationAdministration DatesNext DueAS03 /29/2019,12/24/2017COVID- 19 original vaccine, age 12+ yr, monovalent (PFIZER-BIONTECH - PURPLE TOP) 02/06/2021,04/12/2020,03/28/2020influenza (HD-IIV3) vaccine, age 65+ yr, high dose, trivalent, PF (FLUZONE HIGH-DOSE)12/21/2016,11/23/2015influenza (HD-IIV4) vaccine, age 65+ yr, high dose, quadrivalent, PF (FLUZONE HIGH-DOSE)12/16/2019 influenza (LAIV) vaccine, nasal, unspecified ewopudqhhds43/01/2023,11/18/2020, 10/20/2015,11/06/2014influenza (aIIV4) vaccine, age 65+ yr, quadrivalent, PF (FLUAD QUAD)12/26/2021,1pneumococcal conjugate (PCV13) vaccine, 13 valent (PREVNAR 13)11/06/2014pneumococcal polysaccharide (PPV23) vaccine, 23 valent (PNEUMOVAX 23)02/19/2016tetanus diphtheria pertussis (Tdap) vaccine, age 7+ yr (ADACEL, BOOSTRIX)03/27/2021 Social History Tobacco UseTypesPacks/DayYears UsedDateSmoking Tobacco: Never AssessedSex and Gender InformationValueDate RecordedSex Assigned at BirthNot on fileLegal Sex Male08/26/2022 10:42 PM EDTGender IdentityNot on fileSexual OrientationNot on file Last Filed Vital Signs Vital SignReadingTime TakenCommentsBlood Jdlepqxn976/6007 5:00 PM EDT Wqezg314808/31/2022 5:00 PM MCYBsmjtrfsnec34.7 ??C (98 ??F)08/31/2022 4:00 PM EDT Respiratory Ffut707908/31/2022 5:00 PM EDTOxygen Anjdcolpwy49%08/31/2022 5:00 PM EDTInhaled Oxygen Concentration--Ehmohg09.9 kg (171 lb 11.8 oz)08/31/2022 8:00 AM ZIJHgevcs895 cm (5' 8.11 )08/27/2022 5:59 AM EDTBody Mass Index26.03 08/27/2022 5:59 AM EDT Plan of Treatment Health MaintenanceDue DateLast DoneCommentsAnxiety Ylsodphbq43/30/1964Depression Olabuubfn48/30/1964Shingrix Vaccine (1 of 2)06/18/1995RSV Vaccine (1 - 1-dose 75+ series)2020dvance Directive Cnitsyvioo82/01/2025ovid-19 Vaccine ( season)/, 04/12/2020, 03/28/2020Influenza Vaccine (#1)501/02/2022, 12/26/2021, 11/18/2020, Additional history exists Diabetes Jvsxfzzar75/, 08/30/2022, 08/29/2022, Additional history existsDTaP,Tdap,Td Vaccine (2 - Td or Tdap)/08/2021 Pneumococcal Vaccine: 50+Vpkalzfvv98/01/2017, 11/06/2014, 09/11/2010 Procedures Procedure NamePriorityDate/TimeAssociated DiagnosisCommentsCOMPREHENSIVE METABOLIC PHUFBAESJ86/14/2023 12:24 AM EDT from Last 3 Months or Most Recently Relevant to Health Maintenance Results * (ABNORMAL) COMP METABOLIC PANEL (08/31/2022 12:24 AM EDT)ComponentValueRef RangeTest MethodAnalysis TimePerformed AtPathologist SignatureProtein, Total 6.1(L)6.3 - 8.0 g/dL08/31/2022 1:30 [facility] Albumin3.8(L)3.9 - 4.9 g/dL08/31/2022 1:[address] [facility] LABCalcium, Total9.18.5 - 10.2 mg/dL08/31/2022 1:[address] [facility] LABBilirubin, Total0.30.2 - 1.3 mg/dL08/31/2022 1:30 AM EDT [facility] LABAlkaline Dxaasmndixu148(H)38 - 113 U/L 08/31/2022 1:[address] [facility] UJKNQR9463 - 40 U/L 08/31/2022 1:[address] [facility] AFYHSV0960 - 54 U/L 08/31/2022 1:[address] [facility] GIEOvujyee861(H)74 - 99 mg/dL08/31/2022 1:[address] [facility] LABComment: The [place] Diabetes Association (ADA) provides guidance for cutoff values for fasting glucose andrandom glucose. The ADA defines fasting as no [...] Standards of Medical Care in Diabetes 2016, [place] Diabetes Association. Diabetes Care. 2016.39(Suppl 1). ALD523 - 24 mg/dL08/31/2022 1:[address] [facility] Creatinine0.880.73 - 1.22 mg/dL08/31/2022 1:[address] [facility] XJDSkehqo036523 - 144 mmol/L08/31/2022 1:[address] [facility] LABPotassium4.23.7 - 5.1 mmol/L08/31/2022 1:[address] [facility] FIRMmcenpty48370 - 105 mmol/L08/31/2022 1:[address] [facility] NJDBA31739 - 30 mmol/L08/31/2022 1:[address] [facility] LABAnion Gap99 - 18 mmol/L08/31/2022 1:[address] [facility] LABEstimated Glomerular Filtration Rate89>=60 mL/min/1.73m 08/31/2022 1:[address] [facility] LABComment:Estimated Glomerular Filtration Rate (eGFR) is calculated using the 2020 CKD-EPI creatinine equation. This equation utilizes serum creatinine, sex, and age as parameters. The creatinine assay has traceable calibration to isotope dilution- mass spectrometry. Refer to KDIGO guidelines for clinical interpretation. In patients with unstable renal function, e.g. those with acute kidney injury, the eGFRmay not accurately reflect actual GFR.Specimen (Source)Anatomical Location / LateralityCollection Method / VolumeCollection TimeReceived TimeBloodBLOOD SPECIMEN / UnknownVenipuncture / Qygaaqn0408/31/2022 12:24 AM EDT08/31/2022 12:36 AM EDT Narrative Authorizing ProviderResult TypeResult StatusRia Herrera MDLABORATORYFinal ResultPerforming OrganizationAddressCity/State/ZIP CodePhone Number [facility] [address] [place] [address], from Last 3 Months or Most Recently Relevant to Health Maintenance Insurance Care Teams Team MemberRelationshipSpecialtyStart DateEnd Date Mora Barraza MD PCP - [facility]08/31/22
--- OUTSIDE RECORDS SUMMARY | 2024-12-16 08:53 | XMS_ITS | Clinical Summary ---
Author Organization [facility] Address [address] [place] [address] Care Team Providers Care Systems Test Engineer Name Role Phone Christiano Coppola MD Primary Care Provider [phone] Christiano Coppola MD Unavailable Allergies Active AllergyReactionsCriticalityNoted WfqbXbyukocxDhbkiuenwQwp90/13/2023 PqynjlgcttkprvvizisKrscje33/13/2023 Medications MedicationSigDispense QuantityRefillsLast FilledStart DateEnd DateStatus amLODIPine (Norvasc) 5 MG tablet Take by mouth Daily.Active allopurinol (Zyloprim) 300 MG tablet Take by mouth.Active [facility] Aspirin Low Dose 81 MG EC tablet TAKE 1 TABLET BY MOUTH EVERY DAY FOR 14 DAYS08/22/2022ctive atorvastatin (Lipitor) 80 MG tablet Take 80 mg by mouth in the morning.09/08/2022ctive carvedilol (Coreg) 6.25 MG tablet TAKE 1 TABLET BY MOUTH TWICE A DAY WITH A MEAL/FOODActive lisinopril 2.5 MG tablet Take 2.5 mg by mouth in the morning.Active nitroglycerin (Nitrostat) 0.[address] 0.4 mg under the tongue.08/22/2022ctive ticagrelor (Brilinta) 90 MG tablet Take 90 mg by mouth in the morning and 90 mg in the evening.08/22/2022ctive citalopram (CeleXA) 10 MG tablet Indications:Current mild episode of major depressive disorder without prior episodeTAKE 1 TABLET (10 MG) BY MOUTH DAILY. 90 tablet tive Active Problems ProblemNoted DateDiagnosed IaueYlvexgjx09/13/2025Never smoked vkxchpi0406/26/2023 Dyspnea on elggfhpy79/02/2024 Assessment & Plan (05/21/2023 11:47 AM EDT): With known CAD and stents, needs stress test Chest pain due to CAD05/21/2023 Assessment & Plan (05/21/2023 11:48 AM EDT): Needs f/up cardiologfy Atherosclerosis of aorta (I70.0)05[facility]21[facility] bsyazzs9403/12/2023 Assessment & Plan (04/02/2024 1:32 PM EST): [...] of Aorta to screen for Anuerysm BMI 26.0-26.9,adult01/09/2023Easy yufhskabdfzu30/22/2023bnormal EKG103/10/2022 Mixed qvwclkvqhkfcig17/21/2023Post PTCA103/10/2022oronary artery disease of [place] artery of [place] heart with stable angina hdbjlpsa54/18/2023 Assessment & Plan (05/21/2023 11:48 AM EDT): If has chest pain, heaviness, and SOB and Diaphoresis Assessment & Plan (11/05/2022 2:14 PM EDT): F/U Dr. Zamora Continue Current Meds Gout11/05/2022 Assessment & Plan (11/05/2022 2:15 PM EDT): No MS kidney Stones Kidney aopkrg1211/05/2022 Assessment & Plan (11/05/2022 2:14 PM EDT): He is on Allopurinol Primary idsqurazkjwe51/18/2023 Assessment & Plan (11/05/2022 2:14 PM EDT): Our specific goals, for your hypertension, is to keep your blood pressure less than 140/90, and theimportance of weight control. We made recommendations on [...] DASH diet handouts Malnutrition of mild degree (HHS-HCC)08/29/2022 Overview (11/05/2022): Last Assessment & Plan: Assessment: Patient on liquid diet. Plan: - Advance to regular diet Adverse reaction to antiplatelet agent08/27/20225630Mjrefvvwc72/10/2023 Overview (11/05/2022): Last Assessment & Plan: S/p [...] Na - Management per urology, pending discharge/transfer Vloctnlkeabq98/10/2023 Overview (11/05/2022): Last Assessment & Plan: Assessment: WBC count downtrending. Blood and urine cultures negative. On Zosyn since 08/27 Plan: - D/c zosyn per primary Myocardial aomaztiinz79/10/2023 Overview (11/05/2022): Last Assessment & Plan: Assessment: STEMI on 08/19/2022 s/p JUHI Plan - Continue dual antiplatelet therapy with aspirin and ticagrelor Type 2 diabetes mellitus without complication, without long-term current use of vfkvpyl6808/27/2022 Overview (11/05/2022): Last Assessment & Plan: Assessment: [...] of healthy diet and exercise. Recommend Jardiance Immunizations ImmunizationAdministration DatesNext DueAS03 Bjhpkehg17/29/2019,12/24/2017 Influenza Nasal, Irhakexjetg83/01/2023,11/18/2020,10/20/2015,11/06/2014 Influenza, High Dose Seasonal, Preservative Free11/18/2023,12/26/2021,12/21/2016 ,11/23/2015Influenza, High-dose Seasonal, Quadrivalent, Preservative Free 11/19/2022,12/16/2019Influenza, Seasonal, Quadrivalent, Lmnsoyazkm47/08/2022, 11/10/2020Influenza, live, fyfzfxogfx66/01/2023Pneumococcal Conjugate PCV 13 11/06/2014Pneumococcal Polysaccharide DNLZ7320Tdap03/27/2021 Social History Tobacco UseTypesPacks/DayYears UsedDateSmoking Tobacco: NeverSmokeless Tobacco: Never Tobacco Cessation:Counseling Given: Not Answered Alcohol UseStandard Drinks/WeekCommentsDefer0 (1 standard drink = 0.6 oz pure alcohol)PHQ-2AnswerDate RecordedPatient Health Questionnaire-2 Julfo370 Sex and Gender InformationValueDate RecordedSex Assigned at BirthNot on file Legal QrmIymv7710/09/2022 9:48 AM EDTGender IdentityNot on fileSexual Orientation Not on file Last Filed Vital Signs Vital SignReadingTime TakenCommentsBlood Ejzorbxa056/72004/02/2024 1:08 PM EST Cvggg4921/13/2025 1:08 PM ESTTemperature--Respiratory Ybac837206/18/2023 10:37 AM EDTOxygen Lduineqfdg48%04/02/2024 1:08 PM ESTInhaled Oxygen Concentration-- Rmeyxs98 kg (183 lb)04/02/2024 1:08 PM MKVQubare433.3 cm (5' 9 )04/02/2024 1:08 PM ESTBody Mass Index27.02004/02/2024 1:08 PM EST Plan of Treatment Health MaintenanceDue DateLast DoneCommentsDiabetes: Retinopathy Screening 06[birth year]18/1955Diabetes: Hemoglobin A1C, 06/18/2023, 03/12/2023 Influenza Vaccine (#1), 11/19/2022, 02/18/2022, Additional history existsMedicare Annual Wellness (AWV), 03/12/2023 Diabetes: Urine Protein Posmgnjfe06, 03/15/2023neumococcal Vaccine: 65+ MucinFuoxkjejk41/01/2017, 11/06/2014 Procedures Procedure NamePriorityDate/TimeAssociated DiagnosisCommentsMICROALBUMIN / CREATININE URINE EPRIMCduppkm01/14/2025 8:19 AM EST Medicare annual wellness visit, initial Type 2 diabetes mellitus without complication, without long-term current use of insulin (HCC) POCT GLYCATED HEMOGLOBIN, LNZHYJemmzzs52/13/2025 1:28 PM EST Type 2 diabetes mellitus without complication, without long-term current use of insulin (HCC) from Last 3 Months or Most Recently Relevant to Health Maintenance Results * Microalbumin / creatinine urine ratio (04/03/2024 8:19 AM EST)ComponentValue Ref RangeTest MethodAnalysis TimePerformed AtPathologist SignatureCREATININE, RANDOM IBLXZ89311 - 320 mg/dLQUESTALBUMIN, URINE0.9See Note: mg/dLQUEST Comment: Reference Range: Reference Range Not established ALBUMIN/CREATININE RATIO, RANDOM URINE8<30 mg/g creatQUESTComment: The ADA defines abnormalities in albumin excretion as follows: Albuminuria Category ?Result (mg/g creatinine) Normal to Mildly increased <30 Moderately increased ? 30-299 Severely increased > OR = 300 The ADA recommends that at least two of three specimens collected within a 3-6 month period be abnormal before considering a patient to be within a diagnostic category. Specimen (Source)Anatomical Location / LateralityCollection Method / Volume Collection TimeReceived TimeUrineUrine specimen obtained by clean catch procedure / Zsnhmoj5204/03/2024 8:19 AM EST04/03/2024 3:38 PM EST Narrative [facility] - 04/05/2024 4:17 AM EST FASTING:YES FASTING: YES Resulting Agency Comment Performing Organization Information ?Site ID: QPT ?Name: [facility] ?Address: [address] [place] [address], [address] [place] [id number] ?Director: Brennon Zhong MD Authorizing ProviderResult TypeResult StatusChristiano Coppola MDLAB URINE ORDERABLES Final ResultPerforming OrganizationAddressCity/State/ZIP CodePhone Number [facility] * (ABNORMAL) POCT Glycated hemoglobin, total (04/02/2024 1:28 PM EST)Component ValueRef RangeTest MethodAnalysis TimePerformed AtPathologist Signature Hemoglobin A1C6.7Specimen (Source)Anatomical Location / LateralityCollection Method / VolumeCollection TimeReceived LqmgFojjh26/13/2025 1:28 PM EST Narrative Authorizing ProviderResult TypeResult StatusChristiano Coppola MDPOINT OF CARE TEST ENTER/EDIT ORDERABLESFinal Result from Last 3 Months or Most Recently Relevant to Health Maintenance Insurance Care Teams Team MemberRelationshipSpecialtyStart DateEnd Date Christiano Coppola MD [address] [facility] [address] [place] [address] PCP - GeneralFamily Medicine10/09/22 Christiano Copploa MD [address] [place] [address] [facility] - UHC4/
--- OUTSIDE RECORDS SUMMARY | 2024-12-16 08:53 | XMS_ITS | Encounter Summary ---
Author Organization [facility] Address [address] [place] [address] Care Team Providers Care Server Software Engineer Name Role Phone Christiano Peguero MD Primary Care Provider [phone] Christiano Peguero MD Unavailable Encounter Details DateTypeDepartmentCare Team (Latest Contact Info)Sbzehqcmeeu83/11/2024Clinisync Result Encounter [facility] External Department Unsolicited Provider, Generic External Data Social History Tobacco UseTypesPacks/DayYears UsedDateSmoking Tobacco: NeverSmokeless Tobacco: NeverAlcohol UseStandard Drinks/WeekCommentsDefer0 (1 standard drink = 0.6 oz pure alcohol)PHQ-2AnswerDate RecordedPatient Health Questionnaire-2 Score0 04/02/2024Sex and Gender InformationValueDate RecordedSex Assigned at BirthNot on fileLegal QqlUvds0110/09/2022 9:48 AM EDTGender IdentityNot on fileSexual OrientationNot on filedocumented as of this encounter Functional Status * Over the past 2 weeks, how often have you been bothered by any of the following problems?QuestionAnswerDate of AssessmentAuthorLittle interest or pleasure in doing thingsNot at all04/02/2024 12:00 PM Romina Lawton MA Feeling down, depressed, or hopelessNot at all04/02/2024 12:00 PM Romina Lawton MAPatient Health Questionnaire-2 Bmszy479 12:00 PM Romina Lawton MA documented as of this encounter Plan of Treatment Not on file documented as of this encounter Procedures Procedure NamePriorityDate/TimeAssociated DiagnosisCommentsXR ABDOMEN 1V 11/29/2023 4:56 AM EDT documented in this encounter Results * XR ABDOMEN 1V (11/29/2023 4:56 AM EDT)Anatomical RegionLateralityModalityOther Specimen (Source)Anatomical Location / LateralityCollection Method / Volume Collection TimeReceived Time11/29/2023 4:56 AM EDT Narrative 11/29/2023 4:59 AM EDT [facility] ?[address] ? [place], [facility] ?XRay Report ? Signed ? Patient: HAHL,OLAF W ? MR#: [id number] ?? : 1945 ?Acct:[id number] ?? Age/Sex: 78 / M ?ADM Date: 11/28/23 ?? Loc: RAD ? Attending Dr: Shanna Ivory M.D. ? Ordering Physician: Shanna Ivory M.D. ?? Date of Service: 11/28/23 ?? Procedure(s): XR abdomen 1V ?? Accession Number(s): [id number] ? cc: CHRISTIANO PEGUERO ; Shanna Ivory M.D. ? [facility] ? [address] [facility] ? [place] [address] ? Patient Name: ?? OLAF BRIONES ? MRN: [employer]:[id number] ? date: 1945 ?Sex: M ?? Assigned Patient Location: RAD ?? Current Patient Location: ? Accession/Order Number: [id number] ?? Exam Date: 11/28/2023 ??08:32 ?Report Date: 11/29/2023 ??04:56 ? At the request of: ?? SHANNA ??CACHORRO ? Procedure: ??XR abdomen 1V ? EXAMINATION: XR abdomen 1V ? HISTORY: Kidney Stones ? COMPARISON: XR abdomen 11/20/2022 ? FINDINGS: ?? KIDNEY/URETER - RIGHT: Numerous tiny calcifications projecting over the ?? kidney. ?? KIDNEY/URETER - LEFT: Numerous calcifications projecting over kidney, largest ?? is 5 mm. ?? PELVIS: No appreciable ureteral stones. ? BOWEL: No abnormal dilation or deviation. ?? BONES: No acute abnormality. ?? OTHER: Negative. No abnormal gaseous collections. ? XR/XR abdomen 1V ?? IMPRESSION: ? 1. Grossly stable bilateral nephrolithiasis. ? Electronically authenticated by: ANTONI ??SÁNCHEZ ?? Date: 11/29/2023 ??04:56 ? Dictated By: ?Antoni Anders M.D. ? Signed By: ?11/29/239 ? DD/ ? TD/TT: ? Optometrist President/Practice Owner: Procedure Note Radiology, Radiologist, - 11/29/2023 [place] [address] XRay Report Signed Patient: OLAF BRIONES WMR#: [id number] : 1945cct:[id number] Age/Sex: 78 / MADM Date: 11/28/23 Loc: RAD Attending Dr: Shanna Ivory M.D. Ordering Physician: Shanna Ivory M.D. Date of Service: 11/28/23 Procedure(s): XR abdomen 1V Accession Number(s): [id number] cc: CHRISTIANO PEGUERO ; Shanna Ivory M.D. [facility] [place] [id number] Patient Name: OLAF BRIONES MRN: [id number] date: 1945 Sex: M Assigned Patient Location: RAD Current Patient Location: Accession/Order Number: [id number] Exam Date: 11/28/2023 08:32 Report Date: 11/29/2023 [...] 04:56 Dictated By: Antoni Anders M.D. Signed By:11/29/23458 DD/ 5 TD/TT: Optometrist President/Practice Owner: Authorizing ProviderResult TypeResult StatusGeneric External Data Provider CLINISYNC IMAGINGFinal Result documented in this encounter Visit Diagnoses Not on filedocumented in this encounter Additional Health Concerns AssessmentNoted TimePHQ-9 Depression Total Score: 9006/18/2023 11:06 AM EDT documented as of this encounter Care Teams Team MemberRelationshipSpecialtyStart DateEnd Date Christiano Peguero MD [address] [facility] [address] [place] [address] PCP - [facility]10/09/22 Christiano Peguero MD [address] [facility] [address] [place] [address] PCP - [facility]/documented as of this encounter
--- OUTSIDE RECORDS SUMMARY | 2024-12-16 08:53 | XMS_ITS | Clinical Summary ---
Author Organization [facility] Address [address] [place] [address] Care Team Providers Care Manager Global Communications Name Role Phone Unavailable Primary Care Provider Unavailabl e Social History Tobacco UseTypesPacks/DayYears UsedDateSmoking Tobacco: Never AssessedUT Safety & EnvironmentAnswerDate RecordedFear of Current or Ex-PartnerNot on file 04/11/2023Emotionally AbusedNot on file04/11/2023hysically AbusedNot on file 04/11/2023Sexually AbusedNot on file04/11/2023hysically or Sexually AbusedNot on file04/11/2023Sex and Gender InformationValueDate RecordedSex Assigned at BirthNot on fileLegal IhkXlgi8408/17/2021 12:42 AM EDTGender IdentityNot on file Sexual OrientationNot on file Plan of Treatment Health MaintenanceDue DateLast DoneCommentsMedicare Annual Wellness (AWV) 1945Depression Tkdbgfsbm18/30/1958Adult Jjcddsz1606/18/1967Pneumococcal Vaccine: 50+ Years (1 of 1 - PCV)06/18/1995Zoster Vaccines (1 of 2)06/18/1995 Fall Risk Gavebqjca42/30/2011COVID-19 Vaccine ( - 2024- season)2024 Influenza Vaccine (#1)2024HIB VaccinesAged OutNo longer eligible based on patient's age to complete this topicHPV VaccinesAged OutNo longer eligible based on patient's age to complete this topicIPV VaccinesAged OutNo longer eligible based on patient's age to complete this topicMeningococcal B VaccineAged OutNo longer eligible based on patient's age to complete this topicMeningococcal VaccineAged OutNo longer eligible based on patient's age to complete this topic Rotavirus VaccinesAged OutNo longer eligible based on patient's age to complete this topic Insurance
--- OUTSIDE RECORDS SUMMARY | 2024-12-16 08:53 | XMS_ITS | Clinical Summary ---
Author Organization [facility] Address [address] [place] [address] Phone Care Team Providers Care Want Ad Clerk Name Role Phone Christiano Coppola MD Primary Care Provider [phone] Allergies Active AllergyReactionsCriticalityNoted DateCommentsAlbuterolHeadacheLow 01/08/20232407CffeebmxdbgsxokardtCylxZti92/21/2023 Medications MedicationSigDispense QuantityRefillsLast FilledStart DateEnd DateStatus allopurinol (Zyloprim) 300 mg tablet Take 1 tablet (300 mg) by mouth once daily.Active amLODIPine (Norvasc) 5 mg tablet Take 1 tablet (5 mg) by mouth once daily.Active nitroglycerin (Nitrostat) 0.[address] 1 tablet (0.4 mg) under the tongue. Place 1 tablet under the tongue every 5 minutes up to 3 doses as needed for chest pain. Call 911 if pain persists Active lisinopril 2.5 mg tablet Take 1 tablet (2.5 mg) by mouth once daily.Active atorvastatin (Lipitor) 40 mg tablet Take 1 tablet (40 mg) by mouth once daily.Active citalopram (CeleXA) 10 mg tablet Take 1 tablet (10 mg) by mouth once daily.06/18/2023ctive carvedilol (Coreg) 3.125 mg tablet Indications:Arteriosclerotic cardiovascular disease,Essential hypertensionTake 1 tablet (3.125 mg) by mouth 2 times a day with meals. 60 tablet 11006/26/2023ctive aspirin 81 mg EC tablet Take 1 tablet (81 mg) by mouth every other day.Active Active Problems ProblemNoted DateDiagnosed DateNever smoked qkqwyqm8306/26/2023MI 28.0-28.9,adult 01/09/2023Easy icpnoxooektt54/22/2023bnormal EKG103/10/2022Mixed hyperlipidemia 01/08/2023rteriosclerotic cardiovascular mpsnqoi5801/08/2023ost PTCA103/10/2022 Essential gwngmvbyokyj64/21/2023 Resolved Problems ProblemNoted DateDiagnosed DateResolved VsidQyjwstjmufxz53 Immunizations ImmunizationAdministration DatesNext DueFlu vaccine, trivalent, preservative free, HIGH-DOSE, age 65y+ (Fluzone)12/26/2021Influenza, seasonal, injectable 4Pfizer Purple Cap IOUG-JgU-589/20/2021,04/12/2020,03/22/2020 Pneumococcal polysaccharide vaccine, 23-valent, age 2 years and older (PNEUMOVAX 23)02/19/2016 Social History Tobacco UseTypesPacks/DayYears UsedDateSmoking Tobacco: NeverSmokeless Tobacco: NeverAlcohol UseStandard Drinks/WeekCommentsNever0 (1 standard drink = 0.6 oz pure alcohol)Sex and Gender InformationValueDate RecordedSex Assigned at Not on fileLegal CalIsbf33/26/2022 10:21 AM ESTGender IdentityNot on fileSexual OrientationNot on file Last Filed Vital Signs Vital SignReadingTime TakenCommentsBlood Crlzgcdg312/5801 11:12 AM EST Jqklh546103/13/2024 11:12 AM ESTTemperature--Respiratory Rate--Oxygen Saturation-- Inhaled Oxygen Concentration--Jmsgdt33.8 kg (187 lb)03/13/2024 11:12 AM EST Xdpiad250.7 cm (5' 8 )03/13/2024 11:12 AM ESTBody Mass Index28.43003/13/2024 11:12 AM EST Plan of Treatment Health MaintenanceDue DateLast DoneCommentsLipid Panel1945Medicare Annual Wellness Visit (AWV)1945Hepatitis C Rydqhavne32/30/1964Zoster Vaccines (1 of 2)06/18/1995RSV High Risk: (Elderly (60+) or Population) (1 - 1-dose 75+ series)2020Influenza Vaccine (#1)509/, 11/06/2023, 11/19/2022, Additional history existsCOVID-19 Vaccine ( season) 512/, 04/12/2020, 1DTaP/Tdap/Td Vaccines (2 - Td or Tdap)/2Pneumococcal ZfjfzptTnksmqyxd49/01/2017, 11/06/2014, 09/11/2010HIB VaccinesAged OutNo longer eligible based on patient's age to complete this topicHPV VaccinesAged OutNo longer eligible based on patient's age to complete this topicHepatitis A VaccinesAged OutNo longer eligible based on patient's age to complete this topicHepatitis B VaccinesAged OutNo longer eligible based on patient's age to complete this topicIPV VaccinesAged OutNo longer eligible based on patient's age to complete this topicMeningococcal VaccineAged OutNo longer eligible based on patient's age to complete this topic Rotavirus VaccinesAged OutNo longer eligible based on patient's age to complete this topic Insurance Care Teams Team MemberRelationshipSpecialtyStart DateEnd Date [facility] Coppola [facility]ayhavdf[facility]
--- OUTSIDE RECORDS SUMMARY | 2024-12-16 08:54 | XMS_ITS | Encounter Summary ---
Author Organization [facility] Address [address] [place] [address] Care Team Providers Care Impregnator Helper Name Role Phone Christiano Peguero MD Primary Care Provider [phone] Christiano Peguero MD Unavailable Encounter Details DateTypeDepartmentCare Team (Latest Contact Info)Cukpypawakd34/26/2024linisync Result Encounter [facility] External Department Unsolicited Provider, Generic External Data Social History Tobacco UseTypesPacks/DayYears UsedDateSmoking Tobacco: NeverSmokeless Tobacco: NeverAlcohol UseStandard Drinks/WeekCommentsDefer0 (1 standard drink = 0.6 oz pure alcohol)PHQ-2AnswerDate RecordedPatient Health Questionnaire-2 Score0 04/02/2024Sex and Gender InformationValueDate RecordedSex Assigned at BirthNot on fileLegal HaaOrdr0610/09/2022 9:48 AM EDTGender IdentityNot on fileSexual OrientationNot on filedocumented as of this encounter Functional Status * Over the past 2 weeks, how often have you been bothered by any of the following problems?QuestionAnswerDate of AssessmentAuthorLittle interest or pleasure in doing thingsNot at all04/02/2024 12:00 PM Romina Lawton MA Feeling down, depressed, or hopelessNot at all04/02/2024 12:00 PM Romina Lawton MAPatient Health Questionnaire-2 Wfpqy242 12:00 PM Romina Lawton MA documented as of this encounter Plan of Treatment Not on file documented as of this encounter Procedures Procedure NamePriorityDate/TimeAssociated DiagnosisCommentsXR CHEST 2V09/13/2023 6:19 PM EDT documented in this encounter Results * XR CHEST 2V (09/13/2023 6:19 PM EDT)Anatomical RegionLateralityModalityOther Specimen (Source)Anatomical Location / LateralityCollection Method / Volume Collection TimeReceived Time09/13/2023 6:19 PM EDT Narrative 09/13/2023 6:21 PM EDT [facility] ?[address] ? [place], [facility] ?XRay Report ? Signed ? Patient: HAHL,OLAF W ? MR#: [id number] ?? : 1945 ?Acct:[id number] ?? Age/Sex: 78 / M ?ADM Date: 09/13/23 ?? Loc: CARD ? Attending Dr: Non-Staff Physician M.D. ? Ordering Physician: Physician,Non-Staff M.D. ?? Date of Service: 09/13/23 ?? Procedure(s): XR chest 2V ?? Accession Number(s): [id number] ? cc: CHRISTIANO PEGUERO ; Physician,Non-Staff [place] ? [facility] ? [address] [facility] ? [place] [address] ? Patient Name: ?? OLAF BRIONES ? MRN: [facility]:[id number] ? date: 1945 ?Sex: M ?? Assigned Patient Location: CARD ?? Current Patient Location: CARD ?? Accession/Order Number: [id number] ?? Exam Date: 09/13/2023 ??08:42 ?Report Date: 09/13/2023 ??18:19 ? At the request of: ?? NON-STAFF ??PHYSICIAN ? Procedure: ??XR chest 2V ? EXAM: XR chest 2V ? HISTORY: Hypertension, Shortness Of Breath ? COMPARISON: None. ? TECHNIQUE: Upright PA and lateral chest x-ray ? FINDINGS: The heart is not enlarged and the vasculature is not distended. No ?? acute infiltrate, effusion or pneumothorax is identified. The osseous ?? structures are grossly intact. ? XR/XR chest 2V ?? IMPRESSION: ? No acute infiltrate or evidence of cardiac decompensation. ? Electronically authenticated by: DOMINGUEZ ??CASSANDRA ?? Date: 09/13/2023 ??18:19 ? Dictated By: ?Dominguez Weir M.D. ? Signed By: ?09/13/23 1821 ? DD/ 1819 ? TD/TT: ? Sewer Digger: Procedure Note Radiology, Radiologist, MD - 09/16/[address] [address] XRay Report Signed Patient: OLAF BROINES WMR#: [id number] : 1945cct:[id number] Age/Sex: 78 / MADM Date: 09/13/23 Loc: CARD Attending Dr: Non-Staff Physician [place] Ordering Physician: PhysicianYannickStaff Irving Date of Service: 09/13/23 Procedure(s): XR chest 2V Accession Number(s): [id number] cc: CHRISTIANO PEGUEOR ; PhysicianYannickStaff Irving The [address] [address] Patient Name: OLAF BRIONES MRN: [id number] date: 1945 Sex: M Assigned Patient Location: CARD Current Patient Location: CARD Accession/Order Number: [id number] Exam Date: 09/13/2023 08:42 Report Date: 09/13/2023 [...] 18:19 Dictated By: Dominguez Weir M.D. Signed By:09/13/23 182 DD/ 1819 TD/TT: Sewer Digger: Authorizing ProviderResult TypeResult StatusGeneric External Data Provider CLINISYNC IMAGINGFinal Result documented in this encounter Visit Diagnoses Not on filedocumented in this encounter Additional Health Concerns AssessmentNoted TimePHQ-9 Depression Total Score: 9006/18/2023 11:06 AM EDT documented as of this encounter Care Teams Team MemberRelationshipSpecialtyStart DateEnd Date Christiano Peguero MD [address] [place] [address] [facility] - [facility]22 Christiaon Peguero MD [address] [facility] [address] [place] [id number] PCP - [facility]/documented as of this encounter
--- OUTSIDE RECORDS SUMMARY | 2024-12-16 08:54 | XMS_ITS | Encounter Summary ---
Author Organization [facility] Address [address] [place] [address] Care Team Providers Care Steam Conditioner Filling Name Role Phone Christiano Coppola MD Primary Care Provider [phone] Christiano Coppola MD Unavailable Encounter Details DateTypeDepartmentCare Team (Latest Contact Info)Gkujlsjyegj51/26/2024linisync Result Encounter [facility] External Department Unsolicited Provider, Generic External Data Social History Tobacco UseTypesPacks/DayYears UsedDateSmoking Tobacco: NeverSmokeless Tobacco: NeverAlcohol UseStandard Drinks/WeekCommentsDefer0 (1 standard drink = 0.6 oz pure alcohol)PHQ-2AnswerDate RecordedPatient Health Questionnaire-2 Score0 04/02/2024Sex and Gender InformationValueDate RecordedSex Assigned at BirthNot on fileLegal DjvAdlt7010/09/2022 9:48 AM EDTGender IdentityNot on fileSexual OrientationNot on filedocumented as of this encounter Functional Status * Over the past 2 weeks, how often have you been bothered by any of the following problems?QuestionAnswerDate of AssessmentAuthorLittle interest or pleasure in doing thingsNot at all04/02/2024 12:00 PM Romina Lawton MA Feeling down, depressed, or hopelessNot at all04/02/2024 12:00 PM Romina Lawton MAPatient Health Questionnaire-2 Zosgs073 12:00 PM Romina Lawton MA documented as of this encounter Plan of Treatment Not on file documented as of this encounter Procedures Procedure NamePriorityDate/TimeAssociated DiagnosisCommentsRT PULMONARY FUNCTION TEST09/13/2023 7:44 AM EDT documented in this encounter Results * RT PULMONARY FUNCTION TEST (09/13/2023 7:44 AM EDT)Anatomical RegionLaterality ModalityOtherSpecimen (Source)Anatomical Location / LateralityCollection Method / VolumeCollection TimeReceived Time09/13/2023 7:44 AM EDT Narrative 09/23/2023 7:48 AM EDT [facility] ?[address] ? [place], [place] [address] ? Respiratory Report ? Signed ? Patient: HAHL,OLAF W ? MR#: [id number] ?? : 1945 ?Acct:[id number] ?? Age/Sex: 78 / M ?ADM Date: 09/13/23 ?? Loc: CARD ? Attending Dr: Non-Staff Physician M.D. ? Ordering Physician: Physician,Non-Staff M.D. ?? Date of Service: 09/13/23 ?? Procedure(s): RT pulmonary function test ?? Accession Number(s): [id number] ? cc: ?[facility] ? Test Date: ?2023-09-13 ?? Pat Name: ? OLAF BRIONES ?Department: ? Room: ? - ?? Gender: ? Male ? Laboratory Chief: ?? Corrine Salinas RRT ?? : ?1945 ? Requested By: [id number] ?? Order Number: [id number] ?Reading MD: ?? Martin Tucker ? Interpretive Statements ?? Spirometry was completed according to ATS criteria. Findings were considered ?? accurate and reproducible. No bronchodilator was administered due to normal ?? spirometric values. ? Spirometry: ?? -FEV1/FVC: Normal @ 74% ?? -FEV1: Normal @ 98% ?? -FVC: Normal @ 94% ? Flow-volume loop: ?? -'Scooping/coving' of the expiratory limb ?? -Mild flattening of inspiratory limb ? Impressions: ?? -Technically normal spirometry, though FEV1/FVC is trending towards a mild ?? obstructive pattern. ??Mild flattening of the inspiratory limb which may ?? indicate a variable extrathoracic obstruction. ??Clinical correlation ?? required. ? Electronically Signed On 09-23-2023 7:47:33 EDT by Martin Tucker ? Dictated By: ?Martin Tucker D.O. ? Signed By: ?08/05/24 0748 ? DD/ 0744 ? TD/TT: ? Sports Specialist: Procedure Note Radiology, Radiologist, - 09/23/2023 [place] [address] Respiratory Report Signed Patient: OLAF BRIONES WMR#: [id number] : 1945cct:[id number] Age/Sex: 78 / MADM Date: 09/13/23 Loc: CARD Attending Dr: Non-Staff Physician MLesly Ordering Physician: Eliana Martinez-Staff [place] Date of Service: 09/13/23 Procedure(s): RT pulmonary function test Accession Number(s): [id number] cc: [facility] Test Date: 2023-09-13 Pat Name: OLAF BRIONES Department: Room: - Gender: Male Laboratory Chief: Corrine Salinas RRT : 1945 Requested By: [id number] Order Number: [id number] Reading MD: Martin Tucker Interpretive Statements Spirometry [...] Martin Tucker D.O. Signed By:09/23/23 0748 DD/ 0744 TD/TT: Sports Specialist: Authorizing ProviderResult TypeResult StatusGeneric External Data Provider CLINISYNC IMAGINGFinal Result documented in this encounter Visit Diagnoses Not on filedocumented in this encounter Additional Health Concerns AssessmentNoted TimePHQ-9 Depression Total Score: 9006/18/2023 11:06 AM EDT documented as of this encounter Care Teams Team MemberRelationshipSpecialtyStart DateEnd Date Christiano Coppola MD [address] [facility] [address] [place] [address] PCP - [facility]10/09/22 Christiano Coppola MD [address] [facility] [address] [place] [address] PCP - [facility]/documented as of this encounter
--- OUTSIDE RECORDS SUMMARY | 2024-12-16 08:54 | XMS_ITS | Encounter Summary ---
Author Organization [facility] Address [address] [place] [address] Care Team Providers Care Fibreglass Laminator Name Role Phone Christiano Peguero MD Primary Care Provider [phone] Christiano Peguero MD Unavailable Encounter Details DateTypeDepartmentCare Team (Latest Contact Info)Zvdpvcwdckx76/17/2024Clinisync Result Encounter [facility] External Department Unsolicited Christiano Peguero MD [address] [facility] [address] [place] [address] Social History Tobacco UseTypesPacks/DayYears UsedDateSmoking Tobacco: NeverSmokeless Tobacco: NeverPHQ-2AnswerDate RecordedPatient Health Questionnaire-2 Ojrby961Sex and Gender InformationValueDate RecordedSex Assigned at BirthNot on fileLegal PaqWpfs9010/09/2022 9:48 AM EDTGender IdentityNot on fileSexual OrientationNot on filedocumented as of this encounter Functional Status * Over the past 2 weeks, how often have you been bothered by any of the following problems?QuestionAnswerDate of AssessmentAuthorLittle interest or pleasure in doing thingsNot at all04/02/2024 12:00 PM Romina Lawton MA Feeling down, depressed, or hopelessNot at all04/02/2024 12:00 PM Romina Lawton MAPatient Health Questionnaire-2 Cyysc155 12:00 PM Romina Lawton MA * QuestionAnswerDate of AssessmentAuthorTrouble falling or staying asleep, or sleeping too muchMore than half the days06/18/2023 11:06 AM Lucinda Paniagua, PAFeeling tired or having little energyMore than half the days06/18/2023 11:06 AM Lucinda Paniagua, PAPoor appetite or overeatingNot at all06/18/2023 11:06 AM Lucinda Paniagua, PAFeeling bad about yourself - or that you are a failure or have let yourself or your family downSeveral days06/18/2023 11:06 AM Lucinda Paniagua, PATrouble concentrating on things, such as reading the newspaper or watching televisionNot at all06/18/2023 11:06 AM Lucinda Paniagua, PAMoving or speaking so slowly that other people could have noticed? Or the opposite - being so fidgety or restless that you have been moving around a lot more than usual.Not at all06/18/2023 11:06 AM Lucinda Paniagua, PAThoughts that you would be better off or hurting yourself in some wayNot at all 06/18/2023 11:06 AM Lucinda Paniagua, PAPatient Health Questionnaire-9 Score 9006/18/2023 11:06 AM Lucinda Paniagua, PA documented as of this encounter Plan of Treatment Not on file documented as of this encounter Procedures Procedure NamePriorityDate/TimeAssociated WvhpoxenqDspbwxyoVVF13/17/2024 1:25 PM EST documented in this encounter Results * ITP (03/06/2023 1:25 PM EST)Anatomical RegionLateralityModalityOtherSpecimen (Source)Anatomical Location / LateralityCollection Method / VolumeCollection TimeReceived Time03/06/2023 1:25 PM EST Narrative 03/07/2023 7:16 AM EST [facility] ?[address] ? [place] [address] ?Cardiac Rehab Report ? Signed ? Patient: OLAF BRIONES W ? MR#: [id number] ?? : 1945 ?Acct:[id number] ?? Age/Sex: 77 / M ?ADM Date: 03/06/23 ?? Loc: CR ? Attending Dr: NAHOMI BUENO ? Ordering Physician: CHRISTIANO PEGUERO ?? Date of Service: 03/06/23 ?? Procedure(s): ITP ?? Accession Number(s): [id number] ? cc: ?[facility] ? Test Date: ?2023-03-06 ?? Pat Name: ? OLAF BRIONES ?Department: ? Room: ? - ?? Gender: ? Male ? Employee Benefits Attorney: ? : ?1945 ? Requested By: CHRISTIANO PEGUERO ?? Order Number: [id number] ?Reading MD: ?? TAIWO ??BALL ? Interpretive Statements ?? Session Date: ? Electronically Signed On 03-07-2023 7:16:02 EST by TAIWO ??BALL ? Dictated By: ?Ball,Taiwo D.O. ? Signed By: ?03/07/23715 ?03/07/23 07 ? DD/ 1325 ? TD/TT: ? Cellophane Bath Mixer: Procedure Note Radiology, Radiologist, - 03/07/2023 [place] [address] Cardiac Rehab Report Signed Patient: OLAF BRIONES R#: [id number] : 1945cct:[id number] Age/Sex: 77 / MADM Date: 03/06/23 Loc: CR Attending Dr: NAHOMI BUENO Ordering Physician: CHRISTIANO PEGUERO Date of Service: 03/06/23 Procedure(s): ITP Accession Number(s): [id number] cc: [facility] Test Date: 2023-03-06 Pat Name: OLAF BRIONES Department: Room: - Gender: Male Employee Benefits Attorney: : 1945 Requested By: CHRISTIANO PEGUERO Order Number: [id number] Jorden MD: TAIWO LYNNE Interpretive Statements Session Date: Electronically Signed On 03-07-2023 7:16:02 EST by TAIWO LYNNE Dictated By: Taiwo Lynne D.O. Signed By:03/07/23 0716 03/07/23 0716 DD/ 1325 TD/TT: Cellophane Bath Mixer: Authorizing ProviderResult TypeResult StatusRugomar Peguero MDCLINISYNC IMAGING Final Result documented in this encounter Visit Diagnoses Not on filedocumented in this encounter Care Teams Team MemberRelationshipSpecialtyStart DateEnd Date Christiano Peguero MD [address] [place] [address] [place] [address] [facility] - [facility]/09/[facility] Christiano Peguero MD [address] [place] [address] [place] [address] PCP - [facility]/documented as of this encounter
--- OUTSIDE RECORDS SUMMARY | 2024-12-16 08:54 | XMS_ITS | Encounter Summary ---
Author Organization [facility] Address [address] [place] [address] Care Team Providers Care Nursing Program Director Name Role Phone Christiano Peguero MD Primary Care Provider [phone] Christiano Peguero MD Unavailable Encounter Details DateTypeDepartmentCare Team (Latest Contact Info)Gnjckwjggpt71/26/2024linisync Result Encounter [facility] External Department Unsolicited Provider, Generic External Data Social History Tobacco UseTypesPacks/DayYears UsedDateSmoking Tobacco: NeverSmokeless Tobacco: NeverAlcohol UseStandard Drinks/WeekCommentsDefer0 (1 standard drink = 0.6 oz pure alcohol)PHQ-2AnswerDate RecordedPatient Health Questionnaire-2 Score0 04/02/2024Sex and Gender InformationValueDate RecordedSex Assigned at BirthNot on fileLegal JcjDyfn9310/09/2022 9:48 AM EDTGender IdentityNot on fileSexual OrientationNot on filedocumented as of this encounter Functional Status * Over the past 2 weeks, how often have you been bothered by any of the following problems?QuestionAnswerDate of AssessmentAuthorLittle interest or pleasure in doing thingsNot at all04/02/2024 12:00 PM Romina Lawton MA Feeling down, depressed, or hopelessNot at all04/02/2024 12:00 PM Romina Lawton MAPatient Health Questionnaire-2 [id number] 12:00 PM Romina Lawton MA documented as of this encounter Plan of Treatment Not on file documented as of this encounter Procedures Procedure NamePriorityDate/TimeAssociated DiagnosisCommentsCA ECHO DOPPLER CZHZZVYQ40/26/2024 3:04 PM EDT documented in this encounter Results * CA ECHO DOPPLER COMPLETE (09/13/2023 3:04 PM EDT)Anatomical RegionLaterality ModalityOtherSpecimen (Source)Anatomical Location / LateralityCollection Method / VolumeCollection TimeReceived Time09/13/2023 3:04 PM EDT Narrative 09/13/2023 3:05 PM EDT [facility] ?[address] ? [place], [facility] ? Cardiology Report ? Signed ? Patient: HAHL,OLAF W ? MR#: [id number] ?? : 1945 ?Acct:[id number] ?? Age/Sex: 78 / M ?ADM Date: 09/13/23 ?? Loc: CARD ? Attending Dr: Non-Staff Physician M.D. ? Ordering Physician: Physician,Non-Staff M.D. ?? Date of Service: 09/13/23 ?? Procedure(s): CA echo doppler complete ?? Accession Number(s): [id number] ? cc: CHRISTIANO PEGUERO ; Physician,Non-Staff M.Esau. ? Patient Name: ? OLAF NOLVIAMILTON ? MR#: [id number] ? : 1945 ? Exam Date: 09/13/2023 ?? Ordering Doctor: Non-Staff Physician ? ECHOCARDIOGRAM REPORT ? PROCEDURE: ? CA ECHO DOPPLER COMPLETE ? INDICATIONS: ? Hypertension, Coronary artery disease, shortness of breath ? COMPARISON: ? None. ? DESCRIPTION: ? COMPLETE ECHOCARDIOGRAM Real-time transthoracic ?? echocardiography with 2D, M-mode, spectral and color flow Doppler performed. ? QUALITY: ? Technical quality was good. ? LEFT VENTRICLE: ? Normal chamber size. Proximal septal hypertrophy (sigmoid ?? septum). ? LV EF: ? Global left ventricular systolic function is low normal limits; ?? visually estimated ejection fraction is 50 to 55%. ??Abnormal septal motion: ?? this may be related to bundle branch block. ?? DIASTOLIC: ? Diastolic function is indeterminate. ?? ATRIAL SEPTUM: ? Visually appears intact. ?? LEFT ATRIUM: ? Moderate dilatation. ?? RIGHT ATRIUM: ? Normal chamber size. ?? RIGHT VENTRICLE: ? Normal chamber size. Normal right ventricular systolic ?? function. ? TRICUSPID VALVE: ? Normal mobility and thickness. No stenosis with mild ?? regurgitation. No evidence of pulmonary hypertension. RVSP 29 mmHg ? MITRAL VALVE: ? Normal mobility and thickness. ?? No evidence of mitral valve ?? stenosis. ??There is no mitral annular calcification. Trivial mitral ?? regurgitation. ? AORTIC VALVE: ? Normal trileaflet appearance. ??Mild calcification. Normal ?? leaflet mobility. ??No evidence of aortic valve stenosis. No aortic ?? regurgitation. ? AORTIC ROOT: ? Normal diameter and appearance. ? PULMONIC VALVE: ? Normal thickness and mobility. No stenosis. No ?? regurgitation. ? PERICARDIUM: ? Anterior free space; trivial effusion versus fat pad. ? IVC: ? Collapses with inspirations. IVC is normal in size. ? CONCLUSION: ? 1. Global left ventricular systolic function is lower normal limits; visually ?? estimated ejection fraction is 50 to 55% ?? 2. The right ventricle is normal in size and systolic function ?? 3. The left atrium is moderately dilated ?? 4. Diastolic function is indeterminate ?? 5. Mild tricuspid regurgitation ?? 6. Anterior free space; trivial effusion versus fat pad ? Adult Echocardiography Procedure Report ?? Left Ventricle ?? LVEDD (3.7 - 5.6 cm): ? 5.06 cm ?? LVESD (2.2 - 4.0 cm): ? 4.04 cm ?? LVIVS thickness (0.6 - 1.2 cm): ? 1.12 cm ?? LVPW thickness (0.5 - 1.0 cm): ? 1.02 cm ?? e': ? 0.11 m/s ?? E - e': ? 5.98 ?? LVOT Max Gradient: ? 1.63 mm[Hg] ?? LVOT Area (cm2): ? 0.64 m/s ?? Peak Velocity (LVOT): ? 0.64 m/s ?? Mean Velocity (LVOT): ? 0.50 m/s ?? LVOT Diameter ? 2.28 cm ?? Left Atrium ?? LA Volume Index (2D A2C): ? 40.94 ml/m2 ?? Left Atrium Systolic Dimension: ? 3.85 cm ?? Mitral Valve ?? MV E to A Ratio: ? 0.93 ?? Mitral Valve A-Wave Peak Velocity: ? 0.70 m/s ?? Mitral Valve E-Wave Peak Velocity: ? 0.65 m/s ?? Right Ventricle ?? Aorta ?? AO Root Diam: ? 3.46 cm ?? Ascending Ao Diam: ? 2.63 cm ?? Aortic Valve ?? AoV Area (Peak Spencer): ? 1.82 cm2, 1.82 cm2 ?? AoV Area (VTI): ? 2.07 cm2, 2.07 cm2 ?? Peak Velocity(Antegrade Flow): ? 1.43 m/s ?? Peak Gradient(Antegrade Flow): ? 8.15 mm[Hg] ?? Mean Velocity(Antegrade Flow): ? 0.96 m/s ?? Mean Gradient(Antegrade Flow): ? 4.22 mm[Hg] ?? Velocity Time Integral: ? 36.76 cm ?? Tricuspid Valve ?? Peak Velocity (Regurgitant Flow): ? 2.56 m/s, 2.39 m/s ?? Pulmonic Valve ?? Mean Gradient: ? 2.41 mm[Hg] ?? Mean Velocity: ? 0.72 m/s ?? Peak Velocity: ? 1.07 m/s, 1.04 m/s ?? Peak Gradient: ? 4.32 mm[Hg], 4.56 mm[Hg] ?? Right Atrium ?? Right Atrium Systolic Pressure: ? 29.13 ml, 29.13 ml ? Dictated by: Ceci Shelton M.D. on 09/13/2023 at 15:00 ? Approved by: Ceci Shelton M.D. on 09/13/2023 at 15:04 ? Dictated By: ?Ceci Shelton M.D. ? Signed By: ?09/12/ 1505 ? DD/ 1504 ? TD/TT: ? [employer] Instructor: Procedure Note Radiology, Radiologist, - 09/13/2023 [place] [address] Cardiology Report Signed Patient: OLAF BRIONES WMR#: [id number] : 6Acct:[id number] Age/Sex: 78 / MADM Date: 09/13/23 Loc: CARD Attending Dr: Eliana-Staff Physician Villatoro Ordering Physician: Sisi Martinez M.D. Date of Service: 09/13/23 Procedure(s): CA echo doppler complete Accession Number(s): [id number] cc: CHRISTIANO PEGUERO ; Sisi Martinez M.D. Patient Name: OLAF BRIONES MR#: [id number] : 1945 Exam Date: 09/13/2023 Ordering Doctor: [...] M.D. Signed By:09/13/23 1505 DD/ 1504 TD/TT: [employer] Instructor: Authorizing ProviderResult TypeResult StatusGeneric External Data Provider CLINISYNC IMAGINGFinal Result documented in this encounter Visit Diagnoses Not on filedocumented in this encounter Additional Health Concerns AssessmentNoted TimePHQ-9 Depression Total Score: 9006/18/2023 11:06 AM EDT documented as of this encounter Care Teams Team MemberRelationshipSpecialtyStart DateEnd Date Christiano Peguero MD [address] [facility] [address] [place] [address] [facility] - [facility] Christiano Peguero MD [address] [facility] [address] [place] [address] PCP - [facility]/documented as of this encounter
--- OUTSIDE RECORDS SUMMARY | 2024-12-16 08:54 | XMS_ITS | Encounter Summary ---
Author Organization [facility] Address [address] [place] [address] Care Team Providers Care Coppersmith Helper Name Role Phone Christiano Peguero MD Primary Care Provider [phone] Christiano Peguero MD Unavailable Encounter Details DateTypeDepartmentCare Team (Latest Contact Info)Wumvznelgjs51/23/2024Clinisync Result Encounter [facility] External Department Unsolicited Christiano Peguero MD [address] [facility] [address] [place] [address] Social History Tobacco UseTypesPacks/DayYears UsedDateSmoking Tobacco: NeverSmokeless Tobacco: NeverPHQ-2AnswerDate RecordedPatient Health Questionnaire-2 [id number] and Gender InformationValueDate RecordedSex Assigned at BirthNot on fileLegal TpgZydb1810/09/2022 9:48 AM EDTGender IdentityNot on fileSexual OrientationNot on filedocumented as of this encounter Functional Status * Over the past 2 weeks, how often have you been bothered by any of the following problems?QuestionAnswerDate of AssessmentAuthorLittle interest or pleasure in doing thingsNot at all04/02/2024 12:00 PM Romina Lawton MA Feeling down, depressed, or hopelessNot at all04/02/2024 12:00 PM Romina Lawton MAPatient Health Questionnaire-2 [id number] 12:00 PM Romina Lawton MA * QuestionAnswerDate [...] as of this encounter Procedures Procedure NamePriorityDate/TimeAssociated DiagnosisCommentsNM TARA PERF SPECT REST STR06/11/2023 1:27 PM EDT documented in this encounter Results * NM TARA PERF SPECT REST STR (06/11/2023 1:27 PM EDT)Anatomical RegionLaterality ModalityOtherSpecimen (Source)Anatomical Location / LateralityCollection Method / VolumeCollection TimeReceived Time06/11/2023 1:27 PM EDT Narrative 06/11/2023 1:28 PM EDT [facility] ?[address] ? [place] [address] ?Nuclear Medicine Report ? Signed ? Patient: OLAF BRIONES ? MR#: [id number] ?? : 1945 ?Acct:[id number] ?? Age/Sex: 77 / M ?ADM Date: 06/11/23 ?? Loc: NM ? Attending Dr: CHRISTIANO PEGUERO ? Ordering Physician: CHRISTIANO PEGUERO ?? Date of Service: 06/11/23 ?? Procedure(s): NM tara perf SPECT rest ?? str ?? Accession Number(s): [id number] ? cc: CHRISTIANO PEGUERO ? Patient Name: ? OLAF BRIONES ? MR#: [id number] ? : 1945 ? Exam Date: 06/11/2023 ?? Ordering Doctor: DR CHRISTIANO PEGUERO M.D. ? RADIOLOGY REPORT ? PROCEDURE: ? NM TARA PERF SPECT REST ?? STR ? COMPARISON: ? None. ? INDICATIONS: ? CHEST PAIN, CORONARY ARTERY DISEASE ? TECHNIQUE: ? Exam Description: ? Stress/Rest one day protocol gated SPECT ?? Rest Imaging: ?10.3 mCi Tc-99m Cardiolite IV on 06/11/2023 ?? Stress Imaging ? 30.2 mCi Tc-99m Cardiolite IV on 06/11/2023 ?? Exercise Protocol: ? Ivan ? Heart Rate (bpm): ? Rest: 70 ? Max: 134 ?PMHR: 93 ?? Blood Pressure: ? Rest: 168/82 ?Max: 192/86 ?? Exercise Time: ? Minutes: 4 ?Seconds: 24 ?? Stage Reached: ? Stage: 2 ?Mets 7.0 ?? Symptoms: ? Rest and peak stress ECG findings were abnormal and the exercise portion of ?? the study was abnormal per attending physician Dr. Tucker due to EKG changes. ?? For more details please see separate cardiac stress test report. ?? FINDINGS: ? QUALITY OF STUDY: ? PERFUSION DEFECT: ?LOCATION: ? Basal inferoseptal. Basal inferior. ?SIZE: ? Small (1-2 segments). ?SEVERITY: ?Mild. ?TYPE: ?Persistent. ?? WALL MOTION: ? Normal. ?? LV SIZE: ? Normal. 106 mL. ?? TID / TCD: ? None; ??0.9 ?? LVEF: ? Normal. Calculated EF 61%. ? SUMMARY: ? Myocardial perfusion imaging study has ABNORMAL findings. ? CONCLUSION: ? 1. Small fixed area of mildly decreased uptake in the inferior wall, RCA ?? distribution on stress images with no evidence of reversibility ?? 2. Abnormal exercise test secondary to EKG changes ? Dictated by: Amrik Dubose MD on 06/11/2023 at 13:24 ? Approved by: Amrik Dubose MD on 06/11/2023 at 13:27 ? Dictated By: ?Amrik Dubose M.D. ? Signed By: ?06/10/24 1328 ? DD/ 1327 ? TD/TT: ? Director Communications: Procedure Note Radiology, Radiologist, MD - 06/12/2023 [place] [address] Nuclear Medicine Report Signed Patient: OLAF BRIONES WMR#: [id number] : 6Acct:[id number] Age/Sex: 77 / MADM Date: 06/11/23 Loc: NM Attending Dr: CHRISTIANO PEGUERO Ordering Physician: CHRISTIANO PEGUERO Date of Service: 06/11/23 Procedure(s): NM tara perf SPECT rest str Accession Number(s): [id number] cc: CHRISTIANO PEGUERO Patient Name: OLAF BRIONES MR#: [id number] : 1945 Exam Date: 06/11/2023 Ordering Doctor: [...] study was abnormal per attending physician Dr. Samsa due to EKGchanges. For more details please [...] M.D. Signed By:06/11/23 1328 DD/ 1327 TD/TT: Director Communications: Authorizing ProviderResult TypeResult StatusChristiano Peguero MDCLINISYNC IMAGING Final Result documented in this encounter Visit Diagnoses Not on filedocumented in this encounter Care Teams Team MemberRelationshipSpecialtyStart DateEnd Date Christiano Peguero MD [address] [facility] [address] [place] [address] [facility]10/09/22 Christiano Peguero MD [address] [facility] [address] [place] [address] PCP - [facility]/documented as of this encounter
--- OUTSIDE RECORDS SUMMARY | 2024-12-16 08:56 | XMS_ITS | CCD ---
Author Organization [facility] CliniSyde Care Team Providers Care Dispatch Supervisor Name Role Phone Jame Barraza Unavailable Unavailable Unavailable JAME BARRAZA Primary Care Physician [phone] DR SHANNA IVORY Attending Unavailable CHRIS, DR JAME Bowers Primary Care Unavailable CACHORRO, DR OTERO Admitting Unavailable DR SHANNA IVORY Consulting Unavailable [place], DR AMNA Saucedo Consulting Unavailable DOMINGUEZ GUTIERREZ Admitting Unavailable DOMINGUEZ GUTIERREZ Attending Unavailable DR JAME BARRAZA Primary Care Unavailable NON STAFF Primary Care Provider Dom Cochran DO [facility] Provider DO Steven Zamora Attending Provider NON STAFF Primary Care Provider Unavailsigrid Cochran DO [facility] Provider DO Steven Zamora Admit Provider DO Steven Zamora Attending Provider MD Juanito Barney Other Provider JAME BARRAZA Primary Care Physician Jame Barraza MD Primary Care Provider [phone] Daniel Hernandez Unavailable DAVID ANDREWS Attending Unavailable DAVID ANDREWS Admitting Unavailable Dr. Jame Barraza Primary Care Rodrigo Cabral, Dr. [place] Attending Unavaila ashley Ling, Dr. Canada Referring Unavaila ashley Barraza, Dr. Jame Fountain Primary Care Unavailab Curtis, Dr. Daniel Guerrero Primary Care Unavailab alda Ling, Dr. [place] Attending Unavaila ashley Ling, Dr. [place] Referring Unavaila ashley Zamora, Dr. Ben Wilson Attending Kushal Hernandez, Dr. Daniel Guerrero Primary Care Unavailab alda Barraza, Dr. [...] Primary Care Unavailable Shanna IVORY Attending Unavailable CACHORRO, Shanna Sánchez Attending Unavailable Shanna IVORY Attending Unavailable DAV PEGUERO Attending Unavailable DAV PEGUERO Attending Unavailable LUCINDA VICKERS Attending Unavailable Dav Peguero Primary Care Unavailable Benigno Harper Attending Benigno Nye Admitting Dav Carbajal MD Primary Care Provider Benigno Harper MD Attending Provider Rachna HAHN, Alonzo Bobo Attending Unavailable Rachna HAHN, Alonzo Bobo Attending Unavailable Allergies Allergy ClassificationReported Allergen(s)Allergy TypeDate of OnsetReaction(s) Facility (20 sources)Albuterol; Translations: [albuterol]Drug Ztnhkwo59-04-2738Aupltkvh (finding), Other: See Comments, [facility] (20 sources)hydroCHLOROthiazide; Translations: [hydroCHLOROthiazide TABS]Drug Jxszkzd75-34-6879Ibcuotgp of skin (disorder), [facility] (6 sources)Sulfamethoxazole / Trimethoprim; Translations: [sulfamethoxazole-trimethoprim]Drug AllergyUnknown (qualifier value)[facility] (1 source)AlbuterolDrug AllergyThe [facility] Repository (9 sources)hydroCHLOROthiazide; Translations: [HYDROCHLOROTHIAZIDE]Drug Allergy 98-01-0538IvjtBadSt. [facility] of [facility] Rep[facility] (5 sources)Adhesive Tape; Translations: [adhesive tape]Propensity to adverse yzbtapnhe39-82-1867YdnyDakntfatfKettering [facility] (5 sources)Amoxicillin; Translations: [amoxicillin]Drug Ienyjeg68-53-7061Bgmds in urine (finding)[facility] (5 sources)hydroCHLOROthiazideDrug Ddmpgvc30-18-2672[facility] (1 source)AlbuterolDrug Iqqelgg09-48-8832ArbqffqxmSelect [facility] [place] [facility] (1 source)AmoxicillinDrug Zcsyoip24-82-2042FeyalkfvwSelect [facility] [place] [facility] (1 source)hydroCHLOROthiazideDrug Wmhqcxj83-74-8362XeguqcrbjSelect Medical [facility]ty [facility] [place] Repository Medications Current Medications MedicationDrug Class(es)DatesSig (Normalized)Sig (Original)Albuterol (1 source)beta2-Adrenergic AgonistAlbuterol Activeallopurinol 300 mg oral tablet (20 sources)Xanthine Oxidase InhibitorStart: 95-53-9583xyzx 1 tablet by mouth once dailyAllopurinol 300 mg Tablet Active 300 MG PO Daily August 20, 2022 12:00amComment on above:Take 300 mg by mouth once daily.amLODIPine 5 mg oral tablet (20 sources)Dihydropyridine Calcium Channel BlockerStart: 02-76-8132wbdw 1 tablet by mouth once dailyAmlodipine 5 mg Tablet Active 5 MG PO Daily August 20, 2022 12:00amComment on above:Take 5 mg by mouth once daily.aspirin 81 mg delayed release oral tablet (20 sources)Platelet Aggregation Inhibitor, Nonsteroidal Anti-inflammatory Drug Start: 01-09-2023 End: 25-49-4623kwaq 1 tablet by mouth every other dayaspirin 81 mg EC tablet Indications: Arteriosclerotic cardiovascular disease Take 1 tablet (81 mg) by mouth every other day. 45 tablet 3 01/09/2023 01/09/2024 ActiveStart: 11-26-2022 [facility] ASP[facility]IN EC 81 MG TABLET [facility] ASPIRIN EC 81 MG TABLET Start Date: 11/26/22 Status: OrderedStart: 11-24-2020 End: 37-45-3265yzpr 1 tablet by mouth once dailyCVS Aspirin Low Dose 81 MG EC tablet TAKE 1 TABLET BY MOUTH EVERY DAY FOR 14 DAYS 08/22/2022 Activetake 1 tablet by mouth once dailyAspirin 81 81 MG 1 tablet Orally Once a day Active Comment on above:Take 81 mg by mouth once daily.atorvastatin 40 mg oral tablet (20 sources)HMG-CoA Reductase InhibitorStart: 49-47-4956aknj 1 tablet by mouth once daily at bedtimeAtorvastatin 40 mg tablet Active 40 MG PO Daily at bedtime June 25, 2024 12:00amStart: 15-78-3741dsvj 1 tablet by mouth once daily atorvastatin 40 mg Tab 40 mg = 1 tab(s), Oral, Daily, Refills(s) 0 Start Date: 11/29/23 Status: OrderedStart: 08-22-2022 End: 54-99-4941dyog 1 tablet by mouth in the morningatorvastatin (Lipitor) 80 MG tablet Take 80 mg by mouth in the morning. 09/08/2022 Activecarvedilol 3.125 mg oral tablet (20 sources)alpha-Adrenergic Reynaldo, beta-Adrenergic BlockerStart: 06-26-2023 End: 58-95-6252zzhi 1 tablet by mouth twice daily at mealtimeCarvedilol 3.125 mg tablet Active 3.125 MG PO Twice daily June 25, 2024 12:00am must administer with a meal/foodStart: 08-22-2022 End: 37-31-8779dcte 1 tablet by mouth twice daily at mealtimeCarvedilol 6.25 mg Tablet Discontinued 6.25 MG PO Twice daily with meals August 22, 2022 12:00am June 25, 2024 2:02pmComment on above:Take 6.25 mg by mouth twice daily with meals.citalopram 10 mg oral tablet (10 sources)Serotonin Reuptake InhibitorStart: 91-83-9469vnck 1 tablet by mouth once dailycitalopram (CeleXA) 10 MG tablet Indications: Current mild episode of major depressive disorder without prior episode TAKE 1 TABLET (10 MG) BY MOUTH DAILY. 90 tablet 3 07/20/2024 ActiveStart: 72-80-8097Paxtzheerk 10 mg tablet Active MG PO May 05, 2024 12:00amStart: 74-19-1813uxxz 1 tablet by mouth once dailycitalopram (CeleXA) 10 MG tablet Indications: Current mild episode of major depressive disorder without prior episode (HCC) (CMS/HCC) TAKE 1 TABLET (10 MG) BY MOUTH DAILY. 90 tablet 1 01/06/2024 ActivehydroCHLOROthiazide (1 source)Thiazide DiuretichydroCHLOROthiazide Activelisinopril 5 mg oral tablet (20 sources)Angiotensin Converting Enzyme InhibitorStart: 62-50-2265qlnj 1 tablet by mouth once dailyLisinopril 5 mg tablet Active 5 MG PO Daily 90 90 June 25, 2024 12:00amStart: 08-22-2022 End: 03-76-2206dbgu 1 tablet by mouth once dailyLisinopril 2.5 mg Tablet Discontinued 2.5 MG PO Daily August 22, 2022 12:00am June 25, 2024 3:07pm End: 20-56-0275gwic 1 tablet by mouth once dailylisinopril 5 mg tablet Take 1 tablet (5 mg) by mouth once daily. 06/26/2023 Discontinued (Dose adjustment)take 0.5 tablet by mouth once dailyLisinopril 5 MG Oral Tablet TAKE 1/2 TABLET DAILY. Quantity: 45 Refills: 3 Ordered: 05-Sep-2022 Eva HAHN, Ashutosh ActiveComment on above:Take 2.5 mg by mouth once daily.nitroglycerin 0.4 mg sublingual tablet (20 sources)Nitrate VasodilatorStart: 48-12-7881vkxozfcagrgac 0.4 mg sublingual Tab Refills(s) 0 Start Date: 11/26/22 Status: OrderedStart: 08-22-2022 nitroglycerin (Nitrostat) 0.[address] 0.4 mg under the tongue. 08/22/2022 ActiveNitroglycerin 0.4 MG as directed Sublingual ActiveComment on above:Dissolve 0.4 mg under the tongue every 5 minutes as needed for chest pain. ticagrelor 90 mg oral tablet (19 sources)Start: 08-22-2022 End: 62-55-3910ybdi 1 tablet by mouth in the morningticagrelor (Brilinta) 90 MG tablet Take 90 mg by mouth in the morning and 90 mg in the evening. 08/22/2022 ActiveBrilinta 90mg Takke as directed ActiveComment on above:Take 90 mg by mouth twice daily. Completed/Discontinued Medications MedicationDrug Class(es)DatesSig (Normalized)Sig (Original)cholecalciferol 0.125 mg oral capsule (6 sources)Vitamin DVitamin D 125 MCG (5000 UT) CAPS TAKE 1 CAPSULE Daily Quantity: 0 Refills: 0 Ordered: 24-Nov-2020 DOActiveclopidogrel 75 mg oral tablet (10 sources)P2Y12 Platelet InhibitorStart: 06-26-2023 End: 01-30-6841rsaw 1 tablet by mouth once dailyClopidogrel (Plavix) 75 mg tablet Discontinued 75 MG PO Daily May 05, 2024 12:00am June 25, 2024 3:08pm diclofenac sodium 75 mg delayed release oral tablet (20 sources)Nonsteroidal Anti-inflammatory DrugStart: 09-10-2016 End: 76-61-0666mqva 1 tablet by mouth twice dailyDiclofenac Sodium 75 mg Tablet,Delayed Release (Dr/Ec) Discontinued 75 MG PO Twice daily August 20, 2022 12:00am June 25, 2024 2:02pm End: 37-97-9899zroi 2 tablets by mouth once dailydiclofenac (Voltaren) 75 mg EC tablet Take 2 tablets (150 mg) by mouth once daily. 0 01/09/2023 Discontinued (Therapy completed)take 1 tablet by mouth twice dailyDiclofenac Sodium 75MG DR TAKE ONE TABLET BY MOUTH TWICE DAILY for 30 Not-TakingComment on above:Take 75 mg by mouth twice daily.metoprolol tartrate 25 mg oral tablet (13 sources)beta-Adrenergic BlockerStart: 08-20-2022 End: 78-71-2903dvou 1 tablet by mouth once dailyMetoprolol Tartrate 25 mg Tablet Discontinued 25 MG PO Daily August 20, 2022 12:00am August 22, 2022 3:22pmStart: 01-12-6468vomi 1 tablet by mouth once dailymetoprolol 25 mg ER Tab 25 mg = 1 tab(s), Oral, Daily, Refills(s) 0 Start Date: 10/21/20 Status: OrderedMulti Vitamin Oral Tablet (6 sources)take 1 tablet by mouth once dailyMulti Vitamin Oral Tablet TAKE 1 TABLET DAILY. Quantity: 0 Refills: 0 Ordered: 24-Nov-2020 DO Activerosuvastatin calcium 20 mg oral tablet (13 sources)HMG-CoA Reductase InhibitorStart: 08-20-2022 End: 39-90-6598hffm 1 tablet by mouth once dailyRosuvastatin 20 mg Tablet Discontinued 20 MG PO Daily August 20, 2022 12:00am August 22, 2022 3:22pmStart: 86-67-8610nylj 10 mg by mouth once dailyrosuvastatin 20 mg Tab 10 mg = 0.5 tab(s), Oral, Daily Start Date: 10/24/18 Status: Orderedtake 1 tablet by mouth once dailyRosuvastatin Calcium 10 MG Oral Tablet TAKE 1 TABLET DAILY. Quantity: 90 Refills: 3 Ordered: 01-Jun-2022 Ashutosh Ling MD Activetrospium chloride 20 mg oral tablet (2 sources)Cholinergic Muscarinic AntagonistStart: 01-66-8286tlgu 1 tablet by mouth twice dailytrospium (SANCTURA) 20 mg tablet Take 1 tablet by mouth twice daily for hernandez discomfort. Stop taking 48 hours before hernandez removal. 30 tablet 1 08/30/2022 ActiveComment on above:Take 1 tablet by mouth twice daily for hernandez discomfort. Stop taking 48 hours before hernandez removal.Zinc (6 sources)Zinc 15 MG TABS Take 1 tablet daily Quantity: 0 Refills: 0 Ordered: 24-Nov-2020 DO Active Problems Active Problems Problem ClassificationProblemDateDocumented DateEpisodic/ChronicAcute myocardial infarction (15 sources)Myocardial infarction; Translations: [ST elevation (STEMI) myocardial infarction of unspecified site]Onset: 119775-30-7868Aeqfint Conditions associated with dizziness or vertigo (7 sources)Dizziness; Translations: [Dizziness and giddiness]EpisodicConduction disorders (7 sources)Heart block ; Translations: [Conduction disorder, unspecified] 80-32-1734HyquzdwDdmjystp atherosclerosis and other heart disease (20 sources)Coronary arteriosclerosis; Translations: [Atherosclerotic heart disease of [place] coronary artery without angina pectoris]Onset: 08-27-2022 51-13-5377LbyfezcXeaxpjlk mellitus without complication (12 sources)Diabetes mellitus; Translations: [Type 2 diabetes mellitus without complication]Onset: 085225-14-2706LcvqbwcRzrgorqv of white blood cells (7 sources)Leukocytosis; Translations: [Elevated white blood cell count, unspecified]Onset: 715548-00-0034EraizfyZrsijmlzk of lipid metabolism (20 sources)Hyperlipidemia; Translations: [Other and unspecified hyperlipidemia] Onset: 562791-91-2298LedpvizHkxnswfep hypertension (20 sources)Hypertensive disorder; Translations: [Unspecified essential hypertension]Onset: 08-27-2022 Resolved: 856868-00-2115TrnxtgpHkqu and other crystal arthropathies (5 sources)Gout; Translations: [Gout, unspecified]Onset: 019351-79-2930 ChronicHyperplasia of prostate (13 sources)Benign prostatic hypertrophy with outflow obstruction; Translations: [Benign prostatic hyperplasia with lower urinary tract symptoms]Onset: 06-72-1336CtjvvlcFqterseujtmli and screening for infectious disease (1 source)Patient encounter status; Translations: [Other specified vaccination] EpisodicInflammatory conditions of male genital organs (5 sources)Aqhyfjfyyux02-67-5314EfeefjqcQsuouzkwysh deficiencies (7 sources)Undernutrition; Translations: [Mild protein-calorie malnutrition] Onset: 604181-62-3606WpvbwysBcyay aftercare (2 sources)Long-term current use of anticoagulant; Translations: [intermediate accountant (current) use of anticoagulants]Onset: 73-07-6376ZnwzyuedWvngq diseases of kidney and ureters (1 source)Urinary tract obstruction; Translations: [Other obstructive and reflux uropathy]Onset: 80-45-1103DpkgpfqaBdxtc ear and sense organ disorders (3 sources)Impacted cerumen, bilateral; Translations: [Impacted cerumen]Episodic Other male genital disorders (4 sources)Male erectile dysfunction, unspecified; Translations: [Erectile dysfunction]Onset: 74-70-3451ZiwnechLqdkl nutritional; endocrine; and metabolic disorders (4 sources)Body mass index 25-29 - overweight; Translations: [Body Mass Index 28.0-28.9, adult]EpisodicPeripheral and visceral atherosclerosis (6 sources)Atherosclerosis of aorta; Translations: [Atherosclerosis of aorta] Onset: 688775-16-1865KapokseWxkjlahpu and history of mental health and substance abuse codes (11 sources)Ex-smoker; Translations: [Personal history of tobacco use]Episodic Comment on above:former cigar smoker;Syncope (5 sources)Syncope; Translations: [Syncope and collapse]83-03-5879Zfefsxgy Unclassified (5 sources)Asymptomatic microscopic hkvxuozmx19-26-2229Ljtlskdzvugg (2 sources)Drug therapy bxkriqo84-66-7429Pkuafiy tract infections (1 source)Urinary tract infectious disease; Translations: [Urinary tract infection, site not specified]Onset: 02-32-4283Ruzcmvlv Past or Other Problems Problem ClassificationProblemDateDocumented DateEpisodic/ChronicCalculus of urinary tract (17 sources)Kidney stone; Translations: [Calculus of kidney]Onset: 10-26-2021 EpisodicCoagulation and hemorrhagic disorders (10 sources)Easy bruising; Translations: [Spontaneous ecchymoses]Onset: 887933-79-3734EszdhqqxLluybtmw atherosclerosis and other heart disease (19 sources)Patient post percutaneous transluminal coronary angioplasty; Translations: [Percutaneous transluminal coronary angioplasty status]Onset: 331588-25-7160JleevahjY Codes: Adverse effects of medical drugs (7 sources)Adverse effect of anticoagulant antagonists, vitamin K and other coagulants, initial encounter; Translations: [Anticoagulants causing adverse effects in therapeutic use]Onset: 596298-41-9075YkzszvkdDwtpwshhapmou symptoms and ill-defined conditions (20 sources)Microscopic hematuria; Translations: [Asymptomatic microscopic hematuria]Onset: 00-01-6259EbvptohkBahy disorders (5 sources)Mood disordersOnset: 379115-46-0234Akbcu lower respiratory disease (5 sources)Dyspnea on exertion; Translations: [Other forms of dyspnea]Onset: 467398-77-2331YpijrytwChrpk nutritional; endocrine; and metabolic disorders (20 sources)Overweight in adulthood with body mass index of 25 or more but less than 30; Translations: [Overweight]Onset: 496940-39-4852AbtfpxitFlwgp nutritional; endocrine; and metabolic disorders (2 sources)Body mass index (BMI) 26.0-26.9, adult; Translations: [Body mass index (BMI) 26.0-26.9, adult]Onset: 66-12-9858IruiawyhFhudt screening for suspected conditions (not mental disorders or infectious disease) (20 sources)Cardiovascular stress test abnormal; Translations: [Other nonspecific abnormal results of function study of cardiovascular system]Onset: 684515-17-9957TisoakwrGxuyocxz codes; unclassified (8 sources)Never smoked tobacco; Translations: [Other specified health status] Onset: 426469-45-9236EtwwjiecItblpxzi codes; unclassified (2 sources)Other specified health status; Translations: [Other specified health status]Onset: 92-99-5419BwngzlatMmzgtcpukyv; intervertebral disc disorders; other back problems (5 sources)Sciatica; Translations: [Sciatica, unspecified side]Onset: 04-02-2024 52-80-8810OzdfsnqpHbekzppybsxe (3 sources)Onset: 01-09-2023 Resolved: Results Test NameValueInterpretationReference RangeFacilityMR LUMBAR SPINE WO CONon 49-22-3529[place] [address] Magnetic Resonance Report Signed Patient: OLAF BRIONES MR#: [id number] : 1945 Acct:[id number] Age/Sex: 79 / M ADM Date: 07/31/24 Loc: MRI Attending Dr: David Kirby NP Ordering Physician: David Kirby NP Date of Service: 07/31/24 Procedure(s): MR lumbar spine wo con Accession Number(s): [id number] cc: DAV PEGUERO ; David Kirby NP [place] [id number] Patient Name: OLAF BRIONES MRN: [id number] date: 1945 Sex: M Assigned Patient Location: MRI Current Patient Location: MRI Accession/Order Number: [id number] Exam Date: 07/31/2024 11:52 Report Date: 07/31/2024 [...] Monreal M.D. 07/31/2024 12:07 PM Dictation Location: [place] [address] Electronically authenticated by: [id number] Y Date: 07/31/2024 12:07 Dictated By: Lucinda Monreal M.D. Signed By: 07/31/24 1210 DD/ 1207 TD/TT: Distribution Engineering Technologist:DEEPALIadiolognba, Radiologist, - 07/31/[address] [address] Magnetic Resonance Report Signed Patient: OLAF BRIONES MR#: [id number] : 1945 Acct:[id number] Age/Sex: 79 / M ADM Date: 07/31/24 Loc: MRI Attending Dr: David Kirby NP Ordering Physician: David Kirby NP Date of Service: 07/31/24 Procedure(s): MR lumbar spine wo con Accession Number(s): [id number] cc: DAV PEGUERO ; David Kirby NP [place] [id number] Patient Name: OLAF BRIONES MRN: [id number] date: 1945 Sex: M Assigned Patient Location: MRI Current Patient Location: MRI Accession/Order Number: [id number] Exam Date: 07/31/2024 11:52 Report Date: 07/31/2024 [...] Monreal M.D. 07/31/2024 12:07 PM Dictation Location: [place] [address] Electronically authenticated by: [id number] Y Date: 07/31/2024 12:07 Dictated By: Lucinda Monreal M.D. Signed By: 07/31/24 1210 DD/ 1207 TD/TT: Distribution Engineering Technologist: SAÚL HealthcareRadiology Study observation (narrative)[facility] LUMBAR SPINE WO CONOrdered By: Radiologist Radiology on 22-99-2343[facility] Work Phone: fpg ECG *CARDIOLOGY ONLY*on 00-35-7333WIS ECG *CARDIOLOGY ONLY*[facility] [address] [place] [address] Electrocardiograph Report Signed Patient: Olaf Briones MR#: [id number] 2 : 1945 Acct:[id number] Age/Sex: 79 / M ADM Date: 06/25/24 Loc: EKGCARDIO Room: Type: [facility] Attending Dr: Benigno Harper MD Ordering Provider: Benigno Harper MD Date of Service: 06/25/2410/13/1351 ECG/FPG ECG *CARDIOLOGY ONLY*: I25.10 - Atherosclerotic heart disease of [place] coronary... Copies to: Test Reason : Blood [...] in Lateral leads Confirmed by Benigno Harper ([id number]) on 06/25/2024 6:07:54 PM Referred By: Electronically Signed By: Benigno Harper Transcribed By: MUS Signed By Benigno Harper MD 06/25/[address] [place] [address] Physician GroupALBUMIN, RANDOM URINE W/CREATININEon 87-75-3200QDAUBUR, URINE0.9 mg/dLNormalSee Note:[facility] Comment on above:Result Comment: Reference Range: Reference Range Not establishedPerformed By: #### 6770, 8793 #### [facility] [address], [address] [place] [address] Pump Stitcher: Brennon Zhong MD #### 6399, [address] #### [facility] [address] [place] [phone] Pump Stitcher: Agnes BlantoniALBUMIN/CREATININE RATIO, RANDOM URINE8 mg/g creatNormal<30Quest DiagnosticsComment on above:Result Comment: The ADA defines abnormalities in albumin excretion as follows: Albuminuria Category Result (mg/g creatinine) Normal to Mildly increased <30 Moderately increased 30-299 Severely increased > OR = 300 The ADA recommends that at least two of three specimens collected within a 3-6 month period be abnormal before considering a patient to be within a diagnostic category.Performed By: #### 3290, 2275 #### [facility] [address], [address] [place] [address] Pump Stitcher: Brennon Zhong MD #### 6399, [address] #### [facility] [address] [place] [phone] Pump Stitcher: Agnes R FlatiCreatinine (U) [Mass/Vol]117 mg/cRSxrgru81-616 Quest DiagnosticsComment on above:Performed By: #### 7600, 6517 #### [facility] [address], [address] [place], [place] [address] Pump Stitcher: Brennon Zhong MD #### 6399, 1959[address] #### [facility] [address] [place] [address] Pump Stitcher: Agnes BlantoniCBC (INCLUDES DIFF/PLT)on 54-23-2746Wuecyrsoo (Bld) [#/Vol]0.021 10*3/uLNormal0-200Quest DiagnosticsComment on above:Performed By: #### 7600, 6517 #### [facility] [address], [address] [place] [address] Pump Stitcher: Brennon Zhong MD #### 6399, [address] #### [facility] [address] [place] [address] Pump Stitcher: Agnes BlantoniBasophils/100 WBC (Bld)0.3 %NormalQuest DiagnosticsComment on above:Performed By: #### 7600, 6517 #### [facility] [address], [address] [place] [address] Pump Stitcher: Brennon Zhong MD #### 6399, [address] #### [facility] [address] [place] [address] Pump Stitcher: Agnes Sánchez FlatiEosinophils (Bld) [#/Vol]0.099 10*3/uLNormal 15-500Quest DiagnosticsComment on above:Performed By: #### 7600, 6517 #### [facility] [address], [address] [place] [address] Pump Stitcher: Brennon Zhong MD #### 6399, [address] #### [facility] [address] [place] [address] Pump Stitcher: Agnes BlantoniEosinophils/100 WBC (Bld)1.4 %NormalQuest DiagnosticsComment on above:Performed By: #### 7600, 6517 #### [facility] [address], [address] [place] [address] Pump Stitcher: Brennon Zhong MD #### 6399, [address] #### [facility] [address] Pump Stitcher: Agnes BlantoniErythrocyte distribution width (RBC) [Ratio] 13.6 %Nmkmqc80.0-15.0Quest DiagnosticsComment on above:Performed By: #### 7600, 6517 #### [facility] [address], [address] [place] [address] Pump Stitcher: Brennon Zhong MD #### 6399, [address] #### [facility] [address] Pump Stitcher: Agnes Sánchez FlatiHematocrit (Bld) [Volume fraction]43.9 %Normal 38.5-50.0Quest DiagnosticsComment on above:Performed By: #### 6830, 6517 #### [facility] [address], [address] [place] [address] Pump Stitcher: Brennon Zhong MD #### 6399, [address] #### [facility] [address] Pump Stitcher: Agnes Sánchez FlatiHemoglobin (Bld) [Mass/Vol]14.9 g/dLNormal 13.2-17.1Quest DiagnosticsComment on above:Performed By: #### 1660, 6517 #### [facility] [address], [address] [place] [address] Pump Stitcher: Brennon Zhong MD #### 6399, [address] #### [facility] [address] [place] [address] Pump Stitcher: Agnes Sánchez FlatiLymphocytes (Bld) [#/Vol]1.761 10*3/uLNormal 850-3900Quest DiagnosticsComment on above:Performed By: #### 7600, 6517 #### [facility] [place] [address] Pump Stitcher: Brennon Zhong MD #### 6399, [address] #### [facility] [address] Pump Stitcher: Agnes BlantoniLymphocytes/100 WBC (Bld)24.8 %NormalQuest DiagnosticsComment on above:Performed By: #### 7600, 6517 #### [facility] [address], [address] [place] [address] Pump Stitcher: Brennon Zhong MD #### 6399, 67[address] #### [facility] [address] Pump Stitcher: Agnes HandCH (RBC) [Entitic mass]31.7 fmSeqmzx75.0-33.0 Quest DiagnosticsComment on above:Performed By: #### 0830, 6517 #### [facility] [place] [address] Pump Stitcher: Brennon Zhong MD #### 6399, 89138 #### [facility] [address] Pump Stitcher: Agnes HandCHC (RBC) [Mass/Vol]33.9 g/sTZfceds37.0-36.0 Quest DiagnosticsComment on above:Result Comment: For adults, a slight decrease in the calculated MCHC value (in the range of 30 to 32 g/dL) is most likely not clinically significant; however, it should be interpreted with caution in correlation with other red cell parameters and the patient's clinical condition.Performed By: #### 7600, 6517 #### [facility] [address], [address] [place] [address] Pump Stitcher: Brennon Zhong MD #### 6399, 88093 #### [place] [address] Pump Stitcher: Agnes BlantoniMCV (RBC) [Entitic vol]93.4 kGRsoqng51.0-100.0 [facility] DiagnosticsComment on above:Performed By: #### 7600, 6517 #### [facility] [address] , [address] [place] [address] Pump Stitcher: Brennon Zhong MD #### 6399, 85182 #### [facility] [address] [place] [address] Pump Stitcher: Agnes Sánchez FlatiMonocytes (Bld) [#/Vol]0.568 10*3/uLNormal 200-950Quest DiagnosticsComment on above:Performed By: #### 7600, 6517 #### [facility] [place] [address] , [address] [place] [address] Pump Stitcher: Brennon Zhong MD #### 6399, 38013 #### [facility] [address] Pump Stitcher: Agnes BlantoniMonocytes/100 WBC (Bld)8.0 %NormalQuest DiagnosticsComment on above:Performed By: #### 7600, 6517 #### [facility] [address] , [address] [place] [address] Pump Stitcher: Brennon Zhong MD #### 6399, 82374 #### [facility] [address] [place] [address] Pump Stitcher: Agnes Sánchez FlatiNeutrophils (Bld) [#/Vol]4.651 10*3/uLNormal 1500-7800Quest DiagnosticsComment on above:Performed By: #### 7600, 6517 #### [facility] [address] , [address] [place] [address] Pump Stitcher: Brennon Zhong MD #### 6399, 97048 #### [facility] [address] [place] [address] Pump Stitcher: Agnes BlantoniNeutrophils/100 WBC (Bld)65.5 %NormalQuest DiagnosticsComment on above:Performed By: #### 7600, 6517 #### [facility] [place] [address], [address] [place], [place] [address] Pump Stitcher: Brennon Zhong MD #### 6399, 85287 #### [facility] [address] [place], [place] [address] Pump Stitcher: Agnes Sánchez FlatiPlatelet mean volume (Bld) [Entitic vol]10.9 fLNormal7.5-12.5Quest DiagnosticsComment on above:Performed By: #### 7600, 6517 #### [facility] [place] [address] , [address] [place] [address] Pump Stitcher: Brennon Zhong MD #### 6399, 02217 #### [facility] [address] [place] [address] Pump Stitcher: Agnes Sánchez FlatiPlatelets (Bld) [#/Vol]225 10*3/uLNormal 140-400Quest DiagnosticsComment on above:Performed By: #### 7600, 6517 #### [facility] [place] [address] [address] , [address] [place] [address] Pump Stitcher: Brennno Zhong MD #### 6399, 84012 #### [facility] [address] [place], [place] [address] Pump Stitcher: Agnes Sánchez FlatiRBC (Bld) [#/Vol]4.70 10*6/uLNormal4.20-5.80 [facility] DiagnosticsComment on above:Performed By: #### 7600, 6517 #### [facility] [place] [address] [address] , [address] [place] [address] Pump Stitcher: Brennon Zhong MD #### 6399, 67385 #### [facility] [address] [place] [address] Pump Stitcher: Agnes BlantoniWBC (Bld) [#/Vol]7.1 10*3/uLNormal3.8-10.8 [facility] DiagnosticsComment on above:Performed By: #### 7600, 6517 #### [facility] [address], [address] [place] [address] Pump Stitcher: Brennon Zhong MD #### 6399, 19671 #### [facility] [address] [place] [address] Pump Stitcher: Agnes BlantoniCOMPREHENSIVE METABOLIC PANELon 04-05-2024 Albumin [Mass/Vol]4.3 g/dLNormal3.6-5.1Quest DiagnosticsComment on above: Performed By: #### 7600, 6517 #### [facility] [address], [address] [place] [address] Pump Stitcher: Brennon Zhong MD #### 6399, 58030 #### [facility] [phone] Pump Stitcher: Agnes BlantoniAlbumin/Globulin [Mass ratio]1.9 {ratio}Normal 1.0-2.5Quest DiagnosticsComment on above:Performed By: #### 7600, 6517 #### [facility] [address], [address] [place] [address] Pump Stitcher: Brennon Zhong MD #### 6399, 49274 #### [facility] [address] [place], [place] [address] Pump Stitcher: Agnes Sánchez FlatiALP [Catalytic activity/Vol]141 U/LNormal 35-144Quest DiagnosticsComment on above:Performed By: #### 7600, 6517 #### [facility] [address], [address] [place] [address] Pump Stitcher: Brennon Zhong MD #### 6399, 21485 #### [facility] [address] [place], [place] [address] Pump Stitcher: Agnes Sánchez FlatiALT [Catalytic activity/Vol]29 U/LNormal9-46 [facility] DiagnosticsComment on above:Performed By: #### 7600, 6517 #### [facility] [address], [address] [place] [address] Pump Stitcher: Brennon Zhong MD #### 6399, 72216 #### [facility] [address] [place], [place] [address] Pump Stitcher: Agnes Sánchez FlatiAST [Catalytic activity/Vol]22 U/OKcripm64-55 [facility] DiagnosticsComment on above:Performed By: #### 7600, 6517 #### [facility] [address], [address] [place] [address] Pump Stitcher: Brennon Zhong MD #### 6399, 24701 #### [facility] [address] [place] [address] Pump Stitcher: Agnes BlantoniBilirubin [Mass/Vol]0.7 mg/dLNormal0.2-1.2 [facility] DiagnosticsComment on above:Performed By: #### 2580, 6517 #### [facility] [address], [address] [place] [address] Pump Stitcher: Brennon Zhong MD #### 6399, 32518 #### [facility] [address] [place] [address] Pump Stitcher: Agnes Sánchez FlatiBUN/CREATININE RATIOSEE NOTE:Normal6-22Quest DiagnosticsComment on above:Result Comment: Not Reported: BUN and Creatinine are within reference range.Performed By: #### 1540, 6517 #### [facility] [address], [address] [place] [address] Pump Stitcher: Brennon Zhong MD #### 6399, 34493 #### [facility] [address] [place] [address] Pump Stitcher: Agnes Sánchez FlatiCalcium [Mass/Vol]9.3 mg/dLNormal8.6-10.3Quest DiagnosticsComment on above:Performed By: #### 7600, 6517 #### [facility] [address], [address] [place] [address] Pump Stitcher: Brennon Zhong MD #### 6399, 18785 #### [facility] [address] [place] [address] Pump Stitcher: Agnes Sánchez FlatiChloride [Moles/Vol]105 mmol/BYsbuil40-862 [facility] DiagnosticsComment on above:Performed By: #### 1730, 6517 #### [facility] [address], [address] [place] [address] Pump Stitcher: Brennon Zhong MD #### 6399, 76331 #### [facility] [address] Pump Stitcher: Agnes BlantoniCO2 [Moles/Vol]29 mmol/HTpanqi77-79Shugt DiagnosticsComment on above:Performed By: #### 7600, 6517 #### [facility] [place] [address] Pump Stitcher: Brennon Zhong MD #### 6399, 02126 #### [facility] [address] Pump Stitcher: Agnes BlantoniCreatinine [Mass/Vol]0.76 mg/dLNormal0.70-1.28 [facility] DiagnosticsComment on above:Performed By: #### 7600, 6517 #### [facility] [address], [address] [place] [address] Pump Stitcher: Brennon Zhong MD #### 6399, 81944 #### [facility] [address] [place] [address] Pump Stitcher: Agnes BlantoniGFR/1.73 sq M.predicted among non-blacks MDRD (S/P/Bld) [Vol rate/Area]92 mL/min/{1.73_m2}Normal> OR = 60[facility] Comment on above:Performed By: #### 2140, 6517 #### [facility] [address], [address] [place] [address] Pump Stitcher: Brennon Zhong MD #### 6399, 85250 #### [facility] [address] [place] [address] Pump Stitcher: Agnes Sánchez FlatiGlobulin (S) [Mass/Vol]2.3 g/dLNormal1.9-3.7 [facility] DiagnosticsComment on above:Performed By: #### 2960, 6517 #### [facility] [address], [address] [place] [address] Pump Stitcher: Brennon Zhong MD #### 6399, 80749 #### [facility] [address] [place] [address] Pump Stitcher: Agnes Sánchez FlatiGlucose [Mass/Vol]134 mg/uSWetd12-28Sjvfm DiagnosticsComment on above:Result Comment: Fasting reference interval For someone without known diabetes, a glucose value >125 mg/dL indicates that they may have diabetes and this should be confirmed with a follow-up test.Performed By: #### 7320, 5817 #### [facility] [address], [address] [place] [address] Pump Stitcher: Brennon Zhong MD #### 6399, 52295 #### [facility] [address] [place], [place] [address] Pump Stitcher: Agnes Sánchez FlatiPotassium [Moles/Vol]4.5 mmol/LNormal3.5-5.3 [facility] DiagnosticsComment on above:Performed By: #### 2630, 6517 #### [facility] [address], [address] [place] [address] Pump Stitcher: Brennon Zhong MD #### 6399, 05399 #### [facility] [address] [place] [address] Pump Stitcher: Agnes BlantoniProtein [Mass/Vol]6.6 g/dLNormal6.1-8.1Quest DiagnosticsComment on above:Performed By: #### 7600, 6517 #### [facility] [address], [address] [place] [address] Pump Stitcher: Brennon Zhong MD #### 6399, 33537 #### [facility] [address] [place], [place] [address] Pump Stitcher: Agnes BlantoniSodium [Moles/Vol]141 mmol/HHmsifo405-172Fupsk DiagnosticsComment on above:Performed By: #### 7600, 6517 #### [facility] [address], [address] [place] [address] Pump Stitcher: Brennon Zhong MD #### 6399, 98200 #### [facility] [address] Pump Stitcher: Agnes BlantoniUrea nitrogen [Mass/Vol]16 mg/dLNormal7-25 Quest DiagnosticsComment on above:Performed By: #### 7600, 6517 #### [facility] [address], [address] [place] [address] Pump Stitcher: Brennon Zhong MD #### 6399, 37833 #### [facility] [address] [place] [address] Pump Stitcher: Agnes BlantoniLIPIEsau PANEL, STANDARD 52-79-0468Lwomfjnvsak [Mass/Vol]118 mg/dLNormal<200Quest DiagnosticsComment on above:Order Comment: FASTING:YES FASTING: YESPerformed By: #### 7600, 6517 #### [facility] [address], [address] [place] [address] Pump Stitcher: Brennon Zhong MD #### 6399, 15356 #### [facility] [address] [place] [address] Pump Stitcher: Agnes Sánchez FlatiCholesterol in HDL [Mass/Vol]45 mg/dLNormal> OR = 40Quest DiagnosticsComment on above:Order Comment: FASTING:YES FASTING: YESPerformed By: #### 7600, 6517 #### [facility] [address], [address] [place] [address] Pump Stitcher: Brennon Zhong MD #### 6399, 46794 #### [facility] [address] [place] [address] Pump Stitcher: Agnes Sánchez FlatiCholesterol in LDL [Mass/Vol]52 mg/dLNormal [facility] DiagnosticsComment on above:Order Comment: FASTING:YES FASTING: YESResult Comment: Reference range: <100 Desirable range <100 mg/dL for primary prevention; <70 mg/dL for patients with CHD or diabetic patients with > or = 2 CHD risk factors. LDL-C is now calculated using the Suresh-Odalis calculation, which is a validated novel method providing better accuracy than the Friedewald equation in the estimation of LDL-C. Suresh SS et al. MICHAEL. 2013;310(19): 9764-8472 (http://education.LiveLoop/faq/BXJ065)Performed By: #### 7600, 6517 #### [facility] [address], [address] [place] [address] Pump Stitcher: Brennon Zhong MD #### 6399, 49531 #### [facility] [address] [place] [phone] Pump Stitcher: Agnes Moralesolesterol.total/Cholesterol in HDL [Mass ratio]2.6 {ratio}Normal<5.0Quest DiagnosticsComment on above:Order Comment: FASTING:YES FASTING: YESPerformed By: #### 7600, 6517 #### [facility] [address], [address] [place] [address] Pump Stitcher: Brennon Zhong MD #### 6399, 37592 #### [facility] [address] [place] [address] Pump Stitcher: Agnes Mi HDL DBBZGDDNQYW82 mg/dL (calc)Normal<130 [facility] DiagnosticsComment on above:Order Comment: FASTING:YES FASTING: YESResult Comment: For patients with diabetes plus 1 major ASCVD risk factor, treating to a non-HDL-C goal of <100 mg/dL (LDL-C of <70 mg/dL) is considered a therapeutic option.Performed By: #### 7600, 6517 #### [facility] [address], [address] [place] [address] Pump Stitcher: Brennon Zhong MD #### 6399, 25228 #### [facility] [address] [place] [address] Pump Stitcher: Agnes BlantoniTriglyceride [Mass/Vol]125 mg/dLNormal<150 [facility] DiagnosticsComment on above:Order Comment: FASTING:YES FASTING: YESPerformed By: #### 2520, 6517 #### [facility] [address], [address] [place] [address] Pump Stitcher: Brennon Zhong MD #### 6399, 64782 #### [facility] [address] [place] [address] Pump Stitcher: Agnes Espitia, TOTALon 25-01-0219MUO, TOTAL1.60 ng/mL Normal< OR = 4.00Quest DiagnosticsComment on above:Result Comment: The total PSA value from this [...] evidence of the presence or absence of disease.Performed By: #### 6200, 6517 #### [facility] [address], [address] [place] [address] Pump Stitcher: Brennon Zhong MD #### 6399, 27275 #### [facility] [address] [place] [address] Pump Stitcher: Agnes Berg - Hematology and Cell countson 52-39-6771YiD6d (Bld) [Mass fraction]6.7 %[facility] Panel Informationon 49-82-3840Aanucaxpapdafc and review of laboratory resultsAbHenry [facility] Cott[facility] HealthcareUrology Office/Clinic Noteon 20-47-0898Fnbuxnc Office/Clinic Note Urology Office/Clinic Note Chief Complaint kidney stone HPI Staff 78yr old male pt here for 4mo f/u with metabolic workup. S/P TURP 2006, & TURP 08/28/22 at [facility]. Previous Dx: kidney stone, BPH with urinary [...] obscured. Stone Analysis 08/28/22 - 50% CaOx [place], 40% CaOx Di, and 10% minor components. KUB 11/20/22 - Bilat renal calculi, largest on R measuring up to 5 mm and largest on L measuring upto 3 mm. KUB 11/28/23 [facility] - Numerous [...] 16oz bottles a day; preferably water, clear pop,and sugar free lemonade. Decrease salt intake in diet. -Aim for 2-3 L of water per day -Decrease added salt in diet Follow up in 1 year w/ KUB. 2. BPH with urinary obstruction (N40.1: Benign prostatic hyperplasia with lower urinary tract symptoms) S/p TURP 2006. [1] S/p TURP 08/28/22 at [facility]. No urine sample provided. Not taking any [...] today. Denies gross hematuria. 5. 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 Also Aspirin qod. Follow-up With When Contact Information Shanna IVORY MD, URL [address] [place] [address]- Additional Instructions: 1 year w/ KUB Patient Education Dietary Guidelines to Help Prevent Kidney Stones I, Esperanza Gupta, personally scribed for Dr. Ivory on 03/27/2024 09:26:21. Electronically signedby sanchez Gupta on 03/27/2024 09:26:21. Documentation recorded by the scribe, Esperanza Gupta, [...] regrowth of obstructive prost (more content not included)...Corey HospitalComment on above:Result Comment: Electronically Signed By: Shanna IVORY MD\.br\Date and Time Signed: 03/27/24 09:27 EST\.br\Electronically Co- Signed By: Esperanza Gupta\.br\Date and Time Co-Signed: 03/27/2508:26 EST ALL BUNon 43-68-3292Xoku nitrogen [Mass/Vol]15 mg/dL7.0 - 18.0 mg/dLNOMS HealthcareALL CARBON DIOXIDEon 64-24-2696KZ8 [Moles/Vol]26.1 mmol/L21.0 - 32.0 mmol/LNOMS HealthcareALL CHLORIDEon 22-84-8124Amgneygn [Moles/Vol]106 mmol/L98 - 107 mmol/LNOMS HealthcareALL PHOSPHOROUSon 59-90-0120Wmgqpjyhg [Mass/Vol]3.5 mg/dL2.6 - 4.7 mg/dLNOME HealthcareALL SODIUMon 53-70-7907Qvcmtb [Moles/Vol]141 mmol/L136 - 145 mmol/LNOMS HealthcareALL URIC ACIDon 65-92-5487Chhlu [Mass/Vol] 3.6 mg/dL3.5 - 7.2 mg/dLNOME HealthcareCALCIUM 24 HOUR URINEon 89-65-5633BBYQUPH 24 HOUR EBWAI745.8NOME HealthcareCALCIUM URINE ZYEISQ22.6 mg/dL5.1 - 21.0 mg/dL NOMS HealthcareCCF CALCIUMon 62-45-8379Ugdvwkd [Mass/Vol]9.2 mg/dL8.5 - 10.1 mg/dLNOME HealthcareCREATININE 24 HOUR URINEon 58-72-3284QZPVTHLNQH 24 HOUR LNHWZ3918.22NOME HealthcareCREATININE URINE YJZPLX783.94 mg/dL20.00 - 300.00 mg/dLNOME HealthcareTOTAL VOLUME 24 HOUR VTWYS1290uC/24hrNOME HealthcareNo Panel Informationon 66-66-2771JKYUERTDXBMVS HealthcareCLINISYNCNOMS HealthcareSODIUM 24 HOUR URINEon 96-88-2566Awtsfhviglclhy and review of laboratory results AbnormalNOME HealthcareSodium (U) [Moles/Vol]113 mmol/LHigh30 - 90 mmol/LNOMS HealthcareSODIUM 24 HOUR QLFBD524JLNHWashington County Memorial HospitalTBH CREATININEon 12-13-2023 Creatinine [Mass/Vol]0.98 mg/dL0.70 - 1.30 mg/dLNOME HealthcareGFR/1.73 sq M.predicted CKD-EPI (S/P/Bld) [Vol rate/Area]>60>=60 mL/min/1.73m 2NOK[facility] HealthcareTBH EGFR-NON AF MOROCCAN>60>=60 mL/min/1.73m 2NOKLA[facility]OMA [facility] Healthcare Ambulatory Visit Summaryon 77-38-5986Yjhhnwijol Visit SummaryAmbulatory Visit Summary OLAF BRIONES :1945 Visit Date:11/29/2023 [...] Shanna IVORY MD Where: [facility] [address] [place] [address]- You Need to Schedule the Following Appointments Follow Up with Shanna IVORY MD, URL When: Where: [facility] [address], [place] [address]- Medications What How Much When Instructions Unchanged [...] Tablets By Mouth Every day Contact prescribing physicianif questions or concerns Unchanged lisinopril (lisinopril 2.5 [...] to check foror monitor the following conditions: ? High blood [...] may eat and drink normally. ? Take hrvc-vma-jmtnpdi and prescription medicines (more content not included)... Corey HospitalUrology Office/Clinic Noteon 86-28-8765Vwlsbpt Office/Clinic NoteUrology Office/Clinic Note Chief Complaint kidney stone, BPH HPI Staff 1 yr w/ KUB. Previous dx: BPH with obstruction, kidney stone, AMH. S/p TURP 08/28/22 at [facility]. *Allopurinol 300mg qd Dysuria: denies Incomplete bladder [...] obscured. Stone Analysis 08/28/22 - 50% CaOx [place], 40% CaOx Di, and 10% minor components. KUB 11/20/22 - Bilat renal calculi, largest on R measuring up to 5 mm and largest on L measuring upto 3 mm. KUB 11/28/23 [facility] - Numerous [...] TURP 2006. [1] S/p TURP 08/28/22 at [facility]. Not taking any prostate or bladder meds. Voiding well. 3. Erectile dysfunction (N52.9: Male erectile dysfunction, unspecified) Shares unable to achieve erection after second TURP, was able to achieve after first TURP. Explained potential cause of this (extensive coagulation from bleeding.). 4. Asymptomatic microscopic hematuria (R31.21: Asymptomatic microscopic hematuria) Chronic [1]. Pt unable to provide urine sample today. 5. Anticoagulated (Z79.01: nursing home (current) use of anticoagulants) No longer on Brilinta (due to SE of back pain) now on Plavix. Also Aspirin qod. Follow-up With When Contact Information CACHORRO HAHN, Shanna Sánchez, [facility], [facility] [address], [place] [address]- Additional Instructions: 4 mos with metabolic workup Patient Education 24-Hour Urine Collection Laser Therapy for Kidney Stones Cathi Proctor, personally scribed for Dr. Ivory on 11/29/2023 [...] lithotripsy for renal ca (more content not included)...Corey HospitalComment on above:Result Comment: Electronically Signed By: Shanna IVORY MD\.br\Date and Time Signed: 11/29/23 09:53 EDT\.br\Electronically Co-Signed By: Cathi Ivan\.br\Date and Time Co-Signed: 11/29/23 09:47 EDTCNPNon 12-52-2206AORBEnwcrgglb (UROLMN) OLAF BRIONES ([id number]) 1945 M Date Time Provider Department 09/06/22 JUSTINE WILSON During your visit today, we recorded the following information about you: Justine Wilson RN 09/06/2022 10:31 AM Signed ----- Message from Jocelin Gr sent at 09/06/2022 8:23 AM EDT ----- Regarding: medciation script needed Contact: Pt is calling in to see if the flomax can be called in. The pharmacy is not at [facility]. I will need to call [...] Hematuria [R31.9] 08/27/2022 Coronary artery disease involving [place]*08/27/2022 Adverse reaction to antiplatelet agent [T45.7X5*08/27/2022 Myocardial infarction (HCC) [I21.9] 08/27/2022 Essential (primary) hypertension [I10] 08/27/2022 Type 2 diabetes mellitus without complication, *08/27/2022 Leukocytosis [D72.829] 08/27/2022 Malnutrition of mild degree (HCC) [E44.1] 08/29/2022 Encounter Status:Closed by JUSTINE WILSON RN on 09/06/22No[facility] Visit ([facility]iology)on 40-98-9582Abfnlm-up visitDiagnoses/Problems Assessed History of dizziness (V13.89) (Z87.898) Hyperlipemia [...] Status: Hold For - Scheduling Requested for: [id number] Agreement : I agree to have my patient participate in the phase III outpatient cardiac rehabilitation program after completion of the phase II program. Consent : I consent to have my patient participate in the cardiac rehabilitation program. I will continue regular medical care of my patient throughout his/her participation in the program. Individualized Treatment Plan and Exercise Prescription : Request the Pump Stitcher to share responsibility for developing an ITP [...] in adult Healthy Weight Tips; Status:Complete; Done: [id number] Some eating tips that can help you lose weight.; Status:Complete; Done: [id number] SocHx: Former smoker Tobacco Use Screening; Status:Complete; Done: [id number] Patient Instructions Please bring all medicines, vitamins, [...] he developed hematuria ultimately went to the [facility] where he underwent TURP and removal [...] MG TBECTAKE 1 TABLET (more content not included)...NormalUH TouchworksTobacco Screening.on 54-77-8103Ivfwr depression screening assessmentNo [facility] Pixtronix 250 DO Work Phone: Fall risk assessmenta) No falls within the last year [facility] Blue Source-Coreen 250 DO Work Phone: Tobacco use status CPHSb) NoMSummit [facility] Pinterest 250 DO Work Phone: CNPNon 79-90-9944LHEQPijdymxpj (PODCCP) OLAF BRIONES ([id number]) 1945 M Date Time Provider Department 09/04/22 DEBORAH IBARRA During your visit today, we recorded the following information about you: Deborah Ibrara RN 09/04/2022 12:52 PM Signed PATIENT INFORMATION Record ID: [id number] Patient Name: Olaf Briones [facility]: [facility] Loop: [facility] Attending: [facility]: Urology INSTRUCTIONS SN to remind patient of appointment date, time, location All Clear All Clear SURVEY INFORMATION Medical/Nurse District Fire Chief: Deborah Ibarra 1. Your discharge instructions are [...] Reason for Visit: Follow Up Phone Call [[phone]] Cmt: All Clear Prescriptions as of 09/04/2022 [...] Hematuria [R31.9] 08/27/2022 Coronary artery disease involving [place]*08/27/2022 Adverse reaction to antiplatelet agent [T45.7X5*08/27/2022 Myocardial infarction (HCC) [I21.9] 08/27/2022 Essential (primary) hypertension [I10] 08/27/2022 Type 2 diabetes mellitus without complication, *08/27/2022 Leukocytosis [D72.829] 08/27/2022 Malnutrition of mild degree (HCC) [E44.1] 08/29/2022 Encounter Status:Closed by DEBORAH IBARRA on 09/04/22NoalCOhioHealth [facility] panel Auto (Bld)on 13-99-0189Rxhxzkncwki distribution width (RBC) [Ratio]12.8 %Ofcqst48.5-15.0[facility] on above:Order Comment: Specimen Type: BLOOD SPECIMENOrdering Facility: [facility] Address:[address] [place], [place] [address]Performed By: #### 34045-7 ####[facility] [id number] [address] OF GALION HOSPITALHematocrit (Bld) [Volume fraction]30.7 %Low39.0-51.0[facility] on above: Order Comment: Specimen Type: BLOOD SPECIMENOrdering Facility: [facility] Address:[address] [place], [place] [address]Performed By: #### 79635-3 ####[facility] [id number] [place] [address] [facility] OF AMERICAHemoglobin (Bld) [Mass/Vol]10.4 g/dLLow13.0-17.0[facility] on above:Order Comment: Specimen Type: BLOOD SPECIMENOrdering Facility: [facility] Address:[address] [place], [place] [address]Performed By: #### 65889-2 ####[facility] [id number] [place] [address] [place] AMERICAMCH (RBC) [Entitic mass]31.4 qlDbofsd56.0-34.0[facility] on above:Order Comment: Specimen Type: BLOOD SPECIMENOrdering Facility: [facility] Address:[address] [place], [place] [address]Performed By: #### 76221-6 ####[facility] [id number] [address] DAY STREETMCHC (RBC) [Mass/Vol] 33.9 g/kBQfqijg94.5-36.0[facility] on above:Order Comment: Specimen Type: BLOOD SPECIMENOrdering Facility: [facility] Address:[address] [place], [place] [address]Performed By: #### 52566-7 ####[facility] [id number] [address] STREETMCV (RBC) [Entitic vol]92.7 aSWpcovc67.0-100.0[facility] on above:Order Comment: Specimen Type: BLOOD SPECIMENOrdering Facility: [facility] Address:[address] [place], [place] [address]Performed By: #### 16674-5 ####[facility] [id number] [address]ucleated RBC (Bld) [#/Vol]10*3/uLNormal<0.01[facility] on above:Order Comment: Specimen Type: BLOOD SPECIMENOrdering Facility: [facility] Address:[address] [place] [address]Performed By: #### 13084-3 ####[facility] [id number] [address] DAY STREETPlatelet mean volume (Bld) [Entitic vol]11.5 fLNormal9.0-12.7COhioHealth Mansfield Hospital on above:Order Comment: Specimen Type: BLOOD SPECIMENOrdering Facility: [facility] Address:[address] [place] [address]Performed By: #### 88754-7 ####[facility] [id number] [place] [address] [facility]IZENS BAPTISTPlatelets (Bld) [#/Vol]194 10*3/pOVkrvxt751-181OerpanalkWilson Memorial Hospital on above:Order Comment: Specimen Type: BLOOD SPECIMENOrdering Facility: [facility] Address:[address] [place], [place] [address]Performed By: #### 36888-1 ####[facility] [id number] [address] DAY STREETRB (Bld) [#/Vol]3.31 10*6/uLLow4.20-6.00[facility] on above:Order Comment: Specimen Type: BLOOD SPECIMENOrdering Facility: [facility] Address:[address] [place], [place] [address]Performed By: #### 09001-6 ####[facility] [id number] [address] DAY STREETWBC (Bld) [#/Vol]10.56 10*3/uL Normal3.70-11.00[facility] on above:Order Comment: Specimen Type: BLOOD SPECIMENOrdering Facility: [facility] Address:[address] [place], [place] [address]Performed By: #### 05550-6 ####[facility] [id number] [address]ETCNDSon 09-38-9307XTSJTLE ID: [id number] Author: David Andrews MD Service: Urology Author [...] stable in SICU, ready to transfer to [facility]. Hernandez light pink on traction. Discontinued on Zosyn given negative blood and urine cultures. - DOA#3/POD#2: Hemoglobin continues to be stable. Urine light pink off traction. Transferred to [facility] - DOA#4/POD#3: Will discharge today with [...] Your Medications These medications were sent to [facility] [address] [place] [address] Hours: Saturday-Saturday 7am-8pm, Saturday, Saturday and Holidays [...] DATE: August 31, 2022 TIME: 8:41 AM [facility] STAFF PHYSICIAN NOTE OF PERSONAL [...] minutes including care coordinatio (more content not included)...NormalAccess Hospital DaytonComprehensive metabolic 2000 panelon 49-07-7703Ahupqty [Mass/Vol]3.8 g/dLLow3.9-4.9CBlanchard [facility] Comment on above:Order Comment: Specimen Type: BLOOD SPECIMENOrdering Facility: [facility] Address:[address] [place] [phone] Performed By: #### 16815-1, 16869-2, 2776-02 ####[facility] [id number] AVENUETRI-CITY MEDICAL CENTERK [address] [address] [place] OF AMERICAALP [Catalytic activity/Vol]116 U/LPtfj96-802MgpvqriebAccess Hospital Dayton Comment on above:Order Comment: Specimen Type: BLOOD SPECIMENOrdering Facility: [facility] Address:[address] [place], [place] [address] Performed By: #### 37658-3, , 2776-02 ####[facility] [id number] [place] [address] [place] AMERICAALT [Catalytic activity/Vol]23 U/QDwisec61-99MfuffhkfgAccess Hospital Dayton Comment on above:Order Comment: Specimen Type: BLOOD SPECIMENOrdering Facility: [facility] Address:[address] [place] [address] Performed By: #### 88698-4, , 2776-02 ####[facility] [id number] [place] [address] [place] AMERICAAnion gap [Moles/Vol]9 mmol/LNormal9-18Access Hospital DaytonComment on above:Order Comment: Specimen Type: BLOOD SPECIMENOrdering Facility: [facility] Address:[address] [place], [place] [address] Performed By: #### 99445-3, , 2776-02 ####[facility] [id number] [place] [address] [place] OF AMERICAAST [Catalytic activity/Vol]19 U/PSanoru27-18GwbiccysjAccess Hospital Dayton Comment on above:Order Comment: Specimen Type: BLOOD SPECIMENOrdering Facility: [facility] Address:[address] Performed By: #### 43113-2, 01535-2, 2776- ####[facility] [id number] [address] [place] AMERICABilirubin [Mass/Vol]0.3 mg/dLNormal0.2-1.3CBlanchard Valley Health [facility] Comment on above:Order Comment: Specimen Type: BLOOD SPECIMENOrdering Facility: [facility] Address:[address] [place] [address] Performed By: #### 42608-0, , 2776-02 ####[facility] [id number], [place] [address] [place] AMERICACalcium [Mass/Vol]9.1 mg/dLNormal8.5-10.2ClevelNovant Health Matthews Medical Center Comment on above:Order Comment: Specimen Type: BLOOD SPECIMENOrdering Facility: [facility] Address:[address] [place] [address] Performed By: #### 48392-0, , 2776-02 ####[facility] [id number][place] [address] [place] AMERICAChloride [Moles/Vol]105 mmol/GGoozfh70-147KqnnlcfesAccess Hospital Dayton Comment on above:Order Comment: Specimen Type: BLOOD SPECIMENOrdering Facility: [facility] Address:[address] [place], [place] [address] Performed By: #### 21663-6, , 2776-02 ####[facility] [id number], [place] [address] [place] AMERICACO2 [Moles/Vol]25 mmol/PCqwsbj01-46WtbslfuhyAccess Hospital DaytonComment on above:Order Comment: Specimen Type: BLOOD SPECIMENOrdering Facility: [facility] Address:[address] [place], [place] [address]Performed By: #### 39661-1, , 2776-02 ####[facility] [id number] [place] [address] [place] Creatinine [Mass/Vol]0.88 mg/dLNormal0.73-1.22[facility] on above:Order Comment: Specimen Type: BLOOD SPECIMENOrdering Facility: [facility] Address:[address] [place], [place] [phone] Performed By: #### 60287-0, 86819-4, 2776-02 ####[facility] [id number] VILLE [address] [place] OF AMERICAESTIMATED GLOMERULAR FILTRATION RATE89 mL/min/1.73m???Normal>=60[facility] on above:Order Comment: Specimen Type: BLOOD SPECIMENOrdering Facility: [facility] Address:[address] [place], [place] [phone] Comment: Estimated Glomerular Filtration Rate (eGFR) is calculated using the 2020 CKD-EPI creatinine equation. This equation utilizes serum creatinine, sex, and age as parameters. The creatinine assay has traceable calibration to isotope dilution-mass spectrometry. Refer to KDIGO guidelines for clinical interpretation. In patients with unstable renal function, e.g. those with acute kidney injury, the eGFR may not accurately reflect actual GFR.Performed By: #### 26661-3, , 2776-02 ####[facility] [id number] VILLE [address] [place] AMERICAGlucose [Mass/Vol]114 mg/tKQoeo77-02IpoxevbdrWilson Memorial Hospital on above:Order Comment: Specimen Type: BLOOD SPECIMENOrdering Facility: [facility] Address:[address] [place] [phone] Comment: The [place] Diabetes [employer] (ADA) provides guidance for cutoff [...] Standards of Medical Care in Diabetes 2016, [place] [employer]. Diabetes Care. 2016.39(Suppl 1).Performed By: #### 04312-0, - , 2776-02 ####[facility] [id number] [address] [place] AMERICAPotassium [Moles/Vol] 4.2 mmol/LNormal3.7-5.1COhioHealth Mansfield Hospital on above:Order Comment: Specimen Type: BLOOD SPECIMENOrdering Facility: [facility] Address:[address] [place] [address]Performed By: #### 24902-0, , 2776-02 ####[facility] [id number], [place] [address] [place] AMERICAProtein [Mass/Vol]6.1 g/dLLow6.3-8.0[facility] on above:Order Comment: Specimen Type: BLOOD SPECIMENOrdering Facility: [facility] Address:[address] [place] [address]Performed By: #### 43931-8, , 2776-02 ####[facility] [id number] STATES OF AMERICASodium [Moles/Vol]139 mmol/L Vndqgs084-708JkzftdmqzWilson Memorial Hospital on above:Order Comment: Specimen Type: BLOOD SPECIMENOrdering Facility: [facility] Address:[address] [place], [place] [address]Performed By: #### 41147-2, , 2776-02 ####[facility] [id number] [address] [place] AMERICAUrea nitrogen [Mass/Vol]21 mg/dL Normal9-24[facility] on above:Order Comment: Specimen Type: BLOOD SPECIMENOrdering Facility: [facility] Address:[address] [place] [address]Hxykpirvq By: #### 51863-3, 94765-5, 2777-1 ####[facility] [id number] VILLE [address] [place] AMERICAMagnesium SerPl-mCncon 08-31-2022 Magnesium [Mass/Vol]2.2 mg/dLNormal1.7-2.3COhioHealth Mansfield Hospital on above:Order Comment: Specimen Type: BLOOD SPECIMENOrdering Facility: [facility] Address:[place] [address]Orblvfpqb By: #### 91264-2, 00028-6, 2777- ####[facility] [id number] STATES OF [place] PT panel Coag (PPP)on 71-19-7346EHL Coag (PPP) [Relative time]1.0 {INR}Normal 0.9-1.3COhioHealth Mansfield Hospital on above:Order Comment: Specimen Type: BLOOD SPECIMENOrdering Facility: [facility] Address:[address] [place], [place] [address] Comment: Vitamin K Antagonist (VKA) Therapeutic Range: INR 2 to 3 (Target INR of 2.5) Note: For patients treated with VKA drugs, such as warfarin, the [place] [employer] 2012 Guideline recommends [...] Chest 2012, 141:7S-47S Daniel RA, et al. JACC 2017, 70: 252-289Performed By: #### 74053-3, 42217-5 ####[facility] [id number] [address] ST[address]PT Coag (PPP) [Time]10.4 sNormal 9.7-13.0[facility] on above:Order Comment: Specimen Type: BLOOD SPECIMENOrdering Facility: [facility] Address:[address] [place], [place] [address]Performed By: #### 68506-8, 79157-5 ####[facility] [id number] [address]ETPhosphate SerPl-mCncon 08-31-2022 Phosphate [Mass/Vol]3.6 mg/dLNormal2.7-4.8COhioHealth Mansfield Hospital on above:Order Comment: Specimen Type: BLOOD SPECIMENOrdering Facility: [facility] Address:[address] [place], [place] [address]Performed By: #### 39886-6, 27786-1, 2777-1 ####[facility] [id number] [address] THERAPY NTon 26-32-9256HZSWZCU NTHNO ID: [id number] Author: Jenna Duggan, PT Service: Physical Therapy Author Type: Physical Therapist Type: Therapy (PT/OT/Speech/Resp) Filed: 08/31/2022 10:55 AM Note Text: Physical Therapy Treatment SERVICE DATE: 08/31/2022 SERVICE TIME: 0940 to 1003 ROOM: [place] [address] Recommended Discharge Disposition: Home Anticipated Discharge Needs: [...] HLD, DM, recent STEMI (08/20/2022), transferred from [facility] for gross hematuria. Currently with 18Fr 3-way catheter on CBI. 08/28/22: s/p cystoscopy, clot evacuation, cystolitholapaxy, TURP. Admitted to SICU postoperatively due to pressor requirements and risk of hyponatremia due to length of TURP. 22Fr [address] hernandez placed introp, on traction and CBI. Reason for Hospital Admission: Pt 77y/o male transferred from [facility] for gross hematuria secondary to recent [...] Diagnosis: Reduced mobility-other Interventions Provided: Gait Training (18001) Gait Training (68863) Treatment Minutes: 23 $ Gait Training (22290) Billed Units: 2 units Training AND Education Provided in: Benefits of In-Hospital Mobility, Bed Mobility, Energy Conservation, Equipment, Exercise Program, Expected Functional Level, Gait Pattern, Reduction of Deviations, Patient Exercise/Therapy Program Support Needs, Positioning, Precautions/Restrictions, Role of Physical Therapy, Standing Balance, (more content not included)...NormalAccess Hospital DaytonaPT PPPon 35-21-1959vVQL Coag (PPP) [Time]25.2 vSgrlng62.0-32.4CBlanchard Valley Health [facility] Comment on above:Order Comment: Specimen Type: BLOOD SPECIMENOrdering Facility: [facility] Address:[address] [place], [place] [address] Performed By: #### 99015-1, 48605-4 ####[facility] [id number] [place] [address] [place] CBC panel Auto (Bld)on 43-45-1659Ttheanhussf distribution width (RBC) [Ratio] 12.7 %Iatlnu56.5-15.0[facility] on above:Order Comment: Specimen Type: BLOOD SPECIMENOrdering Facility: [facility] Address:[address] [place], [place] [address]Performed By: #### 00349-6 ####[facility] [id number] [place] [address] [facility] OF AMERICAHematocrit (Bld) [Volume fraction]30.5 %Low39.0-51.0[facility] on above:Order Comment: Specimen Type: BLOOD SPECIMENOrdering Facility: [facility] Address:[address] [place], [place] [address]Performed By: #### 53595-9 ####[facility] [id number] [address] OF AMERICAHemoglobin (Bld) [Mass/Vol]10.4 g/dLLow13.0-17.0[facility] on above:Order Comment: Specimen Type: BLOOD SPECIMENOrdering Facility: [facility] Address:[address] [place], [place] [address]Performed By: #### 74668-3 ####[facility] [id number] [address] OF GALION HOSPITALMCH (RBC) [Entitic mass]31.7 iaOjmagn15.0-34.0[facility] on above:Order Comment: Specimen Type: BLOOD SPECIMENOrdering Facility: [facility] Address:[address] [place], [place] [address]Performed By: #### 88179-9 ####[facility] [id number] [place] [address] [place] OF GALION HOSPITALMCHC (RBC) [Mass/Vol] 34.1 g/wEVctuls76.5-36.0[facility] on above:Order Comment: Specimen Type: BLOOD SPECIMENOrdering Facility: [facility] Address:[address] [place] [address] [place] [address]Udihbkadm By: #### 03156-5 ####[facility] [id number] [place] [address] [place] AMERICAMCV (RBC) [Entitic vol]93.0 dIBdycio08.0-100.0[facility] on above:Order Comment: Specimen Type: BLOOD SPECIMENOrdering Facility: [facility] Address:[address] [place] [phone] By: #### 75866-2 ####[facility] [id number] [place] [address] [place] AMERICANucleated RBC (Bld) [#/Vol]10*3/uLNormal<0.01[facility] on above:Order Comment: Specimen Type: BLOOD SPECIMENOrdering Facility: [facility] Address:[address] [place] [phone] By: #### 10973-8 ####[facility] [id number] [address] STATES OF AMERICAPlatelet mean volume (Bld) [Entitic vol]11.6 fLNormal9.0-12.7COhioHealth Mansfield Hospital on above:Order Comment: Specimen Type: BLOOD SPECIMENOrdering Facility: [facility] Address:[address] [place] [phone] By: #### 95460-9 ####[facility] [id number] [place] [address] [place] AMERICAPlatelets (Bld) [#/Vol]192 10*3/eRXglpeb667-794NpqzgpnjtWilson Memorial Hospital on above:Order Comment: Specimen Type: BLOOD SPECIMENOrdering Facility: [facility] Address:[address] [place] [phone] By: #### 56727-9 ####[facility] [id number] [address] [address] [place] OF AMERICARBC (Bld) [#/Vol]3.28 10*6/uLLow4.20-6.00[facility] on above:Order Comment: Specimen Type: BLOOD SPECIMENOrdering Facility: [facility] Address:[address] [place], [place] [address]Performed By: #### 18745-2 ####[facility] [id number] [address] STATES OF AMERICAWBC (Bld) [#/Vol]15.06 10*3/uL High3.70-11.00[facility] on above:Order Comment: Specimen Type: BLOOD SPECIMENOrdering Facility: [facility] Address:[address] [place], [place] [address]Performed By: #### 30939-7 ####[facility] [id number] [place] [address] [place] AMERICAComprehensive metabolic 2000 panelon 08-30-2022 Albumin [Mass/Vol]3.4 g/dLLow3.9-4.9COhioHealth Mansfield Hospital on above: Order Comment: Specimen Type: BLOOD SPECIMENOrdering Facility: [facility] Address:[address] [place], [place] [address]Performed By: #### 27583-8, 24512-5, 2777-1 ####[facility] [id number] [place] [address] [place] AMERICAALP [Catalytic activity/Vol]105 U/DWkghdf85-914FvgdpzreeWilson Memorial Hospital on above:Order Comment: Specimen Type: BLOOD SPECIMENOrdering Facility: [facility] Address:[address] [place], [place] [address]Performed By: #### 59748-3, 50176-5, 2777-1 ####[facility] [id number] [place] [address] [place] AMERICAALT [Catalytic activity/Vol]18 U/QHhcgix03-22FhhrgfywzWilson Memorial Hospital on above:Order Comment: Specimen Type: BLOOD SPECIMENOrdering Facility: [facility] Address:[address] [place], [place] [address]Performed By: #### 59583-5, 64516-1, 2776- ####[facility] [id number] [place] [address] [place] AMERICAAnion gap [Moles/Vol]11 mmol/LNormal9-18[facility] on above:Order Comment: Specimen Type: BLOOD SPECIMENOrdering Facility: [facility] Address:[address] [place], [place] [address]Performed By: #### 47306-0, 80720-5, 2776-02 ####[facility] [id number] [place] [address] [place] AMERICAAST [Catalytic activity/Vol]16 U/KYluyfn75-26IyudwpcmrWilson Memorial Hospital on above:Order Comment: Specimen Type: BLOOD SPECIMENOrdering Facility: [facility] Address:[address] [place], [place] [address]Performed By: #### 09512-4, 10022-9, 2776-02 ####[facility] [id number] [place] [address] [place] AMERICABilirubin [Mass/Vol]0.3 mg/dLNormal0.2-1.3COhioHealth Mansfield Hospital on above:Order Comment: Specimen Type: BLOOD SPECIMENOrdering Facility: [facility] Address:[address] [place], [place] [address]Performed By: #### 50706-2, 93026-1, 2776- ####[facility] [id number] [place] [address] [place] AMERICACalcium [Mass/Vol]8.9 mg/dLNormal8.5-10.2COhioHealth Mansfield Hospital on above: Order Comment: Specimen Type: BLOOD SPECIMENOrdering Facility: [facility] Address:[address] [place], [place] [address]Performed By: #### 47361-6, 27615-5, 2776- ####[facility] [id number] [place] [address] [place] AMERICAChloride [Moles/Vol]103 mmol/PWiakge82-128KicszboahWilson Memorial Hospital on above: Order Comment: Specimen Type: BLOOD SPECIMENOrdering Facility: [facility] Address:[address] [place], [place] [address]Performed By: #### 34450-8, 47939-9, 2776- ####[facility] [id number] [place] [address] [place] AMERICACO2 [Moles/Vol] 24 mmol/OIkuvbk29-83IrqupwvmtWilson Memorial Hospital on above:Order Comment: Specimen Type: BLOOD SPECIMENOrdering Facility: [facility] Address:[address] [place] [address]Performed By: #### 03889-3, 53426-5, 2776- ####[facility] [id number] [address] [place] AMERICACreatinine [Mass/Vol] 0.77 mg/dLNormal0.73-1.22[facility] on above:Order Comment: Specimen Type: BLOOD SPECIMENOrdering Facility: [facility] Address:[address] [place], [place] [address]Performed By: #### 85956-3, 55399-2, 2776-1 ####[facility] [id number] [place] [address] [place] AMERICAESTIMATED GLOMERULAR FILTRATION RATE92 mL/min/1.73m???Normal>=60[facility] Comment on above:Order Comment: Specimen Type: BLOOD SPECIMENOrdering Facility: [facility] Address:[address] [place], [place] [address] Result Comment: Estimated Glomerular Filtration Rate (eGFR) is calculated using the 2020 CKD-EPI creatinine equation. This equation utilizes serum creatinine, sex, and age as parameters. The creatinine assay has traceable calibration to isotope dilution-mass spectrometry. Refer to KDIGO guidelines for clinical interpretation. In patients with unstable renal function, e.g. those with acute kidney injury, the eGFR may not accurately reflect actual GFR.Performed By: #### 91702-0, 50357-6, 7- ####[facility] [id number] VIL[place] [address] [place] Glucose [Mass/Vol]124 mg/wPYgdo86-83PriqogtloWilson Memorial Hospital on above: Order Comment: Specimen Type: BLOOD SPECIMENOrdering Facility: [facility] Address:[address] [place], [place] [address]Esau SATNOS[address]0001Result Comment: The [place] Diabetes [employer] (ADA) provides guidance for cutoff values for fast ing glucose and random glucose. The ADA defines [...] Standards of Medical Care in Diabetes 2016, [place] [employer]. Diabetes Care. 2016.39(Suppl 1).Performed By: #### 47262-0, 21233- , 2776- ####[facility] [id number] VILLE [address] [place] AMERICAPotassium [Moles/Vol] 3.9 mmol/LNormal3.7-5.1COhioHealth Mansfield Hospital on above:Order Comment: Specimen Type: BLOOD SPECIMENOrdering Facility: [facility] Address:[address] [place], [place] [address]Performed By: #### 82683-3, 77325-9, 2776-02 ####[facility] [id number], [place] [address] [place] AMERICAProtein [Mass/Vol]6.2 g/dLLow6.3-8.0[facility] on above:Order Comment: Specimen Type: BLOOD SPECIMENOrdering Facility: [facility] Address:[address] [place], [place] [address]Performed By: #### 10645-0, 70884-0, 2776-02 ####[facility] [id number], [place] [address] [place] AMERICASodium [Moles/Vol]138 mmol/L Fmelag113-241EmatbtvlnWilson Memorial Hospital on above:Order Comment: Specimen Type: BLOOD SPECIMENOrdering Facility: [facility] Address:[address] [place], [place] [address]Performed By: #### 26819-5, 08712-5, 2776-02 ####[facility] LAB[facility] [id number], [place] [address] [place] AMERICAUrea nitrogen [Mass/Vol]22 mg/dL Normal9-24[facility] on above:Order Comment: Specimen Type: BLOOD SPECIMENOrdering Facility: [facility] Address:[address] [place], [place] [address]Performed By: #### 52230-1, 32976-6, 2776-02 ####[facility] [id number] VILLE [id number] [place] OF AMERICAMagnesium SerPl-mCncon 08-30-2022 Magnesium [Mass/Vol]2.2 mg/dLNormal1.7-2.3COhioHealth Mansfield Hospital on above:Order Comment: Specimen Type: BLOOD SPECIMENOrdering Facility: [facility] Address:[place] [id number] By: #### 54628-8, 62204-7, 2777-1 ####[facility] [id number] [address] [place] PT panel Coag (PPP)on 68-53-1843HOZ Coag (PPP) [Relative time]1.1 {INR}Normal 0.9-1.3COhioHealth Mansfield Hospital on above:Order Comment: Specimen Type: BLOOD SPECIMENOrdering Facility: [facility] Address:[place] [address]Result Comment: Vitamin K Antagonist (VKA) Therapeutic Range: INR 2 to 3 (Target INR of 2.5) Note: For patients treated with VKA drugs, such as warfarin, the [place] [employer] 2012 Guideline recommends [...] Chest 2012, 141:7S-47S Daniel RA, et al. [facility] 2017, 70: 252-289Performed By: #### 95952-7, 85278-4 ####[facility] [id number] [place] [address] [place] AMERICAPT Coag (PPP) [Time]10.9 sNormal 9.7-13.0[facility] on above:Order Comment: Specimen Type: BLOOD SPECIMENOrdering Facility: [facility] Address:[place] [address]Performed By: #### 09666-1, 98714-9 ####[facility] [id number] [address] STATES OF AMERICAPhosphate SerPl-mCncon 08-30-2022 Phosphate [Mass/Vol]3.2 mg/dLNormal2.7-4.8CBlanchard Valley Health System Blanchard Valley HospitalComment on above:Order Comment: Specimen Type: BLOOD SPECIMENOrdering Facility: [facility] Address:[place] [id number] By: #### 28159-6, 64315-3, 2777-1 ####[facility] [id number] [address] OF [place] THERAPY NTon 18-24-9237ZIPWDYI NTHNO ID: [id number] Author: Jenna Duggan PT Service: Physical Therapy Author Type: Physical Therapist Type: Therapy (PT/OT/Speech/Resp) Filed: 08/30/2022 3:12 PM Note Text: Physical Therapy Treatment SERVICE DATE: 08/30/2022 SERVICE TIME: 1337 to 1400 ROOM: [place] [address] Recommended Discharge Disposition: Home Anticipated Discharge Needs: [...] HLD, DM, recent STEMI (08/20/2022), transferred from [facility] for gross hematuria. Currently with 18Fr 3-way catheter on CBI. 08/28/22: s/p cystoscopy, clot evacuation, cystolitholapaxy, TURP. Admitted to SICU postoperatively due to pressor requirements and risk of hyponatremia due to length of TURP. 22Fr [address] hernandez placed introp, on traction and CBI. Reason for Hospital Admission: Pt 77y/o male transferred from [facility] for gross hematuria secondary to recent [...] Diagnosis: Reduced mobility-other Interventions Provided: Therapeutic Activity (51230), Gait Training (62237) Therapeutic Activity (13324) Treatment Minutes: 8 $ Therapeutic Activity (46449) Billed Units: 1 unit Gait Training (82933) Treatment Minutes: 15 $ Gait Training (08733) Billed Units: 1 unit Training AND Education Provided in: Benefits of In-Hospital Mobility, Bed Mobility, Energy Conservation, Equipment, Exercise Program, Expected Functional Level, Gait Pattern, Reduction of Deviations, Patient Exercise/Therapy Program Support Needs, Positioning, Precautions/Restrictions, Role of Physical Therapy, Standing Balance, Treatment Protocol, Transfers The Followin (more content not included)...NormalAccess Hospital DaytonTYPE + SCREENon 16-87-2637JAHHUlzqhsYfajfarehOhioHealth Mansfield Hospital on above:Order Comment: Specimen Type: BLOOD SPECIMENOrdering Facility: [facility] Address:[address] [place], [place] [address]Performed By: #### TSCR ####CC MAIN BLOOD BANKCLIA [id number] [address] DAY STREETHISTORICAL AB SCR STATUSNegativeNoOhioHealth Doctors Hospital on above:Order Comment: Specimen Type: BLOOD SPECIMENOrdering Facility: [facility] Address:[address] [place], [place] [address]Performed By: #### TSCR ####CC MAIN BLOOD BANKCLIA [id number] [place] [address] [place] AMERICARh Nom (Bld)PositiveNoOhioHealth Doctors Hospital on above: Order Comment: Specimen Type: BLOOD SPECIMENOrdering Facility: [facility] Address:[address] [place], [place] [address]Performed By: #### TSCR ####CC MAIN BLOOD BANKCLIA [id number] [place] [address] [place] AMERICATYPE AND SCREEN IEFPEXSPWE45/16/2023 23:59 NormalAccess Hospital DaytonComment on above:Order Comment: Specimen Type: BLOOD SPECIMENOrdering Facility: [facility] Address:[address] [place], [place] [address]Performed By: #### TSCR ####CC [facility] BLOOD BANKCLIA [id number] [address]aPTT PPPon 99-91-6372eUUO Coag (PPP) [Time]26.5 yUkhotz38.0-32.4CBlanchard Valley Health System Blanchard Valley HospitalComment on above:Order Comment: Specimen Type: BLOOD SPECIMENOrdering Facility: [facility] Address:[address] [place], [place] [address]Performed By: #### 22799-9, 58559-1 ####[facility] [id number] [address] OF GALION HOSPITALCBC panel Auto (Bld)on 71-46-2044Olpnzxuqele distribution width (RBC) [Ratio]12.5 %Vonqjw86.5-15.0[facility] Comment on above:Order Comment: Specimen Type: BLOOD SPECIMENOrdering Facility: [facility] Address:[address] [place] [address] Performed By: #### 90021-6 ####[facility] [id number] [place] [address] [place] Hematocrit (Bld) [Volume fraction]30.7 %Low39.0-51.0[facility] Comment on above:Order Comment: Specimen Type: BLOOD SPECIMENOrdering Facility: [facility] Address:[address] [place], [place] [address] Performed By: #### 32202-0 ####[facility] [id number] [place] [address] [place] Hemoglobin (Bld) [Mass/Vol]10.6 g/dLLow13.0-17.0[facility] Comment on above:Order Comment: Specimen Type: BLOOD SPECIMENOrdering Facility: [facility] Address:[address] Performed By: #### 90448-5 ####[facility] [id number] [address] [place] MCH (RBC) [Entitic mass]32.0 tfUodorg09.0-34.0[facility] on above:Order Comment: Specimen Type: BLOOD SPECIMENOrdering Facility: [facility] Address:[address] Performed By: #### 68535-8 ####[facility] [id number] [address] [place] MCHC (RBC) [Mass/Vol]34.5 g/iBKjccnq02.5-36.0[facility] Hospitalment on above:Order Comment: Specimen Type: BLOOD SPECIMENOrdering Facility: [facility] Address:[address] [place], [place] [address] Performed By: #### 24381-3 ####[facility]-FAIRHILLIA [id number] [address] [place] MCV (RBC) [Entitic vol]92.7 bCEveoht54.0-100.0[facility] on above:Order Comment: Specimen Type: BLOOD SPECIMENOrdering Facility: [facility] Address:[address] [place], [place] [address] Performed By: #### 94528-7 ####[facility] [id number] [address] [place] Nucleated RBC (Bld) [#/Vol]10*3/uLNormal<0.01[facility] on above:Order Comment: Specimen Type: BLOOD SPECIMENOrdering Facility: [facility] Address:[address] [place], [place] [address] Performed By: #### 55379-7 ####[facility] [id number] [place] [address] [place] Platelet mean volume (Bld) [Entitic vol]11.6 fLNormal9.0-12.7COhioHealth Mansfield Hospital on above:Order Comment: Specimen Type: BLOOD SPECIMENOrdering Facility: [facility] Address:[address] [place] [address]Performed By: #### 20175-8 ####[facility] [id number] [place] [address] [place] Platelets (Bld) [#/Vol]159 10*3/zKWpzihh075-366IrmnuxophWilson Memorial Hospital on above:Order Comment: Specimen Type: BLOOD SPECIMENOrdering Facility: [facility] Address:[address] [place] [address] Performed By: #### 75860-8 ####[facility] [id number] [place] [address] [place] RBC (Bld) [#/Vol]3.31 10*6/uLLow4.20-6.00[facility] on above:Order Comment: Specimen Type: BLOOD SPECIMENOrdering Facility: [facility] Address:[address] [place] [id number] By: #### 74866-2 ####[facility] [id number] [place] [address] [place] AMERICAWBC (Bld) [#/Vol]13.57 10*3/uLHigh3.70-11.00[facility] on above:Order Comment: Specimen Type: BLOOD SPECIMENOrdering Facility: [facility] Address:[address] [place] [address]Performed By: #### 11533-4 ####CORDEROST. JOSEPH[facility] [id number] [place] [address] [place] AMERICAErythrocyte distribution width (RBC) [Ratio]12.5 %Sfibfg81.5-15.0[facility] on above: Order Comment: Specimen Type: BLOOD SPECIMENOrdering Facility: [facility] Address:[address] [place], [place] [address]Performed By: #### 48684-3 ####[facility] [id number] [address] DAY STREETHematocrit (Bld) [Volume fraction]25.7 %Low39.0-51.0[facility] on above: Order Comment: Specimen Type: BLOOD SPECIMENOrdering Facility: [facility] Address:[address] [place], [place] [address]Performed By: #### 70270-3 ####[facility] [id number] [address] ST[address]ETHemoglobin (Bld) [Mass/Vol]9.1 g/dLLow13.0-17.0[facility] on above:Order Comment: Specimen Type: BLOOD SPECIMENOrdering Facility: [facility] Address:[address] [place], [place] [address]Performed By: #### 96543-1 ####[facility] [id number] [address] (RBC) [Entitic mass]32.4 tvVzrdyx47.0-34.0[facility] on above:Order Comment: Specimen Type: BLOOD SPECIMENOrdering Facility: [facility] Address:[address] [place] [address]Performed By: #### 60754-2 ####[facility] [id number] [address] (RBC) [Mass/Vol] 35.4 g/zLGewoyp74.5-36.0[facility] on above:Order Comment: Specimen Type: BLOOD SPECIMENOrdering Facility: [facility] Address:[address] [place], [place] [address]Performed By: #### 07153-2 ####[facility] [id number] [place] [address] [place] AMERICAMCV (RBC) [Entitic vol]91.5 rZNvsksb96.0-100.0[facility] on above:Order Comment: Specimen Type: BLOOD SPECIMENOrdering Facility: [facility] Address:[address] [place], [place] [address]Performed By: #### 38160-4 ####[facility] [id number] [place] [address] [place] AMERICANucleated RBC (Bld) [#/Vol]10*3/uLNormal<0.01[facility] on above:Order Comment: Specimen Type: BLOOD SPECIMENOrdering Facility: [facility] Address:[address] [place] [address]Performed By: #### 09085-2 ####[facility] [id number] [place] [address] [place] AMERICAPlatelet mean volume (Bld) [Entitic vol]11.1 fLNormal9.0-12.7COhioHealth Mansfield Hospital on above:Order Comment: Specimen Type: BLOOD SPECIMENOrdering Facility: [facility] Address:[address] [place] [address]Performed By: #### 17948-9 ####[facility] [id number] [place] [address] [place] AMERICAPlatelets (Bld) [#/Vol]138 10*3/rWEmq002-888YidwelqipWilson Memorial Hospital on above:Order Comment: Specimen Type: BLOOD SPECIMENOrdering Facility: [facility] Address:[address] [place], [place] [address]Result Comment: No clot detected.Results checked and verified.Performed By: #### 47832-7 ####[facility] [id number] [address] DAY STREETRBC (Bld) [#/Vol]2.81 10*6/uLLow 4.20-6.00[facility] on above:Order Comment: Specimen Type: BLOOD SPECIMENOrdering Facility: [facility] Address:[address] [place], [place] [address]Performed By: #### 80888-3 ####[facility] [id number] [address]W (Bld) [#/Vol]11.86 10*3/uLHigh3.70-11.00 [facility] on above:Order Comment: Specimen Type: BLOOD SPECIMENOrdering Facility: [facility] Address:[address] [place], [place] [address]Performed By: #### 58503-1 ####[facility] [id number] [address]ETCNPNon 54-59-2427TLKFHctpvollw (UROLMN) OLAF BRIONES ([id number]) 1945 M Date Time Provider Department 08/29/22 [...] lipid microspheres 1.1 mg/mL 1.3 mL injection (DEFINPronto Insurance) Problem List As Of Date 08/29/2022 Noted Resolved Hematuria [R31.9] 08/27/2022 Coronary artery disease involving [place] [place] [facility]*08/27/2022 Adverse reaction to antiplatelet agent [T45.7X5*08/27/2022 Myocardial infarction (HCC) [I21.9] 08/27/2022 Primary hypertension [I10] 08/27/2022 Type 2 diabetes mellitus without complication, *08/27/2022 Leukocytosis [D72.829] 08/27/2022 Malnutrition of mild degree (HCC) [E44.1] 08/29/2022 Encounter Status:Closed by DAVID ANDREWS on 08/29/22[facility] PROGon 31-90-2832PXXZLRA PRONO ID: [id number] Author: Rodriguez Miller APRN.[employer] Service: Cardiovascular Medicine Author Type: Nurse Practitioner Type: Consult Progress Note Filed: 08/29/2022 11:18 AM Note Text: [facility] CONSULT PROGRESS NOTE (Template ID [id number]) CONSULTING SERVICE: Cardiology: Consult Team PRIMARY SERVICE: [...] 08/29/2022 0700 Gross per 24 hour Intake 74908.5 ml Output 70711 ml Net 5853.5 ml TELEMETRY: SR IMAGING: [...] echocardiographic exam for comparison. Stent card from [employer] from 08/20/2022 DATA: Laboratory: Recent Labs 08/29/22 0323 08/29/22 0242 08/28/22 [...] (2000) and TURP (2006) who presented to [facility] (more content not included)...NormalAccess Hospital DaytonComprehensive metabolic 2000 panelon 99-01-7830Tuoeypj [Mass/Vol]4.2 g/dLNormal3.9-4.9COhioHealth Mansfield Hospital on above:Order Comment: Specimen Type: BLOOD SPECIMENOrdering Facility: [facility] Address:[address] [place], [place] [address]Performed By: #### 01048-3 ####[facility] [id number] [place] [address] [place] AMERICAALP [Catalytic activity/Vol]116 U/HUeao16-883EivkoymdsWilson Memorial Hospital on above:Order Comment: Specimen Type: BLOOD SPECIMENOrdering Facility: [facility] Address:[address] [place], [place] [address]Performed By: #### 57563-9 ####[facility] [id number] [place] [address] [place] AMERICAALT [Catalytic activity/Vol]20 U/BOhxiec41-06 [facility] on above:Order Comment: Specimen Type: BLOOD SPECIMENOrdering Facility: [facility] Address:[address] [place], [place] [address]Performed By: #### 81794-8 ####[facility] [id number] [place] [address] [place] GALION HOSPITALAnion gap [Moles/Vol]13 mmol/LNormal9-18[facility] on above:Order Comment: Specimen Type: BLOOD SPECIMENOrdering Facility: [facility] Address:[address] [place], [place] [address]Performed By: #### 36586-6 ####[facility] [id number] [place] [address] [place] AST [Catalytic activity/Vol]19 U/WTntwto06-67LlzkaglzhWilson Memorial Hospital on above:Order Comment: Specimen Type: BLOOD SPECIMENOrdering Facility: [facility] Address:[address] [place], [place] [address] Performed By: #### 03656-8 ####[facility] [id number] [place] [address] [place] Bilirubin [Mass/Vol]0.4 mg/dLNormal0.2-1.3COhioHealth Mansfield Hospital on above:Order Comment: Specimen Type: BLOOD SPECIMENOrdering Facility: [facility] Address:[address] [place], [place] [address]Performed By: #### 20533-2 ####[facility] [id number] [place] [address] [place] AMERICACalcium [Mass/Vol]9.4 mg/dLNormal8.5-10.2COhioHealth Mansfield Hospital on above:Order Comment: Specimen Type: BLOOD SPECIMENOrdering Facility: [facility] Address:[address] [place], [place] [address]Performed By: #### 66280-3 ####[facility] [id number] [place] [address] [place] AMERICAChloride [Moles/Vol]102 mmol/L Rmxqrn41-603YwvsqwgzjWilson Memorial Hospital on above:Order Comment: Specimen Type: BLOOD SPECIMENOrdering Facility: [facility] Address:[address] [place], [place] [address]Performed By: #### 67039-4 ####[facility] [id number] [place] [address] [place] AMERICACO2 [Moles/Vol]25 mmol/QZswljh70-33YnuvilkxaWilson Memorial Hospital on above:Order Comment: Specimen Type: BLOOD SPECIMENOrdering Facility: [facility] Address:[address] [place], [place] [address]Performed By: #### 49644-4 ####[facility] [id number] [place] [address] [place] AMERICACreatinine [Mass/Vol]0.86 mg/dLNormal0.73-1.22[facility] on above:Order Comment: Specimen Type: BLOOD SPECIMENOrdering Facility: [facility] Address:[address] [place], [place] [address]Performed By: #### 50208-0 ####[facility] [id number] [place] [address] [place] ESTIMATED GLOMERULAR FILTRATION RATE89 mL/min/1.73m???Normal>=60[facility] on above:Order Comment: Specimen Type: BLOOD SPECIMENOrdering Facility: [facility] Address:[address] [place], [place] [address]Result Comment: Estimated Glomerular Filtration Rate (eGFR) is calculated using the 2020 CKD-EPI creatinine equation. This equation utilizes serum creatinine, sex, and age as parameters. The creatinine assay has traceable calibration to isotope dilution-mass spectrometry. Refer to KDIGO guidelines f or clinical interpretation. In patients with unstable renal function, e.g. those with acute kidney injury, the eGFR may not accurately reflect actual GFR. Performed By: #### 50120-0 ####[facility] [id number] [place] [address] [place] Glucose [Mass/Vol]166 mg/fTNfhq41-91JudmueeqbWilson Memorial Hospital on above: Order Comment: Specimen Type: BLOOD SPECIMENOrdering Facility: [facility] Address:[address] [place], [place] [address]Result Comment: The [place] Diabetes Association (ADA) provides guidance for cutoff values for fast ing glucose and random glucose. The ADA defines [...] Standards of Medical Care in Diabetes 2016, [place] [employer] Association. Diabetes Care. 2016.39(Suppl 1).Performed By: #### 30564-0 ####[facility] [id number] [place] [address] [place] AMERICAPotassium [Moles/Vol]3.9 mmol/L Normal3.7-5.1COhioHealth Mansfield Hospital on above:Order Comment: Specimen Type: BLOOD SPECIMENOrdering Facility: [facility] Address:[address] [place], [place] [address]Performed By: #### 25277-2 ####[facility] [id number] [place] [address] [place] AMERICAProtein [Mass/Vol]6.6 g/dLNormal6.3-8.0[facility] on above:Order Comment: Specimen Type: BLOOD SPECIMENOrdering Facility: [facility] Address:[address] [place], [place] [address]Performed By: #### 75068-1 ####[facility] [id number] [place] [address] [place] AMERICASodium [Moles/Vol]140 mmol/VTcrvtu168-333TzflhubpzWilson Memorial Hospital on above:Order Comment: Specimen Type: BLOOD SPECIMENOrdering Facility: [facility] Address:[address] [place] [address]Performed By: #### 26036-0 ####[facility] [id number] [place] [address] [place] Urea nitrogen [Mass/Vol]21 mg/dLNormal9-24[facility] on above:Order Comment: Specimen Type: BLOOD SPECIMENOrdering Facility: [facility] Address:[address] [place], [place] [address]Performed By: #### 55191-8 ####[facility] [id number] [place] [address] [place] AMERICAAlbumin [Mass/Vol]3.6 g/dLLow3.9-4.9COhioHealth Mansfield Hospital on above:Order Comment: Specimen Type: BLOOD SPECIMENOrdering Facility: [facility] Address:[address] [place] [address]Performed By: #### 55035-2 ####[facility] [id number] [place] [address] [place] AMERICAALP [Catalytic activity/Vol]96 U/ZNltdfk07-789 [facility] on above:Order Comment: Specimen Type: BLOOD SPECIMENOrdering Facility: [facility] Address:[address] [place] [address]Mjwzkbuzc By: #### 97473-7 ####[facility] [id number] [place] [address] [place]ALT [Catalytic activity/Vol]18 U/DEfhpba62-62VyvhucvenWilson Memorial Hospital on above:Order Comment: Specimen Type: BLOOD SPECIMENOrdering Facility: [facility] Address:[address] [place], [place] [address]Performed By: #### 24832-6 ####[facility] [id number] [place] [address] [place] Anion gap [Moles/Vol]10 mmol/LNormal9-18[facility] on above:Order Comment: Specimen Type: BLOOD SPECIMENOrdering Facility: [facility] Address:[address] [place], [place] [address]Performed By: #### 16738-3 ####[facility] [id number] [place] [address] [place] AMERICAAST [Catalytic activity/Vol]16 U/EWgjdpp45-46CrwxluqssWilson Memorial Hospital on above:Order Comment: Specimen Type: BLOOD SPECIMENOrdering Facility: [facility] Address:[address] [place], [place] [address]Performed By: #### 46059-6 ####[facility] [id number] [place] [address] [place] AMERICABilirubin [Mass/Vol] 0.5 mg/dLNormal0.2-1.3COhioHealth Mansfield Hospital on above:Order Comment: Specimen Type: BLOOD SPECIMENOrdering Facility: [facility] Address:[address] [place], [place] [address]Performed By: #### 33832-6 ####[facility] [id number] [place] [address] [place] AMERICACalcium [Mass/Vol]8.7 mg/dLNormal 8.5-10.2COhioHealth Mansfield Hospital on above:Order Comment: Specimen Type: BLOOD SPECIMENOrdering Facility: [facility] Address:[address] [place], [place] [address]Performed By: #### 81398-5 ####[facility] [id number] [place] [address] [place] AMERICAChloride [Moles/Vol]105 mmol/WWzvnsy38-446 [facility] on above:Order Comment: Specimen Type: BLOOD SPECIMENOrdering Facility: [facility] Address:[address] [place], [place] [address]Performed By: #### 30293-8 ####[facility] [id number] [place] [address] [place] AMERICACO2 [Moles/Vol]24 mmol/JCsfxxr60-32HbwmiizzfAccess Hospital [facility] Comment on above:Order Comment: Specimen Type: BLOOD SPECIMENOrdering Facility: [facility] Address:[address] [place] [address] Performed By: #### 61342-0 ####[facility] [id number] [place] [address] [place] Creatinine [Mass/Vol]0.78 mg/dLNormal0.73-1.22[facility] DaytonComtr[facility] on above:Order Comment: Specimen Type: BLOOD SPECIMENOrdering Facility: [facility] Address:[address] [place] [address] Performed By: #### 58913-1 ####[facility] [id number] [place] [address] [facility] ESTIMATED GLOMERULAR FILTRATION RATE92 mL/min/1.73m???Normal>=60[facility] Hospital DaytonComtrinity health [facility] on above:Order Comment: Specimen Type: BLOOD SPECIMENOrdering Facility: [facility] Address:[address] [place], [place] [address]Result Comment: Estimated Glomerular Filtration Rate (eGFR) is calculated using the 2020 CKD-EPI creatinine equation. This equation utilizes serum creatinine, sex, and age as parameters. The creatinine assay has traceable calibration to isotope dilution-mass spectrometry. Refer to KDIGO guidelines f or clinical interpretation. In patients with unstable renal function, e.g. those with acute kidney injury, the eGFR may not accurately reflect actual GFR. Performed By: #### 93486-1 ####[facility] [id number] [place] [address] [place] Glucose [Mass/Vol]217 mg/sEYrig78-49GvqauqmjgWilson Memorial Hospital on above: Order Comment: Specimen Type: BLOOD SPECIMENOrdering Facility: [facility] Address:[address] [place], [place] [address]Result Comment: The [place] Diabetes Association (ADA) provides guidance for cutoff values for fast ing glucose and random glucose. The ADA defines [...] Standards of Medical Care in Diabetes 2016, [place] [employer]. Diabetes Care. 2016.39(Suppl 1).Performed By: #### 29733-1 ####[facility] [id number] [place] [address] [place] AMERICAPotassium [Moles/Vol]3.9 mmol/L Normal3.7-5.1COhioHealth Mansfield Hospital on above:Order Comment: Specimen Type: BLOOD SPECIMENOrdering Facility: [facility] Address:[address] [place], [place] [address]Performed By: #### 00026-8 ####[facility] [id number] [place] [address] [place] AMERICAProtein [Mass/Vol]5.6 g/dLLow6.3-8.0[facility] on above:Order Comment: Specimen Type: BLOOD SPECIMENOrdering Facility: [facility] Address:[address] [place], [place] [address]Performed By: #### 89092-6 ####[facility] [id number] [place] [address] [place] AMERICASodium [Moles/Vol]139 mmol/QTslxxc517-477YhednnwxlWilson Memorial Hospital on above:Order Comment: Specimen Type: BLOOD SPECIMENOrdering Facility: [facility] Address:[address] [place] [address]Performed By: #### 13855-1 ####[facility] [id number] [place] [address] [place] Urea nitrogen [Mass/Vol]14 mg/dLNormal9-24[facility] on above:Order Comment: Specimen Type: BLOOD SPECIMENOrdering Facility: [facility] Address:[address] [place], [place] [address]Performed By: #### 57527-0 ####[facility] [id number] [place] [address] [place] AMERICAAlbumin [Mass/Vol]3.6 g/dLLow3.9-4.9COhioHealth Mansfield Hospital on above:Order Comment: Specimen Type: BLOOD SPECIMENOrdering Facility: [facility] Address:[address] [place] [address]Performed By: #### 2777-1, 12492-9, 53562-1 ####[facility] [id number], [place] [address] [place] AMERICAALP [Catalytic activity/Vol]98 U/MWovjxk82-177EtotzsjhiWilson Memorial Hospital on above:Order Comment: Specimen Type: BLOOD SPECIMENOrdering Facility: [facility] Address:[address] [place] [address]Performed By: #### 2777-1, 04091-6, 97758-9 ####[facility] [id number], [place] [address] [place] AMERICAALT [Catalytic activity/Vol]19 U/PTsusvx09-54YmrsxbnhnWilson Memorial Hospital on above:Order Comment: Specimen Type: BLOOD SPECIMENOrdering Facility: [facility] Address:[address] [place] [address]Performed By: #### 2777-1, 27728-5, ####[facility] [id number] [place] [address] [place] AMERICAAnion gap [Moles/Vol]12 mmol/LNormal9-18[facility] on above:Order Comment: Specimen Type: BLOOD SPECIMENOrdering Facility: [facility] Address:[address] [place], [place] [address]Performed By: #### 2777-1, 01397-1, ####[facility] [id number] [place] [address] [place] AMERICAAST [Catalytic activity/Vol]18 U/LCcagkq31-33KqlpxubwsWilson Memorial Hospital on above:Order Comment: Specimen Type: BLOOD SPECIMENOrdering Facility: [facility] Address:[address] [place] [address]Performed By: #### 2777-1, 85657-4, ####[facility] [id number] [place] [address] [place] AMERICABilirubin [Mass/Vol]0.7 mg/dLNormal0.2-1.3COhioHealth Mansfield Hospital on above:Order Comment: Specimen Type: BLOOD SPECIMENOrdering Facility: [facility] Address:[address] [place], [place] [address]Performed By: #### 2777-1, 15738-1, ####[facility] [id number] [place] [address] [place] AMERICACalcium [Mass/Vol]8.3 mg/dLLow8.5-10.2[facility] ClevelandComment on above:Order Comment: Specimen Type: BLOOD SPECIMENOrdering Facility: [facility] Address:[address] [place], [place] [address]Performed By: #### 2777-1, 33145-6, ####[facility] [id number] [place] [address] [place] AMERICAChloride [Moles/Vol]102 mmol/PVfawvm23-517GdynijgslWilson Memorial Hospital on above: Order Comment: Specimen Type: BLOOD SPECIMENOrdering Facility: [facility] Address:[address] [place], [place] [address]Performed By: #### 2777-1, 68066-7, ####[facility] [id number] [place] [address] [place] AMERICACO2 [Moles/Vol] 22 mmol/QBxygqg88-01EziyrijdiWilson Memorial Hospital on above:Order Comment: Specimen Type: BLOOD SPECIMENOrdering Facility: [facility] Address:[address] [place], [place] [address]Performed By: #### 2777-1, 65588-8, ####[facility] [id number], [place] [address] [place] AMERICACreatinine [Mass/Vol] 0.69 mg/dLLow0.73-1.22[facility] on above:Order Comment: Specimen Type: BLOOD SPECIMENOrdering Facility: [facility] Address:[address] [place] [phone] By: #### 2777-1, 87441-7, ####[facility] [id number] VILLE [address] [place] OF AMERICAESTIMATED GLOMERULAR FILTRATION RATE95 mL/min/1.73m???Normal>=60[facility] on above:Order Comment: Specimen Type: BLOOD SPECIMENOrdering Facility: [facility] Address:[address] [place] [address]Pnapqi Comment: Estimated Glomerular Filtration Rate (eGFR) is calculated using the 2020 CKD-EPI creatinine equation. This equation utilizes serum creatinine, sex, and age as parameters. The creatinine assay has traceable calibration to isotope dilution-mass spectrometry. Refer to KDIGO guidelines for clinical interpretation. In patients with unstable renal function, e.g. those with acute kidney injury, the eGFR may not accurately reflect actual GFR.Performed By: #### 2777-1, 03712-5, ####[facility] [id number] [address] [place] Glucose [Mass/Vol]202 mg/mIVzgu12-23HzzwyrdodWilson Memorial Hospital on above: Order Comment: Specimen Type: BLOOD SPECIMENOrdering Facility: [facility] Address:[address] [place], [place] [phone] Comment: The [place] Diabetes Association (ADA) provides guidance for cutoff values for fast ing glucose and random glucose. The ADA defines [...] Standards of Medical Care in Diabetes 2016, [place] [employer]. Diabetes Care. 2016.39(Suppl 1).Performed By: #### 2777-1, 21578-7, ####[facility] [id number] [address] [place] AMERICAPotassium [Moles/Vol] 4.1 mmol/LNormal3.7-5.1COhioHealth Mansfield Hospital on above:Order Comment: Specimen Type: BLOOD SPECIMENOrdering Facility: [facility] Address:[address] [place] [phone] By: #### 2777-1, 45381-7, 52758-3 ####[facility] [id number] VILLE [address] [place] AMERICAProtein [Mass/Vol]5.5 g/dLLow6.3-8.0[facility] on above:Order Comment: Specimen Type: BLOOD SPECIMENOrdering Facility: [facility] Address:[address] [place], [place] [address]Performed By: #### 2777-1, 75422-1, ####[facility] [id number], [place] [address] [place] AMERICASodium [Moles/Vol]136 mmol/L Eurpzv132-520FpyopjxhtWilson Memorial Hospital on above:Order Comment: Specimen Type: BLOOD SPECIMENOrdering Facility: [facility] Address:[address] [place], [place] [address]Performed By: #### 2777-1, 64150-5, ####[facility] [id number], [place] [address] [place] AMERICAUrea nitrogen [Mass/Vol]14 mg/dL Normal9-24[facility] on above:Order Comment: Specimen Type: BLOOD SPECIMENOrdering Facility: [facility] Address:[address] [place], [place] [address]Performed By: #### 2777-1, 74060-3, ####[facility] [id number] VILLE [address] [place] AMERICAAlbumin [Mass/Vol]3.0 g/dLLow 3.9-4.9COhioHealth Mansfield Hospital on above:Order Comment: Specimen Type: BLOOD SPECIMENOrdering Facility: [facility] Address:[address] [place], [place] [address]Result Comment: Result rechecked.Performed By: #### 73567-2, 2776-02, 23853-9 ####[facility] [id number] [address] [address] [place] ALP [Catalytic activity/Vol]88 U/MGmddsu07-485TdwttpxmbWilson Memorial Hospital on above:Order Comment: Specimen Type: BLOOD SPECIMENOrdering Facility: [facility] Address:[address] [place], [place] [address] Performed By: #### 79021-5, 2776-02, 29066-8 ####[facility] [id number], [place] [address] [place] AMERICAALT [Catalytic activity/Vol]15 U/SRhdudc45-74WbgohljglAccess Hospital [facility] Comment on above:Order Comment: Specimen Type: BLOOD SPECIMENOrdering Facility: [facility] Address:[address] [place], [place] [address] Performed By: #### 25074-6, 2776-02, 63237-3 ####[facility] [id number], [place] [address] [place] AMERICAAnion gap [Moles/Vol]14 mmol/LNormal9-18[facility] on above:Order Comment: Specimen Type: BLOOD SPECIMENOrdering Facility: [facility] Address:[address] [place], [place] [address] Performed By: #### 61679-0, 2776-02, 06509-0 ####[facility] [id number] [address] [place] AMERICAAST [Catalytic activity/Vol]16 U/OAurdrh29-63KbtvmxlqcAccess Hospital [facility] Comment on above:Order Comment: Specimen Type: BLOOD SPECIMENOrdering Facility: [facility] Address:[address] Performed By: #### 51421-3, 27708-18, 35125-1 ####[facility] [id number] [address] [place] AMERICABilirubin [Mass/Vol]0.6 mg/dLNormal0.2-1.3CBlanchard Valley [facility] Comment on above:Order Comment: Specimen Type: BLOOD SPECIMENOrdering Facility: [facility] Address:[address] [place] [address] Performed By: #### 52278-6, 277-, 93783-5 ####[facility] [id number], [place] [address] [place] AMERICACalcium [Mass/Vol]8.4 mg/dLLow8.5-10.2CBlanchard Valley Health System [facility] Valley HospitalComment on above:Order Comment: Specimen Type: BLOOD SPECIMENOrdering Facility: [facility] Address:[address] [place] [address] Performed By: #### 42816-5, 2776-02, ####[facility] [id number], [place] [address] [place] AMERICAChloride [Moles/Vol]103 mmol/ZMffglt51-455EmpcesocqAccess Hospital [facility] Comment on above:Order Comment: Specimen Type: BLOOD SPECIMENOrdering Facility: [facility] Address:[address] [place] [address] Performed By: #### 89867-8, 2776-02, 12273-6 ####[facility] [id number], [place] [address] [place] AMERICACO2 [Moles/Vol]20 mmol/NJdd38-63YrfytydpaWilson Memorial Hospital on above:Order Comment: Specimen Type: BLOOD SPECIMENOrdering Facility: [facility] Address:[address] [place], [place] [address]Performed By: #### 81095-3, 277-, 53551-3 ####[facility] [id number], [place] [address] [place] Creatinine [Mass/Vol]0.64 mg/dLLow0.73-1.22[facility] on above:Order Comment: Specimen Type: BLOOD SPECIMENOrdering Facility: [facility] Address:[address] [place] [phone] By: #### 44491-8, 2777-1, 67956-6 ####[facility] [id number] VILLE [address] [place] ESTIMATED GLOMERULAR FILTRATION RATE98 mL/min/1.73m???Normal>=60[facility] on above:Order Comment: Specimen Type: BLOOD SPECIMENOrdering Facility: [facility] Address:[address] [place], [place] [phone] Comment: Estimated Glomerular Filtration Rate (eGFR) is calculated using the 2020 CKD-EPI creatinine equation. This equation utilizes serum creatinine, sex, and age as parameters. The creatinine assay has traceable calibration to isotope dilution-mass spectrometry. Refer to KDIGO guidelines f or clinical interpretation. In patients with unstable renal function, e.g. those with acute kidney injury, the eGFR may not accurately reflect actual GFR. Performed By: #### 66892-1, 2776-02, ####[facility] [id number] VILLE [address] [place] OF AMERICAGlucose [Mass/Vol]186 mg/oWFffo71-25AglqcsmnlWilson Memorial Hospital on above:Order Comment: Specimen Type: BLOOD SPECIMENOrdering Facility: [facility] Address:[address] [place] [phone] Comment: The [place] Diabetes Association (ADA) provides guidance for cutoff [...] Standards of Medical Care in Diabetes 2016, [place] [employer]. Diabetes Care. 2016.39(Suppl 1).Performed By: #### 38530-0, 2776-02, ####[facility] [id number] [address] [place] AMERICAPotassium [Moles/Vol] 4.0 mmol/LNormal3.7-5.1COhioHealth Mansfield Hospital on above:Order Comment: Specimen Type: BLOOD SPECIMENOrdering Facility: [facility] Address:[address] [place] [address]Performed By: #### 99991-0, 2776-02, ####[facility] [id number], [place] [address] [place] AMERICAProtein [Mass/Vol]5.1 g/dLLow6.3-8.0[facility] on above:Order Comment: Specimen Type: BLOOD SPECIMENOrdering Facility: [facility] Address:[address] [place], [place] [phone] By: #### 04575-1, 2776-02, ####[facility] [id number] [place] [address] STATES OF AMERICASodium [Moles/Vol]137 mmol/L Krgslc037-821ClnxpmwzjWilson Memorial Hospital on above:Order Comment: Specimen Type: BLOOD SPECIMENOrdering Facility: [facility] Address:[address] [place] [phone] By: #### 80706-7, 2776-02, ####[facility] [id number] [address] [place] AMERICAUrea nitrogen [Mass/Vol]12 mg/dL Normal9-24[facility] on above:Order Comment: Specimen Type: BLOOD SPECIMENOrdering Facility: [facility] Address:[address] [phone] By: #### 41050-7, 2777-1, 77960-5 ####[facility] [id number], [place] [address] [place] AMERICAECG COMPLETEon 49-77-9797HLZ COMPLETEVentricular Rate : 70 BPM Atrial Rate : 70 BPM P-R Interval : 186 ms QRS Duration : 102 ms Q-T Interval : 454 ms QTC Calculation(Bazett) : 490 ms Calculated P Center [place] : 44 degrees Calculated R [place] : -26 degrees Calculated T [place] : -27 degrees SINUS RHYTHM WITH PREMATURE ATRIAL COMPLEXES NONSPECIFIC ST ABNORMALITY ABNORMAL ECG Confirmed by ERICK STEWARD MD (65) on 08/31/2022 7:45:00 AM NAME : OLAF BRIONES PID : [id number] : 1945 Gender : Male Race : Unknown ORD : [id number] Procedure Date : Aug 29 2022 00:07:53 Edit Date : Aug 31 2022 07:45:03 Diagnosis: SINUS RHYTHM WITH PREMATURE ATRIAL COMPLEXES NONSPECIFIC ST ABNORMALITY ABNORMAL ECG Confirmed by ERICK STEWARD MD (65) on 08/31/2022 7:45:00 AM Test Reason : Post-OP Location : 154 : [facility] [place] [id number] Overread By : ERICK STEWARD MD Edited By : ERICK STEWARD MD Referred By : , Acquired by : Gerald RINALDIMarietta Osteopathic ClinicMagnesium SerPl-[facility] 62-78-1560Ypsfksnil [Mass/Vol]2.1 mg/dLNormal1.7-2.3CBlanchard Valley [facility] Comment on above:Order Comment: Specimen Type: BLOOD SPECIMENOrdering Facility: [facility] Address:[address] [place] [phone] Performed By: #### 2777-1, 89756-1, 77304-1 ####[facility] [id number] [address] [place] AMERICAMagnesium [Mass/Vol]1.8 mg/dLNormal1.7-2.3CBlanchard Valley Health [facility] Comment on above:Order Comment: Specimen Type: BLOOD SPECIMENOrdering Facility: [facility] Address:[address] [place] [phone] Performed By: #### 30119-1, 2777-1, 04684-9 ####[facility] [id number] STATES OF AMERICAPT panel Coag (PPP)on 01-58-7869PNN Coag (PPP) [Relative time]1.0 {INR} Normal0.9-1.3CBlanchard Valley Health System Blanchard Valley HospitalComment on above:Order Comment: Specimen Type: BLOOD SPECIMENOrdering Facility: [facility] Address:[place] [address]Result Comment: Vitamin K Antagonist (VKA) Therapeutic Range: INR 2 to 3 (Target INR of 2.5) Note: For patients treated with VKA drugs, such as warfarin, the [place] [employer] 2012 Guideline recommends [...] Chest 2012, 141:7S-47S Daniel RA, et al. [facility] 2017, 70: 252-289Performed By: #### 78322-0, 76364-6 ####[facility] [id number] [place] [address] [place] AMERICAPT Coag (PPP) [Time]10.7 sNormal 9.7-13.0[facility] on above:Order Comment: Specimen Type: BLOOD SPECIMENOrdering Facility: [facility] Address:[address] [place] [phone] By: #### 39078-3, 64112-0 ####[facility] [id number] [address] OF GALION HOSPITALINR Coag (PPP) [Relative time]1.1 {INR}Normal0.9-1.3COhioHealth Mansfield Hospital on above:Order Comment: Specimen Type: BLOOD SPECIMENOrdering Facility: [facility] Address:[address] [place], [place] [address]Result Comment: Vitamin K Antagonist (VKA) Therapeutic Range: INR 2 to 3 (Target INR of 2.5) Note: For patients treated with VKA drugs, such as warfarin, the [place] [employer] 2012 Guideline recommends [...] Chest 2012, 141:7S-47S Daniel RA, et al. [facility] 2017, 70: 252-289Performed By: #### 23726-6, 12030-1 ####[facility] [id number] [place] [address] [place] STATES OF AMERICAPT Coag (PPP) [Time]11.2 sNormal 9.7-13.0[facility] on above:Order Comment: Specimen Type: BLOOD SPECIMENOrdering Facility: [facility] Address:[place] [address]Performed By: #### 13975-6, 04629-6 ####[facility] [id number] [place] [address] [place] AMERICAPhosphate SerPl-mCncon 08-29-2022 Phosphate [Mass/Vol]4.9 mg/dLHigh2.7-4.8COhioHealth Mansfield Hospital on above:Order Comment: Specimen Type: BLOOD SPECIMENOrdering Facility: [facility] Address:[address] [place], [place] [phone] By: #### 2777-1, 39713-4, 49358-3 ####[facility] [id number] VILLE [address] [place] Phosphate [Mass/Vol]4.2 mg/dLNormal2.7-4.8COhioHealth Mansfield Hospital on above:Order Comment: Specimen Type: BLOOD SPECIMENOrdering Facility: [facility] Address:[address] [place], [place] [phone] By: #### 71755-2, 2777-1, 02329-6 ####[facility] [id number] VILLE [address] [place] THERAPY NTon 80-83-8573FRMMHJN NTHNO ID: [id number] Author: Jenna Duggan PT Service: Physical Therapy Author Type: Physical Therapist Type: Therapy (PT/OT/Speech/Resp) Filed: 08/29/2022 2:51 PM Note Text: Physical Therapy Evaluation SERVICE DATE: 08/29/2022 SERVICE TIME: 1403 to 1438 ROOM: [place] [address] Recommended Discharge Disposition: Home Anticipated Discharge Needs: [...] HLD, DM, recent STEMI (08/20/2022), transferred from [facility] for gross hematuria. Currently with 18Fr 3-way catheter on CBI. 08/28/22: s/p cystoscopy, clot evacuation, cystolitholapaxy, TURP. Admitted to SICU postoperatively due to pressor requirements and risk of hyponatremia due to length of TURP. 22Fr [address] hernandez placed introp, on traction and CBI. Reason for Hospital Admission: Pt 77y/o male transferred from [facility] for gross hematuria secondary to recent [...] Deviations/Observations: Diana decreased, Flexed trunk posture -HLM: 7: Walk 25 feet or more Learning/Educational [...] Reduced mobility-other Interventions Provided: Evaluation, Therapeutic Activity (04092), Gait Training (77783) $ Evaluation-Moderate (31777) Billed Units: 1 unit Therapeutic Activity (15988) Treatment Minutes: 7 $ Therapeutic Activity (82892) Billed Units: 0 units Gait Training (92682) Treatment Minutes: 13 $ Gait Training (12153) Billed Units: 1 unit Training AND Education Provided in: Benefits of In-Hospital Mobility, Bed Mobility, Energy Conservation, Equipment, Exer (more content not included)... [facility] CenterO ID: [id number] Author: BLAYNE Miles/Cherry Service: Occupational Therapy Author Type: Occupational Therapist Type: Therapy (PT/OT/Speech/Resp) Filed: 08/29/2022 11:06 AM Note Text: Occupational Therapy Evaluation SERVICE DATE: 08/29/2022 SERVICE TIME: 849 to 920 ROOM: [place] [address] Recommended Discharge Disposition: Home Anticipated Discharge Needs: [...] HLD, DM, recent STEMI (08/20/2022), transferred from [facility] for gross hematuria. Currently with 18Fr 3-way catheter on CBI. 08/28/22: s/p cystoscopy, clot evacuation, cystolitholapaxy, TURP. Admitted to SICU postoperatively due to pressor requirements and risk of hyponatremia due to length of TURP. 22Fr [address] hernandez placed introp, on traction and CBI. 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 [...] mobility-other Interventions Provided: Evaluation, Self Fpc Management (54172) $ Evaluat (more content not included)...NormalAccess Hospital DaytonaPTT PPP on 20-85-3385bWIO Coag (PPP) [Time]21.0 sLow23.0-32.4CBlanchard Valley Health [facility] Comment on above:Order Comment: Specimen Type: BLOOD SPECIMENOrdering Facility: [facility] Address:[address] [place] [address] Performed By: #### 95247-5, 12921-7 ####[facility] [id number] [facility] [id number] [place] [address] [place] aPTT Coag (PPP) [Time]26.1 jRdytny40.0-32.4CBlanchard Valley Health System [facility] Valley HospitalComment on above:Order Comment: Specimen Type: BLOOD SPECIMENOrdering Facility: [facility] Address:[address] [place], [place] [address]Performed By: #### 86802-9, 00379-9 ####[facility] [id number] [address] [address] [place] OF AMERICAANES POSTPROC EVALon 23-76-6822PPMG POSTPROC EVALHNO ID: [id number] Author: Kumar Day MD Service: ? Author Type: Anesthesiologist Type: Anesthesia Postprocedure Evaluation Filed: 08/28/2022 8:38 PM Note Text: POST ANESTHESIA EVALUATION NOTE : 1945 Procedure Summary Date: 08/28/22 Room / Location: [address] Anesthesia Start: 1752 Anesthesia Stop: 2030 [...] PACU/ICU/floor team. Anesthesia Observations No Documentation SIGNATURE: Kumar Day MD PATIENT NAME: Olaf Briones DATE: August 28, 2022 TIME: 8:37 PM CSN: [id number] Valley Health System Blanchard Valley HospitalANES PRE-OPon 83-32-3356KGJP PRE-OPHNO ID: [id number] Author: Weston Avila MD Service: ? Author Type: Anesthesiologist Type: Anesthesia Preprocedure Evaluation Filed: 08/28/2022 6:10 PM Note Text: ANESTHESIOLOGY DAY OF SURGERY NOTE : 1945 Procedure Information Anesthesia Start Date/Time: 08/28/221752 Procedure: CYSTOURETHROSCOPY FULGURATION BLADDER (Bladder) Location: MAIN [facility] / [facility] Surgeons: David Andrews MD Estimated body mass index is 25.23 kg/m? as calculated from the following: Height as of this encounter: 173 cm (5' 8.11 ). Weight as of this encounter: 75.5 kg (166 lb 7.2 oz). Most recent hematocrit and potassium results: Hematocrit 32.6 08/28/2022 Potassium 4.0 08/28/2022 Relevant Problems CARDIO (+) Coronary artery disease involving [place] coronary artery of [place] heart without angina pectoris (+) Myocardial infarction [...] 5 minutes as nee (more content not included)...Normal [facility] PREOPon [id number] PREOPHNO ID: [id number] Author: Jaycee Bernard MD Service: Anesthesiology Author Type: Resident Type: Anesthesia PreOp Filed: 08/28/2022 1:13 PM Note Text: Attestation signed by Grady Church MD at 08/28/2022 3:47 PM I reviewed the pertinent patient history and agree with the resident's recommended plan for care. 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 L (more content not included)...[facility] NOTon [id number] OP NOTHNO ID: [id number] Author: Gt Mcgowan MD Service: Urology Author Type: Resident Type: Brief Op Note Filed: 08/28/2022 7:50 PM Note Text: BRIEF OP NOTE LOG ID: [id number] Surgery/Procedure Date: 08/28/2022 Incision/Procedure Start Time: 6:17 PM Incision Close/Procedure End Time: Surgeon(s)/Proceduralist(s) and District Fire Chief(s): Surgeon(s) and Role: * David Andrews MD [...] 2022 TIME: 7:48 PM PAGER/CONTACT #: p [phone] Post-op Plan: To [facility] metabolic 2000 panelon 08-28-2022 Anion gap [Moles/Vol]9 mmol/LNormal9-18[facility] on above:Order Comment: Specimen Type: BLOOD SPECIMENOrdering Facility: [facility] Address:[address] [place], [place] [address]Performed By: #### 16258-2 ####[facility] [id number] [place] [address] [place] AMERICACalcium [Mass/Vol]8.8 mg/dLNormal8.5-10.2COhioHealth Mansfield Hospital on above:Order Comment: Specimen Type: BLOOD SPECIMENOrdering Facility: [facility] Address:[address] [place], [place] [address]Performed By: #### 77034-8 ####[facility] [id number] [place] [address] [place] OF AMERICAChloride [Moles/Vol]108 mmol/L Clzx35-445EwdbbfrexWilson Memorial Hospital on above:Order Comment: Specimen Type: BLOOD SPECIMENOrdering Facility: [facility] Address:[address] [place], [place] [address]Performed By: #### 13124-7 ####[facility] [id number] [place] [address] [place] AMERICACO2 [Moles/Vol]24 mmol/EHbxfnp46-13LcdskhkzaWilson Memorial Hospital on above:Order Comment: Specimen Type: BLOOD SPECIMENOrdering Facility: [facility] Address:[address] [place], [place] [address]Performed By: #### 13565-0 ####[facility] [id number] [place] [address] [place] AMERICACreatinine [Mass/Vol]0.79 mg/dLNormal0.73-1.22[facility] on above:Order Comment: Specimen Type: BLOOD SPECIMENOrdering Facility: [facility] Address:[address] [place], [place] [address]Performed By: #### 80454-8 ####[facility] [id number] [address] STATES OF [place] ESTIMATED GLOMERULAR FILTRATION RATE91 mL/min/1.73m???Normal>=60[facility] on above:Order Comment: Specimen Type: BLOOD SPECIMENOrdering Facility: [facility] Address:[address] [place], [place] [address]Result Comment: Estimated Glomerular Filtration Rate (eGFR) is calculated using the 2020 CKD-EPI creatinine equation. This equation utilizes serum creatinine, sex, and age as parameters. The creatinine assay has traceable calibration to isotope dilution-mass spectrometry. Refer to KDIGO guidelines f or clinical interpretation. In patients with unstable renal function, e.g. those with acute kidney injury, the eGFR may not accurately reflect actual GFR. Performed By: #### 63685-2 ####[facility] [id number] [place] [address] [place] Glucose [Mass/Vol]137 mg/cLHxdo57-67AlhvkzmiiWilson Memorial Hospital on above: Order Comment: Specimen Type: BLOOD SPECIMENOrdering Facility: [facility] Address:[address] [place], [place] [address]Result Comment: The [place] Diabetes Association (ADA) provides guidance for cutoff values for fast ing glucose and random glucose. The ADA defines [...] Standards of Medical Care in Diabetes 2016, [place] [employer]. Diabetes Care. 2016.39(Suppl 1).Performed By: #### 02764-4 ####[facility] [id number] [place] [address] [place] AMERICAPotassium [Moles/Vol]4.0 mmol/L Normal3.7-5.1COhioHealth Mansfield Hospital on above:Order Comment: Specimen Type: BLOOD SPECIMENOrdering Facility: [facility] Address:[address] [place], [place] [address]Performed By: #### 95525-0 ####[facility] [id number] [place] [address] [place] AMERICASodium [Moles/Vol]141 mmol/VGsdxym312-739WklativzlWilson Memorial Hospital on above:Order Comment: Specimen Type: BLOOD SPECIMENOrdering Facility: [facility] Address:[address] [place], [place] [address]Performed By: #### 64079-2 ####[facility] [id number] [place] [address] [place] AMERICAUrea nitrogen [Mass/Vol]18 mg/dLNormal9-24[facility] on above:Order Comment: Specimen Type: BLOOD SPECIMENOrdering Facility: [facility] Address:[address] [place], [place] [address]Performed By: #### 85483-3 ####[facility] [id number] [place] [address] [place] CALCULI ANALYSISon 90-99-8968Cvklwyqj analysis [Interp]NormalWilson Memorial Hospital on above:Order Comment: Specimen Type: CALCULUS SPECIMENOrdering Facility: [facility] Address: [address] [place], [place] [address]Result Comment: This test was developed and its performance characteristics determined by [facility]'s [facility] HospitalAltagracia [facility] Path[facility] Laboratory [facility] ([facility]PL[facility]). It has not been cleared or approved by the FDA. -[facility] is regulated under CLIA as qualified to perform high-complexity testing. This test is used for clinical purposes. It should not be regarded as investigational orfor research.Performed By: #### CSA ####[facility] [id number] [place] [address] [place] AMERICACALCULUS COLORBROWNNormalWilson Memorial Hospital on above:Order Comment: Specimen Type: CALCULUS SPECIMENOrdering Facility: [facility] Address: [address] [place], [place] [address]Performed By: #### CSA ####[facility] [id number] [address] STATES OF AMERICACALCULUS COMPOSITION 150% Calcium Oxalate MonohydrateNDelaware County Hospital on above:Order Comment: Specimen Type: CALCULUS SPECIMENOrdering Facility: [facility] Address: [address] [place], [place] [address]Performed By: #### CSA ####[facility] [id number] [address] STATES OF AMERICACALCULUS COMPOSITION 240% Calcium Oxalate DihydrateNormalWilson Memorial Hospital on above:Order Comment: Specimen Type: CALCULUS SPECIMENOrdering Facility: [facility] Address: [address] [place], [place] [address]Performed By: #### CSA ####[facility] [id number] [address] OF AMERICACALCULUS COMPOSITION 310% Minor ComponentsNormalCOhioHealth Mansfield Hospital on above:Order Comment: Specimen Type: CALCULUS SPECIMENOrdering Facility: [facility] Address: [address] [place], [place] [address]Performed By: #### CSA ####[facility] [id number] [address] STATES OF AMERICACALCULUS SIZE AND WT0.4 X 0.3 X 0.1 CM 0.0163 GRAMSNormalCOhioHealth Mansfield Hospital on above:Order Comment: Specimen Type: CALCULUS SPECIMENOrdering Facility: [facility] Address: [address] [place], [place] [address]Performed By: #### CSA ####[facility] [id number] [address] STATES OF AMERICACALCULUS TYPECalculus, CALCULI/CALCULUSNormalCzanesville city hospitaland [facility] on above:Order Comment: Specimen Type: CALCULUS SPECIMENOrdering Facility: [facility] Address: [address] [place] [address]Performed By: #### CSA ####[facility] [id number] [address] OF GALION HOSPITALCBC panel Auto (Bld)on 64-54-1575Yugxrbfjdtu distribution width (RBC) [Ratio]12.7 %Fhdlhl70.5-15.0[facility] on above:Order Comment: Specimen Type: BLOOD SPECIMENOrdering Facility: [facility] Address:[address] [place] [address]Performed By: #### 29180-3 ####[facility] [id number] [place] [address] [place] AMERICAHematocrit (Bld) [Volume fraction]35.7 %Low39.0-51.0[facility] on above: Order Comment: Specimen Type: BLOOD SPECIMENOrdering Facility: [facility] Address:[address] [place], [place] [address]Performed By: #### 80814-9 ####[facility] [id number] [address] STATES OF AMERICAHemoglobin (Bld) [Mass/Vol]12.1 g/dLLow13.0-17.0[facility] on above:Order Comment: Specimen Type: BLOOD SPECIMENOrdering Facility: [facility] Address:[address] [place], [place] [address]Performed By: #### 92242-4 ####[facility] [id number] [address] (RBC) [Entitic mass]31.8 xyKtbgpj47.0-34.0[facility] on above:Order Comment: Specimen Type: BLOOD SPECIMENOrdering Facility: [facility] Address:[address] [place], [place] [address]Performed By: #### 84751-4 ####[facility] [id number] [address] DAY STREETMCHC (RBC) [Mass/Vol] 33.9 g/uQKuihhk31.5-36.0[facility] on above:Order Comment: Specimen Type: BLOOD SPECIMENOrdering Facility: [facility] Address:[address] [place], [place] [address]Performed By: #### 77445-9 ####[facility] [id number] [address] (RBC) [Entitic vol]93.7 fFVswlkb85.0-100.0[facility] on above:Order Comment: Specimen Type: BLOOD SPECIMENOrdering Facility: [facility] Address:[address] [place] [address]Performed By: #### 58846-8 ####[facility] [id number] [address] [address] [place] OF AMERICANucleated RBC (Bld) [#/Vol]10*3/uLNormal<0.01[facility] on above:Order Comment: Specimen Type: BLOOD SPECIMENOrdering Facility: [facility] Address:[address] [place] [address]Performed By: #### 01829-8 ####[facility] [id number] [place] [address] [place] AMERICAPlatelet mean volume (Bld) [Entitic vol]11.3 fLNormal9.0-12.7COhioHealth Mansfield Hospital on above:Order Comment: Specimen Type: BLOOD SPECIMENOrdering Facility: [facility] Address:[address] [place] [address]Jpnfndkum By: #### 90614-7 ####[facility] [id number] [place] [address] [place] AMERICAPlatelets (Bld) [#/Vol]179 10*3/cZQnjocg741-472WenhdflifWilson Memorial Hospital on above:Order Comment: Specimen Type: BLOOD SPECIMENOrdering Facility: [facility] Address:[address] [place] [address]Cvcbzeblj By: #### 28523-7 ####[facility] [id number] [place] [address] [place] AMERICARBC (Bld) [#/Vol]3.81 10*6/uLLow4.20-6.00[facility] on above:Order Comment: Specimen Type: BLOOD SPECIMENOrdering Facility: [facility] Address:[address] [place] [address]Performed By: #### 71788-4 ####[facility] [id number] [place] [address] [place] AMERICAWBC (Bld) [#/Vol]16.02 10*3/uL High3.70-11.00[facility] on above:Order Comment: Specimen Type: BLOOD SPECIMENOrdering Facility: [facility] Address:[address] [place], [place] [address]Performed By: #### 44596-0 ####[facility] [id number] [place] [address] [place] AMERICAErythrocyte distribution width (RBC) [Ratio]12.8 % Coqetp32.5-15.0[facility] on above:Order Comment: Specimen Type: BLOOD SPECIMENOrdering Facility: [facility] Address:[address] [place] [address]Performed By: #### 66300-0 ####[facility] [id number] [address] STATES OF AMERICAHematocrit (Bld) [Volume fraction]32.6 %Low39.0-51.0[facility] on above:Order Comment: Specimen Type: BLOOD SPECIMENOrdering Facility: [facility] Address:[address] [place] [address]Performed By: #### 65915-5 ####[facility] [id number] [place] [address] [place] AMERICAHemoglobin (Bld) [Mass/Vol]11.1 g/dLLow13.0-17.0[facility] on above:Order Comment: Specimen Type: BLOOD SPECIMENOrdering Facility: [facility] Address:[address] [place], [place] [address]Performed By: #### 89120-9 ####[facility] [id number] [address] (RBC) [Entitic mass]31.6 dnLeloim05.0-34.0[facility] on above:Order Comment: Specimen Type: BLOOD SPECIMENOrdering Facility: [facility] Address:[address] [place], [place] [address]Performed By: #### 31101-7 ####[facility] [id number] [address] (RBC) [Mass/Vol] 34.0 g/oTOziwxh97.5-36.0[facility] on above:Order Comment: Specimen Type: BLOOD SPECIMENOrdering Facility: [facility] Address:[address] [place], [place] [address]Performed By: #### 03135-4 ####[facility] [id number] [address] (RBC) [Entitic vol]92.9 yRQwbfsa21.0-100.0[facility] on above:Order Comment: Specimen Type: BLOOD SPECIMENOrdering Facility: [facility] Address:[address] [place], [place] [address]Performed By: #### 41735-2 ####[facility] [id number] [address] RBC (Bld) [#/Vol]10*3/uLNormal<0.01[facility] on above:Order Comment: Specimen Type: BLOOD SPECIMENOrdering Facility: [facility] Address:[address] [place], [place] [address]Performed By: #### 73823-4 ####[facility] [id number] [address], [place] [address] [place] AMERICAPlatelet mean volume (Bld) [Entitic vol]11.2 fLNormal9.0-12.7COhioHealth Mansfield Hospital on above:Order Comment: Specimen Type: BLOOD SPECIMENOrdering Facility: [facility] Address:[address] [place], [place] [address]Performed By: #### 88206-0 ####[facility] [id number] [place] [address] [place] AMERICAPlatelets (Bld) [#/Vol]172 10*3/qWLutnhg187-955EjzqnxnrcWilson Memorial Hospital on above:Order Comment: Specimen Type: BLOOD SPECIMENOrdering Facility: [facility] Address:[address] [place], [place] [address]Performed By: #### 80318-3 ####[facility] [id number] [place] [address] [place] AMERICARBC (Bld) [#/Vol]3.51 10*6/uLLow4.20-6.00[facility] on above:Order Comment: Specimen Type: BLOOD SPECIMENOrdering Facility: [facility] Address:[address] [place] [address]Performed By: #### 99921-7 ####[facility] [id number] [place] [address] [place] AMERICAWBC (Bld) [#/Vol]11.53 10*3/uL High3.70-11.00[facility] on above:Order Comment: Specimen Type: BLOOD SPECIMENOrdering Facility: [facility] Address:[address] [place], [place] [address]Performed By: #### 38028-0 ####[facility] [id number] [place] [address] [place] AMERICACONSULT PROGon 58-61-1564HCNBAXK PROGHNO ID: [id number] Author: Uzma Bates MD Service: Cardiovascular Medicine [...] 1.3 mL INTRAVENOUS DIRECTED PRN PHYSICAL EXAM: 08/27/227 08/28/22 0106 08/28/22 0523 08/28/22 0927 BP: 124/66 [...] 08/28/2022 1045 Gross per 24 hour Intake 29056.5 ml Output 86765 ml Net -77133.5 ml TELEMETRY: DATA: Laboratory: Recent Labs 08/28/22 [...] (2000) and TURP (2006) who presented to [facility] ED 08/26/22 for development of gross hematuria with lower pelvic pain x2 days. He was found to have elevated WBC with + UA, and started on IV atbx. He was transferred to [facility] 08/27 for further management. He was continued [...] RCRI score is 1 for hx of [place], making him a class II risk. This equates to a 6.0% 30-day risk of , [place], or cardiac arrest. Pt denies any cardiac complaints. Per Dr. Bates, no absolute contraindication to proceeding with urologic p (more content not included)...NormalAccess Hospital DaytonComprehensive metabolic 2000 panelon 72-69-2812Pivhehc [Mass/Vol]4.1 g/dLNormal3.9-4.9CBlanchard Valley [facility] Comment on above:Order Comment: Specimen Type: BLOOD SPECIMENOrdering Facility: [facility] Address:[address] [place], [place] [address] [address] Performed By: #### 21375-4, 60430-1, 2777-1 ####[facility] [id number] [address] [place] AMERICAALP [Catalytic activity/Vol]119 U/YJqrl02-984XqlvqofseAccess Hospital Dayton Comment on above:Order Comment: Specimen Type: BLOOD SPECIMENOrdering Facility: [facility] Address:[address] [place] [address] Performed By: #### 34642-8, 11390-8, 2776- ####[facility] [id number] VIL[place] [address] [place] AMERICAALT [Catalytic activity/Vol]23 U/VOigphm48-82EdwevxwdjAccess Hospital Dayton Comment on above:Order Comment: Specimen Type: BLOOD SPECIMENOrdering Facility: [facility] Address:[address] [place] [address] Performed By: #### 99357-0, 44970-4, 277- ####[facility] [id number], [place] [address] [place] AMERICAAnion gap [Moles/Vol]10 mmol/LNormal9-18Access Hospital DaytonComment on above:Order Comment: Specimen Type: BLOOD SPECIMENOrdering Facility: [facility] Address:[address] [place], [place] [address] Performed By: #### 05031-3, 95495-0, 277- ####[facility] [id number], [place] [address] [place] AMERICAAST [Catalytic activity/Vol]21 U/XZfwdfm22-80ZdmnspbjvAccess Hospital [facility] Comment on above:Order Comment: Specimen Type: BLOOD SPECIMENOrdering Facility: [facility] Address:[address] [place], [place] [address] Performed By: #### 10959-1, 40275-9, 277- ####[facility] [id number] VILLE [address] [place] AMERICABilirubin [Mass/Vol]1.1 mg/dLNormal0.2-1.3CBlanchard Valley Health System [facility] Comment on above:Order Comment: Specimen Type: BLOOD SPECIMENOrdering Facility: [facility] Address:[address] [place], [place] [address] Performed By: #### 24212-4, 57452-6, 2777- ####[facility] [id number], [place] [address] [place] AMERICACalcium [Mass/Vol]9.1 mg/dLNormal8.5-10.2CBlanchard Valley Health System [facility] Comment on above:Order Comment: Specimen Type: BLOOD SPECIMENOrdering Facility: [facility] Address:[address] [place] [address] Performed By: #### 51416-5, 71703-0, 277- ####[facility] [id number], [place] [address] [place] AMERICAChloride [Moles/Vol]105 mmol/XIjapsr09-454PpdypojinAccess Hospital Dayton Comment on above:Order Comment: Specimen Type: BLOOD SPECIMENOrdering Facility: [facility] Address:[address] [place], [place] [address] Performed By: #### 00989-9, 40227-3, 277- ####[facility] [id number], [place] [address] [place] AMERICACO2 [Moles/Vol]24 mmol/ARdhmwi00-48UnwhvzupgAccess Hospital DaytonComment on above:Order Comment: Specimen Type: BLOOD SPECIMENOrdering Facility: [facility] Address:[address] [place] [address]Performed By: #### 01943-8, 40669-3, 277- ####[facility] [id number] VILLE [address] [place] Creatinine [Mass/Vol]0.76 mg/dLNormal0.73-1.22Access Hospital DaytonComment on above:Order Comment: Specimen Type: BLOOD SPECIMENOrdering Facility: [facility] Address:[address] [place], [place] [address] Performed By: #### 09964-8, 35591-52776-02 ####[facility] [id number] VILLE [address] [place] AMERICAESTIMATED GLOMERULAR FILTRATION RATE93 mL/min/1.73m???Normal>=60[facility] on above:Order Comment: Specimen Type: BLOOD SPECIMENOrdering Facility: [facility] Address:[address] [place], [place] [id number] Comment: Estimated Glomerular Filtration Rate (eGFR) is calculated using the 2020 CKD-EPI creatinine equation. This equation utilizes serum creatinine, sex, and age as parameters. The creatinine assay has traceable calibration to isotope dilution-mass spectrometry. Refer to KDIGO guidelines for clinical interpretation. In patients with unstable renal function, e.g. those with acute kidney injury, the eGFR may not accurately reflect actual GFR.Performed By: #### 94301-7, 48211-9, 2776-02 ####[facility] [id number] VILLE [address] [place] AMERICAGlucose [Mass/Vol]147 mg/gOChse43-67XifxdjhotWilson Memorial Hospital on above:Order Comment: Specimen Type: BLOOD SPECIMENOrdering Facility: [facility] Address:[address] [place], [place] [address] Comment: The [place] Diabetes Association (ADA) provides guidance for cutoff [...] Standards of Medical Care in Diabetes 2016, [place] [employer]. Diabetes Care. 2016.39(Suppl 1).Performed By: #### 57951-6, 89203- 8, 2776-02 ####[facility] [id number], [place] [address] [place] AMERICAPotassium [Moles/Vol] 4.2 mmol/LNormal3.7-5.1COhioHealth Mansfield Hospital on above:Order Comment: Specimen Type: BLOOD SPECIMENOrdering Facility: [facility] Address:[address] [place], [place] [address]Performed By: #### 14668-5, 00162-5, 277- ####[facility] [id number], [place] [address] [place] AMERICAProtein [Mass/Vol]6.6 g/dLNormal6.3-8.0[facility] on above:Order Comment: Specimen Type: BLOOD SPECIMENOrdering Facility: [facility] Address:[address] [place] [address]Performed By: #### 18948-6, 96620-0, 277- ####[facility] [id number], [place] [address] [place] AMERICASodium [Moles/Vol]139 mmol/RAhvenh625-256BgvithufrWilson Memorial Hospital on above:Order Comment: Specimen Type: BLOOD SPECIMENOrdering Facility: [facility] Address:[address] [place] [address]Performed By: #### 39388-2, 43464-0, 277- ####[facility] [id number], [place] [address] [place] AMERICAUrea nitrogen [Mass/Vol]14 mg/dLNormal9-24[facility] on above:Order Comment: Specimen Type: BLOOD SPECIMENOrdering Facility: [facility] Address:[address] [place] [address]Performed By: #### 85103-1, 82833-3, 2777-1 ####[facility] [id number] [place] [address] [place] AMERICAECHOon 68-26-8949EijdkkhemfkvqrjtVomtlslvnrfomkoc Report: Transthoracic Echo 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 MANAGER Ordering physician: DAVID ANDREWS Indication: Evaluation of [...] * * Final * * * [facility] : [id number]z Access Hospital DaytonHISTORY PHYSICALon 31-60-0919WGYTDVJ PHYSICALHNO ID: [id number] Author: Earnest Portillo MD Service: Critical Care Author Type: Physician Type: HANDP Filed: 08/28/2022 10:48 PM Note Text: SERVICE DATE: 08/28/2022 SERVICE TIME: 9:49 PM SICU HANDP NOTE HPI: Olaf Briones is a 77 year old male with PMHx of recent STEMI on 08/20/22 (s/p JUHI),HTN, HLD, DM, nephrolithiasis, transferred from [facility] for gross hematuria. He is now [...] Is Patient Clinically Ready to Transfer to [facility] or SDU?: No Discharge Planning: To [...] ASA and ticagrelor Coronary artery disease involving [place] coronary artery of [place] heart without angina pectoris recent STEMI on 08/20/22 s/p JUHI Plan -Continue DAPT with ASA and ticagrelor Endocrinology Type 2 diabetes mellitus without complication, without long-term current use of insulin (HCC) No (more content not included)...NormalAccess Hospital DaytonMagnesium SerPl-mCncon 90-58-2407Wxtxifhzp [Mass/Vol]2.1 mg/dLNormal1.7-2.3CBlanchard Valley Health System Bl[facility] HospitalComtrinity health oak[facility] hospital on above:Order Comment: Specimen Type: BLOOD SPECIMENOrdering Facility: [facility] Address:[address] [place], [place] [address]Performed By: #### 96587-8, 34297-1, 2777-1 ####[facility] [id number] STATES OF AMERICAOPERATIVE NOon 08-28-2022 OPERATIVE NOHNO ID: [id number] Author: David Andrews MD Service: Urology Author Type: Physician Type: Operative Report Filed: 08/28/2022 8:20 PM Note Text: OPERATIVE/PROCEDURE REPORT LOG ID: [id number] Surgery/Procedure Date: 08/28/2022 Incision/Procedure Start Time: 6:17 PM Incision Close/Procedure End Time: 7:50 PM Surgeon(s)/Proceduralist(s) and District Fire Chief(s): Surgeon(s) and Role: * David Andrews MD [...] with modest success. We then used the Curvo evacuator to clear out the remaining clot. 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 to allow for the stone to be [...] dictating on behalf of David Andrews MD [facility] STAFF PHYSICIAN NOTE OF PE (more content not included)...NormalAccess Hospital DaytonPhosphate SerPl-mCncon 88-11-5939Rfgntymhv [Mass/Vol]2.9 mg/dL Normal2.7-4.8CBlanchard Valley Health System Blanchard Valley HospitalComment on above:Order Comment: Specimen Type: BLOOD SPECIMENOrdering Facility: [facility] Address:[address] [place], [place] [address] [address]Ocgywymlc By: #### 62147-1, 00832-2, 2777-1 ####[facility] [id number] DAY STREETSURGICAL PATHOLOGYon 08-28-2022 CASE REPORTNoOhioHealth Doctors Hospital on above:Order Comment: Specimen Type: TISSUE SPECIMENOrdering Facility: [facility] Address: [address] [place], [place] [address]Result Comment: Surgical Pathology Report Case: [id number] Authorizing Provider: David Andrews MD Collected: 08/28/2022 06:54 PM Ordering Location: Admitting Received: 08/29/2022 07:58 AM Pathologist: Gal Poon MD Specimens: A) - PROSTATE TISSUE (CHIPS) B) - PROSTATE TISSUE (CHIPS), #2Performed By: #### S ####[facility] [id number] [address]ETCLINICAL HISTORYNoOhioHealth Doctors Hospital on above:Order Comment: Specimen Type: TISSUE SPECIMENOrdering Facility: [facility] Address: [address] [place], [place] [address]Result Comment: Pre-op diagnosis: Hematuria [R31.9]Performed By: #### S ####[facility] [id number] [address] FINAL DIAGNOSISPremier Health Atrium Medical Center on above:Order Comment: Specimen Type: TISSUE SPECIMENOrdering Facility: [facility] Address: [address] [place], [place] [address]Result Comment: A. Prostate, transurethral resection: - Benign prostatic hyperplasia. A. 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 Performed By: #### S ####[facility] [id number] [address]FINAL PERFORMING LABNormalCBlanchard Valley Health System Blanchard Valley HospitalComment on above:Order Comment: Specimen Type: TISSUE SPECIMENOrdering Facility: [facility] Address: [address] [place], [place] [address]Result Comment: Diagnostic interpretation performed at [facility] [place] [address] CLIA# [id number] Eligibility Technician: Jacob Urias M.D.Performed By: #### S ####[facility] [id number] [address] OF G[facility]ION HOSPITALGROSS DESCRIPTIONNormalCBlanchard Valley Health System [facility] Comment on above:Order Comment: Specimen Type: TISSUE SPECIMENOrdering Facility: [facility] Address: [address] [place] [address] Result Comment: A. PROSTATE TISSUE (CHIPS) Received in formalin on [facility] are multiple segments of irregular chatterjee-brown to [...] cassette B1. Gross examination performed at [facility], [address] [place] [address] 08/29/2022 2:10 PMPerformed By: #### S ####[facility] [id number] [place] [address] [place] OF AMERICAVENOUS BLOOD GASES WITH IONIZED MAGNESIUMon 38-55-1328RXIE DEFICIT, VENOUS-1 mmol/NFrujoa-2-9GvuawqwocWilson Memorial Hospital on above:Order Comment: Specimen Type: VENOUS BLOOD SPECIMENOrdering Facility: [facility] Address: [address] [place], [place] [address]Performed By: #### VALLMG ####[facility] [id number] [place] [address] [place] AMERICACalcium.ionized (Bld) [Mass/Vol]1.19 mmol/LNormal1.08-1.30[facility] on above: Order Comment: Specimen Type: VENOUS BLOOD SPECIMENOrdering Facility: [facility] Address: [address] [place], [place] [address]Performed By: #### VALLMG ####[facility] [id number] [place] [address] [place] AMERICACalcium.ionized adjusted to pH 7.4 (BldA) [Moles/Vol]1.18 mmol/LNormal1.08-1.30[facility] on above:Order Comment: Specimen Type: VENOUS BLOOD SPECIMENOrdering Facility: [facility] Address: [address] [place], [place] [address]Performed By: #### VALLMG ####[facility]IA [id number] [place] [address] [place] AMERICACarboxyhemoglobin (BldV) [Mass fraction]1.9 %Normal0.0-2.0 [facility] on above:Order Comment: Specimen Type: VENOUS BLOOD SPECIMENOrdering Facility: [facility] Address: [address] [place], [place] [address]Result Comment: Carboxyhemoglobin Reference Range for Smokers: 2.0-8.0%Performed By: #### VALLMG ####[facility] [id number] [place] [address] [place] AMERICACO2 (BldV) [Partial pressure]40 mm[Hg]Eik33-12UmggweigtWilson Memorial Hospital on above:Order Comment: Specimen Type: VENOUS BLOOD SPECIMENOrdering Facility: [facility] Address: [address] [place], [place] [id number] By: #### VALLMG ####[facility] [id number] [place] [address] [place] AMERICACO2 [Moles/Vol]25 mmol/MVmswbf49-27GiqyweaivAccess Hospital Dayton Comment on above:Order Comment: Specimen Type: VENOUS BLOOD SPECIMENOrdering Facility: [facility] Address: [address] [place], [place] [id number] By: #### VALLMG ####[facility] [id number] [place] [address] [place] CO2 adjusted to patient's actual temperature (BldV) [Partial pressure]40 mmHgLow 42-55Access Hospital DaytonComtrinity health oakland hospital on above:Order Comment: Specimen Type: VENOUS BLOOD SPECIMENOrdering Facility: [facility] Address: [address] [place], [place] [id number] By: #### VALLMG ####[facility] [id number] [place] [address] [place] AMERICAGlucose [Mass/Vol]120 mg/wXZfaz53-523UvoxttdlnAccess Hospital DaytonComment on above:Order Comment: Specimen Type: VENOUS BLOOD SPECIMENOrdering Facility: [facility] Address: [address] [place], [place] [id number] By: #### VALLMG ####[facility] [id number] [place] [address] [place] AMERICAHCO3 (Bld) [Moles/Vol]24 mmol/ZYxbnzg44-73YjakjdxovWilson Memorial Hospital on above:Order Comment: Specimen Type: VENOUS BLOOD SPECIMENOrdering Facility: [facility] Address: [address] [place], [place] [id number] By: #### VALLMG ####[facility] [id number] [place] [address] [place] AMERICAHematocrit (Bld) [Volume fraction]37.2 %Low39.0-51.0[facility] on above:Order Comment: Specimen Type: VENOUS BLOOD SPECIMENOrdering Facility: [facility] Address: [address] [place], [place] [address]Performed By: #### VALLMG ####[facility] [id number] [place] [address] [place] AMERICAHemoglobin (Bld) [Mass/Vol]12.1 g/dLLow13.0-17.0[facility] on above:Order Comment: Specimen Type: VENOUS BLOOD SPECIMENOrdering Facility: [facility] Address: [address] [place], [place] [address]Performed By: #### VALLMG ####[facility] [id number] [place] [address] [place] AMERICALactate [Moles/Vol]1.4 mmol/LNormal0.5-2.2ClevelOhioHealth Berger Hospital on above:Order Comment: Specimen Type: VENOUS BLOOD SPECIMENOrdering Facility: [facility] Address: [address] [place], [place] [address]Performed By: #### VALLMG ####[facility] [id number] [place] [address] [place] AMERICAMagnesium [Moles/Vol]0.58 mmol/LNormal0.45-0.60[facility] on above:Order Comment: Specimen Type: VENOUS BLOOD SPECIMENOrdering Facility: [facility] Address: [address] [place], [place] [address]Performed By: #### VALLMG ####[facility] [id number] [place] [address] [place] AMERICAMethemoglobin (Bld) [Mass fraction]1.7 %High0.0-1.5COhioHealth Mansfield Hospital on above:Order Comment: Specimen Type: VENOUS BLOOD SPECIMENOrdering Facility: [facility] Address: [address] [place], [place] [address]Performed By: #### VALLMG ####[facility] [id number] [place] [address] [place] AMERICAOxygen (BldV) [Partial pressure]96 mm[Hg]Fdeq51-62TpuurskfvWilson Memorial Hospital on above:Order Comment: Specimen Type: VENOUS BLOOD SPECIMENOrdering Facility: [facility] Address: [address] [place], [place] [address]Performed By: #### VALLMG ####[facility] [id number] [place] [address] [place] AMERICAOxygen adjusted to patient's actual temperature (BldV) [Partial pressure]96 haDdGclg19-31DhbxvirwxWilson Memorial Hospital on above:Order Comment: Specimen Type: VENOUS BLOOD SPECIMENOrdering Facility: [facility] Address: [address] [place], [place] [address]Performed By: #### VALLMG ####[facility] [id number] [place] [address] [place] AMERICAOxygen saturation in Venous blood 97 %Suqx59-51ZnpevxeauWilson Memorial Hospital on above:Order Comment: Specimen Type: VENOUS BLOOD SPECIMENOrdering Facility: [facility] Ad dress: [address] [place] [address]Performed By: #### VALLMG ####[facility] [id number] [place] [address] [place] AMERICAOxyhemoglobin (BldV) [Mass fraction]94 %Upgf32-92MwokgmuzsWilson Memorial Hospital on above:Order Comment: Specimen Type: VENOUS BLOOD SPECIMENOrdering Facility: [facility] Address: [address] [place], [place] [address]Performed By: #### VALLMG ####[facility] [id number] [place] [address] [place] AMERICApH (BldV)7.39 [pH]Normal7.32-7.42 [facility] ClevelandComment on above:Order Comment: Specimen Type: VENOUS BLOOD SPECIMENOrdering Facility: [facility] Address: [address]Performed By: #### VALLMG ####[facility] [id number] [place] [address] [place] AMERICApH adjusted to patient's actual temperature (BldV) 7.49Xqifsi2.32-7.42[facility] on above:Order Comment: Specimen Type: VENOUS BLOOD SPECIMENOrdering Facility: [facility] Address: [address] [place], [place] [address]Performed By: #### VALLMG ####[facility] [id number] [place] [address] [place] AMERICAPotassium [Moles/Vol]3.8 mmol/L Normal3.5-5.0Access Hospital DaytonComtrinity health oakland hospital on above:Order Comment: Specimen Type: VENOUS BLOOD SPECIMENOrdering Facility: [facility] Ad dress: [address]Performed By: #### VALLMG ####[facility] [id number] [place] [address] [place] AMERICASodium [Moles/Vol]139 mmol/L Phasjd667-070PtpiootiiWilson Memorial Hospital on above:Order Comment: Specimen Type: VENOUS BLOOD SPECIMENOrdering Facility: [facility] Ad dress: [place] [address]Performed By: #### VALLMG ####[facility] [id number] [place] [address] [place] AMERICAXR CHEST 1V FRONTAL PORTon 63-51-7414ZJ CHEST 1V FRONTAL PORT* * *Final Report* * * DATE OF [...] tortuous. Other: Generalized osteopenia. IMPRESSION: See result. Distribution Engineering Technologist: PSCB Transcribe Date/Time: Aug 28 2022 10:04P Dictated by : AMERICO ADHIKARI MD This examination was interpreted and the report reviewed and electronically signed by: AMERICO ADHIKARI MD on Aug 28 2022 10:06PM EST [id number] Hospital DaytonBacteria Bld Culton 69-76-3931Upxwncsl identified Cx Nom (Bld)CULTURE, BLOOD: No growth 5 daysNormAdena Pike Medical Center on above:Performed By: #### 600-7 ####[facility] [id number] [place] [address] [place] AMERICABacteria identified Cx Nom (Bld)CULTURE, BLOOD: No growth 5 daysNormAdena Pike Medical Center on above:Performed By: #### 600-7 ####[facility] [id number] [place] [address] [place] AMERICABacteria Ur Culton 85-17-8591Ldfycwdc identified Cx Nom (U)CULTURE, URINE: No growth (<1,000 CFU/ml)NormalWilson Memorial Hospital on above: Performed By: #### 630-4 ####[facility] [id number] [address] [address] [place] AMERICABasic metabolic 2000 panelon 34-63-8689Qlazd gap [Moles/Vol]13 mmol/LNormal9-18 [facility] on above:Order Comment: Specimen Type: BLOOD SPECIMENOrdering Facility: [facility] Address:[address] [place], [place] [address]Performed By: #### 18250-5, , 2776-02 ####[facility] [id number], [place] [address] [place] AMERICACalcium [Mass/Vol]9.3 mg/dLNormal 8.5-10.2COhioHealth Mansfield Hospital on above:Order Comment: Specimen Type: BLOOD SPECIMENOrdering Facility: [facility] Address:[address] [place], [place] [address]Performed By: #### 78861-0, , 2776-02 ####[facility] [id number], [place] [address] [place] AMERICAChloride [Moles/Vol]105 mmol/L Vbqaed47-678VgpteyzdbWilson Memorial Hospital on above:Order Comment: Specimen Type: BLOOD SPECIMENOrdering Facility: [facility] Address:[address] [place], [place] [address]Performed By: #### 67980-1, , 2776-02 ####[facility] [id number], [place] [address] [place] AMERICACO2 [Moles/Vol]22 mmol/LNormal 22-30[facility] on above:Order Comment: Specimen Type: BLOOD SPECIMENOrdering Facility: [facility] Address:[address] [place], [place] [address]Performed By: #### 73619-4, , 2776-02 ####[facility] [id number], [place] [address] [place] AMERICACreatinine [Mass/Vol]0.79 mg/dL Normal0.73-1.22[facility] on above:Order Comment: Specimen Type: BLOOD SPECIMENOrdering Facility: [facility] Address:[address] [place] [address]Nkfbiplgx By: #### 22211-0, , 2776-02 ####[facility] [id number] VILLE [address] [place] AMERICAESTIMATED GLOMERULAR FILTRATION RATE91 mL/min/1.73m???Normal>=60[facility] on above:Order Comment: Specimen Type: BLOOD SPECIMENOrdering Facility: [facility] Address:[address] [place], [place] [address] Comment: Estimated Glomerular Filtration Rate (eGFR) is calculated using the 2020 CKD-EPI creatinine equation. This equation utilizes serum creatinine, sex, and age as parameters. The creatinine assay has traceable calibration to isotope dilution-mass spectrometry. Refer to KDIGO guidelines for clinical interpretation. In patients with unstable renal function, e.g. those with acute kidney injury, the eGFR may not accurately reflect actual GFR.Performed By: #### 23347-3, , 2776-02 ####[facility] [id number] VIL[place] [address] [place] Glucose [Mass/Vol]197 mg/tGFgrn39-54MlplvwuqyWilson Memorial Hospital on above: Order Comment: Specimen Type: BLOOD SPECIMENOrdering Facility: [facility] Address:[address] [place], [place] [address] Comment: The [place] Diabetes Association (ADA) provides guidance for cutoff values for fast ing glucose and random glucose. The ADA defines [...] Standards of Medical Care in Diabetes 2016, [place] Diabetes Association. Diabetes Care. 2016.39(Suppl 1).Performed By: #### 04941-8, - , 2776-02 ####[facility] [id number] VILLE [address] [place] AMERICAPotassium [Moles/Vol] 4.3 mmol/LNormal3.7-5.1COhioHealth Mansfield Hospital on above:Order Comment: Specimen Type: BLOOD SPECIMENOrdering Facility: [facility] Address:[address] [place], [place] [address]Performed By: #### 76495-6, , 2776-02 ####[facility] [id number], [place] [address] [place] AMERICASodium [Moles/Vol]140 mmol/ZUteayu727-176MrohwwdifWilson Memorial Hospital on above:Order Comment: Specimen Type: BLOOD SPECIMENOrdering Facility: [facility] Address:[address] [place], [place] [address]Performed By: #### 51284-6, , 2776-02 ####[facility] [id number], [place] [address] [place] AMERICAUrea nitrogen [Mass/Vol]17 mg/dLNormal9-24[facility] on above:Order Comment: Specimen Type: BLOOD SPECIMENOrdering Facility: [facility] Address:[address] [place], [place] [address]Performed By: #### 85472-0, , 2776-02 ####[facility] [id number] [place] [address] [place] OF AMERICACASE MGT INIT Rosa 96-56-0572GUXB MGT INIT RACHAEL ID: [id number] Author: Yane George RN Service: ? Author [...] Current Advance Directive: Health Care Power of Farrowing Worker (Patient reports he has AD. request copy to scan for epic chart) Current Living Arrangements and Support Lives with: Spouse/significant other Type of Residence: Private Residence (House) Does the patient have to climb stairs at home?: stairs outside the home;stairs within the home;Yes Support: Spouse/significant other How do you manage to accomplish the following: Independent: Ambulation;Bathe/Shower;Dress;Meals/Meal Prep;Going to the bathroom;Medication Management;Transportation to appointments/community Current Services/Equipment Current Post-Acute Service(s): (None) Discharge Planning Patient Goal(s): General wellness, Be able to go home [place] of Choice Explained: [place] Given: No Reason Not Given: [...] HLD, DM, nephrolithiasis who was transferred from [facility] to [facility] w/ gross hematuria CM met patient in room. Patient lives with spouse at home. Patient reports independence at home with adl's/iadl's prior to admission. No oxygen, or cpaps at home. Had recent [place] in past. Cardiology on consult. No current [...] 27, 2022 TIME: 5:05 PM CONTACT #: [id number] Clinic Medina Hospital W Auto Differential panel (Bld)on 32-56-3923Xzvtnoetb (Bld) [#/Vol]0.03 10*3/uLNormal <0.11COhioHealth Mansfield Hospital on above:Order Comment: Specimen Type: BLOOD SPECIMENOrdering Facility: [facility] Address:[address] [place], [place] [address]Performed By: #### 73196-7 ####[facility] [id number] [place] [address] [place] AMERICABasophils/100 WBC (Bld)0.2 %NormalWilson Memorial Hospital on above:Order Comment: Specimen Type: BLOOD SPECIMENOrdering Facility: [facility] Address:[address] [place], [place] [address]Performed By: #### 06622-0 ####[facility] [id number] [place] [address] [place] Differential cell count method Nom (Bld)AutoNormalCBlanchard Valley Health System [facility] Comment on above:Order Comment: Specimen Type: BLOOD SPECIMENOrdering Facility: [facility] Address:[address] [place] [address] Performed By: #### 40778-5 ####[facility] [id number] [place] [address] [place] Eosinophils (Bld) [#/Vol]10*3/uLNormal<0.46[facility] on above:Order Comment: Specimen Type: BLOOD SPECIMENOrdering Facility: [facility] Address:[address] [place], [place] [address]Performed By: #### 52857-1 ####[facility] [id number] [place] [address] [place] AMERICAEosinophils/100 WBC (Bld)0.1 %NormalWilson Memorial Hospital on above:Order Comment: Specimen Type: BLOOD SPECIMENOrdering Facility: [facility] Address:[address] [place], [place] [address]Performed By: #### 35713-3 ####[facility] [id number] [place] [address] [place] AMERICAErythrocyte distribution width (RBC) [Ratio]12.5 %Ltgqpl85.5-15.0[facility] on above: Order Comment: Specimen Type: BLOOD SPECIMENOrdering Facility: [facility] Address:[address] [place], [place] [address]Performed By: #### 87912-6 ####[facility] [id number] [place] [address] [place] AMERICAHematocrit (Bld) [Volume fraction]38.5 %Low39.0-51.0[facility] on above: Order Comment: Specimen Type: BLOOD SPECIMENOrdering Facility: [facility] Address:[address] [place], [place] [address]Performed By: #### 62600-8 ####[facility] [id number] [place] [address] [place] AMERICAHemoglobin (Bld) [Mass/Vol]13.4 g/eKXnxvqg27.0-17.0[facility] on above: Order Comment: Specimen Type: BLOOD SPECIMENOrdering Facility: [facility] Address:[address] [place] [address]Performed By: #### 35419-5 ####[facility] [id number] [place] [address] [place] AMERICAImmature granulocytes (Bld) [#/Vol]0.10 10*3/uLHigh<0.10[facility] on above: Order Comment: Specimen Type: BLOOD SPECIMENOrdering Facility: [facility] Address:[address] [place], [place] [address]Performed By: #### 73901-2 ####[facility] [id number] [place] [address] [place] AMERICAImmature granulocytes/100 WBC (Bld)0.6 %NormalWilson Memorial Hospital on above: Order Comment: Specimen Type: BLOOD SPECIMENOrdering Facility: [facility] Address:[address] [place], [place] [address]Performed By: #### 92405-1 ####[facility] [id number] [place] [address] [place] AMERICALymphocytes (Bld) [#/Vol]1.16 10*3/uLNormal1.00-4.00[facility] on above: Order Comment: Specimen Type: BLOOD SPECIMENOrdering Facility: [facility] Address:[address] [place], [place] [address]Performed By: #### 49759-8 ####[facility] [id number] [place] [address] [place] AMERICALymphocytes/100 WBC (Bld)7.1 %NormalWilson Memorial Hospital on above:Order Comment: Specimen Type: BLOOD SPECIMENOrdering Facility: [facility] Address:[address] [place], [place] [address]Performed By: #### 06214-2 ####[facility] [id number] [place] [address] [place] AMERICAMCH (RBC) [Entitic mass]31.5 pg Nlahna35.0-34.0[facility] on above:Order Comment: Specimen Type: BLOOD SPECIMENOrdering Facility: [facility] Address:[address] [place], [place] [address]Performed By: #### 31315-3 ####[facility] [id number] [address] DAY STREETMCHC (RBC) [Mass/Vol]34.8 g/dL Whvkzk59.5-36.0[facility] on above:Order Comment: Specimen Type: BLOOD SPECIMENOrdering Facility: [facility] Address:[address] [place], [place] [address]Performed By: #### 20435-9 ####[facility] [id number] [address]ETV (RBC) [Entitic vol]90.6 fL Qmdfxb84.0-100.0[facility] on above:Order Comment: Specimen Type: BLOOD SPECIMENOrdering Facility: [facility] Address:[address] [place], [place] [address]Performed By: #### 97602-7 ####[facility]IA [id number] [place] [address] [place] AMERICAMonocytes (Bld) [#/Vol]1.00 10*3/uLHigh<0.87[facility] on above:Order Comment: Specimen Type: BLOOD SPECIMENOrdering Facility: [facility] Address:[address] [place], [place] [address]Performed By: #### 67980-9 ####[facility] [id number] [place] [address] [place] AMERICAMonocytes/100 WBC (Bld)6.2 % NormalWilson Memorial Hospital on above:Order Comment: Specimen Type: BLOOD SPECIMENOrdering Facility: [facility] Address:[address] [place], [place] [address]Performed By: #### 93887-6 ####[facility] [id number] [place] [address] [place] AMERICANeutrophils (Bld) [#/Vol]13.93 10*3/uLHigh1.45-7.50 [facility] on above:Order Comment: Specimen Type: BLOOD SPECIMENOrdering Facility: [facility] Address:[address] [place], [place] [address]Performed By: #### 79554-8 ####[facility] [id number] [place] [address] [place] AMERICANeutrophils/100 WBC (Bld)85.8 %NormalAccess Hospital Dayton Comment on above:Order Comment: Specimen Type: BLOOD SPECIMENOrdering Facility: [facility] Address:[address] [place] [address] Performed By: #### 46626-6 ####[facility] [id number] [place] [address] [place] Nucleated RBC (Bld) [#/Vol]10*3/uLNormal<0.01[facility] on above:Order Comment: Specimen Type: BLOOD SPECIMENOrdering Facility: [facility] Address:[address] [place], [place] [address] Performed By: #### 03885-2 ####[facility] [id number] [place] [address] [place] Nucleated RBC/100 WBC (Bld) [Ratio]0.0 /100 WBCNormalCBlanchard Valley Health System [facility] Comment on above:Order Comment: Specimen Type: BLOOD SPECIMENOrdering Facility: [facility] Address:[address] [place], [place] [address] Performed By: #### 62204-6 ####[facility] [id number] [place] [address] [place] Platelet mean volume (Bld) [Entitic vol]11.4 fLNormal9.0-12.7COhioHealth Mansfield Hospital on above:Order Comment: Specimen Type: BLOOD SPECIMENOrdering Facility: [facility] Address:[address] [place] [address]Performed By: #### 31389-1 ####[facility] [id number] [place] [address] [place] Platelets (Bld) [#/Vol]214 10*3/iXRgjcsh170-330AgumdxioeWilson Memorial Hospital on above:Order Comment: Specimen Type: BLOOD SPECIMENOrdering Facility: [facility] Address:[address] [place] [address] Performed By: #### 66075-1 ####[facility] [id number] [address] OF [place] RBC (Bld) [#/Vol]4.25 10*6/uLNormal4.20-6.00[facility] on above:Order Comment: Specimen Type: BLOOD SPECIMENOrdering Facility: [facility] Address:[address] [place], [place] [address]Performed By: #### 19691-6 ####[facility] [id number] [address] OF GALION HOSPITALWBC (Bld) [#/Vol]16.24 10*3/uLHigh3.70-11.00[facility] on above:Order Comment: Specimen Type: BLOOD SPECIMENOrdering Facility: [facility] Address:[address] [place] [address]Performed By: #### 06789-3 ####[facility] [id number] [address] OF GALION HOSPITALCONFIRM BLOOD TYPEon 08-27-2022 ABOONormalCOhioHealth Mansfield Hospital on above:Order Comment: Specimen Type: BLOOD SPECIMENOrdering Facility: [facility] Address:[address] [place], [place] [address]Performed By: #### CONABO ####CC [facility] BLOOD BANKCLIA [id number] [place] [id number] [place] OF AMERICARh Nom (Bld)PositiveNormalCRegency Hospital Companyment on above: Order Comment: Specimen Type: BLOOD SPECIMENOrdering Facility: [facility] Address:[place] [address]Cpvuzvrnk By: #### CONABO ####CC MAIN BLOOD BANKCLIA [id number] [place] [id number] [place] STATES OF AMERICACONSULTon [id number] ID: [id number] Author: Uzma Bates MD Service: Cardiovascular Medicine Author Type: Physician Type: Consults Filed: 08/27/2022 8:39 PM Note Text: [facility] CARDIOVASCULAR MEDICINE CONSULT NOTE (Template ID [id number]) Olaf Briones [id number] PRIMARY SERVICE: Urology CONSULTING SERVICE: Cardiovascular Medicine: [...] HLD, DM, nephrolithiasis who was transferred from pending sale to [facility] w/ gross hematuria. Hematuria started on [...] passed out . 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 In tag and label cutter, there were concerns that pacemaker might be necessary. After stent was deployed in prox RCA,AV block resolved and HR normalized. Pt was put on ASA, Brillinta, Lisinopril (2.5), and Coreg (6.25) and was discharged two days later. PAST MEDICAL HISTORY HTN, HLD, CAD, DM FAMILY HISTORY Son- [place], Daughter- [place] HOME MEDICATIONS allopurinol (ZYLOPRIM) 300 mg tabletTake [...] and No rash o (more content not included)...NormalFayette County Memorial Hospital COMPLETEon 06-12-5108EAZ COMPLETEVentricular Rate : 68 BPM Atrial Rate : 68 BPM P-R Interval : 186 ms QRS Duration : 102 ms Q-T Interval : 452 ms QTC Calculation(Bazett) : 480 ms Calculated P Center Point : 7 degrees Calculated R Center Point : -25 degrees Calculated T Center Point : -33 degrees NORMAL SINUS RHYTHM MINIMAL VOLTAGE CRITERIA FOR LVH, MAY BE NORMAL VARIANT ( R in aVL ) CANNOT EXCLUDE ANTERIOR MYOCARDIAL INFARCTION , AGE UNDETERMINED ABNORMAL ECG Confirmed by CODY MANCIA MD (57) on 09/01/2022 3:04:36 PM NAME : OLAF BRIONES PID : [id number] : 1945 Gender : Male Race : Unknown ORD : [id number] Procedure Date : Aug 27 2022 12:56:05 [...] Referred By : , Acquired by : Floyd MALDONADOParkview Health Bryan HospitalTORY PHYSICALon [id number] PHYSICALHNO ID: [id number] Author: David Andrews MD Service: Urology Author Type: Physician Type: HANDP Filed: 08/27/2022 9:26 PM Note Text: UROLOGY SERVICE HISTORY AND PHYSICAL Name: Olaf Briones Bed: H050 001/H050-01 Date: 08/27/2022 After Hours Main [facility] Service Pager: [phone] ASSESSMENT AND PLAN Olaf Briones is a 77 year old male with PMHx of HTN, HLD, DM, recent STEMI (s/p JUHI), nephrolithiasis, transferred from [facility] for gross hematuria. Currently with 18Fr [...] catheter stops flowing clamp CBI and page [phone] - Will continue to follow urine, if remains clear may be able to avoid OR this admission in setting of recent STEMI requiring PCI - Working to obtain cardiology records from [facility] Gt Encarnacion MD PGY-6, Urology Pager: [phone] After 1800 and on weekends please page [phone] for assistance. Active Problems Prior [place] POA: Yes - placed on ASA 81, [...] recent STEMI (s/p JUHI), nephrolithiasis, transferred from [facility] for gross hematuria. He recently had primary revascularization of proximal RCA (3mm JUHI) placed at [facility] for STEMI on August 20. He [...] He is seen by Dr. Ivory in pending sale to [facility] for nephrolithiasis. He previously had ESWL [...] 5 minutes as need (more content not included)...Normal [facility] [id number] [facility] ID: [id number] Author: Francis Irizarry MD Service: Urology Author Type: Resident Type: Chg in Clinical Condition Filed: 08/27/2022 9:40 AM Note Text: Olaf Briones 08/27/2022 9:33 AM AMET for orthostatic hypotension Assessment: Olaf Briones is a 77 year old male with PMHx of HTN, HLD, DM, recent STEMI (s/p JUHI), nephrolithiasis, transferred from [facility] for gross hematuria. Currently with 18Fr [...] brillinta for recent STEMI last week at [facility]. Unable to see ECHO data, EKG [...] his is coming to visit. Stated his shredded filler cutter operator in [place] at [facility] is Dr. Zamora. Luis Angel on [...] at bedside to have bring records from [facility] to here. Will also request ECHO report from [facility] as well. - Continue CBI, titrate to light pink Discussed with chief, Dr. Encarnacion, and staff, Dr. Juliana Irizarry MD Pager [phone], after hours or weekends please page [phone] Urology Resident, PGY-5NormalCOhioHealth Nelsonville Health Center ID: [id number] Author: Claudy William APRN.CNP Service: Critical Care [...] Briones DATE: August 27, 2022 TIME: 9:11 AMNormalAccess Hospital DaytonMagnesium SerPl-mCncon 08-27-2022 Magnesium [Mass/Vol]2.2 mg/dLNormal1.7-2.3CBlanchard Valley Health System Blanchard Valley HospitalComment on above:Order Comment: Specimen Type: BLOOD SPECIMENOrdering Facility: [facility] Address:[address] [place] [place] [id number] By: #### 43306-9, 24077-0, 2777-1 ####[facility] [id number], [place] [address] [place] PT panel Coag (PPP)on 30-32-7765CZH Coag (PPP) [Relative time]1.0 {INR}Normal 0.9-1.3COhioHealth Mansfield Hospital on above:Order Comment: Specimen Type: BLOOD SPECIMENOrdering Facility: [facility] Address:[place] [address]Result Comment: Vitamin K Antagonist (VKA) Therapeutic Range: INR 2 to 3 (Target INR of 2.5) Note: For patients treated with VKA drugs, such as warfarin, the [place] [employer] 2012 Guideline recommends [...] Chest 2012, 141:7S-47S Daniel RA, et al. [facility] 2017, 70: 252-289Performed By: #### 64334-8, 97014-4 ####[facility] [id number] [place] [address] [place] AMERICAPT Coag (PPP) [Time]10.4 sNormal 9.7-13.0[facility] on above:Order Comment: Specimen Type: BLOOD SPECIMENOrdering Facility: [facility] Address:[address] [place] [phone] By: #### 09461-9, 72584-8 ####[facility] [id number] [place] [address] [place] AMERICAPhosphate SerPl-mCncon 08-27-2022 Phosphate [Mass/Vol]3.7 mg/dLNormal2.7-4.8COhioHealth Mansfield Hospital on above:Order Comment: Specimen Type: BLOOD SPECIMENOrdering Facility: [facility] Address:[address] [place], [place] [address]Performed By: #### 65954-8, 55712-0, 2777-1 ####[facility] LAB[facility] [id number] [address] [place] TYPE + SCREENon 01-02-4510FCRRTwtpyvMvunznwlfOhioHealth Mansfield Hospital on above: Order Comment: Specimen Type: BLOOD SPECIMENOrdering Facility: [facility] Address:[address] [place], [place] [address]Performed By: #### TSCR ####CC MAIN BLOOD BANKCLIA [id number] [place] [address] [place] AMERICAHISTORICAL AB SCR STATUSNegativeNoalCOhioHealth Mansfield Hospital on above:Order Comment: Specimen Type: BLOOD SPECIMENOrdering Facility: [facility] Address:[address] [place], [place] [address]Performed By: #### TSCR ####CC MAIN BLOOD BANKCLIA [id number] [place] [address] [place] AMERICARh Nom (Bld)PositiveNormalCOhioHealth Mansfield Hospital on above: Order Comment: Specimen Type: BLOOD SPECIMENOrdering Facility: [facility] Address:[address] [place], [place] [address]Performed By: #### TSCR ####CC MAIN BLOOD BANKCLIA [id number] [place] [address] [place] AMERICATYPE AND SCREEN OSAKXFFZZR54/13/2023 23:59 NormalCleveland Clinic ClevelandComment on above:Order Comment: Specimen Type: BLOOD SPECIMENOrdering Facility: [facility] Address:[address] [place] [address]Performed By: #### TSCR ####CC [facility] BANKCLIA [id number] STATES OF AMERICAaPTT PPPon 48-04-3745vMUX Coag (PPP) [Time]28.7 jCfundi87.0-32.4CBlanchard Valley Health System Blanchard Valley HospitalComtrinity health oakland hospital on above:Order Comment: Specimen Type: BLOOD SPECIMENOrdering Facility: [facility] Address:[address] [place] [address]Performed By: #### 61449-9, 68999-1 ####[facility] [id number] [address] STATES AMERICACHEMISTRYOrdered By: SYSTEM SYSTEM on 89-34-3528Goisq gap [Moles/Vol]13 mmol/LNormal6 - 16 mEq/LFTMC RemisolCalcium [Mass/Vol]8.9 mg/dLNormal8.9 - 11.1 mg/dLFTMC RemisolChloride [Moles/Vol]105 mmol/ERdtvze286 - 111 mmol/LFTMC RemisolCO2 [Moles/Vol]24 mmol/KKxoxnl13 - 31 mmol/LFTMC Remisol Creatinine [Mass/Vol]0.9 mg/dLNormal0.5 - 1.3 mg/dLFT RemisolGFR/1.73 sq M.predicted among non-blacks MDRD (S/P/Bld) [Vol rate/Area]88 mL/min/1.73 m2 Normal>=59mL/min/1.73 m2[facility] Chem SGlucose [Mass/Vol]154 mg/vGVidnzf87 - 199 mg/dLFTMC RemisolPotassium [Moles/Vol]4.0 mmol/LNormal3.5 - 5.3 mmol/LFTMC RemisolSodium [Moles/Vol]138 mmol/BYgfgzx827 - 145 mmol/LFTMC RemisolUrea nitrogen [Mass/Vol]18 mg/dLNormal5 - 21 mg/dLFTMC RemisolUrea nitrogen/Creatinine [Mass ratio]20 mg/unIxiklj29 - 20FTMC RemisolCOAGULATION Ordered By: Jordan Harp on 06-42-2492lFLI Coag (PPP) [Time]31.1 sYxslmy90.1 - 36.5 second(s)[facility] Auto CoagINR Coag (PPP) [Relative time]1.2 {INR}Invalid Interpretation CodeFTMC Auto CoagPT Coag (PPP) [Time]12.8 sHigh9.4 - 12.5 second(s)[facility] Auto CoagHEMATOLOGYOrdered By: [email or web address] SYSTEM on 08-26-2022 Basophils/100 WBC (Bld)0.5 %Normal0.0 - 2.0 %[facility] HemeAutoSSBasophils/Leukocytes Auto (Bld) [Pure # fraction]0.1 E9/LNormal0.0 - 0.2 E9/LFTMC HemeAutoSS Eosinophils/100 WBC (Bld)0.9 %Normal0.0 - 8.0 %[facility] HemeAutoSS Eosinophils/Leukocytes Auto (Bld) [Pure # fraction]0.1 E9/LNormal0.0 - 0.5 E9/L [facility] HemeAutoSSLymphocytes/100 WBC (Bld)6.1 %Low14.0 - 50.0 %[facility] HemeAutoSS Lymphocytes/Leukocytes Auto (Bld) [Pure # fraction]0.9 E9/LLow1.0 - 4.0 E9/LFTMC HemeAutoSSMonocytes/100 WBC (Bld)4.9 %Normal4.0 - 14.0 %[facility] HemeAutoSS Monocytes/Leukocytes Auto (Bld) [Pure # fraction]0.8 E9/LNormal0.2 - 1.0 E9/L [facility] HemeAutoSSNeutrophils/100 WBC (Bld)87.6 %High36.0 - 75.0 %[facility] HemeAutoSS Neutrophils/Leukocytes Auto (Bld) [Pure # fraction]13.5 E9/LHigh2.0 - 7.5 E9/L [facility] HemeAutoSSHEMATOLOGYOrdered By: Jani Hardy on 54-87-6814Hmhbjkazzqn distribution width (RBC) [Ratio]13.4 %Ixgekk62.9 - 14.2 %[facility] HemeAutoSS Hematocrit (Bld) [Volume fraction]40.9 %Ajunsr75.7 - 49.0 %[facility] HemeAutoSS Hemoglobin (Bld) [Mass/Vol]14.0 g/zUXcxxsp23.5 - 17.5 gm/dLFT HemeAutoSSMCH (RBC) [Entitic mass]31.3 mgXyqduw94.0 - 34.0 pgFTM HemeAutoSSMCHC (RBC) [Mass/Vol]34.1 g/gUOyprxd92.4 - 36.0 gm/dLFTMC HemeAutoSSMCV (RBC) [Entitic vol] 91.9 wLDmhcwh11.0 - 100.0 fLFT HemeAutoSSPlatelet mean volume (Bld) [Entitic vol]9.6 fLNormal6.4 - 10.8 fLFT HemeAutoSSPlatelets (Bld) [#/Vol]194.0 E9/L Llvocl383.0 - 500.0 E9/LFTMC HemeAutoSSRBC (Bld) [#/Vol]4.4 E12/LNormal4.3 - 5.9 E12/LFTMC HemeAutoSSWBC corrected for nucl RBC Auto (Bld) [#/Vol]15.5 E9/LHigh 4.0 - 11.0 E9/LFTMC HemeAutoSSLaboratory - Microbiology and Antimicrobial susceptibilityOrdered By: Jaye Bishop on 17-29-1005Gooygqgh identified Cx Nom (U) No growth to dateFulton County Health CenterURINALYSISOrdered By: Jordan Harp on 35-75-7235Livpzxba LM Ql (Urine sed)1+ /HPFInvalid Interpretation Code Trace/HPFFT UA Auto SSBilirubin Ql (U)Negative (08/26/22 6:58 PM)NormalNegativeCOMANCHE [facility] UA Auto SSClarity (U)Cloudy *ABN* (08/26/22 6:58 PM)Invalid Interpretation CodeClearFTM UA Auto SSColor (U)Red *ABN* (08/26/22 6:58 PM)Invalid Interpretation CodeYellowFT UA Auto SSEpithelial cells.squamous LM.HPF (Urine sed) [#/Area]0-2 /HPFNormal0-2/HPFFT UA Auto SS Glucose Test strip (U) [Mass/Vol]Trace *ABN* (08/26/22 6:58 PM)Invalid Interpretation CodeNegativeCOMANCHE [facility] UA Auto SSHemoglobin Ql (U)3+ *ABN* (08/26/22 6:58 PM)Invalid Interpretation CodeNegativeCOMANCHE [facility] UA Auto SSKetones (U) [Mass/Vol]1+ *ABN* (08/26/22 6:58 PM)Invalid Interpretation CodeNegativeCOMANCHE COUNTY [facility] UA Auto SS Wimer.plasma/Wimer.RBC (Bld) [Mass ratio]>75 /HPFInvalid Interpretation Code 0-3/HPFCOMANCHE COUNTY MEMORIAL HOSPITAL [facility] UA Auto SSMucus Ql (Urine sed)1+ (08/26/22 6:58 PM)NormalCOMANCHE COUNTY MEM[facility]IAL [facility]OSP[facility] UA Auto SSNitrite Ql (U)Positive *ABN* (08/26/22 6:58 PM)Invalid Interpretation CodeNegativeCOMANCHE COUNTY [facility] UA Auto SSpH (U)7.5 *NA* (08/26/22 6:58 PM)Invalid Interpretation Code5.0 - 9.0[facility] UA Auto SSProtein (U) [Mass/Vol]3+ *ABN* (08/26/22 6:58 PM)Invalid Interpretation CodeNegativeCOMANCHE COUNTY [facility]IAL [facility] UA Auto SSSpecific gravity (U) [Rel density]1.015 *NA* (08/26/22 6:58 PM)Invalid Interpretation Code1.005 - 1.030[facility] UA Auto SSUA Spec DescCatheter (08/26/22 6:58 PM)NormalCOMANCHE COUNTY MEMORIAL HOSPITAL [facility] UA Auto SSUrobilinogen Qn (U){Belem'U}/dLInvalid Interpretation Code0.0 - 1.0 EU/dLFT UA Auto SSWBC Auto Ql (U)2+ *ABN* (08/26/22 6:58 PM)Invalid Interpretation CodeNegativeCOMANCHE [facility] UA Auto SSWBC LM.HPF (Urine sed) [#/Area]16-25 /HPFInvalid Interpretation Code0-5/HPFCOMANCHE COUNTY MEMORIAL HOSP[facility] UA Auto SS Basophils Auto (Bld) [#/Vol]Ordered By: Steven Zamora on 80-14-0985Vgistadrm (Bld) [#/Vol]0.0 10*3/uL0.0-0.2FSuburban Community Hospital & Brentwood HospitalBasophils/100 WBC Auto (Bld)Ordered By: Steven Zamora on 68-20-7210Zrzbfxbct/100 WBC (Bld)0.3 %.[facility] Southeast OhioCalcium [Mass/volume] in Serum or PlasmaOrdered By: Steven Zamora on 72-82-7494Ononedi [Mass/Vol]9.0 mg/dL8.6-10.3FSuburban Community Hospital & Brentwood HospitalCarbon dioxide, total [Moles/volume] in Serum or PlasmaOrdered By: Steven Zamora on 22-89-8034LF5 [Moles/Vol]26.0 mmol/L21.0-31.0[facility] Southeast OhioChloride [Moles/volume] in Serum or PlasmaOrdered By: Steven Zamora 57-20-5196Lxcyfpvb [Moles/Vol]105 mmol/N36-094YvsuamqwbSelect Medical Specialty Hospital - Southeast Ohio Creatinine [Mass/volume] in Serum or PlasmaOrdered By: Steven Zamora on 08-22-2022 Creatinine [Mass/Vol]0.79 mg/dL0.70-1.30[facility] Eosinophils Auto (Bld) [#/Vol]Ordered By: Steven Zamora on 47-80-0890Yijrfligryq (Bld) [#/Vol]0.1 10*3/uL0.0-0.45[facility] Southeast OhioEosinophils/100 WBC Auto (Bld)Ordered By: Steven Zamora on 19-25-6917Yafdpnpnwmg/100 WBC (Bld)1.6 % .[facility] - Southeast OhioErythrocyte distribution width Auto (RBC) [Ratio]Ordered By: Steven Zamora on 34-58-5885Qzfpqozbtyo distribution width (RBC) [Ratio]13.7 %12.0-14.8[facility] OhioGlucose [Mass/volume] in Serum or PlasmaOrdered By: Steven Zamora on 03-00-0009Shfjgfb [Mass/Vol]133 mg/dL 70-100[facility] Southeast OhioComment on above:ADA recommended reference rangeRandom Glucose Reference Range is dependent on time and content of last meal. Glucose of more than 200 mg/dL in a nonstressed, ambulatory subject supports the diagnosisof Diabetes Mellitus.Hematocrit Auto (Bld) [Volume fraction]Ordered By: Steven Zamora on 58-79-6577Hzfjxymvdg (Bld) [Volume fraction] 41.1 %38.8-50.0[facility] Southeast OhioHemoglobin [Mass/volume] in BloodOrdered By: Steven Zamora on 56-05-3379Zipdtpthle (Bld) [Mass/Vol]13.9 g/dL 13.0-17.0[facility] Southeast OhioLeukocytes [#/volume] corrected for nucleated erythrocytes in Blood by Automated counOrdered By: Steven Zamora on 60-83-7154KVW corrected for nucl RBC Auto (Bld) [#/Vol]8.8 10*3/uL4.1-10.5 [facility] Southeast OhioLymphocytes Auto (Bld) [#/Vol]Ordered By: Steven Zamora on 01-17-3667Bbyjbjeugnd (Bld) [#/Vol]1.4 10*3/uL1.00-4.8[facility] Southeast OhioLymphocytes/100 WBC Auto (Bld)Ordered By: Steven Zamora on 05-74-8067Vagammnfaxh/100 WBC (Bld)15.9 %.[facility] HealthH Auto (RBC) [Entitic mass]Ordered By: Steven Zamora on 25-57-7020JVE (RBC) [Entitic mass]31.5 pg27.5-35.2FSuburban Community Hospital & Brentwood HospitalMCHC Auto (RBC) [Mass/Vol] Ordered By: Steven Zamora on 57-95-8443EJMC (RBC) [Mass/Vol]33.9 g/dL32.5-35.6 [facility] OhioMCV Auto (RBC) [Entitic vol]Ordered By: Steven Zamora on 59-69-3520NKR (RBC) [Entitic vol]92.8 fL83.5-101[facility] Southeast OhioMonocytes Auto (Bld) [#/Vol]Ordered By: Steven Zamora on 08-22-2022 Monocytes (Bld) [#/Vol]0.9 10*3/uL0.0-0.8[facility] Monocytes/100 WBC Auto (Bld)Ordered By: Steven Zamora on 97-84-3577Mglmwmuuj/100 WBC (Bld)9.7 %.[facility] - Southeast OhioNeutrophils Auto (Bld) [#/Vol] Ordered By: Steven Zamora on 91-89-1049Qvqjcmjjliw (Bld) [#/Vol]6.4 10*3/uL1.8-7.7 [facility] Southeast OhioNeutrophils/100 WBC Auto (Bld)Ordered By: Steven Zamora on 43-36-7182Yjcplafazba/100 WBC (Bld)72.5 %.[facility] OhioNo Panel InformationOrdered By: Steven Zamora on 95-50-2660Pfcxbtast GFR (CKD-EPI)> 60.0 mL/MinSelect Medical Specialty Hospital - Southeast OhioPharmacy Creatinine Clearance (Chem74.81[facility] OhioNo Panel Informationon .0\S\0.4Bjpail8.0-0.2MP-[facility] [address] DO Work Phone: Comment on above:PERFORMED BY:[facility] [place], [place] [id number] MEDICAL DIRECTORDREW REAL M.D.0.1\S\0.4Rvpiqw0-2.5MP-[facility] [address] DO Work Phone: [phone]\S\0.9above high threshold0.0-0.8MP-[facility] [address] DO Work Phone: [phone]\S\1.0Padfck0.00-4.8MP-[facility] [address] DO Work Phone: [phone]\S\6.6Vioxky0.8-7.7MP-[facility] [address] DO Work Phone: [phone]\S\0.3Normal.MP-[facility] [address] DO Work Phone: [phone]\S\1.6Normal.MP-[facility] [address] DO Work Phone: [phone]\S\9.7Normal.MP-[facility] 250 DO Work Phone: [phone]\S\15.9Normal.[facility] 250 DO Work Phone: [phone]\S\72.5Normal.MP-[facility] 250 DO Work Phone: [phone]\S\9.1Ncilcw9.6-10.1MP-[facility] 250 DO Work Phone: [phone]\S\105Ngkniz017-655LZ-[facility] 250 DO Work Phone: [phone]\S\13.6Sznlrm97.0-14.8MP-[facility] 250 DO Work Phone: [phone]\S\33.4Lcoail37.5-35.6MP-[facility] 250 DO Work Phone: [phone]\S\31.4Kktqmx20.5-35.2MP-[facility] 250 DO Work Phone: [phone]\S\92.6Ionxds07.6-110AT-[facility] 250 DO Work Phone: [phone]\S\41.0Swuupc79.8-50.0MP-[facility] 250 DO Work Phone: [phone]\S\13.5Ikxgti90.0-17.0MP-[facility] 250 DO Work Phone: [phone]\S\4.01Fxzzbm9.90-5.60MP-[facility] 250 DO Work Phone: [phone]\S\8.0Lfzowr3.1-10.5MP-[facility] 250 DO Work Phone: > 60.0NormalMP-[facility] 250 DO Work Phone: [phone]\S\10.1Dilmav0.0-15.0[facility] [facility] DO Work Phone: [phone]\S\74.81NormalMP-[facility] DO Work Phone: Comment on above:PERFORMED BY:[facility] [place]KE[place]CORE[place], [place] [phone] MEDICAL DIRECTORDREW REAL M.D.9.0\S\9.0Siygeu0.6-10.3MP-[facility] DO Work Phone: [phone]\S\26.9Bmbszd24.0-31.0MP-[facility] DO Work Phone: [phone]\S\837Xcsnie40-071EN-Lfxor [place] [facility] DO Work Phone: [phone]\S\3.5Uciiyh6.5-5.1MP-[facility] DO Work Phone: [phone]\S\706Rygqrd403-846GA-Vvuwg [place] [facility] DO Work Phone: [phone]\S\0.00Mvikhr7.70-1.30MP-[facility] DO Work Phone: [phone]\S\72Rkblwn7-95DX-Grlof [place] [facility] DO Work Phone: [phone]\S\133above high ugnyiovmv06-739EZ-Ojlzu [place] [facility] DO Work Phone: Comment on above:Random Glucose Reference Range is dependent on time and content of last meal. Glucose of more than 200 mg/dL in a nonstressed, ambulatory subject supports the diagnosis of Diabetes Mellitus. ADA recommended reference rangeNucleated erythrocytes [Presence] in Blood by Automated countOrdered By: Steven Zamora on 79-70-3882Axcmwmwfc RBC Auto Ql (Bld)0.1 /100{WBC}0-0.5FSuburban Community Hospital & Brentwood HospitalPlatelet mean volume Auto (Bld) [Entitic vol]Ordered By: Steven Zamora on 06-27-7354Inykrujv mean volume (Bld) [Entitic vol]9.6 fL6.6-10.1FSuburban Community Hospital & Brentwood HospitalPlatelets Auto (Bld) [#/Vol]Ordered By: Steven Zamora on 19-53-7624Pnggrnduw (Bld) [#/Vol]162 10*3/uL 150-450[facility] OhioPotassium [Moles/volume] in Serum or PlasmaOrdered By: Steven Zamora on 33-00-2672Tpkvbeptd [Moles/Vol]3.8 mmol/L3.5-5.1 [facility] OhioRBC Auto (Bld) [#/Vol]Ordered By: Steven Zamora on 92-94-8211ZPY (Bld) [#/Vol]4.43 10*6/uL3.90-5.60[facility] Medical Centererum or plasma anion gap determinationOrdered By: Steven Zamora on 08-22-2022 Anion gap [Moles/Vol]10.8 mmol/L6.0-15.0[facility] Medical Centerodium [Moles/volume] in Serum or PlasmaOrdered By: Steven Zamora on 15-54-2319Onymvu [Moles/Vol]138 mmol/Z438-700RoukiqsmmSelect Medical Specialty Hospital - Southeast OhioUrea nitrogen [Mass/volume] in Serum or PlasmaOrdered By: Steven Zamora on 46-97-5061Mdnc nitrogen [Mass/Vol]20 mg/dL7-25[facility] OhioWBC Auto (Bld) [#/Vol] Ordered By: Steven Zamora on 28-68-8436CFQ (Bld) [#/Vol]8.8 10*3/uL4.1-10.5FSuburban Community Hospital & Brentwood HospitalCholesterol [Mass/volume] in Serum or PlasmaOrdered By: Steven Zamora on 49-34-7353Znteavnjocu [Mass/Vol]132 mg/tB011-350MlzulqoznSelect Medical Specialty Hospital - Southeast OhioComment on above:Chol less than 200 mg/dl low riskChol 201-239 mg/dl borderline riskChol 240 mg/dl and greater high riskCholesterol in LDL Calc [Mass/Vol]Ordered By: Steven Zamora on 26-76-2978Fcxqiqncpbj in LDL [Mass/Vol]62 mg/dL0-100[facility] Southeast OhioComment on above:LDL ATP III CLASSIFICATIONLDL less than 100 mg/dL OptimalLDL 100-129 mg/dL Near or above udsknvsKAP030-205 mg/dL Borderline highLDL 160-189 mg/dL HighLDL greater than 189 mg/dL Very highCholesterol in VLDL Calc [Mass/Vol]Ordered By: Steven Zamora on 07-54-9908Rxeattejtse in VLDL [Mass/Vol]24 mg/dLSelect Medical Specialty Hospital - Southeast OhioGlucose Glucometer (BldC) [Mass/Vol]Ordered By: Steven Zamora on 08-21-2022 Glucose [Mass/Vol]121 mg/dLSelect Medical Specialty Hospital - Southeast OhioComment on above: Random Glucose Reference Range is dependent on time and content of last meal. Glucose of more than 200 mg/dL in a nonstressed, ambulatory subject supports the diagnosis of Diabetes Mellitus.Laboratory - Chemistry and Chemistry - challenge on 63-86-1434Varhsqqsxry [Mass/Vol]132\S\132below low aclylwmsi439-872SA-Gsvnf [place] [facility] DO Work Phone: Comment on above:Chol less than 200 mg/dl low risk Chol 201-239 mg/dl borderline risk Chol 240 mg/dl and greater high risk Cholesterol in LDL [Mass/Vol]62\S\19Bkmgai3-012HJ-Clonr [place] [facility] DO Work Phone: Comment on above:LDL ATP III CLASSIFICATION LDL less than 100 mg/dL Optimal LDL 100-129 mg/dL Near or above optimal LDL 130-159 mg/dL Borderline high LDL 160-189 mg/dL High LDL greater than 189 mg/dL Very highNo Panel InformationOrdered By: Steven Zamora on 74-48-1560Cyhtjsp Glucose CommentGlu2: cleaned meterSelect Medical Specialty Hospital - Southeast OhioNo Panel Informationon 08-21-2022 Glu2: Cleaned MeterNormalMP-[facility] DO Work Phone: Comment on above:PERFORMED BY:[facility] [place] [address], [place] [phone] MEDICAL DIRECTORDREW REAL M.D.121\S\121NormalMP-[facility] DO Work Phone: Comment on above:Random Glucose Reference Range is dependent on time and content of last meal. Glucose of more than 200 mg/dL in a nonstressed, ambulatory subject supports the diagnosis of Diabetes Mellitus. Glu2: Cleaned MeterNormwaMP-[facility] DO Work Phone: Comment on above:PERFORMED BY:[facility] [place] [address] [place], [place] [phone] MEDICAL DIRECTORDREW REAL M.D.137\S\137NormalMP-[facility] DO Work Phone: Comment on above:Random Glucose Reference Range is dependent on time and content of last meal. Glucose of more than 200 mg/dL in a nonstressed, ambulatory subject supports the diagnosis of Diabetes Mellitus. 0.0\S\0.8Xfibvm7-1.5MP-[facility] DO Work Phone: Comment on above:PERFORMED BY:[facility] [place] [address], [place] [phone] MEDICAL DIRECTORDREW REAL M.D.0.8\S\0.6Gepsau2.0-0.8MP-[facility] DO Work Phone: [phone]\S\1.8Tcycrv7.00-4.8MP-[facility] DO Work Phone: [phone]\S\11.6Kiljcj0.0-15.0MP-[facility] DO Work Phone: [phone]\S\0.2Normal.-[facility] DO Work Phone: [phone]\S\0.1Normal.-[facility] DO Work Phone: [phone]\S\6.1Normal.-[facility] DO Work Phone: [phone]\S\8.2Normal.-[facility] DO Work Phone: [phone]\S\85.4Normal.-[facility] DO Work Phone: [phone]\S\9.4Ncwxvl5.6-10.1MP-[facility] DO Work Phone: [phone]\S\392Aqeypu900-505XO-Tqcyk [place] [facility] DO Work Phone: [phone]\S\13.5Qgmoqq36.0-14.8MP-[facility] DO Work Phone: [phone]\S\34.9Zpmaff69.5-35.6MP-[facility] DO Work Phone: [phone]\S\31.1Xekdjo35.5-35.2MP-[facility] DO Work Phone: [phone]\S\91.1Ozwpzp58.3-552ZR-Ydulk [place] [facility] DO Work Phone: [phone]\S\42.0Xidtlq22.8-50.0MP-[facility] DO Work Phone: [phone]\S\14.9Owxknw17.0-17.0MP-[facility] DO Work Phone: [phone]\S\4.45Ovsjtr1.90-5.60MP-[facility] DO Work Phone: [phone]\S\13.6above high threshold4.1-10.5MP-[facility] DO Work Phone: > 60.0NormalMP-[facility] DO Work Phone: [phone]\S\74.81NormalMP-[facility] DO Work Phone: [phone]\S\9.2Ugmklg9.6-10.3MP-[facility] DO Work Phone: [phone]\S\27.6Axurzo03.0-31.0MP-[facility] DO Work Phone: [phone]\S\144Xnheso32-503MF-Lfgjn [place] [facility] DO Work Phone: [phone]\S\3.3Qlwwkz0.5-5.1MP-[facility] DO Work Phone: [phone]\S\589Zgbozj567-859XK-Apbxw [place] [facility] DO Work Phone: [phone]\S\0.76Fjpyfy3.70-1.30MP-[facility] DO Work Phone: [phone]\S\44Yvqume2-33SN-Sckma [place] [facility] DO Work Phone: [phone]\S\162above high ysscjpwel19-144NC-Yhqng [place] [facility] DO Work Phone: Comment on above:Random Glucose Reference Range is dependent on time and content of last meal. Glucose of more than 200 mg/dL in a nonstressed, ambulatory subject supports the diagnosis of Diabetes Mellitus. ADA recommended reference range2.9\S\2.9Normal<5.0MP-[facility] DO Work Phone: Comment on above:PERFORMED BY:[facility] [place] [address] [place] [phone] MEDICAL DIRECTORDREW REAL M.D.24\S\24NormalMP-[facility] DO Work Phone: [phone]\S\891Mukujo4-232LX-Ctxrl [place] [facility] DO Work Phone: Comment on above:TRIG ATP III CLASSIFICATION TRIG less than 150 mg/dL Normal TRIG 150-199 mg/dL Borderline high ZSWX131-306 mg/dL High TRIG greater than 500 mg/dL Very high Standard traceable to the Center for Disease Conrtrol and Prevention (CDC) test method.45\S\00Aeweeg66-75BW-Gnyvo [place] [facility] DO Work Phone: Comment on above:HDL CHOL ATP-III CLASSIFICATION Cardiovascular Risk HDL > or equal to 60 mg/dL LOW HDL < 40 mg/dL HIGH 31172.9\S\12075.9Critically high0.0-20.0MP-[facility] DO Work Phone: Comment on above:Critical Result : Called to and read back by: MARC BUSTILLOS at: 08/21/2022 06:30:29 by:[id number] BY:[place] [address] [place], [place] [phone] MEDICAL CARMELO REAL M.D.63575.9\S\15634.9Critically high0.0-20.0MP-[facility] DO Work Phone: Comment on above:Critical Result : Called to and read back by: RIDGE WATERS at: 08/21/2022 04:23:36 by:[id number] BY:[place] [address] [place], [place] [phone] MEDICAL DIRECTORDREW REAL M.D.84060.3\S\01047.3Critically high0.0-20.0-[facility] DO Work Phone: Comment on above:Critical Result : Called to and read back by: SALLY BUSTILLOS at: 08/21/2022 00:52:26 by:[id number] BY:[facility] [place] [address] BEASLEYUSKYSA[place], [place] [phone] MEDICAL DIRECTORDREW REAL M.D.Serum or plasma high density lipoprotein (HDL) cholesterol measurementOrdered By: Steven Zamora on 50-86-7576Iuohscxqzvl in HDL [Mass/Vol]45 mg/sE37-51DwnuezxtiSelect Medical Specialty Hospital - Southeast OhioComment on above:HDL CHOL ATP-III CLASSIFICATION Cardiovascular RiskHDL > or equal to 60 mg/dL LOWHDL < 40 mg/dL HIGHSerum or plasma total cholesterol/high density lipoprotein (HDL) cholesterol mass ratOrdered By: tSeven Zamora on 08-21-2022 Cholesterol.total/Cholesterol in HDL [Mass ratio]2.9 {ratio}<5.0[facility] OhioTriglyceride [Mass/volume] in Serum or PlasmaOrdered By: Steven Zamora on 50-60-4627Pwyfrqmoblxj [Mass/Vol]124 mg/dL0-149[facility] Southeast OhioComment on above:TRIG ATP III CLASSIFICATIONTRIG less than 150 mg/dL NormalTRIG 150-199 mg/dL Borderline highTRIG 200-500 mg/dL High TRIG greater than 500 mg/dL Very highStandard traceable to the Center for Disease Co nrtrol and Prevention (CDC) test method.Troponin I.cardiac [Mass/volume] in Serum or Plasma by Detection limit <= 0.01 ng/Ordered By: Steven Zamora on 64-14-2907Iitddqqy I.cardiac DL <= 0.01 ng/mL [Mass/Vol]88302.9 pg/mL0.0-20.0 [facility] Southeast OhioComment on above:Critical Result : Called to and read back by: MARC BUSTILLOS at: 08/21/2022 06:30:29 by:[id number] partial thromboplastin time (aPTT) in platelet poor plasma by coagulation a Ordered By: Cirilo Wise on 52-61-5679vTOU Coag (PPP) [Time]25.1 s25.1-36.5 [facility] OhioBasophils Auto (Bld) [#/Vol]Ordered By: Cirilo Wise on 69-09-5772Guljbzuza (Bld) [#/Vol]0.1 10*3/uL0.0-0.2FSuburban Community Hospital & Brentwood HospitalBasophils/100 WBC Auto (Bld)Ordered By: Cirilo Wise on 08-20-2022 Basophils/100 WBC (Bld)0.5 %.[facility] OhioCalcium [Mass/volume] in Serum or PlasmaOrdered By: Cirilo Wise on 24-87-8575Dkrsdxq [Mass/Vol]9.4 mg/dL8.6-10.3FSuburban Community Hospital & Brentwood HospitalCarbon dioxide, total [Moles/volume] in Serum or PlasmaOrdered By: Cirilo Wise on 43-66-3189RE3 [Moles/Vol]24.3 mmol/L21.0-31.0[facility] OhioChloride [Moles/volume] in Serum or PlasmaOrdered By: Cirilo Wise on 89-13-9670Hbmfntun [Moles/Vol]105 mmol/Y61-011DsksntvsgSelect Medical Specialty Hospital - Southeast OhioCreatine kinase [Enzymatic activity/volume] in Serum or PlasmaOrdered By: Cirilo Wise on 16-91-1189VX [Catalytic activity/Vol]115 U/S36-922XdijophfqSelect Medical Specialty Hospital - Southeast OhioCreatinine [Mass/volume] in Serum or PlasmaOrdered By: Cirilo Wise on 36-90-3861Rfyjnrzlfw [Mass/Vol]0.92 mg/dL0.70-1.30[facility] OhioEosinophils Auto (Bld) [#/Vol]Ordered By: Cirilo Wise on 08-20-2022 Eosinophils (Bld) [#/Vol]0.1 10*3/uL0.0-0.45[facility] [place] Eosinophils/100 WBC Auto (Bld)Ordered By: Cirilo Wise on 08-20-2022 Eosinophils/100 WBC (Bld)1.3 %.[facility] Southeast OhioErythrocyte distribution width Auto (RBC) [Ratio]Ordered By: Cirilo Wise on 08-20-2022 Erythrocyte distribution width (RBC) [Ratio]13.6 %12.0-14.8[facility] OhioGlucose [Mass/volume] in Serum or PlasmaOrdered By: Cirilo Wise on 71-91-6521Odhetmd [Mass/Vol]172 mg/vO69-345ZavbxjxbnSelect Medical Specialty Hospital [facility] [place] Comment on above:ADA recommended reference rangeRandom Glucose Reference Range is dependent on time and content of last meal. Glucose of more than 200 mg/dL in a nonstressed, ambulatory subject supports the diagnosisof Diabetes Mellitus. Hematocrit Auto (Bld) [Volume fraction]Ordered By: Cirilo Wise on 08-20-2022 Hematocrit (Bld) [Volume fraction]44.0 %38.8-50.0[facility] OhioHemoglobin [Mass/volume] in BloodOrdered By: Cirilo Wise on 08-20-2022 Hemoglobin (Bld) [Mass/Vol]15.1 g/dL13.0-17.0[facility] [place] Laboratory - CoagulationOrdered By: Cirilo Wise on 48-25-8749US Coag (PPP) [Time]11.4 s9.0-12.9[facility] OhioLeukocytes [#/volume] corrected for nucleated erythrocytes in Blood by Automated counOrdered By: Cirilo Wise on 60-33-6029OAY corrected for nucl RBC Auto (Bld) [#/Vol]10.7 10*3/uL4.1-10.5FSuburban Community Hospital & Brentwood HospitalLymphocytes Auto (Bld) [#/Vol] Ordered By: Cirilo Wise on 25-40-0003Akkpbtndfxa (Bld) [#/Vol]2.8 10*3/uL 1.00-4.8[facility] OhioLymphocytes/100 WBC Auto (Bld)Ordered By: Cirilo Wise on 77-79-1296Ebizvyviydn/100 WBC (Bld)26.2 %.[facility] OhioMCH Auto (RBC) [Entitic mass]Ordered By: Cirilo Wise on 46-84-4486DRP (RBC) [Entitic mass]32.1 pg27.5-35.2FSuburban Community Hospital & Brentwood HospitalMCHC Auto (RBC) [Mass/Vol]Ordered By: Cirilo Wies on 41-71-2337ZOHK (RBC) [Mass/Vol]34.4 g/dL32.5-35.6FSuburban Community Hospital & Brentwood HospitalMCV Auto (RBC) [Entitic vol]Ordered By: Cirilo Wise on 14-25-9188ADH (RBC) [Entitic vol]93.4 fL83.5-101[facility] OhioMonocyte distribution width [Entitic volume] in Blood by AutomatedOrdered By: Cirilo Wise on 33-01-4026Vnbqgggr distribution width Auto (Bld) [Entitic vol]16.35 %0.00-20.00[facility] OhioMonocytes Auto (Bld) [#/Vol]Ordered By: Cirlio Wise on 08-20-2022 Monocytes (Bld) [#/Vol]0.9 10*3/uL0.0-0.8[facility] [place] Monocytes/100 WBC Auto (Bld)Ordered By: Cirilo Wise on 57-83-7777Oxkwlyibe/100 WBC (Bld)7.9 %.[facility] OhioNatriuretic peptide B [Mass/Vol] Ordered By: Cirilo Wise on 71-94-7976Yrrnfvdyyvv peptide B (Bld) [Mass/Vol]24.0 pg/mL5-100[facility] OhioNeutrophils Auto (Bld) [#/Vol] Ordered By: Cirilo Wise on 07-61-5747Dhufhtvlvdr (Bld) [#/Vol]6.9 10*3/uL 1.8-7.7FSuburban Community Hospital & Brentwood HospitalNeutrophils/100 WBC Auto (Bld)Ordered By: Cirilo Wise on 22-03-9328Maicccewiao/100 WBC (Bld)64.1 %.[facility] OhioNo Panel Informationon 56-65-68687266.3\S\2529.3Critically high 0.0-20.0MP-[facility] DO Work Phone: Comment on above:Critical Result : Called to and read back by: ARY BUSTILLOS at: 08/20/2022 19:45:52 by:[id number] BY:[facility] [place], [place] [phone] MEDICAL DIRECTORDREW REAL M.D.No Panel InformationOrdered By: Cirilo Wise on 63-51-5789Aektahmsc GFR (CKD-EPI)> 60.0 mL/MinSelect Medical Specialty Hospital - Southeast OhioPharmacy Creatinine Clearance (Chem65.05 [facility] OhioNucleated erythrocytes [Presence] in Blood by Automated countOrdered By: Cirilo Wise on 17-88-3193Dlhrdmmue RBC Auto Ql (Bld) 0.1 /100{WBC}0-0.5FSuburban Community Hospital & Brentwood HospitalPlatelet mean volume Auto (Bld) [Entitic vol]Ordered By: Cirilo Wise on 35-69-2909Zlfwoiga mean volume (Bld) [Entitic vol]9.7 fL6.6-10.1FSuburban Community Hospital & Brentwood HospitalPlatelet poor plasma international normalized ratio (INR) by coagulation assay (relatOrdered By: Cirilo Wise on 69-11-8028DHV Coag (PPP) [Relative time]1.0 {INR}[facility] OhioComment on above:INR Therapeutic Range A) Pre- and Peroperative OAT started two weeks before surgery. NOT HIP SURGERY: 1.5 - 2.5 HIP SURGERY: 2 - 3B) Primary and secondary prevention of venous THROMBOSIS: 2 - 3C) Active venous thrombosis, pulmonary embolismand prevention of recurrent venous thrombosis: 2 - 3D) Prevention of arterial thromboembolismincluding patients with mechanical heart valves: 3 - 4.5Platelets Auto (Bld) [#/Vol] Ordered By: Cirilo Wise on 66-89-6913Tmjwsfemx (Bld) [#/Vol]215 10*3/lM621-945 [facility] OhioPotassium [Moles/volume] in Serum or Plasma Ordered By: Cirilo Wise on 23-05-1865Purajssrw [Moles/Vol]3.4 mmol/L3.5-5.1 [facility] OhioRBC Auto (Bld) [#/Vol]Ordered By: Cirilo Wise on 15-76-8215WZV (Bld) [#/Vol]4.71 10*6/uL3.90-5.60[facility] Medical Centererum or plasma anion gap determinationOrdered By: Cirilo Wise on 13-54-8830Zegim gap [Moles/Vol]14.1 mmol/L6.0-15.0[facility] Medical Centerodium [Moles/volume] in Serum or PlasmaOrdered By: Cirilo Wise on 64-13-7473Kowmdx [Moles/Vol]140 mmol/T103-334BgfeexlfkSelect Medical Specialty Hospital - [facility] [place] Troponin I.cardiac [Mass/volume] in Serum or Plasma by Detection limit <= 0.01 ng/Ordered By: Cirilo Wise on 13-82-7564Amnsnazw I.cardiac DL <= 0.01 ng/mL [Mass/Vol]366.3 pg/mL0.0-20.0[facility] Southeast OhioComment on above: Critical Result : Called to and read back by: SHANNON FERREIRA at: 08/20/2022 17:43:14 by:[id number] nitrogen [Mass/volume] in Serum or PlasmaOrdered By: Cirilo Wise on 20-52-9544Ryju nitrogen [Mass/Vol]15 mg/dL7-25[facility] OhioWBC Auto (Bld) [#/Vol]Ordered By: Cirilo Wise on 95-07-3880VAB (Bld) [#/Vol]10.7 10*3/uL4.1-10.5FSuburban Community Hospital & Brentwood HospitalOffice Visit (Cardiology)on 17-20-2185Hljaee-up visitDiagnoses/Problems Assessed Dizziness (780.4) (R42) Abnormal stress test [...] lose weight.; Status:Complete - Retrospective Authorization; Done: [id number] SocHx: Former smoker Tobacco Use Screening; Status:Complete; Done: 14Cqj9896 Patient Instructions Please bring all medicines, vitamins, [...] in 1 year. Lab as scheduled with OR Chief Complaint OLAF BRIONES is being seen [...] due to transient hypotension. Patientdenies any recurrence 2. Borderline abnormal stress test. I suspect his perfusion imaging finding are related to attenuation. The patient describe functional class I. He denies any chest pain and he is completely asymptomatic. He was started recently on low- dose beta-reynaldo 3. Hypertension controlled on home recording [...] negative for complaint. Vitals Vital Signs Recorded: 40Saw9805 10:52AMRecorded: 74Qzd6955 10:34AM Nnwqerln064923, LUE, Sitting Ktjimtacz0163, LUE, Sitting Heart Rate72, L Radial Height5 ft 6 in Pvxuqi994 lb BMI Appguctjvb71.73 kg/m2 BSA Calculated1.9 Tobacco Useb) No PHQ-2 #1. Over the last 2 weeks have you felt down, depressed (more content not included)...NormalUH TouchworksXR KUB 1 VIEWon 50-53-9307FG KUB 1 VIEW EXAMINATION: XR KUB 1 [...] Electronically authenticated by: AMNA BALDWIN Date: 2021-10-26 10:33[facility]ice [facility] (Cardiology)on 41-69-8094Eiltfs-up visit Diagnoses/Problems Assessed Dizziness (780.4) (R42) Hyperlipemia [...] Weight Tips; Status:Complete - Retrospective Authorization; Done: 43Vgq6934 Some eating tips that can help you lose weight.; Status:Complete - Retrospective Authorization; Done: [id number] SocHx: Former smoker Tobacco Use Screening; Status:Complete; Done: 57Eab2795 Tobacco Use Screening; Status:Complete; Done: 03Fir6619 Patient Instructions Please bring all medicines, vitamins, and herbal supplements with you when you come to the office. Prescriptions will not be filled unless you are compliant with your follow up appointments or have a follow up appointment scheduled as per instruction of your physician. Refills should be requested at the time of your visit. 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 He clearly appears to have whitecoat hypertension affect. His blood pressure tends to run a little higher in the office. He report blood pressures under excellentcontrol at home. He denies any cardiac symptoms [...] Recorded: 18Sep2021 10:16AM Heart Rate64, L Radial Hmfjuckp163, (more content not included)...NormalUH TouchworksTobacco Screening. on 47-38-1229Adqc risk assessmenta) No falls within the last yearW[facility] DO Work Phone: Tobacco use status CPHSb) [facility] [employer] DO Work Phone: IO EKG Electrocardiogram- 12 Leadon 49-10-7859TY EKG Electrocardiogram- 12 LeadSee Scanned DocumentWalla Walla General Hospital Moped DO Work Phone: Tobacco Screening.on 87-48-1179Guyx risk assessmenta) No falls within the last yearW[facility] Walla [facility] Hospital M[facility] DO Work Phone: Tobacco use status CPHSb) [facility] [employer] DO Work Phone: Vital Signs Date TimeVital SignValuePerforming UraejdkwyMyaqjadm72-10-1879 14:08-0400Body puvhio875.72 Renetta Peguero MD Work Phone: [facility] [place]05-08-2025 14:08-0400 Body mass index (BMI) [Ratio]27.5 kg/g1KstpzDav Peguero MD Work Phone: [facility] [place]05-08-2025 14:08-0400 Body unyzmy76.1 kgDav Peguero MD Work Phone: [phone] [place], [place] 3768705-08-2025 14:08-0400 Diastolic blood jxonotgm46 mm[Hg]Dav Peguero MD Work Phone: [phone] [place], [place] 3768705-08-2025 14:08-0400 Heart rate53 /Noah Peguero MD Work Phone: [phone] [place], [place] 3768705-08-2025 14:08-0400 Respiratory rate18 /Noah Peguero MD Work Phone: [phone]05-08-2025 14:08-0400 SaO2% (BldA) [Mass fraction]98 %Dav Peguero MD Work Phone: [phone] [place], [place] 3768705-08-2025 14:08-0400 Systolic blood klwhyqkc810 mm[Hg]Dav Peguero MD Work Phone: [phone] [place], [place] 3768703-18-2025 12:46-0400 Body pmmpya892.26 cmSelect Medical Specialty Hospital - [facility] [place]03-18-2025 12:46-0400Body mass index (BMI) [Ratio]26.2 kg/b6XwfqerdouSelect [facility] [place]03-18-2025 12:46-0400Body fwmpbdjucoe91.3 [degF][facility] [place]03-18-2025 12:46-0400Body clescn89.73 kgSelect [facility] [place]03-18-2025 12:46-0400Diastolic blood mm[Hg][facility] 05-05-2024 12:46-0400Heart rate66 /[facility] 05-05-2024 12:46-0400Respiratory rate16 /[facility] 05-05-2024 12:46-2098GmO3% (BldA) [Mass fraction]96 %[facility] [place]03-18-2025 12:46-0400Systolic blood ujwuvgsh096 mm[Hg][facility] [place]02-13-2025 13:08-0500Body wvriks431.3 Renetta Peguero MD Work Phone: [facility]ullivanVmutndxcjl60-54-3014 13:08-0500Body mass index (BMI) [Ratio]27.02 kg/f5AcjifDav Peguero MD Work Phone: [facility]SullivanDqvkfqiqxb99-41-2923 13:08-0500Body jeojxb56.01 kgDav Peguero MD Work Phone: [facility]ullivanPbdfllyaps46-84-3332 13:08-0500Diastolic blood zlamephf78 mm[Hg]Dav Peguero MD Work Phone: [facility]SullivanVafcvcnscw15-84-2078 13:08-0500Heart rate72 /min Dav Peguero MD Work Phone: [facility]SullivanKabdiqrnrr23-72-9720 13:08-1478FiJ0% (BldA) [Mass fraction]97 %Dav Peguero MD Work Phone: [facility]SullivanAayfdwgytc13-34-5521 13:08-0500Systolic blood dyhhxmof112 mm[Hg]Dav Peguero MD Work Phone: [facility]SullivanZgwfblpbgq69-91-1571 08:54-0500Blood Pressure LocationPatrick IVORY [facility]02-07-2025 08:54-0500Body avvbsutgnfv46.6 [degF]Shannasuresh IVORY [facility]02-07-2025 08:54-0500Diastolic blood fphfnzjo39 mm[Hg]Shannasuresh IVORY [facility]02-07-2025 08:54-0500Heart rate68 /minPatrick IVORY [facility]02-07-2025 08:54-0500Respiratory rate16 /minPatrick IVORY [facility]02-07-2025 08:54-0500Systolic blood ubxbckee186 mm[Hg]Shanna IVORY [facility]01-24-2025 11:12-0500Body ocwvbm686.7 cmAshutosh Ling MD Work Phone: 1(020)[address]01-24-2025 11:12-0500 Body mass index (BMI) [Ratio]28.43 kg/p2ItsjcbnAshutosh Ling MD Work Phone: 1(006)[address]01-24-2025 11:12-0500 Body udyoda20.82 kgAshutosh Ling MD Work Phone: 1(620)[address]01-24-2025 11:12-0500 Diastolic blood yelcceqa87 mm[Hg]Ashutosh Ling MD Work Phone: 1(023)[address]01-24-2025 11:12-0500 Heart rate56 /minAshutosh Ling MD Work Phone: 1(226)[address]01-24-2025 11:12-0500 Systolic blood jzejqehu531 mm[Hg]Ashutosh Ling MD Work Phone: 1(583)[address]10-11-2024 09:02-0400 Blood Pressure LocationShanna IVORY [facility]10-11-2024 09:02-0400Body artbutdtqtv06.6 [degF]Shanna IVORY [facility]10-11-2024 09:02-0400Diastolic blood wkxapwkz15 mm[Hg]Shanna IVORY [facility]10-11-2024 09:02-0400Heart rate65 /minShanna IVORY [facility]10-11-2024 09:02-0400Respiratory rate16 /Alona IVORY [facility]10-11-2024 09:02-0400Systolic blood kxklykbr918 mm[Hg]Shanna IVORY [facility]05-08-2024 15:02-0400Body huddkd200.7 cmAshutosh Ling MD Work Phone: 1(750)[address]05-08-2024 15:02-0400 Body mass index (BMI) [Ratio]26.15 kg/e0JahvckrAshutosh Ling MD Work Phone: 1(662)[address]05-08-2024 15:02-0400 Body dfyqmu09.02 kgAshutosh Ling MD Work Phone: 1(470)[address]05-08-2024 15:02-0400 Diastolic blood tmxbuppo41 mm[Hg]Ashutosh Ling MD Work Phone: 1(697)[address]05-08-2024 15:02-0400 Heart rate60 /Komal Ling MD Work Phone: 1(183)[address]05-08-2024 15:02-0400 Systolic blood hduiclec645 mm[Hg]Ashutosh Ling MD Work Phone: 1(840)[address]11-22-2023 15:38-0500 Body gfhefz745.7 cmAshutosh Ling MD Work Phone: 1(444)[address]11-22-2023 15:38-0500 Body mass index (BMI) [Ratio]26.76 kg/u3DacjhthAshutosh Ling MD Work Phone: 1(907)[address]11-22-2023 15:38-0500 Body zesjuh93.83 kgMourhaf Traboulssi MD Work Phone: [facility]11-22-2023 15:38-0500 Diastolic blood mppxtolz61 mm[Hg]Ashutosh Ling MD Work Phone: [facility]11-22-2023 15:38-0500 Heart rate58 /Komal Ling MD Work Phone: [facility]11-22-2023 15:38-0500 Systolic blood nxnanxwv574 mm[Hg]Ashutosh Ling MD Work Phone: [facility]09-11-2023 11:35-0400 Body zaugsl118.72 cmPamelusama JuarezChen Other [employer] Other 09-11-2023 11:35-0400Body mass index (BMI) [Ratio] 26.64 kg/z2Fduwwx Chen Other [employer] Other 09-11-2023 11:35-0400Body xflcvvwtody26.2 [degF]Estella Chen Other [employer] Other 09-11-2023 11:35-0400Body trhtup63.47 kgEstella Siddiqui Other [employer] Other 09-11-2023 11:35-0400Diastolic blood skmzujcz97 mm[Hg] Estella Chen Other [employer] Other 09-11-2023 11:35-0400Respiratory rate18 /minEstella Siddiqui Other [employer] Other 09-11-2023 11:35-5115DjQ6% (BldA) [Mass fraction]98 % Estella Siddiqui Other nort [employer] Other 09-11-2023 11:35-0400Systolic blood kpbbipad636 mm[Hg] Estella Siddiqui Other [employer]Fair[employer] Other 07-19-2023 13:02-0400Body ugcjvy700.64 cmSkatie Hernandez Work Phone: [phone]-Tajfi [place] [employer] 250 DO Work Phone: 1(355) 493-185807-19-2023 13:02-0400Body mass index (BMI) [Ratio]27.6 kg/y4AespgiDaniel Hernandez Work Phone: mp507-5470DS-Ltvuh [place] [employer] 250 DO Work Phone: 1(407) 490-520407-19-2023 13:02-0400Body surface area Derived from formula1.87 m6Wmftcn E David Work Phone: mp293-1919QS-Scczl [place] [employer] 250 DO Work Phone: 1(626) 851-573907-19-2023 13:02-0400Body vzkrem92.57 kgDaniel Hernandez Work Phone: mp647-4926HE-Drcol [place] [employer] 250 DO Work Phone: 1(396) 985-910507-19-2023 13:02-0400Diastolic blood ipwcjcwj65 mm[Hg] Daniel Hernandez Work Phone: [phone]-Tduyp [place] [employer] 250 DO Work Phone: 1(863) 247-452807-19-2023 13:02-0400Heart rate68 /minSkatie Hernandez Work Phone: mp988-2827ZM-Suhfs [place] [employer] 250 DO Work Phone: 1(749) 105-685107-19-2023 13:02-0400Systolic blood noamczwd875 mm[Hg] Daniel Hernandez Work Phone: [phone]-Xrlga [place] [facility] DO Work Phone: 1(412) 749-825307-10-2023 03:30-0400Diastolic blood lrkegnum43 mm[Hg] [facility]07-10-2023 03:30-0400Heart rate74 /[facility]07-10-2023 03:30-0400Mean blood jhttwzab65 mm[Hg][facility]07-10-2023 03:30-0400Respiratory rate14 /[facility] 08-27-2022 03:30-3928ZlR1% (BldA) [Mass fraction]96 %[facility]07-10-2023 03:30-0400Systolic blood qrnvmwvy188 mm[Hg][facility]07-10-2023 03:00-0400Diastolic blood mkahmjln61 mm[Hg][facility]07-10-2023 03:00-0400Heart rate80 /[facility]07-10-2023 03:00-0400Mean blood mm[Hg][facility]07-10-2023 03:00-0400Respiratory rate15 /[facility]07-10-2023 02:30-0400Diastolic blood mm[Hg][facility]07-10-2023 02:30-0400Heart rate96 /[facility]07-10-2023 02:30-0400Mean blood ppqeocpj99 mm[Hg][facility]07-10-2023 02:30-0400 Respiratory rate20 /[facility]07-10-2023 02:30-2553YiN3% (BldA) [Mass fraction]98 %[facility]07-10-2023 02:30-0400Systolic blood flygsycp114 mm[Hg][facility]07-09-2023 19:17-0400Respiratory rate18 /[facility]07-09-2023 18:11-0400Respiratory rate18 /min [facility]07-09-2023 17:07-0400Body temperature 97.7 [degF][facility]07-09-2023 17:07-0400Heart rate83 /[facility]07-09-2023 17:07-0400 Respiratory rate18 /[facility]07-05-2023 15:50-0400Body geriogqnxtt02.2 [degF][facility] [place]07-05-2023 15:50-0400Diastolic blood fmmepsge23 mm[Hg][facility] 08-22-2022 15:50-0400Heart rate64 /[facility] 08-22-2022 15:50-0400Respiratory rate18 /[facility] 08-22-2022 15:50-8811NrK3% (BldA) [Mass fraction]99 %[facility] [place]07-05-2023 15:50-0400Systolic blood ddisnjgr447 mm[Hg][facility] [place]07-05-2023 05:48-0400Body kgSelect [facility] [place]07-04-2023 10:27-261481 1Kim E Barraza Work Phone: 1(506) [phone]-Lbkge [place] [facility] DO Work Phone: Comment on above:AUSKOBRC4788-15-5831 18:32-0400Body mxoqhc024.72 cm[facility] [place]07-03-2023 17:13-0400Heart rate 42 /[facility]07-03-2023 16:38-0400Diastolic blood kryguejf41 mm[Hg][facility] [place]07-03-2023 16:38-0400 Respiratory rate18 /minSelect [facility] [place]07-03-2023 16:38-0400 SaO2% (BldA) [Mass fraction]98 %[facility] [place]07-03-2023 16:38-0400Systolic blood eqirfxzo168 mm[Hg][facility] 08-20-2022 16:25-0400Body .72 cm[facility] [place] 08-20-2022 16:25-0400Body ktipbxnmvzg96.6 [degF][facility] [place]07-03-2023 16:25-0400Body .5 kg[facility] [place] 10-27-2021 08:55-0400Blood Pressure LocationPatrick IVORY [facility]09-09-2022 08:55-0400Diastolic blood xoohymux41 mm[Hg]Shanna IVORY [facility]09-09-2022 08:55-0400Heart rate64 /minPatrick IVORY [facility]09-09-2022 08:55-0400Respiratory rate16 /minPatrick IVORY [facility]09-09-2022 08:55-0400Systolic blood ybqelkds253 mm[Hg]Shanna IVORY [facility]01-18-2022 15:22-0500Diastolic blood mm[Hg]Jame Barraza Work Phone: [phone]-Xgbhf [place] [facility] DO Work Phone: 1(524) 258-970601-18-2022 15:22-0500Systolic blood fyaxasaq977 mm[Hg] Jame Barraza Work Phone: [phone]-Kfvpd [place] [facility] DO Work Phone: 1(414) 535-286701-18-2022 14:47-0500Body mwcojf411.64 cmKim E Barraza Work Phone: 1(493) [phone]-Obhwj [facility] 250 DO Work Phone: 1(336) 804-789601-18-2022 14:47-0500Body mass index (BMI) [Ratio] 28.73 kg/m2Kim E Barraza Work Phone: 1(400) [phone]-Owgoe [facility] DO Work Phone: 1(183) 258-264601-18-2022 14:47-0500Body surface area Derived from formula1.9 m2Kim E Barraza Work Phone: 1(233) [phone]-Gdpzm [facility] DO Work Phone: 1(139) 631-614501-18-2022 14:47-0500Body xhvtak64.74 kgKim E Barraza Work Phone: 1(357) [phone]-Cwtya [facility] DO Work Phone: 1(652) 440-611001-18-2022 14:47-0500Diastolic blood utcfnilw35 mm[Hg] Jame Elissa Barraza Work Phone: 1(403) [phone]-Jufdc [facility] DO Work Phone: 1(480) 198-205101-18-2022 14:47-0500Heart rate84 /minKim E Barraza Work Phone: 1(551) [phone]-Lhjry [facility] DO Work Phone: 1(766) 507-626001-18-2022 14:47-0500Systolic blood mwqnxvof117 mm[Hg] Jame Elissa Barraza Work Phone: 1(891) [phone]-Kwvhh [facility] 250 DO Work Phone: 1(429) 251-571410-07-2021 08:51-0400Body zpizkv250.64 cmKim E Barraza Work Phone: 1(995) [phone]-Xgbbd [facility] 250 DO Work Phone: 1(644) 586-755810-07-2021 08:51-0400Body mass index (BMI) [Ratio] 28.08 kg/m2Kim E Barraza Work Phone: 1(281) [phone]-Cjqxb [facility] 250 DO Work Phone: 1(731) 564-930210-07-2021 08:51-0400Body surface area Derived from formula1.89 m2Jame Barraza Work Phone: 1(933) [phone]-Jblau [facility] DO Work Phone: 1(956) [phone] 08:51-0400Body .93 kgKikumar Barraza Work Phone: 1(978) [phone]-Mysbt [facility] 250 DO Work Phone: 1(843) 143-553010-07-2021 08:51-0400Diastolic blood xfupvjba31 mm[Hg] Jame Barraza Work Phone: 1(582) [phone]-Nnwlc [facility] DO Work Phone: 1(766) [phone] 08:51-0400Diastolic blood vfodwfua31 mm[Hg] Jame Barraza Work Phone: 1(668) [phone]-Egdvg [facility] DO Work Phone: 1(201) 924-397010-07-2021 08:51-0400Heart rate66 /minKikumar Barraza Work Phone: 1(959) [phone]-Laylh [facility] 250 DO Work Phone: 1(642) 867-197810-07-2021 08:51-0400Systolic blood aiminvdd898 mm[Hg] Jame Barraza Work Phone: 1(983) [phone]-Gnrfb [facility] DO Work Phone: 1(106) 180-480110-07-2021 08:51-0400Systolic blood orvjhxxd795 mm[Hg] Jame Barraza Work Phone: 1(853) [phone]-Vcjgl [facility] DO Work Phone: Encounters Encounter DateEncounter TypeCare ProviderFacilityStart: 58-93-5386hdsrhwolkm Shanna Sánchez WATERSFacility:LAYTON BellevueStart: 12-07-2024 End: 84-83-8505bhcoeetfbtOdrlffbEliza Briscoe MDFacility:[facility] [place] Start: 08-17-2024 End: 40-48-1897phkvkmcbevSoyjexmEliza Briscoe MDFacility:PM [place] Start: 07-31-2024 End: 90-17-5125Lvmqjdile Result EncounterGeneric External Data ProviderNOMS External Department UnsolicitedStart: 07-31-2024 End: 97-19-6143Pmjniikbm Result EncounterGeneric External Data ProviderNOMS External Department UnsolicitedStart: 06-25-2024 End: 64-43-6293pkwvyzkpciAhaai M AldaFacility:[facility] [place] Start: 06-25-2024 End: 06-58-9876Spgubaa encounter procedureDav Peguero MD Work Phone: [facility] Work Phone: Start: 05-05-2024 End: 11-90-2047tdtymxymnrTaugtckscAvita Health [facility] Work Phone: Start: 05-05-2024 End: 88-99-0681Jmfhuhf encounter procedureEcu Health Physician GroupOuachita and Morehouse parishes [facility] Work Phone: Start: 04-02-2024 End: 60-26-1228Ddupxh Rory Peguero MD Work Phone: [facility] CI FMStart: 04-02-2024 End: 99-07-7737Hkfjca Rory Peguero MD Work Phone: [facility] CI FMStart: 04-02-2024 End: 68-62-6192Trnex of hemosiderin, quantDav Peguero MD Work Phone: NOMS HealthcareStart: 04-02-2024 End: 62-56-1375Nanettp encounter procedureDav Peguero MD Work Phone: [facility] CI FMComment on above:Routine general medical examination at health care facility (Primary Dx); Benign essential hypertension (CMS/HCC); Nocturia; Medicare annual wellness visit, initial; Type 2 diabetes mellitus without complication, without long-term current use of insulin ([facility]); Mixed hyperlipidemia ([facility]); Sciatica, unspecified laterality; Coronary artery disease of [place] artery of [place] heart with stable angina pectoris ([facility])Start: 04-02-2024 End: 19-35-7972jmlxijkvfmHPGFN Kumar Mar AvailableStart: 03-27-2024 End: 21-37-9801awfwqdybtmUucxirf R WATERSFacility:EU ueStart: 03-27-2024 End: 25-16-8012Xuzrfla encounter procedureShanna IVORY [facility] start: 03-13-2024 End: 18-98-4508Zfszqy outpatient visit 25 minutesAshutosh Ling MD Work Phone: uh LosonocoComment on above:Arteriosclerotic cardiovascular disease (Primary Dx); Post PTCA; Mixed hyperlipidemia; Abnormal EKG; Essential hypertension; Easy bruisability; Never smoked tobacco; BMI 28.0-28.9,adultStart: 12-13-2023 End: 46-96-7460Yyyepijhv Result EncounterGeneric External Data ProviderNOMS External Department UnsolicitedStart: 12-13-2023 End: 00-95-5823Rgzglijgz Result EncounterGeneric External Data ProviderNOMS External Department UnsolicitedStart: 11-29-2023 End: 41-79-0929lkzdvcntonEfffulf R WATERSFacility:EU ueStart: 11-29-2023 End: 56-54-1975Vxvzvwa encounter procedureShanna IVORY [facility] start: 06-26-2023 End: 23-03-2278Vlaang outpatient visit 25 minutesAshutosh Ling MD Work Phone: uh LosonocoComment on above:Essential hypertension (Primary Dx); Arteriosclerotic cardiovascular disease; Abnormal EKG; Mixed hyperlipidemia; Post PTCA; BMI 26.0-26.9,adult; Never smoked tobaccoStart: 06-26-2023 End: 19-18-8915ungaytimxmCMDEQUI [facility] AmbulatoryStart: 06-18-2023 End: 67-51-7791yjebgiyuhsOZMHP M HEMMERNot AvailableStart: 05-21-2023 End: 14-18-1543ajemmtelzeUVXVC M Mar AvailableStart: 15-54-1829Fgwayqd encounter procedureGeneric ProviderNOME HealthcareStart: 01-09-2023 End: 84-82-1071Qlbkih outpatient visit 25 minutesAshutosh Ling MD Work Phone: [facility] CenterComment on above:Arteriosclerotic cardiovascular disease (Primary Dx); Abnormal EKG; Mixed hyperlipidemia; Primary hypertension; Post PTCA; Essential hypertension; BMI 26.0-26.9,adult; Easy bruisabilityStart: 10-29-2022 End: 45-64-7617jywpdxkqvxGojifh Dymond Other [facility] [employer] Other Start: 40-40-0991Idekhn outpatient new 10 minutes Estella SiddiquiOASIS BEH[facility] Urgent Care ClydeStart: 71-76-0375Nq Lauren Hernandez Work Phone: [phone]-Aqymo [facility] DO Work Phone: Start: 06-14-4195Za RenewalDaniel Hernandez Work Phone: [phone]-Vzqlx [facility] DO Work Phone: Start: 39-10-8752Fhhnfnlsr encounterSnona Wilson RN UrologyComment on above:Patient UpdateStart: 64-76-9655Udsifb outpatient visit 25 Jaswant Hernandez Work Phone: [phone]-Tfkeg [facility] DO Work Phone: Start: 61-51-7693Wygrevb encounter procedureSkatie Hernandez Work Phone: 1(559) [phone]-Pskep [facility] DO Work Phone: Start: 56-74-2502wzgjxsnecfVd. Ashutosh Codyalexanderherbie Facility:[id number]: 09-05-2022 End: 73-67-4380Ahziply encounter procedureShaysofiya KOROMA [facility] Start: 47-48-7909Amocdbwzi encounterRoisin Fred RNNOC Comment on above:Follow Up Phone Call (All Clear)Start: 08-27-2022 End: 50-88-7641Abxiflxwiu and management of inpatientPASADENA JULIANA [facility] 08-26-2022 End: 00-46-6090Ivdrosnjz department patient visitAstrit [facility] Start: 93-46-6955Vozgw Lee Barraza Work Phone: 1([phone]-Zsffq [facility] DO Work Phone: Start: 62-93-0586eysfwblmrjGc. Jame Barraza Facility:[id number]: 62-24-4876hgxqfatpmlQq. Jame BarrazaFacility:9090Start: 08-20-2022 End: 23-98-7754Qtyvztywte and management of inpatientFostoria City [facility] Work Phone: Start: 09-67-5485Vyfbhjbnc to same day surgery center [facility] [employer] [facility] Work Phone: Start: 93-29-0276mjoezldomcQVF STAFFFostoria City Hospital Ctr Work Phone: Start: 09-65-0290zgiyicxzdaBo. Ben Zamora Facility:[id number]: 51-09-0432kvscisdmhgZs. Jame BarrazaFacility:9023Start: 95-98-7129zzlfeizigwRq. Daniel HernandezFacility:13671Knrbu: 10-27-2021 End: 15-50-2117Xhoiasf encounter procedurePamartinez Prinecss IVORY [facility] Franca start: 10-26-2021 End: 51-76-5104xpfrtvqwndAW SHANNA IVORYFacility:J8Ppnsl: 17-91-8504juzsrrkesg DOMINGUEZ GUTIERREZFacility:S9Msoqm: 09-34-3682Nguphx outpatient visit 25 minutes Jame Elissa Ontela Work Phone: [phone]-Wcfex [facility] DO Work Phone: Start: 55-31-8940Bgibb UpdateKim E Ontela Work Phone: [phone]-Snctq [facility] DO Work Phone: Start: 47-72-5706Rqiojfj encounter procedureKim E Barraza Work Phone: [phone]-Dizsb [facility] [address]A [place] Work Phone: Start: 45-69-8820WRBXYKtn E Ontela Work Phone: [phone]-Olrnr [facility] 250 DO Work Phone: Procedures DateProcedureProcedure DetailPerforming ClinicianStart: 41-86-2054LZ LUMBAR SPINE WO CONGeneric External Data ProviderStart: 80-68-5752Ikpljvrnqv glycosylated s1pGwupeDav Peguero MD Work Phone: Start: 50-47-5210IJM BUNGeneric External Data Provider Start: 67-73-2418FHF CARBON DIOXIDEGeneric External Data ProviderStart: 18-95-5367NNS CHLORIDEGeneric External Data ProviderStart: 30-49-0069QNG PHOSPHOROUSGeneric External Data ProviderStart: 20-86-6678UKS SODIUMGeneric External Data ProviderStart: 85-10-9639EWV URIC ACIDGeneric External Data ProviderStart: 24-05-3798IJM CALCIUMGeneric External Data ProviderStart: 23-64-6350MOX CREATININEGeneric External Data ProviderStart: 45-98-5466WILDSRS 24 HOUR URINEGeneric External Data ProviderStart: 92-42-1292HFHDFGNJCB 24 HOUR URINEGeneric External Data ProviderStart: 84-56-0267YUYSIO 24 HOUR URINEGeneric External Data ProviderStart: 88-78-5633HNEDNF UP IN CARDIOLOGYNDAPARNA LING Start: 00-16-3091Krzqhqpwshaniqua AGUILARomment on above:Order Comment: Specimen Type: BLOOD SPECIMENOrdering Facility: [facility] Address:[address] [place], [place] [address]Performed By: #### TSCR ####CC MAIN BLOOD BANKCLIA [id number] AMERICAStart: 99-78-0050Fhgfq w/irrig & evac multple obstructing clotsPatrick [employer] Start: 31-01-3798Igapl rescj residual/regrowth obstr prstate tissPatrick [employer] Start: 60-35-4444Lkqlvdkeleeroy AGUILARomment on above:Order Comment: Specimen Type: BLOOD SPECIMENOrdering Facility: [facility] Address:[address] [place], [place] [address]Performed By: #### TSCR ####CC MAIN BLOOD BANKCLIA [id number] [place] [address] [place] AMERICAStart: 52-79-8892PV Closure Device Placement 0Start: 17-41-2112DR LHC & COR AngioStart: 39-91-4587XC PCI AMI 1st Vessel RCA DESStart: 72-47-6361JajpahfzluKfrgvtr [employer] Comment on above:11/08/200904/2006Start: 11-40-5044Vlcnzvxklelua prostatectomyPatrick [employer] Start: 71-66-9882Lmqhwzcyqe studiesPaESBATech Start: 14-22-3876Sdjkizdtvri biopsy of prostate using ultrasound guidanceChlorine Genie Start: 19-42-3396Lucvxrabfceklp shockwave lithotripsy of calculus of kidneyAustinDomainexsushant [employer] Comment on above:LEFTHistory of placement of stent for coronary artery diseaseS/P coronary artery stent placementDav Peguero MD Work Phone: Comment on above:3Procedure on prostateJame Barraza Work Phone: UreterocystostomySamargieje Hernandez Work Phone: Urinary catheter placementDaniel Hernandez Work Phone: NEGATED: Highlighted row has not occurred!Total colonoscopyJame Barraza Work Phone: Plan of Treatment DateCare ActivityDetailAuthorStart: 42-09-9229KFtH/Tdap/Td Vaccines (2 - Td or Tdap)DTaP/Tdap/Td Vaccines (2 - Td or Tdap)[facility] Start: 41-37-1940Hlngo microalbumin profileDTAP,TDAP,TD (2 - Td or Tdap) [facility] Campustart: 72-21-5788Pqzde screening for proteinDiabetes: Urine Protein ScreeningMissouri Baptist Hospital-SullivanStart: 02-13-2026Medicare Annual Wellness (AWV) Medicare Annual Wellness (AWV)[facility] HealthcareStart: 11-27-2024 End: 67-14-3711Qbioenk encounter hsorppqhy94/10/2025 10:50 AM EDT Office Visit [facility] [address] [place] [address] Ashutosh Ling MD [address] [facility] [address] [place] [address] [facility] CenterStart: 13-91-4164Mnrqcgtnpy A1c measurementDiabetes: Hemoglobin P0IYVZD HealthcareStart: 85-39-2541VfqcksmilPremier Health Upper Valley Medical Centertart: 04-02-2024 End: 72-43-4951BJN W Auto Differential panel - BloodCBC and differential Lab Routine Benign essential hypertension (CMS/HCC) Nocturia Medicare annual we llness visit, initial Type 2 diabetes mellitus without complication, without long-term current use of insulin (CMS/HCC) Mixed hyperlipidemia (CMS/HCC) Expected: 04/02/2024 (Approximate), Expires: 04/02/2025[facility] Work Phone: Comment on above:Expected: 04/02/2024 (Approximate), Expires: 04/02/2025Start: 04-02-2024 End: 53-59-3896Enwbflldsrrnw metabolic 2000 panel - Serum or PlasmaComprehensive metabolic panel Lab Routine Benign essential hypertension (CMS/HCC) Nocturia Medicareannual wellness visit, initial Type 2 diabetes mellitus without complication, without long-term current use of insulin (CMS/HCC) Mixed hyperlipidemia (CMS/HCC) Expected: 04/02/2024 (Approximate), Expires: 04/02/2025 [facility] HealthcareComment on above:Expected: 04/02/2024 (Approximate), Expires: 04/02/2025Start: 04-02-2024 End: 58-10-5476Wolrz 1996 panel - Serum or PlasmaLipid panel Lab Routine Medicare annual wellness visit, initial Mixed hyperlipidemia (CMS/HCC) Expected: 04/02/2024 (Approximate), Expires: 04/02/2025[facility] HealthcareComment on above: Expected: 04/02/2024 (Approximate), Expires: 04/02/2025Start: 04-02-2024 End: 02-13-0510Ndzxsyvcvzyq/Creatinine panel in random UrineMicroalbumin / creatinine urine ratio Lab Routine Medicare annual wellness visit, initial Type 2 diabetes mellitus without complication, without long-term current use of insulin (CMS/HCC) Expected: 04/02/2024 (Approximate), Expires: 04/02/2025[facility]Comment on above:Expected: 04/02/2024 (Approximate), Expires: 04/02/2025Start: 04-02-2024 End: 13-38-1686Vlczyrpt specific Ag [Mass/volume] in Serum or PlasmaPSA Lab Routine Nocturia Medicare annual wellness visit, initial Expected: 04/02/2024 (Approximate), Expires: 04/02/2025[facility] HealthcareComment on above:Expected: 04/02/2024 (Approximate), Expires: 04/02/2025Start: 04-02-2024 End: 43-28-3896Poneiek encounter nivhwvuhg14/13/2025 1:00 PM EST Office Visit [facility] [address] [facility] [address] [place] [address] Dav Peguero MD [address] [facility] [address] [place] [address] ArrivedNOME CI FMComment on above:ArrivedStart: 03-15-2024 Urine screening for proteinDiabetes: Urine Protein ScreeningMissouri Baptist Hospital-Sullivan Start: 03-13-2024 End: 64-44-2038Upzekkt encounter aelpkkfit75/24/2025 11:20 AM EST Office Visit [address] [id number] Ashutosh Ling MD [address] [place] [address] 2, [address] [address] [facility]: 01-23-2025Medicare Annual Wellness (AWV)Medicare Annual Wellness (AWV)[facility] HealthcareStart: 03-28-6848ADCCE-19 Vaccine ( season)COVID-19 Vaccine ( season)[facility]Start: 52-30-3660Bctbkaubc vaccination Influenza Vaccine (#1)[facility] HealthcareStart: 85-46-0298Ugfqxafkzi A1c measurement Diabetes: Hemoglobin B0HFJAT HealthcareStart: 06-26-2023 End: 72-58-2408Zpfalrq encounter dboxzasee95/08/2024 3:10 PM EDT Office Visit [address] [address] Ashutosh Ling MD [address] [facility] 2, [address] [place] [address] [facility] CenterStart: 53-34-8856YIR, Provider: Ashutosh Ling, Status: Pen, Time: 11:20 AMFUV, Provider: Ashutosh Ling, Status: Pen, Time: 11:20 AMMPChristine [place] [address] DO Work Phone: Start: 84-70-6009XKO, Provider: Ashutosh Ling, Status: Pen, Time: 3:30 PMFUV, Provider: Ashutohs Ling, Status: Pen, Time: 3:30 PMMPChristine Ville [address] DO Work Phone: Start: 97-43-6718URQEC-19 Vaccine ( season) COVID-19 Vaccine ()[facility] DaytonStart: 70-58-3922Ixgzxeoyi vaccinationINFLUENZA (#1)[facility]ustart: 09-05-2022 FUV, Provider: Ashutosh Ling, Status: Pen, Time: 12:50 PMFUV, Provider: Ashutosh Ling, Status: Pen, Time: 12:50 PMMPChristine Ville [address] DO Work Phone: Start: 62-56-9824FuwheimafSelect Medical Specialty Hospital - [facility] [place] Start: 60-00-8822QgbcdfyvriiiSkobzupuiPremier Health Upper Valley Medical Centertart: 08-20-2022 Referral to cardiac rehabilitation programSelect Medical Specialty [facility] [place] Start: 42-71-3197SpfekgnoiPremier Health Upper Valley Medical Centertart: 08-20-2022 End: 90-07-2620Lozlqzqx admissionPremier Health Upper Valley Medical Centertart: 38-11-1915SHPXLPF DIRECTIVE DISCUSSIONADVANCE DIRECTIVE DISCUSSIONSumma Health Akron Campustart: 23-11-1189PCVVYWLGMK ASSESSMENTDEPRESSION ASSESSMENTSumma Health Akron Campustart: 03-31-2995DVK, Provider: Ashutosh Ling, Status: Pen, Time: 2:30 PMFUV, Provider: Ashutosh Ling, Status: Pen, Time: 2:30 PMMP-[facility] 250 DO Work Phone: Start: 15-75-5670OXMWB-19 VACCINE (4 - Pfizer series) COVID-19 VACCINE (4 - Pfizer series)[facility] Campustart: 96-67-6614PQD, Provider: Ashutosh Ling, Status: Pen, Time: 2:50 PMFUV, Provider: Ashutosh Ling, Status: Pen, Time: 2:50 PMMP-[facility] 250 DO Work Phone: Start: 81-12-6862MJQNL ELIEZER, Provider: FADUMO BENSON BOGGER OPERATOR 1,[id number], Status: Pen, Time: 10:30 AMEVENT ELIEZER, Provider: FADUMO BENSON BOGGER OPERATOR 1,[id number], Status: Pen, Time: 10:30 AM-[facility] 250 DO Work Phone: Start: 45-31-8612TJT High Risk: (Elderly (60+) or Population) (1 - 1-dose 75+ series)RSV High Risk: (Elderly (60+) or Population) (1 - 1-dose 75+ series)[facility] Start: 30-23-6577DXP patients and/or patients aged 60+ years (1 - 1- dose 60+ series)RSV patients and/or patients aged 60+ years (1 - 1-dose 60+ series)[facility] DaytonStart: 12-03-6550JFWIPRSS VACCINE (1 of 2)SHINGRIX VACCINE (1 of 2)[facility] Campustart: 32-44-2719Uhlcak Vaccines (1 of 2)Zoster Vaccines (1 of 2)[facility] DaytonStart: 88-09-4004IXOIUE PCP TEAM CHRONIC DISEASE VISITANNUAL PCP TEAM CHRONIC DISEASE VISITSumma Health Akron Campustart: 24-00-4069HC CONTROLLED (<130/80)BP CONTROLLED (<130/80)[facility] Campustart: 12-47-3984Xzngffwm mellitus screeningDiabetes ScreeningKindred Hospital DaytonStart: 96-68-1100Ulgquwsuv B surface antibody levelLDL CHOLESTEROLSumma Health Akron Campustart: 10-77-5749BKOJSUAUQ C SCREENINGHEPATITIS C SCREENINGSumma Health [facility] Campustart: 73-55-3640Npdmgzgur C screeningHepatitis C ScreeningKindred Hospital DaytonStart: 06-18-1955 3 comp foot exam completedDIABETIC FOOT EXAMSumma Health Akron Campustart: 06-18-1955 Glaucoma screeningDiabetes: Retinopathy ScreeningMissouri Baptist Hospital-SullivanStart: 39-36-1760Lcjctxnux B screeningURINE ALBUMIN:CREATININE RATIOSt. Francis Hospital Start: 93-16-9908Nbwlmsdqw C antibody, confirmatory testDILATED RETINAL EXAM [facility] Southrt: 87-15-6292Chwtfsxcjo A1c/Hemoglobin.total in DanswOWG8I [facility] Southrt: 16-16-2779Obwzj panelLipid PanelUniversity Hospitals TriPoint Medical Center: 04-30-1946Medicare Annual Wellness VisitMedicare Annual Wellness Visit (AWV)[facility] DaytonPatient EducationCoronary Angioplasty (DC) Coronary Stenting (DC) Angina (DC) Chest Pain (DC) Drug Eluting StentsFostoria City Hospital Ctr Work Phone: Patient referralFostoria City Hospital Ctr Work Phone: Immunizations Immunization DateImmunizationNotesCare DrpqffsqCqguanyf76-62-9412sgevurrhi, high dose seasonal, preservative-freeDav Peguero MD Work Phone: [facility]-SullivanQpxeonjahz55-46-4754ntjduiikb, seasonal, injectableMoaparna Ling MD Work Phone: [facility] Work Phone: [phone]c virus vaccine, unspecified formulationPamartinez IVORY [facility]10-02-2023Influenza, High-dose Seasonal, Quadrivalent, Preservative Free Generic ProviderMissouri Baptist Hospital-SullivanOyqtyucaqd61-66-8439nlyjkfifb nasal, unspecified formulationRoisin Ibarra [facility] HospitalUbwhnw02-66-9432gkmigdwwz virus vaccine, live, attenuated, for intranasal useParkland Health Center11-08-2022 Fluad Quadrivalent 0.5 ML Intramuscular Prefilled SyringeKim E Barraza Work Phone: [facility]. Francis HospitalGiaree38-62-8127jugfopvyi virus vaccine, unspecified formulationPaESBATech [facility]11-08-2022influenza, high dose seasonal, preservative-freeAshutosh Ling MD Work Phone: [facility] Work Phone: [phone]ptn toxoid, reduced diphtheria toxoid, and acellular pertussis vaccine, adsorbedRoisin IbarraOhioHealth O'Bleness Hospital 85-70-4513Dexyyk-Cardiovascular Decisions COVID-19 Vacc 30 MCG/0.3ML Intramuscular SuspensionKim E Barraza Work Phone: [facility] Francis HospitalPwrklb93-01-5744xgoptvjld nasal, unspecified formulationRoisin IbarraOhioHealth O'Bleness Hospital09-23-2021Fluad Quadrivalent 0.5 ML Intramuscular Prefilled SyringeKim E Ontela Work Phone: [facility]. Francis HospitalRzqjfi53-82-0277jbwnlxljn virus vaccine, unspecified formulationChlorine Genie [facility]02-23-2021Pfizer-BioNTech COVID-19 Vacc 30 MCG/0.3ML Intramuscular SuspensionKim E Barraza Work Phone: [facility]. Francis HospitalComment on above:Result Comment: 2022-11-26: LSL2969-96-6028IYBNL-96 original vaccine, age 12+ yr, monovalent (PFIZER-BIONTECH - PURPLE TOP)Roisin IbarraGreene Memorial HospitalWxuxaa20-91-5655Cglgvz- BioNTech COVID-19 Vacc 30 MCG/0.3ML Intramuscular SuspensionKim E Barraza Work Phone: [facility] Hospital DaytonComtrinity health oak[facility] hospital on above: Result Comment: 2022-11-26: PWX7782-86-7893ORYS-VzR-3 (COVID-19) Ad26 vaccine, recombinantPaDomainexsushant RentJuice [facility] on above:Result Comment: unable to give exact gjiyx82-84-0245 influenza (HD-IIV4) vaccine, age 65+ yr, high dose, quadrivalent, PF (FLUZONE HIGH-DOSE)Roisin Ibarra [facility]igh HospitalGoffkv39-26-6479SB12 adjuvantRoisin IbarraMarietta Osteopathic Clinic11-06-2018AS03 adjuvantRoisin Ibarra [facility]11-03-2017 influenza, high dose seasonal, preservative-freeRoisin IbarraOhioHealth O'Bleness Hospital 17-38-7390cayuriyxooni polysaccharide vaccine, 23 valentKim Elissa Barraza Work Phone: [facility] on above:Series:11-23-2015 influenza virus vaccine, unspecified formulationChlorine Genie [facility]10-05-2016influenza, high dose seasonal, preservative-freeJame Barraza Work Phone: [facility] HospitalHaqkfe02-82-0268epbtgercp nasal, unspecified formulationRoisin IbarraOhioHealth O'Bleness HospitalZoxqzl01-56-7156mowgezazw nasal, unspecified formulationRoisin IbarraOhioHealth O'Bleness HospitalYkpdaw19-82-2008jpcpysfiqpet conjugate vaccine, 13 valentRoisin IbarraOhioHealth O'Bleness Hospital Payers DatePayer CategoryPayerPolicy [id number]-pay2023Medicare ([facility] Care)[id number] [id number] [id number] [id number] 1960 Private Health [id number] 2.16840.1.650701.3.57[id number] 2.840.1.547412.3.57[id number] 2.0.1.373257.3.57[id number] 2.840.1.750946.3.57[id number] 2.840.1.103511.3.57[id number] 2.840.1.389930.3.57[id number] 2.840.1.111418.3.57[id number] 2.840.1.217397.3.57[id number] 2.840.1.035652.3.57[id number] 2.16840.1.483172.3.57[id number] 2.16840.1.687992.3.57[id number] 2.16840.1.765140.3.57[id number] 2.16840.1.841855.3.57[id number] 2..840.1.731141.3.57[id number] 2.16.840.1.292715.3.57[id number] 2..0.1.574437.3.57[id number] 2.16.840.1.517595.3.579.2.196Private Health InsuranceBarnesville [id number] [id number]-umoc-[id number] 2.0.1.444425.3.579.2.531 Social History DateTypeDetailFacilityStart: 01-08-2023 End: 43-19-0228Oq alcohol useNo alcohol useNOMS Healthcare Work Phone: Comment on above:1 cup of coffee daily;former cigar smoker;Start: 10-21-2020 End: 82-39-4758Unsckex smoking statusNever smoked tobacco (finding)[facility] start: 01-08-2023 End: 29-74-0430Vxt Assigned At [facility] start: 62-63-9891Asf Assigned At [facility] HospitalTobacco smoking status NHISTobacco smoking consumption unknownFredericksburg ClinicStart: 71-52-6455Mnp Assigned At BirthNot on file [facility] Campustart: 21-69-8058Hdokrde smoking status NHISEx-smokerUnSamaritan North Health Center Work Phone: History of tobacco useCurrent smokerUnSamaritan North Health Center Work Phone: History of tobacco useCigar SmokerKindred Hospital Dayton Work Phone: Start: 10-31-2022 End: 41-00-5005Wijfdbo use and exposureSmokeless tobacco non-userKindred Hospital Dayton Work Phone: Start: 01-09-2023 End: 51-71-6167Lfnazyq intakeEx-drinker (finding)[facility] Work Phone: Start: 12-30-2022 End: 17-72-2018Kwcamids to SARS-CoV-2 (event)Not sureKindred Hospital DaytonTobacco smoking statusNeverExecutive [facility] BellevueStart: 06-18-2023 End: 69-25-7008Tcwsxxuwa beverage intakeDeferNOMS HealthcareStart: 03-13-2024 Alcoholic beverage intakeLifetime non-drinker (finding)[facility] Work Phone: Start: 05-05-2024 End: 41-97-5686AmiYnct (finding)[facility] Medical Equipment Procedure CodeEquipment CodeEquipment Original TextEquipment IdentifierDatesCL STENT BISHOP FRONTIER 3.0 X 26FDAStart: 90-26-9849Fwqowgd artery closure plug/patch, synthetic polymer([id number] FDAStart: 08-20-2022 CL STENT BISHOP FRONTIER 3.0 X 26FDAStart: 95-78-9375TN STENT BISHOP FRONTIER 3.0 X 26FDAStart: 34-66-5542GV STENT BISHOP FRONTIER 3.0 X 26FDAStart: 08-20-2022 Goals DatePatient GoalDesired Activity/State Functional Status AtfoDipalmxynnTwucvgAqrghoqc74-70-2286Svrnvgbxvz StatusN/AExec[facility]10-11-2024Functional StatusN/A[facility]07-09-2023Functional StatusN/A [facility]07-05-2023Functional statusPatient at Baseline [facility] Work Phone: [phone]) [phone]qmhnyykqw StatusN/AExec[facility] Franca Mental Status TzsqAmkfepubprYttgviLjjpedqx41-70-5880Vxqvqatqd functionCognitive Status Patient at BaselineUniversity Hospitals Health System Work Phone: Clinical Notes 10-27-2021 to 05-05-2024 Note Date & BkooUmynCaasecdf25-02-5532 Evaluation note* Diagnosis Onset Date Resolution Status Admit Date Bilateral impacted cerumen noneactiveMarch 2024 12:34pm [facility] Work Phone: 1(402) 527-240903-18-2025 Evaluation note* Diagnosis Onset Date Resolution Status Admit Date Bilateral impacted cerumen noneactiveMarch 2024 12:34pmCoronary artery disease involving [place] coronary artery of [place] heart wiacuteMay 2024 1:39pmEssential (primary) hypertensionacuteMay 2024 1:39pmMixed hyperlipidemiaacuteMay 2024 1:39pmS/P coronary artery stent placementacuteMay 2024 1:39pm [facility] Work Phone: 1(469) 599-316102-13-2025 History of Present illness Narrative* Dav Peguero [...] without complication, without long-term current useof insulin ([facility]) No Tobacco use Follow ADA 1800 diet [...] Medicine) Dav Peguero MD as PCP - [facility] Medicare Annual Visit Over the past 2 [...] by direct observation Three Word Registration: Banana, [place], Chair Clock Drawing: Normal Clock - 2 Three Word Recall: 1/3 words correct - 1 Total Score (0-5 Points): 3 Pain Assessment Pain Score: 5 - Moderate pain Advance Care Planning Do you have a living will?: Yes Do you have a medical power of trade mark attorney?: Yes Objective : BP 138/72 Pulse [...] Addressed This Visit Coronary artery disease of [place] artery of [place] heart with stable angina pectoris ([facility]) Relevant Orders Ambulatory referral to Cardiology Type 2 diabetes mellitus without complication, without long-term current use of insulin ([facility]) No Tobacco use Follow ADA 1800 diet [...] POCT Glycated hemoglobin, total (Completed) Mixed hyperlipidemia ([facility]) Relevant Orders CBC and differential Comprehensive metabolic [...] Cardiology Please fax to [facility] [address] Standing Status: Future Standing Expiration Date: 09/30/2024 Referral Priority: Routine Referral Type: Consultation Referral Reason: Specialty Services Required Requested Specialty: Cardiology Number of Visits Requested: 1 POCT Glycated hemoglobin, total Electronically signed by Dav Peguero MD on April 02, 2024 documented in this encounterMissouri Baptist Hospital-SullivanUxmhleiftf11-37-9112 Hospital Discharge instructions Patient Education 03/27/2024 09:23:01 [...] include: ?8 oz (237 mL) of milk, xvxlvlc-hxkuzlxnuylp-klzbi milk, and calcium- fortifiedfruit juice. Calcium-fortified means [...] ?Spinach (cooked), rhubarb, beets, sweet potatoes, and Iraqi chard. ?Peanuts. ?Potato chips, maltese fries, and baked potatoes with skin on. ?Nuts and nut products. ?Chocolate. If you regularly take a diuretic medicine, make sure to eat at least 1 or 2 servings of fruits or vegetables that are high in potassium each day. These include: ?Avocado. ?Banana. ?[place], prune, carrot, or tomato juice. ?Baked potato. [...] magnesium, fish oil, or vitamin B6. Take wwaa-twx-wdfveav and prescription medicines only as told by [...] Casseroles. Pizza. Lasagna. Frozen meals. Potato chips. Palauan fries. The items listed above may not [...] Document Reviewed: 05/17/2022 Elsevier Patient Education 2023 [employer] Follow Up Care 11/29/2023 09:51:27 With:CACHORRO HAHN, Shanna Sánchez, URL Address: [address] [place] [address] [place] [address]- When: Unknown [facility] 02-07-2025 NotePatient Education Nephrology Dietary Guidelines to [...] ? 8 oz (237 mL) of milk, iyasihz-tfqzhhhvcwfa-oqdoh milk, and calcium- fortifiedfruit juice. Calcium-fortified means [...] Spinach (cooked), rhubarb, beets, sweet potatoes, and Iraqi chard. ? Peanuts. ? Potato chips, maltese fries, and baked potatoes with skin on. ? Nuts and nut products. ? Chocolate. ??? If you regularly take a diuretic medicine, make sure to eat at least 1 or 2 servings of fruits or vegetables that are high in potassium each day. These include: ? Avocado. ? Banana. ? [place], prune, carrot, or tomato juice. ? Baked [...] fish oil, or vitamin B6. ??? Take etkl-pey-rgmhjli and prescription medicines only as told by your health (more content not included)...[facility]01-24-2025 History of Present illness Narrative* Ashutosh [...] exam, discussion and plan. documented in this [facility] Work Phone: 1(183) 478-866601-24-2025 Instructions* Patient Instructions* Denisse Mosher RN - [...] Provided instructions on exercise. documented in this [facility] Work Phone: 1(397) 651-285810-11-2024 Hospital Discharge instructions Patient Education 11/29/2023 09:42:02 [...] you may eat and drink normally. Take qddx-bgk-wufoase and prescription medicines only as told by your health care provider. Let your health care provider know about any medicines that you are taking, including zlns-mgr-pgmefyz medicines, vitamins, herbs, and supplements. Choose a [...] provider. Document Revised: 08/11/2021 Document Reviewed: 08/11/2021 [employer] Patient Education 2023 [employer]. 11/29/2023 09:40:32 Laser Therapy for Kidney Stones [...] including vitamins, herbs, eye drops, creams, and ghna-pin-kmhumri medicines. Any problems you or family members [...] unless your provider tells you to. ?Taking qynb-kmd-ibvmdqo medicines, vitamins, herbs, and supplements. Tests You [...] provider. Document Revised: 10/05/2022 Document Reviewed: 10/05/2022 Elsevier Patient Education 2023 [employer] Follow Up Care 11/26/2022 14:10:52 With:CACHORRO HAHN, Shanna Sánchez, URL Address: [facility] [address] [place] [address]- When: Unknown [facility]24 NotePatient Education Nephrology Laser Therapy [...] including vitamins, herbs, eye drops, creams, and zxwo-kfo-wqverka medicines. ? Any problems you or family [...] your provider tells you to. ? Taking bpzr-xmx-ugduvin medicines, vitamins, herbs, and supplements. Tests ? [...] a strainer to col (more content not included)...[facility]05-08-2024 History of Present illness Narrative* Ashutosh [...] his lab work is done through the OR system Review of Systems Cardiovascular: Positive for [...] Scribe Attestation By signing my name below, Mandy Proctor LPN, Scribe attest that this documentation has [...] exam, discussion and plan. documented in this encounterKindred Hospital Dayton Work Phone: 1(669) 955-230005-08-2024 Instructions* Patient Instructions* Mandy Munoz LPN - [...] mg two times daily documented in this [facility] Work Phone: 1(182) 836-400111-22-2023 History of Present illness Narrative* Ashutosh Ling [...] his lab work is done through the [employer] system Review of Systems Constitutional: Easy bruisability [...] 26.0-26.9,adult 8. Easy bruisability documented in this encounterKindred Hospital [facility] Work Phone: 1(632) 730-714511-22-2023 Instructions* Patient Instructions* Travis Peter MA - [...] time of your visit. documented in this encounterKindred Hospital [facility] Work Phone: 1(201) 677-468909-11-2023 Evaluation note* Encounter Date Diagnosis Assessment Notes Treatment Notes Treatment Clinical Notes Oct, Impacted cerumen of both ears (I CD-10 - H61.23) Cerumen impaction home care material was printed Drink plenty fluids, get plenty of rest. Continue home medications as prescribed. Follow-up with your family physician for any further concerns [employer] Other 07-20-2023 Miscellaneous Notes* Telephone Encounter - [...] called in. The pharmacy is not at [facility]. I will need to call them when its done. Dr Koroma is asking why he is on flomax? Please advise. documented in [facility]St[facility]07-[facility]-2023 Miscellaneous Notes* Telephone Encounter - Deborah Ibarra RN - 09/04/2022 12:51 PM EDT PATIENT INFORMATION Record ID: [id number] Patient Name: [facility]: [facility] [address]: [facility] Attending: David Andrews Center: Urology INSTRUCTIONS SN to remind patient of appointment date, time, location All Clear All Clear SURVEY INFORMATION Medical/Nurse District Fire Chief: Deborah Ibarra 1. Your discharge instructions are [...] (Standard Question) No documented in this encounterSt. Francis Hospital07-14-2023 NoteHNO ID: [id number] Author: Kathrin Dickerson RN Service: Care Management [...] Primary Care Physician Name/Phone: Jame Barraza MD [phone] Patient is medically stable for discharge, on RA, no dc needs. IMM provided on 08/30 by previous CM. Patients to discharge home. SIGNATURE: Kathrin Dickerson RN PATIENT NAME: Olaf Briones DATE: August 31, 2022 TIME: 9:40 AM CONTACT #: [phone] Hospital [facility]07-14-2023 Note HNO ID: [id number] Author: Danyell Morris MD Service: Critical Care Author Type: Anesthesiologist Type: Progress Notes Filed: 08/31/2022 2:15 PM Note Text: SERVICE DATE: 08/31/2022 SERVICE TIME: 8:54 AM SURGICAL INTENSIVE CARE UNIT PROGRESS NOTE BRIEF HPI: Olaf Briones is a 77 year old male with PMHx of recent STEMI on 08/20/22 (s/p JUHI),HTN, HLD, DM, nephrolithiasis, transferred from [facility] for gross hematuria. He is now [...] Primary and SICU discussed patient transfer to [facility]. 08/30:no acute events. Hemodynamically stable. 08/31: No acute events. HDS. Patient is doing well and ready for transfer/discharge per Urology. Subjective INTERVAL EVENTS: Improved Objective MEDICATIONS: Current medications and allergies reviewed. Recommended/planned medication changes discussed in detail in the A/P section below. Please refer to [facility] for list of inpatient medications. VITAL [...] aspirin and ticagrelor Coronary artery disease involving [place] coronary artery of [place] heart Assessment: STEMI on 08/19/2022 s/p JUHI [...] Antiplatelet Medications (From admiss (more content not included)...[facility]07-14-2023 NoteHNO ID: [id number] Author: Prema Feliz MD Service: Urology Author Type: Resident Type: Progress Notes Filed: 08/31/2022 6:45 AM Note Text: [facility] UROLOGY PROGRESS NOTE Name: Olaf Briones Bed: H050 013/H050-13 Date: 08/31/[address] [facility] Urology Service Pager: [phone] ASSESSMENT AND PLAN Olaf Briones is a 77 year old male with PMHx of HTN, HLD, DM, recent STEMI (s/p JUHI, on Brillinta and ASA), nephrolithiasis s/p ESWL , BPH s/p TURP 2001, transferred from [facility] for gross hematuria. Currently with 18Fr 3-way catheter on CBI. Now 3 Days Post-Op s/p cystoscopy, clot evacuation, cystolitholapaxy, TURP. Admitted to SICU postoperatively due to pressor requirements and risk of hyponatremia due to length of TURP. 22Fr [address] hernandez placed introp, on traction and CBI. Transferred to [facility] 08/30. Interval: - AFVSS - Doing [...] order flomax for home. Active Problems Prior [place] POA: Yes - placed on ASA 81, ticagrelor 90 mg BID Nephrolithiasis POA: Yes - Monitor HLD POA: Yes - Home atorva 80 mg DM POA: Yes - SSI HTN POA: Yes - amlodipine 5mg daily, carvedilol 6.25 BID, lisinopril 2.5 mg daily Prema eFliz MD PGY-2 Resident Physician Urology Pager: [phone] For weekend or after hours issues [place] [phone] SUBJECTIVE See above Objective OBJECTIVE Vital Signs BP 114/56 Pulse 61 Temp 36.9 ?C (98.4 ?F) (Oral) Resp 15 Ht 173 cm (5' 8.11 ) Wt 77.9 kg (171 lb 11.8 oz) SpO2 95% BMI 26.03 kg/m? Input and Output Intake/Output Summary (Last 24 hours) at 08/31/2022 0645 Last data filed at 08/31/2022 0600 Gross per 24 hour Intake 6174.7 ml Output 15197 ml Net -5325.3 ml Physical Exam GEN: Alert, NAD EYES: Anicteric CV: Warm and well perfused LUNGS: Unlabored breathing on RA ABD: Soft, appropriately tender : Henrandez catheter present Labs Recent Labs 08/31/22 0024 [...] Feliz MD PGY-2 Resident Physician Urology Pager: [phone] For weekend or after hours issues please page the [place]-call u[place]ager [place] [phone] NoteHNO ID: [id number] Author: Danyell Morris MD Service: Critical Care Author Type: Anesthesiologist Type: Progress Notes Filed: 08/30/2022 3:36 PM Note Text: SERVICE DATE: 08/30/2022 SERVICE TIME: 3:25 PM SURGICAL INTENSIVE CARE UNIT PROGRESS NOTE BRIEF HPI: Olaf Briones is a 77 year old male with PMHx of recent STEMI on 08/20/22 (s/p JUHI),HTN, HLD, DM, nephrolithiasis, transferred from [facility] for gross hematuria. He is now [...] Primary and SICU discussed patient transfer to [facility]. 08/30:no acute events. Hemodynamically stable. Subjective INTERVAL EVENTS: hemodynamically stable. Objective MEDICATIONS: Current medications and allergies reviewed. Recommended/planned medication changes discussed in detail in the A/P section below. Please refer to [email or web address] for list of inpatient medications. VITAL SIGNS: [...] Is Patient Clinically Ready to Transfer to [facility] or SDU?: Yes, transfer to SDU or [facility] today Discharge Planning: To be determined [...] aspirin and ticagrelor Coronary artery disease involving [place] coronary artery of [place] heart Assessment: STEMI on 08/19/2022 s/p JUHI [...] Prophylaxis/Anticoagulants Anticoagulant AND Antiplatel (more content not included)...[facility]07-13-2023 NoteHNO ID: [id number] Author: Prema Feliz MD Service: Urology Author Type: Resident Type: Progress Notes Filed: 08/30/2022 7:12 AM Note Text: [facility] UROLOGY PROGRESS NOTE Name: Olaf Briones Bed: H050 013/H050-13 Date: 08/30/[address] [facility] Urology Service Pager: [phone] ASSESSMENT AND PLAN Olaf Briones is a 77 year old male with PMHx of HTN, HLD, DM, recent STEMI (s/p JUHI, on Brillinta and ASA), nephrolithiasis s/p ESWL , BPH s/p TURP 2001, transferred from [facility] for gross hematuria. Currently with 18Fr [...] discharge today vs tomorrow Active Problems Prior [place] POA: Yes - placed on ASA 81, ticagrelor 90 mg BID Nephrolithiasis POA: Yes - Monitor HLD POA: Yes - Home atorva 80 mg DM POA: Yes - SSI HTN POA: Yes - amlodipine 5mg daily, carvedilol 6.25 BID, lisinopril 2.5 mg daily Prema Feliz MD PGY-2 Resident Physician Urology Pager: [phone] For weekend or after hours issues [place] [phone] SUBJECTIVE See above Objective OBJECTIVE Vital Signs BP 111/56 Pulse 61 Temp 36.7 ?C (98.1 ?F) (Axillary) Resp 12 Ht 173 cm (5' 8.11 ) Wt 84 kg (185 lb 3 oz) SpO2 96% BMI 28.07 kg/m? Input and Output Intake/Output Summary (Last 24 hours) at 08/30/2022 0558 Last data filed at 08/30/2022 0500 Gross per 24 hour Intake 6400 ml Output 10194 ml Net -4150 ml Physical Exam GEN: [...] Feliz MD PGY-2 Resident Physician Urology Pager: [phone] For weekend or after hours issues please page the [place] urology [place] [phone]23 NoteHNO ID: [id number] Author: Ary Frazier RN Service: Care Management [...] oxygen, or cpaps at home. Had recent [place] in past. Cardiology on consult. No current [...] 29, 2022 TIME: 12:11 PM PAGER/CONTACT #: [phone] [facility]2023 NoteHNO ID: [id number] Author: Danyell Morris MD Service: Critical Care Author Type: Anesthesiologist Type: Progress Notes Filed: 08/29/2022 3:08 PM Note Text: SERVICE DATE: 08/29/2022 SERVICE TIME: 11:28 AM SURGICAL INTENSIVE CARE UNIT PROGRESS NOTE BRIEF HPI: Olaf Briones is a 77 year old male with PMHx of recent STEMI on 08/20/22 (s/p JUHI),HTN, HLD, DM, nephrolithiasis, transferred from [facility] for gross hematuria. He is now [...] Primary and SICU discussed patient transfer to [facility]. Subjective INTERVAL EVENTS: Improved Objective MEDICATIONS: Current medications and allergies reviewed. Recommended/planned medication changes discussed in detail in the A/P section below. Please refer to [email or web address] for list of inpatient medications. VITAL SIGNS: [...] Is Patient Clinically Ready to Transfer to [facility] or SDU?: Yes, transfer to SDU or [facility] today Discharge Planning: To be determined [...] aspirin and ticagrelor Coronary artery disease involving [place] coronary artery of [place] heart Assessment: STEMI on 08/19/2022 s/p JUHI Plan - Continue dual antiplatelet therapy with aspirin and ticagrelor Gastrointestinal Malnutrition of mild degree (HCC) Assessment: Patient on liquid diet. Plan: - Advance to regular diet Endocrinology Type 2 diabetes mellitus without complication, without long-term current use of insulin ([facility]) Assessment: Patient is not on home medications, [...] Urology AND SICU ok for transfer to [facility] Medication and Non-Pharmacologic VTE Prophylaxis/Anticoagulants Anticoagulant AND Antiplatelet Medica (more content not included)...[facility]07-12-2023 NoteHNO ID: [id number] Author: David Andrews MD Service: Urology Author Type: Physician Type: Progress Notes Filed: 08/29/2022 7:09 PM Note Text: [facility] UROLOGY PROGRESS NOTE Name: Olaf Briones Bed: H050 013/H050-13 Date: 08/29/[address] [facility] Urology Service Pager: [phone] ASSESSMENT AND PLAN Olaf Briones is a 77 year old male with PMHx of HTN, HLD, DM, recent STEMI (s/p JUHI, on Brillinta and ASA), nephrolithiasis s/p ESWL , BPH s/p TURP 2001, transferred from [facility] for gross hematuria. Currently with 18Fr [...] EF 55% -Encourage IS -Continue telemetry on [facility] #GI - -Diet: Regular diet -Colace, [...] - routine #Disposition - pending course, to [facility] today if SICU agrees it is appropriate. Plan for discharge tomorrow. Active Problems Prior [place] POA: Yes - placed on ASA 81, ticagrelor 90 mg BID Nephrolithiasis POA: Yes - Monitor HLD POA: Yes - Home atorva 80 mg DM POA: Yes - SSI HTN POA: Yes - amlodipine 5mg daily, carvedilol 6.25 BID, lisinopril 2.5 mg daily Prema Feliz MD PGY-2 Resident Physician Urology Pager: [phone] For weekend or after hours issues [place] [phone] CHIEF RESIDENT ADDENDUM POD#1 s/p cysto, TURP, [...] 08/29/2022 0700 Gross per 24 hour Intake 52600.5 ml Output 15406 ml Net 5853.5 ml Gen: No apparent [...] Gt Mcgowan MD Resident PGY-6 Urology [facility] Urologic and Kidney Loop [facility] Please page Dr. Feliz with any patient [...] 08/29/2022 0700 Gross per 24 hour Intake 74594.5 ml Output 30563 ml Net 5853.5 ml Physical Exam GEN: [...] Feliz MD PGY-2 Resident Physician Urology Pager: [phone] For weekend or after hours issues [place] [phone] [facility] STAFF PHYSICIAN NOTE OF PERSONAL INVOLVEMENT IN CARE I have reviewed the progress note obtained and documented by the resident (more content not included)...[facility]07-11-2023 NoteHNO ID: [id number] Author: Molly Rosado APRN.BARREL BRIDGE ASSEMBLER Service: ? Author Type: Nurse Lithograph Press Feeder Type: Anesthesia Procedure Notes Filed: 08/28/2022 7:27 PM Note Text: ANESTHESIOLOGY PROCEDURE NOTE PIV General Information Procedure Start Time/Medication Administration: 08/28/2022 7:26 PM Staffing BARREL BRIDGE ASSEMBLER: Molly Rosado APRN.BARREL BRIDGE ASSEMBLER Preparation Sterility Preparation: hand hygiene performed prior [...] August 28, 2022 TIME: 7:26 PM CSN: [id number] [facility]23 NoteHNO ID: [id number] Author: Molly Rosado APRN.BARREL BRIDGE ASSEMBLER Service: ? Author Type: Nurse Lithograph Press Feeder Type: Anesthesia Procedure Notes Filed: 08/28/2022 6:31 PM Note Text: ANESTHESIOLOGY PROCEDURE NOTE Airway General Information Procedure Start Time/Medication Administration: 08/28/2022 6:10 PM Patient location during procedure: OR Timeout Performed Pre-procedure: timeout performed Consent Obtained: Yes Patient identity confirmed: arm band and patient Staffing BARREL BRIDGE ASSEMBLER: Molly Rosado APRN.CRNA Indications and Patient Condition [...] August 28, 2022 TIME: 6:31 PM CSN: [id number] [facility]-2023 NoteHNO ID: [id number] Author: Prema Feliz MD Service: Urology Author Type: Resident Type: Progress Notes Filed: 08/28/2022 9:47 PM Note Text: [facility] UROLOGY PROGRESS NOTE Name: Olaf Briones Bed: H050 013/H050-13 Date: 08/28/[address] [facility] Urology Service Pager: [phone] ASSESSMENT AND PLAN Olaf Briones is a 77 year old male with PMHx of HTN, HLD, DM, recent STEMI (s/p JUHI, on Brillinta and ASA), nephrolithiasis s/p ESWL , BPH s/p TURP 2001, transferred from [facility] for gross hematuria. Currently with 18Fr [...] pending course, in SICU Active Problems Prior [place] POA: Yes - placed on ASA 81, ticagrelor 90 mg BID Nephrolithiasis POA: Yes - Monitor HLD POA: Yes - Home atorva 80 mg DM POA: Yes - SSI HTN POA: Yes - amlodipine 5mg daily, carvedilol 6.25 BID, lisinopril 2.5 mg daily Prema Feliz MD PGY-2 Resident Physician Urology Pager: [phone] For weekend or after hours issues [place] [phone] SUBJECTIVE See above Objective OBJECTIVE Vital Signs BP 112/52 Pulse 69 Temp 36.9 ?C (98.4 ?F) (Oral) Resp 18 Ht 173 cm (5' 8.11 ) Wt 75.5 kg (166 lb 7.2 oz) SpO2 97% BMI 25.23 kg/m? Input and Output Intake/Output Summary (Last 24 hours) at 08/28/20221955 Last data filed at 08/28/2022 1830 Gross per 24 hour Intake 10621 ml Output 33840 ml Net -1875 ml Physical Exam GEN: [...] Feliz MD PGY-2 Resident Physician Urology Pager: [phone] For weekend or after hours issues please page the [place]-call urology [place] [phone]23 NoteHNO ID: [id number] Author: Prema Feliz MD Service: Urology Author Type: Resident Type: Progress Notes Filed: 08/28/2022 8:02 AM Note Text: [facility] UROLOGY PROGRESS NOTE Name: Olaf Briones Bed: H050 013/H050-13 Date: 08/28/[address] [facility] Urology Service Pager: [phone] ASSESSMENT AND PLAN Olaf Briones is a 77 year old male with PMHx of HTN, HLD, DM, recent STEMI (s/p JUHI, on Brillinta and ASA), nephrolithiasis s/p ESWL remote, BPH s/p TURP 2001, transferred from [facility] for gross hematuria. Currently with 18Fr [...] for cysto, fulguration today Active Problems Prior [place] POA: Yes - placed on ASA 81, ticagrelor 90 mg BID Nephrolithiasis POA: Yes - Monitor HLD POA: Yes - Home atorva 80 mg DM POA: Yes - SSI HTN POA: Yes - amlodipine 5mg daily, carvedilol 6.25 BID, lisinopril 2.5 mg daily Essential elements of above plan discussed with staff, Dr. Juliana Feliz MD PGY-2 Resident Physician Urology Pager: [phone] For weekend or after hours issues [place] [phone] SUBJECTIVE See above Objective OBJECTIVE Vital Signs BP 116/57 Pulse 69 Temp 36.5 ?C (97.7 ?F) (Oral) Resp 18 Ht 173 cm (5' 8.11 ) Wt 75.5 kg (166 lb 7.2 oz) SpO2 97% BMI 25.23 kg/m? Input and Output Intake/Output Summary (Last 24 hours) at 08/28/2022 0722 Last data filed at 08/28/2022 0716 Gross per 24 hour Intake 70854.5 ml Output 22851 ml Net -26237.5 ml Physical Exam GEN: Alert, NAD EYES: Anicteric CV: Warm and well perfused LUNGS: Unlabored breathing on RA ABD: Soft, appropriately tender : Hernandez catheter present Labs Recent Labs 08/27/22 0710 WBC 16.24* HB 13.4 HCT 38.5* PLT 214 NA 140 K 4.3 CHLOR 105 CO2 22 BUN 17 CREAT 0.79 GLUC 197* Imaging Reviewed Prema Feliz MD PGY-2 Resident Physician Urology Pager: [phone] For weekend or after hours issues please page the [place]-call urology [place]ager [place] [phone]2023 NoteHNO ID: [id number] Author: Naomy Adkins MD Service: Urology Author [...] antispasmodics (ditropan, belladonna and opium suppositories, levsin, etc).[facility]07-09-2023 Evaluation + Plan noteExtracted from:Title:Urology Consult and H&P 2Author:Alexandre KOROMA MD PDate:08/26/22 Patient: OLAF BRIONES Age: 77 years Sex: Male : 1945 Associated Diagnoses: None Author: Alexandre KOROMA MD Chief Complaint 08/26/2022 17:07 EDT pt to ER with c/o lower pelvic pain and blood clots in urine that started saturday. history of kidney stones. just had a stent placed last saturday at pending sale to [facility]. sees dr ivory Thank for consultation [...] BPH with urinary obstruction / SNOMED CT 3321919219 / Confirmed Kidney stone / SNOMED CT 346429284 / Confirmed Weak urinary stream / SNOMED CT 498594554 / Confirmed Microscopic hematuria / SNOMED CT 175174833 / Confirmed Diabetes / SNOMED CT 211215684 / Confirmed Hypertension / SNOMED CT 1830234177 / Confirmed Prostatitis / SNOMED CT 75353444 / Confirmed BPH without urinary obstruction / SNOMED CT 3489733261 / Confirmed Gross hematuria / SNOMED CT 888966359 / Confirmed Asymptomatic microscopic hematuria / SNOMED CT 7452974516 / Confirmed, Active Problems (10) Asymptomatic microscopic hematuria BPH with urinary obstruction BPH without urinary obstruction Diabetes Gross hematuria Hypertension Kidney stone Microscopic hematuria Prostatitis Weak urinary stream Histories Past Medical History: No active or resolved past medical history items have been selected or recorded. Family History: Hypertension Father Procedure history: Cystoscopy (21210441) on 08/18/2013 at 68 Years. Comments: 10/02/2018 16:11 ROLA - Katie Rogers MA 11/08/200904/2006 TURP - Transurethral resection of prostate ([id number]) in 2006 at 61 Years. Urodynamics (568075237) in 2006 at 61 Years. Transrectal biopsy of prostate using ultrasound (US) guidance (0543283399) in 2005 at 60 Years. ESWL - Extracorporeal shockwave lithotripsy for renal calculus (036866123) in 2000 at 55 Years. Comments: 10/02/2018 [...] Normal range of motion. Integumentary: Warm, Dry, [place]. Neurologic: Alert, Oriented, Normal sensory. Psychiatric: Cooperative, [...] % HI Lymph Auto 6.1 % LOW [place] Auto 4.9 % Eos Auto 0.9 % Basophil Auto 0.5 % Neutro Absolute 13.5 E9/L HI Lymph Absolute 0.9 E9/L LOW [place] Absolute 0.8 E9/L Eos Absolute 0.1 E9/L [...] and Plan Diagnosis Abnormal CT scan, bladder (JKX56-GC R93.41, Working, Medical). Anticoagulated by anticoagulation treatment (BBT24-YI Z79.01, Working, Medical). BPH with obstruction/lower urinary tract symptoms (DKG73-NF N40.1, Working, Medical). Gross hematuria (JEP84-ZO R31.0, Discharge, Medical). S/P TURP (status post transurethral resection of prostate) (VRB25-SZ Z90.79, Working, Medical). Urinary retention (OXO01-LW R33.9, Discharge, Medical). Course: Worsening, Viewed CT [...] patient and his . This is a highrisk procedure. The difficulty as we cannot stop his anticoagulants secondary to the recent coronary artery stenting. Currently his hemoglobin hematocrit are acceptable but this needs monitored. We will discuss with Dr. Salguero as well, admitting hospitalist. Antibiotic prophylaxis will also be recommended. N.p.o. after midnight.Addendum by Alexandre KOROMA MD on August 26, 2022 22:22 EDTRepeat hand irrigation of multiple clots over 20 min. was required approximately 15 minutes after Ihad just hand irrigated for approximately half an [...] process which is currently bleeding, the possibility ofneeding to stop his Brilinta is present in order to get him through the postoperative period. This would carry with it a significant increased risk of clotting off his coronary stent. I feel that the patient's current status warrants tertiary care center evaluation, treatment and close monitoring with the availability of specialists we do not currently have available here at [facility] continuously. I discussed this extensively with the patient. Although disappointed, he understands the predicament. I would recommend tertiary care transfer after discussing all this with Dr. Salguero from internalmedicine/hospitalist service. Extracted from:Title:ED NoteAuthor:Abdulkadir Villatoro, Keith HDate:08/26/22 1. Urinary retention (R33.9: Retention of urine, unspecified) 2. Gross hematuria (R31.0: Gross hematuria) 3. Urinary tract infection (N39.0: Urinary tract infection, site not specified) Orders: ceftriaxone + Sodium Chloride 0.9% intravenous solution 50 mL, 1,000 mg = 1 EA, IV Piggyback, Once,Stop date 08/26/22 19:18:00 EDT, STAT, Start date [...] Date:11/02/2022 08:30:00 AM Scheduled Provider:Shanna IVORY MD Location:[facility] Appointment Type:URO Office Visit [facility]07-05-2023 Hospital Discharge instructions Additional Instructions DISCHARGE [...] doctor or pharmacist, without first calling the shredded filler cutter operator who implanted the stent. If you require [...] weight lifting, stair steppers, etc. until the shredded filler cutter operator approves these activities. Check with the shredded filler cutter operator on your first follow-up visit. CALL YOUR PHYSICIAN at [phone]: -If bleeding should occur from the catheter insertion site- apply pressure to the site then immediately call us. -Report any fever, redness, drainage, increased swelling, or firmness at the catheter insertion site. Some bruising or slight swelling may be present at the time of discharge. -Should arm or leg become cold, numb, white, or blue, contact the shredded filler cutter operator immediately. -IF you should experience episodes of [...] is recommended. Please call Central Scheduling at [phone] to schedule your appointment.] The attending shredded filler cutter operator or [facility] nurse clinician should provide you with specific instructions regarding activity, diet, medications, and further follow up for you. Follow the medication instructions provided on your discharge. If the dosages and instructions on this sheet differ from the dosage and instructions on the bottle, follow the instructions on the bottle. [facility] is not responsible for incorrect prescription information provided by the patient during their visit. Do not stop your medications without consulting your health care provider. Please take the list with you to your next doctor's appointment.[facility] Work Phone: 1(244) 796-461607-04-2023 Consult note Author Juanito Barney [facility] August 21, 2022 11:41amNote Date/TimeJuly 2022 11:41amBrian Ville [id number] Pulmonology Consult Note Signed Patient: Olaf Briones MR#: [id number] : 1945 Acct:[id number] Age/Sex: 77 / M Adm Date: 3 Loc: Room: 3B0469-5 Type: REG SDC Attending Dr: Steven Zamora [...] ST elevation in the inferior lateral leads. District Fire Chief was activated, patient received PCI to RCA. Heart block resolved following intervention.No events overnight. This morning, patient awake and [...] 08/21/22 10:00 08/21/22 10:00 08/21/22 10:00 Narrative: HIGH FREQUENCY MILL OPERATOR: Alert and oriented x3. No focal deficits. [...] found to have inferior lateral ST elevation [place] along with complete heart block. District Fire Chief was activated, patient received PCI to RCA. Patient is currently doing much better with no signs or symptoms of heart block,he is on room air. Optimizing cardiac meds as per cardiology. Glycemic control DVT prophylaxis Discussed with nursing staff Documented By: Juanito Barney MD 08/21/22 113 6 Signed By: <Electronically signed by Juanito Barney MD> 08/21/22 1141 [facility] Work Phone: [phone]) 354-350107-04-2023 Progress note Author Elpidio Andres [facility] August 21, 2022 8:11amNote Date/TimeJuly 2022 8:11am[address] [place] [address] Cardiology Progress Note Signed Patient: Olaf Briones MR#: [id number] : 1945 Acct:[id number] Age/Sex: 77 / M Adm Date: 3 Loc: Room: [address] [place] [address] Type: REG SDC Attending Dr: Steven Zamora DO Copies to: ~ Date of Service: 08/21/2022 Subjective Principal diagnosis: Acute inferolateral STEMI status post primary PCI to RCA Interval history: Mr. Briones is doing well this morning. No residual chest pain or other anginal symptoms. Cardiac rhythm has been normal sinus on telemetry monitoring. No evidence of recurrent heart block since primaryPCI. No problems at right groinsite. Some pink-tinged urine but the patient does note he has a history of nephrolithiasis and this is not unusual for him. No other complaints or issues presently. Thepatient has not yet ambulated. Exam Physical Exam [...] % (Auto) 64.1 Lymph % (Auto) 26.2 [place] % (Auto) 7.9 Eos % (Auto) 1.3 Baso % (Auto) 0.5 Nucleat RBC Rel Count 0.1 Neut # (Auto) 6.9 Lymph # (Auto) 2.8 [place] # (Auto) 0.9 H Eos # (Auto) [...] MPV Neut % (Auto) Lymph % (Auto) [place] % (Auto) Eos % (Auto) Baso % (Auto) Nucleat RBC Rel Count Neut # (Auto) Lymph # (Auto) [place] # (Auto) Eos # (Auto) Baso # [...] MPV Neut % (Auto) Lymph % (Auto) [place] % (Auto) Eos % (Auto) Baso % (Auto) Nucleat RBC Rel Count Neut # (Auto) Lymph # (Auto) [place] # (Auto) Eos # (Auto) Baso # (Auto) Monocyte Dist Width PT INR APTT PHA Creatinine Clear Sodium Potassium Chloride Carbon Dioxide Anion Gap BUN Creatinine Est GFR (CKD-EPI) Glucose Calcium Total Creatine Kinase Troponin I High Sens 9010.4 H* 50054.3 H* 16309.9 H* B-Natriuretic Peptide Triglycerides Cholesterol LDL Cholesterol, Calc VLDL Cholesterol HDL Cholesterol Cholesterol/HDL Ratio 07/06/1008/21/22 08/21/22 05:30 05:30 05:30 Corrected WBC 13.6 H Uncorrected WBC Count 13.6 H RBC 4.66 Hgb 14.6 Hct 42.7 MCV 91.6 MCH 31.4 MCHC 34.3 RDW 13.5 Plt Count 171 MPV 9.5 Neut % (Auto) 85.4 Lymph % (Auto) 8.2 [place] % (Auto) 6.1 Eos % (Auto) 0.1 Baso % (Auto) 0.2 Nucleat RBC Rel Count 0.0 Neut # (Auto) 11.7 H Lymph # (Auto) 1.1 [place] # (Auto) 0.8 Eos # (Auto) 0.0 Baso # (Auto) 0.0 Monocyte Dist Width PT INR APTT PHA Creatinine Clear 74.81 Sodium 138 Potassium 3.8 Chloride 103 Carbon Dioxide 27.1 Anion Gap 11.7 BUN 12 Creatinine 0.71 Est GFR (CKD-EPI) > 60.0 Glucose 162 H Calcium 9.4 Total Creatine Kinase Troponin I High Sens 31902.9 H* B-Natriuretic Peptide Triglycerides 124 Cholesterol 132 [...] evolution today [facility] (2) Heart block: Assessment/Problem Details: Resolved with cheondoism of flow to the dominant right coronary [...] signed by Elpidio Andres MD> 08/21/22 0811 [facility] Work Phone: 1(558) 226-765007-03-2023 History and physical note Author Steven Zamora [facility] August 20, 2022 6:29pmNote Date/TimeJuly 2022 6:24pm[place]visa[place] [address] Cardiology H&P Signed with Addenda Patient: Olaf Briones MR#: [id number] : 1945 Acct:[id number] Age/Sex: 77 / M Adm Date: 3 Loc: Room: [address] [place] [address] Type: REG SDC Attending Dr: Steven Zamora DO Copies to: NON STAFF Steven Zamora DO~ ADDENDUM1 Impression: Inferolateral STEMI with change in complete heart block Plan: Proceed with emergent cath and PCI. A total of 60 minutes nonprocedural critical care time were devoted to the ER staff, review of ECG, District Fire Chief staff, nursing staff, both patient and family both pre and post procedurally Addendum Documented By: Steven Zamora DO 08/20/221828 Addendum Signed By: <Electronically signed by Steven Zamora DO> 08/20/221828 Date of Service: 08/20/2022 Cardiology HPI History of Present Illness Chief complaint: Inferolateral STEMI HPI: Mr. Briones is a 77 year old male admitted through the emergency room with new onset severe angina andnear syncope, initial ECG revealed complete heart block and inferolateral ST elevation from the squad. Upon arrival at 1621-second ECG (first ECG in the ER) revealed similar inferior lateral STEMI criteria and transient complete heart block. Discussed case with ER attending, reviewed ECGs; Cath Labteam activated, half amp of atropine ordered in addition to routine upstream antiplatelet and Antithrombin therapies. Patient arrived at the [facility] at 1659 underwent first balloon activation at [...] and no additional complaints, except as documented [facility] Medical History (Updated 08/20/22 @ 16:41 by [...] x10E3/uL Lymph # (Auto) 2.8 (1.00-4.8) x10E3/uL [place] # (Auto) 0.9 H (0.0-0.8) x10E3/uL Eos [...] 25.1 Documented By: Steven Zamora DO 08/20/22 7010 Signed By: <Electronically signed by Steven Zamora DO> 08/20/22 1827 [facility] Work Phone: 1(107) 141-717607-03-2023 [facility] [place] [place] Procedure note [facility]07-03-2023 History general Narrative - Reported * Type Description Date Surgical History TURP 2022 Hospitalization History heart attack august 20 2022 [employer] Other 09-09-2022 Hospital Discharge instructions Patient Education [...] urethra. Follow these instructions at home: Take cmvr-pxa-dodwsia and prescription medicines only as told by [...] 02/04/2006 Document Revised: 12/30/2018 Document Reviewed: 03/11/2017 [employer] Patient Education 2020 [employer]. Follow Up Care 10/21/2020 08:48:14 With:CACHORRO HAHN, Shanna Sánchez, URL Address: [address] [place] [address]- When: Unknown [facility] Franca consult note Author Juanito Barney [facility] August 21, 2022 11:41amNote Date/TimeJuly 2022 11:41amBrian [place] [id number] Pulmonology Consult Note Signed Patient: Olaf Briones MR#: [id number] : 1945 Acct:[id number] Age/Sex: 77 / M Adm Date: 3 Loc: Room: [address] [place] [address] Type: REG SDC Attending Dr: Steven Zamora [...] ST elevation in the inferior lateral leads. District Fire Chief was activated, patient received PCI to RCA. Heart block resolved following intervention.No events overnight. This morning, patient awake and [...] 08/21/22 10:00 08/21/22 10:00 08/21/22 10:00 Narrative: HIGH FREQUENCY MILL OPERATOR: Alert and oriented x3. No focal deficits. [...] found to have inferior lateral ST elevation [place] along with complete heart block. District Fire Chief was activated, patient received PCI to RCA. Patient is currently doing much better with no signs or symptoms of heart block,he is on room air. Optimizing cardiac meds as per cardiology. Glycemic control DVT prophylaxis Discussed with nursing staff Documented By: Juanito Barney MD 08/21/22 113 6 Signed By: <Electronically signed by Juanito Barney MD> 08/21/22 1141 [facility] Work Phone: Discharge summary Author Steven Zamora [facility] August 22, 2022 3:21pmNote Date/TimeJuly 2022 3:17pmSalvisa[place] [address] Discharge Summary Signed Patient: Olaf Briones MR#: [id number] : 1945 Acct:[id number] Age/Sex: 77 / M Adm Date: 3 Loc: Room: [address] [place] [address]: Steven Zamora DO Copies to: [...] Dr. Ling in the next 2 to 4weeks. 30 minutes of dischargeplanning, follow-up arrangements, discussion regarding residual LAD di sease and further follow-up. We will hold off going back to his long cutting routine for at least 7days and counseled him on appropriate hydration especially [...] Sodium 138, Potassium 3.8, Chloride 105, Carbon Ixngcyj70.0, Anion Gap 10.8, BUN 20, Creatinine 0.79, Est GFR (CKD- EPI) > 60.0, Glucose 133 H, Calcium 9.0 08/22/22 04:22: Corrected WBC 8.8, Uncorrected WBC Count 8.8, RBC 4.43, Hgb 13.9, Hct 41.1, MCV 92.8, MCH 31.5, MCHC 33.9, RDW 13.7, Plt Count 162, MPV 9.6, Neut % (Auto) 72.5, Lymph % (Auto) 15.9, [place] % (Auto) 9.7, Eos % (Auto) 1.6, Baso % (Auto) 0.3, Nucleat RBC Rel Count 0.1, Neut # (Auto) 6.4,Lymph # (Auto) 1.4, [place] # (Auto) 0.9 H, Eos # (Auto) [...] stent occurs in the first 2-3 weeks afterimplantation, you will need to take anticoagulants for at least 12-18 months. ANTICOAGULATION MEDICATION Aspirin 81mg once a day, Ticagrelor (Brilinta) 90mg twice a day STATIN MEDICATION Atorvastatin (Lipitor) 80 mg Drug-Eluting Stent (JUHI) DO NOT discontinue Brilinta/Aspirin during the first few months regardless of what you are advised by your family doctor or pharmacist, without first calling the shredded filler cutter operator who implanted the stent. If you require [...] weight lifting, stair steppers, etc. until the shredded filler cutter operator approves these activities. Check with the shredded filler cutter operator on your first follow-up visit. CALL YOUR PHYSICIAN at [phone]: -If bleeding should occur from the catheter insertion site- apply pressure to the site then immediately call us. -Report any fever, redness, drainage, increased swelling, or firmness at the catheter insertion site. Some bruising or slight swelling may be present at the time of discharge. -Should arm or leg become cold, numb, white, or blue, contact the shredded filler cutter operator immediately. -IF you should experience episodes of angina, e.g. chest discomfort, heaviness, tightness, pressureburning with or without radiation to the neck, jaw, arms or back- use 1 Nitrostat tablet under yourtongue every 5-10 minutes and up to three tablets. IF NO RELIEF, CALL 911 or GO TO THE NEAREST EMERGENCY ROOM. -Please notify our office if you have recurrent angina. -[Cardiac Rehab Education Provided. Participation in the Cardiopulmonary Rehabilitation program is recommended. Please call Central Scheduling at [phone] to schedule your appointment.] The attending shredded filler cutter operator or [facility] nurse clinician should provide you with specific instructions regarding activity, diet, medications, and further follow up for you. Follow the medication instructions provided on your discharge. If the dosages and instructions on this sheet differ from the dosage and instructions on the bottle, follow the instructions on the bottle. [facility] is not responsible for incorrect prescription information provided by thepatient during their visit. Do not stop your medications without consulting your health care provider. Please take the list with you to your next doctor's appointment. Instructions: Coronary Angioplasty (DC), Coronary Stenting (DC), Angina (DC), Chest Pain (DC), DrugEluting Stents Prescriptions: New atorvastatin 80 mg Tablet [...] signed by Steven Zamora DO> 08/22/22 1521 [facility] Work Phone: Evaluation + Plan note Future Appointments Appointment Date:11/02/2022 08:30:00 AM Scheduled Provider:Shanna IVORY MD Location:[facility] Appointment Type:URO Office Visit [facility] evaluation + Plan note Future Appointments Appointment Date:03/27/2024 08:45:00 AM Scheduled Provider:Shanna IVORY MD Location:[facility] Appointment Type:URO Office Visit [facility] evaluation + Plan note Future Appointments Appointment Date:04/02/2025 08:00:00 AM Scheduled Provider:Shanna IVORY MD Location:[facility] Appointment Type:URO Office Visit [facility] evaluation note* Diagnosis Onset Date Resolution Status Heart block acuteST elevation (STEMI) myocardial infarctionacuteSyncopeacute [facility] Work Phone: Evaluation note* Diagnosis Arteriosclerotic cardiovascular disease- Primary Unspecified cardiovascular disease Abnormal EKG Nonspecific abnormal electrocardiogram (ECG) (EKG) Mixed hyperlipidemia Primary hypertension Unspecified essential hypertension Post PTCA Postsurgical percutaneous transluminal coronary angioplasty status Essential hypertension Unspecified essential hypertension BMI 26.0-26.9,adult Easy bruisability Other symptoms involving skin and integumentary tissues documented in this encounter [facility] Work Phone: Evaluation note* Diagnosis Essential hypertension- Primary Unspecified essential hypertension Arteriosclerotic cardiovascular disease Unspecified cardiovascular disease Abnormal EKG Nonspecific abnormal electrocardiogram (ECG) (EKG) Mixed hyperlipidemia Post PTCA Postsurgical percutaneous transluminal coronary angioplasty status BMI 26.0-26.9,adult Never smoked tobacco documented in this encounter [facility] Work Phone: Evaluation note* Diagnosis Arteriosclerotic cardiovascular disease- Primary Unspecified cardiovascular disease Post PTCA Postsurgical percutaneous transluminal coronary angioplasty status Mixed hyperlipidemia Abnormal EKG Nonspecific abnormal electrocardiogram (ECG) (EKG) Essential hypertension Unspecified essential hypertension Easy bruisability Other symptoms involving skin and integumentary tissues Never smoked tobacco BMI 28.0-28.9,adult documented in this encounter [facility] Work Phone: Evaluation note* Diagnosis Coronary artery disease involving [place] coronary artery of [place] heart without angina pectoris (CMS/HCC)- Primary Gout, unspecified cause, unspecified chronicity, unspecified site Kidney stones Calculus of kidney Primary hypertension (CMS/HCC) Unspecified essential hypertension Routine general medical examination at health care facility- Primary Routine general medical examination at a health care facility Abnormal glucose tolerance test Impaired glucose tolerance test Benign essential hypertension ([facility]/HCC) Essential hypertension, benign Nocturia Medicare annual wellness visit, initial Coronary artery disease involving [place] coronary artery of [place] heart without angina pectoris ([facility]/HCC) Primary hypertension ([facility]/HCC) Unspecified essential hypertension Type 2 diabetes mellitus without complication, without long-term current use of insulin ([facility]/HCC) Need for hepatitis C screening test Special screening examination for other specified viral diseases Dyspnea on exertion- Primary Other dyspnea and respiratory abnormality Coronary artery disease of [place] artery of [place] heart with stable angina pectoris ([facility]/HCC) Chest pain due to CAD ([facility]/HCC) Atherosclerosis of aorta (I70.0) Atherosclerosis of aorta Routine general medical examination at [facility] facility- Primary Routine general medical examination at a [facility] facility Benign essential hypertension ([facility]/HCC) Essential hypertension, benign Nocturia Medicare annual wellness visit, initial Type 2 diabetes mellitus without complication, without long-term current use of insulin ([facility]) Mixed hyperlipidemia ([facility]) Mixed hyperlipidemia Sciatica, unspecified laterality Coronary artery disease of [place] artery of [place] heart with stable angina pectoris ([facility]) documented in this encounter [facility] noteNo assessment information availableLakehealth [facility] Work Phone: History and physical note Author Steven Zamora [facility] August 20, 2022 6:29pmNote Date/TimeJuly 2022 6:24pm[place] [address] Cardiology H&P Signed with Addenda Patient: Olaf Briones MR#: [id number] : 1945 Acct:[id number] Age/Sex: 77 / M Adm Date: 3 Loc: Room: [address] [place] [address] Type: REG SDC Attending Dr: Steven Zamora DO Copies to: NON STAFF Steven Zamora DO~ ADDENDUM1 Impression: Inferolateral STEMI with change in complete heart block Plan: Proceed with emergent cath and PCI. A total of 60 minutes nonprocedural critical care time were devoted to the ER staff, review of ECG, District Fire Chief staff, nursing staff, both patient and family both pre and post procedurally Addendum Documented By: Steven Zamora DO 07/05/10 1828 Addendum Signed By: <Electronically signed by Steven Zamora DO> 08/20/221828 Date of Service: 08/20/2022 Cardiology HPI History of Present Illness Chief complaint: Inferolateral STEMI HPI: Mr. Briones is a 77 year old male admitted through the emergency room with new onset severe angina andnear syncope, initial ECG revealed complete heart block and inferolateral ST elevation from the squad. Upon arrival at 1621-second ECG (first ECG in the ER) revealed similar inferior lateral STEMI criteria and transient complete heart block. Discussed case with ER attending, reviewed ECGs; Cath Labteam activated, half amp of atropine ordered in addition to routine upstream antiplatelet and Antithrombin therapies. Patient arrived at the [facility] at 1659 underwent first balloon activation at [...] and no additional complaints, except as documented [facility] Medical History (Updated 08/20/22 @ 16:41 by [...] x10E3/uL Lymph # (Auto) 2.8 (1.00-4.8) x10E3/uL [place] # (Auto) 0.9 H (0.0-0.8) x10E3/uL Eos [...] <Electronically signed by Steven Zamora DO> 08/20/22 881 [facility] Work Phone: History of Present [...] notify me with change in cardiac status [facility] 250 DO Work Phone: History of [...] notify me with change in cardiac status [facility] 250 DO Work Phone: History of [...] he developed hematuria ultimately went to the [facility] where he underwent TURP and removal [...] me change in cardiac status or symptoms [facility] 250 DO Work Phone: Hospital course Narrative No data available for this section [facility] Hospital Discharge instructions No data available for this section [facility] No data available for this section [facility] progress note Author Elpidio Andres [facility] August 21, 2022 8:11amNote Date/TimeJuly 2022 8:11amSal[place] [address] Cardiology Progress Note Signed Patient: Olaf Briones MR#: [id number] : 1945 Acct:[id number] Age/Sex: 77 / M Adm Date: 3 Loc: Room: [address] [place] [address] Type: REG SDC Attending Dr: Steven Zamora DO Copies to: ~ Date of Service: 08/21/2022 Subjective Principal diagnosis: Acute inferolateral STEMI status post primary PCI to RCA Interval history: Mr. Briones is doing well this morning. No residual chest pain or other anginal symptoms. Cardiac rhythm has been normal sinus on telemetry monitoring. No evidence of recurrent heart block since primaryPCI. No problems at right groinsite. Some pink-tinged urine but the patient does note he has a history of nephrolithiasis and this is not unusual for him. No other complaints or issues presently. Thepatient has not yet ambulated. Exam Physical Exam [...] % (Auto) 64.1 Lymph % (Auto) 26.2 [place] % (Auto) 7.9 Eos % (Auto) 1.3 Baso % (Auto) 0.5 Nucleat RBC Rel Count 0.1 Neut # (Auto) 6.9 Lymph # (Auto) 2.8 [place] # (Auto) 0.9 H Eos # (Auto) [...] MPV Neut % (Auto) Lymph % (Auto) [place] % (Auto) Eos % (Auto) Baso % (Auto) Nucleat RBC Rel Count Neut # (Auto) Lymph # (Auto) [place] # (Auto) Eos # (Auto) Baso # [...] MPV Neut % (Auto) Lymph % (Auto) [place] % (Auto) Eos % (Auto) Baso % (Auto) Nucleat RBC Rel Count Neut # (Auto) Lymph # (Auto) [place] # (Auto) Eos # (Auto) Baso # (Auto) Monocyte Dist Width PT INR APTT PHA Creatinine Clear Sodium Potassium Chloride Carbon Dioxide Anion Gap BUN Creatinine Est GFR (CKD-EPI) Glucose Calcium Total Creatine Kinase Troponin I High Sens 9010.4 H* 34844.3 H* 04114.9 H* B-Natriuretic Peptide Triglycerides Cholesterol LDL Cholesterol, Calc VLDL Cholesterol HDL Cholesterol Cholesterol/HDL Ratio 08/21/22 08/21/22 08/21/22 05:30 05:30 05:30 Corrected WBC 13.6 H Uncorrected WBC Count 13.6 H RBC 4.66 Hgb 14.6 Hct 42.7 MCV 91.6 MCH 31.4 MCHC 34.3 RDW 13.5 Plt Count 171 MPV 9.5 Neut % (Auto) 85.4 Lymph % (Auto) 8.2 [place] % (Auto) 6.1 Eos % (Auto) 0.1 Baso % (Auto) 0.2 Nucleat RBC Rel Count 0.0 Neut # (Auto) 11.7 H Lymph # (Auto) 1.1 [place] # (Auto) 0.8 Eos # (Auto) 0.0 Baso # (Auto) 0.0 Monocyte Dist Width PT INR APTT PHA Creatinine Clear 74.81 Sodium 138 Potassium 3.8 Chloride 103 Carbon Dioxide 27.1 Anion Gap 11.7 BUN 12 Creatinine 0.71 Est GFR (CKD-EPI) > 60.0 Glucose 162 H Calcium 9.4 Total Creatine Kinase Troponin I High Sens 34217.9 H* B-Natriuretic Peptide Triglycerides 124 Cholesterol 132 [...] evolution today [facility] (2) Heart block: Assessment/Problem Details: Resolved with cheondoism of flow to the dominant right coronary [...] <Electronically signed by Elpidio Andres MD> 08/21/22 08 [facility] Work Phone: Reason for referral (narrative)* Consultation (Routine) - AuthorizedSpecialtyDiagnoses / ProceduresReferred By Contact Referred To ContactCardiology Diagnoses Arteriosclerotic cardiovascular disease Abnormal EKG Mixed hyperlipidemia Procedures Follow Up In Cardiology Ashutosh Ling MD [address] [place] [address] 2, [address] [address] Ashutosh Ling MD [address] [place] [address] 2, [place] [phone] Referral IDStatusReasonStart DateExpiration DateVisits RequestedVisits [id number]/22/202311/ [facility] Work Phone: Reason for referral (narrative)* Consultation (Routine) - AuthorizedSpecialtyDiagnoses / ProceduresReferred By Contact Referred To ContactCardiology Diagnoses Arteriosclerotic cardiovascular disease Procedures Follow Up In Cardiology Ashutosh Ling MD [address] [place] [address] 2, [address] [address] Ashutosh Ling MD [address] [place] [address] 2, [place] [phone] Referral IDStatusReasonStart DateExpiration DateVisits RequestedVisits [id number]/8/20245/ [facility] Work Phone: Family History No Family History Records FoundUnknown Family Member Name Dates Details Family history of hypertensi on: Father(V17.49, Z82.49) Status:ActiveFamily history of vertigo: Mother(V19.3, Z83.52) Status:Active Unknown Family Member Name Dates Details Family history of hypertensi on: Father(V17.49, Z82.49) Status:ActiveFamily history of vertigo: Mother(V19.3, Z83.52) Status:Active Unknown Family Member Name Dates Details Family history of hypertensi on: Father(V17.49, Z82.49) Status:ActiveFamily history of vertigo: Mother(V19.3, Z83.52) Status:Active Unknown Family Member Name Dates Details Family history of vertigo: M other(V19.3, Z83.52) Status:ActiveFamily history of hypertension: Father(V17.49, Z82.49) Status:Active Unknown Family Member Name Dates Details Family history of hypertensi on: Father(V17.49, Z82.49) Status:ActiveFamily history of vertigo: Mother(V19.3, Z83.52) Status:Active Unknown Family Member Name Dates Details Family history of hypertensi on: Father(V17.49, Z82.49) Status:ActiveFamily history of vertigo: Mother(V19.3, Z84.89) Status:Active Unknown Family Member Name Dates Details Family history of hypertensi on: Father(V17.49, Z82.49) Status:ActiveFamily history of vertigo: Mother(V19.3, Z84.89) Status:Active Unknown Family Member Name Dates Details Family history of hypertensi on: Father(V17.49, Z82.49) Status:ActiveFamily history of vertigo: Mother(V19.3, Z84.89) Status:Active Unknown Family Member Name Dates Details Family history of hypertensi on: Father(V17.49, Z82.49) Status:ActiveFamily history of vertigo: Mother(V19.3, Z84.89) Status:Active Unknown Family Member Name Dates Details Family history of hypertensi on: Father(V17.49, Z82.49) Status:ActiveFamily history of vertigo: Mother(V19.3, Z84.89) Status:Active Unknown Family Member Name Dates Details Family history of hypertensi on: Father(V17.49, Z82.49) Status:ActiveFamily history of vertigo: Mother(V19.3, Z84.89) Status:Active Relationship Condition Age at Onset Recorded Date/T sim mother Diabetes mellitus Unknown Heart diseaseUnknownfatherHypertensionUnknownbrotherHeart diseaseUnknown Myocardial infarctionUnknownHistory of percutaneous transluminal coronary angioplastyUnknownParoxysmal atrial fibrillationUnknown Chief Complaint OLAF BRIONES is being seen [...] Admit Date Bilateral impacted cerumen May 05 025 12:34pm Reason for Visit Admit Date Bilateral impacted cerumen May 05 025 12:34pm Coronary artery disease invo lving [place] coronary artery of [place] heart [place] June 25, 2024 1:39pm Essential (primary) hypertension June 1:39pm Mixed hyperlipidemia June 25, 2024 1:39p m S/P coronary artery stent placement June 25, 2024 1:39pm Additional Source Comments Reason for Visit (unrecogniz ed section and content) ReasonCommentsFollow Up Phone CallAll ClearReasonCommentsPatient UpdateReason CommentsFollow-up4 monthReasonCommentsFollow-ak4xBtzuokhktPqigstrxt / Procedures Referred By ContactReferred To ContactCardiology Diagnoses Arteriosclerotic cardiovascular disease Abnormal EKG Mixed hyperlipidemia Procedures Follow Up In Cardiology Ashutosh Ling MD [address] [address], [address] [address] Ashutosh Ling MD [address] [facility] 2, [address] [address] Referral IDStatusReasonStart DateExpiration DateVisits RequestedVisits [id number] / Procedures Referred By ContactReferred To ContactCardiology Diagnoses Arteriosclerotic cardiovascular disease Procedures Follow Up In Cardiology Ashutosh Ling MD [address] [facility] 2, [address] [place] [address] Phone: tel: fax: Ashutosh Ling MD [address] [facility] 2, [address] [place] [address] Phone: tel: fax: Referral IDStatusReasonStart DateExpiration DateVisits RequestedVisits [id number]/202511ReasonCommentsMedicare Annual Wellness Visit Subsequent Care Team (unrecognized sect ion and content) Team Status: Active Member Role Status Dates NON STAFF Primary Care Provider Active Team Status: Inactive Member Role Status Dates NON STAFF Primary Care Provider Active Matt Joy ProviderActiveW Steve Zamora DOAdmit Provider, Attending ProviderActiveMohamsoy Barney MDOther ProviderActive Team Status: Active Member Role Status Dates NON STAFF Primary Care Provider Active Matt Joy ProviderActiveW Steve Zamora DOAttending Provider ActiveTeam MemberRelationshipSpecialtyStart DateEnd Date Jame Barraza MD [address] [place], [place] [id number] PCP - [facility] Medicine08/31/22Team MemberRelationshipSpecialtyStart DateEnd Date Jame Barraza MD [address] [place] [address] PCP - [facility] Medicine08/31/22Team MemberRelationshipSpecialtyStart DateEnd Date Ashutosh Ling MD [address] [facility] 2, [facility] [address] [place] [address] PCP - [employer] PCP08/18/22 Dav Peguero MD [address] [place] [address] [address] [place] [address] PCP - [facility]01/09/23Team MemberRelationshipSpecialtyStart Date End Date Dav Peguero MD PCP - [facility]01/09/23Team MemberRelationshipSpecialtyStart Date End Date Dav Peguero MD [address] [place] [address] PCP - [facility]10/09/22 Dav Peguero MD [address] [facility] [address] [place] [address] [place] [address]/Team MemberRelationshipSpecialtyStart DateEnd Date Dav Peguero MD PCP - [facility]01/09/23Team MemberRelationshipSpecialtyStart Date End Date Dav Peguero MD [address] [facility] [address] [place] [address] PCP - [facility]10/09/22 Dav Peguero MD [address] [place] [address] [place] [address]/Team MemberRelationshipSpecialtyStart DateEnd Date Dav Peguero MD [address] [place] [address] PCP - [facility]10/09/22 Dav Peguero MD [address] [place] [address] PCP - [facility]/ Team Status: Active Member Role Status Dates Dav Peguero MD Primary Care Provider Active Team Status: Inactive Member Role Status Dates Dav Peguero MD Primary Care Provider Active S tart: May 05, 2024 End: May 05mbJill Camacho ProviderActiveStart: May 05, 2024 End: May 05, 2024 Team Status: Inactive Member Role Status Dates Benigno Harper MD Attending Provider Activ e Start: June 25, 2024 End: June 25, 2024[facility], Referring Provider ActiveStart: June 25, 2024 End: June 25, 2024 Team Status: Active Member Role Status Ezio Peguero MD Primary Care Provider Active S tart: June 25, 2024 Wendy Rivera ProviderActiveStart: June 25, 2024 Team Status: Inactive Member Role Status Dates Dav Peguero MD Primary Care Provider Active S tart: June 25, 2024 End: June 25, 2024Georadela Harper MDAttending ProviderActiveStart: June 25, 2024 End: June 25, 2024Team MemberRelationshipSpecialtyStart DateEnd Date Dav Peguero MD [address] [facility] [address] [place] [address] PCP - [facility]10/09/22 Dav Peguero MD [address] [facility] [address] [place] [address] PCP - [facility]/ (unrecognized sect ion and content) No Status Records FoundNo Status Records FoundNo Status Records FoundNo Status Records FoundNo Status Records FoundNo Status Records FoundNo Status Records FoundNo Status Records FoundNo Status Records FoundNo Status Records Found INFORMATION SOURCE (unrecogn ized section and content) DATE CREATED AUTHOR 11/15/2021 [facility] DATE CREATED AUTHOR AUTHOR'S ORGANIZ ATION 09/06/2022 [employer] DATE CREATED AUTHOR AUTHOR'S ORGANIZ ATION 09/07/2022 [facility] DATE CREATED AUTHOR AUTHOR'S ORGANIZ ATION 10/10/2022 [facility] DATE CREATED AUTHOR AUTHOR'S ORGANIZ ATION 02/28/2024 [facility] DATE CREATED AUTHOR AUTHOR'S ORGANIZ ATION 03/29/2024 [facility] DATE CREATED AUTHOR AUTHOR'S ORGANIZ ATION 04/04/2024 [facility] DATE CREATED AUTHOR AUTHOR'S ORGANIZ ATION 04/06/2024 [facility] DATE CREATED AUTHOR AUTHOR'S ORGANIZ ATION 06/27/2024 [facility] DATE CREATED AUTHOR AUTHOR'S ORGANIZ ATION 12/12/2024 [facility] Goals (unrecognized section and content) Goals may be documented in a n alternate section Source Comments (unrecognize d section and content) In the event this informatio n is protected by the Federal Confidentiality of Alcohol and Drug Abuse Patient Records regulations: The Federal rules restrict any use of the information to criminally investigate or prosecute any alcohol or drug abuse patient.[facility] the event this information is protected by the Federal Confidentiality of Alcohol and Drug Abuse Patient Records regulations: The Federal rules restrict any use of the information to criminally investigate or prosecute any alcohol or drug abuse patient.[facility] FOR RECORDS PERTAINING TO PATIENTS WHO [...] BE BASED ON THE PRIMARY CLINICAL RECORDS. [facility] [employer] [facility] provides no warranty or guarantee of the accuracy or completeness of information in this document.
--- NOTE | 2024-12-16 09:19 | PM.CN ---
Consult Note: HPI Data of Consult Patient: known to practice within the last 3 years Requesting Physician: Ria Kirby NP Primary Care Provider: DAV PEGUERO Consult Narrative Reason for consult: low back and BLE pain Narrative: Thomas Thorne a pleasant 79 year old male presents for evaluation of moderate to severe low back and bilateral hip pain, hx of severe stenosis and degenerative changes. Recently underwent bilateral L4/5 TFESI with 75% improvement ongoing. declined to schedule NS consult as pain is well controlled. noting bilateral posterior hip pain 2/10 increasing to 5/10 with stairs, standing, walking, getting into lifted trucks. denies falls/injury. continues to engage in HEP as tolerated cc:: CC: Ria Kirby NP Review of Systems ROS Status of ROS 10 or more systems reviewed and unremarkable except as noted in history and below Genitourinary Denies: painful urination, urinary frequency, urinary urgency or difficulty urinating Musculoskeletal Denies: back pain or joint pain PFSH PFSH Medical History Enlarged prostate ?N40.0 - Benign prostatic hyperplasia without lower urinary tract symptoms (ICD-10) Low back pain ?M54.50 - Low back pain, unspecified (ICD-10) Hypertension ?I10 - Essential (primary) hypertension (ICD-10) Kidney stone Surgical History History of transurethral resection of prostate ?Z98.890 - Other specified postprocedural states (ICD-10) ?Z90.79 - Acquired absence of other genital organ(s) (ICD-10) Meds Home Medications and Allergies Home Medications ?Medication ?Instructions ?Recorded ?Confirmed ?Type allopurinol 300 mg tablet 300 mg PO DAILY 01/23/23 12/07/24 History amlodipine 5 mg tablet 5 mg PO DAILY 01/23/23 12/07/24 History aspirin 81 mg tablet,delayed 81 mg PO DAILY 01/23/23 12/07/24 History release atorvastatin 80 mg tablet 40 mg PO DAILY 01/23/23 12/07/24 History carvedilol 6.25 mg tablet 6.25 mg PO Q12H 01/23/23 12/07/24 History lisinopril 2.5 mg tablet 2.5 mg PO DAILY 01/23/23 12/07/24 History nitroglycerin 0.4 mg sublingual 0.4 mg sublingual Q5M PRN chest 01/23/23 12/07/24 History tablet pain Allergies Allergy/AdvReac Type Severity Reaction Status Date / Time amoxicillin Allergy Unknown Rash Verified 12/07/24 11:27 albuterol Allergy Headache Verified 12/07/24 11:27 hydrochlorothiazide Allergy Rash Verified 12/07/24 11:27 Exam Constitutional Documenting provider has reviewed patient's vital signs: yes Common normals: no apparent distress, oriented x3, healthy appearing, alert and well nourished General appearance: cooperative HENME Common normals: normocephalic, hearing grossly normal bilaterally and moist oral mucous membranes Head and scalp: normocephalic Eye Common normals: PERRL Pupil: PERRL Neck & C-Spine Common normals: full ROM General: normal visual inspection Chest Common normals: inspection of chest normal Respiratory Common normals: normal respiratory effort, no retractions and no use of accessory muscles Back & Pelvis Lumbar spine/lower back: lumbar ROM normal, ROM limited, pain with ROM and straight leg raise negative bilaterally; no lumbar spinal tenderness Sacroiliac joints: SI joint(s) abnormal Other: strength 5/5 in BLE sensation intact BLE bilateral sij positive jessica(patricks), gaenslens, thigh thrust, compression test Extremity Common normals: normal to inspection and full ROM Other: negative internal/external rotation of bilateral hips Neuro Common normals: oriented x3 Sensorium/orientation: alert Psych Common normals: mental status grossly normal, thought process normal, cooperative, affect normal, speech normal and activity/motor behavior normal Speech: normal speech Thought process: normal thought process Results Imaging Lumbar MRI: Attestation: I have reviewed the pertinent imaging results. Radiologist's impression: There is continued slight anterolisthesis of L4 and L5. Heterogeneous bone marrow is again noted. There are no acute compression fractures or marrow edema. The conus medullaris is within normal limits for caliber, position and signal intensity. Bilateral renal cysts are seen. There are no other paraspinal soft tissue abnormalities. At T12-L1, there is no disc disease or stenosis. At L1-2, there is slight loss of disc height. Mild annular disc bulging is again visualized greater extending laterally. Mild thecal sac effacement is present. Moderate bilateral foraminal encroachment is noted. At L2-3, the disc is within normal limits for height. Annular disc bulging is again visualized. There is minor facet and ligamentous hypertrophy. There is mild to moderate thecal sac effacement and bilateral foraminal encroachment. At L3-4, the disc is within normal limits for height. There is annular disc bulging with extension laterally on both sides. There is facet and ligamentous hypertrophy with severe central stenosis similar to the prior. There is moderate foraminal encroachment on the right and mild to moderate on the left. At L4-5, there is annular disc bulging. There is facet and ligamentous hypertrophy with severe central stenosis and near complete effacement of the thecal sac. There is at least moderate narrowing of the neural foramen on both sides, greater on the left. At the lumbosacral junction no significant disc bulge or herniation is present. There is mild facet disease. No stenosis is identified. Additional Findings Additional findings: If on a controlled substance or opioids, I have checked an [place] report on this patient and there are no aberrancies noted in the prescribing history.??If on a controlled substance or opioid a drug screen was completed and reviewed within the last year, and if there has not been a drug screen completed we ordered one today to monitor higher risk, state monitored pain medication use. As part of providing excellent, safe, comprehensive care, the following was completed at our patient's visit: 1. A medication reconciliation and review to ensure accurate knowledge of current/active medications, including asking our patients to inform us about any [id number] medications or herbal remedies/nutritional supplements/alternative remedies. 2. A review to specifically ensure our patients have had annual screening for screening for depression, screening for tobacco use, and screening for unhealthy alcohol use. For concerning screenings had a discussion with the patient, provided patient education, and recommended follow-up with primary care provider when appropriate. If patient noted with a risk of falling, they received education on strength, gait, and balance training to prevent future risk of falling. Portions of this note may have been carried over from the previous visit and updated as appropriate. Please note this office utilizes paper charting in addition to the electronic medical record. A list of current medications, vitals, and PMH is available there as the clinical staff outside of myself do not have access to [employer] charting during the clinic day operations. As part of providing quality comprehensive care the current medications, vitals, and PMH were reviewed in the paper chart. Assessment and Plan Assessment and Plan (1) Bilateral sacroiliitis: (2) Lumbar stenosis with neurogenic claudication: Assessment and Plan: ? Plan The patient has had over 3 months of moderate to severe low back and bilateral SIJ pain with functional impairment and inadequate response to conservative care including NSAIDS (unless there are contraindication such as concurrent blood thinners), multiple oral or topical pain medications, and home exercise program/physical therapy.? Patient has completed >6 weeks of guided home exercise program and/or formal physical therapy program without relief of their symptoms.? The Oswestry Disability Index was completed, and the patient scored a 24% bilateral SIJ injection under fluoroscopy when pt calls to schedule continue HEP as tolerated f/u 2 weeks after injection or 3 months
== END 2024-12-16 08:51 | disposition home or self-care (01) ==
PROVIDERS: PCP Family Medicine; Visit Provider Nurse Practitioner
DX: M46.1 Sacroiliitis, not elsewhere classified (principal); M48.062 Spinal stenosis, lumbar region with neurogenic claudication
CPT/HCPCS: G0463